=== PATIENT | female | born 1970 | race Caucasian/White ===

== ENCOUNTER 2022-01-09 11:30 | Outpatient (RCR) | payer MEDICARE, MEDICAID, SELFPAY ==
--- OUTSIDE RECORDS SUMMARY | 2021-12-27 14:47 | XMS_ITS | Continuity of Care Document ---
:1970 Author Care Team Providers Name Role Phone MD Austen H Attending Physician MD Emily M Primary Care Physician Allergies, Adverse Reactions, Alerts No known allergies Social History Smoking Status Status Start Date End Date Date of Observat ion Ex-smoker (finding) May 8:25pm Observation Status Observation Response Date of Response Smoker January 06, 2020 10:5 9am Does not drink alcohol January 06, 2020 1 0:59am Marijuana use January 06, 2020 2:04 pm Additional Data Assigned Sex Female Problems Active Problems Medical Problem Onset Date Status Myeloproliferative disorder 2016 Active Anemia Active GERD (gastroesophageal reflux disease) A ctive Splenomegaly Active Headache behind the eyes Active Depression Active Hypertension Active Anxiety Active 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 Opioid dependence Active Pulmonary hypertension Active Wrist tendonitis Active Myelofibrosis 2016 Active History of bone marrow biopsy Active Medications Medication Status Dose Units Route Directions Qty Days Start End Ins tructions Date Date Acetaminophe Active 500-10 MG PO Every 6 100 NO MORE THAN n (Tylenol 00 Hours as 4000 M G/DAY Extra needed Strength) 500 Mg TAB Allopurinol Active 300 MG PO Daily October 01, 2021 1:45pm Calcium Active 2 CAPSULE PO Three Times 180 Februar Acetate A Day 2021 9:04am Fedratinib Active 100 MG PO Twice A Day 2 caps BID Hcl (Inrebic) 100 Mg CAP Folic Acid Active 1 MG OR Daily August 06, 2021 11:47am Lorazepam Active 0.5-1 MG PO Every 6 November PRN Hours as , NAUSEA/VOMI TI needed 2021 NG 11:36am Morphine Active 15 MG PO Qhs 30 10 December Sulfate , (Morphine 2021 Sulfate Er) 11:36am 15 Mg TABCR Morphine Active 1 TAB PO Twice A Day 60 30 November Take one Sulfate , tablet every (Morphine 2021 12 hours Sulfate Er) 11:36am 60 Mg TABCR Naloxone Hcl Active 4 MG NA As Directed 1 Decembe If unresponsive, or not breathing. 1 spray into nostril. (Narcan) 4 r , Repeat every 2 to 3 minutes in alternating nostrils if Mg/0.1 Ml 2020 needed. Ca 911 for assistance. SPR 1:00pm Oxycodone Active 5 MG PO Every 6 120 November Hcl Hours as 24th, needed 2021 11:36am Polyethylene Active Glycol 3350 Sennosides Active (Senna-Lax) 8.6 Mg TAB Sodium Active 1 PO As Needed Bicarbonate- Citric Acid (Tiffanie-Seltze r Heartburn Re) Heartbrn TAB Thiamine Hcl Active 100 MG PO Daily 30 Decembe Take one daily X 7 days, starting today (Vitamin B r , then norma e one weekly while on Fedratinib 1) 100 Mg 2020 TAB 12:01pm Torsemide Active 20 MG PO Twice A Day October 01, 2021 1:45pm Allopurinol Disconti 300 MG PO Daily July nued 2021 11:47am 1:45pm Allopurinol Disconti 300 MG PO Daily 30 Januar nued y 2021 11:47a m Allopurinol Disconti Unknow PO Daily 30 Decemb nued n Dose er 2020 1:01pm Calcium Disconti 2 CAP PO Three Times 180 Februar Februa Acetate nued A Day y 2021, 10:15am 2021 9:04am Calcium Disconti 2 CAP PO Three Times 180 July Februa Acetate nued A Day 2021, 11:51am 2021 10:15a m Calcium Disconti 2 CAP PO Three Times 180 Decembe Januar Acetate nued A Day r 2020, 1:37pm 2021 11:51a m Calcium Disconti 2 CAP PO Three Times 180 Decemb Acetate nued A Day er 2020 1:37pm Fedratinib Disconti 100 MG PO Twice A Day October Hcl nued , (Inrebic) 2021 100 Mg CAP 12:43p m Folic Acid Disconti Januar nued y 2021 11:47a m Lorazepam Disconti 0.5-1 MG PO Every 6 October PRN nued Hours as , 24, NAUSEA/VOMI TI needed 2021 2021 NG 3:16pm 11:31a m Lorazepam Disconti 0.5-1 MG PO Every 6 September PRN nued Hours as , , NAUSEA/VOMI TI needed 2021 2021 NG 1:46pm 3:16pm Lorazepam Disconti 0.5-1 MG PO Every 6 September PRN nued Hours as y , , NAUSEA/VO MITI needed 2021 2021 NG 10:16am 1:46pm Lorazepam Disconti 0.5-1 MG OR Every 6 60 Julyua 1- 2 tabs nued Hours as 24, ry every 6 tyler rs needed 2021, as needed or 11:51am 2021 at HS 10:15a m Lorazepam Disconti 0.5-1 MG OR Every 6 60 Decembe Januar 1- 2 tabs nued Hours as r 21st, y every 6 h ours needed 2020 24, as needed or 12:20pm 2021 at HS 11:50a m Lorazepam Disconti 1-2 MG OR Every 6-8 60 Decembe Decemb 1-2 tabs nued Hours as r 17th, er every 6 h ours needed 2020, as needed or 9:07am 2020 at HS 12:20p m Lorazepam Disconti 1-2 Every 6-8 Decemb 1- 2 tabs nued Hours as er every 6 tyler rs needed 17th, as needed or 2020 at HS 9:02am Morphine Disconti 1 TAB PO Twice A Day 60 October Ta ke one Sulfate nued , tablet every (Morphine 2021 2021 12 hours Sulfate Er) 3:16pm 11:31a 60 Mg TABCR m Morphine Disconti 15 MG PO Qhs October Sulfate nued , , (Morphine 2021 2021 Sulfate Er) 3:16pm 11:31a 15 Mg TABCR m Morphine Disconti 1 TAB PO Twice A Day 60 September Ta ke one Sulfate nued , tablet every (Morphine 2021 2021 12 hours Sulfate Er) 1:47pm 3:16pm 60 Mg TABCR Morphine Disconti 15 MG PO Qhs 30 September Sulfate nued , , (Morphine 2021 2021 Sulfate Er) 1:47pm 3:16pm 15 Mg TABCR Morphine Disconti 1 TAB PO Twice A Day 60 September Take one Sulfate nued y , tablet zhang ry (Morphine 2021 2021 12 hours Sulfate Er) 10:16am 1:47pm 60 Mg TABCR Morphine Disconti 15 MG PO Qhs 30 September Sulfate nued y , (Morphine 2021 2021 Sulfate Er) 10:16am 1:47pm 15 Mg TABCR Morphine Disconti 1 TAB PO Twice A Day 60 July Take one Sulfate nued , ry tablet every (Morphine 2021, 12 hours Sulfate Er) 11:51am 2021 60 Mg TABCR 10:15a m Morphine Disconti 15 MG PO Qhs 30 July Sulfate nued , ry (Morphine 2021, Sulfate Er) 11:51am 2021 15 Mg TABCR 10:15a m Morphine Disconti 1 TAB PO Twice A Day 60 30 Decembe Januar Take one Sulfate nued r , y tablet zhang ry (Morphine 2020, 12 hours Sulfate Er) 12:20pm 2021 60 Mg TABCR 11:50a m Morphine Disconti 15 MG PO Qhs 30 30 Decembe Januar Sulfate nued r , y (Morphine 2020, Sulfate Er) 12:20pm 2021 15 Mg TABCR 11:50a m Morphine Disconti 1 TAB PO Twice A Day Decemb T hodan one Sulfate nued er tablet every (Morphine 21st, 12 hours Sulfate Er) 2020 60 Mg TABCR 12:20p m Morphine Disconti 15 MG PO Bedtime 60 Decembe Decemb Sulfate nued r 21st, er (Morphine 2020, Sulfate Er) 11:08am 2020 15 Mg TABCR 12:20p m Morphine Disconti 15 MG PO Every 12 60 Decembe Decemb Sulfate nued Hours r 17th, er (Morphine 2020, Sulfate Er) 9:07am 2020 15 Mg TABCR 11:08a m Morphine Disconti Unknow OR Bedtime Decemb Sulfate nued n Dose er (Morphine 21st, Sulfate Er) 2020 Unknown 11:07a Strength CAP m Morphine Disconti 15 MG PO Every 12 60 Decemb Sulfate nued Hours er (Morphine 17th, Sulfate Er) 2020 15 Mg TABCR 9:02am Morphine Disconti Decemb Sulfate nued er (Morphine 3rd, Sulfate Er) 2020 15 Mg TABCR 1:01pm Oxycodone Disconti 5 MG PO Every 6 120 October Hcl nued Hours as , , needed 2021 2021 3:16pm 11:31a m Oxycodone Disconti 5 MG PO Every 6 120 September Hcl nued Hours as , , needed 2021 2021 1:47pm 3:16pm Oxycodone Disconti 5 MG PO Every 6 120 Februar September Hcl nued Hours as y , , needed 2021 2021 10:16am 1:47pm Oxycodone Disconti 5 MG PO Every 6 120 July Februa Hcl nued Hours as , ry needed 2021, 11:49am 2021 10:15a m Oxycodone Disconti 5 MG PO Every 6 120 Decembe Januar Hcl nued Hours as r , y needed 2020, 12:33pm 2021 11:48a m Oxycodone Disconti 1 TAB PO Every 6-8 120 Decembe Decemb Take one Hcl nued Hours as r 17, er tablet ev iona needed 2020, 6 hours as 9:07am 2020 needed 12:33p m Oxycodone Disconti 1 TAB PO Every 6-8 Decemb Ta ke one Hcl nued Hours as er tablet ever y needed 17th, 6 hours as 2020 needed 9:02am Oxycodone Disconti Decemb Hcl nued er (Oxycontin) 3rd, 15 Mg TABCR 2020 1:01pm Pantoprazole Disconti 40 MG PO Twice A Day December mb Sodium nued , er 2019 9, 10:21am 2020 2:15pm Tamsulosin Disconti 0.4 MG PO Daily 10 January Novemb Hcl nued , er 2019 9, 2:19pm 2020 2:15pm Torsemide Disconti 20 MG PO Twice A Day 90 Februar September nu y , , 2021 2021 10:15am 1:45pm Torsemide Disconti 20 MG PO Twice A Day 90 Decembe Febru a nued r 7th, ry 2020, 12:17pm 2021 10:15a m Torsemide Disconti 20 MG PO Daily 90 Decembe Decemb nued r 3rd, er 2020 7th, 1:38pm 2020 12:17p m Torsemide Disconti 20 MG PO Daily 90 Decemb nued er , 2020 1:38pm Relevant Diagnostic Tests and/or Laboratory Data Laboratory Results Test Date/Time Result Interpretation Reference Result Comment Performing Range Site White Blood December 24, 3.87 5.00-10.00 [facility] Count [address] [facility] 9:05am [facility] [address] Red Blood December 24, 2.12 3.90-5.03 [facility] Count [address] [facility] 9:05am [facility] [address] Hemoglobin December 24, 6.0 12.0-15.5 CRITICAL READ [facility] [address] [facility] 9:05am [place] [address] Hematocrit December 24, 19.4 34.9-44.5 [facility] [address] [facility] 9:05am [place] [address] Mean December 24, 92 82-98 [facility] Corpuscular 2021 [address] [facility] Volume 9:05am [place] [address] Mean December 24, 28 27-34 [facility] Corpuscular 2021 [address] [facility] Hemoglobin 9:05am [facility] [address] Mean December 24, 31 32-36 [facility] Corpuscular 2021 [address] [facility] Hemoglobin 9:05am [facility] [address] Concent Platelet December 24, 95 150-450 [facility] Count [address] [facility] 9:05am [place] [address] RDW December 24, 27.8 11.5-15.3 [facility] Coefficient 2021 1999 [facility] 9:05am [place] [address] Neutrophils December 24, 62.3 50.0-70.0 [facility] (%) (Auto) 2021 [address] [facility] 9:05am [place] [address] Lymphocytes December 24, 12.4 25.0-45.0 [facility] (%) (Auto) 2021 [address] [facility] 9:05am [place] [address] Monocytes (%) December 24, 8.5 0.00-11.0 [facility] (Auto) [address] [facility] 9:05am [place] [address] Eosinophils December 24, 0.5 0.0-7.0 [facility] (%) (Auto) 2021 [address] [facility] 9:05am [place] [address] Basophils (%) December 24, 1.3 0.0-3.0 [facility] (Auto) [address] [facility] 9:05am [place] [address] Immature December 24, 15.0 [facility] Granulocyte % 2021 1999 [facility] (Auto) 9:05am [facility] [address] Neutrophils # December 24, 2.41 1.70-7.00 [facility] (Auto) [address] [facility] 9:05am [facility] [address] Lymphocytes # December 24, 0.48 0.90-2.90 [facility] (Auto) [address] [facility] 9:05am [facility] [address] Monocytes # December 24, 0.33 0.30-0.90 [facility] (Auto) [address] [facility] 9:05am [place] [address] Eosinophils # December 24, 0.02 0.00-0.50 [facility] (Auto) [address] [facility] 9:05am [facility] [address] Basophils # December 24, 0.05 0.00-0.20 [facility] (Auto) [address] [facility] 9:05am [place] [address] Immature December 24, 0.58 [facility] Granulocyte # 2021 [address] [facility] (Auto) 9:05am [facility] [address] Urine Color August YELLOW YELLOW [facility] [address] [facility] 11:28am [place] [address] Urine February CLEAR CLEAR [facility] Appearance [address] [facility] 11:28am [place] [address] Urine Glucose February NEGATIVE NEGATIVE [facility] (UA) [address] [facility] 11:28am [place] [address] Urine February NEGATIVE NEGATIVE [facility] Bilirubin [address] [facility] 11:28am [place] [address] Urine Ketones February NEGATIVE NEGATIVE [facility] [address] [facility] 11:28am [place] [address] Urine February 1.015 1.000-1.03 [facility] Specific [address] [facility] [place] 11:28am [place] [address] Urine pH August 7.0 5.0 - 8.5 [facility] [address] [facility] 11:28am [place] [address] Urine Protein February NEGATIVE NEGATIVE [facility] [address] [facility] 11:28am [place] [address] Urine February 0.2 0.2 [facility] Urobilinogen [address] [facility] [address] 11:28am [place] [address] Urine Nitrite February NEGATIVE NEGATIVE [facility] [address] [facility] 11:28am [place] [address] Urine Blood February NEGATIVE NEGATIVE [facility] [address] [facility] 11:28am [place] [address] Urine February NEGATIVE NEGATIVE [facility] Leukocyte [address] [facility] Esterase 11:28am [place] [address] Urine WBC February 0 0-2 [facility] [address] [facility] 11:28am [place] [address] Urine RBC February 0 0-2 [facility] [address] [facility] 11:28am [place] [address] Urine Other February 0 0 [facility] Casts [address] [facility] 11:28am [place] [address] Urine Other February 0 0 [facility] Crystals [address] [facility] 11:28am [place] [address] Urine February 0 0-FEW [facility] Squamous [address] [facility] Epithelial 11:28am [facility] [place] [address] Cells Urine February 0 0-FEW [facility] Bacteria [address] [facility] 11:28am [place] [address] Urine Mucus February 0 0 [facility] [address] [facility] 11:28am [place] [address] Urine February 0 0 [facility] Amorphous [address] [facility] Sediment 11:28am [place] [address] Urine Other February 0 [facility] Sediment [address] [facility] 11:28am [facility] [address] Random December 24, 122 60-115 [facility] Glucose [address] [facility] 9:05am [facility] [address] Blood Urea December 24, 33 7-30 [facility] Nitrogen [address] [facility] 9:05am [facility] [address] Creatinine December 24, 1.1 0.5-1.5 [facility] [address] [facility] 9:05am [place] [address] Estimated December 24, 57.05431 [facility] Creatinine 2021 [address] [facility] Clearance 9:05am [facility] [address] Sodium Level December 24, 140 135-149 [facility] [address] [facility] 9:05am [facility] [address] Potassium December 24, 5.0 3.6-5.1 [facility] Level [address] [facility] 9:05am [facility] [address] Chloride December 24, 102 96-114 [facility] Level [address] [facility] 9:05am [facility] [address] Carbon December 24, 32 20-32 [facility] Dioxide Level 2021 [address] [facility] 9:05am [facility] [address] Calcium Level December 24, 8.9 8.4-10.6 [facility] [address] [facility] 9:05am [facility] [address] Phosphorus October 3.9 2.5-4.5 [facility] Level [address] [facility] 12:14pm [facility] [address] Total Protein December 24, 6.6 6.0-8.3 The use of [facility] 2021 Eltrombopag, a [address] [facility] 9:05am bone marrow [place] [address] stimulant used to treat thrombocytopeni a and aplastic anemia, interferes with this measurement of total protein. A 5% bias has been observed. Albumin December 24, 4.5 3.3-5.0 [facility] [address] [facility] 9:05am [place] [address] Total December 24, 1.0 0.1-1.5 [facility] Bilirubin [address] [facility] 9:05am [place] [address] Aspartate December 24 12-35 [facility] Amino Transf [address] (AST/SGOT) 9:05am [facility] [place] [address] Alanine December 24 4-35 [facility] Aminotransfer [address] 9:05am [place] [address] (ALT/SGPT) Alkaline December 24 40-150 [facility] Phosphatase [address] 9:05am [place] [address] Amylase Level June 18-89 [facility] [address] [facility] 10:54am [place] [address] Lipase June 23-300 [facility] [address] [facility] 10:54am [place] [address] Troponin I August < 0.01 0.00-0.04 NORMAL- <0.04 [facility] 2021 NG/MLINDETERMIN [address] [facility] 1:18pm ATE- 0.04-0.09 [facility] [address] NG/MLMYOCARDIAL INJURY- >= 0.10 NG/MLPatients taking a high dose (>5mg/day) of Biotin supplement (vitamin B7) will demonstrate a >10% negative bias for this test. Whole Blood June 70-180 INTERPRETIVE [facility] Tactile Vitamin B1 2020 INFORMATION: [address] Level 10:54am Vitamin B1, [facility] [address] Whole BloodThis assay measures the concentration of thiamine diphosphate(TDP ), the primary active form of vitamin B1. Approximately 90percent of vitamin B1 present in whole blood is TDP. Thiamineand thiamine monophosphate, which comprise the remaining 10percent, are not measured.This test was developed and its performance characteristics determined by [facility]. It has not been cleared orapproved by the [place] Food and Drug Administration. This test wasperformed in a CLIA certified laboratory and is intended forclinical purposes.Perfor med By: [facility] [id number] [place] [id number] Director: Sulema Worley MD Microbiology Results Procedure Source Result Collection Result Result Performin g Date/Time Date/Time Comment Site Urine Culture URINE,LOLITA < 50,000 August 21August N [facility] Lab N CATCH COL/ML MIXED 2021 11:28am [address] [facility] GRAM 8:30am [facility] [address] POSITIVE MAMI ISOLATED URINE,LOLITA NO FURTHER August 21August [facility] N CATCH WORKUP 2021 11:28am [address] [facility] 8:30am [facility] [address] Advance Directives Advance Directive Response Recorded Date/Time Has patient completed a No May 22 8:25pm Health Care Directive? Insurance Providers Guarantor Jennifer Mendez Address [address] [place] [id number] Contact Info. Home Phone: Payer Policy Id Coverage Id Subscriber's Subscriber Id Effective E xpiration Name Date Date Medicare [id number] Jennifer Mendez [id number] Dena [facility] [id number] Jennifer Mendez [id number] Medicaid Dena Plan Encounters Encounter Location(s) Arrival/Admit Date Discharge/Depart Date Provider(s) Registered [place] December 26, 2021 [facility] 6:56am Plan of Treatment Future Tests Future scheduled test information is unavailable Pending Tests Pending diagnostic test information is unavailable Future Visits Future appointment information is unavailable Referrals to Other Providers Reason for Referral Start Provider Provider Contact Provider Address Referral Date Information [facility] PROVIDER, NOT A LOCAL Future Procedures Future procedure information is unavailable Future Medications Future medication information is unavailable Patient Instructions Blood & Blood Components (DC) Opioid Withdrawal (ED)
[2022-01-08] VITALS (7 sets, daily range): BP systolic 93–115; BP diastolic 56–77; PULSE 80–97; RESP 16–18; TEMP 36.1–36.6; O2SAT 97–100
--- NOTE | 2022-01-08 09:54 | ONC.NURNOTE ---
LS few fine cr. RLL . good air exchange through out. Heart reg s1s2
[2022-01-09 12:35] VITALS: BP 113/78; PULSE 94; RESP 16; TEMP 35.9
[2022-01-09 12:52] VITALS: BP 117/60; PULSE 89; RESP 18; TEMP 36.3
[2022-01-09 13:40] VITALS: BP 113/73; PULSE 84; RESP 18; TEMP 36.2
[2022-01-09 14:30] VITALS: BP 113/72; PULSE 80; RESP 18; TEMP 36.1
[2022-01-09 15:00] VITALS: BP 122/61; PULSE 86; RESP 18; TEMP 36
== END 2022-01-10 23:59 | disposition home or self-care (01) ==
LOC: CCIC 11:30
PROVIDERS: PCP Emergency Medicine; Visit Provider Internal Medicine Hematology & Oncology
DX: D75.81 Myelofibrosis (principal)
CPT/HCPCS: 36415; 36430; 86850; 86900; 86901; 86922; P9016

== ENCOUNTER 2022-02-05 08:30 | Outpatient (RCR) | payer MEDICARE, MEDICAID, SELFPAY ==
[2022-01-15 08:48] VITALS: BP 118/73; PULSE 96; RESP 16; TEMP 36; O2SAT 97
[2022-01-15 09:00] LABS: Basophils Percent Auto 2.2 % (0.0-3.0); Eosinophils Absolute Auto 0.02 K/uL (0.00-0.50); Eosinophils Percent Auto 0.4 % (0.0-7.0); Hematocrit 24.2 % (33.0-51.0); Immature Granulocytes Abs Auto 0.75 K/uL (0.00-0.30); Lymphocytes Percent Auto 12.7 % (20-44); Mean Corpuscular HGB Conc 30 gm/dL (32-36); Mean Corpuscular Hemoglobin 27 pg (26-34); Mean Corpuscular Volume 91 fL (80-100); Neutrophils Absolute Auto 2.82 K/uL (1.7-7.0); Neutrophils Percent Auto 60.6 % (42.0-72.0); RDW Coefficient of Variation % 24.9 % (11.5-15.5); Red Blood Count 2.65 m/uL (4.00-5.20); White Blood Count* 4.65 K/uL (4.50-11.00)
[2022-01-15 09:15] LABS: Chloride* 105 mmol/L (96-114); Potassium* 4.9 mmol/L (3.6-5.1); Sodium* 139 mmol/L (135-149)
[2022-01-15 09:18] LABS: Estimated Glomerular Filt Rate 67.36
[2022-01-15 09:19] LABS: Blood Urea Nitrogen* 28 mg/dL (7-30); Calcium* 8.8 mg/dL (8.4-10.6); Carbon Dioxide* 34 mmol/L (20-32); Glucose* 99 mg/dL (60-115)
[2022-01-15 09:27] LABS: Hemoglobin* 7.2 gm/dL (12.0-16.0); Platelet Count* 48 K/uL (140-440); Slide Review Reflex Yes
[2022-01-15 09:28] LABS: Slide Review Acceptable Review (Acceptable)
[2022-01-15 10:14] VITALS: BP 118/73; PULSE 96; RESP 20; TEMP 36.4; O2SAT 97
[2022-01-15 10:32] VITALS: BP 99/54; PULSE 83; RESP 20; TEMP 36.4; O2SAT 96
[2022-01-15 12:30] VITALS: BP 113/72; PULSE 86; RESP 16; TEMP 36.3; O2SAT 96
[2022-01-21 09:24] LABS: Basophils Percent Auto 1.9 % (0.0-3.0); Eosinophils Percent Auto 0.5 % (0.0-7.0); Hematocrit 20.8 % (33.0-51.0); Immature Granulocytes Abs Auto 0.47 K/uL (0.00-0.30); Lymphocytes Percent Auto 10.8 % (20-44); Mean Corpuscular HGB Conc 31 gm/dL (32-36); Mean Corpuscular Hemoglobin 28 pg (26-34); Mean Corpuscular Volume 91 fL (80-100); Monocytes Percent Auto 9.7 % (0.0-11.0); Neutrophils Percent Auto 64.4 % (42.0-72.0); Platelet Count* 70 K/uL (140-440); RDW Coefficient of Variation % 25.6 % (11.5-15.5); Red Blood Count 2.29 m/uL (4.00-5.20); White Blood Count* 3.71 K/uL (4.50-11.00)
[2022-01-21 09:37] LABS: Carbon Dioxide* 29 mmol/L (20-32); Chloride* 101 mmol/L (96-114); Glucose* 106 mg/dL (60-115); Potassium* 4.8 mmol/L (3.6-5.1); Sodium* 139 mmol/L (135-149)
[2022-01-21 10:45] LABS: Hemoglobin* 6.4 gm/dL (12.0-16.0); Slide Review Reflex Yes
[2022-01-21 10:47] LABS: Slide Review Acceptable Review (Acceptable)
[2022-01-21 13:02] LABS: Blood Urea Nitrogen* 41 mg/dL (7-30); Calcium* 9.3 mg/dL (8.4-10.6); Creatinine* 1.2 mg/dL (0.5-1.5); Estimated Glomerular Filt Rate 54.13
[2022-01-22 08:45] VITALS: BP 107/64; PULSE 90; RESP 16; TEMP 36.3; O2SAT 99
[2022-01-22 09:18] VITALS: BP 107/64; PULSE 90; RESP 16; TEMP 36.8
[2022-01-22 09:37] VITALS: BP 112/73; PULSE 91; RESP 14; TEMP 36.5
[2022-01-22 10:22] VITALS: BP 99/61; PULSE 88; RESP 14; TEMP 36.2; O2SAT 95
[2022-01-22 11:15] VITALS: BP 105/71; PULSE 90; RESP 14; TEMP 36.6
[2022-01-22 15:37] VITALS: TEMP 36.2
[2022-01-28 08:53] LABS: Basophils Percent Auto 1.5 % (0.0-3.0); Eosinophils Percent Auto 0.6 % (0.0-7.0); Hematocrit 19.2 % (33.0-51.0); Immature Granulocytes Abs Auto 0.46 K/uL (0.00-0.30); Lymphocytes Percent Auto 13.9 % (20-44); Mean Corpuscular HGB Conc 30 gm/dL (32-36); Mean Corpuscular Hemoglobin 28 pg (26-34); Mean Corpuscular Volume 91 fL (80-100); Neutrophils Percent Auto 62.4 % (42.0-72.0); RDW Coefficient of Variation % 26.4 % (11.5-15.5); Red Blood Count 2.11 m/uL (4.00-5.20); White Blood Count* 3.37 K/uL (4.50-11.00)
[2022-01-28 09:05] LABS: Chloride* 103 mmol/L (96-114)
[2022-01-28 09:06] LABS: Albumin* 4.2 g/dL (3.3-5.0); Potassium* 4.7 mmol/L (3.6-5.1); Sodium* 138 mmol/L (135-149)
[2022-01-28 09:09] LABS: Alanine Aminotransferase* 22 U/L (4-35); Alkaline Phosphatase* 39 U/L (40-150); Aspartate Amino Transferase* 25 U/L (12-35); Blood Urea Nitrogen* 35 mg/dL (7-30); Carbon Dioxide* 28 mmol/L (20-32); Creatinine* 1.1 mg/dL (0.5-1.5); Estimated Glomerular Filt Rate 60 ml/min; Glucose* 162 mg/dL (60-115); Total Protein* 6.3 g/dL (6.0-8.3)
[2022-01-28 09:10] LABS: Calcium* 8.4 mg/dL (8.4-10.6)
[2022-01-28 09:26] LABS: Platelet Count* 65 K/uL (140-440)
[2022-01-28 09:27] LABS: Hemoglobin* 5.8 gm/dL (12.0-16.0)
--- NOTE | 2022-01-28 10:20 | ONC.NURNOTE ---
Patient called re HGB. Type cross for 1 UNit IRRated packed cells for tomorrow am. denies bleeding or tary stools.
[2022-01-28 16:54] LABS: Slide Review Reflex No
[2022-01-29 08:05] VITALS: BP 97/56; PULSE 117; RESP 20; TEMP 36.1; O2SAT 97
[2022-01-29 08:45] VITALS: BP 97/56; PULSE 98; RESP 20; TEMP 36.1; O2SAT 97
[2022-01-29 09:03] VITALS: BP 96/66; PULSE 99; RESP 20; TEMP 36.8; O2SAT 96
[2022-01-29 09:48] VITALS: BP 103/52; PULSE 94; RESP 18; TEMP 36.4; O2SAT 96
[2022-01-29 10:37] VITALS: BP 101/52; PULSE 87; RESP 18; TEMP 36.8; O2SAT 97
[2022-01-29 10:48] VITALS: BP 121/76; PULSE 116; RESP 22; TEMP 36.9; O2SAT 94
[2022-02-01 09:35] VITALS: BP 122/81; PULSE 119; RESP 16; TEMP 36.7; O2SAT 96
[2022-02-01 10:06] VITALS: BP 122/81; PULSE 95; RESP 16; O2SAT 97
[2022-02-01 10:25] VITALS: BP 99/54; PULSE 10; RESP 16; TEMP 37; O2SAT 95
[2022-02-01 11:10] VITALS: PULSE 106; RESP 16; TEMP 36.9; O2SAT 96
[2022-02-01 12:10] VITALS: BP 100/57; PULSE 91; RESP 18; TEMP 36.2; O2SAT 96
[2022-02-01 12:45] VITALS: BP 111/72; PULSE 103; RESP 20; TEMP 36.7; O2SAT 98
[2022-02-04 08:48] LABS: Basophils Percent Auto 1.5 % (0.0-3.0); Eosinophils Percent Auto 0.6 % (0.0-7.0); Hematocrit 21.7 % (33.0-51.0); Immature Granulocytes Abs Auto 0.48 K/uL (0.00-0.30); Lymphocytes Percent Auto 10.4 % (20-44); Mean Corpuscular HGB Conc 31 gm/dL (32-36); Mean Corpuscular Hemoglobin 28 pg (26-34); Mean Corpuscular Volume 91 fL (80-100); Monocytes Percent Auto 8.3 % (0.0-11.0); Neutrophils Percent Auto 64.5 % (42.0-72.0); Red Blood Count 2.39 m/uL (4.00-5.20); White Blood Count* 3.26 K/uL (4.50-11.00)
[2022-02-04 09:01] LABS: Chloride* 102 mmol/L (96-114); Potassium* 4.6 mmol/L (3.6-5.1); Sodium* 138 mmol/L (135-149)
[2022-02-04 09:03] LABS: Creatinine* 1.1 mg/dL (0.5-1.5); Estimated Glomerular Filt Rate 60 ml/min
[2022-02-04 09:04] LABS: Blood Urea Nitrogen* 37 mg/dL (7-30); Calcium* 8.3 mg/dL (8.4-10.6); Carbon Dioxide* 30 mmol/L (20-32); Glucose* 159 mg/dL (60-115)
[2022-02-04 09:16] LABS: Hemoglobin* 6.7 gm/dL (12.0-16.0); Platelet Count* 48 K/uL (140-440)
[2022-02-04 09:17] LABS: Slide Review Reflex Yes
[2022-02-04 09:18] LABS: Slide Review Acceptable Review (Acceptable)
--- NOTE | 2022-02-04 09:20 | ONC.NURNOTE ---
Patient and spouse called with results from CBC, they will be back in tomorrow for irradiated blood transfusion.
[2022-02-05 09:00] VITALS: BP 103/58; PULSE 101; RESP 16; TEMP 36.4; O2SAT 95
[2022-02-05 09:38] VITALS: BP 103/58; PULSE 101; RESP 16; TEMP 36.6
[2022-02-05 10:00] VITALS: BP 104/56; PULSE 94; RESP 16; TEMP 36.6
[2022-02-05 10:45] VITALS: BP 108/70; PULSE 105; RESP 16; TEMP 36.2
[2022-02-05 11:45] VITALS: BP 102/56; PULSE 91; RESP 16; TEMP 36.3
[2022-02-05 12:15] VITALS: BP 111/73; PULSE 85; RESP 16; TEMP 36.6; O2SAT 98
== END 2022-02-10 23:59 | disposition home or self-care (01) ==
LOC: CCIC 08:30
PROVIDERS: PCP Emergency Medicine; Visit Provider Internal Medicine Hematology & Oncology
DX: D64.9 Anemia, unspecified (principal); D75.81 Myelofibrosis
CPT/HCPCS: 36415; 36430; 80048; 80053; 85025; 86850; 86900; 86901; 86922; P9016

== ENCOUNTER 2022-05-02 11:13 | Emergency (ER) | payer MEDICARE, MEDICAID, SELFPAY ==
[2022-05-02] VITALS (27 sets, daily range): BP systolic 109–130; BP diastolic 63–88; PULSE 65–77; RESP 20; TEMP 35.9; O2SAT 87–99; BMI 30.1
--- NOTE | 2022-05-02 11:40 | ED_ITS ---
HPI - General Adult General Time Seen by Provider: 11:40 Date Seen: 05/02/22 Chief complaint: Shortness of Breath/Dyspnea Stated complaint: Hard time breathing panic attack Time Seen by Provider: 05/02/22 11:13 Source: patient and RN notes reviewed Mode of arrival: ambulatory Limitations: no limitations History of Present Illness HPI narrative: Patient is a 52-year-old female coming in with her significant other for concern of orthopnea. She is short of breath and it is most problematic if she tries to lie down. She states she cannot lie down, is not getting sleep because of it. She states she gets up in her apartment and paces around. She is coughing up some phlegm at times, not may be new. There has been no fevers or chills. She is not having chest pain per se. She is known to have a ?bad valve? that is leaky. She sometimes will feel some fluttering but no sustained palpitations. Shortness of breath has really been worsening maybe over the last 5 days. She states she had a chest x-ray 2 weeks ago. She is on an oral blood thinner which she takes twice a day. She stopped Lovenox recently and was switched to oral anticoagulants. She has not had a prior thromboembolic event but does have myelofibrosis. She had a splenectomy at [place] in March I believe. She feels like she cannot get her burps up. She does suffer from chronic constipation, no diarrhea. She had some increased abdominal pain after eating yesterday. She reports some baseline vomiting which has been going on, today it was more phlegm. She states she takes a water pill for fluid buildup in her legs. She does take lorazepam and has been out of it for a few days, they were not sure if this is increasing her anxiety. Her significant other also notes the spells were she will seem like she is not able to find words. Patient states she has a very talkative person and has a lot of words to say. They are not experiencing this now. Related Data Home Medications Medication Instructions Recorded Confirmed acetaminophen 500 mg capsule 500 - 1,000 mg PO Q6H PRN 01/02/22 05/02/22 allopurinol 300 mg tablet 300 mg PO QDAY 01/02/22 05/02/22 calcium acetate(phosphat bind) 667 1,334 mg PO TID 01/02/22 05/02/22 mg capsule fedratinib 100 mg capsule (Inrebic) 200 mg PO BID 01/02/22 01/02/22 folic acid 1 mg tablet 1 mg PO QDAY 01/02/22 05/02/22 naloxone 2 mg intranasal .q2-3min PRN 01/02/22 05/02/22 opioid overdose polyethylene glycol 3350 17 17 g PO DAILY PRN constipation 01/02/22 05/02/22 gram/dose oral powder (Miralax) sennosides 8.6 mg tablet (Senna 8.6 mg PO DAILY PRN constipation 01/02/22 05/02/22 Lax) thiamine mononitrate (vit B1) 100 100 mg PO QDAY 01/02/22 05/02/22 mg tablet (Vitamin B-1 (mononitrate)) torsemide 20 mg tablet 20 mg PO BID 01/02/22 05/02/22 sodium bicarbonate 1,650 mg-citric 1 tab PO PRN 01/17/22 05/02/22 acid 1,000 mg effervescent tablet (Tiffanie-Hernshaw Heartburn) Previous Rx's Medication Instructions Recorded lorazepam 0.5 mg tablet 0.5 - 1 mg PO Q6H PRN anxiety, 04/05/22 nausea #60 tabs morphine 15 mg tablet,extended 15 mg PO .qhs #30 tabs 04/05/22 release morphine 60 mg tablet,extended 60 mg PO Q12H #60 tabs 04/05/22 release oxycodone 5 mg tablet 5 mg PO Q6H PRN pain #110 tabs 04/05/22 Allergies Allergy/AdvReac Type Severity Reaction Status Date / Time No Known Drug Allergies Allergy Verified 05/02/22 11:28 Review of Systems Status of ROS: Reports: 10 or more systems reviewed and unremarkable except as noted in History and below [facility] Medical History (Updated 05/02/22 @ 16:28 by Vianney Joyner MD) Anxiety Chronic pain due to neoplasm Myelofibrosis (2016) Pulmonary hypertension Right-sided heart failure Tricuspid valve regurgitation Surgical History (Updated 05/02/22 @ 12:09 by Vianney Joyner MD) History of bone marrow biopsy Post-splenectomy Exam Const: Vital Signs, click to edit/add: Vital Signs - 24 hr 05/02/22 11:19 05/02/22 11:49 05/02/22 11:41 Temperature 96.7 F L Pulse Rate 74 Pulse Rate [Right Pulse Oximeter] 77 Respiratory Rate 20 Blood Pressure Blood Pressure [Le ft Upper Arm] 121/77 Pulse Oximetry 96 96 98 Oxygen Delivery Me thod Room Air Oxygen Flow Rate 05/02/22 11:42 05/02/22 12:01 05/02/22 12:36 Temperature Pulse Rate 71 68 69 Pulse Rate [Right Pulse Oximeter] Respiratory Rate Blood Pressure 125/70 120/88 130/76 Blood Pressure [Le ft Upper Arm] Pulse Oximetry 99 98 95 Oxygen Delivery Me thod Oxygen Flow Rate 05/02/22 12:37 05/02/22 13:00 05/02/22 13:01 Temperature Pulse Rate 66 66 65 Pulse Rate [Right Pulse Oximeter] Respiratory Rate Blood Pressure 122/66 Blood Pressure [Le ft Upper Arm] Pulse Oximetry 94 93 91 Oxygen Delivery Me thod Oxygen Flow Rate 05/02/22 13:30 05/02/22 13:32 05/02/22 13:33 Temperature Pulse Rate 67 66 68 Pulse Rate [Right Pulse Oximeter] Respiratory Rate Blood Pressure 125/68 Blood Pressure [Le ft Upper Arm] Pulse Oximetry 91 90 88 Oxygen Delivery Me thod Oxygen Flow Rate 05/02/22 14:00 05/02/22 14:01 05/02/22 14:41 Temperature Pulse Rate 72 70 Pulse Rate [Right Pulse Oximeter] Respiratory Rate Blood Pressure 122/63 Blood Pressure [Le ft Upper Arm] Pulse Oximetry 88 88 97 Oxygen Delivery Me thod Nasal Cannula Oxygen Flow Rate 2 05/02/22 14:02 05/02/22 14:30 05/02/22 15:10 Temperature Pulse Rate 69 68 73 Pulse Rate [Right Pulse Oximeter] Respiratory Rate Blood Pressure Blood Pressure [Le ft Upper Arm] Pulse Oximetry 87 L 98 94 Oxygen Delivery Me thod Oxygen Flow Rate 05/02/22 15:11 05/02/22 15:12 05/02/22 15:30 Temperature Pulse Rate 74 69 67 Pulse Rate [Right Pulse Oximeter] Respiratory Rate Blood Pressure 125/73 Blood Pressure [Le ft Upper Arm] Pulse Oximetry 97 97 92 Oxygen Delivery Me thod Oxygen Flow Rate 05/02/22 15:31 Temperature Pulse Rate 65 Pulse Rate [Right Pulse Oximeter] Respiratory Rate Blood Pressure 120/68 Blood Pressure [Le ft Upper Arm] Pulse Oximetry 92 Oxygen Delivery Me thod Oxygen Flow Rate Documenting provider has reviewed patient's vital signs: yes Common normals: no apparent distress, oriented x3, no limitations, healthy appearing, alert and well nourished General appearance: cooperative, comfortable, well kempt and anxious Nutritional appearance: overweight Other: Able to speak in complete sentences while sitting up. Does appear pale. Certainly not tachypneic or in any apparent distress at this time. She is noted to not want to lie down at all though. HENMT: Common normals: normocephalic, head/scalp atraumatic, hearing grossly normal bilaterally, external ears normal, nasal mucous membranes and turbinates normal, moist oral mucous membranes, oropharynx normal, dentition normal and gingiva normal Head and scalp: normocephalic and atraumatic Nose: nasal mucous membranes and turbinates normal External ear: external ears normal Eye: Common normals: PERRL, EOMs intact bilaterally, conjunctivae normal and no scleral icterus Conjunctiva: conjunctiva(e) normal Pupil: PERRL Neck & C-Spine: Common normals: full ROM, no lymphadenopathy, supple, no meningeal signs, no JVD and thyroid normal Thyroid: thyroid normal Chest: Common normals: inspection of chest normal and palpation of chest normal Resp: Common normals: normal respiratory effort, no retractions, no use of accessory muscles and clear to auscultation bilaterally (Breath sounds are slightly diminished throughout) Auscultation: clear to auscultation bilaterally (Breath sounds are slightly diminished throughout) Cardio: Common normals: no JVD, regular rate, regular rhythm, S1 normal heart sound, S2 normal heart sound, no gallops and no clicks Rate: regular rate Rhythm: regular rhythm Heart sounds: S1 normal, S2 normal and murmur (2 to 3/6 systolic murmur heard along the upper sternal borders) GI: Common normals: Normal to inspection, nondistended, normoactive bowel sounds present, soft to palpation, no hepatosplenomegaly and no masses Palpation: soft and no hepatosplenomegaly Other: Has some mild mid abdominal tenderness without any rebound or guarding, no underlying masses felt. Surgical scars are well healed. Extremity: Other: Has thicker lower extremities but no pitting edema, no skin changes. No calf tenderness on palpation. Complains bottom of her feet hurt and they are visualize, do not see any definitive abnormality but does states her tender when I palpate. Neuro: [place] Coma Scale: document GCS findings [place] coma scale eye opening: Spontaneous (4) Yury coma scale verbal response: Orientated (5) Yury coma scale motor response: Obey commands (6) [place] coma scale total score: 15 Common normals: oriented x3, CN's II-XII intact bilaterally, moves all extremities, no focal motor deficits, no sensory deficits noted and gait normal Sensorium/orientation: alert Meningeal signs: no meningeal signs Speech: speech normal Psych: Appearance: well kempt Course Course Hospital Course: Will obtain IV access, have her on pulse oximetry and cardiac monitoring. Will obtain EKG and appropriate labs. Have reviewed with her that we may need to consider doing chest CT PE protocol, would consider taking this to her abdomen with her recent surgery in her current complaint of symptoms. She has many symptoms that are difficult to tie together. We do need to be concerned about the orthopnea however. I will start with a portable chest x-ray which can be done morning upright position. Right now she is hemodynamically stable and oxygenating fine, no arrhythmia. Cardiopulmonary etiologies, abdominal etiologies, thromboembolic issues stemming from her myelofibrosis all need to be considered. May need to consider neuro imaging as well. She is neurologically intact at this time. She is at risk for thromboembolic complications because of her myelofibrosis. Reevaluation(s) Reevaluation #1: Reviewed with patient that her chest x-ray looks normal, labs are reviewed. Her hemoglobin is at 7.7, they stated transfuse when her hemoglobin is under 7. She feels this is not her hemoglobin. She states her symptoms are different. Her platelet count is down into the 800,000 range. Her proBNP is elevated but again chest x-ray looked normal. Her D-dimer is elevated at 1.07. Nursing staff did note that when she was sleeping her O2 sats did go down to 88%. Patient and I discussed the need to do chest CT PE protocol. She states she will try her best. In order to aid her doing this, will give her 1 mg IV Ativan just before she goes to CT and will put 2 L nasal cannula oxygen on her for comfort during the CT. Time: 14:15 Reevaluation #2: Reviewed with patient that her chest CT PE protocol is normal. She is calmer now able to give me a bit more history. She states about 6-7 o'clock she will start feeling funny, comes on before she takes her last morphine for the night. Is happening in the evening. She is not able to settle down. Thus, what I was thinking was possibly true orthopnea sounds really like this might be more anxiety. Given her workup here, I am inclined to think that this is anxiety. She is out of her benzodiazepines and will give her a few here but she is aware we cannot be prescribing these chronically. She needs to talk to her doctor about other methods E and potential medicines to treat her anxiety. I find no clinical evidence that she is in decompensated heart failure. The workup is showing no infectious etiology, no thromboembolic disease. I have dispensed a smallest amount of Ativan at that we have in [employer], 10 tablets. Time: 16:24 Consultations Consultation #1: Did speak with Karol the nurse practitioner in charge of cancer care. She was able to give me some more information on this patient. She states she has a significant anxiety disorder and definitely takes benzodiazepines with opioids and does use marijuana for control of her symptoms. She also has chronic abdominal pain which is why the opioids were dispensed. She does believe she has some heart issues and is not ongoing smoker. She was more transfusion dependent prior to her splenectomy, requiring them about twice a week. Sense a splenectomy she has not needed this is frequently. Talked about consulting her foreign service teacher at [employer] if need be. Karine also brought up that there is some need for her to have some more establish care here if we are to be involved. Overall though she feels that the patient and her are reliable. 9 minutes was spent on the phone with Karol. Time: 12:53 Vital Signs Vital signs: Initial Vital Signs Temperature 96.7 F L 05/02/22 11:19 Temperature Source Temporal Artery Scan 05/02/22 11:19 Pulse Rate 77 05/02/22 11:19 Respiratory Rate 20 05/02/22 11:19 Blood Pressure 121/77 05/02/22 11:19 Blood Pressure Mean 91 05/02/22 11:19 Blood Pressure Position Sitting 05/02/22 11:19 Pulse Oximetry 96 05/02/22 11:19 Oxygen Delivery Method 05/02/22 11:19 Vital Signs Temperature 96.7 F L 05/02/22 11:19 Pulse Rate 77 05/02/22 11:19 Respiratory Rate 20 05/02/22 11:19 Blood Pressure 121/77 05/02/22 11:19 Pulse Oximetry 96 05/02/22 11:19 Oxygen Delivery Method 05/02/22 11:19 Temperature 96.7 F L 05/02/22 11:19 Pulse Rate 65 05/02/22 15:31 Respiratory Rate 20 05/02/22 11:19 Blood Pressure 120/68 05/02/22 15:31 Pulse Oximetry 92 05/02/22 15:31 Oxygen Delivery Method 05/02/22 14:41 Oxygen Flow Rate 2 05/02/22 14:41 Medical Decision Making Lab Data Lab results reviewed: Yes I reviewed the patient's lab results Labs: Lab Results 05/02/22 05/02/22 05/02/22 Range/Units 11:50 12:05 12:33 WBC 19.80 H (4.50-11.00) K/uL RBC 2.82 L (4.00-5.20) m/uL Hgb 7.7 L* (12.0-16.0) gm/dL Hct 26.3 L (33.0-51.0) % MCV 93 (80-100) fL MCH 27 (26-34) pg MCHC 29 L (32-36) gm/dL RDW Coeff of Hai 31.3 H (11.5-15.5) % Plt Count 830 H (140-440) K/uL Neut % (Auto) 36.5 L (42.0-72.0) % Lymph % (Auto) 36.5 (20-44) % [place] % (Auto) 11.3 H (0.0-11.0) % Eos % (Auto) 0.6 (0.0-7.0) % Baso % (Auto) 10.8 H (0.0-3.0) % Neut # (Auto) 7.20 H (1.7-7.0) K/uL Lymph # (Auto) 7.20 H (0.90-2.90) K/uL [place] # (Auto) 2.20 H (0.00-0.90) K/UL Eos # (Auto) 0.10 (0.00-0.50) K/uL Baso # (Auto) 2.10 H (0.00-0.30) K/uL Abs Immat Gran (auto) 1.35 H (0.00-0.30) K/uL Diff Slide Review Acceptable Review (Acceptable) D-Dimer Quant (PE/DVT) (0.00-0.50) ug/ml Sodium (135-149) mmol/L Potassium (3.6-5.1) mmol/L Chloride (96-114) mmol/L Carbon Dioxide (20-32) mmol/L BUN (7-30) mg/dL Creatinine (0.5-1.5) mg/dL Estimated Creat Clear Estimated GFR ml/min Glucose (60-115) mg/dL Lactate (0.5-1.9) mmol/L Calcium (8.4-10.6) mg/dL Total Bilirubin (0.1-1.5) mg/dL AST (12-35) U/L ALT (4-35) U/L Alkaline Phosphatase (40-150) U/L C-Reactive Protein (0.5-1.0) mg/dL NT-Pro-B Natriuret Pep (0-125) PG/mL Total Protein (6.0-8.3) g/dL Albumin (3.3-5.0) g/dL Lipase (23-300) U/L SARS-CoV-2 (PCR) Negative SARS-CoV-2 (Negative) Influenza Type A (PCR) Negative PCR FLU A (Negative) Influenza Type B (PCR) Negative PCR FLU B (Negative) RSV (PCR) Negative PCR RSV (Negative) POC Troponin I 0.03 (0.01-0.04) ng/ml 05/02/22 05/02/22 05/02/22 Range/Units 12:33 12:33 12:33 WBC (4.50-11.00) K/uL RBC (4.00-5.20) m/uL Hgb (12.0-16.0) gm/dL Hct (33.0-51.0) % MCV (80-100) fL MCH (26-34) pg MCHC (32-36) gm/dL RDW Coeff of Hai (11.5-15.5) % Plt Count (140-440) K/uL Neut % (Auto) (42.0-72.0) % Lymph % (Auto) (20-44) % [place] % (Auto) (0.0-11.0) % Eos % (Auto) (0.0-7.0) % Baso % (Auto) (0.0-3.0) % Neut # (Auto) (1.7-7.0) K/uL Lymph # (Auto) (0.90-2.90) K/uL [place] # (Auto) (0.00-0.90) K/UL Eos # (Auto) (0.00-0.50) K/uL Baso # (Auto) (0.00-0.30) K/uL Abs Immat Gran (auto) (0.00-0.30) K/uL Diff Slide Review (Acceptable) D-Dimer Quant (PE/DVT) 1.07 H (0.00-0.50) ug/ml Sodium 136 (135-149) mmol/L Potassium 4.3 (3.6-5.1) mmol/L Chloride 100 (96-114) mmol/L Carbon Dioxide 27 (20-32) mmol/L BUN 20 (7-30) mg/dL Creatinine 0.7 (0.5-1.5) mg/dL Estimated Creat Clear 92.68 Estimated GFR 103 ml/min Glucose 104 (60-115) mg/dL Lactate 0.9 (0.5-1.9) mmol/L Calcium 9.7 (8.4-10.6) mg/dL Total Bilirubin 0.5 (0.1-1.5) mg/dL AST 39 H (12-35) U/L ALT 44 H (4-35) U/L Alkaline Phosphatase 137 (40-150) U/L C-Reactive Protein 1.7 H (0.5-1.0) mg/dL NT-Pro-B Natriuret Pep 1940 H (0-125) PG/mL Total Protein 7.4 (6.0-8.3) g/dL Albumin 4.7 (3.3-5.0) g/dL Lipase 49 (23-300) U/L SARS-CoV-2 (PCR) (Negative) Influenza Type A (PCR) (Negative) Influenza Type B (PCR) (Negative) RSV (PCR) (Negative) POC Troponin I (0.01-0.04) ng/ml Imaging Data Chest x-ray: Attestation: I have reviewed the pertinent imaging results. My impression: I do not appreciate any acute cardiopulmonary disease, await Radiology over- read. Radiologist's impression: Patient: STAR MENDEZ Facility:?[facility] Patient ID:?[id number] Site Patient ID:?[id number]. Site :?[id number] Study:?XRay Chest 1 VIEW PORTABLE-05/02/2022 12:09:24 PM Ordering Physician:?Anya Faith Final Report: INDICATION: Shortness of breath, orthopnea. TECHNIQUE: Chest 1 views. COMPARISON: None. FINDINGS: Lungs: Clear lungs. No consolidation. Pleura: No pleural effusion or pneumothorax. Heart and Mediastinum: The cardiomediastinal silhouette is normal. The vessels are unremarkable. Bones: Unremarkable. IMPRESSION: No acute cardiopulmonary disease. Dictated by Binh Cheek MD @ 05/02/2022 12:23:56 PM (Electronic Signature) CT scan - chest: Attestation: I have reviewed the pertinent imaging results. Radiologist's impression: Patient: STAR MENDEZ Facility:?[facility] Patient ID:?[id number] Site Patient ID:?[id number]. Site :?[id number] Study:?CT Chest Angio W/95CC ISOVUE 370 PE PROTOCOL-05/02/2022 3:16:33 PM Ordering Physician:?Anya Faith Final Report: INDICATION: Myelofibrosis, shortness of breath, elevated D-dimer. TECHNIQUE: CT chest PE was acquired with 95 mL Isovue 370 IV contrast. Coronal and sagittal reformats were generated. COMPARISON: None. FINDINGS: Pulmonary arteries: The quality of enhancement of the pulmonary arteries is adequate. No filling defects to suggest pulmonary emboli. No findings of pulmonary artery hypertension. Thyroid: Unremarkable. Thoracic lymph nodes: No enlarged supraclavicular, mediastinal, hilar, or axillary lymph nodes. Mediastinum and esophagus: Unremarkable. Heart and vasculature: Unremarkable. Lungs: Unremarkable. Pleura: Unremarkable. Chest wall: Unremarkable. Upper abdomen: No acute or significant findings. Bones: Unremarkable for age. IMPRESSION: 1. No pulmonary embolism. 2. Clear lungs. Please note that all CT scans at this facility use dose modulation, iterative reconstruction, and/or weight-based dosing when appropriate to reduce radiation dose to as low as reasonably achievable. Dictated by Binh Cheek MD @ 05/02/2022 3:35:51 PM (Electronic Signature) ECG Data Attestation: I personally reviewed and interpreted this ECG as follows: (Sinus rhythm, 60 beats per minute, sinus arrhythmia. QT corrected 452 milliseconds. No acute change on this EKG.) Prior ECG tracings: not available for review Critical Care Time Critical Care Time Critical Care Time: No Discharge Plan Discharge Clinical Impression: Shortness of breath, Anxiety Condition: Stable Instructions: Anxiety (ED), Shortness of Breath (ED) Additional Instructions: Have provided a small supply of Ativan, the ER cannot be further dispensing this. Please follow-up with your primary care provider to discuss anxiety as s oon as you possibly can. Would recommend consideration of further medications, possibly even seeing psychiatry if need be. Keep oncology appointments that you have upcoming. Activity Level: Activity as Tolerated Prescriptions: No Action allopurinol 300 mg tablet 300 mg PO QDAY Label Comments: TAKE 1 TABLET BY MOUTH DAILY calcium acetate(phosphat bind) 667 mg capsule 1,334 mg PO TID Label Comments: TAKE 2 CAPSULES BY MOUTH THREE TIMES DAILY Inrebic 100 mg capsule 200 mg PO BID folic acid 1 mg tablet 1 mg PO QDAY Label Comments: TAKE 1 TABLET BY MOUTH DAILY thiamine mononitrate (vit B1) [Vitamin B-1 (mononitrate)] 100 mg tablet 100 mg PO QDAY torsemide 20 mg tablet 20 mg PO BID Label Comments: TAKE 1 TABLET BY MOUTH TWICE DAILY sennosides [Senna Lax] 8.6 mg tablet 8.6 mg PO DAILY PRN (Reason: constipation) polyethylene glycol 3350 [Miralax] 17 gram/dose powder 17 g PO DAILY PRN (Reason: constipation) naloxone 2 mg intranasal .q2-3min PRN (Reason: opioid overdose) acetaminophen 500 mg capsule 500 - 1,000 mg PO Q6H PRN Rx Instructions: Max of 4000mg in 24 hours Tiffanie-Hernshaw Heartburn 1,650-1,000 mg tablet, effervescent 1 tab PO PRN Rx Instructions: dissolved in 4 ounces of water lorazepam 0.5 mg tablet 0.5 - 1 mg PO Q6H PRN (Reason: anxiety, nausea) Qty: 60 0RF morphine 15 mg tablet extended release 15 mg PO .qhs Qty: 30 0RF morphine 60 mg tablet extended release 60 mg PO Q12H Qty: 60 0RF oxycodone 5 mg tablet 5 mg PO Q6H PRN (Reason: pain) Qty: 110 0RF Rx Instructions: max daily dose 4 tabs Follow Up/Referrals: Corie Diaz MD [Primary Care Provider] - Stand Alone Forms: [facility] Info Instructions
--- NOTE | 2022-05-02 11:49 | CRLHL7_ITS ---
For Patients: As a result of the Cures Act, medical imaging exams and procedure reports are released immediately into your electronic medical record. You may view this report before your referring provider. If you have questions, please contact your health care provider. INDICATION: Shortness of breath, orthopnea. TECHNIQUE: Chest 1 views. COMPARISON: None. FINDINGS: Lungs: Clear lungs. No consolidation. Pleura: No pleural effusion or pneumothorax. Heart and Mediastinum: The cardiomediastinal silhouette is normal. The vessels are unremarkable. Bones: Unremarkable. IMPRESSION: No acute cardiopulmonary disease. Dictated by Binh Cheek MD @ 05/02/2022 12:23:56 PM (Electronically Signed)
--- OUTSIDE RECORDS SUMMARY | 2022-05-02 12:00 | XMS_ITS | Clinical Summary ---
:1970 Author Organization [facility] [place] [address] Care Team Providers Name Role Phone None Primary Care Provider Unavailable Allergies No known active allergies Medications Medication Sig Dispensed Refills Start Date End Date Status IBUPROFEN 800 MG TAB take 1 tablet (800 30 0 11/21/2008 Active mg) by oral route 3 times per day with food HYDROcodone-acetamin Take 1-2 tablets by 15 tablet 0 5 Active ophen, 5-325 mg, mouth every 6 hours (NORCO) per tablet if needed for Pain. Max acetaminophen dose: 4000mg in 24 hrs. folic acid 1 mg Take 1 mg by mouth 0 09/19/2020 Active tablet once daily. allopurinoL Take 300 mg by mouth 0 09/18/2020 Active (ZYLOPRIM) 300 mg once daily. tablet LORazepam (ATIVAN) Take 0.5 mg by mouth 0 Active 0.5 mg tab 4 times daily if needed. morphine Take 15 mg by mouth 0 09/18/2020 Active CONTROLLED-RELEASE one time if needed. (MS CONTIN) 15 mg tablet morphine CONTROLLED Take 1 Tablet by 0 01/26/2019 Active RELEASE (MS CONTIN) mouth 2 times daily. 60 mg tablet Stimulant Laxative Take 8.6-50 Tablets 0 04/01/2020 Active Plus 8.6-50 mg by mouth 2 times tablet daily. sennosides-docusate, Take 1 Tablet by 0 Active 8.6-50 mg, (SENOKOT mouth 2 times daily S) 8.6-50 mg tablet if needed. Senna 8.6 mg tablet Take 8.6 mg by mouth 0 1 Active 2 times daily. sodium/potassium Take 1 Tablet by 0 Active bicarbonate citric mouth each time if acid (VASYL-SELTZER needed. GOLD) tablet pantoprazole Take 40 mg by mouth 0 12/30/2019 Active (PROTONIX) 40 mg once daily. 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 hemoglobin 10/04/2020 Social History Tobacco Use Types Packs/Day Years Used Date Former Smoker Quit: 09/28/19 12 Alcohol Use Standard Drinks/Week Comments No 0 (1 standard drink = 0.6 oz pure alcoho l) Sex Assigned at Date Recorded Not on file Obstetrics History Last Filed Vital Signs Vital Sign Reading Time Taken Comments Blood Pressure 113/66 05/24/2021 1:18 PM CHEMICAL TEST ENGINEER Pulse 111 05/24/2021 1:18 PM CHEMICAL TEST ENGINEER Temperature 36.2 ??C (97.1 ??F) 05/24/2021 1:18 PM CHEMICAL TEST ENGINEER Respiratory Rate 20 05/24/2021 1:18 PM CHEMICAL TEST ENGINEER Oxygen Saturation 94% 05/24/2021 11:07 AM CHEMICAL TEST ENGINEER Inhaled Oxygen Concentration - - Weight 92.1 kg (203 lb) 04/14/2021 1:22 PM CDT Height 170.2 cm (5' 7) 04/14/2021 1:22 PM CDT Body Mass Index 31.79 04/14/2021 1:22 PM CDT Plan of Treatment Health Maintenance Due Date Last Done Comments Tdap 1979 Depression screening for age 12+ 1980 BMI (ht and wt on same day) for age 18+ 1986 Hepatitis C screening for age 18-79 1986 Tetanus booster 1988 Pap test for age 21-65 1989 Colonoscopy through age 75 2013 Lipids for age 45-75 2013 Mammogram for age 45-75 2013 Zoster (shingles) series for age 50+ (1 of 2018 2) COVID-19 vaccine series (3 - Booster for 01/30/2021 021, 11/07/2020 Moderna series) Influenza for age 50-64 03/14/2022 Results Not on filefrom Last 3 Months Insurance Payer Benefit Plan / Subscriber ID Effective Dates Phone Addre ss Type Group MEDICARE PART B MEDICARE PART B [id number] 2020-Present ATTN: CLAIMS - HB USE ONLY HB ONLY [address] [place] [address] MEDICARE - PB MEDICARE PB [id number] 2020-Present ATT N: CLAIMS USE ONLY ONLY [address] [facility] [address] UCARE [place] UCARE [place] [id number] 2020-Present [address] [place] [address] [employer] Occ Other 07/14/2000 [employer] EM[employer] (Home) [phone] [place] ([place]) [place] [address] Care Teams Bingo Checker Relationship Specialty Start Date End Date None PCP - General 10/03/20 .
--- OUTSIDE RECORDS SUMMARY | 2022-05-02 12:01 | XMS_ITS | Encounter Summary ---
:1970 Author Organization [facility] Address [address] [place] [address] Care Team Providers Name Role Phone Elsewhere, Pcp Primary Care Provider Unavailable Reason for Visit Reason Comments Patient having panic attack Encounter Details Date Type Department Care Team Description 05/02/2022 Clinical Communication Division of Ann Marie Govea having panic Hematology in [facility] [address] [place] [address] [address] [place] [phone] Social History Tobacco Use Types Packs/Day Years Used Date Smoking Tobacco: Former Cigarettes 1 Quit : 2013 Smokeless Tobacco: Never Comments: still smokes marijuana Alcohol Use Standard Drinks/Week Comments Yes 0 (1 standard drink = 0.6 oz pure alcoho l) occasional Alcohol Habits Answer Date Recorded How often do you have a drink containing alcohol? Never 02/16/2021 How many drinks containing alcohol do you have on a typical Not asked day when you are drinking? How often do you have six or more drinks on one occasion? 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 - 05/02/2022 11:00 AM CDT I called Gian martinez Jennifer back and they are headed to the ER in [place]. He reports that she has had a lot of trouble sleeping the last two weeks, and is having panic attacks that seem to be increasing over the last couple of days. During these episodes she is SOB and cannot think clearly per his report. I reassured him that was the correct thing to do, it is best if she is evaluated in person. He will call us back and update us when he finds anything out. Telephone Encounter - Claudia Mackay - 05/02/2022 9:28 AM CDT Name of caller: Gian Dobbs Do we have a valid auth to speak with caller? No, authorization on file has Reason for call: Patient is having panic attacks and spouse is calling for recommendations on what to do Call back number is [phone]. Is it okay to leave a voicemail? yes. Thank you, Claudia Hematology [facility] MAA documented in 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 Care Teams Gas Compressor Turbine Operator Relationship Specialty Start Date End Date Elsewhere, Pcp PCP - General 11/04/21 documented as of this encounter
--- OUTSIDE RECORDS SUMMARY | 2022-05-02 12:01 | XMS_ITS | Encounter Summary ---
:1970 Author Organization [facility] Address [address] [place] [address] Care Team Providers Name Role Phone Elsewhere, Pcp Primary Care Provider Unavailable Reason for Visit Reason Comments Lab results Encounter Details Date Type Department Care Team Description 04/15/2022 Clinical Communication Division of Hematology Janusz Govea, Lab results in [facility] 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 yes If so, date of authorization: 03/07/16. Reason for call: Calls to discuss patients lab results from today. I indicated to patients spouse that we are still waiting for results and nursing will follow up after review with next steps Call back number is [phone] Is it okay to leave a voicemail? yes. Thank you, Claudia Hematology [facility] MAA documented in 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 Care Teams Switch Maker Relationship Specialty Start Date End Date Elsewhere, Pcp PCP - General 11/04/21 documented as of this encounter
--- OUTSIDE RECORDS SUMMARY | 2022-05-02 12:01 | XMS_ITS | Encounter Summary ---
:1970 Author Organization [facility] Address [address] [place] [address] Care Team Providers Name Role Phone Elsewhere, Pcp Primary Care Provider Unavailable Reason for Referral Outpatient (Routine) - Authorized Specialty Diagnoses / Procedures Referred By Contact Refer red To Contact [facility]ematology [facility] [address] [place] [phone] Referral ID Status Reason Start Date Expiration Date Visits V isits Requested Authorized [id number] Authorized 04/17/2022 04/16/2025 1 1 Scheduling Instructions In 4 months Reason for Visit Appointment Request (Routine) - Closed Specialty Diagnoses / Procedures Referred By Contact Refer red To Contact Hematology Referral ID Status Reason Start Date Expiration Date Visits Requ ested Visits Authorized [id number] Closed 03/21/2022 03/21/2023 1 1 Encounter Details Date Type Department Care Team Description 04/17/2022 Office Visit Division of Hematology Xuan, Myelo fibrosis Primary in [facility], (HCC) (Primary Dx) Bob M.B.B.S. 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 - 04/17/2022 11:00 AM CDT SUBJECTIVE CHIEF COMPLAINT/REASON FOR VISIT Primary myelofibrosis. HISTORY OF PRESENT ILLNESS Ms. Dobbs is a pleasant 52-year-old lady with primary myelofibrosis who is here accompanied by her . She had symptomatic splenomegaly and transfusion-dependent anemia, had failed multiple prior therapies including Jakafi, Alisertib, 9-ING clinical trial, and most recently fedratinib. We proceeded with a splenectomy on March 13. She is 5 weeks postop. She has done very well since the splenectomy and discharged from the hospital on March 18. She has had minimal abdominal discomfort. She has been on Lovenox for anticoagulation which she plans to complete a 6-week course. She has not required red blood cell transfusions. Previously, she required RBC transfusions once or twice weekly. Her CBC from Friday was reviewed. Her hemoglobin was 7.8 g/[place] [address], and platelet count was over a million. Hence, I have prescribed hydroxyurea, and she is currently on 500 mg twice daily. She has had no night sweats. Her nausea and emesis improved, with 2 bouts of vomiting. Overall, she is doing much better since after splenectomy. OBJECTIVE PHYSICAL EXAMINATION Vital Signs: Height is 170 cm. Weight 90.1 kg. Temperature 36.3. Pulse 88. Blood pressure 108/69. General: In no acute distress. Abdomen: Surgical scar is well healing. Lower Extremities: No edema. DIAGNOSTICS Laboratory studies from Friday were reviewed. 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 We are monitoring her blood counts at this point and given the extreme thrombocytosis and rise in the white count, she has been started on Hydrea 500 mg b.i.d. We will continue with weekly CBC check and Hydrea dose titrated accordingly. #4 Pulmonary hypertension She is on torsemide. #5 Consideration of allogeneic transplant I did receive a message from Dr. Zamarripa about haplo matches. At this time, we have decided to not proceed with transplant. She would like another 3-4 months to recuperate from the splenectomy. Follow up in [address] Job ID: [id number] documented in this encounter Plan of Treatment Scheduled Orders Name Type Priority Associated Diagnoses Order S chedule CBC with Differential, Lab Routine Myelofibrosis Prim kasie Expected: Blood ([facility]) 07/18/2022 (Approximate), Expires: 07/18/2023 SPSMA Result Pathology and Routine Myelofibrosis Primary Expec latonya: Cytology ([facility]) 07/18/2022 (Approximate), Expires: 04/17/2023 Comprehensive Lab Routine Myelofibrosis Primary Expec latonya: Metabolic Panel ([facility]) 07/18/2022 (Approximate), Expires: 07/18/2023 Uric Acid Lab Routine Myelofibrosis Primary Expect ed: (HCC) 07/18/2022 (Approximate), Expires: 07/18/2023 Scheduled Referrals Name Type Priority Associated Order Schedule Diagnoses Hematology office Outpatient Referral Routine Exp ected: visit (clinic) 07/18/2022 [facility]; (Approxima te), CMD; General Expires: 07/18/2023 documented as of this encounter Visit Diagnoses Diagnosis Myelofibrosis Primary (HCC) - Primary documented in this encounter Care Teams Intellectual Property Paralegal Relationship Specialty Start Date End Date Elsewhere, Pcp PCP - General 11/04/21 documented as of this encounter
--- OUTSIDE RECORDS SUMMARY | 2022-05-02 12:01 | XMS_ITS | Encounter Summary ---
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 The fax has been scanned into the patient record via [employer], and the CBC results are as noted below. Hemoglobin: 7.6 Hematocrit: 25.9 WBC: 23.94 ANC: 12.90 Platelets: 660 Please note: Are there additional labs reported on the outside report? No documented in 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 Care Teams Longwall Shearer Operator Relationship Specialty Start Date End Date Elsewhere, Pcp PCP - General 11/04/21 documented as of this encounter
--- OUTSIDE RECORDS SUMMARY | 2022-05-02 12:01 | XMS_ITS | Encounter Summary ---
:1970 Author Organization [facility] Address [address] [place] [address] Care Team Providers Name Role Phone Elsewhere, Pcp Primary Care Provider Unavailable Encounter Details Date Type Department Care Team Description 03/22/2022 Clinical Communication Pharmacy Prior [facility] Michelle Cano I. 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
--- OUTSIDE RECORDS SUMMARY | 2022-05-02 12:01 | XMS_ITS | Encounter Summary ---
:1970 Author Organization [facility] Address [address] [place] [address] Care Team Providers Name Role Phone Elsewhere, Pcp Primary Care Provider Unavailable Reason for Referral Outpatient (Routine) - Authorized Specialty Diagnoses / Procedures Referred By Contact Refer red To Contact [facility]ology [facility] 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 encounter Plan of Treatment Scheduled Orders Name Type Priority Associated Diagnoses Order S chedule Alkaline Phosphatase Lab Routine Myelofibrosis Primar y Expected: ([facility]) 08/22/2022 (Approximate), Expires: 07/19/2023 ALT (Alanine Lab Routine Myelofibrosis Primary Expect ed: Aminotransferase) ([facility]) 08/22/2022 (Approximate), Expires: 07/19/2023 AST (Aspartate Lab Routine Myelofibrosis Primary Expe cted: Aminotransferase) ([facility]) 08/22/2022 (Approximate), Expires: 07/19/2023 Bilirubin, Total Lab Routine Myelofibrosis Primary Ex pected: ([facility]) 08/22/2022 (Approximate), Expires: 07/19/2023 CBC with Differential, Lab Routine Myelofibrosis Prim kasie Expected: Blood ([facility]) 08/22/2022 (Approximate), Expires: 07/19/2023 Creatinine with Lab Routine Myelofibrosis Primary Exp ected: Estimated GFR ([facility]) 08/22/2022 (Approximate), Expires: 07/19/2023 Ferritin Lab Routine Myelofibrosis Primary Expect ed: ([facility]) 08/22/2022 (Approximate), Expires: 07/19/2023 LD (Lactate Lab Routine Myelofibrosis Primary Expect ed: Dehydrogenase) ([facility]) 08/22/2022 (Approximate), Expires: 07/19/2023 Potassium Lab Routine Myelofibrosis Primary Expect ed: ([facility]) 08/22/2022 (Approximate), Expires: 07/19/2023 Sodium Lab Routine Myelofibrosis Primary Expect ed: ([facility]) 08/22/2022 (Approximate), Expires: 07/19/2023 LD (Lactate Lab Routine Myelofibrosis Primary Expect ed: Dehydrogenase) ([facility]) 08/22/2022 (Approximate), Expires: 07/19/2023 SPSMA Result Pathology and Routine Myelofibrosis Primary Expec latonya: Cytology ([facility]) 08/22/2022 (Approximate), Expires: 07/19/2023 Reticulocytes Lab Routine Myelofibrosis Primary Expec latonya: ([facility]) 08/22/2022 (Approximate), Expires: 07/19/2023 Scheduled Referrals Name Type Priority Associated Order Schedule Diagnoses Hematology office Outpatient Referral Routine Exp ected: visit (clinic) 08/22/2022 [facility]; (Approxima te), BMT; General Expires: 07/19/2023 documented as of this encounter Visit Diagnoses Diagnosis Myelofibrosis Primary (HCC) - Primary documented in this encounter Care Teams Rack Maker Relationship Specialty Start Date End Date Elsewhere, Pcp PCP - General 11/04/21 documented as of this encounter
--- OUTSIDE RECORDS SUMMARY | 2022-05-02 12:01 | XMS_ITS | Encounter Summary ---
:1970 Author Organization [facility] Address [address] [place] [address] Care Team Providers Name Role Phone Elsewhere, Pcp Primary Care Provider Unavailable Encounter Details Date Type Department Care Team Description 04/26/2022 Specialty Pharmacy [facility] Abhinav Arriaga, [address] Sarabjit Starks Pharm.D., R.Ph. 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 - 04/26/2022 4:36 PM CDT [facility] Specialty Pharmacy service discontinued at this time. documented in 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 Care Teams Security Assessor Relationship Specialty Start Date End Date Elsewhere, Pcp PCP - General 11/04/21 documented as of this encounter
--- OUTSIDE RECORDS SUMMARY | 2022-05-02 12:01 | XMS_ITS | Encounter Summary ---
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 - 03/21/2022 3:40 PM CDT I spoke with her and let him know Dr. Govea would like her to continue with the folic acid and allopurinol for now. He asked about continuing the vitamin B12 (100 mcg once per week) and I advised them to continue that and if Dr. Govea would like to stop it I would call them back. Thanks, Cintia Telephone Encounter - Otilia Roman - 03/21/2022 11:28 AM CDT Patient and had some medication questions on her Folic Acid and allopurinol. Wanted to know whether or no she would keep taking them until her visit with Dr. Govea or stop them. Can you pleasecall the patient and advise them. Thank you Otilia Hem 3 DOS documented in 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 Care Teams Marine Painter Relationship Specialty Start Date End Date Elsewhere, Pcp PCP - General 11/04/21 documented as of this encounter
--- OUTSIDE RECORDS SUMMARY | 2022-05-02 12:01 | XMS_ITS | Encounter Summary ---
:1970 Author Organization [facility] Address [address] [place] [address] Care Team Providers Name Role Phone Elsewhere, Pcp Primary Care Provider Unavailable Encounter Details Date Type Department Care Team Description 03/19/2022 Clinical Communication Division of Hema Rothman, Hepatobiliary and M.D. 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 - 03/20/2022 9:36 AM CDT CHIEF COMPLAINT / REASON FOR CALL No chief complaint on file. PLAN The following information was provided: Mr. Dobbs was called to follow up on whether or not they were able to get the Lovenox yesterday. Mr. Dobbs states they got a 13 day supply. Mr. Dobbs states insurance will only pay for 1 shot per day. Mr. Dobbs states they are caught up on the shots and it was quite stressful getting things coordinated yesterday. Mr. Dobbs was advised to call back when they are almost out of this prescription, so we are sure we get that renewed for them in time next time. Mr. Dobbs states Mrs. Dobbs is feeling better everyday and plans to go downtown today. Mrs. Dobbs's pain is controlled and getting bettereveryday. Mr. Dobbs was appreciative of the phone call. Information/Education: patient/caller able to teach back The following references were used: nursing clinical judgement Telephone Encounter - Eliana Mayer - 03/19/2022 9:19 AM CDT Jennifer has missed two doses (yesterday afternoon and this morning) of her Lovenox. There seems to be a hold-up with her re-fills by her insurance company. Please call the pharmacy at [phone]. documented in 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 Care Teams Speech Correction Assistant Relationship Specialty Start Date End Date Elsewhere, Pcp PCP - General 11/04/21 documented as of this encounter
--- OUTSIDE RECORDS SUMMARY | 2022-05-02 12:01 | XMS_ITS | Encounter Summary ---
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 I did look under the media tab and the plt count was correct. Thanks, Cintia Telephone Encounter - Linda Apple - 04/08/2022 12:42 PM CDT Outside labs collected on 04/08/2022 have been received. The fax has been scanned into the patient record via [email or web address], and the CBC results are as noted below. Hemoglobin: 7.6 Hematocrit: 26.0 WBC: 19.65 ANC: 9.80 Platelets: 858 Please note: Are there additional labs reported on the outside report? Yes documented in 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 Care Teams Household Appliances Salesperson Relationship Specialty Start Date End Date Elsewhere, Pcp PCP - General 11/04/21 documented as of this encounter
--- OUTSIDE RECORDS SUMMARY | 2022-05-02 12:01 | XMS_ITS | Encounter Summary ---
:1970 Author Organization [facility] Address [address] [place] [address] Care Team Providers Name Role Phone Elsewhere, Pcp Primary Care Provider Unavailable Encounter Details Date Type Department Care Team Description 04/19/2022 Hospital Encounter Department of Annamaria De Luna Acquired; Laboratory Medicine Dewayne Dillon Myelofibrosis Primary (HCC) and Pathology, [address] [place] [address], in [facility] [address] [place] [phone] [place] [address] (Work) [place], [place] [phone] [phone] (Fax) [phone] Social History Tobacco Use Types Packs/Day Years [...] at Date Recorded 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 allopurinoL (ZYLOPRIM) Take one tab by 90 tablet 3 03/14/20 21 300 mg tablet mouth daily. calcium acetate,phosphat TAKE 2 CAPSULES BY 540 capsule 0 bind, (PHOSLO) 667 mg MOUTH THREE TIMES (169 mg calcium) capsule DAILY cyanocobalamin (VITAMIN Take 100 mcg by 0 B12) 100 mcg tablet mouth once a week. Mondays cyclobenzaprine Take 1 tablet (5 mg 8 tablet 0 03/18/2022 (FLEXERIL) 5 mg tablet total) by mouth 3 (three) times a day as needed for muscle spasms. enoxaparin (LOVENOX) 100 Inject 0.9 mL (90 mg 36 mL 0 0 04/01/2022 mg/mL injection total) under the skin 2 (two) times a day for 18 days. Continue medication until follow up appointments. Do not stop. folic acid 1 mg tablet Take by mouth daily. 0 hydroxyurea (HYDREA) 500 TAKE 1 CAPSULE BY 180 capsule 1 10/2021 mg capsule MOUTH TWICE DAILY. TAKE AT THE SAME TIME EACH DAY LORazepam (ATIVAN) 0.5 mg Take 1-2 mg by mouth 0 tablet at bedtime as needed for anxiety or sleep. morphine (MS CONTIN) 15 Take 15 mg by mouth 0 mg ER tablet at bedtime. With 60 mg for total dose of 75 mg in the evening morphine (MS CONTIN) 60 Take 1 tablet by 0 2018 mg ER tablet mouth 2 (two) times a day. oxyCODONE (ROXICODONE) 5 Take 1 tablet (5 mg 8 tablet 0 mg immediate release total) by mouth 2 tabletIndications: Acute (two) times a day Pain Exception Indication: Acute Pain Exception. sennosides (SENOKOT) 8.6 Take 1 tablet by 0 03/07 mg tablet mouth at bedtime as needed for constipation. sodium-potassium Take 1 tablet by 0 bicarbonate (VASYL-SELTZER mouth daily as GOLD) 344-1,050-1,000 mg needed (upset tablet, effervescent stomach). torsemide (DEMADEX) 20 mg Take 1 tablet (20 mg 30 tablet 1 06/12/2021 tablet total) by mouth daily. UNABLE TO FIND Med Name: Cannabis- 0 patient's reports this is newly prescribed for her and as of 03/11/22, has not yet started. Reports patient will have gummies as well as a tablet, have not picked these up yet. Strength of these is not known because they are new for her. documented as of this encounter Plan of Treatment Not on filedocumented as of this encounter Procedures Procedure Name Priority Date/Time Associated Diagnosis Comme nts MORPHOLOGY EVAL Routine 04/19/2022 9:47 Results f or this (SPECIAL SMEAR) AM CDT procedure ar e in the results section. CBC NO CALL BACK, Routine 04/19/2022 9:47 Myelofibrosis Primar y Results for this REFLEX T/S AM CDT (HCC) procedure are i n the results section. PROTHROMBIN TIME Routine 04/19/2022 9:47 Splenomegaly Ac quired Results for this (PT), P AM CDT Myelofibrosis Primary proced ure are in (HCC) the results section. BILIRUBIN DIRECT, S/P Routine 04/19/2022 9:47 Splenomega ly Acquired Results for this AM CDT Myelofibrosis Primary proced ure are in ([facility]) the results section. COMPREHENSIVE Routine 04/19/2022 9:47 Splenomegaly Acq uired Results for this METABOLIC PANEL, S/P AM CDT Myelofibrosis Primar y procedure are in (HCC) the results section. TYPE AND SCREEN Routine 04/19/2022 9:11 Results f or this AM CDT procedure are i n the results section. documented in this encounter Results (ABNORMAL) Morphology Evaluation (Special smear) (04/19/2022 9:47 AM CDT) [facility] Method Time Signature Neutrophilic Segs 70 50 - 75 % 04/19/2022 DHPM and Bands 11:46 AM CDT Lymphocytes 4 (L) 18 - 42 % 04/19/2022 DHPM 11:46 AM CDT Monocytes 17 (H) 2 - 11 % 04/19/2022 DHPM 11:46 AM CDT Metamyelocytes 2 (H) <1 % 04/19/2022 DHPM 11:46 AM CDT Myelocytes 7 (H) <0.5 % 04/19/2022 DHPM 11:46 AM CDT Nucleated RBC 181 /100 WBC 04/19/2022 DHPM 11:46 AM CDT Manual Absolute 10.99 (H) 1.56 - 04/19/2022 DHPM Neutrophil Count 6.45 11:46 AM CDT x10(9)/L Comment: ----ADDITIONAL INFORMATION---- The manual absolute neutrophil count is derived from a manual differential count and therefore is not exactly comparable to the automated absolute halie trophil count. Reviewed by: Liz 04/19/2022 11:46 AM CDT [facility] M Specimen Anatomical Collection Method Collection Time Receive d Time (Source) Location / / Volume Laterality Blood 04/19/2022 9:47 AM CDT 10:10 AM CDT Annamaria De Luna M.D. LAB PATHOLOGY/CYTOLOGY ORDER NAGI Performing Organization Address City/State/ZIP Code Phon e Number [facility] - [facility] [address] [place], [place] [address] [place] [address] Laboratories-[facility] [address] (ABNORMAL) CBC no call back, reflex T/S HGB <8 (04/19/2022 9:47 AM CDT) [facility] Method Time Signature Hemoglobin 7.9 (L) 11.6 - 04/19/2022 DTL 15.0 g/dL 10:28 AM CDT Hematocrit 28.1 (L) 35.5 - 04/19/2022 DTL 44.9 % 10:30 AM CDT Erythrocytes 2.89 (L) 3.92 - 04/19/2022 DTL 5.13 10:30 AM CDT x10(12)/L MCV 97.2 78.2 - 04/19/2022 DTL 97.9 fL 10:30 AM CDT RBC Distrib Width 27.4 (H) 12.2 - 04/19/2022 DTL 16.1 % 10:58 AM CDT Platelet Count 1041 (H) 157 - 371 04/19/2022 DTL x10(9)/L 11:46 AM CDT Comment: Results confirmed by smear, no clumping or interference seen. Leukocytes 15.7 (H) 3.4 - 9.6 x10(9)/L 04/19/2022 11:46 AM CDT DTL Comment: Corrected for normoblasts. Neutrophils SeeComment 1.56 - 6.45 x10(9)/L 04/19/2022 11:45 AM CDT [facility] Comment: Auto-diff results not valid. Se e manual differential. Specimen Anatomical Collection Method Collection Time Receive d Time (Source) Location / / Volume Laterality Blood (Blood, 04/19/2022 9:47 AM 04/19/20 22 Venous) CDT 10:10 AM CDT Annamaria De Luna M.D. LAB BLOOD NON ADD-ON Performing Organization Address City/State/ZIP Code Phon e Number [facility] - [address] [place], [place] [address] [facility] [place] [address] [facility] [address] [place] [address] [facility] [address] (ABNORMAL) Comprehensive Metabolic Panel (04/19/2022 9:47 AM CDT) athologist Signature Potassium, S 5.4 (H) 3.6 - 5.2 04/19/2022 DTL mmol/L 11:02 AM CDT Sodium, S 139 135 - 145 04/19/2022 DTL mmol/L 11:02 AM CDT Chloride, S 102 98 - 107 04/19/2022 DTL mmol/L 11:02 AM CDT Bicarbonate, S 29 22 - 29 04/19/2022 DTL mmol/L 11:02 AM CDT Anion Gap 8 7 - 15 04/19/2022 DTL 11:02 AM CDT BUN (Blood Urea 23 (H) 6 - 21 04/19/2022 DTL Nitrogen), S mg/dL 11:02 AM CDT Creatinine 0.99 0.59 - 04/19/2022 DTL 1.04 mg/dL 11:02 AM CDT Estimated GFR 68 >=60 04/19/2022 DTL (eGFR) mL/min/BSA 11:02 AM CDT Comment: Estimated GFR calculated using the 2020 CKD_EPI creatinine equation. Calcium, Total, S 9.5 8.6 - 10.0 mg/dL 04/19/2022 11:0 2 AM CDT DTL Glucose, S 104 70 - 140 mg/dL 04/19/2022 11:02 AM CDT DTL Protein, Total, S 6.4 6.3 - 7.9 g/dL 04/19/2022 11:02 AM CDT DTL Albumin, S 4.7 3.5 - 5.0 g/dL 04/19/2022 11:02 AM CDT DTL Aspartate Aminotransferase 47 (H) 8 - 43 U/L 04/19/2022 1 1:02 AM CDT DTL (AST), S Alkaline Phosphatase, S 144 (H) 35 - 104 U/L 04/19/2022 11 :02 AM CDT DTL Alanine Aminotransferase 74 (H) 7 - 45 U/L 04/19/2022 11: 02 AM CDT DTL (ALT), S Bilirubin, Total, S 0.3 <=1.2 mg/dL 04/19/2022 11:02 A M CDT DTL Specimen Anatomical Collection Method Collection Time Receive d Time (Source) Location / / Volume Laterality Blood (Blood, 04/19/2022 9:47 AM 04/19/20 Venous) CDT 10:32 AM CDT Aleyda Mcginnis P.A.-C., M.S. LAB BLOOD ADD-ON Performing Organization Address City/[facility] Phon e Number [facility] [address] Bilirubin, Direct (04/19/2022 9:47 AM CDT) P athologist Signature Bilirubin, <0.2 0.0 - 0.3 04/19/2022 DTL Direct, S mg/dL 11:02 AM CDT Specimen Anatomical Collection Method Collection Time Receive d Time (Source) Location / / Volume Laterality Blood (Blood, 04/19/2022 9:47 AM 04/19/20 Venous) CDT 10:32 AM CDT Aleyda Mcginnis P.A.-C., M.S. LAB BLOOD ADD-ON Performing Organization Address City/[facility] Phon e Number [facility] [address] (ABNORMAL) Prothrombin Time (PT) (04/19/2022 9:47 AM CDT) Patholo gist Method Time Signature Prothrombin 13.1 (H) 9.4 - 12.5 04/19/2022 DTL Time, P sec 10:25 AM CDT INR 1.2 0.9 - 1.1 04/19/2022 DTL 10:25 AM CDT Comment: ----ADDITIONAL INFORMATION---- Standard intensity warfarin therapeutic range: 2.0 to 3.0 ?? High intensity warfarin therapeutic rang e: 2.5 to 3.5 Specimen Anatomical Collection Method Collection Time Receive d Time (Source) Location / / Volume Laterality Blood (Blood, 04/19/2022 9:47 AM 04/19/20 Venous) CDT 10:10 AM CDT Aleyda Mcginnis P.A.-C., M.S. LAB BLOOD ADD-ON Performing Organization Address City/[facility] Phon e Number [facility] - [address] D[place] [address] Type and Screen (with reflex Antibody ID) (04/19/2022 9:11 AM CDT) [facility] gist Method Time Signature ABORh A Pos Not 04/19/2022 ETRM applicable 12:55 PM CDT Antibody Negative Negative 04/19/2022 ETRM Screen 1:07 PM CDT Type & Screen 04/22/2022 04/19/2022 ETRM Expiration 23:59 12:55 PM CDT Testing [place] DEFAULT 04/19/2022 ETRM Location 12:13 PM CDT Specimen Anatomical Collection Method Collection Time Receive d Time (Source) Location / / Volume Laterality Blood 04/19/2022 9:11 AM CDT 12:13 PM CDT Annamaria De Luna M.D. LAB BLOOD BANK TEST ORDERABL ES Performing Organization Address City/[facility] Phon e Number [facility] - [address] ETRM [address] documented in this encounter Visit Diagnoses Diagnosis Splenomegaly Acquired Myelofibrosis Primary (HCC) documented in this encounter Care Teams Textile Technical Officer Relationship Specialty Start Date End Date Elsewhere, Pcp PCP - General 11/04/21 documented as of this encounter
--- OUTSIDE RECORDS SUMMARY | 2022-05-02 12:01 | XMS_ITS | Encounter Summary ---
:1970 Author Organization [facility] Address [address] [place] [address] Care Team Providers Name Role Phone Elsewhere, Pcp Primary Care Provider Unavailable Encounter Details Date Type Department Care Team Description 04/15/2022 Orders Only Division of Hematology in [place], [place] M.B.B.S. 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
--- OUTSIDE RECORDS SUMMARY | 2022-05-02 12:01 | XMS_ITS | Encounter Summary ---
:1970 Author Organization [facility] Address [address] [place] [address] Care Team Providers Name Role Phone Elsewhere, Pcp Primary Care Provider Unavailable Reason for Visit Reason Comments Lovenox Prescription Encounter Details Date Type Department Care Team Description 04/01/2022 Clinical Division of Hema Rothman Communication Hepatobiliary and E MKathleen Prescription Pancreas Surgery in [address] [place] [address] [place] [address] [place], [place] [phone] [address] (Work) [phone] Social History Tobacco Use Types Packs/Day Years [...] at Date Recorded 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 - 04/01/2022 9:24 AM CDT I called Gian back to clarify and then sent a new prescription to the requested pharmacy. Telephone Encounter - Lamar Llanes - 04/01/2022 9:14 AM CDT Patient's calling today. States that syringe broke for Lovenox injection for this a.m. and so she has not received that yet today. They also were only able to fill have the prescription due to insurance and need another prescription sent to [facility] in [place], [place] ([place]) today in order to get more. Questions, please contact them back to discuss. documented in 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 Care Teams Resp Therapist Relationship Specialty Start Date End Date Elsewhere, Pcp PCP - General 11/04/21 documented as of this encounter
--- OUTSIDE RECORDS SUMMARY | 2022-05-02 12:01 | XMS_ITS | Encounter Summary ---
:1970 Author Organization [facility] Address [address] [place] [address] Care Team Providers Name Role Phone Elsewhere, Pcp Primary Care Provider Unavailable Reason for Visit Reason Comments Med Refill Encounter Details Date Type Department Care Team Description 04/15/2022 Refill Division of Hematology in [facility] , Med Refill [place], [place] M.B.B.S. 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
--- OUTSIDE RECORDS SUMMARY | 2022-05-02 12:01 | XMS_ITS | Encounter Summary ---
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 Se e manual differential. Specimen Anatomical Collection Method Collection Time Receive d Time (Source) Location / / Volume Laterality Blood (Blood, 04/19/2022 9:47 AM 04/19/20 22 Venous) CDT 10:10 AM CDT Annamaria De Luna M.D. LAB BLOOD NON ADD-ON Performing Organization Address City/State/ZIP Code Phon e Number [facility] - [address] [place], [place] [address] [facility] [place] [address] [facility] [address] [place] [address] [facility] [address] documented in this encounter Visit Diagnoses Diagnosis Myelofibrosis Primary (HCC) - Primary documented in this encounter Care Teams Womens Health Nurse Practitioner Relationship Specialty Start Date End Date Elsewhere, Pcp PCP - General 11/04/21 documented as of this encounter
--- OUTSIDE RECORDS SUMMARY | 2022-05-02 12:01 | XMS_ITS | Encounter Summary ---
:1970 Author Organization [facility] Address [address] [place] [address] Care Team Providers Name Role Phone Elsewhere, Pcp Primary Care Provider Unavailable Reason for Visit Reason Comments Lab results and care plan Encounter Details Date Type Department Care Team Description 04/15/2022 Clinical Communication Division of Rickie Govea r esults and care Hematology in [facility] [address] [facility] [address] [place] [address] [phone] Social History Tobacco Use Types Packs/Day Years [...] at Date Recorded 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 - 04/15/2022 3:55 PM CDT I called and spoke with Gian, and let him know Dr. Govea would like to start Jennifer on Hydrea at 2 tabs daily. This was called in to [facility] in [place] and he will pick them up later today. I reassured him that after spleen removal, Dr. Govea said this is not unexpected for the platelet count toincrease, and she will discuss further with them at her appointment on Friday.He was agreeable toplan and had no further questions. Telephone Encounter - Mary Ann Shaver R.N. 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 I did look under the media tab and the plt count was correct. and local lab called to discuss next steps. Cintia Carr Telephone Encounter - Linda Apple - 04/15/2022 3:15 PM CDT Outside labs collected on 04/15/2022 have been received. The fax has been scanned into the patient record via [employer], and the CBC results are as noted below. Hemoglobin: 7.8 Hematocrit: 27.1 WBC: 43.22 ANC: 15.60 Platelets: 1061 Please note: Are there additional labs reported on the outside report? Yes Telephone Encounter - Linda Apple - 04/15/2022 1:26 PM CDT [facility] sending lab results drawn 04/15/2022 Fax has been sent to scanning Telephone Encounter - Claudia Mackay - 04/15/2022 1:01 PM CDT Name of caller: [facility] Rhea Roberson Reason for call: requests to discuss lab results from today that will be faxed for review Please also fax patient care updates to [phone] after return appointment with Dr. Govea on 04/17 Call back number is [phone]. Thank you, Claudia Hematology [facility] KARRIE documented in 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 Care Teams Flooring Sales Manager Relationship Specialty Start Date End Date Elsewhere, Pcp PCP - General 11/04/21 documented as of this encounter
--- OUTSIDE RECORDS SUMMARY | 2022-05-02 12:01 | XMS_ITS | Encounter Summary ---
:1970 Author Organization [facility] Address [address] [place] [address] Care Team Providers Name Role Phone Elsewhere, Pcp Primary Care Provider Unavailable Reason for Referral MRI/CAT/PET Scan (Routine) - Closed Specialty Diagnoses / Procedures Referred By Contact Refer red To Contact Radiology Diagnoses Splenomegaly Acquired Myelofibrosis Primary (HCC) Aleyda Mcginnis P.A.-C., [place] Procedures CT Abdomen Pelvis with IV Contrast [facility] [address] [place] [phone] Referral ID Status Reason Start Date Expiration Date Visits Requ ested Visits Authorized [id number] Closed 03/18/2022 03/18/2023 1 1 Reason for Visit MRI/CAT/PET Scan (Routine) - Closed Specialty Diagnoses / Procedures Referred By Contact Refer red To Contact Radiology Diagnoses Splenomegaly Acquired Myelofibrosis Primary (HCC) Aleyda Mcginnis P.A.-C., [place] Procedures CT Abdomen Pelvis with IV Contrast [facility] 200 [place] [address] Referral ID Status Reason Start Date Expiration Date Visits Requ ested Visits Authorized [id number] Closed 03/18/2022 03/18/2023 1 1 Encounter Details Date Type Department Care Team Description 04/19/2022 Hospital Encounter Department of Aleyda Mcginnis Acquired; Radiology, Lexus Herndon P.A.-C., Myelofibros is Primary (HCC) Building, in [facility] 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 folic acid 1 mg tablet Take by [...] encounter Procedures Procedure Name Priority Date/Time Associated Comments Diagnosis CT ABDOMEN PELVIS RAD - Routine 04/19/2022 1:04 Splenomegaly Result s for this WITH IV CONTRAST (most inpatients PM CDT Acquired procedure are in and all Myelofibrosis the results outpatients) Primary (HCC) section. documented in this encounter Results CT Abdomen Pelvis with IV Contrast (04/19/2022 1:04 PM CDT) Anatomical Region Laterality Modality Abdomen, Pelvis, Abdominal RST LOS, N/A Comp uted Tomography, Computed Abdominal ARZ LOS, Abdominal FLA LOS Esa ography Specimen (Source) Anatomical Collection Method Collection Time Re ceived Time Location / / Volume Laterality 04/19/2022 1:01 PM CDT Impressions 04/19/2022 3:09 PM CDT 1. ??3.8 cm encapsulated but not rim-enhancing fluid collection at the pancreatic tail bordering adjacent surgical material, could potent ially represent a postoperative collection, however, a pancreatic injury and resultant leak can not be completely excluded. Continued attention on follow-up imaging recommended. 2. ??Trace to small volume indeterminate density fluid within the splenectomy bed extending to the left subdiaphragmatic region and does no t clearly communicate/emanating from the fluid collection described in impression #1, may be posto perative. 3. ??Patent vasculature. 4. ??Other chronic/nonacute findings, as detailed. Narrative 04/19/2022 3:09 PM CDT EXAM: ??CT ABDOMEN PELVIS WITH IV CONTRAST COMPARISON: ??[facility], including most recent CT from 02/16/2021. FINDINGS: ??Postoperative changes of spl enectomy. There is an encapsulated but not rim-enh ancing fluid collection situated at the pancreatic tail, intimately apposed to the adjacent surgi hortencia material measuring approximately 3.8 x 3.7 x 3.3 cm. There is mild stranding about this fluid collection. Additionally, there is small volume intermediate density fluid within the sp lenectomy bed and within the left subdiaphragmatic space. There is mild ill-defined stranding bord ering the celiac trunk and proximal SMA. Patent celiac trunk, hepatic arteries, SMA, and imaged portions of the HITESH. Patent portal veins, hepatic veins, and SMV. Persistent hepatomegaly without suspicio us hepatic lesion. Gallbladder contains several nitrogen stones without evidence of acute cholecy stitis. No pancreaticobiliary ductal dilation. Stable size of left adrenal nodule the study dating back to 06/05/2020, could represent adrenal adenoma. Tiny to small renal cysts. No hydronephrosis. Si milar scattered mildly prominent periaortic lymph nodes. No definite suspicious lymphadenopathy. No bowel obstruction. Unremarkable bladder and uterus. No definite suspicious adnexal mass. Scatte red anterior abdominal wall stranding/nodules, could be related to sequela of medication injecti ons. Diffusely heterogenous osseous structures, which could represent sequela of patient's known mye lofibrosis. Mild anasarca. Procedure Note Stephen Sheth D.O. - 04/19/2022 EXAM: CT ABDOMEN PELVIS WITH IV CONTRAST COMPARISON: Comparison is made to [facility] le prior studies, including most recent CT from 02/16/2021. FINDINGS: Postoperative changes of splen ectomy. There is an encapsulated but not rim-enh ancing fluid collection situated at the pancreatic tail, intimately apposed to the adjacent surgi hortencia material measuring approximately 3.8 x 3.7 x 3.3 cm. There is mild stranding about this fluid collection. Additionally, there is small volume intermediate density fluid within the sp lenectomy bed and within the left subdiaphragmatic space. There is mild ill-defined stranding bord ering the celiac trunk and proximal SMA. Patent celiac trunk, hepatic arteries, SMA, and imaged portions of the HITESH. Patent portal veins, hepatic veins, and SMV. Persistent hepatomegaly without suspicio us hepatic lesion. Gallbladder contains several nitrogen stones without evidence of acute cholecy stitis. No pancreaticobiliary ductal dilation. Stable size of left adrenal nodule the study dating back to 06/05/2020, could represent adrenal adenoma. Tiny to small renal cysts. No hydronephrosis. Si milar scattered mildly prominent periaortic lymph nodes. No definite suspicious lymphadenopathy. No bowel obstruction. Unremarkable bladder and uterus. No definite suspicious adnexal mass. Scatte red anterior abdominal wall stranding/nodules, could be related to sequela of medication injecti ons. Diffusely heterogenous osseous structures, which could represent sequela of patient's known mye lofibrosis. Mild anasarca. IMPRESSION: 1. 3.8 cm encapsulated but not rim-enhan cing fluid collection at the pancreatic tail bordering adjacent surgical material, could potent ially represent a postoperative collection, however, a pancreatic injury and resultant leak can not be completely excluded. Continued attention on follow-up imaging recommended. 2. Trace to small volume indeterminate d ensity fluid within the splenectomy bed extending to the left subdiaphragmatic region and does no t clearly communicate/emanating from the fluid collection described in impression #1, may be posto perative. 3. Patent vasculature. 4. Other chronic/nonacute findings, as d etailed. Aleyda Mcginnis P.A.-C., [facility] IMG CT PROCEDURES documented in this encounter Visit Diagnoses Diagnosis Splenomegaly Acquired Myelofibrosis Primary (HCC) documented in this encounter Administered Medications Inactive Administered Medications - up to 3 most recent administrations Medication Order MAR Action Action Date Dose Rate Site iohexoL 350 mg iodine/mL solution Given 04/19/2022 1:03 PM CDT 1 40 mL 1-200 mL (OMNIPAQUE) 1-200 mL, intravenous, Once in imaging, contrast, Starting on Fri04/19/22 at 1215, For 1 dose, Imaging Protocol Orders, Dose per Radiant Medication Guidelines sodium chloride (PF) 0.9 % injection 1-1 00 mL Given 04/19/2022 1:03 PM CDT 50 mL 1-100 mL, intravenous, Once, On Fri04/19/22 at 1230, For 1 dose, Imaging Protocol Orders documented in this encounter Care Teams Technical Program Manager Relationship Specialty Start Date End Date Elsewhere, Pcp PCP - General 11/04/21 documented as of this encounter
--- OUTSIDE RECORDS SUMMARY | 2022-05-02 12:01 | XMS_ITS | Encounter Summary ---
:1970 Author Organization [facility] Address [address] [place] [address] Care Team Providers Name Role Phone Elsewhere, Pcp Primary Care Provider Unavailable Encounter Details Date Type Department Care Team Description 04/18/2022 Documentation Division of Hematology in Isidro Zamarripa, [place], [place] Murphy, B.Ch. 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 - 04/18/2022 12:[address] Govea. Ms. Dobbs is recovering from splenectomy. Plan to reassess for possible transplant on return visit in approx 4 months. I will plan on seeing at that time also. Happy to see sooner if a need arises. documented in 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 Care Teams Manager Eligibility Relationship Specialty Start Date End Date Elsewhere, Pcp PCP - General 11/04/21 documented as of this encounter
--- OUTSIDE RECORDS SUMMARY | 2022-05-02 12:01 | XMS_ITS | Encounter Summary ---
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 Cintia Carr Telephone Encounter - Linda Apple - 04/02/2022 7:15 AM CDT Outside labs collected on 04/01/2022 have been received. The fax has been scanned into the patient record via [employer], and the CBC results are as noted below. Hemoglobin: 7.4 Hematocrit: 25.4 WBC: 23.70 ANC: 10.90 Platelets: 660 Please note: Are there additional labs reported on the outside report? Yes documented in 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 Care Teams Hot Strip Finisher Relationship Specialty Start Date End Date Elsewhere, Pcp PCP - General 11/04/21 documented as of this encounter
--- OUTSIDE RECORDS SUMMARY | 2022-05-02 12:01 | XMS_ITS | Clinical Summary ---
:1970 Author Organization [facility] Address [address] [place] [id number] Care Team Providers Name Role Phone Elsewhere, Pcp Primary Care Provider Unavailable Source Comments Patient records contain information from all sites at [facility]. For routine questions regarding patient records, call [phone] during business hours, M-F 8:00 AM - 5:00 PM Central Time. Record requests for emergency care only can be directed to [phone] at any time.[facility] Allergies No known active allergies Medications Medication Sig Dispensed Refills Start Date End Date Status morphine (MS CONTIN) 60 Take 1 tablet by 0 9 Active mg ER tablet mouth 2 (two) times a day. sennosides (SENOKOT) Take 1 tablet by 0 03/07/2016 Active 8.6 mg tablet mouth at bedtime as needed for constipation. sodium-potassium Take 1 tablet by 0 Active bicarbonate mouth daily as (VASYL-SELTZER GOLD) needed (upset 344-1,050-1,000 mg stomach). tablet, effervescent folic acid 1 mg tablet Take by mouth 0 Active daily. LORazepam (ATIVAN) 0.5 Take 1-2 mg by 0 Active mg tablet mouth at bedtime as needed for anxiety or sleep. allopurinoL (ZYLOPRIM) Take one tab by 90 tablet 3 03/14/2021 Active 300 mg tablet mouth daily. torsemide (DEMADEX) 20 Take 1 tablet (20 30 tablet 1 1 Active mg tablet mg total) by mouth daily. Additional Information Patient taking differently: 20 mg oral Every morning, May take an additional dose in the evening if needed for swelling, Reported on 03/18/2022 cyanocobalamin (VITAMIN B12) Take 100 mcg by mouth 0 Active 100 mcg tablet once a week. Mondays calcium acetate,phosphat TAKE 2 CAPSULES BY 540 capsule 0 07/2021 Active bind, (PHOSLO) 667 mg (169 MOUTH THREE TIMES DAILY mg calcium) capsule morphine (MS CONTIN) 15 mg Take 15 mg by mouth at 0 Active ER tablet bedtime. With 60 mg for total dose of 75 mg in the evening UNABLE TO FIND Med Name: Cannabis- 0 Active patient's reports this is newly prescribed for her and as of 03/11/22, has not yet started. Reports patient will have gummies as well as a tablet, have not picked these up yet. Strength of these is not known because they are new for her. acetaminophen (TYLENOL) 500 Take 2 tablets (1,000 0 03/18/2022 Active mg tablet mg total) by mouth every 6 (six) hours as needed for pain (Do not exceed 4000mg/day.). cyclobenzaprine (FLEXERIL) 5 Take 1 tablet (5 mg 8 tablet 0 0 03/18/2022 Active mg tablet total) by mouth 3 (three) times a day as needed for muscle spasms. Additional Information Patient not taking. Reported on 04/17/2022 oxyCODONE (ROXICODONE) 5 Take 1 tablet (5 8 tablet 0 03/25/20 22 Active mg immediate release mg total) by tabletIndications: Acute mouth 2 (two) Pain Exception times a day Indication: Acute Pain Exception. enoxaparin (LOVENOX) 100 Inject 0.9 mL (90 36 mL 0 022 Active mg/mL injection mg total) under the skin 2 (two) times a day for 18 days. Continue medication until follow up appointments. Do not stop. hydroxyurea (HYDREA) 500 TAKE 1 CAPSULE BY 180 capsule 1 04/16 Active mg capsule MOUTH TWICE DAILY. TAKE AT THE SAME TIME EACH DAY hydroxyurea (HYDREA) 500 Take 1 capsule 60 capsule 3 2 mg capsule (500 mg total) by 2021 mouth 2 (two) times a day. Take at the same time each day. Active Problems Problem Noted Date Anemia Of Chronic Disease 03/12/2022 Chronic Pain Syndrome 03/12/2022 Dyspnea On Exertion 06/29/2021 Overview: Added automatically from request for elier smart [id number] Hypertension Pulmonary 06/11/2021 Hyperuricemia 06/08/2021 Edema 06/08/2021 Elevated Creatinine 06/08/2021 Gastroesophageal Reflux Disease 06/08/2021 Splenomegaly Acquired 06/06/2021 Overview: Added automatically from request for elier smart [id number] Pancytopenia 06/06/2021 Fluid Overload Unspecified 06/06/2021 Anxiety 06/06/2021 Insomnia 06/06/2021 Tachycardia Sinus 06/06/2021 Hyperphosphatemia 06/06/2021 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 04/26/2022 Specialty Pharmacy Pharmacy Abhinav Arriaga, PharmZahraaD., R.Ph. 04/23/2022 Clinical Hematology Xuan, External lab Communication Janusz, results M.B.B.S. 04/19/2022 Office Visit Hepatobiliary and Roxane Castellon Myelofib rosis Primary (HCC) (Primary Dx); Pancreas Surgery E, JACKSPOOLER, Splenomegal y Acquired; C.N.P., M.S.N. Splenectomy T otal Status Post 04/19/2022 Hospital Encounter Radiology Ras Aleyda Splenom egaly Acquired; R, P.A.-C., Myelofibrosis P rimary (HCC) M.S. 04/19/2022 Hospital Encounter Laboratory Medicine Annamaria De Luna plenomegaly Acquired; Dewayne Dillon Myelofibrosis P rimary (HCC) 04/18/2022 Orders Only Hematology Isidro Zamarripa Myelofibrosis Murphy Joel, B.Ch. Primary (HCC) (Primary Dx) 04/18/2022 Documentation Hematology Isidro Zamarripa M.B., B.Ch. 04/17/2022 Office Visit Hematology Ganwing, Myelofibrosis Nasjonatahn, Primary (HCC) MurphyB.S. (Primary Dx) 04/15/2022 Refill Hematology Xuan, Med Refill Murphy BoudreauxB.S. 04/15/2022 Orders Only Hematology Gangat, Murphy BoudreauxB.S. 04/15/2022 Clinical Hematology Gangat, Lab results Communication Murphy BoudreauxB.S. 04/15/2022 Clinical Hematology Gangat, Lab results and Communication Janusz, care plan Jonathon.S. 04/08/2022 Clinical Hematology [place], External Lab En try Communication Jonathon Boudreaux.S. 04/02/2022 Clinical Hematology Xuan, External Lab En try Communication Jonathon Boudreaux.S. 04/01/2022 Clinical Hepatobiliary and Grotz, Hema Lovenox Communication Pancreas Surgery Dewayne Britoti on 03/25/2022 Clinical Hematology [place], External Lab En try Communication Murphy BoudreauxB.S. 03/25/2022 Clinical Hepatobiliary and Grotz, Hema Communication Pancreas Surgery Dewayne Brtio 03/22/2022 Clinical Pharmacy Michelle Cano Communication I. 03/21/2022 Clinical Hematology Gangat, Medication Communication Janusz, Questions Jonathon.S. 03/20/2022 Orders Only Hematology Annamaria De Luna Myelofibralejandro Dillon M.D. Primary (HCC) (Primary Dx) 03/20/2022 Orders Only Hepatobiliary and Grotz, Hema Pancreas Surgery Dewayne Brito 03/19/2022 Orders Only Hepatobiliary and Yoni, Pancreas Surgery Murphy DuranB.S. 03/19/2022 Clinical Hepatobiliary and Grotz, Hema Communication Pancreas Surgery Dewayne Brito 03/14/2022 Orders Only [facility] Internal Yao Tafoya Medicine M.D., M.S. 03/13/2022 Ancillary Procedure 03/13/2022 Anesthesia Event Aleyda Giron M.D. Licatino, Lauren K, M.D. 03/13/2022 Hospital Encounter Radiology Hema Rothmanleroy alfonzo Brito M.D. Acquired Octavio Rodrigez M.D. Breiland, Madison, M.D. 03/13/2022 Surgery Hema Rothman LAPAROSCOPIC H AND Dewayne Brito ASSISTED SPLENECTOMY. 03/13/2022 Hospital Encounter Hema Rothman Splenleroy mejía Acquired (Primary Dx); - Dewayne Brito Myelofibrosis P rimary (HCC) 03/18/2022 03/12/2022 Comprehensive Visit Anesthesiology Hema Rothman esthetic Medical Exam (Primary Dx); E MZahraaDZahara Splenomegaly Acquired; Fausto Gaona, Myelofibrosis Primary (HCC); MKathleen Pancytopenia (H CC); Hypertension Pu lmonary (HCC); Tachycardia Sin us; Regurgitation T ricuspid; Chronic Pain Sy ndrome; Abdominal Pain 03/12/2022 Comprehensive Visit Radiology Lio Munizleroy mejía Acquired (Primary Dx); Wanda R, Pancytopenia (H CC); JACKSPOOLER, C.N.P., Myelofibrosis Primary (HCC); M.S.N. Anemia Of Chron ic Disease 03/12/2022 Hospital Encounter Laboratory Medicine Hema Rothman plenomealfonzo Brito M.D. Acquired 03/07/2022 Clinical Admitting/Central Pre-visit Intake Communication Scheduling 03/04/2022 Clinical Hematology Xuan, External Lab En try Communication Murphy BoudreauxB.S. 03/04/2022 Documentation Hematology Xuan, Murphy BoudreauxB.S. 02/28/2022 Clinical Hepatobiliary and Hema Rothman Appointme nt Communication Pancreas Surgery Dewayne Brito 02/27/2022 Documentation Radiology Hindal, Procedure Amanda Joel R.N. 02/27/2022 Orders Only Radiology Hindal, Splenomegaly Ac quired (Primary Dx); Amanda Joel Myelofibrosis P rimary (HCC) R.N. 02/26/2022 Comprehensive Visit Hepatobiliary and Hema Rothman Sp lenomegaly Acquired (Primary Dx); Pancreas Surgery Dewayne Brito Myelofibros is Primary (HCC); Pancytopenia (H CC) 02/25/2022 Clinical Hematology Xuan, External Lab En try Communication Nasrin BoudreauxS. 02/22/2022 Clinical Hematology [facility], External Lab En try Communication Nasrin BoudreauxS. 02/22/2022 Documentation Hematology Isidro Zamarripa M.B., B.Ch. 02/21/2022 Clinical Hematology Stu, Rojas Loo M.D. 02/19/2022 Clinical Hematology [facility], External Lab En try Communication Nasrin BoudreauxS. 02/14/2022 Office Visit Hematology [facility], Myelofibrosis Naseema, Primary (HCC) NasrinSZahraa (Primary Dx) 02/13/2022 Hospital Encounter Radiology [facility], Myelofibr osis Naseema, Primary (HCC) NasrinS. 02/13/2022 Hospital Encounter Laboratory Medicine [facility], My elofibrosis Janusz, Primary (HCC) NasrinS. 02/11/2022 Clinical Hematology [facility], External Lab En try Communication Murphy BoudreauxBZahraaS. from Last 3 Months Immunizations Name Administration Dates Next Due Hib (PRP-OMP) (PedvaxHIB) 06/06/2021 Influenza, Seasonal, Injectable 05/22/2018 MCV4 (Menactra) 06/06/2021 MenB (BEXSERO) 06/06/2021 PCV13 06/06/2021 Td, (Adult) Unspecified 08/23/1998 influenza vaccine quad (FLUZONE/FLUARIX) (6 months and 06/06 older)(PF) Family History Medical History Relation Name Comments Heart Father Stroke Mother Relation Name Status Comments Father Mother Social History Tobacco Use Types Packs/Day Years Used Date Smoking Tobacco: Former Cigarettes 08 08 Quit : 2012 Smokeless Tobacco: Never Tobacco Cessation: Counseling Given: [...] at Date Recorded 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 Vital Signs Vital Sign Reading Time Taken Comments Blood Pressure 108/69 04/17/2022 10:56 AM CDT Pulse 88 04/17/2022 10:56 AM CDT Temperature 36.3 ??C (97.3 ??F) 04/17/2022 10:56 AM CDT Respiratory Rate 18 03/18/2022 10:31 AM CDT Oxygen Saturation 94% 03/18/2022 10:31 AM CDT Inhaled Oxygen Concentration - - Weight 89.8 kg (198 lb) 04/19/2022 12:19 PM CDT Height 170 cm (5' 6.93) 04/17/2022 10:56 AM CDT Body Mass Index 31.08 04/17/2022 10:56 AM CDT Plan of Treatment Health Maintenance Due Date Last Done Comments CT Colonography 1968 Cologuard 1968 Colonoscopy 1970 Colorectal Cancer Screening 1970 Controlled Substance Agreement 1970 Controlled Substance Monitoring 1968 FIT 1970 HIV Screening 1970 Hepatitis B Vaccines (1 of 3 - 1970 3-dose series) Hepatitis C Screening 1968 Mammogram 1968 Zoster Vaccines (1 of 2) 1987 DTaP,Tdap,and Td Vaccines (1 - 08/24/1998 08/23/1998 Tdap) Controlled Substance Monitoring 02/19/2019 (PHQ-9) Opioid Risk Assessment 02/19/2019 PEG assessment for Opioid therapy 02/19/2019 Cervical Cancer Screening 04/11/2019 04/11/2016 Lipid (Cholesterol) Screening 05/01/2021 05/01/2016 MenB Vaccine (2 of 4 - Increased 07/04/2021 06/06/2021 Risk Bexsero 2-dose series) Depression Screening (Annual 07/14/2021 PHQ-2) Meningococcal Vaccine (2 - Risk 08/01/2021 06/06/2021 2-dose series) Influenza Vaccine (#1) 2022 06/06/2021, 05/22/2018 COVID-19 Vaccine (5 - Booster for 04/29/2022 03/04/2022, , Moderna series) 12/05/2020, Additional history exists Pneumococcal vaccine (0-64 years) 06/06/2022 06/06/2021 (2 - PPSV23 if available, else PCV20) Generalized Anxiety (DUTCH-7) 07/24/2022 07/24/2021 Creatinine Level 04/19/2023 04/19/2022, 03/18/2022, 2022, Additional history exists Potassium Level 04/19/2023 04/19/2022, 03/18/2022, 2022, Additional history exists Sodium Level 04/19/2023 04/19/2022, 03/18/2022, 2022, Additional history exists Fasting Glucose for Diabetes 04/19/2025 04/19/2022, 022, Screening 2022, Additional history exists HIB Vaccines Completed 06/06/2021 Medical Devices Implanted Type Area Print Line Feeder Device Shelf Model / Identifier Expiration Serial / Date Lot Clp Hmscot Leora De La Torre - [id number] Hardware N/A: Planitax [id number] / Implanted: Qty: 1 on 03/13/2022 by Hema Rothman M.D. at [facility] e.g. Abdomen / pins/screws/ rods Procedures Procedure Name Priority Date/Time Associated Comments Diagnosis CT ABDOMEN PELVIS RAD - Routine 04/19/2022 1:04 Splenomegaly Result s for WITH IV CONTRAST (most inpatients PM CDT Acquired this procedure and all Myelofibrosis are in the outpatients) Primary (HCC) results section. MORPHOLOGY EVAL Routine 04/19/2022 9:47 Results f or (SPECIAL SMEAR) AM CDT this procedu re are in the results section. CBC NO CALL BACK, Routine 04/19/2022 9:47 Myelofibrosis Result s for REFLEX T/S AM CDT Primary (HCC) this procedure are in the results section. COMPREHENSIVE Routine 04/19/2022 9:47 Splenomegaly Results for METABOLIC PANEL, S/P AM CDT Acquired this procedure Myelofibrosis are in the Primary (HCC) results section. BILIRUBIN DIRECT, Routine 04/19/2022 9:47 Splenomegaly Results for S/P AM CDT Acquired this procedure Myelofibrosis are in the Primary (HCC) results section. PROTHROMBIN TIME Routine 04/19/2022 9:47 Splenomegaly Results for (PT), P AM CDT Acquired this procedure Myelofibrosis are in the Primary (HCC) results section. TYPE AND SCREEN Routine 04/19/2022 9:11 Results f or AM CDT this procedure are in the results section. BASIC METABOLIC Routine 03/18/2022 6:27 Results f or PANEL, S/P AM CDT this procedure are in the results section. CBC WITHOUT Routine 03/18/2022 6:27 Results for DIFFERENTIAL, B AM CDT this procedu re are in the results section. ADULT OXYGEN THERAPY Routine 2022 8:00 AM CDT BASIC METABOLIC Routine 2022 3:43 Results f or PANEL, S/P AM CDT this procedure are in the results section. CBC WITHOUT Routine 2022 3:43 Results for DIFFERENTIAL, B AM CDT this procedu re are in the results section. ADULT OXYGEN THERAPY Routine 03/16/2022 8:01 PM CDT HEPATIC FUNCTION Timed 03/16/2022 1:22 Results for PANEL, S PM CDT this procedure are in the results section. CBC WITHOUT Timed 03/16/2022 1:22 Results for DIFFERENTIAL, B PM CDT this procedu re are in the results section. TRANSFUSE RED BLOOD Routine 03/16/2022 9:33 CELLS AM CDT CBC WITHOUT Routine 03/16/2022 9:04 Results for DIFFERENTIAL, B AM CDT this procedu re are in the results section. ADULT OXYGEN THERAPY Routine 03/16/2022 8:01 AM CDT PREPARE RED BLOOD Routine 03/16/2022 7:26 CELLS AM CDT TYPE AND SCREEN STAT 03/16/2022 7:26 Results f or AM CDT this procedure are in the results section. THROMBOELASTOGRAPH, STAT 03/16/2022 7:24 Resul ts for KAOLIN + HEPARINASE, AM CDT this pr ocedure B are in the results section. TROPONIN T, 2H/6H, Timed 03/16/2022 2:54 Result s for 5TH GEN, P AM CDT this procedure are in the results section. PHOSPHORUS Timed 03/16/2022 2:54 Results for (INORGANIC), S AM CDT this procedur e are in the results section. MAGNESIUM, S Timed 03/16/2022 2:54 Results for AM CDT this procedure are in the results section. CBC WITHOUT Timed 03/16/2022 2:54 Results for DIFFERENTIAL, B AM CDT this procedu re are in the results section. BASIC METABOLIC Timed 03/16/2022 2:54 Results f or PANEL, S/P AM CDT this procedure are in the results section. DX CHEST PORTABLE 1 RAD - Emergent 03/16/2022 Result s for VIEW (Fastest; for 12:21 AM CDT this procedure the most are in the critically ill results patients) section. SPSMA RESULT STAT 03/15/2022 Results for 11:42 PM CDT this procedure are in the results section. CBC WITH STAT 03/15/2022 Results for DIFFERENTIAL, B 11:42 PM CDT this procedu re are in the results section. TROPONIN T, STAT 03/15/2022 Results for BASELINE, 5TH GEN, P 11:42 PM CDT this pr ocedure are in the results section. ECG STAT 03/15/2022 Results for 11:26 PM CDT this procedure are in the results section. ADULT OXYGEN THERAPY Routine 03/15/2022 8:01 PM CDT CBC WITHOUT Timed 03/15/2022 6:55 Results for DIFFERENTIAL, B PM CDT this procedu re are in the results section. CBC WITHOUT Timed 03/15/2022 8:19 Results for DIFFERENTIAL, B AM CDT this procedu re are in the results section. ADULT OXYGEN THERAPY Routine 03/15/2022 8:01 AM CDT BASIC METABOLIC Timed 03/15/2022 4:33 Results f or PANEL, S/P AM CDT this procedure are in the results section. CBC WITHOUT Timed 03/15/2022 4:33 Results for DIFFERENTIAL, B AM CDT this procedu re are in the results section. NT-PRO B-TYPE Routine 03/15/2022 4:33 Results for NATRIURETIC PEPTIDE AM CDT this pro cedure (BNP), S are in the results section. HEPARIN LEVEL Routine 03/15/2022 4:33 Results for ANTI-XA ASSAY, P AM CDT this proced ure are in the results section. THROMBOELASTOGRAPH, Timed 03/15/2022 4:32 Resul ts for KAOLIN, B AM CDT this procedure are in the results section. THROMBOELASTOGRAPH, STAT 03/15/2022 4:32 Resul ts for KAOLIN + HEPARINASE, AM CDT this pr ocedure B are in the results section. ADULT OXYGEN THERAPY Routine 03/14/2022 8:01 PM CDT CBC WITHOUT Timed 03/14/2022 7:58 Results for DIFFERENTIAL, B PM CDT this procedu re are in the results section. ADULT OXYGEN THERAPY Routine 03/14/2022 6:25 PM CDT ADULT OXYGEN THERAPY Routine 03/14/2022 6:25 PM CDT TRANSFUSE RED BLOOD Routine 03/14/2022 1:37 CELLS PM CDT CBC WITHOUT Timed 03/14/2022 Results for DIFFERENTIAL, B 11:57 AM CDT this procedu re are in the results section. HEPARIN LEVEL Timed 03/14/2022 Results for ANTI-XA ASSAY, P 11:57 AM CDT this proced ure are in the results section. THROMBOELASTOGRAPH, STAT 03/14/2022 9:00 Resul ts for KAOLIN + HEPARINASE, AM CDT this pr ocedure B are in the results section. HEPARIN LEVEL Timed 03/14/2022 6:13 Results for ANTI-XA ASSAY, P AM CDT this proced ure are in the results section. CBC WITHOUT Timed 03/14/2022 6:13 Results for DIFFERENTIAL, B AM CDT this procedu re are in the results section. THROMBOELASTOGRAPH, Timed 03/14/2022 6:11 Resul ts for KAOLIN + HEPARINASE, AM CDT this pr ocedure B are in the results section. PREPARE PLATELETS STAT 03/13/2022 8:30 PM CDT PH BLOOD GAS STAT 03/13/2022 5:00 Results for PM CDT this procedure are in the results section. PHOSPHORUS STAT 03/13/2022 5:00 Results for (INORGANIC), S PM CDT this procedur e are in the results section. MAGNESIUM, S STAT 03/13/2022 5:00 Results for PM CDT this procedure are in the results section. CBC WITHOUT STAT 03/13/2022 5:00 Results for DIFFERENTIAL, B PM CDT this procedu re are in the results section. CALCIUM, IONIZED, STAT 03/13/2022 5:00 Results for S/B PM CDT this procedure are in the results section. BASIC METABOLIC STAT 03/13/2022 5:00 Results f or PANEL, S/P PM CDT this procedure are in the results section. THROMBOELASTOGRAPH, STAT 03/13/2022 4:57 Resul ts for KAOLIN, B PM CDT this procedure are in the results section. ADULT OXYGEN THERAPY Routine 03/13/2022 4:34 PM CDT ADULT OXYGEN THERAPY Routine 03/13/2022 4:34 PM CDT DX CHEST 1 VIEW RAD - Routine 03/13/2022 4:05 Results for (most inpatients PM CDT this proced ure and all are in the outpatients) results section. DX ABDOMEN 1 VIEW RAD - Routine 03/13/2022 4:05 Result s for (most inpatients PM CDT this proced ure and all are in the outpatients) results section. PATIENT STATUS STAT 03/13/2022 3:10 Results fo r PM CDT this procedure are in the results section. LACTATE, B STAT 03/13/2022 3:10 Results for PM CDT this procedure are in the results section. GLUCOSE, WHOLE BLOOD STAT 03/13/2022 3:10 Resu lts for PM CDT this procedure are in the results section. POTASSIUM, B STAT 03/13/2022 3:10 Results for PM CDT this procedure are in the results section. SODIUM, B STAT 03/13/2022 3:10 Results for PM CDT this procedure are in the results section. CALCIUM, IONIZED, STAT 03/13/2022 3:10 Results for S/B PM CDT this procedure are in the results section. ABG W/COOX STAT 03/13/2022 3:10 Results for PM CDT this procedure are in the results section. LEUKEMIA LYMPHOMA Routine 03/13/2022 2:41 Results for PHENOTYPE, TISSUE PM CDT this proce dure are in the results section. TRANSFUSE RED BLOOD Routine 03/13/2022 2:27 CELLS PM CDT PATIENT STATUS STAT 03/13/2022 2:13 Results fo r PM CDT this procedure are in the results section. CBC WITH STAT 03/13/2022 2:13 Results for DIFFERENTIAL, B PM CDT this procedu re are in the results section. GLUCOSE, WHOLE BLOOD STAT 03/13/2022 2:13 Resu lts for PM CDT this procedure are in the results section. POTASSIUM, B STAT 03/13/2022 2:13 Results for PM CDT this procedure are in the results section. SODIUM, B STAT 03/13/2022 2:13 Results for PM CDT this procedure are in the results section. CALCIUM, IONIZED, STAT 03/13/2022 2:13 Results for S/B PM CDT this procedure are in the results section. ABG W/COOX STAT 03/13/2022 2:13 Results for PM CDT this procedure are in the results section. THROMBOELASTOGRAPH, STAT 03/13/2022 2:12 Resul ts for KAOLIN, B PM CDT this procedure are in the results section. SURGICAL PATHOLOGY, Routine 03/13/2022 1:46 Splenomegaly Resul ts for FROZEN LAB PM CDT Acquired this procedure are in the results section. TRANSFUSE RED BLOOD Routine 03/13/2022 1:41 CELLS PM CDT TRANSFUSE RED BLOOD Routine 03/13/2022 1:35 CELLS PM CDT CALCIUM, IONIZED, STAT 03/13/2022 1:24 Results for S/B PM CDT this procedure are in the results section. ABG W/COOX STAT 03/13/2022 1:24 Results for PM CDT this procedure are in the results section. PATIENT STATUS STAT 03/13/2022 Results for 12:20 PM CDT this procedure are in the results section. ABG W/COOX STAT 03/13/2022 Results for 12:20 PM CDT this procedure are in the results section. TRANSFUSE PLATELETS Routine 03/13/2022 12:03 PM CDT PATIENT STATUS STAT 03/13/2022 Results for 11:13 AM CDT this procedure are in the results section. GLUCOSE, WHOLE BLOOD STAT 03/13/2022 Results for 11:13 AM CDT this procedure are in the results section. POTASSIUM, B STAT 03/13/2022 Results for 11:13 AM CDT this procedure are in the results section. SODIUM, B STAT 03/13/2022 Results for 11:13 AM CDT this procedure are in the results section. CALCIUM, IONIZED, STAT 03/13/2022 Results fo r S/B 11:13 AM CDT this procedure are in the results section. ABG W/COOX STAT 03/13/2022 Results for 11:13 AM CDT this procedure are in the results section. PROTHROMBIN TIME STAT 03/13/2022 Results for (PT), P 11:12 AM CDT this procedure are in the results section. FIBRINOGEN, P STAT 03/13/2022 Results for 11:12 AM CDT this procedure are in the results section. ACTIVATED PARTIAL STAT 03/13/2022 Results fo r THROMBOPLASTIN TIME 11:12 AM CDT this pro cedure (APTT), P are in the results section. ANE CENTRAL LINE Routine 03/13/2022 Results for GENERIC PERFORMABLE 11:12 AM CDT this pro cedure are in the results section. [facility] ANE INTRODUCER Routine 03/13/2022 Results f or ONLY 11:12 AM CDT this procedure are in the results section. [facility] ANE CENTRAL LINE Routine 03/13/2022 Results for TRIPLE LUMEN 11:12 AM CDT this procedure are in the results section. ME INS NON-BAY CVC Routine 03/13/2022 Results f or >5YR 11:12 AM CDT this procedure are in the results section. BLOOD (CROSSMATCHED) Routine 03/13/2022 ADMINISTRATION - FOR 11:03 AM CDT PATIENTS WEIGHING GREATER THAN 35 KG - (UNITS) ORDER SET TRIGGER TRANSFUSE RED BLOOD Routine 03/13/2022 CELLS 10:49 AM CDT ANE INVASIVE CATH Routine 03/13/2022 Results for WITH ULTRASOUND 10:35 AM CDT this procedu re are in the results section. [facility] ANE RAPID Routine 03/13/2022 Results for INFUSION CATHETER 10:35 AM CDT this proce dure INSERTION are in the results section. ME US GUIDE VASC Routine 03/13/2022 Results for ACCESS 10:35 AM CDT this procedure are in the results section. IR ARTERIAL RAD - Routine 03/13/2022 9:59 Splenomegaly Results for EMBOLIZATION (most inpatients AM CDT Acquired this proced ure and all are in the outpatients) results section. PATIENT STATUS STAT 03/13/2022 9:57 Results fo r AM CDT this procedure are in the results section. ABG W/COOX STAT 03/13/2022 9:57 Results for AM CDT this procedure are in the results section. LAPAROSCOPIC 03/13/2022 9:51 Splenomegaly SPLENECTOMY AM CDT Acquired TRANSFUSE RED BLOOD Routine 03/13/2022 9:17 CELLS AM CDT PATIENT STATUS STAT 03/13/2022 9:02 Results fo r AM CDT this procedure are in the results section. GLUCOSE, WHOLE BLOOD STAT 03/13/2022 9:02 Resu lts for AM CDT this procedure are in the results section. POTASSIUM, B STAT 03/13/2022 9:02 Results for AM CDT this procedure are in the results section. SODIUM, B STAT 03/13/2022 9:02 Results for AM CDT this procedure are in the results section. CALCIUM, IONIZED, STAT 03/13/2022 9:02 Results for S/B AM CDT this procedure are in the results section. ABG W/COOX STAT 03/13/2022 9:02 Results for AM CDT this procedure are in the results section. TRANSFUSE RED BLOOD Routine 03/13/2022 8:41 CELLS AM CDT LDA ANE ENDOTRACHEAL Routine 03/13/2022 8:39 Resu lts for AIRWAY AM CDT this procedure are in the results section. ANESTHESIOLOGY IMAGE Routine 03/13/2022 8:30 Resu lts for EXAM AM CDT this procedure are in the results section. SARS CORONAVIRUS 2, Routine 03/12/2022 9:37 Splenomegaly Resul ts for MOLECULAR DETECTION, AM CDT Acquired this pr ocedure PCR, VARIES are in the results section. PREPARE RED BLOOD Routine 03/12/2022 8:55 CELLS AM CDT PREPARE RED BLOOD Routine 03/12/2022 8:55 CELLS AM CDT TYPE AND SCREEN Routine 03/12/2022 8:55 Splenomegaly Results f or AM CDT Acquired this procedure are in the results section. CBC WITHOUT Routine 03/12/2022 8:55 Splenomegaly Results for DIFFERENTIAL, B AM CDT Acquired this procedu re are in the results section. US SPLEEN RAD - Routine 02/13/2022 4:46 Myelofibrosis Results fo r (most inpatients PM CDT Primary (HCC) this proce dure and all are in the outpatients) results section. SPSMA RESULT Routine 02/13/2022 4:01 Myelofibrosis Results for PM CDT Primary (HCC) this procedure are in the results section. LACTATE Routine 02/13/2022 4:01 Myelofibrosis Results for DEHYDROGENASE (LD), PM CDT Primary (HCC) this pr ocedure S are in the results section. COMPREHENSIVE Routine 02/13/2022 4:01 Myelofibrosis Results fo r METABOLIC PANEL, S/P PM CDT Primary (HCC) this p rocedure are in the results section. CBC WITH Routine 02/13/2022 4:01 Myelofibrosis Results for DIFFERENTIAL, B PM CDT Primary (HCC) this proced ure are in the results section. from Last [address] Abdomen Pelvis with IV Contrast [...] IV CONTRAST COMPARISON: ??Comparison is made to [facility] prior studies, including most recent CT from [...] chronic/nonacute findings, as d etailed. Aleyda Mcginnis P.A.-C. M.S. IMG CT PROCEDURES (ABNORMAL) Morphology Evaluation (Special smear) (04/19/2022 9:47 AM CDT) [facility] Method Time Signature Neutrophilic Segs 70 50 [...] automated absolute halie trophil count. Reviewed by: Tech 04/19/2022 11:46 AM CDT DHP M Specimen Anatomical Collection Method Collection Time Receive d Time (Source) Location / / Volume Laterality Blood 04/19/2022 9:47 AM 2 CDT 10:10 AM CDT Annamaria De Luna M.D. LAB PATHOLOGY/CYTOLOGY ORDER NAGI Performing Organization Address City/State/ZIP Code Phon e Number [facility] - [address] [place], [place] [address] [place] [address] [facility] [address] [facility] (ABNORMAL) CBC no call back, reflex T/S HGB <8 (04/19/2022 9:47 AM CDT) [facility] Method Time Signature Hemoglobin 7.9 (L) [...] - 6.45 x10(9)/L 04/19/2022 11:45 AM CDT [facility] Comment: Auto-diff results not valid. Se e manual differential. Specimen Anatomical Collection Method Collection Time Receive d Time (Source) Location / / Volume Laterality Blood (Blood, 04/19/2022 9:47 AM 04/19/20 22 Venous) CDT 10:10 AM CDT Annamaria De Luna M.D. LAB BLOOD NON ADD-ON Performing Organization Address City/State/ZIP Code Phon e Number [facility] - [address] [place], [place] [address] [facility] [place] [place] [address] [facility] 200 [place] [address] [facility] 200 [facility] (ABNORMAL) Prothrombin Time (PT) (04/19/2022 9:47 AM CDT)Only the most recent of 2 resultswithin the time period is included. [facility] gist Method Time Signature Prothrombin 13.1 (H) [...] M.S. LAB BLOOD ADD-ON Performing Organization Address City/[facility] Phon e Number [facility] - [address] [place] [address] Bilirubin, Direct (04/19/2022 9:47 AM CDT) athologist Signature Bilirubin, <0.2 0.0 - 0.3 04/19/2022 DT Direct, S mg/dL 11:02 AM CDT Specimen Anatomical Collection Method Collection Time Receive d Time (Source) Location / / Volume Laterality Blood (Blood, 04/19/2022 9:47 AM 04/19/20 22 Venous) CDT 10:32 AM CDT Aleyda Mcginnis P.A.-C., M.S. LAB BLOOD ADD-ON Performing Organization Address City/[facility] Phon e Number [facility] - [address] (ABNORMAL) Comprehensive Metabolic Panel (04/19/2022 9:47 AM CDT)Only the most recent of2 resultswithin the time period is included. athologist Signature Potassium, S 5.4 (H) 3.6 [...] 04/19/2022 9:47 AM 04/19/20 22 Venous) CDT 10:32 AM CDT Aleyda Mcginnis P.A.-C. M.S. LAB BLOOD ADD-ON Performing Organization Address City/State/ZIP Code Phon e Number [facility] - [address] [place], [place] [address] [facility] [place] [address] [facility] 200 [facility] Type and Screen (with reflex Antibody ID) (04/19/2022 9:11 AM CDT)Only the most recent of3 resultswithin the time period is included. [facility] Method Time Signature ABORh A Pos Not 04/19/2022 ETRM applicable 12:55 PM CDT Antibody Negative Negative 04/19/2022 ETRM Screen 1:07 PM CDT Type & Screen 04/22/2022 04/19/2022 ETRM Expiration 23:59 12:55 PM CDT Testing [place] DEFAULT 04/19/2022 ETRM Location 12:13 PM CDT Specimen Anatomical Collection Method Collection Time Receive d Time (Source) Location / / Volume Laterality Blood 04/19/2022 9:11 AM 2 CDT 12:13 PM CDT Annamaria De Luna M.D. LAB BLOOD BANK TEST ORDERABL ES Performing Organization Address City/[facility] Code Phon e Number [facility] - [address] [place], [place] [address] [facility] [place] [address] [facility] 200 [facility] (ABNORMAL) CBC without Differential (03/18/2022 6:27 AM CDT)Only the most recent of13 resultswithin the time period is included. [facility] Method Time Signature Hemoglobin 8.3 (L) 11.6 - 03/18/2022 DTL 15.0 g/dL 6:43 AM CDT Hematocrit 28.0 (L) 35.5 - 03/18/2022 DTL 44.9 % 6:43 AM CDT Erythrocytes 3.00 (L) 3.92 - 03/18/2022 DTL 5.13 6:43 AM CDT x10(12)/L MCV 93.3 78.2 - 03/18/2022 DTL 97.9 fL 6:43 AM CDT RBC Distrib Width 19.6 (H) 12.2 - 03/18/2022 DTL 16.1 % 6:43 AM CDT Platelet Count 424 (H) 157 - 371 03/18/2022 DTL x10(9)/L 8:15 AM CDT Leukocytes 8.3 3.4 - 9.6 03/18/2022 DTL x10(9)/L 8:15 AM CDT Comment: Corrected for normoblasts. Specimen Anatomical Collection Method Collection Time Receive d Time (Source) Location / / Volume Laterality Blood (Blood, 03/18/2022 6:27 AM 03/18/20 6:34 Venous) CDT AM CDT Nazario Bailey APRN, C.N.P., D.N.P., M.S.N. LAB BLOOD AD D-ON Performing Organization Address City/State/ZIP Code Phon e Number [facility] - [address] [place] [address] [facility] [place] [address] [facility] 200 [facility] Basic Metabolic Panel (03/18/2022 6:27 AM CDT)Only the most recent of5 results within the time period is included. P athologist Signature Potassium, S 5.1 3.6 - 5.2 03/18/2022 DTL mmol/L 7:13 AM CDT Sodium, S 138 135 - 145 03/18/2022 DTL mmol/L 7:13 AM CDT Chloride, S 101 98 - 107 03/18/2022 DTL mmol/L 7:13 AM CDT Bicarbonate, S 28 22 - 29 03/18/2022 DTL mmol/L 7:13 AM CDT Anion Gap 9 7 - 15 03/18/2022 DTL 7:13 AM CDT BUN (Blood Urea 13 6 - 21 03/18/2022 DTL Nitrogen), S mg/dL 7:13 AM CDT Creatinine 0.79 0.59 - 03/18/2022 DTL 1.04 mg/dL 7:13 AM CDT Estimated GFR 89 >=60 03/18/2022 DTL (eGFR) mL/min/BSA 7:13 AM CDT Comment: Estimated GFR calculated using the 2020 CKD_EPI creatinine equation. Calcium, Total, S 9.0 8.6 - 10.0 mg/dL 03/18/2022 7:13 AM CDT DTL Glucose, S 98 70 - 140 mg/dL 03/18/2022 7:13 AM CDT D TL Specimen Anatomical Collection Method Collection Time Receive d Time (Source) Location / / Volume Laterality Blood (Blood, 03/18/2022 6:27 AM 03/18/20 6:50 Venous) CDT AM CDT Nazario Bailey APRN, C.N.P., D.N.P., M.S.N. LAB BLOOD AD D-ON Performing Organization Address City/State/ZIP Code Phon e Number [facility] - [address] [place] [address] [facility] [place] [address] Laboratories[facility] 200 [facility] (ABNORMAL) Hepatic Function Panel (03/16/2022 1:22 PM CDT) [facility] gist Method Time Signature Bilirubin, Total, S 0.4 <=1.2 03/16/2022 DTL mg/dL 2:21 PM CDT Bilirubin, Direct, S <0.2 0.0 - 0.3 03/16/2022 DTL mg/dL 2:21 PM CDT Aspartate 95 (H) 8 - 43 03/16/2022 DTL Aminotransferase U/L 2:21 PM CDT (AST), S Alanine 140 (H) 7 - 45 03/16/2022 DTL Aminotransferase U/L 2:21 PM CDT (ALT), S Alkaline 144 (H) 35 - 104 03/16/2022 DTL Phosphatase, S U/L 2:21 PM CDT Albumin, S 3.3 (L) 3.5 - 5.0 03/16/2022 DTL g/dL 2:21 PM CDT Protein, Total, S 5.2 (L) 6.3 - 7.9 03/16/2022 DTL g/dL 2:21 PM CDT Specimen Anatomical Collection Method Collection Time Receive d Time (Source) Location / / Volume Laterality Blood (Blood, 03/16/2022 1:22 PM 03/16/20 2:01 Venous) CDT PM CDT Nazario Bailey APRN, C.N.P., JuanN.P., M.S.N. LAB BLOOD AD D-ON Performing Organization Address City/[facility]/ZIP Code Phon e Number [facility] - [address] [place], [place] [address] [facility] [place] [address] [facility] [address] Transfuse Red Blood Cells : (03/16/2022 1:04 PM CDT)Only the most recent of7 resultswithin the time period is included. Nazario Bailey APRN, C.N.P., Rafael.P., M.S.N. BLOOD TRANSF USION ORDERABLES (ABNORMAL) Thromboelastograph, Kaolin + Heparinase (03/16/2022 7:24 AM CDT)Only the most recent of4 resultswithin the time period is included. [facility] gist Method Time Signature R-Heparinase, 5.2 1.9 - 6.5 03/16/2022 M[facility] TEG min 9:37 AM CDT K-Heparinase, 0.8 (L) 0.9 - 1.8 03/16/2022 [facility] TEG min 9:37 AM CDT Angle-Heparina 79.7 (H) 65.5 - 77.1 03/16/2022 M[facility] se, TEG degrees 9:37 AM CDT MA-Heparinase, >90.0 (H) 58.2 - 76.2 03/16/2022 [facility] TEG mm 9:37 AM CDT [id number] 0.0 0.0 - 4.7 % 03/16/2022 M[facility] e, TEG 9:37 AM CDT [id number] 0.0 0.0 - 15.0 03/16/2022 M[facility] e, TEG % 9:37 AM CDT Specimen Anatomical Collection Method Collection Time Receive d Time (Source) Location / / Volume Laterality Blood (Blood, 03/16/2022 7:24 AM 03/16/20 7:29 Venous) CDT AM CDT Nazario Bailey APRN, C.N.P., Haydee.N.P., M.S.N. LAB BLOOD NO N ADD-ON Performing Organization Address City/State/ZIP Code Phon e Number [facility] - [address] [place], [place] [address] [facility] [place] [address] [facility] 200 [facility] (ABNORMAL) Troponin T, 2H/6H, 5th Gen (03/16/2022 2:54 AM CDT) Patholo gist Method Time Signature Troponin T, 2 14 (H) <=10 ng/L 03/16/2022 DTL hr, 5th gen 3:40 AM CDT 2H Delta 1 ng/L 03/16/2022 DTL 3:40 AM CDT 2H Delta Not Changing 03/16/2022 DTL Interp 3:40 AM CDT Troponin T, 6 CANCELED ng/L 03/16/2022 DTL hr, 5th gen 3:40 AM CDT Comment: Result canceled by the ancillar y. Specimen Anatomical Collection Method Collection Time Receive d Time (Source) Location / / Volume Laterality Blood (Blood, 03/16/2022 2:54 AM 03/16/20 3:17 Venous) CDT AM CDT Narrative [facility] - [facility] - 03/16/2022 3:40 AM CDT Specimen Information: Specimen ID: [id number] Specimen Type: Blood Specimen Collection Start Date: ??2:54 AM Specimen Received Date: 03/16/2022 ??3:17 AM Specimen ID: [id number] Specimen Type: Blood Mason Ardon LAB BLOOD TROPONIN Performing Organization Address City/State/ZIP Code Phon e Number [facility] - [address] [place] [address] [facility] [place] [address] [facility]-[address] Phosphorus Inorganic (03/16/2022 2:54 AM CDT)Only the most recent of2 results within the time period is included. P athologist Signature Phosphorus 3.0 2.5 - 4.5 03/16/2022 DTL (Inorganic), S mg/dL 3:40 AM CDT Specimen Anatomical Collection Method Collection Time Receive d Time (Source) Location / / Volume Laterality Blood (Blood, 03/16/2022 2:54 AM 03/16/20 22 3:16 Venous) CDT AM CDT Aleyda Mcginnis P.A.-C., M.S. LAB BLOOD ADD-ON Performing Organization Address City/[facility] Phon e Number [facility] - [address] [place] [address] [place] [address] (ABNORMAL) Magnesium (03/16/2022 2:54 AM CDT)Only the most recent of2 results within the time period is included. P athologist Signature Magnesium, S 2.7 (H) 1.7 - 2.3 03/16/2022 DTL mg/dL 3:40 AM CDT Specimen Anatomical Collection Method Collection Time Receive d Time (Source) Location / / Volume Laterality Blood (Blood, 03/16/2022 2:54 AM 03/16/20 22 3:16 Venous) CDT AM CDT Aleyda Mcginnis P.A.-C., M.S. LAB BLOOD ADD-ON Performing Organization Address City/[facility] Phon e Number [facility] - [id number] [place] [address] DX Chest Portable 1 View (03/16/2022 12:21 AM CDT) Anatomical Region Laterality Modality Chest, Thoracic RST LOS, Thoracic ARZ LOS, Thoracic N/A Digital Radiography FLA LOS Specimen (Source) Anatomical Collection Method Collection Time Re ceived Time Location / / Volume Laterality 03/16/2022 12:34 AM CDT Impressions 03/16/2022 7:02 AM CDT Since 03/13/2022, the right IJ venous sheath has been removed. Focal hazy opacity at the left basilar opacity, which could re present atelectasis and/or infection within the proper clinical setting. Stable enlargement of cardiac silhouette. No large pleural effusion or discernible pneumothorax. ?? Narrative 03/16/2022 7:02 AM CDT EXAM: ??DX CHEST PORTABLE 1 VIEW Procedure Note Stephen Sheth D.O. - 03/16/2022 EXAM: DX CHEST PORTABLE 1 VIEW IMPRESSION: Since 03/13/2022, the right IJ venous sh eath has been removed. Focal hazy opacity at the left basilar opacity, which could re present atelectasis and/or infection within the proper clinical setting. Stable enlargement of cardiac silhouette. No large pleural effusion or discernible pneumothorax. Mason AlexandraS. IMG DIAGNOSTIC IMAGING PROCE DURES (ABNORMAL) Troponin T, Baseline, 5th gen (03/15/2022 11:42 PM CDT) P athologist Signature Troponin T, 13 (H) <=10 ng/L 03/16/2022 DTL Baseline, 12:33 AM CDT gen Specimen Anatomical Collection Method Collection Time Receive d Time (Source) Location / / Volume Laterality Blood (Blood, 03/15/2022 11:42 03/16/2022 Venous) PM CDT 12:10 AM CDT Mason ArringtonB.S. LAB BLOOD TROPONIN Performing Organization Address City/State/ZIP Code Phon e Number [facility] - [address] [place], [place] [address] [facility] [place] [address] [facility] [address] (ABNORMAL) SPSMA Result (03/15/2022 11:42 PM CDT)Only the most recent of2 resultswithin the time period is included. Patholo gist Method Time Signature Neutrophilic Segs 85 (H) 50 - 75 % 03/16/2022 DHPM and Bands 2:01 AM CDT Monocytes 7 2 - 11 % 03/16/2022 DHPM 2:01 AM CDT Basophils 2 0 - 2 % 03/16/2022 DHPM 2:01 AM CDT Metamyelocytes 2 (H) <1 % 03/16/2022 DHPM 2:01 AM CDT Myelocytes 4 (H) <0.5 % 03/16/2022 DHPM 2:01 AM CDT Nucleated RBC 174 /100 WBC 03/16/2022 DHPM 2:01 AM CDT Manual Absolute 9.95 (H) 1.56 - 03/16/2022 [facility] Neutrophil Count 6.45 2:01 AM CDT x10(9)/L Comment: ----ADDITIONAL INFORMATION---- The manual absolute neutrophil count is derived from a manual differential count and therefore is not exactly comparable to the automated absolute halie trophil count. Specimen Anatomical Collection Method Collection Time Receive d Time (Source) Location / / Volume Laterality Blood 03/15/2022 11:42 03/15/2022 PM CDT 11:47 PM CDT Mason Ardon LAB BLOOD ADD-ON Performing Organization Address City/State/ZIP Code Phon e Number [facility] - [address] [place], [place] [address] [place] [address] [facility] [address] [facility] (ABNORMAL) CBC with Differential, Blood (03/15/2022 11:42 PM CDT)Only the most recent of3 resultswithin the time period is included. [facility] gist Method Time Signature Hemoglobin 6.8 (L) 11.6 - 03/15/2022 METH 15.0 g/dL 11:49 PM CDT Hematocrit 21.1 (L) 35.5 - 03/16/2022 METH 44.9 % 1:20 AM CDT Erythrocytes 2.33 (L) 3.92 - 03/16/2022 METH 5.13 1:20 AM CDT x10(12)/L MCV 90.6 78.2 - 03/16/2022 METH 97.9 fL 1:20 AM CDT RBC Distrib Width 20.0 (H) 12.2 - 03/15/2022 METH 16.1 % 11:49 PM CDT Platelet Count 238 157 - 371 03/15/2022 METH x10(9)/L 11:49 PM CDT Leukocytes 11.7 (H) 3.4 - 9.6 03/16/2022 PM x10(9)/L 2:01 AM CDT Comment: Corrected for normoblasts. Neutrophils SeeComment 1.56 - 6.45 x10(9)/L 03/16/2022 2:01 AM CDT [facility] Comment: Auto-diff results not valid. Se e manual differential. Specimen Anatomical Collection Method Collection Time Receive d Time (Source) Location / / Volume Laterality Blood (Blood, 03/15/2022 11:42 03/15/2022 Venous) PM CDT 11:47 PM CDT Mason AlexandraSZahraa LAB BLOOD ADD-ON Performing Organization Address City/State/ZIP Code Phon e Number [facility] - [address] [place], [place] [address] [facility] [place] [address] [facility] [address] [place] [address] [facility] [address] [facility] ECG 12 Lead (03/15/2022 11:26 PM CDT) P athologist Signature Ventricular Rate 82 BPM MUSE ECG/Min ME Interval 150 ms MUSE QRSD Interval 84 ms MUSE QT Interval 374 ms MUSE QTC Interval 436 ms MUSE P [place] 15 degrees MUSE R [place] 55 degrees MUSE T Wave [place] 62 degrees MUSE Specimen Anatomical Collection Method Collection Time Receive d Time (Source) Location / / Volume Laterality 03/15/2022 11:26 03/15/2022 PM CDT 11:31 PM CDT Impressions MUSE - 03/15/2022 11:31 PM CDT Normal sinus rhythm Minimal voltage criteria for LVH, may be normal variant T wave abnormality, consider anterior is chemia When compared with ECG of 06-JUN-2021 13 :11, T waves have changed Reviewed by REG Arguelles Narrative This result has an attachment that is no t available. Procedure Note Carol Chi M.D., Ph.D. - 03/15/2022Fo rmatting of this note might be different from the original. IMPRESSION: Normal sinus rhythm Minimal voltage criteria for LVH, may be normal variant T wave abnormality, consider anterior is chemia When compared with ECG of 06-JUN-2021 13 :11, T waves have changed Reviewed by REG Arguelles Mason AlexandraSZahraa ECG ORDERABLES Performing Organization Address City/State/ZIP Code Phon e Number MUSE MUSE NA (ABNORMAL) NT-Pro B-Type Natriuretic Peptide (BNP) (03/15/2022 4:33 AM CDT) P athologist Signature NT-Pro BNP 2573 (H) <=141 pg/mL 03/15/2022 DT 5:31 AM CDT Comment: NT-proBNP values less than 300 pg/mL hav e a 99% negative predictive value for excluding acute con gestive heart failure. A cutoff of 1200 pg/mL for sofya ents with an eGFR<60 yields a diagnostic sensitivity and spec ificity of 89% and 72% for acute congestive heart failure. A diagnostic NT-proBNP cutoff of 900 pg/mL has been s uggested in adults 50-75 years of age in the absence of rich al failure. Specimen Anatomical Collection Method Collection Time Receive d Time (Source) Location / / Volume Laterality Blood (Blood, 03/15/2022 4:33 AM 03/15/20 5:00 Venous) CDT AM CDT Vanda Gavin APRN.N.Khushbu., M.S.N. LAB BLOOD ADD-ON Performing Organization Address City/State/ZIP Code Phon e Number [facility] - [facility] [address] [place], [place] [address] [place] [address] [facility] [address] [facility] Heparin Anti-Xa Assay (03/15/2022 4:33 AM CDT)Only the most recent of3 results within the time period is included. P athologist Signature Heparin 0.12 IU/mL 03/15/2022 DT Anti-Xa, P 5:33 AM CDT Comment: UFH therapeutic range: ?? 0.30-0.70 IU/mL LMWH therapeutic range: 0.50-1.00 IU/mL 0.50-1.00 IU/mL for twice daily dosing ? ? 1.00-2.00 IU/mL for once daily dosing (sample obtained 4-6 hours following sub cutaneous injection) LMWH prophylactic range:0.10-0.30 IU/mL ----ADDITIONAL INFORMATION---- Heparin Anti-Xa is used to measure hepar in concentrations in patients receiving low molecular weig ht heparin (LMWH) or unfractionated heparin (UFH). Specimen Anatomical Collection Method Collection Time Receive d Time (Source) Location / / Volume Laterality Blood (Blood, 03/15/2022 4:33 AM 03/15/20 4:42 Venous) CDT AM CDT Hema Rothman M.D. LAB BLOOD NON ADD-ON Performing Organization Address City/[facility] Phon e Number [facility] - [address] DTL [address] (ABNORMAL) Thromboelastograph, Kaolin, Blood (03/15/2022 4:32 AM CDT)Only the most recent of3 resultswithin the time period is included. Patholo gist Method Time Signature R, Kaolin, TEG 7.2 4.0 - 9.0 03/15/2022 M[facility] min 7:04 AM CDT K, Kaolin, TEG 1.1 0.9 - 1.7 03/15/2022 M[facility] min 7:04 AM CDT Angle, Kaolin, 75.3 66.2 - 80.3 03/15/2022 M[facility] TEG degrees 7:04 AM CDT MA, Kaolin, 85.9 (H) 55.2 - 77.0 03/15/2022 METH TEG mm 7:04 AM CDT Ly30, Kaolin, 0.2 0.0 - 4.8 % 03/15/2022 METH TEG 7:04 AM CDT Specimen Anatomical Collection Method Collection Time Receive d Time (Source) Location / / Volume Laterality Blood (Blood, 03/15/2022 4:32 AM 03/15/20 4:35 Venous) CDT AM CDT Ramone Stone APRN, C.N.P., M.S.N. LAB BLOOD NON ADD-ON Performing Organization Address City/State/ZIP Code Phon e Number [facility] - [address] [place] [address] [facility] [place] [address] Laboratories-[address] (ABNORMAL) pH (03/13/2022 5:00 PM CDT) P athologist Signature pH 7.28 (L) 7.35 - 7.45 03/13/2022 STMA pH 5:13 PM CDT Specimen Anatomical Collection Method Collection Time Receive d Time (Source) Location / / Volume Laterality Blood 03/13/2022 5:00 PM 5:08 CDT PM CDT Leena Trujillo M.D. LAB HISTORICAL OR DERS Performing Organization Address [facility] Phon e Number [facility] - [address] Calcium, Ionized (03/13/2022 5:00 PM CDT)Only the most recent of6 resultswithin the time period is included. P athologist Signature Calcium, 5.23 4.65 - 5.30 03/13/[address] [facility] Ionized, B mg/dL 5:13 PM CDT Specimen Anatomical Collection Method Collection Time Receive d Time (Source) Location / / Volume Laterality Blood (Blood, 03/13/2022 5:00 PM 03/13/20 5:08 Venous) CDT PM CDT Leena Trujillo M.D. LAB BLOOD NON ADD -ON Performing Organization Address City/[facility] Code Phon e Number [facility] - [address] DX Chest 1 View (03/13/2022 4:05 PM CDT) Anatomical Region Laterality Modality Chest, Thoracic RST LOS, Thoracic ARZ LOS, Thoracic N/A Computed Radiography FLA LOS Specimen (Source) Anatomical Collection Method Collection Time Re ceived Time Location / / Volume Laterality 03/13/2022 4:07 PM CDT Impressions 03/13/2022 4:08 PM CDT Comparison with 02/16/2021. Right IJ sheath tip at the upper brachiocephalic vein. Mild medial basilar atelectasis. No pneumotho rax or effusion. Narrative 03/13/2022 4:08 PM CDT EXAM: ??DX CHEST 1 VIEW Procedure Note Fei Angeles M.D. - 03/13/2022Formatt ing of this note might be different from the original. EXAM: DX CHEST 1 VIEW IMPRESSION: Comparison with 02/16/2021. Right IJ she ath tip at the upper brachiocephalic vein. Mild medial basilar atelectasis. No pneumotho rax or effusion. Hema Rothman M.D. IMG DIAGNOSTIC IMAGING PROCE DURES DX Abdomen 1 View (03/13/2022 4:05 PM CDT) Anatomical Region Laterality Modality Abdomen, Abdominal RST LOS, Abdominal ARZ LOS, N/A Computed Radiography Abdominal FLA LOS Specimen (Source) Anatomical Collection Method Collection Time Re ceived Time Location / / Volume Laterality 03/13/2022 4:08 PM CDT Impressions 03/13/2022 4:09 PM CDT Negative for postoperative purposes. Narrative 03/13/2022 4:09 PM CDT EXAM: ??DX ABDOMEN 1 VIEW Procedure Note Fei Angeles M.D. - 03/13/2022Formatt ing of this note might be different from the original. EXAM: DX ABDOMEN 1 VIEW IMPRESSION: Negative for postoperative purposes. Hema Rothman M.D. IMG DIAGNOSTIC IMAGING PROCE DURES (ABNORMAL) Lactate, B (03/13/2022 3:10 PM CDT) athologist Signature Lactate, B 3.0 (H) 0.5 - 2.2 03/13/2022 [facility] mmol/L 3:12 PM CDT Specimen Anatomical Collection Method Collection Time Receive d Time (Source) Location / / Volume Laterality Blood (Blood, 03/13/2022 3:10 PM 03/13/20 3:10 Venous) CDT PM CDT Aleyda Giron M.D. LAB BLOOD NON ADD-ON Performing Organization Address City/State/ZIP Code Phon e Number [facility] - [address] [place], [place] [address] [place] [address] [facility] [address] Patient Status (03/13/2022 3:10 PM CDT)Only the most recent of6 resultswithin the time period is included. athologist Signature Temperature 36.7 37.0 deg C 03/13/2022 [facility] 3:10 PM CDT FIO2 0.36 0.21=AIR 03/13/2022 [facility] 3:10 PM CDT Specimen Anatomical Collection Method Collection Time Receive d Time (Source) Location / / Volume Laterality Blood 03/13/2022 3:10 PM 2 3:10 CDT PM CDT Cristian Ingram APRN, CRNA LAB BLOOD NON ADD-ON Performing Organization Address [facility] Phon e Number [facility] - [address] [place], [place] [address] [facility] [address] Sodium, B (03/13/2022 3:10 PM CDT)Only the most recent of4 resultswithin the time period is included. P athologist Signature Sodium, B 136 135 - 145 03/13/2022 3:12 [facility] mmol/L PM CDT Specimen Anatomical Collection Method Collection Time Receive d Time (Source) Location / / Volume Laterality Blood (Blood, 03/13/2022 3:10 PM 03/13/20 3:10 Arterial Line) CDT PM CDT Aleyda Giron M.D. LAB BLOOD NON ADD-ON Performing Organization Address City/[facility] Phon e Number [facility] - [address] (ABNORMAL) Blood Gas with Coox, Arterial (03/13/2022 3:10 PM CDT)Only the most recent of7 resultswithin the time period is included. P athologist Signature pO2 107 83 - 108 03/13/2022 [facility] mm Hg 3:12 PM CDT pCO2 43 32 - 45 mm 03/13/2022 [facility] Hg 3:12 PM CDT pH 7.31 (L) 7.35 - 03/13/2022 [facility] 7.45 pH 3:12 PM CDT Base Excess -5 (L) -2 - 3 03/13/2022 [facility] mmol/L 3:12 PM CDT HCO3 22 22 - 26 03/13/2022 [facility] mmol/L 3:12 PM CDT Hemoglobin, B 8.2 (L) 11.6 - 03/13/2022 [facility] 15.0 g/dL 3:12 PM CDT O2Hb 95.9 94.0 - 03/13/2022 [facility] 98.0 % 3:12 PM CDT COHb 3.1 (H) <3.0 % 03/13/2022 [facility] 3:12 PM CDT MetHb <1.0 <1.5 % 03/13/2022 [facility] 3:12 PM CDT CtO2 11.3 (L) 18.0 - 03/13/2022 [facility] 21.0 vol % 3:12 PM CDT Specimen Anatomical Collection Method Collection Time Receive d Time (Source) Location / / Volume Laterality Blood (Blood, 03/13/2022 3:10 PM 03/13/20 22 3:10 Arterial Line) CDT PM CDT Aleyda Giron M.D. LAB BLOOD NON ADD-ON Performing Organization Address [facility] Phon e Number [facility] - [address] [place], [place] [address] [place], [place] [id number] [place] [address] Potassium, Blood (03/13/2022 3:10 PM CDT)Only the most recent of4 resultswithin the time period is included. P athologist Signature Potassium, B 4.5 3.6 - 5.2 03/13/2022 [facility] mmol/L 3:12 PM CDT Specimen Anatomical Collection Method Collection Time Receive d Time (Source) Location / / Volume Laterality Blood (Blood, 03/13/2022 3:10 PM 03/13/20 22 3:10 Arterial Line) CDT PM CDT Aleyda Giron M.D. LAB BLOOD NON ADD-ON Performing Organization Address City/[facility] Phon e Number [facility] - [address] [place], [place] [address] [place] [address] (ABNORMAL) Glucose, Whole Blood (03/13/2022 3:10 PM CDT)Only the most recent of4 resultswithin the time period is included. P athologist Signature Glucose 228 (H) 70 - 140 03/13/2022 [facility] mg/dL 3:12 PM CDT Specimen Anatomical Collection Method Collection Time Receive d Time (Source) Location / / Volume Laterality Blood (Blood, 03/13/2022 3:10 PM 03/13/20 3:10 Arterial Line) CDT PM CDT Aleyda Giron M.D. LAB BLOOD TROPONIN Performing Organization Address City/State/ZIP Code Phon e Number [facility] - [address] [place], [place] [address] [facility] [place] [address] [facility] [address] [facility] Leukemia/Lymphoma Immunophenotyping by Flow Cytometry, Tissue (03/13/2022 2:41 PM CDT) Component Value Ref Test Analysis Performed At [facility] gist Range Method Time Signature LLPT Result Performed 03/14/2022 DTL 3:31 PM CDT Final These results are considered preliminary and require complete integration 03/14/2022 DTL Diagnosis: with the current pathology c ase [id number] for final interpretation. ??The 3:31 PM CDT result should NOT be interpreted in isolation for the purp oses of diagnosis or clinical management. Spleen, specimen for flow cytometric analysis ([id number]): No monotypic B-cell population, phenotypically abnorma l T-cell population or blast cell population detected. Reviewed by: Sonia Boone M.D. Special Results: 03/14/2022 DTL Studies Blasts: ??Not increased by CD45/side scatter. 3:31 PM CDT B-cells: ??No monotypic; normal expression pattern of CD19, CD20, CD5, CD10, CD23, surface kappa and lambda. T-cells/NK-cells: ??No aberrant phenotype by CD3, CD5, CD7, and CD10. Viability: ??Acceptable Viable lymphocytes (7-AAD): ??85% Quality Assessment: ??Specimen received within validated ortiz delines. Microscopic Consult case. 03/14/2022 DTL Description Slide review not 3:31 PM CDT performed by flow technologist. Comment: ----ADDITIONAL INFORMATION---- This test was developed using an analyte specific reagent. Its performance characteristics were determined by [facility] in a manner consistent with CLIA requirements. This test has not bee n cleared or approved by the U.S. Food and Drug Administration. Specimen Anatomical Collection Method Collection Time Receive d Time (Source) Location / / Volume Laterality Tissue 03/13/2022 2:41 PM 2:41 CDT PM CDT Narrative This result has an attachment that is no t available. Faye Landeros M.D. LAB GENETIC TESTING Performing Organization Address City/State/ZIP Code Phon e Number [facility] - [address] [place], [place] [address] [facility] [place] [place] [address] [facility] [address] [facility] Surgical Pathology, Frozen Lab (03/13/2022 1:46 PM CDT) Component Value Ref Test Analysis Performed Pathologis t Range Method Time At Signature 03/19/2022 [facility] 4:43 PM CDT Report Sonia Boone M.D. 03/19/2022 [facility] electronically 4:43 PM signed by CDT I verify that I have examined all relevant slides/materials for the specimen(s) and rendered or confirmed the diagnosis. Gross A. ??Received fresh labeled spleen is a 5685 gram, 54 x 36 03/19/2022 [facility] Description x 8 cm aggregate of morcellated splenic tissue. ??The 4:43 PM capsule CDT is primarily smooth and unremarkable with focal involvement by underlying splenic infarcts. ??There are multiple (about 5) subcapsular infarcts identified ranging from 1.2 cm to 5.2 cm. ??There are also multiple (3) well-circumscribed, soft, red-brown masses ranging from 1.3 to 2.7 cm, possibly consistent with hemangiomas. ??The remaining cut surface is red-brown, soft, and homogenous. ??Hilar lymph nodes are not identified. ??Workers Compensation Claims Assistant tissue submitted for permanent sections. ??Grossed by BRIAN Junior (Ann Marie)([facility]) . Block Summary A Spleen 03/19/2022 [facility] A1 Possible hemangioma - 1 4:43 PM A2 Possible hemangioma - 2 CDT A3 Workers Compensation Claims Assistant infarcts - 1 A4 Workers Compensation Claims Assistant infarcts - 2 A5 Workers Compensation Claims Assistant infarcts - 3 A6 Additional sections of spleen - 1 A7 Additional sections of spleen - 2 A8 Additional sections of spleen - 3 A9 Additional sections of spleen - 4 A10 Additional sections of spleen - 5 Disclaimer This test was developed using an analyte specific reag ent. 03/19/2022 [facility] Its performance characteristics were determined by [facility] 4:43 PM [employer] in a manner consistent with CLIA requirements. This CDT test has not been cleared or approved by the U.S. Food and Drug Administration. Interpretation FINAL DIAGNOSIS 03/19/[address] [facility] 4:43 PM A. 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 CD61 stains extramedullary megakaryocytes with atypia. CD34 and CD117 show no increase in blasts. MPO stains granulocytes and ecadherin stains erythroid precursors. No vascular neoplasms are identified. Flow cytometry: Results: Blasts: ??Not increased by CD45/side scatter. B-cells: ??No monotypic; normal expression pattern of CD19, CD20, CD5, CD10, CD23, surface kappa and lambda. T-cells/NK-cells: ??No aberrant phenotype by CD3, CD5, CD7, and CD10. Viability: ??Acceptable Both flow cytometry and immunohistochemistry (IHC) have been performed in the current case because they are medically necessary to arrive at the correct diagnosis. ??Several antigens analyzed by flow cytometry have also been evaluated by IHC on the paraffin-embedded tissue sections in order to interpret such immunophenotypic data in the context of cellular distribution and tissue architecture. Specimen (Source) Anatomical Collection Method Collection Time Re ceived Time Location / / Volume Laterality Tissue (Spleen) 03/13/2022 1:46 PM CDT Comment: Please Weigh Narrative This result has an attachment that is no t available. Hema Rothman M.D. LAB SURG PATH ORDERABLES Performing Organization Address City/State/ZIP Code Phon e Number [facility] - [address] [place], [place] [address] [place] [address] [facility] [address] Transfuse Platelets : (03/13/2022 12:04 PM CDT) Dena Coon M.D. BLOOD TRANSFUSION ORDERABLES ME INS NON-BAY CVC >5YR, LDA ANE CENTRAL LINE TRIPLE LUMEN, LDA ANE INTRODUCER ONLY, MC ANE CENTRAL LINE GENERIC PERFORMABLE (03/13/2022 11:12 AM CDT) Narrative Dena Coon M.D. - 03/13/2022 11:1 2 AM CDT Isis Lux M.D. ? 03/13/2022 11:13 AM Invasive Catheter Date/Time: 03/13/2022 11:12 AM Performed by: Isis Lux M.D. Authorized by: Dena Coon M.D. Location: OR PROCEDURE DETAILS: Line type: central venous ?? Laterality: right Location: jugular internal Location details: new site ?? Patient position: Trendelenburg ?? Age group: adult Line Type: temporary (non-tunneled, non- implanted) Introducer: yes ?? Introducer size: 7 Fr Introducer insertion depth: 10 cm Catheter placed via introducer: clip in triple lumen ?? Lumen(s): double lumen Technique: ultrasound guided ?? Vessel transduced: yes ?? Monitored (venous): yes Number of attempts: 1 UNIVERSAL PROTOCOL All relevant documentation and testing w ere reviewed and available. All required blood products, implants, devic es and or special equipment were made available as applicable. Pre-proced ure verification was conducted and the correct site was marked if required. A fire risk assessment was done as applicable. The procedural time-out t o verify correct patient, correct side/site, and procedure was conducted p rior to performing the procedure and confirmed in a procedural pause. SEDATION / ANESTHESIA Anesthesia method: anesthesia POST-PROCEDURE DETAILS: Procedure completed successfully: yes ?? Line secured: secured with sutureless de vice Chlorhexidine disc around insertion site and under catheter with slight turn: yes ?? Complications: none ?? ATTESTATION STATEMENT A resident or fellow participated in the procedure, and the software security consultant was present for the entire procedure. Dena Coon M.D. PROCEDURE/MINOR SURGICAL ORD ERABLES APTT (Activated Partial Thromboplastin Time) (03/13/2022 11:12 AM CDT) P athologist Signature Activated 30 25 - 37 sec 03/13/2022 [facility] Partial 11:27 AM CDT Thrombopl Time, P Specimen Anatomical Collection Method Collection Time Receive d Time (Source) Location / / Volume Laterality Blood (Blood, 03/13/2022 11:12 03/13/2022 Arterial Line) AM CDT 11:12 AM CDT Dena Coon M.D. LAB BLOOD ADD-ON Performing Organization Address City/State/ZIP Code Phon e Number [facility] - [address] Fibrinogen (03/13/2022 11:12 AM CDT) P athologist Signature Fibrinogen, P 340 200 - 393 03/13/2022 [facility] mg/dL 11:25 AM CDT Specimen Anatomical Collection Method Collection Time Receive d Time (Source) Location / / Volume Laterality Blood (Blood, 03/13/2022 11:12 03/13/2022 Arterial Line) AM CDT 11:12 AM CDT Dena Coon M.D. LAB BLOOD ADD-ON Performing Organization Address City/[facility]/ZIP Code Phon e Number [facility] - [id number] [place] [address] ME US GUIDE VASC ACCESS, LDA ANE RAPID INFUSION CATHETER INSERTION, MC ANE INVASIVE CATH WITH ULTRASOUND (03/13/2022 10:35 AM CDT) Narrative Dena Coon M.D. - 03/13/2022 10:3 5 AM CDT Dena Coon M.D. ? 03/13/2022 ??4:36 PM Invasive Catheter Date/Time: 03/13/2022 10:35 AM Performed by: Dena Coon M.D. Authorized by: Dena Coon M.D. Location: OR PROCEDURE DETAILS: Line type: peripheral rapid infusion cat heter ?? Laterality: left Location: antecubital Location details: new site ?? Patient position: Trendelenburg ?? Age group: adult Catheter diameter: 8.5 Fr Site the catheter was advanced to (this is the intended location and does not need to be proven by radiologic exam ): peripheral venous circulation ?? Technique: ultrasound guided ?? Ultrasound guidance: image acquired and saved Ultrasound comment: ultrasound guidance used demonstrating vessel patency and cannulation of the vessel observed. ??Vessel transduced: no ?? Monitored (venous): yes Number of attempts: 1 UNIVERSAL PROTOCOL All relevant documentation and testing w ere reviewed and available. All required blood products, implants, devic es and or special equipment were made available as applicable. Pre-proced ure verification was conducted and the correct site was marked if required. A fire risk assessment was done as applicable. The procedural time-out t o verify correct patient, correct side/site, and procedure was conducted p rior to performing the procedure and confirmed in a procedural pause. PRE-PROCEDURE DETAILS: Appropriate hand hygiene, gown, cap, mas k, protective eyewear, sterile gloves, skin preparation, sterile drape, and strict aseptic technique were utilized as applicable for the procedure .: yes ?? Skin preparation: chlorhexidine ?? SEDATION / ANESTHESIA Anesthesia method: anesthesia POST-PROCEDURE DETAILS: Procedure completed successfully: yes ?? Line secured: sutured ??Chlorhexidine disc around insertion s ite and under catheter with slight turn: no ?? Complications: none ?? Dena Coon M.D. PROCEDURE/MINOR SURGICAL ORD ERABLES IR Arterial Embolization (03/13/2022 9:59 AM CDT) Anatomical Region Laterality Modality Body, Vascular Interventional RST LOS, Neuro N/A X-Ray Angiography Interventional RST LOS, Vascular Interventional ARZ LOS, Neuroradiology ARZ LOS, Vascular Interventional FLA LOS Specimen (Source) Anatomical Collection Method Collection Time Re ceived Time Location / / Volume Laterality 03/13/2022 10:05 AM CDT Impressions 03/13/2022 10:38 AM CDT Uncomplicated total splenic artery embolization. EP Narrative 03/13/2022 10:38 AM CDT EXAM: IR ARTERIAL EMBOLIZATION CLINICAL HISTORY: 51-year-old female wit h myelofibrosis and massive splenomegaly. Patient presents for splenic embolization prior to splene ctomy. TECHNIQUE: The right groin was prepped a nd draped in sterile fashion. Using ultrasound guidance to access vessel, patency was shown and aft er anesthetizing the skin with lidocaine the right common femoral artery was punctured successfull y. A permanent image was created and stored. A 5 Swazi Jasiel 1 sheath was placed. The celiac ar carolyne was selected with a Rand B catheter. Arteriogram demonstrating massive splenomegaly and d istortion of the celiac axis due to mass effect. The sheath was advanced into the splenic artery and a 4 Swazi glide catheter was advanced further into the splenic artery. After confirming satisfa ctory catheter position with a contrast injection, the spleen was embolized with Gelfoam. Repea t arteriogram after decreasing splenic perfusion demonstrated some contrast flowing towar ds the pancreas and stomach. Therefore, a microcatheter was advanced beyond the pancreatic branch an d spleen was further embolized to stasis with Gelfoam. Final arteriogram demonstrated no residual spl enic enhancement. Catheter and sheath removed. Hemostasis with Angio-Seal. No immediate complicati ons. PREPROCEDURE: Patient seen and evaluated . Allergies, pertinent medications, and history reviewed. Discussed risks, benefits, alternatives for procedure, and obtained informed consent. Patient understands information and questions an swered. Immediately prior to starting the procedure, in the presence of the assisting personnel, pro cedural pause was conducted to verify correct patient identity and verification of procedure t o be performed, and as applicable, correct side and site, correct patient position, availability o f implants, special equipment, or special requirements, and all image and specimen identification da ta. The roles and responsibilities of care team members, residents, and fellows were discussed. S edation provided by Anesthesiology. Procedure Note Octavio Rodrigez M.D. - 03/13/2022For matting of this note might be different from the original. EXAM: IR ARTERIAL EMBOLIZATION CLINICAL HISTORY: 51-year-old female wit h myelofibrosis and massive splenomegaly. Patient presents for splenic embolization prior to splene ctomy. TECHNIQUE: The right groin was prepped a nd draped in sterile fashion. Using ultrasound guidance to access vessel, patency was shown and aft er anesthetizing the skin with lidocaine the right common femoral artery was punctured successfull y. A permanent image was created and stored. A 5 Swazi Jasiel 1 sheath was placed. The celiac ar carolyne was selected with a Arnd B catheter. Arteriogram demonstrating massive splenomegaly and d istortion of the celiac axis due to mass effect. The sheath was advanced into the splenic artery and a 4 Swazi glide catheter was advanced further into the splenic artery. After confirming satisfa ctory catheter position with a contrast injection, the spleen was embolized with Gelfoam. Repea t arteriogram after decreasing splenic perfusion demonstrated some contrast flowing towar ds the pancreas and stomach. Therefore, a microcatheter was advanced beyond the pancreatic branch an d spleen was further embolized to stasis with Gelfoam. Final arteriogram demonstrated no residual spl enic enhancement. Catheter and sheath removed. Hemostasis with Angio-Seal. No immediate complicati ons. PREPROCEDURE: Patient seen and evaluated . Allergies, pertinent medications, and history reviewed. Discussed risks, benefits, alternatives for procedure, and obtained informed consent. Patient understands information and questions an swered. Immediately prior to starting the procedure, in the presence of the assisting personnel, pro cedural pause was conducted to verify correct patient identity and verification of procedure t o be performed, and as applicable, correct side and site, correct patient position, availability o f implants, special equipment, or special requirements, and all image and specimen identification da ta. The roles and responsibilities of care team members, residents, and fellows were discussed. S edation provided by Anesthesiology. IMPRESSION: Uncomplicated total splenic artery embol ization. EP Hema CAMPOS IR PROCEDURES LDA ANE ENDOTRACHEAL AIRWAY (03/13/2022 8:39 AM CDT) Narrative Meghan Ng APRN, CRNA - 03/13/2022 8:39 AM CDT Meghan Ng APRN, CRNA ? 03/13/2022 ??9:05 AM Airway Date/Time: 03/13/2022 8:39 AM Performed by: Meghan Ng APRN, CRN A Authorized by: Meghan gN APRN, CR NA Patient location during procedure: OR / Procedure Area PROCEDURE DETAILS: Mask difficulty assessment: easy mask Final airway type: video laryngoscope Laryngeal Manipulation: no ?? Final best view of glottic structures - Cormack/Lehane Score: grade 1 ETT location: oral VL device: glide scope Gordon scope blade size: 3 Adult tube size: 7 Adult ETT distance at teeth/gum: 21 Oral tube type: standard ETT Cuffed: yes Number of attempt to successful placemen t: 1 Airway confirmation: bilateral breath so unds, positive ETCO2 and bilateral chest rise Other previous techniques attempted: non e PRE PROCEDURE DETAILS: Pre evaluation for airway management: pr ocedure Urgency: elective Preop assessment of probable difficulty: questionable / suspicious difficult airway Preoxygenation: bag valve mask SEDATION / ANESTHESIA Anesthesia method: anesthesia POST PROCEDURE DETAILS: ? Procedure outcome: successful ?? Airway event: no complications Meghan Carson Berenice JACKSPOOLER, REELER OPERATOR ANESTHESIA ORDERABLES Non-Radiology Image-Anesthesiology Image Exam (03/13/2022 8:30 AM CDT) Specimen (Source) Anatomical Location Collection Method / Collectio n Time Received Time / Laterality Volume Narrative [facility] - 03/14/2022 7:48 AM CDT This order has been created and auto-finalized to support the import of images acquired without order. The clini hortencia documentation to support these images can be found on the encounter jacquelyn t produced images. Provider Not In System IMG NON RAD IMAGING PROCEDUR ES Performing Organization Address City/State/ZIP Code Phon e Number [facility] NA SARS Coronavirus 2, Molecular Detection, PCR, Varies Asymptomatic (03/12/2022 9:37 AM CDT) [facility] Method Time Signature COVID-19, Swab, 03/12/2022 DTL PCR, Source Nasopharynx 3:01 PM CDT COVID-19, Undetected Undetected 03/12/2022 DTL PCR, Result 3:01 PM CDT Comment: SARS-CoV-2 RNA absent. This result does not rule out COVID-19 in the patient, as the sensitivity of the test depends o n the timing of the specimen collection and quality of the specimen. Result should be correlated with patient's history and clinical presentat ion. ----ADDITIONAL INFORMATION---- This RT-PCR test using the [employer] SARS-Co V-2 Assay ( [employer].) performed on the [employer] Two Module System has received Emergency Use Authorization (EUA) by the U.S. Food and Drug Administration, and is modified from the catering operations manager's instructions with a bridging study. Performance characteristics were verifie d by [facility] in a manner consistent with CLIA requirements. Visit the CDC website: https://www.cdc.g ov/coronavirus/ for the most recent guidelines on Eugene virus testing. Fact Sheet for Healthcare Providers: https://www.fda.gov/media/426277/downloa d Fact Sheet for Patients: https://www.fda.gov/media/029050/downloa d Specimen Anatomical Collection Method Collection Time Receive d Time (Source) Location / / Volume Laterality Varies 03/12/2022 9:37 AM 2 (Nasopharynx) CDT 10:32 AM CDT Hema Rothman M.D. LAB MICROBIOLOGY - GENERAL O RDERABLES Performing Organization Address City/State/ZIP Code Phon e Number [facility] - [address] [place], [place] [address] [facility] [place] [address] [facility] [address] [facility] US Spleen (02/13/2022 4:46 PM CDT) Anatomical Region Laterality Modality Abdomen, Ultrasound RST LOS, Ultrasound ARZ LOS, Ultrasound FLA N/A Ultrasound LOS Specimen (Source) Anatomical Collection Method Collection Time Re ceived Time Location / / Volume Laterality 02/13/2022 4:47 PM CDT Impressions 02/13/2022 4:50 PM CDT Marked splenomegaly measures similar to prior exam. 2 tiny echogenic lesions likely reflect hemangiomas. Narrative 02/13/2022 4:50 PM CDT EXAM: US SPLEEN COMPARISON: Ultrasound 10/24/2021 FINDINGS: Spleen: Splenomegaly. ??Spleen length: A pproximately 30.0 cm. 1 cm and 0.6 cm echogenic lesions likely reflect hemangiomas. Procedure Note Iona High M.D. - 02/13/2022Form atting of this note might be different from the original. EXAM: US SPLEEN COMPARISON: Ultrasound 10/24/2021 FINDINGS: Spleen: Splenomegaly. Spleen length: Eugenia roximately 30.0 cm. 1 cm and 0.6 cm echogenic lesions likely reflect hemangiomas. IMPRESSION: Marked splenomegaly measures similar to prior exam. 2 tiny echogenic lesions likely reflect hemangiomas. Janusz Ardon IMTom US PROCEDURES (ABNORMAL) LD (Lactate Dehydrogenase) (02/13/2022 4:01 PM CDT) [facility] Method Time Signature Lactate 676 (H) 122 - 222 02/13/2022 DTL Dehydrogenase U/L 5:26 PM CDT (LD), S Specimen Anatomical Collection Method Collection Time Receive d Time (Source) Location / / Volume Laterality Blood (Blood, 02/13/2022 4:01 PM 02/14/20 4:30 Venous) CDT PM CDT Janusz Ardon LAB BLOOD NON ADD-ON Performing Organization Address City/State/ZIP Code Phon e Number [facility] - [address] [place], [place] [address] [facility] [place] [address] [facility] [address] from Last 3 Months Insurance Payer Benefit Plan Subscriber ID Effective Phone Address Typ e / Group Dates MEDICARE MEDICARE A [id number] 2020-Prese [address] [place] [address] UCARE UCARE CONNECT [id number] 2021-Prese [phone] [address] Medicaid HMO nt 25 [place] [address] (Home) [address] (Work) [phone] Advance Directives For more information, please contact: [phone] Latest Code Status on File Code Status Date Activated Date Inactivated Comments Full Code 03/13/2022 8:14 PM 03/18/2022 12:42 PM Question Answer Comments Full Code: Discussed Code Status History Code Status Date Activated Date Inactivated Comments Full Code 06/06/2021 1:51 PM 06/11/2021 6:52 PM Question Answer Comments Full Code: Discussed Care Teams Supervisor Residential Relationship Specialty Start Date End Date Elsewhere, Pcp PCP - General 11/04/21
--- OUTSIDE RECORDS SUMMARY | 2022-05-02 12:01 | XMS_ITS | Encounter Summary ---
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 - 04/23/2022 3:56 PM CDT I spoke with her . She will continue Hydrea 500mg BID, and I let him know Dr. Govea said shecan change lab draws to every two weeks now. He had no further questions and was agreeable to the plan. Telephone Encounter - Mary Ann Shaver R.N. - 04/23/2022 11:22 AM CDT Primary MF Splenectomy 03/13/2022 Hydrea 500 mg BID. Hgb looks great! Cintia Carr Telephone Encounter - Yelena Liang - 04/23/2022 11:15 AM CDT Outside labs collected on April 23, 2022, have been received. The fax has been scanned into the patient record via [employer], and the CBC results are as noted below. Hemoglobin: 8.5 Hematocrit: 29.3 WBC: 23.57 ANC: 9.40 Platelets: 1121 Please note: Are there additional labs reported on the outside report? No documented in 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 Care Teams Messenger Floorperson Relationship Specialty Start Date End Date Elsewhere, Pcp PCP - General 11/04/21 documented as of this encounter
--- OUTSIDE RECORDS SUMMARY | 2022-05-02 12:01 | XMS_ITS | Encounter Summary ---
:1970 Author Organization [facility] Address [address] [place] [address] Care Team Providers Name Role Phone Elsewhere, Pcp Primary Care Provider Unavailable Reason for Visit Outpatient (Routine) - Closed Specialty Diagnoses / Procedures Referred By Contact Refer red To Contact General Surgery Aleyda Mcginnis P.A.-C., [facility] 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 - 04/19/2022 1:30 PM CDT SUBJECTIVE Ms. Dobbs is a 52 y.o. female who is status post laparoscopic hand assisted splenectomy for myelofibrosis on 03/13/[address] Rothman. Her postoperative course was uncomplicated. She currently denies fever, chills. She is tolerating oral intake. She reports no nausea and no vomiting. Stools are regular. Drain: None Antibiotics: None Feeding tube: None Pancreatic enzymes/Imodium: None Anticoagulation: Therapeutic Lovenox 90 mg twice daily as recommended per hematology service for a total of 6 weeks. OBJECTIVE Wt Readings from Last 3 Encounters: 04/19/22 89.8 kg 04/17/22 90.1 kg 03/17/22 92.2 kg Pain is well controlled. Pain education was given. PHYSICAL EXAMINATION General: Patient is alert, non-toxic appearing. Abdomen: Soft, appropriately tender. incisions are clean and intact. Labs reviewed. Hemoglobin 7.[address] reveals a 3.8 cm encapsulated but not rim enhancing fluid collection at the pancreatic tail bordering adjacent surgical material. All vasculature is patent. ASSESSMENT / PLAN #1 Myelofibrosis Primary (HCC) #2 Splenomegaly Acquired #3 Splenectomy Total Status Post Ms. Dobbs is doing well postoperatively. We discussed the expected post- operative course from this point and she expresses understanding. She was started on hydroxyurea for elevated platelets by Hematology. She will continue to follow-up with them for ongoing management of myelofibrosis. Anticoagulation: She is completed a 6 week course of therapeutic Lovenox as recommended by Hematology. The there is no evidence of thrombus on her CT scan today. Pathology report reviewed with the patient. She will follow up locally for any additional post splenectomy vaccines. All questions were answered to her satisfaction. She will contact us if any additional questions or concerns arise. documented in this encounter Plan of Treatment Not on filedocumented as of this encounter Visit Diagnoses Diagnosis Myelofibrosis Primary (HCC) - Primary Splenomegaly Acquired Splenectomy Total Status Post documented in this encounter Care Teams Sales Specialist Relationship Specialty Start Date End Date Elsewhere, Pcp PCP - General 11/04/21 documented as of this encounter
--- OUTSIDE RECORDS SUMMARY | 2022-05-02 12:01 | XMS_ITS | Encounter Summary ---
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
--- OUTSIDE RECORDS SUMMARY | 2022-05-02 12:02 | XMS_ITS | Encounter Summary ---
:1970 Author Organization [facility] Address [address] [place] [address] Care Team Providers Name Role Phone Elsewhere, Pcp Primary Care Provider Unavailable Encounter Details Date Type Department Care Team Description 03/14/2022 Orders Only Division of [facility] Yao Tafoya M.D., M.S. Internal Medicine, [place] [address] 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
--- OUTSIDE RECORDS SUMMARY | 2022-05-02 12:02 | XMS_ITS | Encounter Summary ---
:1970 Author Organization [facility] Address [address] [place] [id number] Care Team Providers Name Role Phone Elsewhere, Pcp Primary Care Provider Unavailable Reason for Referral Outpatient (Routine) - Closed Specialty Diagnoses / Procedures Referred By Contact Refer red To Contact Radiology Diagnoses Splenomegaly Acquired Hema Rothman M.D. [facility] Procedures IR Arterial Embolization [address] [place] [phone] Referral ID Status Reason Start Date Expiration Date Visits Requ ested Visits Authorized [id number] Closed 02/26/2022 02/26/2023 1 1 Reason for Visit Outpatient (Routine) - Closed Specialty Diagnoses / Procedures Referred By Contact Refer red To Contact Radiology Diagnoses Splenomegaly Acquired Hema Rothman M.D. [facility] Procedures IR Arterial Embolization [address] [place] [phone] Referral ID Status Reason Start Date Expiration Date Visits Requ ested Visits Authorized [id number] Closed 02/26/2022 02/26/2023 1 1 Encounter Details Date Type Department Care Team Description 03/13/2022 Hospital Encounter Department of Hema Rothman M.D. [address] [place] [phone] Splenomegaly Acquired Radiology in Octavio Rodrigez M.D. [address] [place] [phone] Juan Gay Madison, M.D. 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 LORazepam (ATIVAN) 0.5 Take 1-2 mg by 0 mg tablet mouth at bedtime as needed for anxiety or sleep. morphine (MS CONTIN) 15 Take 15 mg by mouth 0 mg ER tablet at bedtime. With 60 mg for total dose of 75 mg in the evening morphine (MS CONTIN) 60 Take 1 tablet by 0 2018 mg ER tablet mouth 2 (two) times a day. sennosides (SENOKOT) 8.6 Take 1 tablet by 0 03/07 mg tablet mouth at bedtime as needed for constipation. sodium-potassium Take 1 tablet by 0 bicarbonate mouth daily as (VASYL-SELTZER GOLD) needed (upset 344-1,050-1,000 mg stomach). tablet, effervescent torsemide (DEMADEX) 20 Take 1 tablet (20 30 tablet 1 2020 mg tablet mg total) by mouth daily. UNABLE TO FIND Med Name: Cannabis- 0 patient's reports this is newly prescribed for her and as of 03/11/22, has not yet started. Reports patient will have gummies as well as a tablet, have not picked these up yet. Strength of these is not known because they are new for her. enoxaparin (LOVENOX) 100 Inject 0.9 mL (90 60 mL 1 11/202103/19/2022 mg/mL injection mg total) under the skin 2 (two) times a day. Continue medication until follow up appointments. Do not stop. enoxaparin (LOVENOX) 300 Inject 0.9 mL (90 54 mL 1 11/202103/18/2022 mg/3 mL injection mg total) under the skin 2 (two) times a day. Continue medication until follow up appointments. Do not stop. oxyCODONE (OXY-IR) 5 mg Take 2 capsules by 0 02/1203/18/2022 immediate release mouth every 4 capsule (four) hours as needed. oxyCODONE (ROXICODONE) Take 1 tablet (10 60 tablet 0 202103/18/2022 10 mg IR mg total) by mouth tabletIndications: every 3 (three) Prolonged Acute hours as needed for Pain/Traumatic Injury pain (not controlled by Tylenol. Take 2 tabs for pain 4-6; take 3 tabs for pain 7-10.) Indication: Prolonged Acute Pain/Traumatic Injury. oxyCODONE (ROXICODONE) 5 Take 2 tablets (10 60 tablet 0 11/202103/25/2022 mg immediate release mg total) by mouth tabletIndications: Acute every 3 (three) Pain Exception hours as needed for pain (not controlled by Tylenol. Take 2 tabs for pain 4-6; take 3 tabs for pain 7-10.) Indication: Acute Pain Exception. documented as of this encounter Procedure Notes Yissel Martinez M.D. - 03/13/2022 8:00 AM CDT PATIENT DISPOSITION Patient transported to preoperative area prior to splenectomy with Dr. Rothman. POST-PROCEDURE DIAGNOSIS Splenomegaly PROCEDURE PERFORMED AND DESCRIPTION Splenic angiogram with [place] embolization of splenic artery PROCEDURE DETAILS See Radiology Report SPECIMENS REMOVED None FINDINGS See radiology report. PRIMARY PROCEDURALIST Dr. Rodrigez ASSISTANTS Dr. Martinez COMPLICATIONS None. DRAINS None. IMPLANTS None. ANESTHESIA General Anesthesia. FLUIDS See MAR ESTIMATED BLOOD LOSS <5ml CURRENT MEDICATIONS No Medication Changes FOLLOW-UP LETTER None. MAY RETURN TO WORK Not applicable PATIENT INSTRUCTIONS No return appointment documented in this encounter Plan of Treatment Not on filedocumented as of this encounter Procedures Procedure Name Priority Date/Time Associated Comments Diagnosis IR ARTERIAL RAD - Routine 03/13/2022 9:59 [...] the results section. PATIENT STATUS STAT 03/13/2022 9:02 Results fo [...] are in the results section. GLUCOSE, WHOLE STAT 03/13/2022 9:02 Results fo r BLOOD AM CDT this procedure are in the results section. CALCIUM, IONIZED, STAT 03/13/2022 9:02 Results for S/B AM CDT this procedure are in the results section. TRANSFUSE RED BLOOD Routine 03/13/2022 8:41 CELLS AM CDT documented in this encounter Results IR Arterial Embolization (03/13/2022 9:59 AM CDT) [...] image was created and stored. A 5 [place] Jasiel 1 sheath was placed. The celiac ar carolyne was selected with a Rand B catheter. Arteriogram demonstrating massive splenomegaly and d istortion of the celiac axis due to mass effect. The sheath was advanced into the splenic artery and a 4 [place] glide catheter was advanced further into the [...] image was created and stored. A 5 [place] Jasiel 1 sheath was placed. The celiac ar carolyne was selected with a Rand B catheter. Arteriogram demonstrating massive splenomegaly and d istortion of the celiac axis due to mass effect. The sheath was advanced into the splenic artery and a 4 [place] glide catheter was advanced further into the [...] embol ization. EP Hema CAMPOS IR PROCEDURES Patient Status (03/13/2022 9:57 AM CDT) P athologist Signature Temperature 37.0 37.0 deg C 03/13/2022 [facility] 9:57 AM CDT FIO2 0.47 0.21=AIR 03/13/2022 [facility] 9:57 AM CDT Specimen Anatomical Collection Method Collection Time Receive d Time (Source) Location / / Volume Laterality Blood 03/13/2022 9:57 AM 9:57 CDT AM CDT Meghan Ng APRN, DUNG LAB BLOOD NON ADD-ON Performing Organization Address City/State/ZIP Code Phon e Number [facility] - [address] [place] [address] [address] [place] [address] [facility] 200 [facility] (ABNORMAL) Blood Gas with Coox, Arterial (03/13/2022 9:57 AM CDT) P athologist Signature pO2 135 (H) 83 - 108 03/13/2022 [facility] mm Hg 10:00 AM CDT pCO2 42 32 - 45 mm 03/13/2022 [facility] Hg 10:00 AM CDT pH 7.41 7.35 - 03/13/2022 [facility] 7.45 pH 10:00 AM CDT Base Excess 2 -2 - 3 03/13/2022 [facility] mmol/L 10:00 AM CDT HCO3 26 22 - 26 03/13/2022 [facility] mmol/L 10:00 AM CDT Hemoglobin, B 6.1 (L) 11.6 - 03/13/2022 [facility] 15.0 g/dL 10:00 AM CDT O2Hb 92.5 (L) 94.0 - 03/13/2022 [facility] 98.0 % 10:00 AM CDT COHb 6.9 (H) <3.0 % 03/13/2022 [facility] 10:00 AM CDT MetHb 1.0 <1.5 % 03/13/2022 [facility] 10:00 AM CDT CtO2 8.2 (L) 18.0 - 03/13/2022 [facility] 21.0 vol % 10:00 AM CDT Specimen Anatomical Collection Method Collection Time Receive d Time (Source) Location / / Volume Laterality Blood (Blood, 03/13/2022 9:57 AM 03/13/20 9:57 Arterial Line) CDT AM CDT Meghan Ng APRN, CRNA LAB BLOOD NON ADD-ON Performing Organization Address City/[facility] Phon e Number [facility] - [address] [place], [place] [address] [address] [place] [address] Transfuse Red Blood Cells : (03/13/2022 9:09 AM CDT) Wanda Muniz APRN, C.N.P., M.S.N. BLOOD TRANSFUSIO N ORDERABLES Transfuse Red Blood Cells : , 1 Units (03/13/2022 9:09 AM CDT) Wanda Muniz APRN, C.N.P., M.S.N. BLOOD TRANSFUSIO N ORDERABLES Patient Status (03/13/2022 9:02 AM CDT) P athologist Signature Temperature 37.0 37.0 deg C 03/13/2022 [facility] 9:02 AM CDT FIO2 0.47 0.21=AIR 03/13/2022 [facility] 9:02 AM CDT Specimen Anatomical Collection Method Collection Time Receive d Time (Source) Location / / Volume Laterality Blood 03/13/2022 9:02 AM 9:02 CDT AM CDT Meghan Ng APRN, CRNA LAB BLOOD NON ADD-ON Performing Organization Address City/State/[facility] Code Phon e Number [facility] - [address] [place], [place] [address] [facility] [place] [address] Glucose, Whole Blood (03/13/2022 9:02 AM CDT) P athologist Signature Glucose 119 70 - 140 03/13/2022 9:08 [facility] mg/dL AM CDT Specimen Anatomical Collection Method Collection Time Receive d Time (Source) Location / / Volume Laterality Blood (Blood, 03/13/2022 9:02 AM 03/13/20 9:02 Arterial Line) CDT AM CDT Meghan Ng APRN, CRNA LAB BLOOD TROPONIN Performing Organization Address City/[facility]/ZIP Code Phon e Number [facility] - [address] [place], [place] [address] [place] [address] [facility] [address] [facility] Potassium, Blood (03/13/2022 9:02 AM CDT) athologist Signature Potassium, B 4.8 3.6 - 5.2 03/13/2022 [facility] mmol/L 9:08 AM CDT Specimen Anatomical Collection Method Collection Time Receive d Time (Source) Location / / Volume Laterality Blood (Blood, 03/13/2022 9:02 AM 03/13/20 9:02 Arterial Line) CDT AM CDT Meghan Ng APRN, CRNA LAB BLOOD NON ADD-ON Performing Organization Address City/[facility]/ZIP Code Phon e Number [facility] - [address] [place], [place] [address] [facility] [place] [address] [place] [address] [facility] Sodium, B (03/13/2022 9:02 AM CDT) athologist Signature Sodium, B 140 135 - 145 03/13/2022 9:08 [facility] mmol/L AM CDT Specimen Anatomical Collection Method Collection Time Receive d Time (Source) Location / / Volume Laterality Blood (Blood, 03/13/2022 9:02 AM 03/13/20 9:02 Arterial Line) CDT AM CDT Meghan Ng APRN, CRNA LAB BLOOD NON ADD-ON Performing Organization Address City/State/ZIP Code Phon e Number [facility] - [address] [place], [place] [address] [place] [address] Calcium, Ionized (03/13/2022 9:02 AM CDT) athologist Signature Calcium, 4.77 4.65 - 5.30 03/13/2022 [facility] Ionized, B mg/dL 9:08 AM CDT Specimen Anatomical Collection Method Collection Time Receive d Time (Source) Location / / Volume Laterality Blood (Blood, 03/13/2022 9:02 AM 03/13/20 9:02 Arterial Line) CDT AM CDT Meghan Ng APRN, CRNA LAB BLOOD NON ADD-ON Performing Organization Address City/State/ZIP Code Phon e Number [facility] - [address] [place], [place] [address] [facility] [place] [address] [facility] 200 [facility] (ABNORMAL) Blood Gas with Coox, Arterial (03/13/2022 9:02 AM CDT) P athologist Signature pO2 129 (H) 83 - 108 03/13/2022 [facility] mm Hg 9:08 AM CDT pCO2 54 (H) 32 - 45 mm 03/13/2022 [facility] Hg 9:08 AM CDT pH 7.33 (L) 7.35 - 03/13/2022 [facility] 7.45 pH 9:08 AM CDT Base Excess 2 -2 - 3 03/13/2022 [facility] mmol/L 9:08 AM CDT HCO3 28 (H) 22 - 26 03/13/2022 [facility] mmol/L 9:08 AM CDT Hemoglobin, B 6.0 (CL) 11.6 - 03/13/2022 [facility] 15.0 g/dL 9:08 AM CDT Comment: PROVIDER CONTACTED,HISTORICAL C RITICAL LOW HGB RESULT O2Hb 91.3 (L) 94.0 - 98.0 % 03/13/2022 9:08 AM CDT STM A COHb 7.9 (H) <3.0 % 03/13/2022 9:08 AM CDT [facility] MetHb <1.0 <1.5 % 03/13/2022 9:08 AM CDT [facility] CtO2 8.0 (L) 18.0 - 21.0 vol % 03/13/2022 9:08 AM CDT [facility] Specimen Anatomical Collection Method Collection Time Receive d Time (Source) Location / / Volume Laterality Blood (Blood, 03/13/2022 9:02 AM 03/13/20 9:02 Arterial Line) CDT AM CDT Meghan Ng APRN, CRNA LAB BLOOD NON ADD-ON Performing Organization Address City/State/ZIP Code Phon e Number [facility] - [address] [place], [place] [address] [facility] [place] [address] [facility] [address] documented in this encounter Visit Diagnoses Diagnosis Splenomegaly Acquired documented in this encounter Administered Medications Inactive Administered Medications - up to 3 most recent administrations Medication Order MAR Action Action Date Dose Rate Site iohexoL 300 mg iodine/mL solution Given 03/13/2022 9:59 AM CDT 1 50 mL (OMNIPAQUE) Code/trauma/sedation medication, Starting on Fri03/13/22 at 0959 iohexoL 350 mg iodine/mL solution (OMNIP AQUE) Given 03/13/2022 9:59 AM CDT 45 mL Code/trauma/sedation medication, Starting on Fri03/13/22 at 0959 lidocaine-sodium bicarbonate (buffered) Given 03/13/2022 9:58 AM CDT 5 mL 0.9%-8.4% injection infiltration, Code/trauma/sedation medication, Starting on Fri03/13/22 at 0958 documented in this encounter Care Teams Lead Driver Relationship Specialty Start Date End Date Elsewhere, Pcp PCP - General 11/04/21 documented as of this encounter
--- OUTSIDE RECORDS SUMMARY | 2022-05-02 12:02 | XMS_ITS | Encounter Summary ---
:1970 Author Organization [facility] Address [address] [place] [id number] Care Team Providers Name Role Phone Elsewhere, Pcp Primary Care Provider Unavailable Reason for Referral Outpatient (Routine) - Closed Specialty Diagnoses / Procedures Referred By Contact Refer red To Contact General Surgery Aleyda Mcginnis P.A.-C., [facility] M.S. [address] [place] [phone] Referral ID Status Reason Start Date Expiration Date Visits Requ ested Visits Authorized [id number] Closed 03/18/2022 2025 1 1 Scheduling Instructions Candidatz patient. To see Roxane/Rajani in [address] scan and labs. Hematology will be ordering f/u for the same time frame. MRI/CAT/PET Scan (Routine) - Closed Specialty Diagnoses / Procedures Referred By Contact Refer red To Contact Radiology Diagnoses Splenomegaly Acquired Myelofibrosis Primary (HCC) Aleyda Mcginnis P.A.-C., [facility] Procedures CT Abdomen Pelvis with IV Contrast M.S. [address] [place] [phone] Referral ID Status Reason Start Date Expiration Date Visits Requ ested Visits Authorized [id number] Closed 03/18/2022 03/18/2023 1 1 Encounter Details Date Type Department Care Team Description 03/13/2022 - Hospital Encounter [facility] Hema Rothman Acquired (Primary Dx); 03/18/2022 Hospital, Hernando Brito M.D. 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 - 03/18/2022 10:04 AM CDT DISCHARGE SUMMARY BRIEF OVERVIEW Hospital: [facility] Discharge Provider: Hema Rothman M.D. Primary Team: [facility] General Surgery - Stephan Primary Care Providers: Elsewhere, Pcp (General) No address on file Primary Care Provider Phone Number: None Primary Care Provider Fax Number: None Other Providers: None Admission Date: 03/13/2022 Discharge Date: 03/18/2022 PRINCIPAL DIAGNOSIS Splenomegaly Acquired SECONDARY DIAGNOSES Principal Problem: Splenomegaly Acquired Resolved Problems: * No resolved hospital problems. * Surgery Information This Encounter Past Procedures (03/18/2021 to Today) Date Procedures Providers Location 03/13/2022 LAPAROSCOPIC HAND ASSISTED SPLENECTOMY. Hema Rothman M.D.Steadman, Jessica A, M.B.BZahraaSZahraa [facility] ROMB OR DISCHARGE DISPOSITION Home or Self Care [1] OUTPATIENT FOLLOW UP For appointment details refer to your Patient Appointment Guide. 1. Anticoagulation plan: Lovenox 90mg BID in the setting of abdominal cancer operation and Hematology service preference. Do not stop this medication until you have been seen by your surgeon or Rajani Bullock PA-C or Roxane Castellon APRN in clinic. If you will run out of this medication before follow up, please call the number below for a refill. 2. Follow up plan: -Patient will follow up in 1 week with local sand shoveler for blood work (CBC). Please have these results faxed to [phone] attn: Dr. Rothman for review, or send results in via your patient portal. Amember of Dr. Rothman's service will contact you in 1 week to evaluate how you are doing after discharge from the hospital. You should be transfused with blood product when your Hgb is less than 7 or platelets are less than 10,000. -Patient will follow up in 1 month with a member of Dr. Rothman's service and Hematology. A CT scan and blood work will be completed at that time as well. 3. Antibiotic plan: None. 4. Drain plan: None. 5. To guard against infections and illness, your health care provider recommends you receive the follow vaccinations starting either 2 weeks prior to the operation or 2 weeks after the operation. Your primary care provider can administer these vaccinations. * Bexsero (MenB) - Meningococcal conjugate B vaccine 0.5 ml IM X2 doses-second dose should be given at least 4 weeks after initial dose. Give a single booster 12 months after completion of primary series * Haemophilus B Vac 0.5ml IM Adult (Hib) * Pneumococcal -- 1 dose of PCV20 and no booster; or 13-Hansa Conj Vac 0.5 ml IM (PCV13) followed by booster of Pneumococcal polysaccharide vaccine 0.5 ml IM (PPSV23) at least 8 weeks after PCV13. *Meningococcal 4-valent conjugate- a single dose of MenQuadfi (MenACWY-TT), if continued risk of exposure to meningococcal virus a single booster may be given 4 years after the initial dose. ?? MenQuadfin may be given simultaneously with PCV13. TEST RESULTS PENDING AT DISCHARGE Pending Labs Order Current Status Surgical Pathology, Frozen Lab In process DETAILS OF HOSPITAL STAY REASON FOR ADMISSION Splenomegaly Acquired HOSPITAL COURSE -Probable myelofibrosis status post laparoscopic hand assisted splenectomy, 03/13/2022. The patient was admitted to [facility]. The patient was taken to the operating room where they underwent the above procedure. The patient tolerated the procedure well. Aftera brief stay in the postanesthesia care unit, the patient was transferred to the general surgical floor. Throughout the hospitalization, pain was well managed with IV and oral pain medications. At the timeof discharge, the patient was tolerating a general diet, and pain was controlled on oral pain medication alone. OPERATIVE PROCEDURE 03/13/22 Laparoscopic hand assisted splenectomy FINAL PATHOLOGY Pending at discharge. ADDITIONAL DIAGNOSES -Anticoagulation Therapy The Hematology service was consulted for ongoing recommendations and cares. Secondary to her risk factors for thrombosis (underlying myeloproliferative neoplasm and post-splenectomy) she was placed on therapeutic Lovenox 90mg BID. She will continue this medication at time of discharge and review ongoing cares at her follow up appointment. CHRONIC CONDITIONS -Chronic Pain Syndrome The Pain service was consulted for ongoing recommendations and cares. -Transfusion dependent anemia The patient was given blood as indicated. Her hemoglobin at time of dismissal was 8.3. -Thrombocytopenia -Pulmonary hypertension -Chronic RV failure -Tricuspid regurgitation -Gout -Anxiety -Insomnia -GERD Chronic conditions were stable throughout the hospitalization. The patient's home medications were restarted as indicated. CONSULTS ORDERED DURING THIS ADMISSION IP CONSULT TO HEMATOLOGY CONDITION AT DISCHARGE stable Discharge instructions were provided to the patient and caregiver(s). documented in this encounter Discharge Instructions AttachmentsThe following attachments cannot be sent through Care Everywhere. Acetaminophen (By mouth) (Tristanian)Cyclobenzaprine (By mouth) (Tristanian)Enoxaparin (By injection) (Tristanian)Oxycodone, Rapid Release (By mouth) (Tristanian)documented in this encounter Medications at Time of [...] known because they are new for her. oxyCODONE (ROXICODONE) 5 Take 2 tablets (10 60 tablet 0 11/202103/25/2022 mg immediate release mg total) by mouth tabletIndications: Acute every 3 (three) Pain Exception hours as needed for pain (not controlled by Tylenol. Take 2 tabs for pain 4-6; take 3 tabs for pain 7-10.) Indication: Acute Pain Exception. enoxaparin (LOVENOX) 100 Inject 0.9 mL (90 60 mL 1 11/202103/19/2022 mg/mL injection mg total) under the skin 2 (two) times a day. Continue medication until follow up appointments. Do not stop. documented as of this encounter Progress Notes Lois Alfredo - 03/18/2022 10:37 AM CDT Hematology Hospital Consult Service Progress Note SUBJECTIVE Interval Events - enoxaparin injection 80 mg BID today - platelets 424 from 297 - hemoglobin stable at 8.3 I have reviewed the current medication list. 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 Jennifer Dobbs is a 51-year-old female with history of CALR/SF3B1 primary myelofibrosis previously treated with Jakafi, alisertib, 9-ING-41 clinical study, fedratinib, complicated by chronic transfusion dependent anemia and symptomatic acquired splenomegaly s/p laparoscopic splenectomy on 03/13, thro mbocytopenia, hypertension, obesity, pulmonary hypertension, chronic RV failure and tricuspid regurgitation. She presented to the hospital for scheduled laparoscopic splenectomy on 03/[address] 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 She underwent splenectomy without complications with spleen measuring 30 cm on removal. Following procedure, her platelets increased from 53 to 143 in one day. Now in normal range. She has risk factorsfor thrombosis, including underlying myeloproliferative neoplasm and post-splenectomy. Specifically,there also the risk of post-splenectomy portal vein thrombosis. She has been gradually uptitrated onanticoagulation to decrease risk of thrombosis. Final Recommendations: Transfuse for Hb < 7, Plt < 10,000 Continue therapeutic anticoagulation with either apixaban 5 mg BID or enoxaparin 90 mg (1 mg/kg) BID, to be continued at discharge We will arrange outpatient follow-up with primary sand shoveler Dr. Govea when she returns for her 4week surgical follow-up Plan discussed with Hematology protection consultant Dr. Kanu Talamantes who is in agreement with the plan. We plan to sign off. Please page [phone] 7a-5p and [phone] 5p-7a with any additional questions. Randallgenesis Alfredo, MS-4 Hematology Consult Service Edin Krueger M.D. - 03/18/2022 10:08 AM CDT SUBJECTIVE Postop Day: 5 Days Post-Op Hospital Day: LOS: 5 days Jennifer Dobbs is a 52 y.o. female is postoperative day for hand assisted laparoscopic splenectomyfor myelofibrosis. I examined Ms. Dobbs today and she is in good spirits. Sitting comfortably in her chair. Her pain is appropriately controlled. She is tolerating diet. No nausea, vomiting. OBJECTIVE Vitals Temperature: [36.6 ??C-36.8 ??C] 36.6 ??C Resp Rate: [20-22] 20 Blood Pressure: (114-149)/(70-78) 149/78 SpO2: [92 %-99 %] 92 % Pulse Rate: [73-82] 82 I/O Intake/Output Last 24 Hours: Intake/Output Summary (Last 24 hours) at 03/18/2022 1008 Last data filed at 03/18/2022 0900 Gross per 24 hour Intake 2140 ml Output 2850 ml Net -710 ml IN: PO 2000 mL OUT: UOP 2200 mL. Labs Recent Results (from the past 24 hour(s)) CBC without Differential Collection Time: 03/18/22 6:27 AM Result Value Hemoglobin 8.3 (L) Hematocrit 28.0 (L) Erythrocytes 3.00 (L) MCV 93.3 RBC Distrib Width 19.6 (H) Platelet Count 424 (H) Leukocytes 8.3 Basic Metabolic Panel Collection Time: 03/18/22 6:27 AM Result Value Potassium, S 5.1 Sodium, S 138 Chloride, S 101 Bicarbonate, S 28 Anion Gap 9 BUN (Blood Urea Nitrogen), S 13 Creatinine 0.79 Estimated GFR (eGFR) 89 Calcium, Total, S 9.0 Glucose, S 98 Cultures: Microbiology Results (last 30 days) Procedure Component Value - Date/Time SARS Coronavirus 2, Molecular Detection, PCR, Varies Asymptomatic [[id number]] Collected: 03/12/22 0937 Lab Status: Final result Specimen: Varies from Nasopharynx Updated: 03/12/22 1502 COVID-19, PCR, Source Swab, Nasopharynx COVID-19, PCR, Result Undetected Comment: SARS-CoV-2 RNA absent. This result does not rule out COVID-19 in the patient, as the sensitivity of the test depends on the timing of the specimen collection and quality of the specimen. Result should be correlated with patient's history and clinical presentation. ----ADDITIONAL INFORMATION---- This RT-PCR test using the Lucidworks SARS-CoV-2 Assay ( eFolder.) performed on the Lucidworks Two Module System has received Emergency Use Authorization (EUA) by the U.S. Food and Drug Administration, and is modified from the judicial assistant's instructions with a bridging study. Performance characteristics were verified by [facility] in a manner consistent with CLIA requirements. Visit the CDC website: https://www.cdc.gov/coronavirus/ for the most recent guidelines on Coronavirus testing. Fact Sheet for Healthcare Providers: https://www.fda.gov/media/973126/download Fact Sheet for Patients: https://www.fda.gov/media/552868/download Physical Exam Physical Exam General: Alert and oriented. Not in acute distress. Has more color in skin. Abdomen: Soft, non tender, not distended. Incisions appropriately healing. Assessment Assessment and Plan #1 Splenomegaly Acquired Mrs Dobbs is a 51 y.o. lady POD 3 s/p Laparoscopic hand assisted splenectomy for Myelofibrosis. Historically was received he opted 3 transfusions weekly with her history myelofibrosis. So this wasnot out of the range of normal her. Hemoglobin increased from 7.3->8.3 today with no use of transfusion. This was a large jump likely due to splenectomy. She is feeling great and looking forward to dismissal today. Was told to follow up with sand shoveler for weekly CBC, splenectomy vaccines in 2 weeks, and CT pancreas protocol in 4 weeks. PLAN: -Regular diet -restart home torsemide -Increase Lovenox to 90 b.i.d.. -to be dismissed today -transfusions if HgB if <7, platelet less than 10,000 Home Meds: Allopurinol, B12, torsemide, folic acid Pain Control: Dilaudid (oral), Oxycodone , Tylenol, and Morphine PO Bowel ppx: Miralax and Senokot DVT ppx: Lovenox 90 mg b.i.d. Diet: General adult diet Dispo: Discharge in a few days. Follow up plan would be to see her back in [address] pancreas protocol. Patient is being cared for by the [facility] team. Edin Krueger M.D. PGY1 [phone] Kira Lockhart M.D. - 2022 9:51 AM CDT Hematology Hospital Consult Service Progress Note SUBJECTIVE Interval Events - increased enoxaparin injection from 60 mg BID to 80 mg BID today - platelets 297 from 225 - hemoglobin stable at 7.3 after 1U I have reviewed the current medication list. 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 Jennifer Dobbs is a 51-year-old female with history of CALR/SF3B1 primary myelofibrosis previously treated with Jakafi, alisertib, 9-ING-41 clinical study, fedratinib, complicated by chronic transfusion dependent anemia and symptomatic acquired splenomegaly s/p laparoscopic splenectomy on 03/13, thro mbocytopenia, hypertension, obesity, pulmonary hypertension, chronic RV failure and tricuspid regurgitation. She presented to the hospital for scheduled laparoscopic splenectomy on 03/[address] 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 She underwent splenectomy without complications with spleen measuring 30 cm on removal. Following procedure, her platelets increased from 53 to 143 in one day. Now in normal range. She has risk factorsfor thrombosis, including underlying myeloproliferative neoplasm and post-splenectomy. Specifically,there also the risk of post-splenectomy portal vein thrombosis. She has been gradually uptitrated onanticoagulation to decrease risk of thrombosis. Recommendations: Transfuse for Hb < 7, Plt < 10,000. When stable from a surgical standpoint, increase to therapeutic anticoagulation with either apixaban5 mg BID or enoxaparin 90 mg (1 mg/kg) BID, to be continued at discharge. We will arrange outpatient follow-up with primary sand shoveler Dr. Govea when she returns for her 4week surgical follow-up. Plan discussed with Hematology protection consultant Dr. Ponce Miller who is in agreement with the plan. We will continue to follow. Please page [phone] 7a-5p and [phone] 5p-7a with any questions. Kira Lockhart M.D. Internal Medicine, PGY-2 Hematology Consult Service Edin Krueger M.D. - 2022 8:27 AM CDT SUBJECTIVE Postop Day: 4 Days Post-Op Hospital Day: LOS: 4 days I met and examined Ms. Dobbs today. She was laying comfortably in bed. Expresses some difficulty sleeping last night but feels better this morning. Her pain is appropriately controlled. She is tolerating diet. No nausea, vomiting. OBJECTIVE Vitals Temperature: [36.6 ??C-36.8 ??C] 36.8 ??C Resp Rate: [17-22] 22 Blood Pressure: (119-137)/(57-73) 128/72 SpO2: [88 %-95 %] 95 % Pulse Rate: [71-80] 71 I/O Intake/Output Last 24 Hours: Intake/Output Summary (Last 24 hours) at 2022 0835 Last data filed at 2022 0500 Gross per 24 hour Intake 1830 ml Output 3000 ml Net -1170 ml IN: P.o. 1400, RBC 330 mL, maintenance fluid 83 ml. OUT: UOP 3000 mL. Labs Recent Results (from the past 24 hour(s)) CBC without Differential Collection Time: 03/16/22 9:04 AM Result Value Hemoglobin 7.1 (L) Hematocrit 22.5 (L) Erythrocytes 2.48 (L) MCV 90.7 RBC Distrib Width 20.5 (H) Platelet Count 261 Leukocytes 13.2 (H) CBC without Differential Collection Time: 03/16/22 1:22 PM Result Value Hemoglobin 7.6 (L) Hematocrit 24.2 (L) Erythrocytes 2.62 (L) MCV 92.4 RBC Distrib Width 18.4 (H) Platelet Count 260 Leukocytes 12.4 (H) Hepatic Function Panel Collection Time: 03/16/22 1:22 PM Result Value Bilirubin, Total, S 0.4 Bilirubin, Direct, S <0.2 Aspartate Aminotransferase (AST), S 95 (H) Alanine Aminotransferase (ALT), S 140 (H) Alkaline Phosphatase, S 144 (H) Albumin, S 3.3 (L) Protein, Total, S 5.2 (L) CBC without Differential Collection Time: 03/17/22 3:43 AM Result Value Hemoglobin 7.3 (L) Hematocrit 24.1 (L) Erythrocytes 2.61 (L) MCV 92.3 RBC Distrib Width 19.3 (H) Platelet Count 297 Leukocytes 7.1 Basic Metabolic Panel Collection Time: 03/17/22 3:43 AM Result Value Potassium, S 4.8 Sodium, S 137 Chloride, S 103 Bicarbonate, S 27 Anion Gap 7 BUN (Blood Urea Nitrogen), S 14 Creatinine 0.78 Estimated GFR (eGFR) >90 Calcium, Total, S 8.5 (L) Glucose, S 96 Cultures: Microbiology Results (last 30 days) Procedure Component Value - Date/Time SARS Coronavirus 2, Molecular Detection, PCR, Varies Asymptomatic [[id number]] Collected: 03/12/22 0937 Lab Status: Final result Specimen: Varies from Nasopharynx Updated: 03/12/22 1502 COVID-19, PCR, Source Swab, Nasopharynx COVID-19, PCR, Result Undetected Comment: SARS-CoV-2 RNA absent. This result does not rule out COVID-19 in the patient, as the sensitivity of the test depends on the timing of the specimen collection and quality of the specimen. Result should be correlated with patient's history and clinical presentation. ----ADDITIONAL INFORMATION---- This RT-PCR test using the Lucidworks SARS-CoV-2 Assay ( SendGrid) performed on the Lucidworks Two Module System has received Emergency Use Authorization (EUA) by the U.S. Food and Drug Administration, and is modified from the judicial assistant's instructions with a bridging study. Performance characteristics were verified by [facility] in a manner consistent with CLIA requirements. Visit the CDC website: https://www.cdc.gov/coronavirus/ for the most recent guidelines on Coronavirus testing. Fact Sheet for Healthcare Providers: https://www.fda.gov/media/599084/download Fact Sheet for Patients: https://www.fda.gov/media/605878/download Physical Exam Physical Exam Assessment Assessment and Plan #1 Splenomegaly Acquired Mrs Dobbs is a 51 y.o. lady POD 3 s/p Laparoscopic hand assisted splenectomy for Myelofibrosis. She had a drop in hemoglobin yesterday for which we transfused a pint of RBC. Hemoglobin remained stable 7.3 this morning. Historically was received he opted 3 transfusions weekly with her history myelofibrosis. So this was not out of the range of normal her. PLAN: -Regular diet -Increase Lovenox from 60 b.i.d. to 80 b.i.d. -Lasix 20 mg to decrease fluid in lungs -Daily CBC to check HgB if <7 transfuse Home Meds: Allopurinol, B12, torsemide, folic acid Pain Control: Dilaudid (oral), Oxycodone , Tylenol, and Morphine PO Bowel ppx: Miralax and Senokot DVT ppx: Lovenox 80 mg b.i.d. Diet: General adult diet Dispo: Discharge in a few days. Follow up plan would be to see her back in [address] pancreas protocol. Patient is being cared for by the [facility] team. Edin Krueger [phone] Tesfaye Ibrahim M.B.B.S. - 03/16/2022 1:42 PM CDT General Surgery Progress Note SUBJECTIVE I met and examined Ms. Dobbs today. She was laying comfortably in bed. Her pain is appropriately controlled. She is tolerating diet. No nausea, vomiting. OBJECTIVE Temperature: [36.6 ??C-37.3 ??C] 36.8 ??C Resp Rate: [16-18] 18 Blood Pressure: (119-127)/(53-74) 119/57 SpO2: [92 %-95 %] 92 % Flow Rate (L/min): [1 L/min] 1 L/min Pulse Rate: [72-105] 72 I/O: UOP: 2700ml RBC transfusion - 330ml Physical Exam General: Alert and oriented. Not in acute distress. Slight pallor. Abdomen: Soft, non tender, not distended. Incisions appropriately healing. Diagnostics Labs: Hb 7.7 (6.3/6.8/7.1) WBC 13.2 (12/11.7) Platelets (261/225/238) ASSESSMENT / PLAN #1 Splenomegaly Acquired Mrs Dobbs is a 51 y.o. lady POD 3 s/p Laparoscopic hand assisted splenectomy for Myelofibrosis. She had a drop in hemoglobin for which we transfused a pint of RBC and repeated a TEG study which showed a hypercoagulation picture. We will increase the lovenox bid from the prophylactic dose last night of 40 mg to 60 mg today and likely 80 mg bid tomorrow. 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 Follow up plan would be to see her back in [address] pancreas protocol. Patient was seen and examined with Dr. Roy. Please don't hesitate to contact [facility] service with any questions or concerns. Jonathon Brar.S. Kira Lockhart M.D. - 03/16/2022 12:36 PM CDT Hematology Hospital Consult Service Progress Note SUBJECTIVE Interval Events - Received 1 unit PRBCs today with Hb increase from from 6.3 to 7.1. - Increase in platelet count to 261 this morning, started on subtherapeutic enoxaparin injections with 40 mg yesterday evening and 60 mg this morning. On evaluation this morning, she is eating a late breakfast and is very hungry. Pain well controlled on SATELLITE DISH INSTALLER pump. Requiring 1L/min oxygen via nasal cannula. Has been passing gas but no bowel movement since surgery. . I have reviewed the current medication list. OBJECTIVE PHYSICAL EXAMINATION General: Awake, alert, and oriented. Not in distress. Pulm: Breathing comfortably on nasal cannula. HEENT: Conjunctival pallor. Negative for scleral icterus. Pupils round. Hearing and vision grossly intact. Abdomen: Soft and non-distended. Incisions clean, dry, and intact. Mild bruising around incision sites. Skin: No skin rashes. Mild pallor. No evidence of jaundice, cyanosis. 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 Jennifer Dobbs is a 51-year-old female with history of CALR/SF3B1 primary myelofibrosis previously treated with Jakafi, alisertib, 9-ING-41 clinical study, fedratinib, complicated by chronic transfusion dependent anemia and symptomatic acquired splenomegaly s/p laparoscopic splenectomy on 03/13, thro mbocytopenia, hypertension, obesity, pulmonary hypertension, chronic RV failure and tricuspid regurgitation. She presented to the hospital for scheduled laparoscopic splenectomy on 03/[address] 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 She underwent splenectomy without complications with spleen measuring 30 cm on removal. She required6 units PRBCs and 1 unit platelets intraoperatively. Following procedure, her platelets increased from 53 to 143 in one day. She has risk factors for thrombosis, including underlying myeloproliferativeneoplasm and post-splenectomy. Specifically, there also the risk of post-splenectomy portal vein thrombosis. She was started on very low heparin drip and transitioned to enoxaparin yesterday to decrease risk of thrombosis. Recommendations: Continue to monitor CBC every 12 hours Transfuse for Hb < 7, Plt < 10,000 When stable from a surgical standpoint, increase to therapeutic anticoagulation with either apixaban5 mg BID or Lovenox 90 mg (1 mg/kg) BID, to be continued at discharge We will arrange outpatient follow-up with primary sand shoveler Dr. Govea. Plan discussed with Hematology protection consultant Dr. Ponce Miller and Hematology fellow Dr. Annamaria De Luna. We will continue to follow. Please page [phone] 7a-5p and [phone] 5p-7a with any questions. Kira Lockhart M.D. Internal Medicine, PGY-2 Hematology Consult Service Rivka Prabhakar Pharm.D., R.Ph. - 03/16/2022 9:47 AM CDT Pharmacist Progress Note Reason for admission: 51 y/o female with myelofibrosis and splenomegaly s/p splenectomy on 03/13/2022. PMH: anxiety, chronic pain, pancytopenia, sinus tachycardia, heart failure, HTN, hyperphosphatemia, GERD, insomnia OBJECTIVE VSS/wnl; Hgb: 6.3 this AM - txfn x1 PRBCs Pain: 6-10; APAP/MS contin scheduled, oxy prn (60 yest, none since [place]); HM SATELLITE DISH INSTALLER (13.6 yest, 4 since MN) Good UOP, SCr: 0.9 Home medications: Held: torsemide, supplements Prophylaxis: Lovenox 60 mg BID 138 104 15 / 102 4.8 28 0.90 \ 03/16 0254 ASSESSMENT / PLAN Neuro: Appreciate pain medicine recommendations. Avoiding NSAIDs with history of CHF Heme: Heme follows - lovenox 60 mg twice daily ordered this AM. Recommended to progress to 1 mg/kg BID or apixaban 5 mg BID at discharge. Right-sided heart failure: Torsemide held in the immediate post-operative period, furosemide IV x1 yesterday. Difficult to assess fluid balance per chart. Discussed with primary service and will defer to their assessment. Changes to medications anticipated at discharge: Heme recs, splenectomy vaccines Rivka Prabhakar Pharm.D., R.Ph. Juni Randall R - 03/15/2022 11:37 AM CDT [facility] Consult Service Progress Note SUBJECTIVE Interval Events - Received 1 unit PRBCs yesterday with Hb increase to 7.9 from 7.0. This morning stable at 7.2 - Increase in platelet count to 187 this morning, on very low intensity heparin drip - Decrease in WBC count to 17.9 post-operatively On evaluation this morning, she reports only pain around incision sites, moderately controlled with current regimen. Reports mild shortness of breath, requiring 2L NC overnight, denies chest pain, or worsening cough. Denies lower extremity edema, pain, erythema. No bowel movement yet. I have reviewed the current medication list. OBJECTIVE PHYSICAL EXAMINATION General: Awake, alert, and oriented. Not in distress. HEENT: Conjunctival pallor. Negative for scleral icterus. Pupils round. Hearing and vision grossly intact. Abdomen: Soft and non-distended. Incisions clean, dry, and intact. Mild bruising around incision sites. Skin: No skin rashes. Mild pallor. No evidence of jaundice, cyanosis. 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 Jennifer Dobbs is a 51-year-old female with history of CALR/SF3B1 primary myelofibrosis previously treated with Jakafi, alisertib, 9-ING-41 clinical study, fedratinib, complicated by chronic transfusion dependent anemia and symptomatic acquired splenomegaly s/p laparoscopic splenectomy on 03/13, thro mbocytopenia, hypertension, obesity, pulmonary hypertension, chronic RV failure and tricuspid regurgitation. She presented to the hospital for scheduled laparoscopic splenectomy on 03/[address] 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 She underwent procedure without complications, with spleen measuring 30 cm on removal. She required 6 units PRBCs and 1 unit platelets. Following procedure, her platelets increased from 53 to 143 in one day. She has risk factors for thrombosis, including underlying myeloproliferative neoplasm and post- splenectomy. She was started on very low heparin drip to decrease risk of thrombosis. WBC and platelet increase expected post-operatively. Recommendations: Continue to monitor CBC every 12 hours Transfuse for Hb < 7, Plt < 10,000 Increase anticoagulation to moderate intensity heparin drip. We will discuss potential need for anticoagulation upon discharge with her primary Geochemical Laboratory Technician, Dr. Govea. Plan discussed with Hematology protection consultant Dr. Ponce Miller and Hematology fellow Dr. Annamaria De Luna. We will continue to follow. Please page [phone] 7a-5p and [phone] 5p-7a with any questions. Lois Alfredo, MS-4 Hematology Consult Service Associated attestation - Ponce Miller M.D. - 03/15/2022 11:59 AM CDT This is an attestation note. I saw and evaluated the patient participating in the roa portions of the in-patient visit service. I reviewed Medical student Lois Alfredo's note and discussed the findings and plan. Briefly Mrs. Dobbs is a very pleasant 51-year-old female with primary myelofibrosis (CALR and [id number]) failed several treatment in the past and admitted for splenectomy. Clinically doing fine. She may need some form of anticoagulation post discharge. Mason Mike M.B.B.S. - 03/15/2022 7:28 AM CDT HPBS PROGRESS NOTE Hospital Day: 3 Jennifer Dobbs is a 51 y.o. female Laparoscopic hand assisted splenectomy 2 Days Post-Op SUBJECTIVE Patient is doing well this morning and had no acute events overnight. Pain is appropriately controlled with Dilaudid SATELLITE DISH INSTALLER and intermittent p.o. oxycodone. No nausea and vomiting. Tolerating diet. No return of bowel function. Patient has been ambulating. OBJECTIVE Vitals: Temperature: [36.7 ??C-36.9 ??C] 36.9 ??C Heart Rate: [89] 89 Resp Rate: [16-18] 16 Blood Pressure: (112-135)/(53-74) 119/53 SpO2: [94 %-98 %] 95 % Flow Rate (L/min): [1 L/min-2 L/min] 1 L/min Pulse Rate: [87-106] 91 I/O 03/13 0701 03/14 0700 03/14 0701 03/15 0700 03/15 0701 03/16 0700 P.O. 400 840 Red Blood Cells 1980 394 Platelets 192 Maintenance IV 4600 395 408 Continuous Medications 110.4 114.7 Intermittent Medications 100 Total Intake(mL/kg) 7272 (77.7) 1739.4 (18.9) 522.7 (5.7) Urine (mL/kg/hr) 2275 (1) 2300 (1) 1750 (2) Blood 1500 Total Output 3775 2300 1750 Net +3497 -560.6 -1227.4 DIAGNOSTICS Results from last 7 days Lab Units 03/15/22 0819 WBC x10(9)/L 18.5* HEMOGLOBIN g/dL 7.3* HEMATOCRIT % 23.5* MCV fL 89.4 PLATELETS AUTO x10(9)/L 220 Results from last 7 days Lab Units 03/15/22 0433 03/13/22 1700 03/13/22 1510 SODIUM P mmol/L -- 138 -- SODIUM mmol/L 136 -- -- NABS SODIUM mmol/L -- -- 136 CHLORIDE P mmol/L -- 105 -- CHLORIDE mmol/L 101 -- -- BUN P mg/dL -- 34* -- BUN mg/dL 24* -- -- CREATININE mg/dL 1.02 1.08* -- CALCIUM P mg/dL -- 9.1 -- CALCIUM mg/dL 8.2* -- -- PHOSPHORUS INORGANIC mg/dL -- 6.2* -- MAGNESIUM mg/dL -- 2.8* -- Results from last 7 days Lab Units 03/13/22 1112 PROTHROMBIN TIME ILPT sec 13.1* INR 1.2 APTT ILAPT sec 30 Physical Exam: Gene: Awake, alert, and oriented. Not in acute distress. Lung: Regular rate, non-labored respirations. Heart: Regular rate. Abdo: Abdomen is soft, non-tender except expected tenderness around incisions, and non-distended. Incision is clean, dry, and intact with no erythema/discharge/fluctuance. Ext: No edema. Warm and appears well perfused. Pulses full and equal. Motor and sensory grossly intact. IMPRESSION: #1 Splenomegaly Acquired ASSESSMENT / PLAN Jennifer Dobbs is doing well. She remained vitally stable and afebrile. Pain is appropriately controlled on SATELLITE DISH INSTALLER and intermittent oxycodone. On exam, abdomen is soft, non-distended, and expected tenderness. Incisions are unremarkable. She is making urine, 2.4 L in last 24 hours and 850ml since midnight. She is net negative 560 and total positive 2.9 liters. BNP 2573. She is tolerating diet but smallamount, no nausea and vomiting. Hb this morning 7.2 after giving 1 unit yesterday and platelets 187.TEG MA 80.7, so we don???t need platelets transfusion, creatinine 1.02. Plan: Pain Service consult Encourage protein shakes and boost Gentle diuresis Will transfuse if repeat Hb less than 7 IV lock for fluids Will switch to Lovenox 30 b.i.d. after Hematology recommendations. Ambulation and chest physio Please don't hesitate to contact [facility] service with any questions or concerns. Electronically signed by: Freddy RoyB.B.S. Dena Mendez, Shaun., R.Ph. - 03/14/2022 1:30 PM CDT Pharmacist Progress Note Reason for admission: 51 y/o female with myelofibrosis and splenomegaly s/p splenectomy on 03/13/2022. PMH: anxiety, chronic pain, pancytopenia, sinus tachycardia, heart failure, HTN, hyperphosphatemia, GERD, insomnia OBJECTIVE Home medications: Held: torsemide, supplements Changed: none Patient own medications: none Prophylaxis: IV heparin 20.7* \ 7.0* / 143* / 21.7* \ 03/14 1157 138 105 34* / 197* 5.0 21* 1.08* \ 03/13 1700 Heme: Wbc trending down to 20.7 from 21.4, Plt trending up to 143 from 120 ID: periop abx completed, afebrile CV: HR 90s-120s, BP 130s/70s-90s GI: ARoBF, -fs Renal: Scr stable (1.08 from baseline of 1.1-1.4), adequate UOP Neuro: pain scores 6-10 on APAP, home MS Contin, and prn oxycodone ASSESSMENT / PLAN Neuro: Pain scores elevated on home regimen of MS Contin, refusing scheduled acetaminophen. Using 40 mg of oxycodone since midnight, likely will have higher requirements as she is not opioid-naive; monitor pain closely. Avoiding NSAIDs d/t history of heart failure. Heme: Low-intensity heparin nomogram started post-operatively. Heme consult placed for PMH of myelofibrosis, pancytopenia, and chronic transfusion-dependent anemia, f/u recs. Right-sided heart failure: Torsemide held in the immediate post-operative period, furosemide IV x1 today. Avoiding NSAIDs. Changes to medications anticipated at discharge: Heme recs, splenectomy vaccines Dena Mendez PharmZahraaDZahraa, R.Ph. Mason Mike M.B.B.S. - 03/14/2022 7:26 AM CDT HPBS PROGRESS NOTE Hospital Day: 2 Jennifer Dobbs is a 51 y.o. female Laparoscopic hand assisted splenectomy 1 Day Post-Op SUBJECTIVE Patient is doing well this morning and had no acute events overnight. She complains of pain in her torso. Has some nausea but no vomiting. Not Passing bowel movements and flatus. Tolerating clear liquids. Patient has been ambulating. OBJECTIVE Vitals: Temperature: [36.3 ??C-36.9 ??C] 36.8 ??C Heart Rate: [80-108] 95 Resp Rate: [0-34] 18 Blood Pressure: (97-135)/(57-94) 120/65 Arterial Line BP: (115-141)/(65-81) 134/72 FiO2 (%): [1 %] 1 % SpO2: [91 %-100 %] 96 % Flow Rate (L/min): [1 L/min-10 L/min] 2 L/min Pulse Rate: [79-121] 105 I/O 03/12 0703/13 0703/13 0703/14 0703/14 0703/15 0700 P.O. 400 Red Blood Cells 1980 Platelets 192 Maintenance IV 4600 229.7 Continuous Medications 64 Intermittent Medications 100 Total Intake(mL/kg) 7272 (77.7) 293.6 (3.2) Urine (mL/kg/hr) 2275 (1) 600 (0.8) Blood 1500 Total Output 3775 600 Net +3497 -306.4 DIAGNOSTICS Results from last 7 days Lab Units 03/14/22 1157 WBC x10(9)/L 20.7* HEMOGLOBIN g/dL 7.0* HEMATOCRIT % 21.7* MCV fL 88.6 PLATELETS AUTO x10(9)/L 143* Results from last 7 days Lab Units 03/13/22 1700 03/13/22 1510 03/13/22 1413 SODIUM P mmol/L 138 -- -- NABS SODIUM mmol/L -- 136 137 CHLORIDE P mmol/L 105 -- -- BUN P mg/dL 34* -- -- CREATININE mg/dL 1.08* -- -- CALCIUM P mg/dL 9.1 -- -- PHOSPHORUS INORGANIC mg/dL 6.2* -- -- MAGNESIUM mg/dL 2.8* -- -- Results from last 7 days Lab Units 03/13/22 1112 PROTHROMBIN TIME ILPT sec 13.1* INR 1.2 APTT ILAPT sec 30 Physical Exam: Gene: Awake, alert, and oriented. Not in acute distress. Lung: Regular rate, non-labored respirations. Heart: Regular rate. Abdo: Abdomen is soft, non-tender except expected tenderness around incisions, and non-distended. Incision is clean, dry, and intact with no erythema/discharge/fluctuance. Ext: No edema. Warm and appears well perfused. Pulses full and equal. Motor and sensory grossly intact. IMPRESSION: #1 Splenomegaly Acquired ASSESSMENT / PLAN Jennifer Dobbs is doing well. She remained vitally stable and afebrile. HR 80- 108. She is complaining of significant pain this morning in her torso. On exam, abdomen is soft, non-distended, and expected tenderness. Incisions are unremarkable. She is making urine, 2.2 L in last 24 hours and 600ml since midnight. She is tolerating liquids 400mls already. Hb this morning 7.5, and platelets 120. TEG ispending. Active Plans: Better pain control, possible pain service consult if needed Progress diet DC Foleys Will transfuse if repeat Hb less than or equal to 7 Continue low intensity heparin Ambulation and chest physio Please don't hesitate to contact [facility] service with any questions or concerns. Electronically signed by: Ronaldo Roy.B.S. Kathy Morrison, Pharm.D., R.Ph. - 03/11/2022 2:55 PM CDT Images from the original note were not included. Family was contacted via telephone to confirm current medication list. The medication list below wasupdated by a pharmacist and reflects the patient's medication list on the date of this note. Last dose dates/times that will need to be updated when patient is admitted for surgery: Morphine ER (please document last dose of 60 mg tablet and the 15 mg tablet- thank you) torsemide Medications being held prior to surgery: None known Modified Medications Sig allopurinoL (ZYLOPRIM) 300 mg tablet Take one tab by mouth daily. calcium acetate,phosphat bind, (PHOSLO) 667 mg (169 mg calcium) capsule TAKE 2 CAPSULES BY MOUTH THREE TIMES DAILY Notes to Pharmacy: Patient requests 90 days supply cyanocobalamin (VITAMIN B12) 100 mcg tablet Take 100 mcg by mouth once a week. Mondays folic acid 1 mg tablet Take by mouth daily. LORazepam (ATIVAN) 0.5 mg tablet Take 1-2 mg by mouth at bedtime as needed for anxiety or sleep. morphine (MS CONTIN) 15 mg ER tablet Take 15 mg by mouth at bedtime. With 60 mg for total dose of 75 mg in the evening morphine (MS CONTIN) 60 mg ER tablet Take 1 tablet by mouth 2 (two) times a day. oxyCODONE (OXY-IR) 5 mg immediate release capsule Take 2 capsules by mouth every 4 (four) hours as needed. sennosides (SENOKOT) 8.6 mg tablet Take 1 tablet by mouth at bedtime as needed for constipation. sodium-potassium bicarbonate (VASYL-SELTZER GOLD) 344-1,050-1,000 mg tablet, effervescent Take 1 tablet by mouth daily as needed (upset stomach). torsemide (DEMADEX) 20 mg tablet Take 1 tablet (20 mg total) by mouth daily. Patient taking differently: Take 20 mg by mouth every morning. May take an additional dose in the evening if needed for swelling UNABLE TO FIND Med Name: Cannabis- patient's reports this is newly prescribed for her and as of 03/11/22, has not yet started. Reports patient will have gummies as well as a tablet, have not picked these up yet. Strength of these is not known because they are new for her. Kathy Morrison Pharm.D., R.Ph. documented in this encounter Consult Notes Leena Sandhu M.D. - 03/15/2022 1:10 PM CDT Images from the original note were not included. Pain Medicine Inpatient Consult Note Reason for Consult: Acute on chronic pain regimen optimization. Referring Service: Stephan Zurita SUBJECTIVE HISTORY OF PRESENT ILLNESS Mrs. Jennifer Dobbs has a PMH significant for chronic pain and primary myelofibrosis with splenomegalywho underwent splenectomy with Dr. Rothman service. The pain service is consulted for assistance with acute on chronic pain. She is chronically prescribed oral morphine 60 mg BID + 15 mg qHS PRN for chronic pain. Her baselinepain prior to admission remained around a 7/10. At the moment she states that her pain is a 6/10 butwith ambulation it increases to 8- 9/10. She feels that her pain is adequately controlled at the moment, and she has preemptively been using the SATELLITE DISH INSTALLER for mobilization. She denies any nausea, vomiting, somnolence or additional symptoms. She had a lot of trouble with pain control yesterday evening and thePCA was starting which provided the most improvement. Yesterday's requirements: - Tylenol 100 mg - Morphine 60 mg PO - Oxycodone 30 mg PO - Hydromorphone SATELLITE DISH INSTALLER 3.2 mg total Current Medications: - Tylenol 1000 mg q6h - Hydromorphone SATELLITE DISH INSTALLER 0.4/10/8 - Morphine 60 mg BID + 15 mg qHS - Oxycodone 5/10 mg q3h PRN Home Medications: - Morphine 60 mg BID + 15 mg qHS - Oxycodone 5 mg q4h PRN Home average OME: 120 mg OME Calculator Home average daily pain score: 7/10 Prior Medication Trials: None Previous Injections: - Liposomal bupivacaine 75 mL Physical Therapy: No PT/OT evaluation REVIEW OF SYSTEMS Pertinent items are noted in HPI; all other review of systems was negative. OBJECTIVE VITAL SIGNS Temperature: [36.7 ??C-36.9 ??C] 36.8 ??C Heart Rate: [89-95] 89 Resp Rate: [16-18] 16 Blood Pressure: (112-135)/(57-74) 112/57 SpO2: [94 %-98 %] 97 % Flow Rate (L/min): [1 L/min-2 L/min] 1 L/min Pulse Rate: [87-106] 87 Vitals: 03/14/22 1845 03/14/22 1851 03/14/22 1918 03/14/22 2046 Pain Score: 10 - Worst possible pain 10 - Worst possible pain 10 - Worst possible pain 9 03/14/22 2137 03/14/22 2315 03/14/22 2353 03/15/22 0432 Pain Score: 6 5 - Moderate pain 5 - Moderate pain 3 03/15/2291603/15/22 1122 03/15/22 1126 03/15/22 1224 Pain Score: 5 - Moderate pain 10 - Worst possible pain 10 - Worst possible pain 8 Pain Assessment Pain Assessment: 0-10 Numeric Pain Intensity Scale (03/14/222352 : Prakash Murry R.N.) Pain Score: 8 (03/15/22 1224 : Sameer Cain, R.N.) Faces Pain Scale: 0 (03/13/22 1659 : Rachelle Stapleton, R.N.) Pain Type: Surgical pain (03/14/22838 : Gabriela Dobbins R.N.) Pain Location: Abdomen (03/15/22531 : Prakash Murry R.N.) Pain Orientation: Mid (03/14/22838 : Gabriela Dobbins R.N.) Pain Descriptors: Aching, Pressure (03/14/22838 : Gabriela Dobbins, R.N.) Pain Onset: Ongoing (03/14/22838 : Gabriela Dobbins, R.N.) Pain Frequency: Constant/continuous (03/14/22838 : Gabriela Dobbins, R.N.) Clinical Progression: Not changed (03/14/22838 : Gabriela Dobbins, R.N.) Patient's Stated Pain Goal: 8 (03/14/22838 : Gabriela Dobbins R.N.) Pain Interventions: Medication (See MAR) (SATELLITE DISH INSTALLER available) (03/14/222352 : Prakash Murry R.N.) Response to Interventions: Asleep (03/15/22531 : Prakash Murry R.N.) Resp Rate: 16 (03/15/225 : Sameer Cain, R.N.) Respiratory Depth/Rhythm: Regular (03/15/22 0900 : Luigi Avila, R.N.) PAIN PHYSICAL EXAM GENERAL: Alert, oriented, and answering questions appropriately. SKIN: No gross rashes or lesions present. HEAD: Normocephalic and atraumatic. EYES: Sclera anicteric. LUNGS: Normal respiratory excursions. NEURO: Symmetrical features. ASSESSMENT / PLAN Mrs. Jennifer Dobbs has a PMH significant for chronic pain and primary myelofibrosis with splenomegalywho underwent splenectomy with Dr. Rothman service. The pain service is consulted for assistance with acute on chronic pain. She feels her pain is adequately controlled at the moment and improved from previous days. She understand the goal is to transition back to oral analgesics. At the moment we would not recommend additional changes to current pain regimen. RECOMMENDATIONS: - Continue current pain regimen - After 24-48 hr with adequate control on hydromorphone SATELLITE DISH INSTALLER would calculate total dose needed over 24 hours. To transition to oral: - To convert to oral hydromorphone multiply 24h IV dose x3 for 24h oral hydromorphone requirement. This total can be divided and administered in q4-6h intervals. It would be expected that the patient would wean over 1-2 weeks back to her baseline usage prior to surgery. -Maximize non-opioid therapies: - Acetaminophen scheduled 1000 mg PO QID if no contraindications. - NSAIDs per primary/surgical team- Would recommend Toradol PRN if no contraindications. - Lidocaine patch PRN - Voltaren gel, fqnmldsx-ujwarfvcdlcnk-fbdbocnpc-lipoderm gel, bengay PRN -Consider integrative medicine techniques (massage, pet therapy, acupuncture) - Continuous pulse oximetry while titrating opioids - Heat and ice as needed - Bowel regimen and other cares per primary service - Discontinue tramadol. This medication is a weak Mu-agonist, decreases seizure threshold, interactswith many medications and can precipitate serotonin syndrome. - Naloxone IV prn. Should naloxone be indicated, and it is safe to do so, please consider graduated titration. This would commonly include diluting 0.4 mg naloxone into 9 ml NS. This is then titrated in aliquots of 40 mcg (1 ml). Results are seen rapidly and allow for effective titration. If emergent reversal is indicated full dose Naloxone can be administered (0.4 mg). This will result in a pain crisis but avert/reverse respiratory collapse if secondary to opiates. Post op/Uptitration Recs - Primary goal of pain management regiment is to provide the majority of pain control via oral medications when it is safe to do so. This offers a more steady state of pain management and will help to prevent pain crisis. Optimization of oral medications is the primary goal. All IV medications are to be used for break through pain only and should not be first line. - Monitor for signs of pain sedation mismatch and effective respirations with uptitration of opiates. - If there are pain crisis please ensure oral medications are being used to their full capacity (frequency and dose)and there are no large gaps in administrations of the oral medications. - Administration of medications with different mechanisms together (acetaminophen, toradol, opiates,local anesthetics, and ketamine) is safe, and work on separate receptors providing pain control. - Hold all narcotic and benzodiazepine medications if RR<12 -Oxycodone 5-10 mg PO Q 4 PRN. -If above dose is ineffective and consistently using max dose, subsequent changes could include Oxycodone 5-10 mg PO Q3 hours PRN (shortened time interval). If again ineffective increase to Oxycodone 10-15 mg PO Q 3 hours PRN(Increased dosage). or - Hydromorphone 2-4 mg PO Q 4 PRN - If above dose ineffective and consistently using max dose, subsequent changes could include Hydromorphone 4-6 mg PO Q 4 PRN (Increased dosage). If again ineffective increase to Hydromorphone 4-6 mg PO Q 3 hours PRN (shortened time interval). - Hydromorphone 0.2 mg IV Q 1-2 hours PRN. First line should be use, and optimization of oral medications as the duration of action for IV narcotics is significantly less than their oral counterpart. If ineffective could consider an increase to Hydromorphone 0.4 mg IV Q 1-2 hours PRN or initiation of SATELLITE DISH INSTALLER. - If above ineffective transition to Hydromorphone SATELLITE DISH INSTALLER level 1 and DC IV push. - If above enteral and parenteral changes are ineffective could consider Ketamine pushes 5-10 mg Q 1-2 hours PRN. If no dysphoria, hallucinations or vital sign concerns could consider ketamine infusionif bolus dosing is ineffective. (Relative contraindications include active psychosis, , elevated ICP, elevated IOP, and patients where increased sympathetic tone may be harmful) -If required: Ketamine infusion titration includes initiation at 0.1 mg/kg/min (dosed on ideal body weight if actual BW is greater than IBW) and monitoring for an hour for adverse effects. This can be uptitrated to a max of 0.3 mg/kg/min outside of the ICU on all general care floor. This is typically done in increments of 0.1 mg/kg/min if free of dysphoria and hallucinations while not receiving adequate pain relief. This medication does not carry the risk of respiratory depression. This is able to be ordered and titrated by the primary service. Down titration/Discontinuation - Order of discontinuation: first remove ketamine followed by SATELLITE DISH INSTALLER then IV. Start at whichever step based on requirements from previous section. If ketamine started and reached max dose (0.3 mg/kg/min ) can halve it for a couple hours to ensure pain managed effectively then discontinue completely. The only risk with discontinuation is increasedpain and this can be managed with an increase in oral regiment if felt necessary by primary service. 2. If SATELLITE DISH INSTALLER utilized, when discontinuing assess current oral regiment to identify if increased oral dosage of medications is needed to help mitigate the IV requirements. When discontinuing the SATELLITE DISH INSTALLER, should continue to have IV PRN rescue available. 3. If requiring a large amount of IV medications (SATELLITE DISH INSTALLER or rescue) would recommend optimizing oral oxycodone/hydromorphone dose as outlined above. I would expect pain to continue to decrease as patient moves farther away from the surgical stimulus/precipitating event. Goal is a stable oral regiment thatallows them to be appropriately engaged and alert with a tolerable level of pain. Home Going - Once transitioned to an all oral regiment, I would recommend an acute script of 3-7 days meeting current inpatient oral requirements per primary teams discretion. - If utilizing chronic opiates at home would recommend transitioning back to their chronic regiment after completion of the acute script. - If prescribed chronic medications in the outpatient setting please establish a follow up appointment with your provider before completion of your acute script. Thank you for involving the Pain Medicine team in the care of this patient. The plan and assessment were discussed with Dr. Woods, Pain Medicine protection consultant. We will sign off. Please call the relevantservice pager to clarify further or raise concerns ([place]:[phone] or [place]: [phone]). Leena Sandhu M.D. Anesthesiology and Perioperative Medicine CA-1/PGY-2 Pager #[phone] Associated attestation - Sameer Woods M.D. - 03/15/2022 3:35 PM CDT I saw and evaluated the patient, participating in the roa portions of the service. I reviewed the resident/fellow???s note. I agree with the resident/fellow???s findings and plan. 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 Jennifer Dobbs is a 51 y.o. female with medical history of CALR/SF3B1, 13q- primary myelofibrosis, previously treated with Jakafi, alisertib clinical trial, 9-ING-41 clinical study, and most recently on fedratinib (started in June 2021), symptomatic acquired splenomegaly status post laparoscopic splenectomy on 03/13/[address] Rothman, chronic transfusion dependent anemia, thrombocytopenia, hypertension, obesity, pulmonary hypertension, chronic RV failure and tricuspid regurgitation. She presented to the hospital for scheduled laparoscopic splenectomy. Hematology Consult Service was consulted for post- splenectomy due to myelofibrosis, history of pancytopenia with chronic transfusion dependent anemia. She was initially diagnosed with primary myelofibrosis in August 2015, when she had left upper quadrant discomfort. On presentation to the ED, she was found to have splenomegaly on imaging (20 cm). Subsequent bone marrow examination by outside sand shoveler, Dr. Hu, revealed CALR primary myelofibrosis. Her previous treatments are outlined below: 08/2015-01/2016: Jakafi, stopped due to lack of response and transfusion dependent anemia 05/2016-08/2016: [id number] clinical study utilizing alisertib, completed 3 cycles, terminated due to severe bone pain, daily headaches, extreme fatigue, mood changes 05/2020-07/2020: 9-ING-41 clinical trial, terminated due to fatigue, edema, bone pain 06/2021-02/2022: Fedratinib, subsequently stopped due to lack of response, anemia exacerbation, and plan to proceed with splenectomy She has intermittently been on erythropoiesis-stimulating agents Repeat bone marrow study in 2018 demonstrated myelofibrosis with CALR and SF3B1 mutations, 20-30% sideroblasts, 13q deletion. She was hospitalized in May 2021 due to fluid accumulation, found on echocardiogram to have severe tricuspid regurgitation, right sided heart failure, and pulmonary hypertension. She is followed by Pulmonary Hypertension team, on torsemide at home. She was evaluated for allogeneic hematopoietic stem cell transplantation in July 2021, and it wasdecided to attempt to further optimize her situation prior to BMT, including splenectomy. In February 2022, she was requiring 2 units of RBC transfusions every other week, with symptomatic splenomegaly including constipation, bloating, early satiety, nausea, and narcotics for pain control. On 03/13/2022, she underwent splenic artery embolization with Interventional Radiology, followed by subsequent laparoscopic splenectomy with General Surgery. There were no complications. Her spleen measured 30 cm at time of removal. She had a total of 1,500 mL of blood loss, with total of 6 units PRBCsand 1 unit platelets transfused. Prior to surgery, labs included Hb 6.5, MCV 90.8, RDW 25.3, Plt 53,WBC 3.6. Post-operatively, her Hb was 8.6, Plt 58, WBC 23.7. Her labs from this morning include Hb 7.5, Plt 120, WBC 21.4. Her most recent labs from 12 pm include Hb 7, Plt 143, WBC 20.7. She was started on a heparin drip at about 21:00 on 03/13. She has been mildly tachycardic post-operatively, with HR up to 110. Otherwise vitals within normal limits. On examination today, she reports abdominal pain, she reports as diffuse following surgery. She has a history of chronic pain due to splenomegaly, controlled with home regimen of MS Contin. She endorses shortness of breath post-operatively, SpO2 95% on room air. She was given 2L NC overnight but patient reportsthis was not helpful. She has chronic cough with mild clear phlegm production, unchanged. Denies chest pain, palpitations. Endorses mild nausea, controlled with PRN promethazine. Denies fevers, chills,congestion, diarrhea, constipation. Denies lower extremity pain, swelling, erythema. Denies any signs of bleeding or new bruising, aside from incisions. REVIEW OF SYSTEMS Pertinent items are noted in HPI; all other review of systems negative. OBJECTIVE VITAL SIGNS Temperature: [36.3 ??C-36.9 ??C] 36.5 ??C Heart Rate: [80-108] 91 Resp Rate: [0-34] 12 Blood Pressure: (97-135)/(57-84) 135/83 Arterial Line BP: (115-141)/(65-81) 134/72 FiO2 (%): [1 %] 1 % SpO2: [91 %-100 %] 91 % Flow Rate (L/min): [1 L/min-10 L/min] 2 L/min Pulse Rate: [79-110] 110 PHYSICAL EXAMINATION General: Awake, alert, and oriented. Not in distress. HEENT: Conjunctival pallor. Negative for scleral icterus. Pupils round. Hearing and vision grossly intact. Chest: Mildly diminished breath sounds in bilateral lung bases. Otherwise normal vesicular breathingwith equal air entry bilaterally. CVS: Normal rate, regular rhythm. Normal S1, prominent S2 with grade III/ holosystolic murmur at left sternal border. No lower extremity edema. Abdomen: Soft and non-distended. Mild tenderness to palpation above umbilicus, with voluntary guarding. Incisions clean, dry, and intact. Mild bruising around incision sites. Skin: No skin rashes. Mild pallor. No evidence of jaundice, cyanosis. Extremities: Tone: normal. Lower limb edema: negative. Neuro: Cranial nerves grossly intact. DIAGNOSTICS Recent Labs 03/14/22 0613 WBC 21.4 H HGB 7.5 L HCT 22.7 L PLT 120 L ASSESSMENT / PLAN #1 CALR and SF3B1 mutated primary myelofibrosis #2 Transfusion dependent anemia #3 Symptomatic acquired splenomegaly, s/p laparoscopic splenectomy on 03/13 #4 Thrombocytopenia #5 Leukocytosis #6 Pulmonary hypertension #7 Chronic RV failure #8 Tricuspid regurgitation #9 Gout Mrs. Jennifer Dobbs is a 51-year-old female with history of CALR/SF3B1 primary myelofibrosis previously treated with Jakafi, alisertib, 9-ING-41 clinical study, fedratinib, complicated by chronic transfusion dependent anemia and symptomatic acquired splenomegaly s/p laparoscopic splenectomy on 03/13, thro mbocytopenia, hypertension, obesity, pulmonary hypertension, chronic RV failure and tricuspid regurgitation. She presented to the hospital for scheduled laparoscopic splenectomy on 03/[address] 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 She underwent procedure without complications, with spleen measuring 30 cm on removal. She required 6 units PRBCs and 1 unit platelets. Following procedure, her platelets increased from 53 to 143 in one day. She has risk factors for thrombosis, including underlying myeloproliferative neoplasm and post- splenectomy. She was started on heparin drip to decrease risk of thrombosis. Additionally, her WBC increased from 3.6 to 23.7, with subsequent decrease to 20.7. She remains afebrile. WBC and platelet increase expected post-operatively. Will continue to monitor for evidence of thrombocytosis that wouldrequire intervention or increase in WBC count. Recommendations: Continue to monitor CBC every 12 hours Transfuse for Hb < 7, Plt < 10,000 Continue anticoagulation with heparin drip Plan discussed with Hematology Fellow, Dr. Annamaria De Luna. Please page [phone] 7a-5p and [phone] 5p-7a with any questions. Lois Alfredo, MS-4 Hematology Consult Service documented in this encounter Nursing Notes Sherron Puente R.N. - 03/18/2022 8:41 AM CDT Problem: PAIN - ADULT Goal: PT VERBALIZES/DEMONSTRATES ADEQUATE COMFORT LEVEL OR BASELINE Outcome: Adequate for Discharge Problem: KNOWLEDGE DEFICIT Goal: Patient/family/caregiver demonstrates understanding of disease process, treatment plan, medications, and discharge instructions Outcome: Adequate for Discharge Problem: INFECTION - ADULT Goal: Absence of infection during hospitalization Outcome: Adequate for Discharge Problem: SKIN/TISSUE INTEGRITY Goal: Skin/Tissue integrity maintained or improved Outcome: Adequate for Discharge Goal: Oral and Nasal mucous membranes remain intact Outcome: Adequate for Discharge Problem: SAFETY ADULT Goal: Maintain a safe environment Outcome: Adequate for Discharge Problem: DISCHARGE PLANNING Goal: Patient discharge needs identified Outcome: Adequate for Discharge Problem: SAFETY ADULT - RISK FOR FALL AND OR FALL INJURY Goal: Patient remains free from fall/fall injury Outcome: Adequate for Discharge Problem: GASTROINTESTINAL - ADULT Goal: Minimal or absence of nausea and vomiting Outcome: Adequate for Discharge Goal: Optimize bowel function Outcome: Adequate for Discharge Goal: Nutrient intake appropriate for improving, restoring or maintaining nutritional needs Outcome: Adequate for Discharge Shift Goals: Clinical Goals for the Shift: Pain management Identify possible barriers to meeting goals/advancing plan of care: End of Shift Summary: Patient adequate for discharge. Teaching completed with patient with no questions or concerns. Discharged to home/ self-care. Shira Anand R.N. - 2022 5:23 AM CDT Problem: PAIN - ADULT Goal: PT VERBALIZES/DEMONSTRATES ADEQUATE COMFORT LEVEL OR BASELINE Outcome: Progressing Problem: KNOWLEDGE DEFICIT Goal: Patient/family/caregiver demonstrates understanding of disease process, treatment plan, medications, and discharge instructions Outcome: Progressing Problem: SAFETY ADULT Goal: Maintain a safe environment Outcome: Progressing Problem: GASTROINTESTINAL - ADULT Goal: Optimize bowel function Outcome: Progressing Shift Goals: Clinical Goals for the Shift: VSS, pain management Identify possible barriers to meeting goals/advancing plan of care: None End of Shift Summary: Patient was able to sleep well throughout night. She had one episode of night sweats. VSS. Pain managed with PRN Oxycodone. Adequate urine output. All needs addressed. Lois Alfredo - 03/15/2022 4:31 PM CDT Addendum to Plan of Care Recommend therapeutic anticoagulation with either apixaban 5 mg BID or Lovenox 1 mg/kg BID, to be continued at discharge. Will arrange outpatient follow-up with primary Geochemical Laboratory Technician Dr. Govea. Plan discussed with Hematology protection consultant Dr. Ponce Miller and Hematology fellow Dr. Annamaria De Luna. We will continue to follow. Please page [phone] 7a-5p and [phone] 5p-7a with any questions. Lois Alfredo, MS-4 Hematology Consult Service documented in this encounter OR Notes Op Note - Hema Rothman M.D. - 03/13/2022 11:22 AM CDT Pre-op Diagnosis Splenomegaly Acquired Post-op Diagnosis Splenomegaly Acquired A assistant women's rowing coach actively participated and was necessary for one or more of the following: opening,exposure and visualization during the case, maintaining hemostasis, wound closure resulting in its safe and expeditious completion. Findings As expected. This case was substantially more difficult than usual because of tumor size. Complications None Operative Note Narrative After successful pre-operative splenic artery embolization by Interventional Radiology the patient was brought back to OR 103. She was already intubated and under general anesthesia. A sterile marie catheter and orogastric tube were inserted. The patient recieved pre-operative antibiotics and DVT chemo prophylaxis. A small bump was placed behind the shoulders on the left side. The abdomen was then prepped and draped in the usual sterile fashion. A pause was performed confirming the correct patient, procedure and instruments. The Cox retractor was placed on the bed in case we had to emergently convert to open. Then we marked out a bilateral subcostal incision with a skin marker. We incised a 7 cm hand port incision in the right subcostal region with a scalpel. Electrocautery was used to divide the subcutaneous tissue.We maintained meticulous hemostasis with the electrocautery through the skin and subcutaneous layers. The external oblique fascia was incised with the electrocautery. The external oblique muscles were divided with the LigaSure. The internal oblique fascia was then incised with the electrocautery and the internal oblique muscle was divided with the LigaSure. The transversus abdominus muscle was divided with the LigaSure. We then entered the peritoneum. The Nadir hand port was placed. I then placed a 5 mm AirSeal trocar in the left upper quadrant. Pneumoperitoneum to 10 mm Hg was obtained. Two additional 10 mm trocars were placed in the right lower quadrant. I then grasped the omentum with my handand utilized the LigaSure to enter the lesser sac between the greater curvature of the stomach and the spleen. The lesser sac was entered and the pancreas was exposed. The splenic artery was identifiedat the superior border of the pancreas and was followed distally untill it started to branch near the splenic hilum. The distal splenic artery was circumferentially dissected and divided with the Endo-MEHREEN 45 mm stapler with de la garza load and zenaida-strip reinforcement. The remainder of the short gastric vessels were taken down with LigaSure. The inferior and superior poles of the spleen were mobilized with the LigaSure. I then elevated the pancreas and under direct visualization created a tunnel under the pancreas and splenic hilum alternating between blunt dissection with the suction stencil cutter and sharp dissection with the hook cautery. At this point I could pass my fingers through tunnel under the hilum of the spleen and began to thin out the hilum area with the LigaSure. We divided the splenic vein near the tail of the pancreas before the splenic hilum with a 45 mm SureForm stapler with de la garza load andperi-strip reinforcement. The spleen very stuck to the right diaphragm. I was able to use the LigaSure to take down some of the retroperitoneal attachments but the right diaphragm attachments were mobilized bluntly by finger dissection. The large 30 cm spleen was very difficult to get into the sterilebag. It took 45 minutes to tray and get the spleen completely in the bag. I then was able to deliverthe bag edges out of the hand port and I proceeded to morcellize the spleen taking great care to notrupture the bag and to keep the bag edges completely outside the abdomen. The specimen was sent to pathology who weighed the spleen at 5.6 Kg. I then changed gloves and re- established pneumoperitoneum.I then spent 90 minutes establishing meticulous hemostasis. We irrigated with >3L of sterile water. We used a combination of Quick clot, argon beam and Romel to obtain excellent hemostasis of the right hemidiaphragm and retroperitoneum. I attempted to take the splenic vein closer to the IMV. FirstI removed the distal transverse colon omentum for beater visualization. I could identify the IMV infracolic but not supra colic. We had such great hemostasis and the splenic vein was very adherent to the pancreas I eventually decided not to proceed further. I applied 10 mL of Tisseel to the pancreas, splenic artery and vein. I then closed the two 10 mm trocars using a chanda cox and the #0 PDS plus sutures. The right subcostal fascia was close din two layers with running #0 PDS plus suture. Thesubcutaneous tissues was irrigated with betadine and re-approximated with 2--0 vicryl plus suture. Th e skin was closed with a 4-0 PDS Monocryl plus suture. Dermabond was applied. The patient tolerated the procedure well and was successfully extubated. Hema Rothman M.D. documented in this encounter Miscellaneous Notes Hospital Course - Aleyda Mcginnis P.A.-C., M.S. - 03/13/2022 7:29 AM CDT -Probable myelofibrosis status post laparoscopic hand assisted splenectomy, 03/13/2022. The patient was admitted to [facility]. The patient was taken to the operating room where they underwent the above procedure. The patient tolerated the procedure well. Aftera brief stay in the postanesthesia care unit, the patient was transferred to the general surgical floor. Throughout the hospitalization, pain was well managed with IV and oral pain medications. At the timeof discharge, the patient was tolerating a general diet, and pain was controlled on oral pain medication alone. OPERATIVE PROCEDURE 03/13/22 Laparoscopic hand assisted splenectomy FINAL PATHOLOGY Pending at discharge. ADDITIONAL DIAGNOSES -Anticoagulation Therapy The Hematology service was consulted for ongoing recommendations and cares. Secondary to her risk factors for thrombosis (underlying myeloproliferative neoplasm and post-splenectomy) she was placed on therapeutic Lovenox 90mg BID. She will continue this medication at time of discharge and review ongoing cares at her follow up appointment. CHRONIC CONDITIONS -Chronic Pain Syndrome The Pain service was consulted for ongoing recommendations and cares. -Transfusion dependent anemia The patient was given blood as indicated. Her hemoglobin at time of dismissal was 8.3. -Thrombocytopenia -Pulmonary hypertension -Chronic RV failure -Tricuspid regurgitation -Gout -Anxiety -Insomnia -GERD Chronic conditions were stable throughout the hospitalization. The patient's home medications were restarted as indicated. documented in this encounter Plan of Treatment Pending Results Name Type Priority Associated Diagnoses Date/Ti me Prepare Platelets : 1 Blood Bank STAT 2021 8:30 PM CDT Units Prepare Red Blood Blood Bank Routine 03/12/2022 8:55 AM CDT Cells, 4 Units Prepare Red Blood Blood Bank Routine 03/12/2022 8:55 AM CDT Cells, 4 Units Transfuse Red Blood Blood Bank Routine 03/13/20 2:28 PM CDT Cells : , 4 Units Transfuse Red Blood Blood Bank Routine 03/13/20 2:27 PM CDT Cells : Prepare Red Blood Blood Bank Routine 03/16/2022 7:26 AM CDT Cells, 1 Units Scheduled Referrals Name Type Priority Associated Diagnoses Order S [facility] Surgery Outpatient Referral Routine Expec latonya: office visit 04/17/2022 (clinic) (Approximate), Expires: 06/17/2023 documented as of this encounter Procedures Procedure Name Priority Date/Time Associated Comments Diagnosis CBC WITHOUT Routine 03/18/2022 6:27 Results for DIFFERENTIAL, B AM CDT this procedu re are in the results section. BASIC METABOLIC Routine 03/18/2022 6:27 Results f or PANEL, S/P AM CDT this procedure are in the results section. ADULT OXYGEN THERAPY Routine 2022 8:00 AM CDT CBC WITHOUT Routine 2022 3:43 Results for DIFFERENTIAL, B AM CDT this procedu re are in the results section. BASIC METABOLIC Routine 2022 3:43 Results f [...] procedu re are in the results section. PHOSPHORUS Timed [...] in the critically ill results patients) section. TROPONIN T, BASELINE, STAT 03/15/2022 Result s for 5TH GEN, P 11:42 PM CDT this procedure are in the results section. SPSMA RESULT STAT 03/15/2022 Results for 11:42 PM CDT this procedure are in the results section. CBC WITH STAT 03/15/2022 Results for DIFFERENTIAL, B 11:42 PM CDT this procedu re are in the results section. ECG STAT [...] OXYGEN THERAPY Routine 03/15/2022 8:01 AM CDT NT-PRO B-TYPE Routine 03/15/2022 4:33 Results for NATRIURETIC PEPTIDE AM CDT this pro cedure (BNP), S are in the results section. HEPARIN LEVEL ANTI-XA Routine 03/15/2022 4:33 Res ults for ASSAY, P AM CDT this procedure are in the results section. CBC WITHOUT Timed 03/15/2022 4:33 Results for DIFFERENTIAL, B AM CDT this procedu re are in the results section. BASIC METABOLIC Timed 03/15/2022 4:33 Results f or PANEL, S/P AM CDT this procedure are in the results section. THROMBOELASTOGRAPH, STAT 03/15/2022 4:32 Resul ts for KAOLIN + HEPARINASE, AM CDT this pr ocedure B are in the results section. THROMBOELASTOGRAPH, Timed [...] BLOOD Routine 03/14/2022 1:37 CELLS PM CDT HEPARIN LEVEL ANTI-XA Timed 03/14/2022 Result s for ASSAY, P 11:57 AM CDT this procedure are in the results section. CBC WITHOUT Timed 03/14/2022 Results for DIFFERENTIAL, B 11:57 AM CDT this procedu re are in the results section. THROMBOELASTOGRAPH, STAT 03/14/2022 9:00 Resul ts for KAOLIN + HEPARINASE, AM CDT this pr ocedure B are in the results section. HEPARIN LEVEL ANTI-XA Timed 03/14/2022 6:13 Res ults for ASSAY, P AM CDT this procedure are in [...] procedu re are in the results section. PHOSPHORUS STAT 03/13/2022 5:00 Results for (INORGANIC), S PM CDT this procedur e are in the results section. MAGNESIUM, S STAT 03/13/2022 5:00 Results for PM CDT this procedure are in the results section. CALCIUM, IONIZED, S/B STAT 03/13/2022 5:00 Res ults for PM CDT this procedure are in [...] all are in the outpatients) results section. LACTATE, B STAT 03/13/2022 3:10 Results for PM CDT this procedure are in the results section. PATIENT STATUS STAT 03/13/2022 3:10 [...] are in the results section. CALCIUM, IONIZED, S/B STAT 03/13/2022 3:10 Res ults for PM CDT this procedure are in [...] are in the results section. CALCIUM, IONIZED, S/B STAT 03/13/2022 2:13 Res ults for PM CDT this procedure are in [...] BLOOD Routine 03/13/2022 1:35 CELLS PM CDT ABG W/COOX STAT 03/13/2022 1:24 Results for PM CDT this procedure are in the results section. CALCIUM, IONIZED, S/B STAT 03/13/2022 1:24 Res ults for PM CDT this procedure are in [...] are in the results section. CALCIUM, IONIZED, S/B STAT 03/13/2022 Result s for 11:13 AM CDT this procedure are in the results section. ACTIVATED PARTIAL STAT 03/13/2022 Results fo r THROMBOPLASTIN TIME 11:12 AM CDT this pro cedure (APTT), P are in the results section. PROTHROMBIN TIME [...] BLOOD Routine 03/13/2022 CELLS 10:49 AM CDT LAPAROSCOPIC 03/13/2022 9:51 Splenomegaly SPLENECTOMY AM CDT Acquired TRANSFUSE RED BLOOD Routine 03/13/2022 9:17 CELLS AM CDT PREPARE RED BLOOD Routine 03/12/2022 8:55 CELLS AM CDT PREPARE RED BLOOD Routine 03/12/2022 8:55 CELLS AM CDT documented in this encounter Results CT Abdomen [...] IV CONTRAST COMPARISON: ??Comparison is made to mult iple prior studies, including most recent CT from [...] Aleyda Mcginnis P.A.-C., M.S. IMG CT PROCEDURES (ABNORMAL) Comprehensive Metabolic Panel (04/19/2022 9:47 AM CDT) P athologist Signature Potassium, S 5.4 (H) 3.6 [...] Organization Address City/State/ZIP Code Phon e Number [facility] - [address] [place] [address] 05 [facility] [place] [address] Laboratories-[facility] 200 [facility] Bilirubin, Direct (04/19/2022 9:47 AM CDT) P athologist Signature Bilirubin, <0.2 0.0 - 0.3 04/19/2022 DTL Direct, S mg/dL 11:02 AM CDT Specimen Anatomical Collection Method Collection Time Receive d Time (Source) Location / / Volume Laterality Blood (Blood, 04/19/2022 9:47 AM 04/19/20 Venous) CDT 10:32 AM CDT Aleyda Mcginnis P.A.-C., M.S. LAB BLOOD ADD-ON Performing Organization Address City/[facility] Phon e Number [facility] - [address] [place] [address] 55 05 [facility] [place] [address] [facility]-[address] (ABNORMAL) Prothrombin Time (PT) (04/19/2022 9:47 [...] Organization Address City/State/ZIP Code Phon e Number [facility] - [address] [place] [address] 05 [facility] [place] [address] Laboratories-[address] Basic Metabolic Panel (03/18/2022 6:27 AM CDT) P athologist Signature Potassium, S 5.1 3.6 [...] AM 03/18/20 6:50 Venous) CDT AM CDT Vanda Bustamante APRN.N.P., D.N.P., M.S.N. LAB BLOOD AD D-ON Performing Organization Address City/State/ZIP Code Phon e Number [facility] - [address] [place] [address] 05 [facility] [place] [address] [facility] 200 [facility] (ABNORMAL) CBC without Differential (03/18/2022 6:27 AM CDT) [facility] Method Time Signature Hemoglobin 8.3 (L) 11.6 [...] Organization Address City/State/ZIP Code Phon e Number [facility] - [address] [place], [place] [address] [facility] [place] [address] [facility] 200 [facility] (ABNORMAL) Basic Metabolic Panel (2022 3:43 AM CDT) P athologist Signature Potassium, S 4.8 3.6 - 5.2 2022 DTL mmol/L 4:22 AM CDT Sodium, S 137 135 - 145 2022 DTL mmol/L 4:22 AM CDT Chloride, S 103 98 - 107 2022 DTL mmol/L 4:22 AM CDT Bicarbonate, S 27 22 - 29 2022 DTL mmol/L 4:22 AM CDT Anion Gap 7 7 - 15 2022 DTL 4:22 AM CDT BUN (Blood Urea 14 6 - 21 2022 DTL Nitrogen), S mg/dL 4:22 AM CDT Creatinine 0.78 0.59 - 2022 DTL 1.04 mg/dL 4:22 AM CDT Estimated GFR >90 >=60 2022 DTL (eGFR) mL/min/BSA 4:22 AM CDT Comment: Estimated GFR calculated using the 2020 CKD_EPI creatinine equation. Calcium, Total, S 8.5 (L) 8.6 - 10.0 mg/dL 2022 4:22 AM CDT DTL Glucose, S 96 70 - 140 mg/dL 2022 4:22 AM CDT D TL Specimen Anatomical Collection Method Collection Time Receive d Time (Source) Location / / Volume Laterality Blood (Blood, 2022 3:43 AM 03/17/20 4:08 Venous) CDT AM CDT Nazario Bailey APRN, C.N.P., D.N.P., M.S.N. LAB BLOOD AD D-ON Performing Organization Address City/State/[facility] Code Phon e Number [facility] - [address] [place] [address] 05 [facility] [place] [place] [address] [facility] 200 [facility] (ABNORMAL) CBC without Differential (2022 3:43 AM CDT) [facility] gist Method Time Signature Hemoglobin 7.3 (L) 11.6 - 2022 DTL 15.0 g/dL 4:03 AM CDT Hematocrit 24.1 (L) 35.5 - 2022 DTL 44.9 % 4:03 AM CDT Erythrocytes 2.61 (L) 3.92 - 2022 DTL 5.13 4:03 AM CDT x10(12)/L MCV 92.3 78.2 - 2022 DTL 97.9 fL 4:03 AM CDT RBC Distrib Width 19.3 (H) 12.2 - 2022 DTL 16.1 % 4:03 AM CDT Platelet Count 297 157 - 371 2022 DTL x10(9)/L 4:03 AM CDT Leukocytes 7.1 3.4 - 9.6 2022 DHPM x10(9)/L 4:55 AM CDT Comment: Corrected for normoblasts. Specimen Anatomical Collection Method Collection Time Receive d Time (Source) Location / / Volume Laterality Blood (Blood, 2022 3:43 AM 03/17/20 3:57 Venous) CDT AM CDT Ritesh Bustamante APRNNBrock, Haydee.N.P., M.S.N. LAB BLOOD AD D-ON Performing Organization Address City/[facility] Phon e Number [facility] - [address] [place], [place] [address] [place] [address] [place] [address] [address] Laboratories-[address] (ABNORMAL) Hepatic Function Panel (03/16/2022 1:22 PM CDT) [facility] Method Time Signature Bilirubin, Total, S 0.4 [...] PM 03/16/20 2:01 Venous) CDT PM CDT Ritesh Bustamante APRNNBrock, JuanN.P., M.S.N. LAB BLOOD AD D-ON Performing Organization Address City/[facility] Phon e Number [facility] - [address] [address] [facility] [address] [facility] (ABNORMAL) CBC without Differential (03/16/2022 1:22 PM CDT) [facility] Method Time Signature Hemoglobin 7.6 (L) 11.6 - 03/16/2022 DTL 15.0 g/dL 1:48 PM CDT Hematocrit 24.2 (L) 35.5 - 03/16/2022 DTL 44.9 % 1:48 PM CDT Erythrocytes 2.62 (L) 3.92 - 03/16/2022 DTL 5.13 1:48 PM CDT x10(12)/L MCV 92.4 78.2 - 03/16/2022 DTL 97.9 fL 1:48 PM CDT RBC Distrib Width 18.4 (H) 12.2 - 03/16/2022 DTL 16.1 % 1:48 PM CDT Platelet Count 260 157 - 371 03/16/2022 DTL x10(9)/L 1:48 PM CDT Leukocytes 12.4 (H) 3.4 - 9.6 03/16/2022 DTL x10(9)/L 2:55 PM CDT Comment: Corrected for normoblasts. Specimen Anatomical Collection Method Collection Time Receive d Time (Source) Location / / Volume Laterality Blood (Blood, 03/16/2022 1:22 PM 03/16/20 1:42 Venous) CDT PM CDT Vanda Bustamante APRN.N.P., Haydee.N.P., M.S.N. LAB BLOOD AD D-ON Performing Organization Address City/State/ZIP Code Phon e Number [facility] - [address] [place], [place] [address] [facility] [place] [address] [facility] 200 [facility] Transfuse Red Blood Cells : (03/16/2022 1:04 PM CDT) Vanda Bustamante APRN.N.P., Haydee.N.P., M.S.N. BLOOD TRANSF USION ORDERABLES Transfuse Red Blood Cells : , 1 Units (03/16/2022 1:04 PM CDT) Vanda Bustamante APRN.N.P., D.N.P., M.S.N. BLOOD TRANSF USION ORDERABLES (ABNORMAL) CBC without Differential (03/16/2022 9:04 AM CDT) [facility] Method Time Signature Hemoglobin 7.1 (L) 11.6 - 03/16/2022 DTL 15.0 g/dL 9:22 AM CDT Hematocrit 22.5 (L) 35.5 - 03/16/2022 DTL 44.9 % 9:22 AM CDT Erythrocytes 2.48 (L) 3.92 - 03/16/2022 DTL 5.13 9:22 AM CDT x10(12)/L MCV 90.7 78.2 - 03/16/2022 DTL 97.9 fL 9:22 AM CDT RBC Distrib Width 20.5 (H) 12.2 - 03/16/2022 DTL 16.1 % 9:22 AM CDT Platelet Count 261 157 - 371 03/16/2022 DTL x10(9)/L 10:03 AM CDT Leukocytes 13.2 (H) 3.4 - 9.6 03/16/2022 DTL x10(9)/L 10:03 AM CDT Comment: Corrected for normoblasts. Specimen Anatomical Collection Method Collection Time Receive d Time (Source) Location / / Volume Laterality Blood (Blood, 03/16/2022 9:04 AM 03/16/20 9:13 Venous) CDT AM CDT Vanda Bustamante APRN.N.P., Haydee.N.P., M.S.N. LAB BLOOD AD D-ON Performing Organization Address City/State/ZIP Code Phon e Number [facility] - [address] [place], [place] [address] [facility] [place] [address] Laboratories-[facility] [address] Type and Screen (with reflex Antibody ID) (03/16/2022 7:26 AM CDT) [facility] Method Time Signature ABORh A Pos Not 03/16/2022 ETRM applicable 8:10 AM CDT Antibody Negative Negative 03/16/2022 ETRM Screen 8:23 AM CDT Type & Screen 03/19/2022 03/16/2022 ETRM Expiration 23:59 8:10 AM CDT Testing Deidra DEFAULT 03/16/2022 ETRM Location 7:45 AM CDT Specimen Anatomical Collection Method Collection Time Receive d Time (Source) Location / / Volume Laterality Blood (Blood, 03/16/2022 7:26 AM 03/16/20 22 7:45 Venous) CDT AM CDT Vanda Bustamante APRN.N.P., D.N.P., M.S.N. LAB BLOOD BA NK TEST ORDERABLES Performing Organization Address [facility] Phon e Number [facility] [address] [place], [place] [address] 05 [facility] [place] [address] [facility] 200 [facility] (ABNORMAL) Thromboelastograph, Kaolin + Heparinase (03/16/2022 7:24 AM CDT) [facility] gist Method Time Signature R-Heparinase, 5.2 1.9 - 6.5 03/16/2022 METH TEG min 9:37 AM CDT K-Heparinase, 0.8 (L) 0.9 - 1.8 03/16/2022 METH TEG min 9:37 AM CDT Angle-Heparina 79.7 (H) 65.5 - 77.1 03/16/2022 METH se, TEG degrees 9:37 AM CDT MA-Heparinase, >90.0 (H) 58.2 - 76.2 03/16/2022 METH TEG mm 9:37 AM CDT [id number] 0.0 0.0 - 4.7 % 03/16/2022 METH e, TEG 9:37 AM CDT [id number] 0.0 0.0 - 15.0 03/16/2022 METH e, TEG % 9:37 AM CDT Specimen Anatomical Collection Method Collection Time Receive d Time (Source) Location / / Volume Laterality Blood (Blood, 03/16/2022 7:24 AM 03/16/20 22 7:29 Venous) CDT AM CDT Nazario Bailey APRN, C.N.P., D.N.P., M.S.N. LAB BLOOD NO N ADD-ON Performing Organization Address [facility] Code Phon e Number [facility] - [address] [place], [place] [address] [facility] [place] [address] Laboratories-[facility] 200 [facility] (ABNORMAL) Troponin T, 2H/6H, 5th Gen (03/16/2022 [...] AM CDT Comment: Result canceled by the elder yZahraa Specimen Anatomical Collection Method Collection Time Receive d Time (Source) Location / / Volume Laterality Blood (Blood, 03/16/2022 2:54 AM 03/16/20 3:17 Venous) CDT AM CDT Narrative [facility] - 03/16/2022 3:40 AM CDT Specimen Information: Specimen ID: [id number] Specimen Type: Blood Specimen Collection Start Date: ??2:54 AM Specimen Received Date: 03/16/2022 ??3:17 AM Specimen ID: [id number] Specimen Type: Blood Mason Ardon LAB BLOOD TROPONIN Performing Organization Address City/State/ZIP Code Phon e Number [facility] - [address] [place] [address] 05 [facility] [place] [address] Phosphorus Inorganic (03/16/2022 2:54 AM CDT) P athologist Signature Phosphorus 3.0 2.5 - 4.5 03/16/2022 DTL (Inorganic), S mg/dL 3:40 AM CDT Specimen Anatomical Collection Method Collection Time Receive d Time (Source) Location / / Volume Laterality Blood (Blood, 03/16/2022 2:54 AM 03/16/20 3:16 Venous) CDT AM CDT Aleyda Mcginnsi P.A.-C., M.S. LAB BLOOD ADD-ON Performing Organization Address City/State/ZIP [facility] Phon e Number [facility] - [address] [place], [place] [address] 05 [facility] [place] [id number] [address] (ABNORMAL) Magnesium (03/16/2022 2:54 AM CDT) P athologist Signature Magnesium, S 2.7 (H) 1.7 - 2.3 03/16/2022 DTL mg/dL 3:40 AM CDT Specimen Anatomical Collection Method Collection Time Receive d Time (Source) Location / / Volume Laterality Blood (Blood, 03/16/2022 2:54 AM 03/16/20 3:16 Venous) CDT AM CDT Aleyda Mcginnis P.A.-C., M.S. LAB BLOOD ADD-ON Performing Organization Address City/[facility] Phon e Number [facility] - [address] (ABNORMAL) CBC without Differential (03/16/2022 2:54 AM CDT) Patholo gist Method Time Signature Hemoglobin 6.3 (L) 11.6 - 03/16/2022 DTL 15.0 g/dL 3:07 AM CDT Hematocrit 20.1 (L) 35.5 - 03/16/2022 DTL 44.9 % 3:07 AM CDT Erythrocytes 2.22 (L) 3.92 - 03/16/2022 DTL 5.13 3:07 AM CDT x10(12)/L MCV 90.5 78.2 - 03/16/2022 DTL 97.9 fL 3:07 AM CDT RBC Distrib Width 20.6 (H) 12.2 - 03/16/2022 DTL 16.1 % 3:07 AM CDT Platelet Count 225 157 - 371 03/16/2022 DTL x10(9)/L 3:07 AM CDT Leukocytes 12.0 (H) 3.4 - 9.6 03/16/2022 DHPM x10(9)/L 4:06 AM CDT Comment: Corrected for normoblasts. Specimen Anatomical Collection Method Collection Time Receive d Time (Source) Location / / Volume Laterality Blood (Blood, 03/16/2022 2:54 AM 03/16/20 3:02 Venous) CDT AM CDT Aleyda Mcginnis P.A.-C. M.S. LAB BLOOD ADD-ON Performing Organization Address City/State/ZIP Code Phon e Number [facility] - [address] [place], [place] [address] [facility] [place] [address] [facility] [address] [place] [address] [facility] [address] (ABNORMAL) Basic Metabolic Panel (03/16/2022 2:54 AM CDT) athologist Signature Potassium, S 4.8 3.6 - 5.2 03/16/2022 DTL mmol/L 3:40 AM CDT Sodium, S 138 135 - 145 03/16/2022 DTL mmol/L 3:40 AM CDT Chloride, S 104 98 - 107 03/16/2022 DTL mmol/L 3:40 AM CDT Bicarbonate, S 28 22 - 29 03/16/2022 DTL mmol/L 3:40 AM CDT Anion Gap 6 (L) 7 - 15 03/16/2022 DTL 3:40 AM CDT BUN (Blood Urea 15 6 - 21 03/16/2022 DTL Nitrogen), S mg/dL 3:40 AM CDT Creatinine 0.90 0.59 - 03/16/2022 DTL 1.04 mg/dL 3:40 AM CDT Estimated GFR 76 >=60 03/16/2022 DTL (eGFR) mL/min/BSA 3:40 AM CDT Comment: Estimated GFR calculated using the 2020 CKD_EPI creatinine equation. Calcium, Total, S 8.4 (L) 8.6 - 10.0 mg/dL 03/16/2022 3:40 AM CDT DTL Glucose, S 102 70 - 140 mg/dL 03/16/2022 3:40 AM CDT D TL Specimen Anatomical Collection Method Collection Time Receive d Time (Source) Location / / Volume Laterality Blood (Blood, 03/16/2022 2:54 AM 03/16/20 3:16 Venous) CDT AM CDT Aleyda Mcginnis P.A.-C. M.S. LAB BLOOD ADD-ON Performing Organization Address City/State/ZIP Code Phon e Number [facility] - [address] [place], [place] [address] [facility] [place] [address] [facility] [address] DX Chest Portable 1 View (03/16/2022 12:21 [...] large pleural effusion or discernible pneumothorax. Mason Ardon IMG DIAGNOSTIC IMAGING PROCE DURES (ABNORMAL) SPSMA Result (03/15/2022 11:42 PM CDT) [facility] Method Time Signature Neutrophilic Segs 85 (H) 50 - 75 % 03/16/2022 DHPM and Bands 2:01 AM CDT Monocytes 7 2 - 11 % 03/16/2022 DHPM 2:01 AM CDT Basophils 2 0 - 2 % 03/16/2022 [facility] 2:01 AM CDT Metamyelocytes 2 (H) <1 % 03/16/2022 [facility] 2:01 AM CDT Myelocytes 4 (H) <0.5 % 03/16/2022 [facility] 2:01 AM CDT Nucleated RBC 174 /100 WBC 03/16/2022 [facility] 2:01 AM CDT Manual Absolute 9.95 (H) 1.56 - 03/16/2022 [facility] Neutrophil Count 6.45 2:01 AM CDT x10(9)/L [...] Organization Address City/State/ZIP Code Phon e Number [facility] - [address] [place], [place] [address] [place] [address] [facility] 200 [facility] (ABNORMAL) CBC with Differential, Blood (03/15/2022 11:42 PM CDT) [facility] Method Time Signature Hemoglobin 6.8 (L) 11.6 [...] Leukocytes 11.7 (H) 3.4 - 9.6 03/16/2022 [facility] x10(9)/L 2:01 AM CDT Comment: Corrected for normoblasts. Neutrophils SeeComment 1.56 - 6.45 x10(9)/L 03/16/2022 2:01 AM CDT [facility] Comment: Auto-diff results not valid. Se e manual differential. Specimen Anatomical Collection Method Collection Time Receive d Time (Source) Location / / Volume Laterality Blood (Blood, 03/15/2022 11:42 03/15/2022 Venous) PM CDT 11:47 PM CDT Mason ArringtonB.S. LAB BLOOD ADD-ON Performing Organization Address City/[facility]/ZIP [facility] Phon e Number [facility] - [address] [place], [place] [address] [facility] METH [place], [place] [id number] [place] [id number] [place] [address] (ABNORMAL) Troponin T, Baseline, 5th gen (03/15/2022 11:42 PM CDT) athologist Signature Troponin T, 13 (H) <=10 ng/L 03/16/2022 DT Baseline, 5th 12:33 AM CDT gen Specimen Anatomical Collection Method Collection Time Receive d Time (Source) Location / / Volume Laterality Blood (Blood, 03/15/2022 11:42 03/16/2022 Venous) PM CDT 12:10 AM CDT Mason ArringtonB.S. LAB BLOOD TROPONIN Performing Organization Address City/[facility]/ZIP Code Phon e Number [facility] - [address] [place], [place] [address] [place], [place] [id number] [place] [address] ECG 12 Lead (03/15/2022 11:26 PM CDT) P athologist Signature Ventricular Rate 82 BPM MUSE ECG/Min AL Interval 150 ms MUSE QRSD Interval 84 ms MUSE QT Interval 374 ms MUSE QTC Interval 436 ms MUSE P Crawford 15 degrees MUSE R Crawford 55 degrees MUSE T Wave Crawford 62 degrees MUSE Specimen Anatomical Collection Method [...] have changed Reviewed by REG Arguelles Mason Ardon ECG ORDERABLES Performing Organization Address City/State/ZIP Code Phon e Number MUSE MIGUEL ANGEL NA (ABNORMAL) CBC without Differential (03/15/2022 6:55 PM CDT) [facility] gist Method Time Signature Hemoglobin 7.1 (L) 11.6 - 03/15/2022 DTL 15.0 g/dL 7:07 PM CDT Hematocrit 22.3 (L) 35.5 - 03/15/2022 DTL 44.9 % 7:07 PM CDT Erythrocytes 2.48 (L) 3.92 - 03/15/2022 DTL 5.13 7:07 PM CDT x10(12)/L MCV 89.9 78.2 - 03/15/2022 DTL 97.9 fL 7:07 PM CDT RBC Distrib Width 20.0 (H) 12.2 - 03/15/2022 DTL 16.1 % 7:07 PM CDT Platelet Count 233 157 - 371 03/15/2022 DTL x10(9)/L 7:07 PM CDT Leukocytes 18.1 (H) 3.4 - 9.6 03/15/2022 DTL x10(9)/L 9:03 PM CDT Comment: Corrected for normoblasts. Specimen Anatomical Collection Method Collection Time Receive d Time (Source) Location / / Volume Laterality Blood (Blood, 03/15/2022 6:55 PM 03/15/20 22 7:02 Venous) CDT PM CDT Aleyda Mcginnis P.A.-C. M.S. LAB BLOOD ADD-ON Performing Organization Address City/[facility] Phon e Number [facility] - [address] (ABNORMAL) CBC without Differential (03/15/2022 8:19 AM CDT) [facility] Method Time Signature Hemoglobin 7.3 (L) 11.6 - 03/15/2022 DTL 15.0 g/dL 8:37 AM CDT Hematocrit 23.5 (L) 35.5 - 03/15/2022 DTL 44.9 % 8:37 AM CDT Erythrocytes 2.63 (L) 3.92 - 03/15/2022 DTL 5.13 8:37 AM CDT x10(12)/L MCV 89.4 78.2 - 03/15/2022 DTL 97.9 fL 8:37 AM CDT RBC Distrib Width 19.6 (H) 12.2 - 03/15/2022 DTL 16.1 % 8:37 AM CDT Platelet Count 220 157 - 371 03/15/2022 DTL x10(9)/L 8:37 AM CDT Leukocytes 18.5 (H) 3.4 - 9.6 03/15/2022 DTL x10(9)/L 9:25 AM CDT Comment: Corrected for normoblasts. Specimen Anatomical Collection Method Collection Time Receive d Time (Source) Location / / Volume Laterality Blood (Blood, 03/15/2022 8:19 AM 03/15/20 22 8:28 Venous) CDT AM CDT Hema Rothman M.D. LAB BLOOD ADD-ON Performing Organization Address City/[facility] Phon e Number [facility] - [address] (ABNORMAL) NT-Pro B-Type Natriuretic Peptide (BNP) (03/15/2022 4:33 AM CDT) athologist Signature NT-Pro BNP 2573 (H) <=141 pg/mL 03/15/2022 DTL 5:31 AM CDT Comment: NT-proBNP values less [...] AM 03/15/20 5:00 Venous) CDT AM CDT Rajani Clark APRN C.N.P., M.S.N. LAB BLOOD ADD-ON Performing Organization Address City/State/ZIP Code Phon e Number [facility] - [address] [place], [place] [address] [facility] [place] [address] [facility] [address] [facility] (ABNORMAL) Basic Metabolic Panel (03/15/2022 4:33 AM CDT) athologist [facility] Potassium, S 5.2 3.6 - 5.2 03/15/2022 DTL mmol/L 5:23 AM CDT Sodium, S 136 135 - 145 03/15/2022 DTL mmol/L 5:23 AM CDT Chloride, S 101 98 - 107 03/15/2022 DTL mmol/L 5:23 AM CDT Bicarbonate, S 25 22 - 29 03/15/2022 DTL mmol/L 5:23 AM CDT Anion Gap 10 7 - 15 03/15/2022 DTL 5:23 AM CDT BUN (Blood Urea 24 (H) 6 - 21 03/15/2022 DTL Nitrogen), S mg/dL 5:23 AM CDT Creatinine 1.02 0.59 - 03/15/2022 DTL 1.04 mg/dL 5:23 AM CDT Estimated GFR 66 >=60 03/15/2022 DTL (eGFR) mL/min/BSA 5:23 AM CDT Comment: Estimated GFR calculated using the 2020 CKD_EPI creatinine equation. Calcium, Total, S 8.2 (L) 8.6 - 10.0 mg/dL 03/15/2022 5:23 AM CDT DTL Glucose, S 120 70 - 140 mg/dL 03/15/2022 5:23 AM CDT D TL Specimen Anatomical Collection Method Collection Time Receive d Time (Source) Location / / Volume Laterality Blood (Blood, 03/15/2022 4:33 AM 03/15/20 4:59 Venous) CDT AM CDT Vanda Gavin APRN.N.P., M.S.N. LAB BLOOD ADD-ON Performing Organization Address City/State/ZIP Code Phon e Number [facility] - [address] [place] [address] [facility] [place] [address] [facility] 200 [facility] (ABNORMAL) CBC without Differential (03/15/2022 4:33 AM CDT) [facility] gist Method Time Signature Hemoglobin 7.2 (L) 11.6 - 03/15/2022 DTL 15.0 g/dL 4:47 AM CDT Hematocrit 22.1 (L) 35.5 - 03/15/2022 DTL 44.9 % 4:47 AM CDT Erythrocytes 2.50 (L) 3.92 - 03/15/2022 DTL 5.13 4:47 AM CDT x10(12)/L MCV 88.4 78.2 - 03/15/2022 DTL 97.9 fL 4:47 AM CDT RBC Distrib Width 19.3 (H) 12.2 - 03/15/2022 DTL 16.1 % 4:47 AM CDT Platelet Count 187 157 - 371 03/15/2022 DTL x10(9)/L 4:47 AM CDT Leukocytes 17.9 (H) 3.4 - 9.6 03/15/2022 DTL x10(9)/L 5:19 AM CDT Comment: Corrected for normoblasts. Specimen Anatomical Collection Method Collection Time Receive d Time (Source) Location / / Volume Laterality Blood (Blood, 03/15/2022 4:33 AM 03/15/20 4:42 Venous) CDT AM CDT Rajani Clark APRN, C.N.P., M.S.N. LAB BLOOD ADD-ON Performing Organization Address City/[facility] Phon e Number [facility] - [address] [place], [place] [address] [place] [id number] Laboratories-[address] Heparin Anti-Xa Assay (03/15/2022 4:33 AM CDT) P athologist Signature Heparin 0.12 IU/mL 03/15/2022 [...] LAB BLOOD NON ADD-ON Performing Organization Address City/[facility] Phon e Number [facility] - [address] [place], [place] [address] [place] [id number] Laboratories-[address] (ABNORMAL) Thromboelastograph, Kaolin, Blood (03/15/2022 4:32 AM CDT) Patholo gist Method Time Signature R, Kaolin, [...] AM 03/15/20 4:35 Venous) CDT AM CDT Vanda Garcia APRN.N.P., M.S.N. LAB BLOOD NON ADD-ON Performing Organization Address City/State/ZIP Code Phon e Number [facility] - [address] [place], [place] [address] [facility] [place] [address] Laboratories-[facility] 200 [facility] (ABNORMAL) Thromboelastograph, Kaolin + Heparinase (03/15/2022 4:32 AM CDT) [facility] gist Method Time Signature R-Heparinase, 6.3 1.9 - 6.5 03/15/2022 METH TEG min 7:03 AM CDT K-Heparinase, 1.0 0.9 - 1.8 03/15/2022 METH TEG min 7:03 AM CDT Angle-Heparina 74.8 65.5 - 77.1 03/15/2022 METH se, TEG degrees 7:03 AM CDT MA-Heparinase, 80.7 (H) 58.2 - 76.2 03/15/2022 METH TEG mm 7:03 AM CDT Lg37-Ycjihjzby 0.0 0.0 - 4.7 % 03/15/2022 METH e, TEG 7:03 AM CDT Wr55-Rxjrpbwnh 0.0 0.0 - 15.0 % 03/15/2022 METH e, TEG 7:03 AM CDT Specimen Anatomical Collection Method Collection Time Receive d Time (Source) Location / / Volume Laterality Blood 03/15/2022 4:32 AM 4:35 CDT AM CDT Rajani Clark APRN, C.N.P., M.S.N. LAB BLOOD NON ADD -ON Performing Organization Address City/State/ZIP Code Phon e Number [facility] - [address] [place], [place] [address] [facility] [place] [address] [facility] 200 [facility] (ABNORMAL) CBC without Differential (03/14/2022 7:58 PM CDT) [facility] gist Method Time Signature Hemoglobin 7.9 (L) 11.6 - 03/14/2022 DTL 15.0 g/dL 8:19 PM CDT Hematocrit 23.8 (L) 35.5 - 03/14/2022 DTL 44.9 % 8:19 PM CDT Erythrocytes 2.74 (L) 3.92 - 03/14/2022 DTL 5.13 8:19 PM CDT x10(12)/L MCV 86.9 78.2 - 03/14/2022 DTL 97.9 fL 8:19 PM CDT RBC Distrib Width 18.1 (H) 12.2 - 03/14/2022 DTL 16.1 % 8:19 PM CDT Platelet Count 164 157 - 371 03/14/2022 DTL x10(9)/L 9:08 PM CDT Leukocytes 19.1 (H) 3.4 - 9.6 03/14/2022 DTL x10(9)/L 9:08 PM CDT Comment: Corrected for normoblasts. Specimen Anatomical Collection Method Collection Time Receive d Time (Source) Location / / Volume Laterality Blood (Blood, 03/14/2022 7:58 PM 03/14/20 22 8:13 Venous) CDT PM CDT Rajani Clark APRN, C.N.P., M.S.N. LAB BLOOD ADD-ON Performing Organization Address City/State/ZIP Code Phon e Number [facility] - [address] [place], [place] [address] [facility] [place] [address] [facility] 200 [facility] Transfuse Red Blood Cells : (03/14/2022 5:01 PM CDT) Rajani Clark APRN, C.N.P., M.S.N. BLOOD TRANSFUSION ORDERABLES Transfuse Red Blood Cells : , 1 Units (03/14/2022 5:01 PM CDT) Rajani Clark APRN, C.N.P., M.S.N. BLOOD TRANSFUSION ORDERABLES (ABNORMAL) CBC without Differential (03/14/2022 11:57 AM CDT) Patholo gist Method Time Signature Hemoglobin 7.0 (L) 11.6 - 03/14/2022 DTL 15.0 g/dL 12:15 PM CDT Hematocrit 21.7 (L) 35.5 - 03/14/2022 DTL 44.9 % 12:15 PM CDT Erythrocytes 2.45 (L) 3.92 - 03/14/2022 DTL 5.13 12:15 PM CDT x10(12)/L MCV 88.6 78.2 - 03/14/2022 DTL 97.9 fL 12:15 PM CDT RBC Distrib Width 18.7 (H) 12.2 - 03/14/2022 DTL 16.1 % 12:15 PM CDT Platelet Count 143 (L) 157 - 371 03/14/2022 DTL x10(9)/L 12:48 PM CDT Leukocytes 20.7 (H) 3.4 - 9.6 03/14/2022 DTL x10(9)/L 12:48 PM CDT Comment: Corrected for normoblasts. Specimen Anatomical Collection Method Collection Time Receive d Time (Source) Location / / Volume Laterality Blood (Blood, 03/14/2022 11:57 03/14/2022 Venous) AM CDT 12:05 PM CDT Rajani Clark APRN, C.N.P., M.S.N. LAB BLOOD ADD-ON Performing Organization Address City/State/ZIP Code Phon e Number [facility] - [address] [place], [place] [address] [facility] [place] [place] [address] [facility] [address] Heparin Anti-Xa Assay (03/14/2022 11:57 AM CDT) athologist Signature Heparin 0.11 IU/mL 03/14/2022 DTL Anti-Xa, P 12:21 PM CDT Comment: UFH therapeutic range: ?? 0.30-0.70 [...] Location / / Volume Laterality Blood (Blood, 03/14/2022 11:57 03/14/2022 Venous) AM CDT 12:05 PM CDT Hema Rothman M.D. LAB BLOOD NON ADD-ON Performing Organization Address City/State/ZIP Code Phon e Number [facility] - [address] [place] [address] [facility] [place] [place] [address] [facility] [address] (ABNORMAL) Thromboelastograph, Kaolin + Heparinase (03/14/2022 9:00 AM CDT) [facility] gist Method Time Signature R-Heparinase, 4.3 1.9 - 6.5 03/14/2022 METH TEG min 10:28 AM CDT K-Heparinase, 1.1 0.9 - 1.8 03/14/2022 METH TEG min 10:28 AM CDT Angle-Heparina 74.6 65.5 - 77.1 03/14/2022 METH se, TEG degrees 10:28 AM CDT MA-Heparinase, 79.2 (H) 58.2 - 76.2 03/14/2022 METH TEG mm 10:28 AM CDT Zi92-Mcogzdyqz 0.0 0.0 - 4.7 % 03/14/2022 METH e, TEG 10:28 AM CDT Yf19-Aaliyblyb 0.0 0.0 - 15.0 % 03/14/2022 METH e, TEG 10:28 AM CDT Specimen Anatomical Collection Method Collection Time Receive d Time (Source) Location / / Volume Laterality Blood 03/14/2022 9:00 AM 9:03 CDT AM CDT Marjorie Ardon LAB BLOOD NON ADD-ON Performing Organization Address City/State/[facility] Code Phon e Number [facility] - [address] [place], [place] [address] [facility] [place] [address] [facility] 200 [facility] Heparin Anti-Xa Assay (03/14/2022 6:13 AM CDT) P athologist Signature Heparin 0.11 IU/mL 03/14/2022 DTL Anti-Xa, P 6:50 AM CDT Comment: UFH therapeutic range: ?? [...] Location / / Volume Laterality Blood (Blood, 03/14/2022 6:13 AM 03/14/20 6:22 Venous) CDT AM CDT Hema Rothman M.D. LAB BLOOD NON ADD-ON Performing Organization Address City/[facility] Code Phon e Number [facility] - [address] [place], [place] [address] [facility] [place] [address] Laboratories-[address] (ABNORMAL) CBC without Differential (03/14/2022 6:13 AM CDT) Patholo gist Method Time Signature Hemoglobin 7.5 (L) 11.6 - 03/14/2022 DTL 15.0 g/dL 6:34 AM CDT Hematocrit 22.7 (L) 35.5 - 03/14/2022 DTL 44.9 % 6:34 AM CDT Erythrocytes 2.59 (L) 3.92 - 03/14/2022 DTL 5.13 6:34 AM CDT x10(12)/L MCV 87.6 78.2 - 03/14/2022 DTL 97.9 fL 6:34 AM CDT RBC Distrib Width 17.7 (H) 12.2 - 03/14/2022 DTL 16.1 % 6:34 AM CDT Platelet Count 120 (L) 157 - 371 03/14/2022 DTL x10(9)/L 7:24 AM CDT Leukocytes 21.4 (H) 3.4 - 9.6 03/14/2022 DTL x10(9)/L 7:24 AM CDT Comment: Corrected for normoblasts. Specimen Anatomical Collection Method Collection Time Receive d Time (Source) Location / / Volume Laterality Blood (Blood, 03/14/2022 6:13 AM 03/14/20 6:22 Venous) CDT AM CDT Hema Rothman M.D. LAB BLOOD ADD-ON Performing Organization Address City/State/ZIP Code Phon e Number [facility] - [address] [place], [place] [address] [facility] [place] [address] [facility] [address] (ABNORMAL) Thromboelastograph, Kaolin + Heparinase (03/14/2022 6:11 AM CDT) [facility] Method Time Signature R-Heparinase, 4.2 1.9 - 6.5 03/14/2022 METH TEG min 8:17 AM CDT K-Heparinase, 1.1 0.9 - 1.8 03/14/2022 METH TEG min 8:17 AM CDT Angle-Heparina 75.1 65.5 - 77.1 03/14/2022 METH se, TEG degrees 8:17 AM CDT MA-Heparinase, 76.7 (H) 58.2 - 76.2 03/14/2022 METH TEG mm 8:17 AM CDT Xs90-Zbglrarrf 0.0 0.0 - 4.7 % 03/14/2022 METH e, TEG 8:17 AM CDT Yb27-Nmbcebeye CANCELED % 03/14/2022 METH e, TEG 8:17 AM CDT Comment: Unable to complete testing due to an ass ay/equipment issue. Result canceled by the ancillary. Specimen Anatomical Collection Method Collection Time Receive d Time (Source) Location / / Volume Laterality Blood (Blood, 03/14/2022 6:11 AM 03/14/20 22 6:17 Venous) CDT AM CDT Rosie Staples P.A.-C. M.S. LAB BLOOD NON ADD-ON Performing Organization Address City/[facility] Phon e Number [facility] - [address] [place] [address] [facility] METH [address] (ABNORMAL) pH (03/13/2022 5:00 PM CDT) P athologist Signature pH 7.28 (L) 7.35 - 7.45 03/13/2022 [facility] pH 5:13 PM CDT Specimen Anatomical Collection Method Collection Time Receive d Time (Source) Location / / Volume Laterality Blood 03/13/2022 5:00 PM 5:08 CDT PM CDT Leena Trujillo M.D. LAB HISTORICAL OR DERS Performing Organization Address City/[facility] Code Phon e Number [facility] - [address] [place] [address] 05 [facility] STMA [place] [id number] (ABNORMAL) Phosphorus Inorganic (03/13/2022 5:00 PM CDT) P athologist Signature Phosphorus 6.2 (H) 2.5 - 4.5 03/13/2022 DTL (Inorganic), S mg/dL 6:13 PM CDT Specimen Anatomical Collection Method Collection Time Receive d Time (Source) Location / / Volume Laterality Blood (Blood, 03/13/2022 5:00 PM 03/13/20 22 5:35 Venous) CDT PM CDT Leena Trujillo M.D. LAB BLOOD ADD-ON Performing Organization Address City/[facility]/ZIP [facility] Phon e Number [facility] - [address] [place] [address] 05 [facility] DTL [place] [address] (ABNORMAL) Magnesium (03/13/2022 5:00 PM CDT) P athologist Signature Magnesium, S 2.8 (H) 1.7 - 2.3 03/13/2022 DTL mg/dL 6:13 PM CDT Specimen Anatomical Collection Method Collection Time Receive d Time (Source) Location / / Volume Laterality Blood (Blood, 03/13/2022 5:00 PM 03/13/20 22 5:35 Venous) CDT PM CDT Leena Trujillo M.D. LAB BLOOD ADD-ON Performing Organization Address City/State/ZIP Code Phon e Number [facility] - [address] [place] [address] [facility] [place] [address] Laboratories-[address] (ABNORMAL) CBC without Differential (03/13/2022 5:00 PM CDT) Patholo gist Method Time Signature Hemoglobin 8.6 (L) 11.6 - 03/13/2022 STMA 15.0 g/dL 5:13 PM CDT Hematocrit 25.4 (L) 35.5 - 03/13/2022 STMA 44.9 % 5:13 PM CDT Erythrocytes 2.90 (L) 3.92 - 03/13/2022 STMA 5.13 5:13 PM CDT x10(12)/L MCV 87.6 78.2 - 03/13/2022 STMA 97.9 fL 5:13 PM CDT RBC Distrib Width 16.3 (H) 12.2 - 03/13/2022 STMA 16.1 % 5:13 PM CDT Platelet Count 58 (L) 157 - 371 03/13/2022 STMA x10(9)/L 5:41 PM CDT Leukocytes 23.7 (H) 3.4 - 9.6 03/13/2022 STMA x10(9)/L 6:42 PM CDT Comment: Corrected for normoblasts. Specimen Anatomical Collection Method Collection Time Receive d Time (Source) Location / / Volume Laterality Blood (Blood, 03/13/2022 5:00 PM 03/13/20 22 5:08 Venous) CDT PM CDT Leena Trujillo M.D. LAB BLOOD ADD-ON Performing Organization Address City/[facility] Phon e Number [facility] - [address] Calcium, Ionized (03/13/2022 5:00 PM CDT) P athologist Signature Calcium, 5.23 4.65 - 5.30 03/13/2022 [facility] Ion[facility], B mg/dL 5:13 PM CDT Specimen Anatomical Collection Method Collection Time Receive d Time (Source) Location / / Volume Laterality Blood (Blood, 03/13/2022 5:00 PM 03/13/20 5:08 Venous) CDT PM CDT Leena Trujillo M.D. LAB BLOOD NON ADD -ON Performing Organization Address [facility] Code Phon e Number [facility] - [address] [place] [address] Laboratories-[address] (ABNORMAL) Basic Metabolic Panel (03/13/2022 5:00 PM CDT) Analysis Performed At Patho logist Time Signature Potassium, P 5.0 3.6 - 5.2 03/13/2022 DTL mmol/L 6:03 PM CDT Sodium, P 138 135 - 145 03/13/2022 DTL mmol/L 6:03 PM CDT Chloride, P 105 98 - 107 03/13/2022 DTL mmol/L 6:03 PM CDT Bicarbonate, P 21 (L) 22 - 29 03/13/2022 DTL mmol/L 6:03 PM CDT Anion Gap, P 12 7 - 15 03/13/2022 DTL 6:03 PM CDT BUN (Blood Urea 34 (H) 6 - 21 03/13/2022 DTL Nitrogen), P mg/dL 6:03 PM CDT Creatinine 1.08 (H) 0.59 - 03/13/2022 DTL 1.04 mg/dL 6:03 PM CDT Estimated GFR 61 >=60 03/13/2022 DTL (eGFR) mL/min/BSA 6:03 PM CDT Comment: Estimated GFR calculated using the 2020 CKD_EPI creatinine equation. Calcium, Total, P 9.1 8.6 - 10.0 mg/dL 03/13/2022 6:03 PM CDT DTL Glucose, P 197 (H) 70 - 140 mg/dL 03/13/2022 6:03 PM CDT D TL Specimen Anatomical Collection Method Collection Time Receive d Time (Source) Location / / Volume Laterality Blood (Blood, 03/13/2022 5:00 PM 03/13/20 5:08 Venous) CDT PM CDT Leena Trujillo M.D. LAB BLOOD ADD-ON Performing Organization Address City/[facility] Phon e Number [facility] - [address] [place], [place] [address] [facility] [place] [place] [address] [facility] 200 [facility] (ABNORMAL) Thromboelastograph, Kaolin, Blood (03/13/2022 4:57 PM CDT) Analysis Performed At Patho logist Time Signature R, Kaolin, TEG 4.4 4.0 - 9.0 03/13/2022 ST[facility] min 6:10 PM CDT K, Kaolin, TEG 1.8 (H) 0.9 - 1.7 03/13/2022 ST[facility] min 6:10 PM CDT Angle, Kaolin, 67.0 66.2 - 80.3 03/13/2022 ST[facility] TEG degrees 6:10 PM CDT MA, Kaolin, 63.3 55.2 - 77.0 03/13/2022 [facility] TEG mm 6:10 PM CDT Ly30, Kaolin, 0.0 0.0 - 4.8 % 03/13/2022 STMA TEG 6:10 PM CDT Specimen Anatomical Collection Method Collection Time Receive d Time (Source) Location / / Volume Laterality Blood (Blood, 03/13/2022 4:57 PM 03/13/20 4:57 Venous) CDT PM CDT Leena Trujillo M.D. LAB BLOOD NON ADD -ON Performing Organization Address City/State/ZIP Code Phon e Number [facility] - [address] [place], [place] [address] [facility] [place] [address] [facility] [address] DX Chest 1 View (03/13/2022 4:05 PM [...] atelectasis. No pneumotho rax or effusion. Hema [facility] DIAGNOSTIC IMAGING PROCE DURES DX Abdomen 1 [...] Rothman M.D. IMG DIAGNOSTIC IMAGING PROCE DURES Patient Status (03/13/2022 3:10 PM CDT) P athologist Signature Temperature 36.7 37.0 deg C 03/13/2022 STMA 3:10 PM CDT FIO2 0.36 0.21=AIR 03/13/2022 STMA 3:10 PM CDT Specimen Anatomical Collection Method Collection Time Receive d Time (Source) Location / / Volume Laterality Blood 03/13/2022 3:10 PM 3:10 CDT PM CDT Cristian Ingram PARTS COUNTER SALESPERSON, [employer]CHANT PATRO[employer]ER LAB BLOOD NON ADD-ON Performing Organization Address City/State/ZIP Code Phon e Number [facility] - [address] [place] [address] 05 [place] [address] [facility] [address] (ABNORMAL) Lactate, B (03/13/2022 3:10 PM CDT) athologist Signature Lactate, B 3.0 (H) 0.5 - 2.2 03/13/2022 ST[facility] mmol/L 3:12 PM CDT Specimen Anatomical Collection Method Collection Time Receive d Time (Source) Location / / Volume Laterality Blood (Blood, 03/13/2022 3:10 PM 03/13/20 22 3:10 Venous) CDT PM CDT Aleyda Giron M.D. LAB BLOOD NON ADD-ON Performing Organization Address City/State/ZIP Code Phon e Number [facility] - [address] [place], [place] [address] [place] [address] [facility] [address] (ABNORMAL) Glucose, Whole Blood (03/13/2022 3:10 PM CDT) P athologist Signature Glucose 228 (H) 70 - 140 03/13/2022 STMA mg/dL 3:12 PM CDT Specimen Anatomical Collection Method Collection Time Receive d Time (Source) Location / / Volume Laterality Blood (Blood, 03/13/2022 3:10 PM 03/13/20 22 3:10 Arterial Line) CDT PM CDT Aleyda Giron M.D. LAB BLOOD TROPONIN Performing Organization Address City/State/ZIP Code Phon e Number [facility] - [address] [place], [place] [address] [facility] [place] [address] [place] [address] Potassium, Blood (03/13/2022 3:10 PM CDT) athologist Signature Potassium, B 4.5 3.6 - 5.2 03/13/2022 ST[facility] mmol/L 3:12 PM CDT Specimen Anatomical Collection Method Collection Time Receive d Time (Source) Location / / Volume Laterality Blood (Blood, 03/13/2022 3:10 PM 03/13/20 22 3:10 Arterial Line) CDT PM CDT Aleyda Giron M.D. LAB BLOOD NON ADD-ON Performing Organization Address City/[facility]/ZIP Code Phon e Number [facility] - [address] [place] [address] [facility] 200 [facility] Sodium, B (03/13/2022 3:10 PM CDT) athologist Signature Sodium, B 136 135 - 145 03/13/2022 3:12 ST[facility] mmol/L PM CDT Specimen Anatomical Collection Method Collection Time Receive d Time (Source) Location / / Volume Laterality Blood (Blood, 03/13/2022 3:10 PM 03/13/20 22 3:10 Arterial Line) CDT PM CDT Aleyda Giron M.D. LAB BLOOD NON ADD-ON Performing Organization Address City/[facility]/ZIP Code Phon e Number [facility] - [address] [place], [place] [address] [place] [address] [facility] [address] [facility] Calcium, Ionized (03/13/2022 3:10 PM CDT) athologist Signature Calcium, 5.13 4.65 - 5.30 03/13/2022 ST[facility] Ionized, B mg/dL 3:12 PM CDT Specimen Anatomical Collection Method Collection Time Receive d Time (Source) Location / / Volume Laterality Blood (Blood, 03/13/2022 3:10 PM 03/13/20 22 3:10 Arterial Line) CDT PM CDT Aleyda Giron M.D. LAB BLOOD NON ADD-ON Performing Organization Address City/State/ZIP Code Phon e Number [facility] - [address] [place], [place] [address] [place] [address] [address] (ABNORMAL) Blood Gas with Coox, Arterial (03/13/2022 3:10 PM CDT) P athologist Signature pO2 [id number] 83 - [...] Organization Address City/State/ZIP Code Phon e Number [facility] - [address] Leukemia/Lymphoma Immunophenotyping by Flow Cytometry, Tissue (03/13/2022 2:41 PM CDT) Component Value Ref Test Analysis Performed At Patholo gist Range Method Time Signature LLPT Result Performed 03/14/2022 DTL 3:31 PM CDT Final These results are considered preliminary and require complete integration 03/14/2022 DTL Diagnosis: with the current pathology c ase [id number] for final interpretation. ??The 3:31 PM CDT result should NOT be interpreted in isolation for the purp oses of diagnosis or clinical management. Spleen, specimen for flow cytometric analysis ([id number]): No monotypic B-cell population, phenotypically abnorma l [...] reagent. Its performance characteristics were determined by [facility] in a manner consistent with CLIA requirements. This test has not bee n cleared or approved by the U.S. Food and Drug Administration. Specimen Anatomical Collection Method Collection Time Receive d Time (Source) Location / / Volume Laterality Tissue 03/13/2022 2:41 PM 2 2:41 CDT PM CDT Narrative This result has an attachment that is no t available. Faye Landeros M.D. LAB GENETIC TESTING Performing Organization Address City/State/ZIP Code Phon e Number [facility] - [address] [place], [place] [address] [place] [address] [facility] 200 [facility] Patient Status (03/13/2022 2:13 PM CDT) P athologist Signature Temperature 36.7 37.0 deg C 03/13/2022 ST[facility] 2:13 PM CDT Specimen Anatomical Collection Method Collection Time Receive d Time (Source) Location / / Volume Laterality Blood 03/13/2022 2:13 PM 2:13 CDT PM CDT Memo Reyes PARTS COUNTER SALESPERSON, MERCHANT PATROLLER, MNA LAB BLOOD NON ADD-ON Performing Organization Address City/State/ZIP Code Phon e Number [facility] - [address] [place], [place] [address] [facility] [place] [address] [facility] [address] [facility] (ABNORMAL) CBC with Differential, Blood (03/13/2022 2:13 PM CDT) [facility] Method Time Signature Hemoglobin 7.4 (L) 11.6 - 03/13/2022 ST[facility] 15.0 g/dL 2:21 PM CDT Hematocrit 22.7 (L) 35.5 - 03/13/2022 ST[facility] 44.9 % 2:21 PM CDT Erythrocytes 2.45 (L) 3.92 - 03/13/2022 ST[facility] 5.13 2:21 PM CDT x10(12)/L MCV 92.7 78.2 - 03/13/2022 ST[facility] 97.9 fL 2:21 PM CDT RBC Distrib Width 17.7 (H) 12.2 - 03/13/2022 ST[facility] 16.1 % 2:21 PM CDT Platelet Count 66 (L) 157 - 371 03/13/2022 ST[facility] x10(9)/L 2:41 PM CDT Leukocytes 14.9 (H) 3.4 - 9.6 03/13/2022 [facility] x10(9)/L 2:41 PM CDT Neutrophils 11.46 (H) 1.56 - 03/13/2022 ST[facility] 6.45 2:41 PM CDT x10(9)/L Lymphocytes 0.96 0.95 - 03/13/2022 ST[facility] 3.07 2:41 PM CDT x10(9)/L Monocytes 1.95 (H) 0.26 - 03/13/2022 ST[facility] 0.81 2:41 PM CDT x10(9)/L Eosinophils 0.07 0.03 - 03/13/2022 ST[facility] 0.48 2:41 PM CDT x10(9)/L Basophils 0.42 (H) 0.01 - 03/13/2022 ST[facility] 0.08 2:41 PM CDT x10(9)/L Specimen Anatomical Collection Method Collection Time Receive d Time (Source) Location / / Volume Laterality Blood (Blood, 03/13/2022 2:13 PM 03/13/20 22 2:13 Arterial Line) CDT PM CDT Dena Coon M.D. LAB BLOOD ADD-ON Performing Organization Address City/[facility]/ZIP Code Phon e Number [facility] - [address] [place], [place] [address] [place] [address] [facility] [address] [facility] (ABNORMAL) Glucose, Whole Blood (03/13/2022 2:13 PM CDT) P athologist Signature Glucose 243 (H) 70 - 140 03/13/2022 ST[facility] mg/dL 2:16 PM CDT Specimen Anatomical Collection Method Collection Time Receive d Time (Source) Location / / Volume Laterality Blood (Blood, 03/13/2022 2:13 PM 03/13/20 22 2:13 Arterial Line) CDT PM CDT Dena Coon M.D. LAB BLOOD TROPONIN Performing Organization Address City/[facility]/ZIP Code Phon e Number [facility] - [address] [place], [place] [address] [place] [address] [facility] [address] [facility] Potassium, Blood (03/13/2022 2:13 PM CDT) P athologist Signature Potassium, B 4.2 3.6 - 5.2 03/13/2022 [facility] mmol/L 2:16 PM CDT Specimen Anatomical Collection Method Collection Time Receive d Time (Source) Location / / Volume Laterality Blood (Blood, 03/13/2022 2:13 PM 03/13/20 22 2:13 Arterial Line) CDT PM CDT Dena Coon M.D. LAB BLOOD NON ADD-ON Performing Organization Address City/State/ZIP Code Phon e Number [facility] - [address] [place], [place] [address] [facility] [place] [address] [facility] [address] Sodium, B (03/13/2022 2:13 PM CDT) athologist Signature Sodium, B 137 135 - 145 03/13/2022 2:16 ST[facility] mmol/L PM CDT Specimen Anatomical Collection Method Collection Time Receive d Time (Source) Location / / Volume Laterality Blood (Blood, 03/13/2022 2:13 PM 03/13/20 22 2:13 Arterial Line) CDT PM CDT Dena Coon M.D. LAB BLOOD NON ADD-ON Performing Organization Address City/State/[facility] Phon e Number [facility] - [address], [place] [address] [place] [address] Laboratories-[address] (ABNORMAL) Calcium, Ionized (03/13/2022 2:13 PM CDT) athologist Signature Calcium, 5.58 (H) 4.65 - 03/13/2022 STMA Ionized, B 5.30 mg/dL 2:16 PM CDT Specimen Anatomical Collection Method Collection Time Receive d Time (Source) Location / / Volume Laterality Blood (Blood, 03/13/2022 2:13 PM 03/13/20 22 2:13 Arterial Line) CDT PM CDT Dena Coon M.D. LAB BLOOD NON ADD-ON Performing Organization Address City/[facility] Phon e Number [facility] - [address], [place] [address] [place] [address] Laboratories-[address] (ABNORMAL) Blood Gas with Coox, Arterial (03/13/2022 2:13 PM CDT) athologist Signature pO2 335 (H) 83 - 108 03/13/2022 [facility] mm Hg 2:16 PM CDT pCO2 43 32 - 45 mm 03/13/2022 [facility] Hg 2:16 PM CDT pH 7.32 (L) 7.35 - 03/13/2022 [facility] 7.45 pH 2:16 PM CDT Base Excess -4 (L) -2 - 3 03/13/2022 [facility] mmol/L 2:16 PM CDT HCO3 22 22 - 26 03/13/2022 [facility] mmol/L 2:16 PM CDT Hemoglobin, B 7.3 (L) 11.6 - 03/13/2022 [facility] 15.0 g/dL 2:16 PM CDT O2Hb 96.8 94.0 - 03/13/2022 [facility] 98.0 % 2:16 PM CDT COHb 3.3 (H) <3.0 % 03/13/2022 [facility] 2:16 PM CDT MetHb <1.0 <1.5 % 03/13/2022 [facility] 2:16 PM CDT CtO2 10.8 (L) 18.0 - 03/13/2022 [facility] 21.0 vol % 2:16 PM CDT Specimen Anatomical Collection Method Collection Time Receive d Time (Source) Location / / Volume Laterality Blood (Blood, 03/13/2022 2:13 PM 03/13/20 2:13 Arterial Line) CDT PM CDT Dena Coon M.D. LAB BLOOD NON ADD-ON Performing Organization Address City/State/ZIP Code Phon e Number [facility] - [address] [place] [address] [address] [place] [address] Laboratories-[facility] 200 [facility] (ABNORMAL) Thromboelastograph, Kaolin, Blood (03/13/2022 2:12 PM CDT) [facility] Method Time Signature R, Kaolin, TEG 4.9 4.0 - 9.0 03/13/2022 [facility] min 3:16 PM CDT K, Kaolin, TEG 1.8 (H) 0.9 - 1.7 03/13/2022 [facility] min 3:16 PM CDT Angle, Kaolin, 66.1 (L) 66.2 - 80.3 03/13/2022 [facility] TEG degrees 3:16 PM CDT MA, Kaolin, 62.6 55.2 - 77.0 03/13/2022 [facility] TEG mm 3:16 PM CDT Ly30, Kaolin, 0.0 0.0 - 4.8 % 03/13/2022 [facility] TEG 3:16 PM CDT Specimen Anatomical Collection Method Collection Time Receive d Time (Source) Location / / Volume Laterality Blood (Blood, 03/13/2022 2:12 PM 03/13/20 22 2:12 Arterial Line) CDT PM CDT Dena Coon M.D. LAB BLOOD NON ADD-ON Performing Organization Address City/State/ZIP Code Phon e Number [facility] - [address] [place], [place] [address] [address] [place] [address] [facility] [address] [facility] Surgical Pathology, Frozen Lab (03/13/2022 1:46 PM CDT) Component Value Ref Test Analysis Performed Pathologis t Range Method Time At Signature 03/19/2022 [facility] 4:43 PM CDT Report Sonia Boone M.D. 03/19/2022 [facility] electronically 4:43 PM signed by CDT I [...] homogenous. ??Hilar lymph nodes are not identified. ??Hearing Examiner tissue submitted for permanent sections. ??Grossed by BRIAN Junior ([place])([facility] . Block Summary [facility] Possible hemangioma - 1 4:43 PM A2 Possible hemangioma - 2 CDT A3 Hearing Examiner infarcts - 1 A4 Hearing Examiner infarcts - 2 A5 Hearing Examiner infarcts - 3 A6 Additional sections of spleen - 1 A7 Additional sections of spleen - 2 A8 Additional sections of spleen - 3 A9 Additional sections of spleen - 4 A10 Additional sections of spleen - 5 Disclaimer This test was developed using an analyte specific reag ent. 03/19/2022 [facility] Its performance characteristics were determined by [place] 4:43 PM [facility] in a manner consistent with CLIA requirements. This CDT test has not been cleared or approved by the U.S. Food and Drug Administration. Interpretation FINAL DIAGNOSIS 03/19/2022 [facility] 4:43 PM A. ??Spleen, splenectomy: Atypical extramedullary [...] LAB SURG PATH ORDERABLES Performing Organization Address City/State/[facility] Code Phon e Number [facility] - [address] [place], [place] [address] [address] [place] [address] Laboratories-[facility] [address] Transfuse Red Blood Cells : (03/13/2022 1:45 PM CDT) Dena Coon M.D. BLOOD TRANSFUSION ORDERABLES Transfuse Red Blood Cells : , 4 Units (03/13/2022 1:45 PM CDT) Dena Coon M.D. BLOOD TRANSFUSION ORDERABLES Transfuse Red Blood Cells : (03/13/2022 1:44 PM CDT) Dena Coon M.D. BLOOD TRANSFUSION ORDERABLES Transfuse Red Blood Cells : (03/13/2022 1:43 PM CDT) Dena Coon M.D. BLOOD TRANSFUSION ORDERABLES (ABNORMAL) Calcium, Ionized (03/13/2022 1:24 PM CDT) athologist Signature Calcium, 4.58 (L) 4.65 - 03/13/2022 [facility] Ionized, B 5.30 mg/dL 1:26 PM CDT Specimen Anatomical Collection Method Collection Time Receive d Time (Source) Location / / Volume Laterality Blood (Blood, 03/13/2022 1:24 PM 03/13/20 1:24 Arterial Line) CDT PM CDT Dena Coon M.D. LAB BLOOD NON ADD-ON Performing Organization Address City/State/[facility] Code Phon e Number [facility] - [address] [place] [address] [address] [place] [address] [facility] 200 [facility] (ABNORMAL) Blood Gas with Coox, Arterial (03/13/2022 1:24 PM CDT) athologist Signature pO2 60 (L) 83 - 108 03/13/2022 [facility] mm Hg 1:26 PM CDT pCO2 45 32 - 45 mm 03/13/2022 [facility] Hg 1:26 PM CDT pH 7.37 7.35 - 03/13/2022 [facility] 7.45 pH 1:26 PM CDT Base Excess 0 -2 - 3 03/13/2022 [facility] mmol/L 1:26 PM CDT HCO3 26 22 - 26 03/13/2022 [facility] mmol/L 1:26 PM CDT Hemoglobin, B 7.4 (L) 11.6 - 03/13/2022 [facility] 15.0 g/dL 1:26 PM CDT O2Hb 86.6 (L) 94.0 - 03/13/2022 [facility] 98.0 % 1:26 PM CDT COHb 5.2 (H) <3.0 % 03/13/2022 [facility] 1:26 PM CDT MetHb <1.0 <1.5 % 03/13/2022 [facility] 1:26 PM CDT CtO2 9.1 (L) 18.0 - 03/13/2022 [facility] 21.0 vol % 1:26 PM CDT Specimen Anatomical Collection Method Collection Time Receive d Time (Source) Location / / Volume Laterality Blood (Blood, 03/13/2022 1:24 PM 03/13/20 1:24 Arterial Line) CDT PM CDT Dena Coon M.D. LAB BLOOD NON ADD-ON Performing Organization Address City/[facility] Phon e Number [facility] - [id number] [place] [address] Patient Status (03/13/2022 12:20 PM CDT) P athologist Signature Temperature 36.6 37.0 deg C 03/13/2022 [facility] 12:20 PM CDT FIO2 0.51 0.21=AIR 03/13/2022 [facility] 12:20 PM CDT Specimen Anatomical Collection Method Collection Time Receive d Time (Source) Location / / Volume Laterality Blood 03/13/2022 12:20 03/13/2022 PM CDT 12:20 PM CDT Memo Reyes PARTS COUNTER SALESPERSON, MERCHANT PATROLLER, MNA LAB BLOOD NON ADD-ON Performing Organization Address City/[facility] Phon e Number [facility] - [address] [place] [address] (ABNORMAL) Blood Gas with Coox, Arterial (03/13/2022 12:20 PM CDT) P athologist Signature pO2 75 (L) 83 - 108 03/13/2022 [facility] mm Hg 12:23 PM CDT pCO2 47 (H) 32 - 45 mm 03/13/2022 [facility] Hg 12:23 PM CDT pH 7.36 7.35 - 03/13/2022 [facility] 7.45 pH 12:23 PM CDT Base Excess 1 -2 - 3 03/13/2022 [facility] mmol/L 12:23 PM CDT HCO3 26 22 - 26 03/13/2022 [facility] mmol/L 12:23 PM CDT Hemoglobin, B 7.9 (L) 11.6 - 03/13/2022 [facility] 15.0 g/dL 12:23 PM CDT O2Hb 90.7 (L) 94.0 - 03/13/2022 [facility] 98.0 % 12:23 PM CDT COHb 5.4 (H) <3.0 % 03/13/2022 [facility] 12:23 PM CDT MetHb <1.0 <1.5 % 03/13/2022 [facility] 12:23 PM CDT CtO2 10.3 (L) 18.0 - 03/13/2022 [facility] 21.0 vol % 12:23 PM CDT Specimen Anatomical Collection Method Collection Time Receive d Time (Source) Location / / Volume Laterality Blood (Blood, 03/13/2022 12:20 03/13/2022 Arterial Line) PM CDT 12:20 PM CDT Dena Coon M.D. LAB BLOOD NON ADD-ON Performing Organization Address City/[facility] Code Phon e Number [address] Transfuse Platelets : (03/13/2022 12:04 PM CDT) Dena Coon M.D. BLOOD TRANSFUSION ORDERABLES Patient Status (03/13/2022 11:13 AM CDT) athologist Signature FIO2 0.60 0.21=AIR 03/13/2022 11:14 [facility] AM CDT Specimen Anatomical Collection Method Collection Time Receive d Time (Source) Location / / Volume Laterality Blood 03/13/2022 11:13 03/13/2022 AM CDT 11:13 AM CDT Memo Reyes PARTS COUNTER SALESPERSON, MERCHANT PATROLLER, MNA LAB BLOOD NON ADD-ON Performing Organization Address City/[facility] Phon e Number [address] Glucose, Whole Blood (03/13/2022 11:13 AM CDT) athologist Signature Glucose 102 70 - 140 03/13/2022 [facility] mg/dL 11:16 AM CDT Specimen Anatomical Collection Method Collection Time Receive d Time (Source) Location / / Volume Laterality Blood (Blood, 03/13/2022 11:13 03/13/2022 Arterial Line) AM CDT 11:13 AM CDT Dena Coon M.D. LAB BLOOD TROPONIN Performing Organization Address City/State/ZIP Code Phon e Number [facility] - [address] [place], [place] [address] [facility] [place] [address] [facility] [address] [facility] Potassium, Blood (03/13/2022 11:13 AM CDT) athologist Signature Potassium, B 4.9 3.6 - 5.2 03/13/2022 [facility] mmol/L 11:16 AM CDT Specimen Anatomical Collection Method Collection Time Receive d Time (Source) Location / / Volume Laterality Blood (Blood, 03/13/2022 11:13 03/13/2022 Arterial Line) AM CDT 11:13 AM CDT Dena Coon M.D. LAB BLOOD NON ADD-ON Performing Organization Address City/State/ZIP Code Phon e Number [facility] - [address] [place], [place] [address] [facility] [place] [address] [facility] [address] [facility] Sodium, B (03/13/2022 11:13 AM CDT) athologist Signature Sodium, B 139 135 - 145 03/13/2022 [facility] mmol/L 11:16 AM CDT Specimen Anatomical Collection Method Collection Time Receive d Time (Source) Location / / Volume Laterality Blood (Blood, 03/13/2022 11:13 03/13/2022 Arterial Line) AM CDT 11:13 AM CDT Dena Coon M.D. LAB BLOOD NON ADD-ON Performing Organization Address City/State/ZIP Code Phon e Number [facility] - [address] [place], [place] [address] [facility] [place] [address] [facility] [address] Calcium, Ionized (03/13/2022 11:13 AM CDT) athologist Signature Calcium, 4.68 4.65 - 5.30 03/13/2022 [facility] Ionized, B mg/dL 11:16 AM CDT Specimen Anatomical Collection Method Collection Time Receive d Time (Source) Location / / Volume Laterality Blood (Blood, 03/13/2022 11:13 03/13/2022 Arterial Line) AM CDT 11:13 AM CDT Dena Coon M.D. LAB BLOOD NON ADD-ON Performing Organization Address City/State/ZIP Code Phon e Number [facility] - [address] [place], [place] [address] [facility] [place] [address] [facility] 200 [facility] (ABNORMAL) Blood Gas with Coox, Arterial (03/13/2022 11:13 AM CDT) P athologist Signature pO2 80 (L) 83 - 108 03/13/2022 [facility] mm Hg 11:16 AM CDT pCO2 45 32 - 45 mm 03/13/2022 [facility] Hg 11:16 AM CDT pH 7.40 7.35 - 03/13/2022 [facility] 7.45 pH 11:16 AM CDT Base Excess 3 -2 - 3 03/13/2022 [facility] mmol/L 11:16 AM CDT HCO3 28 (H) 22 - 26 03/13/2022 [facility] mmol/L 11:16 AM CDT Hemoglobin, B 6.8 (L) 11.6 - 03/13/2022 [facility] 15.0 g/dL 11:16 AM CDT O2Hb 90.6 (L) 94.0 - 03/13/2022 [facility] 98.0 % 11:16 AM CDT COHb 6.4 (H) <3.0 % 03/13/2022 [facility] 11:16 AM CDT MetHb 1.0 <1.5 % 03/13/2022 [facility] 11:16 AM CDT CtO2 8.8 (L) 18.0 - 03/13/2022 [facility] 21.0 vol % 11:16 AM CDT Specimen Anatomical Collection Method Collection Time Receive d Time (Source) Location / / Volume Laterality Blood (Blood, 03/13/2022 11:13 03/13/2022 Arterial Line) AM CDT 11:13 AM CDT Dena Coon M.D. LAB BLOOD NON ADD-ON Performing Organization Address City/State/ZIP Code Phon e Number [facility] - [address] [place], [place] [address] [place] [address] [facility] [address] [facility] (ABNORMAL) Prothrombin Time (PT) (03/13/2022 11:12 AM CDT) Patholo gist Method Time Signature Prothrombin 13.1 (H) 9.4 - 12.5 03/13/2022 [facility] Time, P sec 11:26 AM CDT INR 1.2 0.9 - 1.1 03/13/2022 [facility] 11:26 AM CDT Comment: ----ADDITIONAL INFORMATION---- Standard intensity [...] Organization Address City/State/ZIP Code Phon e Number [facility] - [address] [address] [facility] [address] [facility] Fibrinogen (03/13/2022 11:12 AM CDT) P athologist Signature Fibrinogen, P 340 200 - 393 03/13/2022 [facility] mg/dL 11:25 AM CDT Specimen Anatomical Collection Method Collection Time Receive d Time (Source) Location / / Volume Laterality Blood (Blood, 03/13/2022 11:12 03/13/2022 Arterial Line) AM CDT 11:12 AM CDT Dena Coon M.D. LAB BLOOD ADD-ON Performing Organization Address City/State/ZIP Code Phon e Number [facility] - [address] [place], [place] [address] [facility] [place] [address] Laboratories-[place] [address] [address] [facility] APTT (Activated Partial Thromboplastin Time) (03/13/2022 11:12 [...] Organization Address City/State/ZIP Code Phon e Number [facility] - [address] [place], [place] [address] [address] [place] [address] [facility] [address] Transfuse Red Blood Cells : (03/13/2022 9:17 AM CDT) Dena Coon M.D. 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 Do not use if given in last 6 hours, Restriction Criteria (Pharmacy will review and approve if criteria met): Unable to take or tolerate medications administered via the enteral route or orally (not just NPO) acetaminophen tablet 1,000 mg (TYLENOL) Given 03/13/2022 7:17 AM CDT 1,000 mg 1,000 mg, oral, Once, On Fri03/13/22 at 0645, For 1 dose, Pre-Op, Speech Therapist Early Intervention, PreOp with sips acetaminophen tablet 1,000 mg (TYLENOL) Given 03/18/2022 4:25 AM CDT 1,000 mg 1,000 mg, oral, Every 6 hours, First dose on Fri03/13/22 at 2300, Not to exceed 4 grams in 24 hours. Given 2022 10:47 PM CDT 1,000 mg Given 2022 4:10 PM CDT 1,000 mg allopurinoL tablet 300 mg (ZYLOPRIM) Given 03/18/2022 8:00 AM CDT 300 mg 300 mg, oral, Daily, First dose on Fri03/14/22 at 0900 Given 2022 8:39 AM CDT 300 mg Given 03/16/2022 8:05 AM CDT 300 mg benzonatate capsule 100 mg (TESSALON PER LES) 100 mg, oral, 3 times daily PRN, cough, Starting on 03/16/22 at 2138, Swallow whole. Do NOT crush, chew or open capsule. calcium acetate(phosphat bind) capsule Given 03/18/2022 7:54 AM CDT 1,334 mg 1,334 mg (PHOSLO) 1,334 mg, oral, 3 times daily with meals, First dose on Fri03/14/22 at 0800, 667 mg calcium acetate contains 169 mg of elemental calcium Given 2022 4:10 PM CDT 1,334 mg Given 2022 11:37 AM CDT 1,334 mg cyclobenzaprine tablet 5 mg (FLEXERIL) Given 2022 9:05 PM CDT 5 mg 5 mg, oral, 3 times daily PRN, muscle spasms, Starting on Fri03/15/22 at 0926 Given 2022 5:41 AM CDT 5 mg Given 03/16/2022 9:37 PM CDT 5 mg enoxaparin injection 40 mg Given 03/15/2022 8:32 PM CDT 40 mg Right Upper Arm (LOVENOX) (Back) 40 mg, subcutaneous, 2 times daily, First dose on Fri03/15/22 at 2100 enoxaparin injection 60 mg Given 03/16/2022 9:10 PM CDT 60 mg Right Upper Arm (LOVENOX) (Back) 60 mg, subcutaneous, 2 times daily, First dose on Fri03/16/22 at 0900 Given 03/16/2022 8:57 AM CDT 60 mg Left Upper Arm (Back) enoxaparin injection 80 mg Given 03/18/2022 8:00 AM CDT 80 mg Right Upper Arm (LOVENOX) (Back) 80 mg, subcutaneous, 2 times daily, First dose (after last modification) on Fri03/17/22 at 0900 Given 2022 8:08 PM CDT 80 mg Left Upper Arm (Back) Given 2022 8:39 AM CDT 80 mg Right Upper Arm (Back) enoxaparin injection 90 mg (LOVENOX) 90 mg, subcutaneous, 2 times daily, First dose (after last modification) on Fri03/18/22 at 2100 fentaNYL injection 25 mcg (SUBLIMAZE) Given 03/13/2022 7:01 PM CDT 25 mcg 25 mcg, intravenous, Every 2 min PRN, For pain 6 or greater (maximum 100 mcg). If max dose of Fentanyl is reached and if pain is greater than 6, discontinue Fentanyl: give Hydromorphone, Starting on Fri03/13/22 at 1633, PACU (only) Given 03/13/2022 6:24 PM CDT 25 mcg Given 03/13/2022 5:43 PM CDT 25 mcg furosemide injection 20 mg (LASIX) Given 03/14/2022 4:47 PM CDT 20 mg 20 mg, intravenous, Once, On Aruna 03/14/22 at 1345, For 1 dose, >>GIVE AFTER blood infused. Adults: Doses less than 120 mg: IV push over 20 mg/minute. Doses 120 mg or greater: IVPB at 4 mg/minute. Peds/Neonates: Doses less than 120 mg over 0.5 mg/kg/minute. Doses 120 mg or greater: IVPB at 4 mg/minute. furosemide injection 20 mg (LASIX) Given 03/15/2022 9:52 AM CDT 20 mg 20 mg, intravenous, Once, On Fri03/15/22 at 0900, For 1 dose, Adults: Doses less than 120 mg: IV push over 20 mg/minute. Doses 120 mg or greater: IVPB at 4 mg/minute. Peds/Neonates: Doses less than 120 mg over 0.5 mg/kg/minute. Doses 120 mg or greater: IVPB at 4 mg/minute. furosemide injection 20 mg (LASIX) Given 03/16/2022 12:14 PM CDT 20 mg 20 mg, intravenous, Once, On 03/16/22 at 1145, For 1 dose, After blood transfusion Adults: Doses less than 120 mg: IV push over 20 mg/minute. Doses 120 mg or greater: IVPB at 4 mg/minute. Peds/Neonates: Doses less than 120 mg over 0.5 mg/kg/minute. Doses 120 mg or greater: IVPB at 4 mg/minute. heparin (porcine) 100 New Bag 03/15/2022 1:19 PM CDT 6 Units/kg/hr 5.62 mL/hr Units/mL in NaCl 0.45% 250 mL infusion 0-40 Units/kg/hr ? 93.6 kg Dosing weight (0-37.44 mL/hr), intravenous, Continuous, Starting on Fri03/13/22 at 2030, 25,000 Units in 250 mL, Intensity type: Very Low, Starting Dose (units/kg/hr): 6, Loading Dose: 0, Anti-Xa < 0.1: Adjust Dose (Units/kg/hr) by: 1, Anti-Xa < 0.1: Repeat anti-Xa: 6 hours, Anti-Xa 0.1-0.3: Adjust Dose (Units/kg/hr) by: 0, Anti-Xa 0.1-0.3: Repeat anti-Xa: 6 hours. If two consecutive therapeutic result, re-check next AM., Anti-Xa 0.31-0.4: Adjust Dose (Units/kg/hr) by: -1, Anti-Xa 0.31-0.4: Repeat anti-Xa: 6 hours, Anti-Xa 0.41-0.5: Hold Infusion: Stop infusion for 1 hour, Anti-Xa 0.41-0.5: Adjust Dose (Units/kg/hr) by: -1, Anti-Xa 0.41-0.5: Repeat anti-Xa: 6 hours after Heparin resumed, Anti-Xa 0.51-0.7: Hold Infusion: Stop infusion for 1 hour, Anti-Xa 0.51-0.7: Adjust Dose (Units/kg/hr) by: -2, Anti-Xa 0.51-0.7: Repeat anti-Xa: 6 hours after Heparin resumed, Anti-Xa >= 0.71: Hold Infusion: Stop infusion for 2 hours, Anti-Xa >= 0.71: Adjust Dose (Units/kg/hr) by: -4, Anti-Xa >= 0.71: Repeat anti-Xa: 6 hours after Heparin resumed Rate/Dose Verify 03/15/2022 8:00 AM CDT 6 Units/kg/hr 5.62 mL/hr Rate/Dose Change 03/15/2022 5:37 AM CDT 6 Units/kg/hr 5.62 mL/hr HYDROmorphone (PF) injection 0.2 mg Given 03/13/2022 7:19 PM CDT 0.2 mg (DILAUDID) 0.2 mg, intravenous, Every 10 min PRN, severe pain or score 7-10 of 10, Starting on Fri03/13/22 at 1633, For 3 doses, PACU (only), Up to maximum total dose of 2 mg HYDROmorphone (PF) injection 0.2 mg Given 03/16/2022 9:10 PM CDT 0.2 mg (DILAUDID) 0.2 mg, intravenous, Every 2 hour PRN, severe pain or score 7-10 of 10, Starting on 03/16/22 at 1141 Given 03/16/2022 5:52 PM CDT 0.2 mg HYDROmorphone (PF) injection 0.4 mg Given 03/14/2022 5:45 PM CDT 0.4 mg (DILAUDID) 0.4 mg, intravenous, Every 2 hour PRN, severe pain or score 7-10 of 10, breakthrough pain, Starting on Fri03/13/22 at 2103, For breakthrough pain unrelieved 30 minutes after PRN oral pain medication is used; or if unable to take oral pain medication. Given 03/14/2022 2:12 PM CDT 0.4 mg Given 03/14/2022 3:25 AM CDT 0.4 mg HYDROmorphone-0.9% NaCl 1 mg/mL SATELLITE DISH INSTALLER Rate/Dose Verify 03/15/2022 11:32 PM CDT (DILAUDID) Loading Dose: 0.4 mg, SATELLITE DISH INSTALLER Dose: 0.4 mg, Lockout: 10 Minutes, Continuous Rate: 0 mg/hr, Four Hour Limit: 8 mg, intravenous, Continuous Infusion: Per Instructions PRN, pain, Starting on Aruna 03/14/22 at 1825, RN to manage. NOTE: Loading Dose: If on initiation of the order set, respiratory rate is 10 breaths/minute or greater and patient rates pain 5 or greater (on appropriate pain scale) and greater than comfort goal, give the opioid loading dose that corresponds to the start level for opioid selected above. May repeat loading dose once after 10 minutes if patient remains at 5 or greater and greater than comfort goal and respiratory rate is 10 breaths/minute or greater. cartridge: 30 mg in 30 mL, Level 1: SATELLITE DISH INSTALLER dose: 0.2 mg, Lockout 10 minutes, Four Hour Limit: 4 mg, Level 2: SATELLITE DISH INSTALLER dose: 0.4 mg, Lockout: 10 minutes, Four Hour Limit: 8 mg, Level 3: SATELLITE DISH INSTALLER dose: 0.6 mg, Lockout: 10 minutes, Four Hour Limit: 12 mg, For relieved pain: decrease SATELLITE DISH INSTALLER to the next level and reassess in 2 hours if ALL of the following apply: Pain score is less than 4 or patient is at comfort goal AND patient is using 10 or less SATELLITE DISH INSTALLER doses per 4 hour period., For unrelieved pain: increase SATELLITE DISH INSTALLER to the next level if available and if ALL apply: Pain is >/= 4 AND > comfort goal AND respiratory rate is 10 breaths/min or greater AND RASS is -1, 0, +1, or +2 AND oxygen saturation is > 90% AND pt has been at current SATELLITE DISH INSTALLER level for 1 hr. New Syringe/Cartridge 03/14/2022 7:18 PM CDT ipratropium-albuteroL 0.5-2.5 mg/3 mL ne bulizer solution 3 mL (DUONEB) 3 mL, nebulization, 4 times daily PRN, w heezing, shortness of breath, Starting on Fri03/15/22 at 2306 lactated ringers Rate/Dose Verify 03/16/2022 8:11 AM CDT 20 mL/hr 20 mL/hr 20 mL/hr, intravenous, Continuous, Starting on Fri03/13/22 at 2015 Rate/Dose Verify 03/15/2022 7:00 PM CDT 20 mL/hr 20 mL/hr Rate/Dose Verify 03/15/2022 1:19 PM CDT 20 mL/hr 20 mL/hr menthol lozenge 1 lozenge Given 03/16/2022 10:40 PM CDT 1 lozenge 1 lozenge, oral, As needed, sore throat, Itchy throat, Starting on 03/16/22 at 2137 morphine ER tablet 15 mg (MS CONTIN) Given 2022 8:08 PM CDT 15 mg 15 mg, oral, Daily at bedtime, First dose on Fri03/13/22 at 2100, Swallow whole. Do NOT crush, chew, or split tablet. Given 03/16/2022 8:58 PM CDT 15 mg Given 03/15/2022 8:32 PM CDT 15 mg morphine ER tablet 60 mg (MS CONTIN) Given 03/18/2022 8:00 AM CDT 60 mg 60 mg, oral, 2 times daily, First dose on Fri03/13/22 at 2100, Swallow whole. Do NOT crush, chew, or split tablet. Given 2022 8:08 PM CDT 60 mg Given 2022 8:39 AM CDT 60 mg naloxone injection 0.1 mg (NARCAN) 0.1 mg, intravenous, Every 5 min PRN, respiratory depr ession, Starting on Aruna 03/14/22 at 1824, For 3 doses, For RASS Sc ore -4 or less, respiratory rate of less than 8 breaths/min. Notify provider/serv ice and rapid response team (if available at institution). ondansetron (PF) injection 4 mg (ZOFRAN) Given 03/14/2022 11:03 PM CDT 4 mg 4 mg, intravenous, Every 6 hours PRN, nausea, vomiting, Starting on Fri03/13/22 at 2013, For 48 hours, Reassess for nausea or vomiting after at least 10 minutes. If nausea or vomiting persists administer next ordered antiemetic medications (order for antiemetic medication administration ondansetron then droperidol then promethazine). Given 03/14/2022 8:42 AM CDT 4 mg Given 03/13/2022 11:27 PM CDT 4 mg ondansetron (PF) injection 4 mg (ZOFRAN) Given 03/13/2022 4:20 PM CDT 4 mg 4 mg, intravenous, Once, On Fri03/13/22 at 1615, For 1 dose, PACU (only) ondansetron (PF) injection 4 mg (ZOFRAN) Given 03/16/2022 5:13 PM CDT 4 mg 4 mg, intravenous, Every 6 hours PRN, nausea, vomiting, Starting on Fri03/15/22 at 0857, Reassess for nausea or vomiting after at least 10 minutes. If nausea or vomiting persists administer next ordered antiemetic medications (order for antiemetic medication administration ondansetron then droperidol then promethazine). Given 03/15/2022 11:08 PM CDT 4 mg oxyCODONE IR tablet 10 mg (ROXICODONE) Given 03/14/2022 9:28 AM CDT 10 mg 10 mg, oral, Every 4 hours PRN, severe pain or score 7-10 of 10, Starting on Fri03/13/22 at 2013 Given 03/14/2022 5:15 AM CDT 10 mg Given 03/14/2022 1:05 AM CDT 10 mg oxyCODONE IR tablet 10 mg (ROXICODONE) Given 03/14/2022 4:47 PM CDT 10 mg 10 mg, oral, Every 3 hours PRN, severe pain or score 7-10 of 10, Starting on Fri03/14/22 at 1145 Given 03/14/2022 12:53 PM CDT 10 mg oxyCODONE IR tablet 10 mg (ROXICODONE) Given 03/18/2022 7:53 AM CDT 10 mg 10 mg, oral, Every 3 hours PRN, moderate pain or score 4-6 of 10, Starting on Fri03/14/22 at 1823 Given 03/18/2022 4:26 AM CDT 10 mg Given 2022 9:03 PM CDT 10 mg oxyCODONE IR tablet 15 mg (ROXICODONE) Given 03/18/2022 1:00 AM CDT 15 mg 15 mg, oral, Every 3 hours PRN, severe pain or score 7-10 of 10, Starting on Fri03/14/22 at 1823 Given 2022 2:36 PM CDT 15 mg Given 03/16/2022 10:36 PM CDT 15 mg oxyCODONE IR tablet 5 mg (ROXICODONE) Given 03/14/2022 6:51 PM CDT 5 mg 5 mg, oral, Once, On Fri03/14/22 at 1845, For 1 dose polyethylene glycol powder packet 1 packet Given 03/15 8:16 AM CDT 1 packet (MIRALAX) 1 packet, oral, Daily PRN, constipation, Starting on Fri03/13/22 at 2013, Ordered sequence of administration: polyethylene glycol, then bisacodyl until BM achieved. Avoid mixing with starch-based thickened liquids., Indications: constipation promethazine injection 6.25 mg (PHENERGA N) Given 03/14/2022 3:31 AM CDT 6.25 mg 6.25 mg, intravenous, Every 6 hours PRN, nausea, vomiting, Starting on Fri03/13/22 at 2013, For 48 hours, RASS must be -2 or higher to administer. Reassess for nausea/vomiting after at least 10 minutes. If nausea or vomiting persists administer next ordered antiemetic medications (order for antiemetic medication administration ondansetron then droperidol then promethazine). promethazine injection 6.25 mg (PHENERGA N) 6.25 mg, intravenous, Every 6 hours PRN, nausea, vomiting, Starting on Fri03/15/22 at 0857, RASS must be -2 or higher to administer. Reas sess for nausea/vomiting after at least 10 minutes. If nausea or vomiting persists administer next ordered antiemetic medications (order for antiem etic medication administration ondansetron then droperidol then promethazine). sennosides-docusate sodium 8.6-50 mg per Given 2022 8: 08 PM CDT 2 tablets tablet 2 tablet (SENOKOT-S) 2 tablet, oral, 2 times daily, First dose (after last modification) on Fri03/14/22 at 0900, for constipation Given 2022 8:39 AM CDT 2 tablets Given 03/16/2022 8:57 PM CDT 2 tablets documented in this encounter Active and Recently Administered Medications Times are shown in CDT. Scheduled Medication Order 03/16/2022 2022 03/18/2022 acetaminophen tablet 1,000 mg (TYLENOL) 0506 (Given - Provider: Yvette Lopez R.N.)1107 (Given - Provider: Sherron Puente R.N.)6293 (Given - Provider: Sherron Puente R.N.)2236 (Given - Provider: Candice Wing RZahraaNZahraa) 0540 (Given - Provider: Shira Anand R.N.)1137 (Given - Provider: Sherron Puente R.N.)1610 (Given - Provider: Sherron Puente R.N.)2247 (Given - Provider: Shira Anand R.N.) 0425 (Given - Provider: Shira Anand R.N.) 1,000 mg, oral, Every 6 hours, First dos e on Fri03/13/22 at 2300, Not to exceed 4 grams in 24 hours. allopurinoL tablet 300 mg (ZYLOPRIM) 0805 (Given - Pro vider: Sherron Puente R.N.) 0839 (Given - Provider: Sherron Puente R.N.) 0800 (Gi karishma - Provider: Sherron Puente R.N.) 300 mg, oral, Daily, First dose on Fri03/14/22 at 0900 calcium acetate(phosphat bind) capsule 1,334 mg (PHOSL O) 0805 (Not Given - Provider: Sherron Puente R.N. - Reason: Patient/family refused)1107 (Given - Provider: Sherron Puente R.N.)1710 (Given - Provider: Sherron Puente R.N.) 0839 (Given - Provider: Sherron Puente R.N.)1137 (Given - Provider: Sherron Puente R.N.)1610 (Given - Provider: Sherron Puente R.N.) 0754 (Given - Provider: Sherron Puente R.N.) 1,334 mg, oral, 3 times daily with meals , First dose on Aruna 03/14/22 at 0800, 667 mg calcium acetate contains 169 mg of elemental calcium enoxaparin injection 60 mg (LOVENOX) (CANCELED) 0857 ( Given - Provider: Sherron Puente R.N.)2110 (Given - Provider: Nirmal ChNZahraa) 60 mg, subcutaneous, 2 times daily, First dose on Fri03/16/22 at 0900 enoxaparin injection 80 mg (LOVENOX) (CANCELED) 0839 (Given - Provider: Sherron Puente R.N.)2007 (Given - Provider: Shira Anand R.N.) 08 (Given - Provider: Sherron Puente R.N.) 80 mg, subcutaneous, 2 times daily, Firs t dose (after last modification) on 03/17/22 at 0900 enoxaparin injection 90 mg (LOVENOX) 90 mg, subcutaneous, 2 times daily, Firs t dose (after last modification) on 03/18/22 at 2100 furosemide injection 20 mg (LASIX) (COMPLETED) 1214 (G iven - Provider: Sherron Puente R.N.) 20 mg, intravenous, Once, On 03/16/22 at 1145, For 1 dose, After blood transfusion Adults: Doses less than 120 mg: IV push over 20 mg/minute. Doses 120 mg or greater: IVPB at 4 mg/minute. Peds/ s: Doses less than 120 mg over 0.5 mg/kg /minute. Doses 120 mg or greater: IVPB at 4 mg/minute. morphine ER tablet 15 mg (MS CONTIN) 2057 (Given - Pro vider: Candice Wing R.N.) 2007 (Given - Provider: Shira Anand R.N.) 15 mg, oral, Daily at bedtime, First dos e on Fri03/13/22 at 2100, Swallow whole. Do NOT crush, chew, or split tablet. morphine ER tablet 60 mg (MS CONTIN) 803 (Given - Pro vider: Sherron Puente R.N.)2057 (Given - Provider: Candice Wing R.N.) 0839 (Given - Provider: Sherron Puente R.N.)2007 (Given - Provider: Shira Anand R.N.) 08 (Given - Provider: Sherron Puente R.N.) 60 mg, oral, 2 times daily, First dose o n Fri03/13/22 at 2100, Swallow whole. Do NOT crush, chew, or split tablet. sennosides-docusate sodium 8.6-50 mg per tablet 2 tabl et (SENOKOT-S) 0805 (Given - Provider: Sherron Puente R.N.)2056 (Given - Provider: Candice Wing R.N.) 0839 (Given - Provider: Sherron Puente R.N.)2007 (Given - Provider: Shira Anand R.N.) 0800 (Not Given - Provider: Sherron Gomez ms, R.N. - Reason: Patient/family refused) 2 tablet, oral, 2 times daily, First dos e (after last modification) on Aruna 03/14/22 at 0900, for constipation Continuous Medication Order 03/16/2022 2022 03/18/2022 lactated ringers (CANCELED) 0811 (Rate/Dose Verify - P rovider: Sherron Puente R.N.)1155 (Stopped - Provider: Sherron Puente R.N.) 20 mL/hr, intravenous, Continuous, Starting on Fri03/13/22 at 20 15 PRN Medication Order 03/16/2022 2022 03/18/2022 benzonatate capsule 100 mg (TESSALON PERLES) 100 mg, oral, 3 times daily PRN, cough, Starting on 03/16/22 at 2138, Swallow whole. Do NOT crush, chew or open capsule. cyclobenzaprine tablet 5 mg (FLEXERIL) 2136 (Given - P rovider: Shira Anand R.N.) 0541 (Given - Provider: Shira Anand R.N. - Comment: very faint barcode)2104 (Given - Provider: Shira Anand R.N.) 5 mg, oral, 3 times daily PRN, muscle spasms, Starting on 09/04 at 0926 HYDROmorphone (PF) injection 0.2 mg (DILAUDID) 1752 (G iven - Provider: Sherron Puente R.N.)211 (Given - Provider: Candice Wing R.N.) 0.2 mg, intravenous, Every 2 hour PRN, s evere pain or score 7-10 of 10, Starting on 03/16/22 at 1141 ipratropium-albuteroL 0.5-2.5 mg/3 mL nebulizer solution 3 mL (D UONEB) 3 mL, nebulization, 4 times daily PRN, w heezing, shortness of breath, Starting on Fri03/15/22 at 2306 menthol lozenge 1 lozenge 2240 (Given - Provider: Candice thakkar RZahraaNZahraa) 1 lozenge, oral, As needed, sore throat, Itchy throat, Starting on 03/16/22 at 2137 naloxone injection 0.1 mg (NARCAN) 0.1 mg, intravenous, Every 5 min PRN, re spiratory depression, Starting on Aruna 03/14/22 at 1824, For 3 doses, For RASS Score -4 or less, respiratory rate of less than 8 breaths/min. Notify provider/service and rapid response team (if available at institution). naloxone injection 0.2 mg (NARCAN) 0.2 mg, intravenous, As needed, respirat ory depression, Starting on Fri03/13/22 at 2015, For RASS Score -4 or less, respiratory rate of less than 8 breaths/min. Notify provider/service and rapid response team (if available at institution). ondansetron (PF) injection 4 mg (ZOFRAN) 1713 (Given - Provider: Sherron Puente R.N.) 4 mg, intravenous, Every 6 hours PRN, na usea, vomiting, Starting on 03/15/22 at 0857, Reassess for nausea or vomiting after at least 10 minutes. If nausea or vomiting persists administer next ordered antiemetic medications (order for antiem etic medication administration ondansetron then droperidol then promethazine). oxyCODONE IR tablet 10 mg (ROXICODONE)(Linked Group 1) 1214 (Given - Provider: Sherron Puente R.N.)1526 (See Alternative - Provider: Sherron Puente R.N.)1932 (See Alternative - Provider: Candice Wing RZahraaNZahraa)2236 (See Alternative - Provider: Candice Wing R.N.) 0230 (Given - Provider: Shira Anand R.N.)0839 (Given - Provider: Sherron Puente R.N.)1137 (Given - Provider: Sherron Puente R.N.)1436 (See Alternative - Provider: Sherron Puente R.N.)1752 (Given - Provider: Sherron Puente R.N.) 0100 (See Alternative - Provider: Shira Anand R.N.)0426 (Given - Provider: Shira Anand R.N.)0753 (Given - Provider: Sherron Puente R.N.) 10 mg, oral, Every 3 hours PRN, moderate pain or score 4-6 of 10, Starting on Fri03/14/22 at 1823 2103 (Given - Provider: Shira Anand R.N.) oxyCODONE IR tablet 15 mg (ROXICODONE)(Linked Group 1) 1214 (See Alternative - Provider: Sherron Puente R.N.)1526 (Given - Provider: Sherron Puente R.N.)1932 (Given - Provider: Candice Wing R.N.)2236 (Given - Provider: Candice Wing R.N.) 0230 (See Alternative - Provider: Shira Anand R.N.)0839 (See Alternative - Provider: Sherron Puente R.N.)1137 (See Alternative - Provider: Sherron Puente R.N.)1436 (Given - Provider: Sherron Puente R.N.) 0100 (Given - Provider: Shira Anand R.N.)0426 (See Alternative - Provider: Shira Anand R.N.)0753 (See Alternative - Provider: Sherron Puente R.N.) 15 mg, oral, Every 3 hours PRN, severe p ain or score 7-10 of 10, Starting on Fri03/14/22 at 1823 1752 (See Alternative - Prov ider: Sherron Puente R.N.)2103 (See Alternative - Provider: Shira Anand R.N.) polyethylene glycol powder packet 1 packet (MIRALAX) 1 packet, oral, Daily PRN, constipation, Starting on Fri03/13/22 at 2013, Ordered sequence of administration: polyethylene glycol, then bisacodyl until BM achieved. Avoid mixing with starch-based thickened liquids., Indications: constipation promethazine injection 6.25 mg (PHENERGAN) 6.25 mg, intravenous, Every 6 hours PRN, nausea, vomiting, Starting on Fri03/15/22 at 0857, RASS must be -2 or higher to administer. Reassess for nausea/vomiting after at least 10 minutes. If nausea or v omiting persists administer next ordered antiemetic medications (order for antiemetic medication administration ondansetron then droperidol then promethazine). Linked Groups Order Group 1: oxyCODONE IR tablet 10 mg (ROXICODONE)Jump to med 10 mg, oral, Every 3 hours PRN, moderate pain or score 4-6 of 10, Starting on Aruna 03/14/22 at 1823 Or oxyCODONE IR tablet 15 mg (ROXICODONE)Jump to med 15 mg, oral, Every 3 hours PRN, severe p ain or score 7-10 of 10, Starting on Aruna 03/14/22 at 1823 documented in this encounter Care Teams Carpet Measurer Relationship Specialty Start Date End Date Elsewhere, Pcp PCP - General 11/04/21 documented as of this encounter
--- OUTSIDE RECORDS SUMMARY | 2022-05-02 12:02 | XMS_ITS | Encounter Summary ---
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 documented in this encounter Results Non-Radiology Image-Anesthesiology Image Exam (03/13/2022 8:30 AM [...] Organization Address City/State/ZIP Code Phon e Number IIMS IIMS NA documented in this encounter Visit Diagnoses Not on filedocumented in this encounter Care Teams Forge Tender Relationship Specialty Start Date End Date Elsewhere, Pcp PCP - General 11/04/21 documented as of this encounter
--- OUTSIDE RECORDS SUMMARY | 2022-05-02 12:03 | XMS_ITS | Encounter Summary ---
:1970 Author Organization [facility] Address [address] [place] [address] Care Team Providers Name Role Phone Elsewhere, Pcp Primary Care Provider Unavailable Reason for Referral Outpatient (Routine) - Closed Specialty Diagnoses / Referred By Contact Referred To Contact Procedures Radiology / Diagnoses Splenomegaly Acquired Myelofibrosis Primary (HCC) Hema Rothman, [facility] Interventional Radiology [place] [address] [place] [id number] Referral ID Status Reason Start Date Expiration Date Visits Requ ested Visits Authorized [id number] Closed 02/27/2022 02/27/2023 1 1 Encounter Details Date Type Department Care Team Description 02/27/2022 Orders Only Department of Hindal, Amanda Joel, Splenome alfonzo Acquired (Primary Dx); Radiology in [place] Myelofibrosis Primary (HCC) [place], [place] [address] [facility] [address] [place] [phone] Social History Tobacco Use Types Packs/Day Years Used Date Smoking Tobacco: Former Smokeless Tobacco: Never Comments: still smokes marijuana Alcohol Use Standard Drinks/Week Comments Not Currently 0 (1 standard drink = 0.6 oz pure alcoho l) Alcohol Habits Answer Date Recorded How often do you have a drink containing alcohol? Never 02/16/2021 How many drinks containing alcohol do you have on a typical Not asked day when you are drinking? How often do you have six or more drinks on one occasion? 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
--- OUTSIDE RECORDS SUMMARY | 2022-05-02 12:03 | XMS_ITS | Encounter Summary ---
:[address] 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 - 02/27/2022 1:46 PM CDT I received a request from Dr. Rothman to schedule Jennifer Dobbs for a Splenic Artery Embolization. The patient is scheduled to undergo the procedure at [facility] with Dr. Rodrigez on 03/13/22. PLAN: The patient is scheduled for a VIR LENNY visit on 03/12/22. 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 Dr. Rothman's team to notify the patient of these appointments. Labs: 02/13/22,which may be reviewed in the patient's EMR. ECG: Will be done in the PAR. documented in 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 Care Teams Strike Planning Applications Relationship Specialty Start Date End Date Elsewhere, Pcp PCP - General 11/04/21 documented as of this encounter
--- OUTSIDE RECORDS SUMMARY | 2022-05-02 12:03 | XMS_ITS | Encounter Summary ---
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 The fax has been scanned into the patient record via [employer], and the CBC results are as noted below. Hemoglobin: 6.8 Hematocrit: 21.9 WBC: 3.00 ANC: 1.80 Platelets: 64 Please note: Are there additional labs reported on the outside report? Yes Telephone Encounter - Mary Ann Shaver RShirin. - 03/04/2022 2:32 PM CDT Looks like you spoke with her spouse earlier today. I did not get a cbc yet, will forward to you when we received them. Cintia Carr Telephone Encounter - Jocelyne Bales - 03/04/2022 1:54 PM CDT Images from the original note were not included. [facility] faxing results for labs collected on 03/04/2022. Fax has been sent to scanning. documented in 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 Care Teams Metal Tester Relationship Specialty Start Date End Date Elsewhere, Pcp PCP - General 11/04/21 documented as of this encounter
--- OUTSIDE RECORDS SUMMARY | 2022-05-02 12:03 | XMS_ITS | Encounter Summary ---
:1970 Author Organization [facility] Address [address] [place] [id number] Care Team Providers Name Role Phone Elsewhere, Pcp Primary Care Provider Unavailable Reason for Visit Reason Comments Consult Outpatient (Routine) - Closed Specialty Diagnoses / Referred By Contact Referred To Contact Procedures Radiology / Diagnoses Splenomegaly Acquired Myelofibrosis Primary (HCC) Hema Rothman, [facility] Interventional Radiology M.DZahraa [address] [place] [id number] Referral ID Status Reason Start Date Expiration Date Visits Requ ested Visits Authorized [id number] Closed 02/27/2022 02/27/2023 1 1 Encounter Details Date Type Department Care Team Description 03/12/2022 Comprehensive Visit Department of Wanda Muniz Acquired (Primary Dx); Radiology, Dora Herndon APRN, C.N.P., Pancytop enia (HCC); [facility], in M.S.N. Myelofibrosis Primary (HCC); [place], [address] [place] [address] Anemia Of Chronic [place], [place] [address] [place] [id number] [place], [place] [phone] (Work) [phone] Social History Tobacco Use Types Packs/Day Years [...] at Date Recorded Female 07/24/2021 11:03 AM [employer] documented as of this encounter Last Filed Vital Signs Vital Sign Reading Time Taken Comments Blood Pressure 124/71 03/12/2022 10:46 AM CDT Pulse 111 03/12/2022 10:46 AM CDT Temperature 36.4 ??C (97.5 ??F) 03/12/2022 10:46 AM CDT Respiratory Rate 20 03/12/2022 10:46 AM CDT Oxygen Saturation 96% 03/12/2022 10:46 AM CDT Inhaled Oxygen Concentration - - Weight - - Height - - Body Mass Index - - documented in this encounter Consult Notes Wanda Muniz APRN, C.N.P., M.S.N. - 03/12/2022 11:00 AM CDT SUBJECTIVE REASON FOR CONSULT Referring Provider: Hema Rothman M.D. Chief Complaint/Reason for Consult: Consult HISTORY OF PRESENT ILLNESS Ms. Dobbs is a 51 y.o. female who has a pertinent past medical history myelofibrosis, splenomegaly,and transfusion dependent anemia. Based on medical record she has been requiring 2 units of red blood cell transfusions every other week. Her last hemoglobin was checked on March 04 at an outside facility and was 6.8 g/dL with a platelet count of 64. She did have 1 unit of packed red blood cells infused on March 05. Her labs will be recheck prior to procedure. Due to her symptomatic splenomegaly and transfusion dependent anemia it has been determined that she would benefit from a splenectomy. She would benefit from a splenic artery embolization prior to splenectomy to decrease her perioperative complications. Ms. Dobbs endorses early satiety, intermittent nausea, right-sided abdominal pain that radiates to the flank, bloating, and tenderness over the spleen. She does note to the size of her spleen she has difficulty laying on her back as this can constrict her breathing. She also notes when she bends overthis can also be difficult to breathe as there is pressure on her diaphragm. The following portions of the patient's history were reviewed and updated as appropriate: past medical history, allergies and current medications. REVIEW OF SYSTEMS Pertinent items noted in HPI, all other review of systems are negative OBJECTIVE Vitals: 03/12/22 1046 BP: 124/71 Pulse: (!) 111 Temp: 36.4 ??C Resp: 20 SpO2: 96% PHYSICAL EXAMINATION Constitutional Appearance: Normal appearance. She is obese. Pulmonary Effort: Pulmonary effort is normal. Musculoskeletal Right lower leg: No edema. Left lower leg: No edema. Skin Coloration: Skin is pale. Neurological Mental Status: She is alert. Psychiatric Mood and Affect: Mood normal. DIAGNOSTICS Lab Results Component Value Date/Time HGB 6.5 (L) 03/12/2022 08:55 AM HGB 5.7 (LL) 04/14/2021 02:04 PM HGB 4.5 (LL) 07/16/2019 10:08 AM HCT 21.7 (L) 03/12/2022 08:55 AM HCT 19.0 (L) 02/16/2021 09:33 AM HCT 15.8 (L) 07/16/2019 10:08 AM PLT 53 (L) 03/12/2022 08:55 AM PLT 93 (L) 07/16/2019 10:08 AM LEUKOCYTES Negative 02/16/2021 09:37 AM INR 1.3 06/07/2021 05:47 AM INR 1.4 06/06/2021 01:28 PM APTT 34 06/06/2021 01:28 PM , Lab Results Component Value Date/Time ALBUMIN 4.7 02/13/2022 04:01 PM ALBUMIN 4.0 11/09/2018 04:47 PM ALKPHOS 41 02/13/2022 04:01 PM ALKPHOS 41 11/09/2018 04:47 PM ALT 30 02/13/2022 04:01 PM AST 33 02/13/2022 04:01 PM AST 23 11/09/2018 04:47 PM AST 22 12/25/2016 10:05 AM BILIDIR 0.4 (H) 06/07/2021 05:29 AM BILITOT 1.1 02/13/2022 04:01 PM BILITOT 1.2 11/09/2018 04:47 PM BUN 34 (H) 02/13/2022 04:01 PM BUN 33 (H) 06/06/2021 01:28 PM CREATININE 1.14 (H) 02/13/2022 04:01 PM CREATININE 1.01 06/06/2021 01:28 PM EGFRNONBLKAA 55 (L) 02/13/2022 04:01 PM EGFRNONBLKAA >60 12/25/2016 10:05 AM Ultrasound spleen February 13, 2022: FINDINGS: Spleen: Splenomegaly. Spleen length: Approximately 30.0 cm. 1 cm and 0.6 cm echogenic lesions likely reflect hemangiomas. ASSESSMENT / PLAN #1 Splenomegaly Acquired #2 Pancytopenia (HCC) #3 Myelofibrosis Primary (HCC) #4 Anemia Of Chronic Disease Ms. Dobbs is scheduled to undergo splenic artery embolization in [facility] on 03/13/[address] Rodrigez. Patient presents today to discuss full details of the procedure to include risks, benefits and alternatives. Immediately following procedure she will be transported over to the preoperative area for Dr. Rothman to undergo splenectomy. Procedure explained in a stepwise fashion. Our anesthesia colleagues will be assisting with sedation. Access will be obtained from the femoral artery after which specialty wires and catheters will be maneuvered to access the splenic artery. From there embolization of the splenic artery will occur which could include item such as particles, glue, and or coils. At the end of procedure all specialty catheters and wires will be removed. She will require 2-4 hours of bedrest postprocedure. She will be admitted to Dr. Rothman service postprocedure for at least overnight observation. She had lab tests today showing a hemoglobin of 6.5 g/dL and a platelet count 53. Given her chronically low hemoglobin levels and platelet counts will be ideal have blood transfused as closed procedures possible. I have ordered for 1 unit of irradiated packed red blood cells to be infused in the preoperative area tomorrow morning. Plan was discussed with Dr. Rodrigez. Discussed the following preoperative instructions: - Nothing to eat after midnight - Can consume clear liquids such as water or black coffee until two hours prior to procedure - Patient should not take over the counter medications or torsemide morning of procedure - Report time instructions discussed - Written informed consent was electronically signed in clinic today - Patient to follow-up with Dr. Rothman as instructed For any questions or concerns regarding this patient please page Vascular Interventional Radiology [facility]/PA at [phone] Friday through Friday 7 a.m. to 5 p.m. or Vascular Interventional Radiology on-callresident at [phone] after 5 p.m. and on weekends. I personally spent over half of a total of 40 minutes face to face with patient in counseling and discussion and/or coordination of care as described above. documented in this encounter Plan of Treatment Not on filedocumented as of this encounter Visit Diagnoses Diagnosis Splenomegaly Acquired - Primary Pancytopenia (HCC) Myelofibrosis Primary (HCC) Anemia Of Chronic Disease documented in this encounter Additional Health Concerns Infection Onset Date Last Indicated Resolved Time COVID19 Pending 03/12/2022 03/12/2022 03/12/2022 3:02 PM CDT documented as of this encounter Care Teams Twister Frame Tender Relationship Specialty Start Date End Date Elsewhere, Pcp PCP - General 11/04/21 documented as of this encounter
--- OUTSIDE RECORDS SUMMARY | 2022-05-02 12:03 | XMS_ITS | Encounter Summary ---
:1970 Author Organization [facility] Address [address] [place] [id number] Care Team Providers Name Role Phone Elsewhere, Pcp Primary Care Provider Unavailable Encounter Details Date Type Department Care Team Description 03/13/2022 Anesthesia Event RST ROMB MAIN OR Aleyda Giron M.D. [address] [place] [address] [id number] [place] [address] Shira Mann M.D. [address] [place] [address] [phone] [place] [phone] Anesthesia Record Procedure Summary Procedure Name Responsible Anesthesia Start Anesthesia Stop Anesthesiologist Time Time LAPAROSCOPIC HAND Aleyda Giron M.D. 03/13/22 0822 03/13/22 1 622 ASSISTED SPLENECTOMY. Events Date Time Event Comment 03/13/2022 0822 An Start Machine/Equipmen t Checked Infection Precautions Foll owed Procedure/Site Verified NPO Sta tus Verified Supine Standard ASA Mon itors Applied 0836 An Induction 0839 An Intubation 0858 Lab Drawn 0859 Turnover to Proceduralist 0912 Anesthesia Time Out 0915 Image Start 0954 Lab Drawn 0957 Image End 0957 Turnover to ANE Staff 1006 Monitored Transport 1006 Transfer to OR 1006 Airway Device Maintained to Post Op Area 1007 an stop data 1012 An Start Data 1012 Proc Start 1526 Proc Fin 1546 Airway Removal Criteria Met 1546 Extubation/Airway Removed 1547 an stop data 1622 An End I completed my h andoff to the receiving staff during which we 1. Identified the p atient 2. Identified the r esponsible provider 3. Reviewed the pertinent medical history 4. Discu ssed the surgical course 5. Review ed intra-op anesthesia manag ement and issues during anesthesi a 6. Set expectations for post-procedure period 7. Allowe d opportunity for questions and ac knowledgement of understanding. Name Total fentanyl injection 50 mcg/mL 300 mcg lidocaine 2% (mg) injection 80 mg propofol 10 mg/mL 60 mg phenylephrine 100 mcg/mL injection 300 mcg ondansetron 4 mg/2 mL injection 4 mg sugammadex 100 mg/mL injection 200 mg vasopressin 20 Units/mL injection 11 Units ketamine 10 mg/mL injection 60 mg rocuronium 10 mg/mL injection 240 mg metroNIDAZOLE in NaCl (iso-osm) IVPB 500 mg (FLAGYL) 5 00 mg cefTRIAXone injection 2 g (ROCEPHIN) 2 g propofol 10 mg/mL infusion 446.94 mg heparin (porcine) injection 2,500 Units 2,500 Units HYDROmorphone PF 2 mg/mL injection 1.4 mg dexamethasone 4 mg/mL injection 4 mg calcium chloride 100 mg/mL injection 2,000 mg vasopressin 20 unit/100 mL (0.2 unit/mL) in D5W 100 mL infusion 1.68 Units (PITRESSIN) magnesium sulfate injection 2 g albumin human bottle 5% 500 mL Lactated Ringers Free Drip 1,000 mL lactated ringers free drip 2,200 mL NaCl 0.9 % free drip 1,400 mL Agents No agents on file. Blood Name Total RED BLOOD CELLS 1,980 mL PLATELETS 192 mL Lines, Drains, and Airways Type Details Placement Removal Wound Incision; Abdomen; 03/13/22 1530 by Right, Upper Scope Sites 03/13/22; Abdomen; 1; 03/13/22 0000 by Right, Lateral; 2; Margy Sampson, R.N. Right, Medial; 3; Left, Lateral Rapid Infusion Catheter 03/13/22; 1035 (created 03/13/22 1035 by ([facility]) via procedure Mayank Novoa, documentation); 8.5 Fr; M.D. Left; Antecubital Peripheral IV Placement Date: 11/07/21 1302 by 03/13/22 1835 b y 11/07/21; Placement Dari Coreas Ruden, Val erie J, Time: 1302; Catheter R.N., PCCN R.N. Size: 20 G; Orientation: Left, Lower, Posterior; Location: Forearm; Site Prep: Chlorhexidine (Preferred); Technique: Anatomical landmarks; Insertion Attempts: 1; Removal Date: 03/13/22; Removal Time: 1835 (removed. (rapid infuser iv )-inner forearm--- drsg intact.) Percutaneous Access 11/07/21; 1531; Venous; 11/07/21 1531 by 0830 by Site Right Jugular; 8 Fr.; Fernando Estrada Heide rscheit, 03/13/22 (no longer in [facility] Karen Mills, R.N. place); 0830 Peripheral IV Placement Date: 03/13/22 0648 by 03/17/22 1743 b y 03/13/22; Placement Blanca Cristobal R.N. Adams, Sy dney L, Time: 0648; Catheter R.N. Size: 22 G; Orientation: Right; Location: Hand; Site Prep: Chlorhexidine (Preferred); Technique: Anatomical landmarks (vcb); Inserted by: ANDREINA; Insertion Attempts: 1; Removal Date: 03/17/22; Removal Time: 1743 ETT Placement Date: 03/13/22 0839 by 03/13/22 1546 b y 03/13/22; Placement Meghan Ng Schubert, B randon Time: 0839 (created via SENIOR MECHANICAL DESIGN ENGINEERDUNG Baez, DANNY, C S S REPRESENTATIVE procedure documentation); Mask Ventilation: Easy mask; Type: Standard ETT; Single Lumen Tube Size: 7 mm; Cuffed: Yes; Location: Oral; Grade View: Grade 1; Insertion Attempts: 1; Placement Verification: Bilateral breath sounds, Positive ETCO2, Symmetrical chest wall movement; Removal Date: 03/13/22; Removal Time: 1546 Peripheral IV Placement Date: 03/13/22 0847 by 03/15/22 2045 b y 03/13/22; Placement Meghan Ng Higgins, Je ffrey Time: 0847; Catheter SENIOR MECHANICAL DESIGN ENGINEER, C S S REPRESENTATIVE R, R.N. Size: 18 G; Orientation: Right; Location: Foot; Removal Date: 03/15/22; Removal Time: 2044; Removal Reason: Per patient/family request (painful) Peripheral IV Placement Date: 03/13/22850 by 03/15/22 1545 b y 03/13/22; Placement Meghan Ng Bille, Ryan C, Time: 850; Catheter DUNG DELGADO R.N. Size: 18 G; Orientation: Left; Location: Foot; Technique: Transillumination; Removal Date: 03/15/22; Removal Time: 1544 Indwelling Urinary Placement Date: 03/13/22903 by 03/14/22 123 4 by Catheter 03/13/22; Placement Josue Florez Ke lly M, Time: 903; Type: Latex, R.N. Double-lumen; Size: 16 Fr.; Balloon Size: 10 mL; Urine Returned: Yes; Removal Date: 03/14/22; Removal Time: 123; Removal Reason: Criteria for drain removal met Percutaneous Access 03/13/22; 940; 03/13/22940 by 03/17/22 17 48 by Site Temporary (non-tunneled, [place]it, Karen Ad ams, Sherron L, non-implanted); A, R.N. R.N. Arterial; Yes; Yes; Yes; Yes; Chlorhexidine (Preferred); Yes; Cap, Gloves, Gown, Large drape, Mask (Clinician), Mask (All others in room); Dr. Rodrigez; Right Femoral; 5 Fr.; 03/17/22; 174 CVC Triple Lumen Placement Date: 03/13/221111 by 03/13/221819 by 03/13/22; Placement Isis Lux Ruden, Va lerie J, Time: 1111 (created via MKathleen R.NZahraa procedure documentation); Type: Temporary (non-tunneled, non-implanted); Orientation: Right; Location: Internal jugular; Technique: Ultrasound guidance; Insertion Attempts: 1; Securement: Securement dressing; Removal Date: 03/13/22; Removal Time: 1819 (removed per Zahraa paniagua) Introducer 03/13/22; 1112 (created 03/13/221111 by 2 1820 by via procedure Isis Lux Ruden, Valeri e J, documentation); M.Haydee. R.N. Temporary (non-tunneled, non-implanted); Yes; Internal jugular; Right; Double lumen; Securement dressing; 03/13/22; 1820 (removed per anes. 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 - 03/13/2022 7:14 PM CDT Patient: Jennifer Dobbs Procedure Summary Date: 03/13/22 Room / Location: [place] [address] / [facility] in [place], [place]; Department of Radiology in [place], [place] Anesthesia Start: 821 Anesthesia Stop: 1621 Procedures: LAPAROSCOPIC HAND ASSISTED SPLENECTOMY. IR ARTERIAL EMBOLIZATION Diagnosis: Splenomegaly Acquired (Splenomegaly Acquired [R16.1].) (plan splenic arteriogram with embolization prior to splenectomy) Scheduled Providers: Octavio Rodrigez M.D.; Hema Rothman M.D.; Yissel Martinez M.D. Responsible Provider: Aleyda Giron M.D. Anesthesia Type: general ASA Status: 4 Anesthesia Type: general Last vitals Vitals Value Taken Time BP 121/80 03/13/22 1900 Temp 36.9 ??C 03/13/22 1610 Pulse 88 03/13/22 1914 Resp 12 03/13/22 1914 SpO2 99 % 03/13/22 191 Vitals shown include unvalidated device data. Please reference Vitals flowsheet for most recent vital signs. Anesthesia Post Evaluation Patient Disposition: general care unit Cardiovascular status: hemodynamics (HR & BP) acceptable Respiratory status: patent airway with spontaneous effort Temperature: normothermic Oxygen requirements: room air Level of consciousness: sedated but awakens easily Pain score: pain adequately controlled and/or at baseline Post Op nausea/vomiting: none Hydration status: euvolemic Comments: CVC with clip in and rapid infusion catheter removed. Anesthesia Procedure Notes - Mayank Novoa M.D. - 03/13/2022 4:34 PM CDT Associated Order(s): Invasive Catheter Invasive Catheter Date/Time: 03/13/2022 10:35 AM Performed by: Mayank Novoa M.D. Authorized by: Mayank Novoa M.D. Location: OR PROCEDURE DETAILS: Line type: peripheral rapid infusion catheter Laterality: left Location: antecubital Location details: new site Patient position: Trendelenburg Age group: adult Catheter diameter: 8.5 Fr Site the catheter was advanced to (this is the intended location and does not need to be proven by radiologic exam): peripheral venous circulation Technique: ultrasound guided Ultrasound guidance: image acquired and saved Ultrasound comment: ultrasound guidance used demonstrating vessel patency and cannulation of the vessel observed. Vessel transduced: no Monitored (venous): yes Number of attempts: 1 UNIVERSAL PROTOCOL All relevant documentation and testing were reviewed and available. All required blood products, implants, devices and or special equipment were made available as applicable. Pre-procedure verificationwas conducted and the correct site was marked if required. A fire risk assessment was done as applicable. The procedural time-out to verify correct patient, correct side/site, and procedure was conducted prior to performing the procedure and confirmed in a procedural pause. PRE-PROCEDURE DETAILS: Appropriate hand hygiene, gown, cap, mask, protective eyewear, sterile gloves, skin preparation, sterile drape, and strict aseptic technique were utilized as applicable for the procedure.: yes Skin preparation: chlorhexidine SEDATION / ANESTHESIA Anesthesia method: anesthesia POST-PROCEDURE DETAILS: Procedure completed successfully: yes Line secured: sutured Chlorhexidine disc around insertion site and under catheter with slight turn: no Complications: none Anesthesia Procedure Notes - Isis Lux M.D. - 03/13/2022 11:12 AM CDT Associated Order(s): Invasive Catheter Invasive Catheter Date/Time: 03/13/2022 11:12 AM Performed by: Isis Lux M.D. Authorized by: Mayank Novoa M.D. Location: OR PROCEDURE DETAILS: Line type: central venous Laterality: right Location: jugular internal Location details: new site Patient position: Trendelenburg Age group: adult Line Type: temporary (non-tunneled, non-implanted) Introducer: yes Introducer size: 7 Fr Introducer insertion depth: 10 cm Catheter placed via introducer: clip in triple lumen Lumen(s): double lumen Technique: ultrasound guided Vessel transduced: yes Monitored (venous): yes Number of attempts: 1 UNIVERSAL PROTOCOL All relevant documentation and testing were reviewed and available. All required blood products, implants, devices and or special equipment were made available as applicable. Pre-procedure verificationwas conducted and the correct site was marked if required. A fire risk assessment was done as applicable. The procedural time-out to verify correct patient, correct side/site, and procedure was conducted prior to performing the procedure and confirmed in a procedural pause. SEDATION / ANESTHESIA Anesthesia method: anesthesia POST-PROCEDURE DETAILS: Procedure completed successfully: yes Line secured: secured with sutureless device Chlorhexidine disc around insertion site and under catheter with slight turn: yes Complications: none ATTESTATION STATEMENT A resident or fellow participated in the procedure, and the system consultant was present for the entire procedure. Anesthesia Procedure Notes - Meghan Ng APRN, CRNA - 03/13/2022 9:00 AM CDTAssociated Order(s): Airway Airway Date/Time: 03/13/2022 8:39 AM Performed by: Meghan Ng APRN, CRNA Authorized by: Meghan Ng APRN, CRNA Patient location during procedure: OR / Procedure Area PROCEDURE DETAILS: Mask difficulty assessment: easy mask Final airway type: video laryngoscope Laryngeal Manipulation: no Final best view of glottic structures - Cormack/Lehane Score: grade 1 ETT location: oral VL device: glide scope [place] scope blade size: 3 Adult tube size: 7 Adult ETT distance at teeth/gum: 21 Oral tube type: standard ETT Cuffed: yes Number of attempt to successful placement: 1 Airway confirmation: bilateral breath sounds, positive ETCO2 and bilateral chest rise Other previous techniques attempted: none PRE PROCEDURE DETAILS: Pre evaluation for airway management: procedure Urgency: elective Preop assessment of probable difficulty: questionable / suspicious difficult airway Preoxygenation: bag valve mask SEDATION / ANESTHESIA Anesthesia method: anesthesia POST PROCEDURE DETAILS: Procedure outcome: successful Airway event: no complications Anesthesia Preprocedure Evaluation - Mayank Novoa M.D. - 03/13/2022 6:53 AM CDT Preprocedure Anesthesia & H&P Assessment Procedure Summary Date/Time: 03/13/22729 Providers: Hema Rothman M.D. Scheduled Providers: Octavio Rodrigez M.D.; Yissel Martinez M.D. Procedures: LAPAROSCOPIC SPLENECTOMY. SPLENECTOMY. IR ARTERIAL EMBOLIZATION Diagnosis: Splenomegaly Acquired [R16.1] Indications: Splenomegaly Acquired [R16.1]. plan splenic arteriogram with embolization prior to splenectomy Location: [facility] 103 ROMB 01 506 / [facility] in [place], [place]; Department of Radiology in [place], [place] Pertinent components of the patient's history including current problem list, medical history, surgical history, family history, social history, medications and allergies were reviewed. Present illnessand pre-op diagnosis were confirmed. The planned surgery / procedure was verified with the patient /legal guardian. The patient's general health condition remains unchanged RELEVANT COMORBID CONDITIONS CV (+) Failure Heart Right (HCC) (+) Hypertension Pulmonary (HCC) RESP (+) Hypertension Pulmonary (HCC) GENETICS (+) Fluid Overload Unspecified (+) Hyperphosphatemia (+) Hyperuricemia GI (+) Gastroesophageal Reflux Disease HEME (+) Anemia Of Chronic Disease (+) Myelofibrosis Primary (HCC) (+) Pancytopenia (HCC) ONC (+) Myelofibrosis Primary (HCC) OBJECTIVE PHYSICAL EXAMINATION Airway (HEENT) Mallampati: II TM Distance: >3 FB Neck ROM: Full Mouth Opening: >3 cm Upper Lip Bite Test Class: I Cardiovascular Rhythm: Regular Rate: Normal Cardiovascular Assessment: cardiovascular normal Functional Capacity: >4 METS Pulmonary Pulmonary Assessment: Clear General / Constitutional Constitutional Assessment: Normal General State of Health:: calm Neurological Neurologic Assessment:??alert ASSESSMENT / PLAN ANESTHESIA PLAN ASA: 4 Anesthesia Plan: general Patient seen and allergies reviewed, anesthesia plan and risks discussed directly with patient /legal guardian or through an web ui software engineer. Risks/Benefits/Alternatives of Blood transfusion discussed with patient / legal guardian, including an opportunity to ask questions and/or decline some or all transfusion therapies. The patient / legalguardian consented to the use of all blood products, as deemed medically necessary Discussed risk of potential decreased hormonal contraceptive efficacy for up to one month after anesthesia due to medication interactions. Approval to Proceed: approved for anesthesia documented in this encounter Plan of Treatment Not on filedocumented as of this encounter Procedures Procedure Name Priority Date/Time Associated Comments Diagnosis ANE CENTRAL LINE Routine 03/13/2022 11:12 Resu lts for this GENERIC PERFORMABLE AM CDT procedur e are in the results section. LDA ANE INTRODUCER Routine 03/13/2022 11:12 Resul ts for this ONLY AM CDT procedure are i n the results section. [facility] ANE CENTRAL LINE Routine 03/13/2022 11:12 Res ults for this TRIPLE LUMEN AM CDT procedure are i n the results section. MI INS NON-BAY CVC Routine 03/13/2022 11:12 Resul ts for this >5YR AM CDT procedure are i n the results section. ANE INVASIVE CATH Routine 03/13/2022 10:35 Res ults for this WITH ULTRASOUND AM CDT procedure ar e in the results section. LDA ANE RAPID Routine 03/13/2022 10:35 Results fo r this INFUSION CATHETER AM CDT procedure are in INSERTION the results section. MI US GUIDE VASC Routine 03/13/2022 10:35 Results for this ACCESS AM CDT procedure are i n the results section. LDA ANE ENDOTRACHEAL Routine 03/13/2022 8:39 AM R esults for this AIRWAY CDT procedure are i n the results section. documented in this encounter Results MI INS NON-BAY CVC >5YR, LDA ANE CENTRAL LINE TRIPLE LUMEN, LDA ANE INTRODUCER ONLY, MC ANE CENTRAL LINE GENERIC PERFORMABLE (03/13/2022 11:12 AM CDT) Narrative Mayank Novoa M.D. - 03/13/2022 11:1 2 AM CDT Isis Lux M.D. ? 03/13/2022 11:13 AM Invasive Catheter Date/Time: 03/13/2022 11:12 AM Performed by: Isis Lux M.D. Authorized by: Mayank Novoa M.D. Location: OR PROCEDURE DETAILS: Line type: [...] fellow participated in the procedure, and the system consultant was present for the entire procedure. Mayank Novoa M.D. PROCEDURE/MINOR SURGICAL ORD ERABLES MI US GUIDE VASC ACCESS, LDA ANE RAPID INFUSION CATHETER INSERTION, MC ANE INVASIVE CATH WITH ULTRASOUND (03/13/2022 10:35 AM CDT) Narrative Mayank Novoa M.D. - 03/13/2022 10:3 5 AM CDT Mayank Novoa M.D. ? 03/13/2022 ??4:36 PM Invasive Catheter Date/Time: 03/13/2022 10:35 AM Performed by: Mayank Novoa M.D. Authorized by: Mayank Novoa M.D. Location: OR PROCEDURE DETAILS: Line type: [...] slight turn: no ?? Complications: none ?? Mayank Novoa M.D. PROCEDURE/MINOR SURGICAL ORD ERABLES LDA ANE ENDOTRACHEAL AIRWAY (03/13/2022 8:39 AM CDT) Narrative Meghan Ng APRN, CRNA - 03/13/2022 8:39 AM CDT Meghan Ng APRN, CRNA ? 03/13/2022 ??9:05 AM Airway Date/Time: 03/13/2022 8:39 AM Performed by: Meghan Ng APRN, CRN A Authorized by: Meghan Ng APRN, CR NA Patient location during procedure: OR / Procedure Area PROCEDURE DETAILS: Mask difficulty assessment: easy mask Final airway type: video laryngoscope Laryngeal Manipulation: no ?? Final best view of glottic structures - Cormack/Lehane Score: grade 1 ETT location: oral VL device: glide scope [place] scope blade size: 3 Adult tube size: [...] successful ?? Airway event: no complications Meghan Ng APRN, CRNA ANESTHESIA ORDERABLES documented in this encounter Visit Diagnoses Not on filedocumented in this encounter Administered Medications Inactive Administered Medications - up to 3 most recent administrations Medication Order MAR Action Action Date Dose Rate Site albumin human 5 % injection Given 03/13/2022 3:39 PM CDT 250 mL intravenous, As needed, Starting on Fri03/13/22 at 1519, Anesthesia Intra-op Given 03/13/2022 3:19 PM CDT 250 mL calcium chloride injection Given 03/13/2022 1:40 PM CDT 500 mg intravenous, As needed, Starting on Fri03/13/22 at 1330, Anesthesia Intra-op Given 03/13/2022 1:39 PM CDT 500 mg Given 03/13/2022 1:36 PM CDT 200 mg cefTRIAXone injection 2 g (ROCEPHIN) Given 03/13/2022 9:22 AM CDT 2 g 2 g, intravenous, Once, On Fri03/13/22 at 0845, For 1 dose, Intraprocedure (RAD), Administer within 1 hour prior to surgical incision If needed, reconstitute vial per package insert instructions. See IVAG for administration guidelines. , Drug Monitoring Program: Pharmacist to adjust medication dosing based on indication and drug clearance factors., Indications: Prophylaxis, surgical dexAMETHasone injection (DECADRON) Given 03/13/2022 12:51 PM CDT 4 mg intravenous, As needed, Starting on Fri03/13/22 at 1251, Anesthesia Intra-op fentaNYL injection (SUBLIMAZE) Given 03/13/2022 1:45 PM CDT 100 mcg intravenous, As needed, Starting on Fri03/13/22 at 0822, Anesthesia Intra-op Given 03/13/2022 12:50 PM CDT 50 mcg Given 03/13/2022 11:30 AM CDT 50 mcg heparin (porcine) injection 2,500 Units Given 03/13/2022 10:35 AM CDT 2,500 Units 2,500 Units, subcutaneous, Once, On Fri03/13/22 at 0730, For 1 dose, Intra-Op, Administer prior to induction of anesthesia. HYDROmorphone (PF) injection (DILAUDID) Given 03/13/2022 12:54 PM CDT 0.2 mg intravenous, As needed, Starting on Fri03/13/22 at 1137, Anesthesia Intra-op Given 03/13/2022 12:00 PM CDT 0.4 mg Given 03/13/2022 11:43 AM CDT 0.4 mg ketamine injection (KETALAR) Given 03/13/2022 11:24 AM CDT 20 mg intravenous, As needed, Starting on Fri03/13/22 at 0822, Anesthesia Intra-op Given 03/13/2022 8:35 AM CDT 40 mg lactated ringers New Bag 03/13/2022 2:29 PM CDT intravenous, Continuous Infusion: Per Instructions PRN, Starting on Fri03/13/22 at 0830, Anesthesia Intra-op New Bag 03/13/2022 8:30 AM CDT lactated ringers New Bag 03/13/2022 2:26 PM CDT intravenous, Continuous Infusion: Per Instructions PRN, Starting on Fri03/13/22 at 0825, Anesthesia Intra-op New Bag 03/13/2022 10:45 AM CDT New Bag 03/13/2022 8:25 AM CDT lidocaine (PF) (cardiac) injection Given 03/13/2022 8:35 AM CDT 80 mg intravenous, As needed, Starting on Fri03/13/22 at 0835, Anesthesia Intra-op magnesium sulfate injection Given 03/13/2022 2:25 PM CDT 2 g intravenous, As needed, Starting on Fri03/13/22 at 1425, Anesthesia Intra-op metroNIDAZOLE in NaCl (iso-osm) IVPB 500 mg Given 03/13/2022 9:19 AM CDT 500 mg (FLAGYL) 500 mg, intravenous, at 200 mL/hr, Administer over 30 Minutes, Once, On Fri03/13/22 at 0845, For 1 dose, Intraprocedure (RAD), Administer within 1 hour prior to surgical incision, Indications: Prophylaxis, surgical NaCl 0.9% infusion New Bag 03/13/2022 2:29 PM CDT intravenous, Continuous Infusion: Per Instructions PRN, Starting on Fri03/13/22 at 1033, Anesthesia Intra-op New Bag 03/13/2022 10:33 AM CDT ondansetron (PF) injection (ZOFRAN) Given 03/13/2022 3:27 PM CDT 4 mg intravenous, As needed, Starting on Fri03/13/22 at 1527, Anesthesia Intra-op phenylephrine injection Given 03/13/2022 8:39 AM CDT 100 mcg intravenous, As needed, Starting on Fri03/13/22 at 0836, Anesthesia Intra-op Given 03/13/2022 8:36 AM CDT 200 mcg propofol 10 mg/mL infusion Restarted 03/13/2022 1:49 50 mcg/kg/min 2 8.08 mL/hr (DIPRIVAN) PM CDT intravenous, Continuous Infusion: Per Instructions PRN, Starting on Fri03/13/22 at 1004, Anesthesia Intra-op Restarted 03/13/2022 1:10 PM CDT 50 mcg/kg/min 28.08 mL/hr New Bag 03/13/2022 10:04 AM CDT 125 mcg/kg/min 70.2 mL/hr propofoL injection (DIPRIVAN) Given 03/13/2022 8:36 AM CDT 60 mg intravenous, As needed, Starting on Fri03/13/22 at 0836, Anesthesia Intra-op rocuronium injection (ZEMURON) Given 03/13/2022 2:46 PM CDT 10 mg intravenous, As needed, Starting on Fri03/13/22 at 0835, Anesthesia Intra-op Given 03/13/2022 12:26 PM CDT 20 mg Given 03/13/2022 11:59 AM CDT 20 mg sugammadex injection (BRIDION) Given 03/13/2022 3:27 PM CDT 200 mg intravenous, As needed, Starting on Fri03/13/22 at 1527, Anesthesia Intra-op Transfuse Platelets : New Bag 03/13/2022 12:03 PM CDT Routine Transfuse Red Blood Cells : New Bag 03/13/2022 8:41 AM CDT Routine, Transfusion Indication: Hgb less than 7g/dL, Blood Product Administration Rate (mL/hr): 180 mL/hr, Special Requirements? Yes, Special Requirements: Irradiated, Has consent been obtained? Yes - Written consent obtained via [id number], [id number], or [id number], Attending prescriber supervising blood product administration: CANDE BROWN, NIKITA Team Comments: Consent done/tt Transfuse Red Blood Cells : New Bag 03/13/2022 9:17 AM CDT Routine, Transfusion Indication: Hgb less than 7g/dL, Blood Product Administration Rate (mL/hr): 180 mL/hr, Special Requirements? No Special Requirements, Has consent been obtained? Yes - Written consent obtained via [id number], [id number], or [id number], Attending prescriber supervising blood product administration: MAYANK NOVOA Transfuse Red Blood Cells : New Bag 03/13/2022 10:49 AM CDT Routine, Transfusion Indication: Hgb less than 7g/dL, Blood Product Administration Rate (mL/hr): 180 mL/hr, Special Requirements? No Special Requirements, Has consent been obtained? Yes - Written consent obtained via [id number], [id number], or [id number], Attending prescriber supervising blood product administration: MAYANK NOVOA Transfuse Red Blood Cells : New Bag 03/13/2022 1:35 PM CDT Routine, Transfusion Indication: Hgb less than 7g/dL, Blood Product Administration Rate (mL/hr): 180 mL/hr, Special Requirements? No Special Requirements, Has consent been obtained? Yes - Written consent obtained via [id number], [id number], or [id number], Attending prescriber supervising blood product administration: MAYANK NOVOA Transfuse Red Blood Cells : New Bag 03/13/2022 1:41 PM CDT Routine, Transfusion Indication: Hgb less than 7g/dL, Blood Product Administration Rate (mL/hr): 180 mL/hr, Special Requirements? No Special Requirements, Has consent been obtained? Yes - Written consent obtained via [id number], [id number], or [id number], Attending prescriber supervising blood product administration: MAYANK NOVOA Transfuse Red Blood Cells : New Bag 03/13/2022 2:27 PM CDT Routine, Transfusion Indication: Hgb less than 7g/dL, Blood Product Administration Rate (mL/hr): 180 mL/hr, Special Requirements? No Special Requirements, Has consent been obtained? Yes - Written consent obtained via [id number], [id number], or [id number], Attending prescriber supervising blood product administration: MAYANK NOVOA, IV Team Comments: Hung in the OR/JMP/LAR, Priority: 6 vasopressin 20 unit/100 Rate/Dose Change 03/13/2022 3:17 0.04 Units /min 12 mL/hr mL (0.2 unit/mL) in D5W PM CDT 100 mL infusion (PITRESSIN) 0.04 Units/min (12 mL/hr), intravenous, Continuous, Starting on Fri03/13/22 at 0700, Intra-Op, 20 units in 100 mL Rate/Dose Change 03/13/2022 2:43 PM CDT 0.03 Units/min 9 mL/hr New Bag 03/13/2022 2:40 PM CDT 0.02 Units/min 6 mL/hr vasopressin injection (PITRESSIN) Given 03/13/2022 3:08 PM CDT 1 Units intravenous, As needed, Starting on Fri03/13/22 at 1308, Anesthesia Intra-op Given 03/13/2022 2:54 PM CDT 1 Units Given 03/13/2022 2:40 PM CDT 1 Units documented in this encounter Care Teams Manufacturing Shift Supervisor Relationship Specialty Start Date End Date Elsewhere, Pcp PCP - General 11/04/21 documented as of this encounter
--- OUTSIDE RECORDS SUMMARY | 2022-05-02 12:03 | XMS_ITS | Encounter Summary ---
:1970 Author Organization [facility] Address [address] [place] [id number] Care Team Providers Name Role Phone Elsewhere, Pcp Primary Care Provider Unavailable Encounter Details Date Type Department Care Team Description 03/12/2022 Hospital Encounter Department of Hema Rothman Acquired Laboratory Medicine [facility], [address] [place] [address] in [place] [phone] [place] [phone] [place] [address] ([facility]) [place], [place] [phone] (Fax) [phone] Social History Tobacco Use Types Packs/Day Years [...] at Date Recorded 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 documented as of this encounter Plan of Treatment Not on filedocumented as of this encounter Procedures Procedure Name Priority Date/Time Associated Diagnosis Comme nts CBC WITHOUT Routine 03/12/2022 8:55 AM Splenomegaly Acquired Results for this DIFFERENTIAL, B CDT procedure ar e in the results section. TYPE AND SCREEN Routine 03/12/2022 8:55 AM Splenomegaly Acquir ed Results for this CDT procedure are i n the results section. documented in this encounter Results Type and Screen (with reflex Antibody ID) (03/12/2022 8:55 AM CDT) [facility] Method Time Signature ABORh A Pos Not 03/12/2022 ETRM applicable 10:07 AM CDT Antibody Negative Negative 03/12/2022 ETRM Screen 10:19 AM CDT Type & Screen 03/15/2022 03/12/2022 ETRM Expiration 23:59 10:07 AM CDT Testing [place] DEFAULT 03/12/2022 ETRM Location 9:34 AM CDT Specimen Anatomical Collection Method Collection Time Receive d Time (Source) Location / / Volume Laterality Blood (Blood, 03/12/2022 8:55 AM 03/12/20 22 9:34 Venous) CDT AM CDT Hema E Grotz M.D. LAB BLOOD BANK TEST ORDERABL ES Performing Organization Address City/[facility] Phon e Number [facility] - [address] [place] [address] [address] [facility] [place] [address] Laboratories-[facility] [address] [facility] (ABNORMAL) CBC without Differential (03/12/2022 8:55 AM CDT) [facility] gist Method Time Signature Hemoglobin 6.5 (L) 11.6 - 03/12/2022 DTL 15.0 g/dL 9:26 AM CDT Hematocrit 21.7 (L) 35.5 - 03/12/2022 DTL 44.9 % 9:26 AM CDT Erythrocytes 2.39 (L) 3.92 - 03/12/2022 DTL 5.13 9:26 AM CDT x10(12)/L MCV 90.8 78.2 - 03/12/2022 DTL 97.9 fL 9:26 AM CDT RBC Distrib Width 25.3 (H) 12.2 - 03/12/2022 DTL 16.1 % 9:26 AM CDT Platelet Count 53 (L) 157 - 371 03/12/2022 DTL x10(9)/L 10:24 AM CDT Comment: Results confirmed by smear, no clumping or interference seen. Leukocytes 3.6 3.4 - 9.6 x10(9)/L 03/12/2022 10:24 AM CDT DTL Comment: Results confirmed by smear. Specimen Anatomical Collection Method Collection Time Receive d Time (Source) Location / / Volume Laterality Blood (Blood, 03/12/2022 8:55 AM 03/12/20 22 9:15 Venous) CDT AM CDT Hema Rothman M.D. LAB BLOOD ADD-ON Performing Organization Address City/[facility] Phon e Number [facility] - [address] [place] [address] [address] [facility] [place] [address] documented in this encounter Visit Diagnoses Diagnosis Splenomegaly Acquired documented in this encounter Additional Health Concerns Infection Onset Date Last Indicated Resolved Time COVID19 Pending 03/12/2022 03/12/2022 03/12/2022 3:02 PM CDT documented as of this encounter Care Teams Centralized Traffic Control Operator Relationship Specialty Start Date End Date Elsewhere, Pcp PCP - General 11/04/21 documented as of this encounter
--- OUTSIDE RECORDS SUMMARY | 2022-05-02 12:03 | XMS_ITS | Encounter Summary ---
:1970 Author Organization [facility] Address [address] [place] [address] Care Team Providers Name Role Phone Elsewhere, Pcp Primary Care Provider Unavailable Encounter Details Date Type Department Care Team Description 03/13/2022 Surgery RST ROMB MAIN OR Hema Rothman, LAPAROSCOPIC HAND [address] [facility] M.DZahraa ASSISTED SPLENECTOMY. 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 - 03/18/2022 10:04 AM CDT DISCHARGE SUMMARY BRIEF OVERVIEW Hospital: [facility] Discharge Provider: Hema Rothman M.D. Primary Team: [facility] General Surgery - Stephan Primary Care [...] ASSISTED SPLENECTOMY. Hema Rothman M.D.Steadman, Jessica A, M.B.B.S. [facility] ROMB OR DISCHARGE DISPOSITION Home or [...] follow up in 1 week with local vault worker for blood work (CBC). Please have these results faxed to [phone] attn: Dr. Rothman for review, or send [...] splenectomy, 03/13/2022. The patient was admitted to [facility]. The patient was taken to the operating [...] sent through Care Everywhere. Acetaminophen (By mouth) (Japanese)Cyclobenzaprine (By mouth) (Japanese)Enoxaparin (By injection) (Japanese)Oxycodone, Rapid Release (By mouth) (Japanese)documented in this encounter Medications at Time of [...] We will arrange outpatient follow-up with primary vault worker Dr. Govea when she returns for her 4week surgical follow-up Plan discussed with Hematology pre sales technical consultant Dr. Kanu Talamantes who is in agreement with the plan. We plan to sign off. Please page [phone] 7a-5p and [phone] 5p-7a with any additional questions. Lois Alfredo, MS-4 Hematology Consult Service Edin Krueger [...] Coronavirus 2, Molecular Detection, PCR, Varies Asymptomatic [[id number]] Collected: 03/12/22 0937 Lab Status: Final result [...] ----ADDITIONAL INFORMATION---- This RT-PCR test using the Comeks SARS-CoV-2 Assay ( [employer]) performed on the Comeks Two Module System has received Emergency Use Authorization (EUA) by the U.S. Food and Drug Administration, and is modified from the structurer's instructions with a bridging study. Performance characteristics were verified by [facility] in a manner consistent with CLIA requirements. Visit the CDC website: https://www.cdc.gov/coronavirus/ for the most recent guidelines on Coronavirus testing. Fact Sheet for Healthcare Providers: https://www.fda.gov/media/334898/download Fact Sheet for Patients: https://www.fda.gov/media/890516/download Physical Exam Physical Exam General: Alert and [...] today. Was told to follow up with vault worker for weekly CBC, splenectomy vaccines in 2 [...] Patient is being cared for by the [facility] team. Edin Krueger M.D. PGY1 [phone] Kira Lockhart M.D. - 2022 9:51 AM [...] We will arrange outpatient follow-up with primary vault worker Dr. Govea when she returns for her 4week surgical follow-up. Plan discussed with Hematology pre sales technical consultant Dr. Ponce Miller who is in agreement with the plan. We will continue to follow. Please page [phone] 7a-5p and [phone] 5p-7a with any questions. Kira Lockhart M.D. [...] Coronavirus 2, Molecular Detection, PCR, Varies Asymptomatic [[id number]] Collected: 03/12/22 0937 Lab Status: Final result [...] ----ADDITIONAL INFORMATION---- This RT-PCR test using the Comeks SARS-CoV-2 Assay ( [employer].) performed on the Comeks Two Module System has received Emergency Use Authorization (EUA) by the U.S. Food and Drug Administration, and is modified from the structurer's instructions with a bridging study. Performance characteristics were verified by [facility] in a manner consistent with CLIA requirements. Visit the CDC website: https://www.cdc.gov/coronavirus/ for the most recent guidelines on Coronavirus testing. Fact Sheet for Healthcare Providers: https://www.fda.gov/media/485456/download Fact Sheet for Patients: https://www.fda.gov/media/165460/download Physical Exam Physical Exam Assessment Assessment and [...] Patient is being cared for by the [facility] team. Edin Krueger [phone] Tesfaye Ibrahim M.B.B.S. - 03/16/2022 1:42 PM [...] for Hgb < 7.0 Plan: - Discontinue MAGNET VALVE ASSEMBLER - Regular diet - Continue trending Hb - Increase Lovenox dosing Dispo: Discharge in a few days. Follow up plan would be to see her back in [address] pancreas protocol. Patient was seen and examined with Dr. Roy. Please don't hesitate to contact [facility] service with any questions or concerns. Evy Brar. Kira Lockhart M.D. - 03/16/2022 12:36 PM [...] is very hungry. Pain well controlled on MAGNET VALVE ASSEMBLER pump. Requiring 1L/min oxygen via nasal cannula. [...] We will arrange outpatient follow-up with primary vault worker Dr. Govea. Plan discussed with Hematology pre sales technical consultant Dr. Ponce Miller and Hematology fellow Dr. Annamaria De Luna. We will continue to follow. Please page [phone] 7a-5p and [phone] 5p-7a with any questions. Kira Lockhart M.D. Internal Medicine, PGY-2 Hematology Consult Service Rivka Prabhakar Pharm.Haydee., R.Ph. - 03/16/2022 9:47 AM CDT Pharmacist Progress Note Reason for admission: 51 y/o female with myelofibrosis and splenomegaly s/p splenectomy on 03/13/2022. PMH: anxiety, chronic pain, pancytopenia, sinus tachycardia, heart failure, HTN, hyperphosphatemia, GERD, insomnia OBJECTIVE VSS/wnl; Hgb: 6.3 this AM - txfn x1 PRBCs Pain: 6-10; APAP/MS contin scheduled, oxy prn (60 yest, none since [place]); HM MAGNET VALVE ASSEMBLER (13.6 yest, 4 since [place]) Good UOP, [...] discharge: Heme recs, splenectomy vaccines Rivka Prabhakar PharmZahraaDZahraa, R.Ph. Lois Alfredo R - 03/15/2022 11:37 AM CDT Hematology [...] scheduled laparoscopic splenectomy on 03/[address] Rotmhan.Hematology Consult Service was consulted for assistance with [...] for anticoagulation upon discharge with her primary Pcu Rn, Dr. Govea. Plan discussed with Hematology pre sales technical consultant Dr. Ponce Miller and Hematology fellow Dr. Annamaria De Luna. We will continue to follow. Please page [phone] 7a-5p and [phone] 5p-7a with any questions. 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 Clinically doing fine. She may need some form of anticoagulation post discharge. Mason Mike M.B.BZahraaS. - 03/15/2022 7:28 AM CDT HPBS PROGRESS NOTE Hospital Day: 3 Jennifer Dobbs is a 51 y.o. female Laparoscopic hand assisted splenectomy 2 Days Post-Op SUBJECTIVE Patient is doing well this morning and had no acute events overnight. Pain is appropriately controlled with Dilaudid MAGNET VALVE ASSEMBLER and intermittent p.o. oxycodone. No nausea and vomiting. Tolerating diet. No return of bowel function. Patient has been ambulating. OBJECTIVE Vitals: Temperature: [36.7 ??C-36.9 ??C] 36.9 ??C Heart Rate: [89] 89 Resp Rate: [16-18] 16 Blood Pressure: (112-135)/(53-74) 119/53 SpO2: [94 %-98 %] 95 % Flow Rate (L/min): [1 L/min-2 L/min] 1 L/min Pulse Rate: [87-106] 91 I/O 03/13 0703/14 0700 03/14 0703/15 0700 03/15 0701 03/16 0700 P.O. 400 [...] and afebrile. Pain is appropriately controlled on MAGNET VALVE ASSEMBLER and intermittent oxycodone. On exam, abdomen is [...] chest physio Please don't hesitate to contact [facility] service with any questions or concerns. Electronically signed by: Murphy RoyB.S. Dena Mendez PharmZahraaD., R.Ph. - 03/14/2022 1:30 PM CDT Pharmacist [...] discharge: Heme recs, splenectomy vaccines Dena Mendez Pharm.D., R.Ph. Mason Mike M.B.B.S. - 03/14/2022 7:26 [...] Pulse Rate: [79-121] 105 I/O 03/12 0703/13 0700 03/13 0701 03/14 0700 03/14 0701 03/15 0700 P.O. 400 Red Blood Cells 1980 [...] chest physio Please don't hesitate to contact [facility] service with any questions or concerns. Electronically signed by: Ronaldo Roy.B.S. Kathy Morrison Pharm.D., R.Ph. - 03/11/2022 2:55 PM CDT [...] they are new for her. Kathy Morrison PharmMilagros., R.Ph. documented in this encounter Consult Notes [...] and she has preemptively been using the MAGNET VALVE ASSEMBLER for mobilization. She denies any nausea, vomiting, somnolence or additional symptoms. She had a lot of trouble with pain control yesterday evening and thePCA was starting which provided the most improvement. Yesterday's requirements: - Tylenol 100 mg - Morphine 60 mg PO - Oxycodone 30 mg PO - Hydromorphone MAGNET VALVE ASSEMBLER 3.2 mg total Current Medications: - Tylenol 1000 mg q6h - Hydromorphone MAGNET VALVE ASSEMBLER 0.4/10/8 - Morphine 60 mg BID + [...] Vitals: 03/14/22 1845 03/14/22 1851 03/14/22 1918 03/14/222045 Pain Score: 10 - Worst possible pain 10 - Worst possible pain 10 - Worst possible pain 9 03/14/22 2137 03/14/22 2315 03/14/22 2353 03/15/22 0432 Pain Score: 6 5 - Moderate pain 5 - Moderate pain 3 03/15/22 0917 03/15/22 1122 03/15/22 1126 03/15/22 1224 Pain Score: 5 - Moderate pain 10 - Worst possible pain 10 - Worst possible pain 8 Pain Assessment Pain Assessment: 0-10 Numeric Pain Intensity Scale (03/14/222352 : Prakash Murry R.N.) Pain Score: 8 (03/15/22 1224 : Sameer Cain, R.N.) Faces Pain Scale: 0 (03/13/22 1659 : Rachelle Stapleton, R.N.) Pain Type: Surgical pain (03/14/22838 : Gabriela Dobbins, R.N.) Pain Location: Abdomen (03/15/22 0532 : Prakash Murry R.N.) Pain Orientation: Mid (03/14/22838 : Gabriela Dobbins R.N.) Pain Descriptors: Aching, Pressure (03/14/22838 : Gabriela Dobbins, R.N.) Pain Onset: Ongoing (03/14/22838 : Gabriela Dobbins, R.N.) Pain Frequency: Constant/continuous (03/14/22838 : Gabriela Dobbins, R.N.) Clinical Progression: Not changed (03/14/22838 : Gabriela Dobbins, R.N.) Patient's Stated Pain Goal: 8 (03/14/22838 : Gabriela Dobbins R.N.) Pain Interventions: Medication (See MAR) (MAGNET VALVE ASSEMBLER available) (03/14/222352 : Prakash Murry, R.N.) Response to Interventions: Asleep (03/15/22 0532 : Prakash Murry, R.N.) Resp Rate: 16 (03/15/22 1225 : Sameer Cain, R.N.) Respiratory Depth/Rhythm: Regular [...] 24-48 hr with adequate control on hydromorphone MAGNET VALVE ASSEMBLER would calculate total dose needed over 24 [...] - Lidocaine patch PRN - Voltaren gel, pnkzgmad-dfawshycqdavd-chtjqzllb-lipoderm gel, bengay PRN -Consider integrative medicine techniques [...] Q 1-2 hours PRN or initiation of MAGNET VALVE ASSEMBLER. - If above ineffective transition to Hydromorphone MAGNET VALVE ASSEMBLER level 1 and DC IV push. - [...] of discontinuation: first remove ketamine followed by MAGNET VALVE ASSEMBLER then IV. Start at whichever step based on requirements from previous section. If ketamine started and reached max dose (0.3 mg/kg/min ) can halve it for a couple hours to ensure pain managed effectively then discontinue completely. The only risk with discontinuation is increasedpain and this can be managed with an increase in oral regiment if felt necessary by primary service. 2. If MAGNET VALVE ASSEMBLER utilized, when discontinuing assess current oral regiment to identify if increased oral dosage of medications is needed to help mitigate the IV requirements. When discontinuing the MAGNET VALVE ASSEMBLER, should continue to have IV PRN rescue available. 3. If requiring a large amount of IV medications (MAGNET VALVE ASSEMBLER or rescue) would recommend optimizing oral oxycodone/hydromorphone [...] were discussed with Dr. Woods, Pain Medicine pre sales technical consultant. We will sign off. Please call the relevantservice pager to clarify further or raise concerns ([place]:[phone] or [place]: [phone]). Leena Sandhu M.D. Anesthesiology and Perioperative Medicine CA-1/PGY-2 Pager #[phone] Associated attestation - Sameer Woods M.D. - 03/15/2022 3:35 PM CDT I saw and evaluated the patient, participating in the roa portions of the service. I reviewed the resident/fellow???s note. I agree with the resident/fellow???s findings and plan. Lois Alfredo - 03/14/2022 10:27 AM CDTAssociated Order(s): IP CONSULT TO HEMATOLOGY Hematology Consult Service SUBJECTIVE REFERRING SERVICE RST General Surgery - Stephan Reason for consult: [...] cm). Subsequent bone marrow examination by outside vault worker, Dr. Hu, revealed CALR primary myelofibrosis. Her previous treatments are outlined below: 08/2015-01/2016: Jakafi, stopped due to lack of response and transfusion dependent anemia 05/2016-08/2016: [id number] clinical study utilizing alisertib, completed 3 cycles, [...] primary myelofibrosis previously treated with Jakafi, alisertib, clinical study, fedratinib, complicated by chronic transfusion [...] Fellow, Dr. Annamaria De Luna. Please page [phone] 7a-5p and [phone] 5p-7a with any questions. Lois Alfredo, MS-4 [...] discharge. Will arrange outpatient follow-up with primary Pcu Rn Dr. Govea. Plan discussed with Hematology pre sales technical consultant Dr. Ponce Miller and Hematology fellow Dr. Annamaria De Luna. We will continue to follow. Please page [phone] 7a-5p and [phone] 5p-7a with any questions. Lois Juni, MS-4 Hematology Consult Service documented in this encounter OR Notes Op Note - Hema Rothman M.D. - 03/13/2022 11:22 AM CDT Pre-op Diagnosis Splenomegaly Acquired Post-op Diagnosis Splenomegaly Acquired A curriculum assistant principal actively participated and was necessary for one [...] alternating between blunt dissection with the suction artificial pearl maker and sharp dissection with the hook cautery. [...] combination of Quick clot, argon beam and Jessie to obtain excellent hemostasis of the right [...] splenectomy, 03/13/2022. The patient was admitted to [facility]. The patient was taken to the operating [...] Transfuse Red Blood Blood Bank Routine 03/13/20 22 2:27 PM CDT Cells : Prepare Red Blood Blood Bank Routine 03/16/2022 7:26 AM CDT Cells, 1 Units Scheduled Referrals Name Type Priority Associated Diagnoses Order S [facility] Surgery Outpatient Referral Routine Expec latonya: office [...] IV CONTRAST COMPARISON: ??[facility], including most recent CT from [...] Mcginnis P.A.-C. M.S. IMG CT PROCEDURES (ABNORMAL) Comprehensive Metabolic [...] M.S. LAB BLOOD ADD-ON Performing Organization Address City/[facility] Phon e Number [facility] - [address] [place] [address] Bilirubin, Direct (04/19/2022 9:47 AM CDT) P athologist Signature Bilirubin, <0.2 0.0 - 0.3 04/19/2022 DT Direct, S mg/dL 11:02 AM CDT Specimen Anatomical Collection Method Collection Time Receive d Time (Source) Location / / Volume Laterality Blood (Blood, 04/19/2022 9:47 AM 04/19/20 Venous) CDT 10:32 AM CDT Aleyda Mcginnis P.A.-C., M.S. LAB BLOOD ADD-ON Performing Organization Address City/[facility] Phon e Number [facility] - [address] [place] [address] [place] [address] (ABNORMAL) Prothrombin Time (PT) (04/19/2022 9:47 AM [...] M.S. LAB BLOOD ADD-ON Performing Organization Address City/[facility] Code Phon e Number [facility] - [address] [place], [place] [address] [facility] [place] [address] [facility] 200 [facility] Basic Metabolic Panel (03/18/2022 6:27 AM CDT) [...] 6:50 Venous) CDT AM CDT Nazario Bailey APRN C.N.P., D.N.P., M.S.N. LAB BLOOD AD D-ON Performing Organization Address City/State/ZIP Code Phon e Number [facility] - [address] [place] [address] Laboratories-[address] (ABNORMAL) CBC without Differential (03/18/2022 6:27 AM CDT) Patholo gist Method Time Signature Hemoglobin 8.3 (L) 11.6 [...] Organization Address City/State/ZIP Code Phon e Number [facility] - [address] [place] [address] [place] [address] Laboratories-[address] (ABNORMAL) Basic Metabolic Panel (2022 3:43 AM [...] Organization Address City/State/ZIP Code Phon e Number [facility] - [address] [place] [address] [facility] [place] [address] [facility] 200 [facility] (ABNORMAL) CBC without Differential (2022 3:43 AM CDT) [facility] gist Method Time Signature Hemoglobin 7.3 [...] CDT Leukocytes 7.1 3.4 - 9.6 2022 [facility] x10(9)/L 4:55 AM CDT Comment: Corrected for normoblasts. Specimen Anatomical Collection Method Collection Time Receive d Time (Source) Location / / Volume Laterality Blood (Blood, 2022 3:43 AM 03/17/20 3:57 Venous) CDT AM CDT Nazario Bailey APRN, C.N.P., D.N.P., M.S.N. LAB BLOOD AD D-ON Performing Organization Address City/State/ZIP Code Phon e Number [facility] - [address] [place], [place] [address] [facility] [place] [address] [facility] [address] [place] [address] [facility] [address] (ABNORMAL) Hepatic Function Panel (03/16/2022 1:22 PM CDT) [facility] Method Time Signature Bilirubin, Total, [...] PM 03/16/20 2:01 Venous) CDT PM CDT Vanda Bustamante APRN.N.PZahraa, Haydee.N.P., M.S.N. LAB BLOOD AD D-ON Performing Organization Address City/[facility] Phon e Number [facility] - [address] [place], [place] [address] [facility] [place] [address] [facility] 200 [facility] (ABNORMAL) CBC without Differential (03/16/2022 1:22 PM CDT) [facility] Method Time Signature Hemoglobin 7.6 [...] Laterality Blood (Blood, 03/16/2022 1:22 PM 03/16/20 22 1:42 Venous) CDT PM CDT Vanda Bustamante APRN.N.P., D.N.P., M.S.N. LAB BLOOD AD D-ON Performing Organization Address City/[facility]/ZIP Code Phon e Number [facility] - [address] [place], [place] [address] [facility] [place] [address] [facility] 200 [facility] Transfuse Red Blood Cells : (03/16/2022 1:04 PM CDT) Nazario Bailey APRN, C.N.P., Hayede.N.P., M.S.N. BLOOD TRANSF USION ORDERABLES Transfuse Red Blood Cells : , 1 Units (03/16/2022 1:04 PM CDT) Nazario Bailey APRN, C.N.P., Haydee.N.P., M.S.N. BLOOD TRANSF USION ORDERABLES (ABNORMAL) CBC without Differential (03/16/2022 9:04 AM CDT) [facility] Method Time Signature Hemoglobin 7.1 (L) 11.6 [...] AM 03/16/20 9:13 Venous) CDT AM CDT Ritesh Bustamante APRNNBrock, Haydee.N.P., M.S.N. LAB BLOOD AD D-ON Performing Organization Address City/State/ZIP Code Phon e Number [facility] - [address] [place] [address] [facility] [place] [address] Laboratories-[address] Type and Screen (with reflex Antibody ID) (03/16/2022 7:26 AM CDT) [facility] Method Time Signature ABORh A [...] Laterality Blood (Blood, 03/16/2022 7:26 AM 03/16/20 7:45 Venous) CDT AM CDT Nazario Bailey APRN, C.N.P., D.N.P., M.S.N. LAB BLOOD BA NK TEST ORDERABLES Performing Organization Address [facility] Phon e Number [facility] - [address] [place] [address] [facility] [place] [place] [address] Laboratories-[address] (ABNORMAL) Thromboelastograph, Kaolin + Heparinase (03/16/2022 7:24 AM CDT) [facility] Method Time Signature R-Heparinase, 5.2 1.9 - 6.5 03/16/2022 METH TEG min 9:37 AM CDT K-Heparinase, 0.8 (L) 0.9 - 1.8 03/16/2022 METH TEG min 9:37 AM CDT Angle-Heparina 79.7 (H) 65.5 - 77.1 03/16/2022 METH se, TEG degrees 9:37 AM CDT MA-Heparinase, >90.0 (H) 58.2 - 76.2 03/16/2022 METH TEG mm 9:37 AM CDT [id number] 0.0 0.0 - 4.7 % 03/16/2022 METH e, TEG 9:37 AM CDT Qy68-Fuyjkxmib 0.0 0.0 - 15.0 03/16/2022 METH e, TEG % 9:37 AM CDT Specimen Anatomical Collection Method Collection Time Receive d Time (Source) Location / / Volume Laterality Blood (Blood, 03/16/2022 7:24 AM 03/16/20 22 7:29 Venous) CDT AM CDT Nazario Bailey APRN, C.N.P., D.N.P., M.S.N. LAB BLOOD NO N ADD-ON Performing Organization Address [facility] Phon e Number [address] [address] [address] [facility] [place] [address] [facility]-[address] (ABNORMAL) Troponin T, 2H/6H, 5th Gen (03/16/2022 2:54 AM CDT) [facility] gist Method Time Signature Troponin T, 2 [...] Blood (Blood, 03/16/2022 2:54 AM 03/16/20 22 3:17 Venous) CDT AM CDT Narrative [facility] - 03/16/2022 3:40 AM CDT Specimen Information: Specimen ID: [id number] Specimen Type: Blood Specimen Collection Start Date: ??2:54 AM Specimen Received Date: 03/16/2022 ??3:17 AM Specimen ID: [id number] Specimen Type: Blood Mason Ardon LAB BLOOD TROPONIN Performing Organization Address City/[facility] Code Phon e Number [address] [place] [address] Phosphorus Inorganic (03/16/2022 2:54 AM CDT) P athologist Signature Phosphorus 3.0 2.5 - 4.5 03/16/2022 DTL (Inorganic), S mg/dL 3:40 AM CDT Specimen Anatomical Collection Method Collection Time Receive d Time (Source) Location / / Volume Laterality Blood (Blood, 03/16/2022 2:54 AM 03/16/20 3:16 Venous) CDT AM CDT Aleyda Mcginnis P.A.-C., M.S. LAB BLOOD ADD-ON Performing Organization Address City/[facility] Phon e Number [facility] - [address] [place] [address] (ABNORMAL) Magnesium (03/16/2022 2:54 AM CDT) P athologist Signature Magnesium, S 2.7 (H) 1.7 - 2.3 03/16/2022 DTL mg/dL 3:40 AM CDT Specimen Anatomical Collection Method Collection Time Receive d Time (Source) Location / / Volume Laterality Blood (Blood, 03/16/2022 2:54 AM 03/16/20 3:16 Venous) CDT AM CDT Aleyda Mcginnis P.A.-C., M.S. LAB BLOOD ADD-ON Performing Organization Address City/State/[facility] Phon e Number [facility] - [address] (ABNORMAL) CBC without Differential (03/16/2022 2:54 [...] 3:02 Venous) CDT AM CDT Aleyda Mcginnis P.A.-C., M.S. LAB BLOOD ADD-ON Performing Organization Address City/State/ZIP Code Phon e Number [facility] - [address] [place], [place] [address] [facility] [place] [address] [facility] [address] [place] [address] [facility] [address] [facility] (ABNORMAL) Basic Metabolic Panel (03/16/2022 2:54 AM CDT) P athologist Signature Potassium, S [...] Organization Address City/State/ZIP Code Phon e Number [facility] [facility] - [address] [place] [address] 05 [facility] [place] [address] [facility] [address] DX Chest Portable 1 [...] AlexandraS. IMG DIAGNOSTIC IMAGING PROCE DURES (ABNORMAL) SPSMA Result (03/15/2022 11:42 PM CDT) [facility] Method Time Signature Neutrophilic Segs [...] Manual Absolute 9.95 (H) 1.56 - 03/16/2022 DHPM Neutrophil Count 6.45 2:01 AM CDT x10(9)/L Comment: ----ADDITIONAL INFORMATION---- The manual absolute neutrophil count is derived from a manual differential count and therefore is not exactly comparable to the automated absolute halie trophil count. Specimen Anatomical Collection Method Collection Time Receive d Time (Source) Location / / Volume Laterality Blood 03/15/2022 11:42 03/15/2022 PM CDT 11:47 PM CDT Mason ArringtonB.S. LAB BLOOD ADD-ON Performing Organization Address City/State/ZIP Code Phon e Number [facility] - [address] [place], [place] [address] [place] [address] [facility] [address] (ABNORMAL) CBC with Differential, Blood (03/15/2022 11:42 PM CDT) [facility] Method Time Signature Hemoglobin 6.8 [...] Leukocytes 11.7 (H) 3.4 - 9.6 03/16/2022 DHPM x10(9)/L 2:01 AM CDT Comment: Corrected for normoblasts. Neutrophils SeeComment 1.56 - 6.45 x10(9)/L 03/16/2022 2:01 AM CDT DHPM Comment: Auto-diff results not valid. Se e manual differential. Specimen Anatomical Collection Method Collection Time Receive d Time (Source) Location / / Volume Laterality Blood (Blood, 03/15/2022 11:42 03/15/2022 Venous) PM CDT 11:47 PM CDT Mason ArringtonB.S. LAB BLOOD ADD-ON Performing Organization Address City/State/ZIP Code Phon e Number [facility] - 200 [place], [place] [address] [facility] [place] [address] Laboratories-[address] [address] [address] (ABNORMAL) Troponin T, Baseline, 5th gen (03/15/2022 11:42 PM CDT) P athologist Signature Troponin T, 13 (H) <=10 ng/L 03/16/2022 DTL Baseline, 5th 12:33 AM CDT gen Specimen Anatomical Collection Method Collection Time Receive d Time (Source) Location / / Volume Laterality Blood (Blood, 03/15/2022 11:42 03/16/2022 Venous) PM CDT 12:10 AM CDT Mason ArringtonB.S. LAB BLOOD TROPONIN Performing Organization Address City/State/ZIP Code Phon e Number [facility] - [address] [place] [address] [facility] [place] [address] [facility] 200 [facility] ECG 12 Lead (03/15/2022 11:26 PM CDT) P athologist Signature Ventricular Rate 82 BPM MUSE ECG/Min LA Interval 150 ms MUSE QRSD Interval 84 ms MUSE QT Interval 374 ms MUSE QTC Interval 436 ms MUSE P Berne 15 degrees MUSE R Berne 55 degrees MUSE T Wave Berne 62 degrees MUSE Specimen Anatomical Collection Method [...] Phon e Number MUSE MUSE NA (ABNORMAL) CBC without Differential (03/15/2022 6:55 PM CDT) Patholo gist Method Time Signature Hemoglobin 7.1 (L) [...] Laterality Blood (Blood, 03/15/2022 6:55 PM 03/15/20 7:02 Venous) CDT PM CDT Aleyda Mcginnis P.A.-C., M.S. LAB BLOOD ADD-ON Performing Organization Address City/State/[facility] Code Phon e Number [facility] - [address] [place] [address] 05 [facility] [place] [address] [facility] 200 [facility] (ABNORMAL) CBC without Differential (03/15/2022 8:19 AM CDT) [facility] gist Method Time Signature Hemoglobin 7.3 [...] Laterality Blood (Blood, 03/15/2022 8:19 AM 03/15/20 8:28 Venous) CDT AM CDT Hema Rothman M.D. LAB BLOOD ADD-ON Performing Organization Address City/[facility] [place] Phon e Number [facility] - [address] (ABNORMAL) NT-Pro B-Type Natriuretic Peptide (BNP) [...] 5:00 Venous) CDT AM CDT Rajani Clark APRN, C.N.P., M.S.N. LAB BLOOD ADD-ON Performing Organization Address City/[facility] [place] Phon e Number [facility] - [id number] [place] [address] (ABNORMAL) Basic Metabolic Panel (03/15/2022 4:33 AM CDT) athologist Signature Potassium, S 5.2 3.6 - 5.2 03/15/2022 [...] AM 03/15/20 4:59 Venous) CDT AM CDT Rajani Clark APRN C.N.P., M.S.N. LAB BLOOD ADD-ON Performing Organization Address City/State/ZIP Code Phon e Number [facility] - [address] [place] [address] 05 [facility] [place] [address] [facility] 200 [facility] (ABNORMAL) CBC without Differential (03/15/2022 4:33 AM CDT) [facility] gist Method Time Signature Hemoglobin 7.2 [...] M.S.N. LAB BLOOD ADD-ON Performing Organization Address City/[facility] [place] Phon e Number [facility] - 200 [place], [place] [address] [place] [address] [facility] 200 [facility] Heparin Anti-Xa Assay (03/15/2022 4:33 AM CDT) P athologist Signature Heparin 0.12 IU/mL 03/15/2022 DTL Anti-Xa, P 5:33 AM CDT Comment: UFH [...] LAB BLOOD NON ADD-ON Performing Organization Address City/[facility]/ZIP Code Phon e Number [facility] - [address] [place], [place] [address] [facility] [place] [place] [address] [address] (ABNORMAL) Thromboelastograph, Kaolin, Blood (03/15/2022 4:32 AM CDT) [facility] Method Time Signature R, Kaolin, TEG 7.2 [...] 4:35 Venous) CDT AM CDT Ramone Stone APRN C.N.P., M.S.N. LAB BLOOD NON ADD-ON Performing Organization Address City/State/ZIP Code Phon e Number [facility] - [address] [place], [place] [address] [facility] [place] [address] Laboratories[address] (ABNORMAL) Thromboelastograph, Kaolin + Heparinase (03/15/2022 4:32 AM CDT) [facility] Method Time Signature R-Heparinase, 6.3 1.9 - 6.5 03/15/2022 M[facility] TEG min 7:03 AM CDT K-Heparinase, 1.0 0.9 - 1.8 03/15/2022 M[facility] TEG min 7:03 AM CDT Angle-Heparina 74.8 65.5 - 77.1 03/15/2022 METH se, TEG degrees 7:03 AM CDT MA-Heparinase, 80.7 (H) 58.2 - 76.2 03/15/2022 M[facility] TEG mm 7:03 AM CDT Ca42-Farjuqezj 0.0 0.0 - 4.7 % 03/15/2022 METH e, TEG 7:03 AM CDT Zc52-Aqlotutuo 0.0 0.0 - 15.0 % 03/15/2022 METH e, TEG 7:03 AM CDT Specimen Anatomical Collection Method Collection Time Receive d Time (Source) Location / / Volume Laterality Blood 03/15/2022 4:32 AM 4:35 CDT AM CDT Rajani Clark APRN C.N.P., M.S.N. LAB BLOOD NON ADD -ON Performing Organization Address City/State/ZIP Code Phon e Number [facility] - [address] [place] [address] 05 [facility] [place] [address] [facility] 200 [facility] (ABNORMAL) CBC without Differential (03/14/2022 7:58 PM CDT) [facility] gist Method Time Signature Hemoglobin 7.9 [...] Organization Address City/State/ZIP Code Phon e Number [facility] - [address] [place], [place] [address] [facility] [place] [address] [facility] [address] Transfuse Red Blood Cells : (03/14/2022 5:01 PM CDT) Rajani Clark APRN, C.N.P., M.S.N. BLOOD TRANSFUSION ORDERABLES Transfuse Red Blood Cells : , 1 Units (03/14/2022 5:01 PM CDT) Rajani Clark APRN, C.N.P., M.S.N. BLOOD TRANSFUSION ORDERABLES (ABNORMAL) CBC without Differential (03/14/2022 11:57 AM CDT) [facility] Method Time Signature Hemoglobin 7.0 (L) 11.6 [...] M.S.N. LAB BLOOD ADD-ON Performing Organization Address City/[facility] [place] Phon e Number [facility] - [address] [address] Laboratories-[address] Heparin Anti-Xa Assay (03/14/2022 11:57 AM CDT) P athologist Signature Heparin 0.11 IU/mL 03/14/2022 DT Anti-Xa, P 12:21 PM CDT Comment: UFH [...] LAB BLOOD NON ADD-ON Performing Organization Address City/[facility] [place] Phon e Number [facility] - [address] [address] [facility]-[address] (ABNORMAL) Thromboelastograph, Kaolin + Heparinase (03/14/2022 9:00 AM CDT) Patholo gist Method Time Signature R-Heparinase, 4.3 1.9 - 6.5 03/14/2022 METH TEG min 10:28 AM CDT K-Heparinase, 1.1 0.9 - 1.8 03/14/2022 M[facility] TEG min 10:28 AM CDT Angle-Heparina 74.6 65.5 - 77.1 03/14/2022 M[facility] se, TEG degrees 10:28 AM CDT MA-Heparinase, 79.2 (H) 58.2 - 76.2 03/14/2022 M[facility] TEG mm 10:28 AM CDT Jy22-Kbslxekzr 0.0 0.0 - 4.7 % 03/14/2022 METH e, TEG 10:28 AM CDT Ki70-Wsnajhpty 0.0 0.0 - 15.0 % 03/14/2022 METH e, TEG 10:28 AM CDT Specimen Anatomical Collection Method Collection Time Receive d Time (Source) Location / / Volume Laterality Blood 03/14/2022 9:00 AM 9:03 CDT AM CDT Marjorie Ardon LAB BLOOD NON ADD-ON Performing Organization Address City/[facility] Code Phon e Number [facility] - 200 [place], [place] [address] [place] [address] [facility] 200 [facility] Heparin Anti-Xa Assay (03/14/2022 6:13 AM [...] Organization Address City/State/ZIP Code Phon e Number [facility] - 200 [place], [place] [address] [facility] [place] [address] [facility] 200 [facility] (ABNORMAL) CBC without Differential (03/14/2022 6:13 AM CDT) [facility] Method Time Signature Hemoglobin 7.5 (L) 11.6 [...] Organization Address City/State/ZIP Code Phon e Number [facility] - 200 [place], [place] [address] [facility] [place] [address] [facility] 200 [facility] (ABNORMAL) Thromboelastograph, Kaolin + Heparinase (03/14/2022 6:11 AM CDT) [facility] Method Time Signature R-Heparinase, 4.2 1.9 - 6.5 03/14/2022 METH TEG min 8:17 AM CDT K-Heparinase, 1.1 0.9 - 1.8 03/14/2022 METH TEG min 8:17 AM CDT Angle-Heparina 75.1 65.5 - 77.1 03/14/2022 M[facility] se, TEG degrees 8:17 AM CDT MA-Heparinase, 76.7 (H) 58.2 - 76.2 03/14/2022 M[facility] TEG mm 8:17 AM CDT Zg57-Hajninhhc 0.0 0.0 - 4.7 % 03/14/2022 M[facility] e, TEG 8:17 AM CDT Tl16-Tncubzlje CANCELED % 03/14/2022 M[facility] e, TEG 8:17 AM CDT Comment: Unable to complete testing due to an ass ay/equipment issue. Result canceled by the ancillary. Specimen Anatomical Collection Method Collection Time Receive d Time (Source) Location / / Volume Laterality Blood (Blood, 03/14/2022 6:11 AM 03/14/20 6:17 Venous) CDT AM CDT Rosie Staples P.A.-C., M.S. LAB BLOOD NON ADD-ON Performing Organization Address City/[facility] [place] Phon e Number [facility] - [address] [place] [address] (ABNORMAL) pH (03/13/2022 5:00 PM CDT) P athologist Signature pH 7.28 (L) 7.35 - 7.45 03/13/2022 [facility] pH 5:13 PM CDT Specimen Anatomical Collection Method Collection Time Receive d Time (Source) Location / / Volume Laterality Blood 03/13/2022 5:00 PM 5:08 CDT PM CDT Leena Trujillo M.D. LAB HISTORICAL OR DERS Performing Organization Address [facility] [place] Phon e Number [facility] - [address] (ABNORMAL) Phosphorus Inorganic (03/13/2022 5:00 PM CDT) P athologist Signature Phosphorus 6.2 (H) 2.5 - 4.5 03/13/2022 DTL (Inorganic), S mg/dL 6:13 PM CDT Specimen Anatomical Collection Method Collection Time Receive d Time (Source) Location / / Volume Laterality Blood (Blood, 03/13/2022 5:00 PM 03/13/20 22 5:35 Venous) CDT PM CDT Leena Trujillo M.D. LAB BLOOD ADD-ON Performing Organization Address City/[facility] Code Phon e Number [facility] - 200 [place], [place] [address] [facility] [place] [address] Laboratories[address] (ABNORMAL) Magnesium (03/13/2022 5:00 PM CDT) P athologist Signature Magnesium, S 2.8 (H) 1.7 - 2.3 03/13/2022 DTL mg/dL 6:13 PM CDT Specimen Anatomical Collection Method Collection Time Receive d Time (Source) Location / / Volume Laterality Blood (Blood, 03/13/2022 5:00 PM 03/13/20 22 5:35 Venous) CDT PM CDT Leena Trujillo M.D. LAB BLOOD ADD-ON Performing Organization Address City/[facility] Code Phon e Number [facility] - [address] [place], [place] [address] 05 [place] [address] Laboratories-[address] (ABNORMAL) CBC without Differential (03/13/2022 5:00 [...] M.D. LAB BLOOD ADD-ON Performing Organization Address City/[facility] [place] Phon e Number [facility] - [address] [place] [address] Calcium, Ionized (03/13/2022 5:00 PM CDT) P athologist Signature Calcium, 5.23 4.65 - 5.30 03/13/2022 [facility] Ionized, B mg/dL 5:13 PM CDT Specimen Anatomical Collection Method Collection Time Receive d Time (Source) Location / / Volume Laterality Blood (Blood, 03/13/2022 5:00 PM 03/13/20 22 5:08 Venous) CDT PM CDT Leena Trujillo M.D. LAB BLOOD NON ADD -ON Performing Organization Address City/[facility] [place] Phon e Number [facility] - [address] [place], [place] [phone] [address] (ABNORMAL) Basic Metabolic Panel (03/13/2022 5:00 [...] Organization Address City/State/ZIP Code Phon e Number [facility] - [address] [place] [address] 05 [facility] [place] [place] [address] [facility] 200 [facility] (ABNORMAL) Thromboelastograph, Kaolin, Blood (03/13/2022 4:57 [...] Organization Address City/State/ZIP Code Phon e Number [facility] - [address] [place], [place] [address] 05 [facility] [place] [address] [facility] [address] DX Chest 1 View (03/13/2022 4:05 [...] Hema [place] M.D. IMG DIAGNOSTIC IMAGING PROCE NADINE DX Abdomen 1 View (03/13/2022 4:05 PM [...] DURES Patient Status (03/13/2022 3:10 PM CDT) athologist Signature Temperature 36.7 37.0 deg C 03/13/2022 [facility] 3:10 PM CDT FIO2 0.36 0.21=AIR 03/13/2022 [facility] 3:10 PM CDT Specimen Anatomical Collection Method Collection Time Receive d Time (Source) Location / / Volume Laterality Blood 03/13/2022 3:10 PM 3:10 CDT PM CDT Cristian Ingram APRN, DUNG LAB BLOOD NON ADD-ON Performing Organization Address City/[facility] Code Phon e Number [facility] - [address] (ABNORMAL) Lactate, B (03/13/2022 3:10 PM CDT) athologist [facility] Lactate, B 3.0 (H) 0.5 - 2.2 03/13/2022 [facility] mmol/L 3:12 PM CDT Specimen Anatomical Collection Method Collection Time Receive d Time (Source) Location / / Volume Laterality Blood (Blood, 03/13/2022 3:10 PM 03/13/20 22 3:10 Venous) CDT PM CDT Aleyda Giron M.D. LAB BLOOD NON ADD-ON Performing Organization Address City/[facility] [place] Phon e Number [facility] - [address] (ABNORMAL) Glucose, Whole Blood (03/13/2022 3:10 PM CDT) athologist Signature Glucose 228 (H) 70 - 140 03/13/2022 [facility] mg/dL 3:12 PM CDT Specimen Anatomical Collection Method Collection Time Receive d Time (Source) Location / / Volume Laterality Blood (Blood, 03/13/2022 3:10 PM 03/13/20 22 3:10 Arterial Line) CDT PM CDT Aleyda Giron M.D. LAB BLOOD TROPONIN Performing Organization Address City/State/ZIP Code Phon e Number [facility] - [address] [place], [place] [address] [place] [id number] [facility] [address] Potassium, Blood (03/13/2022 3:10 PM [...] Organization Address City/State/ZIP Code Phon e Number [facility] - [address] [place], [place] [address] 05 [place] [address] [facility] [address] Sodium, B (03/13/2022 3:10 PM CDT) athologist Signature Sodium, B 136 135 - 145 03/13/2022 3:12 [facility] mmol/L PM CDT Specimen Anatomical Collection Method Collection Time Receive d Time (Source) Location / / Volume Laterality Blood (Blood, 03/13/2022 3:10 PM 03/13/20 22 3:10 Arterial Line) CDT PM CDT Aleyda Giron M.D. LAB BLOOD NON ADD-ON Performing Organization Address City/State/ZIP Code Phon e Number [facility] - [address] [place], [place] [address] [place] [address] [facility] [address] Calcium, Ionized (03/13/2022 3:10 PM CDT) athologist [...] Organization Address City/State/ZIP Code Phon e Number [facility] - [address] [place], [place] [address] [facility] [place] [address] [facility] [address] [facility] (ABNORMAL) Blood Gas with Coox, Arterial (03/13/2022 3:10 PM CDT) athologist Signature pO2 107 83 - 108 [...] Organization Address City/State/ZIP Code Phon e Number [facility] - [address] [place], [place] [address] [facility] [place] [address] [facility] [address] Leukemia/Lymphoma Immunophenotyping by Flow Cytometry, Tissue (03/13/2022 2:41 PM CDT) Component Value Ref Test Analysis Performed At [facility] gist Range Method Time Signature LLPT Result Performed 03/14/2022 DTL 3:31 PM CDT Final These results are considered preliminary and require complete integration 03/14/2022 DTL Diagnosis: with the current pathology c [facility] [id number] for final interpretation. ??The 3:31 PM CDT result should NOT be interpreted in isolation for the purp oses of diagnosis or clinical management. Spleen, specimen for flow cytometric analysis ([id number]): No monotypic B-cell population, phenotypically abnorma l [...] reagent. Its performance characteristics were determined by [facility] in a manner consistent with CLIA [...] M.D. LAB GENETIC TESTING Performing Organization Address City/State/[facility] Code Phon e Number [facility] - 200 [place] [address] 05 [facility] DTL [address] Patient Status (03/13/2022 2:13 PM CDT) P athologist Signature Temperature 36.7 37.0 deg C 03/13/2022 [facility] 2:13 PM CDT Specimen Anatomical Collection Method Collection Time Receive d Time (Source) Location / / Volume Laterality Blood 03/13/2022 2:13 PM 2:13 CDT PM CDT Memo Reyes STAPLE SHEAR OPERATOR, INJECTION SPECIALIST, MNA LAB BLOOD NON ADD-ON Performing Organization Address [facility] [place] Phon e Number [facility] - [address] [place] [address] STMA [place] [phone] [address] (ABNORMAL) CBC with Differential, Blood (03/13/2022 2:13 PM CDT) Patholo gist Method Time Signature Hemoglobin 7.4 (L) 11.6 [...] M.D. LAB BLOOD ADD-ON Performing Organization Address City/[facility] [place] Phon e Number [facility] - [address] (ABNORMAL) Glucose, Whole Blood (03/13/2022 2:13 PM CDT) athologist Signature Glucose 243 (H) 70 - 140 03/13/2022 [facility] mg/dL 2:16 PM CDT Specimen Anatomical Collection Method Collection Time Receive d Time (Source) Location / / Volume Laterality Blood (Blood, 03/13/2022 2:13 PM 03/13/20 22 2:13 Arterial Line) CDT PM CDT Dena Coon M.D. LAB BLOOD TROPONIN Performing Organization Address City/[facility] [place] Phon e Number [facility] - [address] Potassium, Blood (03/13/2022 2:13 PM CDT) athologist Signature Potassium, B 4.2 3.6 - 5.2 03/13/2022 [facility] mmol/L 2:16 PM CDT Specimen Anatomical Collection Method Collection Time Receive d Time (Source) Location / / Volume Laterality Blood (Blood, 03/13/2022 2:13 PM 03/13/20 22 2:13 Arterial Line) CDT PM CDT Dena Coon M.D. LAB BLOOD NON ADD-ON Performing Organization Address City/[facility]/ZIP [facility] Phon e Number [facility] - 200 [place], [place] [address] 05 [place] [address] Sodium, B (03/13/2022 2:13 PM CDT) athologist Signature Sodium, B 137 135 - 145 03/13/2022 2:16 [facility] mmol/L PM CDT Specimen Anatomical Collection Method Collection Time Receive d Time (Source) Location / / Volume Laterality Blood (Blood, 03/13/2022 2:13 PM 03/13/20 22 2:13 Arterial Line) CDT PM CDT Dena Coon M.D. LAB BLOOD NON ADD-ON Performing Organization Address City/[facility]/ZIP Code Phon e Number [facility] - 200 [place], [place] [address] 05 [place] [address] (ABNORMAL) Calcium, Ionized (03/13/2022 2:13 PM CDT) P athologist Signature Calcium, 5.58 (H) 4.65 - 03/13/2022 [facility] Ionized, B 5.30 mg/dL 2:16 PM CDT Specimen Anatomical Collection Method Collection Time Receive d Time (Source) Location / / Volume Laterality Blood (Blood, 03/13/2022 2:13 PM 03/13/20 22 2:13 Arterial Line) CDT PM CDT Dena Coon M.D. LAB BLOOD NON ADD-ON Performing Organization Address City/[facility]/ZIP Code Phon e Number [facility] - 200 [place], [place] [address] 05 [facility] [address] (ABNORMAL) Blood Gas with Coox, Arterial (03/13/2022 2:13 PM CDT) P athologist Signature pO2 335 (H) 83 - [...] Organization Address City/State/ZIP Code Phon e Number [facility] - [address] [place], [place] [address] [facility] [place] [address] [facility] [address] (ABNORMAL) Thromboelastograph, Kaolin, Blood (03/13/2022 2:12 PM CDT) Patholo gist Method Time Signature R, Kaolin, TEG 4.9 4.0 - 9.0 03/13/2022 [facility] min 3:16 PM CDT K, Kaolin, TEG 1.8 (H) 0.9 - 1.7 03/13/2022 [facility] min 3:16 PM CDT AngleBabatunde, 66.1 (L) 66.2 - 80.3 03/13/2022 [facility] TEG degrees 3:16 PM CDT MABabatunde, 62.6 55.2 - 77.0 03/13/2022 [facility] TEG mm 3:16 PM CDT Ly30Babatunde, 0.0 0.0 - 4.8 % 03/13/2022 [facility] TEG 3:16 PM CDT Specimen Anatomical Collection Method Collection Time Receive d Time (Source) Location / / Volume Laterality Blood (Blood, 03/13/2022 2:12 PM 03/13/20 2:12 Arterial Line) CDT PM CDT Dena Coon M.D. LAB BLOOD NON ADD-ON Performing Organization Address City/State/ZIP Code Phon e Number [facility] - [address] [place] [address] 05 [place] [address] [facility] 200 [facility] Surgical Pathology, Frozen Lab (03/13/2022 1:46 PM CDT) Component Value Ref Test Analysis Performed Pathologis t Range Method Time At Signature 03[facility] PM CDT Report Sonia Boone M.D. 03/19/2022 [facility] electronically 4:43 PM signed by CDT I [...] homogenous. ??Hilar lymph nodes are not identified. ??Senior Recruiter tissue submitted for permanent sections. ??Grossed by BRIAN Junior (Ann Marie)(ASCP) . Block Summary A Spleen 03/19/2022 [facility] A1 Possible hemangioma - 1 4:43 PM A2 Possible hemangioma - 2 CDT A3 Senior Recruiter infarcts - 1 A4 Senior Recruiter infarcts - 2 A5 Senior Recruiter infarcts - 3 A6 Additional sections of spleen - 1 A7 Additional sections of spleen - 2 A8 Additional sections of spleen - 3 A9 Additional sections of spleen - 4 A10 Additional sections of spleen - 5 Disclaimer This test was developed using an analyte specific reag ent. 03/19/2022 [facility] Its performance characteristics were determined by [employer] 4:43 PM [facility] in a manner consistent with CLIA requirements. [...] Organization Address City/State/ZIP Code Phon e Number [facility] - [address] [place], [place] [address] [place] [address] Laboratories-[address] Transfuse Red Blood Cells : (03/13/2022 [...] Organization Address City/State/ZIP Code Phon e Number [address] [address] [place] [address] [facility]-[address] (ABNORMAL) Blood Gas with Coox, Arterial (03/13/2022 1:24 PM CDT) P athologist Signature pO2 60 (L) 83 - [...] LAB BLOOD NON ADD-ON Performing Organization Address City/[facility] Code Phon e Number [facility] [phone] [place] [address] Patient Status (03/13/2022 12:20 PM CDT) P athologist Signature Temperature 36.6 37.0 deg C 03/13/2022 [facility] 12:20 PM CDT FIO2 0.51 0.21=AIR 03/13/2022 [facility] 12:20 PM CDT Specimen Anatomical Collection Method Collection Time Receive d Time (Source) Location / / Volume Laterality Blood 03/13/2022 12:20 03/13/2022 PM CDT 12:20 PM CDT Memo Reyes STAPLE SHEAR OPERATOR, INJECTION SPECIALIST, MNA LAB BLOOD NON ADD-ON Performing Organization Address City/[facility] Phon e Number [facility] [address] [address] (ABNORMAL) Blood Gas with Coox, Arterial [...] Organization Address City/State/ZIP Code Phon e Number [facility] - [address] [place], [place] [address] [facility] [place] [address] Laboratories-[facility] [address] Transfuse Platelets : (03/13/2022 12:04 PM CDT) Dena Coon M.D. BLOOD TRANSFUSION ORDERABLES Patient Status (03/13/2022 11:13 AM CDT) athologist Signature FIO2 0.60 0.21=AIR 03/13/2022 11:14 [facility] AM CDT Specimen Anatomical Collection Method Collection Time Receive d Time (Source) Location / / Volume Laterality Blood 03/13/2022 11:13 03/13/2022 AM CDT 11:13 AM CDT Memo Reyes STAPLE SHEAR OPERATOR, INJECTION SPECIALIST, MNA LAB BLOOD NON ADD-ON Performing Organization Address City/State/[facility] Phon e Number [facility] - [address] [place], [place] [address] [place], [place] [phone] [place] [address] [address] [facility] Glucose, Whole Blood (03/13/2022 11:13 AM CDT) athologist Signature Glucose 102 70 - 140 03/13/2022 [facility] mg/dL 11:16 AM CDT Specimen Anatomical Collection Method Collection Time Receive d Time (Source) Location / / Volume Laterality Blood (Blood, 03/13/2022 11:13 03/13/2022 Arterial Line) AM CDT 11:13 AM CDT Dena Coon M.D. LAB BLOOD TROPONIN Performing Organization Address City/[facility] Code Phon e Number [facility] - [address] [place] [address] [facility] [place] [address] [facility] [address] Potassium, Blood (03/13/2022 11:13 AM CDT) athologist Signature Potassium, B 4.9 3.6 - 5.2 03/13/2022 [facility] mmol/L 11:16 AM CDT Specimen Anatomical Collection Method Collection Time Receive d Time (Source) Location / / Volume Laterality Blood (Blood, 03/13/2022 11:13 03/13/2022 Arterial Line) AM CDT 11:13 AM CDT Dena Coon M.D. LAB BLOOD NON ADD-ON Performing Organization Address City/State/ZIP Code Phon e Number [facility] - [address] Sodium, B (03/13/2022 11:13 AM CDT) athologist Signature Sodium, B 139 135 - 145 03/13/2022 [facility] mmol/L 11:16 AM CDT Specimen Anatomical Collection Method Collection Time Receive d Time (Source) Location / / Volume Laterality Blood (Blood, 03/13/2022 11:13 03/13/2022 Arterial Line) AM CDT 11:13 AM CDT Dena Coon M.D. LAB BLOOD NON ADD-ON Performing Organization Address [facility] Phon e Number [facility] - [address] [address] Laboratories-[address] Calcium, Ionized (03/13/2022 11:13 AM CDT) athologist Signature Calcium, 4.68 4.65 - 5.30 03/13/2022 [facility] Ionized, B mg/dL 11:16 AM CDT Specimen Anatomical Collection Method Collection Time Receive d Time (Source) Location / / Volume Laterality Blood (Blood, 03/13/2022 11:13 03/13/2022 Arterial Line) AM CDT 11:13 AM CDT Dena Coon M.D. LAB BLOOD NON ADD-ON Performing Organization Address City/[facility] Phon e Number [facility] - [address] [place] [address] [place] [address] (ABNORMAL) Blood Gas with Coox, Arterial (03/13/2022 [...] LAB BLOOD NON ADD-ON Performing Organization Address City/[facility] Phon e Number [facility] - 200 [place], [place] [address] [place] [address] (ABNORMAL) Prothrombin Time (PT) (03/13/2022 11:12 AM CDT) Patholo gist Method Time Signature Prothrombin 13.1 (H) 9.4 - 12.5 03/13/2022 [facility] Time, P sec 11:26 AM CDT INR [...] M.D. LAB BLOOD ADD-ON Performing Organization Address City/State/[facility] Phon e Number [facility] - 200 [place], [place] [address] [place] [address] Laboratories-[address] Fibrinogen (03/13/2022 11:12 AM CDT) P athologist Signature Fibrinogen, P 340 200 - 393 03/13/2022 [facility] mg/dL 11:25 AM CDT Specimen Anatomical Collection Method Collection Time Receive d Time (Source) Location / / Volume Laterality Blood (Blood, 03/13/2022 11:12 03/13/2022 Arterial Line) AM CDT 11:12 AM CDT Dena Coon M.D. LAB BLOOD ADD-ON Performing Organization Address City/[facility] Phon e Number [facility] - 200 [place], [place] [address] [facility] [address] APTT (Activated Partial Thromboplastin Time) (03/13/2022 11:12 AM CDT) P athologist Signature Activated 30 25 - 37 sec 03/13/2022 [facility] Partial 11:27 AM CDT Thrombopl Time, P Specimen Anatomical Collection Method Collection Time Receive d Time (Source) Location / / Volume Laterality Blood (Blood, 03/13/2022 11:12 03/13/2022 Arterial Line) AM CDT 11:12 AM CDT Dena Coon M.D. LAB BLOOD ADD-ON Performing Organization Address City/[facility] Phon e Number [facility] - 200 [place], [place] [address] [place] [address] Transfuse Red Blood Cells : (03/13/2022 9:17 AM CDT) Dena Coon M.D. BLOOD TRANSFUSION ORDERABLES documented in this encounter Visit Diagnoses Diagnosis Splenomegaly Acquired - Primary Splenomegaly Acquired Myelofibrosis Primary (HCC) Splenomegaly Acquired Splenomegaly Acquired Myelofibrosis Primary (HCC) documented in this encounter Admitting Diagnoses Diagnosis Splenomegaly Acquired documented in this encounter Administered Medications Inactive Administered Medications - up to 3 most recent administrations Medication Order MAR Action Action Date Dose Rate Site acetaminophen tablet 1,000 mg Given 03/18/2022 4:25 AM CDT 1,000 mg (TYLENOL) 1,000 mg, oral, Every 6 hours, First [...] Do NOT crush, chew or open capsule. bupivacaine liposome (PF) 20 Given 03/13/2022 2:45 PM CDT 71 mL Abdominal Tissue mL, bupivacaine 50 mL 70 mL injection As needed, Starting on Fri03/13/22 at 1445, Intra-Op calcium acetate(phosphat bind) capsule Given 03/18/2022 7:54 [...] 9:37 PM CDT 5 mg enoxaparin injection 90 mg (LOVENOX) 90 mg, subcutaneous, 2 times daily, First dose (after last modification) on 03/18/22 at 2100 HYDROmorphone (PF) injection 0.2 mg Given 03/16/2022 9:10 PM CDT 0.2 mg (DILAUDID) 0.2 mg, intravenous, Every 2 hour PRN, severe pain or score 7-10 of 10, Starting on 03/16/22 at 1141 Given 03/16/2022 5:52 PM CDT 0.2 mg ipratropium-albuteroL 0.5-2.5 mg/3 mL ne bulizer solution 3 mL (DUONEB) 3 mL, nebulization, 4 times daily PRN, w heezing, shortness of breath, Starting on Fri03/15/22 at 2306 menthol lozenge 1 lozenge Given 03/16/2022 10:40 [...] min PRN, respiratory depr ession, Starting on Fri03/14/22 at 1824, For 3 doses, For RASS [...] Given 03/16/2022 10:36 PM CDT 15 mg polyethylene glycol powder packet 1 packet Given 03/15 8:16 AM CDT 1 packet (MIRALAX) 1 packet, oral, Daily PRN, constipation, Starting on Fri03/13/22 at 2013, Ordered sequence of administration: polyethylene glycol, then bisacodyl until BM achieved. Avoid mixing with starch-based thickened liquids., Indications: constipation polysaccharide spheres Given 03/13/2022 2:35 PM 1 application Abdominal Tissue particles (JESSIE) CDT As needed, Starting on Fri03/13/22 at 1435, Intra-Op promethazine injection 6.25 mg (PHENERGA N) 6.25 [...] Given 03/16/2022 8:57 PM CDT 2 tablets thrombin (human Given 03/13/2022 2:50 10 mL Abdo rajesh Tissue plasma)-infilszsea-otaagiogz-Mm PM CDT topical solution (TISSEEL VHSD) As needed, Starting on Fri03/13/22 at 1450, Intra-Op documented in this encounter Active and Recently Administered Medications Times are shown in CDT. Scheduled Medication Order 03/16/2022 2022 03/18/2022 acetaminophen tablet 1,000 mg (TYLENOL) 0506 (Given - Provider: Yvette Lopez R.N.)1107 (Given - Provider: Sherron Puente R.N.)1710 (Given - Provider: Sherron Puente R.N.)2236 (Given - Provider: Nirmal ChNZahraa) 0540 (Given - Provider: Shira Anand R.N.)1137 [...] Puente R.N.) 0754 (Given - Provider: Sherron L Puente, R.N.) 1,334 mg, oral, 3 times daily with meals , First dose on Aruna 03/14/22 at 0800, 667 mg calcium acetate contains 169 mg of elemental calcium enoxaparin injection 60 mg (LOVENOX) (CANCELED) 0857 ( Given - Provider: Sherron Puente R.N.)2109 (Given - Provider: Candice Wing R.N.) 60 mg, subcutaneous, 2 times daily, First dose on 03/16/22 at 0900 enoxaparin injection 80 mg (LOVENOX) (CANCELED) 08 (Given - Provider: Sherron Puente R.N.)2007 (Given [...] 2057 (Given - Pro vider: Candice Wing REstefania) 2007 (Given - Provider: Shira Anand R.N.) 15 mg, oral, Daily at bedtime, First dos e on Fri03/13/22 at 2100, Swallow whole. Do NOT crush, chew, or split tablet. morphine ER tablet 60 mg (MS CONTIN) 803 (Given - Pro vider: Sherron Puente R.N.)2057 (Given - Provider: Candice Wing R.N.) 08 (Given - Provider: Sherron Puente R.N.)2007 (Given - Provider: Shira Anand R.N.) 0800 (Given - Provider: Sherron Puente R.N.) 60 [...] 0800 (Not Given - Provider: Sherron Gomez ms R.NZahraa - Reason: Patient/family refused) 2 tablet, oral, [...] 1752 (G iven - Provider: Sherron Puente R.N.)2110 (Given - Provider: Candice Wing R.N.) 0.2 [...] hours PRN, na usea, vomiting, Starting on Fri03/15/22 at 0857, Reassess [...] 10, Starting on Aruna 03/14/22 at 1823 2103 (Given - Provider: Shira Anand R.N.) oxyCODONE IR tablet 15 mg (ROXICODONE)(Linked Group 1) 1214 (See Alternative - Provider: Sherron Puente R.N.)1526 (Given - Provider: Sherron Puente R.N.)193 (Given - Provider: Candice Wing RZahraaNZahraa)2236 (Given - Provider: Candice Wing RZahraaN.) 0230 (See Alternative - Provider: Shira Anand [...] 10, Starting on Aruna 03/14/22 at 1823 1752 (See Alternative - Prov ider: Sherron L Puente, R.N.)2103 (See Alternative - Provider: Shira Anand [...] of 10, Starting on Fri03/14/22 at 1823 Or oxyCODONE IR tablet 15 mg (ROXICODONE)Jump to med 15 mg, oral, Every 3 hours PRN, severe p ain or score 7-10 of 10, Starting on Fri03/14/22 at 1823 documented in this encounter Care Teams Feed Mill Tender Relationship Specialty Start Date End Date Elsewhere, Pcp PCP - General 11/04/21 documented as of this encounter
--- OUTSIDE RECORDS SUMMARY | 2022-05-02 12:03 | XMS_ITS | Encounter Summary ---
:1970 Author Organization [facility] Address [address] [place] [address] Care Team Providers Name Role Phone Elsewhere, Pcp Primary Care Provider Unavailable Reason for Visit Reason Comments Appointment Encounter Details Date Type Department Care Team Description 02/28/2022 Clinical Communication Division of Hema Rothman A ppointment Hepatobiliary and M.D. 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 - 02/28/2022 11:56 AM CDT CHIEF COMPLAINT / REASON FOR CALL Appointment PLAN The following information was provided: Mr. Dobbs was called to let he and Jennifer know about upcoming appointments. Mr. Dobbs states he hadgotten a text about an appointment on March 12, 2022, but had not heard about multiple appointments. The list of appointments was given to Mr. Dobbs. I will request an itinerary be sent out to the [facility] so they have everything in writing. Mr. Dobbs was appreciative of the phone call and verbalized understanding of appointment and procedure/operation schedule. Information/Education: patient/caller able to teach back The following references were used: nursing clinical judgement documented in 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 Care Teams In Flight Crew Member Relationship Specialty Start Date End Date Elsewhere, Pcp PCP - General 11/04/21 documented as of this encounter
--- OUTSIDE RECORDS SUMMARY | 2022-05-02 12:03 | XMS_ITS | Encounter Summary ---
:1970 Author Organization [facility] Address [address] [place] [address] Care Team Providers Name Role Phone Elsewhere, Pcp Primary Care Provider Unavailable Reason for Visit Outpatient (Routine) - Closed Specialty Diagnoses / Procedures Referred By Contact Refer red To Contact Anesthesiology Diagnoses Splenomegaly Acquired Hema Rothman M.D. [facility] 200 [place], [place] [address] Referral ID Status Reason Start Date Expiration Date Visits Requ ested Visits Authorized [id number] Closed 02/26/2022 02/26/2023 1 1 Encounter Details Date Type Department Care Team Description 03/12/2022 Comprehensive Visit Preoperative Phuc Rothman M.D. [address] [place] [phone] Preanesthetic Medical Exam (Primary Dx); Evaluation Center in Fausto Gaona M.D. 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 - 03/12/2022 2:30 PM CDT REASON FOR VISIT: Preoperative Medical Evaluation REFERRING PHYSICIAN: Hema Rothman M.D. 03/13/2022: LAPAROSCOPIC SPLENECTOMY; Hema Rothman M.D. Surgery Specific Risk Classification: Elevated Risk SUBJECTIVE HISTORY OF PRESENT ILLNESS Jennifer Dobbs is a 51 y.o. female who is here for preanesthetic medical examination prior to the planned procedure as listed above. The following portions of the patient's history were reviewed and updated as appropriate: allergies,current medications, medical history, social history, surgical history and problem list. REVIEW OF SYSTEMS Gastrointestinal: Positive for abdominal (belly) pain or cramping, constipation and nausea. Cardiac Risk Scoring: DASI Calculations Flowsheet Row Comprehensive Visit from 03/12/2022 in Preoperative Evaluation Center in [place], [place] Estimated V02 Peak 15.08 Estimated MET Level 4.31 OBJECTIVE PHYSICAL EXAMINATION General/Constitutional Constitutional Assessment: Overweight General State of Health: Ill appearing Airway (HEENT) Mallampati: II Neck ROM: Limited Mouth Opening: > 3 cm Dental Assessment: Dentition intact Cardiovascular Rhythm: Regular Cardiovascular Assessment: Heart murmur Pulmonary Pulmonary Assessment: Clear and non labored Neurological Neurologic Assessment: Alert Musculoskeletal Ambulate with: Wheelchair Psychiatric Psychiatric Assessment: Calm Dermatology Skin Assessment: pallor Recent Results (from the past 72 hour(s)) CBC without Differential Collection Time: 03/12/22 8:55 AM Result Value Hemoglobin 6.5 (L) Hematocrit 21.7 (L) Erythrocytes 2.39 (L) MCV 90.8 RBC Distrib Width 25.3 (H) Platelet Count 53 (L) Leukocytes 3.6 Type and Screen (with reflex Antibody ID) Collection Time: 03/12/22 8:55 AM Result Value ABORh A Pos Antibody Screen Negative Type & Screen Expiration 03/15/2022 23:59 Testing Location [place] SARS Coronavirus 2, Molecular Detection, PCR, Varies Asymptomatic Collection Time: 03/12/22 9:37 AM Specimen: Nasopharynx; Varies Result Value COVID-19, PCR, Source Swab, Nasopharynx COVID-19, PCR, Result Undetected Labs 02/13/2022 - sodium 140, potassium 4.7, creatinine 1.14, glucose 122, albumin 4.7 ASSESSMENT / PLAN Anesthesia: Patient denies previous anesthesia related complications. 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 No known difficulty with sedation. Only previous anesthetic was tonsillectomy as a child. #3 Myelofibrosis Primary (HCC) #4 Pancytopenia (HCC) Longstanding, close follow-up with Hematology. Has undergone numerous medication trials and clinicalstudies. Most recently, she was on fedratinib, tapered off several weeks ago since it may have been contributing to her lower counts. She has transfusion dependent anemia. Her last transfusion was lastTuesday, 1 unit PRBCs. Presently hemoglobin is stable at 6.5. 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 Symptomatically, she is significantly improved than approximately 1 year ago. Functional capacity is quite limited, but achieves 4 METS. Nuclear stress test 2 years ago was normal, so there is no ischemic component to her cardiomyopathy. Takes torsemide 20 mg daily, which she should continue perioperatively. #8 Chronic Pain Syndrome #9 Abdominal Pain Daily MS Jennings, encouraged to continue as scheduled perioperatively. Reviewed with patient the Checklist for Surgical Patients [id number]. Written and verbal instructions given on medication management before surgery. RECOMMENDATIONS: Patient medically optimized for planned procedure: Yes Further Recommendations: None Caprini Total Score: 7 The patient is at high risk for postoperative DVT or PE. Mechanical AND chemoprophylaxis are recommended at the time of procedure and during postoperative hospitalization, as well as chemoprophylaxis at the time of hospital discharge, unless there are contraindications or risk of bleeding outweighs benefits of chemoprophylaxis. documented in this encounter Plan of Treatment Not on filedocumented as of this encounter Visit Diagnoses Diagnosis Preanesthetic Medical Exam - Primary Splenomegaly Acquired Myelofibrosis Primary (HCC) Pancytopenia (HCC) Hypertension Pulmonary (HCC) Tachycardia Sinus Regurgitation Tricuspid Chronic Pain Syndrome Abdominal Pain documented in this encounter Additional Health Concerns Infection Onset Date Last Indicated Resolved Time COVID19 Pending 03/12/2022 03/12/2022 03/12/2022 3:02 PM CDT documented as of this encounter Care Teams Hat Copyist Relationship Specialty Start Date End Date Elsewhere, Pcp PCP - General 11/04/21 documented as of this encounter
--- OUTSIDE RECORDS SUMMARY | 2022-05-02 12:03 | XMS_ITS | Encounter Summary ---
:1970 Author Organization [facility] Address [address] [place] [address] Care Team Providers Name Role Phone Elsewhere, Pcp Primary Care Provider Unavailable Encounter Details Date Type Department Care Team Description 03/04/2022 Documentation Division of H[place]ology [place]. 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 Confirmed plans for splenectomy on 03/13. She is off fedratinib. Hematology consult service to follow perioperatively, to determine need for hydrea, and to monitor anticoagulation. documented in 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 Care Teams Motion Study Engineer Relationship Specialty Start Date End Date Elsewhere, Pcp PCP - General 11/04/21 documented as of this encounter
--- OUTSIDE RECORDS SUMMARY | 2022-05-02 12:04 | XMS_ITS | Encounter Summary ---
:1970 Author Organization [facility] Address [address] [place] [address] Care Team Providers Name Role Phone Elsewhere, Pcp Primary Care Provider Unavailable Reason for Visit Reason Comments Med Refill Encounter Details Date Type Department Care Team Description 11/16/2021 Refill Division of Hematology in [facility] , Med Refill [place], [place] M.B.B.S. 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 Thank you- Amalia Hematology MAA documented in 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 Care Teams Bottle Machine Operator Relationship Specialty Start Date End Date Elsewhere, Pcp PCP - General 11/04/21 documented as of this encounter
--- OUTSIDE RECORDS SUMMARY | 2022-05-02 12:04 | XMS_ITS | Encounter Summary ---
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 documented as of this encounter Plan of Treatment Pending Results Name Type Priority Associated Diagnoses Date/Ti me Prepare Red Blood Blood Bank Routine Pancytopenia ( HCC) 10/24/2021 9:38 AM Cells, 1 Units Myelofibrosis Primary CDT (HCC) documented as of this encounter Procedures Procedure Name Priority Date/Time Associated Diagnosis Comme nts PREPARE RED BLOOD Routine 10/24/2021 9:38 AM Pancytopeni a (HCC) CELLS CDT Myelofibrosis Primary (HCC) documented in this encounter Visit Diagnoses Diagnosis Pancytopenia (HCC) - Primary Myelofibrosis Primary (HCC) documented in this encounter Additional Health Concerns Infection Onset Date Last Indicated Resolved Time COVID19 Pending 10/24/2021 11/05/2021 11/05/2021 11:54 PM CDT documented as of this encounter Care Teams Seconds Handler Relationship Specialty Start Date End Date None Reported, Pcp PCP - General Family Medicine 02/16/21 documented as of this encounter
--- OUTSIDE RECORDS SUMMARY | 2022-05-02 12:04 | XMS_ITS | Encounter Summary ---
:1970 Author Organization [facility] Address [address] [place] [address] Care Team Providers Name Role Phone Elsewhere, Pcp Primary Care Provider Unavailable Reason for Referral Outpatient (Routine) - Authorized Specialty Diagnoses / Procedures Referred By Contact Refer red To Contact Cardiovascular Disease Charity Tijerina [facility] M.B.B.S. [address] [place] [phone] Referral ID Status Reason Start Date Expiration Date Visits V isits Requested Authorized [id number] Authorized 11/13/2021 11/13/2022 1 1 Outpatient (Routine) - Authorized Specialty Diagnoses / Procedures Referred By Contact Refer red To Contact Diagnoses Hypertension Pulmonary Primary (HCC) Charity Tijerina M.B.B.S. [facility] Procedures Echo Transthoracic (TTE) [address] [place] [phone] Referral ID Status Reason Start Date Expiration Date Visits V isits Requested Authorized [id number] Authorized 11/13/2021 11/13/2022 1 1 Outpatient (Routine) - Authorized Specialty Diagnoses / Procedures Referred By Contact Refer red To Contact Diagnoses Hypertension Pulmonary Primary (HCC) Charity Tijerina M.B.B.S. [facility] Procedures Six Minute Walk [address] [place] [phone] Referral ID Status Reason Start Date Expiration Date Visits V isits Requested Authorized [id number] Authorized 11/13/2021 11/13/2022 1 1 Reason for Visit Outpatient (Routine) - Closed Specialty Diagnoses / Procedures Referred By Contact Refer red To Contact [facility] [address] [place] [address] Referral ID Status Reason Start Date Expiration Date Visits Requ ested Visits Authorized [id number] Closed 10/24/2021 10/24/2022 1 1 Encounter Details Date Type Department Care Team Description 11/13/2021 Virtual Visit Department of Charity Tijerina, Hypertension Pulmonary Primary (HCC) (Primary Dx); Cardiovascular Medicine M.B.B.S. 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 HISTORY OF PRESENT ILLNESS Ms. Dobbs is a 51-year-old female who had a consultation with me for pulmonary hypertension. She has history of myelofibrosis diagnosed in August 2015 and had a hospitalization in May 2021 withright heart failure and was diagnosed with pulmonary hypertension and severe secondary TR at the time. She is quite the limited functionally and is only able to walk a quarter to half a block without stopping. Her symptoms including dyspnea did improve with switching the diuretic to torsemide but she was still class II-III when she saw me in clinic in October. She underwent right heart catheterization with Dr. Hliton Singer with the following results. Investigation Right heart catheterization showed normal filling pressures at rest. RA pressure 4-8 mmHg, pulmonarycapillary wedge pressure 4-12 mmHg. Mean PA pressure was mildly elevated to 34 mmHg with PVR 3.2 GARIBAY,and cardiac index was preserved at 3.3 L/minute/m2 in setting of marked anemia. The transhepatic gradient was normal at 2 mmHg with mild systemic desaturation on pulse oximetry of 93%. There was mild to moderate TR at rest. The TR was found to be mild to moderate on recent right heart catheterization,and this could be because of inability to scan all the imaging windows when patient is supine or perhaps actual decrease in TR with diuresis. ASSESSMENT / PLAN #1 Pulmonary hypertension, precapillary, suspect group 1 versus group 5 #2 Myelofibrosis #3 Marked anemia due to number 2 #4 Exertional dyspnea, NYHA functional class of III #5 Chronic RV failure #6 Tricuspid regurgitation Ms. Dobbs is a 51-year-old female with myelofibrosis and pulmonary hypertension and chronic RV failure who had consultation with me and had phone visit today to follow up on right heart catheterization results. Right heart catheterization shows mild precapillary pulmonary hypertension with PVR 3.2, GARIBAY normal pulmonary capillary wedge pressure and preserved cardiac output in setting of severe anemia.I am quite pleased that her pulmonary hypertension is not severe and cardiac index is preserved, although cardiac index may be slightly less than what was noted today since the hemoglobin is quite reduced at 7.6 and it may cause high output state. At this time with these hemodynamic results I would sta rt her on sildenafil 20 mg t.i.d. I explained the expected response and side effects. I will follow up with her in 6 months with repeat echocardiogram, labs, ECG, and 6-minute walk test. If she is stable on 6-month followup, the duration of followup can be increased to every year. The repeat echocardiogram on followup in 6 months will help us evaluate the TR, and I am pleased that it is reduced in severity to moderate or lower severity on TTE performed with the right heart catheterization, with normal right atrial pressure and no significant V-waves noted on the hemodynamic tracing. All questions answered, patient agrees to the plan. I have determined Jennifer Dobbs is eligible for CV Care Coordination. A nurse will discuss details of care coordination with the patient, including cost sharing and documenting patient consent. Evy Arellano. CT CT Job ID: [id number] documented in this encounter Plan of Treatment Scheduled Orders Name Type Priority Associated Diagnoses Order S chedule Six Minute Walk Cardiac Services Routine Hypertension Expected : Pulmonary Primary 05/16/2022 (HCC) (Approximate), Expires: 02/13/2023 NT-Pro B-Type Lab Routine Hypertension Expected: Natriuretic Peptide Pulmonary Primary 09/2022 (BNP) (HCC) (Approximate), Expires: 02/13/2023 Basic Metabolic Panel Lab Routine Hypertension Expect ed: Pulmonary Primary 11/13/2022 (HCC) (Approximate), Expires: 02/13/2023 CBC with Differential, Lab Routine Hypertension Expec latonya: Blood Pulmonary Primary 11/13/2022 (HCC) (Approximate), Expires: 02/13/2023 Echo Transthoracic Echocardiography Routine Hypertension Expec latonya: (TTE) Pulmonary Primary 05/16/2022 (HCC) (Approximate), Expires: 02/13/2023 Scheduled Referrals Name Type Priority Associated Order Schedule Diagnoses Cardiovascular Disease Outpatient Referral Routine Expected: office visit (clinic) 2022 (Approximate), Expires: 02/13/2023 documented as of this encounter Visit Diagnoses Diagnosis Hypertension Pulmonary Primary (HCC) - P rimary Regurgitation Tricuspid Failure Heart Right (HCC) documented in this encounter Care Teams Junior Engineer Relationship Specialty Start Date End Date Elsewhere, Pcp PCP - General 11/04/21 documented as of this encounter
--- OUTSIDE RECORDS SUMMARY | 2022-05-02 12:04 | XMS_ITS | Encounter Summary ---
:1970 Author Organization [facility] Address [address] [place] [address] Care Team Providers Name Role Phone Elsewhere, Pcp Primary Care Provider Unavailable Encounter Details Date Type Department Care Team Description 11/07/2021 Hospital Encounter Division of [place], Hypertens ion Pulmonary (HCC); Cardiovascular Diseases [facility] in [facility] M.B.B.S. 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 encounter Last Filed Vital Signs Vital Sign Reading Time Taken Comments Blood Pressure 119/78 11/07/2021 4:09 PM CDT Pulse 71 11/07/2021 4:09 PM CDT Temperature 37 ??C (98.6 ??F) 11/07/2021 12:30 PM CDT Respiratory Rate - - Oxygen Saturation 91% 11/07/2021 4:09 PM CDT Inhaled Oxygen Concentration - - Weight 93.7 kg (206 lb 9.1 oz) 11/07/2021 12:30 PM CDT Height 171.2 cm (5' 7.4) 11/07/2021 12:30 PM CDT Body Mass Index 31.97 11/07/2021 12:30 PM CDT documented in this encounter Discharge Instructions AttachmentsThe following attachments cannot be sent through Care Everywhere.Care Following Coronary Angiogram/ Angioplasty/Stent Placement???Radial (Wrist) (Filipino)documented in this encounter Medications at Time of Discharge Medication Sig Dispensed Refills Start Date End Date allopurinoL (ZYLOPRIM) Take one tab by 90 tablet 3 03/14/20 21 300 mg tablet mouth daily. calcium acetate,phosphat TAKE 2 CAPSULES BY 540 capsule 0 bind, (PHOSLO) 667 mg MOUTH THREE TIMES (169 mg calcium) capsule DAILY cyanocobalamin (VITAMIN Take 100 mcg by 0 B12) 100 mcg tablet mouth once a week. Mondays folic acid 1 mg tablet Take by mouth 0 daily. morphine (MS CONTIN) 60 Take 1 tablet by 0 2018 mg ER tablet mouth 2 (two) times a day. sodium-potassium Take 1 tablet by 0 bicarbonate mouth daily as (VASYL-SELTZER GOLD) needed (upset 344-1,050-1,000 mg stomach). tablet, effervescent torsemide (DEMADEX) 20 Take 1 tablet (20 30 tablet 1 2020 mg tablet mg total) by mouth daily. LORazepam (ATIVAN) 0.5 Take 1-2 mg by 0 mg tablet mouth at bedtime as needed for anxiety or sleep. sennosides (SENOKOT) 8.6 Take 1 tablet by 0 03/07 mg tablet mouth at bedtime as needed for constipation. fedratinib (INREBIC) 100 Take 2-3 capsules 200 capsule 2 08/202111/16/2021 mg capsule (200-300 mg total) by mouth daily. oxyCODONE (OXY-IR) 5 mg Take 2 capsules by 0 02/1203/18/2022 immediate release mouth every 4 capsule (four) hours as needed. fedratinib (Inrebic) 100 Take 4 capsules 240 capsule 2 11/1903/11/2022 mg capsule (400 mg total) by mouth daily. morphine (MSIR) 15 mg Take 15 mg by mouth 0 03/11/2022 tablet at bedtime. Research IRB [id number] Take by mouth. Pt 0 03/11/2022 alisertib ([id number]) 10 is unsure of what mg DR tablet this medication is- not sure if taking or not ruxolitinib (JAKAFI) 10 Take 10 mg by mouth 0 03/11/2022 mg tablet 2 (two) times a day. Take at about the same time each day. Take with or without food. torsemide (DEMADEX) 20 Take 1 tablet (20 20 tablet 1 202003/11/2022 mg tablet mg total) by mouth 2 (two) times a day. documented as of this encounter Nursing Notes Linn Silver R.N. - 11/07/2021 5:21 PM CDT The patient???s IJ site / dressing is dry and intact. Vital signs are stable. No complaints of chestpain, no difficulty swallowing. No hematoma or bleeding present. No change in neuro status from prior to procedure. Ambulated without difficulty. Dismissal instructions were reviewed in detail as per [id number], with patient and family, they verbalized understanding. Follow up appointment is arranged. Patient was dismissed when discharge criteria was met, accompanied by family. All questions answered. documented in this encounter Plan of Treatment Not on filedocumented as of this encounter Procedures Procedure Name Priority Date/Time Associated Diagnosis Comme nts ECHO - INTRAPROCEDURAL Routine 11/07/2021 4:20 Regurgitation IMAGES ONLY PM CDT Tricuspid CARDIAC CATHETERIZATION Routine 11/07/2021 4:11 Hypertension R esults for this PM CDT Pulmonary (HCC) procedure ar e in the results section. CARDIAC CATHETERIZATION Routine 11/07/2021 4:11 Hypertension R esults for this PM CDT Pulmonary (HCC) procedure ar e in the results section. CBC WITHOUT STAT 11/07/2021 1:02 Results for this DIFFERENTIAL, B PM CDT procedure ar e in the results section. documented in this encounter Results Echo - Intraprocedural Images Only (11/07/2021 4:20 PM CDT) Specimen (Source) Anatomical Location Collection Method / Collectio n Time Received Time / Laterality Volume Narrative This result has an attachment that is no t available. Isidro Singer M.D. CV ECHO PROCEDURES RIGHT HEART CATHETERIZATION, NITRIC OXIDE STUDY (11/07/2021 4:11 PM CDT) Anatomical Region Laterality Modality X-Ray Angiography Specimen (Source) Anatomical Collection Method Collection Time Re ceived Time Location / / Volume Laterality 11/07/2021 3:27 PM CDT Narrative 11/08/2021 11:48 AM CDT For the complete report, see the Order-L evel Documents. PROCEDURE TYPES 1. ??HEART CATHETERIZATION - RIGHT 2. ??NITRIC OXIDE STUDY FINAL DIAGNOSIS 1. ??Mild pre-capillary pulmonary hypert ension with normal biventricular filling pressures 2. ??Normal cardiac index in the setting of marked anemia 3. ??Improvement in PA pressures and PVR with NO 4. ??No evidence of portal hypertension PRE-PROCEDURE DIAGNOSIS 1. ??Hypertension Pulmonary (HCC) HEMODYNAMICS SUMMARY BASELINE:Biventricular filling pressures varied but were still within the normal range (RA 4-8 mmHg; PAWP 4-12). ??Mean PA pressure was mildly elevated at 34 mmHg, yielding a mild-moderately increased PVR (3.2 GARIBAY). ??Cardiac index was normal at 3.3 l/min/m2.Transhepatic gradient was nay l at 2 mmHg (HVWP 12, HV 10).There was mild systemic desaturation based on pulse oximetry (93%).Concomitant TTE showed mild-moderate tricuspid regurgitation at most.NO 80 PPM:Mean PA pressure decreased to 23 mmHg while PAWP was 7 mm Hg and right atrial pressure 4 mmHg. ??Cardiac index decreased to 2.8 l/min/m2 a calculated PVR of 2.7 GARIBAY.SUMMARY:Findings are consistent with 1) mild pre capillary pulmonary hypertension with normal biventricular filling pressures; 2) norm al cardiac index in the setting of marked anemia; 3) no evidence of portal hypertension; 4) improvement in PA pressures and PVR with NO. RADIATION DOSE DATA Procedure cumulative skin dose (mGy): 43 .66 Procedure cumulative dose area product ( Gy-cm2): 4.34 Fluoro Time (Min): 7.37 For the complete report, see the Order-L evel Documents. Charity Ardon CV CARDIAC CATH PROCEDURES (ABNORMAL) CBC without Differential (11/07/2021 1:02 PM CDT) [facility] Method Time Signature Hemoglobin 7.6 (L) 11.6 - 11/07/2021 STMA 15.0 g/dL 1:19 PM CDT Hematocrit 24.8 (L) 35.5 - 11/07/2021 STMA 44.9 % 1:19 PM CDT Erythrocytes 2.78 (L) 3.92 - 11/07/2021 STMA 5.13 1:19 PM CDT x10(12)/L MCV 89.2 78.2 - 11/07/2021 STMA 97.9 fL 1:19 PM CDT RBC Distrib Width 26.6 (H) 12.2 - 11/07/2021 STMA 16.1 % 1:19 PM CDT Platelet Count 88 (L) 157 - 371 11/07/2021 STMA x10(9)/L 1:19 PM CDT Leukocytes 4.4 3.4 - 9.6 11/07/2021 STMA x10(9)/L 1:19 PM CDT Specimen Anatomical Collection Method Collection Time Receive d Time (Source) Location / / Volume Laterality Blood (Blood, 11/07/2021 1:02 PM 11/08/19 22 1:13 Venous) CDT PM CDT Isidro Singer M.D. LAB BLOOD ADD-ON Performing Organization Address City/State/ZIP Code Phon e Number [facility] - [address] [place], [place] [address] [place] [address] [facility] [address] documented in this encounter Visit Diagnoses Diagnosis Hypertension Pulmonary (HCC) - Primary Hypertension Pulmonary (HCC) Regurgitation Tricuspid Hypertension Pulmonary (HCC) documented in this encounter Admitting Diagnoses Diagnosis Hypertension Pulmonary (HCC) documented in this encounter Administered Medications Inactive Administered Medications - up to 3 most recent administrations Medication Order MAR Action Action Date Dose Rate Site sodium chloride 0.9 % injection 10 mL 10 mL, intravenous, As needed, line care, Starting on Fri11/07/21 at 1231, Preprocedure (CV), Peripheral Intravenous Catheter and Rapid Infusion Catheter, prior to blood sampling, post blood transfusion or pos t blood sampling sodium chloride 0.9 % injection 3 mL 3 mL, intravenous, As needed, line care, Starting on W ed 11/07/21 at 1231, Preprocedure (CV), Prior to and followin g infusion and between multiple consecutive infusions: sodium chloride 0.9 % injection sodium chloride 0.9 % injection 3 mL 3 mL, intravenous, Every 12 hours scheduled, First dos e on Fri11/07/21 at 2100, Preprocedure (CV), Peripheral Intravenous Catheter and Rapid Infusion Catheter, when no infusion to maintain patency documented in this encounter Active and Recently Administered Medications Times are shown in CDT. Scheduled Medication Order 11/05/2021 11/06/2021 11/07/2021 sodium chloride 0.9 % injection 3 mL 3 mL, intravenous, Every 12 hours schedu led, First dose on 11/07/21 at 2100, Preprocedure (CV), Peripheral Intravenous Catheter and Rapid Infusion Catheter, when no infusion to maintain patency PRN Medication Order 11/05/2021 11/06/2021 11/07/2021 fentaNYL injection (SUBLIMAZE) (CANCELED) 1528 (Given - Provider: Dalila Romano R.N.) As needed, Starting on Fri11/07/21 at 1528, Intraprocedure (CV) lidocaine 10 mg/mL (1 %) injection (XYLOCAINE) (CANCELED) 1530 (Given - Provider: Isidro Singer M.D.) As needed, Starting on Fri11/07/21 at 1530, Intraprocedure (CV) midazolam (PF) injection (VERSED) (CANCELED) 1528 (Given - Provider: Dalila Romano R.N.) As needed, Starting on Fri11/07/21 at 1528, Intraprocedure (CV) ondansetron (PF) injection (ZOFRAN) (CANCELED) 1546 (Given - Provider: Dalila Romano R.N.) As needed, Starting on Fri11/07/21 at 1546, Intraprocedure (CV) sodium chloride 0.9 % injection 10 mL 10 mL, intravenous, As needed, line care , Starting on Fri11/07/21 at 1231, Preprocedure (CV), Peripheral Intravenous Catheter and Rapid Infusion Catheter, prior to blood sampling, post blood transfusion or post blood sampling sodium chloride 0.9 % injection 3 mL 3 mL, intravenous, As needed, line care, Starting on Fri11/07/21 at 1231, Preprocedure (CV), Prior to and following infusion and between multiple consecutive infusions: sodium chloride 0.9 % injection documented in this encounter Care Teams Wheel Grinder Relationship Specialty Start Date End Date Elsewhere, Pcp PCP - General 11/04/21 documented as of this encounter
--- OUTSIDE RECORDS SUMMARY | 2022-05-02 12:04 | XMS_ITS | Encounter Summary ---
:1970 Author Organization [facility] Address [address] [place] [address] Care Team Providers Name Role Phone Elsewhere, Pcp Primary Care Provider Unavailable Encounter Details Date Type Department Care Team Description 02/22/2022 Documentation Division of Hematology in Isidro Zamarripa, [place], [place] Murphy, B.Ch. [address] 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 - 02/22/2022 7:30 AM CDT We reviewed the donor search. The siblings who have consented and agreed to HLA typing are not HLA identical. There are no fully matched unrelated donors. There are some multiply mismatched (DRB1/DP permissive) unrelated donors potentially available but at the present time the risk for rejection seemshigh, will reassess after splenectomy. documented in 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 Care Teams Wildland Fire Operations Specialist Relationship Specialty Start Date End Date Elsewhere, Pcp PCP - General 11/04/21 documented as of this encounter
--- OUTSIDE RECORDS SUMMARY | 2022-05-02 12:04 | XMS_ITS | Encounter Summary ---
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
--- OUTSIDE RECORDS SUMMARY | 2022-05-02 12:04 | XMS_ITS | Encounter Summary ---
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
--- OUTSIDE RECORDS SUMMARY | 2022-05-02 12:04 | XMS_ITS | Encounter Summary ---
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 - 01/28/2022 3:14 PM CDT I spoke with her , and the plan is to give her a unit of RBC's tomorrow and then again on Friday to try and keep her hgb from dropping below 6.0 next week. He said if you have any concerns with her needing two units in a week to let him know. Cintia Carr Telephone Encounter - Mary Ann Shaver R.N. - 01/28/2022 1:30 PM CDT She has an appt with you on 02/14. MF on Inrebic. Transfused locally at [facility]. ThanksCintia Telephone Encounter - Jocelyne Bales - 01/28/2022 1:06 PM CDT Outside labs collected on 01/28/2022 have been received. The fax has been scanned into the patient record via [employer], and the CBC results are as noted below. Hemoglobin: 5.8 Hematocrit: 19.2 WBC: 3.37 ANC: 2.10 Platelets: 65 Please note: Are there additional labs reported on the outside report? Yes documented in 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 Care Teams Sewing Machine Operator Zipper Relationship Specialty Start Date End Date Elsewhere, Pcp PCP - General 11/04/21 documented as of this encounter
--- OUTSIDE RECORDS SUMMARY | 2022-05-02 12:04 | XMS_ITS | Encounter Summary ---
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 - 02/22/2022 12:45 PM CDT I called and spoke with patient today. She received 1 unit pRBC today, rechecking labs Friday. She is currently on Fedratinib 100 mg daily. She states she is about done with it. HPBS appt on 02/26. Telephone Encounter - Jocelyne Bales - 02/22/2022 12:21 PM CDT Outside labs collected on 02/21/2022 have been received. The fax has been scanned into the patient record via [employer], and the CBC results are as noted below. Hemoglobin: 6.7 Hematocrit: 21.4 WBC: 2.37 ANC: 1.40 Platelets: 59 Please note: Are there additional labs reported on the outside report? Yes documented in 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 Care Teams Plc Technician Relationship Specialty Start Date End Date Elsewhere, Pcp PCP - General 11/04/21 documented as of this encounter
--- OUTSIDE RECORDS SUMMARY | 2022-05-02 12:04 | XMS_ITS | Encounter Summary ---
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
--- OUTSIDE RECORDS SUMMARY | 2022-05-02 12:04 | XMS_ITS | Encounter Summary ---
:1970 Author Organization [facility] Address [address] [place] [address] Care Team Providers Name Role Phone Elsewhere, Pcp Primary Care Provider Unavailable Encounter Details Date Type Department Care Team Description 12/25/2021 Clinical Communication Division of Hematology Janusz Govea, in [facility] milton [facility]ringtonB[facility] 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 - 12/25/2021 3:25 PM CDT I called Gian back and let him know Dr. Govea said it was fine for the patient to take Sildenafil.He had no further questions. Telephone Encounter - Mary Ann Shaver R.N. - 12/25/2021 2:26 PM CDT See message. Cintia Carr Telephone Encounter - Margy Proctor - 12/25/2021 1:16 PM CDT Name of caller: Gian Dobbs (). Reason for call: Gian is calling to ensure it's okay for his to take a new dose of Sildenafil.He states that Dr. Govea likes to approve before she starts taking new meds. Call back number is [phone]. Is it okay to leave a voicemail? Yes. Is it okay to send a patient online message with your reply? No. Thank you, [facility] K[facility]RIE documented in 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 Care Teams Senior Web Engineer Relationship Specialty Start Date End Date Elsewhere, Pcp PCP - General 11/04/21 documented as of this encounter
--- OUTSIDE RECORDS SUMMARY | 2022-05-02 12:04 | XMS_ITS | Encounter Summary ---
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 documented as of this encounter Last Filed Vital Signs Vital Sign Reading Time Taken Comments Blood Pressure 110/59 11/07/2021 12:30 PM CDT Pulse 76 11/07/2021 12:45 PM CDT Temperature 37 ??C (98.6 ??F) 11/07/2021 12:30 PM CDT Respiratory Rate - - Oxygen Saturation 98% 11/07/2021 12:45 PM CDT Inhaled Oxygen Concentration - - Weight 93.7 kg (206 lb 9.1 oz) 11/07/2021 12:30 PM CDT Height 171.2 cm (5' 7.4) 11/07/2021 12:30 PM CDT Body Mass Index 31.97 11/07/2021 12:30 PM CDT documented in this encounter Discharge Instructions AttachmentsThe following attachments cannot be sent through Care Everywhere.Care Following Coronary Angiogram/ Angioplasty/Stent Placement???Radial (Wrist) (Azeri)documented in this encounter Medications at Time of [...] 0 03/11/2022 tablet at bedtime. Research IRB [id number] Take by mouth. Pt 0 03/11/2022 alisertib ([id number]) 10 is unsure of what mg DR [...] instructions were reviewed in detail as per ST4123-93, with patient and family, they verbalized understanding. [...] For the complete report, see the [employer] Documents. PROCEDURE TYPES 1. ??HEART CATHETERIZATION - [...] CBC without Differential (11/07/2021 1:02 PM CDT) [facility] Method Time Signature Hemoglobin 7.6 (L) [...] Laterality Blood (Blood, 11/07/2021 1:02 PM 11/08/19 1:13 Venous) CDT PM CDT Isidro Singer M.D. LAB BLOOD ADD-ON Performing Organization Address City/State/ZIP Code Phon e Number [facility] - [address] [place], [place] [address] [facility] [place] [address] [facility] [address] documented in this encounter Visit Diagnoses Diagnosis Hypertension Pulmonary (HCC) - Primary Hypertension Pulmonary (HCC) Regurgitation Tricuspid Hypertension Pulmonary (HCC) documented in this encounter Admitting Diagnoses Diagnosis Hypertension Pulmonary (HCC) documented in this encounter Administered Medications Inactive Administered Medications - up to 3 most recent administrations Medication Order MAR Action Action Date Dose Rate Site fentaNYL injection (SUBLIMAZE) Given 11/07/2021 3:28 PM CDT 25 mcg As needed, Starting on Fri11/07/21 at 1528, Intraprocedure (CV) lidocaine 10 mg/mL (1 %) injection Given 11/07/2021 3:30 PM CDT 5 mL Right Neck (XYLOCAINE) As needed, Starting on Fri11/07/21 at 1530, Intraprocedure (CV) midazolam (PF) injection (VERSED) Given 11/07/2021 3:28 PM CDT 0.5 mg As needed, Starting on Fri11/07/21 at 1528, Intraprocedure (CV) ondansetron (PF) injection (ZOFRAN) Given 11/07/2021 3:46 PM CDT 4 mg As needed, Starting on Fri11/07/21 at 1546, [...] 12 hours schedu led, First dose on Fri11/07/21 at 2100, Preprocedure (CV), Peripheral [...] injection documented in this encounter Care Teams Taxation Consultant Relationship Specialty Start Date End Date Elsewhere, Pcp PCP - General 11/04/21 documented as of this encounter
--- OUTSIDE RECORDS SUMMARY | 2022-05-02 12:04 | XMS_ITS | Encounter Summary ---
:1970 Author Organization [facility] Address [address] [place] [address] Care Team Providers Name Role Phone Elsewhere, Pcp Primary Care Provider Unavailable Reason for Visit Reason Comments Medical marijuana Encounter Details Date Type Department Care Team Description 10/25/2021 Clinical Communication Department of [facility], [facility] Cardiovascular [facility], Medicine in [place] [address] [address] [place] [address] [place] [phone] Social History Tobacco Use Types Packs/Day Years [...] at Date Recorded 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 - 11/16/2021 4:16 PM CDT The pharmacist for [facility] is wondering if with her cardiac condition and the fatigue and drowsiness, if it would be ok to prescribe the medical marijuanna. They are looking for clearance and would like a call. Thanks! Telephone Encounter - Belen Mata - 11/16/2021 2:22 PM CDT SUBJECTIVE CHIEF COMPLAINT / REASON FOR CALL Medical cannabis Name of caller/relationship to the patient: Libby Swipely Patient expects communication via portal: No Phone number: [phone] Request topic and what needs to be addressed? Other ?? Goal or summary: Is Mrs. Crane heart condition stable at baseline prior to prescribing medicalcannabis? Additional comments: See previous communications from October 25 and regarding medical marijuana. 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 I read her Dr. Tijerina's response that she will not refill this medication as it is not related to pulmonary hypertension. Libby was confused as she thought Dr. Tijerina was the patient'scardiologist, which I explained to her she was. Anyway, what Libby is requesting is with Mrs. Dobbs's fatigue and drowsiness, is her heart condition stable at baseline before prescribing medical cannabis for her? She would like a phone call back at the number above in this regard. Telephone Encounter - Jordyn Rosales R.N. - 10/26/2021 9:30 AM CDT SUBJECTIVE CHIEF COMPLAINT / REASON FOR CALL Medical marijuana ASSESSMENT ? Mrs. Dobbs was updated that Dr. Tijerina does not feel like she is the provider to update the medical marijuana order as it is not for the pulmonary hypertension. PLAN Mrs. Dobbs indicates she will follow up further with the provider who is ordering it for her. She indicates it was not clear why Swipely was asking for the input of Dr. Tijerina since she was not the order prescriber. In any event, Mrs. Dobbs will follow up with the ordering provider and [facility]. Disposition/Recommendation: self-care is appropriate at this time, patient encouraged to call back with questions. Information/Education: patient/caller able to teach back. Caller agreeable to plan of care: yes. The following references were used: nursing clinical judgement. Telephone Encounter - Lisa Choudhury - 10/25/2021 1:05 PM CDT SUBJECTIVE CHIEF COMPLAINT / REASON FOR CALL Medical marijuana Name of caller/relationship to the patient: [facility] Patient expects communication via portal: No Phone number: [phone] Request topic and what needs to be addressed? Other ?? Goal or summary: Patient wants to start taking medical marijuana. Pharmacy wants to get approval for them to provide this to the patient. ? Additional comments: Patient saw Dr. Tijerina yesterday. documented in 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 Additional Health Concerns Infection Onset Date Last Indicated Resolved Time COVID19 Pending 10/24/2021 11/05/2021 11/05/2021 11:54 PM CDT documented as of this encounter Care Teams Manager Background Relationship Specialty Start Date End Date Elsewhere, Pcp PCP - General 11/04/21 documented as of this encounter
--- OUTSIDE RECORDS SUMMARY | 2022-05-02 12:04 | XMS_ITS | Encounter Summary ---
:1970 Author Organization [facility] Address [address] [place] [address] Care Team Providers Name Role Phone Elsewhere, Pcp Primary Care Provider Unavailable Encounter Details Date Type Department Care Team Description 11/05/2021 Hospital Encounter Department of [place], [facility], [facility] er For Preprocedural Laboratory Examination (COVID-19); Laboratory Medicine [facility] 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 calcium acetate,phosphat TAKE 2 CAPSULES BY 540 capsule 0 02 /07/2021 bind, (PHOSLO) 667 mg MOUTH THREE TIMES (169 mg calcium) capsule DAILY cyanocobalamin (VITAMIN Take 100 mcg by 0 B12) 100 mcg tablet mouth once a week. Mondays folic acid 1 mg tablet Take by mouth 0 daily. LORazepam (ATIVAN) 0.5 Take 1-2 mg by 0 mg tablet mouth at bedtime as needed for anxiety or sleep. morphine (MS CONTIN) 60 Take 1 tablet [...] mg tablet mg total) by mouth daily. fedratinib (INREBIC) 100 Take 2-3 capsules 200 capsule 2 08/202111/16/2021 mg capsule (200-300 mg total) by mouth daily. fedratinib (Inrebic) 100 Take 4 capsules 240 capsule 2 11/1903/11/2022 mg capsule (400 mg total) by mouth daily. morphine (MSIR) 15 mg Take 15 mg by mouth 0 03/11/2022 tablet at bedtime. oxyCODONE (OXY-IR) 5 mg Take 2 capsules by 0 02/1203/18/2022 immediate release mouth every 4 capsule (four) hours as needed. Research IRB [id number] Take by mouth. Pt 0 03/11/2022 alisertib ([id number]) 10 is unsure of what mg DR [...] a day. documented as of this encounter Plan of Treatment Not on filedocumented as of this encounter Procedures Procedure Name Priority Date/Time Associated Diagnosis Comme nts SARS CORONAVIRUS-2 Routine 11/05/2021 10:38 Encounter For Resu lts for this RNA, V AM CDT Preprocedural procedure are in Laboratory Examination the r esults (COVID-19) section. Contact With And (Suspected) Exposure To COVID-19 documented in this encounter Results SARS Coronavirus-2 RNA, V Asymptomatic (11/05/2021 10:38 AM CDT) [facility] Method Time Signature SARS-CoV-2 Swab, 11/05/2021 MKTO Specimen Nasopharynx 11:53 PM Source CDT SARS CoV-2 Undetected Undetected 11/05/2021 MKTO RNA, TMA 11:53 PM CDT Comment: SARS-CoV-2 RNA absent. This result does not rule out COVID-19 in the patient, as the sensitivity of the test depends o n the timing of the specimen collection and the quality of the specim en. Result should be correlated with patient's history and clinical presentat ion. ----ADDITIONAL INFORMATION---- This molecular amplification test was pe rformed using the Aptima SARS-CoV-2 assay ([employer] on the [place] tem under emergency use authorization (EUA) by the U.S. Food and Drug Administ ration. Fact sheets for this EUA assay can be fo und at the following links: For Healthcare Providers: https://www.fd a.gov/media/803866/download For Patients: https://www.fda.gov/media/ 358869/download Specimen Anatomical Collection Method Collection Time Receive d Time (Source) Location / / Volume Laterality Varies 11/05/2021 10:38 11/05/2021 4:09 (Nasopharynx) AM CDT PM CDT [facility] LAB MICROBIOLOGY - GENERAL O RDERABLES Performing Organization Address City/State/ZIP Code Phon e Number [facility]- [address] [place] [id number] [place] [address] System [address] documented in this encounter Visit Diagnoses Diagnosis Encounter For Preprocedural Laboratory E xamination (COVID-19) Contact With And (Suspected) Exposure To COVID-19 documented in this encounter Additional Health Concerns Infection Onset Date Last Indicated Resolved Time COVID19 Pending 10/24/2021 11/05/2021 11/05/2021 11:54 PM CDT documented as of this encounter Care Teams Project Management Director Relationship Specialty Start Date End Date Elsewhere, Pcp PCP - General 11/04/21 documented as of this encounter
--- OUTSIDE RECORDS SUMMARY | 2022-05-02 12:04 | XMS_ITS | Encounter Summary ---
:1970 Author Organization [facility] Address [address] [place] [address] Care Team Providers Name Role Phone Elsewhere, Pcp Primary Care Provider Unavailable Reason for Referral Outpatient (Routine) - Closed Specialty Diagnoses / Procedures Referred By Contact Refer red To Contact Radiology Diagnoses Splenomegaly Acquired Hema Rothman M.D. [facility] Procedures IR Arterial Embolization [address] [place] [phone] Referral ID Status Reason Start Date Expiration Date Visits Requ ested Visits Authorized [id number] Closed 02/26/2022 02/26/2023 1 1 utpatient (Routine) - Closed Specialty Diagnoses / Procedures Referred By Contact Refer red To Contact Anesthesiology Diagnoses Splenomegaly Acquired Hema Rothman M.D. [facility] [address] [place] [phone] Referral ID Status Reason Start Date Expiration Date Visits Requ ested Visits Authorized [id number] Closed 02/26/2022 02/26/2023 1 1 Reason for Visit Outpatient (Routine) - Closed Specialty Diagnoses / Procedures Referred By Contact Refer red To Contact General Surgery Diagnoses Myelofibrosis Primary (HCC) [facility] [address] [place] [phone] Referral ID Status Reason Start Date Expiration Date Visits Requ ested Visits Authorized [id number] Closed 02/14/2022 02/14/2023 1 1 Encounter Details Date Type Department Care Team Description 02/26/2022 Comprehensive Visit Division of Hema Rothman Splenom egaly Acquired (Primary Dx); Hepatobiliary and E M.DZahraa Myelofibrosis Primary (HCC); Pancreas Surgery in [address] Pancytopenia (HCC) [place], [place] [address] [address] [place], [place] [phone] (Work) [phone] Social History Tobacco Use Types Packs/Day Years [...] at Date Recorded 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 - 02/26/2022 2:30 PM CDT SURGICAL ONCOLOGY CONSULT NOTE SUBJECTIVE CHIEF COMPLAINT/REASON FOR VISIT Patient is referred by Murphy ForemanBZahraaSZahraa for consultation regarding newly splenomegaly and myelofibrosis HISTORY OF PRESENT ILLNESS Ms. Dobbs is a 51 y.o. 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 She has been on multiple therapies in the past. Despite this, She continues to have significant enlargement of the spleen (now measuring 30 cm), and issymptomatic, with constipation, bloating, early satiety, nausea, and is requiring narcotics for paincontrol. She has been requiring 2 units of red blood cell transfusion every other week. She does have pulmonary hypertension and chronic RV failure. Fortunately, this seems mild as her cardia cindex is preserved and her right atrial pressures were only slightly elevated. Her functional status is quite the limited functionally. She is only able to walk a quarter to half a block without stopping. Her symptoms including dyspnea, which did improve with diuresis but remainssignificant. Her nutritional status is stable. Her albumin is 4.7 and her weight is stable. I reviewed her laboratory studies which are notable for symptomatic severe anemia with Hgb 6.5, thrombocytopenia (platelet count is 50) and and leukopenia (leukocytosis is 2.6) OBJECTIVE PHYSICAL EXAMINATION anxious Obese BMI is 31.15 kg/m2 ECOG status: (2) Ambulatory and capable of self care, unable to carry out work activity, up and about > 50% or waking hours Significantly distended with massive splenomegaly occupying the majority of the abdomen. No previous abdominal incisions ASSESSMENT / PLAN Ms. Dobbs has symptomatic splenomegaly in the setting of myelofibrosis. I explained that splenectomy will durably resolve her symptoms of early satiety, nausea, pain and bloating. In terms of her myelofibrosis our data suggests that 80% of patients have improvement in their anemia and thrombocytopenia.. Complications following splenectomy for Myelofibrosis include perioperative bleeding, infections andthrombosis, including misty-splenic vein thrombosis. In addition, some patients experience postsplenectomy increase in the severity of hepatomegaly, thrombocytosis or leukocytosis and an increase in circulating blast count In terms of post-splenectomy survival. Given her young age, lack of leucocytosis, but need for RBC transfusion she will be in the low risk group with a median survival of 3 years. Thus, I recommend splenectomy. Preoperative embolization and MIS surgical approach is recommended todecrease her risk of perioperative complications. #1 Myelofibrosis Primary (HCC) #2 Splenomegaly Acquired #3 Pancytopenia (HCC) I personally spent over half of a total 40 minutes face to face with the patient in counseling and discussion and/or coordination of care as described above. documented in this encounter Plan of Treatment Scheduled Referrals Name Type Priority Associated Diagnoses Order S chedule Preoperative Outpatient Referral Routine Splenomegaly Expected : Evaluation MARIO Acquired 02/27/2022, consult (clinic) Expires: 02/26/2025 documented as of this encounter Results IR Arterial Embolization (03/13/2022 [...] image was created and stored. A 5 Gabonese Jasiel 1 sheath was placed. The celiac ar carolyne was selected with a Rand B catheter. Arteriogram demonstrating massive splenomegaly and d istortion of the celiac axis due to mass effect. The sheath was advanced into the splenic artery and a 4 Gabonese glide catheter was advanced further into the [...] image was created and stored. A 5 Gabonese Jasiel 1 sheath was placed. The celiac ar carolyne was selected with a Rand B catheter. Arteriogram demonstrating massive splenomegaly and d istortion of the celiac axis due to mass effect. The sheath was advanced into the splenic artery and a 4 Gabonese glide catheter was advanced further into the [...] total splenic artery embol ization. EP Hema Rothman M.D. IMG IR PROCEDURES SARS Coronavirus 2, Molecular Detection, PCR, Varies Asymptomatic (03/12/2022 9:37 AM CDT) [facility] Method Time Signature COVID-19, Swab, 03/12/2022 [...] ----ADDITIONAL INFORMATION---- This RT-PCR test using the Siterra SARS-Co V-2 Assay ( [employer].) performed on the Siterra Two Module System has received Emergency Use Authorization (EUA) by the U.S. Food and Drug Administration, and is modified from the client server developer's instructions with a bridging study. Performance characteristics were verifie d by [facility] in a manner consistent with CLIA requirements. Visit the CDC website: https://www.cdc.g ov/coronavirus/ for the most recent guidelines on [place] virus testing. Fact Sheet for Healthcare Providers: https://www.fda.gov/media/300746/downloa d Fact Sheet for Patients: https://www.fda.gov/media/869663/downloa d Specimen Anatomical Collection Method Collection Time Receive d Time (Source) Location / / Volume Laterality Varies 03/12/2022 9:37 AM (Nasopharynx) CDT 10:32 AM CDT Hema Rothman M.D. LAB MICROBIOLOGY - GENERAL O RDERABLES Performing Organization Address City/State/ZIP Code Phon e Number [facility] - [address] [place], [place] [address] [place] [address] [facility] [address] Type and Screen (with reflex Antibody ID) (03/12/2022 8:55 AM CDT) [facility] IgnitionOne Method Time Signature ABORh A Pos Not 03/12/2022 ETRM applicable 10:07 AM CDT Antibody Negative Negative 03/12/2022 ETRM Screen 10:19 AM CDT Type & Screen 03/15/2022 03/12/2022 ETRM Expiration 23:59 10:07 AM CDT Testing [place] DEFAULT 03/12/2022 ETRM Location 9:34 AM CDT Specimen Anatomical Collection Method Collection Time Receive d Time (Source) Location / / Volume Laterality Blood (Blood, 03/12/2022 8:55 AM 03/12/20 22 9:34 Venous) CDT AM CDT Hema Rothman M.D. LAB BLOOD BANK TEST ORDERABL ES Performing Organization Address City/State/[facility] Code Phon e Number [facility] - [address] [place], [place] [address] [place] [address] [facility] [address] [facility] (ABNORMAL) CBC without Differential (03/12/2022 8:55 AM CDT) [facility] Method Time Signature Hemoglobin 6.5 (L) 11.6 [...] Organization Address City/State/ZIP Code Phon e Number [facility] - [address] [place], [place] [address] [facility] [facility] [place] [address] [facility] [address] documented in this encounter Visit Diagnoses Diagnosis Splenomegaly Acquired - Primary Myelofibrosis Primary (HCC) Pancytopenia (HCC) Splenomegaly Acquired documented in this encounter Care Teams Rigging Up Man Relationship Specialty Start Date End Date Elsewhere, Pcp PCP - General 11/04/21 documented as of this encounter
--- OUTSIDE RECORDS SUMMARY | 2022-05-02 12:04 | XMS_ITS | Encounter Summary ---
:1970 Author Organization [facility] Address [address] [place] [address] Care Team Providers Name Role Phone None Reported, Pcp Primary Care Provider Unavailable Reason for Referral Outpatient (Routine) - Closed Specialty Diagnoses / Procedures Referred By Contact Refer red To Contact Diagnoses Myelofibrosis Primary (HCC) Janusz Govea M.B.B.S. [facility] Procedures US Spleen US Abdomen Limited [address] [place] [phone] Referral ID Status Reason Start Date Expiration Date Visits Requ ested Visits Authorized [id number] Closed 07/23/2021 07/23/2022 1 1 Reason for Visit Outpatient (Routine) - Closed Specialty Diagnoses / Procedures Referred By Contact Refer red To Contact Diagnoses Myelofibrosis Primary (HCC) Janusz Govea M.B.B.S. [facility] Procedures US Spleen US Abdomen Limited [address] [place] [phone] Referral ID Status Reason Start Date Expiration Date Visits Requ ested Visits Authorized [id number] Closed 07/23/2021 07/23/2022 1 1 Encounter Details Date Type Department Care Team Description 10/24/2021 Hospital Encounter Department of Alexandria Govea Primary Radiology, Lexus Boudreaux ([facility]) Brock, in M.AundreaB.S. 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 Research IRB [id number] Take by mouth. Pt 0 03/11/2022 alisertib ([id number]) 10 is unsure of what mg DR [...] Name Priority Date/Time Associated Diagnosis Comme nts US SPLEEN RAD - Routine 10/24/2021 10:17 Myelofibrosis Results f or this (most inpatients AM CDT Primary (HCC) procedure are in and all the results outpatients) section. documented in this encounter Results US Spleen (10/24/2021 10:17 AM CDT) Anatomical Region Laterality Modality Abdomen, Ultrasound RST LOS, Ultrasound ARZ LOS, Ultrasound FLA N/A Ultrasound LOS Specimen (Source) Anatomical Collection Method Collection Time Re ceived Time Location / / Volume Laterality 10/24/2021 10:19 AM CDT Impressions 10/24/2021 10:24 AM CDT Unchanged marked splenomegaly. Narrative 10/24/2021 10:24 AM CDT EXAM: US SPLEEN COMPARISON: Ultrasound scan dated [address] scan dated 02/16/2021. FINDINGS: Spleen: Marked splenomegaly. Spleen jose roberto th: 30.5 cm. ??A1.4 cm well-defined echogenic lesion demonstrates sonographic appearance most compatible with a hemangioma. A 2.4 x 2.8 x 1.9 ill-defined wedge-shaped subcapsular area has not si gnificantly changed since the comparison ultrasound scan and is consistent with infarction. Procedure Note Dick Jung M.D. - 10/24/2021Forma tting of this note might be different from the original. EXAM: US SPLEEN COMPARISON: Ultrasound scan dated [address] scan dated 02/16/2021. FINDINGS: Spleen: Marked splenomegaly. Spleen jose roberto th: 30.5 cm. A1.4 cm well-defined echogenic lesion demonstrates sonographic appearance most compatible with a hemangioma. A 2.4 x 2.8 x 1.9 ill-defined wedge-shaped subcapsular area has not si gnificantly changed since the comparison ultrasound scan and is consistent with infarction. IMPRESSION: Unchanged marked splenomegaly. Janusz CAMPOS US PROCEDURES documented in this encounter Visit Diagnoses Diagnosis Myelofibrosis Primary (HCC) documented in this encounter Additional Health Concerns Infection Onset Date Last Indicated Resolved Time COVID19 Pending 10/24/2021 11/05/2021 11/05/2021 11:54 PM CDT documented as of this encounter Care Teams Cord Maker Relationship Specialty Start Date End Date None Reported, Pcp PCP - General Family Medicine 02/16/21 documented as of this encounter
--- OUTSIDE RECORDS SUMMARY | 2022-05-02 12:04 | XMS_ITS | Encounter Summary ---
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 - 01/15/2022 4:22 PM CDT She has been getting transfusions at [facility]. Her hgb is better at 7.2 today. 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 Cintia Carr Telephone Encounter - Jocelyne Bales - 01/15/2022 3:56 PM CDT Outside labs collected on 01/15/2022 have been received. The fax has been scanned into the patient record via [employer], and the CBC results are as noted below. Hemoglobin: 7.2 Hematocrit: 24.2 WBC: 4.65 ANC: 2.82 Platelets: 48 Please note: Are there additional labs reported on the outside report? Yes documented in 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 Care Teams Steam Tunnel Feeder Relationship Specialty Start Date End Date Elsewhere, Pcp PCP - General 11/04/21 documented as of this encounter
--- OUTSIDE RECORDS SUMMARY | 2022-05-02 12:04 | XMS_ITS | Encounter Summary ---
:1970 Author Organization [facility] Address [address] [place] [address] Care Team Providers Name Role Phone None Reported, Pcp Primary Care Provider Unavailable Encounter Details Date Type Department Care Team Description 11/01/2021 Documentation Division of Hematology in Isidro Zamarripa[place], [place] Murphy, B.Ch. 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 - 11/01/2021 9:19 AM CDT The patient was due to return on 10/24/2021 but did not attend the visit. I will communicate with Dr. Govea and I would be happy to see the patient whenever is most beneficial from a timing standpoint. documented in 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 Additional Health Concerns Infection Onset Date Last Indicated Resolved Time COVID19 Pending 10/24/2021 11/05/2021 11/05/2021 11:54 PM CDT documented as of this encounter Care Teams Foreign Student Adviser Relationship Specialty Start Date End Date None Reported, Pcp PCP - General Family Medicine 02/16/21 documented as of this encounter
--- OUTSIDE RECORDS SUMMARY | 2022-05-02 12:04 | XMS_ITS | Encounter Summary ---
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 - 01/09/2022 4:19 PM CDT Patient has been scheduled with Dr. Govea for 02/14. Jayro sent labs from the last 9 draws - 01/07/2022 and back to 11/05/21. DX: Myelofibrosis [place]: Fedratinib 400 mg po daily; CLAIRE Labs: Friday, Blood on Friday. Please review and advise any change to plan of care. Thanks, Kamla NARAYAN Telephone Encounter - Farida Quesada - 01/09/2022 11:00 AM CDT Outside labs collected on January 07, 2022, have been received. The fax has been scanned into the patient record via Tivra, and the CBC results are as noted below. Hemoglobin: 6.0 Hematocrit: 19.9 WBC: 3.59 ANC: 2.23 Platelets: 67 Week of December 31, 2021: Hemoglobin : 6.3 Hematocrit :20.5 WBC: 3.73 ANC: 2.27 PLT 69 Please note: Are there additional labs reported on the outside report? Yes - Additional CBCs going back to November 05, 2021. Thanks, Farida Adams MAA Telephone Encounter - Kamla Patel R.N. - 01/09/2022 9:29 AM CDT I called patient's spouse, Gian back to let him know that Dr. Govea approves. He wonders why she required 2 bags of pRBC's last week and this week. Is this going to continue? He also let me know that we should be able to see her records- Karol at [facility] tells him we can see them. I assured him that I cannot. I've attempted to request to view, but typically they have to sign forms through that institution for us to be able to see them. He asked me to call her at [phone] to see if this can be figured out. They would like Dr. Govea to be able to accessher records. That number was disconnected. I found [phone] online I called and spoke with Donna NARAYAN at the [facility]. She assures me that we cannot see their lab work - they do not have EPIC Patient has not hit hgb 7 g/dL since 5/9. 11:30 today she is getting the second unit. She has required 2 units the past few weeks and I barely getting to hgb 6.0 g/dL. They are also concerned that she's requiring more blood and she doesn't even reach 7. They are faxing us her labs to review/trend. I see there was a request to have them come back on 01/23 - however the schedulers were not able to reach them. Donna NARAYAN will pass the [facility] office number to them to call and schedule back with you. Telephone Encounter - Johanny Villatoro - 01/09/2022 8:10 AM CDT Spouse called: Patients hgb was 6 on Friday, prior to getting RBCs yesterday. Spouse thinks Dr. Govea needs to approve the second unit of RBCs this week, scheduled for today at 11am at [facility]. Gian ph:[phone] Thank you Johanny [facility] documented in 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 Care Teams Gridcap Machine Operator Relationship Specialty Start Date End Date Elsewhere, Pcp PCP - General 11/04/21 documented as of this encounter
--- OUTSIDE RECORDS SUMMARY | 2022-05-02 12:04 | XMS_ITS | Encounter Summary ---
:1970 Author Organization [facility] Address [address] [place] [address] Care Team Providers Name Role Phone Elsewhere, Pcp Primary Care Provider Unavailable Encounter Details Date Type Department Care Team Description 10/24/2021 Clinical Communication Division of Hematology Kavin Pineda, in [facility] MurphyB.S. 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 - 11/19/2021 1:53 PM CDT Addended by: KAVIN PINEDA on: 11/19/2021 01:53 PM Modules accepted: Orders Addendum Note - Nuvia Shaver R.N. - 11/19/2021 12:12 PM CDT Addended by: NUVIA SHAVER on: 11/19/2021 12:12 PM Modules accepted: Orders Telephone Encounter - Nuvia Shaver R.N. - 11/19/2021 12:10 PM CDT I spoke with the and he said they need a refill of the Inrebic, but at her last visit you had mentioned she should go up on the dose to 400 mg daily. I did see that in your last visit note also. I pended a new script with that dose for you. If the change is ok with you, can you review and sign? Cintia Carr Telephone Encounter - Otilia Moseley R.N. - 10/24/2021 12:44 PM CDT Received a call from the desk stating that Patient's , Gian, came to the floor and states patient would like to have Blood transfusion at [facility] on Friday and not today at [facility]. I called and spoke to Gian, Authorization on file. He states that Jennifer is going to [facility] tomorrow for type and screen and that they would need a letter stating that she needs 1 unit of pRBC. Patient normally gets transfusions at [facility] and sees provider Donna. I called [facility] [phone] and spoke with Thania. Informed her that patient needs 1 unit of pRBC for HGB of 6.8. She asked that we sent a letter stating this and she would call patient to set up. She will also contact local provider, Donna. Dr. Pineda notified. documented in this encounter Plan of Treatment Not on filedocumented as of this encounter Results Type and Screen (with reflex Antibody ID) (10/24/2021 9:38 AM CDT) Patholo gist Method Time Signature ABORh A Pos Not 10/24/2021 ETRM applicable 2:19 PM CDT Antibody Negative Negative 10/24/2021 ETRM Screen 2:28 PM CDT Type & Screen 10/27/2021 10/24/2021 ETRM Expiration 23:59 2:19 PM CDT Testing [place] DEFAULT 10/24/2021 ETRM Location 1:44 PM CDT Specimen Anatomical Collection Method Collection Time Receive d Time (Source) Location / / Volume Laterality Blood (Blood, 10/24/2021 9:38 AM 10/25/19 1:44 Venous) CDT PM CDT Kavin Ardon LAB BLOOD BANK TEST ORDERABL ES Performing Organization Address City/State/ZIP Code Phon e Number [facility] - [address] [place], [place] [address] [facility] [place] [address] Laboratories-[facility] [address] documented in this encounter Visit Diagnoses Diagnosis Myelofibrosis Primary (HCC) - Primary documented in this encounter Additional Health Concerns Infection Onset Date Last Indicated Resolved Time COVID19 Pending 10/24/2021 11/05/2021 11/05/2021 11:54 PM CDT documented as of this encounter Care Teams Knock Up Assembler Relationship Specialty Start Date End Date Elsewhere, Pcp PCP - General 11/04/21 documented as of this encounter
--- OUTSIDE RECORDS SUMMARY | 2022-05-02 12:04 | XMS_ITS | Encounter Summary ---
:1970 Author Organization [facility] Address [address] [place] [address] Care Team Providers Name Role Phone Elsewhere, Pcp Primary Care Provider Unavailable Reason for Referral Outpatient (Routine) - Authorized Specialty Diagnoses / Procedures Referred By Contact Refer red To Contact Hematology [facility] Katrina ArringtonB[facility] [address] [place] [phone] Referral ID Status Reason Start Date Expiration Date Visits V isits Requested Authorized [id number] Authorized 02/14/2022 02/14/2023 1 1 Outpatient (Routine) - Closed Specialty Diagnoses / Procedures Referred By Contact Refer red To Contact General Surgery Diagnoses Myelofibrosis Primary (HCC) [facility] [address] [place] [phone] Referral ID Status Reason Start Date Expiration Date Visits Requ ested Visits Authorized [id number] Closed 02/14/2022 02/14/2023 1 1 Reason for Visit Outpatient (Routine) - Closed Specialty Diagnoses / Procedures Referred By Contact Refer red To Contact Hematology On[facility] Katrina Higgins.B.S[facility] [address] [place] [phone] Referral ID Status Reason Start Date Expiration Date Visits Requ ested Visits Authorized [id number] Closed 10/24/2021 10/24/2022 1 1 Encounter Details Date Type Department Care Team Description 02/14/2022 Office Visit Division of Hematology Xuan Myelo fibrosis Primary in [facility], (HCC) (Primary Dx) [place] FreddyB.B.S. 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 - 02/14/2022 9:30 AM CDT SUBJECTIVE CHIEF COMPLAINT/REASON FOR VISIT Primary myelofibrosis. HISTORY OF PRESENT ILLNESS Mrs. Dobbs is a pleasant 51-year-old lady with primary myelofibrosis who is here accompanied by joselinmerna. She has symptomatic splenomegaly and transfusion-dependent anemia. Prior treatments have included Jakafi, alisertib, and 9-ING clinical trial. Most recently she has been on fedratinib since June of 2021 initiated at 200 mg daily. In July, we increased the dose to 300 mg alternating with 200 mg and in October of this year, she was ramped up to 400 mg. However, it led to increasing transfusion requirements without any change in spleen size. Hence, since the last week, she has been taking fedratinib 100 mg daily. She continues to have significant enlargement of the spleen 30 cm on ultrasound imaging, and is symptomatic, with constipation, bloating, early satiety, nausea, and is requiring narcotics for pain control. She has been requiring 2 units of red blood cell transfusion every other week. On Friday, February 12, her hemoglobin was 5.6 g/dL and she was transfused 2 units of RBCs and on recheck on 02/13, she was 6.5 g/dL, We discussed her treatment options and at this time we are contemplating proceeding with a splenectomy since medical therapies have been ineffective in controlling the splenomegaly. OBJECTIVE PHYSICAL EXAMINATION Vital Signs: Height is 174 cm, weight 94.3 kg, temperature 35.5. Pulse 120, regular. Blood pressure 121/80. Abdomen: Significantly distended with massive splenomegaly occupying the majority of the abdomen. DIAGNOSTICS Laboratory studies reviewed. 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 Hence she is down to 100 mg daily and will taper herself off therapy. I have requested a General Surgery consultation for consideration of splenectomy at this time, and she is agreeable to proceed. I will follow up once surgical consultation has been completed. She will receive red blood cell transfusion tomorrow since her hemoglobin is down to 6.5 g/dL. I explained to her the increasing transfusion requirements are likely due to the massive splenomegaly. #4 Pulmonary hypertension She is on torsemide. #5 Consideration of allogeneic transplant Dr. Zamarripa has discussed with her in the past. At this time we are deferring transplant until resolution of splenomegaly. #6 Followup I will follow up on the surgical consultation. Nasrin ForemanS. CT CT Job ID: [id number] documented in this encounter Plan of Treatment Scheduled Orders Name Type Priority Associated Diagnoses Order S chedule CBC with Lab Routine Myelofibrosis Primary Expect ed: Differential, ([facility]) 05/17/2022 Blood (Approximate), Expires: 05/17/2023 SPSMA Result Pathology and Routine Myelofibrosis Primary Expec latonya: Cytology ([facility]) 05/17/2022 (Approximate), Expires: 02/14/2023 LD (Lactate Lab Routine Myelofibrosis Primary Expect ed: Dehydrogenase) ([facility]) 05/17/2022 (Approximate), Expires: 05/17/2023 Scheduled Referrals Name Type Priority [facility] - [facility] Referral Routine Myelofibrosis Pr imary Expected: Spleen consult ([facility]) 02/14/2022 (clinic) (Approximate), Expires: 05/17/2023 Hematology office Outpatient Referral Routine Exp ected: visit (clinic) 05/17/2022 (Approximate), Expires: 05/17/2023 documented as of this encounter Visit Diagnoses Diagnosis Myelofibrosis Primary (HCC) - Primary documented in this encounter Care Teams Clinical Assessment Manager Relationship Specialty Start Date End Date Elsewhere, Pcp PCP - General 11/04/21 documented as of this encounter
--- OUTSIDE RECORDS SUMMARY | 2022-05-02 12:04 | XMS_ITS | Encounter Summary ---
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 - 02/22/2022 8:33 AM CDT I returned call to patient and her Gian. We reviewed labs from earlier this week. She states that yesterday she had labs and hemoglobin was 6.7 so she is on her way to receive 1 unit of pRBC and will recheck labs on Friday. She is currently on Fedratinib 100 mg daily. She states she is aboutdone with it. I informed her I would watch for her labs to be sent and we will review. She verbalized understanding. Telephone Encounter - Johanny Villatoro - 02/21/2022 3:48 PM CDT Gian, spouse, returned a call to Otilia NARAYAN. Gian is with Jennifer who will give verbal approval to speak with her care team. Otilia NARAYAN is away today and Gian will wait for a nurse to return his call. Gian and Jennifer: [phone] Thank you Johanny [facility] Telephone Encounter - Otilia Moseley R.N. - 02/19/2022 3:22 PM CDT Patient of Dr. Govea who is away. 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 Labs 02/18/22: HGB: 6.3 HCT: 20.6 WBC: 3.13 PLT: 79 ANC: 1.80 Per Fax: patient received 1 unit of pRBC on 02/19. I called patient and left message to return my call. Please review and advise if any changes are needed. Thanks. Telephone Encounter - Jocelyne Bales - 02/19/2022 3:03 PM CDT [facility] sending results for labs collected on 02/14/2022. Fax has been sent to scanning. documented in 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 Care Teams Cottage Parent Relationship Specialty Start Date End Date Elsewhere, Pcp PCP - General 11/04/21 documented as of this encounter
--- OUTSIDE RECORDS SUMMARY | 2022-05-02 12:04 | XMS_ITS | Encounter Summary ---
:1970 Author Organization [facility] Address [address] [place] [address] Care Team Providers Name Role Phone Elsewhere, Pcp Primary Care Provider Unavailable Reason for Referral Outpatient (Routine) - Closed Specialty Diagnoses / Procedures Referred By Contact Refer red To Contact Diagnoses Myelofibrosis Primary (HCC) Janusz Govea M.B.B.S. [facility] Procedures US Spleen US Abdomen Limited [address] [place] [address] [phone] Referral ID Status Reason Start Date Expiration Date Visits Requ ested Visits Authorized [id number] Closed 10/24/2021 10/24/2022 1 1 Reason for Visit Outpatient (Routine) - Closed Specialty Diagnoses / Procedures Referred By Contact Refer red To Contact Diagnoses Myelofibrosis Primary (HCC) Janusz Govea M.B.B.S. [facility] Procedures US Spleen US Abdomen Limited [address] [place] [phone] Referral ID Status Reason Start Date Expiration Date Visits Requ ested Visits Authorized [id number] Closed 10/24/2021 10/24/2022 1 1 Encounter Details Date Type Department Care Team Description 02/13/2022 Hospital Encounter Department of Alexandria Govea Primary Radiology, Lexus Boudreaux ([facility]) [place], in M.AundreaB.S. 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 fedratinib (Inrebic) 100 Take 4 capsules 240 capsule 2 11/1903/11/2022 mg capsule (400 mg total) by mouth daily. morphine (MSIR) 15 mg Take 15 mg by mouth 0 03/11/2022 tablet at bedtime. oxyCODONE (OXY-IR) 5 mg Take 2 capsules by 0 02/1203/18/2022 immediate release mouth every 4 capsule (four) hours as needed. Research IRB [id number] Take by mouth. Pt 0 03/11/2022 alisertib ([id number]) 10 is unsure of what mg DR tablet this medication is- not sure if taking or not ruxolitinib (JAKAFI) 10 Take 10 mg by mouth 0 03/11/2022 mg tablet 2 (two) times a day. Take at about the same time each day. Take with or without food. sildenafil (REVATIO) 20 Take 1 tablet (20 90 tablet 3 11/1303/11/2022 mg tablet mg total) by mouth 3 (three) times a day. torsemide (DEMADEX) 20 Take 1 tablet (20 20 tablet 1 202003/11/2022 mg tablet mg total) by mouth 2 (two) times a day. documented as of this encounter Plan of Treatment Not on filedocumented as of this encounter Procedures Procedure Name Priority Date/Time Associated Diagnosis Comme nts US SPLEEN RAD - Routine 02/13/2022 4:46 Myelofibrosis Results fo r this (most inpatients PM CDT Primary (HCC) procedure are in and all the results outpatients) section. documented in this encounter Results US Spleen (02/13/2022 4:46 PM CDT) Anatomical [...] tiny echogenic lesions likely reflect hemangiomas. Janusz CAMPOS US PROCEDURES documented in this encounter Visit Diagnoses Diagnosis Myelofibrosis Primary (HCC) documented in this encounter Care Teams Mobile Application Developer Relationship Specialty Start Date End Date Elsewhere, Pcp PCP - General 11/04/21 documented as of this encounter
--- OUTSIDE RECORDS SUMMARY | 2022-05-02 12:04 | XMS_ITS | Encounter Summary ---
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 - 12/11/2021 2:45 PM CDT She has been getting Inrebic filled at [facility]. Fax sent back to Sulema short with this info noted on it. Telephone Encounter - Yelena Liang - 12/11/2021 12:21 PM CDT Images from the original note were not included. Please see efax folder for refill request of Ester. documented in 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 Care Teams Emergency Veterinarian Relationship Specialty Start Date End Date Elsewhere, Pcp PCP - General 11/04/21 documented as of this encounter
--- OUTSIDE RECORDS SUMMARY | 2022-05-02 12:04 | XMS_ITS | Encounter Summary ---
:1970 Author Organization [facility] Address [address] [place] [address] Care Team Providers Name Role Phone None Reported, Pcp Primary Care Provider Unavailable Reason for Referral Outpatient (Routine) - Closed Specialty Diagnoses / Procedures Referred By Contact Refer red To Contact [facility]ovascular [facility] [address] [place] [phone] Referral ID Status Reason Start Date Expiration Date Visits Requ ested Visits Authorized [id number] Closed 10/24/2021 10/24/2022 1 1 Reason for Visit Outpatient (Routine) - Closed Specialty Diagnoses / Referred By Contact Referred To Contact Procedures Cardiovascular Diseases / Diagnoses Hypertension Pulmonary (HCC) [facility] Cardiovascular Disease M.B.B.S. [address] [place] [phone] Referral ID Status Reason Start Date Expiration Date Visits Requ ested Visits Authorized [id number] Closed 09/12/2021 09/12/2022 1 1 Encounter Details Date Type Department Care Team Description 10/24/2021 Comprehensive Visit Department of Parish Tijerina Pulmonary (HCC) (Primary Dx); Cardiovascular Charity, Regurgitation Tricuspid; Medicine in [facility].B.B.S Failure Heart Right (HCC) [place] 200 [facility] [address] [facility] [phone] Social History Tobacco Use Types Packs/Day Years [...] at Date Recorded 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 - 10/24/2021 1:00 PM CDT SUBJECTIVE REASON FOR CONSULT Pulmonary hypertension followup. HISTORY OF PRESENT ILLNESS Mrs. Dobbs is a pleasant 51-year-old female with history of myelofibrosis diagnosed in August 2015, pulmonary hypertension, right heart failure, with last exacerbation leading to hospitalization in May 2021, severe tricuspid regurgitation, who presents for pulmonary hypertension follow up. Shewas scheduled to undergo right heart catheterization in July, which was somehow canceled. The reason for that is unclear, and patient is not even aware that she had a procedure scheduled. Overall, she describes no changes in her functional status. She can walk a quarter to a half of a block withoutstopping. Besides stable exertional dyspnea, she has minimal and stable lower extremity edema. Her weight is stable at around 207 pounds, and she is compliant with low-salt diet and torsemide 20 mg b.i.d. She sometimes has dizziness on lying flat but denies orthostatic dizziness or exertional dizziness. She denies any chest pain or pressure or palpitations. Past medical history, family history, and social history were reviewed. Pertinent cardiac medications include torsemide 20 mg b.i.d. OBJECTIVE PHYSICAL EXAMINATION Vitals: 10/24/21 1308 SpO2: 100% General: Sitting comfortably, not in acute distress. Neck: Jugular venous pressure is minimally elevated to 9-cm water with prominent V wave. Lungs: Clear to auscultation bilaterally. Cardiac: Regular rate and rhythm. Normal S1. Prominent P2. A grade 2/6 ejection systolic murmur at upper sternal border and 3/6 holosystolic murmur at lower sternal border. No rubs or gallops appreciated. Abdomen: Soft. Liver margin 2+. Spleen size 2+. Extremities: Warm, 1+ pedal edema up to mid legs. DIAGNOSTICS Her V/Q scan was negative for PE. GEMA and CCP were negative. Recent hemoglobin is 6.8. PFTs were normal, with mildly reduced DLCO. Overnight oximetry showed multiple episodes of desaturation in 80s, suggestive of sleep-disordered breathing. ASSESSMENT / PLAN #1 Pulmonary hypertension in setting of myelofibrosis, suspect group 5 #2 NYHA functional class III #3 Chronic RV failure #4 Severe tricuspid regurgitation due to #1 #5 Myelofibrosis #6 Untreated sleep apnea #7 Active marijuana use Mrs. Dobbs is a 51-year-old female who presents for followup of pulmonary hypertension. This followup today was supposed to be cath return, but unfortunately, patient did not undergo right heart catheterization; the reason for this is unclear. She describes no changes in her functional status. Her GEMA and CCP were negative. V/Q scan did not show evidence of chronic thromboembolic disease. PFTs showed mildly reduced DLCO, and she walked 421 m on 6-minute walk test, which is about 82% of predicted, and her oxygen saturation remained stable. She has lower extremity edema today on exam but has not taken her diuretic. Otherwise, she denies any changes in her functional status. I would recommend proceeding with right heart catheterization to evaluate the pulmonary hypertension etiology--pre versus post capillary. She has risk factors for left heart disease as well as for high-output failure in setting of anemia. Once the right heart catheterization is completed and if she has significant precapillary pulmonary hypertension, I would consider initiation of pulmonary vasodilator therapy. She is being considered for bone marrow transplant, which would hopefully also help with pulmonary hypertension. We will continue to follow up with her to evaluate response of pulmonary vasodilator therapy on pulmonary hypertension if she is a candidate for the same. I have scheduled her for catheterization on Friday and a phone appointment with me on Friday per patient's request. She does have appointments for some lab testing and blood transfusion the rest of the days and unable to have visit sooner than these d ays. At this time, I recommend continuing compliance with low-salt diet and diuretic. I answered allof the patient's questions to the best of my knowledge, and she agrees to the plan. Time spent in patient care 30 [address]. [address] CT Job ID: [id number] documented in this encounter Plan of Treatment Scheduled Referrals Name Type Priority Associated Order Schedule Diagnoses Cardiovascular Disease Outpatient Referral Routine Expected: office visit (clinic) 2021 (Approximate), Expires: 01/23/2023 documented as of this encounter Visit Diagnoses Diagnosis Hypertension Pulmonary (HCC) - Primary Regurgitation Tricuspid Failure Heart Right (HCC) documented in this encounter Additional Health Concerns Infection Onset Date Last Indicated Resolved Time COVID19 Pending 10/24/2021 11/05/2021 11/05/2021 11:54 PM CDT documented as of this encounter Care Teams Accounting Assistant Relationship Specialty Start Date End Date None Reported, Pcp PCP - General Family Medicine 02/16/21 documented as of this encounter
--- OUTSIDE RECORDS SUMMARY | 2022-05-02 12:04 | XMS_ITS | Encounter Summary ---
:1970 Author Organization [facility] Address [address] [place] [id number] Care Team Providers Name Role Phone Elsewhere, Pcp Primary Care Provider Unavailable Encounter Details Date Type Department Care Team Description 02/13/2022 Hospital Encounter Department of Gangat, Myelofib rosis Primary Laboratory Medicine [facility], ([facility]) and Pathology, [facility] in [address] [place] [id number] [place], [place] [phone] (Work) [phone] Social History Tobacco Use Types Packs/Day Years [...] at Date Recorded 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 Research IRB [id number] Take by mouth. Pt 0 03/11/2022 alisertib ([id number]) 10 is unsure of what mg DR [...] Name Priority Date/Time Associated Diagnosis Comme nts SPSMA RESULT Routine 02/13/2022 4:01 Myelofibrosis Primary Res ults for this PM CDT (HCC) procedure are i n the results section. CBC WITH Routine 02/13/2022 4:01 Myelofibrosis Primary Res ults for this DIFFERENTIAL, B PM CDT (HCC) procedure ar e in the results section. LACTATE DEHYDROGENASE Routine 02/13/2022 4:01 Myelofibrosis Pr imary Results for this (LD), S PM CDT (HCC) procedure are i n the results section. COMPREHENSIVE Routine 02/13/2022 4:01 Myelofibrosis Primary Re sults for this METABOLIC PANEL, S/P PM CDT (HCC) procedu re are in the results section. documented in this encounter Results (ABNORMAL) LD (Lactate Dehydrogenase) (02/13/2022 4:01 PM CDT) Patholo gist Method Time Signature Lactate 676 (H) 122 - 222 02/13/2022 DTL Dehydrogenase U/L 5:26 PM CDT (LD), S Specimen Anatomical Collection Method Collection Time Receive d Time (Source) Location / / Volume Laterality Blood (Blood, 02/13/2022 4:01 PM 02/14/20 4:30 Venous) CDT PM CDT Janusz Ardon LAB BLOOD NON ADD-ON Performing Organization Address City/State/ZIP Code Phon e Number [facility] - [address] [place], [place] [address] [place] [address] Laboratories-[facility] [address] (ABNORMAL) Comprehensive Metabolic Panel (02/13/2022 4:01 PM CDT) Analysis Performed At Patho logist Time Signature Potassium, S 4.7 3.6 - 5.2 02/13/2022 DTL mmol/L 5:42 PM CDT Sodium, S 140 135 - 145 02/13/2022 DTL mmol/L 5:42 PM CDT Chloride, S 104 98 - 107 02/13/2022 DTL mmol/L 5:42 PM CDT Bicarbonate, S 27 22 - 29 02/13/2022 DTL mmol/L 5:42 PM CDT Anion Gap 9 7 - 15 02/13/2022 DTL 5:42 PM CDT BUN (Blood Urea 34 (H) 6 - 21 02/13/2022 DTL Nitrogen), S mg/dL 5:42 PM CDT Creatinine 1.14 (H) 0.59 - 02/13/2022 DTL 1.04 mg/dL 5:42 PM CDT eGFR-Non 55 (L) >=60 02/13/2022 DTL Black/ mL/min/BSA 5:42 PM CDT Libyan Comment: ----ADDITIONAL INFORMATION---- Estimated GFR calculated using the 2009 CKD_EPI creatinine equation. eGFR-Black/ 63 >=60 mL/min/BSA 2021 5:42 PM CDT DTL Comment: ----ADDITIONAL INFORMATION---- Estimated GFR calculated using the 2009 CKD_EPI creatinine equation. Calcium, Total, S 8.3 (L) 8.6 - 10.0 mg/dL 02/13/2022 5:42 PM CDT DTL Glucose, S 122 70 - 140 mg/dL 02/13/2022 5:42 PM CDT D TL Protein, Total, S 6.0 (L) 6.3 - 7.9 g/dL 02/13/2022 5:42 P M CDT DTL Albumin, S 4.7 3.5 - 5.0 g/dL 02/13/2022 5:42 PM CDT D TL Aspartate Aminotransferase 33 8 - 43 U/L 02/13/2022 5 :42 PM CDT DTL (AST), S Alkaline Phosphatase, S 41 35 - 104 U/L 02/13/2022 5: 42 PM CDT DTL Alanine Aminotransferase 30 7 - 45 U/L 02/13/2022 5:4 2 PM CDT DTL (ALT), S Bilirubin, Total, S 1.1 <=1.2 mg/dL 02/13/2022 5:42 PM CDT DTL Specimen Anatomical Collection Method Collection Time Receive d Time (Source) Location / / Volume Laterality Blood (Blood, 02/13/2022 4:01 PM 08/03/20 22 4:30 Venous) CDT PM CDT Janusz AlexandraSZahraa LAB BLOOD ADD-ON Performing Organization Address City/State/[facility] Code Phon e Number [facility] - [address] [place], [place] [address] [place] [address] [place] [address] [facility] (ABNORMAL) SPSMA Result (02/13/2022 4:01 PM CDT) [facility] Method Time Signature Neutrophilic Segs 70 50 - 75 % 02/13/2022 DHPM and Bands 7:21 PM CDT Lymphocytes 14 (L) 18 - 42 % 02/13/2022 DHPM 7:21 PM CDT Monocytes 4 2 - 11 % 02/13/2022 DHPM 7:21 PM CDT Eosinophils 1 1 - 3 % 02/13/2022 DHPM 7:21 PM CDT Metamyelocytes 2 (H) <1 % 02/13/2022 DHPM 7:21 PM CDT Myelocytes 9 (H) <0.5 % 02/13/2022 DHPM 7:21 PM CDT Nucleated RBC 11 /100 WBC 02/13/2022 DHPM 7:21 PM CDT Manual Absolute 1.82 1.56 - 02/13/2022 PM Neutrophil Count 6.45 7:21 PM CDT x10(9)/L Comment: ----ADDITIONAL INFORMATION---- The manual absolute neutrophil count is derived from a manual differential count and therefore is not exactly comparable to the automated absolute halie trophil count. Interpretation Moderate dacrocytes are present. 7:21 PM CDT [facility] Reviewed by: Liz 02/13/2022 7:21 PM CDT [facility] Specimen Anatomical Collection Method Collection Time Receive d Time (Source) Location / / Volume Laterality Blood (Blood, 02/13/2022 4:01 PM 02/14/20 4:30 Venous) CDT PM CDT Janusz AlexandraSZahraa LAB BLOOD ADD-ON Performing Organization Address City/State/[facility] Code Phon e Number [facility] - [address] [place], [place] [address] [place] [address] [facility] [address] (ABNORMAL) CBC with Differential, Blood (02/13/2022 4:01 PM CDT) [facility] gist Method Time Signature Hemoglobin 6.5 (L) 11.6 - 02/13/2022 DTL 15.0 g/dL 4:41 PM CDT Hematocrit 20.8 (L) 35.5 - 02/13/2022 DTL 44.9 % 4:41 PM CDT Erythrocytes 2.31 (L) 3.92 - 02/13/2022 DTL 5.13 4:41 PM CDT x10(12)/L MCV 90.0 78.2 - 02/13/2022 DTL 97.9 fL 4:41 PM CDT RBC Distrib Width 23.8 (H) 12.2 - 02/13/2022 DTL 16.1 % 7:07 PM CDT Platelet Count 50 (L) 157 - 371 02/13/2022 DTL x10(9)/L 7:05 PM CDT Leukocytes 2.6 (L) 3.4 - 9.6 02/13/2022 DTL x10(9)/L 7:16 PM CDT Comment: Corrected for normoblasts. Neutrophils SeeComment 1.56 - 6.45 x10(9)/L 02/13/2022 7:16 PM CDT DTL Comment: Auto-diff results not valid. Se e manual differential. Specimen Anatomical Collection Method Collection Time Receive d Time (Source) Location / / Volume Laterality Blood (Blood, 02/13/2022 4:01 PM 02/14/20 4:30 Venous) CDT PM CDT Janusz Ardon LAB BLOOD ADD-ON Performing Organization Address City/State/ZIP Code Phon e Number [facility] - [address] [place], [place] [address] [place] [address] [facility] [address] documented in this encounter Visit Diagnoses Diagnosis Myelofibrosis Primary (HCC) documented in this encounter Care Teams Finishing Wire Sawyer Relationship Specialty Start Date End Date Elsewhere, Pcp PCP - General 11/04/21 documented as of this encounter
--- OUTSIDE RECORDS SUMMARY | 2022-05-02 12:05 | XMS_ITS | Encounter Summary ---
:1970 Author Organization [facility] Address [address] [place] [address] Care Team Providers Name Role Phone None Reported, Pcp Primary Care Provider Unavailable Encounter Details Date Type Department Care Team Description 08/17/2021 Orders Only Division of Hematology in [place]ri[place]idro abernathy M.B.[place], [place] B.Ch. [address] 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
--- OUTSIDE RECORDS SUMMARY | 2022-05-02 12:05 | XMS_ITS | Encounter Summary ---
:1970 Author Organization [facility] Address [address] [place] [address] Care Team Providers Name Role Phone None Reported, Pcp Primary Care Provider Unavailable Encounter Details Date Type Department Care Team Description 07/23/2021 Hospital Encounter Department of Gangat, Myelofib rosis Primary Laboratory Medicine [facility], ([facility]) and Pathology, [facility] in [address] [place] [id number] [place], [place] [phone] (Work) [phone] Social History Tobacco Use Types Packs/Day Years [...] at Date Recorded 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 cyanocobalamin (VITAMIN Take 100 mcg by 0 B12) 100 mcg tablet mouth once a week. Mondays folic acid 1 mg tablet Take by mouth daily. 0 LORazepam (ATIVAN) 0.5 Take 1-2 mg by mouth 0 mg tablet at bedtime as needed for anxiety [...] torsemide (DEMADEX) 20 Take 1 tablet (20 mg 30 tablet 1 mg tablet total) by mouth daily. calcium acetate,phosphat Take 2 capsules 24 capsule 0 202008/14/2021 bind, (PHOSLO) 667 mg (1,334 mg total) by (169 mg calcium) capsule mouth 3 (three) times a day with meals. fedratinib (INREBIC) 100 Take 2 capsules (200 60 capsule 2 1 08/11/2020 08/15/2021 mg capsule mg total) by mouth daily. Do not start until instructed. morphine (MSIR) 15 mg Take 15 mg by mouth 0 03/11/2022 tablet at bedtime. oxyCODONE (OXY-IR) 5 mg Take 2 capsules by 0 02/1203/18/2022 immediate release mouth every 4 (four) capsule hours as needed. Research IRB [id number] Take by mouth. Pt is 0 03/11/2022 alisertib ([id number]) 10 unsure of what this mg DR tablet medication is- not sure if taking or not ruxolitinib (JAKAFI) 10 Take 10 mg by mouth 0 03/11/2022 mg tablet 2 (two) times a day. Take at about the same time each day. Take with or without food. torsemide (DEMADEX) 20 Take 1 tablet (20 mg 20 tablet 1 03/11/2022 mg tablet total) by mouth 2 (two) times a day. documented as of this encounter Plan of Treatment Not on filedocumented as of this encounter Procedures Procedure Name Priority Date/Time Associated Diagnosis Comme nts HLA CROSSMATCH 10/15/2021 10:43 Results f or this SUMMARY REPORT AM CDT procedure are in the results section. HLA FLOW CYTOMETRIC Routine 10/15/2021 10:43 Resu lts for this CROSSMATCH AM CDT procedure are i n the results section. HLA CLASS I TYPING Routine 09/19/2021 12:01 Resul ts for this LOWRES, DTEST,B PM COMPUTATIONAL GENETICIST procedure ar e in the results section. HLA CLASS I TYPING Routine 09/04/2021 1:59 PM Res ults for this LOWRES, DTEST,B COMPUTATIONAL GENETICIST procedure ar e in the results section. HLA CLASS II TYPING Routine 08/31/2021 10:55 Resu lts for this HIGHRES,DTEST,B AM COMPUTATIONAL GENETICIST procedure ar e in the results section. HLA CLASS I TYPING Routine 08/31/2021 10:55 Resul ts for this HIGHRES,DTEST,B AM COMPUTATIONAL GENETICIST procedure ar e in the results section. HLA CLASS II TYPING Routine 08/31/2021 10:55 Resu lts for this LOWRES, DTEST,B AM COMPUTATIONAL GENETICIST procedure ar e in the results section. HLA CLASS I TYPING Routine 08/31/2021 10:55 Resul ts for this LOWRES, DTEST,B AM COMPUTATIONAL GENETICIST procedure ar e in the results section. SPSMA RESULT Routine 07/23/2021 10:44 Results for this AM COMPUTATIONAL GENETICIST procedure are i n the results section. CBC WITH Routine 07/23/2021 10:44 Myelofibrosis Primary Re sults for this DIFFERENTIAL, B AM COMPUTATIONAL GENETICIST (HCC) procedure ar e in the results section. documented in this encounter Results HLA CROSSMATCH SUMMARY REPORT (10/15/2021 10:43 AM CDT) Specimen (Source) Anatomical Collection Method Collection Time Re ceived Time Location / / Volume Laterality 10/15/2021 10:43 AM CDT Narrative 10/16/2021 12:00 AM CDT This result has an attachment that is no t available. Ordered by an unspecified provider. Default Authenticator Jean LAB HLA ORDERABLES HLA Flow Cytometric Crossmatch, Varies (10/15/2021 10:43 AM CDT) [facility] Method Time Signature FXM Crossmatch [id number] 10/16/2021 [facility] Donor BETHEL MENDEZ 6:35 AM CDT FXM Donor Blood 10/16/2021 [facility] Sample Source 6:35 AM CDT FXM Donor Cell 10/10/2021 10/16/2021 [facility] Date 6:35 AM CDT FXM Recipient 06/07/2021 10/16/2021 [facility] Current Serum 6:35 AM CDT Date FXM Current Negative Not 10/16/2021 [facility] T-Cell Result Applicable 6:35 AM CDT FXM Current -8 See Result 10/16/2021 [facility] T-Cell MCS Comment 6:35 AM CDT Comment: Blood: Negative < 58 FXM Current B-Cell Result Negative Not Applicable 6:35 AM CDT [facility] FXM Current B-Cell MCS 25 See Result Comment 10/17/19 6:35 AM CDT [facility] Comment: Blood: Negative < 108 FXM Test Method Flow Cytometry 10/16/2021 6:35 AM CDT [facility] Comment: ----ADDITIONAL INFORMATION---- This test was developed and its performa nce characteristics determined by [facility] in a manner co nsistent with CLIA requirements. This test has not been demetris ared or approved by the U.S. Food and Drug Administration. CLIA: [id number] ??CLIA Impact Retail Service Merchandiser: VALENTINA GOLD MD,PhD Specimen Anatomical Collection Method Collection Time Receive d Time (Source) Location / / Volume Laterality Blood 10/15/2021 10:43 10/15/2021 AM CDT 10:43 AM CDT Narrative [facility] - 10/16/2021 6:35 AM CDT Specimen Information: Specimen ID: [id number] Specimen Type: Blood Specimen Collection Start Date: 10:43 AM Specimen Received Date: 10/15/2021 10:43 AM Specimen ID: [id number] Specimen Type: Blood Specimen Collection Start Date: 10:43 AM Specimen Received Date: 10/15/2021 10:43 AM Specimen ID: [id number] Specimen Type: Blood Specimen Collection Start Date: 10:43 AM Specimen Received Date: 10/15/2021 10:43 AM Isidro Arrington B.Ch. LAB HLA ORDERABLES Performing Organization Address City/State/ZIP Code Phon e Number [facility] - [address] [place], [place] [address] [facility] [address] [place] [address] Laboratories-[facility] 200 [facility] HLA Class I Typing by Low Resolution, Donor Testing (09/19/2021 12:01 PM COMPUTATIONAL GENETICIST) [facility] Method Time Signature Class I LR [id number] 09/20/2021 [facility] Donor LIANG OCONNOR 4:41 PM COMPUTATIONAL GENETICIST OL A - 1 A2 Not 09/20/2021 [facility] Equivalent Applicable 4:41 PM COMPUTATIONAL GENETICIST A - 2 A11 Not 09/20/2021 [facility] Equivalent Applicable 4:41 PM COMPUTATIONAL GENETICIST A - 1 A*02 Not 09/20/2021 [facility] Molecular Applicable 4:41 PM COMPUTATIONAL GENETICIST A - 2 A*11 Not 09/20/2021 [facility] Molecular Applicable 4:41 PM COMPUTATIONAL GENETICIST B - 1 B62 Not 09/20/2021 [facility] Equivalent Applicable 4:41 PM COMPUTATIONAL GENETICIST B - 2 B35 Not 09/20/2021 [facility] Equivalent Applicable 4:41 PM COMPUTATIONAL GENETICIST B - 1 B*15 Not 09/20/2021 [facility] Molecular Applicable 4:41 PM COMPUTATIONAL GENETICIST B - 2 B*35 Not 09/20/2021 [facility] Molecular Applicable 4:41 PM COMPUTATIONAL GENETICIST Bw - 1 Bw6 Not 09/20/2021 [facility] Equivalent Applicable 4:41 PM COMPUTATIONAL GENETICIST Bw - 2 Bw6 Not 09/20/2021 [facility] Equivalent Applicable 4:41 PM COMPUTATIONAL GENETICIST C - 1 Cw4 Not 09/20/2021 [facility] Equivalent Applicable 4:41 PM COMPUTATIONAL GENETICIST C - 2 Cw4 Not 09/20/2021 [facility] Equivalent Applicable 4:41 PM COMPUTATIONAL GENETICIST C - 1 C*04 Not 09/20/2021 [facility] Molecular Applicable 4:41 PM COMPUTATIONAL GENETICIST C - 2 C*04 Not 09/20/2021 [facility] Molecular Applicable 4:41 PM COMPUTATIONAL GENETICIST Test Method PCR - 09/20/2021 [facility] Reverse SSOP 4:41 PM COMPUTATIONAL GENETICIST Comment: ----ADDITIONAL INFORMATION---- Molecular HLA typing reported as serolog ical equivalents and low to medium resolution molecular value s. ??For convenience, when not defined in the WHO Nomenclature a laboratory defined serologic equivalent has been provided. CLIA: [id number] ??CLIA Impact Retail Service Merchandiser: VALENTINA GOLD MD,PhD Specimen Anatomical Collection Method Collection Time Receive d Time (Source) Location / / Volume Laterality Blood 09/19/2021 12:01 09/19/2021 PM COMPUTATIONAL GENETICIST 12:01 PM COMPUTATIONAL GENETICIST Isidro Arrington, B.Ch. LAB HLA ORDERABLES Performing Organization Address City/State/ZIP Code Phon e Number [facility] - [address] [place], [place] [address] [facility] [address] [place] [address] Laboratories-[facility] [address] [facility] HLA Class I Typing by Low Resolution, Donor Testing (09/04/2021 1:59 PM COMPUTATIONAL GENETICIST) [facility] Method Time Signature Class I LR [id number] 09/06/2021 [facility] Donor LUDMILA MENDEZ 6:49 AM COMPUTATIONAL GENETICIST A - 1 A2 Not 09/06/2021 [facility] Equivalent Applicable 6:49 AM COMPUTATIONAL GENETICIST A - 2 A11 Not 09/06/2021 [facility] Equivalent Applicable 6:49 AM COMPUTATIONAL GENETICIST A - 1 A*02 Not 09/06/2021 [facility] Molecular Applicable 6:49 AM COMPUTATIONAL GENETICIST A - 2 A*11 Not 09/06/2021 [facility] Molecular Applicable 6:49 AM COMPUTATIONAL GENETICIST B - 1 B62 Not 09/06/2021 [facility] Equivalent Applicable 6:49 AM COMPUTATIONAL GENETICIST B - 2 B35 Not 09/06/2021 [facility] Equivalent Applicable 6:49 AM COMPUTATIONAL GENETICIST B - 1 B*15 Not 09/06/2021 [facility] Molecular Applicable 6:49 AM COMPUTATIONAL GENETICIST B - 2 B*35 Not 09/06/2021 [facility] Molecular Applicable 6:49 AM COMPUTATIONAL GENETICIST Bw - 1 Bw6 Not 09/06/2021 [facility] Equivalent Applicable 6:49 AM COMPUTATIONAL GENETICIST Bw - 2 Bw6 Not 09/06/2021 [facility] Equivalent Applicable 6:49 AM COMPUTATIONAL GENETICIST C - 1 Cw4 Not 09/06/2021 [facility] Equivalent Applicable 6:49 AM COMPUTATIONAL GENETICIST C - 2 Cw4 Not 09/06/2021 [facility] Equivalent Applicable 6:49 AM COMPUTATIONAL GENETICIST C - 1 C*04 Not 09/06/2021 [facility] Molecular Applicable 6:49 AM COMPUTATIONAL GENETICIST C - 2 C*04 Not 09/06/2021 [facility] Molecular Applicable 6:49 AM COMPUTATIONAL GENETICIST Test Method PCR - 09/06/2021 [facility] Reverse SSOP 6:49 AM COMPUTATIONAL GENETICIST Comment: ----ADDITIONAL INFORMATION---- Molecular HLA typing reported as serolog ical equivalents and low to medium resolution molecular value s. ??For convenience, when not defined in the WHO Nomenclature a laboratory defined serologic equivalent has been provided. CLIA: [id number] ??CLIA Impact Retail Service Merchandiser: VALENTINA GOLD MD,PhD Specimen Anatomical Collection Method Collection Time Receive d Time (Source) Location / / Volume Laterality Blood 09/04/2021 1:59 PM 1:59 COMPUTATIONAL GENETICIST PM COMPUTATIONAL GENETICIST Isidro Arrington, B.Ch. LAB HLA ORDERABLES Performing Organization Address City/State/ZIP Code Phon e Number [facility] - [address] [place] [phone] [facility] [address] [place] [address] Laboratories-[facility] 200 [facility] HLA Class II Typing by High Resolution, Donor Testing (08/31/2021 10:55 AM COMPUTATIONAL GENETICIST) [facility] Method Time Signature Class II HR [id number] 10/20/2021 [facility] Donor BETHEL MENDEZ 11:01 PM CDT DRB1 - 1 DR1 Not 10/20/2021 [facility] Equivalent Applicable 11:01 PM CDT DRB1 - 2 DR12 Not 10/20/2021 [facility] Equivalent Applicable 11:01 PM CDT DRB1 - 1 DRB1*01:03 Not 10/20/2021 [facility] Allele Applicable 11:01 PM CDT DRB1 - 2 DRB1*12:01 Not 10/20/2021 [facility] Allele Applicable 11:01 PM CDT IFR287 - 1 DR52 Not 10/20/2021 [facility] Equivalent Applicable 11:01 PM CDT OVY800 - 1 DRB3*02:02 Not 10/20/2021 [facility] Allele Applicable 11:01 PM CDT DQB1 - 1 DQ5 Not 10/20/2021 [facility] Equivalent Applicable 11:01 PM CDT DQB1 - 2 DQ7 Not 10/20/2021 [facility] Equivalent Applicable 11:01 PM CDT DQB1 - 1 DQB1*05:01 Not 10/20/2021 [facility] Allele Applicable 11:01 PM CDT DQB1 - 2 DQB1*03:01 Not 10/20/2021 [facility] Allele Applicable 11:01 PM CDT DPB1 - 1 DPB1*04:01 Not 10/20/2021 [facility] Allele Applicable 11:01 PM CDT DPB1 - 2 DPB1*04:01 Not 10/20/2021 [facility] Allele Applicable 11:01 PM CDT DRB1 DRB1*12:10/D 10/20/2021 [facility] Unresolved RB1*12:84 11:01 PM Alleles CDT DQB1 see below 10/20/2021 [facility] Unresolved 11:01 PM Alleles CDT Comment: DQB*05:183/DQB*05:193/DQB*05:194/DQB*05: 195/DQB*05:216/ DQB*05:232/DQB*05:234/DQB*05:237/DQB*05: 263/DQB*05:275 DQB*03:276N/DQB*03:292/DQB*03:293/DQB*03 :294/DQB*03:297/ DQB*03:326/DQB*03:342/DQB*03:350/DQB*03: 419/DQB*03:426/ DQB*03:431/DQB*03:439/DQB*03:454/DQB1*03 :01:01:21Q DPB1 Unresolved DPB*939:01/DPB1*04:01:01:24N 10/20 11:01 PM [facility] Alleles CDT Test Method PCR - Next Generation Sequencing 10/20 11:01 PM [facility] CDT Test Method PCR - Next Generation Sequencing 10/20 11:01 PM [facility] CDT Comment: ----ADDITIONAL INFORMATION---- Common, intermediate and well-documented (CIWD) HLA alleles are resolved or listed if not resolved. Listing of ambiguous rare alleles not resolved can be found i n the corresponding unresolved field. (Albert ROSENBERG, Cesar J, Nolan K, et al. 2020; 1-16 [email or web address]://doi.org/10.1111/T AN.21343). For convenience, when not defined in the WHO Nomenclature a laboratory defined serologic equivalent has been provided. This test was developed and its performa nce characteristics determined by [facility] in a manner co nsistent with CLIA requirements. This test has not been demetris ared or approved by the U.S. Food and Drug Administration. CLIA: [id number] ??CLIA Impact Retail Service Merchandiser: VALENTINA GOLD MD,PhD Specimen Anatomical Collection Method Collection Time Receive d Time (Source) Location / / Volume Laterality Blood 08/31/2021 10:55 08/31/2021 AM COMPUTATIONAL GENETICIST 10:55 AM COMPUTATIONAL GENETICIST Isidro Arrington B.Ch. LAB HLA ORDERABLES Performing Organization Address City/State/[facility] Code Phon e Number [facility] - [address] [place] [phone] [facility] [address] [place] [address] Laboratories-[facility] 200 [facility] HLA Class I Typing by High Resolution, Donor Testing (08/31/2021 10:55 AM COMPUTATIONAL GENETICIST) [facility] Method Time Signature Class I HR [id number] 10/20/2021 [facility] Donor BETHEL MENDEZ 11:01 PM CDT A - 1 A11 Not 10/20/2021 [facility] Equivalent Applicable 11:01 PM CDT A - 2 A24 Not 10/20/2021 [facility] Equivalent Applicable 11:01 PM CDT A - 1 Allele A*11:01 Not 10/20/2021 [facility] Applicable 11:01 PM CDT A - 2 Allele A*24:02 Not 10/20/2021 [facility] Applicable 11:01 PM CDT B - 1 B35 Not 10/20/2021 [facility] Equivalent Applicable 11:01 PM CDT B - 2 B44 Not 10/20/2021 [facility] Equivalent Applicable 11:01 PM CDT B - 1 Allele B*35:01 Not 10/20/2021 [facility] Applicable 11:01 PM CDT B - 2 Allele B*44:02 Not 10/20/2021 [facility] Applicable 11:01 PM CDT Bw - 1 Bw6 Not 10/20/2021 [facility] Equivalent Applicable 11:01 PM CDT Bw - 2 Bw4 Not 10/20/2021 [facility] Equivalent Applicable 11:01 PM CDT C - 1 Cw4 Not 10/20/2021 [facility] Equivalent Applicable 11:01 PM CDT C - 2 Cw5 Not 10/20/2021 [facility] Equivalent Applicable 11:01 PM CDT C - 1 Allele C*04:01 Not 10/20/2021 [facility] Applicable 11:01 PM CDT C - 2 Allele C*05:01 Not 10/20/2021 [facility] Applicable 11:01 PM CDT A Unresolved see below 10/20/2021 [facility] Alleles 11:01 PM CDT Comment: A*11:295/A*11:303/A*11:324/A*11:328/A*11 :353 A*24:353/A*24:419/A*24:437/A*24:443/A*24 :448N/A*24:454/ A*24:466/A*24:469/A*24:496/A*24:02:01:02 L/A*24:02:01:17Q B Unresolved Alleles see below 10/20/2021 11:01 PM CDT D[facility] Comment: B*35:370/B*35:380 B*44:292/B*44:321/B*44:457/B*44:464/B*44 :470/B*44:477/ B*44:479/B*44:503/B*44:02:01:13Q C Unresolved Alleles see below 10/20/2021 11:01 PM CDT D[facility] Comment: C*04:120/C*04:309N /C*04:01:01:47Q/C*04:01:01:84Q/C*05:01:0 1:53Q Test Method PCR - Next Generation Sequencing 10/20 11:01 PM CDT D[facility] Test Method PCR - Next Generation Sequencing 10/20 11:01 PM CDT D[facility] Comment: ----ADDITIONAL INFORMATION---- Common, intermediate and well-documented (CIWD) HLA alleles are resolved or listed if not resolved. Listing of ambiguous rare alleles not resolved can be found i n the corresponding unresolved field. (Albert CK, Cesar J, Nolan K, et al. 2020; 1-16 [email or web address]://doi.org/10.1111/T [email or web address].78497). For convenience, when not defined in the WHO Nomenclature a laboratory defined serologic equivalent has been provided. This test was developed and its performa nce characteristics determined by [facility] in a manner co nsistent with CLIA requirements. This test has not been demetris ared or approved by the U.S. Food and Drug Administration. CLIA: [id number] ??CLIA Impact Retail Service Merchandiser: VALENTINA GOLD MD,PhD Specimen Anatomical Collection Method Collection Time Receive d Time (Source) Location / / Volume Laterality Blood 08/31/2021 10:55 08/31/2021 AM COMPUTATIONAL GENETICIST 10:55 AM COMPUTATIONAL GENETICIST Isidro Arrington, B.Ch. LAB HLA ORDERABLES Performing Organization Address City/State/ZIP Code Phon e Number [facility] - [address] [place] [phone] [facility] [address] [place] [address] Laboratories-[facility] 200 [facility] HLA Class II Typing by Low Resolution, Donor Testing (08/31/2021 10:55 AM COMPUTATIONAL GENETICIST) [facility] Method Time Signature Class II LR [id number] 09/19/2021 [facility] Donor BETHEL MENDEZ 8:43 AM COMPUTATIONAL GENETICIST DRB1 - 1 DR103 Not 09/19/2021 [facility] Equivalent Applicable 8:43 AM COMPUTATIONAL GENETICIST DRB1 - 2 DR12 Not 09/19/2021 [facility] Equivalent Applicable 8:43 AM COMPUTATIONAL GENETICIST DRB1 - 1 DRB1*01 Not 09/19/2021 [facility] Molecular Applicable 8:43 AM COMPUTATIONAL GENETICIST DRB1 - 2 DRB1*12 Not 09/19/2021 [facility] Molecular Applicable 8:43 AM COMPUTATIONAL GENETICIST [id number] - 1 DR52 Not 09/19/2021 [facility] Equivalent Applicable 8:43 AM COMPUTATIONAL GENETICIST QQK627 - 1 DRB3*02 Not 09/19/2021 [facility] Molecular Applicable 8:43 AM COMPUTATIONAL GENETICIST DQB1 - 1 DQ7 Not 09/19/2021 [facility] Equivalent Applicable 8:43 AM COMPUTATIONAL GENETICIST DQB1 - 2 DQ5 Not 09/19/2021 [facility] Equivalent Applicable 8:43 AM COMPUTATIONAL GENETICIST DQB1 - 1 DQB1*03 Not 09/19/2021 [facility] Molecular Applicable 8:43 AM COMPUTATIONAL GENETICIST DQB1 - 2 DQB1*05 Not 09/19/2021 [facility] Molecular Applicable 8:43 AM COMPUTATIONAL GENETICIST DQA1 - 1 DQA1*01 Not 09/19/2021 [facility] Molecular Applicable 8:43 AM COMPUTATIONAL GENETICIST DQA1 - 2 DQA1*05 Not 09/19/2021 [facility] Molecular Applicable 8:43 AM COMPUTATIONAL GENETICIST Test Method PCR - 09/03/2021 [facility] Reverse SSOP 4:56 PM COMPUTATIONAL GENETICIST Comment: ----ADDITIONAL INFORMATION---- Molecular HLA typing reported as serolog ical equivalents and low to medium resolution molecular value s. ??For convenience, when not defined in the WHO Nomenclature a laboratory defined serologic equivalent has been provided. CLIA: [id number] ??CLIA Impact Retail Service Merchandiser: VALENTINA GOLD MD,PhD Specimen Anatomical Collection Method Collection Time Receive d Time (Source) Location / / Volume Laterality Blood 08/31/2021 10:55 08/31/2021 AM COMPUTATIONAL GENETICIST 10:55 AM COMPUTATIONAL GENETICIST Isidro Arrington, B.Ch. LAB HLA ORDERABLES Performing Organization Address City/State/ZIP Code Phon e Number [facility] - [address] [place] [phone] [facility] [address] [place] [address] Laboratories-[address] HLA Class I Typing by Low Resolution, Donor Testing (08/31/2021 10:55 AM COMPUTATIONAL GENETICIST) [facility] Method Time Signature Class I LR [id number] 09/03/2021 [facility] Donor BETHEL MENDEZ 4:56 PM COMPUTATIONAL GENETICIST A - 1 A11 Not 09/03/2021 [facility] Equivalent Applicable 4:56 PM COMPUTATIONAL GENETICIST A - 2 A24 Not 09/03/2021 [facility] Equivalent Applicable 4:56 PM COMPUTATIONAL GENETICIST A - 1 A*11 Not 09/03/2021 [facility] Molecular Applicable 4:56 PM COMPUTATIONAL GENETICIST A - 2 A*24 Not 09/03/2021 [facility] Molecular Applicable 4:56 PM COMPUTATIONAL GENETICIST B - 1 B35 Not 09/03/2021 [facility] Equivalent Applicable 4:56 PM COMPUTATIONAL GENETICIST B - 2 B44 Not 09/03/2021 [facility] Equivalent Applicable 4:56 PM COMPUTATIONAL GENETICIST B - 1 B*35 Not 09/03/2021 [facility] Molecular Applicable 4:56 PM COMPUTATIONAL GENETICIST B - 2 B*44 Not 09/03/2021 [facility] Molecular Applicable 4:56 PM COMPUTATIONAL GENETICIST Bw - 1 Bw6 Not 09/03/2021 [facility] Equivalent Applicable 4:56 PM COMPUTATIONAL GENETICIST Bw - 2 Bw4 Not 09/03/2021 [facility] Equivalent Applicable 4:56 PM COMPUTATIONAL GENETICIST C - 1 Cw4 Not 09/03/2021 [facility] Equivalent Applicable 4:56 PM COMPUTATIONAL GENETICIST C - 2 Cw5 Not 09/03/2021 [facility] Equivalent Applicable 4:56 PM COMPUTATIONAL GENETICIST C - 1 C*04 Not 09/03/2021 [facility] Molecular Applicable 4:56 PM COMPUTATIONAL GENETICIST C - 2 C*05 Not 09/03/2021 [facility] Molecular Applicable 4:56 PM COMPUTATIONAL GENETICIST Test Method PCR - 09/03/2021 [facility] Reverse SSOP 4:56 PM COMPUTATIONAL GENETICIST Comment: ----ADDITIONAL INFORMATION---- Molecular HLA typing reported as serolog ical equivalents and low to medium resolution molecular value s. ??For convenience, when not defined in the WHO Nomenclature a laboratory defined serologic equivalent has been provided. CLIA: [id number] ??CLIA Impact Retail Service Merchandiser: VALENTINA GOLD MD,PhD Specimen Anatomical Collection Method Collection Time Receive d Time (Source) Location / / Volume Laterality Blood 08/31/2021 10:55 08/31/2021 AM COMPUTATIONAL GENETICIST 10:55 AM COMPUTATIONAL GENETICIST Isidro Arrington B.Ch. LAB HLA ORDERABLES Performing Organization Address City/State/ZIP Code Phon e Number [facility] - [address] [place], [place] [address] [facility] [address] [place] [address] Laboratories-[facility] [address] (ABNORMAL) Morphology Evaluation (Special Smear) (07/23/2021 10:44 AM COMPUTATIONAL GENETICIST) Patholo gist Method Time Signature Neutrophilic Segs 79 (H) 50 - 75 % 07/23/2021 DHPM and Bands 12:26 PM COMPUTATIONAL GENETICIST Lymphocytes 8 (L) 18 - 42 % 07/23/2021 DHPM 12:26 PM COMPUTATIONAL GENETICIST Monocytes 2 2 - 11 % 07/23/2021 DHPM 12:26 PM COMPUTATIONAL GENETICIST Eosinophils 1 1 - 3 % 07/23/2021 PM 12:26 PM COMPUTATIONAL GENETICIST Basophils 6 (H) 0 - 2 % 07/23/2021 PM 12:26 PM COMPUTATIONAL GENETICIST Metamyelocytes 1 (H) <1 % 07/23/2021 PM 12:26 PM COMPUTATIONAL GENETICIST Myelocytes 2 (H) <0.5 % 07/23/2021 PM 12:26 PM COMPUTATIONAL GENETICIST Blasts 1 (H) <1 % 07/23/2021 PM 12:26 PM COMPUTATIONAL GENETICIST Nucleated RBC 1 /100 WBC 07/23/2021 PM 12:26 PM COMPUTATIONAL GENETICIST Manual Absolute 2.77 1.56 - 07/23/2021 [facility] Neutrophil Count 6.45 12:26 PM COMPUTATIONAL GENETICIST x10(9)/L Comment: ----ADDITIONAL INFORMATION---- The manual absolute neutrophil count is derived from a manual differential count and therefore is not exactly comparable to the automated absolute halie trophil count. Specimen Anatomical Collection Method Collection Time Receive d Time (Source) Location / / Volume Laterality Blood 07/23/2021 10:44 07/23/2021 AM COMPUTATIONAL GENETICIST 11:18 AM COMPUTATIONAL GENETICIST Janusz Ardon LAB BLOOD ADD-ON Performing Organization Address City/State/ZIP Code Phon e Number [facility] - [address] [place] [address] [place] [address] [facility] 200 [facility] (ABNORMAL) CBC with Differential, Blood (07/23/2021 10:44 AM COMPUTATIONAL GENETICIST) [facility] Method Time Signature Hemoglobin 6.6 (L) 11.6 - 07/23/2021 DTL 15.0 g/dL 11:28 AM COMPUTATIONAL GENETICIST Hematocrit 21.6 (L) 35.5 - 07/23/2021 DTL 44.9 % 11:28 AM COMPUTATIONAL GENETICIST Erythrocytes 2.43 (L) 3.92 - 07/23/2021 DTL 5.13 11:28 AM COMPUTATIONAL GENETICIST x10(12)/L MCV 88.9 78.2 - 07/23/2021 DTL 97.9 fL 11:28 AM COMPUTATIONAL GENETICIST RBC Distrib Width 26.3 (H) 12.2 - 07/23/2021 DTL 16.1 % 11:28 AM COMPUTATIONAL GENETICIST Platelet Count 90 (L) 157 - 371 07/23/2021 DTL x10(9)/L 11:28 AM COMPUTATIONAL GENETICIST Leukocytes 3.5 3.4 - 9.6 07/23/2021 DTL x10(9)/L 12:25 PM COMPUTATIONAL GENETICIST Comment: Results confirmed by smear. Neutrophils SeeComment 1.56 - 6.45 x10(9)/L 07/23/2021 12:25 PM COMPUTATIONAL GENETICIST DTL Comment: Auto-diff results not valid. Se e manual differential. Specimen Anatomical Collection Method Collection Time Receive d Time (Source) Location / / Volume Laterality Blood (Blood, 07/23/2021 10:44 07/23/2021 Venous) AM COMPUTATIONAL GENETICIST 11:18 AM COMPUTATIONAL GENETICIST Janusz Ardon LAB BLOOD ADD-ON Performing Organization Address City/State/ZIP Code Phon e Number [facility] - [address] [place], [place] [address] [facility] [place] [address] [facility] [address] documented in this encounter Visit Diagnoses Diagnosis Myelofibrosis Primary (HCC) documented in this encounter Care Teams Pharmacy Director Relationship Specialty Start Date End Date None Reported, Pcp PCP - General Family Medicine 02/16/21 documented as of this encounter
--- OUTSIDE RECORDS SUMMARY | 2022-05-02 12:05 | XMS_ITS | Encounter Summary ---
:1970 Author Organization [facility] Address [address] [place] [address] Care Team Providers Name Role Phone None Reported, Pcp Primary Care Provider Unavailable Encounter Details Date Type Department Care Team Description 08/24/2021 Orders Only Department of Oncology in Pietro De Luna M.D. 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
--- OUTSIDE RECORDS SUMMARY | 2022-05-02 12:05 | XMS_ITS | Encounter Summary ---
:1970 Author Organization [facility] Address [address] [place] [address] Care Team Providers Name Role Phone None Reported, Pcp Primary Care Provider Unavailable Reason for Visit Reason Comments Med Refill Encounter Details Date Type Department Care Team Description 08/13/2021 Refill Department of Oncology in [facility] , Med Refill [place], [place] M.B.B.S. 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 ED TUBING SUPERVISOR documented in 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 Care Teams Drilling Rig Operator Relationship Specialty Start Date End Date None Reported, Pcp PCP - General Family Medicine 02/16/21 documented as of this encounter
--- OUTSIDE RECORDS SUMMARY | 2022-05-02 12:05 | XMS_ITS | Encounter Summary ---
:1970 Author Organization [facility] Address [address] [place] [address] Care Team Providers Name Role Phone None Reported, Pcp Primary Care Provider Unavailable Reason for Referral Outpatient (Routine) - Authorized Specialty Diagnoses / Procedures Referred By Contact Refer red To Contact Hematology [facility], B.Ch. [address] [place] [phone] Referral ID Status Reason Start Date Expiration Date Visits V isits Requested Authorized [id number] Authorized 07/23/2021 07/23/2022 1 1 Scheduling Instructions Please coordinate with return visit to mitch Govea in approximately 2 months please. Thank you BURNER Encounter Details Date Type Department Care Team Description 07/23/2021 Orders Only Division of Hematology in Isidro Zamarripa [place]B.[place], [place] B.Ch. 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
--- OUTSIDE RECORDS SUMMARY | 2022-05-02 12:05 | XMS_ITS | Encounter Summary ---
:1970 Author Organization [facility] Address [address] [place] [address] Care Team Providers Name Role Phone None Reported, Pcp Primary Care Provider Unavailable Encounter Details Date Type Department Care Team Description 08/10/2021 Clinical Communication Division of Hematology Dinorah Morales, in [facility] potato chip packaging machine operator M.B.B.S. 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
--- OUTSIDE RECORDS SUMMARY | 2022-05-02 12:05 | XMS_ITS | Encounter Summary ---
:[address] [facility] Address [address] [place] [address] Care Team Providers Name Role Phone None Reported, Pcp Primary Care Provider Unavailable Encounter Details Date Type Department Care Team Description 07/23/2021 Infusion Department of Infusion Janusz Govea P ancytopenia (HCC) (Primary Dx); Therapy in [facility] Myelofibrosis (HCC) [address] [place] [address] [phone] Social History Tobacco Use Types Packs/Day Years [...] at Date Recorded Female 07/24/2021 11:03 AM CARDIAC CATHETERIZATION 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 documented as of this encounter Plan of Treatment Pending Results Name Type Priority Associated Diagnoses Date/Ti me Prepare Red Blood Blood Bank Routine Pancytopenia ( HCC) 07/23/2021 10:44 AM Cells, 1 Units Myelofibrosis (HCC) CARDIAC CATHETERIZATION 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 documented as of this encounter Procedures Procedure Name Priority Date/Time Associated Diagnosis Comme nts PREPARE RED BLOOD Routine 07/23/2021 10:44 AM Pancytopen ia (HCC) CELLS CARDIAC CATHETERIZATION 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 Myelofibrosis (HCC) documented in this encounter Visit Diagnoses Diagnosis Pancytopenia (HCC) - Primary Myelofibrosis (HCC) documented in this encounter Care Teams Hob Mill Operator Relationship Specialty Start Date End Date None Reported, Pcp PCP - General Family Medicine 02/16/21 documented as of this encounter
--- OUTSIDE RECORDS SUMMARY | 2022-05-02 12:05 | XMS_ITS | Encounter Summary ---
:1970 Author Organization [facility] Address [address] [place] [address] Care Team Providers Name Role Phone None Reported, Pcp Primary Care Provider Unavailable Encounter Details Date Type Department Care Team Description 10/24/2021 Hospital Encounter Department of Gangat, Myelofib rosis Primary Laboratory Medicine [facility], ([facility]) and Pathology, M.B.B.[address] [address] [place], [place] [phone] (Work) [phone] Social History Tobacco Use Types Packs/Day Years [...] at Date Recorded Female 07/24/2021 11:03 AM 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 Research IRB [id number] Take by mouth. Pt 0 03/11/2022 alisertib ([id number]) 10 is unsure of what mg DR [...] Associated Diagnosis Comme nts SPSMA RESULT Routine 10/24/2021 9:42 Myelofibrosis Primary Res ults for this AM CDT (HCC) procedure are i n the results section. HLA CLASS II SAB Routine 10/24/2021 9:42 Myelofibrosis Primary Results for this ANTIBODY SCREEN AM CDT (HCC) procedure ar e in the results section. HLA CLASS I SAB Routine 10/24/2021 9:42 Myelofibrosis Primary Results for this ANTIBODY SCREEN AM CDT (HCC) procedure ar e in the results section. CBC WITH Routine 10/24/2021 9:42 Myelofibrosis Primary Res ults for this DIFFERENTIAL, B AM CDT (HCC) procedure ar e in the results section. LACTATE DEHYDROGENASE Routine 10/24/2021 9:42 Myelofibrosis Pr imary Results for this (LD), S AM CDT (HCC) procedure are i n the results section. COMPREHENSIVE Routine 10/24/2021 9:42 Myelofibrosis Primary Re sults for this METABOLIC PANEL, S/P AM CDT (HCC) procedu re are in the results section. documented in this encounter Results HLA Class II SAB Antibody Screen (10/24/2021 9:42 AM CDT) [facility] Method Time Signature Class II SAB Positive Not Applicable 10/26/2021 DBB8 Overall 7:41 AM CDT Result Class II SAB 48 10/26/2021 DBB8 cPRA 7:41 AM CDT Comment: ----ADDITIONAL INFORMATION---- cPRA is calculated for either HLA class I or II (except DPB1) antibodies with a normalized MFI >2000 u sing published UNOS frequencies (http://optn.transplant.hrsa .gov). ??For convenience, all HLA antibodies with a normalized MFI >500 are listed in the specificity patton. SAB DRB1 Specificity see below 10/26/2021 7:41 AM CDT DBB8 Comment: 7(07:01)[8268], 4(04:04)[1830], 4(04:02) [393] Format: Serologic Eq.(DRB1 Mol. Allele)[ Normalized MFI] NOTE: Data is displayed in descending or kesha by Mean Fluorescence Intensity (MFI). ??Serologic equivalents can be di splayed multiple times for different molecular alleles. SAB [id number] Specificity NONE 10/26/2021 7:41 A M CDT DBB8 SAB DQB1 Specificity see below 10/26/2021 7:41 AM CDT DBB8 Comment: 8(A*03:01;B*03:02)[1996], 8(A*02:01;B*03 :02)[1153], 2(A*02:01;B*02:02)[537] Format: Serologic Eq.(DQA1;DQB1 Mol. All char)[Normalized MFI] NOTE: Data is displayed in descending or kesha by Mean Fluorescence Intensity (MFI). ??Serologic equivalents can be di splayed multiple times for different molecular alleles. SAB DPB1 Specificity see below 10/26/2021 7:41 AM CDT DBB8 Comment: 14(A*02:01;B*14:01)[4135], 10(A*02:02;B* 10:01)[3043], 3(A*02:01;B*03:01)[1311], 9(A*02:01;B*09 :01)[1216], 5(A*02:02;B*05:01)[786], 17(A*02:01;B*17 :01)[781], 1(A*02:01;B*01:01)[563] Format: Serologic Eq.(DPA1;DPB1 Mol. All char)[Normalized MFI] NOTE: Data is displayed in descending or kesha by Mean Fluorescence Intensity (MFI). ??Serologic equivalents can be di splayed multiple times for different molecular alleles. ----ADDITIONAL INFORMATION---- Method: Luminex Flow Cytometry CLIA: [id number] ??CLIA Junior Underwriter: VALENTINA GOLD MD,PhD Specimen Anatomical Collection Method Collection Time Receive d Time (Source) Location / / Volume Laterality Blood (Blood, 10/24/2021 9:42 AM 10/25/19 22 Venous) CDT 11:00 AM CDT Dinorah Ardon LAB HLA ORDERABLES Performing Organization Address City/State/ZIP Code Phon e Number [facility] - [address] [place], [place] [address] [facility] DBB[address] [place] [address] Laboratories-[facility] [address] [facility] HLA Class I SAB Antibody Screen (10/24/2021 9:42 AM CDT) [facility] Method Time Signature Class I SAB Positive Not Applicable 10/26/2021 DBB8 Overall 7:27 AM CDT Result Class I SAB 0 10/26/2021 DBB8 cPRA 7:27 AM CDT Comment: ----ADDITIONAL INFORMATION---- cPRA is calculated for either HLA class I or II (except DPB1) antibodies with a normalized MFI >2000 u sing published UNOS frequencies (http://optn.transplant.hrsa .gov). ??For convenience, all HLA antibodies with a normalized MFI >500 are listed in the specificity patton. SAB A Specificity NONE 10/26/2021 7:27 AM CDT DBB8 SAB B Specificity see below 10/26/2021 7:27 AM CDT DBB8 Comment: 38(38:01)[848] Format: Serologic Eq.(B Mol. Allele)[Nor malized MFI] NOTE: Data is displayed in descending or kesha by Mean Fluorescence Intensity (MFI). ??Serologic equivalents can be di splayed multiple times for different molecular alleles. SAB C Specificity NONE 10/26/2021 7:27 AM CDT DBB8 Comment: ----ADDITIONAL INFORMATION---- Method: Luminex Flow Cytometry CLIA: [id number] ??CLIA Junior Underwriter: VALENTINA GOLD MD,PhD Specimen Anatomical Collection Method Collection Time Receive d Time (Source) Location / / Volume Laterality Blood (Blood, 10/24/2021 9:42 AM 10/25/19 22 Venous) CDT 11:00 AM CDT Dinorah Ardon LAB HLA ORDERABLES Performing Organization Address City/State/ZIP Code Phon e Number [facility] - [address] [place], [place] [address] [facility] [address]BB[address] [place] [address] [facility] [address] [facility] (ABNORMAL) LD (Lactate Dehydrogenase) (10/24/2021 9:42 AM CDT) [facility] Method Time Signature Lactate 641 (H) 122 - 222 10/24/2021 DTL Dehydrogenase U/L 10:55 AM CDT (LD), S Specimen Anatomical Collection Method Collection Time Receive d Time (Source) Location / / Volume Laterality Blood (Blood, 10/24/2021 9:42 AM 10/25/19 22 Venous) CDT 10:34 AM CDT Janusz Ardon LAB BLOOD NON ADD-ON Performing Organization Address City/State/ZIP Code Phon e Number [facility] - [address] [place], [place] [address] [facility] [place] [address] [facility] [address] [facility] (ABNORMAL) Comprehensive Metabolic Panel (10/24/2021 9:42 AM CDT) Analysis Performed At Patho logist Time Signature Potassium, S 5.0 3.6 - 5.2 10/24/2021 DTL mmol/L 10:56 AM CDT Sodium, S 142 135 - 145 10/24/2021 DTL mmol/L 10:56 AM CDT Chloride, S 102 98 - 107 10/24/2021 DTL mmol/L 10:56 AM CDT Bicarbonate, S 29 22 - 29 10/24/2021 DTL mmol/L 10:56 AM CDT Anion Gap 11 7 - 15 10/24/2021 DTL 10:56 AM CDT BUN (Blood Urea 32 (H) 6 - 21 10/24/2021 DTL Nitrogen), S mg/dL 10:56 AM CDT Creatinine 1.44 (H) 0.59 - 10/24/2021 DTL 1.04 mg/dL 10:56 AM CDT eGFR-Non 41 (L) >=60 10/24/2021 DTL Black/ mL/min/BSA 10:56 AM CDT Lebanese Comment: ----ADDITIONAL INFORMATION---- Estimated GFR calculated using the 2009 CKD_EPI creatinine equation. eGFR-Black/ 48 (L) >=60 mL/min/BSA 2021 10:56 AM CDT DTL Comment: ----ADDITIONAL INFORMATION---- Estimated GFR calculated using the 2009 CKD_EPI creatinine equation. Calcium, Total, S 8.8 8.6 - 10.0 mg/dL 10/24/2021 10:5 6 AM CDT DTL Glucose, S 101 70 - 140 mg/dL 10/24/2021 10:56 AM CDT DTL Protein, Total, S 6.3 6.3 - 7.9 g/dL 10/24/2021 10:56 AM CDT DTL Albumin, S 4.7 3.5 - 5.0 g/dL 10/24/2021 10:56 AM CDT DTL Aspartate Aminotransferase 24 8 - 43 U/L 10/24/2021 1 0:56 AM CDT DTL (AST), S Alkaline Phosphatase, S 45 35 - 104 U/L 10/24/2021 10 :56 AM CDT DTL Alanine Aminotransferase (ALT), 7 7 - 45 U/L 022 10:56 AM CDT DTL S Bilirubin, Total, S 0.8 <=1.2 mg/dL 10/24/2021 10:56 A M CDT DTL Specimen Anatomical Collection Method Collection Time Receive d Time (Source) Location / / Volume Laterality Blood (Blood, 10/24/2021 9:42 AM 10/25/19 22 Venous) CDT 10:35 AM CDT Janusz Ardon LAB BLOOD ADD-ON Performing Organization Address City/State/ZIP Code Phon e Number [facility] - [address] [place] [address] [facility] [place] [address] [facility] 200 [facility] (ABNORMAL) Morphology Evaluation (Special Smear) (10/24/2021 9:42 AM CDT) Analysis Performed At Patho logist Time Signature Neutrophilic Segs 75 50 - 75 % 10/24/2021 DHPM and Bands 11:53 AM CDT Lymphocytes 15 (L) 18 - 42 % 10/24/2021 DHPM 11:53 AM CDT Monocytes 1 (L) 2 - 11 % 10/24/2021 [facility]PM 11:53 AM CDT Eosinophils 1 1 - 3 % 10/24/2021 [facility]PM 11:53 AM CDT Basophils 1 0 - 2 % 10/24/2021 [facility]PM 11:53 AM CDT Myelocytes 7 (H) <0.5 % 10/24/2021 [facility] 11:53 AM CDT Nucleated RBC 6 /100 WBC 10/24/2021 [facility] 11:53 AM CDT Manual Absolute 3.08 1.56 - 10/24/2021 [facility] Neutrophil Count 6.45 11:53 AM CDT x10(9)/L Comment: ----ADDITIONAL INFORMATION---- The manual absolute neutrophil count is derived from a manual differential count and therefore is not exactly comparable to the automated absolute halie trophil count. Interpretation Moderate dacrocytes are present. 11:53 AM CDT [facility] Reviewed by: Liz 10/24/2021 11:53 AM CDT [facility] Specimen Anatomical Collection Method Collection Time Receive d Time (Source) Location / / Volume Laterality Blood (Blood, 10/24/2021 9:42 AM 10/25/19 22 Venous) CDT 10:09 AM CDT Janusz Ardon LAB BLOOD ADD-ON Performing Organization Address City/State/ZIP Code Phon e Number [facility] - [address] [place] [address] [place] [address] [facility] [address] [facility] (ABNORMAL) CBC with Differential, Blood (10/24/2021 9:42 AM CDT) [facility] Method Time Signature Hemoglobin 6.8 (L) 11.6 - 10/24/2021 DTL 15.0 g/dL 10:21 AM CDT Hematocrit 22.9 (L) 35.5 - 10/24/2021 DTL 44.9 % 10:21 AM CDT Erythrocytes 2.58 (L) 3.92 - 10/24/2021 DTL 5.13 10:21 AM CDT x10(12)/L MCV 88.8 78.2 - 10/24/2021 DTL 97.9 fL 10:21 AM CDT RBC Distrib 27.1 (H) 12.2 - 10/24/2021 DTL Width 16.1 % 10:21 AM CDT Platelet Count 84 (L) 157 - 371 10/24/2021 [facility] x10(9)/L 10:57 AM CDT Leukocytes 4.1 3.4 - 9.6 10/24/2021 DTL x10(9)/L 11:53 AM CDT Neutrophils SeeComment 1.56 - 10/24/2021 DTL 6.45 11:53 AM CDT x10(9)/L Comment: Auto-diff results not valid. Se e manual differential. Specimen Anatomical Collection Method Collection Time Receive d Time (Source) Location / / Volume Laterality Blood (Blood, 10/24/2021 9:42 AM 10/25/19 22 Venous) CDT 10:09 AM CDT Janusz Ardon LAB BLOOD ADD-ON Performing Organization Address City/State/ZIP Code Phon e Number [facility] - [address] [place], [place] [address] [facility] [place] [address] [facility] [address] [place] [address] [facility] [address] documented in this encounter Visit Diagnoses Diagnosis Myelofibrosis Primary (HCC) documented in this encounter Care Teams Mercerizing Range Feeder Relationship Specialty Start Date End Date None Reported, Pcp PCP - General Family Medicine 02/16/21 documented as of this encounter
--- OUTSIDE RECORDS SUMMARY | 2022-05-02 12:05 | XMS_ITS | Encounter Summary ---
:1970 Author Organization [facility] Address [address] [place] [address] Care Team Providers Name Role Phone None Reported, Pcp Primary Care Provider Unavailable Reason for Referral Outpatient (Routine) - Closed Specialty Diagnoses / Referred By Contact Referred To Contact Procedures Cardiovascular Diseases / Diagnoses Hypertension Pulmonary (HCC) [facility] M.AundreaB.S. 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 Internal/external: Internal ?? Goal or summary: pulm hypertension, totration of diuretics ?? Requested date: First available ?? Additional comments: call [phone] Keyonna Patient Appointment Services Specialist Division of Cardiovascular Diseases [address] [address] [email or web address] P RST CVD [facility] SCHEDULING ITS MODEL documented in this encounter Plan of Treatment Scheduled Referrals Name Type Priority Associated Diagnoses Order S [facility] Cardiovascular Disease Outpatient Routine Hypertension Expec latonya: - Pulmonary Referral Pulmonary (HCC) 09/12/2021 hypertension consult (Approx imate), (clinic) Expires: 12/13/2022 documented as of this encounter Visit Diagnoses Diagnosis Hypertension Pulmonary (HCC) - Primary documented in this encounter Care Teams Cupola Melter Helper Relationship Specialty Start Date End Date None Reported, Pcp PCP - General Family Medicine 02/16/21 documented as of this encounter
--- OUTSIDE RECORDS SUMMARY | 2022-05-02 12:05 | XMS_ITS | Encounter Summary ---
:1970 [facility] Address [address] [place] [id number] Care Team Providers Name Role Phone None Reported, Pcp Primary Care Provider Unavailable Reason for Referral Transplant (Routine) - Authorized Specialty Diagnoses / Procedures Referred By Contact Refer red To Contact Transplant Surgery / [facility] Transplant [address] [place] [phone] Referral ID Status Reason Start Date Expiration Date Visits V isits Requested Authorized [id number] Authorized 07/24/2021 07/24/2022 1 1 Scheduling Instructions Please schedule 30 minute visit with BMT outreach and education social worker (Josselyn chaudhry) when/if patient returns for BMT evaluation. 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 [facility] [address] [place] [phone] Referral ID Status Reason Start Date Expiration Date Visits V isits Requested Authorized [id number] Pending 05/31/2021 05/31/2022 1 1 Review Encounter Details Date Type Department Care Team Description 07/24/2021 Clinical Support Sasha Gorman M.B.B.S. [address] [place] [phone] Myelofibrosis Center for Josselyn Howard L.I.C.S.W., M.S.W. 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 - 07/24/2021 11:00 AM CST Transplant Psychosocial Assessment DEMOGRAPHIC INFORMATION SUBJECTIVE Referral Source: Dr. Zamarripa Patient seen for pre-BMT psychosocial assessment. Persons present: Patient and her , Gian Previous Psychosocial Assessment : No Patient's primary care clinic/primary care provider: Dr. Diaz, [facility] Primary language: Uzbek For this interview, the patient utilized language services: N/A Citizenship [place] Citizen Ethnicity/Race: White Descent Disclaimer: ?? The patient and family were advised regarding the various topics to be interviewed during this evaluation. The patient consented to proceed in the presence of those present for the evaluation. ?? The information provided in the assessment is based on review of the medical record as well as interview with the patient and family. ?? The patient and family were advised that the content of this interview will be shared with the health care team. It was discussed with the patient that staff are mandated reporters and they reportedunderstanding. ?? The role of the Transplant Supervisor Cigar Processing was explained. Where was the interview: Outpatient PAST MEDICAL AND SURGICAL HISTORY Patient stated she was diagnosed with myelofibrosis about 7 years ago. She stated she needs to find a donor match, get my health straightened out, and may need further treatment before proceeding with an allogeneic stem cell transplant. Please see medical record for complete medical information. TRANSPLANT RISK/UNDERSTANDING/MOTIVATION Patient was educated on the following: length/course of hospitalization and relocation Risks of transplant as stated by patient: patient stated she talked about this with Dr. Zamarripa and it's almost 50/50 What is the patient's motivation for transplant? Patient stated she is still deciding if she wants to proceed with transplant given risks. Does the patient have any concerns about the transplant? She reports she finds potential risks or side effects of transplant to be scary. Transplant Social Work assessment is that the patient asked appropriate/meaningful questions and hasreasonable level of understanding. Compliance: Patient verbalized understanding of what her current medications are for and when to take them; she stated her helps manage her medications. Patient denied difficulty accessing or taking medications. Patient denied concerns with affording current medications. SOCIAL HISTORY Family of origin: Patient stated she has a sister who is 20 years older than her and lives in [place]; she reports she is supportive and has driven her around to appointments. Patient stated her parents have . She report she has some other family members who are not supportive. Marital Status / Family / Household: Patient lives with her , Gian, in their apartment in [place], [place]. She endorsed a supportive relationship with him. She has no children. Pets: Cat Terry Education/Employment Highest level of education: High School (9-12) or GED; 11th grade Literacy: Patient is literate Work history: Patient stated she has been on SSDI for about 4-6 months. Patient's plan for extended time off for recovery: Disability Spiritual Practices/Evangelical/Culture Spirituality / Evangelical / Culture: Patient stated she believes in Jose Arpan and is very spiritual. History No background Legal History Patient denies current legal issues SOCIAL AND PERSONAL SUPPORT SYSTEMS Psychosocial risk factors impacting the patient: chemical dependency and mental health Abuse, Neglect, Maltreatment, Trauma: Current: patient reports none Past: patient stated, my childhood was traumatic, and stated, I try to live in the moment though. She reports no current concerns regarding this. Support systems: Her , sister ENVIRONMENTAL SUPPORTS Patient's home environment: apartment - second floor Anticipated modifications to the patient's home environment: None BASELINE FUNCTIONAL STATUS (ADLs and IADLs) Functional Status: Minimum assistance Dressing: needs assistance - primarily with bending over to put clothes on Bathing: independent Toileting: independent Mobility: modified independent Meal Prep: needs assistance Medication Setup/Administration: needs assistance Housekeeping: needs assistance ASSISTIVE DEVICES Patient has the following equipment: none Transportation needs: support from family/friends BASELINE SERVICES/RESOURCES Services: None TRANSPLANT PLAN Caregivers: Primary caregiver Name: Gian Relationship to patient: spouse/SO Can they read: yes Can they write: yes Can they drive: yes Do they have a reliable vehicle: yes Does the caregiver have other responsibilities: No, he is not working Health of the caregiver: Good Patient shared that Gian currently helps manage her appointments and medications and helps her around the house with cooking and cleaning. Secondary caregiver Name: Clemencia Dobsb Relationship to patient: sister Can they read: yes Can they write: yes Can they drive: yes Do they have a reliable vehicle: yes Does the caregiver have other responsibilities: No, she is not working Health of the caregiver: Good; she is pre-diabetic but this is managed now. Patient stated that her nieces and nephews would likely be able to act as emergency caregivers if needed. The patient/caregiver was educated on the following needs: to participate in all of the teachings preparing for care after transplant, provision of 24/7 care after transplant and transportation of patient to/from daily appointments. Patient/caregiver also educated about importance of having back-up caregiving plan in place. Ongoing education will be provided throughout the transplant continuum. Caregiver plan is finalized. Relocation Plan: Reviewed that patient will need to be in [place] for about 12 weeks at the time of transplant. Provided information about [facility] and the [employer] as a resource for additional lodging information. FINANCES/INSURANCE Primary insurance: MEDICARE A AND B Secondary/supplemental insurance: UCARE Does patient have lodging/travel benefit for transplant? Patient is not sure if they have a lodging and/or travel benefit and plan to speak with their insurance to find out more. Household Information Number of persons in household: 2 Type of housing: Rent Source of household income: SSDI, rental assistance Financial Assessment: Patient stated that with the financial assistance they currently receive, theyare able to manage their household bills. Patient expressed concerns with affording lodging if theirinsurance does not cover it. I encouraged them to contact [facility] through [facility] given patient stated her [employer] is Medicaid in order to determine if they have lodging coverage. Pharmacy Pharmacy coverage: [employer] Pharmacy benefits education: Patient was educated and advised to determine the projected range of out of pocket expenses for post-transplant medications, depending on the type of pharmacy coverage provided by insurance, and notify the outreach and education social worker regarding affordability. ADVANCE DIRECTIVES/LEGAL STATUS Advance Directives: Not Received janitorial maintenance worker provided education on the benefits of completing an advance directive and provided them with a copy of Advance Health Care Planning: Making Your Wishes Known?? [id number] bookletand explained to provide [facility] a copy of the completed advanced directive to include in their medical record should they wish. OBJECTIVE MENTAL HEALTH Psychosocial Risks - The Supervisor Cigar Processing advised the patient of the psychosocial risks of having a transplant including depression, anxiety, PTSD, guilt, dependence on a caregiver and financial stressors. Mental Health History: Patient stated her mood has been, great, excellent, lately. She reports that she has always been, a worrier and analytical. She reports that with medical improvement lately and lifting of financial stress, her mood has improved lately. Patient reports no history of mental health diagnoses. Per patient's EMR, she has a history of anxiety. Patient stated she has been prescribed lorazepam for about 2 years and takes it about 1-2 times per week. Per note by Dr. Govea dated 05/15/2016, patient was prescribed lorazepam at that time. Patient reports never having any psychiatric hospitalizations and reports never seeing a mental health practitioner. Patient reports no past or present suicidal ideation or attempts. Family Mental Health history: sister - alcohol use disorder history. Patient stated her sister has attended AA. Current psychological symptoms: Appearance: well-groomed and relaxed Behavior observed: calm, pleasant and interactive Level of consciousness: alert and oriented Memory, recent and remote: intact Cooperation: cooperative and forthcoming Attention/Concentration: intact Mood: euthymic Affect: mood-congruent Speech: speech is within normal limits for volume, rate, and tone Thought process: thought process intact Thought content: no abnormality Judgment: intact Suicide Risk and Safety Risk Assessment: Suicidal: no Homicidal: no Coping abilities and strategies: Current stressors: her health Coping - patient reports these personal coping mechanisms: Time with pets and having information to feel prepared Patient's ability to cope with emotional impact of transplant: Patient does appear to be able to adjust to the emotional impact of transplant. Other Mental Health Assessments PHQ 8 Score: 8 DUTCH 7 Score: 7 Audit-C: 1 Audit: 1 SUBSTANCE USE Tobacco: Patient stated she quit smoking in 2012; she reports she smoked for about 26 years. Alcohol: Patient stated she will have a drink about once per month. Other Substances: Patient reports she smokes marijuana daily for the past 40 years. She reports it helps her relax in order to sleep and dulls her pains. Patient stated she is willing to quit for transplant and talk with transplant psychiatry about resources for quitting and alternatives to marijuana. Patient stated she is prescribed morphine 2x/day and takes it once per day. Patient stated she is prescribed oxycodone and in the past month has taken it about 3 times. ASSESSMENT / PLAN ASSESSMENT Patient presented for a psychosocial assessment as part of an evaluation for an allogeneic stem celltransplant. Patient and her were engaged in the visit and open to learning more about transplant; patient is still thoughtfully considering if she plans on proceeding with transplant given health and further treatment outcomes. Given patient's marijuana use history, it would be beneficial for her to meet with Transplant Addictions Psychiatry for further support with quitting and remaining abstinent throughout transplant process. Patient reports no current significant mood concerns; she stated she is taking lorazepam as needed, about 1-2 times per week and per EMR she has a history of anxiety. Capability of the following complex medical regimen/treatment: The patient appears capable of following a complex medical regimen/treatment with the support of her , who currently assists with managing her medications and appointments. Financial: There are concerns regarding the patient's ability to manage out of pocket costs regarding Lodging. Patient plans on reaching out to her [facility] regarding lodging coverage for transplant. Caregiver plan: Caregiver plan is in place, see above for specifics. SIPAT: Score: 37 INTERVENTIONS - Completed comprehensive transplant Social Work assessment. - Psychoeducation provided on preparing for transplant. - We reviewed preparations for transplant including, lodging options, caregiving role and requirements, compliance, and financial considerations. - janitorial maintenance worker provided supportive counseling regarding the experience of living with a life-threatening illness and the feelings patient has surrounding stem cell transplant. Items reviewed: Social Work folder was reviewed. The following educational materials were provided. - How to Choose a Caregiver: For People Receiving Cellular Therapy ([id number]) - Preparing for Transplant: Body, Mind, and Spirit ([id number]) - [employer] Navigator Notes ([id number]) - [facility] brochure ([id number]) - [facility]'s [facility] to [facility] ([id number]) - Information for Caregivers: Taking Care of Yourself ([id number]) - Coping with Your Loss and Grief ([id number]) - Advance Health Care Planning: Making Your Wishes Known ( [id number]) booklet. PLAN - janitorial maintenance worker's business card provided. Contact encouraged as questions or needs arise. -Social Work will remain available to provide further assessment and supportive intervention throughout the evaluation, transplant and recovery process. -Social Work will also be available to assist the patient and family with adjustment issues and community and financial resources. - Patient to follow up with their insurance regarding coverage for lodging, meals, and/or transportation. - Patient to meet with Transplant Addiction Psychiatry for further assessment and support regarding marijuana quitting for transplant. - Should patient proceed with BMT, it would be beneficial for patient to meet with social work for further assessment of mood/coping and transplant plan. I will order this. Face to face time (for billing purposes) 60 minutes total time 60 minutes spent in counseling with patient and patient's family Swathi Martins, M.S.W. 07/24/2021 FIDEL Race/Ethnicity: White Descent Citizenship: [place] Citizen Highest Level of Education: High School (9-12) or GED Working Status/Reason If Not Working: disability Insurance: Primary insurance: MEDICARE A AND B Secondary insurance/Supplemental: UCARE SHOP MECHANIC documented in this encounter Plan of Treatment Scheduled Referrals Name Type Priority Associated Order Schedule Diagnoses Transplant Bone Outpatient Referral Routine Expec latonya: marrow office visit 07/11/20 22 (clinic) (Approximate), Expires: 10/22/2022 documented as of this encounter Visit Diagnoses Diagnosis Myelofibrosis Primary (HCC) - Primary documented in this encounter Care Teams Avionics Installer Relationship Specialty Start Date End Date None Reported, Pcp PCP - General Family Medicine 02/16/21 documented as of this encounter
--- OUTSIDE RECORDS SUMMARY | 2022-05-02 12:05 | XMS_ITS | Encounter Summary ---
:1970 Author Organization [facility] Address [address] [place] [address] Care Team Providers Name Role Phone None Reported, Pcp Primary Care Provider Unavailable Reason for Referral Outpatient (Routine) - Closed Specialty Diagnoses / Procedures Referred By Contact Refer red To Contact Diagnoses Myelofibrosis Primary (HCC) Janusz Govea M.B.BZahraaSZahraa [facility] Procedures US Spleen US Abdomen Limited [address] [place] [phone] Referral ID Status Reason Start Date Expiration Date Visits Requ ested Visits Authorized [id number] Closed 07/23/2021 07/23/2022 1 1 MICS AX TECHNICAL ARCHITECT Outpatient (Routine) - Closed Specialty Diagnoses / Procedures Referred By Contact Refer red To Contact Hematology Oncology Janusz Govea [place] [facility] M.B.B.S. [address] [place] [phone] Referral ID Status Reason Start Date Expiration Date Visits Requ ested Visits Authorized [id number] Closed 07/23/2021 07/23/2022 1 1 MICS AX TECHNICAL ARCHITECT Reason for Visit Outpatient (Routine) - Closed Specialty Diagnoses / Procedures Referred By Contact Refer red To Contact Hematology Oncology Janusz Govea [place] R eg[facility] M.B.B.S. [address] [place] [phone] Referral ID Status Reason Start Date Expiration Date Visits Requ ested Visits Authorized [id number] Closed 07/02/2021 07/02/2022 1 1 Encounter Details Date Type Department Care Team Description 07/23/2021 Office Visit Division of Hematology Xuan, Myelo fibrosis Primary in [facility], (HCC) (Primary Dx) [place] M.B.B.S. 200 [facility] 200 [place] [phone] Social History Tobacco Use Types Packs/Day Years [...] at Date Recorded Female 07/24/2021 11:03 AM DYNAMICS AX TECHNICAL ARCHITECT documented as of this encounter Last Filed Vital Signs Vital Sign Reading Time Taken Comments Blood Pressure 104/65 07/23/2021 1:50 PM DYNAMICS AX TECHNICAL ARCHITECT Pulse 71 07/23/2021 1:50 PM DYNAMICS AX TECHNICAL ARCHITECT Temperature 35.9 ??C (96.7 ??F) 07/23/2021 1:50 PM DYNAMICS AX TECHNICAL ARCHITECT Respiratory Rate - - Oxygen Saturation - - Inhaled Oxygen Concentration - - Weight 92.5 kg (204 lb 0.6 oz) 07/23/2021 1:50 PM DYNAMICS AX TECHNICAL ARCHITECT Height 173.3 cm (5' 8.23) 07/23/2021 1:50 PM DYNAMICS AX TECHNICAL ARCHITECT Body Mass Index 30.82 07/23/2021 1:50 PM DYNAMICS AX TECHNICAL ARCHITECT documented in this encounter Progress Notes Janusz Govea M.B.B.S. - 07/23/2021 2:00 PM CST SUBJECTIVE CHIEF COMPLAINT/REASON FOR VISIT Primary myelofibrosis. HISTORY OF PRESENT ILLNESS Mrs. Dobbs is a pleasant 51-year-old lady with primary myelofibrosis, previously treated with Jakafi with lack of response, alisertib clinical trial, 9-ING clinical study. 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 I saw her in clinic on 06/06, at which time she had increasing lower extremity edema, was found to have pulmonary hypertension, and was hospitalized on the Hem 2 Service for IV diuretic therapy. Since being discharged from the hospital, she continues to do well. She has been taking torsemide on a regular basis. Fluid issues have resolved. She started on fedratinib 200 mg daily on 06/25 and has noticed improvement in her abdominal discomfort related to splenomegaly. Night sweats have improved as well. Overall, her quality of life has markedly improved. She had a consultation with General Surgery last year, and we have deferred splenectomy for now given the improvement with fedratinib. She has been requiring red blood cell transfusions on a weekly basis. She is here today for a BMT consultation with my colleague, Dr. Zamarripa. OBJECTIVE DIAGNOSTICS Laboratory studies reviewed. Hemoglobin is down to 6.6 g/dL. Platelet count is down as well at 72,000 related to the fedratinib. 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 Cytogenetics with deletion 13q. NGS with CALR and SF3B1 mutations. However, her clinical situation parameters suggested more aggressive disease. Since initiation of fedratinib at 200 mg daily, she has improvement in spleen size and constitutional symptoms. I have advised her to increase the dose to 300 mg on Friday, Friday, Friday and 200 mg the rest of the week. She will continue with CBC checks on a weekly basis and transfusion support. #4 Pulmonary hypertension on torsemide 20 mg daily. A radionucleotide scan has been set up for later this month. She was scheduled to undergo a cardiac catheterization, but we will defer that for now since I suspect the pulmonary hypertension is related to her primary myelofibrosis, and improvement in her diseasemay lead to improvement of that as well. #5 Consideration of allogeneic transplant She has a BMT consultation this afternoon. #6 Followup I plan to visit with her in 3 months' time, at which time I will obtain blood work and ultrasound tofollow up on spleen size. Evy Foreman. CT CT Job ID: [id number] MICS AX TECHNICAL ARCHITECT documented in this encounter Plan of Treatment Scheduled Referrals Name Type Priority Associated Order Schedule Diagnoses Hematology office Outpatient Referral Routine Exp ected: visit (clinic) 10/21/2021 (Approximate), Expires: 10/21/2022 documented as of this encounter Results US Spleen (10/24/2021 10:17 [...] with infarction. IMPRESSION: Unchanged marked splenomegaly. Janusz ArringtonBZahraaS. IMG US PROCEDURES (ABNORMAL) LD (Lactate Dehydrogenase) (10/24/2021 9:42 AM CDT) Patholo gist Method Time Signature Lactate 641 (H) 122 - 222 10/24/2021 DTL Dehydrogenase U/L 10:55 AM CDT (LD), S Specimen Anatomical Collection Method Collection Time Receive d Time (Source) Location / / Volume Laterality Blood (Blood, 10/24/2021 9:42 AM 10/25/19 22 Venous) CDT 10:34 AM CDT Janusz ArringtonBZahraaSZahraa LAB BLOOD NON ADD-ON Performing Organization Address City/State/ZIP Code Phon e Number [facility] - [address] [place], [place] [address] [place] [address] [facility] [address] (ABNORMAL) Comprehensive Metabolic Panel (10/24/2021 9:42 AM [...] 10/24/2021 DTL Black/ mL/min/BSA 10:56 AM CDT [place] Comment: ----ADDITIONAL INFORMATION---- Estimated GFR calculated using [...] Organization Address City/State/ZIP Code Phon e Number [facility] - [address] [place], [place] [address] [place] [address] [facility] [address] (ABNORMAL) Morphology Evaluation (Special Smear) (10/24/2021 9:42 AM CDT) Analysis Performed At Patho logist Time Signature Neutrophilic Segs 75 50 - 75 % 10/24/2021 [facility] 11:53 AM CDT Lymphocytes 15 (L) 18 - 42 % 10/24/2021 [facility] 11:53 AM CDT Monocytes 1 (L) 2 - 11 % 10/24/2021 [facility] 11:53 AM CDT Eosinophils 1 1 - 3 % 10/24/2021 [facility] 11:53 AM CDT Basophils 1 0 - 2 % 10/24/2021 [facility] 11:53 AM CDT Myelocytes 7 (H) <0.5 % 10/24/2021 [facility] 11:53 AM CDT Nucleated RBC 6 /100 WBC 10/24/2021 PM 11:53 AM CDT Manual Absolute 3.08 1.56 - 10/24/2021 [facility] Neutrophil Count 6.45 11:53 AM CDT x10(9)/L Comment: ----ADDITIONAL INFORMATION---- The manual absolute neutrophil count is derived from a manual differential count and therefore is not exactly comparable to the automated absolute halie trophil count. Interpretation Moderate dacrocytes are present. 11:53 AM CDT [facility] Reviewed by: Liz 10/24/2021 11:53 AM CDT [facility] Specimen Anatomical Collection Method Collection Time Receive d Time (Source) Location / / Volume Laterality Blood (Blood, 10/24/2021 9:42 AM 10/25/19 22 Venous) CDT 10:09 AM CDT Janusz Ardon LAB BLOOD ADD-ON Performing Organization Address City/State/ZIP Code Phon e Number [facility] - [address] [place] [address] [place] [address] [facility] [address] [facility] (ABNORMAL) CBC with Differential, Blood (10/24/2021 9:42 AM CDT) [facility] Method Time Signature Hemoglobin 6.8 (L) 11.6 [...] Count 84 (L) 157 - 371 10/24/2021 [facility] x10(9)/L 10:57 AM CDT Leukocytes 4.1 3.4 [...] Organization Address City/State/ZIP Code Phon e Number [facility] - [address] [place], [place] [address] [place] [address] [facility] [address] [place] [address] [facility] [address] documented in this encounter Visit Diagnoses Diagnosis Myelofibrosis Primary (HCC) - Primary Myelofibrosis Primary (HCC) documented in this encounter Care Teams Assembler Leather Goods Relationship Specialty Start Date End Date None Reported, Pcp PCP - General Family Medicine 02/16/21 documented as of this encounter
--- OUTSIDE RECORDS SUMMARY | 2022-05-02 12:05 | XMS_ITS | Encounter Summary ---
:1970 Author Organization [facility] Address 200 [place] [address] Care Team Providers Name Role Phone None Reported, Pcp Primary Care Provider Unavailable Encounter Details Date Type Department Care Team Description 10/09/2021 Hospital Encounter Department of Edin Willis Acute Myeloblastic Laboratory Medicine H, MILK BOTTLING MACHINE OPERATOR, C.N .P. 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 morphine (MSIR) 15 mg Take 15 mg by mouth 0 03/11/2022 tablet at bedtime. oxyCODONE (OXY-IR) 5 mg Take 2 capsules by 0 02/1203/18/2022 immediate release mouth every 4 capsule (four) hours as needed. Research IRB [id number] Take by mouth. 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
--- OUTSIDE RECORDS SUMMARY | 2022-05-02 12:05 | XMS_ITS | Encounter Summary ---
:[address] [facility] Address [address] [place] [address] Care Team Providers Name Role Phone None Reported, Pcp Primary Care Provider Unavailable Reason for Referral Specialty Diagnoses / Procedures Referred By Contact Refer red To Contact Janusz Govea M.B .B.S. [facility] [address] [place] [phone] Referral ID Status Reason Start Date Expiration Date Visits Requ ested Visits Authorized E POST DRIVER Reason for Visit Reason Comments Set up transfuion Encounter Details Date Type Department Care Team Description 07/23/2021 Clinical Communication Division of Oriana Govea transfuion Hematology in [place], [place] MurphyB.S. [address] [place] [address] [place] [phone] Social History Tobacco Use Types Packs/Day Years [...] at Date Recorded Female 07/24/2021 11:03 AM FENCE POST DRIVER documented as of this encounter Miscellaneous Notes Telephone Encounter - Nuvia Rodriguez R.N. - 07/23/2021 1:13 PM FENCE POST DRIVER Update....she is getting transfused later today, she has full schedule tomorrow. Cintia Carr E POST DRIVER Addendum Note - Nuvia Rodriguez R.N. - 07/23/2021 11:44 AM FENCE POST DRIVER Addended by: NUVIA RODRIGUEZ on: 07/23/2021 11:44 AM Modules accepted: Orders E POST DRIVER Telephone Encounter - Nuvia Rodriguez R.N. - 07/23/2021 11:42 AM FENCE POST DRIVER Patient hgb is 6.6 today, requesting to be transfused tomorrow here if ok with you I did place orders. She has an appt with you today, there is nothing you need to sign as long as you are ok with the plan. Cintia Carr E POST DRIVER Telephone Encounter - Nuvia Rodriguez R.N. - 07/23/2021 9:54 AM FENCE POST DRIVER I did not see a cbc or type and screen with todays labs so I did add from stored serum to see if thelab could do them this way. I will watch to see if they get run, she wants to get blood here today if needed, but not sure if we will be get an appt for today. I will watch for labs and let you know castillo cannot add on the cbc and she will need to have it drawn again. Cintia Carr E POST DRIVER Telephone Encounter - Yelena Liang 07/23/2021 9:41 AM CST Patient's called in inquiring if they could set up a transfusion while they are here at [facility] Dr. Govea. Typically the patient gets her transfusions locally but since they are here, he wondered if one could be set up for tomorrow afternoon as they have time between appointments. He would appreciate a return call to discuss if this is possible. Thank you Yelena YOON E POST DRIVER documented in this encounter Plan of Treatment Scheduled Referrals Name Type Priority Associated Diagnoses Order S [facility] Blood Administration Outpatient Routine Myelofibrosis Primar y Expected: in Infusion Therapy; Referral (HCC) 022 (Approximate), Expires: 10/21/2022 documented as of this encounter Results (ABNORMAL) CBC with Differential, Blood (07/23/2021 10:44 AM FENCE POST DRIVER) [facility] gist Method Time Signature Hemoglobin 6.6 (L) 11.6 - 07/23/2021 DTL 15.0 g/dL 11:28 AM FENCE POST DRIVER Hematocrit 21.6 (L) 35.5 - 07/23/2021 DTL 44.9 % 11:28 AM FENCE POST DRIVER Erythrocytes 2.43 (L) 3.92 - 07/23/2021 DTL 5.13 11:28 AM FENCE POST DRIVER x10(12)/L MCV 88.9 78.2 - 07/23/2021 DTL 97.9 fL 11:28 AM FENCE POST DRIVER RBC Distrib Width 26.3 (H) 12.2 - 07/23/2021 DTL 16.1 % 11:28 AM FENCE POST DRIVER Platelet Count 90 (L) 157 - 371 07/23/2021 DTL x10(9)/L 11:28 AM FENCE POST DRIVER Leukocytes 3.5 3.4 - 9.6 07/23/2021 DTL x10(9)/L 12:25 PM FENCE POST DRIVER Comment: Results confirmed by smear. Neutrophils SeeComment 1.56 - 6.45 x10(9)/L 07/23/2021 12:25 PM FENCE POST DRIVER DTL Comment: Auto-diff results not valid. Se e manual differential. Specimen Anatomical Collection Method Collection Time Receive d Time (Source) Location / / Volume Laterality Blood (Blood, 07/23/2021 10:44 07/23/2021 Venous) AM FENCE POST DRIVER 11:18 AM FENCE POST DRIVER Janusz Ardon LAB BLOOD ADD-ON Performing Organization Address City/[facility] Code Phon e Number [facility] - 200 [place], [place] [address] [facility] [place] [address] Laboratories-[address] Type and Screen (with reflex Antibody ID) (07/23/2021 10:44 AM FENCE POST DRIVER) [facility] [employer] Method Time Signature ABORh A Pos Not 07/23/2021 ETRM applicable 1:27 PM FENCE POST DRIVER Antibody Negative Negative 07/23/2021 ETRM Screen 1:33 PM FENCE POST DRIVER Type & Screen 07/26/2021 07/23/2021 ETRM Expiration 23:59 1:27 PM FENCE POST DRIVER Testing [place] DEFAULT 07/23/2021 ETRM Location 11:41 AM FENCE POST DRIVER Specimen Anatomical Collection Method Collection Time Receive d Time (Source) Location / / Volume Laterality Blood (Blood, 07/23/2021 10:44 07/23/2021 Venous) AM FENCE POST DRIVER 11:41 AM FENCE POST DRIVER Janusz AlexandraSZahraa LAB BLOOD BANK TEST ORDERABL ES Performing Organization Address [facility] Phon e Number [facility] - 200 [place], [place] [address] [facility] [place] [address] Laboratories-[address] (ABNORMAL) CBC with Differential, Blood (07/23/2021 10:44 AM FENCE POST DRIVER) [facility] [employer] Method Time Signature Hemoglobin 6.7 (L) 11.6 - 07/23/2021 DTL 15.0 g/dL 11:29 AM FENCE POST DRIVER Hematocrit 21.7 (L) 35.5 - 07/23/2021 DTL 44.9 % 11:29 AM FENCE POST DRIVER Erythrocytes 2.43 (L) 3.92 - 07/23/2021 DTL 5.13 11:29 AM FENCE POST DRIVER x10(12)/L MCV 89.3 78.2 - 07/23/2021 DTL 97.9 fL 11:29 AM FENCE POST DRIVER RBC Distrib Width 26.3 (H) 12.2 - 07/23/2021 DTL 16.1 % 11:29 AM FENCE POST DRIVER Platelet Count 72 (L) 157 - 371 07/23/2021 DTL x10(9)/L 11:29 AM FENCE POST DRIVER Leukocytes 3.5 3.4 - 9.6 07/23/2021 DTL x10(9)/L 12:34 PM FENCE POST DRIVER Comment: Results confirmed by smear. Specimen Anatomical Collection Method Collection Time Receive d Time (Source) Location / / Volume Laterality Blood (Blood, 07/23/2021 10:44 07/23/2021 Venous) AM FENCE POST DRIVER 11:18 AM FENCE POST DRIVER Janusz Ardon LAB BLOOD ADD-ON Performing Organization Address City/State/ZIP Code Phon e Number [facility] - [address] [place], [place] [address] [facility] [place] [address] [facility] [address] documented in this encounter Visit Diagnoses Diagnosis Myelofibrosis Primary (HCC) - Primary documented in this encounter Care Teams Records Clerk Relationship Specialty Start Date End Date None Reported, Pcp PCP - General Family Medicine 02/16/21 documented as of this encounter
--- OUTSIDE RECORDS SUMMARY | 2022-05-02 12:05 | XMS_ITS | Encounter Summary ---
:1970 Author Organization [facility] Address [address] [place] [address] Care Team Providers Name Role Phone None Reported, Pcp Primary Care Provider Unavailable Encounter Details Date Type Department Care Team Description 09/06/2021 Orders Only Division of Hematology Janusz Govea F luid Overload in [facility] milton ArringtonB.S. 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
--- OUTSIDE RECORDS SUMMARY | 2022-05-02 12:05 | XMS_ITS | Encounter Summary ---
:1970 Author Organization [facility] Address [address] [place] [address] Care Team Providers Name Role Phone None Reported, Pcp Primary Care Provider Unavailable Encounter Details Date Type Department Care Team Description 08/14/2021 Specialty Pharmacy [facility] Matthew Travis [address] Sarabjit Starks Jr., 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 - 08/15/2021 9:33 AM DAMPER FITTER SUBJECTIVE REASON FOR VISIT Specialty pharmacy reassessment of patient's medication knowledge, adherence, and side effects via patient reported questionnaire. Reassessment questions were asked via phone by a patient care attendant. (reviewed at or around patient requested refill ) HISTORY OF PRESENT ILLNESS Ms. Jennifer Dobbs is a 51 y.o. female, who is followed by the specialty pharmacy service for Inrebic (fedratinib). (Indication: hematology/oncology) Patient reported reassessment questions and responses: Informant: spouse How comfortable are you understanding the medication(s) you receive from [facility]?: Very Comfortable Side Effects Requiring Attention: no Patient Reported X Missed Doses in the Last Month: 0 Please rate your confidence in your ability to keep taking your medication(s) as prescribed.: excellent confidence How would you rate the effectiveness of your specialty medication(s)?: not certain In general, would you say your quality of life is: fair Pain rating 0-10: 7/10 Any new/changes in allergies or medications to report?: no new/changes in allergies or medications OBJECTIVE Lab Results Component Value Date CREATININE 1.26 (H) 07/02/2021 ASSESSMENT / PLAN 1. Medication Knowledge and Adherence In reference to the patient reported information above and reviewing refill history in the [facility] record. The patient/caregiver reports appropriate medication knowledge. No adherence issues identified. 2. Medication Side effects/Adverse Events In reference to the patient reported information above: The patient/caregiver reports no medication side effects requiring attention. No reported adverse drug reactions, allergic reactions, overdoses or medication errors. 3. Effectiveness Patient reports medication effectiveness to be: 'not certain'. Also, please refer to provider assessment/plan within [facility] on the following date 07/23/2021. 4. Quality of Life Patient currently rating quality of life as 'Fair'. 5. Summary and continued Goals of therapy Based on the above information, the patient's therapy is appropriate to continue. Continue to: -Promote medication adherence. -Evaluate other newly prescribed therapies as needed for drug-drug and drug- disease appropriateness.Specialty medications reconciled and good kay attempt made in maintaining a complete medication list (via dispensing program) at each dispense of medication. -Mitigate, treat or prevent side effects. This patient does not meet the definition of high risk by [facility]SP definition. Follow-up: 1 month(s) Matthew Travis Jr., R.Ph. ER FITTER documented in 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 Care Teams Sales Service Assistant Relationship Specialty Start Date End Date None Reported, Pcp PCP - General Family Medicine 02/16/21 documented as of this encounter
--- OUTSIDE RECORDS SUMMARY | 2022-05-02 12:05 | XMS_ITS | Encounter Summary ---
:1970 Author Organization [facility] Address [address] [place] [address] Care Team Providers Name Role Phone None Reported, Pcp Primary Care Provider Unavailable Reason for Referral Outpatient (Routine) - Closed Specialty Diagnoses / Procedures Referred By Contact Refer red To Contact Diagnoses Myelofibrosis Primary (HCC) Janusz Govea M.B.B.SZahraa [facility] Procedures US Spleen US Abdomen Limited [address] [place] [address] [phone] Referral ID Status Reason Start Date Expiration Date Visits Requ ested Visits Authorized [id number] Closed 10/24/2021 10/24/2022 1 1 Outpatient (Routine) - Closed Specialty Diagnoses / Procedures Referred By Contact Refer red To Contact Hematology Oncology Janusz Govea [place] [facility] M.B.B.S. [address] [place] [phone] Referral ID Status Reason Start Date Expiration Date Visits Requ ested Visits Authorized [id number] Closed 10/24/2021 10/24/2022 1 1 Reason for Visit Outpatient (Routine) - Closed Specialty Diagnoses / Procedures Referred By Contact Refer red To Contact Hematology Oncology Janusz Govea [place] [facility] M.B.B.S. [address] [place] [phone] Referral ID Status Reason Start Date Expiration Date Visits Requ ested Visits Authorized [id number] Closed 07/23/2021 07/23/2022 1 1 Encounter Details Date Type Department Care Team Description 10/24/2021 Office Visit Division of Hematology Xuan Myelo fibrosis Primary in [facility] [place], (HCC) (Primary Dx) [place] MZahraaBZahraaB.S. 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 - 10/24/2021 11:30 AM CDT SUBJECTIVE CHIEF COMPLAINT/REASON FOR VISIT Primary myelofibrosis. HISTORY OF PRESENT ILLNESS Ms. Dobbs is a pleasant 51-year-old lady with primary myelofibrosis here accompanied by . Prior treatments have included Jakafi with intolerance and lack of response, alisertib as part of a clinical study, 9-ING clinical trial. She had been on CLAIRE but continued to have transfusion dependence. I had a consult with her on 06/06/2021, at which time she was hospitalized due to pulmonary hypertension and fluid overload. She improved with diuretic therapy. She initiated 200 mg of fedratinib on 06/25 and noted symptomatic improvement in her abdominal discomfort related to splenomegaly with improvement in night sweats. My last visit with her was on 07/23, at which time we increased the dose of fedratinib to 300 mg alternating with 200 mg. She also had a consultation with Dr. Zamarripa, and at that time BMT was deferred pending improvement in her spleen size. She returns for 3-month visit. She reports to me that she has been requiring weekly red blood cell transfusions, re-initiated on CLAIRE therapy, which she is intolerant of. She has had intermittent spleen discomfort. We reviewed her ultrasound results which showed that spleen size is unchanged. Overall, she feels that her quality of life is improved on fedratinib even though objectively there have been no changes in transfusion needs or splenomegaly OBJECTIVE PHYSICAL EXAMINATION Vital Signs: Height is 171 cm. Weight is 94.3 kg. Temperature 97.9, pulse 89, blood pressure 125/82. Lower Extremities : No edema. DIAGNOSTICS Laboratory studies reviewed. Hemoglobin is 6.8 g/dL. She did receive 1 unit of RBC transfusion yesterday for hemoglobin of 6.3 g/dL. 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 She is hesitant to pursue splenectomy. I discussed with her that it will be best to increase the dose of fedratinib to 400 mg daily to see there is any objective improvement in her spleen size. Overall, she feels she is improved on fedratinib, but there have been no objective changes. In regards to her anemia, I have advised her to stop the CLAIRE therapy and to continue with weekly CBC check and transfusions as needed. #4 Pulmonary hypertension She is on torsemide. She has Cardiology followup this afternoon. #5 Consideration of allogeneic transplant She has a visit with Dr. Zamarripa this afternoon. We will defer transplant until there is improvement in her splenomegaly. #6 Followup I will see her in [address] Job ID: [id number] documented in this encounter Plan of Treatment Scheduled Referrals Name Type Priority Associated Order Schedule Diagnoses Hematology office Outpatient Referral Routine Exp ected: visit (clinic) 01/23/2022 (Approximate), Expires: 01/23/2023 documented as of this encounter Results US Spleen (02/13/2022 4:46 [...] echogenic lesions likely reflect hemangiomas. Janusz Ardon IMG US PROCEDURES (ABNORMAL) LD (Lactate Dehydrogenase) (02/13/2022 4:01 PM CDT) [facility] Method Time Signature Lactate 676 (H) 122 - 222 02/13/2022 DTL Dehydrogenase U/L 5:26 PM CDT (LD), S Specimen Anatomical Collection Method Collection Time Receive d Time (Source) Location / / Volume Laterality Blood (Blood, 02/13/2022 4:01 PM 02/14/20 4:30 Venous) CDT PM CDT Janusz Ardon LAB BLOOD NON ADD-ON Performing Organization Address City/State/ZIP Code Phon e Number [facility] - [address] [place], [place] [address] [facility] [place] [address] [facility] [address] [facility] (ABNORMAL) Comprehensive Metabolic Panel (02/13/2022 4:01 PM [...] 02/13/2022 DTL Black/ mL/min/BSA 5:42 PM CDT Tanzanian Comment: ----ADDITIONAL INFORMATION---- Estimated GFR calculated using [...] Code Phon e Number [facility] - [address] [place], [place] [address] [facility] [place] [address] [facility] [address] (ABNORMAL) SPSMA Result (02/13/2022 4:01 PM CDT) [facility] Method Time Signature Neutrophilic Segs 70 [...] CDT Nucleated RBC 11 /100 WBC 02/13/2022 [facility] 7:21 PM CDT Manual Absolute 1.82 1.56 - 02/13/2022 [facility] Neutrophil Count 6.45 7:21 PM CDT x10(9)/L Comment: ----ADDITIONAL INFORMATION---- The manual absolute neutrophil count is derived from a manual differential count and therefore is not exactly comparable to the automated absolute halie trophil count. Interpretation Moderate dacrocytes are present. 7:21 PM CDT [facility] Reviewed by: Liz 02/13/2022 7:21 PM CDT [facility] Specimen Anatomical Collection Method Collection Time Receive d Time (Source) Location / / Volume Laterality Blood (Blood, 02/13/2022 4:01 PM 02/14/20 4:30 Venous) CDT PM CDT Janusz Ardon LAB BLOOD ADD-ON Performing Organization Address City/State/ZIP Code Phon e Number [facility] - [address] [place] [address] [place] [address] [facility] 200 [facility] (ABNORMAL) CBC with Differential, Blood (02/13/2022 4:01 PM CDT) [facility] Method Time Signature Hemoglobin 6.5 (L) [...] Code Phon e Number [facility] - [address] [place], [place] [address] [facility] [place] [address] [facility] [address] documented in this encounter Visit Diagnoses Diagnosis Myelofibrosis Primary (HCC) - Primary Myelofibrosis Primary (HCC) documented in this encounter Care Teams Lead Fabricator Relationship Specialty Start Date End Date None Reported, Pcp PCP - General Family Medicine 02/16/21 documented as of this encounter
--- OUTSIDE RECORDS SUMMARY | 2022-05-02 12:05 | XMS_ITS | Encounter Summary ---
:1970 Author Organization [facility] Address [address] [place] [address] Care Team Providers Name Role Phone None Reported, Pcp Primary Care Provider Unavailable Reason for Referral Outpatient (Routine) - Authorized Specialty Diagnoses / Procedures Referred By Contact Refer red To Contact Diagnoses Hypertension Pulmonary (HCC) Dyspnea On Exertion Charity Tijerina M.B.B.S. [facility] Procedures NM Lung Perfusion Only NM Lung Ventilation and Perfusion [address] [place] [phone] Referral ID Status Reason Start Date Expiration Date Visits V isits Requested Authorized [id number] Authorized 06/29/2021 06/29/2022 6 6 GER CARDIOLOGY Reason for Visit Outpatient (Routine) - Authorized Specialty Diagnoses / Procedures Referred By Contact Refer red To Contact Diagnoses Hypertension Pulmonary (HCC) Dyspnea On Exertion Charity Tijerina M.B.B.S. [facility] Procedures NM Lung Perfusion Only NM Lung Ventilation and Perfusion [address] [place] [address] Referral ID Status Reason Start Date Expiration Date Visits V isits Requested Authorized [id number] Authorized 06/29/2021 06/29/2022 6 6 Encounter Details Date Type Department Care Team Description 08/01/2021 Hospital Encounter Department of Charity Tijerina, Hyperte nsion Pulmonary (HCC); Radiology, [place] M.B.B.S. 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 [facility] IR[facility] [id number] Take by mouth. Pt is 0 03/11/2022 alisertib ([id number]) 10 unsure of what this mg DR [...] Procedure Name Priority Date/Time Associated Comments Diagnosis NM LUNG PERFUSION RAD - Routine 08/01/2021 9:58 Hypertension Result s for this ONLY (most inpatients AM MANAGER CARDIOLOGY Pulmonary (HCC) procedure are in and all Dyspnea On Exertion the resu lts outpatients) section. documented in this encounter Results NM Lung Perfusion Only (08/01/2021 9:58 AM MANAGER CARDIOLOGY) Anatomical Region Laterality Modality Chest, Nuclear Medicine RST LOS, Nuclear Medicine ARZ N/A Nuclear Medicine LOS, Nuclear Medicine FLA LOS, Nuclear Medicine Specimen (Source) Anatomical Collection Method Collection Time Re ceived Time Location / / Volume Laterality 08/01/2021 9:55 AM MANAGER CARDIOLOGY Impressions 08/01/2021 10:11 AM MANAGER CARDIOLOGY No evidence of acute or chronic pulmonary embolism on planar perfusion imaging. Narrative 08/01/2021 10:11 AM MANAGER CARDIOLOGY EXAM: ??NM LUNG PERFUSION ONLY RADIOPHARMACEUTICAL/MEDS: Route: intravenous technetium Tc 99m albumin aggregated inj ection (Tc-99m MAA),6.46 millicurie TECHNIQUE: ??Multiple projection planar lung perfusion images obtained beginning 5 minutes following IV radiotracer injec tion. Patient declined any further imaging wit h SPECT-CT, which limits diagnostic sensitivity and specificity for pulmonar y embolism. Ventilation scan was not performed due to supply limitations and increased safety measures in the setting of the COVID-19 pandemic. COMPARISON: CT chest angiogram 1. INDICATION: ??Pulmonary hypertension, qu estion chronic thromboembolic pulmonary hypertension FINDINGS: ??Somewhat heterogeneous perfu linda of both lungs, corresponding to scattered groundglass opacities and mosa ic attenuation identified on prior chest CT. Small rounded perfusion deficit viviana g the mid posterior left lung likely corresponds to relatively posteriorly di rected left main pulmonary artery combined with a small left pleural effus ion with regional atelectasis and/or scarring also seen on prior CT. No large segmental or subsegmental segmental peripheral wedge-shaped perfusion defici ts to suggest acute or chronic pulmonary embolism. Procedure Note Nora Watkins M.D. - 08/01/2021Form atting of this note might be different from the original. EXAM: NM LUNG PERFUSION ONLY RADIOPHARMACEUTICAL/MEDS: Route: intravenous technetium Tc 99m albumin aggregated inj ection (Tc-99m MAA),6.46 millicurie TECHNIQUE: Multiple projection planar nettie ng perfusion images obtained beginning 5 minutes following IV radiotracer injec tion. Patient declined any further imaging wit h SPECT-CT, which limits diagnostic sensitivity and specificity for pulmonar y embolism. Ventilation scan was not performed due to supply limitations and increased safety measures in the setting of the COVID-19 pandemic. COMPARISON: CT chest angiogram 1. INDICATION: Pulmonary hypertension, ques tion chronic thromboembolic pulmonary hypertension FINDINGS: Somewhat heterogeneous perfusi on of both lungs, corresponding to scattered groundglass opacities and mosa ic attenuation identified on prior chest CT. Small rounded perfusion deficit viviana g the mid posterior left lung likely corresponds to relatively posteriorly di rected left main pulmonary artery combined with a small left pleural effus ion with regional atelectasis and/or scarring also seen on prior CT. No large segmental or subsegmental segmental peripheral wedge-shaped perfusion defici ts to suggest acute or chronic pulmonary embolism. IMPRESSION: No evidence of acute or chronic pulmonar y embolism on planar perfusion imaging. Charity Ardon [facility] [place] PROCEDURES documented in this encounter Visit Diagnoses Diagnosis Hypertension Pulmonary (HCC) Dyspnea On Exertion documented in this encounter Administered Medications Inactive Administered Medications - up to 3 most recent administrations Medication Order MAR Action Action Date Dose Rate Site technetium Tc 99m Given 08/01/2021 9:35 6.46 millicuries Right Antecubital albumin aggregated AM MANAGER CARDIOLOGY injection (Tc-99m MAA) 6.46 millicurie, intravenous, Once, On Fri08/01/21 at 0945, For 1 dose documented in this encounter Care Teams Burlap Bag Sewer Relationship Specialty Start Date End Date None Reported, Pcp PCP - General Family Medicine 02/16/21 documented as of this encounter
--- OUTSIDE RECORDS SUMMARY | 2022-05-02 12:05 | XMS_ITS | Encounter Summary ---
:1970 Author Organization [facility] Address [address] [place] [address] Care Team Providers Name Role Phone Elsewhere, Pcp Primary Care Provider Unavailable Encounter Details Date Type Department Care Team Description 10/23/2021 Orders Only Division of Hematology Dinorah Morales 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 Allele)[ Normalized MFI] NOTE: Data is displayed in descending or kesha by Mean Fluorescence Intensity (MFI). ??Serologic equivalents can be di splayed multiple times for different molecular alleles. SAB [id number] Specificity NONE 10/26/2021 7:41 A M CDT [...] below 10/26/2021 7:41 AM CDT [id number] Comment: 14(A*02:01;B*14:01)[6125], 10(A*02:02;B* 10:01)[3043], 3(A*02:01;B*03:01)[1311], 9(A*02:01;B*09 :01)[1216], 5(A*02:02;B*05:01)[786], 17(A*02:01;B*17 :01)[781], 1(A*02:01;B*01:01)[563] Format: Serologic Eq.(DPA1;DPB1 Mol. All char)[Normalized MFI] NOTE: Data is displayed in descending or kesha by Mean Fluorescence Intensity (MFI). ??Serologic equivalents can be di splayed multiple times for different molecular alleles. ----ADDITIONAL INFORMATION---- Method: Luminex Flow Cytometry CLIA: [id number] ??CLIA Layup Worker: VALENTINA GOLD MD,PhD Specimen Anatomical Collection Method Collection Time Receive d Time (Source) Location / / Volume Laterality Blood (Blood, 10/24/2021 9:42 AM 10/25/19 22 Venous) CDT 11:00 AM CDT Dinorah Ardon LAB HLA ORDERABLES Performing Organization Address City/State/[facility] Code Phon e Number [facility] - [address] [place], [place] [address] [facility] DBB[address] [place] [address] [facility] [address] HLA Class I SAB Antibody Screen (10/24/2021 9:42 AM CDT) [facility] Method Time Signature Class I SAB [...] ----ADDITIONAL INFORMATION---- Method: Luminex Flow Cytometry CLIA: [id number] ??CLIA Layup Worker: VALENTINA GOLD MD,PhD Specimen Anatomical Collection Method Collection Time Receive d Time (Source) Location / / Volume Laterality Blood (Blood, 10/24/2021 9:42 AM 10/25/19 Venous) CDT 11:00 AM CDT Dinorah Ardon LAB HLA ORDERABLES Performing Organization Address City/State/[facility] Code Phon e Number [facility] - [address] [place], [place] [address] [facility] [address] [place] [address] [facility] [address] documented in this encounter Visit Diagnoses Diagnosis Myelofibrosis Primary (HCC) - Primary documented in this encounter Additional Health Concerns Infection Onset Date Last Indicated Resolved Time COVID19 Pending 10/24/2021 11/05/2021 11/05/2021 11:54 PM CDT documented as of this encounter Care Teams Counter Intelligence Relationship Specialty Start Date End Date Elsewhere, Pcp PCP - General 11/04/21 documented as of this encounter
--- OUTSIDE RECORDS SUMMARY | 2022-05-02 12:05 | XMS_ITS | Encounter Summary ---
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 of this encounter Plan of Treatment Scheduled Orders Name Type Priority Associated Diagnoses Order S cheduadelina HLA Class I SAB Lab HLA Routine Acute Myeloblastic Expect ed: 10/09/2021, Antibody Screen Leukemia Not Having Expir es: 10/09/2022 Achieved Remission (HCC) HLA Class II SAB Lab HLA Routine Acute Myeloblastic Expec latonya: 10/09/2021, Antibody Screen Leukemia Not Having Expir es: 10/09/2022 Achieved Remission (HCC) documented as of this encounter Visit Diagnoses Diagnosis 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
--- OUTSIDE RECORDS SUMMARY | 2022-05-02 12:05 | XMS_ITS | Encounter Summary ---
:1970 Author Organization [facility] Address [address] [place] [address] Care Team Providers Name Role Phone None Reported, Pcp Primary Care Provider Unavailable Encounter Details Date Type Department Care Team Description 09/07/2021 Clinical Communication Division of Hematology Janusz Govea, in [facility] milton Higgins.B.S. 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 Govea Does the patient need to see Cardiovascular Disease urgently or can this be scheduled in October when she is coming back for a Hematology follow up? Thank you Ting LARSEN HER OPERATOR documented in 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 Care Teams Operations Advisor Relationship Specialty Start Date End Date None Reported, Pcp PCP - General Family Medicine 02/16/21 documented as of this encounter
--- OUTSIDE RECORDS SUMMARY | 2022-05-02 12:05 | XMS_ITS | Encounter Summary ---
:1970 Author Organization [facility] Address [address] [place] [id number] Care Team Providers Name Role Phone None Reported, Pcp Primary Care Provider Unavailable Encounter Details Date Type Department Care Team Description 10/16/2021 Specialty Pharmacy [facility] Aida Streeter, [address] Sarabjit Starks 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 - 10/17/2021 3:06 PM CDT SUBJECTIVE REASON FOR VISIT Specialty pharmacy reassessment of patient's medication knowledge, adherence, and side effects via patient reported questionnaire. Reassessment questions were asked via phone by a patient pediatric acute care unit nurse. (reviewed at or around patient requested refill ) HISTORY OF PRESENT ILLNESS Ms. Jennifer Dobbs is a 51 y.o. female, who is followed by the specialty pharmacy service for Inrebic (fedratinib) for myelofibrosis. Patient reported reassessment questions and responses: Informant: spouse How comfortable are you understanding the medication(s) you receive from [facility]?: Very Comfortable Side Effects Requiring Attention: no Patient Reported X Missed Doses in the Last Month: 0 Reasons for Non-Adherence: no problems identified Please rate your confidence in your ability to keep taking your medication(s) as prescribed.: excellent confidence How would you rate the effectiveness of your specialty medication(s)?: good In general, would you say your quality of life is: good Pain rating 0-10: 6/10 Any new/changes in allergies or medications to report?: no new/changes in allergies or medications Gaps in Refill History Greater than 2 Weeks in the Last 3 Months: no Confirmed Plan for Next Specialty Medication Refill: delivery by pharmacy OBJECTIVE Lab Results Component Value Date CREATININE 1.26 (H) 07/02/2021 ASSESSMENT / PLAN 1. Medication Knowledge and Adherence In reference to the patient reported information above and reviewing refill history in the [facility] record. The patient/caregiver reports appropriate medication knowledge. No adherence issues identified. 2. Medication Side effects/Adverse Events In reference to the patient reported information above: The patient/caregiver reports no medication side effects requiring attention. No reported adverse drug reactions, allergic reactions, overdoses or medication errors. 3. Effectiveness Patient reports medication effectiveness to be: 'good'. Also, please refer to provider assessment/plan within [facility]. See clinic note, Dr. Morales, 07/23/21. 4. Quality of Life Patient currently rating quality of life as 'Good'. 5. Pain Patient currently rating pain as 6/10. 6. Summary and continued Goals of therapy Based [...] meet the definition of high risk by [facility] definition. Follow-up: February by phone Aida Streeter Pharm.D., R.Ph. documented in 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 Care Teams Casing Runner Relationship Specialty Start Date End Date None Reported, Pcp PCP - General Family Medicine 02/16/21 documented as of this encounter
--- OUTSIDE RECORDS SUMMARY | 2022-05-02 12:05 | XMS_ITS | Encounter Summary ---
:1970 Author Organization [facility] Address [address] [place] [address] Care Team Providers Name Role Phone None Reported, Pcp Primary Care Provider Unavailable Encounter Details Date Type Department Care Team Description 09/04/2021 Orders Only Department of Oncology in Pietro De Luna M.D. 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
--- OUTSIDE RECORDS SUMMARY | 2022-05-02 12:06 | XMS_ITS | Encounter Summary ---
:1970 Author Organization [facility] Address [address] [place] [address] Care Team Providers Name Role Phone None Reported, Pcp Primary Care Provider Unavailable Reason for Visit Reason Comments Med Refill Encounter Details Date Type Department Care Team Description 06/12/2021 Clinical Communication Division of Hematology Janusz Govea, Med Refill in [facility] M.Cain.B.S. [address] [facility] [address] [place] [phone] Social History Tobacco Use Types Packs/Day Years Used Date Smoking Tobacco: Former Smokeless Tobacco: Never Alcohol Use Standard Drinks/Week Comments Not Currently [...] at Date Recorded Female 07/24/2021 11:03 AM HAND UPPER AND BOTTOM LACER documented as of this encounter Miscellaneous Notes Telephone Encounter - Linda Apple - 06/12/2021 10:17 AM CST [facility] sending notice they are able to fill prescription for inrebic. Fax placed in the eFax Rx folder UPPER AND BOTTOM LACER documented in 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 Additional Health Concerns Infection Onset Date Last Indicated Resolved Time COVID19 Pending 06/29/2021 07/15/2021 07/15/2021 2:24 PM HAND UPPER AND BOTTOM LACER documented as of this encounter Care Teams Hoop Maker Machine Relationship Specialty Start Date End Date None Reported, Pcp PCP - General Family Medicine 02/16/21 documented as of this encounter
--- OUTSIDE RECORDS SUMMARY | 2022-05-02 12:06 | XMS_ITS | Encounter Summary ---
:1970 Author Organization [facility] Address [address] [place] [address] Care Team Providers Name Role Phone None Reported, Pcp Primary Care Provider Unavailable Encounter Details Date Type Department Care Team Description 06/20/2021 Clinical Communication Division of Hematology [facility] in [facility] M.B.B.S. 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 - 06/21/2021 3:12 PM ARMHOLE RAISER LOCKSTITCH Jocelyne at Dr. Schmitt called back and said patient is now being followed at [facility] for labsand transfusions. I spoke with her and her and they are following with Dr. Boyce in [place]. He reports she had labs on Friday and received RBC's on Friday. I looked in CE and we do not have access to the records. I let them know this and asked them to sign a release so we could view thesein CE. Her said it is a [facility] facility, but I do not see anything in the chart.She has an appointment and labs with Dr. Boyce tomorrow so is receiving follow up. I asked him to call us with contact information so we can get the records faxed to us if they do not appear in CE after he signs the r elease of information. I will see if the secretary administrative assistant can inquire about getting authorization for this also. OLE RAISER LOCKSTITCH Telephone Encounter - Mary Ann Shaver R.N. - 06/21/2021 10:23 AM ARMHOLE RAISER LOCKSTITCH I spoke with Jocelyne and stated patient needed at least weekly CBC with diff and fluid monitoring donelocally. Per notes on 06/12 discharge she also needs cbc and CMP done week after starting fedratinib, which per d/c notes was to be picked up by patient and started on 06/12. Jocelyne stated she was to come in for labs this week, but called and cancelled stating they were being followed my [facility]. I told her patient needs to follow locally also and she will get in touch with patient to confirm sheis following up there. Patient is not back here for labs and appointment with Dr. Govea until 07/02/21. She stated Dr. Cr had agreed patient will need local follow up and had asked her to call us to confirm. I asked Jocelyne to contact if there are any questions or if patient is refusing local followup care. OLE RAISER LOCKSTITCH Telephone Encounter - Mary Ann Shaver R.N. - 06/21/2021 9:57 AM ARMHOLE RAISER LOCKSTITCH Anything specific I need to update her about? Thanks, Cintia OLE RAISER LOCKSTITCH Telephone Encounter - Margy Proctor - 06/20/2021 9:34 AM ARMHOLE RAISER LOCKSTITCH Name of caller: Jennifer Dobbs Reason for call: Jocelyne is needing an updated plan for Mrs. Dobbs. Please give her a call when convenient. Call back number is [phone]. Is it okay to leave a voicemail on answering machine? No. Is it okay to send a patient online message with your reply? No. Thank you, Aydee YOON OLE RAISER LOCKSTITCH documented in 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 Care Teams Financial Cost Analyst Relationship Specialty Start Date End Date None Reported, Pcp PCP - General Family Medicine 02/16/21 documented as of this encounter
--- OUTSIDE RECORDS SUMMARY | 2022-05-02 12:06 | XMS_ITS | Encounter Summary ---
:1970 Author Organization [facility] Address [address] [place] [address] Care Team Providers Name Role Phone None Reported, Pcp Primary Care Provider Unavailable Reason for Referral Specialty Diagnoses / Procedures Referred By Contact Refer red To Contact Laurita Reyes P .A.-C., M.S. [address] [phone] Referral ID Status Reason Start Date Expiration Date Visits Requ ested Visits Authorized utpatient (Routine) - Closed Specialty Diagnoses / Procedures Referred By Contact Refer red To Contact Hematology Oncology Laurita Reyes [facility] Nikki, M.S. [address] [place] [phone] Referral ID Status Reason Start Date Expiration Date Visits Requ ested Visits Authorized [id number] Closed 06/11/2021 06/11/2022 1 1 IC DESIGNER Reason for Visit Outpatient (Routine) - Closed Specialty Diagnoses / Procedures Referred By Contact Refer red To Contact Hematology Oncology Laurita Reyes [facility] Nikki, M.S. [address] [place] [phone] Referral ID Status Reason Start Date Expiration Date Visits Requ ested Visits Authorized [id number] Closed 06/11/2021 06/11/2022 1 1 Encounter Details Date Type Department Care Team Description 06/12/2021 Hospital Encounter [facility] Reyes, Myelofibr osis Primary (HCC); Hospital, [facility] Unspecified [place], [facility] Nikki M.S. 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 DESIGNER documented as of this encounter Last Filed Vital Signs Vital Sign Reading Time Taken Comments Blood Pressure 123/71 06/12/2021 9:26 AM SCENIC DESIGNER Pulse 119 06/12/2021 9:26 AM SCENIC DESIGNER Temperature 36.9 ??C (98.4 ??F) 06/12/2021 9:26 AM SCENIC DESIGNER Respiratory Rate 20 06/12/2021 9:26 AM SCENIC DESIGNER Oxygen Saturation - - Inhaled Oxygen Concentration - - Weight 96.5 kg (212 lb 11.9 oz) 06/12/2021 9:26 AM SCENIC DESIGNER Height - - Body Mass Index 33.99 06/06/2021 8:04 PM SCENIC DESIGNER documented in this encounter Medications at Time of Discharge Medication Sig Dispensed Refills Start Date End Date allopurinoL (ZYLOPRIM) Take one tab by 90 tablet 3 03/14/20 21 300 mg tablet mouth daily. folic acid 1 mg tablet Take by mouth daily. 0 LORazepam (ATIVAN) 0.5 Take 1-2 mg by mouth 0 mg tablet at bedtime as needed for anxiety or sleep. morphine (MS CONTIN) 60 Take 1 tablet by 0 07/16/ 2019 mg ER tablet mouth 2 (two) times [...] every 4 (four) capsule hours as needed. documented as of this encounter Progress Notes Margie Hairston P.A.-C., M.S. - 06/12/2021 9:15 AM CST REFERRING PHYSICIAN Patient Care Team: Janusz Govea M.B.B.SZahraa as Primary Veterinary Assistant (Hematology) SUBJECTIVE CHIEF COMPLAINT / REASON FOR VISIT Ms. Dobbs is a 51 y.o. female with a history of Myelofibrosis (HCC). HISTORY OF PRESENT ILLNESS I reviewed the pertinent Oncology/Hematology history as outlined in the Oncology history section of the EMR. The following portions of the patient's history were reviewed and updated as appropriate: allergies,current medications, medical history and problem list. Ms. Dobbs presents to station 74 for labs and exam. She is feeling fairly well. She is happy to be out of the hospital. She slept well last night. Her shortness of breath is stable. She feels like herrib/abdominal pain is improving on the left side. She continues to have lower extremity edema but feels it is significantly improved compared to previously. She no longer has any abdominal bloating or distention. She denies chest pain, bleeding, or fevers. No other complaints or concerns today. REVIEW OF SYSTEMS As listed above OBJECTIVE VITAL SIGNS Temperature: [36.5 ??C-36.9 ??C] 36.9 ??C Resp Rate: [16-20] 20 Blood Pressure: (112-129)/(71-95) 123/71 SpO2: [96 %-98 %] 96 % Pulse Rate: [108-119] 119 PHYSICAL EXAM General: Alert and oriented times three. No acute distress. Accompanied by her . Skin: No acute rashes or lesions. Scattered petechiae in bilateral lower extremities. Eyes: Anicteric Heart: Regular rate and rhythm. Audible S1/S2. No murmur, rub, or gallop. Lungs: Clear to auscultation bilaterally with the exception of slight wheeze in right upper lobe. Breathing comfortably on room air. Abdomen: Soft, non distended. Normo-active bowel sounds. Extremities: +2 bilateral lower extremity edema, most notable in the feet. ASSESSMENT / PLAN Transfuse to keep hemoglobin > 8 (symptoms) and platelets > 10. Patient does not require pre-medications prior to RBCs and platelets. Lasix required post transfusion. Informed consent for blood product transfusions was completed as an outpatient on 06/06/21 and is good for 1 year. 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 Boyce in [facility] on 06/15 and will be discharged from station 74 to have labs followed locally. However, she is to call Station 74 prior to that follow-up appointment if she were to develop symptoms indicative of need for transfusion earlier than 06/15. - Follow up with Dr. Govea 07/02/21 #3 Splenomegaly Acquired #4 Abdominal Pain - Abdominal US on 06/06 showed marked splenomegaly - Plan for splenectomy, tentatively scheduled 07/16/21 - Pre splenectomy vaccinations administered 06/06: PCV13, HIB, Miller, MenB, and influenza - Additional doses required: - MenB 07/04/21, MCV4 and PPSV23 08/01/20 - Continue long acting morphine - Continue oxycodone as needed #5 Fluid Overload Unspecified #6 Failure Heart Right (HCC) #7 Hypertension Pulmonary (HCC) - Estimated dry weight around 95 kg - Weight continuing to decrease at 96.5 kg today - Continue daily torsemide - As above, diuresis with all blood products - Follow up with Cardiology 06/29 - Sleep Medicine Consult 09/04 for abnormal overnight oximetry #8 Hyperphosphatemia #9 Hyperuricemia #10 Elevated Creatinine - Phosphorous has decreased to 4.6, continue PhosLo three times daily for the remainder of prescription (4 days) - Uric acid decreasing at 5.6, continue allopurinol - Creatinine slightly elevated at 1.21 but within recent baseline, continue adequate hydration despite ongoing diuresis COVID-19 Outpatient Station 74 Screening - Per ID recommendations for OP 74 Hematology patients, COVID-19 testing should occur 24-72 hours prior to starting chemotherapy - COVID-19 test was Undetected- Date 06/06/21 Plan: - She will be discharged from outpatient station 74 for local lab monitoring starting 06/15. Should she develop symptoms prior to that time, she should call station 74 to be seen for assessment for transfusion prior to being established at home facility. Scheduled Appointments 06/29/2021 1:00 PM Charity Tijerina M.B.B.S. Cardiovascular Disease 07/02/2021 11:00 AM LAB BLOOD [facility] Laboratory Medicine 07/02/2021 1:30 PM Janusz Govea M.B.B.S. Hematology 07/23/2021 3:00 PM HEM BMT CLINIC [address] [place] [address] Hematology 07/24/2021 7:30 AM Purvi Davis L.I.C.S.W., M.S.W. Transplant 09/04/2021 2:30 PM Carlos Manuel Johnson M.D. Sleep Medicine For appointment details refer to your Patient Appointment Guide. IC DESIGNER documented in this encounter Plan of Treatment Scheduled Referrals Name Type Priority Associated Order Schedule Diagnoses Hematology office Outpatient Referral Routine Onc e for 1 visit (clinic) Occurrences starting 2020 until Medication Infusion Outpatient Referral Routine Fluid Overload Once for 1 Therapy; Unspecified Occurrences furosemide/bumetani starting 06/12/2021 de (diuresis); 2 until 06/12 hours documented as of this encounter Procedures Procedure Name Priority Date/Time Associated Diagnosis Comme nts MORPHOLOGY EVAL Routine 06/12/2021 9:28 AM Result s for this (SPECIAL SMEAR) SCENIC DESIGNER procedure ar e in the results section. CBC NO CALL BACK, Routine 06/12/2021 9:28 AM Myelofibrosis Nicole kendra Results for this REFLEX T/S SCENIC DESIGNER (HCC) procedure are i n the results section. URIC ACID, S/P Routine 06/12/2021 9:28 AM Myelofibrosis Primar y Results for this SCENIC DESIGNER (HCC) procedure are i n the results section. PHOSPHORUS Routine 06/12/2021 9:28 AM Myelofibrosis Primary Results for this (INORGANIC), S SCENIC DESIGNER (HCC) procedure are in the results section. BASIC METABOLIC Routine 06/12/2021 9:28 AM Myelofibrosis Prima ry Results for this PANEL, S/P SCENIC DESIGNER (HCC) procedure are i n the results section. documented in this encounter Results (ABNORMAL) Morphology Evaluation (Special smear) (06/12/2021 9:28 AM SCENIC DESIGNER) [facility] Method Time Signature Neutrophilic Segs 81 (H) 50 - 75 % 06/12/2021 DHPM and Bands 10:41 AM SCENIC DESIGNER Lymphocytes 10 (L) 18 - 42 % 06/12/2021 DHPM 10:41 AM SCENIC DESIGNER Monocytes 2 2 - 11 % 06/12/2021 DHPM 10:41 AM SCENIC DESIGNER Metamyelocytes 1 (H) <1 % 06/12/2021 DHPM 10:41 AM SCENIC DESIGNER Myelocytes 6 (H) <0.5 % 06/12/2021 DHPM 10:41 AM SCENIC DESIGNER Nucleated RBC 3 /100 WBC 06/12/2021 DHPM 10:41 AM SCENIC DESIGNER Manual Absolute 2.84 1.56 - 06/12/2021 DHPM Neutrophil Count 6.45 10:41 AM SCENIC DESIGNER x10(9)/L Comment: ----ADDITIONAL INFORMATION---- The manual absolute neutrophil count is derived from a manual differential count and therefore is not exactly comparable to the automated absolute halie trophil count. Specimen Anatomical Collection Method Collection Time Receive d Time (Source) Location / / Volume Laterality Blood 06/12/2021 9:28 AM 9:41 SCENIC DESIGNER AM SCENIC DESIGNER Laurita Reyes P.A.-C., M.S. LAB PATHOLOGY/CYTOLOGY ORDERABLES Performing Organization Address City/[facility] Phon e Number [place] [phone] [address] [place] [address] Laboratories-[address] Uric Acid (06/12/2021 9:28 AM SCENIC DESIGNER) athologist Signature Uric Acid, S 5.6 2.7 - 6.1 06/12/2021 DTL mg/dL 12:19 PM SCENIC DESIGNER Specimen Anatomical Collection Method Collection Time Receive d Time (Source) Location / / Volume Laterality Blood (Blood, 06/12/2021 9:28 AM 06/12/20 21 Venous) SCENIC DESIGNER 10:18 AM SCENIC DESIGNER Laurita Reyes P.A.-C., M.S. LAB BLOOD ADD-ON Performing Organization Address [facility] Phon e Number [place] [phone] [facility] DTL [address] (ABNORMAL) Phosphorus Inorganic (06/12/2021 9:28 AM SCENIC DESIGNER) athologist Signature Phosphorus 4.6 (H) 2.5 - 4.5 06/12/2021 DTL (Inorganic), S mg/dL 12:19 PM SCENIC DESIGNER Specimen Anatomical Collection Method Collection Time Receive d Time (Source) Location / / Volume Laterality Blood (Blood, 06/12/2021 9:28 AM 06/12/20 21 Venous) SCENIC DESIGNER 10:18 AM SCENIC DESIGNER Laurita Reyes P.A.-C., M.S. LAB BLOOD ADD-ON Performing Organization Address City/[facility] Phon e Number [facility] - 200 [place], [place] [address] [facility] [address] Laboratories-[facility] 200 [facility] (ABNORMAL) Basic Metabolic Panel (06/12/2021 9:28 AM SCENIC DESIGNER) Analysis Performed At Patho logist Time Signature Potassium, S 5.0 3.6 - 5.2 06/12/2021 DTL mmol/L 12:19 PM SCENIC DESIGNER Sodium, S 143 135 - 145 06/12/2021 DTL mmol/L 12:19 PM SCENIC DESIGNER Chloride, S 100 98 - 107 06/12/2021 DTL mmol/L 12:19 PM SCENIC DESIGNER Bicarbonate, S 33 (H) 22 - 29 06/12/2021 DTL mmol/L 12:19 PM SCENIC DESIGNER Anion Gap 10 7 - 15 06/12/2021 DTL 12:19 PM SCENIC DESIGNER BUN (Blood Urea 36 (H) 6 - 21 06/12/2021 DTL Nitrogen), S mg/dL 12:19 PM SCENIC DESIGNER Creatinine 1.21 (H) 0.59 - 06/12/2021 DTL 1.04 mg/dL 12:19 PM SCENIC DESIGNER eGFR-Non 51 (L) >=60 06/12/2021 DTL Black/ mL/min/BSA 12:19 PM SCENIC DESIGNER [place] Comment: ----ADDITIONAL INFORMATION---- Estimated GFR calculated using the 2009 CKD_EPI creatinine equation. eGFR-Black/ 59 (L) >=60 mL/min/BSA 2020 12:19 PM SCENIC DESIGNER DTL Comment: ----ADDITIONAL INFORMATION---- Estimated GFR calculated using the 2009 CKD_EPI creatinine equation. Calcium, Total, S 9.2 8.6 - 10.0 mg/dL 06/12/2021 12:1 9 PM SCENIC DESIGNER DTL Glucose, S 141 (H) 70 - 140 mg/dL 06/12/2021 12:19 PM SCENIC DESIGNER DTL Specimen Anatomical Collection Method Collection Time Receive d Time (Source) Location / / Volume Laterality Blood (Blood, 06/12/2021 9:28 AM 06/12/20 21 Venous) SCENIC DESIGNER 10:18 AM SCENIC DESIGNER Laurita Reyes P.A.-C., M.S. LAB BLOOD ADD-ON Performing Organization Address City/State/ZIP Code Phon e Number [facility] - 200 [place], [place] [address] [facility] [address] Laboratories-[address] (ABNORMAL) CBC no call back, reflex T/S HGB <8 (06/12/2021 9:28 AM SCENIC DESIGNER) [facility] Method Time Signature Hemoglobin 8.6 (L) 11.6 - 06/12/2021 DHPM 15.0 g/dL 9:53 AM SCENIC DESIGNER Hematocrit 27.7 (L) 35.5 - 06/12/2021 DHPM 44.9 % 9:53 AM SCENIC DESIGNER Erythrocytes 3.26 (L) 3.92 - 06/12/2021 DHPM 5.13 9:53 AM SCENIC DESIGNER x10(12)/L MCV 85.0 78.2 - 06/12/2021 DHPM 97.9 fL 9:53 AM SCENIC DESIGNER RBC Distrib Width 22.3 (H) 12.2 - 06/12/2021 DHPM 16.1 % 9:53 AM SCENIC DESIGNER Platelet Count 109 (L) 157 - 371 06/12/2021 DHPM x10(9)/L 9:53 AM SCENIC DESIGNER Leukocytes 3.5 3.4 - 9.6 06/12/2021 PM x10(9)/L 10:40 AM SCENIC DESIGNER Comment: Results confirmed by smear. Neutrophils SeeComment 1.56 - 6.45 x10(9)/L 06/12/2021 10:40 AM SCENIC DESIGNER DHPM Comment: Auto-diff results not valid. Se e manual differential. Specimen Anatomical Collection Method Collection Time Receive d Time (Source) Location / / Volume Laterality Blood (Blood, 06/12/2021 9:28 AM 06/12/20 9:41 Venous) SCENIC DESIGNER AM SCENIC DESIGNER Laurita Reyes P.A.-C., M.S. LAB BLOOD NON ADD-ON Performing Organization Address City/State/ZIP Code Phon e Number [facility] - [address] [place] [address] [address] [place] [address] [facility]-[address] documented in this encounter Visit Diagnoses Diagnosis Myelofibrosis Primary (HCC) - Primary Fluid Overload Unspecified Myelofibrosis (HCC) Pancytopenia (HCC) Fluid Overload Unspecified Splenomegaly Acquired Hyperphosphatemia Abdominal Pain Failure Heart Right (HCC) Hypertension Pulmonary (HCC) documented in this encounter Care Teams Fusing Furnace Loader Relationship Specialty Start Date End Date None Reported, Pcp PCP - General Family Medicine 02/16/21 documented as of this encounter
--- OUTSIDE RECORDS SUMMARY | 2022-05-02 12:06 | XMS_ITS | Encounter Summary ---
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 - 06/26/2021 2:51 PM SALES ASSISTANT I spoke with her , they are at [facility] receiving one unit of RBC's right now. She will continue to have labs done there and transfusions as needed per . Cintia Carr S ASSISTANT Telephone Encounter - AppleLinda lomax Gene - 06/26/2021 1:34 PM CST Outside labs collected on 06/25/2021 have been received. The fax has been scanned into the patient record via Cardize, and the CBC results are as noted below. Hemoglobin: 7.1 Hematocrit: 22.9 WBC: 3.02 ANC: 1.92 Platelets: 87 Please note: Are there additional labs reported on the outside report? Yes S ASSISTANT documented in 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 Additional Health Concerns Infection Onset Date Last Indicated Resolved Time COVID19 Pending 06/29/2021 07/15/2021 07/15/2021 2:24 PM SALES ASSISTANT COVID19 Pending 07/22/2021 07/22/2021 07/22/2021 4:53 PM SALES ASSISTANT documented as of this encounter Care Teams Production Control Technologist Relationship Specialty Start Date End Date None Reported, Pcp PCP - General Family Medicine 02/16/21 documented as of this encounter
--- OUTSIDE RECORDS SUMMARY | 2022-05-02 12:06 | XMS_ITS | Encounter Summary ---
:1970 Author Organization [facility] Address [address] [place] [address] Care Team Providers Name Role Phone None Reported, Pcp Primary Care Provider Unavailable Encounter Details Date Type Department Care Team Description 06/11/2021 Specialty Pharmacy [facility] Alec Myelofibr osis (HCC) Pharmacy Cathi Barlow, (Primary Dx) [address] Pharm.D., R.P h. 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 - 06/11/2021 4:46 PM CST SUBJECTIVE REASON FOR VISIT Patient counseling and education, via telephone, for new hematology/oncology medication therapy and establishing medication reassessment timeline. HISTORY OF PRESENT ILLNESS Ms. Jennifer Dobbs is a 51 y.o. female, who is followed by the specialty pharmacy service for Inrebic (fedratinib) for myelofibrosis. Patient baseline rating for quality of life: unable to obtain. OBJECTIVE Lab Results Component Value Date CREATININE 1.14 (H) 06/11/2021 ASSESSMENT / PLAN 1. Medication counseling I counseled the patient's , Gian via phone. Not peer reviewed Education related to medication: Inrebic (fedratinib) ??? Proper use: we discussed the patient's dose and that taking Inrebic with a high-fat meal may decrease incidence of nausea and vomiting. Advised patient if a dose is missed, take dose at the next regularly scheduled time. ??? Timely administration/intake: we discussed the use of a smartphone application, or a calendar. ??? Storage: advised to store at room temperature. ??? Side effects: Diarrhea, Nausea, Vomiting, Anemia ??? Advised patient that other potential Warnings/ safety precautions exist: (Encephalopathy secondary to thiamine deficiency, thrombocytopenia, hepatotoxicity, amylase and lipase elevation.) ??? Lifestyle and self-management skills/ Tips to prevent adverse drug reactions: Utilize anti-emetic and anti-diarrheal medications as directed to prevent or treat gastrointestinal adverse effects. Report to prescriber nausea, vomiting, diarrhea, metal status changes, bleeding, or other significant adverse effects. ??? Interactions (drug/food interactions): Drug interactions referenced in #2 below. Food: Take Inrebic with a high-fat meal may decrease incidence of nausea and vomiting. ??? Contraindications/ considerations: Do not start therapy with Inrebic in patients with thiamine deficiency. Replete thiamine prior to initiation. Consider the benefits and risks of Inrebic for the mother and possible risks to the fetus when prescribing Inrebic to a woman. ??? Educational resource/decision support tools: [facility] The caregiver was attentive and ready to learn. They verbalized understanding and are in agreement with the plan for taking this new regimen. They were advised to contact the prescriber concerning symptoms or side effects as mentioned above. The importance of adherence to the treatment plan was emphasi zed in regard to success of therapy. Allergy, past sensitivity, medication and health history considered at cancer genetic counselor (renal function if available). To optimize outcomes, patient assessed for the need ofother possible supportive therapies and informed of importance of proper monitoring and future reassessment. The patient/caregiver's prior education on this new therapy and disease specific knowledge were assessed with counseling and education tailored to this level of understanding. Conley concerns and questions were addressed. Patient specific considerations/desires:None noted at this time. Education done via phone and printed medication materials included with the prescription. The patient/caregiver was encouraged to ask questions or to call the specialty pharmacy with questions they mayhave after reviewing printed material. Specialty pharmacy contact information and disposal information provided in the patient 'Welcome Packet'. No social, environmental, functional or cognitive barriers are apparent. Patient is eligible for service through [facility]. 2. Potential drug-drug interactions 1. Inrebic may increase the serum concentration of OxyCODONE. Monitor. Specialty medication(s) reconciled and good kay attempt made in obtaining a complete medication list (via dispensing program). Patient encouraged to report any new or change of medications (prescribed/over the counter/supplements) to assist in maintaining this list for accuracy. 3. Goals of therapy: Promote medication adherence. Evaluate other newly prescribed therapies as needed for drug-drug and drug- disease appropriateness. Mitigate, treat or prevent side effects. The patient has decided to use the [facility]. This patient does not meet the definition of high risk by [facility] definition. Follow-up: 1 month(s) Cathi Michael, Pharm.D., R.Ph. [employer] POLICE OFFICER documented in 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 Care Teams Social Media Project Manager Relationship Specialty Start Date End Date None Reported, Pcp PCP - General Family Medicine 02/16/21 documented as of this encounter
--- OUTSIDE RECORDS SUMMARY | 2022-05-02 12:06 | XMS_ITS | Encounter Summary ---
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 [facility] [id number] Take by mouth. Pt is 0 03/11/2022 alisertib ([id number]) 10 unsure of what this mg DR [...] Associated Diagnosis Comme nts SPSMA RESULT Routine 07/02/2021 11:01 Results for this AM AIRLINE PILOT FLIGHT INSTRUCTOR procedure are i n the results section. CBC WITH DIFFERENTIAL, Routine 07/02/2021 11:01 Splenomegaly R esults for this B AM AIRLINE PILOT FLIGHT INSTRUCTOR Acquired procedure are i n the results section. COMPREHENSIVE Routine 07/02/2021 11:01 Splenomegaly Results fo r this METABOLIC PANEL, S/P AM AIRLINE PILOT FLIGHT INSTRUCTOR Acquired procedu re are in the results section. documented in this encounter Results (ABNORMAL) Morphology Evaluation (Special Smear) (07/02/2021 11:01 AM AIRLINE PILOT FLIGHT INSTRUCTOR) Analysis Performed At Patho logist Time Signature Neutrophilic Segs 75 50 - 75 % 07/02/2021 DHPM and Bands 1:21 PM AIRLINE PILOT FLIGHT INSTRUCTOR Lymphocytes 14 (L) 18 - 42 % 07/02/2021 DHPM 1:21 PM AIRLINE PILOT FLIGHT INSTRUCTOR Monocytes 3 2 - 11 % 07/02/2021 DHPM 1:21 PM AIRLINE PILOT FLIGHT INSTRUCTOR Eosinophils 1 1 - 3 % 07/02/2021 DHPM 1:21 PM AIRLINE PILOT FLIGHT INSTRUCTOR Myelocytes 7 (H) <0.5 % 07/02/2021 DHPM 1:21 PM AIRLINE PILOT FLIGHT INSTRUCTOR Nucleated RBC 2 /100 WBC 07/02/2021 DHPM 1:21 PM AIRLINE PILOT FLIGHT INSTRUCTOR Manual Absolute 2.33 1.56 - 07/02/2021 DHPM Neutrophil Count 6.45 1:21 PM AIRLINE PILOT FLIGHT INSTRUCTOR x10(9)/L Comment: ----ADDITIONAL INFORMATION---- The manual absolute neutrophil count is derived from a manual differential count and therefore is not exactly comparable to the automated absolute halie trophil count. Specimen Anatomical Collection Method Collection Time Receive d Time (Source) Location / / Volume Laterality Blood 07/02/2021 11:01 07/02/2021 AM AIRLINE PILOT FLIGHT INSTRUCTOR 11:23 AM AIRLINE PILOT FLIGHT INSTRUCTOR Margy Frazier P.A.-C. LAB BLOOD ADD-ON Performing Organization Address City/State/ZIP Code Phon e Number [facility] - [address] [place], [place] [address] [place] [address] [facility] [address] (ABNORMAL) CBC with Differential, Blood (07/02/2021 11:01 AM AIRLINE PILOT FLIGHT INSTRUCTOR) Patholo gist Method Time Signature Hemoglobin 7.4 (L) 11.6 - 07/02/2021 DTL 15.0 g/dL 11:45 AM AIRLINE PILOT FLIGHT INSTRUCTOR Hematocrit 24.1 (L) 35.5 - 07/02/2021 DTL 44.9 % 11:45 AM AIRLINE PILOT FLIGHT INSTRUCTOR Erythrocytes 2.70 (L) 3.92 - 07/02/2021 DTL 5.13 11:45 AM AIRLINE PILOT FLIGHT INSTRUCTOR x10(12)/L MCV 89.3 78.2 - 07/02/2021 DTL 97.9 fL 11:45 AM AIRLINE PILOT FLIGHT INSTRUCTOR RBC Distrib Width 25.5 (H) 12.2 - 07/02/2021 DTL 16.1 % 1:16 PM AIRLINE PILOT FLIGHT INSTRUCTOR Platelet Count 88 (L) 157 - 371 07/02/2021 DTL x10(9)/L 11:45 AM AIRLINE PILOT FLIGHT INSTRUCTOR Leukocytes 3.1 (L) 3.4 - 9.6 07/02/2021 DTL x10(9)/L 1:20 PM AIRLINE PILOT FLIGHT INSTRUCTOR Comment: Results confirmed by smear. Neutrophils SeeComment 1.56 - 6.45 x10(9)/L 07/02/2021 1:20 PM AIRLINE PILOT FLIGHT INSTRUCTOR DTL Comment: Auto-diff results not valid. Se e manual differential. Specimen Anatomical Collection Method Collection Time Receive d Time (Source) Location / / Volume Laterality Blood (Blood, 07/02/2021 11:01 07/02/2021 Venous) AM AIRLINE PILOT FLIGHT INSTRUCTOR 11:23 AM AIRLINE PILOT FLIGHT INSTRUCTOR Margy Frazier P.A.-C. LAB BLOOD ADD-ON Performing Organization Address City/State/ZIP Code Phon e Number [facility] - [address] [place], [place] [address] [facility] [place] [address] [facility] [address] [facility] (ABNORMAL) Comprehensive Metabolic Panel (07/02/2021 11:01 AM AIRLINE PILOT FLIGHT INSTRUCTOR) Analysis Performed At Patho logist Time Signature Potassium, S 4.6 3.6 - 5.2 07/02/2021 DTL mmol/L 12:06 PM AIRLINE PILOT FLIGHT INSTRUCTOR Sodium, S 142 135 - 145 07/02/2021 DTL mmol/L 12:06 PM AIRLINE PILOT FLIGHT INSTRUCTOR Chloride, S 104 98 - 107 07/02/2021 DTL mmol/L 12:06 PM AIRLINE PILOT FLIGHT INSTRUCTOR Bicarbonate, S 30 (H) 22 - 29 07/02/2021 DTL mmol/L 12:06 PM AIRLINE PILOT FLIGHT INSTRUCTOR Anion Gap 8 7 - 15 07/02/2021 DTL 12:06 PM AIRLINE PILOT FLIGHT INSTRUCTOR BUN (Blood Urea 35 (H) 6 - 21 07/02/2021 DTL Nitrogen), S mg/dL 12:06 PM AIRLINE PILOT FLIGHT INSTRUCTOR Creatinine 1.26 (H) 0.59 - 07/02/2021 DTL 1.04 mg/dL 12:06 PM AIRLINE PILOT FLIGHT INSTRUCTOR eGFR-Non 49 (L) >=60 07/02/2021 DTL Black/ mL/min/BSA 12:06 PM AIRLINE PILOT FLIGHT INSTRUCTOR [place] Comment: ----ADDITIONAL INFORMATION---- Estimated GFR calculated using the 2009 CKD_EPI creatinine equation. eGFR-Black/ 56 (L) >=60 mL/min/BSA 2020 12:06 PM AIRLINE PILOT FLIGHT INSTRUCTOR DTL Comment: ----ADDITIONAL INFORMATION---- Estimated GFR calculated using the 2009 CKD_EPI creatinine equation. Calcium, Total, S 9.0 8.6 - 10.0 mg/dL 07/02/2021 12:0 6 PM AIRLINE PILOT FLIGHT INSTRUCTOR DTL Glucose, S 122 70 - 140 mg/dL 07/02/2021 12:06 PM AIRLINE PILOT FLIGHT INSTRUCTOR DTL Protein, Total, S 6.6 6.3 - 7.9 g/dL 07/02/2021 12:06 PM AIRLINE PILOT FLIGHT INSTRUCTOR DTL Albumin, S 4.5 3.5 - 5.0 g/dL 07/02/2021 12:06 PM AIRLINE PILOT FLIGHT INSTRUCTOR DTL Aspartate Aminotransferase 25 8 - 43 U/L 07/02/2021 1 2:06 PM AIRLINE PILOT FLIGHT INSTRUCTOR DTL (AST), S Alkaline Phosphatase, S 44 35 - 104 U/L 07/02/2021 12 :06 PM AIRLINE PILOT FLIGHT INSTRUCTOR DTL Alanine Aminotransferase (ALT), 10 7 - 45 U/L 021 12:06 PM AIRLINE PILOT FLIGHT INSTRUCTOR DTL S Bilirubin, Total, S 0.8 <=1.2 mg/dL 07/02/2021 12:06 P M AIRLINE PILOT FLIGHT INSTRUCTOR DTL Specimen Anatomical Collection Method Collection Time Receive d Time (Source) Location / / Volume Laterality Blood (Blood, 07/02/2021 11:01 07/02/2021 Venous) AM AIRLINE PILOT FLIGHT INSTRUCTOR 11:38 AM AIRLINE PILOT FLIGHT INSTRUCTOR Margy Frazier P.A.-C. LAB BLOOD ADD-ON Performing Organization Address City/State/ZIP Code Phon e Number [facility] - [address] [place], [place] [address] [facility] [place] [address] [facility] [address] documented in this encounter Visit Diagnoses Diagnosis Splenomegaly Acquired documented in this encounter Additional Health Concerns Infection Onset Date Last Indicated Resolved Time COVID19 Pending 06/29/2021 07/15/2021 07/15/2021 2:24 PM AIRLINE PILOT FLIGHT INSTRUCTOR documented as of this encounter Care Teams Sterile Supervisor Relationship Specialty Start Date End Date None Reported, Pcp PCP - General Family Medicine 02/16/21 documented as of this encounter
--- OUTSIDE RECORDS SUMMARY | 2022-05-02 12:06 | XMS_ITS | Encounter Summary ---
:1970 Author Organization [facility] Address [address] [place] [address] Care Team Providers Name Role Phone None Reported, Pcp Primary Care Provider Unavailable Encounter Details Date Type Department Care Team Description 06/13/2021 Orders Only Division of Endocrine [place], [place] Spl enomegaly Acquired and Metabolic Surgery R, R.N. 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 This result does not rule out COVID-19 in the patient, as the sensitivity of the test depends o n the timing of the specimen collection and quality of the specimen. Result should be correlated with patient's history and clinical presentat ion. ----ADDITIONAL INFORMATION---- This RT-PCR test using the [employer] SARS-Co V-2 Assay ( [employer].) performed on the [employer] Two Module System has received Emergency Use Authorization (EUA) by the U.S. Food and Drug Administration, and is modified from the broommaking supervisor's instructions with a bridging study. Performance characteristics were verifie d by [facility] in a manner consistent with CLIA requirements. Visit the CDC website: https://www.cdc.g ov/coronavirus/ for the most recent guidelines on [place] virus testing. Fact Sheet for Healthcare Providers: https://www.fda.gov/media/194856/downloa d Fact Sheet for Patients: https://www.fda.gov/media/564641/downloa d Specimen Anatomical Collection Method Collection Time Receive d Time (Source) Location / / Volume Laterality Varies 07/15/2021 9:34 AM 2 (Nasopharynx) POND WORKER 10:16 AM POND WORKER Jose Luis Lacy M.D. LAB MICROBIOLOGY - GENERAL O RDERABLES Performing Organization Address City/State/ZIP Code Phon e Number [facility] - [address] [place] [address] [facility] [place] [place] [address] [facility] [address] [facility] Type and Screen (with reflex Antibody ID) (07/15/2021 9:31 AM POND WORKER) [facility] gist Method Time Signature ABORh A Pos Not 07/15/2021 ETRM applicable 10:31 AM POND WORKER Antibody Negative Negative 07/15/2021 ETRM Screen 10:42 AM POND WORKER Type & Screen 07/18/2021 07/15/2021 ETRM Expiration 23:59 10:31 AM POND WORKER Testing [place] DEFAULT 07/15/2021 ETRM Location 9:36 AM POND WORKER Specimen Anatomical Collection Method Collection Time Receive d Time (Source) Location / / Volume Laterality Blood (Blood, 07/15/2021 9:31 AM 07/15/19 9:36 Venous) POND WORKER AM POND WORKER Jose Luis Lacy M.D. LAB BLOOD BANK TEST ORDERABL ES Performing Organization Address City/State/ZIP Code Phon e Number [facility] - [address] [place], [place] [address] [facility] [place] [address] [facility] [address] documented in this encounter Visit Diagnoses Diagnosis Splenomegaly Acquired - Primary documented in this encounter Care Teams Rail Signal Mechanic Relationship Specialty Start Date End Date None Reported, Pcp PCP - General Family Medicine 02/16/21 documented as of this encounter
--- OUTSIDE RECORDS SUMMARY | 2022-05-02 12:06 | XMS_ITS | Encounter Summary ---
:1970 Author Organization [facility] Address [address] [place] [address] Care Team Providers Name Role Phone None Reported, Pcp Primary Care Provider Unavailable Encounter Details Date Type Department Care Team Description 06/11/2021 Orders Only [facility], Laurita Reyes Flu id Overload [facility], N, P.A.-C., M. S. 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
--- OUTSIDE RECORDS SUMMARY | 2022-05-02 12:06 | XMS_ITS | Encounter Summary ---
:1970 Author Organization [facility] Address [address] [place] [phone] Care Team Providers Name Role Phone None Reported, Pcp Primary Care Provider Unavailable Reason for Referral Transplant (Routine) - Authorized Specialty Diagnoses / Procedures Referred By Contact Refer red To Contact Transplant Diagnoses Myelofibrosis Primary (HCC) Isidro Zamarripa M.B., [facility].. [address] [place] [phone] Referral ID Status Reason Start Date Expiration Date Visits V isits Requested Authorized [id number] Authorized 1 1 ER WASHER Transplant (Routine) - Authorized Specialty Diagnoses / Procedures Referred By Contact Refer red To Contact Transplant Surgery / Diagn[facility] [address] [place] [phone] Referral ID Status Reason Start Date Expiration Date Visits V isits Requested Authorized [id number] Authorized 07/23/2021 07/23/2022 1 1 Scheduling Instructions Please coordinate the visit with at hematology visit in upcoming weeks. ER WASHER Reason for Visit Outpatient (Routine) - Pending Review Specialty Diagnoses / Procedures Referred By Contact Refer red To Contact Hematology Diagnoses Myelofibrosis Primary (HCC) Janusz Govea M.B.BZahraaS. [facility] [address] [place], [place] [phone] Referral ID Status Reason Start Date Expiration Date Visits V isits Requested Authorized [id number] Pending 05/31/2021 05/31/2022 1 1 Review Encounter Details Date Type Department Care Team Description 07/23/2021 Comprehensive Visit Division of José Luis Govea M.B.B.S. [address] [place] [phone] Anxiety (Primary Dx); Hematology in Isidro Zamarripa M.B., B.Ch. [address] [place] [phone] Myelofibrosis Primary (HCC) [place], [place] [address] [place] [phone] Social History Tobacco Use Types Packs/Day Years [...] at Date Recorded Female 07/24/2021 11:03 AM RUBBER WASHER documented as of this encounter Consult Notes Dinorah Morales M.B.B.S. - 07/23/2021 3:00 PM CST SUBJECTIVE Referring Provider Janusz Govea M.B.B.S. REASON FOR CONSULT Primary myelofibrosis, assess for allogeneic stem cell transplant candidacy HISTORY OF PRESENT ILLNESS Ms. Jennifer Dobbs is a 51 y.o. female with a history of myelofibrosis. She was initially diagnosedin August 2015 after presenting to the local ED after developing severe left upper quadrant pain and found to have marked splenomegaly. She was evaluated by a local environmental field services technician and diagnosed with CALR mutated myelofibrosis. She was initiated on Jakafi at the time of diagnosis however this caused her to be transfusion dependent so it was discontinued. She was seen by Dr. Orta here in february 2016. A myeloproliferative neoplasm panel was done at [place] on 05/01/2016 that confirmed CALR and revealedthat she was negative for JAK2 V617F. She was enrolled in the [id number] clinical study and came off study in August 2016 after 3 cycles given toxicity. After coming off study in 2016 she was started onHydrea 500 mg twice daily, but by the summer of 2016 she had become RBC transfusion dependent. She had a repeat bone marrow aspirate and biopsy performed locally January 2019 which reveals myelofibrosis type 2 CALR SF3B1 mutated. She remain off the treatment for a while abd epeat bone marrow biopsy at [facility] 06/01/2020 and revealed persistent chronic myeloid neoplasm with no increase in blasts, grade 3 myelofibrosis and 20-30% sideroblasts. Cytogenetics revealed 13q deletion. NGS revealed CALR [id number]. She most recently was treated per [facility] clinical trial having received her last dose on 08/03/2020. She has been following locally with Dr. Cr and receiving erythropoiesis stimulating agents and transfusion support and felt probably were helpful.. She presented for follow up with Dr. Govea on 06/06/21 due to excess fluid accumulation and increasing pain and [facility] and clinical [facility]. She had a repeat bone marrow biopsy from 06/06/21 findings were consistent with the prior clinical and morphologic diagnosis of primary myelofibrosis harboring CALR and SF3B1 mutations.. She received aggressive diuresis during her hospitalization and lost more than 20 lb. Echo was performed 06/06 which revealed severe tricuspid regurgitation, right sided heart failure, and pulmonary hypertension. She was discharged following optimization and was seen in Pulmonary Hypertension clinic on 06/29 and underwent additional workup including pulmonaryfunction test revealed DLCO of less than 65%. She has a follow-up appointment with them to review all the diagnostic workup tomorrow. She also had nuclear medicine bone marrow scan performed 06/11 withminimally elevated diffuse activity in both lungs, favored to be related to scatter from liver/spleen, although mild diffuse pulmonary extramedullary hematopoiesis could appear similar. Based upon her n uclear medicine bone marrow scan that was for palliative radiation may not be of benefit. Plans for fedratinib prior Auth was initiated by Dr. Govea at and she has been started on this medication starting 06/25. She reports she is feeling well following discharge from hospital and being on this medication. She reports she has noticed improvement in her abdominal discomfort related to splenomegaly and also thinks her spleen size is shrinking. Overall she feels lot better however she ever continues to remain transfusion dependent and has been eating weekly will blood cell transfusions. She is here with her . She reports lightheadedness and fatigue. Her shortness of breath has much improved and now she is able to lie flat without any issues. She reports history of smoking for 26 years 1 pack a day and has quit smoking in 2012 but continues to smoke marijuana on a regular basis predominantly for anxiety. She has been using morphine for pain along with p.r.n. oxycodone. She lives with her . 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 She has 9 siblings, 50s to 70 years of age. Reports most of them are healthythe except couple of them have history of drug abuse. She has no kids. The following portions of the patient's history were reviewed and updated as appropriate: allergies,current medications, family history, medical history, social history, surgical history and problem list. REVIEW OF SYSTEMS Constitutional: Positive for fatigue. Negative for weight loss of more than 10 pounds. Respiratory: Positive for dyspnea. Cardiovascular: Positive for swelling in the legs or feet. Gastrointestinal: Positive for abdominal (belly) pain or cramping. Neurological: Positive for light-headedness and excessive daytime sleepiness. Psychiatric/Behavioral: Positive for excessive daytime sleepiness/tiredness and feeling nervous, anxious, or on edge in past two weeks. OBJECTIVE Weight: 92.5 kg Height: 173.3 cm BSA (Calculated - sq m): 2.11 sq meters BMI (Calculated): 30.8 kg/m?? Blood Pressure: 104/65 Pulse Rate: 71 Temperature: 35.9 ??C Temp Source: Tympanic PHYSICAL EXAM Constitutional General: She is not in acute distress. Appearance: She is well-developed and well-nourished. HENT Head: Normocephalic and atraumatic. Mouth/Throat: Mouth: Oropharynx is clear and moist. Eyes Extraocular Movements: EOM normal. Conjunctiva/sclera: Conjunctivae normal. Cardiovascular Rate and Rhythm: Normal rate and regular rhythm. Pulses: Intact distal pulses. Heart sounds: Normal heart sounds. Pulmonary Effort: Pulmonary effort is normal. No respiratory distress. Breath sounds: Normal breath sounds. Abdominal Palpations: Abdomen is soft. There is hepatomegaly, splenomegaly and hepatosplenomegaly. Musculoskeletal General: Edema present. Normal range of motion. Cervical back: Normal range of motion. Lymphadenopathy Cervical: No cervical adenopathy. Skin Findings: No rash. Neurological Mental Status: She is alert and oriented to person, place, and time. Psychiatric Mood and Affect: Mood and affect normal. Behavior: Behavior normal. DIAGNOSTICS I have reviewed the recent relevant diagnostics. No results found. Recent Results (from the past 72 hour(s)) SARS CoV-2 RNA, PCR, Varies Asymptomatic Collection Time: 07/22/21 11:31 AM Specimen: Nasopharynx; Varies Result Value SARS CoV-2 RNA, PCR, Source Swab, Nasopharynx SARS CoV-2 RNA, PCR Undetected CBC with Differential, Blood Collection Time: 07/23/21 10:44 AM Result Value Hemoglobin 6.7 (L) Hematocrit 21.7 (L) Erythrocytes 2.43 (L) MCV 89.3 RBC Distrib Width 26.3 (H) Platelet Count 72 (L) Leukocytes 3.5 Type and Screen (with reflex Antibody ID) Collection Time: 07/23/21 10:44 AM Result Value ABORh A Pos Antibody Screen Negative Type & Screen Expiration 07/26/2021 23:59 Testing Location [place] CBC with Differential, Blood Collection Time: 07/23/21 10:44 AM Result Value Hemoglobin 6.6 (L) Hematocrit 21.6 (L) Erythrocytes 2.43 (L) MCV 88.9 RBC Distrib Width 26.3 (H) Platelet Count 90 (L) Leukocytes 3.5 Neutrophils SeeComment Morphology Evaluation (Special Smear) Collection Time: 07/23/21 10:44 AM Result Value Neutrophilic Segs and Bands 79 (H) Lymphocytes 8 (L) Monocytes 2 Eosinophils 1 Basophils 6 (H) Metamyelocytes 1 (H) Myelocytes 2 (H) Blasts 1 (H) Nucleated RBC 1 Manual Absolute Neutrophil Count 2.77 ASSESSMENT / PLAN 1. CALR and SF3B1 mutated primary myelofibrosis, high risk 2. Transfusion dependent anemia 3. Symptomatic massive splenomegaly 4. Potential allogeneic stem cell transplant candidate 5. Severe tricuspid regurgitation and pulmonary hypertension 6. Active marijuana use ?? Mrs Jennifer Dobbs is a 51 yo year-old female with high-risk myelofibrosis with transfusion-dependent anemia and symptomatic massive splenomegaly. Initially diagnosed in 2016 with unfavorable cytogenetics with 13q deletion and SF3B1 and CALR mutated. She has received multiple treatments with poor tolerance and additionally with no benefit currently on fedratinib since last month. She is is fairly??symptomatic with moderate fatigue??and sx related to his notable splenomegaly however it appears these are improving since been started on fedratinib. Despite her decent performance status she does have a high comorbidity score with her HCT CI score is 6 given her underlying cardiopulmonary disease making her a less ideal transplant candidate at thispoint of time however could be consider if improvements can be made in this regard which is a possibility given this likely are related to her underlying myelofibrosis. ?? Given her high risk based on the MIPSS 70 scoring system we discussed the role of allogenic stem cell transplant with goal of cure and potentially avoiding any progression of the disease such as leukemic transformation.??We also discussed the pros and cons of an allogeneic stem cell transplant. Specifically, we discussed the various steps involved, including the necessary pre-transplant testing, administration of high dose chemotherapy, stem cell infusion, post transplant care and the post transplant recovery process. She understands that he will need to undergo extensive evaluation including cardiac and pulmonary evaluation along with routine laboratory evaluation, to ensure that there are no contraindications to proceeding with transplant. We discussed the need for central venous access, and the use of a tunneled catheter.??We??went over the process of high dose chemotherapy ??and the stem cell infusion that will follow the chemotherapy. The potential reactions to stem cell infusion include allergic reactions, fluid overload, pulmonary edema and hemolysis. We also discussed the possible sideeffects of the high dose chemotherapy including, but not limited to nausea, vomiting, diarrhea, mucositis, alopecia, cytopenia requiring transfusions, neutropenia that can result in infections and fever that may require IV antibiotics, risk of bleeding and thrombosis, anorexia, insomnia, cardiac arrhythmias, renal failure or other organ dysfunction and the small risk of . She understands that she will have to be in [place] for several weeks to months depending on the post transplant course. We also discussed various side effects specific to the allogeneic transplant including acute and chronic graft versus host disease, venoocclusive disease and various infections such as CMV infection. ?? Potential donor options, Siblings. She had 9 siblings, 50s-70s Overall we summarized that at this point of time she has a high risk disease and could be a considerable transplant candidate however will need reduction of her disease burden especially with massive splenomegaly for the successful transplant outcomes along with optimization of her cardiovascular status. It appears that the fedratinib seems to be working so was advised to continue on the current treatment with plans for evaluation in next 3 months while we work identify an ideal donor should circumstances and she will need a transplant sooner. She was agreeable for the plan. We additionally discussed consideration of Luspataracept given positive for SF3B1 mutation along with 20-30% sed We additionally discussed with regards to her anxiety and marijuana use and she is willing to see transplant Psychiatry to evaluate potential other pharmacological agents to to help with the anxiety and minimize the use of marijuana. She is advised to continue to follow-up with the pulmonary hypertension clinic as planned in place. Plan: -BMT prior auth and plan for HLA typing of her siblings. -consultation with Transplant Psychiatry. Will coordinate the visit with her next hematology visit here. -re-evaluate in 3 months time to discuss the donor situation and decisions with regards to transplant Education We discussed the diagnosis and treatment plan in detail. The patient expressed understanding of the content. No apparent learning barriers were identified; learning preferences include listening. Signed by: Murphy GantB.S. 07/23/2021 4:34 PM RUBBER WASHER ER WASHER Isidro Zamarripa M.B., B.Ch. - 07/23/2021 3:00 PM CST I met with and reviewed the situation in detail with the patient in conjunction with her andDr. Morales. I agree with Dr. Menard assessment as outlined. In summary the patient is a very pleasant 51-year-old female who is referred by Dr. Govea for consideration of allogeneic hematopoietic stem cell transplantation in the management of primary myelofibrosis. The patient has a past medical history which is quite complex. Is well outlined in the note of Dr. Morales. She initially presented in August 2015 with left upper quadrant pain was found to have marked splenomegaly. She was further evaluated and found to have CALR mutated myelofibrosis. She was commenced on ruxolitinib at that time however she did not tolerate this well, became transfusion dependent and therefore this was discontinued. She was seen here by Dr. Orta in February 2016. At that time she is confirmed to have CALR and negative for JAK2 V617F. She subsequently has been treated on the alisertib clinical trial. She came off this in August 2016 after 3 cycles for toxicity. She was then treated with hydroxyurea but became transfusion dependent. A repeat bone marrow study in 2018 demonstrated myelofibrosis with CALR and SF3B1 mutations. Subsequent bone marrow demonstrated 20-30% sideroblasts. Cytogenetics revealed 13q deletion. She subsequently was treated on 9-[facility] clinical trial with the last dose on 08/03/2020. She had been following locally in the interim receiving CLAIRE stimulat ing agents and transfusion support. She presented here on 06/06/2021 with clinical deterioration, fluid accumulation increasing pain and required inpatient admission. She underwent diuresis with more than 20 lb of fluid loss. Echocardiogram revealed severe tricuspid regurgitation right-sided heart failure and pulmonary hypertension. A liver-spleen scan did not show significant uptake in the lungs. She was commenced on fedratinib and clinically appears to be doing very well with this. She has much less abdominal discomfort although she continues to have massive splenomegaly. Her fluid status is improving. She continues to have lightheadedness when she lays flat presumably as a result of vascular compromise related to massive splenomegaly. She remains transfusion requiring. She continues to smoke marijuana on a regular basis for anxiety. She is taking morphine for pain. Exam is as outlined in the note of Dr. Morales. She has massive splenomegaly approximately 10 cm below the costal margin. Prominent hepatomegaly. Laboratory studies as outlined. Hemoglobin 6.7 gram/deciliter, leukocyte count 3.5, platelet count 72 K. IMPRESSION REPORT PLAN 1. CALR and SF3B1 mutated primary myelofibrosis,high risk based on the MIPSS 70 2. Transfusion dependent anemia 3. Symptomatic massive splenomegaly 4. Potential allogeneic stem cell transplant candidate 5. Severe tricuspid regurgitation and pulmonary hypertension 6. Active marijuana use 7. Increased HCT CI score ?? We reviewed the situation in detail. She has a complicated situation. Although her disease initiallylooked to be lower risk with the development of an abnormality of 13q, transfusion dependence, massive splenomegaly which was very symptomatic, pulmonary hypertension etc she is at very significant risk for progressive disease and life-threatening complications as a result. She also has significant comorbidities related to cardiopulmonary dysfunction. With this in mind and considering her young age Ithink it is reasonable to consider allogeneic hematopoietic stem cell transplant but she is at high risk for TRM and graft rejection at present and therefore it would be ideal if we could optimize her situation further. With this in mind we discussed the following 1. She seems to responding to fedratinib. Will try to continue this as long as she is deriving more benefit from this. 2. I wonder if she might benefit from luspatercept at some point considering the bone marrow findings of ring sideroblasts,SF3B1 mutation and transfusion requirements. 3. There was no clear evidence for pulmonary extramedullary hematopoiesis but she does have significant pulmonary hypertension etc. This may be related to the severe hepatosplenomegaly. Consideration of low-dose pulmonary radiation might be an option if she has worsening symptoms in the future and there was thought to be a contribution from extramedullary pulmonary hematopoiesis. 4. She does have multiple siblings. She is going to discuss this with him and we will proceed with HLA typing of those who consent. 5. Given the degree of massive splenomegaly at present she may need consideration of splenectomy unless there is a dramatic reduction in the size of the spleen as she is at significant risk for graft failure related to transfusions history, presence of anti HLA antibodies, massive spleen and underlying myelofibrosis. 6. We will connect her with our transplant psychology colleagues to see if she might be able to address the substance use and anxiety better. We discussed that smoking prior to allogeneic transplant will significantly increase the risk of pulmonary complications. 7. We will plan on reviewing the situation on her return with the results of the HLA typing of her siblings and to determine whether she is getting ongoing benefit from fedratinib. ER WASHER documented in this encounter Plan of Treatment Scheduled Referrals Name Type Priority Associated Diagnoses Order S chedule Transplant - Outpatient Routine Anxiety Expected: Psychiatry and Referral 10/21/2021 Psychology consult (Approxim ate), (clinic) Expires: 10/21/2022 BMT / CAR-T request Outpatient Routine Myelofibrosis Primary Ordered: for prior Referral (HCC) 07/23/2021 authorization [facility]; BMT documented as of this encounter Visit Diagnoses Diagnosis Anxiety - Primary Myelofibrosis Primary (HCC) documented in this encounter Care Teams Community Organizer Relationship Specialty Start Date End Date None Reported, Pcp PCP - General Family Medicine 02/16/21 documented as of this encounter
--- OUTSIDE RECORDS SUMMARY | 2022-05-02 12:06 | XMS_ITS | Encounter Summary ---
:1970 Author Organization [facility] Address [address] [place] [id number] Care Team Providers Name Role Phone None Reported, Pcp Primary Care Provider Unavailable Reason for Referral Outpatient (Routine) - Closed Specialty Diagnoses / Procedures Referred By Contact Refer red To Contact Hematology [facility] [address] [place] [phone] Referral ID Status Reason Start Date Expiration Date Visits Requ ested Visits Authorized [id number] Closed 06/11/2021 06/11/2022 1 1 D ASSEMBLY SUPERVISOR Encounter Details Date Type Department Care Team Description 06/11/2021 Orders Only [facility], Laurita Reyes [facility] Primary Amish [place], Nikki Baez, M. S. 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 documented as of this encounter Plan of Treatment Scheduled Referrals Name Type Priority Associated Order Schedule Diagnoses Hematology office Outpatient Referral Routine Exp ected: visit (clinic) 06/12/2021, Expires: 09/10/2022 documented as of this encounter Results Uric Acid (06/12/2021 9:28 AM FIELD ASSEMBLY SUPERVISOR) P athologist Signature Uric Acid, S 5.6 2.7 - 6.1 06/12/2021 DTL mg/dL 12:19 PM FIELD ASSEMBLY SUPERVISOR Specimen Anatomical Collection Method Collection Time Receive d Time (Source) Location / / Volume Laterality Blood (Blood, 06/12/2021 9:28 AM 06/12/20 Venous) FIELD ASSEMBLY SUPERVISOR 10:18 AM FIELD ASSEMBLY SUPERVISOR Laurita Reyes P.A.-C., M.S. LAB BLOOD ADD-ON Performing Organization Address City/[facility] Phon e Number [facility] - [address] (ABNORMAL) Phosphorus Inorganic (06/12/2021 9:28 AM FIELD ASSEMBLY SUPERVISOR) P athologist Signature Phosphorus 4.6 (H) 2.5 - 4.5 06/12/2021 DTL (Inorganic), S mg/dL 12:19 PM FIELD ASSEMBLY SUPERVISOR Specimen Anatomical Collection Method Collection Time Receive d Time (Source) Location / / Volume Laterality Blood (Blood, 06/12/2021 9:28 AM 06/12/20 Venous) FIELD ASSEMBLY SUPERVISOR 10:18 AM FIELD ASSEMBLY SUPERVISOR Laurita Reyes P.A.-C., M.S. LAB BLOOD ADD-ON Performing Organization Address City/[facility] Phon e Number [facility] - [address] (ABNORMAL) Basic Metabolic Panel (06/12/2021 9:28 AM FIELD ASSEMBLY SUPERVISOR) Analysis Performed At Patho logist Time Signature Potassium, S 5.0 3.6 - 5.2 06/12/2021 DTL mmol/L 12:19 PM FIELD ASSEMBLY SUPERVISOR Sodium, S 143 135 - 145 06/12/2021 DTL mmol/L 12:19 PM FIELD ASSEMBLY SUPERVISOR Chloride, S 100 98 - 107 06/12/2021 DTL mmol/L 12:19 PM FIELD ASSEMBLY SUPERVISOR Bicarbonate, S 33 (H) 22 - 29 06/12/2021 DTL mmol/L 12:19 PM FIELD ASSEMBLY SUPERVISOR Anion Gap 10 7 - 15 06/12/2021 DTL 12:19 PM FIELD ASSEMBLY SUPERVISOR BUN (Blood Urea 36 (H) 6 - 21 06/12/2021 DTL Nitrogen), S mg/dL 12:19 PM FIELD ASSEMBLY SUPERVISOR Creatinine 1.21 (H) 0.59 - 06/12/2021 DTL 1.04 mg/dL 12:19 PM FIELD ASSEMBLY SUPERVISOR eGFR-Non 51 (L) >=60 06/12/2021 DTL Black/ mL/min/BSA 12:19 PM FIELD ASSEMBLY SUPERVISOR Senegalese Comment: ----ADDITIONAL INFORMATION---- Estimated GFR calculated using the 2009 CKD_EPI creatinine equation. eGFR-Black/ 59 (L) >=60 mL/min/BSA 2020 12:19 PM FIELD ASSEMBLY SUPERVISOR DTL Comment: ----ADDITIONAL INFORMATION---- Estimated GFR calculated using the 2009 CKD_EPI creatinine equation. Calcium, Total, S 9.2 8.6 - 10.0 mg/dL 06/12/2021 12:1 9 PM FIELD ASSEMBLY SUPERVISOR DTL Glucose, S 141 (H) 70 - 140 mg/dL 06/12/2021 12:19 PM FIELD ASSEMBLY SUPERVISOR DTL Specimen Anatomical Collection Method Collection Time Receive d Time (Source) Location / / Volume Laterality Blood (Blood, 06/12/2021 9:28 AM 06/12/20 Venous) FIELD ASSEMBLY SUPERVISOR 10:18 AM FIELD ASSEMBLY SUPERVISOR Laurita Reyes P.A.-C., M.S. LAB BLOOD ADD-ON Performing Organization Address City/State/ZIP Code Phon e Number [facility] - [address] [place], [place] [address] [facility] [place] [address] [facility] [address] (ABNORMAL) CBC no call back, reflex T/S HGB <8 (06/12/2021 9:28 AM FIELD ASSEMBLY SUPERVISOR) [facility] gist Method Time Signature Hemoglobin 8.6 (L) 11.6 - 06/12/2021 DHPM 15.0 g/dL 9:53 AM FIELD ASSEMBLY SUPERVISOR Hematocrit 27.7 (L) 35.5 - 06/12/2021 DHPM 44.9 % 9:53 AM FIELD ASSEMBLY SUPERVISOR Erythrocytes 3.26 (L) 3.92 - 06/12/2021 DHPM 5.13 9:53 AM FIELD ASSEMBLY SUPERVISOR x10(12)/L MCV 85.0 78.2 - 06/12/2021 DHPM 97.9 fL 9:53 AM FIELD ASSEMBLY SUPERVISOR RBC Distrib Width 22.3 (H) 12.2 - 06/12/2021 DHPM 16.1 % 9:53 AM FIELD ASSEMBLY SUPERVISOR Platelet Count 109 (L) 157 - 371 06/12/2021 DHPM x10(9)/L 9:53 AM FIELD ASSEMBLY SUPERVISOR Leukocytes 3.5 3.4 - 9.6 06/12/2021 DHPM x10(9)/L 10:40 AM FIELD ASSEMBLY SUPERVISOR Comment: Results confirmed by smear. Neutrophils SeeComment 1.56 - 6.45 x10(9)/L 06/12/2021 10:40 AM FIELD ASSEMBLY SUPERVISOR DHPM Comment: Auto-diff results not valid. Se e manual differential. Specimen Anatomical Collection Method Collection Time Receive d Time (Source) Location / / Volume Laterality Blood (Blood, 06/12/2021 9:28 AM 06/12/20 9:41 Venous) FIELD ASSEMBLY SUPERVISOR AM FIELD ASSEMBLY SUPERVISOR Laurita Reyes P.A.-C., M.S. LAB BLOOD NON ADD-ON Performing Organization Address City/State/ZIP Code Phon e Number [facility] - [address] [place], [place] [address] [place] [address] [facility] [address] documented in this encounter Visit Diagnoses Diagnosis Myelofibrosis Primary (HCC) - Primary documented in this encounter Care Teams Telephone Cleaner Relationship Specialty Start Date End Date None Reported, Pcp PCP - General Family Medicine 02/16/21 documented as of this encounter
--- OUTSIDE RECORDS SUMMARY | 2022-05-02 12:06 | XMS_ITS | Encounter Summary ---
:1970 Author Organization [facility] Address [address] [place] [address] Care Team Providers Name Role Phone None Reported, Pcp Primary Care Provider Unavailable Reason for Referral Outpatient (Routine) - Closed Specialty Diagnoses / Procedures Referred By Contact Refer red To Contact Diagnoses Hypertension Pulmonary (HCC) Dyspnea On Exertion Charity Tijerina M.B.B.S. [facility] Procedures Six Minute Walk [address] [place] [phone] Referral ID Status Reason Start Date Expiration Date Visits Requ ested Visits Authorized [id number] Closed 06/29/2021 06/29/2022 1 1 ISTRY FACULTY MEMBER Reason for Visit Outpatient (Routine) - Closed Specialty Diagnoses / Procedures Referred By Contact Refer red To Contact Diagnoses Hypertension Pulmonary (HCC) Dyspnea On Exertion Charity Tijerina M.B.B.S. [facility] Procedures Six Minute Walk [address] [place] [phone] Referral ID Status Reason Start Date Expiration Date Visits Requ ested Visits Authorized [id number] Closed 06/29/2021 06/29/2022 1 1 Encounter Details Date Type Department Care Team Description 07/23/2021 Hospital Encounter Department of Cardiac Charity Tijerina, Hypertension Pulmonary (HCC); Rehabilitation in M.B.B[facility] 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 Research IRB [id number] Take by mouth. Pt is 0 03/11/2022 alisertib ([id number]) 10 unsure of what this mg DR [...] a day. documented as of this encounter Procedure Notes Flip Christensen CRAT - 07/23/2021 9:30 AM CSTAssociated Order(s): 6 MINUTE WALK Six Minute Walk Test VITAL SIGNS Height: 171.0 cm. Weight: 92.7 kg. BMI: 31.70 KG/M2. IMPRESSION/REPORT/PLAN Patient instructed on six minute walk test. Patient verbalized understanding. Patient performed test masked per COVID-19 protocol. Walk start time: 09:30 Walk stop time: 09:36 BASELINE DATA Standing BP: 112/66 Cuff size: regular Arm: left Standing HR: 88 ( radial ) Dyspnea (Ambika Scale): 0 /10 Fatigue (Ambika Scale): 3 /10 SpO2(%): 100% ( finger ) Medications taken as scheduled in last 24 hours: Yes SIX-MINUTE WALK DATA Total time walked: 6.0 minutes Total distance walked: 1,380 feet; 420.62 meters, which is 82 % for age and gender. Rest Stops: none O2 usage: none POST TEST DATA Standing BP: 128/66 Standing HR: 119 (radial) Dyspnea (Ambika Scale): 5 /10 Fatigue (Ambika Scale): 4 /10 SpO2(%): 99 % Other symptoms comments: None ISTRY FACULTY MEMBER documented in this encounter Plan of Treatment Not on filedocumented as of this encounter Procedures Procedure Name Priority Date/Time Associated Diagnosis Comme nts 6 MINUTE WALK Routine 07/23/2021 9:30 AM Hypertension Pulmonar y Results for this CHEMISTRY FACULTY MEMBER (HCC) procedure are in Dyspnea On Exertion the resu lts section. documented in this encounter Results Six Minute Walk (07/23/2021 9:30 AM CHEMISTRY FACULTY MEMBER) Specimen (Source) Anatomical Location Collection Method / Collectio n Time Received Time / Laterality Volume Narrative Flip Christensen CRAT - 07/23/2021 9: 30 AM CHEMISTRY FACULTY MEMBER Flip Christensen CRAT ? 07/23/2021 ??9:55 AM Six Minute Walk Test VITAL SIGNS Height: 171.0 cm. ??Weight: 92.7 kg. ??B MT: 31.70 KG/M2. IMPRESSION/REPORT/PLAN Patient instructed on six minute walk te st. ??Patient verbalized understanding. Patient performed test masked per COVID- 19 protocol. Walk start time: 09:30 Walk stop time: 09:36 BASELINE DATA Standing BP: 112/66 Cuff size: regular Arm: left Standing HR: 88 ( radial ) Dyspnea (Ambika Scale): 0 /10 Fatigue (Ambika Scale): 3 /10 SpO2(%): 100% ( finger ) Medications taken as scheduled in last 2 4 hours: Yes SIX-MINUTE WALK DATA Total time walked: ??6.0 minutes Total distance walked: 1,380 feet; 420.6 2 meters, which is 82 % for age and gender. Rest Stops: none O2 usage: none POST TEST DATA Standing BP: 128/66 Standing HR: 119 (radial) Dyspnea (Ambika Scale): 5 /10 Fatigue (Ambika Scale): 4 /10 SpO2(%): 99 % Other symptoms comments: None Charity Ardon CV STRESS PROCEDURES documented in this encounter Visit Diagnoses Diagnosis Hypertension Pulmonary (HCC) Dyspnea On Exertion documented in this encounter Care Teams [employer] Resource Teacher Relationship Specialty Start Date End Date None Reported, Pcp PCP - General Family Medicine 02/16/21 documented as of this encounter
--- OUTSIDE RECORDS SUMMARY | 2022-05-02 12:06 | XMS_ITS | Encounter Summary ---
:1970 Author Organization [facility] Address [address] [place] [address] Care Team Providers Name Role Phone None Reported, Pcp Primary Care Provider Unavailable Encounter Details Date Type Department Care Team Description 07/23/2021 Hospital Encounter Department of Breezy, Mistyu, Hyperte nsion Pulmonary (HCC); Laboratory Medicine M.B.B.S. 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 Research IRB [id number] Take by mouth. Pt is 0 03/11/2022 alisertib ([id number]) 10 unsure of what this mg DR [...] Name Priority Date/Time Associated Diagnosis Comme nts CYCLIC CITRULLINATED Routine 07/23/2021 8:38 Hypertension Resu lts for this PEPTIDE ABS, IGG, S AM NETWORK SECURITY CONSULTANT Pulmonary (H CC) procedure are in Dyspnea On Exertion the resu lts section. ANTINUCLEAR ABS (GEMA), Routine 07/23/2021 8:38 Hypertension Re sults for this S AM NETWORK SECURITY CONSULTANT Pulmonary (HCC) procedure are in Dyspnea On Exertion the resu lts section. documented in this encounter Results Cyclic Citrullinated Peptide Antibodies, IgG (07/23/2021 8:38 AM NETWORK SECURITY CONSULTANT) Analysis Performed At Patho logist Time Signature Cyclic <15.6 <20.0 07/24/2021 [facility] Citrullinated (Negative) 11:18 AM NETWORK SECURITY CONSULTANT Peptide Ab, S U Specimen Anatomical Collection Method Collection Time Receive d Time (Source) Location / / Volume Laterality Blood (Blood, 07/23/2021 8:38 AM 07/23/19 22 2:06 Venous) NETWORK SECURITY CONSULTANT PM NETWORK SECURITY CONSULTANT Charity Ardon LAB BLOOD ADD-ON Performing Organization Address City/[facility]/ZIP Code Phon e Number [facility] [address]IVE [address] TORRES [place] [phone] [facility] [facility] [place] [address] Laboratory Medicine and Pathology [address] [place] [address] Dr. TORRES GEMA (Antinuclear Antibodies) (07/23/2021 8:38 AM NETWORK SECURITY CONSULTANT) P athologist Signature Antinuclear Ab, 0.3 <=1.0 07/23/2021 [facility] S (Negative) 9:34 PM NETWORK SECURITY CONSULTANT U Comment: ----ADDITIONAL INFORMATION---- Method: Enzyme-linked immunoassay using HEp-2 nuclear extract supplemented with purified antig ens. Specimen Anatomical Collection Method Collection Time Receive d Time (Source) Location / / Volume Laterality Blood (Blood, 07/23/2021 8:38 AM 07/23/19 22 2:06 Venous) NETWORK SECURITY CONSULTANT PM NETWORK SECURITY CONSULTANT Charity AlexandraSZahraa LAB BLOOD ADD-ON Performing Organization Address City/[facility]/ZIP Code Phon e Number [facility] [address] MELISSA [place] [phone] SUPPORT [facility] [place] [address] Laboratory Medicine and Pathology [address] [place] [address] Dr. TORRES documented in this encounter Visit Diagnoses Diagnosis Hypertension Pulmonary (HCC) Dyspnea On Exertion documented in this encounter Care Teams Wrecking Crane Engine Operator Relationship Specialty Start Date End Date None Reported, Pcp PCP - General Family Medicine 02/16/21 documented as of this encounter
--- OUTSIDE RECORDS SUMMARY | 2022-05-02 12:06 | XMS_ITS | Encounter Summary ---
:1970 Author Organization [facility] Address [address] [place] [address] Care Team Providers Name Role Phone None Reported, Pcp Primary Care Provider Unavailable Reason for Referral Outpatient (Routine) - Authorized Specialty Diagnoses / Procedures Referred By Contact Refer red To Contact Diagnoses Hypertension Pulmonary (HCC) Dyspnea On Exertion Charity Tijerina M.B.BZahraaS. [facility] Procedures NM Lung Perfusion Only NM Lung Ventilation and Perfusion [address] [place] [phone] Referral ID Status Reason Start Date Expiration Date Visits V isits Requested Authorized [id number] Authorized 06/29/2021 06/29/2022 6 6 EACH PROFESSIONAL Outpatient (Routine) - Authorized Specialty Diagnoses / Procedures Referred By Contact Refer red To Contact Sleep Medicine Diagnoses Hypertension Pulmonary (HCC) Dyspnea On Exertion Charity Tijerina M.B.B.S. [facility] [address] [place] [phone] Referral ID Status Reason Start Expiration Visits Visits Date Date Requested Authorized [id number] Authorized Specialty 06/29/2022 1 1 Services 1 Required EACH PROFESSIONAL Outpatient (Routine) - Closed Specialty Diagnoses / Procedures Referred By Contact Refer red To Contact Diagnoses Hypertension Pulmonary (HCC) Dyspnea On Exertion Charity Tijerina M.B.BZahraaS. [place] [facility] Procedures Six Minute Walk [address] [place] [address] Referral ID Status Reason Start Date Expiration Date Visits Requ ested Visits Authorized [id number] Closed 06/29/2021 06/29/2022 1 1 EACH PROFESSIONAL Reason for Visit Appointment Request (Routine) - Closed Specialty Diagnoses / Procedures Referred By Contact Refer red To Contact Cardiovascular Disease Diagnoses Hypertension Pulmonary (HCC) Referral ID Status Reason Start Date Expiration Date Visits Requ ested Visits Authorized [id number] Closed 06/11/2021 06/11/2022 1 1 Encounter Details Date Type Department Care Team Description 06/29/2021 Comprehensive Visit Department of [place] Pulmonary (HCC) (Primary Dx); Cardiovascular Charity, Dyspnea On Ex ertion; Medicine in [facility].AundreaB.S. Regurgitation Tricuspid; [place] 200 1st Failure Heart Right (HCC) [address] [facility] [address] [place] [phone] Social History Tobacco Use Types Packs/Day Years [...] at Date Recorded Female 07/24/2021 11:03 AM OUTREACH PROFESSIONAL documented as of this encounter Last Filed Vital Signs Vital Sign Reading Time Taken Comments Blood Pressure 111/76 06/29/2021 12:58 PM OUTREACH PROFESSIONAL Pulse 129 06/29/2021 12:58 PM OUTREACH PROFESSIONAL Temperature 35.8 ??C (96.4 ??F) 06/29/2021 12:58 PM OUTREACH PROFESSIONAL Respiratory Rate - - Oxygen Saturation 98% 06/29/2021 12:58 PM OUTREACH PROFESSIONAL Inhaled Oxygen Concentration - - Weight 92.7 kg (204 lb 5.9 oz) 06/29/2021 12:58 PM OUTREACH PROFESSIONAL Height 171 cm (5' 7.32) 06/29/2021 12:58 PM OUTREACH PROFESSIONAL Body Mass Index 31.7 06/29/2021 12:58 PM OUTREACH PROFESSIONAL documented in this encounter Consult Notes Charity Tijerina M.B.B.S. - 06/29/2021 1:00 PM CST PULMONARY HYPERTENSION CONSULT NOTE SUBJECTIVE REASON FOR CONSULT Pulmonary hypertension. HISTORY OF PRESENT ILLNESS Mrs. Dobbs is a pleasant 51-year-old female with a history of myelofibrosis diagnosed in August 2015 after she developed severe left upper quadrant abdominal pain and was found to have marked splenomegaly. She has since been treated with chemotherapy and was recently hospitalized for heart failure on June 06 and was found to have severe tricuspid regurgitation and moderately reduced RV function. She had gained about 30-40 pounds of weight with shortness of breath, orthopnea, abdominal distention, and ascites. She was diuresed during the hospitalization and initiated on torsemide 20 mg b.i.d. She diuresed well and was discharged home. Since discharge, she has noticed significant improvement in her breathing. She is now able to do activities such as cooking, light vacuuming, but she does have to stop a few times. Prior to the hospitalization, she could only do minimal activities such as bathing and was pretty sedentary and spent her day mostly watching TV. About a year ago, she could do some activities such as cooking, laundry, vacuuming, and was faster compared to now. Overall, she appears to be still quite limited and can only walk a quarter of a block before getting short of breath.She denies any chest pain or pressure, did have some chest discomfort prior to the recent hospitaliza tion when she had gained the fluid weight. She has not had any episodes of chest pressure since she was diuresed during the last hospitalization. She also denies any symptoms suggestive of orthopnea orparoxysmal nocturnal dyspnea. She continues to have some lower extremity edema. She monitors her weight every day. She is not following fluid restriction but tried to follow salt restriction. MEDICAL HISTORY Pancytopenia. Myelofibrosis. Severe tricuspid regurgitation. Right heart failure FAMILY HISTORY No family history of pulmonary hypertension. SOCIAL HISTORY A [id number]-bedf smoking history, quit in 2012, rare alcohol use. Smokes marijuana every night. Deniesuse of fen-phen or other weight loss medication. CURRENT MEDICATIONS Lorazepam. Morphine. Oxycodone. Allopurinol. Folic acid. Torsemide 20 mg b.i.d. OBJECTIVE PHYSICAL EXAMINATION Vital Signs: Blood pressure 111/76, pulse rate 129. General: Sitting comfortably, not in acute distress. Neck: Jugular venous pressure is elevated to 9 cm water with a prominent V wave. Kussmaul sign present. Lungs: Breathing comfortably on room air, clear to auscultation bilaterally. Heart: Regular rate and rhythm, normal S1, prominent P2. A grade 3/6 holosystolic murmur auscultatedat lower sternal border. No rubs or gallops appreciated. Abdomen: Soft, liver margin ++. Spleen size ++. Extremities: Warm, 1 to 2+ pedal edema up to mid legs. DIAGNOSTICS Her labs are significant for hemoglobin 8.6, platelets 109, white count 3.6, creatinine 1.2. Total protein was 5.6 back on June 11 with albumin 4.1 and NT-proBNP was elevated to 10,489. Her echocardiogram was reviewed and shows a small circumferential pericardial effusion. She has normal LV chamber size with ejection fraction 59%. Moderate to severely enlarged RV with moderately reduced systolic function. Estimated RVSP was 62 mmHg. There was severe tricuspid regurgitation and incomplete tricuspid valve coaptation. ASSESSMENT / PLAN #1 Pulmonary hypertension in the setting of myelofibrosis (group 5)/NYHA functional class III #2 Chronic RV failure #3 Severe tricuspid regurgitation due to 1. #4 Myelofibrosis #5 Former smoker #6 Obstructive sleep apnea Mrs. Dobbs is a 51-year-old female with a history of myelofibrosis, and pancytopenia had recent hospitalization for right heart failure, and found to have severe tricuspid regurgitation and elevated RVSP of 62 mmHg. I suspect she has Pulmonary hypertension group 5 due to myelofibrosis which led to right ventricular enlargement and dysfunction and secondary tricuspid regurgitation. Her recent hospitalization was for right ventricular failure. To complete the workup of pulmonary hypertension, I have ordered a 6-minute walk test, GEMA, CCP, V/Q scan, and PFTs. I have also put in a consultation to Sleep Medicine for abnormal overnight oximetry. Besides that, we have scheduled her for a right heart catheterization, and following these tests, a follow-up visit with me. Myelofibrosis associated PH is complex and may be due to associated left-heart disease (diastolic dysfunction and HFpEF), chronic pulmonary thromboemboli, precapillary remodeling due to vascular endothelial growth factor or certain Tyrosine Kinase inhibitors. I suspect she will have significant precapillary pulmonary hypertension and may need pulmonary vasodilator therapy. I discussed the different types of agents available includingoral, inhalational, and subcutaneous/intravenous, and the agent we use will depend on the results of right heart catheterization. The PH associated with myelofibrosis can improve with treatment of the hematological disorder, she was on Ruxolitinib briefly and had been under trial with GSK-3 inhibitor,and currently considered for bone marrow transplant. We will continue to follow up with her to evaluate response of myelofibrosis therapies on PH. She appears mildly volume overloaded on exam but has not taken her diuretic today. I recommend continuing diuretic, daily weight measurements, and salt and fluid restriction. I answered all of the patient's questions to the best of my knowledge, and she agrees to the plan. Nasrin ArellanoS. CT CT Job ID: [id number] EACH PROFESSIONAL documented in this encounter Plan of Treatment Scheduled Referrals Name Type Priority Associated Diagnoses Order S [facility] Sleep Medicine - Outpatient Referral Routine Hypertension Expe cted: General consult Pulmonary (HCC) 06/29/2021 (clinic) Dyspnea On Exertion (Approxi mate), Expires: 09/27/2022 documented as of this encounter Results NM Lung Perfusion Only (08/01/2021 9:58 AM OUTREACH PROFESSIONAL) Anatomical Region Laterality Modality Chest, Nuclear Medicine RST LOS, Nuclear Medicine ARZ N/A Nuclear Medicine LOS, Nuclear Medicine FLA LOS, Nuclear Medicine Specimen (Source) Anatomical Collection Method Collection Time Re ceived Time Location / / Volume Laterality 08/01/2021 9:55 AM OUTREACH PROFESSIONAL Impressions 08/01/2021 10:11 AM OUTREACH PROFESSIONAL No evidence of acute or chronic pulmonary embolism on planar perfusion imaging. Narrative 08/01/2021 10:11 AM OUTREACH PROFESSIONAL EXAM: ??NM LUNG PERFUSION ONLY RADIOPHARMACEUTICAL/MEDS: Route: [...] embolism on planar perfusion imaging. Charity Ardon IMG NM PROCEDURES Six Minute Walk (07/23/2021 9:30 AM OUTREACH PROFESSIONAL) Specimen (Source) Anatomical Location Collection Method / Collectio n Time Received Time / Laterality Volume Narrative Flip Christensen CRAT - 07/23/2021 9: 30 AM OUTREACH PROFESSIONAL Flip Christensen CRAT ? 07/23/2021 ??9:55 AM Six Minute Walk Test VITAL SIGNS Height: 171.0 cm. ??Weight: 92.7 kg. ??B MD: 31.70 KG/M2. IMPRESSION/REPORT/PLAN Patient instructed on six [...] 99 % Other symptoms comments: None Charity AlexandraSZahraa CV STRESS PROCEDURES Pulmonary Function Tests (07/23/2021 8:59 AM OUTREACH PROFESSIONAL) Analysis Performed At [facility] Time Signature VC MAX POST 3.46 L 07/23/2021 [facility] 1:13 PM OUTREACH PROFESSIONAL SUITE PostFVC 3.44 L 07/23/2021 [facility] 1:13 PM OUTREACH PROFESSIONAL SUITE PostFEV1 2.68 L 07/23/2021 [facility] 1:13 PM OUTREACH PROFESSIONAL SUITE FEV1/FVC POST 77.77 % 07/23/2021 [facility] 1:13 PM OUTREACH PROFESSIONAL SUITE FEF 25-75 % 2.37 L/s 07/23/2021 [facility] POST 1:13 PM OUTREACH PROFESSIONAL SUITE PEF POST 5.45 L/s 07/23/2021 [facility] 1:13 PM OUTREACH PROFESSIONAL SUITE FET POST 8.41 sec 07/23/2021 [facility] 1:13 PM OUTREACH PROFESSIONAL SUITE DLCO SINGLE 10.75 ml/(min*mm 07/23/2021 [facility] BREATH POST Hg) 1:13 PM OUTREACH PROFESSIONAL SUITE DLCOC SINGLE 14.34 ml/(min*mm 07/23/2021 [facility] BREATH POST Hg) 1:13 PM OUTREACH PROFESSIONAL SUITE HB 7.40 g(Hb)/dL 07/23/2021 [facility] 1:13 PM OUTREACH PROFESSIONAL SUITE VA SINGLE 5.33 L 07/23/2021 [facility] BREATH POST 1:13 PM OUTREACH PROFESSIONAL SUITE L0UnaScxq 99.00 % 07/23/2021 [facility] 1:13 PM OUTREACH PROFESSIONAL SUITE PulseRest 80.00 1/min 07/23/2021 [facility] 1:13 PM OUTREACH PROFESSIONAL SUITE VC MAX PRE 3.30 L 07/23/2021 [facility] 1:13 PM OUTREACH PROFESSIONAL SUITE FVC 3.30 L 07/23/2021 [facility] 1:13 PM OUTREACH PROFESSIONAL SUITE FEV1 2.42 L 07/23/2021 [facility] 1:13 PM OUTREACH PROFESSIONAL SUITE FEV1/FVC 73.26 % 07/23/2021 [facility] 1:13 PM OUTREACH PROFESSIONAL SUITE DIO97-41% 1.81 L/s 07/23/2021 [facility] 1:13 PM OUTREACH PROFESSIONAL SUITE PEF PRE 5.13 L/s 07/23/2021 [facility] 1:13 PM OUTREACH PROFESSIONAL SUITE FET PRE 8.44 sec 07/23/2021 [facility] 1:13 PM OUTREACH PROFESSIONAL SUITE SUBSTANCE POST Albuterol 07/23/2021 [facility] 1:13 PM OUTREACH PROFESSIONAL SUITE DOSE POST 2 Puff 07/23/2021 [facility] 1:13 PM OUTREACH PROFESSIONAL SUITE % PRED VC MAX 89 % % 07/23/2021 [facility] 1:13 PM OUTREACH PROFESSIONAL SUITE FVC% 89 % % 07/23/2021 [facility] 1:13 PM OUTREACH PROFESSIONAL SUITE FEV1% 83 % % 07/23/2021 [facility] 1:13 PM OUTREACH PROFESSIONAL SUITE % PRED 92 % % 07/23/2021 [facility] FEV1/FVC 1:13 PM OUTREACH PROFESSIONAL SUITE % PRED FEF 66 % % 07/23/2021 [facility] 25-75% 1:13 PM OUTREACH PROFESSIONAL SUITE % PRED PEF 82 % % 07/23/2021 [facility] 1:13 PM OUTREACH PROFESSIONAL SUITE PRED VC MAX 3.69 07/23/2021 [facility] 1:13 PM OUTREACH PROFESSIONAL SUITE PRED FVC 3.69 07/23/2021 [facility] 1:13 PM OUTREACH PROFESSIONAL SUITE PRED FEV 1 2.92 07/23/2021 [facility] 1:13 PM OUTREACH PROFESSIONAL SUITE PRED FEV1/FVC 79.8 07/23/2021 [facility] 1:13 PM OUTREACH PROFESSIONAL SUITE PRED FEF 2.73 07/23/2021 [facility] 25-75% 1:13 PM OUTREACH PROFESSIONAL SUITE PRED PEF 6.2 07/23/2021 [facility] 1:13 PM OUTREACH PROFESSIONAL SUITE PRED DLCO 22.7 07/23/2021 [facility] 1:13 PM OUTREACH PROFESSIONAL SUITE PRED DLCOc 22.7 07/23/2021 [facility] 1:13 PM OUTREACH PROFESSIONAL SUITE Specimen (Source) Anatomical Collection Method Collection Time Re ceived Time Location / / Volume Laterality 07/23/2021 8:59 AM OUTREACH PROFESSIONAL Narrative This result has an attachment that is no t available. Charity ArringtonB.S. PFT ORDERABLES Performing Organization Address City/State/ZIP Code Phon e Number [facility] [address] Cyclic Citrullinated Peptide Antibodies, IgG (07/23/2021 8:38 AM OUTREACH PROFESSIONAL) Analysis Performed At Patho logist Time Signature Cyclic <15.6 <20.0 07/24/2021 [facility] Citrullinated (Negative) 11:18 AM OUTREACH PROFESSIONAL Peptide Ab, S U Specimen Anatomical Collection Method Collection Time Receive d Time (Source) Location / / Volume Laterality Blood (Blood, 07/23/2021 8:38 AM 07/23/19 2:06 Venous) OUTREACH PROFESSIONAL PM OUTREACH PROFESSIONAL Charity HayesB.B.S. LAB BLOOD ADD-ON Performing Organization Address City/State/ZIP Code Phon e Number [facility] [address] [facility] [place] [phone] [address] [facility] [place] [address] Laboratory Medicine and Pathology [address] [place] [address] Dr. TORRES GEMA (Antinuclear Antibodies) (07/23/2021 8:38 AM OUTREACH PROFESSIONAL) athologist Signature Antinuclear Ab, 0.3 <=1.0 07/23/2021 [facility] S (Negative) 9:34 PM OUTREACH PROFESSIONAL U Comment: ----ADDITIONAL INFORMATION---- Method: Enzyme-linked immunoassay using HEp-2 nuclear extract supplemented with purified antig ens. Specimen Anatomical Collection Method Collection Time Receive d Time (Source) Location / / Volume Laterality Blood (Blood, 07/23/2021 8:38 AM 07/23/19 2:06 Venous) OUTREACH PROFESSIONAL PM OUTREACH PROFESSIONAL Charity Ardon LAB BLOOD ADD-ON Performing Organization Address City/State/ZIP Code Phon e Number [place] [id number] [place] [phone] [address] [facility] [place] [address] Laboratory Medicine and Pathology [address] [place] [address] Dr. TORRES documented in this encounter Visit Diagnoses Diagnosis Hypertension Pulmonary (HCC) - Primary Dyspnea On Exertion Regurgitation Tricuspid Failure Heart Right (HCC) Hypertension Pulmonary (HCC) Dyspnea On Exertion Hypertension Pulmonary (HCC) Dyspnea On Exertion documented in this encounter Additional Health Concerns Infection Onset Date Last Indicated Resolved Time COVID19 Pending 06/29/2021 07/15/2021 07/15/2021 2:24 PM OUTREACH PROFESSIONAL documented as of this encounter Care Teams Business Development Agent Relationship Specialty Start Date End Date None Reported, Pcp PCP - General Family Medicine 02/16/21 documented as of this encounter
--- OUTSIDE RECORDS SUMMARY | 2022-05-02 12:06 | XMS_ITS | Encounter Summary ---
:1970 Author Organization [facility] Address [address] [place] [address] Care Team Providers Name Role Phone None Reported, Pcp Primary Care Provider Unavailable Reason for Visit Reason Comments Tooth extraction Encounter Details Date Type Department Care Team Description 07/18/2021 Clinical Communication Division of [facility], Tooth extraction Hematology in [place], [place] M.B.B.S. 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 Patient is there now and the oral surgery office is calling to make sure there isn't a specific protocol to follow Call back number is [phone] Thank you, Claudia Hematology [facility] GENER[facility] documented in 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 Care Teams Ammonia Print Operator Relationship Specialty Start Date End Date None Reported, Pcp PCP - General Family Medicine 02/16/21 documented as of this encounter
--- OUTSIDE RECORDS SUMMARY | 2022-05-02 12:06 | XMS_ITS | Encounter Summary ---
:1970 Author Organization [facility] Address [address] [place] [address] Care Team Providers Name Role Phone None Reported, Pcp Primary Care Provider Unavailable Reason for Referral Outpatient (Routine) - Closed Specialty Diagnoses / Procedures Referred By Contact Refer red To Contact [facility] Katrina Higgins.B.S. [address] [place] [phone] Referral ID Status Reason Start Date Expiration Date Visits Requ ested Visits Authorized [id number] Closed 07/02/2021 07/02/2022 1 1 DIP PLATING SUPERVISOR Reason for Visit Appointment Request (Routine) - Closed Specialty Diagnoses / Procedures Referred By Contact Refer red To Contact Hematology Referral ID Status Reason Start Date Expiration Date Visits Requ ested Visits Authorized [id number] Closed 06/06/2021 06/06/2022 1 1 Encounter Details Date Type Department Care Team Description 07/02/2021 Office Visit Division of Hematology Xuan, Myelo fibrosis Primary in [facility], (HCC) (Primary Dx) Bob Higgins.B.S. [address] [place] [address] 200 [place] [phone] Social History Tobacco Use Types Packs/Day Years [...] Date Recorded Female 07/24/2021 11:03 AM HOT DIP PLATING SUPERVISOR documented as of this encounter Progress Notes Janusz Govea M.B.B.S. - 07/02/2021 1:30 PM CST SUBJECTIVE CHIEF COMPLAINT/REASON FOR VISIT Primary myelofibrosis. HISTORY OF PRESENT ILLNESS Ms. Dobbs is a pleasant 51-year-old lady with primary myelofibrosis. Prior treatments have includedJakafi, Alisertib as part of a clinical trial, 9-ING study. She had been on CLAIRE but continued to be transfusion-dependent. I had seen her in clinic on 06/06 buthad to be hospitalized on the Hem 2 Service because of increasing lower extremity edema. She was found to have pulmonary hypertension and required significant amount of diuresis as an inpatient. She has done well after discharge from the hospital in terms of her fluid balance, except that she ran out of her torsemide prescription since the last 2 days. She started taking fedratinib 200 mg daily on 06/25, so she has been on therapy for a week. She continues to have discomfort in her spleen. Night sweats have improved, however. She reports to me that since yesterday she developed achiness in her body and does not feel well. She is afebrile, however, and has no other symptoms to account for her achiness. OBJECTIVE PHYSICAL EXAMINATION Vital Signs: Height is 171 cm. Weight is 92.7 kg. Temperature 35.8. Pulse 129, blood pressure 111/76. General: Is walking. Is up and about, which is an improvement to her prior performance status. DIAGNOSTICS Laboratory studies reviewed. She has been requiring RBC transfusions on a weekly basis. 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 She has been tolerating treatment. We will planto continue on that for now and to see if she has improvement in her spleen and constitutional symptoms. 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 Nevertheless, I have her set up for a BMT consultation on 07/23/2021, and I plan to see her at that time as well. #2 Pulmonary hypertension She is on torsemide to 20 mg twice daily. I have sent in a prescription to the [facility] pharmacy.She will continue on that. She is also being followed up closely with our Cardiology colleagues and is being set up for cardiopulmonary rehab. #3 Followup She will continue with weekly CBC checks at [place]. I plan to see her in clinic on 07/23/2021. Nasrin ForemanS. CT CT Job ID: [id number] DIP PLATING SUPERVISOR documented in this encounter Plan of Treatment Scheduled Referrals Name Type Priority Associated Order Schedule Diagnoses Hematology office Outpatient Referral Routine Exp ected: visit (clinic) 07/23/2021, Expires: 09/30/2022 documented as of this encounter Visit Diagnoses Diagnosis Myelofibrosis Primary (HCC) - Primary documented in this encounter Additional Health Concerns Infection Onset Date Last Indicated Resolved Time COVID19 Pending 06/29/2021 07/15/2021 07/15/2021 2:24 PM HOT DIP PLATING SUPERVISOR documented as of this encounter Care Teams Sort Supervisor Relationship Specialty Start Date End Date None Reported, Pcp PCP - General Family Medicine 02/16/21 documented as of this encounter
--- OUTSIDE RECORDS SUMMARY | 2022-05-02 12:06 | XMS_ITS | Encounter Summary ---
:1970 Author Organization [facility] Address [address] [place] [address] Care Team Providers Name Role Phone None Reported, Pcp Primary Care Provider Unavailable Encounter Details Date Type Department Care Team Description 07/02/2021 Clinical Communication Division of Hematology [facility] in [facility] Ronaldo.B.S. [address] [place] [address] [place] [phone] Social History Tobacco Use Types Packs/Day Years [...] at Date Recorded Female 07/24/2021 11:03 AM LPN RN documented as of this encounter Miscellaneous Notes Telephone Encounter - Mary Ann Shaver R.N. - 07/02/2021 12:54 PM LPN RN Patient is resting in exam room stating she hasn't felt well since yesterday when she began feeling fatigued and wore down. She states she is having muscle aches all over. She feels she may be dehydrated as she has been taking fluid pills recently. She states she just taken an oxycodone to help withthe achiness. She is tearful but very talkative. T-98.1 B/p 113/76 P-84 She states she feels ok wiating to speak with Dr. Govea and she is accompanied by her spouse. They agreed to contact the desk staff if they need anything prior to Dr. Govea meeting with patient. RN documented in 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 Additional Health Concerns Infection Onset Date Last Indicated Resolved Time COVID19 Pending 06/29/2021 07/15/2021 07/15/2021 2:24 PM LPN RN documented as of this encounter Care Teams Buffing Machine Tender Relationship Specialty Start Date End Date None Reported, Pcp PCP - General Family Medicine 02/16/21 documented as of this encounter
--- OUTSIDE RECORDS SUMMARY | 2022-05-02 12:06 | XMS_ITS | Encounter Summary ---
:1970 Author Organization [facility] Address [address] [place] [address] Care Team Providers Name Role Phone None Reported, Pcp Primary Care Provider Unavailable Encounter Details Date Type Department Care Team Description 06/11/2021 Orders Only Department of Lanette Loera on Tricuspid (Primary Dx); Cardiovascular Medicine Dewayne Elizondo Fluid Overload Unspecified in [facility] [place] [address] [facility] [address] [place] [phone] Social History Tobacco Use Types Packs/Day Years [...] at Date Recorded 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
--- OUTSIDE RECORDS SUMMARY | 2022-05-02 12:06 | XMS_ITS | Encounter Summary ---
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
--- OUTSIDE RECORDS SUMMARY | 2022-05-02 12:07 | XMS_ITS | Encounter Summary ---
:1970 Author Organization [facility] Address [address] [place] [address] Care Team Providers Name Role Phone None Reported, Pcp Primary Care Provider Unavailable Reason for Visit Reason Comments Allopurinol Encounter Details Date Type Department Care Team Description 03/14/2021 Clinical Communication Division of Hematology Janusz Govea Allopurinol in [facility] milton ArringtonB.S. 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 - 03/14/2021 2:30 PM CDT I spoke with Gian to let him know we sent a refill for the patients allopurinol to [facility] in [place] as requested. Telephone Encounter - Aleyda Meehan - 03/14/2021 11:55 AM CDT Name of caller: Gian Dobbs Do we have a valid auth to speak with caller? yes If so, date of authorization: 03/04/2016. ?? Reason for call: Spouse is calling to see if Jennifer could get her Allopurinol refilled. They called [facility] and they directed them to call us. ?? Call back number is [phone] Is it okay to leave a voicemail on answering machine? yes. ? Thank you, Aleyda Hematology [facility] MAA documented in 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 Care Teams Type Photography Supervisor Relationship Specialty Start Date End Date None Reported, Pcp PCP - General Family Medicine 02/16/21 documented as of this encounter
--- OUTSIDE RECORDS SUMMARY | 2022-05-02 12:07 | XMS_ITS | Encounter Summary ---
:1970 Author Organization [facility] Address [address] [place] [address] Care Team Providers Name Role Phone None Reported, Pcp Primary Care Provider Unavailable Encounter Details Date Type Department Care Team Description 06/06/2021 Hospital Encounter Department of Gangat, Myelofib rosis Primary ([facility]); Laboratory Medicine [facility], Clinical Research Exam and Pathology, [place] [address] [address] [place], [place] [address] [place] [address] [place], [place] [phone] (Work) [phone] Social History Tobacco Use Types Packs/Day Years [...] at Date Recorded Female 07/24/2021 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 Do not start until instructed. fedratinib (INREBIC) 100 Take 2 capsules (200 60 capsule 2 1 08/11/2020 08/15/2021 mg capsule mg total) by mouth daily. Do not start until instructed. ibuprofen (ADVIL,MOTRIN) Take 400 mg by mouth 0 06/11/2021 200 mg tablet as needed for pain. morphine (MSIR) 15 mg Take 15 mg by mouth 0 03/11/2022 tablet at bedtime. oxyCODONE (OXY-IR) 5 mg Take 2 capsules by 0 02/1203/18/2022 immediate release mouth every 4 (four) capsule hours as needed. documented as of this encounter Progress Notes Janusz Govea M.B.B.S. - 06/06/2021 11:51 AM CST SUBJECTIVE CHIEF COMPLAINT/REASON FOR VISIT Primary myelofibrosis. HISTORY OF PRESENT ILLNESS Mrs. 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 Prior therapies have included Alisertib as partof a clinical trial and 9 -ING study. Earlier this year, she received 3 cycles of therapy and came off study on 08/03/2020 because of lack of benefit. The main issues have been symptomatic splenomegaly for which she is on narcotics, and transfusion- dependent anemia. She has been maintained on erythropoiesis-stimulating agents, under the care of Dr. Cr. She contacted me last week because of extreme pain, increasing transfusion needs, and lower extremity edema. I had her see General Surgery for consultation regarding consideration of splenectomy. During my visit today, she reports to me that she has been receiving blood transfusions on a weekly basis. Her hemoglobin is down to 5.3 g/dL. Today, she is in a wheelchair, tachycardic. She has decreased appetite related to the massive splenomegaly. In addition, she has significant lower extremity edema without an explanation at this time. OBJECTIVE PHYSICAL EXAMINATION Vital Signs: Temperature 36.5, pulse 120, blood pressure 108/73. General : ECOG is 3. Lungs: Clear to auscultation. Heart: Tachycardic. Abdomen: Significantly distended with a massive spleen. Extremities: Lower extremity 3+ edema, and the extremities are taut. DIAGNOSTICS Laboratory studies reviewed. 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 I have put in a consult for BMT which is scheduled for July. In the meantime, I plan to trial fedratinib. I am working with Dr. Knox who has had a chance to visit with the patient, and we are sending in a prescription for fedratinib 200 mg daily. We will need a baseline thiamine level, amylase and lipase checked prior to that. We also plan to obtain a bone marrow aspirate and biopsy since ithas been a year since the last evaluation. #2 Transfusion-dependent anemia She will receive a red blood cell transfusion today with Lasix in between. #3 Hyperuricemia She is on allopurinol. #4 Lower extremity edema She will require an ultrasound of the lower extremities to rule out DVT in addition to a Doppler ultrasound of the abdomen to make sure there are no intraabdominal thromboses. An echocardiogram should be obtained as well. #5 Debility Given her medical situation at this time, I have recommended admission, and I plan to admit her to the Hem 2 Service to expediate the workup. Once she is discharged from the hospital, we will need to set up a followup with a local oncologist other than Dr. Cr so that she is able to establish care locally as well. #6 Followup I will see her back in a month's time. Evy Foreman. CT CT Job ID: [id number]/carmen A SYSTEM FREIGHT CAR CLEANER documented in this encounter Plan of Treatment Not on filedocumented as of this encounter Procedures Procedure Name Priority Date/Time Associated Diagnosis Comme nts SPSMA RESULT Routine 06/06/2021 9:27 Myelofibrosis Primary Res ults for this AM DELTA SYSTEM FREIGHT CAR CLEANER (HCC) procedure are i n the results section. CBC WITH Routine 06/06/2021 9:27 Myelofibrosis Primary Res ults for this DIFFERENTIAL, B AM DELTA SYSTEM FREIGHT CAR CLEANER (HCC) procedure ar e in the results section. TYPE AND SCREEN Routine 06/06/2021 9:27 Myelofibrosis Primary Results for this AM DELTA SYSTEM FREIGHT CAR CLEANER (HCC) procedure are i n the results section. LACTATE DEHYDROGENASE Routine 06/06/2021 9:27 Myelofibrosis Pr imary Results for this (LD), S AM DELTA SYSTEM FREIGHT CAR CLEANER (HCC) procedure are i n the results section. COMPREHENSIVE Routine 06/06/2021 9:27 Myelofibrosis Primary Re sults for this METABOLIC PANEL, S/P AM DELTA SYSTEM FREIGHT CAR CLEANER (HCC) procedu re are in the results section. [facility] RESEARCH ORDER, Routine 06/06/2021 9:26 Clinical Research Results for this B AM DELTA SYSTEM FREIGHT CAR CLEANER Exam procedure are i n the results section. documented in this encounter Results (ABNORMAL) LD (Lactate Dehydrogenase) (06/06/2021 9:27 AM DELTA SYSTEM FREIGHT CAR CLEANER) [facility] gist Method Time Signature Lactate 640 (H) 122 - 222 06/06/2021 DTL Dehydrogenase U/L 10:28 AM DELTA SYSTEM FREIGHT CAR CLEANER (LD), S Specimen Anatomical Collection Method Collection Time Receive d Time (Source) Location / / Volume Laterality Blood (Blood, 06/06/2021 9:27 AM 06/06/20 21 Venous) DELTA SYSTEM FREIGHT CAR CLEANER 10:08 AM DELTA SYSTEM FREIGHT CAR CLEANER Janusz Ardon LAB BLOOD NON ADD-ON Performing Organization Address City/[facility] Phon e Number [facility] - [address] [place] [address] [address] [facility] [place] [address] Laboratories-[address] Type and Screen (with reflex Antibody ID) (06/06/2021 9:27 AM DELTA SYSTEM FREIGHT CAR CLEANER) [facility] Method Time Signature ABORh A Pos Not 06/06/2021 ETRM applicable 10:18 AM DELTA SYSTEM FREIGHT CAR CLEANER Antibody Negative Negative 06/06/2021 ETRM Screen 10:29 AM DELTA SYSTEM FREIGHT CAR CLEANER Type & Screen 06/09/2021 06/06/2021 ETRM Expiration 23:59 10:18 AM DELTA SYSTEM FREIGHT CAR CLEANER Testing Deidra DEFAULT 06/06/2021 ETRM Location 9:50 AM DELTA SYSTEM FREIGHT CAR CLEANER Specimen Anatomical Collection Method Collection Time Receive d Time (Source) Location / / Volume Laterality Blood (Blood, 06/06/2021 9:27 AM 06/06/20 9:50 Venous) DELTA SYSTEM FREIGHT CAR CLEANER AM DELTA SYSTEM FREIGHT CAR CLEANER Janusz Ardon LAB BLOOD BANK TEST ORDERABL ES Performing Organization Address [facility] Phon e Number [facility] - [address] [place] [address] [address] [facility] [place] [address] Ltac, Located Within [facility]-[address] (ABNORMAL) Morphology Evaluation (Special Smear) (06/06/2021 9:27 AM DELTA SYSTEM FREIGHT CAR CLEANER) [facility] Method Time Signature Neutrophilic Segs 80 (H) 50 - 75 % 06/06/2021 DHPM and Bands 11:07 AM DELTA SYSTEM FREIGHT CAR CLEANER Lymphocytes 6 (L) 18 - 42 % 06/06/2021 DHPM 11:07 AM DELTA SYSTEM FREIGHT CAR CLEANER Monocytes 4 2 - 11 % 06/06/2021 DHPM 11:07 AM DELTA SYSTEM FREIGHT CAR CLEANER Metamyelocytes 3 (H) <1 % 06/06/2021 DHPM 11:07 AM DELTA SYSTEM FREIGHT CAR CLEANER Myelocytes 6 (H) <0.5 % 06/06/2021 DHPM 11:07 AM DELTA SYSTEM FREIGHT CAR CLEANER Blasts 1 (H) <1 % 06/06/2021 DHPM 11:07 AM DELTA SYSTEM FREIGHT CAR CLEANER Nucleated RBC 3 /100 WBC 06/06/2021 DHPM 11:07 AM DELTA SYSTEM FREIGHT CAR CLEANER Manual Absolute 2.64 1.56 - 06/06/2021 DHPM Neutrophil Count 6.45 11:07 AM DELTA SYSTEM FREIGHT CAR CLEANER x10(9)/L Comment: ----ADDITIONAL INFORMATION---- The manual absolute neutrophil count is derived from a manual differential count and therefore is not exactly comparable to the automated absolute halie trophil count. Reviewed by: Liz 06/06/2021 11:07 AM DELTA SYSTEM FREIGHT CAR CLEANER [facility] Specimen Anatomical Collection Method Collection Time Receive d Time (Source) Location / / Volume Laterality Blood (Blood, 06/06/2021 9:27 AM 06/06/20 21 Venous) DELTA SYSTEM FREIGHT CAR CLEANER 10:02 AM DELTA SYSTEM FREIGHT CAR CLEANER Janusz Ardon LAB BLOOD ADD-ON Performing Organization Address City/State/ZIP Code Phon e Number [facility] - [address] [place], [place] [address] [place] [address] Laboratories-[facility] [address] [facility] (ABNORMAL) Comprehensive Metabolic Panel (06/06/2021 9:27 AM DELTA SYSTEM FREIGHT CAR CLEANER) Analysis Performed At Patho logist Time Signature Potassium, S 5.4 (H) 3.6 - 5.2 06/06/2021 DTL mmol/L 10:26 AM DELTA SYSTEM FREIGHT CAR CLEANER Sodium, S 140 135 - 145 06/06/2021 DTL mmol/L 10:26 AM DELTA SYSTEM FREIGHT CAR CLEANER Chloride, S 105 98 - 107 06/06/2021 DTL mmol/L 10:26 AM DELTA SYSTEM FREIGHT CAR CLEANER Bicarbonate, S 29 22 - 29 06/06/2021 DTL mmol/L 10:26 AM DELTA SYSTEM FREIGHT CAR CLEANER Anion Gap 6 (L) 7 - 15 06/06/2021 DTL 10:26 AM DELTA SYSTEM FREIGHT CAR CLEANER BUN (Blood Urea 33 (H) 6 - 21 06/06/2021 DTL Nitrogen), S mg/dL 10:26 AM DELTA SYSTEM FREIGHT CAR CLEANER Creatinine 1.15 (H) 0.59 - 06/06/2021 DTL 1.04 mg/dL 10:26 AM DELTA SYSTEM FREIGHT CAR CLEANER eGFR-Non 54 (L) >=60 06/06/2021 DTL Black/ mL/min/BSA 10:26 AM DELTA SYSTEM FREIGHT CAR CLEANER [place] Comment: ----ADDITIONAL INFORMATION---- Estimated GFR calculated using the 2009 CKD_EPI creatinine equation. eGFR-Black/ 63 >=60 mL/min/BSA 2020 10:26 AM DELTA SYSTEM FREIGHT CAR CLEANER DTL Comment: ----ADDITIONAL INFORMATION---- Estimated GFR calculated using the 2009 CKD_EPI creatinine equation. Calcium, Total, S 8.6 8.6 - 10.0 mg/dL 06/06/2021 10:2 6 AM DELTA SYSTEM FREIGHT CAR CLEANER DTL Glucose, S 113 70 - 140 mg/dL 06/06/2021 10:26 AM DELTA SYSTEM FREIGHT CAR CLEANER DTL Protein, Total, S 5.7 (L) 6.3 - 7.9 g/dL 06/06/2021 10:26 AM DELTA SYSTEM FREIGHT CAR CLEANER DTL Albumin, S 4.1 3.5 - 5.0 g/dL 06/06/2021 10:26 AM DELTA SYSTEM FREIGHT CAR CLEANER DTL Aspartate Aminotransferase 23 8 - 43 U/L 06/06/2021 1 0:26 AM DELTA SYSTEM FREIGHT CAR CLEANER DTL (AST), S Alkaline Phosphatase, S 50 35 - 104 U/L 06/06/2021 10 :26 AM DELTA SYSTEM FREIGHT CAR CLEANER DTL Alanine Aminotransferase 13 7 - 45 U/L 06/06/2021 10: 26 AM DELTA SYSTEM FREIGHT CAR CLEANER DTL (ALT), S Bilirubin, Total, S 0.9 <=1.2 mg/dL 06/06/2021 10:26 A M DELTA SYSTEM FREIGHT CAR CLEANER DTL Specimen Anatomical Collection Method Collection Time Receive d Time (Source) Location / / Volume Laterality Blood (Blood, 06/06/2021 9:27 AM 06/06/20 21 Venous) DELTA SYSTEM FREIGHT CAR CLEANER 10:07 AM DELTA SYSTEM FREIGHT CAR CLEANER Janusz Ardon LAB BLOOD ADD-ON Performing Organization Address City/State/ZIP Code Phon e Number [facility] - [address] [place] [address] [facility] [place] [address] Laboratories-[facility] [address] [facility] (ABNORMAL) CBC with Differential, Blood (06/06/2021 9:27 AM DELTA SYSTEM FREIGHT CAR CLEANER) [facility] gist Method Time Signature Hemoglobin 5.3 (CL) 11.6 - 06/06/2021 DTL 15.0 g/dL 11:07 AM DELTA SYSTEM FREIGHT CAR CLEANER Hematocrit 18.5 (L) 35.5 - 06/06/2021 DTL 44.9 % 11:07 AM DELTA SYSTEM FREIGHT CAR CLEANER Erythrocytes 2.12 (L) 3.92 - 06/06/2021 DTL 5.13 11:07 AM DELTA SYSTEM FREIGHT CAR CLEANER x10(12)/L MCV 87.3 78.2 - 06/06/2021 DTL 97.9 fL 11:07 AM DELTA SYSTEM FREIGHT CAR CLEANER RBC Distrib Width 26.9 (H) 12.2 - 06/06/2021 DTL 16.1 % 11:07 AM DELTA SYSTEM FREIGHT CAR CLEANER Platelet Count 99 (L) 157 - 371 06/06/2021 DTL x10(9)/L 11:07 AM DELTA SYSTEM FREIGHT CAR CLEANER Comment: Results confirmed by smear, no clumping or interference seen. Leukocytes 3.3 (L) 3.4 - 9.6 x10(9)/L 06/06/2021 11:07 AM DELTA SYSTEM FREIGHT CAR CLEANER DTL Comment: Results confirmed by smear. Neutrophils SeeComment 1.56 - 6.45 x10(9)/L 06/06/2021 11:07 AM DELTA SYSTEM FREIGHT CAR CLEANER DTL Comment: Auto-diff results not valid. Se e manual differential. Specimen Anatomical Collection Method Collection Time Receive d Time (Source) Location / / Volume Laterality Blood (Blood, 06/06/2021 9:27 AM 06/06/20 21 Venous) DELTA SYSTEM FREIGHT CAR CLEANER 10:02 AM DELTA SYSTEM FREIGHT CAR CLEANER Janusz ArringtonB.S. LAB BLOOD ADD-ON Performing Organization Address City/[facility] Phon e Number [facility] - [address] Miscellaneous Research, B (06/06/2021 9:26 AM DELTA SYSTEM FREIGHT CAR CLEANER) athologist Signature Number of 5 06/06/2021 [facility] Specimens 9:26 AM DELTA SYSTEM FREIGHT CAR CLEANER Specimen Anatomical Collection Method Collection Time Receive d Time (Source) Location / / Volume Laterality Varies (Blood, 06/06/2021 9:26 AM 021 9:26 Venous) DELTA SYSTEM FREIGHT CAR CLEANER AM DELTA SYSTEM FREIGHT CAR CLEANER Woo ArringtonBZahraaS. LAB RESEARCH NO RESULT PETEY MENESES Performing Organization Address [facility] Phon e Number [facility] - [address] documented in this encounter Visit Diagnoses Diagnosis Myelofibrosis Primary (HCC) Clinical Research Exam documented in this encounter Care Teams Dock Grader Relationship Specialty Start Date End Date None Reported, Pcp PCP - General Family Medicine 02/16/21 documented as of this encounter
--- OUTSIDE RECORDS SUMMARY | 2022-05-02 12:07 | XMS_ITS | Encounter Summary ---
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 - 06/06/2021 11:44 AM FRAME ALIGNER Received a call from Results inquiry. Hemoglobin 5.3 Results given to Bre Negron RN. E ALIGNER documented in 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 Care Teams Receiving Checker Relationship Specialty Start Date End Date None Reported, Pcp PCP - General Family Medicine 02/16/21 documented as of this encounter
--- OUTSIDE RECORDS SUMMARY | 2022-05-02 12:07 | XMS_ITS | Encounter Summary ---
:1970 Author Organization [facility] Address [address] [place] [address] Care Team Providers Name Role Phone None Reported, Pcp Primary Care Provider Unavailable Reason for Visit Outpatient (Routine) - Closed Specialty Diagnoses / Procedures Referred By Contact Refer red To Contact Hematology Oncology [facility] navjot M.B.B.S. [address] [place] [phone] Referral ID Status Reason Start Date Expiration Date Visits Requ ested Visits Authorized [id number] Closed 05/31/2021 05/31/2022 1 1 Encounter Details Date Type Department Care Team Description 06/06/2021 Office Visit Division of Hematology [facility], Myelo fibrosis Primary in [facility], (HCC) (Primary Dx) [place] M.B.B.S. 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 - 06/06/2021 11:30 AM CST Images from the original note were not included. SUBJECTIVE []Expand by Default ?? CHIEF COMPLAINT/REASON FOR VISIT Primary myelofibrosis. ?? HISTORY OF PRESENT ILLNESS Mrs. Dobbs is [...] is on narcotics, and transfusion- dependent anemia. ?? She has been maintained on erythropoiesis-stimulating agents, under the care of Dr. Cr. ?? She contacted me last week because of extreme pain, increasing transfusion needs, and lower extremity edema. ?? I had her see General Surgery for consultation regarding consideration of splenectomy. ?? During my visit today, she reports to me that she has been receiving blood transfusions on a weekly basis. Her hemoglobin is down to 5.3 g/dL. Today, she is in a wheelchair, tachycardic. ?? She has decreased appetite related to the massive splenomegaly. ?? In addition, she has significant lower extremity edema without an explanation at this time. ? OBJECTIVE []Expand by Default ?? PHYSICAL EXAMINATION Vital Signs: Temperature 36.5, pulse 120, blood pressure 108/73. General : ECOG is 3. Lungs: Clear to auscultation. Heart: Tachycardic. Abdomen: Significantly distended with a massive spleen. Extremities: Lower extremity 3+ edema, and the extremities are taut. ?? DIAGNOSTICS Laboratory studies reviewed. ? 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 ?? I have put in a consult for [...] see her back in a month's time. ?? ECTIONAL SUPPLY SUPERVISOR documented in this encounter Plan of Treatment Not on filedocumented as of this encounter Visit Diagnoses Diagnosis Myelofibrosis Primary (HCC) - Primary documented in this encounter Care Teams Cost Reduction Engineer Relationship Specialty Start Date End Date None Reported, Pcp PCP - General Family Medicine 02/16/21 documented as of this encounter
--- OUTSIDE RECORDS SUMMARY | 2022-05-02 12:07 | XMS_ITS | Encounter Summary ---
:1970 Author Organization [facility] Address [address] [place] [id number] Care Team Providers Name Role Phone None Reported, Pcp Primary Care Provider Unavailable Reason for Referral Outpatient (Routine) - Closed Specialty Diagnoses / Procedures Referred By Contact Refer red To Contact Hematology Oncology [facility] ArringtonB.S. [address] [place] [phone] Referral ID Status Reason Start Date Expiration Date Visits Requ ested Visits Authorized [id number] Closed 05/31/2021 05/31/2022 1 1 T PULLER Outpatient (Routine) - Pending Review Specialty Diagnoses / Procedures Referred By Contact Refer red To Contact Hematology Diagnoses Myelofibrosis Primary (HCC) Janusz Govea M.B.B.S. [address] [phone] Referral ID Status Reason Start Date Expiration Date Visits V isits Requested Authorized [id number] Pending 05/31/2021 05/31/2022 1 1 Review T PULLER Outpatient (Routine) - Closed Specialty Diagnoses / Procedures Referred By Contact Refer red To Contact General Surgery Diagnoses Myelofibrosis Primary (HCC) Janusz Govea [facility] MurphyB.S. [address] [place] [phone] Referral ID Status Reason Start Date Expiration Date Visits Requ ested Visits Authorized [id number] Closed 05/31/2021 05/31/2022 1 1 T PULLER Encounter Details Date Type Department Care Team Description 05/31/2021 Orders Only Division of Hematology Janusz Govea M yelofibrosis Primary in [facility] (HCC) (Primary Dx) [place] [address] [facility] [address] [place] [phone] Social History Tobacco Use Types Packs/Day Years [...] at Date Recorded Female 07/24/2021 11:03 AM PLANT PULLER documented as of this encounter Plan of Treatment Scheduled Referrals Name Type Priority Associated Diagnoses Order [facility] Surgery - Outpatient Routine Myelofibrosis Primary E xpected: Spleen consult Referral ([facility]) 05/31/2021 (clinic) (Approximate), Expires: 2023 Hematology - BMT Outpatient Routine Myelofibrosis Primary Ex pected: myeloid consult Referral ([facility]) 05/31/2021 (clinic) (Approximate), Expires: 2023 Hematology office Outpatient Routine 1 Occurren carol visit (clinic) Referral starting 05/14 until 4 documented as of this encounter Results (ABNORMAL) LD (Lactate Dehydrogenase) (06/06/2021 9:27 AM PLANT PULLER) [facility] Method Time Signature Lactate 640 (H) 122 - 222 06/06/2021 DTL Dehydrogenase U/L 10:28 AM PLANT PULLER (LD), S Specimen Anatomical Collection Method Collection Time Receive d Time (Source) Location / / Volume Laterality Blood (Blood, 06/06/2021 9:27 AM 06/06/20 Venous) PLANT PULLER 10:08 AM PLANT PULLER Janusz ArringtonB.SZahraa LAB BLOOD NON ADD-ON Performing Organization Address City/[facility] Phon e Number [facility] - 200 [place], [place] [address] [place] [address] [address] Type and Screen (with reflex Antibody ID) (06/06/2021 9:27 AM PLANT PULLER) [facility] [employer] Method Time Signature ABORh A Pos Not 06/06/2021 ETRM applicable 10:18 AM PLANT PULLER Antibody Negative Negative 06/06/2021 ETRM Screen 10:29 AM PLANT PULLER Type & Screen 06/09/2021 06/06/2021 ETRM Expiration 23:59 10:18 AM PLANT PULLER Testing [place] DEFAULT 06/06/2021 ETRM Location 9:50 AM PLANT PULLER Specimen Anatomical Collection Method Collection Time Receive d Time (Source) Location / / Volume Laterality Blood (Blood, 06/06/2021 9:27 AM 06/06/20 9:50 Venous) PLANT PULLER AM PLANT PULLER Janusz ArringtonB.SZahraa LAB BLOOD BANK TEST ORDERABL ES Performing Organization Address [facility] Phon e Number [facility] - [address] [place] [address] [place] [address] [facility]-[address] (ABNORMAL) Morphology Evaluation (Special Smear) (06/06/2021 9:27 AM PLANT PULLER) [facility] Method Time Signature Neutrophilic Segs 80 (H) 50 - 75 % 06/06/2021 [facility] 11:07 AM PLANT PULLER Lymphocytes 6 (L) 18 - 42 % 06/06/2021 [facility] 11:07 AM PLANT PULLER Monocytes 4 2 - 11 % 06/06/2021 [facility] 11:07 AM PLANT PULLER Metamyelocytes 3 (H) <1 % 06/06/2021 [facility] 11:07 AM PLANT PULLER Myelocytes 6 (H) <0.5 % 06/06/2021 [facility] 11:07 AM PLANT PULLER Blasts 1 (H) <1 % 06/06/2021 [facility] 11:07 AM PLANT PULLER Nucleated RBC 3 /100 WBC 06/06/2021 [facility] 11:07 AM PLANT PULLER Manual Absolute 2.64 1.56 - 06/06/2021 [facility] Neutrophil Count 6.45 11:07 AM PLANT PULLER x10(9)/L Comment: ----ADDITIONAL INFORMATION---- The manual absolute neutrophil count is derived from a manual differential count and therefore is not exactly comparable to the automated absolute halie trophil count. Reviewed by: Tech 06/06/2021 11:07 AM PLANT PULLER DHP M Specimen Anatomical Collection Method Collection Time Receive d Time (Source) Location / / Volume Laterality Blood (Blood, 06/06/2021 9:27 AM 06/06/20 Venous) PLANT PULLER 10:02 AM PLANT PULLER Janusz Ardon LAB BLOOD ADD-ON Performing Organization Address City/State/ZIP Code Phon e Number [facility] - [address] [place], [place] [address] [place] [address] Laboratories-[facility] [address] [facility] (ABNORMAL) Comprehensive Metabolic Panel (06/06/2021 9:27 AM PLANT PULLER) Analysis Performed At Patho logist Time Signature Potassium, S 5.4 (H) 3.6 - 5.2 06/06/2021 DTL mmol/L 10:26 AM PLANT PULLER Sodium, S 140 135 - 145 06/06/2021 DTL mmol/L 10:26 AM PLANT PULLER Chloride, S 105 98 - 107 06/06/2021 DTL mmol/L 10:26 AM PLANT PULLER Bicarbonate, S 29 22 - 29 06/06/2021 DTL mmol/L 10:26 AM PLANT PULLER Anion Gap 6 (L) 7 - 15 06/06/2021 DTL 10:26 AM PLANT PULLER BUN (Blood Urea 33 (H) 6 - 21 06/06/2021 DTL Nitrogen), S mg/dL 10:26 AM PLANT PULLER Creatinine 1.15 (H) 0.59 - 06/06/2021 DTL 1.04 mg/dL 10:26 AM PLANT PULLER eGFR-Non 54 (L) >=60 06/06/2021 DTL Black/ mL/min/BSA 10:26 AM PLANT PULLER [place] Comment: ----ADDITIONAL INFORMATION---- Estimated GFR calculated using the 2009 CKD_EPI creatinine equation. eGFR-Black/ 63 >=60 mL/min/BSA 2020 10:26 AM PLANT PULLER DTL Comment: ----ADDITIONAL INFORMATION---- Estimated GFR calculated using the 2009 CKD_EPI creatinine equation. Calcium, Total, S 8.6 8.6 - 10.0 mg/dL 06/06/2021 10:2 6 AM PLANT PULLER DTL Glucose, S 113 70 - 140 mg/dL 06/06/2021 10:26 AM PLANT PULLER DTL Protein, Total, S 5.7 (L) 6.3 - 7.9 g/dL 06/06/2021 10:26 AM PLANT PULLER DTL Albumin, S 4.1 3.5 - 5.0 g/dL 06/06/2021 10:26 AM PLANT PULLER DTL Aspartate Aminotransferase 23 8 - 43 U/L 06/06/2021 1 0:26 AM PLANT PULLER DTL (AST), S Alkaline Phosphatase, S 50 35 - 104 U/L 06/06/2021 10 :26 AM PLANT PULLER DTL Alanine Aminotransferase 13 7 - 45 U/L 06/06/2021 10: 26 AM PLANT PULLER DTL (ALT), S Bilirubin, Total, S 0.9 <=1.2 mg/dL 06/06/2021 10:26 A M PLANT PULLER DTL Specimen Anatomical Collection Method Collection Time Receive d Time (Source) Location / / Volume Laterality Blood (Blood, 06/06/2021 9:27 AM 06/06/20 21 Venous) PLANT PULLER 10:07 AM PLANT PULLER Janusz Ardon LAB BLOOD ADD-ON Performing Organization Address City/State/ZIP Code Phon e Number [facility] - [address] [place], [place] [address] [place] [address] Laboratories-[facility] [address] (ABNORMAL) CBC with Differential, Blood (06/06/2021 9:27 AM PLANT PULLER) [facility] gist Method Time Signature Hemoglobin 5.3 (CL) 11.6 - 06/06/2021 DTL 15.0 g/dL 11:07 AM PLANT PULLER Hematocrit 18.5 (L) 35.5 - 06/06/2021 DTL 44.9 % 11:07 AM PLANT PULLER Erythrocytes 2.12 (L) 3.92 - 06/06/2021 DTL 5.13 11:07 AM PLANT PULLER x10(12)/L MCV 87.3 78.2 - 06/06/2021 DTL 97.9 fL 11:07 AM PLANT PULLER RBC Distrib Width 26.9 (H) 12.2 - 06/06/2021 DTL 16.1 % 11:07 AM PLANT PULLER Platelet Count 99 (L) 157 - 371 06/06/2021 DTL x10(9)/L 11:07 AM PLANT PULLER Comment: Results confirmed by smear, no clumping or interference seen. Leukocytes 3.3 (L) 3.4 - 9.6 x10(9)/L 06/06/2021 11:07 AM PLANT PULLER DTL Comment: Results confirmed by smear. Neutrophils SeeComment 1.56 - 6.45 x10(9)/L 06/06/2021 11:07 AM PLANT PULLER DTL Comment: Auto-diff results not valid. Se e manual differential. Specimen Anatomical Collection Method Collection Time Receive d Time (Source) Location / / Volume Laterality Blood (Blood, 06/06/2021 9:27 AM 06/06/20 21 Venous) PLANT PULLER 10:02 AM PLANT PULLER Janusz Ardon LAB BLOOD ADD-ON Performing Organization Address City/State/ZIP Code Phon e Number [facility] - [address] [place], [place] [address] [place] [address] Laboratories-[facility] [address] documented in this encounter Visit Diagnoses Diagnosis Myelofibrosis Primary (HCC) - Primary documented in this encounter Additional Health Concerns Infection Onset Date Last Indicated Resolved Time COVID19 Pending 06/06/2021 06/06/2021 06/06/2021 10:01 PM PLANT PULLER documented as of this encounter Care Teams Driver Messenger Relationship Specialty Start Date End Date None Reported, Pcp PCP - General Family Medicine 02/16/21 documented as of this encounter
--- OUTSIDE RECORDS SUMMARY | 2022-05-02 12:07 | XMS_ITS | Encounter Summary ---
:1970 Author Organization [facility] Address [address] [place] [address] Care Team Providers Name Role Phone None Reported, Pcp Primary Care Provider Unavailable Reason for Visit Outpatient (Routine) - Closed Specialty Diagnoses / Procedures Referred By Contact Refer red To Contact General Surgery Diagnoses Myelofibrosis Primary (HCC) [facility] 200 [place] [address] Referral ID Status Reason Start Date Expiration Date Visits Requ ested Visits Authorized [id number] Closed 05/31/2021 05/31/2022 1 1 Encounter Details Date Type Department Care Team Description 06/06/2021 Comprehensive Visit Division of Jose Luis Lacyom egaly Acquired (Primary Dx); Endocrine and AFreddyDZahraa Myelofibrosis Primary (HCC) Metabolic Surgery 200 [facility] [phone] 200 [facility] [phone] [place], [place] (Work) [phone] Social History Tobacco Use Types Packs/Day Years [...] at Date Recorded Female 07/24/2021 11:03 AM BRUSHER HAND documented as of this encounter Consult Notes Ann German M.B.B.S. - 06/06/2021 9:30 AM CST Images from the original note were not included. SUBJECTIVE CHIEF COMPLAINT / REASON FOR VISIT Jennifer Dobbs is a 51 y.o. female presenting in referral from Reva Foreman for consultation in the evaluation of enlarged spleen for Splenectomy. HISTORY OF PRESENT ILLNESS Ms. Dobbs is a 50 year old female with a significant past medical history of myelofibrosis s/p chemotherapy and transfusion dependence who was seen in clinic for evaluation of her enlarged spleen for consideration of Splenectomy. The patient reports having chronic pain in her abdomen that has limitedher daily routine activities and abilities. She reports that her pain is fairly stable throughout, but has intermittent bouts of severe excruciating pain. She states that sometimes the pain is triggered by food. Her appetite has come down drastically and she barely is able to each much. She used to have intolerance of her oral intake around 2 months back when she had constant nausea and vomiting, sheis tolerating intake currently. She reports that her pain is associated with burning of her skin allover. She reports having shortness of breath and is unable to sleep in a supine position. She reports having excessive edema all over her body, more prominent in her feet and arms. She has been having issues with edema since April 2019, when she received multiple blood transfusions of around 10 units in view of constantly low hemoglobin. She seems to have put on weight and states that her abdomen has been enlarging for sometime now and has distended a lot in past few months. She denies fever, chills, nausea, Her past medical history is significant for myelofibrosis, generalized anxiety disorder, hypertension, chronic splenic enlargement, chronic pain, obesity. Her past surgical history is significant for tonsillectomy. REVIEW OF SYSTEMS Constitutional: Positive for fatigue and loss of appetite. Negative for fever and night sweats. Respiratory: Positive for dyspnea. Cardiovascular: Positive for swelling in the legs or feet and shortness of breath when lying flat. Gastrointestinal: Positive for abdominal (belly) pain or cramping. The following systems were negative: Skin, Eyes, ENT, , Musculoskeletal, Neuro, Psych OBJECTIVE PHYSICAL EXAM Constitutional Appearance: Normal appearance. She is obese. Eyes Extraocular Movements: Extraocular movements intact. Pupils: Pupils are equal, round, and reactive to light. Cardiovascular Rate and Rhythm: Normal rate and regular rhythm. Pulmonary Effort: Tachypnea and respiratory distress present. Abdominal General: Abdomen is protuberant. Palpations: There is splenomegaly. Tenderness: There is no abdominal tenderness. Hernia: No hernia is present. Skin General: Skin is warm. Neurological General: No focal deficit present. Mental Status: She is alert and oriented to person, place, and time. ASSESSMENT / PLAN Ms. Dobbs is a pleasant 51 year old female who was seen in the clinic for chronic splenomegaly for consideration of splenomegaly. She has a significant past medical history of myelofibrosis s/p chemotherapy and transfusion dependence. She is currently in respiratory distress from her physical examinat ion with dyspnea in view of fluid overload with anasarca. Patient was given detailed instructions onthe risks, benefits, complications and risks of undergoing splenectomy. We also recommend that patient is worked up thoroughly for her current fluid overload status to optimize her medical conditions in order to proceed with surgery. She was explained in detail about need for splenic vaccinations, and we recommend getting them ideally 2 weeks prior to planned splenectomy procedure. She was also explained in detail about her being at increased risk of infections post splenectomy. She was seen with her , both of them were in agreement with the plan. We will see her back after medical optimization of her fluid overload statusand ongoing respiratory distress. The patient was seen with Dr. Lacy who is in agreement with the plan. Jonathon [email or web address] Resident Physician PGY-1 General Surgery [email or web address] HAND Associated attestation - Jose Luis Lacy M.D. - 06/06/2021 1:31 PM BRUSHER HAND I saw and evaluated the patient, participating in the roa portions of the service. I reviewed Dr. German's note. I agree with her findings and plan. Mrs. Dobbs has myelofibrosis and associated massive splenomegaly with which she appears to be increasingly symptomatic. She feels a constant heaviness, has intermittent acute abdominal pain, early satiety, and lower abdominal discomfort. CT scan performed in February 2021 demonstrates some massive spleen that measures approximately 34 cm x 24 cm and a splenic vein approximately 3 cm in diameter. Thereis compression of the stomach, left kidney with some associated inflammation, and small bowel. The appearance of the spleen is unchanged from previous CT on May 2020. Physical examination is consistent with massive splenomegaly. Mrs. Dobbs reports feeling unwell. She reports total body swelling and on exam she has substantial edema particularly of her lower extremities. She is extremely short of breath and moving around even in small weighs is difficult for her. She reports that she initially thought these changes/symptoms were due to her treatments and expected them to resolve once she finished her treatments. However, they have persisted and worsened. Given the degree of splenomegaly and its impact on her quality of life, I recommend splenectomy and the patient is in agreement and wishes to proceed. However, I am not convinced that the fairly recentchanges of edema and severe shortness of breath and her extremely limited functional capacity are secondary to her splenomegaly. I advised that she undergo an extensive medical workup to determine the etiology of these fairly recent changes and to optimize her medical status prior to undergoing splenectomy, which already will carry substantial risk. This plan was discussed with her manager of tires sales Dr. Govea who will help coordinate this evaluation and medical optimization prior to surgery. She will also need her splenectomy immunizations at least 2 weeks prior to operation. documented in this encounter Plan of Treatment Not on filedocumented as of this encounter Visit Diagnoses Diagnosis Splenomegaly Acquired - Primary Myelofibrosis Primary (HCC) documented in this encounter Care Teams Neuro Urologist Relationship Specialty Start Date End Date None Reported, Pcp PCP - General Family Medicine 02/16/21 documented as of this encounter
--- OUTSIDE RECORDS SUMMARY | 2022-05-02 12:07 | XMS_ITS | Encounter Summary ---
:1970 Author Organization [facility] Address [address] [place] [address] Care Team Providers Name Role Phone None Reported, Pcp Primary Care Provider Unavailable Reason for Visit Reason Comments Pre-visit Testing Orders Encounter Details Date Type Department Care Team Description 06/06/2021 Clinical Communication RST DARREN Govea, Pre-visit Testing [address] [place] [address] [place] [phone] [place] [phone] Social History Tobacco Use Types Packs/Day Years [...] at Date Recorded Female 07/24/2021 11:[address] SERV[address] documented as of this encounter Plan of Treatment Not on filedocumented as of this encounter Results (ABNORMAL) CBC with Differential, Blood (07/02/2021 11:[address] SERVICE) [facility] Method Time Signature Hemoglobin 7.4 (L) 11.6 - 07/02/2021 DTL 15.0 g/dL 11:[address] Hematocrit 24.1 (L) 35.5 - 07/02/2021 DTL 44.9 % 11:[address] Erythrocytes 2.70 (L) 3.92 - 07/02/2021 DTL 5.13 11:[address] [employer] x10(12)/L MCV 89.3 78.2 - 07/02/2021 DTL 97.9 fL 11:[address] [employer] RBC Distrib Width 25.5 (H) 12.2 - 07/02/2021 DTL 16.1 % 1:[address] [employer] Platelet Count 88 (L) 157 - 371 07/02/2021 DTL x10(9)/L 11:[address] [employer] Leukocytes 3.1 (L) 3.4 - 9.6 07/02/2021 DTL x10(9)/L 1:[address] [employer] Comment: Results confirmed by smear. Neutrophils SeeComment 1.56 - 6.45 x10(9)/L 07/02/2021 1:[address] [employer] DTL Comment: Auto-diff results not valid. Se e manual differential. Specimen Anatomical Collection Method Collection Time Receive d Time (Source) Location / / Volume Laterality Blood (Blood, 07/02/2021 11:01 07/02/2021 Venous) AM [address] SERVICE 11:[address] [employer] Margy Frazier P.A.-C. LAB BLOOD ADD-ON Performing Organization Address City/State/ZIP Code Phon e Number [facility] - [address] [place], [place] [address] [facility] [place] [address] [facility] [address] [facility] (ABNORMAL) Comprehensive Metabolic Panel (07/02/2021 11:[address] [employer]ICE) Analysis Performed At Patho logist Time Signature Potassium, S 4.6 3.6 - 5.2 07/02/2021 DTL mmol/L 12:[address] [employer] Sodium, S 142 135 - 145 07/02/2021 DTL mmol/L 12:[address] [employer] Chloride, S 104 98 - 107 07/02/2021 DTL mmol/L 12:[address] [employer] Bicarbonate, S 30 (H) 22 - 29 07/02/2021 DTL mmol/L 12:[address] [employer] Anion Gap 8 7 - 15 07/02/2021 DTL 12:[address] [facility] BUN (Blood Urea 35 (H) 6 - 21 07/02/2021 DTL Nitrogen), S mg/dL 12:[address] [employer] Creatinine 1.26 (H) 0.59 - 07/02/2021 DTL 1.04 mg/dL 12:[address] [employer] eGFR-Non 49 (L) >=60 07/02/2021 DTL Black/ mL/min/BSA 12:[address] [employer] [place] Comment: ----ADDITIONAL INFORMATION---- Estimated GFR calculated using the 2009 CKD_EPI creatinine equation. eGFR-Black/ 56 (L) >=60 mL/min/BSA 2020 12:[address] [employer] DTL Comment: ----ADDITIONAL INFORMATION---- Estimated GFR calculated using the 2009 CKD_EPI creatinine equation. Calcium, Total, S 9.0 8.6 - 10.0 mg/dL 07/02/2021 12:[address] [facility] DTL Glucose, S 122 70 - 140 mg/dL 07/02/2021 12:[address] [facility] DTL Protein, Total, S 6.6 6.3 - 7.9 g/dL 07/02/2021 12:[address] [facility] DTL Albumin, S 4.5 3.5 - 5.0 g/dL 07/02/2021 12:[address] [facility] DTL Aspartate Aminotransferase 25 8 - 43 U/L 07/02/2021 1 2:[address] [facility] DTL (AST), S Alkaline Phosphatase, S 44 35 - 104 U/L 07/02/2021 12 :[address] [facility] DTL Alanine Aminotransferase (ALT), 10 7 - 45 U/L 021 12:[address] [employer] DTL S Bilirubin, Total, S 0.8 <=1.2 mg/dL 07/02/2021 12:[address] [facility]ICE DTL Specimen Anatomical Collection Method Collection Time Receive d Time (Source) Location / / Volume Laterality Blood (Blood, 07/02/2021 11:01 07/02/2021 Venous) AM [address] SERVICE 11:[address] [employer] Margy Frazier P.A.-C. LAB BLOOD ADD-ON Performing Organization Address City/State/ZIP Code Phon e Number [facility] - [address] [place], [place] [address] [facility] [place] [address] [facility] [address] documented in this encounter Visit Diagnoses Diagnosis Splenomegaly Acquired - Primary documented in this encounter Care Teams Tunnel Kiln Firer Relationship Specialty Start Date End Date None Reported, Pcp PCP - General Family Medicine 02/16/21 documented as of this encounter
--- OUTSIDE RECORDS SUMMARY | 2022-05-02 12:07 | XMS_ITS | Encounter Summary ---
:1970 Author Organization [facility] Address [address] [place] [address] Care Team Providers Name Role Phone None Reported, Pcp Primary Care Provider Unavailable Encounter Details Date Type Department Care Team Description 06/06/2021 Medication Division of Abilio Myelofibrosis ( HCC) Management Hematology in [facility] [place], (Primary Dx) Kayleigh Gay, R.Ph. 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 - 06/06/2021 12:04 PM CST SUBJECTIVE Referring Provider: Janusz Govea MD Reason for Visit Medication Therapy Management: Targeted Consult - symptom review and fedratinib consideration History of Present Illness Ms. Dobbs is a 51 y.o. female with a history of CALR and SF3B1.mutated primary myelofibrosis. She is transfusion dependent for PRBCs and has profoundly symptomatic splenomegaly requiring splenomegaly. She has previously received Jakafi without response and 3 cycles of 9-ING (off study 08/03/20). She presents today for profound fluid overload, transfusion dependence, and pain secondary to splenomegaly. She was last seen in February [address] Govea and is being managed locally by Dr. Dylon Cr. In April 2021 she was transfused what appears to be 5 times and she has received 5 units in May so far. She states she's getting injections for to help reduce her blood transfusion needs (Aranesp) but I do not see this in Care Everywhere. Her erythropoietin level in August 2020 was > 700. The following portions of the patient's history were reviewed and updated as appropriate: allergies,current medications, family history, medical history, social history, surgical history and problem list. OBJECTIVE Labs Lab Results Component Value Date HGB 5.3 (Crit L) 06/06/2021 WBC 3.3 (L) 06/06/2021 ANC 3.5 01/22/2019 PLT 99 (L) 06/06/2021 Lab Results Component Value Date CREATININE 1.15 (H) 06/06/2021 CALCIUM 8.6 06/06/2021 URICACID 4.6 02/16/2021 Lab Results Component Value Date ALKPHOS 50 06/06/2021 AST 23 06/06/2021 ALT 13 06/06/2021 BILITOT 0.9 06/06/2021 ALBUMIN 4.1 06/06/2021 ASSESSMENT / PLAN 1. Medication reconciliation The patient was seen. Medication reconciliation was accomplished by review of all medications, prescription and non-prescription including vitamins and supplements from patient's memory and electronic health record (EHR) medication list. These were reviewed and reconciled with the patient. The following are present at time of visit/service: patient and patient's family. The patient does not appear cognitively impaired at this visit. 2. Primary myelofibrosis She will be admitted to the hospital for management of pain, fluid status, and evaluation of her myelofibrosis status. Anticipate: ?? Lower extremity ultrasounds ?? Abdominal ultrasound (spleen measurement) ?? Echocardiogram. ?? Transfusion PRBCs ?? Bone marrow per Dr. Govea's direction. ?? No CLAIRE needed. Surgical consult reviewed for splenectomy - soonest they had was July. Okay to vaccinate while she is there. No vaccination history on file or Pneumococcal or Meningococcal. May follow MATHEUS. Will also send prescription for fedratinib to manage spleen prior to splenectomy. Per Dr. Govea fedratinib start at 200 mg daily. Check baseline: thiamine, amylase, lipase. Ensure CBC/CMP within 1 week of start for baseline. She will need to alert Dr. Govea prior to start so we can start weekly labs. Prior authorization is pending. Above recommendations were communicated to the referring provider via an electronically routed chart. Total time spent was 30 minutes, with more than 50% of the time spent on counseling, coordination ofcare and patient education. Patience Knox, Pharm.D., R.Ph. Hematology/Oncology Clinical Pharmacist ECTIONERY COOKER documented in 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 Care Teams Gas Burner Operator Relationship Specialty Start Date End Date None Reported, Pcp PCP - General Family Medicine 02/16/21 documented as of this encounter
--- OUTSIDE RECORDS SUMMARY | 2022-05-02 12:07 | XMS_ITS | Encounter Summary ---
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 documented as of this encounter Plan of Treatment Not on filedocumented as of this encounter Results Miscellaneous Research, B (06/06/2021 9:26 AM DIE FINISHER) athologist Signature Number of 5 06/06/2021 HSS Specimens 9:26 AM DIE FINISHER Specimen Anatomical Collection Method Collection Time Receive d Time (Source) Location / / Volume Laterality Varies (Blood, 06/06/2021 9:26 AM 021 9:26 Venous) DIE FINISHER AM DIE FINISHER Woo Ardon LAB RESEARCH NO RESULT PETEY MENESES Performing Organization Address City/State/ZIP Code Phon e Number [facility] - [address] [place], [place] [address] [place] [address] [facility] [address] documented in this encounter Visit Diagnoses Diagnosis Clinical Research Exam - Primary documented in this encounter Care Teams Pad Assembler Relationship Specialty Start Date End Date None Reported, Pcp PCP - General Family Medicine 02/16/21 documented as of this encounter
--- OUTSIDE RECORDS SUMMARY | 2022-05-02 12:07 | XMS_ITS | Encounter Summary ---
:1970 Author Organization [facility] Address [address] [place] [address] Care Team Providers Name Role Phone None Reported, Pcp Primary Care Provider Unavailable Encounter Details Date Type Department Care Team Description 06/06/2021 Orders Only [facility], Amna Atwood M yelofibrosis (HCC) [facility], RESIDENCE DIRECTOR, C.N.P. 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
--- OUTSIDE RECORDS SUMMARY | 2022-05-02 12:07 | XMS_ITS | Encounter Summary ---
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
--- OUTSIDE RECORDS SUMMARY | 2022-05-02 12:07 | XMS_ITS | Encounter Summary ---
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
--- OUTSIDE RECORDS SUMMARY | 2022-05-02 12:07 | XMS_ITS | Encounter Summary ---
:1970 Author Organization [facility] Address [address] [place] [address] Care Team Providers Name Role Phone None Reported, Pcp Primary Care Provider Unavailable Reason for Visit Reason Comments Pt's called Encounter Details Date Type Department Care Team Description 06/05/2021 Clinical Communication Division of [facility], Pt's called Hematology in [facility] [address] [facility] [address] [place] [phone] [phone] Social History Tobacco Use Types Packs/Day Years [...] Date Recorded Female 07/24/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 - 06/06/2021 11:33 AM MANAGER CULINARY Addended by: BRE MADDOX on: 06/06/2021 11:33 AM Modules accepted: Orders GER CULINARY Addendum Note - Bre Maddox R.N. - 06/06/2021 11:22 AM MANAGER CULINARY Addended by: BRE MADDOX on: 06/06/2021 11:22 AM Modules accepted: Orders GER CULINARY Telephone Encounter - Bre Maddox R.N. - 06/05/2021 2:51 PM CST There is no order for the booster shot. We can order the appointment and the immunization nurses go through the chart to determine if the patient is eligible for the booster for the decision tree, however, no one seemed to know how to order it to tell me how to order it. First available booster shot is 3 at the [facility]. I called the [address] [place] [address] Vaccine clinic and they are only by appointment. The patient can call and request the booster. That is much easier as they then create the vaccine request and they can get the patient scheduled then. I called [facility] as I have not been able to preschedule blood products with them until the levels are back. I spoke to Dalton who verified that is still the case. I called and spoke to Gian and let him know. He said that Jennifer is also very full of fluid. I let him know that could be do impaired cardiac or kidney function and they should discuss with Dr. Oquendo/or Dr. Govea tomorrow. He will do that. We also discussed the need for vaccination if Jennifer does undergo a splenectomy so best to find that out prior to covid booster. I will watch for labs tomorrow morning and order RBC is hgb less than 7. GER CULINARY Telephone Encounter - Dena Junior R.N. - 06/05/2021 1:29 PM MANAGER CULINARY I am unsure how to order a Covid booster. Thank you, Dena NARAYAN GER CULINARY Telephone Encounter - Dena Junior R.N. - 06/05/2021 1:21 PM MANAGER CULINARY Patient of Dr. Govea. DX: Myelofibroisis transfused every week to week and a half. Please order COVID vaccine if appropriate. Walk in clinic is finished. She is being seen by Dr. Govea tomorrow. Type and Cross is ordered for tomorrow if she needs a transfusion Thank you, Dena RN GER CULINARY Telephone Encounter - Gabriela Cates - 06/05/2021 12:49 PM CST Pt's called and said that he wanted to have Dr. Govea set up for his to have a blood transfusion. That she needs one every time she comes for doctor visits. He also wanted to know if she could get her covid booster. Please call pt at [phone] Thank you, Shana - Hematology, [facility] GER CULINARY documented in this encounter Plan of Treatment Not on filedocumented as of this encounter Visit Diagnoses Diagnosis Myelofibrosis Primary (HCC) - Primary documented in this encounter Care Teams Assembling Fabricator Relationship Specialty Start Date End Date None Reported, Pcp PCP - General Family Medicine 02/16/21 documented as of this encounter
--- OUTSIDE RECORDS SUMMARY | 2022-05-02 12:07 | XMS_ITS | Encounter Summary ---
:1970 Author Organization [facility] Address [address] [place] [address] Care Team Providers Name Role Phone None Reported, Pcp Primary Care Provider Unavailable Encounter Details Date Type Department Care Team Description 06/06/2021 - Hospital Encounter [facility] Ijeoma Hickman M.D. [address] [place] [phone] Myelofibrosis (HCC) 06/11/2021 Hospital, Ronny Weber M.D. [address] [place] [phone] (Primary Dx) [facility], Seventh Floor [address] [place] [id number] Social History Tobacco Use Types Packs/Day Years [...] at Date Recorded Female 07/24/2021 11:03 AM YOUTH COUNSELOR documented as of this encounter Last Filed Vital Signs Vital Sign Reading Time Taken Comments Blood Pressure 121/73 06/11/2021 3:43 PM YOUTH COUNSELOR Pulse 116 06/11/2021 3:43 PM YOUTH COUNSELOR Temperature 36.9 ??C (98.4 ??F) 06/11/2021 3:43 PM YOUTH COUNSELOR Respiratory Rate 16 06/11/2021 3:43 PM YOUTH COUNSELOR Oxygen Saturation 96% 06/11/2021 3:43 PM YOUTH COUNSELOR Inhaled Oxygen Concentration - - Weight 96.7 kg (213 lb 3 oz) 06/11/2021 7:55 AM YOUTH COUNSELOR Height 168.5 cm (5' 6.34) 06/06/2021 8:04 PM YOUTH COUNSELOR Body Mass Index 34.06 06/06/2021 8:04 PM YOUTH COUNSELOR documented in this encounter Discharge Summaries Laurita Reyes P.A.-C., M.S. - 06/11/2021 3:22 PM CST DISCHARGE SUMMARY BRIEF OVERVIEW Hospital: [facility] Discharge Provider: Ronny Peña M.D. Primary Team: [facility] Hematology 2 Primary Care Providers: None Reported, Pcp (General) No address on file Primary Care Provider Phone Number: None Primary Care Provider Fax Number: None Other Providers: Laurita Reyes PA-C Admission Date: 06/06/2021 Discharge Date: 06/11/2021 PRINCIPAL DIAGNOSIS Myelofibrosis (HCC) SECONDARY DIAGNOSES Principal Problem: Myelofibrosis (HCC) Active Problems: Pancytopenia (HCC) Regurgitation Tricuspid Fluid Overload Unspecified Tachycardia Sinus Hyperphosphatemia Abdominal Pain Splenomegaly Acquired Anxiety Insomnia Failure Heart Right (HCC) Hyperuricemia Edema Elevated Creatinine Gastroesophageal Reflux Disease Hypertension Pulmonary (HCC) Resolved Problems: * No resolved hospital problems. 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 Cardiovascular Disease 07/02/2021 11:00 AM LAB BLOOD MICK Dc Laboratory Medicine 07/02/2021 1:30 PM Janusz Govea M.B.B.S. Hematology 07/23/2021 3:00 PM HEM BMT CLINIC 01 [facility] Hematology 07/24/2021 7:30 AM uPrvi Davis L.I.C.S.W., M.S.W. Transplant 09/04/2021 2:30 PM Carlos Manuel Johnson M.D. Sleep Medicine For appointment details refer to your Patient Appointment Guide. TEST RESULTS PENDING AT DISCHARGE Pending Labs Order Current Status Chromosome Analysis, Hematologic Disorders, Bone Marrow In process OncoHeme NGS for Myeloid Neoplasms In process DETAILS OF HOSPITAL STAY REASON FOR ADMISSION Myelofibrosis (HCC) HOSPITAL COURSE Mrs. 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 She was initially diagnosed inFebruary 2015 after presenting to local ED after developing severe left upper quadrant pain and found to have marked splenomegaly. She was evaluated by a local java developer analyst and diagnosed with CALR mutated myelofibrosis. She was initiated on Jakafi at the time of diagnosis however this caused her to betransfusion dependent so it was discontinued. She presented to [facility] for further recommendations and was enrolled in the [id number] clinical study. A myeloproliferative neoplasm panel was done at [facility] on 05/01/2016 that confirmed CALR and revealed that she was negative for JAK2 V617F. BMBx on 06/01/2020 and revealed persistent chronic myeloid neoplasm with no increase in blasts, grade 3 myelofibrosis and 20-30% sideroblasts. Cytogenetics revealed 13q deletion. NGS revealed CALR and SF3B1. She most recently was treated per 9-ING clinical trial having received her last dose on 08/03/2020. She has been following locally with Dr. Cr and receiving erythropoiesis stimulating agents and transfusion support. She presented for follow up with Dr. Govea on 06/06/21 due to excess fluid accumulation and increasing pain and was admitted to the Hematology 2 service for further evaluation and clinical optimization. Bone marrow biopsy from 06/06 findings were consistent with the prior clinical and morphologic diagnosis of primary myelofibrosis harboring CALR and SF3B1 mutations.. She required multiple red blood cell transfusions. Plan is for her to initiate fedratinib and a prior authorization has been initiated.She is to contact Dr. Govea once she has obtained the medication as she will need a CBC/CMP one week after initiation. She received aggressive diuresis for her excess fluid volume with lasix drip and oral torsemide. Shedecreased 13 kg from admission and urinated >15 L, resulting in weight close to baseline. Echo was performed 06/06 which revealed severe tricuspid regurgitation, right sided heart failure, and pulmonary hypertension. Cardiology was consulted who guided diuretic management, recommended low sodium diet, and rule out of SANDEE. She underwent overnight pulse oximetry 06/10-06/11; results PENDING. Repeat echo was completed 06/11 which did not reveal a significant change. She has scheduled follow up with the Pulmonary Hypertension clinic on 06/29. Due to the chance of MF affecting her pulmonary system, a nuclear medicine bone marrow scan was performed 06/11 with minimally elevated diffuse activity in both lungs, favored to be related to scatter from liver/spleen, although mild diffuse pulmonary extramedullary hematopoiesis could appear similar.Per Dr. Govea, no role for palliative radiation with these results. She should continue current management with cardiology. She will follow up on [address] [facility] on 06/12. She is scheduled to follow up with Dr. Govea on 07/02. She has a BMT consult on 07/23/21 and HLA typing was collected while inpatient. She is planned to undergo splenectomy on 07/16/2020. She received recommended vaccinations for a patient having splenectomy ofPCV13, HIB, Miller, MenB and influenza on 06/06, please see notes for dates when second vaccinations are due. Jennifer Dobbs will be contacted by our Desk Torsion Spring Coiling Machine Setter prior to their next planned admission to make arrangements for preadmission COVID testing. COVID testing results should be completed and resulted within 48-72 hrs prior to hospital admission. I saw and evaluated Jennifer Dobbs today and provided counseling [id number] at bedside. I personally spent greater than 30 minutes in counseling and discussion with the patient and in coordination of care as described above to facilitate the hospital discharge. Please contact the [facility] at [phone] with any questions or concerns. CONSULTS ORDERED DURING THIS ADMISSION IP CONSULT TO CARDIOLOGY CONDITION AT DISCHARGE stable Discharge instructions were provided to the patient and caregiver(s). H COUNSELOR documented in this encounter Discharge Instructions Nu Dos Santos - 06/08/2021 10:12 AM CST Take a copy of this after visit summary to your appointment(s). [place], [place] June 15, 2021 - Friday --8:15 am - Hospital Follow-Up with Dr. Cr at [facility] ([address] [place], [place]) RECOMMENDATIONS: * * [facility] You may have outpatient appointments at [facility] that changed during your hospitalization. Refer to your [facility] Patient Visit Guide (PVG) for the most current schedule of appointments and detailed instructions of tests/procedures. Call [phone], if you did not receive an PVG or need to CANCEL any [facility] appointment(s). H COUNSELOR AttachmentsThe following attachments cannot be sent through Care Everywhere. Calcium Acetate (By mouth) (Moroccan)Fedratinib (By mouth) (Moroccan)Torsemide (By mouth) (Moroccan)documented in this encounter Medications at Time of [...] 1 mg tablet total) by mouth daily. morphine (MSIR) 15 mg Take 15 mg by mouth 0 03/11/2022 tablet at bedtime. oxyCODONE (OXY-IR) 5 mg Take 2 capsules by 0 02/1203/18/2022 immediate release mouth every 4 (four) capsule hours as needed. calcium acetate,phosphat Take 2 capsules 24 capsule 0 202008/14/2021 bind, (PHOSLO) 667 mg (1,334 mg total) by (169 mg calcium) capsule mouth 3 (three) times a day with meals. fedratinib (INREBIC) 100 Take 2 capsules (200 60 capsule 2 1 08/11/2020 08/15/2021 mg capsule mg total) by mouth daily. Do not start until instructed. documented as of this encounter Progress Notes Lanette Loera M.D. - 06/11/2021 10:07 AM CST CARDIOLOGY PROGRESS NOTE SUBJECTIVE Received oral torsemide yesterday with good response. Doing well this AM. Echo being performed during my assessment; she hopes to discharge from the hospital today. OBJECTIVE VITAL SIGNS Temperature: [36.3 ??C-37 ??C] 37 ??C Resp Rate: [16-20] 16 Blood Pressure: (116-136)/(54-87) 125/80 SpO2: [91 %-95 %] 92 % Weight: [96.7 kg-97 kg] 96.7 kg BMI (Calculated): [34.1 kg/m??-34.2 kg/m??] 34.1 kg/m?? Pulse Rate: [104-116] 116 Intake/Output Summary (Last 24 hours) at 06/11/2021 1007 Last data filed at 06/11/2021 0943 Gross per 24 hour Intake 1360 ml Output 2275 ml Net -915 ml PHYSICAL EXAM General: no acute distress, resting comfortably Heart: JVP 3cm above clavicle with V waves to 4 Lungs: CTAB, no wheezing, on room air Abdomen: soft, non-tender, no rebound or guarding Ext: 1+ LE edema Vitals reviewed. LABS Lab Results Component Value Date WBC 2.9 (L) 06/11/2021 HGB 7.7 (L) 06/11/2021 HCT 24.6 (L) 06/11/2021 MCV 85.4 06/11/2021 PLT 103 (L) 06/11/2021 Lab Results Component Value Date NA 139 06/11/2021 CL 97 (L) 06/11/2021 CREATININE 1.14 (H) 06/11/2021 BUN 32 (H) 06/11/2021 ANIONGAP 7 06/11/2021 GLUCOSE 113 06/11/2021 CALCIUM 9.2 06/11/2021 Lab Results Component Value Date INR 1.3 06/07/2021 PT 14.9 (H) 06/07/2021 ASSESSMENT / PLAN Mrs. Dobbs is a 51 year old female who is hospitalized with volume overload in the setting of chronic transfusion dependent myelofibrosis. She is found to have severe TR and features of pulmonary hypertension. #1 Severe tricuspid regurgitation, likely functional #2 Right ventricular dysfunction #3 Likely pulmonary hypertension, query group 1, 2 #4 Pericardial effusion without tamponade #5 Myelofibrosis, transfusion dependent #6 Acute right heart failure, improving with diuretics #7 Massive splenomegaly #8 Pancytopenia #9 Ascites #10 Question of right heart-related liver disease #12 Abnormal overnight oximetry #13 Obesity She tolerated torsemide 20 mg daily well and finished the day net negative. I think this dose would likely be suitable to discharge her on, as I anticipate her intake may increase as an outpatient. Shehas not required potassium supplementation. Her echo is pending; regardless, I doubt it will identify findings which would justify keeping her inpatient. Her overnight oximetry is not finalized, but does appear markedly abnormal based on the waveforms. As such, I will order an outpatient sleep medicine consultation. I spoke briefly with the [place] fellow regarding her outpatient follow-up this AM: Mrs. Dobbs currently has an appointment scheduled for June 29 in [facility] clinic, and has labs on the . No additionaltesting is needed at this time beyond the current echo. RECOMMENDATIONS: 1. I will follow up on the results of her echo, but anticipate the findings would not change the recommendation that from a CV perspective, she is stable to discharge. 2. She should continue torsemide 20 mg daily at home. No K supplementation for now. Labs in 2 weeks as scheduled. 3. She and I reviewed the importance of careful sodium restriction and monitoring of weight and volume status. 4. Outpatient follow up scheduled 06/29. The patient was seen and discussed with Dr. Borrego. We will continue to follow along. Please page [phone] with questions or concerns. Lanette Loera M.D. H COUNSELOR Ijeoma Hickman M.D. - 06/10/2021 2:19 PM CST I have seen and examined the patient. I discussed the case and agree with??ms Eric? Mrs.??Rinku??is a 51-year-old female diagnosed with CALR mutated myelofibrosis status post several therapies including Jakafi, alisertib, 9-ING, CLAIRE with transfusion-dependent anemia and splenomegaly. ?? Patient was seen in the clinic and was found to have gained weight, fluid retention with concern of heart failure. ??She was admitted to the hospital for diuresis and management. ??With IV Lasix drip she??diuresed very well. ??A bone marrow biopsy was done, results pending. ??Echocardiogram showed left ventricle ejection fraction 62%, right ventricle systolic pressure at 67, severe tricuspid regurgitation. ??She also required blood transfusion with modest increment of her hemoglobin. ?? Patient was seen on the chair, was on Lasix drip. Had good urine output. Continues to do better on adaily basis ?? Physical exam Skin no rash Mouth no ulcers Abdomen positive splenomegaly Extremities +1-2 edema bilaterally ? 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 We will switch her to oral Lasix and see how she does over the next 1-2 days anticipating discharge.We will get overnight oximetry per cardiology recommendations. Will increase her Phoslo and monitor her phosphorus. Will try to get bone marrow scan for pulmonary extramedullary hematopoiesis, if positive she will need to see [facility] for palliative radiation to the lungs, if negative she needs to follow-up with the pulmonary hypertension clinic for with workup the management. She needs to follow-up with cardiology as an outpatient for follow-up on her HF. Once approved by insurance she can start on fedratinib. As outpatient needs to keep Hg close to 8 and get IV lasix with transfusion. Will need to set her upwith a new clinic for labs monitoring per Dr Xuan khalil. H COUNSELOR Laurita Reyes P.A.-C., M.S. - 06/10/2021 8:38 AM CST HEMATOLOGY 2 SERVICE (service pager [phone]) SUBJECTIVE EVENTS OVER THE LAST 24 HOURS Mrs. Dobbs was evaluated this morning, her care was discussed with Dr. Hickman and the Hematology 2team. She remains afebrile, hemodynamically stable, and without acute event overnight. She was able to achieve some sleep overnight, however has difficulty with sleeping in hospital bed and frequent urination. She continues to feel improved from admission. Her abdominal pain is well controlled on homeregimen. Her shortness of breath is also improved, continues to be dyspneic with strenuous activity.Appetite improved, BM regular. REVIEW OF SYSTEMS All 10 point review of systems was completed and negative except per HPI. OBJECTIVE VITAL SIGNS Temperature: [36.4 ??C-36.9 ??C] 36.8 ??C Heart Rate: [102-105] 102 Resp Rate: [18-20] 20 Blood Pressure: (113-139)/(69-97) 134/97 SpO2: [95 %-97 %] 95 % Pulse Rate: [102-127] 127 PHYSICAL EXAM General: Resting in bed in no acute distress Skin: Warm, dry, intact without any visible rashes or lesions ENT: Oral mucosa is pink and moist, poor dentition EYES: PERRL, extra occular motion intact. Sclera anicteric Heart: Regular rate and rhythm with no murmurs, gallops or clicks. Lungs: Clear to auscultation bilaterally, without any wheezes, rhonchi or rales. Respirations even and non labored on room air Abdomen: Marked splenomegaly, soft, non-tender. Bowel sounds present. Extremities: 2+ pitting edema to knees. Perfusing extremities well. Neuro: AOX3, appropriate in conversation, no focal deficits noted, in good spirits Psych: Appropriate affect ASSESSMENT / PLAN Mrs. 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 She was initially diagnosed inFebruary 2015 after presenting to local ED after developing severe left upper quadrant pain and found to have marked splenomegaly. She was evaluated by a local java developer analyst and diagnosed with CALR mutated myelofibrosis. She was initiated on Jakafi at the time of diagnosis however this caused her to betransfusion dependent so it was discontinued. She presented to [facility] for further recommendations and was enrolled in the [id number] clinical study. A myeloproliferative neoplasm panel was done at [place] on 05/01/2016 that confirmed CALR and revealed that she was negative for JAK2 V617F. BMBx on 06/01/2020 and revealed persistent chronic myeloid neoplasm with no increase in blasts, grade 3 myelofibrosis and 20-30% sideroblasts. Cytogenetics revealed 13q deletion. NGS revealed CALR and SF3B1. She most recently was treated per 9-ING clinical trial having received her last dose on 08/03/2020. She has been following locally with Dr. Cr and receiving erythropoiesis stimulating agents and transfusion support. She presented for follow up with Dr. Govea on 06/06/21 due to excess fluid accumulation and increasing pain and was admitted to the Hematology 2 service for further evaluation and clinical optimization. ?? Past Medical History: Generalized Anxiety Disorder, Hypertension (not on medical management), Chronic Pain Transfuse to keep hemoglobin > 8 (symptomatic anemia) and platelets > 10K. Patient does not require premedications prior to RBCs and platelets. #1 Myelofibrosis (HCC) #2 Splenomegaly Acquired - Secondary to #1 #3 Pancytopenia (HCC) - Secondary to #1 - Bone marrow biopsy 06/06: PENDING - NM Bone marrow scan to evaluate pulmonary extramedullary hematopoesis in lungs - ordered and pending scheduling - If positive --> consult [facility] for palliative radiation to lungs - If negative --> continue with Pulm HTN specialist - Abdominal U/S with doppler on 06/06 - Hepatomegaly. Marked splenomegaly. Hepatic and portal veins are patent. Splenic vein is patent. - Plan to initiate fedraitinib 200 mg daily once discharged and patient has supply - Prior authorization is pending - Will require CBC and CMP within 1 week of start of baseline - pt to notify Dr. Govea once she has received her supply - Was evaluated by endocrine and metabolic surgery on 06/06 with plans for splenectomy - Immunizations ideally 14 days prior to splenectomy including Influenza, PCV13,HIB, MenACWY and MenB-4C - PPSV23 due on or after 08/01/20 (8 weeks after PVC13 dose) - Second dose of MCV4 (Menactra) due on or after 08/01/20 (8 weeks from 1st dose) - Second dose of MenB (Bexsero) due on or after 07/04/21 (4 weeks from 1st dose) - Splenectomy tentatively scheduled for 07/16/2021 - Consider 40 mg IV lasix with each transfusion - Follow up with Dr. Govea on 07/02/2021 - Plan for BMT consult scheduled for 07/24/2021, HLA typing obtained 06/07 - [facility] reviewing case to follow locally, Jacques perez. Dr. Bruce to call Dr. Boyce on 06/11 to discuss case. #4 Pulmonary Hypertension #5 Failure Heart Right (HCC) #6 Regurgitation Tricuspid - Severe #7 Fluid Overload #8 Tachycardia Sinus - BID weights and strict I&O monitoring, estimated dry weight is around 95 Kg - Weight down 12 kg from admission - ECHO revealed severely enlarged right ventricular size with abnormal systolic strain of - 11% and severe tricuspid regurgitation - BNP elevated to 10,782 upon admission - CTA Chest 06/07: Negative for PE. Scattered GGO compatible with infection/inflammatory vs pulmonary edema. Small left pleural effusion and pericardial effusion. - Cardiology consulted; we appreciate their recommendations: - Transition to oral torsemide 20 mg daily - Sodium restriction diet - R/O SANDEE: obtain overnight oximetry Sun night - Repeat echo once at dry weight on Mon AM (ordered) - Evaluation by pulmonary hypertension specialist after echo completed on 06/11 #9 Abdominal Pain - Secondary to splenomegaly - Continue home pain regimen with 60 mg PO Morphine ER BID with additonal 15 mg PO Morphine ER QHS - Continue PRN Oxycodone per home regimen - PRN Narcan ordered for inpatient stay given high opioid dosing #10 Anxiety #11 Insomnia - Continue 1mg qHs and 1mg PRN ativan - Note patient was taking 4mg/night at home #12 Hyperphosphatemia #13 Hyperuricemia #14 Elevated Creatinine - Increase PhosLo to 3 tabs TID - Continue allopurinol - G6PD 06/06: 20.9; OK to use rasburicase if indicated COVID-19 Inpatient Hematology Screening - Per ID recommendations for inpatient hematology patients, COVID-19 testing should occur 24-72 hours prior to chemotherapy (as outpatient for planned admissions and immediately for unplanned admissions) - Pre chemotherapy COVID-19 test was Undetected- Date 06/06/2021 Activity: PAMP level 3 VTE prophylaxis: enoxaparin Blood transfusions: Informed consent for blood product transfusions completed during this admission.The major and common risks, benefits and alternatives to blood component therapy were discussed withthis patient, who consented to blood component administration. Surrogate Decision Maker: Spouse, Gian Dobbs [phone] Disposition: Pending clinical stability H COUNSELOR Ijeoma Hickman M.D. - 06/09/2021 12:36 PM CST I have seen and examined the patient. I discussed the case and agree with??ms Eirc ?? Mrs.??Rinku??is a 51-year-old female diagnosed with CALR mutated myelofibrosis status post several therapies including Jakafi, alisertib, 9-ING, CLAIRE with transfusion-dependent anemia and splenomegaly. ?? Patient was seen in the clinic and was found to have gained weight, fluid retention with concern of heart failure. ??She was admitted to the hospital for diuresis and management. ??With IV Lasix drip she diuresed very well. ??A bone marrow biopsy was done, results pending. ??Echocardiogram showed leftventricle ejection fraction 62%, right ventricle systolic pressure at 67, severe tricuspid regurgitation. ??She also required blood transfusion with modest increment of her hemoglobin. ?? Patient was seen today on the chair feels tired but looks better on a daily basis. Continues to be diuresing well on Lasix drip. Physical exam Skin no rash Mouth no ulcers Abdomen positive splenomegaly Extremities +2 edema bilaterally ? 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 Will repeat echo per Cardiology on Friday. Will need to schedule bone marrow scan to see if she has pulmonary extramedullary hematopoiesis. Negative we will need to follow up with Pulmonary hypertension Clinic. Will keep her hemoglobin close to 8. Will follow-up on the timing level. We will start fedratinib once approved by insurance and patient is able to get without interruption. H COUNSELOR Laurita Reyes P.A.-C., M.S. - 06/09/2021 10:38 AM CST HEMATOLOGY 2 SERVICE (service pager [phone]) SUBJECTIVE EVENTS OVER THE LAST 24 HOURS Mrs. Dobbs was evaluated this morning, her care was discussed with Dr. Hickman and the Hematology 2team. She remains afebrile, hemodynamically stable, and without acute event overnight. She is feeling sleepy and fatigued this morning, she was not able to achieve much sleep overnight due to frequent cares and urination. She continues to diurese well and denies dysuria. Continues to be mildly short of breath with light activity, however this is improving. Abdomen not tender this morning and her appetite is improving. REVIEW OF SYSTEMS All 10 point review of systems was completed and negative except per HPI. OBJECTIVE VITAL SIGNS Temperature: [36.3 ??C-37.3 ??C] 36.8 ??C Heart Rate: [108] 108 Resp Rate: [18-24] 20 Blood Pressure: (103-143)/(68-88) 143/77 SpO2: [90 %-96 %] 90 % Pulse Rate: [107-133] 133 PHYSICAL EXAM General: Resting in bed in no acute distress Skin: Warm, dry, intact without any visible rashes or lesions ENT: Oral mucosa is pink and moist, poor dentition EYES: PERRL, extra occular motion intact. Sclera anicteric Heart: Regular rate and rhythm with no murmurs, gallops or clicks. Lungs: Clear to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 Patient does not require premedications prior to RBCs and platelets. #1 Myelofibrosis (HCC) #2 Splenomegaly Acquired - Secondary to #1 #3 Pancytopenia (HCC) - Secondary to #1 - Bone marrow biopsy 06/06: PENDING - Bone marrow scan to evaluate pulmonary extramedullary hematopoesis in lungs - ordered and pending scheduling - Bilateral lower extremity doppler on 06/06 negative for acute DVT - Abdominal U/S with doppler on 06/06 - Hepatomegaly. Marked splenomegaly. Hepatic and portal veins are patent. Splenic vein is patent. - Plan to initiate fedraitinib 200 mg daily once discharge and patient has supply - Prior authorization is pending - Will require CBC and CMP within 1 week of start of baseline - pt to notify Dr. Govea once she has received her supply - Was evaluated by endocrine and metabolic surgery on 06/06 with plans for splenectomy - Immunizations ideally 14 days prior to splenectomy including Influenza, PCV13,HIB, MenACWY and MenB-4C - PPSV23 due on or after 08/01/20 (8 weeks after PVC13 dose) - Second dose of MCV4 (Menactra) due on or after 08/01/20 (8 weeks from 1st dose) - Second dose of MenB (Bexsero) due on or after 07/04/21 (4 weeks from 1st dose) - Splenectomy tentatively scheduled for 07/16/2021 - No indication for erythropoiesis stimulating agents at this time - Follow up with Dr. Govea on 07/02/2021 - Plan for BMT consult scheduled for 07/24/2021, HLA typing obtained 06/07 #4 Pulmonary Hypertension #5 Failure Heart Right (HCC) #6 Regurgitation Tricuspid - Severe #7 Fluid Overload Unspecified - 5mg/hr IV Lasix Drip - BID weights and strict I&O monitoring, unclear what her dry weight is - ECHO revealed severely enlarged right ventricular size with abnormal systolic strain of - 11% and severe tricuspid regurgitation - BNP elevated to 10,782 upon admission - CTA Chest 06/07: Negative for PE. Scattered GGO compatible with infection/inflammatory vs pulmonary edema. Small left pleural effusion and pericardial effusion. - Cardiology consulted; we appreciate their recommendations: - Continue lasix drip - Sodium restriction diet - Continue VTE PPX - R/O SANDEE - Repeat echo once at dry weight - Evaluation by pulmonary hypertension specialist - If inpatient, request Friday, otherwise pili outpatient #8 Abdominal Pain - Secondary to splenomegaly - Continue home pain regimen with 60 mg PO Morphine ER BID with additonal 15 mg PO Morphine ER QHS - Continue PRN Oxycodone per home regimen - PRN Narcan ordered for inpatient stay given high opioid dosing - Consider consulting palliative medicine or pain service if uncontrollable #9 Anxiety #10 Insomnia - Continue PRN ativan - Note patient was taking 4mg/night at home #10 Tachycardia Sinus - Baseline EKG on 06/06 revealed sinus tachycardia with VR of 113 and QTc of 469 #11 Hyperphosphatemia #12 Hyperuricemia - Phosphorus 5.4, initiated PhosLo - Continue allopurinol - G6PD collected on 06/06 and pending COVID-19 Inpatient Hematology Screening - Per ID recommendations for inpatient hematology patients, COVID-19 testing should occur 24-72 hours prior to chemotherapy (as outpatient for planned admissions and immediately for unplanned admissions) - Pre chemotherapy COVID-19 test was Undetected- Date 06/06/2021 Activity: PAMP Level 2 (chairbound, staff moves patient to chair TID) VTE prophylaxis: enoxaparin Blood transfusions: Informed consent for blood product transfusions completed during this admission.The major and common risks, benefits and alternatives to blood component therapy were discussed withthis patient, who consented to blood component administration. Surrogate Decision Maker: Spouse, Gian Dobbs [phone] Disposition: Pending clinical stability H COUNSELOR Ijeoma Hickman M.D. - 06/07/2021 2:49 PM CST I have seen and examined the patient. I discussed the case and agree with medical team Mrs. 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 Patient was seen in the clinic and was found to have gained weight, fluid retention with concern of heart failure. She was admitted to the hospital for diuresis and management. With IV Lasix drip she lost 5 kg overnight. A bone marrow biopsy was done yesterday. Echocardiogram showed left ventricle ejection fraction 62%, right ventricle systolic pressure at 67, severe tricuspid regurgitation. She alsorequired blood transfusion with modest increment of her hemoglobin. Patient was seen today feels much better since yesterday and was interested to leave the hospital Physical exam Skin no rash Mouth no ulcers Abdomen positive splenomegaly 33 x 7 cm, no hepatomegaly Extremities +2 edema Bilaterally Lungs no crackles Assessment plan #1 CALR/SF3B1 mutated myelofibrosis #2 Massive splenomegaly #3 Transfusion-dependent anemia #4 Heart failure #5 Pulmonary hypertension This is a very complex case with advanced stage myelofibrosis and failure to multiple therapies. From the heart perspective we appreciate the help of our platform consultant, we will be careful in her diuresis specially in the setting of pulmonary hypertension. From the pulmonary hypertension perspective, I think we need to proceed with bone marrow scan to rule out pulmonary extramedullary hematopoiesis. If positive she may benefit from palliative radiation to the lungs From future splenectomy planning, will proceed with vaccination. This will need to be discussed withanesthesia specially in the setting of severe pulmonary hypertension We will follow-up on the approval of fedratinib before we initiate this therapy. We will follow-up on the thiamine level. Once approved we can consider starting fedratinib. Will continue to transfuse the patient with blood and diuresis, unfortunately she is getting suboptimal response potentially due to this massive splenomegaly and blood sequestration. No evidence of bleed Finally we had a long discussion today about discharge, she is unstable for discharge today with several active issues. If she is insisting on discharge we should hold on starting fedratinib as is not approved. H COUNSELOR Lida Amanda, Katrina.Ph. - 06/06/2021 2:12 PM CST Pharmacist Progress Note 51 y.o. female with primary myelofibrosis admitted for treatment initiation/workup due to progressive symptomatic disease. PMH: anixety OBJECTIVE Home medications being held/changed: ibuprofen, vasyl-seltzer gold tablet, sennosides --> senna/docusate, morphine 15 mg IR qHS --> morphine 15 mg ER qHS Patient own medications: None VTE prophylaxis: enoxaparin GI prophylaxis: none Antimicrobial prophylaxis: none # Myelofibrosis (dx 2016) ?? Diagnosed in 2016 with CALR and SF3B1 mutated primary myelofibrosis. S/p treatment with Jakafi [id number] with no response, 3 cycles of 9-ING (off study 08/03/20). Now transfusion dependent with massivesplenomegaly. ASSESSMENT / PLAN 1. Symptomatic myelofibrosis ?? Bone marrow biopsy 06/06/21 ?? Considering starting fedratinib as an outpatient post DC ?? Thiamine level pending, if low will need repletion started as to not delay potential fedratinib start outpatient ?? Baseline amylase, lipase, Scr, BUN, LFTs drawn 06/06 ?? At this time does not appear that fedratinib will be started while patient admitted, if this changes drug will need to be ordered ?? Allopurinol prior to admission to hyperuricemia, uric acid level pending 2. Pain secondary to splenomegaly ?? Morphine 60 mg ER BID. Patient's morphine 15 mg IR qHS dose changed to ER dose at bedtime given in addition to 60 mg ER dose for total of 75 mg ER at bedtime ?? Oxycodone 10 mg IR available prn for breakthrough pain ?? Scheduled miralax and prn senokot available for constipation management 3. Splenectomy ?? Abdominal ultrasound for spleen measurement ?? Patient being evaluated for potential splenectomy - tentatively scheduled for 07/16/2021 ?? Given 06/06/21: PCV13 x1, MCV4 x1, Hib x 1, Men B x 1, influenza x 1 ?? Future immunizations needed after discharge ?? PPSV23 on or after 08/01/20 (8 weeks post PCV13 dose) ?? Meningococcal (Menactra) on or after 08/01/20 (8 weeks post first dose) ?? Meningitis (Bexsero) on or after 07/04/21 (4 weeks post first dose) 4. Lower extremity swelling/new heart failure? ?? LE ultrasound to rule out DVT: negative ?? Abdominal ultrasound to rule out intraabdominal thromboses: negative ?? NT-Pro BNP: >10,000 ?? ECHO: severely enlarged R ventricle with abnormal systolic straoi and severe tricuspid regurg --> Lasix drip at 10 mg/hr initiated (goal net negative 2 L/24 hours) + Cards consulted Changes to medications anticipated at discharge: New: TBD Changes: TBD Discontinue: TBD Rx approval pending: fedratinib (submitted by outpatient pharmacist on 06/06/21) Dispo: TBHaydee Beltran Pharm.D. H COUNSELOR documented in this encounter H&P Notes Margy Frazier P.A.-C. - 06/06/2021 12:15 PM CST REFERRING PHYSICIAN Patient Care Team: Janusz Govea M.B.B.S. as Primary Home Worker (Hematology) HEMATOLOGY 2 SERVICE (service pager [phone]) SUBJECTIVE CHIEF COMPLAINT / REASON FOR VISIT Ms. Dobbs is a 51 y.o. female with a history of Myelofibrosis (HCC) being admitted for transfusion support and further evaluation. HISTORY OF PRESENT ILLNESS I reviewed the pertinent Oncology/Hematology history as outlined in the Oncology history section of the EMR. The following portions of the patient's history were reviewed and updated as appropriate: allergies,current medications, family history, medical history, social history, surgical history and problem list Ms. Jennifer Dobbs is a 51-year-old female who presents to station 72 accompanied by her after being seen in clinic by Dr. Govea. She has a longstanding see history of myelofibrosis and has previously been treated with Jakafi, Alisertib and 9-ING study. She has been following locally and receiving erythropoiesis stimulating agents. She shares that prior to her myelofibrosis she has no othersignificant past medical history. Over the past 2 weeks she has had increasing pain, rapid fluid accumulation and increasing transfusion needs. She reports that she has gained 30-40 lbs in the past twoweeks and is normally not this edematous. She also has significant abdominal fullness and feels bloat ed. Her legs are uncomfortably taught and she feels she has fluid from her toes to the top of her head. She has been having 8 out of 10 abdominal pain that has been progressively worsening. She was evaluated by the endocrine and metabolic surgery team this morning for consideration of splenectomy. She has had ongoing dyspnea and orthopnea. Her appetite is significantly impaired. She shares that herbowel movements have been fluctuating between constipation and diarrhea. She also shares that she has several cavities she has not been able to get filled due to COVID and not being able to get into the dentist. She denies any recent fever, chills, headache, dizziness, chest pain, palpitations, melena, hematochezia and other signs of bleeding. REVIEW OF SYSTEMS A 10 point review of systems was completed and found to be negative except as listed in the HPI. OBJECTIVE VITAL SIGNS Temperature: [36.5 ??C-37 ??C] 37 ??C Resp Rate: [16] 16 Blood Pressure: (108-110)/(61-73) 110/61 SpO2: [95 %] 95 % Pulse Rate: [108-120] 108 DIAGNOSTIC FINDINGS I have reviewed imaging, and other diagnostic studies. Clinically significant abnormal findings are discussed under assessment and plan. PHYSICAL EXAM Constitutional: Chronically ill appearing female in no acute distress. Skin: Warm and dry. Free of rashes and lesions. ENT: Moist mucous membranes free of lesions. Poor dentition. Cardiac: Regular rate and rhythm, no murmur, rub or gallop. Lungs: Lungs sounds clear to auscultation bilaterally. No wheezes, rales or rhonchi. Abdomen: Grade 4 splenomegaly with border palpable at the umbilicus. Abdomen is protuberent and taught. Non-tender to palpation. Bowel sounds present. Extremities: 3+ lower extremity edema with sacral pitting. Moves all 4 independently. Neuro: Alert and oriented. No focal deficits noted Psych: Appropriate affect. ASSESSMENT / PLAN Ms. Jennifer Dobbs is a 51 y.o. female with a history of myelofibrosis. She was initially diagnosedin August 2015 after presenting to the local ED after developing severe left upper quadrant pain and found to have marked splenomegaly. She was evaluated by a local java developer analyst and diagnosed with CALR mutated myelofibrosis. She was initiated on Jakafi at the time of diagnosis however this caused her to be transfusion dependent so it was discontinued. After failing Jakafi she presented to [facility] for further recommendations and was enrolled in the [id number] clinical study. A myeloproliferative neoplasm panel was done at [place] on that confirmed CALR and revealed that she was negative for JAK2 V617F. Most recent bone marrow biopsy at [facility] was done on 06/01/2020 and revealed persistent chronic myeloid neoplasm with no increase in blasts, grade 3 myelofibrosis and 20-30% sideroblasts. Cytogenetics revealed 13q deletion. NGS revealed CALR and SF3B1. She most recently was treated per 9-ING clinical trial having received her last dose on 08/03/2020. Most recently she has been following locally with Dr. Cr and receiving erythropoiesis stimulating agents and transfusion support. She presented for follow up with Dr. Govea on 06/06/21 due to excess fluid accumulation and increasing pain and was admitted to the hematology 2 service for further evaluation and clinical optimization. Past Medical History: Generalized Anxiety Disorder, Hypertension (not on medical management), Chronic Pain Transfuse to keep hemoglobin > 7 and platelets > 10K. Patient does not require premedications prior to RBCs and platelets. #1 Myelofibrosis (HCC) #2 Splenomegaly Acquired - Secondary to #1 #3 Pancytopenia (HCC) - Secondary to #1 - Transfuse 1 unit of pRBC and will obtain Hgb following to assess response - Obtain bone marrow biopsy on 06/06 with sedation - Obtain baseline ECHO on 06/06 - Bilateral lower extremity doppler on 06/06 negative for acute DVT - Complete abdomin U/S with doppler on 06/06 - results pending - Plan to initiate fedraitinib 200 mg daily once discharge and patient has supply - Obtain baseline thiamine, amylase and lipase prior to initiating - collected 06/06 and pending - Prior authorization is pending - Will require CBC and CMP within 1 week of start of baseline - pt to notify Dr. Govea once she has received her supply - Was evaluated by endocrine and metabolic surgery on 06/06 with plans for splenectomy - Immunizations ideally 14 days prior to splenectomy including Influenza, PCV13,HIB, MenACWY and MenB-4C - PPSV23 due on or after 08/01/20 (8 weeks after PVC13 dose) - Second dose of MCV4 (Menactra) due on or after 08/01/20 (8 weeks from 1st dose) - Second dose of MenB (Bexsero) due on or after 07/04/21 (4 weeks from 1st dose) - Splenectomy tentatively scheduled for 07/16/2021 - No indication for erythropoiesis stimulating agents at this time - Follow up with Dr. Govea on 07/02/2021 - Plan for BMT consult scheduled for 07/24/2021, HLA typing ordered to be obtained with AM labs #4 Failure Heart Right (HCC) #5 Regurgitation Tricuspid - Severe #6 Fluid Overload Unspecified - Administer 40 mg IV lasix prior to blood transfusion - Patient has very poor mobility at this time - marie catheter offered however patient declined - BID weights and strict I&O monitoring, unclear what her dry weight is UPDATE: ECHO revealed severely enlarged right ventricular size with abnormal systolic strain of -11%and severe tricuspid regurgitation. Initiated lasix drip at 10 mg/hr with goal of being net [id number] in 24 hours, plan to titrate up pending response. Consult placed for cardiology. Pro-BNP ordered. #7 Abdominal Pain - Secondary to splenomegaly - Continue home pain regimen with 60 mg PO Morphine ER BID with additonal 15 mg PO Morphine ER QHS - Continue PRN Oxycodone per home regimen - PRN Narcan ordered for inpatient stay given high opioid dosing - Consider consulting palliative medicine or pain service if #8 Anxiety #9 Insomnia - Continue PRN ativan per home regimen - Note patient was taking 1-2 tablets regularly each night #10 Tachycardia Sinus - Baseline EKG on 06/06 revealed sinus tachycardia with VR of 113 and QTc of 469 #11 Hyperphosphatemia - Phosphorus 4.6 on 06/06 - will continue to monitor for now, if increasing consider PhosLo #12 History of Hyperuricemia - Continue allopurinol per home regimen - G6PD collected on 06/06 and pending COVID-19 Inpatient Hematology Screening - Per ID recommendations for inpatient hematology patients, COVID-19 testing should occur 24-72 hours prior to chemotherapy (as outpatient for planned admissions and immediately for unplanned admissions) - Pre chemotherapy COVID-19 test was Pending - Date 06/06/2021 Activity: PAMP Level 2 (chairbound, staff moves patient to chair TID) VTE prophylaxis: enoxaparin Blood transfusions: Informed consent for blood product transfusions completed during this admission.The major and common risks, benefits and alternatives to blood component therapy were discussed withthis patient, who consented to blood component administration. Code status: Full Code Surrogate Decision Maker: Spouse, Gian Dobbs [phone] Disposition: Pending clinical course. H COUNSELOR documented in this encounter Procedure Notes Stephan Fan R.N. - 06/06/2021 4:00 PM CSTAssociated Order(s): Biopsy Bone Marrow Post-Procedure Diagnose(s): Myelofibrosis (HCC) Biopsy Bone Marrow Date/Time: 06/06/2021 4:00 PM Performed by: Stephan Fan R.N. Authorized by: Margy Frazier P.A.-C. Care team members present 1. Stephan Fan R.N. 2. Remberto Ward MLS(ASCP) PROCEDURE DETAILS Procedure: Bone Marrow biopsy and Bone Marrow aspiration Bone marrow biopsy Laterality: Left Location of biopsy: Posterior iliac crest Patient position: Side lying Type of Needle: Manual bone marrow biopsy needle Findings: Aspirate obtained with spicules noted Bone marrow aspiration Aspirate volume (mL): 18 (attempted 3 times) CONSENT Consent obtained: written UNIVERSAL PROTOCOL All relevant documentation and testing were reviewed and available. All required blood products, implants, devices and or special equipment were made available as applicable. Pre-procedure verificationwas conducted and the correct site was marked if required. A fire risk assessment was done as applicable. The procedural time-out was conducted prior to performing the procedure and confirmed in a procedural pause. PRE-PROCEDURE DETAILS Appropriate hand hygiene, gown, cap, mask, protective eyewear, sterile gloves, skin preparation, sterile drape, and strict aseptic technique were utilized as applicable for the procedure.: yes Site preparation: chlorhexidine SEDATION / ANESTHESIA Anesthesia method: local infiltration Local infiltrate type: lidocaine POST-PROCEDURE DETAILS Procedure completed successfully: yes Procedure tolorated: Well Post procedure pain scale: 0/10 Complications: no apparent complications COMMENTS 100 mg 1% Lidocaine given SQ. H COUNSELOR documented in this encounter Consult Notes Liborio Urbano M.D. - 06/07/2021 11:53 AM CST REFERRAL SOURCE Internal physician referral ?? CHIEF COMPLAINT / REASON FOR VISIT Right heart failure and anasarca ?? HISTORY OF PRESENT ILLNESS Ms. Dobbs is a delightful 51-year-old female who is here with her , with a formal diagnosis of myelofibrosis since 2016. She has been included in some clinical trials and is receiving treatmentby Hematology. She has massive splenomegaly, anxiety disorder and chronic pain. Of for the past 3 weeks she has been increasing in weight, with increased abdominal girth, she reports approximately 30 lb of weight gain, with worsening shortness of breath and orthopnea. She quit smoking cigarettes in 2012 and does not have COPD that she knows of, unknown if she has obstructive sleep apnea, no history of diabetes, kidney disease heart attack or stroke. I have reviewed her echocardiogram from yesterday which shows normal left ventricular size and function, severe right ventricular enlargement moderate decrease in function, significant pulmonary hypertension more than 50% of systemic, dilated inferior vena cava and severe tricuspid regurgitation due to annular dilatation and some leaflet tethering. She had an enlarged inferior vena cava and small circumferential pericardial effusion. A CT angiogram this morning shows no acute pulmonary embolism withscattered ground-glass opacities which could be infectious versus pulmonary edema and I think it is the latter. Small left pleural effusion. Laboratory showed severe anemia in the 5 range which is currently 7.3 after transfusion, with elevated creatinine 1.22, liver function tests consistent congestive hepatopathy, NT proBNP 11,000. The following portions of the patient's history were reviewed and updated as appropriate: current medications, medical history, problem list, labs, diagnostics tests.. I also reviewed pertinent clinical notes in the electronic health record. REVIEW OF SYSTEMS A comprehensive review of systems was completed; pertinent abnormalities are included in the Historyof Present Illness. All others negative. MEDICATIONS Current Medications: ??? allopurinoL tablet 300 mg (ZYLOPRIM), Daily ??? calcium carbonate chewable tablet 400 mg of calcium (TUMS), TID PRN ??? enoxaparin injection 40 mg (LOVENOX), Q24H CODY ??? folic acid tablet 400 mcg, Daily ??? LORazepam tablet 1 mg (ATIVAN), TID PRN ??? LORazepam tablet 1 mg (ATIVAN), Daily at bedtime ??? melatonin tablet 5 mg, At bedtime PRN ??? morphine ER tablet 60 mg (MS CONTIN), Q12H AND morphine ER tablet 15 mg (MS CONTIN), Daily at bedtime ??? naloxone injection 0.4 mg (NARCAN), PRN ??? ondansetron ODT disintegrating tablet 8 mg (ZOFRAN-ODT), Q8H PRN OR ondansetron (PF) injection 8 mg (ZOFRAN), Q8H PRN ??? oxyCODONE IR tablet 10 mg (ROXICODONE), Q4H PRN ??? polyethylene glycol powder packet 17 g (MIRALAX), Daily ??? prochlorperazine injection 10 mg (COMPAZINE), Q6H PRN OR prochlorperazine tablet 10 mg (COMPAZINE), Q6H PRN ??? sennosides-docusate sodium 8.6-50 mg per tablet 2 tablet (SENOKOT-S), BID PRN ??? simethicone chewable tablet 80 mg (MYLICON), 4x Daily PRN ??? thrombin (recombinant) topical solution 5,000 Units (RECOTHROM), Once PRN VITALS Temperature: 36.9 ??C Heart Rate: 117 Resp Rate: 22 Blood Pressure: 118/58 SpO2: 100 % Flow Rate (L/min): 2 L/min Height: 168.5 cm Weight: 105 kg BMI (Calculated): 36.9 kg/m?? Body mass index is 36.91 kg/m??. PHYSICAL EXAMINATION General: This is a well-developed patient who is awake, in mild respiratory distress. Psychiatric: Oriented and coherent. Eyes: Conjunctiva not icteric. Vessels: Neck is supple, with prominent jugular venous distension and V-waves at 50??, carotid upstrokes are present and symmetric Spine: Not much sacral fluid Lungs: Clear. Heart: Chest has no deformities, lifts or thrills. Heart sounds are regular tachycardic without murmurs or S3. Abdomen: Benign with massive splenomegaly and some hepatomegaly Extremities: Hands are normal without nail lesions. 4+ edema of lower extremities still . DIAGNOSTIC REVIEW All labs and diagnostic studies were reviewed. As above. ?? 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 Dobbs has been admitted with profound anemia in the setting of myelofibrosis and asyndrome of right heart failure with anasarca, orthopnea, and likely some mild pulmonary edema. It appears likely that the trigger for the right ventricular enlargement and dysfunction that has led to severe tricuspid regurgitation, is the elevated pulmonary pressure. Therefore, I have explained to her that we need to search for the cause of her pulmonary hypertension and in the meantime decompress her volume overload aggressively. I doubt that she has group 2 or 3 pulmonary hypertension, it seems more likely that she has group 1 or group [address] is negative for pulmonary embolism. I have explained that there is potential medical treatment for this, and that it is important to be evaluated by a pulmonaryhypertension specialist. I would recommend to continue aggressive diuresis with intravenous continues Lasix infusion checkingelectrolytes and creatinine twice a day for replacement. She has already put out about 3 L and feelsmuch improved with this. However by physical exam she needs more. Specific recommendations: 1. bolus Lasix 40 mg x 1 and restart Lasix drip at 10 milligrams/hour, checking electrolytes and creatinine twice a day//strict in's and out's 2. Heart failure teaching at the bedside including salt consumption. She should not be having more than 4822-4661 mg of sodium per day and currently her salt consumption is high. 3. Continued VT prophylaxis at all times. 4. Rule out obstructive sleep apnea while in the hospital 5. Once she is decompressed and back to her usual weight, repeat an echocardiogram to see the state of her tricuspid regurgitation and her pulmonary hypertension. I would then obtain a consultation with a pulmonary hypertension specialist for further evaluation which may include right and left heart ca theterization and trial of medications.She should be seen by a PH specialist on friday if she's still in-house or immediately as an outpatient. I have explained all these issues to her in great detail. We will be following with you. Liborio Urbano M.D. 06/07/2021 H COUNSELOR documented in this encounter Nursing Notes Clemencia Trujillo R.N. - 06/11/2021 4:32 PM CST Problem: DISCHARGE PLANNING Goal: Patient discharge needs identified Outcome: Adequate for Discharge Shift Goals: Clinical Goals for the Shift: Pt will shower on shift Identify possible barriers to meeting goals/advancing plan of care: NA End of Shift Summary: AVS, medications and education were reviewed with patient. Patient stated understanding and will follow up on [address] outpatient appointment tomorrow morning. Patient was discharged to [facility] and escort assisted patient to vehicle. H COUNSELOR Mariann Martin R.N. - 06/11/2021 2:47 PM CST Problem: PAIN - ADULT Goal: PT VERBALIZES/DEMONSTRATES [...] needs identified Outcome: Adequate for Discharge Problem: POTENTIAL OR ACTUAL PRESSURE INJURY-ADULT Goal: Manage sensory Perception deficits to maintain and/or improve skin integrity Outcome: Adequate for Discharge Goal: Maintain optimal skin moisture to ensure or improve skin integrity Outcome: Adequate for Discharge Goal: Achieve optimal activity and/or mobility to maintain or improve skin integrity Outcome: Adequate for Discharge Goal: Nutrient intake appropriate for improving, restoring or maintaining skin integrity Outcome: Adequate for Discharge Goal: Minimize friction and/or shear to maintain or improve skin integrity Outcome: Adequate for Discharge Problem: Compromised Skin Integrity Goal: Skin/Tissue integrity maintained or improved Outcome: Adequate for Discharge Goal: Oral and Nasal mucous membranes remain intact Outcome: Adequate for Discharge Goal: Incisions, wounds, or drain sites healing without S/S of infection Outcome: Adequate for Discharge Problem: Incontinence and/or Moisture Goal: Skin integrity is maintained or improved Outcome: Adequate for Discharge Problem: SAFETY ADULT - RISK FOR FALL AND OR FALL INJURY Goal: Patient remains free from fall/fall injury Outcome: Adequate for Discharge Shift Goals: Clinical Goals for the Shift: Pt will shower on shift Identify possible barriers to meeting goals/advancing plan of care: fatigue Pt showered on shift and will be discharging this evening with follow-up on [facility] [address] tomorrow H COUNSELOR Wolfgang Owens R.N. - 06/08/2021 10:56 PM CST Problem: PAIN - ADULT Goal: PT VERBALIZES/DEMONSTRATES ADEQUATE COMFORT LEVEL OR BASELINE Outcome: Progressing Shift Goals: Clinical Goals for the Shift: pain control, VSS Identify possible barriers to meeting goals/advancing plan of care: none End of Shift Summary: Pt reported that her pain was under control with current pain management regimen, she was able to rest and sleep comfortable. She received one unit of RBCs, and well tolerated thetransfusion, no signs and symptoms of reaction noted. VSS and PO intake adequate, UOP in large volume with lasix drip, will continue to monitor. H COUNSELOR Paulina Thompson R.N. - 06/08/2021 6:11 AM CST Shift Goals: Clinical Goals for the Shift: Patient will have adequate pain control Identify possible barriers to meeting goals/advancing plan of care: none End of Shift Summary: Reviewed care plan and remains appropriate. Will continue to monitor. Problem: PAIN - ADULT Goal: PT VERBALIZES/DEMONSTRATES ADEQUATE COMFORT LEVEL OR BASELINE Outcome: Progressing H COUNSELOR documented in this encounter Miscellaneous Notes Hospital Course - Laurita Reyes, Judit.-Vanda., M.S. - 06/06/2021 3:28 PM YOUTH COUNSELOR Mrs. 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 She was initially diagnosed inFebruary 2016 after presenting to local ED after developing severe left upper quadrant pain and found to have marked splenomegaly. She was evaluated by a local java developer analyst and diagnosed with CALR mutated myelofibrosis. She was initiated on Jakafi at the time of diagnosis however this caused her to betransfusion dependent so it was discontinued. She presented to [facility] for further recommendations and was enrolled in the [id number] clinical study. A myeloproliferative neoplasm panel was done at [place] on 05/01/2016 that confirmed CALR and revealed that she was negative for JAK2 V617F. BMBx on 06/01/2020 and revealed persistent chronic myeloid neoplasm with no increase in blasts, grade 3 myelofibrosis and 20-30% sideroblasts. Cytogenetics revealed 13q deletion. NGS revealed CALR and SF3B1. She most recently was treated per 9-ING clinical trial having received her last dose on 08/03/2020. She has been following locally with Dr. Cr and receiving erythropoiesis stimulating agents and transfusion support. She presented for follow up with Dr. Govea on 06/06/21 due to excess fluid accumulation and increasing pain and was admitted to the Hematology 2 service for further evaluation and clinical optimization. Bone marrow biopsy from 06/06 findings were consistent with the prior clinical and morphologic diagnosis of primary myelofibrosis harboring CALR and SF3B1 mutations.. She required multiple red blood cell transfusions. Plan is for her to initiate fedratinib and a prior authorization has been initiated.She is to contact Dr. Govea once she has obtained the medication as she will need a CBC/CMP one week after initiation. She received aggressive diuresis for her excess fluid volume with lasix drip and oral torsemide. Shedecreased 13 kg from admission and urinated >15 L, resulting in weight close to baseline. Echo was performed 06/06 which revealed severe tricuspid regurgitation, right sided heart failure, and pulmonary hypertension. Cardiology was consulted who guided diuretic management, recommended low sodium diet, and rule out of SANDEE. She underwent overnight pulse oximetry 06/10-06/11; results PENDING. Repeat echo was completed 06/11 which did not reveal a significant change. She has scheduled follow up with the Pulmonary Hypertension clinic on 06/29. Due to the chance of MF affecting her pulmonary system, a nuclear medicine bone marrow scan was performed 06/11 with minimally elevated diffuse activity in both lungs, favored to be related to scatter from liver/spleen, although mild diffuse pulmonary extramedullary hematopoiesis could appear similar.Per Dr. Govea, no role for palliative radiation with these results. She should continue current management with cardiology. She will follow up on [facility] on 06/12. She is scheduled to follow up with Dr. Goeva on 07/02. She has a BMT consult on 07/23/21 and HLA typing was collected while inpatient. She is planned to undergo splenectomy on 07/16/2020. She received recommended vaccinations for a patient having splenectomy ofPCV13, HIB, Miller, MenB and influenza on 06/06, please see notes for dates when second vaccinations are due. Jennifer Dobbs will be contacted by our Desk [employer] Coiling Machine Setter prior to their next planned admission to make arrangements for preadmission COVID testing. COVID testing results should be completed and resulted within 48-72 hrs prior to hospital admission. I saw and evaluated Jennifer Dobbs today and provided counseling [id number] at bedside. I personally spent greater than 30 minutes in counseling and discussion with the patient and in coordination of care as described above to facilitate the hospital discharge. Please contact the [facility] at [phone] with any questions or concerns. H COUNSELOR documented in this encounter Plan of Treatment Pending Results Name Type Priority Associated Diagnoses Date/Ti me Prepare Red Blood Blood Bank Routine 06/06/2021 9:27 AM YOUTH COUNSELOR Cells, 1 Units Prepare Red Blood Blood Bank Routine 06/06/2021 9:27 AM YOUTH COUNSELOR Cells, 1 Units Prepare Red Blood Blood Bank Routine 06/06/2021 9:27 AM YOUTH COUNSELOR Cells, 1 Units Prepare Red Blood Blood Bank Routine 06/06/2021 9:27 AM YOUTH COUNSELOR Cells, 1 Units Prepare Red Blood Blood Bank Routine 06/06/2021 9:27 AM YOUTH COUNSELOR Cells, 1 Units Prepare Red Blood Blood Bank Routine 06/09/2021 12:25 AM YOUTH COUNSELOR Cells, 1 Units Prepare Red Blood Blood Bank Routine 06/09/2021 12:25 AM YOUTH COUNSELOR Cells, 1 Units Scheduled Orders Name Type Priority Associated Diagnoses Order S chedule Bedside anesthesia Procedures STAT Once for 1 Occurrences scheduling starting 2020 until documented as of this encounter Procedures Procedure Name Priority Date/Time Associated Comments Diagnosis TRANSFUSE RED BLOOD Routine 06/11/2021 1:50 CELLS PM YOUTH COUNSELOR NM BONE MARROW SCAN RAD - Routine 06/11/2021 Results for WHOLE BODY (most inpatients 11:30 AM YOUTH COUNSELOR this proced ure and all are in the outpatients) results section. (TTE) 2D LIMITED WITH Routine 06/11/2021 Result s for COLOR AND DOPPLER 10:28 AM YOUTH COUNSELOR this proce dure are in the results section. VRE PCR Routine 06/11/2021 8:09 Results for AM YOUTH COUNSELOR this procedure are in the results section. RT PULSE OXIMETRY, Routine 06/11/2021 7:11 Result s for OVERNIGHT AM YOUTH COUNSELOR this procedure are in the results section. MORPHOLOGY EVAL Routine 06/11/2021 5:44 Results f or (SPECIAL SMEAR) AM YOUTH COUNSELOR this procedu re are in the results section. CBC NO CALL BACK, Routine 06/11/2021 5:44 Results for REFLEX T/S AM YOUTH COUNSELOR this procedure are in the results section. NT-PRO B-TYPE Routine 06/11/2021 5:44 Results for NATRIURETIC PEPTIDE AM YOUTH COUNSELOR this pro cedure (BNP), S are in the results section. URIC ACID, S/P Routine 06/11/2021 5:44 Results fo r AM YOUTH COUNSELOR this procedure are in the results section. PHOSPHORUS Routine 06/11/2021 5:44 Results for (INORGANIC), S AM YOUTH COUNSELOR this procedur e are in the results section. MAGNESIUM, S Routine 06/11/2021 5:44 Results for AM YOUTH COUNSELOR this procedure are in the results section. COMPREHENSIVE Routine 06/11/2021 5:44 Results for METABOLIC PANEL, S/P AM YOUTH COUNSELOR this pr ocedure are in the results section. MORPHOLOGY EVAL Routine 06/10/2021 5:44 Results f or (SPECIAL SMEAR) AM YOUTH COUNSELOR this procedu re are in the results section. CBC NO CALL BACK, Routine 06/10/2021 5:44 Results for REFLEX T/S AM YOUTH COUNSELOR this procedure are in the results section. URIC ACID, S/P Routine 06/10/2021 5:44 Results fo r AM YOUTH COUNSELOR this procedure are in the results section. PHOSPHORUS Routine 06/10/2021 5:44 Results for (INORGANIC), S AM YOUTH COUNSELOR this procedur e are in the results section. MAGNESIUM, S Routine 06/10/2021 5:44 Results for AM YOUTH COUNSELOR this procedure are in the results section. BASIC METABOLIC Routine 06/10/2021 5:44 Results f or PANEL, S/P AM YOUTH COUNSELOR this procedure are in the results section. TRANSFUSE RED BLOOD Routine 06/09/2021 3:36 CELLS PM YOUTH COUNSELOR CBC NO CALL BACK, Timed 06/09/2021 2:05 Results for REFLEX T/S PM YOUTH COUNSELOR this procedure are in the results section. URIC ACID, S/P Timed 06/09/2021 2:05 Results fo r PM YOUTH COUNSELOR this procedure are in the results section. PHOSPHORUS Timed 06/09/2021 2:05 Results for (INORGANIC), S PM YOUTH COUNSELOR this procedur e are in the results section. BASIC METABOLIC Timed 06/09/2021 2:05 Results f or PANEL, S/P PM YOUTH COUNSELOR this procedure are in the results section. MORPHOLOGY EVAL Routine 06/09/2021 Results for (SPECIAL SMEAR) 12:25 AM YOUTH COUNSELOR this procedu re are in the results section. CBC NO CALL BACK, Routine 06/09/2021 Results fo r REFLEX T/S 12:25 AM YOUTH COUNSELOR this procedure are in the results section. PREPARE RED BLOOD Routine 06/09/2021 CELLS 12:25 AM YOUTH COUNSELOR PREPARE RED BLOOD Routine 06/09/2021 CELLS 12:25 AM YOUTH COUNSELOR TYPE AND SCREEN Routine 06/09/2021 Results for 12:25 AM YOUTH COUNSELOR this procedure are in the results section. URIC ACID, S/P Routine 06/09/2021 Results for 12:25 AM YOUTH COUNSELOR this procedure are in the results section. PHOSPHORUS Routine 06/09/2021 Results for (INORGANIC), S 12:25 AM YOUTH COUNSELOR this procedur e are in the results section. BASIC METABOLIC Routine 06/09/2021 Results for PANEL, S/P 12:25 AM YOUTH COUNSELOR this procedure are in the results section. TRANSFUSE RED BLOOD Routine 06/08/2021 6:23 CELLS PM YOUTH COUNSELOR CBC NO CALL BACK, Timed 06/08/2021 2:50 Results for REFLEX T/S PM YOUTH COUNSELOR this procedure are in the results section. URIC ACID, S/P Timed 06/08/2021 2:50 Results fo r PM YOUTH COUNSELOR this procedure are in the results section. PHOSPHORUS Timed 06/08/2021 2:50 Results for (INORGANIC), S PM YOUTH COUNSELOR this procedur e are in the results section. MAGNESIUM, S Timed 06/08/2021 2:50 Results for PM YOUTH COUNSELOR this procedure are in the results section. BASIC METABOLIC Timed 06/08/2021 2:50 Results f or PANEL, S/P PM YOUTH COUNSELOR this procedure are in the results section. TRANSFUSE RED BLOOD Routine 06/08/2021 CELLS 10:40 AM YOUTH COUNSELOR MORPHOLOGY EVAL Routine 06/08/2021 Results for (SPECIAL SMEAR) 12:09 AM YOUTH COUNSELOR this procedu re are in the results section. CBC NO CALL BACK, Routine 06/08/2021 Results fo r REFLEX T/S 12:09 AM YOUTH COUNSELOR this procedure are in the results section. COMPREHENSIVE Routine 06/08/2021 Results for METABOLIC PANEL, S/P 12:09 AM YOUTH COUNSELOR this pr ocedure are in the results section. NT-PRO B-TYPE Routine 06/08/2021 Results for NATRIURETIC PEPTIDE 12:08 AM YOUTH COUNSELOR this pro cedure (BNP), S are in the results section. URIC ACID, S/P Routine 06/08/2021 Results for 12:08 AM YOUTH COUNSELOR this procedure are in the results section. PHOSPHORUS Routine 06/08/2021 Results for (INORGANIC), S 12:08 AM YOUTH COUNSELOR this procedur e are in the results section. HAPTOGLOBIN, S Routine 06/08/2021 Results for 12:01 AM YOUTH COUNSELOR this procedure are in the results section. URIC ACID, S/P Timed 06/07/2021 4:18 Results fo r PM YOUTH COUNSELOR this procedure are in the results section. PHOSPHORUS Timed 06/07/2021 4:18 Results for (INORGANIC), S PM YOUTH COUNSELOR this procedur e are in the results section. BASIC METABOLIC Timed 06/07/2021 4:18 Results f or PANEL, S/P PM YOUTH COUNSELOR this procedure are in the results section. HEMOGLOBIN, B Timed 06/07/2021 Results for 11:17 AM YOUTH COUNSELOR this procedure are in the results section. CT CHEST ANGIOGRAM RAD - Semiurgent 06/07/2021 Resul ts for WITH IV CONTRAST (Fast; most ED 10:15 AM YOUTH COUNSELOR this proc edure patients; some are in the inpatients) results section. TRANSFUSE RED BLOOD Routine 06/07/2021 7:23 CELLS AM YOUTH COUNSELOR SPSMA RESULT Routine 06/07/2021 6:41 Results for AM YOUTH COUNSELOR this procedure are in the results section. HLA CLASS II TYPING Routine 06/07/2021 5:47 Resul ts for HIGHRES,RECIP,B AM YOUTH COUNSELOR this procedu re are in the results section. HLA CLASS I TYPING Routine 06/07/2021 5:47 Result s for HIGHRES,RECIP,B AM YOUTH COUNSELOR this procedu re are in the results section. MORPHOLOGY EVAL Routine 06/07/2021 5:47 Results f or (SPECIAL SMEAR) AM YOUTH COUNSELOR this procedu re are in the results section. CBC NO CALL BACK, Routine 06/07/2021 5:47 Results for REFLEX T/S AM YOUTH COUNSELOR this procedure are in the results section. HLA CLASS II SAB Routine 06/07/2021 5:47 Results for ANTIBODY SCREEN AM YOUTH COUNSELOR this procedu re are in the results section. HLA CLASS I SAB Routine 06/07/2021 5:47 Results f or ANTIBODY SCREEN AM YOUTH COUNSELOR this procedu re are in the results section. PROTHROMBIN TIME Routine 06/07/2021 5:47 Results for (PT), P AM YOUTH COUNSELOR this procedure are in the results section. URIC ACID, S/P Routine 06/07/2021 5:47 Results fo r AM YOUTH COUNSELOR this procedure are in the results section. PHOSPHORUS Routine 06/07/2021 5:47 Results for (INORGANIC), S AM YOUTH COUNSELOR this procedur e are in the results section. MAGNESIUM, S Routine 06/07/2021 5:47 Results for AM YOUTH COUNSELOR this procedure are in the results section. COMPREHENSIVE Routine 06/07/2021 5:47 Results for METABOLIC PANEL, S/P AM YOUTH COUNSELOR this pr ocedure are in the results section. HLA-DPB1 CONFIRM Routine 06/07/2021 5:40 Results for TYPING, RECIP,BUC AM YOUTH COUNSELOR this proce dure are in the results section. HLA-ABDR CONFIRM Routine 06/07/2021 5:40 Results for TYPING, RECIP,BUC AM YOUTH COUNSELOR this proce dure are in the results section. BILIRUBIN DIRECT, S/P Routine 06/07/2021 5:29 Res ults for AM YOUTH COUNSELOR this procedure are in the results section. TRANSFUSE RED BLOOD Routine 06/06/2021 8:28 CELLS PM YOUTH COUNSELOR NT-PRO B-TYPE Routine 06/06/2021 6:54 Results for NATRIURETIC PEPTIDE PM YOUTH COUNSELOR this pro cedure (BNP), S are in the results section. HEMOGLOBIN, B Timed 06/06/2021 6:54 Results for PM YOUTH COUNSELOR this procedure are in the results section. SARS CORONAVIRUS 2, Routine 06/06/2021 5:32 Resul ts for MOLECULAR DETECTION, PM YOUTH COUNSELOR this pr ocedure PCR, VARIES are in the results section. VRE PCR Routine 06/06/2021 5:32 Results for PM YOUTH COUNSELOR this procedure are in the results section. (TTE) 2D ECHO DOPPLER STAT 06/06/2021 5:17 Res ults for COLOR PM YOUTH COUNSELOR this procedure are in the results section. TRANSFUSE RED BLOOD Routine 06/06/2021 4:28 CELLS PM YOUTH COUNSELOR [place] DX BONE MARROW BX STAT 06/06/2021 4:00 Myelofibrosis (HC C) Results for & ASPIR PM YOUTH COUNSELOR this procedure are in the results section. US ABDOMEN COMPLETE RAD - Semiurgent 06/06/2021 3:11 R esults for WITH LIVER DOPPLER (Fast; most ED PM YOUTH COUNSELOR this pr ocedure patients; some are in the inpatients) results section. US LOWER EXTREMITY RAD - Semiurgent 06/06/2021 3:06 Re sults for VEINS BILATERAL (Fast; most ED PM YOUTH COUNSELOR this proce dure patients; some are in the inpatients) results section. HEMATOPATHOLOGY Routine 06/06/2021 1:40 Results f or PM YOUTH COUNSELOR this procedure are in the results section. THIAMIN (VITAMIN B1), STAT 06/06/2021 1:28 Res ults for B PM YOUTH COUNSELOR this procedure are in the results section. [id number] STAT 06/06/2021 1:28 Resul ts for DEHYDROGENASE PM YOUTH COUNSELOR this procedure (G-6-PD), SAVANAH, are in the ERYTHROCYTES, B results section. ACTIVATED PARTIAL STAT 06/06/2021 1:28 Results for THROMBOPLASTIN TIME PM YOUTH COUNSELOR this pro cedure (APTT), P are in the results section. PROTHROMBIN TIME STAT 06/06/2021 1:28 Results for (PT), P PM YOUTH COUNSELOR this procedure are in the results section. FIBRINOGEN, P STAT 06/06/2021 1:28 Results for PM YOUTH COUNSELOR this procedure are in the results section. URIC ACID, S/P STAT 06/06/2021 1:28 Results fo r PM YOUTH COUNSELOR this procedure are in the results section. PHOSPHORUS STAT 06/06/2021 1:28 Results for (INORGANIC), S PM YOUTH COUNSELOR this procedur e are in the results section. LIPASE, S/P STAT 06/06/2021 1:28 Results for PM YOUTH COUNSELOR this procedure are in the results section. AMYLASE, TOT, S STAT 06/06/2021 1:28 Results f or PM YOUTH COUNSELOR this procedure are in the results section. BASIC METABOLIC STAT 06/06/2021 1:28 Results f or PANEL, S/P PM YOUTH COUNSELOR this procedure are in the results section. ECG Routine 06/06/2021 1:11 Results for PM YOUTH COUNSELOR this procedure are in the results section. NGS FOR MYELOID Routine 06/06/2021 Results for NEOPLASMS (NGSHM) 10:19 AM YOUTH COUNSELOR this proce dure are in the results section. CHROMOSOMES, Routine 06/06/2021 Results for HEMATOLOGIC, BM 10:19 AM YOUTH COUNSELOR this procedu re are in the results section. CYTOMEGALOVIRUS AB, Routine 06/06/2021 9:27 Resul ts for IGM AND IGG AM YOUTH COUNSELOR this procedure are in the results section. PREPARE RED BLOOD Routine 06/06/2021 9:27 CELLS AM YOUTH COUNSELOR PREPARE RED BLOOD Routine 06/06/2021 9:27 CELLS AM YOUTH COUNSELOR PREPARE RED BLOOD Routine 06/06/2021 9:27 CELLS AM YOUTH COUNSELOR PREPARE RED BLOOD Routine 06/06/2021 9:27 CELLS AM YOUTH COUNSELOR PREPARE RED BLOOD Routine 06/06/2021 9:27 CELLS AM YOUTH COUNSELOR documented in this encounter Results Transfuse Red Blood Cells : (06/11/2021 3:46 PM YOUTH COUNSELOR) Laurita Reyes P.A.-C., M.S. BLOOD TRANSFUSION ORDER NAGI Transfuse Red Blood Cells : , 1 Units (06/11/2021 3:46 PM YOUTH COUNSELOR) Laurita Reyes P.A.-C., M.S. BLOOD TRANSFUSION ORDER NAGI NM Bone Marrow Scan Whole Body (06/11/2021 11:30 AM YOUTH COUNSELOR) Anatomical Region Laterality Modality Whole body, Nuclear Medicine RST LOS, Nuclear Medicine N/A Nuclear Medicine ARZ LOS, Nuclear Medicine FLA LOS, Nuclear Medicine Specimen (Source) Anatomical Collection Method Collection Time Re ceived Time Location / / Volume Laterality 06/11/2021 1:46 PM YOUTH COUNSELOR Impressions 06/11/2021 1:51 PM YOUTH COUNSELOR Minimally elevated diffuse activity in both lungs, favored to be related to scatter from liver and spleni c activity although mild diffuse pulmonary extramedullary hematopoiesis c ould appear similar. Narrative 06/11/2021 1:51 PM YOUTH COUNSELOR EXAM: ??NM BONE MARROW SCAN WHOLE BODY RADIOPHARMACEUTICAL/MEDS: Route: intravenous technetium Tc 99m sulfur colloid francoise n (Tc-99m SULFUR COLLOID),14.2 millicurie TECHNIQUE: ??Whole body bone marrow scan performed with Tc 99m sulfur colloid. COMPARISON: ??CT chest 06/07/2021. CT ab domen and pelvis 02/16/2021. INDICATION: ??Pulmonary hypertension wit h history of myelofibrosis. FINDINGS: ??Marked hepatosplenomegaly wi th intense radiotracer activity. Elevated radiotracer uptake throughout the visual ized peripheral long bones most notably in the lower extremities. Findings are c onsistent with known myelofibrosis. Visualization of lung activity is partia lly compromised by intervening liver activity and the patient's inability to tolerate lead shielding. However, there is minimally elevated diffuse activity i n both lungs which is favored to be related to scatter from liver and spleni c activity, less likely secondary to diffuse extra medullary hematopoiesis. Procedure Note Meek Goldsmith M.D. - 06/11/2021Format ting of this note might be different from the original. EXAM: NM BONE MARROW SCAN WHOLE BODY RADIOPHARMACEUTICAL/MEDS: Route: intravenous technetium Tc 99m sulfur colloid solutio n (Tc-99m SULFUR COLLOID),14.2 millicurie TECHNIQUE: Whole body bone marrow scan p erformed with Tc 99m sulfur colloid. COMPARISON: CT chest 06/07/2021. CT abdo men and pelvis 02/16/2021. INDICATION: Pulmonary hypertension with history of myelofibrosis. FINDINGS: Marked hepatosplenomegaly with intense radiotracer activity. Elevated radiotracer uptake throughout the visual ized peripheral long bones most notably in the lower extremities. Findings are c onsistent with known myelofibrosis. Visualization of lung activity is partia lly compromised by intervening liver activity and the patient's inability to tolerate lead shielding. However, there is minimally elevated diffuse activity i n both lungs which is favored to be related to scatter from liver and spleni c activity, less likely secondary to diffuse extra medullary hematopoiesis. IMPRESSION: Minimally elevated diffuse activity in b oth lungs, favored to be related to scatter from liver and spleni c activity although mild diffuse pulmonary extramedullary hematopoiesis c ould appear similar. Laurita Reyes P.A.-C., M.S. IMG NM PROCEDURES (TTE) 2D LIMITED WITH COLOR AND DOPPLER (06/11/2021 10:28 AM YOUTH COUNSELOR) P athologist Signature Ejection 59 MC CV EIMS Fraction LV End-Diastolic 52 MC CV EIMS Diameter LV End-Systolic 35 MC CV EIMS Diameter Left ventricular 33 MC CV EIMS stroke volume index Cardiac Output 7.39 MC CV EIMS Cardiac Index 3.59 MC CV EIMS RV 4-Chamber 60 MC CV EIMS Basal Diameter RV 4-Chamber Mid 56 MC CV EIMS Diameter RV 4-Chamber 102 MC CV EIMS Length TAPSE 23 MC CV EIMS Tricuspid 0.14 MC CV EIMS Annular S? TR Vmax 3.41 MC CV EIMS RA Pressure 15 MC CV EIMS RV Systolic 62 MC CV EIMS Pressure TV Regurgitant 41 MC CV EIMS Volume Anatomical Region Laterality Modality Other Specimen (Source) Anatomical Collection Method Collection Time Re ceived Time Location / / Volume Laterality 06/11/2021 8:07 AM YOUTH COUNSELOR Impressions 06/11/2021 11:31 AM YOUTH COUNSELOR Echocardiogram performed per left ventricular function protocol and follow-up assessment of right heart function status-post diuresi s. ??Last full echocardiogram performed 06/06/2021. Echo performed at the patient's bedside ([facility]). ??Patient supine and head of bed elevated to 45 degrees. ??An emia, thyrotoxicosis, or another high output state could contribute to the increased Doppler velo cities (hemoglobin 5.3 g/dL). ??LEFT VENTRICLE: ??Normal left ventricular chamber size. ??Normal left ventricular wall thickness. ??D- shaped left ventricle. ??Calculated 2-D linear left ventricular ejection fraction 59 %. ??Left ventricular volumes were performed but not reported based on picker operator's judgment. ??No regional wall motion abnormalities. ??Indeterminate le ft ventricular diastolic function. ??Left ventricular strain assessment not performed because of image quality. ??RIGHT VENTRICLE: ??Severely enlarged right ventricular chamber size. ??Modera tely reduced right ventricular systolic function (longitudinal motion best preserved). ?? Estimated right ventricular systolic pressure 62 mmHg (systolic blood pressure 128 mmHg). ??Ri ght ventricular strain assessment was performed but not reported based on picker operator's judgment . ??ATRIA: ??Mildly enlarged left atrial size by visual estimate. ??Severely enlarged right atri al size. ??CARDIAC VALVES: ??Thickened aortic valve. ??No aortic valve regurgitation. ??Mildly thi ckened mitral valve. ??Trivial mitral valve regurgitation. ??Normal pulmonary valve. ??Normal pulmonary valve systolic velocities. ??Trivial pulmonary valve regurgitation. ??Thicken ed tricuspid valve leaflets. ??Tricuspid annulus dilatation. ??Incomplete tricuspid valve coaptation. ??Severe tricuspid valve regurgitation. Tricuspid regurgitation ERO (PISA) 0.41 cm^2. ??Tricuspid regurgitant volume (PISA) 41 ml. OTHER ECHO FINDINGS: ??Enlarged inferior vena cava size with reduced inspiratory collapse (<50%). ??No intracardiac mass or thromb us, but the left atrial appendage cannot be visualized adequately with transthoracic echo to ex clude thrombus in this location. ??Small circumferential pericardial effusion most prominent kt cent to the right heart. No physiologic signs suggestive of Tamponade or constriction. For the complete report, see the [employer] Documents. Narrative 06/11/2021 11:31 AM YOUTH COUNSELOR For the complete report, see the [employer] Documents. Final Impressions 1. Small circumferential pericardial eff usion No physiologic signs suggestive of Tamponade or constriction. 2. Normal left ventricular chamber size. 3. D-shaped left ventricle. 4. Calculated 2-D linear left ventricula r ejection fraction 59 %. 5. Indeterminate left ventricular diasto lic function. 6. Severely enlarged right ventricular c hamber size. 7. Moderately reduced right ventricular systolic function (longitudinal motion best preserved). 8. Estimated right ventricular systolic pressure 62 mmHg (systolic blood pressure 128 mmHg). 9. Incomplete tricuspid valve coaptation . 10. Severely enlarged right atrial size. 11. Severe tricuspid valve regurgitation . 12. Compared to the report of 06/06/2021 no significant change has occurred. Side by side comparison of images performed. Procedure Note Sherman Overton M.D. - 06/11/2021Formatting o f this note might be different from the original. For the complete report, see the [employer] Documents. Final Impressions 1. Small circumferential pericardial eff usion No physiologic signs suggestive of Tamponade or constriction. 2. Normal left ventricular chamber size. 3. D-shaped left ventricle. 4. Calculated 2-D linear left ventricula r ejection fraction 59 %. 5. Indeterminate left ventricular diasto lic function. 6. Severely enlarged right ventricular c hamber size. 7. Moderately reduced right ventricular systolic function (longitudinal motion best preserved). 8. Estimated right ventricular systolic pressure 62 mmHg (systolic blood pressure 128 mmHg). 9. Incomplete tricuspid valve coaptation . 10. Severely enlarged right atrial size. 11. Severe tricuspid valve regurgitation . 12. Compared to the report of 06/06/2021 no significant change has occurred. Side by side comparison of images performed. Findings Echocardiogram performed per left ventri cular function protocol and follow-up assessment of right heart function status-post diuresi s. Last full echocardiogram performed 06/06/2021. Echo performed at the patient's bedside ([facility]). Patient supine and head of bed elevated to 45 degrees. Anem ia, thyrotoxicosis, or another high output state could contribute to the increased Doppler velo cities (hemoglobin 5.3 g/dL). LEFT VENTRICLE: Normal left ventricular chamber size. Normal le ft ventricular wall thickness. D-shaped left ventricle. Calculated 2-D linear left ve ntricular ejection fraction 59 %. Left ventricular volumes were performed but not reported based on picker operator's judgment. No regional wall motion abnormalities. Indeterminate left ventricular diastolic function. Left ventricular strain assessment not performed because of image quality. RIGHT VENTRICLE: Severely enlarged right ventricular chamber size. Moderate ly reduced right ventricular systolic function (longitudinal motion best preserved). Es timated right ventricular systolic pressure 62 mmHg (systolic blood pressure 128 mmHg). Righ t ventricular strain assessment was performed but not reported based on picker operator's judgment . ATRIA: Mildly enlarged left atrial size by visual estimate. Severely enlarged right atrial size. CARDIAC VALVES: Thickened aortic valve. No aortic valve regurgitation. Mildly thick ened mitral valve. Trivial mitral valve regurgitation. Normal pulmonary valve. N ormal pulmonary valve systolic velocities. Trivial pulmonary valve regurgitation. Thickened tricuspid valve leaflets. Tricuspid annulus dilatation. Incomplete tricuspid valve c oaptation. Severe tricuspid valve regurgitation. Tricuspid regurgitation ERO (PISA) 0.41 cm^2. Tricuspid regurgitant volume (PISA) 41 ml. OTHER ECHO FINDINGS: Enlarged inferior v dawna cava size with reduced inspiratory collapse (<50%). No intracardiac mass or thrombus , but the left atrial appendage cannot be visualized adequately with transthoracic echo to ex clude thrombus in this location. Small circumferential pericardial effusion most prominent kt cent to the right heart. No physiologic signs suggestive of Tamponade or constriction. For the complete report, see the [employer] Documents. Laurita Reyes P.A.-C., M.S. CV ECHO PROCEDURES VRE PCR (06/11/2021 8:09 AM YOUTH COUNSELOR) [facility] Method Time Signature Specimen Swab, 06/11/2021 DTL Source Perirectal 1:52 PM YOUTH COUNSELOR VRE PCR Negative Negative 06/11/2021 DTL 1:52 PM YOUTH COUNSELOR Comment: ----ADDITIONAL INFORMATION---- This test was developed using an analyte specific reagent. Its performance characteristics were determined by [facility] in a manner consistent with CLIA requirements. This test has not bee n cleared or approved by the U.S. Food and Drug Administration. Specimen Anatomical Collection Method Collection Time Receive d Time (Source) Location / / Volume Laterality Varies 06/11/2021 8:09 AM 8:38 (Perirectal) YOUTH COUNSELOR AM YOUTH COUNSELOR Ijeoma Hickman M.D. LAB MICROBIOLOGY - GENERAL O RDERABLES Performing Organization Address City/[facility]/ZIP Code Phon e Number [facility] - [address] [place] [address] [place] [address] Laboratories-[address] RT Pulse Oximetry, Overnight (06/11/2021 7:11 AM YOUTH COUNSELOR) Specimen (Source) Anatomical Location Collection Method / Collectio n Time Received Time / Laterality Volume 06/10/2021 Narrative TANGIER SAHARAISION EAP - 06/11/2021 2:56 PM CS T This result has an attachment that is no t available. See PDF report for results Procedure Note Homar Garzon M.D., Ph.D. - 021 See PDF report for results Laurita Reyes P.A.-C., M.S. SLEEP CENTER ORDERABLES Performing Organization Address City/[facility]/ZIP Code Phon e Number TANGIER NVISION EAP (ABNORMAL) Morphology Evaluation (Special smear) (06/11/2021 5:44 AM YOUTH COUNSELOR) [facility] Method Time Signature Neutrophilic Segs 69 50 - 75 % 06/11/2021 DH[facility] Bands 6:48 AM YOUTH COUNSELOR Lymphocytes 12 (L) 18 - 42 % 06/11/2021 DHPM 6:48 AM YOUTH COUNSELOR Monocytes 4 2 - 11 % 06/11/2021 DHPM 6:48 AM YOUTH COUNSELOR Metamyelocytes 1 (H) <1 % 06/11/2021 [facility] 6:48 AM YOUTH COUNSELOR Myelocytes 14 (H) <0.5 % 06/11/2021 [facility] 6:48 AM YOUTH COUNSELOR Manual Absolute 2.00 1.56 - 06/11/2021 [facility] Neutrophil Count 6.45 6:48 AM YOUTH COUNSELOR x10(9)/L Comment: ----ADDITIONAL INFORMATION---- The manual absolute neutrophil count is derived from a manual differential count and therefore is not exactly comparable to the automated absolute halie trophil count. Specimen Anatomical Collection Method Collection Time Receive d Time (Source) Location / / Volume Laterality Blood 06/11/2021 5:44 AM 5:55 YOUTH COUNSELOR AM YOUTH COUNSELOR Laurita Reyes P.A.-C. M.S. LAB PATHOLOGY/CYTOLOGY ORDERABLES Performing Organization Address [facility] Phon e Number [place] [phone] Laboratories-[address] (ABNORMAL) NT-Pro B-Type Natriuretic Peptide (BNP) (06/11/2021 5:44 AM YOUTH COUNSELOR) athologist Signature NT-Pro BNP 37088 (H) <=155 pg/mL 06/11/2021 DTL 6:33 AM YOUTH COUNSELOR Comment: NT-proBNP values less than 300 pg/mL hav e a 99% negative predictive value for excluding acute congestive heart elmo lure. A cutoff of 1200 pg/mL for patients with an eGFR<60 yields a diagno stic sensitivity and specificity of 89% and 72% for acute congestive heart f ailure. ??A diagnostic NT-proBNP cutoff of 900 pg/mL has been suggested i n adults 50-75 years of age in the absence of renal failure. Specimen Anatomical Collection Method Collection Time Receive d Time (Source) Location / / Volume Laterality Blood (Blood, 06/11/2021 5:44 AM 06/11/20 6:06 Venous) YOUTH COUNSELOR AM YOUTH COUNSELOR Laurita Reyes P.A.-C., M.S. LAB BLOOD ADD-ON Performing Organization Address [facility] Phon e Number [facility] Stir - [address] [place], [place] [address] [place] [id number] [facility] [address] [facility] Magnesium (06/11/2021 5:44 AM YOUTH COUNSELOR) P athologist Signature Magnesium, S 2.3 1.7 - 2.3 06/11/2021 DTL mg/dL 6:33 AM YOUTH COUNSELOR Specimen Anatomical Collection Method Collection Time Receive d Time (Source) Location / / Volume Laterality Blood (Blood, 06/11/2021 5:44 AM 06/11/20 6:06 Venous) YOUTH COUNSELOR AM YOUTH COUNSELOR Laurita Reyes P.A.-C., M.S. LAB BLOOD ADD-ON Performing Organization Address City/[facility] Phon e Number [facility] - [address] Uric Acid (06/11/2021 5:44 AM YOUTH COUNSELOR) athologist Signature Uric Acid, S 6.1 2.7 - 6.1 06/11/2021 DTL mg/dL 6:33 AM YOUTH COUNSELOR Specimen Anatomical Collection Method Collection Time Receive d Time (Source) Location / / Volume Laterality Blood (Blood, 06/11/2021 5:44 AM 06/11/20 6:06 Venous) YOUTH COUNSELOR AM YOUTH COUNSELOR Laurita Reyes P.A.-C., M.S. LAB BLOOD ADD-ON Performing Organization Address City/State/[facility] Code Phon e Number [facility] - [address] (ABNORMAL) Phosphorus Inorganic (06/11/2021 5:44 AM YOUTH COUNSELOR) athologist Signature Phosphorus 4.9 (H) 2.5 - 4.5 06/11/2021 DTL (Inorganic), S mg/dL 6:33 AM YOUTH COUNSELOR Specimen Anatomical Collection Method Collection Time Receive d Time (Source) Location / / Volume Laterality Blood (Blood, 06/11/2021 5:44 AM 06/11/20 6:06 Venous) YOUTH COUNSELOR AM YOUTH COUNSELOR Laurita Reyes P.A.-C. MZahraaS. LAB BLOOD ADD-ON Performing Organization Address City/State/ZIP Code Phon e Number [facility] - [address] [place], [place] [address] [facility] [place] [address] Laboratories-[facility] [address] (ABNORMAL) Comprehensive Metabolic Panel (06/11/2021 5:44 AM YOUTH COUNSELOR) Analysis Performed At Patho logist Time Signature Potassium, S 4.8 3.6 - 5.2 06/11/2021 DTL mmol/L 6:30 AM YOUTH COUNSELOR Sodium, S 139 135 - 145 06/11/2021 DTL mmol/L 6:30 AM YOUTH COUNSELOR Chloride, S 97 (L) 98 - 107 06/11/2021 DTL mmol/L 6:30 AM YOUTH COUNSELOR Bicarbonate, S 35 (H) 22 - 29 06/11/2021 DTL mmol/L 6:30 AM YOUTH COUNSELOR Anion Gap 7 7 - 15 06/11/2021 DTL 6:30 AM YOUTH COUNSELOR BUN (Blood Urea 32 (H) 6 - 21 06/11/2021 DTL Nitrogen), S mg/dL 6:30 AM YOUTH COUNSELOR Creatinine 1.14 (H) 0.59 - 06/11/2021 DTL 1.04 mg/dL 6:30 AM YOUTH COUNSELOR eGFR-Non 55 (L) >=60 06/11/2021 DTL Black/ mL/min/BSA 6:30 AM YOUTH COUNSELOR [place] Comment: ----ADDITIONAL INFORMATION---- Estimated GFR calculated using the 2009 CKD_EPI creatinine equation. eGFR-Black/ 63 >=60 mL/min/BSA 2020 6:30 AM YOUTH COUNSELOR DTL Comment: ----ADDITIONAL INFORMATION---- Estimated GFR calculated using the 2009 CKD_EPI creatinine equation. Calcium, Total, S 9.2 8.6 - 10.0 mg/dL 06/11/2021 6:30 AM YOUTH COUNSELOR DTL Glucose, S 113 70 - 140 mg/dL 06/11/2021 6:30 AM YOUTH COUNSELOR D TL Protein, Total, S 5.6 (L) 6.3 - 7.9 g/dL 06/11/2021 6:30 A M YOUTH COUNSELOR DTL Albumin, S 4.1 3.5 - 5.0 g/dL 06/11/2021 6:30 AM YOUTH COUNSELOR D TL Aspartate Aminotransferase 19 8 - 43 U/L 06/11/2021 6 :30 AM YOUTH COUNSELOR DTL (AST), S Alkaline Phosphatase, S 42 35 - 104 U/L 06/11/2021 6: 30 AM YOUTH COUNSELOR DTL Alanine Aminotransferase 10 7 - 45 U/L 06/11/2021 6:3 0 AM YOUTH COUNSELOR DTL (ALT), S Bilirubin, Total, S 1.0 <=1.2 mg/dL 06/11/2021 6:30 AM YOUTH COUNSELOR DTL Specimen Anatomical Collection Method Collection Time Receive d Time (Source) Location / / Volume Laterality Blood (Blood, 06/11/2021 5:44 AM 06/11/20 6:06 Venous) YOUTH COUNSELOR AM YOUTH COUNSELOR Laurita Reyes P.A.-C., M.S. LAB BLOOD ADD-ON Performing Organization Address City/State/ZIP Code Phon e Number [facility] - [address] [place] [address] [place] [place] [address] Laboratories-[facility] [address] [facility] (ABNORMAL) CBC no call back, reflex T/S HGB <8 (06/11/2021 5:44 AM YOUTH COUNSELOR) [facility] gist Method Time Signature Hemoglobin 7.7 (L) 11.6 - 06/11/2021 DTL 15.0 g/dL 6:02 AM YOUTH COUNSELOR Hematocrit 24.6 (L) 35.5 - 06/11/2021 DTL 44.9 % 6:02 AM YOUTH COUNSELOR Erythrocytes 2.88 (L) 3.92 - 06/11/2021 DTL 5.13 6:02 AM YOUTH COUNSELOR x10(12)/L MCV 85.4 78.2 - 06/11/2021 DTL 97.9 fL 6:02 AM YOUTH COUNSELOR RBC Distrib 22.4 (H) 12.2 - 06/11/2021 DTL Width 16.1 % 6:02 AM YOUTH COUNSELOR Platelet Count 103 (L) 157 - 371 06/11/2021 DTL x10(9)/L 6:02 AM YOUTH COUNSELOR Leukocytes 2.9 (L) 3.4 - 9.6 06/11/2021 DTL x10(9)/L 6:48 AM YOUTH COUNSELOR Neutrophils SeeComment 1.56 - 06/11/2021 DTL 6.45 6:48 AM YOUTH COUNSELOR x10(9)/L Comment: Auto-diff results not valid. Se e manual differential. Specimen Anatomical Collection Method Collection Time Receive d Time (Source) Location / / Volume Laterality Blood (Blood, 06/11/2021 5:44 AM 06/11/20 21 5:55 Venous) YOUTH COUNSELOR AM YOUTH COUNSELOR Laurita Reyes P.A.-C. M.S. LAB BLOOD NON ADD-ON Performing Organization Address City/[facility] Phon e Number [facility] - [address] D[place] [address] (ABNORMAL) Morphology Evaluation (Special smear) (06/10/2021 5:44 AM YOUTH COUNSELOR) Analysis Performed At Patho logist Time Signature Neutrophilic Segs 79 (H) 50 - 75 % 06/10/2021 [facility] Bands 7:47 AM YOUTH COUNSELOR Lymphocytes 9 (L) 18 - 42 % 06/10/2021 DHPM 7:47 AM YOUTH COUNSELOR Monocytes 4 2 - 11 % 06/10/2021 [facility] 7:47 AM YOUTH COUNSELOR Eosinophils 1 1 - 3 % 06/10/2021 DH[facility] 7:47 AM YOUTH COUNSELOR Myelocytes 7 (H) <0.5 % 06/10/2021 [facility] 7:47 AM YOUTH COUNSELOR Nucleated RBC 6 /100 WBC 06/10/2021 DHPM 7:47 AM YOUTH COUNSELOR Manual Absolute 2.69 1.56 - 06/10/2021 [facility] Neutrophil Count 6.45 7:47 AM YOUTH COUNSELOR x10(9)/L Comment: ----ADDITIONAL INFORMATION---- The manual absolute neutrophil count is derived from a manual differential count and therefore is not exactly comparable to the automated absolute halie trophil count. Specimen Anatomical Collection Method Collection Time Receive d Time (Source) Location / / Volume Laterality Blood 06/10/2021 5:44 AM 6:27 YOUTH COUNSELOR AM YOUTH COUNSELOR Laurita Reyes P.A.-C., M.S. LAB PATHOLOGY/CYTOLOGY ORDERABLES Performing Organization Address [facility] Phon e Number [facility] - [address] [place] [address] [facility] [address] [facility] Magnesium (06/10/2021 5:44 AM YOUTH COUNSELOR) athologist Signature Magnesium, S 2.3 1.7 - 2.3 06/10/2021 DTL mg/dL 6:58 AM YOUTH COUNSELOR Specimen Anatomical Collection Method Collection Time Receive d Time (Source) Location / / Volume Laterality Blood (Blood, 06/10/2021 5:44 AM 06/10/20 6:39 Venous) YOUTH COUNSELOR AM YOUTH COUNSELOR Laurita Reyes P.A.-C., M.S. LAB BLOOD ADD-ON Performing Organization Address City/[facility] Phon e Number [facility] - [address] [place], [place] [address] [place] [address] [address] (ABNORMAL) Uric Acid (06/10/2021 5:44 AM YOUTH COUNSELOR) athologist Signature Uric Acid, S 6.6 (H) 2.7 - 6.1 06/10/2021 DTL mg/dL 6:58 AM YOUTH COUNSELOR Specimen Anatomical Collection Method Collection Time Receive d Time (Source) Location / / Volume Laterality Blood (Blood, 06/10/2021 5:44 AM 06/10/20 6:39 Venous) YOUTH COUNSELOR AM YOUTH COUNSELOR Laurita Reyes P.A.-C., M.S. LAB BLOOD ADD-ON Performing Organization Address City/State/[facility] Code Phon e Number [facility] - [address] [place], [place] [address] [place] [address] (ABNORMAL) Phosphorus Inorganic (06/10/2021 5:44 AM YOUTH COUNSELOR) athologist Signature Phosphorus 5.5 (H) 2.5 - 4.5 06/10/2021 DTL (Inorganic), S mg/dL 6:58 AM YOUTH COUNSELOR Specimen Anatomical Collection Method Collection Time Receive d Time (Source) Location / / Volume Laterality Blood (Blood, 06/10/2021 5:44 AM 06/10/20 6:39 Venous) YOUTH COUNSELOR AM YOUTH COUNSELOR Laurita Reyes P.A.-C., M.S. LAB BLOOD ADD-ON Performing Organization Address City/State/ZIP Code Phon e Number [facility] - [address] [place], [place] [address] [facility] [place] [address] Laboratories-[facility] [address] [facility] (ABNORMAL) Basic Metabolic Panel (06/10/2021 5:44 AM YOUTH COUNSELOR) Analysis Performed At Patho logist Time Signature Potassium, S 4.7 3.6 - 5.2 06/10/2021 DTL mmol/L 6:58 AM YOUTH COUNSELOR Sodium, S 141 135 - 145 06/10/2021 DTL mmol/L 6:58 AM YOUTH COUNSELOR Chloride, S 97 (L) 98 - 107 06/10/2021 DTL mmol/L 6:58 AM YOUTH COUNSELOR Bicarbonate, S 35 (H) 22 - 29 06/10/2021 DTL mmol/L 6:58 AM YOUTH COUNSELOR Anion Gap 9 7 - 15 06/10/2021 DTL 6:58 AM YOUTH COUNSELOR BUN (Blood Urea 36 (H) 6 - 21 06/10/2021 DTL Nitrogen), S mg/dL 6:58 AM YOUTH COUNSELOR Creatinine 1.18 (H) 0.59 - 06/10/2021 DTL 1.04 mg/dL 6:58 AM YOUTH COUNSELOR eGFR-Non 53 (L) >=60 06/10/2021 DTL Black/ mL/min/BSA 6:58 AM YOUTH COUNSELOR [place] Comment: ----ADDITIONAL INFORMATION---- Estimated GFR calculated using the 2009 CKD_EPI creatinine equation. eGFR-Black/ 61 >=60 mL/min/BSA 2020 6:58 AM YOUTH COUNSELOR DTL Comment: ----ADDITIONAL INFORMATION---- Estimated GFR calculated using the 2009 CKD_EPI creatinine equation. Calcium, Total, S 9.2 8.6 - 10.0 mg/dL 06/10/2021 6:58 AM YOUTH COUNSELOR DTL Glucose, S 100 70 - 140 mg/dL 06/10/2021 6:58 AM YOUTH COUNSELOR D TL Specimen Anatomical Collection Method Collection Time Receive d Time (Source) Location / / Volume Laterality Blood (Blood, 06/10/2021 5:44 AM 06/10/20 6:39 Venous) YOUTH COUNSELOR AM YOUTH COUNSELOR Laurita Reyes P.A.-C., M.S. LAB BLOOD ADD-ON Performing Organization Address City/[facility] Phon e Number [facility] - [address] [place], [place] [address] [facility] [place], [place] [id number] [place] [address] (ABNORMAL) CBC no call back, reflex T/S HGB <8 (06/10/2021 5:44 AM YOUTH COUNSELOR) [facility] Method Time Signature Hemoglobin 8.4 (L) 11.6 - 06/10/2021 DTL 15.0 g/dL 6:33 AM YOUTH COUNSELOR Hematocrit 27.8 (L) 35.5 - 06/10/2021 DTL 44.9 % 6:33 AM YOUTH COUNSELOR Erythrocytes 3.30 (L) 3.92 - 06/10/2021 DTL 5.13 6:33 AM YOUTH COUNSELOR x10(12)/L MCV 84.2 78.2 - 06/10/2021 DTL 97.9 fL 6:33 AM YOUTH COUNSELOR RBC Distrib Width 22.2 (H) 12.2 - 06/10/2021 DTL 16.1 % 6:33 AM YOUTH COUNSELOR Platelet Count 103 (L) 157 - 371 06/10/2021 DTL x10(9)/L 6:33 AM YOUTH COUNSELOR Leukocytes 3.4 3.4 - 9.6 06/10/2021 DTL x10(9)/L 7:46 AM YOUTH COUNSELOR Comment: Results confirmed by smear. Neutrophils SeeComment 1.56 - 6.45 x10(9)/L 06/10/2021 7:46 AM YOUTH COUNSELOR DTL Comment: Auto-diff results not valid. Se e manual differential. Specimen Anatomical Collection Method Collection Time Receive d Time (Source) Location / / Volume Laterality Blood (Blood, 06/10/2021 5:44 AM 06/10/20 21 6:27 Venous) YOUTH COUNSELOR AM YOUTH COUNSELOR Laurita Reyes P.A.-C. MZahraaS. LAB BLOOD NON ADD-ON Performing Organization Address City/State/[facility] Code Phon e Number [facility] - [address] [place], [place] [address] [facility] [place] [address] [facility]-[address] Transfuse Red Blood Cells : (06/09/2021 5:25 PM YOUTH COUNSELOR) Laurita Reyes P.A.-C., M.S. BLOOD TRANSFUSION ORDER NAGI Transfuse Red Blood Cells : , 1 Units (06/09/2021 5:25 PM YOUTH COUNSELOR) Laurita Reyes P.A.-C., M.S. BLOOD TRANSFUSION ORDER NAGI (ABNORMAL) Uric Acid (06/09/2021 2:05 PM YOUTH COUNSELOR) P athologist Signature Uric Acid, S 6.5 (H) 2.7 - 6.1 06/09/2021 DTL mg/dL 3:15 PM YOUTH COUNSELOR Specimen Anatomical Collection Method Collection Time Receive d Time (Source) Location / / Volume Laterality Blood (Blood, 06/09/2021 2:05 PM 06/09/20 2:49 Venous) YOUTH COUNSELOR PM YOUTH COUNSELOR Laurita Reyes P.A.-C., M.S. LAB BLOOD ADD-ON Performing Organization Address City/[facility] Phon e Number [facility] - [address] (ABNORMAL) Phosphorus Inorganic (06/09/2021 2:05 PM YOUTH COUNSELOR) P athologist Signature Phosphorus 4.9 (H) 2.5 - 4.5 06/09/2021 DTL (Inorganic), S mg/dL 3:15 PM YOUTH COUNSELOR Specimen Anatomical Collection Method Collection Time Receive d Time (Source) Location / / Volume Laterality Blood (Blood, 06/09/2021 2:05 PM 06/09/20 21 2:49 Venous) YOUTH COUNSELOR PM YOUTH COUNSELOR Laurita Reyes P.A.-C., M.S. LAB BLOOD ADD-ON Performing Organization Address City/[facility] Phon e Number [facility] - [address] (ABNORMAL) Basic Metabolic Panel (06/09/2021 2:05 PM YOUTH COUNSELOR) Analysis Performed At Patho logist Time Signature Potassium, S 4.6 3.6 - 5.2 06/09/2021 DTL mmol/L 3:15 PM YOUTH COUNSELOR Sodium, S 141 135 - 145 06/09/2021 DTL mmol/L 3:15 PM YOUTH COUNSELOR Chloride, S 96 (L) 98 - 107 06/09/2021 DTL mmol/L 3:15 PM YOUTH COUNSELOR Bicarbonate, S 37 (H) 22 - 29 06/09/2021 DTL mmol/L 3:15 PM YOUTH COUNSELOR Anion Gap 8 7 - 15 06/09/2021 DTL 3:15 PM YOUTH COUNSELOR BUN (Blood Urea 38 (H) 6 - 21 06/09/2021 DTL Nitrogen), S mg/dL 3:15 PM YOUTH COUNSELOR Creatinine 1.21 (H) 0.59 - 06/09/2021 DTL 1.04 mg/dL 3:15 PM YOUTH COUNSELOR eGFR-Non 51 (L) >=60 06/09/2021 DTL Black/ mL/min/BSA 3:15 PM YOUTH COUNSELOR [place] Comment: ----ADDITIONAL INFORMATION---- Estimated GFR calculated using the 2009 CKD_EPI creatinine equation. eGFR-Black/ 59 (L) >=60 mL/min/BSA 2020 3:15 PM YOUTH COUNSELOR DTL Comment: ----ADDITIONAL INFORMATION---- Estimated GFR calculated using the 2009 CKD_EPI creatinine equation. Calcium, Total, S 9.3 8.6 - 10.0 mg/dL 06/09/2021 3:15 PM YOUTH COUNSELOR DTL Glucose, S 92 70 - 140 mg/dL 06/09/2021 3:15 PM YOUTH COUNSELOR D TL Specimen Anatomical Collection Method Collection Time Receive d Time (Source) Location / / Volume Laterality Blood (Blood, 06/09/2021 2:05 PM 06/09/20 2:49 Venous) YOUTH COUNSELOR PM YOUTH COUNSELOR Laurita Reyes P.A.-C., M.S. LAB BLOOD ADD-ON Performing Organization Address City/State/ZIP Code Phon e Number [facility] - [address] [place], [place] [address] [facility] [place] [address] [facility] [address] (ABNORMAL) CBC no call back, reflex T/S HGB <8 (06/09/2021 2:05 PM YOUTH COUNSELOR) [facility] gist Method Time Signature Hemoglobin 7.5 (L) 11.6 - 06/09/2021 DTL 15.0 g/dL 2:36 PM YOUTH COUNSELOR Hematocrit 24.4 (L) 35.5 - 06/09/2021 DTL 44.9 % 2:36 PM YOUTH COUNSELOR Erythrocytes 2.87 (L) 3.92 - 06/09/2021 DTL 5.13 2:36 PM YOUTH COUNSELOR x10(12)/L MCV 85.0 78.2 - 06/09/2021 DTL 97.9 fL 2:36 PM YOUTH COUNSELOR RBC Distrib Width 22.5 (H) 12.2 - 06/09/2021 DTL 16.1 % 2:36 PM YOUTH COUNSELOR Platelet Count 119 (L) 157 - 371 06/09/2021 DTL x10(9)/L 2:36 PM YOUTH COUNSELOR Leukocytes 3.1 (L) 3.4 - 9.6 06/09/2021 DTL x10(9)/L 3:11 PM YOUTH COUNSELOR Specimen Anatomical Collection Method Collection Time Receive d Time (Source) Location / / Volume Laterality Blood (Blood, 06/09/2021 2:05 PM 06/09/20 21 2:31 Venous) YOUTH COUNSELOR PM YOUTH COUNSELOR Laurita Reyes P.A.-C., M.S. LAB BLOOD NON ADD-ON Performing Organization Address City/State/ZIP Code Phon e Number [facility] - [address] [place] [address] [facility] [place] [address] [facility] [address] [facility] (ABNORMAL) Morphology Evaluation (Special smear) (06/09/2021 12:25 AM YOUTH COUNSELOR) [facility] gist Method Time Signature Neutrophilic Segs 73 50 - 75 % 06/09/2021 DHPM and Bands 2:01 AM YOUTH COUNSELOR Lymphocytes 10 (L) 18 - 42 % 06/09/2021 DHPM 2:01 AM YOUTH COUNSELOR Monocytes 6 2 - 11 % 06/09/2021 DHPM 2:01 AM YOUTH COUNSELOR Eosinophils 1 1 - 3 % 06/09/2021 DHPM 2:01 AM YOUTH COUNSELOR Basophils 1 0 - 2 % 06/09/2021 DHPM 2:01 AM YOUTH COUNSELOR Metamyelocytes 1 (H) <1 % 06/09/2021 DHPM 2:01 AM YOUTH COUNSELOR Myelocytes 7 (H) <0.5 % 06/09/2021 DHPM 2:01 AM YOUTH COUNSELOR Blasts 1 (H) <1 % 06/09/2021 [facility] 2:01 AM YOUTH COUNSELOR Nucleated RBC 4 /100 WBC 06/09/2021 [facility] 2:01 AM YOUTH COUNSELOR Manual Absolute 2.48 1.56 - 06/09/2021 [facility] Neutrophil Count 6.45 2:01 AM YOUTH COUNSELOR x10(9)/L Comment: ----ADDITIONAL INFORMATION---- The manual absolute neutrophil count is derived from a manual differential count and therefore is not exactly comparable to the automated absolute haile trophil count. Specimen Anatomical Collection Method Collection Time Receive d Time (Source) Location / / Volume Laterality Blood 06/09/2021 12:25 06/09/2021 AM YOUTH COUNSELOR 12:38 AM YOUTH COUNSELOR Laurita Reyes P.A.-C. M.S. LAB PATHOLOGY/CYTOLOGY ORDERABLES Performing Organization Address City/[facility] Phon e Number [facility] - [address] Type and Screen (with reflex Antibody ID) (06/09/2021 12:25 AM YOUTH COUNSELOR) Patholo gist Method Time Signature ABORh A Pos Not 06/09/2021 ETRM applicable 2:43 AM YOUTH COUNSELOR Antibody Negative Negative 06/09/2021 ETRM Screen 2:55 AM YOUTH COUNSELOR Type & Screen 06/12/2021 06/09/2021 ETRM Expiration 23:59 2:43 AM YOUTH COUNSELOR Testing Deidra DEFAULT 06/09/2021 ETRM Location 2:22 AM YOUTH COUNSELOR Specimen Anatomical Collection Method Collection Time Receive d Time (Source) Location / / Volume Laterality Blood 06/09/2021 12:25 06/09/2021 2:22 AM YOUTH COUNSELOR AM YOUTH COUNSELOR Laurita Reyes P.A.-C., M.S. LAB BLOOD BANK TEST ORD ERABLES Performing Organization Address City/[facility] Phon e Number [facility] - [address] [place] [address] [facility] ETRM [place] [id number] [place] [address] [address] [facility] (ABNORMAL) Basic Metabolic Panel (06/09/2021 12:25 AM YOUTH COUNSELOR) Analysis Performed At Patho logist Time Signature Potassium, S 4.9 3.6 - 5.2 06/09/2021 DTL mmol/L 1:19 AM YOUTH COUNSELOR Sodium, S 139 135 - 145 06/09/2021 DTL mmol/L 1:19 AM YOUTH COUNSELOR Chloride, S 97 (L) 98 - 107 06/09/2021 DTL mmol/L 1:19 AM YOUTH COUNSELOR Bicarbonate, S 33 (H) 22 - 29 06/09/2021 DTL mmol/L 1:19 AM YOUTH COUNSELOR Anion Gap 9 7 - 15 06/09/2021 DTL 1:19 AM YOUTH COUNSELOR BUN (Blood Urea 39 (H) 6 - 21 06/09/2021 DTL Nitrogen), S mg/dL 1:19 AM YOUTH COUNSELOR Creatinine 1.20 (H) 0.59 - 06/09/2021 DTL 1.04 mg/dL 1:19 AM YOUTH COUNSELOR eGFR-Non 52 (L) >=60 06/09/2021 DTL Black/ mL/min/BSA 1:19 AM YOUTH COUNSELOR [place] Comment: ----ADDITIONAL INFORMATION---- Estimated GFR calculated using the 2009 CKD_EPI creatinine equation. eGFR-Black/ 60 >=60 mL/min/BSA 2020 1:19 AM YOUTH COUNSELOR DTL Comment: ----ADDITIONAL INFORMATION---- Estimated GFR calculated using the 2009 CKD_EPI creatinine equation. Calcium, Total, S 9.0 8.6 - 10.0 mg/dL 06/09/2021 1:19 AM YOUTH COUNSELOR DTL Glucose, S 118 70 - 140 mg/dL 06/09/2021 1:19 AM YOUTH COUNSELOR D TL Specimen Anatomical Collection Method Collection Time Receive d Time (Source) Location / / Volume Laterality Blood (Blood, 06/09/2021 12:25 06/09/2021 Venous) AM YOUTH COUNSELOR 12:54 AM YOUTH COUNSELOR Laurita Reyes P.A.-C., M.S. LAB BLOOD ADD-ON Performing Organization Address City/State/ZIP Code Phon e Number [facility] - [address] [place], [place] [address] [facility] [place] [address] [facility] [address] (ABNORMAL) CBC no call back, reflex T/S HGB <8 (06/09/2021 12:25 AM YOUTH COUNSELOR) Patholo gist Method Time Signature Hemoglobin 7.7 (L) 11.6 - 06/09/2021 DTL 15.0 g/dL 12:44 AM YOUTH COUNSELOR Hematocrit 24.9 (L) 35.5 - 06/09/2021 DTL 44.9 % 12:44 AM YOUTH COUNSELOR Erythrocytes 2.94 (L) 3.92 - 06/09/2021 DTL 5.13 12:44 AM YOUTH COUNSELOR x10(12)/L MCV 84.7 78.2 - 06/09/2021 DTL 97.9 fL 12:44 AM YOUTH COUNSELOR RBC Distrib Width 22.3 (H) 12.2 - 06/09/2021 DTL 16.1 % 12:44 AM YOUTH COUNSELOR Platelet Count 112 (L) 157 - 371 06/09/2021 DTL x10(9)/L 12:44 AM YOUTH COUNSELOR Leukocytes 3.4 3.4 - 9.6 06/09/2021 DTL x10(9)/L 2:00 AM YOUTH COUNSELOR Comment: Results confirmed by smear. Neutrophils SeeComment 1.56 - 6.45 x10(9)/L 06/09/2021 2:00 AM YOUTH COUNSELOR DTL Comment: Auto-diff results not valid. Se e manual differential. Specimen Anatomical Collection Method Collection Time Receive d Time (Source) Location / / Volume Laterality Blood (Blood, 06/09/2021 12:25 06/09/2021 Venous) AM YOUTH COUNSELOR 12:38 AM YOUTH COUNSELOR Laurita Reyes P.A.-C., M.S. LAB BLOOD NON ADD-ON Performing Organization Address City/State/ZIP Code Phon e Number [facility] - [address] [place], [place] [address] [facility] [place] [address] [facility] [address] (ABNORMAL) Uric Acid (06/09/2021 12:25 AM YOUTH COUNSELOR) P athologist Signature Uric Acid, S 6.4 (H) 2.7 - 6.1 06/09/2021 DTL mg/dL 1:19 AM YOUTH COUNSELOR Specimen Anatomical Collection Method Collection Time Receive d Time (Source) Location / / Volume Laterality Blood (Blood, 06/09/2021 12:25 06/09/2021 Venous) AM YOUTH COUNSELOR 12:54 AM YOUTH COUNSELOR Laurita Reyes P.A.-C. M.S. LAB BLOOD ADD-ON Performing Organization Address City/State/ZIP Code Phon e Number [phone] [place] [address] (ABNORMAL) Phosphorus Inorganic (06/09/2021 12:25 AM YOUTH COUNSELOR) athologist Signature Phosphorus 4.9 (H) 2.5 - 4.5 06/09/2021 DTL (Inorganic), S mg/dL 1:19 AM YOUTH COUNSELOR Specimen Anatomical Collection Method Collection Time Receive d Time (Source) Location / / Volume Laterality Blood (Blood, 06/09/2021 12:25 06/09/2021 Venous) AM YOUTH COUNSELOR 12:54 AM YOUTH COUNSELOR Laurita Reyes P.A.-C. M.S. LAB BLOOD ADD-ON Performing Organization Address City/[facility]/ZIP Code Phon e Number [phone] [place] [address] Transfuse Red Blood Cells : (06/08/2021 8:21 PM YOUTH COUNSELOR) Laurita Reyes P.A.-C., M.S. BLOOD TRANSFUSION ORDER NAGI Transfuse Red Blood Cells : , 1 Units (06/08/2021 8:21 PM YOUTH COUNSELOR) Laurita Reyes P.A.-C., M.S. BLOOD TRANSFUSION ORDER NAGI (ABNORMAL) Uric Acid (06/08/2021 2:50 PM YOUTH COUNSELOR) P athologist Signature Uric Acid, S 6.6 (H) 2.7 - 6.1 06/08/2021 DTL mg/dL 4:29 PM YOUTH COUNSELOR Specimen Anatomical Collection Method Collection Time Receive d Time (Source) Location / / Volume Laterality Blood (Blood, 06/08/2021 2:50 PM 06/08/20 3:12 Venous) YOUTH COUNSELOR PM YOUTH COUNSELOR Laurita Reyes P.A.-C., M.S. LAB BLOOD ADD-ON Performing Organization Address City/[facility] Code Phon e Number [facility] [address] (ABNORMAL) Phosphorus Inorganic (06/08/2021 2:50 PM YOUTH COUNSELOR) P athologist Signature Phosphorus 5.2 (H) 2.5 - 4.5 06/08/2021 DTL (Inorganic), S mg/dL 4:29 PM YOUTH COUNSELOR Specimen Anatomical Collection Method Collection Time Receive d Time (Source) Location / / Volume Laterality Blood (Blood, 06/08/2021 2:50 PM 06/08/20 3:12 Venous) YOUTH COUNSELOR PM YOUTH COUNSELOR Laurita Reyes P.A.-C., M.S. LAB BLOOD ADD-ON Performing Organization Address City/[facility] Phon e Number [facility] - [address] [place] [address] Magnesium (06/08/2021 2:50 PM YOUTH COUNSELOR) P athologist Signature Magnesium, S 2.3 1.7 - 2.3 06/08/2021 DTL mg/dL 4:29 PM YOUTH COUNSELOR Specimen Anatomical Collection Method Collection Time Receive d Time (Source) Location / / Volume Laterality Blood (Blood, 06/08/2021 2:50 PM 06/08/20 3:12 Venous) YOUTH COUNSELOR PM YOUTH COUNSELOR Laurita Reyes P.A.-C., M.S. LAB BLOOD ADD-ON Performing Organization Address City/State/[facility] Phon e Number [address] (ABNORMAL) Basic Metabolic Panel (06/08/2021 2:50 PM YOUTH COUNSELOR) Analysis Performed At Patho logist Time Signature Potassium, S 5.0 3.6 - 5.2 06/08/2021 DTL mmol/L 4:29 PM YOUTH COUNSELOR Sodium, S 141 135 - 145 06/08/2021 DTL mmol/L 4:29 PM YOUTH COUNSELOR Chloride, S 98 98 - 107 06/08/2021 DTL mmol/L 4:29 PM YOUTH COUNSELOR Bicarbonate, S 33 (H) 22 - 29 06/08/2021 DTL mmol/L 4:29 PM YOUTH COUNSELOR Anion Gap 10 7 - 15 06/08/2021 DTL 4:29 PM YOUTH COUNSELOR BUN (Blood Urea 36 (H) 6 - 21 06/08/2021 DTL Nitrogen), S mg/dL 4:29 PM YOUTH COUNSELOR Creatinine 1.23 (H) 0.59 - 06/08/2021 DTL 1.04 mg/dL 4:29 PM YOUTH COUNSELOR eGFR-Non 50 (L) >=60 06/08/2021 DTL Black/ mL/min/BSA 4:29 PM YOUTH COUNSELOR [place] Comment: ----ADDITIONAL INFORMATION---- Estimated GFR calculated using the 2009 CKD_EPI creatinine equation. eGFR-Black/ 58 (L) >=60 mL/min/BSA 2020 4:29 PM YOUTH COUNSELOR DTL Comment: ----ADDITIONAL INFORMATION---- Estimated GFR calculated using the 2009 CKD_EPI creatinine equation. Calcium, Total, S 8.8 8.6 - 10.0 mg/dL 06/08/2021 4:29 PM YOUTH COUNSELOR DTL Glucose, S 101 70 - 140 mg/dL 06/08/2021 4:29 PM YOUTH COUNSELOR D TL Specimen Anatomical Collection Method Collection Time Receive d Time (Source) Location / / Volume Laterality Blood (Blood, 06/08/2021 2:50 PM 06/08/20 21 3:12 Venous) YOUTH COUNSELOR PM YOUTH COUNSELOR Laurita Reyes P.A.-C., M.S. LAB BLOOD ADD-ON Performing Organization Address City/State/ZIP Code Phon e Number [facility] - [address] [place], [place] [address] [facility] [place] [address] [facility] [address] (ABNORMAL) CBC no call back, reflex T/S HGB <8 (06/08/2021 2:50 PM YOUTH COUNSELOR) [facility] Method Time Signature Hemoglobin 7.0 (L) 11.6 - 06/08/2021 DTL 15.0 g/dL 3:03 PM YOUTH COUNSELOR Hematocrit 22.5 (L) 35.5 - 06/08/2021 DTL 44.9 % 3:03 PM YOUTH COUNSELOR Erythrocytes 2.67 (L) 3.92 - 06/08/2021 DTL 5.13 3:03 PM YOUTH COUNSELOR x10(12)/L MCV 84.3 78.2 - 06/08/2021 DTL 97.9 fL 3:03 PM YOUTH COUNSELOR RBC Distrib Width 23.1 (H) 12.2 - 06/08/2021 DTL 16.1 % 3:03 PM YOUTH COUNSELOR Platelet Count 103 (L) 157 - 371 06/08/2021 DTL x10(9)/L 3:03 PM YOUTH COUNSELOR Leukocytes 3.1 (L) 3.4 - 9.6 06/08/2021 DTL x10(9)/L 3:19 PM YOUTH COUNSELOR Specimen Anatomical Collection Method Collection Time Receive d Time (Source) Location / / Volume Laterality Blood (Blood, 06/08/2021 2:50 PM 06/08/20 21 2:58 Venous) YOUTH COUNSELOR PM YOUTH COUNSELOR Laurita Reyes P.A.-C., M.S. LAB BLOOD NON ADD-ON Performing Organization Address City/State/ZIP Code Phon e Number [facility] - 200 [place], [place] [address] [facility] [place] [address] [facility] 200 [facility] Transfuse Red Blood Cells : (06/08/2021 1:39 PM YOUTH COUNSELOR) Laurita Reyes P.A.-C., M.S. BLOOD TRANSFUSION ORDER NAGI Transfuse Red Blood Cells : , 1 Units (06/08/2021 1:39 PM YOUTH COUNSELOR) Laurita Reyes P.A.-C., M.S. BLOOD TRANSFUSION ORDER NAGI (ABNORMAL) Morphology Evaluation (Special smear) (06/08/2021 12:09 AM YOUTH COUNSELOR) Patholo gist Method Time Signature Neutrophilic Segs 68 50 - 75 % 06/08/2021 DHPM and Bands 1:58 AM YOUTH COUNSELOR Lymphocytes 16 (L) 18 - 42 % 06/08/2021 DHPM 1:58 AM YOUTH COUNSELOR Monocytes 3 2 - 11 % 06/08/2021 DHPM 1:58 AM YOUTH COUNSELOR Eosinophils 1 1 - 3 % 06/08/2021 DHPM 1:58 AM YOUTH COUNSELOR Metamyelocytes 4 (H) <1 % 06/08/2021 DHPM 1:58 AM YOUTH COUNSELOR Myelocytes 8 (H) <0.5 % 06/08/2021 [facility] 1:58 AM YOUTH COUNSELOR Nucleated RBC 2 /100 WBC 06/08/2021 [facility] 1:58 AM YOUTH COUNSELOR Manual Absolute 1.97 1.56 - 06/08/2021 [facility] Neutrophil Count 6.45 1:58 AM YOUTH COUNSELOR x10(9)/L Comment: ----ADDITIONAL INFORMATION---- The manual absolute neutrophil count is derived from a manual differential count and therefore is not exactly comparable to the automated absolute halie trophil count. Specimen Anatomical Collection Method Collection Time Receive d Time (Source) Location / / Volume Laterality Blood 06/08/2021 12:09 06/08/2021 AM YOUTH COUNSELOR 12:51 AM YOUTH COUNSELOR Laurita Reyes P.A.-C. M.S. LAB PATHOLOGY/CYTOLOGY ORDERABLES Performing Organization Address City/State/[facility] Code Phon e Number [facility] - [address] [place] [address] [place] [address] [facility] [address] [facility] (ABNORMAL) Comprehensive Metabolic Panel (06/08/2021 12:09 AM YOUTH COUNSELOR) Analysis Performed At Patho logist Time Signature Potassium, S 5.1 3.6 - 5.2 06/08/2021 DTL mmol/L 1:30 AM YOUTH COUNSELOR Sodium, S 141 135 - 145 06/08/2021 DTL mmol/L 1:30 AM YOUTH COUNSELOR Chloride, S 101 98 - 107 06/08/2021 DTL mmol/L 1:30 AM YOUTH COUNSELOR Bicarbonate, S 30 (H) 22 - 29 06/08/2021 DTL mmol/L 1:30 AM YOUTH COUNSELOR Anion Gap 10 7 - 15 06/08/2021 DTL 1:30 AM YOUTH COUNSELOR BUN (Blood Urea 36 (H) 6 - 21 06/08/2021 DTL Nitrogen), S mg/dL 1:30 AM YOUTH COUNSELOR Creatinine 1.27 (H) 0.59 - 06/08/2021 DTL 1.04 mg/dL 1:30 AM YOUTH COUNSELOR eGFR-Non 48 (L) >=60 06/08/2021 DTL Black/ mL/min/BSA 1:30 AM YOUTH COUNSELOR [place] Comment: ----ADDITIONAL INFORMATION---- Estimated GFR calculated using the 2009 CKD_EPI creatinine equation. eGFR-Black/ 56 (L) >=60 mL/min/BSA 2020 1:30 AM YOUTH COUNSELOR DTL Comment: ----ADDITIONAL INFORMATION---- Estimated GFR calculated using the 2009 CKD_EPI creatinine equation. Calcium, Total, S 8.5 (L) 8.6 - 10.0 mg/dL 06/08/2021 1:30 AM YOUTH COUNSELOR DTL Glucose, S 95 70 - 140 mg/dL 06/08/2021 1:30 AM YOUTH COUNSELOR D TL Protein, Total, S 5.6 (L) 6.3 - 7.9 g/dL 06/08/2021 1:30 A M YOUTH COUNSELOR DTL Albumin, S 3.9 3.5 - 5.0 g/dL 06/08/2021 1:30 AM YOUTH COUNSELOR D TL Aspartate Aminotransferase 24 8 - 43 U/L 06/08/2021 1 :30 AM YOUTH COUNSELOR DTL (AST), S Alkaline Phosphatase, S 44 35 - 104 U/L 06/08/2021 1: 30 AM YOUTH COUNSELOR DTL Alanine Aminotransferase 8 7 - 45 U/L 06/08/2021 1:3 0 AM YOUTH COUNSELOR DTL (ALT), S Bilirubin, Total, S 1.2 <=1.2 mg/dL 06/08/2021 1:30 AM YOUTH COUNSELOR DTL Specimen Anatomical Collection Method Collection Time Receive d Time (Source) Location / / Volume Laterality Blood (Blood, 06/08/2021 12:09 06/08/2021 1:08 Venous) AM YOUTH COUNSELOR AM YOUTH COUNSELOR Laurita Reyes P.A.-C., M.S. LAB BLOOD ADD-ON Performing Organization Address City/State/ZIP Code Phon e Number [facility] - [address] [place], [place] [address] [facility] [place] [address] [facility] [address] (ABNORMAL) CBC no call back, reflex T/S HGB <8 (06/08/2021 12:09 AM YOUTH COUNSELOR) [facility] gist Method Time Signature Hemoglobin 6.4 (L) 11.6 - 06/08/2021 DTL 15.0 g/dL 12:56 AM YOUTH COUNSELOR Hematocrit 21.1 (L) 35.5 - 06/08/2021 DTL 44.9 % 12:56 AM YOUTH COUNSELOR Erythrocytes 2.49 (L) 3.92 - 06/08/2021 DTL 5.13 12:56 AM YOUTH COUNSELOR x10(12)/L MCV 84.7 78.2 - 06/08/2021 DTL 97.9 fL 12:56 AM YOUTH COUNSELOR RBC Distrib Width 24.1 (H) 12.2 - 06/08/2021 DTL 16.1 % 12:56 AM YOUTH COUNSELOR Platelet Count 95 (L) 157 - 371 06/08/2021 DTL x10(9)/L 1:22 AM YOUTH COUNSELOR Leukocytes 2.9 (L) 3.4 - 9.6 06/08/2021 DTL x10(9)/L 1:56 AM YOUTH COUNSELOR Comment: Results confirmed by smear. Neutrophils SeeComment 1.56 - 6.45 x10(9)/L 06/08/2021 1:56 AM YOUTH COUNSELOR DTL Comment: Auto-diff results not valid. Se e manual differential. Specimen Anatomical Collection Method Collection Time Receive d Time (Source) Location / / Volume Laterality Blood (Blood, 06/08/2021 12:09 06/08/2021 Venous) AM YOUTH COUNSELOR 12:51 AM YOUTH COUNSELOR Laurita Reyes P.A.-C., M.S. LAB BLOOD NON ADD-ON Performing Organization Address City/State/ZIP Code Phon e Number [facility] - [address] [place], [place] [address] [facility] [place] [address] [facility] [address] (ABNORMAL) NT-Pro B-Type Natriuretic Peptide (BNP) (06/08/2021 12:08 AM YOUTH COUNSELOR) athologist Signature NT-Pro BNP 10941 (H) <=155 pg/mL 06/08/2021 DTL 1:41 AM YOUTH COUNSELOR Comment: NT-proBNP values less than 300 pg/mL hav e a 99% negative predictive value for excluding acute congestive heart elmo lure. A cutoff of 1200 pg/mL for patients with an eGFR<60 yields a diagno stic sensitivity and specificity of 89% and 72% for acute congestive heart f ailure. ??A diagnostic NT-proBNP cutoff of 900 pg/mL has been suggested i n adults 50-75 years of age in the absence of renal failure. Specimen Anatomical Collection Method Collection Time Receive d Time (Source) Location / / Volume Laterality Blood (Blood, 06/08/2021 12:08 06/08/2021 1:08 Venous) AM YOUTH COUNSELOR AM YOUTH COUNSELOR Laurita Reyes P.A.-C., M.S. LAB BLOOD ADD-ON Performing Organization Address City/[facility]/ZIP [facility] Phon e Number [facility] - [address] [place], [place] [address] [place] [address] [address] [facility] (ABNORMAL) Phosphorus Inorganic (06/08/2021 12:08 AM YOUTH COUNSELOR) P athologist Signature Phosphorus 5.5 (H) 2.5 - 4.5 06/08/2021 DTL (Inorganic), S mg/dL 1:41 AM YOUTH COUNSELOR Specimen Anatomical Collection Method Collection Time Receive d Time (Source) Location / / Volume Laterality Blood (Blood, 06/08/2021 12:08 06/08/2021 1:08 Venous) AM YOUTH COUNSELOR AM YOUTH COUNSELOR Laurita Reyes P.A.-C., M.S. LAB BLOOD ADD-ON Performing Organization Address City/[facility] Phon e Number [facility] - [address] [place], [place] [address] [place] [id number] [place] [address] (ABNORMAL) Uric Acid (06/08/2021 12:08 AM YOUTH COUNSELOR) P athologist Signature Uric Acid, S 6.2 (H) 2.7 - 6.1 06/08/2021 DTL mg/dL 1:41 AM YOUTH COUNSELOR Specimen Anatomical Collection Method Collection Time Receive d Time (Source) Location / / Volume Laterality Blood (Blood, 06/08/2021 12:08 06/08/2021 1:08 Venous) AM YOUTH COUNSELOR AM YOUTH COUNSELOR Laurita Reyes P.A.-C., M.S. LAB BLOOD ADD-ON Performing Organization Address City/State/ZIP Code Phon e Number [facility] - [address] [place], [place] [address] [place], [place] [id number] [place] [address] [address] [facility] Haptoglobin (06/08/2021 12:01 AM YOUTH COUNSELOR) athologist Signature Haptoglobin, S 58 30 - 200 06/08/2021 [facility] mg/dL 3:55 PM YOUTH COUNSELOR Specimen Anatomical Collection Method Collection Time Receive d Time (Source) Location / / Volume Laterality Blood 06/08/2021 12:01 06/08/2021 2:00 AM YOUTH COUNSELOR PM YOUTH COUNSELOR Vanda Bates APRN.N.PZahraa, Haydee.NZahraaPZahraa LAB BLOOD A DD-ON Performing Organization Address City/[facility]/ZIP Code Phon e Number [facility] [address] [place], [place] [address] [facility] [place] [address] Laboratory Medicine and Pathology [address] [place] (ABNORMAL) Uric Acid (06/07/2021 4:18 PM YOUTH COUNSELOR) athologist Signature Uric Acid, S 6.2 (H) 2.7 - 6.1 06/07/2021 DTL mg/dL 5:36 PM YOUTH COUNSELOR Specimen Anatomical Collection Method Collection Time Receive d Time (Source) Location / / Volume Laterality Blood (Blood, 06/07/2021 4:18 PM 06/07/20 5:08 Venous) YOUTH COUNSELOR PM YOUTH COUNSELOR Laurita Reyes P.A.-C., M.S. LAB BLOOD ADD-ON Performing Organization Address City/[facility]/ZIP Code Phon e Number [facility] - [address] [place], [place] [address] [facility] [place] [address] Laboratories-[facility] [address] (ABNORMAL) Phosphorus Inorganic (06/07/2021 4:18 PM YOUTH COUNSELOR) athologist Signature Phosphorus 5.4 (H) 2.5 - 4.5 06/07/2021 DTL (Inorganic), S mg/dL 5:36 PM YOUTH COUNSELOR Specimen Anatomical Collection Method Collection Time Receive d Time (Source) Location / / Volume Laterality Blood (Blood, 06/07/2021 4:18 PM 06/07/20 5:08 Venous) YOUTH COUNSELOR PM YOUTH COUNSELOR Laurita Reyes P.A.-C., M.S. LAB BLOOD ADD-ON Performing Organization Address City/State/ZIP Code Phon e Number [facility] - [address] [place], [place] [address] [facility] [place] [address] Laboratories-[facility] [address] [facility] (ABNORMAL) Basic Metabolic Panel (06/07/2021 4:18 PM YOUTH COUNSELOR) Analysis Performed At Patho logist Time Signature Potassium, S 4.8 3.6 - 5.2 06/07/2021 DTL mmol/L 5:36 PM YOUTH COUNSELOR Sodium, S 141 135 - 145 06/07/2021 DTL mmol/L 5:36 PM YOUTH COUNSELOR Chloride, S 101 98 - 107 06/07/2021 DTL mmol/L 5:36 PM YOUTH COUNSELOR Bicarbonate, S 31 (H) 22 - 29 06/07/2021 DTL mmol/L 5:36 PM YOUTH COUNSELOR Anion Gap 9 7 - 15 06/07/2021 DTL 5:36 PM YOUTH COUNSELOR BUN (Blood Urea 34 (H) 6 - 21 06/07/2021 DTL Nitrogen), S mg/dL 5:36 PM YOUTH COUNSELOR Creatinine 1.23 (H) 0.59 - 06/07/2021 DTL 1.04 mg/dL 5:36 PM YOUTH COUNSELOR eGFR-Non 50 (L) >=60 06/07/2021 DTL Black/ mL/min/BSA 5:36 PM YOUTH COUNSELOR [place] Comment: ----ADDITIONAL INFORMATION---- Estimated GFR calculated using the 2009 CKD_EPI creatinine equation. eGFR-Black/ 58 (L) >=60 mL/min/BSA 2020 5:36 PM YOUTH COUNSELOR DTL Comment: ----ADDITIONAL INFORMATION---- Estimated GFR calculated using the 2009 CKD_EPI creatinine equation. Calcium, Total, S 8.3 (L) 8.6 - 10.0 mg/dL 06/07/2021 5:36 PM YOUTH COUNSELOR DTL Glucose, S 131 70 - 140 mg/dL 06/07/2021 5:36 PM YOUTH COUNSELOR D TL Specimen Anatomical Collection Method Collection Time Receive d Time (Source) Location / / Volume Laterality Blood (Blood, 06/07/2021 4:18 PM 06/07/20 5:08 Venous) YOUTH COUNSELOR PM YOUTH COUNSELOR Laurita Reyes P.A.-C., M.S. LAB BLOOD ADD-ON Performing Organization Address City/State/ZIP Code Phon e Number [facility] - [address] [place], [place] [address] [place] [address] (ABNORMAL) Hemoglobin (06/07/2021 11:17 AM YOUTH COUNSELOR) P athologist Signature Hemoglobin 7.3 (L) 11.6 - 15.0 06/07/2021 DTL g/dL 11:36 AM YOUTH COUNSELOR Specimen Anatomical Collection Method Collection Time Receive d Time (Source) Location / / Volume Laterality Blood (Blood, 06/07/2021 11:17 06/07/2021 Venous) AM YOUTH COUNSELOR 11:31 AM YOUTH COUNSELOR Margy Frazier P.A.-C. LAB BLOOD ADD-ON Performing Organization Address City/State/[facility] Code Phon e Number [facility] [address] [place], [place] [address] [place] [address] Chest Angiogram with IV Contrast (06/07/2021 10:15 AM YOUTH COUNSELOR) Anatomical Region Laterality Modality Chest, Cardiovascular RST LOS, Thoracic N/A Computed Tomography, Computed ARZ LOS, Thoracic FLA LOS, Vascular Luis Daniel graphy Interventional ARZ LOS Specimen (Source) Anatomical Collection Method Collection Time Re ceived Time Location / / Volume Laterality 06/07/2021 10:38 AM YOUTH COUNSELOR Impressions 06/07/2021 11:28 AM YOUTH COUNSELOR 1. No acute pulmonary emboli. 2. Scattered groundglass opacities and m osaic attenuation throughout the lungs. Findings can be compatible with an infec tious/inflammatory process versus pulmonary edema. 3. Small left pleural effusion and peric ardial effusion. 4. Partially visualized abdominal ascite s. Narrative 06/07/2021 11:28 AM YOUTH COUNSELOR EXAM: ??CT CHEST ANGIOGRAM WITH IV CONTRAST Including 3D image post-processing. COMPARISON: ??CT abdomen pelvis 02/17/20 FINDINGS: VASCULAR FINDINGS: Suboptimal contrast t iming. No evidence of acute pulmonary emboli. R egions of hypoattenuation within the right upper lobe pulmonary artery branch es are favored to represent poor mixing artifact (series 5, image 90). Main pulm onary artery measures up to 3.8 cm, suggestive of pulmonary arterial hyperte nsion. No evidence of right heart strain. ADDITIONAL FINDINGS: Small pericardial effusion. Right atrial enlargement. Splenomegaly. Similar appearance of the left adrenal adenoma. Abdominal ascites. Body wall anasarca. Scattered diffuse groundglass opacities and mosaic attenuation of the bilateral lungs. Fissural scarring along the super ior left lower lobe/lingula. Small layering left pleural effusion. Procedure Note Ifeanyi Bullock M.D. - 06/07/2021For matting of this note might be different from the original. EXAM: CT CHEST ANGIOGRAM WITH IV CONTRAS T Including 3D image post-processing. COMPARISON: CT abdomen pelvis 02/16/2021 FINDINGS: VASCULAR FINDINGS: Suboptimal contrast t iming. No evidence of acute pulmonary emboli. R egions of hypoattenuation within the right upper lobe pulmonary artery branch es are favored to represent poor mixing artifact (series 5, image 90). Main pulm onary artery measures up to 3.8 cm, suggestive of pulmonary arterial hyperte nsion. No evidence of right heart strain. ADDITIONAL FINDINGS: Small pericardial effusion. Right atrial enlargement. Splenomegaly. Similar appearance of the left adrenal adenoma. Abdominal ascites. Body wall anasarca. Scattered diffuse groundglass opacities and mosaic attenuation of the bilateral lungs. Fissural scarring along the super ior left lower lobe/lingula. Small layering left pleural effusion. IMPRESSION: 1. No acute pulmonary emboli. 2. Scattered groundglass opacities and m osaic attenuation throughout the lungs. Findings can be compatible with an infec tious/inflammatory process versus pulmonary edema. 3. Small left pleural effusion and peric ardial effusion. 4. Partially visualized abdominal ascite s. Laurita Reyes P.A.-C., M.S. IMG CT PROCEDURES Transfuse Red Blood Cells : (06/07/2021 9:26 AM YOUTH COUNSELOR) Marjorie Kidd APRN, C.N.P., D.N.P. BLOOD TRANS FUSION ORDERABLES Transfuse Red Blood Cells : , 1 Units (06/07/2021 9:26 AM YOUTH COUNSELOR) Marjorie Kidd APRN C.N.P., D.N.P. BLOOD TRANS FUSION ORDERABLES (ABNORMAL) Morphology Evaluation (Special Smear) (06/07/2021 6:41 AM YOUTH COUNSELOR) Component Value Ref Test Analysis Performed At [facility] Nascentric Range Method Time Signature Neutrophilic Segs 79 (H) 50 - 75 06/07/2021 DTL and Bands % 8:19 AM YOUTH COUNSELOR Lymphocytes 12 (L) 18 - 42 06/07/2021 DHPM % 8:19 AM YOUTH COUNSELOR Monocytes 1 (L) 2 - 11 % 06/07/2021 DHPM 8:19 AM YOUTH COUNSELOR Metamyelocytes 2 (H) <1 % 06/07/2021 DHPM 8:19 AM YOUTH COUNSELOR Myelocytes 5 (H) <0.5 % 06/07/2021 DHPM 8:19 AM YOUTH COUNSELOR Blasts 1 (H) <1 % 06/07/2021 DHPM 8:19 AM YOUTH COUNSELOR Nucleated RBC 5 /100 WBC 06/07/2021 DHPM 8:19 AM YOUTH COUNSELOR Interpretation Marked 06/07/2021 DHPM dacrocytes 8:19 AM YOUTH COUNSELOR are present. Reviewed by: Tech 06/07/2021 DHPM 8:19 AM YOUTH COUNSELOR Specimen Anatomical Collection Method Collection Time Receive d Time (Source) Location / / Volume Laterality Blood 06/07/2021 6:41 AM 6:41 YOUTH COUNSELOR AM YOUTH COUNSELOR Marjorie Kidd APRN, C.N.P., D.N.P. LAB BLOOD A DD-ON Performing Organization Address City/State/ZIP Code Phon e Number [facility] - [address] [place], [place] [address] [facility] [place] [address] [facility] [address] [facility] [place] [address] Laboratories-[facility] [address] (ABNORMAL) Morphology Evaluation (Special smear) (06/07/2021 5:47 AM YOUTH COUNSELOR) [facility] Nascentric Method Time Signature Neutrophilic Segs 75 50 - 75 % 06/07/2021 DHPM and Bands 6:47 AM YOUTH COUNSELOR Lymphocytes 15 (L) 18 - 42 % 06/07/2021 DHPM 6:47 AM YOUTH COUNSELOR Monocytes 2 2 - 11 % 06/07/2021 DHPM 6:47 AM YOUTH COUNSELOR Eosinophils 1 1 - 3 % 06/07/2021 DHPM 6:47 AM YOUTH COUNSELOR Metamyelocytes 1 (H) <1 % 06/07/2021 DHPM 6:47 AM YOUTH COUNSELOR Myelocytes 5 (H) <0.5 % 06/07/2021 [facility] 6:47 AM YOUTH COUNSELOR Blasts 1 (H) <1 % 06/07/2021 [facility] 6:47 AM YOUTH COUNSELOR Nucleated RBC 10 /100 WBC 06/07/2021 [facility] 6:47 AM YOUTH COUNSELOR Manual Absolute 2.93 1.56 - 06/07/2021 [facility] Neutrophil Count 6.45 6:47 AM YOUTH COUNSELOR x10(9)/L Comment: ----ADDITIONAL INFORMATION---- The manual absolute neutrophil count is derived from a manual differential count and therefore is not exactly comparable to the automated absolute halie trophil count. Reviewed by: Tech 06/07/2021 6:47 AM YOUTH COUNSELOR [facility] Specimen Anatomical Collection Method Collection Time Receive d Time (Source) Location / / Volume Laterality Blood 06/07/2021 5:47 AM 5:58 YOUTH COUNSELOR AM YOUTH COUNSELOR Margy Frazier P.A.-C. LAB PATHOLOGY/CYTOLOGY ORDERABLES Performing Organization Address City/[facility] Phon e Number [facility] - [address] Uric Acid (06/07/2021 5:47 AM YOUTH COUNSELOR) athologist Signature Uric Acid, S 6.0 2.7 - 6.1 06/07/2021 DTL mg/dL 6:24 AM YOUTH COUNSELOR Specimen Anatomical Collection Method Collection Time Receive d Time (Source) Location / / Volume Laterality Blood (Blood, 06/07/2021 5:47 AM 06/07/20 6:08 Venous) YOUTH COUNSELOR AM YOUTH COUNSELOR Margy Frazier P.A.-C. LAB BLOOD ADD-ON Performing Organization Address City/[facility] Phon e Number [facility] - [address] [place] [address] (ABNORMAL) Phosphorus Inorganic (06/07/2021 5:47 AM YOUTH COUNSELOR) athologist Signature Phosphorus 5.0 (H) 2.5 - 4.5 06/07/2021 DTL (Inorganic), S mg/dL 6:24 AM YOUTH COUNSELOR Specimen Anatomical Collection Method Collection Time Receive d Time (Source) Location / / Volume Laterality Blood (Blood, 06/07/2021 5:47 AM 06/07/20 6:08 Venous) YOUTH COUNSELOR AM YOUTH COUNSELOR Margy Frazier P.A.-C. LAB BLOOD ADD-ON Performing Organization Address City/[facility] Code Phon e Number [facility] - [address] [place] [address] [facility] [place] [address] Laboratories-[address] (ABNORMAL) Prothrombin Time (PT) (06/07/2021 5:47 AM YOUTH COUNSELOR) Patholo gist Method Time Signature Prothrombin 14.9 (H) 9.4 - 12.5 06/07/2021 DTL Time, P sec 6:22 AM YOUTH COUNSELOR INR 1.3 0.9 - 1.1 06/07/2021 DTL 6:22 AM YOUTH COUNSELOR Comment: ----ADDITIONAL INFORMATION---- Standard intensity warfarin therapeutic range: 2.0 to 3.0 ?? High intensity warfarin therapeutic rang e: 2.5 to 3.5 Specimen Anatomical Collection Method Collection Time Receive d Time (Source) Location / / Volume Laterality Blood (Blood, 06/07/2021 5:47 AM 06/07/20 5:58 Venous) YOUTH COUNSELOR AM YOUTH COUNSELOR Margy Frazier P.A.-C. LAB BLOOD ADD-ON Performing Organization Address City/State/[facility] Code Phon e Number [facility] - [address] [place] [address] [facility] [place] [address] Laboratories-[address] (ABNORMAL) Magnesium (06/07/2021 5:47 AM YOUTH COUNSELOR) P athologist Signature Magnesium, S 2.4 (H) 1.7 - 2.3 06/07/2021 DTL mg/dL 6:24 AM YOUTH COUNSELOR Specimen Anatomical Collection Method Collection Time Receive d Time (Source) Location / / Volume Laterality Blood (Blood, 06/07/2021 5:47 AM 06/07/20 6:08 Venous) YOUTH COUNSELOR AM YOUTH COUNSELOR Margy Frazier P.A.-C. LAB BLOOD ADD-ON Performing Organization Address City/State/ZIP Code Phon e Number [facility] - [address] [place], [place] [address] [facility] [place] [address] Laboratories-[facility] [address] [facility] (ABNORMAL) Comprehensive Metabolic Panel (06/07/2021 5:47 AM YOUTH COUNSELOR) Analysis Performed At Patho logist Time Signature Potassium, S 4.7 3.6 - 5.2 06/07/2021 DTL mmol/L 6:24 AM YOUTH COUNSELOR Sodium, S 141 135 - 145 06/07/2021 DTL mmol/L 6:24 AM YOUTH COUNSELOR Chloride, S 102 98 - 107 06/07/2021 DTL mmol/L 6:24 AM YOUTH COUNSELOR Bicarbonate, S 30 (H) 22 - 29 06/07/2021 DTL mmol/L 6:24 AM YOUTH COUNSELOR Anion Gap 9 7 - 15 06/07/2021 DTL 6:24 AM YOUTH COUNSELOR BUN (Blood Urea 33 (H) 6 - 21 06/07/2021 DTL Nitrogen), S mg/dL 6:24 AM YOUTH COUNSELOR Creatinine 1.22 (H) 0.59 - 06/07/2021 DTL 1.04 mg/dL 6:24 AM YOUTH COUNSELOR eGFR-Non 51 (L) >=60 06/07/2021 DTL Black/ mL/min/BSA 6:24 AM YOUTH COUNSELOR [place] Comment: ----ADDITIONAL INFORMATION---- Estimated GFR calculated using the 2009 CKD_EPI creatinine equation. eGFR-Black/ 58 (L) >=60 mL/min/BSA 2020 6:24 AM YOUTH COUNSELOR DTL Comment: ----ADDITIONAL INFORMATION---- Estimated GFR calculated using the 2009 CKD_EPI creatinine equation. Calcium, Total, S 8.5 (L) 8.6 - 10.0 mg/dL 06/07/2021 6:24 AM YOUTH COUNSELOR DTL Glucose, S 123 70 - 140 mg/dL 06/07/2021 6:24 AM YOUTH COUNSELOR D TL Protein, Total, S 5.9 (L) 6.3 - 7.9 g/dL 06/07/2021 6:24 A M YOUTH COUNSELOR DTL Albumin, S 4.3 3.5 - 5.0 g/dL 06/07/2021 6:24 AM YOUTH COUNSELOR D TL Aspartate Aminotransferase 23 8 - 43 U/L 06/07/2021 6 :24 AM YOUTH COUNSELOR DTL (AST), S Alkaline Phosphatase, S 49 35 - 104 U/L 06/07/2021 6: 24 AM YOUTH COUNSELOR DTL Alanine Aminotransferase 9 7 - 45 U/L 06/07/2021 6:2 4 AM YOUTH COUNSELOR DTL (ALT), S Bilirubin, Total, S 1.5 (H) <=1.2 mg/dL 06/07/2021 6:24 AM YOUTH COUNSELOR DTL Specimen Anatomical Collection Method Collection Time Receive d Time (Source) Location / / Volume Laterality Blood (Blood, 06/07/2021 5:47 AM 06/07/20 6:08 Venous) YOUTH COUNSELOR AM YOUTH COUNSELOR Margy Frazier P.A.-C. LAB BLOOD ADD-ON Performing Organization Address City/State/ZIP Code Phon e Number [facility] - [address] [place] [address] [facility] [place] [address] Laboratories-[facility] [address] (ABNORMAL) CBC no call back, reflex T/S HGB <8 (06/07/2021 5:47 AM YOUTH COUNSELOR) [facility] gist Method Time Signature Hemoglobin 6.4 (L) 11.6 - 06/07/2021 DTL 15.0 g/dL 6:05 AM YOUTH COUNSELOR Hematocrit 21.2 (L) 35.5 - 06/07/2021 DTL 44.9 % 6:05 AM YOUTH COUNSELOR Erythrocytes 2.51 (L) 3.92 - 06/07/2021 DTL 5.13 6:05 AM YOUTH COUNSELOR x10(12)/L MCV 84.5 78.2 - 06/07/2021 DTL 97.9 fL 6:05 AM YOUTH COUNSELOR RBC Distrib Width 24.4 (H) 12.2 - 06/07/2021 DTL 16.1 % 6:05 AM YOUTH COUNSELOR Platelet Count 103 (L) 157 - 371 06/07/2021 DTL x10(9)/L 6:05 AM YOUTH COUNSELOR Leukocytes 3.9 3.4 - 9.6 06/07/2021 DTL x10(9)/L 6:46 AM YOUTH COUNSELOR Comment: Corrected for normoblasts. Neutrophils SeeComment 1.56 - 6.45 x10(9)/L 06/07/2021 6:46 AM YOUTH COUNSELOR DTL Comment: Auto-diff results not valid. Se e manual differential. Specimen Anatomical Collection Method Collection Time Receive d Time (Source) Location / / Volume Laterality Blood (Blood, 06/07/2021 5:47 AM 06/07/20 5:58 Venous) YOUTH COUNSELOR AM YOUTH COUNSELOR Margy Frazier P.A.-C. LAB BLOOD NON ADD-ON Performing Organization Address City/State/ZIP Code Phon e Number [facility] - [address] [place] [address] [facility] [place] [address] Laboratories-[facility] [address] [facility] HLA Class II Typing by High Resolution, Recipient (06/07/2021 5:47 AM YOUTH COUNSELOR) Patholo gist Method Time Signature DRB1 - 1 DRB1*09:01 Not 06/15/2021 DBB8 Allele Applicable 4:09 PM YOUTH COUNSELOR DRB1 - 2 DRB1*12:01 Not 06/15/2021 DBB8 Allele Applicable 4:09 PM YOUTH COUNSELOR [id number] - 1 DRB3*02:02 Not 06/15/2021 DBB8 Allele Applicable 4:09 PM YOUTH COUNSELOR [id number] - 2 DRB4*01:03 Not 06/15/2021 DBB8 Allele Applicable 4:09 PM YOUTH COUNSELOR DQB1 - 1 DQB1*03:01 Not 06/15/2021 DBB8 Allele Applicable 4:09 PM YOUTH COUNSELOR DQB1 - 2 DQB1*03:03 Not 06/15/2021 DBB8 Allele Applicable 4:09 PM YOUTH COUNSELOR DQA1 - 1 DQA1*03:02 Not 06/15/2021 DBB8 Allele Applicable 4:09 PM YOUTH COUNSELOR DQA1 - 2 DQA1*05:05 Not 06/15/2021 DBB8 Allele Applicable 4:09 PM YOUTH COUNSELOR DPB1 - 1 DPB1*04:01 Not 06/15/2021 DBB8 Allele Applicable 4:09 PM YOUTH COUNSELOR DPB1 - 2 DPB1*04:01 Not 06/15/2021 DBB8 Allele Applicable 4:09 PM YOUTH COUNSELOR DPA1 - 1 DPA1*01:03 Not 06/15/2021 DBB8 Allele Applicable 4:09 PM YOUTH COUNSELOR DPA1 - 2 DPA1*01:03 Not 06/15/2021 DBB8 Allele Applicable 4:09 PM YOUTH COUNSELOR DRB1 HLA-DRB1*12:1 06/15/2021 DBB8 Unresolved 0 4:09 PM YOUTH COUNSELOR Alleles [id number] HLA-DRB3*02:1 06/15/2021 DBB8 Unresolved 44 4:09 PM YOUTH COUNSELOR Alleles DQB1 HLA-DQB1*03:3 06/15/2021 DBB8 Unresolved 58N 4:09 PM YOUTH COUNSELOR Alleles Test Method PCR - Next 06/15/2021 DBB8 Generation 4:09 PM YOUTH COUNSELOR Sequencing Comment: ----ADDITIONAL INFORMATION---- Common, intermediate and well-documented (CIWD) HLA alleles are resolved or listed if not resolved. Listing of ambiguous rare alleles not resolved can be found i n the locuss unresolved field. (Albert ROSENBERG, Cesar J, Nolan K, et al. 2020; 1-16 https://doi.org/10.1111/T AN.16822). This test was developed and its performa nce characteristics determined by [facility] in a manner co nsistent with CLIA requirements. This test has not been demetris ared or approved by the U.S. Food and Drug Administration. CLIA: [id number] ??CLIA Glycerine Plant Operator: VALENTINA GOLD MD,PhD Specimen Anatomical Collection Method Collection Time Receive d Time (Source) Location / / Volume Laterality Blood (Blood, 06/07/2021 5:47 AM 06/08/20 7:55 Venous) YOUTH COUNSELOR AM YOUTH COUNSELOR Narrative [facility] - 06/15/2021 4:09 PM YOUTH COUNSELOR Specimen Information: Specimen ID: [id number] Specimen Type: Blood Specimen Collection Start Date: ??5:47 AM Specimen Received Date: 06/08/2021 ??7: 55 AM Specimen ID: [id number] Specimen Type: Blood Specimen Collection Start Date: 021 ??5:47 AM Specimen Received Date: 06/08/2021 ??7: 55 AM Margy Frazier P.A.-C. LAB HLA ORDERABLES Performing Organization Address City/State/ZIP Code Phon e Number [facility] - [address] [place] [address] [facility] [place] [address] Laboratories-[facility] [address] [facility] HLA Class I Typing by High Resolution, Recipient (06/07/2021 5:47 AM YOUTH COUNSELOR) [facility] gist Method Time Signature A - 1 Allele A*02:01 Not 06/15/2021 DBB8 Applicable 4:09 PM YOUTH COUNSELOR A - 2 Allele A*24:02 Not 06/15/2021 DBB8 Applicable 4:09 PM YOUTH COUNSELOR B - 1 Allele B*44:02 Not 06/15/2021 DBB8 Applicable 4:09 PM YOUTH COUNSELOR B - 2 Allele B*51:01 Not 06/15/2021 DBB8 Applicable 4:09 PM YOUTH COUNSELOR C - 1 Allele C*05:01 Not 06/15/2021 DBB8 Applicable 4:09 PM YOUTH COUNSELOR C - 2 Allele C*14:02 Not 06/15/2021 DBB8 Applicable 4:09 PM YOUTH COUNSELOR A Unresolved HLA-A*02:01:0 06/15/2021 DBB8 Alleles 1:02L 4:09 PM YOUTH COUNSELOR Test Method PCR - Next 06/15/2021 DBB8 Generation 4:09 PM YOUTH COUNSELOR Sequencing Comment: ----ADDITIONAL INFORMATION---- Common, intermediate and well-documented (CIWD) HLA alleles are resolved or listed if not resolved. Listing of ambiguous rare alleles not resolved can be found i n the locuss unresolved field. (Albert ROSENBERG, Cesar J, Nolan K, et al. 2020; 1-16 https://doi.org/10.1111/T AN.31819). This test was developed and its performa nce characteristics determined by [facility] in a manner co nsistent with CLIA requirements. This test has not been demetris ared or approved by the U.S. Food and Drug Administration. CLIA: [id number] ??CLIA Glycerine Plant Operator: VALENTINA GOLD MD,PhD Specimen Anatomical Collection Method Collection Time Receive d Time (Source) Location / / Volume Laterality Blood (Blood, 06/07/2021 5:47 AM 06/08/20 7:55 Venous) YOUTH COUNSELOR AM YOUTH COUNSELOR Narrative [facility] - 06/15/2021 4:09 PM YOUTH COUNSELOR Specimen Information: Specimen ID: [id number] Specimen Type: Blood Specimen Collection Start Date: ??5:47 AM Specimen Received Date: 06/08/2021 ??7: 55 AM Specimen ID: [id number] Specimen Type: Blood Specimen Collection Start Date: ??5:47 AM Specimen Received Date: 06/08/2021 ??7: 55 AM Specimen ID: [id number] Specimen Type: Blood Specimen Collection Start Date: ??5:47 AM Specimen Received Date: 06/08/2021 ??7: 55 AM Margy Frazier P.A.-C. LAB HLA ORDERABLES Performing Organization Address City/State/ZIP Code Phon e Number [address] [address] [address] [facility] [place] [place] [address] [facility] [address] [facility] HLA Class II SAB Antibody Screen (06/07/2021 5:47 AM YOUTH COUNSELOR) [facility] Method Time Signature Class II SAB Positive Not Applicable 06/08/2021 DBB8 Overall 3:55 PM YOUTH COUNSELOR Result Class II SAB 0 06/08/2021 DBB8 cPRA 3:55 PM YOUTH COUNSELOR Comment: ----ADDITIONAL INFORMATION---- cPRA is calculated for either HLA class I or II (except DPB1) antibodies with a normalized MFI >2000 u sing published UNOS frequencies (http://optn.transplant.hrsa .gov). ??For convenience, all HLA antibodies with a normalized MFI >500 are listed in the specificity patton. SAB DRB1 Specificity see below 06/08/2021 3:55 PM YOUTH COUNSELOR DBB8 Comment: 7(07:01)[1694], 4(04:04)[1193] Format: Serologic Eq.(DRB1 Mol. Allele)[ Normalized MFI] NOTE: Data is displayed in descending or kesha by Mean Fluorescence Intensity (MFI). ??Serologic equivalents can be di splayed multiple times for different molecular alleles. SAB [id number] Specificity NONE 06/08/2021 3:55 P M YOUTH COUNSELOR DBB8 SAB DQB1 Specificity see below 06/08/2021 3:55 PM YOUTH COUNSELOR DBB8 Comment: 8(A*03:01;B*03:02)[853] Format: Serologic Eq.(DQA1;DQB1 Mol. All char)[Normalized MFI] NOTE: Data is displayed in descending or kesha by Mean Fluorescence Intensity (MFI). ??Serologic equivalents can be di splayed multiple times for different molecular alleles. SAB DPB1 Specificity see below 06/08/2021 3:55 PM YOUTH COUNSELOR DBB8 Comment: 14(A*02:01;B*14:01)[1631], 10(A*02:02;B* 10:01)[1107], 3(A*02:01;B*03:01)[553] Format: Serologic Eq.(DPA1;DPB1 Mol. All char)[Normalized MFI] NOTE: Data is displayed in descending or kesha by Mean Fluorescence Intensity (MFI). ??Serologic equivalents can be di splayed multiple times for different molecular alleles. ----ADDITIONAL INFORMATION---- Method: Luminex Flow Cytometry CLIA: [id number] ??CLIA Glycerine Plant Operator: VALENTINA GOLD MD,PhD Specimen Anatomical Collection Method Collection Time Receive d Time (Source) Location / / Volume Laterality Blood (Blood, 06/07/2021 5:47 AM 06/08/20 7:57 Venous) YOUTH COUNSELOR AM YOUTH COUNSELOR Margy Frzaier P.A.-C. LAB HLA ORDERABLES Performing Organization Address City/State/ZIP Code Phon e Number [facility] - [address] [place], [place] [address] [facility] [address] [place] [address] Laboratories-[facility] [address] HLA Class I SAB Antibody Screen (06/07/2021 5:47 AM YOUTH COUNSELOR) [facility] Method Time Signature Class I SAB Negative Not Applicable 06/08/2021 DBB8 Overall 3:59 PM YOUTH COUNSELOR Result Class I SAB 0 06/08/2021 DBB8 cPRA 3:59 PM YOUTH COUNSELOR Comment: ----ADDITIONAL INFORMATION---- cPRA is calculated for either HLA class I or II (except DPB1) antibodies with a normalized MFI >2000 u sing published UNOS frequencies (http://optn.transplant.hrsa .gov). ??For convenience, all HLA antibodies with a normalized MFI >500 are listed in the specificity patton. SAB A Specificity NONE 06/08/2021 3:59 PM YOUTH COUNSELOR DBB8 SAB B Specificity NONE 06/08/2021 3:59 PM YOUTH COUNSELOR DBB8 SAB C Specificity NONE 06/08/2021 3:59 PM YOUTH COUNSELOR DBB8 Comment: ----ADDITIONAL INFORMATION---- Method: Luminex Flow Cytometry CLIA: [id number] ??CLIA Glycerine Plant Operator: VALENTINA GOLD MD,PhD Specimen Anatomical Collection Method Collection Time Receive d Time (Source) Location / / Volume Laterality Blood (Blood, 06/07/2021 5:47 AM 06/08/20 7:57 Venous) YOUTH COUNSELOR AM YOUTH COUNSELOR Margy Frazier P.A.-C. LAB HLA ORDERABLES Performing Organization Address City/State/ZIP Code Phon e Number [facility] - [facility] [address] [place], [place] [address] [facility] [address] [place] [address] [facility] [address] HLA-DPB1 Confirmatory Typing by Low Resolution, Recipient Buccal Swab (06/07/2021 5:40 AM YOUTH COUNSELOR) [facility] Method Time Signature DPB1 - 1 DPB1*04:01 Not Applicable 06/18/2021 DBB8 Molecular 7:26 AM YOUTH COUNSELOR DPB1 - 2 DPB1*04:01 Not Applicable 06/18/2021 DBB8 Molecular 7:26 AM YOUTH COUNSELOR DPA1 - 1 DPA1*01 Not Applicable 06/18/2021 DBB8 Molecular 7:26 AM YOUTH COUNSELOR DPA1 - 2 DPA1*01 Not Applicable 06/18/2021 DBB8 Molecular 7:26 AM YOUTH COUNSELOR Test Method PCR - 06/12/2021 DBB8 Reverse 9:01 AM YOUTH COUNSELOR SSOP Comment: ----ADDITIONAL INFORMATION---- Molecular HLA typing reported as serolog ical equivalents and low to medium resolution molecular value s. ??For convenience, when not defined in the WHO Nomenclature a laboratory defined serologic equivalent has been provided. CLIA: [id number] ??CLIA Glycerine Plant Operator: VALENTINA GOLD MD,PhD Specimen Anatomical Collection Method Collection Time Receive d Time (Source) Location / / Volume Laterality Swab 06/07/2021 5:40 AM 7:55 YOUTH COUNSELOR AM YOUTH COUNSELOR Margy Frazier P.A.-C. LAB HLA ORDERABLES Performing Organization Address City/State/ZIP Code Phon e Number [facility] - [address] [place] [phone] [facility] [address] [place] [address] [facility] [address] [facility] [id number] Confirmatory Typing by Low Resolution, Recipient Buccal Swab (06/07/2021 5:40 AM YOUTH COUNSELOR) [facility] Method Time Signature A - 1 A2 Not Applicable 06/12/2021 DBB8 Equivalent 9:01 AM YOUTH COUNSELOR A - 2 A24 Not Applicable 06/12/2021 DBB8 Equivalent 9:01 AM YOUTH COUNSELOR A - 1 A*02 Not Applicable 06/12/2021 DBB8 Molecular 9:01 AM YOUTH COUNSELOR A - 2 A*24 Not Applicable 06/12/2021 DBB8 Molecular 9:01 AM YOUTH COUNSELOR B - 1 B44 Not Applicable 06/12/2021 DBB8 Equivalent 9:01 AM YOUTH COUNSELOR B - 2 B51 Not Applicable 06/12/2021 DBB8 Equivalent 9:01 AM YOUTH COUNSELOR B - 1 B*44 Not Applicable 06/12/2021 DBB8 Molecular 9:01 AM YOUTH COUNSELOR B - 2 B*51 Not Applicable 06/12/2021 DBB8 Molecular 9:01 AM YOUTH COUNSELOR Bw - 1 Bw4 Not Applicable 06/12/2021 DBB8 Equivalent 9:01 AM YOUTH COUNSELOR Bw - 2 Bw4 Not Applicable 06/12/2021 DBB8 Equivalent 9:01 AM YOUTH COUNSELOR DRB1 - 1 DR9 Not Applicable 06/12/2021 DBB8 Equivalent 9:01 AM YOUTH COUNSELOR DRB1 - 2 DR12 Not Applicable 06/12/2021 DBB8 Equivalent 9:01 AM YOUTH COUNSELOR DRB1 - 1 DRB1*09 Not Applicable 06/12/2021 DBB8 Molecular 9:01 AM YOUTH COUNSELOR DRB1 - 2 DRB1*12 Not Applicable 06/12/2021 DBB8 Molecular 9:01 AM YOUTH COUNSELOR Test Method PCR - 06/12/2021 DBB8 Reverse 9:01 AM YOUTH COUNSELOR SSOP Comment: ----ADDITIONAL INFORMATION---- Molecular HLA typing reported as serolog ical equivalents and low to medium resolution molecular value s. ??For convenience, when not defined in the WHO Nomenclature a laboratory defined serologic equivalent has been provided. CLIA: [id number] ??CLIA Glycerine Plant Operator: VALENTINA GOLD MD,PhD Specimen Anatomical Collection Method Collection Time Receive d Time (Source) Location / / Volume Laterality Swab (Mouth) 06/07/2021 5:40 AM 7:55 YOUTH COUNSELOR AM YOUTH COUNSELOR Narrative [facility] - 06/12/2021 9:01 AM YOUTH COUNSELOR Specimen Information: Specimen ID: [id number] Specimen Type: Swab Specimen Collection Start Date: ??5:40 AM Specimen Received Date: 06/08/2021 ??7: 55 AM Specimen ID: [id number] Specimen Type: Swab Specimen Collection Start Date: 021 ??5:40 AM Specimen Received Date: 06/08/2021 ??7: 55 AM Specimen ID: [id number] Specimen Type: Swab Specimen Collection Start Date: 021 ??5:40 AM Specimen Received Date: 06/08/2021 ??7: 55 AM Specimen ID: [id number] Specimen Type: Swab Specimen Collection Start Date: ??5:40 AM Specimen Received Date: 06/08/2021 ??7: 55 AM Margy Frazier P.A.-C. LAB HLA ORDERABLES Performing Organization Address City/State/ZIP Code Phon e Number [facility] - [facility] [address] [place], [place] [address] [facility] [address] [place] [address] [facility] [address] [facility] (ABNORMAL) Bilirubin, Direct (06/07/2021 5:29 AM YOUTH COUNSELOR) athologist Signature Bilirubin, 0.4 (H) 0.0 - 0.3 06/07/2021 DTL Direct, S mg/dL 7:11 AM YOUTH COUNSELOR Specimen Anatomical Collection Method Collection Time Receive d Time (Source) Location / / Volume Laterality Blood (Blood, 06/07/2021 5:29 AM 06/07/20 6:43 Venous) YOUTH COUNSELOR AM YOUTH COUNSELOR Marjorie Kidd APRN, C.N.P., Abhishek LAB BLOOD A DD-ON Performing Organization Address [facility] Phon e Number [facility] - [address] [place], [place] [id number] [place] [address] Transfuse Red Blood Cells : (06/06/2021 10:32 PM YOUTH COUNSELOR) Margy Frazier P.A.-C. BLOOD TRANSFUSION ORDER NAGI Transfuse Red Blood Cells : , 1 Units (06/06/2021 10:32 PM YOUTH COUNSELOR) Margy AlvesCZahraa BLOOD TRANSFUSION ORDER NAGI (ABNORMAL) Hemoglobin (06/06/2021 6:54 PM YOUTH COUNSELOR) athologist [facility] Hemoglobin 6.1 (L) 11.6 - 15.0 06/06/2021 DTL g/dL 7:09 PM YOUTH COUNSELOR Specimen Anatomical Collection Method Collection Time Receive d Time (Source) Location / / Volume Laterality Blood (Blood, 06/06/2021 6:54 PM 06/06/20 7:04 Venous) YOUTH COUNSELOR PM YOUTH COUNSELOR Margy AlvesCZahraa LAB BLOOD ADD-ON Performing Organization Address City/[facility] Code Phon e Number [facility] - [address] (ABNORMAL) NT-Pro B-Type Natriuretic Peptide (BNP) (06/06/2021 6:54 PM YOUTH COUNSELOR) athologist Signature NT-Pro BNP 03253 (H) <=155 pg/mL 06/06/2021 DT 7:47 PM YOUTH COUNSELOR Comment: NT-proBNP values less than 300 pg/mL hav e a 99% negative predictive value for excluding acute congestive heart elmo lure. A cutoff of 1200 pg/mL for patients with an eGFR<60 yields a diagno stic sensitivity and specificity of 89% and 72% for acute congestive heart f ailure. ??A diagnostic NT-proBNP cutoff of 900 pg/mL has been suggested i n adults 50-75 years of age in the absence of renal failure. Specimen Anatomical Collection Method Collection Time Receive d Time (Source) Location / / Volume Laterality Blood (Blood, 06/06/2021 6:54 PM 06/06/20 7:16 Venous) YOUTH COUNSELOR PM YOUTH COUNSELOR Margy Frazier P.A.-C. LAB BLOOD ADD-ON Performing Organization Address City/State/ZIP Code Phon e Number [facility] - [address] [place], [place] [address] [facility] [place] [address] [facility] [address] Transfuse Red Blood Cells : (06/06/2021 6:53 PM YOUTH COUNSELOR) Margy Frazier P.A.-C. BLOOD TRANSFUSION ORDER NAGI Transfuse Red Blood Cells : , 1 Units (06/06/2021 6:53 PM YOUTH COUNSELOR) Margy Frazier P.A.-C. BLOOD TRANSFUSION ORDER NAGI SARS Coronavirus 2, Molecular Detection, PCR, Varies Asymptomatic (06/06/2021 5:32 PM YOUTH COUNSELOR) [facility] Method Time Signature COVID-19, Swab, 06/06/2021 DTL PCR, Source Nasopharynx 10:00 PM YOUTH COUNSELOR COVID-19, Undetected Undetected 06/06/2021 DTL PCR, Result 10:00 PM YOUTH COUNSELOR Comment: SARS-CoV-2 RNA absent. This result does not rule out COVID-19 in the patient, as the sensitivity of the test depends o n the timing of the specimen collection and quality of the specimen. Result should be correlated with patient's history and clinical presentat ion. ----ADDITIONAL INFORMATION---- This RT-PCR test using the Telebit SARS-Co V-2 Assay ( [place].) performed on the Telebit Two Module System has received Emergency Use Authorization (EUA) by the U.S. Food and Drug Administration, and is modified from the exhibition organiser's instructions with a bridging study. Performance characteristics were verifie d by [facility] in a manner consistent with CLIA requirements. Visit the CDC website: https://www.cdc.g ov/coronavirus/ for the most recent guidelines on Eugene virus testing. Fact Sheet for Healthcare Providers: https://www.fda.gov/media/193995/downloa d Fact Sheet for Patients: https://www.fda.gov/media/751388/downloa d Specimen Anatomical Collection Method Collection Time Receive d Time (Source) Location / / Volume Laterality Varies 06/06/2021 5:32 PM 5:49 (Nasopharynx) YOUTH COUNSELOR PM YOUTH COUNSELOR Margy Frazier P.A.-C. LAB MICROBIOLOGY - GENE RAL ORDERABLES Performing Organization Address [facility] Phon e Number [facility] - [address] VRE PCR (06/06/2021 5:32 PM YOUTH COUNSELOR) [facility] Nascentric Method Time Signature Specimen Swab, 06/08/2021 DT Source Perirectal 12:52 PM YOUTH COUNSELOR VRE PCR Negative Negative 06/08/2021 DTL 12:52 PM YOUTH COUNSELOR Comment: ----ADDITIONAL INFORMATION---- This test was developed using an analyte specific reagent. Its performance characteristics were determined by [facility] in a manner consistent with CLIA requirements. This test has not bee n cleared or approved by the U.S. Food and Drug Administration. Specimen Anatomical Collection Method Collection Time Receive d Time (Source) Location / / Volume Laterality Varies 06/06/2021 5:32 PM 6:37 (Perirectal) YOUTH COUNSELOR PM YOUTH COUNSELOR Margy Frazier P.A.-C. LAB MICROBIOLOGY - GENE DAVID ORDERABLES Performing Organization Address [facility] Phon e Number [facility] - [address] (TTE) 2D ECHO DOPPLER COLOR (06/06/2021 5:17 PM YOUTH COUNSELOR) [facility] Method Time Signature Ejection Fraction 62 MC CV EIMS Proximal Ascending 34 MC CV EIMS Aorta Mid-Ascending Aorta 35 MC CV EIMS LV Mass Index 113 MC CV EIMS LV End-Diastolic 52 MC CV EIMS Diameter LV End-Systolic 34 MC CV EIMS Diameter MV e' Velocity 0.09 MC CV EIMS Medial MV e' Velocity 0.17 MC CV EIMS Lateral Left ventricular 38 MC CV EIMS stroke volume index Cardiac Output 8.92 MC CV EIMS Cardiac Index 4.31 MC CV EIMS LV Interventricular 11 MC CV EIMS Septal Wall Thickness LV Posterior Wall 12 MC CV EIMS Thickness LV Relative Wall 46 MC CV EIMS Thickness RV 4-Chamber Basal 58 MC CV EIMS Diameter RV 4-Chamber Mid 54 MC CV EIMS Diameter RV 4-Chamber Length 101 MC CV EIMS Tricuspid Annular S? 0.16 MC CV EIMS RV Free Wall Strain -11 MC CV EIMS TR Vmax 3.60 MC CV EIMS RA Pressure 15 MC CV EIMS RV Systolic Pressure 67 MC CV EIM S AV mean gradient 10 MC CV EIMS Aortic valve area 2.49 MC CV EIMS Aortic Valve 0.72 MC CV EIMS Dimensionless Index Anatomical Region Laterality Modality Other Specimen (Source) Anatomical Collection Method Collection Time Re ceived Time Location / / Volume Laterality 06/06/2021 1:13 PM YOUTH COUNSELOR Impressions 06/06/2021 5:21 PM YOUTH COUNSELOR Anemia, thyrotoxicosis, or another high output state could contribute to the increased Doppler velocities (hemoglobin 5.3 g/dL). ??Echo performed at the patient's bedside ([facility]) with the patient supine due to dyspnea and left sided discomfort. ??No previous studies available for comparison. ??LEFT VENTRICLE: ??Normal left ventricular chamber size. Normal left ventricular wall thickness. ??Flattening of the ventricular septum. ??Calculated 2-D linear left ventricular ejection fractio n 62 %. ??No regional wall motion abnormalities. Indeterminate left ventricular diastolic function. ??Left ventricular strain assessment not performed because of image quality. ??RI GHT VENTRICLE: ??Severely enlarged right ventricular chamber size. ??Moderate-severely reduce d right ventricular systolic function. ??Estimated right ventricular systolic pressure 67 mmHg (s ystolic blood pressure 108 mmHg). ??Averaged right ventricular free wall longitudinal peak systolic strain is -11 % (normal = more negative than -24%). ??ATRIA: ??Mildly enlarged left a trial size by visual estimate. ??Severely enlarged right atrial size by visual estimate. ??CARDIA C VALVES: ??Trileaflet aortic valve. ??Thickened aortic valve. ??No aortic valve regurgitation. ??Normal mitral valve. ??Trivial mitral valve regurgitation. ??Normal pulmonary valve. ??Normal pulmonary valve systolic velocities. ??Trivial pulmonary valve regurgitation. ??Tricusp id annulus dilatation. ??Incomplete tricuspid valve coaptation. ??Severe tricuspid valve reg urgitation. ??OTHER ECHO FINDINGS: ??Enlarged inferior vena cava size with reduced inspiratory collapse (<50%). ??Normal ascending aorta diameter. Abdominal aorta incompletely visualized. ??Normal abdominal aorta Doppler flow pattern. ??No atrial level shunt by color flow imaging . ??No intracardiac mass or thrombus, but the left atrial appendage cannot be visualized ad equately with transthoracic echo to exclude thrombus in this location. ??Small circumferential p ericardial effusion. For the complete report, see the [employer] Documents. Narrative 06/06/2021 5:21 PM YOUTH COUNSELOR For the complete report, see the [employer] Documents. Final Impressions 1. Normal left ventricular chamber size. 2. Calculated 2-D linear left ventricula r ejection fraction 62 %. 3. Left ventricular strain assessment no t performed because of image quality. 4. Severely enlarged right ventricular c hamber size. ??Moderate-severe reduction in right ventricular systolic function. 5. Estimated right ventricular systolic pressure 67 mmHg (systolic blood pressure 108 mmHg). 6. Averaged right ventricular free wall longitudinal peak systolic strain is -11 % (normal = more negative than -24%). 7. Tricuspid annulus dilatation causing incomplete tricuspid valve coaptation. ??Severe tricuspid regurgitation. 8. Enlarged inferior vena cava size with reduced inspiratory collapse (<50%). 9. Small circumferential pericardial eff usion. Procedure Note Vincent Lechuga M.D. - 06/06/2021Form atting of this note might be different from the original. For the complete report, see the [employer] Documents. Final Impressions 1. Normal left ventricular chamber size. 2. Calculated 2-D linear left ventricula r ejection fraction 62 %. 3. Left ventricular strain assessment no t performed because of image quality. 4. Severely enlarged right ventricular c hamber size. Moderate-severe reduction in right ventricular systolic function. 5. Estimated right ventricular systolic pressure 67 mmHg (systolic blood pressure 108 mmHg). 6. Averaged right ventricular free wall longitudinal peak systolic strain is -11 % (normal = more negative than -24%). 7. Tricuspid annulus dilatation causing incomplete tricuspid valve coaptation. Severe tricuspid regurgitation. 8. Enlarged inferior vena cava size with reduced inspiratory collapse (<50%). 9. Small circumferential pericardial eff usion. Findings Anemia, thyrotoxicosis, or another high output state could contribute to the increased Doppler velocities (hemoglobin 5.3 g/dL). Echo p erformed at the patient's bedside ([facility]) with the patient supine due to dyspnea and left sided discomfort. No previous studies available for comparison. LEFT V ENTRICLE: Normal left ventricular chamber size. Normal left ventricular wall thickness. Flattening of the ventricular septum. Calculated 2-D linear left ventricular ejection fractio n 62 %. No regional wall motion abnormalities. Indeterminate left ventricular diastolic function. Left ventricular strain assessment not performed because of image quality. RIGH T VENTRICLE: Severely enlarged right ventricular chamber size. Moderate-severely reduced right ventricular systolic function. Estimated right ventricular systolic pressure 67 mmHg (s ystolic blood pressure 108 mmHg). Averaged right ventricular free wall longitudinal peak systolic strain is -11 % (normal = more negative than -24%). ATRIA: Mildly enlarged left atria l size by visual estimate. Severely enlarged right atrial size by visual estimate. CARDIAC VALVES: Trileaflet aortic valve. Thickened aortic valve. No aortic valve regurgitation. No rmal mitral valve. Trivial mitral valve regurgitation. Normal pulmonary valve. N ormal pulmonary valve systolic velocities. Trivial pulmonary valve regurgitation. Tricuspid annulus dilatation. Incomplete tricuspid valve coaptation. Severe tricuspid valve regur gitation. OTHER ECHO FINDINGS: Enlarged inferior vena cava size with reduced inspiratory collapse (<50%). Normal ascending aorta diameter. Abdominal aorta incompletely visualized. Normal abdominal aorta Doppler flow pattern. No atrial level shunt by color flow imaging . No intracardiac mass or thrombus, but the left atrial appendage cannot be visualized ad equately with transthoracic echo to exclude thrombus in this location. Small circumferential per icardial effusion. For the complete report, see the [employer] Documents. Margy C Frazier P.A.-C. CV ECHO PROCEDURES [place] DX BONE MARROW BX & ASPIR (06/06/2021 4:00 PM YOUTH COUNSELOR) Specimen (Source) Anatomical Location Collection Method / Collectio n Time Received Time / Laterality Volume Bone Marrow Narrative [facility] - 06/06/2021 4:00 PM YOUTH COUNSELOR Stephan Fan R.N. ? 06/06/2021 ??4:00 PM Biopsy Bone Marrow Date/Time: 06/06/2021 4:00 PM Performed by: Stephan Fan R.N. Authorized by: Margy Frazier P.A.-C. Care team members present 1. Stephan Fan R.N. 2. Remberto Ward MLS(ASCP) PROCEDURE DETAILS Procedure: ??Bone Marrow biopsy and Bone Marrow aspiration Bone marrow biopsy Laterality: ??Left Location of biopsy: ??Posterior iliac cr est Patient position: ??Side lying Type of Needle: ??Manual bone marrow bio psy needle Findings: ??Aspirate obtained with spicu les noted Bone marrow aspiration Aspirate volume (mL): ??18 (attempted 3 times) CONSENT Consent obtained: written [employer] All relevant documentation and testing w ere reviewed and available. All required blood products, implants, devic es and or special equipment were made available as applicable. Pre-proced ure verification was conducted and the correct site was marked if required. A fire risk assessment was done as applicable. The procedural time-out w as conducted prior to performing the procedure and confirmed in a procedu ral pause. PRE-PROCEDURE DETAILS Appropriate hand hygiene, gown, cap, mas k, protective eyewear, sterile gloves, skin preparation, sterile drape, and strict aseptic technique were utilized as applicable for the procedure .: yes ?? Site preparation: chlorhexidine SEDATION / ANESTHESIA Anesthesia method: local infiltration Local infiltrate type: lidocaine POST-PROCEDURE DETAILS Procedure completed successfully: yes ?? Procedure tolorated: ??Well Post procedure pain scale: ??0/10 Complications: no apparent complications ?? COMMENTS 100 mg 1% Lidocaine given SQ. Margy Frazier P.A.-C. PROCEDURE/MINOR SURGICA L ORDERABLES Performing Organization Address City/State/ZIP Code Phon e Number [facility] NA US Abdomen Complete with Liver Doppler (06/06/2021 3:11 PM YOUTH COUNSELOR) Anatomical Region Laterality Modality Abdomen, Ultrasound RST LOS, Ultrasound ARZ LOS, Ultrasound FLA N/A Ultrasound LOS Specimen (Source) Anatomical Collection Method Collection Time Re ceived Time Location / / Volume Laterality 06/06/2021 4:11 PM YOUTH COUNSELOR Impressions 06/06/2021 4:31 PM YOUTH COUNSELOR 1. Hepatomegaly. Marked splenomegaly. 2. Hepatic and portal veins are patent w ith antegrade flow. Splenic vein is patent with antegrade flow where visuali zed. 3. Mild coarsening of the liver parenchy ma could be secondary to underlying chronic liver disease. 4. Unchanged minimal dilatation of extra hepatic duct. No significant intrahepatic biliary ductal dilatation d etected. 5. Unchanged splenic infarct. 6. Very small volume ascites. Narrative 06/06/2021 4:31 PM YOUTH COUNSELOR EXAM: US ABDOMEN COMPLETE WITH LIVER DOPPLER Exam performed with color and spectral D oppler analysis. COMPARISON: CT abdomen and pelvis 2020 FINDINGS: Liver: Hepatomegaly again seen. Mild coa rsening of the liver parenchyma could be secondary underlying chronic liver disea se. Doppler: Splenic vein is partially visua lized at the midline (with some obscuration due to overlying bowel gas) and patent with antegrade flow where seen. Portal and hepatic veins are paten t with antegrade flow. Main portal vein remains prominent in caliber. The main h epatic artery is patent with antegrade flow. Gallbladder: Cholelithiasis. Gallbladder is well-distended. No gallbladder wall thickening. Tiny amount of fluid at the gallbladder fossa may be related to very small volume ascites elsewhere. Negative sonographic Mackey sign. Intrahepatic ducts: Not dilated. Common duct: Minimally dilated measuring up to 0.7 cm in caliber where seen (unchanged since prior exam). Distal ext rahepatic duct not visualized due to shadowing overlying bowel gas. Pancreas: Not well visualized due to sha dowing overlying bowel gas. Right kidney: Length: 11.9 cm. Normal echogenicity. No hydronephrosis. Left kidney: Length: 12.3 cm. Normal echogenicity. No hydronephrosis. Spleen: Splenomegaly. Subcapsular hypoec hoic infarct at the caudal spleen measuring 2.8 cm x 2.1 cm x 2.2 cm, not significantly changed since comparison CT. Spleen length: 31.0 cm Aorta: Normal caliber. IVC: Normal where seen. Other: Very small volume ascites. Procedure Note Fausto Voss M.D. - 06/06/2021Forma tting of this note might be different from the original. EXAM: US ABDOMEN COMPLETE WITH LIVER DOP PLER Exam performed with color and spectral D oppler analysis. COMPARISON: CT abdomen and pelvis 2020 FINDINGS: Liver: Hepatomegaly again seen. Mild coa rsening of the liver parenchyma could be secondary underlying chronic liver disea se. Doppler: Splenic vein is partially visua lized at the midline (with some obscuration due to overlying bowel gas) and patent with antegrade flow where seen. Portal and hepatic veins are paten t with antegrade flow. Main portal vein remains prominent in caliber. The main h epatic artery is patent with antegrade flow. Gallbladder: Cholelithiasis. Gallbladder is well-distended. No gallbladder wall thickening. Tiny amount of fluid at the gallbladder fossa may be related to very small volume ascites elsewhere. Negative sonographic Mackey sign. Intrahepatic ducts: Not dilated. Common duct: Minimally dilated measuring up to 0.7 cm in caliber where seen (unchanged since prior exam). Distal ext rahepatic duct not visualized due to shadowing overlying bowel gas. Pancreas: Not well visualized due to sha dowing overlying bowel gas. Right kidney: Length: 11.9 cm. Normal echogenicity. No hydronephrosis. Left kidney: Length: 12.3 cm. Normal echogenicity. No hydronephrosis. Spleen: Splenomegaly. Subcapsular hypoec hoic infarct at the caudal spleen measuring 2.8 cm x 2.1 cm x 2.2 cm, not significantly changed since comparison CT. Spleen length: 31.0 cm Aorta: Normal caliber. IVC: Normal where seen. Other: Very small volume ascites. IMPRESSION: 1. Hepatomegaly. Marked splenomegaly. 2. Hepatic and portal veins are patent w ith antegrade flow. Splenic vein is patent with antegrade flow where visuali zed. 3. Mild coarsening of the liver parenchy ma could be secondary to underlying chronic liver disease. 4. Unchanged minimal dilatation of extra hepatic duct. No significant intrahepatic biliary ductal dilatation d etected. 5. Unchanged splenic infarct. 6. Very small volume ascites. Margy Frazier P.A.-C. IM US PROCEDURES US Lower Extremity Veins Bilateral (06/06/2021 3:06 PM YOUTH COUNSELOR) Anatomical Region Laterality Modality Lower Extremity, Ultrasound RST LOS, Ultrasound ARZ LOS, Champ ateral Ultrasound Ultrasound FLA LOS Specimen (Source) Anatomical Collection Method Collection Time Re ceived Time Location / / Volume Laterality 06/06/2021 3:18 PM YOUTH COUNSELOR Impressions 06/06/2021 3:19 PM YOUTH COUNSELOR Negative for lower extremity DVT. Narrative 06/06/2021 3:19 PM YOUTH COUNSELOR EXAM: US LOWER EXTREMITY VEINS BILATERAL Exam performed with color and spectral D oppler analysis. COMPARISON: None. Right Lower Extremity: Common Femoral Vein: Negative. Profunda Femoral Vein: Negative. Femoral Vein: Negative. Popliteal Vein: Negative. Gastrocnemius Veins: Negative where seen . Soleal Veins: Negative where seen. Posterior Tibial Veins: Negative where s een. Peroneal Veins: Negative where seen. Great Saphenous Vein: Negative where see n. Small Saphenous Vein: Not Evaluated. Popliteal Fossa: Negative. Left Lower Extremity: Common Femoral Vein: Negative. Profunda Femoral Vein: Negative. Femoral Vein: Negative. Popliteal Vein: Negative. Gastrocnemius Veins: Negative where seen . Soleal Veins: Negative where seen. Posterior Tibial Veins: Negative where s een. Peroneal Veins: Negative where seen. Great Saphenous Vein: Negative where see n. Small Saphenous Vein: Not Evaluated. Popliteal Fossa: Negative. Information on venous thrombosis and man agement can be found on the [employer] site. Link https://[employer].[facility] ic/clinical-answers/cnt-[id number]/[place]-204 1725 Procedure Note Keon Brooks M.B., Ch.B. - 06/06/2021 EXAM: US LOWER EXTREMITY VEINS BILATERAL Exam performed with color and spectral D oppler analysis. COMPARISON: None. Right Lower Extremity: Common Femoral Vein: Negative. Profunda Femoral Vein: Negative. Femoral Vein: Negative. Popliteal Vein: Negative. Gastrocnemius Veins: Negative where seen . Soleal Veins: Negative where seen. Posterior Tibial Veins: Negative where s een. Peroneal Veins: Negative where seen. Great Saphenous Vein: Negative where see n. Small Saphenous Vein: Not Evaluated. Popliteal Fossa: Negative. Left Lower Extremity: Common Femoral Vein: Negative. Profunda Femoral Vein: Negative. Femoral Vein: Negative. Popliteal Vein: Negative. Gastrocnemius Veins: Negative where seen . Soleal Veins: Negative where seen. Posterior Tibial Veins: Negative where s een. Peroneal Veins: Negative where seen. Great Saphenous Vein: Negative where see n. Small Saphenous Vein: Not Evaluated. Popliteal Fossa: Negative. Information on venous thrombosis and man agement can be found on the [employer] site. Link https://[employer].[facility]/top ic/clinical-answers/cnt-[id number]/cpm-204 1725 IMPRESSION: Negative for lower extremity DVT. Margy Frazier P.A.-C. IMG US PROCEDURES Hematopathology (06/06/2021 1:40 PM YOUTH COUNSELOR) Component Value Ref Test Analysis Performed Pathologis t Range Method Time At Signature 06/11/2021 [facility] 1:37 PM YOUTH COUNSELOR Report Jose Enrique Chong M.D. 06/11/2021 [facility] electronically 1:37 PM signed by YOUTH COUNSELOR I verify that I have examined all relevant slides/materials for the specimen(s) and rendered or confirmed the diagnosis. Gross Description Received in B5 and subsequently placed in formali n, labeled 06/11/2021 [facility] with the patient's name, medical record number, and bone 1:37 PM marrow biopsy are two de la garza-brown bone marrow cores, YOUTH COUNSELOR measuring 0.3 cm in average diameter by 3.2 cm in aggregate length. ??The specimen was decalcified prior to processing. The longest core is bisected and submitted with remaining core in cassette B1. ??Grossed by LMB. 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 See cytogenetics report for complete details. ADDENDUM Molecular analysis for next generation sequencing (NGSHM), bone marrow ([id number]; 06/06/2021): Pathogenic Mutations Detected: 1. CALR: Chr19(GRCh37):g.[id number]; NM_004343.3(CALR):c.1154_1155insTTGTC; p.Nhi604Qksye*47 (54%) 2. SF3B1: Chr2(GRCh37):g.904620598C>C; NM_012433.2(SF3B1):c.2098A>G; p.Tkf233Mgz (42%) No other pathogenic mutations were detected in the other genes tested on the panel at the reportable limit of assay detection. ??See full report for details. ??Please see the section of Panel Gene List in the full report for the complete list of genes tested. Variants of Uncertain Significance: None The VUS variants listed here (with approximate variant allele %) are not sufficiently characterized in the current literature and are therefore of uncertain clinical significance at this time. ??They are reported here for future reference in the event they become clinically significant in the light of new scientific data. Molecular Hematopathology studies interpreted by Keon Su M.D. Signed by Jose Enrique Chong M.D. 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 MICROSCOPIC DESCRIPTION Peripheral Blood: CBC - ??06/06/2021 9:27:00 AM HGB 5.3 g/dL; RBC 2.12 x10(12)/L; MCV 87.3 fL; RDW 26.9 %; WBC 3.3 x10(9)/L; PLT 99 x10(9)/L Cell ? % o f Total Cells ? NEUTROPHILS ? 68 ? LYMPHOCYTES ? 15 ? MONOCYTES ? 7 ? EOSINOPHILS ? 1 ? BASOPHILS ? 0 ? METAMYELOCYTES ? 5 ? MYELOCYTES ? 4 ? PROMYELOCYTES ? 0 ? BLASTS ? 0 ? OTHER CELLS ? 0 ? NRBC ? 10 ? Total Cells: 100 ? Peripheral Smear: ??Dacrocytes and dimorphic red blood cells. Few hypolobated neutrophils. Bone Marrow Aspirate/Touch Imprint/Biopsy: Cell ? % o f Total Cells ? NEUTROPHILS ? 19 ? METAMYELOCYTES ? 0 ? MYELOCYTES ? 3 ? PROMYELOCYTES ? 0 ? EOSINOPHILS ? 1 ? BASOPHILS ? 0 ? BLASTS ? 1 ? NORMOBLASTS ? 72 ? MONOCYTES ? 1 ? PROMONOCYTES ? 0 ? LYMPHOCYTES ? 3 ? PLASMA CELLS ? 0 ? Technical Comment : Count done on unit prep ? Total Cells: 500 ? Aspirate quality: Sparsely cellular. Biopsy quality: Adequate. M:E ratio: Decreased. Cellularity: ??Increased, 80%. Erythroid precursors: Increased quantity. ??Conspicuous left shift and atypia including frequent irregular nuclear contours. Myeloid precursors: Normal quantity. Normal morphology. Blasts not increased. Megakaryocytes: Increased quantity. ??Atypical morphology with large hypersegmented forms forming frequent clusters. Lymphocytes: No morphologic abnormalities. Plasma cells: Not increased. Other: ??Osteosclerosis. ANCILLARY STUDIES Iron stain, bone marrow aspirate: ??Storage iron not evaluable on an aparticulate aspirate. ??Abundant ring sideroblasts, accounting for 60% of erythroid precursors. Reticulin stain, bone marrow biopsy: ??Increased reticulin and collagenous fibrosis (MF-3) Immunohistochemical studies, bone marrow biopsy, antibodies to CD34 and CD71: ??CD34 shows no increase in blasts. ??CD71 highlights increase in erythroid precursors, including frequent clusters of pronormoblasts. Cytogenetic analysis, bone marrow aspirate: Sample has been forwarded for testing and results will be reported in an addendum. Molecular analysis for OncoHeme Next Gen Sequencing, Myeloid Neoplasms, bone marrow aspirate: Sample has been forwarded for testing. ??Results will be reported in an addendum. Specimen Anatomical Collection Method Collection Time Receive d Time (Source) Location / / Volume Laterality Varies 06/06/2021 1:40 PM 1:40 YOUTH COUNSELOR PM YOUTH COUNSELOR Narrative This result has an attachment that is no t available. Jimenez Bruce M.D., M.S. LAB SURG PATH ORDERABLES Performing Organization Address City/State/ZIP Code Phon e Number [facility] - [address] [place], [place] [address] [place] [address] [facility] [address] Fibrinogen (06/06/2021 1:28 PM YOUTH COUNSELOR) P athologist Signature Fibrinogen, P 333 200 - 393 06/06/2021 [facility] mg/dL 1:43 PM YOUTH COUNSELOR Specimen Anatomical Collection Method Collection Time Receive d Time (Source) Location / / Volume Laterality Blood (Blood, 06/06/2021 1:28 PM 06/06/20 1:35 Venous) YOUTH COUNSELOR PM YOUTH COUNSELOR Margy Frazier P.A.-C. LAB BLOOD ADD-ON Performing Organization Address City/[facility]/ZIP Code Phon e Number [facility] - [address] APTT (Activated Partial Thromboplastin Time) (06/06/2021 1:28 PM YOUTH COUNSELOR) P athologist Signature Activated 34 25 - 37 sec 06/06/2021 [facility] Partial 1:45 PM YOUTH COUNSELOR Thrombopl Time, P Specimen Anatomical Collection Method Collection Time Receive d Time (Source) Location / / Volume Laterality Blood (Blood, 06/06/2021 1:28 PM 06/06/20 1:35 Venous) YOUTH COUNSELOR PM YOUTH COUNSELOR Margy Frazier P.A.-C. LAB BLOOD ADD-ON Performing Organization Address [facility] Phon e Number [facility] - [address] (ABNORMAL) Prothrombin Time (PT) (06/06/2021 1:28 PM YOUTH COUNSELOR) Patholo gist Method Time Signature Prothrombin 15.4 (H) 9.4 - 12.5 06/06/2021 [facility] Time, P sec 1:43 PM YOUTH COUNSELOR INR 1.4 0.9 - 1.1 06/06/2021 [facility] 1:43 PM YOUTH COUNSELOR Comment: ----ADDITIONAL INFORMATION---- Standard intensity warfarin therapeutic range: 2.0 to 3.0 ?? High intensity warfarin therapeutic rang e: 2.5 to 3.5 Specimen Anatomical Collection Method Collection Time Receive d Time (Source) Location / / Volume Laterality Blood (Blood, 06/06/2021 1:28 PM 06/06/20 21 1:35 Venous) YOUTH COUNSELOR PM YOUTH COUNSELOR Margy Frazier P.A.-C. LAB BLOOD ADD-ON Performing Organization Address City/[facility]/ZIP Code Phon e Number [facility] - [address] [place], [place] [address] [place] [address] (ABNORMAL) Basic Metabolic Panel (06/06/2021 1:28 PM YOUTH COUNSELOR) athologist Signature Potassium, P 4.9 3.6 - 5.2 06/06/2021 [facility] mmol/L 2:04 PM YOUTH COUNSELOR Sodium, P 139 135 - 145 06/06/2021 [facility] mmol/L 2:04 PM YOUTH COUNSELOR Chloride, P 103 98 - 107 06/06/2021 [facility] mmol/L 2:04 PM YOUTH COUNSELOR Bicarbonate, P 26 22 - 29 06/06/2021 [facility] mmol/L 2:04 PM YOUTH COUNSELOR Anion Gap, P 10 7 - 15 06/06/2021 [facility] 2:04 PM YOUTH COUNSELOR BUN (Blood Urea 33 (H) 6 - 21 06/06/2021 [facility] Nitrogen), P mg/dL 2:04 PM YOUTH COUNSELOR Creatinine 1.01 0.59 - 06/06/2021 [facility] 1.04 mg/dL 2:04 PM YOUTH COUNSELOR eGFR-Black/Afri 73 >=60 06/06/2021 [facility] can [place] mL/min/BSA 2:04 PM YOUTH COUNSELOR Comment: ----ADDITIONAL INFORMATION---- Estimated GFR calculated using the 2009 CKD_EPI creatinine equation. eGFR Non-Black/ 64 >=60 mL/min/BSA 2:04 PM YOUTH COUNSELOR [facility] Comment: ----ADDITIONAL INFORMATION---- Estimated GFR calculated using the 2009 CKD_EPI creatinine equation. Calcium, Total, P 8.6 8.6 - 10.0 mg/dL 06/06/2021 2:04 PM YOUTH COUNSELOR [facility] Glucose, P 94 70 - 140 mg/dL 06/06/2021 2:04 PM YOUTH COUNSELOR M ETH Specimen Anatomical Collection Method Collection Time Receive d Time (Source) Location / / Volume Laterality Blood (Blood, 06/06/2021 1:28 PM 06/06/20 1:35 Venous) YOUTH COUNSELOR PM YOUTH COUNSELOR Margy Frazier P.A.-C. LAB BLOOD ADD-ON Performing Organization Address City/State/ZIP Code Phon e Number [facility] - [address] [place], [place] [address] [facility] [place] [address] [facility] [address] (ABNORMAL) Phosphorus Inorganic (06/06/2021 1:28 PM YOUTH COUNSELOR) athologist Signature Phosphorus 4.6 (H) 2.5 - 4.5 06/06/2021 [facility] (Inorganic), S mg/dL 3:42 PM YOUTH COUNSELOR Specimen Anatomical Collection Method Collection Time Receive d Time (Source) Location / / Volume Laterality Blood (Blood, 06/06/2021 1:28 PM 06/06/20 2:05 Venous) YOUTH COUNSELOR PM YOUTH COUNSELOR Margy Frazier P.A.-C. LAB BLOOD ADD-ON Performing Organization Address City/[facility] Phon e Number [facility] - [address] [place] [address] Uric Acid (06/06/2021 1:28 PM YOUTH COUNSELOR) athologist Signature Uric Acid, S 5.2 2.7 - 6.1 06/06/2021 [facility] mg/dL 3:42 PM YOUTH COUNSELOR Specimen Anatomical Collection Method Collection Time Receive d Time (Source) Location / / Volume Laterality Blood (Blood, 06/06/2021 1:28 PM 06/06/20 2:05 Venous) YOUTH COUNSELOR PM YOUTH COUNSELOR Margy Frazier P.A.-C. LAB BLOOD ADD-ON Performing Organization Address City/[facility] Phon e Number [facility] - [address] Thiamine (Vitamin B1), Whole Blood (06/06/2021 1:28 PM YOUTH COUNSELOR) athologist Signature Thiamine 98 70 - 180 06/09/2021 SDSC (Vitamin B1), nmol/L 9:26 AM YOUTH COUNSELOR WB Comment: ----ADDITIONAL INFORMATION---- This test was developed and its performa nce characteristics determined by [facility] in a manner consistent with CLIA requirements. This test has not been cleared or approved by the [place] and Drug Administration. Specimen Anatomical Collection Method Collection Time Receive d Time (Source) Location / / Volume Laterality Blood (Blood, 06/06/2021 1:28 PM 06/08/20 9:06 Venous) YOUTH COUNSELOR AM YOUTH COUNSELOR Margy Frazier P.A.-C. LAB BLOOD NON ADD-ON Performing Organization Address City/[facility]/ZIP Code Phon e Number [facility] [address] [place], [place] [address] [facility] [place] [address] Laboratory Medicine and Pathology [address] [place] Lipase (06/06/2021 1:28 PM YOUTH COUNSELOR) athologist Signature Lipase, S 25 13 - 60 U/L 06/06/2021 3:42 [facility] PM YOUTH COUNSELOR Specimen Anatomical Collection Method Collection Time Receive d Time (Source) Location / / Volume Laterality Blood (Blood, 06/06/2021 1:28 PM 06/06/20 21 2:05 Venous) YOUTH COUNSELOR PM YOUTH COUNSELOR Margy Frazier P.A.-C. LAB BLOOD ADD-ON Performing Organization Address City/[facility] Phon e Number [facility] - [address] [place], [place] [address] [place] [address] Amylase, Total (06/06/2021 1:28 PM YOUTH COUNSELOR) athologist Signature Amylase, Total, 28 28 - 100 06/06/2021 [facility] S U/L 3:42 PM YOUTH COUNSELOR Specimen Anatomical Collection Method Collection Time Receive d Time (Source) Location / / Volume Laterality Blood (Blood, 06/06/2021 1:28 PM 06/06/20 21 2:05 Venous) YOUTH COUNSELOR PM YOUTH COUNSELOR Margy Frazier P.A.-C. LAB BLOOD ADD-ON Performing Organization Address City/[facility]/ZIP Code Phon e Number [facility] - [address] [place], [place] [address] [place] [address] (ABNORMAL) Glucose 6 Phosphate Dehydrogenase Enzyme Activity (06/06/2021 1:28 PM YOUTH COUNSELOR) athologist Signature G6PD Enzyme 20.9 (H) 8.0 - 11.9 06/08/2021 [facility] Activity, B U/g Hb 12:07 PM YOUTH COUNSELOR Comment: Rctgczn-2-Sbupioumw Dehydrogenase (G6PD) deficiency is classified according to WHO criteria bas ed on enzyme activity level but accurate classificati on requires correlation with clinical and possibly g enetic data. Enzyme levels less than 10% of mean norm al (less than 1.0 U/g Hb) are found in WHO class I (ch ronic) and class II (episodic) variants. Levels between 10 a nd 60% (1.0 to 6.0 U/g Hb) can be seen in class III (ep isodic) variants or female carrier states and genotyping can be useful in this range. Levels greater than 60% (gre ater than 6.0 U/g Hb) are considered sufficient an d are seen in normal persons, female carrier states, o r G6PD variants with subclinical effect (WHO class IV). Note: G6PD deficiency can be masked in t he setting of reticulocytosis, markedly elevated WBCs or recent transfusion. If any of these are present in the setting of , chronic or episodic jaundice/a nemia, genotyping is recommended. If desired, please order G6PDB (G6PD Full Gene Sequencing). ----ADDITIONAL INFORMATION---- This test was developed and its performa nce characteristics determined by [facility] in a manner co nsistent with CLIA requirements. This test has not bee n cleared or approved by the U.S. Food and Drug Admin istration. Specimen Anatomical Collection Method Collection Time Receive d Time (Source) Location / / Volume Laterality Blood (Blood, 06/06/2021 1:28 PM 06/06/20 21 2:15 Venous) YOUTH COUNSELOR PM YOUTH COUNSELOR Margy Frazier P.A.-C. LAB BLOOD ADD-ON Performing Organization Address City/State/ZIP Code Phon e Number [facility] - [address] [place], [place] [address] [facility] [place] [address] [facility] [address] ECG 12 Lead (06/06/2021 1:11 PM YOUTH COUNSELOR) P athologist Signature Ventricular Rate 113 BPM MUSE ECG/Min [place] Interval 158 ms MUSE QRSD Interval 74 ms MUSE QT Interval 342 ms MUSE QTC Interval 469 ms MUSE P [place] 6 degrees MUSE R [place] 67 degrees MUSE T Wave [place] 2 degrees MUSE Specimen Anatomical Collection Method Collection Time Receive d Time (Source) Location / / Volume Laterality 06/06/2021 1:11 PM 1 1:42 YOUTH COUNSELOR PM YOUTH COUNSELOR Impressions MUSE - 06/06/2021 1:42 PM YOUTH COUNSELOR Sinus tachycardia Nonspecific ST and T wave abnormality When compared with ECG of 01-AUG-2020 10 :10, Vent. rate has increased BY ??39 BPM Reviewed by REG Limon Narrative This result has an attachment that is no t available. Procedure Note Kwesi Castillo Jr., M.D. - 06/06/2021For matting of this note might be different from the original. IMPRESSION: Sinus tachycardia Nonspecific ST and T wave abnormality When compared with ECG of 01-AUG-2020 10 :10, Vent. rate has increased BY 39 BPM Reviewed by REG Limon Margy Frazier P.A.-C. ECG ORDERABLES Performing Organization Address City/State/ZIP Code Phon e Number MUSE MUSE NA Chromosome Analysis, Hematologic Disorders, Bone Marrow (06/06/2021 10:19 AM YOUTH COUNSELOR) Component Value Ref Test Analysis Performed At [facility] gist Range Method Time Signature Result Summary Abnormal 06/14/2021 DTL 8:04 AM YOUTH COUNSELOR Karyotype 46,XX,del(13)( 06/14/2021 DTL q12q14)[16]/46 8:04 AM YOUTH COUNSELOR ,XX[4] Reason for MPN 06/14/2021 DTL referral 8:04 AM YOUTH COUNSELOR Specimen Bone Marrow 06/14/2021 DTL 8:04 AM YOUTH COUNSELOR Method Culture 06/14/2021 DTL without 8:04 AM YOUTH COUNSELOR mitogens Banding Method Band Resolution: 06/14/2021 DTL <400 8:04 AM YOUTH COUNSELOR Stain Name ? Cells Analyzed Cells ? Karyogr ams ? Counted ? Prepared ? GTL ? 20 ? 0 ? 3 ? Total ? 20 ? 0 ? 3 ? [place] to Stain Name: GTL=G-banding; QFQ=Q-banding; DAPI=DAPI-staining; CBL=C-banding; AGNOR=Silver-staining; NON=Non-banded The sum of Cells Analyzed and Cells Counted equals the total cells examined. Additional Previous Studies 06/14/2021 DTL Information DATE ?SPECIMEN ?? RESULT 8:0 4 AM YOUTH COUNSELOR 06/01/2020 ??Marrow ? 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 Clinical and pathologic correlation is recommended. This test was ordered in the context of a [facility] pathology consultation/case (#[id number]), and this result should be interpreted within the context of the pathology consultation/report. Specimen Anatomical Collection Method Collection Time Receive d Time (Source) Location / / Volume Laterality Bone Marrow 06/06/2021 10:19 06/08/2021 AM YOUTH COUNSELOR 11:04 AM YOUTH COUNSELOR Narrative This result has an attachment that is no t available. Jimenez Bruce M.D., M.S. LAB GENETIC TESTING Performing Organization Address City/State/ZIP Code Phon e Number [facility] - [address] [place], [place] [address] [facility] [place] [address] [facility] [address] OncoHeme NGS for Myeloid Neoplasms (06/06/2021 10:19 AM YOUTH COUNSELOR) Component Value Ref Test Analysis Performed Pathologis t Range Method Time At Signature Specimen Type Bone marrow 06/26/2021 DTL 2:33 PM YOUTH COUNSELOR Indication for PMF 06/26/2021 DTL Test 2:33 PM YOUTH COUNSELOR NGSHM Result See Interpretation 06/26/2021 DTL 2:33 PM YOUTH COUNSELOR Pathogenic 1. CALR: Chr19(GRCh37):g.[id number]; 06/26/2021 DTL Mutations NM_004343.3(CALR):c.1154_1155insTTGTC; p.Nlu983Eczvn*4 7 (54%) 2:33 PM Detected YOUTH COUNSELOR 2. SF3B1: Chr2(GRCh37):g.861193196U>C; NM_012433.2(SF3B1):c. 2098A>G; p.Gfz591Fdy (42%) No other pathogenic mutations were detected in the oth er genes tested on the panel at the reportable limit of assay detection . ??See below for Variants of Unknown Significance and Additional Notes. ??Ple ase see the section of Panel Gene List below for the complete list of genes tested. Clinical Trials Information regarding possib clinical trials for this patient can be found 06/26/2021 DTL at the following sites: 2:33 PM YOUTH COUNSELOR 1). ClinicalTrials.gov: http://clinicaltrials.gov/ct2/search/advanced 2). [facility]: http://www.[place].[facility]/research/clinical-trials 3). National Cancer [place]: http://www.cancer.gov/clinicaltrials/search 4). Molecular Match: https://www.molecularRealMassivetch.com/ Variants of None 06/26/2021 DTL Unknown 2:33 PM Significance The VUS variants listed here (with approximate variant allele %) are not YOUTH COUNSELOR (VUS) sufficiently characterized in the curren t literature and are therefore of uncertain clinical significance at this time. They are repor latonya here for future reference in the event they become clinic ally significant in the light of new scientific data. Additional None 06/26/2021 DTL Information 2:33 PM YOUTH COUNSELOR Method DNA is extracted from the peripheral blood or bone mar row sample and 06/26/2021 DTL following library preparation by hybrid capture, subjected to next generation 2:33 PM sequencing (NGS) with post-sequencing analysis o f tumor-associated mutations. YOUTH COUNSELOR Performance characteristics of NGS panel: Single base substitutions: accuracy >99%; reproducibility 10 0% (intra- and interassay); sensitivity 5-10% variant allele fraction wit h a minimum depth coverage of 250X. Insertion/deletion events: accuracy >99%; reproducibility 10 0% (intra- and interassay); sensitivity 5-10% variant allele fraction wit h a minimum depth coverage of 250X. This test was developed and its performance characteristics determined by [facility] in a manner consistent with CLIA requireme nts. This test has not been cleared or approved by the U.S. Food and Drug Administr atamerican healthcare systems. Disclaimer CLINICAL DISCLAIMER 06/26/2021 DTL Mutation calls detected between 5-10% variant allele f ractions (VAF) may 2:33 PM indicate low-level (i.e. subclonal) tumor populations, although the clinical YOUTH COUNSELOR significance of these findings may not be clear. ??Some appa rent mutations classified as VUS may represent rare or low frequency polymorphisms. ??A low incidence of gene mutations associated with myeloid neoplasm s can also be detected in hematopoietic cells with advancing age in some i ndividuals without evidence of a hematologic malignancy (clonal hemato poiesis) and these alterations may not be clearly distinguishable from tu mor-associated mutations (PMID [id number] 37). ??Prior treatment for hematologic malignancy could affect the results obtained in this a ssay. ??In particular, prior allogeneic hematopoietic stem cell transplant (HSCT) m ay cause difficulties in resolving somatic or polymorphic alterations, or in assigning variant calls correctly to donor and recipient fractions, if pertinent clinical or laboratory information (e.g. chimeri sm engraftment status) is not provided. ??Correlation with clinical, histopathologic and a dditional laboratory findings is required for final interpretation of these results. This assay does not distinguish between somatic and ge rm line alterations in analyzed gene regions, particularly with VAF near 50% or 100%. ??If nucleotide alterations in genes associated with germ line m utation syndromes are present and there is also a strong clinical suspicion or famil y history of malignant disease predisposition, additional genetic testi ng and appropriate counseling may be indicated. ??This report interpre tation is based on current medical and scientific literature, but clinical significance may not be completely established for all reported target gene abnormalities identified. ??The final interpretation of results for clinical management of the pat ient is the responsibility of the managing physician. TECHNICAL DISCLAIMER The depth of sequencing coverage may be variable for some target regions, but assay performance below the minimum acceptable criteria, or for failed regions are noted. ??Analysis of rare (l ow allele frequency) polymorphisms may be problematic in some cases. A low tumor cell percentage in the sample may affect the true mutation VAF and/or sensitivity. ??Suboptima l- performing regions (i.e. less than the expected minimum depth of covera ge) may affect analytic sensitivity for detecting lower level mutations. ?? This is a qualitative test. ??The variant read fractions are provide d for information only and represent a relative proportion of mutated alleles, but do not indicate a measure of analytical sensitivity for the given g mayra; assay sensitivity is as stated in the method summary. ??Some francis ic or genomic alterations, such as large insertion/deletion (indel) events , copy number alterations (CLAMP TRUCK DRIVER) and gene translocation events are not dete cted by this assay. OncoHeme Panel ANKRD26 ??(NM_014915.2) 5'UT R, exons 1-4, intron c.172, ??ASXL1 ??(NM_015338.5) 06/26/2021 DTL Gene list exons 10-13, ??BCOR ??(NM_00 7132950.1) exons 4-15, ??CALR (NM_004343.3) exon 9, 2:33 PM CBL ??(NM_005188.3) intron 7 last 100bps before start of e xon 8, exon 8, YOUTH COUNSELOR intron 8, and exon 9, ??CEBP A ??(NM_004364.4) exon 1, ??CSF3R(NM_000760.3) exons 14 and 17, ??DDX41 ??(NM_016 222.2) exons 1-17, ??DNMT3A(NM_022552.4) exons 8-23, ELANE ??(NM_001972.2) exons 1-5, ??ETNK1 (NM_018638.4) exon s 2-5, ??ETV6 (NM_001987.4) exons 3-8, ??EZH2 ??(NM_004456.4) exons 2-20, ??FLT3 (NM_004119.2) exons 14-20, ??GATA1 ??(NM_002049.3) exons 2 a nd 4, ??GATA2 (NM_001145661.1) exons 3-7, intron 5, c. 1017+1 - 1017+730, ??IDH1(NM_005896.3) exon 4, ??IDH2 ??(NM_002168. 3) exon 4, ??JAK2 ??(NM_004972.3) exons 12-16, ??KDM6A (UTX) (NM_021140.3) exons 1 -29, ??KIT ??(NM_000222.2) exons 8-11 and 17, ??KRAS (NM_033360.3) exons 2-3, ?? MPL ??(NM_005373.2) exons 10-12, ??NPM1(NM_002520.6) exons 9-11, to -30 before ex on 11, ??NRAS ??(NM_002524.4) exons 2 and 3, ??PHF6 (NM_001015877.1) exons 2-10, ??PTPN11 ??(NM_002834.3) exons 3-4 and 12-13, RAD21 ??(NM_006265.2) exons 1, 2, 4-7, 9-11, 13, 14, exon 10 flank 15bp, RUNX1 ??(NM_001001890.2) exons 1-6, intron 4 c.725-13T>A and intron 5 c.886+1-4del, ??SETBP1 ??(NM_015559.2) partial e xon 4; amino acids 400 - 950, SH2B3 ??(LNK) (NM_005475.2) exon 2-8, ??SF3B1 ??(NM_012433.2) exons 13-16, SRP72 (NM_006947.3) exons 6, 10, ??SMC3 ??(NM _005445.3) exons 7, 8, 13, 17, 19, 21, 29, ??SRSF2 ??(NM_003016.4) exons 1 and 2, ??STAG2 ??(NM_001042750.1) exons 4-34, 12, 17 and 22 flank 15bp, ??TERT ??(NM_198253.2) exons 2-16, TET2(NM_001127208.2) exons 3-11, ??TP53 ??(NM_000546.4) exon s 4-9, U2AF1(NM_001025203.1) exons 2, 6, and 8, ??WT1 ??(NM_024426.2) exons 1-10, and ZRSR2 ??(NM_005089.3) exons 1-11. For some genes, the transcript IDs used in this analys is may not be the same as in other cancer mutation databases, such as COSMIC (http://cancer.[employer].ac.uk/cosmic). Variants will be reported out using version HGVS nomenclatur e v15.11. Released by Signing Pathologist: 06/26/2021 DTL Keon Su, 2:33 PM M.Juan YOUTH COUNSELOR Interpretation These results are considered preliminary and require complete integration 06/26/2021 DTL with the current pathology case [id number] for final i nterpretation. ??The 2:33 PM result should NOT be interpreted in isolation for the purposes of diagnosis YOUTH COUNSELOR or clinical management. 1. CALR: Chr19(GRCh37):[id number]; NM_004343.3(CALR):c.1154_1155insTTGTC; p.Jtm592Apphq*47 Normal gene/protein function : The ??CALR ??gene, located on chromosome 19p13.2, encodes for calreticulin, a multifunctional protein playing roles in endoplasmic reticulum (ER) protein folding, calcium homeosta sis, cellular proliferation, apoptosis and immunogenic cell (Jose E parham et al., 2013, [id number]). Mutation effect: The p.Qik522Prcbj*47 frameshift alteration results in a 5 base-pair (bp) insertion, and is the second most commo n type of somatic CALR mutation (type 2, approximately 32%) seen in myeloproliferat otoniel neoplasms (MPN). Pathogenic somatic CALR mutations in MPN reported t o date are exon 9 frameshift insertions and/or deletions (indels). They genera te the same alternative reading frame resulting in a mutant protein with a C-terminus neoepitope (Jocy et al., 2013, [id number]; Callie hannon t al., 2013, 78345572; Asya et al., 2019, [id number]). CALR mutations have been identified in the neoplastic hematopoietic stem and progenitor cells. The mu tant CALR protein has been shown to bind and constitutively activate MPL and t he downstream ELSI-STAT pathway. The interaction between the mutant CALR an d MPL occurs presumptively through a CALR conformational change ind uced by the C-terminus neoepitope (Araki et al., 2016, [id number]; 2017, 44052580; Clara marino et al., 2016, 82216284). It has been reported that CALR type 1/lik e and type 2/like mutants were sufficient to induce a MPN phenotype in r etroviral mouse models (Nestor et al., 2016, 40448861; Wang et al., 2019, 336 09349). Disease associations: Frameshift indel mutations in CA LR are the second most frequent somatic mutation after JAK2 in primary myelofibrosi s (PMF) and essential thrombocythemia (ET) patients. CALR mutations are essentially mutually exclusive with JAK2 or MPL mutations an d are observed at a frequency of approximately 49-88% in JAK2 and MPL mutation negative PMF and ET, but are not found in polycythemia vera (PV). CALR mutation is associ ated with decreased risk of thrombosis in both ET and PMF, and showed a favorable impact on survival in PMF patients. CALR mutations are also identified at significantly lower frequencies in other myeloid neoplasms such as refractory anemia with ring sideroblasts associated with marked thrombo cytosis (13%), myelodysplastic syndrome (8%), chronic myelomonocytic leukem ia (3%) or atypical chronic myeloid leukemia (3%)(Klkurt et al., 2013, 92949263; Sharonia et al., 2013, 71364064; Kaye et al., 20 14, [id number]; Rotlouisao et al., 2014, ??60398002; Tefferi et al., 2014, 21281202). Therapeutic implications: Currently, there is no therapy d irectly targeting CALR mutations in myeloproliferative neoplasm patients. Ho werylie, two kinase inhibitors, ruxolitinib and fedratinib, have been FDA-approv ed for the treatment of myelofibrosis (MF) regardless of molecular ronny er status (https://www.nccn.org/professionals/physician_gl s/pdf/mpn.pdf). Specifically, the JAK1/2 inhibitor ruxolitinib is FDA-approved for treatme nt in adult patients with intermediate or high-risk MF, including primar y MF, post-polycythemia vera MF, and post-essential th rombocythemia MF, or in adult patients with polycythemia vera and inadequate respons e to or intolerance of hydroxyurea (https://www.accessdata.fda.gov/drugsatf da_docs/label/312670e637oyx.pdf). Ruxolitinib demonstrated efficacy in improving constituti onal symptoms and reducing spleen size (Connie et al., 2012, 91982194; Hansel bailey et al., 2012, 99035839). In a phase 2 clinical trial, it demonstrate d modest antileukemic activity as a single agent in patients wi th refractory post-MPN AML (Gloria et al., 2012, 50983850). The FDA has als o approved fedratinib, a JAK2 inhibitor that reduces phosphorylation of STAT3/5, for the treatment of adults with intermediate-2 or high-risk primary or second kasie MF (i.e. post-polycythemia vera or post-essential thrombocythemia MF) (https://www.accessdata.fda.gov/drugsatf da_docs/label/591604p587ugo.pdf). 2. SF3B1: Chr2(GRCh37):g.[id number]>C; NM_012433.2(SF3B1):c. 2098A>G; p.Bwy789Iqe Normal gene/protein function: The SF3B1 gene, located on c hromosome 2q33.1, encodes subunit 1 of the splicing factor 3b protein co mplex. This complex is a member of the RNA spliceosome and is involved in 3' splice site recognition and pre-mRNA processing during gene night assistant (Milo et al., 2014, 69650158; Natanael et al., 2013, 32353729; Kassie et al., 20 11, 35140937). Mutation effect: The missense c.2098A>G (p.K700E) vari ant occurs commonly in hematologic neoplasms and accounts for more than half of woo atic SF3B1 mutations. Mutations in SF3B1 contribute to tumorigenesis in hematologic malignancies through induction of abnormal trans cription and alternative gene splicing (Milo et al., 2014, 98023105; Natanael et al. , 2013, 74492039; Kassie et al., 2011, 97486219). Disease associations: Somatic mutations in SF3B1 have been identified in both myeloid and lymphoid tumors with similar mutation distributi on (Natanael et al., 2013, 47636303; Wan and Magana, 2013, 70313178; Tobin chavez et al., 2011, 41254277; Thierryti et al., 2011, 47351851). SF3B1 is mutate d in 20-28% of myelodysplastic syndrome (MDS) and is particularly prevalent (>80%) in MDS with ring sideroblasts (MDS-RS) and the myeloproliferative/m yelodysplastic neoplasm refractory anemia with ring sideroblasts associated with ??marked thrombocytosis (MDS/MPN-RS-T)(Mame and Stui, 201 5, 24443473; Janine et al., 2015, 90872293; Chase et al.,2013, 97195355). The majority of studies showed good prognosis in OW9W9-rhbeofo l ow-risk MDS(Janine et al., 2015, 30302374; Janine et al., 2014, 41226673; Hattie et al., 2015, 92659983; Natanael et al., 2013, 01432544; Mame and Stu fairbanks, 2015, 08352694). EB0W1-liwttx MDS has been proposed as a distinc t disease subtype by the International Working Group for the Prognosis of MDS with specified diagnostic and exclusion criteria (Janine et al., 2020, 3 [id number]). In acute myeloid leukemia (AML), SF3B1 mutations are seen in approximately 11% of secondary AML and only 1% of de moe AML; they are highly associated with secondary AML and a worse clinical outcome (Jose D dickerson et al., 2015, 27830531). In chronic lymphocytic leukemia (CLL), SF3B1 mutations are s een in approximately 10-15% of cases and are more commonly as sociated with advanced disease and poor prognosis (Colin and Magana, 2013, 23 319306; Natanael et al., 2013, 48193866). Therapeutic implications: There is no currently available th erapy directly targeting spliceosome mutations. However, in schuyler lt patients with very low- to intermediate-risk MDS-RS or MDS/MPN-RS-T, Luspatercept-aamt, a recombinant fusion protein that binds TGF-beta superfamily ligands and r educes Smad2/3 signalling, was approved by the Food and Drug Administration (10/2019) for the treatment of anemia failing an erythropoiesis stimulatin g agent and requiring 2 or more red blood cell (RBC) units over 8 weeks (https://www.fda.gov/drugs/resources-inf cxauvigc-btsgzwqp-vywec/kjc-awyusosd-k sadnnskslrq-sjqb-gtyagh-adults-mds). Specimen Anatomical Collection Method Collection Time Receive d Time (Source) Location / / Volume Laterality Varies 06/06/2021 10:19 06/08/2021 AM YOUTH COUNSELOR 11:36 AM YOUTH COUNSELOR Narrative This result has an attachment that is no t available. Jimenez Bruce M.D., M.S. LAB GENETIC TESTING Performing Organization Address City/State/ZIP Code Phon e Number [facility] - [address] [place], [place] [address] [place] [address] [facility] [address] Cytomegalovirus Ab, IgM and IgG (06/06/2021 9:27 AM YOUTH COUNSELOR) Patholo gist Method Time Signature Cytomegalovirus Ab, Negative Negative 06/08/2021 [facility] IgM, S 9:39 AM YOUTH COUNSELOR Cytomegalovirus Ab, Negative Negative 06/08/2021 [facility] IgG, S 9:39 AM YOUTH COUNSELOR Specimen Anatomical Collection Method Collection Time Receive d Time (Source) Location / / Volume Laterality Blood (Blood, 06/06/2021 9:27 AM 06/06/20 5:55 Venous) YOUTH COUNSELOR PM YOUTH COUNSELOR Margy Frazier P.A.-C. LAB MICROBIOLOGY - BLOO D ORDERABLES Performing Organization Address City/State/ZIP Code Phon e Number [facility] [address] [place], [place] [address] [facility] [place] [address] Laboratory Medicine and Pathology [address] [place] documented in this encounter Visit Diagnoses Diagnosis Myelofibrosis (HCC) Myelofibrosis (HCC) Pancytopenia (HCC) Splenomegaly Acquired Fluid Overload Unspecified Abdominal Pain Anxiety Insomnia Tachycardia Sinus Hyperphosphatemia Failure Heart Right (HCC) Regurgitation Tricuspid Hyperuricemia Edema Elevated Creatinine Gastroesophageal Reflux Disease Hypertension Pulmonary (HCC) documented in this encounter Admitting Diagnoses Diagnosis Myelofibrosis (HCC) documented in this encounter Administered Medications Inactive Administered Medications - up to 3 most recent administrations Medication Order MAR Action Action Date Dose Rate Site acetaminophen tablet 1,000 mg Given 06/10/2021 4:09 PM YOUTH COUNSELOR 1,000 mg (TYLENOL) 1,000 mg, oral, Once, On Fri06/10/21 at 1615, For 1 dose allopurinoL tablet 300 mg (ZYLOPRIM) Given 06/11/2021 8:25 AM YOUTH COUNSELOR 300 mg 300 mg, oral, Daily, First dose on Fri06/06/21 at 1415 Given 06/10/2021 10:18 AM YOUTH COUNSELOR 300 mg Given 06/09/2021 9:24 AM YOUTH COUNSELOR 300 mg calcium acetate(phosphat bind) capsule Given 06/09/2021 4:24 PM YOUTH COUNSELOR 1,334 mg 1,334 mg (PHOSLO) 1,334 mg, oral, 3 times daily with meals, First dose on Fri06/08/21 at 0800, 667 mg calcium acetate contains 169 mg of elemental calcium Given 06/09/2021 9:23 AM YOUTH COUNSELOR 1,334 mg Given 06/08/2021 6:46 PM YOUTH COUNSELOR 1,334 mg calcium acetate(phosphat bind) capsule Given 06/11/2021 11:55 AM YOUTH COUNSELOR 2,001 mg 2,001 mg (PHOSLO) 2,001 mg, oral, 3 times daily with meals, First dose (after last modification) on Fri06/10/21 at 0800, 667 mg calcium acetate contains 169 mg of elemental calcium Given 06/11/2021 8:25 AM YOUTH COUNSELOR 2,001 mg Given 06/10/2021 5:35 PM YOUTH COUNSELOR 2,001 mg calcium carbonate chewable tablet Given 06/10/2021 4:4 6 PM YOUTH COUNSELOR 400 mg of calcium 400 mg of calcium (TUMS) 400 mg of calcium, oral, 3 times daily PRN, indigestion, heartburn, Starting on Fri06/06/21 at 1352, Doses listed are in mg of elemental calcium. Take with food. 500 mg calcium carbonate contains 200 mg of elemental calcium. enoxaparin injection 40 mg Given 06/11/2021 8:25 AM YOUTH COUNSELOR 40 mg Right Upper Abdomen (LOVENOX) 40 mg, subcutaneous, Every 24 hours scheduled, First dose on Fri06/06/21 at 1400 Given 06/10/2021 10:18 AM YOUTH COUNSELOR 40 mg Righ t Lower Abdomen Given 06/09/2021 9:24 AM YOUTH COUNSELOR 40 mg Left Upper Abdomen folic acid tablet 400 mcg Given 06/11/2021 8:26 AM YOUTH COUNSELOR 400 mcg 400 mcg, oral, Daily, First dose on Aruna 06/07/21 at 0900 Given 06/10/2021 10:19 AM YOUTH COUNSELOR 400 mcg Given 06/09/2021 9:24 AM YOUTH COUNSELOR 400 mcg furosemide 1 mg/mL in NaCl 0.9% 100 New Bag 06/07/2021 8:47 AM YOUTH COUNSELOR 5 mg/hr 5 mL/hr mL infusion (LASIX) 2.5 mg/hr (2.5 mL/hr), intravenous, Continuous, Starting on Fri06/06/21 at 1815, Provider to titrate, goal of being net negative 2L in 24 hours Do NOT refrigerate., Type: Do Not Titrate Rate/Dose Change 06/07/2021 5:47 AM YOUTH COUNSELOR 5 mg/hr 5 mL/hr New Bag 06/06/2021 7:57 PM YOUTH COUNSELOR 10 mg/hr 10 mL/hr furosemide 1 mg/mL in Rate/Dose Verify 06/09/2021 5:00 PM 2.5 mg/hr 2.5 mL/hr NaCl 0.9% 100 mL infusion YOUTH COUNSELOR (LASIX) 2.5 mg/hr (2.5 mL/hr), intravenous, Continuous, Starting on Aruna 06/07/21 at 1530, Do NOT refrigerate., Type: Do Not Titrate Rate/Dose Change 06/09/2021 4:09 PM YOUTH COUNSELOR 2.5 mg/hr 2.5 mL/hr New Bag 06/09/2021 8:19 AM YOUTH COUNSELOR 5 mg/hr 5 mL/hr furosemide injection 40 mg (LASIX) Given 06/06/2021 4:17 PM YOUTH COUNSELOR 40 mg 40 mg, intravenous, Once, On Fri06/06/21 at 1400, For 1 dose, Following pRBC furosemide injection 40 mg (LASIX) Given 06/11/2021 4:03 PM YOUTH COUNSELOR 40 mg 40 mg, intravenous, Once, On 06/11/21 at 1530, For 1 dose, After blood Adults: Doses less than 120 mg: IV push over 20 mg/minute. Doses 120 mg or greater: IVPB at 4 mg/minute. Peds/Neonates: Doses less than 120 mg over 0.5 mg/kg/minute. Doses 120 mg or greater: IVPB at 4 mg/minute. influenza quadrivalent (PF) (6 Given 06/06/2021 6:20 PM YOUTH COUNSELOR 0.5 mL Left Deltoid months & older) vaccine 0.5 mL (FLUZONE/FLUARIX) 0.5 mL, intramuscular, Once, On Fri06/06/21 at 1500, For 1 dose iohexoL 350 mg iodine/mL solution 1-200 mL Given 06/07/2021 10:16 AM YOUTH COUNSELOR 100 mL (OMNIPAQUE) 1-200 mL, intravenous, Once in imaging, contrast, Starting on Aruna 06/07/21 at 1015, For 1 dose, Imaging Protocol Orders, Dose per Radiant Medication Guidelines LORazepam tablet 1 mg (ATIVAN) Given 06/11/2021 9:46 AM YOUTH COUNSELOR 1 mg 1 mg, oral, 3 times daily PRN, anxiety, Starting on Fri06/06/21 at 2039 Given 06/10/2021 8:38 PM YOUTH COUNSELOR 1 mg Given 06/09/2021 9:18 PM YOUTH COUNSELOR 1 mg LORazepam tablet 1 mg (ATIVAN) Given 06/10/2021 8:37 PM YOUTH COUNSELOR 1 mg 1 mg, oral, Daily at bedtime, First dose (after last modification) on Fri06/06/21 at 2100 Given 06/09/2021 9:17 PM YOUTH COUNSELOR 1 mg Given 06/08/2021 9:42 PM YOUTH COUNSELOR 1 mg melatonin tablet 5 mg 5 mg, oral, Bedtime PRN, sleep, Starting on Fri at 1548 morphine ER tablet 15 mg (MS CONTIN) Given 06/10/2021 8:37 PM YOUTH COUNSELOR 15 mg 15 mg, oral, Daily at bedtime, First dose on Fri06/06/21 at 2100, Swallow whole. Do NOT crush, chew, or split tablet. Given 06/09/2021 9:18 PM YOUTH COUNSELOR 15 mg Given 06/08/2021 9:40 PM YOUTH COUNSELOR 15 mg morphine ER tablet 60 mg (MS CONTIN) Given 06/11/2021 8:25 AM YOUTH COUNSELOR 60 mg 60 mg, oral, Every 12 hours, First dose on Fri06/06/21 at 2100, Swallow whole. Do NOT crush, chew, or split tablet. Given 06/10/2021 8:37 PM YOUTH COUNSELOR 60 mg Given 06/10/2021 10:18 AM YOUTH COUNSELOR 60 mg naloxone injection 0.4 mg (NARCAN) 0.4 mg, intravenous, As needed, reversal, Starting on Fri06/06/21 at 1430 ondansetron (PF) injection 8 mg (ZOFRAN) 8 mg, intravenous, Every 8 hours PRN, na usea, vomiting, Starting on Fri06/06/21 at 1352 ondansetron ODT disintegrating tablet 8 mg (ZOFRAN-ODT) 8 mg, oral, Every 8 hours PRN, nausea, v omiting, Starting on Fri06/06/21 at 1352 polyethylene glycol powder packet 17 g Given 06/07/2021 8:52 AM YOUTH COUNSELOR 17 g (MIRALAX) 17 g, oral, Daily, First dose on Fri06/07/21 at 0900, Dissolve in 240 mLs (8 ounces) of water prior to giving. Avoid mixing with starch-based thickened liquids. polyethylene glycol powder packet 17 g ( MIRALAX) 17 g, oral, Daily PRN, constipation, Sta rting on 06/10/21 at 0715, Dissolve in 240 mLs (8 ounces) of water prior to giving. Avoid mix ing with starch-based thickened liquids. prochlorperazine injection 10 mg (COMPAZ INE) 10 mg, intravenous, Every 6 hours PRN, n ausea, vomiting, Starting on Fri06/06/21 at 1353 prochlorperazine tablet 10 mg (COMPAZINE ) 10 mg, oral, Every 6 hours PRN, nausea, vomiting, Starting on Fri06/06/21 at 1353 simethicone chewable tablet 80 mg (MYLIC ON) 80 mg, oral, 4 times daily PRN, flatulence, Starting o n Fri06/06/21 at 1352 sodium chloride (PF) 0.9 % injection 1-1 00 mL Given 06/07/2021 10:16 AM YOUTH COUNSELOR 30 mL 1-100 mL, intravenous, Once, On Aruna 06/07/21 at 1030, For 1 dose, Imaging Protocol Orders technetium Tc 99m sulfur Given 06/11/2021 10:10 AM 14.2 millicur ies Right Hand colloid solution (Tc-99m YOUTH COUNSELOR SULFUR COLLOID) 14.2 millicurie, intravenous, Once, On 06/11/21 at 1015, For 1 dose torsemide tablet 20 mg (DEMADEX) Given 06/11/2021 8:25 AM YOUTH COUNSELOR 20 mg 20 mg, oral, Daily, First dose on 06/10/21 at 1245 Given 06/10/2021 12:58 PM YOUTH COUNSELOR 20 mg documented in this encounter Active and Recently Administered Medications Times are shown in YOUTH COUNSELOR. Scheduled Medication Order 06/09/2021 06/10/2021 06/11/2021 acetaminophen tablet 1,000 mg (TYLENOL) (COMPLETED) 1609 (Given - Provider: Elsa Stevens, R.N.) 1,000 mg, oral, Once, On 06/10/21 at 1615, For 1 dose allopurinoL tablet 300 mg (ZYLOPRIM) 0924 (Given - Pro vider: Elsa Stevens, R.N.) 1018 (Given - Provider: Elsa Stevens, R.N.) 0825 (G iven - Provider: Mariann Martin, R.N.) 300 mg, oral, Daily, First dose on Fri06/06/21 at 1415 calcium acetate(phosphat bind) capsule 1,334 mg (PHOSL O) (CANCELED) 0923 (Given - Provider: Elsa Stevens, R.N.)1457 (Not Given - Provider: Elsa Stevens R.N. - Reason: Other - Comment: pt not eating)1624 (Given - Provider: Elsa Stevens, R.N.) 1,334 mg, oral, 3 times daily with meals , First dose on Fri06/08/21 at 0800, 667 mg calcium acetate contains 169 mg of elemental calcium calcium acetate(phosphat bind) capsule 2,001 mg (PHOSLO) 1018 (Given - Provider: Elsa Stevens, R.N.)1258 (Given - Provider: Elsa Stevens R.N.)1735 (Given - Provider: Elsa Stevens R.N.) 0825 (Given - Provider: Mariann Martin, R.N.)1155 (Given - Provider: Mariann Martin, R.N.) 2,001 mg, oral, 3 times daily with meals , First dose (after last modification) on Fri06/10/21 at 0800, 667 mg calcium acetate contains 169 mg of elemental calcium enoxaparin injection 40 mg (LOVENOX) 0924 (Given - Pro vider: Elsa Stevens, R.N.) 1018 (Given - Provider: Elsa Stevens, R.N.) 0825 (Tom ivzion - Provider: Mariann Martin, R.N.) 40 mg, subcutaneous, Every 24 hours sche duled, First dose on Fri06/06/21 at 1400 folic acid tablet 400 mcg 0924 (Given - Provider: Elsa Dennison, R.N.) 1019 (Given - Provider: Elsa Steevns R.N.) 0826 (Given - Provider: Mariann Martin R.N.) 400 mcg, oral, Daily, First dose on Aruna 06/07/21 at 0900 furosemide injection 40 mg (LASIX) (COMPLETED) 1603 (Given - Provider: Chaka Talley RZahraaNZahraa) 40 mg, intravenous, Once, On Fri 1 at 1530, For 1 dose, After blood Adults: Doses less than 120 mg: IV push over 20 mg/minute. Doses 120 mg or greater: IVPB at 4 mg/minute. Peds/Neonates: Doses l ess than 120 mg over 0.5 mg/kg/minute. D oses 120 mg or greater: IVPB at 4 mg/minute. LORazepam tablet 1 mg (ATIVAN) 2116 (Given - Provider: Talia Barbosa R.N.) 2036 (Given - Provider: Patience Barbosa R.N.) 1 mg, oral, Daily at bedtime, First dose (after last modification) on Fri06/06/21 at 2100 morphine ER tablet 15 mg (MS CONTIN)(Linked Group 1) 2 118 (Given - Provider: Patience Barbosa R.N.) 2036 (Given - Provider: Patience Barbosa R.N.) 15 mg, oral, Daily at bedtime, First dos e on Fri06/06/21 at 2100, Swallow whole. Do NOT crush, chew, or split tablet. morphine ER tablet 60 mg (MS CONTIN)(Linked Group 1) 0 923 (Given - Provider: Elsa Stevens R.N.)2116 (Given - Provider: Patience Barbosa R.N.) 1018 (Given - Provider: Elsa Stevens R.N.)2036 (Given - Provider: Patience Barbosa R.N.) 0825 (Given - Provider: Nirmal Thakur NZahraa) 60 mg, oral, Every 12 hours, First dose on Fri06/06/21 at 2100, Swallow whole. Do NOT crush, chew, or split tablet. technetium Tc 99m sulfur colloid solution (Tc-99m SULFUR COLLOID ) (COMPLETED) 1010 (Given - Provider: Ritesh JamesonN.MZahraaTZahraa) 14.2 millicurie, intravenous, Once, On Fri06/11/21 at 1015, For 1 dose torsemide tablet 20 mg (DEMADEX) 1258 (Tom montero - Provider: Elsa Stevens R.N.) 0825 (Given - Provider: Nirmal Thakur) 20 mg, oral, Daily, First dose on 06/10/21 at 1245 Continuous Medication Order 06/09/2021 06/10/2021 06/11/2021 furosemide 1 mg/mL in NaCl 0.9% 100 mL infusion (LASIX ) (CANCELED) 0819 (New Bag - Provider: Elsa Stevens R.N.)1609 (Rate/Dose Change - Provider: Elsa Stevens R.N.)1700 (Rate/Dose Verify - Provider: Elsa Stevens R.N.) 1258 (Stopped - Provider: Elsa Stevens R.N.) 2.5 mg/hr (2.5 mL/hr), intravenous, Cont inuous, Starting on Aruna 06/07/21 at 1530, Do NOT refrigerate., Type: Do Not Titrate PRN Medication Order 06/09/2021 06/10/2021 06/11/2021 calcium carbonate chewable tablet 400 mg of calcium (TUMS) 1646 (Given - Provider: Elsa Stevens R.N.) 400 mg of calcium, oral, 3 times daily P RN, indigestion, heartburn, Starting on Fri06/06/21 at 1352, Doses listed are in mg of elemental calcium. Take with food. 500 mg calcium carbonate contains 200 mg of elemental calcium. LORazepam tablet 1 mg (ATIVAN) 2117 (Given - Provider: Talia Barbosa R.N.) 2037 (Given - Provider: Patience Barbosa R.N.) 0946 (Given - Provider: Mariann Martin R.N.) 1 mg, oral, 3 times daily PRN, anxiety, Starting on Fri06/06/21 at 2038 melatonin tablet 5 mg 5 mg, oral, Bedtime PRN, sleep, Starting on Fri06/06/21 at 1548 naloxone injection 0.4 mg (NARCAN) 0.4 mg, intravenous, As needed, reversal, Starting on Fri at 1430 ondansetron (PF) injection 8 mg (ZOFRAN)(Linked Group 2) 8 mg, intravenous, Every 8 hours PRN, na usea, vomiting, Starting on Fri06/06/21 at 1352 ondansetron ODT disintegrating tablet 8 mg (ZOFRAN-ODT)(Linked G roup 2) 8 mg, oral, Every 8 hours PRN, nausea, v omiting, Starting on Fri06/06/21 at 1352 oxyCODONE IR tablet 10 mg (ROXICODONE) 10 mg, oral, Every 4 hours PRN, severe p ain or score 7-10 of 10, Starting on Fri06/06/21 at 1349 polyethylene glycol powder packet 17 g (MIRALAX) 17 g, oral, Daily PRN, constipation, Sta rting on Fri06/10/21 at 0715, Dissolve in 240 mLs (8 ounces) of water prior to giving. Avoid mixing with starch-based thickened liquids. prochlorperazine injection 10 mg (COMPAZINE)(Linked Group 3) 10 mg, intravenous, Every 6 hours PRN, n ausea, vomiting, Starting on Fri06/06/21 at 1353 prochlorperazine tablet 10 mg (COMPAZINE)(Linked Group 3) 10 mg, oral, Every 6 hours PRN, nausea, vomiting, Starting on Fri06/06/21 at 1353 sennosides-docusate sodium 8.6-50 mg per tablet 2 tablet (SENOKO T-S) 2 tablet, oral, 2 times daily PRN, const ipation, Starting on Fri06/06/21 at 1349 simethicone chewable tablet 80 mg (MYLICON) 80 mg, oral, 4 times daily PRN, flatulence, Starting on 05/15 at 1352 Linked Groups Order Group 1: morphine ER tablet 60 mg (MS CONTIN)Jump to med 60 mg, oral, Every 12 hours, First dose on Fri06/06/21 at 2100
Swallow whole. Do NOT crush, chew, or split tablet.
And morphine ER tablet 15 mg (MS CONTIN)Jump to med 15 mg, oral, Daily at bedtime, First dos e on Fri06/06/21 at 2100
Swallow whole. Do NOT crush, chew, or split tablet.
Group 2: ondansetron ODT disintegrating tablet 8 mg (ZOFRAN-ODT)Jump to med 8 mg, oral, Every 8 hours PRN, nausea, v omiting, Starting on Fri06/06/21 at 1352 Or ondansetron (PF) injection 8 mg (ZOFRAN)Jump to med 8 mg, intravenous, Every 8 hours PRN, na usea, vomiting, Starting on Fri06/06/21 at 1352 Group 3: prochlorperazine injection 10 mg (COMPAZINE)Jump to med 10 mg, intravenous, Every 6 hours PRN, n ausea, vomiting, Starting on Fri06/06/21 at 1353 Or prochlorperazine tablet 10 mg (COMPAZINE)Jump to med 10 mg, oral, Every 6 hours PRN, nausea, vomiting, Starting on Fri06/06/21 at 1353 documented in this encounter Additional Health Concerns Infection Onset Date Last Indicated Resolved Time COVID19 Pending 06/06/2021 06/06/2021 06/06/2021 10:01 PM YOUTH COUNSELOR documented as of this encounter Care Teams Ink Technician Relationship Specialty Start Date End Date None Reported, Pcp PCP - General Family Medicine 02/16/21 documented as of this encounter
--- OUTSIDE RECORDS SUMMARY | 2022-05-02 12:07 | XMS_ITS | Encounter Summary ---
:1970 Author Organization [facility] Address [address] [place] [address] Care Team Providers Name Role Phone None Reported, Pcp Primary Care Provider Unavailable Encounter Details Date Type Department Care Team Description 06/06/2021 Anesthesia Event [facility] Michelle Arellano, [address] [place] [address] [address] [place] [id number] Anesthesia Record Procedure Summary Procedure Name Responsible Anesthesia Start Anesthesia Stop Anesthesiologist Time Time BEDSIDE ANESTHESIA Michelle Cuellar, FORM BUILDER, PACKAGING LINE ATTENDANT 06/06/21 1545 1618 SCHEDULING Events Date Time Event Comment 06/06/2021 1545 An Start Machine/Equipmen t Checked Infection Precautions Foll owed Procedure/Site Verified NPO Sta tus Verified Supine Standard ASA Mon itors Applied 1547 Turnover to Proceduralist 1548 Anesthesia Time Out 1549 Proc Start 1558 Proc Fin 1612 Turnover to ANE Staff 1612 an stop data 1618 An End I completed my h andoff to the receiving staff during [facility] we 1. Identified the patient 2. Ident ified the responsible provider 3. Revi ewed the pertinent medical history 4. Discu ssed the surgical course 5. Reviewed intra-o p anesthesia management and issues during an esthesia 6. Set expectations for post-procedure period 7. Allowed opportun ity for questions and acknowledgement of understanding. Name Total fentaNYL PF injection 50 mcg/mL 50 mcg lidocaine 2% (mg) injection 60 mg propofol 10 mg/mL injection 110 mg NaCl 0.9 % free drip 300 mL Agents No agents on file. Blood No blood administrations on file. Lines, Drains, and Airways Type Details Placement Removal Peripheral IV Placement Date: 06/06/21; 06/06/21 1535 by 06/11 1630 by Placement Time: 153; Castro Stephenson Dah l, Clemencia Herndon, R.N. Catheter Size: 22 G; R.N. Orientation: Right; Location: Hand; Site Prep: Chlorhexidine (Preferred); Technique: Anatomical landmarks (VCB); Inserted by: RPT; Insertion Attempts: 1; Removal Date: 06/11/21; Removal Time: 163; Removal Reason: Patient discharged documented in this encounter Social History Tobacco [...] at Date Recorded Female 07/24/2021 11:03 AM UNARMED SECURITY GUARD documented as of this encounter OR Notes Anesthesia Postprocedure Evaluation - Michelle Cuellar APRN, CRNA - 06/06/2021 4:19 PM CST Patient: Jennifer Dobbs Procedure Summary Date: 06/06/21 Room / Location: [facility] Anesthesia Start: 1545 Anesthesia Stop: Procedure: BEDSIDE ANESTHESIA SCHEDULING Diagnosis: Scheduled Providers: Responsible Provider: Michelle Cuellar APRN, CRNA Anesthesia Type: MAC ASA Status: 3 Anesthesia Type: MAC Last vitals Vitals Value Taken Time BP 106/63 06/06/21 1610 Temp 36.6 ??C 06/06/21 1614 Pulse 117 06/06/21 1614 Resp 24 06/06/21 1610 SpO2 95 % 06/06/21 1614 Vitals shown include unvalidated device data. Please reference Vitals flowsheet for most recent vital signs. Anesthesia Post Evaluation Patient Disposition: general care unit Cardiovascular status: hemodynamics (HR & BP) acceptable Respiratory status: patent airway with spontaneous effort Temperature: normothermic Oxygen requirements: room air Level of consciousness: awake Pain score: pain adequately controlled and/or at baseline Post Op nausea/vomiting: none Hydration status: euvolemic MED SECURITY GUARD Anesthesia Preprocedure Evaluation - Michelle Cuellar APRN, CRNA - 06/06/2021 2:01 PM CST Preprocedure Anesthesia & H&P Assessment Procedure Summary Date/Time: 06/06/21 1500 Procedure: BEDSIDE ANESTHESIA SCHEDULING Location: [facility] Pertinent components of the patient's history including current problem list, medical history, surgical history, family history, social history, medications and allergies were reviewed. Present illnessand pre-op diagnosis were confirmed. The planned surgery / procedure was verified with the patient /legal guardian. The patient's general health condition remains unchanged RELEVANT COMORBID CONDITIONS GENETICS (+) Fluid Overload Unspecified (+) Hyperkalemia HEME (+) Pancytopenia (HCC) OBJECTIVE PHYSICAL EXAMINATION Airway (HEENT) Mallampati: II TM Distance: >3 FB Neck ROM: Full Mouth Opening: >3 cm Upper Lip Bite Test Class: I Facies (pediatrics): normal Cardiovascular Rhythm: Regular Functional Capacity: <4 METS Pulmonary Pulmonary Assessment: Clear General / Constitutional Normal Neurological Normal Dental Normal Abdomen Normal Musculoskeletal Normal Skin Normal ASSESSMENT / PLAN ANESTHESIA PLAN ASA: 3 Anesthesia Plan: MAC Plan for monitored anesthesia care with standard ASA monitors; PIV x1, supplemental oxygen via nasalcannula, sedation with fentanyl and propofol. Patient seen and allergies reviewed, anesthesia plan and risks discussed directly with patient /legal guardian or through an manager construction. The use of blood products not discussed Approval to Proceed: approved for anesthesia MED SECURITY GUARD documented in 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 Administered Medications Inactive Administered Medications - up to 3 most recent administrations Medication Order MAR Action Action Date Dose Rate Site fentaNYL injection (SUBLIMAZE) Given 06/06/2021 3:50 PM UNARMED SECURITY GUARD 25 mcg intravenous, As needed, Starting on Fri06/06/21 at 1547, Anesthesia Intra-op Given 06/06/2021 3:47 PM UNARMED SECURITY GUARD 25 mcg lidocaine (PF) (cardiac) injection Given 06/06/2021 3:50 PM UNARMED SECURITY GUARD 60 mg intravenous, As needed, Starting on Fri06/06/21 at 1550, Anesthesia Intra-op NaCl 0.9% infusion New Bag 06/06/2021 3:45 PM UNARMED SECURITY GUARD intravenous, Continuous Infusion: Per Instructions PRN, Starting on Fri06/06/21 at 1545, Anesthesia Intra-op propofoL injection (DIPRIVAN) Given 06/06/2021 3:58 PM UNARMED SECURITY GUARD 20 mg intravenous, As needed, Starting on Fri06/06/21 at 1550, Anesthesia Intra-op Given 06/06/2021 3:57 PM UNARMED SECURITY GUARD 20 mg Given 06/06/2021 3:55 PM UNARMED SECURITY GUARD 20 mg documented in this encounter Additional Health Concerns Infection Onset Date Last Indicated Resolved Time COVID19 Pending 06/06/2021 06/06/2021 06/06/2021 10:01 PM UNARMED SECURITY GUARD documented as of this encounter Care Teams Major Assembler Relationship Specialty Start Date End Date None Reported, Pcp PCP - General Family Medicine 02/16/21 documented as of this encounter
--- OUTSIDE RECORDS SUMMARY | 2022-05-02 12:08 | XMS_ITS | Encounter Summary ---
:1970 Author Organization [facility] Address [address] [place] [address] Care Team Providers Name Role Phone Unavailable Primary Care Provider Unavailable Encounter Details Date Type Department Care Team Description 09/13/2020 Hospital Encounter Department of Gangat, Myelofib rosis ([facility] [address] [place] [id number] [place], [place] [phone] (Work) [phone] Social History Tobacco Use Types Packs/Day Years Used Date Smoking Tobacco: Former Smokeless Tobacco: Never Sex Assigned at Date Recorded Female 07/24/2021 11:03 AM TOP WADDY documented as of this encounter Medications at Time of Discharge Medication Sig Dispensed Refills Start Date End Date folic acid 1 mg tablet Take by mouth daily. 0 LORazepam (ATIVAN) 0.5 mg Take 1-2 mg [...] 344-1,050-1,000 mg needed (upset tablet, effervescent stomach). allopurinoL (ZYLOPRIM) Take 1 tablet (300 30 tablet 3 06/0610/27/2020 300 mg tablet mg total) by mouth daily. ibuprofen (ADVIL,MOTRIN) Take 400 mg by mouth 0 06/11/2021 200 mg tablet as needed for pain. morphine (MSIR) 15 mg Take 15 mg by mouth 0 03/11/2022 tablet at bedtime. oxyCODONE (OXY-IR) 5 mg Take 2 capsules by 0 02/1203/18/2022 immediate release capsule mouth every 4 (four) hours as needed. documented as of this encounter Plan of Treatment Not on filedocumented as of this encounter Procedures Procedure Name Priority Date/Time Associated Diagnosis Comme nts SPSMA RESULT Routine 09/13/2020 8:10 Myelofibrosis (HCC) Resul ts for this AM TOP WADDY procedure are i n the results section. CBC WITH Routine 09/13/2020 8:10 Myelofibrosis (HCC) Resul ts for this DIFFERENTIAL, B AM TOP WADDY procedure ar e in the results section. TYPE AND SCREEN Routine 09/13/2020 8:10 Myelofibrosis (HCC) Re sults for this AM TOP WADDY procedure are i n the results section. COMPREHENSIVE Routine 09/13/2020 8:10 Myelofibrosis (HCC) Resu lts for this METABOLIC PANEL, S/P AM TOP WADDY procedu re are in the results section. documented in this encounter Results Type and Screen (with reflex Antibody ID) (09/13/2020 8:10 AM TOP WADDY) [facility] [place] gist Method Time Signature ABORh A Pos Not 09/13/2020 ETRM applicable 9:29 AM TOP WADDY Antibody Negative Negative 09/13/2020 ETRM Screen 9:29 AM TOP WADDY Type & Screen 09/16/2020 09/13/2020 ETRM Expiration 23:59 9:29 AM TOP WADDY Testing [place] DEFAULT 09/13/2020 ETRM Location 8:46 AM TOP WADDY Specimen Anatomical Collection Method Collection Time Receive d Time (Source) Location / / Volume Laterality Blood (Blood, 09/13/2020 8:10 AM 09/14/19 21 8:46 Venous) TOP WADDY AM TOP WADDY Janusz Ardon LAB BLOOD BANK TEST ORDERABL ES Performing Organization Address City/State/ZIP Code Phon e Number [facility] - [address] [place], [place] [address] [facility] [place] [address] Laboratories-[address] (ABNORMAL) Morphology Evaluation (Special Smear) (09/13/2020 8:10 AM TOP WADDY) Patholo gist Method Time Signature Neutrophilic Segs 85 (H) 50 - 75 % 09/13/2020 [facility] and Bands 10:28 AM TOP WADDY Lymphocytes 6 (L) 18 - 42 % 09/13/2020 DHPM 10:28 AM TOP WADDY Monocytes 1 (L) 2 - 11 % 09/13/2020 DHPM 10:28 AM TOP WADDY Eosinophils 1 1 - 3 % 09/13/2020 PM 10:28 AM TOP WADDY Basophils 1 0 - 2 % 09/13/2020 DHPM 10:28 AM TOP WADDY Metamyelocytes 1 (H) <1 % 09/13/2020 DHPM 10:28 AM TOP WADDY Myelocytes 5 (H) <0.5 % 09/13/2020 PM 10:28 AM TOP WADDY Nucleated RBC 6 /100 WBC 09/13/2020 PM 10:28 AM TOP WADDY Manual Absolute 2.64 1.56 - 09/13/2020 [facility] Neutrophil Count 6.45 10:28 AM TOP WADDY x10(9)/L Comment: ----ADDITIONAL INFORMATION---- The manual absolute neutrophil count is derived from a manual differential count and therefore is not exactly comparable to the automated absolute halie trophil count. Interpretation Moderate dacrocytes are present. 10:28 AM TOP WADDY [facility] Reviewed by: Liz 09/13/2020 10:28 AM TOP WADDY [facility] Specimen Anatomical Collection Method Collection Time Receive d Time (Source) Location / / Volume Laterality Blood (Blood, 09/13/2020 8:10 AM 09/14/19 21 8:37 Venous) TOP WADDY AM TOP WADDY Janusz Ardon LAB BLOOD ADD-ON Performing Organization Address City/State/ZIP Code Phon e Number [facility] - [address] [place] [address] [address] [place] [address] Laboratories-[address] (ABNORMAL) Comprehensive Metabolic Panel (09/13/2020 8:10 AM TOP WADDY) P athologist Signature Potassium, S 4.8 3.6 - 5.2 09/13/2020 DTL mmol/L 9:10 AM TOP WADDY Sodium, S 141 135 - 145 09/13/2020 DTL mmol/L 9:10 AM TOP WADDY Chloride, S 106 98 - 107 09/13/2020 DTL mmol/L 9:10 AM TOP WADDY Bicarbonate, S 24 22 - 29 09/13/2020 DTL mmol/L 9:10 AM TOP WADDY Anion Gap 11 7 - 15 09/13/2020 DTL 9:10 AM TOP WADDY BUN (Blood Urea 24 (H) 6 - 21 09/13/2020 DTL Nitrogen), S mg/dL 9:10 AM TOP WADDY Creatinine 0.98 0.59 - 09/13/2020 DTL 1.04 mg/dL 9:10 AM TOP WADDY eGFR-Non 67 >=60 09/13/2020 DTL Black/ mL/min/BSA 9:10 AM TOP WADDY [place] Comment: ----ADDITIONAL INFORMATION---- Estimated GFR calculated using the 2009 CKD_EPI creatinine equation. eGFR-Black/ 77 >=60 mL/min/BSA 2020 9:10 AM TOP WADDY DTL Comment: ----ADDITIONAL INFORMATION---- Estimated GFR calculated using the 2009 CKD_EPI creatinine equation. Calcium, Total, S 8.6 8.6 - 10.0 mg/dL 09/13/2020 9:10 AM TOP WADDY DTL Glucose, S 111 70 - 140 mg/dL 09/13/2020 9:10 AM TOP WADDY D TL Protein, Total, S 6.1 (L) 6.3 - 7.9 g/dL 09/13/2020 9:10 A M TOP WADDY DTL Albumin, S 4.2 3.5 - 5.0 g/dL 09/13/2020 9:10 AM TOP WADDY D TL Aspartate Aminotransferase 28 8 - 43 U/L 09/13/2020 9 :10 AM TOP WADDY DTL (AST), S Alkaline Phosphatase, S 42 35 - 104 U/L 09/13/2020 9: 10 AM TOP WADDY DTL Alanine Aminotransferase 16 7 - 45 U/L 09/13/2020 9:1 0 AM TOP WADDY DTL (ALT), S Bilirubin, Total, S 0.8 <=1.2 mg/dL 09/13/2020 9:10 AM TOP WADDY DTL Specimen Anatomical Collection Method Collection Time Receive d Time (Source) Location / / Volume Laterality Blood (Blood, 09/13/2020 8:10 AM 09/14/19 21 8:34 Venous) TOP WADDY AM TOP WADDY Janusz AlexandraSZahraa LAB BLOOD ADD-ON Performing Organization Address City/State/ZIP Code Phon e Number [facility] - [address] [place] [phone] [facility] [place] [address] Laboratories-[facility] [address] [facility] (ABNORMAL) CBC with Differential, Blood (09/13/2020 8:10 AM TOP WADDY) [facility] gist Method Time Signature Hemoglobin 6.5 (L) 11.6 - 09/13/2020 DTL 15.0 g/dL 9:02 AM TOP WADDY Hematocrit 22.1 (L) 35.5 - 09/13/2020 DTL 44.9 % 9:02 AM TOP WADDY Erythrocytes 2.35 (L) 3.92 - 09/13/2020 DTL 5.13 9:02 AM TOP WADDY x10(12)/L MCV 94.0 78.2 - 09/13/2020 DTL 97.9 fL 9:02 AM TOP WADDY RBC Distrib Width 28.7 (H) 12.2 - 09/13/2020 DTL 16.1 % 10:28 AM TOP WADDY Platelet Count 80 (L) 157 - 371 09/13/2020 DTL x10(9)/L 10:28 AM TOP WADDY Comment: Results confirmed by smear, no clumping or interference seen. Leukocytes 3.1 (L) 3.4 - 9.6 x10(9)/L 09/13/2020 10:28 AM TOP WADDY DTL Comment: Results confirmed by smear. Neutrophils SeeComment 1.56 - 6.45 x10(9)/L 09/13/2020 10:28 AM TOP WADDY DTL Comment: Auto-diff results not valid. Se e manual differential. Specimen Anatomical Collection Method Collection Time Receive d Time (Source) Location / / Volume Laterality Blood (Blood, 09/13/2020 8:10 AM 09/14/19 21 8:37 Venous) TOP WADDY AM TOP WADDY Janusz AlexandraSZahraa LAB BLOOD ADD-ON Performing Organization Address City/State/ZIP Code Phon e Number [facility] - [address] [place], [place] [address] [facility] [place] [address] Laboratories-[facility] [address] documented in this encounter Visit Diagnoses Diagnosis Myelofibrosis (HCC) documented in this encounter
--- OUTSIDE RECORDS SUMMARY | 2022-05-02 12:08 | XMS_ITS | Encounter Summary ---
:1970 Author Organization [facility] Address [address] [place] [address] Care Team Providers Name Role Phone Unavailable Primary Care Provider Unavailable Reason for Referral Specialty Diagnoses / Procedures Referred By Contact Refer red To Contact Janusz Govea M.B .B.S. [facility] [address] [place] [address] [phone] Referral ID Status Reason Start Date Expiration Date Visits Requ ested Visits Authorized ITORY SALES MANAGER MEDICAL Encounter Details Date Type Department Care Team Description 08/10/2020 Clinical Communication Division of Hematology Janusz Govea, in [facility] MurphyB.S. [address] [place] [address] [place] [phone] Social History Tobacco Use Types Packs/Day Years Used Date Smoking Tobacco: Former Smokeless Tobacco: Never Sex Assigned at Date Recorded Female 07/24/2021 11:03 AM TERRITORY SALES MANAGER MEDICAL documented as of this encounter Miscellaneous Notes Telephone Encounter - Mary Ann Shaver R.N. - 08/10/2020 3:34 PM TERRITORY SALES MANAGER MEDICAL I went ahead and set her up with an appt. Tomorrow at [facility] for one unit of blood at 3:15 pm. Bre will cancel if not needed. I noticed no labs were ordered, so I ordered cbc and type and screen for tomorrow also. Cintia Carr ITORY SALES MANAGER MEDICAL documented in this encounter Plan of Treatment Scheduled Referrals Name Type Priority Associated Diagnoses Order S [facility] Blood Administration Outpatient Routine Myelofibrosis (HCC) Expected: in Infusion Therapy; Referral [id number], Expires: 08/10/2023 documented as of this encounter Results (ABNORMAL) CBC with Differential, Blood (08/11/2020 8:25 AM TERRITORY SALES MANAGER MEDICAL) [facility] gist Method Time Signature Hemoglobin 6.9 (L) 11.6 - 08/11/2020 DTL 15.0 g/dL 8:43 AM TERRITORY SALES MANAGER MEDICAL Hematocrit 23.0 (L) 35.5 - 08/11/2020 DTL 44.9 % 8:43 AM TERRITORY SALES MANAGER MEDICAL Erythrocytes 2.52 (L) 3.92 - 08/11/2020 DTL 5.13 8:43 AM TERRITORY SALES MANAGER MEDICAL x10(12)/L MCV 91.3 78.2 - 08/11/2020 DTL 97.9 fL 8:43 AM TERRITORY SALES MANAGER MEDICAL RBC Distrib Width 25.0 (H) 12.2 - 08/11/2020 DTL 16.1 % 8:43 AM TERRITORY SALES MANAGER MEDICAL Platelet Count 96 (L) 157 - 371 08/11/2020 DTL x10(9)/L 9:57 AM TERRITORY SALES MANAGER MEDICAL Comment: Results confirmed by smear, no clumping or interference seen. Leukocytes 2.7 (L) 3.4 - 9.6 x10(9)/L 08/11/2020 9:[address] DTL Comment: Results confirmed by smear. Neutrophils SeeComment 1.56 - 6.45 x10(9)/L 08/11/2020 9:57 AM TERRITORY SALES MANAGER MEDICAL DTL Comment: Auto-diff results not valid. Se e manual differential. Specimen Anatomical Collection Method Collection Time Receive d Time (Source) Location / / Volume Laterality Blood (Blood, 08/11/2020 8:25 AM 08/11/19 21 8:37 Venous) TERRITORY SALES MANAGER MEDICAL AM TERRITORY SALES MANAGER MEDICAL Janusz Ardon LAB BLOOD ADD-ON Performing Organization Address City/State/ZIP Code Phon e Number [facility] - [address] [place], [place] [address] [facility] [address] Laboratories-[facility] [address] Type and Screen (with reflex Antibody ID) (08/11/2020 8:24 AM TERRITORY SALES MANAGER MEDICAL) [facility] gist Method Time Signature ABORh A Pos Not 08/11/2020 ETRM applicable 9:20 AM TERRITORY SALES MANAGER MEDICAL Antibody Negative Negative 08/11/2020 ETRM Screen 9:34 AM TERRITORY SALES MANAGER MEDICAL Type & Screen 08/14/2020 08/11/2020 ETRM Expiration 23:59 9:20 AM TERRITORY SALES MANAGER MEDICAL Testing Deidra DEFAULT 08/11/2020 ETRM Location 8:31 AM TERRITORY SALES MANAGER MEDICAL Specimen Anatomical Collection Method Collection Time Receive d Time (Source) Location / / Volume Laterality Blood (Blood, 08/11/2020 8:24 AM 08/11/19 8:31 Venous) TERRITORY SALES MANAGER MEDICAL AM TERRITORY SALES MANAGER MEDICAL Janusz Ardon LAB BLOOD BANK TEST ORDERABL ES Performing Organization Address City/State/ZIP Code Phon e Number [facility] - [address] [place], [place] [address] [facility] [place] [address] Laboratories-[facility] [address] documented in this encounter Visit Diagnoses Diagnosis Myelofibrosis (HCC) - Primary documented in this encounter
--- OUTSIDE RECORDS SUMMARY | 2022-05-02 12:08 | XMS_ITS | Encounter Summary ---
:[address] [facility] Address [address] [place] [address] Care Team Providers Name Role Phone Unavailable Primary Care Provider Unavailable Reason for Visit Reason Comments Outpatient Infusion RBCs Encounter Details Date Type Department Care Team Description 08/18/2020 Infusion Department of Infusion Janusz Govea [facility]) [facility] [address] [phone] Social History Tobacco Use Types Packs/Day Years Used Date Smoking Tobacco: Former Smokeless Tobacco: Never Sex Assigned at Date Recorded Female 07/24/2021 11:03 AM MATCHBOOK MAKER documented as of this encounter Last Filed Vital Signs Vital Sign Reading Time Taken Comments Blood Pressure 126/70 08/18/2020 12:49 PM MATCHBOOK MAKER Pulse 72 08/18/2020 12:49 PM MATCHBOOK MAKER Temperature 36.6 ??C (97.9 ??F) 08/18/2020 12:49 PM MATCHBOOK MAKER Respiratory Rate 18 08/18/2020 12:49 PM MATCHBOOK MAKER Oxygen Saturation - - Inhaled Oxygen Concentration - - Weight - - Height - - Body Mass Index - - documented in this encounter Plan of Treatment Pending Results Name Type Priority Associated Diagnoses Date/Ti me Prepare Red Blood Blood Bank Routine Myelofibrosis (HCC) 11/2020 8:18 AM MATCHBOOK MAKER Cells, 1 Units documented as of this encounter Procedures Procedure Name Priority Date/Time Associated Diagnosis Comme nts TRANSFUSE RED BLOOD Routine 08/18/2020 10:49 AM MATCHBOOK MAKER Myelofibro sis (HCC) CELLS PREPARE RED BLOOD CELLS Routine 08/18/2020 8:18 AM MATCHBOOK MAKER Myelofi brosis (HCC) documented in this encounter Results Transfuse Red Blood Cells : (08/18/2020 12:58 PM MATCHBOOK MAKER) Naseema Gangat M.B.B.S. BLOOD TRANSFUSION ORDERABLES Transfuse Red Blood Cells : , 1 Units (08/18/2020 12:58 PM MATCHBOOK MAKER) Nasjonathan Ganwing M.B.B.S. BLOOD TRANSFUSION ORDERABLES documented in this encounter Visit Diagnoses Diagnosis Myelofibrosis (HCC) - Primary documented in this encounter Administered Medications Inactive Administered Medications - up to 3 most recent administrations Medication Order MAR Action Action Date Dose Rate Site NaCl 0.9% infusion New Bag 08/18/2020 12:29 PM 180 mL/hr 180 mL/hr 20-500 mL/hr, intravenous, MATCHBOOK MAKER As needed, Between Unit of Blood Products, Starting on Fri08/18/20 at 1003, Infuse at the same rate as the blood infusion until tubing cleared. Nurse may reduce rate to 20 mL/hour or as otherwise directed until next blood infusion arrives then discontinue when infusion complete. sodium chloride 0.9 % injection 3 mL Given 08/18/2020 12:48 PM MATCHBOOK MAKER 3 mL 3 mL, intra-catheter, As needed, line care, Starting on Fri08/18/20 at 1003, Prior to and following infusion and between multiple consecutive infusions. Given 08/18/2020 10:37 AM MATCHBOOK MAKER 3 mL documented in this encounter
--- OUTSIDE RECORDS SUMMARY | 2022-05-02 12:08 | XMS_ITS | Encounter Summary ---
:1970 Author Organization [facility] Address [address] [place] [address] Care Team Providers Name Role Phone Unavailable Primary Care Provider Unavailable Encounter Details Date Type Department Care Team Description 08/08/2020 Orders Only Division of Krzysztof Pearce Myelofibr osis (HCC) Hematology in (Primary Dx) [place], [place] [phone] [facility] [facility] ([place]) [place] [address] Social History Tobacco Use Types Packs/Day Years Used Date Smoking Tobacco: Former Smokeless Tobacco: Never Sex Assigned at Date Recorded Female 07/24/2021 11:03 AM SENIOR STATISTICIAN documented as of 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
--- OUTSIDE RECORDS SUMMARY | 2022-05-02 12:08 | XMS_ITS | Encounter Summary ---
:1970 Author Organization [facility] Address [address] [place] [address] Care Team Providers Name Role Phone None Reported, Pcp Primary Care Provider Unavailable Reason for Visit Outpatient (Routine) - Closed Specialty Diagnoses / Procedures Referred By Contact Refer red To Contact Hematology [facility] navjot M.B.B.S. [address] [place] [phone] Referral ID Status Reason Start Date Expiration Date Visits Requ ested Visits Authorized [id number] Closed 02/12/2021 02/12/2022 1 1 Encounter Details Date Type Department Care Team Description 02/16/2021 Office Visit Division of Hematology [facility], Myelo fibrosis Primary in [facility], (HCC) (Primary Dx) [place] M.B.B.S. 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 - 02/16/2021 8:00 AM CDT SUBJECTIVE CHIEF COMPLAINT/REASON FOR VISIT Primary myelofibrosis. HISTORY OF PRESENT ILLNESS Mrs. 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 Main issues have been symptomatic splenomegaly for which she requires narcotics and transfusion- dependent anemia. Prior treatments have included alisertib clinical trial and recently the 9-ING study. She received around 3 cycles of therapy, came off study on 08/03/2020. Since then, she has not been on any specific treatment for her primary myelofibrosis. She comes in for a clinic visit but is in extreme pain on the left side of her abdomen from her spleen. She took 3 or 4 pills of oxycodone 5 mg this morning which has not helped with the pain. Appetiteis good, but because of the pain she is experiencing nausea and vomiting. This has been progressive over the last week or week and a half. She has been requiring RBC transfusions. Today, her hemoglobinis 6.8 g/dL. Last transfusion was about a week and a half ago. She was also started on Aranesp and has taken 2 doses thus far. Given the severity of the pain, I am concerned about splenic rupture or infarction. Hence, I called the EMS services to take her to the emergency room. OBJECTIVE PHYSICAL EXAMINATION Vital Signs: Temperature is 97.5, pulse 108, blood pressure 109/74. General: In severe distress from the pain. Abdomen : Feels a mass in the left upper quadrant. DIAGNOSTICS Hemoglobin is at 6.8 which is at her baseline. Chemistries are within normal limits. ASSESSMENT / PLAN #1 Severe left-sided abdominal pain with history of splenomegaly, question of splenic infarction or rupture She requires emergent evaluation in the emergency room which will include CT imaging and IV pain medicines. After her evaluation, it would be reasonable to admit her to one of the Hematology services for further evaluation and management. 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 Last treatment was the 9- ING clinical trial drug on 08/03/2020. She has previously received Jakafi which led to transfusion dependence and alisertib as part of a clinical trial with little benefit. #3 Transfusion-dependent anemia She is transfused every week to week and a half. #4 Hyperuricemia Addendum: I spoke to her on 02/19, recommend trial of jakafi 10 mg twice daily for 4 to 6 weeks. If no improvement in spleen size, consider splenectomy. Murphy ForemanB.S. CT CT Job ID: [id number] documented in this encounter Plan of Treatment Not on filedocumented as of this encounter Visit Diagnoses Diagnosis Myelofibrosis Primary (HCC) - Primary documented in this encounter Care Teams Ship Loader Relationship Specialty Start Date End Date None Reported, Pcp PCP - General Family Medicine 02/16/21 documented as of this encounter
--- OUTSIDE RECORDS SUMMARY | 2022-05-02 12:08 | XMS_ITS | Encounter Summary ---
:1970 Author Organization [facility] Address [address] [place] [address] Care Team Providers Name Role Phone Unavailable Primary Care Provider Unavailable Encounter Details Date Type Department Care Team Description 12/19/2020 Orders Only Division of Hematology in [place], [place] M.B.B.S. 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
--- OUTSIDE RECORDS SUMMARY | 2022-05-02 12:08 | XMS_ITS | Encounter Summary ---
:1970 Author Organization [facility] Address [address] [place] [address] Care Team Providers Name Role Phone Unavailable Primary Care Provider Unavailable Reason for Visit Reason Comments Labs Only Encounter Details Date Type Department Care Team Description 08/18/2020 Clinical Communication Division of Hematology Janusz Govea, Labs Only in [facility] milton ArringtonB.S. 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 - 08/18/2020 9:12 AM CST Left a message for Jennifer to call me back. Hgb 7.3. she can forego RBCs this morning if she would like. LE APPLICATION TESTER documented in 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
--- OUTSIDE RECORDS SUMMARY | 2022-05-02 12:08 | XMS_ITS | Encounter Summary ---
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
--- OUTSIDE RECORDS SUMMARY | 2022-05-02 12:08 | XMS_ITS | Encounter Summary ---
:1970 Author Organization [facility] Address [address] [place] [address] Care Team Providers Name Role Phone Unavailable Primary Care Provider Unavailable Encounter Details Date Type Department Care Team Description 08/18/2020 Hospital Encounter Department of Gangat, Myelofib rosis ([facility]) Laboratory Medicine [facility], and [facility] in [address] [place] [phone] [place], [place] [phone] (Work) [phone] Social History Tobacco Use Types Packs/Day Years Used Date Smoking Tobacco: Former Smokeless Tobacco: Never Sex Assigned at Date Recorded 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 CBC WITH Routine 08/18/2020 8:18 AM Myelofibrosis (HCC) Re sults for this DIFFERENTIAL, B ASSEMBLER DRY CELL AND BATTERY procedure ar e in the results section. TYPE AND SCREEN Routine 08/18/2020 8:18 AM Myelofibrosis (HCC) Results for this ASSEMBLER DRY CELL AND BATTERY procedure are i n the results section. documented in this encounter Results (ABNORMAL) Morphology Evaluation (Special Smear) (08/18/2020 8:18 AM ASSEMBLER DRY CELL AND BATTERY) [facility] gist Method Time Signature Neutrophilic Segs 74 50 - 75 % 08/18/2020 DHPM and Bands 9:33 AM ASSEMBLER DRY CELL AND BATTERY Lymphocytes 6 (L) 18 - 42 % 08/18/2020 DHPM 9:33 AM ASSEMBLER DRY CELL AND BATTERY Monocytes 7 2 - 11 % 08/18/2020 DHPM 9:33 AM ASSEMBLER DRY CELL AND BATTERY Eosinophils 3 1 - 3 % 08/18/2020 DHPM 9:33 AM ASSEMBLER DRY CELL AND BATTERY Metamyelocytes 2 (H) <1 % 08/18/2020 DHPM 9:33 AM ASSEMBLER DRY CELL AND BATTERY Myelocytes 8 (H) <0.5 % 08/18/2020 DHPM 9:33 AM ASSEMBLER DRY CELL AND BATTERY Nucleated RBC 8 /100 WBC 08/18/2020 DHPM 9:33 AM ASSEMBLER DRY CELL AND BATTERY Manual Absolute 2.15 1.56 - 08/18/2020 DHPM Neutrophil Count 6.45 9:33 AM ASSEMBLER DRY CELL AND BATTERY x10(9)/L Comment: ----ADDITIONAL INFORMATION---- The manual absolute neutrophil count is derived from a manual differential count and therefore is not exactly comparable to the automated absolute halie trophil count. Reviewed by: Tech 08/18/2020 9:33 AM ASSEMBLER DRY CELL AND BATTERY [facility] Specimen Anatomical Collection Method Collection Time Receive d Time (Source) Location / / Volume Laterality Blood 08/18/2020 8:18 AM 8:46 ASSEMBLER DRY CELL AND BATTERY AM ASSEMBLER DRY CELL AND BATTERY Janusz Ardon LAB BLOOD ADD-ON Performing Organization Address City/[facility] Phon e Number [facility] - 200 [place], [place] [address] [place] [address] Laboratories-[address] Type and Screen (with reflex Antibody ID) (08/18/2020 8:18 AM ASSEMBLER DRY CELL AND BATTERY) [facility] Starteed Method Time Signature ABORh A Pos Not 08/18/2020 ETRM applicable 9:36 AM ASSEMBLER DRY CELL AND BATTERY Antibody Negative Negative 08/18/2020 ETRM Screen 9:38 AM ASSEMBLER DRY CELL AND BATTERY Type & Screen 08/21/2020 08/18/2020 ETRM Expiration 23:59 9:36 AM ASSEMBLER DRY CELL AND BATTERY Testing Deidra DEFAULT 08/18/2020 ETRM Location 8:31 AM ASSEMBLER DRY CELL AND BATTERY Specimen Anatomical Collection Method Collection Time Receive d Time (Source) Location / / Volume Laterality Blood (Blood, 08/18/2020 8:18 AM 08/18/19 21 8:31 Venous) ASSEMBLER DRY CELL AND BATTERY AM ASSEMBLER DRY CELL AND BATTERY Janusz AlexandraSZahraa LAB BLOOD BANK TEST ORDERABL ES Performing Organization Address [facility] Phon e Number [facility] - [address] [place] [address] [facility] [place] [address] Laboratories-[address] (ABNORMAL) CBC with Differential, Blood (08/18/2020 8:18 AM ASSEMBLER DRY CELL AND BATTERY) [facility] Starteed Method Time Signature Hemoglobin 7.3 (L) 11.6 - 08/18/2020 DTL 15.0 g/dL 8:57 AM ASSEMBLER DRY CELL AND BATTERY Hematocrit 24.2 (L) 35.5 - 08/18/2020 DTL 44.9 % 8:57 AM ASSEMBLER DRY CELL AND BATTERY Erythrocytes 2.63 (L) 3.92 - 08/18/2020 DTL 5.13 8:57 AM ASSEMBLER DRY CELL AND BATTERY x10(12)/L MCV 92.0 78.2 - 08/18/2020 DTL 97.9 fL 8:57 AM ASSEMBLER DRY CELL AND BATTERY RBC Distrib Width 25.2 (H) 12.2 - 08/18/2020 DTL 16.1 % 8:57 AM ASSEMBLER DRY CELL AND BATTERY Platelet Count 110 (L) 157 - 371 08/18/2020 DTL x10(9)/L 8:57 AM ASSEMBLER DRY CELL AND BATTERY Leukocytes 2.9 (L) 3.4 - 9.6 08/18/2020 DTL x10(9)/L 9:33 AM ASSEMBLER DRY CELL AND BATTERY Comment: Results confirmed by smear. Neutrophils SeeComment 1.56 - 6.45 x10(9)/L 08/18/2020 9:33 AM ASSEMBLER DRY CELL AND BATTERY DTL Comment: Auto-diff results not valid. Se e manual differential. Specimen Anatomical Collection Method Collection Time Receive d Time (Source) Location / / Volume Laterality Blood (Blood, 08/18/2020 8:18 AM 08/18/19 8:46 Venous) ASSEMBLER DRY CELL AND BATTERY AM ASSEMBLER DRY CELL AND BATTERY Janusz Ardon LAB BLOOD ADD-ON Performing Organization Address City/State/ZIP Code Phon e Number [facility] - [address] [place], [place] [address] [facility] [place] [address] Laboratories-[facility] [address] documented in this encounter Visit Diagnoses Diagnosis Myelofibrosis (HCC) documented in this encounter
--- OUTSIDE RECORDS SUMMARY | 2022-05-02 12:08 | XMS_ITS | Encounter Summary ---
:1970 Author Organization [facility] Address [address] [place] [address] Care Team Providers Name Role Phone Unavailable Primary Care Provider Unavailable Reason for Visit Reason Comments Patient care question Encounter Details Date Type Department Care Team Description 02/15/2021 Clinical Communication Division of Ann Marie Govea [facility] Hematology in [address] [place] [phone] Social History Tobacco Use Types Packs/Day Years Used Date Smoking Tobacco: Former Smokeless Tobacco: Never Sex Assigned at Date Recorded 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 - 02/15/2021 4:08 PM CDT I called and spoke to patient's Gian. Gian states that Jennifer didn't get transfusion done the other day because of spleen pain. Patient is scheduled for CBC on 02/[address] Govea.Informed Gian I would add type and screen lab and if needed, patient could receive blood here in [place] tomorrow. Gian requested we move labs prior to Dr. Govea's visit, so it gives more time fortransfusion before 3:00 US appt. Lab appt rescheduled to 710. Gian verbalized understanding and in agreement with plan. Telephone Encounter - Claudia Mackay - 02/15/2021 11:47 AM CDT Name of caller: Gian Mcintyreton Do we have a valid auth to speak with caller? Yes If so, date of authorization: 03/04/2016 Reason for call: Patient was supposed to receive blood locally at [facility] in [place] on Friday, 02/14 but was too sore to go. Spouse is wondering if patient could receive blood on 02/16 when they are here for appointments. Call back number is [phone]. Is it okay to leave a voicemail on answering machine? yes. Thank you, Claudia Hematology [facility] MAA documented in this encounter Plan of Treatment Not on filedocumented as of this encounter Results Type and Screen (with reflex Antibody ID) (02/16/2021 7:14 AM CDT) [facility] Method Time Signature ABORh A Pos Not 02/16/2021 ETRM applicable 10:16 AM CDT Antibody Negative Negative 02/16/2021 ETRM Screen 10:10 AM CDT Type & Screen 02/19/2021 02/16/2021 ETRM Expiration 23:59 10:10 AM CDT Testing [place] DEFAULT 02/16/2021 ETRM Location 7:49 AM CDT Specimen Anatomical Collection Method Collection Time Receive d Time (Source) Location / / Volume Laterality Blood (Blood, 02/16/2021 7:14 AM 02/17/20 7:49 Venous) CDT AM CDT Naseema Gangat M.B.B.S. LAB BLOOD BANK TEST ORDERABL ES Performing Organization Address City/State/ZIP Code Phon e Number [facility] - [address] [place], [place] [address] [facility] [place] [address] [facility] [address] documented in this encounter Visit Diagnoses Diagnosis Myelofibrosis (HCC) - Primary documented in this encounter
--- OUTSIDE RECORDS SUMMARY | 2022-05-02 12:08 | XMS_ITS | Encounter Summary ---
:1970 Author Organization 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 encounter Last Filed Vital Signs Vital Sign Reading Time Taken Comments Blood Pressure 124/65 08/04/2020 5:48 PM REGISTERED NURSING PROFESSOR Pulse 88 08/04/2020 5:48 PM REGISTERED NURSING PROFESSOR Temperature 36.6 ??C (97.9 ??F) 08/04/2020 5:48 PM REGISTERED NURSING PROFESSOR Respiratory Rate 18 08/04/2020 5:48 PM REGISTERED NURSING PROFESSOR Oxygen Saturation - - Inhaled Oxygen Concentration - - Weight - - Height - - Body Mass Index - - documented in this encounter Plan of Treatment Pending Results Name Type Priority Associated Diagnoses Date/Ti me Prepare Red Blood Blood Bank Routine Myelofibrosis (HCC) 10:17 AM REGISTERED NURSING PROFESSOR Cells, 1 Units documented as of this encounter Procedures Procedure Name Priority Date/Time Associated Diagnosis Comme nts TRANSFUSE RED BLOOD Routine 08/04/2020 3:25 PM REGISTERED NURSING PROFESSOR Myelofibros is (HCC) CELLS PREPARE RED BLOOD CELLS Routine 08/04/2020 10:17 AM REGISTERED NURSING PROFESSOR Myelof ibrosis (HCC) documented in this encounter Results Transfuse Red Blood Cells : (08/04/2020 5:53 PM REGISTERED NURSING PROFESSOR) Janusz Govea M.B.B.S. BLOOD TRANSFUSION ORDERABLES Transfuse Red Blood Cells : , 1 Units (08/04/2020 5:53 PM REGISTERED NURSING PROFESSOR) Janusz Govea M.B.B.S. BLOOD TRANSFUSION ORDERABLES documented in this encounter Visit Diagnoses Diagnosis Myelofibrosis (HCC) - Primary documented in this encounter Administered Medications Inactive Administered Medications - up to 3 most recent administrations Medication Order MAR Action Action Date Dose Rate Site NaCl 0.9% infusion New Bag 08/04/2020 5:27 PM REGISTERED NURSING PROFESSOR 180 mL/hr 180 mL/hr 20-500 mL/hr, intravenous, As needed, Between Unit of Blood Products, Starting on Fri08/04/20 at 1527, Infuse at the same rate as the blood infusion until tubing cleared. Nurse may reduce rate to 20 mL/hour or as otherwise directed until next blood infusion arrives then discontinue when infusion complete. sodium chloride 0.9 % injection 3 mL Given 08/04/2020 3:24 PM REGISTERED NURSING PROFESSOR 3 mL 3 mL, intra-catheter, As needed, line care, Starting on Fri08/04/20 at 1527, Prior to and following infusion and between multiple consecutive infusions. documented in this encounter
--- OUTSIDE RECORDS SUMMARY | 2022-05-02 12:08 | XMS_ITS | Encounter Summary ---
:1970 Author Organization [facility] Address [address] [place] [address] Care Team Providers Name Role Phone Unavailable Primary Care Provider Unavailable Reason for Visit Outpatient (Routine) - Closed Specialty Diagnoses / Procedures Referred By Contact Refer red To Contact Hematology Oncology Diagnoses [facility]el[facility]rosis [facility]HCC) [facility] [address] [place] [phone] Referral ID Status Reason Start Date Expiration Date Visits Requ ested Visits Authorized [id number] Closed 08/14/2020 08/14/2021 1 1 Encounter Details Date Type Department Care Team Description 09/12/2020 Virtual Visit Division of Xuan, Myelofibrosis (HCC) Hematology in [facility] (Primary Dx) [place], [place] M.B.B.S. 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 - 09/12/2020 10:30 AM CST SUBJECTIVE This is a phone visit due to the COVID pandemic. CHIEF COMPLAINT/REASON FOR VISIT DIPSS plus high-risk MIPSS-70 intermediate risk primary myelofibrosis with symptomatic splenomegaly and transfusion-dependent anemia. HISTORY OF PRESENT ILLNESS Mrs. Dobbs is a pleasant 50-year-old lady with primary myelofibrosis. She has previously been intolerant of Jakafi, which led to transfusion dependence. Her main issues are symptomatic splenomegaly for which she requires narcotics and transfusion-dependent anemia. She recently enrolled on the study, received cycle 1, day 1 on 06/06 and cycle 3, day 1 on 08/01/2020. Her last treatment was cycle 3, day 4 on 08/03, after which she decided to come off study due to lackof benefit and increasing transfusion needs. Since coming off study, she feels that her energy level has improved. She has had no nausea or vomiting. She did have a few bouts of severe spleen pain. She has headaches on and off. In terms of transfusions, her last transfusion was at [place] on 08/11/2020, which consisted of 1 unit of RBC. Recently, her hemoglobin is down to 7 g/dL. There has been no change in her spleen size, but overall, she is feeling better after coming off study. ASSESSMENT / PLAN #1 DIPSS plus high-risk MIPSS-70 intermediate risk 2 CALR, SF3B1 mutated primary myelofibrosis At this time, we are observing her since she recently came off the study about 6 weeks ago. For her symptomatic splenomegaly, she is on narcotic regimen. I plan to see her in 3 months' time to discuss treatment options. She has been intolerant of Jakafi in the past. Also tried alisertib clinical trial with lack of benefit and toxicities. #2 Transfusion requiring anemia We will set her up for a CBC, type, screen, and 1 unit of RBC transfusion tomorrow at [place]. #3 Hyperuricemia She is on allopurinol 300 mg daily. #4 Followup I plan to see her in [address] Evy Foreman. CT CT Job ID: [id number]/[facility] HEALTH BILLING SPECIALIST documented in this encounter Plan of Treatment Not on filedocumented as of this encounter Results Type and Screen (with reflex Antibody ID) (09/13/2020 8:10 AM HOME HEALTH BILLING SPECIALIST) [facility] Method Time Signature ABORh A Pos Not 09/13/2020 ETRM applicable 9:29 AM HOME HEALTH BILLING SPECIALIST Antibody Negative Negative 09/13/2020 ETRM Screen 9:29 AM HOME HEALTH BILLING SPECIALIST Type & Screen 09/16/2020 09/13/2020 ETRM Expiration 23:59 9:29 AM HOME HEALTH BILLING SPECIALIST Testing [place] DEFAULT 09/13/2020 ETRM Location 8:46 AM HOME HEALTH BILLING SPECIALIST Specimen Anatomical Collection Method Collection Time Receive d Time (Source) Location / / Volume Laterality Blood (Blood, 09/13/2020 8:10 AM 09/14/19 21 8:46 Venous) HOME HEALTH BILLING SPECIALIST AM HOME HEALTH BILLING SPECIALIST Janusz Ardon LAB BLOOD BANK TEST ORDERABL ES Performing Organization Address City/State/ZIP Code Phon e Number [facility] - [address] [place], [place] [address] [facility] [place] [place] [address] [facility] [address] documented in this encounter Visit Diagnoses Diagnosis Myelofibrosis (HCC) - Primary documented in this encounter
--- OUTSIDE RECORDS SUMMARY | 2022-05-02 12:08 | XMS_ITS | Encounter Summary ---
:[address] [facility] Address [address] [place] [address] Care Team Providers Name Role Phone Unavailable Primary Care Provider Unavailable Reason for Visit Reason Comments Outpatient Infusion anemia Encounter Details Date Type Department Care Team Description 09/13/2020 Infusion Department of Infusion Janusz Govea M yelofibrosis (HCC) Therapy in [facility] (Primary Dx) [address] [place] [phone] Social History Tobacco Use Types Packs/Day Years Used Date Smoking Tobacco: Former Smokeless Tobacco: Never Sex Assigned at Date Recorded 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 Last Filed Vital Signs Vital Sign Reading Time Taken Comments Blood Pressure 137/74 09/13/2020 4:45 PM TOOL RENTAL TECHNICIAN Pulse 88 09/13/2020 4:45 PM TOOL RENTAL TECHNICIAN Temperature 37 ??C (98.6 ??F) 09/13/2020 4:45 PM TOOL RENTAL TECHNICIAN Respiratory Rate 16 09/13/2020 4:45 PM TOOL RENTAL TECHNICIAN Oxygen Saturation - - Inhaled Oxygen Concentration - - Weight - - Height - - Body Mass Index - - documented in this encounter Plan of Treatment Pending Results Name Type Priority Associated Diagnoses Date/Ti me Prepare Red Blood Blood Bank Routine Myelofibrosis (HCC) 09/2020 8:10 AM TOOL RENTAL TECHNICIAN Cells, 1 Units documented as of this encounter Procedures Procedure Name Priority Date/Time Associated Diagnosis Comme nts TRANSFUSE RED BLOOD Routine 09/13/2020 2:29 PM TOOL RENTAL TECHNICIAN Myelofibros is (HCC) CELLS PREPARE RED BLOOD CELLS Routine 09/13/2020 8:10 AM TOOL RENTAL TECHNICIAN Myelofi brosis (HCC) documented in this encounter Results Transfuse Red Blood Cells : (09/13/2020 5:08 PM TOOL RENTAL TECHNICIAN) Naseema Gangat M.B.B.S. BLOOD TRANSFUSION ORDERABLES Transfuse Red Blood Cells : , 1 Units (09/13/2020 5:08 PM TOOL RENTAL TECHNICIAN) Naseema Gangat M.B.B.S. BLOOD TRANSFUSION ORDERABLES documented in this encounter Visit Diagnoses Diagnosis Myelofibrosis (HCC) - Primary documented in this encounter Administered Medications Inactive Administered Medications - up to 3 most recent administrations Medication Order MAR Action Action Date Dose Rate Site NaCl 0.9% infusion New Bag 09/13/2020 4:28 PM 180 mL/hr 180 mL/hr 10-250 mL/hr, intravenous, As TOOL RENTAL TECHNICIAN needed, Between Consecutive Piggyback Administrations, Starting on Fri09/13/20 at 1340, Infuse at the same rate as the piggyback until tubing clears or up to a volume of 20 mL. Select for IV medication administration when no maintenance IV available or when IV medications are not compatible with maintenance fluid. sodium chloride 0.9 % injection 3 mL Given 09/13/2020 4:47 PM TOOL RENTAL TECHNICIAN 3 mL 3 mL, intra-catheter, As needed, line care, Starting on Fri09/13/20 at 1340, Prior to and following infusion and between multiple consecutive infusions. Given 09/13/2020 2:03 PM TOOL RENTAL TECHNICIAN 3 mL documented in this encounter
--- OUTSIDE RECORDS SUMMARY | 2022-05-02 12:08 | XMS_ITS | Encounter Summary ---
:1970 Author Organization [facility] Address [address] [place] [address] Care Team Providers Name Role Phone Unavailable Primary Care Provider Unavailable Reason for Visit Reason Comments Intake Assessment Encounter Details Date Type Department Care Team Description 09/08/2020 Clinical Communication Division of Tim Govea Hematology in [place], [place] M.B.B.S. 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
--- OUTSIDE RECORDS SUMMARY | 2022-05-02 12:08 | XMS_ITS | Encounter Summary ---
:1970 Author Organization [facility] Address [address] [place] [address] Care Team Providers Name Role Phone Unavailable Primary Care Provider Unavailable Reason for Visit Reason Comments Intake Assessment Encounter Details Date Type Department Care Team Description 02/14/2021 Clinical Communication Division of Abraham Govea Assessment Hematology in [place], [place] M.B.B.S. 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
--- OUTSIDE RECORDS SUMMARY | 2022-05-02 12:08 | XMS_ITS | Encounter Summary ---
:1970 Author Organization [facility] Address [address] [place] [address] Care Team Providers Name Role Phone Unavailable Primary Care Provider Unavailable Reason for Visit Reason Comments Outpatient Infusion Encounter Details Date Type Department Care Team Description 08/11/2020 Infusion Department of Infusion Janusz Govea M yelofibrosis (HCC) Therapy in [facility]. 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 encounter Last Filed Vital Signs Vital Sign Reading Time Taken Comments Blood Pressure 122/88 08/11/2020 3:07 PM DENTAL ASSISTANT Pulse 104 08/11/2020 3:07 PM DENTAL ASSISTANT Temperature 37.2 ??C (99 ??F) 08/11/2020 3:07 PM DENTAL ASSISTANT Respiratory Rate 18 08/11/2020 3:07 PM DENTAL ASSISTANT Oxygen Saturation - - Inhaled Oxygen Concentration - - Weight - - Height - - Body Mass Index - - documented in this encounter Plan of Treatment Pending Results Name Type Priority Associated Diagnoses Date/Ti me Prepare Red Blood Blood Bank Routine Myelofibrosis (HCC) 8:24 AM DENTAL ASSISTANT Cells, 1 Units documented as of this encounter Procedures Procedure Name Priority Date/Time Associated Diagnosis Comme nts TRANSFUSE RED BLOOD Routine 08/11/2020 12:38 PM DENTAL ASSISTANT Myelofibro sis (HCC) CELLS PREPARE RED BLOOD CELLS Routine 08/11/2020 8:24 AM DENTAL ASSISTANT Myelofi brosis (HCC) documented in this encounter Results Transfuse Red Blood Cells : (08/11/2020 3:08 PM DENTAL ASSISTANT) Janusz Dillon.Cain.B.S. BLOOD TRANSFUSION ORDERABLES Transfuse Red Blood Cells : , 1 Units (08/11/2020 3:08 PM DENTAL ASSISTANT) Janusz Govea M.B.B.S. BLOOD TRANSFUSION ORDERABLES documented in this encounter Visit Diagnoses Diagnosis Myelofibrosis (HCC) - Primary documented in this encounter
--- OUTSIDE RECORDS SUMMARY | 2022-05-02 12:08 | XMS_ITS | Encounter Summary ---
:1970 Author Organization [facility] Address [address] [place] [address] Care Team Providers Name Role Phone None Reported, Pcp Primary Care Provider Unavailable Reason for Visit Reason Comments Abdominal Pain Encounter Details Date Type Department Care Team Description 02/16/2021 Emergency [facility] Sztajnkrycer, Abdomi nal Pain (Primary Dx); Emergency Department Edin Hubbard M.D., Splenomegaly Acquired; [address] [place] [address] Ph.D. [place], [place] [address] [facility] [address] [place], [place] [phone] [phone] (Wo rk) Social History Tobacco Use Types [...] at Date Recorded Female 07/24/2021 11:03 AM [employer] documented as of this encounter Last Filed Vital Signs Vital Sign Reading Time Taken Comments Blood Pressure 132/72 02/16/2021 1:52 PM CDT Pulse 79 02/16/2021 1:15 PM CDT Temperature 36.9 ??C (98.4 ??F) 02/16/2021 1:52 PM CDT Respiratory Rate 20 02/16/2021 1:52 PM CDT Oxygen Saturation 88% 02/16/2021 1:15 PM CDT Inhaled Oxygen Concentration - - Weight - - Height - - Body Mass Index - - documented in this encounter Discharge Instructions Discharge InstructionsCristian Linda M.D. - 02/16/2021 1:52 PM CDT CARE PLAN: Call your security installation technician immediately to arrange outpatient evaluation. You are welcome to return to the ED at any time to be admitted if you change your mind. Thank you for allowing us to care for you today. documented in this encounter Medications at Time [...] needed (upset tablet, effervescent stomach). allopurinoL (ZYLOPRIM) TAKE 1 TABLET(300 30 tablet 3 202003/14/2021 300 mg tablet MG) BY MOUTH DAILY ibuprofen (ADVIL,MOTRIN) Take 400 mg by mouth 0 06/11/2021 200 mg tablet as needed for pain. morphine (MSIR) 15 mg Take 15 mg by mouth 0 03/11/2022 tablet at bedtime. oxyCODONE (OXY-IR) 5 mg Take 2 capsules by 0 02/1203/18/2022 immediate release capsule mouth every 4 (four) hours as needed. documented as of this encounter ED Notes Edin Wills M.D., Ph.D. - 02/16/2021 10:27 AM CDT I have personally seen and examined this patient. I have fully participated in the care of this patient. I have reviewed all clinical information including history, physical exam, orders, and plan. I agree with the note of the resident. delightful 50-year-old female, complex past medical history including mild fibrotic disorder and splenomegaly, presents with a 2 week history of progressively worsening left flank pain. Was here incidentally for hematology clinic today and mention this worsening pain. Was noted to look pale and unwell and so transferred to the ER. Had been taking oxycodone and morphine orally at home with minimal arely relief. Here she is tachycardic at 1:11, her blood pressure is 110 and therefore her shock index is greater than 1. Her sats are 90-91% on room air. Please see the physical exam by the resident. At this point she looks unwell. She is anemic with a hemoglobin is 6.7 here. We will provide blood products. She is tachycardic with a shock index greater than 1 although normotensive. She also has unexplained hypoxia. We will swab for COVID. Will get a chest x-ray. Will get a belly CT. Certainly, splenic rupture is in the differential as is splenic thrombosis. We have given 75 micro g of fentanyl but she still looks extremely uncomfortable. I think she will need admission. Final Diagnoses: as of Feb 18 727 Abdominal Pain Splenomegaly Acquired Anemia Edin Wills M.D., Ph.D. 02/16/21 1029 Edin Wills M.D., Ph.D. 02/16/21 1030 Edin Wills M.D., Ph.D. 02/18/21726 NT Cristian Linda M.D. - 02/16/2021 9:08 AM CDT SUBJECTIVE CHIEF COMPLAINT/REASON FOR VISIT Abdominal Pain HISTORY OF PRESENT ILLNESS This is a 50-year-old female. She has a previous no history of myelofibrosis, hypertension, obesity,chronic splenic enlargement, chronic pain. She presents today due to abdominal pain. The patient states that for the past two weeks, she has had gradually worsening left upper quadrant pain which radiates throughout her whole abdomen. She occasionally has the sensation that something is moving her abdomen which is very uncomfortable. She has not yet sought medical attention for this over the past two weeks. She has been taking her previously prescribed opioid pain medications which have provided partial relief. She has occasionally had vomiting, which is a chronic issue for her, butoverall has been able to eat and drink normally. Today, the patient had a schedule opposition appointment with her security installation technician at [place], who examinedher and felt she needed to come to the ED for emergent evaluation due to her pain. She was specifically concerned about a complication of her known splenomegaly. Under few systems, the patient does also endorse intermittent headaches which are typically severe and last for about 30 seconds at a cyclical manner. She also endorses chest pain, shortness of breath,and diffuse body aches which she states are a chronic issue with her without any recent change in quality of symptoms. REVIEW OF SYSTEMS Constitutional: Negative for fever. Eyes: Negative for visual disturbance. Skin: Negative for rash. OBJECTIVE Initial Vitals Temperature Pulse Rate Heart Rate Resp Rate Blood Pressure SpO2 02/16/21 0915 02/16/21 0915 02/16/21 1135 02/16/21 1135 02/16/21 0915 02/16/21 0915 36.7 ??C 89 82 20 127/74 96 % Pain Score 02/16/21 0913 0 - No pain PHYSICAL EXAMINATION Constitutional: Nursing note and vitals reviewed. Adult female, not in acute distress but appears unwell HENT: Head: Normocephalic. Nose: Nose normal. Eyes: EOM are normal. Pupils are equal, round, and reactive to light. Cardiovascular: Normal rate. Edema: no edema noted Pulmonary/Chest: Effort normal. No respiratory distress. Abdominal: Abdomen is distended actually fairly firm. There is diffuse tenderness to palpation in any location. Musculoskeletal: General: Normal range of motion. Cervical back: Normal range of motion. Neurological: Alert and oriented to person, place, and time. No cranial nerve deficit. Skin: Skin is dry. Psychiatric: She has a normal mood and affect. Behavior is normal. ASSESSMENT/PLAN IMPRESSION AND PLAN This is a 50-year-old female who presents today due to two weeks abdominal pain. Differential diagnosis would include worsening splenomegaly leading to infarction/hemorrhage head, also toxic megacolon,also intestinal perforation. We will obtain a wide aware of labs including hepatic function panel and lipase. We will obtain a CT of her abdomen. Disposition pending results. Reassessment: CBC here confirmed hemoglobin less than seven and she is now status post [address] scan does not show any splenic infarct or rupture, however does show new stranding around the left kidney concerning for inflammation. I would suspect this is secondary to local mass effect from her massive spleen. Renal function is unchanged at this time. We did recommend admission for this patient and she was accepted to the Hematology Service. However,once patient was informed of plan, she stated she would decline admission. She states she is very uncomfortable in the hospital and is not willing to stay for an inpatient workup. She demonstrated excellent understanding about the risks of delaying immediate evaluation of her condition, and that the complications would be hard to predict but could include renal failure or other life-threatening causes. She demonstrates full capacity to decline our medical recommendation of admission. She was instructed to call her security installation technician to arrange for outpatient management as quickly as possible. She was also invited to return to the ED at any time should she change her mind about admission. Appropriate return precautions were discussed. All questions were answered. The patient was discharged in stable condition. I reviewed previous medical records including documentation from previous visits. I personally reviewed the lab result(s) and my interpretation is documented in ED Course. I personally reviewed the radiology image(s) and reviewed the radiology report(s). Case reviewed with other health md do resident urgent care, including Admitting Provider. Final Diagnoses: as of Feb 16 1355 Abdominal Pain Splenomegaly Acquired Anemia Care Handoff Row Name 02/16/21 1320 Care Handoff Type of Handoff Admission handoff Cristian Linda M.D. Resident 02/16/21 1410 documented in this encounter Plan of Treatment Pending Results Name Type Priority Associated Diagnoses Date/Ti me Prepare Red Blood Blood Bank Routine 02/16/2021 7:14 AM CDT Cells, 1 Units documented as of this encounter Procedures Procedure Name Priority Date/Time Associated Comments Diagnosis DX CHEST PORTABLE 1 RAD - Routine 02/16/2021 11:36 Res ults for VIEW (most inpatients AM CDT this proced ure and all are in the outpatients) results section. TRANSFUSE RED BLOOD Routine 02/16/2021 11:35 CELLS AM CDT SARS CORONAVIRUS 2, STAT 02/16/2021 10:53 Resu lts for PCR RAPID, V AM CDT this procedure are in the results section. CT ABDOMEN PELVIS RAD - Semiurgent 02/16/2021 10:40 Re sults for WITH IV CONTRAST (Fast; most ED AM CDT this proc edure patients; some are in the inpatients) results section. BLOOD GAS, POCT, B STAT 02/16/2021 9:38 Result s for AM CDT this procedure are in the results section. LACTATE, POCT, B STAT 02/16/2021 9:38 Results for AM CDT this procedure are in the results section. HC URINALYSIS AUTO WO Routine 02/16/2021 9:37 Res ults for MICRO AM CDT this procedure are in the results section. LACTATE, POCT, B Routine 02/16/2021 9:37 Results for AM CDT this procedure are in the results section. DIPSTICK, U STAT 02/16/2021 9:34 Results for AM CDT this procedure are in the results section. MICROSCOPIC AUTOMATED STAT 02/16/2021 9:34 Res ults for AM CDT this procedure are in the results section. BACTERIAL CULTURE, STAT 02/16/2021 9:34 Result s for AEROBIC + SUSC, URINE AM CDT this p rocedure are in the results section. PH, U STAT 02/16/2021 9:34 Results for AM CDT this procedure are in the results section. OSMOLALITY, U STAT 02/16/2021 9:34 Results for AM CDT this procedure are in the results section. URINALYSIS WITH STAT 02/16/2021 9:34 Results f or MICROSCOPIC AM CDT this procedure are in the results section. VBG & LYTES CG8+, Routine 02/16/2021 9:33 Results for POCT, B AM CDT this procedure are in the results section. HEPATIC FUNCTION STAT 02/16/2021 9:33 Results for PANEL, S AM CDT this procedure are in the results section. ACTIVATED PARTIAL STAT 02/16/2021 9:33 Results for THROMBOPLASTIN TIME AM CDT this pro cedure (APTT), P are in the results section. PROTHROMBIN TIME STAT 02/16/2021 9:33 Results for (PT), P AM CDT this procedure are in the results section. CBC WITH STAT 02/16/2021 9:33 Results for DIFFERENTIAL, B AM CDT this procedu re are in the results section. TYPE AND SCREEN STAT 02/16/2021 9:33 Results f or AM CDT this procedure are in the results section. HUMAN CHORIONIC STAT 02/16/2021 9:33 Results f or GONADOTROPIN (HCG), AM CDT this pro cedure SAVANAH, are in the results section. LIPASE, S/P STAT 02/16/2021 9:33 Results for AM CDT this procedure are in the results section. BASIC METABOLIC STAT 02/16/2021 9:33 Results f or PANEL, S/P AM CDT this procedure are in the results section. PREPARE RED BLOOD Routine 02/16/2021 7:14 CELLS AM CDT TYPE AND SCREEN STAT 02/16/2021 7:11 Results f or AM CDT this procedure are in the results section. documented in this encounter Results Transfuse Red Blood Cells : (02/16/2021 1:53 PM CDT) Cristian Linda M.D. BLOOD TRANSFUSION ORDERABLES Transfuse Red Blood Cells : , 1 Units (02/16/2021 1:53 PM CDT) Cristian Linda M.D. BLOOD TRANSFUSION ORDERABLES DX Chest Portable 1 View (02/16/2021 11:36 AM CDT) Anatomical Region Laterality Modality Chest, Thoracic RST LOS, Thoracic ARZ LOS, Thoracic N/A Digital Radiography FLA LOS Specimen (Source) Anatomical Collection Method Collection Time Re ceived Time Location / / Volume Laterality 02/16/2021 11:37 AM CDT Impressions 02/16/2021 11:52 AM CDT No change since 05/01/2016. Shallow inspiration with accentuation of cardiac silhouette. Otherwise negativ e chest. Narrative 02/16/2021 11:52 AM CDT EXAM: ??DX CHEST PORTABLE 1 VIEW Procedure Note Gabriela Gómez M.D. - 08/06/2021Formatt ing of this note might be different from the original. EXAM: DX CHEST PORTABLE 1 VIEW IMPRESSION: No change since 05/01/2016. Shallow insp iration with accentuation of cardiac silhouette. Otherwise negativ e chest. Cristian Linda M.D. IMG DIAGNOSTIC IMAGING PROCE NADINE SARS Coronavirus 2, PCR Rapid, V Symptomatic (02/16/2021 10:53 AM CDT) [facility] Method Time Signature SARS CoV-2, Undetected Undetected 02/16/2021 STMA PCR, Rapid, V 11:25 AM CDT Comment: ----ADDITIONAL INFORMATION---- This RT-PCR test was performed using the Mirtha SARS-CoV-2 and Influenza A/B Reagent assay from [employer], which has received Emergency Use Authori zation(EUA) by the U.S. Food and Drug Administration . Fact sheets for this Emergency Use Autho rization (EUA) assay can be found at the following link s: For Healthcare Providers: https://www.fda.gov/media/069392/downloa d For Patients: https://www.fda.gov/media/838412/downloa d SARS Coronavirus 2, Source, Swab, Nasopharynx 12/2020 11:00 AM CDT STMA Rapid Specimen Anatomical Collection Method Collection Time Receive d Time (Source) Location / / Volume Laterality Varies 02/16/2021 10:53 02/16/2021 (Nasopharynx) AM CDT 11:00 AM CDT Cristian Linda M.D. LAB MICROBIOLOGY - GENERAL O RDERABLES Performing Organization Address City/State/ZIP Code Phon e Number [facility] - [address] [place] [address] [address] [place] [address] Laboratories-[facility] [address] Abdomen Pelvis with IV Contrast (02/16/2021 10:40 AM CDT) Anatomical Region Laterality Modality Abdomen, Pelvis, Abdominal RST LOS, N/A Comp uted Tomography, Computed Abdominal ARZ LOS, Abdominal FLA LOS Esa ography Specimen (Source) Anatomical Collection Method Collection Time Re ceived Time Location / / Volume Laterality 02/16/2021 10:54 AM CDT Impressions 02/16/2021 11:11 AM CDT 1. Some heterogeneous enhancement of the left kidney which is compressed by the markedly enlarged spleen. Increased zenaida nephric stranding. Consider pyelonephritis or perhaps some degree of vascular congestion related to the compression of the spleen. 2. No interval change in the size or con tour of the spleen itself. Narrative 02/16/2021 11:11 AM CDT EXAM: ??CT ABDOMEN PELVIS WITH IV CONTRAST COMPARISON: ??06/05/2020. FINDINGS: ??There is no interval change in the appearance of the spleen compared to the study from 06/05/2020. This is ma ssively enlarged, measuring 28 x 15 in the axial plane x 34 cm in the coronal p brittney. No evidence of capsular rupture. There is no interval change in the appea moises compared to the previous study. Small stable splenic infarct inferiorly and anteriorly at the level of the umbilicus. This is unchanged compared to the previous study and measures about 3 cm, and is wedge-shaped at the periphery . Mild air trapping in the lung bases bila terally with heterogeneous aeration of the lung parenchyma. Normal heart size. Small pericardial eff usion. The liver, right adrenal gland, pancreas are within normal limits. Noncalcified cholesterol gallstones are noted. No fin dings of acute cholecystitis. Subcentimeter adenoma of the posterior l imb of the left adrenal gland. The left kidney is markedly compressed by the spl een and demonstrates some heterogeneous enhancement and new perinephric strandin g compared to the previous study. Question pyelonephritis or changes relat ed to compression. The uterus and adnexal structures are wi thin normal limits. There is no bowel wall thickening or abnormal distention. No free intraperitoneal fluid or gas. Very minimal atherosclerotic calcificati on of the left common iliac artery. Moderate degenerative changes of the spi ne. Procedure Note Gabriela Gómez M.D. - 02/16/2021Formatt ing of this note might be different from the original. EXAM: CT ABDOMEN PELVIS WITH IV CONTRAST COMPARISON: 06/05/2020. FINDINGS: There is no interval change in the appearance of the spleen compared to the study from 06/05/2020. This is ma ssively enlarged, measuring 28 x 15 in the axial plane x 34 cm in the coronal p brittney. No evidence of capsular rupture. There is no interval change in the appea moises compared to the previous study. Small stable splenic infarct inferiorly and anteriorly at the level of the umbilicus. This is unchanged compared to the previous study and measures about 3 cm, and is wedge-shaped at the periphery . Mild air trapping in the lung bases bila terally with heterogeneous aeration of the lung parenchyma. Normal heart size. Small pericardial eff usion. The liver, right adrenal gland, pancreas are within normal limits. Noncalcified cholesterol gallstones are noted. No fin dings of acute cholecystitis. Subcentimeter adenoma of the posterior l imb of the left adrenal gland. The left kidney is markedly compressed by the spl een and demonstrates some heterogeneous enhancement and new perinephric strandin g compared to the previous study. Question pyelonephritis or changes relat ed to compression. The uterus and adnexal structures are wi thin normal limits. There is no bowel wall thickening or abnormal distention. No free intraperitoneal fluid or gas. Very minimal atherosclerotic calcificati on of the left common iliac artery. Moderate degenerative changes of the spi ne. IMPRESSION: 1. Some heterogeneous enhancement of the left kidney which is compressed by the markedly enlarged spleen. Increased zenaida nephric stranding. Consider pyelonephritis or perhaps some degree of vascular congestion related to the compression of the spleen. 2. No interval change in the size or con tour of the spleen itself. Cristian Linda M.D. IMG CT PROCEDURES Lactate, POCT (02/16/2021 9:38 AM CDT) Analysis Performed At Patho logist Time Signature Lactate, POCT Collected DEFAULT 02/16/2021 [facility] 9:38 AM CDT Specimen Anatomical Collection Method Collection Time Receive d Time (Source) Location / / Volume Laterality Blood (Blood, 02/16/2021 9:38 AM 02/17/20 9:38 Venous) CDT AM CDT Cristian Linda M.D. LAB POCT ORDERABLES - DEVICE Performing Organization Address City/State/ZIP Code Phon e Number [facility] - [address] [place], [place] [address] [facility] [place] [address] [facility] [address] Venous Blood Gas and Electrolytes, POCT (02/16/2021 9:38 AM CDT) Analysis Performed At Patho logist Time Signature ABG and Lytes, Collected DEFAULT 02/16/2021 [facility] POCT, B 9:38 AM CDT Specimen Anatomical Collection Method Collection Time Receive d Time (Source) Location / / Volume Laterality Blood (Other, 02/16/2021 9:38 AM 02/17/20 9:38 Specify in CDT AM CDT Comments) Cristian Linda M.D. LAB POCT ORDERABLES - DEVICE Performing Organization Address City/[facility]/ZIP Code Phon e Number [facility] - [address] [place], [place] [address] [facility] [place] [address] [facility] [address] [facility] Lactate, POCT (02/16/2021 9:37 AM CDT) P athologist Signature Lactate, POCT 0.52 0.50 - 02/16/2021 [facility] 2.20 9:49 AM CDT mmol/L Sample Site, Venline 02/16/2021 [facility] POCT 9:49 AM CDT Specimen Anatomical Collection Method Collection Time Receive d Time (Source) Location / / Volume Laterality Blood 02/16/2021 9:37 AM 9:49 CDT AM CDT Unknown Provider LAB POCT ORDERABLES - DEVICE Performing Organization Address [facility] Phon e Number POC [facility] [address] [place] [address] [facility] [address] [facility] [address] [facility] (ABNORMAL) Dipstick, POCT, Urine (02/16/2021 9:37 AM CDT) Patholo gist Method Time Signature Glucose, Negative Negative 02/16/2021 [facility] POCT, U mg/dL 9:39 AM CDT Ketone, POCT, Negative Negative 02/16/2021 [facility] U mg/dL 9:39 AM CDT Specific 1.020 1.005 - 02/16/2021 [facility] [place], 1.030 9:39 AM CDT POCT, U Blood, POCT, Trace (A) Negative 02/16/2021 [facility] U 9:39 AM CDT pH, POCT, 5.5 5.0 - 8.0 02/16/2021 [facility] Urine 9:39 AM CDT Protein, Trace (A) Negative 02/16/2021 [facility] POCT, U mg/dL 9:39 AM CDT Nitrites, Negative Negative 02/16/2021 [facility] POCT, U 9:39 AM CDT Leukocytes, Negative Negative 02/16/2021 [facility] POCT, U 9:39 AM CDT Specimen Anatomical Collection Method Collection Time Receive d Time (Source) Location / / Volume Laterality Urine 02/16/2021 9:37 AM 9:39 CDT AM CDT Unknown Provider LAB POCT ORDERABLES - DEVICE Performing Organization Address City/[facility]/ZIP Code Phon e Number POC RST [facility] [address] [place] [address] [place] [address] [facility] [address] [facility] pH, Urine (02/16/2021 9:34 AM CDT) athologist Signature pH, U 4.8 4.5 - 8.0 02/16/2021 11:31 DTL AM CDT Specimen Anatomical Collection Method Collection Time Receive d Time (Source) Location / / Volume Laterality Urine 02/16/2021 9:34 AM CDT 10:30 AM CDT Cristian Linda M.D. LAB URINE ORDERABLES Performing Organization Address City/[facility]/ZIP Code Phon e Number [facility] [address] [place], [place] [address] [facility] [place] [address] [facility] [address] [facility] Osmolality, Urine (02/16/2021 9:34 AM CDT) P athologist Signature Osmolality, U 585 150 - 1150 02/16/2021 [facility] mOsm/kg 11:31 AM CDT Specimen Anatomical Collection Method Collection Time Receive d Time (Source) Location / / Volume Laterality Urine 02/16/2021 9:34 AM 1 CDT 10:30 AM CDT Cristian Linda M.D. LAB URINE ORDERABLES Performing Organization Address City/[facility]/ZIP Code Phon e Number [facility] - [address] [place], [place] [address] [place] [address] [place] [address] Laboratories-[address] Microscopic Automated (02/16/2021 9:34 AM CDT) P athologist Signature Microscopy Normal 02/16/2021 [facility] 11:00 AM CDT WBC 1-3 /hpf 02/16/2021 [facility] 11:00 AM CDT Comment: ----REFERENCE VALUE---- 1-3 ??(Males) 1-10 (Females) Squamous Epithelial Cells, U 1-3 /hpf 02/16/2021 11:00 AM CDT DTL Specimen Anatomical Collection Method Collection Time Receive d Time (Source) Location / / Volume Laterality Urine 02/16/2021 9:34 AM CDT 10:30 AM CDT Cristian Linda M.D. LAB URINE ORDERABLES Performing Organization Address City/State/ZIP Code Phon e Number [facility] - [address] [place] [address] [facility]-[address] (ABNORMAL) Dipstick, Urine (02/16/2021 9:34 AM CDT) Patholo gist Method Time Signature Hemoglobin, Negative Negative 02/16/2021 [facility] QL 11:00 AM CDT Leukocyte Small (A) Negative 02/16/2021 [facility] Esterase, U 11:00 AM CDT Nitrite, U Negative Negative 02/16/2021 [facility] 11:00 AM CDT Ketones, U Negative Negative 02/16/2021 [facility] mg/dL 11:00 AM CDT Glucose, U Negative Negative 02/16/2021 [facility] mg/dL 11:00 AM CDT Specimen Anatomical Collection Method Collection Time Receive d Time (Source) Location / / Volume Laterality Urine 02/16/2021 9:34 AM CDT 10:30 AM CDT Cristian Linda M.D. LAB URINE ORDERABLES Performing Organization Address City/[facility] Phon e Number [facility] - [address] [place] [address] Bacterial Culture, Aerobic + Susc, Urine (02/16/2021 9:34 AM CDT) [employer] Method Time Signature Urine Culture No growth 02/17/2021 DTL after 1 day 8:08 AM CDT of incubation. Specimen Anatomical Collection Method Collection Time Receive d Time (Source) Location / / Volume Laterality Urine (Urine, 02/16/2021 9:34 AM 02/17/20 Midstream) CDT 10:42 AM CDT Comment: Specimen Source Site: Urine Cristian Linda M.D. LAB MICROBIOLOGY - GENERAL O RDERABLES Performing Organization Address City/[facility] Code Phon e Number [facility] - [address] [place] [address] [place] [id number] Urinalysis with Microscopic: Urine, Midstream (02/16/2021 9:34 AM CDT) [employer] Method Time Signature Source Urine, Urine, 02/16/2021 DTL Midstream 10:30 AM CDT Color, U Yellow 02/16/2021 DTL 10:30 AM CDT Clarity, U Clear 02/16/2021 DTL 10:30 AM CDT Protein, U 17 <26 mg/dL 02/16/2021 DTL 11:05 AM CDT Protein/Osmol 0.29 <0.42 02/16/2021 DTL ality ratio 11:31 AM CDT Predicted 24 218 mg/24 h 02/16/2021 DTL Hr Protein 11:31 AM CDT Predicted 54-882 mg/24 h 02/16/2021 DTL Range 11:31 AM CDT Specimen Anatomical Collection Method Collection Time Receive d Time (Source) Location / / Volume Laterality Urine (Urine, 02/16/2021 9:34 AM 02/17/20 Midstream) CDT 10:30 AM CDT Cristian Linda M.D. LAB URINE ORDERABLES Performing Organization Address City/[facility] Phon e Number [facility] [address] DTL [place] [address] [facility]-[place] [address] (ABNORMAL) Venous Blood Gas and Electrolytes CG8+, POCT (02/16/2021 9:33 AM CDT) athologist Signature Sample Site, [facility] 02/16/2021 PCSM POCT 9:49 AM CDT Comment: ----ADDITIONAL INFORMATION---- Performed at the Point of Care pH, Venous, POCT, B 7.37 7.32 - 7.43 02/16/2021 9:49 AM CDT PCSM Comment: ----ADDITIONAL INFORMATION---- Performed at the Point of Care pCO2, Venous, POCT, B 48 41 - 51 mm Hg 02/16/2021 9:4 9 AM CDT PCSM Comment: ----ADDITIONAL INFORMATION---- Performed at the Point of Care pO2, Venous, POCT, B 34 Not Applicable mm Hg 02/17/20 9:49 AM CDT PCSM Comment: ----ADDITIONAL INFORMATION---- Performed at the Point of Care Base Excess, Venous, POCT, B 2 Not Applicable mmol/L 02/16/2021 9:49 AM CDT PCSM Comment: ----ADDITIONAL INFORMATION---- Performed at the Point of Care HCO3, Venous, POCT, B 28 Not Applicable mmol/L 2020 9:49 AM CDT PCSM Comment: ----ADDITIONAL INFORMATION---- Performed at the Point of Care Sodium, POCT, B 139 135 - 145 mmol/L 02/16/2021 9:49 A M CDT PCSM Comment: ----ADDITIONAL INFORMATION---- Performed at the Point of Care Potassium, POCT, B 4.1 3.6 - 5.2 mmol/L 02/16/2021 9:4 9 AM CDT PCSM Comment: ----ADDITIONAL INFORMATION---- Performed at the Point of Care Calcium, Ionized, POCT, B 4.80 4.65 - 5.30 mg/dL 2020 9:49 AM CDT PCSM Comment: ----ADDITIONAL INFORMATION---- Performed at the Point of Care Glucose, POCT, B 122 70 - 140 mg/dL 02/16/2021 9:49 AM CDT PCSM Comment: ----ADDITIONAL INFORMATION---- Performed at the Point of Care Hematocrit, POCT, B 19.0 (L) 35.5 - 44.9 % 02/16/2021 9:49 AM CDT PCSM Comment: ----ADDITIONAL INFORMATION---- Performed at the Point of Care Specimen Anatomical Collection Method Collection Time Receive d Time (Source) Location / / Volume Laterality Blood 02/16/2021 9:33 AM 9:49 CDT AM CDT Unknown Provider LAB POCT ORDERABLES - DEVICE Performing Organization Address City/[facility] Phon e Number POC [facility] INPATIENT [address] [place], [place] [address] [place] [address] [facility] [address] Type and Screen (with reflex Antibody ID) (02/16/2021 9:33 AM CDT) P athologist Signature ABORh CANCELED 02/16/2021 STRM 9:56 AM CDT Comment: Result canceled by the ancillar y. Antibody Screen CANCELED 02/16/2021 9:56 AM CDT S TRM Comment: Result canceled by the ancillar y. Type & Screen Expiration CANCELED 02/16/2021 9:56 AM CDT STRM Comment: Result canceled by the ancillar y. Testing Location CANCELED 02/16/2021 9:56 AM CDT STRM Comment: REVISED RESULTS ----PREVIOUSLY REPORTED ---- [place], Flagged as: Normal (Reported 02/16/2021 09:54) Specimen Anatomical Collection Method Collection Time Receive d Time (Source) Location / / Volume Laterality Blood (Blood, 02/16/2021 9:33 AM 02/17/20 9:54 Venous) CDT AM CDT Narrative [facility] - [facility] - 02/16/2021 9:56 AM CDT Type and Screen, RBC was cancelled on 02/16/2021 at 09:56; Cancelled by [email or web address] Cristian Linda M.D. LAB BLOOD BANK TEST ORDERABL ES Performing Organization Address City/[facility] Phon e Number [facility] - [address] [place], [place] [address] [facility] [place] [address] Laboratories-[facility] [address] [facility] APTT (Activated Partial Thromboplastin Time) (02/16/2021 9:33 AM CDT) P athologist Signature Activated 32 25 - 37 sec 02/16/2021 STMA Partial 10:00 AM CDT Thrombopl Time, P Specimen Anatomical Collection Method Collection Time Receive d Time (Source) Location / / Volume Laterality Blood (Blood, 02/16/2021 9:33 AM 02/17/20 9:44 Venous) CDT AM CDT Cristian Linda M.D. LAB BLOOD ADD-ON Performing Organization Address City/State/ZIP Code Phon e Number [facility] - [address] [address] [facility] [address] [facility] (ABNORMAL) Prothrombin Time (PT) (02/16/2021 9:33 AM CDT) [facility] Time Signature Prothrombin 13.5 (H) 9.4 - 12.5 02/16/2021 [facility] Time, P sec 9:57 AM CDT INR 1.2 0.9 - 1.1 02/16/2021 [facility] 9[facility]57 AM CDT Comment: ----ADDITIONAL INFORMATION---- Standard intensity warfarin therapeutic range: 2.0 to 3.0 ?? High intensity warfarin therapeutic rang e: 2.5 to 3.5 Specimen Anatomical Collection Method Collection Time Receive d Time (Source) Location / / Volume Laterality Blood (Blood, 02/16/2021 9:33 AM 02/17/20 9:44 Venous) CDT AM CDT Cristian Linda M.D. LAB BLOOD ADD-ON Performing Organization Address City/State/ZIP Code Phon e Number [facility] - [address] [address] [facility] [address] [facility] Lipase (02/16/2021 9:33 AM CDT) P athologist Signature Lipase, S 24 13 - 60 U/L 02/16/2021 DTL 10:27 AM CDT Specimen Anatomical Collection Method Collection Time Receive d Time (Source) Location / / Volume Laterality Blood (Blood, 02/16/2021 9:33 AM 02/17/20 Venous) CDT 10:05 AM CDT Cristian Linda M.D. LAB BLOOD ADD-ON Performing Organization Address City/[facility] Phon e Number [facility] - 200 [place], [place] [address] [place] [address] Hepatic Function Panel (02/16/2021 9:33 AM CDT) Patholo gist Method Time Signature Bilirubin, Total, S 0.9 <=1.2 02/16/2021 DTL mg/dL 10:27 AM CDT Bilirubin, Direct, S 0.3 0.0 - 0.3 02/16/2021 DTL mg/dL 10:27 AM CDT Aspartate 33 8 - 43 02/16/2021 DTL Aminotransferase U/L 10:27 AM CDT (AST), S Alanine 12 7 - 45 02/16/2021 DTL Aminotransferase U/L 10:27 AM CDT (ALT), S Alkaline 45 35 - 104 02/16/2021 DTL Phosphatase, S U/L 10:27 AM CDT Albumin, S 4.5 3.5 - 5.0 02/16/2021 DTL g/dL 10:27 AM CDT Protein, Total, S 6.3 6.3 - 7.9 02/16/2021 DTL g/dL 10:27 AM CDT Specimen Anatomical Collection Method Collection Time Receive d Time (Source) Location / / Volume Laterality Blood (Blood, 02/16/2021 9:33 AM 02/17/20 Venous) CDT 10:05 AM CDT Cristian Linda M.D. LAB BLOOD ADD-ON Performing Organization Address City/State/[facility] Phon e Number [facility] - 200 [place], [place] [address] [place] [address] [place], [place] [id number] [place] [address] hCG (Human Chorionic Gonadotropin), Quantitative, (02/16/2021 9:33 AM CDT) athologist Signature HCG, 0.5 <5 IU/L 02/16/2021 STMA Quantitative, 10:05 AM CDT , P Comment: Zenaida- and postmenopausal females may hav e detectable hCG concentrations (<=14 IU/L) due to pituit kasie production of hCG. ??Serum FSH measurement may aid in ruling out in this population. Specimen Anatomical Collection Method Collection Time Receive d Time (Source) Location / / Volume Laterality Blood (Blood, 02/16/2021 9:33 AM 02/17/20 9:44 Venous) CDT AM CDT Cristian Linda M.D. LAB BLOOD ADD-ON Performing Organization Address City/State/ZIP Code Phon e Number [facility] - [address] [place], [place] [address] [facility] [place] [address] Laboratories-[facility] [address] (ABNORMAL) Basic Metabolic Panel (02/16/2021 9:33 AM CDT) athologist Signature Potassium, P 4.3 3.6 - 5.2 02/16/2021 STMA mmol/L 10:02 AM CDT Sodium, P 138 135 - 145 02/16/2021 STMA mmol/L 10:02 AM CDT Chloride, P 102 98 - 107 02/16/2021 STMA mmol/L 10:02 AM CDT Bicarbonate, P 27 22 - 29 02/16/2021 STMA mmol/L 10:02 AM CDT Anion Gap, P 9 7 - 15 02/16/2021 STMA 10:02 AM CDT BUN (Blood Urea 24 (H) 6 - 21 02/16/2021 STMA Nitrogen), P mg/dL 10:02 AM CDT Creatinine 0.94 0.59 - 02/16/2021 STMA 1.04 mg/dL 10:02 AM CDT eGFR-Black/Afri 81 >=60 02/16/2021 STMA can Faroese mL/min/BSA 10:02 AM CDT Comment: ----ADDITIONAL INFORMATION---- Estimated GFR calculated using the 2009 CKD_EPI creatinine equation. eGFR Non-Black/ 70 >=60 mL/min/BSA 02/16/2021 10:02 AM CDT STMA Comment: ----ADDITIONAL INFORMATION---- Estimated GFR calculated using the 2009 CKD_EPI creatinine equation. Calcium, Total, P 8.4 (L) 8.6 - 10.0 mg/dL 02/16/2021 10:0 2 AM CDT STMA Glucose, P 123 70 - 140 mg/dL 02/16/2021 10:02 AM CDT [facility] Specimen Anatomical Collection Method Collection Time Receive d Time (Source) Location / / Volume Laterality Blood (Blood, 02/16/2021 9:33 AM 02/17/20 9:44 Venous) CDT AM CDT Cristian Linda M.D. LAB BLOOD ADD-ON Performing Organization Address City/State/ZIP Code Phon e Number [facility] - [address] [place] [address] [place] [address] Laboratories-[facility] 200 [facility] (ABNORMAL) CBC with Differential, Blood (02/16/2021 9:33 AM CDT) [facility] gist Method Time Signature Hemoglobin 6.7 (L) 11.6 - 02/16/2021 STMA 15.0 g/dL 9:46 AM CDT Hematocrit 21.6 (L) 35.5 - 02/16/2021 STMA 44.9 % 9:46 AM CDT Erythrocytes 2.35 (L) 3.92 - 02/16/2021 STMA 5.13 9:46 AM CDT x10(12)/L MCV 91.9 78.2 - 02/16/2021 STMA 97.9 fL 9:46 AM CDT RBC Distrib Width 27.7 (H) 12.2 - 02/16/2021 STMA 16.1 % 9:46 AM CDT Platelet Count 90 (L) 157 - 371 02/16/2021 STMA x10(9)/L 9:46 AM CDT Leukocytes 3.4 3.4 - 9.6 02/16/2021 STMA x10(9)/L 10:51 AM CDT Comment: Results confirmed by smear. Specimen Anatomical Collection Method Collection Time Receive d Time (Source) Location / / Volume Laterality Blood (Blood, 02/16/2021 9:33 AM 02/17/20 9:44 Venous) CDT AM CDT Cristian Linda M.D. LAB BLOOD ADD-ON Performing Organization Address City/[facility] Phon e Number [facility] - [address] [place], [place] [address] [facility] STMA [place], [place] [phone] [place] [address] [address] [facility] Type and Screen (with reflex Antibody ID) (02/16/2021 7:11 AM CDT) P athologist Signature ABORh CANCELED 02/16/2021 STRM 10:49 AM CDT Comment: Result canceled by the ancillar y. Antibody Screen CANCELED 02/16/2021 10:49 AM CDT STRM Comment: Result canceled by the ancillar y. Type & Screen Expiration CANCELED 02/16/2021 10:4 9 AM CDT STRM Comment: Result canceled by the ancillar y. Testing Location CANCELED 02/16/2021 10:49 AM CDT STRM Comment: REVISED RESULTS ----PREVIOUSLY REPORTED ---- [place], Flagged as: Normal (Reported 02/16/2021 10:47) Specimen Anatomical Collection Method Collection Time Receive d Time (Source) Location / / Volume Laterality Blood (Blood, 02/16/2021 7:11 AM 02/17/20 21 Venous) CDT 10:47 AM CDT Narrative [facility] - [facility] - 02/16/2021 10:49 AM CDT Type and Screen, RBC was cancelled on 02/16/2021 at 10:49; Cancelled by [place] Cristian Linda M.D. LAB BLOOD BANK TEST ORDERABL ES Performing Organization Address [facility] Phon e Number [facility] - [address] [place] [address] [facility] [place], [place] [phone] [place] [address] documented in this encounter Visit Diagnoses Diagnosis Abdominal Pain - Primary Abdominal Pain Splenomegaly Acquired Anemia documented in this encounter Admitting Diagnoses Diagnosis Abdominal Pain documented in this encounter Administered Medications Inactive Administered Medications - up to 3 most recent administrations Medication Order MAR Action Action Date Dose Rate Site fentaNYL injection 75 mcg Given 02/16/2021 10:49 AM CDT 75 mcg (SUBLIMAZE) 75 mcg, intravenous, Every 1 hour PRN, severe pain or score 7-10 of 10, Starting on Fri02/16/21 at 0911, For 4 doses Given 02/16/2021 9:37 AM CDT 75 mcg iohexoL 300 mg iodine/mL solution 1-200 mL Given 02/16/2021 10:40 AM CDT 140 mL (OMNIPAQUE) 1-200 mL, intravenous, Once in imaging, contrast, Starting on Fri02/16/21 at 1039, For 1 dose, Imaging Protocol Orders, Dose per Radiant Medication Guidelines NaCl 0.9% infusion 20-500 mL/hr, intravenous, Once as needed, Between Uni ts of Blood Products, Starting on Fri02/16/21 at 1010, For 1 do se, Infuse at the same rate as the blood infusion until tubing cleared. Nurse may reduce rate to 20 mL/hour or as otherwise directed until next blood infusion arriv es then discontinue when infusion complete. sodium chloride (PF) 0.9 % injection 1-1 00 mL Given 02/16/2021 10:40 AM CDT 50 mL 1-100 mL, intravenous, Once, On Fri02/16/21 at 1040, For 1 dose, Imaging Protocol Orders documented in this encounter Active and Recently Administered Medications Times are shown in CDT. Scheduled Medication Order 02/14/2021 02/15/2021 02/16/2021 sodium chloride (PF) 0.9 % injection 1-100 mL (COMPLETED) 1040 (Given - Provider: Glenis Espino R.N.) 1-100 mL, intravenous, Once, On Fri at 1040, For 1 dose, Imaging Protocol Orders PRN Medication Order 02/14/2021 02/15/2021 02/16/2021 fentaNYL injection 75 mcg (SUBLIMAZE) 0937 (Given - Provider: Meli Oliver R.N.)1049 (Given - Provider: Meli Oliver R.N.) 75 mcg, intravenous, Every 1 hour PRN, s evere pain or score 7-10 of 10, Starting on Fri02/16/21 at 0911, For 4 doses iohexoL 300 mg iodine/mL solution 1-200 mL (OMNIPAQUE) (COMPLETE D) 1040 (Given - Provider: Glenis Espino R.N.) 1-200 mL, intravenous, Once in imaging, contrast, Starting on Fri02/16/21 at 1039, For 1 dose, Imaging Protocol Orders, Dose per Radiant Medication Guidelines NaCl 0.9% infusion 20-500 mL/hr, intravenous, Once as neede d, Between Units of Blood Products, Starting on Fri02/16/21 at 1010, For 1 dose, Infuse at the same rate as the blood infusion until tubing cleared. Nurse may redu ce rate to 20 mL/hour or as otherwise di rected until next blood infusion arrives then discontinue when infusion complete. documented in this encounter Additional Health Concerns Infection Onset Date Last Indicated Resolved Time COVID19 Pending 02/16/2021 02/16/2021 02/16/2021 11:25 AM CDT documented as of this encounter Care Teams Management Lecturer Relationship Specialty Start Date End Date None Reported, Pcp PCP - General Family Medicine 02/16/21 documented as of this encounter
--- OUTSIDE RECORDS SUMMARY | 2022-05-02 12:08 | XMS_ITS | Encounter Summary ---
:1970 Author Organization [facility] Address [address] [place] [address] Care Team Providers Name Role Phone Unavailable Primary Care Provider Unavailable Reason for Referral Outpatient (Routine) - Closed Specialty Diagnoses / Procedures Referred By Contact Refer red To Contact Hematology Oncology Janusz Govea [place] R egion M.B.B.SZahraa [address] [place] [phone] Referral ID Status Reason Start Date Expiration Date Visits Requ ested Visits Authorized [id number] Closed 02/12/2021 02/12/2022 1 1 Scheduling Instructions 8 am on 02/16 Encounter Details Date Type Department Care Team Description 02/12/2021 Orders Only Division of Hematology Janusz Govea M yelofibrosis (HCC) in [place], M.B.B.S. 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 LAB BLOOD ADD-ON Performing Organization Address City/[facility] Phon e Number [facility] - [address] (ABNORMAL) LD (Lactate Dehydrogenase) (02/16/2021 7:14 AM CDT) [facility] Method Time Signature Lactate 829 (H) 122 - 222 02/16/2021 DTL Dehydrogenase U/L 8:20 AM CDT (LD), S Specimen Anatomical Collection Method Collection Time Receive d Time (Source) Location / / Volume Laterality Blood (Blood, 02/16/2021 7:14 AM 02/17/20 7:43 Venous) CDT AM CDT Reemanv Xuan M.B.B.S. LAB BLOOD NON ADD-ON Performing Organization Address City/[facility] Phon e Number [facility] - 200 [place], [place] [address] [facility] [address] (ABNORMAL) Morphology Evaluation (Special Smear) (02/16/2021 7:14 AM CDT) [facility] Method Time Signature Neutrophilic Segs 81 (H) 50 - 75 % 02/16/2021 DHPM and Bands 9:29 AM CDT Lymphocytes 7 (L) 18 - 42 % 02/16/2021 DHPM 9:29 AM CDT Monocytes 2 2 - 11 % 02/16/2021 DHPM 9:29 AM CDT Metamyelocytes 1 (H) <1 % 02/16/2021 [facility] 9:29 AM CDT Myelocytes 9 (H) <0.5 % 02/16/2021 [facility] 9:29 AM CDT Nucleated RBC 6 /100 WBC 02/16/2021 [facility] 9:29 AM CDT Manual Absolute 2.84 1.56 - 02/16/2021 [facility] Neutrophil Count 6.45 9:29 AM CDT x10(9)/L Comment: ----ADDITIONAL INFORMATION---- The manual absolute neutrophil count is derived from a manual differential count and therefore is not exactly comparable to the automated absolute halie trophil count. Interpretation Marked dacrocytes are present. 12/2020 9:29 AM CDT PM Reviewed by: Liz 02/16/2021 9:29 AM CDT [facility] Specimen Anatomical Collection Method Collection Time Receive d Time (Source) Location / / Volume Laterality Blood (Blood, 02/16/2021 7:14 AM 02/17/20 7:49 Venous) CDT AM CDT Janusz Ardon LAB BLOOD ADD-ON Performing Organization Address City/State/[facility] Code Phon e Number [facility] - 200 [place], [place] [address] [place] [address] [facility] 200 [facility] (ABNORMAL) Comprehensive Metabolic Panel (02/16/2021 7:14 AM CDT) P athologist Signature Potassium, S 4.7 3.6 - 5.2 02/16/2021 DTL mmol/L 8:20 AM CDT Sodium, S 137 135 - 145 02/16/2021 DTL mmol/L 8:20 AM CDT Chloride, S 101 98 - 107 02/16/2021 DTL mmol/L 8:20 AM CDT Bicarbonate, S 27 22 - 29 02/16/2021 DTL mmol/L 8:20 AM CDT Anion Gap 9 7 - 15 02/16/2021 DTL 8:20 AM CDT BUN (Blood Urea 25 (H) 6 - 21 02/16/2021 DTL Nitrogen), S mg/dL 8:20 AM CDT Creatinine 1.04 0.59 - 02/16/2021 DTL 1.04 mg/dL 8:20 AM CDT eGFR-Non 62 >=60 02/16/2021 DTL Black/ mL/min/BSA 8:20 AM CDT Danish Comment: ----ADDITIONAL INFORMATION---- Estimated GFR calculated using the 2009 CKD_EPI creatinine equation. eGFR-Black/ 71 >=60 mL/min/BSA 2020 8:20 AM CDT DTL Comment: ----ADDITIONAL INFORMATION---- Estimated GFR calculated using the 2009 CKD_EPI creatinine equation. Calcium, Total, S 8.8 8.6 - 10.0 mg/dL 02/16/2021 8:20 AM CDT DTL Glucose, S 133 70 - 140 mg/dL 02/16/2021 8:20 AM CDT D TL Protein, Total, S 6.3 6.3 - 7.9 g/dL 02/16/2021 8:20 A M CDT DTL Albumin, S 4.5 3.5 - 5.0 g/dL 02/16/2021 8:20 AM CDT D TL Aspartate Aminotransferase (AST), 34 8 - 43 U/L 02/16 8:20 AM CDT DTL S Alkaline Phosphatase, S 47 35 - 104 U/L 02/16/2021 8: 20 AM CDT DTL Alanine Aminotransferase (ALT), S 13 7 - 45 U/L 02/16 8:20 AM CDT DTL Bilirubin, Total, S 1.1 <=1.2 mg/dL 02/16/2021 8:20 AM CDT DTL Specimen Anatomical Collection Method Collection Time Receive d Time (Source) Location / / Volume Laterality Blood (Blood, 02/16/2021 7:14 AM 02/17/20 7:43 Venous) CDT AM CDT Janusz Ardon LAB BLOOD ADD-ON Performing Organization Address City/State/ZIP Code Phon e Number [facility] - [address] [place], [place] [address] [facility] [place] [address] Laboratories-[facility] [address] (ABNORMAL) CBC with Differential, Blood (02/16/2021 7:14 AM CDT) [facility] gist Method Time Signature Hemoglobin 6.8 (L) 11.6 - 02/16/2021 DTL 15.0 g/dL 8:10 AM CDT Hematocrit 22.6 (L) 35.5 - 02/16/2021 DTL 44.9 % 8:10 AM CDT Erythrocytes 2.47 (L) 3.92 - 02/16/2021 DTL 5.13 8:10 AM CDT x10(12)/L MCV 91.5 78.2 - 02/16/2021 DTL 97.9 fL 8:10 AM CDT RBC Distrib 28.1 (H) 12.2 - 02/16/2021 DTL Width 16.1 % 8:10 AM CDT Platelet Count 79 (L) 157 - 371 02/16/2021 DTL x10(9)/L 9:25 AM CDT Leukocytes 3.5 3.4 - 9.6 02/16/2021 DTL x10(9)/L 9:29 AM CDT Neutrophils SeeComment 1.56 - 02/16/2021 DTL 6.45 9:29 AM CDT x10(9)/L Comment: Auto-diff results not valid. Se e manual differential. Specimen Anatomical Collection Method Collection Time Receive d Time (Source) Location / / Volume Laterality Blood (Blood, 02/16/2021 7:14 AM 02/17/20 21 7:49 Venous) CDT AM CDT Janusz Ardon LAB BLOOD ADD-ON Performing Organization Address City/State/ZIP Code Phon e Number [facility] - [address] [place], [place] [address] [facility] [place] [address] [facility] [address] documented in this encounter Visit Diagnoses Diagnosis Myelofibrosis (HCC) - Primary documented in this encounter
--- OUTSIDE RECORDS SUMMARY | 2022-05-02 12:08 | XMS_ITS | Encounter Summary ---
:1970 Author Organization [facility] Address [address] [place] [address] Care Team Providers Name Role Phone None Reported, Pcp Primary Care Provider Unavailable Encounter Details Date Type Department Care Team Description 02/16/2021 Hospital Encounter Department of Gangat, Myelofib rosis ([facility]) Laboratory Medicine [facility], and [facility] in [address] [place] [id number] [place], [place] [phone] (Work) [phone] Social History Tobacco Use Types Packs/Day Years [...] Date Recorded 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 CBC WITH Routine 02/16/2021 7:14 Myelofibrosis (HCC) Resul ts for this DIFFERENTIAL, B AM CDT procedure ar e in the results section. TYPE AND SCREEN Routine 02/16/2021 7:14 Myelofibrosis (HCC) Re sults for this AM CDT procedure are i n the results section. URIC ACID, S/P Routine 02/16/2021 7:14 Myelofibrosis (HCC) Res ults for this AM CDT procedure are i n the results section. LACTATE DEHYDROGENASE Routine 02/16/2021 7:14 Myelofibrosis (H CC) Results for this (LD), S AM CDT procedure are i n the results section. COMPREHENSIVE Routine 02/16/2021 7:14 Myelofibrosis (HCC) Resu lts for this METABOLIC PANEL, S/P AM CDT procedu re are in the results section. documented in this encounter Results Type and Screen (with reflex Antibody ID) (02/16/2021 7:14 AM CDT) [facility] Method Time Signature ABORh A Pos Not 02/16/2021 ETRM applicable 10:16 AM CDT Antibody Negative Negative 02/16/2021 ETRM Screen 10:10 AM CDT Type & Screen 02/19/2021 02/16/2021 ETRM Expiration 23:59 10:10 AM CDT Testing Deidra DEFAULT 02/16/2021 ETRM Location 7:49 AM CDT Specimen Anatomical Collection Method Collection Time Receive d Time (Source) Location / / Volume Laterality Blood (Blood, 02/16/2021 7:14 AM 02/17/20 7:49 Venous) CDT AM CDT Janusz Higgins.B.S. LAB BLOOD BANK TEST ORDERABL ES Performing Organization Address City/[facility] Phon e Number [facility] - [address] [place] [address] 05 [facility] ETRM [place], [place] [id number] [place] [address] Uric Acid (02/16/2021 7:14 AM CDT) P athologist Signature Uric Acid, S 4.6 2.7 - 6.1 02/16/2021 DTL mg/dL 8:20 AM CDT Specimen Anatomical Collection Method Collection Time Receive d Time (Source) Location / / Volume Laterality Blood (Blood, 02/16/2021 7:14 AM 02/17/20 7:43 Venous) CDT AM CDT Janusz HayesB.B.S. LAB BLOOD ADD-ON Performing Organization Address City/[facility] Code Phon e Number [facility] - 200 [place], [place] [address] [facility] [place] [address] (ABNORMAL) LD (Lactate Dehydrogenase) (02/16/2021 7:14 AM CDT) Patholo gist Method Time Signature Lactate 829 (H) 122 - 222 02/16/2021 DTL Dehydrogenase U/L 8:20 AM CDT (LD), S Specimen Anatomical Collection Method Collection Time Receive d Time (Source) Location / / Volume Laterality Blood (Blood, 02/16/2021 7:14 AM 02/17/20 21 7:43 Venous) CDT AM CDT Janusz AlexandraSZahraa LAB BLOOD NON ADD-ON Performing Organization Address City/[facility] Phon e Number [facility] - [address] (ABNORMAL) Morphology Evaluation (Special Smear) (02/16/2021 7:14 AM CDT) Patholo gist Method Time Signature Neutrophilic Segs 81 (H) 50 - 75 % 02/16/2021 [facility] 9:29 AM CDT Lymphocytes 7 (L) 18 - 42 % 02/16/2021 [facility] 9:29 AM CDT Monocytes 2 2 - 11 % 02/16/2021 DH 9:29 AM CDT Metamyelocytes 1 (H) <1 % 02/16/2021 [facility] 9:29 AM CDT Myelocytes 9 (H) <0.5 % 02/16/2021 [facility] 9:29 AM CDT Nucleated RBC 6 /100 WBC 02/16/2021 PM 9:29 AM CDT Manual Absolute 2.84 1.56 - 02/16/2021 [facility] Neutrophil Count 6.45 9:29 AM CDT x10(9)/L Comment: ----ADDITIONAL INFORMATION---- The manual absolute neutrophil count is derived from a manual differential count and therefore is not exactly comparable to the automated absolute halie trophil count. Interpretation Marked dacrocytes are present. 12/2020 9:29 AM CDT [facility] Reviewed by: Liz 02/16/2021 9:29 AM CDT [facility] Specimen Anatomical Collection Method Collection Time Receive d Time (Source) Location / / Volume Laterality Blood (Blood, 02/16/2021 7:14 AM 02/17/20 21 7:49 Venous) CDT AM CDT Janusz AlexandraSZahraa LAB BLOOD ADD-ON Performing Organization Address City/[facility] Code Phon e Number [facility] - 200 [place] [phone] 05 [facility] [place] [address] (ABNORMAL) Comprehensive Metabolic Panel (02/16/2021 7:14 AM [...] 02/16/2021 DTL Black/ mL/min/BSA 8:20 AM CDT Iranian Comment: ----ADDITIONAL INFORMATION---- Estimated GFR calculated using [...] Blood (Blood, 02/16/2021 7:14 AM 02/17/20 21 7:43 Venous) CDT AM CDT Janusz ArringtonBZahraaSZahraa LAB BLOOD ADD-ON Performing Organization Address City/State/ZIP Code Phon e Number [facility] - [address] [place] [address] [facility] [place] [address] [facility] 200 [facility] (ABNORMAL) CBC with Differential, Blood (02/16/2021 7:14 AM CDT) [facility] gist Method Time Signature Hemoglobin 6.8 [...] 21 7:49 Venous) CDT AM CDT Janusz ArringtonBZahraaS. LAB BLOOD ADD-ON Performing Organization Address City/State/ZIP Code Phon e Number [facility] - [address] [place], [place] [address] [facility] [place] [address] [facility] [address] documented in this encounter Visit Diagnoses Diagnosis Myelofibrosis (HCC) documented in this encounter Care Teams Hvac R Tech Relationship Specialty Start Date End Date None Reported, Pcp PCP - General Family Medicine 02/16/21 documented as of this encounter
--- OUTSIDE RECORDS SUMMARY | 2022-05-02 12:08 | XMS_ITS | Encounter Summary ---
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 Additional Health Concerns Infection Onset Date Last Indicated Resolved Time COVID19 Pending 02/16/2021 02/16/2021 02/16/2021 11:25 AM CDT COVID19 Pending 06/06/2021 06/06/2021 06/06/2021 10:01 PM WAREHOUSE PACKER COVID19 Pending 06/29/2021 07/15/2021 07/15/2021 2:24 PM WAREHOUSE PACKER COVID19 Pending 07/22/2021 07/22/2021 07/22/2021 4:53 PM WAREHOUSE PACKER documented as of this encounter Care Teams Traffic Expert Relationship Specialty Start Date End Date None Reported, Pcp PCP - General Family Medicine 02/16/21 documented as of this encounter
--- OUTSIDE RECORDS SUMMARY | 2022-05-02 12:08 | XMS_ITS | Encounter Summary ---
:1970 Author Organization [facility] Address [address] [place] [address] Care Team Providers Name Role Phone None Reported, Pcp Primary Care Provider Unavailable Reason for Visit Reason Comments Appointment Encounter Details Date Type Department Care Team Description 02/12/2021 Clinical Communication Division of Hematology Janusz Govea, Appointment in [facility] milton Holt.S. 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 Patient would like to see you this week ( except tomorrow, Friday02/13/21). She is having increased issues with her spleen and they are hoping you can add her to your calendar. 1) Is there a day this week, aside from tomorrow we can add patient to your calendar? Thanks, Zeinab LARSEN documented in 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 Additional Health Concerns Infection Onset Date Last Indicated Resolved Time COVID19 Pending 02/16/2021 02/16/2021 02/16/2021 11:25 AM CDT documented as of this encounter Care Teams Bulker Relationship Specialty Start Date End Date None Reported, Pcp PCP - General Family Medicine 02/16/21 documented as of this encounter
--- OUTSIDE RECORDS SUMMARY | 2022-05-02 12:08 | XMS_ITS | Encounter Summary ---
:1970 Author Organization [facility] Address [address] [place] [address] Care Team Providers Name Role Phone Unavailable Primary Care Provider Unavailable Reason for Referral Outpatient (Routine) - Closed Specialty Diagnoses / Procedures Referred By Contact Refer red To Contact Hematology Oncology Diagnoses Myelofibrosis (HCC) [facility] MurphyB.SZahraa [address] [place] [phone] Referral ID Status Reason Start Date Expiration Date Visits Requ ested Visits Authorized [id number] Closed 08/14/2020 08/14/2021 1 1 Scheduling Instructions Please schedule with Dr. 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 Plan of Treatment Scheduled Referrals Name Type Priority Associated Diagnoses Order S [facility] Hematology office Outpatient Referral Routine Myelofibrosis (H CC) Expected: visit (clinic) 09/12/2020, Expires: 08/14/2023 documented as of this encounter Results (ABNORMAL) Morphology Evaluation (Special Smear) (09/13/2020 8:10 AM CORPORATE LAWYER) Patholo gist Method Time Signature Neutrophilic Segs 85 (H) 50 - 75 % 09/13/2020 [facility] 10:28 AM CORPORATE LAWYER Lymphocytes 6 (L) 18 - 42 % 09/13/2020 [facility] 10:28 AM CORPORATE LAWYER Monocytes 1 (L) 2 - 11 % 09/13/2020 [facility] 10:28 AM CORPORATE LAWYER Eosinophils 1 1 - 3 % 09/13/2020 [facility] 10:28 AM CORPORATE LAWYER Basophils 1 0 - 2 % 09/13/2020 PM 10:28 AM CORPORATE LAWYER Metamyelocytes 1 (H) <1 % 09/13/2020 [facility] 10:28 AM CORPORATE LAWYER Myelocytes 5 (H) <0.5 % 09/13/2020 [facility] 10:28 AM CORPORATE LAWYER Nucleated RBC 6 /100 WBC 09/13/2020 PM 10:28 AM CORPORATE LAWYER Manual Absolute 2.64 1.56 - 09/13/2020 [facility] Neutrophil Count 6.45 10:28 AM CORPORATE LAWYER x10(9)/L Comment: ----ADDITIONAL INFORMATION---- The manual absolute neutrophil count is derived from a manual differential count and therefore is not exactly comparable to the automated absolute halie trophil count. Interpretation Moderate dacrocytes are present. 10:28 AM CORPORATE LAWYER [facility] Reviewed by: Liz 09/13/2020 10:28 AM CORPORATE LAWYER [facility] Specimen Anatomical Collection Method Collection Time Receive d Time (Source) Location / / Volume Laterality Blood (Blood, 09/13/2020 8:10 AM 09/14/19 8:37 Venous) CORPORATE LAWYER AM CORPORATE LAWYER Janusz Ardon LAB BLOOD ADD-ON Performing Organization Address City/State/ZIP Code Phon e Number [facility] - [address] [place], [place] [address] [place] [address] [facility] [address] (ABNORMAL) Comprehensive Metabolic Panel (09/13/2020 8:10 AM CORPORATE LAWYER) P athologist Signature Potassium, S 4.8 3.6 - 5.2 09/13/2020 DTL mmol/L 9:10 AM CORPORATE LAWYER Sodium, S 141 135 - 145 09/13/2020 DTL mmol/L 9:10 AM CORPORATE LAWYER Chloride, S 106 98 - 107 09/13/2020 DTL mmol/L 9:10 AM CORPORATE LAWYER Bicarbonate, S 24 22 - 29 09/13/2020 DTL mmol/L 9:10 AM CORPORATE LAWYER Anion Gap 11 7 - 15 09/13/2020 DTL 9:10 AM CORPORATE LAWYER BUN (Blood Urea 24 (H) 6 - 21 09/13/2020 DTL Nitrogen), S mg/dL 9:10 AM CORPORATE LAWYER Creatinine 0.98 0.59 - 09/13/2020 DTL 1.04 mg/dL 9:10 AM CORPORATE LAWYER eGFR-Non 67 >=60 09/13/2020 DTL Black/ mL/min/BSA 9:10 AM CORPORATE LAWYER Croatian Comment: ----ADDITIONAL INFORMATION---- Estimated GFR calculated using the 2009 CKD_EPI creatinine equation. eGFR-Black/ 77 >=60 mL/min/BSA 2020 9:10 AM CORPORATE LAWYER DTL Comment: ----ADDITIONAL INFORMATION---- Estimated GFR calculated using the 2009 CKD_EPI creatinine equation. Calcium, Total, S 8.6 8.6 - 10.0 mg/dL 09/13/2020 9:10 AM CORPORATE LAWYER DTL Glucose, S 111 70 - 140 mg/dL 09/13/2020 9:10 AM CORPORATE LAWYER D TL Protein, Total, S 6.1 (L) 6.3 - 7.9 g/dL 09/13/2020 9:10 A M CORPORATE LAWYER DTL Albumin, S 4.2 3.5 - 5.0 g/dL 09/13/2020 9:10 AM CORPORATE LAWYER D TL Aspartate Aminotransferase 28 8 - 43 U/L 09/13/2020 9 :10 AM CORPORATE LAWYER DTL (AST), S Alkaline Phosphatase, S 42 35 - 104 U/L 09/13/2020 9: 10 AM CORPORATE LAWYER DTL Alanine Aminotransferase 16 7 - 45 U/L 09/13/2020 9:1 0 AM CORPORATE LAWYER DTL (ALT), S Bilirubin, Total, S 0.8 <=1.2 mg/dL 09/13/2020 9:10 AM CORPORATE LAWYER DTL Specimen Anatomical Collection Method Collection Time Receive d Time (Source) Location / / Volume Laterality Blood (Blood, 09/13/2020 8:10 AM 09/14/19 21 8:34 Venous) CORPORATE LAWYER AM CORPORATE LAWYER Janusz AlexandraSZahraa LAB BLOOD ADD-ON Performing Organization Address City/State/ZIP Code Phon e Number [facility] - 200 [place], [place] [address] [facility] [place] [address] [facility] 200 [facility] (ABNORMAL) CBC with Differential, Blood (09/13/2020 8:10 AM CORPORATE LAWYER) [facility] Method Time Signature Hemoglobin 6.5 (L) 11.6 - 09/13/2020 DTL 15.0 g/dL 9:02 AM CORPORATE LAWYER Hematocrit 22.1 (L) 35.5 - 09/13/2020 DTL 44.9 % 9:02 AM CORPORATE LAWYER Erythrocytes 2.35 (L) 3.92 - 09/13/2020 DTL 5.13 9:02 AM CORPORATE LAWYER x10(12)/L MCV 94.0 78.2 - 09/13/2020 DTL 97.9 fL 9:02 AM CORPORATE LAWYER RBC Distrib Width 28.7 (H) 12.2 - 09/13/2020 DTL 16.1 % 10:28 AM CORPORATE LAWYER Platelet Count 80 (L) 157 - 371 09/13/2020 DTL x10(9)/L 10:28 AM CORPORATE LAWYER Comment: Results confirmed by smear, no clumping or interference seen. Leukocytes 3.1 (L) 3.4 - 9.6 x10(9)/L 09/13/2020 10:28 AM CORPORATE LAWYER DTL Comment: Results confirmed by smear. Neutrophils SeeComment 1.56 - 6.45 x10(9)/L 09/13/2020 10:28 AM CORPORATE LAWYER DTL Comment: Auto-diff results not valid. Se e manual differential. Specimen Anatomical Collection Method Collection Time Receive d Time (Source) Location / / Volume Laterality Blood (Blood, 09/13/2020 8:10 AM 09/14/19 21 8:37 Venous) CORPORATE LAWYER AM CORPORATE LAWYER Janusz AlexandraSZahraa LAB BLOOD ADD-ON Performing Organization Address City/State/ZIP Code Phon e Number [facility] - 200 [place], [place] [address] [facility] [place] [address] [facility] 200 [facility] documented in this encounter Visit Diagnoses Diagnosis Myelofibrosis (HCC) - Primary documented in this encounter
--- OUTSIDE RECORDS SUMMARY | 2022-05-02 12:08 | XMS_ITS | Encounter Summary ---
:1970 Author Organization [facility] Address [address] [place] [address] Care Team Providers Name Role Phone Unavailable Primary Care Provider Unavailable Reason for Visit Appointment Request (Routine) - Closed Specialty Diagnoses / Procedures Referred By Contact Refer red To Contact Hematology Referral ID Status Reason Start Date Expiration Date Visits Requ ested Visits Authorized [id number] Closed 08/11/2020 08/11/2021 1 1 Encounter Details Date Type Department Care Team Description 08/11/2020 Office Visit Division of Hematology Xuan Myelo fibrosis (HCC) in [facility], (Primary Dx) [place] Ronaldo.B.S. 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 HISTORY OF PRESENT ILLNESS Mrs. Dobbs is a pleasant 50-year-old lady with primary myelofibrosis. She enrolled in the 9-ING study. Cycle 1, day 1 was on 06/06; cycle 2, day 1 on 07/03; and cycle 3, day 1 on 08/01/2020. I am visiting with her today as an ayv-io-avfwwxuzh visit. She has decided to come off study. Her last treatment was cycle 3 day 4 on 08/04/2020. Since initiation of the study, she has been feeling more fatigued. She has had swelling of her ankles and soreness of the hips and ankles. Over the last week since coming off the study, she feels that she might be slightly improved in terms of her fluid issues. She has been receiving 1 unit of red blood cell transfusions twice weekly. Today her hemoglobin is 6.9 g/dL and is scheduled for a 1 unit of RBC transfusion. There has been no change in her spleen size. She has intermittent nausea and vomiting associated with splenomegaly. OBJECTIVE PHYSICAL EXAMINATION General: ECOG 2. Abdomen: Spleen size is unchanged at 22 cm. Extremities: Pitting edema 2+ bilaterally in the lower extremities. DIAGNOSTICS Laboratory studies reviewed. 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 I respect her wishes, and we will take her off study. We will continue to follow up with her per protocol requirements. #2 Transfusion-dependent anemia She will receive RBC transfusion today. We will check her CBC next Friday, August 18, 2020, and also set her up for a transfusion accordingly. #3 Hyperuricemia on allopurinol 300 mg daily. #4 Fluid overload Recommend TEOFILO wraps and keep her lower extremities elevated. #5 Followup in [address] Job ID: [id number]/[id number] HER ROLLER documented in 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
--- OUTSIDE RECORDS SUMMARY | 2022-05-02 12:08 | XMS_ITS | Encounter Summary ---
:1970 Author Organization [facility] Address [address] [place] [address] Care Team Providers Name Role Phone None Reported, Pcp Primary Care Provider Unavailable Encounter Details Date Type Department Care Team Description 02/16/2021 Orders Only Division of Hematology in [place], [place] M.B.B.S. 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
--- OUTSIDE RECORDS SUMMARY | 2022-05-02 12:08 | XMS_ITS | Encounter Summary ---
:1970 Author Organization [facility] Address [address] [place] [address] Care Team Providers Name Role Phone Unavailable Primary Care Provider Unavailable Reason for Visit Reason Comments Med Refill Encounter Details Date Type Department Care Team Description 10/27/2020 Refill Division of Hematology in [facility] Med Refill [place], [place] M.B.B.S. [address] [place] [address] [place] [phone] [place] [address] [phone] (Wo rk) Social History Tobacco Use Types Packs/Day Years Used Date Smoking Tobacco: Former Smokeless Tobacco: Never Sex Assigned at Date Recorded Female 07/24/2021 11:03 AM PATIENT LIAISON documented as of this encounter Miscellaneous Notes Telephone Encounter - Dena Junior R.N. - 10/27/2020 9:26 AM CDT Hyperuricemia She is on allopurinol 300 mg daily Please review and sign if appropriate. Thank you, Dena NARAYAN documented in 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
--- OUTSIDE RECORDS SUMMARY | 2022-05-02 12:09 | XMS_ITS | Encounter Summary ---
:1970 Author Organization [facility] Address [address] [place] [address] Care Team Providers Name Role Phone Unavailable Primary Care Provider Unavailable Encounter Details Date Type Department Care Team Description 08/04/2020 Hospital Encounter Department of Gangat, Myelofib rosis ([facility]) Laboratory Medicine [facility], and Pathology, [facility], in [address] [place] [phone] [place], [place] [phone] (Work) [phone] Social History Tobacco Use Types Packs/Day Years Used Date Smoking Tobacco: Former Smokeless Tobacco: Never Sex Assigned at Date Recorded Female 07/24/2021 11: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 0 morphine (MS CONTIN) 60 Take 1 tablet [...] 200 mg tablet as needed for pain. LORazepam (ATIVAN) 0.5 mg Take 0.5 mg by mouth 0 08/18/2020 tablet at bedtime. 4 tabs in the pm morphine (MSIR) 15 mg Take 15 mg by mouth 0 03/11/2022 tablet at bedtime. oxyCODONE (OXY-IR) 5 mg Take 2 capsules by 0 02/1203/18/2022 immediate release capsule mouth every 4 (four) hours as needed. documented as of this encounter Plan of Treatment Not on filedocumented as of this encounter Procedures Procedure Name Priority Date/Time Associated Diagnosis Comme nts SPSMA RESULT Routine 08/04/2020 10:17 Results for this AM ONLINE MERCHANDISING COORDINATOR procedure are i n the results section. CBC WITH Routine 08/04/2020 10:17 Myelofibrosis (HCC) Resu lts for this DIFFERENTIAL, B AM ONLINE MERCHANDISING COORDINATOR procedure ar e in the results section. TYPE AND SCREEN Routine 08/04/2020 10:17 Myelofibrosis (HCC) R esults for this AM ONLINE MERCHANDISING COORDINATOR procedure are i n the results section. documented in this encounter Results (ABNORMAL) Morphology Evaluation (Special Smear) (08/04/2020 10:17 AM ONLINE MERCHANDISING COORDINATOR) [facility] Method Time Signature Neutrophilic Segs 81 (H) 50 - 75 % 08/04/2020 DHPM and Bands 11:50 AM ONLINE MERCHANDISING COORDINATOR Lymphocytes 7 (L) 18 - 42 % 08/04/2020 DHPM 11:50 AM ONLINE MERCHANDISING COORDINATOR Monocytes 3 2 - 11 % 08/04/2020 DHPM 11:50 AM ONLINE MERCHANDISING COORDINATOR Eosinophils 1 1 - 3 % 08/04/2020 DHPM 11:50 AM ONLINE MERCHANDISING COORDINATOR Metamyelocytes 5 (H) <1 % 08/04/2020 DHPM 11:50 AM ONLINE MERCHANDISING COORDINATOR Myelocytes 3 (H) <0.5 % 08/04/2020 DHPM 11:50 AM ONLINE MERCHANDISING COORDINATOR Nucleated RBC 8 /100 WBC 08/04/2020 DHPM 11:50 AM ONLINE MERCHANDISING COORDINATOR Manual Absolute 2.03 1.56 - 08/04/2020 DHPM Neutrophil Count 6.45 11:50 AM ONLINE MERCHANDISING COORDINATOR x10(9)/L Comment: ----ADDITIONAL INFORMATION---- The manual absolute neutrophil count is derived from a manual differential count and therefore is not exactly comparable to the automated absolute halie trophil count. Specimen Anatomical Collection Method Collection Time Receive d Time (Source) Location / / Volume Laterality Blood 08/04/2020 10:17 08/04/2020 AM ONLINE MERCHANDISING COORDINATOR 10:40 AM ONLINE MERCHANDISING COORDINATOR Janusz ArringtonB.SZahraa LAB BLOOD ADD-ON Performing Organization Address [facility] Phon e Number [facility] - [address] [place], [place] [address] [place] [address] Laboratories[address] Type and Screen (with reflex Antibody ID) (08/04/2020 10:17 AM ONLINE MERCHANDISING COORDINATOR) [facility] Method Time Signature ABORh A Pos Not 08/04/2020 ETRM applicable 11:23 AM ONLINE MERCHANDISING COORDINATOR Antibody Negative Negative 08/04/2020 ETRM Screen 11:36 AM ONLINE MERCHANDISING COORDINATOR Type & Screen 08/07/2020 08/04/2020 ETRM Expiration 23:59 11:23 AM ONLINE MERCHANDISING COORDINATOR Testing Deidra DEFAULT 08/04/2020 ETRM Location 10:45 AM ONLINE MERCHANDISING COORDINATOR Specimen Anatomical Collection Method Collection Time Receive d Time (Source) Location / / Volume Laterality Blood (Blood, 08/04/2020 10:17 08/04/2020 Venous) AM ONLINE MERCHANDISING COORDINATOR 10:45 AM ONLINE MERCHANDISING COORDINATOR Janusz ArringtonBZahraaSZahraa LAB BLOOD BANK TEST ORDERABL ES Performing Organization Address [facility] Phon e Number [facility] - 200 [place], [place] [address] [facility] [place] [address] [address] (ABNORMAL) CBC with Differential, Blood (08/04/2020 10:17 AM ONLINE MERCHANDISING COORDINATOR) [facility] Method Time Signature Hemoglobin 6.8 (L) 11.6 - 08/04/2020 DTL 15.0 g/dL 10:46 AM ONLINE MERCHANDISING COORDINATOR Hematocrit 23.1 (L) 35.5 - 08/04/2020 DTL 44.9 % 10:46 AM ONLINE MERCHANDISING COORDINATOR Erythrocytes 2.52 (L) 3.92 - 08/04/2020 DTL 5.13 10:46 AM ONLINE MERCHANDISING COORDINATOR x10(12)/L MCV 91.7 78.2 - 08/04/2020 DTL 97.9 fL 10:46 AM ONLINE MERCHANDISING COORDINATOR RBC Distrib Width 24.5 (H) 12.2 - 08/04/2020 DTL 16.1 % 10:46 AM ONLINE MERCHANDISING COORDINATOR Platelet Count 74 (L) 157 - 371 08/04/2020 DTL x10(9)/L 10:46 AM ONLINE MERCHANDISING COORDINATOR Leukocytes 2.5 (L) 3.4 - 9.6 08/04/2020 DTL x10(9)/L 11:49 AM ONLINE MERCHANDISING COORDINATOR Comment: Results confirmed by smear. Neutrophils SeeComment 1.56 - 6.45 x10(9)/L 08/04/2020 11:49 AM ONLINE MERCHANDISING COORDINATOR DTL Comment: Auto-diff results not valid. Se e manual differential. Specimen Anatomical Collection Method Collection Time Receive d Time (Source) Location / / Volume Laterality Blood (Blood, 08/04/2020 10:17 08/04/2020 Venous) AM ONLINE MERCHANDISING COORDINATOR 10:40 AM ONLINE MERCHANDISING COORDINATOR Janusz Ardon LAB BLOOD ADD-ON Performing Organization Address City/State/ZIP Code Phon e Number [facility] - [address] [place], [place] [address] [facility] [place] [address] Laboratories-[facility] [address] documented in this encounter Visit Diagnoses Diagnosis Myelofibrosis (HCC) documented in this encounter
--- OUTSIDE RECORDS SUMMARY | 2022-05-02 12:09 | XMS_ITS | Encounter Summary ---
:1970 Author Organization [facility] Address [address] [place] [address] Care Team Providers Name Role Phone Unavailable Primary Care Provider Unavailable Reason for Visit Episode Based Medications (Routine) - Closed Specialty Diagnoses / Procedures Referred By Contact Refer red To Contact Medical Oncology / Diagnoses Myelofibrosis (HCC) Janusz Govea Rst Inf Onc [facility]cology Procedures ONCBCN INFUSION APPOINTMENT REQUEST 09 ONC THER INF M.B.B.S. [address] [place] [address] [place] [phone] Referral ID Status Reason Start Date Expiration Date Visits Requ ested Visits Authorized [id number] Closed 06/06/2020 06/20/2021 99 30 Encounter Details Date Type Department Care Team Description 08/01/2020 Infusion Department of Oncology Janusz Govea M yelofibrosis (HCC) in [facility] M.B.B.S. 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 documented as of this encounter Last Filed Vital Signs Vital Sign Reading Time Taken Comments Blood Pressure 135/73 08/01/2020 3:30 PM INSTRUCTIONAL INTERVENTIONIST Pulse 90 08/01/2020 3:30 PM INSTRUCTIONAL INTERVENTIONIST Temperature 36.2 ??C (97.1 ??F) 08/01/2020 3:30 PM INSTRUCTIONAL INTERVENTIONIST Respiratory Rate 22 08/01/2020 3:30 PM INSTRUCTIONAL INTERVENTIONIST Oxygen Saturation - - Inhaled Oxygen Concentration [...] MAR Action Action Date Dose Rate Site Research IRB [id number] New Bag 08/01/2020 1:31 PM INSTRUCTIONAL INTERVENTIONIST 1,130 mg 5 57 mL/hr 9-- 1,130 mg in NaCl 0.9% (non-PVC) 1,113 mL IVPB 1,130 mg (rounded from 1,132.12 mg = 12.4 mg/kg ? 91.3 kg Order-specific weight), intravenous, at 557 mL/hr, Administer over 2 Hours, Once, On Fri08/01/20 at 1230, For 1 dose, CSTDs cannot be used. Flush with 30ml at IV site following completion of --. Monitor BP (pre dose & post dose), HR, temp, resp (pre-dose and as clinically indicated). Administer using 1.2 micron filter tubing via a peripheral or central line. sodium chloride (flush) 0.9 % injection 30 mL Given 08/01/2020 3:23 PM INSTRUCTIONAL INTERVENTIONIST 30 mL 30 mL, intravenous, Once, On Fri08/01/20 at 1330, For 1 dose, Post chemotherapy flush documented in this encounter
--- OUTSIDE RECORDS SUMMARY | 2022-05-02 12:09 | XMS_ITS | Encounter Summary ---
:[address] 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
--- OUTSIDE RECORDS SUMMARY | 2022-05-02 12:09 | XMS_ITS | Encounter Summary ---
:1970 Author Organization [facility] Address [address] [place] [address] Care Team Providers Name Role Phone Unavailable Primary Care Provider Unavailable Reason for Visit Episode Based Medications (Routine) - Closed Specialty Diagnoses / Procedures Referred By Contact Refer red To Contact Medical Oncology / Diagnoses Myelofibrosis (HCC) Janusz Govea Rst Inf Onc [facility] Procedures ONCBCN INFUSION APPOINTMENT REQUEST 09 ONC THER INF M.B.B.S. [address] [place] [address] [place] [phone] Referral ID Status Reason Start Date Expiration Date Visits Requ ested Visits Authorized [id number] Closed 06/06/2020 06/20/2021 99 30 Encounter Details Date Type Department Care Team Description 07/24/2020 Infusion Department of Oncology Janusz Govea M yelofibrosis (HCC) in [facility] M.B.B.S. 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 documented as of this encounter Last Filed Vital Signs Vital Sign Reading Time Taken Comments Blood Pressure 114/55 07/24/2020 2:23 PM GAS METER REPAIRER Pulse 87 07/24/2020 2:23 PM GAS METER REPAIRER Temperature 36.5 ??C (97.7 ??F) 07/24/2020 2:23 PM GAS METER REPAIRER Respiratory Rate 18 07/24/2020 2:23 PM GAS METER REPAIRER Oxygen Saturation - - Inhaled Oxygen Concentration - - Weight 91.7 kg (202 lb 0.8 oz) 07/24/2020 10:09 AM GAS METER REPAIRER Height - - Body Mass Index 32.09 07/03/2020 9:03 AM GAS METER REPAIRER documented in 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 Administered Medications Inactive Administered Medications - up to 3 most recent administrations Medication Order MAR Action Action Date Dose Rate Site Research IRB [id number] New Bag 07/24/2020 12:15 PM GAS METER REPAIRER 1,130 mg 500 mL/hr 1,130 mg in NaCl 0.9% (non-PVC) 1,130 mL IVPB 1,130 mg (rounded from 1,132.12 mg = 12.4 mg/kg ? 91.3 kg Order-specific weight), intravenous, at 500 mL/hr, Once, On Fri07/24/20 at 1030, For 1 dose, CSTDs cannot be used. Flush with 30ml at IV site following completion of . Monitor BP (pre dose & post dose), HR, temp, resp (pre-dose and as clinically indicated). Administer using 1.2 micron filter tubing via a peripheral or central line. sodium chloride (flush) 0.9 % injection 30 mL Given 07/24/2020 2:21 PM GAS METER REPAIRER 30 mL 30 mL, intravenous, Once, On Fri07/24/20 at 1230, For 1 dose, Post chemotherapy flush documented in this encounter
--- OUTSIDE RECORDS SUMMARY | 2022-05-02 12:09 | XMS_ITS | Encounter Summary ---
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
--- OUTSIDE RECORDS SUMMARY | 2022-05-02 12:09 | XMS_ITS | Encounter Summary ---
:1970 Author Organization [facility] Address [address] [place] [address] Care Team Providers Name Role Phone Unavailable Primary Care Provider Unavailable Reason for Referral Specialty Diagnoses / Procedures Referred By Contact Refer red To Contact Janusz Govea M.B .B.S. [facility] [address] [place] [phone] Referral ID Status Reason Start Date Expiration Date Visits Requ ested Visits Authorized ING MACHINE OPERATOR Encounter Details Date Type Department Care Team Description 08/01/2020 Clinical Communication Division of Hematology Janusz Govea, in [facility] milton ArringtonB.S. 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
--- OUTSIDE RECORDS SUMMARY | 2022-05-02 12:09 | XMS_ITS | Encounter Summary ---
:1970 Author Organization [facility] Address [address] [place] [address] Care Team Providers Name Role Phone Unavailable Primary Care Provider Unavailable Reason for Visit Outpatient (Routine) - Closed Specialty Diagnoses / Procedures Referred By Contact Refer red To Contact Hematology Oncology Diagnoses [facility]ofibrosis [facility]CC) [facility] [address] [place] [phone] Referral ID Status Reason Start Date Expiration Date Visits Requ ested Visits Authorized [id number] Closed 06/16/2020 06/16/2021 1 1 Encounter Details Date Type Department Care Team Description 08/01/2020 Office Visit Division of Hematology Janusz Govea M yelofibrosis (HCC) in [facility] M.B.B.S. 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 documented as of this encounter Last Filed Vital Signs Vital Sign Reading Time Taken Comments Blood Pressure 116/58 08/01/2020 10:37 AM IGNITION SPECIALIST Pulse 82 08/01/2020 10:37 AM IGNITION SPECIALIST Temperature 35.8 ??C (96.4 ??F) 08/01/2020 10:37 AM IGNITION SPECIALIST Respiratory Rate - - Oxygen Saturation - - Inhaled Oxygen Concentration - - Weight 95.9 kg (211 lb 6.7 oz) 08/01/2020 10:37 AM IGNITION SPECIALIST Height 169.4 cm (5' 6.69) 08/01/2020 10:37 AM IGNITION SPECIALIST Body Mass Index 33.42 08/01/2020 10:37 AM IGNITION SPECIALIST documented in this encounter Progress Notes Janusz Govea M.B.B.S. 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 HISTORY OF PRESENT ILLNESS Mrs. Dobbs is a pleasant 50-year-old lady with primary myelofibrosis. She is accompanied by her . Intial diagnosis in August 2015. Main issues have been marked splenomegaly requiring narcotics for pain control and transfusion- dependent anemia.Her prior treatments have included Jakafi, which she was intolerant of. Then there was an alisertib clinical trial, completed 4 cycles of therapy without much benefit and toxicities in the form of fatigue and alopecia. She was initiated on the 9-ING study, cycle 1, day 1 on 06/06; cycle 2, day 1 on 07/03. She feels quite fatigued and swollen. She has sore hips and ankles, as well as the bottom of her feet. She has paresthesias in the right foot and notices periorbital edema as well and headaches, intermittent vomiting, night sweats, along with sweats during the day. No fevers or intercurrent infections. She has felt no change in her spleen size and continues to require narcotics for pain control. Since initiation of the study drug, she has been requiring more frequent transfusions, partly due tohemodilution since she receives 1 L of fluid with each infusion which is twice weekly. I did explainthat to her. Prior to trial enrollment, she was receiving transfusions every 2 weeks. In terms of toxicity, she experiences visual toxicity, sees darkening of the vision, trails and gloominess which goes away right after the infusion has been completed. Allergies reviewed. No medication changes noted. OBJECTIVE PHYSICAL EXAMINATION Vital Signs: Height 169.4 cm, weight 95.9 kg. Pulse 82, regular. Blood pressure 116/58. General: Comfortable, in no acute distress. ECOG 2. Lungs: Clear to auscultation. Heart: Regular rate and rhythm with a systolic murmur. Abdomen: Spleen is unchanged, 22 cm below the costal margin and also crosses the midline. Extremities : Pitting edema 2 to 3+ bilaterally. DIAGNOSTICS LABORATORY STUDIES: Hemoglobin 6.6 g/dL. She has been receiving 2 units of RBC on a weekly basis, 1 unit every time she comes in for an infusion. The rest of the labs are stable. EKG reviewed. 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 She experiences visual toxicity with every infusion and has also been suffering from fluid buildup. She is hesitant to take Lasix since she gets frequent urination while she is on her way back home. I did discuss with her that the lower trend of her anemia is likely a hemodilution effect as well. There has been no change in her symptoms at this time, so we discussed continuing another cycle of therapy and then deciding whether she comes off therapy or not. #4 Fluid overload This can be monitored. #5 Transfusion-dependent anemia She will have an RBC transfusion today and we will also recheck her hemoglobin on 08/04/2020. #6 Hyperuricemia This has resolved after initiation of allopurinol 300 mg daily. #7 Followup In one month Nasrin ForemanS. CT CT Job ID: [id number] TION SPECIALIST documented in this encounter Plan of Treatment Not on filedocumented as of this encounter Visit Diagnoses Diagnosis Myelofibrosis (HCC) documented in this encounter
--- OUTSIDE RECORDS SUMMARY | 2022-05-02 12:09 | XMS_ITS | Encounter Summary ---
:1970 Author Organization [facility] Address [address] [place] [address] Care Team Providers Name Role Phone Unavailable Primary Care Provider Unavailable Reason for Visit Episode Based Medications (Routine) - Closed Specialty Diagnoses / Procedures Referred By Contact Refer red To Contact Medical Oncology / Diagnoses Myelofibrosis (HCC) Janusz Govea Rst Inf Onc [facility] Oncology Procedures ONCBCN INFUSION APPOINTMENT REQUEST 09 ONC THER INF M.B.B.S. [address] [place] [address] [place] [phone] Referral ID Status Reason Start Date Expiration Date Visits Requ ested Visits Authorized [id number] Closed 06/06/2020 06/20/2021 99 30 Encounter Details Date Type Department Care Team Description 08/04/2020 Infusion Department of Oncology Janusz Govea M yelofibrosis (HCC) in [facility] M.B.B.S. 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 documented as of this encounter Last Filed Vital Signs Vital Sign Reading Time Taken Comments Blood Pressure 142/67 08/04/2020 2:11 PM SAMPLING THEORY TEACHER Pulse 92 08/04/2020 2:11 PM SAMPLING THEORY TEACHER Temperature 36.4 ??C (97.5 ??F) 08/04/2020 2:11 PM SAMPLING THEORY TEACHER Respiratory Rate 20 08/04/2020 2:11 PM SAMPLING THEORY TEACHER Oxygen Saturation - - Inhaled Oxygen Concentration - - Weight 97 kg (213 lb 11.8 oz) 08/04/2020 10:48 AM SAMPLING THEORY TEACHER Height - - Body Mass Index 33.78 08/01/2020 10:37 AM SAMPLING THEORY TEACHER documented in 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 Administered Medications Inactive Administered Medications - up to 3 most recent administrations Medication Order MAR Action Action Date Dose Rate Site Research IRB [id number] New Bag 08/04/2020 12:00 PM SAMPLING THEORY TEACHER 1,130 mg 557 mL/hr 9-ING-41 1,130 mg in NaCl 0.9% (non-PVC) 1,113 mL IVPB 1,130 mg (rounded from 1,132.12 mg = 12.4 mg/kg ? 91.3 kg Order-specific weight), intravenous, at 557 mL/hr, Administer over 2 Hours, Once, On Fri08/04/20 at 1100, For 1 dose, CSTDs cannot be used. Flush with 30ml at IV site following completion of 9-ING-41. Monitor BP (pre dose & post dose), HR, temp, resp (pre-dose and as clinically indicated). Administer using 1.2 micron filter tubing via a peripheral or central line. sodium chloride (flush) 0.9 % injection 30 mL Given 08/04/2020 2:07 PM SAMPLING THEORY TEACHER 30 mL 30 mL, intravenous, Once, On Fri08/04/20 at 1100, For 1 dose, Post chemotherapy flush documented in this encounter
--- OUTSIDE RECORDS SUMMARY | 2022-05-02 12:09 | XMS_ITS | Encounter Summary ---
:1970 Author Organization [facility] Address [address] [place] [id number] Care Team Providers Name Role Phone Unavailable Primary Care Provider Unavailable Encounter Details Date Type Department Care Team Description 07/24/2020 Clinical Communication Division of Hematology Janusz Govea, in [facility] milton AlexandraS. 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 - 07/24/2020 10:08 AM HOME PERFORMANCE LABORER i received a call form results inquiry that patient hgb today is 5.9. I tried calling patient and message stated she is not taking calls now. I informed Dr. Govea who asked me to let chemo know as patient has an appointment there this morning. I called and spoke with Jolene NARAYAN at chemo unit and ankita know the above, and she will stress importance to patient she go to [facility] today at 3:15pm today toreceive RBC transfusion. PERFORMANCE LABORER documented in 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
--- OUTSIDE RECORDS SUMMARY | 2022-05-02 12:09 | XMS_ITS | Encounter Summary ---
:1970 Author Organization [facility] Address [address] [place] [address] Care Team Providers Name Role Phone Unavailable Primary Care Provider Unavailable Reason for Visit Reason Comments Outpatient Infusion Encounter Details Date Type Department Care Team Description 07/17/2020 Infusion Department of Infusion Janusz Govea M yelofibrosis (HCC) Therapy in [facility]. 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 documented as of this encounter Last Filed Vital Signs Vital Sign Reading Time Taken Comments Blood Pressure 129/71 07/17/2020 9:34 PM HVAC ENGINEER Pulse 90 07/17/2020 9:34 PM HVAC ENGINEER Temperature 37 ??C (98.6 ??F) 07/17/2020 9:34 PM HVAC ENGINEER Respiratory Rate 16 07/17/2020 9:34 PM HVAC ENGINEER Oxygen Saturation - - Inhaled Oxygen Concentration - - Weight - - Height - - Body Mass Index - - documented in this encounter Plan of Treatment Pending Results Name Type Priority Associated Diagnoses Date/Ti me Prepare Red Blood Blood Bank Routine Myelofibrosis (HCC) 10/2020 9:41 AM HVAC ENGINEER Cells, 2 Units documented as of this encounter Procedures Procedure Name Priority Date/Time Associated Diagnosis Comme nts TRANSFUSE RED BLOOD Routine 07/17/2020 7:16 PM HVAC ENGINEER Myelofibros is (HCC) CELLS TRANSFUSE RED BLOOD Routine 07/17/2020 4:57 PM HVAC ENGINEER Myelofibros is (HCC) CELLS PREPARE RED BLOOD CELLS Routine 07/17/2020 9:41 AM HVAC ENGINEER Myelofi brosis (HCC) documented in this encounter Results Transfuse Red Blood Cells : (07/17/2020 9:43 PM HVAC ENGINEER) Naseema Gangat M.B.B.S. BLOOD TRANSFUSION ORDERABLES Transfuse Red Blood Cells : , 2 Units (07/17/2020 9:43 PM HVAC ENGINEER) Naseema Gangat M.B.B.S. BLOOD TRANSFUSION ORDERABLES Transfuse Red Blood Cells : (07/17/2020 7:16 PM HVAC ENGINEER) Naseema Gangat M.B.B.S. BLOOD TRANSFUSION ORDERABLES documented in this encounter Visit Diagnoses Diagnosis Myelofibrosis (HCC) - Primary documented in this encounter Administered Medications Inactive Administered Medications - up to 3 most recent administrations Medication Order MAR Action Action Date Dose Rate Site sodium chloride 0.9 % injection 3 mL Given 07/17/2020 9:34 PM HVAC ENGINEER 3 mL 3 mL, intra-catheter, As needed, line care, Starting on Fri07/17/20 at 1631, Prior to and following infusion and between multiple consecutive infusions. documented in this encounter
--- OUTSIDE RECORDS SUMMARY | 2022-05-02 12:09 | XMS_ITS | Encounter Summary ---
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
--- OUTSIDE RECORDS SUMMARY | 2022-05-02 12:09 | XMS_ITS | Encounter Summary ---
:1970 Author Organization [facility] Address [address] [place] [address] Care Team Providers Name Role Phone Unavailable Primary Care Provider Unavailable Encounter Details Date Type Department Care Team Description 07/20/2020 Orders Only Division of Krzysztof Pearce Myelofibr osis (HCC) Hematology in (Primary Dx) [place], [place] [phone] [address] [facility] (Work) [place] [address] Social History Tobacco Use Types Packs/Day Years Used Date Smoking Tobacco: Former Smokeless Tobacco: Never Sex Assigned at Date Recorded Female 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
--- OUTSIDE RECORDS SUMMARY | 2022-05-02 12:09 | XMS_ITS | Encounter Summary ---
:1970 Author Organization [facility] Address [address] [place] [address] Care Team Providers Name Role Phone Unavailable Primary Care Provider Unavailable Reason for Visit Episode Based Medications (Routine) - Closed Specialty Diagnoses / Procedures Referred By Contact Refer red To Contact Medical Oncology / Diagnoses Myelofibrosis (HCC) Janusz Govea Rst [facility] Procedures [facility] INFUSION APPOINTMENT REQUEST 09 [facility] [address] [place] [address] [place] [phone] Referral ID Status Reason Start Date Expiration Date Visits Requ ested Visits Authorized [id number] Closed 06/06/2020 06/20/2021 99 30 Encounter Details Date Type Department Care Team Description 07/20/2020 Infusion Department of Oncology Janusz Govea M yelofibrosis (HCC) in [facility] 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 documented as of this encounter Last Filed Vital Signs Vital Sign Reading Time Taken Comments Blood Pressure 124/65 07/20/2020 3:26 PM DIRECTOR OF PHYSICAL EDUCATION Pulse 103 07/20/2020 3:26 PM DIRECTOR OF PHYSICAL EDUCATION Temperature 36.5 ??C (97.7 ??F) 07/20/2020 3:26 PM DIRECTOR OF PHYSICAL EDUCATION Respiratory Rate 20 07/20/2020 3:26 PM DIRECTOR OF PHYSICAL EDUCATION Oxygen Saturation - - Inhaled Oxygen Concentration - - Weight 92.4 kg (203 lb 13 oz) 07/20/2020 10:28 AM DIRECTOR OF PHYSICAL EDUCATION Height - - Body Mass Index 32.37 07/03/2020 9:03 AM DIRECTOR OF PHYSICAL EDUCATION documented in 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 Administered Medications Inactive Administered Medications - up to 3 most recent administrations Medication Order MAR Action Action Date Dose Rate Site Research IRB [id number] Subsequent Bag 07/20/2020 1:48 PM 565 mg 5 00 mL/hr 9-ING-41 1,130 mg in NaCl DIRECTOR OF PHYSICAL EDUCATION 0.9% (non-PVC) 1,113 mL IVPB 1,130 mg (rounded from 1,132.12 mg = 12.4 mg/kg ? 91.3 kg Order-specific weight), intravenous, at 500 mL/hr, Administer over 2 Hours, Once, On Aruna 07/20/20 at 1145, For 1 dose, CSTDs cannot be used. Flush with 30ml at IV site following completion of 9-ING-41. Monitor BP (pre dose & post dose), HR, temp, resp (pre-dose and as clinically indicated). Administer using 1.2 micron filter tubing via a peripheral or central line. New Bag 07/20/2020 12:09 PM DIRECTOR OF PHYSICAL EDUCATION 565 mg 500 mL/hr sodium chloride 0.9 % injection 3 mL Given 07/20/2020 3:23 PM DIRECTOR OF PHYSICAL EDUCATION 30 mL 3 mL, intra-catheter, As needed, line care, Starting on Aruna 07/20/20 at 1523, Prior to and following infusion and between multiple consecutive infusions. documented in this encounter
--- OUTSIDE RECORDS SUMMARY | 2022-05-02 12:09 | XMS_ITS | Encounter Summary ---
:1970 Author Organization [facility] Address [address] [place] [address] Care Team Providers Name Role Phone Unavailable Primary Care Provider Unavailable Encounter Details Date Type Department Care Team Description 08/01/2020 Hospital Encounter Department of Gangat, Myelofib rosis ([facility]) Laboratory Medicine [facility], [facility] in [address] [place] [id number] [place], [place] [phone] (Work) [phone] Social History Tobacco Use Types Packs/Day Years Used Date Smoking Tobacco: Former Smokeless Tobacco: Never Sex Assigned at Date Recorded Female 07/24/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 CBC WITH DIFFERENTIAL, B Routine 08/01/2020 8:46 Myelofibrosis (HCC) Results for this AM MUTUEL MACHINE OPERATOR procedure are i n the results section. TYPE AND SCREEN Routine 08/01/2020 8:46 Myelofibrosis (HCC) Re sults for this AM MUTUEL MACHINE OPERATOR procedure are i n the results section. URIC ACID, S/P Routine 08/01/2020 8:46 Myelofibrosis (HCC) Res ults for this AM MUTUEL MACHINE OPERATOR procedure are i n the results section. BUN (BLOOD UREA Routine 08/01/2020 8:46 Myelofibrosis (HCC) Re sults for this NITROGEN), S/P AM MUTUEL MACHINE OPERATOR procedure are in the results section. ALANINE AMINOTRANSFERASE Routine 08/01/2020 8:46 Myelofibrosis (HCC) Results for this (ALT), S/P AM MUTUEL MACHINE OPERATOR procedure are i n the results section. ASPARTATE Routine 08/01/2020 8:46 Myelofibrosis (HCC) Resul ts for this AMINOTRANSFERASE (AST), AM MUTUEL MACHINE OPERATOR proc edure are in S/P the results section. SODIUM, S/P Routine 08/01/2020 8:46 Myelofibrosis (HCC) Resul ts for this AM MUTUEL MACHINE OPERATOR procedure are i n the results section. PROTEIN, TOTAL, S/P Routine 08/01/2020 8:46 Myelofibrosis (HCC ) Results for this AM MUTUEL MACHINE OPERATOR procedure are i n the results section. POTASSIUM, S/P Routine 08/01/2020 8:46 Myelofibrosis (HCC) Res ults for this AM MUTUEL MACHINE OPERATOR procedure are i n the results section. ALKALINE PHOSPHATASE, Routine 08/01/2020 8:46 Myelofibrosis (H CC) Results for this S/P AM MUTUEL MACHINE OPERATOR procedure are i n the results section. MAGNESIUM, S Routine 08/01/2020 8:46 Myelofibrosis (HCC) Resul ts for this AM MUTUEL MACHINE OPERATOR procedure are i n the results section. GLUCOSE, RANDOM, S/P Routine 08/01/2020 8:46 Myelofibrosis (HC C) Results for this AM MUTUEL MACHINE OPERATOR procedure are i n the results section. CREATININE WITH EGFR, Routine 08/01/2020 8:46 Myelofibrosis (H CC) Results for this S/P AM MUTUEL MACHINE OPERATOR procedure are i n the results section. CHLORIDE, S/P Routine 08/01/2020 8:46 Myelofibrosis (HCC) Resu lts for this AM MUTUEL MACHINE OPERATOR procedure are i n the results section. CALCIUM, TOT, S/P Routine 08/01/2020 8:46 Myelofibrosis (HCC) Results for this AM MUTUEL MACHINE OPERATOR procedure are i n the results section. BILIRUBIN, TOT, S/P Routine 08/01/2020 8:46 Myelofibrosis (HCC ) Results for this AM MUTUEL MACHINE OPERATOR procedure are i n the results section. ALBUMIN, S/P Routine 08/01/2020 8:46 Myelofibrosis (HCC) Resul ts for this AM MUTUEL MACHINE OPERATOR procedure are i n the results section. documented in this encounter Results (ABNORMAL) Morphology Evaluation (Special Smear) (08/01/2020 8:46 AM MUTUEL MACHINE OPERATOR) Analysis Performed At Patho logist Time Signature Neutrophilic Segs 70 50 - 75 % 08/01/2020 DH[facility] and Bands 10:47 AM MUTUEL MACHINE OPERATOR Lymphocytes 14 (L) 18 - 42 % 08/01/2020 DHPM 10:47 AM MUTUEL MACHINE OPERATOR Eosinophils 1 1 - 3 % 08/01/2020 DH[facility] 10:47 AM MUTUEL MACHINE OPERATOR Basophils 2 0 - 2 % 08/01/2020 DH[facility] 10:47 AM MUTUEL MACHINE OPERATOR Myelocytes 11 (H) <0.5 % 08/01/2020 DH[facility] 10:47 AM MUTUEL MACHINE OPERATOR Blasts 2 (H) <1 % 08/01/2020 DH[facility] 10:47 AM MUTUEL MACHINE OPERATOR Nucleated RBC 8 /100 WBC 08/01/2020 [facility] 10:47 AM MUTUEL MACHINE OPERATOR Manual Absolute 1.96 1.56 - 08/01/2020 [facility] Neutrophil Count 6.45 10:47 AM MUTUEL MACHINE OPERATOR x10(9)/L Comment: ----ADDITIONAL INFORMATION---- The manual absolute neutrophil count is derived from a manual differential count and therefore is not exactly comparable to the automated absolute halie trophil count. Specimen Anatomical Collection Method Collection Time Receive d Time (Source) Location / / Volume Laterality Blood 08/01/2020 8:46 AM 9:15 MUTUEL MACHINE OPERATOR AM MUTUEL MACHINE OPERATOR Janusz ArringtonB.S. LAB BLOOD ADD-ON Performing Organization Address City/[facility] Phon e Number [facility] - [address] [place], [place] [address] [place] [address] [address] Type and Screen (with reflex Antibody ID) (08/01/2020 8:46 AM MUTUEL MACHINE OPERATOR) Patholo gist Method Time Signature ABORh A Pos Not 08/01/2020 ETRM applicable 11:13 AM MUTUEL MACHINE OPERATOR Antibody Negative Negative 08/01/2020 E[facility] Screen 11:10 AM MUTUEL MACHINE OPERATOR Type & Screen 08/04/2020 08/01/2020 ETRM Expiration 23:59 11:10 AM MUTUEL MACHINE OPERATOR Testing [place] DEFAULT 08/01/2020 ETRM Location 10:09 AM MUTUEL MACHINE OPERATOR Specimen Anatomical Collection Method Collection Time Receive d Time (Source) Location / / Volume Laterality Blood (Blood, 08/01/2020 8:46 AM 08/01/19 21 Venous) MUTUEL MACHINE OPERATOR 10:09 AM MUTUEL MACHINE OPERATOR Janusz ArringtonB.S. LAB BLOOD BANK TEST ORDERABL ES Performing Organization Address [facility] Phon e Number [facility] - [address] [place], [place] [address] [facility] [address] [facility]-[address] (ABNORMAL) Protein, Total (08/01/2020 8:46 AM MUTUEL MACHINE OPERATOR) P athologist Signature Protein, 5.8 (L) 6.3 - 7.9 08/01/2020 DTL Total, S g/dL 9:59 AM MUTUEL MACHINE OPERATOR Specimen Anatomical Collection Method Collection Time Receive d Time (Source) Location / / Volume Laterality Blood (Blood, 08/01/2020 8:46 AM 08/01/19 9:11 Venous) MUTUEL MACHINE OPERATOR AM MUTUEL MACHINE OPERATOR Janusz Govea M.B.B.S. LAB BLOOD ADD-ON Performing Organization Address City/[facility]/ZIP [facility] [place] Phon e Number [facility] - [id number] [place] [address] [address] [facility] Albumin (08/01/2020 8:46 AM MUTUEL MACHINE OPERATOR) P athologist Signature Albumin, S 4.3 3.5 - 5.0 08/01/2020 DTL g/dL 9:59 AM MUTUEL MACHINE OPERATOR Specimen Anatomical Collection Method Collection Time Receive d Time (Source) Location / / Volume Laterality Blood (Blood, 08/01/2020 8:46 AM 08/01/19 9:11 Venous) MUTUEL MACHINE OPERATOR AM MUTUEL MACHINE OPERATOR Janusz Govea M.B.B.S. LAB BLOOD ADD-ON Performing Organization Address City/[facility] Phon e Number [facility] - [address] [facility] Glucose, Random (08/01/2020 8:46 AM MUTUEL MACHINE OPERATOR) P athologist Signature Glucose, S 126 70 - 140 08/01/2020 DTL mg/dL 9:59 AM MUTUEL MACHINE OPERATOR Specimen Anatomical Collection Method Collection Time Receive d Time (Source) Location / / Volume Laterality Blood (Blood, 08/01/2020 8:46 AM 08/01/19 9:11 Venous) MUTUEL MACHINE OPERATOR AM MUTUEL MACHINE OPERATOR Janusz Govea M.B.B.S. LAB BLOOD TROPONIN Performing Organization Address City/State/ZIP [facility] [place] Phon e Number [facility] - [address] Uric Acid (08/01/2020 8:46 AM MUTUEL MACHINE OPERATOR) P athologist Signature Uric Acid, S 3.9 2.7 - 6.1 08/01/2020 DTL mg/dL 9:59 AM MUTUEL MACHINE OPERATOR Specimen Anatomical Collection Method Collection Time Receive d Time (Source) Location / / Volume Laterality Blood (Blood, 08/01/2020 8:46 AM 08/01/19 9:11 Venous) MUTUEL MACHINE OPERATOR AM MUTUEL MACHINE OPERATOR Janusz AlexandraSZahraa LAB BLOOD ADD-ON Performing Organization Address City/State/[facility] Code Phon e Number [facility] - [address] [place], [place] [address] [place] [address] (ABNORMAL) Creatinine with Estimated GFR (08/01/2020 8:46 AM MUTUEL MACHINE OPERATOR) Analysis Performed At Patho logist Time Signature Creatinine 1.06 (H) 0.59 - 08/01/2020 DTL 1.04 mg/dL 9:59 AM MUTUEL MACHINE OPERATOR eGFR-Non 61 >=60 08/01/2020 DTL Black/ mL/min/BSA 9:59 AM MUTUEL MACHINE OPERATOR Swazi Comment: ----ADDITIONAL INFORMATION---- Estimated GFR calculated using the 2009 CKD_EPI creatinine equation. eGFR-Black/ 70 >=60 mL/min/BSA 2020 9:59 AM MUTUEL MACHINE OPERATOR DTL Comment: ----ADDITIONAL INFORMATION---- Estimated GFR calculated using the 2009 CKD_EPI creatinine equation. Specimen Anatomical Collection Method Collection Time Receive d Time (Source) Location / / Volume Laterality Blood (Blood, 08/01/2020 8:46 AM 08/01/19 9:11 Venous) MUTUEL MACHINE OPERATOR AM MUTUEL MACHINE OPERATOR Janusz AlexandraSZahraa LAB BLOOD ADD-ON Performing Organization Address City/State/ZIP Code Phon e Number [facility] - 200 [place], [place] [address] [place] [address] BUN (Blood Urea Nitrogen) (08/01/2020 8:46 AM MUTUEL MACHINE OPERATOR) P athologist Signature BUN (Blood Urea 19 6 - 21 08/01/2020 DTL Nitrogen), S mg/dL 9:59 AM MUTUEL MACHINE OPERATOR Specimen Anatomical Collection Method Collection Time Receive d Time (Source) Location / / Volume Laterality Blood (Blood, 08/01/2020 8:46 AM 08/01/19 9:11 Venous) MUTUEL MACHINE OPERATOR AM MUTUEL MACHINE OPERATOR Janusz [place].B.S. LAB BLOOD ADD-ON Performing Organization Address City/[facility] Phon e Number [facility] - [address] 200 [facility] Bilirubin, Total (08/01/2020 8:46 AM MUTUEL MACHINE OPERATOR) athologist Signature Bilirubin, 1.0 <=1.2 mg/dL 08/01/2020 DTL Total, S 9:59 AM MUTUEL MACHINE OPERATOR Specimen Anatomical Collection Method Collection Time Receive d Time (Source) Location / / Volume Laterality Blood (Blood, 08/01/2020 8:46 AM 08/01/19 9:11 Venous) MUTUEL MACHINE OPERATOR AM MUTUEL MACHINE OPERATOR Janusz [place].Cain.B.S. LAB BLOOD ADD-ON Performing Organization Address City/[facility]/ZIP Code Phon e Number [facility] - [address] Calcium, Total (08/01/2020 8:46 AM MUTUEL MACHINE OPERATOR) athologist Signature Calcium, Total, 8.8 8.6 - 10.0 08/01/2020 DTL S mg/dL 9:59 AM MUTUEL MACHINE OPERATOR Specimen Anatomical Collection Method Collection Time Receive d Time (Source) Location / / Volume Laterality Blood (Blood, 08/01/2020 8:46 AM 08/01/19 9:11 Venous) MUTUEL MACHINE OPERATOR AM MUTUEL MACHINE OPERATOR Janusz [place].B.S. LAB BLOOD ADD-ON Performing Organization Address City/[facility] Phon e Number [facility] - 200 [place], [place] [address] Chloride (08/01/2020 8:46 AM MUTUEL MACHINE OPERATOR) athologist Signature Chloride, S 105 98 - 107 08/01/2020 DTL mmol/L 9:59 AM MUTUEL MACHINE OPERATOR Specimen Anatomical Collection Method Collection Time Receive d Time (Source) Location / / Volume Laterality Blood (Blood, 08/01/2020 8:46 AM 08/01/19 9:11 Venous) MUTUEL MACHINE OPERATOR AM MUTUEL MACHINE OPERATOR Naseema Gangat M.B.B.S. LAB BLOOD ADD-ON Performing Organization Address City/[facility]/ZIP Code Phon e Number [facility] - [address] [place], [place] [address] [place] [address] Magnesium (08/01/2020 8:46 AM MUTUEL MACHINE OPERATOR) P athologist Signature Magnesium, S 2.2 1.7 - 2.3 08/01/2020 DTL mg/dL 9:59 AM MUTUEL MACHINE OPERATOR Specimen Anatomical Collection Method Collection Time Receive d Time (Source) Location / / Volume Laterality Blood (Blood, 08/01/2020 8:46 AM 08/01/19 9:11 Venous) MUTUEL MACHINE OPERATOR AM MUTUEL MACHINE OPERATOR Naseema Gangat M.B.B.S. LAB BLOOD ADD-ON Performing Organization Address City/[facility]/ZIP Code Phon e Number [facility] - [address] Potassium (08/01/2020 8:46 AM MUTUEL MACHINE OPERATOR) P athologist Signature Potassium, S 4.4 3.6 - 5.2 08/01/2020 DTL mmol/L 9:59 AM MUTUEL MACHINE OPERATOR Specimen Anatomical Collection Method Collection Time Receive d Time (Source) Location / / Volume Laterality Blood (Blood, 08/01/2020 8:46 AM 08/01/19 9:11 Venous) MUTUEL MACHINE OPERATOR AM MUTUEL MACHINE OPERATOR Naseema Gangat M.B.B.S. LAB BLOOD ADD-ON Performing Organization Address City/[facility]/ZIP [facility] [place] Phon e Number [facility] - [address] [place] [address] [facility] Sodium (08/01/2020 8:46 AM MUTUEL MACHINE OPERATOR) P athologist Signature Sodium, S 143 135 - 145 08/01/2020 9:59 DTL mmol/L AM MUTUEL MACHINE OPERATOR Specimen Anatomical Collection Method Collection Time Receive d Time (Source) Location / / Volume Laterality Blood (Blood, 08/01/2020 8:46 AM 08/01/19 9:11 Venous) MUTUEL MACHINE OPERATOR AM MUTUEL MACHINE OPERATOR Janusz Govea M.B.B.S. LAB BLOOD ADD-ON Performing Organization Address City/[facility] Code Phon e Number [facility] - [address] [place] [address] [place] [address] [place], [place] [id number] [place] [address] Alkaline Phosphatase (08/01/2020 8:46 AM MUTUEL MACHINE OPERATOR) P athologist Signature Alkaline 38 35 - 104 08/01/2020 DTL Phosphatase, S U/L 9:59 AM MUTUEL MACHINE OPERATOR Specimen Anatomical Collection Method Collection Time Receive d Time (Source) Location / / Volume Laterality Blood (Blood, 08/01/2020 8:46 AM 08/01/19 9:11 Venous) MUTUEL MACHINE OPERATOR AM MUTUEL MACHINE OPERATOR Nasjonathan Govea M.B.B.S. LAB BLOOD ADD-ON Performing Organization Address City/[facility] Phon e Number [facility] - [address] [place] [address] [place] [address] [place] [address] [facility] [address] AST (Aspartate Aminotransferase) (08/01/2020 8:46 AM MUTUEL MACHINE OPERATOR) [facility] gist Method Time Signature Aspartate 33 8 - 43 08/01/2020 DTL Aminotransferase U/L 9:59 AM MUTUEL MACHINE OPERATOR (AST), S Specimen Anatomical Collection Method Collection Time Receive d Time (Source) Location / / Volume Laterality Blood (Blood, 08/01/2020 8:46 AM 08/01/19 9:11 Venous) MUTUEL MACHINE OPERATOR AM MUTUEL MACHINE OPERATOR Janusz Govea M.B.B.S. LAB BLOOD ADD-ON Performing Organization Address City/[facility]/ZIP [facility] [place] Phon e Number [facility] - [address] [place], [place] [address] [place] [address] [facility] ALT (Alanine Aminotransferase) (08/01/2020 8:46 AM MUTUEL MACHINE OPERATOR) Patholo gist Method Time Signature Alanine 12 7 - 45 08/01/2020 DTL Aminotransferase U/L 9:59 AM MUTUEL MACHINE OPERATOR (ALT), S Specimen Anatomical Collection Method Collection Time Receive d Time (Source) Location / / Volume Laterality Blood (Blood, 08/01/2020 8:46 AM 08/01/19 21 9:11 Venous) MUTUEL MACHINE OPERATOR AM MUTUEL MACHINE OPERATOR Janusz Ardon LAB BLOOD ADD-ON Performing Organization Address City/[facility]/ZIP Code Phon e Number [facility] - 200 [place], [place] [address] [facility] [place] [address] Laboratories-[facility] 200 [facility] (ABNORMAL) CBC with Differential, Blood (08/01/2020 8:46 AM MUTUEL MACHINE OPERATOR) [facility] gist Method Time Signature Hemoglobin 6.6 (L) 11.6 - 08/01/2020 DTL 15.0 g/dL 9:31 AM MUTUEL MACHINE OPERATOR Hematocrit 22.2 (L) 35.5 - 08/01/2020 DTL 44.9 % 9:31 AM MUTUEL MACHINE OPERATOR Erythrocytes 2.44 (L) 3.92 - 08/01/2020 DTL 5.13 9:31 AM MUTUEL MACHINE OPERATOR x10(12)/L MCV 91.0 78.2 - 08/01/2020 DTL 97.9 fL 9:31 AM MUTUEL MACHINE OPERATOR RBC Distrib Width 25.0 (H) 12.2 - 08/01/2020 DTL 16.1 % 9:31 AM MUTUEL MACHINE OPERATOR Platelet Count 74 (L) 157 - 371 08/01/2020 DTL x10(9)/L 10:46 AM MUTUEL MACHINE OPERATOR Comment: Results confirmed by smear, no clumping or interference seen. Leukocytes 2.8 (L) 3.4 - 9.6 x10(9)/L 08/01/2020 10:46 AM MUTUEL MACHINE OPERATOR DTL Comment: Results confirmed by smear. Neutrophils SeeComment 1.56 - 6.45 x10(9)/L 08/01/2020 10:46 AM MUTUEL MACHINE OPERATOR DTL Comment: Auto-diff results not valid. Se e manual differential. Specimen Anatomical Collection Method Collection Time Receive d Time (Source) Location / / Volume Laterality Blood (Blood, 08/01/2020 8:46 AM 08/01/19 21 9:15 Venous) MUTUEL MACHINE OPERATOR AM MUTUEL MACHINE OPERATOR Janusz Ardon LAB BLOOD ADD-ON Performing Organization Address City/State/ZIP Code Phon e Number [facility] - [address] [place], [place] [address] [facility] [place] [address] Laboratories-[facility] [address] documented in this encounter Visit Diagnoses Diagnosis Myelofibrosis (HCC) documented in this encounter
--- OUTSIDE RECORDS SUMMARY | 2022-05-02 12:09 | XMS_ITS | Encounter Summary ---
:1970 Author Organization [facility] Address [address] [place] [address] Care Team Providers Name Role Phone Unavailable Primary Care Provider Unavailable Reason for Referral Specialty Diagnoses / Procedures Referred By Contact Refer red To Contact Janusz Govea M.B .B.S. [address] [phone] Referral ID Status Reason Start Date Expiration Date Visits Requ ested Visits Authorized Scheduling Instructions Per Dr. Govea, schedule blood transfusi on every Friday and cancel if not needed. She will have chemo,cbc and tasr those days. Pt. Is noncompliant going to transfusions if they are not scheduled ahead of time. WARE ANALYST Encounter Details Date Type Department Care Team Description 07/18/2020 Clinical Communication Division of Hematology Janusz Govea, in [facility] NasrinS. 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 - 07/18/2020 9:19 AM SOFTWARE ANALYST I can pre schedule the transfusions. I just need to know what dates to do this. It says in the message she needs about every two weeks, but I need to know what day she is getting cbc's and may need blood to do this. Is it every Friday? I did not see her cbc's scheduled, but it may be because she is getting over at chemo? Usually we wait to see if someone needs blood before we schedule so we are not blocking ITC's spot and then cancelling, but I think they will be okk with it in this case. WARE ANALYST Telephone Encounter - Mary Ann Shaver R.N. - 07/18/2020 9:19 AM SOFTWARE ANALYST ----- Message from Reva Foreman sent at 07/17/2020 1:26 PM SOFTWARE ANALYST ----- Regarding: RE: Blood Transfusions We can pre-schedule the transfusions to ensure she receives them. Bre/deejay please help. Thanks. ----- Message ----- From: Krzysztof Pearce Sent: 07/17/2020 1:13 PM SOFTWARE ANALYST To: Reva Foreman, # Subject: Blood Transfusions Hi, the patient informed me that there's usually an issue when she's due a blood transfusion. She apparently needs them every 2 weeks but they're rarely scheduled or she has to skip it. Is there anything we can do to fix this? Thanks WARE ANALYST documented in this encounter Plan of Treatment Scheduled Referrals Name Type Priority Associated Diagnoses Order S chedule Blood Administration Outpatient Routine Myelofibrosis (HCC) weekly for 12 in Infusion Therapy; Referral Occurre nces starting 07/18/2020 unti l 07/18/2023 documented as of this encounter Visit Diagnoses Diagnosis Myelofibrosis (HCC) - Primary documented in this encounter
--- OUTSIDE RECORDS SUMMARY | 2022-05-02 12:09 | XMS_ITS | Encounter Summary ---
:1970 Author Organization [facility] Address [address] [place] [address] Care Team Providers Name Role Phone Unavailable Primary Care Provider Unavailable Reason for Referral Specialty Diagnoses / Procedures Referred By Contact Refer red To Contact Janusz Govea M.B .BZahraaS. [facility] [address] [place] [phone] Referral ID Status Reason Start Date Expiration Date Visits Requ ested Visits Authorized SITION NURSE Encounter Details Date Type Department Care Team Description 08/04/2020 Clinical Communication Division of Hematology Janusz Govea, in [facility] milton ArringtonB.S. [address] [place] [address] [place] [phone] Social History Tobacco Use Types Packs/Day Years Used Date Smoking Tobacco: Former Smokeless Tobacco: Never Sex Assigned at Date Recorded Female 07/24/2021 11:03 AM TRANSITION NURSE documented as of this encounter Miscellaneous Notes Telephone Encounter - Rojelio Tilley - 08/04/2020 12:25 PM CST Transfusion had already been scheduled for one unit of RBCs. Waiting on phone call back to set up labs for mon/thurs. Thanks. SITION NURSE Addendum Note - Mayank Galindo R.N. - 08/04/2020 12:16 PM TRANSITION NURSE Addended by: MAYANK GALINDO on: 08/04/2020 12:16 PM Modules accepted: Orders SITION NURSE Addendum Note - Bre Maddox R.N. - 08/04/2020 11:27 AM TRANSITION NURSE Addended by: BRE MADDOX on: 08/04/2020 11:27 AM Modules accepted: Orders SITION NURSE Telephone Encounter - Mayank Galindo R.N. - 08/04/2020 11:12 AM TRANSITION NURSE Patient has transfusion scheduled today SITION NURSE documented in this encounter Plan of Treatment Scheduled Referrals Name Type Priority Associated Diagnoses Order S chedule Blood Administration Outpatient Routine Myelofibrosis (HCC) Expected: in Infusion Therapy; Referral [id number], Expires: 08/04/2023 documented as of this encounter Visit Diagnoses Diagnosis Myelofibrosis (HCC) - Primary documented in this encounter
--- OUTSIDE RECORDS SUMMARY | 2022-05-02 12:09 | XMS_ITS | Encounter Summary ---
:1970 Author Organization [facility] Address [address] [place] [address] Care Team Providers Name Role Phone Unavailable Primary Care Provider Unavailable Reason for Visit Reason Comments Blood Product Administration Outpatient Infusion Encounter Details Date Type Department Care Team Description 07/27/2020 Infusion Department of Infusion Janusz Govea M yelofibrosis (HCC) [facility] [address] [phone] Social History Tobacco Use Types Packs/Day Years Used Date Smoking Tobacco: Former Smokeless Tobacco: Never Sex Assigned at Date Recorded Female 07/24/2021 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 documented as of this encounter Last Filed Vital Signs Vital Sign Reading Time Taken Comments Blood Pressure 120/95 07/27/2020 4:38 PM BINDERY MACHINE OPERATOR Pulse 89 07/27/2020 4:38 PM BINDERY MACHINE OPERATOR Temperature 36.8 ??C (98.2 ??F) 07/27/2020 4:38 PM BINDERY MACHINE OPERATOR Respiratory Rate 16 07/27/2020 4:38 PM BINDERY MACHINE OPERATOR Oxygen Saturation - - Inhaled Oxygen Concentration - - Weight - - Height - - Body Mass Index - - documented in this encounter Plan of Treatment Pending Results Name Type Priority Associated Diagnoses Date/Ti me Prepare Red Blood Blood Bank Routine Myelofibrosis (HCC) 9:17 AM BINDERY MACHINE OPERATOR Cells, 1 Units documented as of this encounter Procedures Procedure Name Priority Date/Time Associated Diagnosis Comme nts TRANSFUSE RED BLOOD Routine 07/27/2020 1:55 PM BINDERY MACHINE OPERATOR Myelofibros is (HCC) CELLS PREPARE RED BLOOD CELLS Routine 07/27/2020 9:17 AM BINDERY MACHINE OPERATOR Myelofi brosis (HCC) documented in this encounter Results Transfuse Red Blood Cells : (07/27/2020 4:40 PM BINDERY MACHINE OPERATOR) Naseema Gangat M.B.B.S. BLOOD TRANSFUSION ORDERABLES Transfuse Red Blood Cells : , 1 Units (07/27/2020 4:40 PM BINDERY MACHINE OPERATOR) Naseema Gangat M.B.B.S. BLOOD TRANSFUSION ORDERABLES documented in this encounter Visit Diagnoses Diagnosis Myelofibrosis (HCC) - Primary documented in this encounter Administered Medications Inactive Administered Medications - up to 3 most recent administrations Medication Order MAR Action Action Date Dose Rate Site sodium chloride 0.9 % injection 3 mL Given 07/27/2020 4:38 PM BINDERY MACHINE OPERATOR 3 mL 3 mL, intra-catheter, As needed, line care, Starting on Aruna 07/27/20 at 1342, Prior to and following infusion and between multiple consecutive infusions. documented in this encounter
--- OUTSIDE RECORDS SUMMARY | 2022-05-02 12:09 | XMS_ITS | Encounter Summary ---
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
--- OUTSIDE RECORDS SUMMARY | 2022-05-02 12:09 | XMS_ITS | Encounter Summary ---
:1970 Author Organization [facility] Address [address] [place] [address] Care Team Providers Name Role Phone Unavailable Primary Care Provider Unavailable Reason for Visit Reason Comments Blood Product Administration Encounter Details Date Type Department Care Team Description 07/24/2020 Infusion Department of Infusion Janusz Govea M 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 documented as of this encounter Last Filed Vital Signs Vital Sign Reading Time Taken Comments Blood Pressure 131/73 07/24/2020 6:59 PM BOXING INSTRUCTOR Pulse 83 07/24/2020 6:59 PM BOXING INSTRUCTOR Temperature 37 ??C (98.6 ??F) 07/24/2020 6:59 PM BOXING INSTRUCTOR Respiratory Rate 18 07/24/2020 6:59 PM BOXING INSTRUCTOR Oxygen Saturation - - Inhaled Oxygen Concentration - - Weight - - Height - - Body Mass Index - - documented in this encounter Plan of Treatment Pending Results Name Type Priority Associated Diagnoses Date/Ti me Prepare Red Blood Blood Bank Routine Myelofibrosis (HCC) 05/2021 8:50 AM BOXING INSTRUCTOR Cells, 1 Units documented as of this encounter Procedures Procedure Name Priority Date/Time Associated Diagnosis Comme nts TRANSFUSE RED BLOOD Routine 07/24/2020 4:18 PM BOXING INSTRUCTOR Myelofibros is (HCC) CELLS PREPARE RED BLOOD CELLS Routine 07/24/2020 8:50 AM BOXING INSTRUCTOR Myelofi brosis (HCC) documented in this encounter Results Transfuse Red Blood Cells : (07/24/2020 7:04 PM BOXING INSTRUCTOR) Janusz Govea M.B.B.S. BLOOD TRANSFUSION ORDERABLES Transfuse Red Blood Cells : , 1 Units (07/24/2020 7:04 PM BOXING INSTRUCTOR) Nasjonathan Ganwing M.B.B.S. BLOOD TRANSFUSION ORDERABLES documented in this encounter Visit Diagnoses Diagnosis Myelofibrosis (HCC) - Primary documented in this encounter Administered Medications Inactive Administered Medications - up to 3 most recent administrations Medication Order MAR Action Action Date Dose Rate Site NaCl 0.9% infusion New Bag 07/24/2020 6:38 PM BOXING INSTRUCTOR 150 mL/hr 150 mL/hr 10-250 mL/hr, intravenous, As needed, Post Medications (Hazardous/Low Fluid Volume), Starting on Fri07/24/20 at 1638, Infuse at the same rate as the medication until tubing cleared of medication, then discard. documented in this encounter
--- OUTSIDE RECORDS SUMMARY | 2022-05-02 12:09 | XMS_ITS | Encounter Summary ---
:1970 Author Organization [facility] Address [address] [place] [address] Care Team Providers Name Role Phone Unavailable Primary Care Provider Unavailable Encounter Details Date Type Department Care Team Description 08/02/2020 Infusion Department of Infusion Janusz Govea M yelofibrosis (HCC[facility] [address] [phone] [phone] Social History Tobacco Use Types Packs/Day Years Used Date Smoking Tobacco: Former Smokeless Tobacco: Never Sex Assigned at Date Recorded Female 07/24/2021 11:03 AM ORACLE DBA documented as of this encounter Last Filed Vital Signs Vital Sign Reading Time Taken Comments Blood Pressure 138/71 08/02/2020 3:51 PM ORACLE DBA Pulse 113 08/02/2020 3:51 PM ORACLE DBA Temperature 36.6 ??C (97.9 ??F) 08/02/2020 3:51 PM ORACLE DBA Respiratory Rate 20 08/02/2020 3:51 PM ORACLE DBA Oxygen Saturation - - Inhaled Oxygen Concentration - - Weight - - Height - - Body Mass Index - - documented in this encounter Plan of Treatment Not on filedocumented as of this encounter Procedures Procedure Name Priority Date/Time Associated Diagnosis Comme nts TRANSFUSE RED BLOOD Routine 08/02/2020 1:24 PM ORACLE DBA Myelofibros is (HCC) CELLS documented in this encounter Results Transfuse Red Blood Cells : (08/02/2020 3:52 PM ORACLE DBA) Janusz ArringtonBZahraaSZahraa BLOOD TRANSFUSION ORDERABLES Transfuse Red Blood Cells : , 1 Units (08/02/2020 3:52 PM ORACLE DBA) Janusz ArringtonBZahraaSZahraa BLOOD TRANSFUSION ORDERABLES documented in this encounter Visit Diagnoses Diagnosis Myelofibrosis (HCC) - Primary documented in this encounter Administered Medications Inactive Administered Medications - up to 3 most recent administrations Medication Order MAR Action Action Date Dose Rate Site NaCl 0.9% infusion New Bag 08/02/2020 3:29 PM 180 mL/hr 180 mL/hr 10-250 mL/hr, intravenous, As ORACLE DBA needed, Between Consecutive Piggyback Administrations, Starting on Fri08/02/20 at 1250, Infuse at the same rate as the piggyback until tubing clears or up to a volume of 20 mL. Select for IV medication administration when no maintenance IV available or when IV medications are not compatible with maintenance fluid. documented in this encounter
--- OUTSIDE RECORDS SUMMARY | 2022-05-02 12:09 | XMS_ITS | Encounter Summary ---
:1970 Author Organization [facility] Address [address] [place] [address] Care Team Providers Name Role Phone Unavailable Primary Care Provider Unavailable Reason for Visit Reason Comments Intake Assessment Encounter Details Date Type Department Care Team Description 07/31/2020 Clinical Communication Division of Tim Govea Hematology in [place], [place] M.B.B.S. 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 NCIAL SALES CONSULTANT documented in 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
--- OUTSIDE RECORDS SUMMARY | 2022-05-02 12:09 | XMS_ITS | Encounter Summary ---
:1970 Author Organization [facility] Address [address] [place] [address] Care Team Providers Name Role Phone Unavailable Primary Care Provider Unavailable Encounter Details Date Type Department Care Team Description 07/27/2020 Hospital Encounter Department of Gangat, Myelofib rosis ([facility]) Laboratory Medicine [facility], and Pathology, [facility], in [address] [place] [phone] [place], [place] [phone] (Work) [phone] Social History Tobacco Use Types Packs/Day Years Used Date Smoking Tobacco: Former Smokeless Tobacco: Never Sex Assigned at Date Recorded Female 07/24/2021 11:03 AM CLOUD ADMINISTRATOR documented as of this encounter Medications at [...] Associated Diagnosis Comme nts SPSMA RESULT Routine 07/27/2020 9:17 AM Results f or this CLOUD ADMINISTRATOR procedure are i n the results section. CBC WITH Routine 07/27/2020 9:17 AM Myelofibrosis (HCC) Re sults for this DIFFERENTIAL, B CLOUD ADMINISTRATOR procedure ar e in the results section. TYPE AND SCREEN Routine 07/27/2020 9:17 AM Myelofibrosis (HCC) Results for this CLOUD ADMINISTRATOR procedure are i n the results section. documented in this encounter Results (ABNORMAL) Morphology Evaluation (Special Smear) (07/27/2020 9:17 AM CLOUD ADMINISTRATOR) Patholo gist Method Time Signature Neutrophilic Segs 83 (H) 50 - 75 % 07/27/2020 DHPM and Bands 10:38 AM CLOUD ADMINISTRATOR Lymphocytes 8 (L) 18 - 42 % 07/27/2020 DHPM 10:38 AM CLOUD ADMINISTRATOR Eosinophils 2 1 - 3 % 07/27/2020 DHPM 10:38 AM CLOUD ADMINISTRATOR Basophils 1 0 - 2 % 07/27/2020 DHPM 10:38 AM CLOUD ADMINISTRATOR Metamyelocytes 4 (H) <1 % 07/27/2020 DHPM 10:38 AM CLOUD ADMINISTRATOR Myelocytes 2 (H) <0.5 % 07/27/2020 DHPM 10:38 AM CLOUD ADMINISTRATOR Nucleated RBC 9 /100 WBC 07/27/2020 DHPM 10:38 AM CLOUD ADMINISTRATOR Manual Absolute 1.91 1.56 - 07/27/2020 DHPM Neutrophil Count 6.45 10:38 AM CLOUD ADMINISTRATOR x10(9)/L Comment: ----ADDITIONAL INFORMATION---- The manual absolute neutrophil count is derived from a manual differential count and therefore is not exactly comparable to the automated absolute halie trophil count. Specimen Anatomical Collection Method Collection Time Receive d Time (Source) Location / / Volume Laterality Blood 07/27/2020 9:17 AM 9:42 CLOUD ADMINISTRATOR AM CLOUD ADMINISTRATOR Janusz AlexandraSZahraa LAB BLOOD ADD-ON Performing Organization Address City/[facility] Phon e Number [facility] - [address] [place], [place] [address] [place] [address] Laboratories-[facility] [address] [facility] (ABNORMAL) CBC with Differential, Blood (07/27/2020 9:17 AM CLOUD ADMINISTRATOR) [facility] gist Method Time Signature Hemoglobin 6.2 (L) 11.6 - 07/27/2020 DTL 15.0 g/dL 9:52 AM CLOUD ADMINISTRATOR Hematocrit 20.0 (L) 35.5 - 07/27/2020 DTL 44.9 % 9:52 AM CLOUD ADMINISTRATOR Erythrocytes 2.21 (L) 3.92 - 07/27/2020 DTL 5.13 9:52 AM CLOUD ADMINISTRATOR x10(12)/L MCV 90.5 78.2 - 07/27/2020 DTL 97.9 fL 9:52 AM CLOUD ADMINISTRATOR RBC Distrib Width 24.7 (H) 12.2 - 07/27/2020 DTL 16.1 % 9:52 AM CLOUD ADMINISTRATOR Platelet Count 81 (L) 157 - 371 07/27/2020 DTL x10(9)/L 9:52 AM CLOUD ADMINISTRATOR Leukocytes 2.3 (L) 3.4 - 9.6 07/27/2020 DTL x10(9)/L 10:38 AM CLOUD ADMINISTRATOR Comment: Results confirmed by smear. Neutrophils SeeComment 1.56 - 6.45 x10(9)/L 07/27/2020 10:38 AM CLOUD ADMINISTRATOR DTL Comment: Auto-diff results not valid. Se e manual differential. Specimen Anatomical Collection Method Collection Time Receive d Time (Source) Location / / Volume Laterality Blood (Blood, 07/27/2020 9:17 AM 07/27/19 9:42 Venous) CLOUD ADMINISTRATOR AM CLOUD ADMINISTRATOR Janusz AlexandraSZahraa LAB BLOOD ADD-ON Performing Organization Address City/[facility]/ZIP Code Phon e Number [facility] - [address] [place], [place] [address] [facility] [place] [address] Laboratories-[facility] [address] Type and Screen (with reflex Antibody ID) (07/27/2020 9:17 AM CLOUD ADMINISTRATOR) [facility] gist Method Time Signature ABORh A Pos Not 07/27/2020 ETRM applicable 10:54 AM CLOUD ADMINISTRATOR Antibody Negative Negative 07/27/2020 ETRM Screen 10:57 AM CLOUD ADMINISTRATOR Type & Screen 07/30/2020 07/27/2020 ETRM Expiration 23:59 10:54 AM CLOUD ADMINISTRATOR Testing Drew DEFAULT 07/27/2020 ETRM Location 9:49 AM CLOUD ADMINISTRATOR Specimen Anatomical Collection Method Collection Time Receive d Time (Source) Location / / Volume Laterality Blood (Blood, 07/27/2020 9:17 AM 07/27/19 9:49 Venous) CLOUD ADMINISTRATOR AM CLOUD ADMINISTRATOR Janusz Ardon LAB BLOOD BANK TEST ORDERABL ES Performing Organization Address City/State/ZIP Code Phon e Number [facility] - [address] [place] [address] [facility] [place] [address] Laboratories-[facility] [address] documented in this encounter Visit Diagnoses Diagnosis Myelofibrosis (HCC) documented in this encounter
--- OUTSIDE RECORDS SUMMARY | 2022-05-02 12:09 | XMS_ITS | Encounter Summary ---
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 documented as of this encounter Plan of Treatment Not on filedocumented as of this encounter Results Type and Screen (with reflex Antibody ID) (08/04/2020 10:17 AM MODELING INSTRUCTOR) [facility] gist Method Time Signature ABORh A Pos Not 08/04/2020 ETRM applicable 11:23 AM MODELING INSTRUCTOR Antibody Negative Negative 08/04/2020 ETRM Screen 11:36 AM MODELING INSTRUCTOR Type & Screen 08/07/2020 08/04/2020 ETRM Expiration 23:59 11:23 AM MODELING INSTRUCTOR Testing Deidra DEFAULT 08/04/2020 ETRM Location 10:45 AM MODELING INSTRUCTOR Specimen Anatomical Collection Method Collection Time Receive d Time (Source) Location / / Volume Laterality Blood (Blood, 08/04/2020 10:17 08/04/2020 Venous) AM MODELING INSTRUCTOR 10:45 AM MODELING INSTRUCTOR Janusz Ardon LAB BLOOD BANK TEST ORDERABL ES Performing Organization Address City/State/ZIP Code Phon e Number [facility] - [address] [place], [place] [address] [facility] [place] [address] Laboratories-[facility] [address] documented in this encounter Visit Diagnoses Diagnosis Myelofibrosis (HCC) - Primary documented in this encounter
--- OUTSIDE RECORDS SUMMARY | 2022-05-02 12:09 | XMS_ITS | Encounter Summary ---
:1970 Author Organization [facility] Address [address] [place] [address] Care Team Providers Name Role Phone Unavailable Primary Care Provider Unavailable Encounter Details Date Type Department Care Team Description 07/24/2020 Clinical Communication Division of Hematology [facility] in [facility] 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 documented as of this encounter Plan of Treatment Not on filedocumented as of this encounter Results (ABNORMAL) CBC with Differential, Blood (07/27/2020 9:17 AM HEAD CHARRER) [facility] Method Time Signature Hemoglobin 6.2 (L) 11.6 - 07/27/2020 DTL 15.0 g/dL 9:52 AM HEAD CHARRER Hematocrit 20.0 (L) 35.5 - 07/27/2020 DTL 44.9 % 9:52 AM HEAD CHARRER Erythrocytes 2.21 (L) 3.92 - 07/27/2020 DTL 5.13 9:52 AM HEAD CHARRER x10(12)/L MCV 90.5 78.2 - 07/27/2020 DTL 97.9 fL 9:52 AM HEAD CHARRER RBC Distrib Width 24.7 (H) 12.2 - 07/27/2020 DTL 16.1 % 9:52 AM HEAD CHARRER Platelet Count 81 (L) 157 - 371 07/27/2020 DTL x10(9)/L 9:52 AM HEAD CHARRER Leukocytes 2.3 (L) 3.4 - 9.6 07/27/2020 DTL x10(9)/L 10:38 AM HEAD CHARRER Comment: Results confirmed by smear. Neutrophils SeeComment 1.56 - 6.45 x10(9)/L 07/27/2020 10:38 AM HEAD CHARRER DTL Comment: Auto-diff results not valid. Se e manual differential. Specimen Anatomical Collection Method Collection Time Receive d Time (Source) Location / / Volume Laterality Blood (Blood, 07/27/2020 9:17 AM 07/27/19 9:42 Venous) HEAD CHARRER AM HEAD CHARRER Janusz Ardon LAB BLOOD ADD-ON Performing Organization Address City/State/ZIP Code Phon e Number [facility] - [address] [place], [place] [address] [facility] [place] [address] Laboratories-[facility] [address] documented in this encounter Visit Diagnoses Diagnosis Myelofibrosis (HCC) - Primary documented in this encounter
--- OUTSIDE RECORDS SUMMARY | 2022-05-02 12:09 | XMS_ITS | Encounter Summary ---
:1970 Author Organization [facility] Address [address] [place] [address] Care Team Providers Name Role Phone Unavailable Primary Care Provider Unavailable Reason for Visit Episode Based Medications (Routine) - Closed Specialty Diagnoses / Procedures Referred By Contact Refer red To Contact Medical Oncology / Diagnoses Myelofibrosis (HCC) Janusz Govea Rst Inf Onc [facility] Oncology Procedures ONCBCN INFUSION APPOINTMENT REQUEST 09 ONC THER INF M.B.B.S. [address] [place] [address] [place] [phone] Referral ID Status Reason Start Date Expiration Date Visits Requ ested Visits Authorized [id number] Closed 06/06/2020 06/20/2021 99 30 Encounter Details Date Type Department Care Team Description 07/27/2020 Infusion Department of Oncology Janusz Govea M yelofibrosis (HCC) in [facility] M.B.B.S. 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 of this encounter Last Filed Vital Signs Vital Sign Reading Time Taken Comments Blood Pressure 121/60 07/27/2020 10:20 AM AMBULANCE DISPATCHER Pulse 84 07/27/2020 10:20 AM AMBULANCE DISPATCHER Temperature 36.5 ??C (97.7 ??F) 07/27/2020 10:20 AM AMBULANCE DISPATCHER Respiratory Rate - - Oxygen Saturation - - Inhaled Oxygen Concentration - - Weight 94.7 kg (208 lb 14.2 oz) 07/27/2020 10:20 AM AMBULANCE DISPATCHER Height - - Body Mass Index 33.18 07/03/2020 9:03 AM AMBULANCE DISPATCHER documented in 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 Administered Medications Inactive Administered Medications - up to 3 most recent administrations Medication Order MAR Action Action Date Dose Rate Site Research IRB [id number] New Bag 07/27/2020 11:16 AM AMBULANCE DISPATCHER 1,130 mg 500 mL/hr 1,130 mg in NaCl 0.9% (non-PVC) 1,113 mL IVPB 1,130 mg (rounded from 1,132.12 mg = 12.4 mg/kg ? 91.3 kg Order-specific weight), intravenous, at 500 mL/hr, Once, On [facility] 07/27/20 at 1030, For 1 dose, CSTDs cannot be used. Flush with 30ml at IV site following completion of . Monitor BP (pre dose & post dose), HR, temp, resp (pre-dose and as clinically indicated). Administer using 1.2 micron filter tubing via a peripheral or central line. sodium chloride (flush) 0.9 % injection 30 mL Given 07/27/2020 1:16 PM AMBULANCE DISPATCHER 30 mL 30 mL, intravenous, Once, On Aruna 07/27/20 at 1030, For 1 dose, Post chemotherapy flush documented in this encounter
--- OUTSIDE RECORDS SUMMARY | 2022-05-02 12:09 | XMS_ITS | Encounter Summary ---
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
--- OUTSIDE RECORDS SUMMARY | 2022-05-02 12:09 | XMS_ITS | Encounter Summary ---
:1970 Author Organization [facility] Address [address] [place] [address] Care Team Providers Name Role Phone Unavailable Primary Care Provider Unavailable Encounter Details Date Type Department Care Team Description 07/18/2020 Orders Only Department of Oncology in Leann Pearce R.N. 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
--- OUTSIDE RECORDS SUMMARY | 2022-05-02 12:09 | XMS_ITS | Encounter Summary ---
:1970 Author Organization [facility] Address [address] [place] [address] Care Team Providers Name Role Phone Unavailable Primary Care Provider Unavailable Encounter Details Date Type Department Care Team Description 07/24/2020 Hospital Encounter Department of Gangat, Myelofib rosis ([facility]) Laboratory Medicine [facility], [facility] in [address] [place] [phone] [place], [place] [phone] (Work) [phone] Social History Tobacco Use Types Packs/Day Years Used Date Smoking Tobacco: Former Smokeless Tobacco: Never Sex Assigned at Date Recorded Female 07/24/2021 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 CBC WITH DIFFERENTIAL, B Routine 07/24/2020 8:50 Myelofibrosis (HCC) Results for this AM SAS PROGRAMMER REMOTE procedure are i n the results section. TYPE AND SCREEN Routine 07/24/2020 8:50 Myelofibrosis (HCC) Re sults for this AM SAS PROGRAMMER REMOTE procedure are i n the results section. URIC ACID, S/P Routine 07/24/2020 8:50 Myelofibrosis (HCC) Res ults for this AM SAS PROGRAMMER REMOTE procedure are i n the results section. BUN (BLOOD UREA Routine 07/24/2020 8:50 Myelofibrosis (HCC) Re sults for this NITROGEN), S/P AM SAS PROGRAMMER REMOTE procedure are in the results section. ALANINE AMINOTRANSFERASE Routine 07/24/2020 8:50 Myelofibrosis (HCC) Results for this (ALT), S/P AM SAS PROGRAMMER REMOTE procedure are i n the results section. ASPARTATE Routine 07/24/2020 8:50 Myelofibrosis (HCC) Resul ts for this AMINOTRANSFERASE (AST), AM SAS PROGRAMMER REMOTE proc edure are in S/P the results section. SODIUM, S/P Routine 07/24/2020 8:50 Myelofibrosis (HCC) Resul ts for this AM SAS PROGRAMMER REMOTE procedure are i n the results section. PROTEIN, TOTAL, S/P Routine 07/24/2020 8:50 Myelofibrosis (HCC ) Results for this AM SAS PROGRAMMER REMOTE procedure are i n the results section. POTASSIUM, S/P Routine 07/24/2020 8:50 Myelofibrosis (HCC) Res ults for this AM SAS PROGRAMMER REMOTE procedure are i n the results section. ALKALINE PHOSPHATASE, Routine 07/24/2020 8:50 Myelofibrosis (H CC) Results for this S/P AM SAS PROGRAMMER REMOTE procedure are i n the results section. MAGNESIUM, S Routine 07/24/2020 8:50 Myelofibrosis (HCC) Resul ts for this AM SAS PROGRAMMER REMOTE procedure are i n the results section. GLUCOSE, RANDOM, S/P Routine 07/24/2020 8:50 Myelofibrosis (HC C) Results for this AM SAS PROGRAMMER REMOTE procedure are i n the results section. CREATININE WITH EGFR, Routine 07/24/2020 8:50 Myelofibrosis (H CC) Results for this S/P AM SAS PROGRAMMER REMOTE procedure are i n the results section. CHLORIDE, S/P Routine 07/24/2020 8:50 Myelofibrosis (HCC) Resu lts for this AM SAS PROGRAMMER REMOTE procedure are i n the results section. CALCIUM, TOT, S/P Routine 07/24/2020 8:50 Myelofibrosis (HCC) Results for this AM SAS PROGRAMMER REMOTE procedure are i n the results section. BILIRUBIN, TOT, S/P Routine 07/24/2020 8:50 Myelofibrosis (HCC ) Results for this AM SAS PROGRAMMER REMOTE procedure are i n the results section. ALBUMIN, S/P Routine 07/24/2020 8:50 Myelofibrosis (HCC) Resul ts for this AM SAS PROGRAMMER REMOTE procedure are i n the results section. documented in this encounter Results (ABNORMAL) Morphology Evaluation (Special Smear) (07/24/2020 8:50 AM SAS PROGRAMMER REMOTE) Analysis Performed At Patho logist Time Signature Neutrophilic Segs 86 (H) 50 - 75 % 07/24/2020 DHPM and Bands 10:33 AM SAS PROGRAMMER REMOTE Lymphocytes 8 (L) 18 - 42 % 07/24/2020 DHPM 10:33 AM SAS PROGRAMMER REMOTE Monocytes 2 2 - 11 % 07/24/2020 DHPM 10:33 AM SAS PROGRAMMER REMOTE Eosinophils 1 1 - 3 % 07/24/2020 DHPM 10:33 AM SAS PROGRAMMER REMOTE Myelocytes 3 (H) <0.5 % 07/24/2020 DHPM 10:33 AM SAS PROGRAMMER REMOTE Nucleated RBC 4 /100 WBC 07/24/2020 DHPM 10:33 AM SAS PROGRAMMER REMOTE Manual Absolute 2.06 1.56 - 07/24/2020 DHPM Neutrophil Count 6.45 10:33 AM SAS PROGRAMMER REMOTE x10(9)/L Comment: ----ADDITIONAL INFORMATION---- The manual absolute neutrophil count is derived from a manual differential count and therefore is not exactly comparable to the automated absolute halie trophil count. Specimen Anatomical Collection Method Collection Time Receive d Time (Source) Location / / Volume Laterality Blood 07/24/2020 8:50 AM 9:22 SAS PROGRAMMER REMOTE AM SAS PROGRAMMER REMOTE Janusz ArringtonB.S. LAB BLOOD ADD-ON Performing Organization Address City/[facility] Phon e Number [facility] - [address] [place], [place] [address] [place] [address] [address] Type and Screen (with reflex Antibody ID) (07/24/2020 8:50 AM SAS PROGRAMMER REMOTE) Patholo gist Method Time Signature ABORh A Pos Not 07/24/2020 ETRM applicable 10:46 AM SAS PROGRAMMER REMOTE Antibody Negative Negative 07/24/2020 ETRM Screen 10:56 AM SAS PROGRAMMER REMOTE Type & Screen 07/27/2020 07/24/2020 ETRM Expiration 23:59 10:46 AM SAS PROGRAMMER REMOTE Testing Munger DEFAULT 07/24/2020 ETRM Location 9:34 AM SAS PROGRAMMER REMOTE Specimen Anatomical Collection Method Collection Time Receive d Time (Source) Location / / Volume Laterality Blood (Blood, 07/24/2020 8:50 AM 07/24/19 21 9:34 Venous) SAS PROGRAMMER REMOTE AM SAS PROGRAMMER REMOTE Janusz ArringtonB.S. LAB BLOOD BANK TEST ORDERABL ES Performing Organization Address [facility] Phon e Number [facility] - [address] [place], [place] [address] [facility] [place] [address] (ABNORMAL) Protein, Total (07/24/2020 8:50 AM SAS PROGRAMMER REMOTE) P athologist Signature Protein, 5.9 (L) 6.3 - 7.9 07/24/2020 DTL Total, S g/dL 9:46 AM SAS PROGRAMMER REMOTE Specimen Anatomical Collection Method Collection Time Receive d Time (Source) Location / / Volume Laterality Blood (Blood, 07/24/2020 8:50 AM 07/24/19 21 9:14 Venous) SAS PROGRAMMER REMOTE AM SAS PROGRAMMER REMOTE Janusz ArringtonB.S. LAB BLOOD ADD-ON Performing Organization Address City/State/ZIP Code Phon e Number [facility] - [address] [facility] Albumin (07/24/2020 8:50 AM SAS PROGRAMMER REMOTE) P athologist Signature Albumin, S 4.2 3.5 - 5.0 07/24/2020 DTL g/dL 9:46 AM SAS PROGRAMMER REMOTE Specimen Anatomical Collection Method Collection Time Receive d Time (Source) Location / / Volume Laterality Blood (Blood, 07/24/2020 8:50 AM 07/24/19 9:14 Venous) SAS PROGRAMMER REMOTE AM SAS PROGRAMMER REMOTE Janusz Holt.S. LAB BLOOD ADD-ON Performing Organization Address City/[facility]/ZIP Code Phon e Number [facility] - [address] [place] [address] [facility] Glucose, Random (07/24/2020 8:50 AM SAS PROGRAMMER REMOTE) P athologist Signature Glucose, S 131 70 - 140 07/24/2020 DTL mg/dL 9:46 AM SAS PROGRAMMER REMOTE Specimen Anatomical Collection Method Collection Time Receive d Time (Source) Location / / Volume Laterality Blood (Blood, 07/24/2020 8:50 AM 07/24/19 9:14 Venous) SAS PROGRAMMER REMOTE AM SAS PROGRAMMER REMOTE Janusz ArringtonB.S. LAB BLOOD TROPONIN Performing Organization Address City/State/ZIP Code Phon e Number [facility] - 200 [place], [place] [address] [place] [id number] [place] [address] [facility] Uric Acid (07/24/2020 8:50 AM SAS PROGRAMMER REMOTE) P athologist Signature Uric Acid, S 5.5 2.7 - 6.1 07/24/2020 DTL mg/dL 9:46 AM SAS PROGRAMMER REMOTE Specimen Anatomical Collection Method Collection Time Receive d Time (Source) Location / / Volume Laterality Blood (Blood, 07/24/2020 8:50 AM 07/24/19 9:14 Venous) SAS PROGRAMMER REMOTE AM SAS PROGRAMMER REMOTE Janusz ArringtonB.S. LAB BLOOD ADD-ON Performing Organization Address City/State/ZIP Code Phon e Number [facility] - [address] [place], [place] [address] [facility] [place] [address] Laboratories-[place] [address] [facility] Creatinine with Estimated GFR (07/24/2020 8:50 AM SAS PROGRAMMER REMOTE) athologist Signature Creatinine 0.95 0.59 - 07/24/2020 DTL 1.04 mg/dL 9:46 AM SAS PROGRAMMER REMOTE eGFR-Non 69 >=60 07/24/2020 DTL Black/ mL/min/BSA 9:46 AM SAS PROGRAMMER REMOTE Egyptian Comment: ----ADDITIONAL INFORMATION---- Estimated GFR calculated using the 2009 CKD_EPI creatinine equation. eGFR-Black/ 80 >=60 mL/min/BSA 2020 9:46 AM SAS PROGRAMMER REMOTE DTL Comment: ----ADDITIONAL INFORMATION---- Estimated GFR calculated using the 2009 CKD_EPI creatinine equation. Specimen Anatomical Collection Method Collection Time Receive d Time (Source) Location / / Volume Laterality Blood (Blood, 07/24/2020 8:50 AM 07/24/19 9:14 Venous) SAS PROGRAMMER REMOTE AM SAS PROGRAMMER REMOTE Janusz ArringtonB.S. LAB BLOOD ADD-ON Performing Organization Address City/[facility]/ZIP Code Phon e Number [facility] - [address] [place], [place] [address] [facility] [place] [address] [address] BUN (Blood Urea Nitrogen) (07/24/2020 8:50 AM SAS PROGRAMMER REMOTE) P athologist Signature BUN (Blood Urea 15 6 - 21 07/24/2020 DTL Nitrogen), S mg/dL 9:46 AM SAS PROGRAMMER REMOTE Specimen Anatomical Collection Method Collection Time Receive d Time (Source) Location / / Volume Laterality Blood (Blood, 07/24/2020 8:50 AM 07/24/19 9:14 Venous) SAS PROGRAMMER REMOTE AM SAS PROGRAMMER REMOTE Janusz ArringtonB.S. LAB BLOOD ADD-ON Performing Organization Address City/State/ZIP Code Phon e Number [facility] - [address] Bilirubin, Total (07/24/2020 8:50 AM SAS PROGRAMMER REMOTE) athologist Signature Bilirubin, 0.7 <=1.2 mg/dL 07/24/2020 DTL Total, S 9:46 AM SAS PROGRAMMER REMOTE Specimen Anatomical Collection Method Collection Time Receive d Time (Source) Location / / Volume Laterality Blood (Blood, 07/24/2020 8:50 AM 07/24/19 9:14 Venous) SAS PROGRAMMER REMOTE AM SAS PROGRAMMER REMOTE Janusz Higgins.B.S. LAB BLOOD ADD-ON Performing Organization Address City/[facility] Phon e Number [facility] - [address] (ABNORMAL) Calcium, Total (07/24/2020 8:50 AM SAS PROGRAMMER REMOTE) athologist Signature Calcium, 8.5 (L) 8.6 - 10.0 07/24/2020 DTL Total, S mg/dL 9:58 AM SAS PROGRAMMER REMOTE Specimen Anatomical Collection Method Collection Time Receive d Time (Source) Location / / Volume Laterality Blood (Blood, 07/24/2020 8:50 AM 07/24/19 9:14 Venous) SAS PROGRAMMER REMOTE AM SAS PROGRAMMER REMOTE Janusz HayesB.B.S. LAB BLOOD ADD-ON Performing Organization Address City/State/[facility] Code Phon e Number [facility] - [address] (ABNORMAL) Chloride (07/24/2020 8:50 AM SAS PROGRAMMER REMOTE) athologist Signature Chloride, S 108 (H) 98 - 107 07/24/2020 DTL mmol/L 9:46 AM SAS PROGRAMMER REMOTE Specimen Anatomical Collection Method Collection Time Receive d Time (Source) Location / / Volume Laterality Blood (Blood, 07/24/2020 8:50 AM 07/24/19 9:14 Venous) SAS PROGRAMMER REMOTE AM SAS PROGRAMMER REMOTE Naseema Gangat M.Cain.B.S. LAB BLOOD ADD-ON Performing Organization Address City/[facility]/ZIP [facility] Phon e Number [facility] - [address] 200 [facility] Magnesium (07/24/2020 8:50 AM SAS PROGRAMMER REMOTE) P athologist Signature Magnesium, S 2.1 1.7 - 2.3 07/24/2020 DTL mg/dL 9:46 AM SAS PROGRAMMER REMOTE Specimen Anatomical Collection Method Collection Time Receive d Time (Source) Location / / Volume Laterality Blood (Blood, 07/24/2020 8:50 AM 07/24/19 9:14 Venous) SAS PROGRAMMER REMOTE AM SAS PROGRAMMER REMOTE Janusz Dillon.B.B.S. LAB BLOOD ADD-ON Performing Organization Address City/[facility] Phon e Number [facility] - [phone] [place] [address] Potassium (07/24/2020 8:50 AM SAS PROGRAMMER REMOTE) athologist Signature Potassium, S 4.2 3.6 - 5.2 07/24/2020 DTL mmol/L 9:46 AM SAS PROGRAMMER REMOTE Specimen Anatomical Collection Method Collection Time Receive d Time (Source) Location / / Volume Laterality Blood (Blood, 07/24/2020 8:50 AM 07/24/19 9:14 Venous) SAS PROGRAMMER REMOTE AM SAS PROGRAMMER REMOTE Janusz Dillon.B.B.S. LAB BLOOD ADD-ON Performing Organization Address City/State/ZIP Code Phon e Number [facility] - 200 [place], [place] [address] [place] [address] Sodium (07/24/2020 8:50 AM SAS PROGRAMMER REMOTE) P athologist Signature Sodium, S 143 135 - 145 07/24/2020 9:46 DTL mmol/L AM SAS PROGRAMMER REMOTE Specimen Anatomical Collection Method Collection Time Receive d Time (Source) Location / / Volume Laterality Blood (Blood, 07/24/2020 8:50 AM 01/11/20 21 9:14 Venous) SAS PROGRAMMER REMOTE AM SAS PROGRAMMER REMOTE Nasjonathan Govea M.B.B.S. LAB BLOOD ADD-ON Performing Organization Address City/[facility]/ZIP Code Phon e Number [facility] - [address] [place], [place] [address] [place], [place] [phone] [place] [address] [address] [facility] Alkaline Phosphatase (07/24/2020 8:50 AM SAS PROGRAMMER REMOTE) P athologist Signature Alkaline 36 35 - 104 07/24/2020 DTL Phosphatase, S U/L 9:46 AM SAS PROGRAMMER REMOTE Specimen Anatomical Collection Method Collection Time Receive d Time (Source) Location / / Volume Laterality Blood (Blood, 07/24/2020 8:50 AM 07/24/19 9:14 Venous) SAS PROGRAMMER REMOTE AM SAS PROGRAMMER REMOTE Janusz Govea M.B.B.S. LAB BLOOD ADD-ON Performing Organization Address City/[facility] Phon e Number [facility] - [address] [place] [address] [address] [facility] [place] [address] [facility] [address] [facility] AST (Aspartate Aminotransferase) (07/24/2020 8:50 AM SAS PROGRAMMER REMOTE) [facility] gist Method Time Signature Aspartate 27 8 - 43 07/24/2020 DTL Aminotransferase U/L 9:46 AM SAS PROGRAMMER REMOTE (AST), S Specimen Anatomical Collection Method Collection Time Receive d Time (Source) Location / / Volume Laterality Blood (Blood, 07/24/2020 8:50 AM 07/24/19 21 9:14 Venous) SAS PROGRAMMER REMOTE AM SAS PROGRAMMER REMOTE Nasjonathan Govea M.B.B.S. LAB BLOOD ADD-ON Performing Organization Address City/State/ZIP Code Phon e Number [facility] - [address] [place], [place] [address] [place] [address] [facility] ALT (Alanine Aminotransferase) (07/24/2020 8:50 AM SAS PROGRAMMER REMOTE) Patholo gist Method Time Signature Alanine 9 7 - 45 07/24/2020 DTL Aminotransferase U/L 9:46 AM SAS PROGRAMMER REMOTE (ALT), S Specimen Anatomical Collection Method Collection Time Receive d Time (Source) Location / / Volume Laterality Blood (Blood, 07/24/2020 8:50 AM 07/24/19 21 9:14 Venous) SAS PROGRAMMER REMOTE AM SAS PROGRAMMER REMOTE Janusz AlexandraSZahraa LAB BLOOD ADD-ON Performing Organization Address City/[facility] Code Phon e Number [facility] - [address] [place] [address] Laboratories-[facility] [address] [facility] (ABNORMAL) CBC with Differential, Blood (07/24/2020 8:50 AM SAS PROGRAMMER REMOTE) [facility] Method Time Signature Hemoglobin 5.9 (CL) 11.6 - 07/24/2020 DTL 15.0 g/dL 9:58 AM SAS PROGRAMMER REMOTE Hematocrit 18.9 (L) 35.5 - 07/24/2020 DTL 44.9 % 9:58 AM SAS PROGRAMMER REMOTE Erythrocytes 2.10 (L) 3.92 - 07/24/2020 DTL 5.13 9:58 AM SAS PROGRAMMER REMOTE x10(12)/L MCV 90.0 78.2 - 07/24/2020 DTL 97.9 fL 9:58 AM SAS PROGRAMMER REMOTE RBC Distrib Width 24.4 (H) 12.2 - 07/24/2020 DTL 16.1 % 9:58 AM SAS PROGRAMMER REMOTE Platelet Count 70 (L) 157 - 371 07/24/2020 DTL x10(9)/L 9:58 AM SAS PROGRAMMER REMOTE Leukocytes 2.4 (L) 3.4 - 9.6 07/24/2020 DTL x10(9)/L 10:33 AM SAS PROGRAMMER REMOTE Comment: Results confirmed by smear. Neutrophils SeeComment 1.56 - 6.45 x10(9)/L 07/24/2020 10:33 AM SAS PROGRAMMER REMOTE DTL Comment: Auto-diff results not valid. Se e manual differential. Specimen Anatomical Collection Method Collection Time Receive d Time (Source) Location / / Volume Laterality Blood (Blood, 07/24/2020 8:50 AM 07/24/19 21 9:22 Venous) SAS PROGRAMMER REMOTE AM SAS PROGRAMMER REMOTE Janusz AlexandraS. LAB BLOOD ADD-ON Performing Organization Address City/[facility] Phon e Number [facility] - [address] [place] [address] [facility] [address] documented in this encounter Visit Diagnoses Diagnosis Myelofibrosis (HCC) documented in this encounter
--- OUTSIDE RECORDS SUMMARY | 2022-05-02 12:09 | XMS_ITS | Encounter Summary ---
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 encounter Plan of Treatment Not on filedocumented as of this encounter Results (ABNORMAL) CBC with Differential, Blood (08/04/2020 10:17 AM HOISTING ENGINEER) [facility] Time Signature Hemoglobin 6.8 (L) 11.6 - 08/04/2020 DTL 15.0 g/dL 10:46 AM HOISTING ENGINEER Hematocrit 23.1 (L) 35.5 - 08/04/2020 DTL 44.9 % 10:46 AM HOISTING ENGINEER Erythrocytes 2.52 (L) 3.92 - 08/04/2020 DTL 5.13 10:46 AM HOISTING ENGINEER x10(12)/L MCV 91.7 78.2 - 08/04/2020 DTL 97.9 fL 10:46 AM HOISTING ENGINEER RBC Distrib Width 24.5 (H) 12.2 - 08/04/2020 DTL 16.1 % 10:46 AM HOISTING ENGINEER Platelet Count 74 (L) 157 - 371 08/04/2020 DTL x10(9)/L 10:46 AM HOISTING ENGINEER Leukocytes 2.5 (L) 3.4 - 9.6 08/04/2020 DTL x10(9)/L 11:49 AM HOISTING ENGINEER Comment: Results confirmed by smear. Neutrophils SeeComment 1.56 - 6.45 x10(9)/L 08/04/2020 11:49 AM HOISTING ENGINEER DTL Comment: Auto-diff results not valid. Se e manual differential. Specimen Anatomical Collection Method Collection Time Receive d Time (Source) Location / / Volume Laterality Blood (Blood, 08/04/2020 10:17 08/04/2020 Venous) AM HOISTING ENGINEER 10:40 AM HOISTING ENGINEER Janusz Ardon LAB BLOOD ADD-ON Performing Organization Address City/State/ZIP Code Phon e Number [facility] - [address] [place], [place] [address] [facility] [place] [address] Laboratories-[facility] [address] documented in this encounter Visit Diagnoses Diagnosis Myelofibrosis (HCC) - Primary documented in this encounter
--- OUTSIDE RECORDS SUMMARY | 2022-05-02 12:09 | XMS_ITS | Encounter Summary ---
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
--- OUTSIDE RECORDS SUMMARY | 2022-05-02 12:10 | XMS_ITS | Encounter Summary ---
:1970 Author Organization [facility] Address [address] [place] [address] Care Team Providers Name Role Phone Unavailable Primary Care Provider Unavailable Encounter Details Date Type Department Care Team Description 07/13/2020 Orders Only Division of Mary Ann Shaver Myelofibro sis (HCC) Hematology in [place] 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
--- OUTSIDE RECORDS SUMMARY | 2022-05-02 12:10 | XMS_ITS | Encounter Summary ---
:1970 Author Organization [facility] Address [address] [place] [address] Care Team Providers Name Role Phone Unavailable Primary Care Provider Unavailable Encounter Details Date Type Department Care Team Description 07/03/2020 Hospital Encounter Department of Gangat, Myelofib rosis ([facility]) Laboratory Medicine [facility], and Pathology, [facility], in [address] [place] [phone] [place], [place] [phone] (Work) [phone] Social History Tobacco Use Types Packs/Day Years Used Date Smoking Tobacco: Former Smokeless Tobacco: Never Sex Assigned at Date Recorded Female 07/24/2021 11:03 AM USED [employer] documented as of this encounter Medications at [...] Associated Diagnosis Comme nts SPSMA RESULT Routine 07/03/2020 7:46 Results for this AM USED [employer] procedure are i n the results section. CBC WITH DIFFERENTIAL, B Routine 07/03/2020 7:46 Myelofibrosis (HCC) Results for this AM USED [employer] procedure are i n the results section. TYPE AND SCREEN Routine 07/03/2020 7:46 Myelofibrosis (HCC) Re sults for this AM USED [employer] procedure are i n the results section. URIC ACID, S/P Routine 07/03/2020 7:46 Myelofibrosis (HCC) Res ults for this AM USED [employer] procedure are i n the results section. BUN (BLOOD UREA Routine 07/03/2020 7:46 Myelofibrosis (HCC) Re sults for this NITROGEN), S/P AM USED [employer] procedure are in the results section. ALANINE AMINOTRANSFERASE Routine 07/03/2020 7:46 Myelofibrosis (HCC) Results for this (ALT), S/P AM USED [employer] procedure are i n the results section. ASPARTATE Routine 07/03/2020 7:46 Myelofibrosis (HCC) Resul ts for this AMINOTRANSFERASE (AST), AM USED [employer] proc edure are in S/P the results section. SODIUM, S/P Routine 07/03/2020 7:46 Myelofibrosis (HCC) Resul ts for this AM USED [employer] procedure are i n the results section. PROTEIN, TOTAL, S/P Routine 07/03/2020 7:46 Myelofibrosis (HCC ) Results for this AM USED [employer] procedure are i n the results section. POTASSIUM, S/P Routine 07/03/2020 7:46 Myelofibrosis (HCC) Res ults for this AM USED [employer] procedure are i n the results section. ALKALINE PHOSPHATASE, Routine 07/03/2020 7:46 Myelofibrosis (H CC) Results for this S/P AM USED [employer] procedure are i n the results section. MAGNESIUM, S Routine 07/03/2020 7:46 Myelofibrosis (HCC) Resul ts for this AM USED [employer] procedure are i n the results section. GLUCOSE, RANDOM, S/P Routine 07/03/2020 7:46 Myelofibrosis (HC C) Results for this AM USED [employer] procedure are i n the results section. CREATININE WITH EGFR, Routine 07/03/2020 7:46 Myelofibrosis (H CC) Results for this S/P AM USED [employer] procedure are i n the results section. CHLORIDE, S/P Routine 07/03/2020 7:46 Myelofibrosis (HCC) Resu lts for this AM USED [employer] procedure are i n the results section. CALCIUM, TOT, S/P Routine 07/03/2020 7:46 Myelofibrosis (HCC) Results for this AM USED [employer] procedure are i n the results section. BILIRUBIN, TOT, S/P Routine 07/03/2020 7:46 Myelofibrosis (HCC ) Results for this AM USED [employer] procedure are i n the results section. ALBUMIN, S/P Routine 07/03/2020 7:46 Myelofibrosis (HCC) Resul ts for this AM USED [employer] procedure are i n the results section. documented in this encounter Results (ABNORMAL) Morphology Evaluation (Special Smear) (07/03/2020 7:46 AM USED [employer]) [facility] gist Method Time Signature Neutrophilic Segs 85 (H) 50 - 75 % 07/03/2020 DHPM and Bands 9:30 AM USED [employer] Lymphocytes 6 (L) 18 - 42 % 07/03/2020 DHPM 9:30 AM USED [employer] Monocytes 4 2 - 11 % 07/03/2020 DHPM 9:30 AM USED [employer] Basophils 1 0 - 2 % 07/03/2020 DHPM 9:30 AM USED [employer] Metamyelocytes 3 (H) <1 % 07/03/2020 DHPM 9:30 AM USED [employer] Myelocytes 1 (H) <0.5 % 07/03/2020 DHPM 9:30 AM USED [employer] Nucleated RBC 3 /100 WBC 07/03/2020 DHPM 9:30 AM USED [employer] Manual Absolute 2.81 1.56 - 07/03/2020 DHPM Neutrophil Count 6.45 9:30 AM USED [employer] x10(9)/L Comment: ----ADDITIONAL INFORMATION---- The manual absolute neutrophil count is derived from a manual differential count and therefore is not exactly comparable to the automated absolute halie trophil count. Specimen Anatomical Collection Method Collection Time Receive d Time (Source) Location / / Volume Laterality Blood 07/03/2020 7:46 AM 0 8:16 USED [employer] AM USED [employer] Janusz ArringtonB.S. LAB BLOOD ADD-ON Performing Organization Address City/[facility] Phon e Number [facility] - 200 [place], [place] [address] [place] [address] [address] Type and Screen (with reflex Antibody ID) (07/03/2020 7:46 AM USED [employer]) Patholo gist Method Time Signature ABORh A Pos Not 07/03/2020 ETRM applicable 9:23 AM USED [employer] Antibody Negative Negative 07/03/2020 ETRM Screen 9:35 AM USED [employer] Type & Screen 07/06/2020 07/03/2020 ETRM Expiration 23:59 9:23 AM USED [employer] Testing [place] DEFAULT 07/03/2020 ETRM Location 8:18 AM USED [employer] Specimen Anatomical Collection Method Collection Time Receive d Time (Source) Location / / Volume Laterality Blood (Blood, 07/03/2020 7:46 AM 07/03/20 20 8:18 Venous) USED [employer] AM USED [employer] Janusz ArringtonB.S. LAB BLOOD BANK TEST ORDERABL ES Performing Organization Address [facility] Phon e Number [facility] - 200 [place], [place] [address] [facility] [place] [address] [address] Protein, Total (07/03/2020 7:46 AM USED [employer]) P athologist Signature Protein, Total, 6.3 6.3 - 7.9 07/03/2020 DTL S g/dL 9:00 AM USED [employer] Specimen Anatomical Collection Method Collection Time Receive d Time (Source) Location / / Volume Laterality Blood (Blood, 07/03/2020 7:46 AM 07/03/20 20 8:15 Venous) USED [employer] AM USED [employer] Janusz ArringtonB.S. LAB BLOOD ADD-ON Performing Organization Address City/[facility] Phon e Number [facility] - [address] [place], [place] [address] [place] [id number] Albumin (07/03/2020 7:46 AM USED [employer]) athologist Signature Albumin, S 4.4 3.5 - 5.0 07/03/2020 DTL g/dL 9:00 AM USED [employer] Specimen Anatomical Collection Method Collection Time Receive d Time (Source) Location / / Volume Laterality Blood (Blood, 07/03/2020 7:46 AM 07/03/20 8:15 Venous) USED [employer] AM USED [employer] Nasjonathan Mcdonaldgat M.B.B.S. LAB BLOOD ADD-ON Performing Organization Address City/[facility] Phon e Number [facility] - [id number] [place] [address] Glucose, Random (07/03/2020 7:46 AM USED [employer]) athologist Signature Glucose, S 133 70 - 140 07/03/2020 DTL mg/dL 9:00 AM USED [employer] Specimen Anatomical Collection Method Collection Time Receive d Time (Source) Location / / Volume Laterality Blood (Blood, 07/03/2020 7:46 AM 07/03/20 8:15 Venous) USED [employer] AM USED [employer] Janusz Govea M.B.B.S. LAB BLOOD TROPONIN Performing Organization Address City/[facility]/ZIP [facility] Phon e Number [facility] - [address] [place] [address] 05 [place] [address] Uric Acid (07/03/2020 7:46 AM USED [employer]) athologist Signature Uric Acid, S 4.2 2.7 - 6.1 07/03/2020 DTL mg/dL 9:00 AM USED [employer] Specimen Anatomical Collection Method Collection Time Receive d Time (Source) Location / / Volume Laterality Blood (Blood, 07/03/2020 7:46 AM 07/03/20 8:15 Venous) USED [employer] AM USED [employer] Naseema Gangat M.B.B.S. LAB BLOOD ADD-ON Performing Organization Address City/State/ZIP Code Phon e Number [facility] - [address] [place], [place] [address] [place] [address] Creatinine with Estimated GFR (07/03/2020 7:46 AM USED [employer]) athologist Signature Creatinine 1.02 0.59 - 07/03/2020 DTL 1.04 mg/dL 9:00 AM USED [employer] eGFR-Non 63 >=60 07/03/2020 DTL Black/ mL/min/BSA 9:00 AM USED [employer] Panamanian Comment: ----ADDITIONAL INFORMATION---- Estimated GFR calculated using the 2009 CKD_EPI creatinine equation. eGFR-Black/ 73 >=60 mL/min/BSA 2019 9:00 AM USED [employer] DTL Comment: ----ADDITIONAL INFORMATION---- Estimated GFR calculated using the 2009 CKD_EPI creatinine equation. Specimen Anatomical Collection Method Collection Time Receive d Time (Source) Location / / Volume Laterality Blood (Blood, 07/03/2020 7:46 AM 07/03/20 8:15 Venous) USED [employer] AM USED [employer] Janusz Dillon.Cain.B.S. LAB BLOOD ADD-ON Performing Organization Address City/State/ZIP Code Phon e Number [facility] - [address] [place], [place] [address] [place] [address] [facility] [address] SW BUN (Blood Urea Nitrogen) (07/03/2020 7:46 AM USED [employer]) athologist Signature BUN (Blood Urea 20 6 - 21 07/03/2020 DTL Nitrogen), S mg/dL 9:00 AM USED [employer] Specimen Anatomical Collection Method Collection Time Receive d Time (Source) Location / / Volume Laterality Blood (Blood, 07/03/2020 7:46 AM 07/03/20 8:15 Venous) USED [employer] AM USED [employer] Janusz Govea M.B.B.S. LAB BLOOD ADD-ON Performing Organization Address City/State/ZIP Code Phon e Number [facility] - [address] [place], [place] [address] [place] [address] [facility] [address] Bilirubin, Total (07/03/2020 7:46 AM USED [employer]) athologist Signature Bilirubin, 0.6 <=1.2 mg/dL 07/03/2020 DTL Total, S 9:00 AM USED [employer] Specimen Anatomical Collection Method Collection Time Receive d Time (Source) Location / / Volume Laterality Blood (Blood, 07/03/2020 7:46 AM 07/03/20 8:15 Venous) USED [employer] AM USED [employer] Nasjonathan Mcdonaldgat M.B.B.S. LAB BLOOD ADD-ON Performing Organization Address City/State/[facility] Phon e Number [facility] - [address] 200 [facility] Calcium, Total (07/03/2020 7:46 AM USED [employer]) athologist Signature Calcium, Total, 8.6 8.6 - 10.0 07/03/2020 DTL S mg/dL 9:00 AM USED [employer] Specimen Anatomical Collection Method Collection Time Receive d Time (Source) Location / / Volume Laterality Blood (Blood, 07/03/2020 7:46 AM 07/03/20 8:15 Venous) USED [employer] AM USED [employer] Nasjonathan Gangat M.B.B.S. LAB BLOOD ADD-ON Performing Organization Address City/[facility] Phon e Number [facility] - [address] (ABNORMAL) Chloride (07/03/2020 7:46 AM USED [employer]) athologist Signature Chloride, S 109 (H) 98 - 107 07/03/2020 DTL mmol/L 9:00 AM USED [employer] Specimen Anatomical Collection Method Collection Time Receive d Time (Source) Location / / Volume Laterality Blood (Blood, 07/03/2020 7:46 AM 07/03/20 8:15 Venous) USED [employer] AM USED [employer] Nasbaltazarma Harrygat M.B.B.S. LAB BLOOD ADD-ON Performing Organization Address City/[facility] Phon e Number [facility] - [address] [address] [facility] [address] Magnesium (07/03/2020 7:46 AM USED [employer]) athologist Signature Magnesium, S 2.0 1.7 - 2.3 07/03/2020 DTL mg/dL 9:00 AM USED [employer] Specimen Anatomical Collection Method Collection Time Receive d Time (Source) Location / / Volume Laterality Blood (Blood, 07/03/2020 7:46 AM 07/03/20 20 8:15 Venous) USED [employer] AM USED [employer] Naseema Gangat M.B.B.S. LAB BLOOD ADD-ON Performing Organization Address City/[facility]/ZIP [facility] Phon e Number [facility] [address] [address] [facility] [address] Potassium (07/03/2020 7:46 AM USED [employer]) athologist Signature Potassium, S 4.1 3.6 - 5.2 07/03/2020 DTL mmol/L 9:00 AM USED [employer] Specimen Anatomical Collection Method Collection Time Receive d Time (Source) Location / / Volume Laterality Blood (Blood, 07/03/2020 7:46 AM 07/03/20 8:15 Venous) USED [employer] AM USED [employer] Naseema Gangat M.B.B.S. LAB BLOOD ADD-ON Performing Organization Address City/State/ZIP Code Phon e Number [facility] - [address] [address] [facility] [address] Sodium (07/03/2020 7:46 AM USED [employer]) athologist Signature Sodium, S 144 135 - 145 07/03/2020 9:00 DTL mmol/L AM USED [employer] Specimen Anatomical Collection Method Collection Time Receive d Time (Source) Location / / Volume Laterality Blood (Blood, 07/03/2020 7:46 AM 07/03/20 20 8:15 Venous) USED [employer] AM USED [employer] Naseema Gangat M.B.B.S. LAB BLOOD ADD-ON Performing Organization Address City/State/ZIP Code Phon e Number [facility] - [address] [address] [facility] [address] Alkaline Phosphatase (07/03/2020 7:46 AM USED [employer]) P athologist Signature Alkaline 46 35 - 104 07/03/2020 DTL Phosphatase, S U/L 9:00 AM USED [employer] Specimen Anatomical Collection Method Collection Time Receive d Time (Source) Location / / Volume Laterality Blood (Blood, 07/03/2020 7:46 AM 07/03/20 8:15 Venous) USED [employer] AM USED [employer] Janusz Govea M.B.B.S. LAB BLOOD ADD-ON Performing Organization Address City/[facility]/ZIP Code Phon e Number [facility] - [address] [address] [facility] [address] AST (Aspartate Aminotransferase) (07/03/2020 7:46 AM USED [employer]) [facility] gist Method Time Signature Aspartate 29 8 - 43 07/03/2020 DTL Aminotransferase U/L 9:00 AM USED [employer] (AST), S Specimen Anatomical Collection Method Collection Time Receive d Time (Source) Location / / Volume Laterality Blood (Blood, 07/03/2020 7:46 AM 07/03/20 8:15 Venous) USED [employer] AM USED [employer] Jnausz Dillon.B.B.S. LAB BLOOD ADD-ON Performing Organization Address City/State/ZIP Code Phon e Number [facility] - [address] [place] [address] 05 [place] [address] [facility] [address] ALT (Alanine Aminotransferase) (07/03/2020 7:46 AM USED [facility] [employer] [facility]) [facility] Method Time Signature Alanine 15 7 - 45 07/03/2020 DTL Aminotransferase U/L 9:00 AM USED [employer] (ALT), S Specimen Anatomical Collection Method Collection Time Receive d Time (Source) Location / / Volume Laterality Blood (Blood, 07/03/2020 7:46 AM 07/03/20 20 8:15 Venous) USED [employer] AM USED [employer] Janusz Govea M.B.B.S. LAB BLOOD ADD-ON Performing Organization Address City/State/ZIP Code Phon e Number [facility] - [address] [place] [address] [address] [place] [place] [address] [facility] 200 [facility] (ABNORMAL) CBC with Differential, Blood (07/03/2020 7:46 AM USED [employer]) [facility] Method Time Signature Hemoglobin 6.9 (L) 11.6 - 07/03/2020 DTL 15.0 g/dL 8:30 AM USED [employer] Hematocrit 22.1 (L) 35.5 - 07/03/2020 DTL 44.9 % 8:30 AM USED [employer] Erythrocytes 2.45 (L) 3.92 - 07/03/2020 DTL 5.13 8:30 AM USED [employer] x10(12)/L MCV 90.2 78.2 - 07/03/2020 DTL 97.9 fL 8:30 AM USED [employer] RBC Distrib Width 25.9 (H) 12.2 - 07/03/2020 DTL 16.1 % 8:30 AM USED [employer] Platelet Count 136 (L) 157 - 371 07/03/2020 DTL x10(9)/L 8:30 AM USED [employer] Leukocytes 3.3 (L) 3.4 - 9.6 07/03/2020 DTL x10(9)/L 9:30 AM USED [employer] Comment: Results confirmed by smear. Neutrophils SeeComment 1.56 - 6.45 x10(9)/L 07/03/2020 9:30 AM USED [employer] DTL Comment: Auto-diff results not valid. Se e manual differential. Specimen Anatomical Collection Method Collection Time Receive d Time (Source) Location / / Volume Laterality Blood (Blood, 07/03/2020 7:46 AM 07/03/20 20 8:16 Venous) USED [employer] AM USED [employer] Janusz Ardon LAB BLOOD ADD-ON Performing Organization Address City/State/ZIP Code Phon e Number [facility] - [address] [place] [address] [address] [facility] [place] [address] [facility] 200 [facility] documented in this encounter Visit Diagnoses Diagnosis Myelofibrosis (HCC) documented in this encounter
--- OUTSIDE RECORDS SUMMARY | 2022-05-02 12:10 | XMS_ITS | Encounter Summary ---
:1970 Author Organization [facility] Address [address] [place] [address] Care Team Providers Name Role Phone Unavailable Primary Care Provider Unavailable Encounter Details Date Type Department Care Team Description 07/04/2020 Clinical Communication Division of Hematology Janusz Govea, in [facility] MurphyB[facility] 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 - 07/04/2020 2:56 PM COMPLIANCE CONSULTANT Patient is scheduled for transfusion at 3:15 pm today, can we let Dr. Govea know she did go? Thanks. LIANCE CONSULTANT documented in 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
--- OUTSIDE RECORDS SUMMARY | 2022-05-02 12:10 | XMS_ITS | Encounter Summary ---
:1970 Author Organization [facility] Address [address] [place] [address] Care Team Providers Name Role Phone Unavailable Primary Care Provider Unavailable Encounter Details Date Type Department Care Team Description 07/10/2020 Orders Only Division of Mary Ann Shaver Myelofibro sis (HCC) Hematology in [place], R.N. 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
--- OUTSIDE RECORDS SUMMARY | 2022-05-02 12:10 | XMS_ITS | Encounter Summary ---
:1970 Author Organization [facility] Address [address] [place] [address] Care Team Providers Name Role Phone Unavailable Primary Care Provider Unavailable Reason for Referral Specialty Diagnoses / Procedures Referred By Contact Refer red To Contact Janusz Govea M.B .B.S. [address] [phone] Referral ID Status Reason Start Date Expiration Date Visits Requ ested Visits Authorized Scheduling Instructions Has standing orders, please call patient with appt time. H PUNCHER Encounter Details Date Type Department Care Team Description 07/03/2020 Clinical Communication Division of Hematology Janusz Govea, in [facility] milton ArringtonB.S. 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
--- OUTSIDE RECORDS SUMMARY | 2022-05-02 12:10 | XMS_ITS | Encounter Summary ---
:1970 Author Organization [facility] Address [address] [place] [address] Care Team Providers Name Role Phone Unavailable Primary Care Provider Unavailable Encounter Details Date Type Department Care Team Description 07/17/2020 Hospital Encounter Department of Gangat, Myelofib rosis (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 CBC WITH DIFFERENTIAL, B Routine 07/17/2020 9:41 Myelofibrosis (HCC) Results for this AM SENIOR OPERATIONS ANALYST procedure are i n the results section. TYPE AND SCREEN Routine 07/17/2020 9:41 Myelofibrosis (HCC) Re sults for this AM SENIOR OPERATIONS ANALYST procedure are i n the results section. URIC ACID, S/P Routine 07/17/2020 9:41 Myelofibrosis (HCC) Res ults for this AM SENIOR OPERATIONS ANALYST procedure are i n the results section. BUN (BLOOD UREA Routine 07/17/2020 9:41 Myelofibrosis (HCC) Re sults for this NITROGEN), S/P AM SENIOR OPERATIONS ANALYST procedure are in the results section. ALANINE AMINOTRANSFERASE Routine 07/17/2020 9:41 Myelofibrosis (HCC) Results for this (ALT), S/P AM SENIOR OPERATIONS ANALYST procedure are i n the results section. ASPARTATE Routine 07/17/2020 9:41 Myelofibrosis (HCC) Resul ts for this AMINOTRANSFERASE (AST), AM SENIOR OPERATIONS ANALYST proc edure are in S/P the results section. SODIUM, S/P Routine 07/17/2020 9:41 Myelofibrosis (HCC) Resul ts for this AM SENIOR OPERATIONS ANALYST procedure are i n the results section. PROTEIN, TOTAL, S/P Routine 07/17/2020 9:41 Myelofibrosis (HCC ) Results for this AM SENIOR OPERATIONS ANALYST procedure are i n the results section. POTASSIUM, S/P Routine 07/17/2020 9:41 Myelofibrosis (HCC) Res ults for this AM SENIOR OPERATIONS ANALYST procedure are i n the results section. ALKALINE PHOSPHATASE, Routine 07/17/2020 9:41 Myelofibrosis (H CC) Results for this S/P AM SENIOR OPERATIONS ANALYST procedure are i n the results section. MAGNESIUM, S Routine 07/17/2020 9:41 Myelofibrosis (HCC) Resul ts for this AM SENIOR OPERATIONS ANALYST procedure are i n the results section. GLUCOSE, RANDOM, S/P Routine 07/17/2020 9:41 Myelofibrosis (HC C) Results for this AM SENIOR OPERATIONS ANALYST procedure are i n the results section. CREATININE WITH EGFR, Routine 07/17/2020 9:41 Myelofibrosis (H CC) Results for this S/P AM SENIOR OPERATIONS ANALYST procedure are i n the results section. CHLORIDE, S/P Routine 07/17/2020 9:41 Myelofibrosis (HCC) Resu lts for this AM SENIOR OPERATIONS ANALYST procedure are i n the results section. CALCIUM, TOT, S/P Routine 07/17/2020 9:41 Myelofibrosis (HCC) Results for this AM SENIOR OPERATIONS ANALYST procedure are i n the results section. BILIRUBIN, TOT, S/P Routine 07/17/2020 9:41 Myelofibrosis (HCC ) Results for this AM SENIOR OPERATIONS ANALYST procedure are i n the results section. ALBUMIN, S/P Routine 07/17/2020 9:41 Myelofibrosis (HCC) Resul ts for this AM SENIOR OPERATIONS ANALYST procedure are i n the results section. documented in this encounter Results (ABNORMAL) Morphology Evaluation (Special Smear) (07/17/2020 9:41 AM SENIOR OPERATIONS ANALYST) [facility] Method Time Signature Neutrophilic Segs 78 (H) 50 - 75 % 07/17/2020 DHPM and Bands 11:40 AM SENIOR OPERATIONS ANALYST Lymphocytes 9 (L) 18 - 42 % 07/17/2020 DHPM 11:40 AM SENIOR OPERATIONS ANALYST Monocytes 5 2 - 11 % 07/17/2020 DHPM 11:40 AM SENIOR OPERATIONS ANALYST Metamyelocytes 3 (H) <1 % 07/17/2020 DHPM 11:40 AM SENIOR OPERATIONS ANALYST Myelocytes 5 (H) <0.5 % 07/17/2020 DHPM 11:40 AM SENIOR OPERATIONS ANALYST Nucleated RBC 3 /100 WBC 07/17/2020 DHPM 11:40 AM SENIOR OPERATIONS ANALYST Manual Absolute 2.03 1.56 - 07/17/2020 DHPM Neutrophil Count 6.45 11:40 AM SENIOR OPERATIONS ANALYST x10(9)/L Comment: ----ADDITIONAL INFORMATION---- The manual absolute neutrophil count is derived from a manual differential count and therefore is not exactly comparable to the automated absolute halie trophil count. Specimen Anatomical Collection Method Collection Time Receive d Time (Source) Location / / Volume Laterality Blood 07/17/2020 9:41 AM SENIOR OPERATIONS ANALYST 10:06 AM SENIOR OPERATIONS ANALYST Janusz AlexandraSZahraa LAB BLOOD ADD-ON Performing Organization Address City/[facility] Phon e Number [facility] - [address] [place], [place] [address] [place] [address] Laboratories[address] Type and Screen (with reflex Antibody ID) (07/17/2020 9:41 AM SENIOR OPERATIONS ANALYST) Patholo gist Method Time Signature ABORh A Pos Not 07/17/2020 ETRM applicable 12:30 PM SENIOR OPERATIONS ANALYST Antibody Negative Negative 07/17/2020 ETRM Screen 12:38 PM SENIOR OPERATIONS ANALYST Type & Screen 07/20/2020 07/17/2020 ETRM Expiration 23:59 12:30 PM SENIOR OPERATIONS ANALYST Testing [place] DEFAULT 07/17/2020 ETRM Location 10:00 AM SENIOR OPERATIONS ANALYST Specimen Anatomical Collection Method Collection Time Receive d Time (Source) Location / / Volume Laterality Blood (Blood, 07/17/2020 9:41 AM 07/17/19 Venous) SENIOR OPERATIONS ANALYST 10:00 AM SENIOR OPERATIONS ANALYST Janusz AlexandraSZahraa LAB BLOOD BANK TEST ORDERABL ES Performing Organization Address [facility] Phon e Number [facility] - [address] [place], [place] [address] [facility] [place] [address] [facility]ly [facility]-[address] Protein, Total (07/17/2020 9:41 AM SENIOR OPERATIONS ANALYST) P athologist Signature Protein, Total, 6.4 6.3 - 7.9 07/17/2020 DTL S g/dL 11:15 AM SENIOR OPERATIONS ANALYST Specimen Anatomical Collection Method Collection Time Receive d Time (Source) Location / / Volume Laterality Blood (Blood, 07/17/2020 9:41 AM 07/17/19 Venous) SENIOR OPERATIONS ANALYST 10:05 AM SENIOR OPERATIONS ANALYST Janusz AlexandraS. LAB BLOOD ADD-ON Performing Organization Address City/[facility]/ZIP [facility] Phon e Number [facility] - [address] Albumin (07/17/2020 9:41 AM SENIOR OPERATIONS ANALYST) P athologist Signature Albumin, S 4.5 3.5 - 5.0 07/17/2020 DTL g/dL 11:15 AM SENIOR OPERATIONS ANALYST Specimen Anatomical Collection Method Collection Time Receive d Time (Source) Location / / Volume Laterality Blood (Blood, 07/17/2020 9:41 AM 07/17/19 Venous) SENIOR OPERATIONS ANALYST 10:05 AM SENIOR OPERATIONS ANALYST Janusz AlexandraS. LAB BLOOD ADD-ON Performing Organization Address City/[facility]/ZIP Code Phon e Number [facility] - [address] Glucose, Random (07/17/2020 9:41 AM SENIOR OPERATIONS ANALYST) athologist Signature Glucose, S 137 70 - 140 07/17/2020 DTL mg/dL 11:15 AM SENIOR OPERATIONS ANALYST Specimen Anatomical Collection Method Collection Time Receive d Time (Source) Location / / Volume Laterality Blood (Blood, 07/17/2020 9:41 AM 07/17/19 Venous) SENIOR OPERATIONS ANALYST 10:05 AM SENIOR OPERATIONS ANALYST Janusz AlexandraS. LAB BLOOD TROPONIN Performing Organization Address City/[facility]/ZIP Code Phon e Number [facility] - [phone] [place] [address] (ABNORMAL) Uric Acid (07/17/2020 9:41 AM SENIOR OPERATIONS ANALYST) P athologist Signature Uric Acid, S 6.6 (H) 2.7 - 6.1 07/17/2020 DTL mg/dL 11:15 AM SENIOR OPERATIONS ANALYST Specimen Anatomical Collection Method Collection Time Receive d Time (Source) Location / / Volume Laterality Blood (Blood, 07/17/2020 9:41 AM 07/17/19 Venous) SENIOR OPERATIONS ANALYST 10:05 AM SENIOR OPERATIONS ANALYST Janusz ArringtonB.S. LAB BLOOD ADD-ON Performing Organization Address City/[facility] Code Phon e Number [facility] - 200 [place], [place] [address] [place] [address] Laboratories-[address] (ABNORMAL) Creatinine with Estimated GFR (07/17/2020 9:41 AM SENIOR OPERATIONS ANALYST) Analysis Performed At Patho logist Time Signature Creatinine 1.10 (H) 0.59 - 07/17/2020 DTL 1.04 mg/dL 11:15 AM SENIOR OPERATIONS ANALYST eGFR-Non 58 (L) >=60 07/17/2020 DTL Black/ mL/min/BSA 11:15 AM SENIOR OPERATIONS ANALYST Ukrainian Comment: ----ADDITIONAL INFORMATION---- Estimated GFR calculated using the 2009 CKD_EPI creatinine equation. eGFR-Black/ 67 >=60 mL/min/BSA 2020 11:15 AM SENIOR OPERATIONS ANALYST DTL Comment: ----ADDITIONAL INFORMATION---- Estimated GFR calculated using the 2009 CKD_EPI creatinine equation. Specimen Anatomical Collection Method Collection Time Receive d Time (Source) Location / / Volume Laterality Blood (Blood, 07/17/2020 9:41 AM 07/17/19 Venous) SENIOR OPERATIONS ANALYST 10:05 AM SENIOR OPERATIONS ANALYST Janusz ArringtonB.S. LAB BLOOD ADD-ON Performing Organization Address City/State/ZIP Code Phon e Number [facility] - 200 [place], [place] [address] [place] [address] Laboratories[address] (ABNORMAL) BUN (Blood Urea Nitrogen) (07/17/2020 9:41 AM SENIOR OPERATIONS ANALYST) P athologist Signature BUN (Blood Urea 25 (H) 6 - 21 07/17/2020 DTL Nitrogen), S mg/dL 11:15 AM SENIOR OPERATIONS ANALYST Specimen Anatomical Collection Method Collection Time Receive d Time (Source) Location / / Volume Laterality Blood (Blood, 07/17/2020 9:41 AM 07/17/19 Venous) SENIOR OPERATIONS ANALYST 10:05 AM SENIOR OPERATIONS ANALYST Janusz ArringtonB.S. LAB BLOOD ADD-ON Performing Organization Address City/[facility] Phon e Number [facility] - [address] [place], [place] [address] [place] [address] [address] [facility] Bilirubin, Total (07/17/2020 9:41 AM SENIOR OPERATIONS ANALYST) athologist Signature Bilirubin, 0.8 <=1.2 mg/dL 07/17/2020 DTL Total, S 11:15 AM SENIOR OPERATIONS ANALYST Specimen Anatomical Collection Method Collection Time Receive d Time (Source) Location / / Volume Laterality Blood (Blood, 07/17/2020 9:41 AM 07/17/19 Venous) SENIOR OPERATIONS ANALYST 10:05 AM SENIOR OPERATIONS ANALYST Janusz AlexandraSZahraa LAB BLOOD ADD-ON Performing Organization Address City/[facility] Phon e Number [facility] - [address] [place], [place] [address] [place] [phone] [place] [address] [address] [facility] Calcium, Total (07/17/2020 9:41 AM SENIOR OPERATIONS ANALYST) athologist Signature Calcium, Total, 8.7 8.6 - 10.0 07/17/2020 DTL S mg/dL 11:15 AM SENIOR OPERATIONS ANALYST Specimen Anatomical Collection Method Collection Time Receive d Time (Source) Location / / Volume Laterality Blood (Blood, 07/17/2020 9:41 AM 07/17/19 Venous) SENIOR OPERATIONS ANALYST 10:05 AM SENIOR OPERATIONS ANALYST Janusz AlexandraS. LAB BLOOD ADD-ON Performing Organization Address City/[facility] Phon e Number [facility] - [address] [place], [place] [address] [place], [place] [phone] [place] [address] [address] [facility] Chloride (07/17/2020 9:41 AM SENIOR OPERATIONS ANALYST) athologist Signature Chloride, S 104 98 - 107 07/17/2020 DTL mmol/L 11:15 AM SENIOR OPERATIONS ANALYST Specimen Anatomical Collection Method Collection Time Receive d Time (Source) Location / / Volume Laterality Blood (Blood, 07/17/2020 9:41 AM 07/17/19 Venous) SENIOR OPERATIONS ANALYST 10:05 AM SENIOR OPERATIONS ANALYST Naseema Gangat M.B.B.S. LAB BLOOD ADD-ON Performing Organization Address City/[facility]/ZIP Code Phon e Number [facility] - 200 [place], [place] [address] [place] [address] 200 [place] Magnesium (07/17/2020 9:41 AM SENIOR OPERATIONS ANALYST) P athologist Signature Magnesium, S 2.3 1.7 - 2.3 07/17/2020 DTL mg/dL 11:15 AM SENIOR OPERATIONS ANALYST Specimen Anatomical Collection Method Collection Time Receive d Time (Source) Location / / Volume Laterality Blood (Blood, 07/17/2020 9:41 AM 07/17/19 Venous) SENIOR OPERATIONS ANALYST 10:05 AM SENIOR OPERATIONS ANALYST Naseema Gangat M.B.B.S. LAB BLOOD ADD-ON Performing Organization Address City/[facility] Phon e Number [facility] - [phone] [place] [address] [address] [facility] Potassium (07/17/2020 9:41 AM SENIOR OPERATIONS ANALYST) P athologist Signature Potassium, S 4.5 3.6 - 5.2 07/17/2020 DTL mmol/L 11:15 AM SENIOR OPERATIONS ANALYST Specimen Anatomical Collection Method Collection Time Receive d Time (Source) Location / / Volume Laterality Blood (Blood, 07/17/2020 9:41 AM 07/17/19 Venous) SENIOR OPERATIONS ANALYST 10:05 AM SENIOR OPERATIONS ANALYST Naseema Gangat M.B.B.S. LAB BLOOD ADD-ON Performing Organization Address City/State/ZIP [facility] Phon e Number [facility] - [address] Sodium (07/17/2020 9:41 AM SENIOR OPERATIONS ANALYST) P athologist Signature Sodium, S 142 135 - 145 07/17/2020 DTL mmol/L 11:15 AM SENIOR OPERATIONS ANALYST Specimen Anatomical Collection Method Collection Time Receive d Time (Source) Location / / Volume Laterality Blood (Blood, 07/17/2020 9:41 AM 07/17/19 Venous) SENIOR OPERATIONS ANALYST 10:05 AM SENIOR OPERATIONS ANALYST Janusz Dillon.B.B.S. LAB BLOOD ADD-ON Performing Organization Address City/[facility] Code Phon e Number [facility] - [address] [place], [place] [address] [facility] [place], [place] [phone] [place] [address] Alkaline Phosphatase (07/17/2020 9:41 AM SENIOR OPERATIONS ANALYST) P athologist Signature Alkaline 43 35 - 104 07/17/2020 DTL Phosphatase, S U/L 11:15 AM SENIOR OPERATIONS ANALYST Specimen Anatomical Collection Method Collection Time Receive d Time (Source) Location / / Volume Laterality Blood (Blood, 07/17/2020 9:41 AM 07/17/19 Venous) SENIOR OPERATIONS ANALYST 10:05 AM SENIOR OPERATIONS ANALYST Janusz Dillon.B.B.S. LAB BLOOD ADD-ON Performing Organization Address City/[facility] Phon e Number [facility] - [address] [place], [place] [address] [facility] [place] [address] [facility] [address] AST (Aspartate Aminotransferase) (07/17/2020 9:41 AM SENIOR OPERATIONS ANALYST) [facility]ist Method Time Signature Aspartate 20 8 - 43 07/17/2020 DTL Aminotransferase U/L 11:15 AM SENIOR OPERATIONS ANALYST (AST), S Specimen Anatomical Collection Method Collection Time Receive d Time (Source) Location / / Volume Laterality Blood (Blood, 07/17/2020 9:41 AM 07/17/19 Venous) SENIOR OPERATIONS ANALYST 10:05 AM SENIOR OPERATIONS ANALYST Janusz Govea M.B.B.S. LAB BLOOD ADD-ON Performing Organization Address City/State/ZIP [facility] Phon e Number [facility] - [address] [place], [place] [address] [place] [address] [address] [facility] ALT (Alanine Aminotransferase) (07/17/2020 9:41 AM SENIOR OPERATIONS ANALYST) Patholo gist Method Time Signature Alanine 8 7 - 45 07/17/2020 DTL Aminotransferase U/L 11:15 AM SENIOR OPERATIONS ANALYST (ALT), S Specimen Anatomical Collection Method Collection Time Receive d Time (Source) Location / / Volume Laterality Blood (Blood, 07/17/2020 9:41 AM 07/17/19 Venous) SENIOR OPERATIONS ANALYST 10:05 AM SENIOR OPERATIONS ANALYST Janusz AlexandraSZahraa LAB BLOOD ADD-ON Performing Organization Address City/State/ZIP Code Phon e Number [facility] - 200 [place], [place] [address] [facility] [place] [address] [facility] [address] [place] (ABNORMAL) CBC with Differential, Blood (07/17/2020 9:41 AM SENIOR OPERATIONS ANALYST) P athologist Signature Hemoglobin 5.1 (CL) 11.6 - 15.0 07/17/2020 DTL g/dL 10:58 AM SENIOR OPERATIONS ANALYST Comment: Rechecked Hematocrit 16.8 (L) 35.5 - 44.9 % 07/17/2020 10:58 AM SENIOR OPERATIONS ANALYST D TL Erythrocytes 1.92 (L) 3.92 - 5.13 x10(12)/L 07/17/2020 10:5 8 AM SENIOR OPERATIONS ANALYST DTL MCV 87.5 78.2 - 97.9 fL 07/17/2020 10:58 AM SENIOR OPERATIONS ANALYST D TL RBC Distrib Width 26.6 (H) 12.2 - 16.1 % 07/17/2020 10:58 A M SENIOR OPERATIONS ANALYST DTL Platelet Count 77 (L) 157 - 371 x10(9)/L 07/17/2020 10:58 AM SENIOR OPERATIONS ANALYST DTL Leukocytes 2.6 (L) 3.4 - 9.6 x10(9)/L 07/17/2020 11:39 AM SENIOR OPERATIONS ANALYST DTL Comment: Results confirmed by smear. Neutrophils SeeComment 1.56 - 6.45 x10(9)/L 07/17/2020 11:39 AM SENIOR OPERATIONS ANALYST DTL Comment: Auto-diff results not valid. Se e manual differential. Specimen Anatomical Collection Method Collection Time Receive d Time (Source) Location / / Volume Laterality Blood (Blood, 07/17/2020 9:41 AM 07/17/19 Venous) SENIOR OPERATIONS ANALYST 10:06 AM SENIOR OPERATIONS ANALYST Janusz AlexandraSZahraa LAB BLOOD ADD-ON Performing Organization Address City/State/ZIP Code Phon e Number [facility] - 200 [place], [place] [address] [facility] [place] [address] [facility] [address] [facility] documented in this encounter Visit Diagnoses Diagnosis Myelofibrosis (HCC) documented in this encounter
--- OUTSIDE RECORDS SUMMARY | 2022-05-02 12:10 | XMS_ITS | Encounter Summary ---
:1970 Author Organization [facility] Address [address] [place] [address] Care Team Providers Name Role Phone Unavailable Primary Care Provider Unavailable Encounter Details Date Type Department Care Team Description 06/27/2020 Orders Only Division of [facility], Myelofibrosis ( HCC) Hematology in [place] [facility] (Primary Dx) [address] [place] [phone] Social History Tobacco Use Types Packs/Day Years Used Date Smoking Tobacco: Former Smokeless Tobacco: Never Sex Assigned at Date Recorded Female 07/24/2021 11:03 AM CHEMISTS documented as of 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
--- OUTSIDE RECORDS SUMMARY | 2022-05-02 12:10 | XMS_ITS | Encounter Summary ---
:1970 Author Organization [facility] Address [address] [place] [address] Care Team Providers Name Role Phone Unavailable Primary Care Provider Unavailable Encounter Details Date Type Department Care Team Description 07/10/2020 Lab Department of Infusion Sasha Govea M.B.BZahraaS. [address] [place] [phone] Myelofibrosis (HCC) Therapy in [facility] Ladonna Jasmine, R.NZahraa [address] [place] [phone] (Primary Dx) [place] [address] [place] [phone] Social History Tobacco Use Types Packs/Day Years Used Date Smoking Tobacco: Former Smokeless Tobacco: Never Sex Assigned at Date Recorded Female 07/24/2021 11:03 AM OFFICE TECHNICIAN documented as of this encounter Plan of Treatment Pending Results Name Type Priority Associated Diagnoses Date/Ti me Prepare Red Blood Blood Bank Routine Myelofibrosis (HCC) 6:47 AM OFFICE TECHNICIAN Cells, 1 Units documented as of this encounter Procedures Procedure Name Priority Date/Time Associated Diagnosis Comme nts PREPARE RED BLOOD CELLS Routine 07/10/2020 6:47 AM OFFICE TECHNICIAN Myelofi brosis (HCC) documented in this encounter Visit Diagnoses Diagnosis Myelofibrosis (HCC) - Primary documented in this encounter
--- OUTSIDE RECORDS SUMMARY | 2022-05-02 12:10 | XMS_ITS | Encounter Summary ---
:1970 Author Organization [facility] Address [address] [place] [address] Care Team Providers Name Role Phone Unavailable Primary Care Provider Unavailable Reason for Visit Reason Comments Outpatient Infusion Encounter Details Date Type Department Care Team Description 07/06/2020 Infusion Department of Infusion Janusz Govea M yelofibrosis (HCC) Therapy in [facility]. 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 documented as of this encounter Last Filed Vital Signs Vital Sign Reading Time Taken Comments Blood Pressure 139/76 07/06/2020 5:02 PM MACHINE TECH Pulse 85 07/06/2020 5:02 PM MACHINE TECH Temperature 36.5 ??C (97.7 ??F) 07/06/2020 5:02 PM MACHINE TECH Respiratory Rate 20 07/06/2020 5:02 PM MACHINE TECH Oxygen Saturation - - Inhaled Oxygen Concentration - - Weight - - Height - - Body Mass Index - - documented in this encounter Plan of Treatment Not on filedocumented as of this encounter Procedures Procedure Name Priority Date/Time Associated Diagnosis Comme nts TRANSFUSE RED BLOOD Routine 07/06/2020 2:38 PM MACHINE TECH Myelofibros is (HCC) CELLS documented in this encounter Results Transfuse Red Blood Cells : (07/06/2020 5:06 PM MACHINE TECH) Janusz AlexandraSZahraa BLOOD TRANSFUSION ORDERABLES Transfuse Red Blood Cells : , 1 Units (07/06/2020 5:06 PM MACHINE TECH) Janusz AlexandraSZahraa BLOOD TRANSFUSION ORDERABLES documented in this encounter Visit Diagnoses Diagnosis Myelofibrosis (HCC) - Primary documented in this encounter Administered Medications Inactive Administered Medications - up to 3 most recent administrations Medication Order MAR Action Action Date Dose Rate Site sodium chloride 0.9 % injection 3 mL Given 07/06/2020 5:01 PM MACHINE TECH 3 mL 3 mL, intra-catheter, As needed, line care, Starting on Aruna 07/06/20 at 1411, Prior to and following infusion and between multiple consecutive infusions. Given 07/06/2020 2:35 PM MACHINE TECH 3 mL documented in this encounter
--- OUTSIDE RECORDS SUMMARY | 2022-05-02 12:10 | XMS_ITS | Encounter Summary ---
:1970 Author Organization [facility] Address [address] [place] [address] Care Team Providers Name Role Phone Unavailable Primary Care Provider Unavailable Encounter Details Date Type Department Care Team Description 07/10/2020 Hospital Encounter Department of Gangat, Myelofib rosis ([facility]) Laboratory Medicine [facility], and Pathology, [facility], in [address] [place] [phone] [place], [place] [phone] (Work) [phone] Social History Tobacco Use Types Packs/Day Years Used Date Smoking Tobacco: Former Smokeless Tobacco: Never Sex Assigned at Date Recorded Female 07/24/2021 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 CBC WITH DIFFERENTIAL, B Routine 07/10/2020 6:47 Myelofibrosis (HCC) Results for this AM TECHNICAL SUPPORT ASSISTANT procedure are i n the results section. TYPE AND SCREEN Routine 07/10/2020 6:47 Myelofibrosis (HCC) Re sults for this AM TECHNICAL SUPPORT ASSISTANT procedure are i n the results section. URIC ACID, S/P Routine 07/10/2020 6:47 Myelofibrosis (HCC) Res ults for this AM TECHNICAL SUPPORT ASSISTANT procedure are i n the results section. BUN (BLOOD UREA Routine 07/10/2020 6:47 Myelofibrosis (HCC) Re sults for this NITROGEN), S/P AM TECHNICAL SUPPORT ASSISTANT procedure are in the results section. ALANINE AMINOTRANSFERASE Routine 07/10/2020 6:47 Myelofibrosis (HCC) Results for this (ALT), S/P AM TECHNICAL SUPPORT ASSISTANT procedure are i n the results section. ASPARTATE Routine 07/10/2020 6:47 Myelofibrosis (HCC) Resul ts for this AMINOTRANSFERASE (AST), AM TECHNICAL SUPPORT ASSISTANT proc edure are in S/P the results section. SODIUM, S/P Routine 07/10/2020 6:47 Myelofibrosis (HCC) Resul ts for this AM TECHNICAL SUPPORT ASSISTANT procedure are i n the results section. PROTEIN, TOTAL, S/P Routine 07/10/2020 6:47 Myelofibrosis (HCC ) Results for this AM TECHNICAL SUPPORT ASSISTANT procedure are i n the results section. POTASSIUM, S/P Routine 07/10/2020 6:47 Myelofibrosis (HCC) Res ults for this AM TECHNICAL SUPPORT ASSISTANT procedure are i n the results section. ALKALINE PHOSPHATASE, Routine 07/10/2020 6:47 Myelofibrosis (H CC) Results for this S/P AM TECHNICAL SUPPORT ASSISTANT procedure are i n the results section. MAGNESIUM, S Routine 07/10/2020 6:47 Myelofibrosis (HCC) Resul ts for this AM TECHNICAL SUPPORT ASSISTANT procedure are i n the results section. GLUCOSE, RANDOM, S/P Routine 07/10/2020 6:47 Myelofibrosis (HC C) Results for this AM TECHNICAL SUPPORT ASSISTANT procedure are i n the results section. CREATININE WITH EGFR, Routine 07/10/2020 6:47 Myelofibrosis (H CC) Results for this S/P AM TECHNICAL SUPPORT ASSISTANT procedure are i n the results section. CHLORIDE, S/P Routine 07/10/2020 6:47 Myelofibrosis (HCC) Resu lts for this AM TECHNICAL SUPPORT ASSISTANT procedure are i n the results section. CALCIUM, TOT, S/P Routine 07/10/2020 6:47 Myelofibrosis (HCC) Results for this AM TECHNICAL SUPPORT ASSISTANT procedure are i n the results section. BILIRUBIN, TOT, S/P Routine 07/10/2020 6:47 Myelofibrosis (HCC ) Results for this AM TECHNICAL SUPPORT ASSISTANT procedure are i n the results section. ALBUMIN, S/P Routine 07/10/2020 6:47 Myelofibrosis (HCC) Resul ts for this AM TECHNICAL SUPPORT ASSISTANT procedure are i n the results section. documented in this encounter Results (ABNORMAL) Morphology Evaluation (Special Smear) (07/10/2020 6:47 AM TECHNICAL SUPPORT ASSISTANT) [facility] gist Method Time Signature Neutrophilic Segs 86 (H) 50 - 75 % 07/10/2020 DHPM and Bands 8:05 AM TECHNICAL SUPPORT ASSISTANT Lymphocytes 6 (L) 18 - 42 % 07/10/2020 DHPM 8:05 AM TECHNICAL SUPPORT ASSISTANT Monocytes 5 2 - 11 % 07/10/2020 DHPM 8:05 AM TECHNICAL SUPPORT ASSISTANT Basophils 1 0 - 2 % 07/10/2020 DHPM 8:05 AM TECHNICAL SUPPORT ASSISTANT Metamyelocytes 1 (H) <1 % 07/10/2020 DHPM 8:05 AM TECHNICAL SUPPORT ASSISTANT Myelocytes 1 (H) <0.5 % 07/10/2020 DHPM 8:05 AM TECHNICAL SUPPORT ASSISTANT Nucleated RBC 1 /100 WBC 07/10/2020 DHPM 8:05 AM TECHNICAL SUPPORT ASSISTANT Manual Absolute 3.10 1.56 - 07/10/2020 DHPM Neutrophil Count 6.45 8:05 AM TECHNICAL SUPPORT ASSISTANT x10(9)/L Comment: ----ADDITIONAL INFORMATION---- The manual absolute neutrophil count is derived from a manual differential count and therefore is not exactly comparable to the automated absolute halie trophil count. Specimen Anatomical Collection Method Collection Time Receive d Time (Source) Location / / Volume Laterality Blood 07/10/2020 6:47 AM 0 7:12 TECHNICAL SUPPORT ASSISTANT AM TECHNICAL SUPPORT ASSISTANT Janusz ArringtonB.S. LAB BLOOD ADD-ON Performing Organization Address [facility] Phon e Number [facility] - 200 [place], [place] [address] [place] [address] Type and Screen (with reflex Antibody ID) (07/10/2020 6:47 AM TECHNICAL SUPPORT ASSISTANT) Patholo gist Method Time Signature ABORh A Pos Not 07/10/2020 ETRM applicable 9:56 AM TECHNICAL SUPPORT ASSISTANT Antibody Negative Negative 07/10/2020 ETRM Screen 9:13 AM TECHNICAL SUPPORT ASSISTANT Type & Screen 07/13/2020 07/10/2020 ETRM Expiration 23:59 9:13 AM TECHNICAL SUPPORT ASSISTANT Testing [place] DEFAULT 07/10/2020 ETRM Location 8:25 AM TECHNICAL SUPPORT ASSISTANT Specimen Anatomical Collection Method Collection Time Receive d Time (Source) Location / / Volume Laterality Blood (Blood, 07/10/2020 6:47 AM 07/10/20 20 8:25 Venous) TECHNICAL SUPPORT ASSISTANT AM TECHNICAL SUPPORT ASSISTANT Janusz ArringtonB.S. LAB BLOOD BANK TEST ORDERABL ES Performing Organization Address [facility] Phon e Number [facility] - 200 [place], [place] [address] [facility] [place] [address] (ABNORMAL) Protein, Total (07/10/2020 6:47 AM TECHNICAL SUPPORT ASSISTANT) P athologist Signature Protein, 6.2 (L) 6.3 - 7.9 07/10/2020 DTL Total, S g/dL 7:51 AM TECHNICAL SUPPORT ASSISTANT Specimen Anatomical Collection Method Collection Time Receive d Time (Source) Location / / Volume Laterality Blood (Blood, 07/10/2020 6:47 AM 07/10/20 20 7:10 Venous) TECHNICAL SUPPORT ASSISTANT AM TECHNICAL SUPPORT ASSISTANT Janusz ArringtonB.S. LAB BLOOD ADD-ON Performing Organization Address City/[facility]/ZIP [facility] Phon e Number [facility] - [address] Albumin (07/10/2020 6:47 AM TECHNICAL SUPPORT ASSISTANT) athologist Signature Albumin, S 4.4 3.5 - 5.0 07/10/2020 DTL g/dL 7:51 AM TECHNICAL SUPPORT ASSISTANT Specimen Anatomical Collection Method Collection Time Receive d Time (Source) Location / / Volume Laterality Blood (Blood, 07/10/2020 6:47 AM 07/10/20 7:10 Venous) TECHNICAL SUPPORT ASSISTANT AM TECHNICAL SUPPORT ASSISTANT Janusz Dillon.Cain.B.S. LAB BLOOD ADD-ON Performing Organization Address City/[facility] Phon e Number [facility] - [address] Glucose, Random (07/10/2020 6:47 AM TECHNICAL SUPPORT ASSISTANT) athologist Signature Glucose, S 135 70 - 140 07/10/2020 DTL mg/dL 7:51 AM TECHNICAL SUPPORT ASSISTANT Specimen Anatomical Collection Method Collection Time Receive d Time (Source) Location / / Volume Laterality Blood (Blood, 07/10/2020 6:47 AM 07/10/20 20 7:10 Venous) TECHNICAL SUPPORT ASSISTANT AM TECHNICAL SUPPORT ASSISTANT Janusz Dillon.Cain.B.S. LAB BLOOD TROPONIN Performing Organization Address City/[facility]/ZIP [facility] Phon e Number [facility] - [address] Uric Acid (07/10/2020 6:47 AM TECHNICAL SUPPORT ASSISTANT) athologist Signature Uric Acid, S 5.0 2.7 - 6.1 07/10/2020 DTL mg/dL 7:51 AM TECHNICAL SUPPORT ASSISTANT Specimen Anatomical Collection Method Collection Time Receive d Time (Source) Location / / Volume Laterality Blood (Blood, 07/10/2020 6:47 AM 07/10/20 7:10 Venous) TECHNICAL SUPPORT ASSISTANT AM TECHNICAL SUPPORT ASSISTANT Nasbaltazarma Xuan Dillon.B.B.S. LAB BLOOD ADD-ON Performing Organization Address City/State/ZIP Code Phon e Number [facility] - [address] (ABNORMAL) Creatinine with Estimated GFR (07/10/2020 6:47 AM TECHNICAL SUPPORT ASSISTANT) Analysis Performed At Patho logist Time Signature Creatinine 1.08 (H) 0.59 - 07/10/2020 DTL 1.04 mg/dL 7:51 AM TECHNICAL SUPPORT ASSISTANT eGFR-Non 59 (L) >=60 07/10/2020 DTL Black/ mL/min/BSA 7:51 AM TECHNICAL SUPPORT ASSISTANT Bulgarian Comment: ----ADDITIONAL INFORMATION---- Estimated GFR calculated using the 2009 CKD_EPI creatinine equation. eGFR-Black/ 68 >=60 mL/min/BSA 2019 7:51 AM TECHNICAL SUPPORT ASSISTANT DTL Comment: ----ADDITIONAL INFORMATION---- Estimated GFR calculated using the 2009 CKD_EPI creatinine equation. Specimen Anatomical Collection Method Collection Time Receive d Time (Source) Location / / Volume Laterality Blood (Blood, 07/10/2020 6:47 AM 07/10/20 20 7:10 Venous) TECHNICAL SUPPORT ASSISTANT AM TECHNICAL SUPPORT ASSISTANT Janusz AlexandraSZahraa LAB BLOOD ADD-ON Performing Organization Address City/[facility]/ZIP Code Phon e Number [facility] - [address] [address] [address] (ABNORMAL) BUN (Blood Urea Nitrogen) (07/10/2020 6:47 AM TECHNICAL SUPPORT ASSISTANT) P athologist Signature BUN (Blood Urea 24 (H) 6 - 21 07/10/2020 DTL Nitrogen), S mg/dL 7:51 AM TECHNICAL SUPPORT ASSISTANT Specimen Anatomical Collection Method Collection Time Receive d Time (Source) Location / / Volume Laterality Blood (Blood, 07/10/2020 6:47 AM 07/10/20 20 7:10 Venous) TECHNICAL SUPPORT ASSISTANT AM TECHNICAL SUPPORT ASSISTANT Janusz ArringtonB.S. LAB BLOOD ADD-ON Performing Organization Address City/[facility]/ZIP Code Phon e Number [facility] - [address] [place] [address] [facility] [address] Bilirubin, Total (07/10/2020 6:47 AM TECHNICAL SUPPORT ASSISTANT) P athologist Signature Bilirubin, 0.8 <=1.2 mg/dL 07/10/2020 DTL Total, S 7:51 AM TECHNICAL SUPPORT ASSISTANT Specimen Anatomical Collection Method Collection Time Receive d Time (Source) Location / / Volume Laterality Blood (Blood, 07/10/2020 6:47 AM 07/10/20 20 7:10 Venous) TECHNICAL SUPPORT ASSISTANT AM TECHNICAL SUPPORT ASSISTANT Naseema Gangat M.B.B.S. LAB BLOOD ADD-ON Performing Organization Address City/[facility]/ZIP Code Phon e Number [facility] 200 [place], [place] [address] [place] [phone] [facility] [address] [facility] Calcium, Total (07/10/2020 6:47 AM TECHNICAL SUPPORT ASSISTANT) athologist Signature Calcium, Total, 8.7 8.6 - 10.0 07/10/2020 DTL S mg/dL 7:51 AM TECHNICAL SUPPORT ASSISTANT Specimen Anatomical Collection Method Collection Time Receive d Time (Source) Location / / Volume Laterality Blood (Blood, 07/10/2020 6:47 AM 07/10/20 20 7:10 Venous) TECHNICAL SUPPORT ASSISTANT AM TECHNICAL SUPPORT ASSISTANT Naseema Gangat M.B.B.S. LAB BLOOD ADD-ON Performing Organization Address City/[facility]/ZIP Code Phon e Number [facility] [address] [place], [place] [address] [place] [address] [place] [address] [facility] Chloride (07/10/2020 6:47 AM TECHNICAL SUPPORT ASSISTANT) P athologist Signature Chloride, S 105 98 - 107 07/10/2020 DTL mmol/L 7:51 AM TECHNICAL SUPPORT ASSISTANT Specimen Anatomical Collection Method Collection Time Receive d Time (Source) Location / / Volume Laterality Blood (Blood, 07/10/2020 6:47 AM 07/10/20 20 7:10 Venous) TECHNICAL SUPPORT ASSISTANT AM TECHNICAL SUPPORT ASSISTANT Naseema Gangat M.B.B.S. LAB BLOOD ADD-ON Performing Organization Address City/State/ZIP Code Phon e Number [facility] - [address] Magnesium (07/10/2020 6:47 AM TECHNICAL SUPPORT ASSISTANT) athologist Signature Magnesium, S 2.2 1.7 - 2.3 07/10/2020 DTL mg/dL 7:51 AM TECHNICAL SUPPORT ASSISTANT Specimen Anatomical Collection Method Collection Time Receive d Time (Source) Location / / Volume Laterality Blood (Blood, 07/10/2020 6:47 AM 07/10/20 20 7:10 Venous) TECHNICAL SUPPORT ASSISTANT AM TECHNICAL SUPPORT ASSISTANT Naseema Gangat M.B.B.S. LAB BLOOD ADD-ON Performing Organization Address City/State/ZIP Code Phon e Number [facility] [id number] [place] [address] Potassium (07/10/2020 6:47 AM TECHNICAL SUPPORT ASSISTANT) athologist Signature Potassium, S 4.3 3.6 - 5.2 07/10/2020 DTL mmol/L 7:51 AM TECHNICAL SUPPORT ASSISTANT Specimen Anatomical Collection Method Collection Time Receive d Time (Source) Location / / Volume Laterality Blood (Blood, 07/10/2020 6:47 AM 07/10/20 20 7:10 Venous) TECHNICAL SUPPORT ASSISTANT AM TECHNICAL SUPPORT ASSISTANT Naseema Gangat M.B.B.S. LAB BLOOD ADD-ON Performing Organization Address City/State/ZIP Code Phon e Number [facility] [address] Sodium (07/10/2020 6:47 AM TECHNICAL SUPPORT ASSISTANT) athologist Signature Sodium, S 141 135 - 145 07/10/2020 7:51 DTL mmol/L AM TECHNICAL SUPPORT ASSISTANT Specimen Anatomical Collection Method Collection Time Receive d Time (Source) Location / / Volume Laterality Blood (Blood, 07/10/2020 6:47 AM 07/10/20 20 7:10 Venous) TECHNICAL SUPPORT ASSISTANT AM TECHNICAL SUPPORT ASSISTANT Naseema Gangat M.B.B.S. LAB BLOOD ADD-ON Performing Organization Address City/State/ZIP Code Phon e Number [facility] 200 [place], [place] [address] [place] [address] [facility] 200 [facility] Alkaline Phosphatase (07/10/2020 6:47 AM TECHNICAL SUPPORT ASSISTANT) P athologist Signature Alkaline 49 35 - 104 07/10/2020 DTL Phosphatase, S U/L 7:51 AM TECHNICAL SUPPORT ASSISTANT Specimen Anatomical Collection Method Collection Time Receive d Time (Source) Location / / Volume Laterality Blood (Blood, 07/10/2020 6:47 AM 07/10/20 20 7:10 Venous) TECHNICAL SUPPORT ASSISTANT AM TECHNICAL SUPPORT ASSISTANT Janusz Dillon.B.B.S. LAB BLOOD ADD-ON Performing Organization Address City/State/ZIP Code Phon e Number [facility] - 200 [place], [place] [address] [place] [address] AST (Aspartate Aminotransferase) (07/10/2020 6:47 AM TECHNICAL SUPPORT ASSISTANT) Patholo gist Method Time Signature Aspartate 30 8 - 43 07/10/2020 DTL Aminotransferase U/L 7:51 AM TECHNICAL SUPPORT ASSISTANT (AST), S Specimen Anatomical Collection Method Collection Time Receive d Time (Source) Location / / Volume Laterality Blood (Blood, 07/10/2020 6:47 AM 07/10/20 7:10 Venous) TECHNICAL SUPPORT ASSISTANT AM TECHNICAL SUPPORT ASSISTANT Janusz Dillon.B.B.S. LAB BLOOD ADD-ON Performing Organization Address City/State/ZIP Code Phon e Number [facility] - 200 [place], [place] [address] [place] [address] ALT (Alanine Aminotransferase) (07/10/2020 6:47 AM TECHNICAL SUPPORT ASSISTANT) Patholo gist Method Time Signature Alanine 12 7 - 45 07/10/2020 DTL Aminotransferase U/L 7:51 AM TECHNICAL SUPPORT ASSISTANT (ALT), S Specimen Anatomical Collection Method Collection Time Receive d Time (Source) Location / / Volume Laterality Blood (Blood, 07/10/2020 6:47 AM 07/10/20 20 7:10 Venous) TECHNICAL SUPPORT ASSISTANT AM TECHNICAL SUPPORT ASSISTANT Nasjonathan Govea M.B.B.S. LAB BLOOD ADD-ON Performing Organization Address City/State/ZIP Code Phon e Number [facility] - [address] [place] [address] Laboratories-[address] (ABNORMAL) CBC with Differential, Blood (07/10/2020 6:47 AM TECHNICAL SUPPORT ASSISTANT) [facility] gist Method Time Signature Hemoglobin 6.8 (L) 11.6 - 07/10/2020 DTL 15.0 g/dL 7:22 AM TECHNICAL SUPPORT ASSISTANT Hematocrit 22.1 (L) 35.5 - 07/10/2020 DTL 44.9 % 7:22 AM TECHNICAL SUPPORT ASSISTANT Erythrocytes 2.51 (L) 3.92 - 07/10/2020 DTL 5.13 7:22 AM TECHNICAL SUPPORT ASSISTANT x10(12)/L MCV 88.0 78.2 - 07/10/2020 DTL 97.9 fL 7:22 AM TECHNICAL SUPPORT ASSISTANT RBC Distrib 25.8 (H) 12.2 - 07/10/2020 DTL Width 16.1 % 7:22 AM TECHNICAL SUPPORT ASSISTANT Platelet Count 119 (L) 157 - 371 07/10/2020 DTL x10(9)/L 7:22 AM TECHNICAL SUPPORT ASSISTANT Leukocytes 3.6 3.4 - 9.6 07/10/2020 DTL x10(9)/L 8:05 AM TECHNICAL SUPPORT ASSISTANT Neutrophils SeeComment 1.56 - 07/10/2020 DTL 6.45 8:05 AM TECHNICAL SUPPORT ASSISTANT x10(9)/L Comment: Auto-diff results not valid. Se e manual differential. Specimen Anatomical Collection Method Collection Time Receive d Time (Source) Location / / Volume Laterality Blood (Blood, 07/10/2020 6:47 AM 07/10/20 20 7:12 Venous) TECHNICAL SUPPORT ASSISTANT AM TECHNICAL SUPPORT ASSISTANT Janusz Ardon LAB BLOOD ADD-ON Performing Organization Address City/[facility] Phon e Number [facility] - [address] [facility]-[address] documented in this encounter Visit Diagnoses Diagnosis Myelofibrosis (HCC) documented in this encounter
--- OUTSIDE RECORDS SUMMARY | 2022-05-02 12:10 | XMS_ITS | Encounter Summary ---
:1970 Author Organization [facility] Address [address] [place] [address] Care Team Providers Name Role Phone Unavailable Primary Care Provider Unavailable Reason for Referral Outpatient (Routine) - Closed Specialty Diagnoses / Procedures Referred By Contact Refer red To Contact Diagnoses Myelofibrosis (HCC) Janusz Govea M.B.B.S. [facility] Procedures ECG 12 Lead [address] [place] [phone] Referral ID Status Reason Start Date Expiration Date Visits Requ ested Visits Authorized [id number] Closed 07/03/2020 07/03/2021 1 1 ER Encounter Details Date Type Department Care Team Description 07/03/2020 Orders Only Division of [facility], Myelofibrosis ( HCC) Hematology in Liz Archer (Primary Dx) [place], [place] 200 [address] [facility] [address] [place] [phone] Social History Tobacco Use Types Packs/Day Years Used Date Smoking Tobacco: Former Smokeless Tobacco: Never Sex Assigned at Date Recorded Female 07/24/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 encounter Plan of Treatment Not on filedocumented as of this encounter Results ECG 12 Lead (07/03/2020 9:41 AM LIFTER) P athologist Signature Ventricular Rate 77 BPM MUSE ECG/Min [place] Interval 144 ms MUSE QRSD Interval 84 ms MUSE QT Interval 398 ms MUSE QTC Interval 450 ms MUSE P [place] 57 degrees MUSE R [place] 20 degrees MUSE T Wave [place] 53 degrees MUSE Specimen Anatomical Collection Method Collection Time Receive d Time (Source) Location / / Volume Laterality 07/03/2020 9:41 AM 0 LIFTER 10:23 AM LIFTER Impressions MUSE - 07/03/2020 10:23 AM LIFTER Normal sinus rhythm T wave abnormality, consider anterior is chemia When compared with ECG of 06-JUN-2020 08 :51, T waves have changed Reviewed by REG Winston Narrative This result has an attachment that is no t available. Procedure Note Filipe Snyder M.D. - 07/03/2020Formatti ng of this note might be different from the original. IMPRESSION: Normal sinus rhythm T wave abnormality, consider anterior is chemia When compared with ECG of 06-JUN-2020 08 :51, T waves have changed Reviewed by REG Winston Janusz AlexandraSZahraa ECG ORDERABLES Performing Organization Address City/State/ZIP Code Phon e Number MUSE MUSE NA documented in this encounter Visit Diagnoses Diagnosis Myelofibrosis (HCC) - Primary documented in this encounter
--- OUTSIDE RECORDS SUMMARY | 2022-05-02 12:10 | XMS_ITS | Encounter Summary ---
:1970 Author Organization [facility] Address [address] [place] [address] Care Team Providers Name Role Phone Unavailable Primary Care Provider Unavailable Reason for Visit Episode Based Medications (Routine) - Closed Specialty Diagnoses / Procedures Referred By Contact Refer red To Contact Medical Oncology / Diagnoses Myelofibrosis (HCC) Janusz Govea [facility] Procedures ONCBCN INFUSION APPOINTMENT REQUEST 09 ONC THER INF M.B.B.S. 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 Doses 120 mg or greater: IVPB at 4 mg/minute. After treatment [employer] IRB [id number] New Bag 07/03/2020 12:06 PM CS T 1,130 mg 500 mL/hr 1,130 mg in NaCl 0.9% (non-PVC) 1,113 mL IVPB 1,130 mg (rounded from 1,132.12 mg = 12.4 mg/kg ? 91.3 kg Order-specific weight), intravenous, at 500 mL/hr, Once, On Fri07/03/20 at 1100, For 1 dose, CSTDs cannot be used. Flush with 30ml at IV site following completion of . Monitor BP (pre dose & post dose), HR, temp, resp (pre-dose and as clinically indicated). Administer using 1.2 micron filter tubing via a peripheral or central line. sodium chloride (flush) 0.9 % injection 30 mL Given 07/03/2020 2:19 PM PARACHUTE/COMBATANT DIVER OFFICER 30 mL 30 mL, intravenous, Once, On Fri07/03/20 at 1300, For 1 dose, Post chemotherapy flush documented in this encounter
--- OUTSIDE RECORDS SUMMARY | 2022-05-02 12:10 | XMS_ITS | Encounter Summary ---
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
--- OUTSIDE RECORDS SUMMARY | 2022-05-02 12:10 | XMS_ITS | Encounter Summary ---
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
--- OUTSIDE RECORDS SUMMARY | 2022-05-02 12:10 | XMS_ITS | Encounter Summary ---
:1970 Author Organization [facility] Address [address] [place] [address] Care Team Providers Name Role Phone Unavailable Primary Care Provider Unavailable Encounter Details Date Type Department Care Team Description 07/03/2020 Hospital Encounter Department of Gangat, Myelofib rosis ([facility]) Laboratory Medicine [facility], and Pathology, [facility], in [address] [place] [phone] [place], [place] [phone] (Work) [phone] Social History Tobacco Use Types Packs/Day Years Used Date Smoking Tobacco: Former Smokeless Tobacco: Never Sex Assigned at Date Recorded Female 07/24/2021 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 documented in this encounter Results Test, Qualitative, Urine (07/03/2020 8:43 AM MANAGER CLIENT SERVICE) P athologist Signature Negative 07/03/2020 TUNDE Test, U 8:56 AM MANAGER CLIENT SERVICE Specimen Anatomical Collection Method Collection Time Receive d Time (Source) Location / / Volume Laterality Urine (Urine, 07/03/2020 8:43 AM 07/03/20 8:43 Clean Catch) MANAGER CLIENT SERVICE AM MANAGER CLIENT SERVICE Janusz Ardon LAB URINE ORDERABLES Performing Organization Address City/State/ZIP Code Phon e Number [facility] - [address] [place], [place] [address] [facility] [place] [address] [facility] [address] documented in this encounter Visit Diagnoses Diagnosis Myelofibrosis (HCC) documented in this encounter
--- OUTSIDE RECORDS SUMMARY | 2022-05-02 12:10 | XMS_ITS | Encounter Summary ---
:1970 Author Organization [facility] Address [address] [place] [address] Care Team Providers Name Role Phone Unavailable Primary Care Provider Unavailable Encounter Details Date Type Department Care Team Description 07/13/2020 Clinical Communication Division of Hematology Janusz Govea, in [facility] [address] [facility] [address] [place] [phone] Social History Tobacco Use Types Packs/Day Years Used Date Smoking Tobacco: Former Smokeless Tobacco: Never Sex Assigned at Date Recorded Female 07/24/2021 11:03 AM OFFICE SERVICES CLERK documented as of this encounter Miscellaneous Notes Telephone Encounter - Mary Ann Shaver R.N. - 07/13/2020 2:28 PM OFFICE SERVICES CLERK I spoke to patient and spouse who are at home. They are planning on coming here Friday for patients chemo in the morning. They will have lab draws in the morning, and I told them patient will need a RBC transfusion in the afternoon. Patient was scheduled to get one today but stated they couldn't get in until tomorrow, and wanted to wait to come in Friday. They agreed if patient becomes symptomatic over the weekend including any shortness of breath, they will need to seek care emergently. I called Sarah at [facility] and she said they are setting patient up for transfusion that day at 4:30pm. CE SERVICES CLERK documented in 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
--- OUTSIDE RECORDS SUMMARY | 2022-05-02 12:10 | XMS_ITS | Encounter Summary ---
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
--- OUTSIDE RECORDS SUMMARY | 2022-05-02 12:10 | XMS_ITS | Encounter Summary ---
:1970 Author Organization [facility] Address [address] [place] [address] Care Team Providers Name Role Phone Unavailable Primary Care Provider Unavailable Reason for Visit Outpatient (Routine) - Closed Specialty Diagnoses / Procedures Referred By Contact Refer red To Contact Hematology Oncology Diagnoses Myelofibrosis (HCC) [facility] [address] [place] [phone] Referral ID Status Reason Start Date Expiration Date Visits Requ ested Visits Authorized [id number] Closed 06/16/2020 06/16/2021 1 1 Encounter Details Date Type Department Care Team Description 07/03/2020 Office Visit Division of Hematology [facility], Myelo fibrosis (HCC) in [facility] (Primary Dx) [place] [facility] 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 HISTORY OF PRESENT ILLNESS Mrs. 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 Main issues have been marked splenomegaly requiring narcotics for pain control. She has night sweats, which are slightly improved since initiation of study drug. She continues to have transfusion-dependent anemia. She received red blood cell transfusions on 06/13, 06/20. Previously, she was receiving transfusions every 2 weeks. Prior treatments have included Jakafi. She was intolerant and developed transfusion dependence. Subsequently, she was on the alisertib clinical trial in April 2016, completed 4 cycles of therapy without much benefit and had toxicities in the form of fatigue and alopecia. Cycle 1, day 1 of the 9-ING study was on 06/06. Today is cycle 2, day 1 visit. Her main issues are joint pains. She has pain in her knees, hips, andankles. She has developed lower extremity edema related to the fluid that she receives with infusiontwice weekly. Her stool count is 1-2 per day. She feels that her nausea and vomiting are improved. Abdominal discomfort is unchanged. She is stillrequiring narcotics for painful splenomegaly. She did experience visual toxicity with seeing tracks as well as darkness, and this happens with each infusion and lasts for a while even after the infusion is over. ALLERGIES/CONTRAINDICATIONS No known allergies noted. CURRENT MEDICATIONS No changes. OBJECTIVE PHYSICAL EXAMINATION Vital Signs: Temperature 36.3. Pulse 78, regular. Blood pressure 131/78. Height 169 cm. Weight 95 kg. Respiratory rate is 10 per minute. General: Comfortable, in no acute distress. ECOG is 1-2. Lungs: Clear to auscultation. Heart: Regular rate and rhythm with a systolic murmur. Abdomen: Spleen is unchanged, 22 cm below the left costal margin crossing the midline. Extremities: 1 to 2+ pitting edema bilaterally. DIAGNOSTICS Hemoglobin 6.9 g/dL. White count is 3.3 with no circulating blasts. Platelets are 136. Uric acid is down to 4.8. 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 She did experience visual toxicity with every infusion. Main issue is fluid buildup related to the infusions. I do plan to administer Lasix 20 mg I/V once weekly. She will also receive blood transfusion on 07/06 since hemoglobin is below 7 g/dL. I also discussed with her that we will be increasing her dose from the 9.3 mg/kg dose to 12.4 mg/kg.This has been discussed with the study physicians. #4 Hyperuricemia resolved after initiation of allopurinol 300 mg daily. #5 Followup In [address] CT Job ID: [id number] T WRAPPER documented in this encounter Miscellaneous Notes Addendum Note - Zita Corona - 07/03/2020 9:30 AM PLANT WRAPPER Addended by: ZITA CORONA on: 07/17/2020 10:49 AM Modules accepted: Orders T WRAPPER documented in 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
--- OUTSIDE RECORDS SUMMARY | 2022-05-02 12:10 | XMS_ITS | Encounter Summary ---
:1970 Author Organization [facility] Address [address] [place] [address] Care Team Providers Name Role Phone Unavailable Primary Care Provider Unavailable Reason for Visit Episode Based Medications (Routine) - Closed Specialty Diagnoses / Procedures Referred By Contact Refer red To Contact Medical Oncology / Diagnoses Myelofibrosis (HCC) Janusz Govea Rst Inf Onc Rog[facility] Oncology Procedures ONCBCN INFUSION APPOINTMENT REQUEST 09 ONC THER INF M.B.B.S. [address] [facility] [address] [place] [phone] Referral ID Status Reason Start Date Expiration Date Visits Requ ested Visits Authorized [id number] Closed 06/06/2020 06/20/2021 99 30 Encounter Details Date Type Department Care Team Description 07/06/2020 Infusion Department of Oncology Janusz Govea M yelofibrosis (HCC) in [facility] potato chip cooker machine M.B.B.S. 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 documented as of this encounter Last Filed Vital Signs Vital Sign Reading Time Taken Comments Blood Pressure 148/72 07/06/2020 9:45 AM TOBACCO DRYING MACHINE OPERATOR Pulse 105 07/06/2020 9:45 AM TOBACCO DRYING MACHINE OPERATOR Temperature 36 ??C (96.8 ??F) 07/06/2020 9:45 AM TOBACCO DRYING MACHINE OPERATOR Respiratory Rate - - Oxygen Saturation - - Inhaled Oxygen Concentration - - Weight 94.6 kg (208 lb 8.9 oz) 07/06/2020 9:45 AM TOBACCO DRYING MACHINE OPERATOR Height - - Body Mass Index 33.12 07/03/2020 9:03 AM TOBACCO DRYING MACHINE OPERATOR documented in 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 Administered Medications Inactive Administered Medications - up to 3 most recent administrations Medication Order MAR Action Action Date Dose Rate Site Research IRB [id number] New Bag 07/06/2020 10:37 AM TOBACCO DRYING MACHINE OPERATOR 1,130 mg 500 mL/hr 1,130 mg in NaCl 0.9% (non-PVC) 1,113 mL IVPB 1,130 mg (rounded from 1,132.12 mg = 12.4 mg/kg ? 91.3 kg Order-specific weight), intravenous, at 500 mL/hr, Once, On [facility] 07/06/20 at 1000, For 1 dose, CSTDs cannot be used. Flush with 30ml at IV site following completion of . Monitor BP (pre dose & post dose), HR, temp, resp (pre-dose and as clinically indicated). Administer using 1.2 micron filter tubing via a peripheral or central line. sodium chloride (flush) 0.9 % injection 30 mL Given 07/06/2020 1:45 PM TOBACCO DRYING MACHINE OPERATOR 30 mL 30 mL, intravenous, Once, On [facility] 07/06/20 at 1000, For 1 dose, Post chemotherapy flush documented in this encounter
--- OUTSIDE RECORDS SUMMARY | 2022-05-02 12:10 | XMS_ITS | Encounter Summary ---
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
--- OUTSIDE RECORDS SUMMARY | 2022-05-02 12:10 | XMS_ITS | Encounter Summary ---
:1970 Author Organization [facility] Address [address] [place] [address] Care Team Providers Name Role Phone Unavailable Primary Care Provider Unavailable Reason for Visit Episode Based Medications (Routine) - Closed Specialty Diagnoses / Procedures Referred By Contact Refer red To Contact Medical Oncology / Diagnoses Myelofibrosis (HCC) Janusz Govea Rst Inf Onc Rog[facility] Oncology Procedures ONCBCN INFUSION APPOINTMENT REQUEST 09 ONC THER INF M.B.B.S. 200 [address] [facility] [address] [place] [phone] Referral ID Status Reason Start Date Expiration Date Visits Requ ested Visits Authorized [id number] Closed 06/06/2020 06/20/2021 99 30 Encounter Details Date Type Department Care Team Description 07/10/2020 Infusion Department of Oncology Janusz Govea M yelofibrosis (HCC) in [facility] peeled potato inspector M.B.B.S. 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 documented as of this encounter Last Filed Vital Signs Vital Sign Reading Time Taken Comments Blood Pressure 143/83 07/10/2020 12:43 PM COLLAR TACKER Pulse 97 07/10/2020 12:43 PM COLLAR TACKER Temperature 36.3 ??C (97.3 ??F) 07/10/2020 12:43 PM COLLAR TACKER Respiratory Rate 16 07/10/2020 12:43 PM COLLAR TACKER Oxygen Saturation - - Inhaled Oxygen Concentration - - Weight 92.8 kg (204 lb 9.4 oz) 07/10/2020 8:38 AM COLLAR TACKER Height - - Body Mass Index 32.49 07/03/2020 9:03 AM COLLAR TACKER documented in 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 Administered Medications Inactive Administered Medications - up to 3 most recent administrations Medication Order MAR Action Action Date Dose Rate Site furosemide injection 20 mg (LASIX) Given 07/10/2020 12:37 PM COLLAR TACKER 20 mg 20 mg, intravenous, Once, On Fri07/10/20 at 0900, For 1 dose, Adults: Doses less than 120 mg: IV push over 20 mg/minute. Doses 120 mg or greater: IVPB at 4 mg/minute. After treatment Research IRB [id number] New Bag 07/10/2020 9:54 AM COLLAR TACKER 1,130 mg 500 mL/hr 1,130 mg in NaCl 0.9% (non-PVC) 1,113 mL IVPB 1,130 mg (rounded from 1,132.12 mg = 12.4 mg/kg ? 91.3 kg Order-specific weight), intravenous, at 500 mL/hr, Once, On Fri07/10/20 at 0845, For 1 dose, CSTDs cannot be used. Flush with 30ml at IV site following completion of . Monitor BP (pre dose & post dose), HR, temp, resp (pre-dose and as clinically indicated). Administer using 1.2 micron filter tubing via a peripheral or central line. sodium chloride (flush) 0.9 % injection 30 mL Given 07/10/2020 12:36 PM COLLAR TACKER 30 mL 30 mL, intravenous, Once, On Fri07/10/20 at 0845, For 1 dose, Post chemotherapy flush documented in this encounter
--- OUTSIDE RECORDS SUMMARY | 2022-05-02 12:10 | XMS_ITS | Encounter Summary ---
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
--- OUTSIDE RECORDS SUMMARY | 2022-05-02 12:10 | XMS_ITS | Encounter Summary ---
:1970 Author Organization [facility] Address [address] [place] [address] Care Team Providers Name Role Phone Unavailable Primary Care Provider Unavailable Reason for Visit Episode Based Medications (Routine) - Closed Specialty Diagnoses / Procedures Referred By Contact Refer red To Contact Medical Oncology / Diagnoses Myelofibrosis (HCC) Janusz Govea Rst Inf Onc Rog[facility] Oncology Procedures ONCBCN INFUSION APPOINTMENT REQUEST 09 ONC THER INF M.B.B.S. 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 documented as of this encounter Last Filed Vital Signs Vital Sign Reading Time Taken Comments Blood Pressure 117/65 06/30/2020 12:23 PM RFID STRATEGIST Pulse 78 06/30/2020 12:23 PM RFID STRATEGIST Temperature 36.6 ??C (97.9 ??F) 06/30/2020 12:23 PM RFID STRATEGIST Respiratory Rate 18 06/30/2020 12:23 PM RFID STRATEGIST Oxygen Saturation 98% 06/30/2020 12:23 PM RFID STRATEGIST Inhaled Oxygen Concentration - - Weight 95.5 kg (210 lb 10.4 oz) 06/30/2020 9:12 AM RFID STRATEGIST Height - - Body Mass Index 32.49 06/06/2020 8:02 AM RFID STRATEGIST documented in 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 Administered Medications Inactive Administered Medications - up to 3 most recent administrations Medication Order MAR Action Action Date Dose Rate Site Research IRB [id number] New Bag 06/30/2020 9:57 AM RFID STRATEGIST 850 mg 5 00 mL/hr 9-ING-41 850 mg in NaCl 0.9% (non-PVC) 1,085 mL IVPB 850 mg (rounded from 849.09 mg = 9.3 mg/kg ? 91.3 kg Order-specific weight), intravenous, at 500 mL/hr, Once, On Fri06/30/20 at 0930, For 1 dose, CSTDs cannot be used. Flush with 30ml at IV site following completion of 9-ING-41. Monitor BP (pre dose & post dose), HR, temp, resp (pre-dose and as clinically indicated). Administer using 1.2 micron filter tubing via a peripheral or central line. sodium chloride (flush) 0.9 % injection 30 mL Given 06/30/2020 12:22 PM RFID STRATEGIST 30 mL 30 mL, intravenous, Once, On Fri06/30/20 at 1130, For 1 dose, Post chemotherapy flush documented in this encounter
--- OUTSIDE RECORDS SUMMARY | 2022-05-02 12:10 | XMS_ITS | Encounter Summary ---
:1970 Author Organization [facility] Address [address] [place] [address] Care Team Providers Name Role Phone Unavailable Primary Care Provider Unavailable Reason for Visit Episode Based Medications (Routine) - Closed Specialty Diagnoses / Procedures Referred By Contact Refer red To Contact Medical Oncology / Diagnoses Myelofibrosis (HCC) aJnusz Govea Rst Inf Onc [facility] Oncology Procedures ONCBCN INFUSION APPOINTMENT REQUEST 09 ONC THER INF M.B.B[facility]S. [address] [place] [address] [place] [phone] Referral ID Status Reason Start Date Expiration Date Visits Requ ested Visits Authorized [id number] Closed 06/06/2020 06/20/2021 99 30 Encounter Details Date Type Department Care Team Description 07/17/2020 Infusion Department of Oncology Janusz Govea M yelofibrosis (HCC) in [facility] M.B.B.S. 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 documented as of this encounter Last Filed Vital Signs Vital Sign Reading Time Taken Comments Blood Pressure 120/52 07/17/2020 11:40 AM CUSTOMS COMPLIANCE ANALYST Pulse 91 07/17/2020 11:40 AM CUSTOMS COMPLIANCE ANALYST Temperature 36.1 ??C (97 ??F) 07/17/2020 11:40 AM CUSTOMS COMPLIANCE ANALYST Respiratory Rate - - Oxygen Saturation - - Inhaled Oxygen Concentration - - Weight 90.6 kg (199 lb 11.8 oz) 07/17/2020 11:40 AM CUSTOMS COMPLIANCE ANALYST Height - - Body Mass Index 31.72 07/03/2020 9:03 AM CUSTOMS COMPLIANCE ANALYST documented in 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 Administered Medications Inactive Administered Medications - up to 3 most recent administrations Medication Order MAR Action Action Date Dose Rate Site furosemide injection 20 mg (LASIX) Given 07/17/2020 3:50 PM CUSTOMS COMPLIANCE ANALYST 20 mg 20 mg, intravenous, Once, On Fri07/17/20 at 1200, For 1 dose, Adults: Doses less than 120 mg: IV push over 20 mg/minute. Doses 120 mg or greater: IVPB at 4 mg/minute. After treatment Research IRB [id number] New Bag 07/17/2020 1:26 PM CUSTOMS COMPLIANCE ANALYST 1,130 mg 500 mL/hr 1,130 mg in NaCl 0.9% (non-PVC) 1,113 mL IVPB 1,130 mg (rounded from 1,132.12 mg = 12.4 mg/kg ? 91.3 kg Order-specific weight), intravenous, at 500 mL/hr, Once, On Fri07/17/20 at 1200, For 1 dose, CSTDs cannot be used. Flush with 30ml at IV site following completion of . Monitor BP (pre dose & post dose), HR, temp, resp (pre-dose and as clinically indicated). Administer using 1.2 micron filter tubing via a peripheral or central line. sodium chloride (flush) 0.9 % injection 30 mL Given 07/17/2020 3:46 PM CUSTOMS COMPLIANCE ANALYST 30 mL 30 mL, intravenous, Once, On Fri07/17/20 at 1200, For 1 dose, Post chemotherapy flush sodium chloride 0.9 % injection 3 mL Given 07/17/2020 4:10 PM CUSTOMS COMPLIANCE ANALYST 3 mL 3 mL, intra-catheter, As needed, line care, Starting on Fri07/17/20 at 1155, Prior to and following infusion and between multiple consecutive infusions. documented in this encounter
--- OUTSIDE RECORDS SUMMARY | 2022-05-02 12:10 | XMS_ITS | Encounter Summary ---
:1970 Author Organization [facility] Address [address] [place] [id number] Care Team Providers Name Role Phone Unavailable Primary Care Provider Unavailable Reason for Referral Outpatient (Routine) - Closed Specialty Diagnoses / Procedures Referred By Contact Refer red To Contact Diagnoses Myelofibrosis (HCC) Janusz Govea M.B.B.S. [facility] Procedures ECG 12 Lead [address] [place] [phone] Referral ID Status Reason Start Date Expiration Date Visits Requ ested Visits Authorized [id number] Closed 07/11/2020 07/11/2021 1 1 TRICIAN WIRING Encounter Details Date Type Department Care Team Description 07/11/2020 Orders Only Division of Zita Berger Myelofibrosis (HCC) Hematology in [phone] (Primary Dx) [place], [place] (Work) [address] [place] [phone] Social History Tobacco Use Types Packs/Day Years Used Date Smoking Tobacco: Former Smokeless Tobacco: Never Sex Assigned at Date Recorded Female 07/24/2021 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 documented as of this encounter Plan of Treatment Not on filedocumented as of this encounter Results ECG 12 Lead (08/01/2020 10:10 AM ELECTRICIAN WIRING) P athologist Signature Ventricular Rate 74 BPM MUSE ECG/Min [place] Interval 138 ms MUSE QRSD Interval 88 ms MUSE QT Interval 388 ms MUSE QTC Interval 430 ms MUSE P [place] -6 degrees MUSE R [place] 30 degrees MUSE T Wave [place] 12 degrees MUSE Specimen Anatomical Collection Method Collection Time Receive d Time (Source) Location / / Volume Laterality 08/01/2020 10:10 08/01/2020 AM ELECTRICIAN WIRING 10:22 AM ELECTRICIAN WIRING Impressions MUSE - 08/01/2020 10:22 AM ELECTRICIAN WIRING Normal sinus rhythm T wave abnormality, consider anterior is chemia When compared with ECG of 03-JUL-2020 09 :41, No significant change was found Reviewed by REG Delgado Narrative This result has an attachment that is no t available. Procedure Note Carol Chi M.D., Ph.D. - 08/01/2020Fo rmatting of this note might be different from the original. IMPRESSION: Normal sinus rhythm T wave abnormality, consider anterior is chemia When compared with ECG of 03-JUL-2020 09 :41, No significant change was found Reviewed by REG Delgado Janusz Ardon ECG ORDERABLES Performing Organization Address City/State/ZIP Code Phon e Number MUSE MUSE NA documented in this encounter Visit Diagnoses Diagnosis Myelofibrosis (HCC) - Primary documented in this encounter
--- OUTSIDE RECORDS SUMMARY | 2022-05-02 12:11 | XMS_ITS | Encounter Summary ---
:1970 Author Organization [facility] Address [address] [place] [address] Care Team Providers Name Role Phone Unavailable Primary Care Provider Unavailable Encounter Details Date Type Department Care Team Description 06/14/2020 Orders Only Division of Hematology in [place], [place] [facility] 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
--- OUTSIDE RECORDS SUMMARY | 2022-05-02 12:11 | XMS_ITS | Encounter Summary ---
:[address] [facility] Address [address] [place] [address] Care Team Providers Name Role Phone Unavailable Primary Care Provider Unavailable Encounter Details Date Type Department Care Team Description 06/13/2020 Clinical Communication Division of Hematology Reema Goveaid, in [facility] Ronaldo.B[facility] 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 Antibody Screen CANCELED 06/13/2020 12:09 PM COMPUTER TYPESETTER KEYLINER ETRM Comment: Result canceled by the ancillar y. Type & Screen Expiration CANCELED 06/13/2020 12:0 9 PM COMPUTER TYPESETTER KEYLINER ETRM Comment: Result canceled by the ancillar y. Testing Location CANCELED 06/13/2020 12:09 PM COMPUTER TYPESETTER KEYLINER ETRM Comment: Result canceled by the ancillar y. Specimen Anatomical Collection Method Collection Time Receive d Time (Source) Location / / Volume Laterality Blood (Blood, 06/13/2020 8:41 AM 06/13/20 20 Venous) COMPUTER TYPESETTER KEYLINER 12:06 PM COMPUTER TYPESETTER KEYLINER Narrative [facility] - 06/13/2020 12:09 PM COMPUTER TYPESETTER KEYLINER Type and Screen, RBC was cancelled on 06/13/2020 at 12:09; Duplicate test request. Janusz Ardon LAB BLOOD BANK TEST ORDERABL ES Performing Organization Address City/State/ZIP Code Phon e Number [facility] - [facility] [address] [place], [place] [address] [facility] [place] [address] [facility] [address] documented in this encounter Visit Diagnoses Diagnosis Myelofibrosis (HCC) - Primary documented in this encounter
--- OUTSIDE RECORDS SUMMARY | 2022-05-02 12:11 | XMS_ITS | Encounter Summary ---
:1970 Author Organization [facility] Address [address] [place] [address] Care Team Providers Name Role Phone Unavailable Primary Care Provider Unavailable Encounter Details Date Type Department Care Team Description 06/20/2020 Hospital Encounter Department of Gangat, Myelofib rosis ([facility]) Laboratory Medicine [facility], and Pathology, [facility], in [address] [place] [phone] [place], [place] [phone] (Work) [phone] Social History Tobacco Use Types Packs/Day Years Used Date Smoking Tobacco: Former Smokeless Tobacco: Never Sex Assigned at Date Recorded 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 CBC WITH DIFFERENTIAL, B Routine 06/20/2020 8:08 Myelofibrosis (HCC) Results for this AM TECHNICAL PLANNER procedure are i n the results section. URIC ACID, S/P Routine 06/20/2020 8:08 Myelofibrosis (HCC) Res ults for this AM TECHNICAL PLANNER procedure are i n the results section. BUN (BLOOD UREA Routine 06/20/2020 8:08 Myelofibrosis (HCC) Re sults for this NITROGEN), S/P AM TECHNICAL PLANNER procedure are in the results section. ALANINE AMINOTRANSFERASE Routine 06/20/2020 8:08 Myelofibrosis (HCC) Results for this (ALT), S/P AM TECHNICAL PLANNER procedure are i n the results section. ASPARTATE Routine 06/20/2020 8:08 Myelofibrosis (HCC) Resul ts for this AMINOTRANSFERASE (AST), AM TECHNICAL PLANNER proc edure are in S/P the results section. SODIUM, S/P Routine 06/20/2020 8:08 Myelofibrosis (HCC) Resul ts for this AM TECHNICAL PLANNER procedure are i n the results section. PROTEIN, TOTAL, S/P Routine 06/20/2020 8:08 Myelofibrosis (HCC ) Results for this AM TECHNICAL PLANNER procedure are i n the results section. POTASSIUM, S/P Routine 06/20/2020 8:08 Myelofibrosis (HCC) Res ults for this AM TECHNICAL PLANNER procedure are i n the results section. ALKALINE PHOSPHATASE, Routine 06/20/2020 8:08 Myelofibrosis (H CC) Results for this S/P AM TECHNICAL PLANNER procedure are i n the results section. MAGNESIUM, S Routine 06/20/2020 8:08 Myelofibrosis (HCC) Resul ts for this AM TECHNICAL PLANNER procedure are i n the results section. GLUCOSE, RANDOM, S/P Routine 06/20/2020 8:08 Myelofibrosis (HC C) Results for this AM TECHNICAL PLANNER procedure are i n the results section. CREATININE WITH EGFR, Routine 06/20/2020 8:08 Myelofibrosis (H CC) Results for this S/P AM TECHNICAL PLANNER procedure are i n the results section. CHLORIDE, S/P Routine 06/20/2020 8:08 Myelofibrosis (HCC) Resu lts for this AM TECHNICAL PLANNER procedure are i n the results section. CALCIUM, TOT, S/P Routine 06/20/2020 8:08 Myelofibrosis (HCC) Results for this AM TECHNICAL PLANNER procedure are i n the results section. BILIRUBIN, TOT, S/P Routine 06/20/2020 8:08 Myelofibrosis (HCC ) Results for this AM TECHNICAL PLANNER procedure are i n the results section. ALBUMIN, S/P Routine 06/20/2020 8:08 Myelofibrosis (HCC) Resul ts for this AM TECHNICAL PLANNER procedure are i n the results section. documented in this encounter Results (ABNORMAL) Morphology Evaluation (Special Smear) (06/20/2020 8:08 AM TECHNICAL PLANNER) [facility] gist Method Time Signature Neutrophilic Segs 88 (H) 50 - 75 % 06/20/2020 DHPM and Bands 9:43 AM TECHNICAL PLANNER Lymphocytes 6 (L) 18 - 42 % 06/20/2020 DHPM 9:43 AM TECHNICAL PLANNER Monocytes 3 2 - 11 % 06/20/2020 DHPM 9:43 AM TECHNICAL PLANNER Eosinophils 1 1 - 3 % 06/20/2020 DHPM 9:43 AM TECHNICAL PLANNER Metamyelocytes 1 (H) <1 % 06/20/2020 DHPM 9:43 AM TECHNICAL PLANNER Myelocytes 1 (H) <0.5 % 06/20/2020 DHPM 9:43 AM TECHNICAL PLANNER Nucleated RBC 5 /100 WBC 06/20/2020 DHPM 9:43 AM TECHNICAL PLANNER Manual Absolute 2.29 1.56 - 06/20/2020 DHPM Neutrophil Count 6.45 9:43 AM TECHNICAL PLANNER x10(9)/L Comment: ----ADDITIONAL INFORMATION---- The manual absolute neutrophil count is derived from a manual differential count and therefore is not exactly comparable to the automated absolute halie trophil count. Specimen Anatomical Collection Method Collection Time Receive d Time (Source) Location / / Volume Laterality Blood 06/20/2020 8:08 AM 0 8:37 TECHNICAL PLANNER AM TECHNICAL PLANNER Janusz Higgins.B.S. LAB BLOOD ADD-ON Performing Organization Address City/State/ZIP Code Phon e Number [facility] - [address] [place], [place] [address] [place] [address] [facility] [address] (ABNORMAL) Protein, Total (06/20/2020 8:08 AM TECHNICAL PLANNER) P athologist Signature Protein, 6.1 (L) 6.3 - 7.9 06/20/2020 DTL Total, S g/dL 9:56 AM TECHNICAL PLANNER Specimen Anatomical Collection Method Collection Time Receive d Time (Source) Location / / Volume Laterality Blood (Blood, 06/20/2020 8:08 AM 06/20/20 20 8:56 Venous) TECHNICAL PLANNER AM TECHNICAL PLANNER Janusz Higgins.B.S. LAB BLOOD ADD-ON Performing Organization Address City/State/ZIP Code Phon e Number [facility] - [address] [place], [place] [address] [facility] [place] [address] [facility] [address] Albumin (06/20/2020 8:08 AM TECHNICAL PLANNER) athologist Signature Albumin, S 4.2 3.5 - 5.0 06/20/2020 DTL g/dL 9:56 AM TECHNICAL PLANNER Specimen Anatomical Collection Method Collection Time Receive d Time (Source) Location / / Volume Laterality Blood (Blood, 06/20/2020 8:08 AM 06/20/20 20 8:56 Venous) TECHNICAL PLANNER AM TECHNICAL PLANNER Janusz Higgins.B.S. LAB BLOOD ADD-ON Performing Organization Address City/State/ZIP Code Phon e Number [facility] - [address] [place], [place] [address] [place] [address] [facility] [address] Glucose, Random (06/20/2020 8:08 AM TECHNICAL PLANNER) P athologist Signature Glucose, S 140 70 - 140 06/20/2020 DTL mg/dL 9:56 AM TECHNICAL PLANNER Specimen Anatomical Collection Method Collection Time Receive d Time (Source) Location / / Volume Laterality Blood (Blood, 06/20/2020 8:08 AM 06/20/20 8:56 Venous) TECHNICAL PLANNER AM TECHNICAL PLANNER Janusz AlexandraS. LAB BLOOD TROPONIN Performing Organization Address City/[facility] Phon e Number [facility] - 200 [place], [place] [address] [facility] [place] [address] Laboratories[address] Uric Acid (06/20/2020 8:08 AM TECHNICAL PLANNER) P athologist Signature Uric Acid, S 4.2 2.7 - 6.1 06/20/2020 DTL mg/dL 9:56 AM TECHNICAL PLANNER Specimen Anatomical Collection Method Collection Time Receive d Time (Source) Location / / Volume Laterality Blood (Blood, 06/20/2020 8:08 AM 06/20/20 8:56 Venous) TECHNICAL PLANNER AM TECHNICAL PLANNER Janusz AlexandraS. LAB BLOOD ADD-ON Performing Organization Address City/State/[facility] Code Phon e Number [facility] - 200 [place], [place] [address] [place] [address] (ABNORMAL) Creatinine with Estimated GFR (06/20/2020 8:08 AM TECHNICAL PLANNER) Analysis Performed At Patho logist Time Signature Creatinine 1.07 (H) 0.59 - 06/20/2020 DTL 1.04 mg/dL 9:56 AM TECHNICAL PLANNER eGFR-Non 60 >=60 06/20/2020 DTL Black/ mL/min/BSA 9:56 AM TECHNICAL PLANNER [place] Comment: ----ADDITIONAL INFORMATION---- Estimated GFR calculated using the 2009 CKD_EPI creatinine equation. eGFR-Black/ 69 >=60 mL/min/BSA 2019 9:56 AM TECHNICAL PLANNER DTL Comment: ----ADDITIONAL INFORMATION---- Estimated GFR calculated using the 2009 CKD_EPI creatinine equation. Specimen Anatomical Collection Method Collection Time Receive d Time (Source) Location / / Volume Laterality Blood (Blood, 06/20/2020 8:08 AM 06/20/20 8:56 Venous) TECHNICAL PLANNER AM TECHNICAL PLANNER Janusz Govea M.B.B.S. LAB BLOOD ADD-ON Performing Organization Address City/State/ZIP Code Phon e Number [facility] - 200 [place], [place] [address] [place] [address] (ABNORMAL) BUN (Blood Urea Nitrogen) (06/20/2020 8:08 AM TECHNICAL PLANNER) athologist Signature BUN (Blood Urea 25 (H) 6 - 21 06/20/2020 DTL Nitrogen), S mg/dL 9:56 AM TECHNICAL PLANNER Specimen Anatomical Collection Method Collection Time Receive d Time (Source) Location / / Volume Laterality Blood (Blood, 06/20/2020 8:08 AM 06/20/20 8:56 Venous) TECHNICAL PLANNER AM TECHNICAL PLANNER Janusz Govea M.B.B.S. LAB BLOOD ADD-ON Performing Organization Address City/[facility]/ZIP Code Phon e Number [facility] - [address] Bilirubin, Total (06/20/2020 8:08 AM TECHNICAL PLANNER) athologist Signature Bilirubin, 0.5 <=1.2 mg/dL 06/20/2020 DTL Total, S 9:56 AM TECHNICAL PLANNER Specimen Anatomical Collection Method Collection Time Receive d Time (Source) Location / / Volume Laterality Blood (Blood, 06/20/2020 8:08 AM 06/20/20 8:56 Venous) TECHNICAL PLANNER AM TECHNICAL PLANNER Janusz Govea M.B.B.S. LAB BLOOD ADD-ON Performing Organization Address City/State/ZIP Code Phon e Number [facility] - [address] Calcium, Total (06/20/2020 8:08 AM TECHNICAL PLANNER) athologist Signature Calcium, Total, 8.7 8.6 - 10.0 06/20/2020 DTL S mg/dL 9:56 AM TECHNICAL PLANNER Specimen Anatomical Collection Method Collection Time Receive d Time (Source) Location / / Volume Laterality Blood (Blood, 06/20/2020 8:08 AM 06/20/20 8:56 Venous) TECHNICAL PLANNER AM TECHNICAL PLANNER Janusz Govea M.B.B.S. LAB BLOOD ADD-ON Performing Organization Address City/State/ZIP Code Phon e Number [facility] - [address] [place], [place] [address] [place] [address] [facility] [address] Chloride (06/20/2020 8:08 AM TECHNICAL PLANNER) P athologist Signature Chloride, S 107 98 - 107 06/20/2020 DTL mmol/L 9:56 AM TECHNICAL PLANNER Specimen Anatomical Collection Method Collection Time Receive d Time (Source) Location / / Volume Laterality Blood (Blood, 06/20/2020 8:08 AM 06/20/20 8:56 Venous) TECHNICAL PLANNER AM TECHNICAL PLANNER Janusz Govea M.B.B.S. LAB BLOOD ADD-ON Performing Organization Address City/State/ZIP Code Phon e Number [facility] - [address] [place], [place] [address] [place] [address] [facility] [address] Magnesium (06/20/2020 8:08 AM TECHNICAL PLANNER) athologist Signature Magnesium, S 2.0 1.7 - 2.3 06/20/2020 DTL mg/dL 9:56 AM TECHNICAL PLANNER Specimen Anatomical Collection Method Collection Time Receive d Time (Source) Location / / Volume Laterality Blood (Blood, 06/20/2020 8:08 AM 06/20/20 8:56 Venous) TECHNICAL PLANNER AM TECHNICAL PLANNER Janusz Govea M.B.B.S. LAB BLOOD ADD-ON Performing Organization Address City/State/ZIP Code Phon e Number [facility] - [address] [place], [place] [address] [place] [address] [facility] [address] Potassium (06/20/2020 8:08 AM TECHNICAL PLANNER) P athologist Signature Potassium, S 4.5 3.6 - 5.2 06/20/2020 DTL mmol/L 9:56 AM TECHNICAL PLANNER Specimen Anatomical Collection Method Collection Time Receive d Time (Source) Location / / Volume Laterality Blood (Blood, 06/20/2020 8:08 AM 06/20/20 8:56 Venous) TECHNICAL PLANNER AM TECHNICAL PLANNER Janusz Dillon.B.B.S. LAB BLOOD ADD-ON Performing Organization Address City/State/ZIP Code Phon e Number [facility] - [address] [place], [place] [address] [place] [address] [facility] [address] Sodium (06/20/2020 8:08 AM TECHNICAL PLANNER) P athologist Signature Sodium, S 140 135 - 145 06/20/2020 9:56 DTL mmol/L AM TECHNICAL PLANNER Specimen Anatomical Collection Method Collection Time Receive d Time (Source) Location / / Volume Laterality Blood (Blood, 06/20/2020 8:08 AM 06/20/20 8:56 Venous) TECHNICAL PLANNER AM TECHNICAL PLANNER Janusz Govea M.B.B.S. LAB BLOOD ADD-ON Performing Organization Address City/[facility] Code Phon e Number [facility] - [address] [place], [place] [address] [place] [address] [facility] [address] Alkaline Phosphatase (06/20/2020 8:08 AM TECHNICAL PLANNER) P athologist Signature Alkaline 38 35 - 104 06/20/2020 DTL Phosphatase, S U/L 9:56 AM TECHNICAL PLANNER Specimen Anatomical Collection Method Collection Time Receive d Time (Source) Location / / Volume Laterality Blood (Blood, 06/20/2020 8:08 AM 06/20/20 20 8:56 Venous) TECHNICAL PLANNER AM TECHNICAL PLANNER Janusz Dillon.B.B.S. LAB BLOOD ADD-ON Performing Organization Address City/State/ZIP Code Phon e Number [facility] - [address] [place], [place] [address] [place], [place] [id number] [facility] [address] AST (Aspartate Aminotransferase) (06/20/2020 8:08 AM TECHNICAL PLANNER) Patholo gist Method Time Signature Aspartate 25 8 - 43 06/20/2020 DTL Aminotransferase U/L 9:56 AM TECHNICAL PLANNER (AST), S Specimen Anatomical Collection Method Collection Time Receive d Time (Source) Location / / Volume Laterality Blood (Blood, 06/20/2020 8:08 AM 06/20/20 20 8:56 Venous) TECHNICAL PLANNER AM TECHNICAL PLANNER Janusz Ardon LAB BLOOD ADD-ON Performing Organization Address City/[facility] Phon e Number [facility] - 200 [place], [place] [address] [place] [address] ALT (Alanine Aminotransferase) (06/20/2020 8:08 AM TECHNICAL PLANNER) [facility] Method Time Signature Alanine 17 7 - 45 06/20/2020 DTL Aminotransferase U/L 9:56 AM TECHNICAL PLANNER (ALT), S Specimen Anatomical Collection Method Collection Time Receive d Time (Source) Location / / Volume Laterality Blood (Blood, 06/20/2020 8:08 AM 06/20/20 20 8:56 Venous) TECHNICAL PLANNER AM TECHNICAL PLANNER Janusz AlexandraSZahraa LAB BLOOD ADD-ON Performing Organization Address City/[facility] Phon e Number [facility] - 200 [place], [place] [address] [place] [phone] [place] [address] (ABNORMAL) CBC with Differential, Blood (06/20/2020 8:08 AM TECHNICAL PLANNER) [facility] Method Time Signature Hemoglobin 6.5 (L) 11.6 - 06/20/2020 DTL 15.0 g/dL 8:52 AM TECHNICAL PLANNER Hematocrit 21.6 (L) 35.5 - 06/20/2020 DTL 44.9 % 8:52 AM TECHNICAL PLANNER Erythrocytes 2.37 (L) 3.92 - 06/20/2020 DTL 5.13 8:52 AM TECHNICAL PLANNER x10(12)/L MCV 91.1 78.2 - 06/20/2020 DTL 97.9 fL 8:52 AM TECHNICAL PLANNER RBC Distrib Width 26.9 (H) 12.2 - 06/20/2020 DTL 16.1 % 8:52 AM TECHNICAL PLANNER Platelet Count 121 (L) 157 - 371 06/20/2020 DTL x10(9)/L 8:52 AM TECHNICAL PLANNER Leukocytes 2.6 (L) 3.4 - 9.6 06/20/2020 DTL x10(9)/L 9:42 AM TECHNICAL PLANNER Comment: Results confirmed by smear. Neutrophils SeeComment 1.56 - 6.45 x10(9)/L 06/20/2020 9:42 AM TECHNICAL PLANNER DTL Comment: Auto-diff results not valid. Se e manual differential. Specimen Anatomical Collection Method Collection Time Receive d Time (Source) Location / / Volume Laterality Blood (Blood, 06/20/2020 8:08 AM 06/20/20 8:37 Venous) TECHNICAL PLANNER AM TECHNICAL PLANNER Janusz Ardon LAB BLOOD ADD-ON Performing Organization Address City/State/ZIP Code Phon e Number [facility] - [address] [place], [place] [address] [facility] [place] [address] Laboratories-[facility] [address] documented in this encounter Visit Diagnoses Diagnosis Myelofibrosis (HCC) documented in this encounter
--- OUTSIDE RECORDS SUMMARY | 2022-05-02 12:11 | XMS_ITS | Encounter Summary ---
:1970 Author Organization [facility] Address [address] [place] [address] Care Team Providers Name Role Phone Unavailable Primary Care Provider Unavailable Reason for Visit Episode Based Medications (Routine) - Closed Specialty Diagnoses / Procedures Referred By Contact Refer red To Contact Medical Oncology / Diagnoses Myelofibrosis (HCC) Janusz Govea Rst Inf [facility] Oncology Procedures ONCBCN INFUSION APPOINTMENT REQUEST 09 ONC THER INF M.B.B.S. 200 [address] [facility] [address] [place] [phone] Referral ID Status Reason Start Date Expiration Date Visits Requ ested Visits Authorized [id number] Closed 06/06/2020 06/20/2021 99 30 Encounter Details Date Type Department Care Team Description 06/27/2020 Infusion Department of Oncology Janusz Govea M yelofibrosis (HCC) in [facility] travel cota M.B.B.S. 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 encounter Last Filed Vital Signs Vital Sign Reading Time Taken Comments Blood Pressure 129/52 06/27/2020 7:00 AM LOPPER Pulse 75 06/27/2020 7:00 AM LOPPER Temperature 35.9 ??C (96.7 ??F) 06/27/2020 7:00 AM LOPPER Respiratory Rate - - Oxygen Saturation - - Inhaled Oxygen Concentration - - Weight 95.7 kg (210 lb 14.6 oz) 06/27/2020 7:00 AM LOPPER Height - - Body Mass Index 32.53 06/06/2020 8:02 AM LOPPER documented in 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 Administered Medications Inactive Administered Medications - up to 3 most recent administrations Medication Order MAR Action Action Date Dose Rate Site Research IRB [id number] New Bag 06/27/2020 9:40 AM LOPPER 850 mg 5 00 mL/hr 850 mg in NaCl 0.9% (non-PVC) 1,085 mL IVPB 850 mg (rounded from 849.09 mg = 9.3 mg/kg ? 91.3 kg Order-specific weight), intravenous, at 500 mL/hr, Once, On Fri06/27/20 at 0900, For 1 dose, CSTDs cannot be used. Flush with 30ml at IV site following completion of . Monitor BP (pre dose & post dose), HR, temp, resp (pre-dose and as clinically indicated). Administer using 1.2 micron filter tubing via a peripheral or central line. sodium chloride (flush) 0.9 % injection 30 mL Given 06/27/2020 12:22 PM LOPPER 30 mL 30 mL, intravenous, Once, On Fri06/27/20 at 0900, For 1 dose, Post chemotherapy flush documented in this encounter
--- OUTSIDE RECORDS SUMMARY | 2022-05-02 12:11 | XMS_ITS | Encounter Summary ---
:1970 Author Organization [facility] Address [address] [place] [address] Care Team Providers Name Role Phone Unavailable Primary Care Provider Unavailable Reason for Visit Episode Based Medications (Routine) - Closed Specialty Diagnoses / Procedures Referred By Contact Refer red To Contact Medical Oncology / Diagnoses Myelofibrosis (HCC) Janusz Govea Rst Inf On[facility] Procedures ONCBCN INFUSION APPOINTMENT REQUEST 09 ONC THER INF M.B.B.S. [address] 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 documented as of this encounter Last Filed Vital Signs Vital Sign Reading Time Taken Comments Blood Pressure 130/77 06/23/2020 12:50 PM HAND PICKER Pulse 69 06/23/2020 9:12 AM HAND PICKER Temperature 36.5 ??C (97.7 ??F) 06/23/2020 12:50 PM HAND PICKER Respiratory Rate 20 06/23/2020 12:50 PM HAND PICKER Oxygen Saturation 98% 06/23/2020 12:50 PM HAND PICKER Inhaled Oxygen Concentration - - Weight 96 kg (211 lb 10.3 oz) 06/23/2020 9:12 AM HAND PICKER Height - - Body Mass Index 32.64 06/06/2020 8:02 AM HAND PICKER documented in 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 Administered Medications Inactive Administered Medications - up to 3 most recent administrations Medication Order MAR Action Action Date Dose Rate Site Research IRB [id number] New Bag 06/23/2020 9:53 AM HAND PICKER 850 mg 5 00 mL/hr 9-- 850 mg in NaCl 0.9% (non-PVC) 1,085 mL IVPB 850 mg (rounded from 849.09 mg = 9.3 mg/kg ? 91.3 kg Order-specific weight), intravenous, at 500 mL/hr, Once, On Fri06/23/20 at 0945, For 1 dose, CSTDs cannot be used. Flush with 30ml at IV site following completion of --41. Monitor BP (pre dose & post dose), HR, temp, resp (pre-dose and as clinically indicated). Administer using 1.2 micron filter tubing via a peripheral or central line. sodium chloride (flush) 0.9 % injection 30 mL Given 06/23/2020 12:45 PM HAND PICKER 30 mL 30 mL, intravenous, Once, On Fri06/23/20 at 1145, For 1 dose, Post chemotherapy flush documented in this encounter
--- OUTSIDE RECORDS SUMMARY | 2022-05-02 12:11 | XMS_ITS | Encounter Summary ---
:1970 Author Organization [facility] Address [address] [place] [address] Care Team Providers Name Role Phone Unavailable Primary Care Provider Unavailable Encounter Details Date Type Department Care Team Description 06/20/2020 Clinical Communication Division of Hematology Janusz Govea, in [facility] milton ArringtonB.SZahraa [address] [place] [address] [place] [phone] Social History Tobacco Use Types Packs/Day Years Used Date Smoking Tobacco: Former Smokeless Tobacco: Never Sex Assigned at Date Recorded 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 Plan of Treatment Not on filedocumented as of this encounter Results Type and Screen (with reflex Antibody ID) (06/20/2020 8:04 AM ROLLER STRUCTURAL MILL) [facility] Method Time Signature ABORh A Pos Not 06/20/2020 ETRM applicable 11:00 AM [employer] Antibody Negative Negative 06/20/2020 ETRM Screen 11:07 AM [employer] Type & Screen 06/23/2020 06/20/2020 ETRM Expiration 23:59 11:00 AM [employer] Testing [place] DEFAULT 06/20/2020 ETRM Location 10:15 AM ROLLER [employer] M[employer] Specimen Anatomical Collection Method Collection Time Receive d Time (Source) Location / / Volume Laterality Blood (Blood, 06/20/2020 8:04 AM 06/20/20 20 Venous) [employer] 10:15 AM ROLLER STRUCTURAL MILL Janusz ArringtonB.S. LAB BLOOD BANK TEST ORDERABL ES Performing Organization Address City/State/ZIP Code Phon e Number [facility] - [address] [place], [place] [address] [facility] [place] [address] Laboratories-[facility] [address] documented in this encounter Visit Diagnoses Diagnosis Myelofibrosis (HCC) - Primary documented in this encounter
--- OUTSIDE RECORDS SUMMARY | 2022-05-02 12:11 | XMS_ITS | Encounter Summary ---
:1970 Author Organization [facility] Address [address] [address] Care Team Providers Name Role Phone Unavailable Primary Care Provider Unavailable Encounter Details Date Type Department Care Team Description 06/13/2020 Orders Only Division of Hematology Janusz Govea M yelofibrosis (HCC) in [facility].B.B.S. 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
--- OUTSIDE RECORDS SUMMARY | 2022-05-02 12:11 | XMS_ITS | Encounter Summary ---
:1970 Author Organization [facility] Address [address] [place] [address] Care Team Providers Name Role Phone Unavailable Primary Care Provider Unavailable Encounter Details Date Type Department Care Team Description 06/13/2020 Orders Only Division of Hematology Janusz Govea M yelofibrosis (HCC) in [facility].B.B.S. 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
--- OUTSIDE RECORDS SUMMARY | 2022-05-02 12:11 | XMS_ITS | Encounter Summary ---
:1970 Author Organization [facility] Address [address] [place] [address] Care Team Providers Name Role Phone Unavailable Primary Care Provider Unavailable Reason for Visit Episode Based Medications (Routine) - Closed Specialty Diagnoses / Procedures Referred By Contact Refer red To Contact Medical Oncology / Diagnoses Myelofibrosis (HCC) Janusz Govea Rst Inf Onc [facility] Oncology Procedures ONCBCN INFUSION APPOINTMENT REQUEST 09 ONC THER INF M.B.B.S. [address] [place] [address] [place] [phone] Referral ID Status Reason Start Date Expiration Date Visits Requ ested Visits Authorized [id number] Closed 06/06/2020 06/20/2021 99 30 Encounter Details Date Type Department Care Team Description 06/20/2020 Infusion Department of Oncology Janusz Govea M yelofibrosis (HCC) in [facility] [place] M.B.B.S. 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 Last Filed Vital Signs Vital Sign Reading Time Taken Comments Blood Pressure 132/76 06/20/2020 8:59 AM WATER CARTER Pulse 126 06/20/2020 8:59 AM WATER CARTER Temperature 36.7 ??C (98.1 ??F) 06/20/2020 8:59 AM WATER CARTER Respiratory Rate - - Oxygen Saturation - - Inhaled Oxygen Concentration - - Weight 94.4 kg (208 lb 1.8 oz) 06/20/2020 8:59 AM WATER CARTER Height - - Body Mass Index 32.1 06/06/2020 8:02 AM WATER CARTER documented in 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 Administered Medications Inactive Administered Medications - up to 3 most recent administrations Medication Order MAR Action Action Date Dose Rate Site Research IRB [id number] New Bag 06/20/2020 9:41 AM WATER CARTER 850 mg 5 00 mL/hr 850 mg in NaCl 0.9% (non-PVC) 1,085 mL IVPB 850 mg (rounded from 849.09 mg = 9.3 mg/kg ? 91.3 kg Order-specific weight), intravenous, at 500 mL/hr, Once, On Fri06/20/20 at 0900, For 1 dose, CSTDs cannot be used. Flush with 30ml at IV site following completion of . Monitor BP (pre dose & post dose), HR, temp, resp (pre-dose and as clinically indicated). Administer using 1.2 micron filter tubing via a peripheral or central line. sodium chloride (flush) 0.9 % injection 30 mL Given 06/20/2020 12:37 PM WATER CARTER 30 mL 30 mL, intravenous, Once, On Fri06/20/20 at 1115, For 1 dose, Post chemotherapy flush documented in this encounter
--- OUTSIDE RECORDS SUMMARY | 2022-05-02 12:11 | XMS_ITS | Encounter Summary ---
:1970 Author Organization [facility] Address [address] [place] [address] Care Team Providers Name Role Phone Unavailable Primary Care Provider Unavailable Encounter Details Date Type Department Care Team Description 06/13/2020 Hospital Encounter Department of Gangat, Myelofib rosis (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 CBC WITH DIFFERENTIAL, B Routine 06/13/2020 8:41 Myelofibrosis (HCC) Results for this AM GRANITE CUTTER APPRENTICE procedure are i n the results section. URIC ACID, S/P Routine 06/13/2020 8:41 Myelofibrosis (HCC) Res ults for this AM GRANITE CUTTER APPRENTICE procedure are i n the results section. BUN (BLOOD UREA Routine 06/13/2020 8:41 Myelofibrosis (HCC) Re sults for this NITROGEN), S/P AM GRANITE CUTTER APPRENTICE procedure are in the results section. ALANINE AMINOTRANSFERASE Routine 06/13/2020 8:41 Myelofibrosis (HCC) Results for this (ALT), S/P AM GRANITE CUTTER APPRENTICE procedure are i n the results section. ASPARTATE Routine 06/13/2020 8:41 Myelofibrosis (HCC) Resul ts for this AMINOTRANSFERASE (AST), AM GRANITE CUTTER APPRENTICE proc edure are in S/P the results section. SODIUM, S/P Routine 06/13/2020 8:41 Myelofibrosis (HCC) Resul ts for this AM GRANITE CUTTER APPRENTICE procedure are i n the results section. PROTEIN, TOTAL, S/P Routine 06/13/2020 8:41 Myelofibrosis (HCC ) Results for this AM GRANITE CUTTER APPRENTICE procedure are i n the results section. POTASSIUM, S/P Routine 06/13/2020 8:41 Myelofibrosis (HCC) Res ults for this AM GRANITE CUTTER APPRENTICE procedure are i n the results section. ALKALINE PHOSPHATASE, Routine 06/13/2020 8:41 Myelofibrosis (H CC) Results for this S/P AM GRANITE CUTTER APPRENTICE procedure are i n the results section. MAGNESIUM, S Routine 06/13/2020 8:41 Myelofibrosis (HCC) Resul ts for this AM GRANITE CUTTER APPRENTICE procedure are i n the results section. GLUCOSE, RANDOM, S/P Routine 06/13/2020 8:41 Myelofibrosis (HC C) Results for this AM GRANITE CUTTER APPRENTICE procedure are i n the results section. CREATININE WITH EGFR, Routine 06/13/2020 8:41 Myelofibrosis (H CC) Results for this S/P AM GRANITE CUTTER APPRENTICE procedure are i n the results section. CHLORIDE, S/P Routine 06/13/2020 8:41 Myelofibrosis (HCC) Resu lts for this AM GRANITE CUTTER APPRENTICE procedure are i n the results section. CALCIUM, TOT, S/P Routine 06/13/2020 8:41 Myelofibrosis (HCC) Results for this AM GRANITE CUTTER APPRENTICE procedure are i n the results section. BILIRUBIN, TOT, S/P Routine 06/13/2020 8:41 Myelofibrosis (HCC ) Results for this AM GRANITE CUTTER APPRENTICE procedure are i n the results section. ALBUMIN, S/P Routine 06/13/2020 8:41 Myelofibrosis (HCC) Resul ts for this AM GRANITE CUTTER APPRENTICE procedure are i n the results section. documented in this encounter Results (ABNORMAL) Morphology Evaluation (Special Smear) (06/13/2020 8:41 AM GRANITE CUTTER APPRENTICE) [facility] gist Method Time Signature Neutrophilic Segs 72 50 - 75 % 06/13/2020 DHPM and Bands 10:24 AM GRANITE CUTTER APPRENTICE Lymphocytes 12 (L) 18 - 42 % 06/13/2020 DHPM 10:24 AM GRANITE CUTTER APPRENTICE Monocytes 2 2 - 11 % 06/13/2020 DHPM 10:24 AM GRANITE CUTTER APPRENTICE Eosinophils 1 1 - 3 % 06/13/2020 DHPM 10:24 AM GRANITE CUTTER APPRENTICE Metamyelocytes 3 (H) <1 % 06/13/2020 DHPM 10:24 AM GRANITE CUTTER APPRENTICE Myelocytes 9 (H) <0.5 % 06/13/2020 DHPM 10:24 AM GRANITE CUTTER APPRENTICE Blasts 1 (H) <1 % 06/13/2020 DHPM 10:24 AM GRANITE CUTTER APPRENTICE Nucleated RBC 5 /100 WBC 06/13/2020 DHPM 10:24 AM GRANITE CUTTER APPRENTICE Manual Absolute 2.09 1.56 - 06/13/2020 DHPM Neutrophil Count 6.45 10:24 AM GRANITE CUTTER APPRENTICE x10(9)/L Comment: ----ADDITIONAL INFORMATION---- The manual absolute neutrophil count is derived from a manual differential count and therefore is not exactly comparable to the automated absolute halie trophil count. Specimen Anatomical Collection Method Collection Time Receive d Time (Source) Location / / Volume Laterality Blood 06/13/2020 8:41 AM 0 9:16 GRANITE CUTTER APPRENTICE AM GRANITE CUTTER APPRENTICE Janusz Dillon.B.B.S. LAB BLOOD ADD-ON Performing Organization Address City/Va Hospital/ZIP Code Phon e Number [facility] - [address] [place], [place] [address] (ABNORMAL) Protein, Total (06/13/2020 8:41 AM GRANITE CUTTER APPRENTICE) athologist Signature Protein, 5.9 (L) 6.3 - 7.9 06/13/2020 DTL Total, S g/dL 9:44 AM GRANITE CUTTER APPRENTICE Specimen Anatomical Collection Method Collection Time Receive d Time (Source) Location / / Volume Laterality Blood (Blood, 06/13/2020 8:41 AM 06/13/20 20 9:26 Venous) GRANITE CUTTER APPRENTICE AM GRANITE CUTTER APPRENTICE Janusz Dillon.B.B.S. LAB BLOOD ADD-ON Performing Organization Address City/Va Hospital/[facility] Code Phon e Number ED [facility] - [address] [place], [place] [address] [place] [address] [place] [id number] [place] [address] Albumin (06/13/2020 8:41 AM GRANITE CUTTER APPRENTICE) athologist Signature Albumin, S 4.3 3.5 - 5.0 06/13/2020 DTL g/dL 9:44 AM GRANITE CUTTER APPRENTICE Specimen Anatomical Collection Method Collection Time Receive d Time (Source) Location / / Volume Laterality Blood (Blood, 06/13/2020 8:41 AM 06/13/20 20 9:26 Venous) GRANITE CUTTER APPRENTICE AM GRANITE CUTTER APPRENTICE Janusz Dillon.B.B.S. LAB BLOOD ADD-ON Performing Organization Address City/State/ZIP Code Phon e Number [facility] - [address] [place], [place] [address] [facility] [place], [place] [phone] [place] [address] Glucose, Random (06/13/2020 8:41 AM GRANITE CUTTER APPRENTICE) athologist Signature Glucose, S 81 70 - 140 06/13/2020 DTL mg/dL 9:44 AM GRANITE CUTTER APPRENTICE Specimen Anatomical Collection Method Collection Time Receive d Time (Source) Location / / Volume Laterality Blood (Blood, 06/13/2020 8:41 AM 06/13/20 9:26 Venous) GRANITE CUTTER APPRENTICE AM GRANITE CUTTER APPRENTICE Janusz Govea M.B.B.S. LAB BLOOD TROPONIN Performing Organization Address City/Va Hospital/ZIP Code Phon e Number [facility] - [address] [address] [address] Uric Acid (06/13/2020 8:41 AM GRANITE CUTTER APPRENTICE) athologist Signature Uric Acid, S 5.6 2.7 - 6.1 06/13/2020 DTL mg/dL 9:44 AM GRANITE CUTTER APPRENTICE Specimen Anatomical Collection Method Collection Time Receive d Time (Source) Location / / Volume Laterality Blood (Blood, 06/13/2020 8:41 AM 06/13/20 9:26 Venous) GRANITE CUTTER APPRENTICE AM GRANITE CUTTER APPRENTICE Janusz Govea M.B.B.S. LAB BLOOD ADD-ON Performing Organization Address City/Va Hospital/[facility] Phon e Number [facility] - [address] [address] [address] (ABNORMAL) Creatinine with Estimated GFR (06/13/2020 8:41 AM GRANITE CUTTER APPRENTICE) Analysis Performed At Patho logis Time Signature Creatinine 1.09 (H) 0.59 - 06/13/2020 DTL 1.04 mg/dL 9:44 AM GRANITE CUTTER APPRENTICE eGFR-Non 59 (L) >=60 06/13/2020 DTL Black/ mL/min/BSA 9:44 AM GRANITE CUTTER APPRENTICE [place] Comment: ----ADDITIONAL INFORMATION---- Estimated GFR calculated using the 2009 CKD_EPI creatinine equation. eGFR-Black/ 67 >=60 mL/min/BSA 2019 9:44 AM GRANITE CUTTER APPRENTICE DTL Comment: ----ADDITIONAL INFORMATION---- Estimated GFR calculated using the 2009 CKD_EPI creatinine equation. Specimen Anatomical Collection Method Collection Time Receive d Time (Source) Location / / Volume Laterality Blood (Blood, 06/13/2020 8:41 AM 06/13/20 9:26 Venous) GRANITE CUTTER APPRENTICE AM GRANITE CUTTER APPRENTICE Janusz Dillon.Cain.B.S. LAB BLOOD ADD-ON Performing Organization Address City/[facility] Hospital/[facility] Phon e Number [facility] - [address] (ABNORMAL) BUN (Blood Urea Nitrogen) (06/13/2020 8:41 AM GRANITE CUTTER APPRENTICE) athologist Signature BUN (Blood Urea 25 (H) 6 - 21 06/13/2020 DTL Nitrogen), S mg/dL 9:44 AM GRANITE CUTTER APPRENTICE Specimen Anatomical Collection Method Collection Time Receive d Time (Source) Location / / Volume Laterality Blood (Blood, 06/13/2020 8:41 AM 06/13/20 9:26 Venous) GRANITE CUTTER APPRENTICE AM GRANITE CUTTER APPRENTICE Janusz Dillon.B.B.S. LAB BLOOD ADD-ON Performing Organization Address City/[facility] Hospital/[facility] Code Phon e Number [facility] - [address] Bilirubin, Total (06/13/2020 8:41 AM GRANITE CUTTER APPRENTICE) athologist Signature Bilirubin, 0.5 <=1.2 mg/dL 06/13/2020 DT Total, S 9:44 AM GRANITE CUTTER APPRENTICE Specimen Anatomical Collection Method Collection Time Receive d Time (Source) Location / / Volume Laterality Blood (Blood, 06/13/2020 8:41 AM 06/13/20 9:26 Venous) GRANITE CUTTER APPRENTICE AM GRANITE CUTTER APPRENTICE Janusz Dillon.B.B.S. LAB BLOOD ADD-ON Performing Organization Address City/State/ZIP [facility] Phon e Number [facility] - [address] Calcium, Total (06/13/2020 8:41 AM GRANITE CUTTER APPRENTICE) athologist Signature Calcium, Total, 8.8 8.6 - 10.0 06/13/2020 DTL S mg/dL 9:44 AM GRANITE CUTTER APPRENTICE Specimen Anatomical Collection Method Collection Time Receive d Time (Source) Location / / Volume Laterality Blood (Blood, 06/13/2020 8:41 AM 06/13/20 9:26 Venous) GRANITE CUTTER APPRENTICE AM GRANITE CUTTER APPRENTICE Naseema Gangat M.B.B.S. LAB BLOOD ADD-ON Performing Organization Address City/State/ZIP Code Phon e Number [facility] - [address] [place], [place] [address] [facility] [place] [address] [facility] [address] (ABNORMAL) Chloride (06/13/2020 8:41 AM GRANITE CUTTER APPRENTICE) P athologist Signature Chloride, S 108 (H) 98 - 107 06/13/2020 DTL mmol/L 9:44 AM GRANITE CUTTER APPRENTICE Specimen Anatomical Collection Method Collection Time Receive d Time (Source) Location / / Volume Laterality Blood (Blood, 06/13/2020 8:41 AM 06/13/20 9:26 Venous) GRANITE CUTTER APPRENTICE AM GRANITE CUTTER APPRENTICE Naseema Gangat M.B.B.S. LAB BLOOD ADD-ON Performing Organization Address City/State/ZIP Code Phon e Number [facility] - [address] [place], [place] [address] [facility] [place] [address] [facility] [address] Magnesium (06/13/2020 8:41 AM GRANITE CUTTER APPRENTICE) P athologist Signature Magnesium, S 2.1 1.7 - 2.3 06/13/2020 DTL mg/dL 9:44 AM GRANITE CUTTER APPRENTICE Specimen Anatomical Collection Method Collection Time Receive d Time (Source) Location / / Volume Laterality Blood (Blood, 06/13/2020 8:41 AM 06/13/20 9:26 Venous) GRANITE CUTTER APPRENTICE AM GRANITE CUTTER APPRENTICE Naseema Gangat M.B.B.S. LAB BLOOD ADD-ON Performing Organization Address City/State/ZIP Code Phon e Number [facility] - [address] [place], [place] [address] [facility] [place] [address] [facility] [address] Potassium (06/13/2020 8:41 AM GRANITE CUTTER APPRENTICE) P athologist Signature Potassium, S 5.1 3.6 - 5.2 06/13/2020 DTL mmol/L 9:44 AM GRANITE CUTTER APPRENTICE Specimen Anatomical Collection Method Collection Time Receive d Time (Source) Location / / Volume Laterality Blood (Blood, 06/13/2020 8:41 AM 06/13/20 9:26 Venous) GRANITE CUTTER APPRENTICE AM GRANITE CUTTER APPRENTICE Janusz Mcdonaldgat M.B.B.S. LAB BLOOD ADD-ON Performing Organization Address City/State/ZIP [facility] Phon e Number [facility] - [address] [facility] Sodium (06/13/2020 8:41 AM GRANITE CUTTER APPRENTICE) P athologist Signature Sodium, S 142 135 - 145 06/13/2020 9:44 DTL mmol/L AM GRANITE CUTTER APPRENTICE Specimen Anatomical Collection Method Collection Time Receive d Time (Source) Location / / Volume Laterality Blood (Blood, 06/13/2020 8:41 AM 06/13/20 9:26 Venous) GRANITE CUTTER APPRENTICE AM GRANITE CUTTER APPRENTICE Nasjonathan Govea M.B.B.S. LAB BLOOD ADD-ON Performing Organization Address City/State/[facility] Phon e Number [facility] - [address] (ABNORMAL) Alkaline Phosphatase (06/13/2020 8:41 AM GRANITE CUTTER APPRENTICE) P athologist Signature Alkaline 33 (L) 35 - 104 06/13/2020 DTL Phosphatase, S U/L 9:44 AM GRANITE CUTTER APPRENTICE Specimen Anatomical Collection Method Collection Time Receive d Time (Source) Location / / Volume Laterality Blood (Blood, 06/13/2020 8:41 AM 06/13/20 9:26 Venous) GRANITE CUTTER APPRENTICE AM GRANITE CUTTER APPRENTICE Nasjonathan Mcdonaldgat M.B.B.S. LAB BLOOD ADD-ON Performing Organization Address City/State/[facility] Phon e Number [facility] - [address] AST (Aspartate Aminotransferase) (06/13/2020 8:41 AM GRANITE CUTTER APPRENTICE) Patholo gist Method Time Signature Aspartate 25 8 - 43 06/13/2020 DTL Aminotransferase U/L 9:44 AM GRANITE CUTTER APPRENTICE (AST), S Specimen Anatomical Collection Method Collection Time Receive d Time (Source) Location / / Volume Laterality Blood (Blood, 06/13/2020 8:41 AM 06/13/20 20 9:26 Venous) GRANITE CUTTER APPRENTICE AM GRANITE CUTTER APPRENTICE Janusz Govea M.B.B.S. LAB BLOOD ADD-ON Performing Organization Address City/[facility] Hospital/[facility] Phon e Number [facility] - [address] ALT (Alanine Aminotransferase) (06/13/2020 8:41 AM GRANITE CUTTER APPRENTICE) [facility] Method Time Signature Alanine 14 7 - 45 06/13/2020 DTL Aminotransferase U/L 9:44 AM GRANITE CUTTER APPRENTICE (ALT), S Specimen Anatomical Collection Method Collection Time Receive d Time (Source) Location / / Volume Laterality Blood (Blood, 06/13/2020 8:41 AM 06/13/20 9:26 Venous) GRANITE CUTTER APPRENTICE AM GRANITE CUTTER APPRENTICE Janusz Dillon.B.B.S. LAB BLOOD ADD-ON Performing Organization Address City/[facility] Hospital/[facility] Phon e Number [facility] - [address] (ABNORMAL) CBC with Differential, Blood (06/13/2020 8:41 AM GRANITE CUTTER APPRENTICE) [facility] Method Time Signature Hemoglobin 6.5 (L) 11.6 - 06/13/2020 DTL 15.0 g/dL 9:27 AM GRANITE CUTTER APPRENTICE Hematocrit 22.7 (L) 35.5 - 06/13/2020 DTL 44.9 % 9:27 AM GRANITE CUTTER APPRENTICE Erythrocytes 2.40 (L) 3.92 - 06/13/2020 DTL 5.13 9:27 AM GRANITE CUTTER APPRENTICE x10(12)/L MCV 94.6 78.2 - 06/13/2020 DTL 97.9 fL 9:27 AM GRANITE CUTTER APPRENTICE RBC Distrib Width 27.3 (H) 12.2 - 06/13/2020 DTL 16.1 % 9:27 AM GRANITE CUTTER APPRENTICE Platelet Count 106 (L) 157 - 371 06/13/2020 DTL x10(9)/L 10:23 AM GRANITE CUTTER APPRENTICE Leukocytes 2.9 (L) 3.4 - 9.6 06/13/2020 DTL x10(9)/L 10:23 AM GRANITE CUTTER APPRENTICE Comment: Results confirmed by smear. Neutrophils SeeComment 1.56 - 6.45 x10(9)/L 06/13/2020 10:23 AM GRANITE CUTTER APPRENTICE DTL Comment: Auto-diff results not valid. Se e manual differential. Specimen Anatomical Collection Method Collection Time Receive d Time (Source) Location / / Volume Laterality Blood (Blood, 06/13/2020 8:41 AM 06/13/20 20 9:16 Venous) GRANITE CUTTER APPRENTICE AM GRANITE CUTTER APPRENTICE Janusz Ardon LAB BLOOD ADD-ON Performing Organization Address City/State/ZIP Code Phon e Number [facility] - [address] [place], [place] [address] [facility] [place] [address] Laboratories-[facility] [address] documented in this encounter Visit Diagnoses Diagnosis Myelofibrosis (HCC) documented in this encounter
--- OUTSIDE RECORDS SUMMARY | 2022-05-02 12:11 | XMS_ITS | Encounter Summary ---
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
--- OUTSIDE RECORDS SUMMARY | 2022-05-02 12:11 | XMS_ITS | Encounter Summary ---
:1970 Author Organization [facility] Address [address] [place] [id number] Care Team Providers Name Role Phone Unavailable Primary Care Provider Unavailable Reason for Visit Reason Comments Blood Product Administration Encounter Details Date Type Department Care Team Description 06/20/2020 Infusion Department of Infusion Janusz Govea [facility] [address] [id number] [phone] Social History Tobacco Use Types Packs/Day Years Used Date Smoking Tobacco: Former Smokeless Tobacco: Never Sex Assigned at Date Recorded Female 07/24/2021 11:03 AM [employer] documented as of this encounter Last Filed Vital Signs Vital Sign Reading Time Taken Comments Blood Pressure 134/70 06/20/2020 6:28 PM [employer] Pulse 70 06/20/2020 6:28 PM [employer] Temperature 36.9 ??C (98.4 ??F) 06/20/2020 6:28 PM [employer] Respiratory Rate 18 06/20/2020 6:28 PM [employer] Oxygen Saturation - - Inhaled Oxygen Concentration - - Weight - - Height - - Body Mass Index - - documented in this encounter Plan of Treatment Pending Results Name Type Priority Associated Diagnoses Date/Ti me Prepare Red Blood Blood Bank Routine Myelofibrosis (HCC) 02/2020 8:04 AM [employer] Cells, 2 Units documented as of this encounter Procedures Procedure Name Priority Date/Time Associated Diagnosis Comme nts TRANSFUSE RED BLOOD Routine 06/20/2020 4:04 PM [employer] Myelofibros is (HCC) CELLS TRANSFUSE RED BLOOD Routine 06/20/2020 1:59 PM [employer] Myelofibros is (HCC) CELLS PREPARE RED BLOOD CELLS Routine 06/20/2020 8:04 AM [employer] Myelofi brosis (HCC) documented in this encounter Results Transfuse Red Blood Cells : (06/20/2020 7:13 PM [employer]PER[employer]) Naseema Gangat M.B.B.S. BLOOD TRANSFUSION ORDERABLES Transfuse Red Blood Cells : , 2 Units (06/20/2020 7:13 PM [employer]PER[employer]) Naseema Gangat M.B.B.S. BLOOD TRANSFUSION ORDERABLES Transfuse Red Blood Cells : (06/20/2020 4:04 PM [employer]PER[employer]) Naseema Gangat M.B.B.S. BLOOD TRANSFUSION ORDERABLES documented in this encounter Visit Diagnoses Diagnosis Myelofibrosis (HCC) - Primary documented in this encounter Administered Medications Inactive Administered Medications - up to 3 most recent administrations Medication Order MAR Action Action Date Dose Rate Site NaCl 0.9% infusion New Bag 06/20/2020 6:12 PM [employer] 180 mL/hr 180 mL/hr 20-500 mL/hr, intravenous, As needed, Between Unit of Blood Products, Starting on 06/20/20 at 1345, Infuse at the same rate as the blood infusion until tubing cleared. Nurse may reduce rate to 20 mL/hour or as otherwise directed until next blood infusion arrives then discontinue when infusion complete. sodium chloride 0.9 % injection 3 mL Given 06/20/2020 6:29 PM [employer] 3 mL 3 mL, intra-catheter, As needed, line care, Starting on 06/20/20 at 1345, Prior to and following infusion and between multiple consecutive infusions. documented in this encounter
--- OUTSIDE RECORDS SUMMARY | 2022-05-02 12:11 | XMS_ITS | Encounter Summary ---
:1970 Author Organization [facility] Address [address] [place] [address] Care Team Providers Name Role Phone Unavailable Primary Care Provider Unavailable Reason for Referral Outpatient (Routine) - Closed Specialty Diagnoses / Procedures Referred By Contact Refer red To Contact Hematology Oncology Diagnoses [facility] [address] [place] [phone] Referral ID Status Reason Start Date Expiration Date Visits Requ ested Visits Authorized [id number] Closed 06/16/2020 06/16/2021 1 1 Scheduling Instructions Please schedule with Dr. Govea at 1030a m (Dr. 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 [address] [place] [phone] Referral ID Status Reason Start Date Expiration Date Visits Requ ested Visits Authorized [id number] Closed 06/16/2020 06/16/2021 1 1 Scheduling Instructions Please schedule with Dr. Govea at 8am ( calendar override approved by Dr. Govea) ERING MACHINE FEEDER Encounter Details Date Type Department Care Team Description 06/16/2020 Orders Only Division of [place], Myelofibrosis ( HCC) Hematology in [place] (Primary Dx) [place], [place] [address] [facility] [address] [place] [phone] Social History Tobacco Use Types Packs/Day Years Used Date Smoking Tobacco: Former Smokeless Tobacco: Never Sex Assigned at Date Recorded Female 07/24/2021 11:03 AM GATHERING MACHINE FEEDER documented as of this encounter Plan of Treatment Scheduled Referrals Name Type Priority Associated Diagnoses [facility] Outpatient Referral Routine Myelofibrosis (H CC) Expected: visit (clinic) 07/03/2020, Expires: 07/03/2023 Hematology office Outpatient Referral Routine Myelofibrosis (H CC) Expected: visit (clinic) 07/31/2020, Expires: 07/31/2023 documented as of this encounter Results (ABNORMAL) Protein, Total (08/01/2020 8:46 AM GATHERING MACHINE FEEDER) P athologist Signature Protein, 5.8 (L) 6.3 - 7.9 08/01/2020 DTL Total, S g/dL 9:59 AM GATHERING MACHINE FEEDER Specimen Anatomical Collection Method Collection Time Receive d Time (Source) Location / / Volume Laterality Blood (Blood, 08/01/2020 8:46 AM 08/01/19 9:11 Venous) GATHERING MACHINE FEEDER AM GATHERING MACHINE FEEDER Janusz Ardon LAB BLOOD ADD-ON Performing Organization Address City/State/ZIP Code Phon e Number [facility] - [address] [place], [place] [address] [facility] [place] [address] [facility] [address] [facility] Albumin (08/01/2020 8:46 AM GATHERING MACHINE FEEDER) P athologist Signature Albumin, S 4.3 3.5 - 5.0 08/01/2020 DTL g/dL 9:59 AM GATHERING MACHINE FEEDER Specimen Anatomical Collection Method Collection Time Receive d Time (Source) Location / / Volume Laterality Blood (Blood, 08/01/2020 8:46 AM 08/01/19 9:11 Venous) GATHERING MACHINE FEEDER AM GATHERING MACHINE FEEDER Janusz Dillon.Cain.B.S. LAB BLOOD ADD-ON Performing Organization Address City/[facility]/ZIP [facility] Phon e Number [facility] - [address] Glucose, Random (08/01/2020 8:46 AM GATHERING MACHINE FEEDER) P athologist Signature Glucose, S 126 70 - 140 08/01/2020 DTL mg/dL 9:59 AM GATHERING MACHINE FEEDER Specimen Anatomical Collection Method Collection Time Receive d Time (Source) Location / / Volume Laterality Blood (Blood, 08/01/2020 8:46 AM 08/01/19 9:11 Venous) GATHERING MACHINE FEEDER AM GATHERING MACHINE FEEDER Janusz Dillon.B.B.S. LAB BLOOD TROPONIN Performing Organization Address City/[facility]/ZIP [facility] Phon e Number [facility] - [address] Uric Acid (08/01/2020 8:46 AM GATHERING MACHINE FEEDER) P athologist Signature Uric Acid, S 3.9 2.7 - 6.1 08/01/2020 DTL mg/dL 9:59 AM GATHERING MACHINE FEEDER Specimen Anatomical Collection Method Collection Time Receive d Time (Source) Location / / Volume Laterality Blood (Blood, 08/01/2020 8:46 AM 08/01/19 9:11 Venous) GATHERING MACHINE FEEDER AM GATHERING MACHINE FEEDER Janusz Dillon.B.B.S. LAB BLOOD ADD-ON Performing Organization Address City/State/ZIP Code Phon e Number [facility] - 200 [place], [place] [address] (ABNORMAL) Creatinine with Estimated GFR (08/01/2020 8:46 AM GATHERING MACHINE FEEDER) Analysis Performed At Patho logist Time Signature Creatinine 1.06 (H) 0.59 - 08/01/2020 DTL 1.04 mg/dL 9:59 AM GATHERING MACHINE FEEDER eGFR-Non 61 >=60 08/01/2020 DTL Black/ mL/min/BSA 9:59 AM GATHERING MACHINE FEEDER Italian Comment: ----ADDITIONAL INFORMATION---- Estimated GFR calculated using the 2009 CKD_EPI creatinine equation. eGFR-Black/ 70 >=60 mL/min/BSA 2020 9:59 AM GATHERING MACHINE FEEDER DTL Comment: ----ADDITIONAL INFORMATION---- Estimated GFR calculated using the 2009 CKD_EPI creatinine equation. Specimen Anatomical Collection Method Collection Time Receive d Time (Source) Location / / Volume Laterality Blood (Blood, 08/01/2020 8:46 AM 08/01/19 9:11 Venous) GATHERING MACHINE FEEDER AM GATHERING MACHINE FEEDER Janusz Higgins.B.S. LAB BLOOD ADD-ON Performing Organization Address City/State/ZIP Code Phon e Number [facility] - [address] [place], [place] [address] [place] [id number] [place] [address] BUN (Blood Urea Nitrogen) (08/01/2020 8:46 AM GATHERING MACHINE FEEDER) P athologist Signature BUN (Blood Urea 19 6 - 21 08/01/2020 DTL Nitrogen), S mg/dL 9:59 AM GATHERING MACHINE FEEDER Specimen Anatomical Collection Method Collection Time Receive d Time (Source) Location / / Volume Laterality Blood (Blood, 08/01/2020 8:46 AM 08/01/19 9:11 Venous) GATHERING MACHINE FEEDER AM GATHERING MACHINE FEEDER Janusz Dillon.Cain.B.S. LAB BLOOD ADD-ON Performing Organization Address City/State/ZIP Code Phon e Number [facility] - [address] [place], [place] [address] [place] [address] Bilirubin, Total (08/01/2020 8:46 AM GATHERING MACHINE FEEDER) P athologist Signature Bilirubin, 1.0 <=1.2 mg/dL 08/01/2020 DTL Total, S 9:59 AM GATHERING MACHINE FEEDER Specimen Anatomical Collection Method Collection Time Receive d Time (Source) Location / / Volume Laterality Blood (Blood, 08/01/2020 8:46 AM 08/01/19 9:11 Venous) GATHERING MACHINE FEEDER AM GATHERING MACHINE FEEDER Janusz Dillon.B.B.S. LAB BLOOD ADD-ON Performing Organization Address City/State/ZIP Code Phon e Number [facility] - 200 [place], [place] [address] [place] [address] Calcium, Total (08/01/2020 8:46 AM GATHERING MACHINE FEEDER) P athologist Signature Calcium, Total, 8.8 8.6 - 10.0 08/01/2020 DTL S mg/dL 9:59 AM GATHERING MACHINE FEEDER Specimen Anatomical Collection Method Collection Time Receive d Time (Source) Location / / Volume Laterality Blood (Blood, 08/01/2020 8:46 AM 08/01/19 9:11 Venous) GATHERING MACHINE FEEDER AM GATHERING MACHINE FEEDER Janusz Holt.S. LAB BLOOD ADD-ON Performing Organization Address City/[facility] Phon e Number [facility] - [id number] [place] [address] Chloride (08/01/2020 8:46 AM GATHERING MACHINE FEEDER) P athologist Signature Chloride, S 105 98 - 107 08/01/2020 DTL mmol/L 9:59 AM GATHERING MACHINE FEEDER Specimen Anatomical Collection Method Collection Time Receive d Time (Source) Location / / Volume Laterality Blood (Blood, 08/01/2020 8:46 AM 08/01/19 9:11 Venous) GATHERING MACHINE FEEDER AM GATHERING MACHINE FEEDER Janusz Holt.S. LAB BLOOD ADD-ON Performing Organization Address City/[facility] Phon e Number [facility] - 200 [place] [address] [place], [place] [phone] [place] [address] Magnesium (08/01/2020 8:46 AM GATHERING MACHINE FEEDER) P athologist Signature Magnesium, S 2.2 1.7 - 2.3 08/01/2020 DTL mg/dL 9:59 AM GATHERING MACHINE FEEDER Specimen Anatomical Collection Method Collection Time Receive d Time (Source) Location / / Volume Laterality Blood (Blood, 08/01/2020 8:46 AM 08/01/19 9:11 Venous) GATHERING MACHINE FEEDER AM GATHERING MACHINE FEEDER Naseema Gangat M.B.B.S. LAB BLOOD ADD-ON Performing Organization Address City/[facility]/ZIP [facility] Phon e Number [facility] - [address] 200 [facility] Potassium (08/01/2020 8:46 AM GATHERING MACHINE FEEDER) athologist Signature Potassium, S 4.4 3.6 - 5.2 08/01/2020 DTL mmol/L 9:59 AM GATHERING MACHINE FEEDER Specimen Anatomical Collection Method Collection Time Receive d Time (Source) Location / / Volume Laterality Blood (Blood, 08/01/2020 8:46 AM 08/01/19 9:11 Venous) GATHERING MACHINE FEEDER AM GATHERING MACHINE FEEDER Janusz Dillon.Cain.B.S. LAB BLOOD ADD-ON Performing Organization Address City/[facility] Phon e Number [facility] - [phone] [place] [address] Sodium (08/01/2020 8:46 AM GATHERING MACHINE FEEDER) athologist Signature Sodium, S 143 135 - 145 08/01/2020 9:59 DTL mmol/L AM GATHERING MACHINE FEEDER Specimen Anatomical Collection Method Collection Time Receive d Time (Source) Location / / Volume Laterality Blood (Blood, 08/01/2020 8:46 AM 08/01/19 9:11 Venous) GATHERING MACHINE FEEDER AM GATHERING MACHINE FEEDER Janusz Higgins.B.S. LAB BLOOD ADD-ON Performing Organization Address City/[facility] Phon e Number [facility] - [address] Alkaline Phosphatase (08/01/2020 8:46 AM GATHERING MACHINE FEEDER) athologist Signature Alkaline 38 35 - 104 08/01/2020 DTL Phosphatase, S U/L 9:59 AM GATHERING MACHINE FEEDER Specimen Anatomical Collection Method Collection Time Receive d Time (Source) Location / / Volume Laterality Blood (Blood, 08/01/2020 8:46 AM 08/01/19 9:11 Venous) GATHERING MACHINE FEEDER AM GATHERING MACHINE FEEDER Nasjonathan Govea M.B.B.S. LAB BLOOD ADD-ON Performing Organization Address City/[facility]/ZIP Code Phon e Number [facility] - 200 [place], [place] [address] [facility] [address] AST (Aspartate Aminotransferase) (08/01/2020 8:46 AM GATHERING MACHINE FEEDER) [facility] Method Time Signature Aspartate 33 8 - 43 08/01/2020 DTL Aminotransferase U/L 9:59 AM GATHERING MACHINE FEEDER (AST), S Specimen Anatomical Collection Method Collection Time Receive d Time (Source) Location / / Volume Laterality Blood (Blood, 08/01/2020 8:46 AM 08/01/19 9:11 Venous) GATHERING MACHINE FEEDER AM GATHERING MACHINE FEEDER Nasjonathan Mcdonaldgat M.B.B.S. LAB BLOOD ADD-ON Performing Organization Address [facility] Phon e Number [facility] - [address] [place] [address] [facility] [place] [address] ALT (Alanine Aminotransferase) (08/01/2020 8:46 AM GATHERING MACHINE FEEDER) [facility] Method Time Signature Alanine 12 7 - 45 08/01/2020 DTL Aminotransferase U/L 9:59 AM GATHERING MACHINE FEEDER (ALT), S Specimen Anatomical Collection Method Collection Time Receive d Time (Source) Location / / Volume Laterality Blood (Blood, 08/01/2020 8:46 AM 08/01/19 9:11 Venous) GATHERING MACHINE FEEDER AM GATHERING MACHINE FEEDER Nasjonathan Govea M.B.B.S. LAB BLOOD ADD-ON Performing Organization Address City/[facility]/ZIP [facility] Phon e Number [facility] - 200 [place], [place] [address] (ABNORMAL) CBC with Differential, Blood (08/01/2020 8:46 AM GATHERING MACHINE FEEDER) [facility] Method Time Signature Hemoglobin 6.6 (L) 11.6 - 08/01/2020 DTL 15.0 g/dL 9:31 AM GATHERING MACHINE FEEDER Hematocrit 22.2 (L) 35.5 - 08/01/2020 DTL 44.9 % 9:31 AM GATHERING MACHINE FEEDER Erythrocytes 2.44 (L) 3.92 - 08/01/2020 DTL 5.13 9:31 AM GATHERING MACHINE FEEDER x10(12)/L MCV 91.0 78.2 - 08/01/2020 DTL 97.9 fL 9:31 AM GATHERING MACHINE FEEDER RBC Distrib Width 25.0 (H) 12.2 - 08/01/2020 DTL 16.1 % 9:31 AM GATHERING MACHINE FEEDER Platelet Count 74 (L) 157 - 371 08/01/2020 DTL x10(9)/L 10:46 AM GATHERING MACHINE FEEDER Comment: Results confirmed by smear, no clumping or interference seen. Leukocytes 2.8 (L) 3.4 - 9.6 x10(9)/L 08/01/2020 10:46 AM GATHERING MACHINE FEEDER DTL Comment: Results confirmed by smear. Neutrophils SeeComment 1.56 - 6.45 x10(9)/L 08/01/2020 10:46 AM GATHERING MACHINE FEEDER DTL Comment: Auto-diff results not valid. Se e manual differential. Specimen Anatomical Collection Method Collection Time Receive d Time (Source) Location / / Volume Laterality Blood (Blood, 08/01/2020 8:46 AM 08/01/19 9:15 Venous) GATHERING MACHINE FEEDER AM GATHERING MACHINE FEEDER Janusz AlexandraS. LAB BLOOD ADD-ON Performing Organization Address City/State/ZIP Code Phon e Number [facility] - [address] [place], [place] [address] [facility] [place] [place] [address] [facility] [address] (ABNORMAL) Protein, Total (07/24/2020 8:50 AM GATHERING MACHINE FEEDER) P athologist Signature Protein, 5.9 (L) 6.3 - 7.9 07/24/2020 DTL Total, S g/dL 9:46 AM GATHERING MACHINE FEEDER Specimen Anatomical Collection Method Collection Time Receive d Time (Source) Location / / Volume Laterality Blood (Blood, 07/24/2020 8:50 AM 07/24/19 9:14 Venous) GATHERING MACHINE FEEDER AM GATHERING MACHINE FEEDER Janusz ArringtonB.S. LAB BLOOD ADD-ON Performing Organization Address City/State/ZIP Code Phon e Number [facility] - 200 [place], [place] [address] [place] [address] [facility] 200 [facility] Albumin (07/24/2020 8:50 AM GATHERING MACHINE FEEDER) P athologist Signature Albumin, S 4.2 3.5 - 5.0 07/24/2020 DTL g/dL 9:46 AM GATHERING MACHINE FEEDER Specimen Anatomical Collection Method Collection Time Receive d Time (Source) Location / / Volume Laterality Blood (Blood, 07/24/2020 8:50 AM 07/24/19 9:14 Venous) GATHERING MACHINE FEEDER AM GATHERING MACHINE FEEDER Naseema Gangat M.B.B.S. LAB BLOOD ADD-ON Performing Organization Address City/State/ZIP Code Phon e Number [facility] - 200 [place], [place] [address] [place] [address] Glucose, Random (07/24/2020 8:50 AM GATHERING MACHINE FEEDER) athologist Signature Glucose, S 131 70 - 140 07/24/2020 DTL mg/dL 9:46 AM GATHERING MACHINE FEEDER Specimen Anatomical Collection Method Collection Time Receive d Time (Source) Location / / Volume Laterality Blood (Blood, 07/24/2020 8:50 AM 07/24/19 9:14 Venous) GATHERING MACHINE FEEDER AM GATHERING MACHINE FEEDER Naseema Gangat M.B.B.S. LAB BLOOD TROPONIN Performing Organization Address City/State/ZIP Code Phon e Number [facility] - 200 [place], [place] [address] [place] [address] Uric Acid (07/24/2020 8:50 AM GATHERING MACHINE FEEDER) P athologist Signature Uric Acid, S 5.5 2.7 - 6.1 07/24/2020 DTL mg/dL 9:46 AM GATHERING MACHINE FEEDER Specimen Anatomical Collection Method Collection Time Receive d Time (Source) Location / / Volume Laterality Blood (Blood, 07/24/2020 8:50 AM 07/24/19 9:14 Venous) GATHERING MACHINE FEEDER AM GATHERING MACHINE FEEDER Naseema Gangat M.B.B.S. LAB BLOOD ADD-ON Performing Organization Address City/State/ZIP Code Phon e Number [facility] - [address] [place], [place] [address] [place] [address] [place], [place] [id number] [place] [address] Creatinine with Estimated GFR (07/24/2020 8:50 AM GATHERING MACHINE FEEDER) athologist Signature Creatinine 0.95 0.59 - 07/24/2020 DTL 1.04 mg/dL 9:46 AM GATHERING MACHINE FEEDER eGFR-Non 69 >=60 07/24/2020 DTL Black/ mL/min/BSA 9:46 AM GATHERING MACHINE FEEDER Italian Comment: ----ADDITIONAL INFORMATION---- Estimated GFR calculated using the 2009 CKD_EPI creatinine equation. eGFR-Black/ 80 >=60 mL/min/BSA 2020 9:46 AM GATHERING MACHINE FEEDER DTL Comment: ----ADDITIONAL INFORMATION---- Estimated GFR calculated using the 2009 CKD_EPI creatinine equation. Specimen Anatomical Collection Method Collection Time Receive d Time (Source) Location / / Volume Laterality Blood (Blood, 07/24/2020 8:50 AM 07/24/19 9:14 Venous) GATHERING MACHINE FEEDER AM GATHERING MACHINE FEEDER Janusz ArringtonB.S. LAB BLOOD ADD-ON Performing Organization Address City/State/[facility] Code Phon e Number [facility] - [address] [place], [place] [address] [place] [address] [facility] [address] BUN (Blood Urea Nitrogen) (07/24/2020 8:50 AM GATHERING MACHINE FEEDER) athologist Signature BUN (Blood Urea 15 6 - 21 07/24/2020 DTL Nitrogen), S mg/dL 9:46 AM GATHERING MACHINE FEEDER Specimen Anatomical Collection Method Collection Time Receive d Time (Source) Location / / Volume Laterality Blood (Blood, 07/24/2020 8:50 AM 07/24/19 9:14 Venous) GATHERING MACHINE FEEDER AM GATHERING MACHINE FEEDER Janusz ArringtonB.S. LAB BLOOD ADD-ON Performing Organization Address City/State/ZIP Code Phon e Number [facility] - [address] [place], [place] [address] [place] [address] [facility] [address] Bilirubin, Total (07/24/2020 8:50 AM GATHERING MACHINE FEEDER) P athologist Signature Bilirubin, 0.7 <=1.2 mg/dL 07/24/2020 DTL Total, S 9:46 AM GATHERING MACHINE FEEDER Specimen Anatomical Collection Method Collection Time Receive d Time (Source) Location / / Volume Laterality Blood (Blood, 07/24/2020 8:50 AM 07/24/19 9:14 Venous) GATHERING MACHINE FEEDER AM GATHERING MACHINE FEEDER Janusz Dillon.B.B.S. LAB BLOOD ADD-ON Performing Organization Address City/State/ZIP Code Phon e Number [facility] - [id number] [place] [address] [address] [facility] (ABNORMAL) Calcium, Total (07/24/2020 8:50 AM GATHERING MACHINE FEEDER) athologist Signature Calcium, 8.5 (L) 8.6 - 10.0 07/24/2020 DTL Total, S mg/dL 9:58 AM GATHERING MACHINE FEEDER Specimen Anatomical Collection Method Collection Time Receive d Time (Source) Location / / Volume Laterality Blood (Blood, 07/24/2020 8:50 AM 07/24/19 9:14 Venous) GATHERING MACHINE FEEDER AM GATHERING MACHINE FEEDER Janusz Dillon.B.B.S. LAB BLOOD ADD-ON Performing Organization Address City/[facility]/ZIP Code Phon e Number [facility] - [phone] [place] [address] [address] [facility] (ABNORMAL) Chloride (07/24/2020 8:50 AM GATHERING MACHINE FEEDER) P athologist Signature Chloride, S 108 (H) 98 - 107 07/24/2020 DTL mmol/L 9:46 AM GATHERING MACHINE FEEDER Specimen Anatomical Collection Method Collection Time Receive d Time (Source) Location / / Volume Laterality Blood (Blood, 07/24/2020 8:50 AM 07/24/19 21 9:14 Venous) GATHERING MACHINE FEEDER AM GATHERING MACHINE FEEDER Janusz Dillon.B.B.S. LAB BLOOD ADD-ON Performing Organization Address City/State/ZIP Code Phon e Number [facility] - 200 [place], [place] [address] [place] [address] [facility] [address] [facility] Magnesium (07/24/2020 8:50 AM GATHERING MACHINE FEEDER) athologist Signature Magnesium, S 2.1 1.7 - 2.3 07/24/2020 DTL mg/dL 9:46 AM GATHERING MACHINE FEEDER Specimen Anatomical Collection Method Collection Time Receive d Time (Source) Location / / Volume Laterality Blood (Blood, 07/24/2020 8:50 AM 07/24/19 9:14 Venous) GATHERING MACHINE FEEDER AM GATHERING MACHINE FEEDER Naseema Gangat M.B.B.S. LAB BLOOD ADD-ON Performing Organization Address City/State/ZIP Code Phon e Number [facility] - 200 [place], [place] [address] [place] [phone] [place] [address] [address] [facility] Potassium (07/24/2020 8:50 AM GATHERING MACHINE FEEDER) athologist Signature Potassium, S 4.2 3.6 - 5.2 07/24/2020 DTL mmol/L 9:46 AM GATHERING MACHINE FEEDER Specimen Anatomical Collection Method Collection Time Receive d Time (Source) Location / / Volume Laterality Blood (Blood, 07/24/2020 8:50 AM 07/24/19 9:14 Venous) GATHERING MACHINE FEEDER AM GATHERING MACHINE FEEDER Naseema Gangat M.B.B.S. LAB BLOOD ADD-ON Performing Organization Address City/State/ZIP Code Phon e Number [facility] - 200 [place], [place] [address] [place] [address] Sodium (07/24/2020 8:50 AM GATHERING MACHINE FEEDER) athologist Signature Sodium, S 143 135 - 145 07/24/2020 9:46 DTL mmol/L AM GATHERING MACHINE FEEDER Specimen Anatomical Collection Method Collection Time Receive d Time (Source) Location / / Volume Laterality Blood (Blood, 07/24/2020 8:50 AM 07/24/19 9:14 Venous) GATHERING MACHINE FEEDER AM GATHERING MACHINE FEEDER Naseema Gangat M.B.B.S. LAB BLOOD ADD-ON Performing Organization Address City/[facility] Phon e Number [facility] - [address] Alkaline Phosphatase (07/24/2020 8:50 AM GATHERING MACHINE FEEDER) P athologist Signature Alkaline 36 35 - 104 07/24/2020 DTL Phosphatase, S U/L 9:46 AM GATHERING MACHINE FEEDER Specimen Anatomical Collection Method Collection Time Receive d Time (Source) Location / / Volume Laterality Blood (Blood, 07/24/2020 8:50 AM 07/24/19 21 9:14 Venous) GATHERING MACHINE FEEDER AM GATHERING MACHINE FEEDER Janusz AlexandraSZahraa LAB BLOOD ADD-ON Performing Organization Address City/[facility] Code Phon e Number [facility] - 200 [place], [place] [address] [place] [address] First [facility] AST (Aspartate Aminotransferase) (07/24/2020 8:50 AM GATHERING MACHINE FEEDER) Patholo gist Method Time Signature Aspartate 27 8 - 43 07/24/2020 DTL Aminotransferase U/L 9:46 AM GATHERING MACHINE FEEDER (AST), S Specimen Anatomical Collection Method Collection Time Receive d Time (Source) Location / / Volume Laterality Blood (Blood, 07/24/2020 8:50 AM 07/24/19 21 9:14 Venous) GATHERING MACHINE FEEDER AM GATHERING MACHINE FEEDER Janusz AlexandraSZahraa LAB BLOOD ADD-ON Performing Organization Address City/[facility] Phon e Number [facility] - 200 [place] [address] [address] [facility] ALT (Alanine Aminotransferase) (07/24/2020 8:50 AM GATHERING MACHINE FEEDER) Patholo gist Method Time Signature Alanine 9 7 - 45 07/24/2020 DTL Aminotransferase U/L 9:46 AM GATHERING MACHINE FEEDER (ALT), S Specimen Anatomical Collection Method Collection Time Receive d Time (Source) Location / / Volume Laterality Blood (Blood, 07/24/2020 8:50 AM 07/24/19 21 9:14 Venous) GATHERING MACHINE FEEDER AM GATHERING MACHINE FEEDER Janusz AlexandraSZahraa LAB BLOOD ADD-ON Performing Organization Address City/State/[facility] Code Phon e Number [facility] - [address] (ABNORMAL) CBC with Differential, Blood (07/24/2020 8:50 AM GATHERING MACHINE FEEDER) [facility] Method Time Signature Hemoglobin 5.9 (CL) 11.6 - 07/24/2020 DTL 15.0 g/dL 9:58 AM GATHERING MACHINE FEEDER Hematocrit 18.9 (L) 35.5 - 07/24/2020 DTL 44.9 % 9:58 AM GATHERING MACHINE FEEDER Erythrocytes 2.10 (L) 3.92 - 07/24/2020 DTL 5.13 9:58 AM GATHERING MACHINE FEEDER x10(12)/L MCV 90.0 78.2 - 07/24/2020 DTL 97.9 fL 9:58 AM GATHERING MACHINE FEEDER RBC Distrib Width 24.4 (H) 12.2 - 07/24/2020 DTL 16.1 % 9:58 AM GATHERING MACHINE FEEDER Platelet Count 70 (L) 157 - 371 07/24/2020 DTL x10(9)/L 9:58 AM GATHERING MACHINE FEEDER Leukocytes 2.4 (L) 3.4 - 9.6 07/24/2020 DTL x10(9)/L 10:33 AM GATHERING MACHINE FEEDER Comment: Results confirmed by smear. Neutrophils SeeComment 1.56 - 6.45 x10(9)/L 07/24/2020 10:33 AM GATHERING MACHINE FEEDER DTL Comment: Auto-diff results not valid. Se e manual differential. Specimen Anatomical Collection Method Collection Time Receive d Time (Source) Location / / Volume Laterality Blood (Blood, 07/24/2020 8:50 AM 07/24/19 21 9:22 Venous) GATHERING MACHINE FEEDER AM GATHERING MACHINE FEEDER Janusz AlexandraSZahraa LAB BLOOD ADD-ON Performing Organization Address City/State/[facility] Code Phon e Number [facility] - [address] Protein, Total (07/17/2020 9:41 AM GATHERING MACHINE FEEDER) athologist Signature Protein, Total, 6.4 6.3 - 7.9 07/17/2020 DTL S g/dL 11:15 AM GATHERING MACHINE FEEDER Specimen Anatomical Collection Method Collection Time Receive d Time (Source) Location / / Volume Laterality Blood (Blood, 07/17/2020 9:41 AM 07/17/19 Venous) GATHERING MACHINE FEEDER 10:05 AM GATHERING MACHINE FEEDER Janusz Govea M.B.B.S. LAB BLOOD ADD-ON Performing Organization Address City/State/ZIP Code Phon e Number [facility] - [address] [place], [place] [address] [place] [address] [facility] [address] Albumin (07/17/2020 9:41 AM GATHERING MACHINE FEEDER) athologist Signature Albumin, S 4.5 3.5 - 5.0 07/17/2020 DTL g/dL 11:15 AM GATHERING MACHINE FEEDER Specimen Anatomical Collection Method Collection Time Receive d Time (Source) Location / / Volume Laterality Blood (Blood, 07/17/2020 9:41 AM 07/17/19 Venous) GATHERING MACHINE FEEDER 10:05 AM GATHERING MACHINE FEEDER Janusz Dillon.B.B.S. LAB BLOOD ADD-ON Performing Organization Address City/State/ZIP Code Phon e Number [facility] - [address] [place], [place] [address] [place] [address] [facility] [address] Glucose, Random (07/17/2020 9:41 AM GATHERING MACHINE FEEDER) athologist Signature Glucose, S 137 70 - 140 07/17/2020 DTL mg/dL 11:15 AM GATHERING MACHINE FEEDER Specimen Anatomical Collection Method Collection Time Receive d Time (Source) Location / / Volume Laterality Blood (Blood, 07/17/2020 9:41 AM 07/17/19 Venous) GATHERING MACHINE FEEDER 10:05 AM GATHERING MACHINE FEEDER Janusz Govea M.B.B.S. LAB BLOOD TROPONIN Performing Organization Address City/State/ZIP Code Phon e Number [facility] - [address] [place], [place] [address] [facility] [place] [address] [facility] [address] (ABNORMAL) Uric Acid (07/17/2020 9:41 AM GATHERING MACHINE FEEDER) athologist Signature Uric Acid, S 6.6 (H) 2.7 - 6.1 07/17/2020 DTL mg/dL 11:15 AM GATHERING MACHINE FEEDER Specimen Anatomical Collection Method Collection Time Receive d Time (Source) Location / / Volume Laterality Blood (Blood, 07/17/2020 9:41 AM 07/17/19 Venous) GATHERING MACHINE FEEDER 10:05 AM GATHERING MACHINE FEEDER Janusz AlexandraSZahraa LAB BLOOD ADD-ON Performing Organization Address City/State/[facility] Phon e Number [facility] - [address] [place], [place] [address] [facility] [address] (ABNORMAL) Creatinine with Estimated GFR (07/17/2020 9:41 AM GATHERING MACHINE FEEDER) Analysis Performed At [facility] Signature Creatinine 1.10 (H) 0.59 - 07/17/2020 DTL 1.04 mg/dL 11:15 AM GATHERING MACHINE FEEDER eGFR-Non 58 (L) >=60 07/17/2020 DTL Black/ mL/min/BSA 11:15 AM GATHERING MACHINE FEEDER Italian Comment: ----ADDITIONAL INFORMATION---- Estimated GFR calculated using the 2009 CKD_EPI creatinine equation. eGFR-Black/ 67 >=60 mL/min/BSA 2020 11:15 AM GATHERING MACHINE FEEDER DTL Comment: ----ADDITIONAL INFORMATION---- Estimated GFR calculated using the 2009 CKD_EPI creatinine equation. Specimen Anatomical Collection Method Collection Time Receive d Time (Source) Location / / Volume Laterality Blood (Blood, 07/17/2020 9:41 AM 07/17/19 Venous) GATHERING MACHINE FEEDER 10:05 AM GATHERING MACHINE FEEDER Janusz AlexandraS. LAB BLOOD ADD-ON Performing Organization Address City/State/[facility] Phon e Number [facility] - [address] [place], [place] [address] [facility] [place] [address] Laboratories[address] (ABNORMAL) BUN (Blood Urea Nitrogen) (07/17/2020 9:41 AM GATHERING MACHINE FEEDER) athologist Signature BUN (Blood Urea 25 (H) 6 - 21 07/17/2020 DTL Nitrogen), S mg/dL 11:15 AM GATHERING MACHINE FEEDER Specimen Anatomical Collection Method Collection Time Receive d Time (Source) Location / / Volume Laterality Blood (Blood, 07/17/2020 9:41 AM 07/17/19 Venous) GATHERING MACHINE FEEDER 10:05 AM GATHERING MACHINE FEEDER Nasjonathan Govea M.B.B.S. LAB BLOOD ADD-ON Performing Organization Address City/State/[facility] Code Phon e Number [facility] - [address] [place], [place] [address] [place] [address] Bilirubin, Total (07/17/2020 9:41 AM GATHERING MACHINE FEEDER) athologist Signature Bilirubin, 0.8 <=1.2 mg/dL 07/17/2020 DTL Total, S 11:15 AM GATHERING MACHINE FEEDER Specimen Anatomical Collection Method Collection Time Receive d Time (Source) Location / / Volume Laterality Blood (Blood, 07/17/2020 9:41 AM 07/17/19 Venous) GATHERING MACHINE FEEDER 10:05 AM GATHERING MACHINE FEEDER Nasjonathan Mcdonaldgat M.B.B.S. LAB BLOOD ADD-ON Performing Organization Address City/State/ZIP Code Phon e Number [facility] - [address] [place], [place] [address] [place] [id number] [place] [address] Calcium, Total (07/17/2020 9:41 AM GATHERING MACHINE FEEDER) athologist Signature Calcium, Total, 8.7 8.6 - 10.0 07/17/2020 DTL S mg/dL 11:15 AM GATHERING MACHINE FEEDER Specimen Anatomical Collection Method Collection Time Receive d Time (Source) Location / / Volume Laterality Blood (Blood, 07/17/2020 9:41 AM 07/17/19 Venous) GATHERING MACHINE FEEDER 10:05 AM GATHERING MACHINE FEEDER Janusz Mcdonaldgat M.B.B.S. LAB BLOOD ADD-ON Performing Organization Address City/State/ZIP Code Phon e Number [facility] - [address] [place], [place] [address] [place] [address] [place], [place] [id number] [place] [address] Street Chloride (07/17/2020 9:41 AM GATHERING MACHINE FEEDER) athologist Signature Chloride, S 104 98 - 107 07/17/2020 DTL mmol/L 11:15 AM GATHERING MACHINE FEEDER Specimen Anatomical Collection Method Collection Time Receive d Time (Source) Location / / Volume Laterality Blood (Blood, 07/17/2020 9:41 AM 07/17/19 Venous) GATHERING MACHINE FEEDER 10:05 AM GATHERING MACHINE FEEDER Nasbaltazarma Gangat M.B.B.S. LAB BLOOD ADD-ON Performing Organization Address City/State/ZIP Code Phon e Number [facility] - [id number] [place] [address] Magnesium (07/17/2020 9:41 AM GATHERING MACHINE FEEDER) athologist Signature Magnesium, S 2.3 1.7 - 2.3 07/17/2020 DTL mg/dL 11:15 AM GATHERING MACHINE FEEDER Specimen Anatomical Collection Method Collection Time Receive d Time (Source) Location / / Volume Laterality Blood (Blood, 07/17/2020 9:41 AM 07/17/19 Venous) GATHERING MACHINE FEEDER 10:05 AM GATHERING MACHINE FEEDER Nasbaltazarma Gangat M.B.B.S. LAB BLOOD ADD-ON Performing Organization Address City/[facility]/ZIP Code Phon e Number [facility] - [address] [address] [facility] [address] Potassium (07/17/2020 9:41 AM GATHERING MACHINE FEEDER) athologist Signature Potassium, S 4.5 3.6 - 5.2 07/17/2020 DTL mmol/L 11:15 AM GATHERING MACHINE FEEDER Specimen Anatomical Collection Method Collection Time Receive d Time (Source) Location / / Volume Laterality Blood (Blood, 07/17/2020 9:41 AM 07/17/19 Venous) GATHERING MACHINE FEEDER 10:05 AM GATHERING MACHINE FEEDER Naseema Gangat M.B.B.S. LAB BLOOD ADD-ON Performing Organization Address City/State/ZIP Code Phon e Number [facility] - [address] [place], [place] [address] [place] [address] [facility] [address] Sodium (07/17/2020 9:41 AM GATHERING MACHINE FEEDER) P athologist Signature Sodium, S 142 135 - 145 07/17/2020 DTL mmol/L 11:15 AM GATHERING MACHINE FEEDER Specimen Anatomical Collection Method Collection Time Receive d Time (Source) Location / / Volume Laterality Blood (Blood, 07/17/2020 9:41 AM 07/17/19 Venous) GATHERING MACHINE FEEDER 10:05 AM GATHERING MACHINE FEEDER Janusz Govea M.B.B.S. LAB BLOOD ADD-ON Performing Organization Address City/State/ZIP Code Phon e Number [facility] - [address] [place], [place] [address] [place] [address] [facility] [address] [facility] Alkaline Phosphatase (07/17/2020 9:41 AM GATHERING MACHINE FEEDER) P athologist Signature Alkaline 43 35 - 104 07/17/2020 DTL Phosphatase, S U/L 11:15 AM GATHERING MACHINE FEEDER Specimen Anatomical Collection Method Collection Time Receive d Time (Source) Location / / Volume Laterality Blood (Blood, 07/17/2020 9:41 AM 07/17/19 Venous) GATHERING MACHINE FEEDER 10:05 AM GATHERING MACHINE FEEDER Janusz Dillon.B.B.S. LAB BLOOD ADD-ON Performing Organization Address City/State/ZIP Code Phon e Number [facility] - [address] [place], [place] [address] [place] [address] [facility] [address] AST (Aspartate Aminotransferase) (07/17/2020 9:41 AM GATHERING MACHINE FEEDER) Patholo gist Method Time Signature Aspartate 20 8 - 43 07/17/2020 DTL Aminotransferase U/L 11:15 AM GATHERING MACHINE FEEDER (AST), S Specimen Anatomical Collection Method Collection Time Receive d Time (Source) Location / / Volume Laterality Blood (Blood, 07/17/2020 9:41 AM 07/17/19 Venous) GATHERING MACHINE FEEDER 10:05 AM GATHERING MACHINE FEEDER Janusz Govea M.B.B.S. LAB BLOOD ADD-ON Performing Organization Address City/State/ZIP Code Phon e Number [facility] - [address] [facility] [place] [address] [facility] [place] [address] Laboratories-[address] ALT (Alanine Aminotransferase) (07/17/2020 9:41 AM GATHERING MACHINE FEEDER) Patholo gist Method Time Signature Alanine 8 7 - 45 07/17/2020 DTL Aminotransferase U/L 11:15 AM GATHERING MACHINE FEEDER (ALT), S Specimen Anatomical Collection Method Collection Time Receive d Time (Source) Location / / Volume Laterality Blood (Blood, 07/17/2020 9:41 AM 07/17/19 21 Venous) GATHERING MACHINE FEEDER 10:05 AM GATHERING MACHINE FEEDER Janusz Ardon LAB BLOOD ADD-ON Performing Organization Address City/State/ZIP Code Phon e Number [facility] - [address] [place] [address] [address] (ABNORMAL) CBC with Differential, Blood (07/17/2020 9:41 AM GATHERING MACHINE FEEDER) P athologist Signature Hemoglobin 5.1 (CL) 11.6 - 15.0 07/17/2020 DTL g/dL 10:58 AM GATHERING MACHINE FEEDER Comment: Rechecked Hematocrit 16.8 (L) 35.5 - 44.9 % 07/17/2020 10:58 AM GATHERING MACHINE FEEDER D TL Erythrocytes 1.92 (L) 3.92 - 5.13 x10(12)/L 07/17/2020 10:5 8 AM GATHERING MACHINE FEEDER DTL MCV 87.5 78.2 - 97.9 fL 07/17/2020 10:58 AM GATHERING MACHINE FEEDER D TL RBC Distrib Width 26.6 (H) 12.2 - 16.1 % 07/17/2020 10:58 A M GATHERING MACHINE FEEDER DTL Platelet Count 77 (L) 157 - 371 x10(9)/L 07/17/2020 10:58 AM GATHERING MACHINE FEEDER DTL Leukocytes 2.6 (L) 3.4 - 9.6 x10(9)/L 07/17/2020 11:39 AM GATHERING MACHINE FEEDER DTL Comment: Results confirmed by smear. Neutrophils SeeComment 1.56 - 6.45 x10(9)/L 07/17/2020 11:39 AM GATHERING MACHINE FEEDER DTL Comment: Auto-diff results not valid. Se e manual differential. Specimen Anatomical Collection Method Collection Time Receive d Time (Source) Location / / Volume Laterality Blood (Blood, 07/17/2020 9:41 AM 07/17/19 21 Venous) GATHERING MACHINE FEEDER 10:06 AM GATHERING MACHINE FEEDER Janusz Dillon.B.B.S. LAB BLOOD ADD-ON Performing Organization Address City/[facility]/ZIP Code Phon e Number [facility] - [address] [place], [place] [address] [facility] [address] (ABNORMAL) Protein, Total (07/10/2020 6:47 AM GATHERING MACHINE FEEDER) athologist Signature Protein, 6.2 (L) 6.3 - 7.9 07/10/2020 DTL Total, S g/dL 7:51 AM GATHERING MACHINE FEEDER Specimen Anatomical Collection Method Collection Time Receive d Time (Source) Location / / Volume Laterality Blood (Blood, 07/10/2020 6:47 AM 07/10/20 7:10 Venous) GATHERING MACHINE FEEDER AM GATHERING MACHINE FEEDER Janusz Dillon.B.B.S. LAB BLOOD ADD-ON Performing Organization Address City/[facility]/ZIP Code Phon e Number [facility] - [address] [place], [place] [address] [place] [address] [place], [place] [id number] [place] [address] Albumin (07/10/2020 6:47 AM GATHERING MACHINE FEEDER) athologist Signature Albumin, S 4.4 3.5 - 5.0 07/10/2020 DTL g/dL 7:51 AM GATHERING MACHINE FEEDER Specimen Anatomical Collection Method Collection Time Receive d Time (Source) Location / / Volume Laterality Blood (Blood, 07/10/2020 6:47 AM 07/10/20 7:10 Venous) GATHERING MACHINE FEEDER AM GATHERING MACHINE FEEDER Janusz Dillon.B.B.S. LAB BLOOD ADD-ON Performing Organization Address City/[facility]/ZIP Code Phon e Number [facility] - [address] [place], [place] [address] [facility] [place], [place] [id number] [place] [address] Glucose, Random (07/10/2020 6:47 AM GATHERING MACHINE FEEDER) athologist Signature Glucose, S 135 70 - 140 07/10/2020 DTL mg/dL 7:51 AM GATHERING MACHINE FEEDER Specimen Anatomical Collection Method Collection Time Receive d Time (Source) Location / / Volume Laterality Blood (Blood, 07/10/2020 6:47 AM 07/10/20 20 7:10 Venous) GATHERING MACHINE FEEDER AM GATHERING MACHINE FEEDER Janusz Dillon.B.B.S. LAB BLOOD TROPONIN Performing Organization Address City/[facility]/ZIP Code Phon e Number [facility] - [address] [place] [address] [place] [address] Laboratories-[address] Uric Acid (07/10/2020 6:47 AM GATHERING MACHINE FEEDER) athologist Signature Uric Acid, S 5.0 2.7 - 6.1 07/10/2020 DTL mg/dL 7:51 AM GATHERING MACHINE FEEDER Specimen Anatomical Collection Method Collection Time Receive d Time (Source) Location / / Volume Laterality Blood (Blood, 07/10/2020 6:47 AM 07/10/20 20 7:10 Venous) GATHERING MACHINE FEEDER AM GATHERING MACHINE FEEDER Janusz Dillon.B.B.S. LAB BLOOD ADD-ON Performing Organization Address City/[facility] Phon e Number [facility] - [address] [address] [address] (ABNORMAL) Creatinine with Estimated GFR (07/10/2020 6:47 AM GATHERING MACHINE FEEDER) [facility] Signature Creatinine 1.08 (H) 0.59 - 07/10/2020 DTL 1.04 mg/dL 7:51 AM GATHERING MACHINE FEEDER eGFR-Non 59 (L) >=60 07/10/2020 DTL Black/ mL/min/BSA 7:51 AM GATHERING MACHINE FEEDER Italian Comment: ----ADDITIONAL INFORMATION---- Estimated GFR calculated using the 2009 CKD_EPI creatinine equation. eGFR-Black/ 68 >=60 mL/min/BSA 2019 7:51 AM GATHERING MACHINE FEEDER DTL Comment: ----ADDITIONAL INFORMATION---- Estimated GFR calculated using the 2009 CKD_EPI creatinine equation. Specimen Anatomical Collection Method Collection Time Receive d Time (Source) Location / / Volume Laterality Blood (Blood, 07/10/2020 6:47 AM 07/10/20 20 7:10 Venous) GATHERING MACHINE FEEDER AM GATHERING MACHINE FEEDER Janusz Higgins.B.S. LAB BLOOD ADD-ON Performing Organization Address City/[facility] Phon e Number [facility] - [address] [place], [place] [address] [place] [address] (ABNORMAL) BUN (Blood Urea Nitrogen) (07/10/2020 6:47 AM GATHERING MACHINE FEEDER) athologist Signature BUN (Blood Urea 24 (H) 6 - 21 07/10/2020 DTL Nitrogen), S mg/dL 7:51 AM GATHERING MACHINE FEEDER Specimen Anatomical Collection Method Collection Time Receive d Time (Source) Location / / Volume Laterality Blood (Blood, 07/10/2020 6:47 AM 07/10/20 7:10 Venous) GATHERING MACHINE FEEDER AM GATHERING MACHINE FEEDER Janusz Dillon.Cain.B.S. LAB BLOOD ADD-ON Performing Organization Address City/[facility] Code Phon e Number [facility] - [address] Bilirubin, Total (07/10/2020 6:47 AM GATHERING MACHINE FEEDER) athologist Signature Bilirubin, 0.8 <=1.2 mg/dL 07/10/2020 DT Total, S 7:51 AM GATHERING MACHINE FEEDER Specimen Anatomical Collection Method Collection Time Receive d Time (Source) Location / / Volume Laterality Blood (Blood, 07/10/2020 6:47 AM 07/10/20 20 7:10 Venous) GATHERING MACHINE FEEDER AM GATHERING MACHINE FEEDER Janusz Dillon.B.B.S. LAB BLOOD ADD-ON Performing Organization Address City/State/ZIP [facility] Phon e Number [facility] - [address] Calcium, Total (07/10/2020 6:47 AM GATHERING MACHINE FEEDER) athologist Signature Calcium, Total, 8.7 8.6 - 10.0 07/10/2020 DTL S mg/dL 7:51 AM GATHERING MACHINE FEEDER Specimen Anatomical Collection Method Collection Time Receive d Time (Source) Location / / Volume Laterality Blood (Blood, 07/10/2020 6:47 AM 07/10/20 7:10 Venous) GATHERING MACHINE FEEDER AM GATHERING MACHINE FEEDER Janusz Govea M.B.B.S. LAB BLOOD ADD-ON Performing Organization Address City/State/ZIP Code Phon e Number [facility] - [address] [place], [place] [address] [facility] [place] [address] [facility] [address] Chloride (07/10/2020 6:47 AM GATHERING MACHINE FEEDER) P athologist Signature Chloride, S 105 98 - 107 07/10/2020 DTL mmol/L 7:51 AM GATHERING MACHINE FEEDER Specimen Anatomical Collection Method Collection Time Receive d Time (Source) Location / / Volume Laterality Blood (Blood, 07/10/2020 6:47 AM 07/10/20 7:10 Venous) GATHERING MACHINE FEEDER AM GATHERING MACHINE FEEDER Nasjonathan Mcdonaldgat M.B.B.S. LAB BLOOD ADD-ON Performing Organization Address City/State/ZIP Code Phon e Number [facility] - [address] [place], [place] [address] [facility] [address] [facility] [address] Magnesium (07/10/2020 6:47 AM GATHERING MACHINE FEEDER) P athologist Signature Magnesium, S 2.2 1.7 - 2.3 07/10/2020 DTL mg/dL 7:51 AM GATHERING MACHINE FEEDER Specimen Anatomical Collection Method Collection Time Receive d Time (Source) Location / / Volume Laterality Blood (Blood, 07/10/2020 6:47 AM 07/10/20 20 7:10 Venous) GATHERING MACHINE FEEDER AM GATHERING MACHINE FEEDER Reemama Harrygat M.B.B.S. LAB BLOOD ADD-ON Performing Organization Address City/State/ZIP Code Phon e Number [facility] - [address] [place], [place] [address] [place] [address] [facility] [address] Potassium (07/10/2020 6:47 AM GATHERING MACHINE FEEDER) P athologist Signature Potassium, S 4.3 3.6 - 5.2 07/10/2020 DTL mmol/L 7:51 AM GATHERING MACHINE FEEDER Specimen Anatomical Collection Method Collection Time Receive d Time (Source) Location / / Volume Laterality Blood (Blood, 07/10/2020 6:47 AM 07/10/20 7:10 Venous) GATHERING MACHINE FEEDER AM GATHERING MACHINE FEEDER Nasjonathan Mcdonaldgat M.B.B.S. LAB BLOOD ADD-ON Performing Organization Address City/[facility]/ZIP [facility] Phon e Number [facility] - [address] [place] [address] [address] [place] [address] [facility] [address] Sodium (07/10/2020 6:47 AM GATHERING MACHINE FEEDER) P athologist Signature Sodium, S 141 135 - 145 07/10/2020 7:51 DTL mmol/L AM GATHERING MACHINE FEEDER Specimen Anatomical Collection Method Collection Time Receive d Time (Source) Location / / Volume Laterality Blood (Blood, 07/10/2020 6:47 AM 07/10/20 7:10 Venous) GATHERING MACHINE FEEDER AM GATHERING MACHINE FEEDER Nasbaltazarma Gangat M.B.B.S. LAB BLOOD ADD-ON Performing Organization Address City/[facility] Phon e Number [facility] - [address] [place] [address] [facility] [address] Alkaline Phosphatase (07/10/2020 6:47 AM GATHERING MACHINE FEEDER) P athologist Signature Alkaline 49 35 - 104 07/10/2020 DTL Phosphatase, S U/L 7:51 AM GATHERING MACHINE FEEDER Specimen Anatomical Collection Method Collection Time Receive d Time (Source) Location / / Volume Laterality Blood (Blood, 07/10/2020 6:47 AM 07/10/20 20 7:10 Venous) GATHERING MACHINE FEEDER AM GATHERING MACHINE FEEDER Nasbaltazarma Gangat M.B.B.S. LAB BLOOD ADD-ON Performing Organization Address City/[facility]/ZIP [facility] Phon e Number [facility] - [address] [place] [address] AST (Aspartate Aminotransferase) (07/10/2020 6:47 AM GATHERING MACHINE FEEDER) Patholo gist Method Time Signature Aspartate 30 8 - 43 07/10/2020 DTL Aminotransferase U/L 7:51 AM GATHERING MACHINE FEEDER (AST), S Specimen Anatomical Collection Method Collection Time Receive d Time (Source) Location / / Volume Laterality Blood (Blood, 07/10/2020 6:47 AM 07/10/20 20 7:10 Venous) GATHERING MACHINE FEEDER AM GATHERING MACHINE FEEDER Janusz Dillon.B.B.S. LAB BLOOD ADD-ON Performing Organization Address [facility] Phon e Number [facility] - [address] [place], [place] [address] [facility] [place] [address] [facility]-[address] ALT (Alanine Aminotransferase) (07/10/2020 6:47 AM GATHERING MACHINE FEEDER) [facility] Method Time Signature Alanine 12 7 - 45 07/10/2020 DTL Aminotransferase U/L 7:51 AM GATHERING MACHINE FEEDER (ALT), S Specimen Anatomical Collection Method Collection Time Receive d Time (Source) Location / / Volume Laterality Blood (Blood, 07/10/2020 6:47 AM 07/10/20 20 7:10 Venous) GATHERING MACHINE FEEDER AM GATHERING MACHINE FEEDER Janusz Dillon.Cain.B.S. LAB BLOOD ADD-ON Performing Organization Address [facility] Phon e Number [facility] - [address] [place], [place] [address] [place] [address] (ABNORMAL) CBC with Differential, Blood (07/10/2020 6:47 AM GATHERING MACHINE FEEDER) [facility] Method Time Signature Hemoglobin 6.8 (L) 11.6 - 07/10/2020 DTL 15.0 g/dL 7:22 AM GATHERING MACHINE FEEDER Hematocrit 22.1 (L) 35.5 - 07/10/2020 DTL 44.9 % 7:22 AM GATHERING MACHINE FEEDER Erythrocytes 2.51 (L) 3.92 - 07/10/2020 DTL 5.13 7:22 AM GATHERING MACHINE FEEDER x10(12)/L MCV 88.0 78.2 - 07/10/2020 DTL 97.9 fL 7:22 AM GATHERING MACHINE FEEDER RBC Distrib 25.8 (H) 12.2 - 07/10/2020 DTL Width 16.1 % 7:22 AM GATHERING MACHINE FEEDER Platelet Count 119 (L) 157 - 371 07/10/2020 DTL x10(9)/L 7:22 AM GATHERING MACHINE FEEDER Leukocytes 3.6 3.4 - 9.6 07/10/2020 DTL x10(9)/L 8:05 AM GATHERING MACHINE FEEDER Neutrophils SeeComment 1.56 - 07/10/2020 DTL 6.45 8:05 AM GATHERING MACHINE FEEDER x10(9)/L Comment: Auto-diff results not valid. Se e manual differential. Specimen Anatomical Collection Method Collection Time Receive d Time (Source) Location / / Volume Laterality Blood (Blood, 07/10/2020 6:47 AM 07/10/20 7:12 Venous) GATHERING MACHINE FEEDER AM GATHERING MACHINE FEEDER Janusz Govea M.B.B.S. LAB BLOOD ADD-ON Performing Organization Address City/[facility]/ZIP Code Phon e Number [facility] - [address] [place] [address] [facility] [place], [place] [id number] [place] [address] Test, Qualitative, Urine (07/03/2020 8:43 AM GATHERING MACHINE FEEDER) athologist Signature Negative 07/03/2020 TUNDE Test, U 8:56 AM GATHERING MACHINE FEEDER Specimen Anatomical Collection Method Collection Time Receive d Time (Source) Location / / Volume Laterality Urine (Urine, 07/03/2020 8:43 AM 07/03/20 8:43 Clean Catch) GATHERING MACHINE FEEDER AM GATHERING MACHINE FEEDER Janusz Govea M.B.B.S. LAB URINE ORDERABLES Performing Organization Address [facility] Phon e Number [facility] - [address] [place], [place] [address] [facility] [place] [address] Protein, Total (07/03/2020 7:46 AM GATHERING MACHINE FEEDER) P athologist Signature Protein, Total, 6.3 6.3 - 7.9 07/03/2020 DTL S g/dL 9:00 AM GATHERING MACHINE FEEDER Specimen Anatomical Collection Method Collection Time Receive d Time (Source) Location / / Volume Laterality Blood (Blood, 07/03/2020 7:46 AM 07/03/20 8:15 Venous) GATHERING MACHINE FEEDER AM GATHERING MACHINE FEEDER Janusz Govea M.B.B.S. LAB BLOOD ADD-ON Performing Organization Address City/[facility] Phon e Number [facility] - [address] [address] [facility] 200 [facility] Albumin (07/03/2020 7:46 AM GATHERING MACHINE FEEDER) athologist Signature Albumin, S 4.4 3.5 - 5.0 07/03/2020 DTL g/dL 9:00 AM GATHERING MACHINE FEEDER Specimen Anatomical Collection Method Collection Time Receive d Time (Source) Location / / Volume Laterality Blood (Blood, 07/03/2020 7:46 AM 07/03/20 8:15 Venous) GATHERING MACHINE FEEDER AM GATHERING MACHINE FEEDER Janusz Mcdonaldgat M.B.B.S. LAB BLOOD ADD-ON Performing Organization Address City/State/ZIP Code Phon e Number [facility] - [id number] [place] [address] Glucose, Random (07/03/2020 7:46 AM GATHERING MACHINE FEEDER) athologist Signature Glucose, S 133 70 - 140 07/03/2020 DTL mg/dL 9:00 AM GATHERING MACHINE FEEDER Specimen Anatomical Collection Method Collection Time Receive d Time (Source) Location / / Volume Laterality Blood (Blood, 07/03/2020 7:46 AM 07/03/20 8:15 Venous) GATHERING MACHINE FEEDER AM GATHERING MACHINE FEEDER Janusz Govea M.B.B.S. LAB BLOOD TROPONIN Performing Organization Address City/[facility]/ZIP Code Phon e Number [facility] - [id number] [place] [address] Uric Acid (07/03/2020 7:46 AM GATHERING MACHINE FEEDER) athologist Signature Uric Acid, S 4.2 2.7 - 6.1 07/03/2020 DTL mg/dL 9:00 AM GATHERING MACHINE FEEDER Specimen Anatomical Collection Method Collection Time Receive d Time (Source) Location / / Volume Laterality Blood (Blood, 07/03/2020 7:46 AM 07/03/20 8:15 Venous) GATHERING MACHINE FEEDER AM GATHERING MACHINE FEEDER Nasbaltazarma Gangat M.B.B.S. LAB BLOOD ADD-ON Performing Organization Address City/State/ZIP Code Phon e Number [facility] - [address] [place], [place] [address] [place] [address] [facility] [address] [facility] Creatinine with Estimated GFR (07/03/2020 7:46 AM GATHERING MACHINE FEEDER) athologist Signature Creatinine 1.02 0.59 - 07/03/2020 DTL 1.04 mg/dL 9:00 AM GATHERING MACHINE FEEDER eGFR-Non 63 >=60 07/03/2020 DTL Black/ mL/min/BSA 9:00 AM GATHERING MACHINE FEEDER Italian Comment: ----ADDITIONAL INFORMATION---- Estimated GFR calculated using the 2009 CKD_EPI creatinine equation. eGFR-Black/ 73 >=60 mL/min/BSA 2019 9:00 AM GATHERING MACHINE FEEDER DTL Comment: ----ADDITIONAL INFORMATION---- Estimated GFR calculated using the 2009 CKD_EPI creatinine equation. Specimen Anatomical Collection Method Collection Time Receive d Time (Source) Location / / Volume Laterality Blood (Blood, 07/03/2020 7:46 AM 07/03/20 8:15 Venous) GATHERING MACHINE FEEDER AM GATHERING MACHINE FEEDER Janusz HayesB.B.S. LAB BLOOD ADD-ON Performing Organization Address City/State/ZIP Code Phon e Number [facility] - [address] [address] [facility] [address] BUN (Blood Urea Nitrogen) (07/03/2020 7:46 AM GATHERING MACHINE FEEDER) athologist Signature BUN (Blood Urea 20 6 - 21 07/03/2020 DTL Nitrogen), S mg/dL 9:00 AM GATHERING MACHINE FEEDER Specimen Anatomical Collection Method Collection Time Receive d Time (Source) Location / / Volume Laterality Blood (Blood, 07/03/2020 7:46 AM 07/03/20 8:15 Venous) GATHERING MACHINE FEEDER AM GATHERING MACHINE FEEDER Janusz Govea M.B.B.S. LAB BLOOD ADD-ON Performing Organization Address City/State/ZIP Code Phon e Number [facility] - [address] [place], [place] [address] [place] [address] [facility] [address] Bilirubin, Total (07/03/2020 7:46 AM GATHERING MACHINE FEEDER) athologist Signature Bilirubin, 0.6 <=1.2 mg/dL 07/03/2020 DTL Total, S 9:00 AM GATHERING MACHINE FEEDER Specimen Anatomical Collection Method Collection Time Receive d Time (Source) Location / / Volume Laterality Blood (Blood, 07/03/2020 7:46 AM 07/03/20 8:15 Venous) GATHERING MACHINE FEEDER AM GATHERING MACHINE FEEDER Nasjonathan Mcdonaldgat M.B.B.S. LAB BLOOD ADD-ON Performing Organization Address City/State/[facility] Phon e Number [facility] - [address] Calcium, Total (07/03/2020 7:46 AM GATHERING MACHINE FEEDER) athologist Signature Calcium, Total, 8.6 8.6 - 10.0 07/03/2020 DTL S mg/dL 9:00 AM GATHERING MACHINE FEEDER Specimen Anatomical Collection Method Collection Time Receive d Time (Source) Location / / Volume Laterality Blood (Blood, 07/03/2020 7:46 AM 07/03/20 8:15 Venous) GATHERING MACHINE FEEDER AM GATHERING MACHINE FEEDER Janusz Govea M.B.B.S. LAB BLOOD ADD-ON Performing Organization Address City/[facility] Phon e Number [facility] - [address] (ABNORMAL) Chloride (07/03/2020 7:46 AM GATHERING MACHINE FEEDER) athologist Signature Chloride, S 109 (H) 98 - 107 07/03/2020 DTL mmol/L 9:00 AM GATHERING MACHINE FEEDER Specimen Anatomical Collection Method Collection Time Receive d Time (Source) Location / / Volume Laterality Blood (Blood, 07/03/2020 7:46 AM 07/03/20 8:15 Venous) GATHERING MACHINE FEEDER AM GATHERING MACHINE FEEDER Naseewilman Gangat M.B.B.S. LAB BLOOD ADD-ON Performing Organization Address City/State/ZIP [facility] Phon e Number [facility] - [address] Magnesium (07/03/2020 7:46 AM GATHERING MACHINE FEEDER) athologist Signature Magnesium, S 2.0 1.7 - 2.3 07/03/2020 DTL mg/dL 9:00 AM GATHERING MACHINE FEEDER Specimen Anatomical Collection Method Collection Time Receive d Time (Source) Location / / Volume Laterality Blood (Blood, 07/03/2020 7:46 AM 07/03/20 8:15 Venous) GATHERING MACHINE FEEDER AM GATHERING MACHINE FEEDER Naseema Gangat M.B.B.S. LAB BLOOD ADD-ON Performing Organization Address City/State/ZIP [facility] Phon e Number [facility] - [address] [place], [place] [address] [place] [address] [address] [facility] Potassium (07/03/2020 7:46 AM GATHERING MACHINE FEEDER) athologist Signature Potassium, S 4.1 3.6 - 5.2 07/03/2020 DTL mmol/L 9:00 AM GATHERING MACHINE FEEDER Specimen Anatomical Collection Method Collection Time Receive d Time (Source) Location / / Volume Laterality Blood (Blood, 07/03/2020 7:46 AM 07/03/20 8:15 Venous) GATHERING MACHINE FEEDER AM GATHERING MACHINE FEEDER Naseema Gangat M.B.B.S. LAB BLOOD ADD-ON Performing Organization Address City/[facility] Code Phon e Number [facility] - [address] [place], [place] [address] [place] [address] [facility] [address] Sodium (07/03/2020 7:46 AM GATHERING MACHINE FEEDER) athologist Signature Sodium, S 144 135 - 145 07/03/2020 9:00 DTL mmol/L AM GATHERING MACHINE FEEDER Specimen Anatomical Collection Method Collection Time Receive d Time (Source) Location / / Volume Laterality Blood (Blood, 07/03/2020 7:46 AM 07/03/20 8:15 Venous) GATHERING MACHINE FEEDER AM GATHERING MACHINE FEEDER Naseema Gangat M.B.B.S. LAB BLOOD ADD-ON Performing Organization Address City/State/ZIP [facility] Phon e Number [facility] - [address] [place], [place] [address] [place] [phone] [place] [address] Alkaline Phosphatase (07/03/2020 7:46 AM GATHERING MACHINE FEEDER) P athologist Signature Alkaline 46 35 - 104 07/03/2020 DTL Phosphatase, S U/L 9:00 AM GATHERING MACHINE FEEDER Specimen Anatomical Collection Method Collection Time Receive d Time (Source) Location / / Volume Laterality Blood (Blood, 07/03/2020 7:46 AM 07/03/20 8:15 Venous) GATHERING MACHINE FEEDER AM GATHERING MACHINE FEEDER Janusz Dillon.B.B.S. LAB BLOOD ADD-ON Performing Organization Address City/State/[facility] Phon e Number [facility] - [address] AST (Aspartate Aminotransferase) (07/03/2020 7:46 AM GATHERING MACHINE FEEDER) [facility] gist Method Time Signature Aspartate 29 8 - 43 07/03/2020 DTL Aminotransferase U/L 9:00 AM GATHERING MACHINE FEEDER (AST), S Specimen Anatomical Collection Method Collection Time Receive d Time (Source) Location / / Volume Laterality Blood (Blood, 07/03/2020 7:46 AM 07/03/20 8:15 Venous) GATHERING MACHINE FEEDER AM GATHERING MACHINE FEEDER Janusz Dillon.B.B.S. LAB BLOOD ADD-ON Performing Organization Address City/[facility] Code Phon e Number [facility] - [address] [place], [place] [address] [place] [address] ALT (Alanine Aminotransferase) (07/03/2020 7:46 AM GATHERING MACHINE FEEDER) [facility] gist Method Time Signature Alanine 15 7 - 45 07/03/2020 DTL Aminotransferase U/L 9:00 AM GATHERING MACHINE FEEDER (ALT), S Specimen Anatomical Collection Method Collection Time Receive d Time (Source) Location / / Volume Laterality Blood (Blood, 07/03/2020 7:46 AM 07/03/20 8:15 Venous) GATHERING MACHINE FEEDER AM GATHERING MACHINE FEEDER Janusz Dillon.B.B.S. LAB BLOOD ADD-ON Performing Organization Address City/[facility]/ZIP [facility] Phon e Number [facility] - [address] [place], [place] [address] [place] [address] [facility] [address] (ABNORMAL) CBC with Differential, Blood (07/03/2020 7:46 AM GATHERING MACHINE FEEDER) [facility] gist Method Time Signature Hemoglobin 6.9 (L) 11.6 - 07/03/2020 DTL 15.0 g/dL 8:30 AM GATHERING MACHINE FEEDER Hematocrit 22.1 (L) 35.5 - 07/03/2020 DTL 44.9 % 8:30 AM GATHERING MACHINE FEEDER Erythrocytes 2.45 (L) 3.92 - 07/03/2020 DTL 5.13 8:30 AM GATHERING MACHINE FEEDER x10(12)/L MCV 90.2 78.2 - 07/03/2020 DTL 97.9 fL 8:30 AM GATHERING MACHINE FEEDER RBC Distrib Width 25.9 (H) 12.2 - 07/03/2020 DTL 16.1 % 8:30 AM GATHERING MACHINE FEEDER Platelet Count 136 (L) 157 - 371 07/03/2020 DTL x10(9)/L 8:30 AM GATHERING MACHINE FEEDER Leukocytes 3.3 (L) 3.4 - 9.6 07/03/2020 DTL x10(9)/L 9:30 AM GATHERING MACHINE FEEDER Comment: Results confirmed by smear. Neutrophils SeeComment 1.56 - 6.45 x10(9)/L 07/03/2020 9:30 AM GATHERING MACHINE FEEDER DTL Comment: Auto-diff results not valid. Se e manual differential. Specimen Anatomical Collection Method Collection Time Receive d Time (Source) Location / / Volume Laterality Blood (Blood, 07/03/2020 7:46 AM 07/03/20 20 8:16 Venous) GATHERING MACHINE FEEDER AM GATHERING MACHINE FEEDER Janusz Ardon LAB BLOOD ADD-ON Performing Organization Address City/State/ZIP Code Phon e Number [facility] - [address] [place], [place] [address] [facility] [place] [address] [facility] [address] documented in this encounter Visit Diagnoses Diagnosis Myelofibrosis (HCC) - Primary documented in this encounter
--- OUTSIDE RECORDS SUMMARY | 2022-05-02 12:11 | XMS_ITS | Encounter Summary ---
:1970 Author Organization [facility] Address [address] [place] [address] Care Team Providers Name Role Phone Unavailable Primary Care Provider Unavailable Encounter Details Date Type Department Care Team Description 06/20/2020 Orders Only Division of Hematology Janusz Govea M yelofibrosis (HCC) in [facility].B.B.S. 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
--- OUTSIDE RECORDS SUMMARY | 2022-05-02 12:11 | XMS_ITS | Encounter Summary ---
:1970 Author Organization [facility] Address [address] [place] [address] Care Team Providers Name Role Phone Unavailable Primary Care Provider Unavailable Reason for Visit Episode Based Medications (Routine) - Closed Specialty Diagnoses / Procedures Referred By Contact Refer red To Contact Medical Oncology / Diagnoses Myelofibrosis (HCC) Janusz Govea [facility]st [facility] Procedures ONCBCN INFUSION APPOINTMENT REQUEST 09 ONC THER INF M.B.B.S. [address] [facility] [address] [place] [phone] Referral ID Status Reason Start Date Expiration Date Visits Requ ested Visits Authorized [id number] Closed 06/06/2020 06/20/2021 99 30 Encounter Details Date Type Department Care Team Description 06/16/2020 Infusion Department of Oncology Janusz Govea M yelofibrosis (HCC) in [facility] [place] M.B.B.S. 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 documented as of this encounter Last Filed Vital Signs Vital Sign Reading Time Taken Comments Blood Pressure 138/47 06/16/2020 10:57 AM PLANT TOUR GUIDE Pulse 77 06/16/2020 10:57 AM PLANT TOUR GUIDE Temperature 36.2 ??C (97.1 ??F) 06/16/2020 10:57 AM PLANT TOUR GUIDE Respiratory Rate - - Oxygen Saturation - - Inhaled Oxygen Concentration - - Weight 93.7 kg (206 lb 9.1 oz) 06/16/2020 10:57 AM PLANT TOUR GUIDE shoes on Height - - Body Mass Index 31.86 06/06/2020 8:02 AM PLANT TOUR GUIDE documented in 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 Administered Medications Inactive Administered Medications - up to 3 most recent administrations Medication Order MAR Action Action Date Dose Rate Site Research IRB [id number] New Bag 06/16/2020 11:52 AM PLANT TOUR GUIDE 850 mg 500 mL/hr 9-ING-41 850 mg in NaCl 0.9% (non-PVC) 1,085 mL IVPB 850 mg (rounded from 849.09 mg = 9.3 mg/kg ? 91.3 kg Order-specific weight), intravenous, at 500 mL/hr, Once, On Fri06/16/20 at 1100, For 1 dose, CSTDs cannot be used. Flush with 30ml at IV site following completion of 9-ING-41. Monitor BP (pre dose & post dose), HR, temp, resp (pre-dose and as clinically indicated). Administer using 1.2 micron filter tubing via a peripheral or central line. sodium chloride (flush) 0.9 % injection 30 mL Given 06/16/2020 2:40 PM PLANT TOUR GUIDE 30 mL 30 mL, intravenous, Once, On Fri06/16/20 at 1100, For 1 dose, Post chemotherapy flush documented in this encounter
--- OUTSIDE RECORDS SUMMARY | 2022-05-02 12:11 | XMS_ITS | Encounter Summary ---
:1970 Author Organization [facility] Address [address] [place] [address] Care Team Providers Name Role Phone Unavailable Primary Care Provider Unavailable Encounter Details Date Type Department Care Team Description 06/16/2020 Orders Only Division of Hematology in [place], [place] [facility] 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
--- OUTSIDE RECORDS SUMMARY | 2022-05-02 12:11 | XMS_ITS | Encounter Summary ---
:1970 Author Organization [facility] Address [address] [place] [address] Care Team Providers Name Role Phone Unavailable Primary Care Provider Unavailable Encounter Details Date Type Department Care Team Description 06/27/2020 Hospital Encounter Department of Gangat, Myelofib rosis ([facility]) Laboratory Medicine [facility], and Pathology, [facility], in [address] [place] [phone] [place], [place] [phone] (Work) [phone] Social History Tobacco Use Types Packs/Day Years Used Date Smoking Tobacco: Former Smokeless Tobacco: Never Sex Assigned at Date Recorded Female 07/24/2021 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 CBC WITH DIFFERENTIAL, B Routine 06/27/2020 8:00 Myelofibrosis (HCC) Results for this AM DRY CELL ASSEMBLY SUPERVISOR procedure are i n the results section. TYPE AND SCREEN Routine 06/27/2020 8:00 Myelofibrosis (HCC) Re sults for this AM DRY CELL ASSEMBLY SUPERVISOR procedure are i n the results section. URIC ACID, S/P Routine 06/27/2020 8:00 Myelofibrosis (HCC) Res ults for this AM DRY CELL ASSEMBLY SUPERVISOR procedure are i n the results section. BUN (BLOOD UREA Routine 06/27/2020 8:00 Myelofibrosis (HCC) Re sults for this NITROGEN), S/P AM DRY CELL ASSEMBLY SUPERVISOR procedure are in the results section. ALANINE AMINOTRANSFERASE Routine 06/27/2020 8:00 Myelofibrosis (HCC) Results for this (ALT), S/P AM DRY CELL ASSEMBLY SUPERVISOR procedure are i n the results section. ASPARTATE Routine 06/27/2020 8:00 Myelofibrosis (HCC) Resul ts for this AMINOTRANSFERASE (AST), AM DRY CELL ASSEMBLY SUPERVISOR proc edure are in S/P the results section. SODIUM, S/P Routine 06/27/2020 8:00 Myelofibrosis (HCC) Resul ts for this AM DRY CELL ASSEMBLY SUPERVISOR procedure are i n the results section. PROTEIN, TOTAL, S/P Routine 06/27/2020 8:00 Myelofibrosis (HCC ) Results for this AM DRY CELL ASSEMBLY SUPERVISOR procedure are i n the results section. POTASSIUM, S/P Routine 06/27/2020 8:00 Myelofibrosis (HCC) Res ults for this AM DRY CELL ASSEMBLY SUPERVISOR procedure are i n the results section. ALKALINE PHOSPHATASE, Routine 06/27/2020 8:00 Myelofibrosis (H CC) Results for this S/P AM DRY CELL ASSEMBLY SUPERVISOR procedure are i n the results section. MAGNESIUM, S Routine 06/27/2020 8:00 Myelofibrosis (HCC) Resul ts for this AM DRY CELL ASSEMBLY SUPERVISOR procedure are i n the results section. GLUCOSE, RANDOM, S/P Routine 06/27/2020 8:00 Myelofibrosis (HC C) Results for this AM DRY CELL ASSEMBLY SUPERVISOR procedure are i n the results section. CREATININE WITH EGFR, Routine 06/27/2020 8:00 Myelofibrosis (H CC) Results for this S/P AM DRY CELL ASSEMBLY SUPERVISOR procedure are i n the results section. CHLORIDE, S/P Routine 06/27/2020 8:00 Myelofibrosis (HCC) Resu lts for this AM DRY CELL ASSEMBLY SUPERVISOR procedure are i n the results section. CALCIUM, TOT, S/P Routine 06/27/2020 8:00 Myelofibrosis (HCC) Results for this AM DRY CELL ASSEMBLY SUPERVISOR procedure are i n the results section. BILIRUBIN, TOT, S/P Routine 06/27/2020 8:00 Myelofibrosis (HCC ) Results for this AM DRY CELL ASSEMBLY SUPERVISOR procedure are i n the results section. ALBUMIN, S/P Routine 06/27/2020 8:00 Myelofibrosis (HCC) Resul ts for this AM DRY CELL ASSEMBLY SUPERVISOR procedure are i n the results section. documented in this encounter Results (ABNORMAL) Morphology Evaluation (Special Smear) (06/27/2020 8:00 AM DRY CELL ASSEMBLY SUPERVISOR) [facility] gist Method Time Signature Neutrophilic Segs 74 50 - 75 % 06/27/2020 DHPM and Bands 9:49 AM DRY CELL ASSEMBLY SUPERVISOR Lymphocytes 9 (L) 18 - 42 % 06/27/2020 DHPM 9:49 AM DRY CELL ASSEMBLY SUPERVISOR Monocytes 4 2 - 11 % 06/27/2020 DHPM 9:49 AM DRY CELL ASSEMBLY SUPERVISOR Eosinophils 2 1 - 3 % 06/27/2020 DHPM 9:49 AM DRY CELL ASSEMBLY SUPERVISOR Basophils 1 0 - 2 % 06/27/2020 DHPM 9:49 AM DRY CELL ASSEMBLY SUPERVISOR Metamyelocytes 5 (H) <1 % 06/27/2020 DHPM 9:49 AM DRY CELL ASSEMBLY SUPERVISOR Myelocytes 5 (H) <0.5 % 06/27/2020 DHPM 9:49 AM DRY CELL ASSEMBLY SUPERVISOR Megakaryocytes 1 (H) <1 /100 06/27/2020 DHPM WBC 9:49 AM DRY CELL ASSEMBLY SUPERVISOR Nucleated RBC 4 /100 WBC 06/27/2020 DHPM 9:49 AM DRY CELL ASSEMBLY SUPERVISOR Manual Absolute 2.37 1.56 - 06/27/2020 [facility] Neutrophil Count 6.45 9:49 AM DRY CELL ASSEMBLY SUPERVISOR x10(9)/L Comment: ----ADDITIONAL INFORMATION---- The manual absolute neutrophil count is derived from a manual differential count and therefore is not exactly comparable to the automated absolute halie trophil count. Specimen Anatomical Collection Method Collection Time Receive d Time (Source) Location / / Volume Laterality Blood 06/27/2020 8:00 AM 0 8:27 DRY CELL ASSEMBLY SUPERVISOR AM DRY CELL ASSEMBLY SUPERVISOR Janusz AlexandraS. LAB BLOOD ADD-ON Performing Organization Address City/[facility] Phon e Number [facility] - [address] [place] [id number] [address] Type and Screen (with reflex Antibody ID) (06/27/2020 8:00 AM DRY CELL ASSEMBLY SUPERVISOR) Patholo gist Method Time Signature ABORh A Pos Not 06/27/2020 ETRM applicable 10:17 AM DRY CELL ASSEMBLY SUPERVISOR Antibody Negative Negative 06/27/2020 ETRM Screen 10:29 AM DRY CELL ASSEMBLY SUPERVISOR Type & Screen 06/30/2020 06/27/2020 ETRM Expiration 23:59 10:17 AM DRY CELL ASSEMBLY SUPERVISOR Testing Deidra DEFAULT 06/27/2020 ETRM Location 8:36 AM DRY CELL ASSEMBLY SUPERVISOR Specimen Anatomical Collection Method Collection Time Receive d Time (Source) Location / / Volume Laterality Blood (Blood, 06/27/2020 8:00 AM 06/27/20 20 8:36 Venous) DRY CELL ASSEMBLY SUPERVISOR AM DRY CELL ASSEMBLY SUPERVISOR Jansuz AlexandraSZahraa LAB BLOOD BANK TEST ORDERABL ES Performing Organization Address City/[facility] Phon e Number [facility] - [address] [place], [place] [address] [facility] [place] [address] (ABNORMAL) Protein, Total (06/27/2020 8:00 AM DRY CELL ASSEMBLY SUPERVISOR) P athologist Signature Protein, 6.0 (L) 6.3 - 7.9 06/27/2020 DTL Total, S g/dL 9:12 AM DRY CELL ASSEMBLY SUPERVISOR Specimen Anatomical Collection Method Collection Time Receive d Time (Source) Location / / Volume Laterality Blood (Blood, 06/27/2020 8:00 AM 06/27/20 20 8:19 Venous) DRY CELL ASSEMBLY SUPERVISOR AM DRY CELL ASSEMBLY SUPERVISOR Janusz Govea M.B.B.S. LAB BLOOD ADD-ON Performing Organization Address City/[facility]/ZIP Code Phon e Number [facility] - [address] [place], [place] [address] [place] [address] [address] [facility] Albumin (06/27/2020 8:00 AM DRY CELL ASSEMBLY SUPERVISOR) athologist Signature Albumin, S 4.2 3.5 - 5.0 06/27/2020 DTL g/dL 9:12 AM DRY CELL ASSEMBLY SUPERVISOR Specimen Anatomical Collection Method Collection Time Receive d Time (Source) Location / / Volume Laterality Blood (Blood, 06/27/2020 8:00 AM 06/27/20 8:19 Venous) DRY CELL ASSEMBLY SUPERVISOR AM DRY CELL ASSEMBLY SUPERVISOR Janusz Govea M.B.B.S. LAB BLOOD ADD-ON Performing Organization Address City/[facility]/ZIP Code Phon e Number [facility] - [address] Glucose, Random (06/27/2020 8:00 AM DRY CELL ASSEMBLY SUPERVISOR) athologist Signature Glucose, S 98 70 - 140 06/27/2020 DTL mg/dL 9:12 AM DRY CELL ASSEMBLY SUPERVISOR Specimen Anatomical Collection Method Collection Time Receive d Time (Source) Location / / Volume Laterality Blood (Blood, 06/27/2020 8:00 AM 06/27/20 8:19 Venous) DRY CELL ASSEMBLY SUPERVISOR AM DRY CELL ASSEMBLY SUPERVISOR Janusz Govea M.B.B.S. LAB BLOOD TROPONIN Performing Organization Address City/State/ZIP [facility] Phon e Number [facility] - [address] Uric Acid (06/27/2020 8:00 AM DRY CELL ASSEMBLY SUPERVISOR) P athologist Signature Uric Acid, S 3.9 2.7 - 6.1 06/27/2020 DTL mg/dL 9:12 AM DRY CELL ASSEMBLY SUPERVISOR Specimen Anatomical Collection Method Collection Time Receive d Time (Source) Location / / Volume Laterality Blood (Blood, 06/27/2020 8:00 AM 06/27/20 20 8:19 Venous) DRY CELL ASSEMBLY SUPERVISOR AM DRY CELL ASSEMBLY SUPERVISOR Janusz AlexandraSZahraa LAB BLOOD ADD-ON Performing Organization Address City/[facility] Phon e Number [facility] - 200 [place], [place] [address] [facility] [place] [address] Laboratories-[address] Creatinine with Estimated GFR (06/27/2020 8:00 AM DRY CELL ASSEMBLY SUPERVISOR) athologist Signature Creatinine 0.97 0.59 - 06/27/2020 DTL 1.04 mg/dL 9:12 AM DRY CELL ASSEMBLY SUPERVISOR eGFR-Non 67 >=60 06/27/2020 DTL Black/ mL/min/BSA 9:12 AM DRY CELL ASSEMBLY SUPERVISOR Cameroonian Comment: ----ADDITIONAL INFORMATION---- Estimated GFR calculated using the 2009 CKD_EPI creatinine equation. eGFR-Black/ 78 >=60 mL/min/BSA 2019 9:12 AM DRY CELL ASSEMBLY SUPERVISOR DTL Comment: ----ADDITIONAL INFORMATION---- Estimated GFR calculated using the 2009 CKD_EPI creatinine equation. Specimen Anatomical Collection Method Collection Time Receive d Time (Source) Location / / Volume Laterality Blood (Blood, 06/27/2020 8:00 AM 06/27/20 8:19 Venous) DRY CELL ASSEMBLY SUPERVISOR AM DRY CELL ASSEMBLY SUPERVISOR Janusz AlexandraSZahraa LAB BLOOD ADD-ON Performing Organization Address City/[facility] Phon e Number [facility] - 200 [place], [place] [address] [place] [address] Laboratories[address] (ABNORMAL) BUN (Blood Urea Nitrogen) (06/27/2020 8:00 AM DRY CELL ASSEMBLY SUPERVISOR) athologist Signature BUN (Blood Urea 25 (H) 6 - 21 06/27/2020 DTL Nitrogen), S mg/dL 9:12 AM DRY CELL ASSEMBLY SUPERVISOR Specimen Anatomical Collection Method Collection Time Receive d Time (Source) Location / / Volume Laterality Blood (Blood, 06/27/2020 8:00 AM 06/27/20 20 8:19 Venous) DRY CELL ASSEMBLY SUPERVISOR AM DRY CELL ASSEMBLY SUPERVISOR Janusz AlexandraS. LAB BLOOD ADD-ON Performing Organization Address City/State/[facility] Phon e Number [facility] - [address] [place], [place] [address] [place] [address] 200 [facility] Bilirubin, Total (06/27/2020 8:00 AM DRY CELL ASSEMBLY SUPERVISOR) athologist Signature Bilirubin, 0.5 <=1.2 mg/dL 06/27/2020 DTL Total, S 9:12 AM DRY CELL ASSEMBLY SUPERVISOR Specimen Anatomical Collection Method Collection Time Receive d Time (Source) Location / / Volume Laterality Blood (Blood, 06/27/2020 8:00 AM 06/27/20 20 8:19 Venous) DRY CELL ASSEMBLY SUPERVISOR AM DRY CELL ASSEMBLY SUPERVISOR Naseema Gangat M.B.B.S. LAB BLOOD ADD-ON Performing Organization Address City/[facility] Phon e Number [facility] - [id number] [place] [address] Calcium, Total (06/27/2020 8:00 AM DRY CELL ASSEMBLY SUPERVISOR) athologist Signature Calcium, Total, 8.9 8.6 - 10.0 06/27/2020 DTL S mg/dL 9:12 AM DRY CELL ASSEMBLY SUPERVISOR Specimen Anatomical Collection Method Collection Time Receive d Time (Source) Location / / Volume Laterality Blood (Blood, 06/27/2020 8:00 AM 06/27/20 20 8:19 Venous) DRY CELL ASSEMBLY SUPERVISOR AM DRY CELL ASSEMBLY SUPERVISOR Nasbaltazarma Harrygat M.B.B.S. LAB BLOOD ADD-ON Performing Organization Address City/State/ZIP Code Phon e Number [facility] - 200 [place], [place] [address] [place] [id number] [place] [address] Chloride (06/27/2020 8:00 AM DRY CELL ASSEMBLY SUPERVISOR) athologist Signature Chloride, S 106 98 - 107 06/27/2020 DTL mmol/L 9:12 AM DRY CELL ASSEMBLY SUPERVISOR Specimen Anatomical Collection Method Collection Time Receive d Time (Source) Location / / Volume Laterality Blood (Blood, 06/27/2020 8:00 AM 06/27/20 20 8:19 Venous) DRY CELL ASSEMBLY SUPERVISOR AM DRY CELL ASSEMBLY SUPERVISOR Naseema Gangat M.B.B.S. LAB BLOOD ADD-ON Performing Organization Address City/[facility]/ZIP Code Phon e Number [facility] - [address] Magnesium (06/27/2020 8:00 AM DRY CELL ASSEMBLY SUPERVISOR) P athologist Signature Magnesium, S 2.0 1.7 - 2.3 06/27/2020 DTL mg/dL 9:12 AM DRY CELL ASSEMBLY SUPERVISOR Specimen Anatomical Collection Method Collection Time Receive d Time (Source) Location / / Volume Laterality Blood (Blood, 06/27/2020 8:00 AM 06/27/20 20 8:19 Venous) DRY CELL ASSEMBLY SUPERVISOR AM DRY CELL ASSEMBLY SUPERVISOR Janusz Holt.S. LAB BLOOD ADD-ON Performing Organization Address City/[facility] Phon e Number [facility] - [address] Potassium (06/27/2020 8:00 AM DRY CELL ASSEMBLY SUPERVISOR) P athologist Signature Potassium, S 4.6 3.6 - 5.2 06/27/2020 DTL mmol/L 9:12 AM DRY CELL ASSEMBLY SUPERVISOR Specimen Anatomical Collection Method Collection Time Receive d Time (Source) Location / / Volume Laterality Blood (Blood, 06/27/2020 8:00 AM 06/27/20 20 8:19 Venous) DRY CELL ASSEMBLY SUPERVISOR AM DRY CELL ASSEMBLY SUPERVISOR Janusz Holt.S. LAB BLOOD ADD-ON Performing Organization Address City/[facility] Phon e Number [facility] - [address] Sodium (06/27/2020 8:00 AM DRY CELL ASSEMBLY SUPERVISOR) P athologist Signature Sodium, S 142 135 - 145 06/27/2020 9:12 DTL mmol/L AM DRY CELL ASSEMBLY SUPERVISOR Specimen Anatomical Collection Method Collection Time Receive d Time (Source) Location / / Volume Laterality Blood (Blood, 06/27/2020 8:00 AM 06/27/20 20 8:19 Venous) DRY CELL ASSEMBLY SUPERVISOR AM DRY CELL ASSEMBLY SUPERVISOR Janusz AlexandraS. LAB BLOOD ADD-ON Performing Organization Address City/State/ZIP Code Phon e Number [facility] - [address] [place], [place] [address] [place], [place] [phone] [place] [address] [address] [facility] Alkaline Phosphatase (06/27/2020 8:00 AM DRY CELL ASSEMBLY SUPERVISOR) P athologist Signature Alkaline 42 35 - 104 06/27/2020 DTL Phosphatase, S U/L 9:12 AM DRY CELL ASSEMBLY SUPERVISOR Specimen Anatomical Collection Method Collection Time Receive d Time (Source) Location / / Volume Laterality Blood (Blood, 06/27/2020 8:00 AM 06/27/20 20 8:19 Venous) DRY CELL ASSEMBLY SUPERVISOR AM DRY CELL ASSEMBLY SUPERVISOR Janusz AlexandraS. LAB BLOOD ADD-ON Performing Organization Address City/[facility]/RUST Code Phon e Number [facility] - [address] [place], [place] [address] 05 [place] [address] AST (Aspartate Aminotransferase) (06/27/2020 8:00 AM DRY CELL ASSEMBLY SUPERVISOR) Patholo gist Method Time Signature Aspartate 26 8 - 43 06/27/2020 DTL Aminotransferase U/L 9:12 AM DRY CELL ASSEMBLY SUPERVISOR (AST), S Specimen Anatomical Collection Method Collection Time Receive d Time (Source) Location / / Volume Laterality Blood (Blood, 06/27/2020 8:00 AM 06/27/20 20 8:19 Venous) DRY CELL ASSEMBLY SUPERVISOR AM DRY CELL ASSEMBLY SUPERVISOR Janusz AlexandraS. LAB BLOOD ADD-ON Performing Organization Address City/[facility]/ZIP Code Phon e Number [facility] - [address] [place], [place] [address] [place], [place] [phone] [place] [address] [facility] ALT (Alanine Aminotransferase) (06/27/2020 8:00 AM DRY CELL ASSEMBLY SUPERVISOR) Patholo gist Method Time Signature Alanine 16 7 - 45 06/27/2020 DTL Aminotransferase U/L 9:12 AM DRY CELL ASSEMBLY SUPERVISOR (ALT), S Specimen Anatomical Collection Method Collection Time Receive d Time (Source) Location / / Volume Laterality Blood (Blood, 06/27/2020 8:00 AM 06/27/20 20 8:19 Venous) DRY CELL ASSEMBLY SUPERVISOR AM DRY CELL ASSEMBLY SUPERVISOR Janusz AlexandraSZahraa LAB BLOOD ADD-ON Performing Organization Address City/State/[facility] Phon e Number [facility] - [address] (ABNORMAL) CBC with Differential, Blood (06/27/2020 8:00 AM DRY CELL ASSEMBLY SUPERVISOR) [facility] Method Time Signature Hemoglobin 7.4 (L) 11.6 - 06/27/2020 DTL 15.0 g/dL 8:42 AM DRY CELL ASSEMBLY SUPERVISOR Hematocrit 24.8 (L) 35.5 - 06/27/2020 DTL 44.9 % 8:42 AM DRY CELL ASSEMBLY SUPERVISOR Erythrocytes 2.67 (L) 3.92 - 06/27/2020 DTL 5.13 8:42 AM DRY CELL ASSEMBLY SUPERVISOR x10(12)/L MCV 92.9 78.2 - 06/27/2020 DTL 97.9 fL 8:42 AM DRY CELL ASSEMBLY SUPERVISOR RBC Distrib 24.8 (H) 12.2 - 06/27/2020 DTL Width 16.1 % 8:42 AM DRY CELL ASSEMBLY SUPERVISOR Platelet Count 115 (L) 157 - 371 06/27/2020 DTL x10(9)/L 8:42 AM DRY CELL ASSEMBLY SUPERVISOR Leukocytes 3.2 (L) 3.4 - 9.6 06/27/2020 DTL x10(9)/L 9:48 AM DRY CELL ASSEMBLY SUPERVISOR Neutrophils SeeComment 1.56 - 06/27/2020 DTL 6.45 9:48 AM DRY CELL ASSEMBLY SUPERVISOR x10(9)/L Comment: Auto-diff results not valid. Se e manual differential. Specimen Anatomical Collection Method Collection Time Receive d Time (Source) Location / / Volume Laterality Blood (Blood, 06/27/2020 8:00 AM 06/27/20 20 8:27 Venous) DRY CELL ASSEMBLY SUPERVISOR AM DRY CELL ASSEMBLY SUPERVISOR Janusz AlexandraSZahraa LAB BLOOD ADD-ON Performing Organization Address City/[facility] Phon e Number [facility] - [address] documented in this encounter Visit Diagnoses Diagnosis Myelofibrosis (HCC) documented in this encounter
--- OUTSIDE RECORDS SUMMARY | 2022-05-02 12:12 | XMS_ITS | Encounter Summary ---
:1970 Author Organization [facility] Address [address] [place] [address] Care Team Providers Name Role Phone Unavailable Primary Care Provider Unavailable Encounter Details Date Type Department Care Team Description 06/06/2020 Hospital Encounter Department of Gangat, Myelofib rosis ([facility]) Laboratory Medicine [facility], and Pathology, [facility], in [address] [place] [id number] [place], [place] [phone] (Work) [phone] Social History Tobacco Use Types Packs/Day Years Used Date Smoking Tobacco: Former Smokeless Tobacco: Never Sex Assigned at Date Recorded Female 07/24/2021 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 ibuprofen (ADVIL,MOTRIN) Take 400 mg by mouth [...] Associated Diagnosis Comme nts TEST, U Routine 06/06/2020 7:51 AM Myelofibrosis (HC C) Results for this DIGITAL CONTENT COORDINATOR procedure are i n the results section. documented in this encounter Results Test, Qualitative, Urine (06/06/2020 7:51 AM DIGITAL CONTENT COORDINATOR) P athologist Signature Negative 06/06/2020 TUNDE Test, U 8:27 AM DIGITAL CONTENT COORDINATOR Specimen Anatomical Collection Method Collection Time Receive d Time (Source) Location / / Volume Laterality Urine (Urine, 06/06/2020 7:51 AM 06/06/20 7:51 Clean Catch) DIGITAL CONTENT COORDINATOR AM DIGITAL CONTENT COORDINATOR Janusz Ardon LAB URINE ORDERABLES Performing Organization Address City/State/ZIP Code Phon e Number [facility] - [address] [place], [place] [address] [place] [address] Laboratories-[facility] [address] documented in this encounter Visit Diagnoses Diagnosis Myelofibrosis (HCC) documented in this encounter
--- OUTSIDE RECORDS SUMMARY | 2022-05-02 12:12 | XMS_ITS | Encounter Summary ---
:1970 Author Organization [facility] Address [address] [place] [id number] Care Team Providers Name Role Phone Unavailable Primary Care Provider Unavailable Reason for Referral Outpatient (Routine) - Closed Specialty Diagnoses / Procedures Referred By Contact Refer red To Contact Radiology Diagnoses Myelofibrosis (HCC) Janusz Govea M.B.B.S. [facility] Procedures CT Abdomen Pelvis with IV Contrast CT Abdomen Pelvis without and with IV Contrast PA CT ABD&PELVIS WO/W CNTRST [address] [place] [address] Referral ID Status Reason Start Date Expiration Date Visits Requ ested Visits Authorized [id number] Closed 06/02/2020 06/02/2021 1 1 N UNLOADER MACHINE Encounter Details Date Type Department Care Team Description 06/02/2020 Orders Only Division of Hematology Janusz Govea M yelofibrosis (HCC) in [facility] M.B.B.S. (Primary Dx) [place] [address] [facility] [address] [place] [id number] Social History Tobacco Use Types Packs/Day Years Used Date Smoking Tobacco: Former Smokeless Tobacco: Never Sex Assigned at Date Recorded Female 07/24/2021 11:03 AM [employer]RAIN [employer]ACH[employer] documented as of this encounter Plan of Treatment Not on filedocumented as of this encounter Results CT Abdomen Pelvis with IV Contrast (06/05/2020 1:48 PM GRAIN UNLOAD[employer] MACHINE) Anatomical Region Laterality Modality Abdomen, Pelvis, Abdominal RST LOS, N/A Comp uted Tomography, Computed Abdominal ARZ LOS, Abdominal FLA LOS Esa ography Specimen (Source) Anatomical Collection Method Collection Time Re ceived Time Location / / Volume Laterality 06/05/2020 3:28 PM GRAIN [employer] MACHINE Impressions 06/05/2020 4:38 PM [employer]RAIN [employer]ACH[employer] 1. Marked splenomegaly, with the spleen measuring 33 cm. 2. Small splenic infarct in the anteroin ferior portion of the spleen. 3. Indeterminate 1.5 cm left adrenal mas s, likely an adenoma. Narrative 06/05/2020 4:38 PM GRAIN [employer]ACHINE EXAM: ??CT ABDOMEN PELVIS WITH IV CONTRAST COMPARISON: ??Partially completed MR abd omen 06/01/2020 FINDINGS: ??Marked splenomegaly with the spleen measuring 33 cm in cephalocaudal dimension (series 3 image 47). Splenic i nfarct in the kathleen-inferior portion of the spleen (series 3 image 21, series 2 image 112). Small hypoattenuating lesion in the superomedial spleen likely is a h emangioma (series 2 image 34). Enlargement of the splenic and portal ve ins with the splenic vein measuring up to 2.5 cm in diameter. No focal liver le linda. Approximately 1.5 cm hypoattenuating lef t adrenal nodule. The right adrenal gland is normal. There is significant ma ss effect by the hepatosplenomegaly on the remaining intra-abdominal organs, bu t the pancreas and kidneys appear normal. ??Cholelithiasis. No lymphadenopathy in the abdomen or pel vis. The uterus and adnexa are normal in appearance. Normal caliber small and lar ge bowel. No discrete osseous lesion. Procedure Note Yaw Gold M.D. - 06/05/2020Formatti ng of this note might be different from the original. EXAM: CT ABDOMEN PELVIS WITH IV CONTRAST COMPARISON: Partially completed MR abdom en 06/01/2020 FINDINGS: Marked splenomegaly with the s pleen measuring 33 cm in cephalocaudal dimension (series 3 image 47). Splenic i nfarct in the kathleen-inferior portion of the spleen (series 3 image 21, series 2 image 112). Small hypoattenuating lesion in the superomedial spleen likely is a h emangioma (series 2 image 34). Enlargement of the splenic and portal ve ins with the splenic vein measuring up to 2.5 cm in diameter. No focal liver le linda. Approximately 1.5 cm hypoattenuating lef t adrenal nodule. The right adrenal gland is normal. There is significant ma ss effect by the hepatosplenomegaly on the remaining intra-abdominal organs, bu t the pancreas and kidneys appear normal. Cholelithiasis. No lymphadenopathy in the abdomen or pel vis. The uterus and adnexa are normal in appearance. Normal caliber small and lar ge bowel. No discrete osseous lesion. IMPRESSION: 1. Marked splenomegaly, with the spleen measuring 33 cm. 2. Small splenic infarct in the anteroin ferior portion of the spleen. 3. Indeterminate 1.5 cm left adrenal mas s, likely an adenoma. Janusz AlexandraSZahraa IMG CT PROCEDURES documented in this encounter Visit Diagnoses Diagnosis Myelofibrosis (HCC) - Primary Myelofibrosis (HCC) documented in this encounter
--- OUTSIDE RECORDS SUMMARY | 2022-05-02 12:12 | XMS_ITS | Encounter Summary ---
:1970 Author Organization [facility] Address [address] [place] [id number] Care Team Providers Name Role Phone Unavailable Primary Care Provider Unavailable Encounter Details Date Type Department Care Team Description 06/04/2020 Orders Only Division of Hematology Janusz Govea M yelofibrosis (HCC) in [facility] M.B.B.S. (Primary Dx) [address] [id number] [phone] Social History Tobacco Use Types Packs/Day Years Used Date Smoking Tobacco: Former Smokeless Tobacco: Never Sex Assigned at Date Recorded Female 07/24/2021 11:03 AM ULTRASONIC SOLDERER documented as of this encounter Plan of Treatment Not on filedocumented as of this encounter Results (ABNORMAL) Protein, Total (06/27/2020 8:00 AM ULTRASONIC SOLDERER) P athologist Signature Protein, 6.0 (L) 6.3 - 7.9 06/27/2020 DTL Total, S g/dL 9:12 AM ULTRASONIC SOLDERER Specimen Anatomical Collection Method Collection Time Receive d Time (Source) Location / / Volume Laterality Blood (Blood, 06/27/2020 8:00 AM 06/27/20 20 8:19 Venous) ULTRASONIC SOLDERER AM ULTRASONIC SOLDERER Janusz HayesBZahraaB.SZahraa LAB BLOOD ADD-ON Performing Organization Address City/State/ZIP Code Phon e Number [facility] - 200 [place], [place] [address] [place] [address] [facility] [address] [facility] Albumin (06/27/2020 8:00 AM ULTRASONIC SOLDERER) P athologist Signature Albumin, S 4.2 3.5 - 5.0 06/27/2020 DTL g/dL 9:12 AM ULTRASONIC SOLDERER Specimen Anatomical Collection Method Collection Time Receive d Time (Source) Location / / Volume Laterality Blood (Blood, 06/27/2020 8:00 AM 06/27/20 8:19 Venous) ULTRASONIC SOLDERER AM ULTRASONIC SOLDERER Nasjonathan Mcdonaldgat M.B.B.S. LAB BLOOD ADD-ON Performing Organization Address City/State/ZIP Code Phon e Number [facility] - [address] [address] [facility] [address] [facility] Glucose, Random (06/27/2020 8:00 AM ULTRASONIC SOLDERER) athologist Signature Glucose, S 98 70 - 140 06/27/2020 DTL mg/dL 9:12 AM ULTRASONIC SOLDERER Specimen Anatomical Collection Method Collection Time Receive d Time (Source) Location / / Volume Laterality Blood (Blood, 06/27/2020 8:00 AM 06/27/20 8:19 Venous) ULTRASONIC SOLDERER AM ULTRASONIC SOLDERER Naseema Gangat M.B.B.S. LAB BLOOD TROPONIN Performing Organization Address City/[facility]/ZIP Code Phon e Number [facility] - [address] [address] [facility] [address] [facility] Uric Acid (06/27/2020 8:00 AM ULTRASONIC SOLDERER) athologist Signature Uric Acid, S 3.9 2.7 - 6.1 06/27/2020 DTL mg/dL 9:12 AM ULTRASONIC SOLDERER Specimen Anatomical Collection Method Collection Time Receive d Time (Source) Location / / Volume Laterality Blood (Blood, 06/27/2020 8:00 AM 06/27/20 8:19 Venous) ULTRASONIC SOLDERER AM ULTRASONIC SOLDERER Nasbaltazarma Harrygat M.B.B.S. LAB BLOOD ADD-ON Performing Organization Address City/State/ZIP Code Phon e Number [facility] - [id number] [place] [address] Creatinine with Estimated GFR (06/27/2020 8:00 AM ULTRASONIC SOLDERER) athologist Signature Creatinine 0.97 0.59 - 06/27/2020 DTL 1.04 mg/dL 9:12 AM ULTRASONIC SOLDERER eGFR-Non 67 >=60 06/27/2020 DT Black/ mL/min/BSA 9:12 AM ULTRASONIC SOLDERER [place] Comment: ----ADDITIONAL INFORMATION---- Estimated GFR calculated using the 2009 CKD_EPI creatinine equation. eGFR-Black/ 78 >=60 mL/min/BSA 2019 9:12 AM ULTRASONIC SOLDERER DTL Comment: ----ADDITIONAL INFORMATION---- Estimated GFR calculated using the 2009 CKD_EPI creatinine equation. Specimen Anatomical Collection Method Collection Time Receive d Time (Source) Location / / Volume Laterality Blood (Blood, 06/27/2020 8:00 AM 06/27/20 8:19 Venous) ULTRASONIC SOLDERER AM ULTRASONIC SOLDERER Janusz ArringtonB.S. LAB BLOOD ADD-ON Performing Organization Address City/State/ZIP Code Phon e Number [facility] - [id number] [place] [address] (ABNORMAL) BUN (Blood Urea Nitrogen) (06/27/2020 8:00 AM ULTRASONIC SOLDERER) athologist [facility] BUN (Blood Urea 25 (H) 6 - 21 06/27/2020 DT Nitrogen), S mg/dL 9:12 AM ULTRASONIC SOLDERER Specimen Anatomical Collection Method Collection Time Receive d Time (Source) Location / / Volume Laterality Blood (Blood, 06/27/2020 8:00 AM 06/27/20 20 8:19 Venous) ULTRASONIC SOLDERER AM ULTRASONIC SOLDERER Janusz ArringtonB.S. LAB BLOOD ADD-ON Performing Organization Address City/State/[facility] Phon e Number [facility] - [id number] [place] [address] Bilirubin, Total (06/27/2020 8:00 AM ULTRASONIC SOLDERER) athologist Signature Bilirubin, 0.5 <=1.2 mg/dL 06/27/2020 DTL Total, S 9:12 AM ULTRASONIC SOLDERER Specimen Anatomical Collection Method Collection Time Receive d Time (Source) Location / / Volume Laterality Blood (Blood, 06/27/2020 8:00 AM 06/27/20 20 8:19 Venous) ULTRASONIC SOLDERER AM ULTRASONIC SOLDERER Naseema Gangat M.B.B.S. LAB BLOOD ADD-ON Performing Organization Address City/State/ZIP Code Phon e Number [facility] - [address] Calcium, Total (06/27/2020 8:00 AM ULTRASONIC SOLDERER) athologist Signature Calcium, Total, 8.9 8.6 - 10.0 06/27/2020 DTL S mg/dL 9:12 AM ULTRASONIC SOLDERER Specimen Anatomical Collection Method Collection Time Receive d Time (Source) Location / / Volume Laterality Blood (Blood, 06/27/2020 8:00 AM 06/27/20 20 8:19 Venous) ULTRASONIC SOLDERER AM ULTRASONIC SOLDERER Naseema Gangat M.B.B.S. LAB BLOOD ADD-ON Performing Organization Address City/State/ZIP Code Phon e Number [facility] - [address] Chloride (06/27/2020 8:00 AM ULTRASONIC SOLDERER) athologist Signature Chloride, S 106 98 - 107 06/27/2020 DTL mmol/L 9:12 AM ULTRASONIC SOLDERER Specimen Anatomical Collection Method Collection Time Receive d Time (Source) Location / / Volume Laterality Blood (Blood, 06/27/2020 8:00 AM 06/27/20 8:19 Venous) ULTRASONIC SOLDERER AM ULTRASONIC SOLDERER Naseema Gangat M.B.B.S. LAB BLOOD ADD-ON Performing Organization Address City/State/ZIP Code Phon e Number [facility] - [address] [place], [place] [address] [place] [address] [facility] [address] Magnesium (06/27/2020 8:00 AM ULTRASONIC SOLDERER) athologist Signature Magnesium, S 2.0 1.7 - 2.3 06/27/2020 DTL mg/dL 9:12 AM ULTRASONIC SOLDERER Specimen Anatomical Collection Method Collection Time Receive d Time (Source) Location / / Volume Laterality Blood (Blood, 06/27/2020 8:00 AM 06/27/20 20 8:19 Venous) ULTRASONIC SOLDERER AM ULTRASONIC SOLDERER Naseema Gangat M.B.B.S. LAB BLOOD ADD-ON Performing Organization Address City/State/ZIP Code Phon e Number [facility] - [address] Potassium (06/27/2020 8:00 AM ULTRASONIC SOLDERER) athologist Signature Potassium, S 4.6 3.6 - 5.2 06/27/2020 DTL mmol/L 9:12 AM ULTRASONIC SOLDERER Specimen Anatomical Collection Method Collection Time Receive d Time (Source) Location / / Volume Laterality Blood (Blood, 06/27/2020 8:00 AM 06/27/20 20 8:19 Venous) ULTRASONIC SOLDERER AM ULTRASONIC SOLDERER Naseema Gangat M.B.B.S. LAB BLOOD ADD-ON Performing Organization Address City/[facility]/ZIP Code Phon e Number [facility] - [address] Sodium (06/27/2020 8:00 AM ULTRASONIC SOLDERER) athologist Signature Sodium, S 142 135 - 145 06/27/2020 9:12 DTL mmol/L AM ULTRASONIC SOLDERER Specimen Anatomical Collection Method Collection Time Receive d Time (Source) Location / / Volume Laterality Blood (Blood, 06/27/2020 8:00 AM 06/27/20 20 8:19 Venous) ULTRASONIC SOLDERER AM ULTRASONIC SOLDERER Naseema Gangat M.B.B.S. LAB BLOOD ADD-ON Performing Organization Address City/State/ZIP Code Phon e Number [facility] - [address] [place], [place] [address] [place] [phone] [place] [address] Alkaline Phosphatase (06/27/2020 8:00 AM ULTRASONIC SOLDERER) P athologist Signature Alkaline 42 35 - 104 06/27/2020 DTL Phosphatase, S U/L 9:12 AM ULTRASONIC SOLDERER Specimen Anatomical Collection Method Collection Time Receive d Time (Source) Location / / Volume Laterality Blood (Blood, 06/27/2020 8:00 AM 06/27/20 8:19 Venous) ULTRASONIC SOLDERER AM ULTRASONIC SOLDERER Nasjonathan Govea M.B.B.S. LAB BLOOD ADD-ON Performing Organization Address City/State/ZIP Code Phon e Number [facility] - [address] [place], [place] [address] [facility] [place] [address] [facility] [address] AST (Aspartate Aminotransferase) (06/27/2020 8:00 AM ULTRASONIC SOLDERER) [facility] gist Method Time Signature Aspartate 26 8 - 43 06/27/2020 DTL Aminotransferase U/L 9:12 AM ULTRASONIC SOLDERER (AST), S Specimen Anatomical Collection Method Collection Time Receive d Time (Source) Location / / Volume Laterality Blood (Blood, 06/27/2020 8:00 AM 06/27/20 20 8:19 Venous) ULTRASONIC SOLDERER AM ULTRASONIC SOLDERER Nasjonathan Mcdonaldgat M.B.B.S. LAB BLOOD ADD-ON Performing Organization Address City/State/ZIP Code Phon e Number [facility] - [address] [place], [place] [address] [facility] [place] [address] [facility] [address] ALT (Alanine Aminotransferase) (06/27/2020 8:00 AM ULTRASONIC SOLDERER) [facility] gist Method Time Signature Alanine 16 7 - 45 06/27/2020 DTL Aminotransferase U/L 9:12 AM ULTRASONIC SOLDERER (ALT), S Specimen Anatomical Collection Method Collection Time Receive d Time (Source) Location / / Volume Laterality Blood (Blood, 06/27/2020 8:00 AM 06/27/20 20 8:19 Venous) ULTRASONIC SOLDERER AM ULTRASONIC SOLDERER Naseewilman Gangat M.B.B.S. LAB BLOOD ADD-ON Performing Organization Address City/State/ZIP Code Phon e Number [facility] - [address] [place], [place] [address] [facility] [place] [address] [facility] [address] (ABNORMAL) CBC with Differential, Blood (06/27/2020 8:00 AM ULTRASONIC SOLDERER) Patholo gist Method Time Signature Hemoglobin 7.4 (L) 11.6 - 06/27/2020 DTL 15.0 g/dL 8:42 AM ULTRASONIC SOLDERER Hematocrit 24.8 (L) 35.5 - 06/27/2020 DTL 44.9 % 8:42 AM ULTRASONIC SOLDERER Erythrocytes 2.67 (L) 3.92 - 06/27/2020 DTL 5.13 8:42 AM ULTRASONIC SOLDERER x10(12)/L MCV 92.9 78.2 - 06/27/2020 DTL 97.9 fL 8:42 AM ULTRASONIC SOLDERER RBC Distrib 24.8 (H) 12.2 - 06/27/2020 DTL Width 16.1 % 8:42 AM ULTRASONIC SOLDERER Platelet Count 115 (L) 157 - 371 06/27/2020 DTL x10(9)/L 8:42 AM ULTRASONIC SOLDERER Leukocytes 3.2 (L) 3.4 - 9.6 06/27/2020 DTL x10(9)/L 9:48 AM ULTRASONIC SOLDERER Neutrophils SeeComment 1.56 - 06/27/2020 DTL 6.45 9:48 AM ULTRASONIC SOLDERER x10(9)/L Comment: Auto-diff results not valid. Se e manual differential. Specimen Anatomical Collection Method Collection Time Receive d Time (Source) Location / / Volume Laterality Blood (Blood, 06/27/2020 8:00 AM 06/27/20 8:27 Venous) ULTRASONIC SOLDERER AM ULTRASONIC SOLDERER Janusz Ardon LAB BLOOD ADD-ON Performing Organization Address City/State/ZIP Code Phon e Number [facility] - 200 [place], [place] [address] [facility] [place] [address] [facility] 200 [facility] (ABNORMAL) Protein, Total (06/20/2020 8:08 AM ULTRASONIC SOLDERER) P athologist Signature Protein, 6.1 (L) 6.3 - 7.9 06/20/2020 DTL Total, S g/dL 9:56 AM ULTRASONIC SOLDERER Specimen Anatomical Collection Method Collection Time Receive d Time (Source) Location / / Volume Laterality Blood (Blood, 06/20/2020 8:08 AM 06/20/20 8:56 Venous) ULTRASONIC SOLDERER AM ULTRASONIC SOLDERER Janusz ArringtonB.S. LAB BLOOD ADD-ON Performing Organization Address City/[facility]/ZIP [facility] Phon e Number [facility] - [address] Albumin (06/20/2020 8:08 AM ULTRASONIC SOLDERER) P athologist Signature Albumin, S 4.2 3.5 - 5.0 06/20/2020 DTL g/dL 9:56 AM ULTRASONIC SOLDERER Specimen Anatomical Collection Method Collection Time Receive d Time (Source) Location / / Volume Laterality Blood (Blood, 06/20/2020 8:08 AM 06/20/20 8:56 Venous) ULTRASONIC SOLDERER AM ULTRASONIC SOLDERER Janusz ArringtonB.S. LAB BLOOD ADD-ON Performing Organization Address City/[facility] Phon e Number [facility] - [address] Glucose, Random (06/20/2020 8:08 AM ULTRASONIC SOLDERER) athologist Signature Glucose, S 140 70 - 140 06/20/2020 DTL mg/dL 9:56 AM ULTRASONIC SOLDERER Specimen Anatomical Collection Method Collection Time Receive d Time (Source) Location / / Volume Laterality Blood (Blood, 06/20/2020 8:08 AM 06/20/20 8:56 Venous) ULTRASONIC SOLDERER AM ULTRASONIC SOLDERER Janusz ArringtonB.S. LAB BLOOD TROPONIN Performing Organization Address City/[facility]/ZIP Code Phon e Number [facility] - 200 [place], [place] [address] [place] [address] Uric Acid (06/20/2020 8:08 AM ULTRASONIC SOLDERER) P athologist Signature Uric Acid, S 4.2 2.7 - 6.1 06/20/2020 DTL mg/dL 9:56 AM ULTRASONIC SOLDERER Specimen Anatomical Collection Method Collection Time Receive d Time (Source) Location / / Volume Laterality Blood (Blood, 06/20/2020 8:08 AM 06/20/20 8:56 Venous) ULTRASONIC SOLDERER AM ULTRASONIC SOLDERER Janusz AlexandraSZahraa LAB BLOOD ADD-ON Performing Organization Address City/[facility]/ZIP Code Phon e Number [facility] - 200 [place], [place] [address] [place] [address] Laboratories-[address] (ABNORMAL) Creatinine with Estimated GFR (06/20/2020 8:08 AM ULTRASONIC SOLDERER) Analysis Performed At Patho logist Time Signature Creatinine 1.07 (H) 0.59 - 06/20/2020 DTL 1.04 mg/dL 9:56 AM ULTRASONIC SOLDERER eGFR-Non 60 >=60 06/20/2020 DTL Black/ mL/min/BSA 9:56 AM ULTRASONIC SOLDERER [place] Comment: ----ADDITIONAL INFORMATION---- Estimated GFR calculated using the 2009 CKD_EPI creatinine equation. eGFR-Black/ 69 >=60 mL/min/BSA 2019 9:56 AM ULTRASONIC SOLDERER DTL Comment: ----ADDITIONAL INFORMATION---- Estimated GFR calculated using the 2009 CKD_EPI creatinine equation. Specimen Anatomical Collection Method Collection Time Receive d Time (Source) Location / / Volume Laterality Blood (Blood, 06/20/2020 8:08 AM 06/20/20 8:56 Venous) ULTRASONIC SOLDERER AM ULTRASONIC SOLDERER Janusz AlexandraSZahraa LAB BLOOD ADD-ON Performing Organization Address City/[facility]/ZIP Code Phon e Number [facility] - 200 [place], [place] [address] [facility] [place] [address] Laboratories[address] (ABNORMAL) BUN (Blood Urea Nitrogen) (06/20/2020 8:08 AM ULTRASONIC SOLDERER) P athologist Signature BUN (Blood Urea 25 (H) 6 - 21 06/20/2020 DTL Nitrogen), S mg/dL 9:56 AM ULTRASONIC SOLDERER Specimen Anatomical Collection Method Collection Time Receive d Time (Source) Location / / Volume Laterality Blood (Blood, 06/20/2020 8:08 AM 06/20/20 8:56 Venous) ULTRASONIC SOLDERER AM ULTRASONIC SOLDERER Janusz AlexandraSZahraa LAB BLOOD ADD-ON Performing Organization Address City/[facility]/ZIP Code Phon e Number [facility] - 200 [place], [place] [address] [place] [address] Bilirubin, Total (06/20/2020 8:08 AM ULTRASONIC SOLDERER) athologist Signature Bilirubin, 0.5 <=1.2 mg/dL 06/20/2020 DTL Total, S 9:56 AM ULTRASONIC SOLDERER Specimen Anatomical Collection Method Collection Time Receive d Time (Source) Location / / Volume Laterality Blood (Blood, 06/20/2020 8:08 AM 06/20/20 8:56 Venous) ULTRASONIC SOLDERER AM ULTRASONIC SOLDERER Naseema Gangat M.B.B.S. LAB BLOOD ADD-ON Performing Organization Address City/[facility]/ZIP Code Phon e Number [facility] - 200 [place], [place] [address] [place] [id number] [place] [address] Calcium, Total (06/20/2020 8:08 AM ULTRASONIC SOLDERER) athologist Signature Calcium, Total, 8.7 8.6 - 10.0 06/20/2020 DTL S mg/dL 9:56 AM ULTRASONIC SOLDERER Specimen Anatomical Collection Method Collection Time Receive d Time (Source) Location / / Volume Laterality Blood (Blood, 06/20/2020 8:08 AM 06/20/20 20 8:56 Venous) ULTRASONIC SOLDERER AM ULTRASONIC SOLDERER Naseema Gangat M.B.B.S. LAB BLOOD ADD-ON Performing Organization Address City/State/ZIP Code Phon e Number [facility] - 200 [place], [place] [address] [place] [address] Chloride (06/20/2020 8:08 AM ULTRASONIC SOLDERER) athologist Signature Chloride, S 107 98 - 107 06/20/2020 DTL mmol/L 9:56 AM ULTRASONIC SOLDERER Specimen Anatomical Collection Method Collection Time Receive d Time (Source) Location / / Volume Laterality Blood (Blood, 06/20/2020 8:08 AM 06/20/20 20 8:56 Venous) ULTRASONIC SOLDERER AM ULTRASONIC SOLDERER Naseema Gangat M.B.B.S. LAB BLOOD ADD-ON Performing Organization Address City/State/ZIP Code Phon e Number [facility] - 200 [place], [place] [address] [place] [id number] Magnesium (06/20/2020 8:08 AM ULTRASONIC SOLDERER) P athologist Signature Magnesium, S 2.0 1.7 - 2.3 06/20/2020 DTL mg/dL 9:56 AM ULTRASONIC SOLDERER Specimen Anatomical Collection Method Collection Time Receive d Time (Source) Location / / Volume Laterality Blood (Blood, 06/20/2020 8:08 AM 06/20/20 20 8:56 Venous) ULTRASONIC SOLDERER AM ULTRASONIC SOLDERER Janusz Holt.S. LAB BLOOD ADD-ON Performing Organization Address City/[facility]/ZIP Code Phon e Number [facility] - 200 [place], [place] [address] [place] [address] [place] [address] [facility] Potassium (06/20/2020 8:08 AM ULTRASONIC SOLDERER) athologist Signature Potassium, S 4.5 3.6 - 5.2 06/20/2020 DTL mmol/L 9:56 AM ULTRASONIC SOLDERER Specimen Anatomical Collection Method Collection Time Receive d Time (Source) Location / / Volume Laterality Blood (Blood, 06/20/2020 8:08 AM 06/20/20 20 8:56 Venous) ULTRASONIC SOLDERER AM ULTRASONIC SOLDERER Janusz Holt.S. LAB BLOOD ADD-ON Performing Organization Address City/State/ZIP Code Phon e Number [facility] - 200 [place], [place] [address] [place] [address] Sodium (06/20/2020 8:08 AM ULTRASONIC SOLDERER) P athologist Signature Sodium, S 140 135 - 145 06/20/2020 9:56 DTL mmol/L AM ULTRASONIC SOLDERER Specimen Anatomical Collection Method Collection Time Receive d Time (Source) Location / / Volume Laterality Blood (Blood, 06/20/2020 8:08 AM 06/20/20 20 8:56 Venous) ULTRASONIC SOLDERER AM ULTRASONIC SOLDERER Janusz ArringtonB.S. LAB BLOOD ADD-ON Performing Organization Address City/[facility]/ZIP Code Phon e Number [facility] - 200 [place], [place] [address] Alkaline Phosphatase (06/20/2020 8:08 AM ULTRASONIC SOLDERER) P athologist Signature Alkaline 38 35 - 104 06/20/2020 DTL Phosphatase, S U/L 9:56 AM ULTRASONIC SOLDERER Specimen Anatomical Collection Method Collection Time Receive d Time (Source) Location / / Volume Laterality Blood (Blood, 06/20/2020 8:08 AM 06/20/20 8:56 Venous) ULTRASONIC SOLDERER AM ULTRASONIC SOLDERER Janusz AlexandraSZahraa LAB BLOOD ADD-ON Performing Organization Address City/[facility]/ZIP Code Phon e Number [facility] - 200 [place], [place] [address] [place] [address] AST (Aspartate Aminotransferase) (06/20/2020 8:08 AM ULTRASONIC SOLDERER) [facility] Time Signature Aspartate 25 8 - 43 06/20/2020 DTL Aminotransferase U/L 9:56 AM ULTRASONIC SOLDERER (AST), S Specimen Anatomical Collection Method Collection Time Receive d Time (Source) Location / / Volume Laterality Blood (Blood, 06/20/2020 8:08 AM 06/20/20 8:56 Venous) ULTRASONIC SOLDERER AM ULTRASONIC SOLDERER Janusz AlexandraS. LAB BLOOD ADD-ON Performing Organization Address City/[facility] Phon e Number [facility] - 200 [place], [place] [address] [place] [address] ALT (Alanine Aminotransferase) (06/20/2020 8:08 AM ULTRASONIC SOLDERER) Patholo gist Method Time Signature Alanine 17 7 - 45 06/20/2020 DTL Aminotransferase U/L 9:56 AM ULTRASONIC SOLDERER (ALT), S Specimen Anatomical Collection Method Collection Time Receive d Time (Source) Location / / Volume Laterality Blood (Blood, 06/20/2020 8:08 AM 06/20/20 20 8:56 Venous) ULTRASONIC SOLDERER AM ULTRASONIC SOLDERER Janusz AlexandraSZahraa LAB BLOOD ADD-ON Performing Organization Address City/State/[facility] Phon e Number [facility] - [address] (ABNORMAL) CBC with Differential, Blood (06/20/2020 8:08 AM ULTRASONIC SOLDERER) Patholo gist Method Time Signature Hemoglobin 6.5 (L) 11.6 - 06/20/2020 DTL 15.0 g/dL 8:52 AM ULTRASONIC SOLDERER Hematocrit 21.6 (L) 35.5 - 06/20/2020 DTL 44.9 % 8:52 AM ULTRASONIC SOLDERER Erythrocytes 2.37 (L) 3.92 - 06/20/2020 DTL 5.13 8:52 AM ULTRASONIC SOLDERER x10(12)/L MCV 91.1 78.2 - 06/20/2020 DTL 97.9 fL 8:52 AM ULTRASONIC SOLDERER RBC Distrib Width 26.9 (H) 12.2 - 06/20/2020 DTL 16.1 % 8:52 AM ULTRASONIC SOLDERER Platelet Count 121 (L) 157 - 371 06/20/2020 DTL x10(9)/L 8:52 AM ULTRASONIC SOLDERER Leukocytes 2.6 (L) 3.4 - 9.6 06/20/2020 DTL x10(9)/L 9:42 AM ULTRASONIC SOLDERER Comment: Results confirmed by smear. Neutrophils SeeComment 1.56 - 6.45 x10(9)/L 06/20/2020 9:42 AM ULTRASONIC SOLDERER DTL Comment: Auto-diff results not valid. Se e manual differential. Specimen Anatomical Collection Method Collection Time Receive d Time (Source) Location / / Volume Laterality Blood (Blood, 06/20/2020 8:08 AM 06/20/20 20 8:37 Venous) ULTRASONIC SOLDERER AM ULTRASONIC SOLDERER Janusz Ardon LAB BLOOD ADD-ON Performing Organization Address City/[facility] Phon e Number [facility] - [address] [place] [address] (ABNORMAL) Protein, Total (06/13/2020 8:41 AM ULTRASONIC SOLDERER) P athologist Signature Protein, 5.9 (L) 6.3 - 7.9 06/13/2020 DTL Total, S g/dL 9:44 AM ULTRASONIC SOLDERER Specimen Anatomical Collection Method Collection Time Receive d Time (Source) Location / / Volume Laterality Blood (Blood, 06/13/2020 8:41 AM 06/13/20 9:26 Venous) ULTRASONIC SOLDERER AM ULTRASONIC SOLDERER Naseema Gangat M.B.B.S. LAB BLOOD ADD-ON Performing Organization Address City/State/ZIP Code Phon e Number [facility] - [address] [facility] Albumin (06/13/2020 8:41 AM ULTRASONIC SOLDERER) athologist Signature Albumin, S 4.3 3.5 - 5.0 06/13/2020 DTL g/dL 9:44 AM ULTRASONIC SOLDERER Specimen Anatomical Collection Method Collection Time Receive d Time (Source) Location / / Volume Laterality Blood (Blood, 06/13/2020 8:41 AM 06/13/20 9:26 Venous) ULTRASONIC SOLDERER AM ULTRASONIC SOLDERER Naseema Gangat M.B.B.S. LAB BLOOD ADD-ON Performing Organization Address City/[facility]/ZIP Code Phon e Number [facility] - [address] [place] [address] [facility] Glucose, Random (06/13/2020 8:41 AM ULTRASONIC SOLDERER) athologist Signature Glucose, S 81 70 - 140 06/13/2020 DTL mg/dL 9:44 AM ULTRASONIC SOLDERER Specimen Anatomical Collection Method Collection Time Receive d Time (Source) Location / / Volume Laterality Blood (Blood, 06/13/2020 8:41 AM 06/13/20 9:26 Venous) ULTRASONIC SOLDERER AM ULTRASONIC SOLDERER Naseema Gangat M.B.B.S. LAB BLOOD TROPONIN Performing Organization Address City/State/ZIP Code Phon e Number [facility] - [address] [place], [place] [address] [place] [address] Uric Acid (06/13/2020 8:41 AM ULTRASONIC SOLDERER) P athologist Signature Uric Acid, S 5.6 2.7 - 6.1 06/13/2020 DTL mg/dL 9:44 AM ULTRASONIC SOLDERER Specimen Anatomical Collection Method Collection Time Receive d Time (Source) Location / / Volume Laterality Blood (Blood, 06/13/2020 8:41 AM 06/13/20 9:26 Venous) ULTRASONIC SOLDERER AM ULTRASONIC SOLDERER Janusz AlexandraSZahraa LAB BLOOD ADD-ON Performing Organization Address City/[facility] Phon e Number [facility] - [address] [place] [address] [facility] (ABNORMAL) Creatinine with Estimated GFR (06/13/2020 8:41 AM ULTRASONIC SOLDERER) Analysis Performed At [facility] Signature Creatinine 1.09 (H) 0.59 - 06/13/2020 DTL 1.04 mg/dL 9:44 AM ULTRASONIC SOLDERER eGFR-Non 59 (L) >=60 06/13/2020 DTL Black/ mL/min/BSA 9:44 AM ULTRASONIC SOLDERER [place] Comment: ----ADDITIONAL INFORMATION---- Estimated GFR calculated using the 2009 CKD_EPI creatinine equation. eGFR-Black/ 67 >=60 mL/min/BSA 2019 9:44 AM ULTRASONIC SOLDERER DTL Comment: ----ADDITIONAL INFORMATION---- Estimated GFR calculated using the 2009 CKD_EPI creatinine equation. Specimen Anatomical Collection Method Collection Time Receive d Time (Source) Location / / Volume Laterality Blood (Blood, 06/13/2020 8:41 AM 06/13/20 9:26 Venous) ULTRASONIC SOLDERER AM ULTRASONIC SOLDERER Janusz ArringtonB.S. LAB BLOOD ADD-ON Performing Organization Address City/[facility] Phon e Number [facility] - [address] (ABNORMAL) BUN (Blood Urea Nitrogen) (06/13/2020 8:41 AM ULTRASONIC SOLDERER) P athologist Signature BUN (Blood Urea 25 (H) 6 - 21 06/13/2020 DTL Nitrogen), S mg/dL 9:44 AM ULTRASONIC SOLDERER Specimen Anatomical Collection Method Collection Time Receive d Time (Source) Location / / Volume Laterality Blood (Blood, 06/13/2020 8:41 AM 06/13/20 9:26 Venous) ULTRASONIC SOLDERER AM ULTRASONIC SOLDERER Naseema Gangat M.B.B.S. LAB BLOOD ADD-ON Performing Organization Address City/State/ZIP Code Phon e Number [facility] - [address] [place], [place] [address] [place] [address] Bilirubin, Total (06/13/2020 8:41 AM ULTRASONIC SOLDERER) P athologist Signature Bilirubin, 0.5 <=1.2 mg/dL 06/13/2020 DT Total, S 9:44 AM ULTRASONIC SOLDERER Specimen Anatomical Collection Method Collection Time Receive d Time (Source) Location / / Volume Laterality Blood (Blood, 06/13/2020 8:41 AM 06/13/20 9:26 Venous) ULTRASONIC SOLDERER AM ULTRASONIC SOLDERER Naseema Gangat M.B.B.S. LAB BLOOD ADD-ON Performing Organization Address City/State/ZIP Code Phon e Number [facility] - [address] Calcium, Total (06/13/2020 8:41 AM ULTRASONIC SOLDERER) athologist Signature Calcium, Total, 8.8 8.6 - 10.0 06/13/2020 DTL S mg/dL 9:44 AM ULTRASONIC SOLDERER Specimen Anatomical Collection Method Collection Time Receive d Time (Source) Location / / Volume Laterality Blood (Blood, 06/13/2020 8:41 AM 06/13/20 20 9:26 Venous) ULTRASONIC SOLDERER AM ULTRASONIC SOLDERER Naseema Gangat M.B.B.S. LAB BLOOD ADD-ON Performing Organization Address City/State/ZIP [facility] Phon e Number [facility] - [address] [place], [place] [address] [place] [id number] [place] [address] (ABNORMAL) Chloride (06/13/2020 8:41 AM ULTRASONIC SOLDERER) P athologist Signature Chloride, S 108 (H) 98 - 107 06/13/2020 DTL mmol/L 9:44 AM ULTRASONIC SOLDERER Specimen Anatomical Collection Method Collection Time Receive d Time (Source) Location / / Volume Laterality Blood (Blood, 06/13/2020 8:41 AM 06/13/20 9:26 Venous) ULTRASONIC SOLDERER AM ULTRASONIC SOLDERER Nasjonathan Mcdonaldgat M.B.B.S. LAB BLOOD ADD-ON Performing Organization Address City/State/ZIP Code Phon e Number [facility] - [address] Magnesium (06/13/2020 8:41 AM ULTRASONIC SOLDERER) athologist Signature Magnesium, S 2.1 1.7 - 2.3 06/13/2020 DTL mg/dL 9:44 AM ULTRASONIC SOLDERER Specimen Anatomical Collection Method Collection Time Receive d Time (Source) Location / / Volume Laterality Blood (Blood, 06/13/2020 8:41 AM 06/13/20 9:26 Venous) ULTRASONIC SOLDERER AM ULTRASONIC SOLDERER Janusz Mcdonaldgat M.B.B.S. LAB BLOOD ADD-ON Performing Organization Address City/State/ZIP Code Phon e Number [facility] - [address] Potassium (06/13/2020 8:41 AM ULTRASONIC SOLDERER) athologist Signature Potassium, S 5.1 3.6 - 5.2 06/13/2020 DTL mmol/L 9:44 AM ULTRASONIC SOLDERER Specimen Anatomical Collection Method Collection Time Receive d Time (Source) Location / / Volume Laterality Blood (Blood, 06/13/2020 8:41 AM 06/13/20 9:26 Venous) ULTRASONIC SOLDERER AM ULTRASONIC SOLDERER Naseema Gangat M.B.B.S. LAB BLOOD ADD-ON Performing Organization Address City/State/ZIP Code Phon e Number [facility] - [address] [place], [place] [address] [address] [facility] [place], [place] [id number] [place] [address] Sodium (06/13/2020 8:41 AM ULTRASONIC SOLDERER) athologist Signature Sodium, S 142 135 - 145 06/13/2020 9:44 DTL mmol/L AM ULTRASONIC SOLDERER Specimen Anatomical Collection Method Collection Time Receive d Time (Source) Location / / Volume Laterality Blood (Blood, 06/13/2020 8:41 AM 06/13/20 9:26 Venous) ULTRASONIC SOLDERER AM ULTRASONIC SOLDERER Nasjonathan Mcdonaldgat M.B.B.S. LAB BLOOD ADD-ON Performing Organization Address City/[facility]/ZIP Code Phon e Number [facility] - [address] [place], [place] [address] [place] [address] [facility] (ABNORMAL) Alkaline Phosphatase (06/13/2020 8:41 AM ULTRASONIC SOLDERER) P athologist Signature Alkaline 33 (L) 35 - 104 06/13/2020 DTL Phosphatase, S U/L 9:44 AM ULTRASONIC SOLDERER Specimen Anatomical Collection Method Collection Time Receive d Time (Source) Location / / Volume Laterality Blood (Blood, 06/13/2020 8:41 AM 06/13/20 9:26 Venous) ULTRASONIC SOLDERER AM ULTRASONIC SOLDERER Nasjonathan Mcdonaldgat M.B.B.S. LAB BLOOD ADD-ON Performing Organization Address City/State/ZIP [facility] Phon e Number [facility] - [address] AST (Aspartate Aminotransferase) (06/13/2020 8:41 AM ULTRASONIC SOLDERER) Patholo gist Method Time Signature Aspartate 25 8 - 43 06/13/2020 DTL Aminotransferase U/L 9:44 AM ULTRASONIC SOLDERER (AST), S Specimen Anatomical Collection Method Collection Time Receive d Time (Source) Location / / Volume Laterality Blood (Blood, 06/13/2020 8:41 AM 06/13/20 9:26 Venous) ULTRASONIC SOLDERER AM ULTRASONIC SOLDERER Naseema Gangat M.B.B.S. LAB BLOOD ADD-ON Performing Organization Address City/State/ZIP Code Phon e Number [facility] - [address] [place], [place] [address] [place] [address] ALT (Alanine Aminotransferase) (06/13/2020 8:41 AM ULTRASONIC SOLDERER) [facility] Method Time Signature Alanine 14 7 - 45 06/13/2020 DTL Aminotransferase U/L 9:44 AM ULTRASONIC SOLDERER (ALT), S Specimen Anatomical Collection Method Collection Time Receive d Time (Source) Location / / Volume Laterality Blood (Blood, 06/13/2020 8:41 AM 06/13/20 9:26 Venous) ULTRASONIC SOLDERER AM ULTRASONIC SOLDERER Janusz AlexandraSZahraa LAB BLOOD ADD-ON Performing Organization Address City/State/ZIP Code Phon e Number [facility] - [address] [place], [place] [address] [facility] [place] [address] [facility] [address] (ABNORMAL) CBC with Differential, Blood (06/13/2020 8:41 AM ULTRASONIC SOLDERER) [facility] Method Time Signature Hemoglobin 6.5 (L) 11.6 - 06/13/2020 DTL 15.0 g/dL 9:27 AM ULTRASONIC SOLDERER Hematocrit 22.7 (L) 35.5 - 06/13/2020 DTL 44.9 % 9:27 AM ULTRASONIC SOLDERER Erythrocytes 2.40 (L) 3.92 - 06/13/2020 DTL 5.13 9:27 AM ULTRASONIC SOLDERER x10(12)/L MCV 94.6 78.2 - 06/13/2020 DTL 97.9 fL 9:27 AM ULTRASONIC SOLDERER RBC Distrib Width 27.3 (H) 12.2 - 06/13/2020 DTL 16.1 % 9:27 AM ULTRASONIC SOLDERER Platelet Count 106 (L) 157 - 371 06/13/2020 DTL x10(9)/L 10:23 AM ULTRASONIC SOLDERER Leukocytes 2.9 (L) 3.4 - 9.6 06/13/2020 DTL x10(9)/L 10:23 AM ULTRASONIC SOLDERER Comment: Results confirmed by smear. Neutrophils SeeComment 1.56 - 6.45 x10(9)/L 06/13/2020 10:23 AM ULTRASONIC SOLDERER DTL Comment: Auto-diff results not valid. Se e manual differential. Specimen Anatomical Collection Method Collection Time Receive d Time (Source) Location / / Volume Laterality Blood (Blood, 06/13/2020 8:41 AM 06/13/20 9:16 Venous) ULTRASONIC SOLDERER AM ULTRASONIC SOLDERER Janusz AlexandraS. LAB BLOOD ADD-ON Performing Organization Address City/[facility]/ZIP [facility] Phon e Number [facility] - [address] [place], [place] [address] [place] [phone] Test, Qualitative, Urine (06/06/2020 7:51 AM ULTRASONIC SOLDERER) athologist Signature Negative 06/06/2020 TUNDE Test, U 8:27 AM ULTRASONIC SOLDERER Specimen Anatomical Collection Method Collection Time Receive d Time (Source) Location / / Volume Laterality Urine (Urine, 06/06/2020 7:51 AM 06/06/20 7:51 Clean Catch) ULTRASONIC SOLDERER AM ULTRASONIC SOLDERER Janusz Ardon LAB URINE ORDERABLES Performing Organization Address [facility] [place]/[facility] Phon e Number [facility] - [address] [place], [place] [address] [place] [address] Protein, Total (06/06/2020 7:20 AM ULTRASONIC SOLDERER) athologist Signature Protein, Total, 6.3 6.3 - 7.9 06/06/2020 DTL S g/dL 8:35 AM ULTRASONIC SOLDERER Specimen Anatomical Collection Method Collection Time Receive d Time (Source) Location / / Volume Laterality Blood (Blood, 06/06/2020 7:20 AM 06/06/20 8:14 Venous) ULTRASONIC SOLDERER AM ULTRASONIC SOLDERER Janusz Ardon LAB BLOOD ADD-ON Performing Organization Address City/[facility] Phon e Number [facility] - [address] [place], [place] [address] [place] [address] Albumin (06/06/2020 7:20 AM ULTRASONIC SOLDERER) athologist Signature Albumin, S 4.5 3.5 - 5.0 06/06/2020 DTL g/dL 8:35 AM ULTRASONIC SOLDERER Specimen Anatomical Collection Method Collection Time Receive d Time (Source) Location / / Volume Laterality Blood (Blood, 06/06/2020 7:20 AM 06/06/20 8:14 Venous) ULTRASONIC SOLDERER AM ULTRASONIC SOLDERER Janusz ArringtonB.S. LAB BLOOD ADD-ON Performing Organization Address City/[facility]/ZIP [facility] Phon e Number [facility] - [address] Glucose, Random (06/06/2020 7:20 AM ULTRASONIC SOLDERER) P athologist Signature Glucose, S 93 70 - 140 06/06/2020 DTL mg/dL 8:35 AM ULTRASONIC SOLDERER Specimen Anatomical Collection Method Collection Time Receive d Time (Source) Location / / Volume Laterality Blood (Blood, 06/06/2020 7:20 AM 06/06/20 8:14 Venous) ULTRASONIC SOLDERER AM ULTRASONIC SOLDERER Janusz ArringtonB.S. LAB BLOOD TROPONIN Performing Organization Address City/[facility]/ZIP [facility] Phon e Number [facility] - [address] (ABNORMAL) Uric Acid (06/06/2020 7:20 AM ULTRASONIC SOLDERER) P athologist Signature Uric Acid, S 8.5 (H) 2.7 - 6.1 06/06/2020 DTL mg/dL 8:35 AM ULTRASONIC SOLDERER Specimen Anatomical Collection Method Collection Time Receive d Time (Source) Location / / Volume Laterality Blood (Blood, 06/06/2020 7:20 AM 06/06/20 20 8:14 Venous) ULTRASONIC SOLDERER AM ULTRASONIC SOLDERER Janusz ArringtonB.S. LAB BLOOD ADD-ON Performing Organization Address City/State/ZIP Code Phon e Number [facility] - [address] (ABNORMAL) Creatinine with Estimated GFR (06/06/2020 7:20 AM ULTRASONIC SOLDERER) Analysis Performed At Patho logist Time Signature Creatinine 1.20 (H) 0.59 - 06/06/2020 DTL 1.04 mg/dL 8:35 AM ULTRASONIC SOLDERER eGFR-Non 52 (L) >=60 06/06/2020 DTL Black/ mL/min/BSA 8:35 AM ULTRASONIC SOLDERER [place] Comment: ----ADDITIONAL INFORMATION---- Estimated GFR calculated using the 2009 CKD_EPI creatinine equation. eGFR-Black/ 60 >=60 mL/min/BSA 2019 8:35 AM ULTRASONIC SOLDERER DTL Comment: ----ADDITIONAL INFORMATION---- Estimated GFR calculated using the 2009 CKD_EPI creatinine equation. Specimen Anatomical Collection Method Collection Time Receive d Time (Source) Location / / Volume Laterality Blood (Blood, 06/06/2020 7:20 AM 06/06/20 8:14 Venous) ULTRASONIC SOLDERER AM ULTRASONIC SOLDERER Janusz ArringtonB.S. LAB BLOOD ADD-ON Performing Organization Address City/[facility] Phon e Number [facility] - [address] [place] [address] (ABNORMAL) BUN (Blood Urea Nitrogen) (06/06/2020 7:20 AM ULTRASONIC SOLDERER) athologist Signature BUN (Blood Urea 28 (H) 6 - 21 06/06/2020 DTL Nitrogen), S mg/dL 8:35 AM ULTRASONIC SOLDERER Specimen Anatomical Collection Method Collection Time Receive d Time (Source) Location / / Volume Laterality Blood (Blood, 06/06/2020 7:20 AM 06/06/20 8:14 Venous) ULTRASONIC SOLDERER AM ULTRASONIC SOLDERER Janusz Higgins.B.S. LAB BLOOD ADD-ON Performing Organization Address City/[facility] Phon e Number [facility] - [address] Bilirubin, Total (06/06/2020 7:20 AM ULTRASONIC SOLDERER) P athologist Signature Bilirubin, 0.7 <=1.2 mg/dL 06/06/2020 DT Total, S 8:35 AM ULTRASONIC SOLDERER Specimen Anatomical Collection Method Collection Time Receive d Time (Source) Location / / Volume Laterality Blood (Blood, 06/06/2020 7:20 AM 06/06/20 8:14 Venous) ULTRASONIC SOLDERER AM ULTRASONIC SOLDERER Janusz ArringtonB.S. LAB BLOOD ADD-ON Performing Organization Address City/State/[facility] Phon e Number [facility] - [id number] [place] [address] 200 [facility] Calcium, Total (06/06/2020 7:20 AM ULTRASONIC SOLDERER) athologist Signature Calcium, Total, 8.8 8.6 - 10.0 06/06/2020 DTL S mg/dL 8:35 AM ULTRASONIC SOLDERER Specimen Anatomical Collection Method Collection Time Receive d Time (Source) Location / / Volume Laterality Blood (Blood, 06/06/2020 7:20 AM 06/06/20 20 8:14 Venous) ULTRASONIC SOLDERER AM ULTRASONIC SOLDERER Naseema Gangat M.B.B.S. LAB BLOOD ADD-ON Performing Organization Address City/[facility] Phon e Number [facility] - [address] [address] [place] [address] [facility] Chloride (06/06/2020 7:20 AM ULTRASONIC SOLDERER) athologist Signature Chloride, S 104 98 - 107 06/06/2020 DTL mmol/L 8:35 AM ULTRASONIC SOLDERER Specimen Anatomical Collection Method Collection Time Receive d Time (Source) Location / / Volume Laterality Blood (Blood, 06/06/2020 7:20 AM 06/06/20 20 8:14 Venous) ULTRASONIC SOLDERER AM ULTRASONIC SOLDERER Naseema Gangat M.B.B.S. LAB BLOOD ADD-ON Performing Organization Address City/State/ZIP Code Phon e Number [facility] - [address] Magnesium (06/06/2020 7:20 AM ULTRASONIC SOLDERER) athologist Signature Magnesium, S 2.3 1.7 - 2.3 06/06/2020 DTL mg/dL 8:35 AM ULTRASONIC SOLDERER Specimen Anatomical Collection Method Collection Time Receive d Time (Source) Location / / Volume Laterality Blood (Blood, 06/06/2020 7:20 AM 06/06/20 20 8:14 Venous) ULTRASONIC SOLDERER AM ULTRASONIC SOLDERER Naseema Gangat M.B.B.S. LAB BLOOD ADD-ON Performing Organization Address City/[facility]/ZIP Code Phon e Number [facility] - [address] Potassium (06/06/2020 7:20 AM ULTRASONIC SOLDERER) P athologist Signature Potassium, S 5.1 3.6 - 5.2 06/06/2020 DTL mmol/L 8:35 AM ULTRASONIC SOLDERER Specimen Anatomical Collection Method Collection Time Receive d Time (Source) Location / / Volume Laterality Blood (Blood, 06/06/2020 7:20 AM 06/06/20 8:14 Venous) ULTRASONIC SOLDERER AM ULTRASONIC SOLDERER Janusz Holt.S. LAB BLOOD ADD-ON Performing Organization Address City/[facility]/ZIP Code Phon e Number [facility] - [address] Sodium (06/06/2020 7:20 AM ULTRASONIC SOLDERER) athologist Signature Sodium, S 139 135 - 145 06/06/2020 8:35 DTL mmol/L AM ULTRASONIC SOLDERER Specimen Anatomical Collection Method Collection Time Receive d Time (Source) Location / / Volume Laterality Blood (Blood, 06/06/2020 7:20 AM 06/06/20 8:14 Venous) ULTRASONIC SOLDERER AM ULTRASONIC SOLDERER Janusz Holt.S. LAB BLOOD ADD-ON Performing Organization Address City/[facility]/ZIP Code Phon e Number [facility] - [address] (ABNORMAL) Alkaline Phosphatase (06/06/2020 7:20 AM ULTRASONIC SOLDERER) P athologist Signature Alkaline 34 (L) 35 - 104 06/06/2020 DTL Phosphatase, S U/L 8:35 AM ULTRASONIC SOLDERER Specimen Anatomical Collection Method Collection Time Receive d Time (Source) Location / / Volume Laterality Blood (Blood, 06/06/2020 7:20 AM 06/06/20 20 8:14 Venous) ULTRASONIC SOLDERER AM ULTRASONIC SOLDERER Janusz ArringtonB.SZahraa LAB BLOOD ADD-ON Performing Organization Address City/[facility]/ZIP [facility] Phon e Number [facility] - [address] [place], [place] [address] [place], [place] [id number] [place] [address] AST (Aspartate Aminotransferase) (06/06/2020 7:20 AM ULTRASONIC SOLDERER) [facility] Method Time Signature Aspartate 29 8 - 43 06/06/2020 DTL Aminotransferase U/L 8:35 AM ULTRASONIC SOLDERER (AST), S Specimen Anatomical Collection Method Collection Time Receive d Time (Source) Location / / Volume Laterality Blood (Blood, 06/06/2020 7:20 AM 06/06/20 8:14 Venous) ULTRASONIC SOLDERER AM ULTRASONIC SOLDERER Janusz AlexandraSZahraa LAB BLOOD ADD-ON Performing Organization Address City/[facility]/ZIP Code Phon e Number [facility] - [address] [place] [address] [address] [facility] [place] [address] ALT (Alanine Aminotransferase) (06/06/2020 7:20 AM ULTRASONIC SOLDERER) [facility] Method Time Signature Alanine 17 7 - 45 06/06/2020 DTL Aminotransferase U/L 8:35 AM ULTRASONIC SOLDERER (ALT), S Specimen Anatomical Collection Method Collection Time Receive d Time (Source) Location / / Volume Laterality Blood (Blood, 06/06/2020 7:20 AM 06/06/20 20 8:14 Venous) ULTRASONIC SOLDERER AM ULTRASONIC SOLDERER Janusz AlexandraSZahraa LAB BLOOD ADD-ON Performing Organization Address City/State/[facility] Code Phon e Number [facility] - [address] [place], [place] [address] [address] [place], [place] [id number] [place] [address] (ABNORMAL) CBC with Differential, Blood (06/06/2020 7:20 AM ULTRASONIC SOLDERER) [facility] Method Time Signature Hemoglobin 7.3 (L) 11.6 - 06/06/2020 DTL 15.0 g/dL 8:03 AM ULTRASONIC SOLDERER Hematocrit 25.1 (L) 35.5 - 06/06/2020 DTL 44.9 % 8:03 AM ULTRASONIC SOLDERER Erythrocytes 2.70 (L) 3.92 - 06/06/2020 DTL 5.13 8:03 AM ULTRASONIC SOLDERER x10(12)/L MCV 93.0 78.2 - 06/06/2020 DTL 97.9 fL 8:03 AM ULTRASONIC SOLDERER RBC Distrib Width 27.9 (H) 12.2 - 06/06/2020 DTL 16.1 % 8:03 AM ULTRASONIC SOLDERER Platelet Count 106 (L) 157 - 371 06/06/2020 DTL x10(9)/L 8:56 AM ULTRASONIC SOLDERER Leukocytes 2.9 (L) 3.4 - 9.6 06/06/2020 DTL x10(9)/L 9:00 AM ULTRASONIC SOLDERER Comment: Results confirmed by smear. Neutrophils SeeComment 1.56 - 6.45 x10(9)/L 06/06/2020 9:00 AM ULTRASONIC SOLDERER DTL Comment: Auto-diff results not valid. Se e manual differential. Specimen Anatomical Collection Method Collection Time Receive d Time (Source) Location / / Volume Laterality Blood (Blood, 06/06/2020 7:20 AM 06/06/20 20 7:54 Venous) ULTRASONIC SOLDERER AM ULTRASONIC SOLDERER Janusz Ardon LAB BLOOD ADD-ON Performing Organization Address City/State/ZIP Code Phon e Number [facility] - [address] [place], [place] [address] [facility] [place] [address] [facility] [address] documented in this encounter Visit Diagnoses Diagnosis Myelofibrosis (HCC) - Primary documented in this encounter
--- OUTSIDE RECORDS SUMMARY | 2022-05-02 12:12 | XMS_ITS | Encounter Summary ---
:1970 Author Organization [facility] Address [address] [place] [id number] Care Team Providers Name Role Phone Unavailable Primary Care Provider Unavailable Encounter Details Date Type Department Care Team Description 06/07/2020 Orders Only Division of Hematology in [place], [place] M.B.B.S. [address] [facility] [address] [place] [id number] [place], [place] [phone] (Wo rk) Social History Tobacco Use Types Packs/Day Years Used Date Smoking Tobacco: Former Smokeless Tobacco: Never Sex Assigned at Date Recorded Female 07/24/2021 11:03 AM [employer] documented as of 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
--- OUTSIDE RECORDS SUMMARY | 2022-05-02 12:12 | XMS_ITS | Encounter Summary ---
:1970 Author Organization [facility] Address [address] [place] [address] Care Team Providers Name Role Phone Unavailable Primary Care Provider Unavailable Reason for Visit Reason Comments Need Order Encounter Details Date Type Department Care Team Description 06/02/2020 Clinical Communication Division of Hematology Janusz Govea Need Order in [facility] milton M.Cain.B.S. 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 I called chemo and they don't see the order either? OOR STUDIES DIRECTOR Telephone Encounter - Dena Junior R.N. - 06/02/2020 5:17 PM OUTDOOR STUDIES DIRECTOR Please place orders. Thank you. Dena OOR STUDIES DIRECTOR Telephone Encounter - Keon Maher - 06/02/2020 3:34 PM CST Catrachito, Timi called and they would like to have a chemo education visit scheduled for Wednesday 06/06. Pleaseput through order, thanks. OOR STUDIES DIRECTOR documented in 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
--- OUTSIDE RECORDS SUMMARY | 2022-05-02 12:12 | XMS_ITS | Encounter Summary ---
:1970 Author Organization [facility] Address [address] [place] [address] Care Team Providers Name Role Phone Unavailable Primary Care Provider Unavailable Reason for Visit Appointment Request (Routine) - Closed Specialty Diagnoses / Procedures Referred By Contact Refer red To Contact Hematology Oncology Referral ID Status Reason Start Date Expiration Date Visits Requ ested Visits Authorized [id number] Closed 06/02/2020 06/02/2021 1 1 Encounter Details Date Type Department Care Team Description 06/02/2020 Admin Visit Department of Oncology in [place], [place] [address] [place] [phone] Social History Tobacco Use Types Packs/Day Years Used Date Smoking Tobacco: Former Smokeless Tobacco: Never Sex Assigned at Date Recorded 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
--- OUTSIDE RECORDS SUMMARY | 2022-05-02 12:12 | XMS_ITS | Encounter Summary ---
:1970 Author Organization [facility] Address [address] [place] [address] Care Team Providers Name Role Phone Unavailable Primary Care Provider Unavailable Reason for Visit Episode Based Medications (Routine) - Closed Specialty Diagnoses / Procedures Referred By Contact Refer red To Contact Medical Oncology / Diagnoses Myelofibrosis (HCC) Janusz Govea Rst Inf Onc [facility] Oncology Procedures ONCBCN INFUSION APPOINTMENT REQUEST 09 ONC THER INF M.B.B.S. 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 encounter Last Filed Vital Signs Vital Sign Reading Time Taken Comments Blood Pressure 101/39 06/09/2020 10:03 AM FORKLIFT MECHANIC Pulse 75 06/09/2020 10:03 AM FORKLIFT MECHANIC Temperature 36.7 ??C (98.1 ??F) 06/09/2020 10:03 AM FORKLIFT MECHANIC Respiratory Rate 18 06/09/2020 10:03 AM FORKLIFT MECHANIC Oxygen Saturation - - Inhaled Oxygen Concentration - - Weight 92.4 kg (203 lb 13 oz) 06/09/2020 9:09 AM FORKLIFT MECHANIC Height - - Body Mass Index 31.43 06/06/2020 8:02 AM FORKLIFT MECHANIC documented in 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 Administered Medications Inactive Administered Medications - up to 3 most recent administrations Medication Order MAR Action Action Date Dose Rate Site Research IRB [id number] New Bag 06/09/2020 9:57 AM FORKLIFT MECHANIC 850 mg 5 00 mL/hr 850 mg in NaCl 0.9% (non-PVC) 1,085 mL IVPB 850 mg (rounded from 849.09 mg = 9.3 mg/kg ? 91.3 kg Order-specific weight), intravenous, at 500 mL/hr, Once, On Fri06/09/20 at 0915, For 1 dose, CSTDs cannot be used. Flush with 30ml at IV site following completion of . Monitor BP (pre dose & post dose), HR, temp, resp (pre-dose and as clinically indicated). Administer using 1.2 micron filter tubing via a peripheral or central line. sodium chloride (flush) 0.9 % injection 30 mL Given 06/09/2020 12:47 PM FORKLIFT MECHANIC 30 mL 30 mL, intravenous, Once, On Fri06/09/20 at 0915, For 1 dose, Post chemotherapy flush documented in this encounter
--- OUTSIDE RECORDS SUMMARY | 2022-05-02 12:12 | XMS_ITS | Encounter Summary ---
:1970 Author Organization [facility] Address [address] [place] [address] Care Team Providers Name Role Phone Unavailable Primary Care Provider Unavailable Reason for Referral Outpatient (Routine) - Closed Specialty Diagnoses / Procedures Referred By Contact Refer red To Contact Radiology Diagnoses Myelofibrosis (HCC) Janusz Govea M.B.B.S. 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 [place] Procedures CT Abdomen Pelvis with IV Contrast CT Abdomen Pelvis without and with IV Contrast CA CT ABD&PELVIS WO/W CNTRST [address] [place] [phone] Referral ID Status Reason Start Date Expiration Date Visits Requ ested Visits Authorized [id number] Closed 06/02/2020 06/02/2021 1 1 Encounter Details Date Type Department Care Team Description 06/05/2020 Hospital Encounter Department of [place] Govea ([facility]) Radiology, [facility], in M.B.B.S. 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 documented as of this encounter Nursing Notes Jenae Rangel R.N. - 06/05/2020 1:30 PM CST A review of the patients current medications was completed under the context of radiology care priorto contrast/medication administration. NIUM PLANT OPERATOR documented in this encounter Plan of Treatment Not on filedocumented as of this encounter Procedures Procedure Name Priority Date/Time Associated Diagnosis Comme nts CT ABDOMEN RAD - Routine 06/05/2020 1:48 Myelofibrosis (HCC) Resu lts for this PELVIS WITH IV (most inpatients PM SELENIUM PLANT OPERATOR procedure are in CONTRAST and all the results outpatients) section. documented in this encounter Results CT Abdomen Pelvis with IV Contrast (06/05/2020 1:48 PM SELENIUM PLANT OPERATOR) Anatomical Region Laterality Modality Abdomen, Pelvis, Abdominal RST LOS, N/A Comp uted Tomography, Computed Abdominal ARZ LOS, Abdominal FLA LOS Esa ography Specimen (Source) Anatomical Collection Method Collection Time Re ceived Time Location / / Volume Laterality 06/05/2020 3:28 PM SELENIUM PLANT OPERATOR Impressions 06/05/2020 4:38 PM SELENIUM PLANT OPERATOR 1. Marked splenomegaly, with the spleen measuring 33 cm. 2. Small splenic infarct in the anteroin ferior portion of the spleen. 3. Indeterminate 1.5 cm left adrenal mas s, likely an adenoma. Narrative 06/05/2020 4:38 PM SELENIUM PLANT OPERATOR EXAM: ??CT ABDOMEN PELVIS WITH IV CONTRAST COMPARISON: ??Partially completed MR wade callahan 06/01/2020 FINDINGS: ??Marked splenomegaly with the spleen [...] adrenal mas s, likely an adenoma. Janusz Ardon [facility] PROCEDURES documented in this encounter Visit Diagnoses Diagnosis Myelofibrosis (HCC) documented in this encounter Administered Medications Inactive Administered Medications - up to 3 most recent administrations Medication Order MAR Action Action Date Dose Rate Site iohexoL 300 mg iodine/mL solution Given 06/05/2020 1:36 PM SELENIUM PLANT OPERATOR 1 40 mL 1-200 mL (OMNIPAQUE) 1-200 mL, intravenous, Once in imaging, contrast, Starting on 06/05/20 at 1308, For 1 dose, Imaging Protocol Orders, Dose per Radiant Medication Guidelines sodium chloride (PF) 0.9 % injection 1-1 00 mL Given 06/05/2020 1:36 PM SELENIUM PLANT OPERATOR 50 mL 1-100 mL, intravenous, Once, On 06/05/20 at 1315, For 1 dose, Imaging Protocol Orders documented in this encounter
--- OUTSIDE RECORDS SUMMARY | 2022-05-02 12:12 | XMS_ITS | Encounter Summary ---
:1970 Author Organization [facility] Address [address] [place] [address] Care Team Providers Name Role Phone Unavailable Primary Care Provider Unavailable Encounter Details Date Type Department Care Team Description 06/09/2020 Orders Only Division of [facility], Myelofibrosis ( HCC) Hematology in [place] (Primary Dx) [address] [place] [phone] Social History Tobacco Use Types Packs/Day Years Used Date Smoking Tobacco: Former Smokeless Tobacco: Never Sex Assigned at Date Recorded Female 07/24/2021 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
--- OUTSIDE RECORDS SUMMARY | 2022-05-02 12:12 | XMS_ITS | Encounter Summary ---
:1970 Author Organization [facility] Address [address] [place] [address] Care Team Providers Name Role Phone Unavailable Primary Care Provider Unavailable Encounter Details Date Type Department Care Team Description 06/01/2020 Hospital Encounter Outpatient Procedure Janusz Govea M.B.B.S. 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 documented in this encounter Results LA DX BONE MARROW BX & ASPIR (06/01/2020 2:30 PM SALES AND SERVICE ASSOCIATE) Specimen (Source) Anatomical Location Collection Method / Collectio n Time Received Time / Laterality Volume Bone Marrow Narrative MMODAL - 06/01/2020 2:30 PM SALES AND SERVICE ASSOCIATE Kenneth Bridges R.N. ? 06/01/2020 ??2:51 PM Biopsy Bone Marrow Date/Time: 06/01/2020 2:50 PM Performed by: Kenneth Bridges R.N. Authorized by: Janusz Govea M.B.BZahraaSZahraa Care team members present 1. Ronny Natarajan MLS([facility]) PROCEDURE DETAILS Procedure: ??Bone Marrow aspiration and Bone Marrow biopsy Bone marrow biopsy Laterality: ??Left Location of biopsy: ??Posterior iliac cr est Patient position: ??Side lying Type of Needle: ??Manual bone marrow bio psy needle Findings: ??Aspirate obtained with spicu les noted, fluid obtained and slides obtained Bone marrow aspiration Aspirate volume (mL): ??18 CONSENT Consent obtained: written UNIVERSAL PROTOCOL All [...] scale: ??0/10 Complications: no apparent complications ?? Post-procedure instructions: ??Post-proc edure activity instructions provided COMMENTS Lidocaine 1% 200mg given. ??Attempt x3 w ith aspirate needle. ??Touch preps made with biopsy. 0221 Bone Marrow Examination pamphlet provided. Janusz Ardon PROCEDURE/MINOR SURGICAL ORD ERABLES Performing Organization Address City/State/ZIP Code Phon e Number MMODAL MMODAL NA documented in this encounter Visit Diagnoses Not on filedocumented in this encounter
--- OUTSIDE RECORDS SUMMARY | 2022-05-02 12:12 | XMS_ITS | Encounter Summary ---
:1970 Author Organization [facility] Address [address] [place] [address] Care Team Providers Name Role Phone Unavailable Primary Care Provider Unavailable Reason for Referral Outpatient (Routine) - Closed Specialty Diagnoses / Procedures Referred By Contact Refer red To Contact Hematology Oncology Diagnoses [facility]elofibrosis ([facility]) [facility]raa [address] [place] [phone] Referral ID Status Reason Start Date Expiration Date Visits Requ ested Visits Authorized [id number] Closed 06/02/2020 06/02/2021 1 1 Scheduling Instructions Please schedule with Dr. 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
--- OUTSIDE RECORDS SUMMARY | 2022-05-02 12:12 | XMS_ITS | Encounter Summary ---
:1970 Author Organization [facility] Address [address] [place] [address] Care Team Providers Name Role Phone Unavailable Primary Care Provider Unavailable Reason for Referral Outpatient (Routine) - Closed Specialty Diagnoses / Procedures Referred By Contact Refer red To Contact Diagnoses Myelofibrosis (HCC) Janusz Govea M.B.B.S. [facility] Procedures ECG [address] [place] [phone] Referral ID Status Reason Start Date Expiration Date Visits Requ ested Visits Authorized [id number] Closed 06/06/2020 06/06/2021 1 1 R CUTTER Encounter Details Date Type Department Care Team Description 06/06/2020 Orders Only Division of Hematology Janusz Govea M yelofibrosis (HCC) in [facility] M.B.B.S. 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 documented as of this encounter Plan of Treatment Not on filedocumented as of this encounter Results ECG 12 Lead (06/06/2020 8:51 AM UNDER CUTTER) P athologist Signature Ventricular Rate 72 BPM MUSE ECG/Min VA Interval 156 ms MUSE QRSD Interval 82 ms MUSE QT Interval 408 ms MUSE QTC Interval 446 ms MUSE P [place] 8 degrees MUSE R [place] 25 degrees MUSE T Wave [place] 42 degrees MUSE Specimen Anatomical Collection Method Collection Time Receive d Time (Source) Location / / Volume Laterality 06/06/2020 8:51 AM 0 9:08 UNDER CUTTER AM UNDER CUTTER Impressions MUSE - 06/06/2020 9:08 AM UNDER CUTTER Normal sinus rhythm Normal ECG When compared with ECG of 25-MAY-2020 11 :29, Premature atrial complexes are no longer present T waves have changed Reviewed by REG Candelario Narrative This result has an attachment that is no t available. Procedure Note Kwesi Castillo Jr., M.D. - 06/06/2020For matting of this note might be different from the original. IMPRESSION: Normal sinus rhythm Normal ECG When compared with ECG of 25-MAY-2020 11 :29, Premature atrial complexes are no longer present T waves have changed Reviewed by REG Candelario Janusz AlexandraSZahraa ECG ORDERABLES Performing Organization Address City/State/ZIP Code Phon e Number MUSE MUSE NA documented in this encounter Visit Diagnoses Diagnosis Myelofibrosis (HCC) - Primary documented in this encounter
--- OUTSIDE RECORDS SUMMARY | 2022-05-02 12:12 | XMS_ITS | Encounter Summary ---
:1970 Author Organization [facility] Address [address] [place] [address] Care Team Providers Name Role Phone Unavailable Primary Care Provider Unavailable Reason for Visit Episode Based Medications (Routine) - Closed Specialty Diagnoses / Procedures Referred By Contact Refer red To Contact Medical Oncology / Diagnoses Myelofibrosis (HCC) Janusz Govea Rst Inf Onc Rogo Oncology Procedures ONCBCN INFUSION APPOINTMENT REQUEST 09 ONC THER INF M.B.B.S. [address] [place] [address] [place] [phone] Referral ID Status Reason Start Date Expiration Date Visits Requ ested Visits Authorized [id number] Closed 06/06/2020 06/20/2021 99 30 Encounter Details Date Type Department Care Team Description 06/06/2020 Infusion Department of Oncology Janusz Govea M yelofibrosis (HCC) in [facility] quotation clerk M.B.B.S. 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 91.3 kg Order-specific weight), intravenous, at 500 mL/hr, Once, On Fri06/06/20 at 1015, For 1 dose, Flush with 30 mL following the infusion using orders in the Vascular Access Patency Nurse Protocol. Monitor BP (pre dose & post dose), HR, temp, resp (pre-dose and as clinically indicated). Administer using 1.2 micron filter tubing via a peripheral or central line. sodium chloride (flush) 0.9 % injection 30 mL Given 06/06/2020 1:49 PM LIVESTOCK BROKER 30 mL 30 mL, intravenous, Once, On Fri06/06/20 at 1115, For 1 dose, Post chemotherapy flush documented in this encounter
--- OUTSIDE RECORDS SUMMARY | 2022-05-02 12:12 | XMS_ITS | Encounter Summary ---
:1970 Author Organization [facility] Address [address] [place] [address] Care Team Providers Name Role Phone Unavailable Primary Care Provider Unavailable Encounter Details Date Type Department Care Team Description 05/25/2020 [facility]ation [facility] [address] [facility] [address] [place] [phone] [place], [place] [phone] Social History Tobacco Use Types Packs/Day Years Used Date Smoking Tobacco: Former Smokeless Tobacco: Never Sex Assigned at Date Recorded Female 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
--- OUTSIDE RECORDS SUMMARY | 2022-05-02 12:12 | XMS_ITS | Encounter Summary ---
:1970 Author Organization [facility] Address [address] [place] [address] Care Team Providers Name Role Phone Unavailable Primary Care Provider Unavailable Encounter Details Date Type Department Care Team Description 06/06/2020 Hospital Encounter Department of Gangat, Myelofib rosis ([facility]) Laboratory Medicine [facility], and Pathology, [facility], in [address] [place] [id number] [place], [place] [phone] (Work) [phone] Social History Tobacco Use Types Packs/Day Years Used Date Smoking Tobacco: Former Smokeless Tobacco: Never Sex Assigned at Date Recorded Female 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 CBC WITH DIFFERENTIAL, B Routine 06/06/2020 7:20 Myelofibrosis (HCC) Results for this AM CHILDREN'S TUTOR procedure are i n the results section. URIC ACID, S/P Routine 06/06/2020 7:20 Myelofibrosis (HCC) Res ults for this AM CHILDREN'S TUTOR procedure are i n the results section. BUN (BLOOD UREA Routine 06/06/2020 7:20 Myelofibrosis (HCC) Re sults for this NITROGEN), S/P AM CHILDREN'S TUTOR procedure are in the results section. ALANINE AMINOTRANSFERASE Routine 06/06/2020 7:20 Myelofibrosis (HCC) Results for this (ALT), S/P AM CHILDREN'S TUTOR procedure are i n the results section. ASPARTATE Routine 06/06/2020 7:20 Myelofibrosis (HCC) Resul ts for this AMINOTRANSFERASE (AST), AM CHILDREN'S TUTOR proc edure are in S/P the results section. SODIUM, S/P Routine 06/06/2020 7:20 Myelofibrosis (HCC) Resul ts for this AM CHILDREN'S TUTOR procedure are i n the results section. PROTEIN, TOTAL, S/P Routine 06/06/2020 7:20 Myelofibrosis (HCC ) Results for this AM CHILDREN'S TUTOR procedure are i n the results section. POTASSIUM, S/P Routine 06/06/2020 7:20 Myelofibrosis (HCC) Res ults for this AM CHILDREN'S TUTOR procedure are i n the results section. ALKALINE PHOSPHATASE, Routine 06/06/2020 7:20 Myelofibrosis (H CC) Results for this S/P AM CHILDREN'S TUTOR procedure are i n the results section. MAGNESIUM, S Routine 06/06/2020 7:20 Myelofibrosis (HCC) Resul ts for this AM CHILDREN'S TUTOR procedure are i n the results section. GLUCOSE, RANDOM, S/P Routine 06/06/2020 7:20 Myelofibrosis (HC C) Results for this AM CHILDREN'S TUTOR procedure are i n the results section. CREATININE WITH EGFR, Routine 06/06/2020 7:20 Myelofibrosis (H CC) Results for this S/P AM CHILDREN'S TUTOR procedure are i n the results section. CHLORIDE, S/P Routine 06/06/2020 7:20 Myelofibrosis (HCC) Resu lts for this AM CHILDREN'S TUTOR procedure are i n the results section. CALCIUM, TOT, S/P Routine 06/06/2020 7:20 Myelofibrosis (HCC) Results for this AM CHILDREN'S TUTOR procedure are i n the results section. BILIRUBIN, TOT, S/P Routine 06/06/2020 7:20 Myelofibrosis (HCC ) Results for this AM CHILDREN'S TUTOR procedure are i n the results section. ALBUMIN, S/P Routine 06/06/2020 7:20 Myelofibrosis (HCC) Resul ts for this AM CHILDREN'S TUTOR procedure are i n the results section. documented in this encounter Results (ABNORMAL) Morphology Evaluation (Special Smear) (06/06/2020 7:20 AM CHILDREN'S TUTOR) [facility] gist Method Time Signature Neutrophilic Segs 77 (H) 50 - 75 % 06/06/2020 [facility] and Bands 9:00 AM CHILDREN'S TUTOR Lymphocytes 12 (L) 18 - 42 % 06/06/2020 [facility] 9:00 AM CHILDREN'S TUTOR Monocytes 1 (L) 2 - 11 % 06/06/2020 [facility] 9:00 AM CHILDREN'S TUTOR Eosinophils 1 1 - 3 % 06/06/2020 [facility] 9:00 AM CHILDREN'S TUTOR Metamyelocytes 2 (H) <1 % 06/06/2020 [facility] 9:00 AM CHILDREN'S TUTOR Myelocytes 7 (H) <0.5 % 06/06/2020 [facility] 9:00 AM CHILDREN'S TUTOR Nucleated RBC 6 /100 WBC 06/06/2020 [facility] 9:00 AM CHILDREN'S TUTOR Manual Absolute 2.23 1.56 - 06/06/2020 [facility] Neutrophil Count 6.45 9:00 AM CHILDREN'S TUTOR x10(9)/L Comment: ----ADDITIONAL INFORMATION---- The manual absolute neutrophil count is derived from a manual differential count and therefore is not exactly comparable to the automated absolute halie trophil count. Specimen Anatomical Collection Method Collection Time Receive d Time (Source) Location / / Volume Laterality Blood 06/06/2020 7:20 AM 0 7:54 CHILDREN'S TUTOR AM CHILDREN'S TUTOR Janusz Dillon.B.B.S. LAB BLOOD ADD-ON Performing Organization Address City/[facility]/ZIP Code Phon e Number [facility] - [address] [place], [place] [address] [place] [address] [facility] [address] [facility] Protein, Total (06/06/2020 7:20 AM CHILDREN'S TUTOR) athologist Signature Protein, Total, 6.3 6.3 - 7.9 06/06/2020 DTL S g/dL 8:35 AM CHILDREN'S TUTOR Specimen Anatomical Collection Method Collection Time Receive d Time (Source) Location / / Volume Laterality Blood (Blood, 06/06/2020 7:20 AM 06/06/20 8:14 Venous) CHILDREN'S TUTOR AM CHILDREN'S TUTOR Janusz Dillon.B.B.S. LAB BLOOD ADD-ON Performing Organization Address City/[facility]/ZIP [facility] Phon e Number [facility] - [address] [place], [place] [address] [place] [address] [facility] [address] [facility] Albumin (06/06/2020 7:20 AM CHILDREN'S TUTOR) athologist Signature Albumin, S 4.5 3.5 - 5.0 06/06/2020 DTL g/dL 8:35 AM CHILDREN'S TUTOR Specimen Anatomical Collection Method Collection Time Receive d Time (Source) Location / / Volume Laterality Blood (Blood, 06/06/2020 7:20 AM 06/06/20 20 8:14 Venous) CHILDREN'S TUTOR AM CHILDREN'S TUTOR Janusz Dillon.B.B.S. LAB BLOOD ADD-ON Performing Organization Address City/[facility]/ZIP [facility] Phon e Number [facility] - [address] [place], [place] [address] [place] [address] [place] [address] [facility] Glucose, Random (06/06/2020 7:20 AM CHILDREN'S TUTOR) P athologist Signature Glucose, S 93 70 - 140 06/06/2020 DTL mg/dL 8:35 AM CHILDREN'S TUTOR Specimen Anatomical Collection Method Collection Time Receive d Time (Source) Location / / Volume Laterality Blood (Blood, 06/06/2020 7:20 AM 06/06/20 8:14 Venous) CHILDREN'S TUTOR AM CHILDREN'S TUTOR Janusz ArringtonB.S. LAB BLOOD TROPONIN Performing Organization Address [facility] Phon e Number [facility] - [address] [place] [address] [facility] [place] [address] Laboratories[address] (ABNORMAL) Uric Acid (06/06/2020 7:20 AM CHILDREN'S TUTOR) P athologist Signature Uric Acid, S 8.5 (H) 2.7 - 6.1 06/06/2020 DTL mg/dL 8:35 AM CHILDREN'S TUTOR Specimen Anatomical Collection Method Collection Time Receive d Time (Source) Location / / Volume Laterality Blood (Blood, 06/06/2020 7:20 AM 06/06/20 8:14 Venous) CHILDREN'S TUTOR AM CHILDREN'S TUTOR Janusz ArringtonB.S. LAB BLOOD ADD-ON Performing Organization Address City/[facility] Phon e Number [facility] - [address] (ABNORMAL) Creatinine with Estimated GFR (06/06/2020 7:20 AM CHILDREN'S TUTOR) Analysis Performed At Patho logist Time Signature Creatinine 1.20 (H) 0.59 - 06/06/2020 DTL 1.04 mg/dL 8:35 AM CHILDREN'S TUTOR eGFR-Non 52 (L) >=60 06/06/2020 DTL Black/ mL/min/BSA 8:35 AM CHILDREN'S TUTOR [place] Comment: ----ADDITIONAL INFORMATION---- Estimated GFR calculated using the 2009 CKD_EPI creatinine equation. eGFR-Black/ 60 >=60 mL/min/BSA 2019 8:35 AM CHILDREN'S TUTOR DTL Comment: ----ADDITIONAL INFORMATION---- Estimated GFR calculated using the 2009 CKD_EPI creatinine equation. Specimen Anatomical Collection Method Collection Time Receive d Time (Source) Location / / Volume Laterality Blood (Blood, 06/06/2020 7:20 AM 06/06/20 8:14 Venous) CHILDREN'S TUTOR AM CHILDREN'S TUTOR Janusz Dillon.B.B.S. LAB BLOOD ADD-ON Performing Organization Address City/[facility]/ZIP Code Phon e Number [facility] - 200 [place], [place] [address] [place] [phone] (ABNORMAL) BUN (Blood Urea Nitrogen) (06/06/2020 7:20 AM CHILDREN'S TUTOR) athologist Signature BUN (Blood Urea 28 (H) 6 - 21 06/06/2020 DTL Nitrogen), S mg/dL 8:35 AM CHILDREN'S TUTOR Specimen Anatomical Collection Method Collection Time Receive d Time (Source) Location / / Volume Laterality Blood (Blood, 06/06/2020 7:20 AM 06/06/20 8:14 Venous) CHILDREN'S TUTOR AM CHILDREN'S TUTOR Janusz Dillon.B.B.S. LAB BLOOD ADD-ON Performing Organization Address City/[facility]/ZIP Code Phon e Number [facility] - 200 [place] [phone] Bilirubin, Total (06/06/2020 7:20 AM CHILDREN'S TUTOR) athologist Signature Bilirubin, 0.7 <=1.2 mg/dL 06/06/2020 DT Total, S 8:35 AM CHILDREN'S TUTOR Specimen Anatomical Collection Method Collection Time Receive d Time (Source) Location / / Volume Laterality Blood (Blood, 06/06/2020 7:20 AM 06/06/20 8:14 Venous) CHILDREN'S TUTOR AM CHILDREN'S TUTOR Janusz Govea M.B.B.S. LAB BLOOD ADD-ON Performing Organization Address City/State/ZIP Code Phon e Number [facility] - [address] [place], [place] [address] [place] [id number] [place] [address] Calcium, Total (06/06/2020 7:20 AM CHILDREN'S TUTOR) athologist Signature Calcium, Total, 8.8 8.6 - 10.0 06/06/2020 DTL S mg/dL 8:35 AM CHILDREN'S TUTOR Specimen Anatomical Collection Method Collection Time Receive d Time (Source) Location / / Volume Laterality Blood (Blood, 06/06/2020 7:20 AM 06/06/20 8:14 Venous) CHILDREN'S TUTOR AM CHILDREN'S TUTOR Nasbaltazarma Harrygat M.B.B.S. LAB BLOOD ADD-ON Performing Organization Address City/State/ZIP Code Phon e Number [facility] - [address] [place], [place] [address] [place] [address] [facility] [address] Chloride (06/06/2020 7:20 AM CHILDREN'S TUTOR) P athologist Signature Chloride, S 104 98 - 107 06/06/2020 DTL mmol/L 8:35 AM CHILDREN'S TUTOR Specimen Anatomical Collection Method Collection Time Receive d Time (Source) Location / / Volume Laterality Blood (Blood, 06/06/2020 7:20 AM 06/06/20 8:14 Venous) CHILDREN'S TUTOR AM CHILDREN'S TUTOR Nasbaltazarma Harrygat M.B.B.S. LAB BLOOD ADD-ON Performing Organization Address City/State/ZIP Code Phon e Number [facility] - [address] [place], [place] [address] [place] [address] [facility] [address] Magnesium (06/06/2020 7:20 AM CHILDREN'S TUTOR) P athologist Signature Magnesium, S 2.3 1.7 - 2.3 06/06/2020 DTL mg/dL 8:35 AM CHILDREN'S TUTOR Specimen Anatomical Collection Method Collection Time Receive d Time (Source) Location / / Volume Laterality Blood (Blood, 06/06/2020 7:20 AM 06/06/20 8:14 Venous) CHILDREN'S TUTOR AM CHILDREN'S TUTOR Janusz Mcdonaldgat M.B.B.S. LAB BLOOD ADD-ON Performing Organization Address City/State/ZIP Code Phon e Number [facility] - [address] [place], [place] [address] [place] [address] [facility] [address] Potassium (06/06/2020 7:20 AM CHILDREN'S TUTOR) P athologist Signature Potassium, S 5.1 3.6 - 5.2 06/06/2020 DTL mmol/L 8:35 AM CHILDREN'S TUTOR Specimen Anatomical Collection Method Collection Time Receive d Time (Source) Location / / Volume Laterality Blood (Blood, 06/06/2020 7:20 AM 06/06/20 8:14 Venous) CHILDREN'S TUTOR AM CHILDREN'S TUTOR Janusz Govea M.B.B.S. LAB BLOOD ADD-ON Performing Organization Address City/[facility]/ZIP [facility] Phon e Number [facility] - [address] Sodium (06/06/2020 7:20 AM CHILDREN'S TUTOR) P athologist Signature Sodium, S 139 135 - 145 06/06/2020 8:35 DTL mmol/L AM CHILDREN'S TUTOR Specimen Anatomical Collection Method Collection Time Receive d Time (Source) Location / / Volume Laterality Blood (Blood, 06/06/2020 7:20 AM 06/06/20 8:14 Venous) CHILDREN'S TUTOR AM CHILDREN'S TUTOR Janusz Govea M.B.B.S. LAB BLOOD ADD-ON Performing Organization Address City/[facility] Phon e Number [facility] - [address] [place] [address] [facility] (ABNORMAL) Alkaline Phosphatase (06/06/2020 7:20 AM CHILDREN'S TUTOR) P athologist Signature Alkaline 34 (L) 35 - 104 06/06/2020 DTL Phosphatase, S U/L 8:35 AM CHILDREN'S TUTOR Specimen Anatomical Collection Method Collection Time Receive d Time (Source) Location / / Volume Laterality Blood (Blood, 06/06/2020 7:20 AM 06/06/20 20 8:14 Venous) CHILDREN'S TUTOR AM CHILDREN'S TUTOR Janusz Govea M.B.B.S. LAB BLOOD ADD-ON Performing Organization Address City/State/ZIP [facility] Phon e Number [facility] - [address] [place] [address] [facility] AST (Aspartate Aminotransferase) (06/06/2020 7:20 AM CHILDREN'S TUTOR) Patholo gist Method Time Signature Aspartate 29 8 - 43 06/06/2020 DTL Aminotransferase U/L 8:35 AM CHILDREN'S TUTOR (AST), S Specimen Anatomical Collection Method Collection Time Receive d Time (Source) Location / / Volume Laterality Blood (Blood, 06/06/2020 7:20 AM 06/06/20 20 8:14 Venous) CHILDREN'S TUTOR AM CHILDREN'S TUTOR Janusz Dillon.B.B.S. LAB BLOOD ADD-ON Performing Organization Address [facility] Phon e Number [facility] - [address] [place] [address] [place] [address] ALT (Alanine Aminotransferase) (06/06/2020 7:20 AM CHILDREN'S TUTOR) [facility] Method Time Signature Alanine 17 7 - 45 06/06/2020 DTL Aminotransferase U/L 8:35 AM CHILDREN'S TUTOR (ALT), S Specimen Anatomical Collection Method Collection Time Receive d Time (Source) Location / / Volume Laterality Blood (Blood, 06/06/2020 7:20 AM 06/06/20 8:14 Venous) CHILDREN'S TUTOR AM CHILDREN'S TUTOR Janusz Dillon.Cain.B.S. LAB BLOOD ADD-ON Performing Organization Address [facility] Phon e Number [facility] - [address] (ABNORMAL) CBC with Differential, Blood (06/06/2020 7:20 AM CHILDREN'S TUTOR) [facility] Method Time Signature Hemoglobin 7.3 (L) 11.6 - 06/06/2020 DTL 15.0 g/dL 8:03 AM CHILDREN'S TUTOR Hematocrit 25.1 (L) 35.5 - 06/06/2020 DTL 44.9 % 8:03 AM CHILDREN'S TUTOR Erythrocytes 2.70 (L) 3.92 - 06/06/2020 DTL 5.13 8:03 AM CHILDREN'S TUTOR x10(12)/L MCV 93.0 78.2 - 06/06/2020 DTL 97.9 fL 8:03 AM CHILDREN'S TUTOR RBC Distrib Width 27.9 (H) 12.2 - 06/06/2020 DTL 16.1 % 8:03 AM CHILDREN'S TUTOR Platelet Count 106 (L) 157 - 371 06/06/2020 DTL x10(9)/L 8:56 AM CHILDREN'S TUTOR Leukocytes 2.9 (L) 3.4 - 9.6 06/06/2020 DTL x10(9)/L 9:00 AM CHILDREN'S TUTOR Comment: Results confirmed by smear. Neutrophils SeeComment 1.56 - 6.45 x10(9)/L 06/06/2020 9:00 AM CHILDREN'S TUTOR DTL Comment: Auto-diff results not valid. Se e manual differential. Specimen Anatomical Collection Method Collection Time Receive d Time (Source) Location / / Volume Laterality Blood (Blood, 06/06/2020 7:20 AM 06/06/20 7:54 Venous) CHILDREN'S TUTOR AM CHILDREN'S TUTOR Janusz Ardon LAB BLOOD ADD-ON Performing Organization Address City/State/ZIP Code Phon e Number [facility] - [address] [place], [place] [address] [facility] [place] [address] Laboratories-[facility] [address] documented in this encounter Visit Diagnoses Diagnosis Myelofibrosis (HCC) documented in this encounter
--- OUTSIDE RECORDS SUMMARY | 2022-05-02 12:12 | XMS_ITS | Encounter Summary ---
:1970 Author Organization [facility] Address [address] [place] [address] Care Team Providers Name Role Phone Unavailable Primary Care Provider Unavailable Encounter Details Date Type Department Care Team Description 05/31/2020 Orders Only Division of Hematology Janusz Govea M yelofibrosis (HCC) in [facility].B.B.S. 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
--- OUTSIDE RECORDS SUMMARY | 2022-05-02 12:12 | XMS_ITS | Encounter Summary ---
:1970 Author Organization [facility] Address [address] [place] [address] Care Team Providers Name Role Phone Unavailable Primary Care Provider Unavailable Reason for Visit Outpatient (Routine) - Closed Specialty Diagnoses / Procedures Referred By Contact Refer red To Contact Diagnoses Myelofibrosis (HCC) Janusz Govea M.B.B.S. [facility] Procedures Biopsy Bone Marrow [address] [place] [phone] Referral ID Status Reason Start Date Expiration Date Visits Requ ested Visits Authorized [id number] Closed 05/22/2020 05/22/2021 1 1 Encounter Details Date Type Department Care Team Description 06/01/2020 Procedure visit Department of Janusz Govea M.B.B.S. [address] [place] [phone] Myelofibrosis (HCC) Infusion Therapy in Kenneth Bridges R.N. [address] [place] [phone] [place], [place] [address] [place] [phone] Social History Tobacco Use Types Packs/Day Years Used Date Smoking Tobacco: Former Smokeless Tobacco: Never Sex Assigned at Date Recorded Female 07/24/2021 11:03 AM [facility] documented as of this encounter Procedure Notes Kenneth Bridges R.N. - 06/01/2020 2:30 PM CSTAssociated Order(s): Biopsy Bone Marrow Pre-Procedure Diagnose(s): Myelofibrosis (HCC) Post-Procedure Diagnose(s): Myelofibrosis (HCC) Biopsy Bone Marrow Date/Time: 06/01/2020 2:50 PM Performed by: Kenneth Bridges R.N. Authorized by: Janusz Govea M.B.BZahraaSZahraa Care team members present 1. Ronny Natarajan MLS(ASCP) PROCEDURE DETAILS Procedure: Bone Marrow aspiration and Bone Marrow biopsy Bone marrow biopsy Laterality: Left Location of biopsy: Posterior iliac crest Patient position: Side lying Type of Needle: Manual bone marrow biopsy needle Findings: Aspirate obtained with spicules noted, fluid obtained and slides obtained Bone marrow aspiration Aspirate volume (mL): 18 CONSENT Consent obtained: written UNIVERSAL PROTOCOL All [...] pain scale: 0/10 Complications: no apparent complications Post-procedure instructions: Post-procedure activity instructions provided COMMENTS Lidocaine 1% 200mg given. Attempt x3 with aspirate needle. Touch preps made with biopsy. 0221 Bone Marrow Examination pamphlet provided. SCALER documented in this encounter Plan of Treatment Not on filedocumented as of this encounter Procedures Procedure Name Priority Date/Time Associated Diagnosis Comme nts [place] DX BONE MARROW BX & Routine 06/01/2020 2:30 Myelofibrosis ( HCC) Results for this ASPIR PM [facility]ARK SC[facility] procedure are i n the results section. CHROMOSOMES, Routine 06/01/2020 10:30 Results for this HEMATOLOGIC, BM AM [facility]ARK SC[facility]ER procedure ar e in the results section. HEMATOPATHOLOGY Routine 06/01/2020 5:59 Results f or this AM [facility] procedure are i n the results section. NGS FOR MYELOID Routine 05/31/2020 10:30 Results for this NEOPLASMS (NGSHM) AM [facility] procedure are in the results section. documented in this encounter Results [place] DX BONE MARROW BX & ASPIR (06/01/2020 2:30 PM BARK SCALER) Specimen (Source) Anatomical Location Collection Method / Collectio n Time Received Time / Laterality Volume Bone Marrow Narrative MMODAL - 06/01/2020 2:30 PM [facility] Kenneth Bridges R.N. ? 06/01/2020 ??2:51 PM Biopsy Bone Marrow Date/Time: 06/01/2020 2:50 PM Performed by: Kenneth Bridges R.N. Authorized by: Janusz Govea M.B.BZahraaS. Care team members present 1. Ronny Natarajan MLS(ASCP) PROCEDURE DETAILS Procedure: ??Bone Marrow aspiration and [...] Code Phon e Number MMODAL MMODAL NA Chromosome Analysis, Hematologic Disorders, Bone Marrow (06/01/2020 10:30 AM [facility]) Component Value Ref Test Analysis Performed Pathologis t Range Method Time At Signature Result Summary Abnormal 06/29/2020 DTL 10:26 AM [facility] SC[facility]ER Karyotype 46,XX,del(13)(q12q14 06/29/2020 DTL )[14]/46,XX[6] 10:26 AM [facility] Reason for myeloproliferative 06/29/2020 DTL referral neoplasm/MPN 10:26 AM [facility] Specimen Bone Marrow 06/29/2020 DTL 10:26 AM [facility] SCALER Method Culture without 06/29/2020 DTL mitogens 10:26 AM [facility] Banding Method Band Resolution: 06/29/2020 DTL <400 10:26 AM [facility]ARK SCALER Stain Name ? Cells Analyzed Cells ? Karyogr ams ? Counted ? Prepared ? GTL ? 20 ? 0 ? 3 ? Total ? 20 ? 0 ? 3 ? Conley to Stain Name: GTL=G-banding; QFQ=Q-banding; DAPI=DAPI-staining; CBL=C-banding; AGNOR=Silver-staining; NON=Non-banded The sum of Cells Analyzed and Cells Counted equals the total cells examined. Released by Cate Junior, 06/29/2020 DTL M.D. 10:26 AM [facility]ER Interpretation The result is abnormal. Of 20 metaphases, six were n ormal 06/29/2020 DTL and 14 had a 13q deletion. An isolated 13q deletion clone 10:26 AM dividing in the bone marrow usually represents a myeloid [facility]ARK [employer] malignancy, but can occasionally be associated with a lymphoid disorder (Seamus et al., Genes Chromosomes Cancer 27:278-284, 1999; Veroet et al., ibid. 25:222-229, 1998; Ileana et al., ibid. 14:106-111, 1995). Clinical and pathologic correlation is recommended. This test was ordered in the context of a [facility] pathology consultation/case (#[id number]), and this result should be interpreted within the context of the pathology consultation/report. REPORT REVISED 06/29/2020: ??The 06/23/2020 report was revised to change the date of collection. The results and interpretation remain unchanged. Comment: REVISED RESULTS ----PREVIOUSLY REPORTED ---- The result is abnormal. Of 20 metaphases, six were normal and 14 had a 13q deletion. An isolated 1 3q deletion clone dividing in the bone marrow usually repr esents a myeloid malignancy, but can occasionally be asso ciated with a lymphoid disorder (Seamus et al., Genes C hromosomes Cancer 27:278-284, 1999; Coignet et al., ibid. 25:222-229, 1998; Ileana et al., ibid. 14:106-111, 1994). Clinical and pathologic correlation is r ecommended. This test was ordered in the context of a [facility] pathology consultation/case (#[id number] ), and this result should be interpreted within the context of the pathology consultation/report., Flagged as: ??(Rep orted 06/06/2020 15:27) Specimen Anatomical Collection Method Collection Time Receive d Time (Source) Location / / Volume Laterality Bone Marrow 06/01/2020 10:30 06/02/2020 AM [facility]ER 10:45 AM [facility] SCALER Narrative This result has an attachment that is no t available. Janusz Ardon LAB GENETIC TESTING Performing Organization Address City/State/ZIP Code Phon e Number [facility] - [address] [place], [place] [address] [facility] [place] [address] [facility] [address] Hematopathology (06/01/2020 5:59 AM [facility]ER) Component Value Ref Test Analysis Performed Pathologis t Range Method Time At Signature 06/02/2020 [facility] 5:13 PM [facility] Report Maureen Barbour M.D., Ph.D. 06/02/2020 [facility] electronically I verify that I have examined all relevant slides/ma terials 5:13 PM signed by for the specimen(s) and rendered or confirmed the diagnosis. [facility] SC[facility] Gross Description B: ??Received in B5 and subsequently placed in fo rmalin, 06/02/2020 [facility] labeled with the patient's name, medical record number, and 5:13 PM bone marrow biopsy is a pale de la garza-brown bone marrow core, [facility] 0.3 cm in average diameter and 1.7 cm in length. ??The specimen is bisected and submitted entirely in cassette B1. The specimen was decalcified prior to processing. Grossed by YAA. C: ??Received in formalin labeled with the patient's name, medical record number, and bone marrow clot is a 2.2 x 1.0 x 0.3 cm aggregate of dark red bone marrow clot material. The specimen is submitted en toto in cassette C1. Grossed by YAA. Disclaimer This test was developed and its performance characteri stics 06/02/2020 [facility] determined by [facility] in a manner consistent with CLIA 5:13 PM requirements. This test has not been cleared or approved by [facility] the U.S. Food and Drug Administration. Addendum ADDENDUM 06/26/2020 [facility] Molecular analysis for next generation sequencing (NGSHM), 1:04 PM bone marrow ([id number]; 06/01/2020): CS T Pathogenic Mutations Detected: 1. CALR: Chr19(GRCh37):g.13054627_13054628insTTGTC; NM_004343.3(CALR):c.1154_1155insTTGTC; p.Ise370Odiif*47 (44%) 2. SF3B1: Chr2(GRCh37):g.019221754C>C; NM_012433.2(SF3B1):c.1997A>G; p.Wet443Wxq (10%) ? Chr2(GRCh37):g.972069067I>C; NM_012433.2(SF3B1):c.2098A>G; p.Xbv259Aak (30%) No other pathogenic mutations were detected in the other genes tested on the panel at the reportable limit of assay detection. ??See full report for details. ??Please see the section of Panel Gene List in the full report for the complete list of genes tested. Variants of Uncertain Significance: None. The VUS variants listed here (with approximate variant allele %) are not sufficiently characterized in the current literature and are therefore of uncertain clinical significance at this time. ??They are reported here for future reference in the event they become clinically significant in the light of new scientific data. Molecular Hematopathology studies interpreted by Jolene Alexandra M.D. Signed by Maureen Barbour M.D., Ph.D. 06/26/2020 1:04 PM ADDENDUM Cytogenetic analysis, bone marrow ([id number], 06/01/2020): 46,XX,del(13)(q12q14)[14]/46,XX[6] The result is abnormal. Of 20 metaphases, six were normal and 14 had a 13q deletion. An isolated 13q deletion clone dividing in the bone marrow usually represents a myeloid malignancy, but can occasionally be associated with a lymphoid disorder (Seamus et al., Genes Chromosomes Cancer 27:278-284, 2000; Delfino et al., ibid. 25:222-229, 1999; Ileana et al., ibid. 14:106-111, 1995). See cytogenetics report for complete details. Signed by Kervin Arnett M.D., Ph.D. 06/07/2020 11:12 AM Comment: REVISED RESULTS Interpretation FINAL DIAGNOSIS 06/26/2020 [facility] Peripheral blood, bone marrow aspirate and biopsy, iliac 1:04 PM [facility] crest: Persistent chronic myeloid neoplasm, previously diagnosed as primary myelofibrosis, with no increase in bone marrow blasts, no circulating blasts, grade 3 myelofibrosis, and 20-30% ring sideroblasts. ??See comment. Comment: Cytogenetic and molecular analysis is pending, and results will be reported in an addendum. MICROSCOPIC DESCRIPTION Peripheral Blood: CBC - ??05/25/2020 11:14:00 AM HGB 6.6 g/dL; RBC 2.51 x10(12)/L; MCV 92.8 fL; RDW 28.9 %; WBC 3.3 x10(9)/L; PLT 92 x10(9)/L Cell ? % o f Total Cells ? NEUTROPHILS ? 67 ? LYMPHOCYTES ? 14 ? MONOCYTES ? 0 ? EOSINOPHILS ? 4 ? BASOPHILS ? 0 ? METAMYELOCYTES ? 5 ? MYELOCYTES ? 10 ? PROMYELOCYTES ? 0 ? BLASTS ? 0 ? OTHER CELLS ? 0 ? NRBC ? 9 ? Total Cells: 100 ? Peripheral Smear: Severe normocytic anemia with marked anisopoikilocytosis, frequent dacrocytes, and leukoerythroblastic reaction. ??Neutrophils with mild left shift. ??Mild thrombocytopenia with occasional large or giant, hypogranular platelets. Bone Marrow Aspirate/Touch Imprint/Biopsy: Cell ? % o f Total Cells ? NEUTROPHILS ? 32 ? METAMYELOCYTES ? 2 ? MYELOCYTES ? 5 ? PROMYELOCYTES ? 0 ? EOSINOPHILS ? 0 ? BASOPHILS ? 0 ? BLASTS ? 0 ? NORMOBLASTS ? 57 ? MONOCYTES ? 1 ? PROMONOCYTES ? 0 ? LYMPHOCYTES ? 3 ? PLASMA CELLS ? 0 ? Technical Comment : Count done on unit prep ? Total Cells: 100 ? Aspirate quality: Sparsely cellular. and hemodilute Biopsy quality: Adequate, with focal aspiration and crush artifact, and increased bone remodeling with osteosclerosis. M:E ratio: Decreased. Cellularity: Hypercellular, 95%. Erythroid precursors: Increased quantity. ??Normal morphology. Myeloid precursors: Increased quantity. Normal morphology. Blasts not increased. Megakaryocytes: Increased quantity. Abnormal morphology and distribution, with frequent clustering and large, hyperlobated forms. ??Frequent intrasinusoidal hematopoiesis is noted. Lymphocytes: Rare benign-appearing lymphoid aggregates. Plasma cells: Not increased. ANCILLARY STUDIES Iron stain, bone marrow aspirate: Storage iron is unevaluable due to lack of bone marrow particles. Sideroblasts present. ??Ring sideroblasts present (20-30%). Reticulin stain, bone marrow biopsy: Increased, grade 3 of 3. Immunohistochemical studies, bone marrow biopsy, antibodies to CD34: PR67-bhdjpeeo blasts are not increased. Cytogenetic analysis, bone marrow aspirate: Sample has been forwarded for testing and results will be reported in an addendum. Molecular analysis for NGSHM, bone marrow aspirate: Sample has been forwarded for testing. ??Results will be reported in an addendum. Specimen Anatomical Collection Method Collection Time Receive d Time (Source) Location / / Volume Laterality Varies 06/01/2020 5:59 AM 0 5:59 [facility] AM [facility] SC[facility] Narrative This result has an attachment that is no t available. Janusz Ardon LAB SURG PATH ORDERABLES Performing Organization Address City/State/ZIP Code Phon e Number [facility] - [address] [place] [place] [address] [place] [address] [facility] [address] OncoHeme NGS for Myeloid Neoplasms (05/31/2020 10:30 AM [facility]) Component Value Ref Test Analysis Performed Pathologis t Range Method Time At Signature Specimen Type Bone marrow 06/23/2020 DTL 4:57 PM [facility] SC[facility] Indication for MPN 06/23/2020 DTL Test 4:57 PM [facility] NGSHM Result See Interpretation 06/23/2020 DTL 4:57 PM [facility] Pathogenic 1. CALR: Chr19(GRCh37):g.13054627_13054628insTTGTC; 06/23/2020 DTL Mutations NM_004343.3(CALR):c.1154_1155insTTGTC; p.Hpj666Jwcag*4 7 (44%) 4:57 PM Detected 2. SF3B1: Chr2(GRCh37):g.035574590S>C; NM_012433.2(SF3 B1):c.1997A>G; [facility] p.Rjy902Ovf (10%) ? Chr 2(GRCh37):g.451020974M>C; NM_012433.2(SF3B1):c.2098A>G; p.Dzz466Aqq (30%) No other pathogenic mutations were detected in the oth er genes tested on the panel at the reportable limit of assay detection . ??See below for Variants of Unknown Significance and Additional Notes. ??Ple ase see the section of Panel Gene List below for the complete list of genes tested. Clinical Trials Information regarding possib clinical trials for this patient can be found 06/23/2020 DTL at the following sites: 4:57 PM 1). ClinicalTrials.gov: B[facility] http://clinicaltrials.gov/ct2/search/advanced 2). [facility]: http://www.[facility]/research/clinical-trials 3). [employer] [place]: http://www.cancer.gov/clinicaltrials/search 4). Molecular Match: https://www.[employer].com/ Variants of None 06/23/2020 DTL Unknown The VUS variants listed here (with approximate variant allele %) are not 4:57 PM Significance sufficiently characterized i n the current literature and are therefore of [facility] SC[employer]ER (VUS) uncertain clinical significance at this time. Th ey are reported here for future reference in the event they become clinic ally significant in the light of new scientific data. Additional None 06/23/2020 DTL Information 4:57 PM [facility] SC[facility] Method DNA is extracted from the peripheral blood or bone mar row sample and 06/23/2020 DTL following library preparation by hybrid capture, subjected to next generation 4:57 PM sequencing (NGS) with post-sequencing analysis o f tumor-associated mutations. [facility] Performance characteristics of NGS panel: Single base substitutions: accuracy >99%; reproducibility 10 0% (intra- and interassay); sensitivity 5-10% variant allele fraction wit h a minimum depth coverage of 250X. Insertion/deletion events: accuracy >99%; reproducibility 10 0% (intra- and interassay); sensitivity 5-10% variant allele fraction wit h a minimum depth coverage of 250X. This test was developed and its performance characteristics determined by [facility] in a manner consistent with CLIA requireme nts. This test has not been cleared or approved by the U.S. Food and Drug Administr ation. Disclaimer CLINICAL DISCLAIMER 06/23/2020 DTL Mutation calls detected between 5-10% variant allele f ractions (VAF) may 4:57 PM indicate low-level (i.e. subclonal) tumor populations, although the clinical BARK SC[facility] significance of these findings may not be [...] clearly distinguishable from tu mor-associated mutations (PMID [id number];844811 37). ??Prior treatment for hematologic malignancy could [...] insertion/deletion (indel) events , copy number alterations (CULTURAL CENTRE MANAGER) and gene translocation events are not dete cted by this assay. OncoHeme Panel ANKRD26 ??(NM_014915.2) 5'UT R, exons 1-4, intron c.172, ??ASXL1 ??(NM_015338.5) 06/23/2020 DTL Gene list exons 10-13, ??BCOR ??(NM_00 2060082.1) exons 4-15, ??CALR ??(NM_004343.3) exon 9, 4:57 PM CBL ??(NM_005188.3) intron 7 last 100bps before start of e xon 8, exon 8, [facility]ARK SCALER intron 8, and exon 9, ??CEBPA ??(NM_004364.4) ex on 1, ??CSF3R ??(NM_000760.3) exons 14 and 17, ??DDX41 ??(NM_016222.2) exons 1 -17, ??DNMT3A ??(NM_022552.4) exons 8-23, ELANE ??(NM_0019 72.2) exons 1-5, ??ETNK1 ??(NM_018638.4) exons 2-5, ETV6(NM_001987.4) exons 3-8, ??EZH2 ??(NM_004456.4) exons 2- 20, ??FLT3 (NM_004119.2) exons 14-20, ??GATA1 ??(NM_002049.3) exons 2 a nd 4, ??GATA2 (NM_001145661.1) exons 3-7, intron 5, c.1017+1 - 1017+730, ? ?IDH1 (NM_005896.3) exon 4, ??IDH2(NM_002168.3 ) exon 4, ??JAK2 ??(NM_004972.3) exons 12-16, ??KDM6A ??(UTX) (NM_0 58052.3) exons 1-29, ??KIT ??(NM_000222.2) exons 8-11 and 17, ??KRAS(NM_033360.3) exons 2-3, ??MPL ??(NM_005373.2) exons 10-12, NPM1(NM_002520.6) exons 9-11, to -30 before exon 11, ??NRA S ??(NM_002524.4) exons 2 and 3, ??PHF6 ??(NM_001015877.1) exons 2 -10, ??PTPN11 ??(NM_002834.3) exons 3-4 and 12-13, ??RAD21 ??(NM_006265.2) exons 1, 2, 4 -7, 9-11, 13, 14, exon 10 flank 15bp, ??RUNX1 ??(NM_001001 890.2) exons 1-6, intron 4 c.725-13T>A and intron 5 c.886+1-4del, ? ?SETBP1 ??(NM_015559.2) partial exon 4; amino acids 400 - 950, SH2B3 ??(LNK) (NM_005475.2) e xon 2-8, ??SF3B1 ??(NM_012433.2) exons 13-16, SRP72 ??(NM_006947.3) exons 6, 10, ??SMC3 ??(NM_005445.3) exons 7, 8, 13, 17, 19, 21, 29, ??SRSF2 ??(N M_003016.4) exons 1 and 2, ??STAG2 ??(NM_001042750.1) exons [...] nomenclatur e v15.11. Released by Signing Pathologist: 06/23/2020 DTL Jolene Neal 4:57 PM Dewayne Alexandra [facility] [employer]ER Interpretation These results are considered preliminary and require complete integration 06/23/2020 DTL with the current pathology case [id number] for final i nterpretation. ??The 4:57 PM result should NOT be interpreted in isolation for the purposes of diagnosis [facility] SC[facility]ER or clinical management. 1. CALR: Chr19(GRCh37):g.13054627_13054628insTTGTC; NM_004343.3(CALR):c.1154_1155insTTGTC; p.Kvl922Ockbp*47 Normal gene/protein function : The ??CALR ??gene, located on chromosome 19p13.2, encodes for calreticulin, a multifunctional protein playing roles in endoplasmic reticulum (ER) protein folding, calcium homeosta sis, cellular proliferation, apoptosis and immunogenic cell (Jose E parham et al., 2013, [id number]). Mutation effect: The p.Bcm101Txxfv*47 frameshift alteration results in a 5 base-pair (bp) insertion, and is the second most commo n type of somatic CALR mutation (type 2, approximately 32%) seen in myeloproliferat otoniel neoplasms (MPN) (Jocy et al., 2013, 98105050; Callie et al., 2013 , 65889315). Pathogenic somatic CALR mutations in MPN reported to date ar e exon 9 frameshift insertions and/or deletions (indels) (Jocy et al., 2013, 33115560; Callie et al., 2013, 19970105; Asya et al., 2019, 94071495). They generate a specific alternative reading frame wit h 1 bp shift resulting in a mutant protein with a C-terminus neoepitope. CALR mutat ions have been identified in the neoplastic hematopoietic stem and progenit or cells. The mutant CALR protein has been shown to bind and constitutivel y activate MPL and the downstream ELSI-STAT pathway. The interaction b etween the mutant CALR and MPL occurs presumptively through a CALR conformati onal change induced by the C-terminus neoepitope (Alec et al., 2016, 49672752; [facility], 46831202; Makenna et al., 2016, 11403547). It has been reported that CALR type 1/like and type 2/like mutants were sufficient to induce a MPN phen otype in retroviral mouse models (Nestor et al., 2016, 98433506; Maryam nicholasoddi et al., 2019, 33453529). Disease associations: Frameshift indel mutations in CA [...] ia (3%) or atypical chronic myeloid leukemia (3%)(Jocy et al., 2013, 52298916; Callie et al., 2013, 11677446; Kaye et al., 20 14, 63089140; Papoo et al., 2014, ??88952660; Temalihai et al., 2014, 30588814). Therapeutic implications: Currently, there is no therapy d irectly targeting CALR mutations in myeloproliferative neoplasm patients. Romulo robles, two kinase inhibitors, ruxolitinib and fedratinib, have [...] e to or intolerance of hydroxyurea (https://www.accessdata.fda.gov/drugsatf da_docs/label/2019/584902b954zcb.pdf). Ruxolitinib demonstrated efficacy in improving constituti onal symptoms and reducing spleen size (Connie et al., 2012, 94303013; Hansel bailey et al., 2012, 44304128). In a phase 2 clinical trial, it demonstrate d modest antileukemic activity as a single agent in patients wi th refractory post-MPN AML (Gloria et al., 2012, 18143079). The FDA has als o approved fedratinib, a JAK2 inhibitor that reduces phosphorylation of STAT3/5, for the treatment of adults with intermediate-2 or high-risk primary or second kasie MF (i.e. post-polycythemia vera or post-essential thrombocythemia MF) (https://www.accessdata.fda.gov/drugsatf da_docs/label/2019/741288g698unz.pdf). 2. SF3B1: Chr2(GRCh37):g.788175933G>C; NM_012433.2(SF3B1):c. 1997A>G; p.Czs042Zkm ? Chr 2(GRCh37):g.928067761V>C; NM_012433.2(SF3B1):c.2098A>G; p.Sxm278Zka Normal gene/protein function: The SF3B1 gene, located on c hromosome 2q33.1, encodes subunit 1 of the splicing factor 3b protein co mplex. This complex is a member of the RNA spliceosome and is involved in 3' splice site recognition and pre-mRNA processing during gene cnc grinder (Milo et al., 2014, 76160420; Natanael et al., 2013, 15966973; Kassie et al., 20 11, 24664247). Mutation effect: The missense p.Bic111Nnx (K666R) mutation occurs in one of the mutation hot spots K666, which is a highly conserved r esidue located in the heat repeats. It has been described as a somatic alterat ion in hematologic neoplasms (http://cancer.[employer].ac.uk/cosmic). ? ?The missense c.2098A>G (p.K700E) variant occurs commonly in hematologic n eoplasms and accounts for more than half of somatic SF3B1 mutations . ??Mutations in SF3B1 contribute to tumorigenesis in hematologic malignancie s through induction of abnormal cnc grinder and alternative gene spli cing (Milo et al., 2014, 99405291; Natanael et al., 2013, 37705592; Kassie et al., 20 11, 43306794). In this case, the detected double SF3B1 mutations may repr esent a biallelic event or tandem mutations involving one allele of the gene, or alternatively two distinct subclonal populations. Disease associations: Somatic mutations in SF3B1 have been identified in both myeloid and lymphoid tumors with similar mutation distributi on (Natanael et al., 2013, 73185507; Wan and Magana, 2013, 03627164; Tobin chavez et al., 2011, 84601631; Janine et al., 2011, 78882702). SF3B1 is mutate d in 20-28% of myelodysplastic syndrome (MDS) and is particularly prevalent (>80%) in MDS with ring sideroblasts (RARS) and the myeloproliferative/mye lodysplastic neoplasm refractory anemia with ring sideroblasts associated with marked thrombocytosis (RARS-T) (Mame and You, 2015, 81317654 ; Janine et al., 2015, 63040194; hCase et al., 2013, 39906547). The pr ognostic significance of SF3B1 mutation in low risk MDS is controvers ial, with some studies finding a favorable impact on outcome and others sb wing no effect after accounting for precise pathologic subclassification (P sandra and You, 2015, 02241897; Janine et al., 2015, 51853 392; Janine et al., 2014, 36090459; Kashifti et al., 2015, 62330740; Natanael hannon t al., 2013, [id number]). In acute myeloid leukemia (AML), SF3B1 mutations are seen in approximately 11% of secondary AML and only 1% of de moe AM L; they are highly associated with secondary AML and a worse clinical outcome (Zully et al., 2015, [id number]). In chronic lymphocytic leukemia (CL L), SF3B1 mutations are seen in approximately 10-15% of cases and are more commonly associated with advanced disease and poor prognosis (Colin and Magana, 2013, [id number]; Natanael et al., 2013, [id number]). Therapeutic implications: There is no currently available th erapy directly targeting spliceosome mutations. Specimen Anatomical Collection Method Collection Time Receive d Time (Source) Location / / Volume Laterality Varies 05/31/2020 10:30 06/02/2020 AM BARK [facility]ALER 10:49 AM BARK SCALER Narrative This result has an attachment that is no t available. Janusz Ardon LAB GENETIC TESTING Performing Organization Address City/State/ZIP Code Phon e Number [facility] - [address] [place], [place] [address] [facility] [place] [address] [facility] [address] documented in this encounter Visit Diagnoses Diagnosis Myelofibrosis (HCC) documented in this encounter
--- OUTSIDE RECORDS SUMMARY | 2022-05-02 12:12 | XMS_ITS | Encounter Summary ---
:1970 Author Organization [facility] Address [address] [place] [address] Care Team Providers Name Role Phone Unavailable Primary Care Provider Unavailable Encounter Details Date Type Department Care Team Description 06/06/2020 Clinical Communication Division of Hematology Janusz Govea, in [facility] 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
--- OUTSIDE RECORDS SUMMARY | 2022-05-02 12:12 | XMS_ITS | Encounter Summary ---
:1970 Author Organization [facility] Address [address] [place] [address] Care Team Providers Name Role Phone Unavailable Primary Care Provider Unavailable Encounter Details Date Type Department Care Team Description 06/09/2020 Orders Only [facility], Myelofibrosis ( HCC) Hematology in [place] (Primary Dx) [address] [place] [phone] Social History Tobacco Use Types Packs/Day Years Used Date Smoking Tobacco: Former Smokeless Tobacco: Never Sex Assigned at Date Recorded 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
--- OUTSIDE RECORDS SUMMARY | 2022-05-02 12:12 | XMS_ITS | Encounter Summary ---
:1970 Author Organization [facility] Address [address] [place] [address] Care Team Providers Name Role Phone Unavailable Primary Care Provider Unavailable Encounter Details Date Type Department Care Team Description 06/05/2020 Orders Only Division of Hematology in [place], [place] [facility] 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
--- OUTSIDE RECORDS SUMMARY | 2022-05-02 12:12 | XMS_ITS | Encounter Summary ---
:1970 Author Organization [facility] Address [address] [place] [address] Care Team Providers Name Role Phone Unavailable Primary Care Provider Unavailable Reason for Visit Reason Comments Med Management eConsult for Actuate 1900 Outpatient (Routine) - Closed Specialty Diagnoses / Procedures Referred By Contact Refer red To Contact Pharmacy Diagnoses [facility]elofibrosis [facility]HCC) [facility] - Investigational (Hem/Onc) eConsult [facility] [address] [place] [phone] Referral ID Status Reason Start Date Expiration Date Visits Requ ested Visits Authorized [id number] Closed 05/25/2020 05/25/2021 1 1 Encounter Details Date Type Department Care Team Description 05/29/2020 Internal E-Consult Department of Reema Govea ma [facility] [address] [place] [phone] Myelofibrosis (HCC) Oncology in Radha Reynolds PharmZahraaD., R.Ph. 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 - 05/29/2020 2:00 PM CST SUBJECTIVE Referring Provider: Janusz Govea M[facility]. Reason for Visit Research eConsult - drug interaction review for eligibility to enroll onto clinical trial Actuate 1900 with 9-ING-41. History of Present Illness Ms. Dobbs is a 50 y.o. female with myelofibrosis. I was asked to review Ms. Dobbs's medications for eligibility to enroll onto clinical trial Actuate 1900, Phase 2 Study of 9-ING-41, a Glycogen Synthase Kinase 3 Beta (GSK 3??) Inhibitor, as a Single Agent or Combined With Ruxolitinib, in Patients With Myelofibrosis. I have reviewed her medications as listed in the most current outpatient medication list. OBJECTIVE Allergies No Known Allergies Current Medications Current Outpatient Medications Medication Sig Dispense Refill ??? FOLIC ACID ORAL Take by mouth daily. ??? ibuprofen (ADVIL,MOTRIN) 200 mg tablet Take 400 mg by mouth as needed for pain. ??? LORazepam (ATIVAN) 0.5 mg tablet Take 0.5 mg by mouth at bedtime. 4 tabs in the pm ??? morphine (MS CONTIN) 60 mg ER tablet Take 1 tablet by mouth 2 (two) times a day. 0 ??? morphine (MSIR) 15 mg tablet Take 15 mg by mouth at bedtime. ??? oxyCODONE (OXY-IR) 5 mg immediate release capsule Take 2 capsules by mouth as needed. ??? sennosides (SENNA LAX) 8.6 mg tablet Take 1 tablet by mouth as needed. ??? sodium-potassium bicarbonate (VASYL-SELTZER GOLD) 344-1,050-1,000 mg tablet, effervescent Take 1 tablet by mouth daily as needed. No current facility-administered medications for this visit. Labs: Lab Results Component Value Date NA 144 05/25/2020 K 4.9 05/25/2020 CL 105 05/25/2020 HCO3 27 02/19/2019 CREATININE 1.04 05/25/2020 EGFR 62 05/25/2020 BUN 19 05/25/2020 ANIONGAP 9 02/19/2019 GLUCOSE 136 05/25/2020 CALCIUM 8.8 05/25/2020 Lab Results Component Value Date WBC 3.3 (L) 05/25/2020 RBC 2.51 (L) 05/25/2020 HGB 6.6 (L) 05/25/2020 HCT 23.3 (L) 05/25/2020 PLT 92 (L) 05/25/2020 Lab Results Component Value Date ALT 15 05/25/2020 AST 29 05/25/2020 ALKPHOS 38 05/25/2020 BILITOT 0.9 05/25/2020 ASSESSMENT / PLAN Research eConsult - drug interaction review for eligibility to enroll onto clinical trial Actuate 1901 with 9-ING-41. RECOMMENDATIONS TO BE REVIEWED WITH THE PROVIDER PRIOR TO THE STUDY START DATE: Ms. Dobbs is not currently receiving any medications that are prohibited on this clinical trial. Please family and marriage counsellor Ms. Dobbs to avoid herbal preparations/supplements such as, but not limited to, Venecia's Wort, Kava, ephedra, gingko biloba, DHEA, yohimbe, saw palmetto, and ginseng. Patients should stop using cannabinoids or herbal preparations/supplements for at least 7 days prior to the first dose of 9-ING-41. The last treatment requires a 14-day or 5 half-live washout. Patient not currently on any active treatment per MD note. No oral therapies (I.e. hydroxyurea) noted in patient's chart as dispensed between -05/29/2020. Patient is currently managed with blood transfusion, folic acid, and darbepoet in. Above recommendations were communicated to the referring provider and child care director via an electronically routed chart. Radha Reynolds Pharm.D., R.Ph. Research Pharmacist AL SERVICE WINDOW CLERK documented in this encounter Plan of Treatment Not on filedocumented as of this encounter Visit Diagnoses Diagnosis Myelofibrosis (HCC) documented in this encounter
--- OUTSIDE RECORDS SUMMARY | 2022-05-02 12:13 | XMS_ITS | Encounter Summary ---
:1970 Author Organization [facility] Address [address] [place] [address] Care Team Providers Name Role Phone No Ref-Primary, Physician Primary Care Provider [phone] Candida Epps MD Unavailable Shala Bell RN Unavailable Unavailable Boaz Garcia MD Unavailable Rodrick Turner MD Unavailable Encounter Details Date Type Department Care Team Description 09/15/2020 Infusion Therapy [facility] Myelop roliferative Visit Cancer Center MD Chriss disorder (H) (Primary Dx) [facility] Medical Ctr [address] [facility] [place] [address] [address] [facility] [place], [place] [address] [address] [place], [place] [phone] (Work) [phone] Social History Tobacco Use Types Packs/Day Years Used Date Smoking Tobacco: Former Cigarettes Quit : 09/27/2012 Smokeless Tobacco: Never Comments: quit September 27, 2012 Alcohol Use Standard Drinks/Week Comments Yes 0 (1 standard drink = 0.6 oz pure alcoho l) 1 drink per week Sex Assigned at Date Recorded Not on file documented as of this encounter Progress Notes Fatuma Amador RN - 09/15/2020 12:00 PM CST Erroneous entry documented in this encounter Plan of Treatment Not on filedocumented as of this encounter Visit Diagnoses Diagnosis 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
--- OUTSIDE RECORDS SUMMARY | 2022-05-02 12:13 | XMS_ITS | Encounter Summary ---
:1970 Author Organization [facility] Address [address] [place] [address] Care Team Providers Name Role Phone Unavailable Primary Care Provider Unavailable Encounter Details Date Type Department Care Team Description 05/23/2020 Orders Only Division of Hematology in [place], [place] [facility] 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
--- OUTSIDE RECORDS SUMMARY | 2022-05-02 12:13 | XMS_ITS | Encounter Summary ---
:1970 Author Organization [facility] Address [address] [place] [address] Care Team Providers Name Role Phone Unavailable Primary Care Provider Unavailable Encounter Details Date Type Department Care Team Description 02/22/2019 Orders Only Division of Dora Sofia, Splenomegaly A cquired Hepatobiliary and R.N. 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
--- OUTSIDE RECORDS SUMMARY | 2022-05-02 12:13 | XMS_ITS | Encounter Summary ---
:1970 Author Organization [facility] Address [address] [place] [phone] Care Team Providers Name Role Phone Unavailable Primary Care Provider Unavailable Encounter Details Date Type Department Care Team Description 05/25/2020 Hospital Encounter Department of Gangat, Myelofib rosis (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 LIPASE, S/P Routine 05/25/2020 11:16 Myelofibrosis (HCC) Resu lts for this AM CIRCLE SHEAR OPERATOR procedure are i n the results section. AMYLASE, TOT, S Routine 05/25/2020 11:16 Myelofibrosis (HCC) R esults for this AM CIRCLE SHEAR OPERATOR procedure are i n the results section. PROTHROMBIN TIME (PT), P Routine 05/25/2020 11:15 Myelofibrosi s (HCC) Results for this AM CIRCLE SHEAR OPERATOR procedure are i n the results section. URIC ACID, S/P Routine 05/25/2020 11:15 Myelofibrosis (HCC) Re sults for this AM CIRCLE SHEAR OPERATOR procedure are i n the results section. BUN (BLOOD UREA Routine 05/25/2020 11:15 Myelofibrosis (HCC) R esults for this NITROGEN), S/P AM CIRCLE SHEAR OPERATOR procedure are in the results section. ALANINE AMINOTRANSFERASE Routine 05/25/2020 11:15 Myelofibrosi s (HCC) Results for this (ALT), S/P AM CIRCLE SHEAR OPERATOR procedure are i n the results section. ASPARTATE Routine 05/25/2020 11:15 Myelofibrosis (HCC) Resu lts for this AMINOTRANSFERASE (AST), AM CIRCLE SHEAR OPERATOR proc edure are in S/P the results section. SODIUM, S/P Routine 05/25/2020 11:15 Myelofibrosis (HCC) Resu lts for this AM CIRCLE SHEAR OPERATOR procedure are i n the results section. PROTEIN, TOTAL, S/P Routine 05/25/2020 11:15 Myelofibrosis (HC C) Results for this AM CIRCLE SHEAR OPERATOR procedure are i n the results section. POTASSIUM, S/P Routine 05/25/2020 11:15 Myelofibrosis (HCC) Re sults for this AM CIRCLE SHEAR OPERATOR procedure are i n the results section. ALKALINE PHOSPHATASE, Routine 05/25/2020 11:15 Myelofibrosis ( HCC) Results for this S/P AM CIRCLE SHEAR OPERATOR procedure are i n the results section. MAGNESIUM, S Routine 05/25/2020 11:15 Myelofibrosis (HCC) Resu lts for this AM CIRCLE SHEAR OPERATOR procedure are i n the results section. GLUCOSE, RANDOM, S/P Routine 05/25/2020 11:15 Myelofibrosis (H CC) Results for this AM CIRCLE SHEAR OPERATOR procedure are i n the results section. CREATININE WITH EGFR, Routine 05/25/2020 11:15 Myelofibrosis ( HCC) Results for this S/P AM CIRCLE SHEAR OPERATOR procedure are i n the results section. CHLORIDE, S/P Routine 05/25/2020 11:15 Myelofibrosis (HCC) Res ults for this AM CIRCLE SHEAR OPERATOR procedure are i n the results section. CALCIUM, TOT, S/P Routine 05/25/2020 11:15 Myelofibrosis (HCC) Results for this AM CIRCLE SHEAR OPERATOR procedure are i n the results section. BILIRUBIN, TOT, S/P Routine 05/25/2020 11:15 Myelofibrosis (HC C) Results for this AM CIRCLE SHEAR OPERATOR procedure are i n the results section. ALBUMIN, S/P Routine 05/25/2020 11:15 Myelofibrosis (HCC) Resu lts for this AM CIRCLE SHEAR OPERATOR procedure are i n the results section. SPSMA RESULT Routine 05/25/2020 11:14 Results for this AM CIRCLE SHEAR OPERATOR procedure are i n the results section. CBC WITH DIFFERENTIAL, B Routine 05/25/2020 11:14 Myelofibrosi s (HCC) Results for this AM CIRCLE SHEAR OPERATOR procedure are i n the results section. 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 1:49 PM CIRCLE SHEAR OPERATOR Comment: CALR mutation is identified in approximately 49-88% of JAK2 and MPL-wild type essential thrombocythemia (ET) and prima ry myelofibrosis (PMF) patients, and at significantly lower frequencies in other myeloid neoplasms such as refractory anemia with ringed sideroblasts associate d with marked thrombocytosis (13%), myelodysplastic syndrome (8%), chron ic myelomonocytic leukemia (3%) or atypical chronic myeloid leukemia (3%). Cor relation with clinical and pathologic findings is required for a definitiv e diagnosis. No further testing for MPL mutation was performed as i t is not indicated per MPNR test algorithm. See test catalogue for additional infor mation. Method summary - CALR: Exon 9 of CALR was amplified from [employer] DNA by polymerase chain reaction (PCR). The size of the PCR p roduct was analyzed by capillary electrophoresis. The analytic sensitivity of this assay is approximately 6% for the majority of CALR mutations an d is approximately 20% for the rare type 1-bp deletion. Peripheral blood, JAK2 V617F mutation analysis: Negative for JAK2 V617F. Method summary - JAK2 V617F analysis: Quantitative, allele-s pecific polymerase chain reaction (PCR) assay was performed using extracted genomic DNA to evaluate for the point mutation causing JAK2 V617F. T he analytic sensitivity of this assay has been determined at 0.06%. Signing Pathologist: Chelsie Montero M.D. Comment: ----ADDITIONAL INFORMATION---- This test was developed and its performa nce characteristics determined by [facility] in a manner consistent with CLIA requirements. This test has not been cleared or approved by the [place] and Drug Administration. Specimen Anatomical Collection Method Collection Time Receive d Time (Source) Location / / Volume Laterality Varies (Blood, 05/25/2020 11:17 0 Venous) AM CIRCLE SHEAR OPERATOR 12:45 PM CIRCLE SHEAR OPERATOR Narrative This result has an attachment that is no t available. Janusz Ardon LAB GENETIC TESTING Performing Organization Address City/State/ZIP Code Phon e Number [facility] - [address] [place], [place] [address] [facility] [place] [address] Laboratories-[facility] [place] [address] Lipase (05/25/2020 11:16 AM CIRCLE SHEAR OPERATOR) athologist Signature Lipase, S 29 13 - 60 U/L 05/25/2020 DTL 12:05 PM CIRCLE SHEAR OPERATOR Specimen Anatomical Collection Method Collection Time Receive d Time (Source) Location / / Volume Laterality Blood (Blood, 05/25/2020 11:16 05/25/2020 Venous) AM CIRCLE SHEAR OPERATOR 11:54 AM CIRCLE SHEAR OPERATOR Janusz Higgins.B.S. LAB BLOOD ADD-ON Performing Organization Address City/[facility]/ZIP Code Phon e Number [facility] - [address] [place], [place] [address] [place] [address] [place] [address] Laboratories-[address] Amylase, Total (05/25/2020 11:16 AM CIRCLE SHEAR OPERATOR) P athologist Signature Amylase, Total, 28 26 - 102 05/25/2020 DTL S U/L 12:05 PM CIRCLE SHEAR OPERATOR Specimen Anatomical Collection Method Collection Time Receive d Time (Source) Location / / Volume Laterality Blood (Blood, 05/25/2020 11:16 05/25/2020 Venous) AM CIRCLE SHEAR OPERATOR 11:54 AM CIRCLE SHEAR OPERATOR Janusz Higgins.B.S. LAB BLOOD ADD-ON Performing Organization Address City/[facility] Phon e Number [facility] - [address] [place], [place] [address] [place] [phone] (ABNORMAL) Prothrombin Time (PT) (05/25/2020 11:15 AM CIRCLE SHEAR OPERATOR) Patholo gist Method Time Signature Prothrombin 13.7 (H) 9.4 - 12.5 05/25/2020 DTL Time, P sec 12:32 PM CIRCLE SHEAR OPERATOR INR 1.2 0.9 - 1.1 05/25/2020 DTL 12:32 PM CIRCLE SHEAR OPERATOR Comment: ----ADDITIONAL INFORMATION---- Standard intensity warfarin therapeutic range: 2.0 to 3.0 ?? High intensity warfarin therapeutic rang e: 2.5 to 3.5 Specimen Anatomical Collection Method Collection Time Receive d Time (Source) Location / / Volume Laterality Blood (Blood, 05/25/2020 11:15 05/25/2020 Venous) AM CIRCLE SHEAR OPERATOR 11:41 AM CIRCLE SHEAR OPERATOR Janusz Higgins.B.S. LAB BLOOD ADD-ON Performing Organization Address City/[facility]/ZIP Code Phon e Number [facility] - [address] [place], [place] [address] [place] [address] [facility] [address] [facility] Glucose, Random (05/25/2020 11:15 AM CIRCLE SHEAR OPERATOR) athologist Signature Glucose, S 136 70 - 140 05/25/2020 DTL mg/dL 12:03 PM CIRCLE SHEAR OPERATOR Specimen Anatomical Collection Method Collection Time Receive d Time (Source) Location / / Volume Laterality Blood (Blood, 05/25/2020 11:15 05/25/2020 Venous) AM CIRCLE SHEAR OPERATOR 11:48 AM CIRCLE SHEAR OPERATOR Janusz Higgins.B.S. LAB BLOOD TROPONIN Performing Organization Address City/State/ZIP Code Phon e Number [facility] - [address] (ABNORMAL) Uric Acid (05/25/2020 11:15 AM CIRCLE SHEAR OPERATOR) athologist Signature Uric Acid, S 9.2 (H) 2.7 - 6.1 05/25/2020 DTL mg/dL 12:03 PM CIRCLE SHEAR OPERATOR Specimen Anatomical Collection Method Collection Time Receive d Time (Source) Location / / Volume Laterality Blood (Blood, 05/25/2020 11:15 05/25/2020 Venous) AM CIRCLE SHEAR OPERATOR 11:48 AM CIRCLE SHEAR OPERATOR Janusz Dillon.B.B.S. LAB BLOOD ADD-ON Performing Organization Address City/State/ZIP Code Phon e Number [facility] - [address] [place], [place] [address] [place] [address] Creatinine with Estimated GFR (05/25/2020 11:15 AM CIRCLE SHEAR OPERATOR) athologist Signature Creatinine 1.04 0.59 - 05/25/2020 DTL 1.04 mg/dL 12:03 PM CIRCLE SHEAR OPERATOR eGFR-Non 62 >=60 05/25/2020 DT Black/ mL/min/BSA 12:03 PM CIRCLE SHEAR OPERATOR Uzbek Comment: ----ADDITIONAL INFORMATION---- Estimated GFR calculated using the 2009 CKD_EPI creatinine equation. eGFR-Black/ 71 >=60 mL/min/BSA 2019 12:03 PM CIRCLE SHEAR OPERATOR DTL Comment: ----ADDITIONAL INFORMATION---- Estimated GFR calculated using the 2009 CKD_EPI creatinine equation. Specimen Anatomical Collection Method Collection Time Receive d Time (Source) Location / / Volume Laterality Blood (Blood, 05/25/2020 11:15 05/25/2020 Venous) AM CIRCLE SHEAR OPERATOR 11:48 AM CIRCLE SHEAR OPERATOR Janusz Govea M.B.B.S. LAB BLOOD ADD-ON Performing Organization Address City/State/ZIP Code Phon e Number [facility] - [address] BUN (Blood Urea Nitrogen) (05/25/2020 11:15 AM CIRCLE SHEAR OPERATOR) P athologist Signature BUN (Blood Urea 19 6 - 21 05/25/2020 DTL Nitrogen), S mg/dL 12:03 PM CIRCLE SHEAR OPERATOR Specimen Anatomical Collection Method Collection Time Receive d Time (Source) Location / / Volume Laterality Blood (Blood, 05/25/2020 11:15 05/25/2020 Venous) AM CIRCLE SHEAR OPERATOR 11:48 AM CIRCLE SHEAR OPERATOR Janusz Govea M.B.B.S. LAB BLOOD ADD-ON Performing Organization Address City/[facility]/ZIP [facility] Phon e Number [facility] - [address] Alkaline Phosphatase (05/25/2020 11:15 AM CIRCLE SHEAR OPERATOR) P athologist Signature Alkaline 38 35 - 104 05/25/2020 DTL Phosphatase, S U/L 12:03 PM CIRCLE SHEAR OPERATOR Specimen Anatomical Collection Method Collection Time Receive d Time (Source) Location / / Volume Laterality Blood (Blood, 05/25/2020 11:15 05/25/2020 Venous) AM CIRCLE SHEAR OPERATOR 11:48 AM CIRCLE SHEAR OPERATOR Nasjonathan Govea M.B.B.S. LAB BLOOD ADD-ON Performing Organization Address City/State/ZIP Code Phon e Number [facility] - [address] [place], [place] [address] [place] [address] [place] [address] [facility] [address] AST (Aspartate Aminotransferase) (05/25/2020 11:15 AM CIRCLE SHEAR OPERATOR) Patholo gist Method Time Signature Aspartate 29 8 - 43 05/25/2020 DTL Aminotransferase U/L 12:03 PM CIRCLE SHEAR OPERATOR (AST), S Specimen Anatomical Collection Method Collection Time Receive d Time (Source) Location / / Volume Laterality Blood (Blood, 05/25/2020 11:15 05/25/2020 Venous) AM CIRCLE SHEAR OPERATOR 11:48 AM CIRCLE SHEAR OPERATOR Naseema Gangat M.B.B.S. LAB BLOOD ADD-ON Performing Organization Address City/State/ZIP Code Phon e Number [facility] - [address] [place], [place] [address] [place] [address] ALT (Alanine Aminotransferase) (05/25/2020 11:15 AM CIRCLE SHEAR OPERATOR) [facility] Method Time Signature Alanine 15 7 - 45 05/25/2020 DTL Aminotransferase U/L 12:03 PM CIRCLE SHEAR OPERATOR (ALT), S Specimen Anatomical Collection Method Collection Time Receive d Time (Source) Location / / Volume Laterality Blood (Blood, 05/25/2020 11:15 05/25/2020 Venous) AM CIRCLE SHEAR OPERATOR 11:48 AM CIRCLE SHEAR OPERATOR Naseema Gangat M.B.B.S. LAB BLOOD ADD-ON Performing Organization Address City/State/ZIP Code Phon e Number [facility] - [address] [place], [place] [address] [place] [address] Bilirubin, Total (05/25/2020 11:15 AM CIRCLE SHEAR OPERATOR) P athologist Signature Bilirubin, 0.9 <=1.2 mg/dL 05/25/2020 DTL Total, S 12:03 PM CIRCLE SHEAR OPERATOR Specimen Anatomical Collection Method Collection Time Receive d Time (Source) Location / / Volume Laterality Blood (Blood, 05/25/2020 11:15 05/25/2020 Venous) AM CIRCLE SHEAR OPERATOR 11:48 AM CIRCLE SHEAR OPERATOR Naseema Gangat M.B.B.S. LAB BLOOD ADD-ON Performing Organization Address City/State/ZIP Code Phon e Number [facility] - [address] [place], [place] [address] [place] [address] [facility] [address] Albumin (05/25/2020 11:15 AM CIRCLE SHEAR OPERATOR) athologist Signature Albumin, S 4.4 3.5 - 5.0 05/25/2020 DTL g/dL 12:03 PM CIRCLE SHEAR OPERATOR Specimen Anatomical Collection Method Collection Time Receive d Time (Source) Location / / Volume Laterality Blood (Blood, 05/25/2020 11:15 05/25/2020 Venous) AM CIRCLE SHEAR OPERATOR 11:48 AM CIRCLE SHEAR OPERATOR Janusz Govea M.B.B.S. LAB BLOOD ADD-ON Performing Organization Address City/State/[facility] Phon e Number [facility] - [address] [place] [address] [address] [facility] (ABNORMAL) Protein, Total (05/25/2020 11:15 AM CIRCLE SHEAR OPERATOR) athologist Signature Protein, 6.2 (L) 6.3 - 7.9 05/25/2020 DTL Total, S g/dL 12:03 PM CIRCLE SHEAR OPERATOR Specimen Anatomical Collection Method Collection Time Receive d Time (Source) Location / / Volume Laterality Blood (Blood, 05/25/2020 11:15 05/25/2020 Venous) AM CIRCLE SHEAR OPERATOR 11:48 AM CIRCLE SHEAR OPERATOR Janusz Govea M.B.B.S. LAB BLOOD ADD-ON Performing Organization Address City/[facility] Code Phon e Number [facility] - [address] [place] [address] Calcium, Total (05/25/2020 11:15 AM CIRCLE SHEAR OPERATOR) athologist Signature Calcium, Total, 8.8 8.6 - 10.0 05/25/2020 DTL S mg/dL 12:03 PM CIRCLE SHEAR OPERATOR Specimen Anatomical Collection Method Collection Time Receive d Time (Source) Location / / Volume Laterality Blood (Blood, 05/25/2020 11:15 05/25/2020 Venous) AM CIRCLE SHEAR OPERATOR 11:48 AM CIRCLE SHEAR OPERATOR Janusz Govea M.B.B.S. LAB BLOOD ADD-ON Performing Organization Address City/State/ZIP [facility] Phon e Number [facility] - [address] Chloride (05/25/2020 11:15 AM CIRCLE SHEAR OPERATOR) athologist Signature Chloride, S 105 98 - 107 05/25/2020 DTL mmol/L 12:03 PM CIRCLE SHEAR OPERATOR Specimen Anatomical Collection Method Collection Time Receive d Time (Source) Location / / Volume Laterality Blood (Blood, 05/25/2020 11:15 05/25/2020 Venous) AM CIRCLE SHEAR OPERATOR 11:48 AM CIRCLE SHEAR OPERATOR Janusz Govea M.B.B.S. LAB BLOOD ADD-ON Performing Organization Address City/State/[facility] Phon e Number [facility] - [address] [address] [facility] [address] (ABNORMAL) Magnesium (05/25/2020 11:15 AM CIRCLE SHEAR OPERATOR) athologist Signature Magnesium, S 2.5 (H) 1.7 - 2.3 05/25/2020 DTL mg/dL 12:03 PM CIRCLE SHEAR OPERATOR Specimen Anatomical Collection Method Collection Time Receive d Time (Source) Location / / Volume Laterality Blood (Blood, 05/25/2020 11:15 05/25/2020 Venous) AM CIRCLE SHEAR OPERATOR 11:48 AM CIRCLE SHEAR OPERATOR Janusz Govea M.B.B.S. LAB BLOOD ADD-ON Performing Organization Address City/State/[facility] Code Phon e Number [facility] - [address] [place] [address] [address] [place] [address] [facility] [address] Potassium (05/25/2020 11:15 AM CIRCLE SHEAR OPERATOR) athologist Signature Potassium, S 4.9 3.6 - 5.2 05/25/2020 DTL mmol/L 12:03 PM CIRCLE SHEAR OPERATOR Specimen Anatomical Collection Method Collection Time Receive d Time (Source) Location / / Volume Laterality Blood (Blood, 05/25/2020 11:15 05/25/2020 Venous) AM CIRCLE SHEAR OPERATOR 11:48 AM CIRCLE SHEAR OPERATOR Nasjonathan Mcdonaldgat M.B.B.S. LAB BLOOD ADD-ON Performing Organization Address City/State/ZIP Code Phon e Number [facility] - [address] [place], [place] [address] [place], [place] [id number] [facility] 200 [facility] Sodium (05/25/2020 11:15 AM CIRCLE SHEAR OPERATOR) P athologist Signature Sodium, S 144 135 - 145 05/25/2020 DTL mmol/L 12:03 PM CIRCLE SHEAR OPERATOR Specimen Anatomical Collection Method Collection Time Receive d Time (Source) Location / / Volume Laterality Blood (Blood, 05/25/2020 11:15 05/25/2020 Venous) AM CIRCLE SHEAR OPERATOR 11:48 AM CIRCLE SHEAR OPERATOR Janusz ArringtonB.S. LAB BLOOD ADD-ON Performing Organization Address City/[facility] Phon e Number [facility] - [address] (ABNORMAL) Morphology Evaluation (Special Smear) (05/25/2020 11:14 AM CIRCLE SHEAR OPERATOR) Analysis Performed At Patho logist Time Signature Neutrophilic Segs 82 (H) 50 - 75 % 05/25/2020 DHPM and Bands 12:56 PM CIRCLE SHEAR OPERATOR Lymphocytes 10 (L) 18 - 42 % 05/25/2020 DHPM 12:56 PM CIRCLE SHEAR OPERATOR Eosinophils 1 1 - 3 % 05/25/2020 DHPM 12:56 PM CIRCLE SHEAR OPERATOR Basophils 1 0 - 2 % 05/25/2020 PM 12:56 PM CIRCLE SHEAR OPERATOR Myelocytes 6 (H) <0.5 % 05/25/2020 DHPM 12:56 PM CIRCLE SHEAR OPERATOR Nucleated RBC 5 /100 WBC 05/25/2020 DHPM 12:56 PM CIRCLE SHEAR OPERATOR Manual Absolute 2.71 1.56 - 05/25/2020 DHPM Neutrophil Count 6.45 12:56 PM CIRCLE SHEAR OPERATOR x10(9)/L Comment: ----ADDITIONAL INFORMATION---- The manual absolute neutrophil count is derived from a manual differential count and therefore is not exactly comparable to the automated absolute halie trophil count. Specimen Anatomical Collection Method Collection Time Receive d Time (Source) Location / / Volume Laterality Blood 05/25/2020 11:14 05/25/2020 AM CIRCLE SHEAR OPERATOR 11:41 AM CIRCLE SHEAR OPERATOR Janusz ArringtonB.S. LAB BLOOD ADD-ON Performing Organization Address City/[facility] Phon e Number [facility] - [address] [place] [address] Laboratories-[facility] [address] (ABNORMAL) CBC with Differential, Blood (05/25/2020 11:14 AM CIRCLE SHEAR OPERATOR) [facility] gist Method Time Signature Hemoglobin 6.6 (L) 11.6 - 05/25/2020 DTL 15.0 g/dL 11:53 AM CIRCLE SHEAR OPERATOR Hematocrit 23.3 (L) 35.5 - 05/25/2020 DTL 44.9 % 11:53 AM CIRCLE SHEAR OPERATOR Erythrocytes 2.51 (L) 3.92 - 05/25/2020 DTL 5.13 11:53 AM CIRCLE SHEAR OPERATOR x10(12)/L MCV 92.8 78.2 - 05/25/2020 DTL 97.9 fL 11:53 AM CIRCLE SHEAR OPERATOR RBC Distrib Width 28.9 (H) 12.2 - 05/25/2020 DTL 16.1 % 12:56 PM CIRCLE SHEAR OPERATOR Platelet Count 92 (L) 157 - 371 05/25/2020 DTL x10(9)/L 12:56 PM CIRCLE SHEAR OPERATOR Comment: Large platelets - count approxi mate. Leukocytes 3.3 (L) 3.4 - 9.6 x10(9)/L 05/25/2020 12:56 PM CIRCLE SHEAR OPERATOR DTL Comment: Results confirmed by smear. Neutrophils SeeComment 1.56 - 6.45 x10(9)/L 05/25/2020 12:56 PM CIRCLE SHEAR OPERATOR DTL Comment: Auto-diff results not valid. Se e manual differential. Specimen Anatomical Collection Method Collection Time Receive d Time (Source) Location / / Volume Laterality Blood (Blood, 05/25/2020 11:14 05/25/2020 Venous) AM CIRCLE SHEAR OPERATOR 11:41 AM CIRCLE SHEAR OPERATOR Janusz Ardon LAB BLOOD ADD-ON Performing Organization Address City/State/ZIP Code Phon e Number [facility] - [address] [place], [place] [address] [facility] [address] Laboratories-[facility] [address] documented in this encounter Visit Diagnoses Diagnosis Myelofibrosis (HCC) documented in this encounter
--- OUTSIDE RECORDS SUMMARY | 2022-05-02 12:13 | XMS_ITS | Encounter Summary ---
:1970 Author Organization [facility] Address [address] [place] [address] Care Team Providers Name Role Phone Unavailable Primary Care Provider Unavailable Reason for Visit Reason Onset Date Comments Please call Dr. 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 She stated that Dr. Dylon Cr would like to speak with Dr. Govea. Please call him at 4 pm if you are able. If earlier, they may need to call him from a room but they are willing to do that if necessary. Please call: [phone] Thank you, Bertha documented in 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
--- OUTSIDE RECORDS SUMMARY | 2022-05-02 12:13 | XMS_ITS | Encounter Summary ---
:1970 Author Organization [facility] Address [address] [place] [address] Care Team Providers Name Role Phone Unavailable Primary Care Provider Unavailable Reason for Visit Outpatient (Routine) - Closed Specialty Diagnoses / Procedures Referred By Contact Refer red To Contact Radiology Diagnoses Myelofibrosis (HCC) [facility] Procedures MR Abdomen without IV Contrast MR Abdomen without and with IV Contrast [facility] MRI ABDOMEN WO/W CNTRST [address] [place] [phone] Referral ID Status Reason Start Date Expiration Date Visits Requ ested Visits Authorized [id number] Closed 05/22/2020 05/23/2021 1 1 Encounter Details Date Type Department Care Team Description 05/25/2020 Hospital Encounter Department of Estrellita Govea (Patient: Radiology, Lexus Boudreaux, Kerry) [facility] in [place], [place] [address] [place] [address] [place] [phone] Social History Tobacco Use Types Packs/Day Years Used Date Smoking Tobacco: Former Smokeless Tobacco: Never Sex Assigned at Date Recorded 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
--- OUTSIDE RECORDS SUMMARY | 2022-05-02 12:13 | XMS_ITS | Encounter Summary ---
:1970 Author Organization [facility] Address [address] [place] [address] Care Team Providers Name Role Phone Unavailable Primary Care Provider Unavailable Reason for Visit Reason Comments Intake Assessment Encounter Details Date Type Department Care Team Description 05/24/2020 Clinical Communication Division of Tim Govea Hematology in [place], [place] M.B.B.S. 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 FICIAL FLOWER MAKER documented in 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
--- OUTSIDE RECORDS SUMMARY | 2022-05-02 12:13 | XMS_ITS | Encounter Summary ---
:1970 Author Organization [facility] Address [address] [place] [address] Care Team Providers Name Role Phone Unavailable Primary Care Provider Unavailable Reason for Referral Outpatient (Routine) - Closed Specialty Diagnoses / Procedures Referred By Contact Refer red To Contact Hematology Oncology Janusz Govea [place] M.B.B.SZahraa [address] [place] [phone] Referral ID Status Reason Start Date Expiration Date Visits Requ ested Visits Authorized [id number] Closed 05/19/2020 05/19/2021 1 1 Scheduling Instructions At 10 am. Thank you. 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 - 05/19/2020 2:28 PM MATTRESS FILLING MACHINE TENDER Addended by: NUVIA RODRIGUEZ on: 06/20/2020 11:56 AM Modules accepted: Orders RESS FILLING MACHINE TENDER documented in this encounter Plan of Treatment Scheduled Referrals Name Type Priority Associated Order Schedule Diagnoses Hematology office Outpatient Referral Routine Exp ected: visit (clinic) 05/25/2020 (Approximate), Expires: 05/19/2023 documented as of this encounter Results Type and Screen (with reflex Antibody ID) (07/17/2020 9:41 AM MATTRESS FILLING MACHINE TENDER) [facility] Social Media Broadcasts (SMB) Limited Method Time Signature ABORh A Pos Not 07/17/2020 ETRM applicable 12:30 PM MATTRESS FILLING MACHINE TENDER Antibody Negative Negative 07/17/2020 ETRM Screen 12:38 PM MATTRESS FILLING MACHINE TENDER Type & Screen 07/20/2020 07/17/2020 ETRM Expiration 23:59 12:30 PM MATTRESS FILLING MACHINE TENDER Testing [place] DEFAULT 07/17/2020 ETRM Location 10:00 AM MATTRESS FILLING MACHINE TENDER Specimen Anatomical Collection Method Collection Time Receive d Time (Source) Location / / Volume Laterality Blood (Blood, 07/17/2020 9:41 AM 07/17/19 21 Venous) MATTRESS FILLING MACHINE TENDER 10:00 AM MATTRESS FILLING MACHINE TENDER Janusz AlexandraSZahraa LAB BLOOD BANK TEST ORDERABL ES Performing Organization Address City/State/ZIP Code Phon e Number [facility] - [address] [place], [place] [address] [place] [address] Laboratories-[facility] [address] Type and Screen (with reflex Antibody ID) (07/10/2020 6:47 AM MATTRESS FILLING MACHINE TENDER) [facility] Social Media Broadcasts (SMB) Limited Method Time Signature ABORh A Pos Not 07/10/2020 ETRM applicable 9:56 AM MATTRESS FILLING MACHINE TENDER Antibody Negative Negative 07/10/2020 ETRM Screen 9:13 AM MATTRESS FILLING MACHINE TENDER Type & Screen 07/13/2020 07/10/2020 ETRM Expiration 23:59 9:13 AM MATTRESS FILLING MACHINE TENDER Testing [place] DEFAULT 07/10/2020 ETRM Location 8:25 AM MATTRESS FILLING MACHINE TENDER Specimen Anatomical Collection Method Collection Time Receive d Time (Source) Location / / Volume Laterality Blood (Blood, 07/10/2020 6:47 AM 07/10/20 20 8:25 Venous) MATTRESS FILLING MACHINE TENDER AM MATTRESS FILLING MACHINE TENDER Janusz ArringtonBZahraaSZahraa LAB BLOOD BANK TEST ORDERABL ES Performing Organization Address City/State/ZIP Code Phon e Number [facility] - 200 [place], [place] [address] [place] [address] [address] Type and Screen (with reflex Antibody ID) (07/03/2020 7:46 AM MATTRESS FILLING MACHINE TENDER) [facility] gist Method Time Signature ABORh A Pos Not 07/03/2020 ETRM applicable 9:23 AM MATTRESS FILLING MACHINE TENDER Antibody Negative Negative 07/03/2020 ETRM Screen 9:35 AM MATTRESS FILLING MACHINE TENDER Type & Screen 07/06/2020 07/03/2020 ETRM Expiration 23:59 9:23 AM MATTRESS FILLING MACHINE TENDER Testing [place] DEFAULT 07/03/2020 ETRM Location 8:18 AM MATTRESS FILLING MACHINE TENDER Specimen Anatomical Collection Method Collection Time Receive d Time (Source) Location / / Volume Laterality Blood (Blood, 07/03/2020 7:46 AM 07/03/20 20 8:18 Venous) MATTRESS FILLING MACHINE TENDER AM MATTRESS FILLING MACHINE TENDER Janusz Holt.SZahraa LAB BLOOD BANK TEST ORDERABL ES Performing Organization Address City/[facility] Code Phon e Number [facility] - 200 [place], [place] [address] [place] [address] [facility] [address] [facility] Type and Screen (with reflex Antibody ID) (06/27/2020 8:00 AM MATTRESS FILLING MACHINE TENDER) [facility] gist Method Time Signature ABORh A Pos Not 06/27/2020 ETRM applicable 10:17 AM MATTRESS FILLING MACHINE TENDER Antibody Negative Negative 06/27/2020 ETRM Screen 10:29 AM MATTRESS FILLING MACHINE TENDER Type & Screen 06/30/2020 06/27/2020 ETRM Expiration 23:59 10:17 AM MATTRESS FILLING MACHINE TENDER Testing [place] DEFAULT 06/27/2020 ETRM Location 8:36 AM MATTRESS FILLING MACHINE TENDER Specimen Anatomical Collection Method Collection Time Receive d Time (Source) Location / / Volume Laterality Blood (Blood, 06/27/2020 8:00 AM 06/27/20 20 8:36 Venous) MATTRESS FILLING MACHINE TENDER AM MATTRESS FILLING MACHINE TENDER Janusz ArringtonB.SZahraa LAB BLOOD BANK TEST ORDERABL ES Performing Organization Address City/[facility] Code Phon e Number [facility] - 200 [place], [place] [address] [place] [address] [facility] [address] documented in this encounter Visit Diagnoses Diagnosis Myelofibrosis (HCC) - Primary documented in this encounter
--- OUTSIDE RECORDS SUMMARY | 2022-05-02 12:13 | XMS_ITS | Clinical Summary ---
:1970 [address] [facility] Address [address] [place] [address] Care Team Providers Name Role Phone No Ref-Primary, Physician Primary Care Provider [phone] Candida Epps MD Unavailable Allergies Active Allergy Reactions Severity Noted Date Comments Latex 10/15/2010 PN: Converted f rom LW Latex Sensitivity Flag Medications Medication Sig Dispensed Refills Start Date End Date Status oxyCODONE Take 1-2 tablets 30 tablet 0 08/28/2015 Ac tive (ROXICODONE) 5 MG (5-10 mg) by mouth immediate release every 6 hours as tablet needed for moderate to severe pain senna-docusate Take 1 tablet by 60 tablet 1 08/28/2015 Active (SENOKOT-S;PERICOLACE mouth 2 times daily ) 8.6-50 MG per tablet MORPHINE SULFATE PO Take 60 mg by mouth 0 Active 2 times daily (Takes 15 mg extra BID if not working) LORAZEPAM PO Take 0.5 mg by 0 Ac tive mouth every 6 hours as needed for anxiety ibuprofen Take 200 mg by 0 Activ e (ADVIL/MOTRIN) 200 MG mouth every 6 hours tablet as needed for mild pain (headaches) Sodium Take 1 tablet by 0 Act otoniel Bicarbonate-Citric mouth Acid (VASYL-SELTZER HEARTBURN PO) sodium-potassium Take 1 tablet by 0 Active bicarbonate-citric mouth acid (VASYL-SELTZER GOLD) [id number] MG TBEF solu-tab folic acid (FOLVITE) 0 07/01/2019 Active 1 MG tablet Active Problems Problem Noted Date Myeloproliferative disorder 02/10/2017 Immunizations Name Administration Dates Next Due Hib (PRP-T) 02/04/2019 (Deferred: Contraindication - not available in clinic.) Meningococcal (Menomune??) 02/04/2019 (Deferred: Contraindic ation - not available in clinic) Pneumococcal 23 valent 02/04/2019 (Deferred: Contraindicatio n - not available in clinic) Social History Tobacco Use Types Packs/Day Years Used Date Smoking Tobacco: Former Cigarettes Quit : 09/27/2012 Smokeless Tobacco: Never Comments: quit September 27, 2012 Alcohol Use Standard Drinks/Week Comments Yes 0 (1 standard drink = 0.6 oz pure alcoho l) 1 drink per week Sex Assigned at Date Recorded Not on file Last Filed Vital Signs Vital Sign Reading Time Taken Comments Blood Pressure 118/72 05/29/2020 2:20 PM MACHINE ASSEMBLER FOR PULLER OVER Pulse 63 05/29/2020 2:20 PM MACHINE ASSEMBLER FOR PULLER OVER Temperature 36.4 ??C (97.6 ??F) 05/29/2020 2:20 PM MACHINE ASSEMBLER FOR PULLER OVER Respiratory Rate 16 05/29/2020 2:20 PM MACHINE ASSEMBLER FOR PULLER OVER Oxygen Saturation 98% 05/29/2020 1:09 PM MACHINE ASSEMBLER FOR PULLER OVER Inhaled Oxygen Concentration - - Weight 92.5 kg (203 lb 14.4 oz) 07/29/2019 9:51 AM MACHINE ASSEMBLER FOR PULLER OVER Height 169.5 cm (5' 6.75) 07/29/2019 9:51 AM MACHINE ASSEMBLER FOR PULLER OVER Body Mass Index 32.17 07/29/2019 9:51 AM MACHINE ASSEMBLER FOR PULLER OVER Plan of Treatment Health Maintenance Due Date Last Done Comments ADVANCE CARE PLANNING 1970 ANNUAL REVIEW OF HM ORDERS 1968 CT COLONOGRAPHY 1968 FIT-DNA (Cologuard) 1968 FIT 1968 FLEX SIG 1968 HEPATITIS B IMMUNIZATION (1 1968 of 3 - 3-dose series) MAMMO SCREENING 1968 COVID-19 Vaccine (#1) 1968 COLONOSCOPY 1978 COLORECTAL CANCER SCREENING 1978 HIV SCREENING 1983 HEPATITIS C SCREENING 1986 PAP 1989 DTAP/TDAP/TD IMMUNIZATION (1 1993 - Tdap) YEARLY PREVENTIVE VISIT 01/23/2000 01/22/1999 LIPID 2013 LUNG CANCER SCREENING 2018 ZOSTER IMMUNIZATION (1 of 2) 2018 PHQ-2 (once per calendar 07/14/2021 07/29/2019, year) 02/04/2019 INFLUENZA VACCINE (#1) 2022 05/22/2018 IPV IMMUNIZATION Aged Out No longer eligi ble based on patient's age to complete this to pic MENINGITIS IMMUNIZATION Aged Out No longe r eligible based on patient's age to complete this to pic Pneumococcal Vaccine: Aged Out No longer eligible based Pediatrics (0 to 5 Years) and on patient's age to At-Risk Patients (6 to 64 comple te this topic Years) Care Teams Language Assistant Relationship Specialty Start Date End Date No Ref-Primary, Physician PCP - General 09/30/17 aCndida Epps MD MD Internal Medicine 01/15/[address] [place] [address]
--- OUTSIDE RECORDS SUMMARY | 2022-05-02 12:13 | XMS_ITS | Encounter Summary ---
:1970 Author Organization [facility] Address [address] [place] [address] Care Team Providers Name Role Phone No Ref-Primary, Physician Primary Care Provider [phone] Candida Epps MD Unavailable Shala Bell RN Unavailable Unavailable Boaz Garcia MD Unavailable Rodrick Turner MD Unavailable Encounter Details Date Type Department Care Team Description 10/26/[address] [facility] Myelop roliferative Visit Cancer Center MD Chriss disorder (H) (Primary Dx) [facility] ONCOLOGY [facility] Medical Ctr [address] [facility] [place] [address] [address] [place], [place] 200 [address] [place], [place] [phone] (Work) [phone] Social History Tobacco Use Types Packs/Day Years Used Date Smoking Tobacco: Former Cigarettes Quit : 09/27/2012 Smokeless Tobacco: Never Comments: quit September 27, 2012 Alcohol Use Standard Drinks/Week Comments Yes 0 (1 standard drink = 0.6 oz pure alcoho l) 1 drink per week Sex Assigned at Date Recorded Not on file documented as of this encounter Progress Notes Fatuma Amador RN - 10/26/2020 1:30 PM CDT Erroneous entry documented in this encounter Plan of Treatment Not on filedocumented as of this encounter Visit Diagnoses Diagnosis 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
--- OUTSIDE RECORDS SUMMARY | 2022-05-02 12:13 | XMS_ITS | Encounter Summary ---
:1970 Author Organization [facility] Address [address] [place] [address] Care Team Providers Name Role Phone Unavailable Primary Care Provider Unavailable Encounter Details Date Type Department Care Team Description 05/24/2020 Documentation [facility] [address] [facility] [address] [place] [phone] [place], [place] [phone] Social History Tobacco Use Types Packs/Day Years Used Date Smoking Tobacco: Former Smokeless Tobacco: Never Sex Assigned at Date Recorded Female 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
--- OUTSIDE RECORDS SUMMARY | 2022-05-02 12:13 | XMS_ITS | Encounter Summary ---
:1970 Author Organization [facility] Address [address] [place] [address] Care Team Providers Name Role Phone Unavailable Primary Care Provider Unavailable Reason for Visit Outpatient (Routine) - Closed Specialty Diagnoses / Procedures Referred By Contact Refer red To Contact General Surgery Diagnoses [facility]elofibrosis ([facility]CC) [facility]a [address] [place] [phone] Referral ID Status Reason Start Date Expiration Date Visits Requ ested Visits Authorized [id number] Closed 02/19/2019 02/19/2020 1 1 Encounter Details Date Type Department Care Team Description 02/22/2019 Comprehensive Visit Division of Hema Rothman Acquired (Primary Dx); Hepatobiliary and Dewayne Brito Myelofibrosis (HCC) Pancreas Surgery in [address] [place] [address] [place] [phone] [place], [place] [phone] (Work) [phone] Social History Tobacco Use Types Packs/Day Years Used Date Smoking Tobacco: Former Smokeless Tobacco: Never Sex Assigned at Date Recorded Female 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 - 02/22/2019 10:00 AM CDT SUBJECTIVE REASON FOR CONSULT Jennifer Dobbs is a 48 y.o. female who presents for evaluation of symptomatic splenomegaly. She wasreferred by Janusz Govea M.B.B.S. HISTORY OF PRESENT ILLNESS Ms. Dobbs was referred for evaluation of symptomatic splenomegaly. She has a history of MDS and hasbeen receiving frequent transfusions. She had not had problems with neutropenia or thrombocytopenia.She endorses early satiety, nausea and vomiting with 70 pound weight loss and constant left flank pain for which she takes narcotics for. WE do not have any images but her most recent outside CT scan reports marked interval increase in size in the spleen now measuring 30.2 cm from previously 19.9 cm. She also has evidence of splenic infarcts. The ECOG performance status is 2 - symptomatic, <50% confined to bed. Recently her weight has been more stable The following portions of the patient's history were reviewed and updated as appropriate: allergies,current medications, family history, medical history, social history, surgical history and problem list. REVIEW OF SYSTEMS Pertinent items are noted in HPI; all other review of systems was negative. OBJECTIVE PHYSICAL EXAM General appearance: alert, oriented, and no acute distress. No previous abdominal incisions Massive splenomegaly Diagnostics Lab Results Component Value Date HGB 8.0 (L) 02/19/2019 HCT 26.8 (L) 02/19/2019 RBC 3.03 (L) 02/19/2019 MCV 88.4 02/19/2019 RDW 24.0 (H) 02/19/2019 WBC 4.2 02/19/2019 PLT 137 (L) 02/19/2019 INR 1.2 12/25/2016 BILITOT 1.3 (H) 02/19/2019 AST 21 02/19/2019 ALKPHOS 37 02/19/2019 ALBUMIN 4.4 02/19/2019 Laboratory studies were reviewed and notable for anemia but no evidence of thrombocytopenia or neutropenia. Liver and kidney function studies are within normal limits. Albumin is 4.4 Imaging: Outside CT report was reviewed but I do not have the images ASSESSMENT / PLAN massive splenomegaly, in the setting of Myelodysplastic syndrome. Plan: I recommend proceeding with laparoscopic hand assisted splenectomy. In order to facilitate a laparoscopic approach I would recommend pre-operative splenic artery embolization. I will also need tosee her actual images to confirm that this MIS approach is safe. I did discuss that there is a chance of conversion to open. I also discussed getting her post-splenectomy vaccines now. I discussed the risks, benefits and alternatives of splenectomy for the underlying disease process inclusive of operative mortality, bleeding, thrombosis, transfusion, infection (OPSI), pancreatic/gastric fistulae and g eneral operative risks such as surgical site infection and incisional issues. Questions by the patient and accompanying individuals were answered. The patient wishes to consider her options Today, I personally spent 30 minutes, of which greater than 50% of the time was spent in patient education, counseling, and coordination of care as described above. documented in this encounter Plan of Treatment Not on filedocumented as of this encounter Visit Diagnoses Diagnosis Splenomegaly Acquired - Primary Myelofibrosis (HCC) documented in this encounter
--- OUTSIDE RECORDS SUMMARY | 2022-05-02 12:13 | XMS_ITS | Encounter Summary ---
:1970 Author Organization [facility] Address [address] [place] [address] Care Team Providers Name Role Phone Unavailable Primary Care Provider Unavailable Reason for Visit Outpatient (Routine) - Closed Specialty Diagnoses / Procedures Referred By Contact Refer red To Contact Diagnoses Myelofibrosis (HCC) Janusz Govea M.B.B.S. [facility] Procedures Biopsy Bone Marrow [address] [place] [phone] Referral ID Status Reason Start Date Expiration Date Visits Requ ested Visits Authorized [id number] Closed 05/22/2020 05/22/2021 1 1 Encounter Details Date Type Department Care Team Description 05/25/2020 Hospital Encounter Outpatient Reema Govea ma M.B.B.S. 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
--- OUTSIDE RECORDS SUMMARY | 2022-05-02 12:13 | XMS_ITS | Encounter Summary ---
:1970 Author Organization [facility] Address [address] [place] [address] Care Team Providers Name Role Phone No Ref-Primary, Physician Primary Care Provider [phone] Candida Epps MD Unavailable Shala Bell RN Unavailable Unavailable Boaz Garcia MD Unavailable Rodrick Turner MD Unavailable Encounter Details Date Type Department Care Team Description 09/12/2020 Orders Only [facility] Myeloproli [facility] MD Chriss disorder (H) (Primary Dx) [facility] [address] [facility] [place] [address] [address] [place], [place] 200 [address] [place], [place] [phone] (Work) [phone] Social History Tobacco Use Types Packs/Day Years Used Date Smoking Tobacco: Former Cigarettes Quit : 09/27/2012 Smokeless Tobacco: Never Comments: quit September 27, 2012 Alcohol Use Standard Drinks/Week Comments Yes 0 (1 standard drink = 0.6 oz pure alcoho l) 1 drink per week Sex Assigned at Date Recorded Not on file documented as of this encounter Plan of Treatment Not on filedocumented as of this encounter Visit Diagnoses Diagnosis 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
--- OUTSIDE RECORDS SUMMARY | 2022-05-02 12:13 | XMS_ITS | Encounter Summary ---
:1970 Author Organization [facility] Address [address] [place] [address] Care Team Providers Name Role Phone Unavailable Primary Care Provider Unavailable Reason for Referral Outpatient (Routine) - Closed Specialty Diagnoses / Procedures Referred By Contact Refer red To Contact Diagnoses Myelofibrosis (HCC) Janusz Govea M.B.B.S. [facility] Procedures Biopsy Bone Marrow [address] [place] [address] Referral ID Status Reason Start Date Expiration Date Visits Requ ested Visits Authorized [id number] Closed 05/22/2020 05/22/2021 1 1 L FABRICATOR HELPER Outpatient (Routine) - Closed Specialty Diagnoses / Procedures Referred By Contact Refer red To Contact Diagnoses Myelofibrosis (HCC) Janusz Govea M.B.B.S. [facility] Procedures ECG 12 Lead [address] [place] [phone] Referral ID Status Reason Start Date Expiration Date Visits Requ ested Visits Authorized [id number] Closed 05/22/2020 05/22/2021 1 1 L FABRICATOR HELPER Encounter Details Date Type Department Care Team Description 05/22/2020 Orders Only Division of Hematology Janusz Govea M yelofibrosis (HCC) in [facility] MSharitaB.S. (Primary Dx) [place] [address] [facility] [address] [place] [phone] Social History Tobacco Use Types Packs/Day Years Used Date Smoking Tobacco: Former Smokeless Tobacco: Never Sex Assigned at Date Recorded Female 07/24/2021 11:03 AM METAL FABRICATOR HELPER documented as of this encounter Plan of Treatment Not on filedocumented as of this encounter Results WA DX BONE MARROW BX & ASPIR (06/01/2020 2:30 PM METAL FABRICATOR HELPER) Specimen (Source) Anatomical Location Collection Method / Collectio n Time Received Time / Laterality Volume Bone Marrow Narrative MMODAL - 06/01/2020 2:30 PM METAL FABRICATOR HELPER Kenneth Bridges R.N. ? 06/01/2020 ??2:51 PM Biopsy Bone Marrow Date/Time: 06/01/2020 2:50 PM Performed by: Kenneth Bridges R.N. Authorized by: Janusz Govea M.B.B.SZahraa Care team members present 1. Ronny Natarajan [...] [id number] Bone Marrow Examination pamphlet provided. Janusz Dillon.B.B.S. PROCEDURE/MINOR SURGICAL ORD ERABLES Performing Organization Address City/State/ZIP Code Phon e Number MMODAL MMODAL NA ECG 12 Lead (05/25/2020 11:29 AM METAL FABRICATOR HELPER) P athologist Signature Ventricular Rate 80 BPM MUSE ECG/Min [place] Interval 134 ms MUSE QRSD Interval 78 ms MUSE QT Interval 390 ms MUSE QTC Interval 449 ms MUSE P [place] 8 degrees MUSE R [place] 22 degrees MUSE T Wave [place] 46 degrees MUSE Specimen Anatomical Collection Method Collection Time Receive d Time (Source) Location / / Volume Laterality 05/25/2020 11:29 05/25/2020 AM METAL FABRICATOR HELPER 11:42 AM METAL FABRICATOR HELPER Impressions MUSE - 05/25/2020 11:42 AM METAL FABRICATOR HELPER Sinus rhythm Premature atrial complexes Minimal voltage criteria for LVH, may be normal variant Nonspecific T wave abnormality When compared with ECG of 15-MAY-2016 11 :05, Premature atrial complexes are now prese nt T waves have changed Reviewed by REG Colon Narrative This result has an attachment that is no t available. Procedure Note Jose Luis Haq M.D. - 05/25/2020Formatt ing of this note might be different from the original. IMPRESSION: Sinus rhythm Premature atrial complexes Minimal voltage criteria for LVH, may be normal variant Nonspecific T wave abnormality When compared with ECG of 15-MAY-2016 11 :05, Premature atrial complexes are now prese nt T waves have changed Reviewed by REG Colon Janusz Govea M.B.B.S. 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 1:49 PM METAL FABRICATOR HELPER Comment: CALR mutation is identified in approximately [...] Exon 9 of CALR was amplified from [facility] [employer] DNA by polymerase chain reaction (PCR). The [...] performa nce characteristics determined by [facility] in a manner consistent with CLIA requirements. This test has not been cleared or approved by the [place] and Drug Administration. Specimen Anatomical Collection Method Collection Time Receive d Time (Source) Location / / Volume Laterality Varies (Blood, 05/25/2020 11:17 0 Venous) AM METAL FABRICATOR HELPER 12:45 PM METAL FABRICATOR HELPER Narrative This result has an attachment that is no t available. Janusz Ardon LAB GENETIC TESTING Performing Organization Address City/State/ZIP Code Phon e Number [facility] - [address] [address] [facility] 200 [facility] Lipase (05/25/2020 11:16 AM METAL FABRICATOR HELPER) P athologist Signature Lipase, S 29 13 - 60 U/L 05/25/2020 DTL 12:05 PM METAL FABRICATOR HELPER Specimen Anatomical Collection Method Collection Time Receive d Time (Source) Location / / Volume Laterality Blood (Blood, 05/25/2020 11:16 05/25/2020 Venous) AM METAL FABRICATOR HELPER 11:54 AM METAL FABRICATOR HELPER Janusz Higgins.B.S. LAB BLOOD ADD-ON Performing Organization Address City/State/ZIP Code Phon e Number [facility] - [address] Amylase, Total (05/25/2020 11:16 AM METAL FABRICATOR HELPER) P athologist Signature Amylase, Total, 28 26 - 102 05/25/2020 DT S U/L 12:05 PM METAL FABRICATOR HELPER Specimen Anatomical Collection Method Collection Time Receive d Time (Source) Location / / Volume Laterality Blood (Blood, 05/25/2020 11:16 05/25/2020 Venous) AM METAL FABRICATOR HELPER 11:54 AM METAL FABRICATOR HELPER Janusz HayesB.B.S. LAB BLOOD ADD-ON Performing Organization Address City/State/ZIP Code Phon e Number [facility] - [address] (ABNORMAL) Prothrombin Time (PT) (05/25/2020 11:15 AM METAL FABRICATOR HELPER) Patholo gist Method Time Signature Prothrombin 13.7 (H) 9.4 - 12.5 05/25/2020 DTL Time, P sec 12:32 PM METAL FABRICATOR HELPER INR 1.2 0.9 - 1.1 05/25/2020 DTL 12:32 PM METAL FABRICATOR HELPER Comment: ----ADDITIONAL INFORMATION---- Standard intensity warfarin therapeutic range: 2.0 to 3.0 ?? High intensity warfarin therapeutic rang e: 2.5 to 3.5 Specimen Anatomical Collection Method Collection Time Receive d Time (Source) Location / / Volume Laterality Blood (Blood, 05/25/2020 11:15 05/25/2020 Venous) AM METAL FABRICATOR HELPER 11:41 AM METAL FABRICATOR HELPER Janusz Govea M.B.B.S. LAB BLOOD ADD-ON Performing Organization Address City/State/[facility] Code Phon e Number [facility] - [address] [place] [address] [place] [address] Glucose, Random (05/25/2020 11:15 AM METAL FABRICATOR HELPER) athologist Signature Glucose, S 136 70 - 140 05/25/2020 DTL mg/dL 12:03 PM METAL FABRICATOR HELPER Specimen Anatomical Collection Method Collection Time Receive d Time (Source) Location / / Volume Laterality Blood (Blood, 05/25/2020 11:15 05/25/2020 Venous) AM METAL FABRICATOR HELPER 11:48 AM METAL FABRICATOR HELPER Janusz Govea M.B.B.S. LAB BLOOD TROPONIN Performing Organization Address City/[facility]/ZIP Code Phon e Number [facility] - [address] (ABNORMAL) Uric Acid (05/25/2020 11:15 AM METAL FABRICATOR HELPER) athologist Signature Uric Acid, S 9.2 (H) 2.7 - 6.1 05/25/2020 DTL mg/dL 12:03 PM METAL FABRICATOR HELPER Specimen Anatomical Collection Method Collection Time Receive d Time (Source) Location / / Volume Laterality Blood (Blood, 05/25/2020 11:15 05/25/2020 Venous) AM METAL FABRICATOR HELPER 11:48 AM METAL FABRICATOR HELPER Janusz Govea M.B.B.S. LAB BLOOD ADD-ON Performing Organization Address City/State/ZIP [facility] Phon e Number [facility] - [address] [place], [place] [address] [place] [address] Creatinine with Estimated GFR (05/25/2020 11:15 AM METAL FABRICATOR HELPER) athologist Signature Creatinine 1.04 0.59 - 05/25/2020 DTL 1.04 mg/dL 12:03 PM METAL FABRICATOR HELPER eGFR-Non 62 >=60 05/25/2020 DTL Black/ mL/min/BSA 12:03 PM METAL FABRICATOR HELPER [place] Comment: ----ADDITIONAL INFORMATION---- Estimated GFR calculated using the 2009 CKD_EPI creatinine equation. eGFR-Black/ 71 >=60 mL/min/BSA 2019 12:03 PM METAL FABRICATOR HELPER DTL Comment: ----ADDITIONAL INFORMATION---- Estimated GFR calculated using the 2009 CKD_EPI creatinine equation. Specimen Anatomical Collection Method Collection Time Receive d Time (Source) Location / / Volume Laterality Blood (Blood, 05/25/2020 11:15 05/25/2020 Venous) AM METAL FABRICATOR HELPER 11:48 AM METAL FABRICATOR HELPER Janusz Higgins.B.S. LAB BLOOD ADD-ON Performing Organization Address City/[facility] Phon e Number [facility] - [address] [place] [address] BUN (Blood Urea Nitrogen) (05/25/2020 11:15 AM METAL FABRICATOR HELPER) P athologist Signature BUN (Blood Urea 19 6 - 21 05/25/2020 DTL Nitrogen), S mg/dL 12:03 PM METAL FABRICATOR HELPER Specimen Anatomical Collection Method Collection Time Receive d Time (Source) Location / / Volume Laterality Blood (Blood, 05/25/2020 11:15 05/25/2020 Venous) AM METAL FABRICATOR HELPER 11:48 AM METAL FABRICATOR HELPER Janusz Higgins.B.S. LAB BLOOD ADD-ON Performing Organization Address City/[facility] Phon e Number [facility] - [address] [place], [place] [address] [facility] [place], [place] [phone] [place] [address] Alkaline Phosphatase (05/25/2020 11:15 AM METAL FABRICATOR HELPER) P athologist Signature Alkaline 38 35 - 104 05/25/2020 DTL Phosphatase, S U/L 12:03 PM METAL FABRICATOR HELPER Specimen Anatomical Collection Method Collection Time Receive d Time (Source) Location / / Volume Laterality Blood (Blood, 05/25/2020 11:15 05/25/2020 Venous) AM METAL FABRICATOR HELPER 11:48 AM METAL FABRICATOR HELPER Janusz Dillon.B.B.S. LAB BLOOD ADD-ON Performing Organization Address City/State/[facility] Phon e Number [facility] - [address] [place] [address] [place] [phone] [place] [address] AST (Aspartate Aminotransferase) (05/25/2020 11:15 AM METAL FABRICATOR HELPER) [facility] gist Method Time Signature Aspartate 29 8 - 43 05/25/2020 DTL Aminotransferase U/L 12:03 PM METAL FABRICATOR HELPER (AST), S Specimen Anatomical Collection Method Collection Time Receive d Time (Source) Location / / Volume Laterality Blood (Blood, 05/25/2020 11:15 05/25/2020 Venous) AM METAL FABRICATOR HELPER 11:48 AM METAL FABRICATOR HELPER Naseema Gangat M.B.B.S. LAB BLOOD ADD-ON Performing Organization Address City/[facility] Phon e Number [facility] - 200 [place] [address] [place] [phone] [place] [address] ALT (Alanine Aminotransferase) (05/25/2020 11:15 AM METAL FABRICATOR HELPER) [facility] Method Time Signature Alanine 15 7 - 45 05/25/2020 DTL Aminotransferase U/L 12:03 PM METAL FABRICATOR HELPER (ALT), S Specimen Anatomical Collection Method Collection Time Receive d Time (Source) Location / / Volume Laterality Blood (Blood, 05/25/2020 11:15 05/25/2020 Venous) AM METAL FABRICATOR HELPER 11:48 AM METAL FABRICATOR HELPER Naseewilman Mcdonaldgat M.B.B.S. LAB BLOOD ADD-ON Performing Organization Address City/[facility] Phon e Number [facility] - 200 [place], [place] [address] [place] [address] DTL [place], [place] [phone] [place] [address] Bilirubin, Total (05/25/2020 11:15 AM METAL FABRICATOR HELPER) P athologist Signature Bilirubin, 0.9 <=1.2 mg/dL 05/25/2020 DTL Total, S 12:03 PM METAL FABRICATOR HELPER Specimen Anatomical Collection Method Collection Time Receive d Time (Source) Location / / Volume Laterality Blood (Blood, 05/25/2020 11:15 05/25/2020 Venous) AM METAL FABRICATOR HELPER 11:48 AM METAL FABRICATOR HELPER Naseema Gangat M.B.B.S. LAB BLOOD ADD-ON Performing Organization Address City/[facility] Phon e Number [facility] - [address] Albumin (05/25/2020 11:15 AM METAL FABRICATOR HELPER) P athologist Signature Albumin, S 4.4 3.5 - 5.0 05/25/2020 DTL g/dL 12:03 PM METAL FABRICATOR HELPER Specimen Anatomical Collection Method Collection Time Receive d Time (Source) Location / / Volume Laterality Blood (Blood, 05/25/2020 11:15 05/25/2020 Venous) AM METAL FABRICATOR HELPER 11:48 AM METAL FABRICATOR HELPER Janusz AlexandraSZahraa LAB BLOOD ADD-ON Performing Organization Address City/[facility] Phon e Number [facility] - [phone] [place] [address] (ABNORMAL) Protein, Total (05/25/2020 11:15 AM METAL FABRICATOR HELPER) P athologist Signature Protein, 6.2 (L) 6.3 - 7.9 05/25/2020 DTL Total, S g/dL 12:03 PM METAL FABRICATOR HELPER Specimen Anatomical Collection Method Collection Time Receive d Time (Source) Location / / Volume Laterality Blood (Blood, 05/25/2020 11:15 05/25/2020 Venous) AM METAL FABRICATOR HELPER 11:48 AM METAL FABRICATOR HELPER Janusz AlexandraSZahraa LAB BLOOD ADD-ON Performing Organization Address City/[facility] Code Phon e Number [facility] - [address] Calcium, Total (05/25/2020 11:15 AM METAL FABRICATOR HELPER) P athologist Signature Calcium, Total, 8.8 8.6 - 10.0 05/25/2020 DTL S mg/dL 12:03 PM METAL FABRICATOR HELPER Specimen Anatomical Collection Method Collection Time Receive d Time (Source) Location / / Volume Laterality Blood (Blood, 05/25/2020 11:15 05/25/2020 Venous) AM METAL FABRICATOR HELPER 11:48 AM METAL FABRICATOR HELPER Janusz Govea M.B.B.S. LAB BLOOD ADD-ON Performing Organization Address City/State/ZIP Code Phon e Number [facility] - [address] [place], [place] [address] [place] [address] [facility] [address] Chloride (05/25/2020 11:15 AM METAL FABRICATOR HELPER) P athologist Signature Chloride, S 105 98 - 107 05/25/2020 DTL mmol/L 12:03 PM METAL FABRICATOR HELPER Specimen Anatomical Collection Method Collection Time Receive d Time (Source) Location / / Volume Laterality Blood (Blood, 05/25/2020 11:15 05/25/2020 Venous) AM METAL FABRICATOR HELPER 11:48 AM METAL FABRICATOR HELPER Janusz Govea M.B.B.S. LAB BLOOD ADD-ON Performing Organization Address City/[facility] Phon e Number [facility] - [address] [place], [place] [address] [place] [address] [facility] [address] (ABNORMAL) Magnesium (05/25/2020 11:15 AM METAL FABRICATOR HELPER) P athologist Signature Magnesium, S 2.5 (H) 1.7 - 2.3 05/25/2020 DTL mg/dL 12:03 PM METAL FABRICATOR HELPER Specimen Anatomical Collection Method Collection Time Receive d Time (Source) Location / / Volume Laterality Blood (Blood, 05/25/2020 11:15 05/25/2020 Venous) AM METAL FABRICATOR HELPER 11:48 AM METAL FABRICATOR HELPER Janusz Govea M.B.B.S. LAB BLOOD ADD-ON Performing Organization Address City/State/ZIP Code Phon e Number [facility] - [address] [place], [place] [address] [place] [address] [facility] [address] Potassium (05/25/2020 11:15 AM METAL FABRICATOR HELPER) P athologist Signature Potassium, S 4.9 3.6 - 5.2 05/25/2020 DTL mmol/L 12:03 PM METAL FABRICATOR HELPER Specimen Anatomical Collection Method Collection Time Receive d Time (Source) Location / / Volume Laterality Blood (Blood, 05/25/2020 11:15 05/25/2020 Venous) AM METAL FABRICATOR HELPER 11:48 AM METAL FABRICATOR HELPER Janusz ArringtonBZahraaS. LAB BLOOD ADD-ON Performing Organization Address City/State/[facility] Code Phon e Number [facility] - 200 [place], [place] [address] [place] [address] [place] [address] [address] Sodium (05/25/2020 11:15 AM METAL FABRICATOR HELPER) P athologist Signature Sodium, S 144 135 - 145 05/25/2020 DTL mmol/L 12:03 PM METAL FABRICATOR HELPER Specimen Anatomical Collection Method Collection Time Receive d Time (Source) Location / / Volume Laterality Blood (Blood, 05/25/2020 11:15 05/25/2020 Venous) AM METAL FABRICATOR HELPER 11:48 AM METAL FABRICATOR HELPER Janusz ArringtonBZahraaS. LAB BLOOD ADD-ON Performing Organization Address City/[facility] Phon e Number [facility] - [phone] [place] [address] (ABNORMAL) CBC with Differential, Blood (05/25/2020 11:14 AM METAL FABRICATOR HELPER) Patholo gist Method Time Signature Hemoglobin 6.6 (L) 11.6 - 05/25/2020 DTL 15.0 g/dL 11:53 AM METAL FABRICATOR HELPER Hematocrit 23.3 (L) 35.5 - 05/25/2020 DTL 44.9 % 11:53 AM METAL FABRICATOR HELPER Erythrocytes 2.51 (L) 3.92 - 05/25/2020 DTL 5.13 11:53 AM METAL FABRICATOR HELPER x10(12)/L MCV 92.8 78.2 - 05/25/2020 DTL 97.9 fL 11:53 AM METAL FABRICATOR HELPER RBC Distrib Width 28.9 (H) 12.2 - 05/25/2020 DTL 16.1 % 12:56 PM METAL FABRICATOR HELPER Platelet Count 92 (L) 157 - 371 05/25/2020 DTL x10(9)/L 12:56 PM METAL FABRICATOR HELPER Comment: Large platelets - count approxi mate. Leukocytes 3.3 (L) 3.4 - 9.6 x10(9)/L 05/25/2020 12:56 PM METAL FABRICATOR HELPER DTL Comment: Results confirmed by smear. Neutrophils SeeComment 1.56 - 6.45 x10(9)/L 05/25/2020 12:56 PM METAL FABRICATOR HELPER DTL Comment: Auto-diff results not valid. Se e manual differential. Specimen Anatomical Collection Method Collection Time Receive d Time (Source) Location / / Volume Laterality Blood (Blood, 05/25/2020 11:14 05/25/2020 Venous) AM METAL FABRICATOR HELPER 11:41 AM METAL FABRICATOR HELPER Janusz Ardon LAB BLOOD ADD-ON Performing Organization Address City/State/ZIP Code Phon e Number [facility] - [address] [place], [place] [address] [facility] [address] [facility] [address] documented in this encounter Visit Diagnoses Diagnosis Myelofibrosis (HCC) - Primary Myelofibrosis (HCC) documented in this encounter
--- OUTSIDE RECORDS SUMMARY | 2022-05-02 12:13 | XMS_ITS | Encounter Summary ---
:1970 Author Organization [facility] Address [address] [place] [address] Care Team Providers Name Role Phone Unavailable Primary Care Provider Unavailable Encounter Details Date Type Department Care Team Description 02/19/2019 Hospital Encounter Department of Gangat, Myelofib rosis ([facility]) Laboratory Medicine [facility], and Pathology, [facility], in [address] [place] [id number] [place], [place] [phone] (Work) [phone] Social History Tobacco Use Types Packs/Day Years Used Date Smoking Tobacco: Former Smokeless Tobacco: Never Sex Assigned at Date Recorded 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 4 tabs in the pm oxyCODONE (OXY-IR) 5 mg Take 2 capsules by 0 02/1203/18/2022 immediate release capsule mouth every 4 (four) hours as needed. documented as of this encounter Plan of Treatment Not on filedocumented as of this encounter Procedures Procedure Name Priority Date/Time Associated Diagnosis Comme nts SPSMA RESULT Routine 02/19/2019 10:37 Myelofibrosis (HCC) Resu lts for this AM CDT procedure are i n the results section. ERYTHROPOIETIN (EPO), Routine 02/19/2019 10:37 Myelofibrosis ( HCC) Results for this S AM CDT procedure are i n the results section. CBC WITH DIFFERENTIAL, Routine 02/19/2019 10:37 Myelofibrosis (HCC) Results for this B AM CDT procedure are i n the results section. LACTATE DEHYDROGENASE Routine 02/19/2019 10:37 Myelofibrosis ( HCC) Results for this (LD), S AM CDT procedure are i n the results section. COMPREHENSIVE Routine 02/19/2019 10:37 Myelofibrosis (HCC) Res ults for this METABOLIC PANEL, S/P AM CDT procedu re are in the results section. documented in this encounter Results (ABNORMAL) Erythropoietin (EPO) (02/19/2019 10:37 AM CDT) [facility] Method Time Signature Erythropoietin 116 (H) 2.6 - 02/19/2019 (EPO), S 18.5 2:53 PM CDT mIU/mL Specimen Anatomical Collection Method Collection Time Receive d Time (Source) Location / / Volume Laterality Blood (Blood, 02/19/2019 10:37 02/19/2019 1:21 Venous) AM CDT PM CDT Janusz Ardon LAB BLOOD ADD-ON Performing Organization Address City/State/ZIP Code Phon e Number [facility] [address] [place], [place] [address] [facility] (ABNORMAL) LD (Lactate Dehydrogenase) (02/19/2019 10:37 AM CDT) [facility] Method Time Signature Lactate 827 (H) 122 - 222 02/19/2019 Dehydrogenase U/L 11:43 AM CDT (LD), S Specimen Anatomical Collection Method Collection Time Receive d Time (Source) Location / / Volume Laterality Blood (Blood, 02/19/2019 10:37 02/19/2019 Venous) AM CDT 11:00 AM CDT Janusz Ardon LAB BLOOD NON ADD-ON Performing Organization Address City/State/ZIP Code Phon e Number [facility] - [address] [place], [place] [address] [facility] (ABNORMAL) Comprehensive Metabolic Panel (02/19/2019 10:37 AM CDT) P athologist Signature Potassium, S 4.7 3.6 - 5.2 02/19/2019 mmol/L 11:43 AM CDT Sodium, S 143 135 - 145 02/19/2019 mmol/L 11:43 AM CDT Chloride, S 107 98 - 107 02/19/2019 mmol/L 11:43 AM CDT Bicarbonate, S 27 22 - 29 02/19/2019 mmol/L 11:43 AM CDT Anion Gap 9 7 - 15 02/19/2019 11:43 AM CDT BUN (Blood Urea 18 6 - 21 02/19/2019 Nitrogen), S mg/dL 11:43 AM CDT Creatinine 0.90 0.59 - 02/19/2019 1.04 mg/dL 11:43 AM CDT eGFR-Non 75 >=60 02/19/2019 Black/ mL/min/BSA 11:43 AM CDT Chadian Comment: ----ADDITIONAL INFORMATION---- Estimated GFR calculated using the 2009 CKD_EPI creatinine equation. eGFR-Black/ 86 >=60 mL/min/BSA 2018 11:43 AM CDT Comment: ----ADDITIONAL INFORMATION---- Estimated GFR calculated using the 2009 CKD_EPI creatinine equation. Calcium, Total, S 9.2 8.6 - 10.0 mg/dL 02/19/2019 11:4 3 AM CDT Glucose, S 93 70 - 140 mg/dL 02/19/2019 11:43 AM CDT Protein, Total, S 6.3 6.3 - 7.9 g/dL 02/19/2019 11:43 AM CDT Albumin, S 4.4 3.5 - 5.0 g/dL 02/19/2019 11:43 AM CDT Aspartate Aminotransferase 21 8 - 43 U/L 02/19/2019 1 1:43 AM CDT (AST), S Alkaline Phosphatase, S 37 35 - 104 U/L 02/19/2019 11 :43 AM CDT Alanine Aminotransferase 8 7 - 45 U/L 02/19/2019 11: 53 AM CDT (ALT), S Bilirubin, Total, S 1.3 (H) <=1.2 mg/dL 02/19/2019 11:43 A M CDT Specimen Anatomical Collection Method Collection Time Receive d Time (Source) Location / / Volume Laterality Blood (Blood, 02/19/2019 10:37 02/19/2019 Venous) AM CDT 11:00 AM CDT Janusz Ardon LAB BLOOD ADD-ON Performing Organization Address City/State/ZIP Code Phon e Number [facility] - [address] [place], [place] [address] [facility] (ABNORMAL) Morphology Evaluation (Special Smear) (02/19/2019 10:37 AM CDT) [facility] gist Method Time Signature Neutrophilic Segs 67 50 - 75 % 02/19/2019 and Bands 12:22 PM CDT Lymphocytes 14 (L) 18 - 42 % 02/19/2019 12:22 PM CDT Monocytes 7 2 - 11 % 02/19/2019 12:22 PM CDT Basophils 1 0 - 2 % 02/19/2019 12:22 PM CDT Metamyelocytes 1 (H) <1 % 02/19/2019 12:22 PM CDT Myelocytes 9 (H) <0.5 % 02/19/2019 12:22 PM CDT Blasts 1 (H) <1 % 02/19/2019 12:22 PM CDT Nucleated RBC 3 /100 WBC 02/19/2019 12:22 PM CDT Manual Absolute 2.81 1.56 - 02/19/2019 Neutrophil Count 6.45 12:22 PM CDT x10(9)/L Comment: ----ADDITIONAL INFORMATION---- The manual absolute neutrophil count is derived from a manual differential count and therefore is not exactly comparable to the automated absolute halie trophil count. Interpretation SeeComment 02/19/2019 12:22 PM CDT Comment: Leukoerythroblastic features ar e present. Moderate dacrocytes are present. Reviewed by: Liz 02/19/2019 12:22 PM CDT Specimen Anatomical Collection Method Collection Time Receive d Time (Source) Location / / Volume Laterality Blood (Blood, 02/19/2019 10:37 02/19/2019 Venous) AM CDT 11:00 AM CDT Janusz rAdon LAB BLOOD ADD-ON Performing Organization Address City/State/ZIP Code Phon e Number [facility] - [address] [place], [place] [address] [facility] (ABNORMAL) CBC with Differential, Blood (02/19/2019 10:37 AM CDT) [facility] Method Time Signature Hemoglobin 8.0 (L) 11.6 - 02/19/2019 15.0 g/dL 11:09 AM CDT Hematocrit 26.8 (L) 35.5 - 02/19/2019 44.9 % 11:09 AM CDT Erythrocytes 3.03 (L) 3.92 - 02/19/2019 5.13 11:09 AM CDT x10(12)/L MCV 88.4 78.2 - 02/19/2019 97.9 fL 11:09 AM CDT RBC Distrib Width 24.0 (H) 12.2 - 02/19/2019 16.1 % 12:13 PM CDT Platelet Count 137 (L) 157 - 371 02/19/2019 x10(9)/L 12:13 PM CDT Leukocytes 4.2 3.4 - 9.6 02/19/2019 x10(9)/L 12:13 PM CDT Neutrophils 3.48 1.56 - 02/19/2019 6.45 12:13 PM CDT x10(9)/L Lymphocytes 0.39 (L) 0.95 - 02/19/2019 3.07 12:13 PM CDT x10(9)/L Monocytes 0.27 0.26 - 02/19/2019 0.81 12:13 PM CDT x10(9)/L Eosinophils 0.03 0.03 - 02/19/2019 0.48 12:13 PM CDT x10(9)/L Basophils 0.04 0.01 - 02/19/2019 0.08 12:13 PM CDT x10(9)/L Specimen Anatomical Collection Method Collection Time Receive d Time (Source) Location / / Volume Laterality Blood (Blood, 02/19/2019 10:37 02/19/2019 Venous) AM CDT 11:00 AM CDT Janusz Ardon LAB BLOOD ADD-ON Performing Organization Address City/State/ZIP Code Phon e Number [facility] - [address] [place], [place] [address] [facility] documented in this encounter Visit Diagnoses Diagnosis Myelofibrosis (HCC) documented in this encounter
--- OUTSIDE RECORDS SUMMARY | 2022-05-02 12:13 | XMS_ITS | Encounter Summary ---
:1970 Author Organization [facility] Address [address] [place] [address] Care Team Providers Name Role Phone Unavailable Primary Care Provider Unavailable Reason for Referral Outpatient (Routine) - Closed Specialty Diagnoses / Procedures Referred By Contact Refer red To Contact General Surgery Diagnoses Myelofibrosis (HCC) [facility] [address] [place] [id number] Referral ID Status Reason Start Date Expiration Date Visits Requ ested Visits Authorized [id number] Closed 02/19/2019 02/19/2020 1 1 Reason for Visit Appointment Request (Routine) - Closed Specialty Diagnoses / Procedures Referred By Contact Refer red To Contact Hematology Diagnoses [facility] Procedures Referral ID Status Reason Start Date Expiration Date Visits Requ ested Visits Authorized [id number] Closed 02/05/2019 02/22/2019 2 2 Encounter Details Date Type Department Care Team Description 02/19/2019 Comprehensive Visit Division of Xuan Myelrome rosliliana (HCC) H[facility] [phone] Social History Tobacco Use Types Packs/Day Years Used Date Smoking Tobacco: Former Smokeless Tobacco: Never Sex Assigned at Date Recorded 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 - 02/19/2019 9:30 AM CDT SUBJECTIVE CHIEF COMPLAINT/REASON FOR VISIT Primary myelofibrosis. HISTORY OF PRESENT ILLNESS Ms. Dobbs is a pleasant 48-year-old lady accompanied by her and mother. She has a diagnosis of primary myelofibrosis since August 2015 when she presented with severe painin the left upper quadrant, was found to have marked splenomegaly, [place] and was diagnosed with type 2 CALR mutated primary myelofibrosis. She was started on Jakafi because of significant splenic pain. However, it made her transfusion dependent, and she did not feel well on the medication. Hence, it was stopped after 3 months of therapy. She was evaluated by my colleague, Dr. Orta, in February of 2016 and subsequently in April of 2016 when she was enrolled in the alisertib clinical trial for DIPSS intermediate-2 CALR mutated primarymyelofibrosis. She completed 4 cycles of therapy and decided to come off therapy because of fatigue and losing her hair. After coming off study in 2016 she was started on Hydrea 500 mg twice daily, butby the summer of 2016 she had become RBC transfusion dependent. Most recently she is receiving 2 units of RBCs every 2-3 weeks. There has also been worsening splenomegaly with extreme spleen pain with mention of splenic infarcts. She reports to me that her spleen is 35 cm in measurement. She is requiring narcotics for pain control. She has drenching night sweats and itching. She has lost significant amounts of weight, she says 75 pounds over the last 2 years. Shedoes have nausea, vomiting, and numbness and tingling in the hands and feet. She has been evaluated by Dr. Cr at the [facility]. She has also seen a surgeon for consideration of splenectomy. She had a repeat bone marrow aspirate and biopsy performed locally January 2019 which reveals myelofibrosis type 2 CALR SF3B1 mutated. She is here to seek a 2nd opinion regarding her care. OBJECTIVE PHYSICAL EXAMINATION Vital Signs: Height 171 cm. Weight 94.7 kg. Temperature 36.4. Pulse 76, regular. Blood pressure 146/76. General: In no acute distress. Has lost weight. HEENT: No oral ulcers. Heart: She does have a systolic murmur. Abdomen: Extremely tender to palpation. Her spleen does cross the midline and is significantly enlarged compared to prior measurements, about 25 cm below the left costal margin. I am not able to provide an accurate measurement because of extreme pain. ASSESSMENT / PLAN #1 Type 2 CALR,SF3B1 mutated primary myelofibrosis #2 Transfusion-dependent anemia #3 Worsening splenomegaly I had a long discussion with Mrs. Dobbs. At this time I would like to obtain blood work including an EPO level. She could potentially benefit from Aranesp to alleviate her transfusion needs. In terms of her symptomatic splenomegaly, consideration needs to be given to splenectomy. I am happy to set her up for General Surgery consultation. I reviewed with her the [facility] clinical trial with fedratinib which is ongoing at other sites for patients who have been unresponsive to Jakafi which she tried for about 3 months in 2016. The closest site to her would be [place]. I have given her the contact information to reach out to the company and subsequently the site utilities service investigator to discuss her candidacy. I also reviewed with her the potential for an upcoming study on momelotinib versus danazol which would probably be open next year. I would defer a bone marrow transplant consultation at this time. We will obtain an echocardiogram for the heart murmur. Meanwhile, we will decide on the next best steps based on how the patient wants to proceed. Addendum: reviewed test results, surgery consultation. She would benefit from Aranesp. Prefers to defer splenectomy for now. documented in this encounter Plan of Treatment Scheduled Referrals Name Type Priority Associated Diagnoses Order S [facility] Surgery - Outpatient Referral Routine Myelofibrosis (H CC) Expected: Spleen consult 02/19/2019 (clinic) (Approximate), Expires: 02/19/2022 documented as of this encounter Results (ABNORMAL) Erythropoietin (EPO) (02/19/2019 10:37 AM CDT) [facility] Method Time Signature Erythropoietin 116 (H) 2.6 - 02/19/2019 (EPO), S 18.5 2:53 PM CDT mIU/mL Specimen Anatomical Collection Method Collection Time Receive d Time (Source) Location / / Volume Laterality Blood (Blood, 02/19/2019 10:37 02/19/2019 1:21 Venous) AM CDT PM CDT Janusz Ardon LAB BLOOD ADD-ON Performing Organization Address City/[facility] Phon e Number [facility] [address] CENTER (ABNORMAL) LD (Lactate Dehydrogenase) (02/19/2019 10:37 AM CDT) [facility] gist Method Time Signature Lactate 827 (H) 122 - 222 02/19/2019 Dehydrogenase U/L 11:43 AM CDT (LD), S Specimen Anatomical Collection Method Collection Time Receive d Time (Source) Location / / Volume Laterality Blood (Blood, 02/19/2019 10:37 02/19/2019 Venous) AM CDT 11:00 AM CDT Janusz Ardon LAB BLOOD NON ADD-ON Performing Organization Address City/State/ZIP Code Phon e Number [facility] - [address] [place] [address] [facility] (ABNORMAL) Comprehensive Metabolic Panel (02/19/2019 10:37 AM [...] >=60 02/19/2019 Black/ mL/min/BSA 11:43 AM CDT Serbian Comment: ----ADDITIONAL INFORMATION---- Estimated GFR calculated using [...] City/State/ZIP Code Phon e Number [facility] - [address] [place] [address] [facility] (ABNORMAL) Morphology Evaluation (Special Smear) (02/19/2019 10:37 AM CDT) [facility] [employer] Method Time Signature Neutrophilic Segs 67 50 [...] City/State/ZIP Code Phon e Number [facility] - [address] [place] [address] [facility] (ABNORMAL) CBC with Differential, Blood (02/19/2019 10:37 AM CDT) [facility] [employer] Method Time Signature Hemoglobin 8.0 (L) 11.6 [...] 02/19/2019 Venous) AM CDT 11:00 AM CDT aJnusz Ardon LAB BLOOD ADD-ON Performing Organization Address City/State/ZIP Code Phon e Number [facility] - [address] [place], [place] [address] [facility] documented in this encounter Visit Diagnoses Diagnosis Myelofibrosis (HCC) - Primary documented in this encounter
--- OUTSIDE RECORDS SUMMARY | 2022-05-02 12:14 | XMS_ITS | Encounter Summary ---
:1970 Author Organization [facility] Address [address] [place] [address] Care Team Providers Name Role Phone No Ref-Primary, Physician Primary Care Provider [phone] Candida Epps MD Unavailable Shala Bell RN Unavailable Unavailable Encounter Details Date Type Department Care Team Description 03/22/2020 Travel Social History Tobacco Use Types Packs/Day Years Used Date Smoking Tobacco: Former Cigarettes Quit : 09/27/2012 Smokeless Tobacco: Never Comments: quit September 27, 2012 Alcohol Use Standard Drinks/Week Comments Yes 0 (1 standard drink = 0.6 oz pure alcoho l) 1 drink per week Sex Assigned at Date Recorded Not on file COVID-19 Exposure Response Date Recorded In the last month, have you been in contact with No / Unsure 03/22/2020 9:56 AM CDT someone who was confirmed or suspected to have Coronavirus / COVID-19? documented as of 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 Care Teams Lidar Scientist Relationship Specialty Start Date End Date No Ref-Primary, PCP - General 09/30/17 Physician Candida Epps MD MD Internal Medicine 01/15/[address] [facility] [address] [place] [address] Shala Bell, HELENE Specialty Care Hematology & Oncology 01/15/19 07/23/21 Coordinator documented as of this encounter
--- OUTSIDE RECORDS SUMMARY | 2022-05-02 12:14 | XMS_ITS | Encounter Summary ---
:1970 Author Organization [facility] Address [address] [place] [address] Care Team Providers Name Role Phone No Ref-Primary, Physician Primary Care Provider [phone] Candida Epps MD Unavailable Shala Bell RN Unavailable Unavailable Encounter Details Date Type Department Care Team Description 02/18/2020 Travel Social History Tobacco Use Types Packs/Day [...] been in contact with No / Unsure 02/18/2020 8:59 AM CDT someone who was confirmed or suspected to have Coronavirus / COVID-19? documented as of 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 Care Teams Bakery Machine Mechanic Supervisor Relationship Specialty Start Date End Date No Ref-Primary, PCP - General 09/30/17 Physician Candida Epps MD MD Internal Medicine 01/15/[address] [facility] [address] [place] [address] Shala Bell, HELENE Specialty Care Hematology & Oncology 01/15/19 07/23/21 Coordinator documented as of this encounter
--- OUTSIDE RECORDS SUMMARY | 2022-05-02 12:14 | XMS_ITS | Encounter Summary ---
:1970 Author Organization [facility] Address [address] [place] [address] Care Team Providers Name Role Phone No Ref-Primary, Physician Primary Care Provider [phone] Candida Epps MD Unavailable Shala Bell RN Unavailable Unavailable Encounter Details Date Type Department Care Team Description 01/20/2020 Travel Social History Tobacco Use Types Packs/Day [...] been in contact with No / Unsure 01/20/2020 11:31 AM CDT someone who was confirmed or suspected to have Coronavirus / COVID-19? documented as of 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 Care Teams Territory Manager Relationship Specialty Start Date End Date No Ref-Primary, PCP - General 09/30/17 Physician Candida Epps MD MD Internal Medicine 01/15/19 [address] [facility] [address] [place] [address] Shala Bell, HELENE Specialty Care Hematology & Oncology 01/15/19 07/23/21 Coordinator documented as of this encounter
--- OUTSIDE RECORDS SUMMARY | 2022-05-02 12:14 | XMS_ITS | Encounter Summary ---
:1970 Author Organization [place] Address [address] [place] [address] Care Team Providers Name Role Phone No Ref-Primary, Physician Primary Care Provider [phone] Candida Epps MD Unavailable Shala Bell RN Unavailable Unavailable Encounter Details Date Type Department Care Team Description 01/19/2020 [facility] Dylon Cr Myeloproli ferative disorder (H); Encounter [facility] MD Chriss Splenomegaly [address] [facility] [facility] [address] [place], [place] [address] [place] [address] [place], [place] [phone] [address] Social History Tobacco Use Types Packs/Day Years [...] been in contact with No / Unsure 01/19/2020 10:00 AM CDT someone who was confirmed or suspected to have Coronavirus / COVID-19? documented as of this encounter Medications at Time of Discharge Medication Sig Dispensed Refills Start Date End Date folic acid (FOLVITE) 1 MG 0 07/01/2019 tablet ibuprofen (ADVIL/MOTRIN) Take 200 mg by mouth 0 200 MG tablet every 6 hours as needed for mild pain (headaches) LORAZEPAM PO Take 0.5 mg by mouth 0 every 6 hours as needed for anxiety MORPHINE SULFATE PO Take 60 mg by mouth 2 0 times daily (Takes 15 mg extra BID if not working) oxyCODONE (ROXICODONE) 5 Take 1-2 tablets (5-10 30 tablet 0 08/28/2015 MG immediate release mg) by mouth every 6 tablet hours as needed for moderate to severe pain senna-docusate Take 1 tablet by mouth 60 tablet 1 6 (SENOKOT-S;PERICOLACE) 2 times daily 8.6-50 MG per tablet Sodium Bicarbonate-Citric Take 1 tablet by mouth 0 Acid (VASYL-SELTZER HEARTBURN PO) sodium-potassium Take 1 tablet by mouth 0 bicarbonate-citric acid (VASYL-SELTZER GOLD) [phone] MG TBEF solu-tab documented as of this encounter Plan of Treatment Not on filedocumented as of this encounter Procedures Procedure Name Priority Date/Time Associated Diagnosis Comme nts BLOOD COMPONENT Routine 01/19/2020 10:24 Myeloproliferative Re sults for this AM CDT disorder (H) procedure are i n the results section. ABO/RH TYPE AND Routine 01/19/2020 10:24 Myeloproliferative Re sults for this SCREEN AM CDT disorder (H) procedure are i n the results section. documented in this encounter Results Blood component (01/19/2020 10:24 AM CDT) [facility] Method Time Signature Unit Number [id number] 01/19/2020 [place] 11:29 AM [facility] Blood Red Blood Cells 01/19/2020 [place] Component LeukoReduced 11:29 AM [facility] Irradiated [facility] Division 00 01/19/2020 [facility] Number 11:29 AM [facility] Status of Released to care 01/20/2020 [place] Unit unit 11:52 PM [facility] Blood Product [id number] 01/19/2020 [facility] Code 11:29 AM [facility] Unit Status ISS [facility] Specimen Anatomical Collection Method Collection Time Receive d Time (Source) Location / / Volume Laterality 01/19/2020 10:24 01/19/2020 AM CDT 10:28 AM CDT Dylon Cr MD LABORATORY Performing Organization Address City/State/ZIP Code Phon e Number M [facility] [address], [place] [address] [facility] [address] [place], [place] [address], [facility] [phone] ABO/Rh type and screen (01/19/2020 10:24 AM CDT) [facility] Method Time Signature Units Ordered 1 01/19/2020 [place] 11:29 AM [facility] ABO A 01/19/2020 [place] 11:28 AM [facility] RH(D) Pos [facility] Antibody Neg 01/19/2020 [place] Screen 11:28 AM [facility] Test Valid [place] 01/19/2020 [place] Only At [facility] 10:43 AM [facility] Specimen 01/22/2020 01/19/2020 [place] Expires 10:43 AM [facility] Crossmatch Red Blood 01/19/2020 [place] Cells 11:29 AM [facility] Specimen Anatomical Collection Method Collection Time Receive d Time (Source) Location / / Volume Laterality Blood specimen 01/19/2020 10:24 0 (specimen) AM CDT 10:28 AM CDT Dylon Cr MD LAB - BLOOD BANK TEST ORDER Performing Organization Address City/State/ZIP Code Phon e Number M [facility] [address], [place] [address] [facility] [address] [place], [place] [address] [facility] [phone] documented in this encounter 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
--- OUTSIDE RECORDS SUMMARY | 2022-05-02 12:14 | XMS_ITS | Encounter Summary ---
:1970 Author Organization [place] Address [address] [place] [address] Care Team Providers Name Role Phone No Ref-Primary, Physician Primary Care Provider [phone] Candida Epps MD Unavailable Shala Bell RN Unavailable Unavailable Encounter Details Date Type Department Care Team Description 02/17/2020 [facility] Dylon Cr Myeloproli ferative Encounter [facility] Laboratory MD Chriss disorder (H) [address], [place] [address] [place] [address] [place], [place] [phone] [address] Social History Tobacco Use Types Packs/Day [...] been in contact with No / Unsure 02/17/2020 2:54 PM CDT someone who was confirmed or suspected [...] by mouth 0 bicarbonate-citric acid (VASYL-SELTZER GOLD) [phone] MG TBEF solu-tab documented as of this encounter Plan of Treatment Not on filedocumented as of this encounter Procedures Procedure Name Priority Date/Time Associated Diagnosis Comme nts BLOOD COMPONENT Routine 02/17/2020 3:02 Myeloproliferative Res ults for this PM CDT disorder (H) procedure are i n the results section. ABO/RH TYPE AND Routine 02/17/2020 3:02 Myeloproliferative Res ults for this SCREEN PM CDT disorder (H) procedure are i n the results section. documented in this encounter Results Blood component (02/17/2020 3:02 PM CDT) [facility] Method Time Signature Unit Number [id number] 02/17/2020 [place] 4:59 PM [facility] Blood Red Blood Cells 02/17/2020 [place] Component LeukoReduced 4:59 PM [facility] Irradiated HOSPITAL Division 00 02/17/2020 [facility] Number 4:59 PM [facility] Status of Released to care 02/18/2020 [place] Unit unit 11:52 PM [facility] Blood Product [id number] 02/17/2020 [facility] Code 4:59 PM [facility] Unit Status ISS [facility] Specimen Anatomical Collection Method Collection Time Receive d Time (Source) Location / / Volume Laterality 02/17/2020 3:02 PM 0 3:06 CDT PM CDT Dylon Cr MD LABORATORY Performing Organization Address City/State/ZIP Code Phon e Number M [facility] [address] [place], [place] [address] [facility] [address] [place], [place] [address], [facility] [phone] ABO/Rh type and screen (02/17/2020 3:02 PM CDT) [facility] gist Method Time Signature Units Ordered 1 02/17/2020 [place] 4:59 PM T [facility] ABO A 02/17/2020 [place] 4:39 PM [facility] RH(D) Pos [facility] Antibody Neg 02/17/2020 [place] Screen 4:39 PM [facility] Test Valid [place] 02/17/2020 [place] Only At [facility] 4:57 PM [facility] Specimen 02/20/2020 02/17/2020 [place] Expires 4:57 PM [facility] Crossmatch Red Blood 02/17/2020 [place] Cells 4:59 PM [facility] Specimen Anatomical Collection Method Collection Time Receive d Time (Source) Location / / Volume Laterality Blood specimen 02/17/2020 3:02 PM 020 3:06 (specimen) CDT PM CDT Dylon Cr MD LAB - BLOOD BANK TEST ORDER Performing Organization Address City/State/ZIP Code Phon e Number M [place] [address] [place], [place] [address] [facility] [address] [place], [place] [address], [facility] [phone] documented in this encounter 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
--- OUTSIDE RECORDS SUMMARY | 2022-05-02 12:14 | XMS_ITS | Encounter Summary ---
:1970 Author Organization [place] Address [address] [place] [address] Care Team Providers Name Role Phone No Ref-Primary, Physician Primary Care Provider [phone] Candida Epps MD Unavailable Shala Bell RN Unavailable Unavailable Encounter Details Date Type Department Care Team Description 04/28/2020 Travel Social History Tobacco Use Types Packs/Day [...] been in contact with No / Unsure 04/28/2020 11:57 AM CDT someone who was confirmed or suspected to have Coronavirus / COVID-19? documented as of 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 Care Teams Vp Purchasing Relationship Specialty Start Date End Date No Ref-Primary, PCP - General 09/30/17 Physician Candida Epps MD MD Internal Medicine 01/15/19 [address] [facility] [address] [place] [address] Shala Bell, HELENE Specialty Care Hematology & Oncology 01/15/19 07/23/21 Coordinator documented as of this encounter
--- OUTSIDE RECORDS SUMMARY | 2022-05-02 12:14 | XMS_ITS | Encounter Summary ---
:1970 Author Organization [place] Address [address] [place] [address] Care Team Providers Name Role Phone No Ref-Primary, Physician Primary Care Provider [phone] Candida Epps MD Unavailable Shala Bell RN Unavailable Unavailable Reason for Visit Reason Comments Blood Transfusion 1 Unit PRBC Encounter Details Date Type Department Care Team Description 04/28/2020 Infusion Therapy [facility] Dylon Cr Myelop roliferative Visit [facility] MD Chriss disorder (H) (Primary Dx) [facility] ONCOLOGY [facility] Medical Ctr [address] [facility] [place] [address] [place], [place] [address] [place], [place] [phone] [address] (Work) [phone] Social History Tobacco Use Types Packs/Day Years [...] / COVID-19? documented as of this encounter Last Filed Vital Signs Vital Sign Reading Time Taken Comments Blood Pressure 127/79 04/28/2020 2:30 PM CDT Pulse 78 04/28/2020 2:30 PM CDT Temperature 37.1 ??C (98.8 ??F) 04/28/2020 2:30 PM CDT Respiratory Rate 16 04/28/2020 2:30 PM CDT Oxygen Saturation 97% 04/28/2020 2:30 PM CDT Inhaled Oxygen Concentration - - Weight - - Height - - Body Mass Index - - documented in this encounter Progress Notes Jesusita Gloria, RN - 04/28/2020 12:00 PM CDT Infusion Nursing Note: eJnnifer Dobbs presents today for [address] Cr for HGB of 6.6 on 04/27/20.. Patient seen by provider today: No Merchandise Presentation Manager present during visit today: Not Applicable. Note: Patient reports is feeling well and offers no new issues or concerns today. Patient denies fevers, chills or signs of infection. Intravenous Access: Peripheral IV placed. PIV site C/D/I. PIV flushes well Treatment Conditions: Blood transfusion consent signed on 12/01/2019. Post Infusion Assessment: Patient tolerated infusion without incident. Blood return noted pre and post infusion. Site patent and intact, free from redness, edema or discomfort. No evidence of extravasations. Access discontinued per protocol. Patient reports is feeling well post completion of transfusion. Discharge Plan: Discharge instructions reviewed with: Patient. Patient and/or family verbalized understanding of discharge instructions and all questions answered. Patient discharged in stable condition accompanied by: . Departure Mode: Ambulatory. Patient will have labs drawn per routine. Dr. Cr's office will contact our clinic to schedule appointment for transfusion if needed. Jesusita Gloria RN, BSN, OCN on 04/28/2020 at 3:26 PM documented in this encounter Plan of Treatment Not on filedocumented as of this encounter Procedures Procedure Name Priority Date/Time Associated Diagnosis Comme nts TRANSFUSE RED BLOOD Routine 04/28/2020 1:14 PM Myeloproliferat otoniel disorder CELL UNIT CDT (H) documented in this encounter Results Transfuse red blood cell unit (04/28/2020 3:21 PM CDT) Dylon Cr MD IP NURSING BLOOD ADMINISTRAT ON Transfuse red blood cell unit (04/28/2020 3:21 PM CDT) Dylon Cr MD IP NURSING BLOOD ADMINISTRAT ON documented in this encounter Visit Diagnoses Diagnosis 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
--- OUTSIDE RECORDS SUMMARY | 2022-05-02 12:14 | XMS_ITS | Encounter Summary ---
:1970 Author Organization [place] Address [address] [place] [address] Care Team Providers Name Role Phone No Ref-Primary, Physician Primary Care Provider [phone] Candida Epps MD Unavailable Shala Bell RN Unavailable Unavailable Encounter Details Date Type Department Care Team Description 12/30/2019 [facility] Dylon Cr Myeloproli ferative Encounter [facility] Laboratory MD Chriss disorder (H) [address] [place] [address], [place] [address] [place] [address] [place], [place] [phone] [address] Social History Tobacco Use Types Packs/Day [...] been in contact with No / Unsure 12/30/2019 4:01 PM CDT someone who was confirmed or [...] by mouth 0 bicarbonate-citric acid (VASYL-SELTZER GOLD) [phone] MG TBEF solu-tab documented as of this encounter Plan of Treatment Not on filedocumented as of this encounter Procedures Procedure Name Priority Date/Time Associated Diagnosis Comme nts BLOOD COMPONENT Routine 12/30/2019 4:15 Myeloproliferative Res ults for this PM CDT disorder (H) procedure are i n the results section. BLOOD COMPONENT Routine 12/30/2019 4:15 Myeloproliferative Res ults for this PM CDT disorder (H) procedure are i n the results section. ABO/RH TYPE AND Routine 12/30/2019 4:15 Myeloproliferative Res ults for this SCREEN PM CDT disorder (H) procedure are i n the results section. documented in this encounter Results Blood component (12/30/2019 4:15 PM CDT) [facility] Method Time Signature Unit Number [id number] 12/30/2019 [facility] 9:38 PM [facility] Blood Red Blood Cells 12/30/2019 [place] Component LeukoReduced 9:38 PM [facility] Irradiated HOSPITAL Division 00 12/30/2019 [facility] Number 9:38 PM [facility] Status of Released to care 12/31/2019 [place] Unit unit 11:52 PM [facility] Blood Product [id number] 12/30/2019 [place] Code 9:38 PM [facility] Unit Status ISS [facility] Specimen Anatomical Collection Method Collection Time Receive d Time (Source) Location / / Volume Laterality 12/30/2019 4:15 PM 0 4:16 CDT PM CDT Dylon Cr MD LABORATORY Performing Organization Address City/[facility]/ZIP Code Phon e Number M [facility] [address] [place], [place] [address] [facility] [address] [place], [place] [address], [facility] [phone] Blood component (12/30/2019 4:15 PM CDT) [facility] Method Time Signature Unit Number [id number] 12/30/2019 [facility] 9:38 PM [facility] Blood Red Blood Cells 12/30/2019 [facility] Component LeukoReduced 9:38 PM [facility] Irradiated HOSPITAL Division 00 12/30/2019 [facility] Number 9:38 PM [facility] Status of Released to care 12/31/2019 [place] Unit unit 11:52 PM [facility] Blood Product [id number] 12/30/2019 [facility] Code 9:38 PM [facility] Unit Status ISS [facility] Specimen Anatomical Collection Method Collection Time Receive d Time (Source) Location / / Volume Laterality 12/30/2019 4:15 PM 0 4:16 CDT PM CDT Dylon Cr MD LABORATORY Performing Organization Address [facility]/ZIP Code Phon e Number M [facility] [address] [place], [place] [address] [facility] [address] [place], [place] [address], [facility] [phone] ABO/Rh type and screen (12/30/2019 4:15 PM CDT) [facility] Method Time Signature Units Ordered 2 12/30/2019 [facility] 5:39 PM [facility] ABO A 12/30/2019 [facility] 5:16 PM [facility] RH(D) Pos [facility] Antibody Neg 12/30/2019 [place] Screen 5:16 PM [facility] Test Valid [place] 12/30/2019 [facility] Only At [facility] 5:39 PM [facility] Specimen 01/02/2020 12/30/2019 [facility] Expires 5:39 PM [facility] Crossmatch Red Blood 12/30/2019 [place] Cells 5:39 PM [facility] Specimen Anatomical Collection Method Collection Time Receive d Time (Source) Location / / Volume Laterality Blood specimen 12/30/2019 4:15 PM 020 4:16 (specimen) CDT PM CDT Dylon Cr MD LAB - BLOOD BANK TEST ORDER Performing Organization Address City/State/ZIP Code Phon e Number M [place] [address] [place] [address] [facility] [address] [phone] documented in this encounter 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
--- OUTSIDE RECORDS SUMMARY | 2022-05-02 12:14 | XMS_ITS | Encounter Summary ---
:1970 Author Organization [place] Address [address] [place] [address] Care Team Providers Name Role Phone No Ref-Primary, Physician Primary Care Provider [phone] Candida Epps MD Unavailable Shala Bell RN Unavailable Unavailable Reason for Visit Reason Comments Blood Transfusion 2U PRBC Encounter Details Date Type Department Care Team Description 01/14/2020 Infusion Therapy [facility] Dylon Cr Myelop roliferative Visit Cancer Center MD Chriss disorder (H) (Primary Dx) [facility] ONCOLOGY [facility] Medical Ctr [address] [facility] [place] [address] [place], [place] [address] [place], [place] [phone] [address] (Work) [phone] Social History Tobacco Use Types Packs/Day Years [...] been in contact with No / Unsure 01/14/2020 11:45 AM CDT someone who was confirmed or suspected to have Coronavirus / COVID-19? documented as of this encounter Last Filed Vital Signs Vital Sign Reading Time Taken Comments Blood Pressure 123/58 01/14/2020 3:15 PM CDT Pulse 83 01/14/2020 1:30 PM CDT Temperature 36.3 ??C (97.3 ??F) 01/14/2020 3:15 PM CDT Respiratory Rate - - Oxygen Saturation 99% 01/14/2020 3:15 PM CDT Inhaled Oxygen Concentration - - Weight - - Height - - Body Mass Index - - documented in this encounter Progress Notes Cathi Hernandez RN - 01/14/2020 12:00 PM CDT Infusion Nursing Note: Jennifer Dobbs presents today for 2U PRBC. Patient seen by provider today: No Blocker Hand present during visit today: Not Applicable. Note: Pt c/o abd discomfort due to enlarged spleen. States this is a chronic pain/issue and she willtake prn Oxycodone when she gets home Pt's left ankle started to swell again (same as last transfusion on 12/31/19 -- see sprayer auto parts note). Pt states she saw primary MD regarding this and was told there was not evidence of clot. Was told to elevated and use compression sock. Pt states the swelling improved with recommended therapy. Instructed pt to do the same again. Instructed pt to seek eval in ED over the weekend if develops any pain/redness anywhere on leg. Pt verbalized understanding Intravenous Access: Peripheral IV placed. Treatment Conditions: Blood transfusion consent signed 12/01/19. 5.3 on 01/09 at [facility]. Post Infusion Assessment: Patient tolerated infusion without incident. Blood return noted pre and post infusion. Site patent and intact, free from redness, edema or discomfort. No evidence of extravasations. Access discontinued per protocol. Discharge Plan: Discharge instructions reviewed with: Patient. Patient and/or family verbalized understanding of discharge instructions and all questions answered. AVS to patient via [employer]. Patient will return PRN for next appointment. Patient discharged in stable condition accompanied by: . Departure Mode: Ambulatory. Cathi Hernandez RN documented in this encounter Plan of Treatment Not on filedocumented as of this encounter Procedures Procedure Name Priority Date/Time Associated Diagnosis Comme nts TRANSFUSE RED BLOOD Routine 01/14/2020 1:44 PM Myeloproliferat otoniel disorder CELL UNIT CDT (H) TRANSFUSE RED BLOOD Routine 01/14/2020 12:08 PM Myeloprolifera tive disorder CELL UNIT CDT (H) documented in this encounter Results Transfuse red blood cell unit (01/14/2020 3:18 PM CDT) Dylon Cr MD IP NURSING BLOOD ADMINISTRAT ON Transfuse red blood cell unit (01/14/2020 3:18 PM CDT) Dylon Cr MD IP NURSING BLOOD ADMINISTRAT ON Transfuse red blood cell unit (01/14/2020 1:31 PM CDT) Dylon Cr MD IP NURSING BLOOD ADMINISTRAT ON ABO/Rh type and screen (01/13/2020 4:00 PM CDT) [facility] Method Time Signature Units Ordered 2 01/13/2020 [place] 4:37 PM T [facility] ABO A 01/13/2020 [place] 4:37 PM T [facility] RH(D) Pos [facility] Antibody Neg 01/13/2020 [place] Screen 4:37 PM [facility] Test Valid [place] 01/13/2020 [facility] Only At [facility] 4:37 PM [facility] Specimen 01/16/2020 01/13/2020 [place] Expires 4:37 PM [facility] Crossmatch Red Blood 01/13/2020 [place] Cells 4:37 PM [facility] Specimen Anatomical Collection Method Collection Time Receive d Time (Source) Location / / Volume Laterality Blood specimen 01/13/2020 4:00 PM 020 4:02 (specimen) CDT PM CDT Dylon Cr MD LAB - BLOOD BANK TEST ORDER Performing Organization Address City/State/ZIP Code Phon e Number M [facility] [address] [place] [address] [facility] [address] [phone] documented in this encounter Visit Diagnoses Diagnosis 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
--- OUTSIDE RECORDS SUMMARY | 2022-05-02 12:14 | XMS_ITS | Encounter Summary ---
:1970 Author Organization [place] Address [address] [place] [address] Care Team Providers Name Role Phone No Ref-Primary, Physician Primary Care Provider Candida Epps MD Unavailable Shala Bell RN Unavailable Unavailable Encounter Details Date Type Department Care Team Description 03/21/2020 [facility] Dylon Cr Myeloproli ferative Encounter [facility] MD Chriss disorder (H) [address] [place] [address] [place], [place] [address] [place] [address] [place], [place] [phone] [address] Social History Tobacco Use Types Packs/Day [...] been in contact with No / Unsure 03/21/2020 5:08 PM CDT someone who was confirmed or [...] by mouth 0 bicarbonate-citric acid (VASYL-SELTZER GOLD) [phone] MG TBEF solu-tab documented as of this encounter Plan of Treatment Not on filedocumented as of this encounter Procedures Procedure Name Priority Date/Time Associated Diagnosis Comme nts BLOOD COMPONENT Routine 03/21/2020 5:30 Myeloproliferative Res ults for this PM CDT disorder (H) procedure are i n the results section. ABO/RH TYPE AND Routine 03/21/2020 5:30 Myeloproliferative Res ults for this SCREEN PM CDT disorder (H) procedure are i n the results section. documented in this encounter Results Blood component (03/21/2020 5:30 PM CDT) [facility] Method Time Signature Unit Number [id number] 03/21/2020 [place] 7:41 PM [facility] Blood Red Blood Cells 03/21/2020 [place] Component LeukoReduced 7:41 PM [facility] Irradiated HOSPITAL Division 00 03/21/2020 [place] Number 7:41 PM [facility] Status of Released to care 03/22/2020 [place] Unit unit 11:52 PM [facility] Blood Product [id number] 03/21/2020 [place] Code 7:41 PM [facility] Unit Status ISS [facility] Specimen Anatomical Collection Method Collection Time Receive d Time (Source) Location / / Volume Laterality 03/21/2020 5:30 PM 0 5:33 CDT PM CDT Dylon Cr MD LABORATORY Performing Organization Address City/State/ZIP Code Phon e Number M [facility] [address] [place], [place] [address] [facility] [address] [place], [place] [address], [facility] [phone] ABO/Rh type and screen (03/21/2020 5:30 PM CDT) [facility] gist Method Time Signature Units Ordered 1 03/21/2020 [place] 7:41 PM T [facility] ABO A 03/21/2020 [place] 8:03 PM [facility] RH(D) Pos [facility] Antibody Neg 03/21/2020 [place] Screen 8:03 PM [facility] Test Valid [place] 03/21/2020 [place] Only At [facility] 7:41 PM [facility] Specimen 03/24/2020 03/21/2020 [place] Expires 7:41 PM [facility] Crossmatch Red Blood 03/21/2020 [place] Cells 7:41 PM [facility] Specimen Anatomical Collection Method Collection Time Receive d Time (Source) Location / / Volume Laterality Blood specimen 03/21/2020 5:30 PM 020 5:33 (specimen) CDT PM CDT Dylon Cr MD LAB - BLOOD BANK TEST ORDER Performing Organization Address City/State/ZIP Code Phon e Number M [place] [address] [place], [place] [address] [facility] [address] [place], [place] [address], [facility] [phone] documented in this encounter 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
--- OUTSIDE RECORDS SUMMARY | 2022-05-02 12:14 | XMS_ITS | Encounter Summary ---
:1970 Author Organization [place] Address [address] [place] [address] Care Team Providers Name Role Phone No Ref-Primary, Physician Primary Care Provider [phone] Candida Epps MD Unavailable Shala Bell RN Unavailable Unavailable Ronaldo jones MD Unavailable Candida Epps MD Unavailable Boaz Garcia MD Unavailable Rodrick Turner MD Unavailable Reason for Visit Reason Comments Blood Transfusion 1 unit PRBC's Encounter Details Date Type Department Care Team Description 05/29/2020 Infusion Therapy [facility] Dylon Cr Myelop roliferative Visit Cancer Center MD Chriss disorder (H) (Primary Dx) [facility] ONCOLOGY [facility] Medical Ctr [address] [facility] [place] [address] [place], [place] [address] [address] [place], [place] [phone] [address] (Work) [phone] Social History Tobacco Use Types Packs/Day Years [...] been in contact with No / Unsure 05/29/2020 12:13 PM CONSUMER LENDING MANAGER someone who was confirmed or suspected to have Coronavirus / COVID-19? documented as of this encounter Last Filed Vital Signs Vital Sign Reading Time Taken Comments Blood Pressure 118/72 05/29/2020 2:20 PM CONSUMER LENDING MANAGER Pulse 63 05/29/2020 2:20 PM CONSUMER LENDING MANAGER Temperature 36.4 ??C (97.6 ??F) 05/29/2020 2:20 PM CONSUMER LENDING MANAGER Respiratory Rate 16 05/29/2020 2:20 PM CONSUMER LENDING MANAGER Oxygen Saturation 98% 05/29/2020 1:09 PM CONSUMER LENDING MANAGER Inhaled Oxygen Concentration - - Weight - - Height - - Body Mass Index - - documented in this encounter Progress Notes Aleyda Loera RN - 05/29/2020 12:30 PM CST Infusion Nursing Note: Jennifer Dobbs presents today for 1 unit of PRBC. Patient seen by provider today: No Forcer Maker present during visit today: Not Applicable. Note: Patient feeling slightly fatigued, SOB with excerption and light headed if stands or moves toofast. She reports feeling well post completion of transfusion. Intravenous Access: Peripheral IV placed. Treatment Conditions: Blood transfusion consent signed 12/01/19. Hemoglobin 6.6 on 05/25/20. Post Infusion Assessment: Patient tolerated infusion without incident. Blood return noted pre and post infusion. Site patent and intact, free from redness, edema or discomfort. No evidence of extravasations. Access discontinued per protocol. Discharge Plan: Discharge instructions reviewed with: Patient. Patient and/or family verbalized understanding of discharge instructions and all questions answered. Patient discharged in stable condition accompanied by: self. Departure Mode: Ambulatory. Aleyda Loera RN UMER LENDING MANAGER documented in this encounter Plan of Treatment Not on filedocumented as of this encounter Procedures Procedure Name Priority Date/Time Associated Diagnosis Comme nts TRANSFUSE RED BLOOD Routine 05/29/2020 12:47 PM Myeloprolifera tive disorder CELL UNIT CONSUMER LENDING MANAGER (H) documented in this encounter Results Transfuse red blood cell unit (05/29/2020 2:49 PM CONSUMER LENDING MANAGER) Dylon Cr MD IP NURSING BLOOD ADMINISTRAT ON Transfuse red blood cell unit (05/29/2020 2:49 PM CONSUMER LENDING MANAGER) Dylon Cr MD IP NURSING BLOOD ADMINISTRAT ON documented in this encounter Visit Diagnoses Diagnosis 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 documented in this encounter Care Teams Temporary Administrative Assistant Relationship Specialty Start Date End Date No Ref-Primary, PCP - General 09/30/17 Physician Candida Epps MD MD Internal Medicine 01/15/19 420 [facility] [address] [place] [address] Shala Bell, HELENE Specialty Care Hematology & Oncology 01/15/19 07/23/21 Coordinator Ronaldo Cheatham, Assigned Heart and 05/05/20 MD Vascular Provider 420 [facility] [address] [place] [address] Candida Epps MD Assigned Cancer Care 05/05/20 07/22/20 [facility] Provider [facility] [address] [place], [place] [id number] Boaz Garcia Assigned Surgical 05/05/20 01/25/21 MD [place] Provider 420 [facility] [address] [place] [address] Rodrick Turner MD Assigned Sleep Provider 05/05/20 01/06/[address] [place] [address] [place] [address] documented as of this encounter
--- OUTSIDE RECORDS SUMMARY | 2022-05-02 12:14 | XMS_ITS | Encounter Summary ---
:1970 Author Organization [place] Address [address] [place] [address] Care Team Providers Name Role Phone No Ref-Primary, Physician Primary Care Provider [phone] Candida Epps MD Unavailable Shala Bell RN Unavailable Unavailable Ronaldo Cheatham MD Unavailable Candida Epps MD Unavailable Boaz Garcia MD Unavailable Rodrick Turner MD Unavailable Encounter Details Date Type Department Care Team Description 05/29/2020 Travel Social History Tobacco Use Types Packs/Day [...] with No / Unsure 05/29/2020 12:13 PM NITRIC ACID CONCENTRATOR OPERATOR someone who was confirmed or suspected to have Coronavirus / COVID-19? documented as of 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 Care Teams Carpenter Inspector Relationship Specialty Start Date End Date No Ref-Primary, PCP - General 09/30/17 Physician Candida Epps MD MD Internal Medicine 01/15/[address] [address] Shala Bell, RN Specialty Care Hematology & Oncology 01/15/19 07/23/21 Coordinator Ronaldo Cheatham, Assigned Heart and 05/05/20 MD Vascular Provider 420 [facility] [address] [place] [address] Candida Epps MD Assigned Cancer Care 05/05/20 07/22/20 [facility] Provider [facility] [address] [place] [address] Boaz Garcia Assigned Surgical 05/05/20 01/25/21 MD [place] Provider [address] [place] [address] 195 [place] [address] Rodrick Turner MD Assigned Sleep Provider 05/05/20 01/06/[address] [place] [address] [place] [address] documented as of this encounter
--- OUTSIDE RECORDS SUMMARY | 2022-05-02 12:14 | XMS_ITS | Encounter Summary ---
:1970 Author Organization [place] Address [address] [place] [address] Care Team Providers Name Role Phone No Ref-Primary, Physician Primary Care Provider [phone] Candida Epps MD Unavailable Shala Bell RN Unavailable Unavailable Reason for Visit Reason Comments Blood Transfusion 2 units prbc Encounter Details Date Type Department Care Team Description 12/31/2019 Infusion Therapy [facility] Dylon Cr Myelop roliferative Visit Cancer Center MD Chriss disorder (H) (Primary Dx) [facility] ONCOLOGY [facility] Medical Ctr [address] [facility] [place] [address] [place], [place] [address] [place], [place] [phone] [address] (Work) [phone] Social History Tobacco Use Types Packs/Day Years [...] been in contact with No / Unsure 12/31/2019 9:01 AM CDT someone who was confirmed or suspected to have Coronavirus / COVID-19? documented as of this encounter Last Filed Vital Signs Vital Sign Reading Time Taken Comments Blood Pressure 106/63 12/31/2019 11:00 AM CDT Pulse 84 12/31/2019 11:00 AM CDT Temperature 37.1 ??C (98.7 ??F) 12/31/2019 11:00 AM CDT Respiratory Rate 16 12/31/2019 11:00 AM CDT Oxygen Saturation 96% 12/31/2019 9:41 AM CDT Inhaled Oxygen Concentration - - Weight - - Height - - Body Mass Index - - documented in this encounter Progress Notes Clemencia Yusuf RN - 12/31/2019 9:00 AM CDT Infusion Nursing Note: Jennifer Dobbs presents today for 2 units prbc. Patient seen by provider today: No Rn Renal present during visit today: Not Applicable. Note: had hgb drawn just prior to coming to appt. Today's result = 4.4. Was drawn at [facility], they areaware of results, per pt.. Did not sleep last night, hasn't eaten today - uncomfortable in chair, restless. VSS improved by end of 2nd unit. Has art LE edema, L>R. No pain in calves. 1st visit with primary MD yesterday - he wanted her to go to ED but she wouldn't. Today she is concerned about her swelling. Her spouse makes her phone calls and appts, she will have him call MD when he picks her up. Intravenous Access: Peripheral IV placed. Treatment Conditions: Blood transfusion consent signed 12/01/201912/29 hgb. 5.1 12/30 hgb 4.4 Post Infusion Assessment: Patient tolerated infusion without incident. Site patent and intact, free from redness, edema or discomfort. No evidence of extravasations. Access discontinued per protocol. Discharge Plan: Discharge instructions reviewed with: Patient. Patient and/or family verbalized understanding of discharge instructions and all questions answered. Patient discharged in stable condition accompanied by: self. Departure Mode: Wheelchair. Clemencia Yusuf RN documented in this encounter Plan of Treatment Not on filedocumented as of this encounter Procedures Procedure Name Priority Date/Time Associated Diagnosis Comme nts TRANSFUSE RED BLOOD Routine 12/31/2019 10:45 AM Myeloprolifera tive disorder CELL UNIT CDT (H) TRANSFUSE RED BLOOD Routine 12/31/2019 9:21 AM Myeloproliferat otoniel disorder CELL UNIT CDT (H) documented in this encounter Results Transfuse red blood cell unit (12/31/2019 3:25 PM CDT) Dylon Cr MD IP NURSING BLOOD ADMINISTRAT ON Transfuse red blood cell unit (12/31/2019 3:25 PM CDT) Dylon Cr MD IP NURSING BLOOD ADMINISTRAT ON Transfuse red blood cell unit (12/31/2019 10:53 AM CDT) Dylon Cr MD IP NURSING BLOOD ADMINISTRAT ON ABO/Rh type and screen (12/30/2019 4:15 PM CDT) [facility] Method Time Signature Units Ordered 2 12/30/2019 [place] 5:39 PM CDT [facility] ABO A 12/30/2019 [place] 5:16 PM CDT [facility] RH(D) Pos [facility] Antibody Neg 12/30/2019 [place] Screen 5:16 PM [facility] Test Valid [place] 12/30/2019 [place] Only At [facility] 5:39 PM T [facility] Specimen 01/02/2020 12/30/2019 [place] Expires 5:39 PM [facility] Crossmatch Red Blood 12/30/2019 [place] Cells 5:39 PM [facility] Specimen Anatomical Collection Method Collection Time Receive d Time (Source) Location / / Volume Laterality Blood specimen 12/30/2019 4:15 PM 020 4:16 (specimen) CDT PM CDT Dylon Cr MD LAB - BLOOD BANK TEST ORDER Performing Organization Address City/State/ZIP Code Phon e Number M [facility] [address] [place] [address] [facility] [address] [phone] documented in this encounter Visit Diagnoses Diagnosis 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
--- OUTSIDE RECORDS SUMMARY | 2022-05-02 12:14 | XMS_ITS | Encounter Summary ---
:1970 Author Organization [place] Address [address] [place] [address] Care Team Providers Name Role Phone No Ref-Primary, Physician Primary Care Provider [phone] Canidda Epps MD Unavailable Shala Bell RN Unavailable Unavailable Encounter Details Date Type Department Care Team Description 01/13/2020 Travel Social History Tobacco Use Types Packs/Day [...] been in contact with No / Unsure 01/13/2020 3:27 PM CDT someone who was confirmed or suspected to have Coronavirus / COVID-19? documented as of 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 Care Teams Block Trader Relationship Specialty Start Date End Date No Ref-Primary, PCP - General 09/30/17 Physician Candida Epps MD MD Internal Medicine 01/15/19 [address] [place] [facility] [address] [place] [address] Shala Bell, HELENE Specialty Care Hematology & Oncology 01/15/19 07/23/21 Coordinator documented as of this encounter
--- OUTSIDE RECORDS SUMMARY | 2022-05-02 12:14 | XMS_ITS | Encounter Summary ---
:1970 Author Organization [place] Address [address] [place] [address] Care Team Providers Name Role Phone No Ref-Primary, Physician Primary Care Provider [phone] Candida Epps MD Unavailable Shlaa Bell RN Unavailable Unavailable Reason for Visit Reason Comments Blood Transfusion 1 unit prbc Encounter Details Date Type Department Care Team Description 03/22/2020 Infusion Therapy [facility] Dylon Cr Myelop roliferative Visit Cancer Center MD Chriss disorder (H) (Primary Dx) [facility] ONCOLOGY [facility] Medical Ctr [address] [facility] [place] [address] [place], [place] [address] [place], [place] [phone] [address] (Work) [phone] Social History Tobacco Use Types Packs/Day Years [...] Sign Reading Time Taken Comments Blood Pressure 121/74 03/22/2020 12:10 PM CDT Pulse 70 03/22/2020 12:10 PM CDT Temperature 36.3 ??C (97.3 ??F) 03/22/2020 12:10 PM CDT Respiratory Rate 16 03/22/2020 12:10 PM CDT Oxygen Saturation 96% 03/22/2020 12:10 PM CDT Inhaled Oxygen Concentration - - Weight - - Height - - Body Mass Index - - documented in this encounter Progress Notes Bre Mosher RN - 03/22/2020 10:00 AM CDT Infusion Nursing Note: Jennifer Dobbs presents today for 1 unit PRBC. Patient seen by provider today: No Belt Picker present during visit today: Not Applicable. Note: Patient continues to have abdominal pain/distention from enlarged spleen as well as intermittent vomiting. Using pain meds with relief. Transfusion started at 120ml/hour and increased to 270ml/hour. Intravenous Access: Peripheral IV placed. Treatment Conditions: Blood transfusion consent signed 12/01/2019. HGB 6.3. Post Infusion Assessment: Patient tolerated infusion without incident. Blood return noted pre and post infusion. Site patent and intact, free from redness, edema or discomfort. No evidence of extravasations. Access discontinued per protocol. Discharge Plan: Patient discharged in stable condition accompanied by: self. Departure Mode: Ambulatory. 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
--- OUTSIDE RECORDS SUMMARY | 2022-05-02 12:14 | XMS_ITS | Encounter Summary ---
:1970 Author Organization [place] Address [address] [facility] [place] [address] Care Team Providers Name Role Phone No Ref-Primary, Physician Primary Care Provider [phone] Candida Epps MD Unavailable Shala Bell RN Unavailable Unavailable Encounter Details Date Type Department Care Team Description 01/17/2020 Medical Correspondence [facility] Scan, BLOOD/PLATELET/PLAS Health Info Mgmt Non-Provider MA ORDER FO Srvcs [facility] [address] [place] [address] [place] [address] Social History Tobacco Use Types Packs/Day Years [...] on filedocumented in this encounter Care Teams Pond Supervisor Relationship Specialty Start Date End Date No Ref-Primary, PCP - General 09/30/17 Physician Candida Epps MD MD Internal Medicine 01/15/19 [facility] [address] [place] [address] Shala Bell, HELENE Specialty Care Hematology & Oncology 01/15/19 07/23/21 Coordinator documented as of this encounter
--- OUTSIDE RECORDS SUMMARY | 2022-05-02 12:14 | XMS_ITS | Encounter Summary ---
:1970 Author Organization [place] Address [address] [place] [address] Care Team Providers Name Role Phone No Ref-Primary, Physician Primary Care Provider [phone] Candida Epps MD Unavailable Shala Bell RN Unavailable Unavailable Ronaldo Cheatham MD Unavailable Candida Epps MD Unavailable Boaz Garcia MD Unavailable Rodrick Turner MD Unavailable Encounter Details Date Type Department Care Team Description 05/27/2020 Travel Social History Tobacco Use Types Packs/Day [...] been in contact with No / Unsure 05/27/2020 10:37 AM DERRICK BOAT CAPTAIN someone who was confirmed or suspected to have Coronavirus / COVID-19? documented as of 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 Care Teams Road Design Engineer Relationship Specialty Start Date End Date No Ref-Primary, PCP - General 09/30/17 Physician Candida Epps MD MD Internal Medicine 01/15/[address] [address] Shala Bell, RN Specialty Care Hematology & Oncology 01/15/19 07/23/21 Coordinator Ronaldo Cheatham, Assigned Heart and 05/05/20 MD Vascular Provider 420 [facility] [address] [place] [address] Candida Epps MD Assigned Cancer Care 05/05/20 07/22/20 [facility] Provider [facility] [address] [place] [address] Boaz Garcia Assigned Surgical 05/05/20 01/25/21 MD [place] Provider [address] [place] [address] 195 [place] [address] Rodrick Turner MD Assigned Sleep Provider 05/05/20 01/06/[address] [place] [address] [place] [address] documented as of this encounter
--- OUTSIDE RECORDS SUMMARY | 2022-05-02 12:14 | XMS_ITS | Encounter Summary ---
:1970 Author Organization [place] Address [address] [place] [address] Care Team Providers Name Role Phone No Ref-Primary, Physician Primary Care Provider [phone] Candida Epps MD Unavailable Shala Bell RN Unavailable Unavailable Ronaldo jones MD Unavailable Candida Epps MD Unavailable Boaz Garcia MD Unavailable Rodrick Turner MD Unavailable Encounter Details Date Type Department Care Team Description 05/27/2020 [facility] Dylon Cr Myeloproli ferative Encounter [facility] MD Chriss disorder (H) [address] [place], [place] [address] [place] [address] [place], [place] [phone] [address] Social History Tobacco Use Types Packs/Day [...] with No / Unsure 05/27/2020 10:37 AM RESIDENTIAL SALES REP someone who was confirmed or suspected to [...] by mouth 0 bicarbonate-citric acid (VASYL-SELTZER GOLD) [phone] MG TBEF solu-tab documented as of this encounter Plan of Treatment Not on filedocumented as of this encounter Procedures Procedure Name Priority Date/Time Associated Diagnosis Comme nts BLOOD COMPONENT Routine 05/27/2020 10:46 Myeloproliferative Re sults for this AM RESIDENTIAL SALES REP disorder (H) procedure are i n the results section. ABO/RH TYPE AND Routine 05/27/2020 10:46 Myeloproliferative Re sults for this SCREEN AM RESIDENTIAL SALES REP disorder (H) procedure are i n the results section. documented in this encounter Results Blood component (05/27/2020 10:46 AM [facility]) [facility] Method Time Signature Unit Number [id number] 05/27/2020 [facility] 11:[address] [facility] Blood Red Blood Cells 05/27/2020 [facility] Component LeukoReduced 11:27 AM [facility] Type Irradiated [facility] HOSPITAL Division 00 05/27/2020 [facility] Number 11:[address] [facility] Status of Released to care 05/29/2020 [place] Unit unit 11:[address] [facility] Blood Product [id number] 05/27/2020 [facility] Code 11:[address] [facility] Unit Status ISS [facility] Specimen Anatomical Collection Method Collection Time Receive d Time (Source) Location / / Volume Laterality 05/27/2020 10:46 05/27/2020 AM RESIDENTIAL SALES REP 10:47 AM RESIDENTIAL SALES REP Dylon Cr MD LABORATORY Performing Organization Address City/[facility]/ZIP Code Phon e Number M [facility] [address] [place], [place] [address] [place] [address] [address] [place], [place] [address], [facility] [phone] ABO/Rh type and screen (05/27/2020 10:46 AM RESIDENTIAL SALES REP) [facility] gist Method Time Signature Units Ordered 1 05/29/2020 [place] 5:20 AM [facility] ABO A 05/27/2020 [facility] 11:26 AM [facility] RH(D) Pos [facility] Antibody Neg 05/27/2020 [place] Screen 11:26 AM [facility] Test Valid [place] 05/27/2020 [facility] Only At [facility] 11:27 AM [facility] Specimen 05/30/2020 05/27/2020 [place] Expires 11:27 AM [facility] Crossmatch Red Blood 05/29/2020 [place] Cells 5:20 AM [facility] Specimen Anatomical Collection Method Collection Time Receive d Time (Source) Location / / Volume Laterality Blood specimen 05/27/2020 10:46 0 (specimen) AM RESIDENTIAL SALES REP 10:47 AM RESIDENTIAL SALES REP Dylon Cr MD LAB - BLOOD BANK TEST ORDER Performing Organization Address City/[facility]/ZIP [facility] Phon e Number M [facility] [address] [place], [place] [address] [facility] [address] [place], [place] [address], [facility] [phone] documented in this encounter 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 documented in this encounter Care Teams Tetryl Wringer Operator Relationship Specialty Start Date End Date No Ref-Primary, PCP - General 09/30/17 Physician Candida Epps MD MD Internal Medicine 01/15/[address] [address] Shala Bell, RN Specialty Care Hematology & Oncology 01/15/19 07/23/21 Coordinator Ronaldo Cheatham, Assigned Heart and 05/05/20 MD Vascular Provider 420 [facility] [address] [place] [address] Candida Epps MD Assigned Cancer Care 05/05/20 07/22/20 [facility] Provider [facility] [address] [place] [address] Boaz Garcia Assigned Surgical 05/05/20 01/25/21 MD Constantine Provider 420 [facility] [address] [place] [address] Rodrick Turner MD Assigned Sleep Provider 05/05/20 01/06/[address] [place], [place] [address]E [facility] [address] [place], [place] [id number] documented as of this encounter
--- OUTSIDE RECORDS SUMMARY | 2022-05-02 12:14 | XMS_ITS | Encounter Summary ---
:1970 Author Organization [place] Address [facility]0 [facility] [place] [address] Care Team Providers Name Role Phone No Ref-Primary, Physician Primary Care Provider [phone] Candida Epps MD Unavailable Shala Bell RN Unavailable Unavailable Encounter Details Date Type Department Care Team Description 12/30/2019 Medical Correspondence [employer] Scan, BLOOD/PLATELET/PLAS Health Info Mgmt Non-Provider MA ORDER SO [facility] CANCER AND INFUSION [address] [place] [address] Social History Tobacco Use Types Packs/Day [...] on filedocumented in this encounter Care Teams Roller Stitcher Relationship Specialty Start Date End Date No Ref-Primary, PCP - General 09/30/17 Physician Candida Epps MD MD Internal Medicine 01/15/19 420 [facility] [address] [place] [address] Shala Bell RN Specialty Care Hematology & Oncology 01/15/19 07/23/21 Coordinator documented as of this encounter
--- OUTSIDE RECORDS SUMMARY | 2022-05-02 12:14 | XMS_ITS | Encounter Summary ---
:1970 Author Organization [place] Address [address] [place] [address] Care Team Providers Name Role Phone No Ref-Primary, Physician Primary Care Provider [phone] Candida Epps MD Unavailable Shala Bell RN Unavailable Unavailable Encounter Details Date Type Department Care Team Description 01/13/2020 [facility] Dylon Cr Myeloproli ferative Encounter [facility] Laboratory MD Chriss disorder (H) [address] [place] [address] [place], [place] [address] [place] [address] [address] [place], [place] [phone] [address] Social History Tobacco Use Types Packs/Day [...] by mouth 0 bicarbonate-citric acid (VASYL-SELTZER GOLD) [phone] MG TBEF solu-tab documented as of this encounter Plan of Treatment Not on filedocumented as of this encounter Procedures Procedure Name Priority Date/Time Associated Diagnosis Comme nts BLOOD COMPONENT Routine 01/13/2020 4:00 Myeloproliferative Res ults for this PM CDT disorder (H) procedure are i n the results section. BLOOD COMPONENT Routine 01/13/2020 4:00 Myeloproliferative Res ults for this PM CDT disorder (H) procedure are i n the results section. ABO/RH TYPE AND Routine 01/13/2020 4:00 Myeloproliferative Res ults for this SCREEN PM CDT disorder (H) procedure are i n the results section. documented in this encounter Results Blood component (01/13/2020 4:00 PM CDT) [facility] Method Time Signature Unit Number [id number] 01/13/2020 [place] 4:37 PM [facility] Blood Red Blood Cells 01/13/2020 [place] Component LeukoReduced 4:37 PM [facility] Irradiated HOSPITAL Division 00 01/13/2020 [facility] Number 4:37 PM [facility] Status of Released to care 01/14/2020 [place] Unit unit 11:52 PM [facility] Blood Product [id number] 01/13/2020 [facility] Code 4:37 PM [facility] Unit Status ISS [facility] Specimen Anatomical Collection Method Collection Time Receive d Time (Source) Location / / Volume Laterality 01/13/2020 4:00 PM 0 4:02 CDT PM CDT Dylon Cr MD LABORATORY Performing Organization Address City/[facility]/ZIP Code Phon e Number M [facility] [address] [place], [place] [address] [facility] [address] [place], [place] [address], [facility] [phone] Blood component (01/13/2020 4:00 PM CDT) [facility] Method Time Signature Unit Number [id number] 01/13/2020 [facility] 4:37 PM [facility] Blood Red Blood Cells 01/13/2020 [facility] Component LeukoReduced 4:37 PM [facility] Irradiated HOSPITAL Division 00 01/13/2020 [facility] Number 4:37 PM [facility] Status of Released to care 01/14/2020 [place] Unit unit 11:52 PM [facility] Blood Product [id number] 01/13/2020 [facility] Code 4:37 PM [facility] Unit Status ISS [facility] Specimen Anatomical Collection Method Collection Time Receive d Time (Source) Location / / Volume Laterality 01/13/2020 4:00 PM 0 4:02 CDT PM CDT Dylon Cr MD LABORATORY Performing Organization Address [facility]/ZIP Code Phon e Number M [facility] [address] [place], [place] [address] [facility] [address] [place], [place] [address], [facility] [phone] ABO/Rh type and screen (01/13/2020 4:00 PM CDT) [facility] Method Time Signature Units Ordered 2 01/13/2020 [facility] 4:37 PM [facility] ABO A 01/13/2020 [facility] 4:37 PM [facility] RH(D) Pos [facility] Antibody Neg 01/13/2020 [place] Screen 4:37 PM [facility] Test Valid [place] 01/13/2020 [facility] Only At [facility] 4:37 PM [facility] HOSPITAL Specimen 01/16/2020 01/13/2020 [facility] Expires 4:37 PM [facility] Crossmatch Red Blood 01/13/2020 [place] Cells 4:37 PM [facility] Specimen Anatomical Collection Method Collection Time Receive d Time (Source) Location / / Volume Laterality Blood specimen 01/13/2020 4:00 PM 020 4:02 (specimen) CDT PM CDT Dylon Cr MD LAB - BLOOD BANK TEST ORDER Performing Organization Address City/State/ZIP Code Phon e Number M [place] [address] [address] [place] [address] [facility] [address] [phone] documented in this encounter 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
--- OUTSIDE RECORDS SUMMARY | 2022-05-02 12:14 | XMS_ITS | Encounter Summary ---
:1970 Author Organization [place] Address [address] [place] [address] Care Team Providers Name Role Phone No Ref-Primary, Physician Primary Care Provider [phone] Candida Epps MD Unavailable Shala Bell RN Unavailable Unavailable Encounter Details Date Type Department Care Team Description 12/30/2019 Travel Social History Tobacco Use Types Packs/Day [...] on filedocumented in this encounter Care Teams Spray Machine Operator Relationship Specialty Start Date End Date No Ref-Primary, PCP - General 09/30/17 Physician Candida Epps MD MD Internal Medicine 01/15/19 [address] [place] [address] [facility] [address] [place] [address] Shala Bell, HELENE Specialty Care Hematology & Oncology 01/15/19 07/23/21 Coordinator documented as of this encounter
--- OUTSIDE RECORDS SUMMARY | 2022-05-02 12:14 | XMS_ITS | Encounter Summary ---
:1970 Author Organization [place] Address [address] [place] [address] Care Team Providers Name Role Phone No Ref-Primary, Physician Primary Care Provider [phone] Candida Epps MD Unavailable Shala Bell RN Unavailable Unavailable Encounter Details Date Type Department Care Team Description 01/19/2020 Travel Social History Tobacco Use Types Packs/Day [...] on filedocumented in this encounter Care Teams Mobility Engineer Relationship Specialty Start Date End Date No Ref-Primary, PCP - General 09/30/17 Physician Candida Epps MD MD Internal Medicine 01/15/19 [address] [place] [address] [facility] [address] [place] [address] Shala Bell, HELENE Specialty Care Hematology & Oncology 01/15/19 07/23/21 Coordinator documented as of this encounter
--- OUTSIDE RECORDS SUMMARY | 2022-05-02 12:14 | XMS_ITS | Encounter Summary ---
:1970 Author Organization [place] Address [address] [place] [address] Care Team Providers Name Role Phone No Ref-Primary, Physician Primary Care Provider [phone] Candida Epps MD Unavailable Shala Bell RN Unavailable Unavailable Encounter Details Date Type Department Care Team Description 02/14/2020 Travel Social History Tobacco Use Types Packs/Day [...] been in contact with No / Unsure 02/14/2020 12:23 PM CDT someone who was confirmed or suspected to have Coronavirus / COVID-19? documented as of 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 Care Teams Timber Skidder Relationship Specialty Start Date End Date No Ref-Primary, PCP - General 09/30/17 Physician Candida Epps MD MD Internal Medicine 01/15/19 [address] [place] [address] [facility] [address] [place] [address] Shala Bell, HELENE Specialty Care Hematology & Oncology 01/15/19 07/23/21 Coordinator documented as of this encounter
--- OUTSIDE RECORDS SUMMARY | 2022-05-02 12:14 | XMS_ITS | Encounter Summary ---
:1970 Author Organization [place] Address [address] [place] [address] Care Team Providers Name Role Phone No Ref-Primary, Physician Primary Care Provider [phone] Candida Epps MD Unavailable Shala Bell RN Unavailable Unavailable Encounter Details Date Type Department Care Team Description 03/21/2020 Travel Social History Tobacco Use Types Packs/Day [...] on filedocumented in this encounter Care Teams Manufacturing Director Relationship Specialty Start Date End Date No Ref-Primary, PCP - General 09/30/17 Physician Candida Epps MD MD Internal Medicine 01/15/19 [address] [place] [address] [facility] [address] [place] [address] Shala Bell, HELENE Specialty Care Hematology & Oncology 01/15/19 07/23/21 Coordinator documented as of this encounter
--- OUTSIDE RECORDS SUMMARY | 2022-05-02 12:14 | XMS_ITS | Encounter Summary ---
:1970 Author Organization [place] Address [address] [place] [address] Care Team Providers Name Role Phone No Ref-Primary, Physician Primary Care Provider [phone] Candida Epps MD Unavailable Shala Bell RN Unavailable Unavailable Reason for Visit Reason Comments Blood Draw 1 unit PRBC's Encounter Details Date Type Department Care Team Description 02/18/2020 Infusion Therapy [facility] Dylon Cr Myelop roliferative Visit Cancer Center MD Chriss disorder (H) (Primary Dx) [facility] ONCOLOGY [facility] Medical Ctr [address] [facility] [place] [address] [place], [place] [address] [place], [place] [phone] [address] (Work) [phone] Social History Tobacco Use Types Packs/Day Years [...] Sign Reading Time Taken Comments Blood Pressure 132/65 02/18/2020 11:17 AM CDT Pulse 76 02/18/2020 11:17 AM CDT Temperature 37.3 ??C (99.1 ??F) 02/18/2020 11:17 AM CDT Respiratory Rate 16 02/18/2020 11:17 AM CDT Oxygen Saturation 96% 02/18/2020 11:17 AM CDT Inhaled Oxygen Concentration - - Weight - - Height - - Body Mass Index - - documented in this encounter Progress Notes Fatuma Amador, RN - 02/18/2020 8:00 AM CDT Infusion Nursing Note: Jennifer Dobbs presents today for 1 unit PRBC's. Patient seen by provider today: No Planning Feeder present during visit today: Not Applicable. Note: Blood started at 120cc/hr and increased to 200cc/hr after 10 minutes. 50 minutes into blood transfusion patient asked that rate be increased to 270cc/hr. Intravenous Access: PIV placed Treatment Conditions: Blood transfusion consent signed 12/01/2019. Post Infusion Assessment: Patient tolerated infusion without incident. Blood return noted pre and post infusion. Site patent and intact, free from redness, edema or discomfort. No evidence of extravasations. Access discontinued per protocol. Discharge Plan: Discharge instructions reviewed with: Patient. Patient discharged in stable condition accompanied by: self. Departure Mode: Ambulatory. 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
--- OUTSIDE RECORDS SUMMARY | 2022-05-02 12:14 | XMS_ITS | Encounter Summary ---
:1970 Author Organization [place] Address [address] [place] [address] Care Team Providers Name Role Phone No Ref-Primary, Physician Primary Care Provider [phone] Candida Epps MD Unavailable Shala Bell RN Unavailable Unavailable Encounter Details Date Type Department Care Team Description 12/31/2019 Travel Social History Tobacco Use Types Packs/Day [...] on filedocumented in this encounter Care Teams Director Epidemiology Relationship Specialty Start Date End Date No Ref-Primary, PCP - General 09/30/17 Physician Candida Epps MD MD Internal Medicine 01/15/19 [address] [place] [address] [facility] [address] [place] [address] Shala Bell, HELENE Specialty Care Hematology & Oncology 01/15/19 07/23/21 Coordinator documented as of this encounter
--- OUTSIDE RECORDS SUMMARY | 2022-05-02 12:14 | XMS_ITS | Encounter Summary ---
:1970 Author Organization [place] Address [address] [place] [address] Care Team Providers Name Role Phone No Ref-Primary, Physician Primary Care Provider [phone] Candida Epps MD Unavailable Shala Bell RN Unavailable Unavailable Encounter Details Date Type Department Care Team Description 02/17/2020 Travel Social History Tobacco Use Types Packs/Day [...] on filedocumented in this encounter Care Teams Hadoop Application Developer Relationship Specialty Start Date End Date No Ref-Primary, PCP - General 09/30/17 Physician Candida Epps MD MD Internal Medicine 01/15/19 [address] [place] [address] [facility] [address] [place] [address] Shala Bell, HELENE Specialty Care Hematology & Oncology 01/15/19 07/23/21 Coordinator documented as of this encounter
--- OUTSIDE RECORDS SUMMARY | 2022-05-02 12:14 | XMS_ITS | Encounter Summary ---
:1970 Author Organization [place] Address [address] [place] [address] Care Team Providers Name Role Phone No Ref-Primary, Physician Primary Care Provider [phone] Candida Epps MD Unavailable Shala Bell RN Unavailable Unavailable Reason for Visit Reason Comments Blood Draw 1 unit prbc Encounter Details Date Type Department Care Team Description 01/20/2020 Infusion Therapy [facility] Dylon Cr Myelop roliferative Visit Cancer Center MD Chriss disorder (H) (Primary Dx) [facility] ONCOLOGY [facility] Medical Ctr [address] [facility] [place] [address] [place], [place] [address] [place], [place] [phone] [address] (Work) [phone] Social History Tobacco Use Types Packs/Day Years [...] - Respiratory Rate - - Oxygen Saturation 97% 01/20/2020 12:28 PM CDT Inhaled Oxygen Concentration - - Weight - - Height - - Body Mass Index - - documented in this encounter Progress Notes Clemencia Yusuf RN - 01/20/2020 11:30 AM CDT Infusion Nursing Note: Jennifer Dobbs presents today for 1 unit prbc. Patient seen by provider today: No Map Mounter present during visit today: Not Applicable. Note: N/A. Intravenous Access: Peripheral IV placed. Treatment Conditions: Blood transfusion consent signed 12/01/2019 [facility] 6.2 Post Infusion Assessment: Patient tolerated infusion without incident. Blood return noted pre and post infusion. Site patent and intact, free from redness, edema or discomfort. No evidence of extravasations. Access discontinued per protocol. Discharge Plan: Discharge instructions reviewed with: Patient. Patient and/or family verbalized understanding of discharge instructions and all questions answered. Patient discharged in stable condition accompanied by: self. Departure Mode: Ambulatory. Clemencia Yusuf RN documented in this encounter Plan of Treatment Not on filedocumented as of this encounter Procedures Procedure Name Priority Date/Time Associated Diagnosis Comme nts TRANSFUSE RED BLOOD Routine 01/20/2020 12:15 PM Myeloprolifera tive disorder CELL UNIT CDT (H) documented in this encounter Results Transfuse red blood cell unit (01/20/2020 2:09 PM CDT) Dylon Cr MD IP NURSING BLOOD ADMINISTRAT ON Transfuse red blood cell unit (01/20/2020 2:09 PM CDT) Dylon Cr MD IP NURSING BLOOD ADMINISTRAT ON ABO/Rh type and screen (01/19/2020 10:24 AM CDT) [facility] Method Time Signature Units Ordered 1 01/19/2020 [place] 11:29 AM T [facility] ABO A 01/19/2020 [place] 11:28 AM T [facility] RH(D) Pos [facility] Antibody Neg 01/19/2020 [place] Screen 11:28 AM [facility] Test Valid [place] 01/19/2020 [place] Only At [facility] 10:43 AM T [facility] HOSPITAL Specimen 01/22/2020 01/19/2020 [place] Expires 10:43 AM CDT [facility] Crossmatch Red Blood 01/19/2020 [place] Cells 11:29 AM [facility] Specimen Anatomical Collection Method Collection Time Receive d Time (Source) Location / / Volume Laterality Blood specimen 01/19/2020 10:24 0 (specimen) AM [facility] 10:28 AM [facility]T Dylon Cr MD LAB - BLOOD BANK TEST ORDER Performing Organization Address City/State/ZIP Code Phon e Number M [place] [address] [address] [place], [place] [address] [facility] [address] [place], [place] [address] [place] [address] documented in this encounter Visit Diagnoses Diagnosis 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
--- OUTSIDE RECORDS SUMMARY | 2022-05-02 12:14 | XMS_ITS | Encounter Summary ---
:1970 Author Organization [place] Address [address] [place] [address] Care Team Providers Name Role Phone No Ref-Primary, Physician Primary Care Provider [phone] Candida Epps MD Unavailable Shala Bell RN Unavailable Unavailable Encounter Details Date Type Department Care Team Description 01/14/2020 Travel Social History Tobacco Use Types Packs/Day [...] on filedocumented in this encounter Care Teams Architectural Design Lecturer Relationship Specialty Start Date End Date No Ref-Primary, PCP - General 09/30/17 Physician Candida Epps MD MD Internal Medicine 01/15/19 [address] [place] [address] [facility] [address] [place] [address] Shala Bell, HELENE Specialty Care Hematology & Oncology 01/15/19 07/23/21 Coordinator documented as of this encounter
--- OUTSIDE RECORDS SUMMARY | 2022-05-02 12:14 | XMS_ITS | Encounter Summary ---
:1970 Author Organization [place] Address [address] [place] [address] Care Team Providers Name Role Phone No Ref-Primary, Physician Primary Care Provider [phone] Candida Epps MD Unavailable Shala Bell RN Unavailable Unavailable Encounter Details Date Type Department Care Team Description 04/27/2020 [facility] Dylon Cr Myeloproli ferative Encounter [facility] Laboratory MD Chriss disorder (H) [address] [place] [address] [place], [place] [address] [place] [address] [place], [place] [phone] [address] Social History Tobacco Use Types Packs/Day [...] been in contact with No / Unsure 04/27/2020 5:35 PM CDT someone who was confirmed or [...] by mouth 0 bicarbonate-citric acid (VASYL-SELTZER GOLD) [id number] MG TBEF solu-tab documented as of this encounter Plan of Treatment Not on filedocumented as of this encounter Procedures Procedure Name Priority Date/Time Associated Diagnosis Comme nts BLOOD COMPONENT Routine 04/27/2020 5:52 Myeloproliferative Res ults for this PM CDT disorder (H) procedure are i n the results section. ABO/RH TYPE AND Routine 04/27/2020 5:52 Myeloproliferative Res ults for this SCREEN PM CDT disorder (H) procedure are i n the results section. documented in this encounter Results Blood component (04/27/2020 5:52 PM CDT) [facility] Method Time Signature Unit Number [id number] 04/27/2020 [place] 8:30 PM [facility] Blood Red Blood Cells 04/27/2020 [place] Component LeukoReduced 8:30 PM [facility] Irradiated HOSPITAL Division 00 04/27/2020 [facility] Number 8:30 PM [facility] Status of Released to care 04/28/2020 [place] Unit unit 11:52 PM [facility] Blood Product [id number] 04/27/2020 [place] Code 8:30 PM [facility] Unit Status ISS [facility] Specimen Anatomical Collection Method Collection Time Receive d Time (Source) Location / / Volume Laterality 04/27/2020 5:52 PM 0 5:54 CDT PM CDT Dylon Cr MD LABORATORY Performing Organization Address City/State/ZIP Code Phon e Number M [facility] [address] [place], [place] [address] [facility] [address] [place], [place] [address], [facility] [phone] ABO/Rh type and screen (04/27/2020 5:52 PM CDT) [facility] gist Method Time Signature Units Ordered 1 04/27/2020 [place] 7:56 PM CDT [facility] ABO A 04/27/2020 [place] 7:20 PM [facility] RH(D) Pos [facility] Antibody Neg 04/27/2020 [place] Screen 7:20 PM [facility] Test Valid [place] 04/27/2020 [place] Only At [facility] 7:56 PM [facility] Specimen 04/30/2020 04/27/2020 [place] Expires 7:56 PM [facility] Crossmatch Red Blood 04/27/2020 [place] Cells 7:56 PM [facility] Specimen Anatomical Collection Method Collection Time Receive d Time (Source) Location / / Volume Laterality Blood specimen 04/27/2020 5:52 PM 020 5:54 (specimen) CDT PM CDT Dylon Cr MD LAB - BLOOD BANK TEST ORDER Performing Organization Address City/State/ZIP Code Phon e Number M [facility] [address] [place], [place] [address] [facility] [address] [place], [place] [address], [facility] [phone] documented in this encounter 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
--- OUTSIDE RECORDS SUMMARY | 2022-05-02 12:14 | XMS_ITS | Encounter Summary ---
:1970 Author Organization [place] Address [address] [place] [address] Care Team Providers Name Role Phone No Ref-Primary, Physician Primary Care Provider [phone] Candida Epps MD Unavailable Shala Bell RN Unavailable Unavailable Encounter Details Date Type Department Care Team Description 04/27/2020 Travel Social History Tobacco Use Types Packs/Day [...] on filedocumented in this encounter Care Teams Core Microarchitect Relationship Specialty Start Date End Date No Ref-Primary, PCP - General 09/30/17 Physician Candida Epps MD MD Internal Medicine 01/15/19 [address] [place] [address] [facility] [address] [place] [address] Shala Bell, HELENE Specialty Care Hematology & Oncology 01/15/19 07/23/21 Coordinator documented as of this encounter
--- OUTSIDE RECORDS SUMMARY | 2022-05-02 12:15 | XMS_ITS | Encounter Summary ---
:1970 Author Organization [place] Address [address] [place] [address] Care Team Providers Name Role Phone No Ref-Primary, Physician Primary Care Provider [phone] Candida Epps MD Unavailable Shala Bell RN Unavailable Unavailable Encounter Details Date Type Department Care Team Description 11/01/2019 Travel Social History Tobacco Use Types Packs/Day [...] been in contact with No / Unsure 11/01/2019 11:51 AM CDT someone who was confirmed or suspected to have Coronavirus / COVID-19? documented as of 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 Care Teams Bill Collector Relationship Specialty Start Date End Date No Ref-Primary, PCP - General 09/30/17 Physician Candida Epps MD MD Internal Medicine 01/15/19 [address] [place] [address] [facility] [address] [place] [address] Shala Bell, HELENE Specialty Care Hematology & Oncology 01/15/19 07/23/21 Coordinator documented as of this encounter
--- OUTSIDE RECORDS SUMMARY | 2022-05-02 12:15 | XMS_ITS | Encounter Summary ---
:1970 Author Organization [place] Address [address] [place] [address] Care Team Providers Name Role Phone No Ref-Primary, Physician Primary Care Provider [phone] Candida Epps MD Unavailable Shala Bell RN Unavailable Unavailable Encounter Details Date Type Department Care Team Description 08/23/2019 Travel Social History Tobacco Use Types Packs/Day [...] on filedocumented in this encounter Care Teams Die Cast Patternmaker Relationship Specialty Start Date End Date No Ref-Primary, PCP - General 09/30/17 Physician Candida Epps MD MD Internal Medicine 01/15/[address] [place] [address] 480 [place] [address] Shala Bell, HELENE Specialty Care Hematology & Oncology 01/15/19 07/23/21 Coordinator documented as of this encounter
--- OUTSIDE RECORDS SUMMARY | 2022-05-02 12:15 | XMS_ITS | Encounter Summary ---
:1970 Author Organization [place] Address [address] [place] [address] Care Team Providers Name Role Phone No Ref-Primary, Physician Primary Care Provider [phone] Candida Epps MD Unavailable Shala Bell RN Unavailable Unavailable Encounter Details Date Type Department Care Team Description 10/31/2019 Travel Social History Tobacco Use Types Packs/Day [...] been in contact with No / Unsure 10/31/2019 10:57 AM CDT someone who was confirmed or suspected to have Coronavirus / COVID-19? documented as of 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 Care Teams Big Data Software Engineer Relationship Specialty Start Date End Date No Ref-Primary, PCP - General 09/30/17 Physician Candida Epps MD MD Internal Medicine 01/15/19 [address] [place] [address] [facility] [address] [place] [address] Shala Bell, HELENE Specialty Care Hematology & Oncology 01/15/19 07/23/21 Coordinator documented as of this encounter
--- OUTSIDE RECORDS SUMMARY | 2022-05-02 12:15 | XMS_ITS | Encounter Summary ---
:1970 Author Organization [place] Address [address] [place] [address] Care Team Providers Name Role Phone No Ref-Primary, Physician Primary Care Provider [phone] Candida Epps MD Unavailable Shala Bell RN Unavailable Unavailable Reason for Visit Reason Comments Infusion 2 units PRBC Encounter Details Date Type Department Care Team Description 08/25/2019 Infusion Therapy [facility] Dylon Cr Myelop roliferative Visit Cancer Center MD Chriss disorder (H) (Primary Dx) [facility] ONCOLOGY [facility] [address] [facility] [place] [address] [place], [place] [address] [place], [place] [phone] [address] (Work) [phone] Social History Tobacco Use Types Packs/Day Years Used Date Smoking Tobacco: Former Cigarettes Quit : 09/27/2012 Smokeless Tobacco: Never Comments: quit September 27, 2012 Alcohol Use Standard Drinks/Week Comments Yes 0 (1 standard drink = 0.6 oz pure alcoho l) 1 drink per week Sex Assigned at Date Recorded Not on file documented as of this encounter Last Filed Vital Signs Vital Sign Reading Time Taken Comments Blood Pressure 136/72 08/25/2019 12:00 PM FURNITURE UPHOLST[employer] MECHANIC Pulse 74 08/25/2019 12:00 PM FURNITURE UPHOLSTERY MECHANIC Temperature 36.9 ??C (98.5 ??F) 08/25/2019 12:00 PM [employer]PHOLST[employer] MECHANIC Respiratory Rate 16 08/25/2019 12:00 PM [employer]ITURE [employer]PHOLST[employer] MECHANIC Oxygen Saturation 99% 08/25/2019 12:00 PM FURNITURE UPHOLSTERY MECHANIC Inhaled Oxygen Concentration - - Weight - - Height - - Body Mass Index - - documented in this encounter Patient Instructions Patient InstructionsMichelle Potts RN - 08/25/2019 9:00 AM CST Images from the original note were not included. Patient Education After Your Blood Transfusion Discharge Instructions After you leave After a blood transfusion (received red blood cells, platelets, plasma, cryo or granulocytes), you will need to watch for signs of a reaction for the next 48 hours. Call your clinic or 911 (or go to the Emergency room) if you have any signs of a reaction: ?? Shaking or chills ?? Fever (temperature above 100.0 F) ?? Headache ?? Nausea ?? Hives ?? Itching ?? Swelling of the face or feeling flushed ?? Ongoing dry cough (nothing is coughed up) ?? Trouble breathing or wheezing Some signs of a reaction won't show up for a few [id number]. These may include: ?? Fatigue ?? Dizziness ?? [place] or red urine Your clinic is: For informational purposes only. Not to replace the advice of your health care provider. Copyright ?? 2014 [employer]. All rights reserved. Rewarding Return [id number] - Rev 01/26. For informational purposes only. Not to replace the advice of your health care provider. Copyright ?? 2018 [employer]. All rights reserved. ITURE UPHOLSTERY MECHANIC documented in this encounter Progress Notes Michelle Potts RN - 08/25/2019 9:00 AM CST Infusion Nursing Note: Jennifer Dobbs presents today for 2 units PRBC. Patient seen by provider today: No Cooperative Manager present during visit today: Not Applicable. Note: Pt not feeling well today, reports she had a rough night of being sick. Did have some emesis and diarrhea; states this is not new but happens at times because of my sickness. C/O digestive pain in abd; warm pack given with relief. Intravenous Access: Peripheral IV placed. Treatment Conditions: Blood transfusion consent signed 12/14/18. Hgb 6.4 on 08/20 at [facility]. Post Infusion Assessment: Patient tolerated infusion [...] condition accompanied by: . Departure Mode: Ambulatory. Michelle Potts RN ITURE UPHOLSTERY MECHANIC documented in this encounter Plan of Treatment Not on filedocumented as of this encounter Procedures Procedure Name Priority Date/Time Associated Diagnosis Comme nts TRANSFUSE RED BLOOD Routine 08/25/2019 10:45 AM Myeloprolifera tive disorder CELL UNIT FURNITURE UPHOLSTERY MECHANIC (H) TRANSFUSE RED BLOOD Routine 08/25/2019 9:15 AM Myeloproliferat otoniel disorder CELL UNIT FURNITURE UPHOLSTERY MECHANIC (H) documented in this encounter Results Transfuse red blood cell unit (08/25/2019 12:31 PM FURNITURE UPHOLSTERY MECHANIC) Dylon Cr MD IP NURSING BLOOD ADMINISTRAT ON Transfuse red blood cell unit (08/25/2019 12:31 PM FURNITURE UPHOLSTERY MECHANIC) Dylon Cr MD IP NURSING BLOOD ADMINISTRAT ON Transfuse red blood cell unit (08/25/2019 11:03 AM FURNITURE UPHOLSTERY MECHANIC) Dylon Cr MD IP NURSING BLOOD ADMINISTRAT ON ABO/Rh type and screen (08/23/2019 9:48 AM FURNITURE UPHOLSTERY MECHANIC) [facility] Method Time Signature Units Ordered 2 08/23/2019 [facility] 10:39 AM [facility] ABO A 08/23/2019 [place] 10:38 AM [facility] RH(D) Pos [facility] Antibody Neg 08/23/2019 [place] Screen 10:38 AM [facility] Test Valid [place] 08/23/2019 [facility] Only At [facility] 10:39 AM [facility] Specimen 08/26/2019 08/23/2019 [place] Expires 10:39 AM [facility] Crossmatch Red Blood 08/23/2019 [place] Cells 10:39 AM [facility] Specimen Anatomical Collection Method Collection Time Receive d Time (Source) Location / / Volume Laterality Blood specimen 08/23/2019 9:48 AM 020 9:49 (specimen) FURNITURE UPHOLSTERY MECHANIC AM FURNITURE [employer]PHOLSTERY MECHANIC Dylon Cr MD LAB - BLOOD BANK TEST ORDER Performing Organization Address City/State/ZIP Code Phon e Number M [facility] [address] [place], [place] [address] [facility] [address] [phone] documented in this encounter Visit Diagnoses Diagnosis 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
--- OUTSIDE RECORDS SUMMARY | 2022-05-02 12:15 | XMS_ITS | Encounter Summary ---
:1970 Author Organization [place] Address [address] [place] [address] Care Team Providers Name Role Phone No Ref-Primary, Physician Primary Care Provider [phone] Candida Epps MD Unavailable Shala Bell RN Unavailable Unavailable Encounter Details Date Type Department Care Team Description 11/30/2019 [facility] Dylon Cr Myeloproli ferative Encounter [facility] Laboratory MD Chriss disorder (H) [address] [place], [place] [address] [place] [address] [place], [place] [phone] [address] Social History Tobacco Use Types Packs/Day [...] been in contact with No / Unsure 11/30/2019 10:08 AM CDT someone who was confirmed or [...] by mouth 0 bicarbonate-citric acid (VASYL-SELTZER GOLD) [id number] MG TBEF solu-tab documented as of this encounter Plan of Treatment Not on filedocumented as of this encounter Procedures Procedure Name Priority Date/Time Associated Diagnosis Comme nts BLOOD COMPONENT Routine 11/30/2019 10:24 Myeloproliferative Re sults for this AM CDT disorder (H) procedure are i n the results section. ABO/RH TYPE AND Routine 11/30/2019 10:24 Myeloproliferative Re sults for this SCREEN AM CDT disorder (H) procedure are i n the results section. documented in this encounter Results Blood component (11/30/2019 10:24 AM CDT) [facility] Method Time Signature Unit Number [id number] 11/30/2019 [place] 11:05 AM [facility] Blood Red Blood Cells 11/30/2019 [place] Component LeukoReduced 11:05 AM [facility] Irradiated [facility] HOSPITAL Division 00 11/30/2019 [facility] Number 11:05 AM [facility] Status of Released to care 12/01/2019 [place] Unit unit 11:52 PM [facility] Blood Product [id number] 11/30/2019 [facility] Code 11:05 AM [facility] Unit Status ISS [facility] Specimen Anatomical Collection Method Collection Time Receive d Time (Source) Location / / Volume Laterality 11/30/2019 10:24 11/30/2019 AM CDT 10:27 AM CDT Dylon Cr MD LABORATORY Performing Organization Address City/State/ZIP Code Phon e Number M [facility] [address] [place], [place] [address] [facility] [address] [place], [place] [address], [facility] [phone] ABO/Rh type and screen (11/30/2019 10:24 AM CDT) [facility] gist Method Time Signature Units Ordered 1 11/30/2019 [place] 11:05 AM [facility] ABO A 11/30/2019 [place] 11:04 AM [facility] RH(D) Pos [facility] Antibody Neg 11/30/2019 [place] Screen 11:04 AM [facility] Test Valid [place] 11/30/2019 [place] Only At [facility] 11:05 AM [facility] Specimen 12/03/2019 11/30/2019 [place] Expires 11:05 AM [facility] Crossmatch Red Blood 11/30/2019 [place] Cells 11:05 AM [facility] Specimen Anatomical Collection Method Collection Time Receive d Time (Source) Location / / Volume Laterality Blood specimen 11/30/2019 10:24 0 (specimen) AM CDT 10:27 AM CDT Dylon Cr MD LAB - BLOOD BANK TEST ORDER Performing Organization Address City/State/ZIP Code Phon e Number M [facility] [address] [place], [place] [address] [facility] [address] [place], [place] [address], 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
--- OUTSIDE RECORDS SUMMARY | 2022-05-02 12:15 | XMS_ITS | Encounter Summary ---
:1970 Author Organization [place] Address [address] [place] [address] Care Team Providers Name Role Phone No Ref-Primary, Physician Primary Care Provider [phone] Candida Epps MD Unavailable Shala Bell RN Unavailable Unavailable Encounter Details Date Type Department Care Team Description 12/01/2019 Travel Social History Tobacco Use Types Packs/Day [...] been in contact with No / Unsure 12/01/2019 10:21 AM CDT someone who was confirmed or suspected to have Coronavirus / COVID-19? documented as of 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 Care Teams Reel Worker Relationship Specialty Start Date End Date No Ref-Primary, PCP - General 09/30/17 Physician Candida Epps MD MD Internal Medicine 01/15/19 [address] [place] [address] [facility] [address] [place] [address] Shala Bell, HELENE Specialty Care Hematology & Oncology 01/15/19 07/23/21 Coordinator documented as of this encounter
--- OUTSIDE RECORDS SUMMARY | 2022-05-02 12:15 | XMS_ITS | Encounter Summary ---
:1970 Author Organization [place] Address [address] [place] [address] Care Team Providers Name Role Phone No Ref-Primary, Physician Primary Care Provider [phone] Candida Epps MD Unavailable Shala Bell RN Unavailable Unavailable Encounter Details Date Type Department Care Team Description 10/29/2019 Medical Correspondence [facility] Scan, BLOOD/PLATELET/PLAS Health Info Mgmt Non-Provider MA ORDER FO Srvcs [facility] [address] [place] [address] [address] [place] [address] Social History Tobacco Use Types [...] on filedocumented in this encounter Care Teams Shipper Receiver Relationship Specialty Start Date End Date No Ref-Primary, PCP - General 09/30/17 Physician Candida Epps MD MD Internal Medicine 01/15/19 [address] [facility] [address] [place] [address] Shala Bell, HELENE Specialty Care Hematology & Oncology 01/15/19 07/23/21 Coordinator documented as of this encounter
--- OUTSIDE RECORDS SUMMARY | 2022-05-02 12:15 | XMS_ITS | Encounter Summary ---
:1970 Author Organization [facility] Address [address] [place] [address] Care Team Providers Name Role Phone No Ref-Primary, Physician Primary Care Provider [phone] Candida Epps MD Unavailable Shala Bell RN Unavailable Unavailable Reason for Visit Reason Comments Blood Transfusion 1 unit prbc Encounter Details Date Type Department Care Team Description 11/01/2019 Infusion Therapy [facility] Dylon Cr Myelop roliferative Visit [facility] MD Chriss disorder (H) (Primary Dx) [facility]Y [facility] Medical Ctr [address] [facility] [place] [address] [address] [address] [place], [place] [address] [address] [place], [place] [phone] (Work) [phone] Social History Tobacco Use Types Packs/Day Years [...] Sign Reading Time Taken Comments Blood Pressure 123/75 11/01/2019 1:48 PM CDT Pulse 77 11/01/2019 1:48 PM CDT Temperature 36.9 ??C (98.5 ??F) 11/01/2019 1:48 PM CDT Respiratory Rate 16 11/01/2019 1:48 PM CDT Oxygen Saturation 99% 11/01/2019 1:48 PM CDT Inhaled Oxygen Concentration - - Weight - - Height - - Body Mass Index - - documented in this encounter Progress Notes Bre Mosher, RN - 11/01/2019 12:00 PM CDT Infusion Nursing Note: Jennifer Dobbs presents today for 1 unit PRBC. Patient seen by provider today: No Office Machine Installer present during visit today: Not Applicable. Note: NA. Intravenous Access: Peripheral IV placed. Treatment Conditions: Blood transfusion consent signed 07/16/2019. HGB 6.2 on 10/28 Post Infusion Assessment: Patient tolerated infusion without incident. Blood return noted pre and post infusion. Site patent and intact, free from redness, edema or discomfort. No evidence of extravasations. Access discontinued per protocol. Discharge Plan: Patient discharged in stable condition accompanied by: self. Departure Mode: Ambulatory. 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
--- OUTSIDE RECORDS SUMMARY | 2022-05-02 12:15 | XMS_ITS | Encounter Summary ---
:1970 Author Organization [facility] Address [address] [place] [address] Care Team Providers Name Role Phone No Ref-Primary, Physician Primary Care Provider Candida Epps MD Unavailable Shala Bell RN Unavailable Unavailable Encounter Details Date Type Department Care Team Description 08/23/2019 [facility] Dylon Cr Myeloproli ferative Encounter [facility] MD Chriss disorder (H) [address] [place] [address] [place] [address] [address] [place], [place] [phone] [address] Social History Tobacco Use Types Packs/Day Years Used Date Smoking Tobacco: Former Cigarettes Quit : 09/27/2012 Smokeless Tobacco: Never Comments: quit September 27, 2012 Alcohol Use Standard Drinks/Week Comments Yes 0 (1 standard drink = 0.6 oz pure alcoho l) 1 drink per week Sex Assigned at Date Recorded Not on file documented as of this encounter Medications at [...] PO Take 60 mg by mouth 0 2 times daily (Takes 15 mg extra BID if not working) oxyCODONE (ROXICODONE) 5 Take 1-2 tablets 30 tablet 0 08/28 MG immediate release (5-10 mg) by mouth tablet every 6 hours as needed for moderate to severe pain senna-docusate Take 1 tablet by 60 tablet 1 08/28/2015 (SENOKOT-S;PERICOLACE) mouth 2 times daily 8.6-50 MG per tablet Sodium Bicarbonate-Citric Take 1 tablet by 0 Acid (VASYL-SELTZER mouth [place] PO) sodium-potassium Take 1 tablet by 0 bicarbonate-citric acid mouth (VASYL-SELTZER GOLD) [id number] MG TBEF solu-tab haemophilus B Inject 0.5 mLs into 15 mL 6 07/29/2019 conj-meningoccal (PEDVAX the muscle once for HIB) 7.5 MCG/0.5 ML 1 dose Inject 0.5 injectionIndications: mLs into the muscle Splenomegaly once documented as of this encounter Plan of Treatment Not on filedocumented as of this encounter Procedures Procedure Name Priority Date/Time Associated Diagnosis Comme nts BLOOD COMPONENT Routine 08/23/2019 9:48 Myeloproliferative Res ults for this AM ARBITRATOR disorder (H) procedure are i n the results section. BLOOD COMPONENT Routine 08/23/2019 9:48 Myeloproliferative Res ults for this AM ARBITRATOR disorder (H) procedure are i n the results section. ABO/RH TYPE AND Routine 08/23/2019 9:48 Myeloproliferative Res ults for this SCREEN AM ARBITRATOR disorder (H) procedure are i n the results section. documented in this encounter Results Blood component (08/23/2019 9:48 AM ARBITRATOR) [facility] Method Time Signature Unit Number [id number] 08/23/2019 [facility] 10:41 AM [facility] Blood Red Blood Cells 08/23/2019 [facility] Component LeukoReduced 10:41 AM [facility] Type Irradiated [facility] Division 00 08/23/2019 [facility] Number 10:41 AM [facility] Status of Released to care 08/25/2019 [place] Unit unit 11:52 PM [facility] Blood Product [id number] 08/23/2019 [facility] Code 10:41 AM [facility] Unit Status ISS [facility] Specimen Anatomical Collection Method Collection Time Receive d Time (Source) Location / / Volume Laterality 08/23/2019 9:48 AM 0 9:49 ARBITRATOR AM ARBITRATOR Dylon Cr MD LABORATORY Performing Organization Address City/[facility]/ZIP Code Phon e Number M [facility] [address] [place], [place] [address] [facility] [address] [place], [place] [address], [facility] [phone] Blood component (08/23/2019 9:48 AM ARBITRATOR) [facility] Method Time Signature Unit Number [id number] 08/23/2019 [facility] 10:41 AM [facility] Blood Red Blood Cells 08/23/2019 [facility] Component LeukoReduced 10:41 AM [facility] Irradiated [facility] Division 00 08/23/2019 [facility] Number 10:41 AM [facility] Status of Released to care 08/25/2019 [facility] Unit unit 11:52 PM [facility] Blood Product [id number] 08/23/2019 [facility] Code 10:41 AM [facility] Unit Status ISS [facility] Specimen Anatomical Collection Method Collection Time Receive d Time (Source) Location / / Volume Laterality 08/23/2019 9:48 AM 0 9:49 ARBITRATOR AM ARBITRATOR Dylon Cr MD LABORATORY Performing Organization Address City/[facility]/ZIP Code Phon e Number M [facility] [address] [place], [place] [address] [facility] [address] [place], [place] [address], [facility] [phone] ABO/Rh type and screen (08/23/2019 9:48 AM ARBITRATOR) [facility] Method Time Signature Units Ordered 2 08/23/2019 [facility] 10:39 AM [facility] ABO A 08/23/2019 [facility] 10:38 AM [facility] RH(D) Pos [facility] Antibody Neg 08/23/2019 [facility] Screen 10:38 AM [facility] Test Valid [place] 08/23/2019 [facility] Only At [facility] 10:39 AM [facility] Specimen 08/26/2019 08/23/2019 [facility] Expires 10:39 AM [facility] Crossmatch Red Blood 08/23/2019 [place] Cells 10:39 AM ARBITRATOR [facility] Specimen Anatomical Collection Method Collection Time Receive d Time (Source) Location / / Volume Laterality Blood specimen 08/23/2019 9:48 AM 020 9:49 (specimen) ARBITRATOR AM ARBITRATOR Dylon Cr MD LAB - BLOOD BANK TEST ORDER Performing Organization Address City/State/ZIP Code Phon e Number M [place] [address] [place] [address] [facility] [address] [phone] documented in this encounter 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
--- OUTSIDE RECORDS SUMMARY | 2022-05-02 12:15 | XMS_ITS | Encounter Summary ---
:1970 Author Organization [facility] Address [address] [place] [address] Care Team Providers Name Role Phone No Ref-Primary, Physician Primary Care Provider [phone] Candida Epps MD Unavailable Shala Bell RN Unavailable Unavailable Encounter Details Date Type Department Care Team Description 11/30/2019 Travel Social History Tobacco Use Types Packs/Day [...] on filedocumented in this encounter Care Teams Precision Honer Relationship Specialty Start Date End Date No Ref-Primary, PCP - General 09/30/17 Physician Candida Epps MD MD Internal Medicine 01/15/19 [address] [facility] [address] [place] [address] Sahla Bell, HELENE Specialty Care Hematology & Oncology 01/15/19 07/23/21 Coordinator documented as of this encounter
--- OUTSIDE RECORDS SUMMARY | 2022-05-02 12:15 | XMS_ITS | Encounter Summary ---
:1970 Author Organization [facility] Address [address] [facility] [place] [address] Care Team Providers Name Role Phone No Ref-Primary, Physician Primary Care Provider [phone] Candida Epps MD Unavailable Shala Bell RN Unavailable Unavailable Encounter Details Date Type Department Care Team Description 08/20/2019 [facility] Scan, BLOOD/PLATELET/PLAS Health Info Mgmt Non-Provider [place] ORDER FO [facility] [address] [place] [address] Social History Tobacco Use Types Packs/Day [...] filedocumented in this encounter Care Teams Manager Clinical Applications Relationship Specialty Start Date End Date No Ref-Primary, PCP - General 09/30/17 Physician Candida Epps MD MD Internal Medicine 01/15/19 [address] [facility] [address] [place] [address] Shala Bell, RN Specialty Care Hematology & Oncology 01/15/19 07/23/21 Coordinator documented as of this encounter
--- OUTSIDE RECORDS SUMMARY | 2022-05-02 12:15 | XMS_ITS | Encounter Summary ---
:1970 Author Organization [facility] Address [address] [place] [address] Care Team Providers Name Role Phone No Ref-Primary, Physician Primary Care Provider [phone] Candida Epps MD Unavailable Shala Bell RN Unavailable Unavailable Encounter Details Date Type Department Care Team Description 08/25/2019 Travel Social History Tobacco Use Types Packs/Day [...] on filedocumented in this encounter Care Teams Inspector Barrel Relationship Specialty Start Date End Date No Ref-Primary, PCP - General 09/30/17 Physician Candida Epps MD MD Internal Medicine 01/15/[address] [place] [address] [address] [place] [address] Shala Bell, HELENE Specialty Care Hematology & Oncology 01/15/19 07/23/21 Coordinator documented as of this encounter
--- OUTSIDE RECORDS SUMMARY | 2022-05-02 12:15 | XMS_ITS | Encounter Summary ---
:1970 Author Organization [facility] Address [address] [place] [address] Care Team Providers Name Role Phone No Ref-Primary, Physician Primary Care Provider [phone] Candida Epps MD Unavailable Shala Bell RN Unavailable Unavailable Encounter Details Date Type Department Care Team Description 10/31/[address] [facility] Dora Prado MD [address] [place], [place] [id number] [facility] Dylon Sánchez MD [facility] [facility] [address] [place] [address] [place] [address] Dory Shaffer MD [facility] [address] [place] [address] [place] [address] [place] [address] Social History Tobacco Use Types Packs/Day Years [...] by 0 bicarbonate-citric acid mouth (VASYL-SELTZER GOLD) [phone] MG TBEF solu-tab haemophilus B Inject 0.5 mLs into 15 mL 6 07/29/2019 conj-meningoccal (PEDVAX the muscle once for HIB) 7.5 MCG/0.5 ML 1 dose Inject 0.5 injectionIndications: mLs into the muscle Splenomegaly once documented as of this encounter Plan of Treatment Not on filedocumented as of this encounter Procedures Procedure Name Priority Date/Time Associated Diagnosis Comme nts BLOOD COMPONENT Routine 10/31/2019 11:10 AM Resul ts for this CDT procedure are i n the results section. ABO/RH TYPE AND Routine 10/31/2019 11:10 AM Resul ts for this SCREEN CDT procedure are i n the results section. documented in this encounter Results Blood component (10/31/2019 11:10 AM CDT) [facility] Method Time Signature Unit Number [id number] 10/31/2019 [facility] 12:59 PM [facility] Blood Red Blood Cells 10/31/2019 [facility] Component LeukoReduced 12:59 PM [facility] Irradiated [facility] Division 00 10/31/2019 [place] Number 12:59 PM [facility] Status of Released to care 11/01/2019 [place] Unit unit 11:52 PM [facility] Blood Product [id number] 10/31/2019 [facility] Code 12:59 PM [facility] Unit Status ISS [facility] Specimen Anatomical Collection Method Collection Time Receive d Time (Source) Location / / Volume Laterality 10/31/2019 11:10 10/31/2019 AM CDT 12:12 PM CDT Dory Shaffer MD LABORATORY Performing Organization Address City/[facility]/ZIP Code Phon e Number M [facility] [address] [place], [place] [address] [facility] [address] [place] [address], [facility] [phone] ABO/Rh type and screen (10/31/2019 11:10 AM CDT) [facility] Method Time Signature Units Ordered 1 10/31/2019 [place] 12:59 PM [facility] ABO A 10/31/2019 [place] 12:58 PM [facility] RH(D) Pos [facility] Antibody Neg 10/31/2019 [place] Screen 12:58 PM [facility] Test Valid [place] 10/31/2019 [facility] Only At [facility] 12:59 PM [facility] Specimen 11/03/2019 10/31/2019 [place] Expires 12:59 PM [facility] Crossmatch Red Blood 10/31/2019 [place] Cells 12:59 PM [facility] Specimen Anatomical Collection Method Collection Time Receive d Time (Source) Location / / Volume Laterality Blood specimen 10/31/2019 11:10 0 (specimen) AM CDT 12:12 PM CDT Dory Shaffer MD LAB - BLOOD BANK TEST ORDER Performing Organization Address [facility] Phon e Number M [facility] [address] [place], [place] [address] [facility] [address] [place], [place] [address], [facility] [phone] documented in this encounter Visit Diagnoses Not on filedocumented in this encounter Care Teams Drill Operator Automatic Relationship Specialty Start Date End Date No Ref-Primary, PCP - General 09/30/17 Physician Candida Epps MD MD Internal Medicine 01/15/[address] [place] [address] Shala Bell, HELENE Specialty Care Hematology & Oncology 01/15/19 07/23/21 Coordinator documented as of this encounter
--- OUTSIDE RECORDS SUMMARY | 2022-05-02 12:15 | XMS_ITS | Encounter Summary ---
:1970 Author Organization [address] [address] Care Team Providers Name Role Phone No Ref-Primary, Physician Primary Care Provider [phone] Candida Epps MD Unavailable Shala Bell RN Unavailable Unavailable Encounter Details Date Type Department Care Team Description 10/31/2019 Orders Only [facility] Dory Shaffer, Myeloproli ferative disorder Services - Cancer (H) (Primary Dx) Care Service Line [address] ONCOLOGY [address] [address] [place] [address] [place], [place] [id number] Social History Tobacco Use Types Packs/Day Years [...] Type Priority Associated Diagnoses Order S chedule ABO/Rh type and Blood Bank Routine Myeloproliferative disord er Ordered: 10/31/2019 screen (H) documented as of this encounter Visit Diagnoses Diagnosis 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
--- OUTSIDE RECORDS SUMMARY | 2022-05-02 12:16 | XMS_ITS | Encounter Summary ---
:1970 Author Organization [facility] Address [address] [place] [address] Care Team Providers Name Role Phone No Ref-Primary, Physician Primary Care Provider [phone] Candida Epps MD Unavailable Shala Bell RN Unavailable Unavailable Reason for Visit Reason Comments Generalized Weakness Encounter Details Date Type Department Care Team Description 07/16/[address] [facility] [place], Mary Ann Anemia , unspecified [facility] MD Jennifer type [address] [facility], [place] [address] 5433 [facility] [phone] [place], [place] [address] (Wo rk) Social History Tobacco Use Types [...] Sign Reading Time Taken Comments Blood Pressure 119/58 07/16/2019 2:15 PM [facility] Pulse 80 07/16/2019 2:15 PM [facility] Temperature 36.7 ??C (98.1 ??F) 07/16/2019 1:33 PM [facility] Respiratory Rate 18 07/16/2019 2:20 PM [facility] Oxygen Saturation 98% 07/16/2019 2:30 PM [facility] Inhaled Oxygen Concentration - - Weight 88.5 kg (195 lb) 07/16/2019 9:59 AM [facility] Height - - Body Mass Index 30.75 07/05/2019 2:20 PM [facility] INFORMATION [facility]NAGERS documented in this encounter Discharge Instructions Discharge InstructionsMary Ann Hobson MD - 07/16/2019 1:37 PM [facility] INFORMATION MANAGERS Return immediately for worsening or recurrent symptoms TH INFORMATION MANAGERS documented in this encounter Medications at Time [...] by mouth 0 Acid (VASYL-SELTZER HEARTBURN PO) documented as of this encounter ED Notes Sonia Carbajal RN - 07/16/2019 2:38 PM CST PIV removed, VSS, Pt verbalized understanding of discharge instructions and ambulated to lobby with steady gait. [facility] INFORMATION MANAGERS Sonia Carbajal RN - 07/16/2019 9:58 AM CST Pt was at oncology clinic this morning, hemoglobin was 4.9 and has received transfusions in the past for this, I am SOB and weak. VSS and ABC's intact. TH INFORMATION MANAGERS Mary Ann Hobson MD - 07/16/2019 9:52 AM CST History Chief Complaint: Generalized Weakness HPI Jennifer Dobbs is a 49 year old female with a history of hypertension, anemia, Myeloproliferative disorder who presents with generalized weakness. The patient reports that this morning she was seen at her oncology clinic for feeling generally weak where she was found to have a hemoglobin of 4.9. The patient states that she has had blood transfusion in the past for this and they try to keep her hemoglobin level above 7. She usually goes to the [facility] for this, however, there were not any opening available today therefore her oncologist sent her to the emergency department for a transfusion. The patient denies fever or new vomiting or diarrhea. Allergies: Latex Medications: Lorazepam Morphine Sulfate Senokot-S;Pericolace Vasyl-[place] Oxycodone Past Medical History: Myelofibrosis Myeloproliferative disorder Hypertension Obesity Plantar fascitis Anemia Past Surgical History: Bone marrow biopsy Tonsillectomy Myringotomies Family History: Family history reviewed. No pertinent family history. Social History: The patient was accompanied to the ED by . Smoking Status: Former Smoker Smokeless Tobacco: Never Used Alcohol Use: Positive Drug Use: Positive Types: Marijuana PCP: No Ref-Primary, Physician Marital Status: Review of Systems Constitutional: Negative for fever. Gastrointestinal: Negative for diarrhea and vomiting. Neurological: Positive for weakness. All other systems reviewed and are negative. Physical Exam Patient Vitals for the past 24 hrs: BP Temp Temp src Pulse Heart Rate Resp SpO2 Weight 07/16/19 1430 -- -- -- -- -- -- 98 % -- 07/16/19 1420 -- -- -- -- 80 18 95 % -- 07/16/19 1415 119/58 -- -- 80 81 20 97 % -- 07/16/19 1410 -- -- -- -- 80 20 95 % -- 07/16/19 1405 -- -- -- -- 81 18 95 % -- 07/16/19 1400 117/59 -- -- 81 81 17 97 % -- 07/16/19 1355 -- -- -- -- 81 19 97 % -- 07/16/19 1350 -- -- -- -- 80 17 96 % -- 07/16/19 1345 129/79 -- -- 83 84 21 97 % -- 07/16/19 1333 -- 98.1 ??F (36.7 ??C) Oral -- -- 20 -- -- 07/16/19 1330 118/73 98.1 ??F (36.7 ??C) Oral 83 82 22 96 % -- 07/16/19 1325 118/73 97.7 ??F (36.5 ??C) Oral -- 83 15 96 % -- 07/16/19 1320 115/59 98.1 ??F (36.7 ??C) Oral 84 82 16 94 % -- 07/16/19 1315 134/65 -- -- 85 82 -- 98 % -- 07/16/19 1245 134/72 -- -- 86 86 -- 97 % -- 07/16/19 1244 -- 97.8 ??F (36.6 ??C) Oral -- -- -- -- -- 07/16/19 1230 128/68 -- -- 82 83 15 98 % -- 07/16/19 1226 -- 98.8 ??F (37.1 ??C) Oral -- -- -- -- -- 07/16/19 1215 131/62 -- -- 86 85 9 96 % -- 07/16/19 1200 122/53 98.4 ??F (36.9 ??C) Oral 83 83 18 94 % -- 07/16/19 1145 127/58 98.5 ??F (36.9 ??C) -- 84 85 18 93 % -- 07/16/19 1130 115/70 -- -- 86 86 18 92 % -- 07/16/19 1115 123/65 -- -- 84 87 20 94 % -- 07/16/19 1045 131/64 -- -- 86 87 13 94 % -- 07/16/19 1030 126/52 -- -- 88 87 18 96 % -- 07/16/19 1015 (!) 123/98 -- -- 88 87 -- 97 % -- 07/16/19 1000 130/75 -- -- 87 86 14 97 % -- 07/16/19 0959 116/82 99 ??F (37.2 ??C) Oral -- 90 16 95 % 88.5 kg (195 lb) Physical Exam Eyes: Sclera white; Pupils are equal and round ENT: External ears and nares normal; conjunctiva pale CV: Rate as above with regular rhythm Resp: Breath sounds clear and equal bilaterally Non-labored, no retractions or accessory muscle use GI: Abdomen is soft, LUQ mass into midline (splenomegaly) No rebound tenderness or peritoneal features MS: Moves all extremities Skin: Warm and dry Neuro: Speech is normal and fluent. No apparent deficit. Emergency Department Course Laboratory: Laboratory findings were communicated with the patient who voiced understanding of the findings. CBC: WBC 3.4 (L), HGB 4.5 (LL), PLT 93 (L) ABO/Rh type and screen: A Positive antibody negative Blood Component x2: Ordered Emergency Department Course: 1008 IV was inserted and blood was drawn for laboratory testing, results above. 1012 Nursing notes and vitals reviewed. I performed an exam of the patient as documented above. 1430 Prior to discharge, I personally reviewed the results with the patient and all related questions were answered. The patient verbalized understanding and is amenable to plan. Impression & Plan Medical Decision Making: Jennifer Dobbs is a 49 year old female who presents to the emergency department today for evaluationof recurrent anemia in need of a transfusion. No sources of acute blood loss. 2 units were transfused after which she was feeling better and she was discharged with plan for follow-up in her clinic. Diagnosis: ICD-10-CM 1. Anemia, unspecified type D64.9 Disposition: The patient is discharged to home. Discharge Medications: No discharge medications. Scribe Disclosure: Sue Peters, am serving as a scribe at 10:15 AM on 07/16/2019 to document services personally performed by Mary Ann Hobson MD based on my observations and the provider's statements to me. [facility] EMERGENCY DEPARTMENT Mary Ann Hobson MD 07/16/19 1524 [facility] documented in this encounter Plan of Treatment Not on filedocumented as of this encounter Procedures Procedure Name Priority Date/Time Associated Diagnosis Comme nts TRANSFUSE RED BLOOD STAT 07/16/2019 1:20 PM [facility]IT [facility] TRANSFUSE RED BLOOD STAT 07/16/2019 11:45 AM [facility] CBC WITH PLATELETS STAT 07/16/2019 10:08 AM Re sults for this [facility] procedure are i n the results section. BLOOD COMPONENT Routine 07/16/2019 10:07 AM Anemia, unspecifie d Results for this [facility] type procedure are i n the results section. BLOOD COMPONENT Routine 07/16/2019 10:07 AM Anemia, unspecifie d Results for this [facility] type procedure are i n the results section. ABO/RH TYPE AND STAT 07/16/2019 10:07 AM Resul ts for this SCREEN [facility] procedure are i n the results section. documented in this encounter Results Transfuse red blood cell unit (07/16/2019 2:33 PM [facility]) Mary Ann Hobson MD IP NURSING BLOOD ADMINISTRAT ON Transfuse red blood cell unit (07/16/2019 2:33 PM [facility]) Mary Ann Hobson MD IP NURSING BLOOD ADMINISTRAT ON Transfuse red blood cell unit (07/16/2019 1:20 PM [facility]) Mary Ann Hobson MD IP NURSING BLOOD ADMINISTRAT ON (ABNORMAL) CBC (platelets, no diff) (07/16/2019 10:08 AM [facility]) P athologist Signature WBC 3.4 (L) 4.0 - 11.0 07/16/[address] [facility] 10e9/L 10:[address] [facility] RBC Count 1.76 (L) 3.8 - 5.2 07/16/2019 [facility] 10e12/L 10:[address] [facility] Hemoglobin 4.5 (LL) 11.7 - 15.7 07/16/[address] [facility] g/dL 10:[address] [facility] Comment: This result has been called to BRITTNEE MATHUR(SHEA) by Domenic Alvarado on 07 16 2019 at 1053, and has been read back. Hematocrit 15.8 (L) 35.0 - 47.0 % 07/16/2019 10:54 AM [facility] MCV 90 78 - 100 fl 07/16/2019 10:54 AM [facility] MCH 25.6 (L) 26.5 - 33.0 pg 07/16/2019 10:54 AM [facility] MCHC 28.5 (L) 31.5 - 36.5 g/dL 07/16/2019 10:54 AM [facility] RDW 29.1 (H) 10.0 - 15.0 % 07/16/2019 10:54 AM [facility] Platelet Count 93 (L) 150 - 450 10e9/L 07/16/2019 10:54 A M [facility] Specimen Anatomical Collection Method Collection Time Receive d Time (Source) Location / / Volume Laterality Blood specimen 07/16/2019 10:08 0 (specimen) AM [facility] 10:26 AM [facility] Mary Ann Hobson MD LAB - BLOOD ORDERABLES Performing Organization Address City/[facility]/ZIP Code Phon e Number [facility] [address] [place], [place] [address] [facility] [address] [place], [place] [address], [facility] [phone] Blood component (07/16/2019 10:07 AM [facility]) [facility] gist Method Time Signature Unit Number [id number] 07/16/2019 [facility] 11:39 AM [facility] Blood Red Blood Cells 07/16/2019 [facility] Component LeukoReduced 11:39 AM [facility] Irradiated [facility] Division 00 07/16/2019 [facility] Number 11:39 AM [facility] Status of Released to care 07/16/2019 [facility] Unit unit 11:52 PM [facility] Blood Product [id number] 07/16/2019 [facility] Code 11:39 AM [facility] Unit Status ISS [facility] Specimen Anatomical Collection Method Collection Time Receive d Time (Source) Location / / Volume Laterality 07/16/2019 10:07 07/16/2019 AM [facility] 10:27 AM [facility] Mary Ann Hobson MD LABORATORY Performing Organization Address [facility] Phon e Number [facility] [address] [place], [place] [address] [facility] [address] [place], [place] [address] [facility] [phone] Blood component (07/16/2019 10:07 AM [facility]) [facility] Method Time Signature Unit Number [id number] 07/16/2019 [facility] 11:39 AM [facility] Blood Red Blood Cells 07/16/2019 [facility] Component LeukoReduced 11:39 AM [facility] Type Irradiated [facility] Division 00 07/16/2019 [facility] Number 11:39 AM [facility] Status of Released to care 07/16/2019 [facility] Unit unit 11:52 PM [facility] Blood Product [id number] 07/16/2019 [facility] Code 11:39 AM [facility] Unit Status ISS [facility] Specimen Anatomical Collection Method Collection Time Receive d Time (Source) Location / / Volume Laterality 07/16/2019 10:07 07/16/2019 AM [facility] 10:27 AM [facility] Mary Ann Hobson MD LABORATORY Performing Organization Address City/State/ZIP Code Phon e Number [place] [address] [address] [facility] [address] [place] [address], [facility] [phone] ABO/Rh type and screen (07/16/2019 10:07 AM [facility]) [facility] Signature Units Ordered 2 07/16/2019 [facility] 11:11 AM [facility] ABO A 07/16/2019 [facility] 11:02 AM [facility] RH(D) Pos [facility] Antibody Neg 07/16/2019 [facility] Screen 11:02 AM [facility] Test Valid [facility] 07/16/2019 [facility] Only At Hospital 10:35 AM [facility] Specimen 07/19/2019 07/16/2019 [facility] Expires 10:35 AM [facility] Crossmatch Red Blood Cells 07/16/2019 [facility] 11:11 AM [facility] Blood Bank Delay in availability of Red Blood Cells called to 07/16/2019 [facility] Comment ANURADHA CARBAJAL (ERA) 1.3.20 @1025 BY Marycruz 10:35 AM [facility] Specimen Anatomical Collection Method Collection Time Receive d Time (Source) Location / / Volume Laterality Blood specimen 07/16/2019 10:07 0 (specimen) AM [facility] 10:27 AM [facility] Mary Ann Hobson MD LAB - BLOOD BANK TEST ORDER Performing Organization Address City/State/ZIP Code Phon e Number M [facility] [address] [place], [place] [address] [facility] [address] [place], [place] [address] [place] [address] documented in this encounter Visit Diagnoses Diagnosis Anemia, unspecified type documented in this encounter Care Teams Correctional Nurse Relationship Specialty Start Date End Date No Ref-Primary, PCP - General 09/30/17 Physician Candida Epps MD MD Internal Medicine 01/15/[address] [place] [address] Shala Bell RN Specialty Care Hematology & Oncology 01/15/19 07/23/21 Coordinator documented as of this encounter
--- OUTSIDE RECORDS SUMMARY | 2022-05-02 12:16 | XMS_ITS | Encounter Summary ---
:1970 Author Organization [facility] Address [address] [place] [address] Care Team Providers Name Role Phone No Ref-Primary, Physician Primary Care Provider [phone] Candida Epps MD Unavailable Shala Bell RN Unavailable Unavailable Reason for Visit Reason Comments Sleep Problem Encounter Details Date Type Department Care Team Description 07/02/2019 Office Visit [facility] Sleep Dist urbance, sleep (Primary Dx); [facility] Hypoxemia [address] [place] [address] Social History Tobacco Use Types Packs/Day Years Used Date Smoking Tobacco: Former Cigarettes Quit : 09/27/2012 Smokeless Tobacco: Never Comments: quit September 27, 2012 Alcohol Use Standard Drinks/Week Comments Yes 0 (1 standard drink = 0.6 oz pure alcoho l) 1 drink per week Sex Assigned at Date Recorded Not on file documented as of this encounter Progress Notes Jaz Lazo - 07/02/2019 4:00 PM CST Patient picked up oximeter and was instructed on use. They showed understanding by demonstrating it back. CIPAL PROCESS ENGINEER documented in this encounter Miscellaneous Notes Addendum Note - Jaz Lazo - 07/02/2019 4:00 PM PRINCIPAL PROCESS ENGINEER Addended by: JAZ LAZO on: 09/06/2019 04:34 PM Modules accepted: Orders CIPAL PROCESS ENGINEER documented in this encounter Plan of Treatment Not on filedocumented as of this encounter Procedures Procedure Name Priority Date/Time Associated Diagnosis Comme nts OVERNIGHT OXIMETRY STUDY Routine 09/06/2019 Hypoxemia documented in this encounter Results Overnight oximetry study (09/06/2019) Narrative This result has an attachment that is no t available. Rodrick Turner MD IP RESPIRATORY CARE documented in this encounter Visit Diagnoses Diagnosis Disturbance, sleep - Primary Sleep disturbance, unspecified Hypoxemia documented in this encounter Care Teams Automation Engineering Technician Relationship Specialty Start Date End Date No Ref-Primary, PCP - General 09/30/17 Physician Candida Epps MD MD Internal Medicine 01/15/[address] [place] [address] Shala Bell, HELENE Specialty Care Hematology & Oncology 01/15/19 07/23/21 Coordinator documented as of this encounter
--- OUTSIDE RECORDS SUMMARY | 2022-05-02 12:16 | XMS_ITS | Encounter Summary ---
:1970 Author Organization [facility] Address [address] [place] [address] Care Team Providers Name Role Phone No Ref-Primary, Physician Primary Care Provider [phone] Candida Epps MD Unavailable Shala Bell RN Unavailable Unavailable Encounter Details Date Type Department Care Team Description 07/20/2019 Travel Social History Tobacco Use Types Packs/Day [...] on filedocumented in this encounter Care Teams Shirring Machine Operator Relationship Specialty Start Date End Date No Ref-Primary, PCP - General 09/30/17 Physician Candida Epps MD MD Internal Medicine 01/15/[address] [place] [address] [address] [place] [address] Shala Bell, HELENE Specialty Care Hematology & Oncology 01/15/19 07/23/21 Coordinator documented as of this encounter
--- OUTSIDE RECORDS SUMMARY | 2022-05-02 12:16 | XMS_ITS | Encounter Summary ---
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 [facility] MD Chriss disease (Primary Dx) [address] [place] [facility] [place], [place] [address] [address] [address] [place] [address] Social History Tobacco Use Types Packs/Day [...] Sig Dispensed Refills Start Date End Date ibuprofen (ADVIL/MOTRIN) Take 200 mg by mouth [...] HEARTBURN PO) documented as of this encounter Plan of Treatment Not on filedocumented as of this encounter Procedures Procedure Name Priority Date/Time Associated Diagnosis Comme nts BLOOD COMPONENT Routine 06/28/2019 4:29 PM Anemia in neoplasti c Results for this CLAM TREADER disease procedure are i n the results section. BLOOD COMPONENT Routine 06/28/2019 4:29 PM Anemia in neoplasti c Results for this CLAM TREADER disease procedure are i n the results section. ABO/RH TYPE AND Routine 06/28/2019 4:29 PM Anemia in neoplasti c Results for this SCREEN CLAM TREADER disease procedure are i n the results section. documented in this encounter Results Blood component (06/28/2019 4:29 PM CLAM TREADER) Nascent Surgical Method Time Signature Unit Number [id number] 06/29/2019 [facility] 10:11 AM [facility] Blood Red Blood Cells 06/29/2019 [facility] Component LeukoReduced 10:11 AM [facility] Type Irradiated [facility] Division 00 06/29/2019 [facility] Number 10:11 AM [facility] Status of Released to care 06/29/2019 [facility] Unit unit 11:52 PM [facility] Blood Product [id number] 06/29/2019 [facility] Code 10:11 AM [facility] Unit Status ISS [facility] Specimen Anatomical Collection Method Collection Time Receive d Time (Source) Location / / Volume Laterality 06/28/2019 4:29 PM 9 4:30 CLAM TREADER PM CLAM TREADER Dylon Cr MD LABORATORY Performing Organization Address City/State/ZIP Code Phon e Number [place] [address] [place], [place] [address] [facility] [address] [place], [place] [address] [phone] Blood component (06/28/2019 4:29 PM CLAM TREADER) Patholo gist Method Time Signature Unit Number [id number] 06/29/2019 [facility] 10:11 AM [facility] Blood Red Blood Cells 06/29/2019 [facility] Component LeukoReduced 10:11 AM [facility] Type Irradiated [facility] Division 00 06/29/2019 [facility] Number 10:11 AM [facility] Status of Released to care 07/01/2019 [facility] Unit unit 11:52 PM [facility] Blood Product [id number] 06/29/2019 [facility] Code 10:11 AM [facility] Unit Status ISS [facility] Specimen Anatomical Collection Method Collection Time Receive d Time (Source) Location / / Volume Laterality 06/28/2019 4:29 PM 9 4:30 CLAM TREADER PM CLAM TREADER Dylon Cr MD LABORATORY Performing Organization Address City/[facility] Code Phon e Number M [facility] [address] [place], [place] [address] [phone] [facility] [address] [phone] ABO/Rh type and screen (06/28/2019 4:29 PM CLAM TREADER) [facility] gist Method Time Signature Units Ordered 2 06/29/2019 [facility] 10:11 AM [facility] ABO A 06/28/2019 [facility] 5:05 PM [facility] RH(D) Pos [facility] Antibody Neg 06/28/2019 [facility] Screen 5:05 PM [facility] Test Valid [place] 06/28/2019 [facility] Only At [facility] 5:06 PM [facility] Specimen 07/01/2019 06/28/2019 [facility] Expires 5:06 PM [facility] Crossmatch Red Blood 06/29/2019 [facility] Cells 10:11 AM [facility] Specimen Anatomical Collection Method Collection Time Receive d Time (Source) Location / / Volume Laterality Blood specimen 06/28/2019 4:29 PM 019 4:30 (specimen) CLAM TREADER PM CLAM TREADER Dylon Cr MD LAB - BLOOD BANK TEST ORDER Performing Organization Address City/[facility]/ZIP [facility] Phon e Number M [facility] [address] [address] [facility] [address] [phone] documented in this encounter Visit Diagnoses Diagnosis 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
--- OUTSIDE RECORDS SUMMARY | 2022-05-02 12:16 | XMS_ITS | Encounter Summary ---
:1970 Author Organization [facility] Address [address] [place] [address] Care Team Providers Name Role Phone No Ref-Primary, Physician Primary Care Provider [phone] Candida Epps MD Unavailable Shala Bell RN Unavailable Unavailable Encounter Details Date Type Department Care Team Description 07/29/2019 Travel Social History Tobacco Use Types Packs/Day [...] on filedocumented in this encounter Care Teams Visual Coordinator Relationship Specialty Start Date End Date No Ref-Primary, PCP - General 09/30/17 Physician Candida Epps MD MD Internal Medicine 01/15/[address] [place] [address] [address] [place] [address] Shala Bell, HELENE Specialty Care Hematology & Oncology 01/15/19 07/23/21 Coordinator documented as of this encounter
--- OUTSIDE RECORDS SUMMARY | 2022-05-02 12:16 | XMS_ITS | Encounter Summary ---
:1970 Author Organization [place] Address [address] [place] [address] Care Team Providers Name Role Phone No Ref-Primary, Physician Primary Care Provider Candida Epps MD Unavailable Shala Bell RN Unavailable Unavailable Ronaldo jones MD Unavailable Candida Epps MD Unavailable Boaz Garcia MD Unavailable Rodrick Turner MD Unavailable Reason for Visit Reason Onset Date Comments Appointment 07/02/2019 Encounter Details Date Type Department Care Team Description 07/02/2019 Telephone [facility] Barbara Theodore MD Appointment Center [address] [facility] 300 [address] [place] [address] [place] [address] [phone] Social History Tobacco Use Types Packs/Day Years Used Date Smoking Tobacco: Former Cigarettes Quit : 09/27/2012 Smokeless Tobacco: Never Comments: quit September 27, 2012 Alcohol Use Standard Drinks/Week Comments Yes 0 (1 standard drink = 0.6 oz pure alcoho l) 1 drink per week Sex Assigned at Date Recorded Not on file documented as of this encounter Miscellaneous Notes Telephone Encounter - ReasonWinter - 07/02/2019 10:57 AM CST Reason for call: Other Patient called regarding (reason for call): appointment Additional comments: per Zeinab from [place] [facility] , the patient needs to be seen sooner becausethe 'cardiac workup was expedited and the patient needs the test before being cleared for surgery. Roxane has faxed over notes in regards to the patient. Phone number to reach patient: Home number on file [phone] (home) Best Time: anytime Can we leave a detailed message on this number? 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 documented in 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 Care Teams Water Plant Pump Operator Supervisor Relationship Specialty Start Date End Date No Ref-Primary, PCP - General 09/30/17 Physician Candida Epps MD MD Internal Medicine 01/15/[address] [place] [address] [address] [place], [place] [address] Shala Bell, HELENE Specialty Care Hematology & Oncology 01/15/19 07/23/21 Coordinator Ronaldo Cheatham, Assigned Heart and 05/05/20 MD Vascular Provider 420 [facility] 508 [place] [address] Candida Epps MD Assigned Cancer Care 05/05/20 07/22/20 [facility] Provider [facility] [address] [place], [place] [id number] Boaz Garcia Assigned Surgical 05/05/20 01/25/21 MD Cosntantine Provider [address] [facility] 195 [place], [place] [address] Rodrick Turner MD Assigned Sleep Provider 05/05/20 01/06/[address] [place] [address] [place] [address] documented as of this encounter
--- OUTSIDE RECORDS SUMMARY | 2022-05-02 12:16 | XMS_ITS | Encounter Summary ---
:1970 Author Organization [place] Address [address] [place] [address] Care Team Providers Name Role Phone No Ref-Primary, Physician Primary Care Provider [phone] Candida Epps MD Unavailable Shala Bell RN Unavailable Unavailable Encounter Details Date Type Department Care Team Description 06/29/2019 Travel Social History Tobacco Use Types Packs/Day [...] on filedocumented in this encounter Care Teams Wafer Fab Operator Relationship Specialty Start Date End Date No Ref-Primary, PCP - General 09/30/17 Physician Candida Epps MD MD Internal Medicine 01/15/[address] [place] [address] [address] [place] [address] Shala Bell, HEELNE Specialty Care Hematology & Oncology 01/15/19 07/23/21 Coordinator documented as of this encounter
--- OUTSIDE RECORDS SUMMARY | 2022-05-02 12:16 | XMS_ITS | Encounter Summary ---
:1970 Author Organization [place] Address [address] [place] [address] Care Team Providers Name Role Phone No Ref-Primary, Physician Primary Care Provider [phone] Candida Epps MD Unavailable Shala Bell RN Unavailable Unavailable Reason for Referral (Routine) - Closed Specialty Diagnoses / Procedures Referred By Contact Refer red To Contact Diagnoses Splenomegaly Amada Felix MD [address] [place] [address] Referral ID Status Reason Start Date Expiration Date Visits Requ ested Visits Authorized [id number] Closed 07/29/2019 07/28/2020 1 1 E CONSULTANT Encounter Details Date Type Department Care Team Description 07/29/2019 Prep for Procedure General Surgery Boaz Garcia Splenomegaly 909 [facility] MD [place] (Primary Dx) [address] [address] [phone] Social History Tobacco Use Types Packs/Day Years [...] Type Priority Associated Diagnoses Order S chedule PAC Visit Referral (For Referral Routine Splenomegaly Orde red: 07/29/2019 [facility] Only) documented as of this encounter Results ABO/Rh Type and Screen (08/03/2019 5:15 PM STORE CONSULTANT) [facility] Method Time Signature Units Ordered 2 08/03/2019 [place] 6:08 PM [facility] ABO A 08/03/2019 [place] 6:05 PM [facility] RH(D) Pos [facility] Antibody Neg 08/03/2019 [place] Screen 6:05 PM [facility] Test Valid [place] 08/03/2019 [place] Only At [facility] 6:08 PM [facility] Specimen 08/06/2019 08/03/2019 [place] Expires 6:08 PM [facility] Crossmatch Red Blood 08/03/2019 [place] Cells 6:08 PM [facility] Specimen Anatomical Collection Method Collection Time Receive d Time (Source) Location / / Volume Laterality Blood specimen 08/03/2019 5:15 PM 020 5:18 (specimen) STORE CONSULTANT PM STORE CONSULTANT Boaz Garcia MD LAB - BLOOD BANK TEST ORDER Performing Organization Address City/State/ZIP Code Phon e Number M [facility] [address] [address] [facility] [address] [phone] documented in this encounter Visit Diagnoses Diagnosis Splenomegaly - Primary documented in this encounter Care Teams Trucking Supervisor Relationship Specialty Start Date End Date No Ref-Primary, PCP - General 09/30/17 Physician Candida Epps MD MD Internal Medicine 01/15/19 420 [facility] 480 [place] [address] Shala Bell, HELENE Specialty Care Hematology & Oncology 01/15/19 07/23/21 Coordinator documented as of this encounter
--- OUTSIDE RECORDS SUMMARY | 2022-05-02 12:16 | XMS_ITS | Encounter Summary ---
:1970 Author Organization [place] Address [address] [place] [address] Care Team Providers Name Role Phone No Ref-Primary, Physician Primary Care Provider [phone] Candida Epps MD Unavailable Shala Bell RN Unavailable Unavailable Encounter Details Date Type Department Care Team Description 06/13/2019 [facility] Dylon Cr MD [place] [facility] [address] [facility] 200 [place] [address] Myeloproliferative Encounter [facility] India Sharp NP [place] [facility] HEMATOLOGY [address] [facility] 200 [place], [place] [phone] disorder (H) [address] [place] [phone] Social History Tobacco Use Types Packs/Day Years [...] Associated Diagnosis Comme nts BLOOD COMPONENT Routine 06/13/2019 10:10 Myeloproliferative Re sults for this AM SPOOL SALVAGER disorder (H) procedure are i n the results section. BLOOD COMPONENT Routine 06/13/2019 10:10 Myeloproliferative Re sults for this AM SPOOL SALVAGER disorder (H) procedure are i n the results section. ABO/RH TYPE AND Routine 06/13/2019 10:10 Myeloproliferative Re sults for this SCREEN AM SPOOL SALVAGER disorder (H) procedure are i n the results section. documented in this encounter Results Blood component (06/13/2019 10:10 AM SPOOL SALVAGER) [facility] gist Method Time Signature Unit Number [id number] 06/13/2019 [facility] 1:39 PM [facility] Blood Red Blood Cells 06/13/2019 [facility] Component LeukoReduced 1:39 PM [facility] Irradiated HOSPITAL Division 00 06/13/2019 [facility] Number 1:39 PM [facility] Status of Released to care 06/14/2019 [facility] Unit unit 11:52 PM [facility] Blood Product [id number] 06/13/2019 [facility] Code 1:39 PM [facility] Unit Status ISS [facility] Specimen Anatomical Collection Method Collection Time Receive d Time (Source) Location / / Volume Laterality 06/13/2019 10:10 06/13/2019 AM SPOOL SALVAGER 10:14 AM SPOOL SALVAGER India Sharp NP LABORATORY Performing Organization Address City/State/ZIP Code Phon e Number M [place] [address] [place] [address] [facility] [address] [place], [place] [address], [facility] [phone] Blood component (06/13/2019 10:10 AM SPOOL SALVAGER) [facility] Method Time Signature Unit Number [id number] 06/13/2019 [facility] 1:39 PM [facility] Blood Red Blood Cells 06/13/2019 [facility] Component LeukoReduced 1:39 PM [facility] Irradiated HOSPITAL Division 00 06/13/2019 [facility] Number 1:39 PM [facility] Status of Released to care 06/14/2019 [facility] Unit unit 11:52 PM [facility] Blood Product [id number] 06/13/2019 [facility] Code 1:39 PM [facility] Unit Status ISS [facility] Specimen Anatomical Collection Method Collection Time Receive d Time (Source) Location / / Volume Laterality 06/13/2019 10:10 06/13/2019 AM [facility] 10:14 AM SPOOL SALVAGER India Sharp NP LABORATORY Performing Organization Address City/State/ZIP Code [facility] e Number [facility] [address] [place], [place] [address] [facility] [address] [place], [place] [address] [phone] ABO/Rh type and screen (06/13/2019 10:10 AM SPOOL SALVAGER) [facility] Method [place] Signature Units Ordered 2 06/13/2019 [facility] 11:17 AM [facility] ABO A 06/13/2019 [facility] 11:11 AM [facility] RH(D) Pos [facility] Antibody Neg 06/13/2019 [facility] Screen 11:11 AM [facility] Test Valid [place] 06/13/2019 [facility] Only At [facility] 11:17 AM [facility] Specimen 06/16/2019 06/13/2019 [facility] Expires 11:17 AM [facility] Crossmatch Red Blood 06/13/2019 [facility] Cells 11:17 AM [facility] Specimen Anatomical Collection Method Collection Time Receive d Time (Source) Location / / Volume Laterality Blood specimen 06/13/2019 10:10 9 (specimen) AM SPOOL SALVAGER 10:14 AM SPOOL SALVAGER India Sharp LIGHTER CAPTAIN LAB - BLOOD BANK TEST ORDER Performing Organization Address City/State/ZIP Code Phon e Number M [facility] [address] [place], [place] [address] [facility] [address] [place], [place] 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
--- OUTSIDE RECORDS SUMMARY | 2022-05-02 12:16 | XMS_ITS | Encounter Summary ---
:1970 Author Organization [place] Address [address] [place] [address] Care Team Providers Name Role Phone No Ref-Primary, Physician Primary Care Provider [phone] Candida Epps MD Unavailable Shala Bell RN Unavailable Unavailable Reason for Visit Reason Comments Blood Transfusion 1 unit prbc Encounter Details Date Type Department Care Team Description 06/29/2019 Infusion Therapy [facility] Dylon Cr Myelop roliferative Visit Cancer Center MD Chriss disorder (H) (Primary Dx) [facility] ONCOLOGY [facility] Medical Ctr [address] [facility] [place] [address] [address] [place], [place] [address] [address] [place], [place] [phone] [address] (Work) [phone] Social History Tobacco Use Types Packs/Day Years [...] Sign Reading Time Taken Comments Blood Pressure 91/43 06/29/2019 3:20 PM CUSTOMER SERVICE VOICE Pulse 94 06/29/2019 1:57 PM CUSTOMER SERVICE VOICE Temperature 37.1 ??C (98.8 ??F) 06/29/2019 3:20 PM CUSTOMER SERVICE VOICE Respiratory Rate 18 06/29/2019 1:57 PM CUSTOMER SERVICE VOICE Oxygen Saturation 100% 06/29/2019 3:20 PM CUSTOMER SERVICE VOICE Inhaled Oxygen Concentration - - Weight - - Height - - Body Mass Index - - documented in this encounter Progress Notes Bre Mosher RN - 06/29/2019 1:30 PM CST Infusion Nursing Note: Jennifer Dobbs presents today for 1 unit PRBC. Patient seen by provider today: No Escort Blind present during visit today: Not Applicable. Note: Patient needs 2 units PRBC but unable to do both today. She will return 07/01/19 to get secondunit. Okay to use same ABO. Intravenous Access: Peripheral IV placed. Treatment Conditions: Blood transfusion consent signed 08/02/18. HGB 5.0 on 06/28/19. Post Infusion Assessment: Patient tolerated infusion without incident. Blood return noted pre and post infusion. Site patent and intact, free from redness, edema or discomfort. No evidence of extravasations. Access discontinued per protocol. Discharge Plan: AVS to patient via MYCHART. Patient will return 07/01/19 for next appointment. Patient discharged in stable condition accompanied by: . Departure Mode: Ambulatory. 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
--- OUTSIDE RECORDS SUMMARY | 2022-05-02 12:16 | XMS_ITS | Encounter Summary ---
:1970 Author Organization [place] Address [address] [place] [address] Care Team Providers Name Role Phone No Ref-Primary, Physician Primary Care Provider [phone] Candida Epps MD Unavailable Shala Bell RN Unavailable Unavailable Encounter Details Date Type Department Care Team Description 06/28/2019 Travel Social History Tobacco Use Types Packs/Day [...] on filedocumented in this encounter Care Teams Coil Tester Relationship Specialty Start Date End Date No Ref-Primary, PCP - General 09/30/17 Physician Candida Epps MD MD Internal Medicine 01/15/[address] [place] [address] [address] [place] [address] Shala Bell, HELENE Specialty Care Hematology & Oncology 01/15/19 07/23/21 Coordinator documented as of this encounter
--- OUTSIDE RECORDS SUMMARY | 2022-05-02 12:16 | XMS_ITS | Encounter Summary ---
:1970 Author Organization [place] Address [address] [place] [address] Care Team Providers Name Role Phone No Ref-Primary, Physician Primary Care Provider [phone] Candida Epps MD Unavailable Shala Bell RN Unavailable Unavailable Reason for Referral (Routine) - Closed Specialty Diagnoses / Procedures Referred By Contact Refer red To Contact Diagnoses Splenomegaly Amada Felix MD [address] [address] Referral ID Status Reason Start Date Expiration Date Visits Requ ested Visits Authorized [id number] Closed 07/29/2019 07/28/2020 1 1 ENT REGISTRATION SUPERVISOR Reason for Visit Reason Comments RECHECK Splenectomy follow up. Encounter Details Date Type Department Care Team Description 07/29/2019 Office Visit [facility] General Boaz Garcia (Primary Surgery MD Constantine Dx) 909 [facility] [address] [place] [address] [address] [address] [phone] Social History Tobacco Use Types Packs/Day Years [...] Sign Reading Time Taken Comments Blood Pressure 109/67 07/29/2019 9:51 AM PATIENT REGISTRATION SUPERVISOR Pulse 87 07/29/2019 9:51 AM PATIENT REGISTRATION SUPERVISOR Temperature 37.3 ??C (99.1 ??F) 07/29/2019 9:51 AM PATIENT REGISTRATION SUPERVISOR Respiratory Rate - - Oxygen Saturation 98% 07/29/2019 9:51 AM PATIENT REGISTRATION SUPERVISOR Inhaled Oxygen Concentration - - Weight 92.5 kg (203 lb 14.4 oz) 07/29/2019 9:51 AM PATIENT REGISTRATION SUPERVISOR Height 169.5 cm (5' 6.75) 07/29/2019 9:51 AM PATIENT REGISTRATION SUPERVISOR Body Mass Index 32.17 07/29/2019 9:51 AM PATIENT REGISTRATION SUPERVISOR documented in this encounter Patient Instructions Patient InstructionsAmada Felix MD - 07/29/2019 10:00 AM CST It was a pleasure meeting with you today. Thank you for allowing us the privilege of caring for you. We hope we provided you with the excellent service you deserve. Please let us know if there is anything else we can do for you so that we can be sure you are leaving completely satisfied with your care experience. To ensure the quality of our services you may be receiving a patient satisfaction survey from an independent patient satisfaction monitoring company. The greatest compliment you can give is a Likely to Recommend You saw Dr Garcia today. Instructions per today's visit: 1. See your primary care doctor or oncologist for preoperative H&P 2. See Preanesthesia Clinic (PAC) for H&P 3. Call [facility] at [phone] for scheduling for operation. 4. Clarify need for repeat echocardiogram with Cardiology (referral sent for follow up Dr. Cheatham) Please call during clinic hours Friday through Friday 8:00a - 4:00p if you have questions or you cancontact us via [employer] at anytime. General Surgery Call Center: [phone] Commercial Coordinator: [phone] Please call the hospital at [phone] to speak with our manual control auger press operator MDs if you have urgent needs after hours, during weekends, or holidays. It was a pleasure meeting with you today. Thank you for allowing us the privilege of caring for you. We hope we provided you with the excellent service you deserve. Please let us know if there is anything else we can do for you so that we can be sure you are leaving completely satisfied with your care experience. ENT REGISTRATION SUPERVISOR documented in this encounter Progress Notes Boaz Garcia MD - 07/29/2019 10:00 AM CST General surgery follow-up visit note CC: It's time to get my spleen out HPI: Jennifer Dobbs is a 49-year-old female with history of myelodysplastic syndrome with splenomegaly who presents as a follow-up to a 02/04/19 visit for splenomegaly. At that time open splenectomy was recommended due to size of spleen (30cm). Due to discovery of a new murmur, patient was referred for echocardiogram which demonstrated moderate pulmonary hypertension. This was followed up with sleep medicinereferral and sleep study which recommended perioperative correction of hypoxemia and respiratory failure with noninvasive ventilatory support. She presents today and expresses that the frequency of transfusion is a major driving factor in wanting to proceed with splenectomy. She is still getting transfusions every 2-3 weeks and her hemoglobinoften drops to 4-6g/dL pre- transfusion. When her hemoglobin decreases in the days before a transfusion she experiences headache, racing heart, lightheadedness, decreased energy. She is also experiencing persistent abdominal pain that feels like a shank, worse in her left abdomen. This pain is better during the day and with movement and is largely unchanged over the past several months. Physical examination: BP 109/67 (BP Location: Left arm, Patient Position: Sitting, Cuff Size: Adult Large) Pulse 87 Temp 99.1 ??F (37.3 ??C) (Oral) Ht 1.695 m (5' 6.75) Wt 92.5 kg (203 lb 14.4 oz) SpO2 98% BMI 32.17 kg/m?? 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 Per patient's telecommunications project manager/oncologist, transfusion dependence likely mostly due to s plenomegaly but also with component of myelofibrosis. Open splenectomy initially postponed pending cardiac workup. Given finding of moderate pulmonary hypertension and sleep medicine evaluation indicating increased but non- prohibitive anesthetic risk for surgery, patient now appropriate to schedule for open splenectomy. Plan: - Proceed with open splenectomy pending repeat echocardiogram and cardiology follow-up - Pre-operative H&P, patient does not have primary care physician but will pursue this H&P with her telecommunications project manager/oncologist - Pursue appropriate splenectomy vaccinations, also through heme/onc Orders Placed This Encounter Procedures ??? Follow-Up with Bleacher Sulfite Pulp Physician Attestation I, Boaz Garcia, saw and evaluated this patient as part of a shared visit. I have reviewed and discussed with the advanced practice provider and/or resident their history, physical and plan. I personally reviewed the vital signs, medications, labs and imaging. My conley history or physical exam findings: has splenomegaly with anemia related to myelofibrosis. Hasn't had encapsulated organism immunizations yet; would want hemoglobin transfused to 8+ level prior to surgery, if possible. Conley management decisions made by me: Open splenectomy within next month. I spent 25 minutes with Jennifer and over half of the time involved counseling and coordination of cares. Boaz Garcia MD Date of Service (when I saw the patient): 07/29/19 Note prepared by: Benja Baron, MS3, [employer], who served as ascribe in the preparation of this note. ENT REGISTRATION SUPERVISOR documented in this encounter Nursing Notes Isa Luis, FRANCHISE DEVELOPMENT MANAGER - 07/29/2019 10:00 AM CST Chief Complaint Patient presents with ??? RECHECK Splenectomy follow up. Vitals: 07/29/19 0951 BP: 109/67 BP Location: Left arm Patient Position: Sitting Cuff Size: Adult Large Pulse: 87 Temp: 99.1 ??F (37.3 ??C) TempSrc: Oral SpO2: 98% Weight: 92.5 kg (203 lb 14.4 oz) Height: 1.695 m (5' 6.75) Body mass index is 32.17 kg/m??. Isa Jiang CMA ENT REGISTRATION SUPERVISOR Sulema Hess - 07/29/2019 10:00 AM CST This patient is having open splenectomy by Dr. Garcia. Call [phone] Brett Dela Cruz to confirm surgery date Call [phone] to schedule your pre-operative history and physical with our PAC clinic. ENT REGISTRATION SUPERVISOR documented in this encounter Plan of Treatment Scheduled Referrals Name Type Priority Associated Diagnoses Order S chedule Follow-Up with Referral Routine Splenomegaly Expected: Bleacher Sulfite Pulp (Approximate), Expires: 2020 documented as of this encounter Visit Diagnoses Diagnosis Splenomegaly - Primary documented in this encounter Care Teams Brazing Furnace Feeder Relationship Specialty Start Date End Date No Ref-Primary, PCP - General 09/30/17 Physician Candida Epps MD MD Internal Medicine 01/15/[address] [place] [address] Shala Bell, HELENE Specialty Care Hematology & Oncology 01/15/19 07/23/21 Coordinator documented as of this encounter
--- OUTSIDE RECORDS SUMMARY | 2022-05-02 12:16 | XMS_ITS | Encounter Summary ---
:1970 Author Organization [place] Address [address] [place] [address] Care Team Providers Name Role Phone No Ref-Primary, Physician Primary Care Provider [phone] Candida Epps MD Unavailable Shala Bell RN Unavailable Unavailable Encounter Details Date Type Department Care Team Description 07/16/2019 Travel Social History Tobacco Use Types Packs/Day [...] on filedocumented in this encounter Care Teams Readers' Advisory Service Librarian Relationship Specialty Start Date End Date No Ref-Primary, PCP - General 09/30/17 Physician Candida Epps MD MD Internal Medicine 01/15/[address] [place] [address] [address] [place] [address] Shala Bell, HELENE Specialty Care Hematology & Oncology 01/15/19 07/23/21 Coordinator documented as of this encounter
--- OUTSIDE RECORDS SUMMARY | 2022-05-02 12:16 | XMS_ITS | Encounter Summary ---
:1970 Author Organization [place] Address [address] [place] [address] Care Team Providers Name Role Phone No Ref-Primary, Physician Primary Care Provider [phone] Candida Epps MD Unavailable Shala Bell RN Unavailable Unavailable Encounter Details Date Type Department Care Team Description 08/03/2019 Hospital Encounter [facility] Dylon Cr MD MA ONCOLOGY [address] [facility] [address] [place] [address] [facility] Boaz Garcia MD [address] [facility] [address] [facility] [address] [place] [address] [address] [place] [address] Social History Tobacco Use Types [...] by 0 bicarbonate-citric acid mouth (VASYL-SELTZER GOLD) [id number] MG TBEF solu-tab haemophilus B Inject 0.5 mLs into 15 mL 6 07/29/2019 conj-meningoccal (PEDVAX the muscle once for HIB) 7.5 MCG/0.5 ML 1 dose Inject 0.5 injectionIndications: mLs into the muscle Splenomegaly once documented as of this encounter Plan of Treatment Not on filedocumented as of this encounter Procedures Procedure Name Priority Date/Time Associated Diagnosis Comme nts BLOOD COMPONENT Routine 08/03/2019 5:15 PM Splenomegaly Result s for this ACIDIZER procedure are i n the results section. BLOOD COMPONENT Routine 08/03/2019 5:15 PM Splenomegaly Result s for this ACIDIZER procedure are i n the results section. ABO/RH TYPE AND Routine 08/03/2019 5:15 PM Splenomegaly Result s for this SCREEN ACIDIZER procedure are i n the results section. documented in this encounter Results Blood component (08/03/2019 5:15 PM ACIDIZER) [facility] gist Method Time Signature Unit Number [id number] 08/03/2019 [facility] 6:08 PM [facility] Blood Red Blood Cells 08/03/2019 [facility] Component LeukoReduced 6:08 PM [facility] Irradiated HOSPITAL Division 00 08/03/2019 [facility] Number 6:08 PM [facility] Status of Released to care 08/04/2019 [place] Unit unit 11:52 PM [facility] Blood Product [id number] 08/03/2019 [facility] Code 6:08 PM [facility] Unit Status ISS [facility] Specimen Anatomical Collection Method Collection Time Receive d Time (Source) Location / / Volume Laterality 08/03/2019 5:15 PM 0 5:18 ACID[facility]ER PM ACID[facility]ER Boaz Garcia MD LABORATORY Performing Organization Address City/State/ZIP Code Phon e Number M [facility] [address] [place], [place] [address] [facility] [address] [place], [place] [address], [facility] [phone] Blood component (08/03/2019 5:15 PM ACIDIZER) [facility] [employer] Method Time Signature Unit Number [id number] 08/03/2019 [facility] 6:08 PM [facility] Blood Red Blood Cells 08/03/2019 [facility] Component LeukoReduced 6:08 PM [facility] Irradiated HOSPITAL Division 00 08/03/2019 [facility] Number 6:08 PM [facility] Status of Released to care 08/04/2019 [facility] Unit unit 11:52 PM [facility] Blood Product [id number] 08/03/2019 [facility] Code 6:08 PM [facility] Unit Status ISS [facility] Specimen Anatomical Collection Method Collection Time Receive d Time (Source) Location / / Volume Laterality 08/03/2019 5:15 PM 0 5:18 ACIDIZER PM AC[facility] Boaz Garcia MD LABORATORY Performing Organization Address City/State/ZIP Code Phon e Number M [facility] [address] [place], [place] [address] [facility] [address] [place], [place] [address], [facility] [phone] ABO/Rh Type and Screen (08/03/2019 5:15 PM ACIDIZER) [facility] [employer] Method Time Signature Units Ordered 2 08/03/2019 [facility] 6:08 PM [facility] ABO A 08/03/2019 [facility] 6:05 PM [facility] RH(D) Pos [facility] Antibody Neg 08/03/2019 [facility] Screen 6:05 PM [facility] Test Valid [place] 08/03/2019 [facility] Only At [facility] 6:08 PM [facility] Specimen 08/06/2019 08/03/2019 [place] Expires 6:08 PM [facility] Crossmatch Red Blood 08/03/2019 [place] Cells 6:08 PM [facility] Specimen Anatomical Collection Method Collection Time Receive d Time (Source) Location / / Volume Laterality Blood specimen 08/03/2019 5:15 PM 020 5:18 (specimen) ACIDIZER PM ACIDIZER Boaz Garcia MD LAB - BLOOD BANK TEST ORDER Performing Organization Address City/State/ZIP Code Phon e Number M [place] [address] [address], [place] [address] [phone] [facility] [address] [phone] documented in this encounter Visit Diagnoses Diagnosis Splenomegaly documented in this encounter Care Teams Field Service Coordinator Relationship Specialty Start Date End Date No Ref-Primary, PCP - General 09/30/17 Physician Candida Epps MD MD Internal Medicine 01/15/[address] [place] [address] [address] [place] [address] Shala Bell RN Specialty Care Hematology & Oncology 01/15/19 07/23/21 Coordinator documented as of this encounter
--- OUTSIDE RECORDS SUMMARY | 2022-05-02 12:16 | XMS_ITS | Encounter Summary ---
:1970 Author Organization [place] Address [facility] [place] [address] Care Team Providers Name Role Phone No Ref-Primary, Physician Primary Care Provider [phone] Candida Epps MD Unavailable Shala Bell RN Unavailable Unavailable Reason for Visit Reason Comments Consult snores, mouth dryed out, tos s and turn because of uncomfortable Encounter Details Date Type Department Care Team Description 07/05/2019 Office Visit [facility] Nini Turner MD SANDEE (obstructive sleep apnea) (Primary D x); Sleep Center [address] Chronic respi ratory failure with hypoxia and hypercapnia (H) [address] [phone] Social History Tobacco Use Types Packs/Day Years [...] Taken Comments Blood Pressure - - Pulse 87 07/05/2019 2:20 PM CLINICAL AUDITOR Temperature - - Respiratory Rate - - Oxygen Saturation 97% 07/05/2019 2:20 PM CLINICAL AUDITOR Inhaled Oxygen Concentration - - Weight 90.3 kg (199 lb) 07/05/2019 2:20 PM CLINICAL AUDITOR Height 169.6 cm (5' 6.77) 07/05/2019 2:20 PM CLINICAL AUDITOR Body Mass Index 31.38 07/05/2019 2:20 PM CLINICAL AUDITOR documented in this encounter Patient Instructions Patient InstructionsJaz Wing - 07/05/2019 2:00 PM CST Your blood pressure was checked while you were in clinic today. Please read the guidelines below about what these numbers mean and what you should do about them. Your systolic blood pressure is the top number. This is the pressure when the heart is pumping. Your diastolic blood pressure is the bottom number. This is the pressure in between beats. If your systolic blood pressure is less than 120 and your diastolic blood pressure is less than 80, then your blood pressure is normal. There is nothing more that you need to do about it If your systolic blood pressure is 120-139 or your diastolic blood pressure is 80-89, your blood pressure may be higher than it should be. You should have your blood pressure re-checked within a year by a primary care provider. If your systolic blood pressure is 140 or greater or your diastolic blood pressure is 90 or greater,you may have high blood pressure. High blood pressure is treatable, but if left untreated over time it can put you at risk for heart attack, stroke, or kidney failure. You should have your blood pressure re- checked by a primary care provider within the next four weeks. Your BMI is There is no height or weight on file to calculate BMI. Weight management is a personal decision. If you are interested in exploring weight loss strategies,the following discussion covers the approaches that may be successful. Body mass index (BMI) is one way to tell whether you are at a healthy weight, overweight, or obese. It measures your weight in relation to your height. A BMI of 18.5 to 24.9 is in the healthy range. A person with a BMI of 25 to 29.9 is considered overweight, and someone with a BMI of 30 or greater is considered obese. More than two-thirds of [place] Citizen adults are considered overweight or obese. Being overweight or obese increases the risk for further weight gain. Excess weight may lead to heart disease and diabetes. Creating and following plans for healthy eating and physical activity may help you improve your health. Weight control is part of healthy lifestyle and includes exercise, emotional health, and healthy eating habits. Careful eating habits lifelong are the mainstay of weight control. Though there are significant health benefits from weight loss, long-term weight loss with diet alone may be very difficult to achieve- studies show long-term success with dietary management in less than 10% of people. Attaining a healthy weight may be especially difficult to achieve in those with severe obesity. In some cases, medications, devices and surgical management might be considered. What can you do? If you are overweight or obese and are interested in methods for weight loss, you should discuss this with your provider. ??? Consider reducing daily calorie intake by 500 calories. ??? Keep a food journal. ??? Avoiding skipping meals, consider cutting portions instead. Diet combined with exercise helps maintain muscle while optimizing fat loss. Strength training is particularly important for building and maintaining muscle mass. Exercise helps reduce stress, increaseenergy, and improves fitness. Increasing exercise without diet control, however, may not burn enoughcalories to loose weight. ??? Start walking three days a week 10-20 minutes at a time ??? Work towards walking thirty minutes five days a week ??? Eventually, increase the speed of your walking for 1-2 minutes at time In addition, we recommend that you review healthy lifestyles and methods for weight loss available through the National Institutes of Health patient information sites: http://win.niddk.nih.gov/publications/index.htm And look into health and wellness programs that may be available through your health insurance provider, employer, local community center, or kathryn club. ICAL AUDITOR documented in this encounter Progress Notes Nini Turner MD - 07/05/2019 2:00 PM CST Images from the original note were not included. [facility] Outpatient Sleep Medicine Consultation July 05, 2019 Name: Jennifer Dobbs Age: [age] year old Date of : 1970 Date of Consultation: July 05, 2019 Consultation is requested by: No referring provider defined for this encounter. No ref. provider found Primary care provider: No Ref-Primary, Physician Reason for Sleep Consult: Jennifer Dobbs is a 49 year old female for complaints chronic pain from splenic distension from myelofibrosis and new evidence of pulmonary hypertension. Assessment and Plan: Summary Sleep Diagnoses: ?? Chronic myelofibrosis with severe hepatosplenomegaly and abdominal pain ?? Probable chronic hypoxemic and hypercapnic respiratory failure complicating restrictive lung disease from hepatosplenomegaly and chronic narcotic use with superimposed central and/or obstructive sleep apnea ?? Pulmonary hypertension possibly secondary to microvascular injury and or pulmonary artery vasoconstrictive disease from respiratory failure ?? Increased but not prohibitive anesthetic risk in the setting that might best be handled by perioperative noninvasive mask ventilatory support ?? Daytime sleepiness and nocturnal insomnia related to dyspnea with sleep disruption from pain and dyspnea Felton sleepiness scale 12 insomnia severity scale 18 Summary Recommendations: ?? Venous blood gas today to determine severity of hypercapnia ?? Obtain spirometry for evaluation of severity of lung restriction ?? Sleep study for titration of EPAP, oxygen, and average volume assured ventilatory support based on management of obstructive events, simple hypoxemia, and ventilatory failure [as measured by nocturnal CO2 rise] respectively. ?? We would recommend perioperative correction of hypoxemia and respiratory failure with oxygen/average volume assured ventilatory support by noninvasive nasal mask to reduce hypoxic stress and improvesleep quality Summary Counseling: This patient acknowledges rather severe burden of suffering from pain and dyspnea and is aware of the increased risk of surgical management of her splenectomy as well as attendant risk of subsequent approaches to her therapy for myelofibrosis. She would like an aggressive approach rather than palliative care at the present time though this should be discussed with her primary carephysicians. History of Present Illness: Jennifer Dobbs is a 49 year old female with myeloproliferative disease for perhaps 2 decades by symptoms and hepatosplenomegaly with chronic abdominal pain and newly diagnosed unexplained pulmonary hypertension with normal perfusion lung excluding pulmonary emboli and normal platelets making thrombocytosis microvascular obstruction less likely. She claims to be here to determine whether she can have splenectomy performed to manage her chronic unrelenting pain. Overnight oximetry demonstrates nearly 3 hours of continuous hypoxemia with prominent likely REM related desaturations once patient falls asleep on July 03 and less prolonged desaturation of 47 minutes on July 02 with similar probable REM related events. Abdominal CT: No Known Allergies Past Medical History: Past Medical History: Diagnosis Date ??? Myelofibrosis (H) 10/2015 Past Surgical History: Past Surgical History: Procedure Laterality Date ??? BONE MARROW BIOPSY, BONE SPECIMEN, NEEDLE/TROCAR Left 09/14/2015 Procedure: BIOPSY BONE MARROW; Surgeon: Paolo Purcell MD; Location: [facility] OR ??? ENT SURGERY Tonsillectomy ??? ENT SURGERY Myringotomies x 1 ??? SOFT TISSUE SURGERY Stitches in finger Social History: Social History Tobacco Use ??? Smoking status: Former Smoker Last attempt to quit: 09/27/2012 Years since quittin.7 ??? Smokeless tobacco: Never Used ??? Tobacco comment: quit September 27, 2012 Substance Use Topics ??? Alcohol use: Yes Comment: 1 drink per week Family History: No family history on file. Review of Systems: A complete 10 point review of systems was negative other than HPI or as commented below: Physical Examination: No flowsheet data found. Moderate respiratory distress with a respiratory rate of 28 Minimal epigastric abdominal excursion on inspiration with abdominal distention Constitutional: . Awake, alert, cooperative, dressed casually, good eye contact, comfortably sittingin a chair, in no apparent distress Mood: Anxious, diaphoretic, uncomfortable Attention/Concentration: Normal Eyes: No icterus. Cardiovascular: Regular S1 and S2, no gallops or murmurs. No carotid bruits Neck: Supple, no thyroid enlargement. Pulmonary: Chest symmetric, lungs clear bilaterally and no crackles, wheezes or rales; shallow respirations Data: All pertinent previous laboratory data reviewed No results found for: PH, PHARTERIAL, PO2, [id number], SAT, PCO2, HCO3, BASEEXCESS, TIFFANY, BEB No results found for: TSH Lab Results Component Value Date GLC 91 11/09/2018 GLC 102 (A) 08/06/2018 Lab Results Component Value Date HGB 8.1 (L) 01/22/2019 HGB 7.3 (L) 11/09/2018 Lab Results Component Value Date BUN 13 11/09/2018 BUN 9 12/13/2015 CR 0.93 11/09/2018 CR 0.72 08/06/2018 Lab Results Component Value Date AST 23 11/09/2018 AST 18 08/06/2018 ALT 10 11/09/2018 ALT 12 08/06/2018 ALKPHOS 41 11/09/2018 ALKPHOS 49 12/13/2015 BILITOTAL 1.2 11/09/2018 BILITOTAL 1.0 12/13/2015 No results found for: UAMP, UBARB, BENZODIAZEUR, UCANN, UCOC, OPIT, UPCP Echocardiology:Interpretation Summary Left ventricular function, chamber size, wall motion, and wall thickness are normal.The EF is 55-60%. Left ventricular diastolic function is normal. Right ventricle is mildly dilated with normal function. No significant valve disease. Moderate pulmonary hypertension is present with estimated PA systolic pressure of 55 mmHg. IVC diameter <2.1 cm collapsing >50% with sniff suggests a normal RA pressure of 3 mmHg. There is no prior study for direct comparison. __ Left Ventricle Left ventricular function, chamber size, wall motion, and wall thickness are normal.The EF is 55-60%. Left ventricular diastolic function is normal. No regional wall motion abnormalities are seen. Right Ventricle Global right ventricular function is normal. Mild right ventricular dilation is present. Atria The right atria appears normal. Mild left atrial enlargement is present. The atrial septum is intact as assessed by color Doppler . Mitral Valve Mitral leaflet thickness is increased . Trace mitral insufficiency is present. Aortic Valve Aortic valve is normal in structure and function. The aortic valve is tricuspid. Tricuspid Valve The tricuspid valve is normal. Mild tricuspid insufficiency is present. Moderate pulmonary hypertension is present. Right ventricular systolic pressure is 52mmHg above the right atrial pressure. Pulmonic Valve The pulmonic valve is normal. Vessels The thoracic aorta is normal. The aorta root is normal. IVC diameter <2.1 cm collapsing >50% with sniff suggests a normal RA pressure of 3 mmHg. PA not seen well but may be mildly dilated. Pericardium No pericardial effusion is present. Compared to Previous Study There is no prior study for direct comparison. Copy to: No Ref-Primary, Physician NINI TURNER MD 07/05/2019 Total time spent with patient: 45 min >50% counseling ICAL AUDITOR documented in this encounter Plan of Treatment Not on filedocumented as of this encounter Visit Diagnoses Diagnosis SANDEE (obstructive sleep apnea) - Primary Obstructive sleep apnea (adult) (pediatr ic) Chronic respiratory failure with hypoxia and hypercapnia (H) documented in this encounter Care Teams Fisheries Technical Officer Relationship Specialty Start Date End Date No Ref-Primary, PCP - General 3/20/18 Physician Candida Epps MD MD Internal Medicine 01/15/[address] [place] [address] Shala Bell, HELENE Specialty Care Hematology & Oncology 01/15/19 07/23/21 Coordinator documented as of this encounter
--- OUTSIDE RECORDS SUMMARY | 2022-05-02 12:16 | XMS_ITS | Encounter Summary ---
:1970 Author Organization [place] Address [address] [place] [address] Care Team Providers Name Role Phone No Ref-Primary, Physician Primary Care Provider [phone] Candida Epps MD Unavailable Shala Bell RN Unavailable Unavailable Reason for Visit Reason Comments Blood Transfusion 2U PRBC Encounter Details Date Type Department Care Team Description 08/04/2019 Infusion Therapy [facility] Dylon Cr Myelop roliferative Visit [facility] MD Chriss disorder (H) (Primary Dx) [facility] ONCOLOGY [facility] [address] [facility] [place] [address] [address] [place], [place] [address] [place], [place] [phone] (Work) [phone] Social History Tobacco Use Types Packs/Day Years [...] Sign Reading Time Taken Comments Blood Pressure 131/63 08/04/2019 11:14 AM INSURANCE OFFICE MANAGER Pulse 79 08/04/2019 11:14 AM INSURANCE OFFICE MANAGER Temperature 37 ??C (98.6 ??F) 08/04/2019 11:14 AM INSURANCE OFFICE MANAGER Respiratory Rate - - Oxygen Saturation 99% 08/04/2019 11:14 AM INSURANCE OFFICE MANAGER Inhaled Oxygen Concentration - - Weight - - Height - - Body Mass Index - - documented in this encounter Progress Notes Cathi Hernandez RN - 08/04/2019 8:00 AM CST Infusion Nursing Note: Jennifer Dobbs presents today for 2U PRBC. Patient seen by provider today: No Song Lyricist present during visit today: Not Applicable. Note: Pt is continuing to require frequent transfusion, being largely contributed to by her enlargedspleen. Pt was planning splenectomy but this has been put on hold currently, as her echo demonstrated pulmonary HTN, which is still currently being evaluated by pulmonary MD Intravenous Access: Peripheral IV placed. Treatment Conditions: Blood transfusion consent signed 12/14/18. Hgb 5.8 on 07/30/19 at [facility]. Post Infusion Assessment: Patient tolerated infusion without incident. Blood return noted pre and post infusion. Site patent and intact, free from redness, edema or discomfort. No evidence of extravasations. Access discontinued per protocol. Discharge Plan: Discharge instructions reviewed with: Patient and . Patient and/or family verbalized understanding of discharge instructions and all questions answered. AVS to patient via [employer]. Patient will return as needed for transfusion support Patient discharged in stable condition accompanied by: . Departure Mode: Ambulatory. Cathi Hernandez RN RANCE OFFICE MANAGER documented in this encounter Plan of Treatment Not on filedocumented as of this encounter Procedures Procedure Name Priority Date/Time Associated Diagnosis Comme nts TRANSFUSE RED BLOOD Routine 08/04/2019 9:56 AM Myeloproliferat otoniel disorder CELL UNIT INSURANCE OFFICE MANAGER (H) TRANSFUSE RED BLOOD Routine 08/04/2019 8:24 AM Myeloproliferat otoniel disorder CELL UNIT INSURANCE OFFICE MANAGER (H) documented in this encounter Results Transfuse red blood cell unit (08/04/2019 11:32 AM INSURANCE OFFICE MANAGER) Dylon Cr MD IP NURSING BLOOD ADMINISTRAT ON Transfuse red blood cell unit (08/04/2019 11:32 AM INSURANCE OFFICE MANAGER) Dylon Cr MD IP NURSING BLOOD ADMINISTRAT ON Transfuse red blood cell unit (08/04/2019 9:47 AM INSURANCE OFFICE MANAGER) Dylon Cr MD IP NURSING BLOOD ADMINISTRAT ON documented in this encounter Visit Diagnoses Diagnosis 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
--- OUTSIDE RECORDS SUMMARY | 2022-05-02 12:16 | XMS_ITS | Encounter Summary ---
:1970 Author Organization [facility] Address [address] [place] [address] Care Team Providers Name Role Phone No Ref-Primary, Physician Primary Care Provider [phone] Candida Epps MD Unavailable Shala Bell RN Unavailable Unavailable Reason for Visit Reason Comments Blood Transfusion 2 units PRBC's Encounter Details Date Type Department Care Team Description 06/14/[address] [facility] FENG Leyva disorder (H) (Primary Dx) [facility] ONCOLOGY [facility] Medical Ctr HEMATOLOGY [facility] [address] [address] [place] [address] [place] [address] Social History Tobacco Use Types Packs/Day Years [...] Sign Reading Time Taken Comments Blood Pressure 124/61 06/14/2019 12:25 PM POLICE SHIFT COMMANDER Pulse 88 06/14/2019 12:25 PM POLICE SHIFT COMMANDER Temperature 36.8 ??C (98.2 ??F) 06/14/2019 12:25 PM POLICE SHIFT COMMANDER Respiratory Rate 16 06/14/2019 12:25 PM POLICE SHIFT COMMANDER Oxygen Saturation 97% 06/14/2019 11:15 AM POLICE SHIFT COMMANDER Inhaled Oxygen Concentration - - Weight - - Height - - Body Mass Index - - documented in this encounter Progress Notes Aleyda Loera RN - 06/14/2019 8:00 AM CST Infusion Nursing Note: Jennifer Dobbs presents today for 2 units PRBC's. Patient seen by provider today: No Driver License Technician present during visit today: Not Applicable. Note: Patient fatigued, SOB and dizzy (power was out in building and she had to walk up the stairs to our clinic- dizziness went away once seated for about 10 minutes). Her pain level was a #11 today (from 1-10) where her spleen is located. She stated it has been this way for the last few days but shethinks part of it is due to constipation. She is taking Senna and another powder (patient couldn't remember name) for the constipation. Patient states this is also her baseline. Intravenous Access: Peripheral IV placed. Treatment Conditions: Blood transfusion consent signed 12/14/18. Hemoglobin 5.5 on 06/08 per [facility]. Post Infusion Assessment: Patient tolerated infusion without incident. Blood return noted pre and post infusion. Site patent and intact, free from redness, edema or discomfort. No evidence of extravasations. Access discontinued per protocol. Discharge Plan: Discharge instructions reviewed with: Patient and Family. Patient and/or family verbalized understanding of discharge instructions and all questions answered. Patient discharged in stable condition accompanied by: . Departure Mode: Ambulatory. Aleyda Loera RN CE SHIFT COMMANDER documented in this encounter Plan of Treatment Not on filedocumented as of this encounter Procedures Procedure Name Priority Date/Time Associated Diagnosis Comme nts TRANSFUSE RED BLOOD Routine 06/14/2019 11:05 AM Myeloprolifera tive disorder CELL UNIT POLICE SHIFT COMMANDER (H) TRANSFUSE RED BLOOD Routine 06/14/2019 9:35 AM Myeloproliferat otoniel disorder CELL UNIT POLICE SHIFT COMMANDER (H) documented in this encounter Results Transfuse red blood cell unit (06/14/2019 12:26 PM POLICE SHIFT COMMANDER) [facility] Sharp NP IP NURSING BLOOD ADMINISTRAT ON Transfuse red blood cell unit (06/14/2019 12:26 PM POLICE SHIFT COMMANDER) [place] Autumn Aron CASING TIER IP NURSING BLOOD ADMINISTRAT ON Transfuse red blood cell unit (06/14/2019 11:03 AM POLICE SHIFT COMMANDER) India Sharp [facility] IP NURSING BLOOD ADMINISTRAT ON ABO/Rh type and screen (06/13/2019 10:10 AM POLICE SHIFT COMMANDER) [facility] Method Time Signature Units Ordered 2 06/13/2019 [facility] 11:17 AM [facility] ABO A 06/13/2019 [facility] 11:11 AM [facility] RH(D) Pos [facility] Antibody Neg 06/13/2019 [facility] Screen 11:11 AM [facility] Test Valid [place] 06/13/2019 [facility] Only At [facility] 11:17 AM [facility] HOSPITAL Specimen 06/16/2019 06/13/2019 [facility] Expires 11:17 AM [facility] Crossmatch Red Blood 06/13/2019 [facility] Cells 11:17 AM [facility] Specimen Anatomical Collection Method Collection Time Receive d Time (Source) Location / / Volume Laterality Blood specimen 06/13/2019 10:10 9 (specimen) AM POLICE SHIFT COMMANDER 10:14 AM POLICE SHIFT COMMANDER India Sharp [facility] LAB - BLOOD BANK TEST ORDER Performing Organization Address City/State/ZIP Code Phon e Number [place] [address] [address] [place] [address] [facility] [address] [phone] documented in this encounter Visit Diagnoses Diagnosis 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
--- OUTSIDE RECORDS SUMMARY | 2022-05-02 12:16 | XMS_ITS | Encounter Summary ---
:1970 Author Organization [facility] Address [address] [place] [address] Care Team Providers Name Role Phone No Ref-Primary, Physician Primary Care Provider [phone] Candida Epps MD Unavailable Shala Bell RN Unavailable Unavailable Encounter Details Date Type Department Care Team Description 07/05/2019 Travel Social History Tobacco Use Types Packs/Day [...] on filedocumented in this encounter Care Teams Histology Technician Relationship Specialty Start Date End Date No Ref-Primary, PCP - General 09/30/17 Physician Candida Epps MD MD Internal Medicine 01/15/[address] [place] [address] [address] [place] [address] Shala Bell, HELENE Specialty Care Hematology & Oncology 01/15/19 07/23/21 Coordinator documented as of this encounter
--- OUTSIDE RECORDS SUMMARY | 2022-05-02 12:16 | XMS_ITS | Encounter Summary ---
:1970 Author Organization [facility] Address [address] [place] [address] Care Team Providers Name Role Phone No Ref-Primary, Physician Primary Care Provider [phone] Candida Epps MD Unavailable Shala Bell RN Unavailable Unavailable Encounter Details Date Type Department Care Team Description 07/01/2019 Travel Social History Tobacco Use Types Packs/Day [...] on filedocumented in this encounter Care Teams Staple Shear Operator Relationship Specialty Start Date End Date No Ref-Primary, PCP - General 09/30/17 Physician Candida Epps MD MD Internal Medicine 01/15/[address] [place] [address] [address] [place] [address] Shala Bell, HELENE Specialty Care Hematology & Oncology 01/15/19 07/23/21 Coordinator documented as of this encounter
--- OUTSIDE RECORDS SUMMARY | 2022-05-02 12:16 | XMS_ITS | Encounter Summary ---
:1970 Author Organization [place] Address [address] [place] [address] Care Team Providers Name Role Phone No Ref-Primary, Physician Primary Care Provider [phone] Candida Epps MD Unavailable Shala Bell RN Unavailable Unavailable Encounter Details Date Type Department Care Team Description 05/19/2019 Travel Social History Tobacco Use Types Packs/Day [...] filedocumented in this encounter Care Teams Manager Rn Case Relationship Specialty Start Date End Date No Ref-Primary, PCP - General 09/30/17 Physician Candida Epps MD MD Internal Medicine 01/15/[address] [place] [address] [address] [place] [address] Shala Bell, HELENE Specialty Care Hematology & Oncology 01/15/19 07/23/21 Coordinator documented as of this encounter
--- OUTSIDE RECORDS SUMMARY | 2022-05-02 12:16 | XMS_ITS | Encounter Summary ---
:1970 Author Organization [facility] Address [address] [place] [address] Care Team Providers Name Role Phone No Ref-Primary, Physician Primary Care Provider [phone] Candida Epps MD Unavailable Shala Bell RN Unavailable Unavailable Encounter Details Date Type Department Care Team Description 07/02/2019 Travel Social History Tobacco Use Types Packs/Day [...] on filedocumented in this encounter Care Teams Butcher Head Relationship Specialty Start Date End Date No Ref-Primary, PCP - General 09/30/17 Physician Candida Epps MD MD Internal Medicine 01/15/[address] [place] [address] [address] [place] [address] Shala Bell, HELENE Specialty Care Hematology & Oncology 01/15/19 07/23/21 Coordinator documented as of this encounter
--- OUTSIDE RECORDS SUMMARY | 2022-05-02 12:16 | XMS_ITS | Encounter Summary ---
:1970 Author Organization [facility] Address [address] [place] [address] Care Team Providers Name Role Phone No Ref-Primary, Physician Primary Care Provider [phone] Candida Epps MD Unavailable Shala Bell RN Unavailable Unavailable Encounter Details Date Type Department Care Team Description 06/13/2019 Travel Social History Tobacco Use Types Packs/Day [...] on filedocumented in this encounter Care Teams Industrial Real Estate Agent Relationship Specialty Start Date End Date No Ref-Primary, PCP - General 09/30/17 Physician Candida Epps MD MD Internal Medicine 01/15/[address] [place] [address] [address] [place] [address] Shala Bell, HELENE Specialty Care Hematology & Oncology 01/15/19 07/23/21 Coordinator documented as of this encounter
--- OUTSIDE RECORDS SUMMARY | 2022-05-02 12:16 | XMS_ITS | Encounter Summary ---
:1970 Author Organization [place] Address [address] [place] [address] Care Team Providers Name Role Phone No Ref-Primary, Physician Primary Care Provider [phone] Candida Epps MD Unavailable Shala Bell RN Unavailable Unavailable Reason for Visit Reason Comments Blood Transfusion 1 unit prb c Encounter Details Date Type Department Care Team Description 07/01/2019 Infusion Therapy [facility] Dylon Cr Myelop roliferative Visit Cancer Center MD Chriss disorder (H) (Primary Dx) [facility] ONCOLOGY [facility] Medical Ctr [address] [facility] [address] [address] [place], [place] [address] [address] [place], [place] [phone] (Work) [phone] Social History Tobacco Use Types Packs/Day Years [...] Sign Reading Time Taken Comments Blood Pressure 119/73 07/01/2019 9:45 AM CLASS B DRIVER Pulse 83 07/01/2019 9:45 AM CLASS B DRIVER Temperature 36.5 ??C (97.7 ??F) 07/01/2019 9:45 AM CLASS B DRIVER Respiratory Rate 16 07/01/2019 8:45 AM CLASS B DRIVER Oxygen Saturation 97% 07/01/2019 9:45 AM CLASS B DRIVER Inhaled Oxygen Concentration - - Weight - - Height - - Body Mass Index - - documented in this encounter Progress Notes Clemencia Yusuf RN - 07/01/2019 8:00 AM CST Infusion Nursing Note: Jennifer Dobbs presents today for 1 unit prbc. Patient seen by provider today: No Author'S Agent present during visit today: Not Applicable. Note: N/A. Intravenous Access: Peripheral IV placed. Treatment Conditions: Blood transfusion consent signed 08/02/18. HGB 5 prior to transfusion 2 days ago Post Infusion Assessment: Patient tolerated infusion without incident. Blood return noted pre and post infusion. Site patent and intact, free from redness, edema or discomfort. No evidence of extravasations. Access discontinued per protocol. Discharge Plan: Discharge instructions reviewed with: Patient and Family. Patient and/or family verbalized understanding of discharge instructions and all questions answered. Patient discharged in stable condition accompanied by: self and . Departure Mode: Ambulatory. Clemencia Yusuf RN S B DRIVER documented in this encounter Plan of Treatment Not on filedocumented as of this encounter Procedures Procedure Name Priority Date/Time Associated Diagnosis Comme nts TRANSFUSE RED BLOOD Routine 07/01/2019 8:24 AM Myeloproliferat otoniel disorder CELL UNIT CLASS B DRIVER (H) documented in this encounter Results Transfuse red blood cell unit (07/01/2019 10:14 AM CLASS B DRIVER) Dylon Cr MD IP NURSING BLOOD ADMINISTRAT ON Transfuse red blood cell unit (07/01/2019 10:14 AM CLASS B DRIVER) Dylon Cr MD IP NURSING BLOOD ADMINISTRAT ON documented in this encounter Visit Diagnoses Diagnosis 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
--- OUTSIDE RECORDS SUMMARY | 2022-05-02 12:16 | XMS_ITS | Encounter Summary ---
:1970 Author Organization [facility] Address [address] [place] [address] Care Team Providers Name Role Phone No Ref-Primary, Physician Primary Care Provider [phone] Candida Epps MD Unavailable Shala Bell RN Unavailable Unavailable Encounter Details Date Type Department Care Team Description 08/04/2019 Travel Social History Tobacco Use Types Packs/Day [...] on filedocumented in this encounter Care Teams Supervisor Speech Relationship Specialty Start Date End Date No Ref-Primary, PCP - General 09/30/17 Physician Candida Epps MD MD Internal Medicine 01/15/[address] [place] [address] 480 [place] [address] Shala Bell, HELENE Specialty Care Hematology & Oncology 01/15/19 07/23/21 Coordinator documented as of this encounter
--- OUTSIDE RECORDS SUMMARY | 2022-05-02 12:16 | XMS_ITS | Encounter Summary ---
:1970 Author Organization [facility] Address [address] [place] [address] Care Team Providers Name Role Phone No Ref-Primary, Physician Primary Care Provider [phone] Candida Epps MD Unavailable Shala Bell RN Unavailable Unavailable Encounter Details Date Type Department Care Team Description 05/19/2019 Hospital Encounter [facility] Dylon Cr [place] [facility] ONCOLOGY [address] [place] [address] [place] [address] (Wo rk) Social History Tobacco Use Types [...] Sign Reading Time Taken Comments Blood Pressure 137/75 05/19/2019 5:55 PM GAGGERMAN Pulse 80 05/19/2019 3:10 PM GAGGERMAN Temperature 36.3 ??C (97.4 ??F) 05/19/2019 5:55 PM GAGGERMAN Respiratory Rate 16 05/19/2019 5:55 PM GAGGERMAN Oxygen Saturation 100% 05/19/2019 5:55 PM GAGGERMAN Inhaled Oxygen Concentration - - Weight - [...] HEARTBURN PO) documented as of this encounter Miscellaneous Notes Plan of Care - Silvina Cramer RN - 05/19/2019 6:21 PM CST A&Ox4 with VSS on RA. Pt received a total of 2 units of RBCs. Infusion completed with no reactions noted. Pt had small hematoma on left hand after removal of IV. Pressure applied until skin was flat, and pressure dressing applied. Pt sent home with ice. Pt informed to call 911 or return to hospital if hematoma increases or bleeding returns. ERMAN Plan of Care - Ebony Hare RN - 05/19/2019 2:48 PM CST Pt A&O x4, VSS on RA. Pt states to feel weak and has more difficulty with deep breathing. Saturation on RA 95 % , put her on 2 L of O2 for comfort. Hgb 5.1 and pt should be receiving 2 Units of RBC. IV site in left hand, patent, 1 Unit of RBC infusing @ 125 ml/hr. Pt tolerating well. Regular diet. ERMAN documented in this encounter Plan of Treatment Not on filedocumented as of this encounter Procedures Procedure Name Priority Date/Time Associated Diagnosis Comme nts TRANSFUSE RED BLOOD Routine 05/19/2019 3:45 PM CELL UNIT GAGGERMAN TRANSFUSE RED BLOOD Routine 05/19/2019 12:45 PM CELL UNIT GAGGERMAN BLOOD COMPONENT Routine 05/19/2019 11:29 AM Resul ts for this GAGGERMAN procedure are i n the results section. BLOOD COMPONENT Routine 05/19/2019 11:29 AM Resul ts for this GAGGERMAN procedure are i n the results section. BLOOD COMPONENT Routine 05/19/2019 11:29 AM Resul ts for this GAGGERMAN procedure are i n the results section. ABO/RH TYPE AND STAT 05/19/2019 11:29 AM Resul ts for this SCREEN GAGGERMAN procedure are i n the results section. documented in this encounter Results Transfuse red blood cell unit (05/19/2019 8:33 PM GAGGERMAN) Dylon Cr MD IP NURSING BLOOD ADMINISTRAT ON Transfuse red blood cell unit (05/19/2019 8:33 PM GAGGERMAN) Dylon Cr MD IP NURSING BLOOD ADMINISTRAT ON Transfuse red blood cell unit (05/19/2019 5:59 PM GAGGERMAN) Dylon Cr MD IP NURSING BLOOD ADMINISTRAT ON Blood component (05/19/2019 11:29 AM GAGGERMAN) [facility] Method Time Signature Unit Number [id number] 05/19/2019 [facility] 12:19 PM [facility] Blood Red Blood Cells 05/19/2019 [place] Component LeukoReduced 12:19 PM [facility] Type Irradiated [facility] Division 00 05/19/2019 [facility] Number 12:19 PM [facility] Status of Released to care 05/19/2019 [facility] Unit unit 11:55 PM [facility] Blood Product [id number] 05/19/2019 [facility] Code 12:19 PM [facility] Unit Status [facility] Specimen Anatomical Collection Method Collection Time Receive d Time (Source) Location / / Volume Laterality 05/19/2019 11:29 05/19/2019 AM GAGGERMAN 11:32 AM GAGGERMAN Dylon Cr MD LABORATORY Performing Organization Address City/State/ZIP Code Phon e Number M [facility] [address] [address] [facility] [address] [address], [place] [phone] Blood component (05/19/2019 11:29 AM GAGGERMAN) [facility] gist Method Time Signature Unit Number [id number] 05/19/2019 [facility] 12:16 PM [facility] Blood Red Blood Cells 05/19/2019 [facility] Component LeukoReduced 12:16 PM [facility] Type Irradiated [facility] Division 00 05/19/2019 [facility] Number 12:16 PM [facility] Status of Released to care 05/19/2019 [facility] Unit unit 11:55 PM [facility] Blood Product [id number] 05/19/2019 [facility] Code 12:16 PM [facility] Unit Status [facility] Specimen Anatomical Collection Method Collection Time Receive d Time (Source) Location / / Volume Laterality 05/19/2019 11:29 05/19/2019 AM G[facility]GER[facility] 11:32 AM GAGGERMAN Dylon Cr MD LABORATORY Performing Organization Address City/State/ZIP Code Phon e Number [facility] [address] [place] [address] [facility] [address] [place] [address], [place] [phone] Blood component (05/19/2019 11:29 AM GAGGERMAN) [facility] [employer] Method Time Signature Unit Number [id number] 05/19/2019 [facility] 12:16 PM [facility] Blood Red Blood Cells 05/19/2019 [facility] Component LeukoReduced 12:16 PM [facility] Irradiated [facility] Division 00 05/19/2019 [facility] Number 12:16 PM [facility] Status of No longer 05/19/2019 [facility] Unit available 12:20 PM [facility] 05/19/2019 1220 [facility] Blood Product [id number] 05/19/2019 [facility] Code 12:16 PM [facility] Unit Status [facility] Specimen Anatomical Collection Method Collection Time Receive d Time (Source) Location / / Volume Laterality 05/19/2019 11:29 05/19/2019 AM GAGGER[facility] 11:32 AM GAGGERMAN Dylon Cr MD LABORATORY Performing Organization Address City/State/ZIP Code Phon e Number [facility] [address] [address] [facility] [address] [address], [place] [phone] ABO/Rh type and screen (05/19/2019 11:29 AM GAGGERMAN) [facility] gist Method Time Signature Units Ordered 2 05/19/2019 [facility] 11:43 AM [facility] ABO A 05/19/2019 [facility] 12:[address] [facility] RH(D) Pos [facility] Antibody Neg 05/19/2019 [facility] Screen 12:13 PM [facility] Test Valid [facility] 05/19/2019 [facility] Only At [facility] 11:43 AM [facility] Specimen 05/22/2019 05/19/2019 [facility] Expires 11:43 AM [facility] Crossmatch Red Blood 05/19/2019 [facility] Cells 11:43 AM [facility] Specimen Anatomical Collection Method Collection Time Receive d Time (Source) Location / / Volume Laterality Blood specimen 05/19/2019 11:29 9 (specimen) AM GAGGERMAN 11:32 AM GAGGERMAN Dylon Cr MD LAB - BLOOD BANK TEST ORDER Performing Organization Address City/State/ZIP Code Phon e Number [facility] [address] [address] [facility] [address] [address], [place] [phone] documented in this encounter Visit Diagnoses Not on filedocumented in this encounter Care Teams Senior Procurement Specialist Relationship Specialty Start Date End Date No Ref-Primary, PCP - General 09/30/17 Physician Candida Epps MD MD Internal Medicine 01/15/19 [address] [facility] [address] [place], [place] [address] Shala Bell, HELENE Specialty Care Hematology & Oncology 01/15/19 07/23/21 Coordinator documented as of this encounter
--- OUTSIDE RECORDS SUMMARY | 2022-05-02 12:16 | XMS_ITS | Encounter Summary ---
:1970 Author Organization [place] Address [facility] [place] [address] Care Team Providers Name Role Phone No Ref-Primary, Physician Primary Care Provider [phone] Candida Epps MD Unavailable Shala Bell RN Unavailable Unavailable Encounter Details Date Type Department Care Team Description 06/08/2019 Medical Correspondence [facility] [place] Scan, BLOOD/PLATELET/PLAS Health Info Mgmt Non-Provider [place] ORDER FA [facility] [address] [place] [address] Social History Tobacco Use Types [...] filedocumented in this encounter Care Teams Supervisor Sewer System Relationship Specialty Start Date End Date No Ref-Primary, PCP - General 09/30/17 Physician Candida Epps MD MD Internal Medicine 01/15/[address] [facility] [address] [place] [address] Shala Bell, HELENE Specialty Care Hematology & Oncology 01/15/19 07/23/21 Coordinator documented as of this encounter
--- OUTSIDE RECORDS SUMMARY | 2022-05-02 12:16 | XMS_ITS | Encounter Summary ---
:1970 Author Organization [facility] Address [address] [place] [address] Care Team Providers Name Role Phone No Ref-Primary, Physician Primary Care Provider [phone] Candida Epps MD Unavailable Shala Bell RN Unavailable Unavailable Encounter Details Date Type Department Care Team Description 06/14/2019 Travel Social History Tobacco Use Types Packs/Day [...] on filedocumented in this encounter Care Teams Lathe Scalper Operator Relationship Specialty Start Date End Date No Ref-Primary, PCP - General 09/30/17 Physician Candida Epps MD MD Internal Medicine 01/15/[address] [place] [address] [address] [place] [address] Shala Bell, HELENE Specialty Care Hematology & Oncology 01/15/19 07/23/21 Coordinator documented as of this encounter
--- OUTSIDE RECORDS SUMMARY | 2022-05-02 12:16 | XMS_ITS | Encounter Summary ---
:1970 Author Organization [place] Address [address] [facility] [place] [address] Care Team Providers Name Role Phone No Ref-Primary, Physician Primary Care Provider [phone] Candida Epps MD Unavailable Shala Bell RN Unavailable Unavailable Encounter Details Date Type Department Care Team Description 07/02/2019 Orders Only [facility] Sleep Nasim Turner MD Hypoxemia (Primary Dx) [facility] [address] [place], [place] [address] [facility] [address] [place] [address] [id number] Social History Tobacco Use Types Packs/Day Years [...] on filedocumented as of this encounter Results Overnight oximetry study (09/06/2019) Narrative This result has an attachment that is no t available. Rodrick Turner MD IP RESPIRATORY CARE documented in this encounter Visit Diagnoses Diagnosis Hypoxemia - Primary documented in this encounter Care Teams Assistant Import Manager Relationship Specialty Start Date End Date No Ref-Primary, PCP - General 09/30/17 Physician Candida Epps MD MD Internal Medicine 01/15/[address] [place] [address] 480 [place] [address] Shala Bell, HELENE Specialty Care Hematology & Oncology 01/15/19 07/23/21 Coordinator documented as of this encounter
--- OUTSIDE RECORDS SUMMARY | 2022-05-02 12:17 | XMS_ITS | Encounter Summary ---
:1970 Author Organization [place] Address [address] [place] [address] Care Team Providers Name Role Phone No Ref-Primary, Physician Primary Care Provider [phone] Candida Epps MD Unavailable Shala Bell RN Unavailable Unavailable Reason for Visit Reason Comments Blood Draw ABO Encounter Details Date Type Department Care Team Description 04/27/2019 Orders Only [facility] Dylon Cr Myeloproli [facility] MD Chriss disorder (H) [facility] ONCOLOGY [facility] Medical Ctr [address] [facility] [place] [address] [place], [place] [address] [place], [place] [phone] [address] (Work) [phone] Social History Tobacco Use Types Packs/Day Years Used Date Smoking Tobacco: Former Cigarettes Quit : 09/27/2012 Smokeless Tobacco: Never Comments: quit September 27, 2012 Alcohol Use Standard Drinks/Week Comments Yes 0 (1 standard drink = 0.6 oz pure alcoho l) 1 drink per week Sex Assigned at Date Recorded Not on file documented as of this encounter Progress Notes Michelle Potts RN - 04/27/2019 9:30 AM CDT Nursing Note: Jennifer Dobbs presents today for ABO. Patient seen by provider today: No Chief Technician X Ray present during visit today: Not Applicable. Note: Took several sticks for successful blood draw. Final blood draw was done with 22g PIV which infiltrated upon flushing, so was removed. Will need PIV placed upon arrival. Patient agrees to hydratewell before returning this afternoon for transfusion. Intravenous Access: Lab draw site L forearm, Needle type angiocath, Gauge 22. Difficult stick. Discharge Plan: Patient was sent to home, will return for 2pm transfusion appointment. Michelle Potts, RN documented in this encounter Plan of Treatment Not on filedocumented as of this encounter Procedures Procedure Name Priority Date/Time Associated Diagnosis Comme nts BLOOD COMPONENT Routine 04/27/2019 9:25 Myeloproliferative Res ults for this AM CDT disorder (H) procedure are i n the results section. ABO/RH TYPE AND Routine 04/27/2019 9:25 Myeloproliferative Res ults for this SCREEN AM CDT disorder (H) procedure are i n the results section. documented in this encounter Results Blood component (04/27/2019 9:25 AM CDT) [facility] Method Time Signature Unit Number [id number] [facility] Blood Red Blood Cells 04/27/2019 [facility] Component LeukoReduced 10:42 AM [facility] Irradiated [facility] Division 00 04/27/2019 [facility] Number 10:42 AM [facility] Status of Released to care 04/27/2019 [place] Unit unit 11:52 PM [facility] Blood Product [id number] 04/27/2019 [facility] Code 10:42 AM [facility] Unit Status ISS [facility] Specimen Anatomical Collection Method Collection Time Receive d Time (Source) Location / / Volume Laterality 04/27/2019 9:25 AM 9 9:53 CDT AM CDT Dylon Cr MD LABORATORY Performing Organization Address City/State/ZIP Code Phon e Number [facility] [address], [place] [address] [facility] [address] [place], [place] [address] [phone] ABO/Rh type and screen (04/27/2019 9:25 AM CDT) Patholo gist Method Time Signature Units Ordered 1 04/27/2019 [place] 10:42 AM [facility] ABO A 04/27/2019 [place] 12:11 PM [facility] RH(D) Pos [facility] Antibody Neg 04/27/2019 [place] Screen 12:11 PM [facility] Test Valid [place] 04/27/2019 [place] Only At [facility] 10:42 AM [facility] Specimen 04/30/2019 04/27/2019 [facility] Expires 10:42 AM [facility] Crossmatch Red Blood 04/27/2019 [place] Cells 10:42 AM [facility] Specimen Anatomical Collection Method Collection Time Receive d Time (Source) Location / / Volume Laterality Blood specimen 04/27/2019 9:25 AM 019 9:53 (specimen) CDT AM CDT Dylon Cr MD LAB - BLOOD BANK TEST ORDER Performing Organization Address City/State/ZIP Code Phon e Number [facility] [address] [place] [address] 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
--- OUTSIDE RECORDS SUMMARY | 2022-05-02 12:17 | XMS_ITS | Encounter Summary ---
:1970 Author Organization [place] Address [address] [place] [address] Care Team Providers Name Role Phone No Ref-Primary, Physician Primary Care Provider [phone] Candida Epps MD Unavailable Shala Bell RN Unavailable Unavailable Encounter Details Date Type Department Care Team Description 04/06/2019 Travel Social History Tobacco Use Types Packs/Day [...] on filedocumented in this encounter Care Teams Loader Engineer Relationship Specialty Start Date End Date No Ref-Primary, PCP - General 09/30/17 Physician Candida Epps MD MD Internal Medicine 01/15/[address] [place] [address] [address] [place] [address] Shala Bell, HELENE Specialty Care Hematology & Oncology 01/15/19 07/23/21 Coordinator documented as of this encounter
--- OUTSIDE RECORDS SUMMARY | 2022-05-02 12:17 | XMS_ITS | Encounter Summary ---
:1970 Author Organization [place] Address [address] [place] [address] Care Team Providers Name Role Phone No Ref-Primary, Physician Primary Care Provider [phone] Candida Epps MD Unavailable Shala Blel RN Unavailable Unavailable Reason for Referral Diagnostic Imaging NM (Routine) - Closed Specialty Diagnoses / Procedures Referred By Contact Refer red To Contact Cardiology Diagnoses Pre-operative cardiovascular examination SOB (shortness of breath) ROCHE (dyspnea on exertion) Ronaldo Cheatham MD Cardiac Services Procedures NM Lexiscan stress test (nuc card) [address] [facility] [address] [address] Phone: Referral ID Status Reason Start Date Expiration Date Visits Requ ested Visits Authorized [id number] Closed 03/10/2019 03/09/2020 5 5 Reason for Visit Diagnostic Imaging NM (Routine) - Closed Specialty Diagnoses / Procedures Referred By Contact Refer red To Contact Cardiology Diagnoses Pre-operative cardiovascular examination SOB (shortness of breath) ROCHE (dyspnea on exertion) Ronaldo Cheatham MD Cardiac Services Procedures NM Lexiscan stress test (nuc card) [address] [place] [address] [facility] [address] [place] [id number] 5 [place] [address] Phone: Referral ID Status Reason Start Date Expiration Date Visits Requ ested Visits Authorized [id number] Closed 03/10/2019 03/09/2020 5 5 Encounter Details Date Type Department Care Team Description 2019 [facility] Ronaldo Pre- operative cardiovascular examination; [facility] Imaging MD Robert SOB (shortness of breath); [address] [place] [address] ROCHE (dyspnea on exertion) [facility] [address] [place], [place] [phone] [address] Social History Tobacco Use Types Packs/Day Years [...] Name Priority Date/Time Associated Diagnosis Comme nts NM MPI WITH Routine 2019 11:34 Pre-operative Results fo r this LEXISCAN AM CDT cardiovascular procedure are in examination the results SOB (shortness of section. breath) ROCHE (dyspnea on exertion) documented in this encounter Results NM Lexiscan stress test (nuc card) (2019 11:34 AM CDT) Anatomical Region Laterality Modality Chest Nuclear Medicine Specimen (Source) Anatomical Location Collection Method / Collectio n Time Received Time / Laterality Volume Impressions 2019 12:57 PM CDT IMPRESSION: 1. ??Normal ??myocardial SPECT study wit h a summed stress score of ??1 . No ischemia or infarct identified. Kiley l LV function. MITRA MUJICA MD Narrative 2019 12:57 PM CDT INDICATION: ROCHE. PROTOCOL: ?? Rest and stress myocardial perfusion angeline ging was performed using Tc-99m tetrafosmin intravenously. Pharma cological stress was performed with 0.4 mg of regadenoson intravenously . The EKG showed normal sinus rhythm at rest. No significant abnormali ties were noted with infusion of regadenoson. FINDINGS: 1. ??Overall quality of the study: Diagn ostic. 2. ??Left ventricular cavity is Normal o n the rest and stress studies. 3. ??SPECT images demonstrate uniform ra diotracer uptake of the myocardium on both stress and rest image s. 4. ??Left ventricular ejection fraction is 71%. Left ventricular end-diastolic volume is 175 mL. End-syst olic volume is 51 mL. Procedure Note Suhas Mujica MD - 2019Forma tting of this note might be different from the original. INDICATION: ROCHE. PROTOCOL: Rest and stress myocardial perfusion angeline ging was performed using Tc-99m tetrafosmin intravenously. Pharma cological stress was performed with 0.4 mg of regadenoson intravenously . The EKG showed normal sinus rhythm at rest. No significant abnormali ties were noted with infusion of regadenoson. FINDINGS: 1. Overall quality of the study: Diagnos tic. 2. Left ventricular cavity is Normal on the rest and stress studies. 3. SPECT images demonstrate uniform radi otracer uptake of the myocardium on both stress and rest image s. 4. Left ventricular ejection fraction is 71%. Left ventricular end-diastolic volume is 175 mL. End-syst olic volume is 51 mL. IMPRESSION: 1. Normal myocardial SPECT study with a summed stress score of 1 . No ischemia or infarct identified. Kiley l LV function. MITRA MUJICA MD Ronaldo Cheatham MD IMG NM ORDERABLES documented in this encounter Visit Diagnoses Diagnosis Pre-operative cardiovascular examination SOB (shortness of breath) Shortness of breath ROCHE (dyspnea on exertion) Other dyspnea and respiratory abnormalit y documented in this encounter Administered Medications Inactive Administered Medications - up to 3 most recent administrations Medication Order MAR Action Action Date Dose Rate Site technetium Tc 99m tetrofosmin Given by Other 2019 11:22 AM 24.7 mCi 2UD study (MYOVIEW) CDT radioisotope injection 3-42 mCi 3-42 mCi, Intravenous, 2 TIMES DAILY PRN, 2 Myoview rest/stress doses at varying times, Starting on Fri03/17/19 at 0905, For 2 doses Given 2019 9:19 AM CDT 8.5 mCi documented in this encounter Care Teams Hopper Operator Relationship Specialty Start Date End Date No Ref-Primary, PCP - General 09/30/17 Physician Candida Epps MD MD Internal Medicine 01/15/[address] [place] [address] Shala Bell, HELENE Specialty Care Hematology & Oncology 01/15/19 07/23/21 Coordinator documented as of this encounter
--- OUTSIDE RECORDS SUMMARY | 2022-05-02 12:17 | XMS_ITS | Encounter Summary ---
:1970 Author Organization [place] Address [address] [place] [address] Care Team Providers Name Role Phone No Ref-Primary, Physician Primary Care Provider [phone] Candida Epps MD Unavailable Shala Bell RN Unavailable Unavailable Encounter Details Date Type Department Care Team Description 2019 Travel Social History Tobacco Use Types Packs/Day [...] on filedocumented in this encounter Care Teams Clinical Care Leader Relationship Specialty Start Date End Date No Ref-Primary, PCP - General 09/30/17 Physician Candida Epps MD MD Internal Medicine 01/15/[address] [place] [address] 480 [place] [address] Shala Bell, HELENE Specialty Care Hematology & Oncology 01/15/19 07/23/21 Coordinator documented as of this encounter
--- OUTSIDE RECORDS SUMMARY | 2022-05-02 12:17 | XMS_ITS | Encounter Summary ---
:1970 Author Organization [place] Address [address] [place] [address] Care Team Providers Name Role Phone No Ref-Primary, Physician Primary Care Provider [phone] Candida Epps MD Unavailable Shala Bell RN Unavailable Unavailable Encounter Details Date Type Department Care Team Description 03/12/2019 Travel Social History Tobacco Use Types Packs/Day [...] on filedocumented in this encounter Care Teams Line Rider Relationship Specialty Start Date End Date No Ref-Primary, PCP - General 09/30/17 Physician Candida Epps MD MD Internal Medicine 01/15/[address] [place] [address] 480 [place] [address] Shala Bell, HELENE Specialty Care Hematology & Oncology 01/15/19 07/23/21 Coordinator documented as of this encounter
--- OUTSIDE RECORDS SUMMARY | 2022-05-02 12:17 | XMS_ITS | Encounter Summary ---
:1970 Author Organization [place] Address [address] [place] [address] Care Team Providers Name Role Phone No Ref-Primary, Physician Primary Care Provider [phone] Candida Epps MD Unavailable Shala Bell RN Unavailable Unavailable Encounter Details Date Type Department Care Team Description 04/06/2019 [facility] Dylon Cr Myeloproli ferative Encounter [facility] Laboratory MD Chriss disorder (H) [address] [place], [place] [address] [place] [address] [place], [place] [phone] [address] Social History Tobacco Use Types Packs/Day [...] Associated Diagnosis Comme nts BLOOD COMPONENT Routine 04/06/2019 2:29 Myeloproliferative Res ults for this PM CDT disorder (H) procedure are i n the results section. ABO/RH TYPE AND Routine 04/06/2019 2:29 Myeloproliferative Res ults for this SCREEN PM CDT disorder (H) procedure are i n the results section. documented in this encounter Results Blood component (04/06/2019 2:29 PM CDT) [facility] Time Signature Unit Number [id number] [facility]/06/2019 [facility] Blood Red Blood Cells 04/06/2019 [place] Component LeukoReduced 6:07 PM [facility] Irradiated HOSPITAL Division 00 04/06/2019 [facility] Number 6:07 PM [facility] Status of Released to care 04/07/2019 [place] Unit unit 11:52 PM [facility] Blood Product [id number] 04/06/2019 [facility] Code 6:07 PM [facility] Unit Status ISS [facility] Specimen Anatomical Collection Method Collection Time Receive d Time (Source) Location / / Volume Laterality 04/06/2019 2:29 PM 9 2:30 CDT PM CDT Dylon Cr MD LABORATORY Performing Organization Address City/State/ZIP Code Phon e Number [facility] [address] [place], [place] [address] [facility]OS[facility] [address] [place], [place] [address] [phone] ABO/Rh type and screen (04/06/2019 2:29 PM CDT) [facility] Novint Method Time Signature Units Ordered 1 04/06/2019 [facility] 3:44 PM [facility] ABO A 04/06/2019 [place] 3:43 PM [facility] RH(D) Pos [facility] Antibody Neg 04/06/2019 [place] Screen 5:32 PM [facility] Test Valid [place] 04/06/2019 [facility] Only At [facility] 3:44 PM [facility] Specimen 04/09/2019 04/06/2019 [facility] Expires 3:44 PM [facility] Specimen Anatomical Collection Method Collection Time Receive d Time (Source) Location / / Volume Laterality Blood specimen 04/06/2019 2:29 PM 019 2:30 (specimen) CDT PM CDT Dylon Cr MD LAB - BLOOD BANK TEST ORDER Performing Organization Address City/State/ZIP Code Phon e Number [facility] [address] [place] [address] [facility] [address] [phone] documented in this encounter 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
--- OUTSIDE RECORDS SUMMARY | 2022-05-02 12:17 | XMS_ITS | Encounter Summary ---
:1970 Author Organization [place] Address [address] [place] [address] Care Team Providers Name Role Phone No Ref-Primary, Physician Primary Care Provider [phone] Candida Epps MD Unavailable Shala Bell RN Unavailable Unavailable Reason for Visit Reason Comments Blood Transfusion 1 unit PRBC's Encounter Details Date Type Department Care Team Description 04/27/2019 Infusion Therapy [facility] Dylon Cr Myelop roliferative Visit Cancer Center MD Chriss disorder (H) (Primary Dx) [facility] ONCOLOGY [facility] Medical Ctr [address] [facility] [place] [address] [place], [place] [address] [place], [place] [phone] [address] (Work) [phone] Social History Tobacco Use Types Packs/Day Years [...] Sign Reading Time Taken Comments Blood Pressure 117/60 04/27/2019 3:42 PM CDT Pulse 75 04/27/2019 3:42 PM CDT Temperature 37.2 ??C (99 ??F) 04/27/2019 3:42 PM CDT Respiratory Rate 16 04/27/2019 2:12 PM CDT Oxygen Saturation 96% 04/27/2019 3:42 PM CDT Inhaled Oxygen Concentration - - Weight - - Height - - Body Mass Index - - documented in this encounter Progress Notes Fatuma Amador, RN - 04/27/2019 2:00 PM CDT Infusion Nursing Note: Jennifer Dobbs presents today for 1 unit PRBC's. Patient seen by provider today: No Fur Cutting Machine Operator present during visit today: Not Applicable. Note: Has c/o fatigue, SOB and chest tightness when she is low on blood. Intravenous Access: Peripheral IV placed. Treatment Conditions: Blood transfusion consent signed 08/02/18. Post Infusion Assessment: Patient tolerated infusion without incident. Blood return noted pre and post infusion. Site patent and intact, free from redness, edema or discomfort. No evidence of extravasations. Access discontinued per protocol. Discharge Plan: Discharge instructions reviewed with: Patient. Patient discharged in stable condition accompanied by: . Departure Mode: Ambulatory. 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
--- OUTSIDE RECORDS SUMMARY | 2022-05-02 12:17 | XMS_ITS | Encounter Summary ---
:1970 Author Organization [place] Address [address] [place] [address] Care Team Providers Name Role Phone No Ref-Primary, Physician Primary Care Provider [phone] Candida Epps MD Unavailable Shala Bell RN Unavailable Unavailable Reason for Visit Reason Onset Date Comments Call To Schedule Appointment 04/22/2019 Encounter Details Date Type Department Care Team Description 04/22/[address] [facility] Nury Khan , Call To Schedule Clinic Dianne Hernandez RN Appointment [address] [phone] [place], [place] (Work) [address] Social History Tobacco Use Types Packs/Day Years Used Date Smoking Tobacco: Former Cigarettes Quit : 09/27/2012 Smokeless Tobacco: Never Comments: quit September 27, 2012 Alcohol Use Standard Drinks/Week Comments Yes 0 (1 standard drink = 0.6 oz pure alcoho l) 1 drink per week Sex Assigned at Date Recorded Not on file documented as of this encounter Miscellaneous Notes Telephone Encounter - Nury Khan, RN - 04/22/2019 11:[address] Cheatham had received call from Dr Dylon Cr at [facility] ([phone]). 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 Procedural surgery scheduler attempted to call patient at numbers in chart. Received these messages-- [04/22/2019 10:53 AM] Denita Clemente: Unable to reach her, recording states The service you are trying to use is restricted or unavailable. Please call customer service for assistance. [04/22/2019 10:55 AM] Denita Clemente: I also called the spouse's cell phone, the recording stated the person you are trying to call is not accepting calls at this time. Called [facility], spoke with staff, they had one additional [phone] which was the voicemail of a Yesi Hughes. Dr Cheatham notified, will send letter asking patient to call us. DBaHELENE ruano documented in 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 Care Teams High Worker Relationship Specialty Start Date End Date No Ref-Primary, PCP - General 09/30/17 Physician Candida Epps MD MD Internal Medicine 01/15/[address] [place] [address] Shala Bell, HELENE Specialty Care Hematology & Oncology 01/15/19 07/23/21 Coordinator documented as of this encounter
--- OUTSIDE RECORDS SUMMARY | 2022-05-02 12:17 | XMS_ITS | Encounter Summary ---
:1970 Author Organization [facility] Address [address] [place] [address] Care Team Providers Name Role Phone No Ref-Primary, Physician Primary Care Provider [phone] Candida Epps MD Unavailable Shala Bell RN Unavailable Unavailable Encounter Details Date Type Department Care Team Description 04/27/2019 Travel Social History Tobacco Use Types Packs/Day [...] on filedocumented in this encounter Care Teams Product Controller Relationship Specialty Start Date End Date No Ref-Primary, PCP - General 09/30/17 Physician Candida Epps MD MD Internal Medicine 01/15/[address] [place] [address] 480 [place] [address] Shala Bell, HELENE Specialty Care Hematology & Oncology 01/15/19 07/23/21 Coordinator documented as of this encounter
--- OUTSIDE RECORDS SUMMARY | 2022-05-02 12:17 | XMS_ITS | Encounter Summary ---
:1970 Author Organization [address] [place] [address] Care Team Providers Name Role Phone No Ref-Primary, Physician Primary Care Provider [phone] Candida Epps MD Unavailable Shala Bell RN Unavailable Unavailable Encounter Details Date Type Department Care Team Description 04/05/2019 Medical Correspondence [facility] [place] Scan, BLOOD/PLATELET/PLAS Health Info Mgmt Non-Provider [place] ORDER FO RM Srvcs [address] [address] Social History Tobacco Use Types Packs/Day [...] on filedocumented in this encounter Care Teams Truck Repair Supervisor Relationship Specialty Start Date End Date No Ref-Primary, PCP - General 09/30/17 Physician Candida Epps MD MD Internal Medicine 01/15/19 420 [facility] 480 [place] [address] Shala Bell, HELENE Specialty Care Hematology & Oncology 01/15/19 07/23/21 Coordinator documented as of this encounter
--- OUTSIDE RECORDS SUMMARY | 2022-05-02 12:17 | XMS_ITS | Encounter Summary ---
:1970 Author Organization [facility] Address [address] [place] [address] Care Team Providers Name Role Phone No Ref-Primary, Physician Primary Care Provider [phone] Candida Epps MD Unavailable Shala Bell RN Unavailable Unavailable Reason for Visit Diagnostic Imaging NM (Routine) - Closed Specialty Diagnoses / Procedures Referred By Contact Refer red To Contact Cardiology Diagnoses Pre-operative cardiovascular examination SOB (shortness of breath) ROCHE (dyspnea on exertion) Ronaldo Cheatham MD Cardiac Services Procedures NM Lexiscan stress test (nuc card) [address] [address] 500 [place], [place] [address] 8 [place] [address] Phone: Referral ID Status Reason Start Date Expiration Date Visits Requ ested Visits Authorized [id number] Closed 03/10/2019 03/09/2020 5 5 Encounter Details Date Type Department Care Team Description 2019 Hospital Encounter [facility] Ronaldo Cheatham Imaging MD 500 [facility] [address] [address] [place], [place] [phone] (Wo rk) Social History Tobacco Use Types [...] or infarct identified. Kiley l LV function. MD SIL Ronaldo Cheatham MD IMG NM ORDERABLES documented in this encounter Visit Diagnoses Not on filedocumented in this encounter Care Teams Rigger Apprentice Relationship Specialty Start Date End Date No Ref-Primary, PCP - General 09/30/17 Physician Candida Epps MD MD Internal Medicine 01/15/[address] [place] [address] Shala Bell, HELENE Specialty Care Hematology & Oncology 01/15/19 07/23/21 Coordinator documented as of this encounter
--- OUTSIDE RECORDS SUMMARY | 2022-05-02 12:17 | XMS_ITS | Encounter Summary ---
:1970 Author Organization [facility] Address [address] [place] [address] Care Team Providers Name Role Phone No Ref-Primary, Physician Primary Care Provider Candida Epps MD Unavailable Shala Bell RN Unavailable Unavailable Encounter Details Date Type Department Care Team Description 04/27/2019 Hospital Encounter [facility] [address] , [facility] [address] [facility] [place], [place] [address] [facility] [address] [place] [address] [place], [place] [address] (Wo rk) Social History Tobacco Use Types [...] on filedocumented in this encounter Care Teams Palliative Care Physician Relationship Specialty Start Date End Date No Ref-Primary, PCP - General 09/30/17 Physician Candida Epps MD MD Internal Medicine 01/15/[address] [address] Shala Bell, HELENE Specialty Care Hematology & Oncology 01/15/19 07/23/21 Coordinator documented as of this encounter
--- OUTSIDE RECORDS SUMMARY | 2022-05-02 12:17 | XMS_ITS | Encounter Summary ---
:1970 Author Organization [place] [facility] Address [address] [place] [address] Care Team Providers Name Role Phone No Ref-Primary, Physician Primary Care Provider [phone] Candida Epps MD Unavailable Shala Bell RN Unavailable Unavailable Encounter Details Date Type Department Care Team Description 04/07/2019 Travel Social History Tobacco Use Types Packs/Day [...] on filedocumented in this encounter Care Teams Embedded Systems Software Developer Relationship Specialty Start Date End Date No Ref-Primary, PCP - General 09/30/17 Physician Candida Epps MD MD Internal Medicine 01/15/[address] [place] [address] 480 [place] [address] Shala Bell, HELENE Specialty Care Hematology & Oncology 01/15/19 07/23/21 Coordinator documented as of this encounter
--- OUTSIDE RECORDS SUMMARY | 2022-05-02 12:17 | XMS_ITS | Encounter Summary ---
:1970 Author Organization [place] Address [address] [place] [address] Care Team Providers Name Role Phone No Ref-Primary, Physician Primary Care Provider [phone] Candida Epps MD Unavailable Shala Bell RN Unavailable Unavailable Reason for Visit Diagnostic Imaging NM (Routine) - Closed Specialty Diagnoses / Procedures Referred By Contact Refer red To Contact Cardiology Diagnoses Pre-operative cardiovascular examination SOB (shortness of breath) ROCHE (dyspnea on exertion) Ronaldo Cheatham MD Cardiac Services Procedures NM Lexiscan stress test (nuc card) [address] [address] 500 [place], [place] [address] 4 [place] [address] Phone: Referral ID Status Reason Start Date Expiration Date Visits Requ ested Visits Authorized [id number] Closed 03/10/2019 03/09/2020 5 5 Encounter Details Date Type Department Care Team Description 2019 Hospital Encounter [facility] Ronaldo Cheatham Imaging MD 500 [facility] [address] [address] [place], [place] [phone] (Wo rk) Social History Tobacco Use [...] HEART[facility] PO) documented as of this encounter Progress Notes Asya Knight RN - 2019 10:28 AM CDT Pt here for Lexiscan nuclear stress test. Medication and side effects reviewed with patient. Lung sounds clear to auscultation bilaterally. Denied caffeine use. Lexiscan 0.4mg given over 10 seconds followed by 5cc NS flush. Complained of nausea and vomited several times. 50mg IV Aminophylline given with resolution of symptoms. Monitored post injection and then taken back to nuclear medicine via wheelchair for follow up imaging. documented in this encounter Plan of Treatment Not on filedocumented as of this encounter Procedures Procedure Name Priority Date/Time Associated Diagnosis Comme nts NM MPI WITH Routine 2019 11:34 Pre-operative Results fo r this LEXISCAN AM CDT cardiovascular procedure are in examination the results SOB (shortness of section. breath) ROCHE (dyspnea on exertion) documented in this encounter Visit Diagnoses Not on filedocumented in this encounter Administered Medications Inactive Administered Medications - up to 3 most recent administrations Medication Order MAR Action Action Date Dose Rate Site aminophylline 50-100 mg Given 2019 10:17 AM CDT 50 mg 50-100 mg, Intravenous, ONCE PRN, In the event of the following side effects if not dissipating by 5 minutes past completion of procedure, Starting on Fri03/17/19 at 0947, For 1 dose, Indications. - Angina Pectoris - Abdominal discomfort - Chest pain/severe chest discomfort - Dizziness/syncope - Dysgeusia (abnormal taste) - Dyspnea /wheezing - Dysrhythmia - Feeling Hot - Flushing - Headache - Hypotension - Nausea - Severe bronchospasms - Second and third degree heart block - ST Segment depression Slow IV push over 30-60 seconds. Do not exceed rate of 50 mg over 30 seconds. Maximum dose is 250 mg in 24 hours. Notify the procedural provider that aminophylline was administered and reason for administration If aminophylline is unavailable or in short supply, please administer caffeine. Vesicant., Cardiac Intra-procedure regadenoson (LEXISCAN) injection 0.4 mg Given 2019 10:14 AM CDT 0.4 mg 0.4 mg, Intravenous, ONCE, On Fri03/17/19 at 1000, For 1 dose, Push medication in through saline lock over 15 seconds. Follow medication with saline flush. To be given in procedure area., Cardiac Intra-procedure sodium chloride (PF) 0.9% PF flush 10 mL Given 2019 10:14 AM CDT 10 mLs 10 mL, Intravenous, EVERY 10 MIN PRN, other, for peripheral IV flush post IV meds, Starting on Fri03/17/19 at 0947, Cardiac Intra-procedure documented in this encounter Care Teams Railroad Car Repair Supervisor Relationship Specialty Start Date End Date No Ref-Primary, PCP - General 09/30/17 Physician Candida Epps MD MD Internal Medicine 01/15/[address] [place] [address] 227 [place] [address] Shala Bell, HELENE Specialty Care Hematology & Oncology 01/15/19 07/23/21 Coordinator documented as of this encounter
--- OUTSIDE RECORDS SUMMARY | 2022-05-02 12:17 | XMS_ITS | Encounter Summary ---
:1970 Author Organization [facility] Address [address] [place] [address] Care Team Providers Name Role Phone No Ref-Primary, Physician Primary Care Provider [phone] Candida Epps MD Unavailable Shala Bell RN Unavailable Unavailable Reason for Visit Reason Onset Date Comments Appointment 04/28/2019 Sleep Consult/Referr al Appointment 06/21/2019 Sleep Consult Encounter Details Date Type Department Care Team Description 04/28/2019 Telephone [facility] Ronaldo Cheatham, Eugenia ointment (Sleep [facility] Dianne LISA Consult/Referral); [address] Appointment (Sleep [address] Consult) [place] [address] (Wo rk) Social History Tobacco Use Types [...] this encounter Miscellaneous Notes Telephone Encounter - Denita Clemente - 06/21/2019 2:43 PM CST Returned Gian's call, requesting to schedule the Sleep Referral from Dr. Cheatham, consult to be completed before patient has surgery; lvm. Denita Clemente [facility] Adult Family Manager/Surg Spec [place] [phone] CE CHAIR ASSEMBLER Telephone Encounter - Denita Clemente - 04/28/2019 2:29 PM CDT Gardening Instructor attempted to reach the patient, hue at number in patient file. Need to schedule sleep consultfor pili so the patient can have surgery. Sleep Consult can be done Bk, Sherice or [place]. Denita Clemente [facility] Adult Family Manager/Surg Spec [place] [phone] documented in 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 Care Teams Field Support Engineer Relationship Specialty Start Date End Date No Ref-Primary, PCP - General 09/30/17 Physician Candida Epps MD MD Internal Medicine 01/15/[address] [place] [address] Shala Bell, HELENE Specialty Care Hematology & Oncology 01/15/19 07/23/21 Coordinator documented as of this encounter
--- OUTSIDE RECORDS SUMMARY | 2022-05-02 12:17 | XMS_ITS | Encounter Summary ---
:1970 Author Organization [facility] Address [address] [place] [address] Care Team Providers Name Role Phone No [...] NM Lexiscan stress test (nuc card) [address] [facility] 508 500 [place], [place] [address] 5 [place] [address] Phone: Referral ID Status Reason Start Date Expiration Date Visits Requ ested Visits Authorized [id number] Closed 03/10/2019 03/09/2020 5 5 Encounter Details Date Type Department Care Team Description 2019 Hospital Encounter [facility] Ronaldo Cheatham, [facility] Heart [address] [facility] Care [address] 500 [place] [address] [phone] Social History Tobacco Use Types Packs/Day Years [...] on filedocumented in this encounter Care Teams Associate Broker Relationship Specialty Start Date End Date No Ref-Primary, PCP - General 09/30/17 Physician Candida Epps MD MD Internal Medicine 01/15/[address] [place] [address] Shala Bell, HELENE Specialty Care Hematology & Oncology 01/15/19 07/23/21 Coordinator documented as of this encounter
--- OUTSIDE RECORDS SUMMARY | 2022-05-02 12:17 | XMS_ITS | Encounter Summary ---
:1970 Author Organization [address] [place] [address] Care Team Providers Name Role Phone No Ref-Primary, Physician Primary Care Provider [phone] Candida Epps MD Unavailable Shala Bell RN Unavailable Unavailable Encounter Details Date Type Department Care Team Description 04/22/2019 Medical Correspondence [facility] [place] Scan, BLOOD/PLATELET/PLAS Health Info Mgmt Non-Provider [place] ORDER FO RM Srvcs [address] [address] Social History Tobacco Use Types [...] on filedocumented in this encounter Care Teams Diver'S Tender Relationship Specialty Start Date End Date No Ref-Primary, PCP - General 09/30/17 Physician Candida Epps MD MD Internal Medicine 01/15/19 420 [facility] 480 [place] [address] Shala Bell, HELENE Specialty Care Hematology & Oncology 01/15/19 07/23/21 Coordinator documented as of this encounter
--- OUTSIDE RECORDS SUMMARY | 2022-05-02 12:18 | XMS_ITS | Encounter Summary ---
:1970 Author Organization [facility] Address [address] [place] [address] Care Team Providers Name Role Phone No Ref-Primary, Physician Primary Care Provider [phone] Candida Epps MD Unavailable Shala Bell RN Unavailable Unavailable Encounter Details Date Type Department Care Team Description 01/22/2019 Orders Only [facility] Alexys Epps MD [facility] [address] [facility] [place], [place] [phone] [place] [address] [place] [address] (Wo rk) Social History Tobacco Use Types [...] on filedocumented in this encounter Care Teams Rn On Site Relationship Specialty Start Date End Date No Ref-Primary, PCP - General 09/30/17 Physician Candida Epps MD MD Internal Medicine 01/15/[address] [place] [address] Shala Bell, RN Specialty Care Hematology & Oncology 01/15/19 07/23/21 Coordinator documented as of this encounter
--- OUTSIDE RECORDS SUMMARY | 2022-05-02 12:18 | XMS_ITS | Encounter Summary ---
:1970 Author Organization [facility] Address [address] [place] [address] Care Team Providers Name Role Phone No Ref-Primary, Physician Primary Care Provider [phone] Candida Epps MD Unavailable Shala Bell RN Unavailable Unavailable Reason for Visit CV Testing (Routine) - Closed Specialty Diagnoses / Procedures Referred By Contact Refer red To Contact Diagnoses Myeloproliferative disorder (H) Rey Majano MD Procedures Echocardiogram Complete HC TTE W/DOPPLER, COMPLETE HC ECHO COMPLETE W DOPPLER W CONTRAST HC ECHO COMPLETE W DOPPLER W/O CONTRAST HC IV PUSH SINGLE, INITIAL SUBSTANCE HC US GUIDE FOR PERICARDIOCENTESIS HC ECHO MYOCARD BX [facility] C INJECTION, PERFLUTREN LIPI D MICROSPHERES, PER ML HC STATISTIC IV PUSH SINGLE INITIAL SUBSTANCE [address] [place], [place] [address] Referral ID Status Reason Start Date Expiration Date Visits Requ ested Visits Authorized [id number] Closed 02/04/2019 02/04/2020 1 1 Encounter Details Date Type Department Care Team Description 03/10/2019 [facility]illary [facility] Cardiac Boaz Garcia Myeloprol iferative Procedure Services MD [place] disorder (H) [address] 420 [facility] [address] [place], [place] [address] Social History Tobacco Use Types Packs/Day Years [...] Priority Date/Time Associated Diagnosis Comme nts ECHO COMPLETE Routine 03/10/2019 8:31 AM Myeloproliferative Re sults for this CDT disorder (H) procedure are i n the results section. documented in this encounter Results ECHO COMPLETE (03/10/2019 8:31 AM CDT) Anatomical Region Laterality Modality Echocardiography Specimen (Source) Anatomical Collection Method Collection Time Re ceived Time Location / / Volume Laterality 03/10/2019 7:41 AM CDT Narrative 03/10/2019 9:23 AM CDT [id number]^BIRDIE^BOAZ^CONSTANTINE [facility] Diagnostic and Treamtent-3rd Floor [address] [place] [address] Name: JENNIFER MENDEZ : 1970 Study Date: 03/10/2019 07:41 AM Age: 48 yrs Gender: Female Patient Location: [facility] Reason For Study: Myeloproliferative dis order (H) Ordering Physician: BOAZ GARCIA Referring Physician: REY MAJANO Performed By: Rajani Edwards RDCS BSA: 2.1 m2 Height: 67 in Weight: 208 lb BP: 133/63 mmHg __ Procedure Echocardiogram with two-dimensional, col or and spectral Doppler performed. __ Interpretation Summary Left ventricular function, chamber size, wall motion, and wall thickness are normal.The EF is 55-60%. Left ventricular diastolic function is n ormal. Right ventricle is mildly dilated with n ormal function. No significant valve disease. Moderate pulmonary hypertension is prese nt with estimated PA systolic pressure of 55 mmHg. IVC diameter <2.1 cm collapsing >50% wit h sniff suggests a normal RA pressure of 3 mmHg. There is no prior study for direct amalia rison. __ Left Ventricle Left ventricular function, chamber size, wall motion, and wall thickness are normal.The EF is 55-60%. Left ventricula r diastolic function is normal. No regional wall motion abnormalities are s een. Right Ventricle Global right ventricular function is nor mal. Mild right ventricular dilation is present. Atria The right atria appears normal. Mild lef t atrial enlargement is present. The atrial septum is intact as assessed by c olor Doppler . Mitral Valve Mitral leaflet thickness is increased . Trace mitral insufficiency is present. Aortic Valve Aortic valve is normal in structure and function. The aortic valve is tricuspid. Tricuspid Valve The tricuspid valve is normal. Mild tric uspid insufficiency is present. Moderate pulmonary hypertension is prese nt. Right ventricular systolic pressure is 52mmHg above the right atria l pressure. Pulmonic Valve The pulmonic valve is normal. Vessels The thoracic aorta is normal. The aorta root is normal. IVC diameter <2.1 cm collapsing >50% with sniff suggests a no rmal RA pressure of 3 mmHg. PA not seen well but may be mildly dilated. Pericardium No pericardial effusion is present. Compared to Previous Study There is no prior study for direct amalia rison. Attestation I have personally viewed the imaging and agree with the interpretation and report as documented by the fellow, josi castro, and/or edited by me. __ MMode/2D Measurements & Calculations IVSd: 0.98 cm LVIDd: 5.7 cm LVIDs: 3.7 cm LVPWd: 1.0 cm FS: 35.0 % LV mass(C)d: 225.6 grams LV mass(C)dI: 109.7 grams/m2 Ao root diam: 2.9 cm asc Aorta Diam: 3.0 cm LVOT diam: 2.0 cm LVOT area: 3.2 cm2 LA Volume (BP): 81.0 ml LA Volume Index (BP): 39.3 ml/m2 RWT: 0.35 Doppler Measurements & Calculations MV E max miri: 117.0 cm/sec MV A max miri: 95.5 cm/sec MV E/A: 1.2 MV dec slope: 651.0 cm/sec2 MV dec time: 0.18 sec PA V2 max: 146.6 cm/sec PA max P.6 mmHg TR max miri: 362.0 cm/sec TR max P.4 mmHg E/E' av.7 Lateral E/e': 10.4 Medial E/e': 14.9 __ Report approved by: Inderjit Patterson MD on 03/10/2019 09:23 AM Procedure Note Inderjit Patterson MD - 03/10/2019 [id number]^BIRDIE^BOAZ^CONSTANTINE [facility] Diagnostic and Treamtent-3rd Floor [address] [place] [address] Name: JENNIFER MENDEZ : 1970 Study Date: 03/10/2019 07:41 AM Age: 48 yrs Gender: Female Patient Location: [facility] Reason For Study: Myeloproliferative dis order (H) Ordering Physician: BOAZ GARCIA Referring Physician: REY MAJANO Performed By: Rajani Edwards RDCS BSA: 2.1 m2 Height: 67 in Weight: 208 lb BP: 133/63 mmHg __ Procedure Echocardiogram with two-dimensional, col or and spectral Doppler performed. __ Interpretation Summary Left ventricular function, chamber size, wall motion, and wall thickness are normal.The EF is 55-60%. Left ventricular diastolic function is n ormal. Right ventricle is mildly dilated with n ormal function. No significant valve disease. Moderate pulmonary hypertension is prese nt with estimated PA systolic pressure of 55 mmHg. IVC diameter <2.1 cm collapsing >50% wit h sniff suggests a normal RA pressure of 3 mmHg. There is no prior study for direct amalia rison. __ Left Ventricle Left ventricular function, chamber size, wall motion, and wall thickness are normal.The EF is 55-60%. Left ventricula r diastolic function is normal. No regional wall motion abnormalities are s een. Right Ventricle Global right ventricular function is nor mal. Mild right ventricular dilation is present. Atria The right atria appears normal. Mild lef t atrial enlargement is present. The atrial septum is intact as assessed by c olor Doppler . Mitral Valve Mitral leaflet thickness is increased . Trace mitral insufficiency is present. Aortic Valve Aortic valve is normal in structure and function. The aortic valve is tricuspid. Tricuspid Valve The tricuspid valve is normal. Mild tric uspid insufficiency is present. Moderate pulmonary hypertension is prese nt. Right ventricular systolic pressure is 52mmHg above the right atria l pressure. Pulmonic Valve The pulmonic valve is normal. Vessels The thoracic aorta is normal. The aorta root is normal. IVC diameter <2.1 cm collapsing >50% with sniff suggests a no rmal RA pressure of 3 mmHg. PA not seen well but may be mildly dilated. Pericardium No pericardial effusion is present. Compared to Previous Study There is no prior study for direct amalia rison. Attestation I have personally viewed the imaging and agree with the interpretation and report as documented by the fellow, josi castro, and/or edited by me. __ MMode/2D Measurements & Calculations IVSd: 0.98 cm LVIDd: 5.7 cm LVIDs: 3.7 cm LVPWd: 1.0 cm FS: 35.0 % LV mass(C)d: 225.6 grams LV mass(C)dI: 109.7 grams/m2 Ao root diam: 2.9 cm asc Aorta Diam: 3.0 cm LVOT diam: 2.0 cm LVOT area: 3.2 cm2 LA Volume (BP): 81.0 ml LA Volume Index (BP): 39.3 ml/m2 RWT: 0.35 Doppler Measurements & Calculations MV E max miri: 117.0 cm/sec MV A max miri: 95.5 cm/sec MV E/A: 1.2 MV dec slope: 651.0 cm/sec2 MV dec time: 0.18 sec PA V2 max: 146.6 cm/sec PA max P.6 mmHg TR max miri: 362.0 cm/sec TR max P.4 mmHg E/E' av.7 Lateral E/e': 10.4 Medial E/e': 14.9 __ Report approved by: Inderjit Patterson MD on 03/10/2019 09:23 AM Boaz Garcia MD CV ECHO ORDERABLES documented in this encounter 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
--- OUTSIDE RECORDS SUMMARY | 2022-05-02 12:18 | XMS_ITS | Encounter Summary ---
:1970 Author Organization [place] Address [address] [place] [address] Care Team Providers Name Role Phone No Ref-Primary, Physician Primary Care Provider [phone] Candida Epps MD Unavailable Shala Bell RN Unavailable Unavailable Encounter Details Date Type Department Care Team Description 02/16/2019 [facility] Dylon Cr Myeloproli ferative Encounter [facility] Laboratory MD Chriss disorder (H) [address], [place] [address] [place] [address] [place], [place] [phone] [address] Social History Tobacco Use Types Packs/Day [...] Associated Diagnosis Comme nts BLOOD COMPONENT Routine 02/16/2019 1:40 Myeloproliferative Res ults for this PM CDT disorder (H) procedure are i n the results section. BLOOD COMPONENT Routine 02/16/2019 1:40 Myeloproliferative Res ults for this PM CDT disorder (H) procedure are i n the results section. ABO/RH TYPE AND Routine 02/16/2019 1:40 Myeloproliferative Res ults for this SCREEN PM CDT disorder (H) procedure are i n the results section. documented in this encounter Results Blood component (02/16/2019 1:40 PM CDT) [facility] Method Time Signature Unit Number [id number] [facility] Blood Red Blood Cells 02/16/2019 [facility] Component LeukoReduced 2:17 PM T [facility] Irradiated HOSPITAL Division 00 02/16/2019 [facility] Number 2:17 PM [facility] Status of Released to care 02/17/2019 [place] Unit unit 11:52 PM [facility] Blood Product [id number] 02/16/2019 [facility] Code 2:17 PM [facility] Unit Status ISS [facility] Specimen Anatomical Collection Method Collection Time Receive d Time (Source) Location / / Volume Laterality 02/16/2019 1:40 PM 9 1:41 CDT PM CDT Dylon Cr MD LABORATORY Performing Organization Address City/State/ZIP Code Phon e Number M [place] [address] [place], [place] 5533 [facility] [address] [place], [place] [address] [place] [address] Blood component (02/16/2019 1:40 PM CDT) [facility] [employer] Method Time Signature Unit Number [id number] 02/16/2019 [facility] 2:17 PM [facility] Blood Red Blood Cells 02/16/2019 [facility] Component LeukoReduced 2:17 PM [facility] Irradiated HOSPITAL Division 00 02/16/2019 [facility] Number 2:17 PM [facility] Status of Released to care 02/17/2019 [facility] Unit unit 11:52 PM [facility] Blood Product [id number] 02/16/2019 [facility] Code 2:17 PM [facility] Unit Status ISS [facility] Specimen Anatomical Collection Method Collection Time Receive d Time (Source) Location / / Volume Laterality 02/16/2019 1:40 PM 9 1:41 CDT PM CDT Dylon Cr MD LABORATORY Performing Organization Address City/[facility]/ZIP Code Phon e Number M [facility] [address] [place] [address] [phone] [place] [address] [address] [place] [phone] ABO/Rh type and screen (02/16/2019 1:40 PM CDT) [facility] Signature Units Ordered 2 02/16/2019 [facility] 2:17 PM [facility] ABO A 02/16/2019 [facility] 2:16 PM [facility] RH(D) Pos [facility] Antibody Neg 02/16/2019 [facility] Screen 2:16 PM [facility] Test Valid [place] 02/16/2019 [facility] Only At [facility] 2:17 PM [facility] Specimen 02/19/2019 02/16/2019 [facility] Expires 2:17 PM [facility] Crossmatch Red Blood 02/16/2019 [facility] Cells 2:17 PM [facility] Specimen Anatomical Collection Method Collection Time Receive d Time (Source) Location / / Volume Laterality Blood specimen 02/16/2019 1:40 PM 019 1:41 (specimen) CDT PM CDT Dylon Cr MD LAB - BLOOD BANK TEST ORDER Performing Organization Address City/[facility]/ZIP Code Phon e Number M [facility] [address] [place], [place] [address] [facility] [address] [place], [place] [address] [place] [address] documented in this encounter 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
--- OUTSIDE RECORDS SUMMARY | 2022-05-02 12:18 | XMS_ITS | Encounter Summary ---
:1970 Author Organization [place] Address [address] [place] [address] Care Team Providers Name Role Phone No Ref-Primary, Physician Primary Care Provider [phone] Candida Epps MD Unavailable Shala Bell RN Unavailable Unavailable Encounter Details Date Type Department Care Team Description 02/08/2019 Travel Social History Tobacco Use Types Packs/Day [...] on filedocumented in this encounter Care Teams District Gauger Relationship Specialty Start Date End Date No Ref-Primary, PCP - General 09/30/17 Physician Candida Epps MD MD Internal Medicine 01/15/[address] [place] [address] 480 [place] [address] Shala Bell, HELENE Specialty Care Hematology & Oncology 01/15/19 07/23/21 Coordinator documented as of this encounter
--- OUTSIDE RECORDS SUMMARY | 2022-05-02 12:18 | XMS_ITS | Encounter Summary ---
:1970 Author Organization [place] Address [address] [place] [address]. [place] [address] Care Team Providers Name Role Phone No Ref-Primary, Physician Primary Care Provider [phone] Candida Epps MD Unavailable Shala Bell RN Unavailable Unavailable Encounter Details Date Type Department Care Team Description 02/03/2019 [facility] [place] Scan, BLOOD PLATELET Health Info Mgmt Non-Provider [facility] [address] [place] [address] Social History Tobacco Use Types Packs/Day [...] filedocumented in this encounter Care Teams Manager Epic Relationship Specialty Start Date End Date No Ref-Primary, PCP - General 09/30/17 Physician Candida Epps MD MD Internal Medicine 01/15/19 420 [facility] [address] [place] [address] Shala Bell, HELENE Specialty Care Hematology & Oncology 01/15/19 07/23/21 Coordinator documented as of this encounter
--- OUTSIDE RECORDS SUMMARY | 2022-05-02 12:18 | XMS_ITS | Encounter Summary ---
:1970 Author Organization [place] Address [address] [place] [address] Care Team Providers Name Role Phone No Ref-Primary, Physician Primary Care Provider [phone] Candida Epps MD Unavailable Shala Bell RN Unavailable Unavailable Encounter Details Date Type Department Care Team Description 02/08/2019 Hospital Encounter [facility] Dylon Cr , [facility] [address] [place] ONCOLOGY [place], [place] [address] E [facility] [address] [facility] 200 [place], [place] [address] (Wo rk) Social History [...] on filedocumented in this encounter Care Teams Survey Research Analyst Relationship Specialty Start Date End Date No Ref-Primary, PCP - General 09/30/17 Physician Candida Epps MD MD Internal Medicine 01/15/[address] [address] Shala Bell, HELENE Specialty Care Hematology & Oncology 01/15/19 07/23/21 Coordinator documented as of this encounter
--- OUTSIDE RECORDS SUMMARY | 2022-05-02 12:18 | XMS_ITS | Encounter Summary ---
:1970 Author Organization [place] Address [address] [place] [address] Care Team Providers Name Role Phone No Ref-Primary, Physician Primary Care Provider [phone] Candida Epps MD Unavailable Shala Bell RN Unavailable Unavailable Encounter Details Date Type Department Care Team Description 02/17/2019 Travel Social History Tobacco Use Types Packs/Day [...] on filedocumented in this encounter Care Teams Data Analysis Intern Relationship Specialty Start Date End Date No Ref-Primary, PCP - General 09/30/17 Physician Candida Epps MD MD Internal Medicine 01/15/[address] [place] [address] 480 [place] [address] Shala Bell, HELENE Specialty Care Hematology & Oncology 01/15/19 07/23/21 Coordinator documented as of this encounter
--- OUTSIDE RECORDS SUMMARY | 2022-05-02 12:18 | XMS_ITS | Encounter Summary ---
:1970 Author Organization [place] Address [address] [place] [address] Care Team Providers Name Role Phone No Ref-Primary, Physician Primary Care Provider [phone] Candida Epps MD Unavailable Shala Bell RN Unavailable Unavailable Encounter Details Date Type Department Care Team Description 02/16/2019 Travel Social History Tobacco Use Types Packs/Day [...] on filedocumented in this encounter Care Teams Cannoneer Relationship Specialty Start Date End Date No Ref-Primary, PCP - General 09/30/17 Physician Candida Epps MD MD Internal Medicine 01/15/[address] [place] [address] 480 [place] [address] Shala Bell, HELENE Specialty Care Hematology & Oncology 01/15/19 07/23/21 Coordinator documented as of this encounter
--- OUTSIDE RECORDS SUMMARY | 2022-05-02 12:18 | XMS_ITS | Encounter Summary ---
:1970 Author Organization [place] Address [address] [place] [address] Care Team Providers Name Role Phone No Ref-Primary, Physician Primary Care Provider [phone] Candida Epps MD Unavailable Shala Bell RN Unavailable Unavailable Reason for Visit Reason Comments Blood Transfusion 2 units PRBC's Encounter Details Date Type Department Care Team Description 02/17/2019 Infusion Therapy [facility] Dylon Cr Myelop roliferative Visit Cancer Center MD Chriss disorder (H) (Primary Dx) [facility] ONCOLOGY [facility] [address] [facility] [place] [address] [place], [place] [address] [place], [place] [phone] [address] (Work) [phone] Social History Tobacco Use Types Packs/Day Years [...] Sign Reading Time Taken Comments Blood Pressure 105/57 02/17/2019 11:57 AM CDT Pulse 83 02/17/2019 10:23 AM CDT Temperature 37 ??C (98.6 ??F) 02/17/2019 11:57 AM CDT Respiratory Rate 16 02/17/2019 11:57 AM CDT Oxygen Saturation 97% 02/17/2019 11:57 AM CDT Inhaled Oxygen Concentration - - Weight - - Height - - Body Mass Index - - documented in this encounter Progress Notes Fatuma Amador, HELENE - 02/17/2019 8:30 AM CDT Infusion Nursing Note: Jennifer Dobbs presents today for 2 units PRBC's. Patient seen by provider today: No Maker Up Folding present during visit today: Not Applicable. Note: Has c/o fatigue. Denies previous reaction to blood. Blood started at 120cc/hr and increased [id number]/hr after 10 minutes. Intravenous Access: Peripheral IV placed. Treatment Conditions: Blood transfusion consent signed 12/14/18. Post Infusion Assessment: Patient tolerated infusion without incident. Blood return noted pre and post infusion. Site patent and intact, free from redness, edema or discomfort. No evidence of extravasations. Access discontinued per protocol. Discharge Plan: Discharge instructions reviewed with: Patient. Patient discharged in stable condition accompanied by: sister. EMMA RITCHIE, RN documented in this encounter Plan of Treatment Not on filedocumented as of this encounter Procedures Procedure Name Priority Date/Time Associated Diagnosis Comme nts TRANSFUSE RED BLOOD Routine 02/17/2019 10:32 AM Myeloprolifera tive disorder CELL UNIT CDT (H) TRANSFUSE RED BLOOD Routine 02/17/2019 9:06 AM Myeloproliferat otoniel disorder CELL UNIT CDT (H) documented in this encounter Results Transfuse red blood cell unit (02/17/2019 12:04 PM CDT) Dylon Cr MD IP NURSING BLOOD ADMINISTRAT ON Transfuse red blood cell unit (02/17/2019 12:04 PM CDT) Dylon Cr MD IP NURSING BLOOD ADMINISTRAT ON Transfuse red blood cell unit (02/17/2019 10:23 AM CDT) Dylon Cr MD IP NURSING BLOOD ADMINISTRAT ON ABO/Rh type and screen (02/16/2019 1:40 PM CDT) [facility] Time Signature Units Ordered 2 02/16/2019 [place] 2:17 PM CDT [facility] ABO A 02/16/2019 [place] 2:16 PM CDT [facility] RH(D) Pos [facility] Antibody Neg 02/16/2019 [facility] Screen 2:16 PM [facility] Test Valid [place] 02/16/2019 [facility] Only At [facility] 2:17 PM T [facility] Specimen 02/19/2019 02/16/2019 [facility] Expires 2:17 PM [facility] Crossmatch Red Blood 02/16/2019 [place] Cells 2:17 PM CDT [facility] Specimen Anatomical Collection Method Collection Time Receive d Time (Source) Location / / Volume Laterality Blood specimen 02/16/2019 1:40 PM 019 1:41 (specimen) CDT PM CDT Dylon Cr MD LAB - BLOOD BANK TEST ORDER Performing Organization Address City/State/ZIP Code Phon e Number M [facility] [address] [place], [place] 55 [facility] [address] [place], [place] [address] [place] [address] documented in this encounter Visit Diagnoses Diagnosis 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
--- OUTSIDE RECORDS SUMMARY | 2022-05-02 12:18 | XMS_ITS | Encounter Summary ---
:1970 Author Organization [place] Address [address] [place] [address] Care Team Providers Name Role Phone No Ref-Primary, Physician Primary Care Provider [phone] Candida Epps MD Unavailable Shala Bell RN Unavailable Unavailable Encounter Details Date Type Department Care Team Description 03/10/2019 Travel Social History Tobacco Use Types Packs/Day [...] filedocumented in this encounter Care Teams Data Communications Engineer Relationship Specialty Start Date End Date No Ref-Primary, PCP - General 09/30/17 Physician Candida Epps MD MD Internal Medicine 01/15/[address] [place] [address] 480 [place] [address] Shala Bell, HELENE Specialty Care Hematology & Oncology 01/15/19 07/23/21 Coordinator documented as of this encounter
--- OUTSIDE RECORDS SUMMARY | 2022-05-02 12:18 | XMS_ITS | Encounter Summary ---
:1970 Author Organization [place] Address [address] [place] [address] Care Team Providers Name Role Phone No Ref-Primary, Physician Primary Care Provider [phone] Candida Epps MD Unavailable Shala Bell RN Unavailable Unavailable Encounter Details Date Type Department Care Team Description 03/05/2019 Travel Social History Tobacco Use Types Packs/Day [...] on filedocumented in this encounter Care Teams Business Office Technology Instructor Relationship Specialty Start Date End Date No Ref-Primary, PCP - General 09/30/17 Physician Candida Epps MD MD Internal Medicine 01/15/[address] [place] [address] 480 [place] [address] Shala Bell, HELENE Specialty Care Hematology & Oncology 01/15/19 07/23/21 Coordinator documented as of this encounter
--- OUTSIDE RECORDS SUMMARY | 2022-05-02 12:18 | XMS_ITS | Encounter Summary ---
:1970 Author Organization [place] Address [address] [place] [address] Care Team Providers Name Role Phone No Ref-Primary, Physician Primary Care Provider [phone] Candida Epps MD Unavailable Shala Bell RN Unavailable Unavailable Reason for Visit Reason Comments Infusion type/screen, 1 unit PRBCs Encounter Details Date Type Department Care Team Description 03/05/2019 Infusion Therapy [facility] Dylon Cr Myelop roliferative Visit Cancer Center MD Chriss disorder (H) (Primary Dx) [place] ONCOLOGY [facility] [address] [facility] [place] [address] [place], [place] [address] [place] [phone] (Work) [phone] Social History Tobacco Use Types Packs/Day Years [...] Sign Reading Time Taken Comments Blood Pressure 116/65 03/05/2019 10:36 AM CDT Pulse 79 03/05/2019 10:36 AM CDT Temperature 36.8 ??C (98.3 ??F) 03/05/2019 10:36 AM CDT Respiratory Rate 16 03/05/2019 10:36 AM CDT Oxygen Saturation - - Inhaled Oxygen Concentration - - Weight - - Height - - Body Mass Index - - documented in this encounter Progress Notes Kira Chatterjee RN - 03/05/2019 7:30 AM CDT Infusion Nursing Note: Jennifer Dobbs presents today for T&S, 1u PRBCs. Patient seen by provider today: No Dedicated Intermodal Truck Driver present during visit today: Not Applicable. Note: N/A. Intravenous Access: Labs drawn without difficulty. Peripheral IV placed. Treatment Conditions: Not Applicable. Post Infusion Assessment: Patient tolerated infusion without incident. Blood return noted pre and post infusion. Site patent and intact, free from redness, edema or discomfort. No evidence of extravasations. Access discontinued per protocol. Discharge Plan: Discharge instructions reviewed with: Patient. Patient and/or family verbalized understanding of discharge instructions and all questions answered. Patient discharged in stable condition accompanied by: self. Departure Mode: Ambulatory. Kira Chatterjee RN, RN documented in this encounter Plan of Treatment Not on filedocumented as of this encounter Procedures Procedure Name Priority Date/Time Associated Diagnosis Comme nts TRANSFUSE RED Routine 03/05/2019 9:07 Myeloproliferative BLOOD CELL UNIT AM CDT disorder (H) BLOOD COMPONENT Routine 03/05/2019 7:30 Myeloproliferative Res ults for this AM CDT disorder (H) procedure are i n the results section. ABO/RH TYPE AND STAT 03/05/2019 7:30 Myeloproliferative Res ults for this SCREEN AM CDT disorder (H) procedure are i n the results section. documented in this encounter Results Transfuse red blood cell unit (03/05/2019 2:18 PM CDT) Dylon Cr MD IP NURSING BLOOD ADMINISTRAT ON Transfuse red blood cell unit (03/05/2019 2:18 PM CDT) Dylon Cr MD IP NURSING BLOOD ADMINISTRAT ON Blood component (03/05/2019 7:30 AM CDT) [facility] [employer] [facility] [employer] Method Time Signature Unit Number [id number] 03/05/2019 [place] 8:49 AM CDT [facility] Blood Red Blood Cells 03/05/2019 [place] Component LeukoReduced 8:49 AM CDT [facility] Irradiated HOSPITAL Division 00 03/05/2019 [place] Number 8:49 AM CDT [facility] Status of Released to care 03/05/2019 [place] Unit unit 11:55 PM [facility] Blood Product [id number] 03/05/2019 [place] Code 8:49 AM CDT [facility] Unit Status ISS [facility] Specimen Anatomical Collection Method Collection Time Receive d Time (Source) Location / / Volume Laterality 03/05/2019 7:30 AM 9 8:07 CDT AM CDT Dylon Cr MD LABORATORY Performing Organization Address City/State/ZIP Code Phon e Number M [facility] [address] [place] [phone] [facility] [address] [address], [place] [phone] ABO/Rh type and screen (03/05/2019 7:30 AM CDT) [facility] Method Time Signature Units Ordered 1 03/05/2019 [place] 8:49 AM CDT [facility] ABO A 03/05/2019 [place] 8:44 AM CDT [facility] RH(D) Pos [facility] Antibody Neg 03/05/2019 [place] Screen 8:44 AM [facility] Test Valid [place] 03/05/2019 [place] Only At [facility] 8:09 AM T [facility] Specimen 03/08/2019 03/05/2019 [place] Expires 8:09 AM [facility] Crossmatch Red Blood 03/05/2019 [place] Cells 8:49 AM [facility] Specimen Anatomical Collection Method Collection Time Receive d Time (Source) Location / / Volume Laterality Blood specimen 03/05/2019 7:30 AM 019 8:07 (specimen) CDT AM CDT Dylon Cr MD LAB - BLOOD BANK TEST ORDER Performing Organization Address City/State/ZIP Code Phon e Number M [facility] [address] [phone] [facility] [address] [phone], [facility] [phone] documented in this encounter Visit Diagnoses Diagnosis 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
--- OUTSIDE RECORDS SUMMARY | 2022-05-02 12:18 | XMS_ITS | Encounter Summary ---
:1970 Author Organization [facility] Address [address] [place] [address] Care Team Providers Name Role Phone No Ref-Primary, Physician Primary Care Provider [phone] Candida Epps MD Unavailable Shala Bell RN Unavailable Unavailable Reason for Referral (Routine) - Closed Specialty Diagnoses / Procedures Referred By Contact Refer red To Contact Diagnoses Habitual snoring Hypersomnia Kaya Verduzco MD [address] [place], [place] [id number] 5 Referral ID Status Reason Start Date Expiration Date Visits Requ ested Visits Authorized [id number] Closed 03/10/2019 03/09/2020 1 1 Diagnostic Imaging NM (Routine) - Closed Specialty Diagnoses / Procedures Referred By Contact Refer red To Contact Radiology. Diagnoses SOB (shortness of breath) ROCHE (dyspnea on exertion) Kaya Verduzco MD Nuclear Medicine Procedures NM Lung Scan Ventilation and Perfusion [address] [place], [place] [id number] 5 [place] [address] Phone: Referral ID Status Reason Start Date Expiration Date Visits Requ ested Visits Authorized [id number] Closed 03/10/2019 03/09/2020 1 1 Diagnostic Imaging XR (Routine) - Closed Specialty Diagnoses / Procedures Referred By Contact Refer red To Contact Radiology. Diagnoses SOB (shortness of breath) ROCHE (dyspnea on exertion) Kaya Verduzco MD Xray Procedures X-ray Chest 2 vws* [address] [facility] [address] [place], [place] [address] [address] [place] [address] Phone: Referral ID Status Reason Start Date Expiration Date Visits Requ ested Visits Authorized [id number] Closed 03/10/2019 03/09/2020 1 1 Diagnostic Imaging NM (Routine) - Closed Specialty Diagnoses / Procedures Referred By Contact Refer red To Contact Cardiology Diagnoses Pre-operative cardiovascular examination SOB (shortness of breath) ROCHE (dyspnea on exertion) Kaya Verduzco MD Cardiac Services Procedures NM Lexiscan stress test (nuc card) [address] [facility] [address] 500 [place], [place] [address] 5 [place] [address] Phone: Referral ID Status Reason Start Date Expiration Date Visits Requ ested Visits Authorized [id number] Closed 03/10/2019 03/09/2020 5 5 Reason for Visit Reason Comments New Patient New Pt Visit CV Cardio consult (Routine) - Closed Specialty Diagnoses / Procedures Referred By Contact Refer red To Contact Diagnoses Myeloproliferative disorder (H) Forrest Majano MD [facility] [address] [place], [place] [address] Referral ID Status Reason Start Date Expiration Date Visits Requ ested Visits Authorized [id number] Closed 02/04/2019 02/04/2020 1 1 Encounter Details Date Type Department Care Team Description 03/10/2019 Office Visit [facility] Boaz Garcia MD [address] [address] Pre-operative cardiovascular examination (Primary Dx); [facility] Kaya Smith MD [address] [facility] [address] [place], [place] [address] SOB (shortness of breath); [address] ROCHE (dyspnea on exertion); [place], [place] Habitual sno ring; [phone] Hypersomnia [phone] Social History Tobacco Use Types Packs/Day Years [...] Sign Reading Time Taken Comments Blood Pressure 117/73 03/10/2019 8:52 AM CDT Pulse 81 03/10/2019 8:52 AM CDT Temperature - - Respiratory Rate - - Oxygen Saturation 98% 03/10/2019 8:52 AM CDT Inhaled Oxygen Concentration - - Weight 96.5 kg (212 lb 11.2 oz) 03/10/2019 8:52 AM CDT Height 169.6 cm (5' 6.77) 03/10/2019 8:52 AM CDT Body Mass Index 33.54 03/10/2019 8:52 AM CDT documented in this encounter Patient Instructions Patient InstructionsDuAmna black LPN - 03/10/2019 9:00 AM CDT Patient Instructions: It was a pleasure to see you in the cardiology clinic today. If you have any questions, you can reach my nurse, Amna Hubbard LPN, at . Press Option #1 for the [facility], and then press Option #4 for nursing. We are encouraging the use of Happy Hour Palt to communicate with your HealthCare Provider Medication Changes: None. Recommendations: A referral was place to the [facility] Medicine Clinic. They should contact you to schedule, but if you do not hear from them, please call [phone] to schedule. Studies Ordered: At your earliest convenience. - Chest X-Ray - Nuclear Medicine Ventilation and Perfusion Scan - Pulmonary Function Testing - Nuclear Medicine Lexiscan Stress Test Prep for manpreet-nuc stress test: Report to the [facility] Waiting Room at the [facility]. The hospital is located at [address] [facility] on the [place] of the campus. This test can take up to 3 hours. NPO 3 hours prior, Water is ok and encouraged NO alcohol, smoking, caffeine, or decaf products 12 hours prior TAKE ALL medications as prescribed, hold the following medications if they pertain to you: If you take Aggrenox or dipyridamole (Persantine, Permole), stop taking it 48 hours before your test. If you take Viagra, Cialis or Levitra, stop taking it 48 hours before your test. If you take theophylline or aminophylline, stop taking it 12 hours before your test. For patients with diabetes:If you take insulin, call your diabetes care team. Ask if you should take a 1/2 dose the morning of your test. If you take diabetes medicine by mouth, don???t take it on the morning of your test. Bring it with you to take after the test. (If you have questions, call your diabetes care team.) Do not take nitrates on the day of your test. Do not wear your Nitro-Patch If you have questions regarding your appointment date and time, please contact scheduling at [phone]. Any other questions regarding testing can be referred to Amna. The results from today include: EKG. Please follow up: With Dr. Verduzco based on results of testing and your symptoms. Sincerely, Kaya Verduzco MD If you have an urgent need after hours (8:00 am to 4:30 pm) please call [phone] and ask for thecardiology fellow wrong address clerk. documented in this encounter Progress Notes Kaya Verduzco MD - 03/10/2019 9:48 AM CDT Service Date: 03/10/2019 March 10, 2019 RE: Jennifer Mendez : 1970 Whom It May Concern: It was a pleasure participating in the care of your patient, Ms. Jennifer Mendez. As you know, she is [id number] lady whom I see today for dyspnea on exertion and in preoperative evaluation prior to splenectomy. Her past medical history is significant for the followin. Myelofibrosis. 2. Tonsillectomy. She denies having a significant history of cardiac disease. In terms of her present symptom complex, apparently for the past 3 years she has been sick. She was diagnosed with myelofibrosis then and has [facility].Over the past 3 years, her spleen and has grown in size to 30 cm and causes constant abdominal pain and fullness. She has anemia and required transfusions every couple of weeks. Apparently, a murmur was discovered and she was sent here for further evaluation prior to anticipated splenectomy. Her echocardiogram from today is pending; however, preliminary report suggests elevated pulmonary pressures. Of note, the patient usually sleeps on her left side but since her spleen is enlarged has only been able to sleep on her back which forces her to snore very loudly. She does not feel well rested, and she has to take several naps during the day. She definitely feels hypersomnolent and does not get restful sleep. She denies having any significant blood clots thus far. She denies chest pain. She does get quite dyspneic with exertion. If she climbs 15 steps, she will have to rest, or if she does any type of activities at home such as vacuum the floor, she will feel short of breath. She denies PND, orthopnea or edema. She denies sustained palpitations, syncope or near-syncope. In terms of her cardiac risk factors, no history of diabetes or hypertension. She quit smoking in 2012, had a 84-zklp-ikgb history. Denies alcohol use. She uses marijuana regularly for pain and anxiety. Father had heart trouble in his 60s. She does not know her cholesterol. She used to work at [employer]. Her is a [place]thorne. CURRENT MEDICATIONS: Oxycodone, morphine, lorazepam. PHYSICAL EXAMINATION: VITAL SIGNS: Blood pressure is 117/73 with a pulse of 81. Her weight is 212 pounds. NECK: Exam reveals no obvious jugular venous distention. LUNGS: Clear to auscultation. Respiratory effort is normal. CARDIAC: Exam reveals a regular rate and rhythm, no obvious murmur or gallop appreciated. ABDOMEN: Belly soft, nontender. EXTREMITIES: Significant for trace to +1 nonpitting edema. Echocardiogram from today final report reveals normal LV systolic function, ejection fraction is 55%-60%, no significant valvular pathology, RV is mildly dilated and there is moderate pulmonary hypertension with estimated PA pressure of 55. EKG 12/13/2015, normal sinus rhythm, nonspecific T-wave changes. EKG today reveals normal sinus rhythm with nonspecific T-wave changes along the anterior precordium which is different and changed since prior. 11/09/2018 Potassium 4.4, GFR normal. 01/22/2019 hemoglobin 8.1. IMPRESSION: Jennifer is a 48-year-old lady whose past medical history is significant for myelofibrosis with an enlarged spleen of 30 cm that causes constant abdominal pain and fullness. She also has a profound anemiathat requires blood transfusions every couple of weeks and has a hemoglobin of 8.1. She presents now with several active issues: 1. Pulmonary hypertension. She has moderate pulmonary hypertension with estimated PA pressure of 55mmHg by echo today with mild RV enlargement, normal LV systolic function without gross valvular pathology. The most likely underlying etiology for her pulmonary hypertension is sleep- disordered breathing. She definitely snores loudly while lying on her back. She can no longer lie on her left side as usual due to her enlarged spleen, and she feels that she does not get restful sleep and does not feel refreshed in the morning. Further evaluation for this would certainly be indicated. 2. Dyspnea on exertion. Her exertional dyspnea could certainly be contributing to it from many different avenues. First, is obviously her pulmonary hypertension, but ruling out other causes would also be reasonable. 3. Preoperative evaluation prior to splenectomy. She has exertional dyspnea, and her EKG today demonstrates T-wave changes that are new since 2015. Obviously, her enlarged spleen could be responsible for nonspecific changes; however, further evaluation would be indicated. PLAN: 1. Urgent sleep evaluation to rule out sleep-disordered breathing and sleep apnea. If this is positive, then starting positive airway pressure and once she is stable on that rechecking an echocardiogram after a couple of months to see if pulmonary pressures have decreased would be reasonable. 2. Additional workup for pulmonary hypertension and exertional dyspnea would include chest x-ray, PFTs and a V/Q scan. If her shortness of breath did not improve despite treatment for her presumed sleep disorder, then at that point in time, considering her changes on her EKG that are new, we will perform a pharmacologic nuclear stress test. We will have a low threshold towards pursuing both left and right heart catheterization in the future to more definitively rule out underlying coronary artery disease and also obtaining more definitivedata regarding her pulmonary pressures as well if needed. 3. I would like to see her back after she is on stable treatment for her likely sleep disorder for 2-3 months. We would repeat echo at that time to assess her clinical status and symptoms to ensure that no further workup and/or treatment would be indicated prior to pursuing her splenectomy. Once again, it was a pleasure participating in the care of your patient, Ms. Jennifer Mendez. Please feel free to contact me anytime if there are any questions regarding her care in the future. KAYA VERDUZCO MD MT: [place] Name: JENNIFER MENDEZ MRN: [id number] Account: [id number] : 1970 Service Date: 03/10/2019 Document: [id number] Kaya Verduzco MD - 03/10/2019 9:00 AM CDT [id number] documented in this encounter Nursing Notes Clemente Leiva CMA - 03/10/2019 9:00 AM CDT Chief Complaint Patient presents with ??? New Patient New Pt Visit Vitals were taken, medications reconciled and EKG performed. Clemente Leiva CMA 9:06 AM Amna Griggs LPN - 03/10/2019 9:00 AM CDT Cardiac Testing: Patient given instructions regarding nuclear pharmacologic thallium , PFTs, Chest x-ray, VQ Scan. Discussed purpose, preparation, procedure and when to expect results reported back to the patient. Patient demonstrated understanding of this information and agreed to call with further questions or concerns. Med Reconcile: Reviewed and verified all current medications with the patient. The updated medication list was printed and given to the patient. Return Appointment: Patient given instructions regarding scheduling next clinic visit. Patient demonstrated understanding of this information and agreed to call with further questions or concerns. Patient stated she understood all health information given and agreed to call with further questionsor concerns. Amna Griggs LPN documented in this encounter Plan of Treatment Scheduled Referrals Name Type Priority Associated Diagnoses Order S chedule SLEEP EVALUATION & Referral Routine Habitual snor ing Expected: 03/10/2019 MANAGEMENT REFERRAL - Hypersomnia (Appro ximate), ADULT - Expires: 2019 documented as of this encounter Procedures Procedure Name Priority Date/Time Associated Diagnosis Comme nts EKG 12-LEAD, Routine 03/10/2019 8:57 AM Pre-operative Results for this TRACING ONLY CDT cardiovascular procedure are in examination the results section. documented in this encounter Results NM Lexiscan [...] Kiley l LV function. MITRA MUJICA MD Kaya Verduzco MD IMG NM ORDERABLES NM Lung Scan Ventilation and Perfusion (03/12/2019 1:51 PM CDT) Anatomical Region Laterality Modality Chest Nuclear Medicine Specimen (Source) Anatomical Location Collection Method / Collectio n Time Received Time / Laterality Volume Impressions 03/12/2019 2:08 PM CDT Impression: 1. Pulmonary emboli is not present. I have personally reviewed the examinati on and initial interpretation and I agree with the findings. BOAZ JUAREZ MD Narrative 03/12/2019 2:08 PM CDT Examination:NM LUNG SCAN VENTILATION AND PERFUSION, 03/12/2019 1:51 PM Indication: ??Pulmonary HTN Eval, SOB, D OE; SOB (shortness of breath); ROCHE (dyspnea on exertion) Additional Information: Dyspnea on exert ion. Preoperative evaluation prior to splenectomy. Technique: The patient received 2 mCi of Tc-99m DTP A aerosol for ventilation and 6.8 mCi of Tc-99m MAA for perfusion. Mul tiple images were obtained of the lungs in Anterior, posterior, MONTERO, R PO, LPO, and ??PROSPER projections. Comparison: Radiograph 03/12/19 Findings: The ventilation and perfusion studies do not demonstrate mismatch perfusion defects. There is some some mi ld decreased uptake peripherally in the right lung but this is matched on ventilation as well. Procedure Note Boaz Juarez MD - 019 Examination:NM LUNG SCAN VENTILATION AND PERFUSION, 03/12/2019 1:51 PM Indication: Pulmonary HTN Eval, SOB, ROCHE ; SOB (shortness of breath); ROCHE (dyspnea on exertion) Additional Information: Dyspnea on exert ion. Preoperative evaluation prior to splenectomy. Technique: The patient received 2 mCi of Tc-99m DTP A aerosol for ventilation and 6.8 mCi of Tc-99m MAA for perfusion. Mul tiple images were obtained of the lungs in Anterior, posterior, MONTERO, R PO, LPO, and PROSPER projections. Comparison: Radiograph 03/12/19 Findings: The ventilation and perfusion studies do not demonstrate mismatch perfusion defects. There is some some mi ld decreased uptake peripherally in the right lung but this is matched on ventilation as well. Impression: 1. Pulmonary emboli is not present. I have personally reviewed the examinati on and initial interpretation and I agree with the findings. BOAZ JUAREZ MD Kaya Verduzco MD [facility] ORDERABLES X-ray Chest 2 vws* (03/12/2019 12:47 PM CDT) Anatomical Region Laterality Modality Chest Digital Radiography Specimen (Source) Anatomical Location Collection Method / Collectio n Time Received Time / Laterality Volume Impressions 03/12/2019 4:34 PM CDT IMPRESSION: Mild cardiomegaly with prominent pulmona ry vasculature. No focal airspace opacities. I have personally reviewed the examinati on and initial interpretation and I agree with the findings. ARIA FAN MD Narrative 03/12/2019 4:34 PM CDT XR CHEST 2 VW ??03/12/2019 12:47 PM ?? HISTORY: Pulmonary Hypertension Eval, SO B, ROCHE; SOB (shortness of breath); ROCHE (dyspnea on exertion) COMPARISON: 12/13/2015 FINDINGS: PA and lateral radiograph of the chest. Mild cardiomegaly with prominent pulmonary vasculature. Lung vo lumes are normal with no significant pleural effusions, opacities , or focal pulmonary opacities. Procedure Note Aria Fan MD - 03/12/2019F ormatting of this note might be different from the original. XR CHEST 2 VW 03/12/2019 12:47 PM HISTORY: Pulmonary Hypertension Eval, SO B, ROCHE; SOB (shortness of breath); ROCHE (dyspnea on exertion) COMPARISON: 12/13/2015 FINDINGS: PA and lateral radiograph of the chest. Mild cardiomegaly with prominent pulmonary vasculature. Lung vo lumes are normal with no significant pleural effusions, opacities , or focal pulmonary opacities. IMPRESSION: Mild cardiomegaly with prominent pulmona ry vasculature. No focal airspace opacities. I have personally reviewed the examinati on and initial interpretation and I agree with the findings. ARIA FAN MD Kaya Verduzco MD IMG DIAGNOSTIC IMAGING ORDER NAGI EKG 12-lead, tracing only (Same Day) (03/10/2019 8:57 AM CDT) [facility] gist Method Time Signature Interpretation ECG Click View RADIOLOGY Image link RESULTS to view waveform and result Specimen (Source) Anatomical Collection Method Collection Time Re ceived Time Location / / Volume Laterality 03/10/2019 8:57 AM CDT Kaya Verduzco MD ECG ORDERABLES Performing Organization Address City/State/ZIP Code Phon e Number RADIOLOGY RESULTS documented in this encounter Visit Diagnoses Diagnosis Pre-operative cardiovascular examination - Primary SOB (shortness of breath) Shortness of breath ROCHE (dyspnea on exertion) Other dyspnea and respiratory abnormalit y Habitual snoring Hypersomnia Hypersomnia, unspecified SOB (shortness of breath) Shortness of breath ROCHE (dyspnea on exertion) Other dyspnea and respiratory abnormalit y SOB (shortness of breath) Shortness of breath ROCHE (dyspnea on exertion) Other dyspnea and respiratory abnormalit y Pre-operative cardiovascular examination SOB (shortness of breath) Shortness of breath ROCHE (dyspnea on exertion) Other dyspnea and respiratory abnormalit y documented in this encounter Care Teams Horse Farm Manager Relationship Specialty Start Date End Date No Ref-Primary, PCP - General 09/30/17 Physician Candida Epps MD MD Internal Medicine 01/15/[address] [place] [id number] Shala Bell, HELENE Specialty Care Hematology & Oncology 01/15/19 07/23/21 Coordinator documented as of this encounter
--- OUTSIDE RECORDS SUMMARY | 2022-05-02 12:18 | XMS_ITS | Encounter Summary ---
:1970 Author Organization [facility] Address [address] [place] [address]. [place] [address] Care Team Providers Name Role Phone No Ref-Primary, Physician Primary Care Provider [phone] Candida Epps MD Unavailable Shala Bell RN Unavailable Unavailable Encounter Details Date Type Department Care Team Description 03/03/2019 Medical Correspondence Health [facility] Scan, BLOOD/PLATELET/PLAS Health Info Mgmt Non-Provider MA ORDER FO RM [facility] [address] [address] Social History Tobacco Use Types [...] filedocumented in this encounter Care Teams Associate Store Manager Relationship Specialty Start Date End Date No Ref-Primary, PCP - General 09/30/17 Physician Candida Epps MD MD Internal Medicine 01/15/19 [address] [facility] [address] [place] [address] Shala Bell, RN Specialty Care Hematology & Oncology 01/15/19 07/23/21 Coordinator documented as of this encounter
--- OUTSIDE RECORDS SUMMARY | 2022-05-02 12:18 | XMS_ITS | Encounter Summary ---
:1970 Author Organization [facility] Address [address] [place] [address] Care Team Providers Name Role Phone No Ref-Primary, Physician Primary Care Provider [phone] Candida Epps MD Unavailable Shala Bell RN Unavailable Unavailable Encounter Details Date Type Department Care Team Description 01/22/2019 Travel Social History Tobacco Use Types Packs/Day [...] on filedocumented in this encounter Care Teams Tap Dancer Relationship Specialty Start Date End Date No Ref-Primary, PCP - General 09/30/17 Physician Candida Epps MD MD Internal Medicine 01/15/[address] [place] [address] 480 [place] [address] Shala Bell, HELENE Specialty Care Hematology & Oncology 01/15/19 07/23/21 Coordinator documented as of this encounter
--- OUTSIDE RECORDS SUMMARY | 2022-05-02 12:18 | XMS_ITS | Encounter Summary ---
:1970 Author Organization [facility] Address [facility] [place] [address] Care Team Providers Name Role Phone No Ref-Primary, Physician Primary Care Provider [phone] Candida Epps MD Unavailable Shala Bell RN Unavailable Unavailable Encounter Details Date Type Department Care Team Description 03/05/2019 Hospital Encounter [facility] [address] [facility] [address] [address] [address] [facility] [phone] [address] [place], [place] [address] (Wo rk) Social History [...] on filedocumented in this encounter Care Teams Packing Room Worker Relationship Specialty Start Date End Date No Ref-Primary, PCP - General 09/30/17 Physician Candida Epps MD MD Internal Medicine 01/15/[address] [address] Shala Bell, HELENE Specialty Care Hematology & Oncology 01/15/19 07/23/21 Coordinator documented as of this encounter
--- OUTSIDE RECORDS SUMMARY | 2022-05-02 12:18 | XMS_ITS | Encounter Summary ---
:1970 Author Organization [facility] Address [address] [place] [address] Care Team Providers Name Role Phone No Ref-Primary, Physician Primary Care Provider [phone] Candida Epps MD Unavailable Shala Bell RN Unavailable Unavailable Encounter Details Date Type Department Care Team Description 02/08/2019 Hospital Encounter [facility] [address] [facility] [address] [place] ONCOLOGY [place], [place] [address] [facility] [address] [facility] [address] [place], [place] [address] (Wo rk) Social History [...] on filedocumented in this encounter Care Teams Oil Well Service Operator Relationship Specialty Start Date End Date No Ref-Primary, PCP - General 09/30/17 Physician Candida Epps MD MD Internal Medicine 01/15/[address] [address] Shala Bell, HELENE Specialty Care Hematology & Oncology 01/15/19 07/23/21 Coordinator documented as of this encounter
--- OUTSIDE RECORDS SUMMARY | 2022-05-02 12:18 | XMS_ITS | Encounter Summary ---
:1970 Author Organization [facility] Address [address] [place] [address] Care Team Providers Name Role Phone No Ref-Primary, Physician Primary Care Provider [phone] Candida Epps MD Unavailable Shala Bell RN Unavailable Unavailable Reason for Visit Reason Comments Health Maintenance Encounter Details Date Type Department Care Team Description 01/28/2019 Documentation Only [facility] T[facility] Mcdonald, Health Maintenance Coordination, [facility] Ambulatory [address] [place] [id number] Social History Tobacco Use Types Packs/Day Years [...] on filedocumented in this encounter Care Teams Smash Hand Relationship Specialty Start Date End Date No Ref-Primary, PCP - General 09/30/17 Physician Candida Epps MD MD Internal Medicine 01/15/[address] [place] [id number] Shala Bell, HELENE Specialty Care Hematology & Oncology 01/15/19 07/23/21 Coordinator documented as of this encounter
--- OUTSIDE RECORDS SUMMARY | 2022-05-02 12:18 | XMS_ITS | Encounter Summary ---
:1970 Author Organization [place] Address [address] [place] [address] Care Team Providers Name Role Phone No Ref-Primary, Physician Primary Care Provider [phone] Candida Epps MD Unavailable Shala Bell RN Unavailable Unavailable Encounter Details Date Type Department Care Team Description 02/08/2019 Orders Only [facility] Myel[facility] lif[facility] disorder [facility] (H) [facility] [address] [place] [phone] Social History Tobacco Use Types Packs/Day Years [...] Associated Diagnosis Comme nts BLOOD COMPONENT Routine 02/08/2019 2:44 Myeloproliferative Res ults for this PM CDT disorder (H) procedure are i n the results section. ABO/RH TYPE AND Routine 02/08/2019 2:44 Myeloproliferative Res ults for this SCREEN PM CDT disorder (H) procedure are i n the results section. documented in this encounter Results Blood component (02/08/2019 2:44 PM CDT) [facility] Method Time Signature Unit Number [id number] 02/08/2019 [place] 5:52 PM CDT [facility] Blood Red Blood Cells 02/08/2019 [facility] Component LeukoReduced 5:52 PM CDT [facility]rr[facility]iated [facility] Division 00 02/08/2019 [facility] Number 5:52 PM [facility] Status of Released to care 02/09/2019 [facility] Unit unit 11:52 PM [facility] Blood Product [id number] 02/08/2019 [facility] Code 5:52 PM [facility] Unit Status ISS [facility] Specimen Anatomical Collection Method Collection Time Receive d Time (Source) Location / / Volume Laterality 02/08/2019 2:44 PM 9 2:45 CDT PM CDT Dylon Cr MD LABORATORY Performing Organization Address City/[facility] Phon e Number M [facility] [address] [place], [place] [address] [facility] [address] [place], [place] [address] [facility] [phone] ABO/Rh type and screen (02/08/2019 2:44 PM CDT) [facility] Method Time Signature Units Ordered 1 02/08/2019 [facility] 3:58 PM [facility] ABO A 02/08/2019 [facility] 3:25 PM [facility] RH(D) Pos [facility] Antibody Neg 02/08/2019 [facility] Screen 3:25 PM [facility] Test Valid [place] 02/08/2019 [facility] Only At [facility] 3:58 PM [facility] Specimen 02/11/2019 02/08/2019 [facility] Expires 3:58 PM [facility] Crossmatch Red Blood 02/08/2019 [facility] Cells 3:58 PM [facility] Specimen Anatomical Collection Method Collection Time Receive d Time (Source) Location / / Volume Laterality Blood specimen 02/08/2019 2:44 PM 019 2:45 (specimen) CDT PM CDT Dylon Cr MD LAB - BLOOD BANK TEST ORDER Performing Organization Address [facility]/ZIP [facility] Phon e Number M [facility] [address] [place], [place] [address] [facility] [address] [phone] documented in this encounter 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
--- OUTSIDE RECORDS SUMMARY | 2022-05-02 12:18 | XMS_ITS | Encounter Summary ---
:1970 Author Organization [place] Address [address] [place] [address] Care Team Providers Name Role Phone No Ref-Primary, Physician Primary Care Provider [phone] Candida Epps MD Unavailable Shala Bell RN Unavailable Unavailable Reason for Visit Reason Onset Date Comments *-*INCOMING RECORDS*-* 03/10/2019 Cardiac Clearance for Spleen Surgery Encounter Details Date Type Department Care Team Description 03/10[facility] LISA (Cardiac Clearance for [address] [facility] [address] [place] [address] Spleen Surgery) [place], [place] [address] [place], [place] [phone] (Wo rk) Social History Tobacco Use [...] this encounter Miscellaneous Notes Telephone Encounter - Elizabeth Shen - 02/26/2019 9:47 AM CDT RECORDS RECEIVED FROM: Internal DATE RECEIVED: 03-10 NOTES STATUS DETAILS OFFICE NOTE from referring provider Internal 02-04-19 Dr. Garcia OFFICE NOTE from other co op N/A DISCHARGE SUMMARY from hospital N/A DISCHARGE REPORT from the ER N/A OPERATIVE REPORT N/A MEDICATION LIST Internal LABS BMP Internal 2-15-16 CBC Internal 01-22-19 CMP Internal 11-09-18 Lipids N/A TSH N/A DIAGNOSTIC PROCEDURES EKG Internal 12-13-15 Monitor Reports N/A IMAGING (DISC & REPORT) Echo In process Scheduled prior to appt Stress Tests N/A Cath N/A MRI/MRA N/A CT/CTA N/A documented in 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 Care Teams Archaeology Professor Relationship Specialty Start Date End Date No Ref-Primary, PCP - General 09/30/17 Physician Candida Epps MD MD Internal Medicine 01/15/[address] [place] [address] [address] [place] [address] Shala Bell, HELENE Specialty Care Hematology & Oncology 01/15/19 07/23/21 Coordinator documented as of this encounter
--- OUTSIDE RECORDS SUMMARY | 2022-05-02 12:18 | XMS_ITS | Encounter Summary ---
:1970 Author Organization [place] Address [address] [place] [address] Care Team Providers Name Role Phone No Ref-Primary, Physician Primary Care Provider [phone] Candida Epps MD Unavailable Shala Bell RN Unavailable Unavailable Reason for Referral (Routine) - Closed Specialty Diagnoses / Procedures Referred By Contact Refer red To Contact Procedures Forrest Majano MD HIB, PRP-T, ACTHIB, IM [place] [address] [place] [address] 5 Referral ID Status Reason Start Date Expiration Date Visits Requ ested Visits Authorized [id number] Closed 02/04/2019 02/04/2020 1 1 (Routine) - Closed Specialty Diagnoses / Procedures Referred By Contact Refer red To Contact Diagnoses Myeloproliferative disorder (H) Forrest Majano MD [address] [place] [id number] 5 Referral ID Status Reason Start Date Expiration Date Visits Requ ested Visits Authorized [id number] Closed 02/04/2019 02/04/2020 1 1 (Routine) - Closed Specialty Diagnoses / Procedures Referred By Contact Refer red To Contact Procedures Forrest Majano MD Pneumococcal vaccine 23 [facility] valent PPSV23 (Pneumovax) [address] [[id number]] [place] [address] 5 Referral ID Status Reason Start Date Expiration Date Visits Requ ested Visits Authorized [id number] Closed 02/04/2019 02/04/2020 1 1 V Testing (Routine) - Closed Specialty Diagnoses / Procedures Referred By Contact Refer red To Contact Diagnoses Myeloproliferative disorder (H) Forrest Majano MD Procedures Echocardiogram Complete HC TTE W/DOPPLER, COMPLETE HC ECHO COMPLETE W DOPPLER W CONTRAST HC ECHO COMPLETE W DOPPLER W/O CONTRAST HC IV PUSH SINGLE, INITIAL SUBSTANCE HC US GUIDE FOR PERICARDIOCENTESIS HC ECHO MYOCARD BX [facility] C INJECTION, PERFLUTREN LIPI D MICROSPHERES, PER ML HC STATISTIC IV PUSH SINGLE INITIAL SUBSTANCE [address] [place], [place] [address] 5 Referral ID Status Reason Start Date Expiration Date Visits Requ ested Visits Authorized [id number] Closed 02/04/2019 02/04/2020 1 1 V Cardio consult (Routine) - Closed Specialty Diagnoses / Procedures Referred By Contact Refer red To Contact Diagnoses Myeloproliferative disorder (H) Forrest Majano MD [address] [address] Referral ID Status Reason Start Date Expiration Date Visits Requ ested Visits Authorized [id number] Closed 02/04/2019 02/04/2020 1 1 (Routine) - Closed Specialty Diagnoses / Procedures Referred By Contact Refer red To Contact Diagnoses Myeloproliferative disorder (H) Forrest Majano MD Procedures MENINGOCOCCAL VACICINE,SQ (MENOMUNE??)) [address] [address] Referral ID Status Reason Start Date Expiration Date Visits Requ ested Visits Authorized [id number] Closed 02/04/2019 02/04/2020 1 1 Reason for Visit Reason Comments Consult Spenectomy consult Consultation (Routine) - Closed Specialty Diagnoses / Procedures Referred By Contact Refer red To Contact Diagnoses Myeloproliferative disorder (H) Candida Epps MD [address] [facility] [address] [place], [place] [address] 5 Referral ID Status Reason Start Date Expiration Date Visits Requ ested Visits Authorized [id number] Closed 01/19/2019 01/19/2020 1 1 Encounter Details Date Type Department Care Team Description 02/04/2019 Office Visit [facility] General Candida Epps MD [facility] [address] [place], [place] [id number] Spleen enlarged (Primary Dx); Surgery Boaz Garcia MD [address] [facility] 195 [place], [place] [phone] Myeloproliferative disorder (H) [address] [facility] [address] [place] [address] Social History Tobacco Use Types Packs/Day [...] Sign Reading Time Taken Comments Blood Pressure 133/63 02/04/2019 7:48 AM CDT Pulse 84 02/04/2019 7:48 AM CDT Temperature 36.8 ??C (98.2 ??F) 02/04/2019 7:48 AM CDT Respiratory Rate - - Oxygen Saturation 96% 02/04/2019 7:48 AM CDT Inhaled Oxygen Concentration - - Weight 94.8 kg (208 lb 14.4 oz) 02/04/2019 7:48 AM CDT Height 169.6 cm (5' 6.77) 02/04/2019 7:48 AM CDT Body Mass Index 32.94 02/04/2019 7:48 AM CDT documented in this encounter Patient Instructions Patient InstructionsFlaquita Hobson RN - 02/04/2019 8:00 AM CDT Patient is to obtain Cardiology Clearance Patient to have Echocardiogram. Patient to have vaccinations.(3) Patient to call [phone] and speak to Amairani to schedule surgery. Surgery must be at least 2 weeksafter immunizations obtained. Patient to call [phone] to schedule PAC appointment. This can be done after OR schedule date given. documented in this encounter Progress Notes Boaz Garcia MD - 02/04/2019 8:00 AM CDT New General Surgery Consultation Note Jennifer Mendez [id number] 1970 February 04, 2019 Requesting Provider: Candida Epps I had the pleasure of seeing your patient, Jennifer Mendez. She is a 48 year old female who is being seen in consultation for the following concern(s). CHIEF COMPLAINT: Enlarged spleen associated with pain. HISTORY OF PRESENT ILLNESS: Patient is a 48 yo F who was diagnosed with myelofibrosis about 3 years ago. Has undergone two unsuccessful medication trials at [place]. Over the past 3 years her spleen has grown in size now to 30cm andcauses constant abdominal pain and fullness. She tolerates PO but feels full and sometimes gets nausea and vomiting. Has pain laying on her left side and with palpation. She has anemia and requires transfusions every two weeks. Has lost 75 pounds over past 3 years. Quit smoking ~2012 after 27 pack year. Denies any history of abdominal surgery. Of note, patient recently found to have new murmur. She gets dyspnea with exertion - after about 10-15 stairs. She does not take any blood thinners. Likely toreceive bone marrow transplant in future. Does not believe she has gotten vaccinations. Patient not currently immunosuppressed. LOCATION: Epigastric, LUQ, LLQ SEVERITY: Severity of Present Illness Reviewed With Patient 02/04/2019 How would you describe your symptoms? Moderate Does your current concern alter your level of activities? Yes TIMING: Timing of Present Illness Reviewed With Patient 02/04/2019 The onset of my symptoms was: Gradual My symptoms are: Constant My symptoms have been: Staying the Same DURATION: No flowsheet data found. MODIFYING FACTORS: Modifying Factors Reviewed With Patient 02/04/2019 My symptoms get worse with: new medication ASSOCIATED SIGNS/SYMPTOMS: Nausea, vomiting, weight loss Review of Systems Constitutional: Positive for fatigue, night sweats and recent stressors. Negative for fever, chills,weight loss, weight gain, decreased appetite, height loss, post-operative complications, incisional pain, hallucinations, increased energy, hyperactivity and confused. HENT: Positive for hoarse voice and sore throat. Negative for ear pain, hearing loss, tinnitus, nosebleeds, trouble swallowing, mouth sores, ear discharge, tooth pain, gum tenderness, taste disturbance, smell disturbance, hearing aid, bleeding gums, dry mouth, sinus pain, sinus congestion and neck mass. Eyes: Positive for pain, eye pain, decreased vision, eye bulging, eye dryness and eye irritation. Negative for double vision, redness, eye watering, flashing lights, spots, floaters, strabismus, tunnelvision and jaundice. Respiratory: Positive for shortness of breath, sleep disturbances due to breathing, snores loudly, dyspnea on exertion, cough disturbing sleep and postural dyspnea. Negative for cough, hemoptysis, sputum production and wheezing. Cardiovascular: Positive for chest pain, dyspnea on exertion, palpitations, orthopnea, history of heart murmur, sleep disturbances due to breathing, light- headedness and exercise intolerance. Negative for fingers/toes turn blue, hypertension, hypotension, syncope, pacemaker, few scattered varicositiesand leg pain. Gastrointestinal: Positive for vomiting, abdominal pain, diarrhea, constipation, bloating and changein stool. Negative for heartburn, nausea, blood in stool, melena, rectal pain, bowel incontinence, jaundice and coffee ground emesis. Genitourinary: Positive for urgency and difficulty urinating. Negative for bladder incontinence, dysuria, hematuria, flank pain, vaginal discharge, genital sores, dyspareunia, decreased libido, nocturia, voiding less frequently, arousal difficulty, abnormal vaginal bleeding, excessive menstruation, menstrual changes, hot flashes, vaginal dryness and postmenopausal bleeding. Musculoskeletal: Positive for back pain, neck pain and muscle weakness. Negative for myalgias, jointswelling, arthralgias, stiffness, muscle cramps, bone pain and fracture. Skin: Positive for rash. Negative for nail changes, itching, poor wound healing, hair changes, skin changes, acne, warts, poor wound healing, scarring, flaky skin, Raynaud's phenomenon, sensitivity to sunlight and skin thickening. Neurological: Positive for tingling, weakness, light-headedness, headaches, memory loss and difficulty walking. Negative for dizziness, tremors, speech change, seizures, loss of consciousness, numbness, disturbances in coordination and paralysis. Endo/Heme: Positive for anemia. Negative for swollen glands and bruises/bleeds easily. Psychiatric/Behavioral: Positive for depression, memory loss, decreased concentration and mood swings. Negative for hallucinations and panic attacks. Breast: Negative for breast discharge, breast mass, breast pain and nipple retraction. Endocrine: Positive for altered temperature regulation and polydipsia.Negative for polyphagia, unwanted hair growth and change in facial hair. PAST MEDICAL HISTORY: Past Medical History: Diagnosis Date ??? Myelofibrosis (H) 10/2015 PAST SURGICAL HISTORY: Past Surgical History: Procedure Laterality Date ??? BONE MARROW BIOPSY, BONE SPECIMEN, NEEDLE/TROCAR Left 09/14/2015 Procedure: BIOPSY BONE MARROW; Surgeon: Paolo Purcell MD; Location: OR ??? ENT SURGERY Tonsillectomy ??? ENT SURGERY Myringotomies x 1 ??? SOFT TISSUE SURGERY Stitches in finger MEDICATIONS: Current Outpatient Medications Medication ??? ibuprofen (ADVIL/MOTRIN) 200 MG tablet ??? LORAZEPAM PO ??? MORPHINE SULFATE PO ??? oxyCODONE (ROXICODONE) 5 MG immediate release tablet ??? senna-docusate (SENOKOT-S;PERICOLACE) 8.6-50 MG per tablet ??? Sodium Bicarbonate-Citric Acid (VASYL-SELTZER HEARTBURN PO) No current facility-administered medications for this visit. ALLERGIES: No Known Allergies SOCIAL HISTORY: Social History Socioeconomic History ??? Marital status: Spouse name: None ??? Number of children: None ??? Years of education: None ??? Highest education level: None Occupational History ??? None Social Needs ??? Financial resource strain: None ??? Food insecurity: Worry: None Inability: None ??? Transportation needs: Medical: None Non-medical: None Tobacco Use ??? Smoking status: Former Smoker Last attempt to quit: 09/27/2012 Years since quittin.3 ??? Smokeless tobacco: Never Used ??? Tobacco comment: quit September 27, 2012 Substance and Sexual Activity ??? Alcohol use: Yes Comment: 1 drink per week ??? Drug use: Yes Types: Marijuana Comment: occas. ??? Sexual activity: None Lifestyle ??? Physical activity: Days per week: None Minutes per session: None ??? Stress: None Relationships ??? Social connections: Talks on phone: None Gets together: None Attends sabianism service: None Active member of club or organization: None Attends meetings of clubs or organizations: None Relationship status: None ??? Intimate partner violence: Fear of current or ex partner: None Emotionally abused: None Physically abused: None Forced sexual activity: None Other Topics Concern ??? None Social History Narrative ??? None FAMILY HISTORY: No family history on file. PHYSICAL EXAM: Vital Signs: BP 133/63 (BP Location: Left arm, Patient Position: Sitting, Cuff Size: Adult Large) Pulse 84 Temp 98.2 ??F (36.8 ??C) (Oral) Ht 1.696 m (5' 6.77) Wt 94.8 kg (208 lb 14.4 oz) SpO2 96% BMI 32.94 kg/m?? Gen: AAO x3 Nose: No secretions Neck: No LAD Mouth NCAT; MMM; CV: RRR, holosystolic murmur Lungs: Breathing unlabored Abdomen: soft, min TTP LUQ/LLQ, without hepatosplenomegaly or masses PERTINENT IMAGING/TESTING: CT A/P: 30.2 cm sp[kailyn enlarged from 19.9cm. Infact noted LABORATORY TESTING: WBC 4.4 Hgb 8.1 Plt 172 ASSESSMENT: 48 yo F 3 years of myelofibrosis diagnosis now with 75lb weight loss, anemia requiring biweekly confusions and enlarging, symptomatic spleen now 30cm. DISCUSSION OF RISKS: Discussed procedure belowwith patient as well as the indications for the procedure and the associated risks including infection, bleeding, pneumonia and DVT. Also discussed was risk of damage to surrounding structures and risk of hernia. Patient understands these risks and would like to proceed. Patient has also consented to blood products if it is required. PLAN: - Plan for open splenectomy. Patient understands increased risk. Too large to be performed laparoscopically - PAC H&P clearance - Cardiology consult and echo for holosystolic murmur and ROCHE consistent with aortic stenosis - Vaccines below at least 2 weeks prior to surgery Orders Placed This Encounter Procedures ??? MENINGOCOCCAL VACICINE,SQ (MENOMUNE??)) ??? Pneumococcal vaccine 23 valent PPSV23 (Pneumovax) [90225] ??? HIB, PRP-T, ACTHIB, IM ??? CARDIOLOGY EVAL ADULT REFERRAL ??? PAC Visit Referral (For [facility] Only) ??? Echocardiogram Complete Sincerely, Forrest Majano MD Physician Attestation I, Boaz Garcia, saw and evaluated this patient as part of a shared visit. I have reviewed and discussed with the advanced practice provider and/or resident their history, physical and plan. I personally reviewed the vital signs, medications, labs and imaging. My roa history or physical exam findings: has enlarged spleen; imaging documents 30cm size. Roa management decisions made by me: would always like to do laparoscopic splenectomy; however, sizedoesn't even provide room inside the abdomen to manipulate the spleen. Will do open splenectomy after cardiology evaluation and immunizations. Boaz Garcia MD Date of Service (when I saw the patient): 02/04/19 documented in this encounter Nursing Notes Zeinab Fritz CMA - 02/04/2019 8:00 AM CDT Chief Complaint Patient presents with ??? Consult Spenectomy consult Vitals: 02/04/19 0748 BP: 133/63 BP Location: Left arm Patient Position: Sitting Cuff Size: Adult Large Pulse: 84 Temp: 98.2 ??F (36.8 ??C) TempSrc: Oral SpO2: 96% Weight: 94.8 kg (208 lb 14.4 oz) Height: 1.696 m (5' 6.77) Body mass index is 32.94 kg/m??. Zeinab Fritz CMA documented in this encounter Plan of Treatment Scheduled Orders Name Type Priority Associated Diagnoses Order S chedule Sarahi-Operative Worksheet Procedures Routine Spleen enlarged Ordered: 02/04/2019 (General) Scheduled Referrals Name Type Priority Associated Diagnoses Order S chedule CARDIOLOGY EVAL ADULT Referral Routine Myeloproliferative disorder Ordered: REFERRAL (H) 02/04/2019 PAC Visit Referral Referral Routine Myeloproliferative dis order Ordered: (For [facility] Only) (H) 02/04/2019 documented as of this encounter Results ECHO COMPLETE (03/10/2019 8:31 AM CDT) Anatomical Region Laterality Modality Echocardiography Specimen (Source) Anatomical Collection Method Collection Time Re ceived Time Location / / Volume Laterality 03/10/2019 7:41 AM CDT Narrative 03/10/2019 9:23 AM CDT [id number]^BIRDIE^BOAZ^ROOPA [facility] Diagnostic and Treamtent-3rd Floor [address] [place] [address] Name: JENNIFER MENDEZ : 1970 Study Date: 03/10/2019 07:41 AM Age: 48 yrs Gender: Female Patient Location: [facility] Reason For Study: Myeloproliferative dis order (H) Ordering Physician: BOAZ GARCIA Referring Physician: FORREST MAJANO Performed By: Rajani Edwards BLADE BSA: 2.1 m2 Height: 67 in Weight: [...] report as documented by the fellow, josi f, and/or edited by me. __ MMode/2D Measurements [...] Procedure Note Inderjit Patterson MD - 03/10/2019 [id number]^BIRDIE^BOAZ^ROOPA [facility] Diagnostic and Treamtent-3rd Floor [address] [place] [address] Name: JENNIFER MENDEZ : 1970 Study Date: 03/10/2019 07:41 AM Age: 48 yrs Gender: Female Patient Location: [facility] Reason For Study: Myeloproliferative dis order (H) Ordering Physician: BOAZ GARCIA Referring Physician: FORREST MAJANO Performed By: Rajani Edwards BLADE BSA: 2.1 m2 Height: 67 in Weight: [...] documented in this encounter Visit Diagnoses Diagnosis Spleen enlarged - Primary Splenomegaly 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
--- OUTSIDE RECORDS SUMMARY | 2022-05-02 12:18 | XMS_ITS | Encounter Summary ---
:1970 Author Organization [place] Address [address] [place] [address] Care Team Providers Name Role Phone No Ref-Primary, Physician Primary Care Provider [phone] Candida Epps MD Unavailable Shala Bell RN Unavailable Unavailable Encounter Details Date Type Department Care Team Description 02/09/2019 Travel Social History Tobacco Use Types Packs/Day [...] on filedocumented in this encounter Care Teams Buffet Server Relationship Specialty Start Date End Date No Ref-Primary, PCP - General 09/30/17 Physician Candida Epps MD MD Internal Medicine 01/15/[address] [place] [address] [address] [place] [address] Shala Bell, HELENE Specialty Care Hematology & Oncology 01/15/19 07/23/21 Coordinator documented as of this encounter
--- OUTSIDE RECORDS SUMMARY | 2022-05-02 12:18 | XMS_ITS | Encounter Summary ---
:1970 Author Organization [place] Address [address] [place] [address] Care Team Providers Name Role Phone No Ref-Primary, Physician Primary Care Provider [phone] Candida Epps MD Unavailable Shala Bell RN Unavailable Unavailable Encounter Details Date Type Department Care Team Description 03/04/2019 Travel Social History Tobacco Use Types Packs/Day [...] on filedocumented in this encounter Care Teams Retail Sales Clerk Relationship Specialty Start Date End Date No Ref-Primary, PCP - General 09/30/17 Physician Candida Epps MD MD Internal Medicine 01/15/[address] [place] [address] [address] [place] [address] Shala Bell, HELENE Specialty Care Hematology & Oncology 01/15/19 07/23/21 Coordinator documented as of this encounter
--- OUTSIDE RECORDS SUMMARY | 2022-05-02 12:18 | XMS_ITS | Encounter Summary ---
:1970 Author Organization [place] Address [address] [place] [address] Care Team Providers Name Role Phone No Ref-Primary, Physician Primary Care Provider [phone] Candida Epps MD Unavailable Shala Bell RN Unavailable Unavailable Reason for Visit Reason Comments Blood Transfusion 1 unit prbc Encounter Details Date Type Department Care Team Description 02/09/2019 Infusion Therapy [facility] Dylon Cr Myelop roliferative Visit Cancer Center MD Chriss disorder (H) (Primary Dx) [facility] [place] ONCOLOGY [facility] Medical Ctr [address] [facility] [place] [address] [place], [place] [address] [address] [place], [place] [phone] [address] (Work) [phone] Social History Tobacco Use Types Packs/Day Years [...] Sign Reading Time Taken Comments Blood Pressure 123/61 02/09/2019 9:40 AM CDT Pulse 78 02/09/2019 9:40 AM CDT Temperature 36.9 ??C (98.5 ??F) 02/09/2019 9:40 AM CDT Respiratory Rate 16 02/09/2019 9:40 AM CDT Oxygen Saturation 97% 02/09/2019 9:40 AM CDT Inhaled Oxygen Concentration - - Weight - - Height - - Body Mass Index - - documented in this encounter Patient Instructions Patient InstructionsDaClemencia braone RN - 02/09/2019 8:00 AM CDT Patient Education After Your Blood Transfusion Discharge [...] reaction won't show up for a few days or up to 4 weeks. These may include: ?? Fatigue ?? Dizziness ?? [place] or red urine Your clinic is: For informational purposes only. Not to replace the advice of your health care provider. Copyright ?? 2014 [facility]. All rights reserved. Smallable [id number] - Rev 01/26. documented in this encounter Progress Notes Clemencia Yusuf RN - 02/09/2019 8:00 AM CDT Infusion Nursing Note: Jennifer Dobbs presents today for 1 unit prbc. Patient seen by provider today: No Document Analyst present during visit today: Not Applicable. Note: pt had emesis of yellow liquid during transfusion. this happens all the time with me . Declined need for any zofran/antiemetics. Intravenous Access: Peripheral IV placed. Treatment Conditions: Blood transfusion consent signed 08/02/18 hgb 6.9. Post Infusion Assessment: Patient tolerated infusion without incident. Blood return noted pre and post infusion. Site patent and intact, free from redness, edema or discomfort. No evidence of extravasations. Access discontinued per protocol. Discharge Plan: Discharge instructions reviewed with: Patient and Family. Patient and/or family verbalized understanding of discharge instructions and all questions answered. Copy of AVS reviewed with patient and/or family. Patient will return prn for next appointment. Patient discharged in stable condition accompanied by: self and . Departure Mode: Ambulatory. Clemencia Yusuf, RN documented in this encounter Plan of Treatment Not on filedocumented as of this encounter Procedures Procedure Name Priority Date/Time Associated Diagnosis Comme nts TRANSFUSE RED BLOOD Routine 02/09/2019 8:31 AM Myeloproliferat otoniel disorder CELL UNIT CDT (H) documented in this encounter Results Transfuse red blood cell unit (02/09/2019 10:42 AM CDT) Dylon Cr MD IP NURSING BLOOD ADMINISTRAT ON Transfuse red blood cell unit (02/09/2019 10:42 AM CDT) Dylon Cr MD IP NURSING BLOOD ADMINISTRAT ON ABO/Rh type and screen (02/08/2019 2:44 PM CDT) [facility] Method Time Signature Units Ordered 1 02/08/2019 [place] 3:58 PM CDT [facility] ABO A 02/08/2019 [facility] 3:25 PM CDT [facility] RH(D) Pos [facility] Antibody Neg 02/08/2019 [facility] Screen 3:25 PM [facility] Test Valid [place] 02/08/2019 [facility] Only [facility] 3:58 PM CDT [facility] Specimen 02/11/2019 02/08/2019 [facility] Expires 3:58 PM [facility] Crossmatch Red Blood 02/08/2019 [place] Cells 3:58 PM [facility] Specimen Anatomical Collection Method Collection Time Receive d Time (Source) Location / / Volume Laterality Blood specimen 02/08/2019 2:44 PM 019 2:45 (specimen) CDT PM CDT Dylon Cr MD LAB - BLOOD BANK TEST ORDER Performing Organization Address City/State/ZIP Code Phon e Number M [facility] [address] [place], [place] [address] [facility] [address] [place], [place] 5533 [facility] [phone] documented in this encounter Visit Diagnoses Diagnosis 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
--- OUTSIDE RECORDS SUMMARY | 2022-05-02 12:18 | XMS_ITS | Encounter Summary ---
:1970 Author Organization [place] Address [address] [place] [address] Care Team Providers Name Role Phone No Ref-Primary, Physician Primary Care Provider [phone] Candida Epps MD Unavailable Shala Bell RN Unavailable Unavailable Reason for Referral Diagnostic Imaging NM (Routine) - Closed Specialty Diagnoses / Procedures Referred By Contact Refer red To Contact Radiology. Diagnoses SOB (shortness of breath) ROCHE (dyspnea on exertion) Ronaldo Cheatham MD Nuclear Medicine Procedures NM Lung Scan Ventilation and Perfusion [address] [facility] [address] [address] Phone: Referral ID Status Reason Start Date Expiration Date Visits Requ ested Visits Authorized [id number] Closed 03/10/2019 03/09/2020 1 1 Reason for Visit Diagnostic Imaging NM (Routine) - Closed Specialty Diagnoses / Procedures Referred By Contact Refer red To Contact Radiology. Diagnoses SOB (shortness of breath) ROCHE (dyspnea on exertion) Ronaldo Cheatham MD Nuclear Medicine Procedures NM Lung Scan Ventilation and Perfusion [address] [facility] [address] [address] Phone: Referral ID Status Reason Start Date Expiration Date Visits Requ ested Visits Authorized [id number] Closed 03/10/2019 03/09/2020 1 1 Encounter Details Date Type Department Care Team Description 03/12/2019 [facility] Imaging MD Robert ROCHE (dyspnea on exertion) [address] [address] [place], [place] [phone] Social History Tobacco Use Types Packs/Day Years [...] Priority Date/Time Associated Comments Diagnosis NM LUNG SCAN Routine 03/12/2019 1:51 PM SOB (shortness of Resu lts for this VENTILATION AND CDT breath) procedure are in PERFUSION ROC[place] (dyspnea on the results exertion) section. documented in this encounter Results NM Lung Scan Ventilation and Perfusion (03/12/2019 [...] Anterior, posterior, MONTERO, R PO, LPO, and ??SETSWANA projections. Comparison: Radiograph 03/12/19 Findings: The ventilation [...] Anterior, posterior, MONTERO, R PO, LPO, and SETSWANA projections. Comparison: Radiograph 03/12/19 Findings: The ventilation and perfusion studies do not demonstrate mismatch perfusion defects. There is some some mi ld decreased uptake peripherally in the right lung but this is matched on ventilation as well. Impression: 1. Pulmonary emboli is not present. I have personally reviewed the examinati on and initial interpretation and I agree with the findings. BOAZ JUAREZ MD Ronaldo Cheatham MD IMG NM ORDERABLES documented in this encounter Visit Diagnoses Diagnosis SOB (shortness of breath) Shortness of breath ROCHE (dyspnea on exertion) Other dyspnea and respiratory abnormalit y documented in this encounter Administered Medications Inactive Administered Medications - up to 3 most recent administrations Medication Order MAR Action Action Date Dose Rate Site technetium pentetate Tc99m Given 03/12/2019 1:28 PM CDT 2 millic uries (DTPA) inhaled radioisotope 2 millicurie 2 millicurie, Inhalation, ONCE, On Fri03/12/19 at 1300, For 1 dose technetium pertechnetate with Given 03/12/2019 1:28 PM CDT 6.8 m illicuries albumin (Tc99m MAA) radioisotope injection 4.8-7.2 millicurie 4.8-7.2 millicurie, Intravenous, ONCE, On Fri03/12/19 at 1300, For 1 dose documented in this encounter Care Teams Sample Finisher Relationship Specialty Start Date End Date No Ref-Primary, PCP - General 09/30/17 Physician Candida Epps MD MD Internal Medicine 01/15/[address] [place] [address] Shala Bell, HELENE Specialty Care Hematology & Oncology 01/15/19 07/23/21 Coordinator documented as of this encounter
--- OUTSIDE RECORDS SUMMARY | 2022-05-02 12:18 | XMS_ITS | Encounter Summary ---
:1970 Author Organization [place] Address [address] [place] [address] Care Team Providers Name Role Phone No Ref-Primary, Physician Primary Care Provider [phone] Candida Epps MD Unavailable Shala Bell RN Unavailable Unavailable Reason for Referral Diagnostic Imaging XR (Routine) - Closed Specialty Diagnoses / Procedures Referred By Contact Refer red To Contact Radiology. Diagnoses SOB (shortness of breath) ROC[place] (dyspnea on exertion) Ronaldo Cheatham MD Uu Xray Procedures X-ray Chest 2 vws* [address] [facility] 508 [address] [place] [id number] [address] [place] [address] Phone: Referral ID Status Reason Start Date Expiration Date Visits Requ ested Visits Authorized [id number] Closed 03/10/2019 03/09/2020 1 1 Reason for Visit Diagnostic Imaging XR (Routine) - Closed Specialty Diagnoses / Procedures Referred By Contact Refer red To Contact Radiology. Diagnoses SOB (shortness of breath) ROC[place] (dyspnea on exertion) Ronaldo Cheatham MD Uu Xray Procedures X-ray Chest 2 vws* [address] [facility] [address] [place] [id number] [address] [place] [address] Phone: Referral ID Status Reason Start Date Expiration Date Visits Requ ested Visits Authorized [id number] Closed 03/10/2019 03/09/2020 1 1 Encounter Details Date Type Department Care Team Description 03/12/2019 [facility] Imaging MD Robert ROCHE (dyspnea on exertion) [address] [facility] [address] [place] [address] [phone] Social History Tobacco Use Types Packs/Day Years [...] Name Priority Date/Time Associated Diagnosis Comme nts XR CHEST 2 VIEWS Routine 03/12/2019 12:47 PM SOB (shortness of Results for this CDT breath) procedure are in ROCHE (dyspnea on the results exertion) section. documented in this encounter Results X-ray Chest 2 vws* (03/12/2019 12:47 PM [...] agree with the findings. ARIA FAN MD Ronaldo Cheatham MD IM DIAGNOSTIC IMAGING ORDER NAGI documented in this encounter Visit Diagnoses Diagnosis SOB (shortness of breath) Shortness of breath ROCHE (dyspnea on exertion) Other dyspnea and respiratory abnormalit y documented in this encounter Care Teams Cash Reconciliation Specialist Relationship Specialty Start Date End Date No Ref-Primary, PCP - General 09/30/17 Physician Candida Epps MD MD Internal Medicine 01/15/19 420 [facility] [address] [place] [address] Shala Bell, HELENE Specialty Care Hematology & Oncology 01/15/19 07/23/21 Coordinator documented as of this encounter
--- OUTSIDE RECORDS SUMMARY | 2022-05-02 12:18 | XMS_ITS | Encounter Summary ---
:1970 Author Organization [place] Address [address] [place] [address] Care Team Providers Name Role Phone No Ref-Primary, Physician Primary Care Provider [phone] Candida Epps MD Unavailable Shala Bell RN Unavailable Unavailable Encounter Details Date Type Department Care Team Description 02/04/2019 Travel Social History Tobacco Use Types Packs/Day [...] on filedocumented in this encounter Care Teams Geological Technician Relationship Specialty Start Date End Date No Ref-Primary, PCP - General 09/30/17 Physician Candida Epps MD MD Internal Medicine 01/15/[address] [place] [address] [address] [place] [address] Shala Bell, HELENE Specialty Care Hematology & Oncology 01/15/19 07/23/21 Coordinator documented as of this encounter
--- OUTSIDE RECORDS SUMMARY | 2022-05-02 12:19 | XMS_ITS | Encounter Summary ---
:1970 Author Organization [place] Address [address] [place] [address] Care Team Providers Name Role Phone No Ref-Primary, Physician Primary Care Provider [phone] Candida Epps MD Unavailable Shala Bell RN Unavailable Unavailable Encounter Details Date Type Department Care Team Description 01/16/2019 Hospital Encounter [facility] Dylon Cr [place] [facility] MD Recovery and Short [facility] ONCOLOGY [address] [place] [address] [place] [address] (Wo rk) Social History Tobacco [...] Sign Reading Time Taken Comments Blood Pressure 137/64 01/16/2019 4:25 PM CDT Pulse 92 01/16/2019 4:25 PM CDT Temperature 36.7 ??C (98 ??F) 01/16/2019 4:25 PM CDT Respiratory Rate 18 01/16/2019 4:25 PM CDT Oxygen Saturation 97% 01/16/2019 3:07 PM CDT Inhaled Oxygen Concentration - - [...] documented as of this encounter Progress Notes Lisa Lozada RN - 01/16/2019 2:40 PM CDT Pt a&o, up indep in room, spouse at bedside. Pt ate lunch, denies pain. Blood infusing right arm, first unit received and pt has second unit infusing, no s/sx of reaction. Pt denies SOB or itching.Pt c/o being tired r/t low hbg. Pt vss. Continue to monitor and pt to discharge home after 2nd unit. documented in this encounter Miscellaneous Notes Plan of Care - Ifeanyi Jaime RN - 01/16/2019 4:30 PM CDT Pt discharging home at this time accompanied by pt's after receiving 2units of blood. No reaction noted from the blood transfusion. VSS on RA. Questions answered. documented in this encounter Plan of Treatment Not on filedocumented as of this encounter Procedures Procedure Name Priority Date/Time Associated Diagnosis Comme nts TRANSFUSE RED BLOOD Routine 01/16/2019 2:15 PM CELL UNIT CDT TRANSFUSE RED BLOOD Routine 01/16/2019 12:17 PM CELL UNIT CDT BLOOD COMPONENT Routine 01/16/2019 10:43 AM Resul ts for this CDT procedure are i n the results section. BLOOD COMPONENT Routine 01/16/2019 10:43 AM Resul ts for this CDT procedure are i n the results section. ABO/RH TYPE AND STAT 01/16/2019 10:43 AM Resul ts for this SCREEN CDT procedure are i n the results section. documented in this encounter Results Transfuse red blood cell unit (01/16/2019 4:30 PM CDT) Dylon Cr MD IP NURSING BLOOD ADMINISTRAT ON Transfuse red blood cell unit (01/16/2019 4:30 PM CDT) Dylon Cr MD IP NURSING BLOOD ADMINISTRAT ON Transfuse red blood cell unit (01/16/2019 3:11 PM CDT) Dylon Cr MD IP NURSING BLOOD ADMINISTRAT ON Blood component (01/16/2019 10:43 AM CDT) [place] [facility] Method Time Signature Unit Number [id number] 01/16/2019 [place] 11:50 AM CDT [facility] Blood Red Blood 01/16/2019 [place] Component Cells 11:50 AM CDT [facility] Reduced Division 00 01/16/2019 [facility] Number 11:50 AM CDT [facility] Status of Released to 01/17/2019 [place] Unit care unit 11:55 PM CDT [facility] Blood Product [id number] 01/16/2019 [facility] Code 11:50 AM CDT [facility] Unit Status ISS [facility] Specimen Anatomical Collection Method Collection Time Receive d Time (Source) Location / / Volume Laterality 01/16/2019 10:43 01/16/2019 AM CDT 10:44 AM CDT Dylon Cr MD LABORATORY Performing Organization Address City/State/ZIP Code Phon e Number M [facility] [address] [place] [address] [facility] [address] [place] [address], [place] [phone] Blood component (01/16/2019 10:43 AM CDT) [place] [facility] Method Time Signature Unit Number [id number] 01/16/2019 [place] 11:50 AM CDT [facility] Blood Red Blood 01/16/2019 [place] Component Cells 11:50 AM CDT [facility] Reduced Division 00 01/16/2019 [facility] Number 11:50 AM CDT [facility] Status of Released to 01/17/2019 [facility] care unit 11:55 PM CDT [facility] Blood Product [id number] 01/16/2019 [facility] Code 11:50 AM CDT [facility] Unit Status ISS [facility] Specimen Anatomical Collection Method Collection Time Receive d Time (Source) Location / / Volume Laterality 01/16/2019 10:43 01/16/2019 AM CDT 10:44 AM CDT Dylon Cr MD LABORATORY Performing Organization Address City/[facility]/ZIP Code Phon e Number M [facility] [address] [place] [phone] [facility] [address] [place] [phone], [facility] [phone] ABO/Rh type and screen (01/16/2019 10:43 AM CDT) [facility] gist Method Time Signature Units Ordered 2 01/16/2019 [place] 11:29 AM T [facility] ABO A 01/16/2019 [place] 11:49 AM T [facility] RH(D) Pos [facility] Antibody Neg 01/16/2019 [place] Screen 11:49 AM [facility] Test Valid [place] 01/16/2019 [place] Only At [facility] 11:29 AM T [facility] Specimen 01/19/2019 01/16/2019 [place] Expires 11:29 AM T [facility] Crossmatch Red Blood 01/16/2019 [place] Cells 11:29 AM [facility] Specimen Anatomical Collection Method Collection Time Receive d Time (Source) Location / / Volume Laterality Blood specimen 01/16/2019 10:43 9 (specimen) AM CDT 10:44 AM CDT Dylon Cr MD LAB - BLOOD BANK TEST ORDER Performing Organization Address City/State/ZIP Code Phon e Number M [facility] [address] [place] [phone] [facility] [address] [place] [address], [facility] [phone] documented in this encounter Visit Diagnoses Not on filedocumented in this encounter Administered Medications Inactive Administered Medications - up to 3 most recent administrations Medication Order MAR Action Action Date Dose Rate Site 0.9% sodium chloride BOLUS Intravenous, 1-250 mL, EVERY 1 HOUR PRN, To prime infusion tubing AND flush blood through tubing POST blood component administration., S tarting on 01/16/19 at 1010, IF blood component ordered, nurse to administer rate and volume of fluid pre-blood component administration to PRIME tubing AND to FLUSH blood through tubing post blood component administrati on UNTIL tubing is clear of visible blood. Use MINIMUM volume necessary for pre and post blood component administration. IF duplicate order nurse to discontinue the duplicate ord er. documented in this encounter Active and Recently Administered Medications Times are shown in CDT. PRN Medication Order 01/14/2019 01/15/2019 01/16/2019 0.9% sodium chloride BOLUS Intravenous, 1-250 mL, EVERY 1 HOUR PRN, To prime infusion tubing AND flush blood through tubing POST blood component administration., Starting 01/16/19 at 1010, IF blood component ordered, nurse to a dminister rate and volume of fluid pre-b lood component administration to PRIME tubing AND to FLUSH blood through tubing post blood component administration UNTIL tubing is clear of visible blood. Use TN NIMUM volume necessary for pre and post blood component administration. IF duplicate order nurse to discontinue the duplicate order. documented in this encounter Care Teams Engraver Jewelry Relationship Specialty Start Date End Date No Ref-Primary, PCP - General 09/30/17 Physician Candida Epps MD MD Internal Medicine 01/15/19 420 [facility] [address] [place] [address] Shala Bell, HELENE Specialty Care Hematology & Oncology 01/15/19 07/23/21 Coordinator documented as of this encounter
--- OUTSIDE RECORDS SUMMARY | 2022-05-02 12:19 | XMS_ITS | Encounter Summary ---
:1970 Author Organization [place] Address [facility] [place] [address] Care Team Providers Name Role Phone No Ref-Primary, Physician Primary Care Provider [phone] Encounter Details Date Type Department Care Team Description 12/16/2018 Infusion Therapy [facility] Edin Hu MD No Show Visit [facility] ONCOLOGY N Medical Ctr HEMATOLOGY [facility] [address] [facility] [facility] [address] [place] [address] [place] [address] [place] [address] [phone] Social History Tobacco Use Types Packs/Day Years [...] filedocumented in this encounter Care Teams Supervisor Tank House Relationship Specialty Start Date End Date No Ref-Primary, Physician PCP - General 09/30/17 documented as of this encounter
--- OUTSIDE RECORDS SUMMARY | 2022-05-02 12:19 | XMS_ITS | Encounter Summary ---
:1970 Author Organization [place] Address [address] [place] [address] Care Team Providers Name Role Phone No Ref-Primary, Physician Primary Care Provider Reason for Visit Reason Onset Date Comments *-*INCOMING RECORDS*-* 01/13/2019 MPD Encounter Details Date Type Department Care Team Description 01/13/2019 PRE VISIT [facility] Candida Epps MD *-*INCOMING RECORDS*-* Blood and Marrow RUST (MPD) Transplant Program [place] [address] [place] [address] [phone] (Wo rk) Social History Tobacco Use Types [...] this encounter Miscellaneous Notes Telephone Encounter - Iain Lynch - 01/04/2019 8:10 AM CDT RECORDS STATUS - ALL OTHER DIAGNOSIS RECORDS RECEIVED FROM: [facility] DATE RECEIVED: 01/04/19 NOTES STATUS DETAILS OFFICE NOTE from referring provider Epic OFFICE NOTE from medical oncologist DISCHARGE SUMMARY from hospital Epic DISCHARGE REPORT from the ER Epic OPERATIVE REPORT Epic MEDICATION LIST Epic CLINICAL TRIAL TREATMENTS TO DATE LABS PATHOLOGY REPORTS Epic 09/13/18 ANYTHING RELATED TO DIAGNOSIS GENONOMIC TESTING TYPE: [facility] Next Gen Sequencin09/14/15, 08/28/15 IMAGING (NEED IMAGES & REPORT) CT SCANS PACS MRI MAMMO ULTRASOUND PET documented in 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 Care Teams Gold Buyer Relationship Specialty Start Date End Date No Ref-Primary, Physician PCP - General 09/30/17 documented as of this encounter
--- OUTSIDE RECORDS SUMMARY | 2022-05-02 12:19 | XMS_ITS | Encounter Summary ---
:1970 Author Organization [place] Address [address] [place] [address] Care Team Providers Name Role Phone No Ref-Primary, Physician Primary Care Provider [phone] Candida Ramirez MD Unavailable Shala Bell RN Unavailable Unavailable Reason for Visit Reason Comments RECHECK Myeloproliferative disorder here for bmbx Encounter Details Date Type Department Care Team Description 01/22/2019 Office Visit [facility] Candida Ramirez MD [facility] [address] [place] [address] Myeloproliferative [facility] Pauline Campbell, PA-C [address] [facility] [place], [place] [id number] disorder (H) (Primary Dx) Clinic [address] [place] [address] Social History Tobacco Use Types [...] Sign Reading Time Taken Comments Blood Pressure 125/73 01/22/2019 11:49 AM CDT post BMB X Pulse 72 01/22/2019 11:49 AM CDT Temperature 36.7 ??C (98 ??F) 01/22/2019 9:43 AM CDT Respiratory Rate 26 01/22/2019 9:43 AM CDT Oxygen Saturation 100% 01/22/2019 11:49 AM CDT Inhaled Oxygen Concentration - - Weight 95 kg (209 lb 8 oz) 01/22/2019 9:43 AM CDT Height - - Body Mass Index 31.85 11/09/2018 4:35 PM CDT documented in this encounter Progress Notes Pauline Campbell - 01/22/2019 10:00 AM CDT BMT ONC Adult Bone Marrow Biopsy Procedure Note January 22, 2019 BP 141/87 (BP Location: Right arm, Patient Position: Sitting) Pulse 80 Temp 98 ??F (36.7 ??C) (Oral) Resp 26 Wt 95 kg (209 lb 8 oz) SpO2 100% BMI 31.85 kg/m?? Learning needs assessment complete within 12 months? YES DIAGNOSIS: Myelofibrosis PROCEDURE: Unilateral Bone Marrow Biopsy and Unilateral Aspirate [place] [facility] [place] [facility] [place] Patient???s identification was positively verified by verbal identification and invasive procedure safety checklist was completed. Informed consent was obtained. Following the administration of Midazolam as pre-medication, patient was placed in the right lateral decubitus position and prepped and draped in a sterile manner. Approximately 15 cc of 1% Lidocaine was used over the left posterior iliac spine. Following this a 3 mm incision was made. Trephine bone marrow core(s) was (were) obtained from the [facility]. Bone marrow aspirates were obtained from the [facility]. Aspirates were sent for morphology, immunophenotyping, cytogenetics/FISH, NGS and [facility] SNP array. A total of approximately 25 ml of marrow was aspirated. Following this procedure a sterile dressing was applied to the bone marrow biopsy site(s).The patient was placed in the supine position to maintain pressure on the biopsy site. Post-procedure wound care instructions were given. Complications: NO Post-procedural pain assessment: 0 out of 10 on the numeric pain rating scale. Interventions: NO Length of procedure:21 minutes to 45 minutes Procedure performed by: Pauline Campbell PA-C documented in this encounter Nursing Notes Endy Carter RN - 01/22/2019 10:00 AM CDT Oncology Rooming Note January 22, 2019 9:47 AM Jennifer Mendez is a 48 year old female who presents for: Chief Complaint Patient presents with ??? RECHECK Myeloproliferative disorder here for bmbx Initial Vitals: BP 141/87 (BP Location: Right arm, Patient Position: Sitting) Pulse 80 Temp 98 ??F (36.7 ??C) (Oral) Resp 26 Wt 95 kg (209 lb 8 oz) SpO2 100% BMI 31.85 kg/m?? Estimated bodymass index is 31.85 kg/m?? as calculated from the following: Height as of 11/09/18: 1.727 m (5' 8). Weight as of this encounter: 95 kg (209 lb 8 oz). Body surface area is 2.13 meters squared. Extreme Pain (8) Comment: Data Unavailable No LMP recorded. Patient is postmenopausal. Allergies reviewed: Yes Medications reviewed: Yes Medications: Medication refills not needed today. Pharmacy name entered into [employer]: Data Unavailable Clinical concerns: Nausea Endy Carter RN Endy Carter RN - 01/22/2019 10:00 AM CDT BMT Teaching Flowsheet Teaching Topic: post biopsy instructions Person(s) involved in teaching: Patient Motivation Level Asks Questions: Yes Eager to Learn: Yes Cooperative: Yes Receptive (willing/able to accept information): Yes Patient demonstrates understanding of the following: - Reason for the appointment, diagnosis and treatment plan: Yes - Knowledge of proper use of medications and conditions for which they are ordered (with special attention to potential side effects or drug interactions): Yes - Which situations necessitate calling provider and whom to contact: Yes Teaching concerns addressed: reviewed activity restrictions if received premeds, potential for bleeding and actions to take if develops any of the issues below Proper use and care of (medical equipment, care aids, etc.) Yes Pain management techniques: Yes Patient instructed on hand hygiene: Yes How and/when to access community resources: Yes Infection Control: Patient demonstrates understanding of the following: Surgical procedure site care taught NA Signs and symptoms of infection taught Yes Wound care taught Yes Teaching concerns addressed: Bone marrow biopsy and infection prevention. ?? Instructional Materials Used/Given: Pt instructed to keep bmbx site clean and dry for 24hrs. Pt educated to monitor site for signs of infection such as redness, rash, oozing, puss, bleeding, pain, and elevated temp. Pt instructed to go to ER if any signs of infection should occur. Pt educated to not operate machinery due to receiving versed. Pt and verbalize understanding. ?? Post procedure: Pt vss, ambulating, site is c,d,i. PIV d/c'd. 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 ?? Time spent with patient: 0 minutes. documented in this encounter Plan of Treatment Not on filedocumented as of this encounter Procedures Procedure Name Priority Date/Time Associated Diagnosis Comme nts HC DX BONE MARROW Routine 01/22/2019 11:22 Myeloproliferative BIOPSY(IES) & AM CDT disorder (H) ASPIRATION(S) LEUKEMIA LYMPHOMA Routine 01/22/2019 11:09 Myeloproliferative Results for this EVALUATION NON CSF AM CDT disorder (H) procedure are in the results section. FISH Routine 01/22/2019 11:09 Myeloproliferative Resul ts for this AM CDT disorder (H) procedure are i n the results section. ONCOLOGY Routine 01/22/2019 11:09 Myeloproliferative Resul ts for this CHROMOSOMAL AM CDT disorder (H) procedure are i n MICROARRAY (COPY the results NUMBER/SNP) section. NEXT GENERATION Routine 01/22/2019 11:09 Myeloproliferative Re sults for this SEQUENCING ONCOLOGY AM CDT disorder (H) procedur e are in the results section. CHROMOSOME Routine 01/22/2019 11:09 Myeloproliferative Resul ts for this ANALYSIS, BONE AM CDT disorder (H) procedure are in MARROW, the results DIAGNOSIS/RELAPSE section. BONE MARROW BIOPSY Routine 01/22/2019 11:01 Myeloproliferative Results for this AM CDT disorder (H) procedure are i n the results section. CBC WITH PLATELETS Timed 01/22/2019 10:00 Myeloproliferative Results for this & DIFFERENTIAL AM CDT disorder (H) procedure are in the results section. documented in this encounter Results Next Generation Sequencing Oncology: Individual Genes; IDH1 (SRSF2, ASXL1 ) (01/22/2019 11:09 AM CDT) Component Value Ref Test Analysis Performed Pathologis t Range Method Time At [facility] Patient Name: JENNIFER MENDEZ Report MR#: [id number] Specimen #: [id number] Collected: 01/22/2019 11:09 Received: 01/22/2019 13:20 Reported: 02/04/2019 18:13 Ordering Phy(s): CANDIDA RAMIREZ Additional Phy(s): Copy to [facility] PAULINE CAMPBELL Copy To: TAMANNA For improved result formatting, select 'View Enhanced Report Format' under Linked Documents section. TEST(S) REQUESTED: Next Generation Sequencing Childnic-JOH9-JLGH5-ASXL1 SPECIMEN DESCRIPTION: Bone Marrow (Left) SIGNIFICANT RESULTS --------- Detected Alterations of Known or Potential Pathogenicity: CA LR K385fs, SF3B1 K666R, SF3B1 K700E Detected Alterations of Uncertain Significance: None Genes with No Detected Alterations of the Amino Acid Sequenc e: ABL1, ALK, ASXL1, BCOR, CBL, CEBPA, CSF3R, DNMT3A, ETV6, EZH2, FLT3, GATA1, GATA2, HRAS, IDH1, IDH2, JA K1, JAK2, JAK3, KIT, KMT2A, KRAS, MPL, NF1, NPM1, NRAS, PDGFRA, PDGFRB, PHF6, PTPN11, JAZMINE, RUNX1, SETBP1, SF1 , SF3A1, SH2B3, SRSF2, TET2, TP53, U2AF2, WT1, ZRSR2 --------- INTERPRETATION OF RESULTS The following variants were detected in this sample: 1. CALR p.K385fs 2. SF3B1 p.K666R 3. SF3B1 p.K700E A variant of uncertain significance, ABL1 p.O452ast, was als o detected. Note, that we are unable to determine if the two SF3B1 varia nt are in cis or trans. No other pathogenic variants were identified in the genes li sted above. Concurrent morphologic studies show evidence of persistent m yeloid neoplasm with panmyelosis, atypical megakaryocytes, dysplastic erythroid precursors with ringed sideroblasts and increase marrow fibrosis ([id number]). SF3B1 is the most commonly mutated gene found in MDS (20-33% of MDS overall). ??SF3B1 mutations tend to occur in exons 13-16 and appear to be enriched at codons Dkt534, L ys666, Jjg057, Ktc443 and Bqp840. ??SF3B1 mutations are highly associated with subtypes of MDS characterized by ring sideroblasts (MDS with ring sideroblasts and MDS with multilineage dysplasia and ring sideroblasts) and p resent in ~80% of these patients. ??In addition, many cases (60-80%) of myelodysplastic/myeloproliferative ne oplasm with ring sideroblast and thrombocytosis (MDS/MPN-RS-T) harbor SF3B1 mutations (Maher et al, 2019; PMI D: [id number]). SF3B1 commonly coexists with a JAK2 V617F (50% to 65%), or less commonly a CALR or MPL mutation (<10%) (Ismael EF and Mich R, 2017; PMID: 05240010). Patients with CALR-mutated myelofibrosis may derive benefit from therapy with the ELSI inhibitor, ruxolitinib (Freddy Ríos et al, 2016, PMID: 25718216, Miranda rosario, 2017, PMID: 99659063), although in this patient this drug was without effect per Epic records. GENETIC ALTERATIONS --------- Detected Alterations of Known or Potential Pathogenicity --------- Gene: CALR Alteration: K385fs c.1154_1155insTTGTC Type of Alteration: Insertion - Frameshift Significance: Pathogenic Therapeutic Implications*: None Additional Information: COSMIC: [id number] Allele Frequency: 0.0% dbSNP: [id number] References: Andina H, Dean T, Kayla K, Mary G, Jermaine A, Bowen byrd M, Katia A, Wes J, Mana J, Yoni M, Zuri A, Juanito P, Mercy A, Analia T. Distinct clinical characte ristics of myeloproliferative neoplasms with calreticulin mutations. Haematologica. 2014 Jan;99(7):1184-9 0. doi: 10.3324/haematol.2014.320871. Epub 2013Dec 14. PubMed PMID: 45466452; PubMed Central PMCID: DDQ26126 79. Gene: SF3B1 Alteration: K700E c.2098A>G Type of Alteration: Substitution - Missense Significance: Likely Pathogenic Therapeutic Implications*: None Additional Information: COSMIC: [id number], [id number] Allele Frequency: 0.0% dbSNP: [id number] Comment: SF3B1 (p.Sql482Fly) is a missense variant that has been reported in COSMIC database numerous times in hematopoietic and other malignancies. It has also been class ified as likely pathogenic by a single submitting laboratory in Clinvar cancer database. It has been reported in [employer] database in 21 heterozygotes and no homozygotes. The in silico prediction models (SIFT/provean) predict this variant to be damaging. Published literature describes in vitro and in vivo pre-clinical data demonstrating a pathogenic effect for this variant in respect to MDS phenotypes (PMID: 38990690). Based on juliethai lable information this variant is classified as likely pathogenic. Gene: SF3B1 Alteration: K666R c.1996A>G Type of Alteration: Substitution - Missense Significance: Likely Pathogenic Therapeutic Implications*: None Additional Information: COSMIC: [id number], [id number] Allele Frequency: 0.0% dbSNP: [id number] References: Herbert S, Roman A, Tino A, Inga T, Gavin Dillon, Jose Luis E, Luther F, Enrique A, Ozzie S, Temo S, Padilla M, Brittnee TARANGO. Cancer-associated SF3B1 mutations affect alternative splicing by promoting alternative branchpoint usage. F[employer] Commun. 2016 Fe b 4;7:84822. doi: 10.1038/omglng12165. PubMed PMID: 84836200; PubMed Central PMCID: THD8131623. Comment:SF3B1 c.1996A>G (p.Wdv247Wgd) is a missense variant that has been reported in COSMIC database dozens of times in hematopoietic and other malignancies. It has als o been classified as likely pathogenic by a single submitting laboratory in the Clinvar database. Laboratory ev idence demonstrates that this variant impacts the function of SF3B1 in splicing regulation. Based on available information this variant is classified as likely pathogenic. --------- Detected Alterations of Uncertain Significance --------- None SELECTED ALTERATION DETAILS --------- --------- CALR K385fs --------- Nucleotide Change: ??c.1154_115insTTGTC Type of Alteration: ??Insertion - Frameshift About this gene: ??Calreticulin (CALR) is a calcium-binding protein that functions in calcium storage and director industrial museum regulation. Missense mutations, silent mutatio ns, nonsense mutations, and frameshift insertions and deletions are observed in cancers such as colorectal can cer, leukemias, myeloproliferative neoplasms, and stomach cancer. Mutation location in gene and/or protein: ??C-terminal domai n (exon 9). Effect of mutation: ??The CALR K385fs*47 mutation, also refe rred to as a type 2 mutation, is the second-most frequently occurring somatic mutation in the CALR gene (COSM IC) following CALR L367fs*46. This mutation causes a 5-bp insertion and a frameshift (TTGTC) in exon 9, leading to a loss of about half of the negatively charged amino acids from the C-terminus of the CALR protein (PMID: 2 [id number]), leading to an altered subcellular localization signal. References: ??https://[email or web address].BIG [email or web address]/content/gene/ca lr/ --------- SF3B1 K666R --------- Nucleotide Change: ??c.1996A>G Type of Alteration: ??Substitution - Missense About this gene: ??Splicing factor 3b, subunit 1, 155kDa (SF 3B1) is a gene that codes for part of the splicing factor 3b protein complex, splicing factor 3B subunit 1 (Gen e 2014). The complex is a member of the spliceosome and is involved in director industrial museum and mRNA proces sing (Gene 2014). Spliceosome mutations are observed in MDS, chronic lymphocytic leukemia (CLL), AML, an d chronic myelomonocytic leukemia (CMML), and these mutations can cause abnormal expression patterns of so me genes involved in cancer pathogenesis (PMID: 90487323). Pathways: ??RNA splicing References: ??https://www.B[employer] Launcher.org/content/gene/sf 3b1/ --------- SF3B1 K700E --------- Nucleotide Change: ??c.8A>G Type of Alteration: ??Substitution - Missense About this gene: ??Splicing factor 3b, subunit 1, 155kDa (SF 3B1) is a gene that codes for part of the splicing factor 3b protein complex, splicing factor 3B subunit 1 (Gen e 2014). The complex is a member of the spliceosome and is involved in director industrial museum and mRNA proces sing (Gene 2014). Spliceosome mutations are observed in MDS, chronic lymphocytic leukemia (CLL), AML, an d chronic myelomonocytic leukemia (CMML), and these mutations can cause abnormal expression patterns of so me genes involved in cancer pathogenesis (PMID: 89190522). Pathways: ??RNA splicing References: ??[email or web address]://www.Viraloidgenome.org/content/gene/sf 3b1/ TEST DETAILS --------- Coverage --------- Unless otherwise reported, all positions in the genes ordere d were sequenced at or greater than 125x. If any genes were sequenced at <125x coverage, the gene and the fra ction of that gene sequenced at 125x is listed below. Mutations present at low variant allele fractions (VA Fs) in lower coverage positions cannot be formally excluded. SF1 (0.97) --------- Methodology --------- Genomic DNA is extracted from the sample, library preparatio n is mediated by tagmentation following Nextera protocols, and target enrichment is performed by hybrid capt ure using [employer] customized baits and Illumina Rapid capture reagents per accident investigator's protocol. The enriched l ibraries are sequenced on an Illumina MiSeq (using version 3 chemistry). FASTQ files are processed through a cu stomized bioinformatic pipeline including CutAdapt, PandaSeq, BWA, and Freebayes. Variant call files ( VCF) are uploaded to [employer] software for variant filtering, annotation, and reporting. Additional inf ormation regarding these methods including the assay bedfile is available upon request. The following types of variants are not included in the clin ical report, but information about these variants is available upon request: *Variants that are present at >1% MAF in population database s AND are not reported as pathogenic/likely pathogenic in ClinVar. *Variants with a MAF <1%, that were interpreted to be benign or likely benign variants. *Intronic variants that reside more than 2 bases from the ex on/intron boundary AND are not reported as pathogenic/likely pathogenic. *Untranslated region (UTR) variants not previously categoriz ed as pathogenic or likely pathogenic in relevant clinical databases. *Some variants may be excluded if interpreted as technical a rtifacts based on review of sequencing quality data. --------- Limitations --------- This assay has been validated to detected single nucleotide variants (SNVs) and insertion-deletions (indels) less than or equal to 30bp that are present at 5% or greater variant allele fraction (VAF). Based on these sensitivities, tumor cell population must comprise at least 10% of the submitted specimen. Specimens with borderline tumor cellularity may lead to false negative resu lts. Caution is advised for the interpretation of negative results in these situations, and correlation with m orphology and other laboratory results is recommended to ensure adequate representation of the cell po pulation of interest. Please note also that large indels (>30bp) may not be detected in this assay. Additional information from the validation of this assay regarding the detection of low VAF variants and/or large ind els is available upon request. --------- Disclaimer --------- This test was developed and its performance characteristics determined by the [facility]. It has not been cl eared or approved by the FDA. The laboratory is regulated under CLIA as qualified to perform high-complexity testing. This test is used for clinical purposes. It should not be regarded as investigational or for research . This test was developed and its performance characteristics determined by the [facility] and the [facility] (Cancer & Cardiovascular Research Building Room 1210, [address] [place] [address]). Genomic DNA extraction, library preparation, sequencing, and interpretation of [employer] data is performed at [facility]. This test has not been cleared or approved by the FDA. The laboratory is regulated under CLIA as qualified to perform h igh-complexity testing. This test is used for clinical purposes. It should not be regarded as investigatio nal or for research. A resident/fellow in an accredited training program was invo lved in the selection of testing, review of laboratory data, and/or interpretation of this case. I, as t he senior physician, attest that I: (i) confirmed appropriate testing, (ii) examined the relevant raw data for the specimen(s); and (iii) rendered or confirmed the interpretation(s). --------- [employer] Disclaimer --------- This report was produced using software licensed by [employer]. [employer] software is designed to be used in clinical applications solely as a tool to enhance wa dical utility and improve operational efficiency. The use of [employer] software is not a substitute for wa dical judgment and [facility] in no way holds itself out as having or providing independent medical judgme nt or diagnostic services. [employer] is not liable with respect to any treatment or diagnosis made in co nnection with this report. [employer] Rules Version: rules-0009O GenWorkMeIncology Application Version: [id number]_ --------- Electronic Signature --------- Electronically signed/cosigned by: Alejandro Andrews MD, PhD 02/04/2019 Electronically Signed Out By: Alejandro Andrews M.D., [facility] CPT Codes: A: [id number], [id number], [id number] TESTING LAB LOCATION: [facility] [address] [facility] [address] [place] [address] COLLECTION SITE: Client: ??[facility], [place] Location: ??[place] (B) Specimen Anatomical Collection Method Collection Time Receive d Time (Source) Location / / Volume Laterality Bone marrow BONE MARROW 01/22/2019 11:09 01/22/2019 1:20 specimen STRUCTURE / AM CDT PM CDT (specimen) Unknown Candida Ramirez MD LAB - GENOMICS Performing Organization Address City/State/ZIP Code Phon e Number [facility] SNP ARRAY for Oncology (01/22/2019 11:09 AM CDT) Component Value Ref Test Analysis Performed At [facility] Range Method Time Signature Copath Report Patient Name: JENNIFER MENDEZ MR#: [id number] Specimen #: [id number] Collected: 01/22/2019 11:09 Received: 01/22/2019 15:16 Reported: 01/28/2019 11:38 Ordering Phy(s): CANDIDA RAMIREZ Additional Phy(s): RAFI CAMPBELL Copy to [facility] For improved result formatting, select 'View Enhanced Report Format' under Linked Documents section. TEST(S) REQUESTED: [facility] for oncology with SNP SPECIMEN DESCRIPTION: Bone Marrow Aspirate CLINICAL COMMENTS: MF - eval for MDS cytogenetic abnormalities A bone marrow specimen was received in the [facility]ogenetics [facility] on 01/22/2019 with orders for Bone marrow Chromosome Analysis, FISH and [facility] with SNP for oncology. ??D ue to the hypocellular nature of ??this specimen, microarray testing could not be performed. Billing Comment: Credit Microarray in full 01/26/2019. Electronically Signed Out By: BRUNO Technical SupervisorCPT Codes: A: [id number], [id number], 52890-[id number] <CR>, [id number] -EXTPURE <CR> TESTING LAB LOCATION: [facility] [address], [facility] [address] [place] [address] COLLECTION SITE: Client: ??[facility] Location: ??[place] (B) Specimen Anatomical Collection Method Collection Time Receive d Time (Source) Location / / Volume Laterality Bone marrow 01/22/2019 11:09 01/22/2019 3:16 specimen AM CDT PM CDT (specimen) Candida PEARSON - PK ZIMMERMAN Performing Organization Address City/State/ZIP Code Phon e Number [facility] FISH With Professional Interpretation (01/22/2019 11:09 AM CDT) Component Value Ref Test Analysis Performed At [facility] Range Method Time Signature Copath Report Patient Name: JENNIFER MENDEZ MR#: [id number] Specimen #: [id number] Collected: 01/22/2019 11:09 Received: 01/22/2019 15:16 Reported: 02/11/2019 18:15 Ordering Phy(s): CANDIDA RAMIREZ Additional Phy(s): Copy to [facility] RAFI CAMPBELL For improved result formatting, select 'View Enhanced Report Format' under Linked Documents section. 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 A G-banding analysis is pending; upon completion, results of that study will be issued as a separate report ([id number]). ISCN: nuc adrian([id number])[104/200] PREVIOUS STUDIES: Date ??(Study ID) ?[id number] 09-13-16 ??([id number]) ? 15% BM: bone marrow Control ranges: [id number]: 0-3.3% Analyte Specific Reagents (ASRs) are used in many laboratory tests necessary for standard medical care and generally do not require FDA approval. ??This test was devel oped and its performance characteristics determined by the [facility]. ??It has not been cleared or approved by the U.S. Food and Drug Administration. Electronically Signed Out By: Rajani Ferreira M.D., [facility] Codes: A: 62519-XDCW, 54691-CSEAZ TESTING LAB LOCATION: [address] [phone] COLLECTION SITE: Client: ??[facility] Location: ??[place] (B) Specimen Anatomical Collection Method Collection Time Receive d Time (Source) Location / / Volume Laterality Bone marrow BONE MARROW 01/22/2019 11:09 01/22/2019 3:16 specimen STRUCTURE / AM CDT PM CDT (specimen) Unknown Candida ZIMMERMAN Performing Organization Address City/State/ZIP Code Phon e Number COPATH CHROMOSOME BONE MARROW With Professional Interpretation (01/22/2019 11:09 AM CDT) Component Value Ref Test Analysis Performed At [facility] Range Method Time Signature Copath Report Patient Name: JENNIFER MENDEZ MR#: [id number] Specimen #: [id number] Collected: 01/22/2019 11:09 Received: 01/22/2019 15:16 Reported: 02/17/2019 23:44 Ordering Phy(s): CANDIDA RAMIREZ Additional Phy(s): RAFI NOLEN Copy to Special Hematology PAULINE CAMPBELL For improved result formatting, select 'View Enhanced Report Format' under Linked Documents section. TEST(S) REQUESTED: Bone Marrow Chromosome Analysis SPECIMEN DESCRIPTION: Bone Marrow Aspirate CLINICAL COMMENTS: MPD - eval for MDS cytogenetic abnormalities Metaphases analyzed: ?20 Additional metaphases screened: ?0 Metaphases karyotyped: ? 2 Banding utilized: ?G-banding Band resolution: ? < 400 - 400 Karyotypically normal cells: ? 6 Karyotypically abnormal cells: ? 14 METHODS: Unstimulated, 24 hour culture. ISCN: 46,XX,del(13)(q12q14)[14]/46,XX[6] INTERPRETATION: Fourteen (70%) of the 20 metaphase cells analyzed by G-marquita ng comprised a clone characterized by an interstitial deletion within the long arm of one chromosome 13, extending from band 13q12 to 13q14. No clonal abnormality was found among the remaining 6 (30%) metaphases . These findings confirm and expand those of the previously re ported FISH analysis ([id number]) that showed 52% of the interphase cells examined to have only one [id number] si gnal present. 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 Since the previous study ([id number] from 09-14-15), there has been expansion but no evolution of this c lone. Electronically Signed Out By: Rajani Ferreira M.D., [facility] Codes: A: 46572-PYDEH, 74042-DEDHF, 06736-XLFVZTQ, 02011-VETBXA TESTING LAB LOCATION: [facility] [address], [facility] [address] [place] [phone] COLLECTION SITE: Client: ??[facility] Location: ??CIRAJEFF (B) Specimen Anatomical Collection Method Collection Time Receive d Time (Source) Location / / Volume Laterality Bone marrow BONE MARROW 01/22/2019 11:09 01/22/2019 3:16 specimen STRUCTURE / AM CDT PM CDT (specimen) Unknown Candida ZIMMERMAN Performing Organization Address City/State/ZIP Code Phon e Number [place] Leukemia Lymphoma Evaluation (Flow Cytometry) (01/22/2019 11:09 AM CDT) Component Value Ref Test Analysis Performed At [facility] Range Method Time Signature Copath Report Patient Name: JENNIFER MENDEZ MR#: [id number] Specimen #: [id number] Collected: 01/22/2019 11:09 Received: 01/22/2019 12:19 Reported: 01/22/2019 14:36 Ordering Phy(s): CANDIDA RAMIREZ For improved result formatting, select 'View Enhanced Report Format' under Linked Documents section. SPECIMEN(S): Bone Marrow, Left INTERPRETATION: Bone Marrow, Left: ? No increase in myeloid blasts and no abnormal myeloid blast population COMMENT: A blast count by flow cytometry may differ from a morphologi c blast count for various reasons including lysis of erythroid precursors, the presence of other cells in the blast gate, and sampling differences. This sample may not be key account representative. For classification purposes, the morphologic blast count should be used. Final interpretation requires correlation with results of other an cillary studies, morphologic, and clinical features. RESULTS: Percentages reported below are based on the total number of CD45 positive viable leukocytes. The granulocyte gate encroaches on the blast gate. 3.3% cells in the blast gate (CD45 dim and low side scatter blast gate). There is no aberrant immunophenotype on the myeloid blasts. 2.7% CD34 positive blasts Resident/Fellow Review by: ??Dr. Reyes Arries A resident/fellow in an ACGME accredited training program wa s involved in the selection of testing, review of flow scattergrams, and/or interpretation of this case. I, as the senior physician, attest that I: (i) confirmed appropriate testing, (ii) examined the relevant fl ow scattergrams for the specimen(s); and (ii) rendered or confirmed the interpretation(s). ANTIBODIES: Ten color analyses are performed for the following antigens: CD3, CD7, CD10, CD11b, CD13, CD14, CD15, CD16, CD19, CD33, CD34, CD38, CD45, CD56, CD64, CD117, and HLA-DR. Cells are gated to isolate populations (CD45 versus side scatter and forward scatter versus side scatter) , to exclude debris (forward scatter versus side scatter) and to exclude cell doublets (forward scatter heigh t versus forward scatter width and side scatter height versus side scatter width). Forward scatter varies wi th cell size. Side scatter varies with the amount of cytoplasmic granules. Intensity for CD45 usually increase s as hematolymphoid cells mature. CLINICAL HISTORY: 48 year old female with a history of myelofibrosis and ringe d sideroblasts I have personally reviewed all specimens and/or slides, incl uding the listed special stains, and used them with my medical judgment to determine the final diagnosis. Electronically signed out by: Aleyda Early M.D., [facility] This test was developed and its performance characteristics determined by [facility]. It has not been lamine red or approved by the US Food and Drug Administration. ??FDA does not require this test to go throu gh premarket FDA review. This test is used for clinical purposes and should not be regarded as investigatio nal or for research. ??This laboratory is certified under the Clinical Laboratory Improvement Amendments (CLIA) as qualified to perform high complexity clinical laboratory testing. CPT Codes: A: 32977-SB, 20460-NGYARHI, 55743-24-WZSZ18(15), 57947-ZQAJ> 15 TESTING LAB LOCATION: [address] [phone] COLLECTION SITE: Client: ??[facility] Location: ??[place] (B) Specimen Anatomical Collection Method Collection Time Receive d Time (Source) Location / / Volume Laterality Bone marrow BONE MARROW 01/22/2019 11:09 01/22/2019 specimen STRUCTURE / AM CDT 12:19 PM CDT (specimen) Unknown Candida Ramirez MD LAB - [facility] SPECIAL DIAG OR DERABLES Performing Organization Address City/State/ZIP Code Kunal SHULTZ Bone marrow biopsy (01/22/2019 11:01 AM CDT) Component Value Ref Test Analysis Performed Pathologis t Range Method Time At [facility] Patient Name: JENNIFER MENDEZ Report MR#: [id number] Specimen #: [id number] Collected: 01/22/2019 Received: 01/22/2019 Reported: 01/26/2019 10:51 Ordering Phy(s): PAULINE CAMPBELL Additional Phy(s): Copy to [employer]ogen[employer] For improved result formatting, select 'View Enhanced Report Format' under Linked Documents section. TEST(S): Unilateral Bone Marrow Biopsy/Aspiration FINAL DIAGNOSIS: Bone marrow, posterior iliac crest, left decalcified trephin e biopsy and touch imprint; left direct aspirate smear, and concentrated aspirate smear; and peripheral blood smear: ??- Persistent myeloid neoplasm characterized by: ??- Hypercellular marrow (>95%) with panmyelosis, atypica l megakaryocytes, dysplastic erythroid precursors including ring sideroblasts, and 1% blasts ??- Increased marrow fibrosis (MF2 to 3 of 3) with osteoscl erosis ??- Peripheral blood showing moderate normocytic anemia; ly mphocytopenia; numerous tear-drop cells, circulating nRBCs, and immature granulocytes COMMENT: The morphologic picture suggests a myelodysplastic/myeloprol iferative neoplasm. Flow cytometry ([id number]) identified no increase in myeloid blasts and no abnormal myeloid blast population I have personally reviewed all specimens and/or slides, incl uding the listed special stains, and used them with my medical judgment to determine the final diagnosis. Electronically signed out by: Margy Serrano M.D., [facility] Technical testing/processing performed at [place], [place] CLINICAL HISTORY: 48-year-old female was diagnosed with myeloid neoplasm with myelofibrosis in 2016 (slides not reviewed here, RM16-24). She has massive splenomegaly and is transfusion de pendent. ??She was treated with Jakafi, 2 clinical trial drugs (at [facility]), and hydroxyurea with no response. REPORT: Procedure/Gross Description Aspirate(s) and trephine(s) procured by [facility] Specimen sent for Special Studies: ? Flow Cytometry (left aspirate) ? Cytogenetics (left aspirate) ? Molecular Diagnostics (left aspirate) Biopsy aspiration site: Left posterior iliac crest ? (Reference Range) ? Amount of aspirate ?3 ?mL ? Fat and P.V. cell layer ? 0 ?% ? (1 - 3) ? Particles ?0 ?% ? Myeloid-erythroid layer ?trace ?% ? (5 - 8) ? Clot Section: no Trephine biopsy site: unilateral Designated left (B) posterior iliac crest is 1 cylinder of g ritty tissue, labeled with the patient's name and hospital number, obtained with 11 gauge needle, and having a length of 14 mm; entirely submitted in 1 cassette; acetic zinc formalin fixed, decalcified, processed , and stained with hematoxylin and eosin per laboratory protocol. PERIPHERAL BLOOD DATA: CLINICAL LAB RESULTS: Battery Order No. Lab Test Code Clinical Result Ref. Range U nits Result Date Hemogram/Diff/PLT [id number] WBC Count 4.4 4.0-11.0 10e9/L 06/2019 10:19 ?? RBC Count L 3.09 3.8-5.2 10e12/L 01/22/2019 10:19 ?? Hemoglobin L 8.1 11.7-15.7 g/dL 01/22/2019 10:19 ?? Hematocrit L 27.7 35.0-47.0 % 01/22/2019 10:19 ?? MCV 90 78-100 fl 01/22/2019 10:19 ?? MCH L 26.2 26.5-33.0 pg 01/22/2019 10:19 ?? MCHC L 29.2 31.5-36.5 g/dL 01/22/2019 10:19 ?? RDW H 25.0 10.0-15.0 % 01/22/2019 10:19 ?? Platelet Count 172 150-450 10e9/L 01/22/2019 10:19 ?SEE TEXT ?? 01/22/2019 10:56 ? Text/Comments: Manual Differential ?? % Neutrophils 79.8 ??% 01/22/2019 10:56 ?? % Lymphocytes 7.3 ??% 01/22/2019 10:56 ?? % Monocytes 8.3 ??% 01/22/2019 10:56 ?? % Eosinophils 0.0 ??% 01/22/2019 10:56 ?? % Basophils 0.0 ??% 01/22/2019 10:56 ?? % Metamyelocytes 1.8 ??% 01/22/2019 10:56 ?? % Myelocytes 2.8 ??% 01/22/2019 10:56 ?? Nucleated RBCs H 5 0 /100 01/22/2019 10:56 ?? abs Neutrophils 3.5 1.6-8.3 10e9/L 01/22/2019 10:56 ?? abs Lymphocytes L 0.3 0.8-5.3 10e9/L 01/22/2019 10:56 ?? abs Monocytes 0.4 0.0-1.3 10e9/L 01/22/2019 10:56 ?? abs Eosinophils 0.0 0.0-0.7 10e9/L 01/22/2019 10:56 ?? abs Basophils 0.0 0.0-0.2 10e9/L 01/22/2019 10:56 ?? abs Metamyelocytes H 0.1 0 10e9/L 01/22/2019 10:56 ?? abs Myelocytes H 0.1 0 10e9/L 01/22/2019 10:56 ?? abs NRBC 0.2 ?? 01/22/2019 10:56 ?? Platelet Estimate SEE TEXT ?? 01/22/2019 10:56 ? Text/Comments: Confirming automated cell count MICROSCOPIC DESCRIPTION: The red blood cells appear normochromic with occasional hypo chromic red blood cells. ??Poikilocytosis includes numerous dacryocytes and occasional elliptocytes. ??Polychro masia is increased. ??Rouleaux formation is not increased. ??There are large hypogranular platelets present. Neutrophil precursors present. Bone marrow aspirates and touch imprints of bone biopsy are reviewed. BONE MARROW DIFFERENTIAL (500 cells on touch imprints): Percent ??Cell (reference range) Blasts (0 - 1) 0 Neutrophil promyelocytes (2 - 4) 32 Neutrophils and precursors (54 - 63) 61 Erythroid precursors (18 - 24) 0 Monocytes (1 - 1.5) 3 Eosinophils (1 - 3) 0.0 Basophils (0 - 1) 3 Lymphocytes (8 - 12) 0 Plasma cells ??(0 - 1.5) The aspirate smears are possibly hemodiluted; count performe d on touch imprint. Neutrophil maturation is complete. Erythroid maturation is c omplete. Erythroid precursors include frequent forms with irregular nuclear contours or binucleation. ??M egakaryocytes are present and include atypical hypersegmented forms. IRON STAINS: Dacie iron stain on concentrate smears: numerou s ring sideroblasts (48% of erythroid precursors). TREPHINE SECTIONS: The marrow cellularity is >95%. The cellular composition ref lects the aspirate differential. Megakaryocytes are atypical and clustered. Megakaryocytes include irregular lobation and hyperchromatic nuclei. Dilated sinuses. Osteosclerosis. Increased reticulin fibrosis (MF2 with focal MF3 of 3) by re ticulin stain. Focal collagen fibers by trichrome stain. Immunohistochemistry: Immunohistochemical stains are performed on the paraffin-emb edded left trephine biopsy. CD61 highlights megakaryocytes. CD34 highlights blasts, main ly scattered and comprising <5% of the marrow cellularity. Note: ??These immunohistochemical stains are deemed medica lly necessary. ?? Some of the antigens may also be evaluated by flow cytometry. ??Concurrent evaluation by immunohistochemistry on clot and/or trephine sections is indicated in this case in order to correlate immunophenot ype with cell morphology and determine extent of involvement, spatial pattern, and focality of potential dise ase distribution. CPT Codes: A: 77357-JQMA.T, 75285-IJCKS, 89452-EYFV, HBM, 95664-TXIU, 8 5060-MORPH, 19756-VLNFA, 87279-GYRW.T, 20962-VCVLB, 77235-EAE, 14384-JJJF, 17089-ONAE, 98979-UTW TESTING LAB LOCATION: [facility], [facility] [address] [place] [address] ?? [phone] COLLECTION SITE: Client: ??[facility] Location: ??[place] (B) Specimen Anatomical Collection Method Collection Time Receive d Time (Source) Location / / Volume Laterality Bone marrow 01/22/2019 11:01 01/22/2019 specimen AM CDT 12:20 PM CDT (specimen) Pauline PEARSON - PK ZIMMERMAN Performing Organization Address City/State/ZIP Code Phon e Number COPATH (ABNORMAL) CBC with platelets differential (01/22/2019 10:00 AM CDT) Component Value Ref Test Analysis Performed At [facility] gist Range Method Time Signature WBC 4.4 4.0 - 01/22/2019 [place] 11.0 10:19 AM [place] 10e9/L [facility] RBC Count 3.09 (L) 3.8 - 01/22/2019 [place] 5.2 10:19 AM [place] 10e12/L [facility] Hemoglobin 8.1 (L) 11.7 - 01/22/2019 [place] 15.7 10:19 AM [facility] g/dL [facility] Hematocrit 27.7 (L) 35.0 - 01/22/2019 [place] 47.0 % 10:19 AM OF [facility] MCV 90 78 - 100 01/22/2019 [place] fl 10:19 AM OF [facility] MCH 26.2 (L) 26.5 - 01/22/2019 [place] 33.0 pg 10:19 AM OF [facility] MCHC 29.2 (L) 31.5 - 01/22/2019 [place] 36.5 10:19 AM [facility] g/dL [facility] RDW 25.0 (H) 10.0 - 01/22/2019 [place] 15.0 % 10:19 AM OF [facility] Platelet Count 172 150 - 01/22/2019 [place] 450 10:19 AM [place] 10e9/[facility] Diff Method Manual 01/22/2019 [place] Differential 10:56 AM OF [facility] % Neutrophils 79.8 % 01/22/2019 [place] 10:56 AM OF [facility] % Lymphocytes 7.3 % 01/22/2019 [place] 10:56 AM OF [facility] % Monocytes 8.3 % 01/22/2019 [place] 10:56 AM OF [facility] % Eosinophils 0.0 % 01/22/2019 [place] 10:56 AM OF [facility] % Basophils 0.0 % 01/22/2019 [place] 10:56 AM OF [facility] % Metamyelocytes 1.8 % 01/22/2019 [place] 10:56 AM OF [facility] % Myelocytes 2.8 % 01/22/2019 [place] 10:56 AM OF [facility] Nucleated RBCs 5 (H) 0 /100 01/22/2019 [place] 10:56 AM OF [facility] Absolute 3.5 1.6 - 01/22/2019 [place] Neutrophil 8.3 10:56 AM [place] 10[facility]9/[facility] Absolute 0.3 (L) 0.8 - 01/22/2019 [place] Lymphocytes 5.3 10:56 AM [place] 10e9/L [facility] Absolute 0.4 0.0 - 01/22/2019 [place] Monocytes 1.3 10:56 AM [place] 10e9/[facility] Absolute 0.0 0.0 - 01/22/2019 [place] Eosinophils 0.7 10:56 AM [place] 10e9/[facility] Absolute 0.0 0.0 - 01/22/2019 [place] Basophils 0.2 10:56 AM [facility] [place] 10e9/[facility] Absolute 0.1 (H) 0 10e9/L 01/22/2019 [place] Metamyelocytes 10:56 AM OF [facility] Absolute 0.1 (H) 0 10e9/L 01/22/2019 [place] Myelocytes 10:56 AM OF [facility] Absolute 0.2 01/22/2019 [place] Nucleated RBC 10:56 AM OF [facility] Anisocytosis Marked 01/22/2019 [place] 10:56 AM OF [facility] Poikilocytosis Marked 01/22/2019 [place] 10:56 AM OF [facility] Polychromasia Slight 01/22/2019 [place] 10:56 AM OF [facility] RBC Fragments Slight 01/22/2019 [place] 10:56 AM OF [facility] Teardrop Cells Marked 01/22/2019 [place] 10:56 AM OF [facility] Ovalocytes Marked 01/22/2019 [place] 10:56 AM OF [facility] Platelet Estimate Confirming 01/22/2019 [place] automated cell 10:56 AM [place] count [facility] Specimen Anatomical Collection Method Collection Time Receive d Time (Source) Location / / Volume Laterality Blood specimen 01/22/2019 10:00 9 (specimen) AM CDT 10:02 AM CDT Pauline Campbell PA-C LAB - BLOOD ORDERABLES Performing Organization Address City/State/[place] [address] [facility] documented in this encounter Visit Diagnoses Diagnosis 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 Monitor respiratory status and vital signs carefully for 1 hour after each dose. documented in this encounter Care Teams Trim Die Maker Relationship Specialty Start Date End Date No Ref-Primary, PCP - General 09/30/17 Physician Candida Ramirez MD MD Internal Medicine 01/15/19 [address] [facility] [address] [place] [address] HazShala delgadillo RN Specialty Care Hematology & Oncology 01/15/19 07/23/21 Coordinator documented as of this encounter
--- OUTSIDE RECORDS SUMMARY | 2022-05-02 12:19 | XMS_ITS | Encounter Summary ---
:1970 Author Organization [facility] Address [address] [place] [address] Care Team Providers Name Role Phone No Ref-Primary, Physician Primary Care Provider Encounter Details Date Type Department Care Team Description 12/19/2018 Travel Social History Tobacco Use Types Packs/Day [...] on filedocumented in this encounter Care Teams On Site Soil Evaluator Relationship Specialty Start Date End Date No Ref-Primary, Physician PCP - General 09/30/17 documented as of this encounter
--- OUTSIDE RECORDS SUMMARY | 2022-05-02 12:19 | XMS_ITS | Encounter Summary ---
:1970 Author Organization [facility] Address [address] [place] [address]. [place] [address] Care Team Providers Name Role Phone No Ref-Primary, Physician Primary Care Provider [phone] Candida Epps MD Unavailable Shala Bell RN Unavailable Unavailable Encounter Details Date Type Department Care Team Description 01/15/2019 Medical Correspondence [facility] Scan, BLOOD/PLATELET/PLAS Health Info Mgmt Non-Provider [place] ORDER FA [facility] [address] [place] [phone] Social History Tobacco Use Types Packs/Day [...] on filedocumented in this encounter Care Teams Layout Mechanic Relationship Specialty Start Date End Date No Ref-Primary, PCP - General 09/30/17 Physician Candida Epps MD MD Internal Medicine 01/15/19 [address] [facility] [address] [place] [address] Shala Bell, RN Specialty Care Hematology & Oncology 01/15/19 07/23/21 Coordinator documented as of this encounter
--- OUTSIDE RECORDS SUMMARY | 2022-05-02 12:19 | XMS_ITS | Encounter Summary ---
:1970 Author Organization [facility] Address [address] [place] [address] Care Team Providers Name Role Phone No Ref-Primary, Physician Primary Care Provider Encounter Details Date Type Department Care Team Description 01/13/2019 Travel Social History Tobacco Use Types Packs/Day [...] on filedocumented in this encounter Care Teams Certified Flight Instructor Relationship Specialty Start Date End Date No Ref-Primary, Physician PCP - General 09/30/17 documented as of this encounter
--- OUTSIDE RECORDS SUMMARY | 2022-05-02 12:19 | XMS_ITS | Encounter Summary ---
:1970 Author Organization [facility] Address [address] [place] [address] Care Team Providers Name Role Phone No Ref-Primary, Physician Primary Care Provider [phone] Candida Epps MD Unavailable Shala Bell RN Unavailable Unavailable Ronaldo jones MD Unavailable Candida Epps MD Unavailable Boaz Garcia MD Unavailable Rodrick Turner MD Unavailable Reason for Visit Reason Onset Date Comments Appointment 12/16/2018 Encounter Details Date Type Department Care Team Description 12/16/2018 Telephone [facility] Edin Arellano MD Appointment [facility] [address] [place] [address] [address] [place], [place] [phone] [place] [address] (Wo rk) Social History Tobacco [...] this encounter Miscellaneous Notes Telephone Encounter - Amee Davidson - 12/16/2018 8:28 AM CDT lvm documented in 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 Care Teams Data Entry Representative Relationship Specialty Start Date End Date No Ref-Primary, PCP - General 09/30/17 Physician Candida Epps MD MD Internal Medicine 01/15/[address] [place] [address] [address] [place] [address] Shala Bell, HELENE Specialty Care Hematology & Oncology 01/15/19 07/23/21 Coordinator Ronaldo Cheatham, Assigned Heart and 05/05/20 MD Vascular Provider [address] [facility] [address] [place] [address] Candida Epps MD Assigned Cancer Care 05/05/20 07/22/20 [facility] Provider [facility] [address] [place], [place] [id number] Boaz Garcia Assigned Surgical 05/05/20 01/25/21 MD Constant[place] Provider [address] [facility] [address] [place] [address] Rodrick Turner MD Assigned Sleep Provider 05/05/20 01/06/[address] [place] [address] [place] [address] documented as of this encounter
--- OUTSIDE RECORDS SUMMARY | 2022-05-02 12:19 | XMS_ITS | Encounter Summary ---
:1970 Author Organization [facility] Address [address] [place] [address] Care Team Providers Name Role Phone No Ref-Primary, Physician Primary Care Provider [phone] Reason for Referral Consultation (Routine) - Closed Specialty Diagnoses / Procedures Referred By Contact Refer red To Contact Diagnoses Myeloproliferative disorder (H) Candida Ramirez MD [address] [place] [address] [phone] Referral ID Status Reason Start Date Expiration Date Visits Requ ested Visits Authorized [id number] Closed 01/19/2019 01/19/2020 1 1 Scheduling Instructions Myelofibrosis with massive splenomegaly, consult for splenectomy. Request Fei Rowan or Javi Toure. Reason for Visit Reason Comments Consult New- Myeloproliferative diso rder Encounter Details Date Type Department Care Team Description 01/13/2019 Office Visit [facility] Candida Ramirez MD Myeloproliferative Blood and Marrow ALLINA JESSICA disorder (H) (Primary Dx) Transplant Program [facility] [address] [id number] [phone] Social History Tobacco Use Types Packs/Day Years [...] Sign Reading Time Taken Comments Blood Pressure 133/71 01/13/2019 4:01 PM CDT Pulse 86 01/13/2019 4:01 PM CDT Temperature 37 ??C (98.6 ??F) 01/13/2019 4:01 PM CDT Respiratory Rate - - Oxygen Saturation 97% 01/13/2019 4:01 PM CDT Inhaled Oxygen Concentration - - Weight 96.1 kg (211 lb 12.8 oz) 01/13/2019 4:01 PM CDT Height - - Body Mass Index 32.2 11/09/2018 4:35 PM CDT documented in this encounter Progress Notes Candida Ramirez MD - 01/13/2019 3:45 PM CDT [facility] Consultation Jennifer Mendez is a 48 year old female referred by Dr. Nolen for myelofibrosis. Hematologic history: Pulmonary and is a 48-year-old female who was diagnosed with myelofibrosis in 2016. She reports being told that she had high platelets in her 20s, but this was never followed up onand she did not have regular regular medical care until 2015. She presented with nausea, fatigue, left-sided abdominal pain in 2016. Bone marrow biopsy in September 2015 was hypercellular 95%, grade 3 fibrosis and associated osteosclerosis, no increase in abnormal myeloid blasts. There was slight dyserythropoiesis and atypical, increased megakaryocytes.There were 35% ringed sideroblasts. 15% del13q by FISH. 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 At time of diagnosis, she had mild anemia of 10.6, platelets and white blood cells nay with left shift. Her spleen was 20 cm in size on CT scan at diagnosis. She was treated with Jakafi at 20 mg twice daily and developed fatigue, transfusion dependent anemia, and nausea, so only stayed on this for 2 to 3 months before discontinuation. She does not recall that her spleen drink on Jakafi. She had a consultation with Dr. Orta at [facility], and was treated on 2 clinical trial protocols in [id number]. She experienced significant side effects including fatigue, abdominal discomfort, nausea on the trial drugs. She was last seen at [facility] in July 2016 and then reestablish care with Dr. nolen [place] [facility] in September 2016. Since then, she has been on hydroxyurea for 7 to 8 months, last treatment 6 weeks ago. She reports significant fatigue and hydroxyurea. She has required regular transfusions of red blood cells every 2 to 3 weeks. 2 months ago, she reports worsening spleen pain and left lower quadrant and groin. She presented to the emergency department and had scan showing spleen size 30 cm with multiple splenic infarcts. She has had persistent almost nightly night sweats and has lost 70 pounds in the past 4 years. She denies any infections or fevers. She denies any infections orfevers. She denies any deep venous thromboses. She currently endorses abdominal pain in the left upper and lower quadrants, fatigue, nausea, poor appetite. Her last blood transfusion was about 3 weeks ago. She feels temporarily better after transfusions, but this only lasts for a few days. On review of her labs, her hemoglobin has remained low between 5.5 and 7 in the past few months. She reports that she has not had a bone marrow transplant consultation. PMH: No other medical history. Surgical history: Tonsillectomy Social Hx: History of tobacco abuse, 27 pack years, last smoked in 2012. She denies significant alcohol use. Previously worked in [employer] at [employer], not working since diagnosis. No children. Has a cat. 10 brother and sisters. She is the youngest. Family Hx: Mother - of CVA, had colon and skin cancer Brother- melanoma Date Treatment Response Toxicities/Complications 2016 (2-3 months) Jakafi 20 mg twice daily no fatigue, transfusion dependent anemia, nausea 2016 clinical trial drug at [facility] no 2017 clinical trial drug at [facility] no 2018-20 19 (7-8 months) Hydrea 500 mg daily no HPI: Please see my entry above for hematologic history. 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 She has transfusion dependent anemia, constitutional symptoms night sweats and weight loss, massive splenomegaly. She is previously been treated with Jakafi, 2 clinical trial drugs, and hydroxyurea. Her last bone marrow biopsy in 2016 at diagnosis showed grade 3 fibrosis, ring sideroblasts, standard risk cytogenetics,CALR mutation. She has been transfusion dependent requiring transfusions every 2 to 3 weeks with poor response to transfusion due to her large splenomegaly. Her white blood cell count and platelets remain in normal range. At this time, it is reasonable that she obtain a general surgery consultation to consider splenectomy for her massive splenomegaly that is symptomatic and causing red blood cell sequestration. She did not tolerate Jakafi after initial trial of this. She was on 2 clinical trial drugs, likely second generation Jefry inhibitors, also did not tolerate. She has had a trial of Hydrea and has had increase in splenomegaly and continued transfusion dependence. We discussed other options including interferon, which are almost certain to cause flulike symptoms of side effects and are not very effective at decreasing splenomegaly. At this time, she has very few medical options that have a reasonable chance of improving her splenomegaly. Although splenectomy has been associated with thrombotic and hemorrhagic complications (50%), thus reserved when no other good options. Low dose splenic irradiation also option, but limited duration of spleen shrinkage (a few months) and has not been associated with improved o utcomes after transplant. In addition, I would like to repeat her bone marrow biopsy to assess for additional dysplastic changes, cytogenetic evolution, and high risk mutations (IDH1, SRSF2, ASXL1) that is been associated with poor prognosis in myelo fibrosis. With intermediate risk-2 diease it is reasonable at this time to con warehouse foreman bone marrow transplantations, with allogeneic donor. If she does have high risk features on a bone marrow biopsy, I would feel more strongly about proceeding rapidly to bone marrow transplantation. She does have 10 brothers and sisters so there is high likelihood of a matched sibling donor. Willdiscuss with surgery and radiation oncology colleagues about splenectomy vs splenic irradiation prior to transplant. She would also like to go back to [facility] to get another opinion, which I encouraged. - bone marrow biopsy next week - Patient plans to get second opinion from [facility] - Bone marrow transplantation consultation with me on 02/05 - surgery consult for possible splenectomy - Patient will continue regular transfusions through [place] [facility] Candida Ramirez MD Superintendent Sanitationswitchboard receptionist Hematology, Oncology and Transplantation Pager: [phone] ROS: 10 point ROS neg other than the symptoms noted above in the HPI. Past Medical History: Diagnosis Date ??? Myelofibrosis (H) 10/2015 Past Surgical History: Procedure Laterality Date ??? BONE MARROW BIOPSY, BONE SPECIMEN, NEEDLE/TROCAR Left 09/14/2015 Procedure: BIOPSY BONE MARROW; Surgeon: Paolo Purcell MD; Location: [facility] OR ??? ENT SURGERY Tonsillectomy ??? ENT SURGERY Myringotomies x 1 ??? SOFT TISSUE SURGERY Stitches in finger No family history on file. Social History Tobacco Use ??? Smoking status: Former Smoker Last attempt to quit: 09/27/2012 Years since quittin.3 ??? Smokeless tobacco: Never Used ??? Tobacco comment: quit September 27, 2012 Substance Use Topics ??? Alcohol use: Yes Comment: 1 drink per week ??? Drug use: Yes Types: Marijuana Comment: occas. No Known Allergies Current Outpatient Medications Medication Sig Dispense Refill ??? ibuprofen (ADVIL/MOTRIN) 200 MG tablet Take 200 mg by mouth every 6 hours as needed for mild pain (headaches) ??? LORAZEPAM PO Take 0.5 mg by mouth every 6 hours as needed for anxiety ??? MORPHINE SULFATE PO Take 30 mg by mouth 2 times daily (Takes 15 mg BID if not working) ??? oxyCODONE (ROXICODONE) 5 MG immediate release tablet Take 1-2 tablets (5-10 mg) by mouth every 6hours as needed for moderate to severe pain 30 tablet 0 ??? senna-docusate (SENOKOT-S;PERICOLACE) 8.6-50 MG per tablet Take 1 tablet by mouth 2 times daily 60 tablet 1 ??? Sodium Bicarbonate-Citric Acid (VASYL-SELTZER HEARTBURN PO) Take 1 tablet by mouth Aspirin Physical Exam: Vital Signs: BP 133/71 Pulse 86 Temp 98.6 ??F (37 ??C) (Oral) Wt 96.1 kg (211 lb 12.8 oz) SpO2 97% BMI 32.20 kg/m?? KPS: 80 General Appearance: alert and no distress Eyes: PERRL, conjunctiva and lids normal, sclera nonicteric Ears/Nose/M/Throat: Oral mucosa and posterior oropharynx normal, moist mucous membranes Neck supple, non-tender, free range of motion, no adenopathy Cardio/Vascular:regular rate and rhythm, normal S1 and S2, no murmur Resp Effort And Auscultation: Normal - Clear to auscultation without rales, rhonchi, or wheezing. GI: soft, nontender, bowel sounds present in all four quadrants, spleen palpable to right of midline Lymphatics:no significant enlargement of lymph nodes globally Musculoskeletal: Musculoskeletal normal Edema: none Skin: Skin color, texture, turgor normal. No rashes or lesions. Neurologic: Gait normal. Sensation grossly WNL. Psych/Affect: Mood and affect are appropriate. Jennifer understood the above assessment and recommendations. Multiple questions answered. No barriers to learning identified. Total time: 60 minutes Counseling time: 50 minutes Prolonged service: No Candida Ramirez MD Patient Care Team Relationship Specialty Notifications Start End No Ref-Primary, Physician PCP - General 09/30/17 documented in this encounter Nursing Notes Otilia Camacho CMA - 01/13/2019 3:45 PM CDT Oncology Rooming Note January 13, 2019 4:02 PM Jennifer Mednez is a 48 year old female who presents for: Chief Complaint Patient presents with ??? Consult New- Myeloproliferative disorder Initial Vitals: BP 133/71 Pulse 86 Temp 98.6 ??F (37 ??C) (Oral) Wt 96.1 kg (211 lb 12.8 oz) SpO2 97% BMI 32.20 kg/m?? Estimated body mass index is 32.2 kg/m?? as calculated from the following: Height as of 11/09/18: 1.727 m (5' 8). Weight as of this encounter: 96.1 kg (211 lb 12.8 oz). Body surface area is 2.15 meters squared. Data Unavailable Comment: Data Unavailable No LMP recorded. Patient is postmenopausal. Allergies reviewed: Yes Medications reviewed: Yes Medications: Medication refills not needed today. Pharmacy name entered into [employer]: Data Unavailable Clinical concerns: None Otilia Camacho CMA documented in this encounter Plan of Treatment Scheduled Referrals Name Type Priority Associated Diagnoses Order S [facility] Surgery Referral Routine Myeloproliferative disord er Expected: Adult Referral (H) 01/26/2019 (Approximate), Expires: 2019 documented as of this encounter Results Next Generation Sequencing Oncology: Individual Genes; IDH1 (SRSF2, ASXL1 ) (01/22/2019 11:09 AM CDT) Component Value Ref Test Analysis Performed Pathologis t Range Method Time At [facility] Patient Name: JENNIFER MENDEZ Report MR#: [id number] Specimen #: [id number] Collected: 01/22/2019 11:09 Received: 01/22/2019 13:20 Reported: 02/04/2019 18:13 Ordering Phy(s): CANDIDA RAMIREZ Additional Phy(s): Copy to [facility] PAULINE HARTLEY Copy To: TAMANNA For improved result formatting, select 'View Enhanced Report Format' under Linked Documents section. TEST(S) REQUESTED: Next Generation Sequencing [id number] SPECIMEN DESCRIPTION: Bone Marrow (Left) SIGNIFICANT RESULTS [...] p.K700E A variant of uncertain significance, ABL1 p.N251bgh, was als o detected. Note, that we are unable to determine if the two SF3B1 varia nt are in cis or trans. No other pathogenic variants were identified in the genes li sted above. Concurrent morphologic studies show evidence of persistent m yeloid neoplasm with panmyelosis, atypical megakaryocytes, dysplastic erythroid precursors with ringed sideroblasts and increase marrow fibrosis ([id number]). SF3B1 is the most commonly mutated gene found in MDS (20-33% of MDS overall). ??SF3B1 mutations tend to occur in exons 13-16 and appear to be enriched at codons Bxe965, L ys666, Hrr505, Yxn808 and Okp082. ??SF3B1 mutations are highly associated with subtypes of MDS characterized by ring sideroblasts (MDS with ring sideroblasts and MDS with multilineage dysplasia and ring sideroblasts) and p resent in ~80% of these patients. ??In addition, many cases (60-80%) of myelodysplastic/myeloproliferative ne oplasm with ring sideroblast and thrombocytosis (MDS/MPN-RS-T) harbor SF3B1 mutations (Gunnar et al, 2019; PMI D: [id number]). SF3B1 commonly coexists with a JAK2 V617F (50% to 65%), or less commonly a CALR or MPL mutation (<10%) (Ismael EF and Mich R, 2017; PMID: 26333665). Patients with CALR-mutated myelofibrosis may derive benefit from therapy with the JEFRY inhibitor, ruxolitinib (Freddy Ríos et al, 2016, PMID: 53954246, Miranda rosario, 2017, PMID: 84316861), although in this patient this drug was without effect per [facility] records. GENETIC ALTERATIONS --------- Detected Alterations of Known or Potential Pathogenicity --------- Gene: CALR Alteration: K385fs c.1154_1155insTTGTC Type of Alteration: Insertion - Frameshift Significance: Pathogenic Therapeutic Implications*: None Additional Information: COSMIC: [id number] Allele Frequency: 0.0% dbSNP: [id number] References: Erna H, Dean T, Kayla K, Mary G, Jermaine A, Bowen Dillon, Katia Mills, Wes Joel, Mana J, Yoni M, Zuri A, Juanito P, Mercy A, Analia T. Distinct clinical characte ristics of myeloproliferative neoplasms with calreticulin mutations. Haematologica. 2014 Jan;99(7):1184-9 0. doi: 10.3324/haematol.2014.741986. Epub 2013Dec 14. PubMed PMID: 94883355; PubMed Central PMCID: WHJ54210 79. Gene: SF3B1 Alteration: K700E c.2098A>G Type of Alteration: Substitution - Missense Significance: Likely Pathogenic Therapeutic Implications*: None Additional Information: COSMIC: [id number], [id number] Allele Frequency: 0.0% dbSNP: [id number] Comment: SF3B1 (p.Ani503Tze) is a missense variant that has been [...] variant in respect to MDS phenotypes (PMID: 86468776). Based on avai lable information this variant is classified as likely pathogenic. Gene: SF3B1 Alteration: K666R c.1996A>G Type of Alteration: Substitution - Missense Significance: Likely Pathogenic Therapeutic Implications*: None Additional Information: COSMIC: [id number], [id number] Allele Frequency: 0.0% dbSNP: [id number] References: Herbert S, Roman A, Tino A, Inga T, Gavin M, Jose Luis E, Luther F, Enrique A, Ozzie S, Temo S, Padilla M, Brittnee TARANGO. Cancer-associated SF3B1 mutations affect alternative splicing by promoting alternative branchpoint usage. Fátima Commun. 2016 Fe b 4;7:40243. doi: 10.1038/zyscpv61413. PubMed PMID: 88322717; PubMed Central PMCID: MMI6121160. Comment:SF3B1 c.1997A>G (p.Rxu499Poo) is a missense variant that has been [...] --------- --------- CALR K385fs --------- Nucleotide Change: ??c.1154_1155insTTGTC Type of Alteration: ??Insertion - Frameshift About this gene: ??Calreticulin (CALR) is a calcium-binding protein that functions in calcium storage and dewaxer regulation. Missense mutations, silent mutatio ns, nonsense [...] occurring somatic mutation in the CALR gene ([facility]) following CALR L367fs*46. This mutation causes a 5-bp insertion and a frameshift (TTGTC) in exon 9, leading to a loss of about half of the negatively charged amino acids from the C-terminus of the CALR protein (PMID: 2 2476286), leading to an altered subcellular localization signal. References: ??https://www.iKnowl.org/content/gene/ca lr/ --------- SF3B1 K666R --------- Nucleotide Change: ??c.1997A>G Type of Alteration: ??Substitution - Missense About this gene: ??Splicing factor 3b, subunit 1, 155kDa (SF 3B1) is a gene that codes for part of the splicing factor 3b protein complex, splicing factor 3B subunit 1 (Gen e 2014). The complex is a member of the spliceosome and is involved in dewaxer and mRNA proces sing (Gene 2014). Spliceosome mutations are observed in MDS, chronic lymphocytic leukemia (CLL), AML, an d chronic myelomonocytic leukemia (CMML), and these mutations can cause abnormal expression patterns of so me genes involved in cancer pathogenesis (PMID: 87131660). Pathways: ??RNA splicing References: ??https://www.iKnowl.org/content/gene/sf 3b1/ --------- SF3B1 K700E --------- Nucleotide Change: ??c.2098A>G Type of Alteration: ??Substitution - Missense About this gene: ??Splicing factor 3b, subunit 1, 155kDa (SF 3B1) is a gene that codes for part of the splicing factor 3b protein complex, splicing factor 3B subunit 1 (Gen e 2014). The complex is a member of the spliceosome and is involved in dewaxer and mRNA proces sing (Gene 2014). Spliceosome mutations are observed in MDS, chronic lymphocytic leukemia (CLL), AML, an d chronic myelomonocytic leukemia (CMML), and these mutations can cause abnormal expression patterns of so me genes involved in cancer pathogenesis (PMID: 77410599). Pathways: ??RNA splicing References: ??https://www.mycancergenome.org/content/gene/sf 3b1/ TEST DETAILS --------- Coverage --------- Unless [...] preparatio n is mediated by tagmentation following GENIAC protocols, and target enrichment is performed by hybrid capt ure using [employer] customized baits and Illumina Rapid capture reagents per tongue and groove machine feeder's protocol. The enriched l ibraries are sequenced on an Illumina MiSeq (using version 3 chemistry). FASTQ files are processed through a cu stomized bioinformatic pipeline including CutAdapt, PandaSeq, BWA, and Freebayes. Variant call files ( VCF) are uploaded to [employer]tv software for variant filtering, annotation, and reporting. [...] and its performance characteristics determined by the [facility]. It has not been cl eared or approved by the FDA. The laboratory is regulated under CLIA as qualified to perform high-complexity testing. This test is used for clinical purposes. It should not be regarded as investigational or for research . This test was developed and its performance characteristics determined by the [facility] and the [facility] (Cancer & Cardiovascular Research Building Room 4-746, [address] [place] [address]). Genomic DNA extraction, library preparation, sequencing, and interpretation of seque ncing data is performed at [facility]. This test has not [...] (iii) rendered or confirmed the interpretation(s). --------- xiao qu wu youcology Disclaimer --------- This report was produced using software licensed by [employer]. [employer] software is designed to be used in clinical applications solely as a tool to enhance ct dical utility and improve operational efficiency. The use of [employer] software is not a substitute for ct dical judgment and [employer] in no way holds itself out as having or providing independent medical judgme nt or diagnostic services. [employer] is not liable with respect to any treatment or diagnosis made in co nnection with this report. [employer] Rules Version: rules-0009O [employer] Application Version: [id number]- --------- Electronic Signature --------- Electronically signed/cosigned by: Alejanrdo Andrews MD, PhD 02/04/2019 Electronically Signed Out By: Alejandro Andrews M.D., [facility] CPT Codes: A: T2580-[id number], [id number], [id number] TESTING LAB LOCATION: [address] [address] COLLECTION SITE: Client: ??[facility] Location: ??[place] (B) Specimen Anatomical Collection Method Collection Time Receive d Time (Source) Location / / Volume Laterality Bone marrow BONE MARROW 01/22/2019 11:09 01/22/2019 1:20 specimen STRUCTURE / AM CDT PM CDT (specimen) Unknown Candida Ramirez MD LAB - GENOMICS Performing Organization Address City/State/ZIP Code Phon e Number [facility]IB[facility] SNP ARRAY for Oncology (01/22/2019 11:09 AM CDT) Component Value Ref Test Analysis Performed At [facility] Method Time Signature Copath Report Patient Name: JENNIFER MENDEZ MR#: [id number] Specimen #: [id number] Collected: 01/22/2019 11:09 Received: 01/22/2019 15:16 Reported: 01/28/2019 11:38 Ordering Phy(s): CANDIDA ARMIREZ Additional Phy(s): RAFI HARTLEY Copy to [facility] For improved result formatting, select 'View Enhanced Report Format' under Linked Documents section. TEST(S) REQUESTED: [facility] for oncology with SNP SPECIMEN DESCRIPTION: Bone Marrow Aspirate CLINICAL COMMENTS: MF - eval for MDS cytogenetic abnormalities A bone marrow specimen was received in the [facility]ogenetics [facility] on 01/22/2019 with orders for Bone marrow Chromosome Analysis, FISH and [facility] with SNP for oncology. ??D ue to the hypocellular nature of ??this specimen, microarray testing could not be performed. Billing Comment: Credit Microarray in full 01/26/2019. Electronically Signed Out By: BRUNO Technical SupervisorCPT Codes: A: [id number]-[id number], [id number], [id number]-[id number] <CR>, [id number] -EXTPURE <CR> TESTING LAB LOCATION: [facility] [address], [facility] [address] [place] [id number] COLLECTION SITE: Client: ??[facility] Location: ??[place] (B) Specimen Anatomical Collection Method Collection Time Receive d Time (Source) Location / / Volume Laterality Bone marrow 01/22/2019 11:09 01/22/2019 3:16 specimen AM CDT PM CDT (specimen) Candida [place] Performing Organization Address City/State/ZIP Code Phon e Number [place] FISH With Professional Interpretation (01/22/2019 11:09 AM CDT) Component Value Ref Test Analysis Performed At [facility] Method Time Signature Copath Report Patient Name: JENNIFER MENDEZ MR#: [id number] Specimen #: [id number] Collected: 01/22/2019 11:09 Received: 01/22/2019 15:16 Reported: 02/11/2019 18:15 Ordering Phy(s): CANDIDA RAMIREZ Additional Phy(s): Copy to [facility] RAFI HARTLEY For improved result formatting, select 'View Enhanced Report Format' under Linked Documents section. TEST(S) REQUESTED: FISH Interphase SPECIMEN DESCRIPTION: Bone Marrow Aspirate CLINICAL COMMENTS: MF - eval for MDS cytogenetic abnormalities METHODS: Specimen: Uncultured bone marrow aspirate Test performed: Fluorescence in situ hybridization (FISH) Interphase cells examined: 200 Probes: - [id number] (13q14.3) / LAMP1 (13q34) - Roy Molecular RESULTS: ABNORMAL - Loss of B71W516 (13q14.3) (52%) INTERPRETATION: Of the interphase cells examined, 52% had loss of V07H524 in 13q14. 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 A G-banding analysis is pending; upon completion, results of that study will be issued as a separate report ([id number]). ISCN: nuc adrian([id number])[104/200] PREVIOUS STUDIES: Date ??(Study ID) ?[id number] 09-14-15 ??([id number]) ? 15% BM: bone marrow Control ranges: P82Y110v3: 0-3.3% Analyte Specific Reagents (ASRs) are used in many laboratory tests necessary for standard medical care and generally do not require FDA approval. ??This test was ector edwards and its performance characteristics determined by the [facility]. ??It has not been cleared or approved by the U.S. Food and Drug Administration. Electronically Signed Out By: Rajani Ferreira M.D., [facility] Codes: A: 88050-GPVE, 62094-TSMLT TESTING LAB LOCATION: [address], [address] [phone] COLLECTION SITE: Client: ??[facility] Location: ??[place] (B) Specimen Anatomical Collection Method Collection Time Receive d Time (Source) Location / / Volume Laterality Bone marrow BONE MARROW 01/22/2019 11:09 01/22/2019 3:16 specimen STRUCTURE / AM CDT PM CDT (specimen) Unknown Candida PEARSON - PK ZIMMERMAN Performing Organization Address City/State/ZIP Code Phon e Number [place] CHROMOSOME BONE MARROW With Professional Interpretation (01/22/2019 11:09 AM CDT) Component Value Ref Test Analysis Performed At [facility] Method Time Signature Copath Report Patient Name: JENNIFER MENDEZ MR#: [id number] Specimen #: [id number] Collected: 01/22/2019 11:09 Received: 01/22/2019 15:16 Reported: 02/17/2019 23:44 Ordering Phy(s): CANDIDA RAMIREZ Additional Phy(s): RAFI NOLEN Copy to Special Hematology PAULINE HARTLEY For improved result formatting, select 'View Enhanced [...] of the previously re ported FISH analysis ([id number]) that showed 52% of the interphase cells examined to have only one R50I060 si gnal present. 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 Since the previous study ([id number] from 09-14-15), there has been expansion but no evolution of this c lone. Electronically Signed Out By: Rajani Ferreira M.D., [facility] Codes: A: 28551-EVKQM, 44972-UXQZC, 53724-HEDVOIK, 41007-WSESSY TESTING LAB LOCATION: [facility] [address], [facility] [address] [place] [address] COLLECTION SITE: Client: ??[facility] Location: ??[place] (B) Specimen Anatomical Collection Method Collection Time Receive d Time (Source) Location / / Volume Laterality Bone marrow BONE MARROW 01/22/2019 11:09 01/22/2019 3:16 specimen STRUCTURE / AM CDT PM CDT (specimen) Unknown Candida PEARSON - PK Performing Organization Address City/State/ZIP Code Phon e Number [place] Leukemia Lymphoma Evaluation (Flow Cytometry) (01/22/2019 11:09 AM CDT) Component Value Ref Test Analysis Performed At [facility] Method Time Signature Copath Report Patient Name: JENNIFER MENDEZ MR#: [id number] Specimen #: [id number] Collected: 01/22/2019 11:09 Received: 01/22/2019 12:19 Reported: [...] sampling differences. This sample may not be front desk representative. For classification purposes, the morphologic blast [...] Electronically signed out by: Aleyda Early M.D., Physicians This test was developed and its performance characteristics determined by [facility]. It has not been lamine [...] complexity clinical laboratory testing. CPT Codes: A: 90446-EZ, 85823-DKVDAZD, 95353-31-GXUE38(15), 76913-KTPA> 15 TESTING LAB LOCATION: [place] [id number] [facility] [address] [place] [phone] COLLECTION SITE: Client: ??[facility] Location: ??[place] (B) Specimen Anatomical Collection Method Collection Time Receive d Time (Source) Location / / Volume Laterality Bone marrow BONE MARROW 01/22/2019 11:09 01/22/2019 specimen STRUCTURE / AM CDT 12:19 PM CDT (specimen) Unknown Candida Ramirez MD LAB - BIBIATH SPECIAL DIAG OR DERABLES Performing Organization Address City/State/ZIP Code Phon e Number [place] Bone marrow biopsy (01/22/2019 11:01 AM CDT) Component Value Ref Test Analysis Performed Pathologis t Range Method Time At [facility] Patient Name: JENNIFER MENDEZ Report MR#: [id number] Specimen #: [id number] Collected: 01/22/2019 Received: 01/22/2019 Reported: 01/26/2019 10:51 Ordering Phy(s): PAULINE HARTLEY Additional Phy(s): Copy to Cytogenetics For improved [...] suggests a myelodysplastic/myeloprol iferative neoplasm. Flow cytometry ([id number]) identified no increase in myeloid blasts and no abnormal myeloid blast population I have personally reviewed all specimens and/or slides, incl uding the listed special stains, and used them with my medical judgment to determine the final diagnosis. Electronically signed out by: Margy Serrano M.D., [facility] Technical testing/processing performed at [place], [place] CLINICAL HISTORY: 48-year-old female was diagnosed with myeloid neoplasm with myelofibrosis in 2016 (slides not reviewed here, RM16-24). She has massive splenomegaly and is transfusion de pendent. ??She was treated with Jakafi, 2 clinical trial drugs (at [place]), and hydroxyurea with no response. REPORT: Procedure/Gross [...] Ref. Range U nits Result Date Hemogram/Diff/PLT [id number] WBC Count 4.4 4.0-11.0 10e9/L 06/2019 10:19 [...] potential dise ase distribution. CPT Codes: A: 49383-LOXT.T, 30048-HGOCY, 65612-SHOG, HBM, 67584-JZKP, 8 5060-MORPH, 21189-POYRL, 30060-XUXK.T, 58811-BQMSR, 46617-MFB, 56087-FJKN, 28290-MMLD, 96665-JZL TESTING LAB LOCATION: [facility], [address] ?? 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
--- OUTSIDE RECORDS SUMMARY | 2022-05-02 12:19 | XMS_ITS | Encounter Summary ---
:1970 Author Organization [facility] Address [address] [place] [address] Care Team Providers Name Role Phone No Ref-Primary, Physician Primary Care Provider [phone] Candida Epps MD Unavailable Shala Bell RN Unavailable Unavailable Encounter Details Date Type Department Care Team Description 01/16/2019 Travel Social History Tobacco Use Types Packs/Day [...] on filedocumented in this encounter Care Teams Airdrop Systems Technician Relationship Specialty Start Date End Date No Ref-Primary, PCP - General 09/30/17 Physician Candida Epps MD MD Internal Medicine 01/15/[address] [place] [address] [address] [place] [address] Shala Bell, HELENE Specialty [facility] Hematology & Oncology 01/15/19 07/23/21 Coordinator documented as of this encounter
--- OUTSIDE RECORDS SUMMARY | 2022-05-02 12:19 | XMS_ITS | Encounter Summary ---
:1970 Author Organization [facility] Address [address] [place] [address]. [place] [address] Care Team Providers Name Role Phone No Ref-Primary, Physician Primary Care Provider [phone] Encounter Details Date Type Department Care Team Description 12/14/2018 Medical Correspondence [facility] Scan, BLOOD/PLATELET/PLAS Health Info Mgmt Non-Provider MA ORDER FO RM Srv[facility] [address] [address] Social History Tobacco Use Types [...] filedocumented in this encounter Care Teams Supervisor Heat Treating Relationship Specialty Start Date End Date No Ref-Primary, Physician PCP - General 09/30/17 documented as of this encounter
--- OUTSIDE RECORDS SUMMARY | 2022-05-02 12:19 | XMS_ITS | Encounter Summary ---
:1970 Author Organization [facility] Address [address] [place] [address] Care Team Providers Name Role Phone No Ref-Primary, Physician Primary Care Provider Encounter Details Date Type Department Care Team Description 11/11/2018 Travel Social History Tobacco Use Types Packs/Day [...] on filedocumented in this encounter Care Teams Ergonomist Relationship Specialty Start Date End Date No Ref-Primary, Physician PCP - General 09/30/17 documented as of this encounter
--- OUTSIDE RECORDS SUMMARY | 2022-05-02 12:19 | XMS_ITS | Encounter Summary ---
:1970 Author Organization [facility] Address [address] [place] [address]. [place] [address] Care Team Providers Name Role Phone No Ref-Primary, Physician Primary Care Provider [phone] Reason for Visit Reason Comments Blood Transfusion 2 units pRBC's Encounter Details Date Type Department Care Team Description 12/19/2018 Infusion Therapy [facility] Edin Hu Myel oproliferative Visit Cancer Center MD disorder (H) (Primary Dx) [facility] ONCOLOGY [facility] HEMATOLOGY [facility] [address] [address] [place] [address] Social History Tobacco Use Types Packs/Day Years [...] Sign Reading Time Taken Comments Blood Pressure 113/62 12/19/2018 1:06 PM CDT Pulse 81 12/19/2018 1:06 PM CDT Temperature 36.8 ??C (98.2 ??F) 12/19/2018 1:06 PM CDT Respiratory Rate 18 12/19/2018 1:06 PM CDT Oxygen Saturation - - Inhaled Oxygen Concentration - - Weight - - Height - - Body Mass Index - - documented in this encounter Progress Notes Carlos White RN - 12/19/2018 9:30 AM CDT Infusion Nursing Note: Jennifer Dobbs presents today for 2 units pRBC's. Patient seen by provider today: No Books Binder present during visit today: Not Applicable. Note: N/A. Intravenous Access: Labs drawn without difficulty. Peripheral IV placed. Treatment Conditions: Blood transfusion consent signed 12/14/18. hgb 6.8 drawn at [facility] on 12/11/18. Post Infusion Assessment: Patient tolerated infusion without [...] with patient and/or family. Patient will return PRN for next appointment. Patient discharged in stable condition accompanied by: . Departure Mode: Ambulatory. Carlos White RN documented in this encounter Plan of Treatment Not on filedocumented as of this encounter Procedures Procedure Name Priority Date/Time Associated Diagnosis Comme nts TRANSFUSE RED Routine 12/19/2018 11:55 Myeloproliferative BLOOD CELL UNIT AM CDT disorder (H) TRANSFUSE RED Routine 12/19/2018 10:42 Myeloproliferative BLOOD CELL UNIT AM CDT disorder (H) BLOOD COMPONENT Routine 12/19/2018 9:36 Myeloproliferative Res ults for this AM CDT disorder (H) procedure are i n the results section. BLOOD COMPONENT Routine 12/19/2018 9:36 Myeloproliferative Res ults for this AM CDT disorder (H) procedure are i n the results section. ABO/RH TYPE AND STAT 12/19/2018 9:36 Myeloproliferative Res ults for this SCREEN AM CDT disorder (H) procedure are i n the results section. documented in this encounter Results Transfuse red blood cell unit (12/19/2018 1:06 PM CDT) Edin Hu MD IP NURSING BLOOD ADMINISTRAT ON Transfuse red blood cell unit (12/19/2018 1:06 PM CDT) Edin Hu MD IP NURSING BLOOD ADMINISTRAT ON Transfuse red blood cell unit (12/19/2018 11:55 AM CDT) Edin Hu MD NURSING BLOOD ADMINISTRAT ON Blood component (12/19/2018 9:36 AM CDT) [facility] Method Time Signature Unit Number [id number] 12/19/2018 [place] 10:28 AM CDT [facility] Blood Red Blood 12/19/2018 [place] Component Cells 10:28 AM CDT [facility] Reduced Division 00 12/19/2018 [facility] Number 10:28 AM CDT [facility] Status of Released to 12/19/2018 [place] Unit care unit 11:55 PM CDT [facility] Blood Product [id number] 12/19/2018 [facility] Code 10:28 AM CDT [facility] Unit Status [facility] Specimen Anatomical Collection Method Collection Time Receive d Time (Source) Location / / Volume Laterality 12/19/2018 9:36 AM 9 9:55 CDT AM CDT Edin Hu MD LABORATORY Performing Organization Address City/State/ZIP Code Phon e Number M [facility] [address] [address] [facility] [address] [address], [facility] [phone] Blood component (12/19/2018 9:36 AM CDT) [facility] Method Time Signature Unit Number [id number] 12/19/2018 [place] 10:28 AM CDT [facility] Blood Red Blood 12/19/2018 [place] Component Cells 10:28 AM CDT [facility] Reduced Division 00 12/19/2018 [facility] Number 10:28 AM CDT [facility] Status of Released to 12/19/2018 [place] Unit care unit 11:55 PM CDT [facility] Blood Product [id number] 12/19/2018 [facility] Code 10:28 AM CDT [facility] Unit Status [facility] Specimen Anatomical Collection Method Collection Time Receive d Time (Source) Location / / Volume Laterality 12/19/2018 9:36 AM 9 9:55 CDT AM CDT Edin Hu MD LABORATORY Performing Organization Address City/State/ZIP Code Phon e Number M [facility] [address] [address] [facility] [address] [address], [place] [phone] ABO/Rh type and screen (12/19/2018 9:36 AM CDT) [facility] gist Method Time Signature Units Ordered 2 12/19/2018 [place] 9:59 AM CDT [facility] ABO A 12/19/2018 [place] 10:27 AM CDT [facility] RH(D) Pos [facility] Antibody Neg 12/19/2018 [place] Screen 10:27 AM CDT [facility] Test Valid [place] 12/19/2018 [place] Only At [facility] 9:59 AM CDT [facility] Specimen 12/22/2018 12/19/2018 [place] Expires 9:59 AM CDT [facility] Crossmatch Red Blood 12/19/2018 [place] Cells 9:59 AM [facility] Specimen Anatomical Collection Method Collection Time Receive d Time (Source) Location / / Volume Laterality Blood specimen 12/19/2018 9:36 AM 019 9:55 (specimen) CDT AM CDT Edin Hu MD LAB - BLOOD BANK TEST ORDER Performing Organization Address City/[facility]/ZIP Code Phon e Number M [facility] [address] [address] [facility] [address] [address], [place] [phone] documented in this encounter Visit Diagnoses Diagnosis 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
--- OUTSIDE RECORDS SUMMARY | 2022-05-02 12:20 | XMS_ITS | Encounter Summary ---
:1970 Author Organization [facility] Address [address] [place] [address] Care Team Providers Name Role Phone No Ref-Primary, Physician Primary Care Provider Reason for Visit Reason Onset Date Comments Referral 10/28/2018 Via fax from [place] [facility] Encounter Details Date Type Department Care Team Description 10/28/2018 Telephone [facility] None Re ferral (Via fax from [place] [facility] Oncology) [address] [place], [place] [phone] Social History Tobacco Use Types Packs/Day Years Used Date Smoking Tobacco: Former Cigarettes Quit : 09/27/2012 Smokeless Tobacco: Never Comments: quit September 27, 2012 Alcohol Use Standard Drinks/Week Comments Yes 0 (1 standard drink = 0.6 oz pure alcoho l) 1 drink per week Sex Assigned at Date Recorded Not on file documented as of this encounter Miscellaneous Notes Telephone Encounter - Citlali Dixon - 10/28/2018 3:37 PM CDT ONCOLOGY INTAKE: Records Information APPT INFORMATION: Referring provider: Edin Hu Referring provider???s clinic: [place] [facility] Reason for visit/diagnosis: Myeloproliferative Disorder and Splenomegaly RECORDS INFORMATION: Were the records received with the referral (via Rightfax)? Yes ADDITIONAL INFORMATION: Please fax referral/records to Oncology records team upon scheduling documented in 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 Care Teams Game Tester Relationship Specialty Start Date End Date No Ref-Primary, Physician PCP - General 09/30/17 documented as of this encounter
--- OUTSIDE RECORDS SUMMARY | 2022-05-02 12:20 | XMS_ITS | Encounter Summary ---
:1970 Author Organization [place] Address [address] [place] [address] Care Team Providers Name Role Phone No Ref-Primary, Physician Primary Care Provider [phone] Encounter Details Date Type Department Care Team Description 10/26/2018 Travel Social History Tobacco Use Types Packs/Day [...] on filedocumented in this encounter Care Teams Replacer Relationship Specialty Start Date End Date No Ref-Primary, Physician PCP - General 09/30/17 documented as of this encounter
--- OUTSIDE RECORDS SUMMARY | 2022-05-02 12:20 | XMS_ITS | Encounter Summary ---
:1970 Author Organization [facility] Address [address] [place] [address] Care Team Providers Name Role Phone No Ref-Primary, Physician Primary Care Provider Encounter Details Date Type Department Care Team Description 09/17/2018 Travel Social History Tobacco Use Types Packs/Day [...] on filedocumented in this encounter Care Teams Construction Estimator Relationship Specialty Start Date End Date No Ref-Primary, Physician PCP - General 09/30/17 documented as of this encounter
--- OUTSIDE RECORDS SUMMARY | 2022-05-02 12:20 | XMS_ITS | Encounter Summary ---
:1970 Author Organization [place] Address [address] [place] [address] Care Team Providers Name Role Phone No Ref-Primary, Physician Primary Care Provider Encounter Details Date Type Department Care Team Description 10/25/2018 Travel Social History Tobacco Use Types Packs/Day [...] on filedocumented in this encounter Care Teams Drone Pilot Relationship Specialty Start Date End Date No Ref-Primary, Physician PCP - General 09/30/17 documented as of this encounter
--- OUTSIDE RECORDS SUMMARY | 2022-05-02 12:20 | XMS_ITS | Encounter Summary ---
:1970 Author Organization [facility] Address [address] [place] [address] Care Team Providers Name Role Phone No Ref-Primary, Physician Primary Care Provider Encounter Details Date Type Department Care Team Description 09/25/2018 Travel Social History Tobacco Use Types Packs/Day [...] on filedocumented in this encounter Care Teams Whiskey Regauger Relationship Specialty Start Date End Date No Ref-Primary, Physician PCP - General 09/30/17 documented as of this encounter
--- OUTSIDE RECORDS SUMMARY | 2022-05-02 12:20 | XMS_ITS | Encounter Summary ---
:1970 Author Organization [facility] Address [address] [place] [address] Care Team Providers Name Role Phone No Ref-Primary, Physician Primary Care Provider [phone] Encounter Details Date Type Department Care Team Description 09/25/2018 [facility] Edin Hu MD [place] ONCOLOGY HEMATOLOGY [address] [facility] [address] [place] [address] Myeloproliferative Encounter [facility] India Sharp NP [place] ONCOLOGY HEMATOLOGY [address] [facility] [address] [place], [place] [id number] disorder (H) [address] [place] [phone] Social History Tobacco Use Types Packs/Day Years [...] times daily 8.6-50 MG per tablet Sodium Take 1 tablet by 0 Bicarbonate-Citric Acid mouth (VASYL-SELTZER HEARTBURN PO) ALLOPURINOL PO Take 300 mg by mouth 0 10/26/2018 daily hydroxyurea (HYDREA) 500 Take 500 mg by mouth 0 12/19/2018 MG capsule CHEMO daily documented as of this encounter Plan of Treatment Not on filedocumented as of this encounter Procedures Procedure Name Priority Date/Time Associated Diagnosis Comme nts BLOOD COMPONENT Routine 09/25/2018 7:28 Myeloproliferative Re sults for this AM CDT disorder (H) procedure are i n the results section. BLOOD COMPONENT Routine 09/25/2018 7:28 Myeloproliferative Res ults for this AM CDT disorder (H) procedure are i n the results section. ABO/RH TYPE AND Routine 09/25/2018 7:28 Myeloproliferative Res ults for this SCREEN AM CDT disorder (H) procedure are i n the results section. documented in this encounter Results Blood component (09/25/2018 7:28 AM CDT) [facility] gist Method Time Signature Unit Number [id number] 09/25/2018 [facility] 8:09 AM [facility] Blood Red Blood 09/25/2018 [place] Component Cells 8:09 AM [facility] HOSPITAL Reduced Division 00 09/25/2018 [facility] Number 8:09 AM [facility] Status of Released to 09/25/2018 [place] Unit care unit 11:52 PM [facility] Blood Product [id number] 09/25/2018 [facility] Code 8:09 AM [facility] Unit Status [facility] Specimen Anatomical Collection Method Collection Time Receive d Time (Source) Location / / Volume Laterality 09/25/2018 7:28 AM 9 7:29 CDT AM CDT India Sharp NP LABORATORY Performing Organization Address City/State/ZIP Code Phon e Number M [facility] [address] [place], [place] [address] [facility] [address] [place], [place] [address], [facility] [phone] Blood component (09/25/2018 7:28 AM CDT) [facility] Method Time Signature Unit Number [id number] 09/25/2018 [place] 8:09 AM [facility] Blood Red Blood 09/25/2018 [place] Component Cells 8:09 AM [facility] HOSPITAL Reduced Division 00 09/25/2018 [place] Number 8:09 AM [facility] Status of Released to 09/25/2018 [place] Unit care unit 11:52 PM [facility] Blood Product [id number] 09/25/2018 [place] Code 8:09 AM [facility] Unit Status [facility] Specimen Anatomical Collection Method Collection Time Receive d Time (Source) Location / / Volume Laterality 09/25/2018 7:28 AM 9 7:29 CDT AM CDT India Sharp NP LABORATORY Performing Organization Address City/State/ZIP Code [facility] [address] [place], [place] [address] [facility] [address] [place], [place] [address], [facility] [phone] ABO/Rh type and screen (09/25/2018 7:28 AM CDT) [facility] Signature Units Ordered 2 09/25/2018 [place] 8:09 AM [facility] ABO A 09/25/2018 [place] 8:08 AM [facility] RH(D) Pos [facility] Antibody Neg 09/25/2018 [place] Screen 8:08 AM [facility] Test Valid [place] 09/25/2018 [place] Only At [facility] 8:09 AM [facility] Specimen 09/28/2018 09/25/2018 [place] Expires 8:09 AM [facility] Crossmatch Red Blood 09/25/2018 [place] Cells 8:09 AM [facility] Specimen Anatomical Collection Method Collection Time Receive d Time (Source) Location / / Volume Laterality Blood specimen 09/25/2018 7:28 AM 019 7:29 (specimen) CDT AM CDT India Sharp NP LAB - BLOOD BANK TEST ORDER Performing Organization Address City/State/ZIP Code Phon e Number M [facility] [address] [place], [place] [address] [facility] [address] [place], [place] [address] [place] [address] documented in this encounter 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
--- OUTSIDE RECORDS SUMMARY | 2022-05-02 12:20 | XMS_ITS | Encounter Summary ---
:1970 Author Organization [place] Address [address] [place] [id number] Care Team Providers Name Role Phone No Ref-Primary, Physician Primary Care Provider [phone] Encounter Details Date Type Department Care Team Description 10/25/2018 [facility] Edin Hu, Myelopro liferative Encounter [facility] Laboratory disorder (H) [address] HEMATOLOGY [place], [place] [address] [id number] [address] [place] [address] Social History Tobacco Use Types [...] Associated Diagnosis Comme nts BLOOD COMPONENT Routine 10/25/2018 11:10 Myeloproliferative Re sults for this AM CDT disorder (H) procedure are i n the results section. BLOOD COMPONENT Routine 10/25/2018 11:10 Myeloproliferative Re sults for this AM CDT disorder (H) procedure are i n the results section. ABO/RH TYPE AND Routine 10/25/2018 11:10 Myeloproliferative Re sults for this SCREEN AM CDT disorder (H) procedure are i n the results section. documented in this encounter Results Blood component (10/25/2018 11:10 AM CDT) [facility] gist Method Time Signature Unit Number [id number] 10/26/2018 [facility] 8:11 AM [facility] Blood Red Blood 10/26/2018 [facility] Component Cells 8:[address] [facility] Reduced Division 00 10/26/2018 [facility] Number 8:11 AM [facility] Status of Released to 10/26/2018 [place] Unit care unit 11:52 PM [facility] Blood Product [id number] 10/26/2018 [facility] Code 8:11 AM [facility] Unit Status ISS [facility] Specimen Anatomical Collection Method Collection Time Receive d Time (Source) Location / / Volume Laterality 10/25/2018 11:10 10/25/2018 AM CDT 11:12 AM CDT Rajani Miles APRN SALES RECORD CLERK LABORATORY Performing Organization Address City/State/ZIP Code Phon e Number [facility] [address] [place], [place] [address] [facility] [address] [place], [place] [address] [place] [address] Blood component (10/25/2018 11:10 AM CDT) [facility] Method Time Signature Unit Number [id number] 10/26/2018 [facility] 8:09 AM [facility] Blood Red Blood 10/26/2018 [facility] Component Cells 8:09 AM [facility] Reduced Division 00 10/26/2018 [facility] Number 8:09 AM [facility] Status of Released to 10/26/2018 [place] Unit care unit 11:52 PM [facility] Blood Product [id number] 10/26/2018 [facility] Code 8:09 AM [facility] Unit Status ISS [facility] Specimen Anatomical Collection Method Collection Time Receive d Time (Source) Location / / Volume Laterality 10/25/2018 11:10 10/25/2018 AM CDT 11:12 AM CDT Rajani Miles APRN SALES RECORD CLERK LABORATORY Performing Organization Address City/State/ZIP Code [facility] e Number [place] [address] [phone] [place] [address] [address] [phone] ABO/Rh type and screen (10/25/2018 11:10 AM CDT) [facility] Signature Units Ordered 2 10/26/2018 [place] 8:21 AM [facility] ABO A 10/25/2018 [facility] 11:50 AM [facility] RH(D) Pos [facility] Antibody Neg 10/25/2018 [facility] Screen 11:50 AM [facility] Test Valid [place] 10/25/2018 [facility] Only At [facility] 11:51 AM [facility] Specimen 10/28/2018 10/25/2018 [place] Expires 11:51 AM [facility] Crossmatch Red Blood 10/26/2018 [place] Cells 8:21 AM [facility] Specimen Anatomical Collection Method Collection Time Receive d Time (Source) Location / / Volume Laterality Blood specimen 10/25/2018 11:10 9 (specimen) AM CDT 11:12 AM CDT Rajani Miles APRN SALES RECORD CLERK LAB - BLOOD BANK TEST ORDE R Performing Organization Address City/State/ZIP Code Phon e Number [facility] [address] [place], [place] [address] [facility] [address] [place], [place] [address] [place] [address] documented in this encounter 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
--- OUTSIDE RECORDS SUMMARY | 2022-05-02 12:20 | XMS_ITS | Encounter Summary ---
:1970 Author Organization [place] Address [address] [place] [address] Care Team Providers Name Role Phone No Ref-Primary, Physician Primary Care Provider Encounter Details Date Type Department Care Team Description 11/09/2018 Travel Social History Tobacco Use Types Packs/Day [...] on filedocumented in this encounter Care Teams Vascular Technologist Sonographer Relationship Specialty Start Date End Date No Ref-Primary, Physician PCP - General 09/30/17 documented as of this encounter
--- OUTSIDE RECORDS SUMMARY | 2022-05-02 12:20 | XMS_ITS | Encounter Summary ---
:1970 Author Organization [place] Address [address] [place] [address] Care Team Providers Name Role Phone No Ref-Primary, Physician Primary Care Provider [phone] Reason for Visit Reason Comments Abdominal Pain Encounter Details Date Type Department Care Team Description 11/09/2018 Emergency [facility] Jolene Echevarria Sp lenic infarct; [facility] Emergency Dep t Abdominal pain, left upper quadrant; [address] [facility] EMERGENCY [place]IC[place] [address] 0286 [facility] [phone] [place], [place] [address] (Wo rk) Social History [...] Sign Reading Time Taken Comments Blood Pressure 106/77 11/09/2018 6:30 PM CDT Pulse 88 11/09/2018 6:30 PM CDT Temperature 37.1 ??C (98.8 ??F) 11/09/2018 4:35 PM CDT Respiratory Rate 20 11/09/2018 5:15 PM CDT Oxygen Saturation 93% 11/09/2018 6:30 PM CDT Inhaled Oxygen Concentration - - Weight 93.4 kg (206 lb) 11/09/2018 4:35 PM CDT Height 172.7 cm (5' 8) 11/09/2018 4:35 PM CDT Body Mass Index 31.32 11/09/2018 4:35 PM CDT documented in this encounter Discharge Instructions Discharge InstructionsJolene Echevarria MD - 11/09/2018 6:59 PM CDT Return to the ED if you are unable to tolerate fluids, intractable nausea or vomiting, severe abdominal pain, fevers >101 or other acute changes. Please follow up with your PCP in 2-3 days. Discharge Instructions Abdominal Pain Abdominal pain (belly pain) can be caused by many things. Your evaluation today does not show the exact cause for your pain. Your provider today has decided that it is unlikely your pain is due to a life threatening problem, or a problem requiring surgery or hospital admission. Sometimes those problems cannot be found right away, so it is very important that you follow up as directed. Sometimes only the changes which occur over time allow the cause of your pain to be found. Generally, every Emergency Department visit should have a follow-up clinic visit with either a primary or a specialty clinic/provider. Please follow-up as instructed by your emergency provider today. With abdominal pain, we often recommend very close follow-up, such as the following day. ADULTS: Return to the Emergency Department right away if: You get an oral temperature above 102oF or as directed by your provider. You have blood in your stools. This may be bright red or appear as black, tarry stools. You keep vomiting (throwing up) or cannot drink liquids. You see blood when you vomit. You cannot have a bowel movement or you cannot pass gas. Your stomach gets bloated or bigger. Your skin or the whites of your eyes look yellow. You faint. You have bloody, frequent or painful urination (peeing). You have new symptoms or anything that worries you. CHILDREN: Return to the Emergency Department right away if your child has any of the above-listed symptoms or the following: Pushes your hand away or screams/cries when his/her belly is touched. You notice your child is very fussy or weak. Your child is very tired and is too tired to eat or drink. Your child is dehydrated. Signs of dehydration can be: Significant change in the amount of wet diapers/urine. Your infant or child starts to have dry mouth and lips, or no saliva (spit) or tears. WOMEN: Return to the Emergency Department right away if you have any of the above-listed symptoms or the following: You have bleeding, leaking fluid or passing tissue from the vagina. You have worse pain or cramping, or pain in your shoulder or back. You have vomiting that will not stop. You have a temperature of 100oF or more. Your baby is not moving as much as usual. You faint. You get a bad headache with or without eye problems and abdominal pain. You have a seizure. You have unusual discharge from your vagina and abdominal pain. Abdominal pain is pretty common during . Your pain may or may not be related to your . You should follow-up closely with your OB provider so they can evaluate you and your baby. Untilyou follow-up with your regular provider, do the following: Avoid sex and do not put anything in your vagina. Drink clear fluids. Only take medications approved by your provider. MORE INFORMATION: Appendicitis: A possible cause of abdominal pain in any person who still has their appendix is acuteappendicitis. Appendicitis is often hard to diagnose. Testing does not always rule out early appendicitis or other causes of abdominal pain. Close follow-up with your provider and re-evaluations may beneeded to figure out the reason for your abdominal pain. Follow-up: It is very important that you make an appointment with your clinic and go to the appointment. If you do not follow-up with your primary provider, it may result in missing an important development which could result in permanent injury or disability and/or lasting pain. If there is any problem keeping your appointment, call your provider or return to the Emergency Department. Medications: Take your medications as directed by your provider today. Before using tgip-spc-[id number], ask your provider and make sure to take the medications as directed. If you have any questions about medications, ask your provider. Diet: Resume your normal diet as much as possible, but do not eat fried, fatty or spicy foods while you have pain. Do not drink alcohol or have caffeine. Do not smoke tobacco. Probiotics: If you have been given an antibiotic, you may want to also take a probiotic pill or eat yogurt with live cultures. Probiotics have good bacteria to help your intestines stay healthy. Studies have shown that probiotics help prevent diarrhea (loose stools) and other intestine problems (including C. diff infection) when you take antibiotics. You can buy these without a prescription in the pharmacy section of the store. If you were given a prescription for medicine here today, be sure to read all of the information (including the package insert) that comes with your prescription. This will include important information about the medicine, its side effects, and any warnings that you need to know about. The pharmacist who fills the prescription can provide more information and answer questions you may have about the medicine. If you have questions or concerns that the pharmacist cannot address, please call or return to the Emergency Department. Remember that you can always come back to the Emergency Department if you are not able to see your regular provider in the amount of time listed above, if you get any new symptoms, or if there is anything that worries you. documented in this encounter Medications at Time [...] 0 Bicarbonate-Citric Acid mouth (VASYL-SELTZER HEARTBURN PO) aspirin (ASA) 81 MG Take 81 mg by mouth 0 12/19/2018 chewable tablet daily hydroxyurea (HYDREA) 500 Take 500 mg by mouth 0 12/19/2018 MG capsule CHEMO daily documented as of this encounter ED Notes Marjorie Colvin RN - 11/09/2018 4:34 PM CDT Patient complaining of 10 days of severe mid abdominal pain. States she thought it was constipation from all the oxycodone she takes but it is getting worse. ABCs intact. Alert and oriented x 3. Jolene Echevarria MD - 11/09/2018 4:32 PM CDT History Chief Complaint: Abdominal pain HPI Jennifer Dobbs is a 48 year old female, with a history of myeloproliferative disorder, who presents with her to the emergency department for evaluation of left lower quadrant abdominal pain. The patient reports she started experiencing abdominal pain, which she believed was constipation, and to ok laxatives. She notes she had a bowel movement and the pain lessened but today she reports the pain became unbearable. She reports dysuria with the pain. She notes vomiting, but reports this is normal for her. She denies any fever, chills, bloody stools, lightheadedness, or dizziness. She reports she has taken her oxycodone and morphine, but this has not helped her pain. She notes she was taken offher hydroxyurea approximately one week prior to evaluation. She denies any history of abdominal surgeries. Allergies: No known drug allergies Medications: 81 mg Aspirin Lorazepam Senna-docusate Morphine Oxycodone Past Medical History: Myeloproliferative disorder Cervical cancer HTN Plantar fasciitis Past Surgical History: Bone marrow biopsy Tonsillectomy Myringotomies Family History: Heart disease HTN Cancer Social History: Smoking status: Former smoker. Quit date: 09/11/12 Alcohol use: Yes Drug use: Yes, marijuana The patient presents to the emergency department with her . Marital Status: [2] Review of Systems Constitutional: Negative for chills and fever. Gastrointestinal: Positive for abdominal pain. Negative for blood in stool. Genitourinary: Positive for dysuria. Neurological: Negative for dizziness and light-headedness. All other systems reviewed and are negative. Physical Exam Patient Vitals for the past 24 hrs: BP Temp Temp src Pulse Resp SpO2 Height Weight 11/09/18 1830 106/77 -- -- 88 -- 93 % -- -- 11/09/18 1815 145/76 -- -- 84 -- -- -- -- 11/09/18 1800 139/51 -- -- 90 -- -- -- -- 11/09/18 1730 143/66 -- -- 92 -- 95 % -- -- 11/09/18 1715 134/80 -- -- 83 20 98 % -- -- 11/09/18 1700 127/73 -- -- 82 -- 97 % -- -- 11/09/18 1637 (!) 135/107 -- -- -- -- -- -- -- 11/09/18 1635 -- 98.8 ??F (37.1 ??C) Oral 88 26 98 % 1.727 m (5' 8) 93.4 kg (206 lb) Physical Exam General: Resting on the bed. Head: No obvious trauma to head. Ears, Nose, Throat: External ears normal. Nose normal. Eyes: Conjunctivae clear. Neck: Normal range of motion. Neck supple. CV: Regular rate and rhythm. No murmurs. Respiratory: Effort normal and breath sounds normal. No wheezing or crackles. Gastrointestinal: Soft. No distension. There is diffuse left abdominal tenderness. There is voluntary guarding. Neuro: Alert. Moving all extremities appropriately. Normal speech. Skin: Skin is warm and dry. No rash noted. Emergency Department Course Imaging: Radiographic findings were communicated with the patient and family who voiced understanding of the findings. CT Abdomen Pelvis w Contrast IMPRESSION: 1. Marked interval increase in size in the spleen since the comparison study now measuring 30.2 cm previously 19.9 cm. 2. Areas of decreased enhancement in the spleen which are nonspecific but could represent infarcts. As read by Radiology. Laboratory: UA: Blood Trace, Albumin 20, Mucous Present, o/w negative CBC: HGB 7.3 (L) o/w WNL (WBC 5.3, PLT 170) CMP: Anion Gap 2 (L) o/w WNL (Creatinine 0.93) Lactic Acid (1646): 1.0 Lipase: 73 Interventions: 1652 Dilaudid 0.5 mg IV 1714 Dilaudid 0.5 mg IV 1817 Dilaudid 0.5 mg IV Emergency Department Course: Past medical records, nursing notes, and vitals reviewed. 1641: I performed an exam of the patient and obtained history, as documented above. IV inserted and blood drawn. The patient was sent for an abdomen pelvis CT while in the emergency department, findings above. 1825: I discussed the imaging results with the radiologist. 182: I discussed the patient with Dr. Zhao, of oncology. 183: I rechecked the patient. Findings and plan explained to the Patient. Patient would like to go home. Patient discharged home with instructions regarding supportive care, medications, and reasons to return. The importance of close follow-up was reviewed. 1908: I rechecked and updated the patient. Impression & Plan Medical Decision Makin-year-old female with history of mild low proliferative disorder subtype myelofibrosis presents with left abdominal sided pain. Vital signs are unremarkable. Broad differential pursued including not limited to anemia, electrolyte metabolic or renal dysfunction, infectious etiology, obstruction, perforation, constipation, hepatitis or pancreatitis, mesenteric ischemia or ischemic gut, etc. Overall patient is well-appearing but does have significant tenderness throughout her abdomen. Most notable inthe left middle abdomen. Lactate is normal not concerning for ischemic colitis or mesenteric ischemia. CBC shows no leukocytosis and chronic ongoing anemia 7.3. Patient is scheduled for transfusion, with hemoglobin above 7 no indication for emergent transfusion at present time. BMP shows no acute electrolyte metabolic or renal dysfunction. LFTs and lipase are reassuring not concerning for obstructivebiliary process, hepatitis, pancreatitis. UA is unremarkable no signs of infection. CT shows marked interval increase in the size of the spleen. There also appears to be an area of evolving infarct in the spleen. Discussed with on-call [place] oncology as patient is a complex patient of Dr. Hu. Inreviewing patient's chart it appears that she has been referred for possible splenectomy in the past. She is failing outpatient chemotherapy regarding her disease process. She is also due for a second opinion at the [facility] but has not yet followed with them. Oncology recommended that there is no acute interventions required at this time. The main goal is pain control. Discussed results with patient who would prefer to go home. She was offered admission for pain control but repeatedly requested to go home. Patient was advised to follow-up with her oncologist in 1-2 days. Strict return precautions were discussed. Patient was discharged in stable improved condition. Critical Care time: none Diagnosis: ICD-10-CM 1. 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 Abdominal pain, left upper quadrant R10.12 3. Splenomegaly R16.1 Disposition: Discharged to home. Discharge Medications: Medication List There are no discharge medications for this visit. Talha Mayank 11/09/2018 [facility] EMERGENCY DEPARTMENT Scribe Disclosure: I, Talha Talley, am serving as a scribe at 4:41 PM on 11/09/2018 to document services personally performed by Jolene Echevarria MD based on my observations and the provider's statements to me. Jolene Echevarria MD 11/09/18 191 documented in this encounter Plan of Treatment Not on filedocumented as of this encounter Procedures Procedure Name Priority Date/Time Associated Comments Diagnosis ROUTINE UA WITH STAT 11/09/2018 6:41 PM Splenic infarct Res ults for this MICROSCOPIC CDT procedure are i n the results section. CT ABDOMEN PELVIS W STAT 11/09/2018 5:59 PM Re sults for this CONTRAST CDT procedure are i n the results section. CBC WITH PLATELETS & STAT 11/09/2018 4:47 PM Splenic infarc t Results for this DIFFERENTIAL CDT procedure are i n the results section. LIPASE STAT 11/09/2018 4:47 PM Results f or this CDT procedure are i n the results section. LACTIC ACID WHOLE STAT 11/09/2018 4:47 PM Resu lts for this BLOOD CDT procedure are i n the results section. COMPREHENSIVE STAT 11/09/2018 4:47 PM Results for this METABOLIC PANEL CDT procedure ar e in the results section. documented in this encounter Results (ABNORMAL) UA with Microscopic (11/09/2018 6:41 PM CDT) [facility] Method Time Signature Color Urine Yellow 11/09/2018 [facility] 7:06 PM [facility] Appearance Urine Clear 11/09/2018 [facility] 7:06 PM [facility] Glucose Urine Negative NEG^Negat 11/09/2018 [place] otoniel mg/dL 7:06 PM [facility] Bilirubin Urine Negative NEG^Negat 11/09/2018 [place] otoniel 7:06 PM [facility] Ketones Urine Negative NEG^Negat 11/09/2018 [place] otoniel mg/dL 7:06 PM [facility] Specific [place] 1.010 1.003 - 11/09/2018 [place] Urine 1.035 7:06 PM [facility] Blood Urine Trace (A) NEG^Negat 11/09/2018 [place] otoniel 7:06 PM [facility] pH Urine 5.5 5.0 - 7.0 11/09/2018 [place] pH 7:06 PM [facility] Protein Albumin 20 (A) NEG^Negat 11/09/2018 [place] Urine otoniel mg/dL 7:06 PM [facility] Urobilinogen Normal 0.0 - 2.0 11/09/2018 [place] mg/dL mg/dL 7:06 PM [facility] Nitrite Urine Negative NEG^Negat 11/09/2018 [place] otoniel 7:06 PM [facility] Leukocyte Negative NEG^Negat 11/09/2018 [place] Esterase Urine otoniel 7:06 PM [facility] Source Midstream 11/09/2018 [place] Urine 6:42 PM [facility] WBC Urine 4 0 - 5 11/09/2018 [facility] /HPF 7:06 PM [facility] RBC Urine 1 0 - 2 11/09/2018 [facility] /HPF 7:06 PM [facility] Squamous 1 0 - 1 11/09/2018 [place] Epithelial /HPF /HPF 7:06 PM [facility] Mucous Urine Present (A) NEG^Negat 11/09/2018 [place] otoniel /LPF 7:06 PM [facility] Specimen (Source) Anatomical Collection Method Collection Time Re ceived Time Location / / Volume Laterality Examination of 11/09/2018 6:41 11/09/2018 6:46 midstream [facility]procedure) Jolene Echevarria MD LAB - URINE ORDERABLES Performing Organization Address City/State/ZIP Code Phon e Number M [facility] [address], [place] [address] [facility] [address] [place] [address] [address] [phone] CT Abdomen Pelvis w Contrast (11/09/2018 5:59 PM CDT) Anatomical Region Laterality Modality Abdomen/Pelvis, SUBRAD CT BODY, UMP CT ABDOMEN PELVIS, Computed Tomography RAD CT Specimen (Source) Anatomical Location Collection Method / Collectio n Time Received Time / Laterality Volume Impressions 11/09/2018 6:25 PM CDT IMPRESSION: 1. Marked interval increase in size in t he spleen since the comparison study now measuring 30.2 cm previously 1 9.9 cm. 2. Areas of decreased enhancement in the spleen which are nonspecific but could represent infarcts. ALEA GUAJARDO MD Narrative 11/09/2018 6:[address] ABDOMEN AND PELVIS WITH CONTRAST 11/09/2018 5:59 PM HISTORY: Abdominal pain, unspecified. Na usea, vomiting. COMPARISON: August 28, 2015 TECHNIQUE: Volumetric helical acquisitio n of CT images from the lung bases through the symphysis pubis after the administration of 100mL Isovue-370 ??intravenous contrast. Radia tion dose for this scan was reduced using automated exposure control , adjustment of the mA and/or kV according to patient size, or iterati ve reconstruction technique. FINDINGS: Massive splenomegaly with sple en measuring 30.2 cm. Previously this measured 19.9 cm. There is a nonenhancing area in the inferior spleen, this could represent a splenic infarct. This measures 4.2 x 4.8 cm. Linear low density seen whitfield periorly, and a tiny low dense lesion superiorly and medially noted, th is could represent additional smaller infarcts. Ultimately they are in determinant. Survey of the visualized bony structures demonstrates no destructive bony lesions. Lung bases clear. Trace free fluid. Ther e are no dilated loops of small intestine or large bowel to sugges t ileus or obstruction. There is cholelithiasis without evidence for c holecystitis. Unremarkable appendix. No hydronephrosis. Liver, adre nal glands, pancreas, and spleen are unremarkable. Procedure Note Alea Guajardo MD - 11/09/2018Fo rmatting of this note might be different from the original. CT ABDOMEN AND PELVIS WITH CONTRAST 11/09 5:59 PM HISTORY: Abdominal pain, unspecified. Na usea, vomiting. COMPARISON: August 28, 2015 TECHNIQUE: Volumetric helical acquisitio n of CT images from the lung bases through the symphysis pubis after the administration of 100mL Isovue-370 intravenous contrast. Radiati on dose for this scan was reduced using automated exposure control , adjustment of the mA and/or kV according to patient size, or iterati ve reconstruction technique. FINDINGS: Massive splenomegaly with sple en measuring 30.2 cm. Previously this measured 19.9 cm. There is a nonenhancing area in the inferior spleen, this could represent a splenic infarct. This measures 4.2 x 4.8 cm. Linear low density seen whitfield periorly, and a tiny low dense lesion superiorly and medially noted, th is could represent additional smaller infarcts. Ultimately they are in determinant. Survey of the visualized bony structures demonstrates no destructive bony lesions. Lung bases clear. Trace free fluid. Ther e are no dilated loops of small intestine or large bowel to sugges t ileus or obstruction. There is cholelithiasis without evidence for c holecystitis. Unremarkable appendix. No hydronephrosis. Liver, adre nal glands, pancreas, and spleen are unremarkable. IMPRESSION: 1. Marked interval increase in size in t he spleen since the comparison study now measuring 30.2 cm previously 1 9.9 cm. 2. Areas of decreased enhancement in the spleen which are nonspecific but could represent infarcts. ALEA GUAJARDO MD Jolene Echevarria MD IMG CT ORDERABLES Lactic acid whole blood (11/09/2018 4:47 PM CDT) athologist Signature Lactic Acid 1.0 0.7 - 2.0 11/09/2018 [place] mmol/L 5:09 PM CDT [facility] Specimen Anatomical Collection Method Collection Time Receive d Time (Source) Location / / Volume Laterality Blood specimen 11/09/2018 4:47 PM 019 5:03 (specimen) CDT PM CDT Jolene Echevarria MD LAB - BLOOD ORDERABLES Performing Organization Address City/State/ZIP Code Phon e Number M [facility] [address], [place] [address] [facility] [address] [phone] Lipase (11/09/2018 4:47 PM CDT) athologist Signature Lipase 73 73 - 393 11/09/2018 [facility] U/L 5:25 PM CDT HOSPITAL Specimen Anatomical Collection Method Collection Time Receive d Time (Source) Location / / Volume Laterality Blood specimen 11/09/2018 4:47 PM 04/29/2 019 5:04 (specimen) CDT PM CDT Jolene Echevarria MD LAB - BLOOD ORDERABLES Performing Organization Address City/State/ZIP Code Phon e [place] M [facility] [address], [place] [address] [facility] [address] [place], [place] [address] [facility] [phone] (ABNORMAL) Comprehensive metabolic panel (11/09/2018 4:47 PM CDT) athologist Signature Sodium 139 133 - 144 11/09/2018 [place] mmol/L 5:16 PM [facility] Potassium 4.4 3.4 - 5.3 11/09/2018 [place] mmol/L 5:16 PM [facility] Chloride 107 94 - 109 11/09/2018 [place] mmol/L 5:16 PM [facility] Carbon Dioxide 30 20 - 32 11/09/2018 [place] mmol/L 5:23 PM [facility] Anion Gap 2 (L) 3 - 14 11/09/2018 [place] mmol/L 5:23 PM [facility] Glucose 91 70 - 99 11/09/2018 [place] mg/dL 5:23 PM [facility] Urea Nitrogen 13 7 - 30 11/09/2018 [place] mg/dL 5:23 PM [facility] Creatinine 0.93 0.52 - 11/09/2018 [place] 1.04 mg/dL 5:23 PM [facility] GFR Estimate 71 >60 11/09/2018 [place] mL/min/{1. 5:23 PM [facility] 73_m2} HOSPITAL Comment: Non GFR Calc Starting 06/30/2018, serum creatinine ba sed estimated GFR (eGFR) will be calculated using the Chronic Kidney Dise ase Epidemiology Collaboration (CKD-EPI) equation. GFR Estimate If 83 >60 mL/min/{1.73_m2} 11/09/2018 5: 23 PM [facility] Comment: GFR Calc Starting 06/30/2018, serum creatinine ba sed estimated GFR (eGFR) will be calculated using the Chronic Kidney Dise ase Epidemiology Collaboration (CKD-EPI) equation. Calcium 9.2 8.5 - 10.1 mg/dL 11/09/2018 5:23 PM [facility] Bilirubin Total 1.2 0.2 - 1.3 mg/dL 11/09/2018 5:25 PM [facility] Albumin 4.0 3.4 - 5.0 g/dL 11/09/2018 5:25 PM [facility] Protein Total 7.3 6.8 - 8.8 g/dL 11/09/2018 5:25 PM [facility] Alkaline Phosphatase 41 40 - 150 U/L 11/09/2018 5:25 PM [facility] ALT 10 0 - 50 U/L 11/09/2018 5:25 PM [facility] AST 23 0 - 45 U/L 11/09/2018 5:25 PM [facility] Specimen Anatomical Collection Method Collection Time Receive d Time (Source) Location / / Volume Laterality Blood specimen 11/09/2018 4:47 PM 019 5:04 (specimen) CDT [facility] Jolene Echevarria MD LAB - BLOOD ORDERABLES Performing Organization Address City/State/ZIP Code Phon e Number M [place] [address] [place] [address] [facility] [address] [phone] (ABNORMAL) CBC with platelets differential (11/09/2018 4:47 PM CDT) [facility] Method Time Signature WBC 5.3 4.0 - 11/09/2018 [facility] 11.0 5:29 PM [facility] 10e9/L HOSPITAL RBC Count 2.78 (L) 3.8 - 5.2 11/09/2018 [facility] 10e12/L 5:29 PM [facility] Hemoglobin 7.3 (L) 11.7 - 11/09/2018 [facility] 15.7 g/dL 5:29 PM [facility] Hematocrit 24.9 (L) 35.0 - 11/09/2018 [facility] 47.0 % 5:29 PM [facility] MCV 90 78 - 100 11/09/2018 [facility] fl 5:29 PM [facility] MCH 26.3 (L) 26.5 - 11/09/2018 [facility] 33.0 pg 5:29 PM [facility] MCHC 29.3 (L) 31.5 - 11/09/2018 [facility] 36.5 g/dL 5:29 PM [facility] RDW 25.2 (H) 10.0 - 11/09/2018 [facility] 15.0 % 5:29 PM [facility] Platelet Count 170 150 - 450 11/09/2018 [place] 10e9/L 5:29 PM [facility] Diff Method Manual 11/09/2018 [place] Differential 5:56 PM [facility] Comment: Engine Builder Performed % Neutrophils 72.0 % 11/09/2018 5:56 [place] [facility] % Lymphocytes 19.0 % 11/09/2018 5:56 [place] [facility] % Monocytes 4.0 % 11/09/2018 5:56 [place] [facility] % Eosinophils 2.0 % 11/09/2018 5:56 [place] [facility] % Basophils 0.0 % 11/09/2018 5:56 [place] [facility] % Metamyelocytes 2.0 % 11/09/2018 5:56 [facility] [facility] CDT HOSPITAL % Myelocytes 1.0 % 11/09/2018 5:56 [place] [facility] Nucleated RBCs 6 (H) 0 /100 11/09/2018 5:56 [place] [facility] CDT HOSPITAL Absolute Neutrophil 3.8 1.6 - 8.3 11/09/2018 5:56 [place] 10e9/L PM [facility]T [facility]OSPITAL Absolute Lymphocytes 1.0 0.8 - 5.3 11/09/2018 5:56 [place] [facility] [facility] 10e9/L PM [facility]T [facility]PITAL Absolute Monocytes 0.2 0.0 - 1.3 11/09/2018 5:56 [place] [facility] 10e9/L PM CDT HOSPITAL Absolute Eosinophils 0.1 0.0 - 0.7 11/09/2018 5:56 [place] 10e9/L PM [facility]T [facility]PITAL Absolute Basophils 0.0 0.0 - 0.2 11/09/2018 5:56 [facility] [place] 10e9/L PM [facility] Absolute 0.1 (H) 0 10e9/L 11/09/2018 5:56 [place] [facility] [facility] Metamyelocytes PM CDT HOSPITAL Absolute Myelocytes 0.1 (H) 0 10e9/L 11/09/2018 5:56 [facility] CDT HOSPITAL Absolute Nucleated RBC 0.3 11/09/2018 5:56 [facility] CDT HOSPITAL Anisocytosis Marked 11/09/2018 5:56 [place] [facility] PM [facility]T [facility]OSPITAL RBC Fragments Slight 11/09/2018 5:56 [place] [facility] PM [facility]T [facility]OSPITAL Teardrop Cells Slight 11/09/2018 5:56 [facility] CDT HOSPITAL Microcytes Present 11/09/2018 5:56 [place] [facility] PM [facility]T [facility]OSPITAL Platelet Estimate Automated count 11/09/2018 5:56 [facility] confirmed. PM CDT HOSPITAL Platelet morphology is normal. Specimen Anatomical Collection Method Collection Time Receive d Time (Source) Location / / Volume Laterality Blood specimen 11/09/2018 4:47 PM 019 5:04 (specimen) CDT PM CDT Jolene Echevarria MD LAB - BLOOD ORDERABLES Performing Organization Address City/State/ZIP Code Phon e Number M [place] [address] [phone] documented in this encounter Visit Diagnoses Diagnosis Splenic infarct Other diseases of spleen Abdominal pain, left upper quadrant Splenomegaly documented in this encounter Administered Medications Inactive Administered Medications - up to 3 most recent administrations Medication Order MAR Action Action Date Dose Rate Site 0.9% sodium chloride BOLUS New Bag 11/09/2018 5:45 PM CDT 65 mLs Intravenous, 100 mL, ONCE, On Fri11/09/18 at 1746, For 1 dose HYDROmorphone (PF) (DILAUDID) injection 0.5 Given 11/09/2018 6:17 PM CDT 0.5 mg mg 0.5 mg, Intravenous, EVERY 15 MIN PRN, moderate to severe pain, Starting on Fri11/09/18 at 1649, For 3 doses, For ordered IV doses 0.1-4 mg give IV Push undiluted. Administer each 2mg over 2-5 minutes. Given 11/09/2018 5:14 PM CDT 0.5 mg Given 11/09/2018 4:52 PM CDT 0.5 mg iopamidol (ISOVUE-370) solution 500 mL Given 11/09/2018 5:45 PM CDT 100 mLs 500 mL, Intravenous, ONCE, On 11/09/18 at 1746, For 1 dose documented in this encounter Active and Recently Administered Medications Times are shown in CDT. Scheduled Medication Order 11/07/2018 11/08/2018 11/09/2018 0.9% sodium chloride BOLUS (COMPLETED) 1745 (New Bag - Provider: Sonia Perry)1754 (Stopped - Provider: Sonia Perry) Intravenous, 100 mL, ONCE, Fri11/09/18 at 1746, For 1 dose iopamidol (ISOVUE-370) solution 500 mL (COMPLETED) 1745 (Given - Provider: Sonia Perry - Comment: bulk) 500 mL, Intravenous, ONCE, 11/09/18 at 1746, For 1 dose PRN Medication Order 11/07/2018 11/08/2018 11/09/2018 HYDROmorphone (PF) (DILAUDID) injection 0.5 mg (COMPLETED) 1652 (Given - Provider: Marjorie Colvin, HELENE)1714 (Given - Provider: Lm Esquivel RN)1817 (Given - Provider: Marjorie Colvin, HELENE) 0.5 mg, Intravenous, EVERY 15 MIN PRN, 3 doses, Starting 11/09/18 at 1649, Until Discontinued, moderate to severe pain, For ordered IV doses 0.1-4 mg give IV Push undiluted. Administer each 2mg over 2-5 minutes. documented in this encounter Care Teams Web Design Intern Relationship Specialty Start Date End Date No Ref-Primary, Physician PCP - General 09/30/17 documented as of this encounter
--- OUTSIDE RECORDS SUMMARY | 2022-05-02 12:20 | XMS_ITS | Encounter Summary ---
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 disorder (H) (Primary Dx) [facility] Medical Ctr HEMATOLOGY [place] [address] [place] [address] [place] [phone] Social History Tobacco Use Types Packs/Day Years [...] Sign Reading Time Taken Comments Blood Pressure 130/82 10/26/2018 3:07 PM CDT Pulse - - Temperature 36.8 ??C (98.2 ??F) 10/26/2018 3:07 PM CDT Respiratory Rate 16 10/26/2018 3:07 PM CDT Oxygen Saturation 96% 10/26/2018 3:07 PM CDT Inhaled Oxygen Concentration - - Weight - - Height - - Body Mass Index - - documented in this encounter Progress Notes Bre Mosher RN - 10/26/2018 12:00 PM CDT Infusion Nursing Note: Jennifer Dobbs presents today for 2 units PRBC. Patient seen by provider today: No Academic Affairs Coordinator present during visit today: Not Applicable. Note: N/A. Intravenous Access: Peripheral IV placed. Treatment Conditions: Blood transfusion consent signed 08/02/18. HGB 6.9. Post Infusion Assessment: Patient tolerated infusion without incident. Blood return noted pre and post infusion. Site patent and intact, free from redness, edema or discomfort. No evidence of extravasations. Access discontinued per protocol. Discharge Plan: Patient discharged in stable condition accompanied by: sister. Departure Mode: Ambulatory. Bre Mosher RN documented in this encounter Plan of Treatment Not on filedocumented as of this encounter Procedures Procedure Name Priority Date/Time Associated Diagnosis Comme nts TRANSFUSE RED BLOOD Routine 10/26/2018 1:55 PM Myeloproliferat otoniel disorder CELL UNIT CDT (H) TRANSFUSE RED BLOOD Routine 10/26/2018 12:34 PM Myeloprolifera tive disorder CELL UNIT CDT (H) documented in this encounter Results Transfuse red blood cell unit (10/26/2018 3:34 PM CDT) Rajani Miles APRN, CNP IP NURSING BLOOD ADMINISTR ATON Transfuse red blood cell unit (10/26/2018 3:34 PM CDT) Rajani Miles APRN, CNP IP NURSING BLOOD ADMINISTR ATON Transfuse red blood cell unit (10/26/2018 1:51 PM CDT) Rajani Miles APRN, CNP IP NURSING BLOOD ADMINISTR ATON ABO/Rh type and screen (10/25/2018 11:10 AM CDT) [facility] Method Time Signature Units Ordered 2 10/26/2018 [place] 8:21 AM CDT [facility] ABO A 10/25/2018 [place] 11:50 AM CDT [facility] RH(D) Pos [facility] Antibody Neg 10/25/2018 [place] Screen 11:50 AM T [facility] Test Valid [place] 10/25/2018 [facility] Only At [facility] 11:51 AM [facility] [place] [facility] Specimen 10/28/2018 10/25/2018 [place] Expires 11:51 AM [facility] Crossmatch Red Blood 10/26/2018 [place] Cells 8:21 AM [facility] Specimen Anatomical Collection Method Collection Time Receive d Time (Source) Location / / Volume Laterality Blood specimen 10/25/2018 11:10 9 (specimen) AM CDT 11:12 AM CDT Rajani Miles APRN SOLDER MAKING SUPERVISOR LAB - BLOOD BANK TEST ORDE R Performing Organization Address City/State/ZIP Code Phon e Number M [facility] [address] [place] [address] [facility] [address] [phone] documented in this encounter Visit Diagnoses Diagnosis 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
--- OUTSIDE RECORDS SUMMARY | 2022-05-02 12:20 | XMS_ITS | Encounter Summary ---
:1970 Author Organization [place] Address [address] [place] [address] Care Team Providers Name Role Phone No Ref-Primary, Physician Primary Care Provider [phone] Encounter Details Date Type Department Care Team Description 11/11/2018 [facility] Arleen Miles, CARDING UTILITY TENDER SPINNERET PERSON [place] [facility] [email or web address] [address] Myeloproliferative Encounter [facility] Edin Hu MD [place] [facility] [address] [address] disorder (H) [address] [place] [phone] Social History Tobacco Use Types Packs/Day Years [...] Associated Diagnosis Comme nts BLOOD COMPONENT Routine 11/11/2018 7:43 Myeloproliferative Res ults for this AM CDT disorder (H) procedure are i n the results section. BLOOD COMPONENT Routine 11/11/2018 7:43 Myeloproliferative Res ults for this AM CDT disorder (H) procedure are i n the results section. ABO/RH TYPE AND Routine 11/11/2018 7:43 Myeloproliferative Res ults for this SCREEN AM CDT disorder (H) procedure are i n the results section. documented in this encounter Results Blood component (11/11/2018 7:43 AM CDT) [facility] Method Time Signature Unit Number [id number] 11/11/2018 [facility] 12:58 PM [facility] Blood Red Blood 11/11/2018 [place] Component Cells 12:58 PM [facility] Leukocyte HOSPITAL Reduced Division 00 11/11/2018 [facility] Number 12:58 PM [facility] Status of Released to 11/11/2018 [place] Unit care unit 11:52 PM [facility] Blood Product [id number] 11/11/2018 [facility] Code 12:58 PM [facility] Unit Status ISS [facility] Specimen Anatomical Collection Method Collection Time Receive d Time (Source) Location / / Volume Laterality 11/11/2018 7:43 AM 9 7:44 CDT AM CDT Edin Hu MD LABORATORY Performing Organization Address City/State/ZIP Code Phon e Number M [place] [address] [address] [place], [place] [address] [facility] [address] [place], [place] [address], [facility] [phone] Blood component (11/11/2018 7:43 AM CDT) [facility] Method Time Signature Unit Number [id number] 11/11/2018 [facility] 9:04 AM [facility] Blood Red Blood 11/11/2018 [facility] Component Cells 9:04 AM [facility] Leukocyte HOSPITAL Reduced Division 00 11/11/2018 [facility] Number 9:04 AM [facility] Status of No longer 11/11/2018 [facility] Unit available 12:58 PM [facility] 11/11/2018 HOSPITAL 1258 Blood Product [id number] 11/11/2018 [facility] Code 9:04 AM [facility] Unit Status RET [facility] Specimen Anatomical Collection Method Collection Time Receive d Time (Source) Location / / Volume Laterality 11/11/2018 7:43 AM 9 7:44 CDT AM CDT Edin Hu MD LABORATORY Performing Organization Address City/State/ZIP Code Phon e Number M [facility] [address] [place], [place] [address] [facility] [address] [place], [place] [address], [facility] [phone] ABO/Rh type and screen (11/11/2018 7:43 AM CDT) [facility] Signature Units Ordered 1 11/11/2018 [facility] 9:04 AM [facility] ABO A 11/11/2018 [facility] 9:40 AM [facility] RH(D) Pos [facility] Antibody Neg 11/11/2018 [place] Screen 8:59 AM [facility] Test Valid [place] 11/11/2018 [facility] Only At [facility] 9:04 AM [facility] HOSPITAL Specimen 11/14/2018 11/11/2018 [facility] Expires 9:04 AM [facility] Crossmatch Red Blood 11/11/2018 [facility] Cells 9:04 AM CDT [facility] Specimen Anatomical Collection Method Collection Time Receive d Time (Source) Location / / Volume Laterality Blood specimen 11/11/2018 7:43 AM 019 7:44 (specimen) CDT AM CDT Edin Hu MD LAB - BLOOD BANK TEST ORDER Performing Organization Address City/State/ZIP Code Phon e Number M 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
--- OUTSIDE RECORDS SUMMARY | 2022-05-02 12:20 | XMS_ITS | Encounter Summary ---
:1970 Author Organization [place] Address [address] [place] [address] Care Team Providers Name Role Phone No Ref-Primary, Physician Primary Care Provider [phone] Reason for Visit Reason Comments Blood Transfusion 2 units PRBC Encounter Details Date Type Department Care Team Description 09/25/[address] [facility] Visit Cancer Center FENG Leyva disorder (H) (Primary Dx) [facility] ONCOLOGY [facility] Medical Ctr HEMATOLOGY [facility] [address] [address] [place] [address] [place] [address] [phone] Social History Tobacco Use Types Packs/Day Years [...] Sign Reading Time Taken Comments Blood Pressure 118/55 09/25/2018 11:43 AM CDT Pulse 84 09/25/2018 9:00 AM CDT Temperature 37.1 ??C (98.8 ??F) 09/25/2018 11:43 AM CDT Respiratory Rate 16 09/25/2018 11:43 AM CDT Oxygen Saturation 100% 09/25/2018 11:43 AM CDT Inhaled Oxygen Concentration - - Weight - - Height - - Body Mass Index - - documented in this encounter Progress Notes Margy Zaldivar RN - 09/25/2018 8:00 AM CDT Infusion Nursing Note: Jennifer Dobbs presents today for 2 units PRBC. Patient seen by provider today: No Comedian present during visit today: Not Applicable. Note: Patient complains of feeling fatigued, short of breath, and chest pain. Pt spoke with her physician yesterday and reported symptoms. Intravenous Access: Peripheral IV placed. Treatment Conditions: Blood transfusion consent signed 05/19/18. Hgb 6.6. Post Infusion Assessment: Patient tolerated infusion without incident. Blood return noted pre and post infusion. Site patent and intact, free from redness, edema or discomfort. No evidence of extravasations. Access discontinued per protocol. Discharge Plan: Discharge instructions reviewed with: Patient. Patient and/or family verbalized understanding of discharge instructions and all questions answered. Copy of AVS reviewed with patient and/or family. Patient discharged in stable condition accompanied by: self. Departure Mode: Ambulatory. Margy Zaldivar RN documented in this encounter Plan of Treatment Not on filedocumented as of this encounter Procedures Procedure Name Priority Date/Time Associated Diagnosis Comme nts TRANSFUSE RED BLOOD Routine 09/25/2018 10:29 AM Myeloprolifera tive disorder CELL UNIT CDT (H) TRANSFUSE RED BLOOD Routine 09/25/2018 8:45 AM Myeloproliferat otoniel disorder CELL UNIT CDT (H) documented in this encounter Results Transfuse red blood cell unit (09/25/2018 11:57 AM CDT) [facility] NP IP NURSING BLOOD ADMINISTRAT ON Transfuse red blood cell unit (09/25/2018 11:57 AM CDT) [facility] DOG DAYCARE PROVIDER IP NURSING BLOOD ADMINISTRAT ON Transfuse red blood cell unit (09/25/2018 10:16 AM CDT) [place] [facility] NP IP NURSING BLOOD ADMINISTRAT ON ABO/Rh type and screen (09/25/2018 7:28 AM CDT) [facility] Time Signature Units Ordered 2 09/25/2018 [place] 8:09 AM CDT [facility] ABO A 09/25/2018 [facility] 8:08 AM [facility] RH(D) Pos [facility] Antibody Neg 09/25/2018 [facility] Screen 8:08 AM [facility] Test Valid [place] 09/25/2018 [facility] Only At [facility] 8:09 AM [facility] Specimen 09/28/2018 09/25/2018 [facility] Expires 8:09 AM [facility] Crossmatch Red Blood 09/25/2018 [facility] Cells 8:09 AM [facility] Specimen Anatomical Collection Method Collection Time Receive d Time (Source) Location / / Volume Laterality Blood specimen 09/25/2018 7:28 AM 019 7:29 (specimen) CDT AM CDT [place] [facility] NP LAB - BLOOD BANK TEST ORDER Performing Organization Address City/State/ZIP Code Phon e Number M [facility] [address] [place] [address] [facility] [address] [phone] documented in this encounter Visit Diagnoses Diagnosis 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
--- OUTSIDE RECORDS SUMMARY | 2022-05-02 12:20 | XMS_ITS | Encounter Summary ---
:1970 Author Organization [place] Address [address] [place] [address] Care Team Providers Name Role Phone No Ref-Primary, Physician Primary Care Provider [phone] Reason for Visit Reason Comments Blood Transfusion 1 unit PRBC's Encounter Details Date Type Department Care Team Description 09/17/[address] [facility] Visit Cancer Center FENG Leyva disorder (H) (Primary Dx) [facility]COLOGY [facility] Medical Ctr HEMATOLOGY [facility] [address] [address] [place] [address] [place] [address] [phone] Social History Tobacco Use Types Packs/Day Years [...] Sign Reading Time Taken Comments Blood Pressure 107/72 09/17/2018 9:46 AM RUBY ON RAILS WEB DEVELOPER Pulse 82 09/17/2018 9:46 AM RUBY ON RAILS WEB DEVELOPER Temperature 37 ??C (98.6 ??F) 09/17/2018 9:46 AM RUBY ON RAILS WEB DEVELOPER Respiratory Rate 16 09/17/2018 9:46 AM RUBY ON RAILS WEB DEVELOPER Oxygen Saturation 99% 09/17/2018 9:46 AM RUBY ON RAILS WEB DEVELOPER Inhaled Oxygen Concentration - - Weight - - Height - - Body Mass Index - - documented in this encounter Progress Notes Fatuma Amador RN - 09/17/2018 8:00 AM CST Infusion Nursing Note: Jennifer Dobbs presents today for 1 unit PRBC's. Patient seen by provider today: No Business Intelligence Architect present during visit today: Not Applicable. Note: Patient has c/o dizziness, visual changes (blurred vision and seeing spots), headaches and fatigue/SOB. Intravenous Access: Peripheral IV placed. Treatment Conditions: Blood transfusion consent signed 05/19/18. Post Infusion Assessment: Patient tolerated infusion without incident. Blood return noted pre and post infusion. Site patent and intact, free from redness, edema or discomfort. No evidence of extravasations. Access discontinued per protocol. Discharge Plan: Discharge instructions reviewed with: Patient. Patient discharged in stable condition accompanied by: . Departure Mode: Ambulatory. EMMA RITCHIE RN ON RAILS WEB DEVELOPER documented in this encounter Plan of Treatment Not on filedocumented as of this encounter Procedures Procedure Name Priority Date/Time Associated Diagnosis Comme nts TRANSFUSE RED BLOOD Routine 09/17/2018 8:30 AM Myeloproliferat otoniel disorder CELL UNIT RUBY ON RAILS WEB DEVELOPER (H) documented in this encounter Results Transfuse red blood cell unit (09/17/2018 9:47 AM RUBY ON RAILS WEB DEVELOPER) [facility] HOUSEKEEPER HEAD IP NURSING BLOOD ADMINISTRAT ON Transfuse red blood cell unit (09/17/2018 9:47 AM RUBY ON RAILS WEB DEVELOPER) [place] [facility] HOUSEKEEPER HEAD IP NURSING BLOOD ADMINISTRAT ON ABO/Rh type and screen (09/16/2018 5:40 PM RUBY ON RAILS WEB DEVELOPER) [facility] Method Time Signature Units Ordered 1 09/16/2018 [facility] 6:38 PM [facility] ABO A 09/16/2018 [facility] 6:33 PM [facility] RH(D) Pos [facility] Antibody Neg 09/16/2018 [facility] Screen 6:33 PM [facility] Test Valid [place] 09/16/2018 [facility] Only At [facility] 6:38 PM [facility] Specimen 09/19/2018 09/16/2018 [facility] Expires 6:38 PM [facility] Crossmatch Red Blood 09/16/2018 [facility] Cells 6:38 PM 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
--- OUTSIDE RECORDS SUMMARY | 2022-05-02 12:21 | XMS_ITS | Encounter Summary ---
:1970 Author Organization [facility] Address [address] [place] [address] Care Team Providers Name Role Phone No Ref-Primary, Physician Primary Care Provider [phone] Encounter Details Date Type Department Care Team Description 06/14/2018 Hospital Encounter [facility] Renetta Hu MD [place] [facility] ONCOLOGY [facility] [place] HEMATOLOGY [address] [facility] [address] [place] [address] 200 [place] [address] [place] [address] (Wo rk) Social History Tobacco [...] Sign Reading Time Taken Comments Blood Pressure 131/59 06/14/2018 3:18 PM MOTORCYCLE DESIGNER Pulse 79 06/14/2018 3:18 PM MOTORCYCLE DESIGNER Temperature 35.7 ??C (96.2 ??F) 06/14/2018 3:18 PM MOTORCYCLE DESIGNER Respiratory Rate 18 06/14/2018 3:18 PM MOTORCYCLE DESIGNER Oxygen Saturation 97% 06/14/2018 3:18 PM MOTORCYCLE DESIGNER Inhaled Oxygen Concentration - - Weight 103 kg (227 lb) 06/14/2018 10:32 AM MOTORCYCLE DESIGNER Height 170.2 cm (5' 7) 06/14/2018 10:32 AM MOTORCYCLE DESIGNER Body Mass Index 35.55 06/14/2018 10:32 AM MOTORCYCLE DESIGNER documented in this encounter Medications at Time of Discharge Medication Sig Dispensed Refills Start Date End Date LORAZEPAM PO Take 0.5 mg by mouth [...] 2 times daily 8.6-50 MG per tablet ALLOPURINOL PO Take 300 mg by mouth 0 10/26/2018 daily hydroxyurea (HYDREA) 500 Take 500 mg by mouth 0 12/19/2018 MG capsule CHEMO daily documented as of this encounter Progress Notes Case Guy RN - 06/14/2018 3:30 PM CST Pt A&Ox4; a direct admit today for 1 unit of PRBC transfusion for Hgb of 7.6. Pt tolerated transfusion. Baseline shortness of breath noted (present prior to initiating transfusion), which is unchanged post transfusion. LS clear. Denies dizziness or lightheadedness. No c/o pain except for baseline headache (pt declined intervention). Emesis after eating lunch (pt states that happens all the time). Blood transfusion competed/ no reaction. Pt discharged to home with spouse. RCYCLE DESIGNER documented in this encounter Plan of Treatment Not on filedocumented as of this encounter Procedures Procedure Name Priority Date/Time Associated Diagnosis Comme nts TRANSFUSE RED BLOOD Routine 06/14/2018 12:10 PM CELL UNIT MOTORCYCLE DESIGNER BLOOD COMPONENT Routine 06/14/2018 10:52 AM Resul ts for this MOTORCYCLE DESIGNER procedure are i n the results section. ABO/RH TYPE AND STAT 06/14/2018 10:52 AM Resul ts for this SCREEN MOTORCYCLE DESIGNER procedure are i n the results section. documented in this encounter Results Transfuse red blood cell unit (06/14/2018 5:08 PM MOTORCYCLE DESIGNER) Edin Hu MD IP NURSING BLOOD ADMINISTRAT ON Transfuse red blood cell unit (06/14/2018 5:08 PM MOTORCYCLE DESIGNER) Edin Hu MD IP NURSING BLOOD ADMINISTRAT ON Blood component (06/14/2018 10:52 AM MOTORCYCLE DESIGNER) [facility] Method Time Signature Unit Number [id number] 06/14/2018 [place] 11:49 AM [facility] Blood Red Blood 06/14/2018 [place] Component Cells 11:49 AM [facility] Reduced Division 00 06/14/2018 [facility] Number 11:49 AM [facility] Status of Released to 06/14/2018 [facility] Unit care unit 11:55 PM [facility] Blood Product [id number] 06/14/2018 [facility] Code 11:49 AM [facility] Unit Status ISS [facility] Specimen Anatomical Collection Method Collection Time Receive d Time (Source) Location / / Volume Laterality 06/14/2018 10:52 06/14/2018 AM MOTORCYCLE DESIGNER 11:06 AM MOTORCYCLE DESIGNER Edin Hu MD LABORATORY Performing Organization Address City/State/ZIP Code Phon e Number M [facility] [address] [facility] [place] [address] [facility] [address] [place] [address], [facility] [phone] ABO/Rh type and screen (06/14/2018 10:52 AM MOTORCYCLE DESIGNER) [facility] Method Time Signature Units Ordered 1 06/14/2018 [place] 11:27 AM [facility] ABO A 06/14/2018 [facility] 11:45 AM [facility] RH(D) Pos [facility] Antibody Neg 06/14/2018 [facility] Screen 11:45 AM [facility] Test Valid [place] 06/14/2018 [facility] Only At [facility] 11:27 AM [facility] Specimen 06/17/2018 06/14/2018 [place] Expires 11:27 AM [facility] Crossmatch Red Blood 06/14/2018 [place] Cells 11:27 AM [facility] Specimen Anatomical Collection Method Collection Time Receive d Time (Source) Location / / Volume Laterality Blood specimen 06/14/2018 10:52 8 (specimen) AM MOTORCYCLE DESIGNER 11:06 AM MOTORCYCLE DESIGNER Edin Hu MD LAB - BLOOD BANK TEST ORDER Performing Organization Address City/State/ZIP Code Phon e Number M [facility] [address] [address] [facility] [address] [place] [address], [phone] documented in this encounter Visit Diagnoses Not on filedocumented in this encounter Care Teams Occupational Therapy Professor Relationship Specialty Start Date End Date No Ref-Primary, Physician PCP - General 09/30/17 documented as of this encounter
--- OUTSIDE RECORDS SUMMARY | 2022-05-02 12:21 | XMS_ITS | Encounter Summary ---
:1970 Author Organization [facility] Address [address] [place] [address] Care Team Providers Name Role Phone No Ref-Primary, Physician Primary Care Provider Reason for Visit Reason Onset Date Comments Referral 08/07/2018 Via referral from [place] [facility] Encounter Details Date Type Department Care Team Description 08/07/2018 Telephone [facility] Blood and None Referral (Via referral from [facility] [place] [facility]) [place] [phone] Social History Tobacco Use Types Packs/Day [...] Notes Telephone Encounter - Citlali Dixon - 08/07/2018 9:48 AM CST ONCOLOGY INTAKE: Records Information APPT INFORMATION: Referring provider: Edin Hu Referring provider???s clinic: [facility] Reason for visit/diagnosis: Myelofibrosis Were the records received with the referral (via Rightfax)? No Has patient been seen for any external appt for this diagnosis (enter clinic/location)? Please confirm with PT upon Scheduling UTION CONTROL TECHNICIAN documented in 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 Care Teams Welder Production Line Gas Relationship Specialty Start Date End Date No Ref-Primary, Physician PCP - General 09/30/17 documented as of this encounter
--- OUTSIDE RECORDS SUMMARY | 2022-05-02 12:21 | XMS_ITS | Encounter Summary ---
:1970 Author Organization [facility] Address [address] [place] [address] Care Team Providers Name Role Phone No Ref-Primary, Physician Primary Care Provider [phone] Encounter Details Date Type Department Care Team Description 08/24/2018 Infusion Therapy [facility] Edin Hu Myel oproliferative Visit Cancer Center MD disorder (H) (Primary Dx) [facility] ONCOLOGY [facility] Medical Ctr HEMATOLOGY [address] [place] [address] [phone] Social History Tobacco Use Types Packs/Day Years Used Date Smoking Tobacco: Former Cigarettes Quit : 09/27/2012 Smokeless Tobacco: Never Comments: quit September 27, 2012 Alcohol Use Standard Drinks/Week Comments Yes 0 (1 standard drink = 0.6 oz pure alcoho l) 1 drink per week Sex Assigned at Date Recorded Not on file documented as of this encounter Progress Notes Izabella Pendleton RN - 08/24/2018 9:30 AM CST Erroneous encounter - patient cancelled appointment. ITY AUDIT REPRESENTATIVE documented in this encounter Plan of Treatment Not on filedocumented as of this encounter Results ABO/Rh type and screen (08/24/2018 12:25 PM QUALITY AUDIT REPRESENTATIVE) [facility] Method Time Signature ABO A 08/24/2018 [place] 1:09 PM QUALITY AUDIT REPRESENTATIVE [facility] RH(D) Pos [facility] Antibody Neg 08/24/2018 [place] Screen 1:09 PM QUALITY AUDIT REPRESENTATIVE [facility] Test Valid [place] 08/24/2018 [place] Only At [facility] 12:52 PM QUALITY AUDIT REPRESENTATIVE [facility] Specimen 08/27/2018 08/24/2018 [place] Expires 12:52 PM QUALITY AUDIT REPRESENTATIVE [facility] Specimen Anatomical Collection Method Collection Time Receive d Time (Source) Location / / Volume Laterality Blood specimen 08/24/2018 12:25 9 (specimen) PM QUALITY AUDIT REPRESENTATIVE 12:30 PM QUALITY AUDIT REPRESENTATIVE Edin Hu MD LAB - BLOOD BANK TEST ORDER Performing Organization Address City/State/ZIP Code Phon e Number M [facility] [address] [phone] [facility] [address] [address], [facility] [phone] documented in this encounter Visit Diagnoses Diagnosis 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
--- OUTSIDE RECORDS SUMMARY | 2022-05-02 12:21 | XMS_ITS | Encounter Summary ---
:1970 Author Organization [facility] Address [address] [place] [address]. [place] [address] Care Team Providers Name Role Phone No Ref-Primary, Physician Primary Care Provider [phone] Reason for Visit Reason Comments Infusion 2 units PRBCs Encounter Details Date Type Department Care Team Description 05/19/2018 Infusion Therapy [facility] Edin Hu, Melania oproliferative Visit Cancer Center MD disorder (H) (Primary Dx) [place] [facility]COLOGY [facility] Medical Ctr HEMATOLOGY [facility] [address] [place] [phone] Social History Tobacco Use Types Packs/Day Years [...] Sign Reading Time Taken Comments Blood Pressure 132/73 05/19/2018 3:49 PM BOWLING FLOOR MANAGER Pulse 79 05/19/2018 3:49 PM BOWLING FLOOR MANAGER Temperature 36.8 ??C (98.3 ??F) 05/19/2018 3:49 PM BOWLING FLOOR MANAGER Respiratory Rate 18 05/19/2018 3:49 PM BOWLING FLOOR MANAGER Oxygen Saturation 98% 05/19/2018 10:35 AM BOWLING FLOOR MANAGER Inhaled Oxygen Concentration - - Weight - - Height - - Body Mass Index - - documented in this encounter Progress Notes Marie Minor RN - 05/19/2018 10:00 AM CST Infusion Nursing Note: Jennifer Dobbs presents today for 2 units PRBCs. Patient seen by provider today: No Assistant Professor Of Biochemistry present during visit today: Not Applicable. Note: N/A. Intravenous Access: Peripheral IV placed. Treatment Conditions: HgB 6.8 from [place] [facility]. Post Infusion Assessment: Patient tolerated infusion without [...] stable condition accompanied by: . Departure Mode: Wheelchair. Marie Minor RN ING FLOOR MANAGER documented in this encounter Plan of Treatment Not on filedocumented as of this encounter Procedures Procedure Name Priority Date/Time Associated Diagnosis Comme nts TRANSFUSE RED Routine 05/19/2018 1:45 Myeloproliferative BLOOD CELL UNIT PM BOWLING FLOOR MANAGER disorder (H) TRANSFUSE RED Routine 05/19/2018 11:45 Myeloproliferative BLOOD CELL UNIT AM BOWLING FLOOR MANAGER disorder (H) BLOOD COMPONENT Routine 05/19/2018 10:30 Myeloproliferative Re sults for this AM BOWLING FLOOR MANAGER disorder (H) procedure are i n the results section. BLOOD COMPONENT Routine 05/19/2018 10:30 Myeloproliferative Re sults for this AM BOWLING FLOOR MANAGER disorder (H) procedure are i n the results section. ABO/RH TYPE AND STAT 05/19/2018 10:30 Myeloproliferative Re sults for this SCREEN AM BOWLING FLOOR MANAGER disorder (H) procedure are i n the results section. documented in this encounter Results Transfuse red blood cell unit (05/19/2018 3:50 PM BOWLING FLOOR MANAGER) India Sharp ROLL LINE OPERATOR IP NURSING BLOOD ADMINISTRAT ON Transfuse red blood cell unit (05/19/2018 3:50 PM BOWLING FLOOR MANAGER) India Sharp ROLL LINE OPERATOR IP NURSING BLOOD ADMINISTRAT ON Transfuse red blood cell unit (05/19/2018 1:46 PM BOWLING FLOOR MANAGER) India Sharp NP IP NURSING BLOOD ADMINISTRAT ON Blood component (05/19/2018 10:30 AM BOWLING FLOOR MANAGER) [facility] [employer] Method Time Signature Unit Number [id number] 05/19/2018 [facility] 11:[address] [facility] Blood Red Blood 05/19/2018 [facility] Component Cells 11:14 AM [facility] Reduced Division 00 05/19/2018 [facility] Number 11:[address] [facility] Status of Released to 05/19/2018 [place] Unit care unit 11:[address] [facility] Blood Product [id number] 05/19/2018 [facility] Code 11:[address] [facility] Unit Status [facility] Specimen Anatomical Collection Method Collection Time Receive d Time (Source) Location / / Volume Laterality 05/19/2018 10:30 05/19/2018 AM BOWLING FLOOR MANAGER 10:33 AM BOWLING FLOOR MANAGER India Sharp ROLL LINE OPERATOR LABORATORY Performing Organization Address City/State/ZIP Code Phon e Number M [facility] [address] [address] [phone] [facility] [address] [place] [address], [place] [phone] Blood component (05/19/2018 10:30 AM BOWLING FLOOR MANAGER) [facility] [employer] Method Time Signature Unit Number [id number] 05/19/2018 [facility] 11:[address] [facility] Blood Red Blood 05/19/2018 [facility] Component Cells 11:14 AM [facility] Reduced Division 00 05/19/2018 [facility] Number 11:[address] [facility] Status of Released to 05/19/2018 [place] Unit care unit 11:[address] [facility] Blood Product [id number] 05/19/2018 [facility] Code 11:[address] [facility] Unit Status [facility] Specimen Anatomical Collection Method Collection Time Receive d Time (Source) Location / / Volume Laterality 05/19/2018 10:30 05/19/2018 AM BOWLING FLOOR MANAGER 10:33 AM BOWLING FLOOR MANAGER India Sharp ROLL LINE OPERATOR LABORATORY Performing Organization Address City/State/ZIP Code Phon e Number M [facility] [address] [address] [facility] [address] [address], [place] [phone] ABO/Rh type and screen (05/19/2018 10:30 AM BOWLING FLOOR MANAGER) [facility] Method Time Signature Units Ordered 2 05/19/2018 [place] 10:[address] [facility] ABO A 05/19/2018 [place] 11:13 AM BOWLING FLOOR MANAGER [facility] RH(D) Pos [facility] Antibody Neg 05/19/2018 [place] Screen 11:[address] [facility] Test Valid [place] 05/19/2018 [place] Only At [facility] 10:38 AM [facility] Specimen 05/22/2018 05/19/2018 [place] Expires 10:[address] [facility] Crossmatch Red Blood 05/19/2018 [place] Cells 10:[address] 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
--- OUTSIDE RECORDS SUMMARY | 2022-05-02 12:21 | XMS_ITS | Encounter Summary ---
:1970 Author Organization [facility] Address [address] [place] [address]. [place] [address] Care Team Providers Name Role Phone No Ref-Primary, Physician Primary Care Provider Encounter Details Date Type Department Care Team Description 05/19/2018 Hospital Encounter [facility] India Sharp, [facility] Laboratory HEEL REDUCER [address] [facility] [place] [address] HEMATOLOGY [phone] [facility] [address] [place] [address] (Wo rk) Social History Tobacco Use Types [...] on filedocumented in this encounter Care Teams Roll Machine Operator Relationship Specialty Start Date End Date No Ref-Primary, Physician PCP - General 09/30/17 documented as of this encounter
--- OUTSIDE RECORDS SUMMARY | 2022-05-02 12:21 | XMS_ITS | Encounter Summary ---
:1970 Author Organization [facility] Address [address] [place] [address] Care Team Providers Name Role Phone No Ref-Primary, Physician Primary Care Provider [phone] Encounter Details Date Type Department Care Team Description 08/24/2018 Hospital Encounter [facility] Renetta Hu MD [facility] Laboratory [place] [facility] [address] HEMATOLOGY [place], [place] [address] [facility] [phone] [address] [place], [place] [address] (Wo rk) Social History [...] on filedocumented in this encounter Care Teams Residential Roofer Relationship Specialty Start Date End Date No Ref-Primary, Physician PCP - General 09/30/17 documented as of this encounter
--- OUTSIDE RECORDS SUMMARY | 2022-05-02 12:21 | XMS_ITS | Encounter Summary ---
:1970 Author Organization [facility] Address [address] [place] [address] Care Team Providers Name Role Phone No Ref-Primary, Physician Primary Care Provider Encounter Details Date Type Department Care Team Description 06/29/2018 Travel Social History Tobacco Use Types Packs/Day [...] on filedocumented in this encounter Care Teams Phlebotomist Supervisor/Instructor Relationship Specialty Start Date End Date No Ref-Primary, Physician PCP - General 09/30/17 documented as of this encounter
--- OUTSIDE RECORDS SUMMARY | 2022-05-02 12:21 | XMS_ITS | Encounter Summary ---
:1970 Author Organization [facility] Address [address] [place] [address] Care Team Providers Name Role Phone No Ref-Primary, Physician Primary Care Provider [phone] Reason for Visit Reason Onset Date Comments Referral 08/28/2018 Via fax from [place] [facility] Encounter Details Date Type Department Care Team Description 08/28/2018 Documentation Only [facility] None Refe rral (Via fax from [facility] [place] [facility]) [address] [place] [phone] Social History Tobacco Use Types Packs/Day Years Used Date Smoking Tobacco: Former Cigarettes Quit : 09/27/2012 Smokeless Tobacco: Never Comments: quit September 27, 2012 Alcohol Use Standard Drinks/Week Comments Yes 0 (1 standard drink = 0.6 oz pure alcoho l) 1 drink per week Sex Assigned at Date Recorded Not on file documented as of this encounter Progress Notes Citlali Dixon - 08/28/2018 1:36 PM CST Received fax from [place] [facility]; looks as if she is a return PT, [facility] NIC CHEMISTRY PROFESSOR Citlali Dixon - 08/28/2018 1:36 PM CST Received reply fax stating PT has only had treatment, but no provider yet, so it looks like they need the 2nd opinion from [place] [facility]. Message sent to Vin[facility] to determine if PT should be scheduled by our BMT or sent directly to the [facility] Clinic. NIC CHEMISTRY PROFESSOR documented in 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 Care Teams Visual Merchandise Manager Relationship Specialty Start Date End Date No Ref-Primary, Physician PCP - General 09/30/17 documented as of this encounter
--- OUTSIDE RECORDS SUMMARY | 2022-05-02 12:21 | XMS_ITS | Encounter Summary ---
:1970 Author Organization [place] Address [address] [place] [address]. [place] [address] Care Team Providers Name Role Phone No Ref-Primary, Physician Primary Care Provider [phone] Reason for Visit Reason Comments Infusion Encounter Details Date Type Department Care Team Description 08/02/2018 Infusion Therapy [facility] No Myelop roliferative Visit Cancer Center Levels Ref-Primary, disorder (H) (Primary Dx) [facility] Physician [facility] [phone] [address] (Fax) [address] [place] [address] Social History Tobacco Use Types Packs/Day [...] Sign Reading Time Taken Comments Blood Pressure 124/80 08/02/2018 12:39 PM TAIL END RIDER Pulse 75 08/02/2018 12:39 PM TAIL END RIDER Temperature 36.7 ??C (98.1 ??F) 08/02/2018 12:39 PM TAIL END RIDER Respiratory Rate 16 08/02/2018 12:39 PM TAIL END RIDER Oxygen Saturation 100% 08/02/2018 12:39 PM TAIL END RIDER Inhaled Oxygen Concentration - - Weight - - Height - - Body Mass Index - - documented in this encounter Progress Notes Rolan Bennett RN - 08/02/2018 8:30 AM CST Infusion Nursing Note: Jennifer Dobbs presents today for prbc. Patient seen by provider today: No Telephone Cleaner present during visit today: Not Applicable. Note: N/A. Intravenous Access: Labs drawn without difficulty. Peripheral IV placed. Treatment Conditions: Lab Results Component Value Date HGB 7.5 12/27/2015 Lab Results Component Value Date WBC 4.0 12/13/2015 Lab Results Component Value Date ANEU 3.1 12/13/2015 Lab Results Component Value Date PLT 137 12/13/2015 Blood transfusion consent signed 08/02/18 Post Infusion Assessment: Patient tolerated infusion without incident. Site patent and intact, free from redness, edema or discomfort. No evidence of extravasations. Access discontinued per protocol. Discharge Plan: AVS to patient via MYCHART. Patient will return prn for next appointment. Patient discharged in stable condition accompanied by: . Departure Mode: Ambulatory. Rolan Bennett RN END RIDER documented in this encounter Plan of Treatment Not on filedocumented as of this encounter Procedures Procedure Name Priority Date/Time Associated Diagnosis Comme nts TRANSFUSE RED Routine 08/02/2018 11:14 Myeloproliferative BLOOD CELL UNIT AM TAIL END RIDER disorder (H) BLOOD COMPONENT Routine 08/02/2018 8:50 Myeloproliferative Res ults for this AM TAIL END RIDER disorder (H) procedure are i n the results section. BLOOD COMPONENT Routine 08/02/2018 8:50 Myeloproliferative Res ults for this AM TAIL END RIDER disorder (H) procedure are i n the results section. ABO/RH TYPE AND STAT 08/02/2018 8:50 Myeloproliferative Res ults for this SCREEN AM TAIL END RIDER disorder (H) procedure are i n the results section. documented in this encounter Results Transfuse red blood cell unit (08/02/2018 12:46 PM TAIL END RIDER) Edin Hu MD IP NURSING BLOOD ADMINISTRAT ON Transfuse red blood cell unit (08/02/2018 11:15 AM TAIL END RIDER) Eidn Hu MD IP NURSING BLOOD ADMINISTRAT ON Blood component (08/02/2018 8:50 AM TAIL END RIDER) [facility] Method Time Signature Unit Number [id number] 08/02/2018 [facility] 9:33 AM TAIL END RIDER [facility] Blood Red Blood 08/02/2018 [facility] Component Cells 9:33 AM [facility] Reduced Division 00 08/02/2018 [facility] Number 9:33 AM [facility] Status of Released to 08/02/2018 [facility] Unit care unit 11:55 PM [facility] Blood Product [id number] 08/02/2018 [facility] Code 9:33 AM [facility] Unit Status ISS [facility] Specimen Anatomical Collection Method Collection Time Receive d Time (Source) Location / / Volume Laterality 08/02/2018 8:50 AM 9 8:51 TAIL END RIDER AM TAIL END RIDER Edin Hu MD LABORATORY Performing Organization Address City/State/ZIP Code Phon e Number M [facility] [address] [place] [address] [employer] [address] [place] [address], [place] [phone] Blood component (08/02/2018 8:50 AM TAIL END RIDER) [facility] Signature Unit Number [id number] 08/02/2018 [facility] 9:33 AM [facility] Blood Red Blood 08/02/2018 [facility] Component Cells 9:33 AM [facility] Reduced Division 00 08/02/2018 [facility] Number 9:33 AM [facility] Status of Released to 08/02/2018 [facility] Unit care unit 11:55 PM [facility] Blood Product [id number] 08/02/2018 [facility] Code 9:33 AM [facility] Unit Status ISS [facility] Specimen Anatomical Collection Method Collection Time Receive d Time (Source) Location / / Volume Laterality 08/02/2018 8:50 AM 9 8:51 TAIL END RIDER AM TAIL END RIDER Edin Hu MD LABORATORY Performing Organization Address City/State/ZIP Code Phon e Number M [facility] [address] [place] [address] [employer] [address] [place] [address], [place] [phone] ABO/Rh type and screen (08/02/2018 8:50 AM TAIL END RIDER) Patholo gist Method Time Signature Units Ordered 2 08/02/2018 [facility] 9:00 AM [facility] ABO A 08/02/2018 [facility] 9:32 AM [facility] RH(D) Pos [facility] Antibody Neg 08/02/2018 [facility] Screen 9:32 AM [facility] Test Valid [place] 08/02/2018 [facility] Only At [facility] 9:00 AM [facility] Specimen 08/05/2018 08/02/2018 [facility] Expires 9:00 AM [facility] Crossmatch Red Blood 08/02/2018 [facility] Cells 9:00 AM [facility] Specimen Anatomical Collection Method Collection Time Receive d Time (Source) Location / / Volume Laterality Blood specimen 08/02/2018 8:50 AM 019 8:51 (specimen) TAIL END RIDER AM TAIL END RIDER Edin Hu MD LAB - BLOOD BANK TEST ORDER Performing Organization Address City/State/ZIP Code Phon e Number M [facility] [address] [address] [employer] [address] [address], [facility] [phone] documented in this encounter Visit Diagnoses Diagnosis 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
--- OUTSIDE RECORDS SUMMARY | 2022-05-02 12:21 | XMS_ITS | Encounter Summary ---
:1970 Author Organization [facility] Address [address] [place] [address] Care Team Providers Name Role Phone No Ref-Primary, Physician Primary Care Provider [phone] Reason for Visit Reason Comments Social Work Services Encounter Details Date Type Department Care Team Description 06/29/2018 [facility] Social Shonda Wor Services [facility] ANTONIA Kang Visit [place] [phone] [facility] DEONDRE RASMUSSEN (Work) [address] [place] [address] Social History Tobacco Use Types Packs/Day Years Used Date Smoking Tobacco: Former Cigarettes Quit : 09/27/2012 Smokeless Tobacco: Never Comments: quit September 27, 2012 Alcohol Use Standard Drinks/Week Comments Yes 0 (1 standard drink = 0.6 oz pure alcoho l) 1 drink per week Sex Assigned at Date Recorded Not on file documented as of this encounter Progress Notes Pearl Merchant LICSW - 06/29/2018 11:59 PM CST Social Work Progress Note Data/Intervention: Patient Name: Jennifer Dobbs /Age: 9 1970 (48 year old) Reason for Follow-Up: Jennifer is a 48-year-old woman with a diagnosis of myeloproliferative disorder who receives blood transfusions every 2 weeks and is followed by [facility]. This clinician received referral today due to insurance concerns. Intervention: This clinician met with pt today with goal of introducing psychosocial services and support. Jennifer comes to clinic with Gian and endorses that she has not had medical insurance since 2017 as makes too much money to be eligible for assistance from [place]. Jennifer reported that she worked with friend who is a covered buckle assembler to establish coverage for July 2018. Provided safe place for Jennifer to express significant psychosocial distress regarding ways in which diagnosis has impacted life, Jennifer reports that she discontinued work at [employer] as she is so fatigued that she is unable to engage in basiccares. Jennifer acknowledges that family is overdue on multiple medical bills, and continues to [facility] of which she is receiving legal assistance. Family acknowledged feeling very discouragedabout what might be available for assistance with ongoing concern. Oriented family to oncology SW support, and provided resource support for what may be available in community for assistance. Provided active listening and emotional support surrounding understandably distressing adjustment to diagnosis and treatment. Resources Provided: Leukemia Lymphoma Society [facility] Billing Department [facility] SW contact information, [facility] SW contact information Community Resource Guide [facility]: Financial Help, Medical Insurance, Transportation Plan: 1) This clinician to submit [employer] application to [employer] on family's behalf. Per pt, she has received [employer] General Willie in past, which is awarded once per lifetime. 2) Pt knows to reach out to SW in the case of psychosocial support or need. This clinician to notifyOnc SW at [facility] of pt's ongoing need Please call or page if needs or concerns arise. ENMA Malone, ANTONIA Direct Pager: [phone] F PHYSICAL THERAPY ASSISTANT documented in this encounter Plan of Treatment Not on filedocumented as of this encounter Visit Diagnoses Diagnosis Counseling NOS(V65.40) - Primary Counseling NOS documented in this encounter Care Teams Absorption And Adsorption Engineer Relationship Specialty Start Date End Date No Ref-Primary, Physician PCP - General 09/30/17 documented as of this encounter
--- OUTSIDE RECORDS SUMMARY | 2022-05-02 12:21 | XMS_ITS | Encounter Summary ---
:1970 Author Organization [place] Address [address] [place] [address] Care Team Providers Name Role Phone No Ref-Primary, Physician Primary Care Provider Encounter Details Date Type Department Care Team Description 08/02/2018 Hospital Encounter [facility] Renetta Hu MD [facility] [address] [facility] [place] [address] [address] [facility] [phone] [address] [place], [place] [address] (Wo rk) Social History [...] on filedocumented in this encounter Care Teams Ux Ui Designer Relationship Specialty Start Date End Date No Ref-Primary, Physician PCP - General 09/30/17 documented as of this encounter
--- OUTSIDE RECORDS SUMMARY | 2022-05-02 12:21 | XMS_ITS | Encounter Summary ---
:1970 Author Organization [place] Address [address] [facility] [place] [address] Care Team Providers Name Role Phone No Ref-Primary, Physician Primary Care Provider [phone] Encounter Details Date Type Department Care Team Description 08/21/2018 Medical Correspondence [facility] Scan, CONSULT ORDER Health Info Mgmt Non-Provider [facility] [address] [place] [address] Social History Tobacco Use Types Packs/Day [...] on filedocumented in this encounter Care Teams Application Architect Manager Relationship Specialty Start Date End Date No Ref-Primary, Physician PCP - General 09/30/17 documented as of this encounter
--- OUTSIDE RECORDS SUMMARY | 2022-05-02 12:21 | XMS_ITS | Encounter Summary ---
:1970 Author Organization [facility] Address [address] [place] [address] Care Team Providers Name Role Phone No Ref-Primary, Physician Primary Care Provider Encounter Details Date Type Department Care Team Description 08/02/2018 Travel Social History Tobacco Use Types Packs/Day [...] on filedocumented in this encounter Care Teams Oven Heater Helper Relationship Specialty Start Date End Date No Ref-Primary, Physician PCP - General 09/30/17 documented as of this encounter
--- OUTSIDE RECORDS SUMMARY | 2022-05-02 12:21 | XMS_ITS | Encounter Summary ---
:1970 Author Organization [facility] Address [address] [place] [address] Care Team Providers Name Role Phone No Ref-Primary, Physician Primary Care Provider [phone] Reason for Visit Auth/Cert Specialty Diagnoses / Procedures Referred By Contact Refer red To Contact Med Surg Diagnoses Low hemoglobin Sh Short Stay [address] [place] [address] Phone: Referral ID Status Reason Start Date Expiration Date Visits Requ ested Visits Authorized 04/16/2018 04/16/2019 Encounter Details Date Type Department Care Team Description 04/16/2018 Hospital Encounter [facility] Renetta Hu MD [place] ONCOLOGY [facility] HEMATOLOG[facility] [address] [address] [place] [address] (Wo rk) Social History Tobacco [...] Sign Reading Time Taken Comments Blood Pressure 141/58 04/16/2018 7:30 PM CDT Pulse 79 04/16/2018 4:40 PM CDT Temperature 36.7 ??C (98 ??F) 04/16/2018 7:30 PM CDT Respiratory Rate 18 04/16/2018 7:30 PM CDT Oxygen Saturation 99% 04/16/2018 7:30 PM CDT Inhaled Oxygen Concentration - - Weight 98.5 kg (217 lb 3.2 oz) 04/16/2018 1:18 PM CDT Height 170.2 cm (5' 7) 04/16/2018 1:18 PM CDT Body Mass Index 34.02 04/16/2018 1:18 PM CDT documented in this encounter Medications at [...] documented as of this encounter Progress Notes Jose Nguyen RN - 04/16/2018 7:36 PM CDT Pt transfusion done at this time. No s/s of reaction. Denies any needs at this time. Will d/c documented in this encounter Miscellaneous Notes Plan of Care - Oumou Zapata RN - 04/16/2018 7:53 PM CDT Problem: Patient Care Overview Goal: Plan of Care/Patient Progress Review Outcome: Adequate for Discharge Date Met: 04/16/18 2nd PRBC transfusion done. VSS on RA. Denies pain. Denies chest pain. No s&s of rxn noted. Up independently in room. Pt discharged to home with sister at 1950. Discharge instructions eviewed with pt, questions answered. Send all the personal belongings with pt. Pt left the floor with sister at 1950. Plan of Care - Edna Martino RN - 04/16/2018 7:06 PM CDT Problem: Patient Care Overview Goal: Plan of Care/Patient Progress Review Outcome: No Change A&Ox4. Up independently. VSS on RA. Denies pain. Reports increasingly SOB, primary MD aware per pt. Hgb 6.5, plan to receive 2 units PRBCs. 2nd unit currently transfusing, then to dc. documented in this encounter Plan of Treatment Pending Results Name Type Priority Associated Date/Time Diagnoses Transfuse red blood Nursing Transfusion Routine 1 5:09 PM cell unit CDT documented as of this encounter Procedures Procedure Name Priority Date/Time Associated Diagnosis Comme nts BLOOD COMPONENT Routine 04/16/2018 1:28 PM Result s for this CDT procedure are i n the results section. BLOOD COMPONENT Routine 04/16/2018 1:28 PM Result s for this CDT procedure are i n the results section. ABO/RH TYPE AND STAT 04/16/2018 1:28 PM Result s for this SCREEN CDT procedure are i n the results section. documented in this encounter Results Transfuse red blood cell unit (04/16/2018 5:14 PM CDT) Edin Hu MD IP NURSING BLOOD ADMINISTRAT ON Blood component (04/16/2018 1:28 PM CDT) [facility] Method Time Signature Unit Number [id number] 04/16/2018 [place] 2:21 PM CDT [facility] Blood Red Blood 04/16/2018 [facility] Component Cells 2:21 PM CDT [facility] Reduced Division 00 04/16/2018 [place] Number 2:21 PM CDT [facility] Status of Released to 04/16/2018 [facility] Unit care unit 11:55 PM CDT [facility] Blood Product [id number] 04/16/2018 [place] Code 2:21 PM CDT [facility] Unit Status ISS [facility] Specimen Anatomical Collection Method Collection Time Receive d Time (Source) Location / / Volume Laterality 04/16/2018 1:28 PM 8 1:35 CDT PM CDT Edin Hu MD LABORATORY Performing Organization Address City/State/ZIP Code Phon e Number M [facility] [address] [place] [address] [facility] [address] [place] [address], [place] [phone] Blood component (04/16/2018 1:28 PM CDT) [facility] [employer] Method Time Signature Unit Number [id number] 04/16/2018 [facility] 2:21 PM CDT [facility] Blood Red Blood 04/16/2018 [facility] Component Cells 2:21 PM CDT [facility] Reduced Division 00 04/16/2018 [facility] Number 2:21 PM CDT [facility] Status of Released to 04/16/2018 [facility] Unit care unit 11:55 PM CDT [facility] Blood Product [id number] 04/16/2018 [facility] Code 2:21 PM CDT [facility] Unit Status ISS [facility] Specimen Anatomical Collection Method Collection Time Receive d Time (Source) Location / / Volume Laterality 04/16/2018 1:28 PM 8 1:35 CDT PM CDT Edin Hu MD LABORATORY Performing Organization Address City/State/ZIP Code Phon e Number M [facility] [address] [place] [address] [facility] [address] [place] [address], [place] [phone] ABO/Rh type and screen (04/16/2018 1:28 PM CDT) [email or web address] Method Time Signature Units Ordered 2 04/16/2018 [facility] 1:37 PM CDT [facility] ABO A 04/16/2018 [facility] 2:17 PM CDT [facility] RH(D) Pos [facility] Antibody Neg 04/16/2018 [facility] Screen 2:17 PM CDT [facility] Test Valid [place] 04/16/2018 [facility] Only At [facility] 1:37 PM CDT [facility] Specimen 04/19/2018 04/16/2018 [facility] Expires 1:37 PM CDT [facility] Crossmatch Red Blood 04/16/2018 [facility] Cells 1:37 PM CDT [facility] Specimen Anatomical Collection Method Collection Time Receive d Time (Source) Location / / Volume Laterality Blood specimen 04/16/2018 1:28 PM 018 1:35 (specimen) CDT PM CDT Edin Hu MD LAB - BLOOD BANK TEST ORDER Performing Organization Address City/State/ZIP Code Phon e Number M [facility] [address] [address] [phone] [facility] [address] [address], [place] [phone] documented in this encounter Visit Diagnoses Not on filedocumented in this encounter Administered Medications Inactive Administered Medications - up to 3 most recent administrations Medication Order MAR Action Action Date Dose Rate Site 0.9% sodium chloride BOLUS Intravenous, 1-250 mL, EVERY 1 HOUR PRN, To prime infusion tubing AND flush blood through tubing POST blood component administration., S tarting on Aruna 04/16/18 at 1312, IF blood component ordered, nurse to administer [...] are shown in CDT. PRN Medication Order 04/14/2018 04/15/2018 04/16/2018 0.9% sodium chloride BOLUS Intravenous, 1-250 mL, EVERY 1 HOUR PRN, To prime infusion tubing AND flush blood through tubing POST blood component administration., Starting Aruna 04/16/18 at 1312, IF blood component ordered, nurse to administer rate and volume of fluid pre- blood component administration to PRIME tubing AND to FLUSH blood through tubing post blood component administration UNTIL tubing is clear of visible blood. Use M INIMUM volume necessary for pre and post blood component administration. IF duplicate order nurse to discontinue the duplicate order. documented in this encounter Care Teams Electrolysis Operator Relationship Specialty Start Date End Date No Ref-Primary, Physician PCP - General 09/30/17 documented as of this encounter
--- OUTSIDE RECORDS SUMMARY | 2022-05-02 12:21 | XMS_ITS | Encounter Summary ---
:1970 Author Organization [place] Address [address] [place] [address] Care Team Providers Name Role Phone No Ref-Primary, Physician Primary Care Provider Encounter Details Date Type Department Care Team Description 08/24/2018 Travel Social History Tobacco Use Types Packs/Day [...] on filedocumented in this encounter Care Teams Icu Staff Nurse Relationship Specialty Start Date End Date No Ref-Primary, Physician PCP - General 09/30/17 documented as of this encounter
--- OUTSIDE RECORDS SUMMARY | 2022-05-02 12:21 | XMS_ITS | Encounter Summary ---
:1970 Author Organization [place] Address [address] [place] [address] Care Team Providers Name Role Phone No Ref-Primary, Physician Primary Care Provider Encounter Details Date Type Department Care Team Description 09/16/2018 Travel Social History Tobacco Use Types Packs/Day [...] on filedocumented in this encounter Care Teams Vessel Liner Relationship Specialty Start Date End Date No Ref-Primary, Physician PCP - General 09/30/17 documented as of this encounter
--- OUTSIDE RECORDS SUMMARY | 2022-05-02 12:21 | XMS_ITS | Encounter Summary ---
:1970 Author Organization [place] Address [address] [place] [address] Care Team Providers Name Role Phone No Ref-Primary, Physician Primary Care Provider [phone] Reason for Visit Reason Comments Blood Transfusion 2 u nPRBC Encounter Details Date Type Department Care Team Description 02/04/2018 Infusion Therapy [facility] Edin Hu, Melania oproliferative Visit Cancer Center MD disorder (H) (Primary Dx) [facility] ONCOLOGY [facility] Medical Ctr HEMATOLOGY [address] [place] [id number] [phone] Social History Tobacco Use Types Packs/Day Years [...] Sign Reading Time Taken Comments Blood Pressure 124/76 02/04/2018 2:33 PM CDT Pulse 72 02/04/2018 2:33 PM CDT Temperature 36.6 ??C (97.9 ??F) 02/04/2018 2:33 PM CDT Respiratory Rate 18 02/04/2018 2:33 PM CDT Oxygen Saturation 99% 02/04/2018 2:33 PM CDT Inhaled Oxygen Concentration - - Weight - - Height - - Body Mass Index - - documented in this encounter Progress Notes Monica Willard, [place] - 02/04/2018 11:00 AM CDT Infusion Nursing Note: Jennifer Dobbs presents today for 2 units PRBC. Patient seen by provider today: No Adobe Architect present during visit today: Not Applicable. Note: HGB 7.5. Intravenous Access: Peripheral IV placed. Treatment Conditions: Blood transfusion consent signed 02/04/18. Post Infusion Assessment: Patient tolerated infusion without incident. Blood return noted pre and post infusion. Site patent and intact, free from redness, edema or discomfort. Access discontinued per protocol. Discharge Plan: Discharge instructions reviewed with: Patient. Patient and/or family verbalized understanding of discharge instructions and all questions answered. Patient discharged in stable condition accompanied by: self and . Departure Mode: Ambulatory. Monica Willard RN documented in this encounter Plan of Treatment Not on filedocumented as of this encounter Procedures Procedure Name Priority Date/Time Associated Diagnosis Comme nts TRANSFUSE RED BLOOD Routine 02/04/2018 1:05 PM Myeloproliferat otoniel disorder CELL UNIT CDT (H) TRANSFUSE RED BLOOD Routine 02/04/2018 11:29 AM Myeloprolifera tive disorder CELL UNIT CDT (H) documented in this encounter Results Transfuse red blood cell unit (02/04/2018 3:00 PM CDT) Edin Hu MD IP NURSING BLOOD ADMINISTRAT ON Transfuse red blood cell unit (02/04/2018 3:00 PM CDT) Edin Hu MD IP NURSING BLOOD ADMINISTRAT ON Transfuse red blood cell unit (02/04/2018 1:05 PM CDT) Edin Hu MD IP NURSING BLOOD ADMINISTRAT ON ABO/Rh type and screen (02/03/2018 5:41 PM CDT) [facility] Method Time Signature Units Ordered 2 02/06/2018 [place] 2:26 PM CDT [facility] ABO A 02/03/2018 [place] 6:51 PM CDT [facility] RH(D) Pos [facility] Antibody Neg 02/03/2018 [place] Screen 6:51 PM T [facility] Test Valid [place] 02/03/2018 [facility] Only At [facility] 6:52 PM CDT [facility]OSP[facility] Specimen 02/06/2018 02/03/[address] Expires 6:52 PM [facility] Crossmatch Red Blood 02/03/2018 [place] Cells 6:52 PM [facility] Specimen Anatomical Collection Method Collection Time Receive d Time (Source) Location / / Volume Laterality Blood specimen 02/03/2018 5:41 PM 018 5:42 (specimen) CDT PM CDT Edin Hu MD LAB - BLOOD BANK TEST ORDER Performing Organization Address City/State/ZIP Code Phon e Number M [facility] [address] [address] [facility] [address] [phone] documented in this encounter Visit Diagnoses Diagnosis 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
--- OUTSIDE RECORDS SUMMARY | 2022-05-02 12:21 | XMS_ITS | Encounter Summary ---
:1970 Author Organization [place] Address [address] [place] [address] Care Team Providers Name Role Phone No Ref-Primary, Physician Primary Care Provider Encounter Details Date Type Department Care Team Description 02/03/2018 [facility] Edin Hu, Myelopro liferative Encounter [facility] Laboratory disorder (H) [address] [place] [address] HEMATOLOGY [place], [place] [address] [address] [address] [place] [address] Social History Tobacco Use Types [...] Date LORAZEPAM PO Take 0.5 mg by 0 mouth every 6 hours as needed for [...] tablet ALLOPURINOL PO Take 300 mg by 0 2018 mouth daily hydroxyurea (HYDREA) 500 Take 500 mg by 0 12/19/2018 MG capsule CHEMO mouth daily ondansetron (ZOFRAN ODT) 4 Take 1-2 tablets 30 tablet 0 02/04/2018 MG disintegrating tablet (4-8 mg) by mouth every 8 hours as needed for nausea documented as of this encounter Plan of Treatment Not on filedocumented as of this encounter Procedures Procedure Name Priority Date/Time Associated Diagnosis Comme nts BLOOD COMPONENT Routine 02/03/2018 5:41 Myeloproliferative Res ults for this PM CDT disorder (H) procedure are i n the results section. BLOOD COMPONENT Routine 02/03/2018 5:41 Myeloproliferative Res ults for this PM CDT disorder (H) procedure are i n the results section. ABO/RH TYPE AND Routine 02/03/2018 5:41 Myeloproliferative Res ults for this SCREEN PM CDT disorder (H) procedure are i n the results section. documented in this encounter Results Blood component (02/03/2018 5:41 PM CDT) [facility] gist Method Time Signature Unit Number [id number] 02/04/2018 [facility] 12:47 PM [facility] Blood Red Blood 02/04/2018 [place] Component Cells 12:47 PM [facility] Reduced Division 00 02/04/2018 [facility] Number 12:47 PM [facility] Status of Released to 02/04/2018 [place] Unit care unit 11:52 PM [facility] Blood Product [id number] 02/04/2018 [facility] Code 12:47 PM [facility] Unit Status ISS [facility] Specimen Anatomical Collection Method Collection Time Receive d Time (Source) Location / / Volume Laterality 02/03/2018 5:41 PM 8 5:42 CDT PM CDT Edin Hu MD LABORATORY Performing Organization Address City/State/ZIP Code Phon e Number M [facility] [address] [place], [place] [address] [facility] [address] [place], [place] [address] [place] [address] Blood component (02/03/2018 5:41 PM CDT) [facility] Method Time Signature Unit Number [id number] 02/03/2018 [facility] 6:52 PM [facility] Blood Red Blood 02/03/2018 [place] Component Cells 6:52 PM [facility] [place] Reduced Division 00 02/03/2018 [facility] Number 6:52 PM [facility] Status of Released to 02/04/2018 [place] Unit care unit 11:52 PM [facility] Blood Product [id number] 02/03/2018 [facility] Code 6:52 PM [facility] Unit Status ISS [facility] Specimen Anatomical Collection Method Collection Time Receive d Time (Source) Location / / Volume Laterality 02/03/2018 5:41 PM 8 5:42 CDT PM CDT Edin Hu MD LABORATORY Performing Organization Address City/[facility]/ZIP [facility] Phon e Number M [place] [address] [address] [phone] [place] [address] [address] [place] [phone] ABO/Rh type and screen (02/03/2018 5:41 PM CDT) [facility] Signature Units Ordered 2 02/06/2018 [facility] 2:26 PM [facility] ABO A 02/03/2018 [facility] 6:51 PM [facility] RH(D) Pos [facility] Antibody Neg 02/03/2018 [facility] Screen 6:51 PM [facility] Test Valid [place] 02/03/2018 [facility] Only At [facility] 6:52 PM [facility] HOSPITAL Specimen 02/06/2018 02/03/2018 [facility] Expires 6:52 PM [facility] Crossmatch Red Blood 02/03/2018 [place] Cells 6:52 PM [facility] Specimen Anatomical Collection Method Collection Time Receive d Time (Source) Location / / Volume Laterality Blood specimen 02/03/2018 5:41 PM 018 5:42 (specimen) CDT PM CDT Edin Hu MD LAB - BLOOD BANK TEST ORDER Performing Organization Address City/[facility]/ZIP [facility] Phon e Number M [facility] [address] [place], [place] [address] [facility] [address] [place], [place] [address] [facility] [phone] documented in this encounter 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
--- OUTSIDE RECORDS SUMMARY | 2022-05-02 12:21 | XMS_ITS | Encounter Summary ---
:1970 Author Organization [place] Address [address] [place] [address] Care Team Providers Name Role Phone No Ref-Primary, Physician Primary Care Provider Encounter Details Date Type Department Care Team Description 06/28/2018 Travel Social History Tobacco Use Types Packs/Day [...] filedocumented in this encounter Care Teams Metal Fabrication Supervisor Relationship Specialty Start Date End Date No Ref-Primary, Physician PCP - General 09/30/17 documented as of this encounter
--- OUTSIDE RECORDS SUMMARY | 2022-05-02 12:21 | XMS_ITS | Encounter Summary ---
:1970 Author Organization [place] Address [facility] [place] [address] Care Team Providers Name Role Phone No Ref-Primary, Physician Primary Care Provider [phone] Encounter Details Date Type Department Care Team Description 07/31/2018 Orders Only [facility] Cancer [place] Hu MD [facility] ONCOLOGY HEMATOLOGY [facility] Medical Ctr [place] [address] [place] [address] [facility] [address] [place] [address] [place] [phone] Social History Tobacco Use Types Packs/Day Years [...] on filedocumented in this encounter Care Teams Bucket Operator Relationship Specialty Start Date End Date No Ref-Primary, Physician PCP - General 09/30/17 documented as of this encounter
--- OUTSIDE RECORDS SUMMARY | 2022-05-02 12:21 | XMS_ITS | Encounter Summary ---
:1970 Author Organization [place] Address [address] [place] [address] Care Team Providers Name Role Phone No Ref-Primary, Physician Primary Care Provider [phone] Encounter Details Date Type Department Care Team Description 06/28/2018 [facility] Edin Hu, Myelopro liferative Encounter [facility] Laboratory MD disorder (H) (Primary Dx) [address] [place] [address] HEMATOLOGY [place], [place] [address] [place] [address] [facility] [address] [place], [place] [id number] Social History Tobacco Use Types Packs/Day Years [...] Associated Diagnosis Comme nts BLOOD COMPONENT Routine 06/28/2018 10:45 Myeloproliferative Re sults for this AM MARKETING PR INTERN disorder (H) procedure are i n the results section. BLOOD COMPONENT Routine 06/28/2018 10:45 Myeloproliferative Re sults for this AM MARKETING PR INTERN disorder (H) procedure are i n the results section. ABO/RH TYPE AND Routine 06/28/2018 10:45 Myeloproliferative Re sults for this SCREEN AM MARKETING PR INTERN disorder (H) procedure are i n the results section. documented in this encounter Results Blood component (06/28/2018 10:45 AM MARKETING PR INTERN) [facility] Method Time Signature Unit Number [id number] 06/29/2018 [facility] 7:58 AM [facility] Blood Red Blood 06/29/2018 [facility] Component Cells 7:58 AM [facility] Reduced Division 00 06/29/2018 [facility] Number 7:58 AM [facility] Status of Released to 06/29/2018 [place] Unit care unit 11:52 PM [facility] Blood Product [id number] 06/29/2018 [facility] Code 7:58 AM [facility] Unit Status ISS [facility] Specimen Anatomical Collection Method Collection Time Receive d Time (Source) Location / / Volume Laterality 06/28/2018 10:45 06/28/2018 AM MARKETING PR INTERN 11:36 AM MARKETING PR INTERN Edin Hu MD LABORATORY Performing Organization Address City/State/ZIP Code Phon e Number M [facility] [address] [place], [place] [address] [phone] [facility] [address] [phone] Blood component (06/28/2018 10:45 AM MARKETING PR INTERN) [facility] Method Time Signature Unit Number [id number] 06/29/2018 [facility] 7:58 AM [facility] Blood Red Blood 06/29/2018 [facility] Component Cells 7:58 AM [facility] HOSPITAL Reduced Division 00 06/29/2018 [facility] Number 7:58 AM [facility] Status of Released to 06/29/2018 [place] Unit care unit 11:52 PM [facility] Blood Product [id number] 06/29/2018 [facility] Code 7:58 AM [facility] Unit Status ISS [facility] Specimen Anatomical Collection Method Collection Time Receive d Time (Source) Location / / Volume Laterality 06/28/2018 10:45 06/28/2018 AM MARKETING PR INTERN 11:36 AM [employer] INTERN Edin Hu MD LABORATORY Performing Organization Address City/State/ZIP Code Phon e Number M [facility] [address] [place], [place] [address] [facility] [address] [place], [place] [address], [facility] [phone] ABO/Rh type and screen (06/28/2018 10:45 AM MARKETING PR INTERN) [facility] Method Time Signature Units Ordered 2 06/29/2018 [facility] 7:58 AM [facility] ABO A 06/28/2018 [facility] 12:17 PM [facility] RH(D) Pos [facility] Antibody Neg 06/28/2018 [facility] Screen 12:17 PM [facility] Test Valid [place] 06/28/2018 [facility] Only At [facility] 12:18 PM [facility] Specimen 07/01/2018 06/28/2018 [facility] Expires 12:18 PM [facility] Crossmatch Red Blood 06/29/2018 [facility] Cells 7:58 AM [facility] Specimen Anatomical Collection Method Collection Time Receive d Time (Source) Location / / Volume Laterality Blood specimen 06/28/2018 10:45 8 (specimen) AM MARKETING PR INTERN 11:36 AM MARKETING PR INTERN Edin Hu MD LAB - BLOOD BANK TEST ORDER Performing Organization Address City/[facility]/ZIP [facility] Phon e Number M [facility] [address] [place], [place] [address] [facility] [address] [place], [place] [address], [facility] [phone] documented in this encounter Visit Diagnoses Diagnosis 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
--- OUTSIDE RECORDS SUMMARY | 2022-05-02 12:21 | XMS_ITS | Encounter Summary ---
:1970 Author Organization [place] Address [address] [place] [address] Care Team Providers Name Role Phone No Ref-Primary, Physician Primary Care Provider [phone] Reason for Visit Reason Comments Blood Transfusion 1 unit packed red blood cell s Encounter Details Date Type Department Care Team Description 08/24/2018 Infusion Therapy [facility] Edin Hu, Melania oproliferative Visit Cancer Center MD disorder (H) (Primary Dx) [facility] ONCOLOGY [facility] Medical Ctr HEMATOLOGY [address] [place] [phone] Social History Tobacco Use Types Packs/Day Years [...] Sign Reading Time Taken Comments Blood Pressure 124/59 08/24/2018 3:57 PM ORE CRUSHER Pulse 82 08/24/2018 3:57 PM ORE CRUSHER Temperature 37.3 ??C (99.2 ??F) 08/24/2018 3:57 PM ORE CRUSHER Respiratory Rate 16 08/24/2018 3:57 PM ORE CRUSHER Oxygen Saturation 99% 08/24/2018 3:57 PM ORE CRUSHER Inhaled Oxygen Concentration - - Weight - - Height - - Body Mass Index - - documented in this encounter Progress Notes Cathi Perkins RN - 08/24/2018 1:00 PM CST Infusion Nursing Note: Jennifer Dobbs presents today for 1 unit packed red blood cells. Patient seen by provider today: No Building Cleaning Supervisor present during visit today: Not Applicable. Note: Patient fatigued, SOB, dizzy and weak. Intravenous Access: Labs drawn without difficulty. Peripheral IV placed. Patient had gone to [facility] instead of [facility] for T&C. Therefore, ABO redrawn. Treatment Conditions: Hgb 6.6. Post Infusion Assessment: Patient tolerated infusion without incident. Blood return noted pre and post infusion. Site patent and intact, free from redness, edema or discomfort. No evidence of extravasations. Access discontinued per protocol. Discharge Plan: Discharge instructions reviewed with: Patient. Patient discharged in stable condition accompanied by: . Departure Mode: Ambulatory. Cathi Perkins RN CRUSHER documented in this encounter Plan of Treatment Not on filedocumented as of this encounter Procedures Procedure Name Priority Date/Time Associated Diagnosis Comme nts TRANSFUSE RED Routine 08/24/2018 2:38 Myeloproliferative BLOOD CELL UNIT PM ORE CRUSHER disorder (H) BLOOD COMPONENT Routine 08/24/2018 1:17 Myeloproliferative Res ults for this PM ORE CRUSHER disorder (H) procedure are i n the results section. ABO/RH TYPE AND Routine 08/24/2018 1:17 Myeloproliferative Res ults for this SCREEN PM ORE CRUSHER disorder (H) procedure are i n the results section. documented in this encounter Results Transfuse red blood cell unit (08/24/2018 3:58 PM ORE CRUSHER) Edin Hu MD IP NURSING BLOOD ADMINISTRAT ON Transfuse red blood cell unit (08/24/2018 3:58 PM ORE CRUSHER) Edin Hu MD IP NURSING BLOOD ADMINISTRAT ON Blood component (08/24/2018 1:17 PM ORE CRUSHER) [facility] Method Time Signature Unit Number [id number] 08/24/2018 [facility] 2:31 PM [facility] Blood Red Blood 08/24/2018 [facility] Component Cells 2:31 PM [facility] HOSPITAL Reduced Division 00 08/24/2018 [facility] Number 2:31 PM [facility] Status of Released to 08/24/2018 [place] Unit care unit 11:52 PM [facility] Blood Product [id number] 08/24/2018 [facility] Code 2:31 PM [facility] Unit Status ISS [facility] Specimen Anatomical Collection Method Collection Time Receive d Time (Source) Location / / Volume Laterality 08/24/2018 1:17 PM 9 1:48 ORE CRUSHER PM ORE CRUSHER Edin Hu MD LABORATORY Performing Organization Address City/[facility]/ZIP Code Phon e Number M [facility] [address] [place], [place] [address] [facility] [address] [place], [place] [address], [facility] [phone] ABO/Rh type and screen (08/24/2018 1:17 PM ORE CRUSHER) [facility] gist Method Time Signature Units Ordered 1 08/24/2018 [facility] 2:31 PM [facility] ABO A 08/24/2018 [facility] 2:33 PM [facility] RH(D) Pos [facility] Antibody Neg 08/24/2018 [facility] Screen 2:33 PM [facility] Test Valid [place] 08/24/2018 [facility] Only At [facility] 2:31 PM [facility] Specimen 08/27/2018 08/24/2018 [facility] Expires 2:31 PM [facility] Crossmatch Red Blood 08/24/2018 [facility] Cells 2:31 PM [facility] Specimen Anatomical Collection Method Collection Time Receive d Time (Source) Location / / Volume Laterality Blood specimen 08/24/2018 1:17 PM 019 1:48 (specimen) ORE CRUSHER PM ORE CRUSHER Edin Hu MD LAB - BLOOD BANK TEST ORDER Performing Organization Address City/[facility]/ZIP [facility] Phon e Number M [facility] [address] [place], [place] [address] [facility] [address] [place], [place] [address], [facility] [phone] documented in this encounter Visit Diagnoses Diagnosis 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
--- OUTSIDE RECORDS SUMMARY | 2022-05-02 12:21 | XMS_ITS | Encounter Summary ---
:1970 Author Organization [place] Address [address] [facility] [place] [address] Care Team Providers Name Role Phone No Ref-Primary, Physician Primary Care Provider Encounter Details Date Type Department Care Team Description 06/26/2018 Medical Correspondence [facility] Scan, CLINIC REFERRAL Health Info Mgmt Non-Provider [facility] NCOLOG Srvcs [address] [place] [phone] Social History Tobacco Use Types Packs/Day [...] on filedocumented in this encounter Care Teams Dry Color Mixer Relationship Specialty Start Date End Date No Ref-Primary, Physician PCP - General 09/30/17 documented as of this encounter
--- OUTSIDE RECORDS SUMMARY | 2022-05-02 12:21 | XMS_ITS | Encounter Summary ---
:1970 Author Organization [place] Address [facility] [place] [address] Care Team Providers Name Role Phone No Ref-Primary, Physician Primary Care Provider [phone] Encounter Details Date Type Department Care Team Description 08/24/2018 [facility] Edin Hu, Myelopro liferative Encounter [facility] disorder (H) Laboratory [place] [facility] [address] [facility] [address] HEMATOLOGY [place], [place] [address] [place] [address] [facility] [address] [place] [address] Social History Tobacco Use Types [...] Name Priority Date/Time Associated Diagnosis Comme nts ABO/RH TYPE AND Routine 08/24/2018 12:25 Myeloproliferative Re sults for this SCREEN PM NEEDLE PUNCH MACHINE OPERATOR HELPER disorder (H) procedure are i n the results section. documented in this encounter Results ABO/Rh type and screen (08/24/2018 12:25 PM NEEDLE PUNCH MACHINE OPERATOR HELPER) [facility] gist Method Time Signature ABO A 08/24/2018 [place] 1:09 PM NEEDLE PUNCH MACHINE OPERATOR HELPER [facility] RH(D) Pos [facility] Antibody Neg 08/24/2018 [place] Screen 1:09 PM NEEDLE PUNCH MACHINE OPERATOR HELPER [facility] Test Valid [place] 08/24/2018 [place] Only At [facility] 12:52 PM NEEDLE PUNCH MACHINE OPERATOR HELPER [facility] Specimen 08/27/2018 08/24/2018 [place] Expires 12:52 PM NEEDLE PUNCH MACHINE OPERATOR HELPER [facility] Specimen Anatomical Collection Method Collection Time Receive d Time (Source) Location / / Volume Laterality Blood specimen 08/24/2018 12:25 9 (specimen) PM NEEDLE PUNCH MACHINE OPERATOR HELPER 12:30 PM NEEDLE PUNCH MACHINE OPERATOR HELPER Edin Hu MD LAB - BLOOD BANK TEST ORDER Performing Organization Address City/State/ZIP Code Phon e Number M [facility] [address] [address] [phone] [facility] [address] [address], [facility] [phone] documented in this encounter 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
--- OUTSIDE RECORDS SUMMARY | 2022-05-02 12:21 | XMS_ITS | Encounter Summary ---
:1970 Author Organization [facility] Address [address] [place] [place] [address] Care Team Providers Name Role Phone No Ref-Primary, Physician Primary Care Provider [phone] Encounter Details Date Type Department Care Team Description 05/18/[address] [facility] Cancer AndersIndia burnett, DRILLING INSPECTOR [facility] ONCOLOGY HEMATOLOGY [facility] Medical Ctr [facility] [address] [address] [facility] [address] [place] [address] [place] [id number] [phone] Social History Tobacco Use Types Packs/Day Years [...] on filedocumented in this encounter Care Teams Button Pusher Relationship Specialty Start Date End Date No Ref-Primary, Physician PCP - General 09/30/17 documented as of this encounter
--- OUTSIDE RECORDS SUMMARY | 2022-05-02 12:21 | XMS_ITS | Encounter Summary ---
:1970 Author Organization [facility] Address [address] [place] [address] Care Team Providers Name Role Phone No Ref-Primary, Physician Primary Care Provider [phone] Encounter Details Date Type Department Care Team Description 09/16/2018 [facility] Edin Hu MD [place] ONCOLOGY HEMATOLOGY [address] [facility] 200 [place] [address] Myeloproliferative Encounter [facility] India Sharp NP [place] ONCOLOGY HEMATOLOGY [address] [facility] 200 [place], [place] [id number] disorder (H) [address] [place] [phone] Social History Tobacco Use Types Packs/Day Years [...] Associated Diagnosis Comme nts BLOOD COMPONENT Routine 09/16/2018 5:40 Myeloproliferative Res ults for this PM COOKING SHOW HOST disorder (H) procedure are i n the results section. ABO/RH TYPE AND Routine 09/16/2018 5:40 Myeloproliferative Res ults for this SCREEN PM COOKING SHOW HOST disorder (H) procedure are i n the results section. documented in this encounter Results Blood component (09/16/2018 5:40 PM COOKING SHOW HOST) [facility] Method Time Signature Unit Number [id number] 09/16/2018 [facility] 6:38 PM [facility] Blood Red Blood 09/16/2018 [facility] Component Cells 6:38 PM [facility] Reduced Division 00 09/16/2018 [facility] Number 6:38 PM [facility] Status of Released to 09/17/2018 [facility] Unit care unit 11:52 PM [facility] Blood Product [id number] 09/16/2018 [facility] Code 6:38 PM [facility] Unit Status ISS [facility] Specimen Anatomical Collection Method Collection Time Receive d Time (Source) Location / / Volume Laterality 09/16/2018 5:40 PM 9 5:43 COOKING SHOW HOST PM [facility]OST India Sharp NP LABORATORY Performing Organization Address City/State/ZIP Code Phon e Number M [facility] [address] [place], [place] [address] [facility] [address] [place], [place] [address] [facility] [phone] ABO/Rh type and screen (09/16/2018 5:40 PM COOKING SHOW HOST) [facility] Method Time Signature Units Ordered 1 09/16/2018 [facility] 6:38 PM [facility] ABO A 09/16/2018 [facility] 6:33 PM [facility] RH(D) Pos [facility] Antibody Neg 09/16/2018 [facility] Screen 6:33 PM [facility] Test Valid [place] 09/16/2018 [facility] Only At [facility] 6:38 PM [facility] HOSPITAL Specimen 09/19/2018 09/16/2018 [facility] Expires 6:38 PM [facility] Crossmatch Red Blood 09/16/2018 [facility] Cells 6:38 PM [facility] Specimen Anatomical Collection Method Collection Time Receive d Time (Source) Location / / Volume Laterality Blood specimen 09/16/2018 5:40 PM 019 5:43 (specimen) COOK[facility]OW HOST PM COOK[facility]OW HOST India Sharp NP LAB - BLOOD BANK TEST ORDER Performing Organization Address City/State/ZIP Code Phon e Number M [place] [address] [address] [place] [address] [facility] [address] [phone] documented in this encounter 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
--- OUTSIDE RECORDS SUMMARY | 2022-05-02 12:21 | XMS_ITS | Encounter Summary ---
:1970 Author Organization [place] Address [address] [place] [address] Care Team Providers Name Role Phone No Ref-Primary, Physician Primary Care Provider [phone] Reason for Visit Reason Comments Infusion 2 units PRBC Encounter Details Date Type Department Care Team Description 06/29/2018 Infusion Therapy [facility] Edin Hu, Melania oproliferative Visit Cancer Center MD disorder (H) (Primary Dx) [facility] ONCOLOGY [facility] Medical C[facility] HEMATOLOGY [place] [address] [facility] [address] [place] [address] [address] [place] [phone] [phone] Social History Tobacco Use Types Packs/Day Years [...] Sign Reading Time Taken Comments Blood Pressure 133/79 06/29/2018 4:15 PM has been talk ing with FARMWORKER DAIRY social sciences department chair re : insurance; tearf ul Pulse 84 06/29/2018 1:07 PM FARMWORK[employer]IR[employer] Temperature 36.9 ??C (98.4 ??F) 06/29/2018 4:15 PM [employer] Respiratory Rate 20 06/29/2018 4:15 PM [employer]WORK[employer]IR[employer] Oxygen Saturation 100% 06/29/2018 4:15 PM [employer] Inhaled Oxygen - - Concentration Weight - - Height - - Body Mass Index - - documented in this encounter Progress Notes Michelle Potts RN - 06/29/2018 12:30 PM CST Infusion Nursing Note: Jennifer Dobbs presents today for 2 units PRBC. Patient seen by provider today: No Patient Safety Attendant present during visit today: Not Applicable. Note: Has had a transfusion previously; no questions before beginning. Provided with After Your Transfusion information sheet. During the second unit of PRBC, patient and were speaking with Bottle House Pumper re: lack of insurance and potential resources. BP slightly higher during this time, but attributed this to patient being tearful and discussing stressors. No other signs/symptoms of reaction. Intravenous Access: Peripheral IV placed. Treatment Conditions: Blood transfusion consent signed today. Hgb 7.6 on 06/26/18. Post Infusion Assessment: Patient tolerated infusion without [...] . Departure Mode: Ambulatory. Michelle Potts RN WORKER DAIRY documented in this encounter Plan of Treatment Not on filedocumented as of this encounter Procedures Procedure Name Priority Date/Time Associated Diagnosis Comme nts TRANSFUSE RED BLOOD Routine 06/29/2018 3:04 PM Myeloproliferat otoniel disorder CELL UNIT FARMWORK[employer] DAIRY (H) TRANSFUSE RED BLOOD Routine 06/29/2018 1:40 PM Myeloproliferat otoniel disorder CELL UNIT FARMWORKER DAIRY (H) documented in this encounter Results Transfuse red blood cell unit (06/29/2018 4:54 PM FARMWORKER DAIRY) Edin Hu MD IP NURSING BLOOD ADMINISTRAT ON Transfuse red blood cell unit (06/29/2018 4:54 PM FARMWORKER DAIRY) Edin Hu MD IP NURSING BLOOD ADMINISTRAT ON Transfuse red blood cell unit (06/29/2018 3:04 PM FARMWORKER DAIRY) Edin Hu MD IP NURSING BLOOD ADMINISTRAT ON documented in this encounter Visit Diagnoses Diagnosis 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
--- OUTSIDE RECORDS SUMMARY | 2022-05-02 12:21 | XMS_ITS | Encounter Summary ---
:1970 Author Organization [place] Address [address] [place] [address] Care Team Providers Name Role Phone No Ref-Primary, Physician Primary Care Provider [phone] Encounter Details Date Type Department Care Team Description 03/13/2018 - Hospital Encounter [facility] Renetta Hu MD 03/14/2018 [facility] ONCOLOGY [facility] HEMATOLOGY Stay [address] [place] [address] [place] [address] [phone] Social History Tobacco Use Types Packs/Day Years [...] Sign Reading Time Taken Comments Blood Pressure 147/52 03/14/2018 1:05 AM CDT Pulse 74 03/13/2018 11:21 PM CDT Temperature 37.2 ??C (99 ??F) 03/14/2018 1:05 AM CDT Respiratory Rate 18 03/14/2018 1:05 AM CDT Oxygen Saturation 99% 03/14/2018 12:20 AM CDT Inhaled Oxygen Concentration - - Weight 99.5 kg (219 lb 4.8 oz) 03/13/2018 3:37 PM CDT Height 170.2 cm (5' 7) 03/13/2018 3:37 PM CDT Body Mass Index 34.35 03/13/2018 3:37 PM CDT documented in this encounter Medications [...] documented as of this encounter Progress Notes Vimal Coleman RN - 03/14/2018 1:32 AM CDT Blood transfusion completed at 0105, VSS, no transfusion reaction noted, pt is stable, wants to leave as soon as she can. N/S run for about 15 minutes. Pt was discharged and she left in the company of her . documented in this encounter Miscellaneous Notes Provider Notification - Lanette Aquino RN - 03/13/2018 4:30 PM CDT Return call to [facility] for blood transfusion orders and For meds. Orders faxed to station Provider Notification - Lanette Aquino RN - 03/13/2018 3:30 PM CDT Notification Notified Person: MD Dr. Hu Notified Person Name:Dr. Hu Notification Date/Time:03/13/18 1980 Notification Interaction:telephone Purpose of Notification: to get orders for home meds and blood orders Orders Received:awaiting call return Comments: documented in this encounter Plan of Treatment Not on filedocumented as of this encounter Procedures Procedure Name Priority Date/Time Associated Diagnosis Comme nts TRANSFUSE RED BLOOD Routine 03/13/2018 7:00 PM CELL UNIT CDT BLOOD COMPONENT Routine 03/13/2018 5:44 PM Result s for this CDT procedure are i n the results section. BLOOD COMPONENT Routine 03/13/2018 5:44 PM Result s for this CDT procedure are i n the results section. ABO/RH TYPE AND STAT 03/13/2018 5:44 PM Result s for this SCREEN CDT procedure are i n the results section. documented in this encounter Results Transfuse red blood cell unit (03/14/2018 1:17 AM CDT) Edin Hu MD IP NURSING BLOOD ADMINISTRAT ON Transfuse red blood cell unit (03/13/2018 10:37 PM CDT) Edin Hu MD IP NURSING BLOOD ADMINISTRAT ON Blood component (03/13/2018 5:44 PM CDT) [facility] Method Time Signature Unit Number [id number] 03/13/2018 [facility] 10:[address] [facility] Blood Red Blood 03/13/2018 [place] Component Cells 10:51 PM CDT [facility] Reduced Division 00 03/13/2018 [facility] Number 10:[address] [facility] Status of Released to 03/13/2018 [facility] Unit care unit 11:[address] [facility] Blood Product [id number] 03/13/2018 [facility] Code 10:[address] [facility] Unit Status ISS [facility] Specimen Anatomical Collection Method Collection Time Receive d Time (Source) Location / / Volume Laterality 03/13/2018 5:44 PM 8 5:52 CDT PM CDT Edin Hu MD LABORATORY Performing Organization Address City/State/ZIP Code Phon e Number M [facility] [address] [address] [facility] [address] [address], [place] [phone] Blood component (03/13/2018 5:44 PM CDT) [facility] orderTopia Method Time Signature Unit Number [id number] 03/13/2018 [facility] 6:[address] [facility] Blood Red Blood 03/13/2018 [place] Component Cells 6:39 PM CDT [facility] HOSPITAL Reduced Division 00 03/13/2018 [facility] Number 6:[address] [facility] Status of Released to 03/13/2018 [facility] Unit care unit 11:[address] [facility] Blood Product [id number] 03/13/2018 [place] Code 6:[address] [facility] Unit Status ISS [facility] Specimen Anatomical Collection Method Collection Time Receive d Time (Source) Location / / Volume Laterality 03/13/2018 5:44 PM 8 5:52 CDT PM CDT Edin Hu MD LABORATORY Performing Organization Address City/State/ZIP Code Phon e Number M [facility] [address] [address] [facility] [address] [place] [address], [place] [phone] ABO/Rh type and screen (03/13/2018 5:44 PM CDT) [facility] orderTopia Method Time Signature Units Ordered 2 03/13/2018 [place] 10:[address] [facility] ABO A 03/13/2018 [place] 6:[address] [facility] RH(D) Pos [facility] Antibody Neg 03/13/2018 [place] Screen 6:[address] [facility] Test Valid [place] 03/13/2018 [place] Only At [facility] 6:25 PM CDT [facility] HOSPITAL Specimen 03/16/2018 03/13/2018 [place] Expires 6:[address] [facility] Crossmatch Red Blood 03/13/2018 [place] Cells 6:[address] [facility] Specimen Anatomical Collection Method Collection Time Receive d Time (Source) Location / / Volume Laterality Blood specimen 03/13/2018 5:44 PM 018 5:52 (specimen) CDT PM CDT Edin Hu MD LAB - BLOOD BANK TEST ORDER Performing Organization Address City/State/ZIP Code Phon e Number M [facility] [address] [address] [phone] [facility] [address] [place] [address], [place] [phone] documented in this encounter Visit Diagnoses Not on filedocumented in this encounter Administered Medications Inactive Administered Medications - up to 3 most recent administrations Medication Order MAR Action Action Date Dose Rate Site 0.9% sodium chloride BOLUS New Bag 03/14/2018 1:27 AM 250 mLs 100 mL/hr Intravenous, 1-250 mL, EVERY 1 CDT HOUR PRN, To prime infusion tubing AND flush blood through tubing POST blood component administration., Starting on Fri03/13/18 at 1702, IF blood component ordered, nurse to administer rate and volume of fluid pre-blood component administration to PRIME tubing AND to FLUSH blood through tubing post blood component administration UNTIL tubing is clear of visible blood. Use MINIMUM volume necessary for pre and post blood component administration. IF duplicate order nurse to discontinue the duplicate order. morphine (MS CONTIN) 12 hr tablet 60 mg Given 03/13/2018 5:51 PM CDT 60 mg 60 mg, Oral, EVERY 12 HOURS SCHEDULED, First dose on Fri03/13/18 at 1800, DO NOT CRUSH. naloxone (NARCAN) injection 0.1-0.4 mg 0.1-0.4 mg, Intravenous, EVERY 2 MIN PRN , opioid reversal, Starting on Fri03/13/18 at 1745, For respiratory rate LESS than or EQUAL to 8. Partial reversal dose: 0.1 mg titrated q 2 minutes for Analgesia Si de Effects Monitoring Sedation Level of 3 (frequently drowsy, arousable, drifts to sleep during conversation).Full reversal dose: 0.4 mg bolus for Analgesia Side Effects Monitori ng Sedation Level of 4 (somnolent, minimal or no response to stimulation). Fo r ordered doses up to 2mg give IVP. Give each 0.4mg over 15 second s in emergency situations. For non-emergent situations further dilute in 9mL of NS to facilitate t itration of response. documented in this encounter Active and Recently Administered Medications Times are shown in CDT. Scheduled Medication Order 03/12/2018 03/13/2018 03/14/2018 morphine (MS CONTIN) 12 hr tablet 60 mg 1751 (Given - Provider: Lanette Aquino, HELENE) 60 mg, Oral, EVERY 12 HOURS SCHEDULED, F irst dose on Fri03/13/18 at 1800, DO NOT CRUSH. PRN Medication Order 03/12/2018 03/13/2018 03/14/2018 0.9% sodium chloride BOLUS 0127 (New Bag - Provider: Vimal Coleman RN) Intravenous, 1-250 mL, EVERY 1 HOUR PRN, To prime infusion tubing AND flush blood through tubing POST blood component administration., Starting Fri03/13/18 at 1702, IF blood component ordered, nurse to administer rate and volume of fluid pre- blood component administration to PRIME tubing AND to FLUSH blood through tubing post blood component administration UNTIL tubing is clear of visible blood. Use M INIMUM volume necessary for pre and post blood component administration. IF duplicate order nurse to discontinue the duplicate order. naloxone (NARCAN) injection 0.1-0.4 mg 0.1-0.4 mg, Intravenous, EVERY 2 MIN PRN , opioid reversal, Starting Fri03/13/18 at 1745, For respiratory rate LESS than or EQUAL to 8. Partial reversal dose: 0.1 mg titrated q 2 minutes for Analgesia Si de Effects Monitoring Sedation Level of 3 (frequently drowsy, arousable, drifts to sleep during conversation).Full reversal dose: 0.4 mg bolus for Analgesia Side Effects Monitoring Sedation Level of 4 ( somnolent, minimal or no response to sti mulation). For ordered doses up to 2mg give IVP. Give each 0.4mg over 15 seconds in emergency situations. For non- emergent situations further dilute in 9mL of NS to facilitate titration of response. documented in this encounter Care Teams Livestock Handler Relationship Specialty Start Date End Date No Ref-Primary, Physician PCP - General 09/30/17 documented as of this encounter
--- OUTSIDE RECORDS SUMMARY | 2022-05-02 12:22 | XMS_ITS | Encounter Summary ---
:1970 Author Organization [place] Address [address] [place] [address]. [place] [address] Care Team Providers Name Role Phone No Ref-Primary, Physician Primary Care Provider [phone] Encounter Details Date Type Department Care Team Description 09/14/2015 Telephone [facility] Tiffanie Mueller, RN [address] [place] [address] Social History Tobacco Use Types Packs/Day Years Used Date Smoking Tobacco: Former Comments: quit September 27, 2012 Alcohol Use Standard Drinks/Week Comments Yes 0 (1 standard drink = 0.6 oz pure alcoho l) 1 drink per week Sex Assigned at Date Recorded Not on file documented as of this encounter Miscellaneous Notes Telephone Encounter - Tiffanie Mueller RN - 09/14/2015 7:00 PM CST Call Type: Triage Call Presenting Problem: Per . My saw the oncologist today and had a bone biopsy. He wasn't able to prescribe her any pain medication. He said to see Dr Washington in the ER. Declines triage. Is there with his who is having pain. Wants to know if there is any other way to get some pain medication for his other than going to the ER. Plan: Advised that she will need to be seen in the ER to get more pain medication prescribed. Is going to go to the [facility] ER. Triage Note: Guideline Title: Medication Questions - Adult ; Medication Questions - Adult Recommended Disposition: Call Dispensing Pharmacy or Provider Immediately Original Inclination: Wanted to speak with a nurse Override Disposition: See ED Immediately Intended Action: Go to Hospital / ED Physician Contacted: No Requests refill of prescribed medication that does NOT have a valid refill; lack of medication may cause clinical risk to patient if not available. ? YES Sign(s) or symptom(s) associated with a diagnosed condition or with a new illness ? NO Prescription ordered today and not available at pharmacy putting patient at clinical risk ? NO Recurrence of a symptom(s) or illness post prescribed medication treatment AND provider instructed patient to call if symptom(s) returned. ? NO Unable to obtain prescribed medication related to available resources AND situation poses immediate clinical risk ? NO Pharmacy calling to clarify prescription order. ? NO Physician Instructions: Care Advice: COPTER MECHANIC documented in 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 Care Teams Disc Pad Plate Filler Relationship Specialty Start Date End Date No Ref-Primary, Physician PCP - General 09/11/15 12/12/15 documented as of this encounter
--- OUTSIDE RECORDS SUMMARY | 2022-05-02 12:22 | XMS_ITS | Encounter Summary ---
:1970 Author Organization [place] Address [address] [place] [address] Care Team Providers Name Role Phone [facility], [facility] Primary Care Provider [phone] Reason for Visit (Routine) - Closed Specialty Diagnoses / Procedures Referred By Contact Refer red To Contact Radiology / Diagnoses non epic order..sb Hira..NPO 8 hours..checking spleen size Rh Ultrasound cc Radiology. Procedures US ABDOMEN LIMITED [address] [place] [address] Phone: Fax: Referral ID Status Reason Start Date Expiration Date Visits Requ ested Visits Authorized [id number] Closed 12/25/2015 12/24/2016 1 1 Encounter Details Date Type Department Care Team Description 12/27/2015 [facility] Edin Hu, Myelopro liferative Encounter [facility] Specialty [facility] () [facility] [place] [facility] Imaging HEMATOLOGY [address] [place] [address] [place] [id number] Social History Tobacco Use Types Packs/Day Years [...] Sig Dispensed Refills Start Date End Date MORPHINE SULFATE PO Take 60 mg by [...] 2 times daily 8.6-50 MG per tablet ondansetron (ZOFRAN ODT) 4 Take 1-2 tablets 30 tablet 0 02/04/2018 MG disintegrating tablet (4-8 mg) by mouth every 8 hours as needed for nausea Ruxolitinib Phosphate Take by mouth 2 0 12/24/2017 (JAKAFI PO) times daily (JAKAFI, new rx, Pt states experimental) documented as of this encounter Plan of Treatment Not on filedocumented as of this encounter Procedures Procedure Name Priority Date/Time Associated Diagnosis Comme nts US ABDOMEN Routine 12/27/2015 10:08 Myeloproliferative Resul ts for this LIMITED AM CDT disorder (H) procedure are i n the results section. documented in this encounter Results US Abdomen Limited (12/27/2015 10:08 AM CDT) Anatomical Region Laterality Modality Abdomen/Pelvis Ultrasound Specimen (Source) Anatomical Location Collection Method / Collectio n Time Received Time / Laterality Volume Impressions 12/28/2015 10:50 AM CDT IMPRESSION: Enlarged spleen. CHRISTIANO UPTON MD Narrative 12/28/2015 10:50 AM CDT ULTRASOUND ??ABDOMEN LIMITED 12/27/2015 10:08 AM CLINICAL INFORMATION: Myeloproliferative disorder (H). ??Chronic myeloproliferative disease. COMPARISON: CT dated 08/28/2015. FINDINGS: Limited ultrasound of the sple en demonstrates splenic enlargement. The spleen measures approxi mately 25.3 cm in length. Comparison between modalities is difficu lt but this could be slightly larger. By my measurement on the prior C T, the spleen was approximately 22 cm in greatest cranioca udad dimension. No focal splenic lesions or perisplenic fluid col lections. Procedure Note Christiano Upton MD - 12/28/2015F ormatting of this note might be different from the original. ULTRASOUND ABDOMEN LIMITED 12/27/2015 10: 08 AM CLINICAL INFORMATION: Myeloproliferative disorder (H). Chronic myeloproliferative disease. COMPARISON: CT dated 08/28/2015. FINDINGS: Limited ultrasound of the sple en demonstrates splenic enlargement. The spleen measures approxi mately 25.3 cm in length. Comparison between modalities is difficu lt but this could be slightly larger. By my measurement on the prior C T, the spleen was approximately 22 cm in greatest cranioca udad dimension. No focal splenic lesions or perisplenic fluid col lections. IMPRESSION: Enlarged spleen. 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
--- OUTSIDE RECORDS SUMMARY | 2022-05-02 12:22 | XMS_ITS | Encounter Summary ---
:1970 Author Organization [place] Address [address] [place] [address] Care Team Providers Name Role Phone No Ref-Primary, Physician Primary Care Provider [phone] Reason for Visit Reason Comments Blood Transfusion 1 unit prbc Encounter Details Date Type Department Care Team Description 12/24/[address] [facility] DieGuru olson, Myelo proliferative Visit Cancer Center MD disorder (H) (Primary Dx) [facility] ONCOLOGY [facility] HEMATOLOGY [facility] [address] [place] [address] [place] [phone] Social History Tobacco Use Types Packs/Day Years [...] Sign Reading Time Taken Comments Blood Pressure 114/57 12/24/2017 9:35 AM CDT Pulse - - Temperature 36.7 ??C (98 ??F) 12/24/2017 9:35 AM CDT Respiratory Rate 18 12/24/2017 8:42 AM CDT Oxygen Saturation 92% 12/24/2017 8:42 AM CDT Inhaled Oxygen Concentration - - Weight - - Height - - Body Mass Index - - documented in this encounter Progress Notes Bre Mosher RN - 12/24/2017 8:00 AM CDT Infusion Nursing Note: Jennifer Dobbs presents today for 1 unit PRBC. Patient seen by provider today: No Medical Receptionist Biller present during visit today: Not Applicable. Note: N/A. Intravenous Access: Peripheral IV placed. Treatment Conditions: Blood transfusion consent signed 07/02/17. HGB 7.6. Post Infusion Assessment: Patient tolerated infusion without [...] Diagnosis Comme nts TRANSFUSE RED BLOOD Routine 12/24/2017 8:27 AM Myeloproliferat otoniel disorder CELL UNIT CDT (H) documented in this encounter Results Transfuse red blood cell unit (12/24/2017 9:58 AM CDT) Guru Antony MD IP NURSING BLOOD ADMINISTRAT ON Transfuse red blood cell unit (12/24/2017 9:58 AM CDT) Guru Antony MD IP NURSING BLOOD ADMINISTRAT ON ABO/Rh type and screen (12/23/2017 5:51 PM CDT) [facility] Method Time Signature Units Ordered 1 12/24/2017 [place] 7:32 AM [facility] ABO A 12/23/2017 [facility] 6:36 PM [facility] RH(D) Pos [facility] Antibody Neg 12/23/2017 [place] Screen 6:36 PM [facility] Test Valid [place] 12/23/2017 [facility] 6:37 PM [facility] Specimen 12/26/2017 12/23/2017 [facility] Expires 6:37 PM [facility] Crossmatch Red Blood 12/24/2017 [place] Cells 7:32 AM [facility] Specimen Anatomical Collection Method Collection Time Receive d Time (Source) Location / / Volume Laterality Blood specimen 12/23/2017 5:51 PM 018 5:52 (specimen) CDT PM CDT Guru Antony MD LAB - BLOOD BANK TEST ORDER Performing Organization Address City/State/ZIP Code Phon e Number M [facility] [address] [place], [place] [address] [facility] [address] [place], [place] [address] [facility] [phone] documented in this encounter Visit Diagnoses Diagnosis 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
--- OUTSIDE RECORDS SUMMARY | 2022-05-02 12:22 | XMS_ITS | Encounter Summary ---
:1970 Author Organization [place] Address [address] [place] [address]. [place] [address] Care Team Providers Name Role Phone [facility], [facility] Primary Care Provider [phone] Carolann Macias MD Unavailable Reason for Visit Reason Comments Infusion Here for 1 unit of packed ce lls for HBG of 7.8 Encounter Details Date Type Department Care Team Description 02/10/2017 Infusion Therapy [facility] Guru Antony, Myelo proliferative Visit Cancer Center disorder (H) (Primary Dx) Sherice [facility]COL[facility] Medical Ctr HEMATOLOGY [facility] [address] [place] [phone] Social History Tobacco Use Types Packs/Day [...] Reading Time Taken Comments Blood Pressure 139/76 02/10/2017 3:15 PM CDT Pulse 75 02/10/2017 3:15 PM CDT Temperature 37.1 ??C (98.8 ??F) 02/10/2017 3:15 PM CDT Respiratory Rate 16 02/10/2017 3:15 PM CDT Oxygen Saturation - - Inhaled Oxygen Concentration - - Weight - - Height - - Body Mass Index - - documented in this encounter Progress Notes Latoya Felipe RN - 02/10/2017 11:30 AM CDT Infusion Nursing Note: Jennifer Dobbs presents today for transfusion of packed cells . Patient seen by provider today: No Back Tender Fourdrinier present during visit today: Not Applicable. Note: N/A. Intravenous Access: Lab draw site Right Ac, Needle type Insyte , Gauge#22 tracey blood but wouldn't thread dc'd all parts intact.. Peripheral IV placed. Treatment Conditions: Blood transfusion consent signed 02/10/2017. Post Infusion Assessment: Patient tolerated infusion without incident. Access discontinued per protocol. Discharge Plan: Patient discharged in stable condition accompanied by: sister. Departure Mode: Ambulatory. Latoya Felipe RN documented in this encounter Plan of Treatment Not on filedocumented as of this encounter Procedures Procedure Name Priority Date/Time Associated Diagnosis Comme nts TRANSFUSE RED Routine 02/10/2017 1:30 Myeloproliferative BLOOD CELL UNIT PM CDT disorder (H) BLOOD COMPONENT Routine 02/10/2017 12:01 Myeloproliferative Re sults for this PM CDT disorder (H) procedure are i n the results section. ABO/RH TYPE AND STAT 02/10/2017 12:01 Myeloproliferative Re sults for this SCREEN PM CDT disorder (H) procedure are i n the results section. documented in this encounter Results Transfuse red blood cell unit (02/10/2017 3:20 PM CDT) Guru Antony MD IP NURSING BLOOD ADMINISTRAT ON Blood component (02/10/2017 12:01 PM CDT) [facility] Method Time Signature Unit Number [id number] [facility] Blood Red Blood [facility] Component Cells [facility] Red[facility] 00 [facility] Status of Released to [facility] Unit care unit [facility] Blood Product [id number] [facility] Unit Status ISS [facility] Specimen Anatomical Collection Method Collection Time Receive d Time (Source) Location / / Volume Laterality 02/10/2017 12:01 02/10/2017 PM CDT 12:34 PM CDT Guru Antony MD LABORATORY Performing Organization Address City/State/ZIP Code Phon e Number M [facility] [address] [address] [facility] [address] [address], [place] [phone] ABO/Rh type and screen (02/10/2017 12:01 PM CDT) [facility] gist Method Time Signature Units Ordered 1 [facility] ABO A [facility] RH(D) Pos [facility] Antibody Neg [facility] Screen [facility] Test Valid [facility] Only At [facility] Specimen 02/13/2017 [facility] Expires [facility] Crossmatch Red Blood [facility] Cells [facility] Specimen Anatomical Collection Method Collection Time Receive d Time (Source) Location / / Volume Laterality Blood specimen 02/10/2017 12:01 7 (specimen) PM CDT 12:34 PM CDT Guru Antony MD LAB - BLOOD BANK TEST ORDER Performing Organization Address City/State/ZIP Code Phon e Number M [facility] [address] [address] [facility] [address] [address], [place] [phone] documented in this encounter Visit Diagnoses Diagnosis 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
--- OUTSIDE RECORDS SUMMARY | 2022-05-02 12:22 | XMS_ITS | Encounter Summary ---
:1970 Author Organization [place] Address [address] [place] [address]. [place] [address] Care Team Providers Name Role Phone Clinic, [facility] Primary Care Provider [phone] Carolann Macias MD Unavailable Encounter Details Date Type Department Care Team Description 02/10/2017 Hospital Encounter M [facility] Félix Antony MD [facility] [place] [facility] [address] [facility] [place] [address] [facility] [phone] [place] [phone] (Wo rk) Social History Tobacco [...] on filedocumented in this encounter Care Teams Mechanic Chief Relationship Specialty Start Date End Date Clinic, [facility] PCP - General 12/13/15 09/29/[address] [place] [id number] [place] [address] Carolann Macias MD BMT Physician Internal Medicine 01/09/16 09/29/[address] [place] [address] [address] [place], [place] [address] documented as of this encounter
--- OUTSIDE RECORDS SUMMARY | 2022-05-02 12:22 | XMS_ITS | Encounter Summary ---
:1970 Author Organization [facility] Address [address] [place] [address] Care Team Providers Name Role Phone Clinic, [facility] [address] Primary Care Provider [phone] [phone] Reason for Visit Reason Comments Other Encounter Details Date Type Department Care Team Description 12/27/2015 Emergency [facility] Mary Ann Hobson Anemia due to other cause; [facility] Emergency Dep t MD Jennifer Myelofibrosis (H) [address] [facility] [place] [address] [facility] [phone] [place], [place] [address] (Wo rk) Social History [...] Sign Reading Time Taken Comments Blood Pressure 146/84 12/27/2015 4:45 PM CDT Pulse 74 12/27/2015 3:36 PM CDT Temperature 36.7 ??C (98 ??F) 12/27/2015 4:45 PM CDT Respiratory Rate 16 12/27/2015 3:36 PM CDT Oxygen Saturation 93% 12/27/2015 4:45 PM CDT Inhaled Oxygen Concentration - - Weight 126.1 kg (278 lb) 12/27/2015 11:47 AM CDT Height 172.7 cm (5' 7.99) 12/27/2015 11:47 AM CDT Body Mass Index 42.28 12/27/2015 11:47 AM CDT documented in this encounter Discharge Instructions Discharge Mary Ann Sullivan MD - 12/27/2015 2:15 PM CDT Images from the original note were not included. Anemia Anemia is a condition that occurs when your body does not have enough healthy red blood cells (RBCs). Your RBCs are the parts of your blood that carry oxygen throughout your body. A protein called hemoglobin allows your RBCs to absorb and release oxygen. Without enough RBCs or hemoglobin, your body doesn't get enough oxygen. Symptoms of anemia may then occur. Symptoms of anemia Some people with anemia have no symptoms. But most people have symptoms that range from mild to severe. These can include: ?? Tiredness (fatigue) ?? Weakness ?? Pale skin ?? Shortness of breath ?? Dizziness or fainting ?? Rapid heartbeat ?? Trouble doing normal amounts of activity ?? Jaundice (yellowing of your eyes, skin, or mouth; dark urine) Causes of anemia Anemia can occur when your body: ?? Loses too much blood ?? Does not make enough RBCs ?? Destroys your RBCs at a faster rate than it can replace them ?? Does not make a normal amount of hemoglobin in your RBCs These problems can occur for many reasons, including: ?? A condition that you are born with (congenital or inherited). This includes sickle cell disease or thalassemia. ?? Heavy bleeding for any reason, including injury, surgery, childbirth, or even heavy menstrual periods. ?? Being low in certain nutrients, such as iron, folate, or vitamin B12. This may be due to poor diet. Also, a condition like celiac disease or Crohn's disease can cause poor absorption of these nutrients ?? Certain chronic conditions like diabetes, arthritis, or kidney disease. ?? Certain chronic infections like tuberculosis or HIV. ?? Exposure to certain medications, such as those used for chemotherapy. There are different types of anemia. Your doctor can tell you more about the type of anemia you haveand what may have caused it. Diagnosing anemia To diagnose anemia, your doctor gives you blood tests. These can include: ?? Complete blood cell count (CBC). This test measures the amounts of the different types of blood cells. ?? Blood smear. This test checks the size and shape of your blood cells. To perform the test, your doctor views a drop of your blood under a microscope. Your doctor uses a stain to make the blood cellseasier to see. ?? Iron studies. These tests measure the amount of iron in your blood. Your body needs iron to make hemoglobin in your RBCs. ?? Vitamin B12 and folate studies. These tests check for some of the components that help give RBCs a normal size and shape. ?? Reticulocyte count. This test measures the amount of new RBCs that your bone marrow makes. ?? Hemoglobin electrophoresis. This test checks for problems with your hemoglobin in RBCs. Treating anemia Treatment for anemia is based on the type of anemia, its cause, and the severity of your symptoms. Treatments may include: ?? Diet changes. This involves increasing the amount of certain nutrients in your diet, such as iron, vitamin B12, or folate. Your doctor may also prescribe nutrient supplements. ?? Medications. Certain medications treat the cause of your anemia. Others help build new RBCs or relieve symptoms. If a medication is the cause of your anemia, you may need to stop or change it. ?? Blood transfusions. Replacing some of your blood can increase the number of healthy RBCs in your body. ?? Surgery. In some cases, your doctor can do surgery to treat the underlying cause of anemia. If you need surgery, your doctor will explain the procedure and outline the risks and benefits for you. Long-term concerns If you have a certain type of anemia, you can expect a full recovery after treatment. If you have other types of anemia (especially a type you're born with), you will need to manage it for life. Your doctor can tell you more. ?? [phone] [employer]. [address] [place] [address]. All rights reserved. This information is not intended as a substitute for professional medical care. Always follow your healthcare professional's instructions. documented in this encounter Medications at Time [...] states experimental) documented as of this encounter ED Notes Verena Augustin RN - 12/27/2015 5:07 PM CDT Pt infusions complete. Feeling well. Awaiting MD for discharge. Verena Augustin RN - 12/27/2015 3:12 PM CDT Pt ambulated to the bathroom. 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 The patient was referred here tot ED by Dr. Hu from [facility] for a blood transfusion as her hemoglobin on Friday12/25/15 was 6.7. She was seen here on 12/13/2015 and her hemoglobin was 6.7, and she was given a blood transfusion. Since her blood transfusion she has been experiencing weakness, shortness of breath, and nausea. She denies active bleeding. Reason for additional transfusion is that she did not appropriately increment after the last transfusion. She denies active bleeding. Allergies: No known drug allergies?? Medications:? Morphine sulfate Jakafi Past Medical History:? Myelofibrosis Past Surgical History:? Tonsillectomy Myringotomies Stitches in finger Biopsy bone marrow, bone specimen, needle/trocar Family History:? History reviewed. No pertinent family history.? Social History: Marital Status:? Smoking status: Former smoker Alcohol use: Yes Review of Systems Constitutional: Positive for fatigue. HENT: Negative for nosebleeds. Respiratory: Positive for shortness of breath. Gastrointestinal: Positive for nausea. Negative for blood in stool and anal bleeding. All other systems reviewed and are negative. Physical Exam First Vitals: BP: 157/85 mmHg Pulse: 91 Heart Rate: 91 Temp: 98.5 ??F (36.9 ??C) Resp: 20 Height: 172.7 cm (5' 7.99) Weight: 126.1 kg (278 lb) SpO2: 95 % Physical Exam Eyes: Sclera white; Pupils are equal and round; conjunctiva pale ENT: External ears and nares normal CV: Regular rate and rhythm, No murmur Resp: Breath sounds clear and equal bilaterally GI: Abdomen is soft, non-tender, non-distended MS: Moves all extremities Skin: Warm and dry Neuro: Speech is normal and fluent. No apparent deficit. Emergency Department Course Laboratory: Laboratory findings were communicated with the patient who voiced understanding of the findings. Hemoglobin:7.5 (L) Type and screen:ABO A, PH Positive, Antibody negative Interventions: 1156 Zofran 4 mg PO Two units of packed red blood cell. Emergency Department Course: Nursing notes and vitals reviewed. I performed an exam of the patient as documented above. IV was inserted and blood was drawn for laboratory testing, results above. The patient is signed out to my Partner Dr. Anderson pending blood transfusion. Impression & Plan Medical Decision Making: Jennifer Dobbs is a 45 year old female who presents to the emergency department today from oncology clinic due to failure to increment after her last blood transfusion. With known splenomegaly this maybe due to sequestration. She is not having any symptoms of active bleeding. Two units were ordered by transfusion as this is what was recommended for her. Her hemoglobin was rechecked today, and is 7.5; however, this still was not a appropriate elevation after her last blood transfusion, and she will continue to get the two units. She consented for this and my partner will be monitoring her throughout the transfusion to make sure she does not have complications. Assuming no complication she can be discharged and follow up with her oncologist as scheduled. Diagnosis: 1. (D64.89) Anemia due to other cause 2. (D75.81) Myelofibrosis (H) Scribe Disclosure: I, Bryson Gonzales, am serving as a scribe at 12:07 PM on 12/27/2015 to document services personallyperformed by Mary Ann Hobson MD, based on my observations and the provider's statements to me. 12/27/2015 [facility] EMERGENCY DEPARTMENT Mary Ann Hobson MD 12/28/15 0621 Lisa Flores RN - 12/27/2015 11:51 AM CDT Patient is referred to the ED for a blood transfusion by Dr. Hu, [facility]. Patient's hemaglobin on 12/13/2015 was 6.7 Patient is currently being treated for mylofibrosis with spleen enlargement. Patient also c/o nausea. ABCs intact. documented in this encounter Plan of Treatment Not on filedocumented as of this encounter Procedures Procedure Name Priority Date/Time Associated Comments Diagnosis TRANSFUSE RED BLOOD STAT 12/27/2015 3:19 PM CELL UNIT CDT TRANSFUSE RED BLOOD STAT 12/27/2015 1:30 PM CELL UNIT CDT BLOOD COMPONENT Routine 12/27/2015 12:23 PM Anemia due to othe r Results for this CDT cause procedure are i n the results section. BLOOD COMPONENT Routine 12/27/2015 12:23 PM Anemia due to othe r Results for this CDT cause procedure are i n the results section. HEMOGLOBIN STAT 12/27/2015 12:23 PM Results for this CDT procedure are i n the results section. ABO/RH TYPE AND STAT 12/27/2015 12:23 PM Resul ts for this SCREEN CDT procedure are i n the results section. documented in this encounter Results Transfuse red blood cell unit (12/27/2015 5:15 PM CDT) Mary Ann Hobson MD IP NURSING BLOOD ADMINISTRAT ON Transfuse red blood cell unit (12/27/2015 4:59 PM CDT) Mary Ann Hobson MD IP NURSING BLOOD ADMINISTRAT ON Blood component (12/27/2015 12:23 PM CDT) [facility] [employer] Method Time Signature Unit Number [id number] [facility] Blood Red Blood SPANGLE Component [facility] Reduced Division 00 [facility] Status of Released to [facility] care [facility] Blood Product [id number] [facility] Unit Status [facility] Specimen Anatomical Collection Method Collection Time Receive d Time (Source) Location / / Volume Laterality 12/27/2015 12:23 12/27/2015 PM CDT 12:29 PM CDT Mary Ann Hobson MD LABORATORY Performing Organization Address City/[facility]/ZIP Code Phon e Number M [facility] [address], [place] [address] [facility] [address] [place], [place] [address], [facility] [phone] Blood component (12/27/2015 12:23 PM CDT) [facility] Method Time Signature Unit Number [id number] [facility] Blood Red Blood [facility] Reduced Division 00 [facility] Status of Released to [facility] Blood Product [id number] [facility] Unit Status [facility] Specimen Anatomical Collection Method Collection Time Receive d Time (Source) Location / / Volume Laterality 12/27/2015 12:23 12/27/2015 PM CDT 12:29 PM CDT Mary Ann Hobson MD LABORATORY Performing Organization Address City/[facility]/ZIP Code Phon e Number M [facility] [address], [place] [address] [facility] [address] [place], [place] [address], [facility] [phone] ABO/Rh type and screen (12/27/2015 12:23 PM CDT) Patholo gist Method Time Signature Units Ordered 2 [facility] ABO A [facility] RH(D) Pos [facility] Antibody Neg SPANGLE Screen [facility] Test Valid [facility] Only At [facility] Specimen 12/30/2015 [facility] Red Blood SPANGLE Cells [facility] Specimen Anatomical Collection Method Collection Time Receive d Time (Source) Location / / Volume Laterality Blood specimen 12/27/2015 12:23 6 (specimen) PM CDT 12:29 PM CDT Mary nAn Hobson MD LAB - BLOOD BANK TEST ORDER Performing Organization Address City/[facility] Phon e Number M [facility] [address], [place] [address] [place] [address] [place], [place] [address], [facility] [phone] (ABNORMAL) Hemoglobin (12/27/2015 12:23 PM CDT) P athologist Signature Hemoglobin 7.5 (L) 11.7 - 15.7 SPANGLE g/dL [facility] Specimen Anatomical Collection Method Collection Time Receive d Time (Source) Location / / Volume Laterality Blood specimen 12/27/2015 12:23 6 (specimen) PM CDT 12:29 PM CDT Mary Ann Hobson MD LAB - BLOOD ORDERABLES Performing Organization Address City/[facility] Phon e Number M [facility] [address], [place] [address] [facility] [address] [place], [place] [address], [facility] [phone] documented in this encounter Visit Diagnoses Diagnosis Anemia due to other cause Myelofibrosis (H) Myelofibrosis documented in this encounter Administered Medications Inactive Administered Medications - up to 3 most recent administrations Medication Order MAR Action Action Date Dose Rate Site ondansetron (ZOFRAN-ODT) Given 12/27/2015 11:56 AM CDT 4 mg disintegrating tablet 4 mg 4 mg, Oral, ONCE, On Fri12/27/15 at 1156, For 1 dose, With dry hands, peel back foil backing and gently remove tablet; do not push oral disintegrating tablet through foil backing; administer immediately on tongue and oral disintegrating tablet dissolves in seconds; then swallow with saliva; liquid not required. documented in this encounter Active and Recently Administered Medications Times are shown in CDT. Scheduled Medication Order 12/25/2015 12/26/2015 12/27/2015 ondansetron (ZOFRAN-ODT) disintegrating tablet 4 mg (COMPLETED) 1156 (Given - Provider: Lisa Flores RN) 4 mg, Oral, ONCE, 12/27/15 at 1156, F or 1 dose, With dry hands, peel back foil backing and gently remove tablet; do not push oral disintegrating tablet through foil backing; administer immediately on tongue and oral disintegrating tablet d issolves in seconds; then swallow with saliva; liquid not required. documented in this encounter Care Teams Bunch Breaker Machine Operator Relationship Specialty Start Date End Date [facility], [facility] [address] PCP - General 12/13/15 09/29/17 [address] [place] [address] documented as of this encounter
--- OUTSIDE RECORDS SUMMARY | 2022-05-02 12:22 | XMS_ITS | Encounter Summary ---
:1970 Author Organization [facility] Address [address] [place] [address] Care Team Providers Name Role Phone [facility], [facility] Primary Care Provider +1 [phone] Carolann Macias MD Unavailable Reason for Visit Reason Onset Date Comments Erroneous encounter-disregard 02/12/2016 Outpatient (Routine) - Closed Specialty Diagnoses / Procedures Referred By Contact Refer red To Contact Blood and Marrow Diagnoses new eval consult(MPD/MFIB) Carolann Macias Leary, Eleanor, Transplant Procedures [facility] BMT SOCIAL WORK WITH ROOM MD KNIGHT [address] [place] [address] Phone: [phone] [place] [address] Referral ID Status Reason Start Date Expiration Date Visits Requ ested Visits Authorized [id number] Closed 01/30/2016 01/29/2017 1 1 Encounter Details Date Type Department Care Team Description 01/30/2016 [facility] Maty Macias MD [address] [facility] [address] [place], [place] [id number] [facility]/Nurse Blood and Marrow Francesca Rojas LICSW encounter-disregard Visit Transplant Program [address] [address] Social History Tobacco Use Types Packs/Day Years Used Date Smoking Tobacco: Former Cigarettes Quit : 09/27/2012 Smokeless Tobacco: Never Comments: quit September 27, 2012 Alcohol Use Standard Drinks/Week Comments Yes 0 (1 standard drink = 0.6 oz pure alcoho l) 1 drink per week Sex Assigned at Date Recorded Not on file documented as of this encounter Progress Notes Malinda Pickard RN - 02/12/2016 3:35 PM CDT This encounter was opened in error. Please disregard. documented in this encounter Plan of Treatment Not on filedocumented as of this encounter Visit Diagnoses Diagnosis ERRONEOUS ENCOUNTER--DISREGARD - Primary documented in this encounter Care Teams Shoes Salesperson Relationship Specialty Start Date End Date [facility], [facility] PCP - General 12/13/15 09/29/[id number] [place] [address] Carolann Macias MD [facility] Physician Internal Medicine 01/09/16 09/29/[address] [place] [address] [address] [place] [address] documented as of this encounter
--- OUTSIDE RECORDS SUMMARY | 2022-05-02 12:22 | XMS_ITS | Encounter Summary ---
:1970 Author Organization [facility] Address [address] [place] [address] Care Team Providers Name Role Phone [facility], [facility] Primary Care Provider [phone] [phone] Carolann Macias MD Unavailable Reason for Visit Reason Comments Blood Transfusion Encounter Details Date Type Department Care Team Description 07/04/2017 Infusion Therapy [facility] Edin Hu, Myel oproliferative Visit Cancer Center MD disorder (H) (Primary Dx) [facility] ONCOLOGY [facility] HEMATOLOGY [id number] [place] [address] [address] [place] [phone] Social History Tobacco Use Types Packs/Day Years [...] Sign Reading Time Taken Comments Blood Pressure 135/75 07/04/2017 9:55 AM TRANSPORTATION REFRIGERATION TECHNICIAN Pulse 78 07/04/2017 9:55 AM TRANSPORTATION REFRIGERATION TECHNICIAN Temperature 36.5 ??C (97.7 ??F) 07/04/2017 9:55 AM TRANSPORTATION REFRIGERATION TECHNICIAN Respiratory Rate 18 07/04/2017 9:55 AM TRANSPORTATION REFRIGERATION TECHNICIAN Oxygen Saturation 97% 07/04/2017 8:24 AM TRANSPORTATION REFRIGERATION TECHNICIAN Inhaled Oxygen Concentration - - Weight - - Height - - Body Mass Index - - documented in this encounter Progress Notes Yissel Nguyen RN - 07/04/2017 8:00 AM CST Infusion Nursing Note: Jennifer Dobbs presents today for 1 unit RBCs. Patient seen by provider today: No College Coach present during visit today: Not Applicable. Note: tolerated blood well. Denies dizziness post infusion. Intravenous Access: Peripheral IV placed. Treatment Conditions: Blood transfusion consent signed today. hgb 7.8. Post Infusion Assessment: Patient tolerated infusion without incident. Site patent and intact, free from redness, edema or discomfort. Access discontinued per protocol. Discharge Plan: Discharge instructions reviewed with: Patient. Patient and/or family verbalized understanding of discharge instructions and all questions answered. Patient discharged in stable condition accompanied by: sister. Departure Mode: Ambulatory. Yissel Nguyen RN SPORTATION REFRIGERATION TECHNICIAN documented in this encounter Plan of Treatment Not on filedocumented as of this encounter Procedures Procedure Name Priority Date/Time Associated Diagnosis Comme nts TRANSFUSE RED BLOOD Routine 07/04/2017 8:34 AM Myeloproliferat otoniel disorder CELL UNIT TRANSPORTATION REFRIGERATION TECHNICIAN (H) documented in this encounter Results Transfuse red blood cell unit (07/04/2017 10:29 AM TRANSPORTATION REFRIGERATION TECHNICIAN) Edin Hu MD IP NURSING BLOOD ADMINISTRAT ON Transfuse red blood cell unit (07/04/2017 10:29 AM TRANSPORTATION REFRIGERATION TECHNICIAN) Edin Hu MD IP NURSING BLOOD ADMINISTRAT ON ABO/Rh type and screen (07/03/2017 6:01 PM TRANSPORTATION REFRIGERATION TECHNICIAN) [employer] Method Time Signature Units Ordered 1 07/05/2017 [facility] 2:06 PM [facility] ABO A 07/03/2017 [facility] 7:16 PM [facility] RH(D) Pos [facility] Antibody Neg 07/03/2017 [facility] Screen 7:16 PM [facility] Test Valid [place] 07/03/2017 [facility] Only At [facility] 7:18 PM [facility] Specimen 07/06/2017 07/03/2017 [facility] Expires 7:18 PM [facility] Specimen Anatomical Collection Method Collection Time Receive d Time (Source) Location / / Volume Laterality Blood specimen 07/03/2017 6:01 PM 017 6:05 (specimen) TRANSPORTATION REFRIGERATION TECHNICIAN PM TRANSPORTATION REFRIGERATION TECHNICIAN Edin Hu MD LAB - BLOOD BANK TEST ORDER Performing Organization Address City/State/ZIP Code Phon e Number M [facility] [address] [place], [place] [address] [facility] [address] [place], [place] [address] [facility] [phone] documented in this encounter Visit Diagnoses Diagnosis 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
--- OUTSIDE RECORDS SUMMARY | 2022-05-02 12:22 | XMS_ITS | Encounter Summary ---
:1970 Author Organization [place] Address [address] [place] [address] Care Team Providers Name Role Phone [place], [facility] Primary Care Provider [phone] Carolann Macias MD Unavailable Encounter Details Date Type Department Care Team Description 02/10/2017 Orders Only [facility] Cancer Khushbu Antony MD [facility] ONCOLOGY HEMATOLOGY [facility] Medical Ctr [place] [address] [place] [address] [facility] [address] [place] [address] [phone] Social History Tobacco Use Types Packs/Day Years [...] on filedocumented in this encounter Care Teams Resource Specialist Teacher Relationship Specialty Start Date End Date [facility] PCP - General 12/13/15 09/29/[address] [place] [id number] [place] [address] Carolann Macias MD [facility] Physician Internal Medicine 01/09/16 09/29/[address] [place] [address] [place] [id number] documented as of this encounter
--- OUTSIDE RECORDS SUMMARY | 2022-05-02 12:22 | XMS_ITS | Encounter Summary ---
:1970 Author Organization [facility] Address [address] [place] [address] Care Team Providers Name Role Phone No Ref-Primary, Physician Primary Care Provider [phone] Reason for Visit Auth/Cert Specialty Diagnoses / Procedures Referred By Contact Refer red To Contact Surgery Diagnoses up Rh Periop Services Procedures BIOPSY BONE MARROW [address] [place], [place] [address] Phone: Fax: Referral ID Status Reason Start Date Expiration Date Visits Requ ested Visits Authorized [id number] 1 1 Encounter Details Date Type Department Care Team Description 09/14/2015 Surgery [facility] Paolo Purcell Ma rrow Biopsy, [place] [facility] henri Scott MD Left Posterior iliac [address] [place], [place] [phone] Surgery Details Date/Time Status Location OR Service Patient Case Case Traum a Class Class Type Case? 09/14/15 9:20 AM Posted [facility] OR OR 02 Pathology Same Day Surgery Panel 1 Procedure LRB Anes Op Region Wound Class Commen ts Bone Marrow Biopsy, Left Conscious Sedation Pelvis I-Clean Bone Marrow Biopsy, Left Posterior iliac Left Posterior Crest iliac Crest Surgeon Surgeon Role Service Panel Paolo Purcell MD Primary Pathology 1 Special Needs 5'7 278# in H & P documented in this encounter Social History Tobacco [...] Sign Reading Time Taken Comments Blood Pressure 116/76 09/14/2015 10:20 AM [employer] Pulse 81 09/14/2015 8:01 AM [employer] Temperature 36.2 ??C (97.1 ??F) 09/14/2015 10:20 AM [employer] Respiratory Rate 12 09/14/2015 10:20 AM [employer] Oxygen Saturation 97% 09/14/2015 10:20 AM [employer] Inhaled Oxygen Concentration - - Weight 126.9 kg (279 lb 12.2 oz) 09/14/2015 8:01 AM [employer] Height 170.2 cm (5' 7) 09/14/2015 8:01 AM [employer] Body Mass Index 43.82 09/14/2015 8:01 AM [employer] documented in this encounter Discharge Instructions Discharge InstructionsSophie Restrepo RN - 09/14/2015 11:34 AM CST GENERAL ANESTHESIA OR SEDATION ADULT DISCHARGE INSTRUCTIONS SPECIAL PRECAUTIONS FOR 24 HOURS AFTER SURGERY IT IS NOT UNUSUAL TO FEEL LIGHT-HEADED OR FAINT, UP TO 24 HOURS AFTER SURGERY OR WHILE TAKING PAIN MEDICATION. IF YOU HAVE THESE SYMPTOMS; SIT FOR A FEW MINUTES BEFORE STANDING AND HAVE SOMEONE ASSIST YOU WHEN YOU GET UP TO WALK OR USE THE BATHROOM. YOU SHOULD REST AND RELAX FOR THE NEXT 24 HOURS AND YOU MUST MAKE ARRANGEMENTS TO HAVE SOMEONE STAY WITH YOU FOR AT LEAST 24 HOURS AFTER YOUR DISCHARGE. AVOID HAZARDOUS AND STRENUOUS ACTIVITIES. DO NOTMAKE IMPORTANT DECISIONS FOR [address] ANY VEHICLE OR OPERATE MECHANICAL EQUIPMENT FOR 24 HOURS FOLLOWING THE END OF YOUR SURGERY. EVEN THOUGH YOU MAY FEEL NORMAL, YOUR REACTIONS MAY BE AFFECTED BY THE MEDICATION YOU HAVE RECEIVED. DO NOT DRINK ALCOHOLIC BEVERAGES FOR 24 HOURS FOLLOWING YOUR SURGERY. DRINK CLEAR LIQUIDS (APPLE JUICE, JUAREZ KATI, 7-UP, BROTH, ETC.). PROGRESS TO YOUR REGULAR DIET YOU FEEL ABLE. YOU MAY HAVE A DRY MOUTH, A SORE THROAT, MUSCLES ACHES OR TROUBLE SLEEPING. THESE SHOULD GO AWAY AFTER 24 HOURS. CALL YOUR DOCTOR FOR ANY OF THE FOLLOWING: SIGNS OF INFECTION (FEVER, GROWING TENDERNESS AT THE SURGERY SITE, A LARGE AMOUNT OF DRAINAGE OR BLEEDING, SEVERE PAIN, FOUL-SMELLING DRAINAGE, REDNESS OR SWELLING. IT HAS BEEN OVER 8 TO 10 HOURS SINCE SURGERY AND YOU ARE STILL NOT ABLE TO URINATE (PASS WATER). BONE MARROW BIOPSY DISCHARGE INSTRUCTIONS DRS. Beck PURCELL, Freddy CARVER & Patrice SYKES HOW SHOULD I CARE FOR MYSELF AFTERWARD? If you have had medicine to help you relax: 1. Someone will need to drive you home. 2. You may have a brief period of amnesia. You may not remember the biopsy. 3. You may have a headache, nausea (feeling sick to your stomach) and vomiting (throwing up). 4. Do not drive or use heavy machinery for 24 hours. 5. Do not drink alcohol for 24 hours. 6. You may go back to your normal diet, activities and medicines as you feel able. Whether or not you had medicine to help you relax: 1. Keep the bandage dry and in place for 24 hours. After that, you may remove it and take a shower. You may see some bruising at the needle site. 2. Bleeding is rare. If the amount of blood is larger than the size of a quarter, lie on the floor for 30 minutes to put pressure on the needle site. If you are still bleeding after that, call your doctor. 3. Infection is rare. If you have signs of infection, call your doctor or clinic at once. Symptoms include: - redness, pain, warmth or swelling at the site - a fever of 100.5 degrees F or higher, taken under the tongue. WHEN WILL I GET MY RESULTS? In most cases, your doctor will have the results within 72 hours. [employer] documented in this encounter Medications at Time of Discharge Medication Sig Dispensed Refills Start Date End Date oxyCODONE (ROXICODONE) 5 Take 1-2 tablets 30 tablet 0 08/28 MG immediate release (5-10 mg) by mouth tablet every 6 hours as needed for moderate to severe pain senna-docusate Take 1 tablet by 60 tablet 1 08/28/2015 (SENOKOT-S;PERICOLACE) mouth 2 times daily 8.6-50 MG per tablet Ibuprofen (ADVIL PO) Take 400 mg by 0 12/13/2015 mouth 4 times daily ondansetron (ZOFRAN ODT) 4 Take 1-2 tablets 30 tablet 0 02/04/2018 MG disintegrating tablet (4-8 mg) by mouth every 8 hours as needed for nausea documented as of this encounter H&P Notes Sarah Natarajan - 09/13/2015 10:24 AM CST This note is for the purpose of making the H&P performed in clinic within the last 30 days available in the hospital surgical encounter. [employer] Source Note - Michelle Washington MD - 08/28/2015 10:09 AM [employer] History Chief Complaint: Flank Pain HPI Jennifer Mendez is a 45 year old female who presents with left flank pain. Jennifer complains of severe left flank pain for the past 2 weeks and feeling bloated as well. She thought she was constipated so she took Laxative 4 days ago, and later had a BM with mild relief of her pain. However, the pain reoccurred shortly after, though she has been having normal BM. She also complains of some slight nausea when the pain becomes severe. She took some Tylenol without relief so she stopped taking it. She denies any urinary symptoms, fever, chills, vomiting, diarrhea, or any other symptoms. No history of abdominal surgery. Allergies: No Known Drug Allergies Medications: The patient is not currently taking any prescribed medications. Past Medical History: History reviewed. No pertinent past medical history. Past Surgical History: History reviewed. No pertinent past surgical history. Family History: History reviewed. No pertinent family history. Social History: Smoking status: Former Alcohol use: Yes Marital status: Accompanied by: Review of Systems Constitutional: Negative for fever and chills. Gastrointestinal: Positive for nausea. Negative for vomiting and diarrhea. Genitourinary: Positive for flank pain. Negative for dysuria, frequency and hematuria. All other systems reviewed and are negative. Physical Exam First Vitals: BP: 126/88 mmHg Pulse: 85 Temp: 98.2 ??F (36.8 ??C) Resp: 18 Height: 170.2 cm (5' 7) Weight: 126.1 kg (278 lb) SpO2: 100 % Physical Exam General: Well-nourished, appears to be in pain, clutching left side Eyes: PERRL, conjunctivae pink no scleral icterus or conjunctival injection ENT: Moist mucus membranes, posterior oropharynx clear without erythema or exudates Respiratory: Lungs clear to auscultation bilaterally, no crackles/rubs/wheezes. Good air movement CV: Normal rate and rhythm, no murmurs/rubs/gallops GI: Abdomen soft and non-distended. Normoactive BS. +Left mid to lower abdominal/side tenderness, noguarding or rebound. Skin: Warm, dry. No rashes or petechiae, no zoster rash Musculoskeletal: No peripheral edema or calf tenderness. No midline back TTP. No flank TTP. Neuro: Alert and oriented to person/place/time Psychiatric: Normal affect Emergency Department Course Imaging: CT, abdomen pelvis, w/o contrast: 1. Marked splenomegaly. 2. Cholelithiasis. 3. Remainder of the scan is negative. Report per radiology Radiographic findings were communicated with the patient who voiced understanding of the findings. Laboratory: CBC: HGB 10.6 low, HCT 33.6 low, o/w WNL (WBC 7.2, PLT 323) BMP: glu 101 high, o/w WNL (Creatinine 0.71) Reticulocyte count: % 3.4 high, absolute 127.3 high Lactate Dehydrogenase: pending BCR ABL1 Minor Breakpoint Quant ALL: pending Next Generation Sequencing Oncology: Individual Genes; JAK2: pending Blood Morphology Pathologist: pending Interventions: 1038 - NS bolus 1000 mL IV 1038 - Zofran 4 mg IV 1038, 1106, 1229 - Morphine 4 mg IV Emergency Department Course: Nursing notes and vitals reviewed. I performed an exam of the patient as documented above. IV inserted and blood drawn. The patient was sent for imaging. 1206 - I discussed the case with Dr. Antony, of oncology/hematology. I personally reviewed the laboratory results with the Patient and answered all related questions prior to discharge. Findings and plan explained to the Patient. Patient discharged home with instructions regarding supportive care, medications, and reasons to return. The importance of close follow-up was reviewed. New Prescriptions ONDANSETRON (ZOFRAN ODT) 4 MG DISINTEGRATING TABLET Take 1-2 tablets (4-8 mg) by mouth every 8 hours as needed for nausea OXYCODONE (ROXICODONE) 5 MG IMMEDIATE RELEASE TABLET Take 1-2 tablets (5-10 mg) by mouth every 6 hours as needed for moderate to severe pain SENNA-DOCUSATE (SENOKOT-S;PERICOLACE) 8.6-50 MG PER TABLET Take 1 tablet by mouth 2 times daily Impression & Plan Medical Decision Making: Jennifer Mendez is a 45 year old female who presents with left sided abdominal/flank pain and side painthat have been increasing over the past week. I considered a broad differential, though she does notappear to have UTI. There is no hematuria to suggest kidney stones, but her symptoms are suggestive of that and so CT scan was obtained that shows marked splenomegaly. It shows cholelithiasis which I don???t think is accounting for her symptoms given the wrong location, and there is no sign of cholecystitis on the CT. I suspect that splenomegaly is accounting for her symptoms. We tracey lab and she is mildly anemic and her differential is markedly abnormal. I spoke with Dr. Antony from hematology because I was concerned about hematologic malignancy. He recommended additional lab testing and followup this week with pain medication. I felt that there is low risk for splenic rupture. There is no sign of splenic rupture/infarct on CT scan at this point. He suggested this may be myelofibrosis or myelodysplastic syndrome. I discussed this with the patient and explained to her that she needs to have a bonemarrow biopsy followup with unix manager/oncologist in the clinic for further evaluation and treatment. There is indication for any sort of transfusion at this point and she is vitally stable, so I do think it is okay for her to go home with pain medication. She declined to stay in the hospital in observation unit but she did agree to return should she becomes worse in any way. Diagnosis: ICD-10-CM 1. Flank pain R10.9 2. Abdominal pain, left lateral R10.9 3. Splenomegaly R16.1 4. Anemia, unspecified anemia type D64.9 5. White blood cell abnormality D72.9 Taylor Peters, am serving as a scribe at 10:10 AM on 08/28/2015 to document services personally performed by Dr. Washington based on my observations and the provider's statements to me. 08/28/2015 [facility] EMERGENCY DEPARTMENT Michelle Washington MD 08/29/15 1002 [employer] documented in this encounter Procedure Notes Paolo Purcell MD - 09/14/2015 10:19 AM CST Bone marrow Biopsy. Indication: Leukoerythroblastic blood picture. Evaluate for myeloproliferative marrow disorder. The patient's identification was positively verified. Risks and benefits to include but not limited to pain, bleeding, infection, need for additional biopsies etc, were discussed with the patient. An opportunity for questions and answers was given and questions were answered. Signed informed consent was obtained. The patient was placed in the prone position. Medical staff reconfirmed the patient's name, date of , procedure, and the procedure site marking. The left posterior iliac crest was sterilely prepped in the usual fashion. 6 mL of 1% Lidocaine was used for local anesthesia. Trephine bonemarrow core was obtained from the left posterior iliac crest with an 8 gauge needle x 2. Obtaining the core was difficult due too obesity but 2 small acceptable looking cores were obtained. 30cc bone marrow aspirate was obtained from the left posterior iliac crest with 15 gauge needle. There were no complications and the patient tolerated the procedure well. The biopsy site was cleaned with alcohol and a sterile dressing was placed over the biopsy incision using a pressure bandage. Post-procedure wound care instructions, including routine dressing instructions and analgesia, were given to the patient. [employer] documented in this encounter Nursing Notes Latoya Whitehead RN - 09/14/2015 12:11 PM CST Reviewed follow up with Dr Nolen planned for september 20, information on clinic location and numberreviewed. Pt encouraged to call his clinic for further pain medication refill and for questions regarding results. [employer] documented in this encounter Plan of Treatment Not on filedocumented as of this encounter Procedures Procedure Name Priority Date/Time Associated Comments Diagnosis LEUKEMIA LYMPHOMA Routine 09/14/2015 10:10 AM Res ults for this EVALUATION NON CSF [employer] procedure are in the results section. NEXT GENERATION Routine 09/14/2015 10:10 AM Resul ts for this SEQUENCING ONCOLOGY [employer] procedur e are in the results section. CHROMOSOME ANALYSIS, Routine 09/14/2015 10:10 AM Results for this BONE MARROW, [employer] procedure are i n DIAGNOSIS/RELAPSE the result s section. BONE MARROW BIOPSY Routine 09/14/2015 10:10 AM Re sults for this [employer] procedure are i n the results section. EKG 12-LEAD, TRACING Routine 09/14/2015 9:55 AM R esults for this ONLY [employer] procedure are i n the results section. BIOPSY, BONE MARROW 09/14/2015 9:23 AM massive splenog maureen [employer] Special Needs 5'7 278# in H & P CBC WITH PLATELETS & STAT 09/14/2015 8:25 AM [employer] Results for this procedure DIFFERENTIAL are in the resu lts section. RETICULOCYTE COUNT STAT 09/14/2015 8:25 AM [employer] Results for this procedure are in the resu lts section. 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 This mutation represents one of the most common mutations id entified in CALR [1] and is predicted to encode a mutated CALR protein t hat has loss of the C-terminal amino acid KDEL sequence. Xvc-my-bhmwl i nsertion and/or deletions in exon 9 of the CALR gene are detected in approximately 65-85% of cases of JAK2 and MPL mutation negat otoniel essential thrombocythemia (ET) and primary myelofibrosis (PM F) [2,3]. BCR-ABL1 major and minor transcripts are undetectable (see G 16-1241 and T64-9199). Clinical management should not be based on this assay and in terpretation alone. Correlation with clinical information, histology and other diagnostic tests is indicated. 1. Callie Joel, Lopez CE, Mina LO, et al. Somatic CALR mut ations in myeloproliferative neoplasms with nonmutated JAK2. N Engl J Med. 2013;369(25):2391-405. 2. Alton VILLARREAL, Yeny RL, Kathy T, et al. NXU761 mutations in myeloproliferative and other myeloid disorders: a study of 1 182 patients. Blood. 2006;108(10):3472-6. 3. Jocy T, Lukas H, Yonas , et al. Somatic m utations of calreticulin in myeloproliferative neoplasms. N Engl J Med. 2013;369(25):2379-90. --------- SIGNIFICANT ALTERATIONS --------- Detected Alterations of Known or Potential Pathogenicity: CA LR K385fs Detected Alterations of Uncertain Significance: None --------- GENETIC ALTERATIONS --------- Detected Alterations of Known or Potential Pathogenicity --------- Gene: CALR Alteration: K385fs [id number] Type of Alteration: Insertion - Frameshift Significance: Pathogenic Therapeutic Implications*: None Additional Information: COSMIC: [id number] [http://cancer.warner.ac.uk/cosmic/mutation/overview?ty=3966 056] Allele Frequency: 0.0% dbSNP: N/A References: 1: Andnia H, Dean T, Kayla K, Mary G, Jermaine A, Opal M, Katia A, Wes J, Mana J, Yoni M, Zuri A, Juanito P, [place], M aida T. Distinct clinical characteristics of myeloproliferative neoplasms wit h calreticulin mutations. Haematologica. 2014 Jan;99(7):1184-90. doi: 10.3324/haematol.2014.191500. Epub 2013Dec 14. PubMed PMID: 47435857; PubMed Central PMCID: [id number]. --------- Detected Alterations of Uncertain Significance --------- None --------- Genes with No Detected Alterations of the Amino Acid Sequenc e: --------- JAK2, MPL --------- *Therapeutic Implications: Associated with drug response = related to drug sensitivity or resistance as described in Drug Response section of this report; Potentially relevant clinical trials = gene is related to a trial in the Clinical Trials section of this report COSMIC: Mutation ID in the Catalogue Of Somatic Mutations in Cancer (http://cancer.warner.ac.uk/ [http://cancer.warner.ac.uk/]) Allele Frequency: Allele frequency of the alteration in the [address] [facility] (http://www.1000genomes.org/ [http://www.1000genomes .org/]) dbSNP: RS number of alteration in dbSNP database (http://www.ncbi.nlm.nih.gov/SNP [http://www.ncbi.nlm.nih.go v/SNP]) --------- TEST DETAILS --------- Methodology --------- Genomic DNA is extracted from the sample, and sequencing lara raries are prepared using an amplicon-based target enrichment method on the ScriptPad Array System. The enriched DNA damion latoya are sequenced on an Illumina MiSeq instrument (version 3 chemist internship ry, 300 bp paired end reads). FASTQ files are processed through a [employer] designed bioinformatics pipeline termed Scanindel (Kenney et al. Genome Medicine, 2015), which utilizes Cutadapt for adaptor trimming, BWA-MEM and BLAT mapping algorithms for improved indel detection capability, and a modified Freebayes algorithm for variant calling. The [employer] t call files (vcf) are filtered by a custom R-script to remove sub-thresh old calls with less than 500X coverage and/or minor allele frequency ( MAF) less than thresholds defined for single nucleotide variants (5-10 %) and insertion/deletion variants (1-5%). Clinically relevant muta tions from this filtered variant list are annotated by a pathologist wi [employer] software and reported. The assay bed file and 5% SNV hotspot list are available upon request. Sequenced regions o f the clinically ordered gene set are identified in the table belo w. Gene(NM Reference): Exons covered CALR (NM_004343.3): 9; JAK2 (NM_004972.3): 12,14; MPL (NM_00 5373.1): 10; Less than 500X coverage was achieved in portions of the foll owing exons; additional mutations in these regions cannot be entirely exc luded: None --------- Limitations --------- The validated allele frequency thresholds for reporting posi tive results range from 1% to 10% dependent on the type of mutation as fo llows: 5% for single nucleotide variants of high clinical utility (lis t available upon request); 10% for all other single nucleotide variants; 1% for insertion-deletion mutations > than 3bp, and 5% for insertio n-deletion mutations 3bp or smaller. Therefore, the tumor cell populati on must comprise at least 10-20% of the submitted specimen. Specimen s with borderline tumor cellularity may lead to false negative resu lts. Caution is advised for the interpretation of negative results in the se situations, and correlation with morphology and other labora tory results is recommended to ensure adequate representation of the cell population of interest. --------- Disclaimer --------- This test was developed and its performance characteristics determined by the [facility]. It has not been cleared or approved by the FDA. The laboratory is regulated under CLIA as qualified to perform high-complexity testing. This test is used for clinical purp oses. It should not be regarded as investigational or for research. --------- GenomOn[employer] Disclaimer --------- This report was produced using software licensed by [employer]. [employer] software is designed to be used in clinical ap plications solely as a tool to enhance medical utility and improve oper ational efficiency. The use of [employer] software is not a subst itute for medical judgment and [employer] in no way holds itself ou t as having or providing independent medical judgment or diagnostic serv ices. [employer] is not liable with respect to any treatment or diagnosis made in connection with this report. --------- Electronic Signature --------- Electronically signed by: Alejandro Andrews MD, PhD 09/25/2015 Electronically Signed Out By: Alejandro Andrews M.D., Physicians CPT Codes: A: [id number], [id number], CALRNGSTC2 TESTING LAB LOCATION: [address] [address] COLLECTION SITE: Client: ??[facility] Location: ??[facility] ([place]) Specimen Anatomical Collection Method Collection Time Receive d Time (Source) Location / / Volume Laterality 09/14/2015 10:10 09/15/2015 9:13 AM [employer] AM [employer] Paolo Purcell MD LAB - GENOMICS Performing Organization Address City/State/ZIP Code Phon e Number [place] Leukemia lymphoma evaluation (09/14/2015 10:10 AM [employer]) Component Value Ref Test Analysis Performed At [facility] gist Range Method Time Signature Copath Patient Name: JENNIFER MENDEZ PATH Report MR#: [id number] Specimen #: [id number] Collected: 09/14/2015 10:10 Received: 09/14/2015 16:12 Reported: 09/15/2015 12:33 Ordering Phy(s): PAOLO PURCELL Additional Phy(s): RAFI TAMANNA SPECIMEN(S): Bone marrow, left INTERPRETATION: Bone marrow, left: ? Polytypic B cells ? No aberrant immunophenotype on T cells ? No increase in myeloid blasts and no abnormal myeloid blast population ? See comment COMMENT: There is no immunophenotypic evidence of non-Hodgkin lymphom a, lymphoid leukemia, or acute leukemia. ??Final interpretation requires correlation with morphologic and clinical features. RESULTS: Percentages reported below are based on the total number of CD45 positive viable leukocytes. If applicable, percentage of fernando sma cells is from total viable nucleated cells. 1.9% cells in the blast gate (CD45 dim and low side scatter blast gate). There is no aberrant immunophenotype on the myeloid blasts. 0.7% CD34 positive blasts 1.2% polytypic B cells 6.9% T cells with a CD4:CD8 ratio of 3.4:1. 0.5% NK cells ANTIBODIES: Four- and eight-color analyses are performed for the followi ng markers: CD2, CD3, CD4, CD5, CD7, CD8, CD10, CD13, CD14, CD15, CD19, CD20, CD33, CD34, CD45, CD56, CD117, HLA-DR, and kappa and lambda immuno globulin light chains. Cells are gated to isolate populations (CD45 v ersus side-scatter and forward-scatter versus side-scatter), to ex clude debris (forward-scatter versus side-scatter) and to exclude cell do ublets (forward-scatter height versus forward-scatter width and bertha e-scatter height versus side-scatter width). Forward scatter varies wi th cell size. Side scatter varies with the amount of cytoplasmic gra nules. Intensity for CD45 usually increases as hematolymphoid cells mature. CLINICAL HISTORY: 45 year old female with presented to ED with flank pain, fou nd to have anemia, frequent dacryocytes, leukoerythroblastosis, and mar ked splenomegaly. I have personally reviewed all specimens and/or slides, incl uding the listed special stains, and used them with my medical judgmen t to determine the final diagnosis. Electronically signed out by: Karmen Garcia MD Analyte Specific Reagents are used in many laboratory tests necessary for standard medical care and generally do not require FDA a pproval. This test was developed and its performance characteristics determined by [facility]. ??It has not been cleared or approved by the U .S. Food and Drug Administration. CPT Codes: A: 07319-WZ, 10131-AKQZDHI, 21961-29-HOXL84(11), 76456-81-FU OW59(7), 91523-VBES>15 TESTING LAB LOCATION: [address] [address] COLLECTION SITE: Client: ??[facility] Location: ??RHOR (R) Specimen Anatomical Collection Method Collection Time Receive d Time (Source) Location / / Volume Laterality 09/14/2015 10:10 09/14/2015 4:12 AM SUPERVISOR PICKING [employer]W PM SUPERVISOR PICKING [employer]W Paolo Purcell [facility]ER[facility] Performing Organization Address City/State/ZIP Code Phon e Number COPATH Bone marrow biopsy (09/14/2015 10:10 AM SUPERVISOR PICKING [employer]W) Component Value Ref Test Analysis Performed Pathologis t Range Method Time At [facility] Patient Name: JENNIFER MENDEZ PATH Report MR#: [id number] Specimen #: [id number] Collected: 09/14/2015 Received: 09/14/2015 Reported: 09/18/2015 11:43 Ordering Phy(s): RAFI NOLEN TEST(S): Unilateral Bone Marrow Biopsy and Aspiration, left FINAL DIAGNOSIS: Specimen: Specimen and Procedure: ??Peripheral blood, bone marrow aspi rate, core biopsy, and biopsy touch imprint. Biopsy and Aspiration Site: Left posterior iliac crest. DIAGNOSIS: Bone Marrow Findings: ??Hypercellular marrow with marked fib rosis and 35% ringed sideroblasts. ??No increased blasts or evidence of ac [place] leukemia. See comment and description. Peripheral blood Findings: ??Normochromic normocytic anemia. Leukoerythroblastic blood picture. ??Left shifted granulocyt es and 1% or less circulating blasts. Special Studies: - Immunophenotyping: ?? Reported to show polytypic B cells, no aberrant immunophenotype on T cells, no increase in myeloid blasts, a nd no abnormal myeloid blast population. ??See complete separate r eport IF [id number]. - Cytogenetic Studies: ?? Pending. ??See separate forthcomin g report. - Fluorescence in situ Hybridization: ?? Bcr-abl pending. ?? See separate forthcoming report. - Molecular Studies: ?? MPL and CALR pending. ??See separate forthcoming report(s). COMMENT: The marrow is hypercellular at approximately 95% and there i s marked fibrosis (MF grade 3) and associated osteosclerosis. ??Defin itive subclassification of this myeloid neoplasm is difficult. ??T he myelofibrosis and splenomegaly plus the presence of ringed s ideroblasts suggest a myelodysplastic/myeloproliferative neoplasm. Electronically signed out by: Paolo Purcell M.D. CLINICAL HISTORY: Anemia. ??Leukoerythroblastic blood picture. ??JAK2, Bcr-abl major and minor breakpoints negative. ??Splenomegaly. ??Elevated LDH. BONE MARROW: PERIPHERAL BLOOD DATA Patient Value (Reference Range >18 year old female) 4.9 .......WBC ?? (4.0-11.0 x 10*9/L) 3.42 .......RBC ?? (3.8-5.2 x 10*12/L) 9.2 .......HGB ?? (11.7-15.7 g/dL) 29.9 .......HCT ?? (35.0-47.0 %) 87 .......MCV ?? (78-100fL) 26.9 .......MCH ?? (26.5-33.0 pg) 30.8 .......MCHC ?? (31.5-36.5 g/dL) 21.0 .......RDW ?? (10.0-15.0 %) 219 .......PLT ?? (150-450 x 10*9/L) 4.4 .......Retic ?? (0.5-2.0%) PERIPHERAL BLOOD DIFFERENTIAL (Reference ranges >18 year old female) Percent 87....Neutrophils, segmented and bands ?? (40 - 75) 5....Lymphocytes ?? (20 - 48) 1....Monocytes ?? (0 - 12) 1....Eosinophils ?? (0 - 6) 2....Basophils ?? (0 - 2) 2.... Metamyelocyte 2... Myelocytes Absolute 4.3....Neutrophils, segmented and bands ?(1.6 - 8.3 x 10 *9/L) 0.2....Lymphocytes ?(0.8 - 5.3 x 10*9/L) 0....Monocytes ?(0 -1.3 x 10*9/L) 0....Eosinophils ?(0 - 0.7 x 10*9/L) 0.1....Basophils ?(0 - 0.2 x 10*9/L) PERIPHERAL MORPHOLOGY: ERYTHROCYTES: Appear reduced and show anisopoikilocytosis. ? ?There are scattered elliptocytes, rare fragments, and relatively frequ ent teardrop forms. ??Polychromatophils are present. ??Nucleated red bloo d cells are present (2 per 100 leukocytes). LEUKOCYTES: Granulocytes are left shifted. ??There are circu lating blasts (1% or less) seen on scanning. PLATELETS: There are scattered large and giant platelet form s present. BONE MARROW DATA Percent ? (Reference Ra nge) <1....Perivascular and myelocytes layer ??(1 - 3%) 70.5....Plasma 2....Myeloid - erythroid layer ??(5 - 8%) 27....Red blood cells DIFFERENTIAL: Percent ?? (Reference Range) 0.2....Blasts ?? (0-1%) 51.8....Neutrophils and precursors ??(54-63%) 39.4....Normoblasts ?? (18 - 24%) 5.6....Lymphocytes ?? (8-12%) 1.4....Monocytes ?? (1-1.5%) 1.4....Eosinophils and precursors ??(1-3%) 0.2....Basophils and precursors ??(0-1%) 0....Plasma cells ?? (0-1.5%) ASPIRATE: The aspirate smears are somewhat hemodilute but the ME smear s appear adequate for evaluation for evaluation. ??Blasts do not appe ar increased. Erythropoiesis and granulopoiesis appear complete. ??There is slight dyserythropoiesis with scattered cells showing open chromati n in rare binucleate forms.. The imprint, particle crush/ME preparatio n, and squash preparations show similar features. CLOT SECTION: The clot section is hypocellular and noncontri butory. DECALCIFIED BONE MARROW CORE : The marrow core biopsies are adequate for evaluation. ??The marrow is hypercellular at approximately 95%. ??The cellularity reflex that seen in the aspirate differential. ??Megakaryocytes are atypical, in creased and clustered. ??No blasts infiltrates are identified. ??The bon e appears sclerotic in some areas. ??Reticulin staining with appropria te control shows marked reticulin fibrosis. ??CD34 immunostaining with appropriate control does not show increased blasts. IRON STAINS: Stainable storage iron on core section appears decreased to absent but this may be artifact secondary to decalcification. ??There i s insufficient particles and marrow on the particle crush/ME p reparation and clot preparation to accurately evaluate storage iron. ?? Sideroblastic iron on smear is present and appears increased. ??A populati on of ring sideroblasts is present (35%). CPT Codes: A: 65000-EPMU, 82016-TYPB, 95513-CYAF, 48331-AYZF, 30050-YIQ , 98000-RJBB, 16027-CGQS, 73767-SSICV, 74632-LYQYH, 54742-XCLM S, 15379-JHK, SOH TESTING LAB LOCATION: [facility] [address] [place], [place] ??[address] COLLECTION SITE: Client: ??[facility] Location: ??RHOR (R) Specimen Anatomical Collection Method Collection Time Receive d Time (Source) Location / / Volume Laterality 09/14/2015 10:10 09/14/2015 AM SUPERVISOR PICKING CREW 10:45 AM SUPERVISOR PICKING CREW Rafi Nolen MD [facility] Performing Organization Address City/State/ZIP Code Phon e Number COPATH Chromosome bone marrow (09/14/2015 10:10 AM SUPERVISOR PICKING CREW) Component Value Ref Test Analysis Performed Pathologis t Range Method Time At Signature Copath Patient Name: JENNIFER MENDEZ PATH Report MR#: [id number] Specimen #: [id number] Collected: 09/14/2015 10:10 Received: 09/14/2015 17:05 Reported: 09/23/2015 10:45 Ordering Phy(s): RAFI NOLEN Additional Phy(s): PAOLO PURCELL TEST(S) REQUESTED: A: Bone Marrow Chromosome Analysis B: FISH Interphase SPECIMEN DESCRIPTION: Bone Marrow Aspirate CLINICAL COMMENTS: Anemia, leukoerythroblastic blood, splenomegaly, ?MPD vs. ot her Metaphases analyzed: ? 20 Additional metaphases screened: ?? 0 Metaphases karyotyped: ?3 Banding utilized: ?G-banding/FISH Band resolution: ? < 400 Karyotypically normal cells: ?14 Karyotypically abnormal cells: ? 6 METHODS: Unstimulated, 24 hour culture. Twenty metaphase cells were analyzed by G-banding. ??Additio compa, FISH was performed on an uncultured specimen with [employer] r probe to [id number] (13q14.3) / LAMP1 (13q34) (dual color). 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 No cl onal abnormality was found among the remaining 14 (70%) metaphase s. Consistent with the G-banding findings of deletion involving 13q14, FISH showed 15% of the interphase cells examined to have only one T83M465 signal present. These findings are consistent with the reported pathologic d iagnosis of a myelodysplastic/myeloproliferative neoplasm. Deletion of 1 3q, as seen in this case, is a well documented recurring abnormality in myeloid disorders, including myelodysplastic syndrome and chronic myeloproliferative disorders. ADDITIONAL COMMENTS: Analyte Specific Reagents (ASRs) are used in many laboratory tests necessary for standard medical care and generally do not req uire FDA approval. ??This test was developed and its performance jabier acteristics determined by the [facility], [facility]. ??It has not been cleared or approved by the U.S. Food and Drug Administration. Electronically Signed Out By: Rajani Ferreira M.D., [facility] CPT Codes: A: 43516-QQTIF, 12287-SLLZF, 21643-ABHLYWM, 78199-WZOJKX B: 35109-YYSX, 86326-BHRJF, 78717-CQDIZHN TESTING LAB LOCATION: [facility] [address], [facility] [address] [place] [address] COLLECTION SITE: Client: ??[facility] Location: ??RHPRE (R) Specimen Anatomical Collection Method Collection Time Receive d Time (Source) Location / / Volume Laterality 09/14/2015 10:10 09/14/2015 5:05 AM SUPERVISOR PICKING CREW PM SUPERVISOR PICKING CREW Rafi Gall MD LAB - [facility] Performing Organization Address City/State/ZIP Code Phon e Number COPATH EKG 12-lead, tracing only (09/14/2015 9:55 AM SUPERVISOR PICKING CREW) [facility] Method Time Signature Interpretation ECG Click View RADIOLOGY Image link RESULTS to view waveform and result Specimen (Source) Anatomical Collection Method Collection Time Re ceived Time Location / / Volume Laterality 09/14/2015 9:55 AM SUPERVISOR PICKING CREW Matthew Donnelly MD ECG ORDERABLES Performing Organization Address City/[facility]/ZIP Code Phon e Number RADIOLOGY RESULTS (ABNORMAL) Reticulocyte count (09/14/2015 8:25 AM SUPERVISOR PICKING CREW) Analysis Performed At [facility] logist Time Signature % Retic 4.4 (H) 0.5 - 2.0 [facility] Absolute Retic 150.2 (H) 25 - 95 [place] 10e9/L [facility] Specimen Anatomical Collection Method Collection Time Receive d Time (Source) Location / / Volume Laterality Blood specimen 09/14/2015 8:25 AM 016 8:31 (specimen) SUPERVISOR PICKING CREW AM SUPERVISOR PICKING CREW Paolo Purcell MD LAB - BLOOD ORDERABLES Performing Organization Address City/[facility]/ZIP [facility] Phon e Number [facility] [address] [phone] [facility] [address] [phone] (ABNORMAL) CBC with platelets differential (09/14/2015 8:25 AM SUPERVISOR PICKING CREW) Component Value Ref Test Analysis Performed At [facility] Range Method Time Signature WBC 4.9 4.0 - [place] 11.0 [facility] 10e9/L [facility] RBC Count 3.42 (L) 3.8 - [place] 5.2 [facility] 10e12/L [facility] Hemoglobin 9.2 (L) 11.7 - [place] 15.7 [facility] g/dL [facility] Hematocrit 29.9 (L) 35.0 - [place] 47.0 % [facility] MCV 87 78 - 100 [facility] MCH 26.9 26.5 - [place] 33.0 pg [facility] MCHC 30.8 (L) 31.5 - [place] 36.5 [facility] g/dL HOSPITAL RDW 21.0 (H) 10.0 - [place] 15.0 % [facility] Platelet Count 219 150 - [place] 450 [facility] 10e9/L [facility] Diff Method Manual [place] Differential [facility] % Neutrophils 86.0 % [facility] % Lymphocytes 3.0 % [facility] % Monocytes 2.0 % [facility] % Eosinophils 3.0 % [facility] % Basophils 0.0 % [facility] % Metamyelocytes 2.0 % [facility] % Myelocytes 3.0 % [facility] % Blasts 1.0 % [facility] Nucleated RBCs 1 (H) 0 /100 [facility] Absolute 4.2 1.6 - [place] Neutrophil 8.3 [facility] 10e9/L [facility] Absolute 0.1 (L) 0.8 - [place] Lymphocytes 5.3 [facility] 10e9/L [facility] Absolute 0.1 0.0 - [place] Monocytes 1.3 [facility] 10e9/L [facility] Absolute 0.1 0.0 - [place] Eosinophils 0.7 [facility] 10e9/L [facility] Absolute 0.0 0.0 - [place] Basophils 0.2 [facility] 10e9/L [facility] Absolute 0.1 (H) 0 10e9/L [place] Metamyelocytes [facility] Absolute 0.1 (H) 0 10e9/L [place] [facility] Absolute Blasts 0.0 0 10e9/L [facility] Absolute 0.0 [place] Nucleated RBC [facility] Anisocytosis Moderate [facility] Poikilocytosis Marked [facility] Polychromasia Slight [facility] RBC Fragments Slight [facility] Teardrop Cells Marked [facility] Ovalocytes Marked [facility] Microcytes Present [facility] Platelet Estimate Normal [facility] Specimen Anatomical Collection Method Collection Time Receive d Time (Source) Location / / Volume Laterality Blood specimen 09/14/2015 8:25 AM 016 8:31 (specimen) SUPERVISOR PICKING [employer]W AM SUPERVISOR PICKING CREW Paolo Purcell MD LAB - BLOOD ORDERABLES Performing Organization Address City/State/ZIP Code Phon e Number M [facility] [address] [address] [facility] [address] [phone] documented in this encounter Visit Diagnoses Not on filedocumented in this encounter Administered Medications Inactive Administered Medications - up to 3 most recent administrations Medication Order MAR Action Action Date Dose Rate Site fentaNYL (SUBLIMAZE) injection Given 09/14/2015 11:25 AM SUPERVISOR PICKING [employer]W 50 mcg 25-50 mcg 25-50 mcg, Intravenous, EVERY 15 MIN PRN, other, acute pain while in Phase II, Starting on Aruna 09/14/15 at 1112, MAX cumulative dose = 250 mcg. Use Fentanyl initially, as a short acting agent for acute pain control. If insufficient, or a longer acting agent is needed, begin Morphine or Hydromorphone if ordered., Phase ll fentaNYL (SUBLIMAZE) injection 50 mcg Given 09/14/2015 9:05 AM SUPERVISOR PICKING [employer]W 50 mcg 50 mcg, Intravenous, ONCE, On Aruna 09/14/15 at 0915, For 1 dose, Pre-procedure lidocaine BUFFERED 1 % Given 09/14/2015 10:16 AM 10 mLs Operative Site/Surgical solution [employer]PER[employer] P[employer] Site PRN, Starting on Aruna 09/14/15 at 1016, Intra-procedure oxyCODONE (ROXICODONE) immediate release Given 09/14/2015 11:27 AM SUPER[employer]OR PICKING [employer]W 5 mg tablet 5 mg 5 mg, Oral, EVERY 4 HOURS PRN, moderate to severe pain, Starting on Aruna 09/14/15 at 1120, Phase ll documented in this encounter Active and Recently Administered Medications Times are shown in [employer]. Scheduled Medication Order 09/12/2015 09/13/2015 09/14/2015 fentaNYL (SUBLIMAZE) injection 50 mcg (COMPLETED) 09 (Given - Provider: Elli Cooper RN - Comment: 50 mcg given) 50 mcg, Intravenous, ONCE, Aruna 16 at 0915, For 1 dose, Pre-p rocedure PRN Medication Order 09/12/2015 09/13/2015 09/14/2015 fentaNYL (SUBLIMAZE) injection 25-50 mcg (CANCELED) 112 (Given - Provider: Latoya Whitehead RN) 25-50 mcg, Intravenous, EVERY 15 MIN PRN , Starting Aruna 09/14/15 at 1112, other, acute pain while in Phase II, MAX cumulative dose = 250 mcg. Use Fentanyl initially, as a short acting agent for acute pain control. If insufficient, or a longer ac ting agent is needed, begin Morphine or Hydromorphone if ordered., Phase ll lidocaine BUFFERED 1 % solution (CANCELED) 1016 (Given - Provider: Paolo Purcell MD) PRN, Starting Aruna 09/14/15 at 1016, Intra-procedure oxyCODONE (ROXICODONE) immediate release tablet 5 mg (CANCELED) 1127 (Given - Provider: Latoya Whitehead RN) 5 mg, Oral, EVERY 4 HOURS PRN, moderate to severe pain, Starting Aruna 09/14/15 at 1120, Phase ll documented in this encounter Care Teams Plate Sensitizer Relationship Specialty Start Date End Date No Ref-Primary, Physician PCP - General 09/11/15 12/12/15 documented as of this encounter
--- OUTSIDE RECORDS SUMMARY | 2022-05-02 12:22 | XMS_ITS | Encounter Summary ---
:1970 Author Organization [facility] Address [address] [place] [address]. [place] [address] Care Team Providers Name Role Phone No Ref-Primary, Physician Primary Care Provider [phone] Reason for Visit Auth/Cert Specialty Diagnoses / Procedures Referred By Contact Refer red To Contact Surgery Diagnoses up Rh Periop Services Procedures BIOPSY BONE MARROW [address] [place], [place] [phone] Phone: Fax: Referral ID Status Reason Start Date Expiration Date Visits Requ ested Visits Authorized [id number] 1 1 Encounter Details Date Type Department Care Team Description 09/14/2015 Anesthesia Event [facility] Edin Loera MD [facility] ANESTHESIA [address] [place] [address] PeriOp Services Augustin Robles MD [facility] ANESTHESIA [address] [place] [address] [address] [place] [address] Anesthesia Record Procedure Summary Procedure Name Responsible Anesthesia Start Anesthesia Stop Time Anesthesiologist Time Bone Marrow Biopsy, Edin Loera MD 09/14/15 0930 03/0 09/26 1024 Left Posterior iliac Crest (Left: Pelvis) Events Date Time Event Comment 09/14/2015 0909 0930 An Start 0930 Quick Note Pt chart reviewe d, questions answered, consent obtained. Tx to OR 2, moved to OR table, monitors on and sedated 0934 An Start Data 1011 MD Present 1017 an stop data 1024 An Stop Electronically s igned by Fatuma Andrews on September 14, 2015 10:24 AM Name Total midazolam 1mg/mL 2 mg fentanyl 50mcg/mL 100 mcg propofol 10mg/mL 380 mg LR 1,000 mL Agents Name O2 Blood No blood administrations on file. Lines, Drains, and Airways Type Details Placement Removal Peripheral IV 20 G 09/14/15 0628 by 09/14/15 1200 apurva y Latoya Whitehead, RN Incision/Surgical Site 09/14/15; 1019; Left; 09/14/15 1019 by 1127 by Buttocks; Left Krystina Cormier RN Marks, Kare n S, RN Posterior Iliac Crest; 01/16/19; 1127 documented in this encounter Social History Tobacco Use Types Packs/Day Years Used Date Smoking Tobacco: Former Comments: quit September 27, 2012 Alcohol Use Standard Drinks/Week Comments Yes 0 (1 standard drink = 0.6 oz pure alcoho l) 1 drink per week Sex Assigned at Date Recorded Not on file documented as of this encounter OR Notes Anesthesia Postprocedure Evaluation - Edin Loera MD - 09/14/2015 12:59 PM CST Patient: Jennifer Dobbs BIOPSY BONE MARROW (N/A ) Additional InformationProcedure(s): Left Posterior iliac Crest Diagnosis:massive splenogaly Diagnosis Additional Information: Bone marrow Biopsy. Indication: Leukoerythroblastic blood picture. Anesthesia Type: MAC Note: Anesthesia Post Evaluation Patient location during evaluation: PACU Patient participation: Able to fully participate in evaluation Level of consciousness: awake and alert Pain management: adequate Airway patency: patent Anesthetic complications: no Cardiovascular status: acceptable Respiratory status: acceptable Hydration status: acceptable PONV: none Last vitals: Filed Vitals: 09/14/15 1115 09/14/15 1125 09/14/15 1200 BP: 159/92 149/81 150/85 Pulse: Temp: Resp: 16 SpO2: 98% 98% 98% Electronically Signed By: Edin Loera MD September 14, 2015 12:59 PM TRAY ASSEMBLER Anesthesia Preprocedure Evaluation - Edin Loera MD - 09/14/2015 6:27 AM CST Anesthesia Evaluation . Pt has had prior anesthetic. Type: MAC No history of anesthetic complications ROS/MED HX ENT/Pulmonary: (+)tobacco use, Past use , . . Neurologic: - neg neurologic ROS Cardiovascular: - neg cardiovascular ROS METS/Exercise Tolerance: Hematologic: (+) Anemia, Other Hematologic Disorder-splenomegaly Musculoskeletal: - neg musculoskeletal ROS GI/Hepatic: - neg GI/hepatic ROS Renal/Genitourinary: - ROS Renal section negative Endo: (+) Obesity, . Psychiatric: - neg psychiatric ROS Infectious Disease: - neg infectious disease ROS Malignancy: Other: - neg other ROS Physical Exam Normal systems: cardiovascular, pulmonary and dental Airway Mallampati: II TM distance: >3 FB Neck ROM: full Dental Cardiovascular Pulmonary Anesthesia Plan ASA Score: 2 . Plan for MAC - Anesthetic plan, risks, benefits and alternatives discussed with: patient or printing sales representative. Routine analgesia and antiemetics History & Physical Review History and physical reviewed and following examination; no interval change. . TRAY ASSEMBLER documented in this encounter Miscellaneous Notes Anesthesia Care Transfer Note - Fatuma Andrews APRN CRNA - 09/14/2015 10:23 AM CST Patient: Jennifer Dobbs BIOPSY BONE MARROW (N/A ) Additional [email or web address] Diagnosis: massive splenogaly Diagnosis Additional Information: No value filed. Anesthesia Type: MAC Note: Airway :Room Air Patient transferred to:Phase II Comments: Pt comfortable, VSS, tx to phase 2 room 12, monitors on and report to RN Electronically Signed By: Fatuma Andrews APRN CRNA September 14, 2015 10:23 AM TRAY ASSEMBLER documented in 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 Administered Medications Inactive Administered Medications - up to 3 most recent administrations Medication Order MAR Action Action Date Dose Rate Site fentaNYL (SUBLIMAZE) injection Given 09/14/2015 9:35 AM FOOD TRAY ASSEMBLER 100 mcg PRN, moderate to severe pain, Starting on Aruna 09/14/15 at 0935, Anesthesia Intra-op lactated ringers infusion New Bag 09/14/2015 10:11 AM FOOD TRAY ASSEMBLER Intravenous, CONTINUOUS PRN, Anesthesia Intra-op, Starting on Aruna 09/14/15 at 0854, Until Rauna 09/14/15 at 1024 New Bag 09/14/2015 8:54 AM FOOD TRAY ASSEMBLER midazolam (VERSED) injection Given 09/14/2015 9:30 AM FOOD TRAY ASSEMBLER 2 mg PRN, anxiety, Starting on Aruna 09/14/15 at 0930, Anesthesia Intra-op propofol (DIPRIVAN) injection 10 mg/mL v ial Given 09/14/2015 10:08 AM FOOD TRAY ASSEMBLER 20 mg PRN, Starting on Aruna 09/14/15 at 0937, Anesthesia Intra-op Given 09/14/2015 10:05 AM FOOD TRAY ASSEMBLER 20 mg Given 09/14/2015 10:03 AM FOOD TRAY ASSEMBLER 20 mg documented in this encounter Care Teams Rules Examiner Relationship Specialty Start Date End Date No Ref-Primary, Physician PCP - General 09/11/15 12/12/15 documented as of this encounter
--- OUTSIDE RECORDS SUMMARY | 2022-05-02 12:22 | XMS_ITS | Encounter Summary ---
:1970 Author Organization [facility] Address [address] [place] [id number] Care Team Providers Name Role Phone [facility], [facility] Primary Care Provider [phone] Reason for Visit Reason Comments Fatigue low hemaglobin Encounter Details Date Type Department Care Team Description 12/13/2015 Emergency [facility] Michelle Washington MD [facility] [address] [place] [address] Symptomatic anemia; [facility] Acosta MD [facility] [address] [place], [place] [id number] Myelofibrosis (H) Dept Rosie Blanco, [facility] D[facility] [address] [place] [address] [address] [place] [address] [address] [place] [phone] Social History Tobacco Use Types Packs/Day Years [...] Sign Reading Time Taken Comments Blood Pressure 151/92 12/13/2015 7:31 PM CDT Pulse 82 12/13/2015 6:06 PM CDT Temperature 37.4 ??C (99.3 ??F) 12/13/2015 7:31 PM CDT Respiratory Rate 18 12/13/2015 7:31 PM CDT Oxygen Saturation 97% 12/13/2015 7:31 PM CDT Inhaled Oxygen Concentration - - Weight 128.4 kg (283 lb) 12/13/2015 7:00 PM CDT Height 170.2 cm (5' 7.01) 12/13/2015 7:00 PM CDT Body Mass Index 44.31 12/13/2015 7:00 PM CDT documented in this encounter Discharge Summaries Rosie Blanco PA-C - 12/13/2015 8:20 PM CDT [facility] Outpatient/Observation Unit Discharge Summary Patient ID: Jennifer Dobbs [id number] 45 year old 1970 Admit date: 12/13/2015 Discharge date and time: 12/13/2015 Admitting Provider: Rosie Blanco PA-C Discharge Provider: Rosie Blanco PA-C Admission Diagnoses: Symptomatic anemia [D64.9] Discharge Diagnoses: Symptomatic anemia related to myelofibrosis Admission Condition: fair Discharged Condition: good Hospital Course: Reason for your hospital stay You were here for a blood transfusion, you received 1 unit of blood. You felt much better after the transfusion with no history of bleeding and no lightheadedness upon standing. Please follow up closely with [facility] to discuss your visit to the ED, as it is likely that you may require transfusions in the future with your diagnosis of myelofibrosis. The patient arrived at the ED following a conversation with nursing at [facility] as she was havinglightheadedness and feeling fatigued today. Her hemoglobin has been followed closely at [facility] as she has a diagnosis of myelofibrosis, diagnosed this year in late September. She was on Jakifi for this but was held starting last week until her labs were improving. Her hgb has been drifting down this past week, was 7.6 5 days ago, 6.5 yesterday, 6.7 today. She was advised to come to the ED for a transfusion. Following the transfusion she was brought to the observation unit, reported that she was feeling completely normal after this. No lightheadedness with standing, was able to [facility] with no complaints. Energy is up. No history of black tarry stools, blood in stool, bleeding of any kind. She was eager to go home and justowriter operator and supervising physician this evening Dr. Dior agreed that she was safe to return home. She is to f/u with [facility] requiring the need for a f/u transfusion and what to do for the next time she requires one (this was her first transfusion). Consults: none Significant Diagnostic Studies: Results for orders placed or performed during the hospital encounter of 12/13/15 (from the past 48 hour(s)) CBC with platelets differential Result Value Ref Range WBC 4.0 4.0 - 11.0 10e9/L RBC Count 2.38 (L) 3.8 - 5.2 10e12/L Hemoglobin 6.7 (LL) 11.7 - 15.7 g/dL Hematocrit 21.1 (L) 35.0 - 47.0 % MCV 89 78 - 100 fl MCH 28.2 26.5 - 33.0 pg MCHC 31.8 31.5 - 36.5 g/dL RDW 20.1 (H) 10.0 - 15.0 % Platelet Count 137 (L) 150 - 450 10e9/L Diff Method Manual Differential % Neutrophils 77.0 % % Lymphocytes 9.0 % % Monocytes 1.0 % % Eosinophils 1.0 % % Basophils 4.0 % % Metamyelocytes 8.0 % Nucleated RBCs 1 (H) 0 /100 Absolute Neutrophil 3.1 1.6 - 8.3 10e9/L Absolute Lymphocytes 0.4 (L) 0.8 - 5.3 10e9/L Absolute Monocytes 0.0 0.0 - 1.3 10e9/L Absolute Eosinophils 0.0 0.0 - 0.7 10e9/L Absolute Basophils 0.2 0.0 - 0.2 10e9/L Absolute Metamyelocytes 0.3 (H) 0 10e9/L Absolute Nucleated RBC 0.0 Anisocytosis Moderate Poikilocytosis Moderate Teardrop Cells Slight Microcytes Present Platelet Estimate Decreased ABO/Rh type and screen Result Value Ref Range Units Ordered 2 ABO A RH(D) Pos Antibody Screen Neg Test Valid Only At [facility] Specimen Expires 12/16/2015 Crossmatch Red Blood Cells Comprehensive metabolic panel Result Value Ref Range Sodium 141 133 - 144 mmol/L Potassium 3.9 3.4 - 5.3 mmol/L Chloride 108 94 - 109 mmol/L Carbon Dioxide 27 20 - 32 mmol/L Anion Gap 6 3 - 14 mmol/L Glucose 151 (H) 70 - 99 mg/dL Urea Nitrogen 9 7 - 30 mg/dL Creatinine 0.71 0.52 - 1.04 mg/dL GFR Estimate 88 >60 mL/min/1.7m2 GFR Estimate If Black >90 GFR Calc >60 mL/min/1.7m2 Calcium 8.4 (L) 8.5 - 10.1 mg/dL Bilirubin Total 1.0 0.2 - 1.3 mg/dL Albumin 3.8 3.4 - 5.0 g/dL Protein Total 6.8 6.8 - 8.8 g/dL Alkaline Phosphatase 49 40 - 150 U/L ALT 27 0 - 50 U/L AST 26 0 - 45 U/L Blood component Result Value Ref Range Unit Number [id number] Blood Component Type Red Blood Cells Leukocyte Reduced Division Number 00 Status of Unit Released to care unit 12/13/2015 1742 Blood Product Code [id number] Unit Status ISS Blood component Result Value Ref Range Unit Number [id number] Blood Component Type Red Blood Cells Leukocyte Reduced Division Number 00 Status of Unit Ready for patient 12/13/2015 1740 Blood Product Code [id number] Unit Status LILLIE EKG 12-lead, tracing only Result Value Ref Range Interpretation ECG Click View Image link to view waveform and result XR Chest 2 Views Narrative XR CHEST 2 VW 12/13/2015 5:43 PM HISTORY: sob COMPARISON: None. FINDINGS: The heart is negative. The lungs are clear. The pulmonary vasculature is normal. The bones and soft tissues are unremarkable. Impression IMPRESSION: No active infiltrate. UA with Microscopic Result Value Ref Range Color Urine Yellow Appearance Urine Slightly Cloudy Glucose Urine Negative NEG mg/dL Bilirubin Urine Negative NEG Ketones Urine Negative NEG mg/dL Specific [place] Urine 1.018 1.003 - 1.035 Blood Urine Negative NEG pH Urine 5.5 5.0 - 7.0 pH Protein Albumin Urine 10 (A) NEG mg/dL Urobilinogen mg/dL Normal 0.0 - 2.0 mg/dL Nitrite Urine Negative NEG Leukocyte Esterase Urine Negative NEG Source Midstream Urine WBC Urine 5 (H) 0 - 2 /HPF RBC Urine 1 0 - 2 /HPF Squamous Epithelial /HPF Urine 4 (H) 0 - 1 /HPF Mucous Urine Present (A) NEG /LPF Treatments: 1 unit blood transfusion in the ED, no treatments in the observation unit. Discharge Exam: B/P: 151/92, T: 99.3, P: 82, R: 18 GENERAL: Comfortable. PSYCH: pleasant, oriented, No acute distress. HEENT: Atraumatic, normocephalic. PERRLA. Normal conjunctiva, normal hearing, and oropharynx is normal. NECK: Supple, no neck vein distention, adenopathy or bruits, normal thyroid. HEART: Normal S1, S2 with no murmur, no pericardial rub, gallops or S3 or S4. LUNGS: Clear to auscultation, normal respiratory effort. No wheezing, rales or ronchi. GI: Soft, no hepatosplenomegaly, normal bowel sounds. Non-tender, non distended. EXTREMITIES: No pedal edema, +2 pulses bilateral and equal. SKIN: Dry to touch, No rash, wound or ulcerations. NEUROLOGIC: CN 2-12 intact, BL 5/5 symmetric upper and lower extremity strength, sensation is intactwith no focal deficits. Pending Studies: Unresulted Labs Ordered in the Past 30 Days of this Admission No orders found from 10/15/2015 to 12/14/2015. Disposition: home Patient Instructions: Review of your medicines CONTINUE these medicines which have NOT CHANGED Dose / Directions JAKAFI PO Take by mouth 2 times daily (JAKAFI, new rx, Pt states experimental) Refills: 0 MORPHINE SULFATE PO Dose: 30 mg Take 30 mg by mouth 2 times daily (Takes 15 mg BID if not working) Refills: 0 ondansetron 4 MG disintegrating tablet Commonly known as: ZOFRAN ODT Dose: 4-8 mg Take 1-2 tablets (4-8 mg) by mouth every 8 hours as needed for nausea Quantity: 30 tablet Refills: 0 oxyCODONE 5 MG immediate release tablet Commonly known as: ROXICODONE Dose: 5-10 mg Take 1-2 tablets (5-10 mg) by mouth every 6 hours as needed for moderate to severe pain Quantity: 30 tablet Refills: 0 senna-docusate 8.6-50 MG per tablet Commonly known as: SENOKOT-S;PERICOLACE Dose: 1 tablet Take 1 tablet by mouth 2 times daily Quantity: 60 tablet Refills: 1 Activity: activity as tolerated Active Diet Order Diet Wound Care: none needed Follow-up with Dr. Hu and/or nursing staff of [facility] tomorrow regarding whether they want a follow up hemoglobin after transfusion. F/u with PCP in 7 days for hospitalization f/u. Signed: Rosie Blanco Associated attestation - Emerson Dior MD - 12/13/2015 8:48 PM CDT Physician Attestation IEmerson, personally saw and evaluated Jennifer Dobbs as part of a shared visit. I have reviewed and discussed with the advanced practice provider their discharge plan. My roa history or physical exam findings from the day of discharge: Patient with hx of myelofibrosis, Hb has been drifting down slowly. Was sent to ER for a blood transfusion by her oncology nurse. Received 1 unit of RBC in ER and on arrival to floor feeling much better. Able to ambulate with resolution of dizziness. Categorically denies any kind of bleeding, melena, BRBPR, epistaxis. Roa management decisions made by me: Patient feeling dramatic improvement in her symptoms following the transfusion. No further SOB, dizziness, nausea or headaches. PLT are 137, and Jakafi on hold per patient's oncology team. She reports this was her first transfusion for the myelofibrosis. Suspect she will likely need intermittent transfusions in the future. Although, these could likely be done in outpatient setting in the future. Patient feeling much better and requesting discharge home. Anemia is likely related to her progressive myelofibrosis, she has no signs of bleeding and appears stable for discharge home. Advised to contact her oncology clinic tomorrow and set up a Hemoglobin recheck on Friday. Emerson Dior Date of Service (when I saw the patient): 12/13/2015 documented in this encounter Medications at Time [...] states experimental) documented as of this encounter H&P Notes Rosie Blanco PA-C - 12/13/2015 10:42 PM CDT [facility] Outpatient/Observation Unit H&P - Patient discharged same day Patient ID: Jennifer Dobbs [id number] 45 year old 1970 Admit date: 12/13/2015 Discharge date and time: 12/13/2015 Admitting Provider: Rosie Blanco PA-C Discharge Provider: Rosie Blanco PA-C Admission Diagnoses:?? Symptomatic anemia [D64.9] Discharge Diagnoses: Symptomatic anemia related to myelofibrosis Admission Condition: fair Discharged Condition: good Hospital Course: Reason for your hospital stay?You were here for a blood transfusion, you received 1 unit of blood.?? You ?? felt much better after the transfusion with no history of bleeding and no ?? lightheadedness upon standing.?? Please follow up closely with [facility] ?? to discuss your visit to the ED, as it is likely that you may require ?? transfusions in the future with your diagnosis of myelofibrosis.? The patient arrived at the ED following a conversation with nursing at [facility] as she was havinglightheadedness and feeling fatigued today. Her hemoglobin has been followed closely at [facility] as she has a diagnosis of myelofibrosis, diagnosed this year in late September.?? She was on Jakifi for this but was held starting last week until her labs were improving.?? Her hgb has been drifting down this past week, was 7.6 5 days ago, 6.5 yesterday, 6.7 today.?? She was advised to come to the ED for a transfusion.?? Following the transfusion she was brought to the observation unit, reported that shewas feeling completely normal after this.?? No lightheadedness with standing, was able to walk to and from the bathroom with no complaints.?? Energy is up.?? No history of black tarry stools, blood in stool, bleeding of any kind.?? She was eager to go home and justowriter operator and supervising physician this evening Dr. Dior agreed that she was safe to return home.?? She is to f/u with [facility] requiring the need for a f/u transfusion and what to do for the next time she requires one (this was her first transfusion). Consults: none Significant Diagnostic Studies: ?? Results for orders placed or performed during the hospital encounter of 12/13/15 (from the past 48 hour(s))?? CBC with platelets differential?? Result?? Value?? Ref Range? WBC?? 4.0?? 4.0 - 11.0 10e9/L? RBC Count?? 2.38 (L)?? 3.8 - 5.2 10e12/L? Hemoglobin?? 6.7 (LL)?? 11.7 - 15.7 g/dL? Hematocrit?? 21.1 (L)?? 35.0 - 47.0 %? MCV?? 89?? 78 - 100 fl? MCH?? 28.2?? 26.5 - 33.0 pg? MCHC?? 31.8?? 31.5 - 36.5 g/dL? RDW?? 20.1 (H)?? 10.0 - 15.0 %? Platelet Count?? 137 (L)?? 150 - 450 10e9/L? Diff Method?? Manual Differential? % Neutrophils?? 77.0?? %? % Lymphocytes?? 9.0?? %? % Monocytes?? 1.0?? %? % Eosinophils?? 1.0?? %? % Basophils?? 4.0?? %? % Metamyelocytes?? 8.0?? %? Nucleated RBCs?? 1 (H)?? 0 /100? Absolute Neutrophil?? 3.1?? 1.6 - 8.3 10e9/L? Absolute Lymphocytes?? 0.4 (L)?? 0.8 - 5.3 10e9/L? Absolute Monocytes?? 0.0?? 0.0 - 1.3 10e9/L? Absolute Eosinophils?? 0.0?? 0.0 - 0.7 10e9/L? Absolute Basophils?? 0.2?? 0.0 - 0.2 10e9/L? Absolute Metamyelocytes?? 0.3 (H)?? 0 10e9/L? Absolute Nucleated RBC?? 0.0? Anisocytosis?? Moderate? Poikilocytosis?? Moderate? Teardrop Cells?? Slight? Microcytes?? Present? Platelet Estimate?? Decreased? ABO/Rh type and screen?? Result?? Value?? Ref Range? Units Ordered?? 2? ABO?? A? RH(D)?Pos? Antibody Screen?? Neg? Test Valid Only At?? [facility]? Specimen Expires?? 12/16/2015? Crossmatch?? Red Blood Cells? Comprehensive metabolic panel?? Result?? Value?? Ref Range? Sodium?? 141?? 133 - 144 mmol/L? Potassium?? 3.9?? 3.4 - 5.3 mmol/L? Chloride?? 108?? 94 - 109 mmol/L? Carbon Dioxide?? 27?? 20 - 32 mmol/L? Anion Gap?? 6?? 3 - 14 mmol/L? Glucose?? 151 (H)?? 70 - 99 mg/dL? Urea Nitrogen?? 9?? 7 - 30 mg/dL? Creatinine?? 0.71?? 0.52 - 1.04 mg/dL? GFR Estimate?? 88?? >60 mL/min/1.7m2? GFR Estimate If Black?? >90 GFR Calc ?? >60 mL/min/1.7m2? Calcium?? 8.4 (L)?? 8.5 - 10.1 mg/dL? Bilirubin Total?? 1.0?? 0.2 - 1.3 mg/dL? Albumin?? 3.8?? 3.4 - 5.0 g/dL? Protein Total?? 6.8?? 6.8 - 8.8 g/dL? Alkaline Phosphatase?? 49?? 40 - 150 U/L? ALT?? 27?? 0 - 50 U/L? AST?? 26?? 0 - 45 U/L?? Blood component?? Result?? Value?? Ref Range? Unit Number?? [id number]? Blood Component Type?? Red Blood Cells Leukocyte Reduced? Division Number?? 00? Status of Unit?? Released to care unit 12/13/2015 1742? Blood Product Code?? [id number]? Unit Status?? ISS? Blood component?? Result?? Value?? Ref Range? Unit Number?? [id number]? Blood Component Type?? Red Blood Cells Leukocyte Reduced? Division Number?? 00? Status of Unit?? Ready for patient 12/13/2015 1740? Blood Product Code?? [id number]? Unit Status?? LILLIE? EKG 12-lead, tracing only?? Result?? Value?? Ref Range? Interpretation ECG?? Click View Image link to view waveform and result? XR Chest 2 Views? Narrative? XR CHEST 2 VW? 12/13/2015 5:43 PM HISTORY: sob COMPARISON: None. FINDINGS: The heart is negative.?? The lungs are clear. The pulmonary vasculature is normal.?? The bones and soft tissues are unremarkable.? Impression? IMPRESSION: No active infiltrate.? UA with Microscopic?? Result?? Value?? Ref Range? Color Urine?? Yellow? Appearance Urine?? Slightly Cloudy? Glucose Urine?? Negative?? NEG mg/dL? Bilirubin Urine?? Negative?? NEG? Ketones Urine?? Negative?? NEG mg/dL? Specific [place] Urine?? 1.018?? 1.003 - 1.035? Blood Urine?? Negative?? NEG? pH Urine?? 5.5?? 5.0 - 7.0 pH? Protein Albumin Urine?? 10 (A)?? NEG mg/dL? Urobilinogen mg/dL?? Normal?? 0.0 - 2.0 mg/dL? Nitrite Urine?? Negative?? NEG? Leukocyte Esterase Urine?? Negative?? NEG? Source?? Midstream Urine? WBC Urine?? 5 (H)?? 0 - 2 /HPF? RBC Urine?? 1?? 0 - 2 /HPF? Squamous Epithelial /HPF Urine?? 4 (H)?? 0 - 1 /HPF? Mucous Urine?? Present (A)?? NEG /LPF?? Treatments: 1 unit blood transfusion in the ED, no treatments in the observation unit. Discharge Exam: B/P: 151/92, T: 99.3, P: 82, R: 18 GENERAL:?? Comfortable. PSYCH: pleasant, oriented, No acute distress. HEENT:?? Atraumatic, normocephalic. PERRLA. Normal conjunctiva, normal hearing, and oropharynx is normal. NECK:?? Supple, no neck vein distention, adenopathy or bruits, normal thyroid. HEART:?? Normal S1, S2 with no murmur, no pericardial rub, gallops or S3 or S4. LUNGS:?? Clear to auscultation, normal respiratory effort. No wheezing, rales or ronchi. GI:?? Soft, no hepatosplenomegaly, normal bowel sounds. Non-tender, non distended. ?? EXTREMITIES:?? No pedal edema, +2 pulses bilateral and equal. SKIN:?? Dry to touch, No rash, wound or ulcerations. NEUROLOGIC:?? CN 2-12 intact, BL 5/5 symmetric upper and lower extremity strength, sensation is intact with no focal deficits. Pending Studies:?? Unresulted Labs Ordered in the Past 30 Days of this Admission ? No orders found from 10/15/2015 to 12/14/2015.? Disposition: home Patient Instructions: ? Review of your medicines? CONTINUE these medicines which have NOT CHANGED ? Dose / Directions? JAKAFI PO? Take by mouth 2 times daily (JAKAFI, new rx, Pt states experimental)?? Refills:?? 0? MORPHINE SULFATE PO? Dose:?? 30 mg?? Take 30 mg by mouth 2 times daily (Takes 15 mg BID if not working)?? Refills:?? 0? ondansetron 4 MG disintegrating tablet?? Commonly known as:?? ZOFRAN ODT? Dose:?? 4-8 mg?? Take 1-2 tablets (4-8 mg) by mouth every 8 hours as needed for nausea?? Quantity:?? 30 tablet?? Refills:?? 0? oxyCODONE 5 MG immediate release tablet?? Commonly known as:?? ROXICODONE? Dose:?? 5-10 mg?? Take 1-2 tablets (5-10 mg) by mouth every 6 hours as needed for moderate to severe pain?? Quantity:?? 30 tablet?? Refills:?? 0? senna-docusate 8.6-50 MG per tablet?? Commonly known as:?? SENOKOT-S;PERICOLACE? Dose:?? 1 tablet?? Take 1 tablet by mouth 2 times daily?? Quantity:?? 60 tablet?? Refills:?? 1? Activity: activity as tolerated Active Diet Order Diet Wound Care: none needed Follow-up with Dr. Hu and/or nursing staff of [facility] tomorrow regarding whether they want a follow up hemoglobin after transfusion.?? F/u with PCP in 7 days for hospitalization f/u. Signed: Rosie Blanco Associated attestation - Wolfgang Weiss MD - 12/19/2015 2:30 PM CDT Physician Attestation I, Wolfgang Weiss, have reviewed and discussed with the advanced practice provider their history, physical and plan for Jennifer Dobbs. I did not participate in a shared visit by interviewing or examining the patient and this should be billed as an advanced practice provider only visit. Wolfgang Weiss Date of Service (when I saw the patient): I did not personally see this patient today. documented in this encounter ED Notes Rajani Sharp RN - 12/13/2015 8:43 PM CDT OBSERVATION patient END time: 2042 Rajani Sharp RN - 12/13/2015 6:54 PM CDT OBSERVATION patient IN TIME: 1854 Meli Rosario - 12/13/2015 6:34 PM CDT Observation Brochure and Video Patient and family informed of observation status based on provider's order. Observation Brochure was given and video watched. Meli Rosario RN Meli Rosario - 12/13/2015 6:23 PM CDT Pt resting in bed, awaiting admission to floor. Denies further needs at this time. Meli Rosario - 12/13/2015 4:23 PM CDT Pt presents to ED c/o increasing fatigue. Pt also c/o anemia, states her hemoglobin from yesterday was 6.9. Symptoms have worsened over the last 1w. Hx of myelofibrosis, for which she has been taking an experimental drug called jackifi. Pt is A&O x4, ABCs intact. Aurelio Stokes MD - 12/13/2015 4:17 PM CDT History Chief Complaint: Fatigue, low hemoglobin concerns HPI Jennifer Dobbs is a 45 year old female with history of myelofibrosis who presents with fatigue and lowhemoglobin. Patient states her nurse at oncology called her and recommended she come to the ED to receive a blood transfusion due to low hemoglobin. Patient's hemoglobin was 7.6 on 12/07/25 and 6.5 on 12/12/15. For the past month, patient has been on an experimental medication for her myelofibrosis, Jakafi, which she stopped receiving last week. She is still taking her pain medication. Patient is feeling fatigued, has had a constant headache for the past 2-3 weeks, and has difficulty breathing. Patient is dizzy and nauseous, but denies fever or diarrhea. Patient has not received a blood transfusion or bone marrow transplant in the past. Of note, patient states she has had high blood pressure recently. Allergies: No known drug allergies Medications: Morphine sulfate Jakafi Past Medical History: Myelofibrosis Past Surgical History: Tonsillectomy Myringotomies Stitches in finger Biopsy bone marrow, bone specimen, needle/trocar Family History: History reviewed. No pertinent family history. Social History: Marital Status: Smoking status: Former smoker Alcohol use: Yes Review of Systems Constitutional: Positive for fatigue. Negative for fever. Respiratory: Positive for shortness of breath. Gastrointestinal: Positive for nausea. Negative for diarrhea. Neurological: Positive for dizziness and headaches. All other systems reviewed and are negative. Physical Exam Vitals: BP: 158/82 mmHg Heart Rate: 95 Resp: 22 SpO2: 100% RA Temp: 99.4 ??F (oral) Physical Exam Constitutional: She appears well-developed and well-nourished. HENT: Right Ear: External ear normal. Left Ear: External ear normal. Mouth/Throat: Oropharynx is clear and moist. No oropharyngeal exudate. TM's clear bilaterally Eyes: Conjunctivae are normal. Pupils are equal, round, and reactive to light. No scleral icterus. Neck: Normal range of motion. Neck supple. Cardiovascular: Normal rate, regular rhythm, normal heart sounds and intact distal pulses. Exam reveals no gallop and no friction rub. No murmur heard. Pulmonary/Chest: Effort normal and breath sounds normal. No respiratory distress. She has no wheezes. She has no rales. Abdominal: Soft. Bowel sounds are normal. She exhibits no distension and no mass. There is no tenderness. Musculoskeletal: She exhibits no edema. Neurological: She is alert. Skin: Skin is warm and dry. No rash noted. There is pallor. Pale in appearance. Psychiatric: She has a normal mood and affect. Emergency Department Course ECG: @ 1654 Indication: fatigue, low hemoglobin Vent. Rate 94 bpm. LA interval 132 ms. QRS duration 84 ms. QT/QTc 390/487 ms. P-R-T axis 67 34 77. Sinus rhythm with premature supraventricular complexes. Nonspecific T wave abnormality, Prolonged QT. Abnormal ECG. Read @ [address] Stokes. Imaging: XR Chest 2 views IMPRESSION: No active infiltrate. Preliminary radiology read. Radiographic findings were communicated with the patient who voiced understanding of the findings. Laboratory: CBC: WBC 4.0, HGB 6.7 (LL), PLT 137 (L) ABO/Rh Type and Screen: A Positive, antibody screen negative CMP: Glucose 151 (H), Calcium 8.4 (L) otherwise WNL (Creatinine 0.71) Interventions: Packed RBC, 1 units, IV Normal Saline, 1 liter, IV bolus Emergency Department Course: Nursing notes and vitals reviewed. I performed an exam of the patient as documented above. A peripheral IV was established. Blood was drawn from the patient. This was sent for laboratory testing, findings above. EKG was done, interpretation as above. The patient was sent for a chest x-ray while in the emergency department, findings above. Findings and plan explained to the patient who consents to observation. (1827) I discussed the patient with Rosie Blanco PA-C of the hospitalist service, who will place thepatient in observation in the observation drone pilot area. Impression & Plan Medical Decision Making: Patient presents with very low hemoglobin, fatigue, shortness of breath for several weeks. She does have history of myelofibrosis and anemia they are watching. Patient is pale in appearance, but otherwise normal without any evidence of hypoxia. She is typed and crossed. We did obtain records from the [facility] and also we did labs today, her hemoglobin is 6.7. She is started on the first unit of blood, she did consent to it. We will admit her to observation unit and watch her closely. She does have twounits that are types and crossed for her, and we will do the first unit first and re-evaluate her symptoms. Patient voiced her understanding. Patient is admitted to observation unit under hospitalist service. Diagnosis: ICD-10-CM 1. Symptomatic anemia D64.9 UA with Microscopic 2. Myelofibrosis (H) D75.81 Disposition: Admitted to the hospitalist service 12/13/2015 [facility] EMERGENCY DEPARTMENT Luz Peters, maldonado serving as a scribe on 12/13/2015 at 4:37 PM to personally document services performed by Dr. Stokes based on my observations and the provider's statements to me. Aurelio Stokes MD 12/13/15 2247 documented in this encounter Miscellaneous Notes Pharmacy-Admission Medication History - Baljeet Grossman RP - 12/13/2015 7:32 PM CDT Admission medication history interview status for this patient is complete. See [facility] admission navigator for allergy information, prior to admission medications and immunization status. 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 No Time spent in this activity: 10 min Prior to Admission medications Medication Sig Last Dose Taking? Auth Provider MORPHINE SULFATE PO Take 30 mg by mouth 2 times daily (Takes 15 mg BID if not working) 12/13/2015 at x1 Yes Reported, Patient Ruxolitinib Phosphate (JAKAFI PO) Take by mouth 2 times daily (JAKAFI, new rx, Pt states experimental) Yes Unknown, Entered By History oxyCODONE (ROXICODONE) 5 MG immediate release tablet Take 1-2 tablets (5-10 mg) by mouth every 6 hours as needed for moderate to severe pain Past Week at Unknown time Yes Michelle Washington MD senna-docusate (SENOKOT-S;PERICOLACE) 8.6-50 MG per tablet Take 1 tablet by mouth 2 times daily 12/13/2015 at Unknown time Yes Michelle Washington MD ondansetron (ZOFRAN ODT) 4 MG disintegrating tablet Take 1-2 tablets (4-8 mg) by mouth every 8 hoursas needed for nausea Past Month at Unknown time Yes Michelle Washington MD documented in this encounter Plan of Treatment Not on filedocumented as of this encounter Procedures Procedure Name Priority Date/Time Associated Comments Diagnosis ROUTINE UA WITH STAT 12/13/2015 7:38 PM Symptomatic anemia Results for this MICROSCOPIC CDT procedure are i n the results section. TRANSFUSE RED BLOOD STAT 12/13/2015 5:47 PM CELL UNIT CDT XR CHEST 2 VIEWS STAT 12/13/2015 5:43 PM Resul ts for this CDT procedure are i n the results section. EKG 12-LEAD, TRACING STAT 12/13/2015 4:54 PM R esults for this ONLY CDT procedure are i n the results section. BLOOD COMPONENT Routine 12/13/2015 4:30 PM Symptomatic anemia Results for this CDT procedure are i n the results section. BLOOD COMPONENT Routine 12/13/2015 4:30 PM Symptomatic anemia Results for this CDT procedure are i n the results section. CBC WITH PLATELETS & STAT 12/13/2015 4:30 PM R esults for this DIFFERENTIAL CDT procedure are i n the results section. COMPREHENSIVE STAT 12/13/2015 4:30 PM Results for this METABOLIC PANEL CDT procedure ar e in the results section. ABO/RH TYPE AND SCREEN STAT 12/13/2015 4:30 PM Results for this CDT procedure are i n the results section. documented in this encounter Results (ABNORMAL) UA with Microscopic (12/13/2015 7:38 PM CDT) [facility] Method Time Signature Color Urine Yellow [facility] Appearance Urine Slightly [place] Cloudy [facility] Glucose Urine Negative NEG mg/dL [facility] Bilirubin Urine Negative NEG [facility] Ketones Urine Negative NEG mg/dL [facility] Specific [place] 1.018 1.003 - [place] Urine 1.035 [facility] Blood Urine Negative NEG [facility] pH Urine 5.5 5.0 - 7.0 [place] pH [facility] Protein Albumin 10 (A) NEG mg/dL [facility] Urobilinogen Normal 0.0 - 2.0 [place] mg/dL mg/dL [facility] Nitrite Urine Negative NEG [facility] Leukocyte Negative NEG [place] Esterase Urine [facility] Source Midstream [facility] WBC Urine 5 (H) 0 - 2 [place] /HPF [facility] RBC Urine 1 0 - 2 [place] /HPF [facility] Squamous 4 (H) 0 - 1 [place] Epithelial /HPF /HPF [facility] Mucous Urine Present (A) NEG /LPF [facility] Specimen Anatomical Collection Method Collection Time Receive d Time (Source) Location / / Volume Laterality Urine specimen MID-STREAM URINE 12/13/2015 7:38 PM 07/2015 7:52 (specimen) SPECIMEN / Unknown CDT PM CDT Aurelio Stokes MD LAB - URINE ORDERABLES Performing Organization Address City/State/ZIP Code Phon e Number M [facility] [address] [place], [place] [address] [facility] [address] [place], [place] [address] [facility] [phone] Transfuse red blood cell unit (12/13/2015 7:34 PM CDT) Aurelio Stokes MD IP NURSING BLOOD ADMINISTRAT ON XR Chest 2 Views (12/13/2015 5:43 PM CDT) Anatomical Region Laterality Modality Chest Computed Radiography Specimen (Source) Anatomical Location Collection Method / Collectio n Time Received Time / Laterality Volume Impressions 12/13/2015 8:37 PM CDT IMPRESSION: No active infiltrate. ? KAMILA EASLEY MD Narrative 12/13/2015 8:37 PM CDT XR CHEST 2 VW ?? 12/13/2015 5:43 PM HISTORY: sob COMPARISON: None. FINDINGS: The heart is negative. ??The l ungs are clear. The pulmonary vasculature is normal. ??The bones and s oft tissues are unremarkable. ? Procedure Note Jesus Easley MD - 12/13/2015For matting of this note might be different from the original. XR CHEST 2 VW 12/13/2015 5:43 PM HISTORY: sob COMPARISON: None. FINDINGS: The heart is negative. The devyn gs are clear. The pulmonary vasculature is normal. The bones and sof t tissues are unremarkable. IMPRESSION: No active infiltrate. KAMILA EASLEY MD Aurelio Stokes MD IMG DIAGNOSTIC IMAGING ORDER NAGI EKG 12-lead, tracing only (12/13/2015 4:54 PM CDT) [facility] Method Time Signature Interpretation ECG Click View RADIOLOGY Image link RESULTS to view waveform and result Specimen (Source) Anatomical Collection Method Collection Time Re ceived Time Location / / Volume Laterality 12/13/2015 4:54 PM CDT Aurelio Stokes MD ECG ORDERABLES Performing Organization Address City/State/ZIP Code Phon e Number RADIOLOGY RESULTS Blood component (12/13/2015 4:30 PM CDT) [facility] [employer] Method Time Signature Unit Number [id number] [facility] Blood Red Blood [facility] Component Cells [facility] HOSPITAL Reduced Division 00 [facility] of [facility] 12/17/2015 HOSPITAL 0300 Blood Product [id number] [facility] Unit Status RET [facility] Specimen Anatomical Collection Method Collection Time Receive d Time (Source) Location / / Volume Laterality 12/13/2015 4:30 PM 6 4:42 CDT PM CDT Aurelio Stokes MD LABORATORY Performing Organization Address City/[facility]/ZIP Code Phon e Number M [facility] [address] [place], [place] [address] [facility] [address] [place], [place] [address], [place] [phone] Blood component (12/13/2015 4:30 PM CDT) Patholo gist Method Time Signature Unit Number [id number] [facility] Blood Red Blood [place] Component Cells [facility] HOSPITAL Reduced Division 00 [facility] Status of Released to [place] Unit care unit [facility] Blood Product [id number] [facility] Unit Status ISS [facility] Specimen Anatomical Collection Method Collection Time Receive d Time (Source) Location / / Volume Laterality 12/13/2015 4:30 PM 6 4:42 CDT PM CDT Aurelio Stokes MD LABORATORY Performing Organization Address City/[facility] Phon e Number M [facility] [address] [place], [place] [address] [facility] [address] [place], [place] [address] [phone] (ABNORMAL) Comprehensive metabolic panel (12/13/2015 4:30 PM CDT) P athologist Signature Sodium 141 133 - 144 [place] mmol/L [facility] Potassium 3.9 3.4 - 5.3 [place] mmol/L [facility] Chloride 108 94 - 109 [place] mmol/L [facility] Carbon Dioxide 27 20 - 32 [place] mmol/L [facility] Anion Gap 6 3 - 14 [place] mmol/L [facility] Glucose 151 (H) 70 - 99 [place] mg/dL [facility] Urea Nitrogen 9 7 - 30 [place] mg/dL [facility] Creatinine 0.71 0.52 - [place] 1.04 mg/dL [facility] GFR Estimate 88 >60 [place] mL/min/1.7 [facility] m2 [facility] Comment: Non GFR Calc GFR Estimate If Black >90 >60 mL/min/1.7m2 F [facility] GFR Calc HOSP ITAL Calcium 8.4 (L) 8.5 - 10.1 mg/dL [facility] Bilirubin Total 1.0 0.2 - 1.3 mg/dL [facility] Albumin 3.8 3.4 - 5.0 g/dL [facility] Protein Total 6.8 6.8 - 8.8 g/dL [facility] Alkaline Phosphatase 49 40 - 150 U/L [facility] ALT 27 0 - 50 U/L [facility] AST 26 0 - 45 U/L [facility] Specimen Anatomical Collection Method Collection Time Receive d Time (Source) Location / / Volume Laterality Blood specimen 12/13/2015 4:30 PM 016 4:43 (specimen) CDT PM CDT Aurelio Stokes MD LAB - BLOOD ORDERABLES Performing Organization Address City/[facility]/ZIP [facility] Phon e Number M [facility] [address] [place], [place] [address] [place] [address] [place], [place] [address], [place] [phone] ABO/Rh type and screen (12/13/2015 4:30 PM CDT) [facility] Method Time Signature Units Ordered 2 [facility] ABO A [facility] RH(D) Pos [facility] Antibody Neg [facility] Test Valid [facility] Only At [facility] HOSPITAL Specimen 12/16/2015 [place] [facility] Cross[facility] Red Blood [facility] Specimen Anatomical Collection Method Collection Time Receive d Time (Source) Location / / Volume Laterality Blood specimen 12/13/2015 4:30 PM 016 4:42 (specimen) CDT PM CDT Aurelio Stokes MD LAB - BLOOD BANK TEST ORDER Performing Organization Address City/[facility] Phon e Number M [facility] [address] [place], [place] [address] [facility] [address] [place], [place] [address] [facility] [phone] (ABNORMAL) CBC with platelets differential (12/13/2015 4:30 PM CDT) P athologist Signature WBC 4.0 4.0 - 11.0 [place] 10e9/L [facility] RBC Count 2.38 (L) 3.8 - 5.2 [place] 10e12/L [facility] Hemoglobin 6.7 (LL) 11.7 - 15.7 [place] g/dL [facility] Comment: This result has been called to TOMASZ CA(ERB) by Jimenez Walker on 12 13 2015 at 1654, and has been read back. Hematocrit 21.1 (L) 35.0 - 47.0 % [facility] MCV 89 78 - [address] [facility] MCH 28.2 26.5 - 33.[address] [facility] MCHC 31.8 31.5 - 36.5 g/dL [facility] RDW 20.1 (H) 10.0 - 15.0 % [facility] Platelet Count 137 (L) 150 - 450 10e9/L [facility] Diff Method Manual Differential [facility] % Neutrophils 77.0 % [facility] % Lymphocytes 9.0 % [facility] % Monocytes 1.0 % [facility] % Eosinophils 1.0 % [facility] % Basophils 4.0 % [facility] % Metamyelocytes 8.0 % [facility] Nucleated RBCs 1 (H) 0 /100 [facility] Absolute Neutrophil 3.1 1.6 - 8.3 10e9/L [facility] Absolute Lymphocytes 0.4 (L) 0.8 - 5.3 10e9/L [facility] Absolute Monocytes 0.0 0.0 - 1.3 10e9/L [facility] Absolute Eosinophils 0.0 0.0 - 0.7 10e9/L [facility] Absolute Basophils 0.2 0.0 - 0.2 10e9/L [facility] Absolute Metamyelocytes 0.3 (H) 0 10e9/L [facility] Absolute Nucleated RBC 0.0 [facility] Anisocytosis Moderate [facility] Poikilocytosis Moderate [facility] Teardrop Cells Slight [facility] Microcytes Present [facility] Platelet Estimate Decreased [facility] Specimen Anatomical Collection Method Collection Time Receive d Time (Source) Location / / Volume Laterality Blood specimen 12/13/2015 4:30 PM 016 4:43 (specimen) CDT PM CDT Aurelio Stokes MD LAB - BLOOD ORDERABLES Performing Organization Address City/State/ZIP Code Phon e Number M [place] [address] [place], [place] [address] [facility] [address] [place], [place] [address] [place] [address] documented in this encounter Visit Diagnoses Diagnosis Symptomatic anemia Myelofibrosis (H) Myelofibrosis documented in this encounter Administered Medications Inactive Administered Medications - up to 3 most recent administrations Medication Order MAR Action Action Date Dose Rate Site 0.9% sodium chloride BOLUS New Bag 12/13/2015 4:51 PM CDT 1,000 mLs 1000 mL/hr Intravenous, 1,000 mL, ONCE, at 1,000 mL/hr, Administer over 1 Hours, On Fri12/13/15 at 1638, For 1 dose documented in this encounter Active and Recently Administered Medications Times are shown in CDT. Scheduled Medication Order 12/11/2015 12/12/2015 12/13/2015 0.9% sodium chloride BOLUS (COMPLETED) 1651 (New Bag - Provider: Paulina Kruger RN)1836 (Stopped - Provider: Meli Rosario) Intravenous, 1,000 mL, ONCE, at 1,000 mL /hr, for 1 Hours, Fri12/13/15 at 1638, For 1 dose documented in this encounter Care Teams Shop Blacksmith Relationship Specialty Start Date End Date Clinic, [facility] PCP - General 12/13/15 09/29/17 [address] [place] [address] documented as of this encounter
--- OUTSIDE RECORDS SUMMARY | 2022-05-02 12:22 | XMS_ITS | Encounter Summary ---
:1970 Author Organization [facility] Address [address] [place] [address] Care Team Providers Name Role Phone No Ref-Primary, Physician Primary Care Provider [phone] Encounter Details Date Type Department Care Team Description 09/30/2017 [facility] Edin Hu, Myelopro liferative Encounter [facility] Laboratory disorder (H) [address] HEMATOLOGY [place], [place] [address] [place] [address] [address] [place], [place] [id number] Social History Tobacco Use Types Packs/Day Years [...] Associated Diagnosis Comme nts BLOOD COMPONENT Routine 09/30/2017 5:51 Myeloproliferative Res ults for this PM CDT disorder (H) procedure are i n the results section. ABO/RH TYPE AND Routine 09/30/2017 5:51 Myeloproliferative Res ults for this SCREEN PM CDT disorder (H) procedure are i n the results section. documented in this encounter Results Blood component (09/30/2017 5:51 PM CDT) [facility] Method Time Signature Unit Number [id number] 09/30/2017 [facility] 6:44 PM [facility] Blood Red Blood 09/30/2017 [facility] Component Cells 6:44 PM [facility] Leukocyte [facility] Reduced Division 00 09/30/2017 [facility] Number 6:44 PM [facility] Status of Released to 10/02/2017 [place] Unit care unit 11:52 PM [facility] Blood Product [id number] 09/30/2017 [facility] Code 6:44 PM [facility] Unit Status ISS [facility] Specimen Anatomical Collection Method Collection Time Receive d Time (Source) Location / / Volume Laterality 09/30/2017 5:51 PM 8 5:52 CDT PM CDT Rj Longoria MD LABORATORY Performing Organization Address City/State/ZIP Code Phon e Number M [facility] [address] [place], [place] [address] [phone] [facility] [address] [phone] ABO/Rh type and screen (09/30/2017 5:51 PM CDT) [facility] Method Time Signature Units Ordered 1 09/30/2017 [facility] 6:44 PM [facility] ABO A 09/30/2017 [facility] 6:41 PM CDT [facility] RH(D) Pos [facility] Antibody Neg 09/30/2017 [facility] Screen 6:41 PM [facility] Test Valid [facility] 09/30/2017 [facility] Only At [facility] 6:44 PM [facility] Specimen 10/03/2017 09/30/2017 [facility] Expires 6:44 PM [facility] Crossmatch Red Blood 09/30/2017 [facility] Cells 6:44 PM [facility] Specimen Anatomical Collection Method Collection Time Receive d Time (Source) Location / / Volume Laterality Blood specimen 09/30/2017 5:51 PM 018 5:52 (specimen) CDT PM CDT Rj Longoria MD LAB - BLOOD BANK TEST ORDER Performing Organization Address City/State/ZIP Code Phon e Number M [facility] [address] [place] [address] [facility] [address] [phone] documented in this encounter 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
--- OUTSIDE RECORDS SUMMARY | 2022-05-02 12:22 | XMS_ITS | Encounter Summary ---
:1970 Author Organization [facility] Address [address] [place] [address] Care Team Providers Name Role Phone [facility], [facility] Primary Care Provider [phone] Carolann Macias MD Unavailable Encounter Details Date Type Department Care Team Description 07/03/2017 [facility] Edin Hu Myelopro liferative Encounter [facility] Laboratory disorder (H) [address] HEMATOLOGY [place], [place] [address] [facility] [address] [address] [place] [address] Social History Tobacco Use Types [...] Associated Diagnosis Comme nts BLOOD COMPONENT Routine 07/03/2017 6:01 Myeloproliferative Res ults for this PM BOTTOM FINISHER disorder (H) procedure are i n the results section. ABO/RH TYPE AND Routine 07/03/2017 6:01 Myeloproliferative Res ults for this SCREEN PM BOTTOM FINISHER disorder (H) procedure are i n the results section. documented in this encounter Results Blood component (07/03/2017 6:01 PM BOTTOM FINISHER) [facility] Method Time Signature Unit Number [id number] 07/04/2017 [facility] 8:27 AM [facility] Blood Red Blood 07/04/2017 [facility] Component Cells 8:27 AM [facility] Reduced Division 00 07/04/2017 [facility] Number 8:27 AM [facility] Status of Released to 07/04/2017 [facility] Unit care unit 11:52 PM [facility] Blood Product [id number] 07/04/2017 [facility] Code 8:28 AM [facility] Unit Status ISS [facility] Specimen Anatomical Collection Method Collection Time Receive d Time (Source) Location / / Volume Laterality 07/03/2017 6:01 PM 7 6:05 BOTTOM FINISHER PM BOTTOM FINISHER Edin Hu MD LABORATORY Performing Organization Address City/State/ZIP Code Phon e Number M [facility] [address] [place], [place] [address] [facility] [address] [place], [place] [address] [facility] [phone] ABO/Rh type and screen (07/03/2017 6:01 PM BOTTOM FINISHER) [facility] Method Time Signature Units Ordered 1 07/05/2017 [facility] 2:06 PM [facility] ABO A 07/03/2017 [facility] 7:16 PM [facility] RH(D) Pos [facility] Antibody Neg 07/03/2017 [facility] Screen 7:16 PM [facility] Test Valid [facility] 07/03/2017 [facility] Only At [facility] 7:18 PM [facility] Specimen 07/06/2017 07/03/2017 [facility] Expires 7:18 PM [facility] Specimen Anatomical Collection Method Collection Time Receive d Time (Source) Location / / Volume Laterality Blood specimen 07/03/2017 6:01 PM 017 6:05 (specimen) BOTTOM FINISHER PM BOTTOM FINISHER Edin Hu MD LAB - BLOOD BANK TEST ORDER Performing Organization Address City/State/ZIP Code Phon e Number M [place] [address] [address] [place], [place] [address] [facility] [address] [place], [place] [address] [facility] [phone] documented in this encounter 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
--- OUTSIDE RECORDS SUMMARY | 2022-05-02 12:22 | XMS_ITS | Encounter Summary ---
:1970 Author Organization [facility] Address [address] [place] [address] Care Team Providers Name Role Phone No Ref-Primary, Physician Primary Care Provider [phone] Reason for Visit Auth/Cert Specialty Diagnoses / Procedures Referred By Contact Refer red To Contact Surgery Diagnoses up Rh Periop Services Procedures BIOPSY BONE MARROW [address] [place], [place] [address] Phone: Fax: Referral ID Status Reason Start Date Expiration Date Visits Requ ested Visits Authorized [id number] 1 1 Encounter Details Date Type Department Care Team Description 09/14/2015 Hospital Encounter [facility] Paolo Smith PreOP/PostOP MD Alea [address] [place], [place] [phone] Social History Tobacco Use Types Packs/Day Years Used Date Smoking Tobacco: Former Comments: quit September 27, 2012 Alcohol Use Standard Drinks/Week Comments Yes 0 (1 standard drink = 0.6 oz pure alcoho l) 1 drink per week Sex Assigned at Date Recorded Not on file documented as of this encounter Last Filed Vital Signs Vital Sign Reading Time Taken Comments Blood Pressure 150/85 09/14/2015 12:00 PM GUARD ENTRANCE REGISTRAR Pulse 81 09/14/2015 8:01 AM GUARD ENTRANCE REGISTRAR Temperature 36.2 ??C (97.1 ??F) 09/14/2015 10:20 AM GUARD ENTRANCE REGISTRAR Respiratory Rate 16 09/14/2015 12:00 PM GUARD ENTRANCE REGISTRAR Oxygen Saturation 98% 09/14/2015 12:00 PM GUARD ENTRANCE REGISTRAR Inhaled Oxygen Concentration - - Weight 126.9 kg (279 lb 12.2 oz) 09/14/2015 8:01 AM GUARD ENTRANCE REGISTRAR Height 170.2 cm (5' 7) 09/14/2015 8:01 AM GUARD ENTRANCE REGISTRAR Body Mass Index 43.82 09/14/2015 8:01 AM GUARD ENTRANCE REGISTRAR documented in this encounter Discharge Instructions Discharge [...] (PASS WATER). BONE MARROW BIOPSY DISCHARGE INSTRUCTIONS Freddy CEJA & Patrice SYKES HOW SHOULD I CARE [...] will have the results within 72 hours. D ENTRANCE REGISTRAR documented in this encounter Medications at Time [...] days available in the hospital surgical encounter. D ENTRANCE REGISTRAR Source Note - Michelle Washington MD - 08/28/2015 10:09 AM GUARD ENTRANCE REGISTRAR History Chief Complaint: Flank Pain HPI Jennifer [...] to have a bonemarrow biopsy followup with cloth colors examiner/oncologist in the clinic for further evaluation and [...] White blood cell abnormality D72.9 Taylor Peters, maldonado serving as a scribe at 10:10 AM on 08/28/2015 to document services personally performed by Dr. Washington based on my observations and the provider's statements to me. 08/28/2015 [facility] Michelle Washington MD 08/29/15 1002 D ENTRANCE REGISTRAR documented in this encounter Procedure Notes Paolo Smith MD - 09/14/2015 10:19 AM CST Bone [...] and analgesia, were given to the patient. D ENTRANCE REGISTRAR documented in this encounter Nursing Notes Latoya Whitehead RN - 09/14/2015 12:11 PM CST Reviewed follow up with Dr Nolen planned for september 20, information on clinic location and numberreviewed. Pt encouraged to call his clinic for further pain medication refill and for questions regarding results. D ENTRANCE REGISTRAR documented in this encounter Plan of Treatment Not on filedocumented as of this encounter Procedures Procedure Name Priority Date/Time Associated Comments Diagnosis LEUKEMIA LYMPHOMA Routine 09/14/2015 10:10 AM Res ults for this EVALUATION NON CSF GUARD ENTRANCE REGISTRAR procedure are in the results section. NEXT GENERATION Routine 09/14/2015 10:10 AM Resul ts for this SEQUENCING ONCOLOGY GUARD ENTRANCE REGISTRAR procedur e are in the results section. CHROMOSOME ANALYSIS, Routine 09/14/2015 10:10 AM Results for this BONE MARROW, GUARD ENTRANCE REGISTRAR procedure are i n DIAGNOSIS/RELAPSE the result s section. BONE MARROW BIOPSY Routine 09/14/2015 10:10 AM Re sults for this GUARD ENTRANCE REGISTRAR procedure are i n the results section. EKG 12-LEAD, TRACING Routine 09/14/2015 9:55 AM R esults for this ONLY GUARD ENTRANCE REGISTRAR procedure are i n the results section. BIOPSY, BONE MARROW 09/14/2015 9:23 AM massive splenog maureen GUARD ENTRANCE REGISTRAR Special Needs 5'7 278# in H & P CBC WITH PLATELETS & STAT 09/14/2015 8:25 AM GUARD ENTRANCE REGISTRAR Results for this procedure DIFFERENTIAL are in the resu lts section. RETICULOCYTE COUNT STAT 09/14/2015 8:25 AM GUARD ENTRANCE REGISTRAR Results for this procedure are in the resu lts section. documented in this encounter Results Next Generation Sequencing Oncology (09/14/2015 10:10 AM GUARD ENTRANCE REGISTRAR) Component Value Ref Test Analysis Performed Pathologis t Range Method Time At Signature Copath Patient Name: JENNIFER MENDEZ PATH Report MR#: [id number] Specimen #: [id number] Collected: 09/14/2015 10:10 Received: 09/15/2015 09:13 Reported: 09/25/2015 16:37 Ordering Phy(s): PAOLO SMITH Additional Phy(s): RAFI NOLEN TEST(S) REQUESTED: Next [...] of the C-terminal amino acid KDEL sequence. Zua-tt-fhohv i nsertion and/or deletions in exon 9 of the CALR gene are detected in approximately 65-85% of cases of JAK2 and MPL mutation negat otoniel essential thrombocythemia (ET) and primary myelofibrosis (PM F) [2,3]. BCR-ABL1 major and minor transcripts are undetectable (see G 16-9861 and E07-8345). Clinical management should not be based on this assay and in terpretation alone. Correlation with clinical information, histology and other diagnostic tests is indicated. 1. Lopez Jensen, Mina EJ, et al. Somatic CALR mut ations in myeloproliferative neoplasms with nonmutated JAK2. N Engl J Med. 2013;369(25):2391-405. 2. Alton AD, Yeny RL, Kathy T, et al. YKL960 mutations in myeloproliferative and other myeloid disorders: a study of 1 182 patients. Blood. 2006;108(10):3472-6. 3. Jocy T, Lukas H, Yonas , et al. Somatic m utations of calreticulin in myeloproliferative neoplasms. N Engl J Med. 2013;369(25):0459-19. --------- SIGNIFICANT ALTERATIONS --------- Detected Alterations of Known or Potential Pathogenicity: CA LR K385fs Detected Alterations of Uncertain Significance: None --------- GENETIC ALTERATIONS --------- Detected Alterations of Known or Potential Pathogenicity --------- Gene: CALR Alteration: K385fs [id number] Type of Alteration: Insertion - Frameshift Significance: Pathogenic Therapeutic Implications*: None Additional Information: COSMIC: [id number] [http://cancer.warner.ac.uk/cosmic/mutation/overview?uq=0376 056] Allele Frequency: 0.0% dbSNP: N/A References: 1: Andrimariposa H, Dean T, Kayla K, Mary G, Jermaine A, Opal Dillon, Katia A, Wes J, Mana J, Yoni M, Zuri A, Juanito P, Mercy A, M aida T. Distinct clinical characteristics of myeloproliferative neoplasms wit h calreticulin mutations. Haematologica. 2014 Jan;99(7):1184-90. doi: 10.3324/haematol.2014.260479. Epub 2013Dec 14. PubMed PMID: 42707705; PubMed Central PMCID: APM9983351. --------- Detected Alterations of Uncertain Significance --------- [...] Allele frequency of the alteration in the Advanced Photonixes Project (http://www.[employer] [place] [employer].org/ [http://www.1000genomes .org/]) dbSNP: RS number of alteration in dbSNP database (http://www.ncbi.nlm.nih.gov/SNP [http://www.ncbi.nlm.nih.go v/SNP]) --------- TEST DETAILS --------- Methodology --------- Genomic DNA is extracted from the sample, and sequencing lara raries are prepared using an amplicon-based target enrichment method on the Birthday Gorilla Array System. The enriched DNA damion latoya are sequenced on an Illumina MiSeq instrument (version 3 water purification chemist ry, 300 bp paired end reads). FASTQ files are processed through a Nordic Neuro[employer]o designed bioinformatics pipeline termed Scanindel (Kenney et al. Genome Medicine, 2015), which utilizes Cutadapt for adaptor trimming, BWA-MEM and BLAT mapping algorithms for improved indel detection capability, and a modified Freebayes algorithm for variant calling. The NeurogesX t call files (vcf) are filtered by a custom R-script to remove sub-thresh old calls with less than 500X coverage and/or minor allele frequency ( MAF) less than thresholds defined for single nucleotide variants (5-10 %) and insertion/deletion variants (1-5%). Clinically relevant muta tions from this filtered variant list are annotated by a pathologist wi Wudyalogy software and reported. The assay bed file and 5% SNV hotspot list are available upon request. Sequenced regions o f the clinically ordered gene set are identified in the table annie dinh. Gene(NM Reference): Exons covered CALR (NM_004343.3): 9; [...] and its performance characteristics determined by the [facility]. It has not been cleared or approved by the FDA. The laboratory is regulated under CLIA as qualified to perform high-complexity testing. This test is used for clinical purp oses. It should not be regarded as investigational or for research. --------- [employer] Disclaimer --------- This report was produced using software licensed by [employer]. BrightFarms software is designed to be used in clinical ap plications solely as a tool to enhance medical utility and improve oper ational efficiency. The use of BrightFarms software is not a subst itute for medical judgment and [employer] in no way holds itself ou t as having or providing independent medical judgment or diagnostic serv ices. [employer] is not liable with respect to any treatment or diagnosis made in connection with this report. --------- Electronic Signature --------- Electronically signed by: Alejandro Andrews MD, PhD 09/25/2015 Electronically Signed Out By: Alejandro Andrews M.D., [facility] CPT Codes: A: B7294-NFJECM, MPLMPNPNGSOTC, CALRNGSTC2 TESTING LAB LOCATION: [address] [address] COLLECTION SITE: Client: ??[facility] Location: ??RHOR (R) Specimen Anatomical Collection Method Collection Time Receive d Time (Source) Location / / Volume Laterality 09/14/2015 10:10 09/15/2015 9:13 AM GUARD ENTRANCE REGISTRAR AM GUARD ENTRANCE REGISTRAR Paolo Smith MD LAB - GENOMICS Performing Organization Address City/State/ZIP Code Phon e Number COPATH Leukemia lymphoma evaluation (09/14/2015 10:10 AM GUARD ENTRANCE REGISTRAR) Component Value Ref Test Analysis Performed At [facility] gist Range Method Time Signature Copath Patient Name: JENNIFER MENDEZ PATH Report MR#: [id number] Specimen #: [id number] Collected: 09/14/2015 10:10 Received: 09/14/2015 16:12 Reported: 09/15/2015 12:33 Ordering Phy(s): PAOLO ALEA SMITH Additional Phy(s): RAFI NOLEN SPECIMEN(S): Bone marrow, left INTERPRETATION: Bone marrow, [...] developed and its performance characteristics determined by [facility]. ??It has not been cleared or approved by the U .S. Food and Drug Administration. CPT Codes: A: 07572-QS, 16085-UEDIVTL, 13141-03-NAKG07(11), 39693-71-HR OW59(7), 80588-PIOP>15 TESTING LAB LOCATION: [place] [id number] [facility] [address] [place] [address] COLLECTION SITE: Client: ??[facility] Location: ??RHOR (R) Specimen Anatomical Collection Method Collection Time Receive d Time (Source) Location / / Volume Laterality 09/14/2015 10:10 09/14/2015 4:12 AM GUARD ENTRANCE REGISTRAR PM GUARD ENTRANCE REGISTRAR Paolo Smith MD LAB - [facility] SPECIAL DIAG OR DERABLES Performing Organization Address City/State/ZIP Code [facility]on e Number [facility] biopsy (09/14/2015 10:10 AM GUARD ENTRANCE REGISTRAR) Component Value Ref Test Analysis Performed Pathologis t Range Method [facility] Name: JENNIFER MENDEZ PATH Report MR#: [id number] Specimen #: [id number] Collected: 09/14/2015 Received: 09/14/2015 [...] ??No increased blasts or evidence of ac [place] leukemia. See comment and description. Peripheral blood Findings: ??Normochromic normocytic anemia. Leukoerythroblastic blood picture. ??Left shifted granulocyt es and 1% or less circulating blasts. Special Studies: - Immunophenotyping: ?? Reported to show polytypic B cells, no aberrant immunophenotype on T cells, no increase in myeloid blasts, a nd no abnormal myeloid blast population. ??See complete separate r eport IF 16-378. - Cytogenetic Studies: ?? Pending. ??See separate [...] myelodysplastic/myeloproliferative neoplasm. Electronically signed out by: Paolo Smith M.D. CLINICAL HISTORY: Anemia. ??Leukoerythroblastic blood picture. [...] sideroblasts is present (35%). CPT Codes: A: 85188-OXTS, 96707-CVMN, 00133-EVOW, 97654-YTYC, 18227-UVB , 40486-OYIZ, 08318-ZQOR, 64870-JPTFN, 81530-MSBOW, 49246-HKJH S, 33480-MSS, SOH TESTING LAB LOCATION: [address] ??[address] COLLECTION SITE: Client: ??[facility] Location: ??RHOR (R) Specimen Anatomical Collection Method Collection Time Receive d Time (Source) Location / / Volume Laterality 09/14/2015 10:10 09/14/2015 AM GUARD ENTRANCE REGISTRAR 10:45 AM GUARD ENTRANCE REGISTRAR Rafi Nolen MD [facility] Performing Organization Address City/State/ZIP Code Phon e Number COPATH Chromosome bone marrow (09/14/2015 10:10 AM GUARD ENTRANCE REGISTRAR) Component Value Ref Test Analysis Performed Pathologis t Range Method Time At Signature Copath Patient Name: JENNIFER MENDEZ PATH Report MR#: [id number] Specimen #: [id number] Collected: 09/14/2015 10:10 Received: 09/14/2015 17:05 Reported: 09/23/2015 10:45 Ordering Phy(s): RAFI NOLEN Additional Phy(s): PAOLO SMITH TEST(S) REQUESTED: A: Bone Marrow Chromosome Analysis [...] was performed on an uncultured specimen with Roy Molecula r probe to [id number] (13q14.3) / LAMP1 (13q34) (dual color). ISCN: ??46,XX,del(13)(q12q14)[6]/46,XX[14].nuc adrian(H19X327l8,RVVP1e3)[30/200] INTERPRETATION: Six (30%) of the 20 metaphase [...] interphase cells examined to have only one S59T823 signal present. These findings are consistent with [...] its performance jabier acteristics determined by the [facility], [facility]. ??It has not been cleared or approved by the U.S. Food and Drug Administration. Electronically Signed Out By: Rajani Ferreira M.D., [facility] CPT Codes: A: 02452-UDWFQ, 77105-WSBHI, 93101-XCESHVA, 13949-STOYUN B: 87262-MINJ, 24319-VUVZC, 76610-GFAJOFE TESTING LAB LOCATION: [address] [address] COLLECTION SITE: Client: ??[facility] Location: ??RHPRE (R) Specimen Anatomical Collection Method Collection Time Receive d Time (Source) Location / / Volume Laterality 09/14/2015 10:10 09/14/2015 5:05 AM GUARD ENTRANCE REGISTRAR PM GUARD ENTRANCE REGISTRAR Rafi [facility]olen [facility] Performing Organization Address City/State/ZIP Code Phon e Number COPATH EKG 12-lead, tracing only (09/14/2015 9:55 AM GUARD ENTRANCE REGISTRAR) [facility] gist Method Time Signature Interpretation ECG Click View RADIOLOGY Image link RESULTS to view waveform and result Specimen (Source) Anatomical Collection Method Collection Time Re ceived Time Location / / Volume Laterality 09/14/2015 9:55 AM GUARD ENTRANCE REGISTRAR Matthew Donnelly MD ECG ORDERABLES Performing Organization Address City/State/ZIP Code Phon e Number RADIOLOGY RESULTS (ABNORMAL) Reticulocyte count (09/14/2015 8:25 AM GUARD ENTRANCE REGISTRAR) Analysis Performed At [facility] logist Time Signature % Retic 4.4 (H) 0.5 - 2.0 [facility] Absolute Retic 150.2 (H) 25 - 95 [place] 10e9/L [facility] Specimen Anatomical Collection Method Collection Time Receive d Time (Source) Location / / Volume Laterality Blood specimen 09/14/2015 8:25 AM 016 8:31 (specimen) GUARD ENTRANCE REGISTRAR AM GUARD ENTRANCE REGISTRAR Paolo Smith MD LAB - BLOOD ORDERABLES Performing Organization Address City/State/ZIP Code Phon e Number [place] [address] [address] [place] [address] [facility] [address] [phone] (ABNORMAL) CBC with platelets differential (09/14/2015 8:25 AM GUARD ENTRANCE REGISTRAR) Component Value Ref Test Analysis Performed At [facility] gist Range Method Time Signature WBC 4.9 4.0 - [place] 11.0 [facility] 10e9/L [facility] RBC Count 3.42 (L) 3.8 - [place] 5.2 [facility] 10e12/L [facility] Hemoglobin 9.2 (L) 11.7 - [place] 15.7 [facility] g/dL [facility] Hematocrit 29.9 (L) 35.0 - [place] 47.0 % [facility] MCV 87 78 - 100 [facility] MCH 26.9 26.5 - [place] 33.0 pg [facility] MCHC 30.8 (L) 31.5 - [place] 36.5 [facility] g/dL [facility] RDW 21.0 (H) 10.0 - [place] 15.0 % [facility] Platelet Count 219 150 - [place] 450 [facility] 10e9/L [facility] Diff Method Manual [place] Differential [facility] % Neutrophils 86.0 % [facility] % Lymphocytes 3.0 % [facility] % Monocytes 2.0 % [facility] % Eosinophils 3.0 % [facility] % Basophils 0.0 % [facility] % Metamyelocytes 2.0 % [facility] % Myelocytes 3.0 % [facility] % Blasts 1.0 % [facility] Nucleated RBCs 1 (H) 0 /100 [facility] Absolute 4.2 1.6 - [place] Neutrophil 8.3 [facility] 10e9/L [facility] Absolute 0.1 (L) 0.8 - [place] Lymphocytes 5.3 [facility] 10e9/L [facility] Absolute 0.1 0.0 - [facility] Monocytes 1.3 [facility] 10e9/L [facility] Absolute 0.1 0.0 - [facility] Eosinophils 0.7 [facility] 10e9/L [facility] Absolute 0.0 0.0 - [facility] Basophils 0.2 [facility] 10e9/L [facility] Absolute 0.1 (H) 0 10e9/L [facility] Metamyelocytes [facility] Absolute 0.1 (H) 0 10e9/L [facility] Myelocytes [facility] Absolute Blasts 0.0 0 10e9/L [facility] Absolute 0.0 [facility] Nucleated RBC [facility] Anisocytosis Moderate [facility] Poikilocytosis Marked [facility] Polychromasia Slight [facility] RBC Fragments Slight [facility] Teardrop Cells Marked [facility] Ovalocytes Marked [facility] Microcytes Present [facility] Platelet Estimate Normal [facility] Specimen Anatomical Collection Method Collection Time Receive d Time (Source) Location / / Volume Laterality Blood specimen 09/14/2015 8:25 AM 016 8:31 (specimen) GUARD ENTRANCE REGISTRAR AM GUARD ENTRANCE REGISTRAR Paolo Smith MD LAB - BLOOD ORDERABLES Performing Organization Address City/State/ZIP Code Phon e Number [place] [address] [address] [place], [place] [address] [phone] [facility] [address] [phone] documented in this encounter Visit Diagnoses Not on filedocumented in this encounter Administered Medications Inactive Administered Medications - up to 3 most recent administrations Medication Order MAR Action Action Date Dose Rate Site fentaNYL (SUBLIMAZE) injection Given 09/14/2015 11:25 AM GUARD ENTRANCE REGISTRAR 50 mcg 25-50 mcg 25-50 mcg, Intravenous, [...] injection 50 mcg Given 09/14/2015 9:05 AM GUARD ENTRANCE REGISTRAR 50 mcg 50 mcg, Intravenous, ONCE, On Aruna 09/14/15 at 0915, For 1 dose, Pre-procedure oxyCODONE (ROXICODONE) immediate release Given 09/14/2015 11:27 AM GUARD ENTRANCE REGISTRAR 5 mg tablet 5 mg 5 mg, Oral, EVERY 4 HOURS PRN, moderate to severe pain, Starting on Aruna 09/14/15 at 1120, Phase ll documented in this encounter Active and Recently Administered Medications Times are shown in GUARD ENTRANCE REGISTRAR. Scheduled Medication Order 09/12/2015 09/13/2015 09/14/2015 fentaNYL (SUBLIMAZE) injection 50 mcg (COMPLETED) 09 (Given - Provider: Elli Cooper RN - Comment: 50 mcg given) 50 mcg, Intravenous, ONCE, On Aruna 09/14/15 at 0915, For 1 dose, Pr e-procedure PRN Medication Order 09/12/2015 09/13/2015 09/14/2015 fentaNYL (SUBLIMAZE) injection 25-50 mcg (CANCELED) 1125 (Given - Provider: Latoya Whitehead RN) 25-50 mcg, Intravenous, EVERY 15 MIN PRN , other, acute pain while in Phase II, Starting on Aruna 09/14/15 at 1112, MAX cumulative dose = 250 mcg. Use Fentanyl initially, as a short acting agent for acute pa in control. If insufficient, or a longer acting agent is needed, begin Morphine or Hydromorphone if ordered., Phase ll lidocaine BUFFERED 1 % solution (CANCELED) 1016 (Given - Provider: Paolo Smith MD) PRN, Starting Aruna 09/14/15 at 1016, Intra-procedure oxyCODONE (ROXICODONE) immediate release tablet 5 mg (CANCELED) 1127 (Given - Provider: Latoya Whitehead RN) 5 mg, Oral, EVERY 4 HOURS PRN, moderate to severe pain, Starting on Aruna 09/14/15 at 1120, Phase ll documented in this encounter Care Teams Flow Coordinator Relationship Specialty Start Date End Date No Ref-Primary, Physician PCP - General 09/11/15 12/12/15 documented as of this encounter
--- OUTSIDE RECORDS SUMMARY | 2022-05-02 12:22 | XMS_ITS | Encounter Summary ---
:1970 Author Organization [facility] Address [address] [place] [address] Care Team Providers Name Role Phone No Ref-Primary, Physician Primary Care Provider [phone] Reason for Visit Reason Comments Blood Transfusion 1 unit PRBC's Encounter Details Date Type Department Care Team Description 10/02/2017 Infusion [facility], Rj Myeloproli ferative Therapy Visit Cancer Center MD Vern disorder (H) (Primary Dx) [facility] OCOLOGY [facility] HEMATOLOGY [facility] [address] [place] [id number] Social History Tobacco Use Types Packs/Day Years [...] Sign Reading Time Taken Comments Blood Pressure 117/71 10/02/2017 9:58 AM CDT Pulse 92 10/02/2017 8:10 AM CDT Temperature 36.7 ??C (98 ??F) 10/02/2017 9:58 AM CDT Respiratory Rate 18 10/02/2017 9:58 AM CDT Oxygen Saturation 100% 10/02/2017 8:59 AM CDT Inhaled Oxygen Concentration - - Weight - - Height - - Body Mass Index - - documented in this encounter Progress Notes Fatuma Amador RN - 10/02/2017 8:00 AM CDT Infusion Nursing Note: Jennifer Dobbs presents today for 1 unit PRBC's. Patient seen by provider today: No Cvt Tech present during visit today: Not Applicable. Note: Has c/o fatigue and SOB. Has had blood transfusions in the past. Denies reaction. Intravenous Access: Peripheral IV placed. Treatment Conditions: Blood transfusion consent signed 07/02/17. Post Infusion Assessment: Patient tolerated infusion without incident. Site patent and intact, free from redness, edema or discomfort. No evidence of extravasations. Access discontinued per protocol. Discharge Plan: Discharge instructions reviewed with: Patient. Patient discharged in stable condition accompanied by: sister. Departure Mode: Ambulatory. EMMA RITCHIE RN documented in this encounter Plan of Treatment Not on filedocumented as of this encounter Procedures Procedure Name Priority Date/Time Associated Diagnosis Comme nts TRANSFUSE RED BLOOD Routine 10/02/2017 8:39 AM Myeloproliferat otoniel disorder CELL UNIT CDT (H) documented in this encounter Results Transfuse red blood cell unit (10/02/2017 9:59 AM CDT) Rj Longoria MD IP NURSING BLOOD ADMINISTRAT ON Transfuse red blood cell unit (10/02/2017 9:59 AM CDT) Rj Longoria MD IP NURSING BLOOD ADMINISTRAT ON ABO/Rh type and screen (09/30/2017 5:51 PM CDT) [facility] Method Time Signature Units Ordered 1 09/30/2017 [place] 6:44 PM [facility] ABO A 09/30/2017 [place] 6:41 PM [facility] RH(D) Pos [facility] Antibody Neg 09/30/2017 [place] Screen 6:41 PM [facility] Test Valid [facility] 09/30/2017 [facility] Only [facility] 6:44 PM [facility] Specimen 10/03/2017 09/30/2017 [facility] Expires 6:44 PM [facility] Crossmatch Red Blood 09/30/2017 [place] Cells 6:44 PM [facility] Specimen Anatomical Collection Method Collection Time Receive d Time (Source) Location / / Volume Laterality Blood specimen 09/30/2017 5:51 PM 018 5:52 (specimen) CDT PM CDT Rj Longoria MD LAB - BLOOD BANK TEST ORDER Performing Organization Address City/State/ZIP Code Phon e Number [place] [address] [place], [place] [address] [facility] [address] [place], [place] [address] [place] [address] documented in this encounter Visit Diagnoses Diagnosis 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
--- OUTSIDE RECORDS SUMMARY | 2022-05-02 12:22 | XMS_ITS | Encounter Summary ---
:1970 Author Organization [facility] Address [address] [place] [address] Care Team Providers Name Role Phone No Ref-Primary, Physician Primary Care Provider [phone] Encounter Details Date Type Department Care Team Description 12/23/2017 [facility] Edin Hu, Myelopro liferative Encounter [facility] Laboratory disorder (H) [address] [place] [address] HEMATOLOGY [place], [place] [address] [id number] [address] [place] [address] Social History Tobacco Use Types [...] Associated Diagnosis Comme nts BLOOD COMPONENT Routine 12/23/2017 5:51 Myeloproliferative Res ults for this PM CDT disorder (H) procedure are i n the results section. ABO/RH TYPE AND Routine 12/23/2017 5:51 Myeloproliferative Res ults for this SCREEN PM CDT disorder (H) procedure are i n the results section. documented in this encounter Results Blood component (12/23/2017 5:51 PM CDT) [facility] gist Method Time Signature Unit Number [id number] 12/24/2017 [facility] 7:32 AM [facility] Blood Red Blood 12/24/2017 [place] Component Cells 7:32 AM [facility]ukocyte HOSPITAL Reduced Division 00 12/24/2017 [facility] Number 7:32 AM [facility] Status of Released to 12/24/2017 [facility] Unit care unit 11:52 PM [facility] Blood Product [id number] 12/24/2017 [facility] Code 7:32 AM [facility] Unit Status ISS [facility] Specimen Anatomical Collection Method Collection Time Receive d Time (Source) Location / / Volume Laterality 12/23/2017 5:51 PM 8 5:52 CDT PM CDT Guru Antony MD LABORATORY Performing Organization Address City/State/ZIP Code Phon e Number M [facility] [address] [place], [place] [address] [facility] [address] [place], [place] [address] [address] [phone] ABO/Rh type and screen (12/23/2017 5:51 PM CDT) Patholo gist Method Time Signature Units Ordered 1 12/24/2017 [place] 7:32 AM [facility] ABO A 12/23/2017 [facility] 6:36 PM [facility] RH(D) Pos [facility] Antibody Neg 12/23/2017 [facility] Screen 6:36 PM [facility] Test Valid [place] 12/23/2017 [facility] Only At [facility] 6:37 PM [facility]OSPITAL Specimen 12/26/2017 12/23/2017 [facility] Expires 6:37 PM [facility] Crossmatch Red Blood 12/24/2017 [facility] Cells 7:32 AM [facility] Specimen Anatomical Collection Method Collection Time Receive d Time (Source) Location / / Volume Laterality Blood specimen 12/23/2017 5:51 PM 018 5:52 (specimen) CDT PM CDT Guru Antony MD LAB - BLOOD BANK TEST ORDER Performing Organization Address City/State/ZIP Code Phon e Number M [facility] [address] [place] [address] [facility] [address] [phone] documented in this encounter 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
--- OUTSIDE RECORDS SUMMARY | 2022-05-02 12:23 | XMS_ITS | Encounter Summary ---
:1970 Author Organization [facility] Address [address] [place] [address] Care Team Providers Name Role Phone No Ref-Primary, Physician Primary Care Provider [phone] Reason for Visit Reason Comments Flank Pain Encounter Details Date Type Department Care Team Description 08/28/[address] [facility] Michelle Washington MD Flank pain; [facility] Emergency Dep t [facility] Abdominal pain, left lateral ; [address] [place] Splenomegaly; [place], [place] [address] Anemia, unspecified anemia type; [id number] [place] [address] White blood cell abnormality [phone] (Wo rk) Social History Tobacco Use Types Packs/Day Years Used Date Smoking Tobacco: Former Alcohol Use Standard Drinks/Week Comments Yes 0 (1 standard drink = 0.6 oz pure alcoho l) social Sex Assigned at Date Recorded Not on file documented as of this encounter Last Filed Vital Signs Vital Sign Reading Time Taken Comments Blood Pressure 137/86 08/28/2015 2:40 PM CALF SKINNER Pulse 85 08/28/2015 10:06 AM [facility] Temperature 36.8 ??C (98.2 ??F) 08/28/2015 10:06 AM [facility] SK[facility]NER Respiratory Rate 18 08/28/2015 10:06 AM [facility]NER Oxygen Saturation 98% 08/28/2015 2:40 PM [facility]NER Inhaled Oxygen Concentration - - Weight 126.1 kg (278 lb) 08/28/2015 10:06 AM [facility]NER Height 170.2 cm (5' 7) 08/28/2015 10:06 AM [facility]NER Body Mass Index 43.54 08/28/2015 10:06 AM CALF SKINNER documented in this encounter Discharge Instructions Discharge InstructionsMichelle Washington MD - 08/28/2015 12:17 PM CST *Get plenty of rest and avoid strenuous activities. Avoid contact sports. *Take medications as prescribed. Tylenol for pain and oxycodone for pain not relieved by percocet. Zofran for nausea. Stool softener to prevent constipation. *Follow-up with your doctor for a recheck within 12-36 hours. Follow-up with Dr. Antony's or one of his partners within one week for an evaluation. You will likely need a bone marrow biopsy. Some specialized labs are in process and the apprentice pattern maker can follow-up on these. *Return to the ER if you develop fever, worsening pain, difficulty in breathing, faint or feel like you will faint or become worse in any way. Discharge Instructions Abdominal Pain Abdominal pain can be caused by many things. Your evaluation today does not show the exact cause foryour pain. Your doctor today has decided that it is unlikely your pain is due to a life threatening problem, or a problem requiring surgery or hospital admission. Sometimes those problems cannot be found right away, so it is very important that you follow up as directed. Sometimes only the changes which occur over time allow the cause of your pain to be found. Return to the Emergency Department for a recheck in 8-12 hours if your pain continues. If your pain gets worse, changes in location, or feels different, return to the Emergency Department right away. ADULTS: Return to the Emergency Department right away if: ??? You get an oral temperature above 102oF or as directed by your doctor. ??? You have blood in your stools (bright red or black, tarry stools). ??? You keep throwing up or can???t drink liquids. ??? You see blood when you throw up. ??? You can???t have a bowel movement or you can???t pass gas. ??? Your stomach gets bloated or bigger. ??? Your skin or the whites of your eyes look yellow. ??? You faint. ??? You have bloody, frequent or painful urination. ??? You have new symptoms or anything that worries you. CHILDREN: Return to the Emergency Department right away if your child has any of the above-listed symptoms or the following: ??? Pushes your hand away or screams/cries when his/her belly is touched. ??? You notice your child is very fussy or weak. ??? Your child is very tired and is too tired to eat or drink. ??? Your child is dehydrated. Signs of dehydration can be: o Your infant has had no wet diapers in 4-5 hours. o Your older child has not passed urine in 6-8 hours. o Your infant or child starts to have dry mouth and lips, or no saliva or tears. WOMEN: Return to the Emergency Department right away if you have any of the above-listed symptoms or the following: ??? You have bleeding, leaking fluid or passing tissue from the vagina. ??? You have worse pain or cramping, or pain in your shoulder or back. ??? You have vomiting that will not stop. ??? You have painful or bloody urination. ??? You have a temperature of 100oF or more. ??? Your baby is not moving as much as usual. ??? You faint. ??? You get a bad headache with or without eye problems and abdominal pain. ??? You have a convulsion or seizure. ??? You have unusual discharge from your vagina and abdominal pain. Abdominal pain is pretty common during . Your pain may or may not be related to your . You should follow-up closely with your OB doctor so they can evaluate you and your baby. Until you follow-up with your regular doctor, do the following: ??? Avoid sex and do not put anything in your vagina. ??? Drink clear fluids. ??? Only take medications approved by your doctor. MORE INFORMATION: Appendicitis: A possible cause of abdominal pain in any person who still has their appendix is acuteappendicitis. Appendicitis is often hard to diagnose. Testing does not always rule out early appendicitis or other causes of abdominal pain. Close follow-up with your doctor and re-evaluations may be needed to figure out the reason for your abdominal pain. Follow-up: It is very important that you make an appointment with your clinic and go to the appointment. If you do not follow-up with your primary doctor, it may result in missing an important development which could result in permanent injury or disability and/or lasting pain. If there is any problemkeeping your appointment, call your doctor or return to the Emergency Department. Medications: Take your medications as directed by your doctor today. Before using icmy-kme-blmikke medications, ask your doctor and make sure to take the medications as directed. If you have any questions about medications, ask your doctor. Diet: Resume your normal diet as much [...] have shown that probiotics help prevent diarrhea and other intestine problems (including C. diff [...] call or return to the Emergency Department. Opioid Medication Information Pain medications are among the most commonly prescribed medicines, so we are including this information for all our patients. If you did not receive pain medication or get a prescription for pain medicine, you can ignore it. You may have been given a prescription for an opioid (narcotic) pain medicine and/or have received apain medicine while here in the Emergency Department. These medicines can make you drowsy or impaired. You must not drive, operate dangerous equipment, or engage in any other dangerous activities whiletaking these medications. If you drive while taking these medications, you could be arrested for DUI, or driving under the influence. Do not drink any alcohol while you are taking these medications. Opioid pain medications can cause addiction. If you have a history of chemical dependency of any type, you are at a higher risk of becoming addicted to pain medications. Only take these prescribed medications to treat your pain when all other options have been tried. Take it for as short a time and asfew doses as possible. Store your pain pills in a secure place, as they are frequently stolen and provide a dangerous opportunity for children or visitors in your house to start abusing these powerful medications. We will not replace any lost or stolen medicine. As soon as your pain is better, you should flush all your remaining medication. Many prescription pain medications contain Tylenol?? (acetaminophen), including Vicodin??, Tylenol #3??, [place]??, Lortab??, and Percocet??. You should not take any extra pills of Tylenol?? if you are using these prescription medications or you can get very sick. Do not ever take more than 3000 mg of acetaminophen in any 24 hour period. All opioids tend to cause constipation. Drink plenty of water and eat foods that have a lot of fiber, such as fruits, vegetables, prune juice, apple juice and high fiber cereal. Take a laxative if you don???t move your bowels at least every other day. Miralax??, Milk of Magnesia, Colace??, or Senna?? can be used to keep you regular. Remember that you can always come back to the Emergency Department if you are not able to see your regular doctor in the amount of time listed above, if you get any new symptoms, or if there is anything that worries you. SKINNER documented in this encounter Medications at Time [...] for nausea documented as of this encounter ED Notes Michelle Washington MD - 08/28/2015 10:09 AM CST History Chief Complaint: Flank Pain HPI Jennifer [...] to have a bonemarrow biopsy followup with apprentice pattern maker/oncologist in the clinic for further evaluation and [...] D64.9 5. White blood cell abnormality D72.9 ITaylor, maldonado serving as a scribe at 10:10 AM on 08/28/2015 to document services personally performed by Dr. Washington based on my observations and the provider's statements to me. 08/28/2015 [facility] EMERGENCY DEPARTMENT Michelle Washington MD 08/29/15 1002 SKINNER Monica Chiu RN - 08/28/2015 10:05 AM CST Pt c/o severe left flank pain for a week. Pt c/o feeling bloated, took a laxative on and had some mild relief of pain after the BM but now the pain is back. Normal BM today. C/o slight nausea when the pain gets severe. Denies dysuria. SKINNER documented in this encounter Plan of Treatment Not on filedocumented as of this encounter Procedures Procedure Name Priority Date/Time Associated Comments Diagnosis BCR ABL1 MAJOR Routine 08/28/2015 1:37 PM Results for this BREAKPOINT QUANT P210 [facility] proced ure are in the results section. LACTATE DEHYDROGENASE STAT 08/28/2015 1:10 PM Flank pain Results for this [facility]NER procedure are i n the results section. ROUTINE UA WITH STAT 08/28/2015 12:23 Flank pain Results for this MICROSCOPIC PM [facility]NER procedure are i n the results section. BCR ABL1 MINOR Routine 08/28/2015 12:12 Results f or this BREAKPOINT QUANT P190 PM [facility] proced ure are in the results section. NEXT GENERATION Routine 08/28/2015 12:11 Results for this SEQUENCING ONCOLOGY PM [facility]NER procedur e are in the results section. CT ABDOMEN PELVIS W/O STAT 08/28/2015 11:33 Re sults for this CONTRAST AM [facility]NER procedure are i n the results section. CBC WITH PLATELETS & STAT 08/28/2015 10:33 Flank pain Res ults for this DIFFERENTIAL AM [facility]NER procedure are i n the results section. RETICULOCYTE COUNT Routine 08/28/2015 10:33 Flank pain Resul ts for this AM [facility]NER procedure are i n the results section. BLOOD MORPHOLOGY Routine 08/28/2015 10:33 Results for this PATHOLOGIST REVIEW AM [facility] procedure are in the results section. BASIC METABOLIC PANEL STAT 08/28/2015 10:33 Re sults for this AM [facility]NER procedure are i n the results section. documented in this encounter Results BCR ABL1 major breakpoint quant CML (08/28/2015 1:37 PM CALF SKINNER) Component Value Ref Test Analysis Performed At [facility] gist Range Method Time Signature Copath Report Patient Name: JENNIFER MENDEZ MR#: [id number] Specimen #: [id number] Collected: 08/28/2015 13:37 Received: 08/29/2015 12:38 Reported: 09/01/2015 15:06 Ordering Phy(s): MICHELLE C CHO TEST(S) REQUESTED: BCR-ABL,CMLQuantitative Major SPECIMEN DESCRIPTION: blood CLINICAL COMMENTS: Anemia, splenomegaly abnormal diff METHODOLOGY: Total cellular RNA was extracted from above spe cimen and reverse transcribed to cDNA via random hexamer priming. The cDNA was amplified by a real time quantitative PCR assay (using an [employer] 7900HT Real-time analyzer) with an ABL1 specific primer and a prime r specific for exon 13 of the BCR gene. An internal control (ABL1 gene) , was amplified to confirm the presence of patient RNA. The presen ce of at least 100 copies of the ABL1 gene was considered a cutoff va lue for determining an adequate specimen for quantitative analysis o f the BCR-ABL1 translocation. The results are reported as a ratio of the number of BCR-ABL1 copies to the number of ABL1 copies to no rmalize for differences in amount of RNA in the reaction and enable seri al monitoring of the BCR-ABL1 transcript numbers. BCR-ABL1 MAJOR(p210) QUANTITATION RESULTS: BCR-ABL1/ABL1 Major(p210): ?UNDETECTABLE INTERNAL CONTROL (NUMBER OF ABL1 TRANSCRIPTS): 3,410 INTERPRETATION: Molecular testing performed on submitted Blood. BCR-ABL1 transcripts of the major (p210) breakpoint cluster regions are undetectable in this sample. COMMENTS: The limit of sensitivity of the quantitative BCR-ABL1 major (p210) assay is 10 copies of the BCR-ABL transcripts. Individual measurem ents of BCR-ABL1 transcript levels yield limited prognostic informat ion; serial monitoring of BCR-ABL1 transcript levels (at 3 or 6 month in tervals) allows for clinically relevant assessment of response to the rapy at the molecular level. A major molecular response has been defined as a 3-log decrease in BCR-ABL1/ABL1 from a baseline value. The patient 's own BCR-ABL1/ABL1 ratio performed by the same laboratory serves as the definitive baseline from which a three log decrease is measu red. However, in practice this value is not always available. The refore the concept of the laboratory-specific mean pre-treatment baseli ne value has been established. In our laboratory, the mean pre-treatment BCR-ABL1/ABL1 in CML patients is 122% (range: 68% to 217%). Therefore, a three log reduction from the mean pre-treatment baseline in our laboratory is a BCR-ABL1/ABL1 value of 0.1%. References: ??N Engl J Med 2003; 17:2318, Int J Oncol 2006;2 8:1099, Gmhfv3961;108:28 Please note, comparisons of bone marrow and blood samples ma y not be clinically appropriate. This test was developed and its performance characteristics determined by the [facility], [facility]. It has not been cleared or approved by the FDA. The laboratory is regulated under CLIA as qualified to perform high-complexity testing. This test is used for clinical purp oses. It should not be regarded as investigational or for research. Electronically Signed Out By: Dajuan Jarvis MD, PhD ??[facility] CPT Codes: A: I1847-KBTPDH, [id number] TESTING LAB LOCATION: [address] [place] [id number] COLLECTION SITE: Client: ??[facility] Location: ??RHERB (R) Specimen Anatomical Collection Method Collection Time Receive d Time (Source) Location / / Volume Laterality Blood specimen 08/28/2015 1:37 PM 016 (specimen) CALF SKINNER 12:38 PM CALF SKINNER Michelle Washington MD LAB - GENOMICS Performing Organization Address [facility] Phon e Number COPATH (ABNORMAL) Lactate Dehydrogenase (08/28/2015 1:10 PM CALF SKINNER) [facility] Signature Lactate 579 (H) 81 - 234 [place] Dehydrogenase U/L [facility] Specimen Anatomical Collection Method Collection Time Receive d Time (Source) Location / / Volume Laterality Blood specimen 08/28/2015 1:10 PM 016 1:36 (specimen) [facility] PM [facility] Michelle Washington MD LAB - BLOOD ORDERABLES Performing Organization Address [facility] Phon e Number [place] [address] [place] [address] [facility] [address] [phone] (ABNORMAL) UA with Microscopic (08/28/2015 12:23 PM CALF SKINNER) [facility] Method Time Signature Color Urine Yellow [facility] Appearance Urine Slightly [facility] Cloudy [facility] Glucose Urine Negative NEG mg/dL [facility] Bilirubin Urine Negative NEG [facility] Ketones Urine Negative NEG mg/dL [facility] Specific [place] 1.017 1.003 - [facility] Urine 1.035 [facility] Blood Urine Negative NEG [facility] pH Urine 5.0 5.0 - 7.0 [facility] pH [facility] Protein Albumin 10 (A) NEG mg/dL [facility] Urobilinogen Normal 0.0 - 2.0 [facility] mg/dL mg/dL [facility] Nitrite Urine Negative NEG [facility] Leukocyte Trace (A) NEG [facility] Esterase Urine [facility] Source Midstream [facility] Urine [facility] WBC Urine <1 0 - 2 [facility] RBC Urine <1 0 - 2 [facility] Squamous <1 0 - 1 [facility] Epithelial /HPF /HPF [facility] Mucous Urine Present (A) NEG /LPF [facility] Uric Acid Few (A) NEG /HPF [facility] Crystals [facility] Specimen Anatomical Collection Method Collection Time Receive d Time (Source) Location / / Volume Laterality Urine specimen URINE SPECIMEN 08/28/2015 12:23 016 (specimen) OBTAINED BY CLEAN PM [facility]NER 12:[address] CATCH PROCEDURE / Unknown Michelle Washington MD LAB - URINE ORDERABLES Performing Organization Address City/State/ZIP Code Phon e Number [place] [address] [place] [address] [place] [phone] BCR ABL1 Minor Breakpoint Quant ALL (08/28/2015 12:12 PM CALF SKINNER) Component Value Ref Test Analysis Performed At [facility] Range Method Time Signature Copath Report Patient Name: JENNIFER MENDEZ MR#: [id number] Specimen #: [id number] Collected: 08/28/2015 12:12 Received: 08/29/2015 12:42 Reported: 08/31/2015 14:55 Ordering Phy(s): MICHELLE WASHINGTON TEST(S) REQUESTED: BCR-ABL1 Minor Quantitative p190 SPECIMEN DESCRIPTION: blood METHODOLOGY: Total cellular RNA was extracted from above spe cimen and reverse transcribed to cDNA via random hexamer priming. The cDNA was amplified by a real time quantitative PCR assay (using an [employer] 7900HT Real-time analyzer) with an ABL1 specific primer and a prime r specific for exon 1 of the BCR gene. An internal control (ABL1 gene), was amplified to confirm the presence of patient RNA. The presen ce of at least 100 copies of the ABL1 gene was considered a cutoff va lue for determining an adequate specimen for quantitative analysis o f the BCR-ABL1 translocation. The results are reported as a ratio of the number of BCR-ABL1 copies to the number of ABL1 copies to no rmalize for differences in amount of RNA in the reaction and enable seri al monitoring of the BCR-ABL1 transcript numbers. BCR-ABL1 MINOR(p190) QUANTITATION RESULTS: BCR-ABL1/ABL1 minor(p190): ?UNDETECTABLE INTERNAL CONTROL (NUMBER OF ABL1 TRANSCRIPTS): 3,630 INTERPRETATION: Molecular testing performed on submitted Blood. BCR-ABL1 transcripts of the minor(p190) breakpoint cluster r egions are undetectable in this sample. COMMENTS: The limit of sensitivity of the quantitative BCR-ABL1 assay is 10 copies of the BCR-ABL1 transcripts. Please note, comparisons of bone marrow and blood samples ma y not be clinically appropriate. This test was developed and its performance characteristics determined by the [facility], [facility]. It has not been cleared or approved by the FDA. The laboratory is regulated under CLIA as qualified to perform high-complexity testing. This test is used for clinical purp oses. It should not be regarded as investigational or for research. Electronically Signed Out By: Dajuan Jarvis MD, PhD ??[facility] CPT Codes: A: 12312-[id number], [id number] TESTING LAB LOCATION: [address] [phone] COLLECTION SITE: Client: ??[facility] Location: ??RHERB (R) Specimen Anatomical Collection Method Collection Time Receive d Time (Source) Location / / Volume Laterality Blood specimen 08/28/2015 12:12 6 (specimen) PM CALF SKINNER 12:42 PM CALF SKINNER Michelle Washington MD LAB - GENOMICS Performing Organization Address City/State/ZIP Code Phon e Number COPATH Next Generation Sequencing Oncology: Individual Genes; JAK2 (08/28/2015 12:11 PM CALF SKINNER) Component Value Ref Test Analysis Performed Pathologis t Range Method Time At Signature Copath Patient Name: JENNIFER MENDEZ PATH Report MR#: [id number] Specimen #: [id number] Collected: 08/28/2015 12:11 Received: 08/29/2015 12:36 Reported: 09/06/2015 16:40 Ordering Phy(s): MICHELLE WASHINGTON TEST(S) REQUESTED: Next Generation Sequencing Oncology - JAK2 SPECIMEN DESCRIPTION: blood CLINICAL COMMENTS: Anemia, splenomegaly, abnormal diff INTERPRETATION OF RESULTS --------- The JAK2 V617F mutation was NOT identified. NO mutations were identified in exon 12 of JAK2. JAK2 mutations, either the V617F mutation or functionally si milar mutations in exon 12, occur in virtually all patients with p olycythemia vera. However, the V617F JAK2 mutation is not specific for p olycythemia vera and can occur in other myeloproliferative neoplasms and occasionally in other myeloid neoplasms. The absence of the V617F mutation in the JAK2 gene does not rule out the clinical grace gnosis of other myeloproliferative neoplasms (MPN) including essential thrombocythemia(ET) and primary myelofibrosis(PMF). It is es timated that about 43% of ET and 50% of PMF can be JAK2 V617F mutation ne gative. Mutational analysis of CALR and MPL may be helpful in the di agnosis of JAK2 negative MPN. BCR-ABL1 transcripts (both p190 and p210) are undetectable ( please see [id number], [id number]). Clinical management should not be based on this assay and in terpretation alone. Correlation with clinical information, histology and other diagnostic tests is indicated. References: 1. Tanner SH, Som E, Eduardo NL, et al. WHO Classificatio n of Tumours of Haematopoietic and Lymphoid Tissues. [place], [place]: IARC P ress; 2008. --------- SIGNIFICANT ALTERATIONS --------- Detected Alterations of Known or Potential Pathogenicity: No ne Detected Alterations of Uncertain Significance: None --------- GENETIC ALTERATIONS --------- Detected Alterations of Known or Potential Pathogenicity --------- None --------- Detected Alterations of Uncertain Significance --------- None --------- Genes with No Detected Alterations of the Amino Acid Sequenc e: --------- JAK2 --------- SELECTED ALTERATION DETAILS --------- None TEST DETAILS --------- Methodology --------- Genomic DNA is extracted from the sample, and sequencing lara raries are prepared using an amplicon-based target enrichment on the [employer] Access Array System. The enriched DNA libraries are sequenced on an Illumina MiSeq instrument (version 3 chemistry). FASTQ fi les are processed through a custom designed bioinformatics pipeline termed Scanindel, which utilizes Cutadapt for adaptor trimming, BWA -MEM and BLAT mapping algorithms for improved indel detection capcameron ity, and a modified Freebayes algorithm for variant calling. The [facility] t call files (vcf) are analyzed by a custom R-script for filtering of arti iant calls against a condensed database of non-synonmous variants of th e targeted genes from the publically available COSMIC database. Filteri ng in the R-script also excludes variants with less than 500X coverage and/or minor allele frequency (MAF) less than thresholds defined fo r single nucleotide variants (5-10%) and insertion/deletion variants (1-5%). Clinical calls are made from this filtered variant list in c linically ordered genes. Sequenced regions are identified in the table below. Gene(NM Reference): Exons covered JAK2 ([id number]): 12,14; Less than 500X coverage was achieved in [...] and its performance characteristics determined by the [facility], [facility]. It has not been cleared or approved by the FDA. The laboratory is regulated under CLIA as qualified to perform high-complexity testing. This test is used for clinical purp oses. It should not be regarded as investigational or for research. --------- [employer] Disclaimer --------- This report was produced using software licensed by [employer]. [employer] software is designed to be used in clinical ap plications solely as a tool to enhance medical utility and improve oper ational efficiency. The use of [employer] software is not a subst itute for medical judgment and [employer] in no way holds itself ou t as having or providing independent medical judgment or diagnostic serv ices. [employer] is not liable with respect to any treatment or diagnosis made in connection with this report. --------- Electronic Signature --------- Electronically signed by: Karmen Garcia MD 09/06/2015 Electronically Signed Out By: Karmen Garcia MD CPT Codes: A: [id number], [id number] TESTING LAB LOCATION: [address] [address] COLLECTION SITE: Client: ??[facility] Location: ??[facility] (R) Specimen Anatomical Collection Method Collection Time Receive d Time (Source) Location / / Volume Laterality Blood specimen 08/28/2015 12:11 6 (specimen) PM [facility]F [facility]INNER 12:36 PM [facility]NER Michelle Washington MD LAB - GENOMICS Performing Organization Address City/State/ZIP Code Phon e Number COPATH CT Abdomen Pelvis w/o Contrast (stone protocol) (08/28/2015 11:33 AM [facility]NER) Anatomical Region Laterality Modality Abdomen/Pelvis, SUBRAD CT BODY, UMP CT ABDOMEN PELVIS Computed Tomography Specimen (Source) Anatomical Location Collection Method / Collectio n Time Received Time / Laterality Volume Impressions 08/28/2015 11:44 AM [facility] IMPRESSION: 1. Marked splenomegaly. 2. Cholelithiasis. 3. Remainder of the scan is negative. BABAK ALEX MD Narrative 08/28/2015 11:[address] ABDOMEN/PELVIS WITHOUT CONTRAST 08/28/2015 11:33 AM HISTORY: Left flank pain. TECHNIQUE: Scans were obtained from the diaphragm through the pelvis without IV contrast. COMPARISON: None. FINDINGS: Marked splenomegaly with the s pleen measuring 20 cm in length. Liver, spleen, and pancreas are otherwise unremarkable. Multiple partially calcified gallstones within the gallbladder. Gallbladder is normal in size without ev idence of cholelithiasis. Both kidneys and ureters are normal without e vidence of calculus or obstruction. Colon and small bowel are n ormal. Appendix is normal. No abdominal or pelvic adenopathy. No worri some skeletal abnormality identified. Remainder of the scan is neg ative. Procedure Note Babak Alex MD - 08/28/2015F ormatting of this note might be different from the original. CT ABDOMEN/PELVIS WITHOUT CONTRAST 2015 11:33 AM HISTORY: Left flank pain. TECHNIQUE: Scans were obtained from the diaphragm through the pelvis without IV contrast. COMPARISON: None. FINDINGS: Marked splenomegaly with the s pleen measuring 20 cm in length. Liver, spleen, and pancreas are otherwise unremarkable. Multiple partially calcified gallstones within the gallbladder. Gallbladder is normal in size without ev idence of cholelithiasis. Both kidneys and ureters are normal without e vidence of calculus or obstruction. Colon and small bowel are n ormal. Appendix is normal. No abdominal or pelvic adenopathy. No worri some skeletal abnormality identified. Remainder of the scan is neg ative. IMPRESSION: 1. Marked splenomegaly. 2. Cholelithiasis. 3. Remainder of the scan is negative. BABAK ALEX MD Michelle Washington MD IMG CT ORDERABLES (ABNORMAL) Reticulocyte count (08/28/2015 10:33 AM [facility]NER) Analysis Performed At Patho logist Time Signature % Retic 3.4 (H) 0.5 - 2.0 [facility] % [facility] Absolute Retic 127.3 (H) 25 - 95 [place] 10e9/L [facility] Specimen Anatomical Collection Method Collection Time Receive d Time (Source) Location / / Volume Laterality 08/28/2015 10:33 08/28/2015 AM [facility]NER 10:49 AM [facility] SKINNER Michelle Washington MD LAB - BLOOD ORDERABLES Performing Organization Address City/State/ZIP Code Phon e Number M [facility] [address], [place] [address] [facility] [address] [phone] Blood Morphology Pathologist Review (08/28/2015 10:33 AM [facility]NER) Component Value Ref Test Analysis Performed Pathologis t Range Method Time At Signature Copath Patient Name: JENNIFER MENDEZ PATH Report MR#: [id number] Specimen #: [id number] Collected: 08/28/2015 Received: 08/28/2015 Reported: 08/28/2015 15:39 Ordering Phy(s): MICHELLE WASHINGTON TEST(S): Peripheral Smear Morphology FINAL DIAGNOSIS: Peripheral blood morphology: - Leukoerythroblastic reaction associated with mild normocyt ic hypochromic anemia, marked anisopoikilocytosis with frequent dacrocytes (teardrops), large platelets and granulocytes with left shif t. COMMENT: The morphologic findings in association with the clinical de scription of splenomegaly point towards a myeloproliferative neoplasm suc h as primary myelofibrosis. Myelophthisic bone marrow disorders also shou ld be considered. ??Correlation with clinical findings and hematol ogy consult is recommended. ??The testing should include next generation sequencing- Oncology- MPN: With testing for ABL-BCR, JACK2, CALR and MPL . Electronically signed out by: Audi Melissa M.D. CLINICAL HISTORY: 45 years old female with anemia, abnormal white blood cell c ount differential and splenomegaly. PERIPHERAL BLOOD DATA: Patient Value (Reference Range >18 year old female) 7.2 ?WBC ?(4.0-11.0 x 10*9/L) 3.87 ? RBC ?(3.8-5.2 x 10*12/L) 10.6 ? HGB ?(11.7-15.7 g/dL) 33.9 ? HCT ?(35.0-47.0 %) 88 ? MCV ?(78-100fL) 27.4 ? MCH ?(26.5-33.0 pg) 31.3 ? MCHC ?(31.5-36.5 g/dL) 20.2 ? RDW ?(10.0-15.0 %) 323 ?PLT ?(150-450 x 10*9/L) 3.4 ?Retic ?(0.5-2.0%) PERIPHERAL BLOOD DIFFERENTIAL (Reference ranges >18 year old) Percent 79.0 ?Neutrophils, segmented and bands 11.0 ?Lymphocytes 4.0 ? Monocytes 0.0 ? Eosinophils 0.0 ? Basophils 6.0 ? Immature granulocytes Absolute 5.7 ?Neutrophils, segmented and bands ?(1.6 - 8.3 x 10*9/L) 0.8 ?Lymphocytes ?(0.8 - 5.3 x 10*9/L) 0.3 ?Monocytes ?(0 -1.3 x 10*9/L) 0.0 ?Eosinophils ?(0 - 0.7 x 10*9/L) 0.0 ?Basophils ?(0 - 0.2 x 10*9/L) 0.5 ?Immature granulocytes PERIPHERAL MORPHOLOGY: ERYTHROCYTES: The hemoglobin is recorded as 10.6 g/dL. ??The erythrocytes are normocytic hypochromic per indices. ??There is marked anisopoikilocytosis with dacrocytes (tear drops), ovalocytes and macrocytes. ??There is increased polychromatophilic (reticul ocytes: 3.4%). ??Circulating nucleated red blood cells are seen. LEUKOCYTES: The white blood cell count is recorded as 7200. ??The differential is characterized by slight left shift with meta myelocytes, myelocytes and an occasional immature blast--like cell. ??Th e eosinophils, basophils, monocytes and lymphocytes show matur e morphology. PLATELETS: The platelet count is recorded as 323,000. ??Over all, the platelets show normal size and granulation. ??Large and hypo granular forms are seen. (Dictated by Audi Melissa MD 08-29-2015 @ 3:39 PM). CPT Codes: A: [id number] TESTING LAB LOCATION: [address] [place], [place] ??[address] COLLECTION SITE: Client: ??[facility] Location: ??[facility] (R) Specimen Anatomical Collection Method Collection Time Receive d Time (Source) Location / / Volume Laterality Blood specimen 08/28/2015 10:33 6 2:01 (specimen) AM [facility]NER PM [facility]NER Michelle Washington MD LAB - BEAKER AP Performing Organization Address City/[facility]/ZIP Code Phon e Number COPATH (ABNORMAL) Basic metabolic panel (08/28/2015 10:33 AM [facility]NER) P athologist Signature Sodium 141 133 - 144 [facility] mmol/L [facility] Potassium 4.1 3.4 - 5.3 [facility] mmol/L [facility] Chloride 106 94 - 109 [facility] mmol/L [facility] Carbon Dioxide 29 20 - 32 [facility] mmol/L [facility] Anion Gap 6 3 - 14 [facility] mmol/L [facility] Glucose 101 (H) 70 - 99 [facility] mg/dL [facility] Urea Nitrogen 18 7 - 30 [facility] mg/dL [facility] Creatinine 0.71 0.52 - [facility] 1.04 mg/dL [facility] GFR Estimate 88 >60 [facility] mL/min/1.[address] Comment: Non GFR Calc GFR Estimate If Black >90 >60 mL/min/1.7m2 F [facility] GFR Calc HOSP ITAL Calcium 9.2 8.5 - 10.1 mg/dL [facility] Specimen Anatomical Collection Method Collection Time Receive d Time (Source) Location / / Volume Laterality Blood specimen 08/28/2015 10:33 6 (specimen) AM [facility] 10:49 AM [facility]NER Michelle Washington MD LAB - BLOOD ORDERABLES Performing Organization Address City/State/ZIP Code Phon e Number M [facility] [address], [place] [address] [facility] [address] [place], [place] [address] [facility] [phone] (ABNORMAL) CBC with platelets differential (08/28/2015 10:33 AM [facility]NER) Component Value Ref Test Analysis Performed Pathologis t Range Method Time At Signature WBC 7.2 4.0 - [facility] 11.0 [facility] 10e9/L [facility] RBC Count 3.87 3.8 - [facility] 5.2 [facility] 10e12/L [facility] Hemoglobin 10.6 (L) 11.7 - [facility] 15.7 [facility] g/dL [facility] Hematocrit 33.9 (L) 35.0 - [facility] 47.0 % [facility] MCV 88 78 - [facility] 100 fl [facility] MCH 27.4 26.5 - [facility] 33.0 pg [facility] MCHC 31.3 (L) 31.5 - [facility] 36.5 [facility] g/dL [facility] RDW 20.2 (H) 10.0 - [facility] 15.0 % [facility] Platelet Count 323 150 - [facility] 450 [facility] 10e9/L [facility] Diff Method Manual Differential [facility] Slide reviewed by Pathologist KASUHAL Marked anisopoikilocytosis, macrocytes, elliptoc ytes, tear drops, circulating [facility]OSPITAL NRBCs. Left shift, including rare immature blast like cell Platelets OK with large forms present. Leukoerythroblastic r eaction. Audi Melissa M.D., Pathologist [facility] % Neutrophils 79.0 % [facility] Comment: Increased Bands % Lymphocytes 11.0 % [facility] % Monocytes 4.0 % [facility] % Eosinophils 0.0 % [facility] % Basophils 0.0 % [facility] % Metamyelocytes 1.0 % [facility] % Myelocytes 4.0 % [facility] % Promyelocytes 1.0 % [facility] Absolute Neutrophil 5.7 1.6 - 8.3 10e9/L [facility] Absolute Lymphocytes 0.8 0.8 - 5.3 10e9/L [facility] Absolute Monocytes 0.3 0.0 - 1.3 10e9/L [facility] Absolute Eosinophils 0.0 0.0 - 0.7 10e9/L [facility] Absolute Basophils 0.0 0.0 - 0.2 10e9/L [facility] Absolute Metamyelocytes 0.1 (H) 0 10e9/L [facility] Absolute Myelocytes 0.3 (H) 0 10e9/L [facility] Absolute Promyeloctyes 0.1 (H) 0 10e9/L [facility] Anisocytosis Moderate [facility] Poikilocytosis Marked [facility] RBC Fragments Slight [facility] Teardrop Cells Marked [facility] Ovalocytes Moderate [facility] Microcytes Present [facility] Platelet Estimate Normal [facility] Specimen Anatomical Collection Method Collection Time Receive d Time (Source) Location / / Volume Laterality Blood specimen 08/28/2015 10:33 6 (specimen) AM [facility]NER 10:49 AM CALF SKINNER Michelle Washington MD LAB - BLOOD ORDERABLES Performing Organization Address City/State/ZIP Code Phon e Number M [place] [address] [place] [address] [phone] documented in this encounter Visit Diagnoses Diagnosis Flank pain Abdominal pain, unspecified site Abdominal pain, left lateral Abdominal pain, unspecified site Splenomegaly Anemia, unspecified anemia type White blood cell abnormality Unspecified disease of white blood cells documented in this encounter Administered Medications Inactive Administered Medications - up to 3 most recent administrations Medication Order MAR Action Action Date Dose Rate Site 0.9% sodium chloride BOLUS New Bag 08/28/2015 10:38 AM 1,000 mLs 1000 mL/hr Intravenous, 1,000 mL, [facility]NER ONCE, at 1,000 mL/hr, Administer over 1 Hours, On Fri08/28/15 at 1015, For 1 dose morphine (PF) injection 4 mg Given 08/28/2015 12:29 PM [facility]NER 4 mg 4 mg, Intravenous, EVERY 15 MIN PRN, moderate to severe pain, Starting on Fri08/28/15 at 1014, For 3 doses Given 08/28/2015 11:08 AM [facility]NER 4 mg Given 08/28/2015 10:38 AM [facility]NER 4 mg ondansetron (ZOFRAN) injection 4 mg Given 08/28/2015 10:38 AM [facility]NER 4 mg 4 mg, Intravenous, EVERY 30 MIN PRN, nausea, vomiting, Administer over 2-5 Minutes, Starting on Fri08/28/15 at 1014, For 3 doses, May repeat in 30 minutes as needed, up to 3 doses. documented in this encounter Active and Recently Administered Medications Times are shown in [facility]. Scheduled Medication Order 08/26/2015 08/27/2015 08/28/2015 0.9% sodium chloride BOLUS (COMPLETED) 1038 (New Bag - Provider: Bre Ibrahim)1229 (Stopped - Provider: Bre Ibrahim) Intravenous, 1,000 mL, ONCE, at 1,000 mL /hr, for 1 Hours, 08/28/15 at 1015, For 1 dose PRN Medication Order 08/26/2015 08/27/2015 08/28/2015 morphine (PF) injection 4 mg (COMPLETED) 1038 (Given - Provider: Bre Ibrahim)1108 (Given - Provider: Bre Ibrahim)1229 (Given - Provider: Bre Ibrahim) 4 mg, Intravenous, EVERY 15 MIN PRN, Sta rting 08/28/15 at 1014, For 3 doses, moderate to severe pain ondansetron (ZOFRAN) injection 4 mg (CANCELED) 1038 (Given - Provider: Bre Ibrahim) 4 mg, Intravenous, EVERY 30 MIN PRN, devin sea, vomiting, for 2 Minutes, Starting 08/28/15 at 1014, For 3 doses, May repeat in 30 minutes as needed, up to 3 doses. documented in this encounter Care Teams Gasket Maker Relationship Specialty Start Date End Date No Ref-Primary, Physician PCP - General 08/28/15 09/10/15 documented as of this encounter
--- OUTSIDE RECORDS SUMMARY | 2022-05-02 12:23 | XMS_ITS | Encounter Summary ---
:1970 Author Organization [facility] Address [address] [place] [address] Care Team Providers Name Role Phone Unavailable Primary Care Provider Unavailable Encounter Details Date Type Department Care Team Description 05/18/2001 Office Visit [facility] PRFOSTERTJuan David Parker MD [address] [place], [place] [address] [phone] (Wo rk) Social History Tobacco Use Types Packs/Day Years Used Date Smoking Tobacco: Never Assessed Sex Assigned at Date Recorded Not on file documented as of this encounter Progress Notes 05/18/2001 8:50 AM SOCIAL WORK ASSISTANT SUBJECTIVE: She comes in with a pruritic rash all over her body. She is extremely nervous and her frida yfriend says it is just a neurotic rash. She has been itching it and she is sure that she is being i nfested with bugs that are biting her. It is taking away her eyebrows, her eyelids, her forehead, al l over her body. OBJECTIVE: She has excoriated papules, reddened, inflamed, crusted on all parts o f the body. At onetime I thought it looked like a mite that I could see with magnification. ASSES SMENT: 1) Pruritic excoriated rash. PLAN: This could be scabies. I gave her Kwell lotion and Kwell shampoo to use one time and then a Medrol dosepak. If she does not seem to be clearing with these m easures she will have to be followed up by Dermatology. She does not come to our clinic I don't radha zhang. JUAN DAVID LAZO MD DICTATED: 05/18/2001 TRANSCRIBED: 05/26/2001/nirmal documented in 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
--- OUTSIDE RECORDS SUMMARY | 2022-05-02 12:24 | XMS_ITS | Encounter Summary ---
:1970 Author Organization [facility] Address [address] [place] [address] Care Team Providers Name Role Phone Ab Patterson MD Primary Care Provider Encounter Details Date Type Department Care Team Description 12/13/2015 [facility] to PAWAN Peralta SUMMARY Provider Social History Tobacco Use Types Packs/Day Years Used Date Smoking Tobacco: Never Assessed Sex Assigned at Date Recorded Not on file documented as of 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 Care Teams Head Butler Relationship Specialty Start Date End Date Ab Patterson MD PCP - General Family Practice 11/30/15 [address] [place] [address] documented as of this encounter
--- OUTSIDE RECORDS SUMMARY | 2022-05-02 12:24 | XMS_ITS | Encounter Summary ---
:1970 Author Organization [facility] Address [address] [place] [address] Care Team Providers Name Role Phone Ab Patterson MD Primary Care Provider Encounter Details Date Type Department Care Team Description 12/27/2015 [facility] to Andrew Hannah, Amarilis FATIGUE Social History Tobacco Use Types Packs/Day Years Used Date Smoking Tobacco: Never Assessed Sex Assigned at Date Recorded Not on file documented as of 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 Care Teams Hair Rooting Machine Operator Relationship Specialty Start Date End Date Ab Patterson MD PCP - General Family Practice 11/30/15 [address] [place] [address] documented as of this encounter
--- OUTSIDE RECORDS SUMMARY | 2022-05-02 12:24 | XMS_ITS | Encounter Summary ---
:1970 Author Organization [facility] Address [address] [place] [address] Care Team Providers Name Role Phone Ab Patterson MD Primary Care Provider Encounter Details Date Type Department Care Team Description 12/13/2015 [facility] to [place], ASHLY L OW HEMOGLOBIN Provider CONCERNS Social History Tobacco Use Types Packs/Day Years Used Date Smoking Tobacco: Never Assessed Sex Assigned at Date Recorded Not on file documented as of 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 Care Teams Runner Worker Relationship Specialty Start Date End Date Ab Patterson MD PCP - General Family Practice 11/30/15 [address] [place] [address] documented as of this encounter
--- OUTSIDE RECORDS SUMMARY | 2022-05-02 12:24 | XMS_ITS | Encounter Summary ---
:1970 Author Organization [facility] Address [address] [place] [address] Care Team Providers Name Role Phone Ab Patterson MD Primary Care Provider Reason for Referral Procedure/Equipment (Routine) - Closed Specialty Diagnoses / Procedures Referred By Contact Refer red To Contact Viji Dixon MD [address] [place], [place] [phone] Referral ID Status Reason Start Date Expiration Date Visits Requ ested Visits Authorized [id number] Closed 04/11/2016 07/11/2017 1 1 Scheduling Instructions Your provider has recommended an appoint ment for a screening colonoscopy with [facility] . You may call the [facility] at [phone] to schedule your colonoscopy. Screening colonoscopies are performed at [facility] in [place], as well as at [facility]. We suggest you call your health insurance company a bout your coverage and benefits for this appointment. Reason for Visit Reason Comments ROUTINE HEALTH MAINTENANCE PAP,ROUTINE Hormone questions/concerns LMP 2012 Encounter Details Date Type Department Care Team Description 04/11/2016 Office Visit [place] Viji Dixon Well woman exam with routine gynecological exam (Primary Dx); Obstetrics and A, MD Breast cancer screening; Gynecology Physician s [address] Colon cancer screening; [address] Lipid screening; [place], [place] [address] [place], [place] Screening for diabetes imelda tus; [phone] [id number] Thyroid disorder screen; [phone] Menopausal symp toms; (Work) Pap smear for cervical cancer screening; Essential hypertension; Obesity, morbid , BMI 40.0-49.9 ([facility]) Social History Tobacco Use Types Packs/Day Years Used Date Smoking Tobacco: Never Assessed Sex Assigned at Date Recorded Not on file documented as of this encounter Last Filed Vital Signs Vital Sign Reading Time Taken Comments Blood Pressure 150/102 04/11/2016 1:26 PM CDT Pulse 78 04/11/2016 1:26 PM CDT Temperature - - Respiratory Rate - - Oxygen Saturation - - Inhaled Oxygen Concentration - - Weight 122.5 kg (270 lb) 04/11/2016 1:26 PM CDT Height 169.5 cm (5' 6.75) 04/11/2016 1:26 PM CDT Body Mass Index 42.61 04/11/2016 1:26 PM CDT documented in this encounter Patient Instructions Patient InstructionsViji Dixon MD - 04/11/2016 1:51 PM CDT Schedule lab visit for fasting labs (8 hours fasting). Schedule mammogram and colonoscopy. Go to primary doctor for management of high blood pressure. Hot Flashes During Menopause: Care Instructions Your Care Instructions A hot flash is a sudden feeling of intense body heat. Your head, neck, and chest may get red. Your heartbeat may speed up, and you may feel anxious or irritable. You may find that hot flashes occur more often in warm rooms or during stressful times. Hot flashes and other symptoms are a normal responseto the hormone changes that occur before your menstrual cycle goes away completely (menopause). Hot flashes often get better and go away with time. Making a few changes, such as exercising more, practicing meditation, quitting smoking, and drinking less alcohol, can help. Some women take hormone pills or other medicine to treat bothersome symptoms. Follow-up care is a roa part of your treatment and safety. Be sure to make and go to all appointments, and call your doctor if you are having problems. It???s also a good idea to know your test resultsand keep a list of the medicines you take. How can you care for yourself at home? ?? If you decide to take medicine to treat hot flashes, take it exactly as prescribed. Call your doctor if you think you are having a problem with your medicine. You will get more details on the specific medicine your doctor prescribes. ?? Learn to meditate. Sit quietly and focus on your breathing. Try to practice each day. Books, classes, and tapes can help you start a program. ?? Wear natural fabrics, such as cotton and silk. Dress in layers so you can take off clothes as needed. ?? Keep the room temperature cool, or use a fan. You are more likely to have a hot flash when you are too warm than when you are cool. ?? Use fewer blankets when you sleep at night. ?? Drink cold fluids rather than hot ones. Limit your intake of caffeine and alcohol. ?? Eat smaller meals more often during the day so your body makes less heat than when digesting large amounts of food. Eat low-fat and high-fiber foods. ?? Do not smoke. Smoking can make hot flashes worse. If you need help quitting, talk to your doctor about stop-smoking programs and medicines. These can increase your chances of quitting for good. ?? Get at least 30 minutes of exercise on most days of the week. Walking is a good choice. You also may want to do other activities, such as running, swimming, cycling, or playing tennis or team sports. Where can you learn more? 1. Go to [employer] or [employer]. 2. Enter F700 in the search box. Current as of: September 07, 2015 Content Version: 109 ?? [id number] [employer]. documented in this encounter Progress Notes Viji Dixon MD - 04/11/2016 3:05 PM CDT [facility] CC: Routine health maintenance, annual exam HPI: Jennifer Mendez is a 46 y.o. old here for annual female health maintenance exam. - Patient recently diagnosed with myelofibrosis, treated through [facility] but planning consultation at [facility] in Apr. Has constant pain in RUQ related to splenomegaly, taking narcotics for this. - Menopause for approximately 2 years, initially had hot flashes and then resolved. Hot flashes now recurring for past few months, but reports she is now hot and sweating all the time. Wakes up with night sweats. - Reports low sex drive recently. Doesn't bother me, but bothers my . - BP noted to be elevated today, reports it has been since having pain associated with splenomegaly,follows with primary care in . Present dietary habits: three meals a day and adequate fruit and vegetables Calcium intake: three or more servings daily Present exercise habits: infrequent exercise Intimate partner violence: no Immunizations: up to date Selt belt use: always Mental health: no history of problems MHx: Past Medical History Diagnosis Date ??? Abnormal Pap smear of cervix colp age 23 nl since ??? Myelofibrosis ([facility]C) ??? Spleen enlargement ??? Anemia x 2 yrs ??? Obesity, morbid, BMI 40.0-49.9 (HRC) SHx: Past Surgical History Procedure Laterality Date ??? Tonsil and adenoidectomy ??? Ear tubes [facility] Hx: Last Pap smear: ? unknown History of abnormal Pap smear: yes, age 23?, colposcopy but no treatment required LMP: Patient's last menstrual period was 04/11/2014 (approximate). Contraception: N/A (menopause), also history of unexplained infertility Social: Social History Substance Use Topics ??? Smoking status: None ??? Smokeless tobacco: None ??? Alcohol Use: None Meds: Outpatient Prescriptions Prior to Visit Medication Sig Dispense Refill ??? HYDROcodone-acetaminophen (VICODIN) 5-500 MG tablet Take 1-2 tablets by mouth every 4 hours as needed. LW Addl Instr:Maximum of 8 tablets/24 hours. (Patient not taking: Reported on 04/11/2016) 15 ??? MORPHINE SULFATE OR 15 mg. ??? Multiple Vitamin (MULTIVITAMINS OR) ??? oxyCODONE (AKA ROXICODONE) 5 MG immediate release tablet Take 5 mg by mouth every 4 hours as needed for Pain. ??? sennosides-docusate sodium (SENNA-DOCUSATE) 8.6-50 MG tablet Take 1 Tab by mouth daily. No facility-administered medications prior to visit. FamHx: Family History Problem Relation Age of Onset ??? Cancer, Colon Mother 58 ??? Heart Disease Father ??? Hypertension Father Allergies: Allergies Allergen Reactions ??? Latex PN: Converted from LW Latex Sensitivity Flag Review of Systems: Ten point review of systems negative except as noted in HPI. Physical Examination: BP 150/102 mmHg Pulse 78 Ht 5' 6.75 (1.695 m) Wt 270 lb (122.471 kg) BMI 42.63 kg/m2 LMP 04/11/2014 (Approximate) Estimated body mass index is 42.63 kg/(m^2) as calculated from the following: Height as of this encounter: 5' 6.75 (1.695 m). Weight as of this encounter: 270 lb (122.471 kg). GEN - NAD, comfortable; appears stated age NEURO - grossly non-focal; PERRL, EOMI HEENT - Atraumatic, normocephalic; oral MMM, oropharynx clear NECK - supple, no cervical lymphadenopathy, thyromegaly, or masses LUNG - CTAB, no wheezing/rhonchi/crackles; non-labored breathing CV- RRR, nl S1/S2, no murmurs/clicks/gallops BREASTS - normal without suspicious masses, skin or nipple changes or axillary nodes ABD - Soft, non-tender, non-distended, obese, enlarged spleen palpated EXT - no edema, nontender PELVIC - Normal appearing external genitalia; on speculum exam, normal-appearing cervix and vaginal rodriguez without lesions or masses; no discharge or blood noted; on bimanual exam uterus is small sized,anteverted; no cervical motion tenderness; no adnexal masses or fullness appreciated Assessment/Plan: 46 y.o. here for routine health maintenance. 1. Routine health maintenance counseling completed regarding: Diet, exercise, calcium intake, vaccinations (declines flu vaccine). 2. Routine screening: Pap smear collected, mammogram ordered, colonoscopy ordered (mother w/ cancer age 58), fasting lipid/glucose. 3. Hypertension: Encouraged to follow up with PCP for management. 4. Menopause: Discussed typical symptoms including hot flashes. Will check TSH given initial improvement and now recurrence. Given information of lifestyle modifications for hot flashes. Briefly discussed options for management of symptoms, the most effective of which are hormone replacement therapy. Would want to check with oncologist before starting this if patient desires, she states she will discuss with them. Viji Dixon MD 04/11/20163:07 PM documented in this encounter Plan of Treatment Scheduled Referrals Name Type Priority Associated Diagnoses Order S chedule Colonoscopy-Preventative Referral Routine Ord ered: 04/11/2016 documented as of this encounter Procedures Procedure Name Priority Date/Time Associated Diagnosis Comme nts HPV, HIGH RISK Routine 04/11/2016 2:10 PM Pap smear for Result s for this CDT cervical cancer procedure ar e in screening the results section. PAP TEST, ROUTINE Routine 04/11/2016 2:10 PM Pap smear for Res ults for this CDT cervical cancer procedure ar e in screening the results section. documented in this encounter Results HPV, High Risk (04/11/2016 2:10 PM CDT) Component Value Ref Test Analysis Performed At [facility] gist Range Method Time Signature HPV RESULT Negative NEG [facility] Comments (NOTE) [facility] HPV Test is a qualitative in vitro test for the detection LABORATORIES of Human Papillomavirus in [facility] patient specimens. The t est utilizes amplification of target DNA by Polymerase Chain [place] ction (PCR) and nucleic acid hybridization for the detection of 14 high-risk (HR) HPV types. The assay tests for high risk type s 16, 18, 31, 33, 35, 39, 45, 51, 52, 56, 58, 59, 66 and 68. Testing performed at: This test was developed and its performance characteristics determined by [facility]. ??It has not been cleared or approved by the U.S. Food and Drug Administration. ??The FDA has determined that such clearance or approval is not necessary. ??This test is used for clinical purposes. ??It should not be regar ded as investigational or for research. ??This laboratory is certif ied under the Clinical Laboratory Improvement Amendments of 1988 (CLIA -88) as qualified to perform high complexity testing. Specimen Anatomical Collection Method Collection Time Receive d Time (Source) Location / / Volume Laterality 04/11/2016 2:10 PM 6 2:11 CDT PM CDT Narrative [facility] - 04/17/2016 6:37 AM C DT Performed at [facility] , [address] [place] [id number] Viji Dixon MD LAB_1 Performing Organization Address City/State/ZIP Code Phon e Number [facility] [phone] Pap Test, Routine (04/11/2016 2:10 PM CDT) Component Value Ref Test Analysis Performed At [facility] Range Method Time Signature Cytology, (NOTE) [facility] Pap [facility] Cytology Report [facility]ORATORI ES Patient Name: JENNIFER MENDEZ Taken: 04/11/2016 Received: 04/12/2016 Reported: 04/16/2016 Physician(s): VIJI DIXON ?Source of Specimen Pap Test, Routine Cervical/Endocervical: ?Specimen Adequacy ?Satisfactory for evaluation. ??Endocervical component absent. ? Final Cytologic Interpretation/Result NEGATIVE FOR INTRAEPITHELIAL LESION OR MALIGNANCY (NILM) ?? *Electronically Signed Out By BECKIE Fields (ASCP)* BECKIE Fields (ASCP) ? Pap Smear History Date of Last Menstrual Period: Menopausal ?? Microscopic Description Microscopic examination is performed. [facility] Department of Pathology [address] [place] [address] ??[id number] Specimen Anatomical Collection Method Collection Time Receive d Time (Source) Location / / Volume Laterality 04/11/2016 2:10 PM 6 7:17 CDT AM CDT Viji Dixon MD LAB_1 Performing Organization Address City/State/ZIP Code Phon e Number [facility] [phone] documented in this encounter Visit Diagnoses Diagnosis Well woman exam with routine gynecologic al exam - Primary Routine gynecological examination Colon cancer screening Special screening for malignant neoplasm s, colon Lipid screening Screening for lipoid disorders Screening for diabetes mellitus Thyroid disorder screen Screening for thyroid disorder Menopausal symptoms Symptomatic menopausal or female climact barbie states Pap smear for cervical cancer screening Screening for malignant neoplasm of the cervix Essential hypertension (HRC) Unspecified essential hypertension Obesity, morbid, BMI 40.0-49.9 (HRC) documented in this encounter Care Teams Line Maintenance Technician Relationship Specialty Start Date End Date Ab Patterson MD PCP - General Family Practice 11/30/15 [address] [place] [address] documented as of this encounter
--- OUTSIDE RECORDS SUMMARY | 2022-05-02 12:24 | XMS_ITS | Encounter Summary ---
:1970 Author Organization [facility] Address [address] [place] [address] Care Team Providers Name Role Phone Ab Patterson MD Primary Care Provider Encounter Details Date Type Department Care Team Description 12/13/2015 Outside Hospital External to [facility] Provider Social History Tobacco Use Types Packs/Day Years Used Date Smoking Tobacco: Never Assessed Sex Assigned at Date Recorded Not on file documented as of 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 Care Teams Tobacco Shaker Relationship Specialty Start Date End Date Ab Patterson MD PCP - General Family Practice 11/30/15 [address] [place] [address] documented as of this encounter
--- OUTSIDE RECORDS SUMMARY | 2022-05-02 12:24 | XMS_ITS | Encounter Summary ---
:1970 Author Organization [facility] Address [address] [place] [address] Care Team Providers Name Role Phone Ab Patterson MD Primary Care Provider Reason for Visit Reason Comments External Hospital Follow-up blood transfusion Encounter Details Date Type Department Care Team Description 12/28/2015 Telephone [facility] Ab Patterson [facility] Practice MD Meir Follow-up (blood [id number] [address] [address] [facility] transfusion) [place], [place] [address] [place], [place] [phone] (Wo rk) Social History Tobacco Use Types Packs/Day Years Used Date Smoking Tobacco: Never Assessed Sex Assigned at Date Recorded Not on file documented as of this encounter Nursing Notes Nataly Rosa RN - 12/28/2015 9:40 AM CDT Hospital Discharge: Did not attempt to reach patient. Patient was discharged from a specialty service and has a scheduled f/u appt with their specialist related to the discharge diagnosis documented in 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 Care Teams Public Services Assistant Relationship Specialty Start Date End Date Ab Patterson MD PCP - General Family Practice 11/30/15 [address] [place], [place] [id number] documented as of this encounter
--- OUTSIDE RECORDS SUMMARY | 2022-05-02 12:24 | XMS_ITS | Encounter Summary ---
:1970 Author Organization [facility] Address [address] [place] [address] Care Team Providers Name Role Phone Ab Patterson MD Primary Care Provider Encounter Details Date Type Department Care Team Description 05/10/2016 Scanned History External to Transferred Record, Pro vider [facility] Social History Tobacco Use Types Packs/Day Years Used Date Smoking Tobacco: Never Assessed Sex Assigned at Date Recorded Not on file documented as of 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 Care Teams Biometric Screener Relationship Specialty Start Date End Date Ab Patterson MD PCP - General Family Practice 11/30/15 [address] [place] [address] documented as of this encounter
--- OUTSIDE RECORDS SUMMARY | 2022-05-02 12:25 | XMS_ITS | Encounter Summary ---
:1970 Author Organization [facility] Address [address] [place] [address] Care Team Providers Name Role Phone Unavailable Primary Care Provider Unavailable Encounter Details Date Type Department Care Team Description 01/22/1999 Orders Only Radha Tovar APRN, CNP [facility] [address] [place] [id number] Social History Tobacco Use Types Packs/Day Years Used Date Smoking Tobacco: Never Assessed Sex Assigned at Date Recorded Not on file documented as of this encounter Plan of Treatment Not on filedocumented as of this encounter Procedures Procedure Name Priority Date/Time Associated Diagnosis Comme nts GC (N. Routine 01/22/1999 3:37 PM Results f or this GONORRHOEAE)(14 CDT procedure ar e in YEARS AND OLDER) the results section. CHLAMYDIA (12 YEARS Routine 01/22/1999 3:37 PM Re sults for this AND OLDER) CDT procedure are i n the results section. documented in this encounter Results GC (N. GONORRHOEAE) - 1 SWAB (01/22/1999 3:37 PM CDT) [facility] Method Time Signature GC (N. Negative [facility] gonorrhoeae) Source Cervix [facility] Specimen Anatomical Collection Method Collection Time Receive d Time (Source) Location / / Volume Laterality 01/22/1999 3:37 PM 9 3:38 CDT PM CDT Radha Tovar APRN, CNP LAB_1 Performing Organization Address City/State/ZIP Code Phon e Number [facility] [phone] [place] [id number] [address] CHLAMYDIA - 1 SWAB (01/22/1999 3:37 PM CDT) [employer] Method Time Signature Chlamydia Negative NEG [facility] Test Performed by PCR Assay Source Cervix [facility] Specimen Anatomical Collection Method Collection Time Receive d Time (Source) Location / / Volume Laterality 01/22/1999 3:37 PM 9 3:38 CDT PM CDT Radha Tovar APRN, CNP LAB_1 Performing Organization Address City/State/ZIP Code Phon e Number [facility] [phone] [address] documented in this encounter Visit Diagnoses Not on filedocumented in this encounter
--- OUTSIDE RECORDS SUMMARY | 2022-05-02 12:25 | XMS_ITS | Encounter Summary ---
:1970 Author Organization [facility] Address [address] [place] [address] Care Team Providers Name Role Phone Unavailable Primary Care Provider Unavailable Encounter Details Date Type Department Care Team Description 04/11/1998 Office Visit Floyd Johnston MD Social History Tobacco Use Types Packs/Day Years Used Date Smoking Tobacco: Never Assessed Sex Assigned at Date Recorded Not on file documented as of this encounter Progress Notes Floyd Johnston - 04/11/1998 12:00 AM CDTS: Yzpyul-injy-tpf white female G0000, last menstrual period 03/14/98, control abstinence came in today for colposcopy. Indication being recent AGCUS pap 02/22/98. The patient states she has not had a pap since age 16. She just couldn't afford it and did not have any insurance. She is not on any medications. She has no allergies. No other problems. For details of her routine visit the visit with Radha Tovar 02/22/98 was reviewed. I explained to her in detail what the pathology is on the pap smear and what are the other possible suspicions and what is colposcopy and biopsy. I answered all of her questions and we did the procedure. O: Recent weight on the chart 238 lbs. Colposcopic examination performed in a routine manner 3% acetic acid applied to cervix and upper part of the vagina. A thorough examination was done. The endocervix is protruding out on the ectocervix and the T-zone is out on the ectocervix or out of the external os of the anatomical cervix. The posterior lip of the cervix at the T zone showed marked acetowhite changes with some mosaic changes and punctation. The anterior lip was minimal acetowhite change. No vascular abnormality. The lateral sides of the cervix appeared normal. I did a thorough endocervical curettage following endocervical evaluation with the endocervical speculum. Then I did biopsy of the cervix at 6 o'clock position. Hemostasis with monsel's solution. The patient tolerated the procedure well. A: 1. Recent AGCUS pap. 2. Colposcopy and biopsy. 3. Possible dysplasia of the cervix. P: I have advised her to have pelvic ultrasound done to check the endometrial thickness. Also I suggested that she should have repeat pap and colp every 3-4 months for one year and every six months the following year just to make sure we don't miss out on the significant pathology which might be presented by this AGCUS pap. All of her questions were answered. cc: documented in 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
--- OUTSIDE RECORDS SUMMARY | 2022-05-02 12:25 | XMS_ITS | Encounter Summary ---
:1970 Author Organization [facility] Address [address] [place] [address] Care Team Providers Name Role Phone Unassigned, Provider Primary Care Provider Unavailable Encounter Details Date Type Department Care Team Description 01/15/2007 Office Visit CONV Kurt Schrader DPM 1415 [facility] [address] [place] [address] [place], [place] [phone] (Wo rk) Social History Tobacco Use Types Packs/Day Years Used Date Smoking Tobacco: Never Assessed Sex Assigned at Date Recorded Not on file documented as of this encounter Progress Notes Kurt Day DPM - 01/15/2007 12:01 AM CDT Progress Notes signed by Kurt Day DPM at 01/22/07 0730 Author: Kurt Day DPM Service: (none) Author Type: Physician Filed: 11/02/102021 Note Time: 01/15/072021 Status: Signed Development Editor: Kurt Day DPM (Physician) SUBJECTIVE: Patient returns to clinic for followup of Low-dye strapping. Patient indicates that while the taping was on greater than 50 % of heel pain was resolved. Patient wishes to procede ahead with fabrication of orthotics. She'll said his she missed two days of work and needs a work slip secondary to the pain that she was having up to take him off. ALLERGIES: No known drug allergies Medications: Reviewed. See Medication List in LastWord. OBJECTIVE: No erythema, open wounds or ulcerations are present on bilateral feet. Continues to have pain with deep palpation of the plantar medial calcaneal tubercle on the left. No pain with medial to lateral compression of the heel. ASSESSMENT: Plantar fasciitis left PLAN: Work absence slip was given to the patient for those two days. Discussed treatment options and alternatives with patient, as well as pros, cons, risks and benefits of orthotics. Patient has agreed to undergo casting for the orthotic. A GA waiver was signed and the casting was performed. She also requested undergoing another low dye strapping which was applied today. Her orthotics will have a ann placed on them but she still wanted to come in next week to have her foot retained this was scheduled for her. She is to follow up with me in 3 to 4 weeks after use the orthotics if any problems are still persisting. The patient will be contacted when the orthotics are ready to be dispensed and will return for followup in 3-6 weeks after the orthotic use if any problems persist. The patient was discharged ambulatory and in stable condition. *SH~DNS~Custom1 documented in 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 Care Teams Gravure Press Set Up Operator Relationship Specialty Start Date End Date Unassigned, Provider PCP - General 09/20/00 11/29/[address] [place] [id number] documented as of this encounter
--- OUTSIDE RECORDS SUMMARY | 2022-05-02 12:25 | XMS_ITS | Encounter Summary ---
:1970 Author Organization [facility] Address [address] [place] [address] Care Team Providers Name Role Phone Unassigned, Provider Primary Care Provider Unavailable Encounter Details Date Type Department Care Team Description 01/01/2007 Office Visit CONV Kurt Schrader DPM [address] [address] [place], [place] [phone] (Wo rk) Social History Tobacco Use Types Packs/Day Years Used Date Smoking Tobacco: Never Assessed Sex Assigned at Date Recorded Not on file documented as of this encounter Last Filed Vital Signs Vital Sign Reading Time Taken Comments Blood Pressure 126/74 01/01/2007 1:05 PM CDT Pulse 80 01/01/2007 1:05 PM CDT Temperature - - Respiratory Rate - - Oxygen Saturation - - Inhaled Oxygen Concentration - - Weight 127.4 kg (280 lb 15.6 01/01/2007 1:05 PM C: 127. 5kg oz) CDT Height - - Body Mass Index - - documented in this encounter Progress Notes Kurt Day DPM - 01/01/2007 12:01 AM CDT Progress Notes signed by Kurt Day DPM at 01/19/07 1018 Author: Kurt Day DPM Service: (none) Author Type: Physician Filed: 11/02/102006 Note Time: 01/01/07 0001 Status: Signed Furnace Installer: Kurt Dya DPM (Physician) NAME: JENNIFER MENDEZ MR#: [id number] ACCT: [id number] VISIT: [id number] DICTATING CLINICIAN: Kurt Day DPM JOB: [id number] LOC: 1239 CLINIC PROGRESS NOTE DATE OF VISIT: 01/01/2007 SUBJECTIVE: Patient is presenting to the clinic with complaint of a left foot which has shooting pains to the heel and arch ongoing for the last 2-3 months. Indicates she started a new job with new activities that requires a lot more time on her feet. Since then she has noted increased pain to the area. She denies any swelling or redness. Denies any other current complaints. REVIEW OF SYSTEMS: Denies any redness, swelling, discoloration, numbness, muscle weakness, or loss of function. MEDICATIONS: Reviewed in [facility] health profile. ADR/ALLERGIES: REVIEWED IN [facility] HE[facility] PROFILE. PAST MEDICAL HISTORY: Reviewed in [facility] health profile. SOCIAL HISTORY: Non-smoker. OBJECTIVE: A 36-year-old female, obese, in no acute distress. Alert and oriented x3. Pedal pulses are palpable bilaterally. Distal neurologic sensation appears grossly intact bilaterally. Range of motion of the ankle, rearfoot, midfoot, and forefoot are within normal limits without pain or crepitation. There is no pain with medial to lateral compression of the calcaneus or deep palpation, percussion of the TP nerve bilaterally. There is, however, exquisite tenderness to deep palpation of plantar calcaneal tubercle along the medial bend with plantar fascia on the left foot. There are no palpable enlargements or deficits identified today. Skin is warm to touch. Normal texture, turgor, and distribution of pedal hair growth. There is no erythema, edema, ulceration, open wounds present. She has a normal angle and base of gait with decreased medial arch upon weightbearing. ASSESSMENT: Plantar fasciitis, left. PLAN: Discussed treatment options alternatives with patient. She was agreeable to undergo a LowDye strapping which was applied today. Keep this clean, dry, intact, and follow up with me in 1 to 2 weeks for further evaluation, sooner if any problems or concerns should arise. [facility]:[id number] C: 01/07/07 12:49 DOCUMENT: [id number] documented in 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 Care Teams Senior Web Applications Developer Relationship Specialty Start Date End Date Unassigned, Provider PCP - General 09/20/00 11/29/[address] [place] [id number] documented as of this encounter
--- OUTSIDE RECORDS SUMMARY | 2022-05-02 12:25 | XMS_ITS | Encounter Summary ---
:1970 Author Organization [facility] Address [address] [place] [address] Care Team Providers Name Role Phone Unavailable Primary Care Provider Unavailable Encounter Details Date Type Department Care Team Description 02/22/1998 Orders Only Radha Tovar APRN, CNP [facility] [address] [place] [address] [phone] Social History Tobacco Use Types Packs/Day Years Used Date Smoking Tobacco: Never Assessed Sex Assigned at Date Recorded Not on file documented as of this encounter Plan of Treatment Not on filedocumented as of this encounter Procedures Procedure Name Priority Date/Time Associated Diagnosis Comme nts GC (N. Routine 02/22/1998 11:51 AM Results for this GONORRHOEAE)(14 CDT procedure ar e in YEARS AND OLDER) the results section. CHLAMYDIA (14 YEARS Routine 02/22/1998 11:51 AM R esults for this AND OLDER) CDT procedure are i n the results section. documented in this encounter Results GC (N. GONORRHOEAE) - 1 SWAB (02/22/1998 11:51 AM CDT) [facility] gist Method Time Signature GC (N. Negative [facility] gonorrhoeae) Source Cervix [facility] Specimen Anatomical Collection Method Collection Time Receive d Time (Source) Location / / Volume Laterality 02/22/1998 11:51 02/22/1998 AM CDT 11:52 AM CDT Radha Tovar APRN, CNP LAB_1 Performing Organization Address City/State/ZIP Code Phon e Number [facility] [phone] [facility] [address] [phone] CHLAMYDIA - 1 SWAB (02/22/1998 11:51 AM CDT) athologist Signature Chlamydia Negative [facility] Source Cervix [facility] Specimen Anatomical Collection Method Collection Time Receive d Time (Source) Location / / Volume Laterality 02/22/1998 11:51 02/22/1998 AM CDT 11:52 AM CDT Radha Tovar APRN, CNP LAB_1 Performing Organization Address City/State/ZIP Code Phon e Number [facility] [phone] [facility] [address] [place] [phone] documented in this encounter Visit Diagnoses Not on filedocumented in this encounter
--- OUTSIDE RECORDS SUMMARY | 2022-05-02 12:25 | XMS_ITS | Encounter Summary ---
:1970 Author Organization [facility] Address [address] [place] [address] Care Team Providers Name Role Phone Unassigned, Provider Primary Care Provider Unavailable Reason for Visit Reason Comments Other Encounter Details Date Type Department Care Team Description 01/20/2007 Telephone [facility] 3900 Kurt Day DPM Other [facility] [address] [place] [address] [place], [place] [address] [phone] Social History Tobacco Use Types Packs/Day Years Used Date Smoking Tobacco: Never Assessed Sex Assigned at Date Recorded Not on file documented as of this encounter [facility] Notes Center, Message - 01/20/2007 9:16 AM CDT Phone Note filed by [employer] at 10/31/102015 Author: [employer] Service: (none) Author Type: (none) Filed: 10/31/102015 Note Time: 01/20/07915 Status: Signed Care Director Rn: [employer] [facility] Non -Symptom Message from Front Line Caller Name/Relationship:Jennifer Primary Senior Agricultural Assistant:Shay Message:pt missed work on Friday01/18/07 due to problems with feet, pt is calling for a note for this. Please call pt will pick up driver note when ready. Websphere Portal Architect:Jennifer Best call back number:[phone] Best time to call back:anytime Is it OK to leave a confidential message on this voicemail? yes *ECODE~PNMSG2 Created on 20Jan2007 9:16am by SHARON GRAY Acknowledged by KURT DAY on 4:40pm SPORTATION SUPERINTENDENT documented in 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 Care Teams Grain Operations Manager Relationship Specialty Start Date End Date Unassigned, Provider PCP - General 09/20/00 11/29/[address] [place] [phone] documented as of this encounter
--- OUTSIDE RECORDS SUMMARY | 2022-05-02 12:25 | XMS_ITS | Encounter Summary ---
:1970 Author Organization [facility] Address [address] [place] [address] Care Team Providers Name Role Phone Unavailable Primary Care Provider Unavailable Encounter Details Date Type Department Care Team Description 02/22/1998 Orders Only Radha Tovar APRN, CNP [facility] [address] [place] [address] [id number] Social History Tobacco Use Types Packs/Day Years Used Date Smoking Tobacco: Never Assessed Sex Assigned at Date Recorded Not on file documented as of this encounter Plan of Treatment Not on filedocumented as of this encounter Procedures Procedure Name Priority Date/Time Associated Diagnosis Comme nts CHOLESTEROL, TOTAL Routine 02/22/1998 11:50 AM Re sults for this AND HDL CDT procedure are i n the results section. HIV ANTIBODY Routine 02/22/1998 11:50 AM Results for this CDT procedure are i n the results section. CBC HEME PANEL Routine 02/22/1998 11:50 AM Result s for this CDT procedure are i n the results section. documented in this encounter Results HIV 1/2 ANTIBODY (02/22/1998 11:50 AM CDT) [facility] gist Method Time Signature HIV 1/2 Non-Reacti [facility] Antibody ve Specimen Anatomical Collection Method Collection Time Receive d Time (Source) Location / / Volume Laterality 02/22/1998 11:50 02/22/1998 AM CDT 11:51 AM CDT Radha Tovar APRN, CNP LAB_1 Performing Organization Address City/State/ZIP Code Phon e Number [facility] [phone] [facility] [address] [address] CHOLESTEROL, TOTAL AND HDL (02/22/1998 11:50 AM CDT) P athologist Signature Cholesterol 160 <200 mg/dl [facility] HDL 43 >35 mg/dl [facility] Specimen Anatomical Collection Method Collection Time Receive d Time (Source) Location / / Volume Laterality 02/22/1998 11:50 02/22/1998 AM CDT 11:51 AM CDT Radha Tovar VALDEMAR DELGADO LAB_1 Performing Organization Address [facility] Phon e Number [facility] [phone] [facility] [address] [address] (ABNORMAL) CBC HEME PANEL (02/22/1998 11:50 AM CDT) Patholo gist Method Time Signature WBC 8.1 4.2 - [facility] 10.0 k/ul WBC All Parameters [facility] Rechecked RBC 4.59 3.8 - 5.4 [facility] M/ul Hemoglobin 13.1 12 - 16 [facility] g/dl HCT 39.7 35 - 46 % [facility] MCV 86 80 - 98 [facility] fl MCH 28.5 27 - 34 [facility] pg MCHC 33.0 32 - 36 % [facility] Platelets 761 (H) 150 - 450 [facility] k/ul Platelets Slide Checked [facility] Specimen Anatomical Collection Method Collection Time Receive d Time (Source) Location / / Volume Laterality 02/22/1998 11:50 02/22/1998 AM CDT 11:51 AM CDT Radha Tovar APRN, CNP LAB_1 Performing Organization Address [facility] Phon e Number [facility] [phone] [facility] [address] [place] [phone] documented in this encounter Visit Diagnoses Not on filedocumented in this encounter
--- OUTSIDE RECORDS SUMMARY | 2022-05-02 12:25 | XMS_ITS | Encounter Summary ---
:1970 Author Organization [facility] Address [address] [place] [address] Care Team Providers Name Role Phone Unassigned, Provider Primary Care Provider Unavailable Reason for Visit Reason Comments Other Encounter Details Date Type Department Care Team Description 01/31/2006 Telephone [facility] 1515 Obstet rics[facility]Gynecology Center, Message Other [address] [facility] [place] [address] Social History Tobacco Use Types Packs/Day Years Used Date Smoking Tobacco: Never Assessed Sex Assigned at Date Recorded Not on file documented as of this encounter Progress Notes Center, Message - 01/31/2006 9:19 AM CDT Phone Note filed by [employer] at 10/30/10637 Author: [employer] Service: (none) Author Type: (none) Filed: 10/30/10637 Note Time: 01/31/06918 Status: Signed Crossing Supervisor: Sec[employer]ant MESSAGE TO CARE TEAM NAME OF CALLER:reynaldo NAME OF CLINICIAN:lata MESSAGE:Pt calling back returning nurse call regarding US results. Please call pt back to discuss. PHARMACY NAME: PHARMACY PHONE #: CALL BACK PHONE #:[phone] BEST TIME TO CALL BACK:after 230pm Is it OK to leave detailed message on voicemail?yes Created on 31Jan2006 9:19am by DENISE WEISS On 03Feb2006 11:23am BRANDON HOLLEY wrote: lm at contact number above with results, U/S normal per Dr. Sahrp, simple cyst right ovary. LE PERSON documented in 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 Care Teams Biofuels Operations Manager Relationship Specialty Start Date End Date Unassigned, Provider PCP - General 09/20/00 11/29/[address] [place] [address] documented as of this encounter
--- OUTSIDE RECORDS SUMMARY | 2022-05-02 12:25 | XMS_ITS | Encounter Summary ---
:1970 Author Organization [facility] Address [address] [place] [address] Care Team Providers Name Role Phone Unavailable Primary Care Provider Unavailable Encounter Details Date Type Department Care Team Description 03/08/1998 Office Visit Radha Tovar APRN, PACKING HOUSE LABORER [facility] [address] [place] [address]652 Social History Tobacco Use Types Packs/Day Years Used Date Smoking Tobacco: Never Assessed Sex Assigned at Date Recorded Not on file documented as of this encounter Progress Notes Radha Tovar - 03/08/1998 12:00 AM CDTS: The patient presents today for test results. Age 27. Para 0-0-0-0. Allergies: None. Medications: None. The patient was seen on 02/22/98 for her PROJECT CONTROL MANAGER exam and Pap smear and at that time an STD check was done. She is here today for her HIV results. No problems when asked. O: BP 122/66. 02/22/98 HIV non reactive, GC negative, Chlamydia negative. Vaginal culture many vaginal florae. A: Test results. P: 1. HIV reviewed with the patient. No questions for me today when asked. Condom use to help decrease STD risk advised. 2. Return to clinic p.r.n. cc: documented in 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
--- OUTSIDE RECORDS SUMMARY | 2022-05-02 12:25 | XMS_ITS | Encounter Summary ---
:1970 Author Organization [facility] Address [address] [place] [address] Care Team Providers Name Role Phone Unassigned, Provider Primary Care Provider Unavailable Encounter Details Date Type Department Care Team Description 01/22/2006 PN Conversion Only [facility] [address] [place] [address] Social History Tobacco Use Types Packs/Day Years Used Date Smoking Tobacco: Never Assessed Sex Assigned at Date Recorded Not on file documented as of 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 Care Teams Pupil Personnel Worker Relationship Specialty Start Date End Date Unassigned, Provider PCP - General 09/20/00 11/29/15 [address] [place] [address] documented as of this encounter
--- OUTSIDE RECORDS SUMMARY | 2022-05-02 12:25 | XMS_ITS | Encounter Summary ---
:1970 Author Organization [facility] Address [address] [place] [address] Care Team Providers Name Role Phone Unassigned, Provider Primary Care Provider Unavailable Encounter Details Date Type Department Care Team Description 07/14/1989 PN Conversion Only ASSISTANT PROFESSOR OF LIFE SCIENCES [address] [place] [address] Social History Tobacco Use Types Packs/Day Years Used Date Smoking Tobacco: Never Assessed Sex Assigned at Date Recorded Not on file documented as of 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 Care Teams Hourly Shift Manager Relationship Specialty Start Date End Date Unassigned, Provider PCP - General 09/20/00 11/29/15 [address] [place] [address] documented as of this encounter
--- OUTSIDE RECORDS SUMMARY | 2022-05-02 12:25 | XMS_ITS | Encounter Summary ---
:1970 Author Organization [facility] Address [address] [place] [address] Care Team Providers Name Role Phone Unavailable Primary Care Provider Unavailable Encounter Details Date Type Department Care Team Description 02/22/1998 Orders Only Radha Tovar APRN, CNP [facility] [address] [place] [address] Social History Tobacco Use Types Packs/Day Years Used Date Smoking Tobacco: Never Assessed Sex Assigned at Date Recorded Not on file documented as of this encounter Plan of Treatment Not on filedocumented as of this encounter Procedures Procedure Name Priority Date/Time Associated Diagnosis Comme nts GENITAL / CULTURE Routine 02/22/1998 11:51 AM Res ults for this ONLY CDT procedure are i n the results section. documented in this encounter Results GENITAL / CULTURE ONLY (02/22/1998 11:51 AM CDT) [facility] Method Time Signature Specimen Vagina [facility] Description Special None [facility] Requests Culture Many [facility] Vaginal Marissa Report Status Final [facility] Report Status [id number] [facility] Specimen Anatomical Collection Method Collection Time Receive d Time (Source) Location / / Volume Laterality 02/22/1998 11:51 02/22/1998 AM CDT 11:52 AM CDT Radha Tovar APRN, CNP LAB_2 Performing Organization Address City/State/ZIP Code Phon e Number [facility] [phone] [facility] [address] [phone] documented in this encounter Visit Diagnoses Not on filedocumented in this encounter
--- OUTSIDE RECORDS SUMMARY | 2022-05-02 12:25 | XMS_ITS | Encounter Summary ---
:1970 Author Organization [facility] Address [address] [place] [address] Care Team Providers Name Role Phone Unassigned, Provider Primary Care Provider Unavailable Encounter Details Date Type Department Care Team Description 01/01/2007 Office Visit [facility] Kathy Christensen I, MANUFACTURING PROJECT ENGINEER, [address] [place] [address] [place], [place] [address] (Wo rk) Social History Tobacco Use Types Packs/Day Years Used Date Smoking Tobacco: Never Assessed Sex Assigned at Date Recorded Not on file documented as of this encounter Progress Notes Kathy Christensen I - 01/01/2007 12:01 AM CDT Progress Notes signed by at 01/01/07 9299 Author: DOMINIK Casas Service: (none) Author Type: (none) Filed: 11/02/102005 Note Time: 01/01/07 0001 Status: Signed Registered Land Surveyor: Aurelia Conde Acute Clinic Visit IMPRESSION: Foot pain SUBJECTIVE: History of Present Illness: Foot pain for 2 months Ms Dobbs is a 36 year old female, at the clinic with c/o left foot pain for 2 months, but seems to be getting worse in the last 3 days with new position at work that requires standing 90% of the time. She said that when this started 2 months ago, she had a different job, and was able to stay off foot for about 7 days with relief. She tried Advil with no relief , and said her left knee is now hurting due to shifting her weight from left foot to right. Right knee Pain: Duration: 3 days. Severity: Mild. Symptom Trend: Stable. Pain Scale: 2/10. Musculoskeletal Past Hx Only occasional episodes of low back pain Past History: Adverse Drug Reactions: None. Chronic Medications: None. Pt. performs back care exercises irregularly. Tobacco: 1/2 pack per day. OBJECTIVE: Vital Signs: Vital Signs taken today were reviewed on the flowsheet in LastWord. Gen: Appears mildly uncomfortable Body habitus: Obese Neurological: Heel and toe walking were normal on right tenderness on left Deep tendon reflexes normal & symmetric bilaterally Normal sensation bilateral foot, heel, langley, and thigh Laboratory and X-ray: None ASSESSMENT: Planter fasciitis, left PLAN: Vicodin 5/500: 1-2 tabs q6 hrs. PRN severe pain at home. Prescribed: #15 tablets. Pt. was cautioned in regards to narcotic use: No working, no driving, no operation of machinery or other potentially dangerous activities, no alcohol consumption. Use with caution in combination with other medications which may cause drowsiness. Excuse from work/school: Note given to excuse for today''s visit, 01/01/07 Patient given discharge instructions and was discharged in stable condition. Follow up with Mainframe Programmer Analyst. RTC as needed, worsening pain, progressive weakness, or other neurological deficits. TT: [address]: 15 mins *SH~PC~LBP ~Shorthand Note completed on: 01/01/2007 4:28 PM PATIAL SYSTEMS INTEGRATOR documented in 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 Care Teams Registrar College Or University Relationship Specialty Start Date End Date Unassigned, Provider PCP - General 09/20/00 11/29/[address] [place] [address] documented as of this encounter
--- OUTSIDE RECORDS SUMMARY | 2022-05-02 12:25 | XMS_ITS | Encounter Summary ---
:1970 Author Organization [facility] Address [address] [place] [address] Care Team Providers Name Role Phone Unavailable Primary Care Provider Unavailable Encounter Details Date Type Department Care Team Description 04/18/1998 Office Visit Subha Paige MD [address] [place], [place] [address] (Wo rk) Social History Tobacco Use Types Packs/Day Years Used Date Smoking Tobacco: Never Assessed Sex Assigned at Date Recorded Not on file documented as of this encounter Progress Notes Subha Paige - 04/18/1998 12:00 AM CDTS: Jennifer is a 28-year-old G0 who comes in today because of some cramping following colposcopy and cervical biopsy on 04/11, one week ago. She says the cramping subsided after a couple of day but then she felt it again a little bit today. She also has a warm feeling when she urinates and a strong smelling discharge. O: On Friday, 04/18, Jennifer weighed 245 pounds and her blood pressure was 118/62. On speculum exam the cervix appears normal and the biopsy site is healing well. Wet prep was negative. A: Normal speculum exam. P: Jennifer didn't think she could go to the bathroom right now so I left a waiting lab slip for her to have a urinalysis and she has an ultrasound scheduled for this afternoon at 4:15. 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 I told her it would be best to discuss how to manage this with Dr. Johnston. cc: documented in 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
--- OUTSIDE RECORDS SUMMARY | 2022-05-02 12:25 | XMS_ITS | Encounter Summary ---
:1970 Author Organization [facility] Address [address] [place] [address] Care Team Providers Name Role Phone Unavailable Primary Care Provider Unavailable Encounter Details Date Type Department Care Team Description 04/24/1998 Office Visit Floyd Johnston MD Social History Tobacco Use Types Packs/Day Years Used Date Smoking Tobacco: Never Assessed Sex Assigned at Date Recorded Not on file documented as of this encounter Progress Notes Floyd Johnston - 04/24/1998 12:00 AM CDTTAPE NO. [id number] REFERRING PROVIDER: Floyd Johnston M.D. - [facility] INDICATION FOR PELVIC ULTRASOUND: 1. Patient has KAITLIN PAP smear. 2. Check endometrial lining. LMP - the patient has had irregular bleeding since the beginning of March 1998. Transvaginal ultrasound examinations were performed. The uterus was in midline anteverted position, normal dimensions, normal outline and texture. Cavity empty. The endometrium is 10 mm between myometrium to myometrium on the sagittal section. No free fluid was noted in the pelvic cavity. Both ovaries are well visualized. Both look normal. The right ovary measures 3.1 x 1.6 cm longitudinal section and 3.0 x 1.7 cm transverse section. The left ovary measures 3.0 x 2.2 cm longitudinal section and 3.5 x 2.2 cm in transverse section. No pelvic masses noted. ULTRASOUND ASSESSMENT: Normal looking uterus and ovaries on this ultrasound study. PLAN: The patient is being referred back to my care, Dr. Johnston, at [facility] for further management. cc: Floyd Johnston MD documented in 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
--- OUTSIDE RECORDS SUMMARY | 2022-05-02 12:25 | XMS_ITS | Encounter Summary ---
:1970 Author Organization [facility] Address [address] [place] [address] Care Team Providers Name Role Phone Unassigned, Provider Primary Care Provider Unavailable Encounter Details Date Type Department Care Team Description 11/13/2010 PN Conversion Only CONVERSION CONVERSION Pnc, , [place] [address] Social History Tobacco Use Types Packs/Day Years Used Date Smoking Tobacco: Never Assessed Sex Assigned at Date Recorded Not on file documented as of 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 Care Teams Inclusion Paraeducator Relationship Specialty Start Date End Date Unassigned, Provider PCP - General 09/20/00 11/29/15 [address] [place] [address] documented as of this encounter
--- OUTSIDE RECORDS SUMMARY | 2022-05-02 12:25 | XMS_ITS | Encounter Summary ---
:1970 Author Organization [facility] Address [address] [place] [address] Care Team Providers Name Role Phone Unavailable Primary Care Provider Unavailable Encounter Details Date Type Department Care Team Description 05/24/1998 Office Visit Floyd Johnston MD Social History Tobacco Use Types Packs/Day Years Used Date Smoking Tobacco: Never Assessed Sex Assigned at Date Recorded Not on file documented as of this encounter Progress Notes Floyd Johnston - 05/24/1998 12:00 AM CSTS: This 28-year-old white female 000; control abstinence, last menstrual period, 05/17/98 came in today for LEEP procedure. She had an atypical glandular cells of undetermined significance noted on a pap smear in February of this year and then she came in and I did a colposcopy and the biopsy suggested mild dysplasia of the cervix and I gave her the option of having a colposcopy every four months or having a LEEP and she decided to go ahead and have the LEEP procedure. This message was through the nurse and when she came in today we did further discussing. O: Weight is 241 lb., blood pressure, 116/82. The patient was not examined. A: Mild dysplasia of the cervix. P: I had a lengthy discussion with Jennifer and I explained to her the procedure, and explained the risks of 1% stenosis of the cervix and 1% of incompetence of the cervix following the LEEP procedure and answered all her questions. I explained that there are some cases when mild dysplasia may revert to normal and as long as she does her routine, regular pap smears, we can keep a watch and if this dysplasia turns to moderate or otherwise we can do the LEEP. I believe she understood all this and all her questions have been answered and she has decided not to have the LEEP done today. 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
--- OUTSIDE RECORDS SUMMARY | 2022-05-02 12:25 | XMS_ITS | Encounter Summary ---
:1970 Author Organization [facility] Address [address] [place] [address] Care Team Providers Name Role Phone Unavailable Primary Care Provider Unavailable Reason for Visit Reason Comments PAP,ABNORMAL VIA INTERFACE Encounter Details Date Type Department Care Team Description 01/22/1999 Office Visit Allison Radha Tovar, GYNECOL OGIC EXAMINATION; Obstetrics and PIECE WORK CHECKER, SUPERVISOR REFRACTORY PRODUCTS SCREENING FOR INFEC DIS NOS; Gynecology [facility] ABNORMAL PAP SMEAR-CERVIX; [facility] TOBACCO USE DISORDER; [address] [place] [address] PRESCRIP-OR AL CONTRACEPT; NE COUNSELING, HEALTH; [facility], [place] [address] Social History Tobacco Use Types Packs/Day Years Used Date Smoking Tobacco: Never Assessed Sex Assigned at Date Recorded Not on file documented as of this encounter Progress Notes Radha Tovar - 01/22/1999 12:00 AM CDTS: 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 Age 28, para 0, 0, 0, 0. Contraception: None. LMP: 01/15/99.ALLERGIES: CODEINE. Medications: Metabolife. Jennifer shares with me that she never did start on the control pills that were prescribed to her by me back in February of 1998, and also that Dr. Johnston had written her a prescription in the fall of the year, but she did not start these. She states that her menses have been coming more regular monthly, with five days flow, but now feels like she would like to begin control pills for the control, and also to help regulate her periods. She denies control pill contraindications when asked. She does smoke one pack per day, and health risks regarding smoking discussed with her, and I did encourage her to cut down to quitting, and what is available through [employer]. Jennifer had her first Pap smear at age 16; she states that was normal. She had her second Pap smear with me in February of 1998. It was a KAITLIN. She did have a colposcopy. Biopsy did reveal a mild pre-cancer, and she did see Dr. Johnston for follow-up. He did discuss this with her, and she was offered to return to clinic for a repeat Pap smear and colposcopy in four months' time, or LEEP procedure, and she chose to return for the repeat Pap smear. She chose to return now for her Pap smear and colposcopy. I did discuss with her that I do not do colposcopies, but will have her follow up with Dr. Johnston for this. I will certainly go ahead and get her Pap smear for her today. She also states that she has been noticing some post-coital bleeding. She has had a new sexual partner over the past one and a half months, and does agree to an STD check when offered, for this. Also did discuss that should this bleeding seem to persist, that she would need to see Dr. Johnston on this. She declines HIV testing when offered. She denies history of blood transfusions or IV drug use herself. She drinks skim milk, at least one glass per day, and some dairy products for calcium intake. She has not been exercising, and he did encourage walking for her. In 1997, cholesterol was 160, HDL 43. Family history: Breast cancer negative. Cancer of the uterus, cervix, ovaries negative. Colon cancer: Mother, at age 58. Diabetes for mother and maternal grandparents. Heart disease father, hypertension, and had a pacemaker. He is now . Maternal grandmother fatal AL. O: Height 5 feet 6-1/2. Weight 214-1/2. BP 120/76. Mental status: She is alert and responds appropriately. Skin is warm and dry. Breasts are smooth, soft, without prominent masses noted. Supraclavicular and axillary areas are clear. External genitalia without lesions. BSU clear. Normal appearing vaginal wall rugae with clear discharge noted in vaginal vault. Cervix is smooth. Pap smear obtained using wooden spatula and cytobrush, with ease. GC and Chlamydia cultures obtained. The uterus is small, firm, mobile, and nontender. Adnexae are without masses or tenderness. 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 Past abnormal Pap smear. P: 1. Pap smear. GC and Chlamydia cultures. Will notify of positive results and follow-up care. 2. Monthly self-breast exam reviewed and encouraged to do. 3. Demulen , 28 days X 3 cycles. Health benefit instructions, risk factors, and danger signals all again reviewed with her. Questions answered, and control pill pamphlet given. Also, the orange folder on smoking cessation given to her, and did encourage her to cut down to quitting. 4. She is to schedule a follow-up colposcopy appointment with Dr. Johnston within the next three to four weeks after Pap smear results are back, and also she states she would like to talk to him about why she is not getting , and also about her post-coital bleeding. 5. I did review with her the risk factors regarding being on Metabolife, from the handout received from Pharmacy, 11/01/98, and did caution her about using this, and to follow up with pharmacist regarding her use of this, and literature on the risk factors. cc: documented in this encounter Plan of Treatment Not on filedocumented as of this encounter Visit Diagnoses Diagnosis Gynecological examination Screening examination for unspecified in fectious disease Abnormal Papanicolaou smear of cervix an d cervical HPV Tobacco use disorder (HRC) Tobacco use disorder General counseling for prescription of o ral contraceptives Counseling NOS(V65.40) Counseling NOS Laboratory examination documented in this encounter
--- OUTSIDE RECORDS SUMMARY | 2022-05-02 12:25 | XMS_ITS | Encounter Summary ---
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 Age 27. Para 0-0-0-0. Contraception abstinence. LMP 01/30/98. Allergies: None. Medications: None. The patient shares with me that she has not seen a doctor in many years. She's had only one previous Pap smear. She felt it was normal. This was done when she was 16 years of age in a clinic in [place]. Since that time, she has not been back. She shares with me that she's had a history of irregular menses. They can occur anywhere from every three weeks to every three months lasting three to seven days, typically five days flow and has cramping some months. Other months she does not and she does not treat this. She also does exhibit PMS type symptoms, especially mood changes, and we did spend some time talking about this and what is available through [employer]. She did quit smoking several weeks ago and feels very happy about this and plans to stay away from it. She is not sexually active at this time. 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 That relationship, she felt, ended on poor terms but does not feel he had outside contacts but did agree to an STD check and HIV testing when offered. She does not plan a future relationship at this time. When asked, claims neither she nor he used control and she did not become . I did talk to her about control pills to help regulate her menses and she felt that this is something she would like to do and she denies control pill contraindications when asked. Family history: She shares with me that she does not have contact with her mother. She does have 10 siblings ahead of her. Family history breast cancer negative. Cancer of the uterus, cervix, ovaries she's not sure. Shares with me that she was the 11th and last child that her mother had a hysterectomy after she was born by , and she feels that her mother may have had uterine myomas but again she is not sure. She will try and check with older siblings. Diabetes--mother and maternal grandparents. Heart disease--father had hypertension and pacemaker, is now . She drinks skim milk, at least a half gallon per day and eats daily products for calcium intake. For exercise, she has been trying to do some walking for herself. 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 O: Height 5 feet, 7 inches. Weight 238. BP 122/80. Mental status--she is tearful during the health history. She is alert, however, and does respond appropriately. Coming to the doctor is difficult for her and apparently she has limited contact with her mother and apparently there seems to be issues in her family of origin that are painful for her. I did discuss with her what is available through [facility] and for her to get in contact with a therapist for further evaluation of this since it is very difficult and painful for her to talk about it and very tearful for her in being here today. I did give her much reassurance and did tell her how happy I was for her to make that decision to come in and have her health checked, and she does feel good about being her also. Her skin is warm and dry. Breasts are smooth, soft, without prominent masses noted. Supraclavicular and axillary areas are clear. External genitalia without lesions. BSU clear. Normal appearing vaginal wall rugae with mucous discharge noted in vaginal vault. No discharge or odor noted. Claims she's noticed odor and occasional discharge for some time but was vague on the length of time. GC, Chlamydia and vaginal cultures were obtained. Cervix nulliparous. Pap smear obtained using wooden spatula and Cytobrush with ease. Uterus is small, firm, mobile, non tender in mid position. Adnexa without masses or tenderness. Rectovaginal exam confirms. A: 1. Normal SOLAR PV INSTALLER exam--second Pap smear. 2. Begin control pills. P: 1. Pap smear. CBC, cholesterol with HDL. GC Chlamydia vaginal cultures. We'll notify if positive results and follow up care. HIV--understands the need to return to clinic in two weeks for HIV results. 2. Monthly self breast exams were taught and shower card given. 3. Calcium intake discussed with her. Encouraged 1000 to 1200 mg daily and felt that she is getting this in for herself. 4. Loestrin with iron 1.12/10, 28 days x 3 cycles. Health benefits, instructions, risk factors, and danger signals all discussed with her. Her questions answered and control pamphlet given. She understands the need to return to clinic in three months for control pills evaluation, blood pressure check and refill. 5. I did recommend follow up in Mental Health for therapist regarding family of origin issues for her. 6. PMS reviewed with her and her questions answered. Also, preventive care and pamphlet on this given. Also the women's health specialist handout and phone number given to her. cc: documented in 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
--- OUTSIDE RECORDS SUMMARY | 2022-05-02 12:26 | XMS_ITS | Encounter Summary ---
:1970 Author Organization [facility] Address [address] [place] [address] Care Team Providers Name Role Phone Elsewhere, Pcp Primary Care Provider Unavailable Encounter Details Date Type Department Care Team Description 04/19/2022 Hospital Encounter Department of Annamaria De Luna Acquired; Laboratory Medicine Dewayne Dillon Myelofibrosis Primary (HCC) and Pathology, [address] [place] [address], [address] 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 COMPREHENSIVE Routine 04/19/2022 9:47 Splenomegaly Acq uired Results for this METABOLIC PANEL, S/P AM CDT Myelofibrosis Primar y procedure are in (HCC) the results section. TYPE AND SCREEN Routine 04/19/2022 9:11 Results f or this AM CDT procedure are i n the results section. documented in this encounter Results (ABNORMAL) Morphology Evaluation (Special smear) (04/19/2022 9:47 AM CDT) [facility] Method Time Signature Neutrophilic Segs 70 [...] Reviewed by: Liz 04/19/2022 11:46 AM CDT [facility] M Specimen Anatomical Collection Method Collection Time Receive d Time (Source) Location / / Volume Laterality Blood 04/19/2022 9:47 AM CDT 10:10 AM CDT Annamaria De Luna M.D. LAB PATHOLOGY/CYTOLOGY ORDER NAGI Performing Organization Address City/State/ZIP Code Phon e Number [facility] - [facility] [address] [place], [place] [address] [place] [address] Laboratories-[facility] [address] (ABNORMAL) CBC no call back, reflex T/S HGB <8 (04/19/2022 9:47 AM CDT) [facility] Method Time Signature Hemoglobin 7.9 (L) [...] - 6.45 x10(9)/L 04/19/2022 11:45 AM CDT [facility] Comment: Auto-diff results not valid. Se e manual differential. Specimen Anatomical Collection Method Collection Time Receive d Time (Source) Location / / Volume Laterality Blood (Blood, 04/19/2022 9:47 AM 04/19/20 22 Venous) CDT 10:10 AM CDT Annamaria De Luna M.D. LAB BLOOD NON ADD-ON Performing Organization Address City/State/ZIP Code Phon e Number [facility] - [address] [place], [place] [address] [facility] [place] [address] [facility] [address] [place] [address] [facility] [address] (ABNORMAL) Comprehensive Metabolic Panel [...] M.S. LAB BLOOD ADD-ON Performing Organization Address City/[facility] Phon e Number [facility] [address] Bilirubin, Direct (04/19/2022 9:47 AM CDT) P athologist Signature Bilirubin, <0.2 0.0 - 0.3 04/19/2022 DTL Direct, S mg/dL 11:02 AM CDT Specimen Anatomical Collection Method Collection Time Receive d Time (Source) Location / / Volume Laterality Blood (Blood, 04/19/2022 9:47 AM 04/19/20 Venous) CDT 10:32 AM CDT Aleyda Mcginnis P.A.-C., M.S. LAB BLOOD ADD-ON Performing Organization Address City/[facility] Phon e Number [facility] [address] (ABNORMAL) Prothrombin Time (PT) (04/19/2022 9:47 [...] M.S. LAB BLOOD ADD-ON Performing Organization Address City/[facility] Phon e Number [facility] - [address] [place] [address] Type and Screen (with reflex Antibody ID) (04/19/2022 9:11 AM CDT) [facility] gist Method Time Signature ABORh A Pos Not 04/19/2022 ETRM applicable 12:55 PM CDT Antibody Negative Negative 04/19/2022 ETRM Screen 1:07 PM CDT Type & Screen 04/22/2022 04/19/2022 ETRM Expiration 23:59 12:55 PM CDT Testing [place] DEFAULT 04/19/2022 ETRM Location 12:13 PM CDT Specimen Anatomical Collection Method Collection Time Receive d Time (Source) Location / / Volume Laterality Blood 04/19/2022 9:11 AM CDT 12:13 PM CDT Annamaria De Luna M.D. LAB BLOOD BANK TEST ORDERABL ES Performing Organization Address City/[facility] Phon e Number [facility] - [address] ETRM [address] documented in this encounter Visit Diagnoses Diagnosis Splenomegaly Acquired Myelofibrosis Primary (HCC) documented in this encounter Care Teams Podiatric Physician Relationship Specialty Start Date End Date Elsewhere, Pcp PCP - General 11/04/21 documented as of this encounter
--- OUTSIDE RECORDS SUMMARY | 2022-05-02 12:26 | XMS_ITS | Encounter Summary ---
:1970 Author Organization [facility] Address [address] [place] [address] Care Team Providers Name Role Phone Elsewhere, Pcp Primary Care Provider Unavailable Encounter Details Date Type Department Care Team Description 04/15/2022 Orders Only Division of Hematology in [place], [place] M.B.B.S. 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
--- OUTSIDE RECORDS SUMMARY | 2022-05-02 12:26 | XMS_ITS | Encounter Summary ---
:1970 Author Organization [facility] Address [address] [place] [address] Care Team Providers Name Role Phone Elsewhere, Pcp Primary Care Provider Unavailable Encounter Details Date Type Department Care Team Description 04/26/2022 Specialty Pharmacy [facility] Abhinav Arriaga, [address] Sarabjit Starks Pharm.D., R.Ph. 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 - 04/26/2022 4:36 PM CDT [facility] service discontinued at this time. documented in 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 Care Teams Tool Checker Relationship Specialty Start Date End Date Elsewhere, Pcp PCP - General 11/04/21 documented as of this encounter
--- OUTSIDE RECORDS SUMMARY | 2022-05-02 12:26 | XMS_ITS | Encounter Summary ---
:1970 Author Organization [facility] Address [address] [place] [address] Care Team Providers Name Role Phone Elsewhere, Pcp Primary Care Provider Unavailable Reason for Visit Reason Comments Lab results Encounter Details Date Type Department Care Team Description 04/15/2022 Clinical Communication Division of Hematology Janusz Govea, Lab results in [facility] milton ArringtonB.S. 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 yes. Thank you, Claudia Hematology [facility] documented in 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 Care Teams Envelope Sealer Relationship Specialty Start Date End Date Elsewhere, Pcp PCP - General 11/04/21 documented as of this encounter
--- OUTSIDE RECORDS SUMMARY | 2022-05-02 12:26 | XMS_ITS | Encounter Summary ---
:1970 Author Organization [facility] Address [address] [place] [address] Care Team Providers Name Role Phone Elsewhere, Pcp Primary Care Provider Unavailable Reason for Visit Outpatient (Routine) - Closed Specialty Diagnoses / Procedures Referred By Contact Refer red To Contact General Surgery Aleyda Mcginnis P.A.-C., [facility] M.S. 200 [place], [place] [phone] Referral ID Status Reason Start Date Expiration Date Visits Requ ested Visits Authorized [id number] Closed 03/18/2022 2025 1 1 Encounter Details Date Type Department Care Team Description 04/19/2022 Office Visit Division of Roxane Castellon Myelofibrosis Primary (HCC) (Primary Dx); Hepatobiliary and E, HERITAGE CONSULTANT, Splenomega ly Acquired; Pancreas Surgery in [facility] 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
--- OUTSIDE RECORDS SUMMARY | 2022-05-02 12:26 | XMS_ITS | Encounter Summary ---
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 Hemoglobin: 8.5 Hematocrit: 29.3 WBC: 23.57 ANC: 9.40 Platelets: 1121 Please note: Are there additional labs reported on the outside report? No documented in 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 Care Teams Retort Load Expediter Relationship Specialty Start Date End Date Elsewhere, Pcp PCP - General 11/04/21 documented as of this encounter
--- OUTSIDE RECORDS SUMMARY | 2022-05-02 12:26 | XMS_ITS | Encounter Summary ---
:1970 Author Organization [facility] Address [address] [place] [address] Care Team Providers Name Role Phone Elsewhere, Pcp Primary Care Provider Unavailable Reason for Referral Outpatient (Routine) - Authorized Specialty Diagnoses / Procedures Referred By Contact Refer red To Contact Hematology [facility] [address] [place] [phone] Referral ID Status Reason Start Date Expiration Date Visits V isits Requested Authorized [id number] Authorized 04/17/2022 04/16/2025 1 1 Scheduling Instructions In 4 months Reason for Visit Appointment Request (Routine) - Closed Specialty Diagnoses / Procedures Referred By Contact Refer red To Contact Hematology Referral ID Status Reason Start Date Expiration Date Visits Requ ested Visits Authorized [id number] Closed 03/21/2022 03/21/2023 1 1 Encounter Details Date Type Department Care Team Description 04/17/2022 Office Visit Division of Hematology Xuan, Myelo fibrosis Primary in [facility], (HCC) (Primary Dx) Bob M.B.B.S. 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 [...] months. Evy Foreman. CT CT Job ID: [id number] documented in this encounter Plan of Treatment Scheduled Orders Name Type Priority Associated Diagnoses Order S chedule CBC with Differential, Lab Routine Myelofibrosis Prim kasie Expected: Blood ([facility]) 07/18/2022 (Approximate), Expires: 07/18/2023 [facility] Result Pathology and Routine Myelofibrosis Primary Expec latonya: Cytology ([facility]) 07/18/2022 (Approximate), Expires: 04/17/2023 Comprehensive Lab Routine Myelofibrosis Primary Expec latonya: Metabolic Panel ([facility]) 07/18/2022 (Approximate), Expires: 07/18/2023 Uric Acid Lab Routine Myelofibrosis Primary Expect ed: (HCC) 07/18/2022 (Approximate), Expires: 07/18/2023 Scheduled Referrals Name Type Priority Associated Order Schedule Diagnoses Hematology office Outpatient Referral Routine Exp ected: visit (clinic) 07/18/2022 [facility]; (Approxima te), CMD; General Expires: 07/18/2023 documented as of this encounter Visit Diagnoses Diagnosis Myelofibrosis Primary (HCC) - Primary documented in this encounter Care Teams Registration Rep Relationship Specialty Start Date End Date Elsewhere, Pcp PCP - General 11/04/21 documented as of this encounter
--- OUTSIDE RECORDS SUMMARY | 2022-05-02 12:26 | XMS_ITS | Clinical Summary ---
:1970 Author Organization [facility] [place] [address] Care Team Providers Name Role Phone None [...] Comments Blood Pressure 113/66 05/24/2021 1:18 PM COOLER CONVEYOR LOADER Pulse 111 05/24/2021 1:18 PM COOLER CONVEYOR LOADER Temperature 36.2 ??C (97.1 ??F) 05/24/2021 1:18 PM COOLER CONVEYOR LOADER Respiratory Rate 20 05/24/2021 1:18 PM COOLER CONVEYOR LOADER Oxygen Saturation 94% 05/24/2021 11:07 AM COOLER CONVEYOR LOADER Inhaled Oxygen Concentration - - Weight 92.1 [...] Group MEDICARE PART B MEDICARE PART B [id number] 2020-Present ATTN: CLAIMS - HB USE ONLY HB ONLY [address] [place] [address] MEDICARE - PB MEDICARE PB [id number] 2020-Present ATT N: CLAIMS USE ONLY ONLY [address] [place] [address] UCARE [place] UCARE CONNECT [id number] 2020-Present [address] [place] [address] [employer] Occ Other 07/14/2000 [facility] [address] [employer] [facility] (Home) [phone] (Work) [place] [address] Care Teams District Sales Manager Relationship Specialty Start Date End Date None PCP - General 10/03/20 .
--- OUTSIDE RECORDS SUMMARY | 2022-05-02 12:26 | XMS_ITS | Clinical Summary ---
:1970 Author Organization [facility] Address [address] [place] [id number] Care Team Providers Name Role Phone Elsewhere, Pcp Primary Care Provider Unavailable Source Comments Patient records contain information from all sites at [facility]. For routine questions regarding patient records, call [phone] during business hours, M-F 8:00 AM - 5:00 PM Central Time. Record requests for emergency care only can be directed to [phone] at any time.[facility] Allergies No known active allergies Medications Medication [...] Added automatically from request for elier smart [id number] Hypertension Pulmonary 06/11/2021 Hyperuricemia 06/08/2021 Edema 06/08/2021 Elevated Creatinine 06/08/2021 Gastroesophageal Reflux Disease 06/08/2021 Splenomegaly Acquired 06/06/2021 Overview: Added automatically from request for elier smart [id number] Pancytopenia 06/06/2021 Fluid Overload Unspecified 06/06/2021 Anxiety [...] Primary (HCC) (Primary Dx); Pancreas Surgery E, MANAGER POST, Splenomegal y Acquired; C.N.P., M.S.N. Splenectomy T [...] B.Ch. 04/17/2022 Office Visit Hematology [place], Myelofibrosis Nasjonathan, Primary (HCC) MurphyB.S. (Primary Dx) 04/15/2022 Refill [...] Grotz, Hema Communication Pancreas Surgery Dewayne Brito 03/22/2022 Clinical Pharmacy Michelle Cano Communication I. [...] Pancreas Surgery Dewayne Brito 03/14/2022 Orders Only [facility] Internal Yao Tafoya Medicine M.D., M.S. [...] Rothman esthetic Medical Exam (Primary Dx); E MZahraaDZahraa Splenomegaly Acquired; Fausto Gaona, Myelofibrosis Primary (HCC); MKathleen Pancytopenia (H CC); Hypertension Pu lmonary (HCC); Tachycardia Sin us; Regurgitation T ricuspid; Chronic Pain Sy ndrome; Abdominal Pain 03/12/2022 Comprehensive Visit Radiology Lio Munizleroy mejía Acquired (Primary Dx); Awnda R, Pancytopenia (H CC); MANAGER POST, C.N.P., Myelofibrosis Primary (HCC); M.S.N. Anemia Of [...] try Communication Nasrin BoudreauxS. 02/22/2022 Clinical Hematology [facility], External Lab En try Communication Nasrin BoudreauxS. 02/22/2022 Documentation Hematology Isidro Zamarripa M.B., B.Ch. 02/21/2022 Clinical Hematology Stu, Rojas Loo M.D. 02/19/2022 Clinical Hematology [facility], External Lab En try Communication Nasrin BoudreauxS. 02/14/2022 Office Visit Hematology [facility], Myelofibrosis Naseema, Primary (HCC) NasrinSZahraa (Primary Dx) 02/13/2022 Hospital Encounter Radiology [facility], Myelofibr osis Naseema, Primary (HCC) NasrinS. 02/13/2022 Hospital Encounter Laboratory Medicine [facility], My elofibrosis Janusz, Primary (HCC) NasrinS. 02/11/2022 Clinical Hematology [facility], External Lab En try Communication Murphy BoudreauxBZahraaS. 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 at [facility] e.g. Abdomen / pins/screws/ rods Procedures [...] pro cedure are in the results section. [facility] ANE INTRODUCER Routine 03/13/2022 Results f or ONLY 11:12 AM CDT this procedure are in the results section. [facility] ANE CENTRAL LINE Routine 03/13/2022 Results for TRIPLE LUMEN 11:12 AM CDT this procedure are in the results section. [place] INS NON-BAY CVC Routine 03/13/2022 Results f [...] procedu re are in the results section. [facility] ANE RAPID Routine 03/13/2022 Results for INFUSION CATHETER 10:35 AM CDT this proce dure INSERTION are in the results section. ND US GUIDE VASC Routine 03/13/2022 Results for [...] IV CONTRAST COMPARISON: ??Comparison is made to [facility] prior studies, including most recent CT from [...] Evaluation (Special smear) (04/19/2022 9:47 AM CDT) [facility] Method Time Signature Neutrophilic Segs 70 [...] City/State/ZIP Code Phon e Number [facility] - [address] [place], [place] [address] [place] [address] [facility] [address] [facility] (ABNORMAL) CBC no call back, reflex T/S HGB <8 (04/19/2022 9:47 AM CDT) [facility] Method Time Signature Hemoglobin 7.9 (L) [...] - 6.45 x10(9)/L 04/19/2022 11:45 AM CDT [facility] Comment: Auto-diff results not valid. Se e manual differential. Specimen Anatomical Collection Method Collection Time Receive d Time (Source) Location / / Volume Laterality Blood (Blood, 04/19/2022 9:47 AM 04/19/20 22 Venous) CDT 10:10 AM CDT Annamaria De Luna M.D. LAB BLOOD NON ADD-ON Performing Organization Address City/State/ZIP Code Phon e Number [facility] - 200 [place], [place] [address] [facility] [place] [address] [facility] 200 [place] [address] [facility] 200 [facility] (ABNORMAL) Prothrombin Time (PT) (04/19/2022 9:47 AM CDT)Only the most recent of 2 resultswithin the time period is included. [facility] gist Method Time Signature Prothrombin 13.1 (H) [...] M.S. LAB BLOOD ADD-ON Performing Organization Address City/[facility] [place] Phon e Number [facility] - [address] [place] [address] Bilirubin, Direct (04/19/2022 9:47 AM CDT) athologist Signature Bilirubin, <0.2 0.0 - 0.3 04/19/2022 DT Direct, S mg/dL 11:02 AM CDT Specimen Anatomical Collection Method Collection Time Receive d Time (Source) Location / / Volume Laterality Blood (Blood, 04/19/2022 9:47 AM 04/19/20 22 Venous) CDT 10:32 AM CDT Aleyda Mcginnis P.A.-C., M.S. LAB BLOOD ADD-ON Performing Organization Address City/[facility] [place] Phon e Number [facility] - [address] (ABNORMAL) Comprehensive Metabolic Panel (04/19/2022 9:47 [...] City/State/ZIP Code Phon e Number [facility] - [address] [place], [place] [address] [facility] [place] [address] [facility] 200 [facility] Type and Screen (with reflex Antibody ID) (04/19/2022 9:11 AM CDT)Only the most recent of3 resultswithin the time period is included. [facility] Method Time Signature ABORh A Pos Not 04/19/2022 ETRM applicable 12:55 PM CDT Antibody Negative Negative 04/19/2022 ETRM Screen 1:07 PM CDT Type & Screen 04/22/2022 04/19/2022 ETRM Expiration 23:59 12:55 PM CDT Testing Edelstein DEFAULT 04/19/2022 ETRM Location 12:13 PM CDT Specimen Anatomical Collection Method Collection Time Receive d Time (Source) Location / / Volume Laterality Blood 04/19/2022 9:11 AM 2 CDT 12:13 PM CDT Annamaria De Luna M.D. LAB BLOOD BANK TEST ORDERABL ES Performing Organization Address City/[facility] Code Phon e Number [facility] - [address] [place], [place] [address] [facility] [place] [address] [facility] 200 [facility] (ABNORMAL) CBC without Differential (03/18/2022 6:27 AM CDT)Only the most recent of13 resultswithin the time period is included. [facility] Method Time Signature Hemoglobin 8.3 (L) 11.6 [...] City/State/ZIP Code Phon e Number [facility] - [address] [place] [address] [facility] [place] [address] [facility] 200 [facility] Basic Metabolic Panel (03/18/2022 6:27 AM CDT)Only [...] City/State/ZIP Code Phon e Number [facility] - [address] [place] [address] [facility] [place] [address] [facility] 200 [facility] (ABNORMAL) Hepatic Function Panel (03/16/2022 1:22 PM CDT) [facility] gist Method Time Signature Bilirubin, Total, S [...] LAB BLOOD AD D-ON Performing Organization Address City/[facility]/ZIP Code Phon e Number [facility] - [address] [place], [place] [address] [facility] [place] [address] [facility] [address] Transfuse Red Blood Cells : (03/16/2022 1:04 PM CDT)Only the most recent of7 resultswithin the time period is included. Nazario Bailey APRN, C.N.P., Rafael.P., M.S.N. BLOOD TRANSF USION ORDERABLES (ABNORMAL) Thromboelastograph, Kaolin + Heparinase (03/16/2022 7:24 AM CDT)Only the most recent of4 resultswithin the time period is included. [facility] gist Method Time Signature R-Heparinase, 5.2 1.9 - 6.5 03/16/2022 METH TEG min 9:37 AM CDT K-Heparinase, 0.8 (L) 0.9 - 1.8 03/16/2022 METH TEG min 9:37 AM CDT Angle-Heparina 79.7 (H) 65.5 - 77.1 03/16/2022 METH se, TEG degrees 9:37 AM CDT MA-Heparinase, >90.0 (H) 58.2 - 76.2 03/16/2022 METH TEG mm 9:37 AM CDT Wp67-Pskdhtrud 0.0 0.0 - 4.7 % 03/16/2022 METH e, TEG 9:37 AM CDT Td42-Dciqinser 0.0 0.0 - 15.0 03/16/2022 METH e, TEG % 9:37 AM CDT Specimen Anatomical Collection Method Collection Time Receive d Time (Source) Location / / Volume Laterality Blood (Blood, 03/16/2022 7:24 AM 03/16/20 7:29 Venous) CDT AM CDT Nazario Bailey APRN, C.N.P., Haydee.N.P., M.S.N. LAB BLOOD NO N ADD-ON Performing Organization Address City/State/ZIP Code Phon e Number [facility] - 200 [place], [place] [address] [facility] [place] [address] [facility] 200 [facility] (ABNORMAL) Troponin T, 2H/6H, 5th Gen (03/16/2022 [...] 03/16/20 3:17 Venous) CDT AM CDT Narrative [facility] - [facility] - 03/16/2022 3:40 AM CDT Specimen Information: Specimen ID: [id number] Specimen Type: Blood Specimen Collection Start Date: ??2:54 AM Specimen Received Date: 03/16/2022 ??3:17 AM Specimen ID: [id number] Specimen Type: Blood Mason Ardon LAB BLOOD TROPONIN Performing Organization Address City/State/ZIP Code Phon e Number [facility] - [address] [place] [address] [facility] [place] [address] [facility]-[address] Phosphorus Inorganic (03/16/2022 2:54 AM CDT)Only [...] M.S. LAB BLOOD ADD-ON Performing Organization Address City/[facility] Phon e Number [facility] - [address] [place] [address] [place] [address] (ABNORMAL) Magnesium (03/16/2022 2:54 AM CDT)Only [...] M.S. LAB BLOOD ADD-ON Performing Organization Address City/[facility] [place] Phon e Number [facility] - [id number] [place] [address] DX Chest Portable 1 View (03/16/2022 12:21 [...] City/State/ZIP Code Phon e Number [facility] - [address] [place], [place] [address] [facility] [place] [address] [facility] [address] (ABNORMAL) SPSMA Result (03/15/2022 [...] Manual Absolute 9.95 (H) 1.56 - 03/16/2022 [facility] Neutrophil Count 6.45 2:01 AM CDT x10(9)/L [...] City/State/ZIP Code Phon e Number [facility] - [address] [place], [place] [address] [place] [address] [facility] [address] [facility] (ABNORMAL) CBC with Differential, Blood (03/15/2022 11:42 PM CDT)Only the most recent of3 resultswithin the time period is included. [facility] gist Method Time Signature Hemoglobin 6.8 (L) [...] - 6.45 x10(9)/L 03/16/2022 2:01 AM CDT [facility] Comment: Auto-diff results not valid. Se e manual differential. Specimen Anatomical Collection Method Collection Time Receive d Time (Source) Location / / Volume Laterality Blood (Blood, 03/15/2022 11:42 03/15/2022 Venous) PM CDT 11:47 PM CDT Mason AlexandraSZahraa LAB BLOOD ADD-ON Performing Organization Address City/State/ZIP Code Phon e Number [facility] - [address] [place], [place] [address] [facility] [place] [address] [facility] [address] [place] [address] [facility] [address] [facility] ECG 12 Lead (03/15/2022 11:26 PM CDT) P athologist Signature Ventricular Rate 82 BPM MUSE ECG/Min ND Interval 150 ms MUSE QRSD Interval 84 ms MUSE QT Interval 374 ms MUSE QTC Interval 436 ms MUSE P Acme 15 degrees MUSE R Acme 55 degrees MUSE T Wave Acme 62 degrees MUSE Specimen Anatomical Collection Method [...] City/State/ZIP Code Phon e Number [facility] - [facility] [address] [place], [place] [address] [place] [address] [facility] [address] [facility] Heparin Anti-Xa Assay (03/15/2022 4:33 AM CDT)Only [...] LAB BLOOD NON ADD-ON Performing Organization Address City/[facility] [place] Phon e Number [facility] - [address] D[place] [address] (ABNORMAL) Thromboelastograph, Kaolin, Blood (03/15/2022 4:32 [...] City/State/ZIP Code Phon e Number [facility] - [address] [place] [address] [facility] [place] [address] Laboratories-[address] (ABNORMAL) pH (03/13/2022 5:00 PM CDT) P athologist Signature pH 7.28 (L) 7.35 - 7.45 03/13/2022 STMA pH 5:13 PM CDT Specimen Anatomical Collection Method Collection Time Receive d Time (Source) Location / / Volume Laterality Blood 03/13/2022 5:00 PM 5:08 CDT PM CDT Leena Trujillo M.D. LAB HISTORICAL OR DERS Performing Organization Address [facility] [place] Phon e Number [facility] - [address] Calcium, Ionized (03/13/2022 5:00 PM CDT)Only the most recent of6 resultswithin the time period is included. P athologist Signature Calcium, 5.23 4.65 - 5.30 03/13/2022 [facility] Ionized, B mg/dL 5:13 PM CDT Specimen Anatomical Collection Method Collection Time Receive d Time (Source) Location / / Volume Laterality Blood (Blood, 03/13/2022 5:00 PM 03/13/20 5:08 Venous) CDT PM CDT Leena Trujillo M.D. LAB BLOOD NON ADD -ON Performing Organization Address City/[facility] Code Phon e Number [facility] - [address] DX Chest 1 View (03/13/2022 4:05 [...] City/State/ZIP Code Phon e Number [facility] - [address] [place], [place] [address] [place] [address] [facility] [address] Patient Status (03/13/2022 3:10 [...] LAB BLOOD NON ADD-ON Performing Organization Address [facility] [place] Phon e Number [facility] - 200 [place], [place] [address] [facility] [place] [address] Sodium, B (03/13/2022 3:10 PM CDT)Only [...] LAB BLOOD NON ADD-ON Performing Organization Address City/[facility] [place] Phon e Number [facility] - [address] (ABNORMAL) Blood Gas with Coox, Arterial [...] LAB BLOOD NON ADD-ON Performing Organization Address [facility] [place] Phon e Number [facility] - 200 [place], [place] [address] [place], [place] [address] [place] [address] Potassium, Blood (03/13/2022 3:10 PM CDT)Only the [...] LAB BLOOD NON ADD-ON Performing Organization Address City/[facility] [place] Phon e Number [facility] - [address] [place], [place] [address] [place] [address] (ABNORMAL) Glucose, Whole Blood (03/13/2022 3:10 [...] City/State/ZIP Code Phon e Number [facility] - 200 [place], [place] [address] [facility] [place] [address] [facility] [address] [facility] Leukemia/Lymphoma Immunophenotyping by Flow Cytometry, Tissue (03/13/2022 2:41 PM CDT) Component Value Ref Test Analysis Performed At [facility] gist Range Method Time Signature LLPT Result Performed 03/14/2022 DTL 3:31 PM CDT Final These results are considered preliminary and require complete integration 03/14/2022 DTL Diagnosis: with the current pathology c ase [id number] for final interpretation. ??The 3:31 PM CDT result should NOT be interpreted in isolation for the purp oses of diagnosis or clinical management. Spleen, specimen for flow cytometric analysis ([id number]): No monotypic B-cell population, phenotypically abnorma l [...] reagent. Its performance characteristics were determined by [facility] in a manner consistent with CLIA requirements. [...] City/State/ZIP Code Phon e Number [facility] - 200 [place], [place] [address] [facility] [place] [address] [facility] 200 [facility] Surgical Pathology, Frozen Lab (03/13/2022 1:46 PM [...] homogenous. ??Hilar lymph nodes are not identified. ??Pediatric Clinical Nurse Specialist tissue submitted for permanent sections. ??Grossed by BRIAN Junior (Ann Marie)([facility]) . Block Summary A Spleen 03/19/2022 [facility] A1 Possible hemangioma - 1 4:43 PM A2 Possible hemangioma - 2 CDT A3 Pediatric Clinical Nurse Specialist infarcts - 1 A4 Pediatric Clinical Nurse Specialist infarcts - 2 A5 Pediatric Clinical Nurse Specialist infarcts - 3 A6 Additional sections of spleen - 1 A7 Additional sections of spleen - 2 A8 Additional sections of spleen - 3 A9 Additional sections of spleen - 4 A10 Additional sections of spleen - 5 Disclaimer This test was developed using an analyte specific reag ent. 03/19/2022 ST[facility] Its performance characteristics were determined by [place] 4:43 PM [facility] in a manner consistent with CLIA requirements. This CDT test has not been cleared or approved by the U.S. Food and Drug Administration. Interpretation FINAL DIAGNOSIS 03/19/2022 [facility] 4:43 PM A. ??Spleen, splenectomy: Atypical [...] City/State/ZIP Code Phon e Number [facility] - [address] [place], [place] [address] [place] [address] [facility] [address] Transfuse Platelets : (03/13/2022 12:04 PM CDT) Dena Coon M.D. BLOOD TRANSFUSION ORDERABLES ND INS NON-BAY CVC >5YR, LDA ANE CENTRAL [...] fellow participated in the procedure, and the siebel consultant was present for the entire procedure. [...] City/State/ZIP Code Phon e Number [facility] - [address] Fibrinogen (03/13/2022 11:12 AM CDT) P athologist Signature Fibrinogen, P 340 200 - 393 03/13/2022 STMA mg/dL 11:25 AM CDT Specimen Anatomical Collection Method Collection Time Receive d Time (Source) Location / / Volume Laterality Blood (Blood, 03/13/2022 11:12 03/13/2022 Arterial Line) AM CDT 11:12 AM CDT Dena Coon M.D. LAB BLOOD ADD-ON Performing Organization Address City/[facility]/ZIP Code Phon e Number [facility] - [id number] [place] [address] [place] US GUIDE VASC ACCESS, LDA ANE RAPID [...] image was created and stored. A 5 [facility] Helen[place] Jasiel 1 sheath was placed. The celiac ar carolyne was selected with a Rand B catheter. Arteriogram demonstrating massive splenomegaly and d istortion of the celiac axis due to mass effect. The sheath was advanced into the splenic artery and a 4 [facility] Helenian glide catheter was advanced further into the [...] image was created and stored. A 5 [facility] Jasiel 1 sheath was placed. The celiac ar carolyne was selected with a Rand B catheter. Arteriogram demonstrating massive splenomegaly and d istortion of the celiac axis due to mass effect. The sheath was advanced into the splenic artery and a 4 [facility] Helenian glide catheter was advanced further into the [...] ETT location: oral VL device: glide scope Moyers scope blade size: 3 Adult tube size: [...] Airway event: no complications Meghan Carson Berenice MANAGER POST, DISPENSING AND MEASURING OPTICIAN ANESTHESIA ORDERABLES Non-Radiology Image-Anesthesiology Image Exam (03/13/2022 [...] Organization Address City/State/ZIP Code Phon e Number [facility] NA SARS Coronavirus 2, Molecular Detection, PCR, Varies Asymptomatic (03/12/2022 9:37 AM CDT) [facility] Method Time Signature COVID-19, Swab, 03/12/2022 [...] ----ADDITIONAL INFORMATION---- This RT-PCR test using the THREAT STREAM SARS-Co V-2 Assay ( [employer].) performed on the THREAT STREAM Two Module System has received Emergency Use Authorization (EUA) by the U.S. Food and Drug Administration, and is modified from the switchboard operator's instructions with a bridging study. Performance characteristics were verifie d by [facility] in a manner consistent with CLIA requirements. Visit the CDC website: https://www.cdc.g ov/coronavirus/ for the most recent guidelines on [place] virus testing. Fact Sheet for Healthcare Providers: https://www.fda.gov/media/336482/downloa d Fact Sheet for Patients: https://www.fda.gov/media/748060/downloa d Specimen Anatomical Collection Method Collection Time Receive d Time (Source) Location / / Volume Laterality Varies 03/12/2022 9:37 AM 2 (Nasopharynx) CDT 10:32 AM CDT Hema Rothman M.D. LAB MICROBIOLOGY - GENERAL O RDERABLES Performing Organization Address City/State/ZIP Code Phon e Number [facility] - [address] [place], [place] [address] [facility] [place] [address] [facility] [address] [facility] US Spleen (02/13/2022 4:46 PM CDT) Anatomical [...] LD (Lactate Dehydrogenase) (02/13/2022 4:01 PM CDT) [facility] Method Time Signature Lactate 676 (H) 122 - 222 02/13/2022 DTL Dehydrogenase U/L 5:26 PM CDT (LD), S Specimen Anatomical Collection Method Collection Time Receive d Time (Source) Location / / Volume Laterality Blood (Blood, 02/13/2022 4:01 PM 02/14/20 4:30 Venous) CDT PM CDT Janusz Ardon LAB BLOOD NON ADD-ON Performing Organization Address City/State/ZIP Code Phon e Number [facility] - [address] [place], [place] [address] [facility] [place] [address] [facility] [address] from Last 3 Months Insurance Payer Benefit Plan Subscriber ID Effective Phone Address Typ e / Group Dates MEDICARE MEDICARE A [id number] 2020-Prese [address] [place] [address] UCARE UCARE CONNECT [id number] 2021-Prese [phone] [address] Medicaid HMO nt 25 [place] [address] (Home) [address] (Work) [phone] Advance Directives For more information, please contact: [phone] Latest Code Status on File Code Status Date Activated Date Inactivated Comments Full Code 03/13/2022 8:14 PM 03/18/2022 12:42 PM Question Answer Comments Full Code: Discussed Code Status History Code Status Date Activated Date Inactivated Comments Full Code 06/06/2021 1:51 PM 06/11/2021 6:52 PM Question Answer Comments Full Code: Discussed Care Teams Net Programmer Relationship Specialty Start Date End Date Elsewhere, Pcp PCP - General 11/04/21
--- OUTSIDE RECORDS SUMMARY | 2022-05-02 12:26 | XMS_ITS | Encounter Summary ---
:1970 Author Organization [facility] Address [address] [place] [id number] Care Team Providers Name Role Phone Elsewhere, Pcp Primary Care Provider Unavailable Encounter Details Date Type Department Care Team Description 04/18/2022 Documentation Division of Hematology in [facility], [place], [place], B.Ch. 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
--- OUTSIDE RECORDS SUMMARY | 2022-05-02 12:26 | XMS_ITS | Encounter Summary ---
:1970 Author Organization [facility] Address [address] [place] [id number] Care Team Providers Name Role Phone Elsewhere, Pcp Primary Care Provider Unavailable Reason for Referral MRI/CAT/PET Scan (Routine) - Closed Specialty Diagnoses / Procedures Referred By Contact Refer red To Contact Radiology Diagnoses Splenomegaly Acquired Myelofibrosis Primary (HCC) Aleyda Mcginnis P.A.-C., [place] Procedures CT Abdomen Pelvis with IV Contrast [facility] [address] [place] [phone] Referral ID Status Reason Start Date Expiration Date Visits Requ ested Visits Authorized [id number] Closed 03/18/2022 03/18/2023 1 1 Reason for Visit MRI/CAT/PET Scan (Routine) - Closed Specialty Diagnoses / Procedures Referred By Contact Refer red To Contact Radiology Diagnoses Splenomegaly Acquired Myelofibrosis Primary (HCC) Aleyda Mcginnis P.A.-C., [place] Procedures CT Abdomen Pelvis with IV Contrast [facility] 200 [place] [phone] Referral ID Status Reason Start Date Expiration Date Visits Requ ested Visits Authorized [id number] Closed 03/18/2022 03/18/2023 1 1 Encounter Details Date Type Department Care Team Description 04/19/2022 Hospital Encounter Department of Aleyda Mcginnis Acquired; Radiology, Lexus Herndon P.A.-C., Myelofibros is Primary (HCC) Building, in [facility] 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
--- OUTSIDE RECORDS SUMMARY | 2022-05-02 12:26 | XMS_ITS | Encounter Summary ---
:1970 Author Organization [facility] Address [address] [place] [address] Care Team Providers Name Role Phone Elsewhere, Pcp Primary Care Provider Unavailable Reason for Referral Outpatient (Routine) - Authorized Specialty Diagnoses / Procedures Referred By Contact Refer red To Contact [facility] 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 encounter Plan of Treatment Scheduled Orders Name Type Priority Associated Diagnoses Order S chedule Alkaline Phosphatase Lab Routine Myelofibrosis Primar y Expected: ([facility]) 08/22/2022 (Approximate), Expires: 07/19/2023 ALT (Alanine Lab Routine Myelofibrosis Primary Expect ed: Aminotransferase) ([facility]) 08/22/2022 (Approximate), Expires: 07/19/2023 AST (Aspartate Lab Routine Myelofibrosis Primary Expe cted: Aminotransferase) ([facility]) 08/22/2022 (Approximate), Expires: 07/19/2023 Bilirubin, Total Lab Routine Myelofibrosis Primary Ex pected: ([facility]) 08/22/2022 (Approximate), Expires: 07/19/2023 CBC with Differential, Lab Routine Myelofibrosis Prim kasie Expected: Blood ([facility]) 08/22/2022 (Approximate), Expires: 07/19/2023 Creatinine with Lab Routine Myelofibrosis Primary Exp ected: Estimated GFR ([facility]) 08/22/2022 (Approximate), Expires: 07/19/2023 Ferritin Lab Routine Myelofibrosis Primary Expect ed: ([facility]) 08/22/2022 (Approximate), Expires: 07/19/2023 LD (Lactate Lab Routine Myelofibrosis Primary Expect ed: Dehydrogenase) ([facility]) 08/22/2022 (Approximate), Expires: 07/19/2023 Potassium Lab Routine Myelofibrosis Primary Expect ed: ([facility]) 08/22/2022 (Approximate), Expires: 07/19/2023 Sodium Lab Routine Myelofibrosis Primary Expect ed: ([facility]) 08/22/2022 (Approximate), Expires: 07/19/2023 LD (Lactate Lab Routine Myelofibrosis Primary Expect ed: Dehydrogenase) ([facility]) 08/22/2022 (Approximate), Expires: 07/19/2023 [facility] Result Pathology and Routine Myelofibrosis Primary Expec latonya: Cytology ([facility]) 08/22/2022 (Approximate), Expires: 07/19/2023 Reticulocytes Lab Routine Myelofibrosis Primary Expec latonya: ([facility]) 08/22/2022 (Approximate), Expires: 07/19/2023 Scheduled Referrals Name Type Priority Associated Order Schedule Diagnoses Hematology office Outpatient Referral Routine Exp ected: visit (clinic) 08/22/2022 [facility]; (Approxima te), BMT; General Expires: 07/19/2023 documented as of this encounter Visit Diagnoses Diagnosis Myelofibrosis Primary (HCC) - Primary documented in this encounter Care Teams Equipment Maintenance Tech Relationship Specialty Start Date End Date Elsewhere, Pcp PCP - General 11/04/21 documented as of this encounter
--- OUTSIDE RECORDS SUMMARY | 2022-05-02 12:27 | XMS_ITS | Encounter Summary ---
:1970 Author Organization [facility] Address [address] [place] [phone] Care Team Providers Name Role Phone Elsewhere, Pcp Primary Care Provider Unavailable Reason for Referral Outpatient (Routine) - Closed Specialty Diagnoses / Procedures Referred By Contact Refer red To Contact General Surgery Aleyda Mcginnis P.A.-C., [facility] M.S. [address] [place] [phone] Referral ID Status Reason Start Date Expiration Date Visits Requ ested Visits Authorized [id number] Closed 03/18/2022 2025 1 1 Scheduling Instructions Candidatz patient. To see Roxane/Rajani in [address] scan and labs. Hematology will be ordering f/u for the same time frame. MRI/CAT/PET Scan (Routine) - Closed Specialty Diagnoses / Procedures Referred By Contact Refer red To Contact Radiology Diagnoses Splenomegaly Acquired Myelofibrosis Primary (HCC) Aleyda Mcginnis P.A.-C., [facility] Procedures CT Abdomen Pelvis with IV Contrast M.S. [address] [place] [phone] Referral ID Status Reason Start Date Expiration Date Visits Requ ested Visits Authorized [id number] Closed 03/18/2022 03/18/2023 1 1 Encounter Details Date Type Department Care Team Description 03/13/2022 - Hospital Encounter [facility] Hema Rothman Acquired (Primary Dx); 03/18/2022 Hospital, Hernando Brito M.D. 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 Primary Team: [facility] General Surgery - Stephan Primary Care Providers: [...] SPLENECTOMY. Hema Rothman M.D.Steadman, Jessica A, M.B.BZahraaSZahraa [facility] ROMB OR DISCHARGE DISPOSITION Home or Self [...] follow up in 1 week with local nurse practical for blood work (CBC). Please have these results faxed to [phone] attn: Dr. Rothman for review, or send [...] splenectomy, 03/13/2022. The patient was admitted to [facility]. The patient was taken to the operating [...] sent through Care Everywhere. Acetaminophen (By mouth) (Czech)Cyclobenzaprine (By mouth) (Czech)Enoxaparin (By injection) (Czech)Oxycodone, Rapid Release (By mouth) (Czech)documented in this encounter Medications at Time of [...] We will arrange outpatient follow-up with primary nurse practical Dr. Govea when she returns for her 4week surgical follow-up Plan discussed with Hematology railroad design consultant Dr. Kanu Talamantes who is in agreement with the plan. We plan to sign off. Please page [phone] 7a-5p and [phone] 5p-7a with any additional questions. Ashawaygenesis Alfredo, MS-4 Hematology Consult Service Edin Krueger [...] Coronavirus 2, Molecular Detection, PCR, Varies Asymptomatic [[id number]] Collected: 03/12/22 0937 Lab Status: Final result [...] ----ADDITIONAL INFORMATION---- This RT-PCR test using the [employer] SARS-CoV-2 Assay ( [employer].) performed on the [employer] Two Module System has received Emergency Use Authorization (EUA) by the U.S. Food and Drug Administration, and is modified from the rolling attendant's instructions with a bridging study. Performance characteristics were verified by [facility] in a manner consistent with CLIA requirements. Visit the CDC website: https://www.cdc.gov/coronavirus/ for the most recent guidelines on Coronavirus testing. Fact Sheet for Healthcare Providers: https://www.fda.gov/media/060389/download Fact Sheet for Patients: https://www.fda.gov/media/404853/download Physical Exam Physical Exam General: Alert and [...] today. Was told to follow up with nurse practical for weekly CBC, splenectomy vaccines in 2 [...] Patient is being cared for by the [facility] team. Edin Krueger M.D. PGY1 [phone] Kira Lockhart M.D. - 2022 9:51 AM [...] We will arrange outpatient follow-up with primary nurse practical Dr. Govea when she returns for her 4week surgical follow-up. Plan discussed with Hematology railroad design consultant Dr. Ponce Miller who is in agreement with the plan. We will continue to follow. Please page [phone] 7a-5p and [phone] 5p-7a with any questions. Kira Lockhart M.D. [...] Coronavirus 2, Molecular Detection, PCR, Varies Asymptomatic [[id number]] Collected: 03/12/22 0937 Lab Status: Final result [...] ----ADDITIONAL INFORMATION---- This RT-PCR test using the [employer] SARS-CoV-2 Assay ( [employer]) performed on the [employer] Two Module System has received Emergency Use Authorization (EUA) by the U.S. Food and Drug Administration, and is modified from the rolling attendant's instructions with a bridging study. Performance characteristics were verified by [facility] in a manner consistent with CLIA requirements. Visit the CDC website: https://www.cdc.gov/coronavirus/ for the most recent guidelines on Coronavirus testing. Fact Sheet for Healthcare Providers: https://www.fda.gov/media/055504/download Fact Sheet for Patients: https://www.fda.gov/media/748977/download Physical Exam Physical Exam Assessment Assessment and [...] Patient is being cared for by the [facility] team. Edin Krueger [phone] Tesfaye Ibrahim M.B.B.S. - 03/16/2022 1:42 PM [...] for Hgb < 7.0 Plan: - Discontinue SCREEN PRINTING MACHINE OPERATOR HELPER - Regular diet - Continue trending Hb - Increase Lovenox dosing Dispo: Discharge in a few days. Follow up plan would be to see her back in [address] pancreas protocol. Patient was seen and examined with Dr. Roy. Please don't hesitate to contact [facility] service with any questions or concerns. Jonathon [...] is very hungry. Pain well controlled on SCREEN PRINTING MACHINE OPERATOR HELPER pump. Requiring 1L/min oxygen via nasal cannula. [...] We will arrange outpatient follow-up with primary nurse practical Dr. Govea. Plan discussed with Hematology railroad design consultant Dr. Ponce Miller and Hematology fellow Dr. Annamaria De Luna. We will continue to follow. Please page [phone] 7a-5p and [phone] 5p-7a with any questions. Kira Lockhart M.D. [...] prn (58 yest, none since [place]); HM SCREEN PRINTING MACHINE OPERATOR HELPER (11.6 yest, 4 since [place]) Good UOP, [...] splenectomy vaccines Rivka Prabhakar Pharm.D., R.Ph. Juni Ashaway R - 03/15/2022 11:37 AM CDT Hematology [...] for anticoagulation upon discharge with her primary Tooler, Dr. Govea. Plan discussed with Hematology railroad design consultant Dr. Ponce Miller and Hematology fellow Dr. Annamaria De Luna. We will continue to follow. Please page [phone] 7a-5p and [phone] 5p-7a with any questions. Lois Alfredo, MS-4 [...] 51-year-old female with primary myelofibrosis (CALR and [id number]) failed several treatment in the past and [...] overnight. Pain is appropriately controlled with Dilaudid SCREEN PRINTING MACHINE OPERATOR HELPER and intermittent p.o. oxycodone. No nausea and [...] and afebrile. Pain is appropriately controlled on SCREEN PRINTING MACHINE OPERATOR HELPER and intermittent oxycodone. On exam, abdomen is [...] and she has preemptively been using the SCREEN PRINTING MACHINE OPERATOR HELPER for mobilization. She denies any nausea, vomiting, somnolence or additional symptoms. She had a lot of trouble with pain control yesterday evening and thePCA was starting which provided the most improvement. Yesterday's requirements: - Tylenol 100 mg - Morphine 60 mg PO - Oxycodone 30 mg PO - Hydromorphone SCREEN PRINTING MACHINE OPERATOR HELPER 3.2 mg total Current Medications: - Tylenol 1000 mg q6h - Hydromorphone SCREEN PRINTING MACHINE OPERATOR HELPER 0.4/10/8 - Morphine 60 mg BID + [...] Dobbins R.N.) Pain Interventions: Medication (See MAR) (SCREEN PRINTING MACHINE OPERATOR HELPER available) (03/14/222352 : Prakash Murry R.N.) Response [...] 24-48 hr with adequate control on hydromorphone SCREEN PRINTING MACHINE OPERATOR HELPER would calculate total dose needed over 24 [...] - Lidocaine patch PRN - Voltaren gel, jdficclx-rjteilwqccvds-epsjfmxgp-lipoderm gel, bengay PRN -Consider integrative medicine techniques [...] Q 1-2 hours PRN or initiation of SCREEN PRINTING MACHINE OPERATOR HELPER. - If above ineffective transition to Hydromorphone SCREEN PRINTING MACHINE OPERATOR HELPER level 1 and DC IV push. - [...] of discontinuation: first remove ketamine followed by SCREEN PRINTING MACHINE OPERATOR HELPER then IV. Start at whichever step based on requirements from previous section. If ketamine started and reached max dose (0.3 mg/kg/min ) can halve it for a couple hours to ensure pain managed effectively then discontinue completely. The only risk with discontinuation is increasedpain and this can be managed with an increase in oral regiment if felt necessary by primary service. 2. If SCREEN PRINTING MACHINE OPERATOR HELPER utilized, when discontinuing assess current oral regiment to identify if increased oral dosage of medications is needed to help mitigate the IV requirements. When discontinuing the SCREEN PRINTING MACHINE OPERATOR HELPER, should continue to have IV PRN rescue available. 3. If requiring a large amount of IV medications (SCREEN PRINTING MACHINE OPERATOR HELPER or rescue) would recommend optimizing oral oxycodone/hydromorphone [...] were discussed with Dr. Woods, Pain Medicine railroad design consultant. We will sign off. Please call the relevantservice pager to clarify further or raise concerns (Mandaeism:[phone] or [place]: [phone]). Leena Sandhu M.D. Anesthesiology and Perioperative Medicine CA-1/PGY-2 Pager #[phone] Associated attestation - Sameer Woods M.D. - 03/15/2022 3:35 PM CDT I saw and evaluated the patient, participating in the roa portions of the service. I reviewed the resident/fellow???s note. I agree with the resident/fellow???s findings and plan. Lois Alfredo Katrina - 03/14/2022 10:27 AM CDTAssociated Order(s): IP CONSULT TO HEMATOLOGY Hematology Consult Service SUBJECTIVE REFERRING SERVICE [facility] General Surgery - Stephan Reason for consult: [...] cm). Subsequent bone marrow examination by outside nurse practical, Dr. Hu, revealed CALR primary myelofibrosis. Her previous treatments are outlined below: 08/2015-01/2016: Jakafi, stopped due to lack of response and transfusion dependent anemia 05/2016-08/2016: [id number] clinical study utilizing alisertib, completed 3 cycles, [...] Fellow, Dr. Annamaria De Luna. Please page [phone] 7a-5p and [phone] 5p-7a with any questions. Lois Alfredo, MS-4 [...] questions or concerns. Discharged to home/ self-care. Sihra Anand R.N. - 2022 5:23 AM CDT [...] discharge. Will arrange outpatient follow-up with primary Tooler Dr. Govea. Plan discussed with Hematology railroad design consultant Dr. Ponce Miller and Hematology fellow Dr. Annamaria De Luna. We will continue to follow. Please page [phone] 7a-5p and [phone] 5p-7a with any questions. Lois Alfredo, MS-4 Hematology Consult Service documented in this encounter OR Notes Op Note - Hema Rothman M.D. 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 [...] splenectomy, 03/13/2022. The patient was admitted to [facility]. The patient was taken to the operating [...] Name Type Priority Associated Diagnoses Order [facility] Surgery Outpatient Referral Routine Expec latonya: office [...] City/State/ZIP Code Phon e Number [facility] - [address] [place] [phone] [facility] [place] [address] Laboratories-[facility] 200 [facility] Bilirubin, Direct (04/19/2022 9:47 AM CDT) P athologist Signature Bilirubin, <0.2 0.0 - 0.3 04/19/2022 DTL Direct, S mg/dL 11:02 AM CDT Specimen Anatomical Collection Method Collection Time Receive d Time (Source) Location / / Volume Laterality Blood (Blood, 04/19/2022 9:47 AM 04/19/20 Venous) CDT 10:32 AM CDT Aleyda Mcginnis P.A.-C., M.S. LAB BLOOD ADD-ON Performing Organization Address City/[facility] Phon e Number [facility] - [address] [place] [address] 05 [facility] [place] [address] [facility]-[address] (ABNORMAL) Prothrombin Time (PT) (04/19/2022 9:47 [...] City/State/ZIP Code Phon e Number [facility] - [address] [place] [address] [facility] [place] [place] [address] Laboratories-[address] Basic Metabolic Panel (03/18/2022 6:27 AM [...] City/State/ZIP Code Phon e Number [facility] - [address] [place] [address] [facility] [place] [address] [facility] 200 [facility] (ABNORMAL) CBC without Differential (03/18/2022 6:27 AM CDT) [facility] Method Time Signature Hemoglobin 8.3 (L) 11.6 [...] City/State/ZIP Code Phon e Number [facility] - 200 [place], [place] [address] [facility] [place] [address] [facility] 200 [facility] (ABNORMAL) Basic Metabolic Panel (2022 3:43 [...] LAB BLOOD AD D-ON Performing Organization Address City/State/[facility] Code Phon e Number [facility] - [address] [place] [phone] [facility] [place] [place] [address] [facility] 200 [facility] (ABNORMAL) CBC without Differential (2022 3:43 AM CDT) [facility] gist Method Time Signature Hemoglobin 7.3 [...] LAB BLOOD AD D-ON Performing Organization Address City/[facility] Phon e Number [facility] - [address] [place], [place] [address] [place] [address] [place] [address] [address] Laboratories-[address] (ABNORMAL) Hepatic Function Panel (03/16/2022 1:22 PM CDT) [facility] Method Time Signature Bilirubin, Total, S 0.4 [...] LAB BLOOD AD D-ON Performing Organization Address City/[facility] Phon e Number [facility] - [address] [address] [facility] [address] [facility] (ABNORMAL) CBC without Differential (03/16/2022 1:22 PM CDT) [facility] Method Time Signature Hemoglobin 7.6 (L) 11.6 [...] City/State/ZIP Code Phon e Number [facility] - 200 [place], [place] [address] [facility] [place] [place] [address] [facility] 200 [facility] Transfuse Red Blood Cells : (03/16/2022 1:04 PM CDT) Vanda Bustamante APRN.N.P., Haydee.N.P., M.S.N. BLOOD TRANSF USION ORDERABLES Transfuse Red Blood Cells : , 1 Units (03/16/2022 1:04 PM CDT) Vanda Bustamante APRN.N.P., D.N.P., M.S.N. BLOOD TRANSF USION ORDERABLES (ABNORMAL) CBC without Differential (03/16/2022 9:04 AM CDT) [facility] Method Time Signature Hemoglobin 7.1 (L) 11.6 [...] City/State/ZIP Code Phon e Number [facility] - [address] [place], [place] [address] [facility] [place] [address] [facility] [address] Type and Screen (with reflex Antibody ID) (03/16/2022 7:26 AM CDT) [facility] Method Time Signature ABORh A Pos Not [...] BA NK TEST ORDERABLES Performing Organization Address [facility] Phon e Number [facility] [address] [place], [place] [address] [facility] [place] [address] [facility] 200 [facility] (ABNORMAL) Thromboelastograph, Kaolin + Heparinase (03/16/2022 7:24 AM CDT) [facility] gist Method Time Signature R-Heparinase, 5.2 1.9 - 6.5 03/16/2022 [facility] TEG min 9:37 AM CDT K-Heparinase, 0.8 (L) 0.9 - 1.8 03/16/2022 [facility] TEG min 9:37 AM CDT Angle-Heparina 79.7 (H) 65.5 - 77.1 03/16/2022 M[facility] se, TEG degrees 9:37 AM CDT MA-Heparinase, >90.0 (H) 58.2 - 76.2 03/16/2022 [facility] TEG mm 9:37 AM CDT Tr71-Uutrbcjbe 0.0 0.0 - 4.7 % 03/16/2022 [facility] e, TEG 9:37 AM CDT We31-Dbmaxrhvb 0.0 0.0 - 15.0 03/16/2022 [facility] e, TEG % 9:37 AM CDT Specimen Anatomical Collection Method Collection Time Receive d Time (Source) Location / / Volume Laterality Blood (Blood, 03/16/2022 7:24 AM 03/16/20 22 7:29 Venous) CDT AM CDT Nazario Bailey APRN, C.N.P., D.N.P., M.S.N. LAB BLOOD NO N ADD-ON Performing Organization Address [facility] Code Phon e Number [facility] - [address] [place], [place] [address] [facility] [place] [address] [facility] 200 [facility] (ABNORMAL) Troponin T, 2H/6H, 5th Gen [...] 03/16/20 3:17 Venous) CDT AM CDT Narrative [facility] - 03/16/2022 3:40 AM CDT Specimen Information: Specimen ID: [id number] Specimen Type: Blood Specimen Collection Start Date: ??2:54 AM Specimen Received Date: 03/16/2022 ??3:17 AM Specimen ID: [id number] Specimen Type: Blood Mason Ardon LAB BLOOD TROPONIN Performing Organization Address City/State/ZIP Code Phon e Number [facility] [address] [place] [address] 05 [facility] [place] [address] Phosphorus Inorganic (03/16/2022 2:54 AM CDT) P athologist Signature Phosphorus 3.0 2.5 - 4.5 03/16/2022 DTL (Inorganic), S mg/dL 3:40 AM CDT Specimen Anatomical Collection Method Collection Time Receive d Time (Source) Location / / Volume Laterality Blood (Blood, 03/16/2022 2:54 AM 03/16/20 3:16 Venous) CDT AM CDT Aleyda Mcginnsi P.A.-C., M.S. LAB BLOOD ADD-ON Performing Organization Address City/State/ZIP [facility] Phon e Number [facility] - [address] [place], [place] [address] [facility] [place] [id number] [address] (ABNORMAL) Magnesium (03/16/2022 2:54 AM CDT) P athologist Signature Magnesium, S 2.7 (H) 1.7 - 2.3 03/16/2022 DTL mg/dL 3:40 AM CDT Specimen Anatomical Collection Method Collection Time Receive d Time (Source) Location / / Volume Laterality Blood (Blood, 03/16/2022 2:54 AM 03/16/20 3:16 Venous) CDT AM CDT Aleyda Mcginnis P.A.-C., M.S. LAB BLOOD ADD-ON Performing Organization Address City/[facility] Phon e Number [facility] - [address] (ABNORMAL) CBC without Differential (03/16/2022 2:54 [...] City/State/ZIP Code Phon e Number [facility] - [address] [place], [place] [address] [facility] [place] [address] [facility] [address] [place] [address] [facility] [address] (ABNORMAL) Basic [...] City/State/ZIP Code Phon e Number [facility] - [address] [place], [place] [address] [facility] [place] [address] [facility] [address] DX Chest [...] (ABNORMAL) SPSMA Result (03/15/2022 11:42 PM CDT) [facility] Method Time Signature Neutrophilic Segs 85 (H) 50 - 75 % 03/16/2022 [facility] 2:01 AM CDT Monocytes 7 2 - 11 % 03/16/2022 [facility] 2:01 AM CDT Basophils 2 0 - 2 % 03/16/2022 [facility] 2:01 AM CDT Metamyelocytes 2 (H) <1 % 03/16/2022 [facility] 2:01 AM CDT Myelocytes 4 (H) <0.5 % 03/16/2022 [facility] 2:01 AM CDT Nucleated RBC 174 /100 WBC 03/16/2022 [facility] 2:01 AM CDT Manual Absolute 9.95 (H) 1.56 - 03/16/2022 [facility] Neutrophil Count 6.45 2:01 AM [...] City/State/ZIP Code Phon e Number [facility] - 200 [place], [place] [address] [place] [address] [facility] 200 [facility] (ABNORMAL) CBC with Differential, Blood (03/15/2022 11:42 PM CDT) [facility] Method Time Signature Hemoglobin 6.8 (L) 11.6 [...] Leukocytes 11.7 (H) 3.4 - 9.6 03/16/2022 [facility] x10(9)/L 2:01 AM CDT Comment: Corrected for normoblasts. Neutrophils SeeComment 1.56 - 6.45 x10(9)/L 03/16/2022 2:01 AM CDT [facility] Comment: Auto-diff results not valid. Se e manual differential. Specimen Anatomical Collection Method Collection Time Receive d Time (Source) Location / / Volume Laterality Blood (Blood, 03/15/2022 11:42 03/15/2022 Venous) PM CDT 11:47 PM CDT Mason ArringtonB.S. LAB BLOOD ADD-ON Performing Organization Address City/[facility]/ZIP [facility] Phon e Number [facility] - [address] [place], [place] [address] [address] [facility] METH [place], [place] [phone] [place] [id number] [place] [address] (ABNORMAL) Troponin T, Baseline, 5th gen (03/15/2022 11:42 PM CDT) athologist Signature Troponin T, 13 (H) <=10 ng/L 03/16/2022 DT Baseline, 5th 12:33 AM CDT gen Specimen Anatomical Collection Method Collection Time Receive d Time (Source) Location / / Volume Laterality Blood (Blood, 03/15/2022 11:42 03/16/2022 Venous) PM CDT 12:10 AM CDT Mason ArringtonB.S. LAB BLOOD TROPONIN Performing Organization Address City/[facility]/ZIP Code Phon e Number [facility] - [address] [place], [place] [address] [place], [place] [phone] [place] [address] ECG 12 Lead (03/15/2022 11:26 PM CDT) P athologist Signature Ventricular Rate 82 BPM MUSE ECG/Min CA Interval 150 ms MUSE QRSD Interval 84 ms MUSE QT Interval 374 ms MUSE QTC Interval 436 ms MUSE P [place] 15 degrees MUSE R [place] 55 degrees MUSE T Wave [place] 62 degrees MUSE Specimen Anatomical Collection Method [...] T waves have changed Reviewed by REG Arguellse Mason Ardon ECG ORDERABLES Performing Organization Address City/State/ZIP Code Phon e Number MUSE MIGUEL ANGEL NA (ABNORMAL) CBC without Differential (03/15/2022 6:55 PM CDT) [facility] gist Method Time Signature Hemoglobin 7.1 [...] Performing Organization Address City/[facility] Phon e Number [facility] - [address] (ABNORMAL) CBC without Differential (03/15/2022 8:19 AM CDT) [facility] Method Time Signature Hemoglobin 7.3 (L) 11.6 [...] M.D. LAB BLOOD ADD-ON Performing Organization Address City/[facility] [facility] Phon e Number [facility] - [address] (ABNORMAL) NT-Pro B-Type Natriuretic Peptide (BNP) [...] City/State/ZIP Code Phon e Number [facility] - 200 [place], [place] [address] [facility] [place] [address] [facility] 200 [facility] (ABNORMAL) Basic Metabolic Panel (03/15/2022 4:33 AM CDT) athologist [facility] Potassium, S 5.2 3.6 - 5.2 03/15/2022 [...] City/State/ZIP Code Phon e Number [facility] - [address] [place] [address] [facility] [place] [address] [facility] 200 [facility] (ABNORMAL) CBC without Differential (03/15/2022 4:33 AM CDT) [facility] gist Method Time Signature Hemoglobin 7.2 [...] M.S.N. LAB BLOOD ADD-ON Performing Organization Address City/[facility] Phon e Number [facility] - 200 [place], [place] [address] [place] [address] Laboratories-[address] Heparin Anti-Xa Assay (03/15/2022 4:33 AM [...] Performing Organization Address City/[facility] Phon e Number [facility] - 200 [place], [place] [address] [place] [address] Laboratories-[address] (ABNORMAL) Thromboelastograph, Kaolin, Blood (03/15/2022 4:32 [...] City/State/ZIP Code Phon e Number [facility] - 200 [place], [place] [address] [facility] [place] [address] [facility] 200 [facility] (ABNORMAL) Thromboelastograph, Kaolin + Heparinase (03/15/2022 4:32 AM CDT) [facility] gist Method Time Signature R-Heparinase, 6.3 1.9 - 6.5 03/15/2022 METH TEG min 7:03 AM CDT K-Heparinase, 1.0 0.9 - 1.8 03/15/2022 METH TEG min 7:03 AM CDT Angle-Heparina 74.8 65.5 - 77.1 03/15/2022 METH se, TEG degrees 7:03 AM CDT MA-Heparinase, 80.7 (H) 58.2 - 76.2 03/15/2022 METH TEG mm 7:03 AM CDT Qh02-Yfdojkebt 0.0 0.0 - 4.7 % 03/15/2022 METH e, TEG 7:03 AM CDT Lj81-Unxuguhyr 0.0 0.0 - 15.0 % 03/15/2022 METH e, TEG 7:03 AM CDT Specimen Anatomical Collection Method Collection Time Receive d Time (Source) Location / / Volume Laterality Blood 03/15/2022 4:32 AM 4:35 CDT AM CDT Rajani Clark APRN, C.N.P., M.S.N. LAB BLOOD NON ADD -ON Performing Organization Address City/State/ZIP Code Phon e Number [facility] - 200 [place], [place] [address] [facility] [place] [address] [facility] 200 [facility] (ABNORMAL) CBC without Differential (03/14/2022 7:58 PM CDT) [facility] gist Method Time Signature Hemoglobin 7.9 [...] City/State/ZIP Code Phon e Number [facility] - 200 [place], [place] [address] [facility] [place] [address] [facility] 200 [facility] Transfuse Red Blood Cells : (03/14/2022 [...] City/State/ZIP Code Phon e Number [facility] - [address] [place], [place] [address] [facility] [place] [address] [facility] [address] Heparin Anti-Xa [...] City/State/ZIP Code Phon e Number [facility] - [address] [place] [address] [facility] [place] [address] [facility] [address] (ABNORMAL) Thromboelastograph, Kaolin + Heparinase (03/14/2022 9:00 AM CDT) [facility] gist Method Time Signature R-Heparinase, 4.3 1.9 - 6.5 03/14/2022 METH TEG min 10:28 AM CDT K-Heparinase, 1.1 0.9 - 1.8 03/14/2022 METH TEG min 10:28 AM CDT Angle-Heparina 74.6 65.5 - 77.1 03/14/2022 METH se, TEG degrees 10:28 AM CDT MA-Heparinase, 79.2 (H) 58.2 - 76.2 03/14/2022 METH TEG mm 10:28 AM CDT Gi19-[place] 0.0 0.0 - 4.7 % 03/14/2022 METH e, TEG 10:28 AM CDT Hb16-Yhtdfbxeq 0.0 0.0 - 15.0 % 03/14/2022 METH e, TEG 10:28 AM CDT Specimen Anatomical Collection Method Collection Time Receive d Time (Source) Location / / Volume Laterality Blood 03/14/2022 9:00 AM 9:03 CDT AM CDT Marjorie Ardon LAB BLOOD NON ADD-ON Performing Organization Address City/State/[facility] Code Phon e Number [facility] - [address] [place], [place] [address] [facility] [place] [address] [facility] 200 [facility] Heparin Anti-Xa Assay (03/14/2022 6:13 AM [...] Performing Organization Address City/[facility] Code Phon e Number [facility] - [address] [place], [place] [address] [facility] [place] [address] [address] (ABNORMAL) CBC without Differential (03/14/2022 6:13 [...] City/State/ZIP Code Phon e Number [facility] - [address] [place], [place] [address] [facility] [place] [address] [facility] [address] (ABNORMAL) Thromboelastograph, Kaolin + Heparinase (03/14/2022 6:11 AM CDT) [facility] Method Time Signature R-Heparinase, 4.2 1.9 - 6.5 03/14/2022 METH TEG min 8:17 AM CDT K-Heparinase, 1.1 0.9 - 1.8 03/14/2022 METH TEG min 8:17 AM CDT Angle-Heparina 75.1 65.5 - 77.1 03/14/2022 METH se, TEG degrees 8:17 AM CDT MA-Heparinase, 76.7 (H) 58.2 - 76.2 03/14/2022 METH TEG mm 8:17 AM CDT Vq82-Kxhcmuspn 0.0 0.0 - 4.7 % 03/14/2022 METH e, TEG 8:17 AM CDT Th04-Rtebjbmvp CANCELED % 03/14/2022 METH e, TEG 8:17 [...] Performing Organization Address City/[facility] Phon e Number [facility] - 200 [place] [address] [facility] METH [address] (ABNORMAL) pH (03/13/2022 5:00 PM CDT) P athologist Signature pH 7.28 (L) 7.35 - 7.45 03/13/2022 [facility] pH 5:13 PM CDT Specimen Anatomical Collection Method Collection Time Receive d Time (Source) Location / / Volume Laterality Blood 03/13/2022 5:00 PM 5:08 CDT PM CDT Leena Trujillo M.D. LAB HISTORICAL OR DERS Performing Organization Address City/[facility] Code Phon e Number [facility] - 200 [place] [address] [facility] STMA [place] [phone] (ABNORMAL) Phosphorus Inorganic (03/13/2022 5:00 PM CDT) P athologist Signature Phosphorus 6.2 (H) 2.5 - 4.5 03/13/2022 DTL (Inorganic), S mg/dL 6:13 PM CDT Specimen Anatomical Collection Method Collection Time Receive d Time (Source) Location / / Volume Laterality Blood (Blood, 03/13/2022 5:00 PM 03/13/20 22 5:35 Venous) CDT PM CDT Leena Trujillo M.D. LAB BLOOD ADD-ON Performing Organization Address City/[facility]/ZIP [facility] Phon e Number [facility] - 200 [place] [address] 05 [facility] DTL [place] [phone] (ABNORMAL) Magnesium (03/13/2022 5:00 PM CDT) [...] City/State/ZIP Code Phon e Number [facility] - [address] [place] [address] [facility] [place] [address] Laboratories-[address] (ABNORMAL) CBC without Differential (03/13/2022 5:00 [...] M.D. LAB BLOOD ADD-ON Performing Organization Address City/[facility] Phon e Number [facility] - [address] Calcium, Ionized (03/13/2022 5:00 PM CDT) P athologist Signature Calcium, 5.23 4.65 - 5.30 03/13/2022 [facility] Ionized, B mg/dL 5:13 PM CDT Specimen Anatomical Collection Method Collection Time Receive d Time (Source) Location / / Volume Laterality Blood (Blood, 03/13/2022 5:00 PM 03/13/20 5:08 Venous) CDT PM CDT Leena Trujillo M.D. LAB BLOOD NON ADD -ON Performing Organization Address [facility] Code Phon e Number [facility] - [address] [place] [address] Laboratories-[address] (ABNORMAL) Basic Metabolic Panel (03/13/2022 5:00 [...] M.D. LAB BLOOD ADD-ON Performing Organization Address City/[facility] Phon e Number [facility] - 200 [place], [place] [address] [facility] [place] [address] [facility] 200 [facility] (ABNORMAL) Thromboelastograph, Kaolin, Blood (03/13/2022 4:57 [...] City/State/ZIP Code Phon e Number [facility] - 200 [place], [place] [address] [facility] [place] [address] [facility] [address] DX Chest 1 [...] PM 3:10 CDT PM CDT Cristian Ingram REGISTRATION SCHEDULING SPECIALIST, ENGRAVER JEWELRY LAB BLOOD NON ADD-ON Performing Organization Address City/State/ZIP Code Phon e Number [facility] - [address] [place] [address] 05 [place] [address] [facility] [address] (ABNORMAL) Lactate, B (03/13/2022 [...] City/State/ZIP Code Phon e Number [facility] - [address] [place], [place] [address] 05 [place] [address] [facility] [address] (ABNORMAL) Glucose, Whole Blood [...] City/State/ZIP Code Phon e Number [facility] - [address] [place], [place] [address] [facility] [place] [address] [place] [address] Potassium, Blood (03/13/2022 3:10 PM [...] Performing Organization Address City/[facility]/ZIP Code Phon e Number [facility] - 200 [place] [phone] [facility] 200 [facility] Sodium, B (03/13/2022 3:10 PM CDT) athologist Signature Sodium, B 136 135 - 145 03/13/2022 3:12 [facility] mmol/L PM CDT Specimen Anatomical Collection Method Collection Time Receive d Time (Source) Location / / Volume Laterality Blood (Blood, 03/13/2022 3:10 PM 03/13/20 22 3:10 Arterial Line) CDT PM CDT Aleyda Giron M.D. LAB BLOOD NON ADD-ON Performing Organization Address City/[facility]/ZIP Code Phon e Number [facility] - 200 [place], [place] [address] 05 [place] [address] [facility] 200 [facility] Calcium, Ionized (03/13/2022 3:10 PM CDT) athologist [...] City/State/ZIP Code Phon e Number [facility] - 200 [place], [place] [address] [place] [address] Laboratories-[address] (ABNORMAL) Blood Gas with Coox, Arterial [...] City/State/ZIP Code Phon e Number [facility] - [address] Leukemia/Lymphoma Immunophenotyping by Flow Cytometry, Tissue (03/13/2022 2:41 PM CDT) Component Value Ref Test Analysis Performed At Patholo gist Range Method Time Signature LLPT Result Performed 03/14/2022 DTL 3:31 PM CDT Final These results are considered preliminary and require complete integration 03/14/2022 DTL Diagnosis: with the current pathology c ase [id number] for final interpretation. ??The 3:31 PM CDT result should NOT be interpreted in isolation for the purp oses of diagnosis or clinical management. Spleen, specimen for flow cytometric analysis ([id number]): No monotypic B-cell population, phenotypically abnorma l [...] reagent. Its performance characteristics were determined by [facility] in a manner consistent with CLIA [...] City/State/ZIP Code Phon e Number [facility] - 200 [place], [place] [address] [place] [address] [facility] 200 [facility] Patient Status (03/13/2022 2:13 PM CDT) P athologist Signature Temperature 36.7 37.0 deg C 03/13/2022 [facility] 2:13 PM CDT Specimen Anatomical Collection Method Collection Time Receive d Time (Source) Location / / Volume Laterality Blood 03/13/2022 2:13 PM 2:13 CDT PM CDT Memo Reyes REGISTRATION SCHEDULING SPECIALIST, ENGRAVER JEWELRY, MNA LAB BLOOD NON ADD-ON Performing Organization Address City/State/ZIP Code Phon e Number [facility] - 200 [place], [place] [address] [facility] [place] [address] [facility] [address] [facility] (ABNORMAL) CBC with Differential, Blood (03/13/2022 2:13 PM CDT) [facility] Method Time Signature Hemoglobin 7.4 (L) 11.6 [...] M.D. LAB BLOOD ADD-ON Performing Organization Address City/[facility]/ZIP Code Phon e Number [facility] - [address] [place], [place] [address] 05 [place] [address] [facility] [address] [facility] (ABNORMAL) Glucose, Whole Blood (03/13/2022 2:13 PM CDT) P athologist Signature Glucose 243 (H) 70 - 140 03/13/2022 [facility] mg/dL 2:16 PM CDT Specimen Anatomical Collection Method Collection Time Receive d Time (Source) Location / / Volume Laterality Blood (Blood, 03/13/2022 2:13 PM 03/13/20 22 2:13 Arterial Line) CDT PM CDT Dena Coon M.D. LAB BLOOD TROPONIN Performing Organization Address City/[facility]/ZIP Code Phon e Number [facility] - [address] [place], [place] [address] 05 [place] [address] [facility] [address] [facility] Potassium, Blood (03/13/2022 2:13 PM CDT) P [...] City/State/ZIP Code Phon e Number [facility] - [address] [place], [place] [address] [facility] [place] [address] [facility] [address] Sodium, B (03/13/2022 2:13 [...] City/State/[facility] Phon e Number [facility] - 200 [place], [place] [address] [place] [address] [address] (ABNORMAL) Calcium, Ionized (03/13/2022 2:13 PM [...] Performing Organization Address City/[facility] Phon e Number [facility] - [address] [place], [place] [address] [place] [address] Laboratories-[address] (ABNORMAL) Blood Gas with Coox, Arterial [...] City/State/ZIP Code Phon e Number [facility] - [address] [place] [address] 05 [place] [address] [facility] 200 [facility] (ABNORMAL) Thromboelastograph, Kaolin, Blood (03/13/2022 2:12 PM CDT) [facility] Method Time Signature R, Kaolin, TEG 4.9 [...] City/State/ZIP Code Phon e Number [facility] - 200 [place], [place] [address] [place] [address] [facility] 200 [facility] Surgical Pathology, Frozen Lab (03/13/2022 1:46 PM CDT) Component Value Ref Test Analysis Performed Pathologis t Range Method Time At Signature 03/19/2022 [facility] 4:43 PM CDT Report Snoia Boone M.D. 03/19/2022 [facility] electronically 4:43 PM signed by CDT [...] homogenous. ??Hilar lymph nodes are not identified. ??Staging Technician tissue submitted for permanent sections. ??Grossed by BRIAN Junior (Ann Marie)([facility]) . Block Summary A Spleen 03/19/2022 [facility] A1 Possible hemangioma - 1 4:43 PM A2 Possible hemangioma - 2 CDT A3 Staging Technician infarcts - 1 A4 Staging Technician infarcts - 2 A5 Staging Technician infarcts - 3 A6 Additional sections of spleen - 1 A7 Additional sections of spleen - 2 A8 Additional sections of spleen - 3 A9 Additional sections of spleen - 4 A10 Additional sections of spleen - 5 Disclaimer This test was developed using an analyte specific reag ent. 03/19/2022 [facility] Its performance characteristics were determined by Owen 4:43 PM [facility] in a manner consistent with CLIA requirements. [...] LAB SURG PATH ORDERABLES Performing Organization Address City/State/[facility] Code Phon e Number [facility] - [address] [place], [place] [address] [place] [address] [facility] [address] Transfuse Red [...] LAB BLOOD NON ADD-ON Performing Organization Address City/State/[facility] Code Phon e Number [facility] - [address] [place] [address] 05 [place] [address] [facility] 200 [facility] (ABNORMAL) Blood Gas with Coox, Arterial [...] Performing Organization Address City/[facility] Phon e Number [facility] - [id number] [place] [address] Patient Status (03/13/2022 12:20 PM CDT) P athologist Signature Temperature 36.6 37.0 deg C 03/13/2022 [facility] 12:20 PM CDT FIO2 0.51 0.21=AIR 03/13/2022 [facility] 12:20 PM CDT Specimen Anatomical Collection Method Collection Time Receive d Time (Source) Location / / Volume Laterality Blood 03/13/2022 12:20 03/13/2022 PM CDT 12:20 PM CDT Memo Reyes REGISTRATION SCHEDULING SPECIALIST, ENGRAVER JEWELRY, MNA LAB BLOOD NON ADD-ON Performing Organization Address City/[facility] Phon e Number [facility] - [address] [place] [address] [phone] [address] (ABNORMAL) Blood Gas with Coox, Arterial [...] Performing Organization Address City/[facility] Code Phon e Number [address] Transfuse Platelets : (03/13/2022 12:04 PM CDT) Dena Coon M.D. BLOOD TRANSFUSION ORDERABLES Patient Status (03/13/2022 11:13 AM CDT) athologist Signature FIO2 0.60 0.21=AIR 03/13/2022 11:14 [facility] AM CDT Specimen Anatomical Collection Method Collection Time Receive d Time (Source) Location / / Volume Laterality Blood 03/13/2022 11:13 03/13/2022 AM CDT 11:13 AM CDT Memo Reyes REGISTRATION SCHEDULING SPECIALIST, ENGRAVER JEWELRY, MNA LAB BLOOD NON ADD-ON Performing Organization Address City/[facility] Phon e Number [address] Glucose, Whole Blood (03/13/2022 11:13 AM [...] City/State/ZIP Code Phon e Number [facility] - [address] [place], [place] [address] [facility] [place] [address] [facility] [address] [facility] Potassium, Blood (03/13/2022 11:13 AM CDT) athologist [...] City/State/ZIP Code Phon e Number [facility] - [address] [place], [place] [address] [facility] [place] [address] [facility] [address] [facility] Sodium, B (03/13/2022 11:13 AM CDT) athologist [...] City/State/ZIP Code Phon e Number [facility] - [address] [place], [place] [address] [facility] [place] [address] [facility] [address] Calcium, Ionized [...] City/State/ZIP Code Phon e Number [facility] - 200 [place], [place] [address] [facility] [place] [address] [facility] 200 [facility] (ABNORMAL) Blood Gas with Coox, Arterial [...] City/State/ZIP Code Phon e Number [facility] - [address] [place], [place] [address] [place] [address] [facility] [address] [facility] (ABNORMAL) Prothrombin Time (PT) (03/13/2022 11:12 AM [...] City/State/ZIP Code Phon e Number [facility] - [address] [address] [facility] [address] [facility] Fibrinogen (03/13/2022 11:12 AM CDT) P athologist Signature Fibrinogen, P 340 200 - 393 03/13/2022 [facility] mg/dL 11:25 AM CDT Specimen Anatomical Collection Method Collection Time Receive d Time (Source) Location / / Volume Laterality Blood (Blood, 03/13/2022 11:12 03/13/2022 Arterial Line) AM CDT 11:12 AM CDT Dena Coon M.D. LAB BLOOD ADD-ON Performing Organization Address City/State/ZIP Code Phon e Number [facility] - [address] [place], [place] [address] [facility] [place] [address] Laboratories-[place] [address] [facility] APTT (Activated Partial Thromboplastin Time) (03/13/2022 11:12 [...] City/State/ZIP Code Phon e Number [facility] - [address] [place], [place] [address] [place] [address] [facility] [address] Transfuse Red [...] Fri03/13/22 at 0645, For 1 dose, Pre-Op, Recessing Machine Operator, PreOp with sips acetaminophen tablet 1,000 mg [...] CDT 0.4 mg HYDROmorphone-0.9% NaCl 1 mg/mL SCREEN PRINTING MACHINE OPERATOR HELPER Rate/Dose Verify 03/15/2022 11:32 PM CDT (DILAUDID) Loading Dose: 0.4 mg, SCREEN PRINTING MACHINE OPERATOR HELPER Dose: 0.4 mg, Lockout: 10 Minutes, Continuous [...] 30 mg in 30 mL, Level 1: SCREEN PRINTING MACHINE OPERATOR HELPER dose: 0.2 mg, Lockout 10 minutes, Four Hour Limit: 4 mg, Level 2: SCREEN PRINTING MACHINE OPERATOR HELPER dose: 0.4 mg, Lockout: 10 minutes, Four Hour Limit: 8 mg, Level 3: SCREEN PRINTING MACHINE OPERATOR HELPER dose: 0.6 mg, Lockout: 10 minutes, Four Hour Limit: 12 mg, For relieved pain: decrease SCREEN PRINTING MACHINE OPERATOR HELPER to the next level and reassess in 2 hours if ALL of the following apply: Pain score is less than 4 or patient is at comfort goal AND patient is using 10 or less SCREEN PRINTING MACHINE OPERATOR HELPER doses per 4 hour period., For unrelieved pain: increase SCREEN PRINTING MACHINE OPERATOR HELPER to the next level if available and if ALL apply: Pain is >/= 4 AND > comfort goal AND respiratory rate is 10 breaths/min or greater AND RASS is -1, 0, +1, or +2 AND oxygen saturation is > 90% AND pt has been at current SCREEN PRINTING MACHINE OPERATOR HELPER level for 1 hr. New Syringe/Cartridge 03/14/2022 [...] Lopez R.N.)1107 (Given - Provider: Sherron Puente R.N.)3790 (Given - Provider: Sherron Puente R.N.)2236 (Given [...] Provider: Sherron Puente R.N.)2056 (Given - Provider: Cadnice Wing R.N.) 0839 (Given - Provider: Sherron [...] 1823 documented in this encounter Care Teams Cost Control Supervisor Relationship Specialty Start Date End Date Elsewhere, Pcp PCP - General 11/04/21 documented as of this encounter
--- OUTSIDE RECORDS SUMMARY | 2022-05-02 12:27 | XMS_ITS | Encounter Summary ---
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 Hemoglobin: 7.6 Hematocrit: 25.9 WBC: 23.94 ANC: 12.90 Platelets: 660 Please note: Are there additional labs reported on the outside report? No documented in 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 Care Teams Corporate Manager Relationship Specialty Start Date End Date Elsewhere, Pcp PCP - General 11/04/21 documented as of this encounter
--- OUTSIDE RECORDS SUMMARY | 2022-05-02 12:27 | XMS_ITS | Encounter Summary ---
:1970 Author Organization [facility] Address [address] [place] [address] Care Team Providers Name Role Phone Elsewhere, Pcp Primary Care Provider Unavailable Encounter Details Date Type Department Care Team Description 03/25/2022 Clinical Communication Division of Hema Rothman, Hepatobiliary and M.D. 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 - 03/25/2022 2:46 PM CDT Send an additional 8 tabs. No additional prescription fills without an appointment. Patient is 14 days out from surgery. Telephone Encounter - Jazmín Patton - 03/25/2022 1:13 PM CDT Patients called to ask for refill of the oxycodone medication. He advises she only has 2 or 3 left. documented in 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 Care Teams Act Tutor Relationship Specialty Start Date End Date Elsewhere, Pcp PCP - General 11/04/21 documented as of this encounter
--- OUTSIDE RECORDS SUMMARY | 2022-05-02 12:27 | XMS_ITS | Encounter Summary ---
:1970 Author Organization [facility] Address [address] [place] [address] Care Team Providers Name Role Phone Elsewhere, Pcp Primary Care Provider Unavailable Encounter Details Date Type Department Care Team Description 03/19/2022 Orders Only Division of Hepatobiliary Yoni, Gely ca A, and Pancreas Surgery in [address] [place] [phone] (Wo rk) Social History Tobacco Use Types [...] at Date Recorded Female 07/24/2021 11:03 AM GRAB HOOKER documented as of 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 Care Teams Sales Consultant Relationship Specialty Start Date End Date Elsewhere, Pcp PCP - General 11/04/21 documented as of this encounter
--- OUTSIDE RECORDS SUMMARY | 2022-05-02 12:27 | XMS_ITS | Encounter Summary ---
:1970 Author Organization [facility] Address [address] [place] [address] Care Team Providers Name Role Phone Elsewhere, Pcp Primary Care Provider Unavailable Reason for Visit Reason Comments Medication Questions Encounter Details Date Type Department Care Team Description 03/21/2022 Clinical Communication Division of David Govea Questions Hematology in [address] 200 [place] [phone] [phone] Social History Tobacco Use Types Packs/Day Years [...] at Date Recorded Female 07/24/2021 11:03 AM CONSULTING SOLUTION DIRECTOR documented as of this encounter Miscellaneous [...] on filedocumented in this encounter Care Teams Conversion Worker Relationship Specialty Start Date End Date Elsewhere, Pcp PCP - General 11/04/21 documented as of this encounter
--- OUTSIDE RECORDS SUMMARY | 2022-05-02 12:27 | XMS_ITS | Encounter Summary ---
:1970 Author Organization [facility] Address [address] [place] [address] Care Team Providers Name Role Phone Elsewhere, Pcp Primary Care Provider Unavailable Encounter Details Date Type Department Care Team Description 03/19/2022 Clinical Communication Division of Hema Rothman, Hepatobiliary and M.D. 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 Please call the pharmacy at [phone]. documented in 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 Care Teams Section Gang Relationship Specialty Start Date End Date Elsewhere, Pcp PCP - General 11/04/21 documented as of this encounter
--- OUTSIDE RECORDS SUMMARY | 2022-05-02 12:27 | XMS_ITS | Encounter Summary ---
:1970 Author Organization [facility] Address [address] [place] [address] Care Team Providers Name Role Phone Elsewhere, Pcp Primary Care Provider Unavailable Reason for Visit Reason Comments External Lab Entry Encounter Details Date Type Department Care Team Description 04/08/2022 Clinical Communication Division of Emilie Govea Lab Entry Hematology in [address] 200 [place] [phone] Social History Tobacco Use Types Packs/Day Years [...] Date Recorded Female 07/24/2021 11:03 AM ORACLE FINANCIALS DEVELOPER documented as of this encounter Miscellaneous [...] been scanned into the patient record via [employer], and the CBC results are as noted below. Hemoglobin: 7.6 Hematocrit: 26.0 WBC: 19.65 ANC: 9.80 Platelets: 858 Please note: Are there additional labs reported on the outside report? Yes documented in 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 Care Teams Production Department Supervisor Relationship Specialty Start Date End Date Elsewhere, Pcp PCP - General 11/04/21 documented as of this encounter
--- OUTSIDE RECORDS SUMMARY | 2022-05-02 12:27 | XMS_ITS | Encounter Summary ---
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 Hemoglobin: 7.4 Hematocrit: 25.4 WBC: 23.70 ANC: 10.90 Platelets: 660 Please note: Are there additional labs reported on the outside report? Yes documented in 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 Care Teams Artist Suspect Relationship Specialty Start Date End Date Elsewhere, Pcp PCP - General 11/04/21 documented as of this encounter
--- OUTSIDE RECORDS SUMMARY | 2022-05-02 12:27 | XMS_ITS | Encounter Summary ---
:1970 Author Organization [facility] Address [address] [place] [address] Care Team Providers Name Role Phone Elsewhere, Pcp Primary Care Provider Unavailable Reason for Visit Reason Comments Lab results and care plan Encounter Details Date Type Department Care Team Description 04/15/2022 Clinical Communication Division of Rickie Govea r esults and care Hematology in [facility] [address] [facility] [address] [place] [phone] [phone] Social History Tobacco Use Types Packs/Day Years [...] at Date Recorded 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 - 04/15/2022 3:55 PM CDT I called and spoke with Gian, and let him know Dr. Govea would like to start Jennifer on Hydrea at 2 tabs daily. This was called in to [facility] in [place] and he will pick them up later [...] been scanned into the patient record via [employer], and the CBC results are as noted below. Hemoglobin: 7.8 Hematocrit: 27.1 WBC: 43.22 ANC: 15.60 Platelets: 1061 Please note: Are there additional labs reported on the outside report? Yes Telephone Encounter - Linda Apple - 04/15/2022 1:26 PM CDT [facility] sending lab results drawn 04/15/2022 Fax has been sent to scanning Telephone Encounter - Claudia Mackay - 04/15/2022 1:01 PM CDT Name of caller: [facility] Rhea Roberson Reason for call: requests to discuss lab results from today that will be faxed for review Please also fax patient care updates to [phone] after return appointment with Dr. Govea on 04/17 Call back number is [phone]. Thank you, Claudia Hematology [facility] documented in 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 Care Teams Job Change Crew Member Relationship Specialty Start Date End Date Elsewhere, Pcp PCP - General 11/04/21 documented as of this encounter
--- OUTSIDE RECORDS SUMMARY | 2022-05-02 12:27 | XMS_ITS | Encounter Summary ---
:1970 Author Organization [facility] Address [address] [place] [address] Care Team Providers Name Role Phone Elsewhere, Pcp Primary Care Provider Unavailable Encounter Details Date Type Department Care Team Description 03/20/2022 Orders Only Division of Hepatobiliary and Gr Hema castillo M.D. 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
--- OUTSIDE RECORDS SUMMARY | 2022-05-02 12:28 | XMS_ITS | Encounter Summary ---
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
--- OUTSIDE RECORDS SUMMARY | 2022-05-02 12:28 | XMS_ITS | Encounter Summary ---
:1970 Author Organization [facility] Address [address] [place] [address] Care Team Providers Name Role Phone Elsewhere, Pcp Primary Care Provider Unavailable Encounter Details Date Type Department Care Team Description 03/13/2022 Surgery RST ROMB MAIN OR Hema Rothman, LAPAROSCOPIC HAND [address] [facility] [[email or web address] M.DZahraa ASSISTED SPLENECTOMY. 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 Primary Team: [...] follow up in 1 week with local powdered sugar supervisor for blood work (CBC). Please have these results faxed to [phone] attn: Dr. Rothman for review, or send [...] splenectomy, 03/13/2022. The patient was admitted to [facility]. The patient was taken to the operating [...] sent through Care Everywhere. Acetaminophen (By mouth) (Welsh)Cyclobenzaprine (By mouth) (Welsh)Enoxaparin (By injection) (Welsh)Oxycodone, Rapid Release (By mouth) (Welsh)documented in this encounter Medications at Time of [...] We will arrange outpatient follow-up with primary powdered sugar supervisor Dr. Govea when she returns for her 4week surgical follow-up Plan discussed with Hematology digital media sales consultant Dr. Kanu Talamantes who is in agreement with the plan. We plan to sign off. Please page [phone] 7a-5p and [phone] 5p-7a with any additional questions. Lois Alfredo, [...] Coronavirus 2, Molecular Detection, PCR, Varies Asymptomatic [[id number]] Collected: 03/12/22 0937 Lab Status: Final result [...] ----ADDITIONAL INFORMATION---- This RT-PCR test using the R + B Group SARS-CoV-2 Assay ( [employer]) performed on the R + B Group Two Module System has received Emergency Use Authorization (EUA) by the U.S. Food and Drug Administration, and is modified from the analysis engineer's instructions with a bridging study. Performance characteristics were verified by [facility] in a manner consistent with CLIA requirements. Visit the CDC website: https://www.cdc.gov/coronavirus/ for the most recent guidelines on Coronavirus testing. Fact Sheet for Healthcare Providers: https://www.fda.gov/media/095214/download Fact Sheet for Patients: https://www.fda.gov/media/980015/download Physical Exam Physical Exam General: Alert and [...] today. Was told to follow up with powdered sugar supervisor for weekly CBC, splenectomy vaccines in 2 [...] Patient is being cared for by the [facility] team. Edin Krueger M.D. PGY1 [phone] NT Kira Lockhart M.D. - 2022 9:51 [...] We will arrange outpatient follow-up with primary powdered sugar supervisor Dr. Govea when she returns for her 4week surgical follow-up. Plan discussed with Hematology digital media sales consultant Dr. Ponce Miller who is in agreement with the plan. We will continue to follow. Please page [phone] 7a-5p and [phone] 5p-7a with any questions. Kira Lockhart M.D. [...] Coronavirus 2, Molecular Detection, PCR, Varies Asymptomatic [[id number]] Collected: 03/12/22 0937 Lab Status: Final result [...] ----ADDITIONAL INFORMATION---- This RT-PCR test using the R + B Group SARS-CoV-2 Assay ( [employer].) performed on the R + B Group Two Module System has received Emergency Use Authorization (EUA) by the U.S. Food and Drug Administration, and is modified from the analysis engineer's instructions with a bridging study. Performance characteristics were verified by [facility] in a manner consistent with CLIA requirements. Visit the CDC website: https://www.cdc.gov/coronavirus/ for the most recent guidelines on Coronavirus testing. Fact Sheet for Healthcare Providers: https://www.fda.gov/media/886627/download Fact Sheet for Patients: https://www.fda.gov/media/327250/download Physical Exam Physical Exam Assessment Assessment and [...] Patient is being cared for by the [facility] team. Edin Krueger [phone] Tesfaye Ibrahim M.B.B.S. - 03/16/2022 1:42 PM [...] for Hgb < 7.0 Plan: - Discontinue DEPALLETIZER OPERATOR - Regular diet - Continue trending Hb - Increase Lovenox dosing Dispo: Discharge in a few days. Follow up plan would be to see her back in [address] pancreas protocol. Patient was seen and examined with Dr. Roy. Please don't hesitate to contact [facility] service with any questions or concerns. Evy [...] is very hungry. Pain well controlled on DEPALLETIZER OPERATOR pump. Requiring 1L/min oxygen via nasal cannula. [...] We will arrange outpatient follow-up with primary powdered sugar supervisor Dr. Govea. Plan discussed with Hematology digital media sales consultant Dr. Ponce Miller and Hematology fellow Dr. Annamaria De Luna. We will continue to follow. Please page [phone] 7a-5p and [phone] 5p-7a with any questions. Kira Lockhart M.D. [...] prn (58 yest, none since [place]); HM DEPALLETIZER OPERATOR (11.6 yest, 4 since [place]) Good UOP, [...] for anticoagulation upon discharge with her primary Tank Wagon Driver, Dr. Govea. Plan discussed with Hematology digital media sales consultant Dr. Ponce Miller and Hematology fellow Dr. Annamaria De Luna. We will continue to follow. Please page [phone] 7a-5p and [phone] 5p-7a with any questions. Lois Alfredo, MS-4 [...] 51-year-old female with primary myelofibrosis (CALR and [id number]) failed several treatment in the past and [...] overnight. Pain is appropriately controlled with Dilaudid DEPALLETIZER OPERATOR and intermittent p.o. oxycodone. No nausea and [...] and afebrile. Pain is appropriately controlled on DEPALLETIZER OPERATOR and intermittent oxycodone. On exam, abdomen is [...] chest physio Please don't hesitate to contact [facility] service with any questions or concerns. Electronically [...] chest physio Please don't hesitate to contact [facility] service with any questions or concerns. Electronically [...] and she has preemptively been using the DEPALLETIZER OPERATOR for mobilization. She denies any nausea, vomiting, somnolence or additional symptoms. She had a lot of trouble with pain control yesterday evening and thePCA was starting which provided the most improvement. Yesterday's requirements: - Tylenol 100 mg - Morphine 60 mg PO - Oxycodone 30 mg PO - Hydromorphone DEPALLETIZER OPERATOR 3.2 mg total Current Medications: - Tylenol 1000 mg q6h - Hydromorphone DEPALLETIZER OPERATOR 0.4/10/8 - Morphine 60 mg BID + [...] Dobbins R.N.) Pain Interventions: Medication (See MAR) (DEPALLETIZER OPERATOR available) (03/14/222352 : Prakash Murry, R.N.) Response [...] 24-48 hr with adequate control on hydromorphone DEPALLETIZER OPERATOR would calculate total dose needed over 24 [...] - Lidocaine patch PRN - Voltaren gel, dezldryh-fvvenmplsyjtu-vbziiqnor-lipoderm gel, bengay PRN -Consider integrative medicine techniques [...] Q 1-2 hours PRN or initiation of DEPALLETIZER OPERATOR. - If above ineffective transition to Hydromorphone DEPALLETIZER OPERATOR level 1 and DC IV push. - [...] of discontinuation: first remove ketamine followed by DEPALLETIZER OPERATOR then IV. Start at whichever step based on requirements from previous section. If ketamine started and reached max dose (0.3 mg/kg/min ) can halve it for a couple hours to ensure pain managed effectively then discontinue completely. The only risk with discontinuation is increasedpain and this can be managed with an increase in oral regiment if felt necessary by primary service. 2. If DEPALLETIZER OPERATOR utilized, when discontinuing assess current oral regiment to identify if increased oral dosage of medications is needed to help mitigate the IV requirements. When discontinuing the DEPALLETIZER OPERATOR, should continue to have IV PRN rescue available. 3. If requiring a large amount of IV medications (DEPALLETIZER OPERATOR or rescue) would recommend optimizing oral oxycodone/hydromorphone [...] were discussed with Dr. Woods, Pain Medicine digital media sales consultant. We will sign off. Please call the relevantservice pager to clarify further or raise concerns (Zoroastrianism:[phone] or Amagon: [phone]). Leena Sandhu M.D. Anesthesiology and Perioperative Medicine CA-1/PGY-2 Pager #[phone] Associated attestation - Sameer Woods M.D. - [...] cm). Subsequent bone marrow examination by outside powdered sugar supervisor, Dr. Hu, revealed CALR primary myelofibrosis. 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 Annamaria De Luna. Please page [phone] 7a-5p and [phone] 5p-7a with any questions. Lois Alfredo, MS-4 [...] discharge. Will arrange outpatient follow-up with primary Tank Wagon Driver Dr. Govea. Plan discussed with Hematology digital media sales consultant Dr. Ponce Miller and Hematology fellow Dr. Annamaria De Luna. We will continue to follow. Please page [phone] 7a-5p and [phone] 5p-7a with any questions. Lois Juni, MS-4 Hematology Consult Service documented in this encounter OR Notes Op Note - Hema Rothman M.D. 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 [...] splenectomy, 03/13/2022. The patient was admitted to [facility]. The patient was taken to the operating [...] Name Type Priority Associated Diagnoses Order S [facility] Surgery Outpatient Referral Routine Expec latonya: [...] IV CONTRAST COMPARISON: ??[facility], including most recent CT [...] M.S. LAB BLOOD ADD-ON Performing Organization Address City/[facility] Phon e Number [facility] - [address] [place] [address] Bilirubin, Direct (04/19/2022 9:47 AM CDT) P athologist Signature Bilirubin, <0.2 0.0 - 0.3 04/19/2022 DT Direct, S mg/dL 11:02 AM CDT Specimen Anatomical Collection Method Collection Time Receive d Time (Source) Location / / Volume Laterality Blood (Blood, 04/19/2022 9:47 AM 04/19/20 Venous) CDT 10:32 AM CDT Aleyda Mcginnis P.A.-C., M.S. LAB BLOOD ADD-ON Performing Organization Address City/[facility] Phon e Number [facility] - [address] [place] [address] [place] [address] (ABNORMAL) Prothrombin Time (PT) (04/19/2022 9:47 AM [...] M.S. LAB BLOOD ADD-ON Performing Organization Address City/[facility] Code Phon e Number [facility] - [address] [place], [place] [address] [address] [facility] [place] [address] Laboratories-[facility] 200 [facility] Basic Metabolic Panel (03/18/2022 6:27 AM [...] City/State/ZIP Code Phon e Number [facility] - [address] [place] [address] Laboratories-[address] (ABNORMAL) CBC without Differential (03/18/2022 6:27 [...] Organization Address City/State/ZIP Code Phon e Number [facility] - [address] [place] [address] [place] [address] Laboratories-[address] (ABNORMAL) Basic Metabolic Panel (2022 3:43 [...] City/State/ZIP Code Phon e Number [facility] - [address] [place] [address] [address] [facility] [place] [address] Laboratories-[facility] 200 [facility] (ABNORMAL) CBC without Differential (2022 3:43 AM CDT) [facility] gist Method Time Signature Hemoglobin 7.3 [...] - 9.6 2022 [facility] x10(9)/L 4:55 AM CDT Comment: Corrected for normoblasts. Specimen Anatomical Collection Method Collection Time Receive d Time (Source) Location / / Volume Laterality Blood (Blood, 2022 3:43 AM 03/17/20 3:57 Venous) CDT AM CDT Nazario Bailey APRN, C.N.P., D.N.P., M.S.N. LAB BLOOD AD D-ON Performing Organization Address City/State/ZIP Code Phon e Number [facility] - [address] [place], [place] [address] [facility] [place] [address] Laboratories-[facility] [address] [place] [address] Laboratories-[facility] [address] (ABNORMAL) Hepatic Function Panel (03/16/2022 1:22 PM CDT) [facility] Method Time Signature Bilirubin, Total, S [...] LAB BLOOD AD D-ON Performing Organization Address City/[facility] Phon e Number [facility] - [address] [place], [place] [address] [facility] [place] [address] Laboratories-[facility] 200 [facility] (ABNORMAL) CBC without Differential (03/16/2022 1:22 PM CDT) [facility] Method Time Signature Hemoglobin 7.6 (L) [...] LAB BLOOD AD D-ON Performing Organization Address City/[facility]/ZIP Code Phon e Number [facility] - [address] [place], [place] [address] [facility] [place] [address] Laboratories-[facility] 200 [facility] Transfuse Red Blood Cells : (03/16/2022 1:04 PM CDT) Nazario Bailey APRN, C.N.P., Haydee.N.P., M.S.N. BLOOD TRANSF USION ORDERABLES Transfuse Red Blood Cells : , 1 Units (03/16/2022 1:04 PM CDT) Nazario Bailey APRN, C.N.P., Haydee.N.P., M.S.N. BLOOD TRANSF USION ORDERABLES (ABNORMAL) CBC without Differential (03/16/2022 9:04 AM CDT) [facility] Method Time Signature Hemoglobin 7.1 (L) [...] City/State/ZIP Code Phon e Number [facility] - [address] [place] [address] [address] [facility] [place] [address] Laboratories-[address] Type and Screen (with reflex Antibody ID) (03/16/2022 7:26 AM CDT) [facility] Method Time Signature ABORh A Pos [...] BA NK TEST ORDERABLES Performing Organization Address [facility] Phon e Number [facility] - [address] [place] [address] [address] [facility] [place] [address] Laboratories-[address] (ABNORMAL) Thromboelastograph, Kaolin + Heparinase (03/16/2022 7:24 AM CDT) [facility] Method Time Signature R-Heparinase, 5.2 1.9 - 6.5 03/16/2022 METH TEG min 9:37 AM CDT K-Heparinase, 0.8 (L) 0.9 - 1.8 03/16/2022 METH TEG min 9:37 AM CDT Angle-Heparina 79.7 (H) 65.5 - 77.1 03/16/2022 METH se, TEG degrees 9:37 AM CDT MA-Heparinase, >90.0 (H) 58.2 - 76.2 03/16/2022 METH TEG mm 9:37 AM CDT Mb90-Xgpacnrno 0.0 0.0 - 4.7 % 03/16/2022 METH e, TEG 9:37 AM CDT Vj07-Liyagohho 0.0 0.0 - 15.0 03/16/2022 METH e, TEG % 9:37 AM CDT Specimen Anatomical Collection Method Collection Time Receive d Time (Source) Location / / Volume Laterality Blood (Blood, 03/16/2022 7:24 AM 03/16/20 22 7:29 Venous) CDT AM CDT Nazario Bailey APRN, C.N.P., D.N.P., M.S.N. LAB BLOOD NO N ADD-ON Performing Organization Address [facility] Phon e Number [address] [facility] [place] [address] [facility]-[address] (ABNORMAL) Troponin T, 2H/6H, 5th Gen (03/16/2022 2:54 AM CDT) [facility] gist Method Time Signature Troponin T, [...] 22 3:17 Venous) CDT AM CDT Narrative [facility] - [facility] - 03/16/2022 3:40 AM CDT Specimen Information: Specimen ID: [id number] Specimen Type: Blood Specimen Collection Start Date: ??2:54 AM Specimen Received Date: 03/16/2022 ??3:17 AM Specimen ID: [id number] Specimen Type: Blood Mason Ardon LAB BLOOD TROPONIN Performing Organization Address City/[facility] Code Phon e Number [address] [place] [address] Phosphorus Inorganic (03/16/2022 2:54 AM CDT) P athologist Signature Phosphorus 3.0 2.5 - 4.5 03/16/2022 DTL (Inorganic), S mg/dL 3:40 AM CDT Specimen Anatomical Collection Method Collection Time Receive d Time (Source) Location / / Volume Laterality Blood (Blood, 03/16/2022 2:54 AM 03/16/20 3:16 Venous) CDT AM CDT Aleyda Mcginnis P.A.-C., M.S. LAB BLOOD ADD-ON Performing Organization Address City/[facility] Phon e Number [facility] - [id number] [place] [address] (ABNORMAL) Magnesium (03/16/2022 2:54 AM CDT) P athologist Signature Magnesium, S 2.7 (H) 1.7 - 2.3 03/16/2022 DTL mg/dL 3:40 AM CDT Specimen Anatomical Collection Method Collection Time Receive d Time (Source) Location / / Volume Laterality Blood (Blood, 03/16/2022 2:54 AM 03/16/20 3:16 Venous) CDT AM CDT Aleyda Mcginnis P.A.-C., M.S. LAB BLOOD ADD-ON Performing Organization Address City/State/[facility] Phon e Number [facility] - [address] (ABNORMAL) CBC without Differential (03/16/2022 2:54 [...] City/State/ZIP Code Phon e Number [facility] - [address] [place], [place] [address] [facility] [place] [address] Laboratories-[facility] [address] [place] [address] [facility] [address] [facility] (ABNORMAL) Basic Metabolic Panel (03/16/2022 2:54 AM [...] City/State/ZIP Code Phon e Number [facility] - [address] [place] [address] [address] [facility] [place] [address] Laboratories-[facility] [address] DX Chest [...] (ABNORMAL) SPSMA Result (03/15/2022 11:42 PM CDT) [facility] Method Time Signature Neutrophilic Segs 85 [...] City/State/ZIP Code Phon e Number [facility] - [address] [place], [place] [address] [place] [address] Laboratories-[facility] [address] (ABNORMAL) CBC with Differential, Blood (03/15/2022 11:42 PM CDT) [facility] Method Time Signature Hemoglobin 6.8 (L) [...] City/State/ZIP Code Phon e Number [facility] - [address] [place], [place] [address] [address] [facility] [place] [address] Laboratories-[address] [address] Laboratories-[address] (ABNORMAL) Troponin T, Baseline, 5th gen [...] City/State/ZIP Code Phon e Number [facility] - [address] [facility] [place] [address] [address] [facility] [place] [address] Laboratories-[facility] 200 [facility] ECG 12 Lead (03/15/2022 11:26 PM CDT) P athologist Signature Ventricular Rate 82 BPM MUSE ECG/Min OK Interval 150 ms MUSE QRSD Interval 84 ms MUSE QT Interval 374 ms MUSE QTC Interval 436 ms MUSE P [place] 15 degrees MUSE R [place] 55 degrees MUSE T Wave [place] 62 degrees MUSE Specimen Anatomical Collection Method [...] M.S. LAB BLOOD ADD-ON Performing Organization Address City/State/[facility] Code Phon e Number [facility] - [address] [place] [address] [address] [facility] [place] [address] Laboratories-[facility] 200 [facility] (ABNORMAL) CBC without Differential (03/15/2022 8:19 AM CDT) [facility] gist Method Time Signature Hemoglobin 7.3 [...] M.D. LAB BLOOD ADD-ON Performing Organization Address City/[facility] Phon e Number [facility] - [address] (ABNORMAL) NT-Pro B-Type Natriuretic Peptide (BNP) [...] M.S.N. LAB BLOOD ADD-ON Performing Organization Address City/[facility] Phon e Number [facility] - [id number] [place] [address] (ABNORMAL) Basic Metabolic Panel (03/15/2022 4:33 AM [...] City/State/ZIP Code Phon e Number [facility] - [address] [place] [address] [address] [facility] [place] [address] Laboratories-[facility] 200 [facility] (ABNORMAL) CBC without Differential (03/15/2022 4:33 AM CDT) [facility] gist Method Time Signature Hemoglobin 7.2 [...] M.S.N. LAB BLOOD ADD-ON Performing Organization Address City/[facility] Phon e Number [facility] - [address] [place], [place] [address] [place] [address] [facility] 200 [facility] Heparin Anti-Xa Assay (03/15/2022 4:33 AM [...] LAB BLOOD NON ADD-ON Performing Organization Address City/[facility]/ZIP Code Phon e Number [facility] - [address] [place], [place] [address] [facility] [place] [address] Laboratories-[address] (ABNORMAL) Thromboelastograph, Kaolin, Blood (03/15/2022 4:32 AM CDT) [facility] Method Time Signature R, Kaolin, TEG [...] City/State/ZIP Code Phon e Number [facility] - [address] [place], [place] [address] [facility] [place] [address] Laboratories-[address] (ABNORMAL) Thromboelastograph, Kaolin + Heparinase (03/15/2022 4:32 AM CDT) [facility] Method Time Signature R-Heparinase, 6.3 1.9 - 6.5 03/15/2022 METH TEG min 7:03 AM CDT K-Heparinase, 1.0 0.9 - 1.8 03/15/2022 METH TEG min 7:03 AM CDT Angle-Heparina 74.8 65.5 - 77.1 03/15/2022 METH se, TEG degrees 7:03 AM CDT MA-Heparinase, 80.7 (H) 58.2 - 76.2 03/15/2022 METH TEG mm 7:03 AM CDT Xe42-Avbgoddum 0.0 0.0 - 4.7 % 03/15/2022 METH e, TEG 7:03 AM CDT Al06-Wpedrvots 0.0 0.0 - 15.0 % 03/15/2022 METH e, TEG 7:03 AM CDT Specimen Anatomical Collection Method Collection Time Receive d Time (Source) Location / / Volume Laterality Blood 03/15/2022 4:32 AM 4:35 CDT AM CDT Rajani Clark APRN C.N.P., M.S.N. LAB BLOOD NON ADD -ON Performing Organization Address City/State/ZIP Code Phon e Number [facility] - [address] [place] [address] [address] [facility] [place] [address] Laboratories-[facility] 200 [facility] (ABNORMAL) CBC without Differential (03/14/2022 7:58 PM CDT) [facility] gist Method Time Signature Hemoglobin 7.9 [...] City/State/ZIP Code Phon e Number [facility] - [address] [place], [place] [address] [facility] [place] [address] Laboratories-[facility] [address] Transfuse Red Blood Cells : (03/14/2022 5:01 PM CDT) Rajani Clark APRN, C.N.P., M.S.N. BLOOD TRANSFUSION ORDERABLES Transfuse Red Blood Cells : , 1 Units (03/14/2022 5:01 PM CDT) Rajani Clark APRN, C.N.P., M.S.N. BLOOD TRANSFUSION ORDERABLES (ABNORMAL) CBC without Differential (03/14/2022 11:57 AM CDT) [facility] Method Time Signature Hemoglobin 7.0 (L) [...] M.S.N. LAB BLOOD ADD-ON Performing Organization Address City/[facility] Phon e Number [facility] - [address] [address] Laboratories-[address] Heparin Anti-Xa Assay (03/14/2022 11:57 AM [...] LAB BLOOD NON ADD-ON Performing Organization Address City/[facility] Phon e Number [facility] - [address] [address] [facility]-[address] (ABNORMAL) Thromboelastograph, Kaolin + Heparinase (03/14/2022 [...] 03/14/2022 METH TEG mm 10:28 AM CDT [id number]-Ntgkcimys 0.0 0.0 - 4.7 % 03/14/2022 METH e, TEG 10:28 AM CDT Lj70-Hcecnfywd 0.0 0.0 - 15.0 % 03/14/2022 METH e, TEG 10:28 AM CDT Specimen Anatomical Collection Method Collection Time Receive d Time (Source) Location / / Volume Laterality Blood 03/14/2022 9:00 AM 9:03 CDT AM CDT Marjorie Ardon LAB BLOOD NON ADD-ON Performing Organization Address City/[facility] Code Phon e Number [facility] - 200 [place], [place] [address] [place] [address] [facility] 200 [facility] Heparin Anti-Xa Assay (03/14/2022 6:13 AM [...] City/State/ZIP Code Phon e Number [facility] - 200 [place], [place] [address] [facility] [place] [address] Laboratories-[facility] 200 [facility] (ABNORMAL) CBC without Differential (03/14/2022 6:13 AM CDT) [facility] Method Time Signature Hemoglobin 7.5 (L) [...] City/State/ZIP Code Phon e Number [facility] - 200 [place], [place] [address] [facility] [place] [address] Laboratories-[facility] 200 [facility] (ABNORMAL) Thromboelastograph, Kaolin + Heparinase (03/14/2022 6:11 AM CDT) [facility] Method Time Signature R-Heparinase, 4.2 1.9 - 6.5 03/14/2022 METH TEG min 8:17 AM CDT K-Heparinase, 1.1 0.9 - 1.8 03/14/2022 METH TEG min 8:17 AM CDT Angle-Heparina 75.1 65.5 - 77.1 03/14/2022 METH se, TEG degrees 8:17 AM CDT MA-Heparinase, 76.7 (H) 58.2 - 76.2 03/14/2022 METH TEG mm 8:17 AM CDT Fv61-Azhaxswxb 0.0 0.0 - 4.7 % 03/14/2022 METH e, TEG 8:17 AM CDT Ei70-Nvacbnopo CANCELED % 03/14/2022 METH e, TEG 8:17 AM CDT Comment: Unable to complete testing due to an ass ay/equipment issue. Result canceled by the ancillary. Specimen Anatomical Collection Method Collection Time Receive d Time (Source) Location / / Volume Laterality Blood (Blood, 03/14/2022 6:11 AM 03/14/20 6:17 Venous) CDT AM CDT Rosie Staples P.A.-C., M.S. LAB BLOOD NON ADD-ON Performing Organization Address City/[facility] Phon e Number [facility] - [address] METH [address] (ABNORMAL) pH (03/13/2022 5:00 PM CDT) P athologist Signature pH 7.28 (L) 7.35 - 7.45 03/13/2022 [facility] pH 5:13 PM CDT Specimen Anatomical Collection Method Collection Time Receive d Time (Source) Location / / Volume Laterality Blood 03/13/2022 5:00 PM 5:08 CDT PM CDT Leena Trujillo M.D. LAB HISTORICAL OR DERS Performing Organization Address [facility] Phon e Number [facility] - [address] (ABNORMAL) Phosphorus Inorganic (03/13/2022 5:00 PM CDT) P athologist Signature Phosphorus 6.2 (H) 2.5 - 4.5 03/13/2022 DTL (Inorganic), S mg/dL 6:13 PM CDT Specimen Anatomical Collection Method Collection Time Receive d Time (Source) Location / / Volume Laterality Blood (Blood, 03/13/2022 5:00 PM 03/13/20 22 5:35 Venous) CDT PM CDT Leena Trujillo M.D. LAB BLOOD ADD-ON Performing Organization Address City/[facility] Code Phon e Number [facility] - 200 [place], [place] [address] [facility] [place] [address] Laboratories-[address] (ABNORMAL) Magnesium (03/13/2022 5:00 PM CDT) P athologist Signature Magnesium, S 2.8 (H) 1.7 - 2.3 03/13/2022 DTL mg/dL 6:13 PM CDT Specimen Anatomical Collection Method Collection Time Receive d Time (Source) Location / / Volume Laterality Blood (Blood, 03/13/2022 5:00 PM 03/13/20 22 5:35 Venous) CDT PM CDT Leena Trujillo M.D. LAB BLOOD ADD-ON Performing Organization Address City/[facility] Code Phon e Number [facility] - 200 [place], [place] [address] [place] [address] Laboratories-[address] (ABNORMAL) CBC without Differential (03/13/2022 5:00 [...] M.D. LAB BLOOD ADD-ON Performing Organization Address City/[facility] Phon e Number [facility] - [address] [place] [address] Calcium, Ionized (03/13/2022 5:00 PM CDT) P athologist Signature Calcium, 5.23 4.65 - 5.30 03/13/2022 [facility] Ionized, B mg/dL 5:13 PM CDT Specimen Anatomical Collection Method Collection Time Receive d Time (Source) Location / / Volume Laterality Blood (Blood, 03/13/2022 5:00 PM 03/13/20 22 5:08 Venous) CDT PM CDT Leena Trujillo M.D. LAB BLOOD NON ADD -ON Performing Organization Address City/[facility] Phon e Number [facility] - [address] [place], [place] [address] [address] (ABNORMAL) Basic Metabolic Panel (03/13/2022 5:00 [...] City/State/ZIP Code Phon e Number [facility] - [address] [place] [address] [facility] [place] [address] Laboratories-[facility] 200 [facility] (ABNORMAL) Thromboelastograph, Kaolin, Blood (03/13/2022 4:57 [...] City/State/ZIP Code Phon e Number [facility] - [address] [place], [place] [address] [facility] [place] [address] Laboratories-[facility] [address] DX Chest 1 View [...] LAB BLOOD NON ADD-ON Performing Organization Address City/[facility] Code Phon e Number [facility] - [address] (ABNORMAL) Lactate, B (03/13/2022 3:10 PM CDT) athologist [facility] Lactate, B 3.0 (H) 0.5 - 2.2 03/13/2022 [facility] mmol/L 3:12 PM CDT Specimen Anatomical Collection Method Collection Time Receive d Time (Source) Location / / Volume Laterality Blood (Blood, 03/13/2022 3:10 PM 03/13/20 22 3:10 Venous) CDT PM CDT Aleyda Giron M.D. LAB BLOOD NON ADD-ON Performing Organization Address City/[facility] Phon e Number [facility] - [address] (ABNORMAL) Glucose, Whole Blood (03/13/2022 3:10 [...] City/State/ZIP Code Phon e Number [facility] - [address] [place], [place] [address] [place] [id number] [facility] [address] Potassium, Blood (03/13/2022 3:10 [...] City/State/ZIP Code Phon e Number [facility] - [address] [place], [place] [address] 05 [place] [address] [facility] [address] Sodium, B (03/13/2022 3:10 [...] City/State/ZIP Code Phon e Number [facility] - [address] [place], [place] [address] [place] [address] [facility] [address] Calcium, Ionized (03/13/2022 [...] City/State/ZIP Code Phon e Number [facility] - [address] [place], [place] [address] [facility] [place] [address] Laboratories-[facility] [address] [facility] (ABNORMAL) Blood Gas with Coox, Arterial (03/13/2022 [...] City/State/ZIP Code Phon e Number [facility] - [address] [place], [place] [address] [facility] [place] [address] Laboratories-[facility] [address] Leukemia/Lymphoma Immunophenotyping by Flow Cytometry, Tissue (03/13/2022 2:41 PM CDT) Component Value Ref Test Analysis Performed At [facility] gist Range Method Time Signature LLPT Result Performed 03/14/2022 DTL 3:31 PM CDT Final These results are considered preliminary and require complete integration 03/14/2022 DTL Diagnosis: with the current pathology c [facility] [id number] for final interpretation. ??The 3:31 PM CDT result should NOT be interpreted in isolation for the purp oses of diagnosis or clinical management. Spleen, specimen for flow cytometric analysis ([id number]): No monotypic B-cell population, phenotypically abnorma l [...] performance characteristics were determined by [facility] in a manner consistent with CLIA [...] M.D. LAB GENETIC TESTING Performing Organization Address City/State/[facility] Code Phon e Number [facility] - 200 [place] [address] [facility] DTL [address] Patient Status (03/13/2022 2:13 PM CDT) P athologist Signature Temperature 36.7 37.0 deg C 03/13/2022 [facility] 2:13 PM CDT Specimen Anatomical Collection Method Collection Time Receive d Time (Source) Location / / Volume Laterality Blood 03/13/2022 2:13 PM 2:13 CDT PM CDT Memo Reyes UNIVERSITY SERVICES PROGRAM ASSOCIATE, DIAMOND DIE MAKER, MNA LAB BLOOD NON ADD-ON Performing Organization Address [facility] Phon e Number [facility] - [address] [place] [address] STMA [place] [address] [address] (ABNORMAL) CBC with Differential, Blood (03/13/2022 [...] M.D. LAB BLOOD ADD-ON Performing Organization Address City/[facility] Phon e Number [facility] - [address] (ABNORMAL) Glucose, Whole Blood (03/13/2022 2:13 PM CDT) athologist Signature Glucose 243 (H) 70 - 140 03/13/2022 [facility] mg/dL 2:16 PM CDT Specimen Anatomical Collection Method Collection Time Receive d Time (Source) Location / / Volume Laterality Blood (Blood, 03/13/2022 2:13 PM 03/13/20 22 2:13 Arterial Line) CDT PM CDT Dena Coon M.D. LAB BLOOD TROPONIN Performing Organization Address City/[facility] Phon e Number [facility] - [address] Potassium, Blood (03/13/2022 2:13 PM CDT) athologist Signature Potassium, B 4.2 3.6 - 5.2 03/13/2022 [facility] mmol/L 2:16 PM CDT Specimen Anatomical Collection Method Collection Time Receive d Time (Source) Location / / Volume Laterality Blood (Blood, 03/13/2022 2:13 PM 03/13/20 22 2:13 Arterial Line) CDT PM CDT Dena Coon M.D. LAB BLOOD NON ADD-ON Performing Organization Address City/[facility]/ZIP [facility] Phon e Number [facility] - 200 [place], [place] [address] [place] [address] Sodium, B (03/13/2022 2:13 PM CDT) athologist Signature Sodium, B 137 135 - 145 03/13/2022 2:16 [facility] mmol/L PM CDT Specimen Anatomical Collection Method Collection Time Receive d Time (Source) Location / / Volume Laterality Blood (Blood, 03/13/2022 2:13 PM 03/13/20 22 2:13 Arterial Line) CDT PM CDT Dena Coon M.D. LAB BLOOD NON ADD-ON Performing Organization Address City/[facility]/ZIP Code Phon e Number [facility] - 200 [place], [place] [address] [place] [address] (ABNORMAL) Calcium, Ionized (03/13/2022 2:13 PM CDT) P athologist Signature Calcium, 5.58 (H) 4.65 - 03/13/2022 [facility] Ionized, B 5.30 mg/dL 2:16 PM CDT Specimen Anatomical Collection Method Collection Time Receive d Time (Source) Location / / Volume Laterality Blood (Blood, 03/13/2022 2:13 PM 03/13/20 22 2:13 Arterial Line) CDT PM CDT Dena Coon M.D. LAB BLOOD NON ADD-ON Performing Organization Address City/[facility]/ZIP Code Phon e Number [facility] - 200 [place], [place] [address] [facility] [place] [address] (ABNORMAL) Blood Gas with Coox, Arterial [...] City/State/ZIP Code Phon e Number [facility] - [address] [place], [place] [address] [facility] [place] [address] Laboratories-[facility] [address] (ABNORMAL) Thromboelastograph, Kaolin, Blood [...] City/State/ZIP Code Phon e Number [facility] - [address] [place] [address] 05 [place] [address] Laboratories-[facility] 200 [facility] Surgical Pathology, Frozen Lab (03/13/2022 1:46 PM CDT) Component Value Ref Test Analysis Performed Pathologis t Range Method Time At Signature 03/19/2022 [facility] 4[facility]43 PM CDT Report Sonia Boone M.D. 03/19/2022 [facility] electronically 4:43 PM signed by CDT I [...] homogenous. ??Hilar lymph nodes are not identified. ??Radioisotope Technologist tissue submitted for permanent sections. ??Grossed by BRIAN Junior (Ann Marie)(ASCP) . Block Summary A Spleen 03/19/2022 [facility] A1 Possible hemangioma - 1 4:43 PM A2 Possible hemangioma - 2 CDT A3 Radioisotope Technologist infarcts - 1 A4 Radioisotope Technologist infarcts - 2 A5 Radioisotope Technologist infarcts - 3 A6 Additional sections of spleen - 1 A7 Additional sections of spleen - 2 A8 Additional sections of spleen - 3 A9 Additional sections of spleen - 4 A10 Additional sections of spleen - 5 Disclaimer This test was developed using an analyte specific reag ent. 03/19/2022 [facility] Its performance characteristics were determined by [place] 4:43 PM [facility] in a manner consistent with CLIA [...] City/State/ZIP Code Phon e Number [facility] - [address] [place], [place] [address] [place] [address] Laboratories-[address] Transfuse Red Blood Cells : (03/13/2022 [...] Organization Address City/State/ZIP Code Phon e Number [address] [address] [place] [address] [facility]-[address] (ABNORMAL) Blood Gas with Coox, Arterial [...] LAB BLOOD NON ADD-ON Performing Organization Address City/[facility] Code Phon e Number [facility] [id number] [place] [address] Patient Status (03/13/2022 12:20 PM CDT) P athologist Signature Temperature 36.6 37.0 deg C 03/13/2022 [facility] 12:20 PM CDT FIO2 0.51 0.21=AIR 03/13/2022 [facility] 12:20 PM CDT Specimen Anatomical Collection Method Collection Time Receive d Time (Source) Location / / Volume Laterality Blood 03/13/2022 12:20 03/13/2022 PM CDT 12:20 PM CDT Memo Reyes UNIVERSITY SERVICES PROGRAM ASSOCIATE, DIAMOND DIE MAKER, MNA LAB BLOOD NON ADD-ON Performing Organization Address City/[facility] Phon e Number [facility] [address] (ABNORMAL) Blood Gas with Coox, Arterial [...] City/State/ZIP Code Phon e Number [facility] - [address] [place], [place] [address] [facility] [place] [address] Laboratories-[facility] [address] Transfuse Platelets : (03/13/2022 12:04 PM CDT) Dena Coon M.D. BLOOD TRANSFUSION ORDERABLES Patient Status (03/13/2022 11:13 AM CDT) athologist Signature FIO2 0.60 0.21=AIR 03/13/2022 11:14 [facility] AM CDT Specimen Anatomical Collection Method Collection Time Receive d Time (Source) Location / / Volume Laterality Blood 03/13/2022 11:13 03/13/2022 AM CDT 11:13 AM CDT Memo Reyes UNIVERSITY SERVICES PROGRAM ASSOCIATE, DIAMOND DIE MAKER, MNA LAB BLOOD NON ADD-ON Performing Organization Address City/State/[facility] Phon e Number [facility] - [address] [place], [place] [address] [place], [place] [address] [place] [address] [address] [facility] Glucose, Whole Blood (03/13/2022 11:13 AM CDT) athologist Signature Glucose 102 70 - 140 03/13/2022 [facility] mg/dL 11:16 AM CDT Specimen Anatomical Collection Method Collection Time Receive d Time (Source) Location / / Volume Laterality Blood (Blood, 03/13/2022 11:13 03/13/2022 Arterial Line) AM CDT 11:13 AM CDT Dena Coon M.D. LAB BLOOD TROPONIN Performing Organization Address City/[facility] Code Phon e Number [facility] - [address] [place] [address] [address] [facility] [place] [address] [facility] [address] Potassium, Blood (03/13/2022 11:13 [...] City/State/ZIP Code Phon e Number [facility] - [address] Sodium, B (03/13/2022 11:13 AM CDT) athologist Signature Sodium, B 139 135 - 145 03/13/2022 [facility] mmol/L 11:16 AM CDT Specimen Anatomical Collection Method Collection Time Receive d Time (Source) Location / / Volume Laterality Blood (Blood, 03/13/2022 11:13 03/13/2022 Arterial Line) AM CDT 11:13 AM CDT Dena Coon M.D. LAB BLOOD NON ADD-ON Performing Organization Address [facility] Phon e Number [facility] - [address] [address] Laboratories-[address] Calcium, Ionized (03/13/2022 11:13 AM CDT) athologist Signature Calcium, 4.68 4.65 - 5.30 03/13/2022 [facility] Ionized, B mg/dL 11:16 AM CDT Specimen Anatomical Collection Method Collection Time Receive d Time (Source) Location / / Volume Laterality Blood (Blood, 03/13/2022 11:13 03/13/2022 Arterial Line) AM CDT 11:13 AM CDT Dena Coon M.D. LAB BLOOD NON ADD-ON Performing Organization Address City/[facility] Phon e Number [facility] - [address] [place] [address] [place] [address] (ABNORMAL) Blood Gas with Coox, Arterial (03/13/2022 [...] LAB BLOOD NON ADD-ON Performing Organization Address City/[facility] Phon e Number [facility] - 200 [place], [place] [address] [place] [address] (ABNORMAL) Prothrombin Time (PT) (03/13/2022 11:12 AM CDT) Patholo gist Method Time Signature Prothrombin 13.1 (H) 9.4 - 12.5 03/13/2022 [facility] Time, P sec 11:26 AM CDT INR [...] M.D. LAB BLOOD ADD-ON Performing Organization Address City/State/[facility] Phon e Number [facility] - 200 [place], [place] [address] [place] [address] Laboratories-[address] Fibrinogen (03/13/2022 11:12 AM CDT) P athologist Signature Fibrinogen, P 340 200 - 393 03/13/2022 [facility] mg/dL 11:25 AM CDT Specimen Anatomical Collection Method Collection Time Receive d Time (Source) Location / / Volume Laterality Blood (Blood, 03/13/2022 11:12 03/13/2022 Arterial Line) AM CDT 11:12 AM CDT Dena Coon M.D. LAB BLOOD ADD-ON Performing Organization Address City/[facility] Phon e Number [facility] - 200 [place], [place] [address] [facility] [place] [address] APTT (Activated Partial Thromboplastin Time) (03/13/2022 [...] M.D. LAB BLOOD ADD-ON Performing Organization Address City/[facility] Phon e Number [facility] - 200 [place], [place] [address] [place] [address] Transfuse Red Blood Cells : (03/13/2022 [...] 03/13/2022 2:50 10 mL Abdo rajesh Tissue plasma)-rooqdbxtzd-tjsxobhtt-Ca PM CDT topical solution (TISSEEL VHSD) As [...] 1823 documented in this encounter Care Teams Spa Director/Finance Relationship Specialty Start Date End Date Elsewhere, Pcp PCP - General 11/04/21 documented as of this encounter
--- OUTSIDE RECORDS SUMMARY | 2022-05-02 12:28 | XMS_ITS | Encounter Summary ---
:1970 Author Organization [facility] Address [address] [place] [address] Care Team Providers Name Role Phone Elsewhere, Pcp Primary Care Provider Unavailable Encounter Details Date Type Department Care Team Description 03/14/2022 Orders Only Division of [facility] Yao Tafoya M.D., M.S. 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
--- OUTSIDE RECORDS SUMMARY | 2022-05-02 12:28 | XMS_ITS | Encounter Summary ---
:1970 Author Organization [facility] Address [address] [place] [address] Care Team Providers Name Role Phone Elsewhere, Pcp Primary Care Provider Unavailable Reason for Referral Outpatient (Routine) - Closed Specialty Diagnoses / Procedures Referred By Contact Refer red To Contact Radiology Diagnoses Splenomegaly Acquired Hema Rothman M.D. [facility] Procedures IR Arterial Embolization [address] [place] [phone] Referral ID Status Reason Start Date Expiration Date Visits Requ ested Visits Authorized [id number] Closed 02/26/2022 02/26/2023 1 1 Reason for Visit Outpatient (Routine) - Closed Specialty Diagnoses / Procedures Referred By Contact Refer red To Contact Radiology Diagnoses Splenomegaly Acquired Hema Rothman M.D. [facility] Procedures IR Arterial Embolization [address] [place] [phone] Referral ID Status Reason Start Date Expiration Date Visits Requ ested Visits Authorized [id number] Closed 02/26/2022 02/26/2023 1 1 Encounter Details Date Type Department Care Team Description 03/13/2022 Hospital Encounter Department of Hema Rothman M.D. [address] [place] [phone] Splenomegaly Acquired Radiology in Octavio Rodrigez M.D. [address] [place] [phone] Juan Gay Madison, M.D. 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 A 5 South Sudanese Jasiel 1 sheath was placed. The celiac ar carolyne was selected with a Rand B catheter. Arteriogram demonstrating massive splenomegaly and d istortion of the celiac axis due to mass effect. The sheath was advanced into the splenic artery and a 4 [place] Sudanese glide catheter was advanced further into the [...] image was created and stored. A 5 [place] Jasiel 1 sheath was placed. The celiac ar carolyne was selected with a Rand B catheter. Arteriogram demonstrating massive splenomegaly and d istortion of the celiac axis due to mass effect. The sheath was advanced into the splenic artery and a 4 [place]ese glide catheter was advanced further into the [...] City/State/ZIP Code Phon e Number [facility] - [address] [place] [address] [place] [address] [facility] 200 [facility] (ABNORMAL) Blood Gas with Coox, Arterial [...] NON ADD-ON Performing Organization Address City/[facility] Phon e Number [facility] - 200 [place], [place] 55 05 [place] [address] Transfuse Red Blood Cells : (03/13/2022 [...] LAB BLOOD NON ADD-ON Performing Organization Address City/State/[facility] Code Phon e Number [facility] - 200 [place], [place] [address] [facility] [place] [place] [address] Glucose, Whole Blood (03/13/2022 9:02 AM CDT) P athologist Signature Glucose 119 70 - 140 03/13/2022 9:08 [facility] mg/dL AM CDT Specimen Anatomical Collection Method Collection Time Receive d Time (Source) Location / / Volume Laterality Blood (Blood, 03/13/2022 9:02 AM 03/13/20 9:02 Arterial Line) CDT AM CDT Meghan Ng APRN, CRNA LAB BLOOD TROPONIN Performing Organization Address City/[facility]/ZIP Code Phon e Number [facility] - 200 [place], [place] [address] [place] [address] [facility] 200 [facility] Potassium, Blood (03/13/2022 9:02 AM CDT) athologist Signature Potassium, B 4.8 3.6 - 5.2 03/13/2022 [facility] mmol/L 9:08 AM CDT Specimen Anatomical Collection Method Collection Time Receive d Time (Source) Location / / Volume Laterality Blood (Blood, 03/13/2022 9:02 AM 03/13/20 9:02 Arterial Line) CDT AM CDT Meghan Ng APRN, CRNA LAB BLOOD NON ADD-ON Performing Organization Address City/[facility]/ZIP Code Phon e Number [facility] - 200 [place], [place] [address] [facility] [place] [place] [address] [place] [address] [facility] Sodium, B (03/13/2022 9:02 AM CDT) athologist [...] City/State/ZIP Code Phon e Number [facility] - 200 [place], [place] 55 05 [place] [address] Calcium, Ionized (03/13/2022 9:02 AM CDT) [...] City/State/ZIP Code Phon e Number [facility] - 200 [place], [place] [address] [facility] [place] [address] [facility] 200 [facility] (ABNORMAL) Blood Gas with Coox, Arterial [...] City/State/ZIP Code Phon e Number [facility] - [address] [place], [place] [address] [facility] [place] [address] [facility] [address] documented [...] 0958 documented in this encounter Care Teams Powdered Sugar Pulverizer Operator Relationship Specialty Start Date End Date Elsewhere, Pcp PCP - General 11/04/21 documented as of this encounter
--- OUTSIDE RECORDS SUMMARY | 2022-05-02 12:29 | XMS_ITS | Encounter Summary ---
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 Gian and Jennifer: [phone] Thank you Johanny [facility] Telephone Encounter - Otilia [...] Jocelyne Bales - 02/19/2022 3:03 PM CDT [facility] sending results for labs collected on 02/14/2022. Fax has been sent to scanning. documented in 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 Care Teams Mold Shaker Relationship Specialty Start Date End Date Elsewhere, Pcp PCP - General 11/04/21 documented as of this encounter
--- OUTSIDE RECORDS SUMMARY | 2022-05-02 12:29 | XMS_ITS | Encounter Summary ---
:1970 Author Organization [facility] Address [address] [place] [address] Care Team Providers Name Role Phone Elsewhere, Pcp Primary Care Provider Unavailable Encounter Details Date Type Department Care Team Description 02/22/2022 Documentation Division of Hematology in Isidro Zamarripa, [place], [place] Murphy, B.Ch. 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
--- OUTSIDE RECORDS SUMMARY | 2022-05-02 12:29 | XMS_ITS | Encounter Summary ---
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 - 01/15/2022 4:22 PM CDT She has been getting transfusions at [facility]. Her hgb is better at 7.2 today. 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 Cintia Carr Telephone Encounter - Jocelyne Bales - 01/15/2022 3:56 PM CDT Outside labs collected on 01/15/2022 have been received. The fax has been scanned into the patient record via [employer], and the CBC results are as noted below. Hemoglobin: 7.2 Hematocrit: 24.2 WBC: 4.65 ANC: 2.82 Platelets: 48 Please note: Are there additional labs reported on the outside report? Yes documented in 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 Care Teams Public Health Epidemiologist Relationship Specialty Start Date End Date Elsewhere, Pcp PCP - General 11/04/21 documented as of this encounter
--- OUTSIDE RECORDS SUMMARY | 2022-05-02 12:29 | XMS_ITS | Encounter Summary ---
:1970 Author Organization [facility] Address [address] [place] [address] Care Team Providers Name Role Phone Elsewhere, Pcp Primary Care Provider Unavailable Encounter Details Date Type Department Care Team Description 02/13/2022 Hospital Encounter Department of Gangat, Myelofib rosis Primary Laboratory Medicine [facility], ([facility] and Pathology, [facility] in [address] [place] [phone] [place], [place] [phone] (Work) [phone] Social History Tobacco Use Types Packs/Day Years [...] at Date Recorded 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 Research IRB [id number] Take by mouth. Pt 0 03/11/2022 alisertib ([id number]) 10 is unsure of what mg DR [...] Address City/State/ZIP Code Phon e Number [facility] - [address] [place], [place] [address] [facility] [address] Laboratories-[facility] [address] (ABNORMAL) [...] 02/13/2022 DTL Black/ mL/min/BSA 5:42 PM CDT Malagasy Comment: ----ADDITIONAL INFORMATION---- Estimated GFR calculated using [...] AlexandraSZahraa LAB BLOOD ADD-ON Performing Organization Address City/State/[facility] Code Phon e Number [facility] - [address] [place], [place] [address] [facility] [address] [place] [address] [facility] (ABNORMAL) SPSMA Result (02/13/2022 4:01 PM CDT) [facility] Method Time Signature Neutrophilic Segs 70 50 [...] Moderate dacrocytes are present. 7:21 PM CDT [facility] Reviewed by: Liz 02/13/2022 7:21 PM CDT [facility] Specimen Anatomical Collection Method Collection Time Receive d Time (Source) Location / / Volume Laterality Blood (Blood, 02/13/2022 4:01 PM 02/14/20 4:30 Venous) CDT PM CDT Janusz AlexandraSZahraa LAB BLOOD ADD-ON Performing Organization Address City/State/[facility] Code Phon e Number [facility] - [address] [place], [place] [address] [facility] [place] [address] [facility] [address] (ABNORMAL) CBC with Differential, Blood (02/13/2022 4:01 PM CDT) [facility] gist Method Time Signature Hemoglobin 6.5 [...] Address City/State/ZIP Code Phon e Number [facility] - [address] [place], [place] [address] [facility] [place] [address] [facility] [address] documented in this encounter Visit Diagnoses Diagnosis Myelofibrosis Primary (HCC) documented in this encounter Care Teams Continuity Editor Relationship Specialty Start Date End Date Elsewhere, Pcp PCP - General 11/04/21 documented as of this encounter
--- OUTSIDE RECORDS SUMMARY | 2022-05-02 12:29 | XMS_ITS | Encounter Summary ---
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 The fax has been scanned into the patient record via [email or web address], and the CBC results are as noted [...] to see her records- Karol at [facility] tells him we can see them. I assured him that I cannot. I've attempted to request to view, but typically they have to sign forms through that institution for us to be able to see them. He asked me to call her at [phone] to see if this can be figured out. They would like Dr. Govea to be able to accessher records. That number was disconnected. I found [phone] online I called and spoke with Donna NARAYAN at the [facility]. She assures me that we cannot see [...] week, scheduled for today at 11am at [facility]. Gian ph:[phone] Thank you Johanny [facility] documented in 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 Care Teams Manager College Relationship Specialty Start Date End Date Elsewhere, Pcp PCP - General 11/04/21 documented as of this encounter
--- OUTSIDE RECORDS SUMMARY | 2022-05-02 12:29 | XMS_ITS | Encounter Summary ---
:1970 Author Organization [facility] Address [address] [place] [address] Care Team Providers Name Role Phone Elsewhere, Pcp Primary Care Provider Unavailable Reason for Referral Outpatient (Routine) - Closed Specialty Diagnoses / Procedures Referred By Contact Refer red To Contact Radiology Diagnoses Splenomegaly Acquired Hema Rothman M.D. [facility] Procedures IR Arterial Embolization [address] [place] [phone] Referral ID Status Reason Start Date Expiration Date Visits Requ ested Visits Authorized [id number] Closed 02/26/2022 02/26/2023 1 1 utpatient (Routine) - Closed Specialty Diagnoses / Procedures Referred By Contact Refer red To Contact Anesthesiology Diagnoses Splenomegaly Acquired Hema Rothman M.D. [facility] [address] [place] [phone] Referral ID Status Reason Start Date Expiration Date Visits Requ ested Visits Authorized [id number] Closed 02/26/2022 02/26/2023 1 1 Reason for Visit Outpatient (Routine) - Closed Specialty Diagnoses / Procedures Referred By Contact Refer red To Contact General Surgery Diagnoses Myelofibrosis Primary (HCC) [facility] [address] [place] [phone] Referral ID Status Reason Start Date Expiration Date Visits Requ ested Visits Authorized [id number] Closed 02/14/2022 02/14/2023 1 1 Encounter Details Date Type Department Care Team Description 02/26/2022 Comprehensive Visit Division of Hema Rothman Splenom egaly Acquired (Primary Dx); Hepatobiliary and E M.DZahraa Myelofibrosis Primary (HCC); Pancreas Surgery in [address] Pancytopenia (HCC) [place], [place] [address] [address] [place], [place] [phone] (Work) [phone] Social History Tobacco Use Types Packs/Day Years [...] at Date Recorded 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 - 02/26/2022 2:30 PM CDT SURGICAL ONCOLOGY CONSULT NOTE SUBJECTIVE CHIEF COMPLAINT/REASON FOR VISIT Patient is referred by Murphy ForemanBZahraaSZahraa for consultation regarding newly splenomegaly and myelofibrosis HISTORY OF PRESENT ILLNESS Ms. Dobbs is a 51 y.o. female from [place], [place] with symptomatic splenomegaly and transfusion-dependent anemia [...] image was created and stored. A 5 Samoan Jasiel 1 sheath was placed. The celiac ar carolyne was selected with a Rand B catheter. Arteriogram demonstrating massive splenomegaly and d istortion of the celiac axis due to mass effect. The sheath was advanced into the splenic artery and a 4 Samoan glide catheter was advanced further into the [...] image was created and stored. A 5 Samoan Jasiel 1 sheath was placed. The celiac ar carolyne was selected with a Rand B catheter. Arteriogram demonstrating massive splenomegaly and d istortion of the celiac axis due to mass effect. The sheath was advanced into the splenic artery and a 4 Samoan glide catheter was advanced further into the [...] PCR, Varies Asymptomatic (03/12/2022 9:37 AM CDT) [facility] Method Time Signature COVID-19, Swab, 03/12/2022 [...] ----ADDITIONAL INFORMATION---- This RT-PCR test using the C-Vibes SARS-Co V-2 Assay ( Takipi.) performed on the C-Vibes Two Module System has received Emergency Use Authorization (EUA) by the U.S. Food and Drug Administration, and is modified from the plastics seasoner operator's instructions with a bridging study. Performance characteristics were verifie d by [facility] in a manner consistent with CLIA requirements. Visit the CDC website: https://www.cdc.g ov/coronavirus/ for the most recent guidelines on [place] virus testing. Fact Sheet for Healthcare Providers: https://www.fda.gov/media/657529/downloa d Fact Sheet for Patients: https://www.fda.gov/media/386143/downloa d Specimen Anatomical Collection Method Collection Time Receive d Time (Source) Location / / Volume Laterality Varies 03/12/2022 9:37 AM (Nasopharynx) CDT 10:32 AM CDT Hema Rothman M.D. LAB MICROBIOLOGY - GENERAL O RDERABLES Performing Organization Address City/State/ZIP Code Phon e Number [facility] - [address] [place], [place] [address] [facility] [place] [address] Laboratories-[facility] [address] Type and Screen (with reflex Antibody ID) (03/12/2022 8:55 AM CDT) [facility] Fast[facility] Method Time Signature ABORh A Pos Not [...] BANK TEST ORDERABL ES Performing Organization Address City/State/[facility] Code Phon e Number [facility] - [address] [place], [place] [address] [facility] [place] [address] [facility] [address] [facility] [place] (ABNORMAL) CBC without Differential (03/12/2022 8:55 AM CDT) [facility] Method Time Signature Hemoglobin 6.5 (L) [...] City/State/ZIP Code Phon e Number [facility] - [address] [place], [place] [address] [facility] [place] [address] [facility] [address] documented in this encounter Visit Diagnoses Diagnosis Splenomegaly Acquired - Primary Myelofibrosis Primary (HCC) Pancytopenia (HCC) Splenomegaly Acquired documented in this encounter Care Teams Instructor Trainer Canine Service Relationship Specialty Start Date End Date Elsewhere, Pcp PCP - General 11/04/21 documented as of this encounter
--- OUTSIDE RECORDS SUMMARY | 2022-05-02 12:29 | XMS_ITS | Encounter Summary ---
:1970 Author Organization 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
--- OUTSIDE RECORDS SUMMARY | 2022-05-02 12:29 | XMS_ITS | Encounter Summary ---
:1970 Author Organization [facility] Address [address] [place] [address] Care Team Providers Name Role Phone Elsewhere, Pcp Primary Care Provider Unavailable Encounter Details Date Type Department Care Team Description 03/12/2022 Hospital Encounter Department of Hema Rothman Acquired Laboratory Medicine [place] and Pathology, [address] [place] [address] in [place] [phone] [place] [phone] [place] [address] (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 LAB BLOOD BANK TEST ORDERABL ES Performing Organization Address City/[facility] Phon e Number [facility] - 200 [place] [address] [facility] [place] [address] Laboratories-[facility] 200 [facility] (ABNORMAL) CBC without Differential (03/12/2022 8:55 AM CDT) [facility] gist Method Time Signature Hemoglobin 6.5 (L) [...] M.D. LAB BLOOD ADD-ON Performing Organization Address City/[facility] Phon e Number [facility] - 200 [place] [address] [facility] [place] [address] documented in this encounter Visit Diagnoses Diagnosis Splenomegaly Acquired documented in this encounter Additional Health Concerns Infection Onset Date Last Indicated Resolved Time COVID19 Pending 03/12/2022 03/12/2022 03/12/2022 3:02 PM CDT documented as of this encounter Care Teams Rn Travel Relationship Specialty Start Date End Date Elsewhere, Pcp PCP - General 11/04/21 documented as of this encounter
--- OUTSIDE RECORDS SUMMARY | 2022-05-02 12:29 | XMS_ITS | Encounter Summary ---
:1970 Author Organization [facility] Address [address] [place] [address] Care Team Providers Name Role Phone Elsewhere, Pcp Primary Care Provider Unavailable Reason for Referral Outpatient (Routine) - Authorized Specialty Diagnoses / Procedures Referred By Contact Refer red To Contact Cardiovascular Disease Charity Tijerina [facility] M.B.B.S. [address] [place] [phone] Referral ID Status Reason Start Date Expiration Date Visits V isits Requested Authorized [id number] Authorized 11/13/2021 11/13/2022 1 1 Outpatient (Routine) - Authorized Specialty Diagnoses / Procedures Referred By Contact Refer red To Contact Diagnoses Hypertension Pulmonary Primary (HCC) Charity Tijerina M.B.B.S. [facility] Procedures Echo Transthoracic (TTE) [address] [place] [phone] Referral ID Status Reason Start Date Expiration Date Visits V isits Requested Authorized [id number] Authorized 11/13/2021 11/13/2022 1 1 Outpatient (Routine) - Authorized Specialty Diagnoses / Procedures Referred By Contact Refer red To Contact Diagnoses Hypertension Pulmonary Primary (HCC) Charity Tijerina M.B.B.S. [facility] Procedures Six Minute Walk [address] [place] [phone] Referral ID Status Reason Start Date Expiration Date Visits V isits Requested Authorized [id number] Authorized 11/13/2021 11/13/2022 1 1 Reason for Visit Outpatient (Routine) - Closed Specialty Diagnoses / Procedures Referred By Contact Refer red To Contact [facility] [address] [place] [phone] Referral ID Status Reason Start Date Expiration Date Visits Requ ested Visits Authorized [id number] Closed 10/24/2021 10/24/2022 1 1 Encounter Details Date Type Department Care Team Description 11/13/2021 Virtual Visit Department of Charity Tijerina, Hypertension Pulmonary Primary (HCC) (Primary Dx); Cardiovascular Medicine M.B.B.S. 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 Hilton Singer with the following results. Investigation Right [...] consent. Evy Arellano. CT CT Job ID: [id number]/bas documented in this encounter Plan of Treatment [...] (HCC) documented in this encounter Care Teams Power Equipment Mechanics Instructor Relationship Specialty Start Date End Date Elsewhere, Pcp PCP - General 11/04/21 documented as of this encounter
--- OUTSIDE RECORDS SUMMARY | 2022-05-02 12:29 | XMS_ITS | Encounter Summary ---
:1970 Author Organization [facility] Address [address] [place] [address] Care Team Providers Name Role Phone Elsewhere, Pcp Primary Care Provider Unavailable Encounter Details Date Type Department Care Team Description 12/25/2021 Clinical Communication Division of Hematology Janusz Govea, in [facility] milton ArringtonB.S. 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 Call back number is [phone]. Is it okay to leave a voicemail? Yes. Is it okay to send a patient online message with your reply? No. Thank you, [facility] documented in 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 Care Teams Mail Sorter And Delivery Relationship Specialty Start Date End Date Elsewhere, Pcp PCP - General 11/04/21 documented as of this encounter
--- OUTSIDE RECORDS SUMMARY | 2022-05-02 12:29 | XMS_ITS | Encounter Summary ---
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 MF on Inrebic. Transfused locally at [facility]. ThanksCintia Telephone Encounter - Jocelyne Bales - 01/28/2022 1:06 PM CDT Outside labs collected on 01/28/2022 have been received. The fax has been scanned into the patient record via [employer], and the CBC results are as noted below. Hemoglobin: 5.8 Hematocrit: 19.2 WBC: 3.37 ANC: 2.10 Platelets: 65 Please note: Are there additional labs reported on the outside report? Yes documented in 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 Care Teams Embossing Press Operator Apprentice Relationship Specialty Start Date End Date Elsewhere, Pcp PCP - General 11/04/21 documented as of this encounter
--- OUTSIDE RECORDS SUMMARY | 2022-05-02 12:29 | XMS_ITS | Encounter Summary ---
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
--- OUTSIDE RECORDS SUMMARY | 2022-05-02 12:29 | XMS_ITS | Encounter Summary ---
:1970 Author Organization [facility] Address [address] [place] [address] Care Team Providers Name Role Phone Elsewhere, Pcp Primary Care Provider Unavailable Encounter Details Date Type Department Care Team Description 03/04/2022 Documentation Division of Hematology [place] NasrinS. 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
--- OUTSIDE RECORDS SUMMARY | 2022-05-02 12:29 | XMS_ITS | Encounter Summary ---
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
--- OUTSIDE RECORDS SUMMARY | 2022-05-02 12:29 | XMS_ITS | Encounter Summary ---
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 - 02/25/2022 4:55 PM CDT I called and spoke with Gian, received verbal authorization to speak with him from Jennifer. He statesthat Jennifer is going to get 1 unit of pRBC's tomorrow morning and then will head down to [place] for appt with Dr. Rothman. She continues with twice weekly labs. Telephone Encounter - Jocelyne Bales - 02/25/2022 2:03 PM CDT Outside labs collected on 02/25/2022 have been received. The fax has been scanned into the patient record via [place], and the CBC results are as noted below. Hemoglobin: 7.2 Hematocrit: 23.1 WBC: 3.38 ANC: 2.10 Platelets: 64 Please note: Are there additional labs reported on the outside report? Yes documented in 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 Care Teams Green Building Materials Designer Relationship Specialty Start Date End Date Elsewhere, Pcp PCP - General 11/04/21 documented as of this encounter
--- OUTSIDE RECORDS SUMMARY | 2022-05-02 12:29 | XMS_ITS | Encounter Summary ---
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 - 02/27/2022 1:46 PM CDT I received a request from Dr. Rothman to schedule Jennifer Dobbs for a Splenic Artery Embolization. The patient is scheduled to undergo the procedure at [facility] with Dr. Rodrigez on 03/13/22. PLAN: The patient is scheduled for a VIR LENNY visit on 03/12/22. PRE PROCEDURE: COVID 19 PCR testing to be completed on: 03/12/22 MOUNTER AUTOMATIC needed for procedure. Dr. Rothman's team to notify the patient of these appointments. Labs: 02/13/22,which may be reviewed in the patient's EMR. ECG: Will be done in the PAR. documented in 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 Care Teams Fashion Supervisor Relationship Specialty Start Date End Date Elsewhere, Pcp PCP - General 11/04/21 documented as of this encounter
--- OUTSIDE RECORDS SUMMARY | 2022-05-02 12:29 | XMS_ITS | Encounter Summary ---
:1970 Author Organization [facility] Address [address] [place] [address] Care Team Providers Name Role Phone Elsewhere, Pcp Primary Care Provider Unavailable Reason for Visit Outpatient (Routine) - Closed Specialty Diagnoses / Procedures Referred By Contact Refer red To Contact Anesthesiology Diagnoses Splenomegaly Acquired Hema Rothman M.D. [facility] 200 [place], [place] [phone] Referral ID Status Reason Start Date Expiration Date Visits Requ ested Visits Authorized [id number] Closed 02/26/2022 02/26/2023 1 1 Encounter Details Date Type Department Care Team Description 03/12/2022 Comprehensive Visit Preoperative Phuc Rothman M.D. [address] [place] [phone] Preanesthetic Medical Exam (Primary Dx); Evaluation Center in Fausto Gaona M.D. 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 Written and verbal instructions given on medication [...] documented as of this encounter Care Teams Sonar Technician Relationship Specialty Start Date End Date Elsewhere, Pcp PCP - General 11/04/21 documented as of this encounter
--- OUTSIDE RECORDS SUMMARY | 2022-05-02 12:29 | XMS_ITS | Encounter Summary ---
:1970 Author Organization [facility] Address [address] [place] [address] Care Team Providers Name Role Phone Elsewhere, Pcp Primary Care Provider Unavailable Encounter Details Date Type Department Care Team Description 03/13/2022 Anesthesia Event RST ROMB MAIN OR Aleyda Giron M.D. [address] [place] [phone] [address] [place] [address] Shira Mann M.D. [address] [place] [phone] [place] [address] Anesthesia Record Procedure Summary [...] Catheter 03/13/22; 1035 (created 03/13/22 1035 by ([facility]) via procedure Mayank Novoa, documentation); 8.5 [...] Schubert, B randon Time: 0839 (created via RIBBON CLEANERDUNG Baez, DANNY, CAR BARN LABORER procedure documentation); Mask Ventilation: Easy mask; Type: [...] Ng Higgins, Je ffrey Time: 0847; Catheter RIBBON CLEANER, CAR BARN LABORER R, R.N. 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 - 03/13/2022 7:14 PM CDT Patient: Jennifer Dobbs Procedure Summary Date: 03/13/22 Room / Location: [place] [address] / [facility] in [place], [place]; Department of Radiology in [place], [place] Anesthesia Start: 821 Anesthesia Stop: 1621 [...] fellow participated in the procedure, and the provider relations consultant was present for the entire procedure. [...] ETT location: oral VL device: glide scope Rowan scope blade size: 3 Adult tube size: [...] arteriogram with embolization prior to splenectomy Location: [facility] 103 ROMB 01 506 / [facility] in [place], [place]; Department of Radiology in [place], [place] Pertinent components of the patient's history [...] with patient /legal guardian or through an produce clerk. Risks/Benefits/Alternatives of Blood transfusion discussed with patient [...] procedure are i n the results section. [facility] ANE CENTRAL LINE Routine 03/13/2022 11:12 Res ults for this TRIPLE LUMEN AM CDT procedure are i n the results section. OK INS NON-BAY CVC Routine 03/13/2022 11:12 Resul ts for this >5YR AM CDT procedure are i n the results section. ANE INVASIVE CATH Routine 03/13/2022 10:35 Res ults for this WITH ULTRASOUND AM CDT procedure ar e in the results section. LDA ANE RAPID Routine 03/13/2022 10:35 Results fo r this INFUSION CATHETER AM CDT procedure are in INSERTION the results section. OK US GUIDE VASC Routine 03/13/2022 10:35 Results for this ACCESS AM CDT procedure are i n the results section. LDA ANE ENDOTRACHEAL Routine 03/13/2022 8:39 AM R esults for this AIRWAY CDT procedure are i n the results section. documented in this encounter Results OK INS NON-BAY CVC >5YR, LDA ANE CENTRAL [...] fellow participated in the procedure, and the provider relations consultant was present for the entire procedure. Mayank Novoa M.D. PROCEDURE/MINOR SURGICAL ORD ERABLES OK US GUIDE VASC ACCESS, LDA ANE RAPID [...] ETT location: oral VL device: glide scope Rowan scope blade size: 3 Adult tube size: [...] obtained? Yes - Written consent obtained via [id number], [id number], or NP1846-01, Attending prescriber supervising blood product administration: CANDE BROWN, NIKITA Team Comments: Consent done/tt Transfuse Red Blood Cells : New Bag 03/13/2022 9:17 AM CDT Routine, Transfusion Indication: Hgb less than 7g/dL, Blood Product Administration Rate (mL/hr): 180 mL/hr, Special Requirements? No Special Requirements, Has consent been obtained? Yes - Written consent obtained via [id number], [id number], or RE5664-08, Attending prescriber supervising blood product administration: MAYANK NOVOA Transfuse Red Blood Cells : New Bag 03/13/2022 10:49 AM CDT Routine, Transfusion Indication: Hgb less than 7g/dL, Blood Product Administration Rate (mL/hr): 180 mL/hr, Special Requirements? No Special Requirements, Has consent been obtained? Yes - Written consent obtained via [id number], TP9538C, or [id number], Attending prescriber supervising blood product administration: MAYANK NOVOA Transfuse Red Blood Cells : New Bag 03/13/2022 1:35 PM CDT Routine, Transfusion Indication: Hgb less than 7g/dL, Blood Product Administration Rate (mL/hr): 180 mL/hr, Special Requirements? No Special Requirements, Has consent been obtained? Yes - Written consent obtained via [id number], [id number], or [id number], Attending prescriber supervising blood product administration: MAYANK NOVOA Transfuse Red Blood Cells : New Bag 03/13/2022 1:41 PM CDT Routine, Transfusion Indication: Hgb less than 7g/dL, Blood Product Administration Rate (mL/hr): 180 mL/hr, Special Requirements? No Special Requirements, Has consent been obtained? Yes - Written consent obtained via [id number], AT3132L, or BV3806-01, Attending prescriber supervising blood product administration: MAYANK NOVOA Transfuse Red Blood Cells : New Bag 03/13/2022 2:27 PM CDT Routine, Transfusion Indication: Hgb less than 7g/dL, Blood Product Administration Rate (mL/hr): 180 mL/hr, Special Requirements? No Special Requirements, Has consent been obtained? Yes - Written consent obtained via [id number], [id number], or BI9988-04, Attending prescriber supervising blood product administration: MAYANK [...] Units documented in this encounter Care Teams Electrical And Instrumentation Mechanic Relationship Specialty Start Date End Date Elsewhere, Pcp PCP - General 11/04/21 documented as of this encounter
--- OUTSIDE RECORDS SUMMARY | 2022-05-02 12:29 | XMS_ITS | Encounter Summary ---
:1970 Author Organization [facility] Address [address] [place] [address] Care Team Providers Name Role Phone Elsewhere, Pcp Primary Care Provider Unavailable Reason for Referral Outpatient (Routine) - Closed Specialty Diagnoses / Referred By Contact Referred To Contact Procedures Radiology / Diagnoses Splenomegaly Acquired Myelofibrosis Primary (HCC) Hema Rothman, [facility] Interventional Radiology [place] [address] [place] [phone] Referral ID Status Reason Start Date Expiration Date Visits Requ ested Visits Authorized [id number] Closed 02/27/2022 02/27/2023 1 1 Encounter Details Date Type Department Care Team Description 02/27/2022 Orders Only Department of [place]al, Amanda Joel, Splenome alfonzo Acquired (Primary Dx); Radiology in R.N. 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
--- OUTSIDE RECORDS SUMMARY | 2022-05-02 12:29 | XMS_ITS | Encounter Summary ---
:1970 Author Organization [facility] Address [address] [place] [address] Care Team Providers Name Role Phone Elsewhere, Pcp Primary Care Provider Unavailable Reason for Visit Reason Comments Med Refill Encounter Details Date Type Department Care Team Description 11/16/2021 Refill Division of Hematology in [facility] , Med Refill [place], [place] M.B.B.S. 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 Thank you- Amalia Hematology MAA documented in 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 Care Teams Emergency Vehicle Technician Relationship Specialty Start Date End Date Elsewhere, Pcp PCP - General 11/04/21 documented as of this encounter
--- OUTSIDE RECORDS SUMMARY | 2022-05-02 12:29 | XMS_ITS | Encounter Summary ---
:1970 Author Organization [facility] Address [address] [place] [address] Care Team Providers Name Role Phone Elsewhere, Pcp Primary Care Provider Unavailable Reason for Referral Outpatient (Routine) - Closed Specialty Diagnoses / Procedures Referred By Contact Refer red To Contact Diagnoses Myelofibrosis Primary (HCC) Janusz Govea M.B.B.S. [facility] Procedures US Spleen US Abdomen Limited [address] [place] [phone] Referral ID Status Reason Start Date Expiration Date Visits Requ ested Visits Authorized [id number] Closed 10/24/2021 10/24/2022 1 1 Reason for Visit Outpatient (Routine) - Closed Specialty Diagnoses / Procedures Referred By Contact Refer red To Contact Diagnoses Myelofibrosis Primary (HCC) Janusz Govea M.B.B.S. [facility] Procedures US Spleen US Abdomen Limited [address] [place] [address] [phone] Referral ID Status Reason Start Date Expiration Date Visits Requ ested Visits Authorized [id number] Closed 10/24/2021 10/24/2022 1 1 Encounter Details Date Type Department Care Team Description 02/13/2022 Hospital Encounter Department of Alexandria Govea Primary Radiology, Lexus Boudreaux ([facility]) Brock, in M.AundreaB.S. 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 Research IRB [id number] Take by mouth. Pt 0 03/11/2022 alisertib ([id number]) 10 is unsure of what mg DR [...] (HCC) documented in this encounter Care Teams Instrumentation Tech Relationship Specialty Start Date End Date Elsewhere, Pcp PCP - General 11/04/21 documented as of this encounter
--- OUTSIDE RECORDS SUMMARY | 2022-05-02 12:29 | XMS_ITS | Encounter Summary ---
:1970 Author Organization [facility] Address [address] [place] [address] Care Team Providers Name Role Phone Elsewhere, Pcp Primary Care Provider Unavailable Encounter Details Date Type Department Care Team Description 11/07/2021 Surgery Division of Isidro Singer - Cardiovascular Diseases Dewayne Herndon RIGHT in 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 Research IRB [id number] Take by mouth. Pt 0 03/11/2022 alisertib ([id number]) 10 is unsure of what mg DR [...] instructions were reviewed in detail as per [id number], with patient and family, they verbalized understanding. [...] For the complete report, see the Order-[employer] Documents. PROCEDURE TYPES 1. ??HEART CATHETERIZATION - [...] CBC without Differential (11/07/2021 1:02 PM CDT) [facility] Method Time Signature Hemoglobin 7.6 (L) [...] [facility] - [address] [place], [place] [address] [facility] [place] [address] [facility] [address] documented [...] injection documented in this encounter Care Teams Set Off Blocker Relationship Specialty Start Date End Date Elsewhere, Pcp PCP - General 11/04/21 documented as of this encounter
--- OUTSIDE RECORDS SUMMARY | 2022-05-02 12:29 | XMS_ITS | Encounter Summary ---
:1970 Author Organization [facility] Address [address] [place] [address] Care Team Providers Name Role Phone Elsewhere, Pcp Primary Care Provider Unavailable Reason for Referral Outpatient (Routine) - Authorized Specialty Diagnoses / Procedures Referred By Contact Refer red To Contact Hematology [facility] Katrina ArringtonB.S. [address] [place] [phone] Referral ID Status Reason Start Date Expiration Date Visits V isits Requested Authorized [id number] Authorized 02/14/2022 02/14/2023 1 1 Outpatient (Routine) - Closed Specialty Diagnoses / Procedures Referred By Contact Refer red To Contact General Surgery Diagnoses [facility]el[facility]rosis [facility]) [facility] [address] [place] [phone] Referral ID Status Reason Start Date Expiration Date Visits Requ ested Visits Authorized [id number] Closed 02/14/2022 02/14/2023 1 1 Reason for Visit Outpatient (Routine) - Closed Specialty Diagnoses / Procedures Referred By Contact Refer red To Contact Hematology [facility] Katrina Higgins.B.S. [address] [place] [phone] Referral ID Status Reason Start Date Expiration Date Visits Requ ested Visits Authorized [id number] Closed 10/24/2021 10/24/2022 1 1 Encounter Details Date Type Department Care Team Description 02/14/2022 Office Visit Division of Hematology Xuan Myelo fibrosis Primary in [facility], (HCC) (Primary Dx) [place] FreddyB.B.S. [address] 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 Nasrin ForemanS. CT CT Job ID: [id number] documented in this encounter Plan of Treatment Scheduled Orders Name Type Priority Associated Diagnoses Order S chedule CBC with Lab Routine Myelofibrosis Primary Expect ed: Differential, ([facility]) 05/17/2022 Blood (Approximate), Expires: 05/17/2023 SPSMA Result Pathology and Routine Myelofibrosis Primary Expec latonya: Cytology ([facility]) 05/17/2022 (Approximate), Expires: 02/14/2023 LD (Lactate Lab Routine Myelofibrosis Primary Expect ed: Dehydrogenase) ([facility]) 05/17/2022 (Approximate), Expires: 05/17/2023 Scheduled Referrals Name Type Priority Associated Diagnoses [facility] - Outpatient Referral Routine Myelofibrosis Pr imary Expected: Spleen consult ([facility]) 02/14/2022 (clinic) (Approximate), Expires: 05/17/2023 Hematology office Outpatient Referral Routine Exp ected: visit (clinic) 05/17/2022 (Approximate), Expires: 05/17/2023 documented as of this encounter Visit Diagnoses Diagnosis Myelofibrosis Primary (HCC) - Primary documented in this encounter Care Teams Chief Of Safety And Protection Relationship Specialty Start Date End Date Elsewhere, Pcp PCP - General 11/04/21 documented as of this encounter
--- OUTSIDE RECORDS SUMMARY | 2022-05-02 12:29 | XMS_ITS | Encounter Summary ---
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
--- OUTSIDE RECORDS SUMMARY | 2022-05-02 12:29 | XMS_ITS | Encounter Summary ---
:1970 Author Organization [facility] Address [address] [place] [address] Care Team Providers Name Role Phone Elsewhere, Pcp Primary Care Provider Unavailable Reason for Visit Reason Comments Consult Outpatient (Routine) - Closed Specialty Diagnoses / Referred By Contact Referred To Contact Procedures Radiology / Diagnoses Splenomegaly Acquired Myelofibrosis Primary (HCC) Hema Rothman, [facility] Interventional Radiology M.DZahraa [address] [place] [phone] Referral ID Status Reason Start Date Expiration Date Visits Requ ested Visits Authorized [id number] Closed 02/27/2022 02/27/2023 1 1 Encounter Details Date Type Department Care Team Description 03/12/2022 Comprehensive Visit Department of Wanda Muniz Acquired (Primary Dx); Radiology, Dora Herndon APRN, C.N.P., [place] en[place] (HCC); [facility], in M.S.N. 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 Rodrigez. Patient presents [...] this patient please page Vascular Interventional Radiology KAIAWHINA KURA KAUPAPA MAORI/PA at [phone] Friday through Friday 7 a.m. to 5 p.m. or Vascular Interventional Radiology on-callresident at [phone] after 5 p.m. and on weekends. I [...] documented as of this encounter Care Teams Paint Sprayer Sandblaster Relationship Specialty Start Date End Date Elsewhere, Pcp PCP - General 11/04/21 documented as of this encounter
--- OUTSIDE RECORDS SUMMARY | 2022-05-02 12:29 | XMS_ITS | Encounter Summary ---
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 The fax has been scanned into the patient record via [employer], and the CBC results are as noted [...] from the original note were not included. [facility] faxing results for labs collected on 03/04/2022. Fax has been sent to scanning. documented in 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 Care Teams Mask Layout Designer Relationship Specialty Start Date End Date Elsewhere, Pcp PCP - General 11/04/21 documented as of this encounter
--- OUTSIDE RECORDS SUMMARY | 2022-05-02 12:30 | XMS_ITS | Encounter Summary ---
:1970 Author Organization [facility] Address [address] [place] [address] Care Team Providers Name Role Phone None Reported, Pcp Primary Care Provider Unavailable Reason for Referral Outpatient (Routine) - Closed Specialty Diagnoses / Procedures Referred By Contact Refer red To Contact Diagnoses Myelofibrosis Primary (HCC) Janusz Govea M.B.B.S. [facility] Procedures US Spleen US Abdomen Limited [address] [place] [phone] Referral ID Status Reason Start Date Expiration Date Visits Requ ested Visits Authorized [id number] Closed 07/23/2021 07/23/2022 1 1 Reason for Visit Outpatient (Routine) - Closed Specialty Diagnoses / Procedures Referred By Contact Refer red To Contact Diagnoses Myelofibrosis Primary (HCC) Janusz Govea M.B.B.S. [facility] Procedures US Spleen US Abdomen Limited [address] [place] [address] [phone] Referral ID Status Reason Start Date Expiration Date Visits Requ ested Visits Authorized [id number] Closed 07/23/2021 07/23/2022 1 1 Encounter Details Date Type Department Care Team Description 10/24/2021 Hospital Encounter Department of Alexandria Govea Primary Radiology, Lexus Boudreaux ([facility]) Brock, in M.AundreaB.S. 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 Research IRB [id number] Take by mouth. Pt 0 03/11/2022 alisertib ([id number]) 10 is unsure of what mg DR [...] documented as of this encounter Care Teams Dermatologist Relationship Specialty Start Date End Date None Reported, Pcp PCP - General Family Medicine 02/16/21 documented as of this encounter
--- OUTSIDE RECORDS SUMMARY | 2022-05-02 12:30 | XMS_ITS | Encounter Summary ---
:1970 Author Organization [facility] Address [address] [place] [address] Care Team Providers Name Role Phone None Reported, Pcp Primary Care Provider Unavailable Reason for Referral Outpatient (Routine) - Closed Specialty Diagnoses / Referred By Contact Referred To Contact Procedures Cardiovascular Diseases / Diagnoses Hypertension Pulmonary (HCC) [facility] M.AundreaB.S. 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 Internal/external: Internal ?? Goal or summary: pulm hypertension, totration of diuretics ?? Requested date: First available ?? Additional comments: call [phone] Keyonna Patient Appointment Services Specialist Division of Cardiovascular Diseases [address] [address] [email or web address] P RST [facility] SCHEDULING ATOLOGIST AND DERMATOPATHOLOGIST documented in this encounter Plan of Treatment Scheduled Referrals Name Type Priority Associated Diagnoses Order S [facility] Cardiovascular Disease Outpatient Routine Hypertension Expec latonya: - Pulmonary Referral Pulmonary (HCC) 09/12/2021 hypertension consult (Approx imate), (clinic) Expires: 12/13/2022 documented as of this encounter Visit Diagnoses Diagnosis Hypertension Pulmonary (HCC) - Primary documented in this encounter Care Teams Salt Maker Relationship Specialty Start Date End Date None Reported, Pcp PCP - General Family Medicine 02/16/21 documented as of this encounter
--- OUTSIDE RECORDS SUMMARY | 2022-05-02 12:30 | XMS_ITS | Encounter Summary ---
:1970 Author Organization [facility] Address [address] [place] [address] Care Team Providers Name Role Phone None Reported, Pcp Primary Care Provider Unavailable Encounter Details Date Type Department Care Team Description 10/16/2021 Specialty Pharmacy [facility] Aida Streeter, [address] Sarabjit Starks Pharm.[place]., 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 - 10/17/2021 3:06 PM CDT SUBJECTIVE REASON FOR VISIT Specialty pharmacy reassessment of patient's medication knowledge, adherence, and side effects via patient reported questionnaire. Reassessment questions were asked via phone by a patient medicare biller. (reviewed at or around patient requested refill ) HISTORY OF PRESENT ILLNESS Ms. Jennifer Dobbs is a 51 y.o. female, who is followed by the specialty pharmacy service for Inrebic (fedratinib) for myelofibrosis. Patient reported reassessment questions and responses: Informant: spouse How comfortable are you understanding the medication(s) you receive from [facility]?: Very Comfortable Side Effects Requiring Attention: [...] above and reviewing refill history in the [facility] record. The patient/caregiver [...] Also, please refer to provider assessment/plan within [facility]. See clinic note, Dr. Morales, 07/23/21. [...] meet the definition of high risk by [facility] definition. Follow-up: February by phone Aida Streeter Pharm.D., R.Ph. documented in 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 Care Teams Range Scientist Relationship Specialty Start Date End Date None Reported, Pcp PCP - General Family Medicine 02/16/21 documented as of this encounter
--- OUTSIDE RECORDS SUMMARY | 2022-05-02 12:30 | XMS_ITS | Encounter Summary ---
:1970 Author Organization [facility] Address [address] [place] [address] Care Team Providers Name Role Phone None Reported, Pcp Primary Care Provider Unavailable Reason for Referral Outpatient (Routine) - Closed Specialty Diagnoses / Procedures Referred By Contact Refer red To Contact Diagnoses Myelofibrosis Primary (HCC) Janusz Govea M.B.B.SZahraa [facility] Procedures US Spleen US Abdomen Limited [address] [place] [phone] Referral ID Status Reason Start Date Expiration Date Visits Requ ested Visits Authorized [id number] Closed 10/24/2021 10/24/2022 1 1 Outpatient (Routine) - Closed Specialty Diagnoses / Procedures Referred By Contact Refer red To Contact Hematology Oncology Janusz Govea [place] [facility] M.B.B.S. [address] [place] [phone] Referral ID Status Reason Start Date Expiration Date Visits Requ ested Visits Authorized [id number] Closed 10/24/2021 10/24/2022 1 1 Reason for Visit Outpatient (Routine) - Closed Specialty Diagnoses / Procedures Referred By Contact Refer red To Contact Hematology Oncology Janusz Govea [place] [facility] eg[facility] M.B.B.S. [address] [place] [address] Referral ID Status Reason Start Date Expiration Date Visits Requ ested Visits Authorized [id number] Closed 07/23/2021 07/23/2022 1 1 Encounter Details Date Type Department Care Team Description 10/24/2021 Office Visit Division of Hematology Xuan Myelo fibrosis Primary in [facility], (HCC) (Primary Dx) [place] MZahraaBZahraaB.S. 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 Evy Foreman. CT CT Job ID: [id number] documented in this encounter Plan of Treatment [...] LD (Lactate Dehydrogenase) (02/13/2022 4:01 PM CDT) [facility] Method Time Signature Lactate 676 (H) 122 - 222 02/13/2022 DTL Dehydrogenase U/L 5:26 PM CDT (LD), S Specimen Anatomical Collection Method Collection Time Receive d Time (Source) Location / / Volume Laterality Blood (Blood, 02/13/2022 4:01 PM 02/14/20 4:30 Venous) CDT PM CDT Janusz Ardon LAB BLOOD NON ADD-ON Performing Organization Address City/State/ZIP Code Phon e Number [facility] - [address] [place], [place] [address] [facility] [place] [place] [address] [facility] [address] [facility] (ABNORMAL) Comprehensive Metabolic Panel (02/13/2022 4:01 [...] 02/13/2022 DTL Black/ mL/min/BSA 5:42 PM CDT Niuean Comment: ----ADDITIONAL INFORMATION---- Estimated GFR calculated using [...] Organization Address City/State/ZIP Code Phon e Number [facility] - [address] [place], [place] [address] [facility] [place] [address] [facility] [address] (ABNORMAL) SPSMA Result (02/13/2022 4:01 PM CDT) [facility] Method Time Signature Neutrophilic Segs 70 [...] CDT Nucleated RBC 11 /100 WBC 02/13/2022 [facility] 7:21 PM CDT Manual Absolute 1.82 1.56 - 02/13/2022 [facility] Neutrophil Count 6.45 7:21 PM CDT x10(9)/L Comment: ----ADDITIONAL INFORMATION---- The manual absolute neutrophil count is derived from a manual differential count and therefore is not exactly comparable to the automated absolute halie trophil count. Interpretation Moderate dacrocytes are present. 7:21 PM CDT [facility] Reviewed by: Liz 02/13/2022 7:21 PM CDT [facility] Specimen Anatomical Collection Method Collection Time Receive d Time (Source) Location / / Volume Laterality Blood (Blood, 02/13/2022 4:01 PM 02/14/20 4:30 Venous) CDT PM CDT Janusz Ardon LAB BLOOD ADD-ON Performing Organization Address City/State/ZIP Code Phon e Number [facility] - [address] [place] [address] [place] [address] [facility] [address] [facility] (ABNORMAL) CBC with Differential, Blood (02/13/2022 4:01 PM CDT) [facility] Method Time Signature Hemoglobin 6.5 (L) [...] Organization Address City/State/ZIP Code Phon e Number [facility] - [address] [place], [place] [address] [facility] [place] [address] [facility] [address] documented in this encounter Visit Diagnoses Diagnosis Myelofibrosis Primary (HCC) - Primary Myelofibrosis Primary (HCC) documented in this encounter Care Teams Hospitalist Program Director Relationship Specialty Start Date End Date None Reported, Pcp PCP - General Family Medicine 02/16/21 documented as of this encounter
--- OUTSIDE RECORDS SUMMARY | 2022-05-02 12:30 | XMS_ITS | Encounter Summary ---
:1970 Author Organization [facility] Address [address] [place] [address] Care Team Providers Name Role Phone None Reported, Pcp Primary Care Provider Unavailable Encounter Details Date Type Department Care Team Description 11/01/2021 Documentation Division of Hematology in [place], [place], B.Ch. 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
--- OUTSIDE RECORDS SUMMARY | 2022-05-02 12:30 | XMS_ITS | Encounter Summary ---
:[address] 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 Research IRB [id number] Take by mouth. Pt 0 03/11/2022 alisertib ([id number]) 10 is unsure of what mg DR [...] (HCC) documented in this encounter Care Teams Industrial Production Manager Relationship Specialty Start Date End Date None Reported, Pcp PCP - General Family Medicine 02/16/21 documented as of this encounter
--- OUTSIDE RECORDS SUMMARY | 2022-05-02 12:30 | XMS_ITS | Encounter Summary ---
:1970 Author Organization [facility] Address [address] [place] [address] Care Team Providers Name Role Phone None Reported, Pcp Primary Care Provider Unavailable Reason for Referral Outpatient (Routine) - Closed Specialty Diagnoses / Procedures Referred By Contact Refer red To Contact [facility]ovascular [facility] [address] [place] [phone] Referral ID Status Reason Start Date Expiration Date Visits Requ ested Visits Authorized [id number] Closed 10/24/2021 10/24/2022 1 1 Reason for Visit Outpatient (Routine) - Closed Specialty Diagnoses / Referred By Contact Referred To Contact Procedures Cardiovascular Diseases / Diagnoses Hypertension Pulmonary (HCC) [facility] M.B.B.S. [address] [place] [phone] Referral ID Status Reason Start Date Expiration Date Visits Requ ested Visits Authorized [id number] Closed 09/12/2021 09/12/2022 1 1 Encounter Details Date Type Department Care Team Description 10/24/2021 Comprehensive Visit Department of Parish Tijerina Pulmonary (HCC) (Primary Dx); Cardiovascular Charity, Regurgitation Tricuspid; Medicine in [facility] Failure Heart Right (HCC) [place] 200 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 Evy Arellano. CT CT Job ID: [id number] documented in this encounter Plan of Treatment [...] documented as of this encounter Care Teams Customer Success Advocate Relationship Specialty Start Date End Date None Reported, Pcp PCP - General Family Medicine 02/16/21 documented as of this encounter
--- OUTSIDE RECORDS SUMMARY | 2022-05-02 12:30 | XMS_ITS | Encounter Summary ---
:1970 Author Organization [facility] Address [address] [place] [address] Care Team Providers Name Role Phone Elsewhere, Pcp Primary Care Provider Unavailable Encounter Details Date Type Department Care Team Description 10/24/2021 Clinical Communication Division of Hematology Kavin Pineda, in [facility] MurphyB.S. 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 I called and spoke to Gian, Authorization on file. He states that Jennifer is going to [facility] tomorrow for type and screen and that they would need a letter stating that she needs 1 unit of pRBC. Patient normally gets transfusions at [facility] and sees provider Donna. I called [facility] [phone] and spoke with Thania. Informed her that [...] ETRM Expiration 23:59 2:19 PM CDT Testing [place] DEFAULT 10/24/2021 ETRM Location 1:44 PM CDT Specimen Anatomical Collection Method Collection Time Receive d Time (Source) Location / / Volume Laterality Blood (Blood, 10/24/2021 9:38 AM 10/25/19 1:44 Venous) CDT PM CDT Kavin Ardon LAB BLOOD BANK TEST ORDERABL ES Performing Organization Address City/State/ZIP Code Phon e Number [facility] - [address] [place], [place] [address] [facility] [place] [address] Laboratories-[facility] [address] documented in this encounter Visit Diagnoses Diagnosis Myelofibrosis Primary (HCC) - Primary documented in this encounter Additional Health Concerns Infection Onset Date Last Indicated Resolved Time COVID19 Pending 10/24/2021 11/05/2021 11/05/2021 11:54 PM CDT documented as of this encounter Care Teams Induction Machine Operator Relationship Specialty Start Date End Date Elsewhere, Pcp PCP - General 11/04/21 documented as of this encounter
--- OUTSIDE RECORDS SUMMARY | 2022-05-02 12:30 | XMS_ITS | Encounter Summary ---
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 - 09/10/2021 9:51 AM CST Order has been placed by Dr. Govea. ST SCIENTIST Telephone Encounter - Aleyda Bey - 09/03/2021 2:00 PM CST Cement Patcher called to schedule patient to see Cardiology in [place], and they are requesting a more specific order. They are unable to use the return to provider in another specialty order. Is this a [place] patient? Please place new order. ST SCIENTIST documented in 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 Care Teams Juke Box Servicer Relationship Specialty Start Date End Date None Reported, Pcp PCP - General Family Medicine 02/16/21 documented as of this encounter
--- OUTSIDE RECORDS SUMMARY | 2022-05-02 12:30 | XMS_ITS | Encounter Summary ---
:1970 Author Organization [facility] Address [address] [place] [address] Care Team Providers Name Role Phone None Reported, Pcp Primary Care Provider Unavailable Encounter Details Date Type Department Care Team Description 08/14/2021 Specialty Pharmacy [facility] Matthew Travis [address] Sarabjit Starks Jr., [place] [address] [address] [place] [address] [place] [phone] (Wo rk) Social History Tobacco Use Types [...] at Date Recorded Female 07/24/2021 11:03 AM LIBRARY CATALOGING TECHNICIAN documented as of this encounter Miscellaneous Notes Telephone Encounter - Matthew Travis Jr., R.Ph. - 08/15/2021 9:33 AM LIBRARY CATALOGING TECHNICIAN SUBJECTIVE REASON FOR VISIT Specialty pharmacy reassessment of patient's medication knowledge, adherence, and side effects via patient reported questionnaire. Reassessment questions were asked via phone by a patient specialist wound care. (reviewed at or around patient requested refill ) HISTORY OF PRESENT ILLNESS Ms. Jennifer Dobbs is a 51 y.o. female, who is followed by the specialty pharmacy service for Inrebic (fedratinib). (Indication: hematology/oncology) Patient reported reassessment questions and responses: Informant: spouse How comfortable are you understanding the medication(s) you receive from [facility]?: Very Comfortable Side Effects Requiring Attention: [...] above and reviewing refill history in the [facility] record. The patient/caregiver reports appropriate medication knowledge. No adherence issues identified. 2. Medication Side effects/Adverse Events In reference to the patient reported information above: The patient/caregiver reports no medication side effects requiring attention. No reported adverse drug reactions, allergic reactions, overdoses or medication errors. 3. Effectiveness Patient reports medication effectiveness to be: 'not certain'. Also, please refer to provider assessment/plan within [facility] on the following date 07/23/2021. 4. Quality [...] Follow-up: 1 month(s) Matthew Travis Jr., R.Ph. ARY CATALOGING TECHNICIAN documented in 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 Care Teams Farm Equipment Service Technician Relationship Specialty Start Date End Date None Reported, Pcp PCP - General Family Medicine 02/16/21 documented as of this encounter
--- OUTSIDE RECORDS SUMMARY | 2022-05-02 12:30 | XMS_ITS | Encounter Summary ---
:1970 Author Organization [facility] Address [address] [place] [address] Care Team Providers Name Role Phone None Reported, Pcp Primary Care Provider Unavailable Encounter Details Date Type Department Care Team Description 08/10/2021 Clinical Communication Division of Hematology Dinorah Morales, in [facility] [place] rotary engine assembler M.B.B.S. 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
--- OUTSIDE RECORDS SUMMARY | 2022-05-02 12:30 | XMS_ITS | Encounter Summary ---
:1970 Author Organization [facility] Address [address] [place] [address] Care Team Providers Name Role Phone None Reported, Pcp Primary Care Provider Unavailable Encounter Details Date Type Department Care Team Description 09/07/2021 Clinical Communication Division of Hematology Janusz Govea, in [facility] milton Higgins.B.S. 200 [address] [facility] [address] [place] [phone] [phone] Social History Tobacco Use Types Packs/Day Years [...] at Date Recorded Female 07/24/2021 11:03 AM RESOURCING CONSULTANT documented as of this encounter Miscellaneous Notes Telephone Encounter - Ting Martinez - 09/07/2021 9:[address] Govea Does the patient need to see Cardiovascular Disease urgently or can this be scheduled in October when she is coming back for a Hematology follow up? Thank you Ting LARSEN URCING CONSULTANT documented in 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 Care Teams Manager Integrity Relationship Specialty Start Date End Date None Reported, Pcp PCP - General Family Medicine 02/16/21 documented as of this encounter
--- OUTSIDE RECORDS SUMMARY | 2022-05-02 12:30 | XMS_ITS | Encounter Summary ---
:1970 Author Organization [facility] Address [address] [place] [address] Care Team Providers Name Role Phone None Reported, Pcp Primary Care Provider Unavailable Encounter Details Date Type Department Care Team Description 08/17/2021 Orders Only Division of Hematology in [place]idro abernathy M.B.[place], [place] B.Ch. 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
--- OUTSIDE RECORDS SUMMARY | 2022-05-02 12:30 | XMS_ITS | Encounter Summary ---
:1970 Author Organization [facility] Address [address] [place] [address] Care Team Providers Name Role Phone Elsewhere, Pcp Primary Care Provider Unavailable Reason for Visit Reason Comments Medical marijuana Encounter Details Date Type Department Care Team Description 10/25/2021 Clinical Communication Department of [facility], [facility], [place] Cardiovascular [facility], Medicine in [place] [address] [address] [place] [address] [place] [phone] Social History Tobacco Use Types Packs/Day Years [...] at Date Recorded Female 07/24/2021 11:03 AM PARTS ROOM ASSISTANT documented as of this encounter Miscellaneous [...] Name of caller/relationship to the patient: Libby [employer] Patient expects communication via portal: No Phone number: [phone] Request topic and what needs to be addressed? Other ?? Goal or summary: Is Mrs. Crane heart condition stable at baseline prior to prescribing medicalcannabis? Additional comments: See previous communications from October 25 and regarding medical marijuana. Libby is a pharmacist from [employer] and has been waiting for a response [...] She indicates it was not clear why [employer] was asking for the input of Dr. Tijerina since she was not the order prescriber. In any event, Mrs. Dobbs will follow up with the ordering provider and [facility]. Disposition/Recommendation: self-care is appropriate at this [...] expects communication via portal: No Phone number: [phone] Request topic and what needs to be [...] documented as of this encounter Care Teams Mechanical Adjuster Relationship Specialty Start Date End Date Elsewhere, Pcp PCP - General 11/04/21 documented as of this encounter
--- OUTSIDE RECORDS SUMMARY | 2022-05-02 12:30 | XMS_ITS | Encounter Summary ---
:1970 Author Organization [facility] Address [address] [place] [address] Care Team Providers Name Role Phone None Reported, Pcp Primary Care Provider Unavailable Encounter Details Date Type Department Care Team Description 10/24/2021 Lab Department of Infusion Janusz Govea P ancytopenia (HCC) (Primary Dx); Therapy in [facility] Myelofibrosis Primary (HCC) [address] [place] [address] [phone] Social History Tobacco Use Types Packs/Day Years [...] at Date Recorded Female 07/24/2021 11:03 AM IMAGING SERVICES DIRECTOR documented as of this encounter Plan of [...] documented as of this encounter Care Teams Principal Java Software Engineer Relationship Specialty Start Date End Date None Reported, Pcp PCP - General Family Medicine 02/16/21 documented as of this encounter
--- OUTSIDE RECORDS SUMMARY | 2022-05-02 12:30 | XMS_ITS | Encounter Summary ---
:1970 Author Organization [facility] Address [address] [place] [address] Care Team Providers Name Role Phone None Reported, Pcp Primary Care Provider Unavailable Encounter Details Date Type Department Care Team Description 08/24/2021 Orders Only Department of Oncology in Pietro De Luna M.D. 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
--- OUTSIDE RECORDS SUMMARY | 2022-05-02 12:30 | XMS_ITS | Encounter Summary ---
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 Research IRB [id number] Take by mouth. Pt 0 03/11/2022 alisertib ([id number]) 10 is unsure of what mg DR [...] SAB Antibody Screen (10/24/2021 9:42 AM CDT) [facility] Method Time Signature Class II SAB Positive [...] below 10/26/2021 7:41 AM CDT [id number] Comment: 7(07:01)[2488], 4(04:04)[6460], 4(04:02) [321] Format: Serologic Eq.(DRB1 Mol. Allele)[ Normalized MFI] NOTE: Data is displayed in descending or kesha by Mean Fluorescence Intensity (MFI). ??Serologic equivalents can be di splayed multiple times for different molecular alleles. SAB EIU912 Specificity NONE 10/26/2021 7:41 A M CDT [...] ----ADDITIONAL INFORMATION---- Method: Luminex Flow Cytometry CLIA: [id number] ??CLIA Experimental Technician: VALENTINA GOLD MD,PhD Specimen Anatomical Collection Method Collection Time Receive d Time (Source) Location / / Volume Laterality Blood (Blood, 10/24/2021 9:42 AM 10/25/19 22 Venous) CDT 11:00 AM CDT Dinorah Ardon LAB HLA ORDERABLES Performing Organization Address City/State/ZIP Code Phon e Number [facility] - [address] [place], [place] [address] [facility] [address]BB[address] [place] [address] [facility] [address] [facility] HLA Class I SAB Antibody Screen (10/24/2021 9:42 AM CDT) [facility] Method Time Signature Class I SAB Positive [...] ----ADDITIONAL INFORMATION---- Method: Luminex Flow Cytometry CLIA: [id number] ??CLIA Experimental Technician: VALENTINA GOLD MD,PhD Specimen Anatomical Collection Method Collection Time Receive d Time (Source) Location / / Volume Laterality Blood (Blood, 10/24/2021 9:42 AM 10/25/19 22 Venous) CDT 11:00 AM CDT Dinorah Ardon LAB HLA ORDERABLES Performing Organization Address City/State/ZIP Code Phon e Number [facility] - [address] [place], [place] [address] [facility] [address] [place] [address] [facility] [address] [facility] (ABNORMAL) LD (Lactate Dehydrogenase) (10/24/2021 9:42 AM CDT) [facility] Method Time Signature Lactate 641 (H) 122 - 222 10/24/2021 DTL Dehydrogenase U/L 10:55 AM CDT (LD), S Specimen Anatomical Collection Method Collection Time Receive d Time (Source) Location / / Volume Laterality Blood (Blood, 10/24/2021 9:42 AM 10/25/19 22 Venous) CDT 10:34 AM CDT Janusz Ardon LAB BLOOD NON ADD-ON Performing Organization Address City/State/ZIP Code Phon e Number [facility] - [address] [place], [place] [address] [facility] [place] [address] [facility] [address] [facility] (ABNORMAL) Comprehensive Metabolic Panel (10/24/2021 9:42 AM [...] 10/24/2021 DTL Black/ mL/min/BSA 10:56 AM CDT Croatian Comment: ----ADDITIONAL INFORMATION---- Estimated GFR calculated [...] Organization Address City/State/ZIP Code Phon e Number [facility] - [address] [place] [address] [facility] [place] [address] [facility] 200 [facility] (ABNORMAL) Morphology Evaluation (Special Smear) (10/24/2021 9:42 [...] CDT Nucleated RBC 6 /100 WBC 10/24/2021 [facility] 11:53 AM CDT Manual Absolute 3.08 1.56 - 10/24/2021 [facility] Neutrophil Count 6.45 11:53 AM CDT x10(9)/L Comment: ----ADDITIONAL INFORMATION---- The manual absolute neutrophil count is derived from a manual differential count and therefore is not exactly comparable to the automated absolute halie trophil count. Interpretation Moderate dacrocytes are present. 11:53 AM CDT [facility] Reviewed by: Liz 10/24/2021 11:53 AM CDT [facility] Specimen Anatomical Collection Method Collection Time Receive d Time (Source) Location / / Volume Laterality Blood (Blood, 10/24/2021 9:42 AM 10/25/19 22 Venous) CDT 10:09 AM CDT Janusz Ardon LAB BLOOD ADD-ON Performing Organization Address City/State/ZIP Code Phon e Number [facility] - [address] [place] [address] [place] [address] [facility] [address] [facility] (ABNORMAL) CBC with Differential, Blood (10/24/2021 9:42 AM CDT) [facility] Method Time Signature Hemoglobin 6.8 (L) 11.6 [...] Count 84 (L) 157 - 371 10/24/2021 [facility] x10(9)/L 10:57 AM CDT Leukocytes 4.1 3.4 [...] Organization Address City/State/ZIP Code Phon e Number [facility] - [address] [place], [place] [address] [facility] [place] [address] [facility] [address] [place] [address] [facility] [address] documented in this encounter Visit Diagnoses Diagnosis Myelofibrosis Primary (HCC) documented in this encounter Care Teams Scrum Coach Relationship Specialty Start Date End Date None Reported, Pcp PCP - General Family Medicine 02/16/21 documented as of this encounter
--- OUTSIDE RECORDS SUMMARY | 2022-05-02 12:30 | XMS_ITS | Encounter Summary ---
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
--- OUTSIDE RECORDS SUMMARY | 2022-05-02 12:30 | XMS_ITS | Encounter Summary ---
:1970 Author Organization [facility] Address [address] [place] [address] Care Team Providers Name Role Phone Elsewhere, Pcp Primary Care Provider Unavailable Encounter Details Date Type Department Care Team Description 10/23/2021 Orders Only Division of Hematology Dinorah Morales M yelofibrosis 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 Allele)[ Normalized MFI] NOTE: Data is displayed in descending or kesha by Mean Fluorescence Intensity (MFI). ??Serologic equivalents can be di splayed multiple times for different molecular alleles. SAB FLB660 Specificity NONE 10/26/2021 7:41 A M CDT [...] below 10/26/2021 7:41 AM CDT DBB8 Comment: 14(A*02:01;B*14:01)[0285], 10(A*02:02;B* 10:01)[3043], 3(A*02:01;B*03:01)[1311], 9(A*02:01;B*09 :01)[1216], 5(A*02:02;B*05:01)[786], 17(A*02:01;B*17 :01)[781], 1(A*02:01;B*01:01)[563] Format: Serologic Eq.(DPA1;DPB1 Mol. All char)[Normalized MFI] NOTE: Data is displayed in descending or kesha by Mean Fluorescence Intensity (MFI). ??Serologic equivalents can be di splayed multiple times for different molecular alleles. ----ADDITIONAL INFORMATION---- Method: Luminex Flow Cytometry CLIA: [id number] ??CLIA Dog Hair Clipper: VALENTINA GOLD MD,PhD Specimen Anatomical Collection Method Collection Time Receive d Time (Source) Location / / Volume Laterality Blood (Blood, 10/24/2021 9:42 AM 10/25/19 22 Venous) CDT 11:00 AM CDT Dinorah Ardon LAB HLA ORDERABLES Performing Organization Address City/State/[facility] Code Phon e Number [facility] - [address] [place], [place] [address] [facility] [place] [address] [place] [address] [facility] [address] HLA Class I SAB Antibody Screen (10/24/2021 9:42 AM CDT) [facility] Method Time Signature Class I SAB [...] ----ADDITIONAL INFORMATION---- Method: Luminex Flow Cytometry CLIA: [id number] ??CLIA Dog Hair Clipper: VALENTINA GOLD MD,PhD Specimen Anatomical Collection Method Collection Time Receive d Time (Source) Location / / Volume Laterality Blood (Blood, 10/24/2021 9:42 AM 10/25/19 Venous) CDT 11:00 AM CDT Dinorah Ardon LAB HLA ORDERABLES Performing Organization Address City/State/[facility] Code Phon e Number [facility] - [address] [place], [place] [address] [facility] [place] [address] [place] [address] [facility] [address] documented in this encounter Visit Diagnoses Diagnosis Myelofibrosis Primary (HCC) - Primary documented in this encounter Additional Health Concerns Infection Onset Date Last Indicated Resolved Time COVID19 Pending 10/24/2021 11/05/2021 11/05/2021 11:54 PM CDT documented as of this encounter Care Teams Clinical Informaticist Relationship Specialty Start Date End Date Elsewhere, Pcp PCP - General 11/04/21 documented as of this encounter
--- OUTSIDE RECORDS SUMMARY | 2022-05-02 12:30 | XMS_ITS | Encounter Summary ---
:1970 Author Organization [facility] Address [address] [place] [address] Care Team Providers Name Role Phone None Reported, Pcp Primary Care Provider Unavailable Encounter Details Date Type Department Care Team Description 09/06/2021 Orders Only Division of Hematology Janusz Govea F luid Overload in [facility] 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
--- OUTSIDE RECORDS SUMMARY | 2022-05-02 12:30 | XMS_ITS | Encounter Summary ---
:1970 Author Organization [facility] Address [address] [place] [address] Care Team Providers Name Role Phone Elsewhere, Pcp Primary Care Provider Unavailable Encounter Details Date Type Department Care Team Description 11/05/2021 Hospital Encounter Department of Breezy, [facility], [facility] er For Preprocedural Laboratory Examination (COVID-19); Laboratory Medicine M.B.B.S. 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 Research IRB [id number] Take by mouth. Pt 0 03/11/2022 alisertib ([id number]) 10 is unsure of what mg DR [...] RNA, V Asymptomatic (11/05/2021 10:38 AM CDT) [facility] Method Time Signature SARS-CoV-2 Swab, 11/05/2021 [...] pe rformed using the Aptima SARS-CoV-2 assay ([employer] on the [employer]at[employer] tem under emergency use authorization (EUA) by the U.S. Food and Drug Administ ration. Fact sheets for this EUA assay can be fo und at the following links: For Healthcare Providers: https://www.fd a.gov/media/061417/download For Patients: https://www.fda.gov/media/ 376732/download Specimen Anatomical Collection Method Collection Time Receive d Time (Source) Location / / Volume Laterality Varies 11/05/2021 10:38 11/05/2021 4:09 (Nasopharynx) AM CDT PM CDT Charity Ardon LAB MICROBIOLOGY - GENERAL O RDERABLES Performing Organization Address City/State/ZIP Code Phon e Number [facility]- [address] [place] [address] [place] [address] [address] documented in this encounter Visit Diagnoses Diagnosis Encounter For Preprocedural Laboratory E xamination (COVID-19) Contact With And (Suspected) Exposure To COVID-19 documented in this encounter Additional Health Concerns Infection Onset Date Last Indicated Resolved Time COVID19 Pending 10/24/2021 11/05/2021 11/05/2021 11:54 PM CDT documented as of this encounter Care Teams Fpga Engineer Relationship Specialty Start Date End Date Elsewhere, Pcp PCP - General 11/04/21 documented as of this encounter
--- OUTSIDE RECORDS SUMMARY | 2022-05-02 12:30 | XMS_ITS | Encounter Summary ---
:1970 Author Organization [facility] Address [address] [place] [address] Care Team Providers Name Role Phone Elsewhere, Pcp Primary Care Provider Unavailable Encounter Details Date Type Department Care Team Description 11/07/2021 Hospital Encounter Division of Breezy, Hypertens ion Pulmonary (HCC); Cardiovascular Diseases Amita Nash [facility] in [facility] M.B.B.S. 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 Research IRB [id number] Take by mouth. Pt 0 03/11/2022 alisertib ([id number]) 10 is unsure of what mg DR [...] instructions were reviewed in detail as per [id number], with patient and family, they verbalized understanding. [...] CBC without Differential (11/07/2021 1:02 PM CDT) [facility] Method Time Signature Hemoglobin 7.6 (L) [...] Organization Address City/State/ZIP Code Phon e Number [facility] - [address] [place], [place] [address] [place] [address] [facility] [address] documented in [...] injection documented in this encounter Care Teams Director Of Operations For Therapy Relationship Specialty Start Date End Date Elsewhere, Pcp PCP - General 11/04/21 documented as of this encounter
--- OUTSIDE RECORDS SUMMARY | 2022-05-02 12:31 | XMS_ITS | Encounter Summary ---
:1970 Author Organization [facility] Address [address] [place] [address] Care Team Providers Name Role Phone None Reported, Pcp Primary Care Provider Unavailable Encounter Details Date Type Department Care Team Description 07/02/2021 Clinical Communication Division of Hematology [facility] in [facility] Ronaldo.B.S. 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 - 07/02/2021 12:54 PM CANE FLUME FEEDING MACHINE OPERATOR Patient is resting in exam room stating [...] prior to Dr. Govea meeting with patient. FLUME FEEDING MACHINE OPERATOR documented in 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 Additional Health Concerns Infection Onset Date Last Indicated Resolved Time COVID19 Pending 06/29/2021 07/15/2021 07/15/2021 2:24 PM CANE FLUME FEEDING MACHINE OPERATOR documented as of this encounter Care Teams Goodwill Representative Relationship Specialty Start Date End Date None Reported, Pcp PCP - General Family Medicine 02/16/21 documented as of this encounter
--- OUTSIDE RECORDS SUMMARY | 2022-05-02 12:31 | XMS_ITS | Encounter Summary ---
:1970 Author Organization [facility] Address [address] [place] [address] Care Team Providers Name Role Phone None Reported, Pcp Primary Care Provider Unavailable Reason for Visit Reason Comments Med Refill Encounter Details Date Type Department Care Team Description 06/12/2021 Clinical Communication Division of Hematology Janusz Govea, Med Refill in [facility] M.Cain.B.S. 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 Fax placed in the eFax Rx folder END DEVELOPER documented in 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 Additional Health Concerns Infection Onset Date Last Indicated Resolved Time COVID19 Pending 06/29/2021 07/15/2021 07/15/2021 2:24 PM BACK END DEVELOPER documented as of this encounter Care Teams Dean Of Instruction Relationship Specialty Start Date End Date None Reported, Pcp PCP - General Family Medicine 02/16/21 documented as of this encounter
--- OUTSIDE RECORDS SUMMARY | 2022-05-02 12:31 | XMS_ITS | Encounter Summary ---
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 documented as of this encounter Last Filed Vital Signs Vital Sign Reading Time Taken Comments Blood Pressure 117/64 07/24/2021 4:50 PM ACIDIZER HELPER Pulse 78 07/24/2021 4:50 PM ACIDIZER HELPER Temperature 36.8 ??C (98.2 ??F) 07/24/2021 4:50 PM ACIDIZER HELPER Respiratory Rate 16 07/24/2021 4:50 PM ACIDIZER HELPER Oxygen Saturation - - Inhaled Oxygen Concentration - - Weight - - Height - - Body Mass Index - - documented in this encounter Plan of Treatment Not on filedocumented as of this encounter Procedures Procedure Name Priority Date/Time Associated Diagnosis Comme nts TRANSFUSE RED BLOOD Routine 07/24/2021 2:35 PM Pancytope rodrick (HCC) CELLS ACIDIZER HELPER Myelofibrosis Primary (HCC) documented in this encounter Results Transfuse Red Blood Cells : (07/24/2021 4:52 PM ACIDIZER HELPER) Laurita Reyes P.A.-C., M.S. BLOOD TRANSFUSION ORDER NAGI Transfuse Red Blood Cells : , 1 Units (07/24/2021 4:52 PM ACIDIZER HELPER) Laurita Reyes P.A.-C., M.S. BLOOD TRANSFUSION ORDER NAGI documented in this encounter Visit Diagnoses Diagnosis Pancytopenia (HCC) - Primary Myelofibrosis (HCC) Myelofibrosis Primary (HCC) documented in this encounter Care Teams Cigarette Lighter Repairer Relationship Specialty Start Date End Date None Reported, Pcp PCP - General Family Medicine 02/16/21 documented as of this encounter
--- OUTSIDE RECORDS SUMMARY | 2022-05-02 12:31 | XMS_ITS | Encounter Summary ---
:1970 Author Organization [facility] Address [address] [place] [address] Care Team Providers Name Role Phone None Reported, Pcp Primary Care Provider Unavailable Encounter Details Date Type Department Care Team Description 06/13/2021 Orders Only Division of Endocrine [place], Linn Spl enomegaly Acquired and Metabolic Surgery R, R.N. 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 This result does not rule out COVID-19 in the patient, as the sensitivity of the test depends o n the timing of the specimen collection and quality of the specimen. Result should be correlated with patient's history and clinical presentat ion. ----ADDITIONAL INFORMATION---- This RT-PCR test using the [employer] SARS-Co V-2 Assay ( [employer] performed on the [employer] Two Module System has received Emergency Use Authorization (EUA) by the U.S. Food and Drug Administration, and is modified from the supervisor grove's instructions with a bridging study. Performance characteristics were verifie d by [facility] in a manner consistent with CLIA requirements. Visit the CDC website: https://www.cdc.g ov/coronavirus/ for the most recent guidelines on [place] virus testing. Fact Sheet for Healthcare Providers: https://www.fda.gov/media/315837/downloa d Fact Sheet for Patients: https://www.fda.gov/media/805860/downloa d Specimen Anatomical Collection Method Collection Time Receive d Time (Source) Location / / Volume Laterality Varies 07/15/2021 9:34 AM 2 (Nasopharynx) PARCEL POST TRUCK DRIVER 10:16 AM PARCEL POST TRUCK DRIVER Jose Luis Lacy M.D. LAB MICROBIOLOGY - GENERAL O RDERABLES Performing Organization Address City/State/ZIP Code Phon e Number [facility] - [address] [place] [address] [place] [address] [facility] 200 [facility] Type and Screen (with reflex Antibody ID) (07/15/2021 9:31 AM PARCEL POST TRUCK DRIVER) [facility] gist Method Time Signature ABORh A Pos Not 07/15/2021 ETRM applicable 10:31 AM PARCEL POST TRUCK DRIVER Antibody Negative Negative 07/15/2021 ETRM Screen 10:42 AM PARCEL POST TRUCK DRIVER Type & Screen 07/18/2021 07/15/2021 ETRM Expiration 23:59 10:31 AM PARCEL POST TRUCK DRIVER Testing [place] DEFAULT 07/15/2021 ETRM Location 9:36 AM PARCEL POST TRUCK DRIVER Specimen Anatomical Collection Method Collection Time Receive d Time (Source) Location / / Volume Laterality Blood (Blood, 07/15/2021 9:31 AM 07/15/19 9:36 Venous) PARCEL POST TRUCK DRIVER AM PARCEL POST TRUCK DRIVER Jose Luis Lacy M.D. LAB BLOOD BANK TEST ORDERABL ES Performing Organization Address City/State/ZIP Code Phon e Number [facility] - [address] [place], [place] [address] [place] [address] [facility] [address] documented in this encounter Visit Diagnoses Diagnosis Splenomegaly Acquired - Primary documented in this encounter Care Teams Price Checker Relationship Specialty Start Date End Date None Reported, Pcp PCP - General Family Medicine 02/16/21 documented as of this encounter
--- OUTSIDE RECORDS SUMMARY | 2022-05-02 12:31 | XMS_ITS | Encounter Summary ---
:1970 Author Organization [facility] Address [address] [place] [address] Care Team Providers Name Role Phone None Reported, Pcp Primary Care Provider Unavailable Encounter Details Date Type Department Care Team Description 07/23/2021 Hospital Encounter Department of Breezy, Mistyu, Hyperte nsion Pulmonary (HCC); Laboratory Medicine M.B.B.S. 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 Research IRB [id number] Take by mouth. Pt is 0 03/11/2022 alisertib ([id number]) 10 unsure of what this mg DR [...] for this PEPTIDE ABS, IGG, S AM PLANT PROTECTION SUPERVISOR Pulmonary (H CC) procedure are in Dyspnea On Exertion the resu lts section. ANTINUCLEAR ABS (GEMA), Routine 07/23/2021 8:38 Hypertension Re sults for this S AM PLANT PROTECTION SUPERVISOR Pulmonary (HCC) procedure are in Dyspnea On Exertion the resu lts section. documented in this encounter Results Cyclic Citrullinated Peptide Antibodies, IgG (07/23/2021 8:38 AM PLANT PROTECTION SUPERVISOR) Analysis Performed At Patho logist Time Signature Cyclic <15.6 <20.0 07/24/2021 [facility] Citrullinated (Negative) 11:18 AM PLANT PROTECTION SUPERVISOR Peptide Ab, S U Specimen Anatomical Collection Method Collection Time Receive d Time (Source) Location / / Volume Laterality Blood (Blood, 07/23/2021 8:38 AM 07/23/19 22 2:06 Venous) PLANT PROTECTION SUPERVISOR PM PLANT PROTECTION SUPERVISOR Charity Ardon LAB BLOOD ADD-ON Performing Organization Address City/[facility]/ZIP Code Phon e Number [facility] [address] [address] [place] [address] [address] [place] [address] Laboratory Medicine and Pathology [address] [place] [address] Dr. TORRES GEMA (Antinuclear Antibodies) (07/23/2021 8:38 AM PLANT PROTECTION SUPERVISOR) P athologist Signature Antinuclear Ab, 0.3 <=1.0 07/23/2021 [facility] S (Negative) 9:34 PM PLANT PROTECTION SUPERVISOR U Comment: ----ADDITIONAL INFORMATION---- Method: Enzyme-linked immunoassay using HEp-2 nuclear extract supplemented with purified antig ens. Specimen Anatomical Collection Method Collection Time Receive d Time (Source) Location / / Volume Laterality Blood (Blood, 07/23/2021 8:38 AM 07/23/19 22 2:06 Venous) PLANT PROTECTION SUPERVISOR PM PLANT PROTECTION SUPERVISOR Charity AlexandraSZahraa LAB BLOOD ADD-ON Performing Organization Address City/[facility]/ZIP Code Phon e Number [facility] [address] [address] MELISSA [place] [address] SUPPORT [facility] [place] [address] Laboratory Medicine and Pathology [address] [place] [address] Dr. TORRES documented in this encounter Visit Diagnoses Diagnosis Hypertension Pulmonary (HCC) Dyspnea On Exertion documented in this encounter Care Teams Glueline Worker Relationship Specialty Start Date End Date None Reported, Pcp PCP - General Family Medicine 02/16/21 documented as of this encounter
--- OUTSIDE RECORDS SUMMARY | 2022-05-02 12:31 | XMS_ITS | Encounter Summary ---
:1970 Author Organization [facility] Address [address] [place] [address] Care Team Providers Name Role Phone None Reported, Pcp Primary Care Provider Unavailable Encounter Details Date Type Department Care Team Description 07/23/2021 Hospital Encounter Department of Gangat, Myelofib rosis Primary Laboratory Medicine [facility], ([facility]) and Pathology, [facility] in [address] [place] [id number] [place], [place] [phone] (Work) [phone] Social History Tobacco Use Types Packs/Day Years [...] Date Recorded Female 07/24/2021 11:03 AM [employer] documented as of this encounter Medications at [...] (four) capsule hours as needed. Research IRB [id number] Take by mouth. Pt is 0 03/11/2022 alisertib ([id number]) 10 unsure of what this mg DR [...] Resul ts for this LOWRES, DTEST,B PM [employer] procedure ar e in the results section. HLA CLASS I TYPING Routine 09/04/2021 1:59 PM Res ults for this LOWRES, DTEST,B [employer] procedure ar e in the results section. HLA CLASS II TYPING Routine 08/31/2021 10:55 Resu lts for this HIGHRES,DTEST,B AM [employer] procedure ar e in the results section. HLA CLASS I TYPING Routine 08/31/2021 10:55 Resul ts for this HIGHRES,DTEST,B AM [employer] procedure ar e in the results section. HLA CLASS II TYPING Routine 08/31/2021 10:55 Resu lts for this LOWRES, DTEST,B AM [employer] procedure ar e in the results section. HLA CLASS I TYPING Routine 08/31/2021 10:55 Resul ts for this LOWRES, DTEST,B AM [employer] procedure ar e in the results section. SPSMA RESULT Routine 07/23/2021 10:44 Results for this AM [employer] procedure are i n the results section. CBC WITH Routine 07/23/2021 10:44 Myelofibrosis Primary Re sults for this DIFFERENTIAL, B AM [employer] (HCC) procedure ar e in the results [...] Cytometric Crossmatch, Varies (10/15/2021 10:43 AM CDT) [facility] Method Time Signature FXM Crossmatch [id number] 10/16/2021 DBB8 Donor BETHEL MENDEZ 6:35 AM [...] and its performa nce characteristics determined by [facility] in a manner co nsistent with CLIA requirements. This test has not been demetris ared or approved by the U.S. Food and Drug Administration. CLIA: [id number] ??CLIA Medical Dosimetrist: VALENTINA GOLD MD,PhD Specimen Anatomical Collection Method Collection Time Receive d Time (Source) Location / / Volume Laterality Blood 10/15/2021 10:43 10/15/2021 AM CDT 10:43 AM CDT Narrative [facility] - 10/16/2021 6:35 AM CDT Specimen Information: Specimen ID: [id number] Specimen Type: Blood Specimen Collection Start Date: 10:43 AM Specimen Received Date: 10/15/2021 10:43 AM Specimen ID: [id number] Specimen Type: Blood Specimen Collection Start Date: 10:43 AM Specimen Received Date: 10/15/2021 10:43 AM Specimen ID: [id number] Specimen Type: Blood Specimen Collection Start Date: 10:43 AM Specimen Received Date: 10/15/2021 10:43 AM Isidro Arrington B.Ch. LAB HLA ORDERABLES Performing Organization Address City/State/ZIP Code Phon e Number [facility] - [address] [place], [place] [address] [facility] [address]BB[address] [place] [address] Laboratories-[facility] 200 [facility] HLA Class I Typing by Low Resolution, Donor Testing (09/19/2021 12:01 PM [employer]) [facility] Method Time Signature Class I LR [id number] 09/20/2021 DBB8 Donor LIANG OCONNOR 4:41 PM [employer] OL A - 1 A2 Not 09/20/2021 DBB8 Equivalent Applicable 4:41 PM [employer] A - 2 A11 Not 09/20/2021 DBB8 Equivalent Applicable 4:41 PM [employer] A - 1 A*02 Not 09/20/2021 DBB8 Molecular Applicable 4:41 PM [employer] A - 2 A*11 Not 09/20/2021 DBB8 Molecular Applicable 4:41 PM [employer] B - 1 B62 Not 09/20/2021 DBB8 Equivalent Applicable 4:41 PM [employer] B - 2 B35 Not 09/20/2021 DBB8 Equivalent Applicable 4:41 PM [employer] B - 1 B*15 Not 09/20/2021 DBB8 Molecular Applicable 4:41 PM [employer] B - 2 B*35 Not 09/20/2021 DBB8 Molecular Applicable 4:41 PM [employer] Bw - 1 Bw6 Not 09/20/2021 DBB8 Equivalent Applicable 4:41 PM [employer] Bw - 2 Bw6 Not 09/20/2021 DBB8 Equivalent Applicable 4:41 PM [employer] C - 1 Cw4 Not 09/20/2021 DBB8 Equivalent Applicable 4:41 PM [employer] C - 2 Cw4 Not 09/20/2021 DBB8 Equivalent Applicable 4:41 PM [employer] C - 1 C*04 Not 09/20/2021 DBB8 Molecular Applicable 4:41 PM [employer] C - 2 C*04 Not 09/20/2021 DBB8 Molecular Applicable 4:41 PM [employer] Test Method PCR - 09/20/2021 DBB8 Reverse SSOP 4:41 PM [employer] Comment: ----ADDITIONAL INFORMATION---- Molecular HLA typing reported as serolog ical equivalents and low to medium resolution molecular value s. ??For convenience, when not defined in the WHO Nomenclature a laboratory defined serologic equivalent has been provided. CLIA: [id number] ??CLIA Medical Dosimetrist: VALENTINA GOLD MD,PhD Specimen Anatomical Collection Method Collection Time Receive d Time (Source) Location / / Volume Laterality Blood 09/19/2021 12:01 09/19/2021 PM [employer] 12:01 PM [employer] Isidro Arrington, B.Ch. LAB HLA ORDERABLES Performing Organization Address City/State/ZIP Code Phon e Number [facility] - [address] [place], [place] [address] [facility] [address] [place] [address] Laboratories-[facility] [address] [facility] HLA Class I Typing by Low Resolution, Donor Testing (09/04/2021 1:59 PM [employer]) [facility] Method Time Signature Class I LR [id number] 09/06/2021 DBB8 Donor LUDMILA MENDEZ 6:49 AM [employer] A - 1 A2 Not 09/06/2021 DBB8 Equivalent Applicable 6:49 AM [employer] A - 2 A11 Not 09/06/2021 DBB8 Equivalent Applicable 6:49 AM [employer] A - 1 A*02 Not 09/06/2021 DBB8 Molecular Applicable 6:49 AM [employer] A - 2 A*11 Not 09/06/2021 DBB8 Molecular Applicable 6:49 AM [employer] B - 1 B62 Not 09/06/2021 DBB8 Equivalent Applicable 6:49 AM [employer] B - 2 B35 Not 09/06/2021 DBB8 Equivalent Applicable 6:49 AM [employer] B - 1 B*15 Not 09/06/2021 DBB8 Molecular Applicable 6:49 AM [employer] B - 2 B*35 Not 09/06/2021 DBB8 Molecular Applicable 6:49 AM [employer] Bw - 1 Bw6 Not 09/06/2021 DBB8 Equivalent Applicable 6:49 AM [employer] Bw - 2 Bw6 Not 09/06/2021 DBB8 Equivalent Applicable 6:49 AM [employer] C - 1 Cw4 Not 09/06/2021 DBB8 Equivalent Applicable 6:49 AM [employer] C - 2 Cw4 Not 09/06/2021 DBB8 Equivalent Applicable 6:49 AM [employer] C - 1 C*04 Not 09/06/2021 DBB8 Molecular Applicable 6:49 AM [employer] C - 2 C*04 Not 09/06/2021 DBB8 Molecular Applicable 6:49 AM [employer] Test Method PCR - 09/06/2021 DBB8 Reverse SSOP 6:49 AM [employer] Comment: ----ADDITIONAL INFORMATION---- Molecular HLA typing reported as serolog ical equivalents and low to medium resolution molecular value s. ??For convenience, when not defined in the WHO Nomenclature a laboratory defined serologic equivalent has been provided. CLIA: [id number] ??CLIA Medical Dosimetrist: VALENTINA GOLD MD,PhD Specimen Anatomical Collection Method Collection Time Receive d Time (Source) Location / / Volume Laterality Blood 09/04/2021 1:59 PM 1:59 [employer] PM [employer] Isidro Arrington, B.Ch. LAB HLA ORDERABLES Performing Organization Address City/State/ZIP Code Phon e Number [facility] - [address] [place] [address] [facility] [address] [place] [address] Laboratories-[facility] 200 [facility] HLA Class II Typing by High Resolution, Donor Testing (08/31/2021 10:55 AM [employer]) [facility] Method Time Signature Class II HR [id number] 10/20/2021 DBB8 Donor BETHEL MENDEZ 11:01 PM CDT DRB1 - 1 DR1 Not 10/20/2021 DBB8 Equivalent Applicable 11:01 PM CDT DRB1 - 2 DR12 Not 10/20/2021 DBB8 Equivalent Applicable 11:01 PM CDT DRB1 - 1 DRB1*01:03 Not 10/20/2021 DBB8 Allele Applicable 11:01 PM CDT DRB1 - 2 DRB1*12:01 Not 10/20/2021 DBB8 Allele Applicable 11:01 PM CDT BCB883 - 1 DR52 Not 10/20/2021 DBB8 Equivalent Applicable 11:01 PM CDT EHV489 - 1 DRB3*02:02 Not 10/20/2021 DBB8 Allele [...] Nolan K, et al. 2020; 1-16 [email or web address]://doi.[email or web address]/T [email or web address].[email or web address]). For convenience, when not defined in the WHO Nomenclature a laboratory defined serologic equivalent has been provided. This test was developed and its performa nce characteristics determined by [facility] in a manner co nsistent with CLIA requirements. This test has not been demetris ared or approved by the U.S. Food and Drug Administration. CLIA: [id number] ??CLIA Medical Dosimetrist: VALENTINA GOLD MD,PhD Specimen Anatomical Collection Method Collection Time Receive d Time (Source) Location / / Volume Laterality Blood 08/31/2021 10:55 08/31/2021 AM [employer] 10:55 AM [employer] Isidro Arrington B.Ch. LAB HLA ORDERABLES Performing Organization Address City/State/[facility] Code Phon e Number [facility] - [address] [place] [address] [facility] [address] [place] [address] Laboratories-[facility] 200 [facility] HLA Class I Typing by High Resolution, Donor Testing (08/31/2021 10:55 AM [employer]) [facility] Method Time Signature Class I HR [id number] 10/20/2021 DBB8 Donor BETHEL MENDEZ 11:01 PM [...] Nolan K, et al. 2020; 1-16 [email or web address]://doi.[email or web address]/T [email or web address].[email or web address]). For convenience, when not defined in the WHO Nomenclature a laboratory defined serologic equivalent has been provided. This test was developed and its performa nce characteristics determined by [facility] in a manner co nsistent with CLIA requirements. This test has not been demetris ared or approved by the U.S. Food and Drug Administration. CLIA: [id number] ??CLIA Medical Dosimetrist: VALENTINA GOLD MD,PhD Specimen Anatomical Collection Method Collection Time Receive d Time (Source) Location / / Volume Laterality Blood 08/31/2021 10:55 08/31/2021 AM [employer] 10:55 AM [employer] Isidro Arrington, B.Ch. LAB HLA ORDERABLES Performing Organization Address City/State/ZIP Code Phon e Number [facility] - [address] [place] [address] [facility] [address] [place] [address] Laboratories[facility] [address] [facility] HLA Class II Typing by Low Resolution, Donor Testing (08/31/2021 10:55 AM [employer]) [facility] Method Time Signature Class II LR [id number] 09/19/2021 DBB8 Donor BETHEL MENDEZ 8:43 AM [employer] DRB1 - 1 DR103 Not 09/19/2021 DBB8 Equivalent Applicable 8:43 AM [employer] DRB1 - 2 DR12 Not 09/19/2021 DBB8 Equivalent Applicable 8:43 AM [employer] DRB1 - 1 DRB1*01 Not 09/19/2021 DBB8 Molecular Applicable 8:43 AM [employer] DRB1 - 2 DRB1*12 Not 09/19/2021 DBB8 Molecular Applicable 8:43 AM [employer] WND789 - 1 DR52 Not 09/19/2021 DBB8 Equivalent Applicable 8:43 AM [employer] RPQ069 - 1 DRB3*02 Not 09/19/2021 DBB8 Molecular Applicable 8:43 AM [employer] DQB1 - 1 DQ7 Not 09/19/2021 DBB8 Equivalent Applicable 8:43 AM [employer] DQB1 - 2 DQ5 Not 09/19/2021 DBB8 Equivalent Applicable 8:43 AM [employer] DQB1 - 1 DQB1*03 Not 09/19/2021 DBB8 Molecular Applicable 8:43 AM [employer] DQB1 - 2 DQB1*05 Not 09/19/2021 DBB8 Molecular Applicable 8:43 AM [employer] DQA1 - 1 DQA1*01 Not 09/19/2021 DBB8 Molecular Applicable 8:43 AM [employer] DQA1 - 2 DQA1*05 Not 09/19/2021 DBB8 Molecular Applicable 8:43 AM [employer] Test Method PCR - 09/03/2021 DBB8 Reverse SSOP 4:56 PM [employer] Comment: ----ADDITIONAL INFORMATION---- Molecular HLA typing reported as serolog ical equivalents and low to medium resolution molecular value s. ??For convenience, when not defined in the WHO Nomenclature a laboratory defined serologic equivalent has been provided. CLIA: [id number] ??CLIA Medical Dosimetrist: VALENTINA GOLD MD,PhD Specimen Anatomical Collection Method Collection Time Receive d Time (Source) Location / / Volume Laterality Blood 08/31/2021 10:55 08/31/2021 AM [employer] 10:55 AM [employer] Isidro Arrington, B.Ch. LAB HLA ORDERABLES Performing Organization Address City/State/ZIP Code Phon e Number [facility] - [address] [place] [address] [facility] [address] [place] [address] Laboratories-[address] HLA Class I Typing by Low Resolution, Donor Testing (08/31/2021 10:55 AM [employer]) [facility] Method Time Signature Class I LR [id number] 09/03/2021 DBB8 Donor BETHEL MENDEZ 4:56 PM [employer] A - 1 A11 Not 09/03/2021 DBB8 Equivalent Applicable 4:56 PM [employer] A - 2 A24 Not 09/03/2021 DBB8 Equivalent Applicable 4:56 PM [employer] A - 1 A*11 Not 09/03/2021 DBB8 Molecular Applicable 4:56 PM [employer] A - 2 A*24 Not 09/03/2021 DBB8 Molecular Applicable 4:56 PM [employer] B - 1 B35 Not 09/03/2021 DBB8 Equivalent Applicable 4:56 PM [employer] B - 2 B44 Not 09/03/2021 DBB8 Equivalent Applicable 4:56 PM [employer] B - 1 B*35 Not 09/03/2021 DBB8 Molecular Applicable 4:56 PM [employer] B - 2 B*44 Not 09/03/2021 DBB8 Molecular Applicable 4:56 PM [employer] Bw - 1 Bw6 Not 09/03/2021 DBB8 Equivalent Applicable 4:56 PM [employer] Bw - 2 Bw4 Not 09/03/2021 DBB8 Equivalent Applicable 4:56 PM [employer] C - 1 Cw4 Not 09/03/2021 DBB8 Equivalent Applicable 4:56 PM [employer] C - 2 Cw5 Not 09/03/2021 DBB8 Equivalent Applicable 4:56 PM [employer] C - 1 C*04 Not 09/03/2021 DBB8 Molecular Applicable 4:56 PM [employer] C - 2 C*05 Not 09/03/2021 DBB8 Molecular Applicable 4:56 PM [employer] Test Method PCR - 09/03/2021 DBB8 Reverse SSOP 4:56 PM [employer] Comment: ----ADDITIONAL INFORMATION---- Molecular HLA typing reported as serolog ical equivalents and low to medium resolution molecular value s. ??For convenience, when not defined in the WHO Nomenclature a laboratory defined serologic equivalent has been provided. CLIA: [id number] ??CLIA Medical Dosimetrist: VALENTINA GOLD MD,PhD Specimen Anatomical Collection Method Collection Time Receive d Time (Source) Location / / Volume Laterality Blood 08/31/2021 10:55 08/31/2021 AM [employer] 10:55 AM [employer] Isidro Arrington B.Ch. LAB HLA ORDERABLES Performing Organization Address City/State/ZIP Code Phon e Number [facility] - [address] [place], [place] [address] [facility] [address] [place] [address] Laboratories-[facility] [address] (ABNORMAL) Morphology Evaluation (Special Smear) (07/23/2021 10:44 AM [employer]) Patholo gist Method Time Signature Neutrophilic Segs 79 (H) 50 - 75 % 07/23/2021 DHPM and Bands 12:26 PM [employer] Lymphocytes 8 (L) 18 - 42 % 07/23/2021 DHPM 12:26 PM [employer] Monocytes 2 2 - 11 % 07/23/2021 DHPM 12:26 PM [employer] Eosinophils 1 1 - 3 % 07/23/2021 PM 12:26 PM [employer] Basophils 6 (H) 0 - 2 % 07/23/2021 PM 12:26 PM [employer] Metamyelocytes 1 (H) <1 % 07/23/2021 PM 12:26 PM [employer] Myelocytes 2 (H) <0.5 % 07/23/2021 PM 12:26 PM [employer] Blasts 1 (H) <1 % 07/23/2021 PM 12:26 PM [employer] Nucleated RBC 1 /100 WBC 07/23/2021 PM 12:26 PM [employer] Manual Absolute 2.77 1.56 - 07/23/2021 [facility] Neutrophil Count 6.45 12:26 PM [employer] x10(9)/L Comment: ----ADDITIONAL INFORMATION---- The manual absolute neutrophil count is derived from a manual differential count and therefore is not exactly comparable to the automated absolute halie trophil count. Specimen Anatomical Collection Method Collection Time Receive d Time (Source) Location / / Volume Laterality Blood 07/23/2021 10:44 07/23/2021 AM [employer] 11:18 AM [employer] Janusz Ardon LAB BLOOD ADD-ON Performing Organization Address City/State/ZIP Code Phon e Number [facility] - [address] [place], [place] [address] [place] [address] [facility] [address] [facility] (ABNORMAL) CBC with Differential, Blood (07/23/2021 10:44 AM [employer]) [facility] Method Time Signature Hemoglobin 6.6 (L) 11.6 - 07/23/2021 DTL 15.0 g/dL 11:28 AM [employer] Hematocrit 21.6 (L) 35.5 - 07/23/2021 DTL 44.9 % 11:28 AM [employer] Erythrocytes 2.43 (L) 3.92 - 07/23/2021 DTL 5.13 11:28 AM [employer] x10(12)/L MCV 88.9 78.2 - 07/23/2021 DTL 97.9 fL 11:28 AM [employer] RBC Distrib Width 26.3 (H) 12.2 - 07/23/2021 DTL 16.1 % 11:28 AM [employer] Platelet Count 90 (L) 157 - 371 07/23/2021 DTL x10(9)/L 11:28 AM [employer] Leukocytes 3.5 3.4 - 9.6 07/23/2021 DTL x10(9)/L 12:25 PM [employer] Comment: Results confirmed by smear. Neutrophils SeeComment 1.56 - 6.45 x10(9)/L 07/23/2021 12:25 PM [employer] DTL Comment: Auto-diff results not valid. Se e manual differential. Specimen Anatomical Collection Method Collection Time Receive d Time (Source) Location / / Volume Laterality Blood (Blood, 07/23/2021 10:44 07/23/2021 Venous) AM [employer] 11:18 AM [employer] Janusz Ardon LAB BLOOD ADD-ON Performing Organization Address City/State/ZIP Code Phon e Number [facility] - [address] [place], [place] [address] [facility] [place] [address] Laboratories-[facility] [address] documented in this encounter Visit Diagnoses Diagnosis Myelofibrosis Primary (HCC) documented in this encounter Care Teams Disaster Recovery Coordinator Relationship Specialty Start Date End Date None Reported, Pcp PCP - General Family Medicine 02/16/21 documented as of this encounter
--- OUTSIDE RECORDS SUMMARY | 2022-05-02 12:31 | XMS_ITS | Encounter Summary ---
:1970 Author Organization [facility] Address [address] [place] [address] Care Team Providers Name Role Phone None Reported, Pcp Primary Care Provider Unavailable Reason for Referral Outpatient (Routine) - Closed Specialty Diagnoses / Procedures Referred By Contact Refer red To Contact Diagnoses Myelofibrosis Primary (HCC) Janusz Govea M.B.BZahraaSZahraa [facility] Procedures US Spleen US Abdomen Limited [address] [place] [phone] Referral ID Status Reason Start Date Expiration Date Visits Requ ested Visits Authorized [id number] Closed 07/23/2021 07/23/2022 1 1 ARCH ENVIRONMENTAL ENGINEER Outpatient (Routine) - Closed Specialty Diagnoses / Procedures Referred By Contact Refer red To Contact Hematology Oncology Janusz Govea [place] [facility] M.B.B.S. [address] [place] [phone] Referral ID Status Reason Start Date Expiration Date Visits Requ ested Visits Authorized [id number] Closed 07/23/2021 07/23/2022 1 1 ARCH ENVIRONMENTAL ENGINEER Reason for Visit Outpatient (Routine) - Closed Specialty Diagnoses / Procedures Referred By Contact Refer red To Contact Hematology Oncology Janusz Govea [place] [facility] M.B.B.S. [address] [place] [phone] Referral ID Status Reason Start Date Expiration Date Visits Requ ested Visits Authorized [id number] Closed 07/02/2021 07/02/2022 1 1 Encounter Details Date Type Department Care Team Description 07/23/2021 Office Visit Division of Hematology Xuan, Myelo fibrosis Primary in [facility], (HCC) (Primary Dx) [place] M.B.B.S. 200 [facility] 200 [place] [phone] Social History Tobacco Use Types Packs/Day Years [...] Date Recorded Female 07/24/2021 11:03 AM RESEARCH ENVIRONMENTAL ENGINEER documented as of this encounter Last Filed Vital Signs Vital Sign Reading Time Taken Comments Blood Pressure 104/65 07/23/2021 1:50 PM RESEARCH ENVIRONMENTAL ENGINEER Pulse 71 07/23/2021 1:50 PM RESEARCH ENVIRONMENTAL ENGINEER Temperature 35.9 ??C (96.7 ??F) 07/23/2021 1:50 PM RESEARCH ENVIRONMENTAL ENGINEER Respiratory Rate - - Oxygen Saturation - - Inhaled Oxygen Concentration - - Weight 92.5 kg (204 lb 0.6 oz) 07/23/2021 1:50 PM RESEARCH ENVIRONMENTAL ENGINEER Height 173.3 cm (5' 8.23) 07/23/2021 1:50 PM RESEARCH ENVIRONMENTAL ENGINEER Body Mass Index 30.82 07/23/2021 1:50 PM RESEARCH ENVIRONMENTAL ENGINEER documented in this encounter Progress Notes Janusz [...] size. Evy Foreman. CT CT Job ID: [id number] ARCH ENVIRONMENTAL ENGINEER documented in this encounter Plan of [...] Organization Address City/State/ZIP Code Phon e Number [facility] - [address] [place], [place] [address] [facility] [place] [address] [facility] [address] (ABNORMAL) Comprehensive [...] 10/24/2021 DTL Black/ mL/min/BSA 10:56 AM CDT Bangladeshi Comment: ----ADDITIONAL INFORMATION---- Estimated GFR calculated using [...] Organization Address City/State/ZIP Code Phon e Number [facility] - [address] [place], [place] [address] [facility] [place] [address] [facility] [address] (ABNORMAL) Morphology Evaluation [...] Eosinophils 1 1 - 3 % 10/24/2021 [facility] 11:53 AM CDT Basophils 1 0 - 2 % 10/24/2021 [facility] 11:53 AM CDT Myelocytes 7 (H) <0.5 % 10/24/2021 [facility] 11:53 AM CDT Nucleated RBC 6 /100 WBC 10/24/2021 PM 11:53 AM CDT Manual Absolute 3.08 1.56 - 10/24/2021 [facility] Neutrophil Count 6.45 11:53 AM CDT x10(9)/L Comment: ----ADDITIONAL INFORMATION---- The manual absolute neutrophil count is derived from a manual differential count and therefore is not exactly comparable to the automated absolute halie trophil count. Interpretation Moderate dacrocytes are present. 11:53 AM CDT [facility] Reviewed by: Liz 10/24/2021 11:53 AM CDT [facility] Specimen Anatomical Collection Method Collection Time Receive d Time (Source) Location / / Volume Laterality Blood (Blood, 10/24/2021 9:42 AM 10/25/19 22 Venous) CDT 10:09 AM CDT Janusz Ardon LAB BLOOD ADD-ON Performing Organization Address City/State/ZIP Code Phon e Number [facility] - [address] [place] [address] [place] [address] [facility] [address] [facility] (ABNORMAL) CBC with Differential, Blood (10/24/2021 9:42 AM CDT) [facility] Method Time Signature Hemoglobin 6.8 (L) 11.6 [...] Organization Address City/State/ZIP Code Phon e Number [facility] - [address] [place], [place] [address] [facility] [place] [address] [facility] [address] [place] [address] [facility] [address] documented in this encounter Visit Diagnoses Diagnosis Myelofibrosis Primary (HCC) - Primary Myelofibrosis Primary (HCC) documented in this encounter Care Teams Packing Room Worker Relationship Specialty Start Date End Date None Reported, Pcp PCP - General Family Medicine 02/16/21 documented as of this encounter
--- OUTSIDE RECORDS SUMMARY | 2022-05-02 12:31 | XMS_ITS | Encounter Summary ---
:1970 Author Organization [facility] Address [address] [place] [address] Care Team Providers Name Role Phone None Reported, Pcp Primary Care Provider Unavailable Encounter Details Date Type Department Care Team Description 07/02/2021 Hospital Encounter Department of Benitez Frazier Laboratory Medicine Colette Mata and Pathology, [address] [phone] [place] [address] [place], [place] (Work) [phone] Social History Tobacco Use Types Packs/Day Years [...] at Date Recorded Female 07/24/2021 11:03 AM CHIEF SERVICE DISPATCHER documented as of this encounter Medications at [...] (four) capsule hours as needed. [facility] IRB [id number] Take by mouth. Pt is 0 03/11/2022 alisertib ([id number]) 10 unsure of what this mg DR [...] Routine 07/02/2021 11:01 Results for this AM CHIEF SERVICE DISPATCHER procedure are i n the results section. CBC WITH DIFFERENTIAL, Routine 07/02/2021 11:01 Splenomegaly R esults for this B AM CHIEF SERVICE DISPATCHER Acquired procedure are i n the results section. COMPREHENSIVE Routine 07/02/2021 11:01 Splenomegaly Results fo r this METABOLIC PANEL, S/P AM CHIEF SERVICE DISPATCHER Acquired procedu re are in the results section. documented in this encounter Results (ABNORMAL) Morphology Evaluation (Special Smear) (07/02/2021 11:01 AM CHIEF SERVICE DISPATCHER) Analysis Performed At Patho logist Time Signature Neutrophilic Segs 75 50 - 75 % 07/02/2021 [facility] and Bands 1:21 PM CHIEF SERVICE DISPATCHER Lymphocytes 14 (L) 18 - 42 % 07/02/2021 [facility] 1:21 PM CHIEF SERVICE DISPATCHER Monocytes 3 2 - 11 % 07/02/2021 [facility] 1:21 PM CHIEF SERVICE DISPATCHER Eosinophils 1 1 - 3 % 07/02/2021 [facility] 1:21 PM CHIEF SERVICE DISPATCHER Myelocytes 7 (H) <0.5 % 07/02/2021 [facility] 1:21 PM CHIEF SERVICE DISPATCHER Nucleated RBC 2 /100 WBC 07/02/2021 [facility] 1:21 PM CHIEF SERVICE DISPATCHER Manual Absolute 2.33 1.56 - 07/02/2021 [facility] Neutrophil Count 6.45 1:21 PM CHIEF SERVICE DISPATCHER x10(9)/L Comment: ----ADDITIONAL INFORMATION---- The manual absolute neutrophil count is derived from a manual differential count and therefore is not exactly comparable to the automated absolute halie trophil count. Specimen Anatomical Collection Method Collection Time Receive d Time (Source) Location / / Volume Laterality Blood 07/02/2021 11:01 07/02/2021 AM CHIEF SERVICE DISPATCHER 11:23 AM CHIEF SERVICE DISPATCHER Margy Frazier P.A.-C. LAB BLOOD ADD-ON Performing Organization Address City/State/ZIP Code Phon e Number [facility] - [address] [place], [place] [address] [place] [address] [facility] [address] (ABNORMAL) CBC with Differential, Blood (07/02/2021 11:01 AM CHIEF SERVICE DISPATCHER) Patholo gist Method Time Signature Hemoglobin 7.4 (L) 11.6 - 07/02/2021 DTL 15.0 g/dL 11:45 AM CHIEF SERVICE DISPATCHER Hematocrit 24.1 (L) 35.5 - 07/02/2021 DTL 44.9 % 11:45 AM CHIEF SERVICE DISPATCHER Erythrocytes 2.70 (L) 3.92 - 07/02/2021 DTL 5.13 11:45 AM CHIEF SERVICE DISPATCHER x10(12)/L MCV 89.3 78.2 - 07/02/2021 DTL 97.9 fL 11:45 AM CHIEF SERVICE DISPATCHER RBC Distrib Width 25.5 (H) 12.2 - 07/02/2021 DTL 16.1 % 1:16 PM CHIEF SERVICE DISPATCHER Platelet Count 88 (L) 157 - 371 07/02/2021 DTL x10(9)/L 11:45 AM CHIEF SERVICE DISPATCHER Leukocytes 3.1 (L) 3.4 - 9.6 07/02/2021 DTL x10(9)/L 1:20 PM CHIEF SERVICE DISPATCHER Comment: Results confirmed by smear. Neutrophils SeeComment 1.56 - 6.45 x10(9)/L 07/02/2021 1:20 PM CHIEF SERVICE DISPATCHER DTL Comment: Auto-diff results not valid. Se e manual differential. Specimen Anatomical Collection Method Collection Time Receive d Time (Source) Location / / Volume Laterality Blood (Blood, 07/02/2021 11:01 07/02/2021 Venous) AM CHIEF SERVICE DISPATCHER 11:23 AM CHIEF SERVICE DISPATCHER Margy Frazier P.A.-C. LAB BLOOD ADD-ON Performing Organization Address City/State/ZIP Code Phon e Number [facility] - 200 [place], [place] [address] [facility] [place] [address] [facility] [address] [facility] (ABNORMAL) Comprehensive Metabolic Panel (07/02/2021 11:01 AM CHIEF SERVICE DISPATCHER) Analysis Performed At Patho logist Time Signature Potassium, S 4.6 3.6 - 5.2 07/02/2021 DTL mmol/L 12:06 PM CHIEF SERVICE DISPATCHER Sodium, S 142 135 - 145 07/02/2021 DTL mmol/L 12:06 PM CHIEF SERVICE DISPATCHER Chloride, S 104 98 - 107 07/02/2021 DTL mmol/L 12:06 PM CHIEF SERVICE DISPATCHER Bicarbonate, S 30 (H) 22 - 29 07/02/2021 DTL mmol/L 12:06 PM CHIEF SERVICE DISPATCHER Anion Gap 8 7 - 15 07/02/2021 DTL 12:06 PM CHIEF SERVICE DISPATCHER BUN (Blood Urea 35 (H) 6 - 21 07/02/2021 DTL Nitrogen), S mg/dL 12:06 PM CHIEF SERVICE DISPATCHER Creatinine 1.26 (H) 0.59 - 07/02/2021 DTL 1.04 mg/dL 12:06 PM CHIEF SERVICE DISPATCHER eGFR-Non 49 (L) >=60 07/02/2021 DTL Black/ mL/min/BSA 12:06 PM CHIEF SERVICE DISPATCHER Danish Comment: ----ADDITIONAL INFORMATION---- Estimated GFR calculated using the 2009 CKD_EPI creatinine equation. eGFR-Black/ 56 (L) >=60 mL/min/BSA 2020 12:06 PM CHIEF SERVICE DISPATCHER DTL Comment: ----ADDITIONAL INFORMATION---- Estimated GFR calculated using the 2009 CKD_EPI creatinine equation. Calcium, Total, S 9.0 8.6 - 10.0 mg/dL 07/02/2021 12:0 6 PM CHIEF SERVICE DISPATCHER DTL Glucose, S 122 70 - 140 mg/dL 07/02/2021 12:06 PM CHIEF SERVICE DISPATCHER DTL Protein, Total, S 6.6 6.3 - 7.9 g/dL 07/02/2021 12:06 PM CHIEF SERVICE DISPATCHER DTL Albumin, S 4.5 3.5 - 5.0 g/dL 07/02/2021 12:06 PM CHIEF SERVICE DISPATCHER DTL Aspartate Aminotransferase 25 8 - 43 U/L 07/02/2021 1 2:06 PM CHIEF SERVICE DISPATCHER DTL (AST), S Alkaline Phosphatase, S 44 35 - 104 U/L 07/02/2021 12 :06 PM CHIEF SERVICE DISPATCHER DTL Alanine Aminotransferase (ALT), 10 7 - 45 U/L 021 12:06 PM CHIEF SERVICE DISPATCHER DTL S Bilirubin, Total, S 0.8 <=1.2 mg/dL 07/02/2021 12:06 P M CHIEF SERVICE DISPATCHER DTL Specimen Anatomical Collection Method Collection Time Receive d Time (Source) Location / / Volume Laterality Blood (Blood, 07/02/2021 11:01 07/02/2021 Venous) AM CHIEF SERVICE DISPATCHER 11:38 AM CHIEF SERVICE DISPATCHER Margy Frazier P.A.-C. LAB BLOOD ADD-ON Performing Organization Address City/State/ZIP Code Phon e Number [facility] - [address] [place], [place] [address] [facility] [place] [address] [facility] [address] documented in this encounter Visit Diagnoses Diagnosis Splenomegaly Acquired documented in this encounter Additional Health Concerns Infection Onset Date Last Indicated Resolved Time COVID19 Pending 06/29/2021 07/15/2021 07/15/2021 2:24 PM CHIEF SERVICE DISPATCHER documented as of this encounter Care Teams Scholarship Counselor Relationship Specialty Start Date End Date None Reported, Pcp PCP - General Family Medicine 02/16/21 documented as of this encounter
--- OUTSIDE RECORDS SUMMARY | 2022-05-02 12:31 | XMS_ITS | Encounter Summary ---
:1970 Author Organization [facility] Address [address] [place] [address] Care Team Providers Name Role Phone None Reported, Pcp Primary Care Provider Unavailable Reason for Visit Reason Comments Tooth extraction Encounter Details Date Type Department Care Team Description 07/18/2021 Clinical Communication Division of [facility], Tooth extraction Hematology in [place], [place] M.B.B.S. [address] [place] [address] [place] [phone] Social History Tobacco Use Types Packs/Day Years [...] at Date Recorded Female 07/24/2021 11:03 AM HOSE SEAMER documented as of this encounter Miscellaneous Notes [...] protocol to follow Call back number is [phone] Thank you, Claudia Hematology [facility] MAA SEAMER documented in 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 Care Teams Fleet Operations Manager Relationship Specialty Start Date End Date None Reported, Pcp PCP - General Family Medicine 02/16/21 documented as of this encounter
--- OUTSIDE RECORDS SUMMARY | 2022-05-02 12:31 | XMS_ITS | Encounter Summary ---
:1970 Author Organization [facility] Address [address] [place] [address] Care Team Providers Name Role Phone None Reported, Pcp Primary Care Provider Unavailable Reason for Referral Outpatient (Routine) - Closed Specialty Diagnoses / Procedures Referred By Contact Refer red To Contact [facility] Kat[facility] Hig[facility] [address] [place] [phone] Referral ID Status Reason Start Date Expiration Date Visits Requ ested Visits Authorized [id number] Closed 07/02/2021 07/02/2022 1 1 LA MELTING SUPERVISOR Reason for Visit Appointment Request (Routine) - Closed Specialty Diagnoses / Procedures Referred By Contact Refer red To Contact Hematology Referral ID Status Reason Start Date Expiration Date Visits Requ ested Visits Authorized [id number] Closed 06/06/2021 06/06/2022 1 1 Encounter Details Date Type Department Care Team Description 07/02/2021 Office Visit Division of Hematology Xuan, Myelo fibrosis Primary in [facility], (HCC) (Primary Dx) Bob Higgins.B.S. [address] [place] [address] 200 [place] [phone] Social History Tobacco Use Types Packs/Day Years [...] at Date Recorded Female 07/24/2021 11:03 AM CUPOLA MELTING SUPERVISOR documented as of this encounter Progress [...] have sent in a prescription to the [facility] pharmacy.She will continue on that. She is also being followed up closely with our Cardiology colleagues and is being set up for cardiopulmonary rehab. #3 Followup She will continue with weekly CBC checks at [place]. I plan to see her in clinic on 07/23/2021. Nasrin ForemanS. CT CT Job ID: [id number] LA MELTING SUPERVISOR documented in this encounter Plan of Treatment Scheduled Referrals Name Type Priority Associated Order Schedule Diagnoses Hematology office Outpatient Referral Routine Exp ected: visit (clinic) 07/23/2021, Expires: 09/30/2022 documented as of this encounter Visit Diagnoses Diagnosis Myelofibrosis Primary (HCC) - Primary documented in this encounter Additional Health Concerns Infection Onset Date Last Indicated Resolved Time COVID19 Pending 06/29/2021 07/15/2021 07/15/2021 2:24 PM CUPOLA MELTING SUPERVISOR documented as of this encounter Care Teams Barrel Builder Relationship Specialty Start Date End Date None Reported, Pcp PCP - General Family Medicine 02/16/21 documented as of this encounter
--- OUTSIDE RECORDS SUMMARY | 2022-05-02 12:31 | XMS_ITS | Encounter Summary ---
:1970 Author Organization [facility] Address [address] [place] [address] Care Team Providers Name Role Phone None Reported, Pcp Primary Care Provider Unavailable Reason for Referral Transplant (Routine) - Authorized Specialty Diagnoses / Procedures Referred By Contact Refer red To Contact Transplant Diagnoses Myelofibrosis Primary (HCC) Isidro Zamarripa M.B., [facility] B.. [address] [place] [phone] Referral ID Status Reason Start Date Expiration Date Visits V isits Requested Authorized [id number] Authorized 1 1 SEWER MACHINE Transplant (Routine) - Authorized Specialty Diagnoses / Procedures Referred By Contact Refer red To Contact Transplant [facility] M[facility] [address] [place] [phone] Referral ID Status Reason Start Date Expiration Date Visits V isits Requested Authorized [id number] Authorized 07/23/2021 07/23/2022 1 1 Scheduling Instructions Please coordinate the visit with at hematology visit in upcoming weeks. SEWER MACHINE Reason for Visit Outpatient (Routine) - Pending Review Specialty Diagnoses / Procedures Referred By Contact Refer red To Contact Hematology Diagnoses Myelofibrosis Primary (HCC) Janusz Govea M.B.BZahraaS. [facility] [address] [place], [place] [phone] Referral ID Status Reason Start Date Expiration Date Visits V isits Requested Authorized [id number] Pending 05/31/2021 05/31/2022 1 1 Review Encounter Details Date Type Department Care Team Description 07/23/2021 Comprehensive Visit Division of José Luis Govea M.B.B.S. [address] [place] [phone] Anxiety (Primary Dx); Hematology in Isidro Zamarripa M.B., B.Ch. [address] [place] [phone] Myelofibrosis Primary (HCC) [place], [place] [address] [place] [phone] Social History Tobacco Use Types Packs/Day Years [...] at Date Recorded Female 07/24/2021 11:03 AM SACK SEWER MACHINE documented as of this encounter Consult Notes [...] splenomegaly. She was evaluated by a local offender employment specialist and diagnosed with CALR mutated myelofibrosis. She was initiated on Jakafi at the time of diagnosis however this caused her to be transfusion dependent so it was discontinued. She was seen by Dr. Orta here in february 2016. A myeloproliferative neoplasm panel was done at [facility] on 05/01/2016 that confirmed CALR and revealedthat she was negative for JAK2 V617F. 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 Cytogenetics revealed 13q deletion. NGS revealed CALR [id number]. She most recently was treated per [facility] clinical trial having received her last dose on 08/03/2020. She has been following locally with Dr. Cr and receiving erythropoiesis stimulating agents and transfusion support and felt probably were helpful.. She presented for follow up with Dr. Govea on 06/06/21 due to excess fluid accumulation and increasing pain and was [facility] for further evaluation and clinical optimization. She [...] & Screen Expiration 07/26/2021 23:59 Testing Location [place] CBC with Differential, Blood Collection Time: 07/23/21 [...] that she will have to be in [place] for several weeks to months depending on [...] Signed by: Murphy GantB.S. 07/23/2021 4:34 PM SACK SEWER MACHINE SEWER MACHINE Isidro Zamarripa M.B., B.Ch. - 07/23/2021 3:00 [...] she is getting ongoing benefit from fedratinib. SEWER MACHINE documented in this encounter Plan of Treatment Scheduled Referrals Name Type Priority Associated Diagnoses Order S chedule Transplant - Outpatient Routine Anxiety Expected: Psychiatry and Referral 10/21/2021 Psychology consult (Approxim ate), (clinic) Expires: 10/21/2022 BMT / CAR-T request Outpatient Routine Myelofibrosis Primary Ordered: for prior Referral (HCC) 07/23/2021 authorization [facility]; BMT documented as of this encounter Visit Diagnoses Diagnosis Anxiety - Primary Myelofibrosis Primary (HCC) documented in this encounter Care Teams Door Cutter Relationship Specialty Start Date End Date None Reported, Pcp PCP - General Family Medicine 02/16/21 documented as of this encounter
--- OUTSIDE RECORDS SUMMARY | 2022-05-02 12:31 | XMS_ITS | Encounter Summary ---
:1970 Author Organization [facility] Address [address] [place] [address] Care Team Providers Name Role Phone None Reported, Pcp Primary Care Provider Unavailable Encounter Details Date Type Department Care Team Description 07/23/2021 Infusion Department of Infusion Janusz Govea P ancytopenia (HCC) (Primary Dx); Therapy in [facility] Myelofibrosis (HCC) [address] [place] [phone] Social History Tobacco Use Types Packs/Day Years [...] at Date Recorded Female 07/24/2021 11:03 AM INSURANCE PROFESSIONAL documented as of this encounter Plan of Treatment Pending Results Name Type Priority Associated Diagnoses Date/Ti me Prepare Red Blood Blood Bank Routine Pancytopenia ( HCC) 07/23/2021 10:44 AM Cells, 1 Units Myelofibrosis (HCC) INSURANCE PROFESSIONAL documented as of this encounter Procedures Procedure Name Priority Date/Time Associated Diagnosis Comme nts PREPARE RED BLOOD Routine 07/23/2021 10:44 AM Pancytopen ia (HCC) CELLS INSURANCE PROFESSIONAL Myelofibrosis (HCC) documented in this encounter Visit Diagnoses Diagnosis Pancytopenia (HCC) - Primary Myelofibrosis (HCC) documented in this encounter Care Teams Order Worker Relationship Specialty Start Date End Date None Reported, Pcp PCP - General Family Medicine 02/16/21 documented as of this encounter
--- OUTSIDE RECORDS SUMMARY | 2022-05-02 12:31 | XMS_ITS | Encounter Summary ---
:1970 Author Organization [facility] Address [address] [place] [address] Care Team Providers Name Role Phone None Reported, Pcp Primary Care Provider Unavailable Reason for Referral Transplant (Routine) - Authorized Specialty Diagnoses / Procedures Referred By Contact Refer red To Contact Transplant Surgery / Rst Txp [facility] Transplant [address] [place] [phone] Referral ID Status Reason Start Date Expiration Date Visits V isits Requested Authorized [id number] Authorized 07/24/2021 07/24/2022 1 1 Scheduling Instructions Please schedule 30 minute visit with BMT social service coordinator (Josselyn chaudhry) when/if patient returns for BMT evaluation. UCTION ASSISTANT Reason for Visit Outpatient (Routine) - Pending Review Specialty Diagnoses / Procedures Referred By Contact Refer red To Contact Hematology Diagnoses Myelofibrosis Primary (HCC) Janusz Govea M.B.B.S. [facility] [address] [place] [phone] Referral ID Status Reason Start Date Expiration Date Visits V isits Requested Authorized [id number] Pending 05/31/2021 05/31/2022 1 1 Review Encounter Details Date Type Department Care Team Description 07/24/2021 Clinical Support Sasha Gorman M.B.B.S. [address] [place] [phone] Myelofibrosis Center for Josselyn Howard L.I.C.S.W., M.S.W. 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 - 07/24/2021 11:00 AM CST Transplant Psychosocial Assessment DEMOGRAPHIC INFORMATION SUBJECTIVE Referral Source: Dr. Zamarripa Patient seen for pre-BMT psychosocial assessment. Persons present: Patient and her , Gian Previous Psychosocial Assessment : No Patient's primary care clinic/primary care provider: Dr. Diaz, [facility] Primary language: Kyrgyz For this interview, the patient utilized language [...] reportedunderstanding. ?? The role of the Transplant Exhibit Technician was explained. Where was the interview: Outpatient [...] years older than her and lives in [place]; she reports she is supportive and has driven her around to appointments. Patient stated her parents have . She report she has some other family members who are not supportive. Marital Status / Family / Household: Patient lives with her , Gian, in their apartment in [place], [place]. She endorsed a supportive relationship with him. She has no children. Pets: Cat Terry Education/Employment Highest level of education: High School (9-12) or GED; 11th grade Literacy: Patient is literate Work history: Patient stated she has been on SSDI for about 4-6 months. Patient's plan for extended time off for recovery: Disability Spiritual Practices/Christian/Culture Spirituality / Christian / Culture: Patient stated she believes in [...] cooking and cleaning. Secondary caregiver Name: Clemencia Dobbs Relationship to patient: sister Can they read: [...] that patient will need to be in [place] for about 12 weeks at the time of transplant. Provided information about [employer] [facility] and the [employer] Search as a resource for additional lodging information. [...] cover it. I encouraged them to contact [facility] through [facility] given patient stated her [employer] is Medicaid in order to determine if they have lodging coverage. Pharmacy Pharmacy coverage: [employer] Pharmacy benefits education: Patient was educated and advised to determine the projected range of out of pocket expenses for post-transplant medications, depending on the type of pharmacy coverage provided by insurance, and notify the social service coordinator regarding affordability. ADVANCE DIRECTIVES/LEGAL STATUS Advance Directives: Not Received flavor room worker provided education on the benefits of completing an advance directive and provided them with a copy of Advance Health Care Planning: Making Your Wishes Known?? [id number] bookletand explained to provide [facility] with a copy of the completed advanced directive to include in their medical record should they wish. OBJECTIVE MENTAL HEALTH Psychosocial Risks - The Exhibit Technician advised the patient of the psychosocial risks [...] Patient plans on reaching out to her [facility] regarding lodging coverage for transplant. Caregiver plan: Caregiver plan is in place, see above for specifics. SIPAT: Score: 37 INTERVENTIONS - Completed comprehensive transplant Social Work assessment. - Psychoeducation provided on preparing for transplant. - We reviewed preparations for transplant including, lodging options, caregiving role and requirements, compliance, and financial considerations. - flavor room worker provided supportive counseling regarding the experience of living with a life-threatening illness and the feelings patient has surrounding stem cell transplant. Items reviewed: Social Work folder was reviewed. The following educational materials were provided. - How to Choose a Caregiver: For People Receiving Cellular Therapy ([id number]) - Preparing for Transplant: Body, Mind, and Spirit ([id number]) - [place] [employer] Navigator Notes ([id number]) - [facility] brochure ([id number]) - Patient's Guide to [facility] ([id number]) - Information for Caregivers: Taking Care of Yourself ([id number]) - Coping with Your Loss and Grief ([id number]) - Advance Health Care Planning: Making Your Wishes Known ( [id number]) booklet. PLAN - flavor room worker's business card provided. Contact encouraged as [...] MEDICARE A AND B Secondary insurance/Supplemental: [employer] UCTION ASSISTANT documented in this encounter Plan of Treatment Scheduled Referrals Name Type Priority Associated Order Schedule Diagnoses Transplant Bone Outpatient Referral Routine Expec latonya: marrow office visit 07/11/20 22 (clinic) (Approximate), Expires: 10/22/2022 documented as of this encounter Visit Diagnoses Diagnosis Myelofibrosis Primary (HCC) - Primary documented in this encounter Care Teams Flooring Helper Relationship Specialty Start Date End Date None Reported, Pcp PCP - General Family Medicine 02/16/21 documented as of this encounter
--- OUTSIDE RECORDS SUMMARY | 2022-05-02 12:31 | XMS_ITS | Encounter Summary ---
:1970 Author Organization [facility] Address [address] [place] [address] Care Team Providers Name Role Phone None Reported, Pcp Primary Care Provider Unavailable Reason for Referral Outpatient (Routine) - Authorized Specialty Diagnoses / Procedures Referred By Contact Refer red To Contact Diagnoses Hypertension Pulmonary (HCC) Dyspnea On Exertion Charity Tijerina M.B.B.S. [facility] Procedures NM Lung Perfusion Only NM Lung Ventilation and Perfusion [address] [place] [phone] Referral ID Status Reason Start Date Expiration Date Visits V isits Requested Authorized [id number] Authorized 06/29/2021 06/29/2022 6 6 NAL ANGIOGRAPHER Reason for Visit Outpatient (Routine) - Authorized Specialty Diagnoses / Procedures Referred By Contact Refer red To Contact Diagnoses Hypertension Pulmonary (HCC) Dyspnea On Exertion Charity Tijerina M.B.B.S. [facility] Procedures NM Lung Perfusion Only NM Lung Ventilation and Perfusion [address] [place] [address] Referral ID Status Reason Start Date Expiration Date Visits V isits Requested Authorized [id number] Authorized 06/29/2021 06/29/2022 6 6 Encounter Details Date Type Department Care Team Description 08/01/2021 Hospital Encounter Department of Charity Tijerina, Hyperte nsion Pulmonary (HCC); Radiology, [place] M.B.B.S. 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 tablet, [...] (four) capsule hours as needed. Research IRB [id number] Take by mouth. Pt is 0 03/11/2022 alisertib ([id number]) 10 unsure of what this mg DR [...] s for this ONLY (most inpatients AM RETINAL ANGIOGRAPHER Pulmonary (HCC) procedure are in and all Dyspnea On Exertion the resu lts outpatients) section. documented in this encounter Results NM Lung Perfusion Only (08/01/2021 9:58 AM RETINAL ANGIOGRAPHER) Anatomical Region Laterality Modality Chest, Nuclear Medicine RST LOS, Nuclear Medicine ARZ N/A Nuclear Medicine LOS, Nuclear Medicine FLA LOS, Nuclear Medicine Specimen (Source) Anatomical Collection Method Collection Time Re ceived Time Location / / Volume Laterality 08/01/2021 9:55 AM RETINAL ANGIOGRAPHER Impressions 08/01/2021 10:11 AM RETINAL ANGIOGRAPHER No evidence of acute or chronic pulmonary embolism on planar perfusion imaging. Narrative 08/01/2021 10:11 AM RETINAL ANGIOGRAPHER EXAM: ??NM LUNG PERFUSION ONLY RADIOPHARMACEUTICAL/MEDS: Route: [...] 6.46 millicuries Right Antecubital albumin aggregated AM RETINAL ANGIOGRAPHER injection (Tc-99m MAA) 6.46 millicurie, intravenous, Once, On Fri08/01/21 at 0945, For 1 dose documented in this encounter Care Teams Nut Culler Relationship Specialty Start Date End Date None Reported, Pcp PCP - General Family Medicine 02/16/21 documented as of this encounter
--- OUTSIDE RECORDS SUMMARY | 2022-05-02 12:31 | XMS_ITS | Encounter Summary ---
:1970 Author Organization [facility] Address [address] [place] [address] Care Team Providers Name Role Phone None Reported, Pcp Primary Care Provider Unavailable Reason for Referral Specialty Diagnoses / Procedures Referred By Contact Refer red To Contact Janusz Govea M.B .B.S. [facility] [address] [place] [phone] Referral ID Status Reason Start Date Expiration Date Visits Requ ested Visits Authorized SALESMAN Reason for Visit Reason Comments Set up transfuion Encounter Details Date Type Department Care Team Description 07/23/2021 Clinical Communication Division of Oriana Govea transfuion Hematology in [place], [place] [facility] [address] [place] [address] [place] [phone] Social History Tobacco Use Types Packs/Day Years [...] Date Recorded Female 07/24/2021 11:03 AM CAR SALESMAN documented as of this encounter Miscellaneous Notes Telephone Encounter - Nuvia Rodriguez R.N. - 07/23/2021 1:13 PM CAR SALESMAN Update....she is getting transfused later today, she has full schedule tomorrow. Cintia Carr SALESMAN Addendum Note - Nuvia Rodriguez R.N. - 07/23/2021 11:44 AM CAR SALESMAN Addended by: NUVIA RODRIGUEZ on: 07/23/2021 11:44 AM Modules accepted: Orders SALESMAN Telephone Encounter - Nuvia Rodriguez R.N. - 07/23/2021 11:42 AM CAR SALESMAN Patient hgb is 6.6 today, requesting to be transfused tomorrow here if ok with you I did place orders. She has an appt with you today, there is nothing you need to sign as long as you are ok with the plan. Cintia Carr SALESMAN Telephone Encounter - Nuvia Rodriguez R.N. - 07/23/2021 9:54 AM CAR SALESMAN I did not see a cbc or [...] need to have it drawn again. Cintia Crar SALESMAN Telephone Encounter - Yelena Liang 07/23/2021 9:41 AM CST Patient's called in inquiring if they could set up a transfusion while they are here at [facility] Dr. Govea. Typically the patient gets her transfusions locally but since they are here, he wondered if one could be set up for tomorrow afternoon as they have time between appointments. He would appreciate a return call to discuss if this is possible. Thank you Yelena YOON SALESMAN documented in this encounter Plan of Treatment Scheduled Referrals Name Type Priority Associated Diagnoses Order [facility] Blood Administration Outpatient Routine Myelofibrosis Primar y Expected: in Infusion Therapy; Referral (HCC) 022 (Approximate), Expires: 10/21/2022 documented as of this encounter Results (ABNORMAL) CBC with Differential, Blood (07/23/2021 10:44 AM CAR SALESMAN) [facility] gist Method Time Signature Hemoglobin 6.6 (L) 11.6 - 07/23/2021 DTL 15.0 g/dL 11:28 AM CAR SALESMAN Hematocrit 21.6 (L) 35.5 - 07/23/2021 DTL 44.9 % 11:28 AM CAR SALESMAN Erythrocytes 2.43 (L) 3.92 - 07/23/2021 DTL 5.13 11:28 AM CAR SALESMAN x10(12)/L MCV 88.9 78.2 - 07/23/2021 DTL 97.9 fL 11:28 AM CAR SALESMAN RBC Distrib Width 26.3 (H) 12.2 - 07/23/2021 DTL 16.1 % 11:28 AM CAR SALESMAN Platelet Count 90 (L) 157 - 371 07/23/2021 DTL x10(9)/L 11:28 AM CAR SALESMAN Leukocytes 3.5 3.4 - 9.6 07/23/2021 DTL x10(9)/L 12:25 PM CAR SALESMAN Comment: Results confirmed by smear. Neutrophils SeeComment 1.56 - 6.45 x10(9)/L 07/23/2021 12:25 PM CAR SALESMAN DTL Comment: Auto-diff results not valid. Se e manual differential. Specimen Anatomical Collection Method Collection Time Receive d Time (Source) Location / / Volume Laterality Blood (Blood, 07/23/2021 10:44 07/23/2021 Venous) AM CAR SALESMAN 11:18 AM CAR SALESMAN Janusz Ardon LAB BLOOD ADD-ON Performing Organization Address City/[facility] Code Phon e Number [facility] - 200 [place], [place] [address] [facility] [address] [address] Type and Screen (with reflex Antibody ID) (07/23/2021 10:44 AM CAR SALESMAN) [facility] [employer] Method Time Signature ABORh A Pos Not 07/23/2021 ETRM applicable 1:27 PM CAR SALESMAN Antibody Negative Negative 07/23/2021 ETRM Screen 1:33 PM CAR SALESMAN Type & Screen 07/26/2021 07/23/2021 ETRM Expiration 23:59 1:27 PM CAR SALESMAN Testing [place] DEFAULT 07/23/2021 ETRM Location 11:41 AM CAR SALESMAN Specimen Anatomical Collection Method Collection Time Receive d Time (Source) Location / / Volume Laterality Blood (Blood, 07/23/2021 10:44 07/23/2021 Venous) AM CAR SALESMAN 11:41 AM CAR SALESMAN Janusz AlexandraSZahraa LAB BLOOD BANK TEST ORDERABL ES Performing Organization Address [facility] Phon e Number [facility] - 200 [place], [place] [address] [facility] [place] [address] [address] (ABNORMAL) CBC with Differential, Blood (07/23/2021 10:44 AM CAR SALESMAN) [facility] [employer] Method Time Signature Hemoglobin 6.7 (L) 11.6 - 07/23/2021 DTL 15.0 g/dL 11:29 AM CAR SALESMAN Hematocrit 21.7 (L) 35.5 - 07/23/2021 DTL 44.9 % 11:29 AM CAR SALESMAN Erythrocytes 2.43 (L) 3.92 - 07/23/2021 DTL 5.13 11:29 AM CAR SALESMAN x10(12)/L MCV 89.3 78.2 - 07/23/2021 DTL 97.9 fL 11:29 AM CAR SALESMAN RBC Distrib Width 26.3 (H) 12.2 - 07/23/2021 DTL 16.1 % 11:29 AM CAR SALESMAN Platelet Count 72 (L) 157 - 371 07/23/2021 DTL x10(9)/L 11:29 AM CAR SALESMAN Leukocytes 3.5 3.4 - 9.6 07/23/2021 DTL x10(9)/L 12:34 PM CAR SALESMAN Comment: Results confirmed by smear. Specimen Anatomical Collection Method Collection Time Receive d Time (Source) Location / / Volume Laterality Blood (Blood, 07/23/2021 10:44 07/23/2021 Venous) AM CAR SALESMAN 11:18 AM CAR SALESMAN Janusz Ardon LAB BLOOD ADD-ON Performing Organization Address City/State/ZIP Code Phon e Number [facility] - [address] [place], [place] [address] [facility] [place] [address] Laboratories-[facility] [address] documented in this encounter Visit Diagnoses Diagnosis Myelofibrosis Primary (HCC) - Primary documented in this encounter Care Teams [employer] Crewmember Relationship Specialty Start Date End Date None Reported, Pcp PCP - General Family Medicine 02/16/21 documented as of this encounter
--- OUTSIDE RECORDS SUMMARY | 2022-05-02 12:31 | XMS_ITS | Encounter Summary ---
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 - 06/26/2021 2:51 PM CALENDER WIND UP HELPER I spoke with her , they are at [facility] receiving one unit of RBC's right now. She will continue to have labs done there and transfusions as needed per . Cintia Carr NDER WIND UP HELPER Telephone Encounter - AppleLinda lomax Gene - 06/26/2021 1:34 PM CST Outside labs collected on 06/25/2021 have been received. The fax has been scanned into the patient record via [employer], and the CBC results are as noted below. Hemoglobin: 7.1 Hematocrit: 22.9 WBC: 3.02 ANC: 1.92 Platelets: 87 Please note: Are there additional labs reported on the outside report? Yes NDER WIND UP HELPER documented in 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 Additional Health Concerns Infection Onset Date Last Indicated Resolved Time COVID19 Pending 06/29/2021 07/15/2021 07/15/2021 2:24 PM CALENDER WIND UP HELPER COVID19 Pending 07/22/2021 07/22/2021 07/22/2021 4:53 PM CALENDER WIND UP HELPER documented as of this encounter Care Teams Mortgage Loan Computation Clerk Relationship Specialty Start Date End Date None Reported, Pcp PCP - General Family Medicine 02/16/21 documented as of this encounter
--- OUTSIDE RECORDS SUMMARY | 2022-05-02 12:31 | XMS_ITS | Encounter Summary ---
:1970 Author Organization [facility] Address [address] [place] [address] Care Team Providers Name Role Phone None Reported, Pcp Primary Care Provider Unavailable Reason for Referral Outpatient (Routine) - Authorized Specialty Diagnoses / Procedures Referred By Contact Refer red To Contact Diagnoses Hypertension Pulmonary (HCC) Dyspnea On Exertion Charity Tijerina M.B.BZahraaS. [facility] Procedures NM Lung Perfusion Only NM Lung Ventilation and Perfusion [address] [place] [address] [phone] Referral ID Status Reason Start Date Expiration Date Visits V isits Requested Authorized [id number] Authorized 06/29/2021 06/29/2022 6 6 ER INSTALLER Outpatient (Routine) - Authorized Specialty Diagnoses / Procedures Referred By Contact Refer red To Contact Sleep Medicine Diagnoses Hypertension Pulmonary (HCC) Dyspnea On Exertion Charity Tijerina M.B.B.S. [facility] [address] [place] [phone] Referral ID Status Reason Start Expiration Visits Visits Date Date Requested Authorized [id number] Authorized Specialty 06/29/2022 1 1 Services 1 Required ER INSTALLER Outpatient (Routine) - Closed Specialty Diagnoses / Procedures Referred By Contact Refer red To Contact Diagnoses Hypertension Pulmonary (HCC) Dyspnea On Exertion Charity Tijerina M.B.BZahraaS. [place] Procedures Six Minute Walk [address] [place] [address] Referral ID Status Reason Start Date Expiration Date Visits Requ ested Visits Authorized [id number] Closed 06/29/2021 06/29/2022 1 1 ER INSTALLER Reason for Visit Appointment Request (Routine) - Closed Specialty Diagnoses / Procedures Referred By Contact Refer red To Contact Cardiovascular Disease Diagnoses Hypertension Pulmonary (HCC) Referral ID Status Reason Start Date Expiration Date Visits Requ ested Visits Authorized [id number] Closed 06/11/2021 06/11/2022 1 1 Encounter Details Date Type Department Care Team Description 06/29/2021 Comprehensive Visit Department of [place] Pulmonary (HCC) (Primary Dx); Cardiovascular Charity, Dyspnea On Ex ertion; Medicine in [facility].AundreaB.S. 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 documented as of this encounter Last Filed Vital Signs Vital Sign Reading Time Taken Comments Blood Pressure 111/76 06/29/2021 12:58 PM STOKER INSTALLER Pulse 129 06/29/2021 12:58 PM STOKER INSTALLER Temperature 35.8 ??C (96.4 ??F) 06/29/2021 12:58 PM STOKER INSTALLER Respiratory Rate - - Oxygen Saturation 98% 06/29/2021 12:58 PM STOKER INSTALLER Inhaled Oxygen Concentration - - Weight 92.7 kg (204 lb 5.9 oz) 06/29/2021 12:58 PM STOKER INSTALLER Height 171 cm (5' 7.32) 06/29/2021 12:58 PM STOKER INSTALLER Body Mass Index 31.7 06/29/2021 12:58 PM STOKER INSTALLER documented in this encounter Consult Notes Charity [...] history of pulmonary hypertension. SOCIAL HISTORY A 22-ybqu-sria smoking history, quit in 2012, rare alcohol [...] plan. Nasrin ArellanoS. CT CT Job ID: [id number] ER INSTALLER documented in this encounter Plan of Treatment Scheduled Referrals Name Type Priority Associated Diagnoses Order [facility] Sleep Medicine - Outpatient Referral Routine Hypertension Expe cted: General consult Pulmonary (HCC) 06/29/2021 (clinic) Dyspnea On Exertion (Approxi mate), Expires: 09/27/2022 documented as of this encounter Results NM Lung Perfusion Only (08/01/2021 9:58 AM STOKER INSTALLER) Anatomical Region Laterality Modality Chest, Nuclear Medicine RST LOS, Nuclear Medicine ARZ N/A Nuclear Medicine LOS, Nuclear Medicine FLA LOS, Nuclear Medicine Specimen (Source) Anatomical Collection Method Collection Time Re ceived Time Location / / Volume Laterality 08/01/2021 9:55 AM STOKER INSTALLER Impressions 08/01/2021 10:11 AM STOKER INSTALLER No evidence of acute or chronic pulmonary embolism on planar perfusion imaging. Narrative 08/01/2021 10:11 AM STOKER INSTALLER EXAM: ??NM LUNG PERFUSION ONLY RADIOPHARMACEUTICAL/MEDS: Route: [...] PROCEDURES Six Minute Walk (07/23/2021 9:30 AM STOKER INSTALLER) Specimen (Source) Anatomical Location Collection Method / Collectio n Time Received Time / Laterality Volume Narrative Flip Christensen CRAT - 07/23/2021 9: 30 AM STOKER INSTALLER Flip Christensen CRAT ? 07/23/2021 ??9:55 AM Six Minute Walk Test VITAL SIGNS Height: 171.0 cm. ??Weight: 92.7 kg. ??B [place]: 31.70 KG/M2. IMPRESSION/REPORT/PLAN Patient instructed on six [...] PROCEDURES Pulmonary Function Tests (07/23/2021 8:59 AM STOKER INSTALLER) Analysis Performed At [facility] Time Signature VC MAX POST 3.46 L 07/23/2021 [facility] 1:13 PM STOKER INSTALLER SUITE PostFVC 3.44 L 07/23/2021 [facility] 1:13 PM STOKER INSTALLER SUITE PostFEV1 2.68 L 07/23/2021 [facility] 1:13 PM STOKER INSTALLER SUITE FEV1/FVC POST 77.77 % 07/23/2021 [facility] 1:13 PM STOKER INSTALLER SUITE FEF 25-75 % 2.37 L/s 07/23/2021 [facility] POST 1:13 PM STOKER INSTALLER SUITE PEF POST 5.45 L/s 07/23/2021 [facility] 1:13 PM STOKER INSTALLER SUITE FET POST 8.41 sec 07/23/2021 [facility] 1:13 PM STOKER INSTALLER SUITE DLCO SINGLE 10.75 ml/(min*mm 07/23/2021 [facility] BREATH POST Hg) 1:13 PM STOKER INSTALLER SUITE DLCOC SINGLE 14.34 ml/(min*mm 07/23/2021 [facility] BREATH POST Hg) 1:13 PM STOKER INSTALLER SUITE HB 7.40 g(Hb)/dL 07/23/2021 [facility] 1:13 PM STOKER INSTALLER SUITE VA SINGLE 5.33 L 07/23/2021 [facility] BREATH POST 1:13 PM STOKER INSTALLER SUITE J3TxwNyrm 99.00 % 07/23/2021 [facility] 1:13 PM STOKER INSTALLER SUITE PulseRest 80.00 1/min 07/23/2021 [facility] 1:13 PM STOKER INSTALLER SUITE VC MAX PRE 3.30 L 07/23/2021 [facility] 1:13 PM STOKER INSTALLER SUITE FVC 3.30 L 07/23/2021 [facility] 1:13 PM STOKER INSTALLER SUITE FEV1 2.42 L 07/23/2021 [facility] 1:13 PM STOKER INSTALLER SUITE FEV1/FVC 73.26 % 07/23/2021 [facility] 1:13 PM STOKER INSTALLER SUITE RHZ47-68% 1.81 L/s 07/23/2021 [facility] 1:13 PM STOKER INSTALLER SUITE PEF PRE 5.13 L/s 07/23/2021 [facility] 1:13 PM STOKER INSTALLER SUITE FET PRE 8.44 sec 07/23/2021 [facility] 1:13 PM STOKER INSTALLER SUITE SUBSTANCE POST Albuterol 07/23/2021 [facility] 1:13 PM STOKER INSTALLER SUITE DOSE POST 2 Puff 07/23/2021 [facility] 1:13 PM STOKER INSTALLER SUITE % PRED VC MAX 89 % % 07/23/2021 [facility] 1:13 PM STOKER INSTALLER SUITE FVC% 89 % % 07/23/2021 [facility] 1:13 PM STOKER INSTALLER SUITE FEV1% 83 % % 07/23/2021 [facility] 1:13 PM STOKER INSTALLER SUITE % PRED 92 % % 07/23/2021 [facility] FEV1/FVC 1:13 PM STOKER INSTALLER SUITE % PRED FEF 66 % % 07/23/2021 [facility] 25-75% 1:13 PM STOKER INSTALLER SUITE % PRED PEF 82 % % 07/23/2021 [facility] 1:13 PM STOKER INSTALLER SUITE PRED VC MAX 3.69 07/23/2021 [facility] 1:13 PM STOKER INSTALLER SUITE PRED FVC 3.69 07/23/2021 [facility] 1:13 PM STOKER INSTALLER SUITE PRED FEV 1 2.92 07/23/2021 [facility] 1:13 PM STOKER INSTALLER SUITE PRED FEV1/FVC 79.8 07/23/2021 [facility] 1:13 PM STOKER INSTALLER SUITE PRED FEF 2.73 07/23/2021 [facility] 25-75% 1:13 PM STOKER INSTALLER SUITE PRED PEF 6.2 07/23/2021 [facility] 1:13 PM STOKER INSTALLER SUITE PRED DLCO 22.7 07/23/2021 [facility] 1:13 PM STOKER INSTALLER SUITE PRED DLCOc 22.7 07/23/2021 [facility] 1:13 PM STOKER INSTALLER SUITE Specimen (Source) Anatomical Collection Method Collection Time Re ceived Time Location / / Volume Laterality 07/23/2021 8:59 AM STOKER INSTALLER Narrative This result has an attachment that is no t available. Charity ArringtonB.S. PFT ORDERABLES Performing Organization Address City/State/ZIP Code Phon e Number [facility] [address] Cyclic Citrullinated Peptide Antibodies, IgG (07/23/2021 8:38 AM STOKER INSTALLER) Analysis Performed At Patho logist Time Signature Cyclic <15.6 <20.0 07/24/2021 [facility] Citrullinated (Negative) 11:18 AM STOKER INSTALLER Peptide Ab, S U Specimen Anatomical Collection Method Collection Time Receive d Time (Source) Location / / Volume Laterality Blood (Blood, 07/23/2021 8:38 AM 07/23/19 2:06 Venous) STOKER INSTALLER PM STOKER INSTALLER Charity HayesB.B.S. LAB BLOOD ADD-ON Performing Organization Address City/State/ZIP Code Phon e Number [facility] [address] [facility] [place] [phone] SU[address] CENTER [facility] [place] [address] Laboratory Medicine and Pathology [address] [place] [address] Dr. TORRES GEMA (Antinuclear Antibodies) (07/23/2021 8:38 AM STOKER INSTALLER) athologist Signature Antinuclear Ab, 0.3 <=1.0 07/23/2021 [facility] S (Negative) 9:34 PM STOKER INSTALLER U Comment: ----ADDITIONAL INFORMATION---- Method: Enzyme-linked immunoassay using HEp-2 nuclear extract supplemented with purified antig ens. Specimen Anatomical Collection Method Collection Time Receive d Time (Source) Location / / Volume Laterality Blood (Blood, 07/23/2021 8:38 AM 07/23/19 2:06 Venous) STOKER INSTALLER PM STOKER INSTALLER Charity Ardon LAB BLOOD ADD-ON Performing Organization Address City/State/ZIP Code Phon e Number [place] [id number] [place] [phone] SUPPORT [facility] [place] [address] Laboratory Medicine and Pathology [address] [place] [address] Dr. TORRES documented in this encounter Visit Diagnoses Diagnosis Hypertension Pulmonary (HCC) - Primary Dyspnea On Exertion Regurgitation Tricuspid Failure Heart Right (HCC) Hypertension Pulmonary (HCC) Dyspnea On Exertion Hypertension Pulmonary (HCC) Dyspnea On Exertion documented in this encounter Additional Health Concerns Infection Onset Date Last Indicated Resolved Time COVID19 Pending 06/29/2021 07/15/2021 07/15/2021 2:24 PM STOKER INSTALLER documented as of this encounter Care Teams Enforcement Manager Relationship Specialty Start Date End Date None Reported, Pcp PCP - General Family Medicine 02/16/21 documented as of this encounter
--- OUTSIDE RECORDS SUMMARY | 2022-05-02 12:31 | XMS_ITS | Encounter Summary ---
:1970 Author Organization [facility] Address [address] [place] [address] Care Team Providers Name Role Phone None Reported, Pcp Primary Care Provider Unavailable Reason for Referral Outpatient (Routine) - Authorized Specialty Diagnoses / Procedures Referred By Contact Refer red To Contact Hematology [facility], B.Ch. [address] [place] [phone] Referral ID Status Reason Start Date Expiration Date Visits V isits Requested Authorized [id number] Authorized 07/23/2021 07/23/2022 1 1 Scheduling Instructions Please coordinate with return visit to mitch Govea in approximately 2 months please. Thank you PRESS OPERATOR Encounter Details Date Type Department Care Team Description 07/23/2021 Orders Only Division of Hematology in Isidro Zamarripa M.B.[place], [place] B.Ch. 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
--- OUTSIDE RECORDS SUMMARY | 2022-05-02 12:31 | XMS_ITS | Encounter Summary ---
:1970 Author Organization [facility] Address [address] [place] [address] Care Team Providers Name Role Phone None Reported, Pcp Primary Care Provider Unavailable Reason for Referral Outpatient (Routine) - Closed Specialty Diagnoses / Procedures Referred By Contact Refer red To Contact Diagnoses Hypertension Pulmonary (HCC) Dyspnea On Exertion Charity Tijerina M.B.B.S. [facility] Procedures Six Minute Walk [address] [place] [phone] Referral ID Status Reason Start Date Expiration Date Visits Requ ested Visits Authorized [id number] Closed 06/29/2021 06/29/2022 1 1 NG MACHINE FEEDER Reason for Visit Outpatient (Routine) - Closed Specialty Diagnoses / Procedures Referred By Contact Refer red To Contact Diagnoses Hypertension Pulmonary (HCC) Dyspnea On Exertion Charity Tijerina M.B.B.S. [facility] Procedures Six Minute Walk [address] [place] [phone] Referral ID Status Reason Start Date Expiration Date Visits Requ ested Visits Authorized [id number] Closed 06/29/2021 06/29/2022 1 1 Encounter Details Date Type Department Care Team Description 07/23/2021 Hospital Encounter Department of Cardiac Chariyt Tijerina, Hypertension Pulmonary (HCC); Rehabilitation in M.B.B.S. 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 Research IRB [id number] Take by mouth. Pt is 0 03/11/2022 alisertib ([id number]) 10 unsure of what this mg DR [...] SpO2(%): 99 % Other symptoms comments: None NG MACHINE FEEDER documented in this encounter Plan of Treatment Not on filedocumented as of this encounter Procedures Procedure Name Priority Date/Time Associated Diagnosis Comme nts 6 MINUTE WALK Routine 07/23/2021 9:30 AM Hypertension Pulmonar y Results for this DYEING MACHINE FEEDER (HCC) procedure are in Dyspnea On Exertion the resu lts section. documented in this encounter Results Six Minute Walk (07/23/2021 9:30 AM DYEING MACHINE FEEDER) Specimen (Source) Anatomical Location Collection Method / Collectio n Time Received Time / Laterality Volume Narrative Flip Christensen CRAT - 07/23/2021 9: 30 AM DYEING MACHINE FEEDER Flip Christensen CRAT ? 07/23/2021 ??9:55 AM Six Minute Walk Test VITAL SIGNS Height: 171.0 cm. ??Weight: 92.7 kg. ??B [place]: 31.70 KG/M2. IMPRESSION/REPORT/PLAN Patient instructed on six [...] Exertion documented in this encounter Care Teams Synthetic Gem Press Operator Relationship Specialty Start Date End Date None Reported, Pcp PCP - General Family Medicine 02/16/21 documented as of this encounter
--- OUTSIDE RECORDS SUMMARY | 2022-05-02 12:31 | XMS_ITS | Encounter Summary ---
:1970 Author Organization [facility] Address [address] [place] [address] Care Team Providers Name Role Phone None Reported, Pcp Primary Care Provider Unavailable Encounter Details Date Type Department Care Team Description 06/20/2021 Clinical Communication Division of Hematology [facility] in [facility] M.B.B.S. 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 - 06/21/2021 3:12 PM SEARCH MARKETING COORDINATOR Jocelyne at Dr. Schmitt called back and said patient is now being followed at [facility] for labsand transfusions. I spoke with her and her and they are following with Dr. Boyce in [place]. He reports she had labs on Friday and received RBC's on Friday. I looked in CE and we do not have access to the records. I let them know this and asked them to sign a release so we could view thesein CE. Her said it is a [facility] facility, but I do not see anything in the chart.She has an appointment and labs with Dr. Boyce tomorrow so is receiving follow up. I asked him to call us with contact information so we can get the records faxed to us if they do not appear in CE after he signs the r elease of information. I will see if the assistant secretary can inquire about getting authorization for this also. CH MARKETING COORDINATOR Telephone Encounter - Mary Ann Shaver R.N. - 06/21/2021 10:23 AM SEARCH MARKETING COORDINATOR I spoke with Jocelyne and stated patient [...] cancelled stating they were being followed my [facility]. I told her patient needs to follow [...] if patient is refusing local followup care. CH MARKETING COORDINATOR Telephone Encounter - Mary Ann Shaver R.N. - 06/21/2021 9:57 AM SEARCH MARKETING COORDINATOR Anything specific I need to update her about? Thanks, Cintia CH MARKETING COORDINATOR Telephone Encounter - Margy Proctor - 06/20/2021 9:34 AM SEARCH MARKETING COORDINATOR Name of caller: Jennifer Dobbs Reason for call: Jocelyne is needing an updated plan for Mrs. Dobbs. Please give her a call when convenient. Call back number is [phone]. Is it okay to leave a voicemail on answering machine? No. Is it okay to send a patient online message with your reply? No. Thank you, Aydee YOON CH MARKETING COORDINATOR documented in 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 Care Teams Fur Sewer Relationship Specialty Start Date End Date None Reported, Pcp PCP - General Family Medicine 02/16/21 documented as of this encounter
--- OUTSIDE RECORDS SUMMARY | 2022-05-02 12:32 | XMS_ITS | Encounter Summary ---
:1970 Author Organization [facility] Address [address] [place] [address] Care Team Providers Name Role Phone None Reported, Pcp Primary Care Provider Unavailable Reason for Referral Specialty Diagnoses / Procedures Referred By Contact Refer red To Contact Laurita Reyes P .A.-C., M.S. [address] [phone] Referral ID Status Reason Start Date Expiration Date Visits Requ ested Visits Authorized utpatient (Routine) - Closed Specialty Diagnoses / Procedures Referred By Contact Refer red To Contact Hematology Oncology Laurita Reyes [facility] Nikki, M.S. [address] [place] [phone] Referral ID Status Reason Start Date Expiration Date Visits Requ ested Visits Authorized [id number] Closed 06/11/2021 06/11/2022 1 1 IC SOURCER Reason for Visit Outpatient (Routine) - Closed Specialty Diagnoses / Procedures Referred By Contact Refer red To Contact Hematology Oncology Laurita Reyes [facility] Nikki, M.S. [address] [place] [phone] Referral ID Status Reason Start Date Expiration Date Visits Requ ested Visits Authorized [id number] Closed 06/11/2021 06/11/2022 1 1 Encounter Details Date Type Department Care Team Description 06/12/2021 Hospital Encounter [facility] Reyes, Myelofibr osis Primary (HCC); Hospital, [employer] [place] Hi Ov erload Unspecified [place], [facility] Nikki M.S. [facility], [address] [facility] [address] [place], [place] [phone] (Work) [phone] Social History Tobacco Use Types Packs/Day Years [...] at Date Recorded Female 07/24/2021 11:03 AM FABRIC SOURCER documented as of this encounter Last Filed Vital Signs Vital Sign Reading Time Taken Comments Blood Pressure 123/71 06/12/2021 9:26 AM FABRIC SOURCER Pulse 119 06/12/2021 9:26 AM FABRIC SOURCER Temperature 36.9 ??C (98.4 ??F) 06/12/2021 9:26 AM FABRIC SOURCER Respiratory Rate 20 06/12/2021 9:26 AM FABRIC SOURCER Oxygen Saturation - - Inhaled Oxygen Concentration - - Weight 96.5 kg (212 lb 11.9 oz) 06/12/2021 9:26 AM FABRIC SOURCER Height - - Body Mass Index 33.99 06/06/2021 8:04 PM FABRIC SOURCER documented in this encounter Medications at Time [...] Care Team: Janusz Govea M.B.B.SZahraa as Primary Launchman (Hematology) SUBJECTIVE CHIEF COMPLAINT / REASON FOR [...] Patient has gotten approval and plans to case picker and start fedratinib today - Requires CBC and CMP within one week of starting medication (will be completed in [place]) - No transfusions required today - Requires diuresis with transfusions - BMT consult scheduled 07/24/21, HLA typing completed 06/07 - Patient has labs and appointment with Dr. Boyce in [facility] [facility] on 06/15 and will be [...] Hematology 07/23/2021 3:00 PM [facility] [address] [place] [address] Hematology 07/24/2021 7:30 AM Purvi Davis L.I.C.S.W., M.S.W. Transplant 09/04/2021 2:30 PM Carlos Manuel Johnson M.D. Sleep Medicine For appointment details refer to your Patient Appointment Guide. IC SOURCER documented in this encounter Plan of Treatment [...] AM Result s for this (SPECIAL SMEAR) FABRIC SOURCER procedure ar e in the results section. CBC NO CALL BACK, Routine 06/12/2021 9:28 AM Myelofibrosis Nicole kendra Results for this REFLEX T/S FABRIC SOURCER (HCC) procedure are i n the results section. URIC ACID, S/P Routine 06/12/2021 9:28 AM Myelofibrosis Primar y Results for this FABRIC SOURCER (HCC) procedure are i n the results section. PHOSPHORUS Routine 06/12/2021 9:28 AM Myelofibrosis Primary Results for this (INORGANIC), S FABRIC SOURCER (HCC) procedure are in the results section. BASIC METABOLIC Routine 06/12/2021 9:28 AM Myelofibrosis Prima ry Results for this PANEL, S/P FABRIC SOURCER (HCC) procedure are i n the results section. documented in this encounter Results (ABNORMAL) Morphology Evaluation (Special smear) (06/12/2021 9:28 AM FABRIC SOURCER) [facility] Method Time Signature Neutrophilic Segs 81 (H) 50 - 75 % 06/12/2021 DHPM and Bands 10:41 AM FABRIC SOURCER Lymphocytes 10 (L) 18 - 42 % 06/12/2021 DHPM 10:41 AM FABRIC SOURCER Monocytes 2 2 - 11 % 06/12/2021 DHPM 10:41 AM FABRIC SOURCER Metamyelocytes 1 (H) <1 % 06/12/2021 DHPM 10:41 AM FABRIC SOURCER Myelocytes 6 (H) <0.5 % 06/12/2021 DHPM 10:41 AM FABRIC SOURCER Nucleated RBC 3 /100 WBC 06/12/2021 DHPM 10:41 AM FABRIC SOURCER Manual Absolute 2.84 1.56 - 06/12/2021 DHPM Neutrophil Count 6.45 10:41 AM FABRIC SOURCER x10(9)/L Comment: ----ADDITIONAL INFORMATION---- The manual absolute neutrophil count is derived from a manual differential count and therefore is not exactly comparable to the automated absolute halie trophil count. Specimen Anatomical Collection Method Collection Time Receive d Time (Source) Location / / Volume Laterality Blood 06/12/2021 9:28 AM 9:41 FABRIC SOURCER AM FABRIC SOURCER Laurita Reyes P.A.-C., M.S. LAB PATHOLOGY/CYTOLOGY ORDERABLES Performing Organization Address City/[facility] Phon e Number [place] [phone] [address] [place] [address] Laboratories[address] Uric Acid (06/12/2021 9:28 AM FABRIC SOURCER) athologist Signature Uric Acid, S 5.6 2.7 - 6.1 06/12/2021 DTL mg/dL 12:19 PM FABRIC SOURCER Specimen Anatomical Collection Method Collection Time Receive d Time (Source) Location / / Volume Laterality Blood (Blood, 06/12/2021 9:28 AM 06/12/20 21 Venous) FABRIC SOURCER 10:18 AM FABRIC SOURCER Laurita Reyes P.A.-C., M.S. LAB BLOOD ADD-ON Performing Organization Address [facility] Phon e Number [place] [phone] [facility] DTL [address] (ABNORMAL) Phosphorus Inorganic (06/12/2021 9:28 AM FABRIC SOURCER) athologist Signature Phosphorus 4.6 (H) 2.5 - 4.5 06/12/2021 DTL (Inorganic), S mg/dL 12:19 PM FABRIC SOURCER Specimen Anatomical Collection Method Collection Time Receive d Time (Source) Location / / Volume Laterality Blood (Blood, 06/12/2021 9:28 AM 06/12/20 21 Venous) FABRIC SOURCER 10:18 AM FABRIC SOURCER Laurita Reyes P.A.-C., M.S. LAB BLOOD ADD-ON Performing Organization Address City/[facility] Phon e Number [facility] - 200 [place], [place] [address] [facility] [place] [address] Laboratories-[facility] 200 [facility] (ABNORMAL) Basic Metabolic Panel (06/12/2021 9:28 AM FABRIC SOURCER) Analysis Performed At Patho logist Time Signature Potassium, S 5.0 3.6 - 5.2 06/12/2021 DTL mmol/L 12:19 PM FABRIC SOURCER Sodium, S 143 135 - 145 06/12/2021 DTL mmol/L 12:19 PM FABRIC SOURCER Chloride, S 100 98 - 107 06/12/2021 DTL mmol/L 12:19 PM FABRIC SOURCER Bicarbonate, S 33 (H) 22 - 29 06/12/2021 DTL mmol/L 12:19 PM FABRIC SOURCER Anion Gap 10 7 - 15 06/12/2021 DTL 12:19 PM FABRIC SOURCER BUN (Blood Urea 36 (H) 6 - 21 06/12/2021 DTL Nitrogen), S mg/dL 12:19 PM FABRIC SOURCER Creatinine 1.21 (H) 0.59 - 06/12/2021 DTL 1.04 mg/dL 12:19 PM FABRIC SOURCER eGFR-Non 51 (L) >=60 06/12/2021 DTL Black/ mL/min/BSA 12:19 PM FABRIC SOURCER Cameroonian Comment: ----ADDITIONAL INFORMATION---- Estimated GFR calculated using the 2009 CKD_EPI creatinine equation. eGFR-Black/ 59 (L) >=60 mL/min/BSA 2020 12:19 PM FABRIC SOURCER DTL Comment: ----ADDITIONAL INFORMATION---- Estimated GFR calculated using the 2009 CKD_EPI creatinine equation. Calcium, Total, S 9.2 8.6 - 10.0 mg/dL 06/12/2021 12:1 9 PM FABRIC SOURCER DTL Glucose, S 141 (H) 70 - 140 mg/dL 06/12/2021 12:19 PM FABRIC SOURCER DTL Specimen Anatomical Collection Method Collection Time Receive d Time (Source) Location / / Volume Laterality Blood (Blood, 06/12/2021 9:28 AM 06/12/20 21 Venous) FABRIC SOURCER 10:18 AM FABRIC SOURCER Laurita Reyes P.A.-C., M.S. LAB BLOOD ADD-ON Performing Organization Address City/State/ZIP Code Phon e Number [facility] - 200 [place], [place] [address] [facility] [place] [address] Laboratories-[address] (ABNORMAL) CBC no call back, reflex T/S HGB <8 (06/12/2021 9:28 AM FABRIC SOURCER) [facility] Method Time Signature Hemoglobin 8.6 (L) 11.6 - 06/12/2021 DHPM 15.0 g/dL 9:53 AM FABRIC SOURCER Hematocrit 27.7 (L) 35.5 - 06/12/2021 DHPM 44.9 % 9:53 AM FABRIC SOURCER Erythrocytes 3.26 (L) 3.92 - 06/12/2021 DHPM 5.13 9:53 AM FABRIC SOURCER x10(12)/L MCV 85.0 78.2 - 06/12/2021 DHPM 97.9 fL 9:53 AM FABRIC SOURCER RBC Distrib Width 22.3 (H) 12.2 - 06/12/2021 DHPM 16.1 % 9:53 AM FABRIC SOURCER Platelet Count 109 (L) 157 - 371 06/12/2021 DHPM x10(9)/L 9:53 AM FABRIC SOURCER Leukocytes 3.5 3.4 - 9.6 06/12/2021 PM x10(9)/L 10:40 AM FABRIC SOURCER Comment: Results confirmed by smear. Neutrophils SeeComment 1.56 - 6.45 x10(9)/L 06/12/2021 10:40 AM FABRIC SOURCER DHPM Comment: Auto-diff results not valid. Se e manual differential. Specimen Anatomical Collection Method Collection Time Receive d Time (Source) Location / / Volume Laterality Blood (Blood, 06/12/2021 9:28 AM 06/12/20 9:41 Venous) FABRIC SOURCER AM FABRIC SOURCER Laurita Reyes P.A.-C., M.S. LAB BLOOD NON ADD-ON Performing Organization Address City/State/ZIP Code Phon e Number [facility] - 200 [place] [id number] [place] [address] [facility]-[address] documented in this encounter Visit Diagnoses Diagnosis Myelofibrosis Primary (HCC) - Primary Fluid Overload Unspecified Myelofibrosis (HCC) Pancytopenia (HCC) Fluid Overload Unspecified Splenomegaly Acquired Hyperphosphatemia Abdominal Pain Failure Heart Right (HCC) Hypertension Pulmonary (HCC) documented in this encounter Care Teams Director Of Pulmonary Unit Relationship Specialty Start Date End Date None Reported, Pcp PCP - General Family Medicine 02/16/21 documented as of this encounter
--- OUTSIDE RECORDS SUMMARY | 2022-05-02 12:32 | XMS_ITS | Encounter Summary ---
:1970 Author Organization [facility] Address [address] [place] [address] Care Team Providers Name Role Phone None Reported, Pcp Primary Care Provider Unavailable Reason for Referral Outpatient (Routine) - Closed Specialty Diagnoses / Procedures Referred By Contact Refer red To Contact [facility]ology [facility] [address] [place] [phone] Referral ID Status Reason Start Date Expiration Date Visits Requ ested Visits Authorized [id number] Closed 06/11/2021 06/11/2022 1 1 CONTAINER FILLER Encounter Details Date Type Department Care Team Description 06/11/2021 Orders Only [facility], Laurita Reyes [facility] Primary Yarsanism [place], Nikki Baez, M. S. ([facility]) (Primary Dx) [facility], 200 [facility] Seventh Floor [place], [place] [address] [address] [place], [place] [phone] [phone] (Work) [phone] Social History Tobacco Use Types Packs/Day Years [...] at Date Recorded Female 07/24/2021 11:03 AM TON CONTAINER FILLER documented as of this encounter Plan of Treatment Scheduled Referrals Name Type Priority Associated Order Schedule Diagnoses Hematology office Outpatient Referral Routine Exp ected: visit (clinic) 06/12/2021, Expires: 09/10/2022 documented as of this encounter Results Uric Acid (06/12/2021 9:28 AM TON CONTAINER FILLER) P athologist Signature Uric Acid, S 5.6 2.7 - 6.1 06/12/2021 DTL mg/dL 12:19 PM TON CONTAINER FILLER Specimen Anatomical Collection Method Collection Time Receive d Time (Source) Location / / Volume Laterality Blood (Blood, 06/12/2021 9:28 AM 06/12/20 Venous) TON CONTAINER FILLER 10:18 AM TON CONTAINER FILLER Laurita Reyes P.A.-C., M.S. LAB BLOOD ADD-ON Performing Organization Address City/[facility] Phon e Number [facility] - [address] (ABNORMAL) Phosphorus Inorganic (06/12/2021 9:28 AM TON CONTAINER FILLER) P athologist Signature Phosphorus 4.6 (H) 2.5 - 4.5 06/12/2021 DTL (Inorganic), S mg/dL 12:19 PM TON CONTAINER FILLER Specimen Anatomical Collection Method Collection Time Receive d Time (Source) Location / / Volume Laterality Blood (Blood, 06/12/2021 9:28 AM 06/12/20 Venous) TON CONTAINER FILLER 10:18 AM TON CONTAINER FILLER Laurita Reyes P.A.-C., M.S. LAB BLOOD ADD-ON Performing Organization Address City/[facility] Phon e Number [facility] - [address] (ABNORMAL) Basic Metabolic Panel (06/12/2021 9:28 AM TON CONTAINER FILLER) Analysis Performed At Patho logist Time Signature Potassium, S 5.0 3.6 - 5.2 06/12/2021 DTL mmol/L 12:19 PM TON CONTAINER FILLER Sodium, S 143 135 - 145 06/12/2021 DTL mmol/L 12:19 PM TON CONTAINER FILLER Chloride, S 100 98 - 107 06/12/2021 DTL mmol/L 12:19 PM TON CONTAINER FILLER Bicarbonate, S 33 (H) 22 - 29 06/12/2021 DTL mmol/L 12:19 PM TON CONTAINER FILLER Anion Gap 10 7 - 15 06/12/2021 DTL 12:19 PM TON CONTAINER FILLER BUN (Blood Urea 36 (H) 6 - 21 06/12/2021 DTL Nitrogen), S mg/dL 12:19 PM TON CONTAINER FILLER Creatinine 1.21 (H) 0.59 - 06/12/2021 DTL 1.04 mg/dL 12:19 PM TON CONTAINER FILLER eGFR-Non 51 (L) >=60 06/12/2021 DTL Black/ mL/min/BSA 12:19 PM TON CONTAINER FILLER Peruvian Comment: ----ADDITIONAL INFORMATION---- Estimated GFR calculated using the 2009 CKD_EPI creatinine equation. eGFR-Black/ 59 (L) >=60 mL/min/BSA 2020 12:19 PM TON CONTAINER FILLER DTL Comment: ----ADDITIONAL INFORMATION---- Estimated GFR calculated using the 2009 CKD_EPI creatinine equation. Calcium, Total, S 9.2 8.6 - 10.0 mg/dL 06/12/2021 12:1 9 PM TON CONTAINER FILLER DTL Glucose, S 141 (H) 70 - 140 mg/dL 06/12/2021 12:19 PM TON CONTAINER FILLER DTL Specimen Anatomical Collection Method Collection Time Receive d Time (Source) Location / / Volume Laterality Blood (Blood, 06/12/2021 9:28 AM 06/12/20 Venous) TON CONTAINER FILLER 10:18 AM TON CONTAINER FILLER Laurita Reyes P.A.-C., M.S. LAB BLOOD ADD-ON Performing Organization Address City/State/ZIP Code Phon e Number [facility] - [address] [place], [place] [address] [facility] [place] [address] Laboratories-[facility] [address] (ABNORMAL) CBC no call back, reflex T/S HGB <8 (06/12/2021 9:28 AM TON CONTAINER FILLER) [facility] gist Method Time Signature Hemoglobin 8.6 (L) 11.6 - 06/12/2021 DHPM 15.0 g/dL 9:53 AM TON CONTAINER FILLER Hematocrit 27.7 (L) 35.5 - 06/12/2021 DHPM 44.9 % 9:53 AM TON CONTAINER FILLER Erythrocytes 3.26 (L) 3.92 - 06/12/2021 DHPM 5.13 9:53 AM TON CONTAINER FILLER x10(12)/L MCV 85.0 78.2 - 06/12/2021 DHPM 97.9 fL 9:53 AM TON CONTAINER FILLER RBC Distrib Width 22.3 (H) 12.2 - 06/12/2021 DHPM 16.1 % 9:53 AM TON CONTAINER FILLER Platelet Count 109 (L) 157 - 371 06/12/2021 DHPM x10(9)/L 9:53 AM TON CONTAINER FILLER Leukocytes 3.5 3.4 - 9.6 06/12/2021 DHPM x10(9)/L 10:40 AM TON CONTAINER FILLER Comment: Results confirmed by smear. Neutrophils SeeComment 1.56 - 6.45 x10(9)/L 06/12/2021 10:40 AM TON CONTAINER FILLER DHPM Comment: Auto-diff results not valid. Se e manual differential. Specimen Anatomical Collection Method Collection Time Receive d Time (Source) Location / / Volume Laterality Blood (Blood, 06/12/2021 9:28 AM 06/12/20 9:41 Venous) TON CONTAINER FILLER AM TON CONTAINER FILLER Laurita Reyes P.A.-C., M.S. LAB BLOOD NON ADD-ON Performing Organization Address City/State/ZIP Code Phon e Number [facility] - [address] [place], [place] [address] [place] [address] Laboratories-[facility] [address] documented in this encounter Visit Diagnoses Diagnosis Myelofibrosis Primary (HCC) - Primary documented in this encounter Care Teams Provider Scribe Relationship Specialty Start Date End Date None Reported, Pcp PCP - General Family Medicine 02/16/21 documented as of this encounter
--- OUTSIDE RECORDS SUMMARY | 2022-05-02 12:32 | XMS_ITS | Encounter Summary ---
:1970 Author Organization [facility] Address [address] [place] [address] Care Team Providers Name Role Phone None Reported, Pcp Primary Care Provider Unavailable Encounter Details Date Type Department Care Team Description 06/11/2021 Specialty Pharmacy [facility] Alec Myelofibr osis (HCC) Pharmacy Cathi Barlow, (Primary Dx) [id number] Pharm.D., R.P h. [address] [phone] Social History Tobacco Use Types Packs/Day Years [...] at Date Recorded Female 07/24/2021 11:03 AM TAPER AND FLOATER documented as of this encounter Miscellaneous Notes [...] a woman. ??? Educational resource/decision support tools: [employer] The caregiver was attentive and ready to [...] sensitivity, medication and health history considered at elementary school counselor (renal function if available). To optimize [...] apparent. Patient is eligible for service through [facility]. 2. Potential drug-drug interactions 1. [...] The patient has decided to use the [facility]. This patient does not meet the definition of high risk by [facility] definition. Follow-up: 1 month(s) Cathi Michael, Pharm.D., R.Ph. R AND FLOATER documented in 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 Care Teams Diesel Engine Specialist Relationship Specialty Start Date End Date None Reported, Pcp PCP - General Family Medicine 02/16/21 documented as of this encounter
--- OUTSIDE RECORDS SUMMARY | 2022-05-02 12:32 | XMS_ITS | Encounter Summary ---
:1970 Author Organization [facility] Address [address] [place] [id number] Care Team Providers Name Role Phone None Reported, Pcp Primary Care Provider Unavailable Encounter Details Date Type Department Care Team Description 06/06/2021 - Hospital Encounter [facility] Ijeoma Hickman M.D. [address] [place] [phone] Myelofibrosis (HCC) 06/11/2021 Hospital, Ronny Weber M.D. [address] [place] [phone] (Primary Dx) [facility] [place] [facility] [place] [address] [place] [phone] Social History Tobacco Use Types Packs/Day Years [...] at Date Recorded Female 07/24/2021 11:03 AM ECONOMICS TEACHER documented as of this encounter Last Filed Vital Signs Vital Sign Reading Time Taken Comments Blood Pressure 121/73 06/11/2021 3:43 PM ECONOMICS TEACHER Pulse 116 06/11/2021 3:43 PM ECONOMICS TEACHER Temperature 36.9 ??C (98.4 ??F) 06/11/2021 3:43 PM ECONOMICS TEACHER Respiratory Rate 16 06/11/2021 3:43 PM ECONOMICS TEACHER Oxygen Saturation 96% 06/11/2021 3:43 PM ECONOMICS TEACHER Inhaled Oxygen Concentration - - Weight 96.7 kg (213 lb 3 oz) 06/11/2021 7:55 AM ECONOMICS TEACHER Height 168.5 cm (5' 6.34) 06/06/2021 8:04 PM ECONOMICS TEACHER Body Mass Index 34.06 06/06/2021 8:04 PM ECONOMICS TEACHER documented in this encounter Discharge Summaries Laurita Reyes P.A.-C., M.S. - 06/11/2021 3:22 PM CST DISCHARGE SUMMARY BRIEF OVERVIEW Hospital: [facility] Discharge Provider: Ronny Peña M.D. 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 She was evaluated by a local mold changer and diagnosed with CALR mutated myelofibrosis. She was initiated on Jakafi at the time of diagnosis however this caused her to betransfusion dependent so it was discontinued. She presented to [facility] for further recommendations and was enrolled in the [id number] clinical study. A myeloproliferative neoplasm panel was done at [facility] on 05/01/2016 that confirmed CALR and revealed [...] Dobbs will be contacted by our Desk Belting And Webbing Inspector prior to their next planned admission to make arrangements for preadmission COVID testing. COVID testing results should be completed and resulted within 48-72 hrs prior to hospital admission. I saw and evaluated Jennifer Dobbs today and provided counseling [id number] at bedside. I personally spent greater than 30 minutes in counseling and discussion with the patient and in coordination of care as described above to facilitate the hospital discharge. Please contact the [facility] at [phone] with any questions or concerns. CONSULTS ORDERED DURING THIS ADMISSION IP CONSULT TO CARDIOLOGY CONDITION AT DISCHARGE stable Discharge instructions were provided to the patient and caregiver(s). OMICS TEACHER documented in this encounter Discharge Instructions Nu Dos Santos - 06/08/2021 10:12 AM CST Take a copy of this after visit summary to your appointment(s). [place], [place] June 15, 2021 - Friday --8:15 am - Hospital Follow-Up with Dr. Cr at [facility] ([address] [place], [place]) RECOMMENDATIONS: * * [facility] You may have outpatient appointments at [facility] that changed during your hospitalization. Refer to your [facility] Patient Visit Guide (PVG) for the most current schedule of appointments and detailed instructions of tests/procedures. Call [phone], if you did not receive an PVG or need to CANCEL any [facility] appointment(s). OMICS TEACHER AttachmentsThe following attachments cannot be sent through Care Everywhere. Calcium Acetate (By mouth) ([place])Fedratinib (By mouth) ([place])Torsemide (By mouth) ([place])documented in this encounter Medications at Time of [...] will continue to follow along. Please page [phone] with questions or concerns. Lanette Loera M.D. OMICS TEACHER Ijeoma Hickman M.D. - 06/10/2021 2:19 PM [...] if positive she will need to see [facility] for palliative radiation to the lungs, if [...] for labs monitoring per Dr Xuan khalil. OMICS TEACHER Laurita Reyes P.A.-C., M.S. - 06/10/2021 8:38 AM CST HEMATOLOGY 2 SERVICE (service pager [phone]) SUBJECTIVE EVENTS OVER THE LAST 24 HOURS [...] splenomegaly. She was evaluated by a local mold changer and diagnosed with CALR mutated myelofibrosis. She was initiated on Jakafi at the time of diagnosis however this caused her to betransfusion dependent so it was discontinued. She presented to [facility] for further recommendations and was enrolled in the [id number] clinical study. A myeloproliferative neoplasm panel was done at [facility] on 05/01/2016 that confirmed CALR and revealed [...] pending scheduling - If positive --> consult [facility] for palliative radiation to lungs - If [...] for 07/24/2021, HLA typing obtained 06/07 - [facility] reviewing case to follow locally, Jacques [...] blood component administration. Surrogate Decision Maker: Spouse, iGan Dobbs [phone] Disposition: Pending clinical stability OMICS TEACHER Ijeoma Hickman M.D. - 06/09/2021 12:36 PM CST I have seen and examined the patient. I discussed the case and agree with??ms Eric ?? Mrs.??Rinku??is a 51-year-old female diagnosed with [...] patient is able to get without interruption. OMICS TEACHER Laurita Reyes P.A.-C., M.S. - 06/09/2021 10:38 AM CST HEMATOLOGY 2 SERVICE (service pager [phone]) SUBJECTIVE EVENTS OVER THE LAST 24 HOURS [...] splenomegaly. She was evaluated by a local mold changer and diagnosed with CALR mutated myelofibrosis. She was initiated on Jakafi at the time of diagnosis however this caused her to betransfusion dependent so it was discontinued. She presented to [facility] for further recommendations and was enrolled in the [id number] clinical study. A myeloproliferative neoplasm panel was done at [facility] on 05/01/2016 that confirmed CALR and revealed [...] - Bone marrow biopsy 06/06: PENDING - [place] Bone marrow scan to evaluate pulmonary extramedullary hematopoesis in lungs - ordered and pending scheduling - If positive --> consult [facility] for palliative radiation to lungs - If [...] for 07/24/2021, HLA typing obtained 06/07 - [facility] reviewing case to follow locally, Jacques [...] administration. Surrogate Decision Maker: Spouse, Gian Dobbs [phone] Disposition: Pending clinical stability OMICS TEACHER Laurita Reyes P.A.-C., M.S. - 06/08/2021 2:07 PM CST HEMATOLOGY 2 SERVICE (service pager [phone]) SUBJECTIVE EVENTS OVER THE LAST 24 HOURS [...] splenomegaly. She was evaluated by a local mold changer and diagnosed with CALR mutated myelofibrosis. She was initiated on Jakafi at the time of diagnosis however this caused her to betransfusion dependent so it was discontinued. She presented to [facility] for further recommendations and was enrolled in the [id number] clinical study. A myeloproliferative neoplasm panel was done at [facility] on 05/01/2016 that confirmed CALR and revealed [...] for 07/24/2021, HLA typing obtained 06/07 - [facility] reviewing case to follow locally, Jacques [...] administration. Surrogate Decision Maker: Spouse, Gian Dobbs [phone] Disposition: Pending clinical stability OMICS TEACHER Ijeoma Hickman M.D. - 06/08/2021 2:05 PM [...] who is in agreement of this plan OMICS TEACHER Blaine Bustillos M.D., M.B.A. - 06/08/2021 8:12 [...] g/dL). Echo performed at the patient's bedside ([facility]) with the patient supine due to dyspnea [...] Blaine Bustillos M.D., M.B.A. 06/08/21 8:17 AM ECONOMICS TEACHER OMICS TEACHER Laurita Reyes P.A.-C., M.S. - 06/07/2021 3:08 PM CST HEMATOLOGY 2 SERVICE (service pager [phone]) SUBJECTIVE EVENTS OVER THE LAST 24 HOURS [...] splenomegaly. She was evaluated by a local mold changer and diagnosed with CALR mutated myelofibrosis. She was initiated on Jakafi at the time of diagnosis however this caused her to betransfusion dependent so it was discontinued. She presented to [facility] for further recommendations and was enrolled in the [id number] clinical study. A myeloproliferative neoplasm panel was done at [facility] on 05/01/2016 that confirmed CALR and revealed [...] administration. Surrogate Decision Maker: Spouse, Gian Dobbs [phone] Disposition: Pending clinical stability OMICS TEACHER Ijeoma Hickman M.D. - 06/07/2021 2:49 PM [...] perspective we appreciate the help of our project manager interior design, we will be careful in her diuresis [...] on starting fedratinib as is not approved. OMICS TEACHER Lida Amanda, Katrina.Ph. - 06/06/2021 2:12 PM [...] mutated primary myelofibrosis. S/p treatment with Jakafi [id number] with no response, 3 cycles of 9-ING [...] pharmacist on 06/06/21) Dispo: TBHaydee Beltran Pharm.D. OMICS TEACHER documented in this encounter H&P Notes Maryg Frazier P.A.-C. - 06/06/2021 12:15 PM CST REFERRING PHYSICIAN Patient Care Team: Janusz Govea M.B.B.S. as Primary Felt Strip Finisher (Hematology) HEMATOLOGY 2 SERVICE (service pager [phone]) SUBJECTIVE CHIEF COMPLAINT / REASON FOR VISIT [...] splenomegaly. She was evaluated by a local mold changer and diagnosed with CALR mutated myelofibrosis. She was initiated on Jakafi at the time of diagnosis however this caused her to be transfusion dependent so it was discontinued. After failing Jakafi she presented to [facility] for further recommendations and was enrolled in the [id number] clinical study. A myeloproliferative neoplasm panel was done at [facility] on that confirmed CALR and revealed that she was negative for JAK2 [id number]. Most recent bone marrow biopsy at [facility] was done on 06/01/2020 and revealed [...] 10 mg/hr with goal of being net [id number] in 24 hours, plan to titrate up [...] Code Surrogate Decision Maker: Spouse, Gian Dobbs [phone] Disposition: Pending clinical course. OMICS TEACHER documented in this encounter Procedure Notes Stephan [...] COMMENTS 100 mg 1% Lidocaine given SQ. OMICS TEACHER documented in this encounter Consult Notes Liborio [...] She should not be having more than 4351-4997 mg of sodium per day and currently [...] following with you. Liborio Urbano M.D. 06/07/2021 OMICS TEACHER documented in this encounter Nursing Notes Clemencia [...] appointment tomorrow morning. Patient was discharged to [facility] and escort assisted patient to vehicle. OMICS TEACHER Mariann Martin R.N. - 06/11/2021 2:47 PM [...] evening with follow-up on [address] tomorrow OMICS TEACHER Wolfgang Owens R.N. - 06/08/2021 10:56 PM [...] with lasix drip, will continue to monitor. OMICS TEACHER Paulina Thompson R.N. - 06/08/2021 6:11 AM CST Shift Goals: Clinical Goals for the Shift: Patient will have adequate pain control Identify possible barriers to meeting goals/advancing plan of care: none End of Shift Summary: Reviewed care plan and remains appropriate. Will continue to monitor. Problem: PAIN - ADULT Goal: PT VERBALIZES/DEMONSTRATES ADEQUATE COMFORT LEVEL OR BASELINE Outcome: Progressing OMICS TEACHER documented in this encounter Miscellaneous Notes Hospital Course - Laurita Reyes, Judit.-Vanda., M.S. - 06/06/2021 3:28 PM ECONOMICS TEACHER Mrs. 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 She was initially diagnosed inFebruary 2016 after presenting to local ED after developing severe left upper quadrant pain and found to have marked splenomegaly. She was evaluated by a local mold changer and diagnosed with CALR mutated myelofibrosis. She was initiated on Jakafi at the time of diagnosis however this caused her to betransfusion dependent so it was discontinued. She presented to [facility] for further recommendations and was enrolled in the [id number] clinical study. A myeloproliferative neoplasm panel was done at [facility] on 05/01/2016 that confirmed CALR and revealed [...] Dobbs will be contacted by our Desk Belting And Webbing Inspector prior to their next planned admission to make arrangements for preadmission COVID testing. COVID testing results should be completed and resulted within 48-72 hrs prior to hospital admission. I saw and evaluated Jennifer Dobbs today and provided counseling [id number] at bedside. I personally spent greater than 30 minutes in counseling and discussion with the patient and in coordination of care as described above to facilitate the hospital discharge. Please contact the [facility] at [phone] with any questions or concerns. OMICS TEACHER documented in this encounter Plan of Treatment Pending Results Name Type Priority Associated Diagnoses Date/Ti me Prepare Red Blood Blood Bank Routine 06/06/2021 9:27 AM ECONOMICS TEACHER Cells, 1 Units Prepare Red Blood Blood Bank Routine 06/06/2021 9:27 AM ECONOMICS TEACHER Cells, 1 Units Prepare Red Blood Blood Bank Routine 06/06/2021 9:27 AM ECONOMICS TEACHER Cells, 1 Units Prepare Red Blood Blood Bank Routine 06/06/2021 9:27 AM ECONOMICS TEACHER Cells, 1 Units Prepare Red Blood Blood Bank Routine 06/06/2021 9:27 AM ECONOMICS TEACHER Cells, 1 Units Prepare Red Blood Blood Bank Routine 06/09/2021 12:25 AM ECONOMICS TEACHER Cells, 1 Units Prepare Red Blood Blood Bank Routine 06/09/2021 12:25 AM ECONOMICS TEACHER Cells, 1 Units Scheduled Orders Name Type Priority Associated Diagnoses Order S chedule Bedside anesthesia Procedures STAT Once for 1 Occurrences scheduling starting 2020 until documented as of this encounter Procedures Procedure Name Priority Date/Time Associated Comments Diagnosis TRANSFUSE RED BLOOD Routine 06/11/2021 1:50 CELLS PM ECONOMICS TEACHER NM BONE MARROW SCAN RAD - Routine 06/11/2021 Results for WHOLE BODY (most inpatients 11:30 AM ECONOMICS TEACHER this proced ure and all are in the outpatients) results section. (TTE) 2D LIMITED WITH Routine 06/11/2021 Result s for COLOR AND DOPPLER 10:28 AM ECONOMICS TEACHER this proce dure are in the results section. VRE PCR Routine 06/11/2021 8:09 Results for AM ECONOMICS TEACHER this procedure are in the results section. RT PULSE OXIMETRY, Routine 06/11/2021 7:11 Result s for OVERNIGHT AM ECONOMICS TEACHER this procedure are in the results section. MORPHOLOGY EVAL Routine 06/11/2021 5:44 Results f or (SPECIAL SMEAR) AM ECONOMICS TEACHER this procedu re are in the results section. CBC NO CALL BACK, Routine 06/11/2021 5:44 Results for REFLEX T/S AM ECONOMICS TEACHER this procedure are in the results section. NT-PRO B-TYPE Routine 06/11/2021 5:44 Results for NATRIURETIC PEPTIDE AM ECONOMICS TEACHER this pro cedure (BNP), S are in the results section. URIC ACID, S/P Routine 06/11/2021 5:44 Results fo r AM ECONOMICS TEACHER this procedure are in the results section. PHOSPHORUS Routine 06/11/2021 5:44 Results for (INORGANIC), S AM ECONOMICS TEACHER this procedur e are in the results section. MAGNESIUM, S Routine 06/11/2021 5:44 Results for AM ECONOMICS TEACHER this procedure are in the results section. COMPREHENSIVE Routine 06/11/2021 5:44 Results for METABOLIC PANEL, S/P AM ECONOMICS TEACHER this pr ocedure are in the results section. MORPHOLOGY EVAL Routine 06/10/2021 5:44 Results f or (SPECIAL SMEAR) AM ECONOMICS TEACHER this procedu re are in the results section. CBC NO CALL BACK, Routine 06/10/2021 5:44 Results for REFLEX T/S AM ECONOMICS TEACHER this procedure are in the results section. URIC ACID, S/P Routine 06/10/2021 5:44 Results fo r AM ECONOMICS TEACHER this procedure are in the results section. PHOSPHORUS Routine 06/10/2021 5:44 Results for (INORGANIC), S AM ECONOMICS TEACHER this procedur e are in the results section. MAGNESIUM, S Routine 06/10/2021 5:44 Results for AM ECONOMICS TEACHER this procedure are in the results section. BASIC METABOLIC Routine 06/10/2021 5:44 Results f or PANEL, S/P AM ECONOMICS TEACHER this procedure are in the results section. TRANSFUSE RED BLOOD Routine 06/09/2021 3:36 CELLS PM ECONOMICS TEACHER CBC NO CALL BACK, Timed 06/09/2021 2:05 Results for REFLEX T/S PM ECONOMICS TEACHER this procedure are in the results section. URIC ACID, S/P Timed 06/09/2021 2:05 Results fo r PM ECONOMICS TEACHER this procedure are in the results section. PHOSPHORUS Timed 06/09/2021 2:05 Results for (INORGANIC), S PM ECONOMICS TEACHER this procedur e are in the results section. BASIC METABOLIC Timed 06/09/2021 2:05 Results f or PANEL, S/P PM ECONOMICS TEACHER this procedure are in the results section. MORPHOLOGY EVAL Routine 06/09/2021 Results for (SPECIAL SMEAR) 12:25 AM ECONOMICS TEACHER this procedu re are in the results section. CBC NO CALL BACK, Routine 06/09/2021 Results fo r REFLEX T/S 12:25 AM ECONOMICS TEACHER this procedure are in the results section. PREPARE RED BLOOD Routine 06/09/2021 CELLS 12:25 AM ECONOMICS TEACHER PREPARE RED BLOOD Routine 06/09/2021 CELLS 12:25 AM ECONOMICS TEACHER TYPE AND SCREEN Routine 06/09/2021 Results for 12:25 AM ECONOMICS TEACHER this procedure are in the results section. URIC ACID, S/P Routine 06/09/2021 Results for 12:25 AM ECONOMICS TEACHER this procedure are in the results section. PHOSPHORUS Routine 06/09/2021 Results for (INORGANIC), S 12:25 AM ECONOMICS TEACHER this procedur e are in the results section. BASIC METABOLIC Routine 06/09/2021 Results for PANEL, S/P 12:25 AM ECONOMICS TEACHER this procedure are in the results section. TRANSFUSE RED BLOOD Routine 06/08/2021 6:23 CELLS PM ECONOMICS TEACHER CBC NO CALL BACK, Timed 06/08/2021 2:50 Results for REFLEX T/S PM ECONOMICS TEACHER this procedure are in the results section. URIC ACID, S/P Timed 06/08/2021 2:50 Results fo r PM ECONOMICS TEACHER this procedure are in the results section. PHOSPHORUS Timed 06/08/2021 2:50 Results for (INORGANIC), S PM ECONOMICS TEACHER this procedur e are in the results section. MAGNESIUM, S Timed 06/08/2021 2:50 Results for PM ECONOMICS TEACHER this procedure are in the results section. BASIC METABOLIC Timed 06/08/2021 2:50 Results f or PANEL, S/P PM ECONOMICS TEACHER this procedure are in the results section. TRANSFUSE RED BLOOD Routine 06/08/2021 CELLS 10:40 AM ECONOMICS TEACHER MORPHOLOGY EVAL Routine 06/08/2021 Results for (SPECIAL SMEAR) 12:09 AM ECONOMICS TEACHER this procedu re are in the results section. CBC NO CALL BACK, Routine 06/08/2021 Results fo r REFLEX T/S 12:09 AM ECONOMICS TEACHER this procedure are in the results section. COMPREHENSIVE Routine 06/08/2021 Results for METABOLIC PANEL, S/P 12:09 AM ECONOMICS TEACHER this pr ocedure are in the results section. NT-PRO B-TYPE Routine 06/08/2021 Results for NATRIURETIC PEPTIDE 12:08 AM ECONOMICS TEACHER this pro cedure (BNP), S are in the results section. URIC ACID, S/P Routine 06/08/2021 Results for 12:08 AM ECONOMICS TEACHER this procedure are in the results section. PHOSPHORUS Routine 06/08/2021 Results for (INORGANIC), S 12:08 AM ECONOMICS TEACHER this procedur e are in the results section. HAPTOGLOBIN, S Routine 06/08/2021 Results for 12:01 AM ECONOMICS TEACHER this procedure are in the results section. URIC ACID, S/P Timed 06/07/2021 4:18 Results fo r PM ECONOMICS TEACHER this procedure are in the results section. PHOSPHORUS Timed 06/07/2021 4:18 Results for (INORGANIC), S PM ECONOMICS TEACHER this procedur e are in the results section. BASIC METABOLIC Timed 06/07/2021 4:18 Results f or PANEL, S/P PM ECONOMICS TEACHER this procedure are in the results section. HEMOGLOBIN, B Timed 06/07/2021 Results for 11:17 AM ECONOMICS TEACHER this procedure are in the results section. CT CHEST ANGIOGRAM RAD - Semiurgent 06/07/2021 Resul ts for WITH IV CONTRAST (Fast; most ED 10:15 AM ECONOMICS TEACHER this proc edure patients; some are in the inpatients) results section. TRANSFUSE RED BLOOD Routine 06/07/2021 7:23 CELLS AM ECONOMICS TEACHER SPSMA RESULT Routine 06/07/2021 6:41 Results for AM ECONOMICS TEACHER this procedure are in the results section. HLA CLASS II TYPING Routine 06/07/2021 5:47 Resul ts for HIGHRES,RECIP,B AM ECONOMICS TEACHER this procedu re are in the results section. HLA CLASS I TYPING Routine 06/07/2021 5:47 Result s for HIGHRES,RECIP,B AM ECONOMICS TEACHER this procedu re are in the results section. MORPHOLOGY EVAL Routine 06/07/2021 5:47 Results f or (SPECIAL SMEAR) AM ECONOMICS TEACHER this procedu re are in the results section. CBC NO CALL BACK, Routine 06/07/2021 5:47 Results for REFLEX T/S AM ECONOMICS TEACHER this procedure are in the results section. HLA CLASS II SAB Routine 06/07/2021 5:47 Results for ANTIBODY SCREEN AM ECONOMICS TEACHER this procedu re are in the results section. HLA CLASS I SAB Routine 06/07/2021 5:47 Results f or ANTIBODY SCREEN AM ECONOMICS TEACHER this procedu re are in the results section. PROTHROMBIN TIME Routine 06/07/2021 5:47 Results for (PT), P AM ECONOMICS TEACHER this procedure are in the results section. URIC ACID, S/P Routine 06/07/2021 5:47 Results fo r AM ECONOMICS TEACHER this procedure are in the results section. PHOSPHORUS Routine 06/07/2021 5:47 Results for (INORGANIC), S AM ECONOMICS TEACHER this procedur e are in the results section. MAGNESIUM, S Routine 06/07/2021 5:47 Results for AM ECONOMICS TEACHER this procedure are in the results section. COMPREHENSIVE Routine 06/07/2021 5:47 Results for METABOLIC PANEL, S/P AM ECONOMICS TEACHER this pr ocedure are in the results section. HLA-DPB1 CONFIRM Routine 06/07/2021 5:40 Results for TYPING, RECIP,BUC AM ECONOMICS TEACHER this proce dure are in the results section. HLA-ABDR CONFIRM Routine 06/07/2021 5:40 Results for TYPING, RECIP,BUC AM ECONOMICS TEACHER this proce dure are in the results section. BILIRUBIN DIRECT, S/P Routine 06/07/2021 5:29 Res ults for AM ECONOMICS TEACHER this procedure are in the results section. TRANSFUSE RED BLOOD Routine 06/06/2021 8:28 CELLS PM ECONOMICS TEACHER NT-PRO B-TYPE Routine 06/06/2021 6:54 Results for NATRIURETIC PEPTIDE PM ECONOMICS TEACHER this pro cedure (BNP), S are in the results section. HEMOGLOBIN, B Timed 06/06/2021 6:54 Results for PM ECONOMICS TEACHER this procedure are in the results section. SARS CORONAVIRUS 2, Routine 06/06/2021 5:32 Resul ts for MOLECULAR DETECTION, PM ECONOMICS TEACHER this pr ocedure PCR, VARIES are in the results section. VRE PCR Routine 06/06/2021 5:32 Results for PM ECONOMICS TEACHER this procedure are in the results section. (TTE) 2D ECHO DOPPLER STAT 06/06/2021 5:17 Res ults for COLOR PM ECONOMICS TEACHER this procedure are in the results section. TRANSFUSE RED BLOOD Routine 06/06/2021 4:28 CELLS PM ECONOMICS TEACHER PA DX BONE MARROW BX STAT 06/06/2021 4:00 Myelofibrosis (HC C) Results for & ASPIR PM ECONOMICS TEACHER this procedure are in the results section. US ABDOMEN COMPLETE RAD - Semiurgent 06/06/2021 3:11 R esults for WITH LIVER DOPPLER (Fast; most ED PM ECONOMICS TEACHER this pr ocedure patients; some are in the inpatients) results section. US LOWER EXTREMITY RAD - Semiurgent 06/06/2021 3:06 Re sults for VEINS BILATERAL (Fast; most ED PM ECONOMICS TEACHER this proce dure patients; some are in the inpatients) results section. HEMATOPATHOLOGY Routine 06/06/2021 1:40 Results f or PM ECONOMICS TEACHER this procedure are in the results section. THIAMIN (VITAMIN B1), STAT 06/06/2021 1:28 Res ults for B PM ECONOMICS TEACHER this procedure are in the results section. [id number] STAT 06/06/2021 1:28 Resul ts for DEHYDROGENASE PM ECONOMICS TEACHER this procedure (G-6-PD), SAVANAH, are in the ERYTHROCYTES, B results section. ACTIVATED PARTIAL STAT 06/06/2021 1:28 Results for THROMBOPLASTIN TIME PM ECONOMICS TEACHER this pro cedure (APTT), P are in the results section. PROTHROMBIN TIME STAT 06/06/2021 1:28 Results for (PT), P PM ECONOMICS TEACHER this procedure are in the results section. FIBRINOGEN, P STAT 06/06/2021 1:28 Results for PM ECONOMICS TEACHER this procedure are in the results section. URIC ACID, S/P STAT 06/06/2021 1:28 Results fo r PM ECONOMICS TEACHER this procedure are in the results section. PHOSPHORUS STAT 06/06/2021 1:28 Results for (INORGANIC), S PM ECONOMICS TEACHER this procedur e are in the results section. LIPASE, S/P STAT 06/06/2021 1:28 Results for PM ECONOMICS TEACHER this procedure are in the results section. AMYLASE, TOT, S STAT 06/06/2021 1:28 Results f or PM ECONOMICS TEACHER this procedure are in the results section. BASIC METABOLIC STAT 06/06/2021 1:28 Results f or PANEL, S/P PM ECONOMICS TEACHER this procedure are in the results section. ECG Routine 06/06/2021 1:11 Results for PM ECONOMICS TEACHER this procedure are in the results section. NGS FOR MYELOID Routine 06/06/2021 Results for NEOPLASMS (NGSHM) 10:19 AM ECONOMICS TEACHER this proce dure are in the results section. CHROMOSOMES, Routine 06/06/2021 Results for HEMATOLOGIC, BM 10:19 AM ECONOMICS TEACHER this procedu re are in the results section. CYTOMEGALOVIRUS AB, Routine 06/06/2021 9:27 Resul ts for IGM AND IGG AM ECONOMICS TEACHER this procedure are in the results section. PREPARE RED BLOOD Routine 06/06/2021 9:27 CELLS AM ECONOMICS TEACHER PREPARE RED BLOOD Routine 06/06/2021 9:27 CELLS AM ECONOMICS TEACHER PREPARE RED BLOOD Routine 06/06/2021 9:27 CELLS AM ECONOMICS TEACHER PREPARE RED BLOOD Routine 06/06/2021 9:27 CELLS AM ECONOMICS TEACHER PREPARE RED BLOOD Routine 06/06/2021 9:27 CELLS AM ECONOMICS TEACHER documented in this encounter Results Transfuse Red Blood Cells : (06/11/2021 3:46 PM ECONOMICS TEACHER) Laurita Reyes P.A.-C., M.S. BLOOD TRANSFUSION ORDER NAGI Transfuse Red Blood Cells : , 1 Units (06/11/2021 3:46 PM ECONOMICS TEACHER) Laurita Reyes P.A.-C., M.S. BLOOD TRANSFUSION ORDER NAGI NM Bone Marrow Scan Whole Body (06/11/2021 11:30 AM ECONOMICS TEACHER) Anatomical Region Laterality Modality Whole body, Nuclear Medicine RST LOS, Nuclear Medicine N/A Nuclear Medicine ARZ LOS, Nuclear Medicine FLA LOS, Nuclear Medicine Specimen (Source) Anatomical Collection Method Collection Time Re ceived Time Location / / Volume Laterality 06/11/2021 1:46 PM ECONOMICS TEACHER Impressions 06/11/2021 1:51 PM ECONOMICS TEACHER Minimally elevated diffuse activity in both lungs, favored to be related to scatter from liver and spleni c activity although mild diffuse pulmonary extramedullary hematopoiesis c ould appear similar. Narrative 06/11/2021 1:51 PM ECONOMICS TEACHER EXAM: ??NM BONE MARROW SCAN WHOLE BODY [...] WITH COLOR AND DOPPLER (06/11/2021 10:28 AM ECONOMICS TEACHER) P athologist Signature Ejection 59 MC CV [...] / / Volume Laterality 06/11/2021 8:07 AM ECONOMICS TEACHER Impressions 06/11/2021 11:31 AM ECONOMICS TEACHER Echocardiogram performed per left ventricular function protocol and follow-up assessment of right heart function status-post diuresi s. ??Last full echocardiogram performed 06/06/2021. Echo performed at the patient's bedside ([facility]). ??Patient supine and head of bed elevated [...] were performed but not reported based on station cook's judgment. ??No regional wall motion abnormalities. ??Indeterminate [...] was performed but not reported based on station cook's judgment . ??ATRIA: ??Mildly enlarged left atrial [...] constriction. For the complete report, see the authorGEN Documents. Narrative 06/11/2021 11:31 AM ECONOMICS TEACHER For the complete report, see the authorGEN Documents. Final Impressions 1. Small circumferential pericardial [...] original. For the complete report, see the authorGEN Documents. Final Impressions 1. Small circumferential pericardial [...] 06/06/2021. Echo performed at the patient's bedside ([facility]). Patient supine and head of bed elevated [...] were performed but not reported based on station cook's judgment. No regional wall motion abnormalities. Indeterminate [...] was performed but not reported based on station cook's judgment . ATRIA: Mildly enlarged left atrial [...] ECHO PROCEDURES VRE PCR (06/11/2021 8:09 AM ECONOMICS TEACHER) [facility] Method Time Signature Specimen Swab, 06/11/2021 DTL Source Perirectal 1:52 PM ECONOMICS TEACHER VRE PCR Negative Negative 06/11/2021 DTL 1:52 PM ECONOMICS TEACHER Comment: ----ADDITIONAL INFORMATION---- This test was developed using an analyte specific reagent. Its performance characteristics were determined by [facility] in a manner consistent with CLIA requirements. This test has not bee n cleared or approved by the U.S. Food and Drug Administration. Specimen Anatomical Collection Method Collection Time Receive d Time (Source) Location / / Volume Laterality Varies 06/11/2021 8:09 AM 8:38 (Perirectal) ECONOMICS TEACHER AM ECONOMICS TEACHER Ijeoma Hickman M.D. LAB MICROBIOLOGY - GENERAL O RDERABLES Performing Organization Address City/[facility]/ZIP Code Phon e Number [facility] - [address] [place] [address] [place] [id number] Laboratories-[address] RT Pulse Oximetry, Overnight (06/11/2021 7:11 AM ECONOMICS TEACHER) Specimen (Source) Anatomical Location Collection Method / Collectio n Time Received Time / Laterality Volume 06/10/2021 Narrative WARREN SAHARAISION EAP - 06/11/2021 2:56 PM CS T This result has an attachment that is no t available. See PDF report for results Procedure Note Homar Garzon M.D., Ph.D. - 021 See PDF report for results Laurita Reyes P.A.-C., M.S. SLEEP CENTER ORDERABLES Performing Organization Address City/[facility]/ZIP Code Phon e Number WARREN NVISION EAP (ABNORMAL) Morphology Evaluation (Special smear) (06/11/2021 5:44 AM ECONOMICS TEACHER) [facility] Method Time Signature Neutrophilic Segs 69 50 - 75 % 06/11/2021 [facility] 6:48 AM ECONOMICS TEACHER Lymphocytes 12 (L) 18 - 42 % 06/11/2021 DHPM 6:48 AM ECONOMICS TEACHER Monocytes 4 2 - 11 % 06/11/2021 DHPM 6:48 AM ECONOMICS TEACHER Metamyelocytes 1 (H) <1 % 06/11/2021 [facility] 6:48 AM ECONOMICS TEACHER Myelocytes 14 (H) <0.5 % 06/11/2021 [facility] 6:48 AM ECONOMICS TEACHER Manual Absolute 2.00 1.56 - 06/11/2021 [facility] Neutrophil Count 6.45 6:48 AM ECONOMICS TEACHER x10(9)/L Comment: ----ADDITIONAL INFORMATION---- The manual absolute neutrophil count is derived from a manual differential count and therefore is not exactly comparable to the automated absolute halie trophil count. Specimen Anatomical Collection Method Collection Time Receive d Time (Source) Location / / Volume Laterality Blood 06/11/2021 5:44 AM 5:55 ECONOMICS TEACHER AM ECONOMICS TEACHER Laurita Reyes P.A.-C. M.S. LAB PATHOLOGY/CYTOLOGY ORDERABLES Performing Organization Address [facility] Phon e Number [place] [phone] Laboratories-[address] (ABNORMAL) NT-Pro B-Type Natriuretic Peptide (BNP) (06/11/2021 5:44 AM ECONOMICS TEACHER) athologist Signature NT-Pro BNP 14441 (H) <=155 pg/mL 06/11/2021 DTL 6:33 AM ECONOMICS TEACHER Comment: NT-proBNP values less than 300 pg/mL [...] (Blood, 06/11/2021 5:44 AM 06/11/20 6:06 Venous) ECONOMICS TEACHER AM ECONOMICS TEACHER Laurita Reyes P.A.-C., M.S. LAB BLOOD ADD-ON Performing Organization Address [facility] Phon e Number [facility] [employer] - [address] [place] [address] [place] [address] [facility] [address] [facility] Magnesium (06/11/2021 5:44 AM ECONOMICS TEACHER) P athologist Signature Magnesium, S 2.3 1.7 - 2.3 06/11/2021 DTL mg/dL 6:33 AM ECONOMICS TEACHER Specimen Anatomical Collection Method Collection Time Receive d Time (Source) Location / / Volume Laterality Blood (Blood, 06/11/2021 5:44 AM 06/11/20 6:06 Venous) ECONOMICS TEACHER AM ECONOMICS TEACHER Laurita Reyes P.A.-C., M.S. LAB BLOOD ADD-ON Performing Organization Address City/[facility] Phon e Number [facility] - [address] Uric Acid (06/11/2021 5:44 AM ECONOMICS TEACHER) athologist Signature Uric Acid, S 6.1 2.7 - 6.1 06/11/2021 DTL mg/dL 6:33 AM ECONOMICS TEACHER Specimen Anatomical Collection Method Collection Time Receive d Time (Source) Location / / Volume Laterality Blood (Blood, 06/11/2021 5:44 AM 06/11/20 6:06 Venous) ECONOMICS TEACHER AM ECONOMICS TEACHER Laurita Reyes P.A.-C., M.S. LAB BLOOD ADD-ON Performing Organization Address City/State/[facility] Code Phon e Number [facility] - [address] (ABNORMAL) Phosphorus Inorganic (06/11/2021 5:44 AM ECONOMICS TEACHER) athologist Signature Phosphorus 4.9 (H) 2.5 - 4.5 06/11/2021 DTL (Inorganic), S mg/dL 6:33 AM ECONOMICS TEACHER Specimen Anatomical Collection Method Collection Time Receive d Time (Source) Location / / Volume Laterality Blood (Blood, 06/11/2021 5:44 AM 06/11/20 6:06 Venous) ECONOMICS TEACHER AM ECONOMICS TEACHER Laurita Reyes P.A.-C. MZahraaS. LAB BLOOD ADD-ON Performing Organization Address City/State/ZIP Code Phon e Number [facility] - [address] [place] [address] [facility] [place] [address] Laboratories-[facility] [address] (ABNORMAL) Comprehensive Metabolic Panel (06/11/2021 5:44 AM ECONOMICS TEACHER) Analysis Performed At Patho logist Time Signature Potassium, S 4.8 3.6 - 5.2 06/11/2021 DTL mmol/L 6:30 AM ECONOMICS TEACHER Sodium, S 139 135 - 145 06/11/2021 DTL mmol/L 6:30 AM ECONOMICS TEACHER Chloride, S 97 (L) 98 - 107 06/11/2021 DTL mmol/L 6:30 AM ECONOMICS TEACHER Bicarbonate, S 35 (H) 22 - 29 06/11/2021 DTL mmol/L 6:30 AM ECONOMICS TEACHER Anion Gap 7 7 - 15 06/11/2021 DTL 6:30 AM ECONOMICS TEACHER BUN (Blood Urea 32 (H) 6 - 21 06/11/2021 DTL Nitrogen), S mg/dL 6:30 AM ECONOMICS TEACHER Creatinine 1.14 (H) 0.59 - 06/11/2021 DTL 1.04 mg/dL 6:30 AM ECONOMICS TEACHER eGFR-Non 55 (L) >=60 06/11/2021 DTL Black/ mL/min/BSA 6:30 AM ECONOMICS TEACHER Georgian Comment: ----ADDITIONAL INFORMATION---- Estimated GFR calculated using the 2009 CKD_EPI creatinine equation. eGFR-Black/ 63 >=60 mL/min/BSA 2020 6:30 AM ECONOMICS TEACHER DTL Comment: ----ADDITIONAL INFORMATION---- Estimated GFR calculated using the 2009 CKD_EPI creatinine equation. Calcium, Total, S 9.2 8.6 - 10.0 mg/dL 06/11/2021 6:30 AM ECONOMICS TEACHER DTL Glucose, S 113 70 - 140 mg/dL 06/11/2021 6:30 AM ECONOMICS TEACHER D TL Protein, Total, S 5.6 (L) 6.3 - 7.9 g/dL 06/11/2021 6:30 A M ECONOMICS TEACHER DTL Albumin, S 4.1 3.5 - 5.0 g/dL 06/11/2021 6:30 AM ECONOMICS TEACHER D TL Aspartate Aminotransferase 19 8 - 43 U/L 06/11/2021 6 :30 AM ECONOMICS TEACHER DTL (AST), S Alkaline Phosphatase, S 42 35 - 104 U/L 06/11/2021 6: 30 AM ECONOMICS TEACHER DTL Alanine Aminotransferase 10 7 - 45 U/L 06/11/2021 6:3 0 AM ECONOMICS TEACHER DTL (ALT), S Bilirubin, Total, S 1.0 <=1.2 mg/dL 06/11/2021 6:30 AM ECONOMICS TEACHER DTL Specimen Anatomical Collection Method Collection Time Receive d Time (Source) Location / / Volume Laterality Blood (Blood, 06/11/2021 5:44 AM 06/11/20 6:06 Venous) ECONOMICS TEACHER AM ECONOMICS TEACHER Laurita Reyes P.A.-C., M.S. LAB BLOOD ADD-ON Performing Organization Address City/State/ZIP Code Phon e Number [facility] - [address] [place] [phone] [facility] [place] [address] Laboratories-[facility] [address] [facility] (ABNORMAL) CBC no call back, reflex T/S HGB <8 (06/11/2021 5:44 AM ECONOMICS TEACHER) [facility] gist Method Time Signature Hemoglobin 7.7 (L) 11.6 - 06/11/2021 DTL 15.0 g/dL 6:02 AM ECONOMICS TEACHER Hematocrit 24.6 (L) 35.5 - 06/11/2021 DTL 44.9 % 6:02 AM ECONOMICS TEACHER Erythrocytes 2.88 (L) 3.92 - 06/11/2021 DTL 5.13 6:02 AM ECONOMICS TEACHER x10(12)/L MCV 85.4 78.2 - 06/11/2021 DTL 97.9 fL 6:02 AM ECONOMICS TEACHER RBC Distrib 22.4 (H) 12.2 - 06/11/2021 DTL Width 16.1 % 6:02 AM ECONOMICS TEACHER Platelet Count 103 (L) 157 - 371 06/11/2021 DTL x10(9)/L 6:02 AM ECONOMICS TEACHER Leukocytes 2.9 (L) 3.4 - 9.6 06/11/2021 DTL x10(9)/L 6:48 AM ECONOMICS TEACHER Neutrophils SeeComment 1.56 - 06/11/2021 DTL 6.45 6:48 AM ECONOMICS TEACHER x10(9)/L Comment: Auto-diff results not valid. Se e manual differential. Specimen Anatomical Collection Method Collection Time Receive d Time (Source) Location / / Volume Laterality Blood (Blood, 06/11/2021 5:44 AM 06/11/20 21 5:55 Venous) ECONOMICS TEACHER AM ECONOMICS TEACHER Laurita Reyes P.A.-C. M.S. LAB BLOOD NON ADD-ON Performing Organization Address City/[facility] Phon e Number [facility] - [address] [place] [address] (ABNORMAL) Morphology Evaluation (Special smear) (06/10/2021 5:44 AM ECONOMICS TEACHER) Analysis Performed At Patho logist Time Signature Neutrophilic Segs 79 (H) 50 - 75 % 06/10/2021 [facility] 7:47 AM ECONOMICS TEACHER Lymphocytes 9 (L) 18 - 42 % 06/10/2021 [facility] 7:47 AM ECONOMICS TEACHER Monocytes 4 2 - 11 % 06/10/2021 [facility] 7:47 AM ECONOMICS TEACHER Eosinophils 1 1 - 3 % 06/10/2021 [facility] 7:47 AM ECONOMICS TEACHER Myelocytes 7 (H) <0.5 % 06/10/2021 [facility] 7:47 AM ECONOMICS TEACHER Nucleated RBC 6 /100 WBC 06/10/2021 DH[facility] 7:47 AM ECONOMICS TEACHER Manual Absolute 2.69 1.56 - 06/10/2021 [facility] Neutrophil Count 6.45 7:47 AM ECONOMICS TEACHER x10(9)/L Comment: ----ADDITIONAL INFORMATION---- The manual absolute neutrophil count is derived from a manual differential count and therefore is not exactly comparable to the automated absolute halie trophil count. Specimen Anatomical Collection Method Collection Time Receive d Time (Source) Location / / Volume Laterality Blood 06/10/2021 5:44 AM 6:27 ECONOMICS TEACHER AM ECONOMICS TEACHER Laurita Reyes P.A.-C., M.S. LAB PATHOLOGY/CYTOLOGY ORDERABLES Performing Organization Address [facility] Phon e Number [facility] - [address] [place] [address] [facility] 200 [facility] Magnesium (06/10/2021 5:44 AM ECONOMICS TEACHER) athologist Signature Magnesium, S 2.3 1.7 - 2.3 06/10/2021 DTL mg/dL 6:58 AM ECONOMICS TEACHER Specimen Anatomical Collection Method Collection Time Receive d Time (Source) Location / / Volume Laterality Blood (Blood, 06/10/2021 5:44 AM 06/10/20 6:39 Venous) ECONOMICS TEACHER AM ECONOMICS TEACHER Laurita Reyes P.A.-C., M.S. LAB BLOOD ADD-ON Performing Organization Address City/[facility] Phon e Number [facility] - [address] [place], [place] [address] [place] [address] [phone] [address] (ABNORMAL) Uric Acid (06/10/2021 5:44 AM ECONOMICS TEACHER) athologist Signature Uric Acid, S 6.6 (H) 2.7 - 6.1 06/10/2021 DTL mg/dL 6:58 AM ECONOMICS TEACHER Specimen Anatomical Collection Method Collection Time Receive d Time (Source) Location / / Volume Laterality Blood (Blood, 06/10/2021 5:44 AM 06/10/20 6:39 Venous) ECONOMICS TEACHER AM ECONOMICS TEACHER Laurita Reyes P.A.-C., M.S. LAB BLOOD ADD-ON Performing Organization Address City/State/[facility] Code Phon e Number [facility] - [address] [place], [place] [address] [place] [address] (ABNORMAL) Phosphorus Inorganic (06/10/2021 5:44 AM ECONOMICS TEACHER) athologist Signature Phosphorus 5.5 (H) 2.5 - 4.5 06/10/2021 DTL (Inorganic), S mg/dL 6:58 AM ECONOMICS TEACHER Specimen Anatomical Collection Method Collection Time Receive d Time (Source) Location / / Volume Laterality Blood (Blood, 06/10/2021 5:44 AM 06/10/20 6:39 Venous) ECONOMICS TEACHER AM ECONOMICS TEACHER Laurita Reyes P.A.-C., M.S. LAB BLOOD ADD-ON Performing Organization Address City/State/ZIP Code Phon e Number [facility] - [address] [place], [place] [address] [facility] [place] [address] Laboratories-[facility] 200 [facility] (ABNORMAL) Basic Metabolic Panel (06/10/2021 5:44 AM ECONOMICS TEACHER) Analysis Performed At Patho logist Time Signature Potassium, S 4.7 3.6 - 5.2 06/10/2021 DTL mmol/L 6:58 AM ECONOMICS TEACHER Sodium, S 141 135 - 145 06/10/2021 DTL mmol/L 6:58 AM ECONOMICS TEACHER Chloride, S 97 (L) 98 - 107 06/10/2021 DTL mmol/L 6:58 AM ECONOMICS TEACHER Bicarbonate, S 35 (H) 22 - 29 06/10/2021 DTL mmol/L 6:58 AM ECONOMICS TEACHER Anion Gap 9 7 - 15 06/10/2021 DTL 6:58 AM ECONOMICS TEACHER BUN (Blood Urea 36 (H) 6 - 21 06/10/2021 DTL Nitrogen), S mg/dL 6:58 AM ECONOMICS TEACHER Creatinine 1.18 (H) 0.59 - 06/10/2021 DTL 1.04 mg/dL 6:58 AM ECONOMICS TEACHER eGFR-Non 53 (L) >=60 06/10/2021 DTL Black/ mL/min/BSA 6:58 AM ECONOMICS TEACHER Georgian Comment: ----ADDITIONAL INFORMATION---- Estimated GFR calculated using the 2009 CKD_EPI creatinine equation. eGFR-Black/ 61 >=60 mL/min/BSA 2020 6:58 AM ECONOMICS TEACHER DTL Comment: ----ADDITIONAL INFORMATION---- Estimated GFR calculated using the 2009 CKD_EPI creatinine equation. Calcium, Total, S 9.2 8.6 - 10.0 mg/dL 06/10/2021 6:58 AM ECONOMICS TEACHER DTL Glucose, S 100 70 - 140 mg/dL 06/10/2021 6:58 AM ECONOMICS TEACHER D TL Specimen Anatomical Collection Method Collection Time Receive d Time (Source) Location / / Volume Laterality Blood (Blood, 06/10/2021 5:44 AM 06/10/20 6:39 Venous) ECONOMICS TEACHER AM ECONOMICS TEACHER Laurita Reyes P.A.-C., M.S. LAB BLOOD ADD-ON Performing Organization Address City/[facility] Phon e Number [facility] - [address], [place] [address] [facility] [place], [place] [address] [place] [address] (ABNORMAL) CBC no call back, reflex T/S HGB <8 (06/10/2021 5:44 AM ECONOMICS TEACHER) [facility] Method Time Signature Hemoglobin 8.4 (L) 11.6 - 06/10/2021 DTL 15.0 g/dL 6:33 AM ECONOMICS TEACHER Hematocrit 27.8 (L) 35.5 - 06/10/2021 DTL 44.9 % 6:33 AM ECONOMICS TEACHER Erythrocytes 3.30 (L) 3.92 - 06/10/2021 DTL 5.13 6:33 AM ECONOMICS TEACHER x10(12)/L MCV 84.2 78.2 - 06/10/2021 DTL 97.9 fL 6:33 AM ECONOMICS TEACHER RBC Distrib Width 22.2 (H) 12.2 - 06/10/2021 DTL 16.1 % 6:33 AM ECONOMICS TEACHER Platelet Count 103 (L) 157 - 371 06/10/2021 DTL x10(9)/L 6:33 AM ECONOMICS TEACHER Leukocytes 3.4 3.4 - 9.6 06/10/2021 DTL x10(9)/L 7:46 AM ECONOMICS TEACHER Comment: Results confirmed by smear. Neutrophils SeeComment 1.56 - 6.45 x10(9)/L 06/10/2021 7:46 AM ECONOMICS TEACHER DTL Comment: Auto-diff results not valid. Se e manual differential. Specimen Anatomical Collection Method Collection Time Receive d Time (Source) Location / / Volume Laterality Blood (Blood, 06/10/2021 5:44 AM 06/10/20 21 6:27 Venous) ECONOMICS TEACHER AM ECONOMICS TEACHER Laurita Reyes P.A.-C. MZahraaS. LAB BLOOD NON ADD-ON Performing Organization Address City/State/[facility] Code Phon e Number [facility] - [address] [place] [address] [facility] [place] [address] [facility]-[address] Transfuse Red Blood Cells : (06/09/2021 5:25 PM ECONOMICS TEACHER) Laurita Reyes P.A.-C., M.S. BLOOD TRANSFUSION ORDER NAGI Transfuse Red Blood Cells : , 1 Units (06/09/2021 5:25 PM ECONOMICS TEACHER) Laurita Reyes P.A.-C., M.S. BLOOD TRANSFUSION ORDER NAGI (ABNORMAL) Uric Acid (06/09/2021 2:05 PM ECONOMICS TEACHER) P athologist Signature Uric Acid, S 6.5 (H) 2.7 - 6.1 06/09/2021 DTL mg/dL 3:15 PM ECONOMICS TEACHER Specimen Anatomical Collection Method Collection Time Receive d Time (Source) Location / / Volume Laterality Blood (Blood, 06/09/2021 2:05 PM 06/09/20 2:49 Venous) ECONOMICS TEACHER PM ECONOMICS TEACHER Laurita Reyes P.A.-C., M.S. LAB BLOOD ADD-ON Performing Organization Address City/[facility] Phon e Number [facility] - [address] (ABNORMAL) Phosphorus Inorganic (06/09/2021 2:05 PM ECONOMICS TEACHER) P athologist Signature Phosphorus 4.9 (H) 2.5 - 4.5 06/09/2021 DTL (Inorganic), S mg/dL 3:15 PM ECONOMICS TEACHER Specimen Anatomical Collection Method Collection Time Receive d Time (Source) Location / / Volume Laterality Blood (Blood, 06/09/2021 2:05 PM 06/09/20 21 2:49 Venous) ECONOMICS TEACHER PM ECONOMICS TEACHER Laurita Reyes P.A.-C., M.S. LAB BLOOD ADD-ON Performing Organization Address City/[facility] Phon e Number [facility] - [address] (ABNORMAL) Basic Metabolic Panel (06/09/2021 2:05 PM ECONOMICS TEACHER) Analysis Performed At Patho logist Time Signature Potassium, S 4.6 3.6 - 5.2 06/09/2021 DTL mmol/L 3:15 PM ECONOMICS TEACHER Sodium, S 141 135 - 145 06/09/2021 DTL mmol/L 3:15 PM ECONOMICS TEACHER Chloride, S 96 (L) 98 - 107 06/09/2021 DTL mmol/L 3:15 PM ECONOMICS TEACHER Bicarbonate, S 37 (H) 22 - 29 06/09/2021 DTL mmol/L 3:15 PM ECONOMICS TEACHER Anion Gap 8 7 - 15 06/09/2021 DTL 3:15 PM ECONOMICS TEACHER BUN (Blood Urea 38 (H) 6 - 21 06/09/2021 DTL Nitrogen), S mg/dL 3:15 PM ECONOMICS TEACHER Creatinine 1.21 (H) 0.59 - 06/09/2021 DTL 1.04 mg/dL 3:15 PM ECONOMICS TEACHER eGFR-Non 51 (L) >=60 06/09/2021 DTL Black/ mL/min/BSA 3:15 PM ECONOMICS TEACHER Georgian Comment: ----ADDITIONAL INFORMATION---- Estimated GFR calculated using the 2009 CKD_EPI creatinine equation. eGFR-Black/ 59 (L) >=60 mL/min/BSA 2020 3:15 PM ECONOMICS TEACHER DTL Comment: ----ADDITIONAL INFORMATION---- Estimated GFR calculated using the 2009 CKD_EPI creatinine equation. Calcium, Total, S 9.3 8.6 - 10.0 mg/dL 06/09/2021 3:15 PM ECONOMICS TEACHER DTL Glucose, S 92 70 - 140 mg/dL 06/09/2021 3:15 PM ECONOMICS TEACHER D TL Specimen Anatomical Collection Method Collection Time Receive d Time (Source) Location / / Volume Laterality Blood (Blood, 06/09/2021 2:05 PM 06/09/20 2:49 Venous) ECONOMICS TEACHER PM ECONOMICS TEACHER Laurita Reyes P.A.-C., M.S. LAB BLOOD ADD-ON Performing Organization Address City/State/ZIP Code Phon e Number [facility] - [address] [place], [place] [address] [facility] [place] [address] Laboratories-[facility] [address] (ABNORMAL) CBC no call back, reflex T/S HGB <8 (06/09/2021 2:05 PM ECONOMICS TEACHER) [facility] gist Method Time Signature Hemoglobin 7.5 (L) 11.6 - 06/09/2021 DTL 15.0 g/dL 2:36 PM ECONOMICS TEACHER Hematocrit 24.4 (L) 35.5 - 06/09/2021 DTL 44.9 % 2:36 PM ECONOMICS TEACHER Erythrocytes 2.87 (L) 3.92 - 06/09/2021 DTL 5.13 2:36 PM ECONOMICS TEACHER x10(12)/L MCV 85.0 78.2 - 06/09/2021 DTL 97.9 fL 2:36 PM ECONOMICS TEACHER RBC Distrib Width 22.5 (H) 12.2 - 06/09/2021 DTL 16.1 % 2:36 PM ECONOMICS TEACHER Platelet Count 119 (L) 157 - 371 06/09/2021 DTL x10(9)/L 2:36 PM ECONOMICS TEACHER Leukocytes 3.1 (L) 3.4 - 9.6 06/09/2021 DTL x10(9)/L 3:11 PM ECONOMICS TEACHER Specimen Anatomical Collection Method Collection Time Receive d Time (Source) Location / / Volume Laterality Blood (Blood, 06/09/2021 2:05 PM 06/09/20 21 2:31 Venous) ECONOMICS TEACHER PM ECONOMICS TEACHER Laurita Reyes P.A.-C., M.S. LAB BLOOD NON ADD-ON Performing Organization Address City/State/ZIP Code Phon e Number [facility] - [address] [place] [phone] [facility] [place] [address] Laboratories-[facility] [address] [facility] (ABNORMAL) Morphology Evaluation (Special smear) (06/09/2021 12:25 AM ECONOMICS TEACHER) [facility] gist Method Time Signature Neutrophilic Segs 73 50 - 75 % 06/09/2021 [facility] Bands 2:01 AM ECONOMICS TEACHER Lymphocytes 10 (L) 18 - 42 % 06/09/2021 DHPM 2:01 AM ECONOMICS TEACHER Monocytes 6 2 - 11 % 06/09/2021 DHPM 2:01 AM ECONOMICS TEACHER Eosinophils 1 1 - 3 % 06/09/2021 [facility] 2:01 AM ECONOMICS TEACHER Basophils 1 0 - 2 % 06/09/2021 DHPM 2:01 AM ECONOMICS TEACHER Metamyelocytes 1 (H) <1 % 06/09/2021 [facility] 2:01 AM ECONOMICS TEACHER Myelocytes 7 (H) <0.5 % 06/09/2021 [facility] 2:01 AM ECONOMICS TEACHER Blasts 1 (H) <1 % 06/09/2021 [facility] 2:01 AM ECONOMICS TEACHER Nucleated RBC 4 /100 WBC 06/09/2021 [facility] 2:01 AM ECONOMICS TEACHER Manual Absolute 2.48 1.56 - 06/09/2021 [facility] Neutrophil Count 6.45 2:01 AM ECONOMICS TEACHER x10(9)/L Comment: ----ADDITIONAL INFORMATION---- The manual absolute neutrophil count is derived from a manual differential count and therefore is not exactly comparable to the automated absolute halie trophil count. Specimen Anatomical Collection Method Collection Time Receive d Time (Source) Location / / Volume Laterality Blood 06/09/2021 12:25 06/09/2021 AM ECONOMICS TEACHER 12:38 AM ECONOMICS TEACHER Laurita Reyes P.A.-C. M.S. LAB PATHOLOGY/CYTOLOGY ORDERABLES Performing Organization Address City/[facility] Phon e Number [facility] - [address] Type and Screen (with reflex Antibody ID) (06/09/2021 12:25 AM ECONOMICS TEACHER) Patholo gist Method Time Signature ABORh A Pos Not 06/09/2021 [facility] applicable 2:43 AM ECONOMICS TEACHER Antibody Negative Negative 06/09/2021 [facility] Screen 2:55 AM ECONOMICS TEACHER Type & Screen 06/12/2021 06/09/2021 [facility] Expiration 23:59 2:43 AM ECONOMICS TEACHER Testing Deidra DEFAULT 06/09/2021 [facility] Location 2:22 AM ECONOMICS TEACHER Specimen Anatomical Collection Method Collection Time Receive d Time (Source) Location / / Volume Laterality Blood 06/09/2021 12:25 06/09/2021 2:22 AM ECONOMICS TEACHER AM ECONOMICS TEACHER Laurita Reyes P.A.-C., M.S. LAB BLOOD BANK TEST ORD ERABLES Performing Organization Address City/[facility] Phon e Number [facility] - [address] [place] [address] [facility] ETRM [place] [id number] [place] [address] [address] [facility] (ABNORMAL) Basic Metabolic Panel (06/09/2021 12:25 AM ECONOMICS TEACHER) Analysis Performed At Patho logist Time Signature Potassium, S 4.9 3.6 - 5.2 06/09/2021 DTL mmol/L 1:19 AM ECONOMICS TEACHER Sodium, S 139 135 - 145 06/09/2021 DTL mmol/L 1:19 AM ECONOMICS TEACHER Chloride, S 97 (L) 98 - 107 06/09/2021 DTL mmol/L 1:19 AM ECONOMICS TEACHER Bicarbonate, S 33 (H) 22 - 29 06/09/2021 DTL mmol/L 1:19 AM ECONOMICS TEACHER Anion Gap 9 7 - 15 06/09/2021 DTL 1:19 AM ECONOMICS TEACHER BUN (Blood Urea 39 (H) 6 - 21 06/09/2021 DTL Nitrogen), S mg/dL 1:19 AM ECONOMICS TEACHER Creatinine 1.20 (H) 0.59 - 06/09/2021 DTL 1.04 mg/dL 1:19 AM ECONOMICS TEACHER eGFR-Non 52 (L) >=60 06/09/2021 DTL Black/ mL/min/BSA 1:19 AM ECONOMICS TEACHER Georgian Comment: ----ADDITIONAL INFORMATION---- Estimated GFR calculated using the 2009 CKD_EPI creatinine equation. eGFR-Black/ 60 >=60 mL/min/BSA 2020 1:19 AM ECONOMICS TEACHER DTL Comment: ----ADDITIONAL INFORMATION---- Estimated GFR calculated using the 2009 CKD_EPI creatinine equation. Calcium, Total, S 9.0 8.6 - 10.0 mg/dL 06/09/2021 1:19 AM ECONOMICS TEACHER DTL Glucose, S 118 70 - 140 mg/dL 06/09/2021 1:19 AM ECONOMICS TEACHER D TL Specimen Anatomical Collection Method Collection Time Receive d Time (Source) Location / / Volume Laterality Blood (Blood, 06/09/2021 12:25 06/09/2021 Venous) AM ECONOMICS TEACHER 12:54 AM ECONOMICS TEACHER Laurita Reyes P.A.-C., M.S. LAB BLOOD ADD-ON Performing Organization Address City/State/ZIP Code Phon e Number [facility] - [address] [place], [place] [address] [facility] [place] [address] [facility] [address] (ABNORMAL) CBC no call back, reflex T/S HGB <8 (06/09/2021 12:25 AM ECONOMICS TEACHER) Patholo gist Method Time Signature Hemoglobin 7.7 (L) 11.6 - 06/09/2021 DTL 15.0 g/dL 12:44 AM ECONOMICS TEACHER Hematocrit 24.9 (L) 35.5 - 06/09/2021 DTL 44.9 % 12:44 AM ECONOMICS TEACHER Erythrocytes 2.94 (L) 3.92 - 06/09/2021 DTL 5.13 12:44 AM ECONOMICS TEACHER x10(12)/L MCV 84.7 78.2 - 06/09/2021 DTL 97.9 fL 12:44 AM ECONOMICS TEACHER RBC Distrib Width 22.3 (H) 12.2 - 06/09/2021 DTL 16.1 % 12:44 AM ECONOMICS TEACHER Platelet Count 112 (L) 157 - 371 06/09/2021 DTL x10(9)/L 12:44 AM ECONOMICS TEACHER Leukocytes 3.4 3.4 - 9.6 06/09/2021 DTL x10(9)/L 2:00 AM ECONOMICS TEACHER Comment: Results confirmed by smear. Neutrophils SeeComment 1.56 - 6.45 x10(9)/L 06/09/2021 2:00 AM ECONOMICS TEACHER DTL Comment: Auto-diff results not valid. Se e manual differential. Specimen Anatomical Collection Method Collection Time Receive d Time (Source) Location / / Volume Laterality Blood (Blood, 06/09/2021 12:25 06/09/2021 Venous) AM ECONOMICS TEACHER 12:38 AM ECONOMICS TEACHER Laurita Reyes P.A.-C., M.S. LAB BLOOD NON ADD-ON Performing Organization Address City/State/ZIP Code Phon e Number [facility] - [address] [place], [place] [address] [facility] [place] [address] [facility] [address] (ABNORMAL) Uric Acid (06/09/2021 12:25 AM ECONOMICS TEACHER) P athologist Signature Uric Acid, S 6.4 (H) 2.7 - 6.1 06/09/2021 DTL mg/dL 1:19 AM ECONOMICS TEACHER Specimen Anatomical Collection Method Collection Time Receive d Time (Source) Location / / Volume Laterality Blood (Blood, 06/09/2021 12:25 06/09/2021 Venous) AM ECONOMICS TEACHER 12:54 AM ECONOMICS TEACHER Laurita Reyes P.A.-C. M.S. LAB BLOOD ADD-ON Performing Organization Address City/State/ZIP Code Phon e Number [id number] [place] [address] (ABNORMAL) Phosphorus Inorganic (06/09/2021 12:25 AM ECONOMICS TEACHER) athologist Signature Phosphorus 4.9 (H) 2.5 - 4.5 06/09/2021 DTL (Inorganic), S mg/dL 1:19 AM ECONOMICS TEACHER Specimen Anatomical Collection Method Collection Time Receive d Time (Source) Location / / Volume Laterality Blood (Blood, 06/09/2021 12:25 06/09/2021 Venous) AM ECONOMICS TEACHER 12:54 AM ECONOMICS TEACHER Laurita Reyes P.A.-C. M.S. LAB BLOOD ADD-ON Performing Organization Address City/[facility]/ZIP Code Phon e Number [phone] [place] [address] Transfuse Red Blood Cells : (06/08/2021 8:21 PM ECONOMICS TEACHER) Laurita Reyes P.A.-C., M.S. BLOOD TRANSFUSION ORDER NAGI Transfuse Red Blood Cells : , 1 Units (06/08/2021 8:21 PM ECONOMICS TEACHER) Laurita Reyes P.A.-C., M.S. BLOOD TRANSFUSION ORDER NAGI (ABNORMAL) Uric Acid (06/08/2021 2:50 PM ECONOMICS TEACHER) P athologist Signature Uric Acid, S 6.6 (H) 2.7 - 6.1 06/08/2021 DTL mg/dL 4:29 PM ECONOMICS TEACHER Specimen Anatomical Collection Method Collection Time Receive d Time (Source) Location / / Volume Laterality Blood (Blood, 06/08/2021 2:50 PM 06/08/20 3:12 Venous) ECONOMICS TEACHER PM ECONOMICS TEACHER Laurita Reyes P.A.-C., M.S. LAB BLOOD ADD-ON Performing Organization Address City/[facility] Code Phon e Number [facility] [address] (ABNORMAL) Phosphorus Inorganic (06/08/2021 2:50 PM ECONOMICS TEACHER) P athologist Signature Phosphorus 5.2 (H) 2.5 - 4.5 06/08/2021 DTL (Inorganic), S mg/dL 4:29 PM ECONOMICS TEACHER Specimen Anatomical Collection Method Collection Time Receive d Time (Source) Location / / Volume Laterality Blood (Blood, 06/08/2021 2:50 PM 06/08/20 3:12 Venous) ECONOMICS TEACHER PM ECONOMICS TEACHER Laurita Reyes P.A.-C., M.S. LAB BLOOD ADD-ON Performing Organization Address City/[facility] Phon e Number [facility] - [address] [place] [address] Magnesium (06/08/2021 2:50 PM ECONOMICS TEACHER) P athologist Signature Magnesium, S 2.3 1.7 - 2.3 06/08/2021 DTL mg/dL 4:29 PM ECONOMICS TEACHER Specimen Anatomical Collection Method Collection Time Receive d Time (Source) Location / / Volume Laterality Blood (Blood, 06/08/2021 2:50 PM 06/08/20 3:12 Venous) ECONOMICS TEACHER PM ECONOMICS TEACHER Laurita Reyes P.A.-C., M.S. LAB BLOOD ADD-ON Performing Organization Address City/State/[facility] Phon e Number [address] (ABNORMAL) Basic Metabolic Panel (06/08/2021 2:50 PM ECONOMICS TEACHER) Analysis Performed At Patho logist Time Signature Potassium, S 5.0 3.6 - 5.2 06/08/2021 DTL mmol/L 4:29 PM ECONOMICS TEACHER Sodium, S 141 135 - 145 06/08/2021 DTL mmol/L 4:29 PM ECONOMICS TEACHER Chloride, S 98 98 - 107 06/08/2021 DTL mmol/L 4:29 PM ECONOMICS TEACHER Bicarbonate, S 33 (H) 22 - 29 06/08/2021 DTL mmol/L 4:29 PM ECONOMICS TEACHER Anion Gap 10 7 - 15 06/08/2021 DTL 4:29 PM ECONOMICS TEACHER BUN (Blood Urea 36 (H) 6 - 21 06/08/2021 DTL Nitrogen), S mg/dL 4:29 PM ECONOMICS TEACHER Creatinine 1.23 (H) 0.59 - 06/08/2021 DTL 1.04 mg/dL 4:29 PM ECONOMICS TEACHER eGFR-Non 50 (L) >=60 06/08/2021 DTL Black/ mL/min/BSA 4:29 PM ECONOMICS TEACHER Georgian Comment: ----ADDITIONAL INFORMATION---- Estimated GFR calculated using the 2009 CKD_EPI creatinine equation. eGFR-Black/ 58 (L) >=60 mL/min/BSA 2020 4:29 PM ECONOMICS TEACHER DTL Comment: ----ADDITIONAL INFORMATION---- Estimated GFR calculated using the 2009 CKD_EPI creatinine equation. Calcium, Total, S 8.8 8.6 - 10.0 mg/dL 06/08/2021 4:29 PM ECONOMICS TEACHER DTL Glucose, S 101 70 - 140 mg/dL 06/08/2021 4:29 PM ECONOMICS TEACHER D TL Specimen Anatomical Collection Method Collection Time Receive d Time (Source) Location / / Volume Laterality Blood (Blood, 06/08/2021 2:50 PM 06/08/20 21 3:12 Venous) ECONOMICS TEACHER PM ECONOMICS TEACHER Lauirta Reyes P.A.-C., M.S. LAB BLOOD ADD-ON Performing Organization Address City/State/ZIP Code Phon e Number [facility] - [address] [place], [place] [address] [facility] [place] [address] [facility] [address] (ABNORMAL) CBC no call back, reflex T/S HGB <8 (06/08/2021 2:50 PM ECONOMICS TEACHER) [facility] Method Time Signature Hemoglobin 7.0 (L) 11.6 - 06/08/2021 DTL 15.0 g/dL 3:03 PM ECONOMICS TEACHER Hematocrit 22.5 (L) 35.5 - 06/08/2021 DTL 44.9 % 3:03 PM ECONOMICS TEACHER Erythrocytes 2.67 (L) 3.92 - 06/08/2021 DTL 5.13 3:03 PM ECONOMICS TEACHER x10(12)/L MCV 84.3 78.2 - 06/08/2021 DTL 97.9 fL 3:03 PM ECONOMICS TEACHER RBC Distrib Width 23.1 (H) 12.2 - 06/08/2021 DTL 16.1 % 3:03 PM ECONOMICS TEACHER Platelet Count 103 (L) 157 - 371 06/08/2021 DTL x10(9)/L 3:03 PM ECONOMICS TEACHER Leukocytes 3.1 (L) 3.4 - 9.6 06/08/2021 DTL x10(9)/L 3:19 PM ECONOMICS TEACHER Specimen Anatomical Collection Method Collection Time Receive d Time (Source) Location / / Volume Laterality Blood (Blood, 06/08/2021 2:50 PM 06/08/20 21 2:58 Venous) ECONOMICS TEACHER PM ECONOMICS TEACHER Laurita Reyes P.A.-C., M.S. LAB BLOOD NON ADD-ON Performing Organization Address City/State/ZIP Code Phon e Number [facility] - [address] [place], [place] [address] [facility] [place] [address] [facility] 200 [facility] Transfuse Red Blood Cells : (06/08/2021 1:39 PM ECONOMICS TEACHER) Laurita Reyes P.A.-C., M.S. BLOOD TRANSFUSION ORDER NAGI Transfuse Red Blood Cells : , 1 Units (06/08/2021 1:39 PM ECONOMICS TEACHER) Laurita Reyes P.A.-C., M.S. BLOOD TRANSFUSION ORDER NAGI (ABNORMAL) Morphology Evaluation (Special smear) (06/08/2021 12:09 AM ECONOMICS TEACHER) Patholo gist Method Time Signature Neutrophilic Segs 68 50 - 75 % 06/08/2021 [facility] and Bands 1:58 AM ECONOMICS TEACHER Lymphocytes 16 (L) 18 - 42 % 06/08/2021 [facility] 1:58 AM ECONOMICS TEACHER Monocytes 3 2 - 11 % 06/08/2021 [facility] 1:58 AM ECONOMICS TEACHER Eosinophils 1 1 - 3 % 06/08/2021 [facility] 1:58 AM ECONOMICS TEACHER Metamyelocytes 4 (H) <1 % 06/08/2021 [facility] 1:58 AM ECONOMICS TEACHER Myelocytes 8 (H) <0.5 % 06/08/2021 [facility] 1:58 AM ECONOMICS TEACHER Nucleated RBC 2 /100 WBC 06/08/2021 [facility] 1:58 AM ECONOMICS TEACHER Manual Absolute 1.97 1.56 - 06/08/2021 [facility] Neutrophil Count 6.45 1:58 AM ECONOMICS TEACHER x10(9)/L Comment: ----ADDITIONAL INFORMATION---- The manual absolute neutrophil count is derived from a manual differential count and therefore is not exactly comparable to the automated absolute halie trophil count. Specimen Anatomical Collection Method Collection Time Receive d Time (Source) Location / / Volume Laterality Blood 06/08/2021 12:09 06/08/2021 AM ECONOMICS TEACHER 12:51 AM ECONOMICS TEACHER Laurita Reyes P.A.-C. M.S. LAB PATHOLOGY/CYTOLOGY ORDERABLES Performing Organization Address City/State/[facility] Code Phon e Number [facility] - [address] [place] [address] [place] [address] [facility] [address] [facility] (ABNORMAL) Comprehensive Metabolic Panel (06/08/2021 12:09 AM ECONOMICS TEACHER) Analysis Performed At Patho logist Time Signature Potassium, S 5.1 3.6 - 5.2 06/08/2021 DTL mmol/L 1:30 AM ECONOMICS TEACHER Sodium, S 141 135 - 145 06/08/2021 DTL mmol/L 1:30 AM ECONOMICS TEACHER Chloride, S 101 98 - 107 06/08/2021 DTL mmol/L 1:30 AM ECONOMICS TEACHER Bicarbonate, S 30 (H) 22 - 29 06/08/2021 DTL mmol/L 1:30 AM ECONOMICS TEACHER Anion Gap 10 7 - 15 06/08/2021 DTL 1:30 AM ECONOMICS TEACHER BUN (Blood Urea 36 (H) 6 - 21 06/08/2021 DTL Nitrogen), S mg/dL 1:30 AM ECONOMICS TEACHER Creatinine 1.27 (H) 0.59 - 06/08/2021 DTL 1.04 mg/dL 1:30 AM ECONOMICS TEACHER eGFR-Non 48 (L) >=60 06/08/2021 DTL Black/ mL/min/BSA 1:30 AM ECONOMICS TEACHER Georgian Comment: ----ADDITIONAL INFORMATION---- Estimated GFR calculated using the 2009 CKD_EPI creatinine equation. eGFR-Black/ 56 (L) >=60 mL/min/BSA 2020 1:30 AM ECONOMICS TEACHER DTL Comment: ----ADDITIONAL INFORMATION---- Estimated GFR calculated using the 2009 CKD_EPI creatinine equation. Calcium, Total, S 8.5 (L) 8.6 - 10.0 mg/dL 06/08/2021 1:30 AM ECONOMICS TEACHER DTL Glucose, S 95 70 - 140 mg/dL 06/08/2021 1:30 AM ECONOMICS TEACHER D TL Protein, Total, S 5.6 (L) 6.3 - 7.9 g/dL 06/08/2021 1:30 A M ECONOMICS TEACHER DTL Albumin, S 3.9 3.5 - 5.0 g/dL 06/08/2021 1:30 AM ECONOMICS TEACHER D TL Aspartate Aminotransferase 24 8 - 43 U/L 06/08/2021 1 :30 AM ECONOMICS TEACHER DTL (AST), S Alkaline Phosphatase, S 44 35 - 104 U/L 06/08/2021 1: 30 AM ECONOMICS TEACHER DTL Alanine Aminotransferase 8 7 - 45 U/L 06/08/2021 1:3 0 AM ECONOMICS TEACHER DTL (ALT), S Bilirubin, Total, S 1.2 <=1.2 mg/dL 06/08/2021 1:30 AM ECONOMICS TEACHER DTL Specimen Anatomical Collection Method Collection Time Receive d Time (Source) Location / / Volume Laterality Blood (Blood, 06/08/2021 12:09 06/08/2021 1:08 Venous) AM ECONOMICS TEACHER AM ECONOMICS TEACHER Laurita Reyes P.A.-C., M.S. LAB BLOOD ADD-ON Performing Organization Address City/State/ZIP Code Phon e Number [facility] - [address] [place], [place] [address] [facility] [place] [address] [facility] [address] (ABNORMAL) CBC no call back, reflex T/S HGB <8 (06/08/2021 12:09 AM ECONOMICS TEACHER) [facility] gist Method Time Signature Hemoglobin 6.4 (L) 11.6 - 06/08/2021 DTL 15.0 g/dL 12:56 AM ECONOMICS TEACHER Hematocrit 21.1 (L) 35.5 - 06/08/2021 DTL 44.9 % 12:56 AM ECONOMICS TEACHER Erythrocytes 2.49 (L) 3.92 - 06/08/2021 DTL 5.13 12:56 AM ECONOMICS TEACHER x10(12)/L MCV 84.7 78.2 - 06/08/2021 DTL 97.9 fL 12:56 AM ECONOMICS TEACHER RBC Distrib Width 24.1 (H) 12.2 - 06/08/2021 DTL 16.1 % 12:56 AM ECONOMICS TEACHER Platelet Count 95 (L) 157 - 371 06/08/2021 DTL x10(9)/L 1:22 AM ECONOMICS TEACHER Leukocytes 2.9 (L) 3.4 - 9.6 06/08/2021 DTL x10(9)/L 1:56 AM ECONOMICS TEACHER Comment: Results confirmed by smear. Neutrophils SeeComment 1.56 - 6.45 x10(9)/L 06/08/2021 1:56 AM ECONOMICS TEACHER DTL Comment: Auto-diff results not valid. Se e manual differential. Specimen Anatomical Collection Method Collection Time Receive d Time (Source) Location / / Volume Laterality Blood (Blood, 06/08/2021 12:09 06/08/2021 Venous) AM ECONOMICS TEACHER 12:51 AM ECONOMICS TEACHER Laurita Reyes P.A.-C., M.S. LAB BLOOD NON ADD-ON Performing Organization Address City/State/ZIP Code Phon e Number [facility] - [address] [place], [place] [address] [facility] [place] [address] [facility] [address] (ABNORMAL) NT-Pro B-Type Natriuretic Peptide (BNP) (06/08/2021 12:08 AM ECONOMICS TEACHER) athologist Signature NT-Pro BNP 67182 (H) <=155 pg/mL 06/08/2021 DTL 1:41 AM ECONOMICS TEACHER Comment: NT-proBNP values less than 300 pg/mL [...] (Blood, 06/08/2021 12:08 06/08/2021 1:08 Venous) AM ECONOMICS TEACHER AM ECONOMICS TEACHER Laurita Reyes P.A.-C., M.S. LAB BLOOD ADD-ON Performing Organization Address City/[facility]/ZIP [facility] Phon e Number [facility] - [address] [place] [address] [place] [address] [address] [facility] (ABNORMAL) Phosphorus Inorganic (06/08/2021 12:08 AM ECONOMICS TEACHER) P athologist Signature Phosphorus 5.5 (H) 2.5 - 4.5 06/08/2021 DTL (Inorganic), S mg/dL 1:41 AM ECONOMICS TEACHER Specimen Anatomical Collection Method Collection Time Receive d Time (Source) Location / / Volume Laterality Blood (Blood, 06/08/2021 12:08 06/08/2021 1:08 Venous) AM ECONOMICS TEACHER AM ECONOMICS TEACHER Laurita Reyes P.A.-C., M.S. LAB BLOOD ADD-ON Performing Organization Address City/[facility] Phon e Number [facility] - [address] [place], [place] [address] [place] [id number] [place] [address] (ABNORMAL) Uric Acid (06/08/2021 12:08 AM ECONOMICS TEACHER) P athologist Signature Uric Acid, S 6.2 (H) 2.7 - 6.1 06/08/2021 DTL mg/dL 1:41 AM ECONOMICS TEACHER Specimen Anatomical Collection Method Collection Time Receive d Time (Source) Location / / Volume Laterality Blood (Blood, 06/08/2021 12:08 06/08/2021 1:08 Venous) AM ECONOMICS TEACHER AM ECONOMICS TEACHER Laurita Reyes P.A.-C., M.S. LAB BLOOD ADD-ON Performing Organization Address City/State/ZIP Code Phon e Number [facility] - [address] [place], [place] [address] [place], [place] [id number] [place] [address] [address] [facility] Haptoglobin (06/08/2021 12:01 AM ECONOMICS TEACHER) athologist Signature Haptoglobin, S 58 30 - 200 06/08/2021 [facility] mg/dL 3:55 PM ECONOMICS TEACHER Specimen Anatomical Collection Method Collection Time Receive d Time (Source) Location / / Volume Laterality Blood 06/08/2021 12:01 06/08/2021 2:00 AM ECONOMICS TEACHER PM ECONOMICS TEACHER Vanda Bates APRN.N.PZahraa, Haydee.NZahraaPZahraa LAB BLOOD A DD-ON Performing Organization Address City/[facility]/ZIP Code Phon e Number [facility] [address] [place], [place] [address] [facility] [place] [address] Laboratory Medicine and Pathology [address] [place] (ABNORMAL) Uric Acid (06/07/2021 4:18 PM ECONOMICS TEACHER) athologist Signature Uric Acid, S 6.2 (H) 2.7 - 6.1 06/07/2021 DTL mg/dL 5:36 PM ECONOMICS TEACHER Specimen Anatomical Collection Method Collection Time Receive d Time (Source) Location / / Volume Laterality Blood (Blood, 06/07/2021 4:18 PM 06/07/20 5:08 Venous) ECONOMICS TEACHER PM ECONOMICS TEACHER Laurita Reyes P.A.-C., M.S. LAB BLOOD ADD-ON Performing Organization Address City/[facility]/ZIP Code Phon e Number [facility] - [address] [place], [place] [address] [facility] [place] [address] [facility] [address] (ABNORMAL) Phosphorus Inorganic (06/07/2021 4:18 PM ECONOMICS TEACHER) athologist Signature Phosphorus 5.4 (H) 2.5 - 4.5 06/07/2021 DTL (Inorganic), S mg/dL 5:36 PM ECONOMICS TEACHER Specimen Anatomical Collection Method Collection Time Receive d Time (Source) Location / / Volume Laterality Blood (Blood, 06/07/2021 4:18 PM 06/07/20 5:08 Venous) ECONOMICS TEACHER PM ECONOMICS TEACHER Laurita Reyes P.A.-C., M.S. LAB BLOOD ADD-ON Performing Organization Address City/State/ZIP Code Phon e Number [facility] - [address] [place], [place] [address] [facility] [place] [address] [facility] [address] [facility] (ABNORMAL) Basic Metabolic Panel (06/07/2021 4:18 PM ECONOMICS TEACHER) Analysis Performed At Patho logist Time Signature Potassium, S 4.8 3.6 - 5.2 06/07/2021 DTL mmol/L 5:36 PM ECONOMICS TEACHER Sodium, S 141 135 - 145 06/07/2021 DTL mmol/L 5:36 PM ECONOMICS TEACHER Chloride, S 101 98 - 107 06/07/2021 DTL mmol/L 5:36 PM ECONOMICS TEACHER Bicarbonate, S 31 (H) 22 - 29 06/07/2021 DTL mmol/L 5:36 PM ECONOMICS TEACHER Anion Gap 9 7 - 15 06/07/2021 DTL 5:36 PM ECONOMICS TEACHER BUN (Blood Urea 34 (H) 6 - 21 06/07/2021 DTL Nitrogen), S mg/dL 5:36 PM ECONOMICS TEACHER Creatinine 1.23 (H) 0.59 - 06/07/2021 DTL 1.04 mg/dL 5:36 PM ECONOMICS TEACHER eGFR-Non 50 (L) >=60 06/07/2021 DTL Black/ mL/min/BSA 5:36 PM ECONOMICS TEACHER Georgian Comment: ----ADDITIONAL INFORMATION---- Estimated GFR calculated using the 2009 CKD_EPI creatinine equation. eGFR-Black/ 58 (L) >=60 mL/min/BSA 2020 5:36 PM ECONOMICS TEACHER DTL Comment: ----ADDITIONAL INFORMATION---- Estimated GFR calculated using the 2009 CKD_EPI creatinine equation. Calcium, Total, S 8.3 (L) 8.6 - 10.0 mg/dL 06/07/2021 5:36 PM ECONOMICS TEACHER DTL Glucose, S 131 70 - 140 mg/dL 06/07/2021 5:36 PM ECONOMICS TEACHER D TL Specimen Anatomical Collection Method Collection Time Receive d Time (Source) Location / / Volume Laterality Blood (Blood, 06/07/2021 4:18 PM 06/07/20 5:08 Venous) ECONOMICS TEACHER PM ECONOMICS TEACHER Laurita Reyes P.A.-C., M.S. LAB BLOOD ADD-ON Performing Organization Address City/State/ZIP Code Phon e Number [facility] - 200 [place], [place] [address] [place] [address] (ABNORMAL) Hemoglobin (06/07/2021 11:17 AM ECONOMICS TEACHER) P athologist Signature Hemoglobin 7.3 (L) 11.6 - 15.0 06/07/2021 DTL g/dL 11:36 AM ECONOMICS TEACHER Specimen Anatomical Collection Method Collection Time Receive d Time (Source) Location / / Volume Laterality Blood (Blood, 06/07/2021 11:17 06/07/2021 Venous) AM ECONOMICS TEACHER 11:31 AM ECONOMICS TEACHER Margy Frazier P.A.-C. LAB BLOOD ADD-ON Performing Organization Address City/State/[facility] Code Phon e Number [facility] [address] [place], [place] [address] [place] [address] Chest Angiogram with IV Contrast (06/07/2021 10:15 AM ECONOMICS TEACHER) Anatomical Region Laterality Modality Chest, Cardiovascular RST LOS, Thoracic N/A Computed Tomography, Computed ARZ LOS, Thoracic FLA LOS, Vascular Luis Daniel graphy Interventional ARZ LOS Specimen (Source) Anatomical Collection Method Collection Time Re ceived Time Location / / Volume Laterality 06/07/2021 10:38 AM ECONOMICS TEACHER Impressions 06/07/2021 11:28 AM ECONOMICS TEACHER 1. No acute pulmonary emboli. 2. Scattered groundglass opacities and m osaic attenuation throughout the lungs. Findings can be compatible with an infec tious/inflammatory process versus pulmonary edema. 3. Small left pleural effusion and peric ardial effusion. 4. Partially visualized abdominal ascite s. Narrative 06/07/2021 11:28 AM ECONOMICS TEACHER EXAM: ??CT CHEST ANGIOGRAM WITH IV CONTRAST [...] Red Blood Cells : (06/07/2021 9:26 AM ECONOMICS TEACHER) Marjorie Kidd APRN, C.N.P., D.N.P. BLOOD TRANS FUSION ORDERABLES Transfuse Red Blood Cells : , 1 Units (06/07/2021 9:26 AM ECONOMICS TEACHER) Marjorie Kidd APRN C.N.P., D.N.P. BLOOD TRANS FUSION ORDERABLES (ABNORMAL) Morphology Evaluation (Special Smear) (06/07/2021 6:41 AM ECONOMICS TEACHER) Component Value Ref Test Analysis Performed At [facility] [employer] Range Method Time Signature Neutrophilic Segs 79 (H) 50 - 75 06/07/2021 DTL and Bands % 8:19 AM ECONOMICS TEACHER Lymphocytes 12 (L) 18 - 42 06/07/2021 DHPM % 8:19 AM ECONOMICS TEACHER Monocytes 1 (L) 2 - 11 % 06/07/2021 DHPM 8:19 AM ECONOMICS TEACHER Metamyelocytes 2 (H) <1 % 06/07/2021 DHPM 8:19 AM ECONOMICS TEACHER Myelocytes 5 (H) <0.5 % 06/07/2021 DHPM 8:19 AM ECONOMICS TEACHER Blasts 1 (H) <1 % 06/07/2021 DHPM 8:19 AM ECONOMICS TEACHER Nucleated RBC 5 /100 WBC 06/07/2021 DHPM 8:19 AM ECONOMICS TEACHER Interpretation Marked 06/07/2021 DHPM dacrocytes 8:19 AM ECONOMICS TEACHER are present. Reviewed by: Tech 06/07/2021 DHPM 8:19 AM ECONOMICS TEACHER Specimen Anatomical Collection Method Collection Time Receive d Time (Source) Location / / Volume Laterality Blood 06/07/2021 6:41 AM 6:41 ECONOMICS TEACHER AM ECONOMICS TEACHER Marjorie Kidd APRN, C.N.P., D.N.P. LAB BLOOD A DD-ON Performing Organization Address City/State/ZIP Code Phon e Number [facility] - [address] [place], [place] [address] [facility] [place] [address] [facility] [address] [facility] [place] [address] [facility] [address] (ABNORMAL) Morphology Evaluation (Special smear) (06/07/2021 5:47 AM ECONOMICS TEACHER) [facility] [employer] Method Time Signature Neutrophilic Segs 75 50 - 75 % 06/07/2021 DHPM and Bands 6:47 AM ECONOMICS TEACHER Lymphocytes 15 (L) 18 - 42 % 06/07/2021 DHPM 6:47 AM ECONOMICS TEACHER Monocytes 2 2 - 11 % 06/07/2021 DHPM 6:47 AM ECONOMICS TEACHER Eosinophils 1 1 - 3 % 06/07/2021 DHPM 6:47 AM ECONOMICS TEACHER Metamyelocytes 1 (H) <1 % 06/07/2021 DHPM 6:47 AM ECONOMICS TEACHER Myelocytes 5 (H) <0.5 % 06/07/2021 [facility] 6:47 AM ECONOMICS TEACHER Blasts 1 (H) <1 % 06/07/2021 [facility] 6:47 AM ECONOMICS TEACHER Nucleated RBC 10 /100 WBC 06/07/2021 [facility] 6:47 AM ECONOMICS TEACHER Manual Absolute 2.93 1.56 - 06/07/2021 [facility] Neutrophil Count 6.45 6:47 AM ECONOMICS TEACHER x10(9)/L Comment: ----ADDITIONAL INFORMATION---- The manual absolute neutrophil count is derived from a manual differential count and therefore is not exactly comparable to the automated absolute halie trophil count. Reviewed by: Tech 06/07/2021 6:47 AM ECONOMICS TEACHER [facility] Specimen Anatomical Collection Method Collection Time Receive d Time (Source) Location / / Volume Laterality Blood 06/07/2021 5:47 AM 5:58 ECONOMICS TEACHER AM ECONOMICS TEACHER Margy Frazier P.A.-C. LAB PATHOLOGY/CYTOLOGY ORDERABLES Performing Organization Address City/[facility] Phon e Number [facility] - [address] Uric Acid (06/07/2021 5:47 AM ECONOMICS TEACHER) athologist Signature Uric Acid, S 6.0 2.7 - 6.1 06/07/2021 DTL mg/dL 6:24 AM ECONOMICS TEACHER Specimen Anatomical Collection Method Collection Time Receive d Time (Source) Location / / Volume Laterality Blood (Blood, 06/07/2021 5:47 AM 06/07/20 6:08 Venous) ECONOMICS TEACHER AM ECONOMICS TEACHER Margy Frazier P.A.-C. LAB BLOOD ADD-ON Performing Organization Address City/[facility] Phon e Number [facility] - [address] DTL [address] (ABNORMAL) Phosphorus Inorganic (06/07/2021 5:47 AM ECONOMICS TEACHER) athologist Signature Phosphorus 5.0 (H) 2.5 - 4.5 06/07/2021 DTL (Inorganic), S mg/dL 6:24 AM ECONOMICS TEACHER Specimen Anatomical Collection Method Collection Time Receive d Time (Source) Location / / Volume Laterality Blood (Blood, 06/07/2021 5:47 AM 06/07/20 6:08 Venous) ECONOMICS TEACHER AM ECONOMICS TEACHER Margy Frazier P.A.-C. LAB BLOOD ADD-ON Performing Organization Address City/[facility] Code Phon e Number [facility] - [address] [place] [address] [facility] [place] [address] Laboratories-[address] (ABNORMAL) Prothrombin Time (PT) (06/07/2021 5:47 AM ECONOMICS TEACHER) Patholo gist Method Time Signature Prothrombin 14.9 (H) 9.4 - 12.5 06/07/2021 DTL Time, P sec 6:22 AM ECONOMICS TEACHER INR 1.3 0.9 - 1.1 06/07/2021 DTL 6:22 AM ECONOMICS TEACHER Comment: ----ADDITIONAL INFORMATION---- Standard intensity warfarin therapeutic range: 2.0 to 3.0 ?? High intensity warfarin therapeutic rang e: 2.5 to 3.5 Specimen Anatomical Collection Method Collection Time Receive d Time (Source) Location / / Volume Laterality Blood (Blood, 06/07/2021 5:47 AM 06/07/20 5:58 Venous) ECONOMICS TEACHER AM ECONOMICS TEACHER Margy Frazier P.A.-C. LAB BLOOD ADD-ON Performing Organization Address City/State/[facility] Code Phon e Number [facility] - [address] [place] [phone] [facility] [place] [address] Laboratories-[address] (ABNORMAL) Magnesium (06/07/2021 5:47 AM ECONOMICS TEACHER) P athologist Signature Magnesium, S 2.4 (H) 1.7 - 2.3 06/07/2021 DTL mg/dL 6:24 AM ECONOMICS TEACHER Specimen Anatomical Collection Method Collection Time Receive d Time (Source) Location / / Volume Laterality Blood (Blood, 06/07/2021 5:47 AM 06/07/20 6:08 Venous) ECONOMICS TEACHER AM ECONOMICS TEACHER Margy Frazier P.A.-C. LAB BLOOD ADD-ON Performing Organization Address City/State/ZIP Code Phon e Number [facility] - [address] [place], [place] [address] [facility] [place] [address] [facility] [address] [facility] (ABNORMAL) Comprehensive Metabolic Panel (06/07/2021 5:47 AM ECONOMICS TEACHER) Analysis Performed At Patho logist Time Signature Potassium, S 4.7 3.6 - 5.2 06/07/2021 DTL mmol/L 6:24 AM ECONOMICS TEACHER Sodium, S 141 135 - 145 06/07/2021 DTL mmol/L 6:24 AM ECONOMICS TEACHER Chloride, S 102 98 - 107 06/07/2021 DTL mmol/L 6:24 AM ECONOMICS TEACHER Bicarbonate, S 30 (H) 22 - 29 06/07/2021 DTL mmol/L 6:24 AM ECONOMICS TEACHER Anion Gap 9 7 - 15 06/07/2021 DTL 6:24 AM ECONOMICS TEACHER BUN (Blood Urea 33 (H) 6 - 21 06/07/2021 DTL Nitrogen), S mg/dL 6:24 AM ECONOMICS TEACHER Creatinine 1.22 (H) 0.59 - 06/07/2021 DTL 1.04 mg/dL 6:24 AM ECONOMICS TEACHER eGFR-Non 51 (L) >=60 06/07/2021 DTL Black/ mL/min/BSA 6:24 AM ECONOMICS TEACHER Georgian Comment: ----ADDITIONAL INFORMATION---- Estimated GFR calculated using the 2009 CKD_EPI creatinine equation. eGFR-Black/ 58 (L) >=60 mL/min/BSA 2020 6:24 AM ECONOMICS TEACHER DTL Comment: ----ADDITIONAL INFORMATION---- Estimated GFR calculated using the 2009 CKD_EPI creatinine equation. Calcium, Total, S 8.5 (L) 8.6 - 10.0 mg/dL 06/07/2021 6:24 AM ECONOMICS TEACHER DTL Glucose, S 123 70 - 140 mg/dL 06/07/2021 6:24 AM ECONOMICS TEACHER D TL Protein, Total, S 5.9 (L) 6.3 - 7.9 g/dL 06/07/2021 6:24 A M ECONOMICS TEACHER DTL Albumin, S 4.3 3.5 - 5.0 g/dL 06/07/2021 6:24 AM ECONOMICS TEACHER D TL Aspartate Aminotransferase 23 8 - 43 U/L 06/07/2021 6 :24 AM ECONOMICS TEACHER DTL (AST), S Alkaline Phosphatase, S 49 35 - 104 U/L 06/07/2021 6: 24 AM ECONOMICS TEACHER DTL Alanine Aminotransferase 9 7 - 45 U/L 06/07/2021 6:2 4 AM ECONOMICS TEACHER DTL (ALT), S Bilirubin, Total, S 1.5 (H) <=1.2 mg/dL 06/07/2021 6:24 AM ECONOMICS TEACHER DTL Specimen Anatomical Collection Method Collection Time Receive d Time (Source) Location / / Volume Laterality Blood (Blood, 06/07/2021 5:47 AM 06/07/20 6:08 Venous) ECONOMICS TEACHER AM ECONOMICS TEACHER Margy Frazier P.A.-C. LAB BLOOD ADD-ON Performing Organization Address City/State/ZIP Code Phon e Number [facility] - [address] [place] [address] [facility] [place] [address] [facility] [address] (ABNORMAL) CBC no call back, reflex T/S HGB <8 (06/07/2021 5:47 AM ECONOMICS TEACHER) [facility] gist Method Time Signature Hemoglobin 6.4 (L) 11.6 - 06/07/2021 DTL 15.0 g/dL 6:05 AM ECONOMICS TEACHER Hematocrit 21.2 (L) 35.5 - 06/07/2021 DTL 44.9 % 6:05 AM ECONOMICS TEACHER Erythrocytes 2.51 (L) 3.92 - 06/07/2021 DTL 5.13 6:05 AM ECONOMICS TEACHER x10(12)/L MCV 84.5 78.2 - 06/07/2021 DTL 97.9 fL 6:05 AM ECONOMICS TEACHER RBC Distrib Width 24.4 (H) 12.2 - 06/07/2021 DTL 16.1 % 6:05 AM ECONOMICS TEACHER Platelet Count 103 (L) 157 - 371 06/07/2021 DTL x10(9)/L 6:05 AM ECONOMICS TEACHER Leukocytes 3.9 3.4 - 9.6 06/07/2021 DTL x10(9)/L 6:46 AM ECONOMICS TEACHER Comment: Corrected for normoblasts. Neutrophils SeeComment 1.56 - 6.45 x10(9)/L 06/07/2021 6:46 AM ECONOMICS TEACHER DTL Comment: Auto-diff results not valid. Se e manual differential. Specimen Anatomical Collection Method Collection Time Receive d Time (Source) Location / / Volume Laterality Blood (Blood, 06/07/2021 5:47 AM 06/07/20 5:58 Venous) ECONOMICS TEACHER AM ECONOMICS TEACHER Margy Frazier P.A.-C. LAB BLOOD NON ADD-ON Performing Organization Address City/State/ZIP Code Phon e Number [facility] - [address] [place] [address] [facility] [place] [address] [facility] [address] [facility] HLA Class II Typing by High Resolution, Recipient (06/07/2021 5:47 AM ECONOMICS TEACHER) Patholo gist Method Time Signature DRB1 - 1 DRB1*09:01 Not 06/15/2021 DBB8 Allele Applicable 4:09 PM ECONOMICS TEACHER DRB1 - 2 DRB1*12:01 Not 06/15/2021 DBB8 Allele Applicable 4:09 PM ECONOMICS TEACHER GHA469 - 1 DRB3*02:02 Not 06/15/2021 DBB8 Allele Applicable 4:09 PM ECONOMICS TEACHER FOP810 - 2 DRB4*01:03 Not 06/15/2021 DBB8 Allele Applicable 4:09 PM ECONOMICS TEACHER DQB1 - 1 DQB1*03:01 Not 06/15/2021 DBB8 Allele Applicable 4:09 PM ECONOMICS TEACHER DQB1 - 2 DQB1*03:03 Not 06/15/2021 DBB8 Allele Applicable 4:09 PM ECONOMICS TEACHER DQA1 - 1 DQA1*03:02 Not 06/15/2021 DBB8 Allele Applicable 4:09 PM ECONOMICS TEACHER DQA1 - 2 DQA1*05:05 Not 06/15/2021 DBB8 Allele Applicable 4:09 PM ECONOMICS TEACHER DPB1 - 1 DPB1*04:01 Not 06/15/2021 DBB8 Allele Applicable 4:09 PM ECONOMICS TEACHER DPB1 - 2 DPB1*04:01 Not 06/15/2021 DBB8 Allele Applicable 4:09 PM ECONOMICS TEACHER DPA1 - 1 DPA1*01:03 Not 06/15/2021 DBB8 Allele Applicable 4:09 PM ECONOMICS TEACHER DPA1 - 2 DPA1*01:03 Not 06/15/2021 DBB8 Allele Applicable 4:09 PM ECONOMICS TEACHER DRB1 HLA-DRB1*12:1 06/15/2021 DBB8 Unresolved 0 4:09 PM ECONOMICS TEACHER Alleles [id number] HLA-DRB3*02:1 06/15/2021 DBB8 Unresolved 44 4:09 PM ECONOMICS TEACHER Alleles DQB1 HLA-DQB1*03:3 06/15/2021 DBB8 Unresolved 58N 4:09 PM ECONOMICS TEACHER Alleles Test Method PCR - Next 06/15/2021 DBB8 Generation 4:09 PM ECONOMICS TEACHER Sequencing Comment: ----ADDITIONAL INFORMATION---- Common, intermediate and well-documented (CIWD) HLA alleles are resolved or listed if not resolved. Listing of ambiguous rare alleles not resolved can be found i n the locuss unresolved field. (Albert ROSENBERG, Cesar J, Nolan K, et al. 2020; 1-16 [email or web address]://doi.org/10.1111/T AN.01176). This test was developed and its performa nce characteristics determined by [facility] in a manner co nsistent with CLIA requirements. This test has not been demetris ared or approved by the U.S. Food and Drug Administration. CLIA: [id number] ??CLIA Deburring Machine Operator: VALENTINA GOLD MD,PhD Specimen Anatomical Collection Method Collection Time Receive d Time (Source) Location / / Volume Laterality Blood (Blood, 06/07/2021 5:47 AM 06/08/20 7:55 Venous) ECONOMICS TEACHER AM ECONOMICS TEACHER Narrative [facility] [place] - 06/15/2021 4:09 PM ECONOMICS TEACHER Specimen Information: Specimen ID: [id number] Specimen Type: Blood Specimen Collection Start Date: ??5:47 AM Specimen Received Date: 06/08/2021 ??7: 55 AM Specimen ID: [id number] Specimen Type: Blood Specimen Collection Start Date: 021 ??5:47 AM Specimen Received Date: 06/08/2021 ??7: 55 AM Margy Frazier P.A.-C. LAB HLA ORDERABLES Performing Organization Address City/State/ZIP Code Phon e Number [facility] - [address] [place] [address] [facility] [place] [address] [facility] [address] [facility] HLA Class I Typing by High Resolution, Recipient (06/07/2021 5:47 AM ECONOMICS TEACHER) [facility] gist Method Time Signature A - 1 Allele A*02:01 Not 06/15/2021 DBB8 Applicable 4:09 PM ECONOMICS TEACHER A - 2 Allele A*24:02 Not 06/15/2021 DBB8 Applicable 4:09 PM ECONOMICS TEACHER B - 1 Allele B*44:02 Not 06/15/2021 DBB8 Applicable 4:09 PM ECONOMICS TEACHER B - 2 Allele B*51:01 Not 06/15/2021 DBB8 Applicable 4:09 PM ECONOMICS TEACHER C - 1 Allele C*05:01 Not 06/15/2021 DBB8 Applicable 4:09 PM ECONOMICS TEACHER C - 2 Allele C*14:02 Not 06/15/2021 DBB8 Applicable 4:09 PM ECONOMICS TEACHER A Unresolved HLA-A*02:01:0 06/15/2021 DBB8 Alleles 1:02L 4:09 PM ECONOMICS TEACHER Test Method PCR - Next 06/15/2021 DBB8 Generation 4:09 PM ECONOMICS TEACHER Sequencing Comment: ----ADDITIONAL INFORMATION---- Common, intermediate and well-documented (CIWD) HLA alleles are resolved or listed if not resolved. Listing of ambiguous rare alleles not resolved can be found i n the locuss unresolved field. (Albert ROSENBERG, Cesar J, Nolan K, et al. 2020; 1-16 https://doi.org/10.1111/T AN.91462). This test was developed and its performa nce characteristics determined by [facility] in a manner co nsistent with CLIA requirements. This test has not been demetris ared or approved by the U.S. Food and Drug Administration. CLIA: [id number] ??CLIA Deburring Machine Operator: VALENTINA GOLD MD,PhD Specimen Anatomical Collection Method Collection Time Receive d Time (Source) Location / / Volume Laterality Blood (Blood, 06/07/2021 5:47 AM 06/08/20 7:55 Venous) ECONOMICS TEACHER AM ECONOMICS TEACHER Narrative [facility] - [facility] - 06/15/2021 4:09 PM ECONOMICS TEACHER Specimen Information: Specimen ID: [id number] Specimen Type: Blood Specimen Collection Start Date: ??5:47 AM Specimen Received Date: 06/08/2021 ??7: 55 AM Specimen ID: [id number] Specimen Type: Blood Specimen Collection Start Date: ??5:47 AM Specimen Received Date: 06/08/2021 ??7: 55 AM Specimen ID: [id number] Specimen Type: Blood Specimen Collection Start Date: ??5:47 AM Specimen Received Date: 06/08/2021 ??7: 55 AM Margy Frazier P.A.-C. LAB HLA ORDERABLES Performing Organization Address City/State/ZIP Code Phon e Number [address] [address] [facility] [place] [address] [facility] [address] [facility] HLA Class II SAB Antibody Screen (06/07/2021 5:47 AM ECONOMICS TEACHER) [facility] Method Time Signature Class II SAB Positive Not Applicable 06/08/2021 DBB8 Overall 3:55 PM ECONOMICS TEACHER Result Class II SAB 0 06/08/2021 DBB8 cPRA 3:55 PM ECONOMICS TEACHER Comment: ----ADDITIONAL INFORMATION---- cPRA is calculated for either HLA class I or II (except DPB1) antibodies with a normalized MFI >2000 u sing published UNOS frequencies (http://optn.transplant.hrsa .gov). ??For convenience, all HLA antibodies with a normalized MFI >500 are listed in the specificity patton. SAB DRB1 Specificity see below 06/08/2021 3:55 PM ECONOMICS TEACHER DBB8 Comment: 7(07:01)[1694], 4(04:04)[1193] Format: Serologic Eq.(DRB1 Mol. Allele)[ Normalized MFI] NOTE: Data is displayed in descending or kesha by Mean Fluorescence Intensity (MFI). ??Serologic equivalents can be di splayed multiple times for different molecular alleles. SAB [id number] Specificity NONE 06/08/2021 3:55 P M ECONOMICS TEACHER DBB8 SAB DQB1 Specificity see below 06/08/2021 3:55 PM ECONOMICS TEACHER DBB8 Comment: 8(A*03:01;B*03:02)[853] Format: Serologic Eq.(DQA1;DQB1 Mol. All char)[Normalized MFI] NOTE: Data is displayed in descending or kesha by Mean Fluorescence Intensity (MFI). ??Serologic equivalents can be di splayed multiple times for different molecular alleles. SAB DPB1 Specificity see below 06/08/2021 3:55 PM ECONOMICS TEACHER DBB8 Comment: 14(A*02:01;B*14:01)[1631], 10(A*02:02;B* 10:01)[1107], 3(A*02:01;B*03:01)[553] Format: Serologic Eq.(DPA1;DPB1 Mol. All char)[Normalized MFI] NOTE: Data is displayed in descending or kesha by Mean Fluorescence Intensity (MFI). ??Serologic equivalents can be di splayed multiple times for different molecular alleles. ----ADDITIONAL INFORMATION---- Method: Luminex Flow Cytometry CLIA: [id number] ??CLIA Deburring Machine Operator: VALENTINA GOLD MD,PhD Specimen Anatomical Collection Method Collection Time Receive d Time (Source) Location / / Volume Laterality Blood (Blood, 06/07/2021 5:47 AM 06/08/20 7:57 Venous) ECONOMICS TEACHER AM ECONOMICS TEACHER Margy Frazier P.A.-C. LAB HLA ORDERABLES Performing Organization Address City/State/ZIP Code Phon e Number [facility] - [address] [place], [place] [address] [facility] [place] [place] [address] [facility] [address] HLA Class I SAB Antibody Screen (06/07/2021 5:47 AM ECONOMICS TEACHER) [facility] Method Time Signature Class I SAB Negative Not Applicable 06/08/2021 DBB8 Overall 3:59 PM ECONOMICS TEACHER Result Class I SAB 0 06/08/2021 DBB8 cPRA 3:59 PM ECONOMICS TEACHER Comment: ----ADDITIONAL INFORMATION---- cPRA is calculated for either HLA class I or II (except DPB1) antibodies with a normalized MFI >2000 u sing published UNOS frequencies (http://optn.transplant.hrsa .gov). ??For convenience, all HLA antibodies with a normalized MFI >500 are listed in the specificity patton. SAB A Specificity NONE 06/08/2021 3:59 PM ECONOMICS TEACHER DBB8 SAB B Specificity NONE 06/08/2021 3:59 PM ECONOMICS TEACHER DBB8 SAB C Specificity NONE 06/08/2021 3:59 PM ECONOMICS TEACHER DBB8 Comment: ----ADDITIONAL INFORMATION---- Method: Luminex Flow Cytometry CLIA: [id number] ??CLIA Deburring Machine Operator: VALENTINA GOLD MD,PhD Specimen Anatomical Collection Method Collection Time Receive d Time (Source) Location / / Volume Laterality Blood (Blood, 06/07/2021 5:47 AM 06/08/20 7:57 Venous) ECONOMICS TEACHER AM ECONOMICS TEACHER Margy Frazier P.A.-C. LAB HLA ORDERABLES Performing Organization Address City/State/ZIP Code Phon e Number [facility] - [facility] [address] [place], [place] [address] [facility] [address] [place] [address] [facility] [address] HLA-DPB1 Confirmatory Typing by Low Resolution, Recipient Buccal Swab (06/07/2021 5:40 AM ECONOMICS TEACHER) [facility] Method Time Signature DPB1 - 1 DPB1*04:01 Not Applicable 06/18/2021 DBB8 Molecular 7:26 AM ECONOMICS TEACHER DPB1 - 2 DPB1*04:01 Not Applicable 06/18/2021 DBB8 Molecular 7:26 AM ECONOMICS TEACHER DPA1 - 1 DPA1*01 Not Applicable 06/18/2021 DBB8 Molecular 7:26 AM ECONOMICS TEACHER DPA1 - 2 DPA1*01 Not Applicable 06/18/2021 DBB8 Molecular 7:26 AM ECONOMICS TEACHER Test Method PCR - 06/12/2021 DBB8 Reverse 9:01 AM ECONOMICS TEACHER SSOP Comment: ----ADDITIONAL INFORMATION---- Molecular HLA typing reported as serolog ical equivalents and low to medium resolution molecular value s. ??For convenience, when not defined in the WHO Nomenclature a laboratory defined serologic equivalent has been provided. CLIA: [id number] ??CLIA Deburring Machine Operator: VALENTINA GOLD MD,PhD Specimen Anatomical Collection Method Collection Time Receive d Time (Source) Location / / Volume Laterality Swab 06/07/2021 5:40 AM 7:55 ECONOMICS TEACHER AM ECONOMICS TEACHER Margy Frazier P.A.-C. LAB HLA ORDERABLES Performing Organization Address City/State/ZIP Code Phon e Number [facility] - [address] [place] [address] [facility] [address] [place] [address] [facility] [address] [facility] [id number] Confirmatory Typing by Low Resolution, Recipient Buccal Swab (06/07/2021 5:40 AM ECONOMICS TEACHER) [facility] Method Time Signature A - 1 A2 Not Applicable 06/12/2021 DBB8 Equivalent 9:01 AM ECONOMICS TEACHER A - 2 A24 Not Applicable 06/12/2021 DBB8 Equivalent 9:01 AM ECONOMICS TEACHER A - 1 A*02 Not Applicable 06/12/2021 DBB8 Molecular 9:01 AM ECONOMICS TEACHER A - 2 A*24 Not Applicable 06/12/2021 DBB8 Molecular 9:01 AM ECONOMICS TEACHER B - 1 B44 Not Applicable 06/12/2021 DBB8 Equivalent 9:01 AM ECONOMICS TEACHER B - 2 B51 Not Applicable 06/12/2021 DBB8 Equivalent 9:01 AM ECONOMICS TEACHER B - 1 B*44 Not Applicable 06/12/2021 DBB8 Molecular 9:01 AM ECONOMICS TEACHER B - 2 B*51 Not Applicable 06/12/2021 DBB8 Molecular 9:01 AM ECONOMICS TEACHER Bw - 1 Bw4 Not Applicable 06/12/2021 DBB8 Equivalent 9:01 AM ECONOMICS TEACHER Bw - 2 Bw4 Not Applicable 06/12/2021 DBB8 Equivalent 9:01 AM ECONOMICS TEACHER DRB1 - 1 DR9 Not Applicable 06/12/2021 DBB8 Equivalent 9:01 AM ECONOMICS TEACHER DRB1 - 2 DR12 Not Applicable 06/12/2021 DBB8 Equivalent 9:01 AM ECONOMICS TEACHER DRB1 - 1 DRB1*09 Not Applicable 06/12/2021 DBB8 Molecular 9:01 AM ECONOMICS TEACHER DRB1 - 2 DRB1*12 Not Applicable 06/12/2021 DBB8 Molecular 9:01 AM ECONOMICS TEACHER Test Method PCR - 06/12/2021 DBB8 Reverse 9:01 AM ECONOMICS TEACHER SSOP Comment: ----ADDITIONAL INFORMATION---- Molecular HLA typing reported as serolog ical equivalents and low to medium resolution molecular value s. ??For convenience, when not defined in the WHO Nomenclature a laboratory defined serologic equivalent has been provided. CLIA: [id number] ??CLIA Deburring Machine Operator: VALENTINA GOLD MD,PhD Specimen Anatomical Collection Method Collection Time Receive d Time (Source) Location / / Volume Laterality Swab (Mouth) 06/07/2021 5:40 AM 7:55 ECONOMICS TEACHER AM ECONOMICS TEACHER Narrative [facility] - 06/12/2021 9:01 AM ECONOMICS TEACHER Specimen Information: Specimen ID: [id number] Specimen Type: Swab Specimen Collection Start Date: ??5:40 AM Specimen Received Date: 06/08/2021 ??7: 55 AM Specimen ID: [id number] Specimen Type: Swab Specimen Collection Start Date: 021 ??5:40 AM Specimen Received Date: 06/08/2021 ??7: 55 AM Specimen ID: [id number] Specimen Type: Swab Specimen Collection Start Date: 021 ??5:40 AM Specimen Received Date: 06/08/2021 ??7: 55 AM Specimen ID: [id number] Specimen Type: Swab Specimen Collection Start Date: ??5:40 AM Specimen Received Date: 06/08/2021 ??7: 55 AM Margy Frazier P.A.-C. LAB HLA ORDERABLES Performing Organization Address City/State/ZIP Code Phon e Number [facility] - [facility] [place] [address] [facility] [address]BB[address] [place] [address] [facility] [address] [facility] (ABNORMAL) Bilirubin, Direct (06/07/2021 5:29 AM ECONOMICS TEACHER) athologist Signature Bilirubin, 0.4 (H) 0.0 - 0.3 06/07/2021 DTL Direct, S mg/dL 7:11 AM ECONOMICS TEACHER Specimen Anatomical Collection Method Collection Time Receive d Time (Source) Location / / Volume Laterality Blood (Blood, 06/07/2021 5:29 AM 06/07/20 6:43 Venous) ECONOMICS TEACHER AM ECONOMICS TEACHER Marjorie Kidd APRN, C.N.P., Abhishek LAB BLOOD A DD-ON Performing Organization Address [facility] Phon e Number [facility] - [address] [place], [place] [address] [place] [address] Transfuse Red Blood Cells : (06/06/2021 10:32 PM ECONOMICS TEACHER) Margy Frazier P.A.-C. BLOOD TRANSFUSION ORDER NAGI Transfuse Red Blood Cells : , 1 Units (06/06/2021 10:32 PM ECONOMICS TEACHER) Margy AlvesCZahraa BLOOD TRANSFUSION ORDER NAGI (ABNORMAL) Hemoglobin (06/06/2021 6:54 PM ECONOMICS TEACHER) athologist [facility] Hemoglobin 6.1 (L) 11.6 - 15.0 06/06/2021 DTL g/dL 7:09 PM ECONOMICS TEACHER Specimen Anatomical Collection Method Collection Time Receive d Time (Source) Location / / Volume Laterality Blood (Blood, 06/06/2021 6:54 PM 06/06/20 7:04 Venous) ECONOMICS TEACHER PM ECONOMICS TEACHER Margy AlvesCZahraa LAB BLOOD ADD-ON Performing Organization Address City/[facility] Code Phon e Number [facility] - [address] (ABNORMAL) NT-Pro B-Type Natriuretic Peptide (BNP) (06/06/2021 6:54 PM ECONOMICS TEACHER) athologist Signature NT-Pro BNP 44359 (H) <=155 pg/mL 06/06/2021 DT 7:47 PM ECONOMICS TEACHER Comment: NT-proBNP values less than 300 pg/mL [...] (Blood, 06/06/2021 6:54 PM 06/06/20 7:16 Venous) ECONOMICS TEACHER PM ECONOMICS TEACHER Margy Frazier P.A.-C. LAB BLOOD ADD-ON Performing Organization Address City/State/ZIP Code Phon e Number [facility] - [address] [place], [place] [address] [facility] [place] [address] Laboratories-[facility] [address] Transfuse Red Blood Cells : (06/06/2021 6:53 PM ECONOMICS TEACHER) Margy Frazier P.A.-C. BLOOD TRANSFUSION ORDER NAGI Transfuse Red Blood Cells : , 1 Units (06/06/2021 6:53 PM ECONOMICS TEACHER) Margy Frazier P.A.-C. BLOOD TRANSFUSION ORDER NAGI SARS Coronavirus 2, Molecular Detection, PCR, Varies Asymptomatic (06/06/2021 5:32 PM ECONOMICS TEACHER) [facility] Method Time Signature COVID-19, Swab, 06/06/2021 DTL PCR, Source Nasopharynx 10:00 PM ECONOMICS TEACHER COVID-19, Undetected Undetected 06/06/2021 DTL PCR, Result 10:00 PM ECONOMICS TEACHER Comment: SARS-CoV-2 RNA absent. This result does not rule out COVID-19 in the patient, as the sensitivity of the test depends o n the timing of the specimen collection and quality of the specimen. Result should be correlated with patient's history and clinical presentat ion. ----ADDITIONAL INFORMATION---- This RT-PCR test using the [employer] SARS-Co V-2 Assay ( [employer].) performed on the [employer] Two Module System has received Emergency Use Authorization (EUA) by the U.S. Food and Drug Administration, and is modified from the it applications manager's instructions with a bridging study. Performance characteristics were verifie d by [facility] in a manner consistent with CLIA requirements. Visit the CDC website: https://www.cdc.g ov/coronavirus/ for the most recent guidelines on Eugene virus testing. Fact Sheet for Healthcare Providers: https://www.fda.gov/media/871630/downloa d Fact Sheet for Patients: https://www.fda.gov/media/562184/downloa d Specimen Anatomical Collection Method Collection Time Receive d Time (Source) Location / / Volume Laterality Varies 06/06/2021 5:32 PM 5:49 (Nasopharynx) ECONOMICS TEACHER PM ECONOMICS TEACHER Margy Frazier P.A.-C. LAB MICROBIOLOGY - GENE RAL ORDERABLES Performing Organization Address [facility] Phon e Number [facility] - [address] VRE PCR (06/06/2021 5:32 PM ECONOMICS TEACHER) [facility] [employer] Method Time Signature Specimen Swab, 06/08/2021 DT Source Perirectal 12:52 PM ECONOMICS TEACHER VRE PCR Negative Negative 06/08/2021 DTL 12:52 PM ECONOMICS TEACHER Comment: ----ADDITIONAL INFORMATION---- This test was developed using an analyte specific reagent. Its performance characteristics were determined by [facility] in a manner consistent with CLIA requirements. This test has not bee n cleared or approved by the U.S. Food and Drug Administration. Specimen Anatomical Collection Method Collection Time Receive d Time (Source) Location / / Volume Laterality Varies 06/06/2021 5:32 PM 6:37 (Perirectal) ECONOMICS TEACHER PM ECONOMICS TEACHER Margy Frazier P.A.-C. LAB MICROBIOLOGY - GENE DAVID ORDERABLES Performing Organization Address [facility] Phon e Number [facility] - [address] (TTE) 2D ECHO DOPPLER COLOR (06/06/2021 5:17 PM ECONOMICS TEACHER) [employer] [facility] [employer] Method Time Signature Ejection Fraction 62 MC [...] / / Volume Laterality 06/06/2021 1:13 PM ECONOMICS TEACHER Impressions 06/06/2021 5:21 PM ECONOMICS TEACHER Anemia, thyrotoxicosis, or another high output state could contribute to the increased Doppler velocities (hemoglobin 5.3 g/dL). ??Echo performed at the patient's bedside ([facility]) with the patient supine due to dyspnea [...] effusion. For the complete report, see the authorGEN Documents. Narrative 06/06/2021 5:21 PM ECONOMICS TEACHER For the complete report, see the authorGEN Documents. Final Impressions 1. Normal left ventricular [...] original. For the complete report, see the authorGEN Documents. Final Impressions 1. Normal left ventricular [...] Echo p erformed at the patient's bedside ([facility]) with the patient supine due to dyspnea [...] Margy C Frazier P.A.-C. CV ECHO PROCEDURES PA DX BONE MARROW BX & ASPIR (06/06/2021 4:00 PM ECONOMICS TEACHER) Specimen (Source) Anatomical Location Collection Method / Collectio n Time Received Time / Laterality Volume Bone Marrow Narrative MMODAL - 06/06/2021 4:00 PM ECONOMICS TEACHER Stehpan Fan R.N. ? 06/06/2021 ??4:00 PM Biopsy [...] Complete with Liver Doppler (06/06/2021 3:11 PM ECONOMICS TEACHER) Anatomical Region Laterality Modality Abdomen, Ultrasound RST LOS, Ultrasound ARZ LOS, Ultrasound FLA N/A Ultrasound LOS Specimen (Source) Anatomical Collection Method Collection Time Re ceived Time Location / / Volume Laterality 06/06/2021 4:11 PM ECONOMICS TEACHER Impressions 06/06/2021 4:31 PM ECONOMICS TEACHER 1. Hepatomegaly. Marked splenomegaly. 2. Hepatic and [...] small volume ascites. Narrative 06/06/2021 4:31 PM ECONOMICS TEACHER EXAM: US ABDOMEN COMPLETE WITH LIVER DOPPLER [...] Lower Extremity Veins Bilateral (06/06/2021 3:06 PM ECONOMICS TEACHER) Anatomical Region Laterality Modality Lower Extremity, Ultrasound RST LOS, Ultrasound ARZ LOS, Champ ateral Ultrasound Ultrasound FLA LOS Specimen (Source) Anatomical Collection Method Collection Time Re ceived Time Location / / Volume Laterality 06/06/2021 3:18 PM ECONOMICS TEACHER Impressions 06/06/2021 3:19 PM ECONOMICS TEACHER Negative for lower extremity DVT. Narrative 06/06/2021 3:19 PM ECONOMICS TEACHER EXAM: US LOWER EXTREMITY VEINS BILATERAL Exam [...] man agement can be found on the [employer] site. Link https://[employer].[facility]/[facility] ic/clinical-answers/cnt-[email or web address]/[facility]-204 1725 Procedure Note Keon Brooks M.B., Ch.B. [...] man agement can be found on the [employer] site. Link https://[employer].[facility]/top ic/clinical-answers/cnt-[email or web address]/cpm-204 1725 IMPRESSION: Negative for lower extremity DVT. Margy Frazier P.A.-C. IMG US PROCEDURES Hematopathology (06/06/2021 1:40 PM ECONOMICS TEACHER) Component Value Ref Test Analysis Performed Pathologis t Range Method Time At Signature 06/11/2021 [facility] 1:37 PM ECONOMICS TEACHER Report Jose Enrique Chong M.D. 06/11/2021 [facility] electronically 1:37 PM signed by ECONOMICS TEACHER I verify that I have examined all relevant slides/materials for the specimen(s) and rendered or confirmed the diagnosis. Gross Description Received in B5 and subsequently placed in formali n, labeled 06/11/2021 [facility] with the patient's name, medical record number, and bone 1:37 PM marrow biopsy are two de la garza-brown bone marrow cores, ECONOMICS TEACHER measuring 0.3 cm in average diameter by 3.2 cm in aggregate length. ??The specimen was decalcified prior to processing. The longest core is bisected and submitted with remaining core in cassette B1. ??Grossed by LMB. 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 See cytogenetics report for complete details. ADDENDUM Molecular analysis for next generation sequencing (NGSHM), bone marrow ([id number]; 06/06/2021): Pathogenic Mutations Detected: 1. CALR: Chr19(GRCh37):g.[id number]; NM_004343.3(CALR):c.1154_1155insTTGTC; p.Jwn679Irakf*47 (54%) 2. SF3B1: Chr2(GRCh37):g.498569273Y>C; NM_012433.2(SF3B1):c.2098A>G; p.Wpr767Ibp (42%) No other pathogenic mutations were detected [...] Comment: REVISED RESULTS Interpretation FINAL DIAGNOSIS 06/27/2021 [facility] Peripheral blood, bone marrow aspirate and biopsy, iliac 2:42 PM ECONOMICS TEACHER crest: ??Persistent chronic myeloid neoplasm with atypical [...] Volume Laterality Varies 06/06/2021 1:40 PM 1:40 ECONOMICS TEACHER PM ECONOMICS TEACHER Narrative This result has an attachment that is no t available. Jimenez Bruce M.D., M.S. LAB SURG PATH ORDERABLES Performing Organization Address City/State/ZIP Code Phon e Number [facility] - [address] [place], [place] [address] [place] [address] [facility] [address] Fibrinogen (06/06/2021 1:28 PM ECONOMICS TEACHER) P athologist Signature Fibrinogen, P 333 200 - 393 06/06/2021 METH mg/dL 1:43 PM ECONOMICS TEACHER Specimen Anatomical Collection Method Collection Time Receive d Time (Source) Location / / Volume Laterality Blood (Blood, 06/06/2021 1:28 PM 06/06/20 1:35 Venous) ECONOMICS TEACHER PM ECONOMICS TEACHER Margy Frazier P.A.-C. LAB BLOOD ADD-ON Performing Organization Address City/[facility]/ZIP Code Phon e Number [facility] - [address] APTT (Activated Partial Thromboplastin Time) (06/06/2021 1:28 PM ECONOMICS TEACHER) P athologist Signature Activated 34 25 - 37 sec 06/06/2021 [facility] Partial 1:45 PM ECONOMICS TEACHER Thrombopl Time, P Specimen Anatomical Collection Method Collection Time Receive d Time (Source) Location / / Volume Laterality Blood (Blood, 06/06/2021 1:28 PM 06/06/20 1:35 Venous) ECONOMICS TEACHER PM ECONOMICS TEACHER Margy Frazier P.A.-C. LAB BLOOD ADD-ON Performing Organization Address [facility] Phon e Number [facility] - [address] (ABNORMAL) Prothrombin Time (PT) (06/06/2021 1:28 PM ECONOMICS TEACHER) Patholo gist Method Time Signature Prothrombin 15.4 (H) 9.4 - 12.5 06/06/2021 [facility] Time, P sec 1:43 PM ECONOMICS TEACHER INR 1.4 0.9 - 1.1 06/06/2021 [facility] 1:43 PM ECONOMICS TEACHER Comment: ----ADDITIONAL INFORMATION---- Standard intensity warfarin therapeutic range: 2.0 to 3.0 ?? High intensity warfarin therapeutic rang e: 2.5 to 3.5 Specimen Anatomical Collection Method Collection Time Receive d Time (Source) Location / / Volume Laterality Blood (Blood, 06/06/2021 1:28 PM 06/06/20 21 1:35 Venous) ECONOMICS TEACHER PM ECONOMICS TEACHER Margy Frazier P.A.-C. LAB BLOOD ADD-ON Performing Organization Address City/[facility]/ZIP Code Phon e Number [facility] - 200 [place], [place] [address] [place] [address] (ABNORMAL) Basic Metabolic Panel (06/06/2021 1:28 PM ECONOMICS TEACHER) athologist Signature Potassium, P 4.9 3.6 - 5.2 06/06/2021 METH mmol/L 2:04 PM ECONOMICS TEACHER Sodium, P 139 135 - 145 06/06/2021 [facility] mmol/L 2:04 PM ECONOMICS TEACHER Chloride, P 103 98 - 107 06/06/2021 [facility] mmol/L 2:04 PM ECONOMICS TEACHER Bicarbonate, P 26 22 - 29 06/06/2021 M[facility] mmol/L 2:04 PM ECONOMICS TEACHER Anion Gap, P 10 7 - 15 06/06/2021 [facility] 2:04 PM ECONOMICS TEACHER BUN (Blood Urea 33 (H) 6 - 21 06/06/2021 [facility] Nitrogen), P mg/dL 2:04 PM ECONOMICS TEACHER Creatinine 1.01 0.59 - 06/06/2021 [facility] 1.04 mg/dL 2:04 PM ECONOMICS TEACHER eGFR-Black/Afri 73 >=60 06/06/2021 M[facility] can [place]ian mL/min/BSA 2:04 PM ECONOMICS TEACHER Comment: ----ADDITIONAL INFORMATION---- Estimated GFR calculated using the 2009 CKD_EPI creatinine equation. eGFR Non-Black/ 64 >=60 mL/min/BSA 2:04 PM ECONOMICS TEACHER METH Comment: ----ADDITIONAL INFORMATION---- Estimated GFR calculated using the 2009 CKD_EPI creatinine equation. Calcium, Total, P 8.6 8.6 - 10.0 mg/dL 06/06/2021 2:04 PM ECONOMICS TEACHER METH Glucose, P 94 70 - 140 mg/dL 06/06/2021 2:04 PM ECONOMICS TEACHER M ETH Specimen Anatomical Collection Method Collection Time Receive d Time (Source) Location / / Volume Laterality Blood (Blood, 06/06/2021 1:28 PM 06/06/20 1:35 Venous) ECONOMICS TEACHER PM ECONOMICS TEACHER Margy Frazier P.A.-C. LAB BLOOD ADD-ON Performing Organization Address City/State/ZIP Code Phon e Number [facility] - [address] [place], [place] [address] [facility] [place] [address] Laboratories-[facility] [address] (ABNORMAL) Phosphorus Inorganic (06/06/2021 1:28 PM ECONOMICS TEACHER) athologist Signature Phosphorus 4.6 (H) 2.5 - 4.5 06/06/2021 DTL (Inorganic), S mg/dL 3:42 PM ECONOMICS TEACHER Specimen Anatomical Collection Method Collection Time Receive d Time (Source) Location / / Volume Laterality Blood (Blood, 06/06/2021 1:28 PM 06/06/20 2:05 Venous) ECONOMICS TEACHER PM ECONOMICS TEACHER Margy Frazier P.A.-C. LAB BLOOD ADD-ON Performing Organization Address City/[facility] Phon e Number [facility] - [address] [place] [address] Uric Acid (06/06/2021 1:28 PM ECONOMICS TEACHER) athologist Signature Uric Acid, S 5.2 2.7 - 6.1 06/06/2021 DTL mg/dL 3:42 PM ECONOMICS TEACHER Specimen Anatomical Collection Method Collection Time Receive d Time (Source) Location / / Volume Laterality Blood (Blood, 06/06/2021 1:28 PM 06/06/20 2:05 Venous) ECONOMICS TEACHER PM ECONOMICS TEACHER Margy Frazier P.A.-C. LAB BLOOD ADD-ON Performing Organization Address City/[facility] Phon e Number [facility] - [address] Thiamine (Vitamin B1), Whole Blood (06/06/2021 1:28 PM ECONOMICS TEACHER) athologist Signature Thiamine 98 70 - 180 06/09/2021 SDSC (Vitamin B1), nmol/L 9:26 AM ECONOMICS TEACHER WB Comment: ----ADDITIONAL INFORMATION---- This test was developed and its performa nce characteristics determined by [facility] in a manner consistent with CLIA requirements. This test has not been cleared or approved by the U.[place] and Drug Administration. Specimen Anatomical Collection Method Collection Time Receive d Time (Source) Location / / Volume Laterality Blood (Blood, 06/06/2021 1:28 PM 06/08/20 9:06 Venous) ECONOMICS TEACHER AM ECONOMICS TEACHER Margy Frazier P.A.-C. LAB BLOOD NON ADD-ON Performing Organization Address City/[facility]/ZIP Code Phon e Number [facility] [address] [place], [place] [address] [facility] [place] [address] Laboratory Medicine and Pathology [address] [place] Lipase (06/06/2021 1:28 PM ECONOMICS TEACHER) athologist Signature Lipase, S 25 13 - 60 U/L 06/06/2021 3:42 DTL PM ECONOMICS TEACHER Specimen Anatomical Collection Method Collection Time Receive d Time (Source) Location / / Volume Laterality Blood (Blood, 06/06/2021 1:28 PM 06/06/20 21 2:05 Venous) ECONOMICS TEACHER PM ECONOMICS TEACHER Margy Frazier P.A.-C. LAB BLOOD ADD-ON Performing Organization Address City/[facility] Phon e Number [facility] - [address] [place], [place] [address] [place] [address] Amylase, Total (06/06/2021 1:28 PM ECONOMICS TEACHER) athologist Signature Amylase, Total, 28 28 - 100 06/06/2021 DTL S U/L 3:42 PM ECONOMICS TEACHER Specimen Anatomical Collection Method Collection Time Receive d Time (Source) Location / / Volume Laterality Blood (Blood, 06/06/2021 1:28 PM 06/06/20 21 2:05 Venous) ECONOMICS TEACHER PM ECONOMICS TEACHER Margy Frazier P.A.-C. LAB BLOOD ADD-ON Performing Organization Address City/[facility]/ZIP Code Phon e Number [facility] - [address] [place], [place] [address] [place] [address] (ABNORMAL) Glucose 6 Phosphate Dehydrogenase Enzyme Activity (06/06/2021 1:28 PM ECONOMICS TEACHER) athologist Signature G6PD Enzyme 20.9 (H) 8.0 - 11.9 06/08/2021 DTL Activity, B U/g Hb 12:07 PM ECONOMICS TEACHER Comment: Foipgyz-8-Fgvzpobfp Dehydrogenase (G6PD) deficiency is classified according to [...] and its performa nce characteristics determined by [facility] in a manner co nsistent with CLIA requirements. This test has not bee n cleared or approved by the U.S. Food and Drug Admin istration. Specimen Anatomical Collection Method Collection Time Receive d Time (Source) Location / / Volume Laterality Blood (Blood, 06/06/2021 1:28 PM 06/06/20 21 2:15 Venous) ECONOMICS TEACHER PM ECONOMICS TEACHER Margy Frazier P.A.-C. LAB BLOOD ADD-ON Performing Organization Address City/State/ZIP Code Phon e Number [facility] - [address] [place], [place] [address] [facility] [place] [address] [facility] [address] ECG 12 Lead (06/06/2021 1:11 PM ECONOMICS TEACHER) P athologist Signature Ventricular Rate 113 BPM MUSE ECG/Min PA Interval 158 ms MUSE QRSD Interval 74 ms MUSE QT Interval 342 ms MUSE QTC Interval 469 ms MUSE P [place] 6 degrees MUSE R [place] 67 degrees MUSE T Wave [place] 2 degrees MUSE Specimen Anatomical Collection Method Collection Time Receive d Time (Source) Location / / Volume Laterality 06/06/2021 1:11 PM 1 1:42 ECONOMICS TEACHER PM ECONOMICS TEACHER Impressions MUSE - 06/06/2021 1:42 PM ECONOMICS TEACHER Sinus tachycardia Nonspecific ST and T wave [...] Hematologic Disorders, Bone Marrow (06/06/2021 10:19 AM ECONOMICS TEACHER) Component Value Ref Test Analysis Performed At [facility] gist Range Method Time Signature Result Summary Abnormal 06/14/2021 DTL 8:04 AM ECONOMICS TEACHER Karyotype 46,XX,del(13)( 06/14/2021 DTL q12q14)[16]/46 8:04 AM ECONOMICS TEACHER ,XX[4] Reason for MPN 06/14/2021 DTL referral 8:04 AM ECONOMICS TEACHER Specimen Bone Marrow 06/14/2021 DTL 8:04 AM ECONOMICS TEACHER Method Culture 06/14/2021 DTL without 8:04 AM ECONOMICS TEACHER mitogens Banding Method Band Resolution: 06/14/2021 DTL <400 8:04 AM ECONOMICS TEACHER Stain Name ? Cells Analyzed Cells ? [...] DATE ?SPECIMEN ?? RESULT 8:0 4 AM ECONOMICS TEACHER 06/01/2020 ??Marrow ? 13q- in 14/20 metaphases Released by Cate Damon 06/14/2021 DTL Dewayne Junior 8:04 AM ECONOMICS TEACHER Interpretation The result is abnormal. 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 This result indicates 8:04 AM ECONOMICS TEACHER persistence or recurrence of this patient's previously described clone. Clinical and pathologic correlation is recommended. This test was ordered in the context of a [facility] pathology consultation/case (#[id number]), and this result should be interpreted within the context of the pathology consultation/report. Specimen Anatomical Collection Method Collection Time Receive d Time (Source) Location / / Volume Laterality Bone Marrow 06/06/2021 10:19 06/08/2021 AM ECONOMICS TEACHER 11:04 AM ECONOMICS TEACHER Narrative This result has an attachment that is no t available. Jimenez Bruce M.D., M.S. LAB GENETIC TESTING Performing Organization Address City/State/ZIP Code Phon e Number [facility] - [address] [place] [address] [facility] [place] [address] [facility] [address] [employer]co[employer] NGS for Myeloid Neoplasms (06/06/2021 10:19 AM ECONOMICS TEACHER) Component Value Ref Test Analysis Performed Pathologis t Range Method Time At Signature Specimen Type Bone marrow 06/26/2021 DTL 2:33 PM ECONOMICS TEACHER Indication for PMF 06/26/2021 DTL Test 2:33 PM ECONOMICS TEACHER NGSHM Result See Interpretation 06/26/2021 DTL 2:33 PM ECONOMICS TEACHER Pathogenic 1. CALR: Chr19(GRCh37):g.[id number]_13054628insTTGTC; 06/26/2021 DTL Mutations NM_004343.3(CALR):c.1154_1155insTTGTC; p.Lwa604Acqkk*4 7 (54%) 2:33 PM Detected ECONOMICS TEACHER 2. SF3B1: Chr2(GRCh37):g.992690218I>C; NM_012433.2(SF3B1):c. 2098A>G; p.Qdj869Nyg (42%) No other pathogenic mutations were detected [...] DTL at the following sites: 2:33 PM ECONOMICS TEACHER 1). ClinicalTrials.gov: http://clinicaltrials.gov/ct2/search/advanced 2). [facility]: http://[email or web address]/research/clinical-trials 3). [employer]: http://www.cancer.gov/clinicaltrials/search 4). Molecular Match: https://www.molecular[employer]as [employer].com/ Variants of None 06/26/2021 DTL Unknown 2:33 PM Significance The VUS variants listed here (with approximate variant allele %) are not ECONOMICS TEACHER (VUS) sufficiently characterized in the curren t literature and are therefore of uncertain clinical significance at this time. They are repor latonya here for future reference in the event they become clinic ally significant in the light of new scientific data. Additional None 06/26/2021 DTL Information 2:33 PM ECONOMICS TEACHER Method DNA is extracted from the peripheral blood or bone mar row sample and 06/26/2021 DTL following library preparation by hybrid capture, subjected to next generation 2:33 PM sequencing (NGS) with post-sequencing analysis o f tumor-associated mutations. ECONOMICS TEACHER Performance characteristics of NGS panel: Single base substitutions: accuracy >99%; reproducibility 10 0% (intra- and interassay); sensitivity 5-10% variant allele fraction wit h a minimum depth coverage of 250X. Insertion/deletion events: accuracy >99%; reproducibility 10 0% (intra- and interassay); sensitivity 5-10% variant allele fraction wit h a minimum depth coverage of 250X. This test was developed and its performance characteristics determined by [facility] in a manner consistent with CLIA requireme nts. This test has not been cleared or approved by the U.S. Food and Drug Administr atreplaced by [facility]. Disclaimer CLINICAL DISCLAIMER 06/26/2021 DTL Mutation calls detected between 5-10% variant allele f ractions (VAF) may 2:33 PM indicate low-level (i.e. subclonal) tumor populations, although the clinical ECONOMICS TEACHER significance of these findings may not be [...] clearly distinguishable from tu mor-associated mutations (PMID [id number] 37). ??Prior treatment for hematologic malignancy could [...] insertion/deletion (indel) events , copy number alterations (SOAP GRINDER) and gene translocation events are not dete cted by this assay. OncoHeme Panel ANKRD26 ??([id number]) 5'UT R, exons 1-4, intron c.172, ??ASXL1 ??(NM_[id number]) 06/26/2021 DTL Gene list exons 10-13, ??BCOR ??([id number]) exons 4-15, ??CALR (NM_004343.3) exon 9, 2:33 PM CBL ??(NM_005188.3) intron 7 last 100bps before start of e xon 8, exon 8, ECONOMICS TEACHER intron 8, and exon 9, ??CEBP A [...] 06/26/2021 DTL Keon Su, 2:33 PM M.Juan ECONOMICS TEACHER Interpretation These results are considered preliminary and require complete integration 06/26/2021 DTL with the current pathology case [id number] for final i nterpretation. ??The 2:33 PM result should NOT be interpreted in isolation for the purposes of diagnosis ECONOMICS TEACHER or clinical management. 1. CALR: Chr19(GRCh37):[id number]; NM_004343.3(CALR):c.1154_1155insTTGTC; p.Ewc738Xsjnb*47 Normal gene/protein function : The ??CALR ??gene, located on chromosome 19p13.2, encodes for calreticulin, a multifunctional protein playing roles in endoplasmic reticulum (ER) protein folding, calcium homeosta sis, cellular proliferation, apoptosis and immunogenic cell (Jose E parham et al., 2013, [id number]). Mutation effect: The p.Upv656Pojfb*47 frameshift alteration results in a 5 base-pair [...] a C-terminus neoepitope (Jocy et al., 2013, 97735831; Callie hannon t al., 2013, 14093531; Asya et al., 2019, 86572605). CALR mutations have been identified in the neoplastic hematopoietic stem and progenitor cells. The mu tant CALR protein has been shown to bind and constitutively activate MPL and t he downstream ELSI-STAT pathway. The interaction between the mutant CALR an d MPL occurs presumptively through a CALR conformational change ind uced by the C-terminus neoepitope (Araki et al., 2016, 85542938; 2017, 67285740; Clara marino et al., 2016, 75938262). It has been reported that CALR type 1/lik e and type 2/like mutants were sufficient to induce a MPN phenotype in r etroviral mouse models (Nestor et al., 2016, 86884085; Wang et al., 2019, 788 76411). Disease associations: Frameshift indel mutations in CA [...] chronic myeloid leukemia (3%)(Klkurt et al., 2013, 39647779; Sharonia et al., 2013, 55759004; Kaye et al., 20 14, 93754178; Rotlouisao et al., 2014, ??09819877; Tefferi et al., 2014, 86470978). Therapeutic implications: Currently, there is no therapy [...] e to or intolerance of hydroxyurea (https://www.accessdata.fda.gov/drugsatf da_docs/label/671081o924gnw.pdf). Ruxolitinib demonstrated efficacy in improving constituti onal symptoms and reducing spleen size (Connie et al., 2012, 85897508; Hansel bailey et al., 2012, 77052141). In a phase 2 clinical trial, it demonstrate d modest antileukemic activity as a single agent in patients wi th refractory post-MPN AML (Gloria et al., 2012, 74202246). The FDA has als o approved fedratinib, a JAK2 inhibitor that reduces phosphorylation of STAT3/5, for the treatment of adults with intermediate-2 or high-risk primary or second kasie MF (i.e. post-polycythemia vera or post-essential thrombocythemia MF) (https://www.accessdata.fda.gov/drugsatf da_docs/label/280932y916wzm.pdf). 2. SF3B1: Chr2(GRCh37):g.232075120A>C; NM_012433.2(SF3B1):c. 2098A>G; p.Reu471Ppp Normal gene/protein function: The SF3B1 gene, located on c hromosome 2q33.1, encodes subunit 1 of the splicing factor 3b protein co mplex. This complex is a member of the RNA spliceosome and is involved in 3' splice site recognition and pre-mRNA processing during gene campus executive director (Milo et al., 2014, 32661384; Natanael et al., 2013, 58724770; Kassie et al., 20 11, 23643082). Mutation effect: The missense c.2098A>G (p.K700E) vari ant occurs commonly in hematologic neoplasms and accounts for more than half of woo atic SF3B1 mutations. Mutations in SF3B1 contribute to tumorigenesis in hematologic malignancies through induction of abnormal trans cription and alternative gene splicing (Milo et al., 2014, 62227665; Natanael et al. , 2013, 88064045; Kassie et al., 2011, 87999862). Disease associations: Somatic mutations in SF3B1 have been identified in both myeloid and lymphoid tumors with similar mutation distributi on (Natanael et al., 2013, 81961723; Wan and Magana, 2013, 29260049; Tobin chavez et al., 2011, 38580893; Thierryti et al., 2011, 52294794). SF3B1 is mutate d in 20-28% of myelodysplastic syndrome (MDS) and is particularly prevalent (>80%) in MDS with ring sideroblasts (MDS-RS) and the myeloproliferative/m yelodysplastic neoplasm refractory anemia with ring sideroblasts associated with ??marked thrombocytosis (MDS/MPN-RS-T)(Mame and Stui, 201 5, 97153577; Janine et al., 2015, 35594204; Chase et al.,2013, 43920210). The majority of studies showed good prognosis in AT7Q5-ilcgrjd l ow-risk MDS(Janine et al., 2015, 04094830; Janine et al., 2014, 88155841; Hattie et al., 2015, 00049634; Natanael et al., 2013, 40199187; Mame and Stu fairbanks, 2015, 21058892). BX3X8-bniutm MDS has been proposed as a distinc t disease subtype by the International Working Group for the Prognosis of MDS with specified diagnostic and exclusion criteria (Janine et al., 2020, 3 2785025). In acute myeloid leukemia (AML), SF3B1 mutations are seen in approximately 11% of secondary AML and only 1% of de moe AML; they are highly associated with secondary AML and a worse clinical outcome (Jose D dickerson et al., 2015, 00680733). In chronic lymphocytic leukemia (CLL), SF3B1 mutations are s een in approximately 10-15% of cases and are more commonly as sociated with advanced disease and poor prognosis (Colin and Magana, 2013, 23 835851; Natanael et al., 2013, 06944207). Therapeutic implications: There is no currently available [...] cell (RBC) units over 8 weeks (https://www.fda.gov/drugs/resources-inf rjwgwnrq-lewlfkxb-zxtmf/ixl-qtvxiyfp-g qsogggmmpmr-dgbd-davygr-adults-mds). Specimen Anatomical Collection Method Collection Time Receive d Time (Source) Location / / Volume Laterality Varies 06/06/2021 10:19 06/08/2021 AM ECONOMICS TEACHER 11:36 AM ECONOMICS TEACHER Narrative This result has an attachment that is no t available. Jimenez Bruce M.D., M.S. LAB GENETIC TESTING Performing Organization Address City/State/ZIP Code Phon e Number [facility] - [address] [place], [place] [address] [place] [address] [facility] [address] Cytomegalovirus Ab, IgM and IgG (06/06/2021 9:27 AM ECONOMICS TEACHER) Patholo gist Method Time Signature Cytomegalovirus Ab, Negative Negative 06/08/2021 [facility] IgM, S 9:39 AM ECONOMICS TEACHER Cytomegalovirus Ab, Negative Negative 06/08/2021 [facility] IgG, S 9:39 AM ECONOMICS TEACHER Specimen Anatomical Collection Method Collection Time Receive d Time (Source) Location / / Volume Laterality Blood (Blood, 06/06/2021 9:27 AM 06/06/20 5:55 Venous) ECONOMICS TEACHER PM ECONOMICS TEACHER Margy Frazier P.A.-C. LAB MICROBIOLOGY - BLOO D ORDERABLES Performing Organization Address City/State/ZIP Code Phon e Number [facility] [address] [place], [place] [address] [facility] [place] [address] Laboratory Medicine and Pathology [address] [...] tablet 1,000 mg Given 06/10/2021 4:09 PM ECONOMICS TEACHER 1,000 mg (TYLENOL) 1,000 mg, oral, Once, On Fri06/10/21 at 1615, For 1 dose allopurinoL tablet 300 mg (ZYLOPRIM) Given 06/11/2021 8:25 AM ECONOMICS TEACHER 300 mg 300 mg, oral, Daily, First dose on Fri06/06/21 at 1415 Given 06/10/2021 10:18 AM ECONOMICS TEACHER 300 mg Given 06/09/2021 9:24 AM ECONOMICS TEACHER 300 mg calcium acetate(phosphat bind) capsule Given 06/09/2021 4:24 PM ECONOMICS TEACHER 1,334 mg 1,334 mg (PHOSLO) 1,334 mg, oral, 3 times daily with meals, First dose on Fri06/08/21 at 0800, 667 mg calcium acetate contains 169 mg of elemental calcium Given 06/09/2021 9:23 AM ECONOMICS TEACHER 1,334 mg Given 06/08/2021 6:46 PM ECONOMICS TEACHER 1,334 mg calcium acetate(phosphat bind) capsule Given 06/11/2021 11:55 AM ECONOMICS TEACHER 2,001 mg 2,001 mg (PHOSLO) 2,001 mg, oral, 3 times daily with meals, First dose (after last modification) on Fri06/10/21 at 0800, 667 mg calcium acetate contains 169 mg of elemental calcium Given 06/11/2021 8:25 AM ECONOMICS TEACHER 2,001 mg Given 06/10/2021 5:35 PM ECONOMICS TEACHER 2,001 mg calcium carbonate chewable tablet Given 06/10/2021 4:4 6 PM ECONOMICS TEACHER 400 mg of calcium 400 mg of calcium (TUMS) 400 mg of calcium, oral, 3 times daily PRN, indigestion, heartburn, Starting on Fri06/06/21 at 1352, Doses listed are in mg of elemental calcium. Take with food. 500 mg calcium carbonate contains 200 mg of elemental calcium. enoxaparin injection 40 mg Given 06/11/2021 8:25 AM ECONOMICS TEACHER 40 mg Right Upper Abdomen (LOVENOX) 40 mg, subcutaneous, Every 24 hours scheduled, First dose on Fri06/06/21 at 1400 Given 06/10/2021 10:18 AM ECONOMICS TEACHER 40 mg Righ t Lower Abdomen Given 06/09/2021 9:24 AM ECONOMICS TEACHER 40 mg Left Upper Abdomen folic acid tablet 400 mcg Given 06/11/2021 8:26 AM ECONOMICS TEACHER 400 mcg 400 mcg, oral, Daily, First dose on Aruna 06/07/21 at 0900 Given 06/10/2021 10:19 AM ECONOMICS TEACHER 400 mcg Given 06/09/2021 9:24 AM ECONOMICS TEACHER 400 mcg furosemide 1 mg/mL in NaCl 0.9% 100 New Bag 06/07/2021 8:47 AM ECONOMICS TEACHER 5 mg/hr 5 mL/hr mL infusion (LASIX) 2.5 mg/hr (2.5 mL/hr), intravenous, Continuous, Starting on Fri06/06/21 at 1815, Provider to titrate, goal of being net negative 2L in 24 hours Do NOT refrigerate., Type: Do Not Titrate Rate/Dose Change 06/07/2021 5:47 AM ECONOMICS TEACHER 5 mg/hr 5 mL/hr New Bag 06/06/2021 7:57 PM ECONOMICS TEACHER 10 mg/hr 10 mL/hr furosemide 1 mg/mL in Rate/Dose Verify 06/09/2021 5:00 PM 2.5 mg/hr 2.5 mL/hr NaCl 0.9% 100 mL infusion ECONOMICS TEACHER (LASIX) 2.5 mg/hr (2.5 mL/hr), intravenous, Continuous, Starting on Aruna 06/07/21 at 1530, Do NOT refrigerate., Type: Do Not Titrate Rate/Dose Change 06/09/2021 4:09 PM ECONOMICS TEACHER 2.5 mg/hr 2.5 mL/hr New Bag 06/09/2021 8:19 AM ECONOMICS TEACHER 5 mg/hr 5 mL/hr furosemide injection 40 mg (LASIX) Given 06/06/2021 4:17 PM ECONOMICS TEACHER 40 mg 40 mg, intravenous, Once, On Fri06/06/21 at 1400, For 1 dose, Following pRBC furosemide injection 40 mg (LASIX) Given 06/11/2021 4:03 PM ECONOMICS TEACHER 40 mg 40 mg, intravenous, Once, On 06/11/21 at 1530, For 1 dose, After blood Adults: Doses less than 120 mg: IV push over 20 mg/minute. Doses 120 mg or greater: IVPB at 4 mg/minute. Peds/Neonates: Doses less than 120 mg over 0.5 mg/kg/minute. Doses 120 mg or greater: IVPB at 4 mg/minute. influenza quadrivalent (PF) (6 Given 06/06/2021 6:20 PM ECONOMICS TEACHER 0.5 mL Left Deltoid months & older) vaccine 0.5 mL (FLUZONE/FLUARIX) 0.5 mL, intramuscular, Once, On Fri06/06/21 at 1500, For 1 dose iohexoL 350 mg iodine/mL solution 1-200 mL Given 06/07/2021 10:16 AM ECONOMICS TEACHER 100 mL (OMNIPAQUE) 1-200 mL, intravenous, Once in imaging, contrast, Starting on Aruna 06/07/21 at 1015, For 1 dose, Imaging Protocol Orders, Dose per Radiant Medication Guidelines LORazepam tablet 1 mg (ATIVAN) Given 06/11/2021 9:46 AM ECONOMICS TEACHER 1 mg 1 mg, oral, 3 times daily PRN, anxiety, Starting on Fri06/06/21 at 2039 Given 06/10/2021 8:38 PM ECONOMICS TEACHER 1 mg Given 06/09/2021 9:18 PM ECONOMICS TEACHER 1 mg LORazepam tablet 1 mg (ATIVAN) Given 06/10/2021 8:37 PM ECONOMICS TEACHER 1 mg 1 mg, oral, Daily at bedtime, First dose (after last modification) on Fri06/06/21 at 2100 Given 06/09/2021 9:17 PM ECONOMICS TEACHER 1 mg Given 06/08/2021 9:42 PM ECONOMICS TEACHER 1 mg melatonin tablet 5 mg 5 mg, oral, Bedtime PRN, sleep, Starting on Fri at 1548 morphine ER tablet 15 mg (MS CONTIN) Given 06/10/2021 8:37 PM ECONOMICS TEACHER 15 mg 15 mg, oral, Daily at bedtime, First dose on Fri06/06/21 at 2100, Swallow whole. Do NOT crush, chew, or split tablet. Given 06/09/2021 9:18 PM ECONOMICS TEACHER 15 mg Given 06/08/2021 9:40 PM ECONOMICS TEACHER 15 mg morphine ER tablet 60 mg (MS CONTIN) Given 06/11/2021 8:25 AM ECONOMICS TEACHER 60 mg 60 mg, oral, Every 12 hours, First dose on Fri06/06/21 at 2100, Swallow whole. Do NOT crush, chew, or split tablet. Given 06/10/2021 8:37 PM ECONOMICS TEACHER 60 mg Given 06/10/2021 10:18 AM ECONOMICS TEACHER 60 mg naloxone injection 0.4 mg (NARCAN) [...] packet 17 g Given 06/07/2021 8:52 AM ECONOMICS TEACHER 17 g (MIRALAX) 17 g, oral, Daily, [...] 1-1 00 mL Given 06/07/2021 10:16 AM ECONOMICS TEACHER 30 mL 1-100 mL, intravenous, Once, On Aruna 06/07/21 at 1030, For 1 dose, Imaging Protocol Orders technetium Tc 99m sulfur Given 06/11/2021 10:10 AM 14.2 millicur ies Right Hand colloid solution (Tc-99m ECONOMICS TEACHER SULFUR COLLOID) 14.2 millicurie, intravenous, Once, On 06/11/21 at 1015, For 1 dose torsemide tablet 20 mg (DEMADEX) Given 06/11/2021 8:25 AM ECONOMICS TEACHER 20 mg 20 mg, oral, Daily, First dose on 06/10/21 at 1245 Given 06/10/2021 12:58 PM ECONOMICS TEACHER 20 mg documented in this encounter Active and Recently Administered Medications Times are shown in ECONOMICS TEACHER. Scheduled Medication Order 06/09/2021 06/10/2021 06/11/2021 acetaminophen [...] Dennison, R.N.) 1019 (Given - Provider: Elsa Stevens R.N.) 0826 (Given - Provider: Mariann Martin [...] COVID19 Pending 06/06/2021 06/06/2021 06/06/2021 10:01 PM ECONOMICS TEACHER documented as of this encounter Care Teams Game Artist Relationship Specialty Start Date End Date None Reported, Pcp PCP - General Family Medicine 02/16/21 documented as of this encounter
--- OUTSIDE RECORDS SUMMARY | 2022-05-02 12:32 | XMS_ITS | Encounter Summary ---
:1970 Author Organization [facility] Address [address] [place] [address] Care Team Providers Name Role Phone None Reported, Pcp Primary Care Provider Unavailable Encounter Details Date Type Department Care Team Description 06/11/2021 Orders Only [facility], Laurita Reyes Flu id Overload [facility], N, [facility]C., M. S. Unspecified (Primary [facility], [address]) Seventh Floor [place], [place] [address] [address] [place], [place] [phone] (Work) [phone] Social History Tobacco Use Types Packs/Day Years [...] at Date Recorded Female 07/24/2021 11:03 AM COMBAT CONTROL documented as of this encounter Plan of Treatment Not on filedocumented as of this encounter Visit Diagnoses Diagnosis Fluid Overload Unspecified - Primary documented in this encounter Care Teams Operating Room Aide Relationship Specialty Start Date End Date None Reported, Pcp PCP - General Family Medicine 02/16/21 documented as of this encounter
--- OUTSIDE RECORDS SUMMARY | 2022-05-02 12:32 | XMS_ITS | Encounter Summary ---
:1970 Author Organization [facility] Address [address] [place] [address] Care Team Providers Name Role Phone None Reported, Pcp Primary Care Provider Unavailable Encounter Details Date Type Department Care Team Description 06/11/2021 Orders Only Department of Lanette Loera on Tricuspid (Primary Dx); Cardiovascular Medicine Dewayne Elizondo Fluid Overload Unspecified in [facility] [place] [address] [facility] [address] [place] [phone] Social History Tobacco Use Types Packs/Day Years [...] at Date Recorded 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
--- OUTSIDE RECORDS SUMMARY | 2022-05-02 12:33 | XMS_ITS | Encounter Summary ---
:1970 Author Organization [facility] Address [address] [place] [address] Care Team Providers Name Role Phone Unavailable Primary Care Provider Unavailable Reason for Referral Outpatient (Routine) - Closed Specialty Diagnoses / Procedures Referred By Contact Refer red To Contact Hematology Oncology Janusz Govea [place] [facility] M.B.B.SZahraa [address] [place] [phone] Referral ID Status Reason Start Date Expiration Date Visits Requ ested Visits Authorized [id number] Closed 02/12/2021 02/12/2022 1 1 Scheduling Instructions 8 am on 02/16 Encounter Details Date Type Department Care Team Description 02/12/2021 Orders Only Division of Hematology Janusz Govea M yelofibrosis (HCC) in [place], M.B.B.S. 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 LAB BLOOD ADD-ON Performing Organization Address City/[facility] Phon e Number [facility] - [address] (ABNORMAL) LD (Lactate Dehydrogenase) (02/16/2021 7:14 AM CDT) [facility] Method Time Signature Lactate 829 (H) 122 - 222 02/16/2021 DTL Dehydrogenase U/L 8:20 AM CDT (LD), S Specimen Anatomical Collection Method Collection Time Receive d Time (Source) Location / / Volume Laterality Blood (Blood, 02/16/2021 7:14 AM 02/17/20 7:43 Venous) CDT AM CDT Reemaia Xuan M.B.B.S. LAB BLOOD NON ADD-ON Performing Organization Address City/[facility] Phon e Number [facility] - 200 [place], [place] [address] [facility] [address] (ABNORMAL) Morphology Evaluation (Special Smear) (02/16/2021 7:14 AM CDT) [facility] [employer] Method Time Signature Neutrophilic Segs 81 (H) 50 - 75 % 02/16/2021 [facility] 9:29 AM CDT Lymphocytes 7 (L) 18 - 42 % 02/16/2021 [facility] 9:29 AM CDT Monocytes 2 2 - 11 % 02/16/2021 [facility] 9:29 AM CDT Metamyelocytes 1 (H) <1 % 02/16/2021 [facility] 9:29 AM CDT Myelocytes 9 (H) <0.5 % 02/16/2021 [facility] 9:29 AM CDT Nucleated RBC 6 /100 WBC 02/16/2021 [facility] 9:29 AM CDT Manual Absolute 2.84 1.56 - 02/16/2021 [facility] Neutrophil Count 6.45 9:29 AM CDT x10(9)/L Comment: ----ADDITIONAL INFORMATION---- The manual absolute neutrophil count is derived from a manual differential count and therefore is not exactly comparable to the automated absolute halie trophil count. Interpretation Marked dacrocytes are present. 12/2020 9:29 AM CDT PM Reviewed by: Liz 02/16/2021 9:29 AM CDT [facility] Specimen Anatomical Collection Method Collection Time Receive d Time (Source) Location / / Volume Laterality Blood (Blood, 02/16/2021 7:14 AM 02/17/20 7:49 Venous) CDT AM CDT Janusz Ardon LAB BLOOD ADD-ON Performing Organization Address City/State/[facility] Code Phon e Number [facility] - [address] [place], [place] [address] [place] [address] [facility] 200 [facility] (ABNORMAL) Comprehensive Metabolic Panel (02/16/2021 7:14 AM [...] 02/16/2021 DTL Black/ mL/min/BSA 8:20 AM CDT Indian Comment: ----ADDITIONAL INFORMATION---- Estimated GFR calculated using [...] [facility] [address] [place], [place] [address] [facility] [place] [address] [facility] [address] (ABNORMAL) CBC with Differential, Blood (02/16/2021 7:14 AM CDT) [facility] gist Method Time Signature Hemoglobin 6.8 [...] [facility] [address] [place], [place] [address] [facility] [place] [address] [facility] [address] documented in this encounter Visit Diagnoses Diagnosis Myelofibrosis (HCC) - Primary documented in this encounter
--- OUTSIDE RECORDS SUMMARY | 2022-05-02 12:33 | XMS_ITS | Encounter Summary ---
:1970 Author Organization [facility] Address [address] [place] [address] Care Team Providers Name Role Phone None Reported, Pcp Primary Care Provider Unavailable Reason for Referral Outpatient (Routine) - Closed Specialty Diagnoses / Procedures Referred By Contact Refer red To Contact Hematology [facility] navjot ArringtonB.S. [address] [place] [phone] Referral ID Status Reason Start Date Expiration Date Visits Requ ested Visits Authorized [id number] Closed 05/31/2021 05/31/2022 1 1 TCHING MACHINE TENDER FRAME Outpatient (Routine) - Pending Review Specialty Diagnoses / Procedures Referred By Contact Refer red To Contact Hematology Diagnoses Myelofibrosis Primary (HCC) Janusz Govea M.B.B.S. [address] [phone] Referral ID Status Reason Start Date Expiration Date Visits V isits Requested Authorized [id number] Pending 05/31/2021 05/31/2022 1 1 Review TCHING MACHINE TENDER FRAME Outpatient (Routine) - Closed Specialty Diagnoses / Procedures Referred By Contact Refer red To Contact General Surgery Diagnoses Myelofibrosis Primary (HCC) Janusz Govea [facility] MurphyB.S. [address] [place] [phone] Referral ID Status Reason Start Date Expiration Date Visits Requ ested Visits Authorized [id number] Closed 05/31/2021 05/31/2022 1 1 TCHING MACHINE TENDER FRAME Encounter Details Date Type Department Care Team Description 05/31/2021 Orders Only Division of Hematology Janusz Govea M yelofibrosis Primary in [facility] 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 documented as of this encounter Plan of Treatment Scheduled Referrals Name Type Priority Associated Diagnoses Order S [facility] Surgery - Outpatient Routine Myelofibrosis Primary E xpected: Spleen consult Referral ([facility]) 05/31/2021 (clinic) (Approximate), Expires: 2023 Hematology - BMT Outpatient Routine Myelofibrosis Primary Ex pected: myeloid consult Referral ([facility]) 05/31/2021 (clinic) (Approximate), Expires: 2023 Hematology office Outpatient Routine 1 Occurren carol visit (clinic) Referral starting 05/14 until 4 documented as of this encounter Results (ABNORMAL) LD (Lactate Dehydrogenase) (06/06/2021 9:27 AM STRETCHING MACHINE TENDER FRAME) [facility] Method Time Signature Lactate 640 (H) 122 - 222 06/06/2021 DTL Dehydrogenase U/L 10:28 AM STRETCHING MACHINE TENDER FRAME (LD), S Specimen Anatomical Collection Method Collection Time Receive d Time (Source) Location / / Volume Laterality Blood (Blood, 06/06/2021 9:27 AM 06/06/20 Venous) STRETCHING MACHINE TENDER FRAME 10:08 AM STRETCHING MACHINE TENDER FRAME Janusz ArringtonB.SZahraa LAB BLOOD NON ADD-ON Performing Organization Address City/[facility] Phon e Number [facility] - 200 [place], [place] [address] [facility] [place] [address] Laboratories-[address] Type and Screen (with reflex Antibody ID) (06/06/2021 9:27 AM STRETCHING MACHINE TENDER FRAME) [facility] [place] Method Time Signature ABORh A Pos Not 06/06/2021 ETRM applicable 10:18 AM STRETCHING MACHINE TENDER FRAME Antibody Negative Negative 06/06/2021 ETRM Screen 10:29 AM STRETCHING MACHINE TENDER FRAME Type & Screen 06/09/2021 06/06/2021 ETRM Expiration 23:59 10:18 AM STRETCHING MACHINE TENDER FRAME Testing [place] DEFAULT 06/06/2021 ETRM Location 9:50 AM STRETCHING MACHINE TENDER FRAME Specimen Anatomical Collection Method Collection Time Receive d Time (Source) Location / / Volume Laterality Blood (Blood, 06/06/2021 9:27 AM 06/06/20 9:50 Venous) STRETCHING MACHINE TENDER FRAME AM STRETCHING MACHINE TENDER FRAME Janusz ArringtonB.SZahraa LAB BLOOD BANK TEST ORDERABL ES Performing Organization Address [facility] Phon e Number [facility] - [address] [place] [address] [facility]) [place] [address] [facility]-[address] (ABNORMAL) Morphology Evaluation (Special Smear) (06/06/2021 9:27 AM STRETCHING MACHINE TENDER FRAME) [facility] Method Time Signature Neutrophilic Segs 80 (H) 50 - 75 % 06/06/2021 DH[facility] and Bands 11:07 AM STRETCHING MACHINE TENDER FRAME Lymphocytes 6 (L) 18 - 42 % 06/06/2021 DHPM 11:07 AM STRETCHING MACHINE TENDER FRAME Monocytes 4 2 - 11 % 06/06/2021 DHPM 11:07 AM STRETCHING MACHINE TENDER FRAME Metamyelocytes 3 (H) <1 % 06/06/2021 DH[facility] 11:07 AM STRETCHING MACHINE TENDER FRAME Myelocytes 6 (H) <0.5 % 06/06/2021 [facility] 11:07 AM STRETCHING MACHINE TENDER FRAME Blasts 1 (H) <1 % 06/06/2021 [facility] 11:07 AM STRETCHING MACHINE TENDER FRAME Nucleated RBC 3 /100 WBC 06/06/2021 [facility] 11:07 AM STRETCHING MACHINE TENDER FRAME Manual Absolute 2.64 1.56 - 06/06/2021 [facility] Neutrophil Count 6.45 11:07 AM STRETCHING MACHINE TENDER FRAME x10(9)/L Comment: ----ADDITIONAL INFORMATION---- The manual absolute neutrophil count is derived from a manual differential count and therefore is not exactly comparable to the automated absolute halie trophil count. Reviewed by: Tech 06/06/2021 11:07 AM STRETCHING MACHINE TENDER FRAME DHP M Specimen Anatomical Collection Method Collection Time Receive d Time (Source) Location / / Volume Laterality Blood (Blood, 06/06/2021 9:27 AM 06/06/20 Venous) STRETCHING MACHINE TENDER FRAME 10:02 AM STRETCHING MACHINE TENDER FRAME Janusz Ardon LAB BLOOD ADD-ON Performing Organization Address City/State/ZIP Code Phon e Number [facility] - [address] [place], [place] [address] [place] [address] Laboratories-[facility] [address] [facility] (ABNORMAL) Comprehensive Metabolic Panel (06/06/2021 9:27 AM STRETCHING MACHINE TENDER FRAME) Analysis Performed At Patho logist Time Signature Potassium, S 5.4 (H) 3.6 - 5.2 06/06/2021 DTL mmol/L 10:26 AM STRETCHING MACHINE TENDER FRAME Sodium, S 140 135 - 145 06/06/2021 DTL mmol/L 10:26 AM STRETCHING MACHINE TENDER FRAME Chloride, S 105 98 - 107 06/06/2021 DTL mmol/L 10:26 AM STRETCHING MACHINE TENDER FRAME Bicarbonate, S 29 22 - 29 06/06/2021 DTL mmol/L 10:26 AM STRETCHING MACHINE TENDER FRAME Anion Gap 6 (L) 7 - 15 06/06/2021 DTL 10:26 AM STRETCHING MACHINE TENDER FRAME BUN (Blood Urea 33 (H) 6 - 21 06/06/2021 DTL Nitrogen), S mg/dL 10:26 AM STRETCHING MACHINE TENDER FRAME Creatinine 1.15 (H) 0.59 - 06/06/2021 DTL 1.04 mg/dL 10:26 AM STRETCHING MACHINE TENDER FRAME eGFR-Non 54 (L) >=60 06/06/2021 DTL Black/ mL/min/BSA 10:26 AM STRETCHING MACHINE TENDER FRAME Greenlandic Comment: ----ADDITIONAL INFORMATION---- Estimated GFR calculated using the 2009 CKD_EPI creatinine equation. eGFR-Black/ 63 >=60 mL/min/BSA 2020 10:26 AM STRETCHING MACHINE TENDER FRAME DTL Comment: ----ADDITIONAL INFORMATION---- Estimated GFR calculated using the 2009 CKD_EPI creatinine equation. Calcium, Total, S 8.6 8.6 - 10.0 mg/dL 06/06/2021 10:2 6 AM STRETCHING MACHINE TENDER FRAME DTL Glucose, S 113 70 - 140 mg/dL 06/06/2021 10:26 AM STRETCHING MACHINE TENDER FRAME DTL Protein, Total, S 5.7 (L) 6.3 - 7.9 g/dL 06/06/2021 10:26 AM STRETCHING MACHINE TENDER FRAME DTL Albumin, S 4.1 3.5 - 5.0 g/dL 06/06/2021 10:26 AM STRETCHING MACHINE TENDER FRAME DTL Aspartate Aminotransferase 23 8 - 43 U/L 06/06/2021 1 0:26 AM STRETCHING MACHINE TENDER FRAME DTL (AST), S Alkaline Phosphatase, S 50 35 - 104 U/L 06/06/2021 10 :26 AM STRETCHING MACHINE TENDER FRAME DTL Alanine Aminotransferase 13 7 - 45 U/L 06/06/2021 10: 26 AM STRETCHING MACHINE TENDER FRAME DTL (ALT), S Bilirubin, Total, S 0.9 <=1.2 mg/dL 06/06/2021 10:26 A M STRETCHING MACHINE TENDER FRAME DTL Specimen Anatomical Collection Method Collection Time Receive d Time (Source) Location / / Volume Laterality Blood (Blood, 06/06/2021 9:27 AM 06/06/20 21 Venous) STRETCHING MACHINE TENDER FRAME 10:07 AM STRETCHING MACHINE TENDER FRAME Janusz Ardon LAB BLOOD ADD-ON Performing Organization Address City/State/ZIP Code Phon e Number [facility] - [address] [place], [place] [address] [facility] [place] [address] Laboratories-[facility] [address] (ABNORMAL) CBC with Differential, Blood (06/06/2021 9:27 AM STRETCHING MACHINE TENDER FRAME) [facility] gist Method Time Signature Hemoglobin 5.3 (CL) 11.6 - 06/06/2021 DTL 15.0 g/dL 11:07 AM STRETCHING MACHINE TENDER FRAME Hematocrit 18.5 (L) 35.5 - 06/06/2021 DTL 44.9 % 11:07 AM STRETCHING MACHINE TENDER FRAME Erythrocytes 2.12 (L) 3.92 - 06/06/2021 DTL 5.13 11:07 AM STRETCHING MACHINE TENDER FRAME x10(12)/L MCV 87.3 78.2 - 06/06/2021 DTL 97.9 fL 11:07 AM STRETCHING MACHINE TENDER FRAME RBC Distrib Width 26.9 (H) 12.2 - 06/06/2021 DTL 16.1 % 11:07 AM STRETCHING MACHINE TENDER FRAME Platelet Count 99 (L) 157 - 371 06/06/2021 DTL x10(9)/L 11:07 AM STRETCHING MACHINE TENDER FRAME Comment: Results confirmed by smear, no clumping or interference seen. Leukocytes 3.3 (L) 3.4 - 9.6 x10(9)/L 06/06/2021 11:07 AM STRETCHING MACHINE TENDER FRAME DTL Comment: Results confirmed by smear. Neutrophils SeeComment 1.56 - 6.45 x10(9)/L 06/06/2021 11:07 AM STRETCHING MACHINE TENDER FRAME DTL Comment: Auto-diff results not valid. Se e manual differential. Specimen Anatomical Collection Method Collection Time Receive d Time (Source) Location / / Volume Laterality Blood (Blood, 06/06/2021 9:27 AM 06/06/20 21 Venous) STRETCHING MACHINE TENDER FRAME 10:02 AM STRETCHING MACHINE TENDER FRAME Janusz Ardon LAB BLOOD ADD-ON Performing Organization Address City/State/ZIP Code Phon e Number [facility] - [address] [place], [place] [address] [facility] [place] [address] Laboratories-[facility] [address] documented in this encounter Visit Diagnoses Diagnosis Myelofibrosis Primary (HCC) - Primary documented in this encounter Additional Health Concerns Infection Onset Date Last Indicated Resolved Time COVID19 Pending 06/06/2021 06/06/2021 06/06/2021 10:01 PM STRETCHING MACHINE TENDER FRAME documented as of this encounter Care Teams Furnace Installer Helper Relationship Specialty Start Date End Date None Reported, Pcp PCP - General Family Medicine 02/16/21 documented as of this encounter
--- OUTSIDE RECORDS SUMMARY | 2022-05-02 12:33 | XMS_ITS | Encounter Summary ---
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 - 06/06/2021 11:44 AM MANAGER STUDY Received a call from Results inquiry. Hemoglobin 5.3 Results given to Bre Negrno RN. GER STUDY documented in 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 Care Teams Bin Filler Relationship Specialty Start Date End Date None Reported, Pcp PCP - General Family Medicine 02/16/21 documented as of this encounter
--- OUTSIDE RECORDS SUMMARY | 2022-05-02 12:33 | XMS_ITS | Encounter Summary ---
:1970 Author Organization [facility] Address [address] [place] [address] Care Team Providers Name Role Phone None Reported, Pcp Primary Care Provider Unavailable Encounter Details Date Type Department Care Team Description 02/16/2021 Hospital Encounter Department of Gangat, Myelofib rosis (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 Medications at [...] reflex Antibody ID) (02/16/2021 7:14 AM CDT) [facility] Method Time Signature ABORh A [...] BANK TEST ORDERABL ES Performing Organization Address City/[facility] Phon e Number [facility] - [address] [place] [address] [facility] [place], [place] [phone] [place] [address] Uric Acid (02/16/2021 7:14 AM CDT) P athologist Signature Uric Acid, S 4.6 2.7 - 6.1 02/16/2021 DTL mg/dL 8:20 AM CDT Specimen Anatomical Collection Method Collection Time Receive d Time (Source) Location / / Volume Laterality Blood (Blood, 02/16/2021 7:14 AM 02/17/20 7:43 Venous) CDT AM CDT Janusz HayesB.B.S. LAB BLOOD ADD-ON Performing Organization Address City/[facility] Code Phon e Number [facility] - 200 [place], [place] [address] [facility] [place] [address] (ABNORMAL) LD (Lactate Dehydrogenase) (02/16/2021 7:14 [...] LAB BLOOD NON ADD-ON Performing Organization Address City/[facility] Phon e Number [facility] - [address] DTL [address] (ABNORMAL) Morphology Evaluation (Special Smear) (02/16/2021 7:14 AM CDT) Patholo gist Method Time Signature Neutrophilic Segs 81 (H) 50 - 75 % 02/16/2021 [facility] Bands 9:29 AM CDT Lymphocytes 7 (L) 18 - 42 % 02/16/2021 DHPM 9:29 AM CDT Monocytes 2 2 - 11 % 02/16/2021 DH 9:29 AM CDT Metamyelocytes 1 (H) <1 % 02/16/2021 [facility] 9:29 AM CDT Myelocytes 9 (H) <0.5 % 02/16/2021 DH[facility] 9:29 AM CDT Nucleated RBC 6 /100 WBC 02/16/2021 PM 9:29 AM CDT Manual Absolute 2.84 1.56 - 02/16/2021 [facility] Neutrophil Count 6.45 9:29 AM CDT x10(9)/L Comment: ----ADDITIONAL INFORMATION---- The manual absolute neutrophil count is derived from a manual differential count and therefore is not exactly comparable to the automated absolute halie trophil count. Interpretation Marked dacrocytes are present. 12/2020 9:29 AM CDT [facility] Reviewed by: Liz 02/16/2021 9:29 AM CDT [facility] Specimen Anatomical Collection Method Collection Time Receive d Time (Source) Location / / Volume Laterality Blood (Blood, 02/16/2021 7:14 AM 02/17/20 21 7:49 Venous) CDT AM CDT Janusz AlexandraSZahraa LAB BLOOD ADD-ON Performing Organization Address City/[facility] Code Phon e Number [facility] - 200 [place] [phone] [facility] [place] [address] (ABNORMAL) Comprehensive Metabolic Panel (02/16/2021 7:14 [...] 02/16/2021 DTL Black/ mL/min/BSA 8:20 AM CDT [place]ry[place] Comment: ----ADDITIONAL INFORMATION---- Estimated GFR calculated using [...] [facility] - [address] [place] [address] [facility] [place] [address] Laboratories-[facility] 200 [facility] (ABNORMAL) CBC with Differential, Blood (02/16/2021 7:14 AM CDT) [facility] gist Method Time Signature Hemoglobin 6.8 [...] [facility] - [address] [place], [place] [address] [facility] [place] [address] Laboratories-[facility] [address] documented in this encounter Visit Diagnoses Diagnosis Myelofibrosis (HCC) documented in this encounter Care Teams Labor Economics Professor Relationship Specialty Start Date End Date None Reported, Pcp PCP - General Family Medicine 02/16/21 documented as of this encounter
--- OUTSIDE RECORDS SUMMARY | 2022-05-02 12:33 | XMS_ITS | Encounter Summary ---
:1970 Author Organization [facility] Address [address] [place] [address] Care Team Providers Name Role Phone None Reported, Pcp Primary Care Provider Unavailable Reason for Visit Outpatient (Routine) - Closed Specialty Diagnoses / Procedures Referred By Contact Refer red To Contact Hematology Oncology [facility] navjot M.B.B.S. [address] [place] [phone] Referral ID Status Reason Start Date Expiration Date Visits Requ ested Visits Authorized [id number] Closed 05/31/2021 05/31/2022 1 1 Encounter Details Date Type Department Care Team Description 06/06/2021 Office Visit Division of Hematology [facility], Myelo fibrosis Primary in [facility], (HCC) (Primary Dx) [place] M.B.B.S. 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 I am working with Dr. nKox who has had a chance to visit [...] her back in a month's time. ?? GER OF EMPLOYEE RELATIONS documented in this encounter Plan of Treatment Not on filedocumented as of this encounter Visit Diagnoses Diagnosis Myelofibrosis Primary (HCC) - Primary documented in this encounter Care Teams Manager Of Employee Relations Relationship Specialty Start Date End Date None Reported, Pcp PCP - General Family Medicine 02/16/21 documented as of this encounter
--- OUTSIDE RECORDS SUMMARY | 2022-05-02 12:33 | XMS_ITS | Encounter Summary ---
:1970 Author Organization [facility] Address [address] [place] [address] Care Team Providers Name Role Phone None Reported, Pcp Primary Care Provider Unavailable Reason for Visit Reason Comments Pre-visit Testing Orders Encounter Details Date Type Department Care Team Description 06/06/2021 Clinical Communication [facility]ST DARREN Govea, Pre-visit Testing [address] [place] [address] M.B.B.S. 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 documented as of this encounter Plan of Treatment Not on filedocumented as of this encounter Results (ABNORMAL) CBC with Differential, Blood (07/02/2021 11:01 AM RAILROAD CONSTRUCTION DIRECTOR) [facility] Method Time Signature Hemoglobin 7.4 (L) 11.6 - 07/02/2021 DTL 15.0 g/dL 11:45 AM RAILROAD CONSTRUCTION DIRECTOR Hematocrit 24.1 (L) 35.5 - 07/02/2021 DTL 44.9 % 11:45 AM RAILROAD CONSTRUCTION DIRECTOR Erythrocytes 2.70 (L) 3.92 - 07/02/2021 DTL 5.13 11:45 AM RAILROAD CONSTRUCTION DIRECTOR x10(12)/L MCV 89.3 78.2 - 07/02/2021 DTL 97.9 fL 11:45 AM RAILROAD CONSTRUCTION DIRECTOR RBC Distrib Width 25.5 (H) 12.2 - 07/02/2021 DTL 16.1 % 1:16 PM RAILROAD CONSTRUCTION DIRECTOR Platelet Count 88 (L) 157 - 371 07/02/2021 DTL x10(9)/L 11:45 AM RAILROAD CONSTRUCTION DIRECTOR Leukocytes 3.1 (L) 3.4 - 9.6 07/02/2021 DTL x10(9)/L 1:20 PM RAILROAD CONSTRUCTION DIRECTOR Comment: Results confirmed by smear. Neutrophils SeeComment 1.56 - 6.45 x10(9)/L 07/02/2021 1:20 PM RAILROAD CONSTRUCTION DIRECTOR DTL Comment: Auto-diff results not valid. Se e manual differential. Specimen Anatomical Collection Method Collection Time Receive d Time (Source) Location / / Volume Laterality Blood (Blood, 07/02/2021 11:01 07/02/2021 Venous) AM RAILROAD CONSTRUCTION DIRECTOR 11:23 AM RAILROAD CONSTRUCTION DIRECTOR Margy Frazier P.A.-C. LAB BLOOD ADD-ON Performing Organization Address City/State/ZIP Code Phon e Number [facility] - [address] [place], [place] [address] [facility] [place] [place] [address] Laboratories-[facility] [address] [facility] (ABNORMAL) Comprehensive Metabolic Panel (07/02/2021 11:01 AM RAILROAD CONSTRUCTION DIRECTOR) Analysis Performed At Patho logist Time Signature Potassium, S 4.6 3.6 - 5.2 07/02/2021 DTL mmol/L 12:06 PM RAILROAD CONSTRUCTION DIRECTOR Sodium, S 142 135 - 145 07/02/2021 DTL mmol/L 12:06 PM RAILROAD CONSTRUCTION DIRECTOR Chloride, S 104 98 - 107 07/02/2021 DTL mmol/L 12:06 PM RAILROAD CONSTRUCTION DIRECTOR Bicarbonate, S 30 (H) 22 - 29 07/02/2021 DTL mmol/L 12:06 PM RAILROAD CONSTRUCTION DIRECTOR Anion Gap 8 7 - 15 07/02/2021 DTL 12:06 PM RAILROAD CONSTRUCTION DIRECTOR BUN (Blood Urea 35 (H) 6 - 21 07/02/2021 DTL Nitrogen), S mg/dL 12:06 PM RAILROAD CONSTRUCTION DIRECTOR Creatinine 1.26 (H) 0.59 - 07/02/2021 DTL 1.04 mg/dL 12:06 PM RAILROAD CONSTRUCTION DIRECTOR eGFR-Non 49 (L) >=60 07/02/2021 DTL Black/ mL/min/BSA 12:06 PM RAILROAD CONSTRUCTION DIRECTOR Indonesian Comment: ----ADDITIONAL INFORMATION---- Estimated GFR calculated using the 2009 CKD_EPI creatinine equation. eGFR-Black/ 56 (L) >=60 mL/min/BSA 2020 12:06 PM RAILROAD CONSTRUCTION DIRECTOR DTL Comment: ----ADDITIONAL INFORMATION---- Estimated GFR calculated using the 2009 CKD_EPI creatinine equation. Calcium, Total, S 9.0 8.6 - 10.0 mg/dL 07/02/2021 12:0 6 PM RAILROAD CONSTRUCTION DIRECTOR DTL Glucose, S 122 70 - 140 mg/dL 07/02/2021 12:06 PM RAILROAD CONSTRUCTION DIRECTOR DTL Protein, Total, S 6.6 6.3 - 7.9 g/dL 07/02/2021 12:06 PM RAILROAD CONSTRUCTION DIRECTOR DTL Albumin, S 4.5 3.5 - 5.0 g/dL 07/02/2021 12:06 PM RAILROAD CONSTRUCTION DIRECTOR DTL Aspartate Aminotransferase 25 8 - 43 U/L 07/02/2021 1 2:06 PM RAILROAD CONSTRUCTION DIRECTOR DTL (AST), S Alkaline Phosphatase, S 44 35 - 104 U/L 07/02/2021 12 :06 PM RAILROAD CONSTRUCTION DIRECTOR DTL Alanine Aminotransferase (ALT), 10 7 - 45 U/L 021 12:06 PM RAILROAD CONSTRUCTION DIRECTOR DTL S Bilirubin, Total, S 0.8 <=1.2 mg/dL 07/02/2021 12:06 P M RAILROAD CONSTRUCTION DIRECTOR DTL Specimen Anatomical Collection Method Collection Time Receive d Time (Source) Location / / Volume Laterality Blood (Blood, 07/02/2021 11:01 07/02/2021 Venous) AM RAILROAD CONSTRUCTION DIRECTOR 11:38 AM RAILROAD CONSTRUCTION DIRECTOR Margy Frazier P.A.-C. LAB BLOOD ADD-ON Performing Organization Address City/State/ZIP Code Phon e Number [facility] - [address] [place], [place] [address] [facility] [place] [address] Laboratories-[facility] [address] documented in this encounter Visit Diagnoses Diagnosis Splenomegaly Acquired - Primary documented in this encounter Care Teams Geospatial Extractor Analysis Relationship Specialty Start Date End Date None Reported, Pcp PCP - General Family Medicine 02/16/21 documented as of this encounter
--- OUTSIDE RECORDS SUMMARY | 2022-05-02 12:33 | XMS_ITS | Encounter Summary ---
:1970 Author Organization [facility] Address [address] [place] [address] Care Team Providers Name Role Phone None Reported, Pcp Primary Care Provider Unavailable Reason for Visit Outpatient (Routine) - Closed Specialty Diagnoses / Procedures Referred By Contact Refer red To Contact General Surgery Diagnoses [facility]elofibrosis [facility] (HCC[facility] 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 - 06/06/2021 1:31 PM CUSTOMER CONTACT SALES ASSOCIATE I saw and evaluated the patient, participating [...] risk. This plan was discussed with her case packer and sealer Dr. Govea who will help coordinate this evaluation and medical optimization prior to surgery. She will also need her splenectomy immunizations at least 2 weeks prior to operation. documented in this encounter Plan of Treatment Not on filedocumented as of this encounter Visit Diagnoses Diagnosis Splenomegaly Acquired - Primary Myelofibrosis Primary (HCC) documented in this encounter Care Teams Line Fixer Relationship Specialty Start Date End Date None Reported, Pcp PCP - General Family Medicine 02/16/21 documented as of this encounter
--- OUTSIDE RECORDS SUMMARY | 2022-05-02 12:33 | XMS_ITS | Encounter Summary ---
:1970 Author Organization [facility] Address [address] [place] [address] Care Team Providers Name Role Phone Unavailable Primary Care Provider Unavailable Reason for Visit Reason Comments Intake Assessment Encounter Details Date Type Department Care Team Description 02/14/2021 Clinical Communication Division of Abraham Govea Assessment Hematology in [place], [place] M.B.B.S. 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
--- OUTSIDE RECORDS SUMMARY | 2022-05-02 12:33 | XMS_ITS | Encounter Summary ---
:1970 Author Organization [facility] Address [address] [place] [address] Care Team Providers Name Role Phone None Reported, Pcp Primary Care Provider Unavailable Reason for Visit Outpatient (Routine) - Closed Specialty Diagnoses / Procedures Referred By Contact Refer red To Contact Hematology Oncology [facility] navjot M.B.B.S. [address] [place] [phone] Referral ID Status Reason Start Date Expiration Date Visits Requ ested Visits Authorized [id number] Closed 02/12/2021 02/12/2022 1 1 Encounter Details Date Type Department Care Team Description 02/16/2021 Office Visit Division of Hematology [facility], Myelo fibrosis Primary in [facility], (HCC) (Primary Dx) [place] M.B.B.S. 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 Murphy ForemanB.S. CT CT Job ID: [id number] documented in this encounter Plan of Treatment Not on filedocumented as of this encounter Visit Diagnoses Diagnosis Myelofibrosis Primary (HCC) - Primary documented in this encounter Care Teams Security System Technician Relationship Specialty Start Date End Date None Reported, Pcp PCP - General Family Medicine 02/16/21 documented as of this encounter
--- OUTSIDE RECORDS SUMMARY | 2022-05-02 12:33 | XMS_ITS | Encounter Summary ---
:1970 Author Organization [facility] Address [address] [place] [address] Care Team Providers Name Role Phone None Reported, Pcp Primary Care Provider Unavailable Encounter Details Date Type Department Care Team Description 02/16/2021 Orders Only Division of Hematology in [place], [place] M.B.B.S. 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
--- OUTSIDE RECORDS SUMMARY | 2022-05-02 12:33 | XMS_ITS | Encounter Summary ---
:[address] [facility] Address [address] [place] [address] Care Team Providers Name Role Phone None Reported, Pcp Primary Care Provider Unavailable Reason for Visit Reason Comments swelling, feels unwell Encounter Details Date Type Department Care Team Description 05/31/2021 Clinical Communication Division of kate Govea ing, esau Hematology in [facility] [address] [facility] [place] [address] [place] [phone] Social History Tobacco Use Types Packs/Day Years [...] at Date Recorded Female 07/24/2021 11:03 AM 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 - 05/31/2021 9:32 AM PEWTER FABRICATOR MF She is followed locally by Dr. Cr. You last had a visit with her on 02/16/21. Should I advise them to go to ER? There are notes in [facility] regarding her transfusions, looks like last RBC was on 05/24/21 locally. Cintia Carr ER FABRICATOR Telephone Encounter - Johanny Villatoro - 05/31/2021 9:19 AM CST Gian calls on behalf of his Jennifer, she is in a great deal of pain. She has lots of swelling infeet and legs and it is moving its way up into her face. She is sleeping 16 hours per day. Her skin feels tight. She has not taken OTC to help with swelling, she elevates, ices, and Gian massages them. She has had many platelet transfusions lately. Please call [phone] Thank you Johanny YOON [facility] ER FABRICATOR documented in 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 Additional Health Concerns Infection Onset Date Last Indicated Resolved Time COVID19 Pending 06/06/2021 06/06/2021 06/06/2021 10:01 PM PEWTER FABRICATOR documented as of this encounter Care Teams Community Outreach Manager Relationship Specialty Start Date End Date None Reported, Pcp PCP - General Family Medicine 02/16/21 documented as of this encounter
--- OUTSIDE RECORDS SUMMARY | 2022-05-02 12:33 | XMS_ITS | Encounter Summary ---
:1970 Author Organization [facility] Address [address] [place] [address] Care Team Providers Name Role Phone None Reported, Pcp Primary Care Provider Unavailable Reason for Visit Reason Comments Abdominal Pain Encounter Details Date Type Department Care Team Description 02/16/2021 Emergency [employer] [facility], Abdomi nal Pain (Primary Dx); Emergency Department Edin Hubbard M.D., Splenomegaly Acquired; [address] [place] [address] Ph.D. 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 You are [...] had a schedule opposition appointment with her solar process engineer at [facility], who examinedher and felt she needed to [...] admission. She was instructed to call her solar process engineer to arrange for outpatient management as quickly [...] radiology report(s). Case reviewed with other health manager wound care, including Admitting Provider. Final Diagnoses: as [...] Rapid, V Symptomatic (02/16/2021 10:53 AM CDT) [facility] Method Time Signature SARS CoV-2, Undetected Undetected 02/16/2021 [facility] PCR, Rapid, V 11:25 AM CDT Comment: ----ADDITIONAL INFORMATION---- This RT-PCR test was performed using the Mirtha SARS-CoV-2 and Influenza A/B Reagent assay from [employer], which has received Emergency Use Authori zation(EUA) by the U.S. Food and Drug Administration . Fact sheets for this Emergency Use Autho rization (EUA) assay can be found at the following link s: For Healthcare Providers: https://www.fda.gov/media/549627/downloa d For Patients: https://www.fda.gov/media/000609/downloa d SARS Coronavirus 2, Source, Swab, Nasopharynx 12/2020 11:00 AM CDT [facility] Rapid Specimen Anatomical Collection Method Collection Time Receive d Time (Source) Location / / Volume Laterality Varies 02/16/2021 10:53 02/16/2021 (Nasopharynx) AM CDT 11:00 AM CDT Cristian Linda M.D. LAB MICROBIOLOGY - GENERAL O RDERABLES Performing Organization Address City/State/ZIP Code Phon e Number [facility] - [address] [place] [address] 05 [place] [address] Laboratories-[facility] 200 [facility] CT Abdomen Pelvis with IV Contrast (02/16/2021 [...] Time Signature Lactate, POCT Collected DEFAULT 02/16/2021 [facility] 9:38 AM CDT Specimen Anatomical Collection Method Collection Time Receive d Time (Source) Location / / Volume Laterality Blood (Blood, 02/16/2021 9:38 AM 02/17/20 9:38 Venous) CDT AM CDT Cristian Linda M.D. LAB POCT ORDERABLES - DEVICE Performing Organization Address City/State/ZIP Code Phon e Number [facility] - [address] [place], [place] [address] [facility] [address] Laboratories-[facility] [address] Venous Blood [...] POCT ORDERABLES - DEVICE Performing Organization Address City/[facility] [address]/ZIP Code Phon e Number [facility] - 200 [place], [place] [address] [facility] [place] [address] [facility] 200 [facility] Lactate, POCT (02/16/2021 9:37 AM CDT) P athologist Signature Lactate, POCT 0.52 0.50 - 02/16/2021 [facility] 2.20 9:49 AM CDT mmol/L Sample Site, Venline 02/16/2021 [facility] POCT 9:49 AM CDT Specimen Anatomical Collection Method Collection Time Receive d Time (Source) Location / / Volume Laterality Blood 02/16/2021 9:37 AM 9:49 CDT AM CDT Unknown Provider LAB POCT ORDERABLES - DEVICE Performing Organization Address [facility] Phon e Number POC [facility] 200 [place] [address] PCLX [facility] [place] [address] [facility] 200 [facility] (ABNORMAL) Dipstick, POCT, Urine (02/16/2021 9:37 AM CDT) Patholo gist Method Time Signature Glucose, Negative Negative 02/16/2021 [facility] POCT, U mg/dL 9:39 AM CDT Ketone, POCT, Negative Negative 02/16/2021 [facility] U mg/dL 9:39 AM CDT Specific 1.020 1.005 - 02/16/2021 [facility] [place], 1.030 9:39 AM CDT POCT, U Blood, [...] POCT ORDERABLES - DEVICE Performing Organization Address City/[facility] [address]/ZIP Code Phon e Number POC RST [facility] 200 [place] [address] [place] [address] [facility] 200 [facility] pH, Urine (02/16/2021 9:34 AM CDT) athologist Signature pH, U 4.8 4.5 - 8.0 02/16/2021 11:31 DTL AM CDT Specimen Anatomical Collection Method Collection Time Receive d Time (Source) Location / / Volume Laterality Urine 02/16/2021 9:34 AM CDT 10:30 AM CDT Cristian Linda M.D. LAB URINE ORDERABLES Performing Organization Address City/[facility] [address]/ZIP Code Phon e Number [facility] 200 [place], [place] [address] [facility] [place] [address] [facility] 200 [facility] Osmolality, Urine (02/16/2021 9:34 AM CDT) P athologist Signature Osmolality, U 585 150 - 1150 02/16/2021 DTL mOsm/kg 11:31 AM CDT Specimen Anatomical Collection Method Collection Time Receive d Time (Source) Location / / Volume Laterality Urine 02/16/2021 9:34 AM 1 CDT 10:30 AM CDT Cristian Linda M.D. LAB URINE ORDERABLES Performing Organization Address City/[facility] [address]/ZIP Code Phon e Number [facility] - 200 [place], [place] [address] [place] [address] [place] [address] Laboratories-[address] Microscopic Automated (02/16/2021 9:34 AM CDT) [...] Code Phon e Number [facility] - [address] [place] [address] [facility]ly [facility]-[address] (ABNORMAL) Dipstick, Urine (02/16/2021 9:34 AM [...] M.D. LAB URINE ORDERABLES Performing Organization Address City/[facility] [address] [facility] Phon e Number [facility] - [address] [place] [address] Bacterial Culture, Aerobic + Susc, Urine (02/16/2021 9:34 AM CDT) [employer] Method Time Signature Urine Culture No growth 02/17/2021 DTL after 1 day 8:08 AM CDT of incubation. Specimen Anatomical Collection Method Collection Time Receive d Time (Source) Location / / Volume Laterality Urine (Urine, 02/16/2021 9:34 AM 02/17/20 Midstream) CDT 10:42 AM CDT Comment: Specimen Source Site: Urine Cristian Linda M.D. LAB MICROBIOLOGY - GENERAL O RDERABLES Performing Organization Address City/[facility] [address]/[facility] Code Phon e Number [facility] - [address] [place] [address] [place] [phone] [address] Urinalysis with Microscopic: Urine, Midstream (02/16/2021 9:34 AM CDT) [employer] Method Time Signature Source Urine, Urine, 02/16/2021 [...] M.D. LAB URINE ORDERABLES Performing Organization Address City/[facility] Phon e Number [facility] [address] [place] [id number] Laboratories-[place] [address] (ABNORMAL) Venous Blood Gas and Electrolytes CG8+, POCT (02/16/2021 9:33 AM CDT) athologist Signature Sample Site, [facility] 02/16/2021 PCSM POCT 9:49 AM CDT [...] POCT ORDERABLES - DEVICE Performing Organization Address City/[facility] [address] [facility] Phon e Number POC RST [facility] [address] [place], [place] [address] [place] [address] [facility] [address] Type and Screen [...] STRM Comment: REVISED RESULTS ----PREVIOUSLY REPORTED ---- [place], Flagged as: Normal (Reported 02/16/2021 09:54) Specimen Anatomical Collection Method Collection Time Receive d Time (Source) Location / / Volume Laterality Blood (Blood, 02/16/2021 9:33 AM 02/17/20 9:54 Venous) CDT AM CDT Narrative [facility] - 02/16/2021 9:56 AM CDT Type and Screen, RBC was cancelled on 02/16/2021 at 09:56; Cancelled by [email or web address] Cristian Linda M.D. LAB BLOOD BANK TEST ORDERABL ES Performing Organization Address City/[facility] [address] [facility] Phon e Number [facility] - [address] [place], [place] [address] [facility] [place] [address] [facility] 200 [address] [facility] APTT (Activated Partial Thromboplastin Time) (02/16/2021 9:33 [...] Code Phon e Number [facility] - [address] [address] Laboratories[facility] [address] [facility] (ABNORMAL) Prothrombin Time (PT) (02/16/2021 9:33 AM CDT) [facility] Method Time Signature Prothrombin 13.5 (H) 9.4 - 12.5 02/16/2021 [facility] Time, P sec 9:57 AM CDT INR 1.2 0.9 - 1.1 02/16/2021 [facility] 9:57 AM CDT Comment: ----ADDITIONAL INFORMATION---- Standard [...] Code Phon e Number [facility] - [address] [address] [facility] [address] [facility] Lipase (02/16/2021 9:33 AM CDT) P athologist Signature Lipase, S 24 13 - 60 U/L 02/16/2021 DTL 10:27 AM CDT Specimen Anatomical Collection Method Collection Time Receive d Time (Source) Location / / Volume Laterality Blood (Blood, 02/16/2021 9:33 AM 02/17/20 Venous) CDT 10:05 AM CDT Cristian Linda M.D. LAB BLOOD ADD-ON Performing Organization Address City/[facility] Phon e Number [facility] - 200 [place], [place] [address] [place] [address] Hepatic Function Panel (02/16/2021 9:33 AM [...] Performing Organization Address City/State/[facility] Phon e Number [facility] - 200 [place], [place] [address] [place] [address] [place], [place] [phone] [place] [address] hCG (Human Chorionic Gonadotropin), Quantitative, (02/16/2021 9:33 [...] Code Phon e Number [facility] - 200 [address] [place], [place] [address] [facility] [place] [address] [facility] [address] (ABNORMAL) [...] CDT eGFR-Black/Afri 81 >=60 02/16/2021 STMA can Angolan mL/min/BSA 10:02 AM CDT Comment: ----ADDITIONAL INFORMATION---- [...] - 140 mg/dL 02/16/2021 10:02 AM CDT [facility] Specimen Anatomical Collection Method Collection Time Receive d Time (Source) Location / / Volume Laterality Blood (Blood, 02/16/2021 9:33 AM 02/17/20 9:44 Venous) CDT AM CDT Cristian Linda M.D. LAB BLOOD ADD-ON Performing Organization Address City/State/ZIP Code Phon e Number [facility] - [address] [place] [address] 05 [place] [address] [facility] 200 [facility] (ABNORMAL) CBC with Differential, Blood (02/16/2021 9:33 AM CDT) [facility] gist Method Time Signature Hemoglobin 6.7 [...] M.D. LAB BLOOD ADD-ON Performing Organization Address City/[facility] Phon e Number [facility] - [address] [place], [place] [address] [facility] STMA [place], [place] [phone] [place] [address] [address] [facility] Type and Screen (with reflex Antibody ID) [...] STRM Comment: REVISED RESULTS ----PREVIOUSLY REPORTED ---- [place], Flagged as: Normal (Reported 02/16/2021 10:47) Specimen Anatomical Collection Method Collection Time Receive d Time (Source) Location / / Volume Laterality Blood (Blood, 02/16/2021 7:11 AM 02/17/20 21 Venous) CDT 10:47 AM CDT Narrative [facility] - 02/16/2021 10:49 AM CDT Type and Screen, RBC was cancelled on 02/16/2021 at 10:49; Cancelled by [place] Cristian Linda M.D. LAB BLOOD BANK TEST ORDERABL ES Performing Organization Address [facility] Phon e Number [facility] - [address] [place] [address] 05 [facility] [place], [place] [phone] [place] [address] documented in this encounter Visit Diagnoses Diagnosis [...] documented as of this encounter Care Teams Company Miner Blasting Relationship Specialty Start Date End Date None Reported, Pcp PCP - General Family Medicine 02/16/21 documented as of this encounter
--- OUTSIDE RECORDS SUMMARY | 2022-05-02 12:33 | XMS_ITS | Encounter Summary ---
:1970 Author Organization [facility] Address [address] [place] [address] Care Team Providers Name Role Phone None Reported, Pcp Primary Care Provider Unavailable Encounter Details Date Type Department Care Team Description 06/06/2021 Hospital Encounter Department of Gangat, Myelofib rosis Primary ([facility]); Laboratory Medicine [facility], Clinical Research Exam and Pathology, [place] [address] [address] [place], [place] [address] [place] [phone] [place], [place] [phone] (Work) [phone] Social History Tobacco Use Types Packs/Day Years [...] at Date Recorded 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 Evy Foreman. CT CT Job ID: [id number]/carmen TER HELP documented in this encounter Plan of Treatment Not on filedocumented as of this encounter Procedures Procedure Name Priority Date/Time Associated Diagnosis Comme nts SPSMA RESULT Routine 06/06/2021 9:27 Myelofibrosis Primary Res ults for this AM COUNTER HELP (HCC) procedure are i n the results section. CBC WITH Routine 06/06/2021 9:27 Myelofibrosis Primary Res ults for this DIFFERENTIAL, B AM COUNTER HELP (HCC) procedure ar e in the results section. TYPE AND SCREEN Routine 06/06/2021 9:27 Myelofibrosis Primary Results for this AM COUNTER HELP (HCC) procedure are i n the results section. LACTATE DEHYDROGENASE Routine 06/06/2021 9:27 Myelofibrosis Pr imary Results for this (LD), S AM COUNTER HELP (HCC) procedure are i n the results section. COMPREHENSIVE Routine 06/06/2021 9:27 Myelofibrosis Primary Re sults for this METABOLIC PANEL, S/P AM COUNTER HELP (HCC) procedu re are in the results section. [facility] ORDER, Routine 06/06/2021 9:26 Clinical Research Results for this B AM COUNTER HELP Exam procedure are i n the results section. documented in this encounter Results (ABNORMAL) LD (Lactate Dehydrogenase) (06/06/2021 9:27 AM COUNTER HELP) [facility] gist Method Time Signature Lactate 640 (H) 122 - 222 06/06/2021 DTL Dehydrogenase U/L 10:28 AM COUNTER HELP (LD), S Specimen Anatomical Collection Method Collection Time Receive d Time (Source) Location / / Volume Laterality Blood (Blood, 06/06/2021 9:27 AM 06/06/20 21 Venous) COUNTER HELP 10:08 AM COUNTER HELP Janusz Ardon LAB BLOOD NON ADD-ON Performing Organization Address City/[facility] Phon e Number [facility] - [address] [place] [address] 05 [facility] [place] [address] Laboratories-[address] Type and Screen (with reflex Antibody ID) (06/06/2021 9:27 AM COUNTER HELP) [facility] Method Time Signature ABORh A Pos Not 06/06/2021 ETRM applicable 10:18 AM COUNTER HELP Antibody Negative Negative 06/06/2021 ETRM Screen 10:29 AM COUNTER HELP Type & Screen 06/09/2021 06/06/2021 ETRM Expiration 23:59 10:18 AM COUNTER HELP Testing Deidra DEFAULT 06/06/2021 ETRM Location 9:50 AM COUNTER HELP Specimen Anatomical Collection Method Collection Time Receive d Time (Source) Location / / Volume Laterality Blood (Blood, 06/06/2021 9:27 AM 06/06/20 9:50 Venous) COUNTER HELP AM COUNTER HELP Janusz Ardon LAB BLOOD BANK TEST ORDERABL ES Performing Organization Address [facility] Phon e Number [facility] - [address] [place] [address] [facility] [place] [address] [facility]-[address] (ABNORMAL) Morphology Evaluation (Special Smear) (06/06/2021 9:27 AM COUNTER HELP) [facility] Method Time Signature Neutrophilic Segs 80 (H) 50 - 75 % 06/06/2021 DHPM and Bands 11:07 AM COUNTER HELP Lymphocytes 6 (L) 18 - 42 % 06/06/2021 DHPM 11:07 AM COUNTER HELP Monocytes 4 2 - 11 % 06/06/2021 DHPM 11:07 AM COUNTER HELP Metamyelocytes 3 (H) <1 % 06/06/2021 DHPM 11:07 AM COUNTER HELP Myelocytes 6 (H) <0.5 % 06/06/2021 DHPM 11:07 AM COUNTER HELP Blasts 1 (H) <1 % 06/06/2021 DHPM 11:07 AM COUNTER HELP Nucleated RBC 3 /100 WBC 06/06/2021 DHPM 11:07 AM COUNTER HELP Manual Absolute 2.64 1.56 - 06/06/2021 DHPM Neutrophil Count 6.45 11:07 AM COUNTER HELP x10(9)/L Comment: ----ADDITIONAL INFORMATION---- The manual absolute neutrophil count is derived from a manual differential count and therefore is not exactly comparable to the automated absolute halie trophil count. Reviewed by: Liz 06/06/2021 11:07 AM COUNTER HELP [facility] Specimen Anatomical Collection Method Collection Time Receive d Time (Source) Location / / Volume Laterality Blood (Blood, 06/06/2021 9:27 AM 06/06/20 21 Venous) COUNTER HELP 10:02 AM COUNTER HELP Janusz Ardon LAB BLOOD ADD-ON Performing Organization Address City/State/ZIP Code Phon e Number [facility] - [address] [place], [place] [address] [place] [address] Laboratories-[facility] [address] [facility] (ABNORMAL) Comprehensive Metabolic Panel (06/06/2021 9:27 AM COUNTER HELP) Analysis Performed At Patho logist Time Signature Potassium, S 5.4 (H) 3.6 - 5.2 06/06/2021 DTL mmol/L 10:26 AM COUNTER HELP Sodium, S 140 135 - 145 06/06/2021 DTL mmol/L 10:26 AM COUNTER HELP Chloride, S 105 98 - 107 06/06/2021 DTL mmol/L 10:26 AM COUNTER HELP Bicarbonate, S 29 22 - 29 06/06/2021 DTL mmol/L 10:26 AM COUNTER HELP Anion Gap 6 (L) 7 - 15 06/06/2021 DTL 10:26 AM COUNTER HELP BUN (Blood Urea 33 (H) 6 - 21 06/06/2021 DTL Nitrogen), S mg/dL 10:26 AM COUNTER HELP Creatinine 1.15 (H) 0.59 - 06/06/2021 DTL 1.04 mg/dL 10:26 AM COUNTER HELP eGFR-Non 54 (L) >=60 06/06/2021 DTL Black/ mL/min/BSA 10:26 AM COUNTER HELP Ethiopian Comment: ----ADDITIONAL INFORMATION---- Estimated GFR calculated using the 2009 CKD_EPI creatinine equation. eGFR-Black/ 63 >=60 mL/min/BSA 2020 10:26 AM COUNTER HELP DTL Comment: ----ADDITIONAL INFORMATION---- Estimated GFR calculated using the 2009 CKD_EPI creatinine equation. Calcium, Total, S 8.6 8.6 - 10.0 mg/dL 06/06/2021 10:2 6 AM COUNTER HELP DTL Glucose, S 113 70 - 140 mg/dL 06/06/2021 10:26 AM COUNTER HELP DTL Protein, Total, S 5.7 (L) 6.3 - 7.9 g/dL 06/06/2021 10:26 AM COUNTER HELP DTL Albumin, S 4.1 3.5 - 5.0 g/dL 06/06/2021 10:26 AM COUNTER HELP DTL Aspartate Aminotransferase 23 8 - 43 U/L 06/06/2021 1 0:26 AM COUNTER HELP DTL (AST), S Alkaline Phosphatase, S 50 35 - 104 U/L 06/06/2021 10 :26 AM COUNTER HELP DTL Alanine Aminotransferase 13 7 - 45 U/L 06/06/2021 10: 26 AM COUNTER HELP DTL (ALT), S Bilirubin, Total, S 0.9 <=1.2 mg/dL 06/06/2021 10:26 A M COUNTER HELP DTL Specimen Anatomical Collection Method Collection Time Receive d Time (Source) Location / / Volume Laterality Blood (Blood, 06/06/2021 9:27 AM 06/06/20 21 Venous) COUNTER HELP 10:07 AM COUNTER HELP Janusz Ardon LAB BLOOD ADD-ON Performing Organization Address City/State/ZIP Code Phon e Number [facility] - [address] [place] [address] [facility] [place] [address] Laboratories-[facility] [address] [facility] (ABNORMAL) CBC with Differential, Blood (06/06/2021 9:27 AM COUNTER HELP) [facility] gist Method Time Signature Hemoglobin 5.3 (CL) 11.6 - 06/06/2021 DTL 15.0 g/dL 11:07 AM COUNTER HELP Hematocrit 18.5 (L) 35.5 - 06/06/2021 DTL 44.9 % 11:07 AM COUNTER HELP Erythrocytes 2.12 (L) 3.92 - 06/06/2021 DTL 5.13 11:07 AM COUNTER HELP x10(12)/L MCV 87.3 78.2 - 06/06/2021 DTL 97.9 fL 11:07 AM COUNTER HELP RBC Distrib Width 26.9 (H) 12.2 - 06/06/2021 DTL 16.1 % 11:07 AM COUNTER HELP Platelet Count 99 (L) 157 - 371 06/06/2021 DTL x10(9)/L 11:07 AM COUNTER HELP Comment: Results confirmed by smear, no clumping or interference seen. Leukocytes 3.3 (L) 3.4 - 9.6 x10(9)/L 06/06/2021 11:07 AM COUNTER HELP DTL Comment: Results confirmed by smear. Neutrophils SeeComment 1.56 - 6.45 x10(9)/L 06/06/2021 11:07 AM COUNTER HELP DTL Comment: Auto-diff results not valid. Se e manual differential. Specimen Anatomical Collection Method Collection Time Receive d Time (Source) Location / / Volume Laterality Blood (Blood, 06/06/2021 9:27 AM 06/06/20 21 Venous) COUNTER HELP 10:02 AM COUNTER HELP Janusz ArringtonB.S. LAB BLOOD ADD-ON Performing Organization Address City/[facility] Phon e Number [facility] - [address] Miscellaneous Research, B (06/06/2021 9:26 AM COUNTER HELP) athologist Signature Number of 5 06/06/2021 [facility] Specimens 9:26 AM COUNTER HELP Specimen Anatomical Collection Method Collection Time Receive d Time (Source) Location / / Volume Laterality Varies (Blood, 06/06/2021 9:26 AM 021 9:26 Venous) COUNTER HELP AM COUNTER HELP Woo ArringtonBZahraaS. LAB RESEARCH NO RESULT PETEY MENESES Performing Organization Address [facility] Phon e Number [facility] - [address] documented in this encounter Visit Diagnoses Diagnosis Myelofibrosis Primary (HCC) Clinical Research Exam documented in this encounter Care Teams Sign Shop Supervisor Relationship Specialty Start Date End Date None Reported, Pcp PCP - General Family Medicine 02/16/21 documented as of this encounter
--- OUTSIDE RECORDS SUMMARY | 2022-05-02 12:33 | XMS_ITS | Encounter Summary ---
:1970 Author Organization [facility] Address [address] [place] [address] Care Team Providers Name Role Phone None Reported, Pcp Primary Care Provider Unavailable Encounter Details Date Type Department Care Team Description 06/06/2021 Anesthesia Event [facility]ST ROEI Michelle Arellano, [address] [place] [address] [address] [place] [phone] Anesthesia Record Procedure Summary Procedure Name Responsible Anesthesia Start Anesthesia Stop Anesthesiologist Time Time BEDSIDE ANESTHESIA Michelle Cuellar, REFERRAL SPECIALIST, TRAFFIC SAFETY ADMINISTRATOR 06/06/21 1545 [id number] SCHEDULING Events Date Time [...] h andoff to the receiving staff during [facility] we 1. Identified the patient 2. [...] Date Recorded Female 07/24/2021 11:03 AM RESIDENTIAL TECH documented as of this encounter OR Notes [...] Post Op nausea/vomiting: none Hydration status: euvolemic DENTIAL TECH Anesthesia Preprocedure Evaluation - Michelle Cuellar APRN, [...] with patient /legal guardian or through an diplomatic interpreter. The use of blood products not discussed Approval to Proceed: approved for anesthesia DENTIAL TECH documented in 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 Administered Medications Inactive Administered Medications - up to 3 most recent administrations Medication Order MAR Action Action Date Dose Rate Site fentaNYL injection (SUBLIMAZE) Given 06/06/2021 3:50 PM RESIDENTIAL TECH 25 mcg intravenous, As needed, Starting on Fri06/06/21 at 1547, Anesthesia Intra-op Given 06/06/2021 3:47 PM RESIDENTIAL TECH 25 mcg lidocaine (PF) (cardiac) injection Given 06/06/2021 3:50 PM RESIDENTIAL TECH 60 mg intravenous, As needed, Starting on Fri06/06/21 at 1550, Anesthesia Intra-op NaCl 0.9% infusion New Bag 06/06/2021 3:45 PM RESIDENTIAL TECH intravenous, Continuous Infusion: Per Instructions PRN, Starting on Fri06/06/21 at 1545, Anesthesia Intra-op propofoL injection (DIPRIVAN) Given 06/06/2021 3:58 PM RESIDENTIAL TECH 20 mg intravenous, As needed, Starting on Fri06/06/21 at 1550, Anesthesia Intra-op Given 06/06/2021 3:57 PM RESIDENTIAL TECH 20 mg Given 06/06/2021 3:55 PM RESIDENTIAL TECH 20 mg documented in this encounter Additional Health Concerns Infection Onset Date Last Indicated Resolved Time COVID19 Pending 06/06/2021 06/06/2021 06/06/2021 10:01 PM RESIDENTIAL TECH documented as of this encounter Care Teams Apns Relationship Specialty Start Date End Date None Reported, Pcp PCP - General Family Medicine 02/16/21 documented as of this encounter
--- OUTSIDE RECORDS SUMMARY | 2022-05-02 12:33 | XMS_ITS | Encounter Summary ---
:1970 Author Organization [facility] Address [address] [place] [address] Care Team Providers Name Role Phone None Reported, Pcp Primary Care Provider Unavailable Encounter Details Date Type Department Care Team Description 06/01/2021 Orders Only Division of Hematology Arnett, A my M Clinical Research Exam in [facility] [place] [address] [facility] (Primary Dx) [address] [place] [phone] Social History Tobacco Use Types Packs/Day Years [...] at Date Recorded Female 07/24/2021 11:03 AM REGISTRY NP documented as of this encounter Plan of Treatment Not on filedocumented as of this encounter Results Miscellaneous Research, B (06/06/2021 9:26 AM REGISTRY NP) athologist Signature Number of 5 06/06/2021 [facility] Specimens 9:26 AM REGISTRY NP Specimen Anatomical Collection Method Collection Time Receive d Time (Source) Location / / Volume Laterality Varies (Blood, 06/06/2021 9:26 AM 021 9:26 Venous) REGISTRY NP AM REGISTRY NP Woo Ardon LAB RESEARCH NO RESULT PETEY MENESES Performing Organization Address City/State/ZIP Code Phon e Number [facility] - [address] [place], [place] [address] [place] [address] Laboratories-[facility] [address] documented in this encounter Visit Diagnoses Diagnosis Clinical Research Exam - Primary documented in this encounter Care Teams Administrative Receptionist Relationship Specialty Start Date End Date None Reported, Pcp PCP - General Family Medicine 02/16/21 documented as of this encounter
--- OUTSIDE RECORDS SUMMARY | 2022-05-02 12:33 | XMS_ITS | Encounter Summary ---
:1970 Author Organization [facility] Address [address] [place] [address] Care Team Providers Name Role Phone None Reported, Pcp Primary Care Provider Unavailable Reason for Visit Reason Comments Pt's called Encounter Details Date Type Department Care Team Description 06/05/2021 Clinical Communication Division of [facility], Pt's called Hematology in [facility] [address] [facility] [address] [place] [phone] Social History Tobacco Use Types Packs/Day Years [...] at Date Recorded Female 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 - 06/06/2021 11:33 AM RETAIL STORE ASSOCIATE Addended by: BRE MADDOX on: 06/06/2021 11:33 AM Modules accepted: Orders [place] STORE ASSOCIATE Addendum Note - Bre Maddox R.N. - 06/06/2021 11:22 AM RETAIL STORE ASSOCIATE Addended by: BRE MADDOX on: 06/06/2021 11:22 AM Modules accepted: Orders [place] STORE ASSOCIATE Telephone Encounter - Bre Maddox R.N. - [...] available booster shot is 3 at the [facility]. I called the [address] [place] [address] Vaccine clinic and they are only by [...] order RBC is hgb less than 7. [place] STORE ASSOCIATE Telephone Encounter - Dena Junior R.N. - 06/05/2021 1:29 PM RETAIL STORE ASSOCIATE I am unsure how to order a Covid booster. Thank you, Dena NARAYAN [place] STORE ASSOCIATE Telephone Encounter - Dena Junior R.N. - 06/05/2021 1:21 PM RETAIL STORE ASSOCIATE Patient of Dr. Govea. DX: Myelofibroisis transfused every week to week and a half. Please order COVID vaccine if appropriate. Walk in clinic is finished. She is being seen by Dr. Govea tomorrow. Type and Cross is ordered for tomorrow if she needs a transfusion Thank you, Dena RN [place] STORE ASSOCIATE Telephone Encounter - Gabriela Cates - 06/05/2021 12:49 PM CST Pt's called and said that he wanted to have Dr. Govea set up for his to have a blood transfusion. That she needs one every time she comes for doctor visits. He also wanted to know if she could get her covid booster. Please call pt at [phone] Thank you, Shana - Hematology, MAA [place] STORE ASSOCIATE documented in this encounter Plan of Treatment Not on filedocumented as of this encounter Visit Diagnoses Diagnosis Myelofibrosis Primary (HCC) - Primary documented in this encounter Care Teams Tablet Machine Operator Relationship Specialty Start Date End Date None Reported, Pcp PCP - General Family Medicine 02/16/21 documented as of this encounter
--- OUTSIDE RECORDS SUMMARY | 2022-05-02 12:33 | XMS_ITS | Encounter Summary ---
:1970 Author Organization [facility] Address [address] [place] [address] Care Team Providers Name Role Phone Unavailable Primary Care Provider Unavailable Encounter Details Date Type Department Care Team Description 12/19/2020 Orders Only Division of Hematology in [place], [place] M.B.B.S. 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
--- OUTSIDE RECORDS SUMMARY | 2022-05-02 12:33 | XMS_ITS | Encounter Summary ---
:1970 Author Organization [facility] Address [address] [place] [address] Care Team Providers Name Role Phone None Reported, Pcp Primary Care Provider Unavailable Encounter Details Date Type Department Care Team Description 06/06/2021 Medication Division of [place] Myelofibrosis ( HCC) Management Hematology in [place], (Primary Dx) Kayleigh Gay, R.Ph. 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 Hematology/Oncology Clinical Pharmacist INSTALLER documented in 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 Care Teams Telecom Specialist Relationship Specialty Start Date End Date None Reported, Pcp PCP - General Family Medicine 02/16/21 documented as of this encounter
--- OUTSIDE RECORDS SUMMARY | 2022-05-02 12:33 | XMS_ITS | Encounter Summary ---
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
--- OUTSIDE RECORDS SUMMARY | 2022-05-02 12:33 | XMS_ITS | Encounter Summary ---
:1970 Author Organization [facility] Address [address] [place] [address] Care Team Providers Name Role Phone None Reported, Pcp Primary Care Provider Unavailable Reason for Visit Reason Comments Results Encounter Details Date Type Department Care Team Description 02/19/2021 Clinical Communication Division of Hematology Janusz Govea, Results in [facility] [place] ArringtonB.S. 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 - 02/20/2021 9:18 AM CDT Looking at the notes, she went to ED for pain management on 02/16 after her visit with you, but refused to be admitted and went home after ED evaluation/pain meds. I am not sure what test he is referringto? Do you want a phone visit? ThanksArpany Telephone Encounter - Claudia Mackay - 02/19/2021 11:40 AM CDT Name of caller: Gian Dobbs Do we have a valid auth to speak with caller? yes If so, date of authorization: 03/04/2016. Reason for call: Spouse is calling to discuss patients test results from last week Call back number is [phone] Is it okay to leave a voicemail on answering machine? yes. Thank you, Claudia Hematology [facility] MAA documented in 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 Care Teams Manager Critical Care Unit Relationship Specialty Start Date End Date None Reported, Pcp PCP - General Family Medicine 02/16/21 documented as of this encounter
--- OUTSIDE RECORDS SUMMARY | 2022-05-02 12:34 | XMS_ITS | Encounter Summary ---
:1970 Author Organization [facility] Address [address] [place] [address] Care Team Providers Name Role Phone Unavailable Primary Care Provider Unavailable Reason for Visit Reason Comments Outpatient Infusion anemia Encounter Details Date Type Department Care Team Description 09/13/2020 Infusion Department of Infusion Janusz Govea M yelofibrosis (HCC) Therapy in [facility] (Primary Dx) [address] [place] [phone] Social History Tobacco Use Types Packs/Day Years Used Date Smoking Tobacco: Former Smokeless Tobacco: Never Sex Assigned at Date Recorded Female 07/24/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 documented as of this encounter Last Filed Vital Signs Vital Sign Reading Time Taken Comments Blood Pressure 137/74 09/13/2020 4:45 PM SEPARATOR INSERTER Pulse 88 09/13/2020 4:45 PM SEPARATOR INSERTER Temperature 37 ??C (98.6 ??F) 09/13/2020 4:45 PM SEPARATOR INSERTER Respiratory Rate 16 09/13/2020 4:45 PM SEPARATOR INSERTER Oxygen Saturation - - Inhaled Oxygen Concentration - - Weight - - Height - - Body Mass Index - - documented in this encounter Plan of Treatment Pending Results Name Type Priority Associated Diagnoses Date/Ti me Prepare Red Blood Blood Bank Routine Myelofibrosis (HCC) 09/2020 8:10 AM SEPARATOR INSERTER Cells, 1 Units documented as of this encounter Procedures Procedure Name Priority Date/Time Associated Diagnosis Comme nts TRANSFUSE RED BLOOD Routine 09/13/2020 2:29 PM SEPARATOR INSERTER Myelofibros is (HCC) CELLS PREPARE RED BLOOD CELLS Routine 09/13/2020 8:10 AM SEPARATOR INSERTER Myelofi brosis (HCC) documented in this encounter Results Transfuse Red Blood Cells : (09/13/2020 5:08 PM SEPARATOR INSERTER) Naseema Gangat M.B.B.S. BLOOD TRANSFUSION ORDERABLES Transfuse Red Blood Cells : , 1 Units (09/13/2020 5:08 PM SEPARATOR INSERTER) Naseema Gangat M.B.B.S. BLOOD TRANSFUSION ORDERABLES documented in this encounter Visit Diagnoses Diagnosis Myelofibrosis (HCC) - Primary documented in this encounter Administered Medications Inactive Administered Medications - up to 3 most recent administrations Medication Order MAR Action Action Date Dose Rate Site NaCl 0.9% infusion New Bag 09/13/2020 4:28 PM 180 mL/hr 180 mL/hr 10-250 mL/hr, intravenous, As SEPARATOR INSERTER needed, Between Consecutive Piggyback Administrations, Starting on Fri09/13/20 at 1340, Infuse at the same rate as the piggyback until tubing clears or up to a volume of 20 mL. Select for IV medication administration when no maintenance IV available or when IV medications are not compatible with maintenance fluid. sodium chloride 0.9 % injection 3 mL Given 09/13/2020 4:47 PM SEPARATOR INSERTER 3 mL 3 mL, intra-catheter, As needed, line care, Starting on Fri09/13/20 at 1340, Prior to and following infusion and between multiple consecutive infusions. Given 09/13/2020 2:03 PM SEPARATOR INSERTER 3 mL documented in this encounter
--- OUTSIDE RECORDS SUMMARY | 2022-05-02 12:34 | XMS_ITS | Encounter Summary ---
:1970 Author Organization [facility] Address [address] [place] [address] Care Team Providers Name Role Phone Unavailable Primary Care Provider Unavailable Reason for Visit Reason Comments Intake Assessment Encounter Details Date Type Department Care Team Description 09/08/2020 Clinical Communication Division of Tim Govea Hematology in [place], [place] M.B.B.S. 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
--- OUTSIDE RECORDS SUMMARY | 2022-05-02 12:34 | XMS_ITS | Encounter Summary ---
:1970 Author Organization [facility] Address [address] [place] [address] Care Team Providers Name Role Phone Unavailable Primary Care Provider Unavailable Encounter Details Date Type Department Care Team Description 08/04/2020 Infusion Department of Infusion Janusz [facility] (HCC[facility] [address] [phone] Social History Tobacco Use Types Packs/Day Years Used Date Smoking Tobacco: Former Smokeless Tobacco: Never Sex Assigned at Date Recorded Female 07/24/2021 11:03 AM 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 documented as of this encounter Last Filed Vital Signs Vital Sign Reading Time Taken Comments Blood Pressure 124/65 08/04/2020 5:48 PM 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 Pulse 88 08/04/2020 5:48 PM 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 Temperature 36.6 ??C (97.9 ??F) 08/04/2020 5:48 PM 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 Respiratory Rate 18 08/04/2020 5:48 PM 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 Oxygen Saturation - - Inhaled Oxygen Concentration - - Weight - - Height - - Body Mass Index - - documented in this encounter Plan of Treatment Pending Results Name Type Priority Associated Diagnoses Date/Ti me Prepare Red Blood Blood Bank Routine Myelofibrosis (HCC) 10:17 AM 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 Cells, 1 Units documented as of this encounter Procedures Procedure Name Priority Date/Time Associated Diagnosis Comme nts TRANSFUSE RED BLOOD Routine 08/04/2020 3:25 PM 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 Myelofibros is (HCC) CELLS PREPARE RED BLOOD CELLS Routine 08/04/2020 10:17 AM 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 Myelof ibrosis (HCC) documented in this encounter Results Transfuse Red Blood Cells : (08/04/2020 5:53 PM 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) Janusz Govea M.B.B.S. BLOOD TRANSFUSION ORDERABLES Transfuse Red Blood Cells : , 1 Units (08/04/2020 5:53 PM 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) Janusz Govea M.B.B.S. BLOOD TRANSFUSION ORDERABLES documented in this encounter Visit Diagnoses Diagnosis Myelofibrosis (HCC) - Primary documented in this encounter Administered Medications Inactive Administered Medications - up to 3 most recent administrations Medication Order MAR Action Action Date Dose Rate Site NaCl 0.9% infusion New Bag 08/04/2020 5:27 PM 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 180 mL/hr 180 mL/hr 20-500 mL/hr, intravenous, As needed, Between Unit of Blood Products, Starting on Fri08/04/20 at 1527, Infuse at the same rate as the blood infusion until tubing cleared. Nurse may reduce rate to 20 mL/hour or as otherwise directed until next blood infusion arrives then discontinue when infusion complete. sodium chloride 0.9 % injection 3 mL Given 08/04/2020 3:24 PM 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 3 mL 3 mL, intra-catheter, As needed, line care, Starting on Fri08/04/20 at 1527, Prior to and following infusion and between multiple consecutive infusions. documented in this encounter
--- OUTSIDE RECORDS SUMMARY | 2022-05-02 12:34 | XMS_ITS | Encounter Summary ---
:1970 Author Organization [facility] Address [address] [place] [address] Care Team Providers Name Role Phone Unavailable Primary Care Provider Unavailable Encounter Details Date Type Department Care Team Description 08/01/2020 Hospital Encounter Department of Gangat, Myelofib rosis ([facility]) Laboratory Medicine [facility], and Pathology, [facility] in [address] [place] [phone] [place], [place] [phone] (Work) [phone] Social History Tobacco Use Types Packs/Day Years Used Date Smoking Tobacco: Former Smokeless Tobacco: Never Sex Assigned at Date Recorded Female 07/24/2021 11:03 AM MARBLE HELPER documented as of this encounter Medications at [...] Routine 08/01/2020 8:46 Results for this AM MARBLE HELPER procedure are i n the results section. CBC WITH DIFFERENTIAL, B Routine 08/01/2020 8:46 Myelofibrosis (HCC) Results for this AM MARBLE HELPER procedure are i n the results section. TYPE AND SCREEN Routine 08/01/2020 8:46 Myelofibrosis (HCC) Re sults for this AM MARBLE HELPER procedure are i n the results section. URIC ACID, S/P Routine 08/01/2020 8:46 Myelofibrosis (HCC) Res ults for this AM MARBLE HELPER procedure are i n the results section. BUN (BLOOD UREA Routine 08/01/2020 8:46 Myelofibrosis (HCC) Re sults for this NITROGEN), S/P AM MARBLE HELPER procedure are in the results section. ALANINE AMINOTRANSFERASE Routine 08/01/2020 8:46 Myelofibrosis (HCC) Results for this (ALT), S/P AM MARBLE HELPER procedure are i n the results section. ASPARTATE Routine 08/01/2020 8:46 Myelofibrosis (HCC) Resul ts for this AMINOTRANSFERASE (AST), AM MARBLE HELPER proc edure are in S/P the results section. SODIUM, S/P Routine 08/01/2020 8:46 Myelofibrosis (HCC) Resul ts for this AM MARBLE HELPER procedure are i n the results section. PROTEIN, TOTAL, S/P Routine 08/01/2020 8:46 Myelofibrosis (HCC ) Results for this AM MARBLE HELPER procedure are i n the results section. POTASSIUM, S/P Routine 08/01/2020 8:46 Myelofibrosis (HCC) Res ults for this AM MARBLE HELPER procedure are i n the results section. ALKALINE PHOSPHATASE, Routine 08/01/2020 8:46 Myelofibrosis (H CC) Results for this S/P AM MARBLE HELPER procedure are i n the results section. MAGNESIUM, S Routine 08/01/2020 8:46 Myelofibrosis (HCC) Resul ts for this AM MARBLE HELPER procedure are i n the results section. GLUCOSE, RANDOM, S/P Routine 08/01/2020 8:46 Myelofibrosis (HC C) Results for this AM MARBLE HELPER procedure are i n the results section. CREATININE WITH EGFR, Routine 08/01/2020 8:46 Myelofibrosis (H CC) Results for this S/P AM MARBLE HELPER procedure are i n the results section. CHLORIDE, S/P Routine 08/01/2020 8:46 Myelofibrosis (HCC) Resu lts for this AM MARBLE HELPER procedure are i n the results section. CALCIUM, TOT, S/P Routine 08/01/2020 8:46 Myelofibrosis (HCC) Results for this AM MARBLE HELPER procedure are i n the results section. BILIRUBIN, TOT, S/P Routine 08/01/2020 8:46 Myelofibrosis (HCC ) Results for this AM MARBLE HELPER procedure are i n the results section. ALBUMIN, S/P Routine 08/01/2020 8:46 Myelofibrosis (HCC) Resul ts for this AM MARBLE HELPER procedure are i n the results section. documented in this encounter Results (ABNORMAL) Morphology Evaluation (Special Smear) (08/01/2020 8:46 AM MARBLE HELPER) Analysis Performed At Patho logist Time Signature Neutrophilic Segs 70 50 - 75 % 08/01/2020 DHPM and Bands 10:47 AM MARBLE HELPER Lymphocytes 14 (L) 18 - 42 % 08/01/2020 DHPM 10:47 AM MARBLE HELPER Eosinophils 1 1 - 3 % 08/01/2020 DHPM 10:47 AM MARBLE HELPER Basophils 2 0 - 2 % 08/01/2020 DHPM 10:47 AM MARBLE HELPER Myelocytes 11 (H) <0.5 % 08/01/2020 DHPM 10:47 AM MARBLE HELPER Blasts 2 (H) <1 % 08/01/2020 DHPM 10:47 AM MARBLE HELPER Nucleated RBC 8 /100 WBC 08/01/2020 DHPM 10:47 AM MARBLE HELPER Manual Absolute 1.96 1.56 - 08/01/2020 DH[facility] Neutrophil Count 6.45 10:47 AM MARBLE HELPER x10(9)/L Comment: ----ADDITIONAL INFORMATION---- The manual absolute neutrophil count is derived from a manual differential count and therefore is not exactly comparable to the automated absolute halie trophil count. Specimen Anatomical Collection Method Collection Time Receive d Time (Source) Location / / Volume Laterality Blood 08/01/2020 8:46 AM 9:15 MARBLE HELPER AM MARBLE HELPER Janusz ArringtonB.S. LAB BLOOD ADD-ON Performing Organization Address City/[facility] Phon e Number [facility] - [address] [place], [place] [address] [place] [address] Laboratories-[address] Type and Screen (with reflex Antibody ID) (08/01/2020 8:46 AM MARBLE HELPER) Patholo gist Method Time Signature ABORh A Pos Not 08/01/2020 ETRM applicable 11:13 AM MARBLE HELPER Antibody Negative Negative 08/01/2020 ETRM Screen 11:10 AM MARBLE HELPER Type & Screen 08/04/2020 08/01/2020 ETRM Expiration 23:59 11:10 AM MARBLE HELPER Testing [place] DEFAULT 08/01/2020 ETRM Location 10:09 AM MARBLE HELPER Specimen Anatomical Collection Method Collection Time Receive d Time (Source) Location / / Volume Laterality Blood (Blood, 08/01/2020 8:46 AM 08/01/19 21 Venous) MARBLE HELPER 10:09 AM MARBLE HELPER Janusz ArringtonB.S. LAB BLOOD BANK TEST ORDERABL ES Performing Organization Address [facility] Phon e Number [facility] - [address] [place], [place] [address] [facility] [place] [address] [facility]-[address] (ABNORMAL) Protein, Total (08/01/2020 8:46 AM MARBLE HELPER) P athologist Signature Protein, 5.8 (L) 6.3 - 7.9 08/01/2020 DTL Total, S g/dL 9:59 AM MARBLE HELPER Specimen Anatomical Collection Method Collection Time Receive d Time (Source) Location / / Volume Laterality Blood (Blood, 08/01/2020 8:46 AM 08/01/19 9:11 Venous) MARBLE HELPER AM MARBLE HELPER Janusz Govea M.B.B.S. LAB BLOOD ADD-ON Performing Organization Address City/[facility]/ZIP [facility] Phon e Number [facility] - [id number] [place] [address] [address] [facility] Albumin (08/01/2020 8:46 AM MARBLE HELPER) P athologist Signature Albumin, S 4.3 3.5 - 5.0 08/01/2020 DTL g/dL 9:59 AM MARBLE HELPER Specimen Anatomical Collection Method Collection Time Receive d Time (Source) Location / / Volume Laterality Blood (Blood, 08/01/2020 8:46 AM 08/01/19 9:11 Venous) MARBLE HELPER AM MARBLE HELPER Janusz Govea M.B.B.S. LAB BLOOD ADD-ON Performing Organization Address City/[facility] Phon e Number [facility] - [address] [facility] Glucose, Random (08/01/2020 8:46 AM MARBLE HELPER) P athologist Signature Glucose, S 126 70 - 140 08/01/2020 DTL mg/dL 9:59 AM MARBLE HELPER Specimen Anatomical Collection Method Collection Time Receive d Time (Source) Location / / Volume Laterality Blood (Blood, 08/01/2020 8:46 AM 08/01/19 9:11 Venous) MARBLE HELPER AM MARBLE HELPER Janusz Govea M.B.B.S. LAB BLOOD TROPONIN Performing Organization Address City/State/ZIP [facility] Phon e Number [facility] - [address] Uric Acid (08/01/2020 8:46 AM MARBLE HELPER) P athologist Signature Uric Acid, S 3.9 2.7 - 6.1 08/01/2020 DTL mg/dL 9:59 AM MARBLE HELPER Specimen Anatomical Collection Method Collection Time Receive d Time (Source) Location / / Volume Laterality Blood (Blood, 08/01/2020 8:46 AM 08/01/19 9:11 Venous) MARBLE HELPER AM MARBLE HELPER Janusz AlexandraSZahraa LAB BLOOD ADD-ON Performing Organization Address City/State/[facility] Code Phon e Number [facility] - [address] [place], [place] [address] [place] [address] (ABNORMAL) Creatinine with Estimated GFR (08/01/2020 8:46 AM MARBLE HELPER) Analysis Performed At Patho logist Time Signature Creatinine 1.06 (H) 0.59 - 08/01/2020 DTL 1.04 mg/dL 9:59 AM MARBLE HELPER eGFR-Non 61 >=60 08/01/2020 DTL Black/ mL/min/BSA 9:59 AM MARBLE HELPER [place] Comment: ----ADDITIONAL INFORMATION---- Estimated GFR calculated using the 2009 CKD_EPI creatinine equation. eGFR-Black/ 70 >=60 mL/min/BSA 2020 9:59 AM MARBLE HELPER DTL Comment: ----ADDITIONAL INFORMATION---- Estimated GFR calculated using the 2009 CKD_EPI creatinine equation. Specimen Anatomical Collection Method Collection Time Receive d Time (Source) Location / / Volume Laterality Blood (Blood, 08/01/2020 8:46 AM 08/01/19 9:11 Venous) MARBLE HELPER AM MARBLE HELPER Janusz AlexandraSZahraa LAB BLOOD ADD-ON Performing Organization Address City/State/ZIP Code Phon e Number [facility] - 200 [place], [place] [address] [place] [address] BUN (Blood Urea Nitrogen) (08/01/2020 8:46 AM MARBLE HELPER) P athologist Signature BUN (Blood Urea 19 6 - 21 08/01/2020 DTL Nitrogen), S mg/dL 9:59 AM MARBLE HELPER Specimen Anatomical Collection Method Collection Time Receive d Time (Source) Location / / Volume Laterality Blood (Blood, 08/01/2020 8:46 AM 08/01/19 9:11 Venous) MARBLE HELPER AM MARBLE HELPER Janusz Higgins.B.S. LAB BLOOD ADD-ON Performing Organization Address City/[facility] Phon e Number [facility] - [address] 200 [facility] Bilirubin, Total (08/01/2020 8:46 AM MARBLE HELPER) athologist Signature Bilirubin, 1.0 <=1.2 mg/dL 08/01/2020 DTL Total, S 9:59 AM MARBLE HELPER Specimen Anatomical Collection Method Collection Time Receive d Time (Source) Location / / Volume Laterality Blood (Blood, 08/01/2020 8:46 AM 08/01/19 9:11 Venous) MARBLE HELPER AM MARBLE HELPER Janusz Dillon.Cain.B.S. LAB BLOOD ADD-ON Performing Organization Address City/[facility]/ZIP Code Phon e Number [facility] - [address] Calcium, Total (08/01/2020 8:46 AM MARBLE HELPER) athologist Signature Calcium, Total, 8.8 8.6 - 10.0 08/01/2020 DTL S mg/dL 9:59 AM MARBLE HELPER Specimen Anatomical Collection Method Collection Time Receive d Time (Source) Location / / Volume Laterality Blood (Blood, 08/01/2020 8:46 AM 08/01/19 9:11 Venous) MARBLE HELPER AM MARBLE HELPER Janusz Higgins.B.S. LAB BLOOD ADD-ON Performing Organization Address City/[facility] Phon e Number [facility] - 200 [place], [place] [address] Chloride (08/01/2020 8:46 AM MARBLE HELPER) athologist Signature Chloride, S 105 98 - 107 08/01/2020 DTL mmol/L 9:59 AM MARBLE HELPER Specimen Anatomical Collection Method Collection Time Receive d Time (Source) Location / / Volume Laterality Blood (Blood, 08/01/2020 8:46 AM 08/01/19 9:11 Venous) MARBLE HELPER AM MARBLE HELPER Naseema Gangat M.B.B.S. LAB BLOOD ADD-ON Performing Organization Address City/[facility]/ZIP Code Phon e Number [facility] - [address] [place], [place] [address] [place] [address] Magnesium (08/01/2020 8:46 AM MARBLE HELPER) P athologist Signature Magnesium, S 2.2 1.7 - 2.3 08/01/2020 DTL mg/dL 9:59 AM MARBLE HELPER Specimen Anatomical Collection Method Collection Time Receive d Time (Source) Location / / Volume Laterality Blood (Blood, 08/01/2020 8:46 AM 08/01/19 9:11 Venous) MARBLE HELPER AM MARBLE HELPER Naseema Gangat M.B.B.S. LAB BLOOD ADD-ON Performing Organization Address City/[facility]/ZIP Code Phon e Number [facility] - [address] Potassium (08/01/2020 8:46 AM MARBLE HELPER) P athologist Signature Potassium, S 4.4 3.6 - 5.2 08/01/2020 DTL mmol/L 9:59 AM MARBLE HELPER Specimen Anatomical Collection Method Collection Time Receive d Time (Source) Location / / Volume Laterality Blood (Blood, 08/01/2020 8:46 AM 08/01/19 9:11 Venous) MARBLE HELPER AM MARBLE HELPER Naseema Gangat M.B.B.S. LAB BLOOD ADD-ON Performing Organization Address City/[facility]/ZIP [facility] Phon e Number [facility] - [address] [place] [address] [address] [facility] Sodium (08/01/2020 8:46 AM MARBLE HELPER) P athologist Signature Sodium, S 143 135 - 145 08/01/2020 9:59 DTL mmol/L AM MARBLE HELPER Specimen Anatomical Collection Method Collection Time Receive d Time (Source) Location / / Volume Laterality Blood (Blood, 08/01/2020 8:46 AM 08/01/19 9:11 Venous) MARBLE HELPER AM MARBLE HELPER Janusz Govea M.B.B.S. LAB BLOOD ADD-ON Performing Organization Address City/[facility] Code Phon e Number [facility] - [address] [place], [place] [address] [place] [address] [place] [phone] [place] [address] Alkaline Phosphatase (08/01/2020 8:46 AM MARBLE HELPER) P athologist Signature Alkaline 38 35 - 104 08/01/2020 DTL Phosphatase, S U/L 9:59 AM MARBLE HELPER Specimen Anatomical Collection Method Collection Time Receive d Time (Source) Location / / Volume Laterality Blood (Blood, 08/01/2020 8:46 AM 08/01/19 9:11 Venous) MARBLE HELPER AM MARBLE HELPER Nasjonathan Govea M.B.B.S. LAB BLOOD ADD-ON Performing Organization Address City/[facility] Phon e Number [facility] - [address] [place], [place] [address] [place] [address] [place] [address] [facility] [address] AST (Aspartate Aminotransferase) (08/01/2020 8:46 AM MARBLE HELPER) [facility] Method Time Signature Aspartate 33 8 - 43 08/01/2020 DTL Aminotransferase U/L 9:59 AM MARBLE HELPER (AST), S Specimen Anatomical Collection Method Collection Time Receive d Time (Source) Location / / Volume Laterality Blood (Blood, 08/01/2020 8:46 AM 08/01/19 9:11 Venous) MARBLE HELPER AM MARBLE HELPER Janusz Govea M.B.B.S. LAB BLOOD ADD-ON Performing Organization Address City/[facility]/ZIP [facility] Phon e Number [facility] - [address] [place], [place] [address] [place] [address] [address] [facility] ALT (Alanine Aminotransferase) (08/01/2020 8:46 AM MARBLE HELPER) Patholo gist Method Time Signature Alanine 12 7 - 45 08/01/2020 DTL Aminotransferase U/L 9:59 AM MARBLE HELPER (ALT), S Specimen Anatomical Collection Method Collection Time Receive d Time (Source) Location / / Volume Laterality Blood (Blood, 08/01/2020 8:46 AM 08/01/19 21 9:11 Venous) MARBLE HELPER AM MARBLE HELPER Janusz Ardon LAB BLOOD ADD-ON Performing Organization Address City/[facility]/ZIP Code Phon e Number [facility] - 200 [place], [place] [address] [facility] [place] [address] Laboratories-[facility] 200 [facility] (ABNORMAL) CBC with Differential, Blood (08/01/2020 8:46 AM MARBLE HELPER) [facility] gist Method Time Signature Hemoglobin 6.6 (L) 11.6 - 08/01/2020 DTL 15.0 g/dL 9:31 AM MARBLE HELPER Hematocrit 22.2 (L) 35.5 - 08/01/2020 DTL 44.9 % 9:31 AM MARBLE HELPER Erythrocytes 2.44 (L) 3.92 - 08/01/2020 DTL 5.13 9:31 AM MARBLE HELPER x10(12)/L MCV 91.0 78.2 - 08/01/2020 DTL 97.9 fL 9:31 AM MARBLE HELPER RBC Distrib Width 25.0 (H) 12.2 - 08/01/2020 DTL 16.1 % 9:31 AM MARBLE HELPER Platelet Count 74 (L) 157 - 371 08/01/2020 DTL x10(9)/L 10:46 AM MARBLE HELPER Comment: Results confirmed by smear, no clumping or interference seen. Leukocytes 2.8 (L) 3.4 - 9.6 x10(9)/L 08/01/2020 10:46 AM MARBLE HELPER DTL Comment: Results confirmed by smear. Neutrophils SeeComment 1.56 - 6.45 x10(9)/L 08/01/2020 10:46 AM MARBLE HELPER DTL Comment: Auto-diff results not valid. Se e manual differential. Specimen Anatomical Collection Method Collection Time Receive d Time (Source) Location / / Volume Laterality Blood (Blood, 08/01/2020 8:46 AM 08/01/19 21 9:15 Venous) MARBLE HELPER AM MARBLE HELPER Janusz Ardon LAB BLOOD ADD-ON Performing Organization Address City/State/ZIP Code Phon e Number [facility] - [address] [place], [place] [address] [facility] [place] [address] Laboratories-[facility] [address] documented in this encounter Visit Diagnoses Diagnosis Myelofibrosis (HCC) documented in this encounter
--- OUTSIDE RECORDS SUMMARY | 2022-05-02 12:34 | XMS_ITS | Encounter Summary ---
:1970 Author Organization [facility] Address [address] [place] [address] Care Team Providers Name Role Phone Unavailable Primary Care Provider Unavailable Encounter Details Date Type Department Care Team Description 08/04/2020 Orders Only Division of Krzysztof Pearce Myelofibr osis (HCC) Hematology in (Primary Dx) [place], [place] [phone] [address] [facility] (Work) [place] [address] Social History Tobacco Use Types Packs/Day Years Used Date Smoking Tobacco: Former Smokeless Tobacco: Never Sex Assigned at Date Recorded Female 07/24/2021 11:03 AM FIXER BOARDING ROOM documented as of this encounter Plan of Treatment Not on filedocumented as of this encounter Results (ABNORMAL) CBC with Differential, Blood (08/04/2020 10:17 AM FIXER BOARDING ROOM) [facility] Time Signature Hemoglobin 6.8 (L) 11.6 - 08/04/2020 DTL 15.0 g/dL 10:46 AM FIXER BOARDING ROOM Hematocrit 23.1 (L) 35.5 - 08/04/2020 DTL 44.9 % 10:46 AM FIXER BOARDING ROOM Erythrocytes 2.52 (L) 3.92 - 08/04/2020 DTL 5.13 10:46 AM FIXER BOARDING ROOM x10(12)/L MCV 91.7 78.2 - 08/04/2020 DTL 97.9 fL 10:46 AM FIXER BOARDING ROOM RBC Distrib Width 24.5 (H) 12.2 - 08/04/2020 DTL 16.1 % 10:46 AM FIXER BOARDING ROOM Platelet Count 74 (L) 157 - 371 08/04/2020 DTL x10(9)/L 10:46 AM FIXER BOARDING ROOM Leukocytes 2.5 (L) 3.4 - 9.6 08/04/2020 DTL x10(9)/L 11:49 AM FIXER BOARDING ROOM Comment: Results confirmed by smear. Neutrophils SeeComment 1.56 - 6.45 x10(9)/L 08/04/2020 11:49 AM FIXER BOARDING ROOM DTL Comment: Auto-diff results not valid. Se e manual differential. Specimen Anatomical Collection Method Collection Time Receive d Time (Source) Location / / Volume Laterality Blood (Blood, 08/04/2020 10:17 08/04/2020 Venous) AM FIXER BOARDING ROOM 10:40 AM FIXER BOARDING ROOM Janusz Ardon LAB BLOOD ADD-ON Performing Organization Address City/State/ZIP Code Phon e Number [facility] - [address] [place], [place] [address] [facility] [place] [address] Laboratories-[facility] [address] documented in this encounter Visit Diagnoses Diagnosis Myelofibrosis (HCC) - Primary documented in this encounter
--- OUTSIDE RECORDS SUMMARY | 2022-05-02 12:34 | XMS_ITS | Encounter Summary ---
:1970 Author Organization [facility] Address [address] [place] [address] Care Team Providers Name Role Phone Unavailable Primary Care Provider Unavailable Encounter Details Date Type Department Care Team Description 08/02/2020 Infusion Department of Infusion Janusz Govea M [facility]ofib[facility]CC[facility] [address] [address] [phone] Social History Tobacco Use Types Packs/Day Years Used Date Smoking Tobacco: Former Smokeless Tobacco: Never Sex Assigned at Date Recorded Female 07/24/2021 11:03 AM PEANUT PICKER documented as of this encounter Last Filed Vital Signs Vital Sign Reading Time Taken Comments Blood Pressure 138/71 08/02/2020 3:51 PM PEANUT PICKER Pulse 113 08/02/2020 3:51 PM PEANUT PICKER Temperature 36.6 ??C (97.9 ??F) 08/02/2020 3:51 PM PEANUT PICKER Respiratory Rate 20 08/02/2020 3:51 PM PEANUT PICKER Oxygen Saturation - - Inhaled Oxygen Concentration - - Weight - - Height - - Body Mass Index - - documented in this encounter Plan of Treatment Not on filedocumented as of this encounter Procedures Procedure Name Priority Date/Time Associated Diagnosis Comme nts TRANSFUSE RED BLOOD Routine 08/02/2020 1:24 PM PEANUT PICKER Myelofibros is (HCC) CELLS documented in this encounter Results Transfuse Red Blood Cells : (08/02/2020 3:52 PM PEANUT PICKER) Janusz ArringtonBZahraaSZahraa BLOOD TRANSFUSION ORDERABLES Transfuse Red Blood Cells : , 1 Units (08/02/2020 3:52 PM PEANUT PICKER) Janusz ArringtonBZahraaSZahraa BLOOD TRANSFUSION ORDERABLES documented in this encounter Visit Diagnoses Diagnosis Myelofibrosis (HCC) - Primary documented in this encounter Administered Medications Inactive Administered Medications - up to 3 most recent administrations Medication Order MAR Action Action Date Dose Rate Site NaCl 0.9% infusion New Bag 08/02/2020 3:29 PM 180 mL/hr 180 mL/hr 10-250 mL/hr, intravenous, As PEANUT PICKER needed, Between Consecutive Piggyback Administrations, Starting on Fri08/02/20 at 1250, Infuse at the same rate as the piggyback until tubing clears or up to a volume of 20 mL. Select for IV medication administration when no maintenance IV available or when IV medications are not compatible with maintenance fluid. documented in this encounter
--- OUTSIDE RECORDS SUMMARY | 2022-05-02 12:34 | XMS_ITS | Encounter Summary ---
:1970 Author Organization [facility] Address [address] [place] [address] Care Team Providers Name Role Phone Unavailable Primary Care Provider Unavailable Encounter Details Date Type Department Care Team Description 08/04/2020 Orders Only Division of Zita Berger Myelofibrosis (HCC) Hematology in [phone] (Primary Dx) [place], [place] (Work) [address] [place] [phone] Social History Tobacco Use Types Packs/Day Years Used Date Smoking Tobacco: Former Smokeless Tobacco: Never Sex Assigned at Date Recorded Female 07/24/2021 11:03 AM CHASSIS WIRER documented as of this encounter Plan of Treatment Not on filedocumented as of this encounter Results Type and Screen (with reflex Antibody ID) (08/04/2020 10:17 AM CHASSIS WIRER) [facility] gist Method Time Signature ABORh A Pos Not 08/04/2020 ETRM applicable 11:23 AM CHASSIS WIRER Antibody Negative Negative 08/04/2020 ETRM Screen 11:36 AM CHASSIS WIRER Type & Screen 08/07/2020 08/04/2020 ETRM Expiration 23:59 11:23 AM CHASSIS WIRER Testing Deidra DEFAULT 08/04/2020 ETRM Location 10:45 AM CHASSIS WIRER Specimen Anatomical Collection Method Collection Time Receive d Time (Source) Location / / Volume Laterality Blood (Blood, 08/04/2020 10:17 08/04/2020 Venous) AM CHASSIS WIRER 10:45 AM CHASSIS WIRER Janusz Ardon LAB BLOOD BANK TEST ORDERABL ES Performing Organization Address City/State/ZIP Code Phon e Number [facility] - [address] [place], [place] [address] [facility] [place] [address] Laboratories-[facility] [address] documented in this encounter Visit Diagnoses Diagnosis Myelofibrosis (HCC) - Primary documented in this encounter
--- OUTSIDE RECORDS SUMMARY | 2022-05-02 12:34 | XMS_ITS | Encounter Summary ---
:1970 Author Organization [facility] Address [address] [place] [address] Care Team Providers Name Role Phone Unavailable Primary Care Provider Unavailable Reason for Referral Outpatient (Routine) - Closed Specialty Diagnoses / Procedures Referred By Contact Refer red To Contact Hematology Oncology Diagnoses Myelofibrosis (HCC) [facility] [address] [place] [phone] Referral ID Status Reason Start Date Expiration Date Visits Requ ested Visits Authorized [id number] Closed 08/14/2020 08/14/2021 1 1 Scheduling Instructions Please schedule with Dr. 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 documented as of this encounter Plan of Treatment Scheduled Referrals Name Type Priority Associated Diagnoses Order S [facility] Hematology office Outpatient Referral Routine Myelofibrosis (H CC) Expected: visit (clinic) 09/12/2020, Expires: 08/14/2023 documented as of this encounter Results (ABNORMAL) Morphology Evaluation (Special Smear) (09/13/2020 8:10 AM FOILING MACHINE ADJUSTER) Patholo gist Method Time Signature Neutrophilic Segs 85 (H) 50 - 75 % 09/13/2020 [facility] 10:28 AM FOILING MACHINE ADJUSTER Lymphocytes 6 (L) 18 - 42 % 09/13/2020 [facility] 10:28 AM FOILING MACHINE ADJUSTER Monocytes 1 (L) 2 - 11 % 09/13/2020 [facility] 10:28 AM FOILING MACHINE ADJUSTER Eosinophils 1 1 - 3 % 09/13/2020 [facility] 10:28 AM FOILING MACHINE ADJUSTER Basophils 1 0 - 2 % 09/13/2020 PM 10:28 AM FOILING MACHINE ADJUSTER Metamyelocytes 1 (H) <1 % 09/13/2020 [facility] 10:28 AM FOILING MACHINE ADJUSTER Myelocytes 5 (H) <0.5 % 09/13/2020 [facility] 10:28 AM FOILING MACHINE ADJUSTER Nucleated RBC 6 /100 WBC 09/13/2020 PM 10:28 AM FOILING MACHINE ADJUSTER Manual Absolute 2.64 1.56 - 09/13/2020 [facility] Neutrophil Count 6.45 10:28 AM FOILING MACHINE ADJUSTER x10(9)/L Comment: ----ADDITIONAL INFORMATION---- The manual absolute neutrophil count is derived from a manual differential count and therefore is not exactly comparable to the automated absolute halie trophil count. Interpretation Moderate dacrocytes are present. 10:28 AM FOILING MACHINE ADJUSTER [facility] Reviewed by: Liz 09/13/2020 10:28 AM FOILING MACHINE ADJUSTER [facility] Specimen Anatomical Collection Method Collection Time Receive d Time (Source) Location / / Volume Laterality Blood (Blood, 09/13/2020 8:10 AM 09/14/19 8:37 Venous) FOILING MACHINE ADJUSTER AM FOILING MACHINE ADJUSTER Janusz Ardon LAB BLOOD ADD-ON Performing Organization Address City/State/ZIP Code Phon e Number [facility] - [address] [place], [place] [address] [place] [address] [facility] [address] (ABNORMAL) Comprehensive Metabolic Panel (09/13/2020 8:10 AM FOILING MACHINE ADJUSTER) P athologist Signature Potassium, S 4.8 3.6 - 5.2 09/13/2020 DTL mmol/L 9:10 AM FOILING MACHINE ADJUSTER Sodium, S 141 135 - 145 09/13/2020 DTL mmol/L 9:10 AM FOILING MACHINE ADJUSTER Chloride, S 106 98 - 107 09/13/2020 DTL mmol/L 9:10 AM FOILING MACHINE ADJUSTER Bicarbonate, S 24 22 - 29 09/13/2020 DTL mmol/L 9:10 AM FOILING MACHINE ADJUSTER Anion Gap 11 7 - 15 09/13/2020 DTL 9:10 AM FOILING MACHINE ADJUSTER BUN (Blood Urea 24 (H) 6 - 21 09/13/2020 DTL Nitrogen), S mg/dL 9:10 AM FOILING MACHINE ADJUSTER Creatinine 0.98 0.59 - 09/13/2020 DTL 1.04 mg/dL 9:10 AM FOILING MACHINE ADJUSTER eGFR-Non 67 >=60 09/13/2020 DTL Black/ mL/min/BSA 9:10 AM FOILING MACHINE ADJUSTER [place] Comment: ----ADDITIONAL INFORMATION---- Estimated GFR calculated using the 2009 CKD_EPI creatinine equation. eGFR-Black/ 77 >=60 mL/min/BSA 2020 9:10 AM FOILING MACHINE ADJUSTER DTL Comment: ----ADDITIONAL INFORMATION---- Estimated GFR calculated using the 2009 CKD_EPI creatinine equation. Calcium, Total, S 8.6 8.6 - 10.0 mg/dL 09/13/2020 9:10 AM FOILING MACHINE ADJUSTER DTL Glucose, S 111 70 - 140 mg/dL 09/13/2020 9:10 AM FOILING MACHINE ADJUSTER D TL Protein, Total, S 6.1 (L) 6.3 - 7.9 g/dL 09/13/2020 9:10 A M FOILING MACHINE ADJUSTER DTL Albumin, S 4.2 3.5 - 5.0 g/dL 09/13/2020 9:10 AM FOILING MACHINE ADJUSTER D TL Aspartate Aminotransferase 28 8 - 43 U/L 09/13/2020 9 :10 AM FOILING MACHINE ADJUSTER DTL (AST), S Alkaline Phosphatase, S 42 35 - 104 U/L 09/13/2020 9: 10 AM FOILING MACHINE ADJUSTER DTL Alanine Aminotransferase 16 7 - 45 U/L 09/13/2020 9:1 0 AM FOILING MACHINE ADJUSTER DTL (ALT), S Bilirubin, Total, S 0.8 <=1.2 mg/dL 09/13/2020 9:10 AM FOILING MACHINE ADJUSTER DTL Specimen Anatomical Collection Method Collection Time Receive d Time (Source) Location / / Volume Laterality Blood (Blood, 09/13/2020 8:10 AM 09/14/19 21 8:34 Venous) FOILING MACHINE ADJUSTER AM FOILING MACHINE ADJUSTER Janusz AlexandraSZahraa LAB BLOOD ADD-ON Performing Organization Address City/State/ZIP Code Phon e Number [facility] - 200 [place], [place] [address] [facility] [place] [address] [facility] 200 [facility] (ABNORMAL) CBC with Differential, Blood (09/13/2020 8:10 AM FOILING MACHINE ADJUSTER) [facility] Method Time Signature Hemoglobin 6.5 (L) 11.6 - 09/13/2020 DTL 15.0 g/dL 9:02 AM FOILING MACHINE ADJUSTER Hematocrit 22.1 (L) 35.5 - 09/13/2020 DTL 44.9 % 9:02 AM FOILING MACHINE ADJUSTER Erythrocytes 2.35 (L) 3.92 - 09/13/2020 DTL 5.13 9:02 AM FOILING MACHINE ADJUSTER x10(12)/L MCV 94.0 78.2 - 09/13/2020 DTL 97.9 fL 9:02 AM FOILING MACHINE ADJUSTER RBC Distrib Width 28.7 (H) 12.2 - 09/13/2020 DTL 16.1 % 10:28 AM FOILING MACHINE ADJUSTER Platelet Count 80 (L) 157 - 371 09/13/2020 DTL x10(9)/L 10:28 AM FOILING MACHINE ADJUSTER Comment: Results confirmed by smear, no clumping or interference seen. Leukocytes 3.1 (L) 3.4 - 9.6 x10(9)/L 09/13/2020 10:28 AM FOILING MACHINE ADJUSTER DTL Comment: Results confirmed by smear. Neutrophils SeeComment 1.56 - 6.45 x10(9)/L 09/13/2020 10:28 AM FOILING MACHINE ADJUSTER DTL Comment: Auto-diff results not valid. Se e manual differential. Specimen Anatomical Collection Method Collection Time Receive d Time (Source) Location / / Volume Laterality Blood (Blood, 09/13/2020 8:10 AM 09/14/19 21 8:37 Venous) FOILING MACHINE ADJUSTER AM FOILING MACHINE ADJUSTER Janusz AlexandraSZahraa LAB BLOOD ADD-ON Performing Organization Address City/State/ZIP Code Phon e Number [facility] - 200 [place], [place] [address] [facility] [place] [address] [facility] 200 [facility] documented in this encounter Visit Diagnoses Diagnosis Myelofibrosis (HCC) - Primary documented in this encounter
--- OUTSIDE RECORDS SUMMARY | 2022-05-02 12:34 | XMS_ITS | Encounter Summary ---
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
--- OUTSIDE RECORDS SUMMARY | 2022-05-02 12:34 | XMS_ITS | Encounter Summary ---
:1970 Author Organization [facility] Address [address] [place] [address] Care Team Providers Name Role Phone Unavailable Primary Care Provider Unavailable Reason for Referral Specialty Diagnoses / Procedures Referred By Contact Refer red To Contact Janusz Govea M.B .B.S. [facility] [address] [place] [phone] Referral ID Status Reason Start Date Expiration Date Visits Requ ested Visits Authorized ER MACHINE OPERATOR Encounter Details Date Type Department Care Team Description 08/01/2020 Clinical Communication Division of Hematology Janusz Govea, in [facility] milton ArringtonB.S. 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
--- OUTSIDE RECORDS SUMMARY | 2022-05-02 12:34 | XMS_ITS | Encounter Summary ---
:1970 Author Organization [facility] Address [address] [place] [address] Care Team Providers Name Role Phone Unavailable Primary Care Provider Unavailable Reason for Visit Reason Comments Outpatient Infusion RBCs Encounter Details Date Type Department Care Team Description 08/18/2020 Infusion Department of Infusion Janusz Govea M yelofibrosis (HCC) 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 documented as of this encounter Last Filed Vital Signs Vital Sign Reading Time Taken Comments Blood Pressure 126/70 08/18/2020 12:49 PM TRAVELING ACCOUNTANT Pulse 72 08/18/2020 12:49 PM TRAVELING ACCOUNTANT Temperature 36.6 ??C (97.9 ??F) 08/18/2020 12:49 PM TRAVELING ACCOUNTANT Respiratory Rate 18 08/18/2020 12:49 PM TRAVELING ACCOUNTANT Oxygen Saturation - - Inhaled Oxygen Concentration - - Weight - - Height - - Body Mass Index - - documented in this encounter Plan of Treatment Pending Results Name Type Priority Associated Diagnoses Date/Ti me Prepare Red Blood Blood Bank Routine Myelofibrosis (HCC) 11/2020 8:18 AM TRAVELING ACCOUNTANT Cells, 1 Units documented as of this encounter Procedures Procedure Name Priority Date/Time Associated Diagnosis Comme nts TRANSFUSE RED BLOOD Routine 08/18/2020 10:49 AM TRAVELING ACCOUNTANT Myelofibro sis (HCC) CELLS PREPARE RED BLOOD CELLS Routine 08/18/2020 8:18 AM TRAVELING ACCOUNTANT Myelofi brosis (HCC) documented in this encounter Results Transfuse Red Blood Cells : (08/18/2020 12:58 PM TRAVELING ACCOUNTANT) Naseema Gangat M.B.B.S. BLOOD TRANSFUSION ORDERABLES Transfuse Red Blood Cells : , 1 Units (08/18/2020 12:58 PM TRAVELING ACCOUNTANT) Nasjonathan Ganwing M.B.B.S. BLOOD TRANSFUSION ORDERABLES documented in this encounter Visit Diagnoses Diagnosis Myelofibrosis (HCC) - Primary documented in this encounter Administered Medications Inactive Administered Medications - up to 3 most recent administrations Medication Order MAR Action Action Date Dose Rate Site NaCl 0.9% infusion New Bag 08/18/2020 12:29 PM 180 mL/hr 180 mL/hr 20-500 mL/hr, intravenous, TRAVELING ACCOUNTANT As needed, Between Unit of Blood Products, Starting on Fri08/18/20 at 1003, Infuse at the same rate as the blood infusion until tubing cleared. Nurse may reduce rate to 20 mL/hour or as otherwise directed until next blood infusion arrives then discontinue when infusion complete. sodium chloride 0.9 % injection 3 mL Given 08/18/2020 12:48 PM TRAVELING ACCOUNTANT 3 mL 3 mL, intra-catheter, As needed, line care, Starting on Fri08/18/20 at 1003, Prior to and following infusion and between multiple consecutive infusions. Given 08/18/2020 10:37 AM TRAVELING ACCOUNTANT 3 mL documented in this encounter
--- OUTSIDE RECORDS SUMMARY | 2022-05-02 12:34 | XMS_ITS | Encounter Summary ---
:1970 Author Organization [facility] Address [address] [place] [address] Care Team Providers Name Role Phone Unavailable Primary Care Provider Unavailable Reason for Visit Episode Based Medications (Routine) - Closed Specialty Diagnoses / Procedures Referred By Contact Refer red To Contact Medical Oncology / Diagnoses Myelofibrosis (HCC) Janusz Govea Rst Inf Onc [facility] Oncology Procedures ONCBCN INFUSION APPOINTMENT REQUEST 09 ONC THER INF M.B.B.S. [address] [place] [address] [place] [phone] Referral ID Status Reason Start Date Expiration Date Visits Requ ested Visits Authorized [id number] Closed 06/06/2020 06/20/2021 99 30 Encounter Details Date Type Department Care Team Description 08/01/2020 Infusion Department of Oncology Janusz Govea M yelofibrosis (HCC) in [facility] M.B.B.S. 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 documented as of this encounter Last Filed Vital Signs Vital Sign Reading Time Taken Comments Blood Pressure 135/73 08/01/2020 3:30 PM ANILINE PRESS WORKER Pulse 90 08/01/2020 3:30 PM ANILINE PRESS WORKER Temperature 36.2 ??C (97.1 ??F) 08/01/2020 3:30 PM ANILINE PRESS WORKER Respiratory Rate 22 08/01/2020 3:30 PM ANILINE PRESS WORKER Oxygen Saturation - - Inhaled Oxygen Concentration [...] Action Date Dose Rate Site Research IRB [id number] New Bag 08/01/2020 1:31 PM ANILINE PRESS WORKER 1,130 mg 5 57 mL/hr 9-- 1,130 [...] injection 30 mL Given 08/01/2020 3:23 PM ANILINE PRESS WORKER 30 mL 30 mL, intravenous, Once, On Fri08/01/20 at 1330, For 1 dose, Post chemotherapy flush documented in this encounter
--- OUTSIDE RECORDS SUMMARY | 2022-05-02 12:34 | XMS_ITS | Encounter Summary ---
:1970 Author Organization [facility] Address [address] [place] [address] Care Team Providers Name Role Phone Unavailable Primary Care Provider Unavailable Encounter Details Date Type Department Care Team Description 08/08/2020 Orders Only Division of Krzysztof Pearce Myelofibr osis (HCC) Hematology in (Primary Dx) [place], [place] [phone] [address] [facility] (Work) [place] [address] Social History Tobacco Use Types Packs/Day Years Used Date Smoking Tobacco: Former Smokeless Tobacco: Never Sex Assigned at Date Recorded Female 07/24/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
--- OUTSIDE RECORDS SUMMARY | 2022-05-02 12:34 | XMS_ITS | Encounter Summary ---
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
--- OUTSIDE RECORDS SUMMARY | 2022-05-02 12:34 | XMS_ITS | Encounter Summary ---
:1970 Author Organization [facility] Address [address] [place] [address] Care Team Providers Name Role Phone Unavailable Primary Care Provider Unavailable Encounter Details Date Type Department Care Team Description 08/01/2020 Orders Only Division of Krzysztof Pearce Myelofibr osis (HCC) Hematology in (Primary Dx) [place], [place] [phone] [address] [email or web address] (Work) [place] [address] Social History Tobacco Use Types Packs/Day Years Used Date Smoking Tobacco: Former Smokeless Tobacco: Never Sex Assigned at Date Recorded Female 07/24/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
--- OUTSIDE RECORDS SUMMARY | 2022-05-02 12:34 | XMS_ITS | Encounter Summary ---
:1970 Author Organization [facility] Address [address] [place] [address] Care Team Providers Name Role Phone Unavailable Primary Care Provider Unavailable Reason for Visit Outpatient (Routine) - Closed Specialty Diagnoses / Procedures Referred By Contact Refer red To Contact Hematology Oncology Diagnoses [facility]elofibrosis [facility]CC) [facility] [address] [place] [phone] Referral ID Status Reason Start Date Expiration Date Visits Requ ested Visits Authorized [id number] Closed 08/14/2020 08/14/2021 1 1 Encounter Details Date Type Department Care Team Description 09/12/2020 Virtual Visit Division of Xuan, Myelofibrosis (HCC) Hematology in [facility] (Primary Dx) [place], [place] M.B.B.S. [address] [place] [address] [place] [phone] Social History Tobacco Use Types Packs/Day Years Used Date Smoking Tobacco: Former Smokeless Tobacco: Never Sex Assigned at Date Recorded Female 07/24/2021 11:03 AM ALLOY WEIGHER documented as of this encounter Progress Notes [...] of transfusions, her last transfusion was at [facility] on 08/11/2020, which consisted of 1 unit [...] 1 unit of RBC transfusion tomorrow at [facility]. #3 Hyperuricemia She is on allopurinol 300 mg daily. #4 Followup I plan to see her in 3 [address] time[address] Evy Foreman. CT CT Job ID: [id number] Y WEIGHER documented in this encounter Plan of Treatment Not on filedocumented as of this encounter Results Type and Screen (with reflex Antibody ID) (09/13/2020 8:10 AM ALLOY WEIGHER) [facility] gist Method Time Signature ABORh A Pos Not 09/13/2020 ETRM applicable 9:29 AM ALLOY WEIGHER Antibody Negative Negative 09/13/2020 ETRM Screen 9:29 AM ALLOY WEIGHER Type & Screen 09/16/2020 09/13/2020 ETRM Expiration 23:59 9:29 AM ALLOY WEIGHER Testing [place] DEFAULT 09/13/2020 ETRM Location 8:46 AM ALLOY WEIGHER Specimen Anatomical Collection Method Collection Time Receive d Time (Source) Location / / Volume Laterality Blood (Blood, 09/13/2020 8:10 AM 09/14/19 21 8:46 Venous) ALLOY WEIGHER AM ALLOY WEIGHER Janusz Ardon LAB BLOOD BANK TEST ORDERABL ES Performing Organization Address City/State/ZIP Code Phon e Number [facility] - [address] [place], [place] [address] [facility] [place] [address] Laboratories-[facility] [address] documented in this encounter Visit Diagnoses Diagnosis Myelofibrosis (HCC) - Primary documented in this encounter
--- OUTSIDE RECORDS SUMMARY | 2022-05-02 12:34 | XMS_ITS | Encounter Summary ---
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 documented as of 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 Additional Health Concerns Infection Onset Date Last Indicated Resolved Time COVID19 Pending 02/16/2021 02/16/2021 02/16/2021 11:25 AM CDT COVID19 Pending 06/06/2021 06/06/2021 06/06/2021 10:01 PM PHYSICIAN COVID19 Pending 06/29/2021 07/15/2021 07/15/2021 2:24 PM PHYSICIAN COVID19 Pending 07/22/2021 07/22/2021 07/22/2021 4:53 PM PHYSICIAN documented as of this encounter Care Teams Wing Commander Relationship Specialty Start Date End Date None Reported, Pcp PCP - General Family Medicine 02/16/21 documented as of this encounter
--- OUTSIDE RECORDS SUMMARY | 2022-05-02 12:34 | XMS_ITS | Encounter Summary ---
:1970 Author Organization [facility] Address [address] [place] [address] Care Team Providers Name Role Phone Unavailable Primary Care Provider Unavailable Reason for Visit Reason Comments Outpatient Infusion Encounter Details Date Type Department Care Team Description 08/11/2020 Infusion Department of Infusion Janusz Govea M yelofibrosis (HCC) Therapy in [facility]. (Primary Dx) [address] [phone] Social History Tobacco Use Types Packs/Day Years Used Date Smoking Tobacco: Former Smokeless Tobacco: Never Sex Assigned at Date Recorded Female 07/24/2021 11:03 AM OFFICE SERVICES ASSISTANT documented as of this encounter Last Filed Vital Signs Vital Sign Reading Time Taken Comments Blood Pressure 122/88 08/11/2020 3:07 PM OFFICE SERVICES ASSISTANT Pulse 104 08/11/2020 3:07 PM OFFICE SERVICES ASSISTANT Temperature 37.2 ??C (99 ??F) 08/11/2020 3:07 PM OFFICE SERVICES ASSISTANT Respiratory Rate 18 08/11/2020 3:07 PM OFFICE SERVICES ASSISTANT Oxygen Saturation - - Inhaled Oxygen Concentration - - Weight - - Height - - Body Mass Index - - documented in this encounter Plan of Treatment Pending Results Name Type Priority Associated Diagnoses Date/Ti me Prepare Red Blood Blood Bank Routine Myelofibrosis (HCC) 8:24 AM OFFICE SERVICES ASSISTANT Cells, 1 Units documented as of this encounter Procedures Procedure Name Priority Date/Time Associated Diagnosis Comme nts TRANSFUSE RED BLOOD Routine 08/11/2020 12:38 PM OFFICE SERVICES ASSISTANT Myelofibro sis (HCC) CELLS PREPARE RED BLOOD CELLS Routine 08/11/2020 8:24 AM OFFICE SERVICES ASSISTANT Myelofi brosis (HCC) documented in this encounter Results Transfuse Red Blood Cells : (08/11/2020 3:08 PM OFFICE SERVICES ASSISTANT) Janusz Dillon.Cain.B.S. BLOOD TRANSFUSION ORDERABLES Transfuse Red Blood Cells : , 1 Units (08/11/2020 3:08 PM OFFICE SERVICES ASSISTANT) Janusz Govea M.B.B.S. BLOOD TRANSFUSION ORDERABLES documented in this encounter Visit Diagnoses Diagnosis Myelofibrosis (HCC) - Primary documented in this encounter
--- OUTSIDE RECORDS SUMMARY | 2022-05-02 12:34 | XMS_ITS | Encounter Summary ---
:1970 Author Organization [facility] Address [address] [place] [address] Care Team Providers Name Role Phone Unavailable Primary Care Provider Unavailable Reason for Visit Reason Comments Intake Assessment Encounter Details Date Type Department Care Team Description 07/31/2020 Clinical Communication Division of Tim Govea Hematology in [place], [place] M.B.B.S. 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 GROUT SEWER LINE REPAIRER documented in 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
--- OUTSIDE RECORDS SUMMARY | 2022-05-02 12:34 | XMS_ITS | Encounter Summary ---
:1970 Author Organization [facility] Address [address] [place] [address] Care Team Providers Name Role Phone Unavailable Primary Care Provider Unavailable Reason for Referral Specialty Diagnoses / Procedures Referred By Contact Refer red To Contact Janusz Govea M.B .BZahraaS. [facility] [address] [place] [phone] Referral ID Status Reason Start Date Expiration Date Visits Requ ested Visits Authorized UETRY WORKER Encounter Details Date Type Department Care Team Description 08/04/2020 Clinical Communication Division of Hematology Janusz Govea, in [facility] milton ArringtonB.S. 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 Waiting on phone call back to set up labs for mon/thurs. Thanks. UETRY WORKER Addendum Note - Mayank Galindo R.N. - 08/04/2020 12:16 PM MARQUETRY WORKER Addended by: MAYANK GALINDO on: 08/04/2020 12:16 PM Modules accepted: Orders UETRY WORKER Addendum Note - Bre Maddox R.N. - 08/04/2020 11:27 AM MARQUETRY WORKER Addended by: BRE MADDOX on: 08/04/2020 11:27 AM Modules accepted: Orders UETRY WORKER Telephone Encounter - Mayank Galindo R.N. - 08/04/2020 11:12 AM MARQUETRY WORKER Patient has transfusion scheduled today UETRY WORKER documented in this encounter Plan of Treatment Scheduled Referrals Name Type Priority Associated Diagnoses Order S chedule Blood Administration Outpatient Routine Myelofibrosis (HCC) Expected: in Infusion Therapy; Referral [id number], Expires: 08/04/2023 documented as of this encounter Visit Diagnoses Diagnosis Myelofibrosis (HCC) - Primary documented in this encounter
--- OUTSIDE RECORDS SUMMARY | 2022-05-02 12:34 | XMS_ITS | Encounter Summary ---
:1970 Author Organization [facility] Address [address] [place] [address] Care Team Providers Name Role Phone Unavailable Primary Care Provider Unavailable Encounter Details Date Type Department Care Team Description 09/13/2020 Hospital Encounter Department of Gangat, Myelofib rosis ([facility]) Laboratory Medicine [facility], and Pathology, [facility], in [address] [place] [phone] [place], [place] [phone] (Work) [phone] Social History Tobacco Use Types Packs/Day Years Used Date Smoking Tobacco: Former Smokeless Tobacco: Never Sex Assigned at Date Recorded Female 07/24/2021 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 CBC WITH Routine 09/13/2020 8:10 Myelofibrosis (HCC) Resul ts for this DIFFERENTIAL, B AM RESIDENTIAL SALES CONSULTANT procedure ar e in the results section. TYPE AND SCREEN Routine 09/13/2020 8:10 Myelofibrosis (HCC) Re sults for this AM RESIDENTIAL SALES CONSULTANT procedure are i n the results section. COMPREHENSIVE Routine 09/13/2020 8:10 Myelofibrosis (HCC) Resu lts for this METABOLIC PANEL, S/P AM RESIDENTIAL SALES CONSULTANT procedu re are in the results section. documented in this encounter Results Type and Screen (with reflex Antibody ID) (09/13/2020 8:10 AM RESIDENTIAL SALES CONSULTANT) [facility] gist Method Time Signature ABORh A Pos Not 09/13/2020 ETRM applicable 9:29 AM RESIDENTIAL SALES CONSULTANT Antibody Negative Negative 09/13/2020 ETRM Screen 9:29 AM RESIDENTIAL SALES CONSULTANT Type & Screen 09/16/2020 09/13/2020 ETRM Expiration 23:59 9:29 AM RESIDENTIAL SALES CONSULTANT Testing [place] DEFAULT 09/13/2020 ETRM Location 8:46 AM RESIDENTIAL SALES CONSULTANT Specimen Anatomical Collection Method Collection Time Receive d Time (Source) Location / / Volume Laterality Blood (Blood, 09/13/2020 8:10 AM 09/14/19 21 8:46 Venous) RESIDENTIAL SALES CONSULTANT AM RESIDENTIAL SALES CONSULTANT Janusz Ardon LAB BLOOD BANK TEST ORDERABL ES Performing Organization Address City/State/ZIP Code Phon e Number [facility] - [address] [place], [place] [address] [facility] [place] [address] [address] (ABNORMAL) Morphology Evaluation (Special Smear) (09/13/2020 8:10 AM RESIDENTIAL SALES CONSULTANT) Patholo gist Method Time Signature Neutrophilic Segs 85 (H) 50 - 75 % 09/13/2020 [facility] and Bands 10:28 AM RESIDENTIAL SALES CONSULTANT Lymphocytes 6 (L) 18 - 42 % 09/13/2020 [facility] 10:28 AM RESIDENTIAL SALES CONSULTANT Monocytes 1 (L) 2 - 11 % 09/13/2020 [facility] 10:28 AM RESIDENTIAL SALES CONSULTANT Eosinophils 1 1 - 3 % 09/13/2020 PM 10:28 AM RESIDENTIAL SALES CONSULTANT Basophils 1 0 - 2 % 09/13/2020 [facility] 10:28 AM RESIDENTIAL SALES CONSULTANT Metamyelocytes 1 (H) <1 % 09/13/2020 [facility] 10:28 AM RESIDENTIAL SALES CONSULTANT Myelocytes 5 (H) <0.5 % 09/13/2020 PM 10:28 AM RESIDENTIAL SALES CONSULTANT Nucleated RBC 6 /100 WBC 09/13/2020 PM 10:28 AM RESIDENTIAL SALES CONSULTANT Manual Absolute 2.64 1.56 - 09/13/2020 [facility] Neutrophil Count 6.45 10:28 AM RESIDENTIAL SALES CONSULTANT x10(9)/L Comment: ----ADDITIONAL INFORMATION---- The manual absolute neutrophil count is derived from a manual differential count and therefore is not exactly comparable to the automated absolute halie trophil count. Interpretation Moderate dacrocytes are present. 10:28 AM RESIDENTIAL SALES CONSULTANT [facility] Reviewed by: Liz 09/13/2020 10:28 AM RESIDENTIAL SALES CONSULTANT [facility] Specimen Anatomical Collection Method Collection Time Receive d Time (Source) Location / / Volume Laterality Blood (Blood, 09/13/2020 8:10 AM 09/14/19 21 8:37 Venous) RESIDENTIAL SALES CONSULTANT AM RESIDENTIAL SALES CONSULTANT Janusz Ardon LAB BLOOD ADD-ON Performing Organization Address City/State/ZIP Code Phon e Number [facility] - [address] [place] [address] [place] [address] [address] (ABNORMAL) Comprehensive Metabolic Panel (09/13/2020 8:10 AM RESIDENTIAL SALES CONSULTANT) P athologist Signature Potassium, S 4.8 3.6 - 5.2 09/13/2020 [facility] mmol/L 9:10 AM RESIDENTIAL SALES CONSULTANT Sodium, S 141 135 - 145 09/13/2020 [facility] mmol/L 9:10 AM RESIDENTIAL SALES CONSULTANT Chloride, S 106 98 - 107 09/13/2020 [facility] mmol/L 9:10 AM RESIDENTIAL SALES CONSULTANT Bicarbonate, S 24 22 - 29 09/13/2020 [facility] mmol/L 9:10 AM RESIDENTIAL SALES CONSULTANT Anion Gap 11 7 - 15 09/13/2020 [facility] 9:10 AM RESIDENTIAL SALES CONSULTANT BUN (Blood Urea 24 (H) 6 - 21 09/13/2020 [facility] Nitrogen), S mg/dL 9:10 AM RESIDENTIAL SALES CONSULTANT Creatinine 0.98 0.59 - 09/13/2020 [facility] 1.04 mg/dL 9:10 AM RESIDENTIAL SALES CONSULTANT eGFR-Non 67 >=60 09/13/2020 [facility] Black/ mL/min/BSA 9:10 AM RESIDENTIAL SALES CONSULTANT [place] Comment: ----ADDITIONAL INFORMATION---- Estimated GFR calculated using the 2009 CKD_EPI creatinine equation. eGFR-Black/ 77 >=60 mL/min/BSA 2020 9:10 AM RESIDENTIAL SALES CONSULTANT [facility] Comment: ----ADDITIONAL INFORMATION---- Estimated GFR calculated using the 2009 CKD_EPI creatinine equation. Calcium, Total, S 8.6 8.6 - 10.0 mg/dL 09/13/2020 9:10 AM RESIDENTIAL SALES CONSULTANT [facility] Glucose, S 111 70 - 140 mg/dL 09/13/2020 9:10 AM RESIDENTIAL SALES CONSULTANT D TL Protein, Total, S 6.1 (L) 6.3 - 7.9 g/dL 09/13/2020 9:10 A M RESIDENTIAL SALES CONSULTANT [facility] Albumin, S 4.2 3.5 - 5.0 g/dL 09/13/2020 9:10 AM RESIDENTIAL SALES CONSULTANT D TL Aspartate Aminotransferase 28 8 - 43 U/L 09/13/2020 9 :10 AM RESIDENTIAL SALES CONSULTANT DTL (AST), S Alkaline Phosphatase, S 42 35 - 104 U/L 09/13/2020 9: 10 AM RESIDENTIAL SALES CONSULTANT DTL Alanine Aminotransferase 16 7 - 45 U/L 09/13/2020 9:1 0 AM RESIDENTIAL SALES CONSULTANT DTL (ALT), S Bilirubin, Total, S 0.8 <=1.2 mg/dL 09/13/2020 9:10 AM RESIDENTIAL SALES CONSULTANT DTL Specimen Anatomical Collection Method Collection Time Receive d Time (Source) Location / / Volume Laterality Blood (Blood, 09/13/2020 8:10 AM 09/14/19 21 8:34 Venous) RESIDENTIAL SALES CONSULTANT AM RESIDENTIAL SALES CONSULTANT Janusz AlexandraSZahraa LAB BLOOD ADD-ON Performing Organization Address City/State/ZIP Code Phon e Number [facility] - [address] [place] [address] [facility] [place] [address] [facility] 200 [facility] (ABNORMAL) CBC with Differential, Blood (09/13/2020 8:10 AM RESIDENTIAL SALES CONSULTANT) [facility] gist Method Time Signature Hemoglobin 6.5 (L) 11.6 - 09/13/2020 [facility] 15.0 g/dL 9:02 AM RESIDENTIAL SALES CONSULTANT Hematocrit 22.1 (L) 35.5 - 09/13/2020 [facility] 44.9 % 9:02 AM RESIDENTIAL SALES CONSULTANT Erythrocytes 2.35 (L) 3.92 - 09/13/2020 [facility] 5.13 9:02 AM RESIDENTIAL SALES CONSULTANT x10(12)/L MCV 94.0 78.2 - 09/13/2020 [facility] 97.9 fL 9:02 AM RESIDENTIAL SALES CONSULTANT RBC Distrib Width 28.7 (H) 12.2 - 09/13/2020 [facility] 16.1 % 10:28 AM RESIDENTIAL SALES CONSULTANT Platelet Count 80 (L) 157 - 371 09/13/2020 [facility] x10(9)/L 10:28 AM RESIDENTIAL SALES CONSULTANT Comment: Results confirmed by smear, no clumping or interference seen. Leukocytes 3.1 (L) 3.4 - 9.6 x10(9)/L 09/13/2020 10:28 AM RESIDENTIAL SALES CONSULTANT DTL Comment: Results confirmed by smear. Neutrophils SeeComment 1.56 - 6.45 x10(9)/L 09/13/2020 10:28 AM RESIDENTIAL SALES CONSULTANT [facility]TL Comment: Auto-diff results not valid. Se e manual differential. Specimen Anatomical Collection Method Collection Time Receive d Time (Source) Location / / Volume Laterality Blood (Blood, 09/13/2020 8:10 AM 09/14/19 21 8:37 Venous) RESIDENTIAL SALES CONSULTANT AM RESIDENTIAL SALES CONSULTANT Janusz AlexandraSZahraa LAB BLOOD ADD-ON Performing Organization Address City/State/ZIP Code Phon e Number [facility] - [address] [place], [place] [address] [facility] [place] [address] Laboratories[facility] [address] documented in this encounter Visit Diagnoses Diagnosis Myelofibrosis (HCC) documented in this encounter
--- OUTSIDE RECORDS SUMMARY | 2022-05-02 12:34 | XMS_ITS | Encounter Summary ---
:1970 Author Organization [facility] Address [address] [place] [address] Care Team Providers Name Role Phone Unavailable Primary Care Provider Unavailable Reason for Visit Reason Comments Med Refill Encounter Details Date Type Department Care Team Description 10/27/2020 Refill Division of Hematology in [facility] Med Refill [place], [place] M.B.B.S. 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
--- OUTSIDE RECORDS SUMMARY | 2022-05-02 12:34 | XMS_ITS | Encounter Summary ---
:1970 Author Organization [facility] Address [address] [place] [address] Care Team Providers Name Role Phone Unavailable Primary Care Provider Unavailable Reason for Visit Reason Comments Labs Only Encounter Details Date Type Department Care Team Description 08/18/2020 Clinical Communication Division of Hematology Janusz Govea, Labs Only in [facility] milton ArringtonB.S. 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 - 08/18/2020 9:12 AM CST Left a message for Jennifer to call me back. Hgb 7.3. she can forego RBCs this morning if she would like. TIONSHIP BANKER documented in 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
--- OUTSIDE RECORDS SUMMARY | 2022-05-02 12:34 | XMS_ITS | Encounter Summary ---
:1970 Author Organization [facility] Address [address] [place] [address] Care Team Providers Name Role Phone Unavailable Primary Care Provider Unavailable Encounter Details Date Type Department Care Team Description 08/04/2020 Hospital Encounter Department of Gangat, Myelofib rosis ([facility]) Laboratory Medicine [facility], and Pathology, 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 CBC WITH Routine 08/04/2020 10:17 Myelofibrosis (HCC) Resu lts for this DIFFERENTIAL, B AM ROUTE SALES TRAINEE procedure ar e in the results section. TYPE AND SCREEN Routine 08/04/2020 10:17 Myelofibrosis (HCC) R esults for this AM ROUTE SALES TRAINEE procedure are i n the results section. documented in this encounter Results (ABNORMAL) Morphology Evaluation (Special Smear) (08/04/2020 10:17 AM ROUTE SALES TRAINEE) [facility] Method Time Signature Neutrophilic Segs 81 (H) 50 - 75 % 08/04/2020 DHPM and Bands 11:50 AM ROUTE SALES TRAINEE Lymphocytes 7 (L) 18 - 42 % 08/04/2020 DHPM 11:50 AM ROUTE SALES TRAINEE Monocytes 3 2 - 11 % 08/04/2020 DHPM 11:50 AM ROUTE SALES TRAINEE Eosinophils 1 1 - 3 % 08/04/2020 DHPM 11:50 AM ROUTE SALES TRAINEE Metamyelocytes 5 (H) <1 % 08/04/2020 DHPM 11:50 AM ROUTE SALES TRAINEE Myelocytes 3 (H) <0.5 % 08/04/2020 DHPM 11:50 AM ROUTE SALES TRAINEE Nucleated RBC 8 /100 WBC 08/04/2020 DHPM 11:50 AM ROUTE SALES TRAINEE Manual Absolute 2.03 1.56 - 08/04/2020 DHPM Neutrophil Count 6.45 11:50 AM ROUTE SALES TRAINEE x10(9)/L Comment: ----ADDITIONAL INFORMATION---- The manual absolute neutrophil count is derived from a manual differential count and therefore is not exactly comparable to the automated absolute halie trophil count. Specimen Anatomical Collection Method Collection Time Receive d Time (Source) Location / / Volume Laterality Blood 08/04/2020 10:17 08/04/2020 AM ROUTE SALES TRAINEE 10:40 AM ROUTE SALES TRAINEE Janusz ArringtonB.SZahraa LAB BLOOD ADD-ON Performing Organization Address [facility] [place] [facility] Phon e Number [facility] - [address] [place], [place] [address] [place] [address] [address] Type and Screen (with reflex Antibody ID) (08/04/2020 10:17 AM ROUTE SALES TRAINEE) [facility] Equipboard Method Time Signature ABORh A Pos Not 08/04/2020 ETRM applicable 11:23 AM ROUTE SALES TRAINEE Antibody Negative Negative 08/04/2020 ETRM Screen 11:36 AM ROUTE SALES TRAINEE Type & Screen 08/07/2020 08/04/2020 ETRM Expiration 23:59 11:23 AM ROUTE SALES TRAINEE Testing Deidra DEFAULT 08/04/2020 ETRM Location 10:45 AM ROUTE SALES TRAINEE Specimen Anatomical Collection Method Collection Time Receive d Time (Source) Location / / Volume Laterality Blood (Blood, 08/04/2020 10:17 08/04/2020 Venous) AM ROUTE SALES TRAINEE 10:45 AM ROUTE SALES TRAINEE Janusz ArringtonBZahraaSZahraa LAB BLOOD BANK TEST ORDERABL ES Performing Organization Address [facility] Phon e Number [facility] - [address] [place], [place] [address] [facility] [place] [address] [address] (ABNORMAL) CBC with Differential, Blood (08/04/2020 10:17 AM ROUTE SALES TRAINEE) [facility] Equ[employer] Method Time Signature Hemoglobin 6.8 (L) 11.6 - 08/04/2020 DTL 15.0 g/dL 10:46 AM ROUTE SALES TRAINEE Hematocrit 23.1 (L) 35.5 - 08/04/2020 DTL 44.9 % 10:46 AM ROUTE SALES TRAINEE Erythrocytes 2.52 (L) 3.92 - 08/04/2020 DTL 5.13 10:46 AM ROUTE SALES TRAINEE x10(12)/L MCV 91.7 78.2 - 08/04/2020 DTL 97.9 fL 10:46 AM ROUTE SALES TRAINEE RBC Distrib Width 24.5 (H) 12.2 - 08/04/2020 DTL 16.1 % 10:46 AM ROUTE SALES TRAINEE Platelet Count 74 (L) 157 - 371 08/04/2020 DTL x10(9)/L 10:46 AM ROUTE SALES TRAINEE Leukocytes 2.5 (L) 3.4 - 9.6 08/04/2020 DTL x10(9)/L 11:49 AM ROUTE SALES TRAINEE Comment: Results confirmed by smear. Neutrophils SeeComment 1.56 - 6.45 x10(9)/L 08/04/2020 11:49 AM ROUTE SALES TRAINEE DTL Comment: Auto-diff results not valid. Se e manual differential. Specimen Anatomical Collection Method Collection Time Receive d Time (Source) Location / / Volume Laterality Blood (Blood, 08/04/2020 10:17 08/04/2020 Venous) AM ROUTE SALES TRAINEE 10:40 AM ROUTE SALES TRAINEE Janusz Ardon LAB BLOOD ADD-ON Performing Organization Address City/State/ZIP Code Phon e Number [facility] - [address] [place], [place] [address] [facility] [place] [place] [address] Laboratories-[facility] [address] documented in this encounter Visit Diagnoses Diagnosis Myelofibrosis (HCC) documented in this encounter
--- OUTSIDE RECORDS SUMMARY | 2022-05-02 12:34 | XMS_ITS | Encounter Summary ---
:[address] [facility] Address [address] [place] [address] Care Team Providers Name Role Phone Unavailable Primary Care Provider Unavailable Reason for Visit Episode Based Medications (Routine) - Closed Specialty Diagnoses / Procedures Referred By Contact Refer red To Contact Medical Oncology / Diagnoses Myelofibrosis (HCC) Janusz Govea Rst Inf Onc Rogo Oncology Procedures ONCBCN INFUSION APPOINTMENT REQUEST 09 ONC THER INF M.B.B.S. [address] [place] [address] [place] [phone] Referral ID Status Reason Start Date Expiration Date Visits Requ ested Visits Authorized [id number] Closed 06/06/2020 06/20/2021 99 30 Encounter Details Date Type Department Care Team Description 08/04/2020 Infusion Department of Oncology Janusz Govea M yelofibrosis (HCC) in [facility] M.B.B.S. 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 documented as of this encounter Last Filed Vital Signs Vital Sign Reading Time Taken Comments Blood Pressure 142/67 08/04/2020 2:11 PM DOOR TO DOOR FUNDRAISING COLLECTOR Pulse 92 08/04/2020 2:11 PM DOOR TO DOOR FUNDRAISING COLLECTOR Temperature 36.4 ??C (97.5 ??F) 08/04/2020 2:11 PM DOOR TO DOOR FUNDRAISING COLLECTOR Respiratory Rate 20 08/04/2020 2:11 PM DOOR TO DOOR FUNDRAISING COLLECTOR Oxygen Saturation - - Inhaled Oxygen Concentration - - Weight 97 kg (213 lb 11.8 oz) 08/04/2020 10:48 AM DOOR TO DOOR FUNDRAISING COLLECTOR Height - - Body Mass Index 33.78 08/01/2020 10:37 AM DOOR TO DOOR FUNDRAISING COLLECTOR documented in 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 Administered Medications Inactive Administered Medications - up to 3 most recent administrations Medication Order MAR Action Action Date Dose Rate Site Research IRB [id number] New Bag 08/04/2020 12:00 PM DOOR TO DOOR FUNDRAISING COLLECTOR 1,130 mg 557 mL/hr 9-ING-41 1,130 mg [...] injection 30 mL Given 08/04/2020 2:07 PM DOOR TO DOOR FUNDRAISING COLLECTOR 30 mL 30 mL, intravenous, Once, On Fri08/04/20 at 1100, For 1 dose, Post chemotherapy flush documented in this encounter
--- OUTSIDE RECORDS SUMMARY | 2022-05-02 12:34 | XMS_ITS | Encounter Summary ---
:1970 Author Organization [facility] Address [address] [place] [address] Care Team Providers Name Role Phone Unavailable Primary Care Provider Unavailable Reason for Visit Appointment Request (Routine) - Closed Specialty Diagnoses / Procedures Referred By Contact Refer red To Contact Hematology Referral ID Status Reason Start Date Expiration Date Visits Requ ested Visits Authorized [id number] Closed 08/11/2020 08/11/2021 1 1 Encounter Details Date Type Department Care Team Description 08/11/2020 Office Visit Division of Hematology Xuan Myelo fibrosis (HCC) in [facility], (Primary Dx) [place] Ronaldo.B.S. 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 She has decided to come off [...] month Reva Foreman CT CT Job ID: [id number] K REPAIRER documented in 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
--- OUTSIDE RECORDS SUMMARY | 2022-05-02 12:35 | XMS_ITS | Encounter Summary ---
:1970 Author Organization [facility] Address [address] [place] [address] Care Team Providers Name Role Phone Unavailable Primary Care Provider Unavailable Encounter Details Date Type Department Care Team Description 07/10/2020 Lab Department of Infusion Sasha Govea M.B.BZahraaS. 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
--- OUTSIDE RECORDS SUMMARY | 2022-05-02 12:35 | XMS_ITS | Encounter Summary ---
:1970 Author Organization [facility] Address [address] [place] [address] Care Team Providers Name Role Phone Unavailable Primary Care Provider Unavailable Encounter Details Date Type Department Care Team Description 07/13/2020 Clinical Communication Division of Hematology Janusz Govea, in [facility] MurphyB.S. 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 - 07/13/2020 2:28 PM CONCRETE BLOCK MOLDER I spoke to patient and spouse who [...] seek care emergently. I called Sarah at [facility] and she said they are setting patient up for transfusion that day at 4:30pm. RETE BLOCK MOLDER documented in 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
--- OUTSIDE RECORDS SUMMARY | 2022-05-02 12:35 | XMS_ITS | Encounter Summary ---
:1970 Author Organization [facility] Address [address] [place] [address] Care Team Providers Name Role Phone Unavailable Primary Care Provider Unavailable Reason for Referral Specialty Diagnoses / Procedures Referred By Contact Refer red To Contact Janusz Govea M.B .B.S. [address] [phone] Referral ID Status Reason Start Date Expiration Date Visits Requ ested Visits Authorized Scheduling Instructions Per Dr. Govea, schedule blood transfusi on every Friday and cancel if not needed. She will have chemo,cbc and tasr those days. Pt. Is noncompliant going to transfusions if they are not scheduled ahead of time. PERSON Encounter Details Date Type Department Care Team Description 07/18/2020 Clinical Communication Division of Hematology Janusz Govea, in [facility] NasrinS. 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 - 07/18/2020 9:19 AM PREP PERSON I can pre schedule the transfusions. I [...] be okk with it in this case. PERSON Telephone Encounter - Mary Ann Shaver R.N. - 07/18/2020 9:19 AM PREP PERSON ----- Message from Reva Foreman sent at 07/17/2020 1:26 PM PREP PERSON ----- Regarding: RE: Blood Transfusions We can pre-schedule the transfusions to ensure she receives them. Bre/deejay please help. Thanks. ----- Message ----- From: Krzysztof Pearce Sent: 07/17/2020 1:13 PM PREP PERSON To: Reva Foreman, # Subject: Blood Transfusions Hi, the patient informed me that there's usually an issue when she's due a blood transfusion. She apparently needs them every 2 weeks but they're rarely scheduled or she has to skip it. Is there anything we can do to fix this? Thanks PERSON documented in this encounter Plan of Treatment Scheduled Referrals Name Type Priority Associated Diagnoses Order S chedule Blood Administration Outpatient Routine Myelofibrosis (HCC) weekly for 12 in Infusion Therapy; Referral Occurre nces starting 07/18/2020 unti l 07/18/2023 documented as of this encounter Visit Diagnoses Diagnosis Myelofibrosis (HCC) - Primary documented in this encounter
--- OUTSIDE RECORDS SUMMARY | 2022-05-02 12:35 | XMS_ITS | Encounter Summary ---
:1970 Author Organization [facility] Address [address] [place] [address] Care Team Providers Name Role Phone Unavailable Primary Care Provider Unavailable Encounter Details Date Type Department Care Team Description 07/18/2020 Orders Only Department of Oncology in Leann Pearce R.N. 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
--- OUTSIDE RECORDS SUMMARY | 2022-05-02 12:35 | XMS_ITS | Encounter Summary ---
:1970 Author Organization [facility] Address [address] [place] [address] Care Team Providers Name Role Phone Unavailable Primary Care Provider Unavailable Encounter Details Date Type Department Care Team Description 07/10/2020 Hospital Encounter Department of Gangat, Myelofib rosis ([facility]) Laboratory Medicine [facility], and Pathology, [facility], in [address] [place] [phone] [place], [place] [phone] (Work) [phone] Social History Tobacco Use Types Packs/Day Years Used Date Smoking Tobacco: Former Smokeless Tobacco: Never Sex Assigned at Date Recorded Female 07/24/2021 11:03 AM 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 CBC WITH DIFFERENTIAL, B Routine 07/10/2020 6:47 Myelofibrosis (HCC) Results for this AM SPACE SCHEDULER procedure are i n the results section. TYPE AND SCREEN Routine 07/10/2020 6:47 Myelofibrosis (HCC) Re sults for this AM SPACE SCHEDULER procedure are i n the results section. URIC ACID, S/P Routine 07/10/2020 6:47 Myelofibrosis (HCC) Res ults for this AM SPACE SCHEDULER procedure are i n the results section. BUN (BLOOD UREA Routine 07/10/2020 6:47 Myelofibrosis (HCC) Re sults for this NITROGEN), S/P AM SPACE SCHEDULER procedure are in the results section. ALANINE AMINOTRANSFERASE Routine 07/10/2020 6:47 Myelofibrosis (HCC) Results for this (ALT), S/P AM SPACE SCHEDULER procedure are i n the results section. ASPARTATE Routine 07/10/2020 6:47 Myelofibrosis (HCC) Resul ts for this AMINOTRANSFERASE (AST), AM SPACE SCHEDULER proc edure are in S/P the results section. SODIUM, S/P Routine 07/10/2020 6:47 Myelofibrosis (HCC) Resul ts for this AM SPACE SCHEDULER procedure are i n the results section. PROTEIN, TOTAL, S/P Routine 07/10/2020 6:47 Myelofibrosis (HCC ) Results for this AM SPACE SCHEDULER procedure are i n the results section. POTASSIUM, S/P Routine 07/10/2020 6:47 Myelofibrosis (HCC) Res ults for this AM SPACE SCHEDULER procedure are i n the results section. ALKALINE PHOSPHATASE, Routine 07/10/2020 6:47 Myelofibrosis (H CC) Results for this S/P AM SPACE SCHEDULER procedure are i n the results section. MAGNESIUM, S Routine 07/10/2020 6:47 Myelofibrosis (HCC) Resul ts for this AM SPACE SCHEDULER procedure are i n the results section. GLUCOSE, RANDOM, S/P Routine 07/10/2020 6:47 Myelofibrosis (HC C) Results for this AM SPACE SCHEDULER procedure are i n the results section. CREATININE WITH EGFR, Routine 07/10/2020 6:47 Myelofibrosis (H CC) Results for this S/P AM SPACE SCHEDULER procedure are i n the results section. CHLORIDE, S/P Routine 07/10/2020 6:47 Myelofibrosis (HCC) Resu lts for this AM SPACE SCHEDULER procedure are i n the results section. CALCIUM, TOT, S/P Routine 07/10/2020 6:47 Myelofibrosis (HCC) Results for this AM SPACE SCHEDULER procedure are i n the results section. BILIRUBIN, TOT, S/P Routine 07/10/2020 6:47 Myelofibrosis (HCC ) Results for this AM SPACE SCHEDULER procedure are i n the results section. ALBUMIN, S/P Routine 07/10/2020 6:47 Myelofibrosis (HCC) Resul ts for this AM SPACE SCHEDULER procedure are i n the results section. documented in this encounter Results (ABNORMAL) Morphology Evaluation (Special Smear) (07/10/2020 6:47 AM SPACE SCHEDULER) [facility] gist Method Time Signature Neutrophilic Segs 86 (H) 50 - 75 % 07/10/2020 DHPM and Bands 8:05 AM SPACE SCHEDULER Lymphocytes 6 (L) 18 - 42 % 07/10/2020 DHPM 8:05 AM SPACE SCHEDULER Monocytes 5 2 - 11 % 07/10/2020 DHPM 8:05 AM SPACE SCHEDULER Basophils 1 0 - 2 % 07/10/2020 DHPM 8:05 AM SPACE SCHEDULER Metamyelocytes 1 (H) <1 % 07/10/2020 DHPM 8:05 AM SPACE SCHEDULER Myelocytes 1 (H) <0.5 % 07/10/2020 DHPM 8:05 AM SPACE SCHEDULER Nucleated RBC 1 /100 WBC 07/10/2020 DHPM 8:05 AM SPACE SCHEDULER Manual Absolute 3.10 1.56 - 07/10/2020 DHPM Neutrophil Count 6.45 8:05 AM SPACE SCHEDULER x10(9)/L Comment: ----ADDITIONAL INFORMATION---- The manual absolute neutrophil count is derived from a manual differential count and therefore is not exactly comparable to the automated absolute halie trophil count. Specimen Anatomical Collection Method Collection Time Receive d Time (Source) Location / / Volume Laterality Blood 07/10/2020 6:47 AM 0 7:12 SPACE SCHEDULER AM SPACE SCHEDULER Janusz ArringtonB.S. LAB BLOOD ADD-ON Performing Organization Address [facility] Phon e Number [facility] - 200 [place], [place] [address] [place] [address] Type and Screen (with reflex Antibody ID) (07/10/2020 6:47 AM SPACE SCHEDULER) Patholo gist Method Time Signature ABORh A Pos Not 07/10/2020 ETRM applicable 9:56 AM SPACE SCHEDULER Antibody Negative Negative 07/10/2020 ETRM Screen 9:13 AM SPACE SCHEDULER Type & Screen 07/13/2020 07/10/2020 ETRM Expiration 23:59 9:13 AM SPACE SCHEDULER Testing Ada DEFAULT 07/10/2020 ETRM Location 8:25 AM SPACE SCHEDULER Specimen Anatomical Collection Method Collection Time Receive d Time (Source) Location / / Volume Laterality Blood (Blood, 07/10/2020 6:47 AM 07/10/20 20 8:25 Venous) SPACE SCHEDULER AM SPACE SCHEDULER Janusz ArringtonB.S. LAB BLOOD BANK TEST ORDERABL ES Performing Organization Address [facility] Phon e Number [facility] - 200 [place], [place] [address] [facility] [place] [address] (ABNORMAL) Protein, Total (07/10/2020 6:47 AM SPACE SCHEDULER) P athologist Signature Protein, 6.2 (L) 6.3 - 7.9 07/10/2020 DTL Total, S g/dL 7:51 AM SPACE SCHEDULER Specimen Anatomical Collection Method Collection Time Receive d Time (Source) Location / / Volume Laterality Blood (Blood, 07/10/2020 6:47 AM 07/10/20 20 7:10 Venous) SPACE SCHEDULER AM SPACE SCHEDULER Janusz ArringtonB.S. LAB BLOOD ADD-ON Performing Organization Address City/[facility]/ZIP [facility] Phon e Number [facility] - [address] Albumin (07/10/2020 6:47 AM SPACE SCHEDULER) athologist Signature Albumin, S 4.4 3.5 - 5.0 07/10/2020 DTL g/dL 7:51 AM SPACE SCHEDULER Specimen Anatomical Collection Method Collection Time Receive d Time (Source) Location / / Volume Laterality Blood (Blood, 07/10/2020 6:47 AM 07/10/20 7:10 Venous) SPACE SCHEDULER AM SPACE SCHEDULER Janusz Dillon.Cain.B.S. LAB BLOOD ADD-ON Performing Organization Address City/[facility] Phon e Number [facility] - [address] Glucose, Random (07/10/2020 6:47 AM SPACE SCHEDULER) athologist Signature Glucose, S 135 70 - 140 07/10/2020 DTL mg/dL 7:51 AM SPACE SCHEDULER Specimen Anatomical Collection Method Collection Time Receive d Time (Source) Location / / Volume Laterality Blood (Blood, 07/10/2020 6:47 AM 07/10/20 20 7:10 Venous) SPACE SCHEDULER AM SPACE SCHEDULER Janusz Dillon.Cain.B.S. LAB BLOOD TROPONIN Performing Organization Address City/[facility]/ZIP [facility] Phon e Number [facility] - [address] Uric Acid (07/10/2020 6:47 AM SPACE SCHEDULER) athologist Signature Uric Acid, S 5.0 2.7 - 6.1 07/10/2020 DTL mg/dL 7:51 AM SPACE SCHEDULER Specimen Anatomical Collection Method Collection Time Receive d Time (Source) Location / / Volume Laterality Blood (Blood, 07/10/2020 6:47 AM 07/10/20 7:10 Venous) SPACE SCHEDULER AM SPACE SCHEDULER Nasbaltazarma Xuan Dillon.B.B.S. LAB BLOOD ADD-ON Performing Organization Address City/State/ZIP Code Phon e Number [facility] - [address] (ABNORMAL) Creatinine with Estimated GFR (07/10/2020 6:47 AM SPACE SCHEDULER) Analysis Performed At Patho logist Time Signature Creatinine 1.08 (H) 0.59 - 07/10/2020 DTL 1.04 mg/dL 7:51 AM SPACE SCHEDULER eGFR-Non 59 (L) >=60 07/10/2020 DTL Black/ mL/min/BSA 7:51 AM SPACE SCHEDULER Monegasque Comment: ----ADDITIONAL INFORMATION---- Estimated GFR calculated using the 2009 CKD_EPI creatinine equation. eGFR-Black/ 68 >=60 mL/min/BSA 2019 7:51 AM SPACE SCHEDULER DTL Comment: ----ADDITIONAL INFORMATION---- Estimated GFR calculated using the 2009 CKD_EPI creatinine equation. Specimen Anatomical Collection Method Collection Time Receive d Time (Source) Location / / Volume Laterality Blood (Blood, 07/10/2020 6:47 AM 07/10/20 20 7:10 Venous) SPACE SCHEDULER AM SPACE SCHEDULER Janusz AlexandraSZahraa LAB BLOOD ADD-ON Performing Organization Address City/[facility]/ZIP Code Phon e Number [facility] - [address] [address] [address] (ABNORMAL) BUN (Blood Urea Nitrogen) (07/10/2020 6:47 AM SPACE SCHEDULER) P athologist Signature BUN (Blood Urea 24 (H) 6 - 21 07/10/2020 DTL Nitrogen), S mg/dL 7:51 AM SPACE SCHEDULER Specimen Anatomical Collection Method Collection Time Receive d Time (Source) Location / / Volume Laterality Blood (Blood, 07/10/2020 6:47 AM 07/10/20 20 7:10 Venous) SPACE SCHEDULER AM SPACE SCHEDULER Janusz ArringtonB.S. LAB BLOOD ADD-ON Performing Organization Address City/[facility]/ZIP Code Phon e Number [facility] - [address] [place] [address] [facility] [address] Bilirubin, Total (07/10/2020 6:47 AM SPACE SCHEDULER) P athologist Signature Bilirubin, 0.8 <=1.2 mg/dL 07/10/2020 DTL Total, S 7:51 AM SPACE SCHEDULER Specimen Anatomical Collection Method Collection Time Receive d Time (Source) Location / / Volume Laterality Blood (Blood, 07/10/2020 6:47 AM 07/10/20 20 7:10 Venous) SPACE SCHEDULER AM SPACE SCHEDULER Naseema Gangat M.B.B.S. LAB BLOOD ADD-ON Performing Organization Address City/[facility]/ZIP Code Phon e Number [facility] 200 [place], [place] [address] [place] [address] [facility] [address] [facility] Calcium, Total (07/10/2020 6:47 AM SPACE SCHEDULER) athologist Signature Calcium, Total, 8.7 8.6 - 10.0 07/10/2020 DTL S mg/dL 7:51 AM SPACE SCHEDULER Specimen Anatomical Collection Method Collection Time Receive d Time (Source) Location / / Volume Laterality Blood (Blood, 07/10/2020 6:47 AM 07/10/20 20 7:10 Venous) SPACE SCHEDULER AM SPACE SCHEDULER Naseema Gangat M.B.B.S. LAB BLOOD ADD-ON Performing Organization Address City/[facility]/ZIP Code Phon e Number [facility] 200 [place], [place] [address] [place] [address] [place] [address] [address] [facility] Chloride (07/10/2020 6:47 AM SPACE SCHEDULER) P athologist Signature Chloride, S 105 98 - 107 07/10/2020 DTL mmol/L 7:51 AM SPACE SCHEDULER Specimen Anatomical Collection Method Collection Time Receive d Time (Source) Location / / Volume Laterality Blood (Blood, 07/10/2020 6:47 AM 07/10/20 20 7:10 Venous) SPACE SCHEDULER AM SPACE SCHEDULER Naseema Gangat M.B.B.S. LAB BLOOD ADD-ON Performing Organization Address City/State/ZIP Code Phon e Number [facility] - [address] Magnesium (07/10/2020 6:47 AM SPACE SCHEDULER) athologist Signature Magnesium, S 2.2 1.7 - 2.3 07/10/2020 DTL mg/dL 7:51 AM SPACE SCHEDULER Specimen Anatomical Collection Method Collection Time Receive d Time (Source) Location / / Volume Laterality Blood (Blood, 07/10/2020 6:47 AM 07/10/20 20 7:10 Venous) SPACE SCHEDULER AM SPACE SCHEDULER Naseema Gangat M.B.B.S. LAB BLOOD ADD-ON Performing Organization Address City/State/ZIP Code Phon e Number [facility] [id number] [place] [address] Potassium (07/10/2020 6:47 AM SPACE SCHEDULER) athologist Signature Potassium, S 4.3 3.6 - 5.2 07/10/2020 DTL mmol/L 7:51 AM SPACE SCHEDULER Specimen Anatomical Collection Method Collection Time Receive d Time (Source) Location / / Volume Laterality Blood (Blood, 07/10/2020 6:47 AM 07/10/20 20 7:10 Venous) SPACE SCHEDULER AM SPACE SCHEDULER Naseema Gangat M.B.B.S. LAB BLOOD ADD-ON Performing Organization Address City/State/ZIP Code Phon e Number [facility] [address] Sodium (07/10/2020 6:47 AM SPACE SCHEDULER) athologist Signature Sodium, S 141 135 - 145 07/10/2020 7:51 DTL mmol/L AM SPACE SCHEDULER Specimen Anatomical Collection Method Collection Time Receive d Time (Source) Location / / Volume Laterality Blood (Blood, 07/10/2020 6:47 AM 07/10/20 20 7:10 Venous) SPACE SCHEDULER AM SPACE SCHEDULER Naseema Gangat M.B.B.S. LAB BLOOD ADD-ON Performing Organization Address City/State/ZIP Code Phon e Number [facility] 200 [place], [place] [address] [place] [address] [facility] 200 [facility] Alkaline Phosphatase (07/10/2020 6:47 AM SPACE SCHEDULER) P athologist Signature Alkaline 49 35 - 104 07/10/2020 DTL Phosphatase, S U/L 7:51 AM SPACE SCHEDULER Specimen Anatomical Collection Method Collection Time Receive d Time (Source) Location / / Volume Laterality Blood (Blood, 07/10/2020 6:47 AM 07/10/20 20 7:10 Venous) SPACE SCHEDULER AM SPACE SCHEDULER Janusz Dillon.B.B.S. LAB BLOOD ADD-ON Performing Organization Address City/State/ZIP Code Phon e Number [facility] - 200 [place], [place] [address] [place] [address] AST (Aspartate Aminotransferase) (07/10/2020 6:47 AM SPACE SCHEDULER) Patholo gist Method Time Signature Aspartate 30 8 - 43 07/10/2020 DTL Aminotransferase U/L 7:51 AM SPACE SCHEDULER (AST), S Specimen Anatomical Collection Method Collection Time Receive d Time (Source) Location / / Volume Laterality Blood (Blood, 07/10/2020 6:47 AM 07/10/20 7:10 Venous) SPACE SCHEDULER AM SPACE SCHEDULER Janusz Dillon.B.B.S. LAB BLOOD ADD-ON Performing Organization Address City/State/ZIP Code Phon e Number [facility] - 200 [place], [place] [address] [place] [address] ALT (Alanine Aminotransferase) (07/10/2020 6:47 AM SPACE SCHEDULER) Patholo gist Method Time Signature Alanine 12 7 - 45 07/10/2020 DTL Aminotransferase U/L 7:51 AM SPACE SCHEDULER (ALT), S Specimen Anatomical Collection Method Collection Time Receive d Time (Source) Location / / Volume Laterality Blood (Blood, 07/10/2020 6:47 AM 07/10/20 20 7:10 Venous) SPACE SCHEDULER AM SPACE SCHEDULER Nasjonathan Govea M.B.B.S. LAB BLOOD ADD-ON Performing Organization Address City/State/ZIP Code Phon e Number [facility] - [address] [place] [address] [address] (ABNORMAL) CBC with Differential, Blood (07/10/2020 6:47 AM SPACE SCHEDULER) [facility] gist Method Time Signature Hemoglobin 6.8 (L) 11.6 - 07/10/2020 DTL 15.0 g/dL 7:22 AM SPACE SCHEDULER Hematocrit 22.1 (L) 35.5 - 07/10/2020 DTL 44.9 % 7:22 AM SPACE SCHEDULER Erythrocytes 2.51 (L) 3.92 - 07/10/2020 DTL 5.13 7:22 AM SPACE SCHEDULER x10(12)/L MCV 88.0 78.2 - 07/10/2020 DTL 97.9 fL 7:22 AM SPACE SCHEDULER RBC Distrib 25.8 (H) 12.2 - 07/10/2020 DTL Width 16.1 % 7:22 AM SPACE SCHEDULER Platelet Count 119 (L) 157 - 371 07/10/2020 DTL x10(9)/L 7:22 AM SPACE SCHEDULER Leukocytes 3.6 3.4 - 9.6 07/10/2020 DTL x10(9)/L 8:05 AM SPACE SCHEDULER Neutrophils SeeComment 1.56 - 07/10/2020 DTL 6.45 8:05 AM SPACE SCHEDULER x10(9)/L Comment: Auto-diff results not valid. Se e manual differential. Specimen Anatomical Collection Method Collection Time Receive d Time (Source) Location / / Volume Laterality Blood (Blood, 07/10/2020 6:47 AM 07/10/20 20 7:12 Venous) SPACE SCHEDULER AM SPACE SCHEDULER Janusz Ardon LAB BLOOD ADD-ON Performing Organization Address City/[facility] Phon e Number [facility] - [address] [address] [facility]-[address] documented in this encounter Visit Diagnoses Diagnosis Myelofibrosis (HCC) documented in this encounter
--- OUTSIDE RECORDS SUMMARY | 2022-05-02 12:35 | XMS_ITS | Encounter Summary ---
:[address] 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
--- OUTSIDE RECORDS SUMMARY | 2022-05-02 12:35 | XMS_ITS | Encounter Summary ---
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
--- OUTSIDE RECORDS SUMMARY | 2022-05-02 12:35 | XMS_ITS | Encounter Summary ---
:1970 Author Organization [facility] Address [address] [place] [address] Care Team Providers Name Role Phone Unavailable Primary Care Provider Unavailable Reason for Visit Episode Based Medications (Routine) - Closed Specialty Diagnoses / Procedures Referred By Contact Refer red To Contact Medical Oncology / Diagnoses Myelofibrosis (HCC) Janusz Govea [facility] Procedures ONCBCN INFUSION APPOINTMENT REQUEST 09 ONC THER INF M.B.B.S. [address] [place] [address] [place] [phone] Referral ID Status Reason Start Date Expiration Date Visits Requ ested Visits Authorized [id number] Closed 06/06/2020 06/20/2021 99 30 Encounter Details Date Type Department Care Team Description 07/20/2020 Infusion Department of Oncology Janusz Govea M yelofibrosis (HCC) in [facility] M.B.B.S. 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 documented as of this encounter Last Filed Vital Signs Vital Sign Reading Time Taken Comments Blood Pressure 124/65 07/20/2020 3:26 PM PLACEMENT COORDINATOR Pulse 103 07/20/2020 3:26 PM PLACEMENT COORDINATOR Temperature 36.5 ??C (97.7 ??F) 07/20/2020 3:26 PM PLACEMENT COORDINATOR Respiratory Rate 20 07/20/2020 3:26 PM PLACEMENT COORDINATOR Oxygen Saturation - - Inhaled Oxygen Concentration - - Weight 92.4 kg (203 lb 13 oz) 07/20/2020 10:28 AM PLACEMENT COORDINATOR Height - - Body Mass Index 32.37 07/03/2020 9:03 AM PLACEMENT COORDINATOR documented in 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 Administered Medications Inactive Administered Medications - up to 3 most recent administrations Medication Order MAR Action Action Date Dose Rate Site Research IRB [id number] Subsequent Bag 07/20/2020 1:48 PM 565 mg 5 00 mL/hr [id number] 1,130 mg in NaCl PLACEMENT COORDINATOR 0.9% (non-PVC) 1,113 mL IVPB 1,130 mg [...] central line. New Bag 07/20/2020 12:09 PM PLACEMENT COORDINATOR 565 mg 500 mL/hr sodium chloride 0.9 % injection 3 mL Given 07/20/2020 3:23 PM PLACEMENT COORDINATOR 30 mL 3 mL, intra-catheter, As needed, line care, Starting on Aruna 07/20/20 at 1523, Prior to and following infusion and between multiple consecutive infusions. documented in this encounter
--- OUTSIDE RECORDS SUMMARY | 2022-05-02 12:35 | XMS_ITS | Encounter Summary ---
:[address] [facility] Address [address] [place] [id number] Care Team Providers Name Role Phone Unavailable Primary Care Provider Unavailable Encounter Details Date Type Department Care Team Description 07/24/2020 Hospital Encounter Department of Gangat, Myelofib rosis ([facility]) Laboratory Medicine [facility], and [facility] [address] [place] [id number] [place], [place] [phone] (Work) [phone] Social History Tobacco Use Types Packs/Day Years Used Date Smoking Tobacco: Former Smokeless Tobacco: Never Sex Assigned at Date Recorded Female 07/24/2021 11:03 AM LEGAL PRACTICE MANAGER documented as of this encounter Medications at [...] Routine 07/24/2020 8:50 Results for this AM LEGAL PRACTICE MANAGER procedure are i n the results section. CBC WITH DIFFERENTIAL, B Routine 07/24/2020 8:50 Myelofibrosis (HCC) Results for this AM LEGAL PRACTICE MANAGER procedure are i n the results section. TYPE AND SCREEN Routine 07/24/2020 8:50 Myelofibrosis (HCC) Re sults for this AM LEGAL PRACTICE MANAGER procedure are i n the results section. URIC ACID, S/P Routine 07/24/2020 8:50 Myelofibrosis (HCC) Res ults for this AM LEGAL PRACTICE MANAGER procedure are i n the results section. BUN (BLOOD UREA Routine 07/24/2020 8:50 Myelofibrosis (HCC) Re sults for this NITROGEN), S/P AM LEGAL PRACTICE MANAGER procedure are in the results section. ALANINE AMINOTRANSFERASE Routine 07/24/2020 8:50 Myelofibrosis (HCC) Results for this (ALT), S/P AM LEGAL PRACTICE MANAGER procedure are i n the results section. ASPARTATE Routine 07/24/2020 8:50 Myelofibrosis (HCC) Resul ts for this AMINOTRANSFERASE (AST), AM LEGAL PRACTICE MANAGER proc edure are in S/P the results section. SODIUM, S/P Routine 07/24/2020 8:50 Myelofibrosis (HCC) Resul ts for this AM LEGAL PRACTICE MANAGER procedure are i n the results section. PROTEIN, TOTAL, S/P Routine 07/24/2020 8:50 Myelofibrosis (HCC ) Results for this AM LEGAL PRACTICE MANAGER procedure are i n the results section. POTASSIUM, S/P Routine 07/24/2020 8:50 Myelofibrosis (HCC) Res ults for this AM LEGAL PRACTICE MANAGER procedure are i n the results section. ALKALINE PHOSPHATASE, Routine 07/24/2020 8:50 Myelofibrosis (H CC) Results for this S/P AM LEGAL PRACTICE MANAGER procedure are i n the results section. MAGNESIUM, S Routine 07/24/2020 8:50 Myelofibrosis (HCC) Resul ts for this AM LEGAL PRACTICE MANAGER procedure are i n the results section. GLUCOSE, RANDOM, S/P Routine 07/24/2020 8:50 Myelofibrosis (HC C) Results for this AM LEGAL PRACTICE MANAGER procedure are i n the results section. CREATININE WITH EGFR, Routine 07/24/2020 8:50 Myelofibrosis (H CC) Results for this S/P AM LEGAL PRACTICE MANAGER procedure are i n the results section. CHLORIDE, S/P Routine 07/24/2020 8:50 Myelofibrosis (HCC) Resu lts for this AM LEGAL PRACTICE MANAGER procedure are i n the results section. CALCIUM, TOT, S/P Routine 07/24/2020 8:50 Myelofibrosis (HCC) Results for this AM LEGAL PRACTICE MANAGER procedure are i n the results section. BILIRUBIN, TOT, S/P Routine 07/24/2020 8:50 Myelofibrosis (HCC ) Results for this AM LEGAL PRACTICE MANAGER procedure are i n the results section. ALBUMIN, S/P Routine 07/24/2020 8:50 Myelofibrosis (HCC) Resul ts for this AM LEGAL PRACTICE MANAGER procedure are i n the results section. documented in this encounter Results (ABNORMAL) Morphology Evaluation (Special Smear) (07/24/2020 8:50 AM LEGAL PRACTICE MANAGER) Analysis Performed At Patho logist Time Signature Neutrophilic Segs 86 (H) 50 - 75 % 07/24/2020 DHPM and Bands 10:33 AM LEGAL PRACTICE MANAGER Lymphocytes 8 (L) 18 - 42 % 07/24/2020 DHPM 10:33 AM LEGAL PRACTICE MANAGER Monocytes 2 2 - 11 % 07/24/2020 DHPM 10:33 AM LEGAL PRACTICE MANAGER Eosinophils 1 1 - 3 % 07/24/2020 DHPM 10:33 AM LEGAL PRACTICE MANAGER Myelocytes 3 (H) <0.5 % 07/24/2020 DHPM 10:33 AM LEGAL PRACTICE MANAGER Nucleated RBC 4 /100 WBC 07/24/2020 DHPM 10:33 AM LEGAL PRACTICE MANAGER Manual Absolute 2.06 1.56 - 07/24/2020 DHPM Neutrophil Count 6.45 10:33 AM LEGAL PRACTICE MANAGER x10(9)/L Comment: ----ADDITIONAL INFORMATION---- The manual absolute neutrophil count is derived from a manual differential count and therefore is not exactly comparable to the automated absolute halie trophil count. Specimen Anatomical Collection Method Collection Time Receive d Time (Source) Location / / Volume Laterality Blood 07/24/2020 8:50 AM 9:22 LEGAL PRACTICE MANAGER AM LEGAL PRACTICE MANAGER Janusz ArringtonB.S. LAB BLOOD ADD-ON Performing Organization Address City/[facility] Phon e Number [facility] - [address] [place], [place] [address] [place] [address] [address] Type and Screen (with reflex Antibody ID) (07/24/2020 8:50 AM LEGAL PRACTICE MANAGER) Patholo gist Method Time Signature ABORh A Pos Not 07/24/2020 ETRM applicable 10:46 AM LEGAL PRACTICE MANAGER Antibody Negative Negative 07/24/2020 ETRM Screen 10:56 AM LEGAL PRACTICE MANAGER Type & Screen 07/27/2020 07/24/2020 ETRM Expiration 23:59 10:46 AM LEGAL PRACTICE MANAGER Testing [place] DEFAULT 07/24/2020 ETRM Location 9:34 AM LEGAL PRACTICE MANAGER Specimen Anatomical Collection Method Collection Time Receive d Time (Source) Location / / Volume Laterality Blood (Blood, 07/24/2020 8:50 AM 07/24/19 21 9:34 Venous) LEGAL PRACTICE MANAGER AM LEGAL PRACTICE MANAGER Janusz ArringtonB.S. LAB BLOOD BANK TEST ORDERABL ES Performing Organization Address [facility] Phon e Number [facility] - [address] [place], [place] [address] [facility] [place] [address] (ABNORMAL) Protein, Total (07/24/2020 8:50 AM LEGAL PRACTICE MANAGER) P athologist Signature Protein, 5.9 (L) 6.3 - 7.9 07/24/2020 DTL Total, S g/dL 9:46 AM LEGAL PRACTICE MANAGER Specimen Anatomical Collection Method Collection Time Receive d Time (Source) Location / / Volume Laterality Blood (Blood, 07/24/2020 8:50 AM 07/24/19 21 9:14 Venous) LEGAL PRACTICE MANAGER AM LEGAL PRACTICE MANAGER Janusz ArringtonB.S. LAB BLOOD ADD-ON Performing Organization Address City/State/ZIP Code Phon e Number [facility] - [address] [facility] Albumin (07/24/2020 8:50 AM LEGAL PRACTICE MANAGER) P athologist Signature Albumin, S 4.2 3.5 - 5.0 07/24/2020 DTL g/dL 9:46 AM LEGAL PRACTICE MANAGER Specimen Anatomical Collection Method Collection Time Receive d Time (Source) Location / / Volume Laterality Blood (Blood, 07/24/2020 8:50 AM 07/24/19 9:14 Venous) LEGAL PRACTICE MANAGER AM LEGAL PRACTICE MANAGER Janusz Holt.S. LAB BLOOD ADD-ON Performing Organization Address City/[facility]/ZIP Code Phon e Number [facility] - [id number] [place] [address] [facility] Glucose, Random (07/24/2020 8:50 AM LEGAL PRACTICE MANAGER) P athologist Signature Glucose, S 131 70 - 140 07/24/2020 DTL mg/dL 9:46 AM LEGAL PRACTICE MANAGER Specimen Anatomical Collection Method Collection Time Receive d Time (Source) Location / / Volume Laterality Blood (Blood, 07/24/2020 8:50 AM 07/24/19 9:14 Venous) LEGAL PRACTICE MANAGER AM LEGAL PRACTICE MANAGER Janusz ArringtonB.S. LAB BLOOD TROPONIN Performing Organization Address City/State/ZIP Code Phon e Number [facility] - 200 [place], [place] [address] [place] [phone] [place] [address] [facility] Uric Acid (07/24/2020 8:50 AM LEGAL PRACTICE MANAGER) P athologist Signature Uric Acid, S 5.5 2.7 - 6.1 07/24/2020 DTL mg/dL 9:46 AM LEGAL PRACTICE MANAGER Specimen Anatomical Collection Method Collection Time Receive d Time (Source) Location / / Volume Laterality Blood (Blood, 07/24/2020 8:50 AM 07/24/19 9:14 Venous) LEGAL PRACTICE MANAGER AM LEGAL PRACTICE MANAGER Janusz ArringtonB.S. LAB BLOOD ADD-ON Performing Organization Address City/State/ZIP Code Phon e Number [facility] - [address] [place], [place] [address] [place] [address] Laboratories-[place] [address] [facility] Creatinine with Estimated GFR (07/24/2020 8:50 AM LEGAL PRACTICE MANAGER) athologist Signature Creatinine 0.95 0.59 - 07/24/2020 DTL 1.04 mg/dL 9:46 AM LEGAL PRACTICE MANAGER eGFR-Non 69 >=60 07/24/2020 DTL Black/ mL/min/BSA 9:46 AM LEGAL PRACTICE MANAGER Japanese Comment: ----ADDITIONAL INFORMATION---- Estimated GFR calculated using the 2009 CKD_EPI creatinine equation. eGFR-Black/ 80 >=60 mL/min/BSA 2020 9:46 AM LEGAL PRACTICE MANAGER DTL Comment: ----ADDITIONAL INFORMATION---- Estimated GFR calculated using the 2009 CKD_EPI creatinine equation. Specimen Anatomical Collection Method Collection Time Receive d Time (Source) Location / / Volume Laterality Blood (Blood, 07/24/2020 8:50 AM 07/24/19 9:14 Venous) LEGAL PRACTICE MANAGER AM LEGAL PRACTICE MANAGER Janusz ArringtonB.S. LAB BLOOD ADD-ON Performing Organization Address City/[facility]/ZIP Code Phon e Number [facility] - [address] [place], [place] [address] [place] [address] [address] BUN (Blood Urea Nitrogen) (07/24/2020 8:50 AM LEGAL PRACTICE MANAGER) P athologist Signature BUN (Blood Urea 15 6 - 21 07/24/2020 DTL Nitrogen), S mg/dL 9:46 AM LEGAL PRACTICE MANAGER Specimen Anatomical Collection Method Collection Time Receive d Time (Source) Location / / Volume Laterality Blood (Blood, 07/24/2020 8:50 AM 07/24/19 9:14 Venous) LEGAL PRACTICE MANAGER AM LEGAL PRACTICE MANAGER Janusz ArringtonB.S. LAB BLOOD ADD-ON Performing Organization Address City/State/ZIP Code Phon e Number [facility] - [address] Bilirubin, Total (07/24/2020 8:50 AM LEGAL PRACTICE MANAGER) athologist Signature Bilirubin, 0.7 <=1.2 mg/dL 07/24/2020 DTL Total, S 9:46 AM LEGAL PRACTICE MANAGER Specimen Anatomical Collection Method Collection Time Receive d Time (Source) Location / / Volume Laterality Blood (Blood, 07/24/2020 8:50 AM 07/24/19 9:14 Venous) LEGAL PRACTICE MANAGER AM LEGAL PRACTICE MANAGER Janusz Higgins.B.S. LAB BLOOD ADD-ON Performing Organization Address City/[facility] Phon e Number [facility] - [address] (ABNORMAL) Calcium, Total (07/24/2020 8:50 AM LEGAL PRACTICE MANAGER) athologist Signature Calcium, 8.5 (L) 8.6 - 10.0 07/24/2020 DTL Total, S mg/dL 9:58 AM LEGAL PRACTICE MANAGER Specimen Anatomical Collection Method Collection Time Receive d Time (Source) Location / / Volume Laterality Blood (Blood, 07/24/2020 8:50 AM 07/24/19 9:14 Venous) LEGAL PRACTICE MANAGER AM LEGAL PRACTICE MANAGER Janusz HayesB.B.S. LAB BLOOD ADD-ON Performing Organization Address City/State/[facility] Code Phon e Number [facility] - [address] (ABNORMAL) Chloride (07/24/2020 8:50 AM LEGAL PRACTICE MANAGER) athologist Signature Chloride, S 108 (H) 98 - 107 07/24/2020 DTL mmol/L 9:46 AM LEGAL PRACTICE MANAGER Specimen Anatomical Collection Method Collection Time Receive d Time (Source) Location / / Volume Laterality Blood (Blood, 07/24/2020 8:50 AM 07/24/19 9:14 Venous) LEGAL PRACTICE MANAGER AM LEGAL PRACTICE MANAGER Naseema Gangat M.Cain.B.S. LAB BLOOD ADD-ON Performing Organization Address City/[facility]/ZIP [facility] Phon e Number [facility] - [address] 200 [facility] Magnesium (07/24/2020 8:50 AM LEGAL PRACTICE MANAGER) P athologist Signature Magnesium, S 2.1 1.7 - 2.3 07/24/2020 DTL mg/dL 9:46 AM LEGAL PRACTICE MANAGER Specimen Anatomical Collection Method Collection Time Receive d Time (Source) Location / / Volume Laterality Blood (Blood, 07/24/2020 8:50 AM 07/24/19 9:14 Venous) LEGAL PRACTICE MANAGER AM LEGAL PRACTICE MANAGER Janusz Dillon.B.B.S. LAB BLOOD ADD-ON Performing Organization Address City/[facility] Phon e Number [facility] - [phone] [place] [address] Potassium (07/24/2020 8:50 AM LEGAL PRACTICE MANAGER) athologist Signature Potassium, S 4.2 3.6 - 5.2 07/24/2020 DTL mmol/L 9:46 AM LEGAL PRACTICE MANAGER Specimen Anatomical Collection Method Collection Time Receive d Time (Source) Location / / Volume Laterality Blood (Blood, 07/24/2020 8:50 AM 07/24/19 9:14 Venous) LEGAL PRACTICE MANAGER AM LEGAL PRACTICE MANAGER Janusz Dillon.B.B.S. LAB BLOOD ADD-ON Performing Organization Address City/State/ZIP Code Phon e Number [facility] - 200 [place], [place] [address] [place] [address] Sodium (07/24/2020 8:50 AM LEGAL PRACTICE MANAGER) P athologist Signature Sodium, S 143 135 - 145 07/24/2020 9:46 DTL mmol/L AM LEGAL PRACTICE MANAGER Specimen Anatomical Collection Method Collection Time Receive d Time (Source) Location / / Volume Laterality Blood (Blood, 07/24/2020 8:50 AM 01/11/20 21 9:14 Venous) LEGAL PRACTICE MANAGER AM LEGAL PRACTICE MANAGER Nasjonathan Govea M.B.B.S. LAB BLOOD ADD-ON Performing Organization Address City/[facility]/ZIP Code Phon e Number [facility] - [address] [place], [place] [address] [place], [place] [phone] [place] [address] [address] [facility] Alkaline Phosphatase (07/24/2020 8:50 AM LEGAL PRACTICE MANAGER) P athologist Signature Alkaline 36 35 - 104 07/24/2020 DTL Phosphatase, S U/L 9:46 AM LEGAL PRACTICE MANAGER Specimen Anatomical Collection Method Collection Time Receive d Time (Source) Location / / Volume Laterality Blood (Blood, 07/24/2020 8:50 AM 07/24/19 9:14 Venous) LEGAL PRACTICE MANAGER AM LEGAL PRACTICE MANAGER Janusz Govea M.B.B.S. LAB BLOOD ADD-ON Performing Organization Address City/[facility] Phon e Number [facility] - [address] [place] [address] [address] [facility] [place] [address] [facility] [address] [facility] AST (Aspartate Aminotransferase) (07/24/2020 8:50 AM LEGAL PRACTICE MANAGER) [facility] Method Time Signature Aspartate 27 8 - 43 07/24/2020 DTL Aminotransferase U/L 9:46 AM LEGAL PRACTICE MANAGER (AST), S Specimen Anatomical Collection Method Collection Time Receive d Time (Source) Location / / Volume Laterality Blood (Blood, 07/24/2020 8:50 AM 07/24/19 21 9:14 Venous) LEGAL PRACTICE MANAGER AM LEGAL PRACTICE MANAGER Nasjonathan Govea M.B.B.S. LAB BLOOD ADD-ON Performing Organization Address City/State/ZIP Code Phon e Number [facility] - [address] [place], [place] [address] [place] [address] [facility] ALT (Alanine Aminotransferase) (07/24/2020 8:50 AM LEGAL PRACTICE MANAGER) Patholo gist Method Time Signature Alanine 9 7 - 45 07/24/2020 DTL Aminotransferase U/L 9:46 AM LEGAL PRACTICE MANAGER (ALT), S Specimen Anatomical Collection Method Collection Time Receive d Time (Source) Location / / Volume Laterality Blood (Blood, 07/24/2020 8:50 AM 07/24/19 21 9:14 Venous) LEGAL PRACTICE MANAGER AM LEGAL PRACTICE MANAGER Janusz AlexandraSZahraa LAB BLOOD ADD-ON Performing Organization Address City/[facility] Code Phon e Number [facility] - [address] [place] [phone] Laboratories-[facility] 200 [facility] (ABNORMAL) CBC with Differential, Blood (07/24/2020 8:50 AM LEGAL PRACTICE MANAGER) [facility] Method Time Signature Hemoglobin 5.9 (CL) 11.6 - 07/24/2020 DTL 15.0 g/dL 9:58 AM LEGAL PRACTICE MANAGER Hematocrit 18.9 (L) 35.5 - 07/24/2020 DTL 44.9 % 9:58 AM LEGAL PRACTICE MANAGER Erythrocytes 2.10 (L) 3.92 - 07/24/2020 DTL 5.13 9:58 AM LEGAL PRACTICE MANAGER x10(12)/L MCV 90.0 78.2 - 07/24/2020 DTL 97.9 fL 9:58 AM LEGAL PRACTICE MANAGER RBC Distrib Width 24.4 (H) 12.2 - 07/24/2020 DTL 16.1 % 9:58 AM LEGAL PRACTICE MANAGER Platelet Count 70 (L) 157 - 371 07/24/2020 DTL x10(9)/L 9:58 AM LEGAL PRACTICE MANAGER Leukocytes 2.4 (L) 3.4 - 9.6 07/24/2020 DTL x10(9)/L 10:33 AM LEGAL PRACTICE MANAGER Comment: Results confirmed by smear. Neutrophils SeeComment 1.56 - 6.45 x10(9)/L 07/24/2020 10:33 AM LEGAL PRACTICE MANAGER DTL Comment: Auto-diff results not valid. Se e manual differential. Specimen Anatomical Collection Method Collection Time Receive d Time (Source) Location / / Volume Laterality Blood (Blood, 07/24/2020 8:50 AM 07/24/19 21 9:22 Venous) LEGAL PRACTICE MANAGER AM LEGAL PRACTICE MANAGER Janusz AlexandraS. LAB BLOOD ADD-ON Performing Organization Address City/[facility] Phon e Number [facility] - [address] [place] [address] [facility] [address] documented in this encounter Visit Diagnoses Diagnosis Myelofibrosis (HCC) documented in this encounter
--- OUTSIDE RECORDS SUMMARY | 2022-05-02 12:35 | XMS_ITS | Encounter Summary ---
:1970 Author Organization [facility] Address [address] [place] [address] Care Team Providers Name Role Phone Unavailable Primary Care Provider Unavailable Encounter Details Date Type Department Care Team Description 07/17/2020 Hospital Encounter Department of Gangat, Myelofib rosis ([facility]) Laboratory Medicine [facility], [facility] [address] [place] [id number] [place], [place] [phone] (Work) [phone] Social History Tobacco Use Types Packs/Day Years Used Date Smoking Tobacco: Former Smokeless Tobacco: Never Sex Assigned at Date Recorded Female 07/24/2021 11:03 AM DIRECTOR OF PARKS AND 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 CBC WITH DIFFERENTIAL, B Routine 07/17/2020 9:41 Myelofibrosis (HCC) Results for this AM DIRECTOR OF PARKS AND RECREATION procedure are i n the results section. TYPE AND SCREEN Routine 07/17/2020 9:41 Myelofibrosis (HCC) Re sults for this AM DIRECTOR OF PARKS AND RECREATION procedure are i n the results section. URIC ACID, S/P Routine 07/17/2020 9:41 Myelofibrosis (HCC) Res ults for this AM DIRECTOR OF PARKS AND RECREATION procedure are i n the results section. BUN (BLOOD UREA Routine 07/17/2020 9:41 Myelofibrosis (HCC) Re sults for this NITROGEN), S/P AM DIRECTOR OF PARKS AND RECREATION procedure are in the results section. ALANINE AMINOTRANSFERASE Routine 07/17/2020 9:41 Myelofibrosis (HCC) Results for this (ALT), S/P AM DIRECTOR OF PARKS AND RECREATION procedure are i n the results section. ASPARTATE Routine 07/17/2020 9:41 Myelofibrosis (HCC) Resul ts for this AMINOTRANSFERASE (AST), AM DIRECTOR OF PARKS AND RECREATION proc edure are in S/P the results section. SODIUM, S/P Routine 07/17/2020 9:41 Myelofibrosis (HCC) Resul ts for this AM DIRECTOR OF PARKS AND RECREATION procedure are i n the results section. PROTEIN, TOTAL, S/P Routine 07/17/2020 9:41 Myelofibrosis (HCC ) Results for this AM DIRECTOR OF PARKS AND RECREATION procedure are i n the results section. POTASSIUM, S/P Routine 07/17/2020 9:41 Myelofibrosis (HCC) Res ults for this AM DIRECTOR OF PARKS AND RECREATION procedure are i n the results section. ALKALINE PHOSPHATASE, Routine 07/17/2020 9:41 Myelofibrosis (H CC) Results for this S/P AM DIRECTOR OF PARKS AND RECREATION procedure are i n the results section. MAGNESIUM, S Routine 07/17/2020 9:41 Myelofibrosis (HCC) Resul ts for this AM DIRECTOR OF PARKS AND RECREATION procedure are i n the results section. GLUCOSE, RANDOM, S/P Routine 07/17/2020 9:41 Myelofibrosis (HC C) Results for this AM DIRECTOR OF PARKS AND RECREATION procedure are i n the results section. CREATININE WITH EGFR, Routine 07/17/2020 9:41 Myelofibrosis (H CC) Results for this S/P AM DIRECTOR OF PARKS AND RECREATION procedure are i n the results section. CHLORIDE, S/P Routine 07/17/2020 9:41 Myelofibrosis (HCC) Resu lts for this AM DIRECTOR OF PARKS AND RECREATION procedure are i n the results section. CALCIUM, TOT, S/P Routine 07/17/2020 9:41 Myelofibrosis (HCC) Results for this AM DIRECTOR OF PARKS AND RECREATION procedure are i n the results section. BILIRUBIN, TOT, S/P Routine 07/17/2020 9:41 Myelofibrosis (HCC ) Results for this AM DIRECTOR OF PARKS AND RECREATION procedure are i n the results section. ALBUMIN, S/P Routine 07/17/2020 9:41 Myelofibrosis (HCC) Resul ts for this AM DIRECTOR OF PARKS AND RECREATION procedure are i n the results section. documented in this encounter Results (ABNORMAL) Morphology Evaluation (Special Smear) (07/17/2020 9:41 AM DIRECTOR OF PARKS AND RECREATION) [facility] Method Time Signature Neutrophilic Segs 78 (H) 50 - 75 % 07/17/2020 DHPM and Bands 11:40 AM DIRECTOR OF PARKS AND RECREATION Lymphocytes 9 (L) 18 - 42 % 07/17/2020 DHPM 11:40 AM DIRECTOR OF PARKS AND RECREATION Monocytes 5 2 - 11 % 07/17/2020 DHPM 11:40 AM DIRECTOR OF PARKS AND RECREATION Metamyelocytes 3 (H) <1 % 07/17/2020 DHPM 11:40 AM DIRECTOR OF PARKS AND RECREATION Myelocytes 5 (H) <0.5 % 07/17/2020 DHPM 11:40 AM DIRECTOR OF PARKS AND RECREATION Nucleated RBC 3 /100 WBC 07/17/2020 DHPM 11:40 AM DIRECTOR OF PARKS AND RECREATION Manual Absolute 2.03 1.56 - 07/17/2020 DHPM Neutrophil Count 6.45 11:40 AM DIRECTOR OF PARKS AND RECREATION x10(9)/L Comment: ----ADDITIONAL INFORMATION---- The manual absolute neutrophil count is derived from a manual differential count and therefore is not exactly comparable to the automated absolute halie trophil count. Specimen Anatomical Collection Method Collection Time Receive d Time (Source) Location / / Volume Laterality Blood 07/17/2020 9:41 AM DIRECTOR OF PARKS AND RECREATION 10:06 AM DIRECTOR OF PARKS AND RECREATION Janusz AlexandraSZahraa LAB BLOOD ADD-ON Performing Organization Address City/[facility] Phon e Number [facility] - [address] [place], [place] [address] [place] [address] [address] Type and Screen (with reflex Antibody ID) (07/17/2020 9:41 AM DIRECTOR OF PARKS AND RECREATION) Patholo gist Method Time Signature ABORh A Pos Not 07/17/2020 ETRM applicable 12:30 PM DIRECTOR OF PARKS AND RECREATION Antibody Negative Negative 07/17/2020 ETRM Screen 12:38 PM DIRECTOR OF PARKS AND RECREATION Type & Screen 07/20/2020 07/17/2020 ETRM Expiration 23:59 12:30 PM DIRECTOR OF PARKS AND RECREATION Testing [place] DEFAULT 07/17/2020 ETRM Location 10:00 AM DIRECTOR OF PARKS AND RECREATION Specimen Anatomical Collection Method Collection Time Receive d Time (Source) Location / / Volume Laterality Blood (Blood, 07/17/2020 9:41 AM 07/17/19 Venous) DIRECTOR OF PARKS AND RECREATION 10:00 AM DIRECTOR OF PARKS AND RECREATION Janusz AlexandraSZahraa LAB BLOOD BANK TEST ORDERABL ES Performing Organization Address [facility] Phon e Number [facility] - [address] [place], [place] [address] [facility] [place] [address] [facility]-[address] Protein, Total (07/17/2020 9:41 AM DIRECTOR OF PARKS AND RECREATION) P athologist Signature Protein, Total, 6.4 6.3 - 7.9 07/17/2020 DTL S g/dL 11:15 AM DIRECTOR OF PARKS AND RECREATION Specimen Anatomical Collection Method Collection Time Receive d Time (Source) Location / / Volume Laterality Blood (Blood, 07/17/2020 9:41 AM 07/17/19 Venous) DIRECTOR OF PARKS AND RECREATION 10:05 AM DIRECTOR OF PARKS AND RECREATION Janusz AlexandraS. LAB BLOOD ADD-ON Performing Organization Address City/[facility]/ZIP [facility] Phon e Number [facility] - [address] Albumin (07/17/2020 9:41 AM DIRECTOR OF PARKS AND RECREATION) P athologist Signature Albumin, S 4.5 3.5 - 5.0 07/17/2020 DTL g/dL 11:15 AM DIRECTOR OF PARKS AND RECREATION Specimen Anatomical Collection Method Collection Time Receive d Time (Source) Location / / Volume Laterality Blood (Blood, 07/17/2020 9:41 AM 07/17/19 Venous) DIRECTOR OF PARKS AND RECREATION 10:05 AM DIRECTOR OF PARKS AND RECREATION Janusz AlexandraS. LAB BLOOD ADD-ON Performing Organization Address City/[facility]/ZIP Code Phon e Number [facility] - [address] Glucose, Random (07/17/2020 9:41 AM DIRECTOR OF PARKS AND RECREATION) athologist Signature Glucose, S 137 70 - 140 07/17/2020 DTL mg/dL 11:15 AM DIRECTOR OF PARKS AND RECREATION Specimen Anatomical Collection Method Collection Time Receive d Time (Source) Location / / Volume Laterality Blood (Blood, 07/17/2020 9:41 AM 07/17/19 Venous) DIRECTOR OF PARKS AND RECREATION 10:05 AM DIRECTOR OF PARKS AND RECREATION Janusz AlexandraS. LAB BLOOD TROPONIN Performing Organization Address City/[facility]/ZIP Code Phon e Number [facility] - [id number] [place] [address] (ABNORMAL) Uric Acid (07/17/2020 9:41 AM DIRECTOR OF PARKS AND RECREATION) P athologist Signature Uric Acid, S 6.6 (H) 2.7 - 6.1 07/17/2020 DTL mg/dL 11:15 AM DIRECTOR OF PARKS AND RECREATION Specimen Anatomical Collection Method Collection Time Receive d Time (Source) Location / / Volume Laterality Blood (Blood, 07/17/2020 9:41 AM 07/17/19 Venous) DIRECTOR OF PARKS AND RECREATION 10:05 AM DIRECTOR OF PARKS AND RECREATION Janusz ArringtonB.S. LAB BLOOD ADD-ON Performing Organization Address City/[facility] Code Phon e Number [facility] - 200 [place], [place] [address] [place] [address] [address] (ABNORMAL) Creatinine with Estimated GFR (07/17/2020 9:41 AM DIRECTOR OF PARKS AND RECREATION) Analysis Performed At Patho logist Time Signature Creatinine 1.10 (H) 0.59 - 07/17/2020 DTL 1.04 mg/dL 11:15 AM DIRECTOR OF PARKS AND RECREATION eGFR-Non 58 (L) >=60 07/17/2020 DTL Black/ mL/min/BSA 11:15 AM DIRECTOR OF PARKS AND RECREATION Serbian Comment: ----ADDITIONAL INFORMATION---- Estimated GFR calculated using the 2009 CKD_EPI creatinine equation. eGFR-Black/ 67 >=60 mL/min/BSA 2020 11:15 AM DIRECTOR OF PARKS AND RECREATION DTL Comment: ----ADDITIONAL INFORMATION---- Estimated GFR calculated using the 2009 CKD_EPI creatinine equation. Specimen Anatomical Collection Method Collection Time Receive d Time (Source) Location / / Volume Laterality Blood (Blood, 07/17/2020 9:41 AM 07/17/19 Venous) DIRECTOR OF PARKS AND RECREATION 10:05 AM DIRECTOR OF PARKS AND RECREATION Janusz ArringtonB.S. LAB BLOOD ADD-ON Performing Organization Address City/State/ZIP Code Phon e Number [facility] - 200 [place], [place] [address] [place] [address] [address] (ABNORMAL) BUN (Blood Urea Nitrogen) (07/17/2020 9:41 AM DIRECTOR OF PARKS AND RECREATION) P athologist Signature BUN (Blood Urea 25 (H) 6 - 21 07/17/2020 DTL Nitrogen), S mg/dL 11:15 AM DIRECTOR OF PARKS AND RECREATION Specimen Anatomical Collection Method Collection Time Receive d Time (Source) Location / / Volume Laterality Blood (Blood, 07/17/2020 9:41 AM 07/17/19 Venous) DIRECTOR OF PARKS AND RECREATION 10:05 AM DIRECTOR OF PARKS AND RECREATION Janusz ArringtonB.S. LAB BLOOD ADD-ON Performing Organization Address City/[facility] Phon e Number [facility] - [address] [place], [place] [address] [place] [address] [address] [facility] Bilirubin, Total (07/17/2020 9:41 AM DIRECTOR OF PARKS AND RECREATION) athologist Signature Bilirubin, 0.8 <=1.2 mg/dL 07/17/2020 DTL Total, S 11:15 AM DIRECTOR OF PARKS AND RECREATION Specimen Anatomical Collection Method Collection Time Receive d Time (Source) Location / / Volume Laterality Blood (Blood, 07/17/2020 9:41 AM 07/17/19 Venous) DIRECTOR OF PARKS AND RECREATION 10:05 AM DIRECTOR OF PARKS AND RECREATION Janusz AlexandraSZahraa LAB BLOOD ADD-ON Performing Organization Address City/[facility] Phon e Number [facility] - [address] [place], [place] [address] [place] [phone] [place] [address] [address] [facility] Calcium, Total (07/17/2020 9:41 AM DIRECTOR OF PARKS AND RECREATION) athologist Signature Calcium, Total, 8.7 8.6 - 10.0 07/17/2020 DTL S mg/dL 11:15 AM DIRECTOR OF PARKS AND RECREATION Specimen Anatomical Collection Method Collection Time Receive d Time (Source) Location / / Volume Laterality Blood (Blood, 07/17/2020 9:41 AM 07/17/19 Venous) DIRECTOR OF PARKS AND RECREATION 10:05 AM DIRECTOR OF PARKS AND RECREATION Janusz AlexandraS. LAB BLOOD ADD-ON Performing Organization Address City/[facility] Phon e Number [facility] - [address] [place], [place] [address] [place], [place] [phone] [place] [address] [address] [facility] Chloride (07/17/2020 9:41 AM DIRECTOR OF PARKS AND RECREATION) athologist Signature Chloride, S 104 98 - 107 07/17/2020 DTL mmol/L 11:15 AM DIRECTOR OF PARKS AND RECREATION Specimen Anatomical Collection Method Collection Time Receive d Time (Source) Location / / Volume Laterality Blood (Blood, 07/17/2020 9:41 AM 07/17/19 Venous) DIRECTOR OF PARKS AND RECREATION 10:05 AM DIRECTOR OF PARKS AND RECREATION Naseema Gangat M.B.B.S. LAB BLOOD ADD-ON Performing Organization Address City/[facility]/ZIP Code Phon e Number [facility] - [address] [place], [place] [address] [place] [address] 200 [facility] Magnesium (07/17/2020 9:41 AM DIRECTOR OF PARKS AND RECREATION) P athologist Signature Magnesium, S 2.3 1.7 - 2.3 07/17/2020 DTL mg/dL 11:15 AM DIRECTOR OF PARKS AND RECREATION Specimen Anatomical Collection Method Collection Time Receive d Time (Source) Location / / Volume Laterality Blood (Blood, 07/17/2020 9:41 AM 07/17/19 Venous) DIRECTOR OF PARKS AND RECREATION 10:05 AM DIRECTOR OF PARKS AND RECREATION Naseema Gangat M.B.B.S. LAB BLOOD ADD-ON Performing Organization Address City/[facility] Phon e Number [facility] - [phone] [place] [address] [address] [facility] Potassium (07/17/2020 9:41 AM DIRECTOR OF PARKS AND RECREATION) P athologist Signature Potassium, S 4.5 3.6 - 5.2 07/17/2020 DTL mmol/L 11:15 AM DIRECTOR OF PARKS AND RECREATION Specimen Anatomical Collection Method Collection Time Receive d Time (Source) Location / / Volume Laterality Blood (Blood, 07/17/2020 9:41 AM 07/17/19 Venous) DIRECTOR OF PARKS AND RECREATION 10:05 AM DIRECTOR OF PARKS AND RECREATION Naseema Gangat M.B.B.S. LAB BLOOD ADD-ON Performing Organization Address City/State/ZIP [facility] Phon e Number [facility] - [address] Sodium (07/17/2020 9:41 AM DIRECTOR OF PARKS AND RECREATION) P athologist Signature Sodium, S 142 135 - 145 07/17/2020 DTL mmol/L 11:15 AM DIRECTOR OF PARKS AND RECREATION Specimen Anatomical Collection Method Collection Time Receive d Time (Source) Location / / Volume Laterality Blood (Blood, 07/17/2020 9:41 AM 07/17/19 Venous) DIRECTOR OF PARKS AND RECREATION 10:05 AM DIRECTOR OF PARKS AND RECREATION Janusz Dillon.B.B.S. LAB BLOOD ADD-ON Performing Organization Address City/[facility] Code Phon e Number [facility] - [address] [place], [place] [address] [facility] DTSan [place], [place] [phone] [place] [address] Alkaline Phosphatase (07/17/2020 9:41 AM DIRECTOR OF PARKS AND RECREATION) P athologist Signature Alkaline 43 35 - 104 07/17/2020 DTL Phosphatase, S U/L 11:15 AM DIRECTOR OF PARKS AND RECREATION Specimen Anatomical Collection Method Collection Time Receive d Time (Source) Location / / Volume Laterality Blood (Blood, 07/17/2020 9:41 AM 07/17/19 Venous) DIRECTOR OF PARKS AND RECREATION 10:05 AM DIRECTOR OF PARKS AND RECREATION Janusz Dillon.B.B.S. LAB BLOOD ADD-ON Performing Organization Address City/[facility] Phon e Number [facility] - [address] [place], [place] [address] [facility] [place] [address] [facility] [address] AST (Aspartate Aminotransferase) (07/17/2020 9:41 AM DIRECTOR OF PARKS AND RECREATION) [facility] Method Time Signature Aspartate 20 8 - 43 07/17/2020 DTL Aminotransferase U/L 11:15 AM DIRECTOR OF PARKS AND RECREATION (AST), S Specimen Anatomical Collection Method Collection Time Receive d Time (Source) Location / / Volume Laterality Blood (Blood, 07/17/2020 9:41 AM 07/17/19 Venous) DIRECTOR OF PARKS AND RECREATION 10:05 AM DIRECTOR OF PARKS AND RECREATION Janusz Govea M.B.B.S. LAB BLOOD ADD-ON Performing Organization Address City/State/ZIP [facility] Phon e Number [facility] - [address] [place], [place] [address] [place] [address] [facility] ALT (Alanine Aminotransferase) (07/17/2020 9:41 AM DIRECTOR OF PARKS AND RECREATION) Patholo gist Method Time Signature Alanine 8 7 - 45 07/17/2020 DTL Aminotransferase U/L 11:15 AM DIRECTOR OF PARKS AND RECREATION (ALT), S Specimen Anatomical Collection Method Collection Time Receive d Time (Source) Location / / Volume Laterality Blood (Blood, 07/17/2020 9:41 AM 07/17/19 Venous) DIRECTOR OF PARKS AND RECREATION 10:05 AM DIRECTOR OF PARKS AND RECREATION Janusz AlexandraSZahraa LAB BLOOD ADD-ON Performing Organization Address City/State/ZIP Code Phon e Number [facility] - 200 [place], [place] [address] [facility] [place] [address] [facility] 200 [facility] (ABNORMAL) CBC with Differential, Blood (07/17/2020 9:41 AM DIRECTOR OF PARKS AND RECREATION) P athologist Signature Hemoglobin 5.1 (CL) 11.6 - 15.0 07/17/2020 DTL g/dL 10:58 AM DIRECTOR OF PARKS AND RECREATION Comment: Rechecked Hematocrit 16.8 (L) 35.5 - 44.9 % 07/17/2020 10:58 AM DIRECTOR OF PARKS AND RECREATION D TL Erythrocytes 1.92 (L) 3.92 - 5.13 x10(12)/L 07/17/2020 10:5 8 AM DIRECTOR OF PARKS AND RECREATION DTL MCV 87.5 78.2 - 97.9 fL 07/17/2020 10:58 AM DIRECTOR OF PARKS AND RECREATION D TL RBC Distrib Width 26.6 (H) 12.2 - 16.1 % 07/17/2020 10:58 A M DIRECTOR OF PARKS AND RECREATION DTL Platelet Count 77 (L) 157 - 371 x10(9)/L 07/17/2020 10:58 AM DIRECTOR OF PARKS AND RECREATION DTL Leukocytes 2.6 (L) 3.4 - 9.6 x10(9)/L 07/17/2020 11:39 AM DIRECTOR OF PARKS AND RECREATION DTL Comment: Results confirmed by smear. Neutrophils SeeComment 1.56 - 6.45 x10(9)/L 07/17/2020 11:39 AM DIRECTOR OF PARKS AND RECREATION DTL Comment: Auto-diff results not valid. Se e manual differential. Specimen Anatomical Collection Method Collection Time Receive d Time (Source) Location / / Volume Laterality Blood (Blood, 07/17/2020 9:41 AM 07/17/19 Venous) DIRECTOR OF PARKS AND RECREATION 10:06 AM DIRECTOR OF PARKS AND RECREATION Janusz AlexandraSZahraa LAB BLOOD ADD-ON Performing Organization Address City/State/ZIP Code Phon e Number [facility] - 200 [place], [place] [address] [facility] [place] [address] [facility] [address] [facility] documented in this encounter Visit Diagnoses Diagnosis Myelofibrosis (HCC) documented in this encounter
--- OUTSIDE RECORDS SUMMARY | 2022-05-02 12:35 | XMS_ITS | Encounter Summary ---
:1970 Author Organization [facility] Address [address] [place] [address] Care Team Providers Name Role Phone Unavailable Primary Care Provider Unavailable Reason for Visit Episode Based Medications (Routine) - Closed Specialty Diagnoses / Procedures Referred By Contact Refer red To Contact Medical Oncology / Diagnoses Myelofibrosis (HCC) Janusz Govea [facility] Procedures ONCBCN INFUSION APPOINTMENT REQUEST 09 ONC THER INF M.B.B.S. [address] [place] [address] [place] [phone] Referral ID Status Reason Start Date Expiration Date Visits Requ ested Visits Authorized [id number] Closed 06/06/2020 06/20/2021 99 30 Encounter Details Date Type Department Care Team Description 07/24/2020 Infusion Department of Oncology Janusz Govea M yelofibrosis (HCC) in [facility] M[facility] 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 AND STOCK CLERK documented as of this encounter Last Filed Vital Signs Vital Sign Reading Time Taken Comments Blood Pressure 114/55 07/24/2020 2:23 PM PARTS ORDER AND STOCK CLERK Pulse 87 07/24/2020 2:23 PM PARTS ORDER AND STOCK CLERK Temperature 36.5 ??C (97.7 ??F) 07/24/2020 2:23 PM PARTS ORDER AND STOCK CLERK Respiratory Rate 18 07/24/2020 2:23 PM PARTS ORDER AND STOCK CLERK Oxygen Saturation - - Inhaled Oxygen Concentration - - Weight 91.7 kg (202 lb 0.8 oz) 07/24/2020 10:09 AM PARTS ORDER AND STOCK CLERK Height - - Body Mass Index 32.09 07/03/2020 9:03 AM PARTS ORDER AND STOCK CLERK documented in 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 Administered Medications Inactive Administered Medications - up to 3 most recent administrations Medication Order MAR Action Action Date Dose Rate Site Research IRB [id number] New Bag 07/24/2020 12:15 PM PARTS ORDER AND STOCK CLERK 1,130 mg 500 mL/hr 1,130 mg in [...] injection 30 mL Given 07/24/2020 2:21 PM PARTS ORDER AND STOCK CLERK 30 mL 30 mL, intravenous, Once, On Fri07/24/20 at 1230, For 1 dose, Post chemotherapy flush documented in this encounter
--- OUTSIDE RECORDS SUMMARY | 2022-05-02 12:35 | XMS_ITS | Encounter Summary ---
:1970 Author Organization [facility] Address [address] [place] [address] Care Team Providers Name Role Phone Unavailable Primary Care Provider Unavailable Reason for Visit Reason Comments Outpatient Infusion Encounter Details Date Type Department Care Team Description 07/17/2020 Infusion Department of Infusion Janusz Govea M yelofibrosis (HCC) Therapy in [facility]. 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 documented as of this encounter Last Filed Vital Signs Vital Sign Reading Time Taken Comments Blood Pressure 129/71 07/17/2020 9:34 PM PLASTIC PANEL INSTALLER Pulse 90 07/17/2020 9:34 PM PLASTIC PANEL INSTALLER Temperature 37 ??C (98.6 ??F) 07/17/2020 9:34 PM PLASTIC PANEL INSTALLER Respiratory Rate 16 07/17/2020 9:34 PM PLASTIC PANEL INSTALLER Oxygen Saturation - - Inhaled Oxygen Concentration - - Weight - - Height - - Body Mass Index - - documented in this encounter Plan of Treatment Pending Results Name Type Priority Associated Diagnoses Date/Ti me Prepare Red Blood Blood Bank Routine Myelofibrosis (HCC) 10/2020 9:41 AM PLASTIC PANEL INSTALLER Cells, 2 Units documented as of this encounter Procedures Procedure Name Priority Date/Time Associated Diagnosis Comme nts TRANSFUSE RED BLOOD Routine 07/17/2020 7:16 PM PLASTIC PANEL INSTALLER Myelofibros is (HCC) CELLS TRANSFUSE RED BLOOD Routine 07/17/2020 4:57 PM PLASTIC PANEL INSTALLER Myelofibros is (HCC) CELLS PREPARE RED BLOOD CELLS Routine 07/17/2020 9:41 AM PLASTIC PANEL INSTALLER Myelofi brosis (HCC) documented in this encounter Results Transfuse Red Blood Cells : (07/17/2020 9:43 PM PLASTIC PANEL INSTALLER) Naseema Gangat M.B.B.S. BLOOD TRANSFUSION ORDERABLES Transfuse Red Blood Cells : , 2 Units (07/17/2020 9:43 PM PLASTIC PANEL INSTALLER) Naseema Gangat M.B.B.S. BLOOD TRANSFUSION ORDERABLES Transfuse Red Blood Cells : (07/17/2020 7:16 PM PLASTIC PANEL INSTALLER) Naseema Gangat M.B.B.S. BLOOD TRANSFUSION ORDERABLES documented in this encounter Visit Diagnoses Diagnosis Myelofibrosis (HCC) - Primary documented in this encounter Administered Medications Inactive Administered Medications - up to 3 most recent administrations Medication Order MAR Action Action Date Dose Rate Site sodium chloride 0.9 % injection 3 mL Given 07/17/2020 9:34 PM PLASTIC PANEL INSTALLER 3 mL 3 mL, intra-catheter, As needed, line care, Starting on Fri07/17/20 at 1631, Prior to and following infusion and between multiple consecutive infusions. documented in this encounter
--- OUTSIDE RECORDS SUMMARY | 2022-05-02 12:35 | XMS_ITS | Encounter Summary ---
:1970 Author Organization [facility] Address [address] [place] [address] Care Team Providers Name Role Phone Unavailable Primary Care Provider Unavailable Reason for Visit Episode Based Medications (Routine) - Closed Specialty Diagnoses / Procedures Referred By Contact Refer red To Contact Medical Oncology / Diagnoses Myelofibrosis (HCC) Janusz Govea Rst Inf Onc [facility] Oncology Procedures ONCBCN INFUSION APPOINTMENT REQUEST 09 ONC THER INF M.B.B.S. [address] [place] [address] [place] [phone] Referral ID Status Reason Start Date Expiration Date Visits Requ ested Visits Authorized [id number] Closed 06/06/2020 06/20/2021 99 30 Encounter Details Date Type Department Care Team Description 07/27/2020 Infusion Department of Oncology Janusz Govea M yelofibrosis (HCC) in [facility] M.B.B.S. 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 documented as of this encounter Last Filed Vital Signs Vital Sign Reading Time Taken Comments Blood Pressure 121/60 07/27/2020 10:20 AM COMMUNICATIONS DEPARTMENT CHAIR Pulse 84 07/27/2020 10:20 AM COMMUNICATIONS DEPARTMENT CHAIR Temperature 36.5 ??C (97.7 ??F) 07/27/2020 10:20 AM COMMUNICATIONS DEPARTMENT CHAIR Respiratory Rate - - Oxygen Saturation - - Inhaled Oxygen Concentration - - Weight 94.7 kg (208 lb 14.2 oz) 07/27/2020 10:20 AM COMMUNICATIONS DEPARTMENT CHAIR Height - - Body Mass Index 33.18 07/03/2020 9:03 AM COMMUNICATIONS DEPARTMENT CHAIR documented in 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 Administered Medications Inactive Administered Medications - up to 3 most recent administrations Medication Order MAR Action Action Date Dose Rate Site Research IRB [id number] New Bag 07/27/2020 11:16 AM COMMUNICATIONS DEPARTMENT CHAIR 1,130 mg 500 mL/hr 1,130 mg in NaCl 0.9% (non-PVC) 1,113 mL IVPB 1,130 mg (rounded from 1,132.12 mg = 12.4 mg/kg ? 91.3 kg Order-specific weight), intravenous, at 500 mL/hr, Once, On [facility] 07/27/20 at 1030, For 1 dose, CSTDs cannot be used. Flush with 30ml at IV site following completion of . Monitor BP (pre dose & post dose), HR, temp, resp (pre-dose and as clinically indicated). Administer using 1.2 micron filter tubing via a peripheral or central line. sodium chloride (flush) 0.9 % injection 30 mL Given 07/27/2020 1:16 PM COMMUNICATIONS DEPARTMENT CHAIR 30 mL 30 mL, intravenous, Once, On Aruna 07/27/20 at 1030, For 1 dose, Post chemotherapy flush documented in this encounter
--- OUTSIDE RECORDS SUMMARY | 2022-05-02 12:35 | XMS_ITS | Encounter Summary ---
:1970 Author Organization [facility] Address [address] [place] [address] Care Team Providers Name Role Phone Unavailable Primary Care Provider Unavailable Encounter Details Date Type Department Care Team Description 07/27/2020 Hospital Encounter Department of Gangat, Myelofib rosis ([facility]) Laboratory Medicine [facility], and [facility] in [address] [place] [phone] [place], [place] [phone] (Work) [phone] Social History Tobacco Use Types Packs/Day Years Used Date Smoking Tobacco: Former Smokeless Tobacco: Never Sex Assigned at Date Recorded Female 07/24/2021 11:03 AM FUR EXAMINER documented as of this encounter Medications at [...] 07/27/2020 9:17 AM Results f or this FUR EXAMINER procedure are i n the results section. CBC WITH Routine 07/27/2020 9:17 AM Myelofibrosis (HCC) Re sults for this DIFFERENTIAL, B FUR EXAMINER procedure ar e in the results section. TYPE AND SCREEN Routine 07/27/2020 9:17 AM Myelofibrosis (HCC) Results for this FUR EXAMINER procedure are i n the results section. documented in this encounter Results (ABNORMAL) Morphology Evaluation (Special Smear) (07/27/2020 9:17 AM FUR EXAMINER) Patholo gist Method Time Signature Neutrophilic Segs 83 (H) 50 - 75 % 07/27/2020 DHPM and Bands 10:38 AM FUR EXAMINER Lymphocytes 8 (L) 18 - 42 % 07/27/2020 DHPM 10:38 AM FUR EXAMINER Eosinophils 2 1 - 3 % 07/27/2020 DHPM 10:38 AM FUR EXAMINER Basophils 1 0 - 2 % 07/27/2020 DHPM 10:38 AM FUR EXAMINER Metamyelocytes 4 (H) <1 % 07/27/2020 DHPM 10:38 AM FUR EXAMINER Myelocytes 2 (H) <0.5 % 07/27/2020 DHPM 10:38 AM FUR EXAMINER Nucleated RBC 9 /100 WBC 07/27/2020 DHPM 10:38 AM FUR EXAMINER Manual Absolute 1.91 1.56 - 07/27/2020 DHPM Neutrophil Count 6.45 10:38 AM FUR EXAMINER x10(9)/L Comment: ----ADDITIONAL INFORMATION---- The manual absolute neutrophil count is derived from a manual differential count and therefore is not exactly comparable to the automated absolute halie trophil count. Specimen Anatomical Collection Method Collection Time Receive d Time (Source) Location / / Volume Laterality Blood 07/27/2020 9:17 AM 9:42 FUR EXAMINER AM FUR EXAMINER Janusz AlexandraSZahraa LAB BLOOD ADD-ON Performing Organization Address City/[facility] Phon e Number [facility] - [address] [place], [place] [address] [place] [address] Laboratories-[facility] [address] [facility] (ABNORMAL) CBC with Differential, Blood (07/27/2020 9:17 AM FUR EXAMINER) [facility] gist Method Time Signature Hemoglobin 6.2 (L) 11.6 - 07/27/2020 DTL 15.0 g/dL 9:52 AM FUR EXAMINER Hematocrit 20.0 (L) 35.5 - 07/27/2020 DTL 44.9 % 9:52 AM FUR EXAMINER Erythrocytes 2.21 (L) 3.92 - 07/27/2020 DTL 5.13 9:52 AM FUR EXAMINER x10(12)/L MCV 90.5 78.2 - 07/27/2020 DTL 97.9 fL 9:52 AM FUR EXAMINER RBC Distrib Width 24.7 (H) 12.2 - 07/27/2020 DTL 16.1 % 9:52 AM FUR EXAMINER Platelet Count 81 (L) 157 - 371 07/27/2020 DTL x10(9)/L 9:52 AM FUR EXAMINER Leukocytes 2.3 (L) 3.4 - 9.6 07/27/2020 DTL x10(9)/L 10:38 AM FUR EXAMINER Comment: Results confirmed by smear. Neutrophils SeeComment 1.56 - 6.45 x10(9)/L 07/27/2020 10:38 AM FUR EXAMINER DTL Comment: Auto-diff results not valid. Se e manual differential. Specimen Anatomical Collection Method Collection Time Receive d Time (Source) Location / / Volume Laterality Blood (Blood, 07/27/2020 9:17 AM 07/27/19 9:42 Venous) FUR EXAMINER AM FUR EXAMINER Janusz AlexandraSZahraa LAB BLOOD ADD-ON Performing Organization Address City/[facility]/ZIP Code Phon e Number [facility] - [address] [place], [place] [address] [facility] [place] [address] Laboratories-[facility] [address] Type and Screen (with reflex Antibody ID) (07/27/2020 9:17 AM FUR EXAMINER) [facility] gist Method Time Signature ABORh A Pos Not 07/27/2020 ETRM applicable 10:54 AM FUR EXAMINER Antibody Negative Negative 07/27/2020 ETRM Screen 10:57 AM FUR EXAMINER Type & Screen 07/30/2020 07/27/2020 ETRM Expiration 23:59 10:54 AM FUR EXAMINER Testing [place] DEFAULT 07/27/2020 ETRM Location 9:49 AM FUR EXAMINER Specimen Anatomical Collection Method Collection Time Receive d Time (Source) Location / / Volume Laterality Blood (Blood, 07/27/2020 9:17 AM 07/27/19 9:49 Venous) FUR EXAMINER AM FUR EXAMINER Janusz Ardon LAB BLOOD BANK TEST ORDERABL ES Performing Organization Address City/State/ZIP Code Phon e Number [facility] - [address] [place] [address] [facility] [place] [address] Laboratories-[facility] [address] documented in this encounter Visit Diagnoses Diagnosis Myelofibrosis (HCC) documented in this encounter
--- OUTSIDE RECORDS SUMMARY | 2022-05-02 12:35 | XMS_ITS | Encounter Summary ---
:1970 Author Organization [facility] Address [address] [place] [address] Care Team Providers Name Role Phone Unavailable Primary Care Provider Unavailable Encounter Details Date Type Department Care Team Description 07/13/2020 Orders Only Division of Mary Ann Shaver Myelofibro sis (HCC) Hematology in [place] 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
--- OUTSIDE RECORDS SUMMARY | 2022-05-02 12:35 | XMS_ITS | Encounter Summary ---
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
--- OUTSIDE RECORDS SUMMARY | 2022-05-02 12:35 | XMS_ITS | Encounter Summary ---
:1970 Author Organization [facility] Address [address] [place] [address] Care Team Providers Name Role Phone Unavailable Primary Care Provider Unavailable Encounter Details Date Type Department Care Team Description 07/24/2020 Orders Only Division of Krzysztof Pearce Myelofibr osis (HCC) Hematology in (Primary Dx) [place], [place] [phone] [address] [facility] (Work) [place] [address] Social History Tobacco Use Types Packs/Day Years Used Date Smoking Tobacco: Former Smokeless Tobacco: Never Sex Assigned at Date Recorded Female 07/24/2021 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
--- OUTSIDE RECORDS SUMMARY | 2022-05-02 12:35 | XMS_ITS | Encounter Summary ---
:1970 Author Organization [facility] Address [address] [place] [address] Care Team Providers Name Role Phone Unavailable Primary Care Provider Unavailable Encounter Details Date Type Department Care Team Description 07/10/2020 Orders Only Division of Mary Ann Shaver Myelofibro sis (HCC) Hematology in [place] 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
--- OUTSIDE RECORDS SUMMARY | 2022-05-02 12:35 | XMS_ITS | Encounter Summary ---
:1970 Author Organization [facility] Address [address] [place] [address] Care Team Providers Name Role Phone Unavailable Primary Care Provider Unavailable Encounter Details Date Type Department Care Team Description 07/24/2020 Orders Only Division of Hematology Janusz Govea M yelofibrosis (HCC) in [facility] (Primary Dx) [address] [phone] Social History Tobacco Use Types Packs/Day Years Used Date Smoking Tobacco: Former Smokeless Tobacco: Never Sex Assigned at Date Recorded Female 07/24/2021 11:03 AM 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
--- OUTSIDE RECORDS SUMMARY | 2022-05-02 12:35 | XMS_ITS | Encounter Summary ---
:1970 Author Organization [facility] Address [address] [place] [address] Care Team Providers Name Role Phone Unavailable Primary Care Provider Unavailable Reason for Visit Reason Comments Blood Product Administration Encounter Details Date Type Department Care Team Description 07/24/2020 Infusion Department of Infusion Janusz Govea [facility]elofibrosis [facility]CC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 documented as of this encounter Last Filed Vital Signs Vital Sign Reading Time Taken Comments Blood Pressure 131/73 07/24/2020 6:59 PM SENIOR SCIENTIST Pulse 83 07/24/2020 6:59 PM SENIOR SCIENTIST Temperature 37 ??C (98.6 ??F) 07/24/2020 6:59 PM SENIOR SCIENTIST Respiratory Rate 18 07/24/2020 6:59 PM SENIOR SCIENTIST Oxygen Saturation - - Inhaled Oxygen Concentration - - Weight - - Height - - Body Mass Index - - documented in this encounter Plan of Treatment Pending Results Name Type Priority Associated Diagnoses Date/Ti me Prepare Red Blood Blood Bank Routine Myelofibrosis (HCC) 05/2021 8:50 AM SENIOR SCIENTIST Cells, 1 Units documented as of this encounter Procedures Procedure Name Priority Date/Time Associated Diagnosis Comme nts TRANSFUSE RED BLOOD Routine 07/24/2020 4:18 PM SENIOR SCIENTIST Myelofibros is (HCC) CELLS PREPARE RED BLOOD CELLS Routine 07/24/2020 8:50 AM SENIOR SCIENTIST Myelofi brosis (HCC) documented in this encounter Results Transfuse Red Blood Cells : (07/24/2020 7:04 PM SENIOR SCIENTIST) Janusz Govea M.B.B.S. BLOOD TRANSFUSION ORDERABLES Transfuse Red Blood Cells : , 1 Units (07/24/2020 7:04 PM SENIOR SCIENTIST) Nasjonathan Ganwing M.B.B.S. BLOOD TRANSFUSION ORDERABLES documented in this encounter Visit Diagnoses Diagnosis Myelofibrosis (HCC) - Primary documented in this encounter Administered Medications Inactive Administered Medications - up to 3 most recent administrations Medication Order MAR Action Action Date Dose Rate Site NaCl 0.9% infusion New Bag 07/24/2020 6:38 PM SENIOR SCIENTIST 150 mL/hr 150 mL/hr 10-250 mL/hr, intravenous, As needed, Post Medications (Hazardous/Low Fluid Volume), Starting on Fri07/24/20 at 1638, Infuse at the same rate as the medication until tubing cleared of medication, then discard. documented in this encounter
--- OUTSIDE RECORDS SUMMARY | 2022-05-02 12:35 | XMS_ITS | Encounter Summary ---
:1970 Author Organization [facility] Address [address] [place] [address] Care Team Providers Name Role Phone Unavailable Primary Care Provider Unavailable Encounter Details Date Type Department Care Team Description 07/24/2020 Documentation Division of Hematology in [place], [place] Jonathon.S. 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 - 07/24/2020 11:15 AM CST I met with Mrs Dobbs at the chemo unit. Reviewed updated consent form for the 1900 clinical trial with [id number]; a GSK3 beta inhibitor in patients with primary myelofibrosis with the patient today. Potential risks and benefits have been discussed along with alternative therapies. The patient has been given an opportunity to review the consent form, and questions have been answered. The patient has agreed to participate in this ongoing clinical trial. The consent form has been signed and dated by the patient in my presence. A copy of the signed consent form has been given to the patient. STACK WEB DEVELOPER documented in 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
--- OUTSIDE RECORDS SUMMARY | 2022-05-02 12:35 | XMS_ITS | Encounter Summary ---
:1970 Author Organization [facility] Address [address] [place] [address] Care Team Providers Name Role Phone Unavailable Primary Care Provider Unavailable Encounter Details Date Type Department Care Team Description 07/13/2020 Orders Only Department of Oncology in Krystina Alberts, CCRP [address] [place] [phone] Social History Tobacco Use Types Packs/Day Years Used Date Smoking Tobacco: Former Smokeless Tobacco: Never Sex Assigned at Date Recorded Female 07/24/2021 11:03 AM 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
--- OUTSIDE RECORDS SUMMARY | 2022-05-02 12:35 | XMS_ITS | Encounter Summary ---
:1970 Author Organization [facility] Address [address] [place] [address] Care Team Providers Name Role Phone Unavailable Primary Care Provider Unavailable Encounter Details Date Type Department Care Team Description 07/24/2020 Clinical Communication Division of Hematology Janusz Govea, in [facility] [place] AlexandraS. [address] [place] [address] [place] [phone] Social History Tobacco Use Types Packs/Day Years Used Date Smoking Tobacco: Former Smokeless Tobacco: Never Sex Assigned at Date Recorded Female 07/24/2021 11:03 AM INSTALLATION & MAINTENANCE EXECUTIVE documented as of this encounter Miscellaneous Notes Telephone Encounter - Mary Ann Shaver R.N. - 07/24/2020 10:08 AM INSTALLATION & MAINTENANCE EXECUTIVE i received a call form results inquiry [...] stress importance to patient she [facility] at 3:15pm today toreceive RBC transfusion. ALLATION & MAINTENANCE EXECUTIVE documented in 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
--- OUTSIDE RECORDS SUMMARY | 2022-05-02 12:36 | XMS_ITS | Encounter Summary ---
:1970 Author Organization [facility] Address [address] [place] [address] Care Team Providers Name Role Phone Unavailable Primary Care Provider Unavailable Reason for Visit Episode Based Medications (Routine) - Closed Specialty Diagnoses / Procedures Referred By Contact Refer red To Contact Medical Oncology / Diagnoses Myelofibrosis (HCC) Janusz Govea Rst Inf Onc [facility] Oncology Procedures ONCBCN INFUSION APPOINTMENT REQUEST 09 ONC THER INF M.B.B.S. [address] [place] [address] [place] [phone] Referral ID Status Reason Start Date Expiration Date Visits Requ ested Visits Authorized [id number] Closed 06/06/2020 06/20/2021 99 30 Encounter Details Date Type Department Care Team Description 06/20/2020 Infusion Department of Oncology Janusz Govea M yelofibrosis (HCC) in [facility] [place] M.B.B.S. 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 documented as of this encounter Last Filed Vital Signs Vital Sign Reading Time Taken Comments Blood Pressure 132/76 06/20/2020 8:59 AM DRAFTER (CAD) ELECTRICAL Pulse 126 06/20/2020 8:59 AM DRAFTER (CAD) ELECTRICAL Temperature 36.7 ??C (98.1 ??F) 06/20/2020 8:59 AM DRAFTER (CAD) ELECTRICAL Respiratory Rate - - Oxygen Saturation - - Inhaled Oxygen Concentration - - Weight 94.4 kg (208 lb 1.8 oz) 06/20/2020 8:59 AM DRAFTER (CAD) ELECTRICAL Height - - Body Mass Index 32.1 06/06/2020 8:02 AM DRAFTER (CAD) ELECTRICAL documented in 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 Administered Medications Inactive Administered Medications - up to 3 most recent administrations Medication Order MAR Action Action Date Dose Rate Site Research IRB [id number] New Bag 06/20/2020 9:41 AM DRAFTER (CAD) ELECTRICAL 850 mg 5 00 mL/hr 850 mg [...] injection 30 mL Given 06/20/2020 12:37 PM DRAFTER (CAD) ELECTRICAL 30 mL 30 mL, intravenous, Once, On Fri06/20/20 at 1115, For 1 dose, Post chemotherapy flush documented in this encounter
--- OUTSIDE RECORDS SUMMARY | 2022-05-02 12:36 | XMS_ITS | Encounter Summary ---
:1970 Author Organization [facility] Address [address] [place] [address] Care Team Providers Name Role Phone Unavailable Primary Care Provider Unavailable Reason for Referral Specialty Diagnoses / Procedures Referred By Contact Refer red To Contact Janusz Govea M.B .B.S. [address] [phone] Referral ID Status Reason Start Date Expiration Date Visits Requ ested Visits Authorized Scheduling Instructions Has standing orders, please call patient with appt time. GN ASSISTANT Encounter Details Date Type Department Care Team Description 07/03/2020 Clinical Communication Division of Hematology Janusz Govea, in [facility] [place] ArringtonB.S. 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
--- OUTSIDE RECORDS SUMMARY | 2022-05-02 12:36 | XMS_ITS | Encounter Summary ---
:1970 Author Organization [facility] Address [address] [place] [address] Care Team Providers Name Role Phone Unavailable Primary Care Provider Unavailable Encounter Details Date Type Department Care Team Description 06/16/2020 Orders Only Division of Hematology in [place], [place] M.H.A. 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
--- OUTSIDE RECORDS SUMMARY | 2022-05-02 12:36 | XMS_ITS | Encounter Summary ---
:1970 Author Organization [facility] Address [address] [place] [address] Care Team Providers Name Role Phone Unavailable Primary Care Provider Unavailable Encounter Details Date Type Department Care Team Description 07/03/2020 Hospital Encounter Department of Gangat, Myelofib rosis (FORMERLY [facility]) Laboratory Medicine [facility], and Pathology, [facility], in [address] [place] [phone] [place], [place] [phone] (Work) [phone] Social History Tobacco Use Types Packs/Day Years Used Date Smoking Tobacco: Former Smokeless Tobacco: Never Sex Assigned at Date Recorded Female 07/24/2021 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 CBC WITH DIFFERENTIAL, B Routine 07/03/2020 7:46 Myelofibrosis (HCC) Results for this AM EMPLOYEE BENEFITS SPECIALIST procedure are i n the results section. TYPE AND SCREEN Routine 07/03/2020 7:46 Myelofibrosis (HCC) Re sults for this AM EMPLOYEE BENEFITS SPECIALIST procedure are i n the results section. URIC ACID, S/P Routine 07/03/2020 7:46 Myelofibrosis (HCC) Res ults for this AM EMPLOYEE BENEFITS SPECIALIST procedure are i n the results section. BUN (BLOOD UREA Routine 07/03/2020 7:46 Myelofibrosis (HCC) Re sults for this NITROGEN), S/P AM EMPLOYEE BENEFITS SPECIALIST procedure are in the results section. ALANINE AMINOTRANSFERASE Routine 07/03/2020 7:46 Myelofibrosis (HCC) Results for this (ALT), S/P AM EMPLOYEE BENEFITS SPECIALIST procedure are i n the results section. ASPARTATE Routine 07/03/2020 7:46 Myelofibrosis (HCC) Resul ts for this AMINOTRANSFERASE (AST), AM EMPLOYEE BENEFITS SPECIALIST proc edure are in S/P the results section. SODIUM, S/P Routine 07/03/2020 7:46 Myelofibrosis (HCC) Resul ts for this AM EMPLOYEE BENEFITS SPECIALIST procedure are i n the results section. PROTEIN, TOTAL, S/P Routine 07/03/2020 7:46 Myelofibrosis (HCC ) Results for this AM EMPLOYEE BENEFITS SPECIALIST procedure are i n the results section. POTASSIUM, S/P Routine 07/03/2020 7:46 Myelofibrosis (HCC) Res ults for this AM EMPLOYEE BENEFITS SPECIALIST procedure are i n the results section. ALKALINE PHOSPHATASE, Routine 07/03/2020 7:46 Myelofibrosis (H CC) Results for this S/P AM EMPLOYEE BENEFITS SPECIALIST procedure are i n the results section. MAGNESIUM, S Routine 07/03/2020 7:46 Myelofibrosis (HCC) Resul ts for this AM EMPLOYEE BENEFITS SPECIALIST procedure are i n the results section. GLUCOSE, RANDOM, S/P Routine 07/03/2020 7:46 Myelofibrosis (HC C) Results for this AM EMPLOYEE BENEFITS SPECIALIST procedure are i n the results section. CREATININE WITH EGFR, Routine 07/03/2020 7:46 Myelofibrosis (H CC) Results for this S/P AM EMPLOYEE BENEFITS SPECIALIST procedure are i n the results section. CHLORIDE, S/P Routine 07/03/2020 7:46 Myelofibrosis (HCC) Resu lts for this AM EMPLOYEE BENEFITS SPECIALIST procedure are i n the results section. CALCIUM, TOT, S/P Routine 07/03/2020 7:46 Myelofibrosis (HCC) Results for this AM EMPLOYEE BENEFITS SPECIALIST procedure are i n the results section. BILIRUBIN, TOT, S/P Routine 07/03/2020 7:46 Myelofibrosis (HCC ) Results for this AM EMPLOYEE BENEFITS SPECIALIST procedure are i n the results section. ALBUMIN, S/P Routine 07/03/2020 7:46 Myelofibrosis (HCC) Resul ts for this AM EMPLOYEE BENEFITS SPECIALIST procedure are i n the results section. documented in this encounter Results (ABNORMAL) Morphology Evaluation (Special Smear) (07/03/2020 7:46 AM EMPLOYEE BENEFITS SPECIALIST) [facility] gist Method Time Signature Neutrophilic Segs 85 (H) 50 - 75 % 07/03/2020 DHPM and Bands 9:30 AM EMPLOYEE BENEFITS SPECIALIST Lymphocytes 6 (L) 18 - 42 % 07/03/2020 DHPM 9:30 AM EMPLOYEE BENEFITS SPECIALIST Monocytes 4 2 - 11 % 07/03/2020 DHPM 9:30 AM EMPLOYEE BENEFITS SPECIALIST Basophils 1 0 - 2 % 07/03/2020 DHPM 9:30 AM EMPLOYEE BENEFITS SPECIALIST Metamyelocytes 3 (H) <1 % 07/03/2020 DHPM 9:30 AM EMPLOYEE BENEFITS SPECIALIST Myelocytes 1 (H) <0.5 % 07/03/2020 DHPM 9:30 AM EMPLOYEE BENEFITS SPECIALIST Nucleated RBC 3 /100 WBC 07/03/2020 DHPM 9:30 AM EMPLOYEE BENEFITS SPECIALIST Manual Absolute 2.81 1.56 - 07/03/2020 DHPM Neutrophil Count 6.45 9:30 AM EMPLOYEE BENEFITS SPECIALIST x10(9)/L Comment: ----ADDITIONAL INFORMATION---- The manual absolute neutrophil count is derived from a manual differential count and therefore is not exactly comparable to the automated absolute halie trophil count. Specimen Anatomical Collection Method Collection Time Receive d Time (Source) Location / / Volume Laterality Blood 07/03/2020 7:46 AM 0 8:16 EMPLOYEE BENEFITS SPECIALIST AM EMPLOYEE BENEFITS SPECIALIST Janusz ArringtonB.S. LAB BLOOD ADD-ON Performing Organization Address City/[facility] Phon e Number [facility] - 200 [place], [place] [address] [place] [address] Laboratories[address] Type and Screen (with reflex Antibody ID) (07/03/2020 7:46 AM EMPLOYEE BENEFITS SPECIALIST) Patholo gist Method Time Signature ABORh A Pos Not 07/03/2020 ETRM applicable 9:23 AM EMPLOYEE BENEFITS SPECIALIST Antibody Negative Negative 07/03/2020 ETRM Screen 9:35 AM EMPLOYEE BENEFITS SPECIALIST Type & Screen 07/06/2020 07/03/2020 ETRM Expiration 23:59 9:23 AM EMPLOYEE BENEFITS SPECIALIST Testing [place] DEFAULT 07/03/2020 ETRM Location 8:18 AM EMPLOYEE BENEFITS SPECIALIST Specimen Anatomical Collection Method Collection Time Receive d Time (Source) Location / / Volume Laterality Blood (Blood, 07/03/2020 7:46 AM 07/03/20 20 8:18 Venous) EMPLOYEE BENEFITS SPECIALIST AM EMPLOYEE BENEFITS SPECIALIST Janusz ArringtonB.S. LAB BLOOD BANK TEST ORDERABL ES Performing Organization Address [facility] Phon e Number [facility] - 200 [place], [place] [address] [facility] [place] [address] [address] Protein, Total (07/03/2020 7:46 AM EMPLOYEE BENEFITS SPECIALIST) P athologist Signature Protein, Total, 6.3 6.3 - 7.9 07/03/2020 DTL S g/dL 9:00 AM EMPLOYEE BENEFITS SPECIALIST Specimen Anatomical Collection Method Collection Time Receive d Time (Source) Location / / Volume Laterality Blood (Blood, 07/03/2020 7:46 AM 07/03/20 20 8:15 Venous) EMPLOYEE BENEFITS SPECIALIST AM EMPLOYEE BENEFITS SPECIALIST Janusz ArringtonB.S. LAB BLOOD ADD-ON Performing Organization Address City/[facility] Phon e Number [facility] - [address] [place], [place] [address] [place] [address] Albumin (07/03/2020 7:46 AM EMPLOYEE BENEFITS SPECIALIST) athologist Signature Albumin, S 4.4 3.5 - 5.0 07/03/2020 DTL g/dL 9:00 AM EMPLOYEE BENEFITS SPECIALIST Specimen Anatomical Collection Method Collection Time Receive d Time (Source) Location / / Volume Laterality Blood (Blood, 07/03/2020 7:46 AM 07/03/20 8:15 Venous) EMPLOYEE BENEFITS SPECIALIST AM EMPLOYEE BENEFITS SPECIALIST Nasjonathan Mcdonaldgat M.B.B.S. LAB BLOOD ADD-ON Performing Organization Address City/[facility] Phon e Number [facility] - [phone] [place] [address] Glucose, Random (07/03/2020 7:46 AM EMPLOYEE BENEFITS SPECIALIST) athologist Signature Glucose, S 133 70 - 140 07/03/2020 DTL mg/dL 9:00 AM EMPLOYEE BENEFITS SPECIALIST Specimen Anatomical Collection Method Collection Time Receive d Time (Source) Location / / Volume Laterality Blood (Blood, 07/03/2020 7:46 AM 07/03/20 8:15 Venous) EMPLOYEE BENEFITS SPECIALIST AM EMPLOYEE BENEFITS SPECIALIST Janusz Govea M.B.B.S. LAB BLOOD TROPONIN Performing Organization Address City/[facility]/ZIP [facility] Phon e Number [facility] - 200 [place] [address] 05 [place] [address] Uric Acid (07/03/2020 7:46 AM EMPLOYEE BENEFITS SPECIALIST) athologist Signature Uric Acid, S 4.2 2.7 - 6.1 07/03/2020 DTL mg/dL 9:00 AM EMPLOYEE BENEFITS SPECIALIST Specimen Anatomical Collection Method Collection Time Receive d Time (Source) Location / / Volume Laterality Blood (Blood, 07/03/2020 7:46 AM 07/03/20 8:15 Venous) EMPLOYEE BENEFITS SPECIALIST AM EMPLOYEE BENEFITS SPECIALIST Naseema Gangat M.B.B.S. LAB BLOOD ADD-ON Performing Organization Address City/State/ZIP Code Phon e Number [facility] - [address] [place], [place] [address] [place] [address] Creatinine with Estimated GFR (07/03/2020 7:46 AM EMPLOYEE BENEFITS SPECIALIST) athologist Signature Creatinine 1.02 0.59 - 07/03/2020 DTL 1.04 mg/dL 9:00 AM EMPLOYEE BENEFITS SPECIALIST eGFR-Non 63 >=60 07/03/2020 DTL Black/ mL/min/BSA 9:00 AM EMPLOYEE BENEFITS SPECIALIST Maltese Comment: ----ADDITIONAL INFORMATION---- Estimated GFR calculated using the 2009 CKD_EPI creatinine equation. eGFR-Black/ 73 >=60 mL/min/BSA 2019 9:00 AM EMPLOYEE BENEFITS SPECIALIST DTL Comment: ----ADDITIONAL INFORMATION---- Estimated GFR calculated using the 2009 CKD_EPI creatinine equation. Specimen Anatomical Collection Method Collection Time Receive d Time (Source) Location / / Volume Laterality Blood (Blood, 07/03/2020 7:46 AM 07/03/20 8:15 Venous) EMPLOYEE BENEFITS SPECIALIST AM EMPLOYEE BENEFITS SPECIALIST Janusz Dillon.Cain.B.S. LAB BLOOD ADD-ON Performing Organization Address City/State/ZIP Code Phon e Number [facility] - [address] [place] [address] [place] [address] [facility] [address] BUN (Blood Urea Nitrogen) (07/03/2020 7:46 AM EMPLOYEE BENEFITS SPECIALIST) athologist Signature BUN (Blood Urea 20 6 - 21 07/03/2020 DTL Nitrogen), S mg/dL 9:00 AM EMPLOYEE BENEFITS SPECIALIST Specimen Anatomical Collection Method Collection Time Receive d Time (Source) Location / / Volume Laterality Blood (Blood, 07/03/2020 7:46 AM 07/03/20 8:15 Venous) EMPLOYEE BENEFITS SPECIALIST AM EMPLOYEE BENEFITS SPECIALIST Janusz Govea M.B.B.S. LAB BLOOD ADD-ON Performing Organization Address City/State/ZIP Code Phon e Number [facility] - [address] [place] [address] [place] [address] [facility] [address] Bilirubin, Total (07/03/2020 7:46 AM EMPLOYEE BENEFITS SPECIALIST) athologist Signature Bilirubin, 0.6 <=1.2 mg/dL 07/03/2020 DTL Total, S 9:00 AM EMPLOYEE BENEFITS SPECIALIST Specimen Anatomical Collection Method Collection Time Receive d Time (Source) Location / / Volume Laterality Blood (Blood, 07/03/2020 7:46 AM 07/03/20 8:15 Venous) EMPLOYEE BENEFITS SPECIALIST AM EMPLOYEE BENEFITS SPECIALIST Nasjonathan Mcdonaldgat M.B.B.S. LAB BLOOD ADD-ON Performing Organization Address City/State/[facility] Phon e Number [facility] - [address] 200 [facility] Calcium, Total (07/03/2020 7:46 AM EMPLOYEE BENEFITS SPECIALIST) athologist Signature Calcium, Total, 8.6 8.6 - 10.0 07/03/2020 DTL S mg/dL 9:00 AM EMPLOYEE BENEFITS SPECIALIST Specimen Anatomical Collection Method Collection Time Receive d Time (Source) Location / / Volume Laterality Blood (Blood, 07/03/2020 7:46 AM 07/03/20 8:15 Venous) EMPLOYEE BENEFITS SPECIALIST AM EMPLOYEE BENEFITS SPECIALIST Nasjonathan Gangat M.B.B.S. LAB BLOOD ADD-ON Performing Organization Address City/[facility] Phon e Number [facility] - [address] (ABNORMAL) Chloride (07/03/2020 7:46 AM EMPLOYEE BENEFITS SPECIALIST) athologist Signature Chloride, S 109 (H) 98 - 107 07/03/2020 DTL mmol/L 9:00 AM EMPLOYEE BENEFITS SPECIALIST Specimen Anatomical Collection Method Collection Time Receive d Time (Source) Location / / Volume Laterality Blood (Blood, 07/03/2020 7:46 AM 07/03/20 8:15 Venous) EMPLOYEE BENEFITS SPECIALIST AM EMPLOYEE BENEFITS SPECIALIST Nasbaltazarma Harrygat M.B.B.S. LAB BLOOD ADD-ON Performing Organization Address City/[facility] Phon e Number [facility] - [address] [address] [facility] [address] Magnesium (07/03/2020 7:46 AM EMPLOYEE BENEFITS SPECIALIST) athologist Signature Magnesium, S 2.0 1.7 - 2.3 07/03/2020 DTL mg/dL 9:00 AM EMPLOYEE BENEFITS SPECIALIST Specimen Anatomical Collection Method Collection Time Receive d Time (Source) Location / / Volume Laterality Blood (Blood, 07/03/2020 7:46 AM 07/03/20 20 8:15 Venous) EMPLOYEE BENEFITS SPECIALIST AM EMPLOYEE BENEFITS SPECIALIST Naseema Gangat M.B.B.S. LAB BLOOD ADD-ON Performing Organization Address City/[facility]/ZIP [facility] Phon e Number [facility] [address] [address] [facility] [address] Potassium (07/03/2020 7:46 AM EMPLOYEE BENEFITS SPECIALIST) athologist Signature Potassium, S 4.1 3.6 - 5.2 07/03/2020 DTL mmol/L 9:00 AM EMPLOYEE BENEFITS SPECIALIST Specimen Anatomical Collection Method Collection Time Receive d Time (Source) Location / / Volume Laterality Blood (Blood, 07/03/2020 7:46 AM 07/03/20 8:15 Venous) EMPLOYEE BENEFITS SPECIALIST AM EMPLOYEE BENEFITS SPECIALIST Naseema Gangat M.B.B.S. LAB BLOOD ADD-ON Performing Organization Address City/State/ZIP Code Phon e Number [facility] - [address] [address] [facility] [address] Sodium (07/03/2020 7:46 AM EMPLOYEE BENEFITS SPECIALIST) athologist Signature Sodium, S 144 135 - 145 07/03/2020 9:00 DTL mmol/L AM EMPLOYEE BENEFITS SPECIALIST Specimen Anatomical Collection Method Collection Time Receive d Time (Source) Location / / Volume Laterality Blood (Blood, 07/03/2020 7:46 AM 07/03/20 20 8:15 Venous) EMPLOYEE BENEFITS SPECIALIST AM EMPLOYEE BENEFITS SPECIALIST Naseema Gangat M.B.B.S. LAB BLOOD ADD-ON Performing Organization Address City/State/ZIP Code Phon e Number [facility] - [address] [address] [facility] [address] Alkaline Phosphatase (07/03/2020 7:46 AM EMPLOYEE BENEFITS SPECIALIST) P athologist Signature Alkaline 46 35 - 104 07/03/2020 DTL Phosphatase, S U/L 9:00 AM EMPLOYEE BENEFITS SPECIALIST Specimen Anatomical Collection Method Collection Time Receive d Time (Source) Location / / Volume Laterality Blood (Blood, 07/03/2020 7:46 AM 07/03/20 8:15 Venous) EMPLOYEE BENEFITS SPECIALIST AM EMPLOYEE BENEFITS SPECIALIST Janusz Govea M.B.B.S. LAB BLOOD ADD-ON Performing Organization Address City/[facility]/ZIP Code Phon e Number [facility] - [address] [address] [facility] [address] AST (Aspartate Aminotransferase) (07/03/2020 7:46 AM EMPLOYEE BENEFITS SPECIALIST) [facility] gist Method Time Signature Aspartate 29 8 - 43 07/03/2020 DTL Aminotransferase U/L 9:00 AM EMPLOYEE BENEFITS SPECIALIST (AST), S Specimen Anatomical Collection Method Collection Time Receive d Time (Source) Location / / Volume Laterality Blood (Blood, 07/03/2020 7:46 AM 07/03/20 8:15 Venous) EMPLOYEE BENEFITS SPECIALIST AM EMPLOYEE BENEFITS SPECIALIST Janusz Dillon.B.B.S. LAB BLOOD ADD-ON Performing Organization Address City/State/ZIP Code Phon e Number [facility] - [address] [place] [address] [place] [address] [facility] [address] ALT (Alanine Aminotransferase) (07/03/2020 7:46 AM EMPLOYEE BENEFITS SPECIALIST) [facility] Method Time Signature Alanine 15 7 - 45 07/03/2020 DTL Aminotransferase U/L 9:00 AM EMPLOYEE BENEFITS SPECIALIST (ALT), S Specimen Anatomical Collection Method Collection Time Receive d Time (Source) Location / / Volume Laterality Blood (Blood, 07/03/2020 7:46 AM 07/03/20 20 8:15 Venous) EMPLOYEE BENEFITS SPECIALIST AM EMPLOYEE BENEFITS SPECIALIST Janusz Govea M.B.B.S. LAB BLOOD ADD-ON Performing Organization Address City/State/ZIP Code Phon e Number [facility] - [address] [place] [address] [facility] [place] [address] Laboratories-[facility] 200 [facility] (ABNORMAL) CBC with Differential, Blood (07/03/2020 7:46 AM EMPLOYEE BENEFITS SPECIALIST) [facility] Method Time Signature Hemoglobin 6.9 (L) 11.6 - 07/03/2020 DTL 15.0 g/dL 8:30 AM EMPLOYEE BENEFITS SPECIALIST Hematocrit 22.1 (L) 35.5 - 07/03/2020 DTL 44.9 % 8:30 AM EMPLOYEE BENEFITS SPECIALIST Erythrocytes 2.45 (L) 3.92 - 07/03/2020 DTL 5.13 8:30 AM EMPLOYEE BENEFITS SPECIALIST x10(12)/L MCV 90.2 78.2 - 07/03/2020 DTL 97.9 fL 8:30 AM EMPLOYEE BENEFITS SPECIALIST RBC Distrib Width 25.9 (H) 12.2 - 07/03/2020 DTL 16.1 % 8:30 AM EMPLOYEE BENEFITS SPECIALIST Platelet Count 136 (L) 157 - 371 07/03/2020 DTL x10(9)/L 8:30 AM EMPLOYEE BENEFITS SPECIALIST Leukocytes 3.3 (L) 3.4 - 9.6 07/03/2020 DTL x10(9)/L 9:30 AM EMPLOYEE BENEFITS SPECIALIST Comment: Results confirmed by smear. Neutrophils SeeComment 1.56 - 6.45 x10(9)/L 07/03/2020 9:30 AM EMPLOYEE BENEFITS SPECIALIST DTL Comment: Auto-diff results not valid. Se e manual differential. Specimen Anatomical Collection Method Collection Time Receive d Time (Source) Location / / Volume Laterality Blood (Blood, 07/03/2020 7:46 AM 07/03/20 20 8:16 Venous) EMPLOYEE BENEFITS SPECIALIST AM EMPLOYEE BENEFITS SPECIALIST Janusz Ardon LAB BLOOD ADD-ON Performing Organization Address City/State/ZIP Code Phon e Number [facility] - [address] [place] [address] [facility] [place] [address] [facility] 200 [facility] documented in this encounter Visit Diagnoses Diagnosis Myelofibrosis (HCC) documented in this encounter
--- OUTSIDE RECORDS SUMMARY | 2022-05-02 12:36 | XMS_ITS | Encounter Summary ---
:1970 Author Organization [facility] Address [address] [place] [address] Care Team Providers Name Role Phone Unavailable Primary Care Provider Unavailable Reason for Visit Episode Based Medications (Routine) - Closed Specialty Diagnoses / Procedures Referred By Contact Refer red To Contact Medical Oncology / Diagnoses Myelofibrosis (HCC) Janusz Govea Rst Inf Onc Rogo Oncology Procedures ONCBCN INFUSION APPOINTMENT REQUEST 09 ONC THER INF M.B.B.S. 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 documented as of this encounter Last Filed Vital Signs Vital Sign Reading Time Taken Comments Blood Pressure 130/77 06/23/2020 12:50 PM RESEARCH WORKER ENCYCLOPEDIA Pulse 69 06/23/2020 9:12 AM RESEARCH WORKER ENCYCLOPEDIA Temperature 36.5 ??C (97.7 ??F) 06/23/2020 12:50 PM RESEARCH WORKER ENCYCLOPEDIA Respiratory Rate 20 06/23/2020 12:50 PM RESEARCH WORKER ENCYCLOPEDIA Oxygen Saturation 98% 06/23/2020 12:50 PM RESEARCH WORKER ENCYCLOPEDIA Inhaled Oxygen Concentration - - Weight 96 kg (211 lb 10.3 oz) 06/23/2020 9:12 AM RESEARCH WORKER ENCYCLOPEDIA Height - - Body Mass Index 32.64 06/06/2020 8:02 AM RESEARCH WORKER ENCYCLOPEDIA documented in 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 Administered Medications Inactive Administered Medications - up to 3 most recent administrations Medication Order MAR Action Action Date Dose Rate Site Research IRB [id number] New Bag 06/23/2020 9:53 AM RESEARCH WORKER ENCYCLOPEDIA 850 mg 5 00 mL/hr 9-- 850 [...] injection 30 mL Given 06/23/2020 12:45 PM RESEARCH WORKER ENCYCLOPEDIA 30 mL 30 mL, intravenous, Once, On Fri06/23/20 at 1145, For 1 dose, Post chemotherapy flush documented in this encounter
--- OUTSIDE RECORDS SUMMARY | 2022-05-02 12:36 | XMS_ITS | Encounter Summary ---
:1970 Author Organization [facility] Address [address] [place] [address] Care Team Providers Name Role Phone Unavailable Primary Care Provider Unavailable Encounter Details Date Type Department Care Team Description 06/20/2020 Orders Only Division of Hematology Janusz Govea M yelofibrosis (HCC) in [facility] 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
--- OUTSIDE RECORDS SUMMARY | 2022-05-02 12:36 | XMS_ITS | Encounter Summary ---
:[address] [facility] Address [address] [place] [address] Care Team Providers Name Role Phone Unavailable Primary Care Provider Unavailable Encounter Details Date Type Department Care Team Description 07/03/2020 Hospital Encounter Department of Gangat, Myelofib rosis ([facility]) Laboratory Medicine [facility], and Pathology, [facility], in [address] [place] [phone] [place], [place] [phone] (Work) [phone] Social History Tobacco Use Types Packs/Day Years Used Date Smoking Tobacco: Former Smokeless Tobacco: Never Sex Assigned at Date Recorded Female 07/24/2021 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 documented in this encounter Results Test, Qualitative, Urine (07/03/2020 8:43 AM CRANE OPERATOR CAB) P athologist Signature Negative 07/03/2020 TUNDE Test, U 8:56 AM CRANE OPERATOR CAB Specimen Anatomical Collection Method Collection Time Receive d Time (Source) Location / / Volume Laterality Urine (Urine, 07/03/2020 8:43 AM 07/03/20 8:43 Clean Catch) CRANE OPERATOR CAB AM CRANE OPERATOR CAB Janusz Ardon LAB URINE ORDERABLES Performing Organization Address City/State/ZIP Code Phon e Number [facility] - [address] [place], [place] [address] [facility] [place] [address] Laboratories-[facility] [address] documented in this encounter Visit Diagnoses Diagnosis Myelofibrosis (HCC) documented in this encounter
--- OUTSIDE RECORDS SUMMARY | 2022-05-02 12:36 | XMS_ITS | Encounter Summary ---
:1970 Author Organization [facility] Address [address] [place] [address] Care Team Providers Name Role Phone Unavailable Primary Care Provider Unavailable Reason for Visit Outpatient (Routine) - Closed Specialty Diagnoses / Procedures Referred By Contact Refer red To Contact Hematology Oncology Diagnoses Myelofibrosis (HCC) [facility] M.B.B.S. [address] [place] [phone] Referral ID Status Reason Start Date Expiration Date Visits Requ ested Visits Authorized [id number] Closed 06/16/2020 06/16/2021 1 1 Encounter Details Date Type Department Care Team Description 07/03/2020 Office Visit Division of Hematology [facility], Myelo fibrosis (HCC) in [facility] (Primary Dx) [place] M.B.B.S. 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 documented as of this encounter Last Filed Vital Signs Vital Sign Reading Time Taken Comments Blood Pressure 131/78 07/03/2020 9:03 AM CREATIVE SERVICES PRODUCER Pulse 78 07/03/2020 9:03 AM CREATIVE SERVICES PRODUCER Temperature 36.3 ??C (97.3 ??F) 07/03/2020 9:03 AM CREATIVE SERVICES PRODUCER Respiratory Rate - - Oxygen Saturation - - Inhaled Oxygen Concentration - - Weight 95 kg (209 lb 7 oz) 07/03/2020 9:03 AM CREATIVE SERVICES PRODUCER Height 169 cm (5' 6.54) 07/03/2020 9:03 AM CREATIVE SERVICES PRODUCER Body Mass Index 33.26 07/03/2020 9:03 AM CREATIVE SERVICES PRODUCER documented in this encounter Progress Notes Janusz [...] month. Reva Foreman CT CT Job ID: [id number] TIVE SERVICES PRODUCER documented in this encounter Miscellaneous Notes Addendum Note - Zita Corona - 07/03/2020 9:30 AM CREATIVE SERVICES PRODUCER Addended by: ZITA CORONA on: 07/17/2020 10:49 AM Modules accepted: Orders TIVE SERVICES PRODUCER documented in 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
--- OUTSIDE RECORDS SUMMARY | 2022-05-02 12:36 | XMS_ITS | Encounter Summary ---
:1970 Author Organization [facility] Address [address] [place] [address] Care Team Providers Name Role Phone Unavailable Primary Care Provider Unavailable Encounter Details Date Type Department Care Team Description 07/04/2020 Clinical Communication Division of Hematology Janusz Govea, in [facility] Murphy[facility] 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 - 07/04/2020 2:56 PM DESIGN PROJECT MANAGER Patient is scheduled for transfusion at 3:15 pm today, can we let Dr. Govea know she did go? Thanks. GN PROJECT MANAGER documented in 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
--- OUTSIDE RECORDS SUMMARY | 2022-05-02 12:36 | XMS_ITS | Encounter Summary ---
:1970 Author Organization [facility] Address [address] [place] [address] Care Team Providers Name Role Phone Unavailable Primary Care Provider Unavailable Encounter Details Date Type Department Care Team Description 06/26/2020 Clinical Communication Division of Hematology Janusz Govea, in [facility] MGalina.B.S. 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
--- OUTSIDE RECORDS SUMMARY | 2022-05-02 12:36 | XMS_ITS | Encounter Summary ---
:1970 Author Organization [facility] Address [address] [place] [address] Care Team Providers Name Role Phone Unavailable Primary Care Provider Unavailable Encounter Details Date Type Department Care Team Description 06/20/2020 Clinical Communication Division of Hematology Janusz Govea, in [facility] milton ArringtonB.SZahraa [address] [place] [address] [place] [phone] Social History Tobacco Use Types Packs/Day Years Used Date Smoking Tobacco: Former Smokeless Tobacco: Never Sex Assigned at Date Recorded Female 07/24/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 documented as of this encounter Plan of Treatment Not on filedocumented as of this encounter Results Type and Screen (with reflex Antibody ID) (06/20/2020 8:04 AM VOCATIONAL REHABILITATION COUNSELOR) [facility] Method Time Signature ABORh A Pos Not 06/20/2020 ETRM applicable 11:00 AM VOCATIONAL REHABILITATION COUNSELOR Antibody Negative Negative 06/20/2020 ETRM Screen 11:07 AM VOCATIONAL REHABILITATION COUNSELOR Type & Screen 06/23/2020 06/20/2020 ETRM Expiration 23:59 11:00 AM VOCATIONAL REHABILITATION COUNSELOR Testing Ione DEFAULT 06/20/2020 ETRM Location 10:15 AM VOCATIONAL REHABILITATION COUNSELOR Specimen Anatomical Collection Method Collection Time Receive d Time (Source) Location / / Volume Laterality Blood (Blood, 06/20/2020 8:04 AM 06/20/20 20 Venous) VOCATIONAL REHABILITATION COUNSELOR 10:15 AM VOCATIONAL REHABILITATION COUNSELOR Janusz ArringtonB.S. LAB BLOOD BANK TEST ORDERABL ES Performing Organization Address City/State/ZIP Code Phon e Number [facility] - [address] [place], [place] [address] [facility] [address] Laboratories-[facility] [address] documented in this encounter Visit Diagnoses Diagnosis Myelofibrosis (HCC) - Primary documented in this encounter
--- OUTSIDE RECORDS SUMMARY | 2022-05-02 12:36 | XMS_ITS | Encounter Summary ---
:1970 Author Organization [facility] Address [address] [place] [address] Care Team Providers Name Role Phone Unavailable Primary Care Provider Unavailable Reason for Visit Reason Comments Blood Product Administration Encounter Details Date Type Department Care Team Description 06/20/2020 Infusion Department of Infusion Janusz Govea M yelofibrorachana (HCC) 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 encounter Last Filed Vital Signs Vital Sign Reading Time Taken Comments Blood Pressure 134/70 06/20/2020 6:28 PM BARREL BURNER Pulse 70 06/20/2020 6:28 PM BARREL BURNER Temperature 36.9 ??C (98.4 ??F) 06/20/2020 6:28 PM BARREL BURNER Respiratory Rate 18 06/20/2020 6:28 PM BARREL BURNER Oxygen Saturation - - Inhaled Oxygen Concentration - - Weight - - Height - - Body Mass Index - - documented in this encounter Plan of Treatment Pending Results Name Type Priority Associated Diagnoses Date/Ti me Prepare Red Blood Blood Bank Routine Myelofibrosis (HCC) 02/2020 8:04 AM BARREL BURNER Cells, 2 Units documented as of this encounter Procedures Procedure Name Priority Date/Time Associated Diagnosis Comme nts TRANSFUSE RED BLOOD Routine 06/20/2020 4:04 PM BARREL BURNER Myelofibros is (HCC) CELLS TRANSFUSE RED BLOOD Routine 06/20/2020 1:59 PM BARREL BURNER Myelofibros is (HCC) CELLS PREPARE RED BLOOD CELLS Routine 06/20/2020 8:04 AM BARREL BURNER Myelofi brosis (HCC) documented in this encounter Results Transfuse Red Blood Cells : (06/20/2020 7:13 PM BARREL BURNER) Naseema Gangat M.B.B.S. BLOOD TRANSFUSION ORDERABLES Transfuse Red Blood Cells : , 2 Units (06/20/2020 7:13 PM BARREL BURNER) Naseema Gangat M.B.B.S. BLOOD TRANSFUSION ORDERABLES Transfuse Red Blood Cells : (06/20/2020 4:04 PM BARREL BURNER) Naseema Gangat M.B.B.S. BLOOD TRANSFUSION ORDERABLES documented in this encounter Visit Diagnoses Diagnosis Myelofibrosis (HCC) - Primary documented in this encounter Administered Medications Inactive Administered Medications - up to 3 most recent administrations Medication Order MAR Action Action Date Dose Rate Site NaCl 0.9% infusion New Bag 06/20/2020 6:12 PM BARREL BURNER 180 mL/hr 180 mL/hr 20-500 mL/hr, intravenous, As needed, Between Unit of Blood Products, Starting on 06/20/20 at 1345, Infuse at the same rate as the blood infusion until tubing cleared. Nurse may reduce rate to 20 mL/hour or as otherwise directed until next blood infusion arrives then discontinue when infusion complete. sodium chloride 0.9 % injection 3 mL Given 06/20/2020 6:29 PM BARREL BURNER 3 mL 3 mL, intra-catheter, As needed, line care, Starting on 06/20/20 at 1345, Prior to and following infusion and between multiple consecutive infusions. documented in this encounter
--- OUTSIDE RECORDS SUMMARY | 2022-05-02 12:36 | XMS_ITS | Encounter Summary ---
:[address] [facility] Address [address] [place] [address] Care Team Providers Name Role Phone Unavailable Primary Care Provider Unavailable Reason for Visit Episode Based Medications (Routine) - Closed Specialty Diagnoses / Procedures Referred By Contact Refer red To Contact Medical Oncology / Diagnoses Myelofibrosis (HCC) Janusz Govea Rst Inf Onc Rogo Oncology Procedures ONCBCN INFUSION APPOINTMENT REQUEST 09 ONC THER INF M.B.B.S. 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 documented as of this encounter Last Filed Vital Signs Vital Sign Reading Time Taken Comments Blood Pressure 148/72 07/06/2020 9:45 AM ACQUISITIONS ASSISTANT Pulse 105 07/06/2020 9:45 AM ACQUISITIONS ASSISTANT Temperature 36 ??C (96.8 ??F) 07/06/2020 9:45 AM ACQUISITIONS ASSISTANT Respiratory Rate - - Oxygen Saturation - - Inhaled Oxygen Concentration - - Weight 94.6 kg (208 lb 8.9 oz) 07/06/2020 9:45 AM ACQUISITIONS ASSISTANT Height - - Body Mass Index 33.12 07/03/2020 9:03 AM ACQUISITIONS ASSISTANT documented in 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 Administered Medications Inactive Administered Medications - up to 3 most recent administrations Medication Order MAR Action Action Date Dose Rate Site Research IRB [id number] New Bag 07/06/2020 10:37 AM ACQUISITIONS ASSISTANT 1,130 mg 500 mL/hr 1,130 mg in NaCl 0.9% (non-PVC) 1,113 mL IVPB 1,130 mg (rounded from 1,132.12 mg = 12.4 mg/kg ? 91.3 kg Order-specific weight), intravenous, at 500 mL/hr, Once, On [facility] 07/06/20 at 1000, For 1 dose, CSTDs cannot be used. Flush with 30ml at IV site following completion of . Monitor BP (pre dose & post dose), HR, temp, resp (pre-dose and as clinically indicated). Administer using 1.2 micron filter tubing via a peripheral or central line. sodium chloride (flush) 0.9 % injection 30 mL Given 07/06/2020 1:45 PM ACQUISITIONS ASSISTANT 30 mL 30 mL, intravenous, Once, On [facility] 07/06/20 at 1000, For 1 dose, Post chemotherapy flush documented in this encounter
--- OUTSIDE RECORDS SUMMARY | 2022-05-02 12:36 | XMS_ITS | Encounter Summary ---
:1970 Author Organization [facility] Address [address] [place] [address] Care Team Providers Name Role Phone Unavailable Primary Care Provider Unavailable Encounter Details Date Type Department Care Team Description 06/20/2020 Hospital Encounter Department of Gangat, Myelofib rosis ([facility]) Laboratory Medicine [facility], and Pathology, [facility], in [address] [place] [phone] [place], [place] [phone] (Work) [phone] Social History Tobacco Use Types Packs/Day Years Used Date Smoking Tobacco: Former Smokeless Tobacco: Never Sex Assigned at Date Recorded Female 07/24/2021 11:03 AM PURCHASE REQUEST EDITOR documented as of this encounter Medications at [...] Routine 06/20/2020 8:08 Results for this AM PURCHASE REQUEST EDITOR procedure are i n the results section. CBC WITH DIFFERENTIAL, B Routine 06/20/2020 8:08 Myelofibrosis (HCC) Results for this AM PURCHASE REQUEST EDITOR procedure are i n the results section. URIC ACID, S/P Routine 06/20/2020 8:08 Myelofibrosis (HCC) Res ults for this AM PURCHASE REQUEST EDITOR procedure are i n the results section. BUN (BLOOD UREA Routine 06/20/2020 8:08 Myelofibrosis (HCC) Re sults for this NITROGEN), S/P AM PURCHASE REQUEST EDITOR procedure are in the results section. ALANINE AMINOTRANSFERASE Routine 06/20/2020 8:08 Myelofibrosis (HCC) Results for this (ALT), S/P AM PURCHASE REQUEST EDITOR procedure are i n the results section. ASPARTATE Routine 06/20/2020 8:08 Myelofibrosis (HCC) Resul ts for this AMINOTRANSFERASE (AST), AM PURCHASE REQUEST EDITOR proc edure are in S/P the results section. SODIUM, S/P Routine 06/20/2020 8:08 Myelofibrosis (HCC) Resul ts for this AM PURCHASE REQUEST EDITOR procedure are i n the results section. PROTEIN, TOTAL, S/P Routine 06/20/2020 8:08 Myelofibrosis (HCC ) Results for this AM PURCHASE REQUEST EDITOR procedure are i n the results section. POTASSIUM, S/P Routine 06/20/2020 8:08 Myelofibrosis (HCC) Res ults for this AM PURCHASE REQUEST EDITOR procedure are i n the results section. ALKALINE PHOSPHATASE, Routine 06/20/2020 8:08 Myelofibrosis (H CC) Results for this S/P AM PURCHASE REQUEST EDITOR procedure are i n the results section. MAGNESIUM, S Routine 06/20/2020 8:08 Myelofibrosis (HCC) Resul ts for this AM PURCHASE REQUEST EDITOR procedure are i n the results section. GLUCOSE, RANDOM, S/P Routine 06/20/2020 8:08 Myelofibrosis (HC C) Results for this AM PURCHASE REQUEST EDITOR procedure are i n the results section. CREATININE WITH EGFR, Routine 06/20/2020 8:08 Myelofibrosis (H CC) Results for this S/P AM PURCHASE REQUEST EDITOR procedure are i n the results section. CHLORIDE, S/P Routine 06/20/2020 8:08 Myelofibrosis (HCC) Resu lts for this AM PURCHASE REQUEST EDITOR procedure are i n the results section. CALCIUM, TOT, S/P Routine 06/20/2020 8:08 Myelofibrosis (HCC) Results for this AM PURCHASE REQUEST EDITOR procedure are i n the results section. BILIRUBIN, TOT, S/P Routine 06/20/2020 8:08 Myelofibrosis (HCC ) Results for this AM PURCHASE REQUEST EDITOR procedure are i n the results section. ALBUMIN, S/P Routine 06/20/2020 8:08 Myelofibrosis (HCC) Resul ts for this AM PURCHASE REQUEST EDITOR procedure are i n the results section. documented in this encounter Results (ABNORMAL) Morphology Evaluation (Special Smear) (06/20/2020 8:08 AM PURCHASE REQUEST EDITOR) [facility] gist Method Time Signature Neutrophilic Segs 88 (H) 50 - 75 % 06/20/2020 DHPM and Bands 9:43 AM PURCHASE REQUEST EDITOR Lymphocytes 6 (L) 18 - 42 % 06/20/2020 DHPM 9:43 AM PURCHASE REQUEST EDITOR Monocytes 3 2 - 11 % 06/20/2020 DHPM 9:43 AM PURCHASE REQUEST EDITOR Eosinophils 1 1 - 3 % 06/20/2020 DHPM 9:43 AM PURCHASE REQUEST EDITOR Metamyelocytes 1 (H) <1 % 06/20/2020 DHPM 9:43 AM PURCHASE REQUEST EDITOR Myelocytes 1 (H) <0.5 % 06/20/2020 DHPM 9:43 AM PURCHASE REQUEST EDITOR Nucleated RBC 5 /100 WBC 06/20/2020 DHPM 9:43 AM PURCHASE REQUEST EDITOR Manual Absolute 2.29 1.56 - 06/20/2020 DHPM Neutrophil Count 6.45 9:43 AM PURCHASE REQUEST EDITOR x10(9)/L Comment: ----ADDITIONAL INFORMATION---- The manual absolute neutrophil count is derived from a manual differential count and therefore is not exactly comparable to the automated absolute halie trophil count. Specimen Anatomical Collection Method Collection Time Receive d Time (Source) Location / / Volume Laterality Blood 06/20/2020 8:08 AM 0 8:37 PURCHASE REQUEST EDITOR AM PURCHASE REQUEST EDITOR Janusz Higgins.B.S. LAB BLOOD ADD-ON Performing Organization Address City/State/ZIP Code Phon e Number [facility] - [address] [place], [place] [address] [place] [address] [facility] [address] (ABNORMAL) Protein, Total (06/20/2020 8:08 AM PURCHASE REQUEST EDITOR) P athologist Signature Protein, 6.1 (L) 6.3 - 7.9 06/20/2020 DTL Total, S g/dL 9:56 AM PURCHASE REQUEST EDITOR Specimen Anatomical Collection Method Collection Time Receive d Time (Source) Location / / Volume Laterality Blood (Blood, 06/20/2020 8:08 AM 06/20/20 20 8:56 Venous) PURCHASE REQUEST EDITOR AM PURCHASE REQUEST EDITOR Janusz Higgins.B.S. LAB BLOOD ADD-ON Performing Organization Address City/State/ZIP Code Phon e Number [facility] - [address] [place], [place] [address] [facility] [place] [address] [facility] [address] Albumin (06/20/2020 8:08 AM PURCHASE REQUEST EDITOR) athologist Signature Albumin, S 4.2 3.5 - 5.0 06/20/2020 DTL g/dL 9:56 AM PURCHASE REQUEST EDITOR Specimen Anatomical Collection Method Collection Time Receive d Time (Source) Location / / Volume Laterality Blood (Blood, 06/20/2020 8:08 AM 06/20/20 20 8:56 Venous) PURCHASE REQUEST EDITOR AM PURCHASE REQUEST EDITOR Janusz Higgins.B.S. LAB BLOOD ADD-ON Performing Organization Address City/State/ZIP Code Phon e Number [facility] - [address] [place], [place] [address] [place] [address] [facility] [address] Glucose, Random (06/20/2020 8:08 AM PURCHASE REQUEST EDITOR) P athologist Signature Glucose, S 140 70 - 140 06/20/2020 DTL mg/dL 9:56 AM PURCHASE REQUEST EDITOR Specimen Anatomical Collection Method Collection Time Receive d Time (Source) Location / / Volume Laterality Blood (Blood, 06/20/2020 8:08 AM 06/20/20 8:56 Venous) PURCHASE REQUEST EDITOR AM PURCHASE REQUEST EDITOR Janusz AlexandraS. LAB BLOOD TROPONIN Performing Organization Address City/[facility] Phon e Number [facility] - 200 [place], [place] [address] [facility] [place] [address] [address] Uric Acid (06/20/2020 8:08 AM PURCHASE REQUEST EDITOR) P athologist Signature Uric Acid, S 4.2 2.7 - 6.1 06/20/2020 DTL mg/dL 9:56 AM PURCHASE REQUEST EDITOR Specimen Anatomical Collection Method Collection Time Receive d Time (Source) Location / / Volume Laterality Blood (Blood, 06/20/2020 8:08 AM 06/20/20 8:56 Venous) PURCHASE REQUEST EDITOR AM PURCHASE REQUEST EDITOR Janusz AlexandraS. LAB BLOOD ADD-ON Performing Organization Address City/State/[facility] Code Phon e Number [facility] - 200 [place], [place] [address] [place] [address] (ABNORMAL) Creatinine with Estimated GFR (06/20/2020 8:08 AM PURCHASE REQUEST EDITOR) Analysis Performed At Patho logist Time Signature Creatinine 1.07 (H) 0.59 - 06/20/2020 DTL 1.04 mg/dL 9:56 AM PURCHASE REQUEST EDITOR eGFR-Non 60 >=60 06/20/2020 DTL Black/ mL/min/BSA 9:56 AM PURCHASE REQUEST EDITOR Malian Comment: ----ADDITIONAL INFORMATION---- Estimated GFR calculated using the 2009 CKD_EPI creatinine equation. eGFR-Black/ 69 >=60 mL/min/BSA 2019 9:56 AM PURCHASE REQUEST EDITOR DTL Comment: ----ADDITIONAL INFORMATION---- Estimated GFR calculated using the 2009 CKD_EPI creatinine equation. Specimen Anatomical Collection Method Collection Time Receive d Time (Source) Location / / Volume Laterality Blood (Blood, 06/20/2020 8:08 AM 06/20/20 8:56 Venous) PURCHASE REQUEST EDITOR AM PURCHASE REQUEST EDITOR Janusz Govea M.B.B.S. LAB BLOOD ADD-ON Performing Organization Address City/State/ZIP Code Phon e Number [facility] - [address] [place], [place] [address] [place] [address] (ABNORMAL) BUN (Blood Urea Nitrogen) (06/20/2020 8:08 AM PURCHASE REQUEST EDITOR) athologist Signature BUN (Blood Urea 25 (H) 6 - 21 06/20/2020 DTL Nitrogen), S mg/dL 9:56 AM PURCHASE REQUEST EDITOR Specimen Anatomical Collection Method Collection Time Receive d Time (Source) Location / / Volume Laterality Blood (Blood, 06/20/2020 8:08 AM 06/20/20 8:56 Venous) PURCHASE REQUEST EDITOR AM PURCHASE REQUEST EDITOR Janusz Govea M.B.B.S. LAB BLOOD ADD-ON Performing Organization Address City/[facility]/ZIP Code Phon e Number [facility] - [address] Bilirubin, Total (06/20/2020 8:08 AM PURCHASE REQUEST EDITOR) athologist Signature Bilirubin, 0.5 <=1.2 mg/dL 06/20/2020 DTL Total, S 9:56 AM PURCHASE REQUEST EDITOR Specimen Anatomical Collection Method Collection Time Receive d Time (Source) Location / / Volume Laterality Blood (Blood, 06/20/2020 8:08 AM 06/20/20 8:56 Venous) PURCHASE REQUEST EDITOR AM PURCHASE REQUEST EDITOR Janusz Govea M.B.B.S. LAB BLOOD ADD-ON Performing Organization Address City/State/ZIP Code Phon e Number [facility] - [address] Calcium, Total (06/20/2020 8:08 AM PURCHASE REQUEST EDITOR) athologist Signature Calcium, Total, 8.7 8.6 - 10.0 06/20/2020 DTL S mg/dL 9:56 AM PURCHASE REQUEST EDITOR Specimen Anatomical Collection Method Collection Time Receive d Time (Source) Location / / Volume Laterality Blood (Blood, 06/20/2020 8:08 AM 06/20/20 8:56 Venous) PURCHASE REQUEST EDITOR AM PURCHASE REQUEST EDITOR Janusz Govea M.B.B.S. LAB BLOOD ADD-ON Performing Organization Address City/State/ZIP Code Phon e Number [facility] - [address] [place], [place] [address] [place] [address] [facility] [address] Chloride (06/20/2020 8:08 AM PURCHASE REQUEST EDITOR) P athologist Signature Chloride, S 107 98 - 107 06/20/2020 DTL mmol/L 9:56 AM PURCHASE REQUEST EDITOR Specimen Anatomical Collection Method Collection Time Receive d Time (Source) Location / / Volume Laterality Blood (Blood, 06/20/2020 8:08 AM 06/20/20 8:56 Venous) PURCHASE REQUEST EDITOR AM PURCHASE REQUEST EDITOR Janusz Govea M.B.B.S. LAB BLOOD ADD-ON Performing Organization Address City/State/ZIP Code Phon e Number [facility] - [address] [place], [place] [address] [place] [address] [facility] [address] Magnesium (06/20/2020 8:08 AM PURCHASE REQUEST EDITOR) athologist Signature Magnesium, S 2.0 1.7 - 2.3 06/20/2020 DTL mg/dL 9:56 AM PURCHASE REQUEST EDITOR Specimen Anatomical Collection Method Collection Time Receive d Time (Source) Location / / Volume Laterality Blood (Blood, 06/20/2020 8:08 AM 06/20/20 8:56 Venous) PURCHASE REQUEST EDITOR AM PURCHASE REQUEST EDITOR Janusz Govea M.B.B.S. LAB BLOOD ADD-ON Performing Organization Address City/State/ZIP Code Phon e Number [facility] - [address] [place], [place] [address] [place] [address] [facility] [address] Potassium (06/20/2020 8:08 AM PURCHASE REQUEST EDITOR) P athologist Signature Potassium, S 4.5 3.6 - 5.2 06/20/2020 DTL mmol/L 9:56 AM PURCHASE REQUEST EDITOR Specimen Anatomical Collection Method Collection Time Receive d Time (Source) Location / / Volume Laterality Blood (Blood, 06/20/2020 8:08 AM 06/20/20 8:56 Venous) PURCHASE REQUEST EDITOR AM PURCHASE REQUEST EDITOR Janusz Dillon.B.B.S. LAB BLOOD ADD-ON Performing Organization Address City/State/ZIP Code Phon e Number [facility] - [address] [place], [place] [address] [place] [address] [facility] [address] Sodium (06/20/2020 8:08 AM PURCHASE REQUEST EDITOR) P athologist Signature Sodium, S 140 135 - 145 06/20/2020 9:56 DTL mmol/L AM PURCHASE REQUEST EDITOR Specimen Anatomical Collection Method Collection Time Receive d Time (Source) Location / / Volume Laterality Blood (Blood, 06/20/2020 8:08 AM 06/20/20 8:56 Venous) PURCHASE REQUEST EDITOR AM PURCHASE REQUEST EDITOR Janusz Govea M.B.B.S. LAB BLOOD ADD-ON Performing Organization Address City/[facility] Code Phon e Number [facility] - [address] [place] [address] [place] [address] [facility] [address] Alkaline Phosphatase (06/20/2020 8:08 AM PURCHASE REQUEST EDITOR) P athologist Signature Alkaline 38 35 - 104 06/20/2020 DTL Phosphatase, S U/L 9:56 AM PURCHASE REQUEST EDITOR Specimen Anatomical Collection Method Collection Time Receive d Time (Source) Location / / Volume Laterality Blood (Blood, 06/20/2020 8:08 AM 06/20/20 20 8:56 Venous) PURCHASE REQUEST EDITOR AM PURCHASE REQUEST EDITOR Janusz Dillon.B.B.S. LAB BLOOD ADD-ON Performing Organization Address City/State/ZIP Code Phon e Number [facility] - [address] [place] [address] [place], [place] [address] [facility] [address] AST (Aspartate Aminotransferase) (06/20/2020 8:08 AM PURCHASE REQUEST EDITOR) Patholo gist Method Time Signature Aspartate 25 8 - 43 06/20/2020 DTL Aminotransferase U/L 9:56 AM PURCHASE REQUEST EDITOR (AST), S Specimen Anatomical Collection Method Collection Time Receive d Time (Source) Location / / Volume Laterality Blood (Blood, 06/20/2020 8:08 AM 06/20/20 20 8:56 Venous) PURCHASE REQUEST EDITOR AM PURCHASE REQUEST EDITOR Janusz Ardon LAB BLOOD ADD-ON Performing Organization Address City/[facility] Phon e Number [facility] - 200 [place], [place] [address] [place] [address] ALT (Alanine Aminotransferase) (06/20/2020 8:08 AM PURCHASE REQUEST EDITOR) [employer] Method Time Signature Alanine 17 7 - 45 06/20/2020 DTL Aminotransferase U/L 9:56 AM PURCHASE REQUEST EDITOR (ALT), S Specimen Anatomical Collection Method Collection Time Receive d Time (Source) Location / / Volume Laterality Blood (Blood, 06/20/2020 8:08 AM 06/20/20 20 8:56 Venous) PURCHASE REQUEST EDITOR AM PURCHASE REQUEST EDITOR Janusz AlexandraSZahraa LAB BLOOD ADD-ON Performing Organization Address City/[facility] Phon e Number [facility] - 200 [place], [place] [address] [place] [id number] [place] [address] (ABNORMAL) CBC with Differential, Blood (06/20/2020 8:08 AM PURCHASE REQUEST EDITOR) [employer] Method Time Signature Hemoglobin 6.5 (L) 11.6 - 06/20/2020 DTL 15.0 g/dL 8:52 AM PURCHASE REQUEST EDITOR Hematocrit 21.6 (L) 35.5 - 06/20/2020 DTL 44.9 % 8:52 AM PURCHASE REQUEST EDITOR Erythrocytes 2.37 (L) 3.92 - 06/20/2020 DTL 5.13 8:52 AM PURCHASE REQUEST EDITOR x10(12)/L MCV 91.1 78.2 - 06/20/2020 DTL 97.9 fL 8:52 AM PURCHASE REQUEST EDITOR RBC Distrib Width 26.9 (H) 12.2 - 06/20/2020 DTL 16.1 % 8:52 AM PURCHASE REQUEST EDITOR Platelet Count 121 (L) 157 - 371 06/20/2020 DTL x10(9)/L 8:52 AM PURCHASE REQUEST EDITOR Leukocytes 2.6 (L) 3.4 - 9.6 06/20/2020 DTL x10(9)/L 9:42 AM PURCHASE REQUEST EDITOR Comment: Results confirmed by smear. Neutrophils SeeComment 1.56 - 6.45 x10(9)/L 06/20/2020 9:42 AM PURCHASE REQUEST EDITOR DTL Comment: Auto-diff results not valid. Se e manual differential. Specimen Anatomical Collection Method Collection Time Receive d Time (Source) Location / / Volume Laterality Blood (Blood, 06/20/2020 8:08 AM 06/20/20 8:37 Venous) PURCHASE REQUEST EDITOR AM PURCHASE REQUEST EDITOR Janusz Ardon LAB BLOOD ADD-ON Performing Organization Address City/State/ZIP Code Phon e Number [facility] - [address] [place], [place] [address] [facility] [place] [address] Laboratories-[facility] [address] documented in this encounter Visit Diagnoses Diagnosis Myelofibrosis (HCC) documented in this encounter
--- OUTSIDE RECORDS SUMMARY | 2022-05-02 12:36 | XMS_ITS | Encounter Summary ---
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
--- OUTSIDE RECORDS SUMMARY | 2022-05-02 12:36 | XMS_ITS | Encounter Summary ---
:1970 Author Organization [facility] Address [address] [place] [address] Care Team Providers Name Role Phone Unavailable Primary Care Provider Unavailable Reason for Referral Outpatient (Routine) - Closed Specialty Diagnoses / Procedures Referred By Contact Refer red To Contact Diagnoses Myelofibrosis (HCC) Janusz Govea M.B.B.S. [facility] Procedures ECG 12 Lead [address] [place] [phone] Referral ID Status Reason Start Date Expiration Date Visits Requ ested Visits Authorized [id number] Closed 07/03/2020 07/03/2021 1 1 P UNDERWRITER Encounter Details Date Type Department Care Team Description 07/03/2020 Orders Only Division of [facility], Myelofibrosis ( HCC) Hematology in [place] Archer (Primary Dx) [place], [place] [address] [facility] [address] [place] [phone] Social History Tobacco Use Types Packs/Day Years Used Date Smoking Tobacco: Former Smokeless Tobacco: Never Sex Assigned at Date Recorded Female 07/24/2021 11:03 AM GROUP UNDERWRITER documented as of this encounter Plan of Treatment Not on filedocumented as of this encounter Results ECG 12 Lead (07/03/2020 9:41 AM GROUP UNDERWRITER) P athologist Signature Ventricular Rate 77 BPM MUSE ECG/Min ID Interval 144 ms MUSE QRSD Interval 84 ms MUSE QT Interval 398 ms MUSE QTC Interval 450 ms MUSE P [place] 57 degrees MUSE R [place] 20 degrees MUSE T Wave [place] 53 degrees MUSE Specimen Anatomical Collection Method Collection Time Receive d Time (Source) Location / / Volume Laterality 07/03/2020 9:41 AM 0 GROUP UNDERWRITER 10:23 AM GROUP UNDERWRITER Impressions MUSE - 07/03/2020 10:23 AM GROUP UNDERWRITER Normal sinus rhythm T wave abnormality, consider [...]
--- OUTSIDE RECORDS SUMMARY | 2022-05-02 12:36 | XMS_ITS | Encounter Summary ---
:1970 Author Organization [facility] Address [address] [place] [address] Care Team Providers Name Role Phone Unavailable Primary Care Provider Unavailable Reason for Visit Episode Based Medications (Routine) - Closed Specialty Diagnoses / Procedures Referred By Contact Refer red To Contact Medical Oncology / Diagnoses Myelofibrosis (HCC) Janusz Govea [facility] Procedures ONCBCN INFUSION APPOINTMENT REQUEST 09 ONC THER INF M.B.B.S. [address] [facility] [address] [place] [phone] Referral ID Status Reason Start Date Expiration Date Visits Requ ested Visits Authorized [id number] Closed 06/06/2020 06/20/2021 99 30 Encounter Details Date Type Department Care Team Description 07/10/2020 Infusion Department of Oncology Janusz Govea M yelofibrosis (HCC) in [facility] peeled potato inspector M.B.B.S. 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 documented as of this encounter Last Filed Vital Signs Vital Sign Reading Time Taken Comments Blood Pressure 143/83 07/10/2020 12:43 PM CIRCUITS ENGINEER Pulse 97 07/10/2020 12:43 PM CIRCUITS ENGINEER Temperature 36.3 ??C (97.3 ??F) 07/10/2020 12:43 PM CIRCUITS ENGINEER Respiratory Rate 16 07/10/2020 12:43 PM CIRCUITS ENGINEER Oxygen Saturation - - Inhaled Oxygen Concentration - - Weight 92.8 kg (204 lb 9.4 oz) 07/10/2020 8:38 AM CIRCUITS ENGINEER Height - - Body Mass Index 32.49 07/03/2020 9:03 AM CIRCUITS ENGINEER documented in 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 Administered Medications Inactive Administered Medications - up to 3 most recent administrations Medication Order MAR Action Action Date Dose Rate Site furosemide injection 20 mg (LASIX) Given 07/10/2020 12:37 PM CIRCUITS ENGINEER 20 mg 20 mg, intravenous, Once, On Fri07/10/20 at 0900, For 1 dose, Adults: Doses less than 120 mg: IV push over 20 mg/minute. Doses 120 mg or greater: IVPB at 4 mg/minute. After treatment [employer] [id number] New Bag 07/10/2020 9:54 AM CIRCUITS ENGINEER 1,130 mg 500 mL/hr 1,130 mg in [...] injection 30 mL Given 07/10/2020 12:36 PM CIRCUITS ENGINEER 30 mL 30 mL, intravenous, Once, On Fri07/10/20 at 0845, For 1 dose, Post chemotherapy flush documented in this encounter
--- OUTSIDE RECORDS SUMMARY | 2022-05-02 12:36 | XMS_ITS | Encounter Summary ---
:1970 Author Organization [facility] Address [address] [place] [address] Care Team Providers Name Role Phone Unavailable Primary Care Provider Unavailable Reason for Visit Episode Based Medications (Routine) - Closed Specialty Diagnoses / Procedures Referred By Contact Refer red To Contact Medical Oncology / Diagnoses Myelofibrosis (HCC) Janusz Govea Rst Inf Onc Rogo Oncology Procedures ONCBCN INFUSION APPOINTMENT REQUEST 09 ONC THER INF M.B.B.S. 200 [address] [facility] [address] [place] [phone] Referral ID Status Reason Start Date Expiration Date Visits Requ ested Visits Authorized [id number] Closed 06/06/2020 06/20/2021 99 30 Encounter Details Date Type Department Care Team Description 06/30/2020 Infusion Department of Oncology Janusz Govea M yelofibrosis (HCC) in [facility] potato loader M.B.B.S. 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 documented as of this encounter Last Filed Vital Signs Vital Sign Reading Time Taken Comments Blood Pressure 117/65 06/30/2020 12:23 PM PLANETARIUM SKY SHOW TECHNICIAN Pulse 78 06/30/2020 12:23 PM PLANETARIUM SKY SHOW TECHNICIAN Temperature 36.6 ??C (97.9 ??F) 06/30/2020 12:23 PM PLANETARIUM SKY SHOW TECHNICIAN Respiratory Rate 18 06/30/2020 12:23 PM PLANETARIUM SKY SHOW TECHNICIAN Oxygen Saturation 98% 06/30/2020 12:23 PM PLANETARIUM SKY SHOW TECHNICIAN Inhaled Oxygen Concentration - - Weight 95.5 kg (210 lb 10.4 oz) 06/30/2020 9:12 AM PLANETARIUM SKY SHOW TECHNICIAN Height - - Body Mass Index 32.49 06/06/2020 8:02 AM PLANETARIUM SKY SHOW TECHNICIAN documented in 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 Administered Medications Inactive Administered Medications - up to 3 most recent administrations Medication Order MAR Action Action Date Dose Rate Site Research IRB [id number] New Bag 06/30/2020 9:57 AM PLANETARIUM SKY SHOW TECHNICIAN 850 mg 5 00 mL/hr 9-ING-41 850 [...] injection 30 mL Given 06/30/2020 12:22 PM PLANETARIUM SKY SHOW TECHNICIAN 30 mL 30 mL, intravenous, Once, On Fri06/30/20 at 1130, For 1 dose, Post chemotherapy flush documented in this encounter
--- OUTSIDE RECORDS SUMMARY | 2022-05-02 12:36 | XMS_ITS | Encounter Summary ---
:1970 Author Organization [facility] Address [address] [place] [address] Care Team Providers Name Role Phone Unavailable Primary Care Provider Unavailable Encounter Details Date Type Department Care Team Description 06/27/2020 Hospital Encounter Department of Gangat, Myelofib rosis ([facility]) Laboratory Medicine [facility], and Pathology, [facility], in [address] [place] [phone] [place], [place] [phone] (Work) [phone] Social History Tobacco Use Types Packs/Day Years Used Date Smoking Tobacco: Former Smokeless Tobacco: Never Sex Assigned at Date Recorded Female 07/24/2021 11:03 AM MRP CONTROLLER documented as of this encounter Medications [...] Routine 06/27/2020 8:00 Results for this AM MRP CONTROLLER procedure are i n the results section. CBC WITH DIFFERENTIAL, B Routine 06/27/2020 8:00 Myelofibrosis (HCC) Results for this AM MRP CONTROLLER procedure are i n the results section. TYPE AND SCREEN Routine 06/27/2020 8:00 Myelofibrosis (HCC) Re sults for this AM MRP CONTROLLER procedure are i n the results section. URIC ACID, S/P Routine 06/27/2020 8:00 Myelofibrosis (HCC) Res ults for this AM MRP CONTROLLER procedure are i n the results section. BUN (BLOOD UREA Routine 06/27/2020 8:00 Myelofibrosis (HCC) Re sults for this NITROGEN), S/P AM MRP CONTROLLER procedure are in the results section. ALANINE AMINOTRANSFERASE Routine 06/27/2020 8:00 Myelofibrosis (HCC) Results for this (ALT), S/P AM MRP CONTROLLER procedure are i n the results section. ASPARTATE Routine 06/27/2020 8:00 Myelofibrosis (HCC) Resul ts for this AMINOTRANSFERASE (AST), AM MRP CONTROLLER proc edure are in S/P the results section. SODIUM, S/P Routine 06/27/2020 8:00 Myelofibrosis (HCC) Resul ts for this AM MRP CONTROLLER procedure are i n the results section. PROTEIN, TOTAL, S/P Routine 06/27/2020 8:00 Myelofibrosis (HCC ) Results for this AM MRP CONTROLLER procedure are i n the results section. POTASSIUM, S/P Routine 06/27/2020 8:00 Myelofibrosis (HCC) Res ults for this AM MRP CONTROLLER procedure are i n the results section. ALKALINE PHOSPHATASE, Routine 06/27/2020 8:00 Myelofibrosis (H CC) Results for this S/P AM MRP CONTROLLER procedure are i n the results section. MAGNESIUM, S Routine 06/27/2020 8:00 Myelofibrosis (HCC) Resul ts for this AM MRP CONTROLLER procedure are i n the results section. GLUCOSE, RANDOM, S/P Routine 06/27/2020 8:00 Myelofibrosis (HC C) Results for this AM MRP CONTROLLER procedure are i n the results section. CREATININE WITH EGFR, Routine 06/27/2020 8:00 Myelofibrosis (H CC) Results for this S/P AM MRP CONTROLLER procedure are i n the results section. CHLORIDE, S/P Routine 06/27/2020 8:00 Myelofibrosis (HCC) Resu lts for this AM MRP CONTROLLER procedure are i n the results section. CALCIUM, TOT, S/P Routine 06/27/2020 8:00 Myelofibrosis (HCC) Results for this AM MRP CONTROLLER procedure are i n the results section. BILIRUBIN, TOT, S/P Routine 06/27/2020 8:00 Myelofibrosis (HCC ) Results for this AM MRP CONTROLLER procedure are i n the results section. ALBUMIN, S/P Routine 06/27/2020 8:00 Myelofibrosis (HCC) Resul ts for this AM MRP CONTROLLER procedure are i n the results section. documented in this encounter Results (ABNORMAL) Morphology Evaluation (Special Smear) (06/27/2020 8:00 AM MRP CONTROLLER) [facility] gist Method Time Signature Neutrophilic Segs 74 50 - 75 % 06/27/2020 DHPM and Bands 9:49 AM MRP CONTROLLER Lymphocytes 9 (L) 18 - 42 % 06/27/2020 DHPM 9:49 AM MRP CONTROLLER Monocytes 4 2 - 11 % 06/27/2020 DHPM 9:49 AM MRP CONTROLLER Eosinophils 2 1 - 3 % 06/27/2020 DHPM 9:49 AM MRP CONTROLLER Basophils 1 0 - 2 % 06/27/2020 DHPM 9:49 AM MRP CONTROLLER Metamyelocytes 5 (H) <1 % 06/27/2020 DHPM 9:49 AM MRP CONTROLLER Myelocytes 5 (H) <0.5 % 06/27/2020 DHPM 9:49 AM MRP CONTROLLER Megakaryocytes 1 (H) <1 /100 06/27/2020 DHPM WBC 9:49 AM MRP CONTROLLER Nucleated RBC 4 /100 WBC 06/27/2020 DHPM 9:49 AM MRP CONTROLLER Manual Absolute 2.37 1.56 - 06/27/2020 [facility] Neutrophil Count 6.45 9:49 AM MRP CONTROLLER x10(9)/L Comment: ----ADDITIONAL INFORMATION---- The manual absolute neutrophil count is derived from a manual differential count and therefore is not exactly comparable to the automated absolute halie trophil count. Specimen Anatomical Collection Method Collection Time Receive d Time (Source) Location / / Volume Laterality Blood 06/27/2020 8:00 AM 0 8:27 MRP CONTROLLER AM MRP CONTROLLER Janusz AlexandraS. LAB BLOOD ADD-ON Performing Organization Address City/[facility] Phon e Number [facility] - [address] [place] [id number] [address] Type and Screen (with reflex Antibody ID) (06/27/2020 8:00 AM MRP CONTROLLER) Patholo gist Method Time Signature ABORh A Pos Not 06/27/2020 ETRM applicable 10:17 AM MRP CONTROLLER Antibody Negative Negative 06/27/2020 E[facility] Screen 10:29 AM MRP CONTROLLER Type & Screen 06/30/2020 06/27/2020 ETRM Expiration 23:59 10:17 AM MRP CONTROLLER Testing Deidra DEFAULT 06/27/2020 ETRM Location 8:36 AM MRP CONTROLLER Specimen Anatomical Collection Method Collection Time Receive d Time (Source) Location / / Volume Laterality Blood (Blood, 06/27/2020 8:00 AM 06/27/20 20 8:36 Venous) MRP CONTROLLER AM MRP CONTROLLER Janusz AlexandraSZahraa LAB BLOOD BANK TEST ORDERABL ES Performing Organization Address City/[facility] Phon e Number [facility] - [address] [place], [place] [address] [facility] [place] [address] (ABNORMAL) Protein, Total (06/27/2020 8:00 AM MRP CONTROLLER) P athologist Signature Protein, 6.0 (L) 6.3 - 7.9 06/27/2020 DTL Total, S g/dL 9:12 AM MRP CONTROLLER Specimen Anatomical Collection Method Collection Time Receive d Time (Source) Location / / Volume Laterality Blood (Blood, 06/27/2020 8:00 AM 06/27/20 20 8:19 Venous) MRP CONTROLLER AM MRP CONTROLLER Janusz Govea M.B.B.S. LAB BLOOD ADD-ON Performing Organization Address City/[facility]/ZIP Code Phon e Number [facility] - [address] [place], [place] [address] [place] [address] [address] [facility] Albumin (06/27/2020 8:00 AM MRP CONTROLLER) athologist Signature Albumin, S 4.2 3.5 - 5.0 06/27/2020 DTL g/dL 9:12 AM MRP CONTROLLER Specimen Anatomical Collection Method Collection Time Receive d Time (Source) Location / / Volume Laterality Blood (Blood, 06/27/2020 8:00 AM 06/27/20 8:19 Venous) MRP CONTROLLER AM MRP CONTROLLER Janusz Govea M.B.B.S. LAB BLOOD ADD-ON Performing Organization Address City/[facility]/ZIP Code Phon e Number [facility] - [address] Glucose, Random (06/27/2020 8:00 AM MRP CONTROLLER) athologist Signature Glucose, S 98 70 - 140 06/27/2020 DTL mg/dL 9:12 AM MRP CONTROLLER Specimen Anatomical Collection Method Collection Time Receive d Time (Source) Location / / Volume Laterality Blood (Blood, 06/27/2020 8:00 AM 06/27/20 8:19 Venous) MRP CONTROLLER AM MRP CONTROLLER Janusz Govea M.B.B.S. LAB BLOOD TROPONIN Performing Organization Address City/State/ZIP [facility] Phon e Number [facility] - [address] Uric Acid (06/27/2020 8:00 AM MRP CONTROLLER) P athologist Signature Uric Acid, S 3.9 2.7 - 6.1 06/27/2020 DTL mg/dL 9:12 AM MRP CONTROLLER Specimen Anatomical Collection Method Collection Time Receive d Time (Source) Location / / Volume Laterality Blood (Blood, 06/27/2020 8:00 AM 06/27/20 20 8:19 Venous) MRP CONTROLLER AM MRP CONTROLLER Janusz AlexandraSZahraa LAB BLOOD ADD-ON Performing Organization Address City/[facility] Phon e Number [facility] - 200 [place], [place] [address] [facility] [place] [address] Laboratories-[address] Creatinine with Estimated GFR (06/27/2020 8:00 AM MRP CONTROLLER) athologist Signature Creatinine 0.97 0.59 - 06/27/2020 DTL 1.04 mg/dL 9:12 AM MRP CONTROLLER eGFR-Non 67 >=60 06/27/2020 DTL Black/ mL/min/BSA 9:12 AM MRP CONTROLLER Somali Comment: ----ADDITIONAL INFORMATION---- Estimated GFR calculated using the 2009 CKD_EPI creatinine equation. eGFR-Black/ 78 >=60 mL/min/BSA 2019 9:12 AM MRP CONTROLLER DTL Comment: ----ADDITIONAL INFORMATION---- Estimated GFR calculated using the 2009 CKD_EPI creatinine equation. Specimen Anatomical Collection Method Collection Time Receive d Time (Source) Location / / Volume Laterality Blood (Blood, 06/27/2020 8:00 AM 06/27/20 8:19 Venous) MRP CONTROLLER AM MRP CONTROLLER Janusz AlexandraSZahraa LAB BLOOD ADD-ON Performing Organization Address City/[facility] Phon e Number [facility] - 200 [place], [place] [address] [place] [address] Laboratories[address] (ABNORMAL) BUN (Blood Urea Nitrogen) (06/27/2020 8:00 AM MRP CONTROLLER) athologist Signature BUN (Blood Urea 25 (H) 6 - 21 06/27/2020 DTL Nitrogen), S mg/dL 9:12 AM MRP CONTROLLER Specimen Anatomical Collection Method Collection Time Receive d Time (Source) Location / / Volume Laterality Blood (Blood, 06/27/2020 8:00 AM 06/27/20 20 8:19 Venous) MRP CONTROLLER AM MRP CONTROLLER Janusz AlexandraS. LAB BLOOD ADD-ON Performing Organization Address City/State/[facility] Phon e Number [facility] - [address] [place] [address] [place] [address] 200 [facility] Bilirubin, Total (06/27/2020 8:00 AM MRP CONTROLLER) athologist Signature Bilirubin, 0.5 <=1.2 mg/dL 06/27/2020 DTL Total, S 9:12 AM MRP CONTROLLER Specimen Anatomical Collection Method Collection Time Receive d Time (Source) Location / / Volume Laterality Blood (Blood, 06/27/2020 8:00 AM 06/27/20 20 8:19 Venous) MRP CONTROLLER AM MRP CONTROLLER Naseema Gangat M.B.B.S. LAB BLOOD ADD-ON Performing Organization Address City/[facility] Phon e Number [facility] - [phone] [place] [address] Calcium, Total (06/27/2020 8:00 AM MRP CONTROLLER) athologist Signature Calcium, Total, 8.9 8.6 - 10.0 06/27/2020 DTL S mg/dL 9:12 AM MRP CONTROLLER Specimen Anatomical Collection Method Collection Time Receive d Time (Source) Location / / Volume Laterality Blood (Blood, 06/27/2020 8:00 AM 06/27/20 20 8:19 Venous) MRP CONTROLLER AM MRP CONTROLLER Nasbaltazarma Harrygat M.B.B.S. LAB BLOOD ADD-ON Performing Organization Address City/State/ZIP Code Phon e Number [facility] - 200 [place], [place] [address] [place] [id number] [place] [address] Chloride (06/27/2020 8:00 AM MRP CONTROLLER) athologist Signature Chloride, S 106 98 - 107 06/27/2020 DTL mmol/L 9:12 AM MRP CONTROLLER Specimen Anatomical Collection Method Collection Time Receive d Time (Source) Location / / Volume Laterality Blood (Blood, 06/27/2020 8:00 AM 06/27/20 20 8:19 Venous) MRP CONTROLLER AM MRP CONTROLLER Naseema Gangat M.B.B.S. LAB BLOOD ADD-ON Performing Organization Address City/[facility]/ZIP Code Phon e Number [facility] - [address] Magnesium (06/27/2020 8:00 AM MRP CONTROLLER) P athologist Signature Magnesium, S 2.0 1.7 - 2.3 06/27/2020 DTL mg/dL 9:12 AM MRP CONTROLLER Specimen Anatomical Collection Method Collection Time Receive d Time (Source) Location / / Volume Laterality Blood (Blood, 06/27/2020 8:00 AM 06/27/20 20 8:19 Venous) MRP CONTROLLER AM MRP CONTROLLER Janusz Holt.S. LAB BLOOD ADD-ON Performing Organization Address City/[facility] Phon e Number [facility] - [address] [address] Potassium (06/27/2020 8:00 AM MRP CONTROLLER) P athologist Signature Potassium, S 4.6 3.6 - 5.2 06/27/2020 DTL mmol/L 9:12 AM MRP CONTROLLER Specimen Anatomical Collection Method Collection Time Receive d Time (Source) Location / / Volume Laterality Blood (Blood, 06/27/2020 8:00 AM 06/27/20 20 8:19 Venous) MRP CONTROLLER AM MRP CONTROLLER Janusz Holt.S. LAB BLOOD ADD-ON Performing Organization Address City/[facility] Phon e Number [facility] - [address] [address] Sodium (06/27/2020 8:00 AM MRP CONTROLLER) P athologist Signature Sodium, S 142 135 - 145 06/27/2020 9:12 DTL mmol/L AM MRP CONTROLLER Specimen Anatomical Collection Method Collection Time Receive d Time (Source) Location / / Volume Laterality Blood (Blood, 06/27/2020 8:00 AM 06/27/20 20 8:19 Venous) MRP CONTROLLER AM MRP CONTROLLER Janusz AlexandraS. LAB BLOOD ADD-ON Performing Organization Address City/State/ZIP Code Phon e Number [facility] - [address] [place], [place] [address] [place], [place] [address] [place] [address] [address] [facility] Alkaline Phosphatase (06/27/2020 8:00 AM MRP CONTROLLER) P athologist Signature Alkaline 42 35 - 104 06/27/2020 DTL Phosphatase, S U/L 9:12 AM MRP CONTROLLER Specimen Anatomical Collection Method Collection Time Receive d Time (Source) Location / / Volume Laterality Blood (Blood, 06/27/2020 8:00 AM 06/27/20 20 8:19 Venous) MRP CONTROLLER AM MRP CONTROLLER Janusz AlexandraS. LAB BLOOD ADD-ON Performing Organization Address City/[facility] Code Phon e Number [facility] - [address] [place], [place] [address] [place] [address] AST (Aspartate Aminotransferase) (06/27/2020 8:00 AM MRP CONTROLLER) Patholo gist Method Time Signature Aspartate 26 8 - 43 06/27/2020 DTL Aminotransferase U/L 9:12 AM MRP CONTROLLER (AST), S Specimen Anatomical Collection Method Collection Time Receive d Time (Source) Location / / Volume Laterality Blood (Blood, 06/27/2020 8:00 AM 06/27/20 20 8:19 Venous) MRP CONTROLLER AM MRP CONTROLLER Janusz AlexandraS. LAB BLOOD ADD-ON Performing Organization Address City/[facility]/ZIP Code Phon e Number [facility] - [address] [place], [place] [address] [place], [place] [phone] [place] [address] [facility] ALT (Alanine Aminotransferase) (06/27/2020 8:00 AM MRP CONTROLLER) Patholo gist Method Time Signature Alanine 16 7 - 45 06/27/2020 DTL Aminotransferase U/L 9:12 AM MRP CONTROLLER (ALT), S Specimen Anatomical Collection Method Collection Time Receive d Time (Source) Location / / Volume Laterality Blood (Blood, 06/27/2020 8:00 AM 06/27/20 20 8:19 Venous) MRP CONTROLLER AM MRP CONTROLLER Janusz AlexandraSZahraa LAB BLOOD ADD-ON Performing Organization Address City/State/[facility] Phon e Number [facility] - [address] (ABNORMAL) CBC with Differential, Blood (06/27/2020 8:00 AM MRP CONTROLLER) [facility] Method Time Signature Hemoglobin 7.4 (L) 11.6 - 06/27/2020 DTL 15.0 g/dL 8:42 AM MRP CONTROLLER Hematocrit 24.8 (L) 35.5 - 06/27/2020 DTL 44.9 % 8:42 AM MRP CONTROLLER Erythrocytes 2.67 (L) 3.92 - 06/27/2020 DTL 5.13 8:42 AM MRP CONTROLLER x10(12)/L MCV 92.9 78.2 - 06/27/2020 DTL 97.9 fL 8:42 AM MRP CONTROLLER RBC Distrib 24.8 (H) 12.2 - 06/27/2020 DTL Width 16.1 % 8:42 AM MRP CONTROLLER Platelet Count 115 (L) 157 - 371 06/27/2020 DTL x10(9)/L 8:42 AM MRP CONTROLLER Leukocytes 3.2 (L) 3.4 - 9.6 06/27/2020 DTL x10(9)/L 9:48 AM MRP CONTROLLER Neutrophils SeeComment 1.56 - 06/27/2020 DTL 6.45 9:48 AM MRP CONTROLLER x10(9)/L Comment: Auto-diff results not valid. Se e manual differential. Specimen Anatomical Collection Method Collection Time Receive d Time (Source) Location / / Volume Laterality Blood (Blood, 06/27/2020 8:00 AM 06/27/20 20 8:27 Venous) MRP CONTROLLER AM MRP CONTROLLER Janusz AlexandraSZahraa LAB BLOOD ADD-ON Performing Organization Address City/[facility] Phon e Number [facility] - [address] documented in this encounter Visit Diagnoses Diagnosis Myelofibrosis (HCC) documented in this encounter
--- OUTSIDE RECORDS SUMMARY | 2022-05-02 12:36 | XMS_ITS | Encounter Summary ---
:1970 Author Organization [facility] Address [address] [place] [address] Care Team Providers Name Role Phone Unavailable Primary Care Provider Unavailable Encounter Details Date Type Department Care Team Description 06/23/2020 Orders Only Division of Zita Berger Myelofibrosis (HCC) Hematology in [phone] (Primary Dx) [place], [place] (Work) [address] [place] [phone] Social History Tobacco Use Types Packs/Day Years Used Date Smoking Tobacco: Former Smokeless Tobacco: Never Sex Assigned at Date Recorded Female 07/24/2021 11:03 AM 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
--- OUTSIDE RECORDS SUMMARY | 2022-05-02 12:36 | XMS_ITS | Encounter Summary ---
:1970 Author Organization [facility] Address [address] [place] [address] Care Team Providers Name Role Phone Unavailable Primary Care Provider Unavailable Encounter Details Date Type Department Care Team Description 06/27/2020 Orders Only Division of [facility], Myelofibrosis ( HCC) Hematology in [place] (Primary Dx) [address] [place] [phone] Social History Tobacco Use Types Packs/Day Years Used Date Smoking Tobacco: Former Smokeless Tobacco: Never Sex Assigned at Date Recorded Female 07/24/2021 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
--- OUTSIDE RECORDS SUMMARY | 2022-05-02 12:36 | XMS_ITS | Encounter Summary ---
:1970 Author Organization [facility] Address [address] [place] [address] Care Team Providers Name Role Phone Unavailable Primary Care Provider Unavailable Encounter Details Date Type Department Care Team Description 06/30/2020 Orders Only Division of [facility], Myelofibrosis ( HCC) Hematology in [place] (Primary Dx) [address] [place] [phone] Social History Tobacco Use Types Packs/Day Years Used Date Smoking Tobacco: Former Smokeless Tobacco: Never Sex Assigned at Date Recorded Female 07/24/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
--- OUTSIDE RECORDS SUMMARY | 2022-05-02 12:36 | XMS_ITS | Encounter Summary ---
:[address] [facility] Address [address] [place] [address] Care Team Providers Name Role Phone Unavailable Primary Care Provider Unavailable Reason for Visit Episode Based Medications (Routine) - Closed Specialty Diagnoses / Procedures Referred By Contact Refer red To Contact Medical Oncology / Diagnoses Myelofibrosis (HCC) Janusz Govea Rst Inf Onc Rog[facility] Oncology Procedures ONCBCN INFUSION APPOINTMENT REQUEST 09 ONC THER INF M.B.B.S. 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 Doses 120 mg or greater: IVPB at 4 mg/minute. After treatment Research IRB [id number] New Bag 07/03/2020 12:06 PM CS T [...] injection 30 mL Given 07/03/2020 2:19 PM RN STARS 30 mL 30 mL, intravenous, Once, On Fri07/03/20 at 1300, For 1 dose, Post chemotherapy flush documented in this encounter
--- OUTSIDE RECORDS SUMMARY | 2022-05-02 12:36 | XMS_ITS | Encounter Summary ---
:1970 Author Organization [facility] Address [address] [place] [address] Care Team Providers Name Role Phone Unavailable Primary Care Provider Unavailable Reason for Visit Reason Comments Outpatient Infusion Encounter Details Date Type Department Care Team Description 07/06/2020 Infusion Department of Infusion Janusz Govea M yelofibrosis (HCC) Therapy in [facility]. 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 documented as of this encounter Last Filed Vital Signs Vital Sign Reading Time Taken Comments Blood Pressure 139/76 07/06/2020 5:02 PM INFORMATION SECURITY DIRECTOR Pulse 85 07/06/2020 5:02 PM INFORMATION SECURITY DIRECTOR Temperature 36.5 ??C (97.7 ??F) 07/06/2020 5:02 PM INFORMATION SECURITY DIRECTOR Respiratory Rate 20 07/06/2020 5:02 PM INFORMATION SECURITY DIRECTOR Oxygen Saturation - - Inhaled Oxygen Concentration - - Weight - - Height - - Body Mass Index - - documented in this encounter Plan of Treatment Not on filedocumented as of this encounter Procedures Procedure Name Priority Date/Time Associated Diagnosis Comme nts TRANSFUSE RED BLOOD Routine 07/06/2020 2:38 PM INFORMATION SECURITY DIRECTOR Myelofibros is (HCC) CELLS documented in this encounter Results Transfuse Red Blood Cells : (07/06/2020 5:06 PM INFORMATION SECURITY DIRECTOR) Janusz AlexandraSZahraa BLOOD TRANSFUSION ORDERABLES Transfuse Red Blood Cells : , 1 Units (07/06/2020 5:06 PM INFORMATION SECURITY DIRECTOR) Janusz AlexandraSZarhaa BLOOD TRANSFUSION ORDERABLES documented in this encounter Visit Diagnoses Diagnosis Myelofibrosis (HCC) - Primary documented in this encounter Administered Medications Inactive Administered Medications - up to 3 most recent administrations Medication Order MAR Action Action Date Dose Rate Site sodium chloride 0.9 % injection 3 mL Given 07/06/2020 5:01 PM INFORMATION SECURITY DIRECTOR 3 mL 3 mL, intra-catheter, As needed, line care, Starting on Aruna 07/06/20 at 1411, Prior to and following infusion and between multiple consecutive infusions. Given 07/06/2020 2:35 PM INFORMATION SECURITY DIRECTOR 3 mL documented in this encounter
--- OUTSIDE RECORDS SUMMARY | 2022-05-02 12:37 | XMS_ITS | Encounter Summary ---
:1970 Author Organization [facility] Address [address] [place] [address] Care Team Providers Name Role Phone Unavailable Primary Care Provider Unavailable Reason for Visit Episode Based Medications (Routine) - Closed Specialty Diagnoses / Procedures Referred By Contact Refer red To Contact Medical Oncology / Diagnoses Myelofibrosis (HCC) Janusz Govea Rst [facility] On[facility] Oncology Procedures ONCBCN INFUSION APPOINTMENT REQUEST 09 ONC THER INF [facility] 200 [facility] [address] [place] [phone] Referral ID Status Reason Start Date Expiration Date Visits Requ ested Visits Authorized [id number] Closed 06/06/2020 06/20/2021 99 30 Encounter Details Date Type Department Care Team Description 06/13/2020 Infusion Department of Oncology Janusz Govea M yelofibrosis (HCC) in [facility] [place] [facility] 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 documented as of this encounter Last Filed Vital Signs Vital Sign Reading Time Taken Comments Blood Pressure 120/59 06/13/2020 2:24 PM LOSS CONTROL TECHNICIAN Pulse 75 06/13/2020 2:24 PM LOSS CONTROL TECHNICIAN Temperature 36.7 ??C (98.1 ??F) 06/13/2020 2:24 PM LOSS CONTROL TECHNICIAN Respiratory Rate 18 06/13/2020 2:24 PM LOSS CONTROL TECHNICIAN Oxygen Saturation 99% 06/13/2020 2:24 PM LOSS CONTROL TECHNICIAN Inhaled Oxygen Concentration - - Weight 93 kg (205 lb 0.4 oz) 06/13/2020 10:20 AM LOSS CONTROL TECHNICIAN Height - - Body Mass Index 31.62 06/06/2020 8:02 AM LOSS CONTROL TECHNICIAN documented in 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 Administered Medications Inactive Administered Medications - up to 3 most recent administrations Medication Order MAR Action Action Date Dose Rate Site Research IRB [id number] New Bag 06/13/2020 11:24 AM LOSS CONTROL TECHNICIAN 850 mg 500 mL/hr 9-ING-41 850 mg in NaCl 0.9% (non-PVC) 1,085 mL IVPB 850 mg (rounded from 849.09 mg = 9.3 mg/kg ? 91.3 kg Order-specific weight), intravenous, at 500 mL/hr, Once, On Fri06/13/20 at 1030, For 1 dose, CSTDs cannot be used. Flush with 30ml at IV site following completion of 9-ING-41. Monitor BP (pre dose & post dose), HR, temp, resp (pre-dose and as clinically indicated). Administer using 1.2 micron filter tubing via a peripheral or central line. sodium chloride (flush) 0.9 % injection 30 mL Given 06/13/2020 2:18 PM LOSS CONTROL TECHNICIAN 30 mL 30 mL, intravenous, Once, On Fri06/13/20 at 1030, For 1 dose, Post chemotherapy flush documented in this encounter
--- OUTSIDE RECORDS SUMMARY | 2022-05-02 12:37 | XMS_ITS | Encounter Summary ---
:1970 Author Organization [facility] Address [address] [place] [address] Care Team Providers Name Role Phone Unavailable Primary Care Provider Unavailable Encounter Details Date Type Department Care Team Description 06/06/2020 Clinical Communication Division of Hematology Janusz Govea, in [facility] 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
--- OUTSIDE RECORDS SUMMARY | 2022-05-02 12:37 | XMS_ITS | Encounter Summary ---
:1970 Author Organization [facility] Address [address] [place] [address] Care Team Providers Name Role Phone Unavailable Primary Care Provider Unavailable Encounter Details Date Type Department Care Team Description 06/13/2020 Infusion Department of Infusion Janusz Gove[facility] (HCC[facility] ([facility] [address] [phone] [phone] Social History Tobacco Use Types Packs/Day Years Used Date Smoking Tobacco: Former Smokeless Tobacco: Never Sex Assigned at Date Recorded Female 07/24/2021 11:03 AM 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 documented as of this encounter Last Filed Vital Signs Vital Sign Reading Time Taken Comments Blood Pressure 122/68 06/13/2020 6:07 PM 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 Pulse 79 06/13/2020 6:07 PM 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 Temperature 36.8 ??C (98.2 ??F) 06/13/2020 6:07 PM 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 Respiratory Rate 18 06/13/2020 6:07 PM 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 Oxygen Saturation - - Inhaled Oxygen Concentration - - Weight - - Height - - Body Mass Index - - documented in this encounter Plan of Treatment Pending Results Name Type Priority Associated Diagnoses Date/Ti me Prepare Red Blood Blood Bank Routine Myelofibrosis (HCC) 07/2019 10:56 AM 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 Cells, 1 Units documented as of this encounter Procedures Procedure Name Priority Date/Time Associated Diagnosis Comme nts TRANSFUSE RED BLOOD Routine 06/13/2020 3:43 PM 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 Myelofibros is (HCC) CELLS PREPARE RED BLOOD CELLS Routine 06/13/2020 10:56 AM 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 Myelof ibrosis (HCC) documented in this encounter Results Transfuse Red Blood Cells : (06/13/2020 6:08 PM 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) Janusz AlexandraSZahraa BLOOD TRANSFUSION ORDERABLES Transfuse Red Blood Cells : , 1 Units (06/13/2020 6:08 PM 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) Janusz ArringtonB.S. BLOOD TRANSFUSION ORDERABLES documented in this encounter Visit Diagnoses Diagnosis Myelofibrosis (HCC) - Primary documented in this encounter
--- OUTSIDE RECORDS SUMMARY | 2022-05-02 12:37 | XMS_ITS | Encounter Summary ---
:1970 Author Organization [facility] Address [address] [place] [address] Care Team Providers Name Role Phone Unavailable Primary Care Provider Unavailable Reason for Referral Outpatient (Routine) - Closed Specialty Diagnoses / Procedures Referred By Contact Refer red To Contact Radiology Diagnoses Myelofibrosis (HCC) Janusz Govea [facility] [place] Procedures CT Abdomen Pelvis with IV Contrast CT Abdomen Pelvis without and with IV Contrast [place] CT ABD&PELVIS WO/W CNTRST 200 [place], [place] [phone] Referral ID Status Reason Start Date Expiration Date Visits Requ ested Visits Authorized [id number] Closed 06/02/2020 06/02/2021 1 1 ORK SYSTEMS ENGINEER Reason for Visit Outpatient (Routine) - Closed Specialty Diagnoses / Procedures Referred By Contact Refer red To Contact Radiology Diagnoses Myelofibrosis (HCC) Janusz Govea [facility] [place] Procedures CT Abdomen Pelvis with IV Contrast CT Abdomen Pelvis without and with IV Contrast [place] CT ABD&PELVIS WO/W CNTRST [address] [place] [phone] Referral ID Status Reason Start Date Expiration Date Visits Requ ested Visits Authorized [id number] Closed 06/02/2020 06/02/2021 1 1 Encounter Details Date Type Department Care Team Description 06/05/2020 Hospital Encounter Department of Alexandria Govea ([facility]) Radiology, [facility], in [facility] 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 ORK SYSTEMS ENGINEER documented in this encounter Plan of Treatment Not on filedocumented as of this encounter Procedures Procedure Name Priority Date/Time Associated Diagnosis Comme nts CT ABDOMEN RAD - Routine 06/05/2020 1:48 Myelofibrosis (HCC) Resu lts for this PELVIS WITH IV (most inpatients PM NETWORK SYSTEMS ENGINEER procedure are in CONTRAST and all the results outpatients) section. documented in this encounter Results CT Abdomen Pelvis with IV Contrast (06/05/2020 1:48 PM NETWORK SYSTEMS ENGINEER) Anatomical Region Laterality Modality Abdomen, Pelvis, Abdominal RST LOS, N/A Comp uted Tomography, Computed Abdominal ARZ LOS, Abdominal FLA LOS Esa ography Specimen (Source) Anatomical Collection Method Collection Time Re ceived Time Location / / Volume Laterality 06/05/2020 3:28 PM NETWORK SYSTEMS ENGINEER Impressions 06/05/2020 4:38 PM NETWORK SYSTEMS ENGINEER 1. Marked splenomegaly, with the spleen measuring 33 cm. 2. Small splenic infarct in the anteroin ferior portion of the spleen. 3. Indeterminate 1.5 cm left adrenal mas s, likely an adenoma. Narrative 06/05/2020 4:38 PM NETWORK SYSTEMS ENGINEER EXAM: ??CT ABDOMEN PELVIS WITH IV CONTRAST [...] mas s, likely an adenoma. Janusz Ardon [facility] PROCEDURES documented in this encounter Visit Diagnoses Diagnosis Myelofibrosis (HCC) documented in this encounter Administered Medications Inactive Administered Medications - up to 3 most recent administrations Medication Order MAR Action Action Date Dose Rate Site iohexoL 300 mg iodine/mL solution Given 06/05/2020 1:36 PM NETWORK SYSTEMS ENGINEER 1 40 mL 1-200 mL (OMNIPAQUE) 1-200 mL, intravenous, Once in imaging, contrast, Starting on 06/05/20 at 1308, For 1 dose, Imaging Protocol Orders, Dose per Radiant Medication Guidelines sodium chloride (PF) 0.9 % injection 1-1 00 mL Given 06/05/2020 1:36 PM NETWORK SYSTEMS ENGINEER 50 mL 1-100 mL, intravenous, Once, On 06/05/20 at 1315, For 1 dose, Imaging Protocol Orders documented in this encounter
--- OUTSIDE RECORDS SUMMARY | 2022-05-02 12:37 | XMS_ITS | Encounter Summary ---
:1970 Author Organization [facility] Address [address] [place] [address] Care Team Providers Name Role Phone Unavailable Primary Care Provider Unavailable Encounter Details Date Type Department Care Team Description 06/06/2020 Hospital Encounter Department of Gangat, Myelofib rosis ([facility]) Laboratory Medicine [facility], and Pathology, [facility], in [address] [place] [phone] [place], [place] [phone] (Work) [phone] Social History Tobacco Use Types Packs/Day Years Used Date Smoking Tobacco: Former Smokeless Tobacco: Never Sex Assigned at Date Recorded Female 07/24/2021 11:03 AM 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 documented in this encounter Results Test, Qualitative, Urine (06/06/2020 7:51 AM MARKETING REPRESENTATIVE) P athologist Signature Negative 06/06/2020 TUNDE Test, U 8:27 AM MARKETING REPRESENTATIVE Specimen Anatomical Collection Method Collection Time Receive d Time (Source) Location / / Volume Laterality Urine (Urine, 06/06/2020 7:51 AM 06/06/20 7:51 Clean Catch) MARKETING REPRESENTATIVE AM MARKETING REPRESENTATIVE Janusz Ardon LAB URINE ORDERABLES Performing Organization Address City/State/ZIP Code Phon e Number [facility] - [address] [place], [place] [address] [place] [address] [facility] [address] documented in this encounter Visit Diagnoses Diagnosis Myelofibrosis (HCC) documented in this encounter
--- OUTSIDE RECORDS SUMMARY | 2022-05-02 12:37 | XMS_ITS | Encounter Summary ---
:1970 Author Organization [facility] Address [address] [place] [address] Care Team Providers Name Role Phone Unavailable Primary Care Provider Unavailable Encounter Details Date Type Department Care Team Description 06/13/2020 Orders Only Division of Hematology Janusz Govea M yelofibrosis (HCC) in [facility] 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
--- OUTSIDE RECORDS SUMMARY | 2022-05-02 12:37 | XMS_ITS | Encounter Summary ---
:1970 Author Organization 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
--- OUTSIDE RECORDS SUMMARY | 2022-05-02 12:37 | XMS_ITS | Encounter Summary ---
:1970 Author Organization [facility] Address [address] [place] [address] Care Team Providers Name Role Phone Unavailable Primary Care Provider Unavailable Reason for Visit Outpatient (Routine) - Closed Specialty Diagnoses / Procedures Referred By Contact Refer red To Contact Hematology Oncology Diagnoses Myelofibrosis (HCC) [facility] [address] [place] [phone] Referral ID Status Reason Start Date Expiration Date Visits Requ ested Visits Authorized [id number] Closed 06/02/2020 06/02/2021 1 1 Encounter Details Date Type Department Care Team Description 06/06/2020 Office Visit Division of Hematology [facility], Myelo fibrosis (HCC) in [facility] (Primary Dx) [place] [facility] 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 OPERATOR documented as of this encounter Last Filed Vital Signs Vital Sign Reading Time Taken Comments Blood Pressure 124/80 06/06/2020 8:02 AM MERRY GO ROUND OPERATOR Pulse 92 06/06/2020 8:02 AM MERRY GO ROUND OPERATOR Temperature 36.6 ??C (97.8 ??F) 06/06/2020 8:02 AM MERRY GO ROUND OPERATOR Respiratory Rate - - Oxygen Saturation - - Inhaled Oxygen Concentration - - Weight 90.2 kg (198 lb 13.7 oz) 06/06/2020 8:02 AM MERRY GO ROUND OPERATOR Height 171.5 cm (5' 7.52) 06/06/2020 8:02 AM MERRY GO ROUND OPERATOR Body Mass Index 30.67 06/06/2020 8:02 AM MERRY GO ROUND OPERATOR documented in this encounter Progress Notes Janusz Govea M.B[facility] 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 HISTORY OF PRESENT ILLNESS Ms. Dobbs is a pleasant 50-year-old lady with primary myelofibrosis in August 2015. Main issues have been marked splenomegaly requiring narcotics for pain control. She has drenching night sweats on a daily basis. She also has transfusion-dependent anemia for which she was on Aranesp but has lost response. She receives 1 unit of RBC transfusions every 2-3 weeks. Her last transfusion was 1 unit on 05/29/2020. . Prior treatments for her myelofibrosis included Jakafi. She was intolerant and developed transfusion dependence. Subsequently, she was on the alisertib clinical trial in April 2016, completed 4 cycles of therapy without much benefit, and had toxicities in the form of fatigue and alopecia. Today is cycle 1, day 1 of the 9-ING-41 study. Stool count is 1 per day. Reports discomfort of small joints of the hands. ALLERGIES/CONTRAINDICATIONS No known allergies. CURRENT MEDICATIONS Ibuprofen 200 mg tablet p.r.n. Ativan 0.5 mg tablet. MS Contin 60 tablet. MS-IR 15 mg tablet. Oxycodone 5 mg intermediate release capsules. Senna 8.6 mg tablet. Tiffanie-[place]. OBJECTIVE PHYSICAL EXAMINATION Vital Signs: Height is 171.5 cm. Weight is 90.2 kg. Temperature 97.8. Pulse 92, regular. Blood pressure 124/80. Respiratory rate is 10. ECOG is 1. General: In no acute distress. Lungs: Clear to auscultation. Heart: Regular rate and rhythm with a systolic murmur. Abdomen: Markedly distended. Spleen is 22 cm below the left costal margin. Also crosses the midline.Liver is not palpable. Extremities: 1+ pedal edema bilaterally. Skin: small bruises noted over the right upper extremity. DIAGNOSTICS Hemoglobin 7.3 g/dL, white count is 2.9, platelets 106. Creatinine 1.2. 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 Side effects have been reviewed with her. We will monitor her closely through the infusion. We will set up weekly CBC checks RBC transfusion if hemoglobin is less than 7 g/dL. #4 Hyperuricemia Provided a prescription for allopurinol 300 mg daily, Nasrin ForemanSZahraa CT CT Job ID: [id number] Y GO ROUND OPERATOR documented in this encounter Miscellaneous Notes Addendum Note - Caity Bradley - 06/06/2020 8:00 AM MERRY GO ROUND OPERATOR Addended by: CAITY BRADLEY on: 06/13/2020 06:31 AM Modules accepted: Orders Y GO ROUND OPERATOR Addendum Note - Caity Bradley - 06/06/2020 8:00 AM MERRY GO ROUND OPERATOR Addended by: CAITY BRADLEY on: 06/16/2020 07:15 AM Modules accepted: Orders Y GO ROUND OPERATOR Addendum Note - Caity Bradley - 06/06/2020 8:00 AM MERRY GO ROUND OPERATOR Addended by: CAITY BRADLEY on: 06/20/2020 07:08 AM Modules accepted: Orders Y GO ROUND OPERATOR documented in 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
--- OUTSIDE RECORDS SUMMARY | 2022-05-02 12:37 | XMS_ITS | Encounter Summary ---
:1970 Author Organization [facility] Address [address] [place] [address] Care Team Providers Name Role Phone Unavailable Primary Care Provider Unavailable Reason for Visit Episode Based Medications (Routine) - Closed Specialty Diagnoses / Procedures Referred By Contact Refer red To Contact Medical Oncology / Diagnoses Myelofibrosis (HCC) Janusz Govea Rst Inf Onc Rogo Oncology Procedures ONCBCN INFUSION APPOINTMENT REQUEST 09 ONC THER INF [facility] 200 [facility] [facility] [address] [place] [phone] Referral ID Status Reason Start Date Expiration Date Visits Requ ested Visits Authorized [id number] Closed 06/06/2020 06/20/2021 99 30 Encounter Details Date Type Department Care Team Description 06/16/2020 Infusion Department of Oncology Janusz Govea M yelofibrosis (HCC) in [facility] (Primary Dx) [address] [place] [address] [address] [place] [phone] Social History Tobacco Use Types Packs/Day Years Used Date Smoking Tobacco: Former Smokeless Tobacco: Never Sex Assigned at Date Recorded Female 07/24/2021 11:03 AM DOCUMENTATION CLERK documented as of this encounter Last Filed Vital Signs Vital Sign Reading Time Taken Comments Blood Pressure 138/47 06/16/2020 10:57 AM DOCUMENTATION CLERK Pulse 77 06/16/2020 10:57 AM DOCUMENTATION CLERK Temperature 36.2 ??C (97.1 ??F) 06/16/2020 10:57 AM DOCUMENTATION CLERK Respiratory Rate - - Oxygen Saturation - - Inhaled Oxygen Concentration - - Weight 93.7 kg (206 lb 9.1 oz) 06/16/2020 10:57 AM DOCUMENTATION CLERK shoes on Height - - Body Mass Index 31.86 06/06/2020 8:02 AM DOCUMENTATION CLERK documented in 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 Administered Medications Inactive Administered Medications - up to 3 most recent administrations Medication Order MAR Action Action Date Dose Rate Site Research IRB [id number] New Bag 06/16/2020 11:52 AM DOCUMENTATION CLERK 850 mg 500 mL/hr 9-ING-41 850 mg [...] injection 30 mL Given 06/16/2020 2:40 PM DOCUMENTATION CLERK 30 mL 30 mL, intravenous, Once, On Fri06/16/20 at 1100, For 1 dose, Post chemotherapy flush documented in this encounter
--- OUTSIDE RECORDS SUMMARY | 2022-05-02 12:37 | XMS_ITS | Encounter Summary ---
:1970 Author Organization [facility] Address [address] [place] [address] Care Team Providers Name Role Phone Unavailable Primary Care Provider Unavailable Encounter Details Date Type Department Care Team Description 06/05/2020 Orders Only Division of Hematology in [place], [place] M.B.B.S. 200 [address] [facility] [address] [place] [address] [place], [place] [phone] (Wo rk) Social History Tobacco Use Types Packs/Day Years Used Date Smoking Tobacco: Former Smokeless Tobacco: Never Sex Assigned at Date Recorded Female 07/24/2021 11:03 AM [employer] documented as of 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
--- OUTSIDE RECORDS SUMMARY | 2022-05-02 12:37 | XMS_ITS | Encounter Summary ---
:1970 Author Organization [facility] Address [address] [place] [address] Care Team Providers Name Role Phone Unavailable Primary Care Provider Unavailable Encounter Details Date Type Department Care Team Description 06/13/2020 Clinical Communication Division of Hematology Reema Goveaky, in [facility] Ronaldo.B.S. 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 Antibody Screen CANCELED 06/13/2020 12:09 PM POULTRY CLEANER ETRM Comment: Result canceled by the ancillar y. Type & Screen Expiration CANCELED 06/13/2020 12:0 9 PM POULTRY CLEANER ETRM Comment: Result canceled by the ancillar y. Testing Location CANCELED 06/13/2020 12:09 PM POULTRY CLEANER ETRM Comment: Result canceled by the ancillar y. Specimen Anatomical Collection Method Collection Time Receive d Time (Source) Location / / Volume Laterality Blood (Blood, 06/13/2020 8:41 AM 06/13/20 20 Venous) POULTRY CLEANER 12:06 PM POULTRY CLEANER Narrative [facility] - [facility] - 06/13/2020 12:09 PM POULTRY CLEANER Type and Screen, RBC was cancelled on 06/13/2020 at 12:09; Duplicate test request. Janusz Ardon LAB BLOOD BANK TEST ORDERABL ES Performing Organization Address City/State/ZIP Code Phon e Number [facility] - [facility] [address] [place], [place] [address] [facility] [place] [address] Laboratories-[facility] [address] documented in this encounter Visit Diagnoses Diagnosis Myelofibrosis (HCC) - Primary documented in this encounter
--- OUTSIDE RECORDS SUMMARY | 2022-05-02 12:37 | XMS_ITS | Encounter Summary ---
:1970 Author Organization [facility] Address [address] [place] [address] Care Team Providers Name Role Phone Unavailable Primary Care Provider Unavailable Encounter Details Date Type Department Care Team Description 06/07/2020 Orders Only Division of Hematology in [place], [place] M.B.B.S. 200 1ST [facility] [address] [place] [address] [place], [place] [phone] (Wo rk) Social History Tobacco Use Types Packs/Day Years Used Date Smoking Tobacco: Former Smokeless Tobacco: Never Sex Assigned at Date Recorded Female 07/24/2021 11:03 AM BUSINESS SYSTEMS ADVISOR documented as of 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
--- OUTSIDE RECORDS SUMMARY | 2022-05-02 12:37 | XMS_ITS | Encounter Summary ---
:1970 Author Organization [facility] Address [address] [place] [address] Care Team Providers Name Role Phone Unavailable Primary Care Provider Unavailable Encounter Details Date Type Department Care Team Description 06/06/2020 Hospital Encounter Department of Gangat, Myelofib rosis ([facility]) Laboratory Medicine [facility], and Pathology, [facility], in [address] [place] [address] [place], [place] [phone] (Work) [phone] Social History Tobacco Use Types Packs/Day Years Used Date Smoking Tobacco: Former Smokeless Tobacco: Never Sex Assigned at Date Recorded 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 CBC WITH DIFFERENTIAL, B Routine 06/06/2020 7:20 Myelofibrosis (HCC) Results for this AM WOUND CARE NURSE procedure are i n the results section. URIC ACID, S/P Routine 06/06/2020 7:20 Myelofibrosis (HCC) Res ults for this AM WOUND CARE NURSE procedure are i n the results section. BUN (BLOOD UREA Routine 06/06/2020 7:20 Myelofibrosis (HCC) Re sults for this NITROGEN), S/P AM WOUND CARE NURSE procedure are in the results section. ALANINE AMINOTRANSFERASE Routine 06/06/2020 7:20 Myelofibrosis (HCC) Results for this (ALT), S/P AM WOUND CARE NURSE procedure are i n the results section. ASPARTATE Routine 06/06/2020 7:20 Myelofibrosis (HCC) Resul ts for this AMINOTRANSFERASE (AST), AM WOUND CARE NURSE proc edure are in S/P the results section. SODIUM, S/P Routine 06/06/2020 7:20 Myelofibrosis (HCC) Resul ts for this AM WOUND CARE NURSE procedure are i n the results section. PROTEIN, TOTAL, S/P Routine 06/06/2020 7:20 Myelofibrosis (HCC ) Results for this AM WOUND CARE NURSE procedure are i n the results section. POTASSIUM, S/P Routine 06/06/2020 7:20 Myelofibrosis (HCC) Res ults for this AM WOUND CARE NURSE procedure are i n the results section. ALKALINE PHOSPHATASE, Routine 06/06/2020 7:20 Myelofibrosis (H CC) Results for this S/P AM WOUND CARE NURSE procedure are i n the results section. MAGNESIUM, S Routine 06/06/2020 7:20 Myelofibrosis (HCC) Resul ts for this AM WOUND CARE NURSE procedure are i n the results section. GLUCOSE, RANDOM, S/P Routine 06/06/2020 7:20 Myelofibrosis (HC C) Results for this AM WOUND CARE NURSE procedure are i n the results section. CREATININE WITH EGFR, Routine 06/06/2020 7:20 Myelofibrosis (H CC) Results for this S/P AM WOUND CARE NURSE procedure are i n the results section. CHLORIDE, S/P Routine 06/06/2020 7:20 Myelofibrosis (HCC) Resu lts for this AM WOUND CARE NURSE procedure are i n the results section. CALCIUM, TOT, S/P Routine 06/06/2020 7:20 Myelofibrosis (HCC) Results for this AM WOUND CARE NURSE procedure are i n the results section. BILIRUBIN, TOT, S/P Routine 06/06/2020 7:20 Myelofibrosis (HCC ) Results for this AM WOUND CARE NURSE procedure are i n the results section. ALBUMIN, S/P Routine 06/06/2020 7:20 Myelofibrosis (HCC) Resul ts for this AM WOUND CARE NURSE procedure are i n the results section. documented in this encounter Results (ABNORMAL) Morphology Evaluation (Special Smear) (06/06/2020 7:20 AM WOUND CARE NURSE) [facility] gist Method Time Signature Neutrophilic Segs 77 (H) 50 - 75 % 06/06/2020 DHPM and Bands 9:00 AM WOUND CARE NURSE Lymphocytes 12 (L) 18 - 42 % 06/06/2020 DHPM 9:00 AM WOUND CARE NURSE Monocytes 1 (L) 2 - 11 % 06/06/2020 DHPM 9:00 AM WOUND CARE NURSE Eosinophils 1 1 - 3 % 06/06/2020 DHPM 9:00 AM WOUND CARE NURSE Metamyelocytes 2 (H) <1 % 06/06/2020 DHPM 9:00 AM WOUND CARE NURSE Myelocytes 7 (H) <0.5 % 06/06/2020 DHPM 9:00 AM WOUND CARE NURSE Nucleated RBC 6 /100 WBC 06/06/2020 DHPM 9:00 AM WOUND CARE NURSE Manual Absolute 2.23 1.56 - 06/06/2020 DHPM Neutrophil Count 6.45 9:00 AM WOUND CARE NURSE x10(9)/L Comment: ----ADDITIONAL INFORMATION---- The manual absolute neutrophil count is derived from a manual differential count and therefore is not exactly comparable to the automated absolute halie trophil count. Specimen Anatomical Collection Method Collection Time Receive d Time (Source) Location / / Volume Laterality Blood 06/06/2020 7:20 AM 0 7:54 WOUND CARE NURSE AM WOUND CARE NURSE Janusz Dillon.B.B.S. LAB BLOOD ADD-ON Performing Organization Address City/[facility]/ZIP Code Phon e Number [facility] - [address] [place], [place] [address] [place] [address] [facility] 200 [address] [facility] Protein, Total (06/06/2020 7:20 AM WOUND CARE NURSE) athologist Signature Protein, Total, 6.3 6.3 - 7.9 06/06/2020 DTL S g/dL 8:35 AM WOUND CARE NURSE Specimen Anatomical Collection Method Collection Time Receive d Time (Source) Location / / Volume Laterality Blood (Blood, 06/06/2020 7:20 AM 06/06/20 8:14 Venous) WOUND CARE NURSE AM WOUND CARE NURSE Janusz Dillon.B.B.S. LAB BLOOD ADD-ON Performing Organization Address City/[facility]/ZIP [facility] Phon e Number [facility] - [address] [place] [address] [place] [address] [facility] [address] [facility] Albumin (06/06/2020 7:20 AM WOUND CARE NURSE) athologist Signature Albumin, S 4.5 3.5 - 5.0 06/06/2020 DTL g/dL 8:35 AM WOUND CARE NURSE Specimen Anatomical Collection Method Collection Time Receive d Time (Source) Location / / Volume Laterality Blood (Blood, 06/06/2020 7:20 AM 06/06/20 20 8:14 Venous) WOUND CARE NURSE AM WOUND CARE NURSE Janusz Dillon.B.B.S. LAB BLOOD ADD-ON Performing Organization Address City/[facility]/ZIP [facility] Phon e Number [facility] - 200 [address] [place], [place] [address] [place] [address] [place] [address] [facility] Glucose, Random (06/06/2020 7:20 AM WOUND CARE NURSE) P athologist Signature Glucose, S 93 70 - 140 06/06/2020 DTL mg/dL 8:35 AM WOUND CARE NURSE Specimen Anatomical Collection Method Collection Time Receive d Time (Source) Location / / Volume Laterality Blood (Blood, 06/06/2020 7:20 AM 06/06/20 8:14 Venous) WOUND CARE NURSE AM WOUND CARE NURSE Janusz ArringtonB.S. LAB BLOOD TROPONIN Performing Organization Address [facility] Phon e Number [facility] - 200 [place] [address] [facility] [address] Laboratories-[address] (ABNORMAL) Uric Acid (06/06/2020 7:20 AM WOUND CARE NURSE) P athologist Signature Uric Acid, S 8.5 (H) 2.7 - 6.1 06/06/2020 DTL mg/dL 8:35 AM WOUND CARE NURSE Specimen Anatomical Collection Method Collection Time Receive d Time (Source) Location / / Volume Laterality Blood (Blood, 06/06/2020 7:20 AM 06/06/20 8:14 Venous) WOUND CARE NURSE AM WOUND CARE NURSE Janusz ArringtonB.S. LAB BLOOD ADD-ON Performing Organization Address City/[facility] Phon e Number [facility] - [address] (ABNORMAL) Creatinine with Estimated GFR (06/06/2020 7:20 AM WOUND CARE NURSE) Analysis Performed At Patho logist Time Signature Creatinine 1.20 (H) 0.59 - 06/06/2020 DTL 1.04 mg/dL 8:35 AM WOUND CARE NURSE eGFR-Non 52 (L) >=60 06/06/2020 DTL Black/ mL/min/BSA 8:35 AM WOUND CARE NURSE [place] Comment: ----ADDITIONAL INFORMATION---- Estimated GFR calculated using the 2009 CKD_EPI creatinine equation. eGFR-Black/ 60 >=60 mL/min/BSA 2019 8:35 AM WOUND CARE NURSE DTL Comment: ----ADDITIONAL INFORMATION---- Estimated GFR calculated using the 2009 CKD_EPI creatinine equation. Specimen Anatomical Collection Method Collection Time Receive d Time (Source) Location / / Volume Laterality Blood (Blood, 06/06/2020 7:20 AM 06/06/20 8:14 Venous) WOUND CARE NURSE AM WOUND CARE NURSE Janusz Dillon.B.B.S. LAB BLOOD ADD-ON Performing Organization Address City/[facility]/ZIP Code Phon e Number [facility] - 200 [place], [place] [address] [place] [address] [address] (ABNORMAL) BUN (Blood Urea Nitrogen) (06/06/2020 7:20 AM WOUND CARE NURSE) athologist Signature BUN (Blood Urea 28 (H) 6 - 21 06/06/2020 DTL Nitrogen), S mg/dL 8:35 AM WOUND CARE NURSE Specimen Anatomical Collection Method Collection Time Receive d Time (Source) Location / / Volume Laterality Blood (Blood, 06/06/2020 7:20 AM 06/06/20 8:14 Venous) WOUND CARE NURSE AM WOUND CARE NURSE Janusz Dillon.B.B.S. LAB BLOOD ADD-ON Performing Organization Address City/[facility]/ZIP Code Phon e Number [facility] - 200 [place] [phone] [address] Bilirubin, Total (06/06/2020 7:20 AM WOUND CARE NURSE) athologist Signature Bilirubin, 0.7 <=1.2 mg/dL 06/06/2020 DT Total, S 8:35 AM WOUND CARE NURSE Specimen Anatomical Collection Method Collection Time Receive d Time (Source) Location / / Volume Laterality Blood (Blood, 06/06/2020 7:20 AM 06/06/20 8:14 Venous) WOUND CARE NURSE AM WOUND CARE NURSE Janusz Govea M.B.B.S. LAB BLOOD ADD-ON Performing Organization Address City/State/ZIP Code Phon e Number [facility] - 200 [place], [place] [address] [place] [id number] [place] [address] Calcium, Total (06/06/2020 7:20 AM WOUND CARE NURSE) athologist Signature Calcium, Total, 8.8 8.6 - 10.0 06/06/2020 DTL S mg/dL 8:35 AM WOUND CARE NURSE Specimen Anatomical Collection Method Collection Time Receive d Time (Source) Location / / Volume Laterality Blood (Blood, 06/06/2020 7:20 AM 06/06/20 8:14 Venous) WOUND CARE NURSE AM WOUND CARE NURSE Nasbaltazarma Harrygat M.B.B.S. LAB BLOOD ADD-ON Performing Organization Address City/State/ZIP Code Phon e Number [facility] - [address] [place], [place] [address] [place] [address] [facility] [address] Chloride (06/06/2020 7:20 AM WOUND CARE NURSE) P athologist Signature Chloride, S 104 98 - 107 06/06/2020 DTL mmol/L 8:35 AM WOUND CARE NURSE Specimen Anatomical Collection Method Collection Time Receive d Time (Source) Location / / Volume Laterality Blood (Blood, 06/06/2020 7:20 AM 06/06/20 8:14 Venous) WOUND CARE NURSE AM WOUND CARE NURSE Nasbaltazarma Harrygat M.B.B.S. LAB BLOOD ADD-ON Performing Organization Address City/State/ZIP Code Phon e Number [facility] - [address] [place], [place] [address] [place] [address] [facility] [address] Magnesium (06/06/2020 7:20 AM WOUND CARE NURSE) P athologist Signature Magnesium, S 2.3 1.7 - 2.3 06/06/2020 DTL mg/dL 8:35 AM WOUND CARE NURSE Specimen Anatomical Collection Method Collection Time Receive d Time (Source) Location / / Volume Laterality Blood (Blood, 06/06/2020 7:20 AM 06/06/20 8:14 Venous) WOUND CARE NURSE AM WOUND CARE NURSE Janusz Mcdonaldgat M.B.B.S. LAB BLOOD ADD-ON Performing Organization Address City/State/ZIP Code Phon e Number [facility] - [address] [place], [place] [address] [place] [address] [facility] [address] Potassium (06/06/2020 7:20 AM WOUND CARE NURSE) P athologist Signature Potassium, S 5.1 3.6 - 5.2 06/06/2020 DTL mmol/L 8:35 AM WOUND CARE NURSE Specimen Anatomical Collection Method Collection Time Receive d Time (Source) Location / / Volume Laterality Blood (Blood, 06/06/2020 7:20 AM 06/06/20 8:14 Venous) WOUND CARE NURSE AM WOUND CARE NURSE Janusz Govea M.B.B.S. LAB BLOOD ADD-ON Performing Organization Address City/[facility]/ZIP [facility] Phon e Number [facility] - [address] Sodium (06/06/2020 7:20 AM WOUND CARE NURSE) P athologist Signature Sodium, S 139 135 - 145 06/06/2020 8:35 DTL mmol/L AM WOUND CARE NURSE Specimen Anatomical Collection Method Collection Time Receive d Time (Source) Location / / Volume Laterality Blood (Blood, 06/06/2020 7:20 AM 06/06/20 8:14 Venous) WOUND CARE NURSE AM WOUND CARE NURSE Janusz Govea M.B.B.S. LAB BLOOD ADD-ON Performing Organization Address City/[facility] Phon e Number [facility] - [address] [place] [address] [facility] (ABNORMAL) Alkaline Phosphatase (06/06/2020 7:20 AM WOUND CARE NURSE) P athologist Signature Alkaline 34 (L) 35 - 104 06/06/2020 DTL Phosphatase, S U/L 8:35 AM WOUND CARE NURSE Specimen Anatomical Collection Method Collection Time Receive d Time (Source) Location / / Volume Laterality Blood (Blood, 06/06/2020 7:20 AM 06/06/20 20 8:14 Venous) WOUND CARE NURSE AM WOUND CARE NURSE Janusz Govea M.B.B.S. LAB BLOOD ADD-ON Performing Organization Address City/State/ZIP [facility] Phon e Number [facility] - [address] [place] [address] [facility] AST (Aspartate Aminotransferase) (06/06/2020 7:20 AM WOUND CARE NURSE) Patholo gist Method Time Signature Aspartate 29 8 - 43 06/06/2020 DTL Aminotransferase U/L 8:35 AM WOUND CARE NURSE (AST), S Specimen Anatomical Collection Method Collection Time Receive d Time (Source) Location / / Volume Laterality Blood (Blood, 06/06/2020 7:20 AM 06/06/20 20 8:14 Venous) WOUND CARE NURSE AM WOUND CARE NURSE Janusz Dillon.B.B.S. LAB BLOOD ADD-ON Performing Organization Address [facility] Phon e Number [facility] - 200 [place] [address] 05 [place] [address] ALT (Alanine Aminotransferase) (06/06/2020 7:20 AM WOUND CARE NURSE) [facility] Method Time Signature Alanine 17 7 - 45 06/06/2020 DTL Aminotransferase U/L 8:35 AM WOUND CARE NURSE (ALT), S Specimen Anatomical Collection Method Collection Time Receive d Time (Source) Location / / Volume Laterality Blood (Blood, 06/06/2020 7:20 AM 06/06/20 8:14 Venous) WOUND CARE NURSE AM WOUND CARE NURSE Janusz Dillon.Cain.B.S. LAB BLOOD ADD-ON Performing Organization Address [facility] Phon e Number [facility] - [address] (ABNORMAL) CBC with Differential, Blood (06/06/2020 7:20 AM WOUND CARE NURSE) [facility] Method Time Signature Hemoglobin 7.3 (L) 11.6 - 06/06/2020 DTL 15.0 g/dL 8:03 AM WOUND CARE NURSE Hematocrit 25.1 (L) 35.5 - 06/06/2020 DTL 44.9 % 8:03 AM WOUND CARE NURSE Erythrocytes 2.70 (L) 3.92 - 06/06/2020 DTL 5.13 8:03 AM WOUND CARE NURSE x10(12)/L MCV 93.0 78.2 - 06/06/2020 DTL 97.9 fL 8:03 AM WOUND CARE NURSE RBC Distrib Width 27.9 (H) 12.2 - 06/06/2020 DTL 16.1 % 8:03 AM WOUND CARE NURSE Platelet Count 106 (L) 157 - 371 06/06/2020 DTL x10(9)/L 8:56 AM WOUND CARE NURSE Leukocytes 2.9 (L) 3.4 - 9.6 06/06/2020 DTL x10(9)/L 9:00 AM WOUND CARE NURSE Comment: Results confirmed by smear. Neutrophils SeeComment 1.56 - 6.45 x10(9)/L 06/06/2020 9:00 AM WOUND CARE NURSE DTL Comment: Auto-diff results not valid. Se e manual differential. Specimen Anatomical Collection Method Collection Time Receive d Time (Source) Location / / Volume Laterality Blood (Blood, 06/06/2020 7:20 AM 06/06/20 7:54 Venous) WOUND CARE NURSE AM WOUND CARE NURSE Janusz Ardon LAB BLOOD ADD-ON Performing Organization Address City/State/ZIP Code Phon e Number [facility] - [address] [place], [place] [address] [facility] [address] Laboratories-[facility] [address] documented in this encounter Visit Diagnoses Diagnosis Myelofibrosis (HCC) documented in this encounter
--- OUTSIDE RECORDS SUMMARY | 2022-05-02 12:37 | XMS_ITS | Encounter Summary ---
:1970 Author Organization [facility] Address [address] [place] [address] Care Team Providers Name Role Phone Unavailable Primary Care Provider Unavailable Encounter Details Date Type Department Care Team Description 06/13/2020 Orders Only Division of Hematology Janusz Govea M yelofibrosis (HCC) in [facility].B.B.S. 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
--- OUTSIDE RECORDS SUMMARY | 2022-05-02 12:37 | XMS_ITS | Encounter Summary ---
:1970 Author Organization [facility] Address [address] [place] [id number] Care Team Providers Name Role Phone Unavailable Primary Care Provider Unavailable Encounter Details Date Type Department Care Team Description 06/13/2020 Hospital Encounter Department of Gangat, Myelofib rosis ([facility]) Laboratory Medicine [facility], and Pathology, [facility], in [address] [place] [id number] [place], [place] [phone] (Work) [phone] Social History Tobacco Use Types Packs/Day Years Used Date Smoking Tobacco: Former Smokeless Tobacco: Never Sex Assigned at Date Recorded Female 07/24/2021 11:03 AM HAND STEMMER documented as of this encounter Medications at [...] Routine 06/13/2020 8:41 Results for this AM HAND STEMMER procedure are i n the results section. CBC WITH DIFFERENTIAL, B Routine 06/13/2020 8:41 Myelofibrosis (HCC) Results for this AM HAND STEMMER procedure are i n the results section. URIC ACID, S/P Routine 06/13/2020 8:41 Myelofibrosis (HCC) Res ults for this AM HAND STEMMER procedure are i n the results section. BUN (BLOOD UREA Routine 06/13/2020 8:41 Myelofibrosis (HCC) Re sults for this NITROGEN), S/P AM HAND STEMMER procedure are in the results section. ALANINE AMINOTRANSFERASE Routine 06/13/2020 8:41 Myelofibrosis (HCC) Results for this (ALT), S/P AM HAND STEMMER procedure are i n the results section. ASPARTATE Routine 06/13/2020 8:41 Myelofibrosis (HCC) Resul ts for this AMINOTRANSFERASE (AST), AM HAND STEMMER proc edure are in S/P the results section. SODIUM, S/P Routine 06/13/2020 8:41 Myelofibrosis (HCC) Resul ts for this AM HAND STEMMER procedure are i n the results section. PROTEIN, TOTAL, S/P Routine 06/13/2020 8:41 Myelofibrosis (HCC ) Results for this AM HAND STEMMER procedure are i n the results section. POTASSIUM, S/P Routine 06/13/2020 8:41 Myelofibrosis (HCC) Res ults for this AM HAND STEMMER procedure are i n the results section. ALKALINE PHOSPHATASE, Routine 06/13/2020 8:41 Myelofibrosis (H CC) Results for this S/P AM HAND STEMMER procedure are i n the results section. MAGNESIUM, S Routine 06/13/2020 8:41 Myelofibrosis (HCC) Resul ts for this AM HAND STEMMER procedure are i n the results section. GLUCOSE, RANDOM, S/P Routine 06/13/2020 8:41 Myelofibrosis (HC C) Results for this AM HAND STEMMER procedure are i n the results section. CREATININE WITH EGFR, Routine 06/13/2020 8:41 Myelofibrosis (H CC) Results for this S/P AM HAND STEMMER procedure are i n the results section. CHLORIDE, S/P Routine 06/13/2020 8:41 Myelofibrosis (HCC) Resu lts for this AM HAND STEMMER procedure are i n the results section. CALCIUM, TOT, S/P Routine 06/13/2020 8:41 Myelofibrosis (HCC) Results for this AM HAND STEMMER procedure are i n the results section. BILIRUBIN, TOT, S/P Routine 06/13/2020 8:41 Myelofibrosis (HCC ) Results for this AM HAND STEMMER procedure are i n the results section. ALBUMIN, S/P Routine 06/13/2020 8:41 Myelofibrosis (HCC) Resul ts for this AM HAND STEMMER procedure are i n the results section. documented in this encounter Results (ABNORMAL) Morphology Evaluation (Special Smear) (06/13/2020 8:41 AM HAND STEMMER) [facility] gist Method Time Signature Neutrophilic Segs 72 50 - 75 % 06/13/2020 DHPM and Bands 10:24 AM HAND STEMMER Lymphocytes 12 (L) 18 - 42 % 06/13/2020 DHPM 10:24 AM HAND STEMMER Monocytes 2 2 - 11 % 06/13/2020 DHPM 10:24 AM HAND STEMMER Eosinophils 1 1 - 3 % 06/13/2020 DHPM 10:24 AM HAND STEMMER Metamyelocytes 3 (H) <1 % 06/13/2020 DHPM 10:24 AM HAND STEMMER Myelocytes 9 (H) <0.5 % 06/13/2020 DHPM 10:24 AM HAND STEMMER Blasts 1 (H) <1 % 06/13/2020 DHPM 10:24 AM HAND STEMMER Nucleated RBC 5 /100 WBC 06/13/2020 DHPM 10:24 AM HAND STEMMER Manual Absolute 2.09 1.56 - 06/13/2020 DHPM Neutrophil Count 6.45 10:24 AM HAND STEMMER x10(9)/L Comment: ----ADDITIONAL INFORMATION---- The manual absolute neutrophil count is derived from a manual differential count and therefore is not exactly comparable to the automated absolute halie trophil count. Specimen Anatomical Collection Method Collection Time Receive d Time (Source) Location / / Volume Laterality Blood 06/13/2020 8:41 AM 0 9:16 HAND STEMMER AM HAND STEMMER Janusz Dillon.B.B.S. LAB BLOOD ADD-ON Performing Organization Address City/[facility]/ZIP Code Phon e Number [facility] - [address] [place], [place] [address] (ABNORMAL) Protein, Total (06/13/2020 8:41 AM HAND STEMMER) athologist Signature Protein, 5.9 (L) 6.3 - 7.9 06/13/2020 DTL Total, S g/dL 9:44 AM HAND STEMMER Specimen Anatomical Collection Method Collection Time Receive d Time (Source) Location / / Volume Laterality Blood (Blood, 06/13/2020 8:41 AM 06/13/20 20 9:26 Venous) HAND STEMMER AM HAND STEMMER Janusz Dillon.B.B.S. LAB BLOOD ADD-ON Performing Organization Address City/[facility] Code Phon e Number [facility] - [address] [place], [place] [address] [place] [address] [place], [place] [phone] [place] [address] Albumin (06/13/2020 8:41 AM HAND STEMMER) athologist Signature Albumin, S 4.3 3.5 - 5.0 06/13/2020 DTL g/dL 9:44 AM HAND STEMMER Specimen Anatomical Collection Method Collection Time Receive d Time (Source) Location / / Volume Laterality Blood (Blood, 06/13/2020 8:41 AM 06/13/20 20 9:26 Venous) HAND STEMMER AM HAND STEMMER Janusz Dillon.B.B.S. LAB BLOOD ADD-ON Performing Organization Address City/State/ZIP Code Phon e Number [facility] - [address] [place], [place] [address] [facility] [place], [place] [phone] [place] [address] Glucose, Random (06/13/2020 8:41 AM HAND STEMMER) athologist Signature Glucose, S 81 70 - 140 06/13/2020 DTL mg/dL 9:44 AM HAND STEMMER Specimen Anatomical Collection Method Collection Time Receive d Time (Source) Location / / Volume Laterality Blood (Blood, 06/13/2020 8:41 AM 06/13/20 9:26 Venous) HAND STEMMER AM HAND STEMMER Janusz Govea M.B.B.S. LAB BLOOD TROPONIN Performing Organization Address City/[facility]/ZIP Code Phon e Number [facility] - [address] [address] Laboratories[address] Uric Acid (06/13/2020 8:41 AM HAND STEMMER) athologist Signature Uric Acid, S 5.6 2.7 - 6.1 06/13/2020 DTL mg/dL 9:44 AM HAND STEMMER Specimen Anatomical Collection Method Collection Time Receive d Time (Source) Location / / Volume Laterality Blood (Blood, 06/13/2020 8:41 AM 06/13/20 9:26 Venous) HAND STEMMER AM HAND STEMMER Janusz Govea M.B.B.S. LAB BLOOD ADD-ON Performing Organization Address City/[facility] Phon e Number [facility] - [address] [address] [address] (ABNORMAL) Creatinine with Estimated GFR (06/13/2020 8:41 AM HAND STEMMER) Analysis Performed At Patho logis Time Signature Creatinine 1.09 (H) 0.59 - 06/13/2020 DTL 1.04 mg/dL 9:44 AM HAND STEMMER eGFR-Non 59 (L) >=60 06/13/2020 DTL Black/ mL/min/BSA 9:44 AM HAND STEMMER Cymraes Comment: ----ADDITIONAL INFORMATION---- Estimated GFR calculated using the 2009 CKD_EPI creatinine equation. eGFR-Black/ 67 >=60 mL/min/BSA 2019 9:44 AM HAND STEMMER DTL Comment: ----ADDITIONAL INFORMATION---- Estimated GFR calculated using the 2009 CKD_EPI creatinine equation. Specimen Anatomical Collection Method Collection Time Receive d Time (Source) Location / / Volume Laterality Blood (Blood, 06/13/2020 8:41 AM 06/13/20 9:26 Venous) HAND STEMMER AM HAND STEMMER Janusz Dillon.Cain.B.S. LAB BLOOD ADD-ON Performing Organization Address City/[facility] Phon e Number [facility] - [address] (ABNORMAL) BUN (Blood Urea Nitrogen) (06/13/2020 8:41 AM HAND STEMMER) athologist Signature BUN (Blood Urea 25 (H) 6 - 21 06/13/2020 DTL Nitrogen), S mg/dL 9:44 AM HAND STEMMER Specimen Anatomical Collection Method Collection Time Receive d Time (Source) Location / / Volume Laterality Blood (Blood, 06/13/2020 8:41 AM 06/13/20 9:26 Venous) HAND STEMMER AM HAND STEMMER Janusz Dillon.B.B.S. LAB BLOOD ADD-ON Performing Organization Address City/[facility] Code Phon e Number [facility] - [address] Bilirubin, Total (06/13/2020 8:41 AM HAND STEMMER) athologist Signature Bilirubin, 0.5 <=1.2 mg/dL 06/13/2020 DT Total, S 9:44 AM HAND STEMMER Specimen Anatomical Collection Method Collection Time Receive d Time (Source) Location / / Volume Laterality Blood (Blood, 06/13/2020 8:41 AM 06/13/20 9:26 Venous) HAND STEMMER AM HAND STEMMER Janusz Dillon.B.B.S. LAB BLOOD ADD-ON Performing Organization Address City/State/ZIP [facility] Phon e Number [facility] - [address] Calcium, Total (06/13/2020 8:41 AM HAND STEMMER) athologist Signature Calcium, Total, 8.8 8.6 - 10.0 06/13/2020 DTL S mg/dL 9:44 AM HAND STEMMER Specimen Anatomical Collection Method Collection Time Receive d Time (Source) Location / / Volume Laterality Blood (Blood, 06/13/2020 8:41 AM 06/13/20 9:26 Venous) HAND STEMMER AM HAND STEMMER Naseema Gangat M.B.B.S. LAB BLOOD ADD-ON Performing Organization Address City/State/ZIP Code Phon e Number [facility] - [address] [place], [place] [address] [facility] [address] [facility] [address] (ABNORMAL) Chloride (06/13/2020 8:41 AM HAND STEMMER) P athologist Signature Chloride, S 108 (H) 98 - 107 06/13/2020 DTL mmol/L 9:44 AM HAND STEMMER Specimen Anatomical Collection Method Collection Time Receive d Time (Source) Location / / Volume Laterality Blood (Blood, 06/13/2020 8:41 AM 06/13/20 9:26 Venous) HAND STEMMER AM HAND STEMMER Naseema Gangat M.B.B.S. LAB BLOOD ADD-ON Performing Organization Address City/State/ZIP Code Phon e Number [facility] - [address] [place], [place] [address] [facility] [address] [facility] [address] Magnesium (06/13/2020 8:41 AM HAND STEMMER) P athologist Signature Magnesium, S 2.1 1.7 - 2.3 06/13/2020 DTL mg/dL 9:44 AM HAND STEMMER Specimen Anatomical Collection Method Collection Time Receive d Time (Source) Location / / Volume Laterality Blood (Blood, 06/13/2020 8:41 AM 06/13/20 9:26 Venous) HAND STEMMER AM HAND STEMMER Naseema Gangat M.B.B.S. LAB BLOOD ADD-ON Performing Organization Address City/State/ZIP Code Phon e Number [facility] - [address] [place], [place] [address] [facility] [address] [facility] [address] Potassium (06/13/2020 8:41 AM HAND STEMMER) P athologist Signature Potassium, S 5.1 3.6 - 5.2 06/13/2020 DTL mmol/L 9:44 AM HAND STEMMER Specimen Anatomical Collection Method Collection Time Receive d Time (Source) Location / / Volume Laterality Blood (Blood, 06/13/2020 8:41 AM 06/13/20 9:26 Venous) HAND STEMMER AM HAND STEMMER Janusz Mcdonaldgat M.B.B.S. LAB BLOOD ADD-ON Performing Organization Address City/State/ZIP [facility] [place] Phon e Number [facility] - [address] [facility] Sodium (06/13/2020 8:41 AM HAND STEMMER) P athologist Signature Sodium, S 142 135 - 145 06/13/2020 9:44 DTL mmol/L AM HAND STEMMER Specimen Anatomical Collection Method Collection Time Receive d Time (Source) Location / / Volume Laterality Blood (Blood, 06/13/2020 8:41 AM 06/13/20 9:26 Venous) HAND STEMMER AM HAND STEMMER Nasjonathan Govea M.B.B.S. LAB BLOOD ADD-ON Performing Organization Address City/State/[facility] Phon e Number [facility] - [address] (ABNORMAL) Alkaline Phosphatase (06/13/2020 8:41 AM HAND STEMMER) P athologist Signature Alkaline 33 (L) 35 - 104 06/13/2020 DTL Phosphatase, S U/L 9:44 AM HAND STEMMER Specimen Anatomical Collection Method Collection Time Receive d Time (Source) Location / / Volume Laterality Blood (Blood, 06/13/2020 8:41 AM 06/13/20 9:26 Venous) HAND STEMMER AM HAND STEMMER Nasjonathan Mcdonaldgat M.B.B.S. LAB BLOOD ADD-ON Performing Organization Address City/State/[facility] Phon e Number [facility] - [address] AST (Aspartate Aminotransferase) (06/13/2020 8:41 AM HAND STEMMER) Patholo gist Method Time Signature Aspartate 25 8 - 43 06/13/2020 DTL Aminotransferase U/L 9:44 AM HAND STEMMER (AST), S Specimen Anatomical Collection Method Collection Time Receive d Time (Source) Location / / Volume Laterality Blood (Blood, 06/13/2020 8:41 AM 06/13/20 20 9:26 Venous) HAND STEMMER AM HAND STEMMER Janusz Govea M.B.B.S. LAB BLOOD ADD-ON Performing Organization Address City/[facility] Phon e Number [facility] - [address] ALT (Alanine Aminotransferase) (06/13/2020 8:41 AM HAND STEMMER) [facility] Method Time Signature Alanine 14 7 - 45 06/13/2020 DTL Aminotransferase U/L 9:44 AM HAND STEMMER (ALT), S Specimen Anatomical Collection Method Collection Time Receive d Time (Source) Location / / Volume Laterality Blood (Blood, 06/13/2020 8:41 AM 06/13/20 9:26 Venous) HAND STEMMER AM HAND STEMMER Janusz Dillon.B.B.S. LAB BLOOD ADD-ON Performing Organization Address City/[facility] Phon e Number [facility] - [address] (ABNORMAL) CBC with Differential, Blood (06/13/2020 8:41 AM HAND STEMMER) [facility] Method Time Signature Hemoglobin 6.5 (L) 11.6 - 06/13/2020 DTL 15.0 g/dL 9:27 AM HAND STEMMER Hematocrit 22.7 (L) 35.5 - 06/13/2020 DTL 44.9 % 9:27 AM HAND STEMMER Erythrocytes 2.40 (L) 3.92 - 06/13/2020 DTL 5.13 9:27 AM HAND STEMMER x10(12)/L MCV 94.6 78.2 - 06/13/2020 DTL 97.9 fL 9:27 AM HAND STEMMER RBC Distrib Width 27.3 (H) 12.2 - 06/13/2020 DTL 16.1 % 9:27 AM HAND STEMMER Platelet Count 106 (L) 157 - 371 06/13/2020 DTL x10(9)/L 10:23 AM HAND STEMMER Leukocytes 2.9 (L) 3.4 - 9.6 06/13/2020 DTL x10(9)/L 10:23 AM HAND STEMMER Comment: Results confirmed by smear. Neutrophils SeeComment 1.56 - 6.45 x10(9)/L 06/13/2020 10:23 AM HAND STEMMER DTL Comment: Auto-diff results not valid. Se e manual differential. Specimen Anatomical Collection Method Collection Time Receive d Time (Source) Location / / Volume Laterality Blood (Blood, 06/13/2020 8:41 AM 06/13/20 20 9:16 Venous) HAND STEMMER AM HAND STEMMER Janusz Ardon LAB BLOOD ADD-ON Performing Organization Address City/State/ZIP Code Phon e Number [facility] - [address] [place], [place] [address] [facility] [address] [facility] [address] documented in this encounter Visit Diagnoses Diagnosis Myelofibrosis (HCC) documented in this encounter
--- OUTSIDE RECORDS SUMMARY | 2022-05-02 12:37 | XMS_ITS | Encounter Summary ---
:1970 Author Organization [facility] Address [address] [place] [id number] Care Team Providers Name Role Phone Unavailable Primary Care Provider Unavailable Reason for Referral Outpatient (Routine) - Closed Specialty Diagnoses / Procedures Referred By Contact Refer red To Contact Hematology Oncology Diagnoses [facility] [address] [place] [phone] Referral ID Status Reason Start Date Expiration Date Visits Requ ested Visits Authorized [id number] Closed 06/16/2020 06/16/2021 1 1 Scheduling Instructions Please schedule with Dr. Govea at 1030a m (Dr. Govea approved override) GER GENERATION Outpatient (Routine) - Closed Specialty Diagnoses / Procedures Referred By Contact Refer red To Contact Hematology Oncology Diagnoses Myelofibrosis (HCC) [facility] [address] [place] [phone] Referral ID Status Reason Start Date Expiration Date Visits Requ ested Visits Authorized [id number] Closed 06/16/2020 06/16/2021 1 1 Scheduling Instructions Please schedule with Dr. Govea at 8am ( calendar override approved by Dr. Govea) GER GENERATION Encounter Details Date Type Department Care Team Description 06/16/2020 Orders Only Division of [place], Myelofibrosis ( HCC) Hematology in [place] (Primary Dx) [place], [place] [address] [facility] [address] [place] [phone] Social History Tobacco Use Types Packs/Day Years Used Date Smoking Tobacco: Former Smokeless Tobacco: Never Sex Assigned at Date Recorded Female 07/24/2021 11:03 AM MANAGER GENERATION documented as of this encounter Plan of Treatment Scheduled Referrals Name Type Priority Associated Diagnoses [facility] Outpatient Referral Routine Myelofibrosis (H CC) Expected: visit (clinic) 07/03/2020, Expires: 07/03/2023 Hematology office Outpatient Referral Routine Myelofibrosis (H CC) Expected: visit (clinic) 07/31/2020, Expires: 07/31/2023 documented as of this encounter Results (ABNORMAL) Protein, Total (08/01/2020 8:46 AM MANAGER GENERATION) P athologist Signature Protein, 5.8 (L) 6.3 - 7.9 08/01/2020 DTL Total, S g/dL 9:59 AM MANAGER GENERATION Specimen Anatomical Collection Method Collection Time Receive d Time (Source) Location / / Volume Laterality Blood (Blood, 08/01/2020 8:46 AM 08/01/19 9:11 Venous) MANAGER GENERATION AM MANAGER GENERATION Janusz Ardon LAB BLOOD ADD-ON Performing Organization Address City/State/ZIP Code Phon e Number [facility] - [address] [place], [place] [address] [facility] [place] [address] [facility] [address] [facility] Albumin (08/01/2020 8:46 AM MANAGER GENERATION) P athologist Signature Albumin, S 4.3 3.5 - 5.0 08/01/2020 DTL g/dL 9:59 AM MANAGER GENERATION Specimen Anatomical Collection Method Collection Time Receive d Time (Source) Location / / Volume Laterality Blood (Blood, 08/01/2020 8:46 AM 08/01/19 9:11 Venous) MANAGER GENERATION AM MANAGER GENERATION Janusz Dillon.Cain.B.S. LAB BLOOD ADD-ON Performing Organization Address City/[facility]/ZIP [facility] Phon e Number [facility] - [address] Glucose, Random (08/01/2020 8:46 AM MANAGER GENERATION) P athologist Signature Glucose, S 126 70 - 140 08/01/2020 DTL mg/dL 9:59 AM MANAGER GENERATION Specimen Anatomical Collection Method Collection Time Receive d Time (Source) Location / / Volume Laterality Blood (Blood, 08/01/2020 8:46 AM 08/01/19 9:11 Venous) MANAGER GENERATION AM MANAGER GENERATION aJnusz Dillon.B.B.S. LAB BLOOD TROPONIN Performing Organization Address City/[facility]/ZIP [facility] Phon e Number [facility] - [address] Uric Acid (08/01/2020 8:46 AM MANAGER GENERATION) P athologist Signature Uric Acid, S 3.9 2.7 - 6.1 08/01/2020 DTL mg/dL 9:59 AM MANAGER GENERATION Specimen Anatomical Collection Method Collection Time Receive d Time (Source) Location / / Volume Laterality Blood (Blood, 08/01/2020 8:46 AM 08/01/19 9:11 Venous) MANAGER GENERATION AM MANAGER GENERATION Janusz Dillon.B.B.S. LAB BLOOD ADD-ON Performing Organization Address City/State/ZIP Code Phon e Number [facility] - 200 [place], [place] [address] (ABNORMAL) Creatinine with Estimated GFR (08/01/2020 8:46 AM MANAGER GENERATION) Analysis Performed At Patho logist Time Signature Creatinine 1.06 (H) 0.59 - 08/01/2020 DTL 1.04 mg/dL 9:59 AM MANAGER GENERATION eGFR-Non 61 >=60 08/01/2020 DTL Black/ mL/min/BSA 9:59 AM MANAGER GENERATION Spanish Comment: ----ADDITIONAL INFORMATION---- Estimated GFR calculated using the 2009 CKD_EPI creatinine equation. eGFR-Black/ 70 >=60 mL/min/BSA 2020 9:59 AM MANAGER GENERATION DTL Comment: ----ADDITIONAL INFORMATION---- Estimated GFR calculated using the 2009 CKD_EPI creatinine equation. Specimen Anatomical Collection Method Collection Time Receive d Time (Source) Location / / Volume Laterality Blood (Blood, 08/01/2020 8:46 AM 08/01/19 9:11 Venous) MANAGER GENERATION AM MANAGER GENERATION Janusz Higgins.B.S. LAB BLOOD ADD-ON Performing Organization Address City/State/ZIP Code Phon e Number [facility] - [address] [place], [place] [address] [place] [phone] [place] [address] BUN (Blood Urea Nitrogen) (08/01/2020 8:46 AM MANAGER GENERATION) P athologist Signature BUN (Blood Urea 19 6 - 21 08/01/2020 DTL Nitrogen), S mg/dL 9:59 AM MANAGER GENERATION Specimen Anatomical Collection Method Collection Time Receive d Time (Source) Location / / Volume Laterality Blood (Blood, 08/01/2020 8:46 AM 08/01/19 9:11 Venous) MANAGER GENERATION AM MANAGER GENERATION Janusz Dillon.Cain.B.S. LAB BLOOD ADD-ON Performing Organization Address City/State/ZIP Code Phon e Number [facility] - [address] [place] [address] [place] [address] Bilirubin, Total (08/01/2020 8:46 AM MANAGER GENERATION) P athologist Signature Bilirubin, 1.0 <=1.2 mg/dL 08/01/2020 DTL Total, S 9:59 AM MANAGER GENERATION Specimen Anatomical Collection Method Collection Time Receive d Time (Source) Location / / Volume Laterality Blood (Blood, 08/01/2020 8:46 AM 08/01/19 9:11 Venous) MANAGER GENERATION AM MANAGER GENERATION Janusz Dillon.B.B.S. LAB BLOOD ADD-ON Performing Organization Address City/State/ZIP Code Phon e Number [facility] - 200 [place], [place] [address] [place] [address] Calcium, Total (08/01/2020 8:46 AM MANAGER GENERATION) P athologist Signature Calcium, Total, 8.8 8.6 - 10.0 08/01/2020 DTL S mg/dL 9:59 AM MANAGER GENERATION Specimen Anatomical Collection Method Collection Time Receive d Time (Source) Location / / Volume Laterality Blood (Blood, 08/01/2020 8:46 AM 08/01/19 9:11 Venous) MANAGER GENERATION AM MANAGER GENERATION Janusz Holt.S. LAB BLOOD ADD-ON Performing Organization Address City/[facility] Phon e Number [facility] - [phone] [place] [address] Chloride (08/01/2020 8:46 AM MANAGER GENERATION) P athologist Signature Chloride, S 105 98 - 107 08/01/2020 DTL mmol/L 9:59 AM MANAGER GENERATION Specimen Anatomical Collection Method Collection Time Receive d Time (Source) Location / / Volume Laterality Blood (Blood, 08/01/2020 8:46 AM 08/01/19 9:11 Venous) MANAGER GENERATION AM MANAGER GENERATION Janusz Holt.S. LAB BLOOD ADD-ON Performing Organization Address City/[facility] Phon e Number [facility] - 200 [place] [address] 05 [place], [place] [phone] [place] [address] Magnesium (08/01/2020 8:46 AM MANAGER GENERATION) P athologist Signature Magnesium, S 2.2 1.7 - 2.3 08/01/2020 DTL mg/dL 9:59 AM MANAGER GENERATION Specimen Anatomical Collection Method Collection Time Receive d Time (Source) Location / / Volume Laterality Blood (Blood, 08/01/2020 8:46 AM 08/01/19 9:11 Venous) MANAGER GENERATION AM MANAGER GENERATION Naseema Gangat M.B.B.S. LAB BLOOD ADD-ON Performing Organization Address City/[facility]/ZIP [facility] Phon e Number [facility] - [address] 200 [facility] Potassium (08/01/2020 8:46 AM MANAGER GENERATION) athologist Signature Potassium, S 4.4 3.6 - 5.2 08/01/2020 DTL mmol/L 9:59 AM MANAGER GENERATION Specimen Anatomical Collection Method Collection Time Receive d Time (Source) Location / / Volume Laterality Blood (Blood, 08/01/2020 8:46 AM 08/01/19 9:11 Venous) MANAGER GENERATION AM MANAGER GENERATION Janusz Dillon.Cain.B.S. LAB BLOOD ADD-ON Performing Organization Address City/[facility] Phon e Number [facility] - [phone] [place] [address] Sodium (08/01/2020 8:46 AM MANAGER GENERATION) athologist Signature Sodium, S 143 135 - 145 08/01/2020 9:59 DTL mmol/L AM MANAGER GENERATION Specimen Anatomical Collection Method Collection Time Receive d Time (Source) Location / / Volume Laterality Blood (Blood, 08/01/2020 8:46 AM 08/01/19 9:11 Venous) MANAGER GENERATION AM MANAGER GENERATION Janusz Higgins.B.S. LAB BLOOD ADD-ON Performing Organization Address City/[facility] Phon e Number [facility] - [address] Alkaline Phosphatase (08/01/2020 8:46 AM MANAGER GENERATION) athologist Signature Alkaline 38 35 - 104 08/01/2020 DTL Phosphatase, S U/L 9:59 AM MANAGER GENERATION Specimen Anatomical Collection Method Collection Time Receive d Time (Source) Location / / Volume Laterality Blood (Blood, 08/01/2020 8:46 AM 08/01/19 9:11 Venous) MANAGER GENERATION AM MANAGER GENERATION Nasjonathan Govea M.B.B.S. LAB BLOOD ADD-ON Performing Organization Address City/[facility]/ZIP Code Phon e Number [facility] - 200 [place], [place] [address] [facility] [address] AST (Aspartate Aminotransferase) (08/01/2020 8:46 AM MANAGER GENERATION) [facility] Method Time Signature Aspartate 33 8 - 43 08/01/2020 DTL Aminotransferase U/L 9:59 AM MANAGER GENERATION (AST), S Specimen Anatomical Collection Method Collection Time Receive d Time (Source) Location / / Volume Laterality Blood (Blood, 08/01/2020 8:46 AM 08/01/19 9:11 Venous) MANAGER GENERATION AM MANAGER GENERATION Nasjonathan Mcdonaldgat M.B.B.S. LAB BLOOD ADD-ON Performing Organization Address [facility] Phon e Number [facility] - [address] [place] [address] [facility] [place] [address] ALT (Alanine Aminotransferase) (08/01/2020 8:46 AM MANAGER GENERATION) [facility] Method Time Signature Alanine 12 7 - 45 08/01/2020 DTL Aminotransferase U/L 9:59 AM MANAGER GENERATION (ALT), S Specimen Anatomical Collection Method Collection Time Receive d Time (Source) Location / / Volume Laterality Blood (Blood, 08/01/2020 8:46 AM 08/01/19 9:11 Venous) MANAGER GENERATION AM MANAGER GENERATION Nasjonathan Govea M.B.B.S. LAB BLOOD ADD-ON Performing Organization Address City/[facility]/ZIP [facility] Phon e Number [facility] - 200 [place], [place] [address] (ABNORMAL) CBC with Differential, Blood (08/01/2020 8:46 AM MANAGER GENERATION) [facility] Method Time Signature Hemoglobin 6.6 (L) 11.6 - 08/01/2020 DTL 15.0 g/dL 9:31 AM MANAGER GENERATION Hematocrit 22.2 (L) 35.5 - 08/01/2020 DTL 44.9 % 9:31 AM MANAGER GENERATION Erythrocytes 2.44 (L) 3.92 - 08/01/2020 DTL 5.13 9:31 AM MANAGER GENERATION x10(12)/L MCV 91.0 78.2 - 08/01/2020 DTL 97.9 fL 9:31 AM MANAGER GENERATION RBC Distrib Width 25.0 (H) 12.2 - 08/01/2020 DTL 16.1 % 9:31 AM MANAGER GENERATION Platelet Count 74 (L) 157 - 371 08/01/2020 DTL x10(9)/L 10:46 AM MANAGER GENERATION Comment: Results confirmed by smear, no clumping or interference seen. Leukocytes 2.8 (L) 3.4 - 9.6 x10(9)/L 08/01/2020 10:46 AM MANAGER GENERATION DTL Comment: Results confirmed by smear. Neutrophils SeeComment 1.56 - 6.45 x10(9)/L 08/01/2020 10:46 AM MANAGER GENERATION DTL Comment: Auto-diff results not valid. Se e manual differential. Specimen Anatomical Collection Method Collection Time Receive d Time (Source) Location / / Volume Laterality Blood (Blood, 08/01/2020 8:46 AM 08/01/19 9:15 Venous) MANAGER GENERATION AM MANAGER GENERATION Janusz AlexandraS. LAB BLOOD ADD-ON Performing Organization Address City/State/ZIP Code Phon e Number [facility] - [address] [place], [place] [address] [facility] [place] [address] [facility] [address] (ABNORMAL) Protein, Total (07/24/2020 8:50 AM MANAGER GENERATION) P athologist Signature Protein, 5.9 (L) 6.3 - 7.9 07/24/2020 DTL Total, S g/dL 9:46 AM MANAGER GENERATION Specimen Anatomical Collection Method Collection Time Receive d Time (Source) Location / / Volume Laterality Blood (Blood, 07/24/2020 8:50 AM 07/24/19 9:14 Venous) MANAGER GENERATION AM MANAGER GENERATION Januzs ArringtonB.S. LAB BLOOD ADD-ON Performing Organization Address City/State/ZIP Code Phon e Number [facility] - 200 [place], [place] [address] [place] [address] [facility] 200 [facility] Albumin (07/24/2020 8:50 AM MANAGER GENERATION) P athologist Signature Albumin, S 4.2 3.5 - 5.0 07/24/2020 DTL g/dL 9:46 AM MANAGER GENERATION Specimen Anatomical Collection Method Collection Time Receive d Time (Source) Location / / Volume Laterality Blood (Blood, 07/24/2020 8:50 AM 07/24/19 9:14 Venous) MANAGER GENERATION AM MANAGER GENERATION Naseema Gangat M.B.B.S. LAB BLOOD ADD-ON Performing Organization Address City/State/ZIP Code Phon e Number [facility] - 200 [place], [place] [address] [place] [address] Glucose, Random (07/24/2020 8:50 AM MANAGER GENERATION) athologist Signature Glucose, S 131 70 - 140 07/24/2020 DTL mg/dL 9:46 AM MANAGER GENERATION Specimen Anatomical Collection Method Collection Time Receive d Time (Source) Location / / Volume Laterality Blood (Blood, 07/24/2020 8:50 AM 07/24/19 9:14 Venous) MANAGER GENERATION AM MANAGER GENERATION Naseema Gangat M.B.B.S. LAB BLOOD TROPONIN Performing Organization Address City/State/ZIP Code Phon e Number [facility] - 200 [place], [place] [address] [place] [address] Uric Acid (07/24/2020 8:50 AM MANAGER GENERATION) P athologist Signature Uric Acid, S 5.5 2.7 - 6.1 07/24/2020 DTL mg/dL 9:46 AM MANAGER GENERATION Specimen Anatomical Collection Method Collection Time Receive d Time (Source) Location / / Volume Laterality Blood (Blood, 07/24/2020 8:50 AM 07/24/19 9:14 Venous) MANAGER GENERATION AM MANAGER GENERATION Naseema Gangat M.B.B.S. LAB BLOOD ADD-ON Performing Organization Address City/State/ZIP Code Phon e Number [facility] - [address] [place], [place] [address] [place] [address] [place], [place] [phone] [place] [address] Creatinine with Estimated GFR (07/24/2020 8:50 AM MANAGER GENERATION) athologist Signature Creatinine 0.95 0.59 - 07/24/2020 DTL 1.04 mg/dL 9:46 AM MANAGER GENERATION eGFR-Non 69 >=60 07/24/2020 DTL Black/ mL/min/BSA 9:46 AM MANAGER GENERATION Spanish Comment: ----ADDITIONAL INFORMATION---- Estimated GFR calculated using the 2009 CKD_EPI creatinine equation. eGFR-Black/ 80 >=60 mL/min/BSA 2020 9:46 AM MANAGER GENERATION DTL Comment: ----ADDITIONAL INFORMATION---- Estimated GFR calculated using the 2009 CKD_EPI creatinine equation. Specimen Anatomical Collection Method Collection Time Receive d Time (Source) Location / / Volume Laterality Blood (Blood, 07/24/2020 8:50 AM 07/24/19 9:14 Venous) MANAGER GENERATION AM MANAGER GENERATION Janusz ArringtonB.S. LAB BLOOD ADD-ON Performing Organization Address City/State/[facility] Code Phon e Number [facility] - [address] [place], [place] [address] [place] [phone] [facility] [address] BUN (Blood Urea Nitrogen) (07/24/2020 8:50 AM MANAGER GENERATION) athologist Signature BUN (Blood Urea 15 6 - 21 07/24/2020 DTL Nitrogen), S mg/dL 9:46 AM MANAGER GENERATION Specimen Anatomical Collection Method Collection Time Receive d Time (Source) Location / / Volume Laterality Blood (Blood, 07/24/2020 8:50 AM 07/24/19 9:14 Venous) MANAGER GENERATION AM MANAGER GENERATION Janusz ArringtonB.S. LAB BLOOD ADD-ON Performing Organization Address City/State/ZIP Code Phon e Number [facility] - [address] [place], [place] [address] [place] [address] [facility] [address] Bilirubin, Total (07/24/2020 8:50 AM MANAGER GENERATION) P athologist Signature Bilirubin, 0.7 <=1.2 mg/dL 07/24/2020 DTL Total, S 9:46 AM MANAGER GENERATION Specimen Anatomical Collection Method Collection Time Receive d Time (Source) Location / / Volume Laterality Blood (Blood, 07/24/2020 8:50 AM 07/24/19 9:14 Venous) MANAGER GENERATION AM MANAGER GENERATION Janusz Dillon.B.B.S. LAB BLOOD ADD-ON Performing Organization Address City/State/ZIP Code Phon e Number [facility] - [phone] [place] [address] [address] [facility] (ABNORMAL) Calcium, Total (07/24/2020 8:50 AM MANAGER GENERATION) athologist Signature Calcium, 8.5 (L) 8.6 - 10.0 07/24/2020 DTL Total, S mg/dL 9:58 AM MANAGER GENERATION Specimen Anatomical Collection Method Collection Time Receive d Time (Source) Location / / Volume Laterality Blood (Blood, 07/24/2020 8:50 AM 07/24/19 9:14 Venous) MANAGER GENERATION AM MANAGER GENERATION Janusz Dillon.B.B.S. LAB BLOOD ADD-ON Performing Organization Address City/[facility]/ZIP Code Phon e Number [facility] - [phone] [place] [address] 200 [address] [facility] (ABNORMAL) Chloride (07/24/2020 8:50 AM MANAGER GENERATION) P athologist Signature Chloride, S 108 (H) 98 - 107 07/24/2020 DTL mmol/L 9:46 AM MANAGER GENERATION Specimen Anatomical Collection Method Collection Time Receive d Time (Source) Location / / Volume Laterality Blood (Blood, 07/24/2020 8:50 AM 07/24/19 21 9:14 Venous) MANAGER GENERATION AM MANAGER GENERATION Janusz Dillon.B.B.S. LAB BLOOD ADD-ON Performing Organization Address City/State/ZIP Code Phon e Number [facility] - 200 [place], [place] [address] [place] [address] [facility] [address] [facility] Magnesium (07/24/2020 8:50 AM MANAGER GENERATION) athologist Signature Magnesium, S 2.1 1.7 - 2.3 07/24/2020 DTL mg/dL 9:46 AM MANAGER GENERATION Specimen Anatomical Collection Method Collection Time Receive d Time (Source) Location / / Volume Laterality Blood (Blood, 07/24/2020 8:50 AM 07/24/19 9:14 Venous) MANAGER GENERATION AM MANAGER GENERATION Naseema Gangat M.B.B.S. LAB BLOOD ADD-ON Performing Organization Address City/State/ZIP Code Phon e Number [facility] - 200 [place], [place] [address] [place] [phone] [place] [address] [address] [facility] Potassium (07/24/2020 8:50 AM MANAGER GENERATION) athologist Signature Potassium, S 4.2 3.6 - 5.2 07/24/2020 DTL mmol/L 9:46 AM MANAGER GENERATION Specimen Anatomical Collection Method Collection Time Receive d Time (Source) Location / / Volume Laterality Blood (Blood, 07/24/2020 8:50 AM 07/24/19 9:14 Venous) MANAGER GENERATION AM MANAGER GENERATION Naseema Gangat M.B.B.S. LAB BLOOD ADD-ON Performing Organization Address City/State/ZIP Code Phon e Number [facility] - 200 [place], [place] [address] [place] [address] Sodium (07/24/2020 8:50 AM MANAGER GENERATION) athologist Signature Sodium, S 143 135 - 145 07/24/2020 9:46 DTL mmol/L AM MANAGER GENERATION Specimen Anatomical Collection Method Collection Time Receive d Time (Source) Location / / Volume Laterality Blood (Blood, 07/24/2020 8:50 AM 07/24/19 9:14 Venous) MANAGER GENERATION AM MANAGER GENERATION Naseema Gangat M.B.B.S. LAB BLOOD ADD-ON Performing Organization Address City/[facility] Phon e Number [facility] - [address] Alkaline Phosphatase (07/24/2020 8:50 AM MANAGER GENERATION) P athologist Signature Alkaline 36 35 - 104 07/24/2020 DTL Phosphatase, S U/L 9:46 AM MANAGER GENERATION Specimen Anatomical Collection Method Collection Time Receive d Time (Source) Location / / Volume Laterality Blood (Blood, 07/24/2020 8:50 AM 07/24/19 21 9:14 Venous) MANAGER GENERATION AM MANAGER GENERATION Janusz AlexandraSZahraa LAB BLOOD ADD-ON Performing Organization Address City/[facility] Code Phon e Number [facility] - 200 [place], [place] [address] [place] [address] [facility] AST (Aspartate Aminotransferase) (07/24/2020 8:50 AM MANAGER GENERATION) Patholo gist Method Time Signature Aspartate 27 8 - 43 07/24/2020 DTL Aminotransferase U/L 9:46 AM MANAGER GENERATION (AST), S Specimen Anatomical Collection Method Collection Time Receive d Time (Source) Location / / Volume Laterality Blood (Blood, 07/24/2020 8:50 AM 07/24/19 21 9:14 Venous) MANAGER GENERATION AM MANAGER GENERATION Janusz AlexandraSZahraa LAB BLOOD ADD-ON Performing Organization Address City/[facility] Phon e Number [facility] - 200 [place] [address] [facility] ALT (Alanine Aminotransferase) (07/24/2020 8:50 AM MANAGER GENERATION) Patholo gist Method Time Signature Alanine 9 7 - 45 07/24/2020 DTL Aminotransferase U/L 9:46 AM MANAGER GENERATION (ALT), S Specimen Anatomical Collection Method Collection Time Receive d Time (Source) Location / / Volume Laterality Blood (Blood, 07/24/2020 8:50 AM 07/24/19 21 9:14 Venous) MANAGER GENERATION AM MANAGER GENERATION Janusz AlexandraSZahraa LAB BLOOD ADD-ON Performing Organization Address City/State/[facility] Code Phon e Number [facility] - [address] (ABNORMAL) CBC with Differential, Blood (07/24/2020 8:50 AM MANAGER GENERATION) [facility] Method Time Signature Hemoglobin 5.9 (CL) 11.6 - 07/24/2020 DTL 15.0 g/dL 9:58 AM MANAGER GENERATION Hematocrit 18.9 (L) 35.5 - 07/24/2020 DTL 44.9 % 9:58 AM MANAGER GENERATION Erythrocytes 2.10 (L) 3.92 - 07/24/2020 DTL 5.13 9:58 AM MANAGER GENERATION x10(12)/L MCV 90.0 78.2 - 07/24/2020 DTL 97.9 fL 9:58 AM MANAGER GENERATION RBC Distrib Width 24.4 (H) 12.2 - 07/24/2020 DTL 16.1 % 9:58 AM MANAGER GENERATION Platelet Count 70 (L) 157 - 371 07/24/2020 DTL x10(9)/L 9:58 AM MANAGER GENERATION Leukocytes 2.4 (L) 3.4 - 9.6 07/24/2020 DTL x10(9)/L 10:33 AM MANAGER GENERATION Comment: Results confirmed by smear. Neutrophils SeeComment 1.56 - 6.45 x10(9)/L 07/24/2020 10:33 AM MANAGER GENERATION DTL Comment: Auto-diff results not valid. Se e manual differential. Specimen Anatomical Collection Method Collection Time Receive d Time (Source) Location / / Volume Laterality Blood (Blood, 07/24/2020 8:50 AM 07/24/19 21 9:22 Venous) MANAGER GENERATION AM MANAGER GENERATION Janusz AlexandraSZahraa LAB BLOOD ADD-ON Performing Organization Address City/State/[facility] Code Phon e Number [facility] - [address] Protein, Total (07/17/2020 9:41 AM MANAGER GENERATION) athologist Signature Protein, Total, 6.4 6.3 - 7.9 07/17/2020 DTL S g/dL 11:15 AM MANAGER GENERATION Specimen Anatomical Collection Method Collection Time Receive d Time (Source) Location / / Volume Laterality Blood (Blood, 07/17/2020 9:41 AM 07/17/19 Venous) MANAGER GENERATION 10:05 AM MANAGER GENERATION Janusz Govea M.B.B.S. LAB BLOOD ADD-ON Performing Organization Address City/State/ZIP Code Phon e Number [facility] - [address] [place], [place] [address] [place] [address] [facility] [address] Albumin (07/17/2020 9:41 AM MANAGER GENERATION) athologist Signature Albumin, S 4.5 3.5 - 5.0 07/17/2020 DTL g/dL 11:15 AM MANAGER GENERATION Specimen Anatomical Collection Method Collection Time Receive d Time (Source) Location / / Volume Laterality Blood (Blood, 07/17/2020 9:41 AM 07/17/19 Venous) MANAGER GENERATION 10:05 AM MANAGER GENERATION Janusz Dillon.B.B.S. LAB BLOOD ADD-ON Performing Organization Address City/State/ZIP Code Phon e Number [facility] - [address] [place], [place] [address] [place] [address] [facility] [address] Glucose, Random (07/17/2020 9:41 AM MANAGER GENERATION) athologist Signature Glucose, S 137 70 - 140 07/17/2020 DTL mg/dL 11:15 AM MANAGER GENERATION Specimen Anatomical Collection Method Collection Time Receive d Time (Source) Location / / Volume Laterality Blood (Blood, 07/17/2020 9:41 AM 07/17/19 Venous) MANAGER GENERATION 10:05 AM MANAGER GENERATION Janusz oGvea M.B.B.S. LAB BLOOD TROPONIN Performing Organization Address City/State/ZIP Code Phon e Number [facility] - [address] [place], [place] [address] [facility] [place] [address] [facility] [address] (ABNORMAL) Uric Acid (07/17/2020 9:41 AM MANAGER GENERATION) athologist Signature Uric Acid, S 6.6 (H) 2.7 - 6.1 07/17/2020 DTL mg/dL 11:15 AM MANAGER GENERATION Specimen Anatomical Collection Method Collection Time Receive d Time (Source) Location / / Volume Laterality Blood (Blood, 07/17/2020 9:41 AM 07/17/19 Venous) MANAGER GENERATION 10:05 AM MANAGER GENERATION Janusz AlexandraSZahraa LAB BLOOD ADD-ON Performing Organization Address City/State/[facility] Phon e Number [facility] - [address] [place], [place] [address] [facility] [address] (ABNORMAL) Creatinine with Estimated GFR (07/17/2020 9:41 AM MANAGER GENERATION) Analysis Performed At [facility] Signature Creatinine 1.10 (H) 0.59 - 07/17/2020 DTL 1.04 mg/dL 11:15 AM MANAGER GENERATION eGFR-Non 58 (L) >=60 07/17/2020 DTL Black/ mL/min/BSA 11:15 AM MANAGER GENERATION Spanish Comment: ----ADDITIONAL INFORMATION---- Estimated GFR calculated using the 2009 CKD_EPI creatinine equation. eGFR-Black/ 67 >=60 mL/min/BSA 2020 11:15 AM MANAGER GENERATION DTL Comment: ----ADDITIONAL INFORMATION---- Estimated GFR calculated using the 2009 CKD_EPI creatinine equation. Specimen Anatomical Collection Method Collection Time Receive d Time (Source) Location / / Volume Laterality Blood (Blood, 07/17/2020 9:41 AM 07/17/19 Venous) MANAGER GENERATION 10:05 AM MANAGER GENERATION Janusz AlexandraS. LAB BLOOD ADD-ON Performing Organization Address City/State/[facility] Phon e Number [facility] - [address] [place], [place] [address] [facility] [place] [address] [address] (ABNORMAL) BUN (Blood Urea Nitrogen) (07/17/2020 9:41 AM MANAGER GENERATION) athologist Signature BUN (Blood Urea 25 (H) 6 - 21 07/17/2020 DTL Nitrogen), S mg/dL 11:15 AM MANAGER GENERATION Specimen Anatomical Collection Method Collection Time Receive d Time (Source) Location / / Volume Laterality Blood (Blood, 07/17/2020 9:41 AM 07/17/19 Venous) MANAGER GENERATION 10:05 AM MANAGER GENERATION Nasjonathan Govea M.B.B.S. LAB BLOOD ADD-ON Performing Organization Address City/State/[facility] Code Phon e Number [facility] - [address] [place], [place] [address] [place] [address] Bilirubin, Total (07/17/2020 9:41 AM MANAGER GENERATION) athologist Signature Bilirubin, 0.8 <=1.2 mg/dL 07/17/2020 DTL Total, S 11:15 AM MANAGER GENERATION Specimen Anatomical Collection Method Collection Time Receive d Time (Source) Location / / Volume Laterality Blood (Blood, 07/17/2020 9:41 AM 07/17/19 Venous) MANAGER GENERATION 10:05 AM MANAGER GENERATION Nasjonathan Mcdonaldgat M.B.B.S. LAB BLOOD ADD-ON Performing Organization Address City/State/ZIP Code Phon e Number [facility] - [address] [place], [place] [address] [place] [id number] [place] [address] Calcium, Total (07/17/2020 9:41 AM MANAGER GENERATION) athologist Signature Calcium, Total, 8.7 8.6 - 10.0 07/17/2020 DTL S mg/dL 11:15 AM MANAGER GENERATION Specimen Anatomical Collection Method Collection Time Receive d Time (Source) Location / / Volume Laterality Blood (Blood, 07/17/2020 9:41 AM 07/17/19 Venous) MANAGER GENERATION 10:05 AM MANAGER GENERATION Janusz Mcdonaldgat M.B.B.S. LAB BLOOD ADD-ON Performing Organization Address City/State/ZIP Code Phon e Number [facility] - [address] [place], [place] [address] [place] [address] [place], [place] [id number] [place] [address] Street Chloride (07/17/2020 9:41 AM MANAGER GENERATION) athologist Signature Chloride, S 104 98 - 107 07/17/2020 DTL mmol/L 11:15 AM MANAGER GENERATION Specimen Anatomical Collection Method Collection Time Receive d Time (Source) Location / / Volume Laterality Blood (Blood, 07/17/2020 9:41 AM 07/17/19 Venous) MANAGER GENERATION 10:05 AM MANAGER GENERATION Nasbaltazarma Gangat M.B.B.S. LAB BLOOD ADD-ON Performing Organization Address City/State/ZIP Code Phon e Number [facility] - [id number] [place] [address] Magnesium (07/17/2020 9:41 AM MANAGER GENERATION) athologist Signature Magnesium, S 2.3 1.7 - 2.3 07/17/2020 DTL mg/dL 11:15 AM MANAGER GENERATION Specimen Anatomical Collection Method Collection Time Receive d Time (Source) Location / / Volume Laterality Blood (Blood, 07/17/2020 9:41 AM 07/17/19 Venous) MANAGER GENERATION 10:05 AM MANAGER GENERATION Nasbaltazarma Gangat M.B.B.S. LAB BLOOD ADD-ON Performing Organization Address City/[facility]/ZIP Code Phon e Number [facility] - [address] [address] [facility] [address] Potassium (07/17/2020 9:41 AM MANAGER GENERATION) athologist Signature Potassium, S 4.5 3.6 - 5.2 07/17/2020 DTL mmol/L 11:15 AM MANAGER GENERATION Specimen Anatomical Collection Method Collection Time Receive d Time (Source) Location / / Volume Laterality Blood (Blood, 07/17/2020 9:41 AM 07/17/19 Venous) MANAGER GENERATION 10:05 AM MANAGER GENERATION Naseema Gangat M.B.B.S. LAB BLOOD ADD-ON Performing Organization Address City/State/ZIP Code Phon e Number [facility] - [address] [place], [place] [address] [place] [address] [facility] [address] Sodium (07/17/2020 9:41 AM MANAGER GENERATION) P athologist Signature Sodium, S 142 135 - 145 07/17/2020 DTL mmol/L 11:15 AM MANAGER GENERATION Specimen Anatomical Collection Method Collection Time Receive d Time (Source) Location / / Volume Laterality Blood (Blood, 07/17/2020 9:41 AM 07/17/19 Venous) MANAGER GENERATION 10:05 AM MANAGER GENERATION Janusz Govea M.B.B.S. LAB BLOOD ADD-ON Performing Organization Address City/State/ZIP Code Phon e Number [facility] - [address] [place], [place] [address] [place] [address] [facility] [address] [facility] Alkaline Phosphatase (07/17/2020 9:41 AM MANAGER GENERATION) P athologist Signature Alkaline 43 35 - 104 07/17/2020 DTL Phosphatase, S U/L 11:15 AM MANAGER GENERATION Specimen Anatomical Collection Method Collection Time Receive d Time (Source) Location / / Volume Laterality Blood (Blood, 07/17/2020 9:41 AM 07/17/19 Venous) MANAGER GENERATION 10:05 AM MANAGER GENERATION Janusz Dillon.B.B.S. LAB BLOOD ADD-ON Performing Organization Address City/State/ZIP Code Phon e Number [facility] - [address] [place], [place] [address] [place] [address] [facility] [address] AST (Aspartate Aminotransferase) (07/17/2020 9:41 AM MANAGER GENERATION) Patholo gist Method Time Signature Aspartate 20 8 - 43 07/17/2020 DTL Aminotransferase U/L 11:15 AM MANAGER GENERATION (AST), S Specimen Anatomical Collection Method Collection Time Receive d Time (Source) Location / / Volume Laterality Blood (Blood, 07/17/2020 9:41 AM 07/17/19 Venous) MANAGER GENERATION 10:05 AM MANAGER GENERATION Janusz Govea M.B.B.S. LAB BLOOD ADD-ON Performing Organization Address City/State/ZIP Code Phon e Number [facility] - [address] [facility] [place] [address] [facility] [place] [address] Laboratories-[address] ALT (Alanine Aminotransferase) (07/17/2020 9:41 AM MANAGER GENERATION) Patholo gist Method Time Signature Alanine 8 7 - 45 07/17/2020 DTL Aminotransferase U/L 11:15 AM MANAGER GENERATION (ALT), S Specimen Anatomical Collection Method Collection Time Receive d Time (Source) Location / / Volume Laterality Blood (Blood, 07/17/2020 9:41 AM 07/17/19 21 Venous) MANAGER GENERATION 10:05 AM MANAGER GENERATION Janusz Ardon LAB BLOOD ADD-ON Performing Organization Address City/State/ZIP Code Phon e Number [facility] - [address] [place] [address] [address] (ABNORMAL) CBC with Differential, Blood (07/17/2020 9:41 AM MANAGER GENERATION) P athologist Signature Hemoglobin 5.1 (CL) 11.6 - 15.0 07/17/2020 DTL g/dL 10:58 AM MANAGER GENERATION Comment: Rechecked Hematocrit 16.8 (L) 35.5 - 44.9 % 07/17/2020 10:58 AM MANAGER GENERATION D TL Erythrocytes 1.92 (L) 3.92 - 5.13 x10(12)/L 07/17/2020 10:5 8 AM MANAGER GENERATION DTL MCV 87.5 78.2 - 97.9 fL 07/17/2020 10:58 AM MANAGER GENERATION D TL RBC Distrib Width 26.6 (H) 12.2 - 16.1 % 07/17/2020 10:58 A M MANAGER GENERATION DTL Platelet Count 77 (L) 157 - 371 x10(9)/L 07/17/2020 10:58 AM MANAGER GENERATION DTL Leukocytes 2.6 (L) 3.4 - 9.6 x10(9)/L 07/17/2020 11:39 AM MANAGER GENERATION DTL Comment: Results confirmed by smear. Neutrophils SeeComment 1.56 - 6.45 x10(9)/L 07/17/2020 11:39 AM MANAGER GENERATION DTL Comment: Auto-diff results not valid. Se e manual differential. Specimen Anatomical Collection Method Collection Time Receive d Time (Source) Location / / Volume Laterality Blood (Blood, 07/17/2020 9:41 AM 07/17/19 21 Venous) MANAGER GENERATION 10:06 AM MANAGER GENERATION Janusz Dillon.B.B.S. LAB BLOOD ADD-ON Performing Organization Address City/[facility]/ZIP Code Phon e Number [facility] - [address] [place], [place] [address] [facility] [address] (ABNORMAL) Protein, Total (07/10/2020 6:47 AM MANAGER GENERATION) athologist Signature Protein, 6.2 (L) 6.3 - 7.9 07/10/2020 DTL Total, S g/dL 7:51 AM MANAGER GENERATION Specimen Anatomical Collection Method Collection Time Receive d Time (Source) Location / / Volume Laterality Blood (Blood, 07/10/2020 6:47 AM 07/10/20 7:10 Venous) MANAGER GENERATION AM MANAGER GENERATION Janusz Dillon.B.B.S. LAB BLOOD ADD-ON Performing Organization Address City/[facility]/ZIP Code Phon e Number [facility] - [address] [place], [place] [address] [place] [address] [place] [id number] [place] [address] Albumin (07/10/2020 6:47 AM MANAGER GENERATION) athologist Signature Albumin, S 4.4 3.5 - 5.0 07/10/2020 DTL g/dL 7:51 AM MANAGER GENERATION Specimen Anatomical Collection Method Collection Time Receive d Time (Source) Location / / Volume Laterality Blood (Blood, 07/10/2020 6:47 AM 07/10/20 7:10 Venous) MANAGER GENERATION AM MANAGER GENERATION Janusz Dillon.B.B.S. LAB BLOOD ADD-ON Performing Organization Address City/[facility]/ZIP Code Phon e Number [facility] - [address] [place], [place] [address] [facility] [place], [place] [phone] [place] [address] Glucose, Random (07/10/2020 6:47 AM MANAGER GENERATION) athologist Signature Glucose, S 135 70 - 140 07/10/2020 DTL mg/dL 7:51 AM MANAGER GENERATION Specimen Anatomical Collection Method Collection Time Receive d Time (Source) Location / / Volume Laterality Blood (Blood, 07/10/2020 6:47 AM 07/10/20 20 7:10 Venous) MANAGER GENERATION AM MANAGER GENERATION Janusz Dillon.B.B.S. LAB BLOOD TROPONIN Performing Organization Address City/[facility]/ZIP Code Phon e Number [facility] - [address] [place] [address] [place] [address] Laboratories-[address] Uric Acid (07/10/2020 6:47 AM MANAGER GENERATION) athologist Signature Uric Acid, S 5.0 2.7 - 6.1 07/10/2020 DTL mg/dL 7:51 AM MANAGER GENERATION Specimen Anatomical Collection Method Collection Time Receive d Time (Source) Location / / Volume Laterality Blood (Blood, 07/10/2020 6:47 AM 07/10/20 20 7:10 Venous) MANAGER GENERATION AM MANAGER GENERATION Janusz Dillon.B.B.S. LAB BLOOD ADD-ON Performing Organization Address City/[facility] Phon e Number [facility] - [address] [address] [address] (ABNORMAL) Creatinine with Estimated GFR (07/10/2020 6:47 AM MANAGER GENERATION) [facility] Signature Creatinine 1.08 (H) 0.59 - 07/10/2020 DTL 1.04 mg/dL 7:51 AM MANAGER GENERATION eGFR-Non 59 (L) >=60 07/10/2020 DTL Black/ mL/min/BSA 7:51 AM MANAGER GENERATION Spanish Comment: ----ADDITIONAL INFORMATION---- Estimated GFR calculated using the 2009 CKD_EPI creatinine equation. eGFR-Black/ 68 >=60 mL/min/BSA 2019 7:51 AM MANAGER GENERATION DTL Comment: ----ADDITIONAL INFORMATION---- Estimated GFR calculated using the 2009 CKD_EPI creatinine equation. Specimen Anatomical Collection Method Collection Time Receive d Time (Source) Location / / Volume Laterality Blood (Blood, 07/10/2020 6:47 AM 07/10/20 20 7:10 Venous) MANAGER GENERATION AM MANAGER GENERATION Janusz Higgins.B.S. LAB BLOOD ADD-ON Performing Organization Address City/[facility] Phon e Number [facility] - [address] [place], [place] [address] [place] [address] (ABNORMAL) BUN (Blood Urea Nitrogen) (07/10/2020 6:47 AM MANAGER GENERATION) athologist Signature BUN (Blood Urea 24 (H) 6 - 21 07/10/2020 DTL Nitrogen), S mg/dL 7:51 AM MANAGER GENERATION Specimen Anatomical Collection Method Collection Time Receive d Time (Source) Location / / Volume Laterality Blood (Blood, 07/10/2020 6:47 AM 07/10/20 7:10 Venous) MANAGER GENERATION AM MANAGER GENERATION Janusz Dillon.Cain.B.S. LAB BLOOD ADD-ON Performing Organization Address City/[facility] Code Phon e Number [facility] - [address] Bilirubin, Total (07/10/2020 6:47 AM MANAGER GENERATION) athologist Signature Bilirubin, 0.8 <=1.2 mg/dL 07/10/2020 DT Total, S 7:51 AM MANAGER GENERATION Specimen Anatomical Collection Method Collection Time Receive d Time (Source) Location / / Volume Laterality Blood (Blood, 07/10/2020 6:47 AM 07/10/20 20 7:10 Venous) MANAGER GENERATION AM MANAGER GENERATION Janusz Dillon.B.B.S. LAB BLOOD ADD-ON Performing Organization Address City/State/ZIP [facility] Phon e Number [facility] - [address] Calcium, Total (07/10/2020 6:47 AM MANAGER GENERATION) athologist Signature Calcium, Total, 8.7 8.6 - 10.0 07/10/2020 DTL S mg/dL 7:51 AM MANAGER GENERATION Specimen Anatomical Collection Method Collection Time Receive d Time (Source) Location / / Volume Laterality Blood (Blood, 07/10/2020 6:47 AM 07/10/20 7:10 Venous) MANAGER GENERATION AM MANAGER GENERATION Janusz Govea M.B.B.S. LAB BLOOD ADD-ON Performing Organization Address City/State/ZIP Code Phon e Number [facility] - [address] [place], [place] [address] [facility] [place] [address] [facility] [address] Chloride (07/10/2020 6:47 AM MANAGER GENERATION) P athologist Signature Chloride, S 105 98 - 107 07/10/2020 DTL mmol/L 7:51 AM MANAGER GENERATION Specimen Anatomical Collection Method Collection Time Receive d Time (Source) Location / / Volume Laterality Blood (Blood, 07/10/2020 6:47 AM 07/10/20 7:10 Venous) MANAGER GENERATION AM MANAGER GENERATION Nasjonathan Mcdonaldgat M.B.B.S. LAB BLOOD ADD-ON Performing Organization Address City/State/ZIP Code Phon e Number [facility] - [address] [place], [place] [address] [facility] [place] [address] [facility] [address] Magnesium (07/10/2020 6:47 AM MANAGER GENERATION) P athologist Signature Magnesium, S 2.2 1.7 - 2.3 07/10/2020 DTL mg/dL 7:51 AM MANAGER GENERATION Specimen Anatomical Collection Method Collection Time Receive d Time (Source) Location / / Volume Laterality Blood (Blood, 07/10/2020 6:47 AM 07/10/20 20 7:10 Venous) MANAGER GENERATION AM MANAGER GENERATION Reemama Harrygat M.B.B.S. LAB BLOOD ADD-ON Performing Organization Address City/State/ZIP Code Phon e Number [facility] - [address] [place], [place] [address] [place] [address] [facility] [address] Potassium (07/10/2020 6:47 AM MANAGER GENERATION) P athologist Signature Potassium, S 4.3 3.6 - 5.2 07/10/2020 DTL mmol/L 7:51 AM MANAGER GENERATION Specimen Anatomical Collection Method Collection Time Receive d Time (Source) Location / / Volume Laterality Blood (Blood, 07/10/2020 6:47 AM 07/10/20 7:10 Venous) MANAGER GENERATION AM MANAGER GENERATION Nasjonathan Mcdonaldgat M.B.B.S. LAB BLOOD ADD-ON Performing Organization Address City/[facility]/ZIP [facility] Phon e Number [facility] - [address] [place] [address] [address] [place] [address] [facility] [address] Sodium (07/10/2020 6:47 AM MANAGER GENERATION) P athologist Signature Sodium, S 141 135 - 145 07/10/2020 7:51 DTL mmol/L AM MANAGER GENERATION Specimen Anatomical Collection Method Collection Time Receive d Time (Source) Location / / Volume Laterality Blood (Blood, 07/10/2020 6:47 AM 07/10/20 7:10 Venous) MANAGER GENERATION AM MANAGER GENERATION Nasbaltazarma Gangat M.B.B.S. LAB BLOOD ADD-ON Performing Organization Address City/[facility] Phon e Number [facility] - [address] [place] [id number] [facility] [address] Alkaline Phosphatase (07/10/2020 6:47 AM MANAGER GENERATION) P athologist Signature Alkaline 49 35 - 104 07/10/2020 DTL Phosphatase, S U/L 7:51 AM MANAGER GENERATION Specimen Anatomical Collection Method Collection Time Receive d Time (Source) Location / / Volume Laterality Blood (Blood, 07/10/2020 6:47 AM 07/10/20 20 7:10 Venous) MANAGER GENERATION AM MANAGER GENERATION Nasbaltazarma Gangat M.B.B.S. LAB BLOOD ADD-ON Performing Organization Address City/[facility]/ZIP [facility] Phon e Number [facility] - [address] [place] [address] AST (Aspartate Aminotransferase) (07/10/2020 6:47 AM MANAGER GENERATION) Patholo gist Method Time Signature Aspartate 30 8 - 43 07/10/2020 DTL Aminotransferase U/L 7:51 AM MANAGER GENERATION (AST), S Specimen Anatomical Collection Method Collection Time Receive d Time (Source) Location / / Volume Laterality Blood (Blood, 07/10/2020 6:47 AM 07/10/20 20 7:10 Venous) MANAGER GENERATION AM MANAGER GENERATION Janusz Dillon.B.B.S. LAB BLOOD ADD-ON Performing Organization Address [facility] Phon e Number [facility] - 200 [place], [place] [address] [facility] [place] [address] [facility]-[address] ALT (Alanine Aminotransferase) (07/10/2020 6:47 AM MANAGER GENERATION) [facility] Method Time Signature Alanine 12 7 - 45 07/10/2020 DTL Aminotransferase U/L 7:51 AM MANAGER GENERATION (ALT), S Specimen Anatomical Collection Method Collection Time Receive d Time (Source) Location / / Volume Laterality Blood (Blood, 07/10/2020 6:47 AM 07/10/20 20 7:10 Venous) MANAGER GENERATION AM MANAGER GENERATION Janusz Dillon.Cain.B.S. LAB BLOOD ADD-ON Performing Organization Address [facility] Phon e Number [facility] - 200 [place], [place] [address] 05 [place] [address] (ABNORMAL) CBC with Differential, Blood (07/10/2020 6:47 AM MANAGER GENERATION) [facility] Method Time Signature Hemoglobin 6.8 (L) 11.6 - 07/10/2020 DTL 15.0 g/dL 7:22 AM MANAGER GENERATION Hematocrit 22.1 (L) 35.5 - 07/10/2020 DTL 44.9 % 7:22 AM MANAGER GENERATION Erythrocytes 2.51 (L) 3.92 - 07/10/2020 DTL 5.13 7:22 AM MANAGER GENERATION x10(12)/L MCV 88.0 78.2 - 07/10/2020 DTL 97.9 fL 7:22 AM MANAGER GENERATION RBC Distrib 25.8 (H) 12.2 - 07/10/2020 DTL Width 16.1 % 7:22 AM MANAGER GENERATION Platelet Count 119 (L) 157 - 371 07/10/2020 DTL x10(9)/L 7:22 AM MANAGER GENERATION Leukocytes 3.6 3.4 - 9.6 07/10/2020 DTL x10(9)/L 8:05 AM MANAGER GENERATION Neutrophils SeeComment 1.56 - 07/10/2020 DTL 6.45 8:05 AM MANAGER GENERATION x10(9)/L Comment: Auto-diff results not valid. Se e manual differential. Specimen Anatomical Collection Method Collection Time Receive d Time (Source) Location / / Volume Laterality Blood (Blood, 07/10/2020 6:47 AM 07/10/20 7:12 Venous) MANAGER GENERATION AM MANAGER GENERATION Janusz Govea M.B.B.S. LAB BLOOD ADD-ON Performing Organization Address City/[facility]/ZIP Code Phon e Number [facility] - [address] [place] [address] [address] [facility] [place], [place] [phone] [place] [address] Test, Qualitative, Urine (07/03/2020 8:43 AM MANAGER GENERATION) athologist Signature Negative 07/03/2020 TUNDE Test, U 8:56 AM MANAGER GENERATION Specimen Anatomical Collection Method Collection Time Receive d Time (Source) Location / / Volume Laterality Urine (Urine, 07/03/2020 8:43 AM 07/03/20 8:43 Clean Catch) MANAGER GENERATION AM MANAGER GENERATION Janusz Govea M.B.B.S. LAB URINE ORDERABLES Performing Organization Address [facility] Phon e Number [facility] - 200 [place], [place] [address] [facility] [place] [place] [address] Protein, Total (07/03/2020 7:46 AM MANAGER GENERATION) P athologist Signature Protein, Total, 6.3 6.3 - 7.9 07/03/2020 DTL S g/dL 9:00 AM MANAGER GENERATION Specimen Anatomical Collection Method Collection Time Receive d Time (Source) Location / / Volume Laterality Blood (Blood, 07/03/2020 7:46 AM 07/03/20 8:15 Venous) MANAGER GENERATION AM MANAGER GENERATION Janusz Govea M.B.B.S. LAB BLOOD ADD-ON Performing Organization Address City/[facility] Phon e Number [facility] - [address] [phone] [facility] 200 [facility] [place] Albumin (07/03/2020 7:46 AM MANAGER GENERATION) athologist Signature Albumin, S 4.4 3.5 - 5.0 07/03/2020 DTL g/dL 9:00 AM MANAGER GENERATION Specimen Anatomical Collection Method Collection Time Receive d Time (Source) Location / / Volume Laterality Blood (Blood, 07/03/2020 7:46 AM 07/03/20 8:15 Venous) MANAGER GENERATION AM MANAGER GENERATION Janusz Mcdonaldgat M.B.B.S. LAB BLOOD ADD-ON Performing Organization Address City/State/ZIP Code Phon e Number [facility] - [id number] [place] [address] Glucose, Random (07/03/2020 7:46 AM MANAGER GENERATION) athologist Signature Glucose, S 133 70 - 140 07/03/2020 DTL mg/dL 9:00 AM MANAGER GENERATION Specimen Anatomical Collection Method Collection Time Receive d Time (Source) Location / / Volume Laterality Blood (Blood, 07/03/2020 7:46 AM 07/03/20 8:15 Venous) MANAGER GENERATION AM MANAGER GENERATION Janusz Govea M.B.B.S. LAB BLOOD TROPONIN Performing Organization Address City/[facility]/ZIP Code Phon e Number [facility] - [phone] [place] [address] Uric Acid (07/03/2020 7:46 AM MANAGER GENERATION) athologist Signature Uric Acid, S 4.2 2.7 - 6.1 07/03/2020 DTL mg/dL 9:00 AM MANAGER GENERATION Specimen Anatomical Collection Method Collection Time Receive d Time (Source) Location / / Volume Laterality Blood (Blood, 07/03/2020 7:46 AM 07/03/20 8:15 Venous) MANAGER GENERATION AM MANAGER GENERATION Nasbaltazarma Gangat M.B.B.S. LAB BLOOD ADD-ON Performing Organization Address City/State/ZIP Code Phon e Number [facility] - [address] [place], [place] [address] [place] [phone] [facility] 200 [address] [facility] Creatinine with Estimated GFR (07/03/2020 7:46 AM MANAGER GENERATION) athologist Signature Creatinine 1.02 0.59 - 07/03/2020 DTL 1.04 mg/dL 9:00 AM MANAGER GENERATION eGFR-Non 63 >=60 07/03/2020 DTL Black/ mL/min/BSA 9:00 AM MANAGER GENERATION Spanish Comment: ----ADDITIONAL INFORMATION---- Estimated GFR calculated using the 2009 CKD_EPI creatinine equation. eGFR-Black/ 73 >=60 mL/min/BSA 2019 9:00 AM MANAGER GENERATION DTL Comment: ----ADDITIONAL INFORMATION---- Estimated GFR calculated using the 2009 CKD_EPI creatinine equation. Specimen Anatomical Collection Method Collection Time Receive d Time (Source) Location / / Volume Laterality Blood (Blood, 07/03/2020 7:46 AM 07/03/20 8:15 Venous) MANAGER GENERATION AM MANAGER GENERATION Janusz HayesB.B.S. LAB BLOOD ADD-ON Performing Organization Address City/State/ZIP Code Phon e Number [facility] - [address] [address] [facility] [address] BUN (Blood Urea Nitrogen) (07/03/2020 7:46 AM MANAGER GENERATION) athologist Signature BUN (Blood Urea 20 6 - 21 07/03/2020 DTL Nitrogen), S mg/dL 9:00 AM MANAGER GENERATION Specimen Anatomical Collection Method Collection Time Receive d Time (Source) Location / / Volume Laterality Blood (Blood, 07/03/2020 7:46 AM 07/03/20 8:15 Venous) MANAGER GENERATION AM MANAGER GENERATION Janusz Govea M.B.B.S. LAB BLOOD ADD-ON Performing Organization Address City/State/ZIP Code Phon e Number [facility] - [address] [place] [address] [place] [phone] [facility] [address] Bilirubin, Total (07/03/2020 7:46 AM MANAGER GENERATION) athologist Signature Bilirubin, 0.6 <=1.2 mg/dL 07/03/2020 DTL Total, S 9:00 AM MANAGER GENERATION Specimen Anatomical Collection Method Collection Time Receive d Time (Source) Location / / Volume Laterality Blood (Blood, 07/03/2020 7:46 AM 07/03/20 8:15 Venous) MANAGER GENERATION AM MANAGER GENERATION Nasjonathan Mcdonaldgat M.B.B.S. LAB BLOOD ADD-ON Performing Organization Address City/State/[facility] Phon e Number [facility] - [address] Calcium, Total (07/03/2020 7:46 AM MANAGER GENERATION) athologist Signature Calcium, Total, 8.6 8.6 - 10.0 07/03/2020 DTL S mg/dL 9:00 AM MANAGER GENERATION Specimen Anatomical Collection Method Collection Time Receive d Time (Source) Location / / Volume Laterality Blood (Blood, 07/03/2020 7:46 AM 07/03/20 8:15 Venous) MANAGER GENERATION AM MANAGER GENERATION Janusz Govea M.B.B.S. LAB BLOOD ADD-ON Performing Organization Address City/[facility] Phon e Number [facility] - [address] (ABNORMAL) Chloride (07/03/2020 7:46 AM MANAGER GENERATION) athologist Signature Chloride, S 109 (H) 98 - 107 07/03/2020 DTL mmol/L 9:00 AM MANAGER GENERATION Specimen Anatomical Collection Method Collection Time Receive d Time (Source) Location / / Volume Laterality Blood (Blood, 07/03/2020 7:46 AM 07/03/20 8:15 Venous) MANAGER GENERATION AM MANAGER GENERATION Naseewilman Gangat M.B.B.S. LAB BLOOD ADD-ON Performing Organization Address City/State/ZIP [facility] Phon e Number [facility] - [address] Magnesium (07/03/2020 7:46 AM MANAGER GENERATION) athologist Signature Magnesium, S 2.0 1.7 - 2.3 07/03/2020 DTL mg/dL 9:00 AM MANAGER GENERATION Specimen Anatomical Collection Method Collection Time Receive d Time (Source) Location / / Volume Laterality Blood (Blood, 07/03/2020 7:46 AM 07/03/20 8:15 Venous) MANAGER GENERATION AM MANAGER GENERATION Naseema Gangat M.B.B.S. LAB BLOOD ADD-ON Performing Organization Address City/State/ZIP [facility] Phon e Number [facility] - [address] [place], [place] [address] [place] [address] [address] [facility] Potassium (07/03/2020 7:46 AM MANAGER GENERATION) athologist Signature Potassium, S 4.1 3.6 - 5.2 07/03/2020 DTL mmol/L 9:00 AM MANAGER GENERATION Specimen Anatomical Collection Method Collection Time Receive d Time (Source) Location / / Volume Laterality Blood (Blood, 07/03/2020 7:46 AM 07/03/20 8:15 Venous) MANAGER GENERATION AM MANAGER GENERATION Naseema Gangat M.B.B.S. LAB BLOOD ADD-ON Performing Organization Address City/[facility] Code Phon e Number [facility] - [address] [place] [address] [place] [phone] [facility] [address] Sodium (07/03/2020 7:46 AM MANAGER GENERATION) athologist Signature Sodium, S 144 135 - 145 07/03/2020 9:00 DTL mmol/L AM MANAGER GENERATION Specimen Anatomical Collection Method Collection Time Receive d Time (Source) Location / / Volume Laterality Blood (Blood, 07/03/2020 7:46 AM 07/03/20 8:15 Venous) MANAGER GENERATION AM MANAGER GENERATION Naseema Gangat M.B.B.S. LAB BLOOD ADD-ON Performing Organization Address City/State/ZIP [facility] Phon e Number [facility] - [address] [place] [address] [place] [phone] [place] [address] Alkaline Phosphatase (07/03/2020 7:46 AM MANAGER GENERATION) P athologist Signature Alkaline 46 35 - 104 07/03/2020 DTL Phosphatase, S U/L 9:00 AM MANAGER GENERATION Specimen Anatomical Collection Method Collection Time Receive d Time (Source) Location / / Volume Laterality Blood (Blood, 07/03/2020 7:46 AM 07/03/20 8:15 Venous) MANAGER GENERATION AM MANAGER GENERATION Janusz Dillon.B.B.S. LAB BLOOD ADD-ON Performing Organization Address City/State/[facility] Phon e Number [facility] - [address] AST (Aspartate Aminotransferase) (07/03/2020 7:46 AM MANAGER GENERATION) [facility] gist Method Time Signature Aspartate 29 8 - 43 07/03/2020 DTL Aminotransferase U/L 9:00 AM MANAGER GENERATION (AST), S Specimen Anatomical Collection Method Collection Time Receive d Time (Source) Location / / Volume Laterality Blood (Blood, 07/03/2020 7:46 AM 07/03/20 8:15 Venous) MANAGER GENERATION AM MANAGER GENERATION Janusz Dillon.B.B.S. LAB BLOOD ADD-ON Performing Organization Address City/[facility] Code Phon e Number [facility] - [address] [place] [address] [place] [address] ALT (Alanine Aminotransferase) (07/03/2020 7:46 AM MANAGER GENERATION) [facility] gist Method Time Signature Alanine 15 7 - 45 07/03/2020 DTL Aminotransferase U/L 9:00 AM MANAGER GENERATION (ALT), S Specimen Anatomical Collection Method Collection Time Receive d Time (Source) Location / / Volume Laterality Blood (Blood, 07/03/2020 7:46 AM 07/03/20 8:15 Venous) MANAGER GENERATION AM MANAGER GENERATION Janusz Dillon.B.B.S. LAB BLOOD ADD-ON Performing Organization Address City/[facility]/ZIP [facility] Phon e Number [facility] - [address] [place] [address] [place] [address] [facility] [address] (ABNORMAL) CBC with Differential, Blood (07/03/2020 7:46 AM MANAGER GENERATION) [facility] gist Method Time Signature Hemoglobin 6.9 (L) 11.6 - 07/03/2020 DTL 15.0 g/dL 8:30 AM MANAGER GENERATION Hematocrit 22.1 (L) 35.5 - 07/03/2020 DTL 44.9 % 8:30 AM MANAGER GENERATION Erythrocytes 2.45 (L) 3.92 - 07/03/2020 DTL 5.13 8:30 AM MANAGER GENERATION x10(12)/L MCV 90.2 78.2 - 07/03/2020 DTL 97.9 fL 8:30 AM MANAGER GENERATION RBC Distrib Width 25.9 (H) 12.2 - 07/03/2020 DTL 16.1 % 8:30 AM MANAGER GENERATION Platelet Count 136 (L) 157 - 371 07/03/2020 DTL x10(9)/L 8:30 AM MANAGER GENERATION Leukocytes 3.3 (L) 3.4 - 9.6 07/03/2020 DTL x10(9)/L 9:30 AM MANAGER GENERATION Comment: Results confirmed by smear. Neutrophils SeeComment 1.56 - 6.45 x10(9)/L 07/03/2020 9:30 AM MANAGER GENERATION DTL Comment: Auto-diff results not valid. Se e manual differential. Specimen Anatomical Collection Method Collection Time Receive d Time (Source) Location / / Volume Laterality Blood (Blood, 07/03/2020 7:46 AM 07/03/20 20 8:16 Venous) MANAGER GENERATION AM MANAGER GENERATION Janusz Ardon LAB BLOOD ADD-ON Performing Organization Address City/State/ZIP Code Phon e Number [facility] - [address] [place], [place] [address] [facility] [place] [address] [facility] [address] documented in this encounter Visit Diagnoses Diagnosis Myelofibrosis (HCC) - Primary documented in this encounter
--- OUTSIDE RECORDS SUMMARY | 2022-05-02 12:37 | XMS_ITS | Encounter Summary ---
:1970 Author Organization [facility] Address [address] [place] [address] Care Team Providers Name Role Phone Unavailable Primary Care Provider Unavailable Reason for Referral Outpatient (Routine) - Closed Specialty Diagnoses / Procedures Referred By Contact Refer red To Contact Diagnoses Myelofibrosis (HCC) Janusz Govea M.B.B.S. [facility] Procedures ECG [address] [place] [phone] Referral ID Status Reason Start Date Expiration Date Visits Requ ested Visits Authorized [id number] Closed 06/06/2020 06/06/2021 1 1 ANY LABORER Encounter Details Date Type Department Care Team Description 06/06/2020 Orders Only Division of Hematology Janusz Govea M yelofibrosis (HCC) in [facility] M.B.B.S. 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 documented as of this encounter Plan of Treatment Not on filedocumented as of this encounter Results ECG 12 Lead (06/06/2020 8:51 AM COMPANY LABORER) P athologist Signature Ventricular Rate 72 BPM MUSE ECG/Min [place] Interval 156 ms MUSE QRSD Interval 82 ms MUSE QT Interval 408 ms MUSE QTC Interval 446 ms MUSE P [employer] 8 degrees MUSE R [employer] 25 degrees MUSE T Wave [employer] 42 degrees MUSE Specimen Anatomical Collection Method Collection Time Receive d Time (Source) Location / / Volume Laterality 06/06/2020 8:51 AM 0 9:08 COMPANY LABORER AM COMPANY LABORER Impressions MUSE - 06/06/2020 9:08 AM COMPANY LABORER Normal sinus rhythm Normal ECG When compared [...]
--- OUTSIDE RECORDS SUMMARY | 2022-05-02 12:37 | XMS_ITS | Encounter Summary ---
:1970 Author Organization [facility] Address [address] [place] [address] Care Team Providers Name Role Phone Unavailable Primary Care Provider Unavailable Encounter Details Date Type Department Care Team Description 06/09/2020 Orders Only Division of [facility], Myelofibrosis ( HCC) Hematology in [place] (Primary Dx) [address] [place] [phone] Social History Tobacco Use Types Packs/Day Years Used Date Smoking Tobacco: Former Smokeless Tobacco: Never Sex Assigned at Date Recorded Female 07/24/2021 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
--- OUTSIDE RECORDS SUMMARY | 2022-05-02 12:38 | XMS_ITS | Encounter Summary ---
:1970 Author Organization [facility] Address [address] [place] [address] Care Team Providers Name Role Phone Unavailable Primary Care Provider Unavailable Encounter Details Date Type Department Care Team Description 06/01/2020 Hospital Encounter Outpatient Procedure Janusz Govea M.B.B.S. 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 documented in this encounter Results NE DX BONE MARROW BX & ASPIR (06/01/2020 2:30 PM QUALITY PROCESS ENGINEER) Specimen (Source) Anatomical Location Collection Method / Collectio n Time Received Time / Laterality Volume Bone Marrow Narrative MMODAL - 06/01/2020 2:30 PM QUALITY PROCESS ENGINEER Kenneth Bridges R.N. ? 06/01/2020 ??2:51 PM Biopsy Bone Marrow Date/Time: 06/01/2020 2:50 PM Performed by: Kenneth Bridges R.N. Authorized by: Janusz Govea M.B.BZahraaSZahraa Care team members present 1. Ronny Natarajan MLS([facility]) PROCEDURE DETAILS Procedure: ??Bone Marrow aspiration [...]
--- OUTSIDE RECORDS SUMMARY | 2022-05-02 12:38 | XMS_ITS | Encounter Summary ---
:1970 Author Organization [facility] Address [address] [place] [address] Care Team Providers Name Role Phone Unavailable Primary Care Provider Unavailable Reason for Referral Outpatient (Routine) - Closed Specialty Diagnoses / Procedures Referred By Contact Refer red To Contact Hematology Oncology Diagnoses Myelofibrosis (HCC) [facility] [address] [place] [phone] Referral ID Status Reason Start Date Expiration Date Visits Requ ested Visits Authorized [id number] Closed 06/02/2020 06/02/2021 1 1 Scheduling Instructions Please schedule with Dr. 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
--- OUTSIDE RECORDS SUMMARY | 2022-05-02 12:38 | XMS_ITS | Encounter Summary ---
:1970 Author Organization [facility] Address [address] [place] [address] Care Team Providers Name Role Phone Unavailable Primary Care Provider Unavailable Reason for Visit Appointment Request (Routine) - Closed Specialty Diagnoses / Procedures Referred By Contact Refer red To Contact Hematology Oncology Referral ID Status Reason Start Date Expiration Date Visits Requ ested Visits Authorized [id number] Closed 06/02/2020 06/02/2021 1 1 Encounter Details Date Type Department Care Team Description 06/02/2020 Admin Visit Department of Oncology in [place], [place] [address] [place] [phone] Social History Tobacco Use Types Packs/Day Years Used Date Smoking Tobacco: Former Smokeless Tobacco: Never Sex Assigned at Date Recorded Female 07/24/2021 11:03 AM 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
--- OUTSIDE RECORDS SUMMARY | 2022-05-02 12:38 | XMS_ITS | Encounter Summary ---
:1970 Author Organization [facility] Address [address] [place] [address] Care Team Providers Name Role Phone Unavailable Primary Care Provider Unavailable Reason for Visit Outpatient (Routine) - Closed Specialty Diagnoses / Procedures Referred By Contact Refer red To Contact Radiology Diagnoses Myelofibrosis (HCC) [facility] Procedures MR Abdomen without IV Contrast MR Abdomen without and with IV Contrast NM MRI ABDOMEN WO/W CNTRST [address] [place] [phone] Referral ID Status Reason Start Date Expiration Date Visits Requ ested Visits Authorized [id number] Closed 05/22/2020 05/23/2021 1 1 Encounter Details Date Type Department Care Team Description 06/01/2020 Hospital Encounter Department of Xuan Myelrome rosliliana ([facility]) Radiology, [facility].[place], [place] [address] [place] [address] [place] [phone] Social History Tobacco Use Types Packs/Day Years Used Date Smoking Tobacco: Former Smokeless Tobacco: Never Sex Assigned at Date Recorded Female 07/24/2021 11:03 AM 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 documented in this encounter Results MR Abdomen without IV Contrast (06/01/2020 4:44 PM RADIO PROGRAM DIRECTOR) Anatomical Region Laterality Modality Abdomen, Abdominal RST LOS, Abdominal ARZ LOS, N/A Magnetic Resonance Abdominal FLA LOS Specimen (Source) Anatomical Collection Method Collection Time Re ceived Time Location / / Volume Laterality 06/02/2020 8:48 AM RADIO PROGRAM DIRECTOR Impressions 06/02/2020 9:15 AM RADIO PROGRAM DIRECTOR Exam not performed. Narrative 06/02/2020 9:15 AM RADIO PROGRAM DIRECTOR EXAM: ??MR ABDOMEN WITHOUT IV CONTRAST COMPARISON: ??None FINDINGS: ??This examination was not com pleted due to patient discomfort, and was not charged to the patient. A few diffus ion-weighted images demonstrate marked splenomegaly which is suboptimally evalu ated. This examination can be repeated with anesthesia or alternatively splenic volumes can be calculated by CT. Procedure Note Cathryn Hutchinson M.D. - 06/02/2020 EXAM: MR ABDOMEN WITHOUT IV CONTRAST COMPARISON: None FINDINGS: This examination was not compl eted due to patient discomfort, and was not charged to the patient. A few diffus ion-weighted images demonstrate marked splenomegaly which is suboptimally evalu ated. This examination can be repeated with anesthesia or alternatively splenic volumes can be calculated by CT. IMPRESSION: Exam not performed. Janusz CAMPOS MRI PROCEDURES documented in this encounter Visit Diagnoses Diagnosis Myelofibrosis (HCC) documented in this encounter
--- OUTSIDE RECORDS SUMMARY | 2022-05-02 12:38 | XMS_ITS | Encounter Summary ---
:1970 Author Organization [facility] Address [address] [place] [address] Care Team Providers Name Role Phone Unavailable Primary Care Provider Unavailable Reason for Visit Outpatient (Routine) - Closed Specialty Diagnoses / Procedures Referred By Contact Refer red To Contact Radiology Diagnoses Myelofibrosis (HCC) [facility] Procedures MR Abdomen without IV Contrast MR Abdomen without and with IV Contrast [place] MRI ABDOMEN WO/W CNTRST [address] [place] [phone] Referral ID Status Reason Start Date Expiration Date Visits Requ ested Visits Authorized [id number] Closed 05/22/2020 05/23/2021 1 1 Encounter Details Date Type Department Care Team Description 05/25/2020 Hospital Encounter Department of Estrellita Govea (Patient: Radiology, Lexus Boudreaux, Kerry) 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
--- OUTSIDE RECORDS SUMMARY | 2022-05-02 12:38 | XMS_ITS | Encounter Summary ---
:1970 Author Organization [facility] Address [address] [place] [address] Care Team Providers Name Role Phone Unavailable Primary Care Provider Unavailable Reason for Visit Reason Comments Intake Assessment Encounter Details Date Type Department Care Team Description 05/24/2020 Clinical Communication Division of [facility] Hematology in [place], [place] M.B.B.S. 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 OYMENT APPEALS EXAMINER documented in 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
--- OUTSIDE RECORDS SUMMARY | 2022-05-02 12:38 | XMS_ITS | Encounter Summary ---
:1970 Author Organization [facility] Address [address] [place] [address] Care Team Providers Name Role Phone Unavailable Primary Care Provider Unavailable Encounter Details Date Type Department Care Team Description 05/25/2020 Hospital Encounter Department of Gangat, Myelofib rosis ([facility] Laboratory Medicine [facility], and Pathology, [facility], in [address] [place] [phone] [place], [place] [phone] (Work) [phone] Social History Tobacco Use Types Packs/Day Years Used Date Smoking Tobacco: Former Smokeless Tobacco: Never Sex Assigned at Date Recorded Female 07/24/2021 11:03 AM NURSING CARE PARTNER documented as of this encounter Medications at [...] (HCC) Results for this MPL) REFLEX AM NURSING CARE PARTNER procedure are i n the results section. LIPASE, S/P Routine 05/25/2020 11:16 Myelofibrosis (HCC) Resu lts for this AM NURSING CARE PARTNER procedure are i n the results section. AMYLASE, TOT, S Routine 05/25/2020 11:16 Myelofibrosis (HCC) R esults for this AM NURSING CARE PARTNER procedure are i n the results section. PROTHROMBIN TIME (PT), P Routine 05/25/2020 11:15 Myelofibrosi s (HCC) Results for this AM NURSING CARE PARTNER procedure are i n the results section. URIC ACID, S/P Routine 05/25/2020 11:15 Myelofibrosis (HCC) Re sults for this AM NURSING CARE PARTNER procedure are i n the results section. BUN (BLOOD UREA Routine 05/25/2020 11:15 Myelofibrosis (HCC) R esults for this NITROGEN), S/P AM NURSING CARE PARTNER procedure are in the results section. ALANINE AMINOTRANSFERASE Routine 05/25/2020 11:15 Myelofibrosi s (HCC) Results for this (ALT), S/P AM NURSING CARE PARTNER procedure are i n the results section. ASPARTATE Routine 05/25/2020 11:15 Myelofibrosis (HCC) Resu lts for this AMINOTRANSFERASE (AST), AM NURSING CARE PARTNER proc edure are in S/P the results section. SODIUM, S/P Routine 05/25/2020 11:15 Myelofibrosis (HCC) Resu lts for this AM NURSING CARE PARTNER procedure are i n the results section. PROTEIN, TOTAL, S/P Routine 05/25/2020 11:15 Myelofibrosis (HC C) Results for this AM NURSING CARE PARTNER procedure are i n the results section. POTASSIUM, S/P Routine 05/25/2020 11:15 Myelofibrosis (HCC) Re sults for this AM NURSING CARE PARTNER procedure are i n the results section. ALKALINE PHOSPHATASE, Routine 05/25/2020 11:15 Myelofibrosis ( HCC) Results for this S/P AM NURSING CARE PARTNER procedure are i n the results section. MAGNESIUM, S Routine 05/25/2020 11:15 Myelofibrosis (HCC) Resu lts for this AM NURSING CARE PARTNER procedure are i n the results section. GLUCOSE, RANDOM, S/P Routine 05/25/2020 11:15 Myelofibrosis (H CC) Results for this AM NURSING CARE PARTNER procedure are i n the results section. CREATININE WITH EGFR, Routine 05/25/2020 11:15 Myelofibrosis ( HCC) Results for this S/P AM NURSING CARE PARTNER procedure are i n the results section. CHLORIDE, S/P Routine 05/25/2020 11:15 Myelofibrosis (HCC) Res ults for this AM NURSING CARE PARTNER procedure are i n the results section. CALCIUM, TOT, S/P Routine 05/25/2020 11:15 Myelofibrosis (HCC) Results for this AM NURSING CARE PARTNER procedure are i n the results section. BILIRUBIN, TOT, S/P Routine 05/25/2020 11:15 Myelofibrosis (HC C) Results for this AM NURSING CARE PARTNER procedure are i n the results section. ALBUMIN, S/P Routine 05/25/2020 11:15 Myelofibrosis (HCC) Resu lts for this AM NURSING CARE PARTNER procedure are i n the results section. SPSMA RESULT Routine 05/25/2020 11:14 Results for this AM NURSING CARE PARTNER procedure are i n the results section. CBC WITH DIFFERENTIAL, B Routine 05/25/2020 11:14 Myelofibrosi s (HCC) Results for this AM NURSING CARE PARTNER procedure are i n the results section. 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 1:49 PM NURSING CARE PARTNER Comment: CALR mutation is identified in approximately [...] Exon 9 of CALR was amplified from [employer] DNA by polymerase chain reaction (PCR). The [...] and its performa nce characteristics determined by [facility] in a manner consistent with CLIA requirements. This test has not been cleared or approved by the [place] and Drug Administration. Specimen Anatomical Collection Method Collection Time Receive d Time (Source) Location / / Volume Laterality Varies (Blood, 05/25/2020 11:17 0 Venous) AM NURSING CARE PARTNER 12:45 PM NURSING CARE PARTNER Narrative This result has an attachment that is no t available. Janusz Ardon LAB GENETIC TESTING Performing Organization Address City/State/ZIP Code Phon e Number [facility] - [address] [place], [place] [address] [facility] [place] [address] Laboratories-[facility] [address] Lipase (05/25/2020 11:16 AM NURSING CARE PARTNER) athologist Signature Lipase, S 29 13 - 60 U/L 05/25/2020 DTL 12:05 PM NURSING CARE PARTNER Specimen Anatomical Collection Method Collection Time Receive d Time (Source) Location / / Volume Laterality Blood (Blood, 05/25/2020 11:16 05/25/2020 Venous) AM NURSING CARE PARTNER 11:54 AM NURSING CARE PARTNER Janusz Higgins.B.S. LAB BLOOD ADD-ON Performing Organization Address City/[facility]/ZIP Code Phon e Number [facility] - 200 [place], [place] [address] [place] [address] [place] [address] Laboratories-[address] Amylase, Total (05/25/2020 11:16 AM NURSING CARE PARTNER) P athologist Signature Amylase, Total, 28 26 - 102 05/25/2020 DTL S U/L 12:05 PM NURSING CARE PARTNER Specimen Anatomical Collection Method Collection Time Receive d Time (Source) Location / / Volume Laterality Blood (Blood, 05/25/2020 11:16 05/25/2020 Venous) AM NURSING CARE PARTNER 11:54 AM NURSING CARE PARTNER Janusz Higgins.B.S. LAB BLOOD ADD-ON Performing Organization Address City/[facility] Phon e Number [facility] - 200 [place], [place] [address] [place] [address] (ABNORMAL) Prothrombin Time (PT) (05/25/2020 11:15 AM NURSING CARE PARTNER) Patholo gist Method Time Signature Prothrombin 13.7 (H) 9.4 - 12.5 05/25/2020 DTL Time, P sec 12:32 PM NURSING CARE PARTNER INR 1.2 0.9 - 1.1 05/25/2020 DTL 12:32 PM NURSING CARE PARTNER Comment: ----ADDITIONAL INFORMATION---- Standard intensity warfarin therapeutic range: 2.0 to 3.0 ?? High intensity warfarin therapeutic rang e: 2.5 to 3.5 Specimen Anatomical Collection Method Collection Time Receive d Time (Source) Location / / Volume Laterality Blood (Blood, 05/25/2020 11:15 05/25/2020 Venous) AM NURSING CARE PARTNER 11:41 AM NURSING CARE PARTNER Janusz Higgins.B.S. LAB BLOOD ADD-ON Performing Organization Address City/[facility]/ZIP Code Phon e Number [facility] - [address] [place], [place] [address] [place] [address] [facility] [address] [facility] Glucose, Random (05/25/2020 11:15 AM NURSING CARE PARTNER) athologist Signature Glucose, S 136 70 - 140 05/25/2020 DTL mg/dL 12:03 PM NURSING CARE PARTNER Specimen Anatomical Collection Method Collection Time Receive d Time (Source) Location / / Volume Laterality Blood (Blood, 05/25/2020 11:15 05/25/2020 Venous) AM NURSING CARE PARTNER 11:48 AM NURSING CARE PARTNER Janusz Higgins.B.S. LAB BLOOD TROPONIN Performing Organization Address City/State/ZIP Code Phon e Number [facility] - [address] [place] [address] (ABNORMAL) Uric Acid (05/25/2020 11:15 AM NURSING CARE PARTNER) athologist Signature Uric Acid, S 9.2 (H) 2.7 - 6.1 05/25/2020 DTL mg/dL 12:03 PM NURSING CARE PARTNER Specimen Anatomical Collection Method Collection Time Receive d Time (Source) Location / / Volume Laterality Blood (Blood, 05/25/2020 11:15 05/25/2020 Venous) AM NURSING CARE PARTNER 11:48 AM NURSING CARE PARTNER Janusz Dillon.B.B.S. LAB BLOOD ADD-ON Performing Organization Address City/State/ZIP Code Phon e Number [facility] - [address] [place], [place] [address] [place] [address] Creatinine with Estimated GFR (05/25/2020 11:15 AM NURSING CARE PARTNER) athologist Signature Creatinine 1.04 0.59 - 05/25/2020 DTL 1.04 mg/dL 12:03 PM NURSING CARE PARTNER eGFR-Non 62 >=60 05/25/2020 DT Black/ mL/min/BSA 12:03 PM NURSING CARE PARTNER [place] Comment: ----ADDITIONAL INFORMATION---- Estimated GFR calculated using the 2009 CKD_EPI creatinine equation. eGFR-Black/ 71 >=60 mL/min/BSA 2019 12:03 PM NURSING CARE PARTNER DTL Comment: ----ADDITIONAL INFORMATION---- Estimated GFR calculated using the 2009 CKD_EPI creatinine equation. Specimen Anatomical Collection Method Collection Time Receive d Time (Source) Location / / Volume Laterality Blood (Blood, 05/25/2020 11:15 05/25/2020 Venous) AM NURSING CARE PARTNER 11:48 AM NURSING CARE PARTNER Janusz Govea M.B.B.S. LAB BLOOD ADD-ON Performing Organization Address City/State/ZIP Code Phon e Number [facility] - [address] BUN (Blood Urea Nitrogen) (05/25/2020 11:15 AM NURSING CARE PARTNER) P athologist Signature BUN (Blood Urea 19 6 - 21 05/25/2020 DTL Nitrogen), S mg/dL 12:03 PM NURSING CARE PARTNER Specimen Anatomical Collection Method Collection Time Receive d Time (Source) Location / / Volume Laterality Blood (Blood, 05/25/2020 11:15 05/25/2020 Venous) AM NURSING CARE PARTNER 11:48 AM NURSING CARE PARTNER Janusz Govea M.B.B.S. LAB BLOOD ADD-ON Performing Organization Address City/[facility]/ZIP [facility] Phon e Number [facility] - [address] Alkaline Phosphatase (05/25/2020 11:15 AM NURSING CARE PARTNER) P athologist Signature Alkaline 38 35 - 104 05/25/2020 DTL Phosphatase, S U/L 12:03 PM NURSING CARE PARTNER Specimen Anatomical Collection Method Collection Time Receive d Time (Source) Location / / Volume Laterality Blood (Blood, 05/25/2020 11:15 05/25/2020 Venous) AM NURSING CARE PARTNER 11:48 AM NURSING CARE PARTNER Nasjonathan Govea M.B.B.S. LAB BLOOD ADD-ON Performing Organization Address City/State/ZIP Code Phon e Number [facility] - [address] [place], [place] [address] [place] [address] [place] [address] [facility] [address] AST (Aspartate Aminotransferase) (05/25/2020 11:15 AM NURSING CARE PARTNER) Patholo gist Method Time Signature Aspartate 29 8 - 43 05/25/2020 DTL Aminotransferase U/L 12:03 PM NURSING CARE PARTNER (AST), S Specimen Anatomical Collection Method Collection Time Receive d Time (Source) Location / / Volume Laterality Blood (Blood, 05/25/2020 11:15 05/25/2020 Venous) AM NURSING CARE PARTNER 11:48 AM NURSING CARE PARTNER Naseema Gangat M.B.B.S. LAB BLOOD ADD-ON Performing Organization Address City/State/ZIP Code Phon e Number [facility] - [address] [place], [place] [address] [place] [address] ALT (Alanine Aminotransferase) (05/25/2020 11:15 AM NURSING CARE PARTNER) [facility] Method Time Signature Alanine 15 7 - 45 05/25/2020 DTL Aminotransferase U/L 12:03 PM NURSING CARE PARTNER (ALT), S Specimen Anatomical Collection Method Collection Time Receive d Time (Source) Location / / Volume Laterality Blood (Blood, 05/25/2020 11:15 05/25/2020 Venous) AM NURSING CARE PARTNER 11:48 AM NURSING CARE PARTNER Naseema Gangat M.B.B.S. LAB BLOOD ADD-ON Performing Organization Address City/State/ZIP Code Phon e Number [facility] - [address] [place], [place] [address] [place] [address] Bilirubin, Total (05/25/2020 11:15 AM NURSING CARE PARTNER) P athologist Signature Bilirubin, 0.9 <=1.2 mg/dL 05/25/2020 DTL Total, S 12:03 PM NURSING CARE PARTNER Specimen Anatomical Collection Method Collection Time Receive d Time (Source) Location / / Volume Laterality Blood (Blood, 05/25/2020 11:15 05/25/2020 Venous) AM NURSING CARE PARTNER 11:48 AM NURSING CARE PARTNER Naseema Gangat M.B.B.S. LAB BLOOD ADD-ON Performing Organization Address City/State/ZIP Code Phon e Number [facility] - [address] [place], [place] [address] [place] [address] [facility] [address] Albumin (05/25/2020 11:15 AM NURSING CARE PARTNER) athologist Signature Albumin, S 4.4 3.5 - 5.0 05/25/2020 DTL g/dL 12:03 PM NURSING CARE PARTNER Specimen Anatomical Collection Method Collection Time Receive d Time (Source) Location / / Volume Laterality Blood (Blood, 05/25/2020 11:15 05/25/2020 Venous) AM NURSING CARE PARTNER 11:48 AM NURSING CARE PARTNER Janusz Govea M.B.B.S. LAB BLOOD ADD-ON Performing Organization Address City/State/[facility] Phon e Number [facility] - [address] [place] [address] [address] [facility] (ABNORMAL) Protein, Total (05/25/2020 11:15 AM NURSING CARE PARTNER) athologist Signature Protein, 6.2 (L) 6.3 - 7.9 05/25/2020 DTL Total, S g/dL 12:03 PM NURSING CARE PARTNER Specimen Anatomical Collection Method Collection Time Receive d Time (Source) Location / / Volume Laterality Blood (Blood, 05/25/2020 11:15 05/25/2020 Venous) AM NURSING CARE PARTNER 11:48 AM NURSING CARE PARTNER Janusz Govea M.B.B.S. LAB BLOOD ADD-ON Performing Organization Address City/[facility] Code Phon e Number [facility] - [address] [place] [address] Calcium, Total (05/25/2020 11:15 AM NURSING CARE PARTNER) athologist Signature Calcium, Total, 8.8 8.6 - 10.0 05/25/2020 DTL S mg/dL 12:03 PM NURSING CARE PARTNER Specimen Anatomical Collection Method Collection Time Receive d Time (Source) Location / / Volume Laterality Blood (Blood, 05/25/2020 11:15 05/25/2020 Venous) AM NURSING CARE PARTNER 11:48 AM NURSING CARE PARTNER Janusz Govea M.B.B.S. LAB BLOOD ADD-ON Performing Organization Address City/State/ZIP [facility] Phon e Number [facility] - [address] Chloride (05/25/2020 11:15 AM NURSING CARE PARTNER) athologist Signature Chloride, S 105 98 - 107 05/25/2020 DTL mmol/L 12:03 PM NURSING CARE PARTNER Specimen Anatomical Collection Method Collection Time Receive d Time (Source) Location / / Volume Laterality Blood (Blood, 05/25/2020 11:15 05/25/2020 Venous) AM NURSING CARE PARTNER 11:48 AM NURSING CARE PARTNER Janusz Govea M.B.B.S. LAB BLOOD ADD-ON Performing Organization Address City/State/[facility] Phon e Number [facility] - [address] [place] [address] [address] [facility] [address] (ABNORMAL) Magnesium (05/25/2020 11:15 AM NURSING CARE PARTNER) athologist Signature Magnesium, S 2.5 (H) 1.7 - 2.3 05/25/2020 DTL mg/dL 12:03 PM NURSING CARE PARTNER Specimen Anatomical Collection Method Collection Time Receive d Time (Source) Location / / Volume Laterality Blood (Blood, 05/25/2020 11:15 05/25/2020 Venous) AM NURSING CARE PARTNER 11:48 AM NURSING CARE PARTNER Janusz Govea M.B.B.S. LAB BLOOD ADD-ON Performing Organization Address City/State/[facility] Code Phon e Number [facility] - [address] [place] [address] 05 [place] [address] [facility] [address] Potassium (05/25/2020 11:15 AM NURSING CARE PARTNER) athologist Signature Potassium, S 4.9 3.6 - 5.2 05/25/2020 DTL mmol/L 12:03 PM NURSING CARE PARTNER Specimen Anatomical Collection Method Collection Time Receive d Time (Source) Location / / Volume Laterality Blood (Blood, 05/25/2020 11:15 05/25/2020 Venous) AM NURSING CARE PARTNER 11:48 AM NURSING CARE PARTNER Nasjonathan Mcdonaldgat M.B.B.S. LAB BLOOD ADD-ON Performing Organization Address City/State/ZIP Code Phon e Number [facility] - [address] [place], [place] [address] [place], [place] [id number] [facility] 200 [facility] Sodium (05/25/2020 11:15 AM NURSING CARE PARTNER) P athologist Signature Sodium, S 144 135 - 145 05/25/2020 DTL mmol/L 12:03 PM NURSING CARE PARTNER Specimen Anatomical Collection Method Collection Time Receive d Time (Source) Location / / Volume Laterality Blood (Blood, 05/25/2020 11:15 05/25/2020 Venous) AM NURSING CARE PARTNER 11:48 AM NURSING CARE PARTNER Janusz ArringtonB.S. LAB BLOOD ADD-ON Performing Organization Address City/[facility] Phon e Number [facility] - [address] (ABNORMAL) Morphology Evaluation (Special Smear) (05/25/2020 11:14 AM NURSING CARE PARTNER) Analysis Performed At Patho logist Time Signature Neutrophilic Segs 82 (H) 50 - 75 % 05/25/2020 DHPM and Bands 12:56 PM NURSING CARE PARTNER Lymphocytes 10 (L) 18 - 42 % 05/25/2020 DHPM 12:56 PM NURSING CARE PARTNER Eosinophils 1 1 - 3 % 05/25/2020 DHPM 12:56 PM NURSING CARE PARTNER Basophils 1 0 - 2 % 05/25/2020 PM 12:56 PM NURSING CARE PARTNER Myelocytes 6 (H) <0.5 % 05/25/2020 DHPM 12:56 PM NURSING CARE PARTNER Nucleated RBC 5 /100 WBC 05/25/2020 DHPM 12:56 PM NURSING CARE PARTNER Manual Absolute 2.71 1.56 - 05/25/2020 DHPM Neutrophil Count 6.45 12:56 PM NURSING CARE PARTNER x10(9)/L Comment: ----ADDITIONAL INFORMATION---- The manual absolute neutrophil count is derived from a manual differential count and therefore is not exactly comparable to the automated absolute halie trophil count. Specimen Anatomical Collection Method Collection Time Receive d Time (Source) Location / / Volume Laterality Blood 05/25/2020 11:14 05/25/2020 AM NURSING CARE PARTNER 11:41 AM NURSING CARE PARTNER Janusz ArringtonB.S. LAB BLOOD ADD-ON Performing Organization Address City/[facility] Phon e Number [facility] - [address] [place] [address] [facility] [address] (ABNORMAL) CBC with Differential, Blood (05/25/2020 11:14 AM NURSING CARE PARTNER) [facility] gist Method Time Signature Hemoglobin 6.6 (L) 11.6 - 05/25/2020 DTL 15.0 g/dL 11:53 AM NURSING CARE PARTNER Hematocrit 23.3 (L) 35.5 - 05/25/2020 DTL 44.9 % 11:53 AM NURSING CARE PARTNER Erythrocytes 2.51 (L) 3.92 - 05/25/2020 DTL 5.13 11:53 AM NURSING CARE PARTNER x10(12)/L MCV 92.8 78.2 - 05/25/2020 DTL 97.9 fL 11:53 AM NURSING CARE PARTNER RBC Distrib Width 28.9 (H) 12.2 - 05/25/2020 DTL 16.1 % 12:56 PM NURSING CARE PARTNER Platelet Count 92 (L) 157 - 371 05/25/2020 DTL x10(9)/L 12:56 PM NURSING CARE PARTNER Comment: Large platelets - count approxi mate. Leukocytes 3.3 (L) 3.4 - 9.6 x10(9)/L 05/25/2020 12:56 PM NURSING CARE PARTNER DTL Comment: Results confirmed by smear. Neutrophils SeeComment 1.56 - 6.45 x10(9)/L 05/25/2020 12:56 PM NURSING CARE PARTNER DTL Comment: Auto-diff results not valid. Se e manual differential. Specimen Anatomical Collection Method Collection Time Receive d Time (Source) Location / / Volume Laterality Blood (Blood, 05/25/2020 11:14 05/25/2020 Venous) AM NURSING CARE PARTNER 11:41 AM NURSING CARE PARTNER Janusz Ardon LAB BLOOD ADD-ON Performing Organization Address City/State/ZIP Code Phon e Number [facility] - [address] [place], [place] [address] [facility] [place] [address] [facility] [address] documented in this encounter Visit Diagnoses Diagnosis Myelofibrosis (HCC) documented in this encounter
--- OUTSIDE RECORDS SUMMARY | 2022-05-02 12:38 | XMS_ITS | Encounter Summary ---
:1970 Author Organization [facility] Address [address] [place] [address] Care Team Providers Name Role Phone Unavailable Primary Care Provider Unavailable Encounter Details Date Type Department Care Team Description 05/25/2020 [facility]ation [facility] [facility] [address] [place] [phone] [place], [place] [phone] Social History Tobacco Use Types Packs/Day Years Used Date Smoking Tobacco: Former Smokeless Tobacco: Never Sex Assigned at Date Recorded Female 07/24/2021 11:03 AM 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
--- OUTSIDE RECORDS SUMMARY | 2022-05-02 12:38 | XMS_ITS | Encounter Summary ---
:1970 Author Organization [facility] Address [address] [place] [id number] Care Team Providers Name Role Phone Unavailable Primary Care Provider Unavailable Encounter Details Date Type Department Care Team Description 06/04/2020 Orders Only Division of Hematology Janusz Govea M yelofibrosis (HCC) in [facility] M.B.B.S. (Primary Dx) [address] [id number] [phone] Social History Tobacco Use Types Packs/Day Years Used Date Smoking Tobacco: Former Smokeless Tobacco: Never Sex Assigned at Date Recorded Female 07/24/2021 11:03 AM HUMAN SERVICES SUPERVISOR documented as of this encounter Plan of Treatment Not on filedocumented as of this encounter Results (ABNORMAL) Protein, Total (06/27/2020 8:00 AM HUMAN SERVICES SUPERVISOR) P athologist Signature Protein, 6.0 (L) 6.3 - 7.9 06/27/2020 DTL Total, S g/dL 9:12 AM HUMAN SERVICES SUPERVISOR Specimen Anatomical Collection Method Collection Time Receive d Time (Source) Location / / Volume Laterality Blood (Blood, 06/27/2020 8:00 AM 06/27/20 20 8:19 Venous) HUMAN SERVICES SUPERVISOR AM HUMAN SERVICES SUPERVISOR Janusz HayesBZahraaB.SZahraa LAB BLOOD ADD-ON Performing Organization Address City/State/ZIP Code Phon e Number [facility] - 200 [place], [place] [address] [address] [place] [address] [facility] [address] [facility] Albumin (06/27/2020 8:00 AM HUMAN SERVICES SUPERVISOR) P athologist Signature Albumin, S 4.2 3.5 - 5.0 06/27/2020 DTL g/dL 9:12 AM HUMAN SERVICES SUPERVISOR Specimen Anatomical Collection Method Collection Time Receive d Time (Source) Location / / Volume Laterality Blood (Blood, 06/27/2020 8:00 AM 06/27/20 8:19 Venous) HUMAN SERVICES SUPERVISOR AM HUMAN SERVICES SUPERVISOR Nasjonathan Mcdonaldgat M.B.B.S. LAB BLOOD ADD-ON Performing Organization Address City/State/ZIP Code Phon e Number [facility] - [address] [address] [facility] [address] [facility] Glucose, Random (06/27/2020 8:00 AM HUMAN SERVICES SUPERVISOR) athologist Signature Glucose, S 98 70 - 140 06/27/2020 DTL mg/dL 9:12 AM HUMAN SERVICES SUPERVISOR Specimen Anatomical Collection Method Collection Time Receive d Time (Source) Location / / Volume Laterality Blood (Blood, 06/27/2020 8:00 AM 06/27/20 8:19 Venous) HUMAN SERVICES SUPERVISOR AM HUMAN SERVICES SUPERVISOR Naseema Gangat M.B.B.S. LAB BLOOD TROPONIN Performing Organization Address City/[facility]/ZIP Code Phon e Number [facility] - [address] [address] [facility] [address] [facility] Uric Acid (06/27/2020 8:00 AM HUMAN SERVICES SUPERVISOR) athologist Signature Uric Acid, S 3.9 2.7 - 6.1 06/27/2020 DTL mg/dL 9:12 AM HUMAN SERVICES SUPERVISOR Specimen Anatomical Collection Method Collection Time Receive d Time (Source) Location / / Volume Laterality Blood (Blood, 06/27/2020 8:00 AM 06/27/20 8:19 Venous) HUMAN SERVICES SUPERVISOR AM HUMAN SERVICES SUPERVISOR Nasbaltazarma Harrygat M.B.B.S. LAB BLOOD ADD-ON Performing Organization Address City/State/ZIP Code Phon e Number [facility] - [id number] [place] [address] Creatinine with Estimated GFR (06/27/2020 8:00 AM HUMAN SERVICES SUPERVISOR) athologist Signature Creatinine 0.97 0.59 - 06/27/2020 DTL 1.04 mg/dL 9:12 AM HUMAN SERVICES SUPERVISOR eGFR-Non 67 >=60 06/27/2020 DT Black/ mL/min/BSA 9:12 AM HUMAN SERVICES SUPERVISOR Nigerian Comment: ----ADDITIONAL INFORMATION---- Estimated GFR calculated using the 2009 CKD_EPI creatinine equation. eGFR-Black/ 78 >=60 mL/min/BSA 2019 9:12 AM HUMAN SERVICES SUPERVISOR DTL Comment: ----ADDITIONAL INFORMATION---- Estimated GFR calculated using the 2009 CKD_EPI creatinine equation. Specimen Anatomical Collection Method Collection Time Receive d Time (Source) Location / / Volume Laterality Blood (Blood, 06/27/2020 8:00 AM 06/27/20 8:19 Venous) HUMAN SERVICES SUPERVISOR AM HUMAN SERVICES SUPERVISOR Janusz ArringtonB.S. LAB BLOOD ADD-ON Performing Organization Address City/State/ZIP Code Phon e Number [facility] - [id number] [place] [address] (ABNORMAL) BUN (Blood Urea Nitrogen) (06/27/2020 8:00 AM HUMAN SERVICES SUPERVISOR) athologist [facility] BUN (Blood Urea 25 (H) 6 - 21 06/27/2020 DT Nitrogen), S mg/dL 9:12 AM HUMAN SERVICES SUPERVISOR Specimen Anatomical Collection Method Collection Time Receive d Time (Source) Location / / Volume Laterality Blood (Blood, 06/27/2020 8:00 AM 06/27/20 20 8:19 Venous) HUMAN SERVICES SUPERVISOR AM HUMAN SERVICES SUPERVISOR Janusz ArringtonB.S. LAB BLOOD ADD-ON Performing Organization Address City/State/[facility] Phon e Number [facility] - [id number] [place] [address] Bilirubin, Total (06/27/2020 8:00 AM HUMAN SERVICES SUPERVISOR) athologist Signature Bilirubin, 0.5 <=1.2 mg/dL 06/27/2020 DTL Total, S 9:12 AM HUMAN SERVICES SUPERVISOR Specimen Anatomical Collection Method Collection Time Receive d Time (Source) Location / / Volume Laterality Blood (Blood, 06/27/2020 8:00 AM 06/27/20 20 8:19 Venous) HUMAN SERVICES SUPERVISOR AM HUMAN SERVICES SUPERVISOR Naseema Gangat M.B.B.S. LAB BLOOD ADD-ON Performing Organization Address City/State/ZIP Code Phon e Number [facility] - [address] Calcium, Total (06/27/2020 8:00 AM HUMAN SERVICES SUPERVISOR) athologist Signature Calcium, Total, 8.9 8.6 - 10.0 06/27/2020 DTL S mg/dL 9:12 AM HUMAN SERVICES SUPERVISOR Specimen Anatomical Collection Method Collection Time Receive d Time (Source) Location / / Volume Laterality Blood (Blood, 06/27/2020 8:00 AM 06/27/20 20 8:19 Venous) HUMAN SERVICES SUPERVISOR AM HUMAN SERVICES SUPERVISOR Naseema Gangat M.B.B.S. LAB BLOOD ADD-ON Performing Organization Address City/State/ZIP Code Phon e Number [facility] - [address] Chloride (06/27/2020 8:00 AM HUMAN SERVICES SUPERVISOR) athologist Signature Chloride, S 106 98 - 107 06/27/2020 DTL mmol/L 9:12 AM HUMAN SERVICES SUPERVISOR Specimen Anatomical Collection Method Collection Time Receive d Time (Source) Location / / Volume Laterality Blood (Blood, 06/27/2020 8:00 AM 06/27/20 8:19 Venous) HUMAN SERVICES SUPERVISOR AM HUMAN SERVICES SUPERVISOR Naseema Gangat M.B.B.S. LAB BLOOD ADD-ON Performing Organization Address City/State/ZIP Code Phon e Number [facility] - [address] [place], [place] [address] [place] [address] [facility] [address] Magnesium (06/27/2020 8:00 AM HUMAN SERVICES SUPERVISOR) athologist Signature Magnesium, S 2.0 1.7 - 2.3 06/27/2020 DTL mg/dL 9:12 AM HUMAN SERVICES SUPERVISOR Specimen Anatomical Collection Method Collection Time Receive d Time (Source) Location / / Volume Laterality Blood (Blood, 06/27/2020 8:00 AM 06/27/20 20 8:19 Venous) HUMAN SERVICES SUPERVISOR AM HUMAN SERVICES SUPERVISOR Naseema Gangat M.B.B.S. LAB BLOOD ADD-ON Performing Organization Address City/State/ZIP Code Phon e Number [facility] - [address] Potassium (06/27/2020 8:00 AM HUMAN SERVICES SUPERVISOR) athologist Signature Potassium, S 4.6 3.6 - 5.2 06/27/2020 DTL mmol/L 9:12 AM HUMAN SERVICES SUPERVISOR Specimen Anatomical Collection Method Collection Time Receive d Time (Source) Location / / Volume Laterality Blood (Blood, 06/27/2020 8:00 AM 06/27/20 20 8:19 Venous) HUMAN SERVICES SUPERVISOR AM HUMAN SERVICES SUPERVISOR Naseema Gangat M.B.B.S. LAB BLOOD ADD-ON Performing Organization Address City/[facility]/ZIP Code Phon e Number [facility] - [address] Sodium (06/27/2020 8:00 AM HUMAN SERVICES SUPERVISOR) athologist Signature Sodium, S 142 135 - 145 06/27/2020 9:12 DTL mmol/L AM HUMAN SERVICES SUPERVISOR Specimen Anatomical Collection Method Collection Time Receive d Time (Source) Location / / Volume Laterality Blood (Blood, 06/27/2020 8:00 AM 06/27/20 20 8:19 Venous) HUMAN SERVICES SUPERVISOR AM HUMAN SERVICES SUPERVISOR Naseema Gangat M.B.B.S. LAB BLOOD ADD-ON Performing Organization Address City/State/ZIP Code Phon e Number [facility] - [address] [place], [place] [address] [place] [id number] [place] [address] Alkaline Phosphatase (06/27/2020 8:00 AM HUMAN SERVICES SUPERVISOR) P athologist Signature Alkaline 42 35 - 104 06/27/2020 DTL Phosphatase, S U/L 9:12 AM HUMAN SERVICES SUPERVISOR Specimen Anatomical Collection Method Collection Time Receive d Time (Source) Location / / Volume Laterality Blood (Blood, 06/27/2020 8:00 AM 06/27/20 8:19 Venous) HUMAN SERVICES SUPERVISOR AM HUMAN SERVICES SUPERVISOR Nasjonathan Govea M.B.B.S. LAB BLOOD ADD-ON Performing Organization Address City/State/ZIP Code Phon e Number [facility] - [address] [place], [place] [address] [facility] [place] [address] [facility] [address] AST (Aspartate Aminotransferase) (06/27/2020 8:00 AM HUMAN SERVICES SUPERVISOR) [facility] gist Method Time Signature Aspartate 26 8 - 43 06/27/2020 DTL Aminotransferase U/L 9:12 AM HUMAN SERVICES SUPERVISOR (AST), S Specimen Anatomical Collection Method Collection Time Receive d Time (Source) Location / / Volume Laterality Blood (Blood, 06/27/2020 8:00 AM 06/27/20 20 8:19 Venous) HUMAN SERVICES SUPERVISOR AM HUMAN SERVICES SUPERVISOR Nasjonathan Mcdonaldgat M.B.B.S. LAB BLOOD ADD-ON Performing Organization Address City/State/ZIP Code Phon e Number [facility] - [address] [place], [place] [address] [facility] [place] [address] [facility] [address] ALT (Alanine Aminotransferase) (06/27/2020 8:00 AM HUMAN SERVICES SUPERVISOR) [facility] gist Method Time Signature Alanine 16 7 - 45 06/27/2020 DTL Aminotransferase U/L 9:12 AM HUMAN SERVICES SUPERVISOR (ALT), S Specimen Anatomical Collection Method Collection Time Receive d Time (Source) Location / / Volume Laterality Blood (Blood, 06/27/2020 8:00 AM 06/27/20 20 8:19 Venous) HUMAN SERVICES SUPERVISOR AM HUMAN SERVICES SUPERVISOR Naseewilman Gangat M.B.B.S. LAB BLOOD ADD-ON Performing Organization Address City/State/ZIP Code Phon e Number [facility] - [address] [place], [place] [address] [facility] [place] [address] [facility] [address] (ABNORMAL) CBC with Differential, Blood (06/27/2020 8:00 AM HUMAN SERVICES SUPERVISOR) Patholo gist Method Time Signature Hemoglobin 7.4 (L) 11.6 - 06/27/2020 DTL 15.0 g/dL 8:42 AM HUMAN SERVICES SUPERVISOR Hematocrit 24.8 (L) 35.5 - 06/27/2020 DTL 44.9 % 8:42 AM HUMAN SERVICES SUPERVISOR Erythrocytes 2.67 (L) 3.92 - 06/27/2020 DTL 5.13 8:42 AM HUMAN SERVICES SUPERVISOR x10(12)/L MCV 92.9 78.2 - 06/27/2020 DTL 97.9 fL 8:42 AM HUMAN SERVICES SUPERVISOR RBC Distrib 24.8 (H) 12.2 - 06/27/2020 DTL Width 16.1 % 8:42 AM HUMAN SERVICES SUPERVISOR Platelet Count 115 (L) 157 - 371 06/27/2020 DTL x10(9)/L 8:42 AM HUMAN SERVICES SUPERVISOR Leukocytes 3.2 (L) 3.4 - 9.6 06/27/2020 DTL x10(9)/L 9:48 AM HUMAN SERVICES SUPERVISOR Neutrophils SeeComment 1.56 - 06/27/2020 DTL 6.45 9:48 AM HUMAN SERVICES SUPERVISOR x10(9)/L Comment: Auto-diff results not valid. Se e manual differential. Specimen Anatomical Collection Method Collection Time Receive d Time (Source) Location / / Volume Laterality Blood (Blood, 06/27/2020 8:00 AM 06/27/20 8:27 Venous) HUMAN SERVICES SUPERVISOR AM HUMAN SERVICES SUPERVISOR Janusz Ardon LAB BLOOD ADD-ON Performing Organization Address City/State/ZIP Code Phon e Number [facility] - [address] [place], [place] [address] [facility] [address] [facility] 200 [facility] (ABNORMAL) Protein, Total (06/20/2020 8:08 AM HUMAN SERVICES SUPERVISOR) P athologist Signature Protein, 6.1 (L) 6.3 - 7.9 06/20/2020 DTL Total, S g/dL 9:56 AM HUMAN SERVICES SUPERVISOR Specimen Anatomical Collection Method Collection Time Receive d Time (Source) Location / / Volume Laterality Blood (Blood, 06/20/2020 8:08 AM 06/20/20 8:56 Venous) HUMAN SERVICES SUPERVISOR AM HUMAN SERVICES SUPERVISOR Janusz ArringtonB.S. LAB BLOOD ADD-ON Performing Organization Address City/[facility]/ZIP [facility] Phon e Number [facility] - [address] Albumin (06/20/2020 8:08 AM HUMAN SERVICES SUPERVISOR) P athologist Signature Albumin, S 4.2 3.5 - 5.0 06/20/2020 DTL g/dL 9:56 AM HUMAN SERVICES SUPERVISOR Specimen Anatomical Collection Method Collection Time Receive d Time (Source) Location / / Volume Laterality Blood (Blood, 06/20/2020 8:08 AM 06/20/20 8:56 Venous) HUMAN SERVICES SUPERVISOR AM HUMAN SERVICES SUPERVISOR Janusz ArringtonB.S. LAB BLOOD ADD-ON Performing Organization Address City/[facility] Phon e Number [facility] - [address] Glucose, Random (06/20/2020 8:08 AM HUMAN SERVICES SUPERVISOR) athologist Signature Glucose, S 140 70 - 140 06/20/2020 DTL mg/dL 9:56 AM HUMAN SERVICES SUPERVISOR Specimen Anatomical Collection Method Collection Time Receive d Time (Source) Location / / Volume Laterality Blood (Blood, 06/20/2020 8:08 AM 06/20/20 8:56 Venous) HUMAN SERVICES SUPERVISOR AM HUMAN SERVICES SUPERVISOR Janusz ArringtonB.S. LAB BLOOD TROPONIN Performing Organization Address City/[facility]/ZIP Code Phon e Number [facility] - [address] [place], [place] [address] [place] [address] Uric Acid (06/20/2020 8:08 AM HUMAN SERVICES SUPERVISOR) P athologist Signature Uric Acid, S 4.2 2.7 - 6.1 06/20/2020 DTL mg/dL 9:56 AM HUMAN SERVICES SUPERVISOR Specimen Anatomical Collection Method Collection Time Receive d Time (Source) Location / / Volume Laterality Blood (Blood, 06/20/2020 8:08 AM 06/20/20 8:56 Venous) HUMAN SERVICES SUPERVISOR AM HUMAN SERVICES SUPERVISOR Janusz AlexandraSZahraa LAB BLOOD ADD-ON Performing Organization Address City/[facility]/ZIP Code Phon e Number [facility] - [address] [place], [place] [address] [place] [address] [address] (ABNORMAL) Creatinine with Estimated GFR (06/20/2020 8:08 AM HUMAN SERVICES SUPERVISOR) Analysis Performed At Patho logist Time Signature Creatinine 1.07 (H) 0.59 - 06/20/2020 DTL 1.04 mg/dL 9:56 AM HUMAN SERVICES SUPERVISOR eGFR-Non 60 >=60 06/20/2020 DTL Black/ mL/min/BSA 9:56 AM HUMAN SERVICES SUPERVISOR Nigerian Comment: ----ADDITIONAL INFORMATION---- Estimated GFR calculated using the 2009 CKD_EPI creatinine equation. eGFR-Black/ 69 >=60 mL/min/BSA 2019 9:56 AM HUMAN SERVICES SUPERVISOR DTL Comment: ----ADDITIONAL INFORMATION---- Estimated GFR calculated using the 2009 CKD_EPI creatinine equation. Specimen Anatomical Collection Method Collection Time Receive d Time (Source) Location / / Volume Laterality Blood (Blood, 06/20/2020 8:08 AM 06/20/20 8:56 Venous) HUMAN SERVICES SUPERVISOR AM HUMAN SERVICES SUPERVISOR Janusz AlexandraSZahraa LAB BLOOD ADD-ON Performing Organization Address City/[facility]/ZIP Code Phon e Number [facility] - [address] [place], [place] [address] [facility] [place] [address] [address] (ABNORMAL) BUN (Blood Urea Nitrogen) (06/20/2020 8:08 AM HUMAN SERVICES SUPERVISOR) P athologist Signature BUN (Blood Urea 25 (H) 6 - 21 06/20/2020 DTL Nitrogen), S mg/dL 9:56 AM HUMAN SERVICES SUPERVISOR Specimen Anatomical Collection Method Collection Time Receive d Time (Source) Location / / Volume Laterality Blood (Blood, 06/20/2020 8:08 AM 06/20/20 8:56 Venous) HUMAN SERVICES SUPERVISOR AM HUMAN SERVICES SUPERVISOR Janusz AlexandraSZahraa LAB BLOOD ADD-ON Performing Organization Address City/[facility]/ZIP Code Phon e Number [facility] - [address] [place], [place] [address] [place] [address] Bilirubin, Total (06/20/2020 8:08 AM HUMAN SERVICES SUPERVISOR) athologist Signature Bilirubin, 0.5 <=1.2 mg/dL 06/20/2020 DTL Total, S 9:56 AM HUMAN SERVICES SUPERVISOR Specimen Anatomical Collection Method Collection Time Receive d Time (Source) Location / / Volume Laterality Blood (Blood, 06/20/2020 8:08 AM 06/20/20 8:56 Venous) HUMAN SERVICES SUPERVISOR AM HUMAN SERVICES SUPERVISOR Naseema Gangat M.B.B.S. LAB BLOOD ADD-ON Performing Organization Address City/[facility]/ZIP Code Phon e Number [facility] - [address] [place], [place] [address] [place] [id number] [place] [address] Calcium, Total (06/20/2020 8:08 AM HUMAN SERVICES SUPERVISOR) athologist Signature Calcium, Total, 8.7 8.6 - 10.0 06/20/2020 DTL S mg/dL 9:56 AM HUMAN SERVICES SUPERVISOR Specimen Anatomical Collection Method Collection Time Receive d Time (Source) Location / / Volume Laterality Blood (Blood, 06/20/2020 8:08 AM 06/20/20 20 8:56 Venous) HUMAN SERVICES SUPERVISOR AM HUMAN SERVICES SUPERVISOR Naseema Gangat M.B.B.S. LAB BLOOD ADD-ON Performing Organization Address City/State/ZIP Code Phon e Number [facility] - [address] [place], [place] [address] [place] [address] Chloride (06/20/2020 8:08 AM HUMAN SERVICES SUPERVISOR) athologist Signature Chloride, S 107 98 - 107 06/20/2020 DTL mmol/L 9:56 AM HUMAN SERVICES SUPERVISOR Specimen Anatomical Collection Method Collection Time Receive d Time (Source) Location / / Volume Laterality Blood (Blood, 06/20/2020 8:08 AM 06/20/20 20 8:56 Venous) HUMAN SERVICES SUPERVISOR AM HUMAN SERVICES SUPERVISOR Naseema Gangat M.B.B.S. LAB BLOOD ADD-ON Performing Organization Address City/State/ZIP Code Phon e Number [facility] - [address] [place], [place] [address] [place] [address] Magnesium (06/20/2020 8:08 AM HUMAN SERVICES SUPERVISOR) P athologist Signature Magnesium, S 2.0 1.7 - 2.3 06/20/2020 DTL mg/dL 9:56 AM HUMAN SERVICES SUPERVISOR Specimen Anatomical Collection Method Collection Time Receive d Time (Source) Location / / Volume Laterality Blood (Blood, 06/20/2020 8:08 AM 06/20/20 20 8:56 Venous) HUMAN SERVICES SUPERVISOR AM HUMAN SERVICES SUPERVISOR Janusz Holt.S. LAB BLOOD ADD-ON Performing Organization Address City/[facility]/ZIP Code Phon e Number [facility] - [address] [place], [place] [address] [place] [address] [place] [address] [address] [facility] Potassium (06/20/2020 8:08 AM HUMAN SERVICES SUPERVISOR) athologist Signature Potassium, S 4.5 3.6 - 5.2 06/20/2020 DTL mmol/L 9:56 AM HUMAN SERVICES SUPERVISOR Specimen Anatomical Collection Method Collection Time Receive d Time (Source) Location / / Volume Laterality Blood (Blood, 06/20/2020 8:08 AM 06/20/20 20 8:56 Venous) HUMAN SERVICES SUPERVISOR AM HUMAN SERVICES SUPERVISOR Janusz Holt.S. LAB BLOOD ADD-ON Performing Organization Address City/State/ZIP Code Phon e Number [facility] - [address] [place], [place] [address] [place] [address] Sodium (06/20/2020 8:08 AM HUMAN SERVICES SUPERVISOR) P athologist Signature Sodium, S 140 135 - 145 06/20/2020 9:56 DTL mmol/L AM HUMAN SERVICES SUPERVISOR Specimen Anatomical Collection Method Collection Time Receive d Time (Source) Location / / Volume Laterality Blood (Blood, 06/20/2020 8:08 AM 06/20/20 20 8:56 Venous) HUMAN SERVICES SUPERVISOR AM HUMAN SERVICES SUPERVISOR Janusz ArringtonB.S. LAB BLOOD ADD-ON Performing Organization Address City/[facility]/ZIP Code Phon e Number [facility] - [address] [place], [place] [address] Alkaline Phosphatase (06/20/2020 8:08 AM HUMAN SERVICES SUPERVISOR) P athologist Signature Alkaline 38 35 - 104 06/20/2020 DTL Phosphatase, S U/L 9:56 AM HUMAN SERVICES SUPERVISOR Specimen Anatomical Collection Method Collection Time Receive d Time (Source) Location / / Volume Laterality Blood (Blood, 06/20/2020 8:08 AM 06/20/20 8:56 Venous) HUMAN SERVICES SUPERVISOR AM HUMAN SERVICES SUPERVISOR Janusz AlexandraSZahraa LAB BLOOD ADD-ON Performing Organization Address City/[facility]/ZIP Code Phon e Number [facility] - [address] [place], [place] [address] [place] [address] AST (Aspartate Aminotransferase) (06/20/2020 8:08 AM HUMAN SERVICES SUPERVISOR) [facility] gist Method Time Signature Aspartate 25 8 - 43 06/20/2020 DTL Aminotransferase U/L 9:56 AM HUMAN SERVICES SUPERVISOR (AST), S Specimen Anatomical Collection Method Collection Time Receive d Time (Source) Location / / Volume Laterality Blood (Blood, 06/20/2020 8:08 AM 06/20/20 8:56 Venous) HUMAN SERVICES SUPERVISOR AM HUMAN SERVICES SUPERVISOR Janusz AlexandraS. LAB BLOOD ADD-ON Performing Organization Address City/[facility] Phon e Number [facility] - [address] [place], [place] [address] [place] [address] ALT (Alanine Aminotransferase) (06/20/2020 8:08 AM HUMAN SERVICES SUPERVISOR) Patholo gist Method Time Signature Alanine 17 7 - 45 06/20/2020 DTL Aminotransferase U/L 9:56 AM HUMAN SERVICES SUPERVISOR (ALT), S Specimen Anatomical Collection Method Collection Time Receive d Time (Source) Location / / Volume Laterality Blood (Blood, 06/20/2020 8:08 AM 06/20/20 20 8:56 Venous) HUMAN SERVICES SUPERVISOR AM HUMAN SERVICES SUPERVISOR Janusz AlexandraSZahraa LAB BLOOD ADD-ON Performing Organization Address City/State/[facility] Phon e Number [facility] - [address] (ABNORMAL) CBC with Differential, Blood (06/20/2020 8:08 AM HUMAN SERVICES SUPERVISOR) Patholo gist Method Time Signature Hemoglobin 6.5 (L) 11.6 - 06/20/2020 DTL 15.0 g/dL 8:52 AM HUMAN SERVICES SUPERVISOR Hematocrit 21.6 (L) 35.5 - 06/20/2020 DTL 44.9 % 8:52 AM HUMAN SERVICES SUPERVISOR Erythrocytes 2.37 (L) 3.92 - 06/20/2020 DTL 5.13 8:52 AM HUMAN SERVICES SUPERVISOR x10(12)/L MCV 91.1 78.2 - 06/20/2020 DTL 97.9 fL 8:52 AM HUMAN SERVICES SUPERVISOR RBC Distrib Width 26.9 (H) 12.2 - 06/20/2020 DTL 16.1 % 8:52 AM HUMAN SERVICES SUPERVISOR Platelet Count 121 (L) 157 - 371 06/20/2020 DTL x10(9)/L 8:52 AM HUMAN SERVICES SUPERVISOR Leukocytes 2.6 (L) 3.4 - 9.6 06/20/2020 DTL x10(9)/L 9:42 AM HUMAN SERVICES SUPERVISOR Comment: Results confirmed by smear. Neutrophils SeeComment 1.56 - 6.45 x10(9)/L 06/20/2020 9:42 AM HUMAN SERVICES SUPERVISOR DTL Comment: Auto-diff results not valid. Se e manual differential. Specimen Anatomical Collection Method Collection Time Receive d Time (Source) Location / / Volume Laterality Blood (Blood, 06/20/2020 8:08 AM 06/20/20 20 8:37 Venous) HUMAN SERVICES SUPERVISOR AM HUMAN SERVICES SUPERVISOR Janusz Ardon LAB BLOOD ADD-ON Performing Organization Address City/[facility] [facility] Phon e Number [facility] - [address] [place] [address] (ABNORMAL) Protein, Total (06/13/2020 8:41 AM HUMAN SERVICES SUPERVISOR) P athologist Signature Protein, 5.9 (L) 6.3 - 7.9 06/13/2020 DTL Total, S g/dL 9:44 AM HUMAN SERVICES SUPERVISOR Specimen Anatomical Collection Method Collection Time Receive d Time (Source) Location / / Volume Laterality Blood (Blood, 06/13/2020 8:41 AM 06/13/20 9:26 Venous) HUMAN SERVICES SUPERVISOR AM HUMAN SERVICES SUPERVISOR Naseema Gangat M.B.B.S. LAB BLOOD ADD-ON Performing Organization Address City/State/ZIP Code Phon e Number [facility] - [address] [facility] Albumin (06/13/2020 8:41 AM HUMAN SERVICES SUPERVISOR) athologist Signature Albumin, S 4.3 3.5 - 5.0 06/13/2020 DTL g/dL 9:44 AM HUMAN SERVICES SUPERVISOR Specimen Anatomical Collection Method Collection Time Receive d Time (Source) Location / / Volume Laterality Blood (Blood, 06/13/2020 8:41 AM 06/13/20 9:26 Venous) HUMAN SERVICES SUPERVISOR AM HUMAN SERVICES SUPERVISOR Naseema Gangat M.B.B.S. LAB BLOOD ADD-ON Performing Organization Address City/[facility]/ZIP Code Phon e Number [facility] - [address] [place] [address] [address] [facility] Glucose, Random (06/13/2020 8:41 AM HUMAN SERVICES SUPERVISOR) athologist Signature Glucose, S 81 70 - 140 06/13/2020 DTL mg/dL 9:44 AM HUMAN SERVICES SUPERVISOR Specimen Anatomical Collection Method Collection Time Receive d Time (Source) Location / / Volume Laterality Blood (Blood, 06/13/2020 8:41 AM 06/13/20 9:26 Venous) HUMAN SERVICES SUPERVISOR AM HUMAN SERVICES SUPERVISOR Naseema Gangat M.B.B.S. LAB BLOOD TROPONIN Performing Organization Address City/State/ZIP Code Phon e Number [facility] - [address] [place] [address] [place] [address] Uric Acid (06/13/2020 8:41 AM HUMAN SERVICES SUPERVISOR) P athologist Signature Uric Acid, S 5.6 2.7 - 6.1 06/13/2020 DTL mg/dL 9:44 AM HUMAN SERVICES SUPERVISOR Specimen Anatomical Collection Method Collection Time Receive d Time (Source) Location / / Volume Laterality Blood (Blood, 06/13/2020 8:41 AM 06/13/20 9:26 Venous) HUMAN SERVICES SUPERVISOR AM HUMAN SERVICES SUPERVISOR Janusz AlexandraSZahraa LAB BLOOD ADD-ON Performing Organization Address City/[facility] Phon e Number [facility] - [address] [place] [address] [address] [facility] (ABNORMAL) Creatinine with Estimated GFR (06/13/2020 8:41 AM HUMAN SERVICES SUPERVISOR) Analysis Performed At [facility] Signature Creatinine 1.09 (H) 0.59 - 06/13/2020 DTL 1.04 mg/dL 9:44 AM HUMAN SERVICES SUPERVISOR eGFR-Non 59 (L) >=60 06/13/2020 DTL Black/ mL/min/BSA 9:44 AM HUMAN SERVICES SUPERVISOR Nigerian Comment: ----ADDITIONAL INFORMATION---- Estimated GFR calculated using the 2009 CKD_EPI creatinine equation. eGFR-Black/ 67 >=60 mL/min/BSA 2019 9:44 AM HUMAN SERVICES SUPERVISOR DTL Comment: ----ADDITIONAL INFORMATION---- Estimated GFR calculated using the 2009 CKD_EPI creatinine equation. Specimen Anatomical Collection Method Collection Time Receive d Time (Source) Location / / Volume Laterality Blood (Blood, 06/13/2020 8:41 AM 06/13/20 9:26 Venous) HUMAN SERVICES SUPERVISOR AM HUMAN SERVICES SUPERVISOR Janusz ArringtonB.S. LAB BLOOD ADD-ON Performing Organization Address City/[facility] Phon e Number [facility] - [address] (ABNORMAL) BUN (Blood Urea Nitrogen) (06/13/2020 8:41 AM HUMAN SERVICES SUPERVISOR) P athologist Signature BUN (Blood Urea 25 (H) 6 - 21 06/13/2020 DTL Nitrogen), S mg/dL 9:44 AM HUMAN SERVICES SUPERVISOR Specimen Anatomical Collection Method Collection Time Receive d Time (Source) Location / / Volume Laterality Blood (Blood, 06/13/2020 8:41 AM 06/13/20 9:26 Venous) HUMAN SERVICES SUPERVISOR AM HUMAN SERVICES SUPERVISOR Naseema Gangat M.B.B.S. LAB BLOOD ADD-ON Performing Organization Address City/State/ZIP Code Phon e Number [facility] - [address] [place] [address] [place] [address] Bilirubin, Total (06/13/2020 8:41 AM HUMAN SERVICES SUPERVISOR) P athologist Signature Bilirubin, 0.5 <=1.2 mg/dL 06/13/2020 DT Total, S 9:44 AM HUMAN SERVICES SUPERVISOR Specimen Anatomical Collection Method Collection Time Receive d Time (Source) Location / / Volume Laterality Blood (Blood, 06/13/2020 8:41 AM 06/13/20 9:26 Venous) HUMAN SERVICES SUPERVISOR AM HUMAN SERVICES SUPERVISOR Naseema Gangat M.B.B.S. LAB BLOOD ADD-ON Performing Organization Address City/State/ZIP Code Phon e Number [facility] - [address] Calcium, Total (06/13/2020 8:41 AM HUMAN SERVICES SUPERVISOR) athologist Signature Calcium, Total, 8.8 8.6 - 10.0 06/13/2020 DTL S mg/dL 9:44 AM HUMAN SERVICES SUPERVISOR Specimen Anatomical Collection Method Collection Time Receive d Time (Source) Location / / Volume Laterality Blood (Blood, 06/13/2020 8:41 AM 06/13/20 20 9:26 Venous) HUMAN SERVICES SUPERVISOR AM HUMAN SERVICES SUPERVISOR Naseema Gangat M.B.B.S. LAB BLOOD ADD-ON Performing Organization Address City/State/ZIP [facility] Phon e Number [facility] - [address] [place], [place] [address] [place] [id number] [place] [address] (ABNORMAL) Chloride (06/13/2020 8:41 AM HUMAN SERVICES SUPERVISOR) P athologist Signature Chloride, S 108 (H) 98 - 107 06/13/2020 DTL mmol/L 9:44 AM HUMAN SERVICES SUPERVISOR Specimen Anatomical Collection Method Collection Time Receive d Time (Source) Location / / Volume Laterality Blood (Blood, 06/13/2020 8:41 AM 06/13/20 9:26 Venous) HUMAN SERVICES SUPERVISOR AM HUMAN SERVICES SUPERVISOR Nasjonathan Mcdonaldgat M.B.B.S. LAB BLOOD ADD-ON Performing Organization Address City/State/ZIP Code Phon e Number [facility] - [address] Magnesium (06/13/2020 8:41 AM HUMAN SERVICES SUPERVISOR) athologist Signature Magnesium, S 2.1 1.7 - 2.3 06/13/2020 DTL mg/dL 9:44 AM HUMAN SERVICES SUPERVISOR Specimen Anatomical Collection Method Collection Time Receive d Time (Source) Location / / Volume Laterality Blood (Blood, 06/13/2020 8:41 AM 06/13/20 9:26 Venous) HUMAN SERVICES SUPERVISOR AM HUMAN SERVICES SUPERVISOR Janusz Mcdonaldgat M.B.B.S. LAB BLOOD ADD-ON Performing Organization Address City/State/ZIP Code Phon e Number [facility] - [address] Potassium (06/13/2020 8:41 AM HUMAN SERVICES SUPERVISOR) athologist Signature Potassium, S 5.1 3.6 - 5.2 06/13/2020 DTL mmol/L 9:44 AM HUMAN SERVICES SUPERVISOR Specimen Anatomical Collection Method Collection Time Receive d Time (Source) Location / / Volume Laterality Blood (Blood, 06/13/2020 8:41 AM 06/13/20 9:26 Venous) HUMAN SERVICES SUPERVISOR AM HUMAN SERVICES SUPERVISOR Naseema Gangat M.B.B.S. LAB BLOOD ADD-ON Performing Organization Address City/State/ZIP Code Phon e Number [facility] - [address] [place], [place] [address] [address] [facility] [place], [place] [address] [place] [address] Sodium (06/13/2020 8:41 AM HUMAN SERVICES SUPERVISOR) athologist Signature Sodium, S 142 135 - 145 06/13/2020 9:44 DTL mmol/L AM HUMAN SERVICES SUPERVISOR Specimen Anatomical Collection Method Collection Time Receive d Time (Source) Location / / Volume Laterality Blood (Blood, 06/13/2020 8:41 AM 06/13/20 9:26 Venous) HUMAN SERVICES SUPERVISOR AM HUMAN SERVICES SUPERVISOR Nasjonathan Mcdonaldgat M.B.B.S. LAB BLOOD ADD-ON Performing Organization Address City/[facility]/ZIP Code Phon e Number [facility] - [address] [place] [address] [place] [address] [address] [facility] (ABNORMAL) Alkaline Phosphatase (06/13/2020 8:41 AM HUMAN SERVICES SUPERVISOR) P athologist Signature Alkaline 33 (L) 35 - 104 06/13/2020 DTL Phosphatase, S U/L 9:44 AM HUMAN SERVICES SUPERVISOR Specimen Anatomical Collection Method Collection Time Receive d Time (Source) Location / / Volume Laterality Blood (Blood, 06/13/2020 8:41 AM 06/13/20 9:26 Venous) HUMAN SERVICES SUPERVISOR AM HUMAN SERVICES SUPERVISOR Nasjonathan Mcdonaldgat M.B.B.S. LAB BLOOD ADD-ON Performing Organization Address City/State/ZIP [facility] Phon e Number [facility] - [address] AST (Aspartate Aminotransferase) (06/13/2020 8:41 AM HUMAN SERVICES SUPERVISOR) Patholo gist Method Time Signature Aspartate 25 8 - 43 06/13/2020 DTL Aminotransferase U/L 9:44 AM HUMAN SERVICES SUPERVISOR (AST), S Specimen Anatomical Collection Method Collection Time Receive d Time (Source) Location / / Volume Laterality Blood (Blood, 06/13/2020 8:41 AM 06/13/20 9:26 Venous) HUMAN SERVICES SUPERVISOR AM HUMAN SERVICES SUPERVISOR Naseema Gangat M.B.B.S. LAB BLOOD ADD-ON Performing Organization Address City/State/ZIP Code Phon e Number [facility] - [address] [place], [place] [address] [place] [address] ALT (Alanine Aminotransferase) (06/13/2020 8:41 AM HUMAN SERVICES SUPERVISOR) [facility] [employer] Method Time Signature Alanine 14 7 - 45 06/13/2020 DTL Aminotransferase U/L 9:44 AM HUMAN SERVICES SUPERVISOR (ALT), S Specimen Anatomical Collection Method Collection Time Receive d Time (Source) Location / / Volume Laterality Blood (Blood, 06/13/2020 8:41 AM 06/13/20 9:26 Venous) HUMAN SERVICES SUPERVISOR AM HUMAN SERVICES SUPERVISOR Janusz AlexandraSZahraa LAB BLOOD ADD-ON Performing Organization Address City/State/ZIP Code Phon e Number [facility] - [address] [place], [place] [address] [facility] [place] [address] [facility] [address] (ABNORMAL) CBC with Differential, Blood (06/13/2020 8:41 AM HUMAN SERVICES SUPERVISOR) [facility] [employer] Method Time Signature Hemoglobin 6.5 (L) 11.6 - 06/13/2020 DTL 15.0 g/dL 9:27 AM HUMAN SERVICES SUPERVISOR Hematocrit 22.7 (L) 35.5 - 06/13/2020 DTL 44.9 % 9:27 AM HUMAN SERVICES SUPERVISOR Erythrocytes 2.40 (L) 3.92 - 06/13/2020 DTL 5.13 9:27 AM HUMAN SERVICES SUPERVISOR x10(12)/L MCV 94.6 78.2 - 06/13/2020 DTL 97.9 fL 9:27 AM HUMAN SERVICES SUPERVISOR RBC Distrib Width 27.3 (H) 12.2 - 06/13/2020 DTL 16.1 % 9:27 AM HUMAN SERVICES SUPERVISOR Platelet Count 106 (L) 157 - 371 06/13/2020 DTL x10(9)/L 10:23 AM HUMAN SERVICES SUPERVISOR Leukocytes 2.9 (L) 3.4 - 9.6 06/13/2020 DTL x10(9)/L 10:23 AM HUMAN SERVICES SUPERVISOR Comment: Results confirmed by smear. Neutrophils SeeComment 1.56 - 6.45 x10(9)/L 06/13/2020 10:23 AM HUMAN SERVICES SUPERVISOR DTL Comment: Auto-diff results not valid. Se e manual differential. Specimen Anatomical Collection Method Collection Time Receive d Time (Source) Location / / Volume Laterality Blood (Blood, 06/13/2020 8:41 AM 06/13/20 9:16 Venous) HUMAN SERVICES SUPERVISOR AM HUMAN SERVICES SUPERVISOR Janusz AlexandraS. LAB BLOOD ADD-ON Performing Organization Address City/[facility]/ZIP [facility] Phon e Number [facility] - 200 [place], [place] [address] [place] [address] Test, Qualitative, Urine (06/06/2020 7:51 AM HUMAN SERVICES SUPERVISOR) athologist Signature Negative 06/06/2020 TUNDE Test, U 8:27 AM HUMAN SERVICES SUPERVISOR Specimen Anatomical Collection Method Collection Time Receive d Time (Source) Location / / Volume Laterality Urine (Urine, 06/06/2020 7:51 AM 06/06/20 7:51 Clean Catch) HUMAN SERVICES SUPERVISOR AM HUMAN SERVICES SUPERVISOR Janusz Ardon LAB URINE ORDERABLES Performing Organization Address [facility] Phon e Number [facility] - 200 [place], [place] [address] [place] [address] Protein, Total (06/06/2020 7:20 AM HUMAN SERVICES SUPERVISOR) athologist Signature Protein, Total, 6.3 6.3 - 7.9 06/06/2020 DTL S g/dL 8:35 AM HUMAN SERVICES SUPERVISOR Specimen Anatomical Collection Method Collection Time Receive d Time (Source) Location / / Volume Laterality Blood (Blood, 06/06/2020 7:20 AM 06/06/20 8:14 Venous) HUMAN SERVICES SUPERVISOR AM HUMAN SERVICES SUPERVISOR Janusz Ardon LAB BLOOD ADD-ON Performing Organization Address City/[facility] Phon e Number [facility] - 200 [place], [place] [address] [place] [address] Albumin (06/06/2020 7:20 AM HUMAN SERVICES SUPERVISOR) athologist Signature Albumin, S 4.5 3.5 - 5.0 06/06/2020 DTL g/dL 8:35 AM HUMAN SERVICES SUPERVISOR Specimen Anatomical Collection Method Collection Time Receive d Time (Source) Location / / Volume Laterality Blood (Blood, 06/06/2020 7:20 AM 06/06/20 8:14 Venous) HUMAN SERVICES SUPERVISOR AM HUMAN SERVICES SUPERVISOR Janusz ArringtonB.S. LAB BLOOD ADD-ON Performing Organization Address City/[facility]/ZIP [facility] Phon e Number [facility] - [address] Glucose, Random (06/06/2020 7:20 AM HUMAN SERVICES SUPERVISOR) P athologist Signature Glucose, S 93 70 - 140 06/06/2020 DTL mg/dL 8:35 AM HUMAN SERVICES SUPERVISOR Specimen Anatomical Collection Method Collection Time Receive d Time (Source) Location / / Volume Laterality Blood (Blood, 06/06/2020 7:20 AM 06/06/20 8:14 Venous) HUMAN SERVICES SUPERVISOR AM HUMAN SERVICES SUPERVISOR Janusz ArringtonB.S. LAB BLOOD TROPONIN Performing Organization Address City/[facility]/ZIP [facility] Phon e Number [facility] - [address] (ABNORMAL) Uric Acid (06/06/2020 7:20 AM HUMAN SERVICES SUPERVISOR) P athologist Signature Uric Acid, S 8.5 (H) 2.7 - 6.1 06/06/2020 DTL mg/dL 8:35 AM HUMAN SERVICES SUPERVISOR Specimen Anatomical Collection Method Collection Time Receive d Time (Source) Location / / Volume Laterality Blood (Blood, 06/06/2020 7:20 AM 06/06/20 20 8:14 Venous) HUMAN SERVICES SUPERVISOR AM HUMAN SERVICES SUPERVISOR Janusz ArringtonB.S. LAB BLOOD ADD-ON Performing Organization Address City/State/ZIP Code Phon e Number [facility] - [address] (ABNORMAL) Creatinine with Estimated GFR (06/06/2020 7:20 AM HUMAN SERVICES SUPERVISOR) Analysis Performed At Patho logist Time Signature Creatinine 1.20 (H) 0.59 - 06/06/2020 DTL 1.04 mg/dL 8:35 AM HUMAN SERVICES SUPERVISOR eGFR-Non 52 (L) >=60 06/06/2020 DTL Black/ mL/min/BSA 8:35 AM HUMAN SERVICES SUPERVISOR Nigerian Comment: ----ADDITIONAL INFORMATION---- Estimated GFR calculated using the 2009 CKD_EPI creatinine equation. eGFR-Black/ 60 >=60 mL/min/BSA 2019 8:35 AM HUMAN SERVICES SUPERVISOR DTL Comment: ----ADDITIONAL INFORMATION---- Estimated GFR calculated using the 2009 CKD_EPI creatinine equation. Specimen Anatomical Collection Method Collection Time Receive d Time (Source) Location / / Volume Laterality Blood (Blood, 06/06/2020 7:20 AM 06/06/20 8:14 Venous) HUMAN SERVICES SUPERVISOR AM HUMAN SERVICES SUPERVISOR Janusz ArringtonB.S. LAB BLOOD ADD-ON Performing Organization Address City/[facility] Phon e Number [facility] - [address] [place] [address] (ABNORMAL) BUN (Blood Urea Nitrogen) (06/06/2020 7:20 AM HUMAN SERVICES SUPERVISOR) athologist Signature BUN (Blood Urea 28 (H) 6 - 21 06/06/2020 DTL Nitrogen), S mg/dL 8:35 AM HUMAN SERVICES SUPERVISOR Specimen Anatomical Collection Method Collection Time Receive d Time (Source) Location / / Volume Laterality Blood (Blood, 06/06/2020 7:20 AM 06/06/20 8:14 Venous) HUMAN SERVICES SUPERVISOR AM HUMAN SERVICES SUPERVISOR Janusz Higgins.B.S. LAB BLOOD ADD-ON Performing Organization Address City/[facility] Phon e Number [facility] - [address] Bilirubin, Total (06/06/2020 7:20 AM HUMAN SERVICES SUPERVISOR) P athologist Signature Bilirubin, 0.7 <=1.2 mg/dL 06/06/2020 DT Total, S 8:35 AM HUMAN SERVICES SUPERVISOR Specimen Anatomical Collection Method Collection Time Receive d Time (Source) Location / / Volume Laterality Blood (Blood, 06/06/2020 7:20 AM 06/06/20 8:14 Venous) HUMAN SERVICES SUPERVISOR AM HUMAN SERVICES SUPERVISOR Janusz ArringtonB.S. LAB BLOOD ADD-ON Performing Organization Address City/State/[facility] Phon e Number [facility] - [id number] [place] [address] 200 [facility] Calcium, Total (06/06/2020 7:20 AM HUMAN SERVICES SUPERVISOR) athologist Signature Calcium, Total, 8.8 8.6 - 10.0 06/06/2020 DTL S mg/dL 8:35 AM HUMAN SERVICES SUPERVISOR Specimen Anatomical Collection Method Collection Time Receive d Time (Source) Location / / Volume Laterality Blood (Blood, 06/06/2020 7:20 AM 06/06/20 20 8:14 Venous) HUMAN SERVICES SUPERVISOR AM HUMAN SERVICES SUPERVISOR Naseema Gangat M.B.B.S. LAB BLOOD ADD-ON Performing Organization Address City/[facility] Phon e Number [facility] - [address] [address] [place] [address] [facility] Chloride (06/06/2020 7:20 AM HUMAN SERVICES SUPERVISOR) athologist Signature Chloride, S 104 98 - 107 06/06/2020 DTL mmol/L 8:35 AM HUMAN SERVICES SUPERVISOR Specimen Anatomical Collection Method Collection Time Receive d Time (Source) Location / / Volume Laterality Blood (Blood, 06/06/2020 7:20 AM 06/06/20 20 8:14 Venous) HUMAN SERVICES SUPERVISOR AM HUMAN SERVICES SUPERVISOR Naseema Gangat M.B.B.S. LAB BLOOD ADD-ON Performing Organization Address City/State/ZIP Code Phon e Number [facility] - [address] Magnesium (06/06/2020 7:20 AM HUMAN SERVICES SUPERVISOR) athologist Signature Magnesium, S 2.3 1.7 - 2.3 06/06/2020 DTL mg/dL 8:35 AM HUMAN SERVICES SUPERVISOR Specimen Anatomical Collection Method Collection Time Receive d Time (Source) Location / / Volume Laterality Blood (Blood, 06/06/2020 7:20 AM 06/06/20 20 8:14 Venous) HUMAN SERVICES SUPERVISOR AM HUMAN SERVICES SUPERVISOR Naseema Gangat M.B.B.S. LAB BLOOD ADD-ON Performing Organization Address City/[facility]/ZIP Code Phon e Number [facility] - [address] Potassium (06/06/2020 7:20 AM HUMAN SERVICES SUPERVISOR) P athologist Signature Potassium, S 5.1 3.6 - 5.2 06/06/2020 DTL mmol/L 8:35 AM HUMAN SERVICES SUPERVISOR Specimen Anatomical Collection Method Collection Time Receive d Time (Source) Location / / Volume Laterality Blood (Blood, 06/06/2020 7:20 AM 06/06/20 8:14 Venous) HUMAN SERVICES SUPERVISOR AM HUMAN SERVICES SUPERVISOR Janusz Holt.S. LAB BLOOD ADD-ON Performing Organization Address City/[facility]/ZIP Code Phon e Number [facility] - [address] Sodium (06/06/2020 7:20 AM HUMAN SERVICES SUPERVISOR) athologist Signature Sodium, S 139 135 - 145 06/06/2020 8:35 DTL mmol/L AM HUMAN SERVICES SUPERVISOR Specimen Anatomical Collection Method Collection Time Receive d Time (Source) Location / / Volume Laterality Blood (Blood, 06/06/2020 7:20 AM 06/06/20 8:14 Venous) HUMAN SERVICES SUPERVISOR AM HUMAN SERVICES SUPERVISOR Janusz Holt.S. LAB BLOOD ADD-ON Performing Organization Address City/[facility]/ZIP Code Phon e Number [facility] - [address] (ABNORMAL) Alkaline Phosphatase (06/06/2020 7:20 AM HUMAN SERVICES SUPERVISOR) P athologist Signature Alkaline 34 (L) 35 - 104 06/06/2020 DTL Phosphatase, S U/L 8:35 AM HUMAN SERVICES SUPERVISOR Specimen Anatomical Collection Method Collection Time Receive d Time (Source) Location / / Volume Laterality Blood (Blood, 06/06/2020 7:20 AM 06/06/20 20 8:14 Venous) HUMAN SERVICES SUPERVISOR AM HUMAN SERVICES SUPERVISOR Janusz ArringtonB.SZahraa LAB BLOOD ADD-ON Performing Organization Address City/[facility]/ZIP [facility] Phon e Number [facility] - 200 [place], [place] [address] [place], [place] [address] [place] [address] AST (Aspartate Aminotransferase) (06/06/2020 7:20 AM HUMAN SERVICES SUPERVISOR) [facility] Method Time Signature Aspartate 29 8 - 43 06/06/2020 DTL Aminotransferase U/L 8:35 AM HUMAN SERVICES SUPERVISOR (AST), S Specimen Anatomical Collection Method Collection Time Receive d Time (Source) Location / / Volume Laterality Blood (Blood, 06/06/2020 7:20 AM 06/06/20 8:14 Venous) HUMAN SERVICES SUPERVISOR AM HUMAN SERVICES SUPERVISOR Janusz AlexandraSZahraa LAB BLOOD ADD-ON Performing Organization Address City/[facility]/ZIP Code Phon e Number [facility] - [address] [place] [address] [address] [facility] [place] [address] ALT (Alanine Aminotransferase) (06/06/2020 7:20 AM HUMAN SERVICES SUPERVISOR) [facility] Method Time Signature Alanine 17 7 - 45 06/06/2020 DTL Aminotransferase U/L 8:35 AM HUMAN SERVICES SUPERVISOR (ALT), S Specimen Anatomical Collection Method Collection Time Receive d Time (Source) Location / / Volume Laterality Blood (Blood, 06/06/2020 7:20 AM 06/06/20 20 8:14 Venous) HUMAN SERVICES SUPERVISOR AM HUMAN SERVICES SUPERVISOR Janusz AlexandraSZahraa LAB BLOOD ADD-ON Performing Organization Address City/State/[facility] Code Phon e Number [facility] - 200 [place], [place] [address] [address] [place], [place] [address] [place] [address] (ABNORMAL) CBC with Differential, Blood (06/06/2020 7:20 AM HUMAN SERVICES SUPERVISOR) [facility] Method Time Signature Hemoglobin 7.3 (L) 11.6 - 06/06/2020 DTL 15.0 g/dL 8:03 AM HUMAN SERVICES SUPERVISOR Hematocrit 25.1 (L) 35.5 - 06/06/2020 DTL 44.9 % 8:03 AM HUMAN SERVICES SUPERVISOR Erythrocytes 2.70 (L) 3.92 - 06/06/2020 DTL 5.13 8:03 AM HUMAN SERVICES SUPERVISOR x10(12)/L MCV 93.0 78.2 - 06/06/2020 DTL 97.9 fL 8:03 AM HUMAN SERVICES SUPERVISOR RBC Distrib Width 27.9 (H) 12.2 - 06/06/2020 DTL 16.1 % 8:03 AM HUMAN SERVICES SUPERVISOR Platelet Count 106 (L) 157 - 371 06/06/2020 DTL x10(9)/L 8:56 AM HUMAN SERVICES SUPERVISOR Leukocytes 2.9 (L) 3.4 - 9.6 06/06/2020 DTL x10(9)/L 9:00 AM HUMAN SERVICES SUPERVISOR Comment: Results confirmed by smear. Neutrophils SeeComment 1.56 - 6.45 x10(9)/L 06/06/2020 9:00 AM HUMAN SERVICES SUPERVISOR DTL Comment: Auto-diff results not valid. Se e manual differential. Specimen Anatomical Collection Method Collection Time Receive d Time (Source) Location / / Volume Laterality Blood (Blood, 06/06/2020 7:20 AM 06/06/20 20 7:54 Venous) HUMAN SERVICES SUPERVISOR AM HUMAN SERVICES SUPERVISOR Janusz Ardon LAB BLOOD ADD-ON Performing Organization Address City/State/ZIP Code Phon e Number [facility] - [address] [place], [place] [address] [facility] [place] [address] Laboratories-[facility] [address] documented in this encounter Visit Diagnoses Diagnosis Myelofibrosis (HCC) - Primary documented in this encounter
--- OUTSIDE RECORDS SUMMARY | 2022-05-02 12:38 | XMS_ITS | Encounter Summary ---
:1970 Author Organization [facility] Address [address] [place] [address] Care Team Providers Name Role Phone Unavailable Primary Care Provider Unavailable Reason for Visit Reason Comments Med Management eConsult for Actuate 1900 Outpatient (Routine) - Closed Specialty Diagnoses / Procedures Referred By Contact Refer red To Contact Pharmacy Diagnoses [facility]CC) [facility] - Investigational (Hem/Onc) eConsult M.B.B.S. [address] [place] [phone] Referral ID Status Reason Start Date Expiration Date Visits Requ ested Visits Authorized [id number] Closed 05/25/2020 05/25/2021 1 1 Encounter Details Date Type Department Care Team Description 05/29/2020 Internal E-Consult Department of Reema Govea ma M.B.B.S. [address] [place] [phone] Myelofibrosis (HCC) Oncology in Radha Reynolds PharmZahraaD., R.Ph. 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 Please memorial counselor Ms. Dobbs to avoid herbal preparations/supplements such [...] were communicated to the referring provider and overnight caregiver via an electronically routed chart. Radha Reynolds Pharm.D., R.Ph. Research Pharmacist W REMOVER documented in this encounter Plan of Treatment Not on filedocumented as of this encounter Visit Diagnoses Diagnosis Myelofibrosis (HCC) documented in this encounter
--- OUTSIDE RECORDS SUMMARY | 2022-05-02 12:38 | XMS_ITS | Encounter Summary ---
:1970 Author Organization [facility] Address [address] [place] [address] Care Team Providers Name Role Phone Unavailable Primary Care Provider Unavailable Reason for Visit Outpatient (Routine) - Closed Specialty Diagnoses / Procedures Referred By Contact Refer red To Contact Diagnoses Myelofibrosis (HCC) Janusz Govea M.B.B.S. [facility] Procedures Biopsy Bone Marrow [address] [place] [address] [phone] Referral ID Status Reason Start Date Expiration Date Visits Requ ested Visits Authorized [id number] Closed 05/22/2020 05/22/2021 1 1 Encounter Details Date Type Department Care Team Description 06/01/2020 Procedure visit Department of Janusz Govea M.B.B.S. [address] [place] [phone] Myelofibrosis (HCC) Infusion Therapy in Kenneth Bridges R.N. [address] [place] [phone] [place], [place] [address] [place] [phone] Social History Tobacco Use Types Packs/Day Years Used Date Smoking Tobacco: Former Smokeless Tobacco: Never Sex Assigned at Date Recorded Female 07/24/2021 11:03 AM NEWSPAPER DISTRIBUTOR SUPERVISOR documented as of this encounter Procedure Notes [...] biopsy. 0221 Bone Marrow Examination pamphlet provided. PAPER DISTRIBUTOR SUPERVISOR documented in this encounter Plan of Treatment Not on filedocumented as of this encounter Procedures Procedure Name Priority Date/Time Associated Diagnosis Comme nts TN DX BONE MARROW BX & Routine 06/01/2020 2:30 Myelofibrosis ( HCC) Results for this ASPIR PM NEWSPAPER DISTRIBUTOR SUPERVISOR procedure are i n the results section. CHROMOSOMES, Routine 06/01/2020 10:30 Results for this HEMATOLOGIC, BM AM NEWSPAPER DISTRIBUTOR SUPERVISOR procedure ar e in the results section. HEMATOPATHOLOGY Routine 06/01/2020 5:59 Results f or this AM NEWSPAPER DISTRIBUTOR SUPERVISOR procedure are i n the results section. NGS FOR MYELOID Routine 05/31/2020 10:30 Results for this NEOPLASMS (NGSHM) AM NEWSPAPER DISTRIBUTOR SUPERVISOR procedure are in the results section. documented in this encounter Results TN DX BONE MARROW BX & ASPIR (06/01/2020 2:30 PM NEWSPAPER DISTRIBUTOR SUPERVISOR) Specimen (Source) Anatomical Location Collection Method / Collectio n Time Received Time / Laterality Volume Bone Marrow Narrative MMODAL - 06/01/2020 2:30 PM NEWSPAPER DISTRIBUTOR SUPERVISOR Kenneth Bridges R.N. ? 06/01/2020 ??2:51 PM [...] Hematologic Disorders, Bone Marrow (06/01/2020 10:30 AM NEWSPAPER DISTRIBUTOR SUPERVISOR) Component Value Ref Test Analysis Performed Pathologis t Range Method Time At Signature Result Summary Abnormal 06/29/2020 DTL 10:26 AM NEWSPAPER DISTRIBUTOR SUPERVISOR Karyotype 46,XX,del(13)(q12q14 06/29/2020 DTL )[14]/46,XX[6] 10:26 AM NEWSPAPER DISTRIBUTOR SUPERVISOR Reason for myeloproliferative 06/29/2020 DTL referral neoplasm/MPN 10:26 AM NEWSPAPER DISTRIBUTOR SUPERVISOR Specimen Bone Marrow 06/29/2020 DTL 10:26 AM NEWSPAPER DISTRIBUTOR SUPERVISOR Method Culture without 06/29/2020 DTL mitogens 10:26 AM NEWSPAPER DISTRIBUTOR SUPERVISOR Banding Method Band Resolution: 06/29/2020 DTL <400 10:26 AM NEWSPAPER DISTRIBUTOR SUPERVISOR Stain Name ? Cells Analyzed Cells ? Karyogr ams ? Counted ? Prepared ? GTL ? 20 ? 0 ? 3 ? Total ? 20 ? 0 ? 3 ? Conley to Stain Name: GTL=G-banding; QFQ=Q-banding; DAPI=DAPI-staining; CBL=C-banding; AGNOR=Silver-staining; NON=Non-banded The sum of Cells Analyzed and Cells Counted equals the total cells examined. Released by Cate Junior, 06/29/2020 DTL M.D. 10:26 AM NEWSPAPER DISTRIBUTOR SUPERVISOR Interpretation The result is abnormal. Of 20 metaphases, six were n ormal 06/29/2020 DTL and 14 had a 13q deletion. An isolated 13q deletion clone 10:26 AM dividing in the bone marrow usually represents a myeloid NEWSPAPER DISTRIBUTOR SUPERVISOR malignancy, but can occasionally be associated with a lymphoid disorder (Seamus et al., Genes Chromosomes Cancer 27:278-284, 1999; Veroet et al., ibid. 25:222-229, 1998; Ileana et al., ibid. 14:106-111, 1995). Clinical and pathologic correlation is recommended. This test was ordered in the context of a [facility] pathology consultation/case (#[id number]), and this result should [...] be asso ciated with a lymphoid disorder (Saemus et al., Genes C hromosomes Cancer 27:278-284, 1999; Coignet et al., ibid. 25:222-229, 1998; Ileana et al., ibid. 14:106-111, 1994). Clinical and pathologic correlation is r ecommended. This test was ordered in the context of a [facility] pathology consultation/case (#[id number] ), and this result should be interpreted within the context of the pathology consultation/report., Flagged as: ??(Rep orted 06/06/2020 15:27) Specimen Anatomical Collection Method Collection Time Receive d Time (Source) Location / / Volume Laterality Bone Marrow 06/01/2020 10:30 06/02/2020 AM NEWSPAPER DISTRIBUTOR SUPERVISOR 10:45 AM NEWSPAPER DISTRIBUTOR SUPERVISOR Narrative This result has an attachment that is no t available. Janusz Ardon LAB GENETIC TESTING Performing Organization Address City/State/ZIP Code Phon e Number [facility] - [address] [place], [place] [address] [facility] [place] [address] [facility] [address] Hematopathology (06/01/2020 5:59 AM NEWSPAPER DISTRIBUTOR SUPERVISOR) Component Value Ref Test Analysis Performed Pathologis t Range Method Time At Signature 06/02/2020 [facility] 5:13 PM NEWSPAPER DISTRIBUTOR SUPERVISOR Report Maureen Barbour M.D., Ph.D. 06/02/2020 [facility] electronically I verify that I have examined all relevant slides/ma terials 5:13 PM signed by for the specimen(s) and rendered or confirmed the diagnosis. NEWSPAPER DISTRIBUTOR SUPERVISOR Gross Description B: ??Received in B5 and subsequently placed in fo rmalin, 06/02/2020 [facility] labeled with the patient's name, medical record number, and 5:13 PM bone marrow biopsy is a pale de la garza-brown bone marrow core, NEWSPAPER DISTRIBUTOR SUPERVISOR 0.3 cm in average diameter and 1.7 [...] developed and its performance characteri stics 06/02/2020 [facility] determined by [facility] in a manner consistent with CLIA 5:13 PM requirements. This test has not been cleared or approved by NEWSPAPER DISTRIBUTOR SUPERVISOR the U.S. Food and Drug Administration. Addendum ADDENDUM 06/26/2020 [facility] Molecular analysis for next generation sequencing (NGSHM), 1:04 PM bone marrow ([id number]; 06/01/2020): CS T Pathogenic Mutations Detected: 1. CALR: Chr19(GRCh37):g.13054627_13054628insTTGTC; NM_004343.3(CALR):c.1154_1155insTTGTC; p.Tfp617Bylqr*47 (44%) 2. SF3B1: Chr2(GRCh37):g.232974595E>C; NM_012433.2(SF3B1):c.1997A>G; p.Jag317Rnt (10%) ? Chr2(GRCh37):g.690299677Y>C; NM_012433.2(SF3B1):c.2098A>G; p.Epd268Cyz (30%) No other pathogenic mutations were detected [...] 1:04 PM ADDENDUM Cytogenetic analysis, bone marrow ([id number], 06/01/2020): 46,XX,del(13)(q12q14)[14]/46,XX[6] The result is abnormal. Of [...] marrow aspirate and biopsy, iliac 1:04 PM NEWSPAPER DISTRIBUTOR SUPERVISOR crest: Persistent chronic myeloid neoplasm, previously diagnosed [...] studies, bone marrow biopsy, antibodies to CD34: IA52-xranmvfi blasts are not increased. Cytogenetic analysis, bone [...] Laterality Varies 06/01/2020 5:59 AM 0 5:59 NEWSPAPER DISTRIBUTOR SUPERVISOR AM NEWSPAPER DISTRIBUTOR SUPERVISOR Narrative This result has an attachment that is no t available. Janusz Ardon LAB SURG PATH ORDERABLES Performing Organization Address City/State/ZIP Code Phon e Number [facility] - [address] [place], [place] [address] [place] [address] [facility] [address] OncoHeme NGS for Myeloid Neoplasms (05/31/2020 10:30 AM NEWSPAPER DISTRIBUTOR SUPERVISOR) Component Value Ref Test Analysis Performed Pathologis t Range Method Time At Signature Specimen Type Bone marrow 06/23/2020 DTL 4:57 PM NEWSPAPER DISTRIBUTOR SUPERVISOR Indication for MPN 06/23/2020 DTL Test 4:57 PM NEWSPAPER DISTRIBUTOR SUPERVISOR NGSHM Result See Interpretation 06/23/2020 DTL 4:57 PM NEWSPAPER DISTRIBUTOR SUPERVISOR Pathogenic 1. CALR: Chr19(GRCh37):g.13054627_13054628insTTGTC; 06/23/2020 DTL Mutations NM_004343.3(CALR):c.1154_1155insTTGTC; p.Yxf616Hjuaz*4 7 (44%) 4:57 PM Detected 2. SF3B1: Chr2(GRCh37):g.187306936K>C; NM_012433.2(SF3 B1):c.1997A>G; NEWSPAPER DISTRIBUTOR SUPERVISOR p.Kij494Rcd (10%) ? Chr 2(GRCh37):g.457466966Q>C; NM_012433.2(SF3B1):c.2098A>G; p.Txn544Udp (30%) No other pathogenic mutations were detected [...] the following sites: 4:57 PM 1). ClinicalTrials.gov: NEWSPAPER DISTRIBUTOR SUPERVISOR http://clinicaltrials.gov/ct2/search/advanced 2). [facility]: http://www.[facility]/research/clinical-trials 3). National Cancer [place]: http://www.cancer.gov/clinicaltrials/search 4). Molecular Match: https://www.[employer] Access [employer].com/ Variants of None 06/23/2020 DTL Unknown The VUS variants listed here (with approximate variant allele %) are not 4:57 PM Significance sufficiently characterized i n the current literature and are therefore of NEWSPAPER DISTRIBUTOR SUPERVISOR (VUS) uncertain clinical significance at this time. Th ey are reported here for future reference in the event they become clinic ally significant in the light of new scientific data. Additional None 06/23/2020 DTL Information 4:57 PM NEWSPAPER DISTRIBUTOR SUPERVISOR Method DNA is extracted from the peripheral blood or bone mar row sample and 06/23/2020 DTL following library preparation by hybrid capture, subjected to next generation 4:57 PM sequencing (NGS) with post-sequencing analysis o f tumor-associated mutations. NEWSPAPER DISTRIBUTOR SUPERVISOR Performance characteristics of NGS panel: Single base substitutions: accuracy >99%; reproducibility 10 0% (intra- and interassay); sensitivity 5-10% variant allele fraction wit h a minimum depth coverage of 250X. Insertion/deletion events: accuracy >99%; reproducibility 10 0% (intra- and interassay); sensitivity 5-10% variant allele fraction wit h a minimum depth coverage of 250X. This test was developed and its performance characteristics determined by [facility] in a manner consistent with CLIA requireme nts. This test has not been cleared or approved by the U.S. Food and Drug Administr ation. Disclaimer CLINICAL DISCLAIMER 06/23/2020 DTL Mutation calls detected between 5-10% variant allele f ractions (VAF) may 4:57 PM indicate low-level (i.e. subclonal) tumor populations, although the clinical NEWSPAPER DISTRIBUTOR SUPERVISOR significance of these findings may not be [...] clearly distinguishable from tu mor-associated mutations (PMID [id number];10317515;942385 37). ??Prior treatment for hematologic malignancy could [...] insertion/deletion (indel) events , copy number alterations (GASOLINE TRACTOR OPERATOR) and gene translocation events are not dete cted by this assay. OncoHeme Panel ANKRD26 ??(NM_014915.2) 5'UT R, exons 1-4, intron c.172, ??ASXL1 ??(NM_015338.5) 06/23/2020 DTL Gene list exons 10-13, ??BCOR ??(NM_00 3908853.1) exons 4-15, ??CALR ??(NM_004343.3) exon 9, 4:57 PM CBL ??(NM_005188.3) intron 7 last 100bps before start of e xon 8, exon 8, NEWSPAPER DISTRIBUTOR SUPERVISOR intron 8, and exon 9, ??CEBPA ??(NM_004364.4) [...] ??JAK2 ??(NM_004972.3) exons 12-16, ??KDM6A ??(UTX) (NM_0 68711.3) exons 1-29, ??KIT ??(NM_000222.2) exons 8-11 and [...] DTL Jolene Neal 4:57 PM Dewayne Alexandra NEWSPAPER DISTRIBUTOR SUPERVISOR Interpretation These results are considered preliminary and require complete integration 06/23/2020 DTL with the current pathology case [id number] for final i nterpretation. ??The 4:57 PM result should NOT be interpreted in isolation for the purposes of diagnosis NEWSPAPER DISTRIBUTOR SUPERVISOR or clinical management. 1. CALR: Chr19(GRCh37):g.13054627_13054628insTTGTC; NM_004343.3(CALR):c.1154_1155insTTGTC; p.Lse738Iowvm*47 Normal gene/protein function : The ??CALR ??gene, located on chromosome 19p13.2, encodes for calreticulin, a multifunctional protein playing roles in endoplasmic reticulum (ER) protein folding, calcium homeosta sis, cellular proliferation, apoptosis and immunogenic cell (Jose E parham et al., 2013, 22675583). Mutation effect: The p.Hav900Qbhro*47 frameshift alteration results in a 5 base-pair (bp) insertion, and is the second most commo n type of somatic CALR mutation (type 2, approximately 32%) seen in myeloproliferat otoniel neoplasms (MPN) (Jocy et al., 2013, 77708512; Callie et al., 2013 , 52271123). Pathogenic somatic CALR mutations in MPN reported to date ar e exon 9 frameshift insertions and/or deletions (indels) (Jocy et al., 2013, 69088611; Callie et al., 2013, 82887960; Asya et al., 2019, 31386222). They generate a specific alternative reading frame [...] the C-terminus neoepitope (Alec et al., 2016, 12608721; [facility], 51240303; Makenna et al., 2016, 99521533). It has been reported that CALR type 1/like and type 2/like mutants were sufficient to induce a MPN phen otype in retroviral mouse models (Nestor et al., 2016, 67433236; Maryam nicholasoddi et al., 2019, 79086492). Disease associations: Frameshift indel mutations in CA [...] chronic myeloid leukemia (3%)(Jocy et al., 2013, 63253769; Callie et al., 2013, 78970860; Kaye et al., 20 14, 11434553; Papoo et al., 2014, ??00542171; Temalihai et al., 2014, 08313602). Therapeutic implications: Currently, there is no therapy [...] e to or intolerance of hydroxyurea (https://www.accessdata.fda.gov/drugsatf da_docs/label/2019/210384t262guo.pdf). Ruxolitinib demonstrated efficacy in improving constituti onal symptoms and reducing spleen size (Connie et al., 2012, 16334751; Hansel bailey et al., 2012, 06723887). In a phase 2 clinical trial, it demonstrate d modest antileukemic activity as a single agent in patients wi th refractory post-MPN AML (Gloria et al., 2012, 53857427). The FDA has als o approved fedratinib, a JAK2 inhibitor that reduces phosphorylation of STAT3/5, for the treatment of adults with intermediate-2 or high-risk primary or second kasie MF (i.e. post-polycythemia vera or post-essential thrombocythemia MF) (https://www.accessdata.fda.gov/drugsatf da_docs/label/2019/109772o426usb.pdf). 2. SF3B1: Chr2(GRCh37):g.280449611Y>C; NM_012433.2(SF3B1):c. 1997A>G; p.Tso776Tkv ? Chr 2(GRCh37):g.478596983S>C; NM_012433.2(SF3B1):c.2098A>G; p.Wof757Yao Normal gene/protein function: The SF3B1 gene, located on c hromosome 2q33.1, encodes subunit 1 of the splicing factor 3b protein co mplex. This complex is a member of the RNA spliceosome and is involved in 3' splice site recognition and pre-mRNA processing during gene silver plater (Milo et al., 2014, 22993255; Natanael et al., 2013, 17357514; Kassie et al., 20 11, 16785879). Mutation effect: The missense p.Kpp697Kmb (K666R) mutation occurs in one of the [...] hematologic malignancie s through induction of abnormal silver plater and alternative gene spli cing (Milo et al., 2014, 01763554; Natanael et al., 2013, 73198569; Kassie et al., 20 11, 17757366). In this case, the detected double SF3B1 mutations may repr esent a biallelic event or tandem mutations involving one allele of the gene, or alternatively two distinct subclonal populations. Disease associations: Somatic mutations in SF3B1 have been identified in both myeloid and lymphoid tumors with similar mutation distributi on (Natanael et al., 2013, 12884794; Wan and Magana, 2013, 29915650; Tobin chavez et al., 2011, 22253206; Janine et al., 2011, 47100220). SF3B1 is mutate d in 20-28% of myelodysplastic syndrome (MDS) and is particularly prevalent (>80%) in MDS with ring sideroblasts (RARS) and the myeloproliferative/mye lodysplastic neoplasm refractory anemia with ring sideroblasts associated with marked thrombocytosis (RARS-T) (Mame and You, 2015, 65737686 ; Janine et al., 2015, 99439212; Chase et al., 2013, 86435013). The pr ognostic significance of SF3B1 mutation in low risk MDS is controvers ial, with some studies finding a favorable impact on outcome and others sb wing no effect after accounting for precise pathologic subclassification (P sandra and You, 2015, 70126171; Janine et al., 2015, 69263 392; Janine et al., 2014, 96857764; Kashifti et al., 2015, 57356324; Natanael hannon t al., 2013, 87481146). In acute myeloid leukemia (AML), SF3B1 mutations are seen in approximately 11% of secondary AML and only 1% of de moe AM L; they are highly associated with secondary AML and a worse clinical outcome (Zully et al., 2015, 08922826). In chronic lymphocytic leukemia (CL L), SF3B1 mutations are seen in approximately 10-15% of cases and are more commonly associated with advanced disease and poor prognosis (Colin and Magana, 2013, 67875037; Natanael et al., 2013, 91678651). Therapeutic implications: There is no currently available th erapy directly targeting spliceosome mutations. Specimen Anatomical Collection Method Collection Time Receive d Time (Source) Location / / Volume Laterality Varies 05/31/2020 10:30 06/02/2020 AM NEWSPAPER DISTRIBUTOR SUPERVISOR 10:49 AM NEWSPAPER DISTRIBUTOR SUPERVISOR Narrative This result has an attachment that is no t available. Janusz Ardon LAB GENETIC TESTING Performing Organization Address City/State/ZIP Code Phon e Number [facility] - [address] [place], [place] [address] [facility] [place] [address] [facility] [address] documented in this encounter Visit Diagnoses Diagnosis Myelofibrosis (HCC) documented in this encounter
--- OUTSIDE RECORDS SUMMARY | 2022-05-02 12:38 | XMS_ITS | Encounter Summary ---
:1970 Author Organization [facility] Address [address] [place] [address] Care Team Providers Name Role Phone Unavailable Primary Care Provider Unavailable Reason for Referral Outpatient (Routine) - Closed Specialty Diagnoses / Procedures Referred By Contact Refer red To Contact Radiology Diagnoses Myelofibrosis (HCC) Janusz Govea M.B.B.S. [facility] Procedures CT Abdomen Pelvis with IV Contrast CT Abdomen Pelvis without and with IV Contrast OR CT ABD&PELVIS WO/W CNTRST [address] [place] [address] Referral ID Status Reason Start Date Expiration Date Visits Requ ested Visits Authorized [id number] Closed 06/02/2020 06/02/2021 1 1 MILL TENDER Encounter Details Date Type Department Care Team Description 06/02/2020 Orders Only Division of Hematology Janusz Govea M yelofibrosis (HCC) in [facility] M.B.B.S. (Primary Dx) [place] [address] [facility] [address] [place] [phone] Social History Tobacco Use Types Packs/Day Years Used Date Smoking Tobacco: Former Smokeless Tobacco: Never Sex Assigned at Date Recorded Female 07/24/2021 11:03 AM MIX MILL TENDER documented as of this encounter Plan of Treatment Not on filedocumented as of this encounter Results CT Abdomen Pelvis with IV Contrast (06/05/2020 1:48 PM MIX MILL TENDER) Anatomical Region Laterality Modality Abdomen, Pelvis, Abdominal RST LOS, N/A Comp uted Tomography, Computed Abdominal ARZ LOS, Abdominal FLA LOS Esa ography Specimen (Source) Anatomical Collection Method Collection Time Re ceived Time Location / / Volume Laterality 06/05/2020 3:28 PM MIX MILL TENDER Impressions 06/05/2020 4:38 PM MIX MILL TENDER 1. Marked splenomegaly, with the spleen measuring 33 cm. 2. Small splenic infarct in the anteroin ferior portion of the spleen. 3. Indeterminate 1.5 cm left adrenal mas s, likely an adenoma. Narrative 06/05/2020 4:38 PM MIX MILL TENDER EXAM: ??CT ABDOMEN PELVIS WITH IV CONTRAST [...]
--- OUTSIDE RECORDS SUMMARY | 2022-05-02 12:38 | XMS_ITS | Encounter Summary ---
:1970 Author Organization [facility] Address [address] [place] [address] Care Team Providers Name Role Phone Unavailable Primary Care Provider Unavailable Reason for Referral Outpatient (Routine) - Closed Specialty Diagnoses / Procedures Referred By Contact Refer red To Contact Diagnoses Myelofibrosis (HCC) Janusz Govea M.B.B.S. [facility] Procedures Biopsy Bone Marrow [address] [place] [address] Referral ID Status Reason Start Date Expiration Date Visits Requ ested Visits Authorized [id number] Closed 05/22/2020 05/22/2021 1 1 LITY TECHNICIAN Outpatient (Routine) - Closed Specialty Diagnoses / Procedures Referred By Contact Refer red To Contact Diagnoses Myelofibrosis (HCC) Janusz Govea M.B.B.S. [facility] Procedures ECG 12 Lead [address] [place] [phone] Referral ID Status Reason Start Date Expiration Date Visits Requ ested Visits Authorized [id number] Closed 05/22/2020 05/22/2021 1 1 LITY TECHNICIAN Encounter Details Date Type Department Care Team Description 05/22/2020 Orders Only Division of Hematology Janusz Govea M yelofibrosis (HCC) in [facility] MSharitaB.S. 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 ? 06/01/2020 ??2:51 PM [...] NA ECG 12 Lead (05/25/2020 11:29 AM FACILITY TECHNICIAN) P athologist Signature Ventricular Rate 80 BPM MUSE ECG/Min PA Interval 134 ms MUSE QRSD Interval 78 ms MUSE QT Interval 390 ms MUSE QTC Interval 449 ms MUSE P Ethel 8 degrees MUSE R Ethel 22 degrees MUSE T Wave Ethel 46 degrees MUSE Specimen Anatomical Collection Method Collection Time Receive d Time (Source) Location / / Volume Laterality 05/25/2020 11:29 05/25/2020 AM FACILITY TECHNICIAN 11:42 AM FACILITY TECHNICIAN Impressions MUSE - 05/25/2020 11:42 AM FACILITY TECHNICIAN Sinus rhythm Premature atrial complexes Minimal voltage [...] Govea M.B.B.S. 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 1:49 PM FACILITY TECHNICIAN Comment: CALR mutation is identified in approximately [...] Exon 9 of CALR was amplified from [facility] [employer] DNA by polymerase chain reaction (PCR). The [...] and its performa nce characteristics determined by [facility] in a manner consistent with CLIA requirements. This test has not been cleared or approved by the [place] and Drug Administration. Specimen Anatomical Collection Method Collection Time Receive d Time (Source) Location / / Volume Laterality Varies (Blood, 05/25/2020 11:17 0 Venous) AM FACILITY TECHNICIAN 12:45 PM FACILITY TECHNICIAN Narrative This result has an attachment that is no t available. Janusz Ardon LAB GENETIC TESTING Performing Organization Address City/State/ZIP Code Phon e Number [facility] - [address] [address] [facility] 200 [facility] Lipase (05/25/2020 11:16 AM FACILITY TECHNICIAN) P athologist Signature Lipase, S 29 13 - 60 U/L 05/25/2020 DTL 12:05 PM FACILITY TECHNICIAN Specimen Anatomical Collection Method Collection Time Receive d Time (Source) Location / / Volume Laterality Blood (Blood, 05/25/2020 11:16 05/25/2020 Venous) AM FACILITY TECHNICIAN 11:54 AM FACILITY TECHNICIAN Janusz Higgins.B.S. LAB BLOOD ADD-ON Performing Organization Address City/State/ZIP Code Phon e Number [facility] - [address] Amylase, Total (05/25/2020 11:16 AM FACILITY TECHNICIAN) P athologist Signature Amylase, Total, 28 26 - 102 05/25/2020 DT S U/L 12:05 PM FACILITY TECHNICIAN Specimen Anatomical Collection Method Collection Time Receive d Time (Source) Location / / Volume Laterality Blood (Blood, 05/25/2020 11:16 05/25/2020 Venous) AM FACILITY TECHNICIAN 11:54 AM FACILITY TECHNICIAN Janusz HayesB.B.S. LAB BLOOD ADD-ON Performing Organization Address City/State/ZIP Code Phon e Number [facility] - [address] (ABNORMAL) Prothrombin Time (PT) (05/25/2020 11:15 AM FACILITY TECHNICIAN) Patholo gist Method Time Signature Prothrombin 13.7 (H) 9.4 - 12.5 05/25/2020 DTL Time, P sec 12:32 PM FACILITY TECHNICIAN INR 1.2 0.9 - 1.1 05/25/2020 DTL 12:32 PM FACILITY TECHNICIAN Comment: ----ADDITIONAL INFORMATION---- Standard intensity warfarin therapeutic range: 2.0 to 3.0 ?? High intensity warfarin therapeutic rang e: 2.5 to 3.5 Specimen Anatomical Collection Method Collection Time Receive d Time (Source) Location / / Volume Laterality Blood (Blood, 05/25/2020 11:15 05/25/2020 Venous) AM FACILITY TECHNICIAN 11:41 AM FACILITY TECHNICIAN Janusz Govea M.B.B.S. LAB BLOOD ADD-ON Performing Organization Address City/State/[facility] Code Phon e Number [facility] - [address] [place] [address] [place] [address] Glucose, Random (05/25/2020 11:15 AM FACILITY TECHNICIAN) athologist Signature Glucose, S 136 70 - 140 05/25/2020 DTL mg/dL 12:03 PM FACILITY TECHNICIAN Specimen Anatomical Collection Method Collection Time Receive d Time (Source) Location / / Volume Laterality Blood (Blood, 05/25/2020 11:15 05/25/2020 Venous) AM FACILITY TECHNICIAN 11:48 AM FACILITY TECHNICIAN Janusz Govea M.B.B.S. LAB BLOOD TROPONIN Performing Organization Address City/[facility]/ZIP Code Phon e Number [facility] - [address] (ABNORMAL) Uric Acid (05/25/2020 11:15 AM FACILITY TECHNICIAN) athologist Signature Uric Acid, S 9.2 (H) 2.7 - 6.1 05/25/2020 DTL mg/dL 12:03 PM FACILITY TECHNICIAN Specimen Anatomical Collection Method Collection Time Receive d Time (Source) Location / / Volume Laterality Blood (Blood, 05/25/2020 11:15 05/25/2020 Venous) AM FACILITY TECHNICIAN 11:48 AM FACILITY TECHNICIAN Janusz Govea M.B.B.S. LAB BLOOD ADD-ON Performing Organization Address City/State/ZIP [facility] Phon e Number [facility] - [address] [place] [address] [place] [address] Creatinine with Estimated GFR (05/25/2020 11:15 AM FACILITY TECHNICIAN) athologist Signature Creatinine 1.04 0.59 - 05/25/2020 DTL 1.04 mg/dL 12:03 PM FACILITY TECHNICIAN eGFR-Non 62 >=60 05/25/2020 DTL Black/ mL/min/BSA 12:03 PM FACILITY TECHNICIAN [place] Comment: ----ADDITIONAL INFORMATION---- Estimated GFR calculated using the 2009 CKD_EPI creatinine equation. eGFR-Black/ 71 >=60 mL/min/BSA 2019 12:03 PM FACILITY TECHNICIAN DTL Comment: ----ADDITIONAL INFORMATION---- Estimated GFR calculated using the 2009 CKD_EPI creatinine equation. Specimen Anatomical Collection Method Collection Time Receive d Time (Source) Location / / Volume Laterality Blood (Blood, 05/25/2020 11:15 05/25/2020 Venous) AM FACILITY TECHNICIAN 11:48 AM FACILITY TECHNICIAN Janusz Higgins.B.S. LAB BLOOD ADD-ON Performing Organization Address City/[facility] Phon e Number [facility] - [address] [place] [address] BUN (Blood Urea Nitrogen) (05/25/2020 11:15 AM FACILITY TECHNICIAN) P athologist Signature BUN (Blood Urea 19 6 - 21 05/25/2020 DTL Nitrogen), S mg/dL 12:03 PM FACILITY TECHNICIAN Specimen Anatomical Collection Method Collection Time Receive d Time (Source) Location / / Volume Laterality Blood (Blood, 05/25/2020 11:15 05/25/2020 Venous) AM FACILITY TECHNICIAN 11:48 AM FACILITY TECHNICIAN Janusz Higgins.B.S. LAB BLOOD ADD-ON Performing Organization Address City/[facility] Phon e Number [facility] - [address] [place], [place] [address] [facility] [place], [place] [phone] [place] [address] Alkaline Phosphatase (05/25/2020 11:15 AM FACILITY TECHNICIAN) P athologist Signature Alkaline 38 35 - 104 05/25/2020 DTL Phosphatase, S U/L 12:03 PM FACILITY TECHNICIAN Specimen Anatomical Collection Method Collection Time Receive d Time (Source) Location / / Volume Laterality Blood (Blood, 05/25/2020 11:15 05/25/2020 Venous) AM FACILITY TECHNICIAN 11:48 AM FACILITY TECHNICIAN Janusz Dillon.B.B.S. LAB BLOOD ADD-ON Performing Organization Address City/State/[facility] Phon e Number [facility] - [address] [place], [place] [address] [place] [phone] [place] [address] AST (Aspartate Aminotransferase) (05/25/2020 11:15 AM FACILITY TECHNICIAN) [facility] gist Method Time Signature Aspartate 29 8 - 43 05/25/2020 DTL Aminotransferase U/L 12:03 PM FACILITY TECHNICIAN (AST), S Specimen Anatomical Collection Method Collection Time Receive d Time (Source) Location / / Volume Laterality Blood (Blood, 05/25/2020 11:15 05/25/2020 Venous) AM FACILITY TECHNICIAN 11:48 AM FACILITY TECHNICIAN Naseema Gangat M.B.B.S. LAB BLOOD ADD-ON Performing Organization Address City/[facility] Phon e Number [facility] - 200 [place], [place] [address] [place] [phone] [place] [address] ALT (Alanine Aminotransferase) (05/25/2020 11:15 AM FACILITY TECHNICIAN) [facility] Method Time Signature Alanine 15 7 - 45 05/25/2020 DTL Aminotransferase U/L 12:03 PM FACILITY TECHNICIAN (ALT), S Specimen Anatomical Collection Method Collection Time Receive d Time (Source) Location / / Volume Laterality Blood (Blood, 05/25/2020 11:15 05/25/2020 Venous) AM FACILITY TECHNICIAN 11:48 AM FACILITY TECHNICIAN Naseewilman Mcdonaldgat M.B.B.S. LAB BLOOD ADD-ON Performing Organization Address City/[facility] Phon e Number [facility] - 200 [place], [place] [address] [place] [address] DTL [place], [place] [phone] [place] [address] Bilirubin, Total (05/25/2020 11:15 AM FACILITY TECHNICIAN) P athologist Signature Bilirubin, 0.9 <=1.2 mg/dL 05/25/2020 DTL Total, S 12:03 PM FACILITY TECHNICIAN Specimen Anatomical Collection Method Collection Time Receive d Time (Source) Location / / Volume Laterality Blood (Blood, 05/25/2020 11:15 05/25/2020 Venous) AM FACILITY TECHNICIAN 11:48 AM FACILITY TECHNICIAN Naseema Gangat M.B.B.S. LAB BLOOD ADD-ON Performing Organization Address City/[facility] Phon e Number [facility] - [address] Albumin (05/25/2020 11:15 AM FACILITY TECHNICIAN) P athologist Signature Albumin, S 4.4 3.5 - 5.0 05/25/2020 DTL g/dL 12:03 PM FACILITY TECHNICIAN Specimen Anatomical Collection Method Collection Time Receive d Time (Source) Location / / Volume Laterality Blood (Blood, 05/25/2020 11:15 05/25/2020 Venous) AM FACILITY TECHNICIAN 11:48 AM FACILITY TECHNICIAN Janusz AlexandraSZahraa LAB BLOOD ADD-ON Performing Organization Address City/[facility] Phon e Number [facility] - [phone] [place] [address] (ABNORMAL) Protein, Total (05/25/2020 11:15 AM FACILITY TECHNICIAN) P athologist Signature Protein, 6.2 (L) 6.3 - 7.9 05/25/2020 DTL Total, S g/dL 12:03 PM FACILITY TECHNICIAN Specimen Anatomical Collection Method Collection Time Receive d Time (Source) Location / / Volume Laterality Blood (Blood, 05/25/2020 11:15 05/25/2020 Venous) AM FACILITY TECHNICIAN 11:48 AM FACILITY TECHNICIAN Janusz AlexandraSZahraa LAB BLOOD ADD-ON Performing Organization Address City/[facility] Code Phon e Number [facility] - [address] Calcium, Total (05/25/2020 11:15 AM FACILITY TECHNICIAN) P athologist Signature Calcium, Total, 8.8 8.6 - 10.0 05/25/2020 DTL S mg/dL 12:03 PM FACILITY TECHNICIAN Specimen Anatomical Collection Method Collection Time Receive d Time (Source) Location / / Volume Laterality Blood (Blood, 05/25/2020 11:15 05/25/2020 Venous) AM FACILITY TECHNICIAN 11:48 AM FACILITY TECHNICIAN Janusz Govea M.B.B.S. LAB BLOOD ADD-ON Performing Organization Address City/State/ZIP Code Phon e Number [facility] - [address] [place], [place] [address] [place] [address] [facility] [address] Chloride (05/25/2020 11:15 AM FACILITY TECHNICIAN) P athologist Signature Chloride, S 105 98 - 107 05/25/2020 DTL mmol/L 12:03 PM FACILITY TECHNICIAN Specimen Anatomical Collection Method Collection Time Receive d Time (Source) Location / / Volume Laterality Blood (Blood, 05/25/2020 11:15 05/25/2020 Venous) AM FACILITY TECHNICIAN 11:48 AM FACILITY TECHNICIAN Janusz Govea M.B.B.S. LAB BLOOD ADD-ON Performing Organization Address City/[facility] Phon e Number [facility] - [address] [place], [place] [address] [place] [address] [facility] [address] (ABNORMAL) Magnesium (05/25/2020 11:15 AM FACILITY TECHNICIAN) P athologist Signature Magnesium, S 2.5 (H) 1.7 - 2.3 05/25/2020 DTL mg/dL 12:03 PM FACILITY TECHNICIAN Specimen Anatomical Collection Method Collection Time Receive d Time (Source) Location / / Volume Laterality Blood (Blood, 05/25/2020 11:15 05/25/2020 Venous) AM FACILITY TECHNICIAN 11:48 AM FACILITY TECHNICIAN Janusz Govea M.B.B.S. LAB BLOOD ADD-ON Performing Organization Address City/State/ZIP Code Phon e Number [facility] - [address] [place], [place] [address] [place] [address] [facility] [address] Potassium (05/25/2020 11:15 AM FACILITY TECHNICIAN) P athologist Signature Potassium, S 4.9 3.6 - 5.2 05/25/2020 DTL mmol/L 12:03 PM FACILITY TECHNICIAN Specimen Anatomical Collection Method Collection Time Receive d Time (Source) Location / / Volume Laterality Blood (Blood, 05/25/2020 11:15 05/25/2020 Venous) AM FACILITY TECHNICIAN 11:48 AM FACILITY TECHNICIAN Janusz ArringtonBZahraaS. LAB BLOOD ADD-ON Performing Organization Address City/State/[facility] Code Phon e Number [facility] - 200 [place], [place] [address] [place] [address] [place] [address] [address] Sodium (05/25/2020 11:15 AM FACILITY TECHNICIAN) P athologist Signature Sodium, S 144 135 - 145 05/25/2020 DTL mmol/L 12:03 PM FACILITY TECHNICIAN Specimen Anatomical Collection Method Collection Time Receive d Time (Source) Location / / Volume Laterality Blood (Blood, 05/25/2020 11:15 05/25/2020 Venous) AM FACILITY TECHNICIAN 11:48 AM FACILITY TECHNICIAN Janusz ArringtonBZahraaS. LAB BLOOD ADD-ON Performing Organization Address City/[facility] Phon e Number [facility] - [phone] [place] [address] (ABNORMAL) CBC with Differential, Blood (05/25/2020 11:14 AM FACILITY TECHNICIAN) Patholo gist Method Time Signature Hemoglobin 6.6 (L) 11.6 - 05/25/2020 DTL 15.0 g/dL 11:53 AM FACILITY TECHNICIAN Hematocrit 23.3 (L) 35.5 - 05/25/2020 DTL 44.9 % 11:53 AM FACILITY TECHNICIAN Erythrocytes 2.51 (L) 3.92 - 05/25/2020 DTL 5.13 11:53 AM FACILITY TECHNICIAN x10(12)/L MCV 92.8 78.2 - 05/25/2020 DTL 97.9 fL 11:53 AM FACILITY TECHNICIAN RBC Distrib Width 28.9 (H) 12.2 - 05/25/2020 DTL 16.1 % 12:56 PM FACILITY TECHNICIAN Platelet Count 92 (L) 157 - 371 05/25/2020 DTL x10(9)/L 12:56 PM FACILITY TECHNICIAN Comment: Large platelets - count approxi mate. Leukocytes 3.3 (L) 3.4 - 9.6 x10(9)/L 05/25/2020 12:56 PM FACILITY TECHNICIAN DTL Comment: Results confirmed by smear. Neutrophils SeeComment 1.56 - 6.45 x10(9)/L 05/25/2020 12:56 PM FACILITY TECHNICIAN DTL Comment: Auto-diff results not valid. Se e manual differential. Specimen Anatomical Collection Method Collection Time Receive d Time (Source) Location / / Volume Laterality Blood (Blood, 05/25/2020 11:14 05/25/2020 Venous) AM FACILITY TECHNICIAN 11:41 AM FACILITY TECHNICIAN Janusz Ardon LAB BLOOD ADD-ON Performing Organization Address City/State/ZIP Code Phon e Number [facility] - [address] [place], [place] [address] [facility] [place] [address] [facility] [address] documented in this encounter Visit Diagnoses Diagnosis Myelofibrosis (HCC) - Primary Myelofibrosis (HCC) documented in this encounter
--- OUTSIDE RECORDS SUMMARY | 2022-05-02 12:38 | XMS_ITS | Encounter Summary ---
:1970 Author Organization [facility] Address [address] [place] [address] Care Team Providers Name Role Phone Unavailable Primary Care Provider Unavailable Encounter Details Date Type Department Care Team Description 05/24/2020 Documentation [facility] [address] [facility] [address] [place] [phone] [place], [place] [phone] Social History Tobacco Use Types Packs/Day Years Used Date Smoking Tobacco: Former Smokeless Tobacco: Never Sex Assigned at Date Recorded Female 07/24/2021 11:03 AM 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
--- OUTSIDE RECORDS SUMMARY | 2022-05-02 12:38 | XMS_ITS | Encounter Summary ---
:1970 Author Organization [facility] Address [address] [place] [address] Care Team Providers Name Role Phone Unavailable Primary Care Provider Unavailable Encounter Details Date Type Department Care Team Description 05/23/2020 Orders Only Division of Hematology in [place], [place] M.B.B.S. 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
--- OUTSIDE RECORDS SUMMARY | 2022-05-02 12:38 | XMS_ITS | Encounter Summary ---
:1970 Author Organization [facility] Address [address] [place] [address] Care Team Providers Name Role Phone Unavailable Primary Care Provider Unavailable Reason for Visit Outpatient (Routine) - Closed Specialty Diagnoses / Procedures Referred By Contact Refer red To Contact Diagnoses Myelofibrosis (HCC) Janusz Govea M.B.B.S. [facility] Procedures Biopsy Bone Marrow [address] [place] [phone] Referral ID Status Reason Start Date Expiration Date Visits Requ ested Visits Authorized [id number] Closed 05/22/2020 05/22/2021 1 1 Encounter Details Date Type Department Care Team Description 05/25/2020 Hospital Encounter Outpatient Reema Govea ma M.B.B.S. 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
--- OUTSIDE RECORDS SUMMARY | 2022-05-02 12:39 | XMS_ITS | Encounter Summary ---
:1970 Author Organization [facility] Address [address] [place] [address] Care Team Providers Name Role Phone Unavailable Primary Care Provider Unavailable Encounter Details Date Type Department Care Team Description 02/22/2019 Orders Only Division of Dora Sofia, Splenomegaly A cquired Hepatobiliary and R.N. 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
--- OUTSIDE RECORDS SUMMARY | 2022-05-02 12:39 | XMS_ITS | Encounter Summary ---
:1970 Author Organization [facility] Address [address] [place] [address] Care Team Providers Name Role Phone Unavailable Primary Care Provider Unavailable Reason for Visit Outpatient (Routine) - Closed Specialty Diagnoses / Procedures Referred By Contact Refer red To Contact General Surgery Diagnoses Myelofibrosis (HCC) [facility] M[facility]arita[facility]ahraa [address] [place] [phone] Referral ID Status Reason Start Date Expiration Date Visits Requ ested Visits Authorized [id number] Closed 02/19/2019 02/19/2020 1 1 Encounter Details Date Type Department Care Team Description 02/22/2019 Comprehensive Visit Division of Hema Rothman Acquired (Primary Dx); Hepatobiliary and Dewayne Brito Myelofibrosis (HCC) Pancreas Surgery in [address] [place] [address] [place] [phone] [place], [place] [phone] (Work) [phone] Social History Tobacco Use Types Packs/Day Years Used Date Smoking Tobacco: Former Smokeless Tobacco: Never Sex Assigned at Date Recorded Female 07/24/2021 11:03 AM BANQUET STEWARD documented as of this encounter Consult Notes [...]
--- OUTSIDE RECORDS SUMMARY | 2022-05-02 12:39 | XMS_ITS | Encounter Summary ---
:1970 Author Organization [facility] Address [address] [place] [address] Care Team Providers Name Role Phone Unavailable Primary Care Provider Unavailable Reason for Visit Reason Onset Date Comments Please call Dr. 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 She stated that Dr. Dylon Cr would like to speak with Dr. Govea. Please call him at 4 pm if you are able. If earlier, they may need to call him from a room but they are willing to do that if necessary. Please call: [phone] Thank you, Bertha documented in 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
--- OUTSIDE RECORDS SUMMARY | 2022-05-02 12:39 | XMS_ITS | Encounter Summary ---
:1970 Author Organization [facility] Address [address] [place] [address] Care Team Providers Name Role Phone Unavailable Primary Care Provider Unavailable Encounter Details Date Type Department Care Team Description 02/19/2019 Hospital Encounter Department of Gangat, Myelofib rosis ([facility]) Laboratory Medicine [facility], and Pathology, [facility], in [address] [place] [phone] [place], [place] [phone] (Work) [phone] Social History Tobacco Use Types Packs/Day Years Used Date Smoking Tobacco: Former Smokeless Tobacco: Never Sex Assigned at Date Recorded 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 Medications at [...] (ABNORMAL) Erythropoietin (EPO) (02/19/2019 10:37 AM CDT) [facility] Method Time Signature Erythropoietin 116 (H) 2.6 - 02/19/2019 (EPO), S 18.5 2:53 PM CDT mIU/mL Specimen Anatomical Collection Method Collection Time Receive d Time (Source) Location / / Volume Laterality Blood (Blood, 02/19/2019 10:37 02/19/2019 1:21 Venous) AM CDT PM CDT Janusz Ardon LAB BLOOD ADD-ON Performing Organization Address City/State/ZIP Code Phon e Number [facility] [address] [place], [place] [address] [facility] (ABNORMAL) LD (Lactate Dehydrogenase) (02/19/2019 10:37 AM CDT) [facility] Method Time Signature Lactate 827 (H) 122 - 222 02/19/2019 Dehydrogenase U/L 11:43 AM CDT (LD), S Specimen Anatomical Collection Method Collection Time Receive d Time (Source) Location / / Volume Laterality Blood (Blood, 02/19/2019 10:37 02/19/2019 Venous) AM CDT 11:00 AM CDT Janusz Ardon LAB BLOOD NON ADD-ON Performing Organization Address City/State/ZIP Code Phon e Number [facility] - [address] [place], [place] [address] [facility] (ABNORMAL) Comprehensive Metabolic Panel (02/19/2019 10:37 AM [...] >=60 02/19/2019 Black/ mL/min/BSA 11:43 AM CDT Iranian Comment: ----ADDITIONAL INFORMATION---- Estimated [...] Address City/State/ZIP Code Phon e Number [facility] - [address] [place], [place] [address] [facility] (ABNORMAL) Morphology Evaluation (Special Smear) (02/19/2019 10:37 AM CDT) [facility] gist Method Time Signature Neutrophilic [...] Address City/State/ZIP Code Phon e Number [facility] - [address] [place], [place] [address] [facility] (ABNORMAL) CBC with Differential, Blood (02/19/2019 10:37 AM CDT) [facility] Method Time Signature Hemoglobin 8.0 (L) 11.6 [...] Address City/State/ZIP Code Phon e Number [facility] - [address] [place], [place] [address] [facility] documented in this encounter Visit Diagnoses Diagnosis Myelofibrosis (HCC) documented in this encounter
--- OUTSIDE RECORDS SUMMARY | 2022-05-02 12:39 | XMS_ITS | Encounter Summary ---
:1970 Author Organization [facility] Address [address] [place] [address] Care Team Providers Name Role Phone Unavailable Primary Care Provider Unavailable Reason for Referral Outpatient (Routine) - Closed Specialty Diagnoses / Procedures Referred By Contact Refer red To Contact General Surgery Diagnoses Myelofib[facility] (HCC[facility] [address] [place] [phone] Referral ID Status Reason Start Date Expiration Date Visits Requ ested Visits Authorized [id number] Closed 02/19/2019 02/19/2020 1 1 Reason for Visit Appointment Request (Routine) - Closed Specialty Diagnoses / Procedures Referred By Contact Refer red To Contact Hematology Diagnoses [facility] Procedures Referral ID Status Reason Start Date Expiration Date Visits Requ ested Visits Authorized [id number] Closed 02/05/2019 02/22/2019 2 2 Encounter Details Date Type Department Care Team Description 02/19/2019 Comprehensive Visit Division of Xuan Myelrome rosliliana (HCC) Hemat[facility] in [facility] Dx[facility] [phone] Social History Tobacco Use Types Packs/Day Years Used Date Smoking Tobacco: Former Smokeless Tobacco: Never Sex Assigned at Date Recorded 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 Cr at the [facility]. She has also seen a surgeon for [...] The closest site to her would be [place]. I have given her the contact information to reach out to the company and subsequently the site complaint investigator to discuss her candidacy. I also [...] Name Type Priority Associated Diagnoses Order S [facility] Surgery - Outpatient Referral Routine Myelofibrosis (H CC) Expected: Spleen consult 02/19/2019 (clinic) (Approximate), Expires: 02/19/2022 documented as of this encounter Results (ABNORMAL) Erythropoietin (EPO) (02/19/2019 10:37 AM CDT) [facility] Method Time Signature Erythropoietin 116 (H) 2.6 - 02/19/2019 (EPO), S 18.5 2:53 PM CDT mIU/mL Specimen Anatomical Collection Method Collection Time Receive d Time (Source) Location / / Volume Laterality Blood (Blood, 02/19/2019 10:37 02/19/2019 1:21 Venous) AM CDT PM CDT Janusz Ardon LAB BLOOD ADD-ON Performing Organization Address City/[facility] Phon e Number [facility] [address] CENTER (ABNORMAL) LD (Lactate Dehydrogenase) (02/19/2019 10:37 AM CDT) [facility] gist Method Time Signature Lactate 827 (H) 122 - 222 02/19/2019 Dehydrogenase U/L 11:43 AM CDT (LD), S Specimen Anatomical Collection Method Collection Time Receive d Time (Source) Location / / Volume Laterality Blood (Blood, 02/19/2019 10:37 02/19/2019 Venous) AM CDT 11:00 AM CDT Janusz Ardon LAB BLOOD NON ADD-ON Performing Organization Address City/State/ZIP Code Phon e Number [facility] - 200 [place] [address] [facility] (ABNORMAL) Comprehensive Metabolic Panel (02/19/2019 [...] >=60 02/19/2019 Black/ mL/min/BSA 11:43 AM CDT Slovak Comment: ----ADDITIONAL INFORMATION---- Estimated GFR calculated using [...] Address City/State/ZIP Code Phon e Number [facility] - 200 [place] [address] [facility] (ABNORMAL) Morphology Evaluation (Special Smear) (02/19/2019 10:37 AM CDT) [facility] Method Time Signature Neutrophilic Segs 67 50 [...] Address City/State/ZIP Code Phon e Number [facility] - 200 [place] [address] [facility] (ABNORMAL) CBC with Differential, Blood (02/19/2019 10:37 AM CDT) [facility] Method Time Signature Hemoglobin 8.0 (L) 11.6 [...] Address City/State/ZIP Code Phon e Number [facility] - [address] [place], [place] [address] [facility] documented in this encounter Visit Diagnoses Diagnosis Myelofibrosis (HCC) - Primary documented in this encounter
--- OUTSIDE RECORDS SUMMARY | 2022-05-02 12:39 | XMS_ITS | Encounter Summary ---
:1970 Author Organization [facility] Address [address] [place] [address] Care Team Providers Name Role Phone Unavailable Primary Care Provider Unavailable Reason for Referral Outpatient (Routine) - Closed Specialty Diagnoses / Procedures Referred By Contact Refer red To Contact Hematology Oncology Janusz Govea [place] [facility] M.B.B.SZahraa [address] [place] [phone] Referral ID Status Reason Start Date Expiration Date Visits Requ ested Visits Authorized [id number] Closed 05/19/2020 05/19/2021 1 1 Scheduling Instructions At 10 am. Thank you. 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 - 05/19/2020 2:28 PM PARTS FINISHER Addended by: NUVIA RODRIGUEZ on: 06/20/2020 11:56 AM Modules accepted: Orders S FINISHER documented in this encounter Plan of Treatment Scheduled Referrals Name Type Priority Associated Order Schedule Diagnoses Hematology office Outpatient Referral Routine Exp ected: visit (clinic) 05/25/2020 (Approximate), Expires: 05/19/2023 documented as of this encounter Results Type and Screen (with reflex Antibody ID) (07/17/2020 9:41 AM PARTS FINISHER) [facility]™ Method Time Signature ABORh A Pos Not 07/17/2020 ETRM applicable 12:30 PM PARTS FINISHER Antibody Negative Negative 07/17/2020 ETRM Screen 12:38 PM PARTS FINISHER Type & Screen 07/20/2020 07/17/2020 ETRM Expiration 23:59 12:30 PM PARTS FINISHER Testing [place] DEFAULT 07/17/2020 ETRM Location 10:00 AM PARTS FINISHER Specimen Anatomical Collection Method Collection Time Receive d Time (Source) Location / / Volume Laterality Blood (Blood, 07/17/2020 9:41 AM 07/17/19 21 Venous) PARTS FINISHER 10:00 AM PARTS FINISHER Janusz AlexandraSZahraa LAB BLOOD BANK TEST ORDERABL ES Performing Organization Address City/State/ZIP Code Phon e Number [facility] - [address] [place], [place] [address] [facility] [place] [address] [facility] [address] Type and Screen (with reflex Antibody ID) (07/10/2020 6:47 AM PARTS FINISHER) [facility]™ Method Time Signature ABORh A Pos Not 07/10/2020 ETRM applicable 9:56 AM PARTS FINISHER Antibody Negative Negative 07/10/2020 ETRM Screen 9:13 AM PARTS FINISHER Type & Screen 07/13/2020 07/10/2020 ETRM Expiration 23:59 9:13 AM PARTS FINISHER Testing [place] DEFAULT 07/10/2020 ETRM Location 8:25 AM PARTS FINISHER Specimen Anatomical Collection Method Collection Time Receive d Time (Source) Location / / Volume Laterality Blood (Blood, 07/10/2020 6:47 AM 07/10/20 20 8:25 Venous) PARTS FINISHER AM PARTS FINISHER Janusz ArringtonBZahraaSZahraa LAB BLOOD BANK TEST ORDERABL ES Performing Organization Address City/State/ZIP Code Phon e Number [facility] - 200 [place], [place] [address] [facility] [place] [address] [address] Type and Screen (with reflex Antibody ID) (07/03/2020 7:46 AM PARTS FINISHER) [facility] gist Method Time Signature ABORh A Pos Not 07/03/2020 ETRM applicable 9:23 AM PARTS FINISHER Antibody Negative Negative 07/03/2020 ETRM Screen 9:35 AM PARTS FINISHER Type & Screen 07/06/2020 07/03/2020 ETRM Expiration 23:59 9:23 AM PARTS FINISHER Testing [place] DEFAULT 07/03/2020 ETRM Location 8:18 AM PARTS FINISHER Specimen Anatomical Collection Method Collection Time Receive d Time (Source) Location / / Volume Laterality Blood (Blood, 07/03/2020 7:46 AM 07/03/20 20 8:18 Venous) PARTS FINISHER AM PARTS FINISHER Janusz Holt.SZahraa LAB BLOOD BANK TEST ORDERABL ES Performing Organization Address City/[facility] Code Phon e Number [facility] - 200 [place], [place] [address] [facility] [place] [address] [facility] [address] [facility] Type and Screen (with reflex Antibody ID) (06/27/2020 8:00 AM PARTS FINISHER) [facility] gist Method Time Signature ABORh A Pos Not 06/27/2020 ETRM applicable 10:17 AM PARTS FINISHER Antibody Negative Negative 06/27/2020 ETRM Screen 10:29 AM PARTS FINISHER Type & Screen 06/30/2020 06/27/2020 ETRM Expiration 23:59 10:17 AM PARTS FINISHER Testing [place] DEFAULT 06/27/2020 ETRM Location 8:36 AM PARTS FINISHER Specimen Anatomical Collection Method Collection Time Receive d Time (Source) Location / / Volume Laterality Blood (Blood, 06/27/2020 8:00 AM 06/27/20 20 8:36 Venous) PARTS FINISHER AM PARTS FINISHER Janusz ArringtonB.SZahraa LAB BLOOD BANK TEST ORDERABL ES Performing Organization Address City/[facility] Code Phon e Number [facility] - 200 [place], [place] [address] [facility] [place] [address] [facility] [address] documented in this encounter Visit Diagnoses Diagnosis Myelofibrosis (HCC) - Primary documented in this encounter
--- OUTSIDE RECORDS SUMMARY | 2022-05-02 12:40 | XMS_ITS | Encounter Summary ---
:1970 Author Organization [place] Address [address] [place] [address] Care Team Providers Name Role Phone No Ref-Primary, Physician Primary Care Provider [phone] Candida Epps MD Unavailable Shala Bell [...] on filedocumented in this encounter Care Teams Commercial Food Instructor Relationship Specialty Start Date End Date No Ref-Primary, PCP - General 09/30/17 Physician Candida Epps MD MD Internal Medicine 01/15/19 [address] [address] [place] [address] Shala Bell, HELENE Specialty Care Hematology & Oncology 01/15/19 07/23/21 Coordinator documented as of this encounter
--- OUTSIDE RECORDS SUMMARY | 2022-05-02 12:40 | XMS_ITS | Encounter Summary ---
:1970 Author Organization [place] Address [address] [place] [address] Care Team Providers Name Role Phone No Ref-Primary, Physician Primary Care Provider [phone] Candida Epps MD Unavailable Shala Bell RN Unavailable Unavailable Boaz Garcia MD Unavailable Rodrick Turner MD Unavailable Encounter Details Date Type Department Care Team Description 10/26/2020 Infusion Therapy [facility] Dylon Cr Myelop roliferative Visit Cancer Center MD Chriss disorder (H) (Primary Dx) [facility] ONCOLOGY [facility] [address] [facility] [place] [address] [place], [place] [address] [place], [place] [phone] [address] (Work) [phone] Social History Tobacco Use Types Packs/Day Years [...] tissues documented in this encounter Care Teams Reservations Sales Supervisor Relationship Specialty Start Date End Date No Ref-Primary, PCP - General 09/30/17 Physician Candida Epps MD MD Internal Medicine 01/15/19 [address] [facility] [address] [place] [address] Shala Bell, RN Specialty Care Hematology & Oncology 01/15/19 07/23/21 Coordinator Boaz Garcia Assigned Surgical 05/05/20 01/25/21 MD [place] Provider [address] [facility] [address] [place] [address] Rodrick Turner MD Assigned Sleep Provider 05/05/20 01/06/[address] [facility] [address] [place] [address] documented as of this encounter
--- OUTSIDE RECORDS SUMMARY | 2022-05-02 12:40 | XMS_ITS | Encounter Summary ---
:1970 Author Organization [place] Address [address] [place] [address] Care Team Providers Name Role Phone No Ref-Primary, Physician Primary Care Provider [phone] Candida Epps MD Unavailable Shala Bell RN Unavailable Unavailable Boaz Garcia MD Unavailable Rodrick Turner MD Unavailable Encounter Details Date Type Department Care Team Description 10/20/2020 Orders Only [facility] Dylon Cr Myeloproli [facility] MD Chriss disorder (H) (Primary Dx) [facility] ONCOLOGY [facility] [address] [facility] [place] [address] [place], [place] [address] [place], [place] [phone] [address] (Work) [phone] Social History Tobacco Use Types Packs/Day Years [...] tissues documented in this encounter Care Teams Inward Toll Operator Relationship Specialty Start Date End Date No Ref-Primary, PCP - General 09/30/17 Physician Candida Epps MD MD Internal Medicine 01/15/19 420 [facility] [address] [place] [address] Shala Bell, RN Specialty Care Hematology & Oncology 01/15/19 07/23/21 Coordinator Boaz Garcia Assigned Surgical 05/05/20 01/25/21 MD Constantine Provider 420 [facility] [address] [place] [address] Rodrick Turner MD Assigned Sleep Provider 05/05/20 01/06/[address] [place] [address] [place] [address] documented as of this encounter
--- OUTSIDE RECORDS SUMMARY | 2022-05-02 12:40 | XMS_ITS | Encounter Summary ---
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 documented as of 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 Care Teams Fiberglass Finisher Relationship Specialty Start Date End Date No Ref-Primary, PCP - General 09/30/17 Physician Candida Epps MD MD Internal Medicine 01/15/[address] [address] Shala Bell, RN Specialty Care Hematology & Oncology 01/15/19 07/23/21 Coordinator Ronaldo Cheatham, Assigned Heart and 05/05/20 MD Vascular Provider 420 [facility] [address] [place] [address] Candida Epps MD Assigned Cancer Care 05/05/20 07/22/20 [facility] Provider [facility] [address] [place] [address] Boaz Garcia Assigned Surgical 05/05/20 01/25/21 MD Constantine Provider [address] [place] [address] 195 [place] [address] Rodrick Turner MD Assigned Sleep Provider 05/05/20 01/06/[address] [place] [address] [place] [address] documented as of this encounter
--- OUTSIDE RECORDS SUMMARY | 2022-05-02 12:40 | XMS_ITS | Encounter Summary ---
:1970 Author Organization [place] Address [address] [place] [address] Care Team Providers Name Role Phone No Ref-Primary, Physician Primary Care Provider [phone] Candida Epps MD Unavailable Shala Bell RN Unavailable Unavailable Boaz Garcia MD Unavailable Rodrick Turner MD Unavailable Encounter Details Date Type Department Care Team Description 09/12/2020 Orders Only [facility] Dylon Cr Myeloproli [facility] Cancer Center MD Chriss disorder (H) (Primary Dx) [facility] ON[facility]OGY [facility] [address] [facility] [place] [address] [place], [place] [address] [place], [place] [phone] [address] (Work) [phone] Social History Tobacco Use Types Packs/Day Years [...] tissues documented in this encounter Care Teams Metallurgical Engineering Teacher Relationship Specialty Start Date End Date No Ref-Primary, PCP - General 09/30/17 Physician Candida Epps MD MD Internal Medicine 01/15/19 420 [facility] [address] [place] [address] Shala Bell, RN Specialty Care Hematology & Oncology 01/15/19 07/23/21 Coordinator Boaz Garcia Assigned Surgical 05/05/20 01/25/21 MD Constantine Provider 420 [facility] 195 [place] [address] Rodrick Turner MD Assigned Sleep Provider 05/05/20 01/06/[address] [place] [address] [place] [address] documented as of this encounter
--- OUTSIDE RECORDS SUMMARY | 2022-05-02 12:40 | XMS_ITS | Encounter Summary ---
:1970 Author Organization [facility] Address [address] [place] [address] Care Team Providers Name Role Phone No Ref-Primary, Physician Primary Care Provider [phone] Candida Epps MD Unavailable Shala Bell RN Unavailable Unavailable Ronaldo jones MD Unavailable Candida Epps MD Unavailable Boaz Garcia MD Unavailable Rodrick Turner MD Unavailable Encounter Details Date Type Department Care Team Description 05/27/2020 [facility] Dylon Cr Myeloproli ferative Encounter [facility] Laboratory MD Chriss disorder (H) [address] [place], [place] [address] [place] [address] [address] [place], [place] [phone] [address] Social History Tobacco Use Types Packs/Day [...] with No / Unsure 05/27/2020 10:37 AM 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 documented as of this encounter Medications at Time of Discharge Medication Sig Dispensed Refills Start Date End Date oxyCODONE (ROXICODONE) 5 Take 1-2 tablets (5-10 30 tablet 0 08/28/2015 MG immediate release mg) by mouth every 6 tablet hours as needed for moderate to severe pain senna-docusate Take 1 tablet by mouth 60 tablet 1 6 (SENOKOT-S;PERICOLACE) 2 times daily 8.6-50 MG per tablet folic acid (FOLVITE) 1 MG 0 07/01/2019 tablet ibuprofen (ADVIL/MOTRIN) Take 200 mg by mouth 0 200 MG tablet every 6 hours as needed for mild pain (headaches) LORAZEPAM PO Take 0.5 mg by mouth 0 every 6 hours as needed for anxiety MORPHINE SULFATE PO Take 60 mg by mouth 2 0 times daily (Takes 15 mg extra BID if not working) Sodium Bicarbonate-Citric Take 1 tablet by mouth 0 Acid (VASYL-SELTZER HEARTBURN PO) sodium-potassium Take 1 tablet by mouth 0 bicarbonate-citric acid (VASYL-SELTZER GOLD) 4715-851-7266 MG TBEF solu-tab documented as of this encounter Plan of Treatment Not on filedocumented as of this encounter Procedures Procedure Name Priority Date/Time Associated Diagnosis Comme nts BLOOD COMPONENT Routine 05/27/2020 10:46 Myeloproliferative Re sults for this AM VIDEO GAME ENGINEER disorder (H) procedure are i n the results section. ABO/RH TYPE AND Routine 05/27/2020 10:46 Myeloproliferative Re sults for this SCREEN AM VIDEO GAME ENGINEER disorder (H) procedure are i n the results section. documented in this encounter Results Blood component (05/27/2020 10:46 AM [facility]) [facility] Method Time Signature Unit Number [id number] 05/27/2020 [facility] 11:[address] [facility] Blood Red Blood Cells 05/27/2020 [facility] Component LeukoReduced 11:27 AM [facility] Type Irradiated [facility] Division 00 05/27/2020 [facility] Number 11:[address] [facility] Status of Released to care 05/29/2020 [place] Unit unit 11:[address] [facility] Blood Product [id number] 05/27/2020 [facility] Code 11:[address] [facility] Unit Status ISS [facility] Specimen Anatomical Collection Method Collection Time Receive d Time (Source) Location / / Volume Laterality 05/27/2020 10:46 05/27/2020 AM VIDEO GAME ENGINEER 10:47 AM VIDEO GAME ENGINEER Dylon Cr MD LABORATORY Performing Organization Address City/[facility]/ZIP Code Phon e Number M [facility] [address] [place], [place] [address] [place] [address] [address] [place], [place] [address], [facility] [phone] ABO/Rh type and screen (05/27/2020 10:46 AM VIDEO GAME ENGINEER) [facility] gist Method Time Signature Units Ordered 1 05/29/2020 [place] 5:20 AM [facility] ABO A 05/27/2020 [facility] 11:26 AM [facility] RH(D) Pos [facility] Antibody Neg 05/27/2020 [place] Screen 11:26 AM [facility] Test Valid [place] 05/27/2020 [facility] Only At [facility] 11:27 AM [facility] Specimen 05/30/2020 05/27/2020 [place] Expires 11:27 AM [facility] Crossmatch Red Blood 05/29/2020 [place] Cells 5:20 AM [facility] Specimen Anatomical Collection Method Collection Time Receive d Time (Source) Location / / Volume Laterality Blood specimen 05/27/2020 10:46 0 (specimen) AM VIDEO GAME ENGINEER 10:47 AM VIDEO GAME ENGINEER Dylon Cr MD LAB - BLOOD BANK TEST ORDER Performing Organization Address City/[facility]/ZIP [facility] Phon e Number [facility] [address] [place], [place] [address] [facility] [address] [place], [place] [address], [facility] [phone] documented in this encounter 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 documented in this encounter Care Teams Senior Bi Architect Relationship Specialty Start Date End Date No Ref-Primary, PCP - General 09/30/17 Physician Candida Epps MD MD Internal Medicine 01/15/[address] [address] Shala Bell, RN Specialty Care Hematology & Oncology 01/15/19 07/23/21 Coordinator Ronaldo Cheatham, Assigned Heart and 05/05/20 MD Vascular Provider 420 [facility] [address] [place] [address] Candida Epps MD Assigned Cancer Care 05/05/20 07/22/20 [email or web address] Provider [facility] [address] [place] [address] Boaz Garcia Assigned Surgical 05/05/20 01/25/21 MD Constantine Provider 420 [facility] [address] [place] [address] Rodrick Turner MD Assigned Sleep Provider 05/05/20 01/06/[address] [place], [place] [address]E [facility] [address] [place], [place] [address] documented as of this encounter
--- OUTSIDE RECORDS SUMMARY | 2022-05-02 12:40 | XMS_ITS | Encounter Summary ---
:1970 Author Organization [facility] Address [address] [place] [address] Care Team Providers Name Role Phone No Ref-Primary, Physician Primary Care Provider [phone] Candida Epps MD Unavailable Shala Bell [...] on filedocumented in this encounter Care Teams Skein Yarn Dyer Helper Relationship Specialty Start Date End Date No Ref-Primary, PCP - General 09/30/17 Physician Candida Epps MD MD Internal Medicine 01/15/19 [address] [facility] [address] [place] [address] Shala Bell, HELENE Specialty Care Hematology & Oncology 01/15/19 07/23/21 Coordinator documented as of this encounter
--- OUTSIDE RECORDS SUMMARY | 2022-05-02 12:40 | XMS_ITS | Encounter Summary ---
:1970 Author Organization [facility] Address [address] [place] [address] Care Team Providers Name Role Phone No Ref-Primary, Physician Primary Care Provider [phone] aCndida Epps MD Unavailable Shala Bell RN Unavailable [...] with No / Unsure 05/29/2020 12:13 PM LEATHER REPAIRER someone who was confirmed or suspected to have Coronavirus / COVID-19? documented as of 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 Care Teams Wheel Truing Machine Tender Relationship Specialty Start Date End Date No Ref-Primary, PCP - General 09/30/17 Physician Candida Epps MD MD Internal Medicine 01/15/[address] [address] Shala Bell, RN Specialty Care Hematology & Oncology 01/15/19 07/23/21 Coordinator Ronaldo Cheatham, Assigned Heart and 05/05/20 MD Vascular Provider 420 [facility] [address] [place] [address] Candida Epps MD Assigned Cancer Care 05/05/20 07/22/20 [facility] Provider [facility] [address] [place] [address] Boaz Garcia Assigned Surgical 05/05/20 01/25/21 MD Constantine Provider [address] [place] [address] 195 [place] [address] Rodrick Turner MD Assigned Sleep Provider 05/05/20 01/06/[address] [place] [address] [place] [address] documented as of this encounter
--- OUTSIDE RECORDS SUMMARY | 2022-05-02 12:40 | XMS_ITS | Encounter Summary ---
:1970 Author Organization [facility] Address [address] [place] [address] Care Team Providers Name Role Phone No Ref-Primary, Physician Primary Care Provider [phone] Candida Epps MD Unavailable Shala Bell RN Unavailable Unavailable Reason for Visit Reason Comments Blood Transfusion 1 unit prbc Encounter Details Date Type Department Care Team Description 03/22/2020 Infusion Therapy [facility] Dylon Cr Myelop roliferative Visit Cancer Center MD Chriss disorder (H) (Primary Dx) [facility] ONCOLOGY [facility] Medical Ctr [address] [facility] [place] [address] [place], [place] [address] [address] [place], [place] [phone] (Work) [phone] Social History Tobacco Use Types Packs/Day Years [...] PRBC. Patient seen by provider today: No Mountain Services Manager present during visit today: Not Applicable. [...] tissues documented in this encounter Care Teams Crystal Growing Technician Relationship Specialty Start Date End Date No Ref-Primary, PCP - General 09/30/17 Physician Candida Epps MD MD Internal Medicine 01/15/19 420 [facility] [address] [place] [address] Shala Bell, HELENE Specialty Care Hematology & Oncology 01/15/19 07/23/21 Coordinator documented as of this encounter
--- OUTSIDE RECORDS SUMMARY | 2022-05-02 12:40 | XMS_ITS | Encounter Summary ---
:1970 Author Organization [facility] Address [address] [place] [address] Care Team Providers Name Role Phone No Ref-Primary, Physician Primary Care Provider Candida Epps MD Unavailable Shala Bell RN Unavailable Unavailable Ronaldo jones MD Unavailable Candida Epps MD Unavailable Boaz Garcia MD Unavailable Rodrick Turner MD Unavailable Reason for Visit Reason Comments Blood Transfusion 1 unit PRBC's Encounter Details Date Type Department Care Team Description 05/29/2020 Infusion Therapy [facility] Dylon Cr Myelop roliferative Visit Cancer Center MD Chriss disorder (H) (Primary Dx) [facility] ONCOLOGY [facility] Medical Ctr [address] [facility] [place] [address] [address] [place], [place] [address] [address] [place], [place] [phone] (Work) [phone] Social History Tobacco Use Types Packs/Day Years [...] with No / Unsure 05/29/2020 12:13 PM 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 documented as of this encounter Last Filed Vital Signs Vital Sign Reading Time Taken Comments Blood Pressure 118/72 05/29/2020 2:20 PM MOBILE PARAMEDICAL EXAMINER Pulse 63 05/29/2020 2:20 PM MOBILE PARAMEDICAL EXAMINER Temperature 36.4 ??C (97.6 ??F) 05/29/2020 2:20 PM MOBILE PARAMEDICAL EXAMINER Respiratory Rate 16 05/29/2020 2:20 PM MOBILE PARAMEDICAL EXAMINER Oxygen Saturation 98% 05/29/2020 1:09 PM MOBILE PARAMEDICAL EXAMINER Inhaled Oxygen Concentration - - Weight - - Height - - Body Mass Index - - documented in this encounter Progress Notes Aleyda Loera RN - 05/29/2020 12:30 PM CST Infusion Nursing Note: Jennifer Dobbs presents today for 1 unit of PRBC. Patient seen by provider today: No Chha present during visit today: Not Applicable. Note: [...] self. Departure Mode: Ambulatory. Aleyda Loera RN LE PARAMEDICAL EXAMINER documented in this encounter Plan of Treatment Not on filedocumented as of this encounter Procedures Procedure Name Priority Date/Time Associated Diagnosis Comme nts TRANSFUSE RED BLOOD Routine 05/29/2020 12:47 PM Myeloprolifera tive disorder CELL UNIT MOBILE PARAMEDICAL EXAMINER (H) documented in this encounter Results Transfuse red blood cell unit (05/29/2020 2:49 PM MOBILE PARAMEDICAL EXAMINER) Dylon Cr MD IP NURSING BLOOD ADMINISTRAT ON Transfuse red blood cell unit (05/29/2020 2:49 PM MOBILE PARAMEDICAL EXAMINER) Dylon Cr MD IP NURSING BLOOD ADMINISTRAT ON documented in this encounter Visit Diagnoses Diagnosis 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 documented in this encounter Care Teams Neonatal Intensive Care Nurse Relationship Specialty Start Date End Date No Ref-Primary, PCP - General 09/30/17 Physician Candida Epsp MD MD Internal Medicine 01/15/19 420 [facility] [address] [place] [address] Shala Bell, HELENE Specialty Care Hematology & Oncology 01/15/19 07/23/21 Coordinator Ronaldo Cheatham, Assigned Heart and 05/05/20 MD Vascular Provider 420 [facility] [address] [place] [address] Candida Epps MD Assigned Cancer Care 05/05/20 07/22/20 [facility] Provider [facility] [address] [place], [place] [address] Boaz Garcia Assigned Surgical 05/05/20 01/25/21 MD Constantine Provider 420 [facility] [address] [place] [address] Rodrick Turner MD Assigned Sleep Provider 05/05/20 01/06/[address] [place] [address] [place] [address] documented as of this encounter
--- OUTSIDE RECORDS SUMMARY | 2022-05-02 12:40 | XMS_ITS | Encounter Summary ---
:1970 Author Organization [facility] Address [address] [place] [address] Care Team Providers Name Role Phone No Ref-Primary, Physician Primary Care Provider [phone] Candida Epps MD Unavailable Shala Bell [...] on filedocumented in this encounter Care Teams Volunteer Recruiter Relationship Specialty Start Date End Date No Ref-Primary, PCP - General 09/30/17 Physician Candida Epps MD MD Internal Medicine 01/15/19 [address] [place] [address] [facility] [address] [place] [address] Shala Bell, HELENE Specialty Care Hematology & Oncology 01/15/19 07/23/21 Coordinator documented as of this encounter
--- OUTSIDE RECORDS SUMMARY | 2022-05-02 12:40 | XMS_ITS | Encounter Summary ---
:1970 Author Organization [facility] Address [address] [place] [address] Care Team Providers Name Role Phone No Ref-Primary, Physician Primary Care Provider [phone] Candida Epps MD Unavailable Shala Bell [...] on filedocumented in this encounter Care Teams Painting Manager Relationship Specialty Start Date End Date No Ref-Primary, PCP - General 09/30/17 Physician Candida Epps MD MD Internal Medicine 01/15/19 [address] [place] [address] [facility] [address] [place] [address] Shala Bell, HELENE Specialty Care Hematology & Oncology 01/15/19 07/23/21 Coordinator documented as of this encounter
--- OUTSIDE RECORDS SUMMARY | 2022-05-02 12:40 | XMS_ITS | Encounter Summary ---
:1970 Author Organization [place] Address [address] [place] [address] Care Team Providers Name Role Phone No Ref-Primary, Physician Primary Care Provider [phone] Candida Epps MD Unavailable Shala Bell RN Unavailable Unavailable Boaz Garcia MD Unavailable Rodrick Turner MD Unavailable Encounter Details Date Type Department Care Team Description 09/15/2020 Infusion Therapy [facility] Dylon Cr Myelop roliferative Visit Cancer Center MD Chriss disorder (H) (Primary Dx) [facility] ONCOLOGY [facility] Medical Ctr [address] [facility] [place] [address] [place], [place] [address] [place], [place] [phone] [phone] (Work) [phone] Social History Tobacco Use Types Packs/Day Years [...] tissues documented in this encounter Care Teams Wool Presser Relationship Specialty Start Date End Date No Ref-Primary, PCP - General 09/30/17 Physician Candida Epps MD MD Internal Medicine 01/15/19 420 [facility] [address] [place] [address] Shala Bell, RN Specialty Care Hematology & Oncology 01/15/19 07/23/21 Coordinator Boaz Garcia Assigned Surgical 05/05/20 01/25/21 MD Constantine Provider 420 [facility] [address] [place] [address] Rodrick Turner MD Assigned Sleep Provider 05/05/20 01/06/[address] [place] [address] [place] [address] documented as of this encounter
--- OUTSIDE RECORDS SUMMARY | 2022-05-02 12:41 | XMS_ITS | Encounter Summary ---
:1970 Author Organization [place] Address [address] [place] [address] Care Team Providers Name Role Phone No Ref-Primary, Physician Primary Care Provider [phone] Candida Epps MD Unavailable Shala Bell RN Unavailable Unavailable Encounter Details Date Type Department Care Team Description 10/31/2019 Hospital Encounter [facility] Dora Prado MD [address] [place], [place] [phone] [facility] Dylon Sánchez MD [place] [facility] [address] [place] [address] [place] [address] Dory Shaffer MD [facility] [address] [place] [address] [place] [address] [place] [address] [place] [address] Social History Tobacco Use Types [...] working) Sodium Bicarbonate-Citric Take 1 tablet by 0 Acid (VASYL-SELTZER mouth HEARTBURN PO) sodium-potassium Take 1 tablet by 0 bicarbonate-citric acid mouth (VASYL-SELTZER GOLD) [id number] MG TBEF solu-tab haemophilus B Inject 0.5 [...] Results Blood component (10/31/2019 11:10 AM CDT) [facility] Method Time Signature Unit Number [id number] 10/31/2019 [place] 12:59 PM [facility] Blood Red Blood Cells 10/31/2019 [place] Component LeukoReduced 12:59 PM [facility] Irradiated [facility] Division 00 10/31/2019 [place] Number 12:59 PM [facility] Status of Released to care 11/01/2019 [place] Unit unit 11:52 PM [facility] Blood Product [id number] 10/31/2019 [facility] Code 12:59 PM [facility] Unit Status ISS [facility] Specimen Anatomical Collection Method Collection Time Receive d Time (Source) Location / / Volume Laterality 10/31/2019 11:10 10/31/2019 AM CDT 12:12 PM CDT Dory Shaffer MD LABORATORY Performing Organization Address City/[facility]/ZIP Code Phon e Number M [facility] [address] [place], [place] [address] [facility] [address] [place] [address] [address], [facility] [phone] ABO/Rh type and screen (10/31/2019 11:10 AM CDT) [facility] Method Time Signature Units Ordered 1 10/31/2019 [place] 12:59 PM [facility] ABO A 10/31/2019 [place] 12:58 PM [facility] RH(D) Pos [facility] Antibody Neg 10/31/2019 [place] Screen 12:58 PM [facility] Test Valid [place] 10/31/2019 [facility] Only At [facility] 12:59 PM [facility] ER Specimen 11/03/2019 10/31/2019 [place] Expires 12:59 PM [facility] Crossmatch Red Blood 10/31/2019 [place] Cells 12:59 PM [facility] Specimen Anatomical Collection Method Collection Time Receive d Time (Source) Location / / Volume Laterality Blood specimen 10/31/2019 11:10 0 (specimen) AM CDT 12:12 PM CDT Dory Shaffer MD LAB - BLOOD BANK TEST ORDER Performing Organization Address [facility] Phon e Number M [facility] [address] [place], [place] [address] [facility] [address] [place], [place] [address] 7, [facility] [phone] documented in this encounter Visit Diagnoses Not on filedocumented in this encounter Care Teams Casting Wheel Operator Relationship Specialty Start Date End Date No Ref-Primary, PCP - General 09/30/17 Physician Candida Epps MD MD Internal Medicine 01/15/[address] [place] [address] Shala Bell, HELENE Specialty Care Hematology & Oncology 01/15/19 07/23/21 Coordinator documented as of this encounter
--- OUTSIDE RECORDS SUMMARY | 2022-05-02 12:41 | XMS_ITS | Encounter Summary ---
:1970 Author Organization [facility] Address [address] [place] [address] Care Team Providers Name Role Phone No Ref-Primary, Physician Primary Care Provider [phone] Candida Epps MD Unavailable Shala Bell RN Unavailable Unavailable Reason for Visit Reason Comments Blood Transfusion 2U PRBC Encounter Details Date Type Department Care Team Description 01/14/2020 Infusion Therapy [facility] Dylon Cr Myelop roliferative Visit Cancer Center MD Chriss disorder (H) (Primary Dx) [facility] ONCOLOGY [facility] Medical Ctr [address] [facility] [place] [address] [place], [place] [address] [address] [place], [place] [phone] (Work) [phone] Social History Tobacco Use Types Packs/Day Years [...] PRBC. Patient seen by provider today: No Hide Trimmer present during visit today: Not Applicable. Note: Pt c/o abd discomfort due to enlarged spleen. States this is a chronic pain/issue and she willtake prn Oxycodone when she gets home Pt's left ankle started to swell again (same as last transfusion on 12/31/19 -- see production stage manager note). Pt states she saw primary MD [...] consent signed 12/01/19. 5.3 on 01/09 at [place] [facility]. Post Infusion Assessment: Patient tolerated infusion without incident. Blood return noted pre and post infusion. Site patent and intact, free from redness, edema or discomfort. No evidence of extravasations. Access discontinued per protocol. Discharge Plan: Discharge instructions reviewed with: Patient. Patient and/or family verbalized understanding of discharge instructions and all questions answered. AVS to patient via [employer]. Patient will return PRN for next appointment. [...] type and screen (01/13/2020 4:00 PM CDT) [facility] Method Time Signature Units Ordered 2 01/13/2020 [place] 4:37 PM [facility] ABO A 01/13/2020 [place] 4:37 PM [facility] RH(D) Pos [facility] Antibody Neg 01/13/2020 [place] Screen 4:37 PM [facility] Test Valid [place] 01/13/2020 [facility] Only At [facility] 4:37 PM [facility] Specimen 01/16/2020 01/13/2020 [place] Expires 4:37 PM [facility] Crossmatch Red Blood 01/13/2020 [place] Cells 4:37 PM [facility] Specimen Anatomical Collection Method Collection Time Receive d Time (Source) Location / / Volume Laterality Blood specimen 01/13/2020 4:00 PM 020 4:02 (specimen) CDT PM CDT Dylon Cr MD LAB - BLOOD BANK TEST ORDER Performing Organization Address City/State/ZIP Code Phon e Number M [facility] [address] [place] [address] [facility] [address] [phone] documented in this encounter Visit Diagnoses 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
--- OUTSIDE RECORDS SUMMARY | 2022-05-02 12:41 | XMS_ITS | Encounter Summary ---
:1970 Author Organization [place] Address [address] [place] [address] Care Team Providers Name Role Phone No Ref-Primary, Physician Primary Care Provider [phone] Candida Epps MD Unavailable Shala Bell RN Unavailable Unavailable Encounter Details Date Type Department Care Team Description 12/30/2019 [facility] Dylon Cr Myeloproli ferative Encounter [facility] Laboratory MD Chriss disorder (H) [address] [place], [place] [address] [place] [address] [place], [place] [phone] [address] Social History Tobacco Use Types Packs/Day [...] by mouth 0 bicarbonate-citric acid (VASYL-SELTZER GOLD) [phone] MG TBEF solu-tab documented as of this [...] Results Blood component (12/30/2019 4:15 PM CDT) [facility] Method Time Signature Unit Number [id number] 12/30/2019 [place] 9:38 PM [facility] Blood Red Blood Cells 12/30/2019 [place] Component LeukoReduced 9:38 PM [facility] Irradiated HOSPITAL Division 00 12/30/2019 [facility] Number 9:38 PM [facility] Status of Released to care 12/31/2019 [place] Unit unit 11:52 PM [facility] Blood Product [id number] 12/30/2019 [place] Code 9:38 PM [facility] Unit Status ISS [facility] Specimen Anatomical Collection Method Collection Time Receive d Time (Source) Location / / Volume Laterality 12/30/2019 4:15 PM 0 4:16 CDT PM CDT Dylon Cr MD LABORATORY Performing Organization Address City/[facility]/ZIP Code Phon e Number M [facility] [address] [place], [place] [address] [facility] [address] [place], [place] [address], [facility] [phone] Blood component (12/30/2019 4:15 PM CDT) [facility] Method Time Signature Unit Number [id number] 12/30/2019 [facility] 9:38 PM [facility] Blood Red Blood Cells 12/30/2019 [place] Component LeukoReduced 9:38 PM [facility] I[facility]iated HOSPITAL Division 00 12/30/2019 [facility] Number 9:38 PM [facility] Status of Released to care 12/31/2019 [place] Unit unit 11:52 PM [facility] Blood Product [id number] 12/30/2019 [facility] Code 9:38 PM [facility] Unit Status ISS [facility] Specimen Anatomical Collection Method Collection Time Receive d Time (Source) Location / / Volume Laterality 12/30/2019 4:15 PM 0 4:16 CDT PM CDT Dylon Cr MD LABORATORY Performing Organization Address [facility]/ZIP Code Phon e Number M [facility] [address] [place], [place] [address] [facility] [address] [place], [place] [address], [facility] [phone] ABO/Rh type and screen (12/30/2019 4:15 PM CDT) [facility] Method Time Signature Units Ordered 2 12/30/2019 [facility] 5:39 PM [facility] ABO A 12/30/2019 [facility] 5:16 PM [facility] RH(D) Pos [facility] Antibody Neg 12/30/2019 [place] Screen 5:16 PM [facility] Test Valid [place] 12/30/2019 [facility] Only At [facility] 5:39 PM [facility] HOSPITAL Specimen 01/02/2020 12/30/2019 [facility] Expires 5:39 PM [facility] Crossmatch Red Blood 12/30/2019 [place] Cells 5:39 PM [facility] Specimen Anatomical Collection Method Collection Time Receive d Time (Source) Location / / Volume Laterality Blood specimen 12/30/2019 4:15 PM 020 4:16 (specimen) CDT PM CDT Dylon Cr MD LAB - BLOOD BANK TEST ORDER Performing Organization Address City/State/ZIP Code Phon e Number M [place] [address] [address] [place] [address] [facility] [address] [phone] documented in this encounter 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
--- OUTSIDE RECORDS SUMMARY | 2022-05-02 12:41 | XMS_ITS | Encounter Summary ---
:1970 Author Organization [place] Address [address] [place] [address] Care Team Providers Name Role Phone No Ref-Primary, Physician Primary Care Provider [phone] Candida Epps MD Unavailable Shala Bell RN Unavailable Unavailable Encounter Details Date Type Department Care Team Description 10/29/2019 Medical Correspondence [facility] Scan, BLOOD/PLATELET/PLAS Health Info Mgmt Non-Provider MA ORDER FO Srvcs [facility] [address] [place] [address] [place] [address] Social History Tobacco Use Types [...] on filedocumented in this encounter Care Teams Health Outcomes Liaison Relationship Specialty Start Date End Date No Ref-Primary, PCP - General 09/30/17 Physician Candida Epps MD MD Internal Medicine 01/15/19 [facility] [address] [place] [address] Shala Bell, HELENE Specialty Care Hematology & Oncology 01/15/19 07/23/21 Coordinator documented as of this encounter
--- OUTSIDE RECORDS SUMMARY | 2022-05-02 12:41 | XMS_ITS | Encounter Summary ---
:1970 Author Organization [place] Address [address] [place] [address] Care Team Providers Name Role Phone No Ref-Primary, Physician Primary Care Provider [phone] Candida Epps MD Unavailable Shala Bell [...] on filedocumented in this encounter Care Teams Rail Doweling Machine Operator Relationship Specialty Start Date End Date No Ref-Primary, PCP - General 09/30/17 Physician Candida Epps MD MD Internal Medicine 01/15/19 [address] [place] [address] [facility] 480 [place] [address] Shala Bell, HELENE Specialty Care Hematology & Oncology 01/15/19 07/23/21 Coordinator documented as of this encounter
--- OUTSIDE RECORDS SUMMARY | 2022-05-02 12:41 | XMS_ITS | Encounter Summary ---
:1970 Author Organization [place] Address [address] [place] [address] Care Team Providers Name Role Phone No Ref-Primary, Physician Primary Care Provider [phone] Candida Epps MD Unavailable Shala Bell [...] on filedocumented in this encounter Care Teams Pump Runner Relationship Specialty Start Date End Date No Ref-Primary, PCP - General 09/30/17 Physician Candida Epps MD MD Internal Medicine 01/15/19 [address] [place] [address] [facility] 480 [place] [address] Shala Bell, HELENE Specialty Care Hematology & Oncology 01/15/19 07/23/21 Coordinator documented as of this encounter
--- OUTSIDE RECORDS SUMMARY | 2022-05-02 12:41 | XMS_ITS | Encounter Summary ---
:1970 Author Organization [place] Address [address] [place] [address] Care Team Providers Name Role Phone No Ref-Primary, Physician Primary Care Provider [phone] Candida Epps MD Unavailable Shala Bell [...] on filedocumented in this encounter Care Teams Rugby League Footballer Relationship Specialty Start Date End Date No Ref-Primary, PCP - General 09/30/17 Physician Candida Epps MD MD Internal Medicine 01/15/19 [address] [place] [address] [facility] [address] [place] [address] Shala Bell, HELENE Specialty Care Hematology & Oncology 01/15/19 07/23/21 Coordinator documented as of this encounter
--- OUTSIDE RECORDS SUMMARY | 2022-05-02 12:41 | XMS_ITS | Encounter Summary ---
:1970 Author Organization [place] Address [address] [place] [address] Care Team Providers Name Role Phone No Ref-Primary, Physician Primary Care Provider [phone] Candida Epps MD Unavailable Shala Bell [...] on filedocumented in this encounter Care Teams Cane Pusher Relationship Specialty Start Date End Date No Ref-Primary, PCP - General 09/30/17 Physician Candida Epps MD MD Internal Medicine 01/15/[address] [place] [address] 480 [place] [address] Shala Bell, HELENE Specialty Care Hematology & Oncology 01/15/19 07/23/21 Coordinator documented as of this encounter
--- OUTSIDE RECORDS SUMMARY | 2022-05-02 12:41 | XMS_ITS | Encounter Summary ---
:1970 Author Organization [place] Address [address] [place] [address] Care Team Providers Name Role Phone No Ref-Primary, Physician Primary Care Provider [phone] Candida Epps MD Unavailable Shala Bell [...] on filedocumented in this encounter Care Teams Seam Presser Relationship Specialty Start Date End Date No Ref-Primary, PCP - General 09/30/17 Physician Candida Epps MD MD Internal Medicine 01/15/19 [address] [place] [address] [facility] [address] [place] [address] Shala Bell, HELENE Specialty Care Hematology & Oncology 01/15/19 07/23/21 Coordinator documented as of this encounter
--- OUTSIDE RECORDS SUMMARY | 2022-05-02 12:41 | XMS_ITS | Encounter Summary ---
:1970 Author Organization [place] Address [address] [place] [address] Care Team Providers Name Role Phone No Ref-Primary, Physician Primary Care Provider [phone] Candida Epps MD Unavailable Shala Bell [...] on filedocumented in this encounter Care Teams Investigative Shopper Relationship Specialty Start Date End Date No Ref-Primary, PCP - General 09/30/17 Physician Candida Epps MD MD Internal Medicine 01/15/19 [address] [place] [address] [facility] [address] [place] [address] Shala Bell, HELENE Specialty Care Hematology & Oncology 01/15/19 07/23/21 Coordinator documented as of this encounter
--- OUTSIDE RECORDS SUMMARY | 2022-05-02 12:41 | XMS_ITS | Encounter Summary ---
:1970 Author Organization [place] Address [address] [place] [address] Care Team Providers Name Role Phone No Ref-Primary, Physician Primary Care Provider [phone] Candida Epps MD Unavailable Shala Bell RN Unavailable Unavailable Encounter Details Date Type Department Care Team Description 01/13/2020 [facility] Dylon Cr Myeloproli ferative Encounter [facility] Laboratory MD Chriss disorder (H) [address], [place] [address] [place] [address] [address] [place], [place] [phone] [address] Social History Tobacco Use Types Packs/Day [...] by mouth 0 bicarbonate-citric acid (VASYL-SELTZER GOLD) [phone] MG TBEF solu-tab documented as of this [...] Results Blood component (01/13/2020 4:00 PM CDT) [facility] Method Time Signature Unit Number [id number] 01/13/2020 [place] 4:37 PM [facility] Blood Red Blood Cells 01/13/2020 [place] Component LeukoReduced 4:37 PM [facility] Irradiated HOSPITAL Division 00 01/13/2020 [facility] Number 4:37 PM [facility] Status of Released to care 01/14/2020 [place] Unit unit 11:52 PM [facility] Blood Product [id number] 01/13/2020 [place] Code 4:37 PM [facility] Unit Status ISS [facility] Specimen Anatomical Collection Method Collection Time Receive d Time (Source) Location / / Volume Laterality 01/13/2020 4:00 PM 0 4:02 CDT PM CDT Dylon Cr MD LABORATORY Performing Organization Address City/[facility]/ZIP Code Phon e Number M [facility] [address] [place], [place] [address] [facility] [address] [place], [place] [address], [facility] [phone] Blood component (01/13/2020 4:00 PM CDT) [facility] Method Time Signature Unit Number [id number] 01/13/2020 [facility] 4:37 PM [facility] Blood Red Blood Cells 01/13/2020 [place] Component LeukoReduced 4:37 PM [facility] Irradiated HOSPITAL Division 00 01/13/2020 [facility] Number 4:37 PM [facility] Status of Released to care 01/14/2020 [place] Unit unit 11:52 PM [facility] Blood Product [id number] 01/13/2020 [facility] Code 4:37 PM [facility] Unit Status ISS [facility] Specimen Anatomical Collection Method Collection Time Receive d Time (Source) Location / / Volume Laterality 01/13/2020 4:00 PM 0 4:02 CDT PM CDT Dylon Cr MD LABORATORY Performing Organization Address [facility]/ZIP Code Phon e Number M [facility] [address] [place], [place] [address] [facility] [address] [place], [place] [address], [facility] [phone] ABO/Rh type and screen (01/13/2020 4:00 PM CDT) [facility] Method Time Signature Units Ordered 2 01/13/2020 [facility] 4:37 PM [facility] ABO A 01/13/2020 [facility] 4:37 PM [facility] RH(D) Pos [facility] Antibody Neg 01/13/2020 [place] Screen 4:37 PM [facility] Test Valid [place] 01/13/2020 [facility] Only At [facility] 4:37 PM [facility] HOSPITAL Specimen 01/16/2020 01/13/2020 [facility] Expires 4:37 PM [facility] Crossmatch Red Blood 01/13/2020 [place] Cells 4:37 PM [facility] Specimen Anatomical Collection Method Collection Time Receive d Time (Source) Location / / Volume Laterality Blood specimen 01/13/2020 4:00 PM 020 4:02 (specimen) CDT PM CDT Dylon Cr MD LAB - BLOOD BANK TEST ORDER Performing Organization Address City/State/ZIP Code Phon e Number M [place] [address] [place] [address] [facility] [address] [phone] documented in this encounter 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
--- OUTSIDE RECORDS SUMMARY | 2022-05-02 12:41 | XMS_ITS | Encounter Summary ---
:1970 Author Organization [place] Address [address] [place] [address] Care Team Providers Name Role Phone No Ref-Primary, Physician Primary Care Provider [phone] Candida Epps MD Unavailable Shala Bell RN Unavailable Unavailable Reason for Visit Reason Comments Blood Transfusion 1 unit prbc Encounter Details Date Type Department Care Team Description 11/01/2019 Infusion Therapy [facility] Dylon Cr Myelop roliferative Visit Cancer Center MD Chriss disorder (H) (Primary Dx) [facility] ONCOLOGY [facility] Medical Ctr [address] [facility] [place] [address] [place], [place] [address] [place], [place] [phone] [address] (Work) [phone] Social History Tobacco Use Types Packs/Day Years [...] PRBC. Patient seen by provider today: No Consultant Dietitian present during visit today: Not Applicable. Note: [...] tissues documented in this encounter Care Teams Orange Picker Machine Operator Relationship Specialty Start Date End Date No Ref-Primary, PCP - General 09/30/17 Physician Candida Epps MD MD Internal Medicine 01/15/[address] [place] [address] Shala Bell, HELENE Specialty Care Hematology & Oncology 01/15/19 07/23/21 Coordinator documented as of this encounter
--- OUTSIDE RECORDS SUMMARY | 2022-05-02 12:41 | XMS_ITS | Encounter Summary ---
:1970 Author Organization [place] Address [address] [place] [address] Care Team Providers Name Role Phone No Ref-Primary, Physician Primary Care Provider [phone] Candida Epps MD Unavailable Shala Bell [...] on filedocumented in this encounter Care Teams Repair Mechanic Relationship Specialty Start Date End Date No Ref-Primary, PCP - General 09/30/17 Physician Candida Epps MD MD Internal Medicine 01/15/19 [address] [place] [address] [facility] 480 [place] [address] Shala Bell, HELENE Specialty Care Hematology & Oncology 01/15/19 07/23/21 Coordinator documented as of this encounter
--- OUTSIDE RECORDS SUMMARY | 2022-05-02 12:41 | XMS_ITS | Encounter Summary ---
:1970 Author Organization [place] Address [address] [place] [address] Care Team Providers Name Role Phone No Ref-Primary, Physician Primary Care Provider [phone] Candida Epps MD Unavailable Shala Bell RN Unavailable Unavailable Reason for Visit Reason Comments Blood Draw 1 unit prbc Encounter Details Date Type Department Care Team Description 01/20/2020 Infusion Therapy [facility] Dylon Cr Myelop roliferative Visit Cancer Center MD Chriss disorder (H) (Primary Dx) [facility] ONCOLOGY [facility] [address] [facility] [place] [address] [place], [place] [address] [place], [place] [phone] (Work) [phone] Social History Tobacco Use Types Packs/Day Years [...] prbc. Patient seen by provider today: No Barrel Tester present during visit today: Not Applicable. Note: [...] type and screen (01/19/2020 10:24 AM CDT) [facility] Method Time Signature Units Ordered 1 01/19/2020 [place] 11:29 AM T [facility] ABO A 01/19/2020 [place] 11:28 AM T [facility] RH(D) Pos [facility] Antibody Neg 01/19/2020 [place] Screen 11:28 AM [facility] Test Valid [place] 01/19/2020 [place] Only At [facility] 10:43 AM T [facility] HOSPITAL Specimen 01/22/2020 01/19/2020 [place] Expires 10:43 AM CDT [facility] Crossmatch Red Blood 01/19/2020 [place] Cells 11:29 AM [facility] Specimen Anatomical Collection Method Collection Time Receive d Time (Source) Location / / Volume Laterality Blood specimen 01/19/2020 10:24 0 (specimen) AM CDT 10:28 AM CDT Dylon Cr MD LAB - BLOOD BANK TEST ORDER Performing Organization Address City/State/ZIP Code Phon e Number M [place] [address] [address] [place], [place] [address] [facility] [address] [place], [place] [address] [place] [address] documented in this encounter Visit Diagnoses Diagnosis 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
--- OUTSIDE RECORDS SUMMARY | 2022-05-02 12:41 | XMS_ITS | Encounter Summary ---
:1970 Author Organization [place] Address [address] [place] [address] Care Team Providers Name Role Phone No Ref-Primary, Physician Primary Care Provider [phone] Candida Epps MD Unavailable Shala Bell RN Unavailable Unavailable Reason for Visit Reason Comments Blood Transfusion 2 units prbc Encounter Details Date Type Department Care Team Description 12/31/[address] [facility] Dylon Cr Myelop roliferative Visit Cancer Center MD Chriss disorder (H) (Primary Dx) [facility] ONCOLOGY [facility] Medical Ctr [address] [facility] [place] [address] [place], [place] [address] [place], [place] [phone] (Work) [phone] Social History Tobacco Use Types Packs/Day Years [...] prbc. Patient seen by provider today: No Ore Storage Drier present during visit today: Not Applicable. Note: had hgb drawn just prior to coming to appt. Today's result = 4.4. Was drawn at [facility], they areaware of results, per pt.. Did [...] type and screen (12/30/2019 4:15 PM CDT) [facility] Method Time Signature Units Ordered 2 12/30/2019 [place] 5:39 PM CDT [facility] ABO A 12/30/2019 [place] 5:16 PM CDT [facility] RH(D) Pos [facility] Antibody Neg 12/30/2019 [place] Screen 5:16 PM [facility] Test Valid [place] 12/30/2019 [place] Only At [facility] 5:39 PM T [facility] Specimen 01/02/2020 12/30/2019 [place] Expires 5:39 PM [facility] Crossmatch Red Blood 12/30/2019 [place] Cells 5:39 PM [facility] Specimen Anatomical Collection Method Collection Time Receive d Time (Source) Location / / Volume Laterality Blood specimen 12/30/2019 4:15 PM 020 4:16 (specimen) CDT PM CDT Dylon Cr MD LAB - BLOOD BANK TEST ORDER Performing Organization Address City/State/ZIP Code Phon e Number M 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
--- OUTSIDE RECORDS SUMMARY | 2022-05-02 12:41 | XMS_ITS | Encounter Summary ---
:1970 Author Organization [place] Address [address] [place] [address] Care Team Providers Name Role Phone No Ref-Primary, Physician Primary Care Provider [phone] Candida Epps MD Unavailable Shala Bell [...] on filedocumented in this encounter Care Teams Cushion Spring Assembler Relationship Specialty Start Date End Date No Ref-Primary, PCP - General 09/30/17 Physician Candida Epps MD MD Internal Medicine 01/15/19 [address] [place] [address] [facility] [address] [place] [address] Shala Bell, HELENE Specialty Care Hematology & Oncology 01/15/19 07/23/21 Coordinator documented as of this encounter
--- OUTSIDE RECORDS SUMMARY | 2022-05-02 12:41 | XMS_ITS | Encounter Summary ---
:1970 Author Organization [place] Address [address] [place] [address] Care Team Providers Name Role Phone No Ref-Primary, Physician Primary Care Provider [phone] Candida Epps MD Unavailable Shala Bell RN Unavailable Unavailable Reason for Visit Reason Comments Blood Transfusion 1 unit PRBC Encounter Details Date Type Department Care Team Description 12/01/2019 Infusion Therapy [facility] Dylon Cr Myelop roliferative Visit Cancer Center MD Chriss disorder (H) (Primary Dx) [facility] ONCOLOGY [facility]tr [address] [facility] [place] [address] [place], [place] [address] [place], [place] [phone] [address] (Work) [phone] Social History Tobacco Use Types Packs/Day Years [...] Sign Reading Time Taken Comments Blood Pressure 121/71 12/01/2019 12:15 PM CDT Pulse 80 12/01/2019 12:15 PM CDT Temperature 36.8 ??C (98.3 ??F) 12/01/2019 12:15 PM CDT Respiratory Rate 16 12/01/2019 12:15 PM CDT Oxygen Saturation 97% 12/01/2019 12:15 PM CDT Inhaled Oxygen Concentration - - Weight - - Height - - Body Mass Index - - documented in this encounter Progress Notes Bre Pickett RN - 12/01/2019 10:30 AM CDT Infusion Nursing Note: Jennifer Dobbs presents today for 1 unit PRBC. Patient seen by provider today: No Magnesium Mill Operator present during visit today: Not Applicable. Note: Hgb 6.7. Intravenous Access: Peripheral IV placed. Treatment Conditions: Blood transfusion consent signed 12/01/2019. Post Infusion Assessment: Patient tolerated transfusion without incident. Site patent and intact, free from redness, edema or discomfort. No evidence of extravasations. Access discontinued per protocol. Discharge Plan: AVS to patient via MYCHART. Patient discharged in stable condition accompanied by: self. Departure Mode: Ambulatory. 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
--- OUTSIDE RECORDS SUMMARY | 2022-05-02 12:41 | XMS_ITS | Encounter Summary ---
:1970 Author Organization [facility] Address [address] [place] [address] Care Team Providers Name Role Phone No Ref-Primary, Physician Primary Care Provider [phone] Candida Epps MD Unavailable Shala Bell [...] on filedocumented in this encounter Care Teams Batch Attendant Relationship Specialty Start Date End Date No Ref-Primary, PCP - General 09/30/17 Physician Candida Epps MD MD Internal Medicine 01/15/[address] [facility] [address] [place] [address] Shala Bell, HELENE Specialty Care Hematology & Oncology 01/15/19 07/23/21 Coordinator documented as of this encounter
--- OUTSIDE RECORDS SUMMARY | 2022-05-02 12:41 | XMS_ITS | Encounter Summary ---
:1970 Author Organization [place] Address [address] [place] [address] Care Team Providers Name Role Phone No Ref-Primary, Physician Primary Care Provider [phone] Candida Epps MD Unavailable Shala Bell [...] on filedocumented in this encounter Care Teams Repairer Wood Furniture Relationship Specialty Start Date End Date No Ref-Primary, PCP - General 09/30/17 Physician Candida Epps MD MD Internal Medicine 01/15/19 [address] [place] [address] [facility] [address] [place] [address] Shala Bell, HELENE Specialty Care Hematology & Oncology 01/15/19 07/23/21 Coordinator documented as of this encounter
--- OUTSIDE RECORDS SUMMARY | 2022-05-02 12:41 | XMS_ITS | Encounter Summary ---
:1970 Author Organization [address] [address] Care Team Providers Name Role Phone No Ref-Primary, Physician Primary Care Provider [phone] Candida Epps MD Unavailable Shala Bell RN Unavailable Unavailable Encounter Details Date Type Department Care Team Description 10/31/2019 Orders Only [facility] Dory Shaffer, Myeloproli ferative disorder Services - Cancer (H) (Primary Dx) Care Service Line [address] ONCOLOGY [address] [address] [place] [address] [place], [place] [id number] Social History Tobacco Use Types Packs/Day Years [...] tissues documented in this encounter Care Teams Campus Recruiting Internship Relationship Specialty Start Date End Date No Ref-Primary, PCP - General 09/30/17 Physician Candida Epps MD MD Internal Medicine 01/15/[address] [place] [address] Shala Bell RN Specialty Care Hematology & Oncology 01/15/19 07/23/21 Coordinator documented as of this encounter
--- OUTSIDE RECORDS SUMMARY | 2022-05-02 12:41 | XMS_ITS | Encounter Summary ---
:1970 Author Organization [place] Address [facility] [place] [address] Care Team Providers Name Role Phone No Ref-Primary, Physician Primary Care Provider [phone] Candida Epps MD Unavailable Shala Bell RN Unavailable Unavailable Encounter Details Date Type Department Care Team Description 12/30/2019 Medical Correspondence [facility] Scan, BLOOD/PLATELET/PLAS Health Info Mgmt Non-Provider [place] ORDER SO [facility] CANCER AND INFUSION [address] [place] [address] Social History Tobacco Use Types Packs/Day [...] on filedocumented in this encounter Care Teams Pumper Gager Apprentice Relationship Specialty Start Date End Date No Ref-Primary, PCP - General 09/30/17 Physician Candida Epps MD MD Internal Medicine 01/15/19 420 [facility] 480 [place] [address] Shala Bell RN Specialty Care Hematology & Oncology 01/15/19 07/23/21 Coordinator documented as of this encounter
--- OUTSIDE RECORDS SUMMARY | 2022-05-02 12:41 | XMS_ITS | Encounter Summary ---
:1970 Author Organization [facility] Address [address] [place] [address] Care Team Providers Name Role Phone No Ref-Primary, Physician Primary Care Provider [phone] Candida Epps MD Unavailable Shala Bell [...] on filedocumented in this encounter Care Teams Nut Former Relationship Specialty Start Date End Date No Ref-Primary, PCP - General 09/30/17 Physician Candida Epps MD MD Internal Medicine 01/15/19 [address] [place] [address] [facility] [address] [place] [address] Shala Bell, HELENE Specialty Care Hematology & Oncology 01/15/19 07/23/21 Coordinator documented as of this encounter
--- OUTSIDE RECORDS SUMMARY | 2022-05-02 12:41 | XMS_ITS | Encounter Summary ---
:1970 Author Organization [place] Address [address] [place] [address] Care Team Providers Name Role Phone No Ref-Primary, Physician Primary Care Provider [phone] Candida Epps MD Unavailable Shala Bell [...] on filedocumented in this encounter Care Teams Stitchdown Toe Former Relationship Specialty Start Date End Date No Ref-Primary, PCP - General 09/30/17 Physician Candida Epps MD MD Internal Medicine 01/15/19 [address] [place] [address] [facility] [address] [place] [address] Shala Bell, HELENE Specialty Care Hematology & Oncology 01/15/19 07/23/21 Coordinator documented as of this encounter
--- OUTSIDE RECORDS SUMMARY | 2022-05-02 12:41 | XMS_ITS | Encounter Summary ---
:1970 Author Organization [facility] Address [address] [facility] [place] [address] Care Team Providers Name Role Phone No Ref-Primary, Physician Primary Care Provider [phone] Candida Epps MD Unavailable Shala Bell RN Unavailable Unavailable Encounter Details Date Type Department Care Team Description 01/17/2020 Medical Correspondence [facility] Scan, BLOOD/PLATELET/PLAS Health Info Mgmt Non-Provider [place] ORDER FO [facility] [address] [place] [address] [place] [address] Social History Tobacco Use Types [...] filedocumented in this encounter Care Teams Security Systems Technician Relationship Specialty Start Date End Date No Ref-Primary, PCP - General 09/30/17 Physician Candida Epps MD MD Internal Medicine 01/15/19 [address] [facility] [address] [place] [address] Shala Bell, HELENE Specialty Care Hematology & Oncology 01/15/19 07/23/21 Coordinator documented as of this encounter
--- OUTSIDE RECORDS SUMMARY | 2022-05-02 12:41 | XMS_ITS | Encounter Summary ---
:1970 Author Organization [facility] Address [address] [place] [address] Care Team Providers Name Role Phone No Ref-Primary, Physician Primary Care Provider [phone] Candida Epps MD Unavailable Shala Bell RN Unavailable Unavailable Reason for Visit Reason Comments Blood Draw 1 unit PRBC's Encounter Details Date Type Department Care Team Description 02/18/[address] [facility] Dylon Cr Myelop roliferative Visit Cancer Center MD Chriss disorder (H) (Primary Dx) [facility] ONCOLOGY [facility] Medical Ctr [address] [facility][note 3] [place] [address] [place], [place] [address] [place], [place] [phone] [address] (Work) [phone] Social History Tobacco Use Types Packs/Day Years [...] PRBC's. Patient seen by provider today: No Retrieval Specialist present during visit today: Not Applicable. Note: [...] tissues documented in this encounter Care Teams Weatherization Field Technician Relationship Specialty Start Date End Date No Ref-Primary, PCP - General 09/30/17 Physician Candida Epps MD MD Internal Medicine 01/15/19 420 [facility] 480 [place] [address] Shala Bell, HELENE Specialty Care Hematology & Oncology 01/15/19 07/23/21 Coordinator documented as of this encounter
--- OUTSIDE RECORDS SUMMARY | 2022-05-02 12:41 | XMS_ITS | Encounter Summary ---
:1970 Author Organization [facility] Address [address] [place] [address] Care Team Providers Name Role Phone No Ref-Primary, Physician Primary Care Provider [phone] Candida Epps MD Unavailable Shala Bell RN Unavailable Unavailable Encounter Details Date Type Department Care Team Description 02/17/2020 [facility] Dylon Cr Myeloproli ferative Encounter [facility] MD Chriss disorder (H) [address] [place], [place] [address] [place] [address] [place], [place] [phone] [address] Social History Tobacco Use Types Packs/Day [...] by mouth 0 bicarbonate-citric acid (VASYL-SELTZER GOLD) [phone] MG TBEF solu-tab documented as of this [...] Results Blood component (02/17/2020 3:02 PM CDT) [facility] Method Time Signature Unit Number [id number] 02/17/2020 [place] 4:59 PM [facility] Blood Red Blood Cells 02/17/2020 [place] Component LeukoReduced 4:59 PM [facility] Irradiated HOSPITAL Division 00 02/17/2020 [facility] Number 4:59 PM [facility] Status of Released to care 02/18/2020 [place] Unit unit 11:52 PM [facility] Blood Product [id number] 02/17/2020 [facility] Code 4:59 PM [facility] Unit Status ISS [facility] Specimen Anatomical Collection Method Collection Time Receive d Time (Source) Location / / Volume Laterality 02/17/2020 3:02 PM 0 3:06 CDT PM CDT Dylon Cr MD LABORATORY Performing Organization Address City/State/ZIP Code Phon e Number M [facility] [address] [place], [place] [address] [facility] [address] [place], [place] [address], [facility] [phone] ABO/Rh type and screen (02/17/2020 3:02 PM CDT) [facility] gist Method Time Signature Units Ordered 1 02/17/2020 [place] 4:59 PM [facility] ABO A 02/17/2020 [place] 4:39 PM [facility] RH(D) Pos [facility] Antibody Neg 02/17/2020 [place] Screen 4:39 PM [facility] Test Valid [facility] 02/17/2020 [place] Only At [facility] 4:57 PM [facility] Specimen 02/20/2020 02/17/2020 [place] Expires 4:57 PM [facility] Crossmatch Red Blood 02/17/2020 [place] Cells 4:59 PM [facility] Specimen Anatomical Collection Method Collection Time Receive d Time (Source) Location / / Volume Laterality Blood specimen 02/17/2020 3:02 PM 020 3:06 (specimen) CDT PM CDT Dylon Cr MD LAB - BLOOD BANK TEST ORDER Performing Organization Address City/State/ZIP Code Phon e Number M [place] [address] [address] [place], [place] [address] [facility] [address] [place], [place] [address], [facility] [phone] documented in this encounter 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
--- OUTSIDE RECORDS SUMMARY | 2022-05-02 12:41 | XMS_ITS | Encounter Summary ---
:1970 Author Organization [facility] Address [address] [place] [address] Care Team Providers Name Role Phone No Ref-Primary, Physician Primary Care Provider [phone] Candida Epps MD Unavailable Shala Bell [...] on filedocumented in this encounter Care Teams Chemical Dependency Nurse Relationship Specialty Start Date End Date No Ref-Primary, PCP - General 09/30/17 Physician Candida Epps MD MD Internal Medicine 01/15/19 [address] [place] [address] [facility] 480 [place] [address] Shala Bell, HELENE Specialty Care Hematology & Oncology 01/15/19 07/23/21 Coordinator documented as of this encounter
[2022-05-02 12:42] LABS: Basophils Percent Auto 10.8 % (0.0-3.0); Eosinophils Percent Auto 0.6 % (0.0-7.0); Hematocrit 26.3 % (33.0-51.0); Immature Granulocytes Abs Auto 1.35 K/uL (0.00-0.30); Lymphocytes Percent Auto 36.5 % (20-44); Mean Corpuscular HGB Conc 29 gm/dL (32-36); Mean Corpuscular Hemoglobin 27 pg (26-34); Mean Corpuscular Volume 93 fL (80-100); Monocytes Percent Auto 11.3 % (0.0-11.0); Neutrophils Percent Auto 36.5 % (42.0-72.0); Platelet Count* 830 K/uL (140-440); RDW Coefficient of Variation % 31.3 % (11.5-15.5); Red Blood Count 2.82 m/uL (4.00-5.20)
--- OUTSIDE RECORDS SUMMARY | 2022-05-02 12:42 | XMS_ITS | Encounter Summary ---
:1970 Author Organization [facility] Address [address] [place] [address] Care Team Providers Name Role Phone No Ref-Primary, Physician Primary Care Provider [phone] Candida Epps MD Unavailable Shala Bell [...] filedocumented in this encounter Care Teams Button Decorating Machine Operator Relationship Specialty Start Date End Date No Ref-Primary, PCP - General 09/30/17 Physician Candida Epps MD MD Internal Medicine 01/15/[address] [place] [address] 480 [place] [address] Shala Bell, HELENE Specialty Care Hematology & Oncology 01/15/19 07/23/21 Coordinator documented as of this encounter
--- OUTSIDE RECORDS SUMMARY | 2022-05-02 12:42 | XMS_ITS | Encounter Summary ---
:1970 Author Organization [facility] Address [address] [place] [address] Care Team Providers Name Role Phone No Ref-Primary, Physician Primary Care Provider [phone] Candida Epps MD Unavailable Shala Bell RN Unavailable Unavailable Reason for Referral (Routine) - Closed Specialty Diagnoses / Procedures Referred By Contact Refer red To Contact Diagnoses Splenomegaly Amada Felix MD [address] [address] Referral ID Status Reason Start Date Expiration Date Visits Requ ested Visits Authorized [id number] Closed 07/29/2019 07/28/2020 1 1 EMS ADMINISTRATION ANALYST Reason for Visit Reason Comments RECHECK Splenectomy follow up. Encounter Details Date Type Department Care Team Description 07/29/2019 Office Visit [facility] General Boaz Garcia (Primary Surgery MD Constantine Dx) [address] [facility] [address] [place] [address] [address] [address] [phone] Social History Tobacco Use Types Packs/Day Years [...] Comments Blood Pressure 109/67 07/29/2019 9:51 AM SYSTEMS ADMINISTRATION ANALYST Pulse 87 07/29/2019 9:51 AM SYSTEMS ADMINISTRATION ANALYST Temperature 37.3 ??C (99.1 ??F) 07/29/2019 9:51 AM SYSTEMS ADMINISTRATION ANALYST Respiratory Rate - - Oxygen Saturation 98% 07/29/2019 9:51 AM SYSTEMS ADMINISTRATION ANALYST Inhaled Oxygen Concentration - - Weight 92.5 kg (203 lb 14.4 oz) 07/29/2019 9:51 AM SYSTEMS ADMINISTRATION ANALYST Height 169.5 cm (5' 6.75) 07/29/2019 9:51 AM SYSTEMS ADMINISTRATION ANALYST Body Mass Index 32.17 07/29/2019 9:51 AM SYSTEMS ADMINISTRATION ANALYST documented in this encounter Patient Instructions Patient [...] Preanesthesia Clinic (PAC) for H&P 3. Call [facility] at [phone] for scheduling for operation. 4. Clarify need for repeat echocardiogram with Cardiology (referral sent for follow up Dr. Cheatham) Please call during clinic hours Friday through Friday 8:00a - 4:00p if you have questions or you cancontact us via Academize at anytime. General Surgery Call Center: [phone] Metallographer: [phone] Please call the hospital at [phone] to speak with our operator specialist communications MDs if you have urgent needs after [...] leaving completely satisfied with your care experience. 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 Per patient's human resources temp/oncologist, transfusion dependence likely mostly due to s [...] but will pursue this H&P with her human resources temp/oncologist - Pursue appropriate splenectomy vaccinations, also through heme/onc Orders Placed This Encounter Procedures ??? Follow-Up with Gunsmith Apprentice Physician Attestation I, Boaz Garcia, saw and [...] prepared by: Benja Baron, MS3, [employer], who served as ascribe in the preparation of this note. EMS ADMINISTRATION ANALYST documented in this encounter Nursing Notes Isa Luis, MARINE TECHNICIAN - 07/29/2019 10:00 AM CST Chief Complaint Patient presents with ??? RECHECK Splenectomy follow up. Vitals: 07/29/19 0951 BP: 109/67 BP Location: Left arm Patient Position: Sitting Cuff Size: Adult Large Pulse: 87 Temp: 99.1 ??F (37.3 ??C) TempSrc: Oral SpO2: 98% Weight: 92.5 kg (203 lb 14.4 oz) Height: 1.695 m (5' 6.75) Body mass index is 32.17 kg/m??. Isa Jiang CMA EMS ADMINISTRATION ANALYST Sulema Hess - 07/29/2019 10:00 AM CST This patient is having open splenectomy by Dr. Garcia. Call [phone] Brett Dela Cruz to confirm surgery date Call [phone] to schedule your pre-operative history and physical with our PAC clinic. EMS ADMINISTRATION ANALYST documented in this encounter Plan of Treatment Scheduled Referrals Name Type Priority Associated Diagnoses Order S chedule Follow-Up with Referral Routine Splenomegaly Expected: Gunsmith Apprentice (Approximate), Expires: 2020 documented as of this encounter Visit Diagnoses Diagnosis Splenomegaly - Primary documented in this encounter Care Teams Dielectric Machine Operator Relationship Specialty Start Date End Date No Ref-Primary, PCP - General 09/30/17 Physician Candida Epps MD MD Internal Medicine 01/15/[address] [place] [address] Shala Bell, HELENE Specialty Care Hematology & Oncology 01/15/19 07/23/21 Coordinator documented as of this encounter
--- OUTSIDE RECORDS SUMMARY | 2022-05-02 12:42 | XMS_ITS | Encounter Summary ---
:1970 Author Organization [facility] Address [address] [place] [address] Care Team Providers Name Role Phone No Ref-Primary, Physician Primary Care Provider [phone] Candida Epps MD Unavailable Shala Bell [...] on filedocumented in this encounter Care Teams Software Licensing Specialist Relationship Specialty Start Date End Date No Ref-Primary, PCP - General 09/30/17 Physician Candida Epps MD MD Internal Medicine 01/15/[address] [place] [address] 480 [place] [address] Shala Bell, HELENE Specialty Care Hematology & Oncology 01/15/19 07/23/21 Coordinator documented as of this encounter
--- OUTSIDE RECORDS SUMMARY | 2022-05-02 12:42 | XMS_ITS | Encounter Summary ---
:1970 Author Organization [facility] Address [address] [place] [address] Care Team Providers Name Role Phone No Ref-Primary, Physician Primary Care Provider [phone] Candida Epps MD Unavailable Shala Bell [...] on filedocumented in this encounter Care Teams Ward Maid Relationship Specialty Start Date End Date No Ref-Primary, PCP - General 09/30/17 Physician Candida Epps MD MD Internal Medicine 01/15/[address] [place] [address] 480 [place] [address] Shala Bell, HELENE Specialty Care Hematology & Oncology 01/15/19 07/23/21 Coordinator documented as of this encounter
--- OUTSIDE RECORDS SUMMARY | 2022-05-02 12:42 | XMS_ITS | Encounter Summary ---
:1970 Author Organization [facility] Address [facility] [place] [address] Care Team Providers Name Role Phone No Ref-Primary, Physician Primary Care Provider [phone] Candida Epps MD Unavailable Shala Bell RN Unavailable Unavailable Reason for Visit Reason Comments Consult snores, mouth dryed out, tos s and turn because of uncomfortable Encounter Details Date Type Department Care Team Description 07/05/2019 Office Visit [facility] Nini Turner MD SANDEE (obstructive sleep apnea) (Primary D x); Sleep Center [address] Chronic respi ratory failure with hypoxia and hypercapnia (H) [address] [phone] Social History Tobacco Use Types Packs/Day Years [...] - - Pulse 87 07/05/2019 2:20 PM DEPARTMENT MGR Temperature - - Respiratory Rate - - Oxygen Saturation 97% 07/05/2019 2:20 PM DEPARTMENT MGR Inhaled Oxygen Concentration - - Weight 90.3 kg (199 lb) 07/05/2019 2:20 PM DEPARTMENT MGR Height 169.6 cm (5' 6.77) 07/05/2019 2:20 PM DEPARTMENT MGR Body Mass Index 31.38 07/05/2019 2:20 PM DEPARTMENT MGR documented in this encounter Patient Instructions Patient [...] is considered obese. More than two-thirds of Indian adults are considered overweight or obese. Being [...] employer, local community center, or [employer]athryn [employer]. RTMENT MGR documented in this encounter Progress Notes Nini Turner MD - 07/05/2019 2:00 PM CST Images from the original note were not included. [facility] Outpatient Sleep Medicine Consultation July [...] with sleep disruption from pain and dyspnea [place] sleepiness scale 12 insomnia severity scale 18 [...] No results found for: PH, PHARTERIAL, PO2, [id number], SAT, PCO2, HCO3, BASEEXCESS, TIFFANY, BEB No [...] spent with patient: 45 min >50% counseling RTMENT MGR documented in this encounter Plan of Treatment Not on filedocumented as of this encounter Visit Diagnoses Diagnosis SANDEE (obstructive sleep apnea) - Primary Obstructive sleep apnea (adult) (pediatr ic) Chronic respiratory failure with hypoxia and hypercapnia (H) documented in this encounter Care Teams Credentialing Assistant Relationship Specialty Start Date End Date No Ref-Primary, PCP - General 3/20/18 Physician Candida Epps MD MD Internal Medicine 01/15/[address] [place] [address] Shala Bell, HELENE Specialty Care Hematology & Oncology 01/15/19 07/23/21 Coordinator documented as of this encounter
--- OUTSIDE RECORDS SUMMARY | 2022-05-02 12:42 | XMS_ITS | Encounter Summary ---
:1970 Author Organization [place] Address [address] [place] [address] Care Team Providers Name Role Phone No Ref-Primary, Physician Primary Care Provider [phone] Candida Epps MD Unavailable Shala Bell RN Unavailable Unavailable Encounter Details Date Type Department Care Team Description 06/13/2019 [facility] Dylon Cr MD [place] ONCOLOGY [address] [facility] [address] [place] [address] En[address] [facility] India Sharp NP [place] ONCOLOG[place] HEMATOLOGY [address] [facility] 200 [place], [place] [id number] disorder (H) [address] [place] [phone] Social History Tobacco Use Types Packs/Day Years [...] 2 times daily 8.6-50 MG per tablet ibuprofen (ADVIL/MOTRIN) Take 200 mg by [...] 10:10 Myeloproliferative Re sults for this AM PATENT LAWYER disorder (H) procedure are i n the results section. BLOOD COMPONENT Routine 06/13/2019 10:10 Myeloproliferative Re sults for this AM PATENT LAWYER disorder (H) procedure are i n the results section. ABO/RH TYPE AND Routine 06/13/2019 10:10 Myeloproliferative Re sults for this SCREEN AM PATENT LAWYER disorder (H) procedure are i n the results section. documented in this encounter Results Blood component (06/13/2019 10:10 AM PATENT LAWYER) [facility] Method Time Signature Unit Number [id number] 06/13/2019 [facility] 1:39 PM [facility] Blood Red Blood Cells 06/13/2019 [facility] Component LeukoReduced 1:39 PM [facility] Irradiated HOSPITAL Division 00 06/13/2019 [facility] Number 1:39 PM [facility] Status of Released to care 06/14/2019 [facility] Unit unit 11:52 PM [facility] Blood Product [id number] 06/13/2019 [facility] Code 1:39 PM [facility] Unit Status ISS [facility] Specimen Anatomical Collection Method Collection Time Receive d Time (Source) Location / / Volume Laterality 06/13/2019 10:10 06/13/2019 AM PATENT LAWYER 10:14 AM PATENT LAWYER India Sharp NP LABORATORY Performing Organization Address City/State/ZIP Code Phon e Number M [place] [address] [address] [place] [address] [facility] [address] [place], [place] [address], [facility] [phone] Blood component (06/13/2019 10:10 AM PATENT LAWYER) [facility] Method Time Signature Unit Number [id number] 06/13/2019 [facility] 1:39 PM [facility] Blood Red Blood Cells 06/13/2019 [facility] Component LeukoReduced 1:39 PM [facility] Irradiated HOSPITAL Division 00 06/13/2019 [facility] Number 1:39 PM [facility] Status of Released to care 06/14/2019 [facility] Unit unit 11:52 PM [facility] Blood Product [id number] 06/13/2019 [facility] Code 1:39 PM [facility] Unit Status ISS [facility] Specimen Anatomical Collection Method Collection Time Receive d Time (Source) Location / / Volume Laterality 06/13/2019 10:10 06/13/2019 AM PATENT LAWYER 10:14 AM PATENT LAWYER India Sharp NP LABORATORY Performing Organization Address City/State/ZIP Code [facility] e Number [facility] [address] [place], [place] [address] [facility] [address] [place], [place] [address] [phone] ABO/Rh type and screen (06/13/2019 10:10 AM PATENT LAWYER) [facility] Method [place] Signature Units Ordered 2 06/13/2019 [facility] 11:17 AM [facility] ABO A 06/13/2019 [facility] 11:11 AM [facility] RH(D) Pos [facility] Antibody Neg 06/13/2019 [facility] Screen 11:11 AM [facility] Test Valid [place] 06/13/2019 [facility] Only At [facility] 11:17 AM [facility] Specimen 06/16/2019 06/13/2019 [facility] Expires 11:17 AM [facility] Crossmatch Red Blood 06/13/2019 [facility] Cells 11:17 AM [facility] Specimen Anatomical Collection Method Collection Time Receive d Time (Source) Location / / Volume Laterality Blood specimen 06/13/2019 10:10 9 (specimen) AM PATENT LAWYER 10:14 AM PATENT LAWYER India Sharp PIERCING MILL OPERATOR LAB - BLOOD BANK TEST ORDER Performing Organization Address City/State/ZIP Code Phon e Number M [facility] [address] [place], [place] [address] [facility] [address] [place], [place] [address] [phone] documented in this encounter 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
--- OUTSIDE RECORDS SUMMARY | 2022-05-02 12:42 | XMS_ITS | Encounter Summary ---
:1970 Author Organization [place] Address [address] [place] [address] Care Team Providers Name Role Phone No Ref-Primary, Physician Primary Care Provider [phone] Candida Epps MD Unavailable Shala Bell [...] on filedocumented in this encounter Care Teams Cell Tender Relationship Specialty Start Date End Date No Ref-Primary, PCP - General 09/30/17 Physician Candida Epps MD MD Internal Medicine 01/15/[address] [place] [address] [address] [place] [address] Shala Bell, HELENE Specialty Care Hematology & Oncology 01/15/19 07/23/21 Coordinator documented as of this encounter
--- OUTSIDE RECORDS SUMMARY | 2022-05-02 12:42 | XMS_ITS | Encounter Summary ---
:1970 Author Organization [place] Address [address] [facility] [place] [address] Care Team Providers Name Role Phone No Ref-Primary, Physician Primary Care Provider [phone] Candida Epps MD Unavailable Shala Bell RN Unavailable Unavailable Encounter Details Date Type Department Care Team Description 07/02/2019 Orders Only [facility] Sleep Nasim Turner MD Hypoxemia (Primary Dx) [facility] [address] [place], [place] [address] [facility] [address] [place] [id number] Social History Tobacco Use Types Packs/Day Years [...] Primary documented in this encounter Care Teams Edi Coordinator Relationship Specialty Start Date End Date No Ref-Primary, PCP - General 09/30/17 Physician Candida Epps MD MD Internal Medicine 01/15/[address] [place] [address] 480 [place] [address] Shala Bell, HELENE Specialty Care Hematology & Oncology 01/15/19 07/23/21 Coordinator documented as of this encounter
--- OUTSIDE RECORDS SUMMARY | 2022-05-02 12:42 | XMS_ITS | Encounter Summary ---
:1970 Author Organization [place] Address [address] [place] [address] Care Team Providers Name Role Phone No Ref-Primary, Physician Primary Care Provider [phone] Candida Epps MD Unavailable Shala Bell RN Unavailable Unavailable Encounter Details Date Type Department Care Team Description 06/30/2019 Travel Social History Tobacco Use Types Packs/Day [...] on filedocumented in this encounter Care Teams Cable Puller Relationship Specialty Start Date End Date No Ref-Primary, PCP - General 09/30/17 Physician Candida Epps MD MD Internal Medicine 01/15/[address] [place] [address] [address] [place] [address] Shala Bell, HELENE Specialty Care Hematology & Oncology 01/15/19 07/23/21 Coordinator documented as of this encounter
--- OUTSIDE RECORDS SUMMARY | 2022-05-02 12:42 | XMS_ITS | Encounter Summary ---
:1970 Author Organization [place] Address [address] [place] [address] Care Team Providers Name Role Phone No Ref-Primary, Physician Primary Care Provider [phone] Candida Epps MD Unavailable Shala Bell RN Unavailable Unavailable Reason for Visit Reason Comments Blood Transfusion 1 unit prbc Encounter Details Date Type Department Care Team Description 06/29/2019 Infusion Therapy [facility] Dylon Cr Myelop roliferative Visit Cancer Center MD Chriss disorder (H) (Primary Dx) [facility] ONCOLOGY [facility] [address] [facility] [place] [address] [place], [place] [address] [place], [place] [phone] [address] (Work) [phone] Social History Tobacco Use Types Packs/Day Years [...] Comments Blood Pressure 91/43 06/29/2019 3:20 PM HIDE AND SKIN PROCESSING WORKER Pulse 94 06/29/2019 1:57 PM HIDE AND SKIN PROCESSING WORKER Temperature 37.1 ??C (98.8 ??F) 06/29/2019 3:20 PM HIDE AND SKIN PROCESSING WORKER Respiratory Rate 18 06/29/2019 1:57 PM HIDE AND SKIN PROCESSING WORKER Oxygen Saturation 100% 06/29/2019 3:20 PM HIDE AND SKIN PROCESSING WORKER Inhaled Oxygen Concentration - - Weight - - Height - - Body Mass Index - - documented in this encounter Progress Notes Bre Mosher RN - 06/29/2019 1:30 PM CST Infusion Nursing Note: Jennifer Dobbs presents today for 1 unit PRBC. Patient seen by provider today: No Manager Trade present during visit today: Not Applicable. Note: [...] . Departure Mode: Ambulatory. 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
--- OUTSIDE RECORDS SUMMARY | 2022-05-02 12:42 | XMS_ITS | Encounter Summary ---
:1970 Author Organization [place] Address [address] [place] [address] Care Team Providers Name Role Phone No Ref-Primary, Physician Primary Care Provider [phone] Candida Epps MD Unavailable Shala Bell RN Unavailable Unavailable Encounter Details Date Type Department Care Team Description 08/23/2019 [facility] Dylon Cr Myeloproli ferative Encounter [facility] Laboratory MD Chriss disorder (H) [address] [place] [address] [place] [address] [place] [address] [place], [place] [phone] [address] Social History Tobacco Use Types Packs/Day [...] by 0 bicarbonate-citric acid mouth (VASYL-SELTZER GOLD) 9877-170-8904 MG TBEF solu-tab haemophilus B Inject 0.5 [...] 9:48 Myeloproliferative Res ults for this AM WRAPPER CASER disorder (H) procedure are i n the results section. BLOOD COMPONENT Routine 08/23/2019 9:48 Myeloproliferative Res ults for this AM WRAPPER CASER disorder (H) procedure are i n the results section. ABO/RH TYPE AND Routine 08/23/2019 9:48 Myeloproliferative Res ults for this SCREEN AM WRAPPER CASER disorder (H) procedure are i n the results section. documented in this encounter Results Blood component (08/23/2019 9:48 AM WRAPPER CASER) [facility] Method Time Signature Unit Number [id number] 08/23/2019 [facility] 10:41 AM [facility] Blood Red Blood Cells 08/23/2019 [facility] Component LeukoReduced 10:41 AM [facility] Type Irradiated [facility] HOSPITAL Division 00 08/23/2019 [facility] Number 10:41 AM [facility] Status of Released to care 08/25/2019 [place] Unit unit 11:52 PM [facility] Blood Product [id number] 08/23/2019 [facility] Code 10:41 AM [facility] Unit Status ISS [facility] Specimen Anatomical Collection Method Collection Time Receive d Time (Source) Location / / Volume Laterality 08/23/2019 9:48 AM 0 9:49 WRAPPER CASER AM WRAPPER CASER Dylon Cr MD LABORATORY Performing Organization Address City/[facility]/ZIP Code Phon e Number M [facility] [address] [place], [place] [address] [facility] [address] [place], [place] [address], [facility] [phone] Blood component (08/23/2019 9:48 AM WRAPPER CASER) [facility] Method Time Signature Unit Number [id number] 08/23/2019 [facility] 10:41 AM [facility] Blood Red Blood Cells 08/23/2019 [facility] Component LeukoReduced 10:41 AM [facility] Irradiated [facility] HOSPITAL Division 00 08/23/2019 [facility] Number 10:41 AM [facility] Status of Released to care 08/25/2019 [facility] Unit unit 11:52 PM [facility] Blood Product [id number] 08/23/2019 [facility] Code 10:41 AM [facility] Unit Status ISS [facility] Specimen Anatomical Collection Method Collection Time Receive d Time (Source) Location / / Volume Laterality 08/23/2019 9:48 AM 0 9:49 WRAPPER CASER AM WRAPPER CASER Dylon Cr MD LABORATORY Performing Organization Address City/[facility]/ZIP Code Phon e Number M [facility] [address] [place], [place] [address] [facility] [address] [place], [place] [address], [facility] [phone] ABO/Rh type and screen (08/23/2019 9:48 AM WRAPPER CASER) [facility] Method Time Signature Units Ordered 2 08/23/2019 [facility] 10:39 AM [facility] ABO A 08/23/2019 [facility] 10:38 AM [facility] RH(D) Pos [facility] Antibody Neg 08/23/2019 [facility] Screen 10:38 AM [facility] Test Valid [place] 08/23/2019 [facility] Only At [facility] 10:39 AM [facility] HOSPITAL Specimen 08/26/2019 08/23/2019 [facility] Expires 10:39 AM [facility] Crossmatch Red Blood 08/23/2019 [place] Cells 10:39 AM WRAPPER CASER [facility] Specimen Anatomical Collection Method Collection Time Receive d Time (Source) Location / / Volume Laterality Blood specimen 08/23/2019 9:48 AM 020 9:49 (specimen) WRAPPER CASER AM WRAPPER CASER Dylon Cr MD LAB - BLOOD BANK TEST ORDER Performing Organization Address City/State/ZIP Code Phon e Number [place] [address] [address] [place] [address] [facility] [address] [phone] documented in this encounter 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
--- OUTSIDE RECORDS SUMMARY | 2022-05-02 12:42 | XMS_ITS | Encounter Summary ---
:1970 Author Organization [facility] Address [address] [place] [address] Care Team Providers Name Role Phone No Ref-Primary, Physician Primary Care Provider [phone] Candida Epps MD Unavailable Shala Bell RN Unavailable Unavailable Reason for Visit Reason Comments Generalized Weakness Encounter Details Date Type Department Care Team Description 07/16/2019 Emergency [facility] Gosen, Mary Ann Anemia , unspecified [facility] MD Jennifer type [address] [facility] EMERGENC[facility] [place]YS[facility], [place] [address] 5438 [facility] [phone] [place], [place] [address] (Wo rk) Social History [...] Comments Blood Pressure 119/58 07/16/2019 2:15 PM HUNTER TRAPPER Pulse 80 07/16/2019 2:15 PM HUNTER TRAPPER Temperature 36.7 ??C (98.1 ??F) 07/16/2019 1:33 PM HUNTER TRAPPER Respiratory Rate 18 07/16/2019 2:20 PM HUNTER TRAPPER Oxygen Saturation 98% 07/16/2019 2:30 PM HUNTER TRAPPER Inhaled Oxygen Concentration - - Weight 88.5 kg (195 lb) 07/16/2019 9:59 AM HUNTER TRAPPER Height - - Body Mass Index 30.75 07/05/2019 2:20 PM HUNTER TRAPPER documented in this encounter Discharge Instructions Discharge InstructionsMary Ann Hobson MD - 07/16/2019 1:37 PM HUNTER TRAPPER Return immediately for worsening or recurrent symptoms ER TRAPPER documented in this encounter Medications at Time [...] and ambulated to lobby with steady gait. ER TRAPPER Sonia Carbajal RN - 07/16/2019 9:58 AM CST Pt was at oncology clinic this morning, hemoglobin was 4.9 and has received transfusions in the past for this, I am SOB and weak. VSS and ABC's intact. ER TRAPPER Mary Ann Hobson MD - 07/16/2019 9:52 [...] above 7. She usually goes to the [facility] center for this, however, there were not any opening available today therefore her oncologist sent her to the emergency department for a transfusion. The patient denies fever or new vomiting or diarrhea. Allergies: Latex Medications: Lorazepam Morphine Sulfate Senokot-S;Pericolace Vasyl-[place] Oxycodone Past Medical History: Myelofibrosis Myeloproliferative disorder [...] observations and the provider's statements to me. [facility] EMERGENCY DEPARTMENT Mary Ann Hobson MD 07/16/19 1524 ER TRAPPER documented in this encounter Plan of Treatment Not on filedocumented as of this encounter Procedures Procedure Name Priority Date/Time Associated Diagnosis Comme nts TRANSFUSE RED BLOOD STAT 07/16/2019 1:20 PM CELL UNIT HUNTER TRAPPER TRANSFUSE RED BLOOD STAT 07/16/2019 11:45 AM CELL UNIT HUNTER TRAPPER CBC WITH PLATELETS STAT 07/16/2019 10:08 AM Re sults for this HUNTER TRAPPER procedure are i n the results section. BLOOD COMPONENT Routine 07/16/2019 10:07 AM Anemia, unspecifie d Results for this HUNTER TRAPPER type procedure are i n the results section. BLOOD COMPONENT Routine 07/16/2019 10:07 AM Anemia, unspecifie d Results for this HUNTER TRAPPER type procedure are i n the results section. ABO/RH TYPE AND STAT 07/16/2019 10:07 AM Resul ts for this SCREEN HUNTER TRAPPER procedure are i n the results section. documented in this encounter Results Transfuse red blood cell unit (07/16/2019 2:33 PM HUNTER TRAPPER) Mary Ann Hobson MD IP NURSING BLOOD ADMINISTRAT ON Transfuse red blood cell unit (07/16/2019 2:33 PM HUNTER TRAPPER) Mary Ann Hobson MD IP NURSING BLOOD ADMINISTRAT ON Transfuse red blood cell unit (07/16/2019 1:20 PM HUNTER TRAPPER) Mary Ann Hobson MD IP NURSING BLOOD ADMINISTRAT ON (ABNORMAL) CBC (platelets, no diff) (07/16/2019 10:08 AM HUNTER TRAPPER) P athologist Signature WBC 3.4 (L) 4.0 - 11.0 07/16/2019 [facility] 10e9/L 10:54 AM [facility] RBC Count 1.76 (L) 3.8 - 5.2 07/16/2019 [facility] 10e12/L 10:54 AM [facility] Hemoglobin 4.5 (LL) 11.7 - 15.7 07/16/2019 [facility] g/dL 10:54 AM [facility] Comment: This result has been called to BRITTNEE MATHUR(SHEA) by Domenic Alvarado on 07 16 2019 at 1053, and has been read back. Hematocrit 15.8 (L) 35.0 - 47.0 % 07/16/2019 10:[address] [facility] MCV 90 78 - 100 fl 07/16/2019 10:[address] [facility] MCH 25.6 (L) 26.5 - 33.0 pg 07/16/2019 10:54 AM [facility] MCHC 28.5 (L) 31.5 - 36.5 g/dL 07/16/2019 10:54 AM [facility] RDW 29.1 (H) 10.0 - 15.0 % 07/16/2019 10:54 AM [facility] Platelet Count 93 (L) 150 - 450 10e9/L 07/16/2019 10:[address] [facility] Specimen Anatomical Collection Method Collection Time Receive d Time (Source) Location / / Volume Laterality Blood specimen 07/16/2019 10:08 0 (specimen) AM HUNTER TRAPPER 10:26 AM HUNTER TRAPPER Mary Ann [place]son MD LAB - BLOOD ORDERABLES Performing Organization Address City/[facility]/ZIP Code Phon e Number [facility] [address] [place], [place] [address] [facility] [address] [place], [place] [address], [facility] [phone] Blood component (07/16/2019 10:07 AM HUNTER TRAPPER) [facility] gist Method Time Signature Unit Number [id number] 07/16/2019 [facility] 11:39 AM [facility] Blood Red Blood Cells 07/16/2019 [facility] Component LeukoReduced 11:39 AM [facility] Irradiated [facility] Division 00 07/16/2019 [facility] Number 11:39 AM [facility]OSPITAL Status of Released to care 07/16/2019 [facility] Unit unit 11:52 PM [facility] Blood Product [id number] 07/16/2019 [facility] Code 11:39 AM [facility]OSPITAL Unit Status ISS [facility] Specimen Anatomical Collection Method Collection Time Receive d Time (Source) Location / / Volume Laterality 07/16/2019 10:07 07/16/2019 AM HUNTER TRAPPER 10:27 AM HUNTER TRAPPER Mary Ann Hobson MD LABORATORY Performing Organization Address [facility] Phon e Number [facility] [address] [place], [place] [address] [facility] [address] [place], [place] [address] [facility] [phone] Blood component (07/16/2019 10:07 AM HUNTER TRAPPER) [facility] Method Time Signature Unit Number [id number] 07/16/2019 [facility] 11:39 AM [facility] Blood Red Blood Cells 07/16/2019 [facility] Component LeukoReduced 11:39 AM [facility] Type Irradiated [facility]OSP[facility] Division 00 07/16/2019 [facility] Number 11:39 AM [facility]OSPITAL Status of Released to care 07/16/2019 [facility] Unit unit 11:52 PM [facility] Blood Product [id number] 07/16/2019 [facility] Code 11:39 AM [facility] Unit Status ISS [facility] Specimen Anatomical Collection Method Collection Time Receive d Time (Source) Location / / Volume Laterality 07/16/2019 10:07 07/16/2019 AM HUNTER TRAPPER 10:27 AM HUNTER TRAPPER Mary Ann Hobson MD LABORATORY Performing Organization Address City/State/ZIP Code Phon e Number [place] [address] [address] [facility] [address] [address], [facility] [phone] ABO/Rh type and screen (07/16/2019 10:07 AM [facility]) [facility] Signature Units Ordered 2 07/16/2019 [facility] 11:11 AM [facility] ABO A 07/16/2019 [facility] 11:02 AM [facility] RH(D) Pos [facility] Antibody Neg 07/16/2019 [facility] Screen 11:02 AM [facility] Test Valid [facility] 07/16/2019 [facility] Only At Hospital 10:35 AM [facility] Specimen 07/19/2019 07/16/2019 [facility] Expires 10:35 AM [facility] Crossmatch Red Blood Cells 07/16/2019 [facility] 11:11 AM [facility] Blood Bank Delay in availability of Red Blood Cells called to 07/16/2019 [facility] Comment ANURADHA CARBAJAL (ERA) 1.3.20 @1025 BY Marycruz 10:35 AM [facility] Specimen Anatomical Collection Method Collection Time Receive d Time (Source) Location / / Volume Laterality Blood specimen 07/16/2019 10:07 0 (specimen) AM HUNTER TRAPPER 10:27 AM HUNTER TRAPPER Mary Ann Hobson MD LAB - BLOOD BANK TEST ORDER Performing Organization Address City/State/ZIP Code Phon e Number M [facility] [address] [place], [place] [address] [facility] [address] [place], [place] [address] [place] [address] documented in this encounter Visit Diagnoses Diagnosis Anemia, unspecified type documented in this encounter Care Teams Commercial Drone Software Developer Relationship Specialty Start Date End Date No Ref-Primary, PCP - General 09/30/17 Physician Candida Epps MD MD Internal Medicine 01/15/[address] [place] [address] Shala Bell RN Specialty Care Hematology & Oncology 01/15/19 07/23/21 Coordinator documented as of this encounter
--- OUTSIDE RECORDS SUMMARY | 2022-05-02 12:42 | XMS_ITS | Encounter Summary ---
:1970 Author Organization [facility] Address [facility] [place] [address] Care Team Providers Name Role Phone No Ref-Primary, Physician Primary Care Provider [phone] Candida Epps MD Unavailable Shala Bell RN Unavailable Unavailable Encounter Details Date Type Department Care Team Description 06/08/2019 Medical Correspondence [facility] Scan, BLOOD/PLATELET/PLAS Health Info Mgmt Non-Provider MA ORDER [facility] [address] [place] [address] Social History Tobacco Use Types [...] on filedocumented in this encounter Care Teams Services Rep Relationship Specialty Start Date End Date No Ref-Primary, PCP - General 09/30/17 Physician Candida Epps MD MD Internal Medicine 01/15/19 [address] [facility] [address] [place] [address] Shala Bell, HELENE Specialty Care Hematology & Oncology 01/15/19 07/23/21 Coordinator documented as of this encounter
--- OUTSIDE RECORDS SUMMARY | 2022-05-02 12:42 | XMS_ITS | Encounter Summary ---
:1970 Author Organization [facility] Address [address] [place] [address] Care Team Providers Name Role Phone No Ref-Primary, Physician Primary Care Provider [phone] Candida Epps MD Unavailable Shala Bell RN Unavailable Unavailable Reason for Visit Reason Comments Sleep Problem Encounter Details Date Type Department Care Team Description 07/02/2019 Office Visit [facility], sleep (Primary Dx); [facility] Hypoxemia [address] [place] [address] Social History Tobacco Use [...] They showed understanding by demonstrating it back. ER TEACHER documented in this encounter Miscellaneous Notes Addendum Note - Jaz Lazo - 07/02/2019 4:00 PM HELPER TEACHER Addended by: JAZ LAZO on: 09/06/2019 04:34 PM Modules accepted: Orders ER TEACHER documented in this encounter Plan of [...] Hypoxemia documented in this encounter Care Teams Sole Assessor Relationship Specialty Start Date End Date No Ref-Primary, PCP - General 09/30/17 Physician Candida Epps MD MD Internal Medicine 01/15/[address] [place] [address] Shala Bell, HELENE Specialty Care Hematology & Oncology 01/15/19 07/23/21 Coordinator documented as of this encounter
--- OUTSIDE RECORDS SUMMARY | 2022-05-02 12:42 | XMS_ITS | Encounter Summary ---
:1970 Author Organization [facility] Address [address] [place] [address] Care Team Providers Name Role Phone No Ref-Primary, Physician Primary Care Provider [phone] Candida Epps MD Unavailable Shala Bell [...] on filedocumented in this encounter Care Teams Seafood Harvester Relationship Specialty Start Date End Date No Ref-Primary, PCP - General 09/30/17 Physician Candida Epps MD MD Internal Medicine 01/15/[address] [place] [address] [address] [place] [address] Shala Bell, HELENE Specialty Care Hematology & Oncology 01/15/19 07/23/21 Coordinator documented as of this encounter
--- OUTSIDE RECORDS SUMMARY | 2022-05-02 12:42 | XMS_ITS | Encounter Summary ---
:1970 Author Organization [facility] Address [address] [place] [address] Care Team Providers Name Role Phone No Ref-Primary, Physician Primary Care Provider [phone] Candida Epps MD Unavailable Shala Bell RN Unavailable Unavailable Reason for Visit Reason Comments Infusion 2 units PRBC Encounter Details Date Type Department Care Team Description 08/25/2019 Infusion Therapy [facility] Dylon Cr Myelop roliferative Visit Cancer Center MD Chriss disorder (H) (Primary Dx) [facility] Medical Ctr [address] [facility] [place] [address] [place], [place] [address] [place], [place] [phone] [address] (Work) [phone] Social History Tobacco Use Types Packs/Day Years [...] Comments Blood Pressure 136/72 08/25/2019 12:00 PM PANTOGRAPH OPERATOR Pulse 74 08/25/2019 12:00 PM PANTOGRAPH OPERATOR Temperature 36.9 ??C (98.5 ??F) 08/25/2019 12:00 PM PANTOGRAPH OPERATOR Respiratory Rate 16 08/25/2019 12:00 PM PANTOGRAPH OPERATOR Oxygen Saturation 99% 08/25/2019 12:00 PM PANTOGRAPH OPERATOR Inhaled Oxygen Concentration - - Weight - [...] reaction won't show up for a few [id number]. These may include: ?? Fatigue ?? Dizziness ?? Vida or red urine Your clinic is: For informational purposes only. Not to replace the advice of your health care provider. Copyright ?? 2014 [employer]. All rights reserved. [employer] 164217 - Rev 01/26. For informational purposes only. Not to replace the advice of your health care provider. Copyright ?? 2018 [employer]. All rights reserved. OGRAPH OPERATOR documented in this encounter Progress Notes Michelle Potts RN - 08/25/2019 9:00 AM CST Infusion Nursing Note: Jennifer Dobbs presents today for 2 units PRBC. Patient seen by provider today: No Maternal Child Nurse present during visit today: Not Applicable. Note: [...] signed 12/14/18. Hgb 6.4 on 08/20 at [facility]. Post Infusion Assessment: Patient tolerated infusion [...] . Departure Mode: Ambulatory. Michelle Potts RN OGRAPH OPERATOR documented in this encounter Plan of Treatment Not on filedocumented as of this encounter Procedures Procedure Name Priority Date/Time Associated Diagnosis Comme nts TRANSFUSE RED BLOOD Routine 08/25/2019 10:45 AM Myeloprolifera tive disorder CELL UNIT PANTOGRAPH OPERATOR (H) TRANSFUSE RED BLOOD Routine 08/25/2019 9:15 AM Myeloproliferat otoniel disorder CELL UNIT PANTOGRAPH OPERATOR (H) documented in this encounter Results Transfuse red blood cell unit (08/25/2019 12:31 PM PANTOGRAPH OPERATOR) Dylon Cr MD IP NURSING BLOOD ADMINISTRAT ON Transfuse red blood cell unit (08/25/2019 12:31 PM PANTOGRAPH OPERATOR) Dylon Cr MD IP NURSING BLOOD ADMINISTRAT ON Transfuse red blood cell unit (08/25/2019 11:03 AM PANTOGRAPH OPERATOR) Dylon Cr MD IP NURSING BLOOD ADMINISTRAT ON ABO/Rh type and screen (08/23/2019 9:48 AM PANTOGRAPH OPERATOR) [facility] Method Time Signature Units Ordered 2 08/23/2019 [facility] 10:39 AM [facility] ABO A 08/23/2019 [facility] [place] 10:38 AM [facility] RH(D) Pos [facility] Antibody Neg 08/23/2019 [facility] [place] Screen 10:38 AM [facility] Test Valid [place] 08/23/2019 [facility] Only At [facility] 10:39 AM [facility] Specimen 08/26/2019 08/23/2019 [facility] [place] Expires 10:39 AM [facility] Crossmatch Red Blood 08/23/2019 [facility] [place] Cells 10:39 AM 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
--- OUTSIDE RECORDS SUMMARY | 2022-05-02 12:42 | XMS_ITS | Encounter Summary ---
:1970 Author Organization [facility] Address [address] [place] [address] Care Team Providers Name Role Phone No Ref-Primary, Physician Primary Care Provider [phone] Candida Epps MD Unavailable Shala Bell RN Unavailable Unavailable Reason for Visit Reason Comments Blood Transfusion 2 units PRBC's Encounter Details Date Type Department Care Team Description 06/14/2019 Infusion Therapy [facility] FENG Leyva disorder (H) (Primary Dx) [facility] ONCOLOGY [facility] Medical Ctr HEMATOLOGY [facility] [address] [address] [place] [address] [place] [address] [place] [address] Social History Tobacco Use [...] Comments Blood Pressure 124/61 06/14/2019 12:25 PM HIDE MILL WORKER Pulse 88 06/14/2019 12:25 PM HIDE MILL WORKER Temperature 36.8 ??C (98.2 ??F) 06/14/2019 12:25 PM HIDE MILL WORKER Respiratory Rate 16 06/14/2019 12:25 PM HIDE MILL WORKER Oxygen Saturation 97% 06/14/2019 11:15 AM HIDE MILL WORKER Inhaled Oxygen Concentration - - Weight - - Height - - Body Mass Index - - documented in this encounter Progress Notes Aleyda Loera RN - 06/14/2019 8:00 AM CST Infusion Nursing Note: Jennifer Dobbs presents today for 2 units PRBC's. Patient seen by provider today: No Rug Weaver present during visit today: Not Applicable. Note: [...] signed 12/14/18. Hemoglobin 5.5 on 06/08 per [facility] Hematology lab paperwork. Post Infusion Assessment: [...] . Departure Mode: Ambulatory. Aleyda Loera RN MILL WORKER documented in this encounter Plan of Treatment Not on filedocumented as of this encounter Procedures Procedure Name Priority Date/Time Associated Diagnosis Comme nts TRANSFUSE RED BLOOD Routine 06/14/2019 11:05 AM Myeloprolifera tive disorder CELL UNIT HIDE MILL WORKER (H) TRANSFUSE RED BLOOD Routine 06/14/2019 9:35 AM Myeloproliferat otoniel disorder CELL UNIT HIDE MILL WORKER (H) documented in this encounter Results Transfuse red blood cell unit (06/14/2019 12:26 PM HIDE MILL WORKER) [place] [facility] NP IP NURSING BLOOD ADMINISTRAT ON Transfuse red blood cell unit (06/14/2019 12:26 PM HIDE MILL WORKER) [place] Autumn Aron SUPERVISOR POST WAVE IP NURSING BLOOD ADMINISTRAT ON Transfuse red blood cell unit (06/14/2019 11:03 AM HIDE MILL WORKER) [place] [employer] SUPERVISOR POST WAVE IP NURSING BLOOD ADMINISTRAT ON ABO/Rh type and screen (06/13/2019 10:10 AM HIDE MILL WORKER) [facility] Method Time Signature Units Ordered 2 06/13/2019 [facility] 11:17 AM [facility] ABO A 06/13/2019 [facility] 11:11 AM [facility] RH(D) Pos [facility] Antibody Neg 06/13/2019 [facility] Screen 11:11 AM [facility] Test Valid [place] 06/13/2019 [facility] Only At [facility] 11:17 AM [facility] Specimen 06/16/2019 06/13/2019 [facility] Expires 11:17 AM [facility] Crossmatch Red Blood 06/13/2019 [facility] Cells 11:17 AM [facility] Specimen Anatomical Collection Method Collection Time Receive d Time (Source) Location / / Volume Laterality Blood specimen 06/13/2019 10:10 9 (specimen) AM HIDE MILL WORKER 10:14 AM HIDE MILL WORKER [employer] SUPERVISOR POST WAVE LAB - BLOOD BANK TEST ORDER Performing Organization Address City/State/ZIP Code Phon e Number M [place] [address] [address] [place] [address] [facility] [address] [phone] documented in this encounter Visit Diagnoses Diagnosis 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
--- OUTSIDE RECORDS SUMMARY | 2022-05-02 12:42 | XMS_ITS | Encounter Summary ---
:1970 Author Organization [place] Address [address] [place] [address] Care Team Providers Name Role Phone No Ref-Primary, Physician Primary Care Provider [phone] Candida Epps MD Unavailable Shala Bell [...] on filedocumented in this encounter Care Teams Nursing Specialist Relationship Specialty Start Date End Date No Ref-Primary, PCP - General 09/30/17 Physician Candida Epps MD MD Internal Medicine 01/15/[address] [place] [address] [address] [place] [address] Shala Bell, HELENE Specialty Care Hematology & Oncology 01/15/19 07/23/21 Coordinator documented as of this encounter
--- OUTSIDE RECORDS SUMMARY | 2022-05-02 12:42 | XMS_ITS | Encounter Summary ---
:1970 Author Organization [place] Address [address] [place] [address] Care Team Providers Name Role Phone No Ref-Primary, Physician Primary Care Provider [phone] Candida Epps MD Unavailable Shala Bell RN Unavailable Unavailable Reason for Visit Reason Comments Blood Transfusion 2U PRBC Encounter Details Date Type Department Care Team Description 08/04/2019 Infusion Therapy [facility] Dylon Cr Myelop roliferative Visit Cancer Center MD Chriss disorder (H) (Primary Dx) [facility] ONCOLOGY [facility] [address] [facility] [place] [address] [address] [place], [place] [address] [address] [address] [place], [place] [phone] [address] (Work) [phone] Social History Tobacco Use Types Packs/Day Years [...] Comments Blood Pressure 131/63 08/04/2019 11:14 AM MANAGER SOCIAL MEDIA Pulse 79 08/04/2019 11:14 AM MANAGER SOCIAL MEDIA Temperature 37 ??C (98.6 ??F) 08/04/2019 11:14 AM MANAGER SOCIAL MEDIA Respiratory Rate - - Oxygen Saturation 99% 08/04/2019 11:14 AM MANAGER SOCIAL MEDIA Inhaled Oxygen Concentration - - Weight - - Height - - Body Mass Index - - documented in this encounter Progress Notes Cathi Hernandez RN - 08/04/2019 8:00 AM CST Infusion Nursing Note: Jennifer Dobbs presents today for 2U PRBC. Patient seen by provider today: No Valve Seater Operator present during visit today: Not Applicable. [...] signed 12/14/18. Hgb 5.8 on 07/30/19 at [facility]. Post Infusion Assessment: Patient tolerated infusion without incident. Blood return noted pre and post infusion. Site patent and intact, free from redness, edema or discomfort. No evidence of extravasations. Access discontinued per protocol. Discharge Plan: Discharge instructions reviewed with: Patient and . Patient and/or family verbalized understanding of discharge instructions and all questions answered. AVS to patient via Yammer[employer]. Patient will return as needed for transfusion support Patient discharged in stable condition accompanied by: . Departure Mode: Ambulatory. Cathi Hernandez RN GER SOCIAL MEDIA documented in this encounter Plan of Treatment Not on filedocumented as of this encounter Procedures Procedure Name Priority Date/Time Associated Diagnosis Comme nts TRANSFUSE RED BLOOD Routine 08/04/2019 9:56 AM Myeloproliferat otoniel disorder CELL UNIT MANAGER SOCIAL MEDIA (H) TRANSFUSE RED BLOOD Routine 08/04/2019 8:24 AM Myeloproliferat otoniel disorder CELL UNIT MANAGER SOCIAL MEDIA (H) documented in this encounter Results Transfuse red blood cell unit (08/04/2019 11:32 AM MANAGER SOCIAL MEDIA) Dylon Cr MD IP NURSING BLOOD ADMINISTRAT ON Transfuse red blood cell unit (08/04/2019 11:32 AM MANAGER SOCIAL MEDIA) Dylon Cr MD IP NURSING BLOOD ADMINISTRAT ON Transfuse red blood cell unit (08/04/2019 9:47 AM MANAGER SOCIAL MEDIA) Dylon Cr MD IP NURSING BLOOD ADMINISTRAT ON documented in this encounter Visit Diagnoses Diagnosis 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
--- OUTSIDE RECORDS SUMMARY | 2022-05-02 12:42 | XMS_ITS | Encounter Summary ---
:1970 Author Organization [place] Address [address] [place] [address] Care Team Providers Name Role Phone No Ref-Primary, Physician Primary Care Provider [phone] Candida Epps MD Unavailable Shala Bell RN Unavailable Unavailable Encounter Details Date Type Department Care Team Description 06/28/2019 Hospital Encounter [facility] Dylon Cr in neoplastic [facility] [facility] MD Chriss disease (Primary Dx) [address] [place] [facility] [place], [place] [address] [address] [address] [place] [address] [place] [address] Social History Tobacco Use Types [...] Anemia in neoplasti c Results for this WOOD BOATBUILDER disease procedure are i n the results section. BLOOD COMPONENT Routine 06/28/2019 4:29 PM Anemia in neoplasti c Results for this WOOD BOATBUILDER disease procedure are i n the results section. ABO/RH TYPE AND Routine 06/28/2019 4:29 PM Anemia in neoplasti c Results for this SCREEN WOOD BOATBUILDER disease procedure are i n the results section. documented in this encounter Results Blood component (06/28/2019 4:29 PM WOOD BOATBUILDER) [facility] Syrinix Method Time Signature Unit Number [id number] 06/29/2019 [facility] 10:11 AM [facility] Blood Red Blood Cells 06/29/2019 [facility] Component LeukoReduced 10:11 AM [facility] Type Irradiated [facility] Division 00 06/29/2019 [facility] Number 10:11 AM [facility] Status of Released to care 06/29/2019 [facility] Unit unit 11:52 PM [facility] Blood Product [id number] 06/29/2019 [facility] Code 10:11 AM [facility] Unit Status ISS [facility] Specimen Anatomical Collection Method Collection Time Receive d Time (Source) Location / / Volume Laterality 06/28/2019 4:29 PM 9 4:30 WOOD BOATBUILDER PM WOOD BOATBUILDER Dylon Cr MD LABORATORY Performing Organization Address City/State/ZIP Code Phon e Number M [facility] [address] [place], [place] [address] [facility] [address] [place], [place] [address] [phone] Blood component (06/28/2019 4:29 PM WOOD BOATBUILDER) Patholo gist Method Time Signature Unit Number [id number] 06/29/2019 [facility] 10:11 AM [facility] Blood Red Blood Cells 06/29/2019 [facility] Component LeukoReduced 10:11 AM [facility] Type Irradiated [facility] Division 00 06/29/2019 [facility] Number 10:11 AM [facility] Status of Released to care 07/01/2019 [facility] Unit unit 11:52 PM [facility] Blood Product [id number] 06/29/2019 [facility] Code 10:11 AM [facility] Unit Status ISS [facility] Specimen Anatomical Collection Method Collection Time Receive d Time (Source) Location / / Volume Laterality 06/28/2019 4:29 PM 9 4:30 WOOD BOATBUILDER PM WOOD BOATBUILDER Dylon Cr MD LABORATORY Performing Organization Address City/[facility] Code Phon e Number [facility] [address] [place], [place] [address] [phone] [facility] [address] [phone] ABO/Rh type and screen (06/28/2019 4:29 PM WOOD BOATBUILDER) [facility] gist Method Time Signature Units Ordered 2 06/29/2019 [facility] 10:11 AM [facility] ABO A 06/28/2019 [facility] 5:05 PM [facility] RH(D) Pos [facility] Antibody Neg 06/28/2019 [facility] Screen 5:05 PM [facility] Test Valid [place] 06/28/2019 [facility] Only At [facility] 5:06 PM [facility] HOSPITAL Specimen 07/01/2019 06/28/2019 [facility] Expires 5:06 PM [facility] Crossmatch Red Blood 06/29/2019 [facility] Cells 10:11 AM 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
--- OUTSIDE RECORDS SUMMARY | 2022-05-02 12:42 | XMS_ITS | Encounter Summary ---
:1970 Author Organization [place] Address [address] [facility] [place] [address] Care Team Providers Name Role Phone No Ref-Primary, Physician Primary Care Provider [phone] Candida Epps MD Unavailable Shala Bell RN Unavailable Unavailable Encounter Details Date Type Department Care Team Description 08/20/2019 Medical Correspondence [facility] [place] Scan, BLOOD/PLATELET/PLAS Health Info Mgmt Non-Provider [place] ORDER FO [facility] [address] [place] [address] Social History Tobacco Use Types Packs/Day [...] on filedocumented in this encounter Care Teams Treatment Coordinator Relationship Specialty Start Date End Date No Ref-Primary, PCP - General 09/30/17 Physician Candida Epps MD MD Internal Medicine 01/15/19 420 [facility] 480 [place] [address] Shala Bell, RN Specialty Care Hematology & Oncology 01/15/19 07/23/21 Coordinator documented as of this encounter
--- OUTSIDE RECORDS SUMMARY | 2022-05-02 12:42 | XMS_ITS | Encounter Summary ---
:1970 Author Organization [place] Address [address] [place] [address] Care Team Providers Name Role Phone No Ref-Primary, Physician Primary Care Provider [phone] Candida Epps MD Unavailable Shala Bell [...] filedocumented in this encounter Care Teams Application Helper Relationship Specialty Start Date End Date No Ref-Primary, PCP - General 09/30/17 Physician Candida Epps MD MD Internal Medicine 01/15/[address] [place] [address] 480 [place] [address] Shala Bell, HELENE Specialty Care Hematology & Oncology 01/15/19 07/23/21 Coordinator documented as of this encounter
--- OUTSIDE RECORDS SUMMARY | 2022-05-02 12:42 | XMS_ITS | Encounter Summary ---
:1970 Author Organization [place] Address [address] [place] [address] Care Team Providers Name Role Phone No Ref-Primary, Physician Primary Care Provider [phone] Candida Epps MD Unavailable Shala Bell [...] on filedocumented in this encounter Care Teams Heel Curver Relationship Specialty Start Date End Date No Ref-Primary, PCP - General 09/30/17 Physician Candida Epps MD MD Internal Medicine 01/15/[address] [place] [address] 480 [place] [address] Shala Bell, HELENE Specialty Care Hematology & Oncology 01/15/19 07/23/21 Coordinator documented as of this encounter
--- OUTSIDE RECORDS SUMMARY | 2022-05-02 12:42 | XMS_ITS | Encounter Summary ---
:1970 Author Organization [place] Address [address] [place] [address] Care Team Providers Name Role Phone No Ref-Primary, Physician Primary Care Provider [phone] Candida Epps MD Unavailable Shala Bell [...] on filedocumented in this encounter Care Teams Taker Off Drying Kiln Relationship Specialty Start Date End Date No Ref-Primary, PCP - General 09/30/17 Physician Candida Epps MD MD Internal Medicine 01/15/[address] [place] [address] 480 [place] [address] Shala Bell, HELENE Specialty Care Hematology & Oncology 01/15/19 07/23/21 Coordinator documented as of this encounter
--- OUTSIDE RECORDS SUMMARY | 2022-05-02 12:42 | XMS_ITS | Encounter Summary ---
:1970 Author Organization [place] Address [address] [place] [address] Care Team Providers Name Role Phone No Ref-Primary, Physician Primary Care Provider [phone] Candida Epps MD Unavailable Shala Bell RN Unavailable Unavailable Ronaldo jones MD Unavailable Candida Epps MD Unavailable Boaz Garcia MD Unavailable Rodrick Turner MD Unavailable Reason for Visit Reason Onset Date Comments Appointment 07/02/2019 Encounter Details Date Type Department Care Team Description 07/02/2019 Telephone [facility] Barbara Theodore MD Appointment Center [address] [facility] 300 [address] [place] [address] [place] [address] [phone] Social History Tobacco Use Types Packs/Day Years [...] call): appointment Additional comments: per Zeinab from [place] [facility] , the patient needs to be seen sooner becausethe 'cardiac workup was expedited and the patient needs the test before being cleared for surgery. Roxane has faxed over notes in regards to the patient. Phone number to reach patient: Home number on file [phone] (home) Best Time: anytime Can we leave a detailed message on this number? YES DEVELOPER ARCHITECT documented in 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 Care Teams White Spooler Relationship Specialty Start Date End Date No Ref-Primary, PCP - General 09/30/17 Physician Candida Epps MD MD Internal Medicine 01/15/[address] [place] [address] 480 [place], [place] [address] Shala Bell, HELENE Specialty Care Hematology & Oncology 01/15/19 07/23/21 Coordinator Ronaldo Cheatham, Assigned Heart and 05/05/20 MD Vascular Provider 420 [facility] [address] [place] [address] Candida Epps MD Assigned Cancer Care 05/05/20 07/22/20 [facility] Provider [facility] [address] [place], [place] [id number] Boaz Garcia Assigned Surgical 05/05/20 01/25/21 MD [place] Provider [address] [place] [address] [facility] [address] [place], [place] [address] Rodrick Turner MD Assigned Sleep Provider 05/05/20 01/06/[address] [place] [address] [place] [address] documented as of this encounter
--- OUTSIDE RECORDS SUMMARY | 2022-05-02 12:42 | XMS_ITS | Encounter Summary ---
:1970 Author Organization [place] Address [address] [place] [address] Care Team Providers Name Role Phone No Ref-Primary, Physician Primary Care Provider [phone] Candida Epps MD Unavailable Shala Bell [...] filedocumented in this encounter Care Teams Head School Custodian Relationship Specialty Start Date End Date No Ref-Primary, PCP - General 09/30/17 Physician Candida Epps MD MD Internal Medicine 01/15/[address] [place] [address] 480 [place] [address] Shala Bell, HELENE Specialty Care Hematology & Oncology 01/15/19 07/23/21 Coordinator documented as of this encounter
--- OUTSIDE RECORDS SUMMARY | 2022-05-02 12:42 | XMS_ITS | Encounter Summary ---
:1970 Author Organization [place] Address [address] [place] [address] Care Team Providers Name Role Phone No Ref-Primary, Physician Primary Care Provider [phone] Candida Epps MD Unavailable Shala Bell [...] filedocumented in this encounter Care Teams Retail Management Trainee Relationship Specialty Start Date End Date No Ref-Primary, PCP - General 09/30/17 Physician Candida Epps MD MD Internal Medicine 01/15/[address] [place] [address] 480 [place] [address] Shala Bell, HELENE Specialty Care Hematology & Oncology 01/15/19 07/23/21 Coordinator documented as of this encounter
--- OUTSIDE RECORDS SUMMARY | 2022-05-02 12:42 | XMS_ITS | Encounter Summary ---
:1970 Author Organization [place] Address [address] [place] [address] Care Team Providers Name Role Phone No Ref-Primary, Physician Primary Care Provider [phone] Candida Epps MD Unavailable Shala Bell [...] filedocumented in this encounter Care Teams Supervisor Carpenters Relationship Specialty Start Date End Date No Ref-Primary, PCP - General 09/30/17 Physician Candida Epps MD MD Internal Medicine 01/15/[address] [place] [address] 480 [place] [address] Shala Bell, HELENE Specialty Care Hematology & Oncology 01/15/19 07/23/21 Coordinator documented as of this encounter
--- OUTSIDE RECORDS SUMMARY | 2022-05-02 12:42 | XMS_ITS | Encounter Summary ---
:1970 Author Organization [place] Address [address] [place] [address] Care Team Providers Name Role Phone No Ref-Primary, Physician Primary Care Provider [phone] Candida Epps MD Unavailable Shala Bell [...] on filedocumented in this encounter Care Teams Managing Member Relationship Specialty Start Date End Date No Ref-Primary, PCP - General 09/30/17 Physician Candida Epps MD MD Internal Medicine 01/15/[address] [place] [address] 480 [place] [address] Shala Bell, HELENE Specialty Care Hematology & Oncology 01/15/19 07/23/21 Coordinator documented as of this encounter
--- OUTSIDE RECORDS SUMMARY | 2022-05-02 12:42 | XMS_ITS | Encounter Summary ---
:1970 Author Organization [place] Address [address] [place] [address] Care Team Providers Name Role Phone No Ref-Primary, Physician Primary Care Provider [phone] Candida Epps MD Unavailable Shala Bell RN Unavailable Unavailable Encounter Details Date Type Department Care Team Description 08/03/2019 Hospital Encounter [facility] Dylon Cr MD [place] [facility] [address] [facility] 200 [place] [address] Formerly [facility] Boaz Garcia MD 420 [facility] 195 [place] [address] [address] [place] [address] Social History Tobacco Use Types [...] by 0 bicarbonate-citric acid mouth (VASYL-SELTZER GOLD) [phone] MG TBEF solu-tab haemophilus B Inject 0.5 [...] 5:15 PM Splenomegaly Result s for this DEMO EVENT SPECIALIST procedure are i n the results section. BLOOD COMPONENT Routine 08/03/2019 5:15 PM Splenomegaly Result s for this DEMO EVENT SPECIALIST procedure are i n the results section. ABO/RH TYPE AND Routine 08/03/2019 5:15 PM Splenomegaly Result s for this SCREEN DEMO EVENT SPECIALIST procedure are i n the results section. documented in this encounter Results Blood component (08/03/2019 5:15 PM DEMO EVENT SPECIALIST) [facility] gist Method Time Signature Unit Number [id number] 08/03/2019 [facility] 6:08 PM [facility] Blood Red Blood Cells 08/03/2019 [facility] Component LeukoReduced 6:08 PM [facility] Irradiated HOSPITAL Division 00 08/03/2019 [facility] Number 6:08 PM [facility] Status of Released to care 08/04/2019 [place] Unit unit 11:52 PM [facility] Blood Product [id number] 08/03/2019 [facility] Code 6:08 PM [facility] Unit Status ISS [facility] Specimen Anatomical Collection Method Collection Time Receive d Time (Source) Location / / Volume Laterality 08/03/2019 5:15 PM 0 5:18 DEMO EVENT SPECIALIST PM DEMO EVENT SPECIALIST Boaz Garcia MD LABORATORY Performing Organization Address City/State/ZIP Code Phon e Number M [facility] [address] [place], [place] [address] [facility] [address] [place], [place] [address], [facility] [phone] Blood component (08/03/2019 5:15 PM DEMO EVENT SPECIALIST) [facility] Local [employer] Method Time Signature Unit Number [id number] 08/03/2019 [facility] 6:08 PM [facility] Blood Red Blood Cells 08/03/2019 [facility] Component LeukoReduced 6:08 PM [facility] Irradiated HOSPITAL Division 00 08/03/2019 [facility] Number 6:08 PM [facility] Status of Released to care 08/04/2019 [facility] Unit unit 11:52 PM [facility] Blood Product [id number] 08/03/2019 [facility] Code 6:08 PM [facility] Unit Status ISS [facility] Specimen Anatomical Collection Method Collection Time Receive d Time (Source) Location / / Volume Laterality 08/03/2019 5:15 PM 0 5:18 DEMO EVENT SPECIALIST PM DEMO EVENT SPECIALIST Boaz Garcia MD LABORATORY Performing Organization Address City/State/ZIP Code Phon e Number M [facility] [address] [place], [place] [address] [facility] [address] [place], [place] [address], [facility] [phone] ABO/Rh Type and Screen (08/03/2019 5:15 PM DEMO EVENT SPECIALIST) [facility] Local [employer] Method Time Signature Units Ordered 2 08/03/2019 [facility] 6:08 PM [facility] ABO A 08/03/2019 [facility] 6:05 PM [facility] RH(D) Pos [facility] Antibody Neg 08/03/2019 [facility] Screen 6:05 PM [facility] Test Valid [place] 08/03/2019 [facility] Only At [facility] 6:08 PM [facility]OSPITAL Specimen 08/06/2019 08/03/2019 [place] Expires 6:08 PM [facility] Crossmatch Red Blood 08/03/2019 [place] Cells 6:08 PM [facility] Specimen Anatomical Collection Method Collection Time Receive d Time (Source) Location / / Volume Laterality Blood specimen 08/03/2019 5:15 PM 020 5:18 (specimen) DEMO EVENT SPECIALIST PM DEMO EVENT SPECIALIST Boaz Garcia MD LAB - BLOOD BANK TEST ORDER Performing Organization Address City/State/ZIP Code Phon e Number M [place] [address] [address] [place], [place] [address] [phone] [facility] [address] [phone] documented in this encounter Visit Diagnoses Diagnosis Splenomegaly documented in this encounter Care Teams Rn Manager Relationship Specialty Start Date End Date No Ref-Primary, PCP - General 09/30/17 Physician Candida Epsp MD MD Internal Medicine 01/15/[address] [place] [address] 480 [place] [address] Shala Bell RN Specialty Care Hematology & Oncology 01/15/19 07/23/21 Coordinator documented as of this encounter
--- OUTSIDE RECORDS SUMMARY | 2022-05-02 12:43 | XMS_ITS | Encounter Summary ---
:1970 Author Organization [facility] Address [address] [place] [address] Care Team Providers Name Role Phone No Ref-Primary, Physician Primary Care Provider [phone] Candida Epps MD Unavailable Shala Bell RN Unavailable Unavailable Reason for Visit Reason Comments Blood Transfusion 1 unit PRBC's Encounter Details Date Type Department Care Team Description 04/07/2019 Infusion Therapy [facility] Dylon Cr Myelop roliferative Visit Cancer Center MD Chriss disorder (H) (Primary Dx) [facility] ONCOLOGY [facility] [address] [facility] [place] [address] [place], [place] [address] [place], [place] [phone] [address] (Work) [phone] Social History Tobacco Use Types Packs/Day Years [...] Sign Reading Time Taken Comments Blood Pressure 114/46 04/07/2019 1:15 PM CDT Pulse 80 04/07/2019 1:15 PM CDT Temperature 37.2 ??C (98.9 ??F) 04/07/2019 1:15 PM CDT Respiratory Rate 16 04/07/2019 1:15 PM CDT Oxygen Saturation 98% 04/07/2019 1:15 PM CDT Inhaled Oxygen Concentration - - Weight - - Height - - Body Mass Index - - documented in this encounter Progress Notes Fatuma Amador, HELENE - 04/07/2019 11:30 AM CDT Infusion Nursing Note: Jennifer Dobbs presents today for 1 unit PRBC's. Patient seen by provider today: No Carriage Dogger present during visit today: Not Applicable. Note: Has c/o nausea/emesis and abdominal pain. No change in the pain. States she isn't feeling welltoday. Intravenous Access: Peripheral IV placed. Treatment Conditions: Blood transfusion consent signed 08/02/18. Post Infusion Assessment: Patient tolerated infusion without incident. Blood return noted pre and post infusion. Site patent and intact, free from redness, edema or discomfort. No evidence of extravasations. Access discontinued per protocol. Discharge Plan: Discharge instructions reviewed with: Patient. Patient discharged in stable condition accompanied by: . Departure Mode: Wheelchair. EMMA RITCHIE RN, RN h documented in this encounter Plan of Treatment Not on filedocumented as of this encounter Procedures Procedure Name Priority Date/Time Associated Diagnosis Comme nts TRANSFUSE RED BLOOD Routine 04/07/2019 11:50 AM Myeloprolifera tive disorder CELL UNIT CDT (H) documented in this encounter Results Transfuse red blood cell unit (04/07/2019 4:10 PM CDT) Dylon Cr MD IP NURSING BLOOD ADMINISTRAT ON Transfuse red blood cell unit (04/07/2019 4:10 PM CDT) Dylon Cr MD IP NURSING BLOOD ADMINISTRAT ON ABO/Rh type and screen (04/06/2019 2:29 PM CDT) [facility] Method Time Signature Units Ordered 1 04/06/2019 [place] 3:44 PM CDT [facility] ABO A 04/06/2019 [place] 3:43 PM CDT [facility] RH(D) Pos [facility] Antibody Neg 04/06/2019 [place] Screen 5:32 PM CDT [facility] Test Valid [place] 04/06/2019 [facility] Only At [facility] 3:44 PM CDT [facility] Specimen 04/09/2019 04/06/2019 [place] Expires 3:44 PM CDT [facility] Specimen Anatomical Collection Method Collection Time Receive d Time (Source) Location / / Volume Laterality Blood specimen 04/06/2019 2:29 PM 019 2:30 (specimen) CDT PM CDT Dylon Cr MD LAB - BLOOD BANK TEST ORDER Performing Organization Address City/State/ZIP Code Phon e Number [facility] [address] [address] [facility] [address] [place], [place] [address] [place] [address] documented in this encounter Visit Diagnoses 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
--- OUTSIDE RECORDS SUMMARY | 2022-05-02 12:43 | XMS_ITS | Encounter Summary ---
:1970 Author Organization [facility] Address [address] [place] [address] Care Team Providers Name Role Phone No Ref-Primary, Physician Primary Care Provider [phone] Candida Epps MD Unavailable Shala Bell RN Unavailable Unavailable Encounter Details Date Type Department Care Team Description 04/06/2019 [facility] Dylon Cr Myeloproli ferative Encounter [facility] Laboratory MD Chriss disorder (H) [address] [place] [address] [place] [address] [place] [address] [place], [place] [phone] [address] Social History Tobacco Use Types Packs/Day [...] Results Blood component (04/06/2019 2:29 PM CDT) [email or web address] Time Signature Unit Number [id number] [facility] Blood Red Blood Cells 04/06/2019 [place] Component LeukoReduced 6:07 PM [facility] Irradiated HOSPITAL Division 00 04/06/2019 [facility] Number 6:07 PM [facility] Status of Released to care 04/07/2019 [place] Unit unit 11:52 PM [facility] Blood Product [id number] 04/06/2019 [facility] Code 6:07 PM [facility] Unit Status ISS [facility] Specimen Anatomical Collection Method Collection Time Receive d Time (Source) Location / / Volume Laterality 04/06/2019 2:29 PM 9 2:30 CDT PM CDT Dylon Cr MD LABORATORY Performing Organization Address City/State/ZIP Code Phon e Number M [facility] [address] [place], [place] 55 [facility] [address] [place], [place] [address] [phone] ABO/Rh type and screen (04/06/2019 2:29 PM CDT) [facility] Method Time Signature Units Ordered 1 04/06/2019 [place] 3:44 PM [facility] ABO A 04/06/2019 [place] 3:43 PM [facility] RH(D) Pos [facility] Antibody Neg 04/06/2019 [place] Screen 5:32 PM [facility] Test Valid [place] 04/06/2019 [facility] Only At [facility] 3:44 PM [facility] Specimen 04/09/2019 04/06/2019 [facility] Expires 3:44 PM [facility] Specimen Anatomical Collection Method Collection Time Receive d Time (Source) Location / / Volume Laterality Blood specimen 04/06/2019 2:29 PM 019 2:30 (specimen) CDT PM CDT Dylon Cr MD LAB - BLOOD BANK TEST ORDER Performing Organization Address City/State/ZIP Code Phon e Number M [facility] [address] [address] [facility] [address] [phone] documented in this encounter 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
--- OUTSIDE RECORDS SUMMARY | 2022-05-02 12:43 | XMS_ITS | Encounter Summary ---
:1970 Author Organization [facility] Address [address] [place] [address] Care Team Providers Name Role Phone No Ref-Primary, Physician Primary Care Provider Candida Epps MD Unavailable Shala Bell RN Unavailable Unavailable Reason for Visit Reason Onset Date Comments Appointment 04/28/2019 Sleep Consult/Referr al Appointment 06/21/2019 Sleep Consult Encounter Details Date Type Department Care Team Description 04/28/2019 Telephone [facility] Ronaldo Cheatham, Eugenia ointment (Sleep Heart Clinic Dianne LISA Consult/Referral); [address] Appointment (Sleep [address] Consult) [place] [phone] (Wo rk) Social History Tobacco Use Types [...] before patient has surgery; lvm. Denita Clemente [facility] Adult Miner Placer/Surg Spec Health Care Assistant [phone] RESS INSPECTOR Telephone Encounter - Denita Clemente - 04/28/2019 2:29 PM CDT Customer Solutions Coordinator attempted to reach the patient, hue at number in patient file. Need to schedule sleep consultfor pili so the patient can have surgery. Sleep Consult can be done Bk, Sherice or [place]. Denita Clemente [facility] Adult Miner Placer/Surg Spec Health Care Assistant [phone] documented in 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 Care Teams Feed Manager Relationship Specialty Start Date End Date No Ref-Primary, PCP - General 09/30/17 Physician Candida Epps MD MD Internal Medicine 01/15/[address] [place] [address] Shala Bell, HELENE Specialty Care Hematology & Oncology 01/15/19 07/23/21 Coordinator documented as of this encounter
--- OUTSIDE RECORDS SUMMARY | 2022-05-02 12:43 | XMS_ITS | Encounter Summary ---
:1970 Author Organization [facility] Address [address] [place] [address] Care Team Providers Name Role Phone No Ref-Primary, Physician Primary Care Provider Candida Epps MD Unavailable Shala Bell RN Unavailable Unavailable Reason for Referral (Routine) - Closed Specialty Diagnoses / Procedures Referred By Contact Refer red To Contact Diagnoses Habitual snoring Hypersomnia Kaya Verduzco MD [address] [place], [place] [phone] 5 Referral ID Status Reason Start Date Expiration Date Visits Requ ested Visits Authorized [id number] Closed 03/10/2019 03/09/2020 1 1 Diagnostic Imaging NM (Routine) - Closed Specialty Diagnoses / Procedures Referred By Contact Refer red To Contact Radiology. Diagnoses SOB (shortness of breath) ROCHE (dyspnea on exertion) Kaya Verduzco MD Nuclear Medicine Procedures NM Lung Scan Ventilation and Perfusion [address] [place], [place] [id number] 5 [place] [address] Phone: Referral ID Status Reason Start Date Expiration Date Visits Requ ested Visits Authorized [id number] Closed 03/10/2019 03/09/2020 1 1 Diagnostic Imaging XR (Routine) - Closed Specialty Diagnoses / Procedures Referred By Contact Refer red To Contact Radiology. Diagnoses SOB (shortness of breath) ROCHE (dyspnea on exertion) Kaya Verduzco MD Xray Procedures X-ray Chest 2 vws* 420 [facility] 508 500 [place], [place] [address] [address] [place] [address] Phone: Referral ID Status Reason Start Date Expiration Date Visits Requ ested Visits Authorized [id number] Closed 03/10/2019 03/09/2020 1 1 Diagnostic Imaging NM (Routine) - Closed Specialty Diagnoses / Procedures Referred By Contact Refer red To Contact Cardiology Diagnoses Pre-operative cardiovascular examination SOB (shortness of breath) ROCHE (dyspnea on exertion) Kaya Verduzco MD Cardiac Services Procedures NM Lexiscan stress test (nuc card) [address] [facility] 50 500 [place], [place] [address] 5 [place] [address] Phone: Referral ID Status Reason Start Date Expiration Date Visits Requ ested Visits Authorized [id number] Closed 03/10/2019 03/09/2020 5 5 Reason for Visit Reason Comments New Patient New Pt Visit CV Cardio consult (Routine) - Closed Specialty Diagnoses / Procedures Referred By Contact Refer red To Contact Diagnoses Myeloproliferative disorder (H) Forrest Majano MD [facility] 420 [place], [place] [address] 5 Referral ID Status Reason Start Date Expiration Date Visits Requ ested Visits Authorized [id number] Closed 02/04/2019 02/04/2020 1 1 Encounter Details Date Type Department Care Team Description 03/10/2019 Office Visit [facility] Boaz Garcia MD [address] [address] Pre-operative cardiovascular examination (Primary Dx); Heart Clinic Kaya Smith MD [address] [facility] 508 [place], [place] [address] SOB (shortness of breath); [address] ROCHE (dyspnea on exertion); [place], [place] Habitual sno ring; [phone] Hypersomnia [phone] Social History Tobacco Use Types Packs/Day Years [...] at . Press Option #1 for the [facility], and then press Option #4 for nursing. We are encouraging the use of eCurvt to communicate with your HealthCare Provider Medication Changes: None. Recommendations: A referral was place to the Sleep Medicine Clinic. They should contact you to schedule, but if you do not hear from them, please call [phone] to schedule. Studies Ordered: At your earliest convenience. - Chest X-Ray - Nuclear Medicine Ventilation and Perfusion Scan - Pulmonary Function Testing - Nuclear Medicine Lexiscan Stress Test Prep for manpreet-nuc stress test: Report to the [facility] Waiting Room at the [facility]. The hospital is located at [address] [facility] on the [place] of the campus. [...] date and time, please contact scheduling at [phone]. Any other questions regarding testing can be referred to Amna. The results from today include: EKG. Please follow up: With Dr. Verduzco based on results of testing and your symptoms. Sincerely, Kaya Verduzco MD If you have an urgent need after hours (8:00 am to 4:30 pm) please call [phone] and ask for thecardiology fellow trade economist. documented in this encounter Progress Notes Kaya Verduzco MD - 03/10/2019 9:48 AM CDT Service Date: 03/10/2019 March 10, 2019 RE: Jennifer Mendez : 1970 Whom It May Concern: It was a pleasure participating in the care of your patient, Ms. Jennifer Mendez. As you know, she is [id number] lady whom I see today for dyspnea [...] a couple of medication trials at the [facility].Over the past 3 years, her spleen and [...] She quit smoking in 2012, had a 94-ojia-jbqo history. Denies alcohol use. She uses marijuana regularly for pain and anxiety. Father had heart trouble in his 60s. She does not know her cholesterol. She used to work at [email or web address]. Her is a hawthorne. CURRENT MEDICATIONS: Oxycodone, [...] ANGUS Name: JENNIFER MENDEZ MRN: [id number] Account: [id number] : 1970 Service Date: 03/10/2019 Document: [id number] Kaya Verduzco MD - 03/10/2019 9:00 AM CDT [id number] documented in this encounter Nursing Notes Clemente [...] findings. BO[place] JUAREZ MD Kaya Verduzco MD [facility] ORDERABLES X-ray Chest 2 vws* (03/12/2019 [...] only (Same Day) (03/10/2019 8:57 AM CDT) [facility] gist Method Time Signature Interpretation ECG [...] y documented in this encounter Care Teams Mail Messenger Relationship Specialty Start Date End Date No Ref-Primary, PCP - General 09/30/17 Physician Candida Epps MD MD Internal Medicine 01/15/[address] [place] [id number] Shala Bell, HELENE Specialty Care Hematology & Oncology 01/15/19 07/23/21 Coordinator documented as of this encounter
--- OUTSIDE RECORDS SUMMARY | 2022-05-02 12:43 | XMS_ITS | Encounter Summary ---
:1970 Author Organization [facility] Address [address] [place] [address] Care Team Providers Name Role Phone No Ref-Primary, Physician Primary Care Provider Candida Epps MD Unavailable Shala Bell RN Unavailable Unavailable Encounter Details Date Type Department Care Team Description 04/27/2019 Hospital Encounter [facility] Dylon Cr , [facility] [address] [place], [place] [address] [facility] [address] [facility] 200 [place], [place] [address] (Wo rk) Social History [...] on filedocumented in this encounter Care Teams Trawl Net Maker Relationship Specialty Start Date End Date No Ref-Primary, PCP - General 09/30/17 Physician Candida Epps MD MD Internal Medicine 01/15/19 420 [place] [address] Shala Bell, HELENE Specialty Care Hematology & Oncology 01/15/19 07/23/21 Coordinator documented as of this encounter
--- OUTSIDE RECORDS SUMMARY | 2022-05-02 12:43 | XMS_ITS | Encounter Summary ---
:1970 Author Organization [facility] Address [address] [place] [address] Care Team Providers Name Role Phone No Ref-Primary, Physician Primary Care Provider [phone] Candida Epps MD Unavailable Shala Bell RN Unavailable Unavailable Reason for Visit Diagnostic Imaging NM (Routine) - Closed Specialty Diagnoses / Procedures Referred By Contact Refer red To Contact Cardiology Diagnoses Pre-operative cardiovascular examination SOB (shortness of breath) ROCHE (dyspnea on exertion) Ronaldo Cheatham MD Cardiac Services Procedures NM Lexiscan stress test (nuc card) [address] [place] [address] 500 [place] [address] 7 [place] [address] Phone: Referral ID Status Reason Start Date Expiration Date Visits Requ ested Visits Authorized [id number] Closed 03/10/2019 03/09/2020 5 5 Encounter Details Date Type Department Care Team Description 2019 Hospital Encounter [facility] Ronaldo Cheatham Imaging MD 500 [facility] [address] [address] [place], [place] [phone] [address] (Wo rk) Social History Tobacco Use [...] on filedocumented in this encounter Care Teams Slotter Operator Relationship Specialty Start Date End Date No Ref-Primary, PCP - General 09/30/17 Physician Candida Epps MD MD Internal Medicine 01/15/[address] [place] [address] Shala Bell, HELENE Specialty Care Hematology & Oncology 01/15/19 07/23/21 Coordinator documented as of this encounter
--- OUTSIDE RECORDS SUMMARY | 2022-05-02 12:43 | XMS_ITS | Encounter Summary ---
:1970 Author Organization [facility] Address [address] [place] [address] Care Team Providers Name Role Phone No Ref-Primary, Physician Primary Care Provider [phone] Candida Epps MD Unavailable Shala Bell [...] GUIDE FOR PERICARDIOCENTESIS HC ECHO MYOCARD BX [facility] C INJECTION, PERFLUTREN LIPI D MICROSPHERES, PER ML HC STATISTIC IV PUSH SINGLE INITIAL SUBSTANCE [address] [place], [place] [address] Referral ID Status Reason Start Date Expiration Date Visits Requ ested Visits Authorized [id number] Closed 02/04/2019 02/04/2020 1 1 Encounter Details Date Type Department Care Team Description 03/10/2019 Ancillary [facility] Cardiac Boza Garcia Myeloprol iferative Procedure Services MD Constantine disorder (H) [address] 420 [facility] [address] [place], [place] [address] Social History Tobacco Use Types Packs/Day [...] AM CDT Narrative 03/10/2019 9:23 AM CDT [id number]^BIRDIE^[place]^[facility] Diagnostic and Treamtent-3rd Floor [address] [place] [address] Name: JENNIFER MENDEZ : 1970 Study Date: 03/10/2019 07:41 AM Age: 48 yrs Gender: Female Patient Location: [facility] Reason For Study: Myeloproliferative dis order [...] Procedure Note Inderjit Patterson MD - 03/10/2019 [id number]^BIRDIE^[place]^CONSTANTINE [facility] Diagnostic and Treamtent-3rd Floor [address] [place] [address] Name: JENNIFER MENDEZ : 1970 Study Date: 03/10/2019 07:41 AM Age: 48 yrs Gender: Female Patient Location: [facility] Reason For Study: Myeloproliferative dis order [...] tissues documented in this encounter Care Teams Oncology Specialist Relationship Specialty Start Date End Date No Ref-Primary, PCP - General 09/30/17 Physician Candida Epps MD MD Internal Medicine 01/15/[address] [place] [address] 714 [place] [address] Shala Bell, HELENE Specialty Care Hematology & Oncology 01/15/19 07/23/21 Coordinator documented as of this encounter
--- OUTSIDE RECORDS SUMMARY | 2022-05-02 12:43 | XMS_ITS | Encounter Summary ---
:1970 Author Organization [facility] Address [address] [place] [address] Care Team Providers Name Role Phone No Ref-Primary, Physician Primary Care Provider [phone] Candida Epps MD Unavailable Shala Bell [...] on filedocumented in this encounter Care Teams Padded Box Sewer Relationship Specialty Start Date End Date No Ref-Primary, PCP - General 09/30/17 Physician Candida Epps MD MD Internal Medicine 01/15/[address] [place] [address] 480 [place] [address] Shala Bell, HELENE Specialty Care Hematology & Oncology 01/15/19 07/23/21 Coordinator documented as of this encounter
--- OUTSIDE RECORDS SUMMARY | 2022-05-02 12:43 | XMS_ITS | Encounter Summary ---
:1970 Author Organization [place] Address [address] [place] [address] Care Team Providers Name Role Phone No Ref-Primary, Physician Primary Care Provider [phone] Candida Epps MD Unavailable Shala Bell RN Unavailable Unavailable Encounter Details Date Type Department Care Team Description 05/19/2019 Hospital Encounter [facility] Dylon Cr [place] Extended MD Recovery and Short [facility] ONCOLOGY [address] [place] [address] [place] [address] (Wo rk) Social History Tobacco [...] Comments Blood Pressure 137/75 05/19/2019 5:55 PM WOOD TYPE FINISHER Pulse 80 05/19/2019 3:10 PM WOOD TYPE FINISHER Temperature 36.3 ??C (97.4 ??F) 05/19/2019 5:55 PM WOOD TYPE FINISHER Respiratory Rate 16 05/19/2019 5:55 PM WOOD TYPE FINISHER Oxygen Saturation 100% 05/19/2019 5:55 PM WOOD TYPE FINISHER Inhaled Oxygen Concentration - - Weight - [...] hospital if hematoma increases or bleeding returns. TYPE FINISHER Plan of Care - Ebony Hare RN [...] 125 ml/hr. Pt tolerating well. Regular diet. TYPE FINISHER documented in this encounter Plan of Treatment Not on filedocumented as of this encounter Procedures Procedure Name Priority Date/Time Associated Diagnosis Comme nts TRANSFUSE RED BLOOD Routine 05/19/2019 3:45 PM CELL UNIT WOOD TYPE FINISHER TRANSFUSE RED BLOOD Routine 05/19/2019 12:45 PM CELL UNIT WOOD TYPE FINISHER BLOOD COMPONENT Routine 05/19/2019 11:29 AM Resul ts for this WOOD TYPE FINISHER procedure are i n the results section. BLOOD COMPONENT Routine 05/19/2019 11:29 AM Resul ts for this WOOD TYPE FINISHER procedure are i n the results section. BLOOD COMPONENT Routine 05/19/2019 11:29 AM Resul ts for this WOOD TYPE FINISHER procedure are i n the results section. ABO/RH TYPE AND STAT 05/19/2019 11:29 AM Resul ts for this SCREEN WOOD TYPE FINISHER procedure are i n the results section. documented in this encounter Results Transfuse red blood cell unit (05/19/2019 8:33 PM WOOD TYPE FINISHER) Dylon Cr MD IP NURSING BLOOD ADMINISTRAT ON Transfuse red blood cell unit (05/19/2019 8:33 PM WOOD TYPE FINISHER) Dylon Cr MD IP NURSING BLOOD ADMINISTRAT ON Transfuse red blood cell unit (05/19/2019 5:59 PM WOOD TYPE FINISHER) Dylon Cr MD IP NURSING BLOOD ADMINISTRAT ON Blood component (05/19/2019 11:29 AM WOOD TYPE FINISHER) [facility] Method Time Signature Unit Number [id number] 05/19/2019 [facility] 12:19 PM [facility] Blood Red Blood Cells 05/19/2019 [place] Component LeukoReduced 12:19 PM [facility] Type Irradiated [facility] Division 00 05/19/2019 [facility] Number 12:19 PM [facility] Status of Released to care 05/19/2019 [facility] Unit unit 11:55 PM [facility] Blood Product [id number] 05/19/2019 [facility] Code 12:19 PM [facility] Unit Status ISS [facility] Specimen Anatomical Collection Method Collection Time Receive d Time (Source) Location / / Volume Laterality 05/19/2019 11:29 05/19/2019 AM WOOD TYPE FINISHER 11:32 AM WOOD TYPE FINISHER Dylon Cr MD LABORATORY Performing Organization Address City/State/ZIP Code Phon e Number M [facility] [address] [phone] [facility] [address] [address], [place] [phone] Blood component (05/19/2019 11:29 AM WOOD TYPE FINISHER) [facility] gist Method Time Signature Unit Number [id number] 05/19/2019 [facility] 12:16 PM [facility] Blood Red Blood Cells 05/19/2019 [facility] Component LeukoReduced 12:16 PM [facility] Type Irradiated [facility] Division 00 05/19/2019 [facility] Number 12:16 PM [facility] Status of Released to care 05/19/2019 [facility] Unit unit 11:55 PM [facility] Blood Product [id number] 05/19/2019 [facility] Code 12:16 PM [facility] Unit Status ISS [facility] Specimen Anatomical Collection Method Collection Time Receive d Time (Source) Location / / Volume Laterality 05/19/2019 11:29 05/19/2019 AM WOOD TYPE FINISHER 11:32 AM WOOD TYPE FINISHER Dylon Cr MD LABORATORY Performing Organization Address City/State/ZIP Code Phon e Number M [facility] [address] [place] [address] [facility] [address] [place] [address], [place] [phone] Blood component (05/19/2019 11:29 AM WOOD TYPE FINISHER) [facility] orderTalk Method Time Signature Unit Number [id number] 05/19/2019 [facility] 12:16 PM [facility] Blood Red Blood Cells 05/19/2019 [facility] Component LeukoReduced 12:16 PM [facility] Irradiated [facility] Division 00 05/19/2019 [facility] Number 12:16 PM [facility] Status of No longer 05/19/2019 [facility] Unit available 12:20 PM [facility] 05/19/2019 1220 [facility] Blood Product [id number] 05/19/2019 [facility] Code 12:16 PM [facility] Unit Status RET [facility] Specimen Anatomical Collection Method Collection Time Receive d Time (Source) Location / / Volume Laterality 05/19/2019 11:29 05/19/2019 AM WOOD TYPE FINISHER 11:32 AM WOOD TYPE FINISHER Dylon Cr MD LABORATORY Performing Organization Address City/State/ZIP Code Phon e Number M [facility] [address] [address] [facility] [address] [address], [place] [phone] ABO/Rh type and screen (05/19/2019 11:29 AM WOOD TYPE FINISHER) [facility] gist Method Time Signature Units Ordered 2 05/19/2019 [place] 11:43 AM [facility] ABO A 05/19/2019 [place] 12:13 PM WOOD TYPE FINISHER [facility] RH(D) Pos [facility] Antibody Neg 05/19/2019 [place] Screen 12:13 PM [facility] Test Valid [place] 05/19/2019 [place] Only At [facility] 11:43 AM [facility] Specimen 05/22/2019 05/19/2019 [place] Expires 11:43 AM [facility] Crossmatch Red Blood 05/19/2019 [place] Cells 11:43 AM [facility] Specimen Anatomical Collection Method Collection Time Receive d Time (Source) Location / / Volume Laterality Blood specimen 05/19/2019 11:29 9 (specimen) AM WOOD TYPE FINISHER 11:32 AM WOOD TYPE FINISHER Dylon Cr MD LAB - BLOOD BANK TEST ORDER Performing Organization Address City/State/ZIP Code Phon e Number M [facility] [address] [address] [phone] [facility] [address] [address], [place] [phone] documented in this encounter Visit Diagnoses Not on filedocumented in this encounter Care Teams Jointer Submarine Cable Relationship Specialty Start Date End Date No Ref-Primary, PCP - General 09/30/17 Physician Candida Epps MD MD Internal Medicine 01/15/19 420 [facility] [address] [place], [place] [address] Shala Bell, HELENE Specialty Care Hematology & Oncology 01/15/19 07/23/21 Coordinator documented as of this encounter
--- OUTSIDE RECORDS SUMMARY | 2022-05-02 12:43 | XMS_ITS | Encounter Summary ---
:1970 Author Organization [place] Address [address] [place] [address] Care Team Providers Name Role Phone No Ref-Primary, Physician Primary Care Provider [phone] Candida Epps MD Unavailable Shala Bell RN Unavailable Unavailable Reason for Referral Diagnostic Imaging NM (Routine) - Closed Specialty Diagnoses / Procedures Referred By Contact Refer red To Contact Radiology. Diagnoses SOB (shortness of breath) ROCHE (dyspnea on exertion) Ronaldo Cheatham MD Nuclear Medicine Procedures NM Lung Scan Ventilation and Perfusion [address] [facility] [address] [address] Phone: Referral ID Status Reason Start Date Expiration Date Visits Requ ested Visits Authorized [id number] Closed 03/10/2019 03/09/2020 1 1 Reason for Visit Diagnostic Imaging NM (Routine) - Closed Specialty Diagnoses / Procedures Referred By Contact Refer red To Contact Radiology. Diagnoses SOB (shortness of breath) ROCHE (dyspnea on exertion) Ronaldo Cheatham MD Nuclear Medicine Procedures NM Lung Scan Ventilation and Perfusion [address] [facility] [address] [address] Phone: Referral ID Status Reason Start Date Expiration Date Visits Requ ested Visits Authorized [id number] Closed 03/10/2019 03/09/2020 1 1 Encounter Details Date Type Department Care Team Description 03/12/2019 [facility] of [facility] Imaging MD Robert ROCHE (dyspnea on exertion) [address] [address] [place], [place] [phone] [address] Social History Tobacco Use Types Packs/Day Years [...] Anterior, posterior, MONTERO, R PO, LPO, and ??HUNGARIAN projections. Comparison: Radiograph 03/12/19 Findings: The ventilation [...] Anterior, posterior, MONTERO, R PO, LPO, and HUNGARIAN projections. Comparison: Radiograph 03/12/19 Findings: The ventilation [...] dose documented in this encounter Care Teams Certified Paralegal Relationship Specialty Start Date End Date No Ref-Primary, PCP - General 09/30/17 Physician Candida Epps MD MD Internal Medicine 01/15/[address] [place] [address] Shala Bell, HELENE Specialty Care Hematology & Oncology 01/15/19 07/23/21 Coordinator documented as of this encounter
--- OUTSIDE RECORDS SUMMARY | 2022-05-02 12:43 | XMS_ITS | Encounter Summary ---
:1970 Author Organization [place] Address [address] [place] [address] Care Team Providers Name Role Phone No Ref-Primary, Physician Primary Care Provider [phone] Candida Epps MD Unavailable Shala Bell RN Unavailable Unavailable Reason for Visit Reason Comments Infusion type/screen, 1 unit PRBCs Encounter Details Date Type Department Care Team Description 03/05/2019 Infusion Therapy [facility] Dylon Cr Myelop roliferative Visit Cancer Center MD Chriss disorder (H) (Primary Dx) [place] ONCOLOGY [facility] [address] [facility] [place] [address] [place], [place] [address] [place] [phone] [address] (Work) [phone] Social History Tobacco Use Types Packs/Day Years [...] PRBCs. Patient seen by provider today: No Classroom Assistant present during visit today: Not Applicable. Note: [...] ON Blood component (03/05/2019 7:30 AM CDT) [facility] Method Time Signature Unit Number [id number] 03/05/2019 [place] 8:49 AM CDT [facility] Blood Red Blood Cells 03/05/2019 [place] Component LeukoReduced 8:49 AM CDT [facility] Irradiated HOSPITAL Division 00 03/05/2019 [place] Number 8:49 AM CDT [facility] Status of Released to care 03/05/2019 [place] Unit unit 11:55 PM [facility] Blood Product [id number] 03/05/2019 [place] Code 8:49 AM CDT [facility] Unit Status ISS [facility] Specimen Anatomical Collection Method Collection Time Receive d Time (Source) Location / / Volume Laterality 03/05/2019 7:30 AM 9 8:07 CDT AM CDT Dylon Cr MD LABORATORY Performing Organization Address City/State/ZIP Code Phon e Number M [facility] [address] [phone] [facility] [address] [address], [place] [phone] ABO/Rh type and screen (03/05/2019 7:30 AM CDT) [facility] Method Time Signature Units Ordered 1 03/05/2019 [place] 8:49 AM CDT [facility] ABO A 03/05/2019 [place] 8:44 AM CDT [facility] RH(D) Pos [facility] Antibody Neg 03/05/2019 [place] Screen 8:44 AM [facility] Test Valid [place] 03/05/2019 [place] Only At [facility] 8:09 AM [facility] Specimen 03/08/2019 03/05/2019 [place] Expires 8:09 AM [facility] Crossmatch Red Blood 03/05/2019 [place] Cells 8:49 AM [facility] Specimen Anatomical Collection Method Collection Time Receive d Time (Source) Location / / Volume Laterality Blood specimen 03/05/2019 7:30 AM 019 8:07 (specimen) CDT AM CDT Dylon Cr MD LAB - BLOOD BANK TEST ORDER Performing Organization Address City/State/ZIP Code Phon e Number M [facility] [address] [phone] [facility] [address] [address], [facility] [phone] documented in this encounter Visit Diagnoses Diagnosis 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
--- OUTSIDE RECORDS SUMMARY | 2022-05-02 12:43 | XMS_ITS | Encounter Summary ---
:1970 Author Organization [address] [place] [address] Care Team Providers Name Role Phone No Ref-Primary, Physician Primary Care Provider [phone] Candida Epps MD Unavailable Shala Bell RN Unavailable Unavailable Encounter Details Date Type Department Care Team Description 04/22/2019 Medical Correspondence [facility] [place] Scan, BLOOD/PLATELET/PLAS Health Info Mgmt Non-Provider MA ORDER FO RM Srvcs [address] [address] Social History Tobacco Use Types [...] on filedocumented in this encounter Care Teams Outdoor Power Equipment Mechanic Relationship Specialty Start Date End Date No Ref-Primary, PCP - General 09/30/17 Physician Candida Epps MD MD Internal Medicine 01/15/19 420 [facility] 480 [place] [address] Shala Bell, HELENE Specialty Care Hematology & Oncology 01/15/19 07/23/21 Coordinator documented as of this encounter
--- OUTSIDE RECORDS SUMMARY | 2022-05-02 12:43 | XMS_ITS | Encounter Summary ---
:1970 Author Organization [place] Address [address] [place] [address] Care Team Providers Name Role Phone No Ref-Primary, Physician Primary Care Provider [phone] Candida Epps MD Unavailable Shala Bell RN Unavailable Unavailable Reason for Visit Diagnostic Imaging NM (Routine) - Closed Specialty Diagnoses / Procedures Referred By Contact Refer red To Contact Cardiology Diagnoses Pre-operative cardiovascular examination SOB (shortness of breath) ROCHE (dyspnea on exertion) Ronaldo Cheatham MD Cardiac Services Procedures NM Lexiscan stress test (nuc card) [address] [facility] 508 500 [place], [place] [address] [place] [address] Phone: Referral ID Status Reason Start Date Expiration Date Visits Requ ested Visits Authorized [id number] Closed 03/10/2019 03/09/2020 5 5 Encounter Details Date Type Department Care Team Description 2019 Hospital Encounter [facility] Ronaldo Cheatham, [facility] Heart [address] [facility] Care 508 500 [place] [address] [phone] Social History Tobacco Use Types Packs/Day Years [...] on filedocumented in this encounter Care Teams Brewery Cellar Worker Relationship Specialty Start Date End Date No Ref-Primary, PCP - General 09/30/17 Physician Candida Epps MD MD Internal Medicine 01/15/[address] [place] [address] Shala Bell, HELENE Specialty Care Hematology & Oncology 01/15/19 07/23/21 Coordinator documented as of this encounter
--- OUTSIDE RECORDS SUMMARY | 2022-05-02 12:43 | XMS_ITS | Encounter Summary ---
:1970 Author Organization [place] Address [address] [place] [address] Care Team Providers Name Role Phone No Ref-Primary, Physician Primary Care Provider [phone] Candida Epps MD Unavailable Shala Bell [...] on filedocumented in this encounter Care Teams Cart Attendant Relationship Specialty Start Date End Date No Ref-Primary, PCP - General 09/30/17 Physician Candida Epps MD MD Internal Medicine 01/15/[address] [place] [address] 480 [place] [address] Shala Bell, HELENE Specialty Care Hematology & Oncology 01/15/19 07/23/21 Coordinator documented as of this encounter
--- OUTSIDE RECORDS SUMMARY | 2022-05-02 12:43 | XMS_ITS | Encounter Summary ---
:1970 Author Organization [place] Address [address] [place] [address] Care Team Providers Name Role Phone No Ref-Primary, Physician Primary Care Provider [phone] Candida Epps MD Unavailable Shala Bell RN Unavailable Unavailable Reason for Referral Diagnostic Imaging XR (Routine) - Closed Specialty Diagnoses / Procedures Referred By Contact Refer red To Contact Radiology. Diagnoses SOB (shortness of breath) ROCHE (dyspnea on exertion) Ronaldo Cheatham MD Uu Xray Procedures X-ray Chest 2 vws* [address] [facility] 508 500 [place] [phone] [address] [place] [address] Phone: Referral ID Status Reason Start Date Expiration Date Visits Requ ested Visits Authorized [id number] Closed 03/10/2019 03/09/2020 1 1 Reason for Visit Diagnostic Imaging XR (Routine) - Closed Specialty Diagnoses / Procedures Referred By Contact Refer red To Contact Radiology. Diagnoses SOB (shortness of breath) ROCHE (dyspnea on exertion) Ronaldo Cheatham MD Uu Xray Procedures X-ray Chest 2 vws* [address] [facility] 508 500 [place] [phone] [address] [place] [address] Phone: Referral ID Status Reason Start Date Expiration Date Visits Requ ested Visits Authorized [id number] Closed 03/10/2019 03/09/2020 1 1 Encounter Details Date Type Department Care Team Description 03/12/2019 [facility] Imaging MD Robert ROCHE (dyspnea on exertion) [address] [place] [address] [phone] Social History Tobacco Use Types Packs/Day Years [...] y documented in this encounter Care Teams Credit Collector Relationship Specialty Start Date End Date No Ref-Primary, PCP - General 09/30/17 Physician Candida Epps MD MD Internal Medicine 01/15/19 420 [facility] 9[address] [place] [address] Shala Bell, HELENE Specialty Care Hematology & Oncology 01/15/19 07/23/21 Coordinator documented as of this encounter
--- OUTSIDE RECORDS SUMMARY | 2022-05-02 12:43 | XMS_ITS | Encounter Summary ---
:1970 Author Organization [place] Address [address] [place] [address] Care Team Providers Name Role Phone No Ref-Primary, Physician Primary Care Provider [phone] Candida Epps MD Unavailable Shala Bell RN Unavailable Unavailable Reason for Visit Reason Comments Blood Draw ABO Encounter Details Date Type Department Care Team Description 04/27/2019 Orders Only [facility] Dylon Cr Myeloproli [facility] MD Chriss disorder (H) [facility] ONCOLOGY [facility] [address] [facility] [place] [address] [place], [place] [address] [place], [place] [phone] [address] (Work) [phone] Social History Tobacco Use Types Packs/Day Years [...] ABO. Patient seen by provider today: No Sleeve Tailor present during visit today: Not Applicable. Note: [...] Results Blood component (04/27/2019 9:25 AM CDT) [facility] Method Time Signature Unit Number [id number] 04/27/2019 [facility] AM [facility] Blood Red Blood Cells 04/27/2019 [facility] Component LeukoReduced 10:42 AM [facility] Irradiated [facility] Division 00 04/27/2019 [facility] Number 10:42 AM [facility] Status of Released to care 04/27/2019 [place] Unit unit 11:52 PM [facility] Blood Product [id number] 04/27/2019 [facility] Code 10:42 AM [facility] Unit Status ISS [facility] Specimen Anatomical Collection Method Collection Time Receive d Time (Source) Location / / Volume Laterality 04/27/2019 9:25 AM 9 9:53 CDT AM CDT Dylon Cr MD LABORATORY Performing Organization Address City/State/ZIP Code Phon e Number M [facility] [address] [place], [place] 55 [facility] [address] [place], [place] [address] 7[facility] [phone] ABO/Rh type and screen (04/27/2019 9:25 AM CDT) Patholo gist Method Time Signature Units Ordered 1 04/27/2019 [place] 10:42 AM [facility] ABO A 04/27/2019 [place] 12:11 PM [facility] RH(D) Pos [facility] Antibody Neg 04/27/2019 [place] Screen 12:11 PM [facility] Test Valid [place] 04/27/2019 [place] Only At [facility] 10:42 AM [facility] Specimen 04/30/2019 04/27/2019 [facility] Expires 10:42 AM [facility] Crossmatch Red Blood 04/27/2019 [place] Cells 10:42 AM [facility] Specimen Anatomical Collection Method Collection Time Receive d Time (Source) Location / / Volume Laterality Blood specimen 04/27/2019 9:25 AM 019 9:53 (specimen) CDT AM CDT Dylon Cr MD LAB - BLOOD BANK TEST ORDER Performing Organization Address City/State/ZIP Code Phon e Number M [facility] [address] [address] [facility] [address] [phone] documented in this encounter 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
--- OUTSIDE RECORDS SUMMARY | 2022-05-02 12:43 | XMS_ITS | Encounter Summary ---
:1970 Author Organization [place] Address [address] [place] [address] Care Team Providers Name Role Phone No Ref-Primary, Physician Primary Care Provider [phone] Candida Epps MD Unavailable Shala Bell RN Unavailable Unavailable Reason for Visit Reason Onset Date Comments Call To Schedule Appointment 04/22/2019 Encounter Details Date Type Department Care Team Description 04/22/2019 Telephone [facility] uNry Khan , Call To Schedule Clinic Dianne Hernandez RN Appointment [address] [phone] [place], [place] (Work) [address] Social History Tobacco Use [...] received call from Dr Dylon Cr at [facility] ([phone]). 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 Procedural anesthesiologist physician attempted to call patient at numbers in [...] spoke with staff, they had one additional wybiye-[phone] which was the voicemail of a Yesi Hughes. Dr Cheatham notified, will send letter asking patient to call us. DBaHELENE ruano documented in 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 Care Teams Batch Room Technician Relationship Specialty Start Date End Date No Ref-Primary, PCP - General 09/30/17 Physician Candida Epps MD MD Internal Medicine 01/15/[address] [place] [address] Shala Bell, HELENE Specialty Care Hematology & Oncology 01/15/19 07/23/21 Coordinator documented as of this encounter
--- OUTSIDE RECORDS SUMMARY | 2022-05-02 12:43 | XMS_ITS | Encounter Summary ---
:1970 Author Organization [place] Address [address] [place] [address] Care Team Providers Name Role Phone No Ref-Primary, Physician Primary Care Provider [phone] Candida Epps MD Unavailable Shala Bell RN Unavailable Unavailable Reason for Visit Diagnostic Imaging NM (Routine) - Closed Specialty Diagnoses / Procedures Referred By Contact Refer red To Contact Cardiology Diagnoses Pre-operative cardiovascular examination SOB (shortness of breath) ROCHE (dyspnea on exertion) Ronaldo Cheatham MD Cardiac Services Procedures NM Lexiscan stress test (nuc card) [address] [address] 500 [place], [place] [address] 9 [place] [address] Phone: Referral ID Status Reason Start Date Expiration Date Visits Requ ested Visits Authorized [id number] Closed 03/10/2019 03/09/2020 5 5 Encounter Details Date Type Department Care Team Description 2019 Hospital Encounter [facility] Ronaldo Cheatham Imaging MD [address] [facility] [address] [address] [place], [place] [phone] (Wo rk) Social History Tobacco Use [...] Intra-procedure documented in this encounter Care Teams Highway Traffic Control Technician Relationship Specialty Start Date End Date No Ref-Primary, PCP - General 09/30/17 Physician Candida Epps MD MD Internal Medicine 01/15/[address] [place] [address] 318 [place] [address] Shala Bell, HELENE Specialty Care Hematology & Oncology 01/15/19 07/23/21 Coordinator documented as of this encounter
--- OUTSIDE RECORDS SUMMARY | 2022-05-02 12:43 | XMS_ITS | Encounter Summary ---
:1970 Author Organization [place] Address [address] [place] [address] Care Team Providers Name Role Phone No Ref-Primary, Physician Primary Care Provider [phone] Candida Epps MD Unavailable Shala Bell [...] on filedocumented in this encounter Care Teams Potato Chip Packaging Machine Operator Relationship Specialty Start Date End Date No Ref-Primary, PCP - General 09/30/17 Physician Candida Epps MD MD Internal Medicine 01/15/[address] [place] [address] 480 [place] [address] Shala Bell, HELENE Specialty Care Hematology & Oncology 01/15/19 07/23/21 Coordinator documented as of this encounter
--- OUTSIDE RECORDS SUMMARY | 2022-05-02 12:43 | XMS_ITS | Encounter Summary ---
:1970 Author Organization [place] Address [facility] [place] [address] Care Team Providers Name Role Phone No Ref-Primary, Physician Primary Care Provider [phone] Candida Epps MD Unavailable Shala Bell RN Unavailable Unavailable Encounter Details Date Type Department Care Team Description 03/05/2019 Hospital Encounter [facility] Dylon Cr [facility] [address] [place] [address] [address] [facility] [phone] [place] 200 [place], [place] [address] (Wo rk) Social History [...] on filedocumented in this encounter Care Teams School Age Program Teacher Relationship Specialty Start Date End Date No Ref-Primary, PCP - General 09/30/17 Physician Candida Epps MD MD Internal Medicine 01/15/19 420 [place] [address] Shala Bell, HELENE Specialty Care Hematology & Oncology 01/15/19 07/23/21 Coordinator documented as of this encounter
--- OUTSIDE RECORDS SUMMARY | 2022-05-02 12:43 | XMS_ITS | Encounter Summary ---
:1970 Author Organization [place] Address [address] [place] [address] Care Team Providers Name Role Phone No Ref-Primary, Physician Primary Care Provider [phone] Candida Epps MD Unavailable Shala Bell [...] filedocumented in this encounter Care Teams Inspector Receiving Relationship Specialty Start Date End Date No Ref-Primary, PCP - General 09/30/17 Physician Candida Epps MD MD Internal Medicine 01/15/[address] [place] [address] 480 [place] [address] Shala Bell, HELENE Specialty Care Hematology & Oncology 01/15/19 07/23/21 Coordinator documented as of this encounter
--- OUTSIDE RECORDS SUMMARY | 2022-05-02 12:43 | XMS_ITS | Encounter Summary ---
:1970 Author Organization [place] Address [address] [place] [address] Care Team Providers Name Role Phone No Ref-Primary, Physician Primary Care Provider [phone] Candida Epps MD Unavailable Shala Bell [...] on filedocumented in this encounter Care Teams Car Cleaner Relationship Specialty Start Date End Date No Ref-Primary, PCP - General 09/30/17 Physician Candida Epps MD MD Internal Medicine 01/15/[address] [place] [address] 480 [place] [address] Shala Bell, HELENE Specialty Care Hematology & Oncology 01/15/19 07/23/21 Coordinator documented as of this encounter
--- OUTSIDE RECORDS SUMMARY | 2022-05-02 12:43 | XMS_ITS | Encounter Summary ---
:1970 Author Organization [place] Address [address] [place] [address] Care Team Providers Name Role Phone No Ref-Primary, Physician Primary Care Provider [phone] Candida Epps MD Unavailable Shala Bell RN Unavailable Unavailable Reason for Visit Reason Onset Date Comments *-*INCOMING RECORDS*-* 03/10/2019 Cardiac Clearance for Spleen Surgery Encounter Details Date Type Department Care Team Description [facility] LISA (Cardiac Clearance for [address] [facility] [address] [place] [address] Spleen Surgery) [place], [place] [address] [place], [place] [phone] [address] (Wo rk) Social History Tobacco Use [...] 02-04-19 Dr. Garcia OFFICE NOTE from other pilot manager N/A DISCHARGE SUMMARY from hospital N/A DISCHARGE [...] on filedocumented in this encounter Care Teams Rehab Technician Relationship Specialty Start Date End Date No Ref-Primary, PCP - General 09/30/17 Physician Candida Epps MD MD Internal Medicine 01/15/[address] [place] [address] 465 [place] [address] Shala Bell, HELENE Specialty Care Hematology & Oncology 01/15/19 07/23/21 Coordinator documented as of this encounter
--- OUTSIDE RECORDS SUMMARY | 2022-05-02 12:43 | XMS_ITS | Encounter Summary ---
:1970 Author Organization [place] Address [address] [place] [address] Care Team Providers Name Role Phone No Ref-Primary, Physician Primary Care Provider [phone] Candida Epps MD Unavailable Shala Bell [...] on filedocumented in this encounter Care Teams Land Reclamation Specialist Relationship Specialty Start Date End Date No Ref-Primary, PCP - General 09/30/17 Physician Candida Epps MD MD Internal Medicine 01/15/[address] [place] [address] 480 [place] [address] Shala Bell, HELENE Specialty Care Hematology & Oncology 01/15/19 07/23/21 Coordinator documented as of this encounter
--- OUTSIDE RECORDS SUMMARY | 2022-05-02 12:43 | XMS_ITS | Encounter Summary ---
:1970 Author Organization [place] Address [address] [place] [address] Care Team Providers Name Role Phone No Ref-Primary, Physician Primary Care Provider [phone] Candida Epps MD Unavailable Shala Bell [...] on filedocumented in this encounter Care Teams Regulatory Agency Director Relationship Specialty Start Date End Date No Ref-Primary, PCP - General 09/30/17 Physician Candida Epps MD MD Internal Medicine 01/15/[address] [place] [address] 480 [place] [address] Shala Bell, HELENE Specialty Care Hematology & Oncology 01/15/19 07/23/21 Coordinator documented as of this encounter
--- OUTSIDE RECORDS SUMMARY | 2022-05-02 12:43 | XMS_ITS | Encounter Summary ---
:1970 Author Organization [place] Address [address] [place] [address] Care Team Providers Name Role Phone No Ref-Primary, Physician Primary Care Provider [phone] Candida Epps MD Unavailable Shala Bell RN Unavailable Unavailable Reason for Visit Reason Comments Blood Transfusion 1 unit PRBC's Encounter Details Date Type Department Care Team Description 04/27/[address] [facility] Dylon Cr Myelop roliferative Visit Cancer Center MD Chriss disorder (H) (Primary Dx) [facility] ONCOLOGY [facility] Medical Ctr [address] [facility] [place] 200 [address] [place], [place] 200 [address] [place], [place] [phone] (Work) [phone] Social History Tobacco Use Types Packs/Day Years [...] PRBC's. Patient seen by provider today: No Primer Powder Blender Wet present during visit today: Not Applicable. Note: [...] tissues documented in this encounter Care Teams Assistive Technology Trainer Relationship Specialty Start Date End Date No Ref-Primary, PCP - General 09/30/17 Physician Candida Epps MD MD Internal Medicine 01/15/19 [address] [facility] 648 [place] [address] Shala Bell, HELENE Specialty Care Hematology & Oncology 01/15/19 07/23/21 Coordinator documented as of this encounter
--- OUTSIDE RECORDS SUMMARY | 2022-05-02 12:43 | XMS_ITS | Encounter Summary ---
:1970 Author Organization [place] Address [address] [place] [address] Care Team Providers Name Role Phone No Ref-Primary, Physician Primary Care Provider [phone] Candida Epps MD Unavailable Shala Bell RN Unavailable Unavailable Reason for Referral Diagnostic Imaging NM (Routine) - Closed Specialty Diagnoses / Procedures Referred By Contact Refer red To Contact Cardiology Diagnoses Pre-operative cardiovascular examination SOB (shortness of breath) ROCHE (dyspnea on exertion) Ronaldo Cheatham MD Cardiac Services Procedures NM Lexiscan stress test (nuc card) [address] [place] [facility] [address] [address] Phone: Referral ID Status Reason Start Date Expiration Date Visits Requ ested Visits Authorized [id number] Closed 03/10/2019 03/09/2020 5 5 Reason for Visit Diagnostic Imaging NM (Routine) - Closed Specialty Diagnoses / Procedures Referred By Contact Refer red To Contact Cardiology Diagnoses Pre-operative cardiovascular examination SOB (shortness of breath) ROCHE (dyspnea on exertion) Ronaldo Cheatham MD Cardiac Services Procedures NM Lexiscan stress test (nuc card) [address] [place] [address] [facility] [address] [id number] 5 [place] [address] Phone: Referral ID Status Reason Start Date Expiration Date Visits Requ ested Visits Authorized [id number] Closed 03/10/2019 03/09/2020 5 5 Encounter Details Date Type Department Care Team Description [facility]onaldo Pre- operative cardiovascular examination; [facility] Imaging MD Robert SOB (shortness of breath); [address] [place] [address] ROCHE (dyspnea on exertion) [facility] 508 [address] [place], [place] [phone] [address] Social History Tobacco Use Types Packs/Day [...] mCi documented in this encounter Care Teams Pilot Boat Deckhand Relationship Specialty Start Date End Date No Ref-Primary, PCP - General 09/30/17 Physician Candida Epps MD MD Internal Medicine 01/15/[address] [place] [address] Shala Bell, HELENE Specialty Care Hematology & Oncology 01/15/19 07/23/21 Coordinator documented as of this encounter
--- OUTSIDE RECORDS SUMMARY | 2022-05-02 12:43 | XMS_ITS | Encounter Summary ---
:1970 Author Organization [place] Address [address] [place] [address] Care Team Providers Name Role Phone No Ref-Primary, Physician Primary Care Provider [phone] Candida Epps MD Unavailable Shala Bell RN Unavailable Unavailable Encounter Details Date Type Department Care Team Description 04/26/2019 Infusion Therapy [facility] Dylon Cr Myelop roliferative Visit Cancer Center MD Chriss disorder (H) (Primary Dx) [facility] ONCOLOGY [facility] Medical Ctr [address] [facility] [place] [address] [place], [place] 200 [address] [place], [place] [phone] (Work) [phone] Social History Tobacco Use Types Packs/Day Years Used Date Smoking Tobacco: Former Cigarettes Quit : 09/27/2012 Smokeless Tobacco: Never Comments: quit September 27, 2012 Alcohol Use Standard Drinks/Week Comments Yes 0 (1 standard drink = 0.6 oz pure alcoho l) 1 drink per week Sex Assigned at Date Recorded Not on file documented as of this encounter Progress Notes Izabella Pendleton RN - 04/26/2019 8:30 AM CDT Erroneous encounter. T MIXER MACHINE documented in this encounter Plan of Treatment Not on filedocumented as of this encounter Results ABO/Rh type and screen (04/27/2019 9:25 AM CDT) Patholo gist Method Time Signature Units Ordered 1 04/27/2019 [place] 10:42 AM [facility] ABO A 04/27/2019 [place] 12:11 PM [facility] RH(D) Pos [facility] Antibody Neg 04/27/2019 [place] Screen 12:11 PM [facility] Test Valid [place] 04/27/2019 [place] Only At [facility] 10:42 AM [facility] Specimen 04/30/2019 04/27/2019 [place] Expires 10:42 AM [facility] Crossmatch Red Blood 04/27/2019 [place] Cells 10:42 AM [facility] Specimen Anatomical Collection Method Collection Time Receive d Time (Source) Location / / Volume Laterality Blood specimen 04/27/2019 9:25 AM 019 9:53 (specimen) CDT AM CDT Dylon Cr MD LAB - BLOOD BANK TEST ORDER Performing Organization Address City/State/ZIP Code Phon e Number [facility] [address] [address] [address] [facility] [address] [phone] documented in this encounter Visit Diagnoses Diagnosis 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
--- OUTSIDE RECORDS SUMMARY | 2022-05-02 12:44 | XMS_ITS | Encounter Summary ---
:1970 Author Organization [place] Address [address] [place] [address]. [place] [address] Care Team Providers Name Role Phone No Ref-Primary, Physician Primary Care Provider [phone] Candida Epps MD Unavailable Shala Bell RN Unavailable Unavailable Encounter Details Date Type Department Care Team Description 03/03/2019 Medical Correspondence [facility] [place] Scan, BLOOD/PLATELET/PLAS Health Info Mgmt Non-Provider MA ORDER FO RM Sr[facility] [address] [address] Social History Tobacco Use Types [...] on filedocumented in this encounter Care Teams Cement Side Laster Relationship Specialty Start Date End Date No Ref-Primary, PCP - General 09/30/17 Physician Candida Epps MD MD Internal Medicine 01/15/19 [address] [place] [address] [facility] 480 [place] [address] Shala Bell, RN Specialty Care Hematology & Oncology 01/15/19 07/23/21 Coordinator documented as of this encounter
--- OUTSIDE RECORDS SUMMARY | 2022-05-02 12:44 | XMS_ITS | Encounter Summary ---
:1970 Author Organization [place] Address [address] [place] [address] Care Team Providers Name Role Phone No Ref-Primary, Physician Primary Care Provider [phone] Candida Epps MD Unavailable Shala Bell [...] on filedocumented in this encounter Care Teams Bookkeeping Service Sales Agent Relationship Specialty Start Date End Date No Ref-Primary, PCP - General 09/30/17 Physician Candida Epps MD MD Internal Medicine 01/15/[address] [place] [address] 480 [place] [address] Shala Bell, HELENE Specialty Care Hematology & Oncology 01/15/19 07/23/21 Coordinator documented as of this encounter
--- OUTSIDE RECORDS SUMMARY | 2022-05-02 12:44 | XMS_ITS | Encounter Summary ---
:1970 Author Organization [place] Address [address] [place] [address] Care Team Providers Name Role Phone No Ref-Primary, Physician Primary Care Provider Candida Epps MD Unavailable Shala Bell RN Unavailable Unavailable Reason for Visit Reason Comments Blood Transfusion 1 unit prbc Encounter Details Date Type Department Care Team Description 02/09/2019 Infusion Therapy [facility] Dylon Cr Myelop roliferative Visit Cancer Center MD Chriss disorder (H) (Primary Dx) [facility]Y [facility] Medical Ctr [address] [facility] [place] [address] [place], [place] 200 [address] [place], [place] [phone] (Work) [phone] Social History Tobacco Use Types Packs/Day Years [...] in this encounter Patient Instructions Patient InstructionsDaClemencia barone RN - 02/09/2019 8:00 AM CDT Patient [...] may include: ?? Fatigue ?? Dizziness ?? [place] or red urine Your clinic is: For informational purposes only. Not to replace the advice of your health care provider. Copyright ?? 2014 [employer] [employer] [facility]. All rights reserved. [employer] [id number] - Rev 01/26. documented in this encounter Progress Notes Clemencia Yusuf RN - 02/09/2019 8:00 AM CDT Infusion Nursing Note: Jennifer Dobbs presents today for 1 unit prbc. Patient seen by provider today: No Manager Highway present during visit today: Not Applicable. Note: [...] type and screen (02/08/2019 2:44 PM CDT) [facility] Method Time Signature Units Ordered 1 02/08/2019 [place] 3:58 PM CDT [facility] ABO A 02/08/2019 [facility] 3:25 PM CDT [facility] RH(D) Pos [facility] Antibody Neg 02/08/2019 [facility] Screen 3:25 PM [facility] Test Valid [place] 02/08/2019 [facility] Only At [facility] 3:58 PM CDT [facility] Specimen 02/11/2019 02/08/2019 [facility] Expires 3:58 PM [facility] Crossmatch Red Blood 02/08/2019 [place] Cells 3:58 PM [facility] Specimen Anatomical Collection Method Collection Time Receive d Time (Source) Location / / Volume Laterality Blood specimen 02/08/2019 2:44 PM 019 2:45 (specimen) CDT PM CDT Dylon Cr MD LAB - BLOOD BANK TEST ORDER Performing Organization Address City/State/ZIP Code Phon e Number M [facility] [address] [place], [place] 55 [facility] [address] [place], [place] 55[address] [facility] [phone] documented in this encounter Visit Diagnoses Diagnosis 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
--- OUTSIDE RECORDS SUMMARY | 2022-05-02 12:44 | XMS_ITS | Encounter Summary ---
:1970 Author Organization [place] Address [address] [place] [address] Care Team Providers Name Role Phone No Ref-Primary, Physician Primary Care Provider [phone] Candida Epps MD Unavailable Shala Bell RN Unavailable Unavailable Encounter Details Date Type Department Care Team Description 03/04/2019 Orders Only [facility] Cancer Dylon Cr MD [facility] ONCOLOGY [facility] Medical Ctr [place] [address] [facility] 200 6363 [facility] [address] [place] [address] [place] [address] [phone] Social History Tobacco Use Types Packs/Day Years [...] on filedocumented in this encounter Care Teams Editing Clerk Relationship Specialty Start Date End Date No Ref-Primary, PCP - General 09/30/17 Physician Candida Epps MD MD Internal Medicine 01/15/19 [address] [place] [address] [facility] [address] [place], [place] [address] Shala Bell, HELENE Specialty Care Hematology & Oncology 01/15/19 07/23/21 Coordinator documented as of this encounter
--- OUTSIDE RECORDS SUMMARY | 2022-05-02 12:44 | XMS_ITS | Encounter Summary ---
:1970 Author Organization [place] Address [address] [place] [address] Care Team Providers Name Role Phone No Ref-Primary, Physician Primary Care Provider [phone] Candida Epps MD Unavailable Shala Bell [...] on filedocumented in this encounter Care Teams Lead Custodian Relationship Specialty Start Date End Date No Ref-Primary, PCP - General 09/30/17 Physician Candida Epps MD MD Internal Medicine 01/15/[address] [place] [address] 480 [place] [address] Shala Bell, HELENE Specialty Care Hematology & Oncology 01/15/19 07/23/21 Coordinator documented as of this encounter
--- OUTSIDE RECORDS SUMMARY | 2022-05-02 12:44 | XMS_ITS | Encounter Summary ---
:1970 Author Organization [place] Address [address] [place] [address] Care Team Providers Name Role Phone No Ref-Primary, Physician Primary Care Provider [phone] Candida Epps MD Unavailable Shala Bell [...] on filedocumented in this encounter Care Teams Gleason Operator Relationship Specialty Start Date End Date No Ref-Primary, PCP - General 09/30/17 Physician Candida Epps MD MD Internal Medicine 01/15/[address] [place] [address] 480 [place] [address] Shala Bell, HELENE Specialty Care Hematology & Oncology 01/15/19 07/23/21 Coordinator documented as of this encounter
--- OUTSIDE RECORDS SUMMARY | 2022-05-02 12:44 | XMS_ITS | Encounter Summary ---
:1970 Author Organization [place] Address [address] [place] [address] Care Team Providers Name Role Phone No Ref-Primary, Physician Primary Care Provider [phone] Candida Epps MD Unavailable Shala Bell [...] on filedocumented in this encounter Care Teams Stereo Compiler Relationship Specialty Start Date End Date No Ref-Primary, PCP - General 09/30/17 Physician Candida Epps MD MD Internal Medicine 01/15/[address] [place] [address] 480 [place] [address] Shala Bell, HELENE Specialty Care Hematology & Oncology 01/15/19 07/23/21 Coordinator documented as of this encounter
--- OUTSIDE RECORDS SUMMARY | 2022-05-02 12:44 | XMS_ITS | Encounter Summary ---
:1970 Author Organization [place] Address [address] [place] [address] Care Team Providers Name Role Phone No Ref-Primary, Physician Primary Care Provider [phone] Candida Epps MD Unavailable Shala Bell RN Unavailable Unavailable Encounter Details Date Type Department Care Team Description 02/16/2019 [facility] Dylon Cr Myeloproli ferative Encounter [facility] Laboratory MD Chriss disorder (H) [address] [place] [address] [place], [place] [address] [place] [address] [address] [place], [place] [phone] [address] Social History Tobacco Use Types Packs/Day [...] Results Blood component (02/16/2019 1:40 PM CDT) [facility] Method Time Signature Unit Number [id number] 02/16/2019 [facility] 2:17 PM [facility] Blood Red Blood Cells 02/16/[address] [facility] Component LeukoReduced 2:17 PM T [facility] 00 02/16/2019 [facility] Number 2:17 PM [facility] Status of Released to care 02/17/2019 [place] Unit unit 11:52 PM [facility] Blood Product [id number] 02/16/2019 [facility] Code 2:17 PM [facility] Unit Status ISS [facility] Specimen Anatomical Collection Method Collection Time Receive d Time (Source) Location / / Volume Laterality 02/16/2019 1:40 PM 9 1:41 CDT PM CDT Dylon Cr MD LABORATORY Performing Organization Address City/State/ZIP Code Phon e Number M [facility] [address] [place], [place] [address] [facility] [address] [place], [place] [address] [place] [address] Blood component (02/16/2019 1:40 PM CDT) [facility] [place] Method Time Signature Unit Number [id number] 02/16/2019 [facility] 2:17 PM [facility] Blood Red Blood Cells 02/16/2019 [facility] Component LeukoReduced 2:17 PM [facility] 00 02/16/2019 [facility] Number 2:17 PM [facility] Status of Released to care 02/17/2019 [facility] Unit unit 11:52 PM [facility] Blood Product [id number] 02/16/2019 [facility] Code 2:17 PM [facility] Unit Status ISS [facility] Specimen Anatomical Collection Method Collection Time Receive d Time (Source) Location / / Volume Laterality 02/16/2019 1:40 PM 9 1:41 CDT PM CDT Dylon Cr MD LABORATORY Performing Organization Address City/[facility]/ZIP Code Phon e Number M [facility] [address] [place] [phone] [place] [address] [address] [place] [phone] ABO/Rh type and screen (02/16/2019 1:40 PM CDT) [facility] Signature Units Ordered 2 02/16/2019 [facility] 2:17 PM [facility] ABO A 02/16/2019 [facility] 2:16 PM [facility] RH(D) Pos [facility] Antibody Neg 02/16/2019 [facility] Screen 2:16 PM [facility] Test Valid [place] 02/16/2019 [facility] Only At [facility] 2:17 PM [facility] Specimen 02/19/2019 02/16/2019 [facility] Expires 2:17 PM [facility] Crossmatch Red Blood 02/16/2019 [facility] Cells 2:17 PM [facility] Specimen Anatomical Collection Method Collection Time Receive d Time (Source) Location / / Volume Laterality Blood specimen 02/16/2019 1:40 PM 019 1:41 (specimen) CDT PM CDT Dylon Cr MD LAB - BLOOD BANK TEST ORDER Performing Organization Address City/[facility]/ZIP Code Phon e Number M 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
--- OUTSIDE RECORDS SUMMARY | 2022-05-02 12:44 | XMS_ITS | Encounter Summary ---
:1970 Author Organization [place] Address [address] [place] [address] Care Team Providers Name Role Phone No Ref-Primary, Physician Primary Care Provider Candida Epps MD Unavailable Shala Bell RN Unavailable Unavailable Encounter Details Date Type Department Care Team Description 02/08/2019 Orders Only [facility] Luis Sinavy V Myelopro liferative disorder [facility] (H) [facility] [address] [address] [place] [phone] Social History Tobacco Use Types Packs/Day Years [...] Results Blood component (02/08/2019 2:44 PM CDT) [facility] Method Time Signature Unit Number [id number] 02/08/2019 [place] 5:52 PM CDT [facility] Blood Red Blood Cells 02/08/2019 [facility] Component LeukoReduced 5:52 PM CDT [facility] 00 02/08/2019 [facility] Number 5:52 PM [facility] Status of Released to care 02/09/2019 [facility] Unit unit 11:52 PM [facility] Blood Product [id number] 02/08/2019 [facility] Code 5:52 PM [facility] Unit Status ISS [facility] Specimen Anatomical Collection Method Collection Time Receive d Time (Source) Location / / Volume Laterality 02/08/2019 2:44 PM 9 2:45 CDT PM CDT Dylon Cr MD LABORATORY Performing Organization Address City/[facility] Phon e Number M [facility] [address] [place], [place] 5533 [facility] [address] [place], [place] 5533 [facility] [phone] ABO/Rh type and screen (02/08/2019 2:44 PM CDT) [facility] Method Time Signature Units Ordered 1 02/08/2019 [facility] 3:58 PM [facility] ABO A 02/08/2019 [facility] 3:25 PM [facility] RH(D) Pos [facility] Antibody Neg 02/08/2019 [facility] Screen 3:25 PM [facility] Test Valid [place] 02/08/2019 [facility] Only At [facility] 3:58 PM [facility] Specimen 02/11/2019 02/08/2019 [facility] Expires 3:58 PM [facility] Crossmatch Red Blood 02/08/2019 [facility] Cells 3:58 PM [facility] Specimen Anatomical Collection Method Collection Time Receive d Time (Source) Location / / Volume Laterality Blood specimen 02/08/2019 2:44 PM 019 2:45 (specimen) CDT PM CDT Dylon Cr MD LAB - BLOOD BANK TEST ORDER Performing Organization Address [facility]/ZIP [facility] Phon e Number M [facility] [address] [place], [place] [address] [facility] [address] [phone] documented in this encounter 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
--- OUTSIDE RECORDS SUMMARY | 2022-05-02 12:44 | XMS_ITS | Encounter Summary ---
:1970 Author Organization [place] Address [address] [place] [address] Care Team Providers Name Role Phone No Ref-Primary, Physician Primary Care Provider [phone] Candida Epps MD Unavailable Shala Bell [...] filedocumented in this encounter Care Teams Sales Associate Cashier Relationship Specialty Start Date End Date No Ref-Primary, PCP - General 09/30/17 Physician Candida Epps MD MD Internal Medicine 01/15/[address] [place] [address] 480 [place] [address] Shala Bell, HELENE Specialty Care Hematology & Oncology 01/15/19 07/23/21 Coordinator documented as of this encounter
--- OUTSIDE RECORDS SUMMARY | 2022-05-02 12:44 | XMS_ITS | Encounter Summary ---
:1970 Author Organization [place] Address [address] [place] [address] Care Team Providers Name Role Phone No Ref-Primary, Physician Primary Care Provider [phone] Candida Epps MD Unavailable Shala Bell RN Unavailable Unavailable Encounter Details Date Type Department Care Team Description 02/08/2019 Hospital Encounter [facility] Dylon Cr , [facility] [address] [place] ON[address] [place], [place] [address] [facility] [address] [facility] 200 [place], [place] [address] (Wo rk) Social [...] on filedocumented in this encounter Care Teams Collection Systems Administrator Relationship Specialty Start Date End Date No Ref-Primary, PCP - General 09/30/17 Physician Candida Epps MD MD Internal Medicine 01/15/19 420 [place] [address] Shala Bell, HELENE Specialty Care Hematology & Oncology 01/15/19 07/23/21 Coordinator documented as of this encounter
--- OUTSIDE RECORDS SUMMARY | 2022-05-02 12:44 | XMS_ITS | Encounter Summary ---
:1970 Author Organization [place] Address [address] [place] [address] Care Team Providers Name Role Phone No Ref-Primary, Physician Primary Care Provider [phone] Candida Epps MD Unavailable Shala Bell [...] on filedocumented in this encounter Care Teams Parts Salesperson Relationship Specialty Start Date End Date No Ref-Primary, PCP - General 09/30/17 Physician Candida Epps MD MD Internal Medicine 01/15/[address] [place] [address] 480 [place] [address] Shala Bell, HELENE Specialty Care Hematology & Oncology 01/15/19 07/23/21 Coordinator documented as of this encounter
--- OUTSIDE RECORDS SUMMARY | 2022-05-02 12:44 | XMS_ITS | Encounter Summary ---
:1970 Author Organization [place] Address [address] [place] [address] Care Team Providers Name Role Phone No Ref-Primary, Physician Primary Care Provider [phone] Candida Epps MD Unavailable Shala Bell RN Unavailable Unavailable Reason for Visit Reason Comments Blood Transfusion 2 units PRBC's Encounter Details Date Type Department Care Team Description 02/17/2019 Infusion Therapy [facility] Dylon Cr Myelop roliferative Visit Cancer Center MD Chriss disorder (H) (Primary Dx) [facility] ONCOLOGY [facility] [address] [facility] [place] [address] [place], [place] [address] [address] [place], [place] [phone] [address] (Work) [phone] Social History Tobacco Use Types Packs/Day Years [...] PRBC's. Patient seen by provider today: No Review Engineer present during visit today: Not Applicable. Note: Has c/o fatigue. Denies previous reaction to blood. Blood started at 120cc/hr and increased fi660qj/hr after 10 minutes. Intravenous Access: Peripheral IV [...] type and screen (02/16/2019 1:40 PM CDT) Health system Time Signature Units Ordered 2 02/16/2019 [facility] 2:17 PM CDT [facility] ABO A 02/16/2019 [facility] 2:16 PM CDT [facility] RH(D) Pos [facility] Antibody Neg 02/16/2019 [facility] Screen 2:16 PM [facility] Test Valid [place] 02/16/2019 [facility] Only At [facility] 2:17 PM [facility] Specimen 02/19/2019 02/16/2019 [facility] Expires 2:17 PM [facility] Crossmatch Red Blood 02/16/2019 [facility] Cells 2:17 PM CDT [facility] Specimen Anatomical Collection Method Collection Time Receive d Time (Source) Location / / Volume Laterality Blood specimen 02/16/2019 1:40 PM 019 1:41 (specimen) CDT PM CDT Dylon Cr MD LAB - BLOOD BANK TEST ORDER Performing Organization Address City/State/ZIP Code Phon e Number M [facility] [address] [place], [place] [address] [facility] [address] [place], [place] [address] [place] [address] documented in this encounter Visit Diagnoses Diagnosis 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
--- OUTSIDE RECORDS SUMMARY | 2022-05-02 12:45 | XMS_ITS | Encounter Summary ---
:1970 Author Organization [place] Address [address] [place] [address] Care Team Providers Name Role Phone No Ref-Primary, Physician Primary Care Provider [phone] Candida Epps MD Unavailable Shala Bell RN Unavailable Unavailable Reason for Referral (Routine) - Closed Specialty Diagnoses / Procedures Referred By Contact Refer red To Contact Procedures Forrest Majano MD HIB, PRP-T, ACTHIB, IM [place] [address] [place] [address] Referral ID Status Reason Start Date Expiration Date Visits Requ ested Visits Authorized [id number] Closed 02/04/2019 02/04/2020 1 1 (Routine) - Closed Specialty Diagnoses / Procedures Referred By Contact Refer red To Contact Diagnoses Myeloproliferative disorder (H) Forrest aMjano MD [address] [place] [phone] 5 Referral ID Status Reason Start Date Expiration Date Visits Requ ested Visits Authorized [id number] Closed 02/04/2019 02/04/2020 1 1 (Routine) - Closed Specialty Diagnoses / Procedures Referred By Contact Refer red To Contact Procedures Forrest Majano MD Pneumococcal vaccine 23 [facility] valent PPSV23 (Pneumovax) [address] [[id number]] [place] [address] 5 Referral ID Status Reason Start Date Expiration Date Visits Requ ested Visits Authorized [id number] Closed 02/04/2019 02/04/2020 1 1 V Testing [...] FOR PERICARDIOCENTESIS HC ECHO MYOCARD BX [facility] C INJECTION, PERFLUTREN LIPI D MICROSPHERES, PER ML HC STATISTIC IV PUSH SINGLE INITIAL SUBSTANCE 420 [place], [place] [address] 5 Referral ID Status Reason Start Date Expiration Date Visits Requ ested Visits Authorized [id number] Closed 02/04/2019 02/04/2020 1 1 V Cardio consult (Routine) - Closed Specialty Diagnoses / Procedures Referred By Contact Refer red To Contact Diagnoses Myeloproliferative disorder (H) Forrest Majano MD [address] [address] Referral ID Status Reason Start Date Expiration Date Visits Requ ested Visits Authorized [id number] Closed 02/04/2019 02/04/2020 1 1 (Routine) - Closed Specialty Diagnoses / Procedures Referred By Contact Refer red To Contact Diagnoses Myeloproliferative disorder (H) Forrest Majano MD Procedures MENINGOCOCCAL VACICINE,SQ (MENOMUNE??)) [address] [address] Referral ID Status Reason Start Date Expiration Date Visits Requ ested Visits Authorized [id number] Closed 02/04/2019 02/04/2020 1 1 Reason for Visit Reason Comments Consult Spenectomy consult Consultation (Routine) - Closed Specialty Diagnoses / Procedures Referred By Contact Refer red To Contact Diagnoses Myeloproliferative disorder (H) Candida Epps MD 420 [facility] 480 [place], [place] [address] 5 Referral ID Status Reason Start Date Expiration Date Visits Requ ested Visits Authorized [id number] Closed 01/19/2019 01/19/2020 1 1 Encounter Details Date Type Department Care Team Description 02/04/2019 Office Visit [facility] General Candida Epps MD [facility] [address] [place], [place] [phone] Spleen enlarged (Primary Dx); Surgery Boaz Garcia MD 420 [facility] 195 [place], [place] [address] Myeloproliferative disorder (H) [address] [facility] [address] 4th [place] [address] Social History Tobacco Use Types [...] Patient to have vaccinations.(3) Patient to call [phone] and speak to Amairani to schedule surgery. Surgery must be at least 2 weeksafter immunizations obtained. Patient to call [phone] to schedule PAC appointment. This can be done after OR schedule date given. documented in this encounter Progress Notes Boaz Garcia MD - 02/04/2019 8:00 AM CDT New General Surgery Consultation Note Jennifer Mendez [id number] 1970 February 04, 2019 Requesting Provider: Candida [...] Has undergone two unsuccessful medication trials at [place]. Over the past 3 years her spleen [...] ??? Pneumococcal vaccine 23 valent PPSV23 (Pneumovax) [77997] ??? HIB, PRP-T, ACTHIB, IM ??? CARDIOLOGY EVAL ADULT REFERRAL ??? PAC Visit Referral (For [facility] Only) ??? Echocardiogram Complete Sincerely, Forrest Majano [...] open splenectomy after cardiology evaluation and immunizations. oBaz Garcia MD Date of Service (when I [...] Referral Routine Myeloproliferative dis order Ordered: (For [facility] Only) (H) 02/04/2019 documented as of this encounter Results ECHO COMPLETE (03/10/2019 8:31 AM CDT) Anatomical Region Laterality Modality Echocardiography Specimen (Source) Anatomical Collection Method Collection Time Re ceived Time Location / / Volume Laterality 03/10/2019 7:41 AM CDT Narrative 03/10/2019 9:23 AM CDT [id number]^BIRDIE^BOAZ^ROOPA [facility] Diagnostic and Treamtent-3rd Floor [address] [place] [address] Name: JENNIFER MENDEZ : 1970 Study Date: 03/10/2019 07:41 AM Age: 48 yrs Gender: Female Patient Location: [facility] Reason For Study: Myeloproliferative dis order [...] Procedure Note Inderjit Patterson MD - 03/10/2019 [id number]^BIRDIE^BOAZ^ROOPA [facility] Diagnostic and Treamtent-3rd Floor [address] [place] [address] Name: JENNIFER MENDEZ : 1970 Study Date: 03/10/2019 07:41 AM Age: 48 yrs Gender: Female Patient Location: [facility] Reason For Study: Myeloproliferative dis order [...] tissues documented in this encounter Care Teams Predatory Hunter Relationship Specialty Start Date End Date No Ref-Primary, PCP - General 09/30/17 Physician Candida Epps MD MD Internal Medicine 01/15/19 420 [place] [address] Shala Bell, RN Specialty Care Hematology & Oncology 01/15/19 07/23/21 Coordinator documented as of this encounter
--- OUTSIDE RECORDS SUMMARY | 2022-05-02 12:45 | XMS_ITS | Encounter Summary ---
:1970 Author Organization [place] Address [address] [place] [address] Care Team Providers Name Role Phone No Ref-Primary, Physician Primary Care Provider [phone] Candida Epps MD Unavailable Shala Bell RN Unavailable Unavailable Encounter Details Date Type Department Care Team Description 01/22/2019 Orders Only [facility] Alexys Epps MD Cancer Clinic [address] [facility] [place], [place] [phone] [place] [address] [place] [address] (Wo rk) Social History Tobacco Use Types [...] on filedocumented in this encounter Care Teams Outside Sales Associate Relationship Specialty Start Date End Date No Ref-Primary, PCP - General 09/30/17 Physician Candida Epps MD MD Internal Medicine 01/15/[address] [place] [address] Sahla Bell, RN Specialty Care Hematology & Oncology 01/15/19 07/23/21 Coordinator documented as of this encounter
--- OUTSIDE RECORDS SUMMARY | 2022-05-02 12:45 | XMS_ITS | Encounter Summary ---
:1970 Author Organization [place] Address [address] [place] [address] Care Team Providers Name Role Phone No Ref-Primary, Physician Primary Care Provider [phone] Candida Epps MD Unavailable Shala Bell RN Unavailable Unavailable Ronaldo jones MD Unavailable Candida Epps MD Unavailable Boaz Garcia MD Unavailable Rodrick Turner MD Unavailable Reason for Visit Reason Onset Date Comments Appointment 12/16/2018 Encounter Details Date Type Department Care Team Description 12/16/[address] [facility] Edin Arellano MD Appointment [facility] [place] [facility]COLOG[place] HEMATOLOGY [address] [place] [address] 200 [place], [place] [phone] [place] [address] (Wo rk) Social History Tobacco [...] on filedocumented in this encounter Care Teams Stem Teacher Relationship Specialty Start Date End Date No Ref-Primary, PCP - General 09/30/17 Physician Candida Epps MD MD Internal Medicine 01/15/[address] [place] [address] 480 [place] [address] Shala Bell, HELENE Specialty Care Hematology & Oncology 01/15/19 07/23/21 Coordinator Ronaldo Cheatham, Assigned Heart and 05/05/20 MD Vascular Provider 420 [facility] 508 [place] [address] Candida Epps MD Assigned Cancer Care 05/05/20 07/22/[address] [facility] [address] [facility] [address] [place], [place] [id number] Boaz Garcia Assigned Surgical 05/05/20 01/25/21 MD [place] Provider 420 [facility] 195 [place] [address] Rodrick Turner MD Assigned Sleep Provider 05/05/20 01/06/[address] [place] [address] [place] [address] documented as of this encounter
--- OUTSIDE RECORDS SUMMARY | 2022-05-02 12:45 | XMS_ITS | Encounter Summary ---
:1970 Author Organization [place] Address [address] [place] [address] Care Team Providers Name Role Phone No Ref-Primary, Physician Primary Care Provider [phone] Candida Epps MD Unavailable Shala Bell [...] filedocumented in this encounter Care Teams Lead Technical Writer Relationship Specialty Start Date End Date No Ref-Primary, PCP - General 09/30/17 Physician Candida Epps MD MD Internal Medicine 01/15/[address] [place] [address] 480 [place] [address] Shala Bell, HELENE Specialty Care Hematology & Oncology 01/15/19 07/23/21 Coordinator documented as of this encounter
--- OUTSIDE RECORDS SUMMARY | 2022-05-02 12:45 | XMS_ITS | Encounter Summary ---
:1970 Author Organization [place] Address [address] [place] [address]. [place] [address] Care Team Providers Name Role Phone No Ref-Primary, Physician Primary Care Provider [phone] Candida Epps MD Unavailable Shala Bell RN Unavailable Unavailable Encounter Details Date Type Department Care Team Description 01/15/2019 Medical Correspondence Health [place] Scan, BLOOD/PLATELET/PLAS Health Info Mgmt Non-Provider [place] ORDER FA [facility] [address] [place] [address] Social History Tobacco Use Types Packs/Day [...] filedocumented in this encounter Care Teams Supervisor Cooler Service Relationship Specialty Start Date End Date No Ref-Primary, PCP - General 09/30/17 Physician Candida Epps MD MD Internal Medicine 01/15/19 420 [facility] 480 [place] [address] Shala Bell, RN Specialty Care Hematology & Oncology 01/15/19 07/23/21 Coordinator documented as of this encounter
--- OUTSIDE RECORDS SUMMARY | 2022-05-02 12:45 | XMS_ITS | Encounter Summary ---
:1970 Author Organization [place] Address [address] [place] [address] Care Team Providers Name Role Phone No Ref-Primary, Physician Primary Care Provider [phone] Encounter Details Date Type Department Care [...] on filedocumented in this encounter Care Teams Engineering Group Manager Relationship Specialty Start Date End Date No Ref-Primary, Physician PCP - General 09/30/17 documented as of this encounter
--- OUTSIDE RECORDS SUMMARY | 2022-05-02 12:45 | XMS_ITS | Encounter Summary ---
:1970 Author Organization [place] Address [address] [place] [address]. [place] [address] Care Team Providers Name Role Phone No Ref-Primary, Physician Primary Care Provider [phone] Encounter Details Date Type Department Care Team Description 12/14/2018 Medical Correspondence [facility] Scan, BLOOD/PLATELET/PLAS Health Info Mgmt Non-Provider MA ORDER FO RM Srv[facility] [address] [address] Social History Tobacco Use Types [...] on filedocumented in this encounter Care Teams Life Skills Teacher Relationship Specialty Start Date End Date No Ref-Primary, Physician PCP - General 09/30/17 documented as of this encounter
--- OUTSIDE RECORDS SUMMARY | 2022-05-02 12:45 | XMS_ITS | Encounter Summary ---
:1970 Author Organization [place] Address [address] [place] [address] Care Team Providers Name Role Phone No Ref-Primary, Physician Primary Care Provider [phone] Candida Epps MD Unavailable Shala Bell RN Unavailable Unavailable Reason for Visit Reason Comments Health Maintenance Encounter Details Date Type Department Care Team Description 01/28/2019 Documentation Only [facility] Ting Mcdonald, Health Maintenance Coordination, [facility] Ambulatory [address] [place] [phone] Social History Tobacco Use Types Packs/Day Years [...] filedocumented in this encounter Care Teams Gas Torch Solderer Relationship Specialty Start Date End Date No Ref-Primary, PCP - General 09/30/17 Physician Candida Epps MD MD Internal Medicine 01/15/[address] [place] [address]125 Shala Bell, HELENE Specialty Care Hematology & Oncology 01/15/19 07/23/21 Coordinator documented as of this encounter
--- OUTSIDE RECORDS SUMMARY | 2022-05-02 12:45 | XMS_ITS | Encounter Summary ---
:1970 Author Organization [place] Address [address] [place] [address] Care Team Providers Name Role Phone No Ref-Primary, Physician Primary Care Provider [phone] Reason for Visit Reason Onset Date Comments *-*INCOMING RECORDS*-* 01/13/2019 MPD Encounter Details Date Type Department Care Team Description 01/13/2019 PRE VISIT [facility] Candida Epps MD *-*INCOMING RECORDS*-* Blood and Marrow [facility] ([facility] Transplant Program [place] [address] [place] [id number] [phone] (Wo rk) Social History Tobacco Use Types [...] - ALL OTHER DIAGNOSIS RECORDS RECEIVED FROM: [facility] DATE RECEIVED: 01/04/19 NOTES STATUS DETAILS OFFICE NOTE from referring provider Epic OFFICE NOTE from medical oncologist DISCHARGE SUMMARY from hospital Epic DISCHARGE REPORT from the ER Epic OPERATIVE REPORT Epic MEDICATION LIST Epic CLINICAL TRIAL TREATMENTS TO DATE LABS PATHOLOGY REPORTS Epic 09/13/18 ANYTHING RELATED TO DIAGNOSIS GENONOMIC TESTING TYPE: [facility] Next Gen Sequencin09/14/15, 08/28/15 IMAGING (NEED IMAGES & REPORT) CT SCANS PACS MRI MAMMO ULTRASOUND PET documented in 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 Care Teams Branding Machine Operator Relationship Specialty Start Date End Date No Ref-Primary, Physician PCP - General 09/30/17 documented as of this encounter
--- OUTSIDE RECORDS SUMMARY | 2022-05-02 12:45 | XMS_ITS | Encounter Summary ---
:1970 Author Organization [place] Address [address] [place] [address] Care Team Providers Name Role Phone No [...] on filedocumented in this encounter Care Teams Diving Supervisor Relationship Specialty Start Date End Date No Ref-Primary, Physician PCP - General 09/30/17 documented as of this encounter
--- OUTSIDE RECORDS SUMMARY | 2022-05-02 12:45 | XMS_ITS | Encounter Summary ---
:1970 Author Organization [place] Address [address] [place] [address]. [place] [address] Care Team Providers Name Role Phone No Ref-Primary, Physician Primary Care Provider [phone] Reason for Visit Reason Comments Blood Transfusion 2 units pRBC's Encounter Details Date Type Department Care Team Description 12/19/2018 Infusion Therapy [facility] Edin Hu Myel oproliferative Visit Cancer Center MD disorder (H) (Primary Dx) [facility] [place] [facility] Medical [facility] HEMATOLOGY [facility] [address] [place] [phone] Social History Tobacco Use Types Packs/Day [...] pRBC's. Patient seen by provider today: No Oil Burner Journeyman present during visit today: Not Applicable. Note: N/A. Intravenous Access: Labs drawn without difficulty. Peripheral IV placed. Treatment Conditions: Blood transfusion consent signed 12/14/18. hgb 6.8 drawn at [facility] on 12/11/18. Post Infusion Assessment: Patient tolerated [...] ON Blood component (12/19/2018 9:36 AM CDT) [facility] Method Time Signature Unit Number [id number] 12/19/2018 [place] 10:28 AM CDT [facility] Blood Red Blood 12/19/2018 [facility] Component Cells 10:28 AM CDT [facility] Reduced Division 00 12/19/2018 [facility] Number 10:28 AM CDT [facility] Status of Released to 12/19/2018 [facility] Unit care unit 11:55 PM CDT [facility] Blood Product [id number] 12/19/2018 [facility] Code 10:28 AM CDT [facility] Unit Status [facility] Specimen Anatomical Collection Method Collection Time Receive d Time (Source) Location / / Volume Laterality 12/19/2018 9:36 AM 9 9:55 CDT AM CDT Edin Hu MD LABORATORY Performing Organization Address City/State/ZIP Code Phon e Number M [facility] [address] [address] [facility] [address] [address], [facility] [phone] Blood component (12/19/2018 9:36 AM CDT) [facility] Method Time Signature Unit Number [id number] 12/19/2018 [facility] 10:28 AM CDT [facility] Blood Red Blood 12/19/2018 [facility] Component Cells 10:28 AM CDT [facility] Reduced Division 00 12/19/2018 [facility] Number 10:28 AM CDT [facility] Status of Released to 12/19/2018 [facility] Unit care unit 11:55 PM CDT [facility] Blood Product [id number] 12/19/2018 [facility] Code 10:28 AM CDT [facility] Unit Status [facility] Specimen Anatomical Collection Method Collection Time Receive d Time (Source) Location / / Volume Laterality 12/19/2018 9:36 AM 9 9:55 CDT AM CDT Edin Hu MD LABORATORY Performing Organization Address City/State/ZIP Code Phon e Number M [facility] [address] [address] [facility] [address] [address], [place] [phone] ABO/Rh type and screen (12/19/2018 9:36 AM CDT) [facility] gist Method Time Signature Units Ordered 2 12/19/2018 [facility] 9:59 AM CDT [facility] ABO A 12/19/2018 [facility] 10:27 AM CDT [facility] RH(D) Pos [facility] Antibody Neg 12/19/2018 [facility] Screen 10:27 AM CDT [facility] Test Valid [place] 12/19/2018 [facility] Only At [facility] 9:59 AM CDT [facility] Specimen 12/22/2018 12/19/2018 [facility] Expires 9:59 AM CDT [facility] Crossmatch Red Blood 12/19/2018 [facility] Cells 9:59 AM [facility] Specimen Anatomical Collection Method Collection Time Receive d Time (Source) Location / / Volume Laterality Blood specimen 12/19/2018 9:36 AM 019 9:55 (specimen) CDT AM CDT Edin Hu MD LAB - BLOOD BANK TEST ORDER Performing Organization Address City/[facility]/ZIP Code Phon e Number M [facility] [address] [address] [facility] [address] [address], [place] [phone] documented in this encounter Visit Diagnoses Diagnosis 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
--- OUTSIDE RECORDS SUMMARY | 2022-05-02 12:45 | XMS_ITS | Encounter Summary ---
:1970 Author Organization [place] Address [address] [place] [address] Care Team Providers Name Role Phone No Ref-Primary, Physician Primary Care Provider [phone] Reason for Visit Reason Comments Abdominal Pain Encounter Details Date Type Department Care Team Description 11/09/2018 Emergency [facility] Jolene Echevarria Sp lenic infarct; [facility] Emergency Dep t Abdominal pain, left upper quadrant; [address] [facility] [place] [address] [facility] [phone] [place], [place] [address] (Wo rk) Social History [...] directed by your provider today. Before using ootv-oaa-[id number], ask your provider and make sure to [...] mg extra BID if not working) Sodium Take 1 tablet by 0 Bicarbonate-Citric [...] infarct in the spleen. Discussed with on-call [place] oncology as patient is a complex patient of Dr. Hu. Inreviewing patient's chart it appears that she has been referred for possible splenectomy in the past. She is failing outpatient chemotherapy regarding her disease process. She is also due for a second opinion at the [facility] but has not yet followed with them. [...] medications for this visit. Talha Mayank 11/09/2018 [facility] Scribe Disclosure: I, Talah Talley, am serving as a scribe at [...] UA with Microscopic (11/09/2018 6:41 PM CDT) [facility] Method Time Signature Color Urine Yellow 11/09/2018 [facility] 7:[address] [facility] Appearance Urine Clear 11/09/2018 [facility] 7:[address] [facility] Glucose Urine Negative NEG^Negat 11/09/2018 [place] otoniel mg/dL 7:[address] [facility] Bilirubin Urine Negative NEG^Negat 11/09/2018 [place] otoniel 7:[address] [facility] Ketones Urine Negative NEG^Negat 11/09/2018 [place] otoniel mg/dL 7:[address] [facility] Specific [place] 1.010 1.003 - 11/09/2018 [place] Urine 1.035 7:[address] [facility] Blood Urine Trace (A) NEG^Negat 11/09/2018 [place] otoniel 7:[address] [facility] pH Urine 5.5 5.0 - 7.0 11/09/2018 [place] pH 7:[address] [facility] Protein Albumin 20 (A) NEG^Negat 11/09/2018 [place] Urine otoniel mg/dL 7:[address] [facility] Urobilinogen Normal 0.0 - 2.0 11/09/2018 [place] mg/dL mg/dL 7:[address] [facility] Nitrite Urine Negative NEG^Negat 11/09/2018 [place] otoniel 7:[address] [facility] Leukocyte Negative NEG^Negat 11/09/2018 [place] Esterase Urine otoniel 7:[address] [facility] Source Midstream 11/09/2018 [place] Urine 6:[address] [facility] WBC Urine 4 0 - 5 11/09/2018 [facility] /HPF 7:[address] [facility] RBC Urine 1 0 - 2 11/09/2018 [facility] /HPF 7:[address] [facility] Squamous 1 0 - 1 11/09/2018 [place] Epithelial /HPF /HPF 7:06 PM [facility] Mucous Urine Present (A) NEG^Negat 11/09/2018 [place] otoniel /LPF 7:[address] [facility] Specimen (Source) Anatomical Collection Method Collection Time Re ceived Time Location / / Volume Laterality Examination of 11/09/2018 6:41 11/09/2018 6:46 midstream urine [facility] (procedure) Jolene Echevarria MD LAB - URINE ORDERABLES Performing Organization Address City/State/ZIP Code Phon e Number M [facility] [address] [place], [place] [address] [facility] [address] [place] [address] [facility] [phone] CT Abdomen Pelvis w Contrast (11/09/2018 5:59 [...] Lactic Acid 1.0 0.7 - 2.0 11/09/2018 [place] mmol/L 5:[address] [facility] Specimen Anatomical Collection Method Collection Time Receive d Time (Source) Location / / Volume Laterality Blood specimen 11/09/2018 4:47 PM 019 5:03 (specimen) CDT PM CDT Jolene Echevarria MD LAB - BLOOD ORDERABLES Performing Organization Address City/State/ZIP Code Phon e Number M [facility] [address] [place], [place] [address] [facility] [address] [phone] Lipase (11/09/2018 4:47 PM CDT) athologist Signature Lipase 73 73 - 393 11/09/2018 [facility] U/L 5:25 PM CDT HOSPITAL Specimen Anatomical Collection Method Collection Time Receive d Time (Source) Location / / Volume Laterality Blood specimen 11/09/2018 4:47 PM 04/29/2 019 5:04 (specimen) CDT PM CDT Jolene Echevarria MD LAB - BLOOD ORDERABLES Performing Organization Address City/State/ZIP Code Phon e [place] [facility] [address] [place], [place] [address] [facility] [address] [place], [place] [address] [facility] [phone] (ABNORMAL) Comprehensive metabolic panel (11/09/2018 4:47 PM CDT) athologist Signature Sodium 139 133 - 144 11/09/2018 [place] mmol/L 5:[address] [facility] Potassium 4.4 3.4 - 5.3 11/09/2018 [place] mmol/L 5:[address] [facility] Chloride 107 94 - 109 11/09/2018 [place] mmol/L 5:[address] [facility] Carbon Dioxide 30 20 - 32 11/09/2018 [place] mmol/L 5:[address] [facility] Anion Gap 2 (L) 3 - 14 11/09/2018 [place] mmol/L 5:[address] [facility] Glucose 91 70 - 99 11/09/2018 [place] mg/dL 5:[address] [facility] Urea Nitrogen 13 7 - 30 11/09/2018 [place] mg/dL 5:[address] [facility] Creatinine 0.93 0.52 - 11/09/2018 [place] 1.04 mg/dL 5:[address] [facility] GFR Estimate 71 >60 11/09/2018 [place] mL/min/{1. 5:23 PM [facility] 73_m2} HOSPITAL Comment: Non GFR Calc Starting 06/30/2018, serum creatinine ba sed estimated GFR (eGFR) will be calculated using the Chronic Kidney Dise ase Epidemiology Collaboration (CKD-EPI) equation. GFR Estimate If 83 >60 mL/min/{1.73_m2} 11/09/2018 5: 23 PM [facility] Comment: GFR Calc Starting 06/30/2018, serum creatinine ba sed estimated GFR (eGFR) will be calculated using the Chronic Kidney Dise ase Epidemiology Collaboration (CKD-EPI) equation. Calcium 9.2 8.5 - 10.1 mg/dL 11/09/2018 5:23 PM [facility] Bilirubin Total 1.2 0.2 - 1.3 mg/dL 11/09/2018 5:25 PM [facility] Albumin 4.0 3.4 - 5.0 g/dL 11/09/2018 5:25 PM [facility] Protein Total 7.3 6.8 - 8.8 g/dL 11/09/2018 5:25 PM [facility] Alkaline Phosphatase 41 40 - 150 U/L 11/09/2018 5:25 PM [facility] ALT 10 0 - 50 U/L 11/09/2018 5:25 PM [facility] AST 23 0 - 45 U/L 11/09/2018 5:25 PM [facility] Specimen Anatomical Collection Method Collection Time Receive d Time (Source) Location / / Volume Laterality Blood specimen 11/09/2018 4:47 PM 019 5:04 (specimen) CDT [facility] J[facility] MD LAB - BLOOD ORDERABLES Performing Organization Address City/State/ZIP Code Phon e Number M [place] [address] [address] [place] [address] [facility] [address] [phone] (ABNORMAL) CBC with platelets differential (11/09/2018 4:47 PM CDT) [facility] Method Time Signature WBC 5.3 4.0 - 11/09/2018 [facility] 11.0 5:29 PM [facility] 10e9/L HOSPITAL RBC Count 2.78 (L) 3.8 - 5.2 11/09/2018 [facility] 10e12/L 5:[address] [facility] Hemoglobin 7.3 (L) 11.7 - 11/09/2018 [facility] 15.7 g/dL 5:[address] [facility] Hematocrit 24.9 (L) 35.0 - 11/09/2018 [facility] 47.0 % 5:[address] [facility] MCV 90 78 - 100 11/09/2018 [facility] fl 5:[address] [facility] MCH 26.3 (L) 26.5 - 11/09/2018 [facility] 33.0 pg 5:[address] [facility] MCHC 29.3 (L) 31.5 - 11/09/2018 [facility] 36.5 g/dL 5:[address] [facility] RDW 25.2 (H) 10.0 - 11/09/2018 [facility] 15.0 % 5:[address] [facility] Platelet Count 170 150 - 450 11/09/2018 [place] 10e9/L 5:[address] [facility] Diff Method Manual 11/09/2018 [place] Differential 5:[address] [facility] Comment: Senior Cost Accountant Performed % Neutrophils 72.0 % 11/09/2018 5:56 [...] Metamyelocytes 2.0 % 11/09/2018 5:56 [facility] CDT HOSPITAL % Myelocytes 1.0 % 11/09/2018 5:56 [place] [facility] DG[facility]T H[facility]PITAL Nucleated RBCs 6 (H) 0 /100 11/09/2018 5:56 [place] [facility]T [facility] Absolute Neutrophil 3.8 1.6 - [...] 0.0 - 0.2 11/09/2018 5:56 [facility] BUFFAL[facility]arabjit 10e9/L PM CDT HOSPITAL Absolute 0.1 (H) 0 10e9/L 11/09/2018 5:56 [place] OLMOS S Metamyelocytes PM CDT HOSPITAL Absolute Myelocytes 0.1 (H) 0 10e9/L 11/09/2018 5:56 [facility]T [facility] Absolute Nucleated RBC 0.3 11/09/2018 5:56 [facility] Anisocytosis Marked 11/09/2018 5:56 [place] RI DGES PM [facility]T HOSPITAL RBC Fragments Slight 11/09/2018 5:56 [place] R IDGES PM [facility]T HOSPITAL Teardrop Cells Slight 11/09/2018 5:56 [facility] CDT HOSPITAL Microcytes Present 11/09/2018 5:56 [place] RIDG ES PM CDT HOSPITAL Platelet Estimate Automated count 11/09/2018 5:56 [facility] confirmed. PM CDT HOSPITAL Platelet morphology is normal. Specimen Anatomical Collection Method Collection Time Receive d Time (Source) Location / / Volume Laterality Blood specimen 11/09/2018 4:47 PM 019 5:04 (specimen) CDT PM CDT Jolene Echevarria MD LAB - BLOOD ORDERABLES Performing Organization Address City/State/ZIP Code Phon e Number M [place] [address] [phone] documented in this encounter Visit Diagnoses Diagnosis [...] minutes. documented in this encounter Care Teams Retail Sales Director Relationship Specialty Start Date End Date No Ref-Primary, Physician PCP - General 09/30/17 documented as of this encounter
--- OUTSIDE RECORDS SUMMARY | 2022-05-02 12:45 | XMS_ITS | Encounter Summary ---
:1970 Author Organization [facility] Address [address] [place] [address] Care Team Providers Name Role Phone No Ref-Primary, Physician Primary Care Provider [phone] Reason for Referral Consultation (Routine) - Closed Specialty Diagnoses / Procedures Referred By Contact Refer red To Contact Diagnoses Myeloproliferative disorder (H) Candida Ramirez MD [address] [place] [address] [phone] Referral ID Status Reason Start Date Expiration Date Visits Requ ested Visits Authorized [id number] Closed 01/19/2019 01/19/2020 1 1 Scheduling Instructions Myelofibrosis with massive splenomegaly, consult for splenectomy. Request Fei Rowan or Javi Toure. Reason for Visit Reason Comments Consult New- Myeloproliferative diso rder Encounter Details Date Type Department Care Team Description 01/13/2019 Office Visit [facility] Candida Ramirez MD Myeloproliferative Blood and Marrow ALLINA JESSICA disorder (H) (Primary Dx) Transplant Program [facility] [address] [address] [phone] Social History Tobacco Use Types Packs/Day Years [...] Ramirez MD - 01/13/2019 3:45 PM CDT [facility] Consultation Jennifer Mendez is a 48 [...] had a consultation with Dr. Orta at [facility], and was treated on 2 clinical trial protocols in [phone]. She experienced significant side effects including fatigue, abdominal discomfort, nausea on the trial drugs. She was last seen at [facility] in July 2016 and then reestablish care with Dr. nolen [place] [facility] in September 2016. Since then, she [...] denies significant alcohol use. Previously worked in [employer] at [employer], not working since diagnosis. No children. Has a cat. 10 brother and sisters. She is the youngest. Family Hx: Mother - of CVA, had colon and skin cancer Brother- melanoma Date Treatment Response Toxicities/Complications 2016 (2-3 months) Jakafi 20 mg twice daily no fatigue, transfusion dependent anemia, nausea 2016 clinical trial drug at [facility] no 2017 clinical trial drug at [facility] no 2018-20 19 (7-8 months) Hydrea 500 [...] is reasonable at this time to con loan clerk bone marrow transplantations, with allogeneic donor. If [...] would also like to go back to [facility] to get another opinion, which I encouraged. - bone marrow biopsy next week - Patient plans to get second opinion from [facility] - Bone marrow transplantation consultation with me on 02/05 - surgery consult for possible splenectomy - Patient will continue regular transfusions through [place] [facility] Candida Ramirez MD Authorization Representativeautomobile washer steam Hematology, Oncology and Transplantation Pager: [phone] ROS: 10 point ROS neg other than [...] Note January 13, 2019 4:02 PM Jennifer Mendez is a 48 year old [...] not needed today. Pharmacy name entered into [facility]: Data Unavailable Clinical concerns: None Otilia Camacho CMA documented in this encounter Plan of Treatment Scheduled Referrals Name Type Priority Associated Diagnoses Order S [facility] Surgery Referral Routine Myeloproliferative disord er Expected: Adult Referral (H) 01/26/2019 (Approximate), Expires: 2019 documented as of this encounter Results Next Generation Sequencing Oncology: Individual Genes; IDH1 (SRSF2, ASXL1 ) (01/22/2019 11:09 AM CDT) Component Value Ref Test Analysis Performed Pathologis t Range Method Time At [facility] Patient Name: JENNIFER MENDEZ Report MR#: [id number] Specimen #: [id number] Collected: 01/22/2019 11:09 Received: 01/22/2019 13:20 Reported: 02/04/2019 18:13 Ordering Phy(s): CANDIDA RAMIREZ Additional Phy(s): Copy to [facility] PAULINE HARTLEY Copy To: TAMANNA For improved result formatting, select 'View Enhanced Report Format' under Linked Documents section. TEST(S) REQUESTED: Next Generation Sequencing Mqeokgbz-RLK5-XJIV0-ASXL1 SPECIMEN DESCRIPTION: Bone Marrow (Left) SIGNIFICANT RESULTS [...] p.K700E A variant of uncertain significance, ABL1 p.M104kqq, was als o detected. Note, that we are unable to determine if the two SF3B1 varia nt are in cis or trans. No other pathogenic variants were identified in the genes li sted above. Concurrent morphologic studies show evidence of persistent m yeloid neoplasm with panmyelosis, atypical megakaryocytes, dysplastic erythroid precursors with ringed sideroblasts and increase marrow fibrosis (DYK10-4834). SF3B1 is the most commonly mutated gene found in MDS (20-33% of MDS overall). ??SF3B1 mutations tend to occur in exons 13-16 and appear to be enriched at codons Ryp277, L ys666, Gut089, Cpv889 and Kek286. ??SF3B1 mutations are highly associated with subtypes of MDS characterized by ring sideroblasts (MDS with ring sideroblasts and MDS with multilineage dysplasia and ring sideroblasts) and p resent in ~80% of these patients. ??In addition, many cases (60-80%) of myelodysplastic/myeloproliferative ne oplasm with ring sideroblast and thrombocytosis (MDS/MPN-RS-T) harbor SF3B1 mutations (Gunnar et al, 2019; PMI D: [id number]). SF3B1 commonly coexists with a JAK2 V617F (50% to 65%), or less commonly a CALR or MPL mutation (<10%) (Ismael EF and Mich R, 2017; PMID: 86950490). Patients with CALR-mutated myelofibrosis may derive benefit from therapy with the JEFRY inhibitor, ruxolitinib (Freddy Ríos et al, 2016, PMID: 56042538, Miranda rosario, 2017, PMID: 04591294), although in this patient this drug was without effect per [facility] records. GENETIC ALTERATIONS --------- Detected Alterations of Known or Potential Pathogenicity --------- Gene: CALR Alteration: K385fs c.1154_1155insTTGTC Type of Alteration: Insertion - Frameshift Significance: Pathogenic Therapeutic Implications*: None Additional Information: COSMIC: [id number] Allele Frequency: 0.0% dbSNP: [id number] References: Erna H, Dean T, Kayla K, Mary G, Jermaine A, Bowen Dillon, Katia Mills, Wes Joel, Mana J, Yoni M, Zuri A, Juanito P, Mercy A, Analia T. Distinct clinical characte ristics of myeloproliferative neoplasms with calreticulin mutations. Haematologica. 2014 Jan;99(7):1184-9 0. doi: 10.3324/haematol.2014.032045. Epub 2013Dec 14. PubMed PMID: 56465148; PubMed Central PMCID: JCO67201 79. Gene: SF3B1 Alteration: K700E c.2098A>G Type of Alteration: Substitution - Missense Significance: Likely Pathogenic Therapeutic Implications*: None Additional Information: COSMIC: [id number], [id number] Allele Frequency: 0.0% dbSNP: [id number] Comment: SF3B1 (p.Sjc481Agy) is a missense variant that has been [...] variant in respect to MDS phenotypes (PMID: 64608116). Based on avai lable information this variant is classified as likely pathogenic. Gene: SF3B1 Alteration: K666R c.1996A>G Type of Alteration: Substitution - Missense Significance: Likely Pathogenic Therapeutic Implications*: None Additional Information: COSMIC: [id number], [id number] Allele Frequency: 0.0% dbSNP: [id number] References: Herbert S, Roman A, Tino A, Inga T, Gavin M, Jose Luis E, Luther F, Enrique A, Ozzie S, Temo S, Padilla M, Brittnee TARANGO. Cancer-associated SF3B1 mutations affect alternative splicing by promoting alternative branchpoint usage. Fátima Commun. 2016 Fe b 4;7:36714. doi: 10.1038/qbooud77161. PubMed PMID: 41705461; PubMed Central PMCID: ZQY2758591. Comment:SF3B1 c.1997A>G (p.Fqk768Twl) is a missense variant that has been [...] protein that functions in calcium storage and living specialist regulation. Missense mutations, silent mutatio ns, nonsense [...] occurring somatic mutation in the CALR gene ([facility]) following CALR L367fs*46. This mutation causes a 5-bp insertion and a frameshift (TTGTC) in exon 9, leading to a loss of about half of the negatively charged amino acids from the C-terminus of the CALR protein (PMID: 2 0102111), leading to an altered subcellular localization signal. References: ??https://www.x.ai.org/content/gene/ca lr/ --------- SF3B1 K666R --------- Nucleotide Change: ??c.1997A>G Type of Alteration: ??Substitution - Missense About this gene: ??Splicing factor 3b, subunit 1, 155kDa (SF 3B1) is a gene that codes for part of the splicing factor 3b protein complex, splicing factor 3B subunit 1 (Gen e 2014). The complex is a member of the spliceosome and is involved in living specialist and mRNA proces sing (Gene 2014). Spliceosome mutations are observed in MDS, chronic lymphocytic leukemia (CLL), AML, an d chronic myelomonocytic leukemia (CMML), and these mutations can cause abnormal expression patterns of so me genes involved in cancer pathogenesis (PMID: 51812130). Pathways: ??RNA splicing References: ??https://www.x.ai.org/content/gene/sf 3b1/ --------- SF3B1 K700E --------- Nucleotide Change: ??c.2098A>G Type of Alteration: ??Substitution - Missense About this gene: ??Splicing factor 3b, subunit 1, 155kDa (SF 3B1) is a gene that codes for part of the splicing factor 3b protein complex, splicing factor 3B subunit 1 (Gen e 2014). The complex is a member of the spliceosome and is involved in living specialist and mRNA proces sing (Gene 2014). Spliceosome mutations are observed in MDS, chronic lymphocytic leukemia (CLL), AML, an d chronic myelomonocytic leukemia (CMML), and these mutations can cause abnormal expression patterns of so me genes involved in cancer pathogenesis (PMID: 52891344). Pathways: ??RNA splicing References: ??https://www.mycancergenome.org/content/gene/sf 3b1/ TEST [...] preparatio n is mediated by tagmentation following Guavus protocols, and target enrichment is performed by hybrid capt ure using Novogen customized baits and Illumina Rapid capture reagents per student accounts coordinator's protocol. The enriched l ibraries are sequenced on an Illumina MiSeq (using version 3 chemistry). FASTQ files are processed through a cu stomized bioinformatic pipeline including CutAdapt, PandaSeq, BWA, and Freebayes. Variant call files ( VCF) are uploaded to Enthuse software for variant filtering, annotation, and reporting. [...] and its performance characteristics determined by the [facility]. It has not been cl eared or approved by the FDA. The laboratory is regulated under CLIA as qualified to perform high-complexity testing. This test is used for clinical purposes. It should not be regarded as investigational or for research . This test was developed and its performance characteristics determined by the [facility] and the [facility] (Cancer & Cardiovascular Research Building Room 0-259, [address] [place] [address]). Genomic DNA extraction, library preparation, sequencing, and interpretation of seque ncing data is performed at [facility]. This test [...] (iii) rendered or confirmed the interpretation(s). --------- General Dynamicscology Disclaimer --------- This report was produced using software licensed by [employer]. Exmovere software is designed to be used in clinical applications solely as a tool to enhance ok dical utility and improve operational efficiency. The use of Exmovere software is not a substitute for ok dical judgment and [employer] in no way holds itself out as having or providing independent medical judgme nt or diagnostic services. [employer] is not liable with respect to any treatment or diagnosis made in co nnection with this report. Ex[employer]re Rules Version: rules-0009O Exmovere Application Version: gjknhe_[id number]- --------- Electronic Signature --------- Electronically signed/cosigned by: Alejandro Andrews MD, PhD 02/04/2019 Electronically Signed Out By: Alejandro Andrews M.D., [facility] CPT Codes: A: O9238-QJLTCW, JMZ2OZUBUL, ERBBSSNGSTC TESTING LAB LOCATION: [address] [address] COLLECTION SITE: Client: ??[facility] Location: ??[place] (B) Specimen Anatomical Collection Method [...] Component Value Ref Test Analysis Performed At [facility] Range Method Time Signature Copath Report Patient Name: JENNIFER MENDEZ MR#: [id number] Specimen #: [id number] Collected: 01/22/2019 11:09 Received: 01/22/2019 15:16 Reported: 01/28/2019 11:38 Ordering Phy(s): CANDIDA RAMIREZ Additional Phy(s): RAFI HARTLEY Copy to [facility] For improved result formatting, select 'View Enhanced Report Format' under Linked Documents section. TEST(S) REQUESTED: [facility] for oncology with SNP SPECIMEN DESCRIPTION: Bone Marrow Aspirate CLINICAL COMMENTS: MF - eval for MDS cytogenetic abnormalities A bone marrow specimen was received in the [facility]ogen[facility] on 01/22/2019 with orders for Bone marrow Chromosome Analysis, FISH and [facility] with SNP for oncology. ??D ue to the hypocellular nature of ??this specimen, microarray testing could not be performed. Billing Comment: Credit Microarray in full 01/26/2019. Electronically Signed Out By: BRUNO Technical SupervisorCPT Codes: A: 65106-BEPOBY, 7562714-BIAFZUK, 91312-KKJUPO <CR>, [id number] -EXTPURE <CR> TESTING LAB LOCATION: [facility] [address], [facility] [address] [place] [phone] COLLECTION SITE: Client: ??[facility] Location: ??[place] (B) Specimen Anatomical Collection Method Collection Time Receive d Time (Source) Location / / Volume Laterality Bone marrow 01/22/2019 11:09 01/22/2019 3:16 specimen AM CDT PM CDT (specimen) Candida [place] Performing Organization Address City/State/ZIP Code Phon e Number [place] FISH With Professional Interpretation (01/22/2019 11:09 AM CDT) Component Value Ref Test Analysis Performed At [facility] Range Method Time Signature Copath Report Patient Name: JENNIFER MENDEZ MR#: [id number] Specimen #: [id number] Collected: 01/22/2019 11:09 Received: 01/22/2019 15:16 Reported: [...] (FISH) Interphase cells examined: 200 Probes: - L26Y719 (13q14.3) / LAMP1 (13q34) - Roy Molecular RESULTS: ABNORMAL - Loss of S30F189 (13q14.3) (52%) INTERPRETATION: Of the interphase cells examined, 52% had loss of I15B284 in 13q14. 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 A G-banding analysis is pending; upon completion, results of that study will be issued as a separate report (CP45-4222). ISCN: nuc adrian(Y35H441a7,ABIX4j0)[104/200] PREVIOUS STUDIES: Date ??(Study ID) ?[id number] 09-14-15 ??([id number]) ? 15% BM: bone marrow Control ranges: O59W320l2: 0-3.3% Analyte Specific Reagents (ASRs) are used in many laboratory tests necessary for standard medical care and generally do not require FDA approval. ??This test was ector edwards and its performance characteristics determined by the [facility] [employer]. ??It has not been cleared or approved by the U.S. Food and Drug Administration. Electronically Signed Out By: Rajani Ferreira M.D., [facility] Codes: A: 77378-ZHMN, 99404-FPAUZ TESTING LAB LOCATION: [address], [address] [phone] COLLECTION SITE: Client: ??[facility] Location: ??[place] (B) Specimen Anatomical [...] Component Value Ref Test Analysis Performed At [facility] Range Method Time Signature Copath Report Patient Name: JENNIFER MENDEZ MR#: [id number] Specimen #: [id number] Collected: 01/22/2019 11:09 Received: 01/22/2019 15:16 Reported: [...] of the previously re ported FISH analysis ([id number]) that showed 52% of the interphase cells examined to have only one D37P028 si gnal present. 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 Since the previous study (QE27-2665 from 09-14-15), there has been expansion but no evolution of this c lone. Electronically Signed Out By: Rajani Ferreira M.D., UMPhysiciansCPT Codes: A: 27668-GIPZW, 90166-REVWT, 00190-ZRNPIEQ, 78375-YIIMSF TESTING LAB LOCATION: [facility] [address], [facility] [address] [place] [address] COLLECTION SITE: Client: ??[facility] Location: ??[place] (B) Specimen Anatomical Collection Method [...] Component Value Ref Test Analysis Performed At [facility] Range Method Time Signature Copath Report Patient Name: JENNIFER MENDEZ MR#: [id number] Specimen #: [id number] Collected: 01/22/2019 11:09 Received: 01/22/2019 12:19 Reported: [...] sampling differences. This sample may not be food service sales representatives. For classification purposes, the morphologic blast count [...] developed and its performance characteristics determined by [facility]. It has not been lamine [...] complexity clinical laboratory testing. CPT Codes: A: 55293-DR, 57501-UZSYYMF, 65972-17-GGZQ15(15), 50334-QNNR> 15 TESTING LAB LOCATION: [place] [id number] [facility] [address] [place] [phone] COLLECTION SITE: Client: ??[facility] Location: ??[place] (B) Specimen Anatomical Collection Method [...] Performed Pathologis t Range Method Time At [facility] Patient Name: JENNIFER MENDEZ Report MR#: [id number] Specimen #: [id number] Collected: 01/22/2019 Received: 01/22/2019 Reported: 01/26/2019 10:51 [...] suggests a myelodysplastic/myeloprol iferative neoplasm. Flow cytometry (IX03-7348) identified no increase in myeloid blasts and no abnormal myeloid blast population I have personally reviewed all specimens and/or slides, incl uding the listed special stains, and used them with my medical judgment to determine the final diagnosis. Electronically signed out by: Margy Serrano M.D., [facility] Technical testing/processing performed at [place], [place] CLINICAL HISTORY: 48-year-old female was diagnosed with myeloid neoplasm with myelofibrosis in 2016 (slides not reviewed here, RM16-24). She has massive splenomegaly and is transfusion de pendent. ??She was treated with Jakafi, 2 clinical trial drugs (at [facility]), and hydroxyurea with no response. REPORT: Procedure/Gross [...] Ref. Range U nits Result Date Hemogram/Diff/PLT P71909 WBC Count 4.4 4.0-11.0 10e9/L 06/2019 10:19 [...] potential dise ase distribution. CPT Codes: A: 51796-GHJO.T, 22175-YESGZ, 55218-THFH, HBM, 25041-CNEL, 8 5060-MORPH, 13713-SSHCH, 43122-ALKE.T, 91991-HUBTN, 02684-WUK, 43002-WQZH, 94138-MHYU, 38698-UJM TESTING LAB LOCATION: [facility], [address] ?? [phone] COLLECTION SITE: Client: ??[facility] Location: ??[place] (B) Specimen Anatomical Collection Method [...] tissues documented in this encounter Care Teams Device Repair Technician Relationship Specialty Start Date End Date No Ref-Primary, Physician PCP - General 09/30/17 documented as of this encounter
--- OUTSIDE RECORDS SUMMARY | 2022-05-02 12:45 | XMS_ITS | Encounter Summary ---
:1970 Author Organization [facility] Address [address] [place] [address] Care Team Providers Name Role Phone No Ref-Primary, Physician Primary Care Provider [phone] Candida Epps MD Unavailable Shala Bell RN Unavailable Unavailable Encounter Details Date Type Department Care Team Description 01/21/2019 Telephone [facility] Blood and Wallace Willis RD Marrow Transplant Program [place] [phone] Social History Tobacco Use Types Packs/Day Years Used Date Smoking Tobacco: Former Cigarettes Quit : 09/27/2012 Smokeless Tobacco: Never Comments: quit September 27, 2012 Alcohol Use Standard Drinks/Week Comments Yes 0 (1 standard drink = 0.6 oz pure alcoho l) 1 drink per week Sex Assigned at Date Recorded Not on file documented as of this encounter Progress Notes Jolene Willis RD - 01/21/2019 2:42 PM CDT CLINICAL NUTRITION SERVICES Reason for Contact: Patient was contacted by phone due to requested to speak with a Dietitian on theOncology Distress Screening tool. Action: RD called patient and discussed concern of pt ability to eat. Pt complaining of acid reflux along with intermittent nausea/vomitting. Discussed foods to avoid with acid reflux (citrus based foods, tomato products, coffee, etc). For nausea/vomitting, discussed role of small and frequent po if better tolerated along. Pt has already altered eating regimen to consist of small and frequent po of high caloric/high protein foods. Pt reports that she suspects these issues will resolve after possibleupcoming surgery for splenectomy as feels that nausea is related to pressure of enlarged spleen. Allof pt questions/concerns were addressed. Pt does not feel that inability to eat is severe at this time. Pt reports that a nutrition visit in clinic would not be beneficial at this time but is aware that RD remains available if needed. Follow up: Pt declines need for RD phone number and will alert PCP if interested in a nutrition consult. Jolene Willis MS, RD, MICROBIOLOGY COORDINATOR, LD. 5C/BMT Pager:[phone] documented in 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 Care Teams Public Works Commissioner Relationship Specialty Start Date End Date No Ref-Primary, PCP - General 09/30/17 Physician Candida Epps MD MD Internal Medicine 01/15/[address] [place] [address] Shala Bell, HELENE Specialty Care Hematology & Oncology 01/15/19 07/23/21 Coordinator documented as of this encounter
--- OUTSIDE RECORDS SUMMARY | 2022-05-02 12:45 | XMS_ITS | Encounter Summary ---
:1970 Author Organization [facility] Address [address] [place] [address] Care Team Providers Name Role Phone No Ref-Primary, Physician Primary Care Provider [phone] Encounter Details Date Type Department Care [...] on filedocumented in this encounter Care Teams Watchmaking Teacher Relationship Specialty Start Date End Date No Ref-Primary, Physician PCP - General 09/30/17 documented as of this encounter
--- OUTSIDE RECORDS SUMMARY | 2022-05-02 12:45 | XMS_ITS | Encounter Summary ---
:1970 Author Organization [place] Address [address] [place] [address] Care Team Providers Name Role Phone No Ref-Primary, Physician Primary Care Provider [phone] Candida Epps MD Unavailable Shala Bell RN Unavailable Unavailable Encounter Details Date Type Department Care Team Description 01/16/2019 Hospital Encounter [facility] Dylon Cr [place] Extended MD Recovery and Short [facility] ONCOLOGY [address] [place] [phone] [place] [address] (Wo rk) Social History Tobacco [...] ON Blood component (01/16/2019 10:43 AM CDT) [facility] Method Time Signature Unit Number [id number] 01/16/2019 [place] 11:50 AM CDT [facility] Blood Red Blood 01/16/2019 [place] Component Cells 11:50 AM CDT [facility] Reduced Division 00 01/16/2019 [facility] Number 11:50 AM CDT [facility] Status of Released to 01/17/2019 [facility] Unit care unit 11:55 PM CDT [facility] Blood Product [id number] 01/16/2019 [facility] Code 11:50 AM CDT [facility] Unit Status ISS [facility] Specimen Anatomical Collection Method Collection Time Receive d Time (Source) Location / / Volume Laterality 01/16/2019 10:43 01/16/2019 AM CDT 10:44 AM CDT Dylon Cr MD LABORATORY Performing Organization Address City/State/ZIP Code Phon e Number M [facility] [address] [phone] [facility] [address] [address], [place] [phone] Blood component (01/16/2019 10:43 AM CDT) [facility] Method Time Signature Unit Number [id number] 01/16/2019 [place] 11:50 AM CDT [facility] Blood Red Blood 01/16/2019 [place] Component Cells 11:50 AM CDT [facility] Reduced Division 00 01/16/2019 [facility] Number 11:50 AM CDT [facility] Status of Released to 01/17/2019 [facility] Unit care unit 11:55 PM CDT [facility] Blood Product [id number] 01/16/2019 [facility] Code 11:50 AM CDT [facility] Unit Status ISS [facility] Specimen Anatomical Collection Method Collection Time Receive d Time (Source) Location / / Volume Laterality 01/16/2019 10:43 01/16/2019 AM CDT 10:44 AM CDT Dylon Cr MD LABORATORY Performing Organization Address City/[facility]/ZIP Code Phon e Number M [facility] [address] [phone] [facility] [address] [phone], [facility] [phone] ABO/Rh type and screen (01/16/2019 10:43 AM CDT) [facility] gist Method Time Signature Units Ordered 2 01/16/2019 [place] 11:29 AM T [facility] ABO A 01/16/2019 [place] 11:49 AM T [facility] RH(D) Pos [facility] Antibody Neg 01/16/2019 [place] Screen 11:49 AM [facility] Test Valid [place] 01/16/2019 [place] Only At [facility] 11:29 AM T [facility] HOSPITAL Specimen 01/19/2019 01/16/2019 [place] Expires 11:29 AM T [facility] Crossmatch Red Blood 01/16/2019 [place] Cells 11:29 AM [facility] Specimen Anatomical Collection Method Collection Time Receive d Time (Source) Location / / Volume Laterality Blood specimen 01/16/2019 10:43 9 (specimen) AM CDT 10:44 AM CDT Dylon Cr MD LAB - BLOOD BANK TEST ORDER Performing Organization Address City/State/ZIP Code Phon e Number M [facility] [address] [phone] [facility] [address] [address], [facility] [phone] documented in this encounter Visit Diagnoses Not [...] tubing is clear of visible blood. Use [place] NIMUM volume necessary for pre and post blood component administration. IF duplicate order nurse to discontinue the duplicate order. documented in this encounter Care Teams Residential Green Building Designer Relationship Specialty Start Date End Date No Ref-Primary, PCP - General 09/30/17 Physician Candida Epps MD MD Internal Medicine 01/15/19 [address] [facility] [address] [place] [address] Shala Bell, HELENE Specialty Care Hematology & Oncology 01/15/19 07/23/21 Coordinator documented as of this encounter
--- OUTSIDE RECORDS SUMMARY | 2022-05-02 12:45 | XMS_ITS | Encounter Summary ---
:1970 Author Organization [place] Address [address] [place] [address] Care Team Providers Name Role Phone No Ref-Primary, Physician Primary Care Provider [phone] Encounter Details Date Type Department Care Team Description 11/11/2018 [facility] Arleen Miles, ROOFING SUPERINTENDENT HEATING ENGINEER [facility] [address] [address] Myeloproliferative Encounter [facility] Laboratory Edin Hu MD [facility] [address] [address] disorder (H) [address] [place] [address] Social History Tobacco Use Types [...] Results Blood component (11/11/2018 7:43 AM CDT) [facility] Method Time Signature Unit Number [id number] 11/11/2018 [facility] 12:58 PM [facility] Blood Red Blood 11/11/2018 [place] Component Cells 12:58 PM [facility] Reduced Division 00 11/11/2018 [facility] Number 12:58 PM [facility] Status of Released to 11/11/2018 [place] Unit care unit 11:52 PM [facility] Blood Product [id number] 11/11/2018 [facility] Code 12:58 PM [facility] Unit Status ISS [facility] Specimen Anatomical Collection Method Collection Time Receive d Time (Source) Location / / Volume Laterality 11/11/2018 7:43 AM 9 7:44 CDT AM CDT Edin Hu MD LABORATORY Performing Organization Address City/State/ZIP Code Phon e Number M [place] [address] [place], [place] [address] [facility] [address] [place], [place] [address], [facility] [phone] Blood component (11/11/2018 7:43 AM CDT) [facility] Method Time Signature Unit Number [id number] 11/11/2018 [facility] 9:04 AM [facility] Blood Red Blood 11/11/2018 [facility] Component Cells 9:04 AM [facility] Reduced Division 00 11/11/2018 [facility] Number 9:04 AM [facility] Status of No longer 11/11/2018 [facility] Unit available 12:58 PM [facility] 11/11/2018 [facility]PITAL 1258 Blood Product [id number] 11/11/2018 [facility] Code 9:04 AM [facility] Unit Status RET [facility] Specimen Anatomical Collection Method Collection Time Receive d Time (Source) Location / / Volume Laterality 11/11/2018 7:43 AM 9 7:44 CDT AM CDT Edin Hu MD LABORATORY Performing Organization Address City/State/ZIP Code Phon e Number M [facility] [address] [place], [place] [address] [facility] [address] [place], [place] [address], [facility] [phone] ABO/Rh type and screen (11/11/2018 7:43 AM CDT) [facility] Signature Units Ordered 1 11/11/2018 [facility] 9:04 AM [facility] ABO A 11/11/2018 [facility] 9:40 AM [facility] RH(D) Pos [facility] Antibody Neg 11/11/2018 [facility] Screen 8:59 AM [facility] Test Valid [place] 11/11/2018 [facility] Only At [facility] 9:04 AM [facility] HOSPITAL Specimen 11/14/2018 11/11/2018 [facility] Expires 9:04 AM [facility] Crossmatch Red Blood 11/11/2018 [facility] Cells 9:04 AM CDT [facility] Specimen Anatomical Collection Method Collection Time Receive d Time (Source) Location / / Volume Laterality Blood specimen 11/11/2018 7:43 AM 019 7:44 (specimen) CDT AM CDT Edin Hu MD LAB - BLOOD BANK TEST ORDER Performing Organization Address City/State/ZIP Code Phon e Number M [facility] [address] [place], [place] [address] [facility] [address] [phone] documented in this encounter 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
--- OUTSIDE RECORDS SUMMARY | 2022-05-02 12:45 | XMS_ITS | Encounter Summary ---
:1970 Author Organization [place] Address [address] [place] [address] Care Team Providers Name Role Phone No Ref-Primary, Physician Primary Care Provider [phone] Candida Epps MD Unavailable Shala Bell [...] filedocumented in this encounter Care Teams Mail Forwarding System Markup Clerk Relationship Specialty Start Date End Date No Ref-Primary, PCP - General 09/30/17 Physician Candida Epps MD MD Internal Medicine 01/15/[address] [place] [address] [address] [place] [address] Shala Bell, HELENE Specialty Care Hematology & Oncology 01/15/19 07/23/21 Coordinator documented as of this encounter
--- OUTSIDE RECORDS SUMMARY | 2022-05-02 12:45 | XMS_ITS | Encounter Summary ---
:1970 Author Organization [place] Address [address] [place] [address] Care Team Providers Name Role Phone No Ref-Primary, Physician Primary Care Provider [phone] Candida Ramirez MD Unavailable Shala Bell RN Unavailable Unavailable Reason for Visit Reason Comments RECHECK Myeloproliferative disorder here for bmbx Encounter Details Date Type Department Care Team Description 01/22/2019 Office Visit [facility] Candida Ramirez MD [facility] [address] [place] [address] Myeloproliferative [facility] Pauline Campbell, PA-C [address] [facility] [place], [place] [address] disorder (H) (Primary Dx) Clinic [address] [place] [address] Social History Tobacco Use Types [...] Bone Marrow Biopsy and Unilateral Aspirate [place] [facility] [place] Patient???s identification was positively verified [...] not needed today. Pharmacy name entered into [employer] - Smartphone RFID: Data Unavailable Clinical concerns: Nausea Endy Carter [...] c,d,i. PIV d/c'd. 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 ?? Time spent with patient: 0 minutes. [...] Performed Pathologis t Range Method Time At [facility] Patient Name: JENNIFER MENDEZ Report MR#: [id number] Specimen #: [id number] Collected: 01/22/2019 11:09 Received: 01/22/2019 13:20 Reported: 02/04/2019 18:13 Ordering Phy(s): CANDIDA RAMIREZ Additional Phy(s): Copy to [facility] PAULINE CAMPBELL Copy To: TAMANNA For improved result formatting, select 'View Enhanced Report Format' under Linked Documents section. TEST(S) REQUESTED: Next Generation Sequencing [id number]-[id number] SPECIMEN DESCRIPTION: Bone Marrow (Left) SIGNIFICANT RESULTS [...] p.K700E A variant of uncertain significance, ABL1 p.N184ijl, was als o detected. Note, that we are unable to determine if the two SF3B1 varia nt are in cis or trans. No other pathogenic variants were identified in the genes li sted above. Concurrent morphologic studies show evidence of persistent m yeloid neoplasm with panmyelosis, atypical megakaryocytes, dysplastic erythroid precursors with ringed sideroblasts and increase marrow fibrosis ([id number]). SF3B1 is the most commonly mutated gene found in MDS (20-33% of MDS overall). ??SF3B1 mutations tend to occur in exons 13-16 and appear to be enriched at codons Mxw188, L ys666, Eyk794, Sqo490 and Nxz782. ??SF3B1 mutations are highly associated with subtypes of MDS characterized by ring sideroblasts (MDS with ring sideroblasts and MDS with multilineage dysplasia and ring sideroblasts) and p resent in ~80% of these patients. ??In addition, many cases (60-80%) of myelodysplastic/myeloproliferative ne oplasm with ring sideroblast and thrombocytosis (MDS/MPN-RS-T) harbor SF3B1 mutations (Maher et al, 2019; PMI D: [id number]). SF3B1 commonly coexists with a JAK2 V617F (50% to 65%), or less commonly a CALR or MPL mutation (<10%) (Ismael EF and Mich R, 2017; PMID: 41557112). Patients with CALR-mutated myelofibrosis may derive benefit from therapy with the ELSI inhibitor, ruxolitinib (Freddy Ríos et al, 2016, PMID: 96934518, Miranda rosario, 2017, PMID: 83621071), although in this patient this drug was without effect per Epic records. GENETIC ALTERATIONS --------- Detected Alterations of Known or Potential Pathogenicity --------- Gene: CALR Alteration: K385fs c.1154_1155insTTGTC Type of Alteration: Insertion - Frameshift Significance: Pathogenic Therapeutic Implications*: None Additional Information: COSMIC: [id number] Allele Frequency: 0.0% dbSNP: [id number] References: Andnia H, Dean T, Kayla K, Mary G, Jermaine A, Bowen byrd M, Katia A, Wse J, Mana J, Yoni M, Zuri A, Juanito P, Mercy A, Analia T. Distinct clinical characte ristics of myeloproliferative neoplasms with calreticulin mutations. Haematologica. 2014 Jan;99(7):1184-9 0. doi: 10.3324/haematol.2014.644670. Epub 2013Dec 14. PubMed PMID: 77566273; PubMed Central PMCID: ENM69354 79. Gene: SF3B1 Alteration: K700E c.2098A>G Type of Alteration: Substitution - Missense Significance: Likely Pathogenic Therapeutic Implications*: None Additional Information: COSMIC: [id number], [id number] Allele Frequency: 0.0% dbSNP: [id number] Comment: SF3B1 (p.Cqh292Ukg) is a missense variant that has been [...] variant in respect to MDS phenotypes (PMID: 68549373). Based on juliethai lable information this variant is classified as likely pathogenic. Gene: SF3B1 Alteration: K666R c.1996A>G Type of Alteration: Substitution - Missense Significance: Likely Pathogenic Therapeutic Implications*: None Additional Information: COSMIC: [id number], [id number] Allele Frequency: 0.0% dbSNP: [id number] References: Herbert S, Roman A, Tino A, Inga T, Gavin Dillon, Jose Luis E, Luther F, Enrique A, Ozzie S, Temo S, Padilla M, Brittnee TARANGO. Cancer-associated SF3B1 mutations affect alternative splicing by promoting alternative branchpoint usage. F[employer] Commun. 2016 Fe b 4;7:00743. doi: 10.1038/otfawm88451. PubMed PMID: 00160957; PubMed Central PMCID: YOE9107265. Comment:SF3B1 c.1996A>G (p.Rna818Biv) is a missense variant that has been [...] --------- --------- CALR K385fs --------- Nucleotide Change: ??c.1154_1153insTTGTC Type of Alteration: ??Insertion - Frameshift About this gene: ??Calreticulin (CALR) is a calcium-binding protein that functions in calcium storage and long filler cigar roller machine regulation. Missense mutations, silent mutatio ns, nonsense [...] C-terminus of the CALR protein (PMID: 2 2763820), leading to an altered subcellular localization signal. References: ??https://www.[employer].org/content/gene/ca lr/ --------- SF3B1 K666R --------- Nucleotide Change: ??c.1996A>G Type of Alteration: ??Substitution - Missense About this gene: ??Splicing factor 3b, subunit 1, 155kDa (SF 3B1) is a gene that codes for part of the splicing factor 3b protein complex, splicing factor 3B subunit 1 (Gen e 2014). The complex is a member of the spliceosome and is involved in long filler cigar roller machine and mRNA proces sing (Gene 2014). Spliceosome mutations are observed in MDS, chronic lymphocytic leukemia (CLL), AML, an d chronic myelomonocytic leukemia (CMML), and these mutations can cause abnormal expression patterns of so me genes involved in cancer pathogenesis (PMID: 02832032). Pathways: ??RNA splicing References: ??https://www.[employer].org/content/gene/sf 3b1/ --------- SF3B1 K700E --------- Nucleotide Change: ??c.8A>G Type of Alteration: ??Substitution - Missense About this gene: ??Splicing factor 3b, subunit 1, 155kDa (SF 3B1) is a gene that codes for part of the splicing factor 3b protein complex, splicing factor 3B subunit 1 (Gen e 2014). The complex is a member of the spliceosome and is involved in long filler cigar roller machine and mRNA proces sing (Gene 2014). Spliceosome mutations are observed in MDS, chronic lymphocytic leukemia (CLL), AML, an d chronic myelomonocytic leukemia (CMML), and these mutations can cause abnormal expression patterns of so me genes involved in cancer pathogenesis (PMID: 67650973). Pathways: ??RNA splicing References: ??https://www.trip.megenome.org/content/gene/sf 3b1/ TEST DETAILS --------- Coverage --------- Unless [...] is performed by hybrid capt ure using relocality customized baits and Illumina Rapid capture reagents per drill bit sharpener's protocol. The enriched l ibraries are sequenced on an Illumina MiSeq (using version 3 chemistry). FASTQ files are processed through a cu stomized bioinformatic pipeline including CutAdapt, PandaSeq, BWA, and Freebayes. Variant call files ( VCF) are uploaded to [employer] software for variant filtering, annotation, and reporting. [...] and its performance characteristics determined by the [facility]. It has not been cl eared or approved by the FDA. The laboratory is regulated under CLIA as qualified to perform high-complexity testing. This test is used for clinical purposes. It should not be regarded as investigational or for research . This test was developed and its performance characteristics determined by the [facility] and the [facility] (Cancer & Cardiovascular Research Building Room 1210, [address] [place] [address]). Genomic DNA extraction, library preparation, sequencing, and interpretation of True&Co data is performed at [facility]. This test has not [...] report was produced using software licensed by [employer]. [employer] software is designed to be used in clinical applications solely as a tool to enhance nv dical utility and improve operational efficiency. The use of [employer] software is not a substitute for nv dical judgment and [facility] in no way holds itself out as having or providing independent medical judgme nt or diagnostic services. [employer] is not liable with respect to any treatment or diagnosis made in co nnection with this report. [employer] Rules Version: rules-0009O [employer] Application Version: nplemf_z31-0153-43-_ --------- Electronic Signature --------- Electronically signed/cosigned by: Alejandro Andrews MD, PhD 02/04/2019 Electronically Signed Out By: Alejandro Andrews M.D., [facility] CPT Codes: A: X8433-VLBMSD, LGG3WILPZH, ERBBSSNGSTC TESTING LAB LOCATION: [facility] [address] [facility] [address] [place] [address] COLLECTION SITE: Client: ??[facility], [place] Location: ??[place] (B) Specimen Anatomical Collection Method [...] Value Ref Test Analysis Performed At [facility] Range Method Time Signature Copath Report Patient Name: JENNIFER MENDEZ MR#: [id number] Specimen #: [id number] Collected: 01/22/2019 11:09 Received: 01/22/2019 15:16 Reported: [...] specimen was received in the [facility] on 01/22/2019 with orders for Bone marrow Chromosome Analysis, FISH and CGH with SNP for oncology. ??D ue to the hypocellular nature of ??this specimen, microarray testing could not be performed. Billing Comment: Credit Microarray in full 01/26/2019. Electronically Signed Out By: BRUNO Technical SupervisorCPT Codes: A: 11289-GLGBMK, 7955940-WRDRAZN, 31837-YWOAWP <CR>, [id number] -EXTPURE <CR> TESTING LAB LOCATION: [facility] [address], [facility] [address] [place] [address] COLLECTION SITE: Client: ??[facility] Location: ??CIRAEJFF (B) Specimen Anatomical Collection Method Collection Time Receive d Time (Source) Location / / Volume Laterality Bone marrow 01/22/2019 11:09 01/22/2019 3:16 specimen AM CDT PM CDT (specimen) Candida PEARSON - PK ZIMMERMAN Performing Organization Address City/State/ZIP Code Phon e Number [place] FISH With Professional Interpretation (01/22/2019 11:09 AM CDT) Component Value Ref Test Analysis Performed At [facility] Range Method Time Signature Copath Report Patient Name: JENNIFER MENDEZ MR#: [id number] Specimen #: [id number] Collected: 01/22/2019 11:09 Received: 01/22/2019 15:16 Reported: [...] (FISH) Interphase cells examined: 200 Probes: - G14P807 (13q14.3) / LAMP1 (13q34) - Roy Molecular RESULTS: ABNORMAL - Loss of G60J739 (13q14.3) (52%) INTERPRETATION: Of the interphase cells examined, 52% had loss of L55V428 in 13q14. 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 A G-banding analysis is pending; upon completion, results of that study will be issued as a separate report ([id number]). ISCN: nuc adrian(L27E664x2,VJDL0x3)[104/200] PREVIOUS STUDIES: Date ??(Study ID) ?[id number] 09-13-16 ??([id number]) ? 15% BM: bone marrow Control ranges: E79B179h9: 0-3.3% Analyte Specific Reagents (ASRs) are used in many laboratory tests necessary for standard medical care and generally do not require FDA approval. ??This test was devel oped and its performance characteristics determined by the [facility] [employer]. ??It has not been cleared or approved by the U.S. Food and Drug Administration. Electronically Signed Out By: Rajani Ferreira M.D., [facility] Codes: A: 20778-BXMX, 99871-FGJZN TESTING LAB LOCATION: [address] [phone] COLLECTION SITE: Client: ??[facility] Location: ??[place] (B) Specimen Anatomical [...] Value Ref Test Analysis Performed At [facility] Range Method Time Signature Copath Report Patient Name: JENNIFER MENDEZ MR#: [id number] Specimen #: [id number] Collected: 01/22/2019 11:09 Received: 01/22/2019 15:16 Reported: [...] of the previously re ported FISH analysis (UE88-2243) that showed 52% of the interphase cells examined to have only one D42M943 si gnal present. 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 Since the previous study ([id number] from 09-14-15), there has been expansion but no evolution of this c lone. Electronically Signed Out By: Rajani Ferreira M.D., [facility] Codes: A: 81713-ANAWI, 67196-QYVTR, 07580-GNIQKOC, 64429-FPJWFG TESTING LAB LOCATION: [facility] [address], [facility] [address] [place] [phone] COLLECTION SITE: Client: ??[facility] Location: ??CIRAJEFF (B) Specimen Anatomical [...] Value Ref Test Analysis Performed At [facility] Range Method Time Signature Copath Report Patient Name: JENNIFER MENDEZ MR#: [id number] Specimen #: [id number] Collected: 01/22/2019 11:09 Received: 01/22/2019 12:19 Reported: [...] sampling differences. This sample may not be quality assurance representative. For classification purposes, the morphologic blast [...] Electronically signed out by: Aleyda Early M.D., [facility] This test was developed and its performance characteristics determined by [facility]. It has not [...] complexity clinical laboratory testing. CPT Codes: A: 06809-QI, 93434-STAJMIU, 22567-41-PXNX13(15), 80216-SJRO> 15 TESTING LAB LOCATION: [address] [phone] COLLECTION SITE: Client: ??[facility] Location: ??[place] (B) Specimen Anatomical Collection Method Collection Time Receive d Time (Source) Location / / Volume Laterality Bone marrow BONE MARROW 01/22/2019 11:09 01/22/2019 specimen STRUCTURE / AM CDT 12:19 PM CDT (specimen) Unknown Candida Ramirez MD LAB - [facility] SPECIAL DIAG OR DERABLES Performing Organization Address City/State/ZIP Code Kunal SHULTZ Bone marrow biopsy (01/22/2019 11:01 AM CDT) Component Value Ref Test Analysis Performed Pathologis t Range Method Time At [facility] Patient Name: JENNIFER MENDEZ Report MR#: [id number] Specimen #: [id number] Collected: 01/22/2019 Received: 01/22/2019 Reported: 01/26/2019 10:51 [...] suggests a myelodysplastic/myeloprol iferative neoplasm. Flow cytometry (ZF54-5286) identified no increase in myeloid blasts and no abnormal myeloid blast population I have personally reviewed all specimens and/or slides, incl uding the listed special stains, and used them with my medical judgment to determine the final diagnosis. Electronically signed out by: Margy Serrano M.D., [facility] Technical testing/processing performed at [place], [place] CLINICAL HISTORY: 48-year-old female was diagnosed with myeloid neoplasm with myelofibrosis in 2016 (slides not reviewed here, RM16-24). She has massive splenomegaly and is transfusion de pendent. ??She was treated with Jakafi, 2 clinical trial drugs (at [place]), and hydroxyurea with no response. REPORT: Procedure/Gross [...] Ref. Range U nits Result Date Hemogram/Diff/PLT [id number] WBC Count 4.4 4.0-11.0 10e9/L 06/2019 10:19 [...] potential dise ase distribution. CPT Codes: A: 76726-CEEL.T, 05372-DMOEP, 99905-OBDN, HBM, 27158-QNQR, 8 5060-MORPH, 76049-OBJFL, 78354-NTUL.T, 96872-DYQMV, 94038-XWG, 05403-SNXY, 65380-IDRT, 12103-HAX TESTING LAB LOCATION: [facility], [facility] [address] [place] [address] ?? [phone] COLLECTION SITE: Client: ??[facility] Location: ??[place] (B) Specimen Anatomical Collection Method Collection Time Receive d Time (Source) Location / / Volume Laterality Bone marrow 01/22/2019 11:01 01/22/2019 specimen AM CDT 12:20 PM CDT (specimen) Pauline PEARSON - PK ZIMMERMAN Performing Organization Address City/State/ZIP Code Phon e Number [place] (ABNORMAL) CBC with platelets differential (01/22/2019 10:00 AM CDT) Component Value Ref Test Analysis Performed At [facility] gist Range Method Time Signature WBC 4.4 4.0 - 01/22/2019 [place] 11.0 10:19 AM OF [place] 10e9/L [facility] RBC Count 3.09 (L) 3.8 - 01/22/2019 [place] 5.2 10:19 AM OF [place] 10e12/L [facility] Hemoglobin 8.1 (L) 11.7 - 01/22/2019 [place] 15.7 10:[address] [facility] g/dL [facility] Hematocrit 27.7 (L) 35.0 - 01/22/2019 [place] 47.0 % 10:19 AM OF [facility] MCV 90 78 - 100 01/22/2019 [place] fl 10:19 AM OF [facility] MCH 26.2 (L) 26.5 - 01/22/2019 [place] 33.0 pg 10:19 AM OF [facility] MCHC 29.2 (L) 31.5 - 01/22/2019 [place] 36.5 10:[address] [facility] g/dL [facility] RDW 25.0 (H) 10.0 - 01/22/2019 [place] 15.0 % 10:19 AM OF [facility] Platelet Count 172 150 - 01/22/2019 [place] 450 10:19 AM OF [place] 10e9/[facility] Diff Method Manual 01/22/2019 [place] Differential 10:56 AM OF [facility] [email or web address] SURG[facility] [place] % Neutrophils 79.8 % 01/22/2019 [place] 10:56 AM OF [facility] % Lymphocytes 7.3 % 01/22/2019 [place] 10:56 AM OF [facility] % Monocytes 8.3 % 01/22/2019 [place] 10:56 AM OF [facility] % Eosinophils 0.0 % 01/22/2019 [place] 10:56 AM OF [facility] % Basophils 0.0 % 01/22/2019 [place] 10:56 AM OF [facility] % Metamyelocytes 1.8 % 01/22/2019 [place] 10:56 AM OF [facility] % Myelocytes 2.8 % 01/22/2019 [place] 10:56 AM OF [facility] Nucleated RBCs 5 (H) 0 /100 01/22/2019 [place] 10:56 AM OF [facility] Absolute 3.5 1.6 - 01/22/2019 [place] Neutrophil 8.3 10:56 AM OF [place] 10e9/[facility] [place] Absolute 0.3 (L) 0.8 - 01/22/2019 [place] Lymphocytes 5.3 10:56 AM OF [place] 10e9/L [facility] [place] Absolute 0.4 0.0 - 01/22/2019 [place] Monocytes 1.3 10:56 AM OF [place] 10e9/[facility] [place] Absolute 0.0 0.0 - 01/22/2019 [place] Eosinophils 0.7 10:56 AM OF [place] 10e9/[facility] [place] Absolute 0.0 0.0 - 01/22/2019 [place] Basophils 0.2 10:56 AM OF [place] 10e9/[facility] [place] Absolute 0.1 (H) 0 10e9/L 01/22/2019 [place] Metamyelocytes 10:56 AM OF [facility] Absolute 0.1 (H) 0 10e9/L 01/22/2019 [place] Myelocytes 10:56 AM OF [facility] [email or web address] Absolute 0.2 01/22/2019 [place] Nucleated RBC 10:56 AM OF [facility] Anisocytosis Marked 01/22/2019 [place] 10:56 AM OF [facility] Poikilocytosis Marked 01/22/2019 [place] 10:56 AM OF [facility] Polychromasia Slight 01/22/2019 [place] 10:56 AM OF [facility] RBC Fragments Slight 01/22/2019 [place] 10:56 AM OF [facility] Teardrop Cells Marked 01/22/2019 [place] 10:56 AM OF [facility] Ovalocytes Marked 01/22/2019 [place] 10:56 AM OF [facility] Platelet Estimate Confirming 01/22/2019 [place] automated cell 10:56 AM OF [place] count [facility] Specimen Anatomical Collection Method Collection Time Receive d Time (Source) Location / / Volume Laterality Blood specimen 01/22/2019 10:00 9 (specimen) AM CDT 10:02 AM CDT Pauline Campbell PA-C LAB - BLOOD ORDERABLES Performing Organization Address City/State/[place] [address] [facility] documented in this encounter Visit Diagnoses [...] dose. documented in this encounter Care Teams Top Case Assembler Relationship Specialty Start Date End Date No Ref-Primary, PCP - General 09/30/17 Physician Candida Ramirez MD MD Internal Medicine 01/15/19 [address] [facility] [address] [place] [address] HazShala delgadillo RN Specialty Care Hematology & Oncology 01/15/19 07/23/21 Coordinator documented as of this encounter
--- OUTSIDE RECORDS SUMMARY | 2022-05-02 12:45 | XMS_ITS | Encounter Summary ---
:1970 Author Organization [place] Address [address] [place] [address] Care Team Providers Name Role Phone No Ref-Primary, Physician Primary Care Provider [phone] Candida Epps MD Unavailable Shala Bell RN Unavailable Unavailable Reason for Visit Reason Comments Blood Transfusion 1 unit prbc Encounter Details Date Type Department Care Team Description 11/11/2018 Infusion Therapy [facility] Edin Hu, Myel oproliferative Visit Cancer Center MD disorder (H) (Primary Dx) [facility] ONCOLOGY [facility] Medical Ctr HEMATOLOGY [address] [place] [address] Social History Tobacco Use Types Packs/Day [...] Sign Reading Time Taken Comments Blood Pressure 123/60 11/11/2018 3:15 PM CDT Pulse 85 11/11/2018 1:54 PM CDT Temperature 36.8 ??C (98.2 ??F) 11/11/2018 3:15 PM CDT Respiratory Rate 16 11/11/2018 3:15 PM CDT Oxygen Saturation 98% 11/11/2018 3:15 PM CDT Inhaled Oxygen Concentration - - Weight - - Height - - Body Mass Index - - documented in this encounter Progress Notes Clemencia Yusuf RN - 11/11/2018 1:30 PM CDT Infusion Nursing Note: Jennifer Dobbs presents today for1 unit prbc Patient seen by provider today: No Collar Trimmer present during visit today: Not Applicable. Note: N/A. Intravenous Access: Peripheral IV placed. Treatment Conditions: Blood transfusion consent signed 08/02/18. hgb 6.5 Post Infusion Assessment: Patient tolerated infusion without incident. Blood return noted pre and post infusion. Site patent and intact, free from redness, edema or discomfort. No evidence of extravasations. Access discontinued per protocol. Discharge Plan: Discharge instructions reviewed with: Patient and Family. Patient discharged in stable condition accompanied by: self and sister. Departure Mode: Ambulatory. Clemencia Yusuf RN documented in this encounter Plan of Treatment Not on filedocumented as of this encounter Procedures Procedure Name Priority Date/Time Associated Diagnosis Comme nts TRANSFUSE RED BLOOD Routine 11/11/2018 1:54 PM Myeloproliferat otoniel disorder CELL UNIT CDT (H) documented in this encounter Results Transfuse red blood cell unit (11/11/2018 3:45 PM CDT) Edin Hu MD IP NURSING BLOOD ADMINISTRAT ON Transfuse red blood cell unit (11/11/2018 3:45 PM CDT) Edin Hu MD IP NURSING BLOOD ADMINISTRAT ON ABO/Rh type and screen (11/11/2018 7:43 AM CDT) [facility] Method Time Signature Units Ordered 1 11/11/2018 [place] 9:04 AM [facility] ABO A 11/11/2018 [place] 9:40 AM T [facility] RH(D) Pos [facility] Antibody Neg 11/11/2018 [place] Screen 8:59 AM [facility] Test Valid [place] 11/11/2018 [facility] Only At [facility] 9:04 AM [facility] HOSPITAL Specimen 11/14/2018 11/11/2018 [facility] Expires 9:04 AM [facility] Crossmatch Red Blood 11/11/2018 [place] Cells 9:04 AM CDT [facility] Specimen Anatomical Collection Method Collection Time Receive d Time (Source) Location / / Volume Laterality Blood specimen 11/11/2018 7:43 AM 019 7:44 (specimen) CDT AM CDT Edin Hu MD LAB - BLOOD BANK TEST ORDER Performing Organization Address City/State/ZIP Code Phon e Number M [place] [address] [place] [address] [facility] [address] [place], [place] [address] [place] [address] documented in this encounter Visit Diagnoses Diagnosis 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
--- OUTSIDE RECORDS SUMMARY | 2022-05-02 12:45 | XMS_ITS | Encounter Summary ---
:1970 Author Organization [place] Address [address] [place] [address] Care Team Providers Name Role Phone No Ref-Primary, Physician Primary Care Provider [phone] Encounter Details Date Type Department Care Team Description 12/19/2018 Hospital Encounter M [facility] Renetta Hu MD [facility] [place] [facility] [address] [employer] [employer] [place] [address] 202 [facility] [phone] [address] [place], [place] [address] (Wo rk) Social History [...] on filedocumented in this encounter Care Teams Soil Engineer Relationship Specialty Start Date End Date No Ref-Primary, Physician PCP - General 09/30/17 documented as of this encounter
--- OUTSIDE RECORDS SUMMARY | 2022-05-02 12:46 | XMS_ITS | Encounter Summary ---
:1970 Author Organization [place] Address [address] [place] [address]. [place] [address] Care Team Providers Name Role Phone No Ref-Primary, Physician Primary Care Provider [phone] Reason for Visit Reason Comments Infusion Encounter Details Date Type Department Care Team Description 08/02/2018 Infusion Therapy [facility] No Myelop roliferative Visit [facility] [place] Ref-Primary, disorder (H) (Primary Dx) [facility] Medical Ctr Physician [facility] [phone] [address] (Fax) [address] [place] [address] Social History Tobacco Use Types [...] Comments Blood Pressure 124/80 08/02/2018 12:39 PM TUBULAR STOCK GLASS BULB MACHINE FORMER Pulse 75 08/02/2018 12:39 PM [employer] M[employer]INE FORMER Temperature 36.7 ??C (98.1 ??F) 08/02/2018 12:39 PM TUB[employer]UL[employer] MACHINE FORMER Respiratory Rate 16 08/02/2018 12:39 PM TUBULAR [employer]OCK [employer]ASS [employer]UL[employer] MACHINE FORMER Oxygen Saturation 100% 08/02/2018 12:39 PM TUBULAR [employer]ASS BULB MACHINE FORMER Inhaled Oxygen Concentration - - Weight - - Height - - Body Mass Index - - documented in this encounter Progress Notes Rolan Bennett RN - 08/02/2018 8:30 AM CST Infusion Nursing Note: Jennifer Dobbs presents today for prbc. Patient seen by provider today: No Deputy Court Clerk present during visit today: Not Applicable. Note: [...] . Departure Mode: Ambulatory. Rolan Bennett RN LAR STOCK GLASS BULB MACHINE FORMER documented in this encounter Plan of Treatment Not on filedocumented as of this encounter Procedures Procedure Name Priority Date/Time Associated Diagnosis Comme nts TRANSFUSE RED Routine 08/02/2018 11:14 Myeloproliferative BLOOD CELL UNIT AM TUBULAR [employer]UL[employer] MACHINE FORMER disorder (H) BLOOD COMPONENT Routine 08/02/2018 8:50 Myeloproliferative Res ults for this AM [employer] MACHINE FORMER disorder (H) procedure are i n the results section. BLOOD COMPONENT Routine 08/02/2018 8:50 Myeloproliferative Res ults for this AM T[employer]ULAR [employer] MACHINE FORMER disorder (H) procedure are i n the results section. ABO/RH TYPE AND STAT 08/02/2018 8:50 Myeloproliferative Res ults for this SCREEN AM TUBULAR [employer]UL[employer] MACHINE FORMER disorder (H) procedure are i n the results section. documented in this encounter Results Transfuse red blood cell unit (08/02/2018 12:46 PM TUBULAR [employer]UL[employer] MACHINE FORMER) Edin Hu MD IP NURSING BLOOD ADMINISTRAT ON Transfuse red blood cell unit (08/02/2018 11:15 AM TUB[employer] MACHINE FORMER) Edin Hu MD IP NURSING BLOOD ADMINISTRAT ON Blood component (08/02/2018 8:50 AM TUBULAR [employer]OCK [employer]ASS BULB MACHINE FORMER) [facility] Method Time Signature Unit Number [id number] 08/02/2018 [facility] 9:33 AM TUBULAR [employer]ASS [employer]ULB MACHINE FORMER [facility] Blood Red Blood 08/02/2018 [facility] Component Cells 9:33 AM [facility] Reduced Division 00 08/02/2018 [facility] Number 9:33 AM [facility] Status of Released to 08/02/2018 [place] Unit care unit 11:55 PM [facility] Blood Product [id number] 08/02/2018 [facility] Code 9:33 AM [facility] Unit Status ISS [facility] Specimen Anatomical Collection Method Collection Time Receive d Time (Source) Location / / Volume Laterality 08/02/2018 8:50 AM 9 8:51 TUBULAR STOCK [employer]ASS [employer]ULB MACHINE FORMER AM TUBULAR [employer] FORMER Edin Hu MD LABORATORY Performing Organization Address City/State/ZIP Code Phon e Number M [facility] [address] [place] [address] [facility] [address] [place] [address], [place] [phone] Blood component (08/02/2018 8:50 AM TUBULAR STOCK GLASS BULB MACHINE FORMER) [facility] Method Time Signature Unit Number [id number] 08/02/2018 [facility] 9:33 AM [facility] Blood Red Blood 08/02/2018 [facility] Component Cells 9:33 AM [facility] Reduced Division 00 08/02/2018 [facility] Number 9:33 AM [facility] Status of Released to 08/02/2018 [place] Unit care unit 11:55 PM [facility] Blood Product [id number] 08/02/2018 [facility] Code 9:33 AM [facility] Unit Status [facility] Specimen Anatomical Collection Method Collection Time Receive d Time (Source) Location / / Volume Laterality 08/02/2018 8:50 AM 9 8:51 TUBULAR STOCK GLASS BULB MACHINE FORMER AM TUBULAR [employer]UL[employer] MACHINE FORMER Edin uH MD LABORATORY Performing Organization Address City/State/ZIP Code Phon e Number M [facility] [address] [place] [address] [facility] [address] [place] [address], [place] [phone] ABO/Rh type and screen (08/02/2018 8:50 AM TUBULAR STOCK [employer]ASS [employer]UL[employer] MACHINE FORMER) Patholo gist Method Time Signature Units Ordered 2 08/02/2018 [place] 9:00 AM [facility] ABO A 08/02/2018 [facility] 9:32 AM [facility] RH(D) Pos [facility] Antibody Neg 08/02/2018 [place] Screen 9:32 AM [facility] Test Valid [place] 08/02/2018 [facility] Only At [facility] 9:00 AM [facility] Specimen 08/05/2018 08/02/2018 [facility] Expires 9:00 AM [facility] Crossmatch Red Blood 08/02/2018 [place] Cells 9:00 AM [facility] Specimen Anatomical Collection Method Collection Time Receive d Time (Source) Location / / Volume Laterality Blood specimen 08/02/2018 8:50 AM 019 8:51 (specimen) TUBULAR STOCK GLASS BULB MACHINE FORMER AM TUBULAR [employer]OCK [employer]ASS [employer]ULB MACHINE FORMER Edin Hu MD LAB - BLOOD BANK TEST ORDER Performing Organization Address City/State/ZIP Code Phon e Number M 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
--- OUTSIDE RECORDS SUMMARY | 2022-05-02 12:46 | XMS_ITS | Encounter Summary ---
:1970 Author Organization [place] Address [address] [place] [address] Care Team Providers Name Role Phone No Ref-Primary, Physician Primary Care Provider [phone] Reason for Visit Reason Comments Social Work Services Encounter Details Date Type Department Care Team Description 06/29/2018 [facility] Social Shonda Wor Services [facility] ANTONIA Kang Visit [place] [phone] [facility] DEONDRE RASMUSSEN (Work) [address] [place] [address] Social History Tobacco Use Types [...] she worked with friend who is a nutrition counselor to establish coverage for July 2018. Provided safe place for Jennifer to express significant psychosocial distress regarding ways in which diagnosis has impacted life, Jennifer reports that she discontinued work at [employer] as she is so fatigued that she is unable to engage in basiccares. Jennifer acknowledges that family is overdue on multiple medical bills, and continues to await [employer] approval of which she is receiving legal assistance. Family acknowledged feeling very discouragedabout what might be available for assistance with ongoing concern. Oriented family to oncology SW support, and provided resource support for what may be available in community for assistance. Provided active listening and emotional support surrounding understandably distressing adjustment to diagnosis and treatment. Resources Provided: Leukemia Lymphoma Society [facility] [place] Billing Department [place] [facility] SW contact information, [facility] [facility] SW contact information Community Resource Guide [facility]: Financial Help, Medical Insurance, Transportation Plan: 1) This clinician to submit [employer] application to [employer] on family's behalf. Per pt, she has received [employer] in past, which is awarded once per lifetime. 2) Pt knows to reach out to SW in the case of psychosocial support or need. This clinician to notifyOnc SW at [facility] of pt's ongoing need Please call or page if needs or concerns arise. ENMA Malone, ANTONIA Direct Pager: [phone] ICE ATTENDANT [place]IA documented in this encounter Plan of Treatment Not on filedocumented as of this encounter Visit Diagnoses Diagnosis Counseling NOS(V65.40) - Primary Counseling NOS documented in this encounter Care Teams Water Jet Operator Relationship Specialty Start Date End Date No Ref-Primary, Physician PCP - General 09/30/17 documented as of this encounter
--- OUTSIDE RECORDS SUMMARY | 2022-05-02 12:46 | XMS_ITS | Encounter Summary ---
:1970 Author Organization [place] Address [address] [place] [address] Care Team Providers Name Role Phone No Ref-Primary, Physician Primary Care Provider [phone] Encounter Details Date Type Department Care [...] on filedocumented in this encounter Care Teams Coupler Relationship Specialty Start Date End Date No Ref-Primary, Physician PCP - General 09/30/17 documented as of this encounter
--- OUTSIDE RECORDS SUMMARY | 2022-05-02 12:46 | XMS_ITS | Encounter Summary ---
:1970 Author Organization [place] Address [address] [place] [address] Care Team Providers Name Role Phone No Ref-Primary, Physician Primary Care Provider Reason for Visit Reason Onset Date Comments Referral 08/07/2018 Via referral from [place] [facility] Encounter Details Date Type Department Care Team Description 08/07/2018 Telephone [facility] Blood and None Referral (Via referral from [facility] [place] [facility]) [place] [phone] Social History Tobacco Use Types Packs/Day [...] clinic/location)? Please confirm with PT upon Scheduling L POLISHER documented in 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 Care Teams Base Filler Operator Relationship Specialty Start Date End Date No Ref-Primary, Physician PCP - General 09/30/17 documented as of this encounter
--- OUTSIDE RECORDS SUMMARY | 2022-05-02 12:46 | XMS_ITS | Encounter Summary ---
:1970 Author Organization [place] Address [address] [place] [address] Care Team Providers Name Role Phone No Ref-Primary, Physician Primary Care Provider [phone] Encounter Details Date Type Department Care Team Description 08/24/2018 Infusion Therapy [facility] Edin Hu Myel oproliferative Visit Cancer Center MD disorder (H) (Primary Dx) [facility] ONCOLOGY [facility] Medical Ctr HEMATOLOGY [address] [place] [address] [phone] Social History Tobacco Use Types Packs/Day Years [...] CST Erroneous encounter - patient cancelled appointment. GATIONIST documented in this encounter Plan of Treatment Not on filedocumented as of this encounter Results ABO/Rh type and screen (08/24/2018 12:25 PM IRRIGATIONIST) [facility] Method Time Signature ABO A 08/24/2018 [place] 1:[address] [facility] RH(D) Pos [facility] Antibody Neg 08/24/2018 [place] Screen 1:[address] [facility] Test Valid [place] 08/24/2018 [place] Only At [facility] 12:52 PM IRRIGATIONIST [facility] Specimen 08/27/2018 08/24/2018 [place] Expires 12:[address] 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
--- OUTSIDE RECORDS SUMMARY | 2022-05-02 12:46 | XMS_ITS | Encounter Summary ---
:1970 Author Organization [place] Address [facility] [place] [address] Care Team Providers Name Role Phone No Ref-Primary, Physician Primary Care Provider Encounter Details Date Type Department Care Team Description 08/24/2018 [facility] Edin Hu, Myelopro liferative Encounter [facility] LISA disorder (H) Laboratory [place] ONCOLOGY [address] [facility] HEMATOLOGY [place], [place] [address] [place] [phone] [facility] [address] [place] [address] Social History Tobacco Use Types [...] 15 mg extra BID if not working) ALLOPURINOL PO Take 300 mg by mouth 0 10/26/2018 daily hydroxyurea (HYDREA) 500 Take 500 mg by mouth 0 12/19/2018 MG capsule CHEMO daily documented as of this encounter Plan of Treatment Not on filedocumented as of this encounter Procedures Procedure Name Priority Date/Time Associated Diagnosis Comme nts ABO/RH TYPE AND Routine 08/24/2018 12:25 Myeloproliferative Re sults for this SCREEN PM TELEVISION REPAIR TEACHER disorder (H) procedure are i n the results section. documented in this encounter Results ABO/Rh type and screen (08/24/2018 12:25 PM TELEVISION REPAIR TEACHER) [facility] gist Method Time Signature ABO A 08/24/2018 [place] 1:09 PM TELEVISION REPAIR TEACHER [facility] RH(D) Pos [facility] Antibody Neg 08/24/2018 [place] Screen 1:09 PM TELEVISION REPAIR TEACHER [facility] Test Valid [place] 08/24/2018 [place] Only At [facility] 12:52 PM TELEVISION REPAIR TEACHER [facility] Specimen 08/27/2018 08/24/2018 [place] Expires 12:52 PM [facility] Specimen Anatomical Collection Method Collection Time Receive d Time (Source) Location / / Volume Laterality Blood specimen 08/24/2018 12:25 9 (specimen) PM TELEVISION REPAIR TEACHER 12:30 PM TELEVISION REPAIR TEACHER Edin Hu MD LAB - BLOOD BANK TEST ORDER Performing Organization Address City/State/ZIP Code Phon e Number M [facility] [address] [phone] [facility] [address] [address], [facility] [phone] documented in this encounter 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
--- OUTSIDE RECORDS SUMMARY | 2022-05-02 12:46 | XMS_ITS | Encounter Summary ---
:1970 Author Organization [place] Address [address] [place] [address] Care Team Providers Name Role Phone No Ref-Primary, Physician Primary Care Provider [phone] Reason for Visit Reason Onset Date Comments Referral 08/28/2018 Via fax from [place] [facility] Encounter Details Date Type Department Care Team Description 08/28/2018 Documentation Only [facility] None Refe rral (Via fax from [facility] [place] [facility]) [address] [place] [address] Social History Tobacco Use Types Packs/Day [...] 08/28/2018 1:36 PM CST Received fax from [facility]; looks as if she is a return PT, [facility] TRIMMER Citlali Dixon - 08/28/2018 1:36 PM CST Received reply fax stating PT has only had treatment, but no provider yet, so it looks like they need the 2nd opinion from [place] [facility]. Message sent to Vinh to determine if PT should be scheduled by our BMT or sent directly to the BMT Clinic. TRIMMER documented in 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 Care Teams Central Sterile Technician Relationship Specialty Start Date End Date No Ref-Primary, Physician PCP - General 09/30/17 documented as of this encounter
--- OUTSIDE RECORDS SUMMARY | 2022-05-02 12:46 | XMS_ITS | Encounter Summary ---
:1970 Author Organization [place] Address [address] [place] [address] Care Team Providers Name Role Phone No Ref-Primary, Physician Primary Care Provider [phone] Reason for Visit Reason Comments Blood Transfusion 1 unit PRBC's Encounter Details Date Type Department Care Team Description 09/17/2018 Infusion Therapy [facility] India [facility] Visit Cancer Center FENG Leyva disorder (H) (Primary Dx) [facility] ONCOLOGY [facility] HEMATOLOGY [facility] [address] [address] [place] [address] [place] [address] [phone] Social History Tobacco Use Types Packs/Day Years [...] Comments Blood Pressure 107/72 09/17/2018 9:46 AM CAN BANDER OPERATOR Pulse 82 09/17/2018 9:46 AM CAN BANDER OPERATOR Temperature 37 ??C (98.6 ??F) 09/17/2018 9:46 AM CAN BANDER OPERATOR Respiratory Rate 16 09/17/2018 9:46 AM CAN BANDER OPERATOR Oxygen Saturation 99% 09/17/2018 9:46 AM CAN BANDER OPERATOR Inhaled Oxygen Concentration - - Weight - - Height - - Body Mass Index - - documented in this encounter Progress Notes Fatuma Amador RN - 09/17/2018 8:00 AM CST Infusion Nursing Note: Jennifer Dobbs presents today for 1 unit PRBC's. Patient seen by provider today: No Outbound Telemarketing Representative present during visit today: Not Applicable. Note: [...] . Departure Mode: Ambulatory. EMMA RITCHIE RN BANDER OPERATOR documented in this encounter Plan of Treatment Not on filedocumented as of this encounter Procedures Procedure Name Priority Date/Time Associated Diagnosis Comme nts TRANSFUSE RED BLOOD Routine 09/17/2018 8:30 AM Myeloproliferat otonile disorder CELL UNIT CAN BANDER OPERATOR (H) documented in this encounter Results Transfuse red blood cell unit (09/17/2018 9:47 AM CAN BANDER OPERATOR) India Sharp CULLET WASHER IP NURSING BLOOD ADMINISTRAT ON Transfuse red blood cell unit (09/17/2018 9:47 AM CAN BANDER OPERATOR) India Sharp CULLET WASHER IP NURSING BLOOD ADMINISTRAT ON ABO/Rh type and screen (09/16/2018 5:40 PM CAN BANDER OPERATOR) [facility] Method Time Signature Units Ordered 1 09/16/2018 [facility] 6:38 PM [facility] ABO A 09/16/2018 [facility] 6:33 PM [facility] RH(D) Pos [facility] Antibody Neg 09/16/2018 [facility] Screen 6:33 PM [facility] Test Valid [place] 09/16/2018 [facility] Only At [facility] 6:38 PM [facility] Specimen 09/19/2018 09/16/2018 [facility] Expires 6:38 PM [facility] Crossmatch Red Blood 09/16/2018 [facility] Cells 6:38 PM [facility] Specimen Anatomical Collection Method Collection Time Receive d Time (Source) Location / / Volume Laterality Blood specimen 09/16/2018 5:40 PM 019 5:43 (specimen) CAN BANDER OPERATOR PM CAN BANDER OPERATOR India Sharp NP LAB - BLOOD BANK TEST ORDER Performing Organization Address City/State/ZIP Code Phon e Number M [facility] [address] [place], [place] [address] M [facility] [address] [phone] documented in this encounter Visit Diagnoses Diagnosis 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
--- OUTSIDE RECORDS SUMMARY | 2022-05-02 12:46 | XMS_ITS | Encounter Summary ---
:1970 Author Organization [place] Address [address] [place] [address] Care Team Providers Name Role Phone No Ref-Primary, Physician Primary Care Provider [phone] Reason for Visit Reason Comments Blood Transfusion 1 unit packed red blood cell s Encounter Details Date Type Department Care Team Description 08/24/2018 Infusion Therapy [facility] Edin Hu, Melania oproliferative Visit Cancer Center MD disorder (H) (Primary Dx) [facility] ONCOLOGY [facility] Medical Ctr HEMATOLOGY [address] [place] [phone] Social History Tobacco Use Types Packs/Day Years [...] Comments Blood Pressure 124/59 08/24/2018 3:57 PM DIRECTOR OF FINANCIAL AID Pulse 82 08/24/2018 3:57 PM DIRECTOR OF FINANCIAL AID Temperature 37.3 ??C (99.2 ??F) 08/24/2018 3:57 PM DIRECTOR OF FINANCIAL AID Respiratory Rate 16 08/24/2018 3:57 PM DIRECTOR OF FINANCIAL AID Oxygen Saturation 99% 08/24/2018 3:57 PM DIRECTOR OF FINANCIAL AID Inhaled Oxygen Concentration - - Weight - - Height - - Body Mass Index - - documented in this encounter Progress Notes Cathi Perkins RN - 08/24/2018 1:00 PM CST Infusion Nursing Note: Jennifer Dobbs presents today for 1 unit packed red blood cells. Patient seen by provider today: No Security Flex Officer present during visit today: Not Applicable. Note: Patient fatigued, SOB, dizzy and weak. Intravenous Access: Labs drawn without difficulty. Peripheral IV placed. Patient had gone to [facility] instead of [facility] for T&C. Therefore, ABO redrawn. Treatment [...] . Departure Mode: Ambulatory. Cathi Perkins RN CTOR OF FINANCIAL AID documented in this encounter Plan of Treatment Not on filedocumented as of this encounter Procedures Procedure Name Priority Date/Time Associated Diagnosis Comme nts TRANSFUSE RED Routine 08/24/2018 2:38 Myeloproliferative BLOOD CELL UNIT PM DIRECTOR OF FINANCIAL AID disorder (H) BLOOD COMPONENT Routine 08/24/2018 1:17 Myeloproliferative Res ults for this PM DIRECTOR OF FINANCIAL AID disorder (H) procedure are i n the results section. ABO/RH TYPE AND Routine 08/24/2018 1:17 Myeloproliferative Res ults for this SCREEN PM DIRECTOR OF FINANCIAL AID disorder (H) procedure are i n the results section. documented in this encounter Results Transfuse red blood cell unit (08/24/2018 3:58 PM DIRECTOR OF FINANCIAL AID) Edin Hu MD IP NURSING BLOOD ADMINISTRAT ON Transfuse red blood cell unit (08/24/2018 3:58 PM DIRECTOR OF FINANCIAL AID) Edin Hu MD IP NURSING BLOOD ADMINISTRAT ON Blood component (08/24/2018 1:17 PM DIRECTOR OF FINANCIAL AID) [facility] Method Time Signature Unit Number [id number] 08/24/2018 [facility] 2:31 PM [facility] Blood Red Blood 08/24/2018 [facility] Component Cells 2:31 PM [facility] Reduced Division 00 08/24/2018 [facility] Number 2:31 PM [facility] Status of Released to 08/24/2018 [place] Unit care unit 11:52 PM [facility] Blood Product [id number] 08/24/2018 [facility] Code 2:31 PM [facility] Unit Status ISS [facility] Specimen Anatomical Collection Method Collection Time Receive d Time (Source) Location / / Volume Laterality 08/24/2018 1:17 PM 9 1:48 DIRECTOR OF FINANCIAL AID PM DIRECTOR OF FINANCIAL AID Edin Hu MD LABORATORY Performing Organization Address City/[facility]/ZIP Code Phon e Number M [facility] [address] [place], [place] [address] [facility] [address] [place], [place] [address], [facility] [phone] ABO/Rh type and screen (08/24/2018 1:17 PM DIRECTOR OF FINANCIAL AID) [facility] gist Method Time Signature Units Ordered 1 08/24/2018 [facility] 2:31 PM [facility] ABO A 08/24/2018 [facility] 2:33 PM [facility] RH(D) Pos [facility] Antibody Neg 08/24/2018 [facility] Screen 2:33 PM [facility] Test Valid [place] 08/24/2018 [facility] Only At [facility] 2:31 PM [facility] Specimen 08/27/2018 08/24/2018 [facility] Expires 2:31 PM [facility] Crossmatch Red Blood 08/24/2018 [facility] Cells 2:31 PM [facility] Specimen Anatomical Collection Method Collection Time Receive d Time (Source) Location / / Volume Laterality Blood specimen 08/24/2018 1:17 PM 019 1:48 (specimen) DIRECTOR OF FINANCIAL AID PM DIRECTOR OF FINANCIAL AID Edin Hu MD LAB - BLOOD BANK TEST ORDER Performing Organization Address City/[facility]/ZIP [facility] Phon e Number M [facility] [address] [place], [place] [address] [facility] [address] [place], [place] [address], [facility] [phone] documented in this encounter Visit Diagnoses Diagnosis 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
--- OUTSIDE RECORDS SUMMARY | 2022-05-02 12:46 | XMS_ITS | Encounter Summary ---
:1970 Author Organization [place] Address [address] [place] [address] Care Team Providers Name Role Phone No Ref-Primary, Physician Primary Care Provider [phone] Encounter Details Date Type Department Care [...] on filedocumented in this encounter Care Teams Excellence Consultant Relationship Specialty Start Date End Date No Ref-Primary, Physician PCP - General 09/30/17 documented as of this encounter
--- OUTSIDE RECORDS SUMMARY | 2022-05-02 12:46 | XMS_ITS | Encounter Summary ---
:1970 Author Organization [place] Address [address] [place] [address] Care Team Providers Name Role Phone No Ref-Primary, Physician Primary Care Provider [phone] Reason for Visit Reason Comments Blood Transfusion 2 units prbc Encounter Details Date Type Department Care Team Description 10/26/2018 Infusion [facility] Rajani Miles Myelo proliferative Therapy Visit Cancer Center L, CERTIFIED MEETING PROFESSIONAL IMPOSER disorder (H) (Primary Dx) [facility] ONCOLOGY [facility] Medical [facility] HEMATOLOGY [place] [address] [address] [place] [address] [place] [phone] Social History Tobacco Use Types Packs/Day Years [...] PRBC. Patient seen by provider today: No Logistics Planning Manager present during visit today: Not Applicable. [...] type and screen (10/25/2018 11:10 AM CDT) [facility] Method Time Signature Units Ordered 2 10/26/2018 [place] 8:21 AM CDT [facility] ABO A 10/25/2018 [place] 11:50 AM CDT [facility] RH(D) Pos [facility] Antibody Neg 10/25/2018 [place] Screen 11:50 AM T [facility] Test Valid [place] 10/25/2018 [facility] Only At [facility] 11:51 AM [facility] Specimen 10/28/2018 10/25/2018 [place] Expires 11:51 AM [facility] Crossmatch Red Blood 10/26/2018 [place] Cells 8:21 AM [facility] Specimen Anatomical Collection Method Collection Time Receive d Time (Source) Location / / Volume Laterality Blood specimen 10/25/2018 11:10 9 (specimen) AM CDT 11:12 AM CDT Rajani Miles APRN IMPOSER LAB - BLOOD BANK TEST ORDE R Performing Organization Address City/State/ZIP Code Phon e Number M [facility] [address] [place] [address] [facility] [address] [phone] documented in this encounter Visit Diagnoses Diagnosis 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
--- OUTSIDE RECORDS SUMMARY | 2022-05-02 12:46 | XMS_ITS | Encounter Summary ---
:1970 Author Organization [place] Address [address] [facility] [place] [address] Care Team Providers Name Role Phone No Ref-Primary, Physician Primary Care Provider [phone] Encounter Details Date Type Department Care Team Description 06/26/2018 Medical Correspondence [facility] Scan, CLINIC REFERRAL Health Info Mgmt Non-Provider [facility]OLOG Sr[facility] [address] [place] [phone] Social History Tobacco Use Types Packs/Day [...] filedocumented in this encounter Care Teams Mold Release Worker Relationship Specialty Start Date End Date No Ref-Primary, Physician PCP - General 09/30/17 documented as of this encounter
--- OUTSIDE RECORDS SUMMARY | 2022-05-02 12:46 | XMS_ITS | Encounter Summary ---
:1970 Author Organization [place] Address [address] [place] [address] Care Team Providers Name Role Phone No Ref-Primary, Physician Primary Care Provider Reason for Visit Reason Onset Date Comments Referral 10/28/2018 Via fax from [facility] Encounter Details Date Type Department Care Team Description 10/28/2018 Telephone [facility] None Re ferral (Via fax from [facility]) [address] [place], [place] [phone] Social History Tobacco Use Types Packs/Day [...] Referring provider: Edin Hu Referring provider???s clinic: [facility] Reason for visit/diagnosis: Myeloproliferative Disorder and Splenomegaly RECORDS INFORMATION: Were the records received with the referral (via Rightfax)? Yes ADDITIONAL INFORMATION: Please fax referral/records to Oncology records team upon scheduling documented in 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 Care Teams Scaler Packer Relationship Specialty Start Date End Date No Ref-Primary, Physician PCP - General 09/30/17 documented as of this encounter
--- OUTSIDE RECORDS SUMMARY | 2022-05-02 12:46 | XMS_ITS | Encounter Summary ---
:1970 Author Organization [place] Address [address] [place] [address] Care Team Providers Name Role Phone No Ref-Primary, Physician Primary Care Provider [phone] Encounter Details Date Type Department Care Team Description 08/21/2018 Medical Correspondence [facility] Scan, CONSULT ORDER Health Info Mgmt Non-Provider [facility] Srvcs [address] [place] [phone] Social History Tobacco Use Types Packs/Day [...] on filedocumented in this encounter Care Teams Healthcare Educator Relationship Specialty Start Date End Date No Ref-Primary, Physician PCP - General 09/30/17 documented as of this encounter
--- OUTSIDE RECORDS SUMMARY | 2022-05-02 12:46 | XMS_ITS | Encounter Summary ---
:1970 Author Organization [place] Address [address] [place] [address] Care Team Providers Name Role Phone No Ref-Primary, Physician Primary Care Provider [phone] Encounter Details Date Type Department Care Team Description 06/14/[address] [facility] Renetta Hu MD [place] [facility] ONCOLOGY [facility] [place] HEMATOLOGY [address] [facility] [address] [place] [address] 200 [place] [address] [place] [address] (Wo rk) Social History Tobacco [...] Comments Blood Pressure 131/59 06/14/2018 3:18 PM BRAKE REPAIR MECHANIC Pulse 79 06/14/2018 3:18 PM BRAKE REPAIR MECHANIC Temperature 35.7 ??C (96.2 ??F) 06/14/2018 3:18 PM BRAKE REPAIR MECHANIC Respiratory Rate 18 06/14/2018 3:18 PM BRAKE REPAIR MECHANIC Oxygen Saturation 97% 06/14/2018 3:18 PM BRAKE REPAIR MECHANIC Inhaled Oxygen Concentration - - Weight 103 kg (227 lb) 06/14/2018 10:32 AM BRAKE REPAIR MECHANIC Height 170.2 cm (5' 7) 06/14/2018 10:32 AM BRAKE REPAIR MECHANIC Body Mass Index 35.55 06/14/2018 10:32 AM BRAKE REPAIR MECHANIC documented in this encounter Medications at Time of Discharge Medication Sig Dispensed Refills Start Date End Date oxyCODONE (ROXICODONE) 5 Take 1-2 tablets 30 tablet 0 08/28 MG immediate release (5-10 mg) by mouth tablet every 6 hours as needed for moderate to severe pain senna-docusate Take 1 tablet by 60 tablet 1 08/28/2015 (SENOKOT-S;PERICOLACE) mouth 2 times daily 8.6-50 MG per tablet LORAZEPAM PO Take 0.5 mg by mouth [...] reaction. Pt discharged to home with spouse. E REPAIR MECHANIC documented in this encounter Plan of Treatment Not on filedocumented as of this encounter Procedures Procedure Name Priority Date/Time Associated Diagnosis Comme nts TRANSFUSE RED BLOOD Routine 06/14/2018 12:10 PM CELL UNIT BRAKE REPAIR MECHANIC BLOOD COMPONENT Routine 06/14/2018 10:52 AM Resul ts for this BRAKE REPAIR MECHANIC procedure are i n the results section. ABO/RH TYPE AND STAT 06/14/2018 10:52 AM Resul ts for this SCREEN BRAKE REPAIR MECHANIC procedure are i n the results section. documented in this encounter Results Transfuse red blood cell unit (06/14/2018 5:08 PM BRAKE REPAIR MECHANIC) Edin Hu MD IP NURSING BLOOD ADMINISTRAT ON Transfuse red blood cell unit (06/14/2018 5:08 PM BRAKE REPAIR MECHANIC) Edin Hu MD IP NURSING BLOOD ADMINISTRAT ON Blood component (06/14/2018 10:52 AM BRAKE REPAIR MECHANIC) [facility] Method Time Signature Unit Number [id number] 06/14/2018 [facility] 11:49 AM [facility] Blood Red Blood 06/14/2018 [place] Component Cells 11:49 AM [facility] Reduced Division 00 06/14/2018 [facility] Number 11:49 AM [facility] Status of Released to 06/14/2018 [place] Unit care unit 11:55 PM [facility] Blood Product [id number] 06/14/2018 [facility] Code 11:49 AM [facility] Unit Status ISS [facility] Specimen Anatomical Collection Method Collection Time Receive d Time (Source) Location / / Volume Laterality 06/14/2018 10:52 06/14/2018 AM BRAKE REPAIR MECHANIC 11:06 AM BRAKE REPAIR MECHANIC Edin Hu MD LABORATORY Performing Organization Address City/State/ZIP Code Phon e Number M [facility] [address] [facility] [place] [address] [facility] [address] [place] [address], [facility] [phone] ABO/Rh type and screen (06/14/2018 10:52 AM BRAKE REPAIR MECHANIC) [facility] Method Time Signature Units Ordered 1 06/14/2018 [place] 11:27 AM [facility] ABO A 06/14/2018 [facility] 11:45 AM [facility] RH(D) Pos [facility] Antibody Neg 06/14/2018 [facility] Screen 11:45 AM [facility] Test Valid [place] 06/14/2018 [facility] Only At [facility] [place] [facility] 11:27 AM [facility] Specimen 06/17/2018 06/14/2018 [place] Expires 11:27 AM [facility] Crossmatch Red Blood 06/14/2018 [place] Cells 11:27 AM [facility] Specimen Anatomical Collection Method Collection Time Receive d Time (Source) Location / / Volume Laterality Blood specimen 06/14/2018 10:52 8 (specimen) AM BRAKE REPAIR MECHANIC 11:06 AM BRAKE REPAIR MECHANIC Edin Hu MD LAB - BLOOD BANK TEST ORDER Performing Organization Address City/State/ZIP Code Phon e Number [facility] [address] [place] [address] [facility] [address] [place] [address], [place] [phone] documented in this encounter Visit Diagnoses Not on filedocumented in this encounter Care Teams Drug Enforcement Agent Relationship Specialty Start Date End Date No Ref-Primary, Physician PCP - General 09/30/17 documented as of this encounter
--- OUTSIDE RECORDS SUMMARY | 2022-05-02 12:46 | XMS_ITS | Encounter Summary ---
:1970 Author Organization [place] Address [address] [place] [address] Care Team Providers Name Role Phone No [...] filedocumented in this encounter Care Teams Fur Vault Attendant Relationship Specialty Start Date End Date No Ref-Primary, Physician PCP - General 09/30/17 documented as of this encounter
--- OUTSIDE RECORDS SUMMARY | 2022-05-02 12:46 | XMS_ITS | Encounter Summary ---
:1970 Author Organization [place] Address [address] [place] [address] Care Team Providers Name Role Phone No Ref-Primary, Physician Primary Care Provider [phone] Encounter Details Date Type Department Care Team Description 09/25/2018 [facility] Edin Hu MD IN ONCOLOGY HEMATOLOGY [address] [facility] [address] [place] [address] Myeloproliferative Encounter [facility] India Sharp NP IN ONCOLOGY HEMATOLOGY [address] [facility] [address] [place], [place] [id number] disorder (H) [address] [place] [address] Social History Tobacco Use Types [...] Results Blood component (09/25/2018 7:28 AM CDT) [facility] gist Method Time Signature Unit Number [id number] 09/25/2018 [facility] 8:09 AM [facility] Blood Red Blood 09/25/2018 [place] Component Cells 8:09 AM [facility] HOSPITAL Reduced Division 00 09/25/2018 [facility] Number 8:09 AM [facility] Status of Released to 09/25/2018 [place] Unit care unit 11:52 PM [facility] Blood Product [id number] 09/25/2018 [facility] Code 8:09 AM [facility] Unit Status ISS [facility] Specimen Anatomical Collection Method Collection Time Receive d Time (Source) Location / / Volume Laterality 09/25/2018 7:28 AM 9 7:29 CDT AM CDT India Sharp NP LABORATORY Performing Organization Address City/State/ZIP Code Phon e Number M [facility] [address] [place], [place] [address] [facility] [address] [place], [place] [address], [facility] [phone] Blood component (09/25/2018 7:28 AM CDT) [facility] Method Time Signature Unit Number [id number] 09/25/2018 [place] 8:09 AM [facility] Blood Red Blood 09/25/2018 [place] Component Cells 8:09 AM [facility] HOSPITAL Reduced Division 00 09/25/2018 [place] Number 8:09 AM [facility] Status of Released to 09/25/2018 [place] Unit care unit 11:52 PM [facility] Blood Product [id number] 09/25/2018 [place] Code 8:09 AM [facility] Unit Status ISS [facility] Specimen Anatomical Collection Method Collection Time Receive d Time (Source) Location / / Volume Laterality 09/25/2018 7:28 AM 9 7:29 CDT AM CDT India Sharp NP LABORATORY Performing Organization Address City/State/ZIP Code [facility] [address] [place], [place] [address] [facility] [address] [place], [place] [address], [facility] [phone] ABO/Rh type and screen (09/25/2018 7:28 AM CDT) [facility] Signature Units Ordered 2 09/25/2018 [place] 8:09 AM [facility] ABO A 09/25/2018 [place] 8:08 AM [facility] RH(D) Pos [facility] Antibody Neg 09/25/2018 [place] Screen 8:08 AM [facility] Test Valid [place] 09/25/2018 [place] Only At [facility] 8:09 AM [facility] Specimen 09/28/2018 09/25/2018 [place] Expires 8:09 AM [facility] Crossmatch Red Blood 09/25/2018 [place] Cells 8:09 AM [facility] Specimen Anatomical Collection Method Collection Time Receive d Time (Source) Location / / Volume Laterality Blood specimen 09/25/2018 7:28 AM 019 7:29 (specimen) CDT AM CDT India Sharp NP LAB - BLOOD BANK TEST ORDER Performing Organization Address City/State/ZIP Code Phon e Number M [facility] [address] [place], [place] [address] [facility] [address] [place], [place] [address] [place] [address] documented in this encounter 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
--- OUTSIDE RECORDS SUMMARY | 2022-05-02 12:46 | XMS_ITS | Encounter Summary ---
:1970 Author Organization [place] Address [address] [place] [address] Care Team Providers Name Role Phone No [...] on filedocumented in this encounter Care Teams Paperboard Machine Operator Relationship Specialty Start Date End Date No Ref-Primary, Physician PCP - General 09/30/17 documented as of this encounter
--- OUTSIDE RECORDS SUMMARY | 2022-05-02 12:46 | XMS_ITS | Encounter Summary ---
:1970 Author Organization [place] Address [address] [place] [address] Care Team Providers Name Role Phone No [...] filedocumented in this encounter Care Teams Head Of Ict Relationship Specialty Start Date End Date No Ref-Primary, Physician PCP - General 09/30/17 documented as of this encounter
--- OUTSIDE RECORDS SUMMARY | 2022-05-02 12:46 | XMS_ITS | Encounter Summary ---
:1970 Author Organization [place] Address [address] [place] [address] Care Team Providers Name Role Phone No Ref-Primary, Physician Primary Care Provider [phone] Reason for Visit Reason Onset Date Comments Referral 08/31/2018 Via fax from [place] [facility] Encounter Details Date Type Department Care Team Description 08/31/2018 Telephone [facility] Cordelia Waldron, Referr al (Via fax from [facility]) [address] [place] [address] [phone] Social History Tobacco Use Types Packs/Day Years [...] Notes Telephone Encounter - Citlali Dixon - 09/03/2018 3:02 PM CST Per Beckie, 2nd call attempt to schedule PT with either Dr. So or Dr. Waldron. [facility] for PT to CB and schedule WAY MAINTENANCE WORKER Telephone Encounter - Citlali Dixon - 09/03/2018 6:11 AM CST Follow up message to Beckie to let her know we never heard back from the PT and to let me know if there is further Follow-up needed or how to schedule should PT return the call. WAY MAINTENANCE WORKER Telephone Encounter - Citlali Dixon - 08/31/2018 2:48 PM CST ONCOLOGY INTAKE: Records Information APPT INFORMATION: Referring provider: Edin Hu Referring provider???s clinic: [facility] Reason for visit/diagnosis: 2nd Opinion - Myeloproliferative Disorder/Myelofibrosis possible clinical trial Were the records received with the referral (via Rightfax)? No - Majority in [facility] Has patient been seen for any external appt for this diagnosis (enter clinic/location)? Please confirm with PT upon scheduling ADDITIONAL INFO: Per message from Beckie, this PT needs to see Dr. Waldron. She is able to schedule her for this Friday09/02/18 @ 7am. It appears that the records are already in [facility], but I LVM for [facility] to confirm this. I also LVM for the PT re: this and to confirm the appt date and time. Please schedule if we have what we need and if she can make this work. Beckie is requesting a message with confirmation. WAY MAINTENANCE WORKER documented in 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 Care Teams Poultry Cutter Relationship Specialty Start Date End Date No Ref-Primary, Physician PCP - General 09/30/17 documented as of this encounter
--- OUTSIDE RECORDS SUMMARY | 2022-05-02 12:46 | XMS_ITS | Encounter Summary ---
:1970 Author Organization [place] Address [address] [place] [address] Care Team Providers Name Role Phone No Ref-Primary, Physician Primary Care Provider [phone] Encounter Details Date Type Department Care Team Description 09/16/2018 [facility] Edin Hu MD [place] ONCOLOGY HEMATOLOGY [address] [facility] 200 [place] [address] Myeloproliferative Encounter [facility] India Sharp NP [place] ONCOLOGY HEMATOLOGY [address] [facility] 200 [place], [place] [id number] disorder (H) [address] [place] [address] Social History Tobacco Use Types [...] 5:40 Myeloproliferative Res ults for this PM ORGANIC PREPARATION ANALYST disorder (H) procedure are i n the results section. ABO/RH TYPE AND Routine 09/16/2018 5:40 Myeloproliferative Res ults for this SCREEN PM ORGANIC PREPARATION ANALYST disorder (H) procedure are i n the results section. documented in this encounter Results Blood component (09/16/2018 5:40 PM ORGANIC PREPARATION ANALYST) [employer] Method Time Signature Unit Number [id number] 09/16/2018 [facility] 6:38 PM [facility] Blood Red Blood 09/16/2018 [facility] Component Cells 6:38 PM [facility] Leukocyte HOSPITAL Reduced Division 00 09/16/2018 [facility] Number 6:38 PM [facility] Status of Released to 09/17/2018 [place] Unit care unit 11:52 PM [facility] Blood Product [id number] 09/16/2018 [facility] Code 6:38 PM [facility] Unit Status ISS [facility] Specimen Anatomical Collection Method Collection Time Receive d Time (Source) Location / / Volume Laterality 09/16/2018 5:40 PM 9 5:43 ORGANIC PREPARATION ANALYST PM ORGANIC PREPARATION ANALYST India Sharp NP LABORATORY Performing Organization Address City/State/ZIP Code Phon e Number M [facility] [address] [place], [place] 55[address] [facility] [address] [place], [place] [address] [facility] [phone] ABO/Rh type and screen (09/16/2018 5:40 PM ORGANIC PREPARATION ANALYST) [employer] Method Time Signature Units Ordered 1 09/16/2018 [facility] 6:38 PM [facility] ABO A 09/16/2018 [facility] 6:33 PM [facility] RH(D) Pos [facility] Antibody Neg 09/16/2018 [facility] Screen 6:33 PM [facility] Test Valid [place] 09/16/2018 [facility] Only At [facility] 6:38 PM [facility] Specimen 09/19/2018 09/16/2018 [facility] Expires 6:38 PM [facility] Crossmatch Red Blood 09/16/2018 [facility] Cells 6:38 PM [facility] Specimen Anatomical Collection Method Collection Time Receive d Time (Source) Location / / Volume Laterality Blood specimen 09/16/2018 5:40 PM 019 5:43 (specimen) ORGANIC PREPARATION ANALYST PM ORGANIC PREPARATION ANALYST India Sharp NP LAB - BLOOD BANK TEST ORDER Performing Organization Address City/State/ZIP Code Phon e Number [place] [address] [address] [place] [address] [facility] [address] [phone] documented in this encounter 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
--- OUTSIDE RECORDS SUMMARY | 2022-05-02 12:46 | XMS_ITS | Encounter Summary ---
:1970 Author Organization [place] Address [address] [place] [address] Care Team Providers Name Role Phone No Ref-Primary, Physician Primary Care Provider [phone] Reason for Visit Reason Comments Blood Transfusion 2 units PRBC Encounter Details Date Type Department Care Team Description 09/25/2018 Infusion Therapy [facility] India Sharp [facility] FENG Leyva disorder (H) (Primary Dx) [facility] ONCOLOGY [facility] HEMATOLOGY [facility] [address] [address] [place] [address] [place] [address] [phone] Social History Tobacco Use Types Packs/Day Years [...] PRBC. Patient seen by provider today: No Program Strategist present during visit today: Not Applicable. Note: [...] unit (09/25/2018 11:57 AM CDT) India Sharp NIGHT CLERK IP NURSING BLOOD ADMINISTRAT ON Transfuse red blood cell unit (09/25/2018 10:16 AM CDT) India Sharp NP IP NURSING BLOOD ADMINISTRAT ON ABO/Rh type and screen (09/25/2018 7:28 AM CDT) [facility] Time Signature Units Ordered 2 09/25/2018 [place] 8:09 AM CDT [facility] ABO A 09/25/2018 [facility] 8:08 AM [facility] RH(D) Pos [facility] Antibody Neg 09/25/2018 [facility] Screen 8:08 AM [facility] Test Valid [place] 09/25/2018 [facility] Only At [facility] 8:09 AM [facility] Specimen 09/28/2018 09/25/2018 [facility] Expires 8:09 AM [facility] Crossmatch Red Blood 09/25/2018 [facility] Cells 8:09 AM [facility] Specimen Anatomical Collection Method Collection Time Receive d Time (Source) Location / / Volume Laterality Blood specimen 09/25/2018 7:28 AM 019 7:29 (specimen) CDT AM CDT India Sharp NP LAB - BLOOD BANK TEST ORDER Performing Organization Address City/State/ZIP Code Phon e Number M [facility] [address] [place] [address] [facility] [address] [phone] documented in this encounter Visit Diagnoses Diagnosis 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
--- OUTSIDE RECORDS SUMMARY | 2022-05-02 12:46 | XMS_ITS | Encounter Summary ---
:1970 Author Organization [place] Address [address] [place] [address] Care Team Providers Name Role Phone No Ref-Primary, Physician Primary Care Provider [phone] Encounter Details Date Type Department Care [...] on filedocumented in this encounter Care Teams Dining Car Conductor Relationship Specialty Start Date End Date No Ref-Primary, Physician PCP - General 09/30/17 documented as of this encounter
--- OUTSIDE RECORDS SUMMARY | 2022-05-02 12:46 | XMS_ITS | Encounter Summary ---
:1970 Author Organization [place] Address [facility] [place] [address] Care Team Providers Name Role Phone No Ref-Primary, Physician Primary Care Provider [phone] Encounter Details Date Type Department Care Team Description 07/31/2018 Orders Only [facility] Cancer Santana Hu MD [facility] ONCOLOGY HEMATOLOGY [facility] [place] [address] [place] [address] [facility] [address] [place] [address] [place] [address] [phone] Social History Tobacco Use Types Packs/Day Years [...] on filedocumented in this encounter Care Teams Exhaust Equipment Operator Relationship Specialty Start Date End Date No Ref-Primary, Physician PCP - General 09/30/17 documented as of this encounter
--- OUTSIDE RECORDS SUMMARY | 2022-05-02 12:46 | XMS_ITS | Encounter Summary ---
:1970 Author Organization [place] Address [address] [place] [address] Care Team Providers Name Role Phone No Ref-Primary, Physician Primary Care Provider [phone] Encounter Details Date Type Department Care Team Description 06/28/2018 [facility] Edin Hu, Myelopro liferative Encounter [facility] Laboratory MD disorder (H) (Primary Dx) [address] HEMATOLOGY [place], [place] [address] [place] [address] [facility] 200 [place], [place] [id number] Social History Tobacco Use Types Packs/Day Years [...] 10:45 Myeloproliferative Re sults for this AM VP PURCHASING disorder (H) procedure are i n the results section. BLOOD COMPONENT Routine 06/28/2018 10:45 Myeloproliferative Re sults for this AM VP PURCHASING disorder (H) procedure are i n the results section. ABO/RH TYPE AND Routine 06/28/2018 10:45 Myeloproliferative Re sults for this SCREEN AM VP PURCHASING disorder (H) procedure are i n the results section. documented in this encounter Results Blood component (06/28/2018 10:45 AM VP PURCHASING) frenting Method Time Signature Unit Number [id number] 06/29/2018 [facility] 7:58 AM [facility] Blood Red Blood 06/29/2018 [facility] Component Cells 7:58 AM [facility] Reduced Division 00 06/29/2018 [facility] Number 7:58 AM [facility] Status of Released to 06/29/2018 [place] Unit care unit 11:52 PM [facility] Blood Product [id number] 06/29/2018 [facility] Code 7:58 AM [facility] Unit Status ISS [facility] Specimen Anatomical Collection Method Collection Time Receive d Time (Source) Location / / Volume Laterality 06/28/2018 10:45 06/28/2018 AM [facility]CH[facility] 11:36 AM [facility] Edin Hu MD LABORATORY Performing Organization Address City/State/ZIP Code Phon e Number M [facility] [address] [place], [place] [address] [phone] [facility] [address] [phone] Blood component (06/28/2018 10:45 AM VP PURCHASING) frenting Method Time Signature Unit Number [id number] 06/29/2018 [facility] 7:58 AM [facility] Blood Red Blood 06/29/2018 [facility] Component Cells 7:58 AM [facility] HOSPITAL Reduced Division 00 06/29/2018 [facility] Number 7:58 AM [facility] Status of Released to 06/29/2018 [place] Unit care unit 11:52 PM [facility] Blood Product [id number] 06/29/2018 [facility] Code 7:58 AM [facility] Unit Status ISS [facility] Specimen Anatomical Collection Method Collection Time Receive d Time (Source) Location / / Volume Laterality 06/28/2018 10:45 06/28/2018 AM [facility] 11:36 AM [facility] Edin Hu MD LABORATORY Performing Organization Address City/State/ZIP Code Phon e Number M [facility] [address] [place], [place] [address] [facility] [address] [place], [place] [address], [facility] [phone] ABO/Rh type and screen (06/28/2018 10:45 AM VP PURCHASING) [facility] Method Time Signature Units Ordered 2 06/29/2018 [facility] 7:58 AM [facility] ABO A 06/28/2018 [facility] 12:17 PM [facility] RH(D) Pos [facility] Antibody Neg 06/28/2018 [facility] Screen 12:17 PM [facility] Test Valid [place] 06/28/2018 [facility] Only At [facility] 12:18 PM [facility] Specimen 07/01/2018 06/28/2018 [facility] Expires 12:18 PM [facility] Crossmatch Red Blood 06/29/2018 [facility] Cells 7:58 AM [facility] Specimen Anatomical Collection Method Collection Time Receive d Time (Source) Location / / Volume Laterality Blood specimen 06/28/2018 10:45 8 (specimen) AM [facility] 11:36 AM [facility] Edin Hu MD LAB - BLOOD BANK TEST ORDER Performing Organization Address City/[facility]/ZIP [facility] Phon e Number M [facility] [address] [place], [place] [address] [facility] [address] [place], [place] [address], [facility] [phone] documented in this encounter Visit Diagnoses Diagnosis 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
--- OUTSIDE RECORDS SUMMARY | 2022-05-02 12:46 | XMS_ITS | Encounter Summary ---
:1970 Author Organization [place] Address [address] [place] [address] Care Team Providers Name Role Phone No Ref-Primary, Physician Primary Care Provider [phone] Encounter Details Date Type Department Care Team Description 08/02/2018 Hospital Encounter M [facility] Renetta Hu MD [facility] [place] [facility] [address] [facility] [place] [address] [address] [facility] [phone] [address] [place], [place] [address] (Wo rk) Social History [...] on filedocumented in this encounter Care Teams Burlap Bag Sewer Relationship Specialty Start Date End Date No Ref-Primary, Physician PCP - General 09/30/17 documented as of this encounter
--- OUTSIDE RECORDS SUMMARY | 2022-05-02 12:46 | XMS_ITS | Encounter Summary ---
:1970 Author Organization [place] Address [address] [place] [address] Care Team Providers Name Role Phone No [...] on filedocumented in this encounter Care Teams Pocket Setter Lockstitch Relationship Specialty Start Date End Date No Ref-Primary, Physician PCP - General 09/30/17 documented as of this encounter
--- OUTSIDE RECORDS SUMMARY | 2022-05-02 12:46 | XMS_ITS | Encounter Summary ---
:1970 Author Organization [place] Address [address] [place] [address] Care Team Providers Name Role Phone No [...] on filedocumented in this encounter Care Teams Emd Teacher Relationship Specialty Start Date End Date No Ref-Primary, Physician PCP - General 09/30/17 documented as of this encounter
--- OUTSIDE RECORDS SUMMARY | 2022-05-02 12:46 | XMS_ITS | Encounter Summary ---
:1970 Author Organization [place] Address [address] [place] [address] Care Team Providers Name Role Phone No [...] on filedocumented in this encounter Care Teams Teaching Supervisor Relationship Specialty Start Date End Date No Ref-Primary, Physician PCP - General 09/30/17 documented as of this encounter
--- OUTSIDE RECORDS SUMMARY | 2022-05-02 12:46 | XMS_ITS | Encounter Summary ---
:1970 Author Organization [place] Address [address] [place] [address] Care Team Providers Name Role Phone No Ref-Primary, Physician Primary Care Provider [phone] Encounter Details Date Type Department Care Team Description 10/25/2018 [facility] Edin Hu, Myelopro liferative Encounter [facility] Laboratory disorder (H) [address] [place] [address] HEMATOLOGY [place], [place] [address] [place] [address] [address] [place], [place] [id number] Social History Tobacco Use Types Packs/Day Years [...] Results Blood component (10/25/2018 11:10 AM CDT) [facility] gist Method Time Signature Unit Number [id number] 10/26/2018 [facility] 8:11 AM [facility] Blood Red Blood 10/26/2018 [facility] Component Cells 8:11 AM [facility] Leukocyte HOSPITAL Reduced Division 00 10/26/2018 [facility] Number 8:11 AM [facility] Status of Released to 10/26/2018 [place] Unit care unit 11:52 PM [facility] Blood Product [id number] 10/26/2018 [facility] Code 8:11 AM [facility] Unit Status ISS [facility] Specimen Anatomical Collection Method Collection Time Receive d Time (Source) Location / / Volume Laterality 10/25/2018 11:10 10/25/2018 AM CDT 11:12 AM CDT Rajani Miles APRN TIRE BUILDER OPERATOR LABORATORY Performing Organization Address City/State/ZIP Code Phon e Number M [facility] [address] [place], [place] [address] [facility] [address] [place], [place] [address] [place] [address] Blood component (10/25/2018 11:10 AM CDT) [facility] Method Time Signature Unit Number [id number] 10/26/2018 [facility] 8:09 AM [facility] Blood Red Blood 10/26/2018 [facility] Component Cells 8:[address] [facility] Reduced Division 00 10/26/2018 [facility] Number 8:09 AM [facility] Status of Released to 10/26/2018 [place] Unit care unit 11:52 PM [facility] Blood Product [id number] 10/26/2018 [facility] Code 8:09 AM [facility] Unit Status ISS [facility] Specimen Anatomical Collection Method Collection Time Receive d Time (Source) Location / / Volume Laterality 10/25/2018 11:10 10/25/2018 AM CDT 11:12 AM CDT Rajani Miles APRN TIRE BUILDER OPERATOR LABORATORY Performing Organization Address City/State/ZIP Code [facility] e Number [place] [address] [place] [phone] [place] [address] [address] [place] [phone] ABO/Rh type and screen (10/25/2018 11:10 AM CDT) [facility] Signature Units Ordered 2 10/26/2018 [place] 8:21 AM [facility] ABO A 10/25/2018 [facility] 11:50 AM [facility] RH(D) Pos [facility] Antibody Neg 10/25/2018 [facility] Screen 11:50 AM [facility] Test Valid [place] 10/25/2018 [facility] Only At [facility] 11:51 AM [facility] HOSPITAL Specimen 10/28/2018 10/25/2018 [place] Expires 11:51 AM [facility] Crossmatch Red Blood 10/26/2018 [place] Cells 8:21 AM [facility] Specimen Anatomical Collection Method Collection Time Receive d Time (Source) Location / / Volume Laterality Blood specimen 10/25/2018 11:10 9 (specimen) AM CDT 11:12 AM CDT Rajani Miles APRN TIRE BUILDER OPERATOR LAB - BLOOD BANK TEST ORDE R Performing Organization Address City/State/ZIP Code Phon e Number M [facility] [address] [place], [place] [address] [facility] [address] [place], [place] [address] [place] [address] documented in this encounter 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
--- OUTSIDE RECORDS SUMMARY | 2022-05-02 12:47 | XMS_ITS | Encounter Summary ---
:1970 Author Organization [place] Address [address] [place] [address]. [place] [address] Care Team Providers Name Role Phone No Ref-Primary, Physician Primary Care Provider [phone] Reason for Visit Auth/Cert Specialty Diagnoses / Procedures Referred By Contact Refer red To Contact Surgery Diagnoses up Rh Periop Services Procedures BIOPSY BONE MARROW [address] [place], [place] [address] Phone: Fax: Referral ID Status Reason Start Date Expiration Date Visits Requ ested Visits Authorized [id number] 1 1 Encounter Details Date Type Department Care Team Description 09/14/2015 Anesthesia Event [facility] Edin Loera MD [facility] ANESTHESIA [address] [place] [address] PeriOp Services Augustin Robles MD [facility] ANESTHESIA [address] [place] [address] [address] [place] [address] Anesthesia Record Procedure Summary Procedure [...] 0628 by 09/14/15 1200 apurva y Latoya Whitheead, RN Incision/Surgical Site 09/14/15; 1019; Left; 09/14/15 [...] Loera MD September 14, 2015 12:59 PM N SERVICES MANAGER Anesthesia Preprocedure Evaluation - Edin Loera MD [...] benefits and alternatives discussed with: patient or senior patient account representative. Routine analgesia and antiemetics History & Physical Review History and physical reviewed and following examination; no interval change. . N SERVICES MANAGER documented in this encounter Miscellaneous Notes Anesthesia [...] APRN CRNA September 14, 2015 10:23 AM N SERVICES MANAGER documented in 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 Administered Medications Inactive Administered Medications - up to 3 most recent administrations Medication Order MAR Action Action Date Dose Rate Site fentaNYL (SUBLIMAZE) injection Given 09/14/2015 9:35 AM HUMAN SERVICES MANAGER 100 mcg PRN, moderate to severe pain, Starting on Aruna 09/14/15 at 0935, Anesthesia Intra-op lactated ringers infusion New Bag 09/14/2015 10:11 AM HUMAN SERVICES MANAGER Intravenous, CONTINUOUS PRN, Anesthesia Intra-op, Starting on Aruna 09/14/15 at 0854, Until Aruna 09/14/15 at 1024 New Bag 09/14/2015 8:54 AM HUMAN SERVICES MANAGER midazolam (VERSED) injection Given 09/14/2015 9:30 AM HUMAN SERVICES MANAGER 2 mg PRN, anxiety, Starting on Aruna 09/14/15 at 0930, Anesthesia Intra-op propofol (DIPRIVAN) injection 10 mg/mL v ial Given 09/14/2015 10:08 AM HUMAN SERVICES MANAGER 20 mg PRN, Starting on Aruna 09/14/15 at 0937, Anesthesia Intra-op Given 09/14/2015 10:05 AM HUMAN SERVICES MANAGER 20 mg Given 09/14/2015 10:03 AM HUMAN SERVICES MANAGER 20 mg documented in this encounter Care Teams Material Requirements Worker Relationship Specialty Start Date End Date No Ref-Primary, Physician PCP - General 09/11/15 12/12/15 documented as of this encounter
--- OUTSIDE RECORDS SUMMARY | 2022-05-02 12:47 | XMS_ITS | Encounter Summary ---
:1970 Author Organization [place] Address [address] [place] [address] Care Team Providers Name Role Phone Clinic, [facility] Primary Care Provider [phone] Reason for Visit Reason Comments Other Encounter Details Date Type Department Care Team Description 12/27/2015 Emergency [facility] Mary Ann Hobson Anemia due to other cause; [facility] Emergency Dep t MD Jennifer Myelofibrosis (H) [address] [facility] [place] [address] 9712 [facility] [phone] [place], [place] [address] (Wo rk) Social History [...] Your doctor can tell you more. ?? [phone] [employer]. [address] [place] [address]. All rights reserved. This information is not [...] 2 times daily 8.6-50 MG per tablet MORPHINE SULFATE PO Take 60 mg by mouth 0 2 times daily (Takes 15 mg extra BID if not working) ondansetron (ZOFRAN ODT) 4 Take 1-2 tablets [...] here tot ED by Dr. Hu from [facility] for a blood transfusion as her [...] and the provider's statements to me. 12/27/2015 [facility] EMERGENCY DEPARTMENT Mary Ann Hobson MD 12/28/15 0621 Lisa Flores RN - 12/27/2015 11:51 AM CDT Patient is referred to the ED for a blood transfusion by Dr. Hu, [facility]. Patient's hemaglobin on 12/13/2015 was 6.7 [...] ON Blood component (12/27/2015 12:23 PM CDT) [facility] [employer] Method Time Signature Unit Number [id number] [facility] Blood Red Blood [place] Component [facility] Reduced Division 00 [facility] Status of Released to [facility] care [facility] Blood Product [id number] [facility] Unit Status [facility] Specimen Anatomical Collection Method Collection Time Receive d Time (Source) Location / / Volume Laterality 12/27/2015 12:23 12/27/2015 PM CDT 12:29 PM CDT Mary Ann Hobson MD LABORATORY Performing Organization Address City/[facility]/ZIP Code Phon e Number M [facility] [address] [place], [place] [address] [facility] [address] [place], [place] [address] [address], [facility] [phone] Blood component (12/27/2015 12:23 PM CDT) [facility] Method Time Signature Unit Number [id number] [facility] Blood Red Blood [facility] Reduced Division 00 [facility] Status of Released to [facility] Blood Product [id number] [facility] Unit Status [facility] Specimen Anatomical Collection Method Collection Time Receive d Time (Source) Location / / Volume Laterality 12/27/2015 12:23 12/27/2015 PM CDT 12:29 PM CDT Mary Ann Hobson MD LABORATORY Performing Organization Address City/[facility]/ZIP Code Phon e Number M [facility] [address] [place], [place] [address] [facility] [address] [place], [place] [address] [address], [facility] [phone] ABO/Rh type and screen (12/27/2015 12:23 PM CDT) Patholo gist Method Time Signature Units Ordered 2 [facility] ABO A [facility] RH(D) Pos [facility] Antibody Neg [place] Screen [facility] Test Valid [facility] Only At [facility] Specimen 12/30/2015 [place] [facility] Crossmatch Red Blood [place] Cells [facility] Specimen Anatomical Collection Method Collection Time Receive d Time (Source) Location / / Volume Laterality Blood specimen 12/27/2015 12:23 6 (specimen) PM CDT 12:29 PM CDT Mary Ann Hobson MD LAB - BLOOD BANK TEST ORDER Performing Organization Address City/[facility] Phon e Number M [facility] [address] [place], [place] [address] [place] [address] [address] [place], [place] [address] [address], [facility] [phone] (ABNORMAL) Hemoglobin (12/27/2015 12:23 PM CDT) P athologist Signature Hemoglobin 7.5 (L) 11.7 - 15.7 [place] g/dL [facility] Specimen Anatomical Collection Method Collection Time Receive d Time (Source) Location / / Volume Laterality Blood specimen 12/27/2015 12:23 6 (specimen) PM CDT 12:29 PM CDT Mary Ann Hobson MD LAB - BLOOD ORDERABLES Performing Organization Address City/[facility] Phon e Number M [facility] [address] [place], [place] [address] [facility] [address] [place], [place] [address] 7, [facility] [phone] documented in this encounter Visit Diagnoses Diagnosis [...] required. documented in this encounter Care Teams Experimental Preflight Mechanic Relationship Specialty Start Date End Date [facility], [facility] PCP - General 12/13/15 09/29/17 [address] [place] [address] documented as of this encounter
--- OUTSIDE RECORDS SUMMARY | 2022-05-02 12:47 | XMS_ITS | Encounter Summary ---
:1970 Author Organization [place] Address [address] [place] [address] Care Team Providers Name Role Phone [facility], [facility] Primary Care Provider [phone] Carolann Macias MD Unavailable Reason for Visit Reason Onset Date Comments Erroneous encounter-disregard 02/12/2016 Outpatient (Routine) - Closed Specialty Diagnoses / Procedures Referred By Contact Refer red To Contact Blood and Marrow Diagnoses new eval consult(MPD/MFIB) Carolann Macias Leary, Eleanor, Transplant Procedures UMP BMT SOCIAL WORK WITH ROOM MD KNIGHT [address] [place] [address] Phone: [address] [place] [address] Referral ID Status Reason Start Date Expiration Date Visits Requ ested Visits Authorized [id number] Closed 01/30/2016 01/29/2017 1 1 Encounter Details Date Type Department Care Team Description 01/30/2016 [facility] Maty Macias MD [address] [facility] [address] [place], [place] [address] [facility] Health/Nurse Blood and Marrow Francesca Rojas LICSW encounter-disregard Visit Transplant Program [address] [address] Social History Tobacco Use Types [...] Primary documented in this encounter Care Teams Rink Rat Relationship Specialty Start Date End Date [facility], [facility] PCP - General 12/13/15 09/29/[id number] [place] [address] Carolann Macias MD [facility] Physician Internal Medicine 01/09/16 09/29/[address] [place] [address] [address] [place] [address] documented as of this encounter
--- OUTSIDE RECORDS SUMMARY | 2022-05-02 12:47 | XMS_ITS | Encounter Summary ---
:1970 Author Organization [place] Address [address] [place] [address]. [place] [address] Care Team Providers Name Role Phone No Ref-Primary, Physician Primary Care Provider [phone] Encounter Details Date Type Department Care Team Description 05/19/2018 Hospital Encounter [facility] Sharp, [facility] Laboratory RN TRANSFER [address] [facility] [place] [address] HEMATOLOGY [phone] [address] [facility] [address] [place] [address] (Wo rk) Social History Tobacco Use Types [...] on filedocumented in this encounter Care Teams Polytechnic Teacher Relationship Specialty Start Date End Date No Ref-Primary, Physician PCP - General 09/30/17 documented as of this encounter
--- OUTSIDE RECORDS SUMMARY | 2022-05-02 12:47 | XMS_ITS | Encounter Summary ---
:1970 Author Organization [place] Address [address] [place] [address] Care Team Providers Name Role Phone No Ref-Primary, Physician Primary Care Provider [phone] Encounter Details Date Type Department Care Team Description 05/18/2018 Orders Only [facility] Cancer AndersIndia burnett, PATIENT CARE SECRETARY [facility]COLOGY HEMATOLOGY [facility] Medical Ctr [place] [address] [place] [address] [facility] [address] [place] [address] [place] [address] [phone] Social History Tobacco Use Types Packs/Day Years [...] on filedocumented in this encounter Care Teams Handle Attacher Relationship Specialty Start Date End Date No Ref-Primary, Physician PCP - General 09/30/17 documented as of this encounter
--- OUTSIDE RECORDS SUMMARY | 2022-05-02 12:47 | XMS_ITS | Encounter Summary ---
:1970 Author Organization [place] Address [address] [place] [address] Care Team Providers Name Role Phone No Ref-Primary, Physician Primary Care Provider [phone] Encounter Details Date Type Department Care Team Description 02/03/2018 [facility] Edin Hu, Myelopro liferative Encounter [facility] Laboratory disorder (H) [address] [place] [address] HEMATOLOGY [place], [place] [address] [address] [address] [place] [address] Social History Tobacco Use Types [...] tablet LORAZEPAM PO Take 0.5 mg by 0 mouth every 6 hours as needed for anxiety MORPHINE SULFATE PO Take 60 mg by mouth 0 2 times daily (Takes 15 mg extra BID if not working) ondansetron (ZOFRAN ODT) 4 Take 1-2 tablets 30 tablet 0 02/04/2018 MG disintegrating tablet (4-8 mg) by mouth every 8 hours as needed for nausea ALLOPURINOL PO Take 300 mg by 0 2018 mouth daily hydroxyurea (HYDREA) 500 Take 500 mg by 0 12/19/2018 MG capsule CHEMO mouth daily documented as of this encounter Plan [...] Results Blood component (02/03/2018 5:41 PM CDT) [facility] gist Method Time Signature Unit Number [id number] 02/04/2018 [facility] 12:47 PM [facility] Blood Red Blood 02/04/2018 [place] Component Cells 12:47 PM [facility] Leukocyte HOSPITAL Reduced Division 00 02/04/2018 [facility] Number 12:47 PM [facility] Status of Released to 02/04/2018 [place] Unit care unit 11:52 PM [facility] Blood Product [id number] 02/04/2018 [facility] Code 12:47 PM [facility] Unit Status ISS [facility] Specimen Anatomical Collection Method Collection Time Receive d Time (Source) Location / / Volume Laterality 02/03/2018 5:41 PM 8 5:42 CDT PM CDT Edin Hu MD LABORATORY Performing Organization Address City/State/ZIP Code Phon e Number M [facility] [address] [place], [place] [address] [facility] [address] [place], [place] [address] [place] [address] Blood component (02/03/2018 5:41 PM CDT) [facility] Method Time Signature Unit Number [id number] 02/03/2018 [facility] 6:52 PM [facility] Blood Red Blood 02/03/2018 [place] Component Cells 6:52 PM [facility] Reduced Division 00 02/03/2018 [facility] Number 6:52 PM [facility] Status of Released to 02/04/2018 [place] Unit care unit 11:52 PM [facility] Blood Product [id number] 02/03/2018 [facility] Code 6:52 PM [facility] Unit Status ISS [facility] Specimen Anatomical Collection Method Collection Time Receive d Time (Source) Location / / Volume Laterality 02/03/2018 5:41 PM 8 5:42 CDT PM CDT Edin Hu MD LABORATORY Performing Organization Address City/[facility]/ZIP [facility] Phon e Number M [place] [address] [address] [phone] [place] [address] [address] [place] [phone] ABO/Rh type and screen (02/03/2018 5:41 PM CDT) [facility] Signature Units Ordered 2 02/06/2018 [facility] 2:26 PM [facility] ABO A 02/03/2018 [facility] 6:51 PM [facility] RH(D) Pos [facility] Antibody Neg 02/03/2018 [facility] Screen 6:51 PM [facility] Test Valid [place] 02/03/2018 [facility] Only At [facility] 6:52 PM [facility] HOSPITAL Specimen 02/06/2018 02/03/2018 [facility] Expires 6:52 PM [facility] Crossmatch Red Blood 02/03/2018 [facility] Cells 6:52 PM [facility] Specimen Anatomical Collection Method Collection Time Receive d Time (Source) Location / / Volume Laterality Blood specimen 02/03/2018 5:41 PM 018 5:42 (specimen) CDT PM CDT Edin Hu MD LAB - BLOOD BANK TEST ORDER Performing Organization Address City/[facility]/ZIP [facility] Phon e Number M [facility] [address] [place], [place] [address] 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
--- OUTSIDE RECORDS SUMMARY | 2022-05-02 12:47 | XMS_ITS | Encounter Summary ---
:1970 Author Organization [place] Address [address] [place] [address] Care Team Providers Name Role Phone [facility] Primary Care Provider [phone] Reason for Visit (Routine) - Closed Specialty Diagnoses / Procedures Referred By Contact Refer red To Contact Radiology / Diagnoses non epic order..sb Hira..NPO 8 hours..checking spleen size Rh Ultrasound cc Radiology. Procedures US ABDOMEN LIMITED [address] [place] [address] Phone: Fax: Referral ID Status Reason Start Date Expiration Date Visits Requ ested Visits Authorized [id number] Closed 12/25/2015 12/24/2016 1 1 Encounter Details Date Type Department Care Team Description 12/27/2015 [facility] Edin Hu, Myelopro liferative Encounter [facility] Specialty MD [facility] () [facility] [place] [facility] Imaging HEMATOLOGY [address] [place] [address] [place] [id number] Social History Tobacco Use Types Packs/Day Years [...] tissues documented in this encounter Care Teams Supervisor Cold Rolling Relationship Specialty Start Date End Date [facility] PCP - General 12/13/15 09/29/17 [address] [place] [address] documented as of this encounter
--- OUTSIDE RECORDS SUMMARY | 2022-05-02 12:47 | XMS_ITS | Encounter Summary ---
:1970 Author Organization [place] Address [address] [place] [address] Care Team Providers Name Role Phone No Ref-Primary, Physician Primary Care Provider [phone] Reason for Visit Auth/Cert Specialty Diagnoses / Procedures Referred By Contact Refer red To Contact Med Surg Diagnoses Low hemoglobin Sh Short Stay [address] [place] [address] Phone: Referral ID Status Reason Start Date Expiration Date Visits Requ ested Visits Authorized 04/16/2018 04/16/2019 Encounter Details Date Type Department Care Team Description 04/16/2018 Hospital Encounter [facility] Renetta Hu MD [facility] ONCOLOGY Recovery and Short S [place] HEMATOLOGY [address] [address] [place] [address] (Wo rk) Social History Tobacco [...] ON Blood component (04/16/2018 1:28 PM CDT) [facility] Method Time Signature Unit Number [id number] 04/16/2018 [place] 2:[address] [facility] Blood Red Blood 04/16/2018 [place] Component Cells 2:21 PM CDT [facility]PITAL Reduced Division 00 04/16/2018 [place] Number 2:[address] [facility] Status of Released to 04/16/2018 [place] Unit care unit 11:[address] [facility] Blood Product [id number] 04/16/2018 [place] Code 2:[address] [facility] Unit Status ISS [facility] Specimen Anatomical Collection Method Collection Time Receive d Time (Source) Location / / Volume Laterality 04/16/2018 1:28 PM 8 1:35 CDT PM CDT Edin Hu MD LABORATORY Performing Organization Address City/State/ZIP Code Phon e Number M [facility] [address] [place] [address] [facility] [address] [place] [address], [place] [phone] Blood component (04/16/2018 1:28 PM CDT) [facility] Method Time Signature Unit Number [id number] 04/16/2018 [place] 2:[address] [facility] Blood Red Blood 04/16/2018 [place] Component Cells 2:21 PM CDT [facility] Reduced Division 00 04/16/2018 [facility] Number 2:[address] [facility] Status of Released to 04/16/2018 [place] Unit care unit 11:[address] [facility] Blood Product [id number] 04/16/2018 [place] Code 2:[address] [facility] Unit Status ISS [facility] Specimen Anatomical Collection Method Collection Time Receive d Time (Source) Location / / Volume Laterality 04/16/2018 1:28 PM 8 1:35 CDT PM CDT Edin Hu MD LABORATORY Performing Organization Address City/State/ZIP Code Phon e Number M [facility] [address] [place] [address] [facility] [address] [place] [address], [place] [phone] ABO/Rh type and screen (04/16/2018 1:28 PM CDT) [facility] Method Time Signature Units Ordered 2 04/16/2018 [place] 1:[address] [facility] ABO A 04/16/2018 [place] 2:[address] [facility] RH(D) Pos [facility] Antibody Neg 04/16/2018 [place] Screen 2:[address] [facility] Test Valid [place] 04/16/2018 [place] Only At [facility] 1:37 PM CDT [facility] Specimen 04/19/2018 04/16/2018 [place] Expires 1:[address] [facility] Crossmatch Red Blood 04/16/2018 [place] Cells 1:[address] [facility] Specimen Anatomical Collection Method Collection Time Receive d Time (Source) Location / / Volume Laterality Blood specimen 04/16/2018 1:28 PM 018 1:35 (specimen) CDT PM CDT Edin Hu MD LAB - BLOOD BANK TEST ORDER Performing Organization Address City/State/ZIP Code Phon e Number M [facility] [address] [place] [address] [facility] [address] [place] [address], [place] [phone] documented in this encounter Visit Diagnoses Not [...] order. documented in this encounter Care Teams Hot Plate Press Operator Relationship Specialty Start Date End Date No Ref-Primary, Physician PCP - General 09/30/17 documented as of this encounter
--- OUTSIDE RECORDS SUMMARY | 2022-05-02 12:47 | XMS_ITS | Encounter Summary ---
:1970 Author Organization [place] Address [address] [place] [address] Care Team Providers Name Role Phone [facility] Primary Care Provider [phone] Carolann Macias MD Unavailable Encounter Details Date Type Department Care Team Description 07/03/2017 [facility] Edin Hu Myelopro liferative Encounter [facility] Laboratory disorder (H) [address] HEMATOLOGY [place], [place] [address] [facility] [address] [address] [place] [address] Social History Tobacco Use Types [...] 6:01 Myeloproliferative Res ults for this PM MEMBERSHIP SALES REPRESENTATIVE disorder (H) procedure are i n the results section. ABO/RH TYPE AND Routine 07/03/2017 6:01 Myeloproliferative Res ults for this SCREEN PM MEMBERSHIP SALES REPRESENTATIVE disorder (H) procedure are i n the results section. documented in this encounter Results Blood component (07/03/2017 6:01 PM MEMBERSHIP SALES REPRESENTATIVE) [facility] Time Signature Unit Number [id number] 07/04/2017 [facility] 8:27 AM [facility] Blood Red Blood 07/04/2017 [facility] Component Cells 8:27 AM [facility] Reduced Division 00 07/04/2017 [facility] Number 8:27 AM [facility] Status of Released to 07/04/2017 [place] Unit care unit 11:52 PM [facility] Blood Product [id number] 07/04/2017 [facility] Code 8:28 AM [facility] Unit Status ISS [facility] Specimen Anatomical Collection Method Collection Time Receive d Time (Source) Location / / Volume Laterality 07/03/2017 6:01 PM 7 6:05 MEMBERSHIP SALES REPRESENTATIVE PM MEMBERSHIP SALES REPRESENTATIVE Edin Hu MD LABORATORY Performing Organization Address City/State/ZIP Code Phon e Number M [facility] [address] [place], [place] [address] [facility] [address] [place], [place] [address] 7[facility] [phone] ABO/Rh type and screen (07/03/2017 6:01 PM MEMBERSHIP SALES REPRESENTATIVE) [facility] Method Time Signature Units Ordered 1 07/05/2017 [facility] 2:06 PM [facility] ABO A 07/03/2017 [place] 7:16 PM [facility] RH(D) Pos [facility] Antibody Neg 07/03/2017 [place] Screen 7:16 PM [facility] Test Valid [place] 07/03/2017 [facility] Only At [facility] 7:18 PM [facility] Specimen 07/06/2017 07/03/2017 [facility] Expires 7:18 PM [facility] Specimen Anatomical Collection Method Collection Time Receive d Time (Source) Location / / Volume Laterality Blood specimen 07/03/2017 6:01 PM 017 6:05 (specimen) MEMBERSHIP SALES REPRESENTATIVE PM MEMBERSHIP SALES REPRESENTATIVE Edin Hu MD LAB - BLOOD BANK TEST ORDER Performing Organization Address City/State/ZIP Code Phon e Number M [place] [address] [place], [place] [address] [facility] [address] [place], [place] [address] [facility] [phone] documented in this encounter 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
--- OUTSIDE RECORDS SUMMARY | 2022-05-02 12:47 | XMS_ITS | Encounter Summary ---
:1970 Author Organization [place] Address [address] [place] [address] Care Team Providers Name Role Phone No Ref-Primary, Physician Primary Care Provider [phone] Reason for Visit Reason Comments Blood Transfusion 2 u nPRBC Encounter Details Date Type Department Care Team Description 02/04/2018 Infusion Therapy [facility] Edin Hu, Melania oproliferative Visit Cancer Center MD disorder (H) (Primary Dx) [facility] ONCOLOGY [facility] HEMATOLOGY [address] [place] [phone] Social History Tobacco Use Types Packs/Day Years [...] PRBC. Patient seen by provider today: No Physician Primary Care Sports Medicine present during visit today: Not Applicable. Note: [...] type and screen (02/03/2018 5:41 PM CDT) [facility] Method Time Signature Units Ordered 2 02/06/2018 [place] 2:26 PM CDT [facility] ABO A 02/03/2018 [place] 6:51 PM CDT [facility] RH(D) Pos [facility] Antibody Neg 02/03/2018 [place] Screen 6:51 PM T [facility] Test Valid [place] 02/03/2018 [facility] Only At [facility] 6:52 PM CDT [facility] Specimen 02/06/2018 02/03/2018 [facility] Expires 6:52 PM [facility] Crossmatch Red Blood 02/03/2018 [place] Cells 6:52 PM [facility] Specimen Anatomical Collection Method Collection Time Receive d Time (Source) Location / / Volume Laterality Blood specimen 02/03/2018 5:41 PM 018 5:42 (specimen) CDT PM CDT Edin Hu MD LAB - BLOOD BANK TEST ORDER Performing Organization Address City/State/ZIP Code Phon e Number M [facility] [address] [place] [address] [facility] [address] [phone] documented in this encounter Visit Diagnoses Diagnosis 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
--- OUTSIDE RECORDS SUMMARY | 2022-05-02 12:47 | XMS_ITS | Encounter Summary ---
:1970 Author Organization [place] Address [address] [place] [address] Care Team Providers Name Role Phone No Ref-Primary, Physician Primary Care Provider [phone] Reason for Visit Reason Comments Blood Transfusion 1 unit PRBC's Encounter Details Date Type Department Care Team Description 10/02/2017 Infusion [facility] [place], Rj Myeloproli ferative Therapy Visit Cancer Center MD Vern disorder (H) (Primary Dx) [facility] OCOLOGY [facility] HEMATOLOGY [place] [facility] [address] [place] [address] [place] [address] Social History Tobacco Use Types Packs/Day [...] PRBC's. Patient seen by provider today: No Loom Tuner present during visit today: Not Applicable. Note: [...] type and screen (09/30/2017 5:51 PM CDT) [facility] Method Time Signature Units Ordered 1 09/30/2017 [place] 6:44 PM [facility] ABO A 09/30/2017 [place] 6:41 PM [facility] RH(D) Pos [facility] Antibody Neg 09/30/2017 [place] Screen 6:41 PM [facility] Test Valid [place] 09/30/2017 [facility] Only At [facility] 6:44 PM [facility] Specimen 10/03/2017 09/30/2017 [facility] Expires 6:44 PM [facility] Crossmatch Red Blood 09/30/2017 [place] Cells 6:44 PM [facility] Specimen Anatomical Collection Method Collection Time Receive d Time (Source) Location / / Volume Laterality Blood specimen 09/30/2017 5:51 PM 018 5:52 (specimen) CDT PM CDT Rj [place] MD LAB - BLOOD BANK TEST ORDER Performing Organization Address City/State/ZIP Code Phon e Number M [place] [address] [place], [place] [address] [facility] [address] [place], [place] [address] [place] [address] documented in this encounter Visit Diagnoses Diagnosis 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
--- OUTSIDE RECORDS SUMMARY | 2022-05-02 12:47 | XMS_ITS | Encounter Summary ---
:1970 Author Organization [place] Address [address] [place] [address] Care Team Providers Name Role Phone [facility], [facility] Primary Care Provider [phone] Reason for Visit Reason Comments Fatigue low hemaglobin Encounter Details Date Type Department Care Team Description 12/13/2015 Emergency [facility] Michelle [place] MD [facility] [address] [place] [address] Symptomatic anemia; RidgeAurelio Acosta MD [facility] [address] [place], [place] [id number] Myelofibrosis (H) Dept Rosie Blanco, MARIA DEL ROSARIO [facility] DERMATOLOGY [address] [place] [address] [address] [place] [address] [address] [place] [phone] Social History Tobacco Use Types Packs/Day Years [...] Blanco PA-C - 12/13/2015 8:20 PM CDT [facility] Outpatient/Observation Unit Discharge Summary Patient ID: Jennifer Dobbs [id number] 45 year old 1970 Admit date: 12/13/2015 [...] upon standing. Please follow up closely with [facility] to discuss your visit to the ED, as it is likely that you may require transfusions in the future with your diagnosis of myelofibrosis. The patient arrived at the ED following a conversation with nursing at [facility] as she was havinglightheadedness and feeling fatigued today. Her hemoglobin has been followed closely at [facility] as she has a diagnosis of [...] [facility]. Energy is up. No history of black tarry stools, blood in stool, bleeding of any kind. She was eager to go home and ticket writer and supervising physician this evening Dr. Dior [...] Antibody Screen Neg Test Valid Only At [facility] Specimen Expires 12/16/2015 Crossmatch Red Blood Cells [...] component Result Value Ref Range Unit Number [id number] Blood Component Type Red Blood Cells Leukocyte Reduced Division Number 00 Status of Unit Released to care unit 12/13/2015 1742 Blood Product Code [id number] Unit Status ISS Blood component Result Value Ref Range Unit Number [id number] Blood Component Type Red Blood Cells Leukocyte Reduced Division Number 00 Status of Unit Ready for patient 12/13/2015 1740 Blood Product Code [id number] Unit Status [facility] EKG 12-lead, tracing only [...] NEG Ketones Urine Negative NEG mg/dL Specific [place] Urine 1.018 1.003 - 1.035 Blood Urine [...] with Dr. Hu and/or nursing staff of [facility] tomorrow regarding whether they want a [...] Blanco PA-C - 12/13/2015 10:42 PM CDT [facility] Outpatient/Observation Unit H&P - Patient discharged same day Patient ID: Jennifer Dobbs [id number] 45 year old 1970 Admit date: 12/13/2015 [...] ED following a conversation with nursing at [facility] as she was havinglightheadedness and feeling fatigued today. Her hemoglobin has been followed closely at [facility] as she has a diagnosis of [...] She was eager to go home and ticket writer and supervising physician this evening Dr. Dior [...] Antibody Screen?? Neg? Test Valid Only At?? [facility]? Specimen Expires?? 12/16/2015? Crossmatch?? Red Blood Cells? [...] component?? Result?? Value?? Ref Range? Unit Number?? [id number]? Blood Component Type?? Red Blood Cells Leukocyte Reduced? Division Number?? 00? Status of Unit?? Released to care unit 12/13/2015 1742? Blood Product Code?? [id number]? Unit Status?? ISS? Blood component?? Result?? Value?? Ref Range? Unit Number?? [id number]? Blood Component Type?? Red Blood Cells Leukocyte Reduced? Division Number?? 00? Status of Unit?? Ready for patient 12/13/2015 1740? Blood Product Code?? [id number]? Unit Status?? LILLIE? EKG 12-lead, tracing only?? [...] NEG? Ketones Urine?? Negative?? NEG mg/dL? Specific [place] Urine?? 1.018?? 1.003 - 1.035? Blood Urine?? [...] with Dr. Hu and/or nursing staff of [facility] tomorrow regarding whether they want a [...] fatigue, low hemoglobin Vent. Rate 94 bpm. CA interval 132 ms. QRS duration 84 ms. [...] place thepatient in observation in the observation structural test engineer area. Impression & Plan Medical Decision Making: [...] Admitted to the hospitalist service 12/13/2015 [facility] EMERGENCY DEPARTMENT Luz Peters, maldonado serving as [...] status for this patient is complete. See [facility] admission navigator for allergy information, prior to admission medications and immunization status. Medication history interview source(s):Patient and Family Medication history resources (including written lists, pill bottles, clinic record):None Medication history source reliability:Good Primary pharmacy:- Changes made to DEPUTY COMMISSIONER medication list: Added: - Deleted: ibuprofen Changed: [...] at Unknown time Yes Michelle [place] MD Electronically signed by Baljeet Grossman [facility] at 12/13/2015 7:33 PM CDT documented in this encounter Plan of Treatment [...] UA with Microscopic (12/13/2015 7:38 PM CDT) [facility] Method Time Signature Color Urine Yellow [facility] Appearance Urine Slightly [place] Cloudy [facility] Glucose Urine Negative NEG mg/dL [facility] Bilirubin Urine Negative NEG [facility] Ketones Urine Negative NEG mg/dL [facility] Specific [place] 1.018 1.003 - [place] Urine 1.035 [facility] Blood Urine Negative NEG [facility] pH Urine 5.5 5.0 - 7.0 [place] pH [facility] Protein Albumin 10 (A) NEG mg/dL [facility] Urobilinogen Normal 0.0 - 2.0 [place] mg/dL mg/dL [facility] Nitrite Urine Negative NEG [facility] Leukocyte Negative NEG [place] Esterase Urine [facility] Source Midstream [facility] WBC Urine 5 (H) 0 - 2 [place] /HPF [facility] RBC Urine 1 0 - 2 [place] /HPF [facility] Squamous 4 (H) 0 - 1 [place] Epithelial /HPF /HPF [facility] Mucous Urine Present (A) NEG /LPF [facility] Specimen Anatomical Collection Method Collection Time Receive d Time (Source) Location / / Volume Laterality Urine specimen MID-STREAM URINE 12/13/2015 7:38 PM 07/2015 7:52 (specimen) SPECIMEN / Unknown CDT PM CDT Aurelio Stokes MD LAB - URINE ORDERABLES Performing Organization Address City/State/ZIP Code Phon e Number M [facility] [address] [place], [place] [address] [facility] [address] [place], [place] [address] [facility] [phone] Transfuse red blood cell unit (12/13/2015 7:34 [...] 12-lead, tracing only (12/13/2015 4:54 PM CDT) [facility] Method Time Signature Interpretation ECG Click View RADIOLOGY Image link RESULTS to view waveform and result Specimen (Source) Anatomical Collection Method Collection Time Re ceived Time Location / / Volume Laterality 12/13/2015 4:54 PM CDT Aurelio Stokes MD ECG ORDERABLES Performing Organization Address City/State/ZIP Code Phon e Number RADIOLOGY RESULTS Blood component (12/13/2015 4:30 PM CDT) [facility] Method Time Signature Unit Number [id number] [facility] Blood Red Blood [facility] Component Cells [facility] HOSPITAL Reduced Division 00 [facility] Status of No longer [facility] Unit available [facility] 12/17/2015 HOSPITAL [id number] [facility] Unit Status RET [facility] Specimen Anatomical Collection Method Collection Time Receive d Time (Source) Location / / Volume Laterality 12/13/2015 4:30 PM 6 4:42 CDT PM CDT Aurelio Stokes MD LABORATORY Performing Organization Address City/[facility]/ZIP Code Phon e Number M [facility] [address] [place], [place] [address] [facility] [address] [place], [place] [address] 7, [facility] [phone] Blood component (12/13/2015 4:30 PM CDT) Patholo gist Method Time Signature Unit Number [id number] [facility] Blood Red Blood [place] Component Cells [facility] HOSPITAL Reduced Division 00 [facility] Status of Released to [place] Unit care unit [facility] Blood Product [id number] [facility] Unit Status ISS [facility] Specimen Anatomical Collection Method Collection Time Receive d Time (Source) Location / / Volume Laterality 12/13/2015 4:30 PM 6 4:42 CDT PM CDT Aurelio Stokes MD LABORATORY Performing Organization Address City/[facility] Phon e Number M [facility] [address] [place], [place] [address] [facility] [address] [place], [place] [address] [facility] [phone] (ABNORMAL) Comprehensive metabolic panel (12/13/2015 4:30 PM CDT) P athologist Signature Sodium 141 133 - 144 [place] mmol/L [facility] Potassium 3.9 3.4 - 5.3 [place] mmol/L [facility] Chloride 108 94 - 109 [place] mmol/L [facility] Carbon Dioxide 27 20 - 32 [place] mmol/L [facility] Anion Gap 6 3 - 14 [place] mmol/L [facility] Glucose 151 (H) 70 - 99 [place] mg/dL [facility] Urea Nitrogen 9 7 - 30 [place] mg/dL [facility] Creatinine 0.71 0.52 - [place] 1.04 mg/dL [facility] GFR Estimate 88 >60 [place] mL/min/1.7 [facility] m2 [facility] Comment: Non GFR Calc GFR Estimate If Black >90 >60 mL/min/1.7m2 F [facility] GFR Calc HOSP ITAL Calcium 8.4 (L) 8.5 - 10.1 mg/dL [facility] Bilirubin Total 1.0 0.2 - 1.3 mg/dL [facility] Albumin 3.8 3.4 - 5.0 g/dL [facility] Protein Total 6.8 6.8 - 8.8 g/dL [facility] Alkaline Phosphatase 49 40 - 150 U/L [facility] ALT 27 0 - 50 U/L [facility] AST 26 0 - 45 U/L [facility] Specimen Anatomical Collection Method Collection Time Receive d Time (Source) Location / / Volume Laterality Blood specimen 12/13/2015 4:30 PM 016 4:43 (specimen) CDT PM CDT Aurelio Stokes MD LAB - BLOOD ORDERABLES Performing Organization Address City/[facility]/ZIP [facility] Phon e Number M [facility] [address] [place], [place] [address] [place] [address] [place], [place] [address], [facility] [phone] ABO/Rh type and screen (12/13/2015 4:30 PM CDT) [facility] Method Time Signature Units Ordered 2 [facility] ABO A [facility] RH(D) Pos [facility] Antibody Neg [facility] Test Valid [facility] Only At [facility] HOSPITAL Specimen 12/16/[address] [facility] Crossmatch Red Blood [facility] Specimen Anatomical Collection Method Collection Time Receive d Time (Source) Location / / Volume Laterality Blood specimen 12/13/2015 4:30 PM 016 4:42 (specimen) CDT PM CDT Aurelio Stokes MD LAB - BLOOD BANK TEST ORDER Performing Organization Address City/[facility] Phon e Number M [facility] [address] [place], [place] [address] [facility] [address] [place], [place] [address] [facility] [phone] (ABNORMAL) CBC with platelets differential (12/13/2015 4:30 PM CDT) P athologist Signature WBC 4.0 4.0 - 11.0 [place] 10e9/L [facility] RBC Count 2.38 (L) 3.8 - 5.2 [place] 10e12/L [facility] Hemoglobin 6.7 (LL) 11.7 - 15.7 [place] g/dL [facility] Comment: This result has been called to TOMASZ CA(ERB) by Jimenez Walker on 12 13 2015 at 1654, and has been read back. Hematocrit 21.1 (L) 35.0 - 47.0 % [facility] MCV 89 78 - [address] [facility] MCH 28.2 26.5 - 33.[address] [facility] MCHC 31.8 31.5 - 36.5 g/dL [facility] RDW 20.1 (H) 10.0 - 15.0 % [facility] Platelet Count 137 (L) 150 - 450 10e9/L [facility] Diff Method Manual Differential [facility] % Neutrophils 77.0 % [facility] % Lymphocytes 9.0 % [facility] % Monocytes 1.0 % [facility] % Eosinophils 1.0 % [facility] % Basophils 4.0 % [facility] % Metamyelocytes 8.0 % [facility] Nucleated RBCs 1 (H) 0 /100 [facility] Absolute Neutrophil 3.1 1.6 - 8.3 10e9/L [facility] Absolute Lymphocytes 0.4 (L) 0.8 - 5.3 10e9/L [facility] Absolute Monocytes 0.0 0.0 - 1.3 10e9/L [facility] Absolute Eosinophils 0.0 0.0 - 0.7 10e9/L [facility] Absolute Basophils 0.2 0.0 - 0.2 10e9/L [facility] Absolute Metamyelocytes 0.3 (H) 0 10e9/L [facility] Absolute Nucleated RBC 0.0 [facility] Anisocytosis Moderate [facility] Poikilocytosis Moderate [facility] Teardrop Cells Slight [facility] Microcytes Present [facility] Platelet Estimate Decreased [facility] Specimen Anatomical Collection Method Collection Time Receive d Time (Source) Location / / Volume Laterality Blood specimen 12/13/2015 4:30 PM 016 4:43 (specimen) CDT PM CDT Aurelio Stokes MD LAB - BLOOD ORDERABLES Performing Organization Address City/State/ZIP Code Phon e Number [place] [address] [place], [place] [address] [facility] [address] [place], [place] [address] [place] [address] documented in this encounter Visit Diagnoses Diagnosis [...] dose documented in this encounter Care Teams Shirt Finisher Relationship Specialty Start Date End Date Clinic, [facility] PCP - General 12/13/15 09/29/17 [address] [place] [address] documented as of this encounter
--- OUTSIDE RECORDS SUMMARY | 2022-05-02 12:47 | XMS_ITS | Encounter Summary ---
:1970 Author Organization [place] Address [address] [place] [address] Care Team Providers Name Role Phone [facility], [facility] Primary Care Provider [phone] Carolann Macias MD Unavailable Reason for Visit Reason Comments Blood Transfusion Encounter Details Date Type Department Care Team Description 07/04/2017 Infusion Therapy [facility] Edin Hu, Myel oproliferative Visit Cancer Center MD disorder (H) (Primary Dx) [facility] ONCOLOGY [facility] Medical Ctr HEMATOLOGY [id number] [place] [address] [address] [place] [phone] Social History Tobacco Use Types Packs/Day Years [...] Comments Blood Pressure 135/75 07/04/2017 9:55 AM [facility] Pulse 78 07/04/2017 9:55 AM [facility] Temperature 36.5 ??C (97.7 ??F) 07/04/2017 9:55 AM [facility] Respiratory Rate 18 07/04/2017 9:55 AM [facility] Oxygen Saturation 97% 07/04/2017 8:24 AM [facility] Inhaled Oxygen Concentration - - Weight - - Height - - Body Mass Index - - documented in this encounter Progress Notes Yissel Nguyen RN - 07/04/2017 8:00 AM CST Infusion Nursing Note: Jennifer Dobbs presents today for 1 unit RBCs. Patient seen by provider today: No Stoner Hand present during visit today: Not Applicable. [...] sister. Departure Mode: Ambulatory. Yissel Nguyen RN L FISHER[facility] documented in this encounter Plan of Treatment Not on filedocumented as of this encounter Procedures Procedure Name Priority Date/Time Associated Diagnosis Comme nts TRANSFUSE RED BLOOD Routine 07/04/2017 8:34 AM Myeloproliferat otoniel disorder CELL UNIT [facility] (H) documented in this encounter Results Transfuse red blood cell unit (07/04/2017 10:29 AM [facility]) Edin Hu MD IP NURSING BLOOD ADMINISTRAT ON Transfuse red blood cell unit (07/04/2017 10:29 AM [facility]) Edin Hu MD IP NURSING BLOOD ADMINISTRAT ON ABO/Rh type and screen (07/03/2017 6:01 PM [facility]) [facility] Method Time Signature Units Ordered 1 07/05/2017 [facility] 2:06 PM [facility] ABO A 07/03/2017 [facility] 7:16 PM [facility] RH(D) Pos [facility] Antibody Neg 07/03/2017 [facility] Screen 7:16 PM [facility] Test Valid [place] 07/03/2017 [facility] Only At [facility] 7:18 PM [facility] Specimen 07/06/2017 07/03/2017 [facility] Expires 7:18 PM [facility] Specimen Anatomical Collection Method Collection Time Receive d Time (Source) Location / / Volume Laterality Blood specimen 07/03/2017 6:01 PM 017 6:05 (specimen) [facility] PM [facility] Edin Hu MD LAB - BLOOD BANK TEST ORDER Performing Organization Address City/State/ZIP Code Phon e Number M [facility] [address] [place], [place] [address] [facility] [address] [place], [place] [address] [facility] [phone] documented in this encounter Visit Diagnoses Diagnosis 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
--- OUTSIDE RECORDS SUMMARY | 2022-05-02 12:47 | XMS_ITS | Encounter Summary ---
:1970 Author Organization [place] Address [address] [facility] [place] [address] Care Team Providers Name Role Phone [place], [facility] Primary Care Provider [phone] Carolann Macias MD Unavailable Encounter Details Date Type Department Care Team Description 02/10/2017 Orders Only [facility] Cancer Khushbu Antony MD [facility] ONCOLOGY HEMATOLOGY [facility] Medical Ctr [place] [address] [place] [address] [address] [facility] [address] [place] [address] [phone] Social History Tobacco Use Types Packs/Day Years [...] on filedocumented in this encounter Care Teams Locomotive Operator Helper Relationship Specialty Start Date End Date [facility] PCP - General 12/13/15 09/29/[address] [place] [id number] [place] [address] Carolann Macias MD [facility] Physician Internal Medicine 01/09/16 09/29/[address] [place] [address] [place] [id number] documented as of this encounter
--- OUTSIDE RECORDS SUMMARY | 2022-05-02 12:47 | XMS_ITS | Encounter Summary ---
:1970 Author Organization [place] Address [address] [place] [address] Care Team Providers Name Role Phone No Ref-Primary, Physician Primary Care Provider [phone] Encounter Details Date Type Department Care Team Description 09/30/2017 [facility] Edin Hu, Myelopro liferative Encounter [facility] Laboratory disorder (H) [address] HEMATOLOGY [place], [place] [address] [place] [address] [address] [place] [address] Social History Tobacco Use Types [...] Results Blood component (09/30/2017 5:51 PM CDT) [facility] Method Time Signature Unit Number [id number] 09/30/[facility] PM [facility] Blood Red Blood 09/30/2017 [facility] Component Cells 6:44 PM T [facility] [address] Leukocyte [facility] Reduced Division 00 09/30/2017 [facility] Number 6:44 PM [facility] Status of Released to 10/02/2017 [place] Unit care unit 11:52 PM [facility] Blood Product [id number] 09/30/2017 [facility] Code 6:44 PM [facility] Unit Status ISS [facility] Specimen Anatomical Collection Method Collection Time Receive d Time (Source) Location / / Volume Laterality 09/30/2017 5:51 PM 8 5:52 CDT PM CDT Rj Longoria MD LABORATORY Performing Organization Address City/State/ZIP Code Phon e Number M [facility] [address] [place], [place] [address] [phone] [facility] [address] [phone] ABO/Rh type and screen (09/30/2017 5:51 PM CDT) [facility] Method Time Signature Units Ordered 1 09/30/2017 [facility] 6:44 PM [facility] ABO A 09/30/2017 [facility] 6:41 PM CDT [facility] RH(D) Pos [facility] Antibody Neg 09/30/2017 [facility] Screen 6:41 PM [facility] Test Valid [place] 09/30/2017 [facility] Only At [facility] 6:44 PM [facility] Specimen 10/03/2017 09/30/2017 [facility] Expires 6:44 PM [facility] Crossmatch Red Blood 09/30/2017 [facility] Cells 6:44 PM [facility] Specimen Anatomical Collection Method Collection Time Receive d Time (Source) Location / / Volume Laterality Blood specimen 09/30/2017 5:51 PM 018 5:52 (specimen) CDT PM CDT Rj Longoria MD LAB - BLOOD BANK TEST ORDER Performing Organization Address City/State/ZIP Code Phon e Number M [facility] [address] [place] [address] [facility] [address] [phone] documented in this encounter 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
--- OUTSIDE RECORDS SUMMARY | 2022-05-02 12:47 | XMS_ITS | Encounter Summary ---
:1970 Author Organization [place] Address [address] [place] [address]. [place] [address] Care Team Providers Name Role Phone No Ref-Primary, Physician Primary Care Provider [phone] Encounter Details Date Type Department Care Team Description 09/14/2015 Telephone [facility] [employer] Tiffanie Mueller, RN [address] [place] [address] Social History Tobacco Use Types Packs/Day [...] prescribed. Is going to go to the [facility] ER. Triage Note: Guideline Title: Medication Questions [...] order. ? NO Physician Instructions: Care Advice: PINNER documented in this encounter Plan of Treatment Not on filedocumented as of this encounter Visit Diagnoses Not on filedocumented in this encounter Care Teams Catering Assistant Relationship Specialty Start Date End Date No Ref-Primary, Physician PCP - General 09/11/15 12/12/15 documented as of this encounter
--- OUTSIDE RECORDS SUMMARY | 2022-05-02 12:47 | XMS_ITS | Encounter Summary ---
:1970 Author Organization [place] Address [address] [place] [address] Care Team Providers Name Role Phone No Ref-Primary, Physician Primary Care Provider [phone] Encounter Details Date Type Department Care Team Description 03/13/2018 - Hospital Encounter [facility] Renetta Hu MD 03/14/2018 [facility] ONCOLOGY [facility] HEMATOLOGY Stay [address] [place] [address] [place] [address] [phone] Social History Tobacco Use Types Packs/Day Years [...] 03/13/2018 4:30 PM CDT Return call to [place] [facility] for blood transfusion orders and For meds. Orders faxed to station Provider Notification - Lanette Aquino RN - 03/13/2018 3:30 PM CDT Notification Notified Person: MD Dr. Hu Notified Person Name:Dr. Hu Notification Date/Time:03/13/18 9330 Notification Interaction:telephone Purpose of Notification: to get [...] ON Blood component (03/13/2018 5:44 PM CDT) [facility] Method Time Signature Unit Number [id number] 03/13/2018 [facility] 10:51 PM CDT [facility] Blood Red Blood 03/13/2018 [place] Component Cells 10:51 PM CDT [facility] Reduced Division 00 03/13/2018 [facility] Number 10:51 PM CDT [facility] Status of Released to 03/13/2018 [facility] Unit care unit 11:55 PM CDT [facility] Blood Product [id number] 03/13/2018 [facility] Code 10:51 PM CDT [facility] Unit Status ISS [facility] Specimen Anatomical Collection Method Collection Time Receive d Time (Source) Location / / Volume Laterality 03/13/2018 5:44 PM 8 5:52 CDT PM CDT Edin Hu MD LABORATORY Performing Organization Address City/State/ZIP Code Phon e Number M [facility] [address] [address] [facility] [address] [address], [place] [phone] Blood component (03/13/2018 5:44 PM CDT) [facility] Method Time Signature Unit Number [id number] 03/13/2018 [facility] 6:39 PM CDT [facility] Blood Red Blood 03/13/2018 [place] Component Cells 6:39 PM CDT [facility] Reduced Division 00 03/13/2018 [facility] Number 6:39 PM CDT [facility] Status of Released to 03/13/2018 [facility] Unit care [facility] 11:55 PM CDT [facility] Blood Product [id number] 03/13/2018 [place] Code 6:39 PM CDT [facility] Unit Status ISS [facility] Specimen Anatomical Collection Method Collection Time Receive d Time (Source) Location / / Volume Laterality 03/13/2018 5:44 PM 8 5:52 CDT PM CDT Edin Hu MD LABORATORY Performing Organization Address City/State/ZIP Code Phon e Number M [facility] [address] [phone] [facility] [address] [place] [address], [place] [phone] ABO/Rh type and screen (03/13/2018 5:44 PM CDT) [facility] [employer] [facility] Method Time Signature Units Ordered 2 03/13/2018 [place] 10:51 PM CDT [facility] ABO A 03/13/2018 [place] 6:38 PM CDT [facility] RH(D) Pos [facility] Antibody Neg 03/13/2018 [place] Screen 6:38 PM T [facility] Test Valid [place] 03/13/2018 [place] Only At [facility] 6:25 PM CDT [facility] HOSPITAL Specimen 03/16/2018 03/13/2018 [place] Expires 6:25 PM CDT [facility] Crossmatch Red Blood 03/13/2018 [place] Cells 6:25 PM CDT [facility] Specimen Anatomical Collection Method Collection Time Receive d Time (Source) Location / / Volume Laterality Blood specimen 03/13/2018 5:44 PM 018 5:52 (specimen) CDT PM CDT Edin Hu MD LAB - BLOOD BANK TEST ORDER Performing Organization Address City/State/ZIP Code Phon e Number M [facility] [address] [phone] [facility] [address] [address], [place] [phone] documented in this encounter Visit Diagnoses Not [...] response. documented in this encounter Care Teams Veterinary Medical Officer Relationship Specialty Start Date End Date No Ref-Primary, Physician PCP - General 09/30/17 documented as of this encounter
--- OUTSIDE RECORDS SUMMARY | 2022-05-02 12:47 | XMS_ITS | Encounter Summary ---
:1970 Author Organization [place] Address [address] [place] [address] Care Team Providers Name Role Phone No Ref-Primary, Physician Primary Care Provider [phone] Reason for Visit Reason Comments Blood Transfusion 1 unit prbc Encounter Details Date Type Department Care Team Description 12/24/2017 Infusion Therapy [facility] DieGuru olson, Myelo proliferative Visit Cancer Center MD disorder (H) (Primary Dx) [facility] ONCOLOGY [facility] Medical Ctr HEMATOLOGY [facility] [address] [address] [place] [address] [place] [address] [phone] Social History Tobacco Use Types Packs/Day Years [...] PRBC. Patient seen by provider today: No Mobile Application Architect present during visit today: Not Applicable. [...] type and screen (12/23/2017 5:51 PM CDT) [facility] Method Time Signature Units Ordered 1 12/24/2017 [place] 7:32 AM [facility] ABO A 12/23/2017 [facility] 6:36 PM [facility] RH(D) Pos [facility] Antibody Neg 12/23/2017 [place] Screen 6:36 PM [facility] Test Valid [place] 12/23/2017 [facility] Only At [facility] 6:37 PM [facility] Specimen 12/26/2017 12/23/2017 [facility] Expires 6:37 PM [facility] Crossmatch Red Blood 12/24/2017 [place] Cells 7:32 AM [facility] Specimen Anatomical Collection Method Collection Time Receive d Time (Source) Location / / Volume Laterality Blood specimen 12/23/2017 5:51 PM 018 5:52 (specimen) CDT PM CDT Guru Antony MD LAB - BLOOD BANK TEST ORDER Performing Organization Address City/State/ZIP Code Phon e Number M [facility] [address] [place], [place] [address] [facility] [address] [place], [place] [address] [facility] [phone] documented in this encounter Visit Diagnoses Diagnosis 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
--- OUTSIDE RECORDS SUMMARY | 2022-05-02 12:47 | XMS_ITS | Encounter Summary ---
:1970 Author Organization [place] Address [address] [place] [address] Care Team Providers Name Role Phone No Ref-Primary, Physician Primary Care Provider [phone] Encounter Details Date Type Department Care Team Description 12/23/2017 [facility] Edin Hu, Myelopro liferative Encounter [facility] Laboratory disorder (H) [address] HEMATOLOGY [place], [place] [address] [address] [address] [place] [address] Social History Tobacco Use Types [...] 0 12/19/2018 MG capsule CHEMO mouth daily Ruxolitinib Phosphate Take by mouth 2 0 [...] Results Blood component (12/23/2017 5:51 PM CDT) [facility] gist Method Time Signature Unit Number [id number] 12/24/2017 [facility] 7:32 AM [facility] Blood Red Blood 12/24/2017 [place] Component Cells 7:32 AM [facility] Leukocyte HOSPITAL Reduced Division 00 12/24/2017 [facility] Number 7:32 AM [facility] Status of Released to 12/24/2017 [place] Unit care unit 11:52 PM [facility] Blood Product [id number] 12/24/2017 [facility] Code 7:32 AM [facility] Unit Status ISS [facility] Specimen Anatomical Collection Method Collection Time Receive d Time (Source) Location / / Volume Laterality 12/23/2017 5:51 PM 8 5:52 CDT PM CDT Guru Antony MD LABORATORY Performing Organization Address City/State/ZIP Code Phon e Number M [facility] [address] [place], [place] [address] [facility] [address] [place], [place] [address] [facility] [phone] ABO/Rh type and screen (12/23/2017 5:51 PM CDT) Patholo gist Method Time Signature Units Ordered 1 12/24/2017 [place] 7:32 AM [facility] ABO A 12/23/2017 [place] 6:36 PM [facility] RH(D) Pos [facility] Antibody Neg 12/23/2017 [place] Screen 6:36 PM [facility] Test Valid [place] 12/23/2017 [place] Only At [facility] 6:37 PM [facility]OSPITAL Specimen 12/26/2017 12/23/2017 [place] Expires 6:37 PM [facility] Crossmatch Red Blood 12/24/2017 [place] Cells 7:32 AM [facility] Specimen Anatomical Collection Method Collection Time Receive d Time (Source) Location / / Volume Laterality Blood specimen 12/23/2017 5:51 PM 018 5:52 (specimen) CDT PM CDT Guru Antony MD LAB - BLOOD BANK TEST ORDER Performing Organization Address City/State/ZIP Code Phon e Number M [facility] [address] [place] [address] [facility] [address] [phone] documented in this encounter 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
[2022-05-02 12:48] LABS: Lactate* 0.9 mmol/L (0.5-1.9)
--- OUTSIDE RECORDS SUMMARY | 2022-05-02 12:48 | XMS_ITS | Encounter Summary ---
:1970 Author Organization [employer] Address [address] [place] [address] Care Team Providers Name Role Phone No Ref-Primary, Physician Primary Care Provider [phone] Reason for Visit Reason Comments Flank Pain Encounter Details Date Type Department Care Team Description 08/28/2015 Emergency [employer] Michelle Washington MD Flank pain; [facility] Emergency Dep t [facility]ERG[facility] Abdominal pain, left lateral ; [address] [place] Splenomegaly; [place], [place] [address] Anemia, unspecified anemia type; [id number] [place] [address] White blood cell abnormality [phone] (Wo rk) Social History Tobacco Use Types Packs/Day Years Used Date Smoking Tobacco: Former Alcohol Use Standard Drinks/Week Comments Yes 0 (1 standard drink = 0.6 oz pure alcoho l) social Sex Assigned at Date Recorded Not on file documented as of this encounter Last Filed Vital Signs Vital Sign Reading Time Taken Comments Blood Pressure 137/86 08/28/2015 2:40 PM AUGER SUPERVISOR Pulse 85 08/28/2015 10:06 AM AUGER SUPERVISOR Temperature 36.8 ??C (98.2 ??F) 08/28/2015 10:06 AM AUGER SUPERVISOR Respiratory Rate 18 08/28/2015 10:06 AM AUGER SUPERVISOR Oxygen Saturation 98% 08/28/2015 2:40 PM AUGER SUPERVISOR Inhaled Oxygen Concentration - - Weight 126.1 kg (278 lb) 08/28/2015 10:06 AM AUGER SUPERVISOR Height 170.2 cm (5' 7) 08/28/2015 10:06 AM AUGER SUPERVISOR Body Mass Index 43.54 08/28/2015 10:06 AM AUGER SUPERVISOR documented in this encounter Discharge Instructions Discharge [...] specialized labs are in process and the boring and filling machine operator can follow-up on these. *Return to the [...] directed by your doctor today. Before using [id number] medications, ask your doctor and make sure [...] contain Tylenol?? (acetaminophen), including Vicodin??, Tylenol #3??, [place]??, Lortab??, and Percocet??. You should not take [...] if there is anything that worries you. R SUPERVISOR documented in this encounter Medications at Time [...] to have a bonemarrow biopsy followup with boring and filling machine operator/oncologist in the clinic for further evaluation and [...] and the provider's statements to me. 08/28/2015 [facility] EMERGENCY DEPARTMENT Michelle Washington MD 08/29/15 1002 R SUPERVISOR Monica Chiu RN - 08/28/2015 10:05 AM CST Pt c/o severe left flank pain for a week. Pt c/o feeling bloated, took a laxative on and had some mild relief of pain after the BM but now the pain is back. Normal BM today. C/o slight nausea when the pain gets severe. Denies dysuria. R SUPERVISOR documented in this encounter Plan of Treatment Not on filedocumented as of this encounter Procedures Procedure Name Priority Date/Time Associated Comments Diagnosis BCR ABL1 MAJOR Routine 08/28/2015 1:37 PM Results for this BREAKPOINT QUANT P210 AUGER SUPERVISOR proced ure are in the results section. LACTATE DEHYDROGENASE STAT 08/28/2015 1:10 PM Flank pain Results for this AUGER SUPERVISOR procedure are i n the results section. ROUTINE UA WITH STAT 08/28/2015 12:23 Flank pain Results for this MICROSCOPIC PM AUGER SUPERVISOR procedure are i n the results section. BCR ABL1 MINOR Routine 08/28/2015 12:12 Results f or this BREAKPOINT QUANT P190 PM AUGER SUPERVISOR proced ure are in the results section. NEXT GENERATION Routine 08/28/2015 12:11 Results for this SEQUENCING ONCOLOGY PM AUGER SUPERVISOR procedur e are in the results section. CT ABDOMEN PELVIS W/O STAT 08/28/2015 11:33 Re sults for this CONTRAST AM AUGER SUPERVISOR procedure are i n the results section. CBC WITH PLATELETS & STAT 08/28/2015 10:33 Flank pain Res ults for this DIFFERENTIAL AM AUGER SUPERVISOR procedure are i n the results section. RETICULOCYTE COUNT Routine 08/28/2015 10:33 Flank pain Resul ts for this AM AUGER SUPERVISOR procedure are i n the results section. BLOOD MORPHOLOGY Routine 08/28/2015 10:33 Results for this PATHOLOGIST REVIEW AM AUGER SUPERVISOR procedure are in the results section. BASIC METABOLIC PANEL STAT 08/28/2015 10:33 Re sults for this AM AUGER SUPERVISOR procedure are i n the results section. documented in this encounter Results BCR ABL1 major breakpoint quant CML (08/28/2015 1:37 PM AUGER SUPERVISOR) Component Value Ref Test Analysis Performed At [facility] gist Range Method Time Signature Copath Report Patient Name: JENNIFER MENDEZ MR#: [id number] Specimen #: [id number] Collected: 08/28/2015 13:37 Received: 08/29/2015 12:38 Reported: 09/01/2015 15:06 Ordering Phy(s): MICHELLE C CHO TEST(S) REQUESTED: BCR-ABL,CMLQuantitative Major SPECIMEN DESCRIPTION: blood CLINICAL COMMENTS: Anemia, splenomegaly abnormal diff METHODOLOGY: Total cellular RNA was extracted from above spe cimen and reverse transcribed to cDNA via random hexamer priming. The cDNA was amplified by a real time quantitative PCR assay (using an [employer] 7900HT Real-time analyzer) with an ABL1 specific [...] 2003; 17:2318, Int J Oncol 2006;2 8:1099, [id number];108:28 Please note, comparisons of bone marrow and blood samples ma y not be clinically appropriate. This test was developed and its performance characteristics determined by the [facility], [facility]. It has not been cleared or approved by the FDA. The laboratory is regulated under CLIA as qualified to perform high-complexity testing. This test is used for clinical purp oses. It should not be regarded as investigational or for research. Electronically Signed Out By: Dajuan Jarvis MD, PhD ??[facility] CPT Codes: A: I7924-FYDFZM, 26043-NTOOHOFL TESTING LAB LOCATION: [address] [place] [id number] COLLECTION SITE: Client: ??[facility] Location: ??RHERB (R) Specimen Anatomical Collection Method Collection Time Receive d Time (Source) Location / / Volume Laterality Blood specimen 08/28/2015 1:37 PM 016 (specimen) AUGER SUPERVISOR 12:38 PM AUGER SUPERVISOR Michelle Washington MD LAB - GENOMICS Performing Organization Address [facility] Phon e Number COPATH (ABNORMAL) Lactate Dehydrogenase (08/28/2015 1:10 PM AUGER SUPERVISOR) [facility] Signature Lactate 579 (H) 81 - 234 [place] Dehydrogenase U/L [facility] Specimen Anatomical Collection Method Collection Time Receive d Time (Source) Location / / Volume Laterality Blood specimen 08/28/2015 1:10 PM 016 1:36 (specimen) AUGER SUPERVISOR PM AUGER SUPERVISOR Michelle Washington MD LAB - BLOOD ORDERABLES Performing Organization Address [facility] Phon e Number [place] [address] [place] [address] [facility] [address] [phone] (ABNORMAL) UA with Microscopic (08/28/2015 12:23 PM AUGER SUPERVISOR) [facility] Method Time Signature Color Urine Yellow [facility] Appearance Urine Slightly [place] Cloudy [facility] Glucose Urine Negative NEG mg/dL [facility] Bilirubin Urine Negative NEG [facility] Ketones Urine Negative NEG mg/dL [facility] Specific Wallace 1.017 1.003 - [place] Urine 1.035 [facility] Blood Urine Negative NEG [facility] pH Urine 5.0 5.0 - 7.0 [place] pH [facility] Protein Albumin 10 (A) NEG mg/dL [facility] Urobilinogen Normal 0.0 - 2.0 [place] mg/dL mg/dL [facility] Nitrite Urine Negative NEG [facility] Leukocyte Trace (A) NEG [place] Esterase Urine [facility] Source Midstream [place] Urine [facility] WBC Urine <1 0 - 2 [facility] RBC Urine <1 0 - 2 [facility] Squamous <1 0 - 1 [place] Epithelial /HPF /HPF [facility] Mucous Urine Present (A) NEG /LPF [facility] Uric Acid Few (A) NEG /HPF [place] Crystals [facility] Specimen Anatomical Collection Method Collection Time Receive d Time (Source) Location / / Volume Laterality Urine specimen URINE SPECIMEN 08/28/2015 12:23 016 (specimen) OBTAINED BY CLEAN PM AUGER SUPERVISOR 12:[address] CATCH PROCEDURE / Unknown Michelle Washington MD LAB - URINE ORDERABLES Performing Organization Address City/State/ZIP Code Phon e Number [place] [address] [place] [address] [place] [phone] BCR ABL1 Minor Breakpoint Quant ALL (08/28/2015 12:12 PM AUGER SUPERVISOR) Component Value Ref Test Analysis Performed At [facility] Range Method Time Signature Copath Report Patient Name: JENNIFER MENDEZ MR#: [id number] Specimen #: [id number] Collected: 08/28/2015 12:12 Received: 08/29/2015 12:42 Reported: 08/31/2015 14:55 Ordering Phy(s): MICHELLE WASHINGTON TEST(S) REQUESTED: BCR-ABL1 Minor Quantitative p190 SPECIMEN DESCRIPTION: blood METHODOLOGY: Total cellular RNA was extracted from above spe cimen and reverse transcribed to cDNA via random hexamer priming. The cDNA was amplified by a real time quantitative PCR assay (using an [employer] 7900HT Real-time analyzer) with an ABL1 specific [...] and its performance characteristics determined by the [facility], [facility]. It has not been cleared or approved by the FDA. The laboratory is regulated under CLIA as qualified to perform high-complexity testing. This test is used for clinical purp oses. It should not be regarded as investigational or for research. Electronically Signed Out By: Dajuan Jarvis MD, PhD ??[facility] CPT Codes: A: 35100-PZXHLBC, X7701-WBISRB TESTING LAB LOCATION: [address] [id number] COLLECTION SITE: Client: ??[facility] Location: ??RHERB (R) Specimen Anatomical Collection Method Collection Time Receive d Time (Source) Location / / Volume Laterality Blood specimen 08/28/2015 12:12 6 (specimen) PM AUGER SUPERVISOR 12:42 PM AUGER SUPERVISOR Michelle Washington MD LAB - GENOMICS Performing Organization Address City/State/ZIP Code Phon e Number COPATH Next Generation Sequencing Oncology: Individual Genes; JAK2 (08/28/2015 12:11 PM AUGER SUPERVISOR) Component Value Ref Test Analysis Performed Pathologis t Range Method Time At Signature Copath Patient Name: JENNIFER MENDEZ PATH Report MR#: [id number] Specimen #: [id number] Collected: 08/28/2015 12:11 Received: 08/29/2015 12:36 Reported: [...] and p210) are undetectable ( please see [id number], [id number]). Clinical management should not be based on this assay and in terpretation alone. Correlation with clinical information, histology and other diagnostic tests is indicated. References: 1. Tanner SH, Som E, Eduardo NL, et al. WHO Classificatio n of Tumours of Haematopoietic and Lymphoid Tissues. Clark, Marianne: IARC P ress; 2008. --------- SIGNIFICANT [...] using an amplicon-based target enrichment on the [employer] Access Array System. The enriched DNA libraries are sequenced on an Illumina MiSeq instrument (version 3 chemistry). FASTQ fi les are processed through a custom designed bioinformatics pipeline termed Scanindel, which utilizes Cutadapt for adaptor trimming, BWA -MEM and BLAT mapping algorithms for improved indel detection capcameron ity, and a modified Freebayes algorithm for variant calling. The [facility] t call files (vcf) are [...] and its performance characteristics determined by the [facility]. It has not been cleared or approved by the FDA. The laboratory is regulated under CLIA as qualified to perform high-complexity testing. This test is used for clinical purp oses. It should not be regarded as investigational or for research. --------- Biodelcology Disclaimer --------- This report was produced using software licensed by [employer]. [employer] software is designed to be used in clinical ap plications solely as a tool to enhance medical utility and improve oper ational efficiency. The use of [employer] software is not a subst itute for medical judgment and [employer] in no way holds itself ou t as having or providing independent medical judgment or diagnostic serv ices. [employer] is not liable with respect to any treatment or diagnosis made in connection with this report. --------- Electronic Signature --------- Electronically signed by: Karmen Garcia MD 09/06/2015 Electronically Signed Out By: Karmen Garcia MD CPT Codes: A: S1729-[id number], [id number] TESTING LAB LOCATION: [address] [id number] COLLECTION SITE: Client: ??[facility] Location: ??[facility] (R) Specimen Anatomical Collection Method Collection Time Receive d Time (Source) Location / / Volume Laterality Blood specimen 08/28/2015 12:11 6 (specimen) PM AUGER SUPERVISOR 12:36 PM AUGER SUPERVISOR Michelle Washington MD LAB - GENOMICS Performing Organization Address City/State/ZIP Code Phon e Number COPATH CT Abdomen Pelvis w/o Contrast (stone protocol) (08/28/2015 11:33 AM AUGER SUPERVISOR) Anatomical Region Laterality Modality Abdomen/Pelvis, SUBRAD CT BODY, UMP CT ABDOMEN PELVIS Computed Tomography Specimen (Source) Anatomical Location Collection Method / Collectio n Time Received Time / Laterality Volume Impressions 08/28/2015 11:44 AM AUGER SUPERVISOR IMPRESSION: 1. Marked splenomegaly. 2. Cholelithiasis. 3. Remainder of the scan is negative. BABAK ALEX MD Narrative 08/28/2015 11:[address] ABDOMEN/PELVIS WITHOUT CONTRAST 08/28/2015 11:33 AM [...] ORDERABLES (ABNORMAL) Reticulocyte count (08/28/2015 10:33 AM AUGER SUPERVISOR) Analysis Performed At Patho logist Time Signature % Retic 3.4 (H) 0.5 - 2.0 [place] % [facility] Absolute Retic 127.3 (H) 25 - 95 [place] 10e9/L [facility] Specimen Anatomical Collection Method Collection Time Receive d Time (Source) Location / / Volume Laterality 08/28/2015 10:33 08/28/2015 AM AUGER SUPERVISOR 10:49 AM AUGER SUPERVISOR Michelle Washington MD LAB - BLOOD ORDERABLES Performing Organization Address City/State/ZIP Code Phon e Number M [facility] [address] [place], [place] [address] [facility] [address] [phone] Blood Morphology Pathologist Review (08/28/2015 10:33 AM AUGER SUPERVISOR) Component Value Ref Test Analysis Performed Pathologis t Range Method Time At Signature Copath Patient Name: JENNIFER MENDEZ PATH Report MR#: [id number] Specimen #: [id number] Collected: 08/28/2015 Received: 08/28/2015 [...] 08-29-2015 @ 3:39 PM). CPT Codes: A: 31911-NPOX TESTING LAB LOCATION: [address] [place], [place] ??[address] COLLECTION SITE: Client: ??[facility] Location: ??RHERA (R) Specimen Anatomical Collection Method Collection Time Receive d Time (Source) Location / / Volume Laterality Blood specimen 08/28/2015 10:33 6 2:01 (specimen) AM AUGER SUPERVISOR PM AUGER SUPERVISOR Michelle Washington MD LAB - BEAKER AP Performing Organization Address City/[facility]/ZIP Code Phon e Number COPATH (ABNORMAL) Basic metabolic panel (08/28/2015 10:33 AM AUGER SUPERVISOR) P athologist Signature Sodium 141 133 - 144 [place] mmol/L [facility] Potassium 4.1 3.4 - 5.3 [place] mmol/L [facility] Chloride 106 94 - 109 [place] mmol/L [facility] Carbon Dioxide 29 20 - 32 [place] mmol/L [facility] Anion Gap 6 3 - 14 [place] mmol/L [facility] Glucose 101 (H) 70 - 99 [place] mg/dL [facility] Urea Nitrogen 18 7 - 30 [place] mg/dL [facility] Creatinine 0.71 0.52 - [place] 1.04 mg/dL [facility] GFR Estimate 88 >60 [place] mL/min/1.[address] Comment: Non GFR Calc GFR Estimate If Black >90 >60 mL/min/1.7m2 F [facility] GFR Calc HOSP ITAL Calcium 9.2 8.5 - 10.1 mg/dL [facility] Specimen Anatomical Collection Method Collection Time Receive d Time (Source) Location / / Volume Laterality Blood specimen 08/28/2015 10:33 6 (specimen) AM AUGER SUPERVISOR 10:49 AM AUGER SUPERVISOR Michelle Washington MD LAB - BLOOD ORDERABLES Performing Organization Address City/State/ZIP Code Phon e Number M [facility] [address] [place], [place] [address] [facility] [address] [place], [place] [address] [phone] (ABNORMAL) CBC with platelets differential (08/28/2015 10:33 AM AUGER SUPERVISOR) Component Value Ref Test Analysis Performed Pathologis t Range Method Time At Signature WBC 7.2 4.0 - [facility] 11.0 [facility] 10e9/L [facility] RBC Count 3.87 3.8 - [place] 5.2 [facility] 10e12/L [facility] Hemoglobin 10.6 (L) 11.7 - [place] 15.7 [facility] g/dL [facility] Hematocrit 33.9 (L) 35.0 - [place] 47.0 % [facility] MCV 88 78 - [place] 100 fl [facility] MCH 27.4 26.5 - [place] 33.0 pg [facility] MCHC 31.3 (L) 31.5 - [place] 36.5 [facility] g/dL [facility] RDW 20.2 (H) 10.0 - [place] 15.0 % [facility] Platelet Count 323 150 - [place] 450 [facility] 10e9/L [facility] Diff Method Manual Differential [place] Slide reviewed by Pathologist KAUSHAL Marked anisopoikilocytosis, macrocytes, elliptoc ytes, tear drops, circulating HOSPITAL NRBCs. Left shift, including rare immature blast like cell Platelets OK with large forms present. Leukoerythroblastic r eaction. Audi Melissa M.D., Pathologist ANGUS % Neutrophils 79.0 % [facility] Comment: Increased Bands % Lymphocytes 11.0 % [facility] % Monocytes 4.0 % [facility] % Eosinophils 0.0 % [facility] % Basophils 0.0 % [facility] % Metamyelocytes 1.0 % [facility] % Myelocytes 4.0 % [facility] % Promyelocytes 1.0 % [facility] Absolute Neutrophil 5.7 1.6 - 8.3 10e9/L [facility] Absolute Lymphocytes 0.8 0.8 - 5.3 10e9/L [facility] Absolute Monocytes 0.3 0.0 - 1.3 10e9/L [facility] Absolute Eosinophils 0.0 0.0 - 0.7 10e9/L [facility] Absolute Basophils 0.0 0.0 - 0.2 10e9/L [facility] Absolute Metamyelocytes 0.1 (H) 0 10e9/L [facility] Absolute Myelocytes 0.3 (H) 0 10e9/L [facility] Absolute Promyeloctyes 0.1 (H) 0 10e9/L [facility] Anisocytosis Moderate [facility] Poikilocytosis Marked [facility] RBC Fragments Slight [facility] Teardrop Cells Marked [facility] Ovalocytes Moderate [facility] Microcytes Present [facility] Platelet Estimate Normal [facility] Specimen Anatomical Collection Method Collection Time Receive d Time (Source) Location / / Volume Laterality Blood specimen 08/28/2015 10:33 6 (specimen) AM AUGER SUPERVISOR 10:49 AM AUGER SUPERVISOR Michelle Washington MD LAB - BLOOD ORDERABLES Performing Organization Address City/State/ZIP Code Phon e Number M [place] [address] [address] [place] [address] [phone] documented in this encounter Visit Diagnoses Diagnosis [...] 1,000 mLs 1000 mL/hr Intravenous, 1,000 mL, AUGER SUPERVISOR ONCE, at 1,000 mL/hr, Administer over 1 Hours, On Fri08/28/15 at 1015, For 1 dose morphine (PF) injection 4 mg Given 08/28/2015 12:29 PM AUGER SUPERVISOR 4 mg 4 mg, Intravenous, EVERY 15 MIN PRN, moderate to severe pain, Starting on Fri08/28/15 at 1014, For 3 doses Given 08/28/2015 11:08 AM AUGER SUPERVISOR 4 mg Given 08/28/2015 10:38 AM AUGER SUPERVISOR 4 mg ondansetron (ZOFRAN) injection 4 mg Given 08/28/2015 10:38 AM AUGER SUPERVISOR 4 mg 4 mg, Intravenous, EVERY 30 MIN PRN, nausea, vomiting, Administer over 2-5 Minutes, Starting on Fri08/28/15 at 1014, For 3 doses, May repeat in 30 minutes as needed, up to 3 doses. documented in this encounter Active and Recently Administered Medications Times are shown in AUGER SUPERVISOR. Scheduled Medication Order 08/26/2015 08/27/2015 08/28/2015 0.9% [...] doses. documented in this encounter Care Teams Hospital Account Manager Relationship Specialty Start Date End Date No Ref-Primary, Physician PCP - General 08/28/15 09/10/15 documented as of this encounter
--- OUTSIDE RECORDS SUMMARY | 2022-05-02 12:48 | XMS_ITS | Encounter Summary ---
:1970 Author Organization [facility] Address [address] [place] [address]. [place] [address] Care Team Providers Name Role Phone Unavailable Primary Care Provider Unavailable Encounter Details Date Type Department Care Team Description 10/11/2014 Telephone [facility] Dora Goss, RN [address] [place] [phone] Social History Tobacco Use Types Packs/Day Years Used Date Smoking Tobacco: Never Assessed Sex Assigned at Date Recorded Not on file documented as of this encounter Miscellaneous Notes Telephone Encounter - Dora Goss, RN - 10/11/2014 7:48 AM CDT Call Type: Triage Call Presenting Problem: Menstruation started two days ago and has not had since 6 months ago and is bleeding heavily vaginally. Soaking over 1 pad per hour. [facility] Triage/ Vaginal Bleeding: Premenopausal/Disposition is to See ED Immediately. Triage Note: Guideline Title: Vaginal Bleeding: Premenopausal, Abnormal Recommended Disposition: See ED Immediately Original Inclination: Wanted to speak with a nurse Override Disposition: Intended Action: Go to Hospital / ED Physician Contacted: No Heavy vaginal bleeding (soaking 1 pad/tampon every hour for 2 hours or more) ? YES Foul-smelling vaginal discharge ? NO Vaginal trauma, sexual assault or rape ? NO Has IUD inserted ? NO New or worsening signs and symptoms that may indicate shock ? NO , less than 20 weeks gestation ? NO , greater than 20 weeks gestation ? NO Unbearable abdominal/pelvic pain or cramping ? NO Abdominal/pelvic pain AND has ectopic risk factor(s) ? NO Profuse vaginal bleeding not contained by pads or tampons ? NO Possible trauma from vaginal foreign body ? NO Recent [employer] surgery ? NO Menopausal AND not on menopausal hormone therapy (MHT) ? NO Menopausal AND on menopausal hormone therapy (MHT) ? NO Recent childbirth or miscarriage ? NO Persistent dizziness OR lightheadedness that does not resolve within ten minutes ? NO Physician Instructions: Care Advice: Another adult should drive. Bring any tissue that has passed for examination by provider. Call EMS 911 if signs and symptoms of shock develop (such as unable to stand due to faintness, dizziness, or lightheadedness new onset of confusion slow to respond or difficult to awaken skin is pale, abdi, cool, or moist to touch severe weakness loss of consciousness). IMMEDIATE ACTION Write down provider's name. List or place the following in a bag for transport with the patient: current prescription and/or nonprescription medications alternative treatments, therapies and medications and street drugs. Take sips of clear liquids (such as water, clear fruit juices without pulp, soda, tea or coffee without dairy or non-dairy creamer, clear broth or bouillon, oral hydration solution, or plain gelatin, fruit ices/popsicles, hard candy) as tolerated. Sucking on ice chips is another option. documented in this encounter Plan of Treatment Not on filedocumented as of this encounter Visit Diagnoses Not on filedocumented in this encounter
--- OUTSIDE RECORDS SUMMARY | 2022-05-02 12:48 | XMS_ITS | Encounter Summary ---
:1970 Author Organization [facility] Address [address] [place] [address] Care Team Providers Name Role Phone No Ref-Primary, Physician Primary Care Provider [phone] Reason for Visit Auth/Cert Specialty Diagnoses / Procedures Referred By Contact Refer red To Contact Surgery Diagnoses up Rh Periop Services Procedures BIOPSY BONE MARROW [address] [place], [place] [address] Phone: Fax: Referral ID Status Reason Start Date Expiration Date Visits Requ ested Visits Authorized [id number] 1 1 Encounter Details Date Type Department Care Team Description 09/14/2015 Surgery [facility] Paolo Purcell Ma rrow Biopsy, [facility] henri Scott MD Left Posterior iliac [address] [place], [place] [phone] Surgery Details Date/Time Status Location OR Service [...] Comments Blood Pressure 116/76 09/14/2015 10:20 AM DRY CLEANING MANAGER Pulse 81 09/14/2015 8:01 AM DRY CLEANING MANAGER Temperature 36.2 ??C (97.1 ??F) 09/14/2015 10:20 AM DRY CLEANING MANAGER Respiratory Rate 12 09/14/2015 10:20 AM DRY CLEANING MANAGER Oxygen Saturation 97% 09/14/2015 10:20 AM DRY CLEANING MANAGER Inhaled Oxygen Concentration - - Weight 126.9 kg (279 lb 12.2 oz) 09/14/2015 8:01 AM DRY CLEANING MANAGER Height 170.2 cm (5' 7) 09/14/2015 8:01 AM DRY CLEANING MANAGER Body Mass Index 43.82 09/14/2015 8:01 AM DRY CLEANING MANAGER documented in this encounter Discharge Instructions Discharge [...] will have the results within 72 hours. CLEANING MANAGER documented in this encounter Medications at Time [...] days available in the hospital surgical encounter. CLEANING MANAGER Source Note - Michelle Washington MD - 08/28/2015 10:09 AM DRY CLEANING MANAGER History Chief Complaint: Flank Pain HPI Jennifer [...] to have a bonemarrow biopsy followup with oil prospecting observer/oncologist in the clinic for further evaluation and [...] and the provider's statements to me. 08/28/2015 [facility] EMERGENCY DEPARTMENT Michelle Washington MD 08/29/15 1002 CLEANING MANAGER documented in this encounter Procedure Notes Paolo [...] and analgesia, were given to the patient. CLEANING MANAGER documented in this encounter Nursing Notes Latoya Whitehead RN - 09/14/2015 12:11 PM CST Reviewed follow up with Dr Nolen planned for september 20, information on clinic location and numberreviewed. Pt encouraged to call his clinic for further pain medication refill and for questions regarding results. CLEANING MANAGER documented in this encounter Plan of Treatment Not on filedocumented as of this encounter Procedures Procedure Name Priority Date/Time Associated Comments Diagnosis LEUKEMIA LYMPHOMA Routine 09/14/2015 10:10 AM Res ults for this EVALUATION NON CSF DRY CLEANING MANAGER procedure are in the results section. NEXT GENERATION Routine 09/14/2015 10:10 AM Resul ts for this SEQUENCING ONCOLOGY DRY CLEANING MANAGER procedur e are in the results section. CHROMOSOME ANALYSIS, Routine 09/14/2015 10:10 AM Results for this BONE MARROW, DRY CLEANING MANAGER procedure are i n DIAGNOSIS/RELAPSE the result s section. BONE MARROW BIOPSY Routine 09/14/2015 10:10 AM Re sults for this DRY CLEANING MANAGER procedure are i n the results section. EKG 12-LEAD, TRACING Routine 09/14/2015 9:55 AM R esults for this ONLY DRY CLEANING MANAGER procedure are i n the results section. BIOPSY, BONE MARROW 09/14/2015 9:23 AM massive splenog maureen DRY CLEANING MANAGER Special Needs 5'7 278# in H & P CBC WITH PLATELETS & STAT 09/14/2015 8:25 AM DRY CLEANING MANAGER Results for this procedure DIFFERENTIAL are in the resu lts section. RETICULOCYTE COUNT STAT 09/14/2015 8:25 AM DRY CLEANING MANAGER Results for this procedure are in the resu lts section. documented in this encounter Results Next Generation Sequencing Oncology (09/14/2015 10:10 AM DRY CLEANING MANAGER) Component Value Ref Test Analysis Performed Pathologis t Range Method Time At Signature Copath Patient Name: JENNIFER MENDEZ PATH Report MR#: [id number] Specimen #: [id number] Collected: 09/14/2015 10:10 Received: 09/15/2015 09:13 Reported: [...] of the C-terminal amino acid KDEL sequence. Szp-ig-ayutj i nsertion and/or deletions in exon 9 of the CALR gene are detected in approximately 65-85% of cases of JAK2 and MPL mutation negat otoniel essential thrombocythemia (ET) and primary myelofibrosis (PM F) [2,3]. BCR-ABL1 major and minor transcripts are undetectable (see G 16-1241 and G38-7305). Clinical management should not be based on this assay and in terpretation alone. Correlation with clinical information, histology and other diagnostic tests is indicated. 1. Callie Joel, Lopez CE, Mina LO, et al. Somatic CALR mut ations in myeloproliferative neoplasms with nonmutated JAK2. N Engl J Med. 2013;369(25):2391-405. 2. Alton VILLARREAL, Yeny RL, Kathy T, et al. XKE331 mutations in myeloproliferative and other myeloid disorders: [...] Pathogenic Therapeutic Implications*: None Additional Information: COSMIC: [id number] [http://cancer.warner.ac.uk/cosmic/mutation/overview?en=7944 056] Allele Frequency: 0.0% dbSNP: N/A References: 1: Andnia H, Dean T, Kayla K, Mary G, Jermaine A, Opal M, Katia A, Wes J, Mana J, Yoni M, Zuri A, Juanito P, [place], M aida T. Distinct clinical characteristics of myeloproliferative neoplasms wit h calreticulin mutations. Haematologica. 2014 Jan;99(7):1184-90. doi: 10.3324/haematol.2014.908346. Epub 2013Dec 14. PubMed PMID: 20669163; PubMed Central PMCID: [id number]. --------- Detected Alterations of Uncertain Significance --------- [...] frequency of the alteration in the [facility] (http://www.1000genomes.org/ [http://www.1000genomes .org/]) dbSNP: RS number of alteration in dbSNP database (http://www.ncbi.nlm.nih.gov/SNP [http://www.ncbi.nlm.nih.go v/SNP]) --------- TEST DETAILS --------- Methodology --------- Genomic DNA is extracted from the sample, and sequencing lara raries are prepared using an amplicon-based target enrichment method on the CopyRightNow Array System. The enriched DNA damion latoya are sequenced on an Illumina MiSeq instrument (version 3 chemistry quality control analyst ry, 300 bp paired end reads). FASTQ files are processed through a [employer] App designed bioinformatics pipeline termed Scanindel (Kenney et al. Genome Medicine, 2015), which utilizes Cutadapt for adaptor trimming, BWA-MEM and BLAT mapping algorithms for improved indel detection capability, and a modified Freebayes algorithm for variant calling. The TopLog t call files (vcf) are filtered by a custom R-script to remove sub-thresh old calls with less than 500X coverage and/or minor allele frequency ( MAF) less than thresholds defined for single nucleotide variants (5-10 %) and insertion/deletion variants (1-5%). Clinically relevant muta tions from this filtered variant list are annotated by a pathologist wi Fillmy software and reported. The assay bed file [...] and its performance characteristics determined by the [facility]. It has not been cleared or approved by the FDA. The laboratory is regulated under CLIA as qualified to perform high-complexity testing. This test is used for clinical purp oses. It should not be regarded as investigational or for research. --------- GenomOncology Disclaimer --------- This report was produced using software licensed by [employer]. [employer] software is designed to be used in clinical ap plications solely as a tool to enhance medical utility and improve oper ational efficiency. The use of [employer]ict[employer] App software is not a subst itute for medical judgment and [employer] in no way holds itself ou t as having or providing independent medical judgment or diagnostic serv ices. [employer] is not liable with respect to any treatment or diagnosis made in connection with this report. --------- Electronic Signature --------- Electronically signed by: Alejandro Andrews MD, PhD 09/25/2015 Electronically Signed Out By: Alejandro Andrews M.D., Physicians CPT Codes: A: F7052-SJSPWA, MPLMPNPNGSOTC, CALRNGSTC2 TESTING LAB LOCATION: [address] [address] COLLECTION SITE: Client: ??[facility] Location: ??BILLIE (Katrina) Specimen Anatomical Collection Method Collection Time Receive d Time (Source) Location / / Volume Laterality 09/14/2015 10:10 09/15/2015 9:13 AM DRY CLEANING MANAGER AM DRY CLEANING MANAGER Paolo Purcell MD LAB - GENOMICS Performing Organization Address City/State/ZIP Code Phon e Number [place] Leukemia lymphoma evaluation (09/14/2015 10:10 AM DRY CLEANING MANAGER) Component Value Ref Test Analysis Performed At [facility] Range Method Time Signature Copath Patient Name: JENNIFER MENDEZ PATH Report MR#: [id number] Specimen #: [id number] Collected: 09/14/2015 10:10 Received: 09/14/2015 16:12 Reported: [...] developed and its performance characteristics determined by [facility]. ??It has not been cleared or approved by the U .S. Food and Drug Administration. CPT Codes: A: 68097-SE, 42619-SMUVLWI, 58505-78-PNQG93(11), 26495-06-N[place] OW59(7), 47091-GDCW>15 TESTING LAB LOCATION: [address] [address] COLLECTION SITE: Client: ??[facility] Location: ??RHOR (R) Specimen Anatomical Collection Method Collection Time Receive d Time (Source) Location / / Volume Laterality 09/14/2015 10:10 09/14/2015 4:12 AM DRY CLEANING MANAGER PM DRY CLEANING MANAGER Paolo Purcell [facility] OR DERABLES Performing Organization Address City/State/ZIP Code Phon e Number [place] Bone marrow biopsy (09/14/2015 10:10 AM DRY CLEANING MANAGER) Component Value Ref Test Analysis Performed Pathologis t Range Method Time At [facility] Patient Name: JENNIFER MENDEZ PATH Report MR#: [id number] Specimen #: [id number] Collected: 09/14/2015 Received: 09/14/2015 [...] ??No increased blasts or evidence of ac [place] leukemia. See comment and description. Peripheral blood Findings: ??Normochromic normocytic anemia. Leukoerythroblastic blood picture. ??Left shifted granulocyt es and 1% or less circulating blasts. Special Studies: - Immunophenotyping: ?? Reported to show polytypic B cells, no aberrant immunophenotype on T cells, no increase in myeloid blasts, a nd no abnormal myeloid blast population. ??See complete separate r eport IF 16-897. - Cytogenetic Studies: ?? Pending. ??See separate [...] sideroblasts is present (35%). CPT Codes: A: 09787-MJOI, 29168-QVTG, 83803-WGAN, 51699-MXFH, 72337-MVF , 16566-KHVX, 63921-LKWT, 21144-ISCBX, 23503-PBGEW, 39635-SUXD S, 50738-KSL, SOH TESTING LAB LOCATION: [facility] [address] [place], [place] ??[address] COLLECTION SITE: Client: ??[facility] Location: ??RHOR (R) Specimen Anatomical Collection Method Collection Time Receive d Time (Source) Location / / Volume Laterality 09/14/2015 10:10 09/14/2015 AM DRY CLEANING MANAGER 10:45 AM DRY CLEANING MANAGER Rafi Nolen [facility] Performing Organization Address City/State/ZIP Code Phon e Number [place] Chromosome bone marrow (09/14/2015 10:10 AM DRY CLEANING MANAGER) Component Value Ref Test Analysis Performed Pathologis t Range Method Time At Signature Copath Patient Name: JENNIFER MENDEZ PATH Report MR#: [id number] Specimen #: [id number] Collected: 09/14/2015 10:10 Received: 09/14/2015 17:05 Reported: [...] was performed on an uncultured specimen with [employer] [place] [employer] r probe to X41Y497 (13q14.3) / LAMP1 (13q34) (dual color). ISCN: ??46,XX,del(13)(q12q14)[6]/46,XX[14].nuc adrian([id number],THXE9k8)[30/200] INTERPRETATION: Six (30%) of the 20 metaphase [...] interphase cells examined to have only one X12O433 signal present. These findings are consistent with [...] its performance jabier acteristics determined by the [facility], [facility]. ??It has not been cleared or approved by the U.S. Food and Drug Administration. Electronically Signed Out By: Rajani Ferreira M.D., [facility] CPT Codes: A: 59794-WVIWE, 83610-KVACL, 97179-QAASEJO, 41443-PAGAVU B: 42499-WXGR, 30056-JYNRV, 85718-ANUZZTP TESTING LAB LOCATION: [facility] [address], [facility] [address] [place] [address] COLLECTION SITE: Client: ??[facility] Location: ??RHPRE (R) Specimen Anatomical Collection Method Collection Time Receive d Time (Source) Location / / Volume Laterality 09/14/2015 10:10 09/14/2015 5:05 AM DRY CLEANING MANAGER PM DRY CLEANING MANAGER Rafi Gall MD LAB - [facility] Performing Organization Address City/State/ZIP Code Phon e Number [place] EKG 12-lead, tracing only (09/14/2015 9:55 AM DRY CLEANING MANAGER) [facility] Method Time Signature Interpretation ECG Click View RADIOLOGY Image link RESULTS to view waveform and result Specimen (Source) Anatomical Collection Method Collection Time Re ceived Time Location / / Volume Laterality 09/14/2015 9:55 AM DRY CLEANING MANAGER Matthew Donnelly MD ECG ORDERABLES Performing Organization Address City/[facility]/ZIP Code Phon e Number RADIOLOGY RESULTS (ABNORMAL) Reticulocyte count (09/14/2015 8:25 AM DRY CLEANING MANAGER) Analysis Performed At [facility] logist Time Signature % Retic 4.4 (H) 0.5 - 2.0 [facility] Absolute Retic 150.2 (H) 25 - 95 [place] 10e9/L [facility] Specimen Anatomical Collection Method Collection Time Receive d Time (Source) Location / / Volume Laterality Blood specimen 09/14/2015 8:25 AM 016 8:31 (specimen) DRY CLEANING MANAGER AM DRY CLEANING MANAGER Paolo Purcell MD LAB - BLOOD ORDERABLES Performing Organization Address City/[facility]/ZIP [facility] Phon e Number [facility] [address] [phone] [facility] [address] [phone] (ABNORMAL) CBC with platelets differential (09/14/2015 8:25 AM DRY CLEANING MANAGER) Component Value Ref Test Analysis Performed At [facility] Range Method Time Signature WBC 4.9 4.0 - [place] 11.0 [facility] 10e9/L [facility] RBC Count 3.42 (L) 3.8 - [place] 5.2 [facility] 10e12/L [facility] Hemoglobin 9.2 (L) 11.7 - [place] 15.7 [facility] g/dL [facility] Hematocrit 29.9 (L) 35.0 - [place] 47.0 % [facility] MCV 87 78 - 100 [facility] MCH 26.9 26.5 - [place] 33.0 pg [facility] MCHC 30.8 (L) 31.5 - [place] 36.5 [facility] g/dL HOSPITAL RDW 21.0 (H) 10.0 - [place] 15.0 % [facility] Platelet Count 219 150 - [place] 450 [facility] 10e9/L [facility] Diff Method Manual [place] Differential [facility] % Neutrophils 86.0 % [facility] % Lymphocytes 3.0 % [facility] % Monocytes 2.0 % [facility] % Eosinophils 3.0 % [facility] % Basophils 0.0 % [facility] % Metamyelocytes 2.0 % [facility] % Myelocytes 3.0 % [facility] % Blasts 1.0 % [facility] Nucleated RBCs 1 (H) 0 /100 [facility] Absolute 4.2 1.6 - [place] Neutrophil 8.3 [facility] 10e9/L [facility] Absolute 0.1 (L) 0.8 - [place] Lymphocytes 5.3 [facility] 10e9/L [facility] Absolute 0.1 0.0 - [place] Monocytes 1.3 [facility] 10e9/L [facility] Absolute 0.1 0.0 - [place] Eosinophils 0.7 [facility] 10e9/L [facility] Absolute 0.0 0.0 - [place] Basophils 0.2 [facility] 10e9/L [facility] Absolute 0.1 (H) 0 10e9/L [place] Metamyelocytes [facility] Absolute 0.1 (H) 0 10e9/L [place] [facility] Absolute Blasts 0.0 0 10e9/L [facility] Absolute 0.0 [place] Nucleated RBC [facility] Anisocytosis Moderate [facility] Poikilocytosis Marked [facility] Polychromasia Slight [facility] RBC Fragments Slight [facility] Teardrop Cells Marked [facility] Ovalocytes Marked [facility] Microcytes Present [facility] Platelet Estimate Normal [facility] Specimen Anatomical Collection Method Collection Time Receive d Time (Source) Location / / Volume Laterality Blood specimen 09/14/2015 8:25 AM 016 8:31 (specimen) DRY CLEANING MANAGER AM DRY CLEANING MANAGER Paolo Purcell MD LAB - BLOOD ORDERABLES Performing Organization Address City/State/ZIP Code Phon e Number [facility] [address] [address] [facility] [address] [phone] documented in this encounter Visit Diagnoses Not on filedocumented in this encounter Administered Medications Inactive Administered Medications - up to 3 most recent administrations Medication Order MAR Action Action Date Dose Rate Site fentaNYL (SUBLIMAZE) injection Given 09/14/2015 11:25 AM DRY CLEANING MANAGER 50 mcg 25-50 mcg 25-50 mcg, Intravenous, [...] injection 50 mcg Given 09/14/2015 9:05 AM DRY CLEANING MANAGER 50 mcg 50 mcg, Intravenous, ONCE, On Aruna 09/14/15 at 0915, For 1 dose, Pre-procedure lidocaine BUFFERED 1 % Given 09/14/2015 10:16 AM 10 mLs Operative Site/Surgical solution DRY CLEANING MANAGER Site PRN, Starting on Aruna 09/14/15 at 1016, Intra-procedure oxyCODONE (ROXICODONE) immediate release Given 09/14/2015 11:27 AM DRY CLEANING MANAGER 5 mg tablet 5 mg 5 mg, Oral, EVERY 4 HOURS PRN, moderate to severe pain, Starting on Aruna 09/14/15 at 1120, Phase ll documented in this encounter Active and Recently Administered Medications Times are shown in DRY CLEANING MANAGER. Scheduled Medication Order 09/12/2015 09/13/2015 09/14/2015 fentaNYL (SUBLIMAZE) injection 50 mcg (COMPLETED) 09 (Given - Provider: Elli Cooper RN - Comment: 50 mcg given) 50 mcg, Intravenous, ONCE, On Aruna 16 at 0915, For 1 dose, Pr e-procedure [...] ll documented in this encounter Care Teams Gear Cutting Machine Set Up Operator Relationship Specialty Start Date End Date No Ref-Primary, Physician PCP - General 09/11/15 12/12/15 documented as of this encounter
--- OUTSIDE RECORDS SUMMARY | 2022-05-02 12:48 | XMS_ITS | Encounter Summary ---
:1970 Author Organization [place] Address [address] [place] [address] Care Team Providers Name Role Phone No Ref-Primary, Physician Primary Care Provider [phone] Reason for Visit Auth/Cert Specialty Diagnoses / Procedures Referred By Contact Refer red To Contact Surgery Diagnoses up Rh Periop Services Procedures BIOPSY BONE MARROW [address] [place], [place] [address] Phone: Fax: Referral ID Status Reason Start Date Expiration Date Visits Requ ested Visits Authorized [id number] 1 1 Encounter Details Date Type Department Care Team Description 09/14/2015 Hospital Encounter [facility] Paolo Smith PreOP/PostOP MD Alea [address] [place], [place] [phone] Social History Tobacco Use Types Packs/Day Years [...] Comments Blood Pressure 150/85 09/14/2015 12:00 PM INVENTORY AUDITOR Pulse 81 09/14/2015 8:01 AM INVENTORY AUDITOR Temperature 36.2 ??C (97.1 ??F) 09/14/2015 10:20 AM INVENTORY AUDITOR Respiratory Rate 16 09/14/2015 12:00 PM INVENTORY AUDITOR Oxygen Saturation 98% 09/14/2015 12:00 PM INVENTORY AUDITOR Inhaled Oxygen Concentration - - Weight 126.9 kg (279 lb 12.2 oz) 09/14/2015 8:01 AM INVENTORY AUDITOR Height 170.2 cm (5' 7) 09/14/2015 8:01 AM INVENTORY AUDITOR Body Mass Index 43.82 09/14/2015 8:01 AM INVENTORY AUDITOR documented in this encounter Discharge Instructions Discharge [...] will have the results within 72 hours. NTORY AUDITOR documented in this encounter Medications at Time [...] days available in the hospital surgical encounter. NTORY AUDITOR Source Note - Michelle Washington MD - 08/28/2015 10:09 AM INVENTORY AUDITOR History Chief Complaint: Flank Pain HPI Jennifer [...] to have a bonemarrow biopsy followup with supervisor of operations/oncologist in the clinic for further evaluation and [...] and the provider's statements to me. 08/28/2015 [facility] EM[facility] Michelle Washington MD 08/29/15 1002 NTORY AUDITOR documented in this encounter Procedure Notes Paolo [...] and analgesia, were given to the patient. NTORY AUDITOR documented in this encounter Nursing Notes Latoya Whitehead RN - 09/14/2015 12:11 PM CST Reviewed follow up with Dr Nolen planned for september 20, information on clinic location and numberreviewed. Pt encouraged to call his clinic for further pain medication refill and for questions regarding results. NTORY AUDITOR documented in this encounter Plan of Treatment Not on filedocumented as of this encounter Procedures Procedure Name Priority Date/Time Associated Comments Diagnosis LEUKEMIA LYMPHOMA Routine 09/14/2015 10:10 AM Res ults for this EVALUATION NON CSF INVENTORY AUDITOR procedure are in the results section. NEXT GENERATION Routine 09/14/2015 10:10 AM Resul ts for this SEQUENCING ONCOLOGY INVENTORY AUDITOR procedur e are in the results section. CHROMOSOME ANALYSIS, Routine 09/14/2015 10:10 AM Results for this BONE MARROW, INVENTORY AUDITOR procedure are i n DIAGNOSIS/RELAPSE the result s section. BONE MARROW BIOPSY Routine 09/14/2015 10:10 AM Re sults for this INVENTORY AUDITOR procedure are i n the results section. EKG 12-LEAD, TRACING Routine 09/14/2015 9:55 AM R esults for this ONLY INVENTORY AUDITOR procedure are i n the results section. BIOPSY, BONE MARROW 09/14/2015 9:23 AM massive splenog maureen INVENTORY AUDITOR Special Needs 5'7 278# in H & P CBC WITH PLATELETS & STAT 09/14/2015 8:25 AM INVENTORY AUDITOR Results for this procedure DIFFERENTIAL are in the resu lts section. RETICULOCYTE COUNT STAT 09/14/2015 8:25 AM INVENTORY AUDITOR Results for this procedure are in the resu lts section. documented in this encounter Results Next Generation Sequencing Oncology (09/14/2015 10:10 AM INVENTORY AUDITOR) Component Value Ref Test Analysis Performed Pathologis t Range Method Time At Signature Copath Patient Name: JENNIFER MENDEZ PATH Report MR#: [id number] Specimen #: [id number] Collected: 09/14/2015 10:10 Received: 09/15/2015 09:13 Reported: [...] of the C-terminal amino acid KDEL sequence. Dzv-hm-enddp i nsertion and/or deletions in exon 9 of the CALR gene are detected in approximately 65-85% of cases of JAK2 and MPL mutation negat otoniel essential thrombocythemia (ET) and primary myelofibrosis (PM F) [2,3]. BCR-ABL1 major and minor transcripts are undetectable (see G 16-9840 and E32-3164). Clinical management should not be based on this assay and in terpretation alone. Correlation with clinical information, histology and other diagnostic tests is indicated. 1. Lopez Jensen, Mina EJ, et al. Somatic CALR mut ations in myeloproliferative neoplasms with nonmutated JAK2. N Engl J Med. 2013;369(25):2391-405. 2. Alton AD, Yeny RL, Kathy T, et al. LXV788 mutations in myeloproliferative and other myeloid disorders: a study of 1 182 patients. Blood. 2006;108(10):3472-6. 3. Jocy T, Lukas H, Yonas , et al. Somatic m utations of calreticulin in myeloproliferative neoplasms. N Engl J Med. 2013;369(25):7159-34. --------- SIGNIFICANT ALTERATIONS --------- Detected Alterations of Known or Potential Pathogenicity: CA LR K385fs Detected Alterations of Uncertain Significance: None --------- GENETIC ALTERATIONS --------- Detected Alterations of Known or Potential Pathogenicity --------- Gene: CALR Alteration: K385fs [id number] Type of Alteration: Insertion - Frameshift Significance: Pathogenic Therapeutic Implications*: None Additional Information: COSMIC: [id number] [http://cancer.warner.ac.uk/cosmic/mutation/overview?xt=8971 056] Allele Frequency: 0.0% dbSNP: N/A References: 1: Andrimariposa H, Dean T, Kayla K, Mary G, Jermaine A, Opal Dillon, Katia A, Wes J, Mana J, Yoni M, Zuri A, Juanito P, Mercy A, M aida T. Distinct clinical characteristics of myeloproliferative neoplasms wit h calreticulin mutations. Haematologica. 2014 Jan;99(7):1184-90. doi: 10.3324/haematol.2014.043003. Epub 2013Dec 14. PubMed PMID: 00349577; PubMed Central PMCID: [id number]. --------- Detected Alterations of Uncertain Significance --------- [...] Allele frequency of the alteration in the FancyBoxes Project (http://www.Adap.tv.org/ [http://www.1000genomes .org/]) dbSNP: RS number of alteration in dbSNP database (http://www.ncbi.nlm.nih.gov/SNP [http://www.ncbi.nlm.nih.go v/SNP]) --------- TEST DETAILS --------- Methodology --------- Genomic DNA is extracted from the sample, and sequencing lara raries are prepared using an amplicon-based target enrichment method on the PrivateFly Array System. The enriched DNA damion latoya are sequenced on an Illumina MiSeq instrument (version 3 astrochemist ry, 300 bp paired end reads). FASTQ files are processed through a Viewpointso designed bioinformatics pipeline termed Scanindel (Kenney et al. Genome Medicine, 2015), which utilizes Cutadapt for adaptor trimming, BWA-MEM and BLAT mapping algorithms for improved indel detection capability, and a modified Freebayes algorithm for variant calling. The mojio t call files (vcf) are filtered by a custom R-script to remove sub-thresh old calls with less than 500X coverage and/or minor allele frequency ( MAF) less than thresholds defined for single nucleotide variants (5-10 %) and insertion/deletion variants (1-5%). Clinically relevant muta tions from this filtered variant list are annotated by a pathologist wi Fitclinelogy software and reported. The assay bed file [...] and its performance characteristics determined by the [facility], [facility]. It has not been cleared or approved by the FDA. The laboratory is regulated under CLIA as qualified to perform high-complexity testing. This test is used for clinical purp oses. It should not be regarded as investigational or for research. --------- [facility] Disclaimer --------- This report was produced using software licensed by [employer]. Helixbind software is designed to be used in clinical ap plications solely as a tool to enhance medical utility and improve oper ational efficiency. The use of Helixbind software is not a subst itute for medical judgment and ReplyBuylogy in no way holds itself ou t as having or providing independent medical judgment or diagnostic serv ices. [facility] is not liable with respect to any treatment or diagnosis made in connection with this report. --------- Electronic Signature --------- Electronically signed by: Alejandro Andrews MD, PhD 09/25/2015 Electronically Signed Out By: Alejandro Andrews M.D., [facility] CPT Codes: A: A7001-HUFZZH, MPLMPNPNGSOTC, CALRNGSTC2 TESTING LAB LOCATION: [address] [address] COLLECTION SITE: Client: ??[facility] Location: ??RHOR (R) Specimen Anatomical Collection Method Collection Time Receive d Time (Source) Location / / Volume Laterality 09/14/2015 10:10 09/15/2015 9:13 AM INVENTORY AUDITOR AM INVENTORY AUDITOR Paolo Smith MD LAB - GENOMICS Performing Organization Address City/State/ZIP Code Phon e Number COPATH Leukemia lymphoma evaluation (09/14/2015 10:10 AM INVENTORY AUDITOR) Component Value Ref Test Analysis Performed At [facility] gist Range Method Time Signature Copath Patient Name: JENNIFER MENDEZ PATH Report MR#: [id number] Specimen #: [id number] Collected: 09/14/2015 10:10 Received: 09/14/2015 16:12 Reported: [...] developed and its performance characteristics determined by [facility], [facility]. ??It has not been cleared or approved by the U .S. Food and Drug Administration. CPT Codes: A: 14667-JM, 90587-HZQHPQS, 15914-03-ZDHE68(11), 67025-38-EG OW59(7), 50763-QGPG>15 TESTING LAB LOCATION: [place] [id number] [facility] [address] [place] [address] COLLECTION SITE: Client: ??[facility] Location: ??RHOR (R) Specimen Anatomical Collection Method Collection Time Receive d Time (Source) Location / / Volume Laterality 09/14/2015 10:10 09/14/2015 4:12 AM INVENTORY AUDITOR PM INVENTORY AUDITOR Paolo Smith MD LAB - [facility] SPECIAL DIAG OR DERABLES Performing Organization Address City/State/ZIP Code Phon e Number [facility] biopsy (09/14/2015 10:10 AM INVENTORY AUDITOR) Component Value Ref Test Analysis Performed Pathologis t Range Method [facility] Name: JENNIFER MENDEZ PATH Report MR#: [id number] Specimen #: [id number] Collected: 09/14/2015 Received: 09/14/2015 [...] ??No increased blasts or evidence of ac [place] leukemia. See comment and description. Peripheral blood Findings: ??Normochromic normocytic anemia. Leukoerythroblastic blood picture. ??Left shifted granulocyt es and 1% or less circulating blasts. Special Studies: - Immunophenotyping: ?? Reported to show polytypic B cells, no aberrant immunophenotype on T cells, no increase in myeloid blasts, a nd no abnormal myeloid blast population. ??See complete separate r eport IF 16-777. - Cytogenetic Studies: ?? Pending. ??See separate [...] sideroblasts is present (35%). CPT Codes: A: 76619-LBDZ, 61024-YDNH, 16926-QTRN, 05835-CCRF, 19195-WAO , 81237-UCWG, 30157-LAGB, 11939-VJNAO, 68163-TKFVH, 38458-EOQZ S, 54231-JXQ, SOH TESTING LAB LOCATION: [address] ??[address] COLLECTION SITE: Client: ??[facility] Location: ??RHOR (R) Specimen Anatomical Collection Method Collection Time Receive d Time (Source) Location / / Volume Laterality 09/14/2015 10:10 09/14/2015 AM INVENTORY AUDITOR 10:45 AM INVENTORY AUDITOR Rafi Nolen MD [facility] Performing Organization Address City/State/ZIP Code Phon e Number COPATH Chromosome bone marrow (09/14/2015 10:10 AM INVENTORY AUDITOR) Component Value Ref Test Analysis Performed Pathologis t Range Method Time At Signature Copath Patient Name: JENNIFER MENDEZ PATH Report MR#: [id number] Specimen #: [id number] Collected: 09/14/2015 10:10 Received: 09/14/2015 17:05 Reported: [...] specimen with Roy Molecula r probe to T45Y489 (13q14.3) / LAMP1 (13q34) (dual color). ISCN: ??46,XX,del(13)(q12q14)[6]/46,XX[14].nuc adrian(G65V885w1,WOUD2z9)[30/200] INTERPRETATION: Six (30%) of the 20 metaphase [...] interphase cells examined to have only one Q25G781 signal present. These findings are consistent with [...] its performance jabier acteristics determined by the [facility], [facility]. ??It has not been cleared or approved by the U.S. Food and Drug Administration. Electronically Signed Out By: Rajani Ferreira M.D., [facility] CPT Codes: A: 55309-WOASO, 11640-AXVCZ, 89173-OTEQXQY, 12796-NPKMUB B: 87495-SDTZ, 55423-QSKJN, 37567-UKVKXKO TESTING LAB LOCATION: [address] [address] COLLECTION SITE: Client: ??[facility] Location: ??RHPRE (R) Specimen Anatomical Collection Method Collection Time Receive d Time (Source) Location / / Volume Laterality 09/14/2015 10:10 09/14/2015 5:05 AM INVENTORY AUDITOR PM INVENTORY AUDITOR Rafi Nolen MD [facility] Performing Organization Address City/State/ZIP Code Phon e Number COP[place] EKG 12-lead, tracing only (09/14/2015 9:55 AM INVENTORY AUDITOR) [facility] gist Method Time Signature Interpretation ECG Click View RADIOLOGY Image link RESULTS to view waveform and result Specimen (Source) Anatomical Collection Method Collection Time Re ceived Time Location / / Volume Laterality 09/14/2015 9:55 AM INVENTORY AUDITOR Matthew Donnelly MD ECG ORDERABLES Performing Organization Address City/State/ZIP Code Phon e Number RADIOLOGY RESULTS (ABNORMAL) Reticulocyte count (09/14/2015 8:25 AM INVENTORY AUDITOR) Analysis Performed At [facility] logist Time Signature % Retic 4.4 (H) 0.5 - 2.0 [facility] Absolute Retic 150.2 (H) 25 - 95 [place] 10e9/L [facility] Specimen Anatomical Collection Method Collection Time Receive d Time (Source) Location / / Volume Laterality Blood specimen 09/14/2015 8:25 AM 016 8:31 (specimen) INVENTORY AUDITOR AM INVENTORY AUDITOR Paolo Smith MD LAB - BLOOD ORDERABLES Performing Organization Address City/State/ZIP Code Phon e Number [place] [address] [address] [place] [address] [facility] [address] [phone] (ABNORMAL) CBC with platelets differential (09/14/2015 8:25 AM INVENTORY AUDITOR) Component Value Ref Test Analysis Performed At [facility] gist Range Method Time Signature WBC 4.9 4.0 - [place] 11.0 [facility] 10e9/L [facility] RBC Count 3.42 (L) 3.8 - [place] 5.2 [facility] 10e12/L [facility] Hemoglobin 9.2 (L) 11.7 - [place] 15.7 [facility] g/dL [facility] Hematocrit 29.9 (L) 35.0 - [place] 47.0 % [facility] MCV 87 78 - 100 [facility] MCH 26.9 26.5 - [place] 33.0 pg [facility] MCHC 30.8 (L) 31.5 - [place] 36.5 [facility] g/dL [facility] RDW 21.0 (H) 10.0 - [place] 15.0 % [facility] Platelet Count 219 150 - [place] 450 [facility] 10e9/L [facility] Diff Method Manual [place] Differential [facility] % Neutrophils 86.0 % [facility] % Lymphocytes 3.0 % [facility] % Monocytes 2.0 % [facility] % Eosinophils 3.0 % [facility] % Basophils 0.0 % [facility] % Metamyelocytes 2.0 % [facility] % Myelocytes 3.0 % [facility] % Blasts 1.0 % [facility] Nucleated RBCs 1 (H) 0 /100 [facility] Absolute 4.2 1.6 - [place] Neutrophil 8.3 [facility] 10e9/L [facility] Absolute 0.1 (L) 0.8 - [place] Lymphocytes 5.3 [facility] 10e9/L [facility] Absolute 0.1 0.0 - [place] Monocytes 1.3 [facility] 10e9/L [facility] Absolute 0.1 0.0 - [place] Eosinophils 0.7 [facility] 10e9/L [facility] Absolute 0.0 0.0 - [place] Basophils 0.2 [facility] 10e9/L [facility]OSPITAL Absolute 0.1 (H) 0 10e9/L [place] Metamyelocytes [facility] Absolute 0.1 (H) 0 10e9/L [place] Myelocytes [facility] Absolute Blasts 0.0 0 10e9/L [facility] Absolute 0.0 [place] Nucleated RBC [facility] Anisocytosis Moderate [facility] Poikilocytosis Marked [facility] Polychromasia Slight [facility] RBC Fragments Slight [facility] Teardrop Cells Marked [facility] Ovalocytes Marked [facility] Microcytes Present [facility] Platelet Estimate Normal [facility] Specimen Anatomical Collection Method Collection Time Receive d Time (Source) Location / / Volume Laterality Blood specimen 09/14/2015 8:25 AM 016 8:31 (specimen) INVENTORY AUDITOR AM INVENTORY AUDITOR Paolo Smith MD LAB - BLOOD ORDERABLES Performing Organization Address City/State/ZIP Code Phon e Number [place] [address] [address] [place], [place] [address] [phone] [facility] [address] [phone] documented in this encounter Visit Diagnoses Not on filedocumented in this encounter Administered Medications Inactive Administered Medications - up to 3 most recent administrations Medication Order MAR Action Action Date Dose Rate Site fentaNYL (SUBLIMAZE) injection Given 09/14/2015 11:25 AM INVENTORY AUDITOR 50 mcg 25-50 mcg 25-50 mcg, Intravenous, [...] injection 50 mcg Given 09/14/2015 9:05 AM INVENTORY AUDITOR 50 mcg 50 mcg, Intravenous, ONCE, On Aruna 09/14/15 at 0915, For 1 dose, Pre-procedure oxyCODONE (ROXICODONE) immediate release Given 09/14/2015 11:27 AM INVENTORY AUDITOR 5 mg tablet 5 mg 5 mg, Oral, EVERY 4 HOURS PRN, moderate to severe pain, Starting on Aruna 09/14/15 at 1120, Phase ll documented in this encounter Active and Recently Administered Medications Times are shown in INVENTORY AUDITOR. Scheduled Medication Order 09/12/2015 09/13/2015 09/14/2015 fentaNYL [...] ll documented in this encounter Care Teams Sweep Molder Relationship Specialty Start Date End Date No Ref-Primary, Physician PCP - General 09/11/15 12/12/15 documented as of this encounter
--- OUTSIDE RECORDS SUMMARY | 2022-05-02 12:48 | XMS_ITS | Encounter Summary ---
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
[2022-05-02 12:49] LABS: PCR FLU A Negative PCR FLU A (Negative); PCR FLU B Negative PCR FLU B (Negative); PCR RSV Negative PCR RSV (Negative)
[2022-05-02 12:50] LABS: Troponin, Point-of-Care* 0.03 ng/ml (0.01-0.04)
--- OUTSIDE RECORDS SUMMARY | 2022-05-02 12:50 | XMS_ITS | Encounter Summary ---
:1970 Author Organization [facility] Address [address] [place] [address] Care Team Providers Name Role Phone Ab Patterson MD Primary Care Provider Reason for Referral Procedure/Equipment (Routine) - Closed Specialty Diagnoses / Procedures Referred By Contact Refer red To Contact Viji Dixon MD [address] [place], [place] [phone] Referral ID Status Reason Start Date Expiration Date Visits Requ ested Visits Authorized [id number] Closed 04/11/2016 07/11/2017 1 1 Scheduling Instructions Your provider has recommended an appoint ment for a screening colonoscopy with [facility] . You may call the [facility] Center at [phone] to schedule your colonoscopy. Screening colonoscopies are performed at [facility] in [place], as well as at [facility]. We suggest you call your health insurance company a bout your coverage and benefits for this appointment. Reason for Visit Reason Comments ROUTINE HEALTH MAINTENANCE PAP,ROUTINE Hormone questions/concerns LMP 2012 Encounter Details Date Type Department Care Team Description 04/11/2016 Office Visit [place] Viji Dixon Well woman exam with routine gynecological exam (Primary Dx); Obstetrics and A, MD Breast cancer screening; Gynecology Physician s [address] Colon cancer screening; [address] Lipid screening; [place], [place] [address] [place], [place] Screening for diabetes imelda tus; [phone] Thyroid disorder screen; [phone] Menopausal symp toms; (Work) Pap smear for cervical cancer screening; Essential hypertension; Obesity, morbid , BMI 40.0-49.9 ([facility]) Social History Tobacco Use Types Packs/Day Years [...] can you learn more? 1. Go to [employer] or [email or web address]. 2. Enter F700 in the search box. Current as of: September 07, 2015 Content Version: 109 ?? [id number] [employer]. documented in this encounter Progress Notes Viji Dixon MD - 04/11/2016 3:05 PM CDT [facility] Is Support Analyst Clinic CC: Routine health maintenance, annual exam HPI: Jennifer Mendez is a 46 y.o. old here for annual female health maintenance exam. - Patient recently diagnosed with myelofibrosis, treated through [facility] but planning consultation at [facility] in Apr. Has constant pain in RUQ [...] ??? Tonsil and adenoidectomy ??? Ear tubes Is Support Analyst Hx: Last Pap smear: ? unknown History [...] Medical Center gist Range Method Time Signature HPV RESULT Negative NEG [facility] Comments (NOTE) [facility] The Ramirez HPV Test is a qualitative in vitro test for the detection LABORATORIES of Human Papillomavirus in [facility] patient specimens. The t est utilizes amplification of target DNA by Polymerase Chain [place] ction (PCR) and nucleic acid hybridization for the detection of 14 high-risk (HR) HPV types. The assay tests for high risk type s 16, 18, 31, 33, 35, 39, 45, 51, 52, 56, 58, 59, 66 and 68. Testing performed at: This test was developed and its performance characteristics determined by [facility]. ??It has not been cleared or [...] PM 6 2:11 CDT PM CDT Narrative [facility] - 04/17/2016 6:37 AM C DT Performed at [facility] , [address] [place] [address] Viji Dixon MD LAB_1 Performing Organization Address City/State/ZIP Code Phon e Number [facility] [phone] Pap Test, Routine (04/11/2016 2:10 PM CDT) Component Value Ref Test Analysis Performed At [facility] Range Method Time Signature Cytology, (NOTE) [facility] Pap Bolting Machine Operator Cytology Report LABORATORI ES Patient Name: JENNIFER [...] ?? Microscopic Description Microscopic examination is performed. [facility] Department of Pathology [address] [place] [address] ??[id number] Specimen Anatomical Collection Method Collection Time Receive d Time (Source) Location / / Volume Laterality 04/11/2016 2:10 PM 6 7:17 CDT AM CDT Viji Dixon MD LAB_1 Performing Organization Address City/State/ZIP Code Phon e Number [facility] [phone] documented in this encounter Visit Diagnoses Diagnosis [...] ([facility]C) documented in this encounter Care Teams Hot Braider Relationship Specialty Start Date End Date Ab Patterson MD PCP - General Family Practice 11/30/15 [address] [place] [address] documented as of this encounter
--- OUTSIDE RECORDS SUMMARY | 2022-05-02 12:50 | XMS_ITS | Encounter Summary ---
:1970 Author Organization [facility] Address [address] [place] [address] Care Team Providers Name Role Phone Unassigned, Provider Primary Care Provider Unavailable Reason for Visit Reason Comments Other Encounter Details Date Type Department Care Team Description 01/20/2007 Telephone [facility] 3900 Kurt Day DPM Other Podiatric MedSurg [address] [place] [address] [place], [place] [id number] [phone] Social History Tobacco Use Types Packs/Day Years Used Date Smoking Tobacco: Never Assessed Sex Assigned at Date Recorded Not on file documented as of this encounter [facility], Message - 01/20/2007 9:16 AM CDT Phone Note filed by Lien Enforcement at 10/31/102015 Author: Lien Enforcement Service: (none) Author Type: (none) Filed: 10/31/102015 Note Time: 01/20/07915 Status: Signed Optical Glass Silverer: [facility] Non -Symptom Message from Front Line Caller Name/Relationship:Jennifer Primary Doll Wig Maker:Shay Message:pt missed work on Friday01/18/07 due to problems with feet, pt is calling for a note for this. Please call pt will parts picker note when ready. Critical Care Specialist:Jennifer Best call back number:[phone] Best time to call back:anytime Is it OK to leave a confidential message on this voicemail? yes *ECODE~PNMSG2 Created on 20Jan2007 9:16am by SHARON GRAY Acknowledged by KURT DAY on 4:40pm S ASSISTANTS AND SALESPERSONS documented in this encounter Plan of Treatment Not on filedocumented as of this encounter Visit Diagnoses Not on filedocumented in this encounter Care Teams Barge Captain Relationship Specialty Start Date End Date Unassigned, Provider PCP - General 09/20/00 11/29/[address] [place] [address] documented as of this encounter
--- OUTSIDE RECORDS SUMMARY | 2022-05-02 12:50 | XMS_ITS | Encounter Summary ---
:1970 Author Organization [facility] Address [address] [place] [address] Care Team Providers Name Role Phone Unassigned, Provider Primary Care Provider Unavailable Encounter Details Date Type Department Care Team Description 01/22/2006 PN Conversion Only [facility] [address] [place] [address] Social History Tobacco Use Types Packs/Day Years Used Date Smoking Tobacco: Never Assessed Sex Assigned at Date Recorded Not on file documented as of this encounter Plan of Treatment Not on filedocumented as of this encounter Visit Diagnoses Not on filedocumented in this encounter Care Teams Stratigrapher Relationship Specialty Start Date End Date Unassigned, Provider PCP - General 09/20/00 11/29/15 [address] [place] [address] documented as of this encounter
--- OUTSIDE RECORDS SUMMARY | 2022-05-02 12:50 | XMS_ITS | Encounter Summary ---
:1970 [facility] Address [address] [place] [address] Care Team Providers Name Role Phone Ab Patterson MD Primary Care Provider Reason for Referral Consult/Transfer Care (Routine) - Closed Specialty Diagnoses / Procedures Referred By Contact Refer red To Contact Optometry Diagnoses Decreased visual acuity Ab Patterson MD Bl [facility] [address] [facility] [address] [place], [place] [address] [place] [address] Fax: Referral ID Status Reason Start Date Expiration Date Visits Requ ested Visits Authorized [id number] Closed 12/01/2015 03/01/2017 1 1 Scheduling Instructions Your provider has recommended an appoint ment with [facility] Ophthalmology. You may call [phone] to schedule your a ppointment. If you prefer, a odd job worker will contact you within the next 3 business d ays to assist you in setting up this appointment. Consult/Transfer Care (Routine) - Closed Specialty Diagnoses / Procedures Referred By Contact Refer red To Contact Diagnoses [place] [address] [place], [place] [address] Referral ID Status Reason Start Date Expiration Date Visits Requ ested Visits Authorized [id number] Closed 12/01/2015 03/01/2017 1 1 Scheduling Instructions If an appointment with [facility] access hospital Fo ot and Ankle Surgery was advised and you have not been contacted to schedule that appo intment within 3 business days, please call [phone] for assistance. Reason for Visit Reason Comments Establish Care Encounter Details Date Type Department Care Team Description 12/01/2015 Office Visit Toyin Medley Ab Patterson Myelofib rosis (HRC) (Primary Dx); Lorne Worley MD Medication side effects, initial encount er; [address] [facility] [address] Plantar fasciitis; [place], [place] Decreas ed visual acuity [id number] [phone] Social History Tobacco Use Types Packs/Day Years Used Date Smoking Tobacco: Never Assessed Sex Assigned at Date Recorded Not on file documented as of this encounter Last Filed Vital Signs Vital Sign Reading Time Taken Comments Blood Pressure 136/80 12/01/2015 8:47 AM CDT Pulse 64 12/01/2015 8:47 AM CDT Temperature 36.6 ??C (97.8 ??F) 12/01/2015 8:44 AM CDT Respiratory Rate - - Oxygen Saturation - - Inhaled Oxygen Concentration - - Weight 127 kg (280 lb) 12/01/2015 8:44 AM CDT Height 172.7 cm (5' 8) 12/01/2015 8:44 AM CDT Body Mass Index 42.57 12/01/2015 8:44 AM CDT documented in this encounter Patient Instructions Patient InstructionsAb Patterson MD - 12/01/2015 9:[address]T Talk to Dr Delgadillo about your symptoms since starting morphine to see whether he may want to be more gradual about increase dose or possibly change med. Follow up 2 weeks for recheck. documented in this encounter Progress Notes Ab Patterson MD - 12/01/2015 6:09 PM CDT Subjective: Jennifer Dobbs is a 45 y.o. old female is in today for [facility]. She was diagnosed 3 months ago with myelofibrosis when she presented to ER with left flank pain and found to have enlarged speen. Also has anemia and persistent pain in feet as well as generallized aching. Has been taking Jakafi 20mgbid for the last few weeks. She has been tolerating this. Has been using oxycodone for pain several times/day. 4 days ago started mscontin 15mg bid. She started having headache and neck pain after starting this med and found to have elevated BP 2 days ago. Yesterday and today she seems to be having less pressure in her head. 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 Dr Hu from [place] [facility] is managing the myelofibrosis and Dr Delgadillo of [facility] is managing her pain med. Typically her blood pressure tends to run low She complains of decreased visual acuity coming on over several months. Past history reviewed Problems reviewed Medications reviewed No Known Allergies Objective: Appears well in no distress, alert and oriented. Blood pressure 136/80, pulse 64, temperature 97.8 ??F (36.6 ??C), temperature source Tympanic, height 5' 8 (1.727 m), weight 280 lb (127.007 kg). CN 2-12 normal, visual patton by confrontation normal. Coordination normal No lateralizing deficits Neck soft Normal gate Chest clear HS normal with no murmurs. Feet: no calf tenderness. Feet appear normal but there is tenderness of ankles and sole of foot at insertion of plantar fascia, especially left foot ASSESSMENT/PLAN: ICD-10-CM 1. Myelofibrosis (HRC) D75.81 2. Medication side effects, initial encounter T88.7XXA 3. Plantar fasciitis M72.2 FOOT & ANKLE/PODIATRY CONSULT-ADULT/PEDS 4. Decreased visual acuity H54.7 OPHTHALMOLOGY CONSULT-ADULT/PEDS She is to follow up with Dr Delgadillo regarding her symptoms of head pressure and elevated BP since starting morphine. Possibly she needs more time to adjust to this before increasing dose or another medication needs to be used. Follow up in 2 weeks. Ab Patterson MD 12/01/2015, 6:09 PM documented in this encounter Plan of Treatment Scheduled Referrals Name Type Priority Associated Diagnoses Order S chedule FOOT & ANKLE/PODIATRY Referral Routine Plantar fasciitis O rdered: 12/01/2015 CONSULT-ADULT/PEDS OPHTHALMOLOGY Referral Routine Decreased visual Ordered: 0 12/01/2015 CONSULT-ADULT/PEDS acuity documented as of this encounter Visit Diagnoses Diagnosis Myelofibrosis (HRC) - Primary Myelofibrosis Medication side effects, initial encount er Plantar fasciitis Plantar fascial fibromatosis Decreased visual acuity Unspecified visual loss documented in this encounter Care Teams Egg And Spice Mixer Relationship Specialty Start Date End Date Ab Patterson MD PCP - General Family Practice 11/30/15 [address] [place] [address] documented as of this encounter
--- OUTSIDE RECORDS SUMMARY | 2022-05-02 12:50 | XMS_ITS | Encounter Summary ---
:1970 Author Organization [facility] Address [address] [place] [address] Care Team Providers Name Role Phone Ab Patterson MD Primary Care Provider Encounter Details Date Type Department Care Team Description 12/13/2015 [facility] External to [place], [facility] HEMOGLOBIN Provider CONCERNS Social History Tobacco Use Types Packs/Day Years Used Date Smoking Tobacco: Never Assessed Sex Assigned at Date Recorded Not on file documented as of this encounter Plan of Treatment Not on filedocumented as of this encounter Visit Diagnoses Not on filedocumented in this encounter Care Teams Proposal Lead Writer Relationship Specialty Start Date End Date Ab Patterson MD PCP - General Family Practice 11/30/15 [address] [place] [address] documented as of this encounter
--- OUTSIDE RECORDS SUMMARY | 2022-05-02 12:50 | XMS_ITS | Encounter Summary ---
:1970 Author Organization [facility] Address [address] [place] [address] Care Team Providers Name Role Phone Unassigned, Provider Primary Care Provider Unavailable Reason for Visit Reason Comments Other Encounter Details Date Type Department Care Team Description 01/19/2007 Telephone CONV Kurt Schrader, DPSantana Other [address] [facility] [address] [place] [address] [place], [place] [address] (Wo rk) Social History Tobacco Use Types Packs/Day Years Used Date Smoking Tobacco: Never Assessed Sex Assigned at Date Recorded Not on file documented as of this encounter Progress Notes [facility], Message - 01/19/2007 9:17 AM CDT Phone Note filed by TapFame at 10/30/10 3939 Author: [employer] Service: (none) Author Type: (none) Filed: 10/30/10 5675 Note Time: 01/19/0717 Status: Signed Intermediate Card Tender: Message Center Non -Symptom Message from Front Line Caller Name/Relationship:Jennifer Primary Speedboat Operator:Kurt Day Message:Doctor told me to come into [facility] today and his printing assistant would wrap my foot. I can not come in today but I can come in tomorrow .I don't have the persons name Perinatal Instructor:Jennifer Best call back number:[phone] cell Best time to call back:anytime Is it OK to leave a confidential message on this voicemail?yes *ECODE~PNMSG2 Created on 19Jan2007 9:17am by TRISTIAN MEHTA R On 19Jan2007 9:29am BEL CHADWICK wrote: Left message for pt that illuminator is not here in clinic tomorrow (Friday ). Pt could come back on if she would like or see Dr. Day in [place]. Pt will call back with questions. Acknowledged by KURT DAY on 6:46am SCHOOL COACH documented in this encounter Plan of Treatment Not on filedocumented as of this encounter Visit Diagnoses Not on filedocumented in this encounter Care Teams Java Tech Lead Relationship Specialty Start Date End Date Unassigned, Provider PCP - General 09/20/00 11/29/[address] [place] [address] documented as of this encounter
--- OUTSIDE RECORDS SUMMARY | 2022-05-02 12:50 | XMS_ITS | Encounter Summary ---
:1970 Author Organization [facility] Address [address] [place] [address] Care Team Providers Name Role Phone Unassigned, Provider Primary Care Provider Unavailable Encounter Details Date Type Department Care Team Description 11/13/2010 PN Conversion Only CONVERSION CONVERSION Pnc, , [place] [address] Social History Tobacco Use Types Packs/Day Years Used Date Smoking Tobacco: Never Assessed Sex Assigned at Date Recorded Not on file documented as of this encounter Plan of Treatment Not on filedocumented as of this encounter Visit Diagnoses Not on filedocumented in this encounter Care Teams Premium Representative Relationship Specialty Start Date End Date Unassigned, Provider PCP - General 09/20/00 11/29/15 [address] [place] [address] documented as of this encounter
--- OUTSIDE RECORDS SUMMARY | 2022-05-02 12:50 | XMS_ITS | Encounter Summary ---
:1970 Author Organization [facility] Address [address] [place] [address] Care Team Providers Name Role Phone Ab [...] on filedocumented in this encounter Care Teams Administrative Representative Relationship Specialty Start Date End Date Ab Patterson MD PCP - General Family Practice 11/30/15 [address] [place] [address] documented as of this encounter
--- OUTSIDE RECORDS SUMMARY | 2022-05-02 12:50 | XMS_ITS | Encounter Summary ---
:1970 Author Organization [facility] Address [address] [place] [address] Care Team Providers Name Role Phone Unassigned, Provider Primary Care Provider Unavailable Encounter Details Date Type Department Care Team Description 01/01/2007 [facility] Kathy Christensen I, PAPER PATTERN FOLDER, [address] [place] [address] [place], [place] [address] (Wo rk) Social History Tobacco Use Types Packs/Day Years Used Date Smoking Tobacco: Never Assessed Sex Assigned at Date Recorded Not on file documented as of this encounter Progress Notes Kathy Christensen I - 01/01/2007 12:01 AM CDT Progress Notes signed by at 01/01/07 1122 Author: DOMINIK Casas Service: (none) Author Type: (none) Filed: 11/02/102005 Note Time: 01/01/07 0001 Status: Signed Presser And Shaper Knitted Goods: Aurelia Conde Acute Clinic Visit IMPRESSION: Foot [...] discharged in stable condition. Follow up with Area Loss Prevention Manager. RTC as needed, worsening pain, progressive weakness, or other neurological deficits. TT: [address]: 15 mins *SH~PC~LBP ~Shorthand Note completed on: 01/01/2007 4:28 PM TICS NURSE documented in this encounter Plan of Treatment Not on filedocumented as of this encounter Visit Diagnoses Not on filedocumented in this encounter Care Teams Barbering Teacher Relationship Specialty Start Date End Date Unassigned, Provider PCP - General 09/20/00 11/29/[address] [place] [address] documented as of this encounter
--- OUTSIDE RECORDS SUMMARY | 2022-05-02 12:50 | XMS_ITS | Encounter Summary ---
:1970 Author Organization [facility] Address [address] [place] [address] Care Team Providers Name Role Phone Ab Patterson MD Primary Care Provider Encounter Details Date Type Department Care Team Description 12/13/2015 [facility], Provider DIS CHARGE SUMMARY Social History Tobacco Use Types Packs/Day Years Used Date Smoking Tobacco: Never Assessed Sex Assigned at Date Recorded Not on file documented as of this encounter Plan of Treatment Not on filedocumented as of this encounter Visit Diagnoses Not on filedocumented in this encounter Care Teams Senior Sharepoint Developer Relationship Specialty Start Date End Date Ab Patterson MD PCP - General Family Practice 11/30/15 [address] [place] [address] documented as of this encounter
--- OUTSIDE RECORDS SUMMARY | 2022-05-02 12:50 | XMS_ITS | Encounter Summary ---
:1970 Author Organization [facility] [employer] Address [address] [place] [address] Care Team Providers Name Role Phone Ab Patterson MD Primary Care Provider Reason for Visit Reason Comments External Hospital Follow-up blood transfusion Encounter Details Date Type Department Care Team Description 12/28/2015 Telephone [facility] Ab Patterson [facility] MD Meir Follow-up (blood [address] [address] [address] [facility] transfusion) [place], [place] [address] [place], [place] [phone] [address] (Wo rk) Social History Tobacco Use Types [...] on filedocumented in this encounter Care Teams Advanced Seal Delivery System Relationship Specialty Start Date End Date Ab Patterson MD PCP - General Family Practice 11/30/15 [address] [place], [place] [id number] documented as of this encounter
--- OUTSIDE RECORDS SUMMARY | 2022-05-02 12:50 | XMS_ITS | Clinical Summary ---
:1970 Author Organization [facility] Address [address] [place] [address] Care Team Providers Name Role Phone Ab Patterson MD Primary Care Provider Source Comments You are receiving this document as you are listed as the primary care provider,follow-up provider, or the patient has been referred to you for consultation.This is in compliance with the Medicare and Medicaid EHR Incentive Program,which states Providers who transition their patient to another setting of careor provider of care or refers their patient to another provider of care shouldprovide summarycare record for each transition of care or referral. [facility] Allergies Active Allergy Reactions Severity Noted Date Comments Latex 10/15/2010 PN: Converted f rom LW Latex Sensitivity Flag Medications Medication Sig Dispensed Refills Start Date End Date Status HYDROcodone-acetaminop Take 1-2 tablets 15 0 01/01/2007 Active hen (VICODIN) 5-500 MG by mouth every 4 tablet hours as needed. LW Addl Instr:Maximum of 8 tablets/24 hours. Additional Information Patient not taking. Reported on 04/11/2016 MORPHINE SULFATE OR 15 mg. 0 Active oxyCODONE (AKA ROXICODONE) 5 MG Take 5 mg by mouth every 4 hours 0 Active immediate release tablet as needed for Pain. sennosides-docusate sodium Take 1 Tab by mouth daily. 0 Active (SENNA-DOCUSATE) 8.6-50 MG tablet Multiple Vitamin (MULTIVITAMINS OR) 0 Active LORazepam (ATIVAN) 0.5 MG tablet Take 0.5 mg by mouth every 6 0 Active hours as needed for Anxiety. Active Problems Problem Noted Date Cervical cancer screening 04/16/2016 Overview: From visit on 04/11/16: History of abnorm al pap tests? yes, age 23?, colposcopy but no treatment required 2015 NILM, HPV negative 46 y.o. Plan: Cotest 03/2021 ; Pap test history Obesity, morbid, BMI 40.0-49.9 04/11/2016 Hypertension 04/11/2016 Myelofibrosis 12/01/2015 Overview: Diagnosed by Dr Hu in September 2015 and t reated with Jakafi 20mg bid Pain in bones and spleen managed by Dr Cain neff of [place] [facility] Plantar fasciitis 12/01/2015 Immunizations Name Administration Dates Next Due Td 08/23/1998 Family History Medical History Relation Name Comments Heart Disease Father Hypertension Father Cancer, Colon Mother Relation Name Status Comments Father Mother Social History Tobacco Use Types Packs/Day Years Used Date Smoking Tobacco: Never Assessed Sex Assigned at Date Recorded Not on file Last Filed Vital Signs Vital Sign Reading Time Taken Comments Blood Pressure 150/102 04/11/2016 1:26 PM CDT Pulse 78 04/11/2016 1:26 PM CDT Temperature 36.6 ??C (97.8 ??F) 12/01/2015 8:44 AM CDT Respiratory Rate - - Oxygen Saturation - - Inhaled Oxygen Concentration - - Weight 122.5 kg (270 lb) 04/11/2016 1:26 PM CDT Height 169.5 cm (5' 6.75) 04/11/2016 1:26 PM CDT Body Mass Index 42.61 04/11/2016 1:26 PM CDT Plan of Treatment Health Maintenance Due Date Last Done Comments Colon Cancer Screening Plan 1970 Due Hep C Screening (Preventive 1970 Services) HepB (1) 1970 Mammogram 1970 COVID-19 Vaccine (#1) 1970 DTaP/Tdap/Td (1 - Tdap) 08/24/1998 08/23/1998 Cholesterol 2013 02/22/1998 Adult Preventive Visit 04/11/2017 04/11/2016, 01/22/1999 Zoster/Shingles (1 of 2) 2018 Pap 04/11/2021 04/11/2016, 01/22/1999 Influenza (#1) 2022 HIV Screening (Preventive Completed 02/22/1998 Services) HepA Aged Out No longer eligib le based on patient's age to complete this to pic Hib Aged Out No longer eligib le based on patient's age to complete this to pic IPV (Polio) Aged Out No longer eligib le based on patient's age to complete this to pic MCV4 Aged Out No longer eligib le based on patient's age to complete this to pic Pneumococcal Aged Out No longer eligib le based on patient's age to complete this to pic Insurance Payer Benefit Plan / Subscriber ID Effective Dates Phone Addre ss Type [facility] [id number] 2015-Present Commercial INSURED eJnnifer Dobbs Personal/Family Self 1970 [address] (Home) [address] [facility] [phone] [place] (Work) [id number] Jennifer Dobbs Personal/Family Self 1970 [address] [facility] [phone] [place] [place] (Work) [id number] Care Teams Salesforce Specialist Relationship Specialty Start Date End Date Ab Patterson MD PCP - General Family Practice 11/30/15 [address] [place] [address]
--- OUTSIDE RECORDS SUMMARY | 2022-05-02 12:50 | XMS_ITS | Encounter Summary ---
:1970 Author Organization [facility] Address [address] [place] [address] Care Team Providers Name Role Phone Unassigned, Provider Primary Care Provider Unavailable Encounter Details Date Type Department Care Team Description 01/01/2007 Office Visit CONV Kurt Schrader DPM [address] [address] [place], [place] [address] (Wo rk) Social History Tobacco Use Types [...] 11/02/102006 Note Time: 01/01/07 0001 Status: Signed Form Worker: Kurt Day DPM (Physician) NAME: JENNIFER MENDEZ MR#: [id number] ACCT: [id number] VISIT: [id number] DICTATING CLINICIAN: Kurt Day DPM JOB: [id number] LOC: 1239 CLINIC PROGRESS NOTE DATE OF [...] or loss of function. MEDICATIONS: Reviewed in [employer] health profile. ADR/ALLERGIES: REVIEWED IN [employer] HEALTH PROFILE. PAST MEDICAL HISTORY: Reviewed in [employer] health profile. SOCIAL HISTORY: Non-smoker. OBJECTIVE: A [...] if any problems or concerns should arise. [facility]:[id number] C: 01/07/07 12:49 DOCUMENT: [id number] documented in this encounter Plan of Treatment Not on filedocumented as of this encounter Visit Diagnoses Not on filedocumented in this encounter Care Teams Burial Needs Salesperson Relationship Specialty Start Date End Date Unassigned, Provider PCP - General 09/20/00 11/29/[address] [place] [address] documented as of this encounter
--- OUTSIDE RECORDS SUMMARY | 2022-05-02 12:50 | XMS_ITS | Encounter Summary ---
:1970 Author Organization [facility] Address [address] [place] [address] Care Team Providers Name Role Phone Ab Pattesron MD Primary Care Provider Encounter Details Date Type Department Care Team Description 05/10/2016 Scanned History External to Transferred Record, Pro vider [facility] Social History Tobacco Use Types Packs/Day Years Used Date Smoking Tobacco: Never Assessed Sex Assigned at Date Recorded Not on file documented as of this encounter Plan of Treatment Not on filedocumented as of this encounter Visit Diagnoses Not on filedocumented in this encounter Care Teams Copper Roller Handler Printing Relationship Specialty Start Date End Date Ab Patterson MD PCP - General Family Practice 11/30/15 [address] [place] [address] documented as of this encounter
--- OUTSIDE RECORDS SUMMARY | 2022-05-02 12:50 | XMS_ITS | Encounter Summary ---
:1970 Author Organization [facility] Address [address] [place] [address] Care Team Providers Name Role Phone Unassigned, Provider Primary Care Provider Unavailable Reason for Visit Reason Comments Other Encounter Details Date Type Department Care Team Description 01/31/2006 Telephone [facility] 1515 Obstet rics[facility]Gynecology Center, Message Other 15[address] [facility] [address] Social History Tobacco Use Types Packs/Day Years Used Date Smoking Tobacco: Never Assessed Sex Assigned at Date Recorded Not on file documented as of this encounter [facility], Message - 01/31/2006 9:19 AM CDT Phone Note filed by [employer] at 10/30/10637 Author: [employer] Service: (none) Author Type: (none) Filed: 10/30/10637 Note Time: 01/31/06918 Status: Signed Baster Hand: [employer] MESSAGE TO CARE TEAM NAME OF CALLER:reynaldo NAME OF CLINICIAN:lata MESSAGE:Pt calling back returning nurse call regarding US results. Please call pt back to discuss. PHARMACY NAME: PHARMACY PHONE #: CALL BACK PHONE #:[phone] BEST TIME TO CALL BACK:after 230pm Is it OK to leave detailed message on voicemail?yes Created on 31Jan2006 9:19am by DENISE WEISS On 03Feb2006 11:23am BRANDON HOLLEY wrote: lm at contact number above with results, U/S normal per Dr. Sharp, simple cyst right ovary. OMER COMPLAINT SERVICE SUPERVISOR documented in this encounter Plan of Treatment Not on filedocumented as of this encounter Visit Diagnoses Not on filedocumented in this encounter Care Teams Elevating Grader Operator Relationship Specialty Start Date End Date Unassigned, Provider PCP - General 09/20/00 11/29/[address] [place] [phone] documented as of this encounter
--- OUTSIDE RECORDS SUMMARY | 2022-05-02 12:50 | XMS_ITS | Encounter Summary ---
:1970 Author Organization [facility] Address [address] [place] [address] Care Team Providers Name Role Phone Ab [...] on filedocumented in this encounter Care Teams Medical Records Auditor Relationship Specialty Start Date End Date Ab Patterson MD PCP - General Family Practice 11/30/15 [address] [place] [address] documented as of this encounter
[2022-05-02 12:51] LABS: SARS PCR* Negative SARS-CoV-2 (Negative)
--- OUTSIDE RECORDS SUMMARY | 2022-05-02 12:51 | XMS_ITS | Encounter Summary ---
:1970 Author Organization [facility] Address [address] [place] [address] Care Team Providers Name Role Phone Unassigned, Provider Primary Care Provider Unavailable Encounter Details Date Type Department Care Team Description 07/14/1989 PN Conversion Only PUBLICATIONS INSPECTOR [address] [place] [address] Social History Tobacco Use Types Packs/Day Years Used Date Smoking Tobacco: Never Assessed Sex Assigned at Date Recorded Not on file documented as of this encounter Plan of Treatment Not on filedocumented as of this encounter Visit Diagnoses Not on filedocumented in this encounter Care Teams Value Stream Coach Relationship Specialty Start Date End Date Unassigned, Provider PCP - General 09/20/00 11/29/15 [address] [place] [address] documented as of this encounter
--- OUTSIDE RECORDS SUMMARY | 2022-05-02 12:51 | XMS_ITS | Encounter Summary ---
:1970 Author Organization [facility] Address [address] [place] [address] Care Team Providers Name Role Phone Unavailable Primary Care Provider Unavailable Encounter Details Date Type Department Care Team Description 02/22/1998 Orders Only Radha Tovar APRN, CNP [facility] [address] [place] [id number] Social History Tobacco Use Types Packs/Day Years [...] HIV 1/2 ANTIBODY (02/22/1998 11:50 AM CDT) [facility] gist Method Time Signature HIV 1/2 Non-Reacti [facility] Antibody ve Specimen Anatomical Collection Method Collection Time Receive d Time (Source) Location / / Volume Laterality 02/22/1998 11:50 02/22/1998 AM CDT 11:51 AM CDT Radha Tovar APRN, CNP LAB_1 Performing Organization Address City/State/ZIP Code Phon e Number [facility] [phone] [facility] [address] [address] CHOLESTEROL, TOTAL AND HDL (02/22/1998 11:50 AM CDT) P athologist Signature Cholesterol 160 <200 mg/dl [facility] HDL 43 >35 mg/dl [facility] Specimen Anatomical Collection Method Collection Time Receive d Time (Source) Location / / Volume Laterality 02/22/1998 11:50 02/22/1998 AM CDT 11:51 AM CDT Radha Tovar VALDEMAR DELGADO LAB_1 Performing Organization Address [facility] Phon e Number [employer] [phone] [facility] [address] [address] (ABNORMAL) CBC HEME PANEL (02/22/1998 [...] Tovar APRN, CNP LAB_1 Performing Organization Address [facility] Phon e Number [employer] [phone] [facility] [address] [place] [address] documented in this encounter Visit Diagnoses Not on filedocumented in this encounter
--- OUTSIDE RECORDS SUMMARY | 2022-05-02 12:51 | XMS_ITS | Encounter Summary ---
:1970 Author Organization [facility] Address [address] [place] [address] Care Team Providers Name Role Phone Unavailable Primary Care Provider Unavailable Reason for Visit Reason Comments PAP,ABNORMAL VIA INTERFACE Encounter Details Date Type Department Care Team Description 01/22/1999 Office Visit [place] Radha Tovar, GYNECOL OGIC EXAMINATION; Obstetrics and BASIC SCIENCES DEAN, IRONING PLEATER SCREENING FOR INFEC DIS NOS; Gynecology [facility] ABNORMAL PAP SMEAR-CERVIX; [facility] TOBACCO USE DISORDER; [address] [place] [address] PRESCRIP-OR AL CONTRACEPT; NE COUNSELING, HEALTH; 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 Age 28, para [...] to quitting, and what is available through [employer]. Jennifer had her first Pap smear at [...] He is now . Maternal grandmother fatal [place]. O: Height 5 feet 6-1/2. Weight 214-1/2. [...] Adnexae are without masses or tenderness. 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 Past abnormal Pap [...]
--- OUTSIDE RECORDS SUMMARY | 2022-05-02 12:51 | XMS_ITS | Encounter Summary ---
:1970 Author Organization [facility] Address [address] [place] [address] Care Team Providers Name Role Phone Unavailable Primary Care Provider Unavailable Encounter Details Date Type Department Care Team Description 03/08/1998 Office Visit Radha Tovar APRN, SHIPPING AND RECEIVING SPECIALIST [facility] [address] [place] [address] [phone] Social History Tobacco Use Types Packs/Day Years Used Date Smoking Tobacco: Never Assessed Sex Assigned at Date Recorded Not on file documented as of this encounter Progress Notes Radha Tovar - 03/08/1998 12:00 AM CDTS: The patient presents today for test results. Age 27. Para 0-0-0-0. Allergies: None. Medications: None. 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
--- OUTSIDE RECORDS SUMMARY | 2022-05-02 12:51 | XMS_ITS | Encounter Summary ---
:1970 Author Organization [facility] Address [address] [place] [address] Care Team Providers Name Role Phone Unavailable Primary Care Provider Unavailable Encounter Details Date Type Department Care Team Description 01/22/1999 Orders Only Radha Tovar APRN, CNP [facility] [address] [place] [phone] Social History Tobacco Use Types Packs/Day Years [...] - 1 SWAB (01/22/1999 3:37 PM CDT) [facility] Method Time Signature GC (N. Negative [facility] gonorrhoeae) Source Cervix [facility] Specimen Anatomical Collection Method Collection Time Receive d Time (Source) Location / / Volume Laterality 01/22/1999 3:37 PM 9 3:38 CDT PM CDT Radha Tovar APRN, CNP LAB_1 Performing Organization Address City/State/ZIP Code Phon e Number [facility] [phone] [place] [id number] [address] CHLAMYDIA - 1 SWAB (01/22/1999 3:37 PM CDT) [facility] Method Time Signature Chlamydia Negative NEG [facility] Test Performed by PCR Assay Source Cervix [facility] Specimen Anatomical Collection Method Collection Time Receive d Time (Source) Location / / Volume Laterality 01/22/1999 3:37 PM 9 3:38 CDT PM CDT Radha Tovar APRN, CNP LAB_1 Performing Organization Address City/State/ZIP Code Phon e Number [facility] [phone] [address] documented in this encounter Visit Diagnoses Not on filedocumented in this encounter
--- OUTSIDE RECORDS SUMMARY | 2022-05-02 12:51 | XMS_ITS | Encounter Summary ---
:1970 Author Organization [facility] Address [address] [place] [address] Care Team Providers Name Role Phone Unavailable Primary Care Provider Unavailable Encounter Details Date Type Department Care Team Description 04/24/1998 Office Visit Floyd Johnston MD Social History Tobacco Use Types Packs/Day Years Used Date Smoking Tobacco: Never Assessed Sex Assigned at Date Recorded Not on file documented as of this encounter Progress Notes Floyd Johnston - 04/24/1998 12:00 AM CDTTAPE NO. [id number] REFERRING PROVIDER: Floyd Johnston M.D. - [facility] INDICATION FOR PELVIC ULTRASOUND: 1. Patient has [...] back to my care, Dr. Johnston, at [facility] for further management. cc: Floyd Johnston MD documented in this encounter Plan of Treatment Not on filedocumented as of this encounter Visit Diagnoses Not on filedocumented in this encounter
--- OUTSIDE RECORDS SUMMARY | 2022-05-02 12:51 | XMS_ITS | Encounter Summary ---
:1970 Author Organization [facility] Address [address] [place] [address] Care Team Providers Name Role Phone Unavailable Primary Care Provider Unavailable Encounter Details Date Type Department Care Team Description 02/22/1998 Office Visit Radha Tovar APRN, CLEAN RICE GRADER AND REEL TENDER [facility] [address] [place] [address] Social History Tobacco Use Types Packs/Day Years Used Date Smoking Tobacco: Never Assessed Sex Assigned at Date Recorded Not on file documented as of this encounter Progress Notes Radha Tovar - 02/22/1998 12:00 AM CDTS: 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 Age 27. Para 0-0-0-0. Contraception abstinence. LMP 01/30/98. Allergies: None. Medications: None. The patient shares with me that she has not seen a doctor in many years. She's had only one previous Pap smear. She felt it was normal. This was done when she was 16 years of age in a clinic in [place]. Since that time, she has not been [...] about this and what is available through [employer]. She did quit smoking several weeks ago and feels very happy about this and plans to stay away from it. She is not sexually active at this time. 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 Rectovaginal exam confirms. A: 1. 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 2. Begin control pills. [...]
--- OUTSIDE RECORDS SUMMARY | 2022-05-02 12:51 | XMS_ITS | Encounter Summary ---
:1970 Author Organization [facility] Address [address] [place] [address] Care Team Providers Name Role Phone Unavailable [...] not to have the LEEP done today. ODUCTIVE SURGEON documented in this encounter Plan of Treatment Not on filedocumented as of this encounter Visit Diagnoses Not on filedocumented in this encounter
--- OUTSIDE RECORDS SUMMARY | 2022-05-02 12:51 | XMS_ITS | Encounter Summary ---
:1970 Author Organization [facility] Address [address] [place] [address] Care Team Providers Name Role Phone Unavailable Primary Care Provider Unavailable Encounter Details Date Type Department Care Team Description 04/11/1998 Office Visit Floyd Johnston MD Social History Tobacco Use Types Packs/Day Years Used Date Smoking Tobacco: Never Assessed Sex Assigned at Date Recorded Not on file documented as of this encounter Progress Notes Floyd Johnston - 04/11/1998 12:00 AM CDTS: Rubsrm-dzst-cuu white female G0000, last menstrual period 03/14/98, [...]
--- OUTSIDE RECORDS SUMMARY | 2022-05-02 12:51 | XMS_ITS | Encounter Summary ---
:1970 Author Organization Replaced by [facility] Address [address] [place] [address] Care Team Providers Name Role Phone Unavailable Primary Care Provider Unavailable Encounter Details Date Type Department Care Team Description 02/22/1998 Orders Only Radha Tovar APRN, CNP [facility] [address] [place] [address] [phone] Social History Tobacco Use Types Packs/Day Years [...] - 1 SWAB (02/22/1998 11:51 AM CDT) [facility] gist Method Time Signature GC (N. Negative [facility] gonorrhoeae) Source Cervix [facility] Specimen Anatomical Collection Method Collection Time Receive d Time (Source) Location / / Volume Laterality 02/22/1998 11:51 02/22/1998 AM CDT 11:52 AM CDT Radha Tovar APRN, CNP LAB_1 Performing Organization Address City/State/ZIP Code Phon e Number [facility] [phone] [facility] [address] [address] CHLAMYDIA - 1 SWAB (02/22/1998 11:51 AM CDT) athologist Signature Chlamydia Negative [facility] Source Cervix [facility] Specimen Anatomical Collection Method Collection Time Receive d Time (Source) Location / / Volume Laterality 02/22/1998 11:51 02/22/1998 AM CDT 11:52 AM CDT Radha Tovar APRN, CNP LAB_1 Performing Organization Address City/State/ZIP Code Phon e Number [facility] [phone] [facility] [address] [place] [phone] documented in this encounter Visit Diagnoses Not on filedocumented in this encounter
[2022-05-02 13:02] LABS: Albumin* 4.7 g/dL (3.3-5.0)
[2022-05-02 13:03] LABS: Chloride* 100 mmol/L (96-114); D Dimer Quantitative* 1.07 ug/ml (0.00-0.50); Potassium* 4.3 mmol/L (3.6-5.1); Sodium* 136 mmol/L (135-149)
[2022-05-02 13:05] LABS: Aspartate Amino Transferase* 39 U/L (12-35); Bilirubin Total* 0.5 mg/dL (0.1-1.5); Carbon Dioxide* 27 mmol/L (20-32); Creatinine* 0.7 mg/dL (0.5-1.5); Est. Creatinine Clearance* 92.68; Estimated Glomerular Filt Rate 103 ml/min
[2022-05-02 13:06] LABS: Alanine Aminotransferase* 44 U/L (4-35); Alkaline Phosphatase* 137 U/L (40-150); Blood Urea Nitrogen* 20 mg/dL (7-30); Calcium* 9.7 mg/dL (8.4-10.6); Glucose* 104 mg/dL (60-115); Lipase* 49 U/L (23-300); Total Protein* 7.4 g/dL (6.0-8.3)
[2022-05-02 13:14] LABS: NT Pro B Type NatriureticPept* 1940 PG/mL (0-125)
[2022-05-02 13:24] LABS: C Reactive Protein* 1.7 mg/dL (0.5-1.0)
[2022-05-02 13:29] LABS: Slide Review Reflex Yes
[2022-05-02 13:30] LABS: Hemoglobin* 7.7 gm/dL (12.0-16.0)
[2022-05-02 13:31] LABS: Slide Review Acceptable Review (Acceptable)
--- NOTE | 2022-05-02 13:35 | ED.NURSE ---
Critical hgb: 7.7 taken from lab
--- NOTE | 2022-05-02 14:13 | CRLHL7_ITS ---
For Patients: As a result of the Century Cures Act, medical imaging exams and procedure reports are released immediately into your electronic medical record. You may view this report before your referring provider. If you have questions, please contact your health care provider. INDICATION: Myelofibrosis, shortness of breath, elevated D-dimer. TECHNIQUE: CT chest PE was acquired with 95 mL Isovue 370 IV contrast. Coronal and sagittal reformats were generated. COMPARISON: None. FINDINGS: Pulmonary arteries: The quality of enhancement of the pulmonary arteries is adequate. No filling defects to suggest pulmonary emboli. No findings of pulmonary artery hypertension. Thyroid: Unremarkable. Thoracic lymph nodes: No enlarged supraclavicular, mediastinal, hilar, or axillary lymph nodes. Mediastinum and esophagus: Unremarkable. Heart and vasculature: Unremarkable. Lungs: Unremarkable. Pleura: Unremarkable. Chest wall: Unremarkable. Upper abdomen: No acute or significant findings. Bones: Unremarkable for age. IMPRESSION: 1. No pulmonary embolism. 2. Clear lungs. Please note that all CT scans at this facility use dose modulation, iterative reconstruction, and/or weight-based dosing when appropriate to reduce radiation dose to as low as reasonably achievable. Dictated by Binh Cheek MD @ 05/02/2022 3:35:51 PM (Electronically Signed)
[2022-05-02] MEDS: LORazepam 2 MG/ML inj 1 MG IVP (14:26)
--- NOTE | 2022-05-02 14:40 | ED.NURSE ---
Per MD request, pt placed on 2L O2 NC while she went to CT scanner due to pt's anxiety about SOB while lying flat.
--- NOTE | 2022-05-02 15:11 | ED.NURSE ---
O2 DC'd upon return from CT.
--- NOTE | 2022-05-02 15:22 | ED.NURSE ---
While pt was in CT scanner, IV in L AC blew and was not patent. 2nd line had been started by Lisa NARAYAN. component lab tech notified telegraphic typewriter installer at this time that some contrast was put through the IV that had been in L AC. notified.
[2022-05-02 20:43] LABS: pH VBG 7.4 (7.32-7.43)
[2022-05-02 20:44] LABS: HCO3 VBG 28 mmol/L (21-28); PCO2 VBG 45 mmHG (40-50); PO2 VBG 39.2 mmHG (25-47)
== END 2022-05-02 16:41 | disposition home or self-care (01) ==
PROVIDERS: Emergency Provider Family Medicine; PCP Emergency Medicine
DX: F41.9 Anxiety disorder, unspecified (principal); R06.02 Shortness of breath
CPT/HCPCS: 36415; 71045; 71260; 80053; 82803; 83605; 83690; 83880; 85025; 85379; 86140; 87502; 87634; 87635; 93005; 94761; 96374; 99284; 99285; J2060; Q9967

== ENCOUNTER 2022-07-18 09:30 | Outpatient (RCR) | payer MEDICARE, MEDICAID, SELFPAY ==
[2022-02-11 09:16] LABS: Basophils Percent Auto 1.7 % (0.0-3.0); Eosinophils Percent Auto 0.7 % (0.0-7.0); Hematocrit 18.4 % (33.0-51.0); Immature Granulocytes Abs Auto 0.43 K/uL (0.00-0.30); Lymphocytes Percent Auto 15.8 % (20-44); Mean Corpuscular HGB Conc 30 gm/dL (32-36); Mean Corpuscular Hemoglobin 28 pg (26-34); Mean Corpuscular Volume 90 fL (80-100); Monocytes Percent Auto 6.3 % (0.0-11.0); Neutrophils Percent Auto 61.3 % (42.0-72.0); Platelet Count* 66 K/uL (140-440); RDW Coefficient of Variation % 26.1 % (11.5-15.5); Red Blood Count 2.04 m/uL (4.00-5.20); White Blood Count* 3.03 K/uL (4.50-11.00)
[2022-02-11 09:23] LABS: Hemoglobin* 5.6 gm/dL (12.0-16.0); Slide Review Reflex Yes
[2022-02-11 09:30] LABS: Chloride* 103 mmol/L (96-114); Sodium* 137 mmol/L (135-149)
[2022-02-11 09:33] LABS: Blood Urea Nitrogen* 46 mg/dL (7-30); Carbon Dioxide* 32 mmol/L (20-32); Creatinine* 1.2 mg/dL (0.5-1.5); Estimated Glomerular Filt Rate 54 ml/min
[2022-02-11 09:34] LABS: Calcium* 8.9 mg/dL (8.4-10.6); Glucose* 139 mg/dL (60-115)
[2022-02-11 09:38] LABS: Slide Review Acceptable Review (Acceptable)
--- NOTE | 2022-02-11 14:51 | ONC.NURNOTE ---
Hemoglobin 5.6 this am. Results called to pt, per Karol, she would like pt to be transfused today, however, pt did not want to come back today. Discussed with Karol Starks APRN, and pt will receive 2 units of PRBCs-irradiated on 02/12/22. Labs faxed to [facility].
[2022-02-12] VITALS (10 sets, daily range): BP systolic 96–122; BP diastolic 51–90; PULSE 85–113; RESP 16–20; TEMP 35.9–36.8; O2SAT 95–97
[2022-02-15 08:44] VITALS: BP 114/58; PULSE 106; RESP 16; TEMP 36.8; O2SAT 95
[2022-02-15 09:50] VITALS: BP 114/58; PULSE 106; RESP 20; TEMP 36.4; O2SAT 95
[2022-02-15 10:05] VITALS: BP 104/69; PULSE 91; RESP 20; O2SAT 96
[2022-02-15 10:50] VITALS: BP 107/70; PULSE 112; RESP 20; TEMP 36.4; O2SAT 96
[2022-02-15 11:39] VITALS: BP 115/75; PULSE 97; RESP 20; O2SAT 96
[2022-02-15 12:10] VITALS: BP 127/73; PULSE 107; RESP 18; TEMP 36.1; O2SAT 96
[2022-02-18 09:16] LABS: Basophils Percent Auto 1.9 % (0.0-3.0); Eosinophils Percent Auto 0.6 % (0.0-7.0); Hematocrit 20.6 % (33.0-51.0); Immature Granulocytes Abs Auto 0.48 K/uL (0.00-0.30); Lymphocytes Percent Auto 13.4 % (20-44); Mean Corpuscular HGB Conc 31 gm/dL (32-36); Mean Corpuscular Hemoglobin 27 pg (26-34); Mean Corpuscular Volume 90 fL (80-100); Monocytes Percent Auto 9.9 % (0.0-11.0); Neutrophils Percent Auto 58.9 % (42.0-72.0); Platelet Count* 79 K/uL (140-440); RDW Coefficient of Variation % 24.1 % (11.5-15.5); White Blood Count* 3.13 K/uL (4.50-11.00)
[2022-02-18 09:25] LABS: Hemoglobin* 6.3 gm/dL (12.0-16.0); Slide Review Reflex Yes
[2022-02-18 09:27] LABS: Slide Review Acceptable Review (Acceptable)
[2022-02-18 09:28] LABS: Chloride* 103 mmol/L (96-114); Potassium* 4.9 mmol/L (3.6-5.1); Sodium* 140 mmol/L (135-149)
[2022-02-18 09:31] LABS: Blood Urea Nitrogen* 33 mg/dL (7-30); Carbon Dioxide* 30 mmol/L (20-32); Estimated Glomerular Filt Rate 67 ml/min; Glucose* 129 mg/dL (60-115)
[2022-02-18 09:32] LABS: Calcium* 8.6 mg/dL (8.4-10.6)
[2022-02-19 08:32] VITALS: BP 123/73; PULSE 100; RESP 16; TEMP 36.3; O2SAT 94
[2022-02-19 08:42] VITALS: BP 123/73; PULSE 100; RESP 16; TEMP 36.3; O2SAT 94
[2022-02-19 09:59] VITALS: BP 114/76; PULSE 91; RESP 16; TEMP 36.6; O2SAT 98
[2022-02-19 10:40] VITALS: BP 109/67; PULSE 91; RESP 18; TEMP 36.7; O2SAT 97
[2022-02-19 11:44] VITALS: BP 121/74; PULSE 88; RESP 18; TEMP 36.6; O2SAT 98
[2022-02-19 11:51] VITALS: BP 124/74; PULSE 93; RESP 18; TEMP 36.9; O2SAT 96
[2022-02-21 09:58] LABS: Basophils Percent Auto 2.1 % (0.0-3.0); Eosinophils Percent Auto 0.8 % (0.0-7.0); Hematocrit 21.4 % (33.0-51.0); Immature Granulocytes Abs Auto 0.36 K/uL (0.00-0.30); Lymphocytes Percent Auto 13.5 % (20-44); Mean Corpuscular HGB Conc 31 gm/dL (32-36); Mean Corpuscular Hemoglobin 28 pg (26-34); Mean Corpuscular Volume 89 fL (80-100); Monocytes Percent Auto 7.6 % (0.0-11.0); Neutrophils Percent Auto 60.8 % (42.0-72.0); Platelet Count* 59 K/uL (140-440); RDW Coefficient of Variation % 23.1 % (11.5-15.5); White Blood Count* 2.37 K/uL (4.50-11.00)
[2022-02-21 10:29] LABS: Hemoglobin* 6.7 gm/dL (12.0-16.0)
--- NOTE | 2022-02-21 11:57 | ONC.NURNOTE ---
Left message with pt stating hgb 6.7 and 1 unit of irradiated PRBCs is ordered for 02/22/22.
[2022-02-22] VITALS (7 sets, daily range): BP systolic 108–121; BP diastolic 73–85; PULSE 95–114; RESP 16–18; TEMP 36.4–36.9; O2SAT 97–98
[2022-02-22 07:45] LABS: Slide Review Acceptable Review (Acceptable); Slide Review Reflex Yes
[2022-02-22] MEDS: SODIUM CHLORIDE 0.9 % (FLUSH) 10 ML SYRINGE IVF (15:06)
--- NOTE | 2022-02-22 15:22 | ONC.NURNOTE ---
TOLERATED TRANSFUSION WELL. LS CLEAR , HEART RATE REG B4 AND AFTER.
--- NOTE | 2022-02-22 16:21 | P.EN_ITS ---
Chart Event Note Chart Event Note: Care coordination: Myelofibrosis, splenomegally, transfusion dependent anemia This chart note is for purposes of care coordination. Ms. Dobbs is followed at [facility] and also at our clinic by [facility]. Plan for Ms. Dobbs has been to decrease her splenomegally prior to surgical removal, possible future bone marrow transplant. She has been treated with jakafi, alisertib, and clinical trial at [facility]. She has been on fedratinib since 06/2021. It is noted that Ms. Dobbs's transfusion requirement has increased from 1 unit per week, to 2 units per week, and most recently 3 units per week to maintain her hemoglobin to near 7gm/dL. She does not demonstrate signs of active bleeding. She was seen on 02/14/[address] Janusz Govea on 02/14/22 to reevaluate treatment plan. Per abstracted note, ultrasound imaging reveals spleen at 30 cm, with symptoms of constipation, bloating, early satiety, nausea and narcotic pain control. She has been referred to general surgery for recommended splenectomy. She is weaning off of her fedratinib, with hope that her transfusion requirements may decrease slightly. She continues to have Biweekly CBC's on Mondays and , with transfusion planned on Friday and here at [place]. It is noted per chart notes that she has surgical consult scheduled at [facility] for 02/26/22.
[2022-02-25 09:56] LABS: Basophils Percent Auto 1.2 % (0.0-3.0); Eosinophils Percent Auto 0.3 % (0.0-7.0); Hematocrit 23.1 % (33.0-51.0); Immature Granulocytes Abs Auto 0.49 K/uL (0.00-0.30); Lymphocytes Percent Auto 14.5 % (20-44); Mean Corpuscular HGB Conc 31 gm/dL (32-36); Mean Corpuscular Hemoglobin 28 pg (26-34); Mean Corpuscular Volume 89 fL (80-100); Monocytes Percent Auto 6.8 % (0.0-11.0); Neutrophils Percent Auto 62.7 % (42.0-72.0); Platelet Count* 64 K/uL (140-440); RDW Coefficient of Variation % 23.6 % (11.5-15.5); Red Blood Count 2.61 m/uL (4.00-5.20); White Blood Count* 3.38 K/uL (4.50-11.00)
[2022-02-25 10:09] LABS: Chloride* 103 mmol/L (96-114); Potassium* 4.6 mmol/L (3.6-5.1); Sodium* 139 mmol/L (135-149)
[2022-02-25 10:12] LABS: Carbon Dioxide* 29 mmol/L (20-32); Estimated Glomerular Filt Rate 67 ml/min; Hemoglobin* 7.2 gm/dL (12.0-16.0); Slide Review Reflex Yes
[2022-02-25 10:13] LABS: Blood Urea Nitrogen* 35 mg/dL (7-30); Calcium* 8.8 mg/dL (8.4-10.6); Glucose* 164 mg/dL (60-115)
[2022-02-25 10:53] LABS: Slide Review Acceptable Review (Acceptable)
[2022-02-26 08:33] VITALS: BP 102/54; PULSE 86; PULSE 93; RESP 16; TEMP 36.5; O2SAT 93
[2022-02-26 09:21] VITALS: BP 102/54; PULSE 86; RESP 18; TEMP 36.6; O2SAT 93
[2022-02-26 09:41] VITALS: BP 105/61; PULSE 83; RESP 18; TEMP 36.8; O2SAT 99
[2022-02-26 10:30] VITALS: BP 108/72; PULSE 82; RESP 18; TEMP 36.5; O2SAT 96
[2022-02-26 11:15] VITALS: BP 112/76; PULSE 81; RESP 20; TEMP 36.8; O2SAT 97
[2022-02-26 11:45] VITALS: TEMP 36.3
--- NOTE | 2022-02-26 12:41 | ONC.NURNOTE ---
1/2 hr post infusion VS. Pt allowed temp but did not stay for rest of vs.
--- NOTE | 2022-02-28 09:13 | ONC.NURNOTE ---
Addendum entered by Linda Andrews RN 02/28/22 16:07: Patient's spouse called office and stated that patient was unable to make it to her appointment. She was just feeling too ill. Wondering about coming to [facility] tomorrow, creative services writer told them that they would need to do the same procedure that was set up for today if she has any symptoms. They will contact us if they want to come in tomorrow and prior to appointment on Friday. They were told that if unable to set this up, they are always able to go through the ER and would be able to have all of this set up with an ER visit. Spouse is understanding. Addendum entered by Linda Andrews RN 02/28/22 15:49: No labs noted in chart for today. Called and LMOM for spouse to check on patient status. Original Note: Patient's spouse called office stating that patient had COVID booster yesterday, but also had multiple appointments at the [facility]. She is feeling ill today, weakness and diarrhea. They wonder about coming to the infusion center. SR. PRICING ANALYST would like patient checked for CBC, but will need COVID test first. [facility] able to see patient at 10:30, and will do COVID test followed by CBC and type and screen. Clinic was notified that they will need to have hospital lab personale witness the type and screen draw. Patient's spouse notified of appointment.
--- NOTE | 2022-02-28 16:07 | ONC.NURNOTE ---
Splenectomy is scheduled for 03/13/2022.
--- NOTE | 2022-03-01 17:24 | ONC.NURNOTE ---
Message left with Ms Dobbs's phone to call before she comes on Friday for blood draw as she will need to have covid pcr prior to coming to [facility]. Message included procedure to be swabbed in her car and wait for negative result Friday am. Also recommended that if she isn't feeling well this weekend, she should present to the ED, be tested for covid as well as lab work for possible transfusion. Important to be tested and receive appropriate antiviral therapy due to her immunocompromised state. Ms. Dobbs has been requiring 2-3 units of blood per week. She is no longer taking her medication for myelofibrosis, which may improve her need for blood, however, she has only had 1 unit this week, on Friday.
[2022-03-04 09:36] LABS: Basophils Percent Auto 1.7 % (0.0-3.0); Eosinophils Percent Auto 0.7 % (0.0-7.0); Hematocrit 21.9 % (33.0-51.0); Immature Granulocytes Abs Auto 0.43 K/uL (0.00-0.30); Lymphocytes Percent Auto 13.3 % (20-44); Mean Corpuscular HGB Conc 31 gm/dL (32-36); Mean Corpuscular Hemoglobin 28 pg (26-34); Mean Corpuscular Volume 89 fL (80-100); Platelet Count* 64 K/uL (140-440); RDW Coefficient of Variation % 24.6 % (11.5-15.5); Red Blood Count 2.47 m/uL (4.00-5.20)
[2022-03-04 09:55] LABS: Chloride* 101 mmol/L (96-114); Sodium* 139 mmol/L (135-149)
[2022-03-04 09:56] LABS: Potassium* 4.8 mmol/L (3.6-5.1)
[2022-03-04 09:58] LABS: Creatinine* 1.1 mg/dL (0.5-1.5); Estimated Glomerular Filt Rate 60 ml/min
[2022-03-04 09:59] LABS: Blood Urea Nitrogen* 39 mg/dL (7-30); Calcium* 8.8 mg/dL (8.4-10.6); Carbon Dioxide* 31 mmol/L (20-32); Glucose* 132 mg/dL (60-115)
[2022-03-04 10:03] LABS: Hemoglobin* 6.8 gm/dL (12.0-16.0); Slide Review Reflex Yes
[2022-03-04 12:07] LABS: Slide Review Acceptable Review (Acceptable)
[2022-03-05] VITALS (7 sets, daily range): BP systolic 101–111; BP diastolic 54–72; PULSE 85–114; RESP 16–20; TEMP 36.3–36.6; O2SAT 96–98
--- NOTE | 2022-03-07 15:34 | ONC.NURNOTE ---
Pt did not show up for blood draw today, typewriter ribbon winder left message on pt's phone to call and reschedule.
--- NOTE | 2022-03-11 15:23 | ONC.NURNOTE ---
Addendum entered by Cele Valentine RN 03/21/22 10:02: Pt doing well following splenectomy on 03/13/22. Appt made for blood draw on 03/25/22 and possible blood transfusion on 03/26/22. Original Note: Pt did not show up for blood draw today. Adult Basic Studies Teacher called and spoke to Gian who stated pt will be at [facility] tomorrow for a blood draw and [facility] will administer a blood transfusion if needed. Pt is scheduled for surgery at [facility] on 03/13/22.
[2022-03-25 09:11] LABS: Albumin* 3.9 g/dL (3.3-5.0); Chloride* 101 mmol/L (96-114)
[2022-03-25 09:12] LABS: Potassium* 4.4 mmol/L (3.6-5.1); Sodium* 138 mmol/L (135-149)
[2022-03-25 09:14] LABS: Basophils Percent Auto 5.9 % (0.0-3.0); Bilirubin Total* 0.2 mg/dL (0.1-1.5); Carbon Dioxide* 33 mmol/L (20-32); Creatinine* 0.9 mg/dL (0.5-1.5); Eosinophils Percent Auto 0.6 % (0.0-7.0); Estimated Glomerular Filt Rate 76 ml/min; Hematocrit 25.9 % (33.0-51.0); Immature Granulocytes Abs Auto 3.01 K/uL (0.00-0.30); Lymphocytes Percent Auto 20.2 % (20-44); Mean Corpuscular HGB Conc 29 gm/dL (32-36); Mean Corpuscular Hemoglobin 28 pg (26-34); Mean Corpuscular Volume 94 fL (80-100); Monocytes Percent Auto 6.9 % (0.0-11.0); Neutrophils Percent Auto 53.8 % (42.0-72.0); Platelet Count* 660 K/uL (140-440); RDW Coefficient of Variation % 21.8 % (11.5-15.5); Red Blood Count 2.76 m/uL (4.00-5.20); Total Protein* 6.7 g/dL (6.0-8.3); White Blood Count* 23.94 K/uL (4.50-11.00)
[2022-03-25 09:15] LABS: Alanine Aminotransferase* 53 U/L (4-35); Alkaline Phosphatase* 138 U/L (40-150); Aspartate Amino Transferase* 40 U/L (12-35); Blood Urea Nitrogen* 20 mg/dL (7-30); Glucose* 122 mg/dL (60-115)
[2022-03-25 10:27] LABS: Hemoglobin* 7.6 gm/dL (12.0-16.0); Slide Review Reflex No
--- NOTE | 2022-03-25 11:43 | ONC.NURNOTE ---
Patient came in for blood draw today. Hbg was 7.6 and platelets were 660,000. Reviewed results with Dr. Kunz. This is to be expected post splenectomy. Called patient and spoke with patients , Gian. He stated patient denies need for transfusion but is having a lot of incisional pain. Encouraged him to call patients surgeon to make sure that is not a concern. Gian asked if Karol would just prescribe them oxycodone. It appears she refilled this for patient on 03/06/22 and it would be too soon to prescribe more at this time. Gian continued to ask if we would run it past Karol. Handed this information off to Clinical Coordinator who will run past Kar[facility] and will follow up with patient. New order for transfusion protocols obtained from Dr. Kunz and placed in chart.
--- NOTE | 2022-03-25 12:31 | ONC.NURNOTE ---
Patient's spouse called office requesting refill on patient's oxycodone. These were refilled by [facility] on 03/06/2022 - see nursing note. Patient was taking no more than 4 pills in a 24 hour period and was prescribed #110. Patient had splenectomy and per spouse was told to take 3 pills every 3 hours for pain, so patient is now out of medication. This is significantly more than previously prescribed and our office has not seen patient since her surgery. Aoc Director Intelligence Officer asked if patient taking the #24/day, and spouse notes that not really sure, but somewhere around that much. Per spouse incision looks good. Patient using sennakot, so no constipation either. Most of pain is at incision site. Spouse was told that they will need to contact [facility] to discuss pain management. In order to prescribe more medications for this pain, patient will need to be seen here and REHABILITATION MEDICINE PHYSICIAN is out at this time. They will contact [facility], and will contact us if there are any issues with this later today or tomorrow morning.
[2022-04-01 10:17] LABS: Basophils Percent Auto 7.2 % (0.0-3.0); Eosinophils Percent Auto 0.5 % (0.0-7.0); Hematocrit 25.4 % (33.0-51.0); Immature Granulocytes Abs Auto 2.33 K/uL (0.00-0.30); Lymphocytes Percent Auto 30.8 % (20-44); Mean Corpuscular HGB Conc 29 gm/dL (32-36); Mean Corpuscular Hemoglobin 27 pg (26-34); Mean Corpuscular Volume 93 fL (80-100); Monocytes Percent Auto 5.9 % (0.0-11.0); Neutrophils Percent Auto 45.8 % (42.0-72.0); Platelet Count* 660 K/uL (140-440); RDW Coefficient of Variation % 22.9 % (11.5-15.5); Red Blood Count 2.74 m/uL (4.00-5.20)
[2022-04-01 10:42] LABS: Hemoglobin* 7.4 gm/dL (12.0-16.0)
[2022-04-01 10:59] LABS: Slide Review Reflex Yes
[2022-04-01 11:00] LABS: Slide Review Acceptable Review (Acceptable)
[2022-04-01 11:15] LABS: Chloride* 101 mmol/L (96-114); Sodium* 139 mmol/L (135-149)
[2022-04-01 11:16] LABS: Potassium* 5.2 mmol/L (3.6-5.1)
[2022-04-01 11:18] LABS: Blood Urea Nitrogen* 24 mg/dL (7-30); Carbon Dioxide* 32 mmol/L (20-32); Creatinine* 0.8 mg/dL (0.5-1.5); Estimated Glomerular Filt Rate 88 ml/min
[2022-04-01 11:19] LABS: Calcium* 9.4 mg/dL (8.4-10.6); Glucose* 105 mg/dL (60-115)
--- NOTE | 2022-04-01 12:27 | ONC.NURNOTE ---
Called pt with results. Pt verbalized understanding of results.
[2022-04-08 11:14] LABS: White Blood Count* 19.65 K/uL (4.50-11.00)
[2022-04-08 11:15] LABS: Mean Corpuscular HGB Conc 29 gm/dL (32-36); Mean Corpuscular Hemoglobin 27 pg (26-34); Mean Corpuscular Volume 93 fL (80-100); Platelet Count* 858 K/uL (140-440); RDW Coefficient of Variation % 26.5 % (11.5-15.5)
[2022-04-08 11:18] LABS: Hemoglobin* 7.6 gm/dL (12.0-16.0)
[2022-04-08 11:19] LABS: Slide Review Reflex Yes
[2022-04-08 11:20] LABS: Slide Review Acceptable Review (Acceptable)
--- NOTE | 2022-04-08 11:55 | ONC.NURNOTE ---
Labs results called to pt and faxed to her md.
[2022-04-15 09:27] LABS: Albumin* 4.5 g/dL (3.3-5.0); Chloride* 100 mmol/L (96-114); Sodium* 137 mmol/L (135-149)
[2022-04-15 09:28] LABS: Potassium* 4.1 mmol/L (3.6-5.1)
[2022-04-15 09:30] LABS: Alanine Aminotransferase* 50 U/L (4-35); Alkaline Phosphatase* 118 U/L (40-150); Aspartate Amino Transferase* 42 U/L (12-35); Bilirubin Total* 0.4 mg/dL (0.1-1.5); Blood Urea Nitrogen* 22 mg/dL (7-30); Carbon Dioxide* 31 mmol/L (20-32); Creatinine* 0.9 mg/dL (0.5-1.5); Estimated Glomerular Filt Rate 76 ml/min; Glucose* 132 mg/dL (60-115); Total Protein* 7.4 g/dL (6.0-8.3)
[2022-04-15 10:12] LABS: Hematocrit 27.1 % (33.0-51.0); Mean Corpuscular HGB Conc 29 gm/dL (32-36); Mean Corpuscular Hemoglobin 27 pg (26-34); Mean Corpuscular Volume 93 fL (80-100); RDW Coefficient of Variation % 28.8 % (11.5-15.5); Red Blood Count 2.93 m/uL (4.00-5.20)
[2022-04-15 11:09] LABS: White Blood Count* 43.22 K/uL (4.50-11.00)
[2022-04-15 11:11] LABS: Corrected White Blood Count 21.61 K/UL (4.50-11.00)
[2022-04-15 11:22] LABS: Immature Granulocytes Abs Auto 0.86 K/uL (0.00-0.30)
[2022-04-15 11:33] LABS: Slide Review Reflex Yes
[2022-04-15 11:36] LABS: Hemoglobin* 7.8 gm/dL (12.0-16.0); Platelet Count* 1061 K/uL (140-440)
[2022-04-15 11:39] LABS: Slide Review Acceptable Review (Acceptable)
[2022-04-23 09:42] LABS: Hematocrit 29.3 % (33.0-51.0); Hemoglobin* 8.5 gm/dL (12.0-16.0); Mean Corpuscular HGB Conc 29 gm/dL (32-36); Mean Corpuscular Hemoglobin 27 pg (26-34); Mean Corpuscular Volume 93 fL (80-100); RDW Coefficient of Variation % 29.4 % (11.5-15.5); Red Blood Count 3.15 m/uL (4.00-5.20)
[2022-04-23 10:02] LABS: Chloride* 101 mmol/L (96-114); Potassium* 4.5 mmol/L (3.6-5.1); Sodium* 137 mmol/L (135-149)
[2022-04-23 10:05] LABS: Blood Urea Nitrogen* 30 mg/dL (7-30); Carbon Dioxide* 28 mmol/L (20-32); Creatinine* 0.9 mg/dL (0.5-1.5); Estimated Glomerular Filt Rate 76 ml/min; Glucose* 127 mg/dL (60-115)
[2022-04-23 10:06] LABS: Calcium* 10.2 mg/dL (8.4-10.6)
[2022-04-23 10:22] LABS: Platelet Count* 1121 K/uL (140-440)
[2022-04-23 10:24] LABS: Immature Granulocytes Abs Auto 1.18 K/uL (0.00-0.30)
[2022-04-23 10:27] LABS: Slide Review Reflex Yes; White Blood Count* 23.57 K/uL (4.50-11.00)
[2022-04-23 10:30] LABS: Slide Review Acceptable Review (Acceptable)
--- NOTE | 2022-04-23 10:56 | ONC.NURNOTE ---
Labs faxed to [facility] Dr. Govea. Heavy Equipment Diesel Mechanic also left message for pt to call for lab results.
--- NOTE | 2022-04-25 14:29 | ONC.NURNOTE ---
Addendum entered by Yanira Jama RN 04/25/22 14:49: Clarification on labs and CBC every 2 weeks and CMP every [address] Nava Original Note: Dr. Jennifer Nava reviewed MD note from Reema[facility] Xuan and is OK with patient having labs every two weeks now instead of weekly. Message left for patient to call and schedule labs for labs around 05/06
[2022-05-13 10:12] LABS: Basophils Percent Auto 8.8 % (0.0-3.0); Eosinophils Percent Auto 1.3 % (0.0-7.0); Hematocrit 25.3 % (33.0-51.0); Lymphocytes Percent Auto 25.4 % (20-44); Mean Corpuscular HGB Conc 29 gm/dL (32-36); Mean Corpuscular Hemoglobin 28 pg (26-34); Mean Corpuscular Volume 94 fL (80-100); Monocytes Percent Auto 10.9 % (0.0-11.0); Neutrophils Percent Auto 41.9 % (42.0-72.0); Platelet Count* 1000 K/uL (140-440); RDW Coefficient of Variation % 33.6 % (11.5-15.5); Red Blood Count 2.69 m/uL (4.00-5.20); White Blood Count* 17.04 K/uL (4.50-11.00)
[2022-05-13 11:12] LABS: Hemoglobin* 7.4 gm/dL (12.0-16.0); Slide Review Reflex Yes
[2022-05-13 11:30] LABS: Corrected White Blood Count 9.06 K/UL (4.50-11.00)
[2022-05-13 11:32] LABS: Slide Review Acceptable Review (Acceptable)
--- NOTE | 2022-05-13 12:38 | ONC.NURNOTE ---
Labs along with request for clarification on frequency of BMP/CM sent to [facility]-Dr. Govea. CBC now every 2 weeks but unsure how often to do chemistries. Gian (Jennifer's significant other) updated on blood counts
[2022-05-27 09:59] LABS: Hematocrit 23.6 % (33.0-51.0); Mean Corpuscular HGB Conc 30 gm/dL (32-36); Mean Corpuscular Hemoglobin 29 pg (26-34); Mean Corpuscular Volume 96 fL (80-100); Platelet Count* 715 K/uL (140-440); Red Blood Count 2.46 m/uL (4.00-5.20)
[2022-05-27 10:26] LABS: Hemoglobin* 7.1 gm/dL (12.0-16.0)
[2022-05-27 10:28] LABS: Slide Review Reflex Yes
[2022-05-27 16:00] LABS: Slide Review Acceptable Review (Acceptable)
[2022-06-10 10:12] LABS: Hematocrit 23.3 % (33.0-51.0); Mean Corpuscular HGB Conc 30 gm/dL (32-36); Mean Corpuscular Hemoglobin 29 pg (26-34); Mean Corpuscular Volume 97 fL (80-100); Platelet Count* 994 K/uL (140-440); RDW Coefficient of Variation % 37.7 % (11.5-15.5); Red Blood Count 2.41 m/uL (4.00-5.20)
[2022-06-10 10:44] LABS: White Blood Count* 34.63 K/uL (4.50-11.00)
[2022-06-10 10:45] LABS: Corrected White Blood Count 21.37 K/UL (4.50-11.00)
[2022-06-10 10:46] LABS: Slide Review Reflex Yes
[2022-06-10 10:49] LABS: Slide Review Acceptable Review (Acceptable)
--- NOTE | 2022-06-10 11:12 | ONC.NURNOTE ---
Hgb called to patient. 7.0. pt states asymptomatic choosing to not receive blood . recheck this .
--- NOTE | 2022-06-10 11:28 | ONC.NURNOTE ---
called pt. her wbc is elevated. pt denies fever, cough or sinus drainage. states cold over weekend. denies now. faxed to her md. pt enc call if symptomatic.
[2022-06-13 10:27] LABS: Hematocrit 24.3 % (33.0-51.0); Mean Corpuscular HGB Conc 30 gm/dL (32-36); Mean Corpuscular Hemoglobin 29 pg (26-34); Mean Corpuscular Volume 98 fL (80-100); Platelet Count* 962 K/uL (140-440); RDW Coefficient of Variation % 36.8 % (11.5-15.5); Red Blood Count 2.47 m/uL (4.00-5.20)
[2022-06-13 10:35] LABS: Hemoglobin* 7.2 gm/dL (12.0-16.0); Slide Review Reflex Yes; White Blood Count* 39.86 K/uL (4.50-11.00)
[2022-06-13 11:42] LABS: Slide Review Acceptable Review (Acceptable)
[2022-06-13 11:47] LABS: Corrected White Blood Count 15.27 K/UL (4.50-11.00)
--- NOTE | 2022-06-13 12:00 | ONC.NURNOTE ---
Faxed patients lab results to Dr. Govea at [phone]. Called patients spouse and related all results. He was instructed to contact [place] to determine if anything needs to be done regarding elevation of WBC. Commercial Driver'S License Driver questioned about hemaglobin symptoms, and she denies more SOB than usual. Patient and spouse were notified of symptoms to call us for: SOB Elevated heart rate/palpitations Increased weakness Increased fatigue
[2022-07-01 10:12] LABS: Hematocrit 24.1 % (33.0-51.0); Mean Corpuscular HGB Conc 29 gm/dL (32-36); Mean Corpuscular Hemoglobin 29 pg (26-34); Mean Corpuscular Volume 101 fL (80-100); Platelet Count* 940 K/uL (140-440); RDW Coefficient of Variation % 40.6 % (11.5-15.5); Red Blood Count 2.39 m/uL (4.00-5.20)
[2022-07-01 11:54] LABS: Corrected White Blood Count 20.47 K/UL (4.50-11.00); Slide Review Reflex Yes
[2022-07-01 15:12] LABS: Slide Review Acceptable Review (Acceptable)
--- NOTE | 2022-07-02 13:09 | ONC.NURNOTE ---
Labs reviewed and discussed with Gian jacobs is asymptomatic at this time with Hg 7.0 plan discussed with Karol and Dr Tran office in [facility] to recheck CBC in 1 week today's labs faxed to Dr Tran and were received- they are following her platelets for hydrea management next appt with [facility] is 07/23/22
--- NOTE | 2022-07-04 09:36 | ONC.NURNOTE ---
Patient comes into clinic today stating that she has a headache, nausea, extreme fatigue and chest pressure/pain. Patient was instructed that would be best if she was seen in the ER for a COVID test and EKG. Patient refusing to be seen in the ER, she states that she came here as she just wants to have her labs checked. Patient encouraged again to go to ER, she refused. CBC order was obtained from Dr. Nava and will watch for results for patient.
[2022-07-04 09:57] LABS: Hematocrit 23.5 % (33.0-51.0); Mean Corpuscular HGB Conc 29 gm/dL (32-36); Mean Corpuscular Hemoglobin 30 pg (26-34); Mean Corpuscular Volume 101 fL (80-100); RDW Coefficient of Variation % 40.7 % (11.5-15.5); Red Blood Count 2.32 m/uL (4.00-5.20)
[2022-07-04 10:39] LABS: Hemoglobin* 6.9 gm/dL (12.0-16.0); Platelet Count* 1075 K/uL (140-440)
[2022-07-04 10:54] LABS: White Blood Count* 53.16 K/uL (4.50-11.00)
[2022-07-04 10:55] LABS: Slide Review Reflex Yes
[2022-07-04 13:48] VITALS: BP 126/76; PULSE 79; RESP 18; TEMP 36.9; O2SAT 96
[2022-07-04 14:05] VITALS: BP 130/76; PULSE 82; RESP 20; TEMP 37.1; O2SAT 97
[2022-07-04 14:50] VITALS: BP 129/79; PULSE 74; RESP 18; TEMP 36.9; O2SAT 96
[2022-07-04 15:34] LABS: Slide Review Acceptable Review (Acceptable)
[2022-07-04 15:50] VITALS: BP 125/60; PULSE 79; RESP 16; TEMP 36.9; O2SAT 97
[2022-07-04 16:30] VITALS: BP 137/80; PULSE 83; RESP 18; TEMP 37.2; O2SAT 97
[2022-07-18 10:01] LABS: Basophils Percent Auto 9.8 % (0.0-3.0); Hematocrit 25.2 % (33.0-51.0); Immature Granulocytes Pct Auto 0.2 %; Lymphocytes Percent Auto 32.7 % (20-44); Mean Corpuscular HGB Conc 30 gm/dL (32-36); Mean Corpuscular Hemoglobin 31 pg (26-34); Mean Corpuscular Volume 104 fL (80-100); Monocytes Percent Auto 3.5 % (0.0-11.0); Neutrophils Percent Auto 52.8 % (42.0-72.0); Platelet Count* 941 K/uL (140-440); RDW Coefficient of Variation % 34.8 % (11.5-15.5); Red Blood Count 2.42 m/uL (4.00-5.20)
[2022-07-18 11:20] LABS: Hemoglobin* 7.6 gm/dL (12.0-16.0); Slide Review Reflex Yes
--- NOTE | 2022-07-18 11:28 | ONC.NURNOTE ---
called to pts.
[2022-07-18 19:34] LABS: Slide Review Acceptable Review (Acceptable)
== END 2022-08-10 23:59 | disposition home or self-care (01) ==
LOC: CCIC 09:30
PROVIDERS: Clinical Nurse Specialist; Internal Medicine Hematology & Oncology; PCP Emergency Medicine; Referring Provider Emergency Medicine; Visit Provider Internal Medicine Medical Oncology
DX: D75.81 Myelofibrosis (principal); I50.810 Right heart failure, unspecified
CPT/HCPCS: 36415; 36430; 80048; 80053; 85025; 86850; 86900; 86901; 86922; 99212; 99214; 99215; P9016

== ENCOUNTER 2022-09-16 11:47 | Outpatient (CLI) | payer MEDICARE, MEDICAID, SELFPAY ==
--- NOTE | 2022-09-16 12:52 | W.ANESCHARGE ---
Anesthesia Charges Start Date/Time Anesthesia Start Date: 09/16/22 Anesthesia Start Time: 12:30 Stop Date/Time Anesthesia Stop Date: 09/16/22 Anesthesia Stop Time: 13:04
--- NOTE | 2022-09-16 13:02 | W.ANESCHARGE ---
Anesthesia Charges Start Date/Time Anesthesia Start Date: 09/16/22 Anesthesia Start Time: 12:30 Stop Date/Time Anesthesia Stop Date: 09/16/22 Anesthesia Stop Time: 13:04
== END 2022-09-16 11:48 | disposition home or self-care (01) ==
LOC: OP CLINIC 11:48
PROVIDERS: PCP Internal Medicine; Visit Provider Surgery
DX: Z12.11 Encounter for screening for malignant neoplasm of colon (principal); K63.5 Polyp of colon; K62.1 Rectal polyp; Z80.0 Family history of malignant neoplasm of digestive organs
CPT/HCPCS: 00811; 45385; 88305; J2704

== ENCOUNTER 2022-11-06 08:05 | Outpatient (CLI) | payer MEDICARE, MEDICAID, SELFPAY ==
--- NOTE | 2022-11-06 08:15 | CRLHL7_ITS ---
For Patients: As a result of the Cures Act, medical imaging exams and procedure reports are released immediately into your electronic medical record. You may view this report before your referring provider. If you have questions, please contact your health care provider. BILATERAL SCREENING MAMMOGRAM WITH COMPUTER-AIDED DETECTION AND TOMOSYNTHESIS TECHNIQUE: CC and MLO views were obtained. These mammographic images have been obtained using full-field digital technique. These mammographic images were interpreted with the benefit of computer-aided detection. Breast tomosynthesis was used in this interpretation. COMPARISON FILM: None. This is a baseline study. FINDINGS: There are scattered areas of fibroglandular density. IMPRESSION: There is no radiographic evidence for malignancy. ASSESSMENT: BI-RADS Category 1: Negative RECOMMENDATION: Routine screening mammogram in 1 year. A lay language report of this examination will be provided to the patient. ALEA MARTINEZ M.D. Diagnostic/Nuclear Medicine Radiologist [email or web address] KATY:radames Transcribed: 11/06/2022, 2:[address]/Dictated by: Alea Martinez MD @ 11/06/2022 9:20:00 AM (Electronically Signed)
== END 2022-11-06 08:06 | disposition home or self-care (01) ==
LOC: MAMMO 08:06
PROVIDERS: PCP Internal Medicine; Visit Provider Internal Medicine
DX: Z12.31 Encounter for screening mammogram for malignant neoplasm of breast (principal)
CPT/HCPCS: 77063; 77067

== ENCOUNTER 2023-02-10 09:30 | Outpatient (RCR) | payer MEDICARE, MEDICAID, SELFPAY ==
[2022-08-22 10:11] LABS: Basophils Percent Auto 8.1 % (0.0-3.0); Eosinophils Percent Auto 0.8 % (0.0-7.0); Hematocrit 24.5 % (33.0-51.0); Immature Granulocytes Pct Auto 13.2 %; Lymphocytes Percent Auto 28.2 % (20-44); Mean Corpuscular HGB Conc 30 gm/dL (32-36); Mean Corpuscular Hemoglobin 32 pg (26-34); Mean Corpuscular Volume 107 fL (80-100); Monocytes Percent Auto 15.5 % (0.0-11.0); Neutrophils Percent Auto 34.2 % (42.0-72.0); RDW Coefficient of Variation % 34.7 % (11.5-15.5)
[2022-08-22 10:16] LABS: White Blood Count* 37.27 K/uL (4.50-11.00)
[2022-08-22 10:17] LABS: Hemoglobin* 7.3 gm/dL (12.0-16.0); Platelet Count* 1472 K/uL (140-440); Slide Review Reflex Yes
[2022-08-22 11:01] LABS: Basophils Absolute Auto 1.32 K/uL (0.00-0.30); Eosinophils Absolute Auto 0.12 K/uL (0.00-0.50); Lymphocytes Absolute Auto 4.62 K/uL (0.90-2.90); Monocytes Absolute Auto 2.52 K/UL (0.00-0.90); Neutrophils Absolute Auto 5.52 K/uL (1.7-7.0)
[2022-08-22 11:02] LABS: Slide Review Acceptable Review (Acceptable)
[2022-09-10 09:05] LABS: Hematocrit 23.7 % (33.0-51.0); Mean Corpuscular HGB Conc 30 gm/dL (32-36); Mean Corpuscular Hemoglobin 31 pg (26-34); Mean Corpuscular Volume 105 fL (80-100); RDW Coefficient of Variation % 36.5 % (11.5-15.5); Red Blood Count 2.25 m/uL (4.00-5.20)
[2022-09-10 09:17] LABS: Albumin* 4.3 g/dL (3.3-5.0); Chloride* 105 mmol/L (96-114)
[2022-09-10 09:18] LABS: Sodium* 140 mmol/L (135-149)
[2022-09-10 09:20] LABS: Aspartate Amino Transferase* 55 U/L (12-35); Bilirubin Total* 0.6 mg/dL (0.1-1.5); Creatinine* 0.9 mg/dL (0.5-1.5); Estimated Glomerular Filt Rate 76 ml/min
[2022-09-10 09:21] LABS: Alanine Aminotransferase* 80 U/L (4-35); Alkaline Phosphatase* 163 U/L (40-150); Blood Urea Nitrogen* 24 mg/dL (7-30); Carbon Dioxide* 30 mmol/L (20-32); Glucose* 113 mg/dL (60-115); Total Protein* 6.9 g/dL (6.0-8.3)
[2022-09-10 09:47] LABS: Platelet Count* 1089 K/uL (140-440)
[2022-09-10 09:48] LABS: Slide Review Reflex Yes
[2022-09-10 09:50] LABS: Slide Review Acceptable Review (Acceptable)
--- NOTE | 2022-09-10 12:57 | ONC.NURNOTE ---
Pathology Secretary called and spoke with Gian (patient in background) and given results of blood test. All labs today faxed to Dr. Govea
[2022-09-13 08:38] VITALS: BP 125/66; PULSE 110; RESP 16; TEMP 36.6; O2SAT 97
[2022-09-13 09:59] VITALS: BP 124/59; PULSE 82; RESP 18; TEMP 36.6; O2SAT 96
[2022-09-13 10:03] VITALS: BP 121/75; PULSE 74; RESP 18; TEMP 36.5; O2SAT 92
[2022-09-13 11:39] VITALS: BP 117/66; PULSE 82; RESP 18; TEMP 36.7; O2SAT 94
[2022-09-13 12:15] VITALS: BP 124/61; PULSE 74; RESP 16; TEMP 36.5; O2SAT 95
[2022-09-23 10:39] LABS: Albumin* 4.5 g/dL (3.3-5.0); Potassium* 4.2 mmol/L (3.6-5.1); Sodium* 139 mmol/L (135-149)
[2022-09-23 10:41] LABS: Creatinine* 0.8 mg/dL (0.5-1.5); Estimated Glomerular Filt Rate 88 ml/min
[2022-09-23 10:42] LABS: Alanine Aminotransferase* 63 U/L (4-35); Alkaline Phosphatase* 161 U/L (40-150); Aspartate Amino Transferase* 55 U/L (12-35); Bilirubin Direct* 0.1 mg/dL (0.0-0.5); Bilirubin Total* 0.7 mg/dL (0.1-1.5); Total Protein* 7.2 g/dL (6.0-8.3)
[2022-09-23 10:58] LABS: Lactate Dehydrogenase* 1274 U/L (120-246)
[2022-09-23 11:03] LABS: Hematocrit 27.9 % (33.0-51.0); Hemoglobin* 8.2 gm/dL (12.0-16.0); Mean Corpuscular HGB Conc 29 gm/dL (32-36); Mean Corpuscular Hemoglobin 29 pg (26-34); Mean Corpuscular Volume 99 fL (80-100); Red Blood Count 2.82 m/uL (4.00-5.20)
[2022-09-23 11:04] LABS: Basophils Percent Auto 7.5 % (0.0-3.0); Eosinophils Percent Auto 0.7 % (0.0-7.0); Lymphocytes Percent Auto 33.5 % (20-44); Monocytes Percent Auto 15.3 % (0.0-11.0); RDW Coefficient of Variation % 36.7 % (11.5-15.5)
[2022-09-23 11:05] LABS: Corrected White Blood Count 31.45 K/UL (4.50-11.00)
[2022-09-23 11:06] LABS: Platelet Count* 1451 K/uL (140-440)
[2022-09-23 11:07] LABS: Slide Review Reflex Yes
[2022-09-23 11:08] LABS: Immature Reticulocyte Fraction 25 % (3.0-15.9); Reticulocyte Hemoglobin Equivi 19.5 pg (29.0-35.0); Reticulocytes Absolute 0.08 # (0.03-0.08); Slide Review Acceptable Review (Acceptable)
--- NOTE | 2022-09-30 16:24 | ONC.NURNOTE ---
Inquired with Lab about the result of the SPSMA sample. They stated that [facility] cancelled the test last week due to the age of the specimen when it was received. Feather Separator asked how old it needs to be less than in order to run the test to see if this is something we can repeat at [facility] or if patient will need to go elsewhere for this test. Lab will find this information out and call us back.
[2022-10-04 10:25] LABS: Basophils Percent Auto 10.1 % (0.0-3.0); Eosinophils Percent Auto 0.6 % (0.0-7.0); Hematocrit 25.2 % (33.0-51.0); Immature Reticulocyte Fraction 27.7 % (3.0-15.9); Lymphocytes Percent Auto 35.9 % (20-44); Mean Corpuscular HGB Conc 29 gm/dL (32-36); Mean Corpuscular Hemoglobin 29 pg (26-34); Mean Corpuscular Volume 99 fL (80-100); Monocytes Percent Auto 17.2 % (0.0-11.0); Neutrophils Percent Auto 36.2 % (42.0-72.0); RDW Coefficient of Variation % 38.7 % (11.5-15.5); Red Blood Count 2.54 m/uL (4.00-5.20); Reticulocyte Hemoglobin Equivi 19.9 pg (29.0-35.0); Reticulocyte Percent 3.7 % (0.5-2.0); Reticulocytes Absolute 0.09 # (0.03-0.08)
[2022-10-04 10:57] LABS: Corrected White Blood Count 15.79 K/UL (4.50-11.00); Hemoglobin* 7.3 gm/dL (12.0-16.0); Platelet Count* 1011 K/uL (140-440); White Blood Count* 49.74 K/uL (4.50-11.00)
[2022-10-04 10:59] LABS: Slide Review Reflex Yes
[2022-10-04 11:09] LABS: Slide Review Acceptable Review (Acceptable)
[2022-10-08 13:02] VITALS: BP 123/82; PULSE 93; RESP 16; TEMP 36.8; O2SAT 95
[2022-10-08 13:37] VITALS: BP 123/82; PULSE 93; RESP 16; TEMP 36.8; O2SAT 95
[2022-10-08] MEDS: 0.9 % SODIUM CHLORIDE 250 ml IV (13:43)
[2022-10-08 13:54] VITALS: BP 117/76; PULSE 80; RESP 16; TEMP 37; O2SAT 95
[2022-10-08 14:40] VITALS: BP 111/61; PULSE 75; RESP 16; TEMP 36.8; O2SAT 93
--- NOTE | 2022-10-08 14:41 | ONC.NURNOTE ---
[facility]
[2022-10-08 15:35] VITALS: BP 122/85; PULSE 75; RESP 16; TEMP 36.9; O2SAT 94
[2022-10-08 16:07] VITALS: BP 117/59; PULSE 78; RESP 16; TEMP 36.9; O2SAT 96
--- NOTE | 2022-10-15 09:14 | ONC.NURNOTE ---
Patients significant other called office to state that patient is needing a recertification from her provider for her medical marijuana. [facility] does not have a provider that it certified any longer. Patients significant other was notified that best options in order to continue with medications would be to make an appointment with primary care provider Dr. Kaur in clinic or call [facility] team to see if they have someone that is certified that can help with this. Gian was understanding of this and will contact these offices.
[2022-10-22 09:46] LABS: Basophils Percent Auto 9.3 % (0.0-3.0); Eosinophils Percent Auto 0.7 % (0.0-7.0); Hemoglobin* 8.3 gm/dL (12.0-16.0); Lymphocytes Percent Auto 35.4 % (20-44); Mean Corpuscular HGB Conc 30 gm/dL (32-36); Mean Corpuscular Hemoglobin 30 pg (26-34); Mean Corpuscular Volume 102 fL (80-100); Monocytes Percent Auto 12.2 % (0.0-11.0); Neutrophils Percent Auto 42.4 % (42.0-72.0); RDW Coefficient of Variation % 35.2 % (11.5-15.5); Red Blood Count 2.74 m/uL (4.00-5.20)
[2022-10-22 10:26] LABS: Platelet Count* 1107 K/uL (140-440)
[2022-10-22 10:27] LABS: White Blood Count* 16.99 K/uL (4.50-11.00)
[2022-10-22 10:28] LABS: Slide Review Reflex Yes
[2022-10-22 10:29] LABS: Slide Review Acceptable Review (Acceptable)
[2022-11-12 09:32] LABS: Basophils Percent Auto 7.4 % (0.0-3.0); Eosinophils Percent Auto 0.8 % (0.0-7.0); Hematocrit 25.8 % (33.0-51.0); Lymphocytes Percent Auto 29.7 % (20-44); Mean Corpuscular HGB Conc 30 gm/dL (32-36); Mean Corpuscular Hemoglobin 30 pg (26-34); Mean Corpuscular Volume 103 fL (80-100); Monocytes Percent Auto 15.2 % (0.0-11.0); Neutrophils Percent Auto 46.9 % (42.0-72.0); Platelet Count* 975 K/uL (140-440); RDW Coefficient of Variation % 37.6 % (11.5-15.5)
--- NOTE | 2022-11-12 09:53 | ONC.NURNOTE ---
Pt's hgb today 7.6; feeling well. Pt sched next blood draw in 1 wk Tu11/19.
[2022-11-12 10:28] LABS: Hemoglobin* 7.6 gm/dL (12.0-16.0); White Blood Count* 17.02 K/uL (4.50-11.00)
[2022-11-12 10:37] LABS: Slide Review Reflex Yes
[2022-11-12 11:23] LABS: Slide Review Acceptable Review (Acceptable)
[2022-11-19 09:28] LABS: Hematocrit 25.5 % (33.0-51.0); Mean Corpuscular HGB Conc 29 gm/dL (32-36); Mean Corpuscular Hemoglobin 31 pg (26-34); Mean Corpuscular Volume 104 fL (80-100); Platelet Count* 950 K/uL (140-440); RDW Coefficient of Variation % 38.7 % (11.5-15.5); Red Blood Count 2.46 m/uL (4.00-5.20)
[2022-11-19 10:12] LABS: Corrected White Blood Count 34.87 K/UL (4.50-11.00); Hemoglobin* 7.5 gm/dL (12.0-16.0); White Blood Count* 70.45 K/uL (4.50-11.00)
[2022-11-19 10:13] LABS: Slide Review Reflex Yes
[2022-11-19 10:18] LABS: Slide Review Acceptable Review (Acceptable)
--- NOTE | 2022-11-19 11:55 | ONC.NURNOTE ---
Patient here for lab draw today. Hbg 7.5. Parameters reviewed and patient does not meet criteria to transfuse this week. Patient has another lab check on 11/25/22. Patient will call if she becomes symptomatic and needs to be drawn sooner.
[2022-11-25 09:30] LABS: Basophils Percent Auto 9.7 % (0.0-3.0); Eosinophils Percent Auto 0.4 % (0.0-7.0); Hematocrit 23.8 % (33.0-51.0); Lymphocytes Percent Auto 30.7 % (20-44); Mean Corpuscular HGB Conc 29 gm/dL (32-36); Mean Corpuscular Hemoglobin 31 pg (26-34); Mean Corpuscular Volume 104 fL (80-100); Monocytes Percent Auto 15.4 % (0.0-11.0); Neutrophils Percent Auto 43.8 % (42.0-72.0); Platelet Count* 938 K/uL (140-440); RDW Coefficient of Variation % 39.2 % (11.5-15.5); Red Blood Count 2.28 m/uL (4.00-5.20)
[2022-11-25 10:18] LABS: White Blood Count* 60.39 K/uL (4.50-11.00)
[2022-11-25 10:19] LABS: Corrected White Blood Count 46.81 K/UL (4.50-11.00); Slide Review Reflex Yes
[2022-11-25 10:21] LABS: Slide Review Acceptable Review (Acceptable)
--- NOTE | 2022-11-25 11:23 | ONC.NURNOTE ---
Reviewed Hgb results of 7.0 with pt; 1 unit PRBC irradiated ordered per standing order. Transfusion scheduled for 11/26 @5680.
[2022-11-26 10:17] VITALS: BP 123/61; PULSE 103; RESP 16; TEMP 36.4; O2SAT 97
[2022-11-26 10:34] VITALS: BP 119/60; PULSE 65; RESP 18; TEMP 36.8; O2SAT 94
[2022-11-26 11:19] VITALS: BP 116/51; PULSE 76; RESP 16; TEMP 36.7; O2SAT 92
[2022-11-26 12:11] VITALS: BP 121/78; PULSE 65; RESP 16; TEMP 36.9; O2SAT 97
[2022-11-26 12:37] VITALS: BP 126/70; PULSE 65; RESP 16; TEMP 37; O2SAT 96
[2022-12-19 09:54] LABS: Basophils Percent Auto 9.4 % (0.0-3.0); Eosinophils Percent Auto 0.5 % (0.0-7.0); Hematocrit 26.7 % (33.0-51.0); Lymphocytes Percent Auto 31.8 % (20-44); Mean Corpuscular HGB Conc 30 gm/dL (32-36); Mean Corpuscular Hemoglobin 31 pg (26-34); Mean Corpuscular Volume 104 fL (80-100); Monocytes Percent Auto 12.8 % (0.0-11.0); Neutrophils Percent Auto 45.5 % (42.0-72.0); RDW Coefficient of Variation % 37.1 % (11.5-15.5); Red Blood Count 2.58 m/uL (4.00-5.20)
[2022-12-19 10:32] LABS: Platelet Count* 1086 K/uL (140-440); White Blood Count* 37.68 K/uL (4.50-11.00)
[2022-12-19 10:33] LABS: Slide Review Reflex Yes
[2022-12-19 10:35] LABS: Slide Review Acceptable Review (Acceptable)
[2023-01-01 09:42] LABS: Mean Corpuscular HGB Conc 30 gm/dL (32-36); Mean Corpuscular Hemoglobin 31 pg (26-34); Mean Corpuscular Volume 106 fL (80-100); Platelet Count* 950 K/uL (140-440); RDW Coefficient of Variation % 38.1 % (11.5-15.5); Red Blood Count 2.27 m/uL (4.00-5.20)
[2023-01-01 10:39] LABS: White Blood Count* 74.32 K/uL (4.50-11.00)
[2023-01-01 10:40] LABS: Corrected White Blood Count 46.17 K/UL (4.50-11.00); Hemoglobin* 7.1 gm/dL (12.0-16.0)
[2023-01-01 10:41] LABS: Slide Review Reflex Yes
[2023-01-01 10:43] LABS: Slide Review Acceptable Review (Acceptable)
[2023-01-03 09:03] VITALS: BP 115/76; PULSE 88; RESP 18; TEMP 36.7; O2SAT 94
[2023-01-03 09:46] VITALS: BP 115/76; PULSE 67; RESP 18; TEMP 36.6; O2SAT 94
[2023-01-03 10:03] VITALS: BP 137/69; PULSE 70; RESP 18; TEMP 36.4; O2SAT 95
[2023-01-03 11:00] VITALS: BP 114/64; PULSE 71; RESP 18; TEMP 36.3; O2SAT 94
[2023-01-03] MEDS: 0.9 % SODIUM CHLORIDE 250 ml IV (11:28)
--- NOTE | 2023-01-03 11:47 | ONC.NURNOTE ---
great IV access. santiago infusion well.
[2023-01-03 12:00] VITALS: BP 119/71; RESP 18; TEMP 36.3; O2SAT 94
[2023-01-03 12:30] VITALS: BP 125/83; PULSE 68; RESP 18; TEMP 36.4; O2SAT 94
--- NOTE | 2023-01-03 14:45 | ONC.NURNOTE ---
LS remain clear and Heartrate remains reg s1s2 before and after infusion.
[2023-01-10 09:29] LABS: Hematocrit 26.2 % (33.0-51.0); Mean Corpuscular HGB Conc 29 gm/dL (32-36); Mean Corpuscular Hemoglobin 31 pg (26-34); Mean Corpuscular Volume 107 fL (80-100); Red Blood Count 2.46 m/uL (4.00-5.20)
[2023-01-10 10:05] LABS: Hemoglobin* 7.7 gm/dL (12.0-16.0); Platelet Count* 1094 K/uL (140-440); White Blood Count* 59.63 K/uL (4.50-11.00)
[2023-01-10 10:06] LABS: Corrected White Blood Count 40.02 K/UL (4.50-11.00); Slide Review Reflex Yes
[2023-01-10 10:08] LABS: Slide Review Acceptable Review (Acceptable)
[2023-01-15 10:32] LABS: Hematocrit 25.6 % (33.0-51.0); Mean Corpuscular HGB Conc 29 gm/dL (32-36); Mean Corpuscular Hemoglobin 32 pg (26-34); Mean Corpuscular Volume 108 fL (80-100); RDW Coefficient of Variation % 34.9 % (11.5-15.5); Red Blood Count 2.38 m/uL (4.00-5.20)
[2023-01-15 11:19] LABS: Corrected White Blood Count 22.59 K/UL (4.50-11.00)
[2023-01-15 11:22] LABS: Slide Review Reflex Yes
[2023-01-15 11:24] LABS: Hemoglobin* 7.5 gm/dL (12.0-16.0); Platelet Count* 1184 K/uL (140-440); White Blood Count* 73.41 K/uL (4.50-11.00)
[2023-01-15 11:26] LABS: Slide Review Acceptable Review (Acceptable)
[2023-01-30 16:45] LABS: Hematocrit 24.1 % (33.0-51.0); Mean Corpuscular HGB Conc 29 gm/dL (32-36); Mean Corpuscular Hemoglobin 31 pg (26-34); Mean Corpuscular Volume 108 fL (80-100); RDW Coefficient of Variation % 36.3 % (11.5-15.5); Red Blood Count 2.24 m/uL (4.00-5.20)
[2023-01-30 16:47] LABS: Hemoglobin* 6.9 gm/dL (12.0-16.0); White Blood Count* 84.71 K/uL (4.50-11.00)
[2023-01-30 16:48] LABS: Platelet Count* 1097 K/uL (140-440)
[2023-01-30 16:54] LABS: Slide Review Reflex Yes
[2023-01-30 17:33] LABS: Slide Review Req Man Differential (Acceptable)
[2023-01-30 20:12] LABS: Total Cells Counted 200
[2023-01-30 20:38] LABS: Corrected White Blood Count 35.74 K/UL (4.50-11.00)
[2023-01-30 20:39] LABS: Giant Platelets Few; Large Platelets Moderate; Platelet Estimate Appears Increased (Adequate)
[2023-01-30 20:46] LABS: Anisocytosis Marked (Absent); Poikilocytosis Moderate (Absent)
[2023-01-30 20:47] LABS: Basophilic Stippling* Moderate (Absent); Hypochromasia Slight (Absent); Polychromasia Slight (Absent)
[2023-01-30 20:48] LABS: Macrocytosis Moderate (Absent); Microcytosis Moderate (Absent)
[2023-01-30 20:49] LABS: Ovalocytes Few; Schistocytes Few; Stomatocytes Few; Tear Drop Cells Few
[2023-01-31 11:10] VITALS: BP 112/73; PULSE 103; RESP 18; TEMP 36.6; O2SAT 96
[2023-01-31 13:03] VITALS: BP 117/63; PULSE 78; RESP 16; TEMP 36.6; O2SAT 91
[2023-01-31 13:24] VITALS: PULSE 79; RESP 16; TEMP 36.4; O2SAT 100
[2023-01-31 14:09] VITALS: BP 120/70; PULSE 72; RESP 16; TEMP 36.6; O2SAT 97
[2023-01-31 15:00] VITALS: BP 121/68; RESP 16; TEMP 36.7; O2SAT 98
[2023-01-31 15:34] VITALS: BP 132/82; PULSE 76; RESP 16; TEMP 36.6; O2SAT 97
[2023-02-10 09:49] LABS: Hematocrit 26.9 % (33.0-51.0); Mean Corpuscular HGB Conc 29 gm/dL (32-36); Mean Corpuscular Hemoglobin 30 pg (26-34); Mean Corpuscular Volume 105 fL (80-100); RDW Coefficient of Variation % 34.8 % (11.5-15.5); Red Blood Count 2.57 m/uL (4.00-5.20)
[2023-02-10 10:59] LABS: Hemoglobin* 7.7 gm/dL (12.0-16.0); Platelet Count* 1168 K/uL (140-440)
[2023-02-10 11:00] LABS: Slide Review Reflex Yes; White Blood Count* 41.66 K/uL (4.50-11.00)
[2023-02-10 11:08] LABS: Slide Review Req Man Differential (Acceptable)
[2023-02-10 11:09] LABS: Total Cells Counted 100
[2023-02-12 08:22] LABS: Platelet Estimate Appears Increased (Adequate)
[2023-02-12 08:23] LABS: Anisocytosis Marked (Absent); Hypochromasia Marked (Absent)
[2023-02-12 08:26] LABS: Ovalocytes Moderate; Stomatocytes Moderate; Target Cells Moderate
== END 2023-02-18 23:59 | disposition home or self-care (01) ==
LOC: CCIC 09:30
PROVIDERS: Internal Medicine Hematology & Oncology; PCP Internal Medicine; Referring Provider Emergency Medicine; Visit Provider Internal Medicine Medical Oncology
DX: D75.81 Myelofibrosis (principal)
CPT/HCPCS: 36415; 36430; 80053; 80076; 82565; 82728; 83615; 84132; 84295; 85025; 85045; 86850; 86900; 86901; 86922; J7050; P9016

== ENCOUNTER 2023-08-19 10:30 | Outpatient (RCR) | payer MEDICARE, MEDICAID, SELFPAY ==
[2023-02-20 09:58] LABS: Basophils Percent Auto 8.4 % (0.0-3.0); Eosinophils Percent Auto 0.6 % (0.0-7.0); Hematocrit 24.5 % (33.0-51.0); Immature Granulocytes Pct Auto 15.5 %; Lymphocytes Percent Auto 19.6 % (20-44); Mean Corpuscular HGB Conc 28 gm/dL (32-36); Mean Corpuscular Hemoglobin 29 pg (26-34); Mean Corpuscular Volume 103 fL (80-100); Monocytes Percent Auto 15.3 % (0.0-11.0); Neutrophils Percent Auto 40.6 % (42.0-72.0); RDW Coefficient of Variation % 35.5 % (11.5-15.5); Red Blood Count 2.38 m/uL (4.00-5.20)
--- NOTE | 2023-02-20 10:17 | ONC.NURNOTE ---
Critical hgb, platelets, and WBCs. faxed to [facility]. Ordered PRN 1 unit RBCs irradiated. Scheduled patient for 1030 tomorrow. Called patient to let her know of this plan. Patients , Gian, confirmed they will be here tomorrow at 1030.
[2023-02-20 10:25] LABS: Hemoglobin* 6.9 gm/dL (12.0-16.0); Platelet Count* 1304 K/uL (140-440); Slide Review Reflex Yes; White Blood Count* 22.38 K/uL (4.50-11.00)
[2023-02-20 10:27] LABS: Slide Review Acceptable Review (Acceptable)
[2023-02-21 10:34] VITALS: BP 134/83; PULSE 99; RESP 18; TEMP 36.8; O2SAT 92
[2023-02-21 11:11] VITALS: BP 134/83; RESP 16; TEMP 36.8; O2SAT 93
[2023-02-21 11:30] VITALS: BP 105/68; PULSE 83; RESP 16; TEMP 36.7; O2SAT 96
[2023-02-21 12:18] VITALS: BP 117/77; PULSE 80; RESP 16; TEMP 36.6; O2SAT 94
[2023-02-21 13:02] VITALS: BP 116/76; PULSE 85; RESP 18; TEMP 36.6; O2SAT 94
[2023-02-21 13:31] VITALS: BP 111/60; PULSE 83; RESP 18; TEMP 36.6; O2SAT 94
[2023-02-26 10:20] LABS: Basophils Percent Auto 9.5 % (0.0-3.0); Eosinophils Percent Auto 0.4 % (0.0-7.0); Lymphocytes Percent Auto 23.7 % (20-44); Mean Corpuscular HGB Conc 29 gm/dL (32-36); Mean Corpuscular Hemoglobin 29 pg (26-34); Mean Corpuscular Volume 100 fL (80-100); Neutrophils Percent Auto 51.4 % (42.0-72.0); RDW Coefficient of Variation % 32.7 % (11.5-15.5)
[2023-02-26 10:59] LABS: Hemoglobin* 7.8 gm/dL (12.0-16.0); White Blood Count* 81.82 K/uL (4.50-11.00)
[2023-02-26 11:00] LABS: Platelet Count* 1047 K/uL (140-440)
[2023-02-26 11:02] LABS: Corrected White Blood Count 45.46 K/UL (4.50-11.00)
[2023-02-26 11:13] LABS: Slide Review Reflex Yes
[2023-02-26 11:14] LABS: Slide Review Acceptable Review (Acceptable)
[2023-03-06 11:23] LABS: Hematocrit 27.3 % (33.0-51.0); Hemoglobin* 7.7 gm/dL (12.0-16.0); Mean Corpuscular HGB Conc 28 gm/dL (32-36); Mean Corpuscular Hemoglobin 28 pg (26-34); Mean Corpuscular Volume 100 fL (80-100); Red Blood Count 2.72 m/uL (4.00-5.20); White Blood Count* 32.66 K/uL (4.50-11.00)
[2023-03-06 11:24] LABS: Platelet Count* 1200 K/uL (140-440); RDW Coefficient of Variation % 33.8 % (11.5-15.5); Slide Review Reflex Yes
[2023-03-06 11:27] LABS: Slide Review Acceptable Review (Acceptable)
[2023-03-10 10:51] LABS: Hematocrit 25.4 % (33.0-51.0); Mean Corpuscular HGB Conc 28 gm/dL (32-36); Mean Corpuscular Hemoglobin 28 pg (26-34); Mean Corpuscular Volume 100 fL (80-100); RDW Coefficient of Variation % 34.4 % (11.5-15.5); Red Blood Count 2.55 m/uL (4.00-5.20)
[2023-03-10 13:35] LABS: Hemoglobin* 7.2 gm/dL (12.0-16.0); Platelet Count* 1154 K/uL (140-440); White Blood Count* 82.73 K/uL (4.50-11.00)
[2023-03-10 13:36] LABS: Slide Review Reflex Yes
[2023-03-10 13:40] LABS: Slide Review Acceptable Review (Acceptable)
--- NOTE | 2023-03-10 14:46 | PC.NURSE ---
Addendum entered and electronically signed by Karol Hansen, DANNY 03/10/23 17:36: Received call from Ms. Dobbs's Gian inquiring about blood results from today. Results given to him for Ms. Dobbs. He reports that she is feeling better and does not wish to go to the Emergency Department. He asks if she can have a unit of blood tomorrow. I shared with him that the strong recommendation from [place] and [place] is that Jennifer be seen in the Emergency Department to evaluate her visual/neuro symptoms due to risk for stroke or clotting. The hope had been that she would have been seen in the ED and then the determination about blood transfusion would be made. If she has any neuro changes tonight, she is instructed to be evaluated in the ED. If she does not and is stable, we will have to arrange for blood transfusion, but will need to determine this tomorrow am. Gian verbalizes understanding of these recommendations and was asked to share them caringly and with concern by me. Original Note: Pt present at [facility] today for labs. Pt's reports to RN's that Jennifer has been seeing spiders in her visual field today. He also shares that Jennifer has a headache 24/ which has been so bad it has caused her to cry. Gian reports that Jennifer is also a lot more fatigued that usual. RN's advised that Gian call pt's primary oncologist in [place] and/or go to an manager hair. After pt left, lab called with Hgb of 7.2. Computers down so unable to call pt or enter lab orders. Called pt's primary hematology office in [place] to report the above. Spoke with HELENE Fernandes. Dena reports that Jennifer should go to the ER. RN asked Dena to call pt Jennifer to provide direction. She will do so. [facility] RN will follow-up with Jennifer tomorrow re: whether or not blood transfusion is needed at [facility] or if it was done in [place].
[2023-03-11 11:51] VITALS: BP 132/82; PULSE 78; RESP 20; TEMP 37.1; O2SAT 94
[2023-03-11 12:07] VITALS: BP 100/65; PULSE 78; RESP 20; TEMP 36.5; O2SAT 94
[2023-03-11 12:52] VITALS: BP 120/75; PULSE 79; RESP 18; TEMP 36.7; O2SAT 95
[2023-03-11 13:24] VITALS: BP 118/74; PULSE 83; RESP 20; TEMP 36.7; O2SAT 94
[2023-03-24 10:52] LABS: Basophils Percent Auto 8.5 % (0.0-3.0); Eosinophils Percent Auto 0.3 % (0.0-7.0); Hematocrit 24.7 % (33.0-51.0); Lymphocytes Percent Auto 28.7 % (20-44); Mean Corpuscular HGB Conc 29 gm/dL (32-36); Mean Corpuscular Hemoglobin 29 pg (26-34); Mean Corpuscular Volume 100 fL (80-100); Monocytes Percent Auto 12.2 % (0.0-11.0); Neutrophils Percent Auto 50.3 % (42.0-72.0); RDW Coefficient of Variation % 34.4 % (11.5-15.5); Red Blood Count 2.47 m/uL (4.00-5.20)
[2023-03-24 11:38] LABS: Hemoglobin* 7.1 gm/dL (12.0-16.0); Platelet Count* 1130 K/uL (140-440); White Blood Count* 90.57 K/uL (4.50-11.00)
[2023-03-24 11:40] LABS: Corrected White Blood Count 27.03 K/UL (4.50-11.00); Slide Review Reflex No
--- NOTE | 2023-03-24 15:32 | ONC.NURNOTE ---
Labs faxed to Dr. Govea. Transfusion scheduled for tomorrow 03/25 per standing order.
[2023-03-25 09:37] VITALS: BP 125/72; PULSE 84; RESP 18; TEMP 36.7; O2SAT 94
[2023-03-25 10:33] VITALS: BP 125/72; PULSE 84; RESP 18; TEMP 36.7; O2SAT 94
[2023-03-25 10:50] VITALS: BP 114/61; PULSE 74; RESP 16; TEMP 36.4; O2SAT 93
[2023-03-25 11:35] VITALS: BP 118/80; PULSE 72; RESP 16; TEMP 36.2; O2SAT 94
[2023-03-25 12:38] VITALS: BP 115/71; PULSE 76; RESP 14; TEMP 37.2; O2SAT 94
[2023-03-25 12:59] VITALS: BP 110/53; PULSE 77; RESP 16; TEMP 36.5; O2SAT 93
[2023-03-31 09:57] LABS: Eosinophils Percent Auto 0.3 % (0.0-7.0); Hematocrit 28.5 % (33.0-51.0); Hemoglobin* 8.3 gm/dL (12.0-16.0); Mean Corpuscular HGB Conc 29 gm/dL (32-36); Mean Corpuscular Hemoglobin 29 pg (26-34); Mean Corpuscular Volume 99 fL (80-100); RDW Coefficient of Variation % 31.6 % (11.5-15.5); Red Blood Count 2.87 m/uL (4.00-5.20)
[2023-03-31 10:45] LABS: Corrected White Blood Count 22.13 K/UL (4.50-11.00); White Blood Count* 81.45 K/uL (4.50-11.00)
[2023-03-31 10:47] LABS: Platelet Count* 1131 K/uL (140-440); Slide Review Reflex Yes
[2023-03-31 10:48] LABS: Slide Review Acceptable Review (Acceptable)
[2023-04-08 09:33] LABS: Basophils Percent Auto 10.8 % (0.0-3.0); Eosinophils Percent Auto 0.5 % (0.0-7.0); Hematocrit 25.7 % (33.0-51.0); Lymphocytes Percent Auto 27.5 % (20-44); Mean Corpuscular HGB Conc 29 gm/dL (32-36); Mean Corpuscular Hemoglobin 28 pg (26-34); Mean Corpuscular Volume 97 fL (80-100); Monocytes Percent Auto 16.5 % (0.0-11.0); Neutrophils Percent Auto 44.7 % (42.0-72.0); Platelet Count* 997 K/uL (140-440); RDW Coefficient of Variation % 33.8 % (11.5-15.5); Red Blood Count 2.64 m/uL (4.00-5.20)
[2023-04-08 10:54] LABS: Slide Review Reflex Yes
[2023-04-08 10:55] LABS: Corrected White Blood Count 27.46 K/UL (4.50-11.00); White Blood Count* 74.42 K/uL (4.50-11.00)
[2023-04-08 10:56] LABS: Hemoglobin* 7.5 gm/dL (12.0-16.0)
[2023-04-08 10:58] LABS: Slide Review Acceptable Review (Acceptable)
[2023-04-10 09:18] LABS: Basophils Percent Auto 10.5 % (0.0-3.0); Eosinophils Percent Auto 0.4 % (0.0-7.0); Hematocrit 24.3 % (33.0-51.0); Immature Granulocytes Pct Auto 9.7 %; Lymphocytes Percent Auto 31.3 % (20-44); Mean Corpuscular HGB Conc 29 gm/dL (32-36); Mean Corpuscular Hemoglobin 29 pg (26-34); Mean Corpuscular Volume 99 fL (80-100); Monocytes Percent Auto 25.5 % (0.0-11.0); Neutrophils Percent Auto 22.6 % (42.0-72.0); Red Blood Count 2.46 m/uL (4.00-5.20)
[2023-04-10 10:32] LABS: Corrected White Blood Count 50.64 K/UL (4.50-11.00); Platelet Count* 1062 K/uL (140-440)
[2023-04-10 10:33] LABS: Hemoglobin* 7.1 gm/dL (12.0-16.0); Slide Review Reflex Yes; White Blood Count* 74.95 K/uL (4.50-11.00)
[2023-04-10 10:34] LABS: Slide Review Acceptable Review (Acceptable)
[2023-04-11 13:32] VITALS: BP 120/86; PULSE 99; RESP 16; TEMP 36.8; O2SAT 95
[2023-04-11 13:51] VITALS: BP 117/76; PULSE 76; RESP 18; TEMP 36.8; O2SAT 94
[2023-04-11 14:36] VITALS: BP 123/69; PULSE 79; RESP 16; TEMP 36.9; O2SAT 96
[2023-04-11 15:38] VITALS: BP 116/72; PULSE 75; RESP 18; TEMP 36.6; O2SAT 95
[2023-04-18 10:25] LABS: Basophils Percent Auto 8.7 % (0.0-3.0); Eosinophils Percent Auto 0.5 % (0.0-7.0); Hemoglobin* 8.2 gm/dL (12.0-16.0); Immature Granulocytes Pct Auto 8.9 %; Mean Corpuscular HGB Conc 29 gm/dL (32-36); Mean Corpuscular Hemoglobin 29 pg (26-34); Mean Corpuscular Volume 100 fL (80-100); Monocytes Percent Auto 17.9 % (0.0-11.0); RDW Coefficient of Variation % 30.2 % (11.5-15.5); Red Blood Count 2.79 m/uL (4.00-5.20)
[2023-04-18 11:15] LABS: White Blood Count* 58.92 K/uL (4.50-11.00)
[2023-04-18 11:16] LABS: Platelet Count* 1132 K/uL (140-440); Slide Review Reflex Yes
[2023-04-18 11:20] LABS: Corrected White Blood Count 37.77 K/UL (4.50-11.00)
[2023-04-18 11:22] LABS: Slide Review Acceptable Review (Acceptable)
--- NOTE | 2023-04-18 11:50 | ONC.NURNOTE ---
Lab results noted and called to Gian per parameters- no transfusion indicated results faxed to Dr Sevilla at [facility]
[2023-04-30 09:57] LABS: Basophils Percent Auto 7.2 % (0.0-3.0); Eosinophils Percent Auto 0.5 % (0.0-7.0); Hematocrit 26.2 % (33.0-51.0); Immature Granulocytes Pct Auto 5.3 %; Lymphocytes Percent Auto 23.6 % (20-44); Mean Corpuscular HGB Conc 28 gm/dL (32-36); Mean Corpuscular Hemoglobin 29 pg (26-34); Mean Corpuscular Volume 101 fL (80-100); Neutrophils Percent Auto 51.4 % (42.0-72.0); RDW Coefficient of Variation % 31.8 % (11.5-15.5); Red Blood Count 2.59 m/uL (4.00-5.20)
[2023-04-30 10:46] LABS: White Blood Count* 71.48 K/uL (4.50-11.00)
[2023-04-30 10:47] LABS: Hemoglobin* 7.4 gm/dL (12.0-16.0); Platelet Count* 1047 K/uL (140-440)
[2023-04-30 10:48] LABS: Corrected White Blood Count 35.04 K/UL (4.50-11.00); Slide Review Reflex Yes
[2023-04-30 10:49] LABS: Slide Review Acceptable Review (Acceptable)
[2023-05-01 10:48] VITALS: BP 124/77; PULSE 86; RESP 16; TEMP 36.3; O2SAT 86
[2023-05-01 11:33] VITALS: BP 124/77; PULSE 86; RESP 18; TEMP 36.3; O2SAT 95
[2023-05-01 11:55] VITALS: BP 125/68; PULSE 77; RESP 18; TEMP 36.6; O2SAT 95
[2023-05-01 12:40] VITALS: BP 135/83; PULSE 75; RESP 18; TEMP 36.6; O2SAT 95
[2023-05-01 13:40] VITALS: BP 124/77; PULSE 75; RESP 18; TEMP 36.1; O2SAT 94
[2023-05-01] MEDS: 0.9 % SODIUM CHLORIDE 250 ml IV (15:00)
[2023-05-14 10:11] LABS: Basophils Percent Auto 7.8 % (0.0-3.0); Eosinophils Percent Auto 0.5 % (0.0-7.0); Hematocrit 27.3 % (33.0-51.0); Immature Granulocytes Pct Auto 10.2 %; Lymphocytes Percent Auto 23.4 % (20-44); Mean Corpuscular HGB Conc 29 gm/dL (32-36); Mean Corpuscular Hemoglobin 29 pg (26-34); Mean Corpuscular Volume 100 fL (80-100); Monocytes Percent Auto 15.7 % (0.0-11.0); Neutrophils Percent Auto 42.4 % (42.0-72.0); RDW Coefficient of Variation % 30.8 % (11.5-15.5); Red Blood Count 2.72 m/uL (4.00-5.20)
[2023-05-14 11:08] LABS: Slide Review Reflex Yes
[2023-05-14 11:10] LABS: Corrected White Blood Count 29.66 K/UL (4.50-11.00); White Blood Count* 61.09 K/uL (4.50-11.00)
[2023-05-14 11:11] LABS: Platelet Count* 1078 K/uL (140-440); Slide Review Acceptable Review (Acceptable)
--- NOTE | 2023-05-14 11:58 | ONC.NURNOTE ---
Lab results called to spouse, no transfusion needed this week. Labs faxed to manager line in [place].
[2023-05-21 10:29] LABS: Basophils Percent Auto 12.2 % (0.0-3.0); Eosinophils Percent Auto 0.4 % (0.0-7.0); Hematocrit 24.9 % (33.0-51.0); Immature Granulocytes Pct Auto 8.9 %; Lymphocytes Percent Auto 23.9 % (20-44); Mean Corpuscular HGB Conc 30 gm/dL (32-36); Mean Corpuscular Hemoglobin 30 pg (26-34); Mean Corpuscular Volume 99 fL (80-100); Monocytes Percent Auto 20.4 % (0.0-11.0); Neutrophils Percent Auto 34.2 % (42.0-72.0); RDW Coefficient of Variation % 30.9 % (11.5-15.5); Red Blood Count 2.51 m/uL (4.00-5.20)
[2023-05-21 11:41] LABS: Hemoglobin* 7.5 gm/dL (12.0-16.0); White Blood Count* 80.78 K/uL (4.50-11.00)
[2023-05-21 11:42] LABS: Platelet Count* 1145 K/uL (140-440)
[2023-05-21 11:44] LABS: Corrected White Blood Count 30.02 K/UL (4.50-11.00)
[2023-05-21 11:45] LABS: Slide Review Reflex Yes
[2023-05-21 11:47] LABS: Slide Review Acceptable Review (Acceptable)
[2023-05-22 12:44] VITALS: BP 135/82; PULSE 93; RESP 17; TEMP 36.7; O2SAT 92
[2023-05-22 13:15] VITALS: BP 135/82; PULSE 93; RESP 17; TEMP 36.6; O2SAT 92
[2023-05-22 13:33] VITALS: BP 114/71; PULSE 80; RESP 16; TEMP 36.9; O2SAT 93
[2023-05-22 14:18] VITALS: BP 113/73; PULSE 80; RESP 18; TEMP 37.1; O2SAT 91
[2023-05-22 15:09] VITALS: BP 119/50; PULSE 82; RESP 16; TEMP 36.6; O2SAT 95
[2023-05-22 15:39] VITALS: BP 119/74; PULSE 78; RESP 16; TEMP 36.4; O2SAT 95
[2023-06-03 10:35] LABS: Basophils Percent Auto 10.5 % (0.0-3.0); Eosinophils Percent Auto 0.4 % (0.0-7.0); Hematocrit 23.2 % (33.0-51.0); Immature Granulocytes Pct Auto 8.7 %; Lymphocytes Percent Auto 20.4 % (20-44); Mean Corpuscular HGB Conc 29 gm/dL (32-36); Mean Corpuscular Hemoglobin 28 pg (26-34); Mean Corpuscular Volume 98 fL (80-100); Monocytes Percent Auto 11.7 % (0.0-11.0); Neutrophils Percent Auto 48.3 % (42.0-72.0); RDW Coefficient of Variation % 30.5 % (11.5-15.5); Red Blood Count 2.38 m/uL (4.00-5.20)
[2023-06-03 12:23] LABS: Hemoglobin* 6.7 gm/dL (12.0-16.0); Platelet Count* 1023 K/uL (140-440)
[2023-06-03 12:24] LABS: Slide Review Reflex Yes; White Blood Count* 28.45 K/uL (4.50-11.00)
[2023-06-03 12:25] LABS: Slide Review Acceptable Review (Acceptable)
[2023-06-04 09:06] VITALS: BP 128/81; PULSE 112; RESP 16; TEMP 36.6; O2SAT 91
[2023-06-04 10:03] VITALS: BP 128/81; PULSE 112; RESP 16; TEMP 36.6; O2SAT 100
[2023-06-04 10:21] VITALS: BP 105/70; PULSE 85; RESP 16; TEMP 37.1; O2SAT 92
[2023-06-04 11:06] VITALS: BP 109/69; PULSE 85; RESP 18; TEMP 37.1; O2SAT 92
[2023-06-04 12:00] VITALS: BP 133/75; PULSE 89; RESP 16; TEMP 37.3; O2SAT 93
[2023-06-04 12:30] VITALS: BP 130/81; PULSE 78; RESP 18; TEMP 36.6; O2SAT 94
[2023-06-09 09:58] LABS: Eosinophils Percent Auto 0.4 % (0.0-7.0); Hematocrit 26.8 % (33.0-51.0); Lymphocytes Percent Auto 18.8 % (20-44); Mean Corpuscular HGB Conc 29 gm/dL (32-36); Mean Corpuscular Hemoglobin 28 pg (26-34); Mean Corpuscular Volume 97 fL (80-100); Neutrophils Percent Auto 58.8 % (42.0-72.0); RDW Coefficient of Variation % 28.9 % (11.5-15.5); Red Blood Count 2.76 m/uL (4.00-5.20)
[2023-06-09 10:50] LABS: Hemoglobin* 7.8 gm/dL (12.0-16.0)
[2023-06-09 10:51] LABS: Platelet Count* 1104 K/uL (140-440); White Blood Count* 35.96 K/uL (4.50-11.00)
[2023-06-09 10:52] LABS: Slide Review Reflex Yes
[2023-06-09 10:53] LABS: Slide Review Acceptable Review (Acceptable)
--- NOTE | 2023-06-09 11:26 | ONC.NURNOTE ---
pt called with lab results. Cbc with diff results faxed to [facility].
[2023-06-12 09:19] LABS: Hematocrit 24.1 % (33.0-51.0); Mean Corpuscular HGB Conc 29 gm/dL (32-36); Mean Corpuscular Hemoglobin 28 pg (26-34); Mean Corpuscular Volume 98 fL (80-100); Platelet Count* 962 K/uL (140-440); RDW Coefficient of Variation % 30.1 % (11.5-15.5); Red Blood Count 2.46 m/uL (4.00-5.20)
[2023-06-12 10:05] LABS: White Blood Count* 24.19 K/uL (4.50-11.00)
[2023-06-12 10:08] LABS: Slide Review Reflex Yes
[2023-06-12 10:09] LABS: Hemoglobin* 6.9 gm/dL (12.0-16.0)
[2023-06-12 10:11] LABS: Slide Review Acceptable Review (Acceptable)
[2023-06-13 09:30] VITALS: BP 107/56; PULSE 89; RESP 18; TEMP 36.1; O2SAT 94
[2023-06-13 10:41] VITALS: BP 107/56; PULSE 89; RESP 18; TEMP 36.1
[2023-06-13 11:50] VITALS: BP 116/75; PULSE 80; RESP 18; TEMP 36.1; O2SAT 95
[2023-06-13 12:42] VITALS: BP 130/80; PULSE 80; RESP 18; TEMP 36.1; O2SAT 94
[2023-06-19 09:26] LABS: Basophils Percent Auto 8.8 % (0.0-3.0); Eosinophils Percent Auto 0.5 % (0.0-7.0); Hematocrit 27.4 % (33.0-51.0); Immature Granulocytes Pct Auto 7.5 %; Lymphocytes Percent Auto 17.5 % (20-44); Mean Corpuscular HGB Conc 29 gm/dL (32-36); Mean Corpuscular Hemoglobin 28 pg (26-34); Mean Corpuscular Volume 98 fL (80-100); Monocytes Percent Auto 12.8 % (0.0-11.0); Neutrophils Percent Auto 52.9 % (42.0-72.0); RDW Coefficient of Variation % 26.9 % (11.5-15.5); Red Blood Count 2.81 m/uL (4.00-5.20)
[2023-06-19 10:14] LABS: Corrected White Blood Count 28.89 K/UL (4.50-11.00); Hemoglobin* 7.9 gm/dL (12.0-16.0)
[2023-06-19 10:15] LABS: Platelet Count* 1100 K/uL (140-440); Slide Review Reflex Yes; White Blood Count* 67.02 K/uL (4.50-11.00)
[2023-06-19 10:17] LABS: Slide Review Acceptable Review (Acceptable)
[2023-06-24 09:28] LABS: Basophils Percent Auto 8.1 % (0.0-3.0); Eosinophils Percent Auto 0.3 % (0.0-7.0); Hematocrit 25.5 % (33.0-51.0); Lymphocytes Percent Auto 20.2 % (20-44); Mean Corpuscular HGB Conc 29 gm/dL (32-36); Mean Corpuscular Hemoglobin 28 pg (26-34); Mean Corpuscular Volume 97 fL (80-100); Monocytes Percent Auto 11.3 % (0.0-11.0); Neutrophils Percent Auto 60.1 % (42.0-72.0); Platelet Count* 982 K/uL (140-440); RDW Coefficient of Variation % 28.5 % (11.5-15.5); Red Blood Count 2.62 m/uL (4.00-5.20)
[2023-06-24 10:30] LABS: Corrected White Blood Count 25.05 K/UL (4.50-11.00); Hemoglobin* 7.4 gm/dL (12.0-16.0); Slide Review Reflex Yes; White Blood Count* 61.62 K/uL (4.50-11.00)
[2023-06-24 10:32] LABS: Slide Review Acceptable Review (Acceptable)
[2023-06-24 15:35] VITALS: BP 115/72; PULSE 84; RESP 16; TEMP 36.8; O2SAT 95
[2023-06-26 09:13] VITALS: BP 115/58; PULSE 95; RESP 16; TEMP 36.4; O2SAT 96
[2023-06-26 10:02] VITALS: BP 115/58; PULSE 95; RESP 16; TEMP 36.4; O2SAT 96
[2023-06-26 10:16] VITALS: BP 135/76; PULSE 95; RESP 16; TEMP 36.6; O2SAT 96
[2023-06-26 10:18] VITALS: BP 115/74; PULSE 74; RESP 16; TEMP 36.6; O2SAT 92
[2023-06-26 12:03] VITALS: BP 108/69; PULSE 81; RESP 16; TEMP 36.8; O2SAT 95
[2023-06-26 12:05] VITALS: BP 114/70; PULSE 82; RESP 16; TEMP 36.6; O2SAT 95
[2023-07-09 10:58] LABS: Hematocrit 24.6 % (33.0-51.0); Mean Corpuscular HGB Conc 29 gm/dL (32-36); Mean Corpuscular Hemoglobin 29 pg (26-34); Mean Corpuscular Volume 98 fL (80-100); Platelet Count* 964 K/uL (140-440); RDW Coefficient of Variation % 25.9 % (11.5-15.5); Red Blood Count 2.52 m/uL (4.00-5.20)
[2023-07-09 11:48] LABS: Corrected White Blood Count 21.11 K/UL (4.50-11.00); Hemoglobin* 7.2 gm/dL (12.0-16.0); White Blood Count* 51.51 K/uL (4.50-11.00)
[2023-07-09 11:49] LABS: Slide Review Reflex No
[2023-07-10] VITALS (7 sets, daily range): BP systolic 112–131; BP diastolic 61–91; PULSE 69–84; RESP 16–18; TEMP 36.1–36.8; O2SAT 94–98
[2023-07-16 10:03] LABS: Basophils Percent Auto 8.7 % (0.0-3.0); Eosinophils Percent Auto 0.4 % (0.0-7.0); Hemoglobin* 8.1 gm/dL (12.0-16.0); Immature Granulocytes Pct Auto 10.8 %; Lymphocytes Percent Auto 20.5 % (20-44); Mean Corpuscular HGB Conc 30 gm/dL (32-36); Mean Corpuscular Hemoglobin 28 pg (26-34); Mean Corpuscular Volume 94 fL (80-100); Monocytes Percent Auto 13.8 % (0.0-11.0); Neutrophils Percent Auto 45.8 % (42.0-72.0); Platelet Count* 761 K/uL (140-440); RDW Coefficient of Variation % 24.5 % (11.5-15.5); Red Blood Count 2.86 m/uL (4.00-5.20)
[2023-07-16 10:45] LABS: White Blood Count* 47.38 K/uL (4.50-11.00)
[2023-07-16 10:46] LABS: Corrected White Blood Count 23.11 K/UL (4.50-11.00); Slide Review Reflex Yes
[2023-07-16 10:48] LABS: Slide Review Acceptable Review (Acceptable)
--- NOTE | 2023-07-16 10:59 | ONC.NURNOTE ---
labs called to patient. no
[2023-07-23 10:22] LABS: Mean Corpuscular HGB Conc 30 gm/dL (32-36); Mean Corpuscular Hemoglobin 28 pg (26-34); Mean Corpuscular Volume 94 fL (80-100); Platelet Count* 880 K/uL (140-440); RDW Coefficient of Variation % 25.4 % (11.5-15.5); Red Blood Count 2.66 m/uL (4.00-5.20)
[2023-07-23 10:40] VITALS: BP 101/55; PULSE 74; RESP 18; TEMP 36.6; O2SAT 92
[2023-07-23 10:57] LABS: Hemoglobin* 7.4 gm/dL (12.0-16.0); White Blood Count* 22.14 K/uL (4.50-11.00)
[2023-07-23 10:58] LABS: Slide Review Reflex Yes
[2023-07-23 10:59] LABS: Slide Review Acceptable Review (Acceptable)
[2023-07-24 09:00] VITALS: BP 99/65; PULSE 109; RESP 18; TEMP 36.8; O2SAT 94
[2023-07-24 10:00] VITALS: BP 99/65; PULSE 109; RESP 18; TEMP 36.8; O2SAT 94
[2023-07-24 11:23] VITALS: BP 112/73; PULSE 78; RESP 18; O2SAT 96
[2023-07-24 12:21] VITALS: BP 98/51; PULSE 79; RESP 18; O2SAT 94
[2023-07-24 12:50] VITALS: BP 101/53; PULSE 73; RESP 18; TEMP 36.5; O2SAT 95
[2023-07-31 10:10] LABS: Basophils Percent Auto 6.3 % (0.0-3.0); Eosinophils Percent Auto 0.4 % (0.0-7.0); Hematocrit 25.5 % (33.0-51.0); Immature Granulocytes Pct Auto 2.2 %; Lymphocytes Percent Auto 29.5 % (20-44); Mean Corpuscular HGB Conc 30 gm/dL (32-36); Mean Corpuscular Hemoglobin 29 pg (26-34); Mean Corpuscular Volume 95 fL (80-100); Monocytes Percent Auto 6.4 % (0.0-11.0); Neutrophils Percent Auto 55.2 % (42.0-72.0); Platelet Count* 745 K/uL (140-440); RDW Coefficient of Variation % 24.6 % (11.5-15.5); Red Blood Count 2.68 m/uL (4.00-5.20)
[2023-07-31 10:18] LABS: Hemoglobin* 7.7 gm/dL (12.0-16.0)
[2023-07-31 10:45] LABS: Corrected White Blood Count 15.38 K/UL (4.50-11.00)
[2023-07-31 10:46] LABS: Slide Review Reflex Yes
[2023-07-31 10:49] LABS: White Blood Count* 39.69 K/uL (4.50-11.00)
[2023-07-31 10:51] LABS: Slide Review Acceptable Review (Acceptable)
[2023-08-04 09:27] LABS: Basophils Percent Auto 9.2 % (0.0-3.0); Eosinophils Percent Auto 0.4 % (0.0-7.0); Hematocrit 27.3 % (33.0-51.0); Hemoglobin* 8.1 gm/dL (12.0-16.0); Immature Granulocytes Pct Auto 7.8 %; Lymphocytes Percent Auto 25.5 % (20-44); Mean Corpuscular HGB Conc 30 gm/dL (32-36); Mean Corpuscular Hemoglobin 28 pg (26-34); Mean Corpuscular Volume 95 fL (80-100); Monocytes Percent Auto 12.3 % (0.0-11.0); Neutrophils Percent Auto 44.8 % (42.0-72.0); Platelet Count* 910 K/uL (140-440); RDW Coefficient of Variation % 25.4 % (11.5-15.5); Red Blood Count 2.89 m/uL (4.00-5.20)
[2023-08-04 09:44] LABS: Slide Review Reflex Yes; White Blood Count* 45.08 K/uL (4.50-11.00)
[2023-08-04 09:45] LABS: Slide Review Acceptable Review (Acceptable)
--- NOTE | 2023-08-04 09:51 | ONC.NURNOTE ---
Lab results given to patients , Gian, over the phone. All questions answered. Patient will call when they need another blood draw.
--- NOTE | 2023-08-04 10:53 | ONC.NURNOTE ---
Faxed results to Dr. Govea at [facility]. Requested new standing orders as well. Called to confirm they got the fax. They had no received it yet but they are watching for it and will call with questions.
[2023-08-11 10:29] LABS: Hematocrit 23.3 % (33.0-51.0); Mean Corpuscular HGB Conc 29 gm/dL (32-36); Mean Corpuscular Hemoglobin 28 pg (26-34); Mean Corpuscular Volume 97 fL (80-100); Platelet Count* 844 K/uL (140-440); Red Blood Count 2.41 m/uL (4.00-5.20)
[2023-08-11 10:58] LABS: Hemoglobin* 6.8 gm/dL (12.0-16.0)
[2023-08-11 10:59] LABS: Slide Review Reflex Yes; White Blood Count* 27.38 K/uL (4.50-11.00)
[2023-08-11 11:01] LABS: Slide Review Acceptable Review (Acceptable)
[2023-08-12 08:56] VITALS: BP 110/63; PULSE 84; RESP 20; TEMP 36.4; O2SAT 94
[2023-08-12 09:19] VITALS: BP 110/63; PULSE 84; RESP 20; TEMP 36.4; O2SAT 94
[2023-08-12 09:37] VITALS: BP 110/66; PULSE 67; RESP 18; TEMP 36.5; O2SAT 99
[2023-08-12 10:22] VITALS: BP 124/77; PULSE 71; RESP 16; TEMP 36.3; O2SAT 94
[2023-08-12 11:25] VITALS: BP 127/63; PULSE 72; RESP 16; TEMP 36.3; O2SAT 95
[2023-08-12 11:55] VITALS: BP 128/84; PULSE 64; RESP 16; TEMP 36.2; O2SAT 96
[2023-08-18 10:10] LABS: Basophils Percent Auto 10.1 % (0.0-3.0); Eosinophils Percent Auto 0.3 % (0.0-7.0); Immature Granulocytes Pct Auto 9.9 %; Lymphocytes Percent Auto 33.8 % (20-44); Mean Corpuscular HGB Conc 29 gm/dL (32-36); Mean Corpuscular Hemoglobin 28 pg (26-34); Mean Corpuscular Volume 95 fL (80-100); Monocytes Percent Auto 9.8 % (0.0-11.0); Neutrophils Percent Auto 36.1 % (42.0-72.0); RDW Coefficient of Variation % 26.4 % (11.5-15.5)
[2023-08-18 10:27] LABS: Chloride* 106 mmol/L (96-114); Potassium* 3.9 mmol/L (3.6-5.1); Sodium* 140 mmol/L (135-149)
[2023-08-18 10:30] LABS: Anion Gap 6 mEq/L (7-15); Carbon Dioxide* 28 mmol/L (20-32); Creatinine* 0.9 mg/dL (0.5-1.5); Estimated Glomerular Filt Rate 76 ml/min
[2023-08-18 10:31] LABS: Blood Urea Nitrogen* 19 mg/dL (7-30); Calcium* 9.2 mg/dL (8.4-10.6); Glucose* 122 mg/dL (60-115)
[2023-08-18 11:07] LABS: Hematocrit 25.2 % (33.0-51.0); Red Blood Count 2.66 m/uL (4.00-5.20)
[2023-08-18 11:09] LABS: Corrected White Blood Count 23.55 K/UL (4.50-11.00)
[2023-08-18 11:10] LABS: Slide Review Reflex Yes
[2023-08-18 11:11] LABS: Hemoglobin* 7.4 gm/dL (12.0-16.0); White Blood Count* 63.59 K/uL (4.50-11.00)
[2023-08-18 11:12] LABS: Platelet Count* 1038 K/uL (140-440)
[2023-08-18 11:13] LABS: Slide Review Acceptable Review (Acceptable)
[2023-08-19 11:16] VITALS: BP 114/55; PULSE 106; RESP 20; TEMP 36.6; O2SAT 94
[2023-08-19 11:33] VITALS: BP 130/69; PULSE 89; RESP 18; TEMP 36.9; O2SAT 94
[2023-08-19 12:50] VITALS: BP 136/83; PULSE 93; RESP 18; TEMP 36.4; O2SAT 90
[2023-08-19 13:18] VITALS: BP 131/67; PULSE 94; RESP 16; TEMP 37.1; O2SAT 92
== END 2023-08-19 23:59 | disposition home or self-care (01) ==
LOC: CCIC 10:30
PROVIDERS: Clinical Nurse Specialist; Internal Medicine Medical Oncology; PCP Internal Medicine; Referring Provider Internal Medicine; Visit Provider Internal Medicine Hematology & Oncology
DX: D75.81 Myelofibrosis (principal); D46.9 Myelodysplastic syndrome, unspecified; D64.9 Anemia, unspecified
CPT/HCPCS: 36415; 36430; 80048; 85025; 86850; 86900; 86901; 86922; J7050; P9016

== ENCOUNTER 2023-08-21 10:16 | Outpatient (CLI) | payer MEDICARE, MEDICAID, SELFPAY ==
--- OUTSIDE RECORDS SUMMARY | 2023-08-21 10:20 | XMS_ITS | Encounter Summary ---
Author Name Unknown Organization [facility] Address [address] [place] [address] Care Team Providers Care Case Investigator Name Role Phone Ab Patterson MD Primary Care Provider [phone]- [phone] Encounter Details Date Type Department Care Team Description 12/13/2015 Outside Hospital External to [facility], Provider HISTORY AND PHYSICAL Social History Tobacco Use Types Packs/Day Years Used Date Smoking Tobacco: Never Assessed Sex and Gender Information Value Date Recorded Sex Assigned at Not on file Gender Identity Not on file Sexual Orientation Not on file documented as of this encounter Plan of Treatment Not on file documented as of this encounter Visit Diagnoses Not on filedocumented in this encounter Care Teams Case Investigator Relationship Specialty [place] [address] [place] [address] PCP - General Family Practice 11/30/15 documented as of this encounter
--- OUTSIDE RECORDS SUMMARY | 2023-08-21 10:20 | XMS_ITS | Encounter Summary ---
Author Name Unknown Organization [facility] Address [address] [place] [address] Care Team Providers Care Mortgage Processing Clerk Name Role Phone Ab Patterson MD Primary Care Provider [phone] Encounter Details Date Type Department Care Team Description 05/10/2016 Scanned History External to Transferred Record, Provider [facility] Social History Tobacco Use Types Packs/Day Years Used Date Smoking Tobacco: Never Assessed Sex and Gender Information Value Date Recorded Sex Assigned at Not on file Gender Identity Not on file Sexual Orientation Not on file documented as of this encounter Plan of Treatment Not on file documented as of this encounter Visit Diagnoses Not on filedocumented in this encounter Care Teams Mortgage Processing Clerk Relationship Specialty [place] [address] [place] [address] PCP - General Family Practice 11/30/15 documented as of this encounter
--- OUTSIDE RECORDS SUMMARY | 2023-08-21 10:20 | XMS_ITS | Encounter Summary ---
Author Name Unknown Organization [facility] Address [address] [place] [address] Care Team Providers Care Menu Planner Name Role Phone No Ref-Primary, Physician Primary Care Provider Candida Epps MD Unavailable Shala Bell RN Unavailable Unavailable Ronaldo Cheatham MD Unavailable [phone] Candida Epps MD Unavailable Boaz Garcia MD Unavailable [phone] Rodrick Turner MD Unavailable Reason for Visit * Reason Onset Date Comments Appointment 07/02/2019 Encounter Details Date Type Department Care Team (Late st Contact Info) Description 07/02/[address] [address] Barbara Caballero MD [address] [place] [address] Appointment Social History Tobacco Use Types Packs/Day Years Used Date Smoking Tobacco: Former Cigarettes Q uit: 09/27/2012 Smokeless Tobacco: Never Comments:quit September 27, 2012 Alcohol Use Standard Drinks/Week Comments Yes 0 (1 standard drink = 0.6 oz pur e alcohol) 1 drink per week PHQ-2 Answer Date Recorded PHQ-2 Score 2 02/04/2019 Sex and Gender Information Value Date Recorded Sex Assigned at Not on file Gender Identity Not on file Sexual Orientation Not on file documented as of this encounter Miscellaneous Notes * Telephone Encounter - Reason, Winter Hubbard - 07/02/2019 10:57 AM CST Reason for call: Other Patient called regarding (reason for call): appointment Additional comments: per Zeinab from [place] [facility] , the patient needs to be seen sooner because the 'cardiac workup was expedited and the patient needs the test before being cleared for surgery. Roxane has faxed over notes in regards to the patient. Phone number to reach patient: Home number on file [phone] (home) Best Time: anytime Can we leave a detailed message on this number? 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 encounter Plan of Treatment Not on file documented as of this encounter Visit Diagnoses Not on filedocumented in this encounter Care Teams Menu Planner Relationship Specialty Start Date End Date No Ref-Primary, Physician PCP - General 09/30/17 Candida Epps MD Internal Medicine 01/15/19 Shala Bell, HELENE Specialty Trapper Animal Hematology & Oncology 01/15/19 07/23/21 Ronaldo Cheatham MD [address] [facility] [address] [place], [place] [address] Assigned Heart and Vascular Provider 05/05/20 09/09/20 Candida Epps MD [facility] [place] [address] [place] [address] Assigned Cancer Care Provider 05/05/20 07/22/20 Boaz Garcia MD [address] [facility] [address] [place], [place] [address] Assigned Surgical Provider 05/05/20 01/25/21 Rodrick Turner MD [address] [place] [address] Assigned Sleep Provider 05/05/20 documented as of this encounter
--- OUTSIDE RECORDS SUMMARY | 2023-08-21 10:20 | XMS_ITS | Referral Summary ---
Author Name Unknown Organization [facility] Address [address] [place] [address] Care Team Providers Care Cone Winder Name Role Phone No Ref-Primary, Physician Primary Care Provider Candida Epps MD Unavailable Allergies Active Allergy Reactions Criticality Noted Date Comments Latex 10/15/2010 PN: Converted from LW Latex Sensitivity Flag Medications Medication Sig Dispensed Refills Start Date End Date Status oxyCODONE (ROXICODONE) 5 MG immediate release tablet Take 1-2 tablets (5-10 mg) by mouth every 6 hours as needed for moderate to severe pain 30 tablet 0 08/28/2015 Active senna-docusate (SENOKOT-S;PERICOLAC E) 8.6-50 MG per tablet Take 1 tablet by mouth 2 times daily 60 tablet 1 08/28/2015 Active MORPHINE SULFATE PO Take 60 mg by mouth 2 times daily (Takes 15 mg extra BID if not working) 0 Active LORAZEPAM PO Take 0.5 mg by mouth every 6 hours as needed for anxiety 0 Active ibuprofen (ADVIL/MOTRIN) 200 MG tablet Take 200 mg by mouth every 6 hours as needed for mild pain (headaches) 0 Active Sodium Bicarbonate-Citric Acid (VASYL-SELTZER HEARTBURN PO) Take 1 tablet by mouth 0 Active sodium-potassium bicarbonate-citric acid (VASYL-SELTZER GOLD) [id number] MG TBEF solu-tab Take 1 tablet by mouth 0 Active folic acid (FOLVITE) 1 MG tablet 0 07/01/2019 Active Active Problems Problem Noted Date Diagnosed Date Myeloproliferative disorder 02/10/2017 Immunizations Name Administration Dates Next Due HIB (PRP-T) 02/04/2019(Deferred: Contraindication - not available in clinic.) Meningococcal (Menomune??) 02/04/2019(De ferred: Contraindication - not available in clinic) Pneumococcal 23 valent 02/04/2019(Deferr ed: Contraindication - not available in clinic) Social History Tobacco Use Types Packs/Day Years Used Date Smoking Tobacco: Former Cigarettes Q uit: 09/27/2012 Smokeless Tobacco: Never Comments:quit September 27, 2012 Alcohol Use Standard Drinks/Week Comments Yes 0 (1 standard drink = 0.6 oz pur e alcohol) 1 drink per week PHQ-2 Answer Date Recorded PHQ-2 Score 2 07/29/2019 Adolescent Education Answer Date Record ed Getting School Help Needed Not on file 04/20 Sex and Gender Information Value Date Recorded Sex Assigned at Not on file Gender Identity Not on file Sexual Orientation Not on file Last Filed Vital Signs Vital Sign Reading Time Taken Comments Blood Pressure 118/72 05/29/2020 2:20 PM PRE CODER Pulse 63 05/29/2020 2:20 PM PRE CODER Temperature 36.4 ??C (97.6 ??F) 05/29/2020 2:20 PM CS T Respiratory Rate 16 05/29/2020 2:20 PM PRE CODER Oxygen Saturation 98% 05/29/2020 1:09 PM PRE CODER Inhaled Oxygen Concentration - - Weight 92.5 kg (203 lb 14.4 oz) 07/29/2019 9:51 AM PRE CODER Height 169.5 cm (5' 6.75) 07/29/2019 9:51 AM CS T Body Mass Index 32.17 07/29/2019 9:51 AM PRE CODER Plan of Treatment Not on file Care Teams Cone Winder Relationship Specialty Start Date End Date No Ref-Primary, Physician PCP - General 09/30/17 Candida Epps MD Internal Medicine 01/15/19
--- OUTSIDE RECORDS SUMMARY | 2023-08-21 10:20 | XMS_ITS | Clinical Summary ---
Author Name Unknown Organization [facility] Address [address] [place] [address] Care Team Providers Care Cable Braider Name Role Phone No Ref-Primary, Physician Primary [...] 0 Active sodium-potassium bicarbonate-citric acid (VASYL-SELTZER GOLD) [phone] MG TBEF solu-tab Take 1 tablet by [...] Comments Blood Pressure 118/72 05/29/2020 2:20 PM LEAD APPLIER Pulse 63 05/29/2020 2:20 PM LEAD APPLIER Temperature 36.4 ??C (97.6 ??F) 05/29/2020 2:20 PM CS T Respiratory Rate 16 05/29/2020 2:20 PM LEAD APPLIER Oxygen Saturation 98% 05/29/2020 1:09 PM LEAD APPLIER Inhaled Oxygen Concentration - - Weight 92.5 kg (203 lb 14.4 oz) 07/29/2019 9:51 AM LEAD APPLIER Height 169.5 cm (5' 6.75) 07/29/2019 9:51 AM CS T Body Mass Index 32.17 07/29/2019 9:51 AM LEAD APPLIER Plan of Treatment Health Maintenance Due Date Last Done Comments ADVANCE CARE PLANNING 1968 ANNUAL REVIEW OF HM ORDERS 1968 CT COLONOGRAPHY 1968 FIT 1968 FLEX SIG 1968 HEPATITIS B IMMUNIZATION (1 of 3 - 3-dose series) 1968 MAMMO SCREENING 1968 sDNA (Cologuard) 1968 COVID-19 Vaccine (#1) 1968 COLONOSCOPY 1978 COLORECTAL CANCER SCREENING 1978 HIV SCREENING 1983 HEPATITIS C SCREENING 1986 PAP 1989 DTAP/TDAP/TD IMMUNIZATION (1 - Tdap) 1993 YEARLY PREVENTIVE VISIT 01/23/2000 01/22/1999 LIPID 2008 LUNG CANCER SCREENING 2018 ZOSTER IMMUNIZATION (1 of 2) 2018 GLUCOSE 11/09/2021 11/09/2018, 07/15, 12/16/2017, Additional history exists INFLUENZA VACCINE (#1) 2023 05/22/2018 PHQ-2 (once per calendar year) 2023 07/29/2019, 02/04/2019 HPV IMMUNIZATION Aged Out No longer e ligible based on patient's age to complete this topic IPV IMMUNIZATION Aged Out No longer e ligible based on patient's age to complete this topic MENINGITIS IMMUNIZATION Aged Out No l onger eligible based on patient's age to complete this topic Pneumococcal Vaccine: Pediatrics (0 to 5 Years) and At-Risk Patients (6 to 64 Years) Aged Out No longer eligible based on patient's age to complete this topic RSV MONOCLONAL ANTIBODY Aged Out No l onger eligible based on patient's age to complete this topic Care Teams Cable Braider Relationship Specialty Start Date End Date No Ref-Primary, Physician PCP - General 09/30/17 Candida Epps MD Internal Medicine 01/15/19
--- OUTSIDE RECORDS SUMMARY | 2023-08-21 10:20 | XMS_ITS | Clinical Summary ---
Author Name Unknown Organization [facility] Address [place], [place] [address] Care Team Providers Care Transition Rn Name Role Phone None Primary Care Provider Unavailabl e Allergies No known active allergies Medications Medication Sig Dispensed Refills Start Date End Date Status IBUPROFEN 800 MG TAB take 1 tablet (800 mg) by oral route 3 times per day with food 30 0 11/21/2008 Active HYDROcodone-acetam inophen, 5-325 mg, (NORCO) per tablet Take 1-2 tablets by mouth every 6 hours if needed for Pain. Max acetaminophen dose: 4000mg in 24 hrs. 15 tablet 0 10/11/2014 Active folic acid 1 mg tablet Take 1 mg by mouth once daily. 0 09/19/2020 Active allopurinoL (ZYLOPRIM) 300 mg tablet Take 300 mg by mouth once daily. 0 09/18/2020 Active LORazepam (ATIVAN) 0.5 mg tab Take 0.5 mg by mouth 4 times daily if needed. 0 Active morphine CONTROLLED-RELEASE (MS CONTIN) 15 mg tablet Take 15 mg by mouth one time if needed. 0 09/18/2020 Active morphine CONTROLLED RELEASE (MS CONTIN) 60 mg tablet Take 1 Tablet by mouth 2 times daily. 0 01/26/2019 Active Stimulant Laxative Plus 8.6-50 mg tablet Take 8.6-50 Tablets by mouth 2 times daily. 0 04/01/2020 Active sennosides-docusat e, 8.6-50 mg, (SENOKOT S) 8.6-50 mg tablet Take 1 Tablet by mouth 2 times daily if needed. 0 Active Senna 8.6 mg tablet Take 8.6 mg by mouth 2 times daily. 0 08/18/2020 Active sodium/potassium bicarbonate citric acid (VASYL-SELTZER GOLD) tablet Take 1 Tablet by mouth each time if needed. 0 Active pantoprazole (PROTONIX) 40 mg delayed-release tablet Take 40 mg by mouth once daily. 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 Low hemoglobin 10/04/2020 Social History Tobacco Use Types Packs/Day Years Used Date Smoking Tobacco: Former Cigarettes Q uit: 09/28/2011 Alcohol Use Standard Drinks/Week Comments No 0 (1 standard drink = 0.6 oz pur e alcohol) Sex and Gender Information Value Date Recorded Sex Assigned at Not on file Gender Identity Not on file Sexual Orientation Not on file Obstetrics History Last Filed Vital Signs Vital Sign Reading Time Taken Comments Blood Pressure 113/66 05/24/2021 1:18 PM BOARD LINER OPERATOR Pulse 111 05/24/2021 1:18 PM BOARD LINER OPERATOR Temperature 36.2 ??C (97.1 ??F) 05/24/2021 1:18 PM CS T Respiratory Rate 20 05/24/2021 1:18 PM BOARD LINER OPERATOR Oxygen Saturation 94% 05/24/2021 11:07 AM BOARD LINER OPERATOR Inhaled Oxygen Concentration - - Weight 92.1 kg (203 lb) 04/14/2021 1:22 PM CDT Height 170.2 cm (5' 7) 04/14/2021 1:22 PM CDT Body Mass Index 31.79 04/14/2021 1:22 PM CDT Plan of Treatment Health Maintenance Due Date Last Done Comments Tdap 1979 Depression screening for age 12+ 1980 HIV for age 15-65 1983 BMI (ht and wt on same day) for age 18+ 1986 Hepatitis C screening for ag e 18-79 1986 Tetanus booster 1988 Pap test for age 21-65 1989 Colonoscopy through age 75 2013 Lipids for age 45-75 2013 Mammogram for age 45-75 2013 Zoster (shingles) series for age 50+ (1 of 2) 2018 COVID-19 vaccine series (2022- season) 2023 12/05/2020, 11/07/2020 Influenza for age 50-64 03/14/2023 Pneumococcal series for age 6-64 Aged Out No longer eligible b ased on patient's age to complete this topic Care Teams Transition Rn Relationship Specialty Start Date End Date None . PCP - General 10/03/20
--- OUTSIDE RECORDS SUMMARY | 2023-08-21 10:20 | XMS_ITS | Encounter Summary ---
Author Name Unknown Organization [facility] Address [address] [place] [address] Care Team Providers Care Principal Consultant Name Role Phone No Ref-Primary, Physician Primary Care Provider Candida Epps MD Unavailable Shala Bell RN Unavailable Unavailable Ronaldo Cheatham MD Unavailable [phone] Candida Epps MD Unavailable Boaz Garcia MD Unavailable [phone] Rodrick Turner MD Unavailable Reason for Visit * Reason Onset Date Comments Appointment 12/16/2018 Encounter Details Date Type Department Care Team (Late st Contact Info) Description 12/16/2018 Telephone [facility] [address] [place] [address] Edin Hu MD [facility] [address] [place] [address] Appointment Social History Tobacco Use Types Packs/Day Years Used Date Smoking Tobacco: Former Cigarettes Q uit: 09/27/2012 Smokeless Tobacco: Never Comments:quit September 27, 2012 Alcohol Use Standard Drinks/Week Comments Yes 0 (1 standard drink = 0.6 oz pur e alcohol) 1 drink per week Sex and Gender Information Value Date Recorded Sex Assigned at Not on file Gender Identity Not on file Sexual Orientation Not on file documented as of this encounter Miscellaneous Notes * Telephone Encounter - Amee Davidson - 12/16/2018 8:28 AM CDT lvm documented in this encounter Plan of Treatment Not on file documented as of this encounter Visit Diagnoses Not on filedocumented in this encounter Care Teams Principal Consultant Relationship Specialty Start Date End Date No Ref-Primary, Physician PCP - General 09/30/17 Candida Epps MD Internal Medicine 01/15/19 Shala Bell, RN Specialty Truck Trailer Final Inspector Hematology & Oncology 01/15/19 07/23/21 Ronaldo Cheatham MD [address] [facility] [address] [place], [place] [address] Assigned Heart and Vascular Provider 05/05/20 09/09/20 Candiad Epps MD [facility] [address] [place] [address] Assigned Cancer Care Provider 05/05/20 07/22/20 Boaz Garcia MD [address] [facility] [address] [place] [address] Assigned Surgical Provider 05/05/20 01/25/21 Rodrick Turner MD [address] [place] [address] [address] [place] [address] Assigned Sleep Provider 05/05/20 documented as of this encounter
--- OUTSIDE RECORDS SUMMARY | 2023-08-21 10:20 | XMS_ITS | Clinical Summary ---
Author Name Unknown Organization [facility] Address [address] [place] [address] Care Team Providers Care Chain Splitter Name Role Phone Ab Patterson MD Primary Care Provider [phone] Source Comments You are receiving this document as you are listed as the primary care provider,follow-up provider, or the patient has been referred to you for consultation.This is in compliance with the Medicare andMedicaid EHR Incentive Program,which states Providers who transition their patient to another setting of careor provider of care or refers their patient to another provider of care shouldprovide summary care record for each transition of care or referral. [facility] Allergies Active Allergy Reactions Criticality Noted Date Comments Latex 10/15/2010 PN: Converted from LW Latex Sensitivity Flag Medications Medication Sig Dispensed Refills Start Date End Date Status HYDROcodone-acetamin ophen (VICODIN) 5-500 MG tablet Take 1-2 tablets by mouth every 4 hours as needed. LW Addl Instr:Maximum of 8 tablets/24 hours. 15 0 01/01/2007 Active Additional Information Patient not taking.Reported on 04/11/2016 MORPHINE SULFATE OR 15 mg. 0 Activ e oxyCODONE (AKA ROXICODONE) 5 MG immediate release tablet Take 5 mg by mouth every 4 hours as needed for Pain. 0 Active sennosides-docusate sodium (SENNA-DOCUSATE) 8.6-50 MG tablet Take 1 Tab by mouth daily. 0 Active Multiple Vitamin (MULTIVITAMINS OR) 0 Active LORazepam (ATIVAN) 0.5 MG tablet Take 0.5 mg by mouth every 6 hours as needed for Anxiety. 0 Active Active Problems Problem Noted Date Diagnosed Date Cervical cancer screening 04/16/2016 Overview: From visit on 04/11/16: History of abnormal pap tests? yes, age 23?, colposcopy but no treatment required 2015 NILM, HPV negative 46 y.o. Plan: [facility] 03/2021 ; Pap test history Obesity, morbid, BMI 40.0-49.9 04/11/2016 Hypertension 04/11/2016 Myelofibrosis 12/01/2015 Overview: Diagnosed by Dr Hu in September 2015 and treated with Jakafi 20mg bid Pain in bones and spleen managed by Dr Delgadillo of [place] pain Plantar fasciitis 12/01/2015 Immunizations Name Administration [...] 36.6 ??C (97.8 ??F) 12/01/2015 8:44 AM CD T Respiratory Rate - - Oxygen Saturation - - Inhaled Oxygen Concentration - - Weight 122.5 kg (270 lb) 04/11/2016 1:26 PM CDT Height 169.5 cm (5' 6.75) 04/11/2016 1:26 PM CD T Body Mass Index 42.61 04/11/2016 1:26 PM CDT Plan of Treatment Health Maintenance Due Date Last Done Comments Colon Cancer Screening Plan Due 1968 Hep C Screening (Preventive Services) 1968 HepB (1) 1968 Mammogram 1968 COVID-19 Vaccine (#1) 1968 DTaP/Tdap/Td (1 - Tdap) 08/24/1998 08/23/1998 Cholesterol 2013 02/22/1998 Adult Preventive Visit 04/11/2017 6, 01/22/1999 Zoster/Shingles (1 of 2) 2018 Cervical Cancer Screening 04/11/20212015, 01/22/1999 Influenza (#1) 2023 HIV Screening (Preventive Services) Completed 02/22/1998 HepA Aged Out No longer eligi ble based on patient's age to complete this topic Hib Aged Out No longer eligi ble based on patient's age to complete this topic IPV (Polio) Aged Out No longer eligi ble based on patient's age to complete this topic MCV4 Aged Out No longer eligi ble based on patient's age to complete this topic Pneumococcal Aged Out No longer eligi ble based on patient's age to complete this topic Care Teams Chain Splitter Relationship Specialty [place] [address] [place] [address] PCP - General Family Practice 11/30/15
--- OUTSIDE RECORDS SUMMARY | 2023-08-21 10:21 | XMS_ITS | Encounter Summary ---
Author Name Unknown Organization [facility] Address [address] [place] [id number] Care Team Providers Care Patrol [employer] Lieutenant Name Role Phone Elsewhere, Pcp Primary Care Provider Unavailabl e Reason for Visit * Reason Onset Date Comments External Lab Entry 08/11/2023 Encounter Details Date Type Department Care Team (Latest Contact Info) Description 08/11/2023 Clinical Communication Division of Hematology in [place], [place] [address] [place] [phone] Janusz Govea M.B.BZahraaS. [address] [place] [phone] External Lab Entry Social History Tobacco Use Types Packs/Day Years Used Date Smoking Tobacco: Former Cigarettes 1 26 Q uit: 2013 Smokeless Tobacco: Never Comments:still smokes mariju shady Alcohol Use Standard Drinks/Week Comments Yes 0 (1 standard drink = 0.6 oz pur e alcohol) occasional PHQ-2 Answer Date Recorded PHQ-2 Score 0 07/24/2021 Nutrition Answer Date Recorded Nutrition: EVOO Fat Source Unknown 09/06 Nutrition: Servings of Fruits/Vegetables per Day Not on file 09/06/2020 Dental Answer Date Recorded Dental: Regular Dentist Unknown 09/06/19 21 Sex and Gender Information Value Date Recorded Sex Assigned at Female 07/24/2021 11:03 AM TECHNICAL INSPECTOR Gender Identity Female 07/24/2021 11:03 AM TECHNICAL INSPECTOR Sexual Orientation Straight 07/24/2021 11 :03 AM TECHNICAL INSPECTOR documented as of this encounter Miscellaneous Notes * Telephone Encounter - Leann Marroquin - 08/11/2023 11:54 AM CST Outside labs collected on 08/11/2023 have been received. The fax has been scanned into the patient record via [employer] and the CBC results are as noted below. Hemoglobin: 6.8 Hematocrit: 23.3 WBC: 27.38 ANC: 13.70 Platelets: 844 Please note: Are there additional labs reported on the outside report? No NICAL INSPECTOR documented in this encounter Plan of Treatment Not on file documented as of this encounter Visit Diagnoses Not on filedocumented in this encounter Additional Health Concerns Infection Onset Date Last Indicated Resolved Time Protective Environment 01/22/2023 01/22/2023 documented as of this encounter Care Teams Patrol [employer] Lieutenant Relationship Specialty Start Date End Date Elsewhere, Pcp PCP - General 11/04/21 documented as of this encounter
--- OUTSIDE RECORDS SUMMARY | 2023-08-21 10:21 | XMS_ITS | Referral Summary ---
Author Name Unknown Organization [facility] Address [address] [place] [id number] Care Team Providers Care Bi Tester Name Role Phone Elsewhere, Pcp Primary Care Provider Unavailabl e Source Comments Patient records contain information from all sites at [facility]. For routine questions regarding patient records, call [phone] during business hours, M-F 8:00 AM - 5:00 PM Central Time. Record requests for emergency care only can be directed to [phone] at any time.[facility] Encounters Date Type Department Care Team Description 08/20/2023 Specialty Pharmacy [facility] [id number] [place] [phone] Ariana Streeter C.Ph.T. 08/18/2023 Clinical Communication Division of Hematology in [place], [place] [address] [place] [address] Janusz Govea M.B.B.S. External Lab Entry 08/11/2023 Clinical Communication Division of Hematology in [place], [place] [address] [place] [phone] Janusz Govea M.B.B.S. External Lab Entry 08/07/2023 Clinical Communication Department of Cardiovascular Medicine in [place], [place] [address] [place] [phone] Matthew Mayes M.D. Rx Denial (SILDENAFIL CITRATE TABLET) 08/04/2023 Clinical Communication Division of Hematology in [place], [place] [address] [place] [phone] Janusz Govea M.B.B.S. Order Request 07/31/2023 Clinical Communication Division of Hematology in [place], [place] [address] [place] [phone] Janusz Govea M.B.B.SZahraa External Lab Entry 07/31/2023 Episode Changes Department of Cardiovascular Medicine in [place], [place] [address] [place] [phone] Aide Mueller R.N. 07/31/2023 10:30 AM CRUSHED STONE GRADER Education Department of Cardiovascular Medicine in [place], [place] [address] [place] [phone] Matthew Mayes M.D. Sandstrom, Kathy A, R.N. Hypertension Pulmonary Primary (HCC); Hypertension Pulmonary (HCC); Myelofibrosis (HCC); Dyspnea On Exertion; Medication Therapy Fdc Not Anticoagulant 07/30/2023 12:27 PM CRUSHED STONE GRADER - 07/30/2023 11:59 PM CRUSHED STONE GRADER Hospital Encounter Department of Cardiac Rehabilitation in [place], [place] [address] [place] [phone] Matthew Mayes M.D. Hypertension Pulmonary (HCC); Myelofibrosis (HCC); Dyspnea On Exertion Discharge Disposition: Home or Self Care 07/30/2023 10:09 AM CRUSHED STONE GRADER - 07/30/2023 12:26 PM CRUSHED STONE GRADER Hospital Encounter Department of Cardiovascular Diseases in [place], [place] [address] [place] [phone] Matthew Mayes M.D. Hypertension Pulmonary (HCC); Myelofibrosis (HCC); Dyspnea On Exertion Discharge Disposition: Home or Self Care 07/30/2023 9:35 AM CRUSHED STONE GRADER - 07/30/2023 10:08 AM CRUSHED STONE GRADER Hospital Encounter Department of Laboratory Medicine and Pathology, [facility] in [place], [place] [address] [place] [phone] Matthew Mayes M.D. Hypertension Pulmonary (HCC); Myelofibrosis (HCC); Dyspnea On Exertion Discharge Disposition: Home or Self Care 07/30/2023 2:00 PM CRUSHED STONE GRADER Office Visit Department of Cardiovascular Medicine in [place], [place] [address] [place] [phone] Matthew Mayes M.D. Hypertension Pulmonary Primary (HCC) (Primary Dx); Hypertension Pulmonary (HCC); Myelofibrosis (HCC); Dyspnea On Exertion; Medication Therapy Fdc Not Anticoagulant 07/28/2023 12:00 PM CRUSHED STONE GRADER Clinical Communication Virtual Review in [place], [place] [address] [place] [address] Pre-visit Intake 07/25/2023 Specialty Pharmacy [facility] [id number] [place] [phone] Cathi Michael, Pharm.D., R.Ph. Myelofibrosis Primary (HCC) (Primary Dx) 07/23/2023 Clinical Communication Division of Hematology in [place], [place] [address] [place] [address] Janusz Govea M.B.B.S. External Lab Entry 07/18/2023 [address] [facility] [id number] [place] [phone] Matthew Travis Jr., R.Ph. 07/17/2023 Clinical Communication Division of Hematology in [place], [place] [address] [place] [address] Janusz Govea M.B.B.S. Rx Denial (OJDENNYARA) 07/16/2023 Clinical Communication Division of Hematology in [place], [place] [address] [place] [address] Janusz Govea M.B.B.S. External Lab Entry 07/15/2023 Orders Only Pharmacy Prior Auth RO [phone] Linda Motley 07/09/2023 Clinical Communication Division of Hematology in [place], [place] [address] [place] [address] Janusz Govea M.B.B.S. External Lab Entry 07/04/2023 Orders Only Virtual Review in [place], [place] [address] [place] [address] Janusz Govea M.B.B.SZahraa 07/02/2023 6:55 AM CRUSHED STONE GRADER - 07/02/2023 11:59 PM CRUSHED STONE GRADER Hospital Encounter Department of Laboratory Medicine and Pathology, [facility], in [place], [place] [address] [place] [phone] Janusz Govea M.B.B.S. Myelofibrosis Primary (HCC) Discharge Disposition: Home or Self Care 07/02/2023 11:00 AM CRUSHED STONE GRADER Office Visit Division of Hematology in [place], [place] [address] [place] [phone] Janusz Govea M.B.B.S. Myelofibrosis Primary (HCC) (Primary Dx) 07/01/2023 10:15 AM CRUSHED STONE GRADER Clinical Communication Virtual Review in [place], [place] [address] [place] [address] 06/24/2023 Clinical Communication Division of Hematology in [place], [place] [address] [place] [phone] Janusz Govea M.B.BZahraaSZahraa External Lab Entry 06/13/2023 Clinical Communication Division of Hematology in [place], [place] [address] [place] [phone] Janusz Govea M.B.B.SZahraa External Lab Entry 06/09/2023 Clinical Communication Division of Hematology in [place], [place] [address] [place] [phone] Janusz Govea M.B.B.SZahraa External Lab Entry 06/03/2023 Clinical Communication Division of Hematology in [place], [place] [address] [place] [phone] Janusz Govea M.B.B.SZahraa External Lab Entry 05/30/2023 Clinical Communication Division of Hematology in [place], [place] [address] [place] [phone] Janusz Govea M.B.B.SZahraa Forms (Exemption letter for Jury Duty) 05/23/2023 Refill Division of Hematology in [place], [place] [address] [place] [phone] Janusz Govea M.B.B.SZahraa Med Refill 05/23/2023 Refill Division of Hematology in [place], [place] [address] [place] [address] Janusz Govea M.B.BZahraaS. Med Refill 05/22/2023 Clinical Communication Division of Hematology in [place], [place] [address] [place] [address] Janusz Govea M.B.B.S. External Lab Entry from Last 3 Months Allergies No known active allergies Medications Medication Sig Dispensed Refills Start Date End Date Status sennosides (SENOKOT) 8.6 mg tablet Take 1 tablet by mouth 2 (two) times a day as needed. 0 03/07/2016 Active sodium-potassium bicarbonate (VASYL-SELTZER GOLD) 344-1,050-1,000 mg tablet, effervescent Take 1 tablet by mouth daily as needed (upset stomach). 0 Active LORazepam (ATIVAN) 0.5 mg tablet Take 1-2 mg by mouth at bedtime as needed for anxiety or sleep. 0 Active torsemide (DEMADEX) 20 mg tablet Take 1 tablet (20 mg total) by mouth daily. 30 tablet 1 06/12/2021 Active Additional Information Patient taking differently:20 mg oralEvery morning, May take an additional dose in the evening if needed for swelling, Reported on 03/18/2022 cyanocobalamin (VITAMIN B12) 100 mcg tablet Take 100 mcg by mouth once a week. Mondays 0 Active calcium acetate,phosphat bind, (PHOSLO) 667 mg (169 mg calcium) capsule TAKE 2 CAPSULES BY MOUTH THREE TIMES DAILY 540 capsule 0 08/14/2021 Active Additional Information Patient not taking.Reported on 01/30/2023 UNABLE TO FIND Med Name: Cannabis- patient's reports this is newly prescribed for her and as of 03/11/22, has not yet started. Reports patient will have gummies as well as a tablet, have not picked these up yet. Strength of these is not known because they are new for her. 0 Active acetaminophen (TYLENOL) 500 mg tablet Take 2 tablets (1,000 mg total) by mouth every 6 (six) hours as needed for pain (Do not exceed 4000mg/day.). 0 03/18/2022 Active oxyCODONE (ROXICODONE) 5 mg immediate release tabletIndications :Acute Pain Exception Take 1 tablet (5 mg total) by mouth 2 (two) times a day Indication: Acute Pain Exception. 8 tablet 0 03/25/2022 Active Additional Information Patient taking differently:5 mg oralAs needed, Indications: Acute Pain Exception, Reported on 09/16/2022 enoxaparin (LOVENOX) 100 mg/mL injection Inject 0.9 mL (90 mg total) under the skin 2 (two) times a day for 18 days. Continue medication until follow up appointments. Do not stop. 36 mL 0 04/01/2022 Active morphine (MS CONTIN) 30 mg ER tablet Take 30 mg by mouth 2 (two) times a day. 0 09/15/2022 Active Morphine 15 mg, Bupivacaine 10 mg/mL INTRATHECAL 15 mg 2 (two) times a day. 0 04/05/2022 Active morphine (MS CONTIN) 15 mg ER tablet TAKE 1 TABLET BY MOUTH EVERY 12 HOURS FOR PAIN 0 11/15/2022 Active buPROPion XL (WELLBUTRIN XL) 150 mg 24 hr tablet Take 150 mg by mouth daily. 0 11/22/2022 Active febuxostat (ULORIC) 40 mg tablet Take 1 tablet (40 mg total) by mouth daily. 30 tablet 3 01/22/2023 Active Additional Information Patient not taking.Reported on 01/30/2023 allopurinoL (ZYLOPRIM) 300 mg tablet take 1 tablet by mouth daily 90 tablet 3 05/23/2023 Active hydroxyurea (HYDREA) 500 mg capsule TAKE 1 CAPSULE BY MOUTH TWICE DAILY TAKE AT THE SAME TIME EACH DAY 180 capsule 1 05/23/2023 Active Additional Information Patient not taking.Reported on 07/25/2023 momelotinib (OJJAARA) 100 mg tablet Take 1 tablet (100 mg total) by mouth daily. Swallow tablets whole; do not cut, crush or chew. 30 tablet 3 07/02/2023 Active RX WELCOME PACKET-SPECIALTY- OP ONLY Welcome packet 1 each 0 07/18/2023 Active sildenafil (REVATIO) 20 mg tablet Take 1 tablet (20 mg total) by mouth 3 (three) times a day. 90 tablet 3 07/30/2023 Active spironolactone (ALDACTONE) 25 mg tablet Take 1 tablet (25 mg total) by mouth daily. 90 tablet 3 07/30/2023 Active sildenafil (REVATIO) 20 mg tablet Take 1 tablet (20 mg total) by mouth 3 (three) times a day. 90 tablet 11 07/30/2023 5 Active pacritinib (VONJO) 100 mg capsule Take 1 capsule (100 mg total) by mouth 2 (two) times a day. 60 capsule 3 01/22/2023 4 Discontinue d(Therapy completed) Active Problems Patient Care Coordination No te Formatting of this note migh t be different from the original. Interdisciplinary plan of care: Improve pulmonary hypertension self-management through education including use of a sick day plan when appropriate Goals related to diet: Follow a low sodium diet 2000 mg daily and Limit fluid intake of 64 ounces or less per day, Goals related to activity: Establish exercise plan within functional limitations, Goals related to medication: Increase awareness of symptoms and/or side effects related to medication titration , Optimize medications as ordered by prescriber, and Manage prescription refills to avoid running out of medications, Goals related to monitoring: Will obtain lab tests as ordered and Weigh daily , Goals related to coping: Make small realistic goals for each day, Build pleasurable activities into each day, Establish and utilize local support network and/or online support networks, and Communicate wishes to family and healthcare providers, and Reducing Risks: Regular follow up with your provider, Contact RN healthcare consultant for sudden weight gain or worsening symptoms/side effects, and Contact EMS for emergent conditions Current functional limitations: Class III: symptoms with less than ordinary physical activity and significant limitations with physical activity Assistive devices/DME used: Current Community Resources: outpatient lab, [facility] Problem Noted Date Diagnosed Date Hypertension Pulmonary Primary 12/16/2022 Anemia Of Chronic Disease 03/12/2022 Chronic Pain Syndrome 03/12/2022 Dyspnea On Exertion 06/29/2021 Overview: Added automatically from request for surgery [id number] Hypertension Pulmonary 06/11/2021 Hyperuricemia 06/08/2021 Edema 06/08/2021 Elevated Creatinine 06/08/2021 Gastroesophageal Reflux Disease 06/08/2021 Splenomegaly Acquired 06/06/2021 Overview: Added automatically from request for surgery [id number] Pancytopenia 06/06/2021 Fluid Overload Unspecified 06/06/2021 Anxiety 06/06/2021 Insomnia 06/06/2021 Tachycardia Sinus 06/06/2021 Hyperphosphatemia 06/06/2021 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 Regurgitation Tricuspid 06/06/2021 Abdominal Pain 02/16/2021 Myelofibrosis Primary Resolved Problems Problem Noted Date Diagnosed Date Resolved Date History Of Falling 06/06/2020 Immunizations Name Administration Dates Next Due Hib (PRP-OMP) (PedvaxHIB) 06/06/2021 Influenza, Seasonal, Injectable 05/22/2018 MCV4 (Menactra)(Discontinued) 06/06/2021 MenB (BEXSERO) 06/06/2021 PCV13 06/06/2021 SARS-COV-2 (COVID-19) - MODERNA BIVALENT(Discont inued) 05/17/2022 SARS-COV-2 (COVID-19) - MODERNA(Discontinued) Td, (Adult) Unspecified 08/23/1998 influenza vaccine quad (FLUZ ONE/FLUARIX) (6 months and older)(PF) 05/17/2022,06/06/2021 Social History Tobacco Use Types Packs/Day Years Used Date Smoking Tobacco: Former Cigarettes 1 26 Q uit: 2013 Smokeless Tobacco: Never Tobacco Cessation:Counseling Given: Not Answered Comments:still smokes marijuana Alcohol Use Standard Drinks/Week Comments [...] Sex Assigned at Female 07/24/2021 11:03 AM CRUSHED STONE GRADER Gender Identity Female 07/24/2021 11:03 AM CRUSHED STONE GRADER Sexual Orientation Straight 07/24/2021 11 :03 AM CRUSHED STONE GRADER Last Filed Vital Signs Vital Sign Reading Time Taken Comments Blood Pressure 114/72 07/02/2023 10:49 AM CRUSHED STONE GRADER Pulse 85 07/02/2023 10:49 AM CRUSHED STONE GRADER Temperature 36.1 ??C (97 ??F) 07/02/2023 10:49 AM CRUSHED STONE GRADER Respiratory Rate 18 03/18/2022 10:31 AM CDT Oxygen Saturation 94% 03/18/2022 10:31 AM CDT Inhaled Oxygen Concentration - - Weight 105 kg (230 lb 9.6 oz) 07/02/2023 10:49 A M CRUSHED STONE GRADER Height 172.3 cm (5' 7.84) 07/02/2023 10:[address] Body Mass Index 35.23 07/02/2023 10:49 AM CRUSHED STONE GRADER Plan of Treatment Not on file Medical Devices Implanted Type Area Photographic Plate Maker Device Identifier Shelf Expiration Date Model / Serial / Lot Clp Brigitteol Leora De La Torre - [id number] Implanted:Qty : 1 on 03/13/2022 by Hema Rothman M.D. at [facility] Hardware e.g. pins/screws/ rods N/A: Abdomen [employer] [id number] / / Procedures Procedure Name Priority Date/Time Associated Diagnosis Comments 6 MINUTE WALK Routine 07/30/2023 12:30 PM CRUSHED STONE GRADER Hypertension Pulmonary (HCC) Myelofibrosis (HCC) Dyspnea On Exertion (TTE) 2D ECHO DOPPLER COLOR Routine 07/30/2023 11:41 AM CRUSHED STONE GRADER Hypertension Pulmonary (HCC) Myelofibrosis (HCC) Dyspnea On Exertion SPSMA RESULT Routine 07/30/2023 10:00 AM CRUSHED STONE GRADER POTASSIUM, PLASMA Routine 07/30/2023 10: 00 AM CRUSHED STONE GRADER Hypertension Pulmonary (HCC) Myelofibrosis (HCC) Dyspnea On Exertion NT-PRO B-TYPE NATRIURETIC PEPTIDE (BNP), S Routine 07/30/2023 10:00 AM CRUSHED STONE GRADER Hypertension Pulmonary (HCC) Myelofibrosis (HCC) Dyspnea On Exertion THYROID FUNCTION CASCADE, S Routine 07/30/2023 10:00 AM CRUSHED STONE GRADER Hypertension Pulmonary (HCC) Myelofibrosis (HCC) Dyspnea On Exertion BUN (BLOOD UREA NITROGEN), S/P Routine 07/30/2023 10:00 AM CRUSHED STONE GRADER Hypertension Pulmonary (HCC) Myelofibrosis (HCC) Dyspnea On Exertion BILIRUBIN, TOT, S/P Routine 07/30/2023 1 0:00 AM CRUSHED STONE GRADER Hypertension Pulmonary (HCC) Myelofibrosis (HCC) Dyspnea On Exertion ALKALINE PHOSPHATASE, S/P Routine 07/30/2023 10:00 AM CRUSHED STONE GRADER Hypertension Pulmonary (HCC) Myelofibrosis (HCC) Dyspnea On Exertion ASPARTATE AMINOTRANSFERASE (AST), S/P Routine 07/30/2023 10:00 AM CRUSHED STONE GRADER Hypertension Pulmonary (HCC) Myelofibrosis (HCC) Dyspnea On Exertion CREATININE WITH EGFR, S/P Routine 07/30/2023 10:00 AM CRUSHED STONE GRADER Hypertension Pulmonary (HCC) Myelofibrosis (HCC) Dyspnea On Exertion SODIUM, S/P Routine 07/30/2023 10:00 AM CRUSHED STONE GRADER Hypertension Pulmonary (HCC) Myelofibrosis (HCC) Dyspnea On Exertion CBC WITH DIFFERENTIAL, B Routine 024 10:00 AM CRUSHED STONE GRADER Hypertension Pulmonary (HCC) Myelofibrosis (HCC) Dyspnea On Exertion HEMATOLOGY/ONCOLOGY - BLOOD, EXTERNAL LAB RESULTS Routine 07/09/2023 10:38 AM CRUSHED STONE GRADER SPSMA RESULT Routine 07/02/2023 7:08 AM CRUSHED STONE GRADER Myelofibrosis Primary (HCC) POTASSIUM, PLASMA Routine 07/02/2023 7:0 8 AM CRUSHED STONE GRADER Myelofibrosis Primary (HCC) COMPREHENSIVE METABOLIC PANEL, S/P Routine 07/02/2023 7:08 AM CRUSHED STONE GRADER Myelofibrosis Primary (HCC) CBC WITH DIFFERENTIAL, B Routine 023 7:08 AM CRUSHED STONE GRADER Myelofibrosis Primary (HCC) URIC ACID, S/P Routine 07/02/2023 7:08 AM CRUSHED STONE GRADER Myelofibrosis Primary (HCC) LIPASE, S/P Routine 07/02/2023 7:06 AM CRUSHED STONE GRADER AMYLASE, TOT, S Routine 07/02/2023 7:06 AM CRUSHED STONE GRADER Myelofibrosis Primary (HCC) HEMATOLOGY/ONCOLOGY - BLOOD, EXTERNAL LAB RESULTS Routine 06/24/2023 9:22 AM CRUSHED STONE GRADER from Last 3 Months Results * 6 MINUTE WALK (07/30/2023 12:30 PM CRUSHED STONE GRADER) Narrative Linn Rey P.A.-C., M.S. - 07/30/2023 12:30 PM CRUSHED STONE GRADER Linn Rey P.A.-C., M.S. ? 07/31/2023 11:51 AM Six Minute Walk Performed by: Flip Christensen CRAT Authorized by: Matthew Mayes M.D. ?? Were medications taken in the last 24 hours?: yes ?? PRE WALK Assistive Device: ??None 6 Min Walk Distance Type: ??Track Height (cm): ??172 Weight (kg): ??106 BMI: ??35.8 Resting Heart Rate: ??103 Heart Rate Source: ??Pulse Oximeter Resting BP: ??130/72 BP Cuff Arm: ??Left BP Cuff Size: ??LargeSupplemental Oxygen used: ??Supplemental Oxygen Not Used Resting SpO2: ??96 SpO2 Site: ??Finger Angina Scale: ??0 - No Angina Ambika Dyspnea: ??3 - Moderate Ambika Fatigue: ??3 - Moderate POST WALK Heart Rate: ??118 Heart Rate Source: ??Pulse Oximeter SpO2: ??95 BP: ??186/76 BP Cuff Side: ??Left Angina Scale: ??0 - No Angina Ambika Dyspnea: ??7 - Very Severe Ambika Fatigue: ??4 - Somewhat Severe Time of Test: ??12:30 CRUSHED STONE GRADER Total Distance Walked (Feet): ??1360 Total Distance Walked (Meters): ??414.53 Total # of Times Stopped: ??0 Time Stopped (Seconds): ??0 Time Walked (Seconds): ??360 CALCULATIONS Estimated MPH: ??2.6 Estimated METs: ??2.99 % of Predicted Distance: ??87.65 Matthew Mayes M.D. CV STRESS PROCEDURE S * (TTE) 2D ECHO DOPPLER COLOR (07/30/2023 11:41 AM CRUSHED STONE GRADER) Ejection Fraction 59 MC CV EIMS Mid-Ascending Aorta 32 MC CV EIMS LV Mass Index 97 MC CV EIMS LV End-Diastolic Diameter 57 MC CV EIMS LV End-Systolic Diameter 39 MC CV EIMS MV E Velocity 1 MC CV EIMS MV A Velocity 0.9 MC CV EIMS MV E/A 1.11 MC CV EIMS MV e' Velocity Lateral 0.1 MC CV EIMS MV E/e' Lateral 10 MC CV EIMS Left ventricular stroke volume index 47 MC CV EIMS Cardiac Output 7.1 MC CV EIMS Cardiac Index 3.26 MC CV EIMS LV Interventricular Septal Wall Thickness 10 MC CV EIMS LV Posterior Wall Thickness 9 MC CV EIMS LV Relative Wall Thickness 32 MC CV EIMS RV 4-Chamber Basal Diameter 57 MC CV EIMS RV 4-Chamber Mid Diameter 55 MC CV EIMS RV 4-Chamber Length 102 MC CV EIMS TAPSE 27 MC CV EIMS Tricuspid Annular S? 0.16 MC CV EIMS RV Free Wall Strain -22 MC CV EIMS TR Vmax 3.91 MC CV EIMS RA Pressure 10 MC CV EIMS RV Systolic Pressure 71 MC CV EIMS Estimated diastolic pulmonary artery pressure 17 MC CV EIMS AV mean gradient 10 MC CV EIMS Aortic valve area 2.36 MC CV EIMS Aortic Valve Dimensionless Index 0.62 MC CV EIMS MV mean gradient 3 MC CV EIMS TV Regurgitant Volume 49 MC CV EIMS LA Volume Index 46 MC CV EIMS Aortic Valve Systolic Peak Velocity 2.2 MC CV EIMS Anatomical Region Laterality Modality Echocardiography 07/30/2023 10:3 0 AM CRUSHED STONE GRADER Impressions 07/30/2023 12:23 PM CRUSHED STONE GRADER Anemia, thyrotoxicosis, or another high output state could contribute to the increased Doppler velocities (Hemoglobin 7.7 g/dL). LEFT VENTRICLE:Severely enlarged left ventricular chamber size based on 3-D volumetrics. D-shaped left ventricle. Abnormal left ventricular geometry with ??eccentric left ventricular hypertrophy. Calculated 3-D volumetric left ventricular ejection fraction 59%. Left ventricular cardiac index 3.26 l/min/m2. Left ventricular stroke volume index 47 ml/m2. No regional wall motion abnormalities. Indeterminate left ventricular filling pressure. RIGHT VENTRICLE:Severely enlarged right ventricular chamber size. Mild- moderately reduced right ventricular systolic function. Averaged right ventricular free wall longitudinal peak systolic strain is -22% (normal </= -25%). Mid systolic notching flow pattern of the right ventricular outflow tract consistent with an elevation in pulmonary vascular resistance. Estimated right ventricular systolic pressure 71 mmHg (right atrial pressure of 10 mmHg). Pulmonary artery pulsatility index (ratio of pulmonary artery pulse pressure to right atrial pressure) is 5.4. ATRIA:Moderately enlarged left atrial size. Left atrial volume index 46 ml/m2. Enlarged right atrial size by visual estimate. CARDIAC VALVES:Trileaflet aortic valve. Mildly thickened aortic valve. Trivial aortic valve regurgitation. Mildly thickened mitral valve. Mildly calcified mitral annulus. Trivial mitral valve regurgitation. Normal pulmonary valve. Normal pulmonary valve systolic velocities. Mild pulmonary valve regurgitation. Tricuspid annulus dilatation. Moderate-severe tricuspid valve regurgitation. Tricuspid regurgitant volume (PISA) 49 ml. Tricuspid regurgitation ERO (PISA) 0.38 cm2. OTHER ECHO FINDINGS:Enlarged inferior vena cava size with normal inspiratory collapse (>50%). Normal mid ascending aorta diameter of 32 mm. Abdominal aorta incompletely visualized. Normal abdominal aorta Doppler flow pattern. Intrapulmonary shunt has been identified on 08/13/2022 echocardiogram; shunt study was not repeated. No intracardiac mass or thrombus, but the left atrial appendage cannot be visualized adequately with transthoracic echo to exclude thrombus in this location. No ??pericardial effusion. For the complete report, see the Order-Level Documents. Narrative 07/30/2023 12:23 PM CRUSHED STONE GRADER For the complete report, see the Order-Level Documents. Hemodynamics Heart Rate: 70 BPM Blood Pressure: 116 / 75 mmHg ECG: Sinus rhythm with ectopics Final Impressions 1. Severely enlarged left ventricular chamber size (D-shaped), no regional wall motion abnormalities, calculated 3-D volumetric ejection fraction 59%. 2. Severely enlarged right ventricular chamber size, mild-moderately reduced systolic function, averaged right ventricular free wall longitudinal peak systolic strain is -22% (normal </= -25%), estimated right ventricular systolic pressure 71 mmHg (right atrial pressure of 10 mmHg). 3. Moderate-severe tricuspid valve regurgitation, ERO (PISA) 0.38 cm2, regurgitant volume (PISA) 49 ml. 4. Enlarged inferior vena cava size with normal inspiratory collapse (>50%). 5. No ??pericardial effusion. 6. Compared to the report of 12/06/2022 the following changes have occurred: The right ventricle measures larger. The tricuspid regurgitation has increased. ??Side by side comparison of images performed. Procedure Note Usha Reyez M.D., M.P.H. - 07/30/2023 For the complete report, see the Order-Level Documents. Hemodynamics Heart Rate: 70 BPM Blood Pressure: 116 / 75 mmHg ECG: Sinus rhythm with ectopics Final Impressions 1. Severely enlarged left ventricular chamber size (D-shaped), no regionalwall motion abnormalities, calculated 3-D volumetric ejection [id number]%. 2. Severely enlarged right ventricular chamber size, mild-moderatelyreduced systolic function, averaged right ventricular free walllongitudinal peak systolic strain is -22% (normal </= -25%), estimatedright ventricular systolic pressure 71 mmHg (right atrial pressure of 10mmHg). 3. Moderate-severe tricuspid valve regurgitation, ERO (PISA) 0.38 cm2,regurgitant volume (PISA) 49 ml. 4. Enlarged inferior vena cava size with normal inspiratory collapse(>50%). 5. No pericardial effusion. 6. Compared to the report of 12/06/2022 the following changes haveoccurred: The right ventricle measures larger. The tricuspid regurgitationhas increased. Side by side comparison of images performed. Findings Anemia, thyrotoxicosis, or another high output state could contribute tothe increased Doppler velocities (Hemoglobin 7.7 g/dL). LEFT VENTRICLE:Severely enlarged left ventricular chamber size based on3-D volumetrics. D-shaped left ventricle. Abnormal left ventriculargeometry with eccentric left ventricular hypertrophy. Calculated 3-Dvolumetric left ventricular ejection fraction 59%. Left ventricularcardiac index 3.26 l/min/m2. Left ventricular stroke volume index 47ml/m2. No regional wall motion abnormalities. Indeterminate leftventricular filling pressure. RIGHT VENTRICLE:Severely enlarged right ventricular chamber size.Mild-moderately reduced right ventricular systolic function. Averagedright ventricular free wall longitudinal peak systolic strain is -22%(normal </= -25%). Mid systolic notching flow pattern of the rightventricular outflow tract consistent with an elevation in pulmonaryvascular resistance. Estimated right ventricular systolic pressure 71 mmHg(right atrial pressure of 10 mmHg). Pulmonary artery pulsatility index(ratio of pulmonary artery pulse pressure to right atrial pressure) is5.4. ATRIA:Moderately enlarged left atrial size. Left atrial volume index 46ml/m2. Enlarged right atrial size by visual estimate. CARDIAC VALVES:Trileaflet aortic valve. Mildly thickened aortic valve.Trivial aortic valve regurgitation. Mildly thickened mitral valve. Mildlycalcified mitral annulus. Trivial mitral valve regurgitation. Normalpulmonary valve. Normal pulmonary valve systolic velocities. Mildpulmonary valve regurgitation. Tricuspid annulus dilatation.Moderate-severe tricuspid valve regurgitation. Tricuspid regurgitantvolume (PISA) 49 ml. Tricuspid regurgitation ERO (PISA) 0.38 cm2. OTHER ECHO FINDINGS:Enlarged inferior vena cava size with normalinspiratory collapse (>50%). Normal mid ascending aorta diameter of 32 mm.Abdominal aorta incompletely visualized. Normal abdominal aorta Dopplerflow pattern. Intrapulmonary shunt has been identified on 08/13/2022echocardiogram; shunt study was not repeated. No intracardiac mass orthrombus, but the left atrial appendage cannot be visualized adequatelywith transthoracic echo to exclude thrombus in this location. Nopericardial effusion. For the complete report, see the Order-Level Documents. Matthew Mayes M.D. CV ECHO PROCEDURES * (ABNORMAL) SPSMA Result (07/30/2023 10:00 AM CRUSHED STONE GRADER) Only the most recent of2 resultswithin the time period is included. Neutrophilic Segs and Bands 66 50 - 75 % 07/30/2023 11:47 AM CRUSHED STONE GRADER DHPM Lymphocytes 14(L) 18 - 42 % 07/30/2023 11:47 AM CRUSHED STONE GRADER DHPM Monocytes 7 2 - 11 % 07/30/2023 11:47 AM CRUSHED STONE GRADER DHPM Basophils 1 0 - 2 % 07/30/2023 11:47 AM CRUSHED STONE GRADER DHPM Metamyelocytes 2(H) <1 % 07/30/2023 11:47 AM CRUSHED STONE GRADER DHPM Myelocytes 10(H) <0.5 % 07/30/2023 11:47 AM CRUSHED STONE GRADER DHPM Nucleated RBC 125 /100 WBC 07/30/2023 11:47 AM CRUSHED STONE GRADER [facility] Manual Absolute Neutrophil Count 13.46(H) 1.56 - 6.45 x10(9)/L 07/30/2023 11:47 AM CRUSHED STONE GRADER [facility] Comment: ----ADDITIONAL INFORMATION---- The manual absolute neutrophil count is derived from a manual differential count and therefore is not exactly comparable to the automated absolute neutrophil count. Blood 07/30/2023 10:0 0 AM CRUSHED STONE GRADER 07/30/2023 10:22 AM CRUSHED STONE GRADER Matthew Mayes M.D. LAB BLOOD ADD-ON Performing Organization Address City/[facility]/[place] [address] * Thyroid Function [place] (07/30/2023 10:00 AM CRUSHED STONE GRADER) TSH, Sensitive 2.1 0.3 - 4.2 mIU/L 07/30/2023 11:09 AM CRUSHED STONE GRADER DT Blood (Blood, Venous) 07/30/2023 10:00 AM CRUSHED STONE GRADER 07/30/2023 10:34 AM CRUSHED STONE GRADER Matthew Mayes M.D. LAB BLOOD ADD-ON Performing Organization Address [facility] [place] [address], [place] [address] * Potassium, Plasma (07/30/2023 10:00 AM CRUSHED STONE GRADER) Only the most recent of2 resultswithin the time period is included. Potassium, P 4.3 3.6 - 5.2 mmol/L 07/30/2023 10:51 AM CRUSHED STONE GRADER DTL Blood (Blood, Venous) 07/30/2023 10:00 AM CRUSHED STONE GRADER 07/30/2023 10:34 AM CRUSHED STONE GRADER Matthew Mayes M.D. LAB BLOOD ADD-ON Performing Organization Address City/[facility]/ZIP Co de Phone Number [facility] 200 [place], [place] [phone] [place] [address] * (ABNORMAL) NT-Pro B-Type Natriuretic Peptide (BNP) (07/30/2023 10:00 AM CRUSHED STONE GRADER) NT-Pro BNP 3475(H) <=226 pg/mL 07/30/2023 11:09 AM CRUSHED STONE GRADER DTL Comment: NT-proBNP values less than 300 pg/mL have a 99% negative predictive value for excluding acute congestive heart failure. A cutoff of 1200 pg/mL for patients with an eGFR<60 yields a diagnostic sensitivity and specificity of 89% and 72% for acute congestive heart failure. A diagnostic NT-proBNP cutoff of 900 pg/mL has been suggested in adults 50-75 years of age in the absence of renal failure. Blood (Blood, Venous) 07/30/2023 10:00 AM CRUSHED STONE GRADER 07/30/2023 10:34 AM CRUSHED STONE GRADER Matthew Mayes M.D. LAB BLOOD ADD-ON Performing Organization Address [facility] Co de Phone Number [facility] 200 [place], [place] [address] [place] [address] * (ABNORMAL) CBC with Differential, Blood (07/30/2023 10:00 AM CRUSHED STONE GRADER) Only the most recent of2 resultswithin the time period is included. Hemoglobin 7.7(L) 11.6 - 15.0 g/dL 07/30/2023 10:32 AM CRUSHED STONE GRADER DTL Hematocrit 26.1(L) 35.5 - 44.9 % 07/30/2023 10:32 AM CRUSHED STONE GRADER DTL Erythrocytes 2.72(L) 3.92 - 5.13 x10(12)/L 07/30/2023 10:32 AM CRUSHED STONE GRADER DTL MCV 96.0 78.2 - 97.9 fL 07/30/2023 10:32 AM CRUSHED STONE GRADER DTL RBC Distrib Width 25.2(H) 12.2 - 16.1 % 07/30/2023 10:32 AM CRUSHED STONE GRADER DTL Platelet Count 682(H) 157 - 371 x10(9)/L 07/30/2023 10:32 AM CRUSHED STONE GRADER DTL Leukocytes 20.4(H) 3.4 - 9.6 x10(9)/L 07/30/2023 11:46 AM CRUSHED STONE GRADER DTL Comment:Corrected for normob lasts. Neutrophils See Comment 1.56 - 6.45 x10(9)/L 07/30/2023 11:46 AM CRUSHED STONE GRADER [facility] Comment:Auto-diff results no t valid. See manual differential. Blood (Blood, Venous) 07/30/2023 10:00 AM CRUSHED STONE GRADER 07/30/2023 10:22 AM CRUSHED STONE GRADER Matthew Mayes M.D. LAB BLOOD ADD-ON Performing Organization Address City/[facility]/ZIP Co de Phone Number [facility] [address] [facility] [address] [place] [address] * (ABNORMAL) BUN (Blood Urea Nitrogen) (07/30/2023 10:00 AM CRUSHED STONE GRADER) [facility] BUN (Blood Urea Nitrogen), S 24(H) 6 - 21 mg/dL 07/30/2023 11:09 AM CRUSHED STONE GRADER DTL Blood (Blood, Venous) 07/30/2023 10:00 AM CRUSHED STONE GRADER 07/30/2023 10:34 AM CRUSHED STONE GRADER Matthew Mayes M.D. LAB BLOOD ADD-ON [facility] [address] [facility] 200 [place] [address] * (ABNORMAL) AST (Aspartate Aminotransferase) (07/30/2023 10:00 AM CRUSHED STONE GRADER) Aspartate Aminotransferase (AST), S 45(H) 8 - 43 U/L 07/30/2023 11:09 AM CRUSHED STONE GRADER DT Blood (Blood, Venous) 07/30/2023 10:00 AM CRUSHED STONE GRADER 07/30/2023 10:34 AM CRUSHED STONE GRADER Matthew Mayes M.D. LAB BLOOD ADD-ON [facility] [address] [place] [address] * Sodium (07/30/2023 10:00 AM CRUSHED STONE GRADER) Sodium, S 142 135 - 145 mmol/L 07/30/2023 11:09 AM CRUSHED STONE GRADER DT Blood (Blood, Venous) 07/30/2023 10:00 AM CRUSHED STONE GRADER 07/30/2023 10:34 AM CRUSHED STONE GRADER Matthew Mayes M.D. LAB BLOOD ADD-ON [facility] [address] [place] [address] * (ABNORMAL) Alkaline Phosphatase (07/30/2023 10:00 AM CRUSHED STONE GRADER) Alkaline Phosphatase, S 209(H) 35 - 104 U/L 07/30/2023 11:09 AM CRUSHED STONE GRADER DT Blood (Blood, Venous) 07/30/2023 10:00 AM CRUSHED STONE GRADER 07/30/2023 10:34 AM CRUSHED STONE GRADER Matthew Mayes M.D. LAB BLOOD ADD-ON [facility] [address] [place] [address] * (ABNORMAL) Creatinine with Estimated GFR (07/30/2023 10:00 AM CRUSHED STONE GRADER) [facility] Creatinine 1.08(H) 0.59 - 1.04 mg/dL 07/30/2023 11:09 AM CRUSHED STONE GRADER DTL Estimated GFR (eGFR) 61 >=60 mL/min/BSA 07/30/2023 11:09 AM CRUSHED STONE GRADER DTL Comment: Estimated GFR calculated using the 2020 CKD_EPI creatinine equation. Blood (Blood, Venous) 07/30/2023 10:00 AM CRUSHED STONE GRADER 07/30/2023 10:34 AM CRUSHED STONE GRADER Matthew Mayes M.D. LAB BLOOD ADD-ON Performing Organization Address City/[facility]/[place] [address] * Bilirubin, Total (07/30/2023 10:00 AM CRUSHED STONE GRADER) [facility] Bilirubin, Total, S 0.4 0.0 - 1.2 mg/dL 07/30/2023 11:09 AM CRUSHED STONE GRADER DT Blood (Blood, Venous) 07/30/2023 10:00 AM CRUSHED STONE GRADER 07/30/2023 10:34 AM CRUSHED STONE GRADER Matthew Mayes M.D. LAB BLOOD ADD-ON Performing Organization Address City/[facility]/ZIP Co de Phone Number [id number] [place] [address] * (ABNORMAL) Hematology/Oncology - Blood, External Lab Results (07/09/2023 10:38 AM CRUSHED STONE GRADER) Only the most recent of2 resultswithin the time period is included. Pathologist [facility] EXT Hemoglobin 7.2(A) 12.0 - 16.0 g/dL [facility] EXT Hematocrit 24.6(A) 33.0 - 51.0 % [facility] EXT Erythrocytes 2.52(A) 4.00 - 5.20 M/uL [facility] EXT MCV 98 80 - 100 fL [facility] EXT Leukocytes 51.51(A) 4.50 - 11.0 K/uL [facility] EXT Absolute Neutrophil Count 15.2(A) 1.7 - 7.0 K/uL [facility] EXT Platelet Count 964(A) 140 - 440 K/uL [facility] Blood 07/09/2023 10:3 8 AM CRUSHED STONE GRADER Historical Provider LAB BLOOD NON ADD-ON [facility] [address] [phone] * Uric Acid (07/02/2023 7:08 AM CRUSHED STONE GRADER) Pathologist [facility] Uric Acid, S 5.3 2.7 - 6.1 mg/dL 07/02/2023 8:59 AM CRUSHED STONE GRADER DTL Blood (Blood, Venous) 07/02/2023 7:08 AM CRUSHED STONE GRADER 07/02/2023 7:45 AM CRUSHED STONE GRADER Janusz Ardon LAB BLOOD ADD-ON [facility] 200 [place] [address], [facility] 200 [place] [address] * (ABNORMAL) Comprehensive Metabolic Panel (07/02/2023 7:08 AM CRUSHED STONE GRADER) Pathologist [facility] Potassium, S CANCELED mmol/L 07/02/2023 9:12 AM CRUSHED STONE GRADER DTL Comment: Duplicate test request. Result canceled by the ancillary. Sodium, S 139 135 - 145 mmol/L 07/02/2023 8:59 AM CRUSHED STONE GRADER DTL Chloride, S 101 98 - 107 mmol/L 07/02/2023 8:59 AM CRUSHED STONE GRADER DTL Bicarbonate, S 28 22 - 29 mmol/L 07/02/2023 8:59 AM CRUSHED STONE GRADER DTL Anion Gap 10 7 - 15 07/02/2023 8:59 AM CRUSHED STONE GRADER DTL BUN (Blood Urea Nitrogen), S 31(H) 6 - 21 mg/dL 07/02/2023 8:59 AM CRUSHED STONE GRADER DTL Creatinine 1.06(H) 0.59 - 1.04 mg/dL 07/02/2023 8:59 AM CRUSHED STONE GRADER DTL Estimated GFR (eGFR) 62 >=60 mL/min/BS A 07/02/2023 8:59 AM CRUSHED STONE GRADER DTL Comment: Estimated GFR calculated using the 2020 CKD_EPI creatinine equation. Calcium, Total, S 9.1 8.6 - 10.0 mg/dL 07/02/2023 8:59 AM CRUSHED STONE GRADER DTL Glucose, S 100 70 - 140 mg/dL 07/02/2023 8:59 AM CRUSHED STONE GRADER DTL Protein, Total, S 6.2(L) 6.3 - 7.9 g/dL 07/02/2023 8:59 AM CRUSHED STONE GRADER DTL Albumin, S 4.3 3.5 - 5.0 g/dL 07/02/2023 8:59 AM CRUSHED STONE GRADER DTL Aspartate Aminotransferase (AST), S 50(H) 8 - 43 U/L 07/02/2023 8:59 AM CRUSHED STONE GRADER DTL Alkaline Phosphatase, S 234(H) 35 - 104 U/L 07/02/2023 8:59 AM CRUSHED STONE GRADER DTL Alanine Aminotransferase (ALT), S 65(H) 7 - 45 U/L 07/02/2023 8:59 AM CRUSHED STONE GRADER DTL Bilirubin, Total, S 0.5 0.0 - 1.2 mg/dL 07/02/2023 8:59 AM CRUSHED STONE GRADER DTL Blood (Blood, Venous) 07/02/2023 7:08 AM CRUSHED STONE GRADER 07/02/2023 7:45 AM CRUSHED STONE GRADER Janusz Ardon LAB BLOOD ADD-ON [facility] [address] [place] [address], [place] [facility] [address] [place] [address] * Lipase (07/02/2023 7:06 AM CRUSHED STONE GRADER) Lipase, S 29 13 - 60 U/L 07/02/2023 12:04 PM CRUSHED STONE GRADER DTL Blood 07/02/2023 7:06 AM CRUSHED STONE GRADER 07/02/2023 11:42 AM CRUSHED STONE GRADER Janusz Higgins.B.S. LAB BLOOD ADD-ON Performing Organization Address City/[facility]/ZIP Co de Phone Number [facility] [address] [place] [address], [facility] 200 [place] [address] * Amylase, Total (07/02/2023 7:06 AM CRUSHED STONE GRADER) Amylase, Total, S 41 28 - 100 U/L 07/02/2023 12:04 PM CRUSHED STONE GRADER DTL Blood (Blood, Venous) 07/02/2023 7:06 AM CRUSHED STONE GRADER 07/02/2023 11:42 AM CRUSHED STONE GRADER Janusz Dillon.Cain.B.S. LAB BLOOD ADD-ON Performing Organization Address [facility] Co de Phone Number [facility] [address] [place] [address], [facility] 200 [place] [address] from Last 3 Months Additional Health Concerns Infection Onset Date Last Indicated Protective Environment 01/22/2023 3 Advance Directives For more information, please contact: [phone] Latest Code Status on File Code Status Date Activated Date Inactivated Comments Full Code 03/13/2022 8:14 PM 03/18/2022 12:42 PM Question Answer Comments Full Code: Discussed Code Status History Code Status Date Activated Date Inactivated Comments Full Code 06/06/2021 1:51 PM 06/11/2021 6:52 PM Question Answer Comments Full Code: Discussed Care Teams Bi Tester Relationship Specialty Start Date End Date Elsewhere, Pcp PCP - General 11/04/21
--- OUTSIDE RECORDS SUMMARY | 2023-08-21 10:21 | XMS_ITS | Encounter Summary ---
Author Name Unknown Organization [facility] Address [address] [place] [address] Care Team Providers Care Wastewater Treatment Plant Instructor Name Role Phone Elsewhere, Pcp Primary Care Provider Unavailabl e Encounter Details Date Type Department Care Team (Late st Contact Info) Description 08/20/2023 Specialty Pharmacy [facility] [address] [place] [phone] Ariana Streeter C.Ph.T. 200 [place] [address] Social History Tobacco Use Types Packs/Day Years [...] Sex Assigned at Female 07/24/2021 11:03 AM BILLBOARD ERECTOR HELPER Gender Identity Female 07/24/2021 11:03 AM BILLBOARD ERECTOR HELPER Sexual Orientation Straight 07/24/2021 11 :03 AM BILLBOARD ERECTOR HELPER documented as of this encounter Plan of Treatment Not on file documented as of this encounter Visit Diagnoses Not on filedocumented in this encounter Additional Health Concerns Infection Onset Date Last Indicated Resolved Time Protective Environment 01/22/2023 01/22/2023 documented as of this encounter Care Teams Wastewater Treatment Plant Instructor Relationship Specialty Start Date End Date Elsewhere, Pcp PCP - General 11/04/21 documented as of this encounter
--- OUTSIDE RECORDS SUMMARY | 2023-08-21 10:21 | XMS_ITS | Encounter Summary ---
Author Name Unknown Organization [facility] Address [address] [place] [address] Care Team Providers Care Change Control Analyst Name Role Phone Elsewhere, Pcp Primary Care Provider Unavailabl e Encounter Details Date Type Department Care Team (Latest Contact Info) Description 07/31/2023 10:30 AM DONOR RELATIONS MANAGER Education Department of Cardiovascular Medicine in [place], [place] [address] [place] [phone] Matthew Mayes M.D. [address] [place] [phone] Aide Mueller REstefania [address] [place] [phone] Hypertension Pulmonary Primary (HCC); Hypertension Pulmonary (HCC); Myelofibrosis (HCC); Dyspnea On Exertion; Medication Therapy Group Home Not Anticoagulant Social History Tobacco Use Types Packs/Day Years [...] Sex Assigned at Female 07/24/2021 11:03 AM DONOR RELATIONS MANAGER Gender Identity Female 07/24/2021 11:03 AM DONOR RELATIONS MANAGER Sexual Orientation Straight 07/24/2021 11 :03 AM DONOR RELATIONS MANAGER documented as of this encounter Progress Notes * iAde Mueller RZahraaN. - 07/31/2023 10:30 AM CST Consent for Principal Care Management. was obtained from the patient. The patient was informed thata charge, based on the level of service, will be billed to their insurance each month. Only one health care provider can provide Chronic Care Management services at a time. Patients have the right tostop Chronic Care Management services at any time by letting their care team know. The patient can contact their insurance company if they have any questions on Chronic Care Management coverage or [facility] Patient Account Services if they have any questions about their bill. R RELATIONS MANAGER documented in this encounter Plan of Treatment Not on file documented as of this encounter Visit Diagnoses Diagnosis Hypertension Pulmonary Primary (HCC) Hypertension Pulmonary (HCC) Myelofibrosis (HCC) Dyspnea On Exertion Medication Therapy Pearl Stringer Not Anticoagulant documented in this encounter Additional Health Concerns Infection Onset Date Last Indicated Resolved Time Protective Environment 01/22/2023 01/22/2023 documented as of this encounter Care Teams Change Control Analyst Relationship Specialty Start Date End Date Elsewhere, Pcp PCP - General 11/04/21 documented as of this encounter
--- OUTSIDE RECORDS SUMMARY | 2023-08-21 10:21 | XMS_ITS ---
Author Name Unknown Organization [facility] Address [address] [place] [address] Care Team Providers Care Import/Export Agent Name Role Phone Unavailable Unavailable Unavailable Surgery Details Not on file Complications Check Surgery Details section. Procedure Estimated Blood Loss Check Surgery Details section. Procedure Findings Check Surgery Details section. Procedure Specimens Taken Check Surgery Details section.
--- OUTSIDE RECORDS SUMMARY | 2023-08-21 10:21 | XMS_ITS | Encounter Summary ---
Author Name Unknown Organization [facility] Address [address] [place] [address] Care Team Providers Care Voucher Examiner Name Role Phone Elsewhere, Pcp Primary Care Provider Unavailabl e Reason for Visit * Reason Onset Date Comments External Lab Entry 07/31/2023 Encounter Details Date Type Department Care Team (Latest Contact Info) Description 07/31/2023 Clinical Communication Division of Hematology in [place], [place] [address] [place] [phone] Janusz Govea M.B.BZahraaS. [address] [place] [phone] External Lab Entry Social History Tobacco Use [...] Sex Assigned at Female 07/24/2021 11:03 AM ZIPPER CUTTER Gender Identity Female 07/24/2021 11:03 AM ZIPPER CUTTER Sexual Orientation Straight 07/24/2021 11 :03 AM ZIPPER CUTTER documented as of this encounter Miscellaneous Notes * Telephone Encounter - Jocelyne Lang - 07/31/2023 12:59 PM CST Outside labs collected on 07/31/2023 have been received. The fax has been scanned into the patient record via [employer], and the CBC results are as noted below. Hemoglobin: 7.7 Hematocrit: 25.5 WBC: 39.69 ANC: 8.5 Platelets: 745 Please note: Are there additional labs reported on the outside report? No ER CUTTER documented in this encounter Plan of Treatment Not on file documented as of this encounter Visit Diagnoses Not on filedocumented in this encounter Additional Health Concerns Infection Onset Date Last Indicated Resolved Time Protective Environment 01/22/2023 01/22/2023 documented as of this encounter Care Teams Voucher Examiner Relationship Specialty Start Date End Date Elsewhere, Pcp PCP - General 11/04/21 documented as of this encounter
--- OUTSIDE RECORDS SUMMARY | 2023-08-21 10:21 | XMS_ITS | Encounter Summary ---
Author Name Unknown Organization [facility] Address [address] [place] [address] Care Team Providers Care Tag Machine Operator Name Role Phone Elsewhere, Pcp Primary Care Provider Unavailabl e Reason for Visit * Reason Onset Date Comments Rx Denial 08/15/2023 SILDENAFIL CITRA TE TABLET Encounter Details Date Type Department Care Team (Latest Contact Info) Description 08/07/2023 Clinical Communication Department of Cardiovascular Medicine in [place], [place] [address] [place] [phone] Matthew Mayes M.D. [address] [place] [phone] Rx Denial (SILDENAFIL CITRATE TABLET) Social History Tobacco Use Types Packs/Day Years [...] Sex Assigned at Female 07/24/2021 11:03 AM RACE STARTER Gender Identity Female 07/24/2021 11:03 AM RACE STARTER Sexual Orientation Straight 07/24/2021 11 :03 AM RACE STARTER documented as of this encounter Miscellaneous Notes * Telephone Encounter - Olya, Zurisadai, R.N. - 08/19/2023 9:19 AM RACE STARTER Appeal paperwork resent with answered questions an progress notes and clinicals! STARTER documented in this encounter Plan of Treatment Not on file documented as of this encounter Visit Diagnoses Not on filedocumented in this encounter Additional Health Concerns Infection Onset Date Last Indicated Resolved Time Protective Environment 01/22/2023 01/22/2023 documented as of this encounter Care Teams Tag Machine Operator Relationship Specialty Start Date End Date Elsewhere, Pcp PCP - General 11/04/21 documented as of this encounter
--- OUTSIDE RECORDS SUMMARY | 2023-08-21 10:21 | XMS_ITS | Encounter Summary ---
Author Name Unknown Organization [facility] Address [address] [place] [id number] Care Team Providers Care Solar Sales Associate Name Role Phone Elsewhere, Pcp Primary Care Provider Unavailabl e Reason for Visit * Reason Onset Date Comments Order Request 08/04/2023 Encounter Details Date Type Department Care Team ([facility] st Contact Info) Description 08/04/2023 Clinical Communication Division of Hematology in [place], [place] [address] [place] [phone] Janusz Govea M.B.BZahraaS. [address] [place] [phone] Order Request Social History Tobacco Use Types Packs/Day Years [...] Sex Assigned at Female 07/24/2021 11:03 AM H[employer]SE [employer] Gender Identity Female 07/24/2021 11:03 AM [employer]SE [employer] Sexual Orientation Straight 07/24/2021 11 :03 AM HORSE RACE [employer]ER documented as of this encounter Miscellaneous Notes * Telephone Encounter - Jocelyne Lang - 08/04/2023 11:19 AM CST Outside labs collected on 08/04/2023 have been received. The fax has been scanned into the patient record via [employer], and the CBC results are as noted below. Hemoglobin: 8.1 Hematocrit: 27.3 WBC: 45.08 ANC: 20.2 Platelets: 910 Please note: Are there additional labs reported on the outside report? No E RACE TIMER documented in this encounter Plan of Treatment Not on file documented as of this encounter Visit Diagnoses Not on filedocumented in this encounter Additional Health Concerns Infection Onset Date Last Indicated Resolved Time Protective Environment 01/22/2023 01/22/2023 documented as of this encounter Care Teams Solar Sales Associate Relationship Specialty Start Date End Date Elsewhere, Pcp PCP - General 11/04/21 documented as of this encounter
--- OUTSIDE RECORDS SUMMARY | 2023-08-21 10:21 | XMS_ITS | Clinical Summary ---
Author Name Unknown Organization [facility] Address [address] [place] [address] Care Team Providers Care Welding Pantograph Operator Name Role Phone Elsewhere, Pcp Primary Care Provider Unavailabl e Source Comments Patient records contain information from all sites at [facility]. For routine questions regarding patient records, call [phone] during business hours, M-F 8:00 AM - 5:00 PM Central Time. Record requests for emergency care only can be directed to [phone] at any time.[facility] Allergies No known active allergies Medications Medication Sig Dispensed Refills Start Date End Date Status sennosides (SENOKOT) 8.6 mg tablet Take 1 tablet by mouth 2 (two) times a day as needed. 0 03/07/2016 Active sodium-potassium bicarbonate (AVSYL-SELTZER GOLD) 344-1,050-1,000 mg tablet, effervescent Take 1 [...] follow up with your provider, Contact RN lpn care manager for sudden weight gain or worsening symptoms/side effects, and Contact EMS for emergent conditions Current functional limitations: Class III: symptoms with less than ordinary physical activity and significant limitations with physical activity Assistive devices/DME used: Current Community Resources: outpatient lab, [facility] Problem Noted Date Diagnosed Date Hypertension Pulmonary Primary 12/16/2022 Anemia Of Chronic Disease 03/12/2022 Chronic Pain Syndrome 03/12/2022 Dyspnea On Exertion 06/29/2021 Overview: Added automatically from request for surgery [id number] Hypertension Pulmonary 06/11/2021 Hyperuricemia 06/08/2021 Edema 06/08/2021 Elevated Creatinine 06/08/2021 Gastroesophageal Reflux Disease 06/08/2021 Splenomegaly Acquired 06/06/2021 Overview: Added automatically from request for surgery [id number] Pancytopenia 06/06/2021 Fluid Overload Unspecified 06/06/2021 Anxiety 06/06/2021 Insomnia 06/06/2021 Tachycardia Sinus 06/06/2021 Hyperphosphatemia 06/06/2021 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 08/18/2023 Clinical Communication Division of Hematology in [place], [place] [address] [place] [address] Janusz Govea M.B.B.S. External Lab Entry 08/11/2023 Clinical Communication Division of Hematology in [place], [place] [address] [place] [address] Janusz Govea M.B.B.S. External Lab Entry 08/07/2023 Clinical Communication Department of Cardiovascular Medicine in [place], [place] [address] [place] [address] Matthew Mayes M.D. Rx Denial (SILDENAFIL CITRATE TABLET) 08/04/2023 Clinical Communication Division of Hematology in [place], [place] [address] [place] [address] Janusz Govea M.B.B.S. Order Request 07/31/2023 10:30 AM INDUSTRIAL X RAY OPERATOR Education Department of Cardiovascular Medicine in [place], [place] [address] [place] [phone] Matthew Mayes M.D. Sandstrom, Kathy A, R.N. 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 External Lab Entry 07/31/2023 Episode Changes Department of Cardiovascular Medicine in [address] [phone] Aide Mueller R.N. 07/30/2023 2:00 PM INDUSTRIAL X RAY OPERATOR Office Visit Department of Cardiovascular Medicine in [place], [place] [address] [place] [phone] Matthew Mayes M.D. Hypertension Pulmonary Primary (HCC) (Primary Dx); Hypertension Pulmonary (HCC); Myelofibrosis (HCC); Dyspnea On Exertion; Medication Therapy [facility] Not Anticoagulant 07/30/2023 12:27 PM INDUSTRIAL X RAY OPERATOR - 07/30/2023 11:59 PM INDUSTRIAL X RAY OPERATOR Hospital Encounter Department of Cardiac Rehabilitation in [place], [place] [address] [place] [phone] Matthew Mayes M.D. Hypertension Pulmonary (HCC); Myelofibrosis (HCC); Dyspnea On Exertion Discharge Disposition: Home or Self Care 07/30/2023 10:09 AM INDUSTRIAL X RAY OPERATOR - 07/30/2023 12:26 PM INDUSTRIAL X RAY OPERATOR Hospital Encounter Department of Cardiovascular Diseases in [place], [place] [address] [place] [phone] Matthew aMyes M.D. Hypertension Pulmonary (HCC); Myelofibrosis (HCC); Dyspnea On Exertion Discharge Disposition: Home or Self Care 07/30/2023 9:35 AM INDUSTRIAL X RAY OPERATOR - 07/30/2023 10:08 AM INDUSTRIAL X RAY OPERATOR Hospital Encounter Department of Laboratory Medicine and Pathology, [facility] in [place], [place] [address] [place] [phone] Matthew Mayes M.D. Hypertension Pulmonary (HCC); Myelofibrosis (HCC); Dyspnea On Exertion Discharge Disposition: Home or Self Care 07/28/2023 12:00 PM INDUSTRIAL X RAY OPERATOR Clinical Communication Virtual Review in [place], [place] [address] [place] [address] Pre-visit Intake 07/25/2023 Specialty Pharmacy [facility] [address] [place] [address] Cathi Michael, Pharm.D., R.Ph. Myelofibrosis Primary (HCC) (Primary Dx) 07/23/2023 Clinical Communication Division of Hematology in [place], [place] [address] [place] [address] Janusz Govea M.B.B.S. External Lab Entry 07/18/2023 Specialty Pharmacy [facility] [address] [place] [address] Matthew Travis Jr., R.Ph. 07/17/2023 Clinical Communication Division of Hematology in [place], [place] [address] [place] [address] Janusz Govea M.B.B.S. Rx Denial (OMarycruzJAARA) 07/16/2023 Clinical Communication Division of Hematology in [place], [place] [address] [place] [address] Janusz Govea M.B.B.S. External Lab Entry 07/15/2023 Orders Only Pharmacy Prior Auth RO [phone] Linda Motley 07/09/2023 Clinical Communication Division of Hematology in [place], [place] [address] [place] [phone] Janusz Govea M.B.B.S. External Lab Entry 07/04/2023 Orders Only Virtual Review in [place], [place] [address] [place] [address] Janusz Govea M.B.B.S. 07/02/2023 11:00 AM INDUSTRIAL X RAY OPERATOR Office Visit Division of Hematology in [place], [place] [address] [place] [phone] Janusz Govea M.B.B.S. Myelofibrosis Primary (HCC) (Primary Dx) 07/02/2023 6:55 AM INDUSTRIAL X RAY OPERATOR - 07/02/2023 11:59 PM INDUSTRIAL X RAY OPERATOR Hospital Encounter Department of Laboratory Medicine and Pathology, [facility], in [place], [place] [address] [place] [phone] Janusz Gvoea M.B.B.S. Myelofibrosis Primary (HCC) Discharge Disposition: Home or Self Care 07/01/2023 10:15 AM INDUSTRIAL X RAY OPERATOR Clinical Communication Virtual Review in [place], [place] [address] [place] [address] 06/24/2023 Clinical Communication Division of Hematology in [place], [place] [address] [place] [phone] Janusz Govea M.B.B.SZahraa External Lab Entry 06/13/2023 Clinical Communication Division of Hematology in [place], [place] [address] [place] [phone] Janusz Govea M.B.B.SZahraa External Lab Entry 06/09/2023 Clinical Communication Division of Hematology in [place], [place] [address] [place] [phone] Janusz Govea M.B.B.S. External Lab Entry 06/03/2023 Clinical Communication Division of Hematology in [place], [place] [address] [place] [phone] Janusz Govea M.B.B.SZahraa External Lab Entry 05/30/2023 Clinical Communication Division of Hematology in [place], [place] [address] [place] [phone] Janusz Govea M.B.B.S. Forms (Exemption letter for Jury Duty) 05/23/2023 Refill Division of Hematology in [place], [place] [address] [place] [phone] Janusz Govea M.B.B.SZahraa Med Refill 05/23/2023 Refill Division of Hematology in [place], [place] [address] [place] [phone] Janusz Govea M.B.B.S. Med Refill 05/22/2023 Clinical Communication Division of Hematology in [place], [place] [address] [place] [address] Janusz Govea M.B.B.S. External Lab Entry from Last 3 Months Immunizations Name Administration Dates Next Due Hib (PRP-OMP) (PedvaxHIB) 06/06/2021 Influenza, Seasonal, Injectable 05/22/2018 MCV4 (Menactra)(Discontinued) 06/06/2021 MenB (BEXSERO) 06/06/2021 PCV13 06/06/2021 SARS-COV-2 (COVID-19) - MODERNA BIVALENT(Discont inued) 05/17/2022 SARS-COV-2 (COVID-19) - MODERNA(Discontinued) Td, (Adult) Unspecified 08/23/1998 influenza vaccine quad (FLUZ ONE/FLUARIX) (6 months and older)(PF) 05/17/2022,06/06/2021 Family History Medical History Relation Name Comments [...] Sex Assigned at Female 07/24/2021 11:03 AM INDUSTRIAL X RAY OPERATOR Gender Identity Female 07/24/2021 11:03 AM INDUSTRIAL X RAY OPERATOR Sexual Orientation Straight 07/24/2021 11 :03 AM INDUSTRIAL X RAY OPERATOR Last Filed Vital Signs Vital Sign Reading Time Taken Comments Blood Pressure 114/72 07/02/2023 10:49 AM INDUSTRIAL X RAY OPERATOR Pulse 85 07/02/2023 10:49 AM INDUSTRIAL X RAY OPERATOR Temperature 36.1 ??C (97 ??F) 07/02/2023 10:49 AM INDUSTRIAL X RAY OPERATOR Respiratory Rate 18 03/18/2022 10:31 AM CDT Oxygen Saturation 94% 03/18/2022 10:31 AM CDT Inhaled Oxygen Concentration - - Weight 105 kg (230 lb 9.6 oz) 07/02/2023 10:49 A M INDUSTRIAL X RAY OPERATOR Height 172.3 cm (5' 7.84) 07/02/2023 10:[address] Body Mass Index 35.23 07/02/2023 10:49 AM INDUSTRIAL X RAY OPERATOR Plan of Treatment Health Maintenance Due Date Last Done Comments CT Colonography 1968 Cologuard 1968 Colonoscopy 1968 Colorectal Cancer Screening 1968 FIT 1968 Generalized Anxiety (DUTCH-7) 1968 HIV Screening 1968 Hepatitis B Vaccines (1 of 3 - 3-dose series) 1968 Hepatitis C Screening 1968 Mammogram 1968 Zoster Vaccines (1 of 2) 1987 DTaP,Tdap,and Td Vaccines (1 - Tdap) 08/24/1998 08/23/1998 Controlled Substance Agreement 02/19/2019 Controlled Substance Monitor ing (PHQ-9) 02/19/2019 Controlled Substance Monitoring 02/19/2019 Opioid Risk Tool (ORT) 02/19/2019 PEG assessment for Opioid therapy 02/19/2019 Opioid Use Disorder (OUD) Screening 02/20/2019 Cervical Cancer Screening 04/11/2019 04/11/2016 Lipid (Cholesterol) Screening 05/01/2021 05/01/2016 MenB Vaccine (2 of 4 - Incre ased Risk Bexsero 2-dose series) 07/04/2021 06/06/2021, 06/06/2021 Meningococcal Vaccine (2 - R isk 2-dose series) 08/01/2021 06/06/2021 Pneumococcal vaccine (0-64 y ears) (2 of 2 - PPSV23 or PCV20) 08/01/2021 06/06/2021 Lung Cancer Screening 06/07/2022 06/07/2021 Depression Screening (Annual PHQ-2) 07/14/2023 Creatinine Level (Kidney Fun ction Test) 07/30/2024 07/30/2023, 07/02/2023, 01/22/2023, Additional history exists Potassium Level 07/30/2024 07/30/2023, 06/14, 01/22/2023, Additional history exists Sodium Level 07/30/2024 07/30/2023, 06/14, 01/22/2023, Additional history exists Fasting Glucose for Diabetes Screening 07/02/2026 07/02/2023, 01/22/2023, 12/06/2022, Additional history exists HIB Vaccines Completed 06/06/2021 COVID-19 Vaccine Completed 05/10/2023, 10/2021, 03/04/2022, Additional history exists Influenza Vaccine Completed 05/10/2023, , 06/06/2021, Additional history exists Medical Devices Implanted Type Area Psychiatric Rn Device Identifier Shelf Expiration Date Model / Serial / Lot Clp Laura Corey Md - [id number] Implanted:Qty : 1 on 03/13/2022 by Hema Rothman M.D. at [facility] Hardware e.g. pins/screws/ rods N/A: Abdomen [employer] [id number] / / Procedures Procedure Name Priority Date/Time Associated Diagnosis Comments 6 MINUTE WALK Routine 07/30/2023 12:30 PM INDUSTRIAL X RAY OPERATOR Hypertension Pulmonary (HCC) Myelofibrosis (HCC) Dyspnea On Exertion (TTE) 2D ECHO DOPPLER COLOR Routine 07/30/2023 11:41 AM INDUSTRIAL X RAY OPERATOR Hypertension Pulmonary (HCC) Myelofibrosis (HCC) Dyspnea On Exertion SPSMA RESULT Routine 07/30/2023 10:00 AM INDUSTRIAL X RAY OPERATOR POTASSIUM, PLASMA Routine 07/30/2023 10: 00 AM INDUSTRIAL X RAY OPERATOR Hypertension Pulmonary (HCC) Myelofibrosis (HCC) Dyspnea On Exertion NT-PRO B-TYPE NATRIURETIC PEPTIDE (BNP), S Routine 07/30/2023 10:00 AM INDUSTRIAL X RAY OPERATOR Hypertension Pulmonary (HCC) Myelofibrosis (HCC) Dyspnea On Exertion THYROID FUNCTION CASCADE, S Routine 07/30/2023 10:00 AM INDUSTRIAL X RAY OPERATOR Hypertension Pulmonary (HCC) Myelofibrosis (HCC) Dyspnea On Exertion BUN (BLOOD UREA NITROGEN), S/P Routine 07/30/2023 10:00 AM INDUSTRIAL X RAY OPERATOR Hypertension Pulmonary (HCC) Myelofibrosis (HCC) Dyspnea On Exertion BILIRUBIN, TOT, S/P Routine 07/30/2023 1 0:00 AM INDUSTRIAL X RAY OPERATOR Hypertension Pulmonary (HCC) Myelofibrosis (HCC) Dyspnea On Exertion ALKALINE PHOSPHATASE, S/P Routine 07/30/2023 10:00 AM INDUSTRIAL X RAY OPERATOR Hypertension Pulmonary (HCC) Myelofibrosis (HCC) Dyspnea On Exertion ASPARTATE AMINOTRANSFERASE (AST), S/P Routine 07/30/2023 10:00 AM INDUSTRIAL X RAY OPERATOR Hypertension Pulmonary (HCC) Myelofibrosis (HCC) Dyspnea On Exertion CREATININE WITH EGFR, S/P Routine 07/30/2023 10:00 AM INDUSTRIAL X RAY OPERATOR Hypertension Pulmonary (HCC) Myelofibrosis (HCC) Dyspnea On Exertion SODIUM, S/P Routine 07/30/2023 10:00 AM INDUSTRIAL X RAY OPERATOR Hypertension Pulmonary (HCC) Myelofibrosis (HCC) Dyspnea On Exertion CBC WITH DIFFERENTIAL, B Routine 024 10:00 AM INDUSTRIAL X RAY OPERATOR Hypertension Pulmonary (HCC) Myelofibrosis (HCC) Dyspnea On Exertion HEMATOLOGY/ONCOLOGY - BLOOD, EXTERNAL LAB RESULTS Routine 07/09/2023 10:38 AM INDUSTRIAL X RAY OPERATOR SPSMA RESULT Routine 07/02/2023 7:08 AM INDUSTRIAL X RAY OPERATOR Myelofibrosis Primary (HCC) POTASSIUM, PLASMA Routine 07/02/2023 7:0 8 AM INDUSTRIAL X RAY OPERATOR Myelofibrosis Primary (HCC) COMPREHENSIVE METABOLIC PANEL, S/P Routine 07/02/2023 7:08 AM INDUSTRIAL X RAY OPERATOR Myelofibrosis Primary (HCC) CBC WITH DIFFERENTIAL, B Routine 023 7:08 AM INDUSTRIAL X RAY OPERATOR Myelofibrosis Primary (HCC) URIC ACID, S/P Routine 07/02/2023 7:08 AM INDUSTRIAL X RAY OPERATOR Myelofibrosis Primary (HCC) LIPASE, S/P Routine 07/02/2023 7:06 AM INDUSTRIAL X RAY OPERATOR AMYLASE, TOT, S Routine 07/02/2023 7:06 AM INDUSTRIAL X RAY OPERATOR Myelofibrosis Primary (HCC) HEMATOLOGY/ONCOLOGY - BLOOD, EXTERNAL LAB RESULTS Routine 06/24/2023 9:22 AM INDUSTRIAL X RAY OPERATOR from Last 3 Months Results * 6 MINUTE WALK (07/30/2023 12:30 PM INDUSTRIAL X RAY OPERATOR) Narrative Linn Rey P.A.-C., M.S. - 07/30/2023 12:30 PM INDUSTRIAL X RAY OPERATOR Linn Rey P.A.-C., M.S. ? 07/31/2023 11:51 [...] - Somewhat Severe Time of Test: ??12:30 INDUSTRIAL X RAY OPERATOR Total Distance Walked (Feet): ??1360 Total Distance Walked (Meters): ??414.53 Total # of Times Stopped: ??0 Time Stopped (Seconds): ??0 Time Walked (Seconds): ??360 CALCULATIONS Estimated MPH: ??2.6 Estimated METs: ??2.99 % of Predicted Distance: ??87.65 Matthew Mayes M.D. CV STRESS PROCEDURE S * (TTE) 2D ECHO DOPPLER COLOR (07/30/2023 11:41 AM INDUSTRIAL X RAY OPERATOR) Ejection Fraction 59 MC CV EIMS Mid-Ascending [...] Laterality Modality Echocardiography 07/30/2023 10:3 0 AM INDUSTRIAL X RAY OPERATOR Impressions 07/30/2023 12:23 PM INDUSTRIAL X RAY OPERATOR Anemia, thyrotoxicosis, or another high output state [...] the Order-Level Documents. Narrative 07/30/2023 12:23 PM INDUSTRIAL X RAY OPERATOR For the complete report, see the Order-Level [...] regionalwall motion abnormalities, calculated 3-D volumetric ejection [id number]%. 2. Severely enlarged right ventricular chamber size, [...] * (ABNORMAL) SPSMA Result (07/30/2023 10:00 AM INDUSTRIAL X RAY OPERATOR) Only the most recent of2 resultswithin the time period is included. Neutrophilic Segs and Bands 66 50 - 75 % 07/30/2023 11:47 AM INDUSTRIAL X RAY OPERATOR [facility] Lymphocytes 14(L) 18 - 42 % 07/30/2023 11:47 AM INDUSTRIAL X RAY OPERATOR [facility] Monocytes 7 2 - 11 % 07/30/2023 11:47 AM INDUSTRIAL X RAY OPERATOR [facility] Basophils 1 0 - 2 % 07/30/2023 11:47 AM INDUSTRIAL X RAY OPERATOR [facility] Metamyelocytes 2(H) <1 % 07/30/2023 11:47 AM INDUSTRIAL X RAY OPERATOR [facility] Myelocytes 10(H) <0.5 % 07/30/2023 11:47 AM INDUSTRIAL X RAY OPERATOR [facility] Nucleated RBC 125 /100 WBC 07/30/2023 11:47 AM INDUSTRIAL X RAY OPERATOR [facility] Manual Absolute Neutrophil Count 13.46(H) 1.56 - 6.45 x10(9)/L 07/30/2023 11:47 AM INDUSTRIAL X RAY OPERATOR [facility] Comment: ----ADDITIONAL INFORMATION---- The manual absolute neutrophil count is derived from a manual differential count and therefore is not exactly comparable to the automated absolute neutrophil count. Blood 07/30/2023 10:0 0 AM INDUSTRIAL X RAY OPERATOR 07/30/2023 10:22 AM INDUSTRIAL X RAY OPERATOR Matthew Mayes M.D. LAB BLOOD ADD-ON Performing Organization Address City/[facility]/ZIP Co de Phone Number [facility] [address] [place] [address] * Thyroid Function [place] (07/30/2023 10:00 AM INDUSTRIAL X RAY OPERATOR) [facility] TSH, Sensitive 2.1 0.3 - 4.2 mIU/L 07/30/2023 11:09 AM INDUSTRIAL X RAY OPERATOR DTL Blood (Blood, Venous) 07/30/2023 10:00 AM INDUSTRIAL X RAY OPERATOR 07/30/2023 10:34 AM INDUSTRIAL X RAY OPERATOR Matthew Mayes M.D. LAB BLOOD ADD-ON [facility] [address] [place] [address] * Potassium, Plasma (07/30/2023 10:00 AM INDUSTRIAL X RAY OPERATOR) Only the most recent of2 resultswithin the time period is included. [facility] Potassium, P 4.3 3.6 - 5.2 mmol/L 07/30/2023 10:51 AM INDUSTRIAL X RAY OPERATOR DTL Blood (Blood, Venous) 07/30/2023 10:00 AM INDUSTRIAL X RAY OPERATOR 07/30/2023 10:34 AM INDUSTRIAL X RAY OPERATOR Matthew Mayes M.D. LAB BLOOD ADD-ON Performing Organization Address City/[facility] Co de Phone Number [facility] [address] [place] [address], [facility] [address] [place] [address] * (ABNORMAL) NT-Pro B-Type Natriuretic Peptide (BNP) (07/30/2023 10:00 AM INDUSTRIAL X RAY OPERATOR) [facility] NT-Pro BNP 3475(H) <=226 pg/mL 07/30/2023 11:09 AM INDUSTRIAL X RAY OPERATOR DTL Comment: NT-proBNP values less than 300 [...] failure. Blood (Blood, Venous) 07/30/2023 10:00 AM INDUSTRIAL X RAY OPERATOR 07/30/2023 10:34 AM INDUSTRIAL X RAY OPERATOR Matthew Mayes M.D. LAB BLOOD ADD-ON Performing Organization Address [facility] Co de Phone Number [facility] [address] [place] [address], [facility] [address] [place] [address] * (ABNORMAL) CBC with Differential, Blood (07/30/2023 10:00 AM INDUSTRIAL X RAY OPERATOR) Only the most recent of2 resultswithin the time period is included. [facility] Hemoglobin 7.7(L) 11.6 - 15.0 g/dL 07/30/2023 10:32 AM INDUSTRIAL X RAY OPERATOR DTL Hematocrit 26.1(L) 35.5 - 44.9 % 07/30/2023 10:32 AM INDUSTRIAL X RAY OPERATOR DTL Erythrocytes 2.72(L) 3.92 - 5.13 x10(12)/L 07/30/2023 10:32 AM INDUSTRIAL X RAY OPERATOR DTL MCV 96.0 78.2 - 97.9 fL 07/30/2023 10:32 AM INDUSTRIAL X RAY OPERATOR DTL RBC Distrib Width 25.2(H) 12.2 - 16.1 % 07/30/2023 10:32 AM INDUSTRIAL X RAY OPERATOR DTL Platelet Count 682(H) 157 - 371 x10(9)/L 07/30/2023 10:32 AM INDUSTRIAL X RAY OPERATOR DTL Leukocytes 20.4(H) 3.4 - 9.6 x10(9)/L 07/30/2023 11:46 AM INDUSTRIAL X RAY OPERATOR DTL Comment:Corrected for normob lasts. Neutrophils See Comment 1.56 - 6.45 x10(9)/L 07/30/2023 11:46 AM INDUSTRIAL X RAY OPERATOR [facility] Comment:Auto-diff results no t valid. See manual differential. Blood (Blood, Venous) 07/30/2023 10:00 AM INDUSTRIAL X RAY OPERATOR 07/30/2023 10:22 AM INDUSTRIAL X RAY OPERATOR Matthew Mayes M.D. LAB BLOOD ADD-ON [facility] [address] [place] [address], [facility] [address] [place], [place] [address] [place] [address] 200 [place] [address] * (ABNORMAL) BUN (Blood Urea Nitrogen) (07/30/2023 10:00 AM INDUSTRIAL X RAY OPERATOR) BUN (Blood Urea Nitrogen), S 24(H) 6 - 21 mg/dL 07/30/2023 11:09 AM INDUSTRIAL X RAY OPERATOR DTL Blood (Blood, Venous) 07/30/2023 10:00 AM INDUSTRIAL X RAY OPERATOR 07/30/2023 10:34 AM INDUSTRIAL X RAY OPERATOR Matthew Mayes M.D. LAB BLOOD ADD-ON [facility] [address] [place], [place] [phone] [place] [address] 200 [place] [address] * (ABNORMAL) AST (Aspartate Aminotransferase) (07/30/2023 10:00 AM INDUSTRIAL X RAY OPERATOR) Aspartate Aminotransferase (AST), S 45(H) 8 - 43 U/L 07/30/2023 11:09 AM INDUSTRIAL X RAY OPERATOR DTL Blood (Blood, Venous) 07/30/2023 10:00 AM INDUSTRIAL X RAY OPERATOR 07/30/2023 10:34 AM INDUSTRIAL X RAY OPERATOR Matthew Mayes M.D. LAB BLOOD ADD-ON Performing Organization Address City/[facility]/ZIP Co de Phone Number [facility] [address] [place], [place] [phone] [place] [address] 200 [place] [address] * Sodium (07/30/2023 10:00 AM INDUSTRIAL X RAY OPERATOR) Sodium, S 142 135 - 145 mmol/L 07/30/2023 11:09 AM INDUSTRIAL X RAY OPERATOR DTL Blood (Blood, Venous) 07/30/2023 10:00 AM INDUSTRIAL X RAY OPERATOR 07/30/2023 10:34 AM INDUSTRIAL X RAY OPERATOR Matthew Mayes M.D. LAB BLOOD ADD-ON Performing Organization Address City[facility]/ZIP Co de Phone Number [facility] [address] [place], [place] [address] [place] [address] 200 [place] [address] * (ABNORMAL) Alkaline Phosphatase (07/30/2023 10:00 AM INDUSTRIAL X RAY OPERATOR) Alkaline Phosphatase, S 209(H) 35 - 104 U/L 07/30/2023 11:09 AM INDUSTRIAL X RAY OPERATOR DTL Blood (Blood, Venous) 07/30/2023 10:00 AM INDUSTRIAL X RAY OPERATOR 07/30/2023 10:34 AM INDUSTRIAL X RAY OPERATOR Matthew Mayes M.D. LAB BLOOD ADD-ON Performing Organization Address City[facility]/ZIP Co de Phone Number [facility] [address] [place] [address], [facility] [address] [place] [address] * (ABNORMAL) Creatinine with Estimated GFR (07/30/2023 10:00 AM INDUSTRIAL X RAY OPERATOR) Creatinine 1.08(H) 0.59 - 1.04 mg/dL 07/30/2023 11:09 AM INDUSTRIAL X RAY OPERATOR DTL Estimated GFR (eGFR) 61 >=60 mL/min/BSA 07/30/2023 11:09 AM INDUSTRIAL X RAY OPERATOR DT Comment: Estimated GFR calculated using the 2020 CKD_EPI creatinine equation. Blood (Blood, Venous) 07/30/2023 10:00 AM INDUSTRIAL X RAY OPERATOR 07/30/2023 10:34 AM INDUSTRIAL X RAY OPERATOR Matthew Mayes M.D. LAB BLOOD ADD-ON Performing Organization Address City[facility]/ZIP Co de Phone Number [facility] [address] [place], [place] [address] [address] [place] [address] * Bilirubin, Total (07/30/2023 10:00 AM INDUSTRIAL X RAY OPERATOR) Bilirubin, Total, S 0.4 0.0 - 1.2 mg/dL 07/30/2023 11:09 AM INDUSTRIAL X RAY OPERATOR DT Blood (Blood, Venous) 07/30/2023 10:00 AM INDUSTRIAL X RAY OPERATOR 07/30/2023 10:34 AM INDUSTRIAL X RAY OPERATOR Matthew Mayes M.D. LAB BLOOD ADD-ON [facility] [address] [place], [place] [phone] [place] [address] 200 [place] [address] * (ABNORMAL) Hematology/Oncology - Blood, External Lab Results (07/09/2023 10:38 AM INDUSTRIAL X RAY OPERATOR) Only the most recent of2 resultswithin the time period is included. EXT Hemoglobin 7.2(A) 12.0 - 16.0 g/dL [facility] EXT Hematocrit 24.6(A) 33.0 - 51.0 % [facility] EXT Erythrocytes 2.52(A) 4.00 - 5.20 M/uL [facility] EXT MCV 98 80 - 100 fL [facility] EXT Leukocytes 51.51(A) 4.50 - 11.0 K/uL [facility] EXT Absolute Neutrophil Count 15.2(A) 1.7 - 7.0 K/uL [facility] EXT Platelet Count 964(A) 140 - 440 K/uL [facility] Blood 07/09/2023 10:3 8 AM INDUSTRIAL X RAY OPERATOR Historical Provider LAB BLOOD NON ADD-ON [facility] [address] [place] [address] * Uric Acid (07/02/2023 7:08 AM INDUSTRIAL X RAY OPERATOR) Pathologist [facility] Uric Acid, S 5.3 2.7 - 6.1 mg/dL 07/02/2023 8:59 AM INDUSTRIAL X RAY OPERATOR DTL Blood (Blood, Venous) 07/02/2023 7:08 AM INDUSTRIAL X RAY OPERATOR 07/02/2023 7:45 AM INDUSTRIAL X RAY OPERATOR Janusz Ardon LAB BLOOD ADD-ON [facility] [address] [place] [address], [place] DTL [facility] [address] [place] [address] * (ABNORMAL) Comprehensive Metabolic Panel (07/02/2023 7:08 AM INDUSTRIAL X RAY OPERATOR) Potassium, S CANCELED mmol/L 07/02/2023 9:12 AM INDUSTRIAL X RAY OPERATOR DTL Comment: Duplicate test request. Result canceled by the ancillary. Sodium, S 139 135 - 145 mmol/L 07/02/2023 8:59 AM INDUSTRIAL X RAY OPERATOR DTL Chloride, S 101 98 - 107 mmol/L 07/02/2023 8:59 AM INDUSTRIAL X RAY OPERATOR DTL Bicarbonate, S 28 22 - 29 mmol/L 07/02/2023 8:59 AM INDUSTRIAL X RAY OPERATOR DTL Anion Gap 10 7 - 15 07/02/2023 8:59 AM INDUSTRIAL X RAY OPERATOR DTL BUN (Blood Urea Nitrogen), S 31(H) 6 - 21 mg/dL 07/02/2023 8:59 AM INDUSTRIAL X RAY OPERATOR DTL Creatinine 1.06(H) 0.59 - 1.04 mg/dL 07/02/2023 8:59 AM INDUSTRIAL X RAY OPERATOR DTL Estimated GFR (eGFR) 62 >=60 mL/min/BS A 07/02/2023 8:59 AM INDUSTRIAL X RAY OPERATOR DTL Comment: Estimated GFR calculated using the 2020 CKD_EPI creatinine equation. Calcium, Total, S 9.1 8.6 - 10.0 mg/dL 07/02/2023 8:59 AM INDUSTRIAL X RAY OPERATOR DTL Glucose, S 100 70 - 140 mg/dL 07/02/2023 8:59 AM INDUSTRIAL X RAY OPERATOR DTL Protein, Total, S 6.2(L) 6.3 - 7.9 g/dL 07/02/2023 8:59 AM INDUSTRIAL X RAY OPERATOR DTL Albumin, S 4.3 3.5 - 5.0 g/dL 07/02/2023 8:59 AM INDUSTRIAL X RAY OPERATOR DTL Aspartate Aminotransferase (AST), S 50(H) 8 - 43 U/L 07/02/2023 8:59 AM INDUSTRIAL X RAY OPERATOR DTL Alkaline Phosphatase, S 234(H) 35 - 104 U/L 07/02/2023 8:59 AM INDUSTRIAL X RAY OPERATOR DTL Alanine Aminotransferase (ALT), S 65(H) 7 - 45 U/L 07/02/2023 8:59 AM INDUSTRIAL X RAY OPERATOR DTL Bilirubin, Total, S 0.5 0.0 - 1.2 mg/dL 07/02/2023 8:59 AM INDUSTRIAL X RAY OPERATOR DTL Blood (Blood, Venous) 07/02/2023 7:08 AM INDUSTRIAL X RAY OPERATOR 07/02/2023 7:45 AM INDUSTRIAL X RAY OPERATOR Janusz Ardon LAB BLOOD ADD-ON [facility] [address] [place] [address], [facility] [address] [place] [address] * Lipase (07/02/2023 7:06 AM INDUSTRIAL X RAY OPERATOR) Lipase, S 29 13 - 60 U/L 07/02/2023 12:04 PM INDUSTRIAL X RAY OPERATOR DTL Blood 07/02/2023 7:06 AM INDUSTRIAL X RAY OPERATOR 07/02/2023 11:42 AM INDUSTRIAL X RAY OPERATOR Janusz Dillon.B.B.S. LAB BLOOD ADD-ON [facility] [address] [place] [address], [facility] 200 [place] [address] * Amylase, Total (07/02/2023 7:06 AM INDUSTRIAL X RAY OPERATOR) Amylase, Total, S 41 28 - 100 U/L 07/02/2023 12:04 PM INDUSTRIAL X RAY OPERATOR DTL Blood (Blood, Venous) 07/02/2023 7:06 AM INDUSTRIAL X RAY OPERATOR 07/02/2023 11:42 AM INDUSTRIAL X RAY OPERATOR Janusz Govea M.B.B.S. LAB BLOOD ADD-ON [facility] [address] [place] [address], [facility] [address] [place] [address] from Last 3 Months Additional Health Concerns Infection Onset Date Last Indicated Protective Environment 01/22/2023 3 Advance Directives For more information, please contact: [phone] Latest Code Status on File Code Status Date Activated Date Inactivated Comments Full Code 03/13/2022 8:14 PM 03/18/2022 12:42 PM Question Answer Comments Full Code: Discussed Code Status History Code Status Date Activated Date Inactivated Comments Full Code 06/06/2021 1:51 PM 06/11/2021 6:52 PM Question Answer Comments Full Code: Discussed Care Teams Welding Pantograph Operator Relationship Specialty Start Date End Date Elsewhere, Pcp PCP - General 11/04/21
--- OUTSIDE RECORDS SUMMARY | 2023-08-21 10:21 | XMS_ITS | Encounter Summary ---
Author Name Unknown Organization [facility] Address [address] [place] [address] Care Team Providers Care Training Associate Name Role Phone Elsewhere, Pcp Primary Care Provider Unavailabl e Encounter Details Date Type Department Care Team ([facility] st Contact Info) Description 07/31/2023 Episode Changes Department of Cardiovascular Medicine in [place], [place] [address] [place] [phone] Aide Mueller RZahraaNZahraa [address] [place] [phone] Social History Tobacco Use Types Packs/Day Years [...] Sex Assigned at Female 07/24/2021 11:03 AM OUTSIDE PARTS SALES Gender Identity Female 07/24/2021 11:03 AM OUTSIDE PARTS SALES Sexual Orientation Straight 07/24/2021 11 :03 AM OUTSIDE PARTS SALES documented as of this encounter Plan of Treatment Not on file documented as of this encounter Visit Diagnoses Not on filedocumented in this encounter Additional Health Concerns Infection Onset Date Last Indicated Resolved Time Protective Environment 01/22/2023 01/22/2023 documented as of this encounter Care Teams Training Associate Relationship Specialty Start Date End Date Elsewhere, Pcp PCP - General 11/04/21 documented as of this encounter
--- OUTSIDE RECORDS SUMMARY | 2023-08-21 10:21 | XMS_ITS | Encounter Summary ---
Author Name Unknown Organization [facility] Address [address] [place] [address] Care Team Providers Care Kitchen Helper Name Role Phone Elsewhere, Pcp Primary Care Provider Unavailabl e Reason for Visit * Reason Onset Date Comments External Lab Entry 08/18/2023 Encounter Details Date Type Department Care Team (Latest Contact Info) Description 08/18/2023 Clinical Communication Division of Hematology in [place], [place] [address] [place] [phone] Janusz Govea M.B.B.S. [address] [place] [phone] External Lab Entry Social History Tobacco Use [...] Sex Assigned at Female 07/24/2021 11:03 AM CHIEF GROWTH OFFICER Gender Identity Female 07/24/2021 11:03 AM CHIEF GROWTH OFFICER Sexual Orientation Straight 07/24/2021 11 :03 AM CHIEF GROWTH OFFICER documented as of this encounter Miscellaneous Notes * Telephone Encounter - Jennifer Peralta - 08/18/2023 12:22 PM CHIEF GROWTH OFFICER CMP outside labs collected on have been received. The fax has been scanned into the patient record via [employer]. F GROWTH OFFICER * Telephone Encounter - Jennifer Peralta - 08/18/2023 11:43 AM CHIEF GROWTH OFFICER Outside labs collected on 08/18/2023 have been received. The fax has been scanned into the patient record via [employer], and the CBC results are as noted below. Hemoglobin: 7.4 Hematocrit: 25.2 WBC: 63.59 ANC: 8.50 Platelets: 1038.0 Please note: Are there additional labs reported on the outside report? No F GROWTH OFFICER documented in this encounter Plan of Treatment Not on file documented as of this encounter Visit Diagnoses Not on filedocumented in this encounter Additional Health Concerns Infection Onset Date Last Indicated Resolved Time Protective Environment 01/22/2023 01/22/2023 documented as of this encounter Care Teams Kitchen Helper Relationship Specialty Start Date End Date Elsewhere, Pcp PCP - General 11/04/21 documented as of this encounter
--- OUTSIDE RECORDS SUMMARY | 2023-08-21 10:22 | XMS_ITS | Encounter Summary ---
Author Name Unknown Organization [facility] Address [address] [place] [address] Care Team Providers Care Spring Coiling Machine Setter Name Role Phone Elsewhere, Pcp Primary Care Provider Unavailabl e Reason for Referral * Outpatient (Routine) - Closed Specialty Diagnoses / Procedures Referred By Contac t Referred To Contact Diagnoses Hypertension Pulmonary (HCC) Myelofibrosis (HCC) Dyspnea On Exertion Procedures Echo Transthoracic (TTE) Matthew Mayes M.D. 200 [place] [address] [facility] Referral ID Status Reason Start Date Expiration Date Visits Re quested Visits Authorized [id number] Closed 12/10/2022 12/10/2023 1 1 BUILDER Reason for Visit * Outpatient (Routine) - Closed Specialty Diagnoses / Procedures Referred By Contac t Referred To Contact Diagnoses Hypertension Pulmonary (HCC) Myelofibrosis (HCC) Dyspnea On Exertion Procedures Echo Transthoracic (TTE) Matthew Mayes M.D. 200 [place] [address] [facility] Referral ID Status Reason Start Date Expiration Date Visits Re quested Visits Authorized [id number] Closed 12/10/2022 12/10/2023 1 1 Encounter Details Date Type Department Care Team (Latest Contact Info) Description 07/30/2023 10:09 AM HULL BUILDER - 07/30/2023 12:26 PM HULL BUILDER Hospital Encounter Department of Cardiovascular Diseases in [place], [place] 200 [place] [address] Matthew Mayes M.D. 200 [place] [address] Hypertension Pulmonary (HCC); Myelofibrosis (HCC); Dyspnea On Exertion Discharge Disposition: Home or Self Care Social History Tobacco Use Types Packs/Day Years Used Date Smoking Tobacco: Former Cigarettes uit: 2012 Smokeless Tobacco: Never Comments:still smokes mariju shady [...] Sex Assigned at Female 07/24/2021 11:03 AM HULL BUILDER Gender Identity Female 07/24/2021 11:03 AM HULL BUILDER Sexual Orientation Straight 07/24/2021 11 :03 AM HULL BUILDER documented as of this encounter Medications at Time of Discharge Medication Sig Dispensed Refills Start Date End Date acetaminophen (TYLENOL) 500 mg tablet Take 2 tablets (1,000 mg total) by mouth every 6 (six) hours as needed for pain (Do not exceed 4000mg/day.). 0 03/18/2022 allopurinoL (ZYLOPRIM) 300 mg tablet take 1 tablet by mouth daily 90 tablet 3 05/23/2023 buPROPion XL (WELLBUTRIN XL) 150 mg 24 hr tablet Take 150 mg by mouth daily. 0 11/22/2022 calcium acetate,phosphat bind, (PHOSLO) 667 mg (169 mg calcium) capsule TAKE 2 CAPSULES BY MOUTH THREE TIMES DAILY 540 capsule 0 08/14/2021 cyanocobalamin (VITAMIN B12) 100 mcg tablet Take 100 mcg by mouth once a week. Mondays 0 febuxostat (ULORIC) 40 mg tablet Take 1 tablet (40 mg total) by mouth daily. 30 tablet 3 01/22/2023 hydroxyurea (HYDREA) 500 mg capsule TAKE 1 CAPSULE BY MOUTH TWICE DAILY TAKE AT THE SAME TIME EACH DAY 180 capsule 1 05/23/2023 LORazepam (ATIVAN) 0.5 mg tablet Take 1-2 mg by mouth at bedtime as needed for anxiety or sleep. 0 momelotinib (OJJAARA) 100 mg tablet Take 1 tablet (100 mg total) by mouth daily. Swallow tablets whole; do not cut, crush or chew. 30 tablet 3 07/02/2023 morphine (MS CONTIN) 15 mg ER tablet TAKE 1 TABLET BY MOUTH EVERY 12 HOURS FOR PAIN 0 11/15/2022 morphine (MS CONTIN) 30 mg ER tablet Take 30 mg by mouth 2 (two) times a day. 0 09/15/2022 Morphine 15 mg, Bupivacaine 10 mg/mL INTRATHECAL 15 mg 2 (two) times a day. 0 04/05/2022 oxyCODONE (ROXICODONE) 5 mg immediate release tabletIndications:Acute Pain Exception Take 1 tablet (5 mg total) by mouth 2 (two) times a day Indication: Acute Pain Exception. 8 tablet 0 03/25/2022 RX WELCOME [id number] ONLY Welcome packet 1 each 0 07/18/2023 sennosides (SENOKOT) 8.6 mg tablet Take 1 tablet by mouth 2 (two) times a day as needed. 0 03/07/2016 sodium-potassium bicarbonate (VASYL-SELTZER GOLD) 344-1,050-1,000 mg tablet, effervescent Take 1 tablet by mouth daily as needed (upset stomach). 0 torsemide (DEMADEX) 20 mg tablet Take 1 tablet (20 mg total) by mouth daily. 30 tablet 1 06/12/2021 UNABLE TO FIND Med Name: Cannabis- patient's reports this is newly prescribed for her and as of 03/11/22, has not yet started. Reports patient will have gummies as well as a tablet, have not picked these up yet. Strength of these is not known because they are new for her. 0 documented as of this encounter Plan of Treatment Not on file documented as of this encounter Procedures Procedure Name Priority Date/Time Associated Diagnosis Comments (TTE) 2D ECHO DOPPLER COLOR Routine 07/30/2023 11:41 AM HULL BUILDER Hypertension Pulmonary (HCC) Myelofibrosis (HCC) Dyspnea On Exertion documented in this encounter Results * (TTE) 2D ECHO DOPPLER COLOR (07/30/2023 11:41 AM HULL BUILDER) Ejection Fraction 59 MC CV EIMS Mid-Ascending [...] Laterality Modality Echocardiography 07/30/2023 10:3 0 AM HULL BUILDER Impressions 07/30/2023 12:23 PM HULL BUILDER Anemia, thyrotoxicosis, or another high output state [...] the Order-Level Documents. Narrative 07/30/2023 12:23 PM HULL BUILDER For the complete report, see the Order-Level [...] regionalwall motion abnormalities, calculated 3-D volumetric ejection [id number] 2. Severely enlarged right ventricular chamber size, [...] Documents. Matthew Mayes M.D. CV ECHO PROCEDURES documented in this encounter Visit Diagnoses Diagnosis Hypertension Pulmonary (HCC) Myelofibrosis (HCC) Dyspnea On Exertion documented in this encounter Additional Health Concerns Infection Onset Date Last Indicated Resolved Time Protective Environment 01/22/2023 01/22/2023 documented as of this encounter Care Teams Spring Coiling Machine Setter Relationship Specialty Start Date End Date Elsewhere, Pcp PCP - General 11/04/21 documented as of this encounter
--- OUTSIDE RECORDS SUMMARY | 2023-08-21 10:22 | XMS_ITS | Encounter Summary ---
Author Name Unknown Organization [facility] Address [address] [place] [address] Care Team Providers Care Ortho Rn Name Role Phone Elsewhere, Pcp Primary Care Provider Unavailabl e Reason for Visit * Reason Onset Date Comments Pre-visit Intake 07/28/2023 Encounter Details Date Type Department Care Team (Latest Contact Info) Description 07/28/2023 12:00 PM HUMAN RESOURCES TECHNICIAN Clinical Communication Virtual Review in [place], [place] [address] [place], [place] [phone] Pre-visit Intake Social History Tobacco Use Types Packs/Day Years [...] Sex Assigned at Female 07/24/2021 11:03 AM HUMAN RESOURCES TECHNICIAN Gender Identity Female 07/24/2021 11:03 AM HUMAN RESOURCES TECHNICIAN Sexual Orientation Straight 07/24/2021 11 :03 AM HUMAN RESOURCES TECHNICIAN documented as of this encounter Plan of Treatment Not on file documented as of this encounter Visit Diagnoses Not on filedocumented in this encounter Additional Health Concerns Infection Onset Date Last Indicated Resolved Time Protective Environment 01/22/2023 01/22/2023 documented as of this encounter Care Teams Ortho Rn Relationship Specialty Start Date End Date Elsewhere, Pcp PCP - General 11/04/21 documented as of this encounter
--- OUTSIDE RECORDS SUMMARY | 2023-08-21 10:22 | XMS_ITS | Encounter Summary ---
Author Name Unknown Organization [facility] Address [address] [place] [address] Care Team Providers Care Barge Loader Name Role Phone Elsewhere, Pcp Primary Care Provider Unavailabl e Reason for Referral * Outpatient (Routine) - Closed Specialty Diagnoses / Procedures Referred By Serena matson Referred To Contact Diagnoses Hypertension Pulmonary (HCC) Myelofibrosis (HCC) Dyspnea On Exertion Procedures Six Minute Walk Matthew Mayes M.D. [address] [place] [phone] [facility] Referral ID Status Reason Start Date Expiration Date Visits Re quested Visits Authorized [id number] Closed 12/10/2022 12/10/2023 1 1 AGING ASSEMBLER Reason for Visit * Outpatient (Routine) - Closed Specialty Diagnoses / Procedures Referred By Serena matson Referred To Contact Diagnoses Hypertension Pulmonary (HCC) Myelofibrosis (HCC) Dyspnea On Exertion Procedures Six Minute Walk Matthew Mayes M.D. [address] [place] [phone] [facility] Referral ID Status Reason Start Date Expiration Date Visits Re quested Visits Authorized [id number] Closed 12/10/2022 12/10/2023 1 1 Encounter Details Date Type Department Care Team (Latest Contact Info) Description 07/30/2023 12:27 PM PACKAGING ASSEMBLER - 07/30/2023 11:59 PM PACKAGING ASSEMBLER Hospital Encounter Department of Cardiac Rehabilitation in [place], [place] [address] [place] [phone] Matthew Mayes M.D. [address] [place] [address] Hypertension Pulmonary (HCC); Myelofibrosis (HCC); Dyspnea On Exertion Discharge Disposition: Home or Self Care Social History Tobacco Use Types Packs/Day Years Used Date Smoking Tobacco: Former Cigarettes 1 Q uit: 2012 Smokeless Tobacco: Never Comments:still smokes mariju sahdy Alcohol Use Standard Drinks/Week Comments Yes 0 [...] Sex Assigned at Female 07/24/2021 11:03 AM PACKAGING ASSEMBLER Gender Identity Female 07/24/2021 11:03 AM PACKAGING ASSEMBLER Sexual Orientation Straight 07/24/2021 11 :03 AM PACKAGING ASSEMBLER documented as of this encounter Medications [...] 04/05/2022 oxyCODONE (ROXICODONE) 5 mg immediate release tabletIndications:Acut e Pain Exception Take 1 tablet (5 mg total) by mouth 2 (two) times a day Indication: Acute Pain Exception. 8 tablet 0 03/25/2022 RX WELCOME [id number] ONLY Welcome packet 1 each 0 07/18/2023 sennosides (SENOKOT) 8.6 mg tablet Take 1 tablet by mouth 2 (two) times a day as needed. 0 03/07/2016 sildenafil (REVATIO) 20 mg tablet Take 1 tablet (20 mg total) by mouth 3 (three) times a day. 90 tablet 3 07/30/2023 sildenafil (REVATIO) 20 mg tablet Take 1 tablet (20 mg total) by mouth 3 (three) times a day. 90 tablet 11 07/30/2023 07/29/2024 sodium-potassium bicarbonate (VASYL-SELTZER GOLD) 344-1,050-1,000 mg tablet, effervescent Take 1 tablet by mouth daily as needed (upset stomach). 0 spironolactone (ALDACTONE) 25 mg tablet Take 1 tablet (25 mg total) by mouth daily. 90 tablet 3 07/30/2023 torsemide (DEMADEX) 20 mg tablet Take 1 [...] her. 0 documented as of this encounter Procedure Notes * Flip Christensen CRAT - 07/30/2023 12:30 PM CSTAssociated Order(s): Six Minute Walk Pre-Procedure Diagnose(s): Hypertension Pulmonary (HCC); Myelofibrosis (HCC); Dyspnea On Exertion Post-Procedure Diagnose(s): Hypertension Pulmonary (HCC); Myelofibrosis (HCC); Dyspnea On Exertion Six Minute Walk Performed by: Flip Christensen CRAT Authorized by: Matthew Mayes M.D. Were medications taken in the last 24 hours?: yes PRE WALK Assistive Device: None 6 Min Walk Distance Type: Track Height (cm): 172 Weight (kg): 106 BMI: 35.8 Resting Heart Rate: 103 Heart Rate Source: Pulse Oximeter Resting BP: 130/72 BP Cuff Arm: Left BP Cuff Size: LargeSupplemental Oxygen used: Supplemental Oxygen Not Used Resting SpO2: 96 SpO2 Site: Finger Angina Scale: 0 - No Angina Ambika Dyspnea: 3 - Moderate Ambika Fatigue: 3 - Moderate POST WALK Heart Rate: 118 Heart Rate Source: Pulse Oximeter SpO2: 95 BP: 186/76 BP Cuff Side: Left Angina Scale: 0 - No Angina Ambika Dyspnea: 7 - Very Severe Ambika Fatigue: 4 - Somewhat Severe Time of Test: 12:30 PACKAGING ASSEMBLER Total Distance Walked (Feet): 1360 Total Distance Walked (Meters): 414.53 Total # of Times Stopped: 0 Time Stopped (Seconds): 0 Time Walked (Seconds): 360 CALCULATIONS Estimated MPH: 2.6 Estimated METs: 2.99 % of Predicted Distance: 87.65 Interpretation: Six minute walk was reviewed. I agree with the reported results. AGING ASSEMBLER documented in this encounter Plan of Treatment Not on file documented as of this encounter Procedures Procedure Name Priority Date/Time Associated Diagnosis Comments 6 MINUTE WALK Routine 07/30/2023 12:30 PM PACKAGING ASSEMBLER Hypertension Pulmonary (HCC) Myelofibrosis (HCC) Dyspnea On Exertion documented in this encounter Results * 6 MINUTE WALK (07/30/2023 12:30 PM PACKAGING ASSEMBLER) Narrative Linn Rey P.A.-C., M.S. - 07/30/2023 12:30 PM PACKAGING ASSEMBLER Linn Rey P.A.-C., M.S. ? 07/31/2023 11:51 [...] - Somewhat Severe Time of Test: ??12:30 PACKAGING ASSEMBLER Total Distance Walked (Feet): ??1360 Total Distance Walked (Meters): ??414.53 Total # of Times Stopped: ??0 Time Stopped (Seconds): ??0 Time Walked (Seconds): ??360 CALCULATIONS Estimated MPH: ??2.6 Estimated METs: ??2.99 % of Predicted Distance: ??87.65 Matthew Mayes M.D. CV STRESS PROCEDURE S documented in this encounter Visit Diagnoses Diagnosis Hypertension Pulmonary (HCC) Myelofibrosis (HCC) Dyspnea On Exertion documented in this encounter Additional Health Concerns Infection Onset Date Last Indicated Resolved Time Protective Environment 01/22/2023 01/22/2023 documented as of this encounter Care Teams Barge Loader Relationship Specialty Start Date End Date Elsewhere, Pcp PCP - General 11/04/21 documented as of this encounter
--- OUTSIDE RECORDS SUMMARY | 2023-08-21 10:22 | XMS_ITS | Encounter Summary ---
Author Name Unknown Organization [facility] Address [address] [place] [address] Care Team Providers Care Perioperative Tech Name Role Phone Elsewhere, Pcp Primary Care Provider Unavailabl e Reason for Visit * Reason Onset Date Comments External Lab Entry 07/16/2023 Encounter Details Date Type Department Care Team (Latest Contact Info) Description 07/16/2023 Clinical Communication Division of Hematology in [place], [place] [address] [place] [phone] Janusz Govea M.B.BZahraaS. [address] [place] [phone] External Lab Entry Social History Tobacco Use [...] Sex Assigned at Female 07/24/2021 11:03 AM STARTING GATE DRIVER Gender Identity Female 07/24/2021 11:03 AM STARTING GATE DRIVER Sexual Orientation Straight 07/24/2021 11 :03 AM STARTING GATE DRIVER documented as of this encounter Miscellaneous Notes * Telephone Encounter - Jocelyne Lang - 07/16/2023 11:36 AM CST Outside labs collected on 07/16/2022 have been received. The fax has been scanned into the patient record via [employer], and the CBC results are as noted below. Hemoglobin: 8.1 Hematocrit: 27.0 WBC: 47.38 ANC: 10.6 Platelets: 761 Please note: Are there additional labs reported on the outside report? No TING GATE DRIVER documented in this encounter Plan of Treatment Not on file documented as of this encounter Visit Diagnoses Not on filedocumented in this encounter Additional Health Concerns Infection Onset Date Last Indicated Resolved Time Protective Environment 01/22/2023 01/22/2023 documented as of this encounter Care Teams Perioperative Tech Relationship Specialty Start Date End Date Elsewhere, Pcp PCP - General 11/04/21 documented as of this encounter
--- OUTSIDE RECORDS SUMMARY | 2023-08-21 10:22 | XMS_ITS | Encounter Summary ---
Author Name Unknown Organization [facility] Address [address] [place] [address] Care Team Providers Care Rn Medical Inpatient Services Name Role Phone Elsewhere, Pcp Primary Care Provider Unavailabl e Encounter Details Date Type Department Care Team (Late st Contact Info) Description 07/18/2023 Specialty Pharmacy [facility] [address] [place] [phone] Matthew Travis Jr., R.Ph. [address] [place] [phone] Social History Tobacco Use Types Packs/Day Years [...] Sex Assigned at Female 07/24/2021 11:03 AM LAMINATION MACHINE OPERATOR Gender Identity Female 07/24/2021 11:03 AM LAMINATION MACHINE OPERATOR Sexual Orientation Straight 07/24/2021 11 :03 AM LAMINATION MACHINE OPERATOR documented as of this encounter Miscellaneous Notes * Telephone Encounter - Matthew Travis Jr., R.Ph. - 07/18/2023 9:24 AM LAMINATION MACHINE OPERATOR Note created for purposes of potential enrollment with [facility] and medication interaction check via [employer] interaction amusement or recreation card checker. No telephone contact with patient at this point. NATION MACHINE OPERATOR documented in this encounter Plan of Treatment Not on file documented as of this encounter Visit Diagnoses Not on filedocumented in this encounter Additional Health Concerns Infection Onset Date Last Indicated Resolved Time Protective Environment 01/22/2023 01/22/2023 documented as of this encounter Care Teams Rn Medical Inpatient Services Relationship Specialty Start Date End Date Elsewhere, Pcp PCP - General 11/04/21 documented as of this encounter
--- OUTSIDE RECORDS SUMMARY | 2023-08-21 10:22 | XMS_ITS | Encounter Summary ---
Author Name Unknown Organization [facility] Address [address] [place] [address] Care Team Providers Care Kiln Door Repairer Name Role Phone Elsewhere, Pcp Primary Care Provider Unavailabl e Reason for Visit * Reason Onset Date Comments Rx Denial 07/17/2023 OJJAARA Encounter Details Date Type Department Care Team (Latest Contact Info) Description 07/17/2023 Clinical Communication Division of Hematology in [place], [place] [address] [place] [phone] Janusz Govea M.B.B.S. [address] [place] [phone] Rx Denial (LATA) Social History Tobacco Use Types Packs/Day Years [...] Sex Assigned at Female 07/24/2021 11:03 AM TOE LINING CLOSER Gender Identity Female 07/24/2021 11:03 AM TOE LINING CLOSER Sexual Orientation Straight 07/24/2021 11 :03 AM TOE LINING CLOSER documented as of this encounter Plan of Treatment Not on file documented as of this encounter Visit Diagnoses Not on filedocumented in this encounter Additional Health Concerns Infection Onset Date Last Indicated Resolved Time Protective Environment 01/22/2023 01/22/2023 documented as of this encounter Care Teams Kiln Door Repairer Relationship Specialty Start Date End Date Elsewhere, Pcp PCP - General 11/04/21 documented as of this encounter
--- OUTSIDE RECORDS SUMMARY | 2023-08-21 10:22 | XMS_ITS | Encounter Summary ---
Author Name Unknown Organization [facility] Address [address] [place] [address] Care Team Providers Care Clinical Social Worker Name Role Phone Elsewhere, Pcp Primary Care Provider Unavailabl e Reason for Visit * Reason Onset Date Comments External Lab Entry 07/09/2023 Encounter Details Date Type Department Care Team (Latest Contact Info) Description 07/09/2023 Clinical Communication Division of Hematology in [place], [place] [address] [place] [phone] Janusz Govea M.B.B.S. [address] [place] [phone] External Lab Entry Social History Tobacco Use [...] Sex Assigned at Female 07/24/2021 11:03 AM CRITICAL POWER TECHNICIAN Gender Identity Female 07/24/2021 11:03 AM CRITICAL POWER TECHNICIAN Sexual Orientation Straight 07/24/2021 11 :03 AM CRITICAL POWER TECHNICIAN documented as of this encounter Miscellaneous Notes * Telephone Encounter - Jocelyne Lang - 07/09/2023 1:12 PM CST Outside labs collected on 07/09/2023 have been received. The fax has been scanned into the patient record via [employer], and the CBC results are as noted below. Hemoglobin: 7.2 Hematocrit: 24.6 WBC: 51.51 ANC: 15.2 Platelets: 964 Please note: Are there additional labs reported on the outside report? No ICAL POWER TECHNICIAN documented in this encounter Plan of Treatment Not on file documented as of this encounter Procedures Procedure Name Priority Date/Time Associated Diagnosis Comments HEMATOLOGY/ONCOLOGY - BLOOD, EXTERNAL LAB RESULTS Routine 07/09/2023 10:38 AM CRITICAL POWER TECHNICIAN HEMATOLOGY/ONCOLOGY - BLOOD, EXTERNAL LAB RESULTS Routine 06/24/2023 9:22 AM CRITICAL POWER TECHNICIAN documented in this encounter Results * (ABNORMAL) Hematology/Oncology - Blood, External Lab Results (07/09/2023 10:38 AM CRITICAL POWER TECHNICIAN) EXT Hemoglobin 7.2(A) 12.0 - 16.0 g/dL [facility] EXT Hematocrit 24.6(A) 33.0 - 51.0 % [facility] EXT Erythrocytes 2.52(A) 4.00 - 5.20 M/uL [facility] EXT MCV 98 80 - 100 fL [facility] EXT Leukocytes 51.51(A) 4.50 - 11.0 K/uL [facility] EXT Absolute Neutrophil Count 15.2(A) 1.7 - 7.0 K/uL [facility] EXT Platelet Count 964(A) 140 - 440 K/uL [facility] Blood 07/09/2023 10:3 8 AM CRITICAL POWER TECHNICIAN Historical Provider LAB BLOOD NON ADD-ON [facility] [address] [place] [address], [facility] [phone] * (ABNORMAL) Hematology/Oncology - Blood, External Lab Results (06/24/2023 9:22 AM CRITICAL POWER TECHNICIAN) EXT Hemoglobin 7.4(A) 12.0 - 16.0 g/dL [facility] EXT Hematocrit 25.5(A) 33.0 - 51.0 % [facility] EXT Erythrocytes 2.62(A) 4.00 - 5.20 M/uL [facility] EXT MCV 97 80 - 100 fL [facility] EXT Leukocytes 61.62(A) 4.50 - 11.0 K/uL [facility] EXT Absolute Neutrophil Count 15.1(A) 1.7 - 7.0 K/uL [facility] EXT Platelet Count 982(A) 140 - 440 K/uL [facility] Blood 06/24/2023 9:22 AM CRITICAL POWER TECHNICIAN Historical Provider LAB BLOOD NON ADD-ON [facility] [address] [place] [address] documented in this encounter Visit Diagnoses Not on filedocumented in this encounter Additional Health Concerns Infection Onset Date Last Indicated Resolved Time Protective Environment 01/22/2023 01/22/2023 documented as of this encounter Care Teams Clinical Social Worker Relationship Specialty Start Date End Date Elsewhere, Pcp PCP - General 11/04/21 documented as of this encounter
--- OUTSIDE RECORDS SUMMARY | 2023-08-21 10:22 | XMS_ITS | Encounter Summary ---
Author Name Unknown Organization [facility] Address [address] [place] [address] Care Team Providers Care Alarm Signal Operator Name Role Phone Elsewhere, Pcp Primary Care Provider Unavailabl e Encounter Details Date Type Department Care Team (Latest Contact Info) Description 07/30/2023 9:35 AM VIDEO GAME REPAIR TECHNICIAN - 07/30/2023 10:08 AM VIDEO GAME REPAIR TECHNICIAN Hospital Encounter Department of Laboratory Medicine and Pathology, [facility] in [place], [place] [address] [place] [phone] Matthew Mayes M.D. [address] [place] [phone] Hypertension Pulmonary (HCC); Myelofibrosis (HCC); Dyspnea On [...] Sex Assigned at Female 07/24/2021 11:03 AM VIDEO GAME REPAIR TECHNICIAN Gender Identity Female 07/24/2021 11:03 AM VIDEO GAME REPAIR TECHNICIAN Sexual Orientation Straight 07/24/2021 11 :03 AM VIDEO GAME REPAIR TECHNICIAN documented as of this encounter Medications at [...] Exception. 8 tablet 0 03/25/2022 RX [facility] [id number] ONLY Welcome packet 1 each 0 07/18/2023 [...] Procedure Name Priority Date/Time Associated Diagnosis Comments SPSMA RESULT Routine 07/30/2023 10:00 AM VIDEO GAME REPAIR TECHNICIAN THYROID FUNCTION CASCADE, S Routine 07/30/2023 10:00 AM VIDEO GAME REPAIR TECHNICIAN Hypertension Pulmonary (HCC) Myelofibrosis (HCC) Dyspnea On Exertion POTASSIUM, PLASMA Routine 07/30/2023 10: 00 AM VIDEO GAME REPAIR TECHNICIAN Hypertension Pulmonary (HCC) Myelofibrosis (HCC) Dyspnea On Exertion NT-PRO B-TYPE NATRIURETIC PEPTIDE (BNP), S Routine 07/30/2023 10:00 AM VIDEO GAME REPAIR TECHNICIAN Hypertension Pulmonary (HCC) Myelofibrosis (HCC) Dyspnea On Exertion CBC WITH DIFFERENTIAL, B Routine 024 10:00 AM VIDEO GAME REPAIR TECHNICIAN Hypertension Pulmonary (HCC) Myelofibrosis (HCC) Dyspnea On Exertion BUN (BLOOD UREA NITROGEN), S/P Routine 07/30/2023 10:00 AM VIDEO GAME REPAIR TECHNICIAN Hypertension Pulmonary (HCC) Myelofibrosis (HCC) Dyspnea On Exertion ASPARTATE AMINOTRANSFERASE (AST), S/P Routine 07/30/2023 10:00 AM VIDEO GAME REPAIR TECHNICIAN Hypertension Pulmonary (HCC) Myelofibrosis (HCC) Dyspnea On Exertion SODIUM, S/P Routine 07/30/2023 10:00 AM VIDEO GAME REPAIR TECHNICIAN Hypertension Pulmonary (HCC) Myelofibrosis (HCC) Dyspnea On Exertion ALKALINE PHOSPHATASE, S/P Routine 07/30/2023 10:00 AM VIDEO GAME REPAIR TECHNICIAN Hypertension Pulmonary (HCC) Myelofibrosis (HCC) Dyspnea On Exertion CREATININE WITH EGFR, S/P Routine 07/30/2023 10:00 AM VIDEO GAME REPAIR TECHNICIAN Hypertension Pulmonary (HCC) Myelofibrosis (HCC) Dyspnea On Exertion BILIRUBIN, TOT, S/P Routine 07/30/2023 1 0:00 AM VIDEO GAME REPAIR TECHNICIAN Hypertension Pulmonary (HCC) Myelofibrosis (HCC) Dyspnea On Exertion documented in this encounter Results * (ABNORMAL) SPSMA Result (07/30/2023 10:00 AM VIDEO GAME REPAIR TECHNICIAN) Neutrophilic Segs and Bands 66 50 - 75 % 07/30/2023 11:47 AM VIDEO GAME REPAIR TECHNICIAN [facility] Lymphocytes 14(L) 18 - 42 % 07/30/2023 11:47 AM VIDEO GAME REPAIR TECHNICIAN [facility] Monocytes 7 2 - 11 % 07/30/2023 11:47 AM VIDEO GAME REPAIR TECHNICIAN [facility] Basophils 1 0 - 2 % 07/30/2023 11:47 AM VIDEO GAME REPAIR TECHNICIAN [facility] Metamyelocytes 2(H) <1 % 07/30/2023 11:47 AM VIDEO GAME REPAIR TECHNICIAN [facility] Myelocytes 10(H) <0.5 % 07/30/2023 11:47 AM VIDEO GAME REPAIR TECHNICIAN [facility] Nucleated RBC 125 /100 WBC 07/30/2023 11:47 AM VIDEO GAME REPAIR TECHNICIAN [facility] Manual Absolute Neutrophil Count 13.46(H) 1.56 - 6.45 x10(9)/L 07/30/2023 11:47 AM VIDEO GAME REPAIR TECHNICIAN [facility] Comment: ----ADDITIONAL INFORMATION---- The manual absolute neutrophil count is derived from a manual differential count and therefore is not exactly comparable to the automated absolute neutrophil count. Blood 07/30/2023 10:0 0 AM VIDEO GAME REPAIR TECHNICIAN 07/30/2023 10:22 AM VIDEO GAME REPAIR TECHNICIAN Mathtew Mayes M.D. LAB BLOOD ADD-ON [facility] 200 [place] [address], [facility] 200 [place] [address] * Potassium, Plasma (07/30/2023 10:00 AM VIDEO GAME REPAIR TECHNICIAN) Pathologist [facility] [place] Potassium, P 4.3 3.6 - 5.2 mmol/L 07/30/2023 10:51 AM VIDEO GAME REPAIR TECHNICIAN DTL Blood (Blood, Venous) 07/30/2023 10:00 AM VIDEO GAME REPAIR TECHNICIAN 07/30/2023 10:34 AM VIDEO GAME REPAIR TECHNICIAN Matthew Mayes M.D. LAB BLOOD ADD-ON Performing Organization Address City/Va Hospital/ZIP Co de Phone Number [facility] 200 [place], [place] [phone] [place] [phone] * (ABNORMAL) NT-Pro B-Type Natriuretic Peptide (BNP) (07/30/2023 10:00 AM VIDEO GAME REPAIR TECHNICIAN) [facility] NT-Pro BNP 3475(H) <=226 pg/mL 07/30/2023 11:09 AM VIDEO GAME REPAIR TECHNICIAN DTL Comment: NT-proBNP values less than 300 [...] failure. Blood (Blood, Venous) 07/30/2023 10:00 AM VIDEO GAME REPAIR TECHNICIAN 07/30/2023 10:34 AM VIDEO GAME REPAIR TECHNICIAN Matthew Mayes M.D. LAB BLOOD ADD-ON Performing Organization Address City/Va Hospital/ZIP Co de Phone Number [facility] 200 [place] [address], [facility] 200 [place] [address] * Thyroid Function Ridge (07/30/2023 10:00 AM VIDEO GAME REPAIR TECHNICIAN) TSH, Sensitive 2.1 0.3 - 4.2 mIU/L 07/30/2023 11:09 AM VIDEO GAME REPAIR TECHNICIAN DT Blood (Blood, Venous) 07/30/2023 10:00 AM VIDEO GAME REPAIR TECHNICIAN 07/30/2023 10:34 AM VIDEO GAME REPAIR TECHNICIAN Matthew Mayes M.D. LAB BLOOD ADD-ON [facility] [address] [place], [place] [phone] [place] [address] 200 [place] [address] * (ABNORMAL) BUN (Blood Urea Nitrogen) (07/30/2023 10:00 AM VIDEO GAME REPAIR TECHNICIAN) Pathologist [facility] [place] BUN (Blood Urea Nitrogen), S 24(H) 6 - 21 mg/dL 07/30/2023 11:09 AM VIDEO GAME REPAIR TECHNICIAN DT Blood (Blood, Venous) 07/30/2023 10:00 AM VIDEO GAME REPAIR TECHNICIAN 07/30/2023 10:34 AM VIDEO GAME REPAIR TECHNICIAN Matthew Mayes M.D. LAB BLOOD ADD-ON Performing Organization Address City/Va Hospital/ZIP Co de Phone Number [facility] [address] [place], [place] [phone] [place] [address] 200 [place] [address] * Bilirubin, Total (07/30/2023 10:00 AM VIDEO GAME REPAIR TECHNICIAN) Pathologist [facility] [place] Bilirubin, Total, S 0.4 0.0 - 1.2 mg/dL 07/30/2023 11:09 AM VIDEO GAME REPAIR TECHNICIAN DT Blood (Blood, Venous) 07/30/2023 10:00 AM VIDEO GAME REPAIR TECHNICIAN 07/30/2023 10:34 AM VIDEO GAME REPAIR TECHNICIAN Matthew Mayes M.D. LAB BLOOD ADD-ON [facility] [address] [place], [place] [phone] [place] [address] 200 [place] [address] * (ABNORMAL) Alkaline Phosphatase (07/30/2023 10:00 AM VIDEO GAME REPAIR TECHNICIAN) Alkaline Phosphatase, S 209(H) 35 - 104 U/L 07/30/2023 11:09 AM VIDEO GAME REPAIR TECHNICIAN DTL Blood (Blood, Venous) 07/30/2023 10:00 AM VIDEO GAME REPAIR TECHNICIAN 07/30/2023 10:34 AM VIDEO GAME REPAIR TECHNICIAN Matthew Mayes M.D. LAB BLOOD ADD-ON Performing Organization Address City/Va Hospital/ZIP Co de Phone Number [facility] 200 [place], [place] [phone] [place] [address] 200 [place] [address] * (ABNORMAL) AST (Aspartate Aminotransferase) (07/30/2023 10:00 AM VIDEO GAME REPAIR TECHNICIAN) Aspartate Aminotransferase (AST), S 45(H) 8 - 43 U/L 07/30/2023 11:09 AM VIDEO GAME REPAIR TECHNICIAN DTL Blood (Blood, Venous) 07/30/2023 10:00 AM VIDEO GAME REPAIR TECHNICIAN 07/30/2023 10:34 AM VIDEO GAME REPAIR TECHNICIAN Matthew Mayes M.D. LAB BLOOD ADD-ON [facility] [address] [place], [place] [phone] [place] [address] 200 [place] [address] * (ABNORMAL) Creatinine with Estimated GFR (07/30/2023 10:00 AM VIDEO GAME REPAIR TECHNICIAN) Creatinine 1.08(H) 0.59 - 1.04 mg/dL 07/30/2023 11:09 AM VIDEO GAME REPAIR TECHNICIAN DTL Estimated GFR (eGFR) 61 >=60 mL/min/BSA 07/30/2023 11:09 AM VIDEO GAME REPAIR TECHNICIAN DTL Comment: Estimated GFR calculated using the 2020 CKD_EPI creatinine equation. Blood (Blood, Venous) 07/30/2023 10:00 AM VIDEO GAME REPAIR TECHNICIAN 07/30/2023 10:34 AM VIDEO GAME REPAIR TECHNICIAN Matthew Mayes M.D. LAB BLOOD ADD-ON [facility] 200 [place] [address] * Sodium (07/30/2023 10:00 AM VIDEO GAME REPAIR TECHNICIAN) Pathologist [facility] [place] Sodium, S 142 135 - 145 mmol/L 07/30/2023 11:09 AM VIDEO GAME REPAIR TECHNICIAN DTL Blood (Blood, Venous) 07/30/2023 10:00 AM VIDEO GAME REPAIR TECHNICIAN 07/30/2023 10:34 AM VIDEO GAME REPAIR TECHNICIAN Matthew Mayes M.D. LAB BLOOD ADD-ON Performing Organization Address [facility]/Va Hospital/[facility] Co de Phone Number [facility] 200 [place] [address] * (ABNORMAL) CBC with Differential, Blood (07/30/2023 10:00 AM VIDEO GAME REPAIR TECHNICIAN) [facility] Hemoglobin 7.7(L) 11.6 - 15.0 g/dL 07/30/2023 10:32 AM VIDEO GAME REPAIR TECHNICIAN DTL Hematocrit 26.1(L) 35.5 - 44.9 % 07/30/2023 10:32 AM VIDEO GAME REPAIR TECHNICIAN DTL Erythrocytes 2.72(L) 3.92 - 5.13 x10(12)/L 07/30/2023 10:32 AM VIDEO GAME REPAIR TECHNICIAN DTL MCV 96.0 78.2 - 97.9 fL 07/30/2023 10:32 AM VIDEO GAME REPAIR TECHNICIAN DTL RBC Distrib Width 25.2(H) 12.2 - 16.1 % 07/30/2023 10:32 AM VIDEO GAME REPAIR TECHNICIAN DTL Platelet Count 682(H) 157 - 371 x10(9)/L 07/30/2023 10:32 AM VIDEO GAME REPAIR TECHNICIAN DTL Leukocytes 20.4(H) 3.4 - 9.6 x10(9)/L 07/30/2023 11:46 AM VIDEO GAME REPAIR TECHNICIAN DTL Comment:Corrected for normob lasts. Neutrophils See Comment 1.56 - 6.45 x10(9)/L 07/30/2023 11:46 AM VIDEO GAME REPAIR TECHNICIAN [facility] Comment:Auto-diff results no t valid. See manual differential. Blood (Blood, Venous) 07/30/2023 10:00 AM VIDEO GAME REPAIR TECHNICIAN 07/30/2023 10:22 AM VIDEO GAME REPAIR TECHNICIAN Matthew Mayes M.D. LAB BLOOD ADD-ON [facility] 200 [place] [address], [facility] DTL [facility] [address] [place], [place] [phone] [place] [address] 200 [place] [address] documented in this encounter Visit Diagnoses Diagnosis Hypertension Pulmonary (HCC) Myelofibrosis (HCC) Dyspnea On Exertion documented in this encounter Additional Health Concerns Infection Onset Date Last Indicated Resolved Time Protective Environment 01/22/2023 01/22/2023 documented as of this encounter Care Teams Alarm Signal Operator Relationship Specialty Start Date End Date Elsewhere, Pcp PCP - General 11/04/21 documented as of this encounter
--- OUTSIDE RECORDS SUMMARY | 2023-08-21 10:22 | XMS_ITS | Encounter Summary ---
Author Name Unknown Organization [facility] Address [address] [place] [address] Care Team Providers Care Manager Interventional Name Role Phone Elsewhere, Pcp Primary Care Provider Unavailabl e Reason for Visit * Reason Onset Date Comments External Lab Entry 07/23/2023 Encounter Details Date Type Department Care Team (Latest Contact Info) Description 07/23/2023 Clinical Communication Division of Hematology in [place], [place] [address] [place] [phone] Janusz Govea M.B.BZahraaS. [address] [place] [phone] External Lab Entry Social History Tobacco Use [...] Sex Assigned at Female 07/24/2021 11:03 AM ETCHER APPRENTICE PHOTOENGRAVING Gender Identity Female 07/24/2021 11:03 AM ETCHER APPRENTICE PHOTOENGRAVING Sexual Orientation Straight 07/24/2021 11 :03 AM ETCHER APPRENTICE PHOTOENGRAVING documented as of this encounter Miscellaneous Notes * Telephone Encounter - Jocelyne Lang - 07/23/2023 2:36 PM CST Outside labs collected on 07/23/2023 have been received. The fax has been scanned into the patient record via [employer], and the CBC results are as noted below. Hemoglobin: 7.4 Hematocrit: 25.0 WBC: 22.14 ANC: 9.7 Platelets: 880 Please note: Are there additional labs reported on the outside report? No ER APPRENTICE PHOTOENGRAVING documented in this encounter Plan of Treatment Not on file documented as of this encounter Visit Diagnoses Not on filedocumented in this encounter Additional Health Concerns Infection Onset Date Last Indicated Resolved Time Protective Environment 01/22/2023 01/22/2023 documented as of this encounter Care Teams Manager Interventional Relationship Specialty Start Date End Date Elsewhere, Pcp PCP - General 11/04/21 documented as of this encounter
--- OUTSIDE RECORDS SUMMARY | 2023-08-21 10:22 | XMS_ITS | Encounter Summary ---
Author Name Unknown Organization [facility] Address [address] [place] [address] Care Team Providers Care Granite Polisher Name Role Phone Elsewhere, Pcp Primary Care Provider Unavailabl e Encounter Details Date Type Department Care Team (Latest Contact Info) Description 07/25/2023 Specialty Pharmacy [facility] [address] [place] [phone] Cathi Michael, Pharm.D., R.Ph. [address] [place] [phone] Myelofibrosis Primary (HCC) (Primary Dx) Social History Tobacco Use Types Packs/Day Years Used Date Smoking Tobacco: Former Cigarettes 1 26 Q uit: 2012 Smokeless Tobacco: Never Comments:still [...] Sex Assigned at Female 07/24/2021 11:03 AM RN INTERNATIONAL Gender Identity Female 07/24/2021 11:03 AM RN INTERNATIONAL Sexual Orientation Straight 07/24/2021 11 :03 AM RN INTERNATIONAL documented as of this encounter Miscellaneous Notes * Telephone Encounter - Cathi Michael, Pharm.D., R.Ph. - 07/25/2023 8:56 AM CST SUBJECTIVE REASON FOR VISIT Patient counseling and education, via telephone, for new hematology/oncology medication therapy andestablishing medication reassessment timeline. HISTORY OF PRESENT ILLNESS Ms. Jennifer Dobbs is a 53 y.o. female, who is followed by the specialty pharmacy service for Ojjaara (momelotinib) for myelofibrosis. Medications the Patient Reported Taking acetaminophen (TYLENOL) 500 mg tablet (Taking) allopurinoL (ZYLOPRIM) 300 mg tablet (Taking) LORazepam (ATIVAN) 0.5 mg tablet (Taking) momelotinib (OJJAARA) 100 mg tablet (Taking) morphine (MS CONTIN) 15 mg ER tablet (Taking) morphine (MS CONTIN) 30 mg ER tablet (Taking) oxyCODONE (ROXICODONE) 5 mg immediate release tablet (Taking) RX WELCOME OSVFAT-JOYURSEBA-CJ ONLY (Taking) sennosides (SENOKOT) 8.6 mg tablet (Taking) sodium-potassium bicarbonate (VASYL-SELTZER GOLD) 344-1,050-1,000 mg tablet, effervescent (Taking) torsemide (DEMADEX) 20 mg tablet (Taking) UNABLE TO FIND (Taking) OBJECTIVE Lab Results Component Value Date CREATININE 1.06 (H) 07/02/2023 EGFR 62 07/02/2023 ASSESSMENT / PLAN 1. Medication counseling/education I counseled the patient's , Gian via phone. Education related to medication: momelotinib (Ojjaara): Dose/directions: Take 1 tablet (100 mg) by mouth daily. Duration: Duration per tolerance/provider. Proper use: Should be swallowed whole, with or without food. Do not cut, crush, or chew tablets. Ifa dose is missed, the next scheduled dose should be taken the following day. Do not take 2 doses atthe same time to make up for the missed dose. Timely administration/intake: The medication should be taken at approximately the same time each day. A smartphone application or calendar can be used. Storage/handling: Store at room temperature, below 30??C (86??F). Store in original bottle only to protect from moisture. Replace cap securely each time after opening. Do not discard desiccant. Side effects: thrombocytopenia, hemorrhage, bacterial infection, fatigue, dizziness, diarrhea, and nausea. Other potential warnings/safety precautions: Risk of infections, thrombocytopenia, neutropenia, liver toxicity, major adverse cardiac events, thrombosis, and secondary malignancies. Lifestyle and self-management skills/tips to prevent adverse drug reactions: Delay starting therapywith OJJAARA until active infections have resolved. Report signs/symptoms of infection promptly, along with other symptoms consistent with the above-mentioned warnings. Be aware of the potential for first-dose side effects when deciding on a date/time to start therapy. Interactions (drug/food interactions): Drug interactions referenced in #2 below. Food: no restrictions noted in product labeling. Contraindications/ considerations: Based on animal reproduction studies conducted in rats and rabbits, momelotinib may cause embryo- toxicity. Momelotinib should only be used during if the expected benefits to the mother outweigh the potential risks to the fetus. is not recommended during treatment, and for at least 1 week after the last dose. Females of reproductive potential who are not should use highly effective contraception during therapy and for at least 1 week after the last dose Educational resource/decision support tools: www.[employer] and the patient support programs on that site and [facility]. The caregiver was attentive and ready to learn. They verbalized understanding and are in agreement with the plan for taking this new regimen. They were advised to contact the prescriber concerning symptoms or side effects as mentioned above. The importance of adherence to the treatment plan was emph asized in regard to success of therapy. Allergy, past sensitivity, medication and health history considered at securities counselor (renal function if available). To optimize outcomes, patient assessed for the need of other possible supportive therapies and informed of importance of proper monitoring and future reassessment. The patient/caregiver's prior education on this new therapy and disease specific knowledge were assessed with counseling and education tailored to this level of understanding. Conley concerns and questions were addressed. Patient specific considerations/desires/requests noted at securities counselor:None noted at this time. Patient is able to self-administer the medication(s). No social, environmental, functional or cognitive barriers are apparent. Patient is eligible for service through [facility]. Links to access additional resources (financial, community), pharmacy contact information and disposal information included in dispensed 'Welcome Packet' and/or printed materials provided with the prescription. The patient/caregiver was encouraged to ask questions or to call the specialty pharmacy with questions they may have after reviewing printed material. 2. Potential drug-drug interactions No clinically significant drug interactions were identified with Brucejjaara (momelotinib). Specialty medication(s) reconciled and good kay attempt made in obtaining a complete medication list. Patient encouraged to report any new or change of medications (prescribed/over the counter/supplements) to assist in maintaining this list for accuracy. 3. Goals of therapy and other expectations/outcomes: Optimize medication adherence. Evaluate/prevent drug-drug and drug-disease interactions. Minimize, prevent and/or manage side effects. The patient has decided to use the [facility]. Follow-up: 1 month(s) Cathi Michael, PharmMilagros., R.Ph. INTERNATIONAL documented in this encounter Plan of Treatment Not on file documented as of this encounter Visit Diagnoses Diagnosis Myelofibrosis Primary (HCC)- Primary documented in this encounter Additional Health Concerns Infection Onset Date Last Indicated Resolved Time Protective Environment 01/22/2023 01/22/2023 documented as of this encounter Care Teams Granite Polisher Relationship Specialty Start Date End Date Elsewhere, Pcp PCP - General 11/04/21 documented as of this encounter
--- OUTSIDE RECORDS SUMMARY | 2023-08-21 10:22 | XMS_ITS | Encounter Summary ---
Author Name Unknown Organization [facility] Address [address] [place] [address] Care Team Providers Care Hat Body Inspector Name Role Phone Elsewhere, Pcp Primary Care Provider Unavailabl e Encounter Details Date Type Department Care Team (Late st Contact Info) Description 07/15/2023 Orders Only Pharmacy Prior Auth [facility] [phone] Linda Motley [address] [place] [address] Social History Tobacco Use Types Packs/Day Years [...] Sex Assigned at Female 07/24/2021 11:03 AM NOC TECHNICIAN Gender Identity Female 07/24/2021 11:03 AM NOC TECHNICIAN Sexual Orientation Straight 07/24/2021 11 :03 AM NOC TECHNICIAN documented as of this encounter Plan of Treatment Not on file documented as of this encounter Visit Diagnoses Not on filedocumented in this encounter Additional Health Concerns Infection Onset Date Last Indicated Resolved Time Protective Environment 01/22/2023 01/22/2023 documented as of this encounter Care Teams Hat Body Inspector Relationship Specialty Start Date End Date Elsewhere, Pcp PCP - General 11/04/21 documented as of this encounter
--- OUTSIDE RECORDS SUMMARY | 2023-08-21 10:22 | XMS_ITS | Encounter Summary ---
Author Name Unknown Organization [facility] Address [address] [place] [address] Care Team Providers Care Irrigationist Designer Name Role Phone Elsewhere, Pcp Primary Care Provider Unavailabl e Reason for Referral * Outpatient (Routine) - Authorized Specialty Diagnoses / Procedures Referred By Contac t Referred To Contact Cardiovascular Disease Diagnoses Hypertension Pulmonary Primary (HCC) Hypertension Pulmonary (HCC) Myelofibrosis (HCC) Dyspnea On Exertion Medication Therapy Clarifier Not Anticoagulant Matthew Mayes M.D. [address] [place] [phone] [facility] Referral ID Status Reason Start Date Expiration Date V isits Requested Visits Authorized [id number] Authorized 07/31/2023 01/29/2025 1 1 UTER TECH * Outpatient (Routine) - Authorized Specialty Diagnoses / Procedures Referred By Contac t Referred To Contact Diagnoses Hypertension Pulmonary Primary (HCC) Hypertension Pulmonary (HCC) Myelofibrosis (HCC) Dyspnea On Exertion Medication Therapy [facility] Not Anticoagulant Procedures Echo Transthoracic (TTE) Matthew Mayes M.D. [address] [place] [phone] [facility] Referral ID Status Reason Start Date Expiration Date V isits Requested Visits Authorized [id number] Authorized 07/31/2023 07/30/2024 1 1 UTER TECH * Outpatient (Routine) - Authorized Specialty Diagnoses / Procedures Referred By Serena matson Referred To Contact Diagnoses Hypertension Pulmonary Primary (HCC) Hypertension Pulmonary (HCC) Myelofibrosis (HCC) Dyspnea On Exertion Medication Therapy Clarifier Not Anticoagulant Procedures Six Minute Walk Matthew Mayes M.D. [address] [place] [phone] [facility] Referral ID Status Reason Start Date Expiration Date V isits Requested Visits Authorized [id number] Authorized 07/31/2023 07/30/2024 1 1 UTER TECH * Specialty Diagnoses / Procedures Referred By Serena matson Referred To Contact Matthew Mayes M.D. [address] [place] [phone] [facility] Referral ID Status Reason Start Date Expiration Date Visits Re quested Visits Authorized Scheduling Instructions Please add to RN calendar, please check in and check out - thank you! UTER TECH * Medication Prior Authorization - Denied Specialty Diagnoses / Procedures Referred By Serena matson Referred To Contact Matthew Mayes M.D. [address] [place] [phone] Referral ID Status Reason Start Date Expiration Date Visits Re quested Visits Authorized [id number] Denied 1 1 UTER TECH Reason for Visit * Outpatient (Routine) - Closed Specialty Diagnoses / Procedures Referred By Serena matson Referred To Contact Cardiovascular Disease Diagnoses Hypertension Pulmonary (HCC) Myelofibrosis (HCC) Dyspnea On Exertion Matthew Mayes M.D. [address] [place] [phone] [facility] Referral ID Status Reason Start Date Expiration Date Visits Re quested Visits Authorized [id number] Closed 12/10/2022 12/09/2025 1 1 Encounter Details Date Type Department Care Team (Latest Contact Info) Description 07/30/2023 2:00 PM COMPUTER TECH Office Visit Department of Cardiovascular Medicine in [place], [place] [address] [place] [phone] Matthew Mayes M.D. [address] [place] [phone] Hypertension Pulmonary Primary (HCC) (Primary Dx); Hypertension Pulmonary (HCC); Myelofibrosis (HCC); Dyspnea On Exertion; Medication Therapy Clarifier Not Anticoagulant Social History Tobacco Use Types [...] Sex Assigned at Female 07/24/2021 11:03 AM COMPUTER TECH Gender Identity Female 07/24/2021 11:03 AM COMPUTER TECH Sexual Orientation Straight 07/24/2021 11 :03 AM COMPUTER TECH documented as of this encounter Progress Notes * Juan Luis Powell M.D. - 07/30/2023 2:00 PM CST Pulmonary Hypertension Clinic CHIEF COMPLAINT / REASON FOR VISIT PAH HISTORY OF PRESENT ILLNESS Ms. Dobbs is a 53 y.o. year old female who presents to the cardiology clinic today for management of PAH. She is myelofibrosis, prior splenectomy, and transfusion-dependent anemia. 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 She underwent RHC 11/07/2021 which showed RA 4-8,PCWP 4-12, mPA 32, PVR 3.2, CI 3.3; with Breanne 80: mPA 23, PCWP 7, RA 4, CI 2.8, PVR 2.7. She was thus given a prescription for sildenafil 20mg TID, however did not take it and on subsequent follow-up was doing OK so it was elected not to start it. She last saw Dr. Mayes 12/10/2022. 6MWT 402m; RVSP 69 with sev RV size, moderate reduced function, RV strain -23. NT-pro BNP 7. In the interim, she describes a subtle progressive worsening of symptoms. These include being more sedentary due to SOB and fatigue, 10-15 pound weight gain, tighter fitting clothes, and more orthopnea. In particular, she reports awaking often at night with anxiety attacks. She continues to get blood transfusions every 2-3 weeks. No syncope. 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 2/6 holosystolic murmur that increased with inspiration. JVPshows large v wave Lungs: Clear to auscultation bilaterally. Abdomen: slightly distended. nontender Extremities: No clubbing or cyanosis. 1+ lower extremity edema Skin: No stasis dermatitis or ulceration of the lower extremities appreciated. Neuro: Alert and oriented x 3. I have reviewed the patient's current laboratory, imaging, and other diagnostic studies. LABORATORY ASSESSMENT NT- Pro BNP 3475 TTE 1. Severely enlarged left ventricular chamber size [...] ERO (PISA) 0.38 cm2, regurgitant volume (PISA) 49ml. 4. Enlarged inferior vena cava size with normal inspiratory collapse (>50%). 5. No pericardial effusion. 6. Compared to the report of 12/06/2022 the following changes have occurred: The right ventricle measures larger. The tricuspid regurgitation has increased. Side by side comparison of images performed. 6MWT 414m ASSESSMENT / PLAN # Pulmonary arterial hypertension # Myelofibrosis # Prior splenectomy # Anemia, transfusion dependent It was a pleasure discussing the Cardiovascular Health of Jennifer Dobbs today. She presents with PH related to myelofibrosis. She is FC 3 which has slightly progressed in the past 7 months with worsening NT-pro BNP, more RV failure on TTE, and progressive signs of R heart failure. We will initiate sildenafil and spironolactone with close monitoring of her renal function and electrolytes to see if this improves her symptoms. Some of her symptoms are certainly due to myelofibrosis and anemia. In addition, it is important to exclude concomitant nocturnal hypoxia/apnea. Her last sleep study was 2020. We will repeat this. Recommendations: - Recommend overnight oximetry (OK to do locally) - Initiate spironolactone 25mg daily - Initiate sildenafil 20mg TID Patient was seen and discussed with Dr. Mayes. Yair Powell M.D. Agricultural Economics Professor UTER TECH Associated attestation - Matthew Mayes M.D. - 07/31/2023 7:23 PM COMPUTER TECH Supervisory note for Dr. Juan Luis Powell MD. I visited with and examined Ms. Jennifer Dobbs and agree with the history, exam, impression and plan as outlined by in his note from today, withthe following additions. We feel she is retaining some volume and accordingly have added spironolactone and I also advised she could take the torsemide 20 mg twice a day alternating with once a day for a few days to try to pull some of this additional volume. We will add sildenafil as well for her pulmonary hypertension. We will check her electrolytes periodically. We recommended checking for nocturnal hypoxemia which she can do in her home area since that could be aggravating pulmonary hypertension. documented in this encounter Plan of Treatment Scheduled Orders Name Type Priority Associated Diagnoses Orde r Schedule CBC with Differential, Blood Lab Routine Hypertension Pulmonary Primary (HCC) Hypertension Pulmonary (HCC) Myelofibrosis (HCC) Dyspnea On Exertion Medication Therapy [facility]iary Not Anticoagulant Expected: 01/27/2024 (Approximate), Expires: 12/12/2024 Sodium Lab Routine Hypertension Pulmonary Primary (HCC) Hypertension Pulmonary (HCC) Myelofibrosis (HCC) Dyspnea On Exertion Medication Therapy Clarifier Not Anticoagulant Expected: 01/27/2024 (Approximate), Expires: 12/12/2024 Potassium, S Lab Routine Hypertension Pulmonary Primary (HCC) Hypertension Pulmonary (HCC) Myelofibrosis (HCC) Dyspnea On Exertion Medication Therapy Clarifier Not Anticoagulant Expected: 01/27/2024 (Approximate), Expires: 12/12/2024 Creatinine with Estimated GFR Lab Routine Hypertension Pulmonary Primary (HCC) Hypertension Pulmonary (HCC) Myelofibrosis (HCC) Dyspnea On Exertion Medication Therapy Clarifier Not Anticoagulant Expected: 01/27/2024 (Approximate), Expires: 12/12/2024 AST (Aspartate Aminotransferase) Lab Routine Hypertension Pulmonary Primary (HCC) Hypertension Pulmonary (HCC) Myelofibrosis (HCC) Dyspnea On Exertion Medication Therapy Clarifier Not Anticoagulant Expected: 01/27/2024 (Approximate), Expires: 12/12/2024 Alkaline Phosphatase Lab Routine Hypertension Pulmonary Primary (HCC) Hypertension Pulmonary (HCC) Myelofibrosis (HCC) Dyspnea On Exertion Medication Therapy Clarifier Not Anticoagulant Expected: 01/27/2024 (Approximate), Expires: 12/12/2024 Bilirubin, Total Lab Routine Hypertension Pulmonary Primary (HCC) Hypertension Pulmonary (HCC) Myelofibrosis (HCC) Dyspnea On Exertion Medication Therapy Clarifier Not Anticoagulant Expected: 01/27/2024 (Approximate), Expires: 12/12/2024 BUN (Blood Urea Nitrogen) Lab Routine Hypertension Pulmonary Primary (HCC) Hypertension Pulmonary (HCC) Myelofibrosis (HCC) Dyspnea On Exertion Medication Therapy Clarifier Not Anticoagulant Expected: 01/27/2024 (Approximate), Expires: 12/12/2024 Six Minute Walk Cardiac Services Routine Hypertension Pulmonary Primary (HCC) Hypertension Pulmonary (HCC) Myelofibrosis (HCC) Dyspnea On Exertion Medication Therapy [facility] Not Anticoagulant Expected: 01/27/2024 (Approximate), Expires: 12/12/2024 NT-Pro B-Type Natriuretic Peptide (BNP) Lab Routine Hypertension Pulmonary Primary (HCC) Hypertension Pulmonary (HCC) Myelofibrosis (HCC) Dyspnea On Exertion Medication Therapy [facility]iary Not Anticoagulant Expected: 01/27/2024 (Approximate), Expires: 12/12/2024 Echo Transthoracic (TTE) Echocardiography Routine Hypertension Pulmonary Primary (HCC) Hypertension Pulmonary (HCC) Myelofibrosis (HCC) Dyspnea On Exertion Medication Therapy Clarifier Not Anticoagulant Expected: 01/27/2024 (Approximate), Expires: 12/12/2024 Scheduled Referrals Name Type Priority Associated Diagnoses Orde r Schedule Cardiovascular Disease - Education visit (clinic) Outpatient Referral Routine Hypertension Pulmonary Primary (HCC) Hypertension Pulmonary (HCC) Myelofibrosis (HCC) Dyspnea On Exertion Medication Therapy Clarifier Not Anticoagulant Expected: 07/30/2023, Expires: 10/28/2024 Cardiovascular Disease office visit (clinic) Outpatient Referral Routine Hypertension Pulmonary Primary (HCC) Hypertension Pulmonary (HCC) Myelofibrosis (HCC) Dyspnea On Exertion Medication Therapy [facility]iary Not Anticoagulant Expected: 01/27/2024 (Approximate), Expires: 12/12/2024 documented as of this encounter Visit Diagnoses Diagnosis Hypertension Pulmonary Primary (HCC)- Primary Hypertension Pulmonary (HCC) Myelofibrosis (HCC) Dyspnea On Exertion Medication Therapy [facility]itentiary Not Anticoagulant documented in this encounter Additional Health Concerns Infection Onset Date Last Indicated Resolved Time Protective Environment 01/22/2023 01/22/2023 documented as of this encounter Care Teams Irrigationist Designer Relationship Specialty Start Date End Date Elsewhere, Pcp PCP - General 11/04/21 documented as of this encounter
--- OUTSIDE RECORDS SUMMARY | 2023-08-21 10:22 | XMS_ITS | Encounter Summary ---
Author Name Unknown Organization [facility] Address [address] [place] [address] Care Team Providers Care School Admissions Representative Name Role Phone Elsewhere, Pcp Primary Care Provider Unavailabl e Encounter Details Date Type Department Care Team ([facility] st Contact Info) Description 07/04/2023 Orders Only Virtual Review in [place], [place] [address] [place] [address] Janusz Govea M.B.B.S. [address] [place] [phone] Social History Tobacco Use Types Packs/Day Years [...] Sex Assigned at Female 07/24/2021 11:03 AM FACTORY LAY OUT ENGINEER Gender Identity Female 07/24/2021 11:03 AM FACTORY LAY OUT ENGINEER Sexual Orientation Straight 07/24/2021 11 :03 AM FACTORY LAY OUT ENGINEER documented as of this encounter Plan of Treatment Not on file documented as of this encounter Visit Diagnoses Not on filedocumented in this encounter Additional Health Concerns Infection Onset Date Last Indicated Resolved Time Protective Environment 01/22/2023 01/22/2023 documented as of this encounter Care Teams School Admissions Representative Relationship Specialty Start Date End Date Elsewhere, Pcp PCP - General 11/04/21 documented as of this encounter
--- OUTSIDE RECORDS SUMMARY | 2023-08-21 10:23 | XMS_ITS | Encounter Summary ---
Author Name Unknown Organization [facility] Address [address] [place] [address] Care Team Providers Care Sash Installer Name Role Phone Elsewhere, Pcp Primary Care Provider Unavailabl e Reason for Visit * Reason Comments Med Refill Encounter Details Date Type Department Care Team ([facility] st Contact Info) Description 05/23/2023 Refill Division of Hematology in [place], [place] [address] [place] [phone] Janusz Govea M.B.BZahraaS. [address] [place] [address] Med Refill Social History Tobacco Use Types Packs/Day Years [...] Sex Assigned at Female 07/24/2021 11:03 AM JUMBO OPERATOR Gender Identity Female 07/24/2021 11:03 AM JUMBO OPERATOR Sexual Orientation Straight 07/24/2021 11 :03 AM JUMBO OPERATOR documented as of this encounter Plan of Treatment Not on file documented as of this encounter Visit Diagnoses Not on filedocumented in this encounter Additional Health Concerns Infection Onset Date Last Indicated Resolved Time Protective Environment 01/22/2023 01/22/2023 documented as of this encounter Care Teams Sash Installer Relationship Specialty Start Date End Date Elsewhere, Pcp PCP - General 11/04/21 documented as of this encounter
--- OUTSIDE RECORDS SUMMARY | 2023-08-21 10:23 | XMS_ITS | Encounter Summary ---
Author Name Unknown Organization [facility] Address [address] [place] [address] Care Team Providers Care Regional Driver Name Role Phone Elsewhere, Pcp Primary Care Provider Unavailabl e Encounter Details Date Type Department Care Team (Latest Contact Info) Description 07/01/2023 10:15 AM CONCRETE FORM SETTER Clinical Communication Virtual Review in [place], [place] [address] [place] [address] Social History Tobacco Use Types Packs/Day Years [...] Sex Assigned at Female 07/24/2021 11:03 AM CONCRETE FORM SETTER Gender Identity Female 07/24/2021 11:03 AM CONCRETE FORM SETTER Sexual Orientation Straight 07/24/2021 11 :03 AM CONCRETE FORM SETTER documented as of this encounter Plan of Treatment Not on file documented as of this encounter Visit Diagnoses Not on filedocumented in this encounter Additional Health Concerns Infection Onset Date Last Indicated Resolved Time Protective Environment 01/22/2023 01/22/2023 documented as of this encounter Care Teams Regional Driver Relationship Specialty Start Date End Date Elsewhere, Pcp PCP - General 11/04/21 documented as of this encounter
--- OUTSIDE RECORDS SUMMARY | 2023-08-21 10:23 | XMS_ITS | Encounter Summary ---
Author Name Unknown Organization [facility] Address [address] [place] [address] Care Team Providers Care Data Warehouse Specialist Name Role Phone Elsewhere, Pcp Primary Care Provider Unavailabl e Reason for Visit * Reason Onset Date Comments External Lab Entry 05/21/2023 Encounter Details Date Type Department Care Team (Latest Contact Info) Description 05/22/2023 Clinical Communication Division of Hematology in [place], [place] [address] [place] [phone] Janusz Govea M.B.B.S. [address] [place] [phone] External Lab Entry Social History Tobacco Use [...] Sex Assigned at Female 07/24/2021 11:03 AM PICKER / PACKER Gender Identity Female 07/24/2021 11:03 AM PICKER / PACKER Sexual Orientation Straight 07/24/2021 11 :03 AM PICKER / PACKER documented as of this encounter Miscellaneous Notes * Telephone Encounter - Dena Junior R.N. - 05/22/2023 10:32 AM PICKER / PACKER DX: MF [place]: Hydrea. Labs: as directed Return with you in June Getting 1 unit RBCs locally Any recommendations/ changes to the plan of care? Thank you, Dena NARAYAN ER / PACKER * Telephone Encounter - Leann Marroquin - 05/22/2023 9:02 AM CST Outside labs collected on 05/21/2023 have been received. The fax has been scanned into the patient record via [employer], and the CBC results are as noted below. Hemoglobin: 7.5 Hematocrit: 24.9 WBC: 80.78 ANC: 10.30 Platelets: 1145 Please note: Are there additional labs reported on the outside report? Yes ER / PACKER documented in this encounter Plan of Treatment Not on file documented as of this encounter Visit Diagnoses Not on filedocumented in this encounter Additional Health Concerns Infection Onset Date Last Indicated Resolved Time Protective Environment 01/22/2023 01/22/2023 documented as of this encounter Care Teams Data Warehouse Specialist Relationship Specialty Start Date End Date Elsewhere, Pcp PCP - General 11/04/21 documented as of this encounter
--- OUTSIDE RECORDS SUMMARY | 2023-08-21 10:23 | XMS_ITS | Encounter Summary ---
Author Name Unknown Organization [facility] Address [address] [place] [address] Care Team Providers Care Medical Laboratory Technician Name Role Phone Elsewhere, Pcp Primary Care Provider Unavailabl e Reason for Visit * Reason Onset Date Comments External Lab Entry 05/14/2023 Encounter Details Date Type Department Care Team (Latest Contact Info) Description 05/14/2023 Clinical Communication Division of Hematology in [place], [place] [address] [place] [phone] Janusz Govea M.B.BZahraaS. [address] [place] [phone] External Lab Entry Social History Tobacco Use [...] Sex Assigned at Female 07/24/2021 11:03 AM TUBING OILER Gender Identity Female 07/24/2021 11:03 AM TUBING OILER Sexual Orientation Straight 07/24/2021 11 :03 AM TUBING OILER documented as of this encounter Miscellaneous Notes * Telephone Encounter - Jocelyne Lang - 05/14/2023 1:45 PM CDT Outside labs collected on 05/14/2023 have been received. The fax has been scanned into the patient record via [employer], and the CBC results are as noted below. Hemoglobin: 8.0 Hematocrit: 27.3 WBC: 61.09 ANC: 12.6 Platelets: 1078 Please note: Are there additional labs reported on the outside report? No documented in this encounter Plan of Treatment Not on file documented as of this encounter Visit Diagnoses Not on filedocumented in this encounter Additional Health Concerns Infection Onset Date Last Indicated Resolved Time Protective Environment 01/22/2023 01/22/2023 documented as of this encounter Care Teams Medical Laboratory Technician Relationship Specialty Start Date End Date Elsewhere, Pcp PCP - General 11/04/21 documented as of this encounter
--- OUTSIDE RECORDS SUMMARY | 2023-08-21 10:23 | XMS_ITS | Encounter Summary ---
Author Name Unknown Organization [facility] Address [address] [place] [address] Care Team Providers Care Felt Strip Finisher Name Role Phone Elsewhere, Pcp Primary Care Provider Unavailabl e Reason for Visit * Reason Onset Date Comments External Lab Entry 06/12/2023 Encounter Details Date Type Department Care Team (Latest Contact Info) Description 06/13/2023 Clinical Communication Division of Hematology in [place], [place] [address] [place] [phone] Janusz Govea M.B.BZahraaS. [address] [place] [phone] External Lab Entry Social History Tobacco Use [...] Sex Assigned at Female 07/24/2021 11:03 AM CASTING DIRECTOR Gender Identity Female 07/24/2021 11:03 AM CASTING DIRECTOR Sexual Orientation Straight 07/24/2021 11 :03 AM CASTING DIRECTOR documented as of this encounter Miscellaneous Notes * Telephone Encounter - Jocelyne Lang - 06/13/2023 9:03 AM CST Outside labs collected on 06/12/2023 have been received. The fax has been scanned into the patient record via [employer], and the CBC results are as noted below. Hemoglobin: 6.9 Hematocrit: 24.1 WBC: 24.19 ANC: 16.9 Platelets: 962 Please note: Are there additional labs reported on the outside report? No ING DIRECTOR documented in this encounter Plan of Treatment Not on file documented as of this encounter Visit Diagnoses Not on filedocumented in this encounter Additional Health Concerns Infection Onset Date Last Indicated Resolved Time Protective Environment 01/22/2023 01/22/2023 documented as of this encounter Care Teams Felt Strip Finisher Relationship Specialty Start Date End Date Elsewhere, Pcp PCP - General 11/04/21 documented as of this encounter
--- OUTSIDE RECORDS SUMMARY | 2023-08-21 10:23 | XMS_ITS | Encounter Summary ---
Author Name Unknown Organization [facility] Address [address] [place] [address] Care Team Providers Care Associate Agent Insurance Sales Name Role Phone Elsewhere, Pcp Primary Care Provider Unavailabl e Reason for Visit * Reason Onset Date Comments External Lab Entry 04/30/2023 Encounter Details Date Type Department Care Team (Latest Contact Info) Description 04/30/2023 Clinical Communication Division of Hematology in [place], [place] [address] [place] [phone] Janusz Govea M.B.BZahraaS. [address] [place] [phone] External Lab Entry Social History Tobacco Use [...] Sex Assigned at Female 07/24/2021 11:03 AM REGISTERED NURSE MATERNITY Gender Identity Female 07/24/2021 11:03 AM REGISTERED NURSE MATERNITY Sexual Orientation Straight 07/24/2021 11 :03 AM REGISTERED NURSE MATERNITY documented as of this encounter Miscellaneous Notes * Telephone Encounter - Leann Marroquin - 04/30/2023 1:23 PM CDT Outside labs collected on 04/30/2023 have been received. The fax has been scanned into the patient record via [employer], and the CBC results are as noted below. Hemoglobin: 7.4 Hematocrit: 26.2 WBC: 71.48 ANC: 18.0 Platelets: 1047 Please note: Are there additional labs reported on the outside report? No documented in this encounter Plan of Treatment Not on file documented as of this encounter Visit Diagnoses Not on filedocumented in this encounter Additional Health Concerns Infection Onset Date Last Indicated Resolved Time Protective Environment 01/22/2023 01/22/2023 documented as of this encounter Care Teams Associate Agent Insurance Sales Relationship Specialty Start Date End Date Elsewhere, Pcp PCP - General 11/04/21 documented as of this encounter
--- OUTSIDE RECORDS SUMMARY | 2023-08-21 10:23 | XMS_ITS | Encounter Summary ---
Author Name Unknown Organization [facility] Address [address] [place] [address] Care Team Providers Care Flea Market Seller Name Role Phone Elsewhere, Pcp Primary Care Provider Unavailabl e Reason for Visit * Reason Onset Date Comments External Lab Entry 06/24/2023 Encounter Details Date Type Department Care Team (Latest Contact Info) Description 06/24/2023 Clinical Communication Division of Hematology in [place], [place] [address] [place] [phone] Janusz Govea M.B.BZahraaS. [address] [place] [phone] External Lab Entry Social History Tobacco Use [...] Sex Assigned at Female 07/24/2021 11:03 AM DECATING MACHINE OPERATOR Gender Identity Female 07/24/2021 11:03 AM DECATING MACHINE OPERATOR Sexual Orientation Straight 07/24/2021 11 :03 AM DECATING MACHINE OPERATOR documented as of this encounter Miscellaneous Notes * Telephone Encounter - Jocelyne Lang - 06/24/2023 11:47 AM CST Outside labs collected on 06/24/2023 have been received. The fax has been scanned into the patient record via [employer], and the CBC results are as noted below. Hemoglobin: 7.4 Hematocrit: 25.5 WBC: 61.62 ANC: 15.1 Platelets: 982 Please note: Are there additional labs reported on the outside report? No TING MACHINE OPERATOR documented in this encounter Plan of Treatment Not on file documented as of this encounter Visit Diagnoses Not on filedocumented in this encounter Additional Health Concerns Infection Onset Date Last Indicated Resolved Time Protective Environment 01/22/2023 01/22/2023 documented as of this encounter Care Teams Flea Market Seller Relationship Specialty Start Date End Date Elsewhere, Pcp PCP - General 11/04/21 documented as of this encounter
--- OUTSIDE RECORDS SUMMARY | 2023-08-21 10:23 | XMS_ITS | Encounter Summary ---
Author Name Unknown Organization [facility] Address [address] [place] [address] Care Team Providers Care Guitar Maker Name Role Phone Elsewhere, Pcp Primary Care Provider Unavailabl e Reason for Referral * Outpatient (Routine) - Authorized Specialty Diagnoses / Procedures Referred By Serena matson Referred To Contact Hematology Oncology Janusz Govea M.B.BZahraaSZahraa [address] [place] [phone] [facility] Referral ID Status Reason Start Date Expiration Date V isits Requested Visits Authorized [id number] Authorized 07/02/2023 07/01/2026 1 1 Scheduling Instructions September 2023 [employer] * Medication Prior Authorization - Closed Specialty Diagnoses / Procedures Referred By Serena matson Referred To Contact Janusz Govea M.B.BZahraaS. [address] [place] [phone] Referral ID Status Reason Start Date Expiration Date Visits Re quested Visits Authorized [id number] Closed 1 1 [employer] Reason for Visit * Outpatient (Routine) - Closed Specialty Diagnoses / Procedures Referred By Serena matson Referred To Contact Hematology Oncology Janusz Govea M.B.B.SZahraa [address] [place] [phone] [facility] Referral ID Status Reason Start Date Expiration Date Visits Re quested Visits Authorized [id number] Closed 03/31/2023 03/30/2026 1 1 Encounter Details Date Type Department Care Team (Latest Contact Info) Description 07/02/2023 11:00 AM LABORER VEGETABLE FARM Office Visit Division of Hematology in [place], [place] [address] [place] [phone] Janusz Govea M.B.B.S. [address] [place] [phone] Myelofibrosis Primary (HCC) (Primary Dx) Social History [...] Sex Assigned at Female 07/24/2021 11:03 AM LABORER VEGETABLE FARM Gender Identity Female 07/24/2021 11:03 AM LABORER VEGETABLE FARM Sexual Orientation Straight 07/24/2021 11 :03 AM LABORER VEGETABLE FARM documented as of this encounter Last Filed Vital Signs Vital Sign Reading Time Taken Comments Blood Pressure 114/72 07/02/2023 10:49 AM LABORER VEGETABLE FARM Pulse 85 07/02/2023 10:49 AM LABORER [employer]GETABLE FARM Temperature 36.1 ??C (97 ??F) 07/02/2023 10:49 AM LABORER VEGETABLE FARM Respiratory Rate - - Oxygen Saturation - - Inhaled Oxygen Concentration - - Weight 105 kg (230 lb 9.6 oz) 07/02/2023 10:49 A M [employer] Height 172.3 cm (5' 7.84) 07/02/2023 10:[address] Body Mass Index 35.23 07/02/2023 10:49 AM LABORER VEGETABLE FARM documented in this encounter Progress Notes * Janusz Govea M.B.B.S. - 07/02/2023 11:00 AM CST SUBJECTIVE CHIEF COMPLAINT/REASON FOR VISIT Primary myelofibrosis. HISTORY OF PRESENT ILLNESS Ms. 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 Had a trial of pacritinib in January of 2023 but was intolerant and discontinued therapy. Currently he is on Hydrea 500 mg twice daily. She has transfusion-dependent anemia and has been requiring transfusions every 3-4 weeks. Leukocytosis and thrombocytosis is being managed with Hydrea 500 mg twice daily. In terms of her symptoms, she endorses fatigue. She has joint aches and pains. She has discomfort in her belly on and off and has nausea, vomiting about once per month. Shortness of breath has improved. CURRENT MEDICATIONS Reviewed. OBJECTIVE PHYSICAL EXAMINATION Vital Signs: Height 172.3 cm, weight 104.6 kg, temperature 97, blood pressure 114/72, pulse 85. General: No acute distress. Lungs: Clear to auscultation. Heart: Regular rate and rhythm. Abdomen: Soft, nontender. Tender in the left upper quadrant. Liver is palpable 3 cm below the rightcostal margin. DIAGNOSTICS Laboratory studies reviewed. 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 At this time with respect to treatment options, I think a trial of momelotinib is reasonable. I have sent in a prescription for momelotinib 100 mg daily. Will wait on the approval from the specialty pharmacy. Side effects reviewed, which include GI toxicity, risk forperipheral neuropathy, myelosuppression, and will require close monitoring of blood counts. She is h aving counts checked every 7-10 days and transfusion support, and the hope is that momelotinib ameliorates anemia. #4 Pulmonary hypertension She is followed by Dr. Mayes. She has an upcoming appointment in July of 2023. Is on torsemide. #5 Consideration of an allogeneic transplant Her last visit with Dr. Zamarripa was in September of 2022. At that time, she was not interested in pursuing transplant. However, today she brings up the possibility that she would be open to considering it in the near future; hence, I will set up a followup visit with Dr. Zamarripa in the spring. #6 Hyperuricemia On allopurinol. #7 Followup I will see her in [address] CT Job ID: [id number]/jab [employer] documented in this encounter Plan of Treatment Scheduled Orders Name Type Priority Associated Diagnoses Order Schedule CBC with Differential, Blood Lab Routine Myelofibrosis Primary (HCC) Expected: 10/01/2023 (Approximate), Expires: 09/30/2024 SPSMA Result Pathology and Cytology Routine Myelofibrosis Primary (HCC) Expected: 10/01/2023 (Approximate), Expires: 07/02/2024 Comprehensive Metabolic Panel Lab Routine Myelofibrosis Primary (HCC) Expected: 10/01/2023 (Approximate), Expires: 09/30/2024 LD (Lactate Dehydrogenase) Lab Routine Myelofibrosis Primary (HCC) Expected: 10/01/2023 (Approximate), Expires: 09/30/2024 Scheduled Referrals Name Type Priority Associated Diagnoses Order Schedule Hematology office visit (clinic) [facility]; CMD; General Outpatient Referral Routine Expected: 10/01/2023 (Approximate), Expires: 09/30/2024 documented as of this encounter Results * Amylase, Total (07/02/2023 7:06 AM LABORER [employer]ABLE [employer]) Amylase, Total, S 41 28 - 100 U/L 07/02/2023 12:04 PM LABORER [employer]GETABLE [employer] DTL Blood (Blood, Venous) 07/02/2023 7:06 AM LABORER VEGETABLE FARM 07/02/2023 11:42 AM LABORER VEGETABLE FARM Janusz Ardon LAB BLOOD ADD-ON [facility] [address] [place] [address], [place] DTL [facility] [address] [place] [address] documented in this encounter Visit Diagnoses Diagnosis Myelofibrosis Primary (HCC)- Primary documented in this encounter Additional Health Concerns Infection Onset Date Last Indicated Resolved Time Protective Environment 01/22/2023 01/22/2023 documented as of this encounter Care Teams Guitar Maker Relationship Specialty Start Date End Date Elsewhere, Pcp PCP - General 11/04/21 documented as of this encounter
--- OUTSIDE RECORDS SUMMARY | 2023-08-21 10:23 | XMS_ITS | Encounter Summary ---
Author Name Unknown Organization [facility] Address [address] [place] [address] Care Team Providers Care Brick Shader Name Role Phone Elsewhere, Pcp Primary Care Provider Unavailabl e Encounter Details Date Type Department Care Team (Latest Contact Info) Description 07/02/2023 6:55 AM FABRIC FINISHER - 07/02/2023 11:59 PM FABRIC FINISHER Hospital Encounter Department of Laboratory Medicine and Pathology, [facility] in [place], [place] [address] [place] [phone] Janusz Govea M.B.BZahraaS. [address] [place] [phone] Myelofibrosis Primary (HCC) Discharge Disposition: Home or Self Care Social [...] Sex Assigned at Female 07/24/2021 11:03 AM FABRIC FINISHER Gender Identity Female 07/24/2021 11:03 AM FABRIC FINISHER Sexual Orientation Straight 07/24/2021 11 :03 AM FABRIC FINISHER documented as of this encounter Medications at [...] Acute Pain Exception. 8 tablet 0 03/25/2022 sennosides (SENOKOT) 8.6 mg tablet Take 1 [...] because they are new for her. 0 pacritinib (VONJO) 100 mg capsule Take 1 capsule (100 mg total) by mouth 2 (two) times a day. 60 capsule 3 01/22/2023 07/24/2023 documented as of this encounter Plan of Treatment Not on file documented as of this encounter Procedures Procedure Name Priority Date/Time Associated Diagnosis Comments SPSMA RESULT Routine 07/02/2023 7:08 AM FABRIC FINISHER Myelofibrosis Primary (HCC) POTASSIUM, PLASMA Routine 07/02/2023 7:0 8 AM FABRIC FINISHER Myelofibrosis Primary (HCC) CBC WITH DIFFERENTIAL, B Routine 07/02/2023 7:08 AM FABRIC FINISHER Myelofibrosis Primary (HCC) URIC ACID, S/P Routine 07/02/2023 7:08 AM FABRIC FINISHER Myelofibrosis Primary (HCC) COMPREHENSIVE METABOLIC PANEL, S/P Routine 07/02/2023 7:08 AM FABRIC FINISHER Myelofibrosis Primary (HCC) documented in this encounter Results * Potassium, Plasma (07/02/2023 7:08 AM FABRIC FINISHER) Potassium, P 4.4 3.6 - 5.2 mmol/L 07/02/2023 8:28 AM FABRIC FINISHER DTL Blood (Blood, Venous) 07/02/2023 7:08 AM FABRIC FINISHER 07/02/2023 7:45 AM FABRIC FINISHER Janusz Ardon LAB BLOOD ADD-ON [facility] [address] [place] [address], [facility] DTL [facility] [address] [place] [address] * (ABNORMAL) Comprehensive Metabolic Panel (07/02/2023 7:08 AM FABRIC FINISHER) Potassium, S CANCELED mmol/L 07/02/2023 9:12 AM FABRIC FINISHER DTL Comment: Duplicate test request. Result canceled by the ancillary. Sodium, S 139 135 - 145 mmol/L 07/02/2023 8:59 AM FABRIC FINISHER DTL Chloride, S 101 98 - 107 mmol/L 07/02/2023 8:59 AM FABRIC FINISHER DTL Bicarbonate, S 28 22 - 29 mmol/L 07/02/2023 8:59 AM FABRIC FINISHER DTL Anion Gap 10 7 - 15 07/02/2023 8:59 AM FABRIC FINISHER DTL BUN (Blood Urea Nitrogen), S 31(H) 6 - 21 mg/dL 07/02/2023 8:59 AM FABRIC FINISHER DTL Creatinine 1.06(H) 0.59 - 1.04 mg/dL 07/02/2023 8:59 AM FABRIC FINISHER DTL Estimated GFR (eGFR) 62 >=60 mL/min/BS A 07/02/2023 8:59 AM FABRIC FINISHER DTL Comment: Estimated GFR calculated using the 2020 CKD_EPI creatinine equation. Calcium, Total, S 9.1 8.6 - 10.0 mg/dL 07/02/2023 8:59 AM FABRIC FINISHER DTL Glucose, S 100 70 - 140 mg/dL 07/02/2023 8:59 AM FABRIC FINISHER DTL Protein, Total, S 6.2(L) 6.3 - 7.9 g/dL 07/02/2023 8:59 AM FABRIC FINISHER DTL Albumin, S 4.3 3.5 - 5.0 g/dL 07/02/2023 8:59 AM FABRIC FINISHER DTL Aspartate Aminotransferase (AST), S 50(H) 8 - 43 U/L 07/02/2023 8:59 AM FABRIC FINISHER DTL Alkaline Phosphatase, S 234(H) 35 - 104 U/L 07/02/2023 8:59 AM FABRIC FINISHER DTL Alanine Aminotransferase (ALT), S 65(H) 7 - 45 U/L 07/02/2023 8:59 AM FABRIC FINISHER DTL Bilirubin, Total, S 0.5 0.0 - 1.2 mg/dL 07/02/2023 8:59 AM FABRIC FINISHER DTL Blood (Blood, Venous) 07/02/2023 7:08 AM FABRIC FINISHER 07/02/2023 7:45 AM FABRIC FINISHER Janusz Ardon LAB BLOOD ADD-ON [facility] [place] [address] [place] [address], [facility] [address] [place] [address] * (ABNORMAL) SPSMA Result (07/02/2023 7:08 AM FABRIC FINISHER) Neutrophilic Segs and Bands 59 50 - 75 % 07/02/2023 10:35 AM FABRIC FINISHER DHPM Lymphocytes 12(L) 18 - 42 % 07/02/2023 10:35 AM FABRIC FINISHER DHPM Monocytes 13(H) 2 - 11 % 07/02/2023 10:35 AM FABRIC FINISHER DHPM Eosinophils 1 1 - 3 % 07/02/2023 10:35 AM FABRIC FINISHER DHPM Metamyelocytes 5(H) <1 % 07/02/2023 10:35 AM FABRIC FINISHER DHPM Myelocytes 10(H) <0.5 % 07/02/2023 10:35 AM FABRIC FINISHER DHPM Megakaryocytes 3(H) <1 /100 WBC 07/02/2023 10:35 AM FABRIC FINISHER DHPM Nucleated RBC 183 /100 WBC 07/02/2023 10:35 AM FABRIC FINISHER DHPM Manual Absolute Neutrophil Count 12.21(H) 1.56 - 6.45 x10(9)/L 07/02/2023 10:36 AM FABRIC FINISHER DHPM Comment: REVISED RESULTS ----ADDITIONAL INFORMATION---- The manual absolute neutrophil count is derived from a manual differential count and therefore is not exactly comparable to the automated absolute neutrophil count. ----PREVIOUSLY REPORTED ---- 16.34, Flagged as: Abnormal_High (Reported 07/02/2023 10:35) Interpretation See Comment 10:35 AM FABRIC FINISHER PM Comment:No increase in dacro cytes is seen. Reviewed by: Liz 07/02/2023 10:35 AM FABRIC FINISHER [facility] Blood (Blood, Venous) 07/02/2023 7:08 AM FABRIC FINISHER 07/02/2023 7:32 AM FABRIC FINISHER Janusz Ardon LAB BLOOD ADD-ON [facility] [place] [address] [place] [address], [facility] [address] [place] [address] * (ABNORMAL) CBC with Differential, Blood (07/02/2023 7:08 AM FABRIC FINISHER) Hemoglobin 8.0(L) 11.6 - 15.0 g/dL 07/02/2023 8:08 AM FABRIC FINISHER DTL Hematocrit 26.5(L) 35.5 - 44.9 % 07/02/2023 8:08 AM FABRIC FINISHER DTL Erythrocytes 2.80(L) 3.92 - 5.13 x10(12)/L 07/02/2023 8:08 AM FABRIC FINISHER DTL MCV 94.6 78.2 - 97.9 fL 07/02/2023 8:08 AM FABRIC FINISHER DTL RBC Distrib Width 26.9(H) 12.2 - 16.1 % 07/02/2023 10:35 AM FABRIC FINISHER DTL Platelet Count 940(H) 157 - 371 x10(9)/L 07/02/2023 8:08 AM FABRIC FINISHER DTL Leukocytes 20.7(H) 3.4 - 9.6 x10(9)/L 07/02/2023 10:36 AM FABRIC FINISHER PM Comment: REVISED RESULTS Corrected for normoblasts. ----PREVIOUSLY REPORTED ---- 27.7, Flagged as: Abnormal_High (Reported 07/02/2023 10:35) Neutrophils See Comment 1.56 - 6.45 x10(9)/L 07/02/2023 10:35 AM FABRIC FINISHER PM Comment:Auto-diff results no t valid. See manual differential. Blood (Blood, Venous) 07/02/2023 7:08 AM FABRIC FINISHER 07/02/2023 7:32 AM FABRIC FINISHER Janusz ArringtonB.S. LAB BLOOD ADD-ON [facility] [place] [address] [place] [address], [facility] [address] [place] [address] [facility] 200 [place] [address] * Uric Acid (07/02/2023 7:08 AM FABRIC FINISHER) Uric Acid, S 5.3 2.7 - 6.1 mg/dL 07/02/2023 8:59 AM FABRIC FINISHER DTL Blood (Blood, Venous) 07/02/2023 7:08 AM FABRIC FINISHER 07/02/2023 7:45 AM FABRIC FINISHER Janusz ArringtonB.S. LAB BLOOD ADD-ON Performing Organization Address City/[facility]/ZIP Co de Phone Number [facility] [place] [address] [place] [address], [facility] 200 [place] [address] documented in this encounter Visit Diagnoses Diagnosis Myelofibrosis Primary (HCC) documented in this encounter Additional Health Concerns Infection Onset Date Last Indicated Resolved Time Protective Environment 01/22/2023 01/22/2023 documented as of this encounter Care Teams Brick Shader Relationship Specialty Start Date End Date Elsewhere, Pcp PCP - General 11/04/21 documented as of this encounter
--- OUTSIDE RECORDS SUMMARY | 2023-08-21 10:23 | XMS_ITS | Encounter Summary ---
Author Name Unknown Organization [facility] Address [address] [place] [address] Care Team Providers Care Boot And Shoe Laborer Name Role Phone Elsewhere, Pcp Primary Care Provider Unavailabl e Encounter Details Date Type Department Care Team ([facility] st Contact Info) Description 05/02/2023 Clinical Communication Division of Hematology in [place], [place] [address] [place] [phone] Janusz Govea M.B.B.S. [address] [place] [phone] Social History Tobacco Use Types Packs/Day Years [...] Sex Assigned at Female 07/24/2021 11:03 AM EARTH MOVER Gender Identity Female 07/24/2021 11:03 AM EARTH MOVER Sexual Orientation Straight 07/24/2021 11 :03 AM EARTH MOVER documented as of this encounter Plan of Treatment Not on file documented as of this encounter Visit Diagnoses Not on filedocumented in this encounter Additional Health Concerns Infection Onset Date Last Indicated Resolved Time Protective Environment 01/22/2023 01/22/2023 documented as of this encounter Care Teams Boot And Shoe Laborer Relationship Specialty Start Date End Date Elsewhere, Pcp PCP - General 11/04/21 documented as of this encounter
--- OUTSIDE RECORDS SUMMARY | 2023-08-21 10:23 | XMS_ITS | Encounter Summary ---
Author Name Unknown Organization [facility] Address [address] [place] [address] Care Team Providers Care Corner Brace Block Machine Operator Name Role Phone Elsewhere, Pcp Primary Care Provider Unavailabl e Reason for Visit * Reason Comments Med Refill Encounter Details Date Type Department Care Team ([facility] st Contact Info) Description 05/23/2023 Refill Division of Hematology in [place], [place] [address] [place] [place] [phone] Janusz Govea M.B.BZahraaS. [address] [place] [phone] Med Refill Social History Tobacco Use Types [...] Sex Assigned at Female 07/24/2021 11:03 AM ENDBAND CUTTER HAND Gender Identity Female 07/24/2021 11:03 AM ENDBAND CUTTER HAND Sexual Orientation Straight 07/24/2021 11 :03 AM ENDBAND CUTTER HAND documented as of this encounter Plan of Treatment Not on file documented as of this encounter Visit Diagnoses Not on filedocumented in this encounter Additional Health Concerns Infection Onset Date Last Indicated Resolved Time Protective Environment 01/22/2023 01/22/2023 documented as of this encounter Care Teams Corner Brace Block Machine Operator Relationship Specialty Start Date End Date Elsewhere, Pcp PCP - General 11/04/21 documented as of this encounter
--- OUTSIDE RECORDS SUMMARY | 2023-08-21 10:23 | XMS_ITS | Encounter Summary ---
Author Name Unknown Organization [facility] Address [address] [place] [address] Care Team Providers Care Hob Grinder Name Role Phone Elsewhere, Pcp Primary Care Provider Unavailabl e Reason for Visit * Reason Onset Date Comments Forms 05/30/2023 Exemption letter for Jury Duty Encounter Details Date Type Department Care Team (Latest Contact Info) Description 05/30/2023 Clinical Communication Division of Hematology in [place], [place] [address] [place] [phone] Janusz Govea M.B.BZahraaS. [address] [place] [phone] Forms (Exemption letter for Jury Duty) Social History Tobacco Use Types Packs/Day Years [...] Sex Assigned at Female 07/24/2021 11:03 AM FRONT DESK SPECIALIST Gender Identity Female 07/24/2021 11:03 AM FRONT DESK SPECIALIST Sexual Orientation Straight 07/24/2021 11 :03 AM FRONT DESK SPECIALIST documented as of this encounter Plan of Treatment Not on file documented as of this encounter Visit Diagnoses Not on filedocumented in this encounter Additional Health Concerns Infection Onset Date Last Indicated Resolved Time Protective Environment 01/22/2023 01/22/2023 documented as of this encounter Care Teams Hob Grinder Relationship Specialty Start Date End Date Elsewhere, Pcp PCP - General 11/04/21 documented as of this encounter
--- OUTSIDE RECORDS SUMMARY | 2023-08-21 10:23 | XMS_ITS | Encounter Summary ---
Author Name Unknown Organization [facility] Address [address] [place] [address] Care Team Providers Care Loss Mitigation Specialist Name Role Phone Elsewhere, Pcp Primary Care Provider Unavailabl e Reason for Visit * Reason Onset Date Comments External Lab Entry 06/03/2023 Encounter Details Date Type Department Care Team (Latest Contact Info) Description 06/03/2023 Clinical Communication Division of Hematology in [place], [place] [address] [place] [phone] Janusz Govea M.B.B.S. [address] [place] [phone] External Lab Entry Social History Tobacco Use [...] Sex Assigned at Female 07/24/2021 11:03 AM BELT CONVEYOR DRIER Gender Identity Female 07/24/2021 11:03 AM BELT CONVEYOR DRIER Sexual Orientation Straight 07/24/2021 11 :03 AM BELT CONVEYOR DRIER documented as of this encounter Miscellaneous Notes * Telephone Encounter - Dena Junior R.N. - 06/04/2023 8:35 AM BELT CONVEYOR DRIER DX: MF TX: Hydrea. Labs: as directed Return with you in June Getting 1 unit RBCs locally Any recommendations/ changes to the plan of care? Thank you, Dena NARAYAN CONVEYOR DRIER * Telephone Encounter - Jocelyne Lang - 06/03/2023 4:56 PM CST Outside labs collected on 06/03/2023 have been received. The fax has been scanned into the patient record via [employer], and the CBC results are as noted below. Hemoglobin: 6.7 Hematocrit: 23.2 WBC: 28.45 ANC: 13.7 Platelets: 1023 Please note: Are there additional labs reported on the outside report? No CONVEYOR DRIER documented in this encounter Plan of Treatment Not on file documented as of this encounter Visit Diagnoses Not on filedocumented in this encounter Additional Health Concerns Infection Onset Date Last Indicated Resolved Time Protective Environment 01/22/2023 01/22/2023 documented as of this encounter Care Teams Loss Mitigation Specialist Relationship Specialty Start Date End Date Elsewhere, Pcp PCP - General 11/04/21 documented as of this encounter
--- OUTSIDE RECORDS SUMMARY | 2023-08-21 10:23 | XMS_ITS | Encounter Summary ---
Author Name Unknown Organization [facility] Address [address] [place] [address] Care Team Providers Care Music Education Adjunct Professor Name Role Phone Elsewhere, Pcp Primary Care Provider Unavailabl e Reason for Visit * Reason Onset Date Comments External Lab Entry 06/09/2023 Encounter Details Date Type Department Care Team (Latest Contact Info) Description 06/09/2023 Clinical Communication Division of Hematology in [place], [place] [address] [place] [phone] Janusz Govea M.B.B.S. [address] [place] [phone] External Lab Entry Social History Tobacco Use [...] Sex Assigned at Female 07/24/2021 11:03 AM SURGICAL TECH Gender Identity Female 07/24/2021 11:03 AM SURGICAL TECH Sexual Orientation Straight 07/24/2021 11 :03 AM SURGICAL TECH documented as of this encounter Miscellaneous Notes * Telephone Encounter - Jocelyne Lang - 06/09/2023 12:13 PM CST Outside labs collected on 06/09/2023 have been received. The fax has been scanned into the patient record via [employer], and the CBC results are as noted below. Hemoglobin: 7.8 Hematocrit: 26.8 WBC: 35.96 ANC: 21.1 Platelets: 1104 Please note: Are there additional labs reported on the outside report? No ICAL TECH documented in this encounter Plan of Treatment Not on file documented as of this encounter Visit Diagnoses Not on filedocumented in this encounter Additional Health Concerns Infection Onset Date Last Indicated Resolved Time Protective Environment 01/22/2023 01/22/2023 documented as of this encounter Care Teams Music Education Adjunct Professor Relationship Specialty Start Date End Date Elsewhere, Pcp PCP - General 11/04/21 documented as of this encounter
--- OUTSIDE RECORDS SUMMARY | 2023-08-21 10:24 | XMS_ITS | Encounter Summary ---
Author Name Unknown Organization [facility] Address [address] [place] [address] Care Team Providers Care Disc Ruler Operator Name Role Phone Elsewhere, Pcp Primary Care Provider Unavailabl e Encounter Details Date Type Department Care Team (Latest Contact Info) Description 04/11/2023 Intake [facility] Social History Tobacco Use Types Packs/Day Years [...] Sex Assigned at Female 07/24/2021 11:03 AM AUTO CAMP ATTENDANT Gender Identity Female 07/24/2021 11:03 AM AUTO CAMP ATTENDANT Sexual Orientation Straight 07/24/2021 11 :03 AM AUTO CAMP ATTENDANT documented as of this encounter Plan of Treatment Not on file documented as of this encounter Visit Diagnoses Not on filedocumented in this encounter Additional Health Concerns Infection Onset Date Last Indicated Resolved Time Protective Environment 01/22/2023 01/22/2023 documented as of this encounter Care Teams Disc Ruler Operator Relationship Specialty Start Date End Date Elsewhere, Pcp PCP - General 11/04/21 documented as of this encounter
--- OUTSIDE RECORDS SUMMARY | 2023-08-21 10:24 | XMS_ITS | Encounter Summary ---
Author Name Unknown Organization [facility] Address [address] [place] [address] Care Team Providers Care Heating And Refrigeration Inspector Name Role Phone Elsewhere, Pcp Primary Care Provider Unavailabl e Reason for Visit * Reason Onset Date Comments External Lab Entry 01/30/2023 Encounter Details Date Type Department Care Team (Latest Contact Info) Description 01/31/2023 Clinical Communication Division of Hematology in [place], [place] [address] [place] [phone] Janusz Govea M.B.BZahraaS. [address] [place] [phone] External Lab Entry Social History Tobacco Use [...] Date Recorded Dental: Regular Dentist Unknown 09/06/19 Sex and Gender Information Value Date Recorded Sex Assigned at Female 07/24/2021 11:03 AM ACID CONCENTRATOR Gender Identity Female 07/24/2021 11:03 AM ACID CONCENTRATOR Sexual Orientation Straight 07/24/2021 11 :03 AM ACID CONCENTRATOR documented as of this encounter Miscellaneous Notes * Telephone Encounter - Jocelyne Lang - 01/31/2023 9:08 AM CDT Outside labs collected on 01/30/2023 have been received. The fax has been scanned into the patient record via [employer], and the CBC results are as noted below. Hemoglobin: 6.9 Hematocrit: 24.1 WBC: 84.71 ANC: 18.2 Platelets: 1097 Please note: Are there additional labs reported on the outside report? No documented in this encounter Plan of Treatment Not on file documented as of this encounter Visit Diagnoses Not on filedocumented in this encounter Additional Health Concerns Infection Onset Date Last Indicated Resolved Time Protective Environment 01/22/2023 01/22/2023 documented as of this encounter Care Teams Heating And Refrigeration Inspector Relationship Specialty Start Date End Date Elsewhere, Pcp PCP - General 11/04/21 documented as of this encounter
--- OUTSIDE RECORDS SUMMARY | 2023-08-21 10:24 | XMS_ITS | Encounter Summary ---
Author Name Unknown Organization [facility] Address [address] [place] [address] Care Team Providers Care Salvage Cutter Name Role Phone Elsewhere, Pcp Primary Care Provider Unavailabl e Encounter Details Date Type Department Care Team ([facility] st Contact Info) Description 03/10/2023 Clinical Communication Division of Hematology in [place], [place] [address] [place] [phone] Janusz Govea M.B.B.S. [address] [place] [phone] Social History Tobacco Use Types Packs/Day Years [...] Sex Assigned at Female 07/24/2021 11:03 AM OBSTETRICS GYNECOLOGY PHYSICIAN Gender Identity Female 07/24/2021 11:03 AM OBSTETRICS GYNECOLOGY PHYSICIAN Sexual Orientation Straight 07/24/2021 11 :03 AM OBSTETRICS GYNECOLOGY PHYSICIAN documented as of this encounter Miscellaneous Notes * Telephone Encounter - Dena Junior R.N. - 03/10/2023 11:25 AM CDT Received a call from Mariann at the [facility] that Jennifer was in today and reported visual changes, worsening headaches and fatigue. Mariann noted Jennifer was crying when she was in for her lab appointment. They didn't want to start a transfusion and have a reaction when it wouldn't be a reaction based on these symptoms. I called and spoke with Gian. I requested that he bring Jennifer to the ER in [place] given her vision changes and headaches and he stated that she couldn't come today as she had to get blood. I toldhim that the blood could be given in the ER- they would have to redraw labs but they could do it there. He states that the vision changes are new and that Jennifer sees a spider looking thing in one of hereyes. I told him that I wanted her to come immediately to the ER here in [place]. He states thataden doesn't think she can travel. I told him to take her to the nearest ER for evaluation. I am concerned about her losing vision. He said Do you think that could happen. I said I don't know what is going on, but that is a possibility and she needs to be seen. Gian states that the headaches are getting worse over the last week and they are very bad now. Once again I told him to bring Jennifer to the ER. He said he will see what he can do I returned call for further symptom assessment. They report ongoing balance issues with changing position, she does report taking aspirin for her headaches but it is not working. They report negatives as: uneven smile, uneven arms when holding them up, difficulty writing a word, or difficulty speaking. Given the remaining spider in the eye, the aspirin for the headache, and the headache I still recommend that she come to the emergency room for evaluation. documented in this encounter Plan of Treatment Not on file documented as of this encounter Visit Diagnoses Not on filedocumented in this encounter Additional Health Concerns Infection Onset Date Last Indicated Resolved Time Protective Environment 01/22/2023 01/22/2023 documented as of this encounter Care Teams Salvage Cutter Relationship Specialty Start Date End Date Elsewhere, Pcp PCP - General 11/04/21 documented as of this encounter
--- OUTSIDE RECORDS SUMMARY | 2023-08-21 10:24 | XMS_ITS | Encounter Summary ---
Author Name Unknown Organization [facility] Address [address] [place] [address] Care Team Providers Care Receiving Coordinator Name Role Phone Elsewhere, Pcp Primary Care Provider Unavailabl e Encounter Details Date Type Department Care Team (Late st Contact Info) Description 02/27/2023 Specialty Pharmacy [facility] [address] [place] [phone] Kurt Schafer, Pharm.D., R.Ph. [address] [place] [phone] Social History Tobacco Use Types Packs/Day Years [...] Sex Assigned at Female 07/24/2021 11:03 AM GARMENT LINER Gender Identity Female 07/24/2021 11:03 AM GARMENT LINER Sexual Orientation Straight 07/24/2021 11 :03 AM GARMENT LINER documented as of this encounter Miscellaneous Notes * Telephone Encounter - Kurt Schafer, Pharm.D., R.Ph. - 02/27/2023 1:50 PM CDT [facility] service discontinued at this time. documented in this encounter Plan of Treatment Not on file documented as of this encounter Visit Diagnoses Not on filedocumented in this encounter Additional Health Concerns Infection Onset Date Last Indicated Resolved Time Protective Environment 01/22/2023 01/22/2023 documented as of this encounter Care Teams Receiving Coordinator Relationship Specialty Start Date End Date Elsewhere, Pcp PCP - General 11/04/21 documented as of this encounter
--- OUTSIDE RECORDS SUMMARY | 2023-08-21 10:24 | XMS_ITS | Encounter Summary ---
Author Name Unknown Organization [facility] Address [address] [place] [address] Care Team Providers Care Coach Name Role Phone Elsewhere, Pcp Primary Care Provider Unavailabl e Reason for Visit * Reason Onset Date Comments External Lab Entry 04/08/2023 Encounter Details Date Type Department Care Team (Latest Contact Info) Description 04/08/2023 Clinical Communication Division of Hematology in [place], [place] [address] [place] [phone] Janusz Govea M.B.BZahraaS. [address] [place] [phone] External Lab Entry Social History Tobacco Use [...] Sex Assigned at Female 07/24/2021 11:03 AM DATA ENTRY OPERATOR Gender Identity Female 07/24/2021 11:03 AM DATA ENTRY OPERATOR Sexual Orientation Straight 07/24/2021 11 :03 AM DATA ENTRY OPERATOR documented as of this encounter Miscellaneous Notes * Telephone Encounter - Jocelyne Lang - 04/08/2023 12:20 PM CDT Outside labs collected on 04/08/2023 have been received. The fax has been scanned into the patient record via [employer], and the CBC results are as noted below. Hemoglobin: 7.5 Hematocrit: 25.7 WBC: 74.42 ANC: 12.3 Platelets: 997 Please note: Are there additional labs reported on the outside report? No documented in this encounter Plan of Treatment Not on file documented as of this encounter Visit Diagnoses Not on filedocumented in this encounter Additional Health Concerns Infection Onset Date Last Indicated Resolved Time Protective Environment 01/22/2023 01/22/2023 documented as of this encounter Care Teams Coach Relationship Specialty Start Date End Date Elsewhere, Pcp PCP - General 11/04/21 documented as of this encounter
--- OUTSIDE RECORDS SUMMARY | 2023-08-21 10:24 | XMS_ITS | Encounter Summary ---
Author Name Unknown Organization [facility] Address [address] [place] [address] Care Team Providers Care Printed Circuit Boards Inspector Name Role Phone Elsewhere, Pcp Primary Care Provider Unavailabl e Encounter Details Date Type Department Care Team (Late st Contact Info) Description 04/11/2023 Documentation Division of Hematology in [place], [place] [address] [place] [phone] Janusz Govea M.B.B.S. [address] [place] [phone] Social History Tobacco Use Types Packs/Day Years [...] Sex Assigned at Female 07/24/2021 11:03 AM LIFE GUARD Gender Identity Female 07/24/2021 11:03 AM LIFE GUARD Sexual Orientation Straight 07/24/2021 11 :03 AM LIFE GUARD documented as of this encounter Progress Notes * Janusz Govea M.B.B.S. - 04/11/2023 3:01 PM CDT I spoke to Mr Dobbs. Jennifer has been feeling worse with lower extremity swelling, abdominal pain, vomiting, diarrhea, headache, vision changes. 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 Leukocytosis and thrombocytosis post splenectomy. Currently on hydrea 500 mg twice daily. Given her symptoms, I have recommended E.D. evaluation for imaging of head, abdomen, followed by admission to hematology for management. documented in this encounter Plan of Treatment Not on file documented as of this encounter Visit Diagnoses Not on filedocumented in this encounter Additional Health Concerns Infection Onset Date Last Indicated Resolved Time Protective Environment 01/22/2023 01/22/2023 documented as of this encounter Care Teams Printed Circuit Boards Inspector Relationship Specialty Start Date End Date Elsewhere, Pcp PCP - General 11/04/21 documented as of this encounter
--- OUTSIDE RECORDS SUMMARY | 2023-08-21 10:24 | XMS_ITS | Encounter Summary ---
Author Name Unknown Organization [facility] Address [address] [place] [address] Care Team Providers Care Fish Straightener Name Role Phone Elsewhere, Pcp Primary Care Provider Unavailabl e Reason for Visit * Reason Onset Date Comments External Lab Entry 03/24/2023 Encounter Details Date Type Department Care Team (Latest Contact Info) Description 03/24/2023 Clinical Communication Division of Hematology in [place], [place] [address] [place] [phone] Janusz Govea M.B.B.S. [address] [place] [phone] External Lab Entry Social History Tobacco Use [...] Sex Assigned at Female 07/24/2021 11:03 AM MANAGER R D Gender Identity Female 07/24/2021 11:03 AM MANAGER R D Sexual Orientation Straight 07/24/2021 11 :03 AM MANAGER R D documented as of this encounter Miscellaneous Notes * Telephone Encounter - Amber Shultz R.N. - 03/24/2023 3:12 PM CDT Diagnosis: Myelofibrosis Current Therapy: Hydrea 500 mg twice daily Current Lab Monitoring: as directed Current Lab Values: 03/24/2023: Hemoglobin: 7.1 Hematocrit: 24.7 WBC: 90.57 (Also there is a corrected value on lab fax stating c-WBC 27.03) ANC: 13.6 Platelets: 1130 Please advise if any changes / recommendations? * Telephone Encounter - Jocelyne Lang - 03/24/2023 2:31 PM CDT Outside labs collected on 03/24/2023 have been received. The fax has been scanned into the patient record via [employer], and the CBC results are as noted below. Hemoglobin: 7.1 Hematocrit: 24.7 WBC: 90.57 ANC: 13.6 Platelets: 1130 Please note: Are there additional labs reported on the outside report? No documented in this encounter Plan of Treatment Not on file documented as of this encounter Visit Diagnoses Not on filedocumented in this encounter Additional Health Concerns Infection Onset Date Last Indicated Resolved Time Protective Environment 01/22/2023 01/22/2023 documented as of this encounter Care Teams Fish Straightener Relationship Specialty Start Date End Date Elsewhere, Pcp PCP - General 11/04/21 documented as of this encounter
--- OUTSIDE RECORDS SUMMARY | 2023-08-21 10:24 | XMS_ITS | Encounter Summary ---
Author Name Unknown Organization [facility] Address [address] [place] [address] Care Team Providers Care Mri Technician Name Role Phone Elsewhere, Pcp Primary Care Provider Unavailabl e Reason for Referral * Outpatient (Routine) - Closed Specialty Diagnoses / Procedures Referred By Contac t Referred To Contact Hematology Oncology Janusz Govea M.B.B.S. [address] [place] [phone] [facility] Referral ID Status Reason Start Date Expiration Date Visits Re quested Visits Authorized [id number] Closed 03/31/2023 03/30/2026 1 1 Encounter Details Date Type Department Care Team (Late st Contact Info) Description 03/31/2023 Orders Only Division of Hematology in [place], [place] [address] [place] [phone] Janusz Govea M.B.B.S. [address] [place] [phone] Myelofibrosis Primary (HCC) (Primary Dx) Social History [...] Sex Assigned at Female 07/24/2021 11:03 AM PAPER CUP HANDLE MACHINE OPERATOR Gender Identity Female 07/24/2021 11:03 AM PAPER CUP HANDLE MACHINE OPERATOR Sexual Orientation Straight 07/24/2021 11 :03 AM PAPER CUP HANDLE MACHINE OPERATOR documented as of this encounter Plan of Treatment Scheduled Referrals Name Type Priority Associated Diagnoses Order Schedule Hematology office visit (clinic) [facility]; CMD; General Outpatient Referral Routine Expected: 04/30/2023 (Approximate), Expires: 06/30/2024 documented as of this encounter Results * Potassium, Plasma (07/02/2023 7:08 AM PAPER CUP HANDLE MACHINE OPERATOR) Potassium, P 4.4 3.6 - 5.2 mmol/L 07/02/2023 8:28 AM PAPER CUP HANDLE MACHINE OPERATOR DTL Blood (Blood, Venous) 07/02/2023 7:08 AM PAPER CUP HANDLE MACHINE OPERATOR 07/02/2023 7:45 AM PAPER CUP HANDLE MACHINE OPERATOR Janusz Ardon LAB BLOOD ADD-ON [facility] 200 [place] [address], [facility] [place] 200 [place] [address] * (ABNORMAL) Comprehensive Metabolic Panel (07/02/2023 7:08 AM PAPER CUP HANDLE MACHINE OPERATOR) Potassium, S CANCELED mmol/L 07/02/2023 9:12 AM PAPER CUP HANDLE MACHINE OPERATOR DTL Comment: Duplicate test request. Result canceled by the ancillary. Sodium, S 139 135 - 145 mmol/L 07/02/2023 8:59 AM PAPER CUP HANDLE MACHINE OPERATOR DTL Chloride, S 101 98 - 107 mmol/L 07/02/2023 8:59 AM PAPER CUP HANDLE MACHINE OPERATOR DTL Bicarbonate, S 28 22 - 29 mmol/L 07/02/2023 8:59 AM PAPER CUP HANDLE MACHINE OPERATOR DTL Anion Gap 10 7 - 15 07/02/2023 8:59 AM PAPER CUP HANDLE MACHINE OPERATOR DTL BUN (Blood Urea Nitrogen), S 31(H) 6 - 21 mg/dL 07/02/2023 8:59 AM PAPER CUP HANDLE MACHINE OPERATOR DTL Creatinine 1.06(H) 0.59 - 1.04 mg/dL 07/02/2023 8:59 AM PAPER CUP HANDLE MACHINE OPERATOR DTL Estimated GFR (eGFR) 62 >=60 mL/min/BS A 07/02/2023 8:59 AM PAPER CUP HANDLE MACHINE OPERATOR DTL Comment: Estimated GFR calculated using the 2020 CKD_EPI creatinine equation. Calcium, Total, S 9.1 8.6 - 10.0 mg/dL 07/02/2023 8:59 AM PAPER CUP HANDLE MACHINE OPERATOR DTL Glucose, S 100 70 - 140 mg/dL 07/02/2023 8:59 AM PAPER CUP HANDLE MACHINE OPERATOR DTL Protein, Total, S 6.2(L) 6.3 - 7.9 g/dL 07/02/2023 8:59 AM PAPER CUP HANDLE MACHINE OPERATOR DTL Albumin, S 4.3 3.5 - 5.0 g/dL 07/02/2023 8:59 AM PAPER CUP HANDLE MACHINE OPERATOR DTL Aspartate Aminotransferase (AST), S 50(H) 8 - 43 U/L 07/02/2023 8:59 AM PAPER CUP HANDLE MACHINE OPERATOR DTL Alkaline Phosphatase, S 234(H) 35 - 104 U/L 07/02/2023 8:59 AM PAPER CUP HANDLE MACHINE OPERATOR DTL Alanine Aminotransferase (ALT), S 65(H) 7 - 45 U/L 07/02/2023 8:59 AM PAPER CUP HANDLE MACHINE OPERATOR DTL Bilirubin, Total, S 0.5 0.0 - 1.2 mg/dL 07/02/2023 8:59 AM PAPER CUP HANDLE MACHINE OPERATOR DTL Blood (Blood, Venous) 07/02/2023 7:08 AM PAPER CUP HANDLE MACHINE OPERATOR 07/02/2023 7:45 AM PAPER CUP HANDLE MACHINE OPERATOR Janusz Ardon LAB BLOOD ADD-ON [facility] [address] [place] [address], [facility] DTL [facility] [address] [place] [address] * (ABNORMAL) SPSMA Result (07/02/2023 7:08 AM PAPER CUP HANDLE MACHINE OPERATOR) Neutrophilic Segs and Bands 59 50 - 75 % 07/02/2023 10:35 AM PAPER CUP HANDLE MACHINE OPERATOR DHPM Lymphocytes 12(L) 18 - 42 % 07/02/2023 10:35 AM PAPER CUP HANDLE MACHINE OPERATOR DHPM Monocytes 13(H) 2 - 11 % 07/02/2023 10:35 AM PAPER CUP HANDLE MACHINE OPERATOR DHPM Eosinophils 1 1 - 3 % 07/02/2023 10:35 AM PAPER CUP HANDLE MACHINE OPERATOR DHPM Metamyelocytes 5(H) <1 % 07/02/2023 10:35 AM PAPER CUP HANDLE MACHINE OPERATOR DHPM Myelocytes 10(H) <0.5 % 07/02/2023 10:35 AM PAPER CUP HANDLE MACHINE OPERATOR DHPM Megakaryocytes 3(H) <1 /100 WBC 07/02/2023 10:35 AM PAPER CUP HANDLE MACHINE OPERATOR DHPM Nucleated RBC 183 /100 WBC 07/02/2023 10:35 AM PAPER CUP HANDLE MACHINE OPERATOR DHPM Manual Absolute Neutrophil Count 12.21(H) 1.56 - 6.45 x10(9)/L 07/02/2023 10:36 AM PAPER CUP HANDLE MACHINE OPERATOR DHPM Comment: REVISED RESULTS ----ADDITIONAL INFORMATION---- The manual absolute neutrophil count is derived from a manual differential count and therefore is not exactly comparable to the automated absolute neutrophil count. ----PREVIOUSLY REPORTED ---- 16.34, Flagged as: Abnormal_High (Reported 07/02/2023 10:35) Interpretation See Comment 10:35 AM PAPER CUP HANDLE MACHINE OPERATOR DHPM Comment:No increase in dacro cytes is seen. Reviewed by: Liz 07/02/2023 10:35 AM PAPER CUP HANDLE MACHINE OPERATOR DHPM Blood (Blood, Venous) 07/02/2023 7:08 AM PAPER CUP HANDLE MACHINE OPERATOR 07/02/2023 7:32 AM PAPER CUP HANDLE MACHINE OPERATOR Janusz Ardon LAB BLOOD ADD-ON [facility] [address] [place] [address], [facility] [address] [place] [address] * (ABNORMAL) CBC with Differential, Blood (07/02/2023 7:08 AM PAPER CUP HANDLE MACHINE OPERATOR) Hemoglobin 8.0(L) 11.6 - 15.0 g/dL 07/02/2023 8:08 AM PAPER CUP HANDLE MACHINE OPERATOR DTL Hematocrit 26.5(L) 35.5 - 44.9 % 07/02/2023 8:08 AM PAPER CUP HANDLE MACHINE OPERATOR DTL Erythrocytes 2.80(L) 3.92 - 5.13 x10(12)/L 07/02/2023 8:08 AM PAPER CUP HANDLE MACHINE OPERATOR DTL MCV 94.6 78.2 - 97.9 fL 07/02/2023 8:08 AM PAPER CUP HANDLE MACHINE OPERATOR DTL RBC Distrib Width 26.9(H) 12.2 - 16.1 % 07/02/2023 10:35 AM PAPER CUP HANDLE MACHINE OPERATOR DTL Platelet Count 940(H) 157 - 371 x10(9)/L 07/02/2023 8:08 AM PAPER CUP HANDLE MACHINE OPERATOR DTL Leukocytes 20.7(H) 3.4 - 9.6 x10(9)/L 07/02/2023 10:36 AM PAPER CUP HANDLE MACHINE OPERATOR DHPM Comment: REVISED RESULTS Corrected for normoblasts. ----PREVIOUSLY REPORTED ---- 27.7, Flagged as: Abnormal_High (Reported 07/02/2023 10:35) Neutrophils See Comment 1.56 - 6.45 x10(9)/L 07/02/2023 10:35 AM PAPER CUP HANDLE MACHINE OPERATOR DHPM Comment:Auto-diff results no t valid. See manual differential. Blood (Blood, Venous) 07/02/2023 7:08 AM PAPER CUP HANDLE MACHINE OPERATOR 07/02/2023 7:32 AM PAPER CUP HANDLE MACHINE OPERATOR Janusz Ardon LAB BLOOD ADD-ON [facility] [address] [place] [address], [facility] DTL [facility] [address] [place] [address] DHPM [facility] [address] [place] [address] documented in this encounter Visit Diagnoses Diagnosis Myelofibrosis Primary (HCC)- Primary documented in this encounter Additional Health Concerns Infection Onset Date Last Indicated Resolved Time Protective Environment 01/22/2023 01/22/2023 documented as of this encounter Care Teams Mri Technician Relationship Specialty Start Date End Date Elsewhere, Pcp PCP - General 11/04/21 documented as of this encounter
--- OUTSIDE RECORDS SUMMARY | 2023-08-21 10:24 | XMS_ITS | Encounter Summary ---
Author Name Unknown Organization [facility] Address [address] [place] [address] Care Team Providers Care Kohinoor Operator Name Role Phone Elsewhere, Pcp Primary Care Provider Unavailabl e Reason for Visit * Reason Onset Date Comments External Lab Entry 04/10/2023 Encounter Details Date Type Department Care Team (Latest Contact Info) Description 04/10/2023 Clinical Communication Division of Hematology in [place], [place] [address] [place] [phone] Janusz Govea M.B.B.S. [address] [place] [phone] External Lab Entry Social History Tobacco Use [...] Sex Assigned at Female 07/24/2021 11:03 AM ENERGY SALES CONSULTANT Gender Identity Female 07/24/2021 11:03 AM ENERGY SALES CONSULTANT Sexual Orientation Straight 07/24/2021 11 :03 AM ENERGY SALES CONSULTANT documented as of this encounter Miscellaneous Notes * Telephone Encounter - Jennifer Peralta - 04/10/2023 12:02 PM CDT Outside labs collected on 04/10/2023 have been received. The fax has been scanned into the patient record via [employer], and the CBC results are as noted below. Hemoglobin: 7.1 Hematocrit: 24.3 WBC: 74.95 ANC: 11.40 Platelets: 1062.0 Please note: Are there additional labs reported on the outside report? No documented in this encounter Plan of Treatment Not on file documented as of this encounter Visit Diagnoses Not on filedocumented in this encounter Additional Health Concerns Infection Onset Date Last Indicated Resolved Time Protective Environment 01/22/2023 01/22/2023 documented as of this encounter Care Teams Kohinoor Operator Relationship Specialty Start Date End Date Elsewhere, Pcp PCP - General 11/04/21 documented as of this encounter
--- OUTSIDE RECORDS SUMMARY | 2023-08-21 10:24 | XMS_ITS | Encounter Summary ---
Author Name Unknown Organization [facility] Address [address] [place] [address] Care Team Providers Care Shrimper Name Role Phone Elsewhere, Pcp Primary Care Provider Unavailabl e Reason for Visit * Reason Onset Date Comments External Lab Entry 04/18/2023 Encounter Details Date Type Department Care Team (Latest Contact Info) Description 04/18/2023 Clinical Communication Division of Hematology in [place], [place] [address] [place] [phone] Janusz Govea M.B.B.S. [address] [place] [phone] External Lab Entry Social History Tobacco Use [...] Sex Assigned at Female 07/24/2021 11:03 AM AUTOMOBILE REPAIR SERVICE ESTIMATOR Gender Identity Female 07/24/2021 11:03 AM AUTOMOBILE REPAIR SERVICE ESTIMATOR Sexual Orientation Straight 07/24/2021 11 :03 AM AUTOMOBILE REPAIR SERVICE ESTIMATOR documented as of this encounter Miscellaneous Notes * Telephone Encounter - Dena Junior R.N. - 04/18/2023 12:34 PM CDT Diagnosis: Myelofibrosis Current Therapy: Hydrea 500 mg twice daily Current Lab Monitoring: as directed Any recommendations/ changes to the plan of care? Thank you, Dena NARAYAN * Telephone Encounter - Leann Marroquin - 04/18/2023 12:28 PM CDT Outside labs collected on 04/18/2023 have been received. The fax has been scanned into the patient record via [employer], and the CBC results are as noted below. Hemoglobin: 8.2 Hematocrit: 28.0 WBC: 58.92 ANC: 14.70 Platelets: 1132 Please note: Are there additional labs reported on the outside report? No documented in this encounter Plan of Treatment Not on file documented as of this encounter Visit Diagnoses Not on filedocumented in this encounter Additional Health Concerns Infection Onset Date Last Indicated Resolved Time Protective Environment 01/22/2023 01/22/2023 documented as of this encounter Care Teams Shrimper Relationship Specialty Start Date End Date Elsewhere, Pcp PCP - General 11/04/21 documented as of this encounter
--- OUTSIDE RECORDS SUMMARY | 2023-08-21 10:24 | XMS_ITS | Encounter Summary ---
Author Name Unknown Organization [facility] Address [address] [place] [address] Care Team Providers Care Account Coordinator Name Role Phone Elsewhere, Pcp Primary Care Provider Unavailabl e Reason for Visit * Reason Onset Date Comments External Lab Entry 02/20/2023 Encounter Details Date Type Department Care Team (Latest Contact Info) Description 02/20/2023 Clinical Communication Division of Hematology in [place], [place] [address] [place] [phone] Janusz Govea M.B.BZahraaS. [address] [place] [phone] External Lab Entry Social History Tobacco Use [...] Assigned at Female 07/24/2021 11:03 AM CHIEF RISK OFFICER Gender Identity Female 07/24/2021 11:03 AM CHIEF RISK OFFICER Sexual Orientation Straight 07/24/2021 11 :03 AM CHIEF RISK OFFICER documented as of this encounter Miscellaneous Notes * Telephone Encounter - Jocelyne Lang - 02/20/2023 11:37 AM CDT Outside labs collected on 02/20/2023 have been received. The fax has been scanned into the patient record via [employer], and the CBC results are as noted below. Hemoglobin: 6.9 Hematocrit: 24.5 WBC: 22.38 ANC: 9.1 Platelets: 1304 Please note: Are there additional labs reported on the outside report? No documented in this encounter Plan of Treatment Not on file documented as of this encounter Visit Diagnoses Not on filedocumented in this encounter Additional Health Concerns Infection Onset Date Last Indicated Resolved Time Protective Environment 01/22/2023 01/22/2023 documented as of this encounter Care Teams Account Coordinator Relationship Specialty Start Date End Date Elsewhere, Pcp PCP - General 11/04/21 documented as of this encounter
--- OUTSIDE RECORDS SUMMARY | 2023-08-21 10:24 | XMS_ITS | Encounter Summary ---
Author Name Unknown Organization [facility] Address [address] [place] [address] Care Team Providers Care Coverstitch Elastic Attacher Name Role Phone Elsewhere, Pcp Primary Care Provider Unavailabl e Reason for Visit * Reason Onset Date Comments External Lab Entry 02/26/2023 Encounter Details Date Type Department Care Team (Latest Contact Info) Description 02/26/2023 Clinical Communication Division of Hematology in [place], [place] [address] [place] [phone] Janusz Govea M.B.BZahraaS. [address] [place] [phone] External Lab Entry Social History Tobacco Use [...] Sex Assigned at Female 07/24/2021 11:03 AM COMMERCIAL LINES INSURANCE AGENT Gender Identity Female 07/24/2021 11:03 AM COMMERCIAL LINES INSURANCE AGENT Sexual Orientation Straight 07/24/2021 11 :03 AM COMMERCIAL LINES INSURANCE AGENT documented as of this encounter Miscellaneous Notes * Telephone Encounter - Jocelyne Lang - 02/26/2023 12:10 PM CDT Outside labs collected on 02/26/2023 have been received. The fax has been scanned into the patient record via [email or web address], and the CBC results are as noted below. Hemoglobin: 7.8 Hematocrit: 27.0 WBC: 81.82 ANC: 23.4 Platelets: 1047 Please note: Are there additional labs reported on the outside report? No documented in this encounter Plan of Treatment Not on file documented as of this encounter Visit Diagnoses Not on filedocumented in this encounter Additional Health Concerns Infection Onset Date Last Indicated Resolved Time Protective Environment 01/22/2023 01/22/2023 documented as of this encounter Care Teams Coverstitch Elastic Attacher Relationship Specialty Start Date End Date Elsewhere, Pcp PCP - General 11/04/21 documented as of this encounter
--- OUTSIDE RECORDS SUMMARY | 2023-08-21 10:24 | XMS_ITS | Encounter Summary ---
Author Name Unknown Organization [facility] Address [address] [place] [address] Care Team Providers Care Equipment Service Technician Name Role Phone Elsewhere, Pcp Primary Care Provider Unavailabl e Reason for Visit * Reason Onset Date Comments Symptoms 04/11/2023 Encounter Details Date Type Department Care Team ([facility] st Contact Info) Description 04/11/2023 Clinical Communication Division of Hematology in [place], [place] [address] [place] [phone] Janusz Govea M.B.B.S. [address] [place] [phone] Symptoms Social History Tobacco Use Types Packs/Day Years [...] Sex Assigned at Female 07/24/2021 11:03 AM DINING ROOM MAID Gender Identity Female 07/24/2021 11:03 AM DINING ROOM MAID Sexual Orientation Straight 07/24/2021 11 :03 AM DINING ROOM MAID documented as of this encounter Miscellaneous Notes * Telephone Encounter - Kamla Patel R.N. - 04/11/2023 2:15 PM CDT Gian calls to let us know that there have been some changes with Jennifer's symptoms. He is ultimately calling ot see if they can get an appt with Dr. Govea. I did share that it looks like the requestis for 04/30. They would like to move this up if at all possible. Some of the changes that Jennifer has been having: a lot of ankle/feet swelling. She takes Torsemide and that is not even helping with the swelling. She's been trying to be seated more frequently so that she doesn't have trouble with the swelling. When she is up and walking around, she notes that her feet hurt worse. 2. Jennifer's toes are feeling tingly - like she is having circulation issues. I did ask if they were cool to the touch. He tells me he's been trying to message them for her, and they don't feel hot butthey may be a little cool 3. He proceeds to tell me that Jennifer had sharp pains when she had her spleen in. With the removal of her spleen, that went away. She is now having similar sharp pains on the right side of her abdomen/stomach area. He mentions that Dr. Govea had said her liver was a little bigger than it should be,however they are wondering if she is having the pain because the liver is increasing in size? 4. Gian also tells me that Jennifer is having trouble with tightening in the chest, when she eats. 5. She seems to be getting food stuck in her throat a lot more. Like it's sticky and hard to swallow. 6. Jennifer is coughing a lot and coughing up phlegm balls that are clear in color. This is happening a lot per Gian about 5-10x/day when sits down. 7. She is also feeling short of breath quite frequently. She can't catch her breath and feels winded. 8. Feeling really weak the last couple of weeks in her hands, but her whole body is weak. 9. Headaches- taking a lot of Tylenol and do not really resolve. Some are really bad she is almost crying. Has more headaches than she doesn't. Currently getting blood -no headache at this time. 10. Blood every 10-14 days- Jennifer is requiring more blood products. 11. Throwing up 3x/week for the last 2 weeks. Feels sick when she eats every time. 12. Diarrhea this has been ongoing for the last 3-4 days. 13. In her Right eye, she saw a little spider that she could not see past. During that time, her gait was quite unsteady. She often lost her balance. The little spider has almost resolved from her vision, however she still looses her balance. The nurses where she is at think it could have been a stroke or ominous of her having a stroke? Gian says the past two weeks have been the worse. Jennifer is feeling like it's nearing the end andshe's very stressed about it. She feel likes something is happening with all the pains and she doesn't feel well at all. I let Gian know that I would reach out to Dr. Govea and let him know what her recommendations were. Dr. Govea recommended ED in [facility] with Admission. I called [facility] and spoke with Leticia. They are expecting her. documented in this encounter Plan of Treatment Not on file documented as of this encounter Visit Diagnoses Not on filedocumented in this encounter Additional Health Concerns Infection Onset Date Last Indicated Resolved Time Protective Environment 01/22/2023 01/22/2023 documented as of this encounter Care Teams Equipment Service Technician Relationship Specialty Start Date End Date Elsewhere, Pcp PCP - General 11/04/21 documented as of this encounter
--- OUTSIDE RECORDS SUMMARY | 2023-08-21 10:24 | XMS_ITS | Encounter Summary ---
Author Name Unknown Organization [facility] Address [address] [place] [address] Care Team Providers Care Shaper Hand Name Role Phone Elsewhere, Pcp Primary Care Provider Unavailabl e Reason for Visit * Reason Onset Date Comments External Lab Entry 03/31/2023 Encounter Details Date Type Department Care Team (Latest Contact Info) Description 03/31/2023 Clinical Communication Division of Hematology in [place], [place] [address] [place] [phone] Janusz Govea M.B.BZahraaS. [address] [place] [phone] External Lab Entry Social History Tobacco Use [...] Sex Assigned at Female 07/24/2021 11:03 AM FRIT BURNER Gender Identity Female 07/24/2021 11:03 AM FRIT BURNER Sexual Orientation Straight 07/24/2021 11 :03 AM FRIT BURNER documented as of this encounter Miscellaneous Notes * Telephone Encounter - Jocelyne Lang - 03/31/2023 1:24 PM CDT Outside labs collected on 03/31/2023 have been received. The fax has been scanned into the patient record via [employer], and the CBC results are as noted below. Hemoglobin: 8.3 Hematocrit: 28.5 WBC: 22.13 double check. CWBC:22.13/WBC:81.45 ANC: 15.3 Platelets: 1131 Please note: Are there additional labs reported on the outside report? No documented in this encounter Plan of Treatment Not on file documented as of this encounter Visit Diagnoses Not on filedocumented in this encounter Additional Health Concerns Infection Onset Date Last Indicated Resolved Time Protective Environment 01/22/2023 01/22/2023 documented as of this encounter Care Teams Shaper Hand Relationship Specialty Start Date End Date Elsewhere, Pcp PCP - General 11/04/21 documented as of this encounter
--- OUTSIDE RECORDS SUMMARY | 2023-08-21 10:24 | XMS_ITS | Encounter Summary ---
Author Name Unknown Organization [facility] Address [address] [place] [address] Care Team Providers Care Waitangi Tribunal Member Name Role Phone Elsewhere, Pcp Primary Care Provider Unavailabl e Reason for Visit * Reason Onset Date Comments External Lab Entry 02/10/2023 Encounter Details Date Type Department Care Team (Latest Contact Info) Description 02/10/2023 Clinical Communication Division of Hematology in [place], [place] [address] [place] [phone] Janusz Govea M.B.BZahraaS. [address] [place] [phone] External Lab Entry Social History Tobacco Use [...] Sex Assigned at Female 07/24/2021 11:03 AM BI APPLICATION DEVELOPER Gender Identity Female 07/24/2021 11:03 AM BI APPLICATION DEVELOPER Sexual Orientation Straight 07/24/2021 11 :03 AM BI APPLICATION DEVELOPER documented as of this encounter Miscellaneous Notes * Telephone Encounter - Jocelyne Lang - 02/10/2023 11:57 AM CDT Outside labs collected on 02/10/2023 have been received. The fax has been scanned into the patient record via [employer], and the CBC results are as noted below. Hemoglobin: 7.7 Hematocrit: 26.9 WBC: 41.66 Platelets: 1168 Please note: Are there additional labs reported on the outside report? No documented in this encounter Plan of Treatment Not on file documented as of this encounter Visit Diagnoses Not on filedocumented in this encounter Additional Health Concerns Infection Onset Date Last Indicated Resolved Time Protective Environment 01/22/2023 01/22/2023 documented as of this encounter Care Teams Wait[place] Tribunal Member Relationship Specialty Start Date End Date Elsewhere, Pcp PCP - General 11/04/21 documented as of this encounter
--- OUTSIDE RECORDS SUMMARY | 2023-08-21 10:24 | XMS_ITS | Encounter Summary ---
Author Name Unknown Organization [facility] Address [address] [place] [address] Care Team Providers Care Team Automobile Assembler Name Role Phone Elsewhere, Pcp Primary Care Provider Unavailabl e Reason for Visit * Reason Onset Date Comments Lab Monitoring 03/06/2023 Encounter Details Date Type Department Care Team (Latest Contact Info) Description 03/06/2023 Clinical Communication Division of Hematology in [place], [place] [address] [place] [phone] Janusz Govea M.B.B.S. [address] [place] [phone] Lab Monitoring Social History Tobacco Use Types Packs/Day Years [...] Sex Assigned at Female 07/24/2021 11:03 AM WATER TECHNICIAN Gender Identity Female 07/24/2021 11:03 AM WATER TECHNICIAN Sexual Orientation Straight 07/24/2021 11 :03 AM WATER TECHNICIAN documented as of this encounter Miscellaneous Notes * Telephone Encounter - Prabha Lomas R.N. - 03/06/2023 2:52 PM CDT Diagnosis: Myelofibrosis Current Therapy: Hydrea 500 mg BID Current Lab Monitoring: As directed Current Lab Values: Latest Reference Range & Units 03/06/23 00:00 EXT Hemoglobin 12 - 16 7.7 ! (E) EXT Hematocrit 33 - 51 27.3 ! (E) EXT MCV 80 - 100 100 (E) EXT Platelet Count 140 - 440 1,200 ! (E) EXT WBC 4.5 - 11 32.66 ! (E) EXT Absolute Neutrophil Count 1.7 - 7 11.4 ! (E) Please advise if any changes / recommendations? * Telephone Encounter - Leann Marroquin - 03/06/2023 1:00 PM CDT Outside labs collected on 03/06/2023 have been received. The fax has been scanned into the patient record via [employer], and the CBC results are as noted below. Hemoglobin: 7.7 Hematocrit: 27.3 WBC: 32.66 ANC: 11.40 Platelets: 1200 Please note: Are there additional labs reported on the outside report? No documented in this encounter Plan of Treatment Not on file documented as of this encounter Procedures Procedure Name Priority Date/Time Associated Diagnosis Comments EXTP COMPLETE BLOOD COUNT, BLOOD Routine 03/06/2023 documented in this encounter Results * (ABNORMAL) EXT Complete Blood Count, Blood (03/06/2023) EXT Hemoglobin 7.7(A) 12 - 16 SCANN ED REPORT EXT Hematocrit 27.3(A) 33 - 51 SCANN ED REPORT EXT MCV 100 80 - 100 SCANNED REPORT EXT Leukocytes 32.66(A) 4.5 - 11 SCANN ED REPORT EXT Platelet Count 1,200(A) 140 - 440 SCANNED REPORT EXT Absolute Neutrophil Count 11.4(A) 1.7 - 7 SCANNED REPORT Blood (Blood, Venous) 03/06/2023 Historical Provider LAB BLOOD NON ADD-ON SCANNED REPORT documented in this encounter Visit Diagnoses Not on filedocumented in this encounter Additional Health Concerns Infection Onset Date Last Indicated Resolved Time Protective Environment 01/22/2023 01/22/2023 documented as of this encounter Care Teams Team Automobile Assembler Relationship Specialty Start Date End Date Elsewhere, Pcp PCP - General 11/04/21 documented as of this encounter
--- OUTSIDE RECORDS SUMMARY | 2023-08-21 10:24 | XMS_ITS | Encounter Summary ---
Author Name Unknown Organization [facility] Address [address] [place] [address] Care Team Providers Care Baked And Graphite Inspector Name Role Phone Elsewhere, Pcp Primary Care Provider Unavailabl e Reason for Visit * Reason Onset Date Comments New symptoms from medication 02/14/2023 Encounter Details Date Type Department Care Team (Latest Contact Info) Description 02/14/2023 Clinical Communication Division of Hematology in [place], [place] [address] [place] [phone] Janusz Govea M.B.B.S. [address] [place] [phone] New symptoms from medication Social History Tobacco Use Types Packs/Day Years [...] Sex Assigned at Female 07/24/2021 11:03 AM GRAIN ELEVATOR MOTOR STARTER Gender Identity Female 07/24/2021 11:03 AM GRAIN ELEVATOR MOTOR STARTER Sexual Orientation Straight 07/24/2021 11 :03 AM GRAIN ELEVATOR MOTOR STARTER documented as of this encounter Plan of Treatment Not on file documented as of this encounter Visit Diagnoses Not on filedocumented in this encounter Additional Health Concerns Infection Onset Date Last Indicated Resolved Time Protective Environment 01/22/2023 01/22/2023 documented as of this encounter Care Teams Baked And Graphite Inspector Relationship Specialty Start Date End Date Elsewhere, Pcp PCP - General 11/04/21 documented as of this encounter
--- OUTSIDE RECORDS SUMMARY | 2023-08-21 10:25 | XMS_ITS | Encounter Summary ---
Author Name Unknown Organization [facility] Address [address] [place] [address] Care Team Providers Care Park Maintainer Name Role Phone Elsewhere, Pcp Primary Care Provider Unavailabl e Reason for Visit * Reason Onset Date Comments External Lab Entry 01/15/2023 Encounter Details Date Type Department Care Team (Latest Contact Info) Description 01/15/2023 Clinical Communication Division of Hematology in [place], [place] [address] [place] [phone] Janusz Govea M.B.B.S. [address] [place] [phone] External Lab Entry Social History Tobacco Use [...] Sex Assigned at Female 07/24/2021 11:03 AM CHECK VIEWER Gender Identity Female 07/24/2021 11:03 AM CHECK VIEWER Sexual Orientation Straight 07/24/2021 11 :03 AM CHECK VIEWER documented as of this encounter Miscellaneous Notes * Addendum Note - Mayank Galindo R.N. - 01/22/2023 11:38 AM CDTAddended by: MAYANK GALINDO on: 01/22/2023 11:38 AM Modules accepted: Orders * Addendum Note - Nuvia Rodriguez R.N. - 01/20/2023 3:15 PM CDTAddended by: NUVIA RODRIGUEZ on: 01/20/2023 03:15 PM Modules accepted: Orders * Telephone Encounter - Jocelyne Lang - 01/15/2023 3:45 PM CDT Outside labs collected on 01/15/2023 have been received. The fax has been scanned into the patient record via [employer], and the CBC results are as noted below. Hemoglobin: 7.5 Hematocrit: 25.6 WBC: 73.41 ANC: 13.1 Platelets: 1184 Please note: Are there additional labs reported on the outside report? No documented in this encounter Plan of Treatment Not on file documented as of this encounter Results * Type and Screen (with Reflex Antibody ID) (01/22/2023 8:04 AM CDT) [facility] A Pos Not applicable 01/22/2023 9:14 AM CDT ETRM Antibody Screen Negative Negative 01/22/2023 9:30 AM CDT ETRM Type & Screen Expiration 01/25/2023 23:59 01/22/2023 9:14 AM CDT ETRM Testing Location [facility] DEFAULT 01/22/2023 8:48 AM CDT ETRM Blood (Blood, Venous) 01/22/2023 8:04 AM CDT 01/22/2023 8:48 AM CDT Naseema Gangat M.B.B.S. LAB BLOOD BANK T EST ORDERABLES [facility] [address] [place] [address], [place] ETRM [facility] [address] [place] [address] documented in this encounter Visit Diagnoses Diagnosis Myelofibrosis Primary (HCC)- Primary documented in this encounter Care Teams Park Maintainer Relationship Specialty Start Date End Date Elsewhere, Pcp PCP - General 11/04/21 documented as of this encounter
--- OUTSIDE RECORDS SUMMARY | 2023-08-21 10:25 | XMS_ITS | Encounter Summary ---
Author Name Unknown Organization [facility] Address [address] [place] [address] Care Team Providers Care Film Casting Operator Name Role Phone Elsewhere, Pcp Primary Care Provider Unavailabl e Encounter Details Date Type Department Care Team (Latest Contact Info) Description 01/22/2023 11:48 AM CDT - 01/22/2023 11:59 PM CDT Hospital Encounter Department of Laboratory Medicine and Pathology, [facility] in [place], [place] [address] [place] [phone] Janusz Govea M.B.B.S. [address] [place] [phone] Myelofibrosis Primary (HCC) Discharge Disposition: Home or [...] Sex Assigned at Female 07/24/2021 11:03 AM CATTLE EXAMINER Gender Identity Female 07/24/2021 11:03 AM CATTLE EXAMINER Sexual Orientation Straight 07/24/2021 11 :03 AM CATTLE EXAMINER documented as of this encounter Medications at Time of Discharge Medication Sig Dispensed Refills Start Date End Date acetaminophen (TYLENOL) 500 mg tablet Take 2 tablets (1,000 mg total) by mouth every 6 (six) hours as needed for pain (Do not exceed 4000mg/day.). 0 03/18/2022 buPROPion XL (WELLBUTRIN XL) 150 mg 24 [...] by mouth daily. 30 tablet 3 01/22/2023 LORazepam (ATIVAN) 0.5 mg tablet Take 1-2 mg by mouth at bedtime as needed for anxiety or sleep. 0 morphine (MS CONTIN) 15 mg ER tablet [...] because they are new for her. 0 allopurinoL (ZYLOPRIM) 300 mg tablet TAKE 1 TABLET BY MOUTH DAILY 90 tablet 3 05/06/2022 05/23/2023 hydroxyurea (HYDREA) 500 mg capsule Take 1 capsule (500 mg total) by mouth 2 (two) times a day. Take at the same time each day. 180 capsule 1 11/15/2022 05/23/2023 pacritinib (VONJO) 100 mg capsule Take 1 capsule (100 mg total) by mouth 2 (two) times a day. 60 capsule 3 01/22/2023 07/24/2023 documented as of this encounter Plan of Treatment Not on file documented as of this encounter Procedures Procedure Name Priority Date/Time Associated Diagnosis Comments VA T4 FREE Routine 01/22/2023 12:08 PM CDT THYROID FUNCTION CASCADE, S Routine 01/22/2023 12:08 PM CDT Myelofibrosis Primary (HCC) THYROPEROXIDASE (TPO) ABS, S Routine 01/22/2023 12:08 PM CDT RHEUMATOID FACTOR, S/P Routine 12:08 PM CDT Myelofibrosis Primary (HCC) C-REACTIVE PROTEIN (CRP), S/P Routine 01/22/2023 12:08 PM CDT Myelofibrosis Primary (HCC) ANTINUCLEAR ABS (SHADY), S Routine 01/22/2023 12:08 PM CDT Myelofibrosis Primary (HCC) LIPASE, S/P Routine 01/22/2023 12:08 PM CDT Myelofibrosis Primary (HCC) AMYLASE, TOT, S Routine 01/22/2023 12:08 PM CDT Myelofibrosis Primary (HCC) CYTOKINE PANEL Routine 01/22/2023 12:07 PM CDT Myelofibrosis Primary (HCC) documented in this encounter Results * T4 (Thyroxine), Free, Serum (01/22/2023 12:08 PM CDT) Pathologist [facility] T4 (Thyroxine), Free, S 1.4 0.9 - 1.7 ng/dL 01/22/2023 2:49 PM CDT DTL Blood 01/22/2023 12:0 8 PM CDT 01/22/2023 12:52 PM CDT Janusz ArringtonB.S. LAB BLOOD ADD-ON Performing Organization Address City/[facility]/ZIP Co de Phone Number [facility] 200 [place] [address], [place] [address] * Thyroperoxidase (TPO) Antibodies (01/22/2023 12:08 PM CDT) [facility] Thyroperoxidase Ab, S <15.0 <34.0 IU/mL 01/22/2023 2:49 PM CDT DTL Blood 01/22/2023 12:0 8 PM CDT 01/22/2023 12:52 PM CDT Janusz Higgins.B.S. LAB BLOOD ADD-ON Performing Organization Address City/[facility]/ZIP Co de Phone Number [facility] 200 [place] [address], [place] [address] * Lipase (01/22/2023 12:08 PM CDT) Pathologist [facility] Lipase, S 48 13 - 60 U/L 01/22/2023 1: 30 PM CDT DTL Blood (Blood, Venous) 01/22/2023 12:08 PM CDT 01/22/2023 12:52 PM CDT Naseewilman AlexandraSZahraa LAB BLOOD ADD-ON Performing Organization Address City/[facility]/ZIP Co de Phone Number [facility] [address] [place], [place] [phone] [place] [address] * Amylase, Total (01/22/2023 12:08 PM CDT) Amylase, Total, S 68 28 - 100 U/L 01/22/2023 1:30 PM CDT DTL Blood (Blood, Venous) 01/22/2023 12:08 PM CDT 01/22/2023 12:52 PM CDT Janusz AlexandraSZahraa LAB BLOOD ADD-ON Performing Organization Address City/[facility]/ZIP Co de Phone Number [facility] 200 [place], [place] [phone] [address] * (ABNORMAL) Thyroid Function [place] (01/22/2023 12:08 PM CDT) Pathologist [facility] TSH, Sensitive 5.8(H) 0.3 - 4.2 mIU/L 01/22/2023 2:29 PM CDT DTL Blood (Blood, Venous) 01/22/2023 12:08 PM CDT 01/22/2023 12:52 PM CDT Janusz AlexandraSZahraa LAB BLOOD ADD-ON Performing Organization Address City/[facility]/ZIP Co de Phone Number [facility] 200 [place] [address], [address] [address] * (ABNORMAL) CRP (C-Reactive Protein) (01/22/2023 12:08 PM CDT) C-Reactive Protein (CRP), S 21.1(H) <5.0 mg/L 01/22/2023 1:30 PM CDT DTL Blood (Blood, Venous) 01/22/2023 12:08 PM CDT 01/22/2023 12:52 PM CDT Janusz ArringtonB.S. LAB BLOOD ADD-ON Performing Organization Address City/[facility]/ZIP Co de Phone Number [facility] [address] [place] [address], [facility] [address] [place] [address] * Rheumatoid Factor (01/22/2023 12:08 PM CDT) Rheumatoid Factor, S <15 <15 IU/mL 01/22/2023 7:[address] [facility] Blood (Blood, Venous) 01/22/2023 12:08 PM CDT 01/22/2023 4:20 PM CDT Janusz ArringtonB.S. LAB BLOOD ADD-ON Performing Organization Address [facility] Co de Phone Number [facility] [address] [place] [address] [facility] [address] [place] [address] * SHADY (Antinuclear Antibodies) (01/22/2023 12:08 PM CDT) Antinuclear Ab, S 0.2 <=1.0 (Negative) U 01/23/2023 11:[address] [facility] Comment: ----ADDITIONAL INFORMATION---- Method: Enzyme-linked immunoassay using HEp-2 nuclear extract supplemented with purified antigens. Blood (Blood, Venous) 01/22/2023 12:08 PM CDT 01/22/2023 4:28 PM CDT Janusz ArringtonB.S. LAB BLOOD ADD-ON Performing Organization Address City/[facility]/ZIP Co de Phone Number [facility] [address] [place] [address] [facility] [address] [place] [address] * (ABNORMAL) Cytokine Panel (01/22/2023 12:07 PM CDT) [facility] TNF 21.4(H) <10.0 pg/mL 01/23/2023 2:37 PM CDT [facility] IL-6 5.9(H) <5.0 pg/mL 01/23/2023 2:37 PM CDT [facility] IFN-beta <20.0 <20.0 pg/mL 01/23/2023 2:37 PM CDT [facility] IL-10 <7.0 <7.0 pg/mL 01/23/2023 2:37 PM CDT [facility] MCP-1 231(H) <=198 pg/mL 01/23/2023 2:37 PM CDT [facility] IL-1 beta <20.0 <20.0 pg/mL 01/23/2023 2:37 PM CDT [facility] IFN-gamma <60.0 <60.0 pg/mL 01/23/2023 2:37 PM CDT [facility] MIP-1 alpha <220.0 <220 pg/mL 01/23/2023 2:37 PM CDT [facility] GM-CSF <15.0 <15.0 pg/mL 01/23/2023 2:37 PM CDT [facility] IL-2 receptor alpha soluble 1404(H) <=959 pg/mL 01/23/2023 2:37 PM CDT [facility] IFN-alpha <20.0 <20.0 pg/mL 01/23/2023 2:37 PM CDT [facility] IL-18 396 <=468 pg/mL 01/23/2023 2:37 PM CDT [facility] Comment: ----ADDITIONAL INFORMATION---- This test was developed and its performance characteristics determined by [facility] in a manner consistent with CLIA requirements. This test has not been cleared or approved by the U.S. Food and Drug Administration. Blood (Blood, Venous) 01/22/2023 12:07 PM CDT 01/23/2023 8:12 AM CDT Naseema Gangat M.B.B.S. LAB BLOOD NON AD D-ON [facility] [address] [place] [address] [facility] [address] [place] [address] [place] [phone] documented in this encounter Visit Diagnoses Diagnosis Myelofibrosis Primary (HCC) documented in this encounter Additional Health Concerns Infection Onset Date Last Indicated Resolved Time Protective Environment 01/22/2023 01/22/2023 documented as of this encounter Care Teams Film Casting Operator Relationship Specialty Start Date End Date Elsewhere, Pcp PCP - General 11/04/21 documented as of this encounter
--- OUTSIDE RECORDS SUMMARY | 2023-08-21 10:25 | XMS_ITS | Encounter Summary ---
Author Name Unknown Organization [facility] Address [address] [place] [address] Care Team Providers Care Sign Language Instructor Name Role Phone Elsewhere, Pcp Primary Care Provider Unavailabl e Reason for Visit * Reason Onset Date Comments External Lab Entry 12/19/2022 Encounter Details Date Type Department Care Team (Latest Contact Info) Description 12/19/2022 Clinical Communication Division of Hematology in [place], [place] [address] [place] [phone] Janusz Govea M.B.BZahraaS. [address] [place] [phone] External Lab Entry Social History Tobacco Use [...] Sex Assigned at Female 07/24/2021 11:03 AM RESEARCH EPIDEMIOLOGIST Gender Identity Female 07/24/2021 11:03 AM RESEARCH EPIDEMIOLOGIST Sexual Orientation Straight 07/24/2021 11 :03 AM RESEARCH EPIDEMIOLOGIST documented as of this encounter Miscellaneous Notes * Telephone Encounter - Jocelyne Lang - 12/19/2022 12:27 PM CDT Outside labs collected on 12/19/2022 have been received. The fax has been scanned into the patient record via dinCloud, and the CBC results are as noted below. Hemoglobin: 8.0 Hematocrit: 26.7 WBC: 37.68 ANC: 17.1 Platelets: 1086 Please note: Are there additional labs reported on the outside report? No documented in this encounter Plan of Treatment Not on file documented as of this encounter Visit Diagnoses Not on filedocumented in this encounter Care Teams Sign Language Instructor Relationship Specialty Start Date End Date Elsewhere, Pcp PCP - General 11/04/21 documented as of this encounter
--- OUTSIDE RECORDS SUMMARY | 2023-08-21 10:25 | XMS_ITS | Encounter Summary ---
Author Name Unknown Organization [facility] Address [address] [place] [address] Care Team Providers Care Histology Technician Name Role Phone Elsewhere, Pcp Primary Care Provider Unavailabl e Reason for Visit * Reason Onset Date Comments Pre-visit Intake 01/21/2023 Encounter Details Date Type Department Care Team (Latest Contact Info) Description 01/21/2023 11:00 AM CDT Clinical Communication Virtual Review in [place], [place] [address] [place], [place] [phone] Pre-visit Intake Social History Tobacco Use Types [...] Sex Assigned at Female 07/24/2021 11:03 AM AVIATION SURVIVAL TECHNICIAN Gender Identity Female 07/24/2021 11:03 AM AVIATION SURVIVAL TECHNICIAN Sexual Orientation Straight 07/24/2021 11 :03 AM AVIATION SURVIVAL TECHNICIAN documented as of this encounter Plan of Treatment Not on file documented as of this encounter Visit Diagnoses Not on filedocumented in this encounter Care Teams Histology Technician Relationship Specialty Start Date End Date Elsewhere, Pcp PCP - General 11/04/21 documented as of this encounter
--- OUTSIDE RECORDS SUMMARY | 2023-08-21 10:25 | XMS_ITS | Encounter Summary ---
Author Name Unknown Organization [facility] Address [address] [place] [address] Care Team Providers Care Caregivers Non Medical Name Role Phone Elsewhere, Pcp Primary Care Provider Unavailabl e Encounter Details Date Type Department Care Team (Latest Contact Info) Description 12/10/2022 8:52 AM CDT - 12/10/2022 11:59 PM CDT Hospital Encounter Department of Laboratory Medicine and Pathology, [facility] in [place], [place] [address] [place] [phone] Janusz Govea M.B.B.S. [address] [place] [phone] Myelofibrosis Primary (HCC) Discharge Disposition: Home or [...] Sex Assigned at Female 07/24/2021 11:03 AM CHILDHOOD TEACHER Gender Identity Female 07/24/2021 11:03 AM CHILDHOOD TEACHER Sexual Orientation Straight 07/24/2021 11 :03 AM CHILDHOOD TEACHER documented as of this encounter Medications at [...] by mouth once a week. Mondays 0 LORazepam (ATIVAN) 0.5 mg tablet Take 1-2 [...] each day. 180 capsule 1 11/15/2022 05/23/2023 documented as of this encounter Plan of Treatment Not on file documented as of this encounter Procedures Procedure Name Priority Date/Time Associated Diagnosis Comments POTASSIUM, PLASMA Routine 12/10/2022 9:0 8 AM CDT Myelofibrosis Primary (HCC) URIC ACID, S/P Routine 12/10/2022 9:08 AM CDT Myelofibrosis Primary (HCC) documented in this encounter Results * Uric Acid (12/10/2022 9:08 AM CDT) Uric Acid, S 4.9 2.7 - 6.1 mg/dL 12/10/2022 10:18 AM CDT DTL Blood (Blood, Venous) 12/10/2022 9:08 AM CDT 12/10/2022 9:47 AM CDT Janusz ArringtonB.S. LAB BLOOD ADD-ON Performing Organization Address [facility]/State/ZIP Co de Phone Number [facility] [address] [place] [address], [facility] DTFormerly named [facility] [address] [place] [address] * Potassium, Plasma (12/10/2022 9:08 AM CDT) Potassium, P 4.6 3.6 - 5.2 mmol/L 12/10/2022 10:11 AM CDT DTL Blood (Blood, Venous) 12/10/2022 9:08 AM CDT 12/10/2022 9:47 AM CDT Janusz ArringtonB.S. LAB BLOOD ADD-ON [facility] [address] [place] [address], [place] DTL [facility] [address] [place] [address] documented in this encounter Visit Diagnoses Diagnosis Myelofibrosis Primary (HCC) documented in this encounter Care Teams Caregivers Non Medical Relationship Specialty Start Date End Date Elsewhere, Pcp PCP - General 11/04/21 documented as of this encounter
--- OUTSIDE RECORDS SUMMARY | 2023-08-21 10:25 | XMS_ITS | Encounter Summary ---
Author Name Unknown Organization [facility] Address [address] [place] [address] Care Team Providers Care Internet Cafe Manager Name Role Phone Elsewhere, Pcp Primary Care Provider Unavailabl e Reason for Visit * Reason Onset Date Comments External Lab Entry 01/01/2023 Encounter Details Date Type Department Care Team (Latest Contact Info) Description 01/07/2023 Clinical Communication Division of Hematology in [place], [place] [address] [place] [phone] Janusz Govea M.B.BZahraaS. [address] [place] [phone] External Lab Entry Social History Tobacco Use [...] Sex Assigned at Female 07/24/2021 11:03 AM SUPERVISOR CORE SHOP Gender Identity Female 07/24/2021 11:03 AM SUPERVISOR CORE SHOP Sexual Orientation Straight 07/24/2021 11 :03 AM SUPERVISOR CORE SHOP documented as of this encounter Miscellaneous Notes * Telephone Encounter - Leann Marroquin - 01/07/2023 8:14 AM CDT Antibody screen outside labs collected on 01/01/2023 have been received. The fax has been scanned into the patient record via Coquel[employer]. documented in this encounter Plan of Treatment Not on file documented as of this encounter Visit Diagnoses Not on filedocumented in this encounter Care Teams Internet Cafe Manager Relationship Specialty Start Date End Date Elsewhere, Pcp PCP - General 11/04/21 documented as of this encounter
--- OUTSIDE RECORDS SUMMARY | 2023-08-21 10:25 | XMS_ITS | Encounter Summary ---
Author Name Unknown Organization [facility] Address [address] [place] [address] Care Team Providers Care Visitor Service Assistant Name Role Phone Elsewhere, Pcp Primary Care Provider Unavailabl e Reason for Visit * Reason Onset Date Comments External Lab Entry 01/10/2023 Encounter Details Date Type Department Care Team (Latest Contact Info) Description 01/10/2023 Clinical Communication Division of Hematology in [place], [place] [address] [place] [phone] Janusz Govea M.B.B.S. [address] [place] [phone] External Lab Entry Social History Tobacco Use [...] Sex Assigned at Female 07/24/2021 11:03 AM SUSTAINABILITY MANAGER Gender Identity Female 07/24/2021 11:03 AM SUSTAINABILITY MANAGER Sexual Orientation Straight 07/24/2021 11 :03 AM SUSTAINABILITY MANAGER documented as of this encounter Miscellaneous Notes * Telephone Encounter - Prabha Lomas R.N. - 01/10/2023 12:35 PM CDT Diagnosis: CALR and SF3B1 mutated primary myelofibrosis Current Therapy: Hydrea 500 mg BID Current Lab Monitoring: Every 2 weeks Current Lab Values: Latest Reference Range & Units 01/10/23 00:00 EXT Hemoglobin 12 - 16 7.7 ! (E) EXT Hematocrit 33 - 51 26.2 ! (E) EXT MCV 80 - 100 107 ! (E) EXT Platelet Count 140 - 440 1,094 ! (E) EXT WBC 4.5 - 11 59.63 ! (E) EXT Absolute Neutrophil Count 1.7 - 7 16 ! (E) !: Data is abnormal (E): External lab result Please advise if any changes / recommendations? SUBJECTIVE CHIEF COMPLAINT / REASON FOR CALL External Lab Entry Information Discussed Spoke with pt's (auth 03/04/16). Gian stated that pt is not seen by a local cancer doc andearl Govea is her primary. They have just been getting a CBC for some time to see if she needs an infusion for her hgb. Gian said that they would recheck labs on Friday as they suspect she will have dropped by then. 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 PLAN Disposition/Recommendation: recommended continue engagement in self-management activities Information/Education: patient/caller able to teach back Caller agreeable to plan of care: yes The following references were used: nursing clinical judgement * Telephone Encounter - Leann Marroquin - 01/10/2023 12:09 PM CDT Outside labs collected on 01/10/2023 have been received. The fax has been scanned into the patient record via Tansler, and the CBC results are as noted below. Hemoglobin: 7.7 Hematocrit: 26.2 WBC: 59.63 ANC: 16.00 Platelets: 1094 Please note: Are there additional labs reported on the outside report? No documented in this encounter Plan of Treatment Not on file documented as of this encounter Procedures Procedure Name Priority Date/Time Associated Diagnosis Comments EXTP COMPLETE BLOOD COUNT, BLOOD Routine 01/10/2023 documented in this encounter Results * (ABNORMAL) EXT Complete Blood Count, Blood (01/10/2023) EXT Hemoglobin 7.7(A) 12 - 16 SCANN ED REPORT EXT Hematocrit 26.2(A) 33 - 51 SCANN ED REPORT EXT MCV 107(A) 80 - 100 SCANNED REPORT EXT Leukocytes 59.63(A) 4.5 - 11 SCANN ED REPORT EXT Platelet Count 1,094(A) 140 - 440 SCANNED REPORT EXT Absolute Neutrophil Count 16(A) 1.7 - 7 SCANNED REPORT Blood (Blood, Venous) 01/10/2023 Historical Provider LAB BLOOD NON ADD-ON SCANNED REPORT documented in this encounter Visit Diagnoses Not on filedocumented in this encounter Care Teams Visitor Service Assistant Relationship Specialty Start Date End Date Elsewhere, Pcp PCP - General 11/04/21 documented as of this encounter
--- OUTSIDE RECORDS SUMMARY | 2023-08-21 10:25 | XMS_ITS | Encounter Summary ---
Author Name Unknown Organization [facility] Address [address] [place] [address] Care Team Providers Care Surgery Aide Name Role Phone Elsewhere, Pcp Primary Care Provider Unavailabl e Reason for Visit * Outpatient (Routine) - Closed Specialty Diagnoses / Procedures Referred By Contac t Referred To Contact Hematology Oncology Janusz Govea M.B.B.S. [address] [place] [phone] [facility] Referral ID Status Reason Start Date Expiration Date Visits Re quested Visits Authorized [id number] Closed 07/23/2022 07/22/2025 1 1 Encounter Details Date Type Department Care Team (Latest Contact Info) Description 01/22/2023 11:00 AM CDT Office Visit Division of Hematology in [place], [place] [address] [place] [phone] Janusz Govea M.B.B.S. [address] [place] [phone] Myelofibrosis Primary (HCC) (Primary Dx) Social History [...] Sex Assigned at Female 07/24/2021 11:03 AM ENGINEERING 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 Gender Identity Female 07/24/2021 11:03 AM ENGINEERING 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 Sexual Orientation Straight 07/24/2021 11 :03 AM ENGINEERING 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 documented as of this encounter Last Filed Vital Signs Vital Sign Reading Time Taken Comments Blood Pressure 109/59 01/22/2023 10:57 AM CDT Pulse 72 01/22/2023 10:57 AM CDT Temperature 36.4 ??C (97.5 ??F) 01/22/2023 10:57 AM C DT Respiratory Rate - - Oxygen Saturation - - Inhaled Oxygen Concentration - - Weight 102 kg (224 lb 3.3 oz) 01/22/2023 10:57 A M CDT Height 173.5 cm (5' 8.31) 01/22/2023 10:57 AM C DT Body Mass Index 33.78 01/22/2023 10:57 AM CDT documented in this encounter Progress Notes * Janusz Govea M.B.B.S. - 01/22/2023 11:00 AM CDT SUBJECTIVE CHIEF COMPLAINT/REASON FOR VISIT Primary myelofibrosis. HISTORY OF PRESENT ILLNESS Ms. Dobbs is a pleasant 52-year-old lady with primary myelofibrosis here accompanied by her . 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 Her post splenectomy course was uncomplicated. She has required blood transfusions on 3-4 occasionssince the splenectomy. Previously was receiving transfusions on a weekly to twice weekly basis. Shehas thrombocytosis and leukocytosis without increase in circulating blasts. She has been taking Hydrea 500 mg twice daily. She has been on narcotics for the spleen pain and was trying to wean herself off the narcotics but has been experiencing severe pain, particularly she shares that she had generalized pain in her bodyincluding her joints. She has nausea and headaches. She has not been feeling very well and continues to spend most of the time in bed. CURRENT MEDICATIONS Allopurinol 300 mg. Wellbutrin 150 mg. Vitamin B12. Hydrea 500 mg b.i.d. Greg Reynoso. Torsemide 20 mg. OBJECTIVE PHYSICAL EXAMINATION Vital Signs: Height is 173.5. Weight is 102 kg. Blood pressure 102/59 Temperature 36.4. Pulse 72. General: In no acute distress. Abdomen: Soft, nontender. Liver is palpable about 3 cm below the right costal margin. DIAGNOSTICS Laboratory studies reviewed. 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 She continues to have diffuse pain in her joints and bones.Hence, I will obtain an ESR, CRP, cytokine panel, rheumatoid factor, and GEMA to see if there is a rheumatological cause. I suspect it may be related to her underlying primary myelofibrosis. Hence, I have recommended switching treatment to a ELSI inhibitor such as pacritinib. I will start with a lower dose 100 mg b.i.d. and see if she tolerates it from the GI perspective, and we can up-titrate accordingly. I discussed with her that it may also help ameliorate anemia. Hemoglobin is 7.6 g/dL. At this time, she prefers to defer transfusion. #5 Pulmonary hypertension She has been followed by Dr. Mayes. Last visit on 12/10. She continues on diuretic. #[address] head in July was negative. #7 Consideration of allogeneic transplant She is not interested in pursuing a transplant at this time. #8 Hyperuricemia She requested switching the allopurinol. I prescribed Uloric, but it is not covered by insurance. #9 Followup I plan to see her in 3-4 months after she has been on the pacritinib. Addendum: reviewed test results. Reva Foreman CT CT Job ID: [id number] documented in this encounter Plan of Treatment Not on file documented as of this encounter Results * Uric Acid (07/02/2023 7:08 AM ENGINEERING 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) Uric Acid, S 5.3 2.7 - 6.1 mg/dL 07/02/2023 8:59 AM ENGINEERING 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 DTL Blood (Blood, Venous) 07/02/2023 7:08 AM ENGINEERING 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 07/02/2023 7:45 AM ENGINEERING 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 Janusz ArringtonB.S. LAB BLOOD ADD-ON [facility] [address] 200 [place] [address] * Lipase (01/22/2023 12:08 PM CDT) Lipase, S 48 13 - 60 U/L 01/22/2023 1: 30 PM CDT DTL Blood (Blood, Venous) 01/22/2023 12:08 PM CDT 01/22/2023 12:52 PM CDT Janusz ArringtonB.S. LAB BLOOD ADD-ON Performing Organization Address City/[facility] Co de Phone Number [facility] 200 [place] [address], [facility] 200 [place] [address] * Amylase, Total (01/22/2023 12:08 PM CDT) Amylase, Total, S 68 28 - 100 U/L 01/22/2023 1:30 PM CDT DTL Blood (Blood, Venous) 01/22/2023 12:08 PM CDT 01/22/2023 12:52 PM CDT Janusz ArringtonB.S. LAB BLOOD ADD-ON Performing Organization Address City/[facility]/ZIP Co de Phone Number [facility] [address] [place], [place] [address] 200 [place] [address] * (ABNORMAL) Thyroid Function [place] (01/22/2023 12:08 PM CDT) [facility] TSH, Sensitive 5.8(H) 0.3 - 4.2 mIU/L 01/22/2023 2:29 PM CDT DT Blood (Blood, Venous) 01/22/2023 12:08 PM CDT 01/22/2023 12:52 PM CDT Janusz ArringtonB.S. LAB BLOOD ADD-ON [facility] [address] [place], [place] [address] 200 [place] [address] * (ABNORMAL) CRP (C-Reactive Protein) (01/22/2023 12:08 PM CDT) [facility] C-Reactive Protein (CRP), S 21.1(H) <5.0 mg/L 01/22/2023 1:30 PM CDT [facility] Blood (Blood, Venous) 01/22/2023 12:08 PM CDT 01/22/2023 12:52 PM CDT Janusz ArringtonB.S. LAB BLOOD ADD-ON [facility] [address] [place] [address], [facility] 200 [place] [address] * Rheumatoid Factor (01/22/2023 12:08 PM CDT) [facility] Rheumatoid Factor, S <15 <15 IU/mL 01/22/2023 7:37 PM CDT [facility] Blood (Blood, Venous) 01/22/2023 12:08 PM CDT 01/22/2023 4:20 PM CDT Janusz Ardon LAB BLOOD ADD-ON [facility] [address] [place] [address] [facility] [address] [place] [address] * GEMA (Antinuclear Antibodies) (01/22/2023 12:08 PM CDT) Pathologist [facility] Antinuclear Ab, S 0.2 <=1.0 (Negative) U 01/23/2023 11:43 AM CDT [facility] Comment: ----ADDITIONAL INFORMATION---- Method: Enzyme-linked immunoassay using HEp-2 nuclear extract supplemented with purified antigens. Blood (Blood, Venous) 01/22/2023 12:08 PM CDT 01/22/2023 4:28 PM CDT Janusz Ardon LAB BLOOD ADD-ON Performing Organization Address [facility] Co de Phone Number [facility] [address] [place] [address] [facility] [address] [place] [address] * (ABNORMAL) Cytokine Panel (01/22/2023 12:07 PM CDT) TNF 21.4(H) <10.0 pg/mL 01/23/2023 2:37 PM [...] developed and its performance characteristics determined by [facility] in a manner consistent with CLIA requirements. This test has not been cleared or approved by the U.S. Food and Drug Administration. Blood (Blood, Venous) 01/22/2023 12:07 PM CDT 01/23/2023 8:12 AM CDT Janusz Ardon LAB BLOOD NON AD D-ON [facility] [address] [place] [address] [facility] [address] [place] [address] [place] [address] documented in this encounter Visit Diagnoses Diagnosis Myelofibrosis Primary (HCC)- Primary documented in this encounter Care Teams Surgery Aide Relationship Specialty Start Date End Date Elsewhere, Pcp PCP - General 11/04/21 documented as of this encounter
--- OUTSIDE RECORDS SUMMARY | 2023-08-21 10:25 | XMS_ITS | Encounter Summary ---
Author Name Unknown Organization [facility] Address [address] [place] [address] Care Team Providers Care Contract Mail Carrier Name Role Phone Elsewhere, Pcp Primary Care Provider Unavailabl e Encounter Details Date Type Department Care Team ([facility] st Contact Info) Description 01/28/2023 Specialty Pharmacy [facility] [address] [place] [phone] Edin Kaufman, Pharm.D., R.Ph. [address] [place] [phone] Social History Tobacco Use Types Packs/Day Years [...] Sex Assigned at Female 07/24/2021 11:03 AM WINDING INSPECTOR Gender Identity Female 07/24/2021 11:03 AM WINDING INSPECTOR Sexual Orientation Straight 07/24/2021 11 :03 AM WINDING INSPECTOR documented as of this encounter Miscellaneous Notes * Telephone Encounter - Edin Kaufman, Pharm.D., R.Ph. - 01/28/2023 10:33 AM CDT Note created for purposes of potential enrollment with [facility] and medication interaction check via [employer] interaction land checker. No telephone contact with patient at this point. documented in this encounter Plan of Treatment Not on file documented as of this encounter Visit Diagnoses Not on filedocumented in this encounter Additional Health Concerns Infection Onset Date Last Indicated Resolved Time Protective Environment 01/22/2023 01/22/2023 documented as of this encounter Care Teams Contract Mail Carrier Relationship Specialty Start Date End Date Elsewhere, Pcp PCP - General 11/04/21 documented as of this encounter
--- OUTSIDE RECORDS SUMMARY | 2023-08-21 10:25 | XMS_ITS | Encounter Summary ---
Author Name Unknown Organization [facility] Address [address] [place] [phone] Care Team Providers Care Com Writer Name Role Phone Elsewhere, Pcp Primary Care Provider Unavailabl e Encounter Details Date Type Department Care Team (Latest Contact Info) Description 01/30/2023 Specialty Pharmacy [facility] [id number] [place] [phone] Joselin Martins, Pharm.D., R.Ph. [address] [place] [phone] Myelofibrosis Primary (HCC) (Primary Dx) Social History [...] Sex Assigned at Female 07/24/2021 11:03 AM BLOCKERS SKIVER Gender Identity Female 07/24/2021 11:03 AM BLOCKERS SKIVER Sexual Orientation Straight 07/24/2021 11 :03 AM BLOCKERS SKIVER documented as of this encounter Miscellaneous Notes * Telephone Encounter - Joselin Martins, Pharm.D., R.Ph. - 01/30/2023 9:42 AM CDT SUBJECTIVE REASON FOR VISIT Patient counseling and education, via telephone, for new hematology/oncology medication therapy andestablishing medication reassessment timeline. HISTORY OF PRESENT ILLNESS Ms. Jennifer Dobbs is a 52 y.o. female, who is followed by the specialty pharmacy service for Vonjo (pacritinib) for myelofibrosis. Medications the Patient Reported Taking acetaminophen (TYLENOL) 500 mg tablet (Taking) allopurinoL (ZYLOPRIM) 300 mg tablet (Taking) hydroxyurea (HYDREA) 500 mg capsule (Taking) LORazepam (ATIVAN) 0.5 mg tablet (Taking) morphine (MS CONTIN) 15 mg ER tablet (Taking) morphine (MS CONTIN) 30 mg ER tablet (Taking) oxyCODONE (ROXICODONE) 5 mg immediate release tablet (Taking) pacritinib (VONJO) 100 mg capsule (Taking) sennosides (SENOKOT) 8.6 mg tablet (Taking) sodium-potassium bicarbonate (VASYL-SELTZER GOLD) 344-1,050-1,000 mg tablet, effervescent (Taking) torsemide (DEMADEX) 20 mg tablet (Taking) OBJECTIVE Lab Results Component Value Date CREATININE 1.17 (H) 01/22/2023 EGFR 55 (L) 01/22/2023 ASSESSMENT / PLAN 1. Medication counseling/education I counseled the patient's , Gian via phone. Education related to medication: Pacritinib (Vonjo): Dose/directions: Take 1 capsule (100 mg total) by mouth 2 (two) times a day. Duration: Duration per tolerance/provider. Proper use: Should be swallowed whole, with or without food. Do not open, break, or chew capsules. Patients who are on treatment with other kinase inhibitors before the initiation of VONJO must taperor discontinue according to the prescribing information for that drug. If a dose is missed, the patient should take the next prescribed dose at its scheduled time. Extra capsules should not be taken to make up for the missed dose. Timely administration/intake: The medication should be taken at approximately the same time each day. A smartphone application or calendar can be used. Storage/handling: Store at room temperature, below 30??C (86??F). Keep the bottle tightly closed and protect from light. Store in original package. Dispense in original package or in a light-resistant container. Side effects: diarrhea, thrombocytopenia, nausea, anemia, and peripheral edema. Other potential Warnings/ safety precautions: Hemorrhage, diarrhea, thrombocytopenia, prolonged QT interval, major adverse cardiac events, thrombosis, secondary malignancies, and risk of infection. Lifestyle and self-management skills/ Tips to prevent adverse drug reactions: Important to have labs done (CBC, ECG). Pacritinib should be held for 7 days prior to surgery or invasive procedures, andrestarted after consulting with provider. Patient should report symptoms consistent with the above-mentioned warnings. Interactions (drug/food interactions): Drug interactions referenced in #2 below. Food: no restrictions noted in initial product labeling. However, the impact of grapefruit on pacritinib is not known.Recommend avoiding grapefruit and grapefruit juice until additional data becomes available. Contraindications/ considerations: There are no available data on use in women to evaluate for a drug- associated risk of major defects, miscarriage, or adverse maternal or outcomes. is not recommended during treatment, and for 2 weeks after the last dose. May impair male fertility. Educational resource/decision support tools: www.[facility] and the patient support programs on [facility].org. The caregiver was attentive and ready to [...] sensitivity, medication and health history considered at insurance counselor (renal function if available). To optimize outcomes, patient assessed for the need of other possible supportive therapies and informed of importance of proper monitoring and future reassessment. The patient/caregiver's prior education on this new therapy and disease specific knowledge were assessed with counseling and education tailored to this level of understanding. Conley concerns and questions were addressed. Patient specific considerations/desires/requests noted at insurance counselor: Wondering if she is to continue the hydroxyurea. I could not find any specific plan so I advised to check with provider. Also, concerned with heart flutter and arrhythmia. Prior EKG studies seemed normal but advised to report any symptoms above and beyond what she is currently experiencing and maybe checking with provider for EKG study prior to or soon after starting Vonjo. Advised that we are starting at lower dose and may increase as tolerated to 200mg BID. Patient is able to self-administer the medication(s). No social, environmental, functional or cognitive barriers are apparent. Patient is eligible for service through [facility]. Links to access additional resources (financial, community), pharmacy contact information and disposal information included in dispensed 'Welcome Packet' and/or printed materials provided with the prescription. The patient/caregiver was encouraged to ask questions or to call the specialty pharmacy with questions they may have after reviewing printed material. 2. Potential drug-drug interactions No clinically significant drug interactions were identified with Vonjo (pacritinib). Specialty medication(s) reconciled and good kay attempt made in obtaining a complete medication list. Patient encouraged to report any new or change of medications (prescribed/over the counter/supplements) to assist in maintaining this list for accuracy. 3. Goals of therapy and other expectations/outcomes: Optimize medication adherence. Evaluate/prevent drug-drug and drug-disease interactions. Minimize, prevent and/or manage side effects. The patient has decided to use the [facility]. Follow-up: 1 month(s) Joselin Martins, Pharm.D., R.Ph. documented in this encounter Plan of Treatment Not on file documented as of this encounter Visit Diagnoses Diagnosis Myelofibrosis Primary (HCC)- Primary documented in this encounter Additional Health Concerns Infection Onset Date Last Indicated Resolved Time Protective Environment 01/22/2023 01/22/2023 documented as of this encounter Care Teams Com Writer Relationship Specialty Start Date End Date Elsewhere, Pcp PCP - General 11/04/21 documented as of this encounter
--- OUTSIDE RECORDS SUMMARY | 2023-08-21 10:25 | XMS_ITS | Encounter Summary ---
Author Name Unknown Organization [facility] Address [address] [place] [address] Care Team Providers Care Rotary Shear Cutter Name Role Phone Elsewhere, Pcp Primary Care Provider Unavailabl e Encounter Details Date Type Department Care Team ([facility] st Contact Info) Description 12/10/2022 Documentation Department of Cardiovascular Diseases in [place], [place] [address] [place] [phone] Aleyda Briseno [address] [place] [address] Social History Tobacco Use Types Packs/Day Years [...] Sex Assigned at Female 07/24/2021 11:03 AM JAVA ENTERPRISE ARCHITECT Gender Identity Female 07/24/2021 11:03 AM JAVA ENTERPRISE ARCHITECT Sexual Orientation Straight 07/24/2021 11 :03 AM JAVA ENTERPRISE ARCHITECT documented as of this encounter Plan of Treatment Not on file documented as of this encounter Visit Diagnoses Not on filedocumented in this encounter Care Teams Rotary Shear Cutter Relationship Specialty Start Date End Date Elsewhere, Pcp PCP - General 11/04/21 documented as of this encounter
--- OUTSIDE RECORDS SUMMARY | 2023-08-21 10:25 | XMS_ITS | Encounter Summary ---
Author Name Unknown Organization [facility] Address [address] [place] [address] Care Team Providers Care Cvir Tech Name Role Phone Elsewhere, Pcp Primary Care Provider Unavailabl e Reason for Visit * Reason Onset Date Comments Med Refill 01/22/2023 Febuxostat Encounter Details Date Type Department Care Team (Latest Contact Info) Description 01/22/2023 Clinical Communication Division of Hematology in [place], [place] [address] [place] [phone] Janusz Govea M.B.B.S. [address] [place] [phone] Med Refill (Febuxostat) Social History Tobacco Use Types Packs/Day Years [...] Sex Assigned at Female 07/24/2021 11:03 AM CRATE REPAIRER Gender Identity Female 07/24/2021 11:03 AM CRATE REPAIRER Sexual Orientation Straight 07/24/2021 11 :03 AM CRATE REPAIRER documented as of this encounter Miscellaneous Notes * Telephone Encounter - Dena Junior R.N. - 01/22/2023 11:47 AM CDT Images from the original note were not included. Febuxostat not covered by pt drug plan. They recommend documented in this encounter Plan of Treatment Not on file documented as of this encounter Visit Diagnoses Not on filedocumented in this encounter Additional Health Concerns Infection Onset Date Last Indicated Resolved Time Protective Environment 01/22/2023 01/22/2023 documented as of this encounter Care Teams Cvir Tech Relationship Specialty Start Date End Date Elsewhere, Pcp PCP - General 11/04/21 documented as of this encounter
--- OUTSIDE RECORDS SUMMARY | 2023-08-21 10:25 | XMS_ITS | Encounter Summary ---
Author Name Unknown Organization [facility] Address [address] [place] [address] Care Team Providers Care Air Cargo Agent Name Role Phone Elsewhere, Pcp Primary Care Provider Unavailabl e Encounter Details Date Type Department Care Team ([facility] st Contact Info) Description 01/20/2023 Orders Only Division of Hematology in [place], [place] [address] [place] [phone] Janusz Govea M.B.B.S. [address] [place] [phone] Anemia Of Chronic Disease (Primary Dx); Splenomegaly Acquired; Myelofibrosis Primary (HCC) Social History Tobacco Use Types Packs/Day Years [...] Sex Assigned at Female 07/24/2021 11:03 AM HORTICULTURE SUPERINTENDENT Gender Identity Female 07/24/2021 11:03 AM HORTICULTURE SUPERINTENDENT Sexual Orientation Straight 07/24/2021 11 :03 AM HORTICULTURE SUPERINTENDENT documented as of this encounter Plan of Treatment Not on file documented as of this encounter Visit Diagnoses Diagnosis Anemia Of Chronic Disease- Primary Splenomegaly Acquired Myelofibrosis Primary (HCC) documented in this encounter Care Teams Air Cargo Agent Relationship Specialty Start Date End Date Elsewhere, Pcp PCP - General 11/04/21 documented as of this encounter
--- OUTSIDE RECORDS SUMMARY | 2023-08-21 10:25 | XMS_ITS | Encounter Summary ---
Author Name Unknown Organization [facility] Address [address] [place] [address] Care Team Providers Care Reflow Operator Name Role Phone Elsewhere, Pcp Primary Care Provider Unavailabl e Encounter Details Date Type Department Care Team (Latest Contact Info) Description 01/22/2023 7:39 AM CDT - 01/22/2023 11:47 AM CDT Hospital Encounter Department of Laboratory Medicine and Pathology, [facility] in [place], [place] [address] [place] [phone] Janusz Govea M.B.B.S. [address] [place] [phone] Myelofibrosis Primary (HCC) Discharge Disposition: Home or [...] Sex Assigned at Female 07/24/2021 11:03 AM INVENTORY CLERK Gender Identity Female 07/24/2021 11:03 AM INVENTORY CLERK Sexual Orientation Straight 07/24/2021 11 :03 AM INVENTORY CLERK documented as of this encounter Medications at [...] Date/Time Associated Diagnosis Comments SPSMA RESULT Routine 01/22/2023 8:04 AM CDT Myelofibrosis Primary (HCC) POTASSIUM, PLASMA Routine 01/22/2023 8:0 4 AM CDT Myelofibrosis Primary (HCC) CBC WITH DIFFERENTIAL, B Routine 01/22/2023 8:04 AM CDT Myelofibrosis Primary (HCC) TYPE AND SCREEN Routine 01/22/2023 8:04 AM CDT Myelofibrosis Primary (HCC) COMPREHENSIVE METABOLIC PANEL, S/P Routine 01/22/2023 8:04 AM CDT Myelofibrosis Primary (HCC) documented in this encounter Results * Type and Screen (with Reflex Antibody ID) (01/22/2023 8:04 AM CDT) ABORh A Pos Not applicable 01/22/2023 9:14 AM CDT ETRM Antibody Screen Negative Negative 01/22/2023 9:30 AM CDT ETRM Type & Screen Expiration 01/25/2023 23:59 01/22/2023 9:14 AM CDT ETRM Testing Location [place] DEFAULT 01/22/2023 8:48 AM CDT ETRM Blood (Blood, Venous) 01/22/2023 8:04 AM CDT 01/22/2023 8:48 AM CDT Janusz Ardon LAB BLOOD BANK T EST ORDERABLES [facility] [address] [place] [address], [facility] ETRM [facility] [address] [place] [address] * (ABNORMAL) Comprehensive Metabolic Panel (01/22/2023 8:04 AM CDT) Potassium, S 6.0(CH) 3.6 - 5.2 mmol/L 01/22/2023 10:08 AM CDT DTL Sodium, S 139 135 - 145 mmol/L 01/22/2023 10:08 AM CDT DTL Chloride, S 102 98 - 107 mmol/L 01/22/2023 10:08 AM CDT DTL Bicarbonate, S 28 22 - 29 mmol/L 01/22/2023 10:08 AM CDT DTL Anion Gap 9 7 - 15 01/22/2023 10:08 AM CDT DTL BUN (Blood Urea Nitrogen), S 31(H) 6 - 21 mg/dL 01/22/2023 10:08 AM CDT DTL Creatinine 1.17(H) 0.59 - 1.04 mg/dL 01/22/2023 10:08 AM CDT DTL Estimated GFR (eGFR) 55(L) >=60 mL/min/BS A 01/22/2023 10:08 AM CDT DTL Comment: Estimated GFR calculated using the 2020 CKD_EPI creatinine equation. Calcium, Total, S 9.3 8.6 - 10.0 mg/dL 01/22/2023 10:08 AM CDT DTL Glucose, S 97 70 - 140 mg/dL 01/22/2023 10:08 AM CDT DTL Protein, Total, S 6.3 6.3 - 7.9 g/dL 01/22/2023 10:08 AM CDT DTL Albumin, S 4.6 3.5 - 5.0 g/dL 01/22/2023 10:08 AM CDT DTL Aspartate Aminotransferase (AST), S 64(H) 8 - 43 U/L 01/22/2023 10:08 AM CDT DTL Alkaline Phosphatase, S 284(H) 35 - 104 U/L 01/22/2023 10:08 AM CDT DTL Alanine Aminotransferase (ALT), S 65(H) 7 - 45 U/L 01/22/2023 10:08 AM CDT DTL Bilirubin, Total, S 0.7 <=1.2 mg/dL 01/22/2023 10:08 AM CDT DTL Blood (Blood, Venous) 01/22/2023 8:04 AM CDT 01/22/2023 8:37 AM CDT Janusz AlexandraS. LAB BLOOD ADD-ON Performing Organization Address City/[facility]/[place] [address] * Potassium, Plasma (01/22/2023 8:04 AM CDT) Potassium, P 4.5 3.6 - 5.2 mmol/L 01/22/2023 8:47 AM CDT DTL Blood (Blood, Venous) 01/22/2023 8:04 AM CDT 01/22/2023 8:37 AM CDT Janusz ArringtonB.[place] [address] * (ABNORMAL) SPSMA Result (01/22/2023 8:04 AM CDT) Neutrophilic Segs and Bands 67 50 - 75 % 01/22/2023 10:23 AM CDT [facility] Lymphocytes 18 18 - 42 % 01/22/2023 10:23 AM CDT [facility] Monocytes 11 2 - 11 % 01/22/2023 10:23 AM CDT [facility] Eosinophils 1 1 - 3 % 01/22/2023 10:23 AM CDT [facility] Myelocytes 3(H) <0.5 % 01/22/2023 10:23 AM CDT [facility] Nucleated RBC 179 /100 WBC 01/22/2023 10:23 AM CDT [facility] Manual Absolute Neutrophil Count 22.31(H) 1.56 - 6.45 x10(9)/L 01/22/2023 10:23 AM CDT [facility] Comment: ----ADDITIONAL INFORMATION---- The manual absolute neutrophil count is derived from a manual differential count and therefore is not exactly comparable to the automated absolute neutrophil count. Blood (Blood, Venous) 01/22/2023 8:04 AM CDT 01/22/2023 8:25 AM CDT Janusz Ardon LAB BLOOD ADD-ON [facility] [address] [place] [address], [facility] [address] [place] [address] * (ABNORMAL) CBC with Differential, Blood (01/22/2023 8:04 AM CDT) [facility] Signature Hemoglobin 7.6(L) 11.6 - 15.0 g/dL 01/22/2023 9:00 AM CDT DTL Hematocrit 26.1(L) 35.5 - 44.9 % 01/22/2023 9:03 AM CDT DTL Erythrocytes 2.41(L) 3.92 - 5.13 x10(12)/L 01/22/2023 9:03 AM CDT DTL MCV 108.3(H) 78.2 - 97.9 fL 01/22/2023 9:03 AM CDT DTL RBC Distrib Width 35.5(H) 12.2 - 16.1 % 01/22/2023 9:00 AM CDT DTL Platelet Count 1081(CH) 157 - 371 x10(9)/L 01/22/2023 10:23 AM CDT DTL Comment:Large platelets - co unt approximate. Leukocytes 33.3(H) 3.4 - 9.6 x10(9)/L 01/22/2023 10:23 AM CDT DTL Comment:Corrected for normob lasts. Neutrophils SeeComment 1.56 - 6.45 x10(9)/L 01/22/2023 10:23 AM CDT [facility] Comment:Auto-diff results no t valid. See manual differential. Blood (Blood, Venous) 01/22/2023 8:04 AM CDT 01/22/2023 8:25 AM CDT Janusz Ardon LAB BLOOD ADD-ON [facility] 200 [place] [address], [facility] DTL [facility] [address] [place], [place] [phone] [place] [address] 200 [place] [address] documented in this encounter Visit Diagnoses Diagnosis Myelofibrosis Primary (HCC) documented in this encounter Care Teams Reflow Operator Relationship Specialty Start Date End Date Elsewhere, Pcp PCP - General 11/04/21 documented as of this encounter
--- OUTSIDE RECORDS SUMMARY | 2023-08-21 10:26 | XMS_ITS | Encounter Summary ---
Author Name Unknown Organization [facility] Address [address] [place] [address] Care Team Providers Care Post Manager Name Role Phone Elsewhere, Pcp Primary Care Provider Unavailabl e Reason for Visit * Reason Onset Date Comments External Lab Entry 12/03/2022 Encounter Details Date Type Department Care Team (Latest Contact Info) Description 12/03/2022 Clinical Communication Division of Hematology in [place], [place] [address] [place] [phone] Janusz Govea M.B.BZahraaS. [address] [place] [phone] External Lab Entry Social History Tobacco Use [...] Sex Assigned at Female 07/24/2021 11:03 AM LOWER SCHOOL MUSIC TEACHER Gender Identity Female 07/24/2021 11:03 AM LOWER SCHOOL MUSIC TEACHER Sexual Orientation Straight 07/24/2021 11 :03 AM LOWER SCHOOL MUSIC TEACHER documented as of this encounter Miscellaneous Notes * Telephone Encounter - Leann Marroquin - 12/03/2022 10:35 AM CDT Outside labs collected on 12/03/2022 have been received. The fax has been scanned into the patient record via [employer], and the CBC results are as noted below. Hemoglobin: 7.8 Hematocrit: 26.1 WBC: 24.57 ANC: 9.60 Platelets: 1096 Please note: Are there additional labs reported on the outside report? No documented in this encounter Plan of Treatment Not on file documented as of this encounter Visit Diagnoses Not on filedocumented in this encounter Care Teams Post Manager Relationship Specialty Start Date End Date Elsewhere, Pcp PCP - General 11/04/21 documented as of this encounter
--- OUTSIDE RECORDS SUMMARY | 2023-08-21 10:26 | XMS_ITS | Encounter Summary ---
Author Name Unknown Organization [facility] Address [address] [place] [address] Care Team Providers Care Commercial Account Executive Name Role Phone Elsewhere, Pcp Primary Care Provider Unavailabl e Reason for Referral * Outpatient (Routine) - Closed Specialty Diagnoses / Procedures Referred By Serena matson Referred To Contact Diagnoses Hypertension Pulmonary Primary (HCC) Procedures Echo Transthoracic (TTE) Charity Tijerina M.B.B.S. [address] [place] [phone] [facility] Referral ID Status Reason Start Date Expiration Date Visits Re quested Visits Authorized [id number] Closed 11/13/2021 11/13/2022 1 1 Reason for Visit * Outpatient (Routine) - Closed Specialty Diagnoses / Procedures Referred By Serena matson Referred To Contact Diagnoses Hypertension Pulmonary Primary (HCC) Procedures Echo Transthoracic (TTE) Charity Tjierina M.B.B.S. [address] [place] [phone] [facility] Referral ID Status Reason Start Date Expiration Date Visits Re quested Visits Authorized [id number] Closed 11/13/2021 11/13/2022 1 1 Encounter Details Date Type Department Care Team (Latest Contact Info) Description 12/06/2022 1:35 PM CDT - 12/06/2022 11:59 PM CDT Hospital Encounter Department of Cardiovascular Diseases in [place], [place] [address] [place] [address] Charity Tijerina M.B.B.S. [address] [place] [phone] Hypertension Pulmonary Primary (HCC) Discharge Disposition: Home or Self [...] Sex Assigned at Female 07/24/2021 11:03 AM BOAT OFFICER Gender Identity Female 07/24/2021 11:03 AM BOAT OFFICER Sexual Orientation Straight 07/24/2021 11 :03 AM BOAT OFFICER documented as of this encounter Medications at [...] Comments (TTE) 2D ECHO DOPPLER COLOR Routine 12/06/2022 3:29 PM CDT Hypertension Pulmonary Primary (HCC) documented in this encounter Results * (TTE) 2D ECHO DOPPLER COLOR (12/06/2022 3:29 PM CDT) Ejection Fraction 59 MC CV EIMS LV Mass Index 102 MC CV EIMS LV End-Diastolic Diameter 57 MC CV EIMS LV End-Systolic Diameter 37 MC CV EIMS LV End-Diastolic Volume 203 MC CV EIMS LV End-Systolic Volume 78 MC CV EIMS MV E Velocity 1.2 MC CV EIMS MV A Velocity 1.1 MC CV EIMS MV E/A 1.09 MC CV EIMS MV e' Velocity Medial 0.07 MC CV EIMS MV e' Velocity Lateral 0.11 MC CV EIMS MV E/e' Medial 17.1 MC CV EIMS MV E/e' Lateral 10.9 MC CV EIMS Left ventricular stroke volume index 51 MC CV EIMS Cardiac Output 7.98 MC CV EIMS Cardiac Index 3.85 MC CV EIMS LV Interventricular Septal Wall Thickness 9 MC CV EIMS LV Posterior Wall Thickness 10 MC CV EIMS LV Relative Wall Thickness 35 MC CV EIMS RV 4-Chamber Basal Diameter 58 MC CV EIMS RV 4-Chamber Mid Diameter 41 MC CV EIMS RV 4-Chamber Length 101 MC CV EIMS Tricuspid Annular S? 0.18 MC CV EIMS RV Free Wall Strain -23 MC CV EIMS TR Vmax 3.85 MC CV EIMS RA Pressure 10 MC CV EIMS RV Systolic Pressure 69 MC CV EIMS Estimated diastolic pulmonary artery pressure 19 MC CV EIMS TR Vmax/RVOT TVI 0.16 MC CV EIMS Anatomical Region Laterality Modality Echocardiography 12/06/2022 2:05 PM CDT Impressions 12/06/2022 5:04 PM CDT Echocardiogram performed per follow-up pulmonary hypertension protocol. Last full echocardiogram performed 06/06/2021. Anemia, thyrotoxicosis, or another high output state could contribute to the increased Doppler velocities; HgB 8.0 g/dL collected 06-DEC-2022 (Today). LEFT VENTRICLE:Severely enlarged left ventricular chamber size using contemporary volumetric guidelines. Flattening of the ventricular septum. Abnormal left ventricular geometry with ??eccentric left ventricular hypertrophy. Calculated 3-D volumetric left ventricular ejection fraction 59%. Left ventricular stroke volume index 51 ml/m2. Left ventricular cardiac index 3.85 l/min/m2. No regional wall motion abnormalities. Elevated left ventricular filling pressure , at most. The velocities across the mitral valve are increased, likely secondary due to chronic anemia. The lateral E/e' is relatively normal. Note: Normal LV filling pressure by right heart cath dated 07-NOV-2021. RIGHT VENTRICLE:Severely enlarged right ventricular chamber size. Mild- moderately reduced right ventricular systolic function. Calculated 3-D volumetric right ventricular ejection fraction 34%. Estimated right ventricular systolic pressure 69 mmHg (right atrial pressure of 10 mmHg). Averaged right ventricular free wall longitudinal peak systolic strain is -23% (normal = more negative than -24%). ATRIA:Enlarged left atrial size by visual estimate. Enlarged right atrial size by visual estimate. CARDIAC VALVES:Trileaflet aortic valve. Mildly thickened aortic valve. No aortic valve regurgitation. Mildly thickened mitral valve. Mildly calcified mitral annulus. Trivial mitral valve regurgitation. Normal pulmonary valve. Increased pulmonary valve systolic velocities. Trivial pulmonary valve regurgitation. Normal tricuspid valve. Mild tricuspid valve regurgitation. OTHER ECHO FINDINGS:Borderline enlarged inferior vena cava size with reduced inspiratory collapse (<50%) (challenging visualization). Intrapulmonary shunt has been identified on 08/13/2022 echocardiogram; shunt study was not repeated. No intracardiac mass or thrombus, but the left atrial appendage cannot be visualized adequately with transthoracic echo to exclude thrombus in this location. No ??pericardial effusion. For the complete report, see the Order-Level Documents. Narrative 12/06/2022 5:04 PM CDT For the complete report, see the Order-Level Documents. Hemodynamics Heart Rate: 76 BPM Blood Pressure: 110 / 63 mmHg ECG: Sinus rhythm with ectopics Final Impressions 1. Severely enlarged right ventricular chamber size, mild-moderately reduced systolic function, estimated right ventricular systolic pressure 69 mmHg (right atrial pressure of 10 mmHg). 2. Averaged right ventricular free wall longitudinal peak systolic strain is - 23% (normal = more negative than -24%). 3. Severely enlarged left ventricular chamber size, no regional wall motion abnormalities, calculated 3-D volumetric ejection fraction 59%. 4. Left ventricular cardiac index 3.85 l/min/m2. 5. Flattening of the ventricular septum. 6. Elevated left ventricular filling pressure , at most. The velocities across the mitral valve are increased, likely secondary due to chronic anemia. The lateral E/e' is relatively normal. 7. Mild tricuspid valve regurgitation. 8. No ??pericardial effusion. Procedure Note Ladonna Armenta M.D. - 12/06/2022 For the complete report, see the Order-Level Documents. Hemodynamics Heart Rate: 76 BPM Blood Pressure: 110 / 63 mmHg ECG: Sinus rhythm with ectopics Final Impressions 1. Severely enlarged right ventricular chamber size, mild-moderatelyreduced systolic function, estimated right ventricular systolic [id number] mmHg (right atrial pressure of 10 mmHg). 2. Averaged right ventricular free wall longitudinal peak systolic strainis -23% (normal = more negative than -24%). 3. Severely enlarged left ventricular chamber size, no regional wallmotion abnormalities, calculated 3-D volumetric ejection fraction 59%. 4. Left ventricular cardiac index 3.85 l/min/m2. 5. Flattening of the ventricular septum. 6. Elevated left ventricular filling pressure , at most. The velocitiesacross the mitral valve are increased, likely secondary due to chronicanemia. The lateral E/e' is relatively normal. 7. Mild tricuspid valve regurgitation. 8. No pericardial effusion. Findings Echocardiogram performed per follow-up pulmonary hypertension protocol.Last full echocardiogram performed 06/06/2021. Anemia, thyrotoxicosis, oranother high output state could contribute to the increased Dopplervelocities; HgB 8.0 g/dL collected 06-DEC-2022 (Today). LEFT VENTRICLE:Severely enlarged left ventricular chamber size usingcontemporary volumetric guidelines. Flattening of the ventricular septum.Abnormal left ventricular geometry with eccentric left ventricularhypertrophy. Calculated 3-D volumetric left ventricular ejection [id number]%. Left ventricular stroke volume index 51 ml/m2. Left ventricularcardiac index 3.85 l/min/m2. No regional wall motion abnormalities.Elevated left ventricular filling pressure , at most. The velocitiesacross the mitral valve are increased, likely secondary due to chronicanemia. The lateral E/e' is relatively normal. Note: Normal LV fillingpressure by right heart cath dated 07-NOV-2021. RIGHT VENTRICLE:Severely enlarged right ventricular chamber size.Mild-moderately reduced right ventricular systolic function. Calculated3-D volumetric right ventricular ejection fraction 34%. Estimated rightventricular systolic pressure 69 mmHg (right atrial pressure of 10 mmHg).Averaged right ventricular free wall longitudinal peak systolic strain is-23% (normal = more negative than -24%). ATRIA:Enlarged left atrial size by visual estimate. Enlarged right atrialsize by visual estimate. CARDIAC VALVES:Trileaflet aortic valve. Mildly thickened aortic valve. Noaortic valve regurgitation. Mildly thickened mitral valve. Mildlycalcified mitral annulus. Trivial mitral valve regurgitation. Normalpulmonary valve. Increased pulmonary valve systolic velocities. Trivialpulmonary valve regurgitation. Normal tricuspid valve. Mild tricuspidvalve regurgitation. OTHER ECHO FINDINGS:Borderline enlarged inferior vena cava size withreduced inspiratory collapse (<50%) (challenging visualization).Intrapulmonary shunt has been identified on 08/13/2022 echocardiogram;shunt study was not repeated. No intracardiac mass or thrombus, but theleft atrial appendage cannot be visualized adequately with transthoracicecho to exclude thrombus in this location. No pericardial effusion. For the complete report, see the Order-Level Documents. Charity Ardon CV ECHO PROCEDURES documented in this encounter Visit Diagnoses Diagnosis Hypertension Pulmonary Primary (HCC) documented in this encounter Care Teams Commercial Account Executive Relationship Specialty Start Date End Date Elsewhere, Pcp PCP - General 11/04/21 documented as of this encounter
--- OUTSIDE RECORDS SUMMARY | 2023-08-21 10:26 | XMS_ITS | Encounter Summary ---
Author Name Unknown Organization [facility] Address [address] [place] [address] Care Team Providers Care Food Service Associate Name Role Phone Elsewhere, Pcp Primary Care Provider Unavailabl e Encounter Details Date Type Department Care Team ([facility] st Contact Info) Description 12/10/2022 Orders Only Division of Hematology in [place], [place] [address] [place] [phone] Janusz Govea M.B.B.S. [address] [place] [phone] Myelofibrosis Primary (HCC) (Primary Dx) Social History [...] Sex Assigned at Female 07/24/2021 11:03 AM TRACER BULLET CHARGING MACHINE OPERATOR Gender Identity Female 07/24/2021 11:03 AM TRACER BULLET CHARGING MACHINE OPERATOR Sexual Orientation Straight 07/24/2021 11 :03 AM TRACER BULLET CHARGING MACHINE OPERATOR documented as of this encounter Plan of Treatment Not on file documented as of this encounter Results * Uric Acid (12/10/2022 9:08 AM CDT) Uric Acid, S 4.9 2.7 - 6.1 mg/dL 12/10/2022 10:18 AM CDT DTL Blood (Blood, Venous) 12/10/2022 9:08 AM CDT 12/10/2022 9:47 AM CDT Janusz ArringtonB.S. LAB BLOOD ADD-ON [facility] [address] [place] [address], [address] [address] * Potassium, Plasma (12/10/2022 9:08 AM CDT) Potassium, P 4.6 3.6 - 5.2 mmol/L 12/10/2022 10:11 AM CDT DTL Blood (Blood, Venous) 12/10/2022 9:08 AM CDT 12/10/2022 9:47 AM CDT Janusz ArringtonB.S. LAB BLOOD ADD-ON [facility] [address] [place] [address], [facility] [address] [place] [address] documented in this encounter Visit Diagnoses Diagnosis Myelofibrosis Primary (HCC)- Primary documented in this encounter Care Teams Food Service Associate Relationship Specialty Start Date End Date Elsewhere, Pcp PCP - General 11/04/21 documented as of this encounter
--- OUTSIDE RECORDS SUMMARY | 2023-08-21 10:26 | XMS_ITS | Encounter Summary ---
Author Name Unknown Organization [facility] Address [address] [place] [address] Care Team Providers Care Hose Inspector And Patcher Name Role Phone Elsewhere, Pcp Primary Care Provider Unavailabl e Reason for Visit * Reason Onset Date Comments External Lab Entry 11/12/2022 Encounter Details Date Type Department Care Team (Latest Contact Info) Description 11/12/2022 Clinical Communication Division of Hematology in [place], [place] [address] [place] [phone] Janusz Govea M.B.BZahraaS. [address] [place] [phone] External Lab Entry Social History Tobacco Use [...] Sex Assigned at Female 07/24/2021 11:03 AM VETERINARY LABORATORY DIAGNOSTICIAN Gender Identity Female 07/24/2021 11:03 AM VETERINARY LABORATORY DIAGNOSTICIAN Sexual Orientation Straight 07/24/2021 11 :03 AM VETERINARY LABORATORY DIAGNOSTICIAN documented as of this encounter Miscellaneous Notes * Telephone Encounter - Leann Marroquin - 11/12/2022 12:43 PM CDT Outside labs collected on 11/12/2022 have been received. The fax has been scanned into the patient record via [employer], and the CBC results are as noted below. Hemoglobin: 7.6 Hematocrit: 25.8 WBC: 17.02 ANC: 8.0 Platelets: 975 Please note: Are there additional labs reported on the outside report? No documented in this encounter Plan of Treatment Not on file documented as of this encounter Visit Diagnoses Not on filedocumented in this encounter Care Teams Hose Inspector And Patcher Relationship Specialty Start Date End Date Elsewhere, Pcp PCP - General 11/04/21 documented as of this encounter
--- OUTSIDE RECORDS SUMMARY | 2023-08-21 10:26 | XMS_ITS | Encounter Summary ---
Author Name Unknown Organization [facility] Address [address] [place] [address] Care Team Providers Care Alliance Consultant Name Role Phone Elsewhere, Pcp Primary Care Provider Unavailabl e Reason for Visit * Reason Onset Date Comments Medication Clarification 10/30/2022 Encounter Details Date Type Department Care Team (Latest Contact Info) Description 10/30/2022 Clinical Communication Division of Hematology in [place], [place] [address] [place] [phone] Janusz Govea M.B.B.S. [address] [place] [phone] Medication Clarification Social History Tobacco Use Types Packs/Day Years [...] Assigned at Female 07/24/2021 11:03 AM COMMERCIAL LOAN OFFICER Gender Identity Female 07/24/2021 11:03 AM COMMERCIAL LOAN OFFICER Sexual Orientation Straight 07/24/2021 11 :03 AM COMMERCIAL LOAN OFFICER documented as of this encounter Plan of Treatment Not on file documented as of this encounter Visit Diagnoses Not on filedocumented in this encounter Care Teams Alliance Consultant Relationship Specialty Start Date End Date Elsewhere, Pcp PCP - General 11/04/21 documented as of this encounter
--- OUTSIDE RECORDS SUMMARY | 2023-08-21 10:26 | XMS_ITS | Encounter Summary ---
Author Name Unknown Organization [facility] Address [address] [place] [address] Care Team Providers Care Manager Of Broadcast Content Name Role Phone Elsewhere, Pcp Primary Care Provider Unavailabl e Reason for Referral * Outpatient (Routine) - Closed Specialty Diagnoses / Procedures Referred By Serena matson Referred To Contact Diagnoses Hypertension Pulmonary Primary (HCC) Procedures Six Minute Walk Charity Tijerina M.B.B.S. [address] [place] [phone] [facility] Referral ID Status Reason Start Date Expiration Date Visits Re quested Visits Authorized [id number] Closed 11/13/2021 11/13/2022 1 1 Reason for Visit * Outpatient (Routine) - Closed Specialty Diagnoses / Procedures Referred By Serena matson Referred To Contact Diagnoses Hypertension Pulmonary Primary (HCC) Procedures Six Minute Walk Charity Tijerina M.B.B.S. [address] [place] [address] [facility] Referral ID Status Reason Start Date Expiration Date Visits Re quested Visits Authorized [id number] Closed 11/13/2021 11/13/2022 1 1 Encounter Details Date Type Department Care Team (Latest Contact Info) Description 12/06/2022 11:00 AM CDT - 12/06/2022 1:34 PM CDT Hospital Encounter Department of Cardiac Rehabilitation in [place], [place] [address] [place] [phone] Charity Tijerina M.B.BZahraaS. 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 Were medications taken in the last 24 hours?: yes PRE WALK Assistive Device: None Height (cm): 169 Weight (kg): 101 BMI: 35.4 Resting Heart Rate: 99 Resting BP: 126/68Supplemental Oxygen used: Supplemental Oxygen Not Used Resting SpO2: 94 Ambika Dyspnea: 2 - Slight Ambika Fatigue: 4 - Somewhat Severe POST WALK Heart Rate: 128 SpO2: 93 BP: 132/60 Ambika Dyspnea: 3 - Moderate Ambika Fatigue: 4 - Somewhat Severe Time of Test: 11:05 CDT Total Distance Walked (Feet): 1320 Total Distance Walked (Meters): 402.34 Total # of Times Stopped: 0 Time Stopped (Seconds): 0 Time Walked (Seconds): 360 CALCULATIONS Estimated MPH: 2.5 Estimated METs: 2.92 % of Predicted Distance: 83.6 Interpretation: Six minute walk was reviewed. I agree with the reported results. documented in this encounter Plan of Treatment Not on file documented as of this encounter Procedures Procedure Name Priority Date/Time Associated Diagnosis Comments 6 MINUTE WALK Routine 12/06/2022 11:30 AM CDT Hypertension Pulmonary Primary (HCC) documented in this encounter Results * 6 MINUTE WALK (12/06/2022 11:30 AM CDT) Narrative Papo Jones M.D. - 12/06/2022 11:30 AM CDT Papo Jones M.D. ? 12/06/2022 11:18 AM Six Minute Walk Performed by: Yissel Loera, CEP Authorized by: Charity Tijerina M.B.BZahraaSZahraa ?? Were medications taken in the last 24 hours?: yes ?? PRE WALK Assistive Device: ??None Height (cm): ??169 Weight (kg): ??101 BMI: ??35.4 Resting Heart Rate: ??99 Resting BP: ??126/68Supplemental Oxygen used: ??Supplemental Oxygen Not Used Resting SpO2: ??94 Ambika Dyspnea: ??2 - Slight Ambika Fatigue: ??4 - Somewhat Severe POST WALK Heart Rate: ??128 SpO2: ??93 BP: ??132/60 Ambika Dyspnea: ??3 - Moderate Ambika Fatigue: ??4 - Somewhat Severe Time of Test: ??11:05 CDT Total Distance Walked (Feet): ??1320 Total Distance Walked (Meters): ??402.34 Total # of Times Stopped: ??0 Time Stopped (Seconds): ??0 Time Walked (Seconds): ??360 CALCULATIONS Estimated MPH: ??2.5 Estimated METs: ??2.92 % of Predicted Distance: ??83.6 Charity Ardon CV STRESS PROCEDURE S documented in this encounter Visit Diagnoses Diagnosis Hypertension Pulmonary Primary (HCC) documented in this encounter Care Teams Manager Of Broadcast Content Relationship Specialty Start Date End Date Elsewhere, Pcp PCP - General 11/04/21 documented as of this encounter
--- OUTSIDE RECORDS SUMMARY | 2023-08-21 10:26 | XMS_ITS | Encounter Summary ---
Author Name Unknown Organization [facility] Address [address] [place] [address] Care Team Providers Care Music Coordinator Name Role Phone Elsewhere, Pcp Primary Care Provider Unavailabl e Reason for Visit * Reason Onset Date Comments External Lab Entry 10/22/2022 Encounter Details Date Type Department Care Team (Latest Contact Info) Description 10/22/2022 Clinical Communication Division of Hematology in [place], [place] [address] [place] [phone] Janusz Govea M.B.B.S. [address] [place] [phone] External Lab Entry Social History Tobacco Use [...] Sex Assigned at Female 07/24/2021 11:03 AM PAID INTERN Gender Identity Female 07/24/2021 11:03 AM PAID INTERN Sexual Orientation Straight 07/24/2021 11 :03 AM PAID INTERN documented as of this encounter Miscellaneous Notes * Telephone Encounter - Jennifer Peralta - 10/22/2022 2:32 PM CDT Outside labs collected on 10/22/2022 have been received. The fax has been scanned into the patient record via [employer], and the CBC results are as noted below. Hemoglobin: 8.3 Hematocrit: 28.0 WBC: 16.99 ANC: 7.20 Platelets: 1107 Please note: Are there additional labs reported on the outside report? No documented in this encounter Plan of Treatment Not on file documented as of this encounter Visit Diagnoses Not on filedocumented in this encounter Care Teams Music Coordinator Relationship Specialty Start Date End Date Elsewhere, Pcp PCP - General 11/04/21 documented as of this encounter
--- OUTSIDE RECORDS SUMMARY | 2023-08-21 10:26 | XMS_ITS | Encounter Summary ---
Author Name Unknown Organization [facility] Address [address] [place] [address] Care Team Providers Care Grinder And Honer Operator Automatic Name Role Phone Elsewhere, Pcp Primary Care Provider Unavailabl e Encounter Details Date Type Department Care Team ([facility] st Contact Info) Description 11/15/2022 Clinical Communication Division of Hematology in [place], [place] [address] [place] [phone] Janusz Govea M.B.B.S. [address] [place] [address] Social History Tobacco Use Types Packs/Day Years [...] Sex Assigned at Female 07/24/2021 11:03 AM RESIDENT ATHLETIC TRAINER Gender Identity Female 07/24/2021 11:03 AM RESIDENT ATHLETIC TRAINER Sexual Orientation Straight 07/24/2021 11 :03 AM RESIDENT ATHLETIC TRAINER documented as of this encounter Plan of Treatment Not on file documented as of this encounter Visit Diagnoses Not on filedocumented in this encounter Care Teams Grinder And Honer Operator Automatic Relationship Specialty Start Date End Date Elsewhere, Pcp PCP - General 11/04/21 documented as of this encounter
--- OUTSIDE RECORDS SUMMARY | 2023-08-21 10:26 | XMS_ITS | Encounter Summary ---
Author Name Unknown Organization [facility] Address [address] [place] [phone] Care Team Providers Care Regulatory Affairs Consultant Name Role Phone Elsewhere, Pcp Primary Care Provider Unavailabl e Reason for Referral * Outpatient (Routine) - Closed Specialty Diagnoses / Procedures Referred By Contac t Referred To Contact Cardiovascular Disease Diagnoses Hypertension Pulmonary (HCC) Myelofibrosis (HCC) Dyspnea On Exertion Matthew Mayes M.D. [address] [place] [phone] [facility] Referral ID Status Reason Start Date Expiration Date Visits Re quested Visits Authorized [id number] Closed 12/10/2022 12/09/2025 1 1 * Outpatient (Routine) - Closed Specialty Diagnoses / Procedures Referred By Contac t Referred To Contact Diagnoses Hypertension Pulmonary (HCC) Myelofibrosis (HCC) Dyspnea On Exertion Procedures Echo Transthoracic (TTE) Matthew Mayes M.D. [address] [place] [phone] [facility] Referral ID Status Reason Start Date Expiration Date Visits Re quested Visits Authorized [id number] Closed 12/10/2022 12/10/2023 1 1 * Outpatient (Routine) - Closed Specialty Diagnoses / Procedures Referred By Contac t Referred To Contact Diagnoses Hypertension Pulmonary (HCC) Myelofibrosis (HCC) Dyspnea On Exertion Procedures Six Minute Walk Matthew Mayes M.D. [address] [place] [phone] [facility] Referral ID Status Reason Start Date Expiration Date Visits Re quested Visits Authorized [id number] Closed 12/10/2022 12/10/2023 1 1 Reason for Visit * Outpatient (Routine) - Closed Specialty Diagnoses / Procedures Referred By Contact Referred To Contact Cardiovascular Diseases / Cardiovascular Disease Diagnoses Hypertension Pulmonary (HCC) Janusz Govea M.B.BZahraaSZahraa [address] [place] [phone] [facility] Referral ID Status Reason Start Date Expiration Date Visits Re quested Visits Authorized [id number] Closed 09/18/2022 09/18/2023 1 1 Encounter Details Date Type Department Care Team (Latest Contact Info) Description 12/10/2022 8:00 AM CDT Comprehensive Visit Department of Cardiovascular Medicine in [place], [place] [address] [place] [phone] Matthew Mayes M.D. [address] [place] [phone] Myelofibrosis (HCC) (Primary Dx); Hypertension Pulmonary (HCC); Dyspnea On Exertion Social History Tobacco Use Types Packs/Day Years [...] Sex Assigned at Female 07/24/2021 11:03 AM COMMUNICATIONS MEDIA PROFESSOR Gender Identity Female 07/24/2021 11:03 AM COMMUNICATIONS MEDIA PROFESSOR Sexual Orientation Straight 07/24/2021 11 :03 AM COMMUNICATIONS MEDIA PROFESSOR documented as of this encounter Last Filed Vital Signs Vital Sign Reading Time Taken Comments Blood Pressure 114/71 12/10/2022 7:55 AM CDT Pulse 74 12/10/2022 7:55 AM CDT Temperature - - Respiratory Rate - - Oxygen Saturation - - Inhaled Oxygen Concentration - - Weight 103 kg (226 lb 6.6 oz) 12/10/2022 7:55 AM CDT Height 171.2 cm (5' 7.4) 12/10/2022 7:55 AM CDT Body Mass Index 35.04 12/10/2022 7:55 AM CDT documented in this encounter H&P Notes * Matthew Mayes M.D. - 12/10/2022 8:00 AM CDT REFERRAL SOURCE Janusz Govea M.B.B.S. [address] [place] [phone] CHIEF COMPLAINT / REASON FOR VISIT Pulmonary hypertension HISTORY OF PRESENT ILLNESS Ms. Dobbs is a pleasant 52-year-old woman with myelofibrosis diagnosed in August 2015 with hospitalization in May 2021 with right heart failure diagnosed with pulmonary hypertension with severe secondary tricuspid regurgitation at that time. She was treated with diuretics and then in October of 2021 underwent right heart catheterization demonstrating preserved cardiac index in setting of marked anemia, normal transhepatic gradient, [id number] tricuspid regurgitation based on concomitant echo imaging and normal right and left heart filling pressures. PVR was 3.2 and improved modestly with inhaled nitric oxide. She was seen in the Pulmonary hypertension Clinic and initiated on sildenafil in November of 2021. She comes accompanied by her Gian today and neither of them have any recollection about this medication. It appears she had a prescription for it between November and February of 2022 and perhaps just did not refill it but as stated really has no recollection about it. In any case she seems to be doing okay with regard to her breathing; she notes increased dyspnea and fatigue when she gets to a hemoglobin less than 8 and then improved with transfusion. She is not having any major issues of fluid retention on current diuretic dosing though sometimes feels her hands get a bit puffy. She has been having joint aching that may relate to her myelofibrosis. She notes some periodic numbness/tingling in her hands and wrists and lower arms and notes this more when her arms have been propped up suggesting potentially some ulnar nerve compression. The following portions of the patient's history were reviewed and updated as appropriate: allergies, current medications, family history, medical history, social history, surgical history, problem list, labs, diagnostics tests.. I also reviewed pertinent clinical notes in the electronic health record. REVIEW OF SYSTEMS A comprehensive review of systems was completed; pertinent abnormalities are included in the History of Present Illness. MEDICATIONS Current Medications: acetaminophen (TYLENOL) 500 mg tablet, Take 2 tablets (1,000 mg total) by mouth every 6 (six) hoursas needed for pain (Do not exceed 4000mg/day.). allopurinoL (ZYLOPRIM) 300 mg tablet, TAKE 1 TABLET BY MOUTH DAILY buPROPion XL (WELLBUTRIN XL) 150 mg 24 hr tablet, calcium acetate,phosphat bind, (PHOSLO) 667 mg (169 mg calcium) capsule, TAKE 2 CAPSULES BY MOUTH THREE TIMES DAILY cyanocobalamin (VITAMIN B12) 100 mcg tablet, Take 100 mcg by mouth once a week. Mondays enoxaparin (LOVENOX) 100 mg/mL injection, Inject 0.9 mL (90 mg total) under the skin 2 (two) times a day for 18 days. Continue medication until follow up appointments. Do not stop. hydroxyurea (HYDREA) 500 mg capsule, Take 1 capsule (500 mg total) by mouth 2 (two) times a day. Take at the same time each day. LORazepam (ATIVAN) 0.5 mg tablet, Take 1-2 mg by mouth at bedtime as needed for anxiety or sleep. morphine (MS CONTIN) 15 mg ER tablet, TAKE 1 TABLET BY MOUTH EVERY 12 HOURS FOR PAIN morphine (MS CONTIN) 30 mg ER tablet, 2 (two) times a day. Morphine 15 mg, Bupivacaine 10 mg/mL INTRATHECAL, 15 mg 2 (two) times a day. oxyCODONE (ROXICODONE) 5 mg immediate release tablet, Take 1 tablet (5 mg total) by mouth 2 (two) times a day Indication: Acute Pain Exception. (Patient taking differently: Take 5 mg by mouth as needed Indication: Acute Pain Exception.) sennosides (SENOKOT) 8.6 mg tablet, Take 1 tablet by mouth 2 (two) times a day. sodium-potassium bicarbonate (VASYL-SELTZER GOLD) 344-1,050-1,000 mg tablet, effervescent, Take 1 tablet by mouth daily as needed (upset stomach). torsemide (DEMADEX) 20 mg tablet, Take 1 tablet (20 mg total) by mouth daily. (Patient taking differently: Take 20 mg by mouth every morning. May take an additional dose in the evening if needed for swelling) UNABLE TO FIND, Med Name: Cannabis- patient's reports this is newly prescribed for her and as of 03/11/22, has not yet started. Reports patient will have gummies as well as a tablet, have not picked these up yet. Strength of these is not known because they are new for her. VITALS Height 171.2 cm weight 102.7 kilos O2 sat 95% pulse 74 regular BP 114/71 PHYSICAL EXAMINATION General: Bright and alert Psychiatric: Normal mood and affect Skin: No features of connective tissue disease. Eyes: Non-icteric Vessels: Central venous pressure is normal Heart: S1, S2 with II/ systolic murmur LLSB Lungs: Clear to auscultation bilaterally. Abdomen: Soft, non-tender, without palpable liver or spleen enlargement. Extremities: No edema DIAGNOSTIC REVIEW All labs and diagnostic studies were reviewed. [facility]HC November 07, 2021 Biventricular filling pressures varied but were still within the normal range (RA 4-8 mmHg; PAWP 4-12). Mean PA pressure was mildly elevated at 34 mmHg, yielding a mild-moderately increased PVR (3.2 GARIBAY). Cardiac index was normal at 3.3 l/min/m2. Transhepatic gradient was normal at 2 mmHg (HVWP 12, HV 10). There was mild systemic desaturation based on pulse oximetry (93%). Concomitant TTE showed mild-moderate tricuspid regurgitation at most. NO 80 PPM: Mean PA pressure decreased to 23 mmHg while PAWP was 7 mmHg and right atrial pressure 4 mmHg. Cardiac index decreased to 2.8 l/min/m2 a calculated PVR of 2.7 GARIBAY. SUMMARY: Findings are consistent with 1) mild pre capillary pulmonary hypertension with normal biventricularfilling pressures; 2) normal cardiac index in the setting of marked anemia; 3) no evidence of portal hypertension; 4) improvement in PA pressures and PVR with NO. 6 min walk 402 m normal sats; had been 421 m in July 2021 Echo 1. Severely enlarged right ventricular chamber size, [...] most. The velocities across the mitral valve areincreased, likely secondary due to chronic anemia. The lateral E/e' is relatively normal. 7. Mild tricuspid valve regurgitation. 8. No pericardial effusion. The estimate of RV systolic pressure could be an overestimate given her anemia. Lab work on December 06 that demonstrated hemoglobin 8.0 WBC 22.0 platelets 1.012 million she had whatappeared to be pseudo hyperkalemia and actually got sent to the emergency room by someone who saw those labs. She has no reason to have high potassium aside from blood dyscrasia causing pseudo hyperkalemia. 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 If she were to have progression of RV dysfunction we could consider it in future. From a cardiac perspective I think she could tolerate a stem cell transplant though thus far she has not been interested in pursuing that. We will plan to see her again in approximately 6 months. I did discuss her situation today with herhematologist Dr. Govea who is going to have her check a plasma free potassium today which we expect will be normal. It was a pleasure to see Jennifer and her Gian today. Matthew Mayes M.D. 12/10/2022 documented in this encounter Plan of Treatment Scheduled Referrals Name Type Priority Associated Diagnoses Order Schedule Cardiovascular Disease office visit (clinic) General Outpatient Referral Routine Hypertension Pulmonary (HCC) Myelofibrosis (HCC) Dyspnea On Exertion Expected: 06/30/2023 (Approximate), Expires: 12/05/2023 documented as of this encounter Results * 6 MINUTE WALK (07/30/2023 12:30 PM COMMUNICATIONS MEDIA PROFESSOR) Narrative Linn Rey P.A.-C., M.S. - 07/30/2023 12:30 PM COMMUNICATIONS MEDIA PROFESSOR Linn Rey P.A.-C., M.S. ? 07/31/2023 11:51 [...] - Somewhat Severe Time of Test: ??12:30 COMMUNICATIONS MEDIA PROFESSOR Total Distance Walked (Feet): ??1360 Total Distance Walked (Meters): ??414.53 Total # of Times Stopped: ??0 Time Stopped (Seconds): ??0 Time Walked (Seconds): ??360 CALCULATIONS Estimated MPH: ??2.6 Estimated METs: ??2.99 % of Predicted Distance: ??87.65 Matthew P Gerber M.D. CV STRESS PROCEDURE S * (TTE) 2D ECHO DOPPLER COLOR (07/30/2023 11:41 AM COMMUNICATIONS MEDIA PROFESSOR) Ejection Fraction 59 MC CV EIMS Mid-Ascending [...] Laterality Modality Echocardiography 07/30/2023 10:3 0 AM COMMUNICATIONS MEDIA PROFESSOR Impressions 07/30/2023 12:23 PM COMMUNICATIONS MEDIA PROFESSOR Anemia, thyrotoxicosis, or another high output state [...] the Order-Level Documents. Narrative 07/30/2023 12:23 PM COMMUNICATIONS MEDIA PROFESSOR For the complete report, see the Order-Level [...] regionalwall motion abnormalities, calculated 3-D volumetric ejection [id number]%. 2. Severely enlarged right ventricular chamber size, [...] Matthew Mayes M.D. CV ECHO PROCEDURES * Potassium, Plasma (07/30/2023 10:00 AM COMMUNICATIONS MEDIA PROFESSOR) [facility] Potassium, P 4.3 3.6 - 5.2 mmol/L 07/30/2023 10:51 AM COMMUNICATIONS MEDIA PROFESSOR DT Blood (Blood, Venous) 07/30/2023 10:00 AM COMMUNICATIONS MEDIA PROFESSOR 07/30/2023 10:34 AM COMMUNICATIONS MEDIA PROFESSOR Matthew Mayes M.D. LAB BLOOD ADD-ON [facility] [address] [place] [address], [facility] [address] [place] [address] * (ABNORMAL) NT-Pro B-Type Natriuretic Peptide (BNP) (07/30/2023 10:00 AM COMMUNICATIONS MEDIA PROFESSOR) [facility] NT-Pro BNP 3475(H) <=226 pg/mL 07/30/2023 11:09 AM COMMUNICATIONS MEDIA PROFESSOR DT Comment: NT-proBNP values less than 300 pg/mL [...] failure. Blood (Blood, Venous) 07/30/2023 10:00 AM COMMUNICATIONS MEDIA PROFESSOR 07/30/2023 10:34 AM COMMUNICATIONS MEDIA PROFESSOR Matthew Mayes M.D. LAB BLOOD ADD-ON Performing Organization Address City/[facility]/[place] [address] * Thyroid Function [employer] (07/30/2023 10:00 AM COMMUNICATIONS MEDIA PROFESSOR) [facility] TSH, Sensitive 2.1 0.3 - 4.2 mIU/L 07/30/2023 11:09 AM COMMUNICATIONS MEDIA PROFESSOR DT Blood (Blood, Venous) 07/30/2023 10:00 AM COMMUNICATIONS MEDIA PROFESSOR 07/30/2023 10:34 AM COMMUNICATIONS MEDIA PROFESSOR Matthew Mayes M.D. LAB BLOOD ADD-ON Performing Organization Address City/[facility]/ZIP Co de Phone Number [facility] 200 [place] [address] * (ABNORMAL) BUN (Blood Urea Nitrogen) (07/30/2023 10:00 AM COMMUNICATIONS MEDIA PROFESSOR) [facility] BUN (Blood Urea Nitrogen), S 24(H) 6 - 21 mg/dL 07/30/2023 11:09 AM COMMUNICATIONS MEDIA PROFESSOR DT Blood (Blood, Venous) 07/30/2023 10:00 AM COMMUNICATIONS MEDIA PROFESSOR 07/30/2023 10:34 AM COMMUNICATIONS MEDIA PROFESSOR Matthew Mayes M.D. LAB BLOOD ADD-ON Performing Organization Address City/[facility]/ZIP Co de Phone Number [facility] [address] [place] [phone] [place] [address] 200 [place] [address] * Bilirubin, Total (07/30/2023 10:00 AM COMMUNICATIONS MEDIA PROFESSOR) Bilirubin, Total, S 0.4 0.0 - 1.2 mg/dL 07/30/2023 11:09 AM COMMUNICATIONS MEDIA PROFESSOR DTL Blood (Blood, Venous) 07/30/2023 10:00 AM COMMUNICATIONS MEDIA PROFESSOR 07/30/2023 10:34 AM COMMUNICATIONS MEDIA PROFESSOR Matthew Mayes M.D. LAB BLOOD ADD-ON Performing Organization Address [facility] Co de Phone Number [facility] [address] [place], [place] [phone] [place] [address] 200 [place] [address] * (ABNORMAL) Alkaline Phosphatase (07/30/2023 10:00 AM COMMUNICATIONS MEDIA PROFESSOR) Alkaline Phosphatase, S 209(H) 35 - 104 U/L 07/30/2023 11:09 AM COMMUNICATIONS MEDIA PROFESSOR DTL Blood (Blood, Venous) 07/30/2023 10:00 AM COMMUNICATIONS MEDIA PROFESSOR 07/30/2023 10:34 AM COMMUNICATIONS MEDIA PROFESSOR Matthew Mayes M.D. LAB BLOOD ADD-ON Performing Organization Address City/[facility]/ZIP Co de Phone Number [facility] [address] [place] [place] [phone] [place] [address] 200 [place] [address] * (ABNORMAL) AST (Aspartate Aminotransferase) (07/30/2023 10:00 AM COMMUNICATIONS MEDIA PROFESSOR) Aspartate Aminotransferase (AST), S 45(H) 8 - 43 U/L 07/30/2023 11:09 AM COMMUNICATIONS MEDIA PROFESSOR DTL Blood (Blood, Venous) 07/30/2023 10:00 AM COMMUNICATIONS MEDIA PROFESSOR 07/30/2023 10:34 AM COMMUNICATIONS MEDIA PROFESSOR Matthew Mayes M.D. LAB BLOOD ADD-ON [facility] [address] [place] [address], [facility] [address] [place] [address] * (ABNORMAL) Creatinine with Estimated GFR (07/30/2023 10:00 AM COMMUNICATIONS MEDIA PROFESSOR) Creatinine 1.08(H) 0.59 - 1.04 mg/dL 07/30/2023 11:09 AM COMMUNICATIONS MEDIA PROFESSOR DTL Estimated GFR (eGFR) 61 >=60 mL/min/BSA 07/30/2023 11:09 AM COMMUNICATIONS MEDIA PROFESSOR DTL Comment: Estimated GFR calculated using the 2020 CKD_EPI creatinine equation. Blood (Blood, Venous) 07/30/2023 10:00 AM COMMUNICATIONS MEDIA PROFESSOR 07/30/2023 10:34 AM COMMUNICATIONS MEDIA PROFESSOR Matthew Mayes M.D. LAB BLOOD ADD-ON Performing Organization Address City/[facility]/ZIP Co de Phone Number [facility] [address] [place], [place] [address] [address] [place] [address] * Sodium (07/30/2023 10:00 AM COMMUNICATIONS MEDIA PROFESSOR) Sodium, S 142 135 - 145 mmol/L 07/30/2023 11:09 AM COMMUNICATIONS MEDIA PROFESSOR DTL Blood (Blood, Venous) 07/30/2023 10:00 AM COMMUNICATIONS MEDIA PROFESSOR 07/30/2023 10:34 AM COMMUNICATIONS MEDIA PROFESSOR Matthew Mayes M.D. LAB BLOOD ADD-ON [facility] [address] [place] [address], [facility] 200 [place] [address] * (ABNORMAL) CBC with Differential, Blood (07/30/2023 10:00 AM COMMUNICATIONS MEDIA PROFESSOR) Hemoglobin 7.7(L) 11.6 - 15.0 g/dL 07/30/2023 10:32 AM COMMUNICATIONS MEDIA PROFESSOR DTL Hematocrit 26.1(L) 35.5 - 44.9 % 07/30/2023 10:32 AM COMMUNICATIONS MEDIA PROFESSOR DTL Erythrocytes 2.72(L) 3.92 - 5.13 x10(12)/L 07/30/2023 10:32 AM COMMUNICATIONS MEDIA PROFESSOR DTL MCV 96.0 78.2 - 97.9 fL 07/30/2023 10:32 AM COMMUNICATIONS MEDIA PROFESSOR DTL RBC Distrib Width 25.2(H) 12.2 - 16.1 % 07/30/2023 10:32 AM COMMUNICATIONS MEDIA PROFESSOR DTL Platelet Count 682(H) 157 - 371 x10(9)/L 07/30/2023 10:32 AM COMMUNICATIONS MEDIA PROFESSOR DTL Leukocytes 20.4(H) 3.4 - 9.6 x10(9)/L 07/30/2023 11:46 AM COMMUNICATIONS MEDIA PROFESSOR DTL Comment:Corrected for normob lasts. Neutrophils See Comment 1.56 - 6.45 x10(9)/L 07/30/2023 11:46 AM COMMUNICATIONS MEDIA PROFESSOR [facility] Comment:Auto-diff results no t valid. See manual differential. Blood (Blood, Venous) 07/30/2023 10:00 AM COMMUNICATIONS MEDIA PROFESSOR 07/30/2023 10:22 AM COMMUNICATIONS MEDIA PROFESSOR Matthew Mayes M.D. LAB BLOOD ADD-ON [facility] [address] [place] [address], [facility] DTL [facility] [address] [place] [address] [facility] 200 [place] [address] documented in this encounter Visit Diagnoses Diagnosis Myelofibrosis (HCC)- Primary Hypertension Pulmonary (HCC) Dyspnea On Exertion Hypertension Pulmonary (HCC) Myelofibrosis (HCC) Dyspnea On Exertion Hypertension Pulmonary (HCC) Myelofibrosis (HCC) Dyspnea On Exertion documented in this encounter Care Teams Regulatory Affairs Consultant Relationship Specialty Start Date End Date Elsewhere, Pcp PCP - General 11/04/21 documented as of this encounter
--- OUTSIDE RECORDS SUMMARY | 2023-08-21 10:26 | XMS_ITS | Encounter Summary ---
Author Name Unknown Organization [facility] Address [address] [place] [address] Care Team Providers Care Hip Hop Dancer Name Role Phone Elsewhere, Pcp Primary Care Provider Unavailabl e Reason for Visit * Reason Onset Date Comments External Lab Entry 11/19/2022 Encounter Details Date Type Department Care Team (Latest Contact Info) Description 11/19/2022 Clinical Communication Division of Hematology in [place], [place] [address] [place] [phone] Janusz Govea M.B.BZahraaS. [address] [place] [phone] External Lab Entry Social History Tobacco Use [...] Sex Assigned at Female 07/24/2021 11:03 AM AUTOMOTIVE CUSTOMER EXPERIENCE ADVISOR Gender Identity Female 07/24/2021 11:03 AM AUTOMOTIVE CUSTOMER EXPERIENCE ADVISOR Sexual Orientation Straight 07/24/2021 11 :03 AM AUTOMOTIVE CUSTOMER EXPERIENCE ADVISOR documented as of this encounter Miscellaneous Notes * Telephone Encounter - Leann Marroquin - 11/19/2022 3:26 PM CDT Outside labs collected on 11/19/2022 have been received. The fax has been scanned into the patient record via exozet, and the CBC results are as noted below. Hemoglobin: 7.5 Hematocrit: 25.5 WBC: 70.45 ANC: 15.70 Platelets: 950 Please note: Are there additional labs reported on the outside report? No documented in this encounter Plan of Treatment Not on file documented as of this encounter Visit Diagnoses Not on filedocumented in this encounter Care Teams Hip Hop Dancer Relationship Specialty Start Date End Date Elsewhere, Pcp PCP - General 11/04/21 documented as of this encounter
--- OUTSIDE RECORDS SUMMARY | 2023-08-21 10:26 | XMS_ITS | Encounter Summary ---
Author Name Unknown Organization [facility] Address [address] [place] [address] Care Team Providers Care Route Service Manager Name Role Phone Elsewhere, Pcp Primary Care Provider Unavailabl e Reason for Visit * Reason Onset Date Comments External Lab Entry 11/25/2022 Encounter Details Date Type Department Care Team (Latest Contact Info) Description 11/25/2022 Clinical Communication Division of Hematology in [place], [place] [address] [place] [phone] Janusz Govea M.B.BZahraaS. [address] [place] [phone] External Lab Entry Social History Tobacco Use [...] Assigned at Female 07/24/2021 11:03 AM MANAGER MASSAGE DEPARTMENT Gender Identity Female 07/24/2021 11:03 AM MANAGER MASSAGE DEPARTMENT Sexual Orientation Straight 07/24/2021 11 :03 AM MANAGER MASSAGE DEPARTMENT documented as of this encounter Miscellaneous Notes * Telephone Encounter - Leann Marroquin - 11/26/2022 2:26 PM CDT Type and Screen, Transfusion (11/26/2022) outside labs collected on 11/25/2022 have been received. The fax has been scanned into the patient record via [employer]. * Telephone Encounter - Jennifer Peralta - 11/25/2022 2:34 PM CDT Outside labs collected on 11/25/5022 have been received. The fax has been scanned into the patient record via [employer], and the CBC results are as noted below. Hemoglobin: 7.0 Hematocrit: 23.8 WBC: 60.39 ANC: 20.50 Platelets: 938 Please note: Are there additional labs reported on the outside report? No documented in this encounter Plan of Treatment Not on file documented as of this encounter Visit Diagnoses Not on filedocumented in this encounter Care Teams Route Service Manager Relationship Specialty Start Date End Date Elsewhere, Pcp PCP - General 11/04/21 documented as of this encounter
--- OUTSIDE RECORDS SUMMARY | 2023-08-21 10:26 | XMS_ITS | Encounter Summary ---
Author Name Unknown Organization [facility] Address [address] [place] [address] Care Team Providers Care Armor Reconnaissance Vehicle Driver Name Role Phone Elsewhere, Pcp Primary Care Provider Unavailabl e Encounter Details Date Type Department Care Team (Latest Contact Info) Description 12/06/2022 Clinical Communication Department of Cardiovascular Medicine in [place], [place] [address] [place] [phone] Annamaria Gomes APRN, C.N.P. [address] [place] [phone] Social History Tobacco Use Types Packs/Day Years [...] Sex Assigned at Female 07/24/2021 11:03 AM BURLAP BAG SEWER Gender Identity Female 07/24/2021 11:03 AM BURLAP BAG SEWER Sexual Orientation Straight 07/24/2021 11 :03 AM BURLAP BAG SEWER documented as of this encounter Miscellaneous Notes * Telephone Encounter - Annamaria Gomes APRN, C.N.P. - 12/06/2022 7:42 PM CDT I received a call from the lab regarding patient's potassium level of 6.0. Mrs. Dobbs is followed in the Pulmonary hypertension Clinic, her next appointment isn't until 12/10/2022. I contacted the PH clinic and notified them of her completed labs, including the abnormal results. I also contacted the patient and directed her to go the nearest emergency department for recheck ofher potassium level and other testing and treatment as needed, to which she was agreeable. documented in this encounter Plan of Treatment Not on file documented as of this encounter Visit Diagnoses Not on filedocumented in this encounter Care Teams Armor Reconnaissance Vehicle Driver Relationship Specialty Start Date End Date Elsewhere, Pcp PCP - General 11/04/21 documented as of this encounter
--- OUTSIDE RECORDS SUMMARY | 2023-08-21 10:26 | XMS_ITS | Encounter Summary ---
Author Name Unknown Organization [facility] Address [address] [place] [address] Care Team Providers Care Magnetic Tape Typewriter Operator Name Role Phone Elsewhere, Pcp Primary Care Provider Unavailabl e Reason for Visit * Reason Onset Date Comments External Lab Entry 10/08/2022 Encounter Details Date Type Department Care Team (Latest Contact Info) Description 10/10/2022 Clinical Communication Division of Hematology in [place], [place] [address] [place] [phone] Janusz Govea M.B.BZahraaS. [address] [place] [phone] External Lab Entry Social History Tobacco Use [...] Sex Assigned at Female 07/24/2021 11:03 AM TOOLS PROGRAMMER Gender Identity Female 07/24/2021 11:03 AM TOOLS PROGRAMMER Sexual Orientation Straight 07/24/2021 11 :03 AM TOOLS PROGRAMMER documented as of this encounter Miscellaneous Notes * Telephone Encounter - Jocelyne Lang - 10/10/2022 9:10 AM CDT RBC transfusion report - outside labs collected on 10/08/2022 have been received. The fax has been scanned into the patient record via [employer]. documented in this encounter Plan of Treatment Not on file documented as of this encounter Visit Diagnoses Not on filedocumented in this encounter Care Teams Magnetic Tape Typewriter Operator Relationship Specialty Start Date End Date Elsewhere, Pcp PCP - General 11/04/21 documented as of this encounter
--- OUTSIDE RECORDS SUMMARY | 2023-08-21 10:26 | XMS_ITS | Encounter Summary ---
Author Name Unknown Organization [facility] Address [address] [place] [address] Care Team Providers Care Composer Teaching Artist Name Role Phone Elsewhere, Pcp Primary Care Provider Unavailabl e Encounter Details Date Type Department Care Team (Late st Contact Info) Description 12/06/2022 10:30 AM CDT - 12/06/2022 10:59 AM CDT Hospital Encounter Department of Laboratory Medicine and Pathology, [facility] in [place], [place] [address] [place] [phone] Charity Tijerina M.B.BZahraaS. [address] [place] [phone] Hypertension Pulmonary Primary (HCC) Discharge Disposition: Home [...] Sex Assigned at Female 07/24/2021 11:03 AM PARENT EDUCATOR Gender Identity Female 07/24/2021 11:03 AM PARENT EDUCATOR Sexual Orientation Straight 07/24/2021 11 :03 AM PARENT EDUCATOR documented as of this encounter Medications at [...] Date/Time Associated Diagnosis Comments SPSMA RESULT Routine 12/06/2022 10:52 AM CDT NT-PRO B-TYPE NATRIURETIC PEPTIDE (BNP), S Routine 12/06/2022 10:52 AM CDT Hypertension Pulmonary Primary (HCC) CBC WITH DIFFERENTIAL, B Routine 12/06/2022 10:52 AM CDT Hypertension Pulmonary Primary (HCC) BASIC METABOLIC PANEL, S/P Routine 12/06/2022 10:52 AM CDT Hypertension Pulmonary Primary (HCC) documented in this encounter Results * (ABNORMAL) SPSMA Result (12/06/2022 10:52 AM CDT) Neutrophilic Segs and Bands 69 50 - 75 % 12/06/2022 12:25 PM CDT [facility] Lymphocytes 10(L) 18 - 42 % 12/06/2022 12:25 PM CDT [facility] Monocytes 8 2 - 11 % 12/06/2022 12:25 PM CDT [facility] Eosinophils 5(H) 1 - 3 % 12/06/2022 12:25 PM CDT [facility] Metamyelocytes 1(H) <1 % 12/06/2022 12:25 PM CDT [facility] Myelocytes 7(H) <0.5 % 12/06/2022 12:25 PM CDT [facility] Megakaryocytes 3(H) <1 /100 WBC 12/06/2022 12:25 PM CDT [facility] Nucleated RBC 165 /100 WBC 12/06/2022 12:25 PM CDT [facility] Manual Absolute Neutrophil Count 15.18(H) 1.56 - 6.45 x10(9)/L 12/06/2022 12:25 PM CDT [facility] Comment: ----ADDITIONAL INFORMATION---- The manual absolute neutrophil count is derived from a manual differential count and therefore is not exactly comparable to the automated absolute neutrophil count. Blood 12/06/2022 10:5 2 AM CDT 12/06/2022 11:15 AM CDT Charity Ardon LAB BLOOD ADD-ON [facility] [address] [place] [address], [facility] [address] [place] [address] * (ABNORMAL) CBC with Differential, Blood (12/06/2022 10:52 AM CDT) Hemoglobin 8.0(L) 11.6 - 15.0 g/dL 12/06/2022 11:24 AM CDT [facility] Hematocrit 27.3(L) 35.5 - 44.9 % 12/06/2022 11:26 AM CDT [facility] Erythrocytes 2.63(L) 3.92 - 5.13 x10(12)/L 12/06/2022 11:26 AM CDT [facility] MCV 103.8(H) 78.2 - 97.9 fL 12/06/2022 11:26 AM CDT [facility] RBC Distrib Width 37.5(H) 12.2 - 16.1 % 12/06/2022 11:24 AM CDT [facility] Platelet Count 1012(CH) 157 - 371 x10(9)/L 12/06/2022 12:25 PM CDT [facility] Comment:Large platelets - co unt approximate. Leukocytes 22.0(H) 3.4 - 9.6 x10(9)/L 12/06/2022 12:25 PM CDT [facility] Comment:Corrected for normob lasts. Neutrophils SeeComment 1.56 - 6.45 x10(9)/L 12/06/2022 12:25 PM CDT [facility] Comment:Auto-diff results no t valid. See manual differential. Blood (Blood, Venous) 12/06/2022 10:52 AM CDT 12/06/2022 11:15 AM CDT Charity Ardon LAB BLOOD ADD-ON [facility] [address] [place] [address], [place] DTL [facility] [address] [place] [address] [facility] 200 [place] [address] * (ABNORMAL) Basic Metabolic Panel (12/06/2022 10:52 AM CDT) [facility] Potassium, S 6.0(CH) 3.6 - 5.2 mmol/L 12/06/2022 11:54 AM CDT [facility] Sodium, S 141 135 - 145 mmol/L 12/06/2022 11:54 AM CDT [facility] Chloride, S 102 98 - 107 mmol/L 12/06/2022 11:54 AM CDT [facility] Bicarbonate, S 26 22 - 29 mmol/L 12/06/2022 11:54 AM CDT [facility] Anion Gap 13 7 - 15 12/06/2022 11:54 AM CDT [facility] BUN (Blood Urea Nitrogen), S 28(H) 6 - 21 mg/dL 12/06/2022 11:54 AM CDT DTL Creatinine 1.07(H) 0.59 - 1.04 mg/dL 12/06/2022 11:54 AM CDT DTL Estimated GFR (eGFR) 62 >=60 mL/min/BSA 12/06/2022 11:54 AM CDT [facility] Comment: Estimated GFR calculated using the 2020 CKD_EPI creatinine equation. Calcium, Total, S 9.2 8.6 - 10.0 mg/dL 12/06/2022 11:54 AM CDT D[facility] Glucose, S 102 70 - 140 mg/dL 12/06/2022 11:54 AM CDT D[facility] Blood (Blood, Venous) 12/06/2022 10:52 AM CDT 12/06/2022 11:27 AM CDT Charity Ardon LAB BLOOD ADD-ON [facility] 200 [place] [address], [facility] 200 [place] [address] * (ABNORMAL) NT-Pro B-Type Natriuretic Peptide (BNP) (12/06/2022 10:52 AM CDT) NT-Pro BNP 1957(H) <=141 pg/mL 12/06/2022 11:54 AM CDT [facility] Comment: NT-proBNP values less than 300 [...] absence of renal failure. Blood (Blood, Venous) 12/06/2022 10:52 AM CDT 12/06/2022 11:27 AM CDT Charity Ardon LAB BLOOD ADD-ON [facility] [address] [place] [address], [facility] 200 [place] [address] documented in this encounter Visit Diagnoses Diagnosis Hypertension Pulmonary Primary (HCC) documented in this encounter Care Teams Composer Teaching Artist Relationship Specialty Start Date End Date Elsewhere, Pcp PCP - General 11/04/21 documented as of this encounter
--- OUTSIDE RECORDS SUMMARY | 2023-08-21 10:27 | XMS_ITS | Encounter Summary ---
Author Name Unknown Organization [facility] Address [address] [place] [address] Care Team Providers Care Green End Worker Name Role Phone Elsewhere, Pcp Primary Care Provider Unavailabl e Reason for Visit * Reason Onset Date Comments lab redraw 10/01/2022 Encounter Details Date Type Department Care Team (Late st Contact Info) Description 10/01/2022 Clinical Communication Division of Hematology in [place], [place] [address] [place] [phone] Isidro Zamarripa M.B., B.Ch. [address] [place] [phone] lab redraw Social History Tobacco Use Types Packs/Day Years [...] Sex Assigned at Female 07/24/2021 11:03 AM TRIM SETTER Gender Identity Female 07/24/2021 11:03 AM TRIM SETTER Sexual Orientation Straight 07/24/2021 11 :03 AM TRIM SETTER documented as of this encounter Miscellaneous Notes * Telephone Encounter - Johanny Franklin - 10/01/2022 8:13 AM CDT Thania RN called from [facility] to inform Lynette RN that SPSMA lab was sent out incorrectly. Patient will be redrawn on 10/03. Thank you Johanny [facility] documented in this encounter Plan of Treatment Not on file documented as of this encounter Visit Diagnoses Not on filedocumented in this encounter Care Teams Green End Worker Relationship Specialty Start Date End Date Elsewhere, Pcp PCP - General 11/04/21 documented as of this encounter
--- OUTSIDE RECORDS SUMMARY | 2023-08-21 10:27 | XMS_ITS | Encounter Summary ---
Author Name Unknown Organization [facility] Address [address] [place] [address] Care Team Providers Care Vendor Specialist Name Role Phone Elsewhere, Pcp Primary Care Provider Unavailabl e Reason for Visit * Reason Onset Date Comments Pre-visit Intake 09/16/2022 Encounter Details Date Type Department Care Team (Latest Contact Info) Description 09/16/2022 11:00 AM DINKEY BRAKEMAN Clinical Communication Virtual Review in [place], [place] [address] [place], [place] [phone] Pre-visit Intake Social History Tobacco Use Types [...] Sex Assigned at Female 07/24/2021 11:03 AM DINKEY BRAKEMAN Gender Identity Female 07/24/2021 11:03 AM DINKEY BRAKEMAN Sexual Orientation Straight 07/24/2021 11 :03 AM DINKEY BRAKEMAN documented as of this encounter Plan of Treatment Not on file documented as of this encounter Visit Diagnoses Not on filedocumented in this encounter Care Teams Vendor Specialist Relationship Specialty Start Date End Date Elsewhere, Pcp PCP - General 11/04/21 documented as of this encounter
--- OUTSIDE RECORDS SUMMARY | 2023-08-21 10:27 | XMS_ITS | Encounter Summary ---
Author Name Unknown Organization [facility] Address [address] [place] [address] Care Team Providers Care Library Attendant Name Role Phone Elsewhere, Pcp Primary Care Provider Unavailabl e Reason for Referral * Outpatient (Routine) - Closed Specialty Diagnoses / Procedures Referred By Contact Referred To Contact Cardiovascular Diseases / Cardiovascular Disease Diagnoses Hypertension Pulmonary (HCC) Janusz Govea M.B.B.S. [address] [place] [phone] [facility] Referral ID Status Reason Start Date Expiration Date Visits Re quested Visits Authorized [id number] Closed 09/18/2022 09/18/2023 1 1 SHEEP FARMER Encounter Details Date Type Department Care Team (Late st Contact Info) Description 09/18/2022 Orders Only Division of Hematology in [place], [place] [address] [place] [phone] Janusz Govea M.B.B.S. [address] [place] [phone] Hypertension Pulmonary (HCC) (Primary Dx) Social History Tobacco Use [...] Sex Assigned at Female 07/24/2021 11:03 AM STUD SHEEP FARMER Gender Identity Female 07/24/2021 11:03 AM STUD SHEEP FARMER Sexual Orientation Straight 07/24/2021 11 :03 AM STUD SHEEP FARMER documented as of this encounter Plan of Treatment Scheduled Referrals Name Type Priority Associated Diagnoses Order Schedule Cardiovascular Disease - General cardiology consult (clinic) Outpatient Referral Routine Hypertension Pulmonary (HCC) Expected: 09/18/2022 (Approximate), Expires: 12/20/2023 documented as of this encounter Visit Diagnoses Diagnosis Hypertension Pulmonary (HCC)- Primary documented in this encounter Care Teams Library Attendant Relationship Specialty Start Date End Date Elsewhere, Pcp PCP - General 11/04/21 documented as of this encounter
--- OUTSIDE RECORDS SUMMARY | 2023-08-21 10:27 | XMS_ITS | Encounter Summary ---
Author Name Unknown Organization [facility] Address [address] [place] [address] Care Team Providers Care Brown Stock Washer Name Role Phone Elsewhere, Pcp Primary Care Provider Unavailabl e Encounter Details Date Type Department Care Team ([facility] st Contact Info) Description 09/18/2022 Clinical Communication Division of Hematology in [place], [place] [address] [place] [phone] Isidro Zamarripa M.B., B.Ch. [address] [place] [phone] Social History Tobacco Use Types Packs/Day Years [...] Sex Assigned at Female 07/24/2021 11:03 AM DETHISTLER OPERATOR Gender Identity Female 07/24/2021 11:03 AM DETHISTLER OPERATOR Sexual Orientation Straight 07/24/2021 11 :03 AM DETHISTLER OPERATOR documented as of this encounter Miscellaneous Notes * Telephone Encounter - Kamla Patel R.N. - 09/18/2022 2:58 PM DETHISTLER OPERATOR Results inquiry called with a critically high PLT count of 1113. ISTLER OPERATOR documented in this encounter Plan of Treatment Not on file documented as of this encounter Visit Diagnoses Not on filedocumented in this encounter Care Teams Brown Stock Washer Relationship Specialty Start Date End Date Elsewhere, Pcp PCP - General 11/04/21 documented as of this encounter
--- OUTSIDE RECORDS SUMMARY | 2023-08-21 10:27 | XMS_ITS | Encounter Summary ---
Author Name Unknown Organization [facility] Address [address] [place] [address] Care Team Providers Care Ice Rink Attendant Name Role Phone Elsewhere, Pcp Primary Care Provider Unavailabl e Reason for Visit * Reason Onset Date Comments External Lab Entry 08/22/2022 Encounter Details Date Type Department Care Team (Latest Contact Info) Description 08/22/2022 Clinical Communication Division of Hematology in [place], [place] [address] [place] [phone] Janusz Govea M.B.BZahraaS. [address] [place] [phone] External Lab Entry Social History Tobacco Use [...] Sex Assigned at Female 07/24/2021 11:03 AM SKULL CHOPPER Gender Identity Female 07/24/2021 11:03 AM SKULL CHOPPER Sexual Orientation Straight 07/24/2021 11 :03 AM SKULL CHOPPER documented as of this encounter Plan of Treatment Not on file documented as of this encounter Visit Diagnoses Not on filedocumented in this encounter Care Teams Ice Rink Attendant Relationship Specialty Start Date End Date Elsewhere, Pcp PCP - General 11/04/21 documented as of this encounter
--- OUTSIDE RECORDS SUMMARY | 2023-08-21 10:27 | XMS_ITS | Encounter Summary ---
Author Name Unknown Organization [facility] Address [address] [place] [address] Care Team Providers Care Pattern Grader Name Role Phone Elsewhere, Pcp Primary Care Provider Unavailabl e Reason for Visit * Reason Onset Date Comments counts/colonoscopy 09/12/2022 Encounter Details Date Type Department Care Team (Latest Contact Info) Description 09/12/2022 Clinical Communication Division of Hematology in [place], [place] [address] [place] [phone] Janusz Govea M.B.B.S. [address] [place] [phone] counts/colonoscopy Social History Tobacco Use Types Packs/Day Years [...] Sex Assigned at Female 07/24/2021 11:03 AM COLD MEAT CHEF Gender Identity Female 07/24/2021 11:03 AM COLD MEAT CHEF Sexual Orientation Straight 07/24/2021 11 :03 AM COLD MEAT CHEF documented as of this encounter Miscellaneous Notes * Telephone Encounter - Mary Ann Shaver R.N. - 09/12/2022 11:00 AM COLD MEAT CHEF I spoke with Gian, and let him know I sent new transfusion parameters to [facility] for RBC to transfuse if hgb is < 7.5 (it was previously 7.0) per Dr. Govea. Patient was refused transfusion yesterday as her hgb was at 7.0, and patient reports she is symptomatic. He will call them and arrange her to receive one unit RBC's today or tomorrow. I also let him know Dr. Govea was ok with her proceeding with colonoscopy as planned. MEAT CHEF * Telephone Encounter - Johanny Franklin - 09/12/2022 9:28 AM CST Patient is due to have a colonoscopy at [facility] on September 16. Patient's hgb was 7 two days ago, and she was denied blood as she was not under the parameter. Patient is now feeling symptomatic: tired, not breathing very good She is wondering if it would be reasonable to get blood prior to the colonoscopy? Patient would like to inform Dr. Govea that she will be completely sedated for this procedure, is this reasonable for the patient? Please call to advise: [phone] Thank you Johanny [facility] MEAT CHEF documented in this encounter Plan of Treatment Not on file documented as of this encounter Visit Diagnoses Not on filedocumented in this encounter Care Teams Pattern Grader Relationship Specialty Start Date End Date Elsewhere, Pcp PCP - General 11/04/21 documented as of this encounter
--- OUTSIDE RECORDS SUMMARY | 2023-08-21 10:27 | XMS_ITS | Encounter Summary ---
Author Name Unknown Organization [facility] Address [address] [place] [address] Care Team Providers Care Snow Remover Name Role Phone Elsewhere, Pcp Primary Care Provider Unavailabl e Reason for Visit * Reason Onset Date Comments External Lab Entry 10/04/2022 Encounter Details Date Type Department Care Team (Latest Contact Info) Description 10/04/2022 Clinical Communication Division of Hematology in [place], [place] [address] [place] [phone] Janusz Govea M.B.BZahraaS. [address] [place] [phone] External Lab Entry Social History Tobacco Use [...] Sex Assigned at Female 07/24/2021 11:03 AM SENIOR SOFTWARE MANAGER Gender Identity Female 07/24/2021 11:03 AM SENIOR SOFTWARE MANAGER Sexual Orientation Straight 07/24/2021 11 :03 AM SENIOR SOFTWARE MANAGER documented as of this encounter Miscellaneous Notes * Telephone Encounter - Jocelyne Lang - 10/04/2022 2:23 PM CDT Outside labs collected on 10/04/2022 have been received. The fax has been scanned into the patient record via [employer], and the CBC results are as noted below. Hemoglobin: 7.3 Hematocrit: 25.2 WBC: 49.74 ANC: 5.7 Platelets: 1011 Please note: Are there additional labs reported on the outside report? No documented in this encounter Plan of Treatment Not on file documented as of this encounter Visit Diagnoses Not on filedocumented in this encounter Care Teams Snow Remover Relationship Specialty Start Date End Date Elsewhere, Pcp PCP - General 11/04/21 documented as of this encounter
--- OUTSIDE RECORDS SUMMARY | 2023-08-21 10:27 | XMS_ITS | Encounter Summary ---
Author Name Unknown Organization [facility] Address [address] [place] [address] Care Team Providers Care Basketball Coach Name Role Phone Elsewhere, Pcp Primary Care Provider Unavailabl e Encounter Details Date Type Department Care Team (Latest Contact Info) Description 09/18/2022 12:11 PM LINOTYPE WORKER - 09/18/2022 11:59 PM LINOTYPE WORKER Hospital Encounter Department of Laboratory Medicine and Pathology, [facility] in [place], [place] [address] [place] [phone] Isidro Zamarripa M.B., B.Ch. [address] [place] [phone] Myelofibrosis Primary (HCC) Discharge Disposition: Home or [...] Sex Assigned at Female 07/24/2021 11:03 AM LINOTYPE WORKER Gender Identity Female 07/24/2021 11:03 AM LINOTYPE WORKER Sexual Orientation Straight 07/24/2021 11 :03 AM LINOTYPE WORKER documented as of this encounter Medications at Time of Discharge Medication Sig Dispensed Refills Start Date End Date acetaminophen (TYLENOL) 500 mg tablet Take 2 tablets (1,000 mg total) by mouth every 6 (six) hours as needed for pain (Do not exceed 4000mg/day.). 0 03/18/2022 calcium acetate,phosphat bind, (PHOSLO) 667 mg (169 mg calcium) capsule TAKE 2 CAPSULES BY MOUTH THREE TIMES DAILY 540 capsule 0 08/14/2021 cyanocobalamin (VITAMIN B12) 100 mcg tablet Take 100 mcg by mouth once a week. Mondays 0 LORazepam (ATIVAN) 0.5 mg tablet Take 1-2 mg by mouth at bedtime as needed for anxiety or sleep. 0 morphine (MS CONTIN) 30 mg ER tablet [...] 05/06/2022 05/23/2023 hydroxyurea (HYDREA) 500 mg capsule TAKE 1 CAPSULE BY MOUTH TWICE DAILY. TAKE AT THE SAME TIME EACH DAY 180 capsule 1 04/16/2022 11/15/2022 documented as of this encounter Plan of Treatment Not on file documented as of this encounter Procedures Procedure Name Priority Date/Time Associated Diagnosis Comments SPSMA RESULT Routine 09/18/2022 12:20 PM LINOTYPE WORKER Myelofibrosis Primary (HCC) RETICULOCYTES, B Routine 09/18/2022 12:2 0 PM LINOTYPE WORKER Myelofibrosis Primary (HCC) CBC WITH DIFFERENTIAL, B Routine 023 12:20 PM LINOTYPE WORKER Myelofibrosis Primary (HCC) ALANINE AMINOTRANSFERASE (ALT), S/P Routine 09/18/2022 12:20 PM LINOTYPE WORKER Myelofibrosis Primary (HCC) ASPARTATE AMINOTRANSFERASE (AST), S/P Routine 09/18/2022 12:20 PM LINOTYPE WORKER Myelofibrosis Primary (HCC) SODIUM, S/P Routine 09/18/2022 12:20 PM LINOTYPE WORKER Myelofibrosis Primary (HCC) ALKALINE PHOSPHATASE, S/P Routine 09/18/2022 12:20 PM LINOTYPE WORKER Myelofibrosis Primary (HCC) LACTATE DEHYDROGENASE (LD), S Routine 09/18/2022 12:20 PM LINOTYPE WORKER Myelofibrosis Primary (HCC) FERRITIN, S Routine 09/18/2022 12:20 PM LINOTYPE WORKER Myelofibrosis Primary (HCC) CREATININE WITH EGFR, S/P Routine 09/18/2022 12:20 PM LINOTYPE WORKER Myelofibrosis Primary (HCC) BILIRUBIN, TOT, S/P Routine 09/18/2022 1 2:20 PM LINOTYPE WORKER Myelofibrosis Primary (HCC) documented in this encounter Results * Reticulocytes (09/18/2022 12:20 PM LINOTYPE WORKER) Reticulocytes, B CANCELED 0.60 - 2.71 % 09/18/2022 5:01 PM LINOTYPE WORKER DTL Comment: REVISED RESULTS ----PREVIOUSLY REPORTED ---- 3.38, Flagged as: Abnormal_High (Reported 09/18/2022 13:39) Absolute Reticulocyte CANCELED 30.4 - 110.9 x10(9)/L 09/18/2022 5:01 PM LINOTYPE WORKER DTL Comment: REVISED RESULTS ----PREVIOUSLY REPORTED ---- 87.5, Flagged as: Normal (Reported 09/18/2022 13:39) Blood (Blood, Venous) 09/18/2022 12:20 PM LINOTYPE WORKER 09/18/2022 1:12 PM LINOTYPE WORKER Narrative [facility] - 09/18/2022 5:01 PM LINOTYPE WORKER Reticulocytes, B was cancelled on 09/18/2022 at 17:01; Specimen may be contaminated. !CNCL! Isidro Arrington B.Ch. LAB BLOOD AD D-ON [facility] [address] [place] [address], [facility] 200 [place] [address] * SPSMA Result (09/18/2022 12:20 PM LINOTYPE WORKER) Neutrophilic Segs and Bands CANCELED 50 - 75 % 09/18/2022 5:01 PM LINOTYPE WORKER DH Comment: REVISED RESULTS ----PREVIOUSLY REPORTED ---- 65, Flagged as: Normal (Reported 09/18/2022 15:00) Lymphocytes CANCELED 18 - 42 % 09/18/2022 5:01 PM LINOTYPE WORKER DHPM Comment: REVISED RESULTS ----PREVIOUSLY REPORTED ---- 9, Flagged as: Abnormal_Low (Reported 09/18/2022 15:00) Monocytes CANCELED 2 - 11 % 09/18/2022 5:01 PM LINOTYPE WORKER DHPM Comment: REVISED RESULTS ----PREVIOUSLY REPORTED ---- 5, Flagged as: Normal (Reported 09/18/2022 15:00) Eosinophils CANCELED % 09/18/2022 5:01 PM LINOTYPE WORKER DHPM Comment:Result canceled by t he ancillary. Basophils CANCELED % 09/18/2022 5:01 PM LINOTYPE WORKER DHPM Comment:Result canceled by t he ancillary. Metamyelocytes CANCELED <1 % 09/18/2022 5:01 PM LINOTYPE WORKER DHPM Comment: REVISED RESULTS ----PREVIOUSLY REPORTED ---- 6, Flagged as: Abnormal_High (Reported 09/18/2022 15:00) Myelocytes CANCELED <0.5 % 09/18/2022 5:01 PM LINOTYPE WORKER DHPM Comment: REVISED RESULTS ----PREVIOUSLY REPORTED ---- 14, Flagged as: Abnormal_High (Reported 09/18/2022 15:00) Promyelocytes CANCELED N0623 % 09/18/2022 5:01 PM LINOTYPE WORKER DHPM Comment:Result canceled by t he ancillary. Blasts CANCELED <1 % 09/18/2022 5:01 PM LINOTYPE WORKER DHPM Comment: REVISED RESULTS ----PREVIOUSLY REPORTED ---- 1, Flagged as: Abnormal_High (Reported 09/18/2022 15:00) Plasma Cells CANCELED N0623 % 09/18/2022 5:01 PM LINOTYPE WORKER DHPM Comment:Result canceled by t he ancillary. Megakaryocytes CANCELED N0623 /100 WBC 09/18/2022 5:01 PM LINOTYPE WORKER DHPM Comment:Result canceled by t he ancillary. Nucleated RBC CANCELED /100 WBC 09/18/2022 5:01 PM LINOTYPE WORKER DHPM Comment: REVISED RESULTS ----PREVIOUSLY REPORTED ---- 171, Flagged as: Normal (Reported 09/18/2022 15:00) Fragile Cells CANCELED 09/18/2022 5:01 PM LINOTYPE WORKER DHPM Comment:Result canceled by t he ancillary. Blasts and Promonocytes CANCELED N0623 % 09/18/2022 5:01 PM LINOTYPE WORKER DHPM Comment:Result canceled by t he ancillary. Manual Absolute Neutrophil Count CANCELED 1.56 - 6.45 x10(9)/L 09/18/2022 5:01 PM LINOTYPE WORKER DHPM Comment: REVISED RESULTS ----ADDITIONAL INFORMATION---- The manual absolute neutrophil count is derived from a manual differential count and therefore is not exactly comparable to the automated absolute neutrophil count. ----PREVIOUSLY REPORTED ---- 11.38, Flagged as: Abnormal_High (Reported 09/18/2022 15:00) Interpretation CANCELED 09/18/2022 5:01 PM LINOTYPE WORKER [facility] Comment: REVISED RESULTS ----PREVIOUSLY REPORTED ---- No increase in dacrocytes is seen., Flagged as: Normal (Reported 09/18/2022 15:00) Reviewed by: CANCELED 09/18/2022 5:01 PM LINOTYPE WORKER [facility] Comment: REVISED RESULTS ----PREVIOUSLY REPORTED ---- Tech, Flagged as: Normal (Reported 09/18/2022 15:00) Blood (Blood, Venous) 09/18/2022 12:20 PM LINOTYPE WORKER 09/18/2022 1:12 PM LINOTYPE WORKER Narrative [facility] - 09/18/2022 5:01 PM LINOTYPE WORKER Morphology Eval (special smear) was cancelled on 09/18/2022 at 17:01; Specimen may be contaminated. !CNCL! Isidro Arrington BBernie. LAB BLOOD AD D-ON [facility] 200 [place] [address], [facility] [address] [place] [address] * Sodium (09/18/2022 12:20 PM LINOTYPE WORKER) Sodium, S CANCELED 135 - 145 mmol/L 09/18/2022 5:01 PM LINOTYPE WORKER DTL Comment: REVISED RESULTS ----PREVIOUSLY REPORTED ---- 141, Flagged as: Normal (Reported 09/18/2022 14:57) Blood (Blood, Venous) 09/18/2022 12:20 PM LINOTYPE WORKER 09/18/2022 1:34 PM LINOTYPE WORKER Narrative [facility] - 09/18/2022 5:01 PM LINOTYPE WORKER Sodium, S was cancelled on 09/18/2022 at 17:01; Specimen may be contaminated. !CNCL! Isidro Arrington B.Ch. LAB BLOOD AD D-ON Performing Organization Address City/[facility] Co de Phone Number [facility] [address] 200 [place] [address] * LD (Lactate Dehydrogenase) (09/18/2022 12:20 PM LINOTYPE WORKER) Lactate Dehydrogenase (LD), S CANCELED 122 - 222 U/L 09/18/2022 5:01 PM LINOTYPE WORKER DTL Comment: REVISED RESULTS ----PREVIOUSLY REPORTED ---- 1068, Flagged as: Abnormal_High (Reported 09/18/2022 14:57) Blood (Blood, Venous) 09/18/2022 12:20 PM LINOTYPE WORKER 09/18/2022 1:34 PM LINOTYPE WORKER Narrative [facility] - 09/18/2022 5:01 PM LINOTYPE WORKER Lactate Dehydrogenase (LD), S was cancelled on 09/18/2022 at 17:01; Specimen may be contaminated. !CNCL! Cain Denis.Clara. LAB BLOOD NO N ADD-ON Performing Organization Address [facility] Co de Phone Number [facility] 200 [place], [place] [address] [place] [address] 200 [place] [address] * Ferritin (09/18/2022 12:20 PM LINOTYPE WORKER) Ferritin, S CANCELED 11 - 307 mcg/L 09/18/2022 5:01 PM LINOTYPE WORKER DTL Comment: REVISED RESULTS ----PREVIOUSLY REPORTED ---- 4752, Flagged as: Abnormal_High (Reported 09/18/2022 14:57) Blood (Blood, Venous) 09/18/2022 12:20 PM LINOTYPE WORKER 09/18/2022 1:37 PM LINOTYPE WORKER Narrative [facility] - 09/18/2022 5:01 PM LINOTYPE WORKER Ferritin, S was cancelled on 09/18/2022 at 17:01; Specimen may be contaminated. !CNCL! Isidro Arrington B.Ch. LAB BLOOD AD D-ON Performing Organization Address City/[facility] Co de Phone Number [facility] [address] [place] [address], [facility] 200 [place] [address] * Creatinine with Estimated GFR (09/18/2022 12:20 PM LINOTYPE WORKER) Creatinine CANCELED 0.59 - 1.04 mg/dL 09/18/2022 5:01 PM LINOTYPE WORKER DTL Comment: REVISED RESULTS ----PREVIOUSLY REPORTED ---- 0.84, Flagged as: Normal (Reported 09/18/2022 14:20) Estimated GFR (eGFR) CANCELED >=60 mL/min/BSA 09/18/2022 5:01 PM LINOTYPE WORKER DTL Comment: REVISED RESULTS ----PREVIOUSLY REPORTED ---- 83Estimated GFR calculated using the 2020 CKD_EPI creatinine equation., Flagged as: Normal (Reported 09/18/2022 14:20) Blood (Blood, Venous) 09/18/2022 12:20 PM LINOTYPE WORKER 09/18/2022 1:37 PM LINOTYPE WORKER Narrative [facility] - 09/18/2022 5:01 PM LINOTYPE WORKER Creatinine with eGFR, S was cancelled on 09/18/2022 at 17:01; Specimen may be contaminated. !CNCL! Isidro Arrington B.Ch. LAB BLOOD AD D-ON Performing Organization Address City/[facility]/ZIP Co de Phone Number [facility] 200 [place] [address], [facility] 200 [place] [address] * CBC with Differential, Blood (09/18/2022 12:20 PM LINOTYPE WORKER) Hemoglobin CANCELED 11.6 - 15.0 g/dL 09/18/2022 5:01 PM LINOTYPE WORKER DTL Comment: REVISED RESULTS ----PREVIOUSLY REPORTED ---- 7.5, Flagged as: Abnormal_Low (Reported 09/18/2022 13:39) Hematocrit CANCELED 35.5 - 44.9 % 09/18/2022 5:01 PM LINOTYPE WORKER DTL Comment: REVISED RESULTS ----PREVIOUSLY REPORTED ---- 26.5, Flagged as: Abnormal_Low (Reported 09/18/2022 13:41) Erythrocytes CANCELED 3.92 - 5.13 x10(12)/L 09/18/2022 5:01 PM LINOTYPE WORKER DTL Comment: REVISED RESULTS ----PREVIOUSLY REPORTED ---- 2.59, Flagged as: Abnormal_Low (Reported 09/18/2022 13:41) MCV CANCELED 78.2 - 97.9 fL 09/18/2022 5:01 PM LINOTYPE WORKER DTL Comment: REVISED RESULTS ----PREVIOUSLY REPORTED ---- 102.3, Flagged as: Abnormal_High (Reported 09/18/2022 13:41) RBC Distrib Width CANCELED 12.2 - 16.1 % 09/18/2022 5:01 PM LINOTYPE WORKER DTL Comment: REVISED RESULTS ----PREVIOUSLY REPORTED ---- 37.3, Flagged as: Abnormal_High (Reported 09/18/2022 13:39) Platelet Count CANCELED 157 - 371 x10(9)/L 09/18/2022 5:01 PM LINOTYPE WORKER DHPM Comment: REVISED RESULTS Results confirmed by smear, no clumping or interference seen. ----PREVIOUSLY REPORTED ---- 1113, Flagged as: Panic_High (Reported 09/18/2022 14:47) Leukocytes CANCELED 3.4 - 9.6 x10(9)/L 09/18/2022 5:01 PM LINOTYPE WORKER DHPM Comment: REVISED RESULTS Corrected for normoblasts. ----PREVIOUSLY REPORTED ---- 17.5, Flagged as: Abnormal_High (Reported 09/18/2022 15:00) Neutrophils CANCELED 1.56 - 6.45 x10(9)/L 09/18/2022 5:01 PM LINOTYPE WORKER DHPM Comment: REVISED RESULTS Auto-diff results not valid. See manual differential. ----PREVIOUSLY REPORTED ---- SeeComment, Flagged as: Normal (Reported 09/18/2022 15:00) Lymphocytes CANCELED x10(9)/L 09/18/2022 5:01 PM LINOTYPE WORKER DHPM Comment:Result canceled by t he ancillary. Monocytes CANCELED x10(9)/L 09/18/2022 5:01 PM LINOTYPE WORKER DHPM Comment:Result canceled by t he ancillary. Eosinophils CANCELED x10(9)/L 09/18/2022 5:01 PM LINOTYPE WORKER DHPM Comment:Result canceled by t he ancillary. Basophils CANCELED x10(9)/L 09/18/2022 5:01 PM LINOTYPE WORKER DHPM Comment:Result canceled by t he ancillary. Blood (Blood, Venous) 09/18/2022 12:20 PM LINOTYPE WORKER 09/18/2022 1:12 PM LINOTYPE WORKER Narrative [facility] - 09/18/2022 5:01 PM LINOTYPE WORKER CBC with Differential, B was cancelled on 09/18/2022 at 17:01; Specimen may be contaminated. !CNCL! Isidro Arrington BZahraaCh. LAB BLOOD AD D-ON [facility] 200 [place] [address], [facility] 200 [place], [place] [phone] [place] [address] 200 [place] [address] * Bilirubin, Total (09/18/2022 12:20 PM LINOTYPE WORKER) Bilirubin, Total, S CANCELED <=1.2 mg/dL 09/18/2022 5:01 PM LINOTYPE WORKER DTL Comment: REVISED RESULTS ----PREVIOUSLY REPORTED ---- 0.6, Flagged as: Normal (Reported 09/18/2022 14:57) Blood (Blood, Venous) 09/18/2022 12:20 PM LINOTYPE WORKER 09/18/2022 1:34 PM LINOTYPE WORKER Narrative [facility] - 09/18/2022 5:01 PM LINOTYPE WORKER Bilirubin Total, S was cancelled on 09/18/2022 at 17:01; Specimen may be contaminated. !CNCL! Isidro Arrington B.Ch. LAB BLOOD AD D-ON Performing Organization Address [facility] Co de Phone Number [facility] [address] [place] [address], [facility] 200 [place] [address] * AST (Aspartate Aminotransferase) (09/18/2022 12:20 PM LINOTYPE WORKER) Aspartate Aminotransferase (AST), S CANCELED 8 - 43 U/L 09/18/2022 5:01 PM LINOTYPE WORKER DTL Comment: REVISED RESULTS ----PREVIOUSLY REPORTED ---- 45, Flagged as: Abnormal_High (Reported 09/18/2022 14:20) Blood (Blood, Venous) 09/18/2022 12:20 PM LINOTYPE WORKER 09/18/2022 1:37 PM LINOTYPE WORKER Narrative [facility] - 09/18/2022 5:01 PM LINOTYPE WORKER Aspartate Aminotransferase (AST), S was cancelled on 09/18/2022 at 17:01; Specimen may be contaminated. !CNCL! Isidro Arrington B.Ch. LAB BLOOD AD D-ON Performing Organization Address [facility] de Phone Number [facility] [address] [place] [address], [facility] [address] [place] [address] * ALT (Alanine Aminotransferase) (09/18/2022 12:20 PM LINOTYPE WORKER) Alanine Aminotransferase (ALT), S CANCELED 7 - 45 U/L 09/18/2022 5:01 PM LINOTYPE WORKER DTL Comment: REVISED RESULTS ----PREVIOUSLY REPORTED ---- 66, Flagged as: Abnormal_High (Reported 09/18/2022 14:20) Blood (Blood, Venous) 09/18/2022 12:20 PM LINOTYPE WORKER 09/18/2022 1:37 PM LINOTYPE WORKER Narrative [facility] - 09/18/2022 5:01 PM LINOTYPE WORKER Alanine Aminotransferase (ALT), S was cancelled on 09/18/2022 at 17:01; Specimen may be contaminated. !CNCL! Isidro Arrington B.Ch. LAB BLOOD AD D-ON Performing Organization Address [facility] Co de Phone Number [facility] [address] [place] [address], [facility] [address] [place] [address] * Alkaline Phosphatase (09/18/2022 12:20 PM LINOTYPE WORKER) Pathologist [facility] Alkaline Phosphatase, S CANCELED 35 - 104 U/L 09/18/2022 5:01 PM LINOTYPE WORKER DTL Comment: REVISED RESULTS ----PREVIOUSLY REPORTED ---- 232, Flagged as: Abnormal_High (Reported 09/18/2022 14:20) Blood (Blood, Venous) 09/18/2022 12:20 PM LINOTYPE WORKER 09/18/2022 1:37 PM LINOTYPE WORKER Narrative [facility] - 09/18/2022 5:01 PM LINOTYPE WORKER Alkaline Phosphatase, S was cancelled on 09/18/2022 at 17:01; Specimen may be contaminated. !CNCL! Isidro Arrington B.Ch. LAB BLOOD AD D-ON Performing Organization Address [facility] Co de Phone Number [facility] [address] [place] [address], [facility] 200 [place] [address] documented in this encounter Visit Diagnoses Diagnosis Myelofibrosis Primary (HCC) documented in this encounter Care Teams Basketball Coach Relationship Specialty Start Date End Date Elsewhere, Pcp PCP - General 11/04/21 documented as of this encounter
--- OUTSIDE RECORDS SUMMARY | 2023-08-21 10:27 | XMS_ITS | Encounter Summary ---
Author Name Unknown Organization [facility] Address [address] [place] [address] Care Team Providers Care Balancer Name Role Phone Elsewhere, Pcp Primary Care Provider Unavailabl e Reason for Visit * Reason Onset Date Comments Redraw needed 09/18/2022 Encounter Details Date Type Department Care Team (Late st Contact Info) Description 09/18/2022 Clinical Communication Division of Hematology in [place], [place] [address] [place] [phone] Isidro Zamarripa M.B., B.Ch. [address] [place] [phone] Redraw needed Social History Tobacco Use Types Packs/Day Years [...] Sex Assigned at Female 07/24/2021 11:03 AM PATTERNMAKER WOOD Gender Identity Female 07/24/2021 11:03 AM PATTERNMAKER WOOD Sexual Orientation Straight 07/24/2021 11 :03 AM PATTERNMAKER WOOD documented as of this encounter Plan of Treatment Not on file documented as of this encounter Visit Diagnoses Not on filedocumented in this encounter Care Teams Balancer Relationship Specialty Start Date End Date Elsewhere, Pcp PCP - General 11/04/21 documented as of this encounter
--- OUTSIDE RECORDS SUMMARY | 2023-08-21 10:27 | XMS_ITS | Encounter Summary ---
Author Name Unknown Organization [facility] Address [address] [place] [address] Care Team Providers Care Set Up / Operator Name Role Phone Elsewhere, Pcp Primary Care Provider Unavailabl e Encounter Details Date Type Department Care Team (Late st Contact Info) Description 09/23/2022 Orders Only [facility] [place], [place] [address] [place] [phone] External, Ordering ProviderDewayne Social History Tobacco Use Types Packs/Day Years [...] Sex Assigned at Female 07/24/2021 11:03 AM SCHOOL AGE PROGRAM ASSOCIATE Gender Identity Female 07/24/2021 11:03 AM SCHOOL AGE PROGRAM ASSOCIATE Sexual Orientation Straight 07/24/2021 11 :03 AM SCHOOL AGE PROGRAM ASSOCIATE documented as of this encounter Plan of Treatment Not on file documented as of this encounter Procedures Procedure Name Priority Date/Time Associated Diagnosis Comments EXTM FERRITIN, S Routine 09/23/2022 10:0 3 AM CDT documented in this encounter Results * (ABNORMAL) EXT Ferritin (09/23/2022 10:03 AM CDT) EXT Ferritin, S 5,240.0(H) 11.1 - 264.0 ng/mL SCANNED REPORT 09/23/2022 10:0 3 AM CDT Narrative SCANNED REPORT - 09/25/2022 12:37 PM CDT External results verified in Extract by Deisy Sigala on 09/25/2022 at 12:34 PM. Ordering Provider External M.D. LAB BLOO D ADD-ON SCANNED REPORT documented in this encounter Visit Diagnoses Not on filedocumented in this encounter Care Teams Set Up / Operator Relationship Specialty Start Date End Date Elsewhere, Pcp PCP - General 11/04/21 documented as of this encounter
--- OUTSIDE RECORDS SUMMARY | 2023-08-21 10:27 | XMS_ITS | Encounter Summary ---
Author Name Unknown Organization [facility] Address [address] [place] [address] Care Team Providers Care Rejoiner Name Role Phone Elsewhere, Pcp Primary Care Provider Unavailabl e Reason for Visit * Reason Onset Date Comments External Lab Entry 09/13/2022 Encounter Details Date Type Department Care Team (Latest Contact Info) Description 09/13/2022 Clinical Communication Division of Hematology in [place], [place] [address] [place] [phone] Janusz Govea M.B.B.S. [address] [place] [phone] External Lab Entry Social History Tobacco Use [...] Sex Assigned at Female 07/24/2021 11:03 AM TRANSPORTATION ECONOMICS TEACHER Gender Identity Female 07/24/2021 11:03 AM TRANSPORTATION ECONOMICS TEACHER Sexual Orientation Straight 07/24/2021 11 :03 AM TRANSPORTATION ECONOMICS TEACHER documented as of this encounter Miscellaneous Notes * Telephone Encounter - Jennifer Peralta - 09/13/2022 12:07 PM TRANSPORTATION ECONOMICS TEACHER Antibody Screen outside labs collected on 09/13/2022 have been received. The fax has been scanned into the patient record via [employer]. SPORTATION ECONOMICS TEACHER documented in this encounter Plan of Treatment Not on file documented as of this encounter Visit Diagnoses Not on filedocumented in this encounter Care Teams Rejoiner Relationship Specialty Start Date End Date Elsewhere, Pcp PCP - General 11/04/21 documented as of this encounter
--- OUTSIDE RECORDS SUMMARY | 2023-08-21 10:27 | XMS_ITS | Encounter Summary ---
Author Name Unknown Organization [facility] Address [address] [place] [address] Care Team Providers Care Loft Worker Head Name Role Phone Elsewhere, Pcp Primary Care Provider Unavailabl e Reason for Visit * Reason Onset Date Comments Triage 09/19/2022 Encounter Details Date Type Department Care Team (Latest Contact Info) Description 09/19/2022 Clinical Communication Department of Cardiovascular Medicine in [place], [place] [address] [place] [phone] Nurses EducatorKeven M.D. Triage Social History Tobacco Use Types Packs/Day Years [...] Assigned at Female 07/24/2021 11:03 AM MANAGER GROUP Gender Identity Female 07/24/2021 11:03 AM MANAGER GROUP Sexual Orientation Straight 07/24/2021 11 :03 AM MANAGER GROUP documented as of this encounter Plan of Treatment Not on file documented as of this encounter Visit Diagnoses Not on filedocumented in this encounter Care Teams Loft Worker Head Relationship Specialty Start Date End Date Elsewhere, Pcp PCP - General 11/04/21 documented as of this encounter
--- OUTSIDE RECORDS SUMMARY | 2023-08-21 10:27 | XMS_ITS | Encounter Summary ---
Author Name Unknown Organization [facility] Address [address] [place] [id number] Care Team Providers Care Panel Raiser Operator Name Role Phone Elsewhere, Pcp Primary Care Provider Unavailabl e Reason for Visit * Outpatient (Routine) - Closed Specialty Diagnoses / Procedures Referred By Contac t Referred To Contact Hematology Oncology Isidro Zamarripa M.B., B.Ch. [address] [place] [phone] [facility] Referral ID Status Reason Start Date Expiration Date Visits Re quested Visits Authorized [id number] Closed 04/18/2022 04/17/2025 1 1 Encounter Details Date Type Department Care Team (Latest Contact Info) Description 09/18/2022 3:30 PM GENERAL MAGISTRATE Office Visit Division of Hematology in [place], [place] [address] [place] [phone] Isidro Zamarripa M.B., B.Ch. [address] [place] [phone] Myelofibrosis Primary (HCC) (Primary Dx) Social History [...] Sex Assigned at Female 07/24/2021 11:03 AM GENERAL MAGISTRATE Gender Identity Female 07/24/2021 11:03 AM GENERAL MAGISTRATE Sexual Orientation Straight 07/24/2021 11 :03 AM GENERAL MAGISTRATE documented as of this encounter Last Filed Vital Signs Vital Sign Reading Time Taken Comments Blood Pressure 115/48 09/18/2022 3:26 PM GENERAL MAGISTRATE Pulse 63 09/18/2022 3:26 PM GENERAL MAGISTRATE Temperature 36.4 ??C (97.6 ??F) 09/18/2022 3:26 PM CS T Respiratory Rate - - Oxygen Saturation - - Inhaled Oxygen Concentration - - Weight 98.3 kg (216 lb 11.4 oz) 09/18/2022 3:26 PM GENERAL MAGISTRATE Height 170.5 cm (5' 7.13) 09/18/2022 3:26 PM CS T Body Mass Index 33.81 09/18/2022 3:26 PM GENERAL MAGISTRATE documented in this encounter Progress Notes * Isidro Zamarripa M.B., B.Ch. - 09/18/2022 3:30 PM CST SUBJECTIVE CHIEF COMPLAINT/REASON FOR VISIT Primary myelofibrosis. HISTORY OF PRESENT ILLNESS Ms. Dobbs is a pleasant 52-year-old lady with primary myelofibrosis here accompanied by her . Prior treatments have included Jakafi, alisertib and 9-ING clinical trials, fedratinib, and is status post a splenectomy in February of 2022. Her postsplenectomy course has been uncomplicated. She did not require any red blood cell transfusions until recently when she was transfused for a hemoglobin of 6.9 g/dL. As she has symptomatic anemia that threshold for transfusion has been reset to 7.5 gram/deciliter. She had thrombocytosis and leukocytosis after the splenectomy, but there was no increase in circulating blasts. She also has abdominal discomfort and is currently on morphine, even though at a lower dose than what she used to take prior to the splenectomy. She had a few episodes when she had nausea and emesis,usually after eating out at a restaurant. Overall she feels substantially better since the splenectomy and reports that are quality of life has improved. She had a recent echocardiogram which shows severely enlarged biventricular chambers with an ejection fraction of 50% on the left side and moderately reduced right ventricular systolic function. She has an estimated right ventricular systolic pressure of 62 mmHg. She also has bilateral atrial enlargement more severe on the left. Of note a previous sulfur technetium scan from May 2021 demonstrated minimally elevated diffuse activity in both lungs thought to be scattered from the liver and spleen although the possibility of mild diffusepulmonary extramedullary hematopoiesis could not be completely excluded. CURRENT MEDICATIONS Current Outpatient Medications: acetaminophen (TYLENOL) 500 mg tablet, Take 2 tablets (1,000 mg total) by mouth every 6 (six) hoursas needed for pain (Do not exceed 4000mg/day.)., Disp: , Rfl: allopurinoL (ZYLOPRIM) 300 mg tablet, TAKE 1 TABLET BY MOUTH DAILY, Disp: 90 tablet, Rfl: 3 calcium acetate,phosphat bind, (PHOSLO) 667 mg (169 mg calcium) capsule, TAKE 2 CAPSULES BY MOUTH THREE TIMES DAILY, Disp: 540 capsule, Rfl: 0 cyanocobalamin (VITAMIN B12) 100 mcg tablet, Take 100 mcg by mouth once a week. Mondays, Disp: , Rfl: enoxaparin (LOVENOX) 100 mg/mL injection, Inject 0.9 mL (90 mg total) under the skin 2 (two) times a day for 18 days. Continue medication until follow up appointments. Do not stop., Disp: 36 mL, Rfl:0 hydroxyurea (HYDREA) 500 mg capsule, TAKE 1 CAPSULE BY MOUTH TWICE DAILY. TAKE AT THE SAME TIME EACH DAY, Disp: 180 capsule, Rfl: 1 LORazepam (ATIVAN) 0.5 mg tablet, Take 1-2 mg by mouth at bedtime as needed for anxiety or sleep. ,Disp: , Rfl: morphine (MS CONTIN) 30 mg ER tablet, 2 (two) times a day., Disp: , Rfl: Morphine 15 mg, Bupivacaine 10 mg/mL INTRATHECAL, 15 mg 2 (two) times a day., Disp: , Rfl: oxyCODONE (ROXICODONE) 5 mg immediate release tablet, Take 1 tablet (5 mg total) by mouth 2 (two) times a day Indication: Acute Pain Exception. (Patient taking differently: Take 5 mg by mouth as needed Indication: Acute Pain Exception.), Disp: 8 tablet, Rfl: 0 sennosides (SENOKOT) 8.6 mg tablet, Take 1 tablet by mouth 2 (two) times a day., Disp: , Rfl: sodium-potassium bicarbonate (VASYL-SELTZER GOLD) 344-1,050-1,000 mg tablet, effervescent, Take 1 tablet by mouth daily as needed (upset stomach)., Disp: , Rfl: torsemide (DEMADEX) 20 mg tablet, Take 1 tablet (20 mg total) by mouth daily. (Patient taking differently: Take 20 mg by mouth every morning. May take an additional dose in the evening if needed for swelling), Disp: 30 tablet, Rfl: 1 UNABLE TO FIND, Med Name: Cannabis- patient's reports this is newly prescribed for her and as of 03/11/22, has not yet started. Reports patient will have gummies as well as a tablet, have not picked these up yet. Strength of these is not known because they are new for her., Disp: , Rfl: OBJECTIVE PHYSICAL EXAMINATION Weight: 98.3 kg Height: 170.5 cm BSA (Calculated - sq m): 2.16 sq meters BMI (Calculated): 33.8 kg/m?? Blood Pressure: 115/48 Pulse Rate: 63 Temperature: 36.4 ??C Temp Source: Tympanic General: In no acute distress. DIAGNOSTICS I reviewed the initial laboratory studies which were reported but subsequently canceled. She did appear to have pseudo hyperkalemia related to leukocytosis and thrombocythemia. A redraw of the laboratory studies as planned with serum and plasma potassium. 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 She understands that allogeneic hematopoietic stem cell transplantation represents the only possibility of curative therapy however at the present time she wouldbe at very high risk for serious complications related to allogeneic transplant. She has significant cardiac disease, elevated ferritin with likely substantial iron overload in the liver and heart (this could be further formally evaluated if allogeneic transplant is considered at some point in the future) in addition to the fact that she does not have well-matched unrelated donors and has haploidentical donor options which would require high dose posttransplant cyclophosphamide which I think would be very risky in the context of her current cardiac function. She is not interested in considering proceeding with allogeneic transplant at the present time for multiple reasons. I think that this is reasonable. She will focus on maximizing her quality of life for now. I think it would be worthwhile reviewing the situation with our cardiology colleagues and the patient would like to follow-up with this. I have discussed this with Dr. Govea who is in the process of ensuring that this is in place. One consideration might be to determine whether repeating the sulfur technetium lung scan might be worthwhile in the current context to see if there is any evidence for extramedullary hematopoiesis of the lungs that is contributing to the cardiac dysfunction and whether she might benefit from low-dose radiotherapy to the lung patton. Previously it was not clear whether there could be some pulmonary uptake due to the scattered from the liver and spleen however now in the context of splenectomy it may be more clear whether there is uptake on the left side of the chest suggestive of pulmonary extramedullary hematopoiesis that might benefit from radiation therapy. #4 Pulmonary hypertension Repeat echocardiogram performed in July, cardiac follow-up planned. She will continue on torsemide. #5 Consideration of allogeneic transplant After detailed discussion the patient is not interested in pursuing allogeneic transplant at the present time. I would be happy to review the situation in the future if her circumstances change. She and her are very comfortable with this decision. I have not arranged follow-up at the present time but we would be happy to see her at any point if additional discussion is helpful. RAL MAGISTRATE documented in this encounter Plan of Treatment Not on file documented as of this encounter Visit Diagnoses Diagnosis Myelofibrosis Primary (HCC)- Primary documented in this encounter Care Teams Panel Raiser Operator Relationship Specialty Start Date End Date Elsewhere, Pcp PCP - General 11/04/21 documented as of this encounter
--- OUTSIDE RECORDS SUMMARY | 2023-08-21 10:27 | XMS_ITS | Encounter Summary ---
Author Name Unknown Organization [facility] Address [address] [place] [id number] Care Team Providers Care Hot Tamale Worker Name Role Phone Elsewhere, Pcp Primary Care Provider Unavailabl e Reason for Visit * Reason Onset Date Comments Lab Question 09/23/2022 Encounter Details Date Type Department Care Team (Late st Contact Info) Description 09/23/2022 Clinical Communication Division of Hematology in [place], [place] [address] [place] [phone] Isidro Zamarripa M.B., B.Ch. [address] [place] [phone] Lab Question Social History Tobacco Use Types Packs/Day Years [...] Sex Assigned at Female 07/24/2021 11:03 AM HEAD STILL OPERATOR Gender Identity Female 07/24/2021 11:03 AM HEAD STILL OPERATOR Sexual Orientation Straight 07/24/2021 11 :03 AM HEAD STILL OPERATOR documented as of this encounter Miscellaneous Notes * Telephone Encounter - Jennifer Peralta 09/23/2022 1:05 PM CDT Outside labs collected on 09/23/2022 have been received. The fax has been scanned into the patient record via [employer], and the CBC results are as noted below. Hemoglobin: 8.2 Hematocrit: 27.9 WBC: 51.90 ANC: 13.50 Platelets: 1451 Please note: Are there additional labs reported on the outside report? Yes documented in this encounter Plan of Treatment Not on file documented as of this encounter Visit Diagnoses Not on filedocumented in this encounter Care Teams Hot Tamale Worker Relationship Specialty Start Date End Date Elsewhere, Pcp PCP - General 11/04/21 documented as of this encounter
--- OUTSIDE RECORDS SUMMARY | 2023-08-21 10:27 | XMS_ITS | Encounter Summary ---
Author Name Unknown Organization [facility] Address [address] [place] [address] Care Team Providers Care Skin Lap Bonder Name Role Phone Elsewhere, Pcp Primary Care Provider Unavailabl e Reason for Visit * Reason Onset Date Comments External Lab Entry 09/10/2022 Encounter Details Date Type Department Care Team (Latest Contact Info) Description 09/10/2022 Clinical Communication Division of Hematology in [place], [place] [address] [place] [phone] Janusz Govea M.B.BZahraaS. [address] [place] [phone] External Lab Entry Social History Tobacco Use [...] Sex Assigned at Female 07/24/2021 11:03 AM PROP CUTTER Gender Identity Female 07/24/2021 11:03 AM PROP CUTTER Sexual Orientation Straight 07/24/2021 11 :03 AM PROP CUTTER documented as of this encounter Miscellaneous Notes * Telephone Encounter - Jocelyne Lang - 09/10/2022 11:41 AM CST Outside labs collected on 09/10/2022 have been received. The fax has been scanned into the patient record via [employer], and the CBC results are as noted below. Hemoglobin: 7.0 Hematocrit: 23.7 WBC: 24.10 ANC: 13.7 Platelets: 1089 Please note: Are there additional labs reported on the outside report? Yes CUTTER documented in this encounter Plan of Treatment Not on file documented as of this encounter Visit Diagnoses Not on filedocumented in this encounter Care Teams Skin Lap Bonder Relationship Specialty Start Date End Date Elsewhere, Pcp PCP - General 11/04/21 documented as of this encounter
== END 2023-08-21 10:17 | disposition home or self-care (01) ==
LOC: NFLDREF 10:18
PROVIDERS: PCP Internal Medicine; Visit Provider Internal Medicine
DX: I50.810 Right heart failure, unspecified (principal); R73.03 Prediabetes
CPT/HCPCS: 80061

== ENCOUNTER 2024-02-19 11:00 | Outpatient (RCR) | payer MEDICARE, MEDICAID, SELFPAY ==
[2023-08-28 11:09] LABS: Hematocrit 24.2 % (33.0-51.0); Mean Corpuscular HGB Conc 29 gm/dL (32-36); Mean Corpuscular Hemoglobin 27 pg (26-34); Mean Corpuscular Volume 93 fL (80-100); Platelet Count* 969 K/uL (140-440); RDW Coefficient of Variation % 26.9 % (11.5-15.5)
[2023-08-28 12:13] LABS: Hemoglobin* 7.1 gm/dL (12.0-16.0); Slide Review Reflex Yes
[2023-08-28 12:17] LABS: White Blood Count* 37.81 K/uL (4.50-11.00)
[2023-08-28 23:58] LABS: Slide Review Acceptable Review (Acceptable)
[2023-08-29 11:04] VITALS: BP 106/56; PULSE 108; RESP 18; TEMP 36.8; O2SAT 92
[2023-08-29 11:22] VITALS: BP 122/75; PULSE 107; RESP 18; TEMP 37.1; O2SAT 93
[2023-08-29 12:07] VITALS: BP 118/69; PULSE 105; RESP 20; TEMP 36.9; O2SAT 92
[2023-08-29 13:11] VITALS: BP 117/73; PULSE 108; RESP 20; TEMP 37.1; O2SAT 92
[2023-08-29 13:40] VITALS: BP 109/55; PULSE 103; RESP 20; TEMP 37.2; O2SAT 94
--- NOTE | 2023-08-29 15:08 | ONC.NURNOTE ---
Pt here for 1 unit PRBC tx today; tolerated well. Pt familiar with s/s delayed reaction. DC'd to home ambulatory with . She has a dry cough and is following with PCP and Cardiology for a sleep study, med changes and general workup/management of these symptoms.
[2023-09-04 10:20] LABS: Hematocrit 25.3 % (33.0-51.0); Mean Corpuscular HGB Conc 30 gm/dL (32-36); Mean Corpuscular Hemoglobin 28 pg (26-34); Mean Corpuscular Volume 93 fL (80-100); Platelet Count* 887 K/uL (140-440); RDW Coefficient of Variation % 25.7 % (11.5-15.5); Red Blood Count 2.72 m/uL (4.00-5.20)
[2023-09-04 10:59] LABS: White Blood Count* 81.08 K/uL (4.50-11.00)
[2023-09-04 11:00] LABS: Hemoglobin* 7.5 gm/dL (12.0-16.0); Slide Review Reflex Yes
[2023-09-04 11:03] LABS: Slide Review Acceptable Review (Acceptable)
--- NOTE | 2023-09-04 12:55 | PC.NURSE ---
Pt present at [facility] today for hgb check. Hgb 7.5, no transfusion indicated. Called and spoke with pt's , Gian. No further action at this time. They will call to schedule lab check next week at their convenience.
[2023-09-08 11:40] LABS: Hemoglobin* 7.1 gm/dL (12.0-16.0)
[2023-09-09 11:11] VITALS: BP 107/72; PULSE 100; RESP 18; TEMP 36.4; O2SAT 94
[2023-09-09 11:29] VITALS: BP 99/59; PULSE 93; RESP 16; TEMP 37.2; O2SAT 92
[2023-09-09 12:22] VITALS: BP 105/55; PULSE 90; RESP 16; TEMP 36.8; O2SAT 93
[2023-09-09 13:10] VITALS: BP 104/70; PULSE 93; RESP 16; TEMP 36.4; O2SAT 94
[2023-09-09 13:43] VITALS: BP 102/61; PULSE 105; RESP 18; TEMP 36.8; O2SAT 93
[2023-09-16 10:24] LABS: Basophils Percent Auto 9.1 % (0.0-3.0); Eosinophils Percent Auto 0.3 % (0.0-7.0); Immature Granulocytes Pct Auto 8.9 %; Mean Corpuscular HGB Conc 30 gm/dL (32-36); Mean Corpuscular Hemoglobin 27 pg (26-34); Mean Corpuscular Volume 92 fL (80-100); Monocytes Percent Auto 13.4 % (0.0-11.0); Neutrophils Percent Auto 36.3 % (42.0-72.0); Platelet Count* 995 K/uL (140-440); RDW Coefficient of Variation % 27.1 % (11.5-15.5); Red Blood Count 2.83 m/uL (4.00-5.20)
[2023-09-16 10:46] LABS: Chloride* 102 mmol/L (96-114); Sodium* 140 mmol/L (135-149)
[2023-09-16 10:49] LABS: Anion Gap 7 mEq/L (7-15); Blood Urea Nitrogen* 36 mg/dL (7-30); Carbon Dioxide* 31 mmol/L (20-32); Estimated Glomerular Filt Rate 67 ml/min
[2023-09-16 10:50] LABS: Glucose* 133 mg/dL (60-115)
[2023-09-16 11:10] LABS: Corrected White Blood Count 28.59 K/UL (4.50-11.00); Hemoglobin* 7.7 gm/dL (12.0-16.0); Slide Review Reflex Yes; White Blood Count* 84.93 K/uL (4.50-11.00)
[2023-09-16 11:11] LABS: Slide Review Acceptable Review (Acceptable)
[2023-09-22 11:03] LABS: Hematocrit 25.3 % (33.0-51.0); Mean Corpuscular HGB Conc 29 gm/dL (32-36); Mean Corpuscular Hemoglobin 27 pg (26-34); Mean Corpuscular Volume 93 fL (80-100); Platelet Count* 891 K/uL (140-440); RDW Coefficient of Variation % 28.5 % (11.5-15.5); Red Blood Count 2.72 m/uL (4.00-5.20)
[2023-09-22 12:02] LABS: Corrected White Blood Count 34.86 K/UL (4.50-11.00); Hemoglobin* 7.3 gm/dL (12.0-16.0)
[2023-09-22 12:03] LABS: Slide Review Reflex Yes
[2023-09-22 12:05] LABS: Slide Review Acceptable Review (Acceptable)
[2023-09-23 09:29] VITALS: BP 108/66; PULSE 102; RESP 16; TEMP 36.6; O2SAT 91
[2023-09-23] MEDS: 0.9 % SODIUM CHLORIDE 250 ml IV (09:30)
[2023-09-23] MEDS: SODIUM CHLORIDE 0.9 % (FLUSH) 10 ML SYRINGE IVF (09:30)
[2023-09-23 09:51] VITALS: BP 96/57; PULSE 93; RESP 16; TEMP 37.1; O2SAT 87
[2023-09-23 09:52] VITALS: BP 104/57; PULSE 96; RESP 16; TEMP 36.9; O2SAT 92
[2023-09-23 10:37] VITALS: BP 105/58; PULSE 94; RESP 16; TEMP 36.8; O2SAT 87
[2023-09-23 12:00] VITALS: BP 108/71; PULSE 92; RESP 16; TEMP 36.8; O2SAT 94
--- NOTE | 2023-09-23 12:10 | PC.NURSE ---
Pt present at [facility] today for a blood transfusion. Jennifer is very overwhelmed and frustrated with her current health status. She feels something is going on but doesn't know what. Ultimately the hardest thing for her is that she's not sleeping. A sleep study was ordered by her PCP and she had talked to her apartment assistant manager about home oxygen but nothing has happened yet. RN reached out to PCP and let them know that the sleep study hasn't been scheduled yet. Also of note, pt has a script for Ambien but she hasn't taken it yet as she is apprehensive. She currently takes Tylenol PM with little help. RN read cardiology notes from [place] and it was suggested that she have a home overnight oximetry study. Jennifer will plan to call cardiology later today to ask about scheduling that study and about getting some home oxygen ordered if appropriate. Pt and her verbalized understanding. Of note, pt's oxygen saturation levels today were between 85-92%.
[2023-10-02 10:51] LABS: Basophils Percent Auto 9.4 % (0.0-3.0); Eosinophils Percent Auto 0.3 % (0.0-7.0); Hematocrit 23.8 % (33.0-51.0); Mean Corpuscular HGB Conc 30 gm/dL (32-36); Mean Corpuscular Hemoglobin 28 pg (26-34); Mean Corpuscular Volume 94 fL (80-100); Monocytes Percent Auto 12.2 % (0.0-11.0); Neutrophils Percent Auto 52.1 % (42.0-72.0); Platelet Count* 994 K/uL (140-440); RDW Coefficient of Variation % 28.1 % (11.5-15.5); Red Blood Count 2.52 m/uL (4.00-5.20)
[2023-10-02 11:36] LABS: Slide Review Reflex Yes
[2023-10-02 11:38] LABS: White Blood Count* 85.14 K/uL (4.50-11.00)
[2023-10-02 11:39] LABS: Corrected White Blood Count 26.44 K/UL (4.50-11.00); Hemoglobin* 7.1 gm/dL (12.0-16.0)
[2023-10-02 11:40] LABS: Slide Review Acceptable Review (Acceptable)
[2023-10-03] VITALS (7 sets, daily range): BP systolic 103–122; BP diastolic 57–72; PULSE 86–108; RESP 16–22; TEMP 36.3–37.1; O2SAT 90–93
[2023-10-14 10:56] LABS: Basophils Percent Auto 10.3 % (0.0-3.0); Eosinophils Percent Auto 0.2 % (0.0-7.0); Hematocrit 26.2 % (33.0-51.0); Lymphocytes Percent Auto 29.8 % (20-44); Mean Corpuscular HGB Conc 30 gm/dL (32-36); Mean Corpuscular Hemoglobin 28 pg (26-34); Mean Corpuscular Volume 94 fL (80-100); Monocytes Percent Auto 13.4 % (0.0-11.0); Neutrophils Percent Auto 46.3 % (42.0-72.0); Platelet Count* 961 K/uL (140-440); RDW Coefficient of Variation % 28.7 % (11.5-15.5)
[2023-10-14 11:51] LABS: Hemoglobin* 7.8 gm/dL (12.0-16.0); Slide Review Reflex No; White Blood Count* 98.77 K/uL (4.50-11.00)
--- NOTE | 2023-10-14 12:50 | ONC.NURNOTE ---
Called patient with lab results and faxed to [place]. Patient will return next week for another check, sooner if becomes symptomatic.
[2023-10-20 11:07] LABS: Basophils Percent Auto 8.6 % (0.0-3.0); Eosinophils Percent Auto 0.3 % (0.0-7.0); Hematocrit 24.8 % (33.0-51.0); Lymphocytes Percent Auto 22.1 % (20-44); Mean Corpuscular HGB Conc 29 gm/dL (32-36); Mean Corpuscular Hemoglobin 27 pg (26-34); Mean Corpuscular Volume 93 fL (80-100); Monocytes Percent Auto 13.9 % (0.0-11.0); Neutrophils Percent Auto 55.1 % (42.0-72.0); Platelet Count* 893 K/uL (140-440); RDW Coefficient of Variation % 29.3 % (11.5-15.5); Red Blood Count 2.66 m/uL (4.00-5.20)
[2023-10-20 11:22] LABS: Chloride* 102 mmol/L (96-114); Potassium* 4.1 mmol/L (3.6-5.1); Sodium* 138 mmol/L (135-149)
[2023-10-20 11:25] LABS: Anion Gap 3 mEq/L (7-15); Blood Urea Nitrogen* 32 mg/dL (7-30); Carbon Dioxide* 33 mmol/L (20-32); Estimated Glomerular Filt Rate 67 ml/min; Glucose* 117 mg/dL (60-115)
[2023-10-20 11:26] LABS: Calcium* 9.1 mg/dL (8.4-10.6)
[2023-10-20 11:53] LABS: Slide Review Reflex Yes
[2023-10-20 11:57] LABS: Corrected White Blood Count 34.98 K/UL (4.50-11.00); Hemoglobin* 7.3 gm/dL (12.0-16.0); White Blood Count* 82.55 K/uL (4.50-11.00)
[2023-10-20 11:58] LABS: Slide Review Acceptable Review (Acceptable)
[2023-10-22 08:05] VITALS: BP 142/75; PULSE 92; RESP 16; TEMP 36.5; O2SAT 90
[2023-10-22 08:28] VITALS: BP 142/75; PULSE 92; RESP 16; TEMP 36.5; O2SAT 90
[2023-10-22] MEDS: 0.9 % SODIUM CHLORIDE 250 ml IV (08:32)
[2023-10-22] MEDS: SODIUM CHLORIDE 0.9 % (FLUSH) 10 ML SYRINGE IVF (08:33)
[2023-10-22 08:42] VITALS: BP 119/63; PULSE 87; RESP 16; TEMP 36.9; O2SAT 93
[2023-10-22 09:27] VITALS: BP 115/70; PULSE 88; RESP 16; TEMP 36.9; O2SAT 96
[2023-10-22 10:27] VITALS: BP 109/97; PULSE 83; RESP 16; TEMP 36.7; O2SAT 94
[2023-10-22 10:57] VITALS: BP 120/77; PULSE 92; RESP 16; TEMP 36.6; O2SAT 93
[2023-10-30 10:59] LABS: Basophils Percent Auto 9.3 % (0.0-3.0); Eosinophils Percent Auto 0.3 % (0.0-7.0); Hematocrit 25.7 % (33.0-51.0); Lymphocytes Percent Auto 28.8 % (20-44); Mean Corpuscular HGB Conc 30 gm/dL (32-36); Mean Corpuscular Hemoglobin 28 pg (26-34); Mean Corpuscular Volume 95 fL (80-100); Monocytes Percent Auto 16.1 % (0.0-11.0); Neutrophils Percent Auto 45.5 % (42.0-72.0); RDW Coefficient of Variation % 27.6 % (11.5-15.5); Red Blood Count 2.71 m/uL (4.00-5.20)
[2023-10-30 12:05] LABS: Hemoglobin* 7.6 gm/dL (12.0-16.0)
[2023-10-30 12:06] LABS: Platelet Count* 1004 K/uL (140-440)
[2023-10-30 12:07] LABS: Corrected White Blood Count 41.49 K/UL (4.50-11.00); White Blood Count* 95.03 K/uL (4.50-11.00)
[2023-10-30 12:08] LABS: Slide Review Reflex Yes
[2023-10-31 00:24] LABS: Slide Review Acceptable Review (Acceptable)
[2023-11-06 09:58] LABS: Basophils Percent Auto 9.2 % (0.0-3.0); Eosinophils Percent Auto 0.3 % (0.0-7.0); Hematocrit 24.8 % (33.0-51.0); Lymphocytes Percent Auto 26.3 % (20-44); Mean Corpuscular HGB Conc 29 gm/dL (32-36); Mean Corpuscular Hemoglobin 28 pg (26-34); Mean Corpuscular Volume 97 fL (80-100); Monocytes Percent Auto 15.5 % (0.0-11.0); Neutrophils Percent Auto 48.7 % (42.0-72.0); Platelet Count* 986 K/uL (140-440); RDW Coefficient of Variation % 28.1 % (11.5-15.5); Red Blood Count 2.57 m/uL (4.00-5.20)
[2023-11-06 10:48] LABS: White Blood Count* 103.57 K/uL (4.50-11.00)
[2023-11-06 10:49] LABS: Slide Review Reflex Yes
[2023-11-06 10:51] LABS: Corrected White Blood Count 40.62 K/UL (4.50-11.00); Hemoglobin* 7.3 gm/dL (12.0-16.0)
[2023-11-07 07:37] LABS: Slide Review Acceptable Review (Acceptable)
[2023-11-07 09:10] VITALS: BP 104/58; PULSE 124; RESP 16; TEMP 36.8; O2SAT 95
[2023-11-07 09:32] VITALS: BP 104/58; PULSE 124; RESP 16; TEMP 36.8; O2SAT 95
[2023-11-07 09:47] VITALS: BP 115/68; PULSE 105; RESP 24; TEMP 37; O2SAT 92
[2023-11-07 10:32] VITALS: BP 109/69; PULSE 98; RESP 24; TEMP 37.1; O2SAT 92
[2023-11-07 11:44] VITALS: BP 105/60; PULSE 88; RESP 20; TEMP 36.8; O2SAT 95
[2023-11-07 12:12] VITALS: BP 107/71; PULSE 89; RESP 22; TEMP 36.9; O2SAT 92
[2023-11-19 10:01] LABS: Hematocrit 24.9 % (33.0-51.0); Mean Corpuscular HGB Conc 30 gm/dL (32-36); Mean Corpuscular Hemoglobin 29 pg (26-34); Mean Corpuscular Volume 97 fL (80-100); RDW Coefficient of Variation % 28.4 % (11.5-15.5); Red Blood Count 2.56 m/uL (4.00-5.20)
[2023-11-19 10:10] LABS: White Blood Count* 133.73 K/uL (4.50-11.00)
[2023-11-19 10:11] LABS: Hemoglobin* 7.5 gm/dL (12.0-16.0); Platelet Count* 1182 K/uL (140-440)
[2023-11-19 10:16] LABS: Chloride* 105 mmol/L (96-114); Potassium* 4.2 mmol/L (3.6-5.1); Sodium* 141 mmol/L (135-149)
[2023-11-19 10:19] LABS: Anion Gap 4 mEq/L (7-15); Blood Urea Nitrogen* 29 mg/dL (7-30); Carbon Dioxide* 32 mmol/L (20-32); Creatinine* 0.8 mg/dL (0.5-1.5); Estimated Glomerular Filt Rate 87 ml/min
[2023-11-19 10:20] LABS: Calcium* 8.5 mg/dL (8.4-10.6); Glucose* 98 mg/dL (60-115)
[2023-11-19 10:53] LABS: Slide Review Reflex Yes
[2023-11-19 10:54] LABS: Slide Review Acceptable Review (Acceptable)
--- NOTE | 2023-11-19 11:28 | ONC.NURNOTE ---
Pt called with hgb results. hgb 7.5, no blood needed per parameters. Pt scheduled for repeat blood draw on 11/24/23.
[2023-11-24 09:25] LABS: Basophils Percent Auto 8.7 % (0.0-3.0); Eosinophils Percent Auto 0.3 % (0.0-7.0); Hematocrit 26.3 % (33.0-51.0); Mean Corpuscular HGB Conc 30 gm/dL (32-36); Mean Corpuscular Hemoglobin 29 pg (26-34); Mean Corpuscular Volume 97 fL (80-100); Monocytes Percent Auto 12.2 % (0.0-11.0); Neutrophils Percent Auto 43.8 % (42.0-72.0); Platelet Count* 937 K/uL (140-440)
[2023-11-24 10:13] LABS: Corrected White Blood Count 45.08 K/UL (4.50-11.00); Hemoglobin* 7.8 gm/dL (12.0-16.0); White Blood Count* 126.95 K/uL (4.50-11.00)
[2023-11-24 10:14] LABS: Slide Review Reflex Yes
[2023-11-24 10:16] LABS: Slide Review Acceptable Review (Acceptable)
[2023-11-24 10:17] LABS: Corrected White Blood Count 40.15 K/UL (4.50-11.00)
--- NOTE | 2023-11-24 10:26 | ONC.NURNOTE ---
Notified pt of Hgb result 7.8 with no transfusion indicated. Pt is pleasantly surprise hgb increased from last week. Pt to call us when feels next check indicated, anticipates later this week.
--- NOTE | 2023-11-27 14:29 | PC.NURSE ---
Pt present at [facility] today for las. CBC ordered per Dr. Govea, [facility] and BMP per Dr. Mayes [facility] [facility] HTN. [facility] staff had lab orders placed in the name of the ordering providers as opposed to Dr. Nava as pt doesn't see or work with Dr. Nava. As a result, [facility] staff did NOT get calls with critical results. RN watched for labs as we have standing orders for blood transfusions. Noted Hgb, called pt, ordered blood, scheduled transfusion, and faxed CBC results to Dr. Govea. Faxed BMP results to Dr. Mayes. Later in the day RN received an order for a plasma potassium from Dr. Govea. RN again printed BMP results and faxed them to Dr. Govea. RN then noted potassium result of 6.2. Called pt and spoke with her , Gian. They will call Dr. Govea to inquire about any action needed with that result. Pt will come to [facility] tomorrow for blood transfusion.
[2023-11-28 09:37] VITALS: BP 128/63; PULSE 107; RESP 16; TEMP 36.5; O2SAT 92
[2023-11-28 10:09] LABS: Potassium* 4.5 mmol/L (3.6-5.1)
[2023-11-28 10:25] VITALS: BP 128/63; PULSE 107; RESP 16; TEMP 36.5; O2SAT 92
[2023-11-28 10:42] VITALS: BP 103/64; PULSE 95; RESP 18; TEMP 36.4; O2SAT 91
[2023-11-28 11:27] VITALS: BP 108/74; PULSE 105; RESP 16; TEMP 36.3; O2SAT 92
[2023-11-28 12:11] VITALS: BP 100/66; PULSE 98; RESP 16; TEMP 36.1; O2SAT 90
[2023-11-28 12:45] VITALS: BP 139/66; PULSE 101; RESP 16; TEMP 36.1
[2023-12-11 10:30] LABS: Basophils Percent Auto 11.8 % (0.0-3.0); Eosinophils Percent Auto 0.3 % (0.0-7.0); Hematocrit 24.8 % (33.0-51.0); Lymphocytes Percent Auto 26.5 % (20-44); Mean Corpuscular HGB Conc 29 gm/dL (32-36); Mean Corpuscular Hemoglobin 28 pg (26-34); Mean Corpuscular Volume 96 fL (80-100); Neutrophils Percent Auto 52.4 % (42.0-72.0); Platelet Count* 902 K/uL (140-440); RDW Coefficient of Variation % 32.7 % (11.5-15.5); Red Blood Count 2.58 m/uL (4.00-5.20)
[2023-12-11 11:17] LABS: Corrected White Blood Count 22.53 K/UL (4.50-11.00); Hemoglobin* 7.3 gm/dL (12.0-16.0); White Blood Count* 108.16 K/uL (4.50-11.00)
[2023-12-11 11:18] LABS: Slide Review Reflex Yes
[2023-12-11 11:24] LABS: Slide Review Acceptable Review (Acceptable)
[2023-12-12 09:19] VITALS: BP 108/56; PULSE 100; RESP 16; TEMP 36.9; O2SAT 92
[2023-12-12 09:40] VITALS: BP 116/68; PULSE 100; RESP 18; TEMP 36.8; O2SAT 91
[2023-12-12 10:25] VITALS: BP 101/64; PULSE 100; RESP 18; TEMP 36.6; O2SAT 94
[2023-12-12 11:25] VITALS: BP 113/73; PULSE 98; RESP 20; TEMP 36.7; O2SAT 94
[2023-12-12 12:08] VITALS: BP 100/65; PULSE 99; RESP 16; TEMP 36.8; O2SAT 94
[2023-12-25 10:39] LABS: Chloride* 105 mmol/L (96-114); Potassium* 4.1 mmol/L (3.6-5.1); Sodium* 139 mmol/L (135-149)
[2023-12-25 10:42] LABS: Anion Gap 4 mEq/L (7-15); Blood Urea Nitrogen* 28 mg/dL (7-30); Carbon Dioxide* 30 mmol/L (20-32); Creatinine* 0.9 mg/dL (0.5-1.5); Estimated Glomerular Filt Rate 76 ml/min
[2023-12-25 10:43] LABS: Calcium* 8.7 mg/dL (8.4-10.6); Glucose* 98 mg/dL (60-115)
[2023-12-25 10:56] LABS: Mean Corpuscular HGB Conc 30 gm/dL (32-36); Mean Corpuscular Hemoglobin 28 pg (26-34); Mean Corpuscular Volume 96 fL (80-100); Platelet Count* 942 K/uL (140-440); RDW Coefficient of Variation % 32.1 % (11.5-15.5)
[2023-12-25 11:40] LABS: Hemoglobin* 7.1 gm/dL (12.0-16.0)
[2023-12-25 11:42] LABS: Corrected White Blood Count 42.74 K/UL (4.50-11.00)
[2023-12-25 11:44] LABS: Slide Review Reflex Yes
[2023-12-25 11:45] LABS: Slide Review Acceptable Review (Acceptable)
--- NOTE | 2023-12-25 13:03 | ONC.NURNOTE ---
Faxed labs to hematology at [facility]. Patient called to give lab results. Appointment made for 1 unit of irradiated PRBCs tomorrow at 0930. Order placed and lab notified.
[2023-12-26 09:28] VITALS: PULSE 100; RESP 16; TEMP 37; O2SAT 93
[2023-12-26 10:16] VITALS: BP 101/55; PULSE 98; RESP 16; TEMP 36.9; O2SAT 93
[2023-12-26 10:34] VITALS: BP 113/63; PULSE 83; RESP 20; TEMP 36.5; O2SAT 93
[2023-12-26 11:19] VITALS: BP 105/69; PULSE 88; RESP 20; TEMP 36.7; O2SAT 92
[2023-12-26 12:42] VITALS: BP 108/74; PULSE 93; RESP 20; TEMP 36.8; O2SAT 94
[2024-01-08 10:08] LABS: Basophils Percent Auto 11.1 % (0.0-3.0); Eosinophils Percent Auto 0.3 % (0.0-7.0); Hematocrit 24.6 % (33.0-51.0); Lymphocytes Percent Auto 33.4 % (20-44); Mean Corpuscular HGB Conc 29 gm/dL (32-36); Mean Corpuscular Hemoglobin 29 pg (26-34); Mean Corpuscular Volume 100 fL (80-100); Monocytes Percent Auto 16.7 % (0.0-11.0); Neutrophils Percent Auto 38.5 % (42.0-72.0); Platelet Count* 846 K/uL (140-440); Red Blood Count 2.47 m/uL (4.00-5.20)
[2024-01-08 10:39] LABS: Hemoglobin* 7.1 gm/dL (12.0-16.0); Slide Review Reflex Yes; White Blood Count* 121.53 K/uL (4.50-11.00)
[2024-01-08 11:43] LABS: Slide Review Acceptable Review (Acceptable)
[2024-01-09 10:00] VITALS: BP 104/63; PULSE 95; RESP 20; TEMP 36.6; O2SAT 91
[2024-01-09 10:10] VITALS: BP 120/68; PULSE 92; RESP 16; TEMP 36.7; O2SAT 90
[2024-01-09 10:11] VITALS: BP 105/67; PULSE 100; RESP 20; TEMP 36.6; O2SAT 96
[2024-01-09 10:19] VITALS: BP 109/69; PULSE 96; RESP 18; TEMP 36.6; O2SAT 91
[2024-01-09 11:06] VITALS: PULSE 92; RESP 18; TEMP 36.6; O2SAT 91
[2024-01-09 12:24] VITALS: PULSE 94; RESP 18; TEMP 36.7; O2SAT 90
--- NOTE | 2024-01-09 15:25 | ONC.NURNOTE ---
Patient refusing to stay 1 hour post blood transfusion-waited 30 minutes
--- NOTE | 2024-01-21 09:46 | ONC.NURNOTE ---
Called patient to let her know that [facility] recieved new orders for CBC and transfusions. This is to be obtained every two weeks. Patient and spouse are in [place] waiting for results. They will contact us with results and plan to schedule going forward.
[2024-02-05 10:34] LABS: Eosinophils Percent Auto 0.3 % (0.0-7.0); Hematocrit 24.5 % (33.0-51.0); Lymphocytes Percent Auto 24.6 % (20-44); Mean Corpuscular HGB Conc 29 gm/dL (32-36); Mean Corpuscular Hemoglobin 31 pg (26-34); Mean Corpuscular Volume 104 fL (80-100); Monocytes Percent Auto 15.2 % (0.0-11.0); Neutrophils Percent Auto 51.9 % (42.0-72.0); Platelet Count* 747 K/uL (140-440); RDW Coefficient of Variation % 32.4 % (11.5-15.5); Red Blood Count 2.35 m/uL (4.00-5.20)
[2024-02-05 10:36] LABS: Chloride* 105 mmol/L (96-114); Potassium* 4.4 mmol/L (3.6-5.1); Sodium* 139 mmol/L (135-149)
[2024-02-05 10:38] LABS: Estimated Glomerular Filt Rate 67 ml/min
[2024-02-05 10:39] LABS: Anion Gap 5 mEq/L (7-15); Blood Urea Nitrogen* 35 mg/dL (7-30); Calcium* 9.1 mg/dL (8.4-10.6); Carbon Dioxide* 29 mmol/L (20-32); Glucose* 111 mg/dL (60-115)
[2024-02-05 10:58] LABS: Hemoglobin* 7.2 gm/dL (12.0-16.0)
[2024-02-05 10:59] LABS: Slide Review Reflex Yes; White Blood Count* 70.35 K/uL (4.50-11.00)
[2024-02-05 11:00] LABS: Slide Review Acceptable Review (Acceptable)
[2024-02-06 11:00] VITALS: BP 94/54; PULSE 90; RESP 16; TEMP 36.1; O2SAT 98
[2024-02-06 11:18] VITALS: BP 94/54; PULSE 90; RESP 16; TEMP 36.1; O2SAT 98
[2024-02-06] MEDS: 0.9 % SODIUM CHLORIDE 250 ml IV (11:25)
[2024-02-06] MEDS: SODIUM CHLORIDE 0.9 % (FLUSH) 10 ML SYRINGE IVF (11:25)
[2024-02-06 11:37] VITALS: BP 102/67; PULSE 107; RESP 16; TEMP 36.6; O2SAT 91
[2024-02-06 12:25] VITALS: BP 117/80; PULSE 104; RESP 16; TEMP 36.4; O2SAT 90
[2024-02-06 13:30] VITALS: BP 96/62; PULSE 100; RESP 15; TEMP 36.1; O2SAT 89
[2024-02-18 09:09] LABS: Basophils Percent Auto 8.5 % (0.0-3.0); Eosinophils Percent Auto 0.3 % (0.0-7.0); Hematocrit 24.5 % (33.0-51.0); Lymphocytes Percent Auto 26.3 % (20-44); Mean Corpuscular HGB Conc 29 gm/dL (32-36); Mean Corpuscular Hemoglobin 30 pg (26-34); Mean Corpuscular Volume 103 fL (80-100); Monocytes Percent Auto 12.5 % (0.0-11.0); Neutrophils Percent Auto 52.4 % (42.0-72.0); Platelet Count* 648 K/uL (140-440); RDW Coefficient of Variation % 32.1 % (11.5-15.5); Red Blood Count 2.38 m/uL (4.00-5.20)
[2024-02-18 09:21] LABS: Chloride* 102 mmol/L (96-114); Potassium* 4.4 mmol/L (3.6-5.1); Sodium* 140 mmol/L (135-149)
[2024-02-18 09:24] LABS: Anion Gap 3 mEq/L (7-15); Blood Urea Nitrogen* 44 mg/dL (7-30); Carbon Dioxide* 35 mmol/L (20-32); Creatinine* 1.1 mg/dL (0.5-1.5); Estimated Glomerular Filt Rate 59 ml/min; Glucose* 109 mg/dL (60-115)
[2024-02-18 09:25] LABS: Calcium* 9.2 mg/dL (8.4-10.6)
[2024-02-18 10:24] LABS: Corrected White Blood Count 45.03 K/UL (4.50-11.00); White Blood Count* 119.32 K/uL (4.50-11.00)
[2024-02-18 10:25] LABS: Hemoglobin* 7.2 gm/dL (12.0-16.0); Slide Review Reflex Yes
[2024-02-18 10:27] LABS: Slide Review Acceptable Review (Acceptable)
[2024-02-19 11:00] VITALS: BP 105/70; PULSE 106; RESP 20; TEMP 36.5; O2SAT 91
[2024-02-19 11:17] VITALS: BP 105/70; PULSE 106; RESP 20; TEMP 36.5; O2SAT 91
[2024-02-19] MEDS: SODIUM CHLORIDE 0.9 % (FLUSH) 10 ML SYRINGE IVF (11:28)
[2024-02-19] MEDS: 0.9 % SODIUM CHLORIDE 250 ml IV (11:28)
[2024-02-19 11:34] VITALS: BP 93/54; PULSE 101; RESP 20; TEMP 36.6; O2SAT 90
[2024-02-19 12:19] VITALS: BP 96/51; PULSE 97; RESP 18; TEMP 36.6; O2SAT 92
[2024-02-19 13:24] VITALS: BP 100/66; PULSE 96; RESP 20; TEMP 36.7; O2SAT 90
[2024-02-19 13:54] VITALS: BP 105/70; PULSE 96; RESP 20; TEMP 36.5; O2SAT 90
--- NOTE | 2024-02-19 13:54 | ONC.NURNOTE ---
Patient refused to stay for the full 60min monitoring post blood transfusion. Did stay for 30min to be monitored.
--- NOTE | 2024-02-19 14:35 | ONC.NURNOTE ---
LOW OXYGEN SATS: Patient ambulated into clinic and was quite short of breath. Saturations were checked and were 85%. Had patient take nice slow deep breaths and improved to 91%. Patient stated she has been working with Cardiology and Sleep Apnea clinic to help with her breathing. Stated she is on 40mg BID of Torsemide now and is trialing a CPAP machine. Infusion was started. Patient remained in the mid 80s SPO2 but would increase to low 90s SPO2 with slow deep breaths. Patient stated she feels more fluid overloaded and bloated and cannot take a deep breath. Hat Brim Curler placed a call into to Dr. Dalton office and spoke with HELENE Ram. Reported vital signs and assessment to RN and she stopped sheet writer mid sentence and told sheet writer to call 911 and send patient via ambulance to the ER. Notified Leanna that there is an ER in our facility but recommended an extra dose of diuretic while patient was here. Per Leanna, they are not able to give orders without physically assessing the patient and recommended that patient be seen in the ER. Hat Brim Curler reported to patient and her what was recommended but they declined to go to the ER as patient stated I feel much better now that I am getting the blood. Educated patient that if she develops worsening shortness of breath, chest pain, Dizziness, nausea that she should go to the nearest ER. Also encouraged patient to elevated legs when able and wear compression stockings per [place]'s recommendation. Also encouraged patient to have a strict bowel regimen given the amount of narcotics she is on so she has more lung space to breath. Lung sounds were clear throughout before and after transfusion. SPO2 did improve to 90-91% without the need to remind patient to breath at the end of the infusion. Recommended that patient follow up with Dr. Mayes who prescribes her diuretic as edema is very much so present. Patients weight has remained the same from 02/05/24 but has trended upward since October and her SPO2 has trended downward since October.
== END 2024-02-24 23:59 | disposition home or self-care (01) ==
LOC: CCIC 11:00
PROVIDERS: Internal Medicine Cardiovascular Disease; Internal Medicine Hematology & Oncology; PCP Internal Medicine; Referring Provider Internal Medicine; Visit Provider Clinical Nurse Specialist
DX: D61.818 Other pancytopenia (principal); D75.81 Myelofibrosis; D47.1 Chronic myeloproliferative disease
CPT/HCPCS: 36415; 36430; 80048; 84132; 85018; 85025; 86850; 86900; 86901; 86922; J7050; P9016

== ENCOUNTER 2024-06-07 12:24 | Outpatient (REF) | payer MEDICARE, MEDICAID, SELFPAY ==
--- OUTSIDE RECORDS SUMMARY | 2024-06-07 12:28 | XMS_ITS | Referral Summary ---
Author Organization [facility] Address [address] [place] [address] Care Team Providers Care Signal Circuit Designer Name Role Phone No Ref-Primary, Physician Primary Care Provider Candida Epps MD Unavailable Allergies Active Allergy Reactions Criticality Noted Date Comments Latex 10/15/2010 PN: Converted from LW Latex Sensitivity Flag Medications oxyCODONE (ROXICODONE) 5 MG immediate release tablet Take 1-2 tablets (5-10 mg) by mouth every 6 hours as needed for moderate to severe pain 30 tablet 0 08/28/2015 Active senna-docusate (SENOKOT-S;ARAM COLACE) 8.6-50 MG per tablet Take 1 tablet by mouth 2 times daily 60 tablet 1 08/28/2015 Active MORPHINE SULFATE PO Take 60 mg by mouth 2 times daily (Takes 15 mg extra BID if not working) Active LORAZEPAM PO Take 0.5 mg by mouth every 6 hours as needed for anxiety Active ibuprofen (ADVIL/MOTRIN) 200 MG tablet Take 200 mg by mouth every 6 hours as needed for mild pain (headaches) Active Sodium Bicarbonate-Cit devi Acid (VASYL-SELTZER HEARTBURN PO) Take 1 tablet by mouth Active sodium-potassiu m bicarbonate-cit devi acid (VASYL-SELTZER GOLD) 4251-364-4731 MG TBEF solu-tab Take 1 tablet by mouth Active folic acid (FOLVITE) 1 MG tablet 07/01/2019 Active Active Problems Problem Noted Date Diagnosed Date Myeloproliferative disorder 02/10/2017 Immunizations Name Administration Dates Next Due HIB (PRP-T) 02/04/2019(Deferred: Contraindication - not available in clinic.) Meningococcal (Menomune ) 02/04/2019(Deferred: Contraindication - not available in clinic) Pneumococcal [...] School Help Needed Not on file 04/20 Comments No Sex and Gender Information Value Date Recorded Sex Assigned at Not on file Legal Sex Female 4:16 AM CORRECTIONAL OFFICER SERGEANT Gender Identity Not on file Sexual Orientation Not on file Last Filed Vital Signs Vital Sign Reading Time Taken Comments Blood Pressure 118/72 05/29/2020 2:20 PM CORRECTIONAL OFFICER SERGEANT Pulse 63 05/29/2020 2:20 PM CORRECTIONAL OFFICER SERGEANT Temperature 36.4 C (97.6 F) 05/29/2020 2:20 PM CORRECTIONAL OFFICER SERGEANT Respiratory Rate 16 05/29/2020 2:20 PM CORRECTIONAL OFFICER SERGEANT Oxygen Saturation 98% 05/29/2020 1:09 PM CORRECTIONAL OFFICER SERGEANT Inhaled Oxygen Concentration - - Weight 92.5 kg (203 lb 14.4 oz) 07/29/2019 9:51 AM CORRECTIONAL OFFICER SERGEANT Height 169.5 cm (5' 6.75) 07/29/2019 9:51 AM CS T Body Mass Index 32.17 07/29/2019 9:51 AM CORRECTIONAL OFFICER SERGEANT Plan of Treatment Not on file Care Teams Signal Circuit Designer Relationship Specialty Start Date End Date No Ref-Primary, Physician PCP - General 09/30/17 Candida Epps MD Internal Medicine 01/15/19
--- OUTSIDE RECORDS SUMMARY | 2024-06-07 12:28 | XMS_ITS | Encounter Summary ---
Author Organization [facility] Address [address] [place] [id number] Care Team Providers Care Electronics Processing Supervisor Name Role Phone No Ref-Primary, Physician Primary Care Provider Candida Epps MD Unavailable Shala Bell RN Unavailable Unavailable Ronaldo jones MD Unavailable [phone] Candida Epps MD Unavailable Boaz Garcia MD Unavailable [phone] Rodrick Turner MD Unavailable Reason for Visit * Reason Onset Date Comments Appointment 07/02/2019 Encounter Details Date Type Department Care Team (Late st Contact Info) Description 07/02/[address] [address] Barbara Caballero MD [address] [place] [id number] Appointment Social History Tobacco Use Types Packs/Day Years Used Date Smoking Tobacco: Former Cigarettes Q uit: 09/27/2012 Smokeless Tobacco: Never Comments:quit September 27, 2012 Alcohol Use Standard Drinks/Week Comments Yes 0 (1 standard drink = 0.6 oz pur e alcohol) 1 drink per week PHQ-2 Answer Date Recorded PHQ-2 Score 2 02/04/2019 Comments No Sex and Gender Information Value Date Recorded Sex Assigned at Not on file Legal Sex Female 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 [facility] has faxed over notes in regards to the patient. Phone number to reach patient: Home number on file [phone] (home) Best Time: anytime Can we leave a detailed message on this number? YES CIATE PROFESSOR OF HISTORY documented in this encounter Plan of Treatment Not on file documented as of this encounter Visit Diagnoses Not on filedocumented in this encounter Care Teams Electronics Processing Supervisor Relationship Specialty Start Date End Date No Ref-Primary, Physician PCP - General 09/30/17 Candida Epps MD Internal Medicine 01/15/19 Shala Bell, HELENE Specialty Sanitation Inspector Hematology & Oncology 01/15/19 07/23/21 Ronaldo Cheatham MD [address] [facility] [address] [place], [place] [id number] Assigned Heart and Vascular Provider 05/05/20 09/09/20 Candida Epps MD [facility] [address] [place] [address] Assigned Cancer Care Provider 05/05/20 07/22/20 Boaz Garcia MD [address] [facility] [address] [place] [address] Assigned Surgical Provider 05/05/20 01/25/21 Rodrick Turner MD [address] [facility] [address] [place] [address] Assigned Sleep Provider 05/05/20 documented as of this encounter
--- OUTSIDE RECORDS SUMMARY | 2024-06-07 12:28 | XMS_ITS | Encounter Summary ---
Author Organization [facility] Address [address] [place] [address] Care Team Providers Care Hand Worker Name Role Phone Ab Patterson MD Primary Care Provider [phone] Encounter Details Date Type Department Care Team (Late st Contact Info) Description 12/13/2015 Outside Hospital External to [facility], Provider HISTORY AND PHYSICAL Social History [...] on filedocumented in this encounter Care Teams Hand Worker Relationship Specialty [place] [address] [place] [address] PCP - General Family Practice 11/30/15 documented as of this encounter
--- OUTSIDE RECORDS SUMMARY | 2024-06-07 12:28 | XMS_ITS | Clinical Summary ---
Author Organization [facility] Address [place], [place] [address] Care Team Providers Care Chemical Waste Management Technician Name Role Phone None Primary Care Provider [...] Take 1 mg by mouth once daily. 09/19/2020 Active allopurinoL (ZYLOPRIM) 300 mg tablet Take 300 mg by mouth once daily. 09/18/2020 Active LORazepam (ATIVAN) 0.5 mg tab Take 0.5 mg by mouth 4 times daily if needed. Active morphine CONTROLLED-RELEASE (MS CONTIN) 15 mg tablet Take 15 mg by mouth one time if needed. 09/18/2020 Active morphine CONTROLLED RELEASE (MS CONTIN) 60 mg tablet Take 1 Tablet by mouth 2 times daily. 01/26/2019 Active Stimulant Laxative Plus 8.6-50 mg tablet Take 8.6-50 Tablets by mouth 2 times daily. 04/01/2020 Active sennosides-docusat e, 8.6-50 mg, (SENOKOT S) 8.6-50 mg tablet Take 1 Tablet by mouth 2 times daily if needed. Active Senna 8.6 mg tablet Take 8.6 mg by mouth 2 times daily. 08/18/2020 Active sodium/potassium bicarbonate citric acid (VASYL-SELTZER GOLD) tablet Take 1 Tablet by mouth each time if needed. Active pantoprazole (PROTONIX) 40 mg delayed-release tablet Take 40 mg by mouth once daily. 12/30/2019 Active Active Problems Problem Noted Date [...] Comments Blood Pressure 113/66 05/24/2021 1:18 PM MASTER DYER Pulse 111 05/24/2021 1:18 PM MASTER DYER Temperature 36.2 C (97.1 F) 05/24/2021 1:18 PM MASTER DYER Respiratory Rate 20 05/24/2021 1:18 PM MASTER DYER Oxygen Saturation 94% 05/24/2021 11:07 AM MASTER DYER Inhaled Oxygen Concentration - - Weight 92.1 [...] (1 of 2) 2018 COVID-19 vaccine series (2023- season) 2024 12/05/2020, 11/07/2020 Influenza for age 50-64 03/14/2024 Pneumococcal series for age 6-64 Aged Out No longer eligible b ased on patient's age to complete this topic Care Teams Chemical Waste Management Technician Relationship Specialty Start Date End Date None . PCP - General 10/03/20
--- OUTSIDE RECORDS SUMMARY | 2024-06-07 12:28 | XMS_ITS | Clinical Summary ---
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 For routine questions regarding patient records, call [phone] during business hours, M-F 8:00 AM - 5:00 PM Central Time. Record requests for emergency care only can be directed to [phone] at any time.[facility] Allergies No known active allergies Medications * This document contains information received from the source organization and may not represent a complete record from that organization. sennosides (SENOKOT) 8.6 mg tablet Take 2 tablets by mouth at bedtime as needed. 6 Active sodium-potassium bicarbonate (VASYL-SELTZER GOLD) 344-1,050-1,000 mg tablet, effervescent Take 1 tablet by mouth daily as needed (upset stomach). Active UNABLE TO FIND Med Name: Cannabis- patient's reports this is newly prescribed for her and as of 03/11/22, has not yet started. Reports patient will have gummies as well as a tablet, have not picked these up yet. Strength of these is not known because they are new for her. Active acetaminophen (TYLENOL) 500 mg tablet Take 2 tablets (1,000 mg total) by mouth every 6 (six) hours as needed for pain (Do not exceed 4000mg/day.). 2 Active oxyCODONE (ROXICODONE) 5 mg immediate release tabletIndication s:Acute Pain Exception Take 1 tablet (5 mg total) by mouth 2 (two) times a day Indication: Acute Pain Exception. 8 tablet 2 Active Additional Information Patient taking differently:5 mg oral 2 times daily,(No indications reported), Reported on 03/31/2024 morphine (MS CONTIN) 30 mg ER tablet Take 30 mg by mouth 2 (two) times a day. 3 Active morphine (MS CONTIN) 15 mg ER tablet TAKE 1 TABLET BY MOUTH EVERY 12 HOURS FOR PAIN 3 Active buPROPion XL (WELLBUTRIN XL) 150 mg 24 hr tablet Take 150 mg by mouth daily. 3 Active allopurinoL (ZYLOPRIM) 300 mg tablet take 1 tablet by mouth daily 90 tablet 3 3 Active RX WELCOME PACKET-SPECIALTY -OP ONLY Welcome packet 1 each 07/28/2023 2:07 PM MANAGER PRESENTATION 4 Active sildenafil (REVATIO) 20 mg tablet Take 1 tablet (20 mg total) by mouth 3 (three) times a day. 90 tablet 11 4 07/29/19 25 Active diphenhydrAMINE- acetaminophen (TYLENOL PM) 25-500 mg per tablet Take 2 tablets by mouth at bedtime as needed for sleep. Active predniSONE (Deltasone) 20 mg tablet Take 1 tablet by mouth 2 (two) times a day. 4 Active omeprazole (PriLOSEC) [address] capsule Take 1 capsule (20 mg total) by mouth daily. 90 capsule 3 4 Active hydroxyurea (Hydrea) 500 mg capsule TAKE 1 CAPSULE BY MOUTH TWICE DAILY AT THE SAME TIME EVERY DAY 180 capsule 1 4 Active DME CPAPIndications: Obstructive Sleep Apnea Adult DME Order 1 each 4 Active torsemide (Demadex) 20 mg tablet Take 2 tablets (40 mg total) by mouth 2 (two) times a day. 120 tablet 4 03/05/20 25 Active Active Problems Patient Care Coordination No te [...] follow up with your provider, Contact RN school child care attendant for sudden weight gain or worsening symptoms/side effects, and Contact EMS for emergent conditions Current functional limitations: Class III: symptoms with less than ordinary physical activity and significant limitations with physical activity Assistive devices/DME used: Current Community Resources: outpatient lab, [facility] Problem Noted Date Diagnosed Date Myelofibrosis 04/06/2024 Secondary Pulmonary Arterial Hypertension 2022 Anemia Of Chronic Disease 03/12/2022 Chronic Pain Syndrome 03/12/2022 Dyspnea On Exertion 06/29/2021 Overview (06/29/2021): Added automatically from request for surgery [id number] Hypertension Pulmonary 06/11/2021 Hyperuricemia 06/08/2021 Edema 06/08/2021 Elevated Creatinine 06/08/2021 Gastroesophageal Reflux Disease 06/08/2021 Splenomegaly Acquired 06/06/2021 Overview (06/06/2021): Added automatically from request for surgery [id number] Pancytopenia 06/06/2021 Fluid Overload Unspecified 06/06/2021 Anxiety 06/06/2021 Insomnia 06/06/2021 Tachycardia Sinus 06/06/2021 Hyperphosphatemia 06/06/2021 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 Myelofibrosis Primary (HCC) (Primary Dx) 06/01/2024 Clinical Communication Division of Hematology in [place], [place] [address] [place] [phone] Janusz Govea M.B.B.S. hemoglobin decrease 05/31/2024 Orders Only Division of Hematology in [place], [place] [address] [phone] External, Ordering Provider, M.DZahraa 05/24/2024 Orders Only Division of Hematology in [place], [place] [address] [phone] External, Ordering Provider, M.Juan 05/20/2024 Orders Only Division of Hematology in [place], [place] [address] [place] [phone] External, Ordering Provider, M.Juan 05/19/2024 Clinical Communication Department of Cardiovascular Medicine in [place], [place] [address] [place] [phone] Matthew Mayes 05/13/2024 Orders Only Division of Hematology in [place], [place] [address] [place] [phone] External, Ordering Provider, M.DZahraa 05/05/2024 Orders Only Division of Hematology in [place], [place] [address] [place] [phone] External, Ordering Provider, M.Juan 05/05/2024 Clinical Communication Division of Hematology in [place], [place] [address] [phone] Janusz Govea M.B.B.S. Rash 04/29/2024 Orders Only Division of Hematology in [place], [place] [address] [phone] External, Ordering Provider, M.Juan 04/28/2024 Orders Only [facility] in [place], [place] [address] [place] [phone] Eliana Vargas M.D. 04/27/2024 4:00 PM CDT Office Visit Department of Cardiovascular Medicine in [address] [phone] Matthew Mayes M.D. Regurgitation Tricuspid (Primary Dx); Gastroesophageal Reflux Disease; Splenomegaly Acquired; Myelofibrosis Primary (HCC); Chronic Pain Syndrome; Failure Heart Right (HCC); Hypertension Pulmonary (HCC); Myelofibrosis (HCC); Dyspnea On Exertion; Obesity Body Mass Index 30-39.9 Adult 04/27/2024 9:00 AM CDT - 04/27/2024 10:15 AM CDT Surgery Division of Cardiovascular Diseases in [address] [phone] Matthew Mayes M.D. NITRIC OXIDE STUDY 04/27/2024 7:56 AM CDT - 04/27/2024 10:33 AM CDT Hospital Encounter Division of Cardiovascular Diseases in [address] [phone] Matthew Mayes M.D. Hypertension Pulmonary (HCC); Myelofibrosis (HCC); Dyspnea On Exertion Discharge Disposition: Home or Self Care 04/26/2024 2:10 PM CDT - 04/26/2024 11:59 PM CDT Hospital Encounter Department of Laboratory Medicine in [address] [phone] Matthew Mayes M.D. Dyspnea On Exertion; Hypertension Pulmonary Primary (HCC) Discharge Disposition: Home or Self Care 04/22/2024 2:30 PM CDT Virtual Visit Department of Cardiovascular Medicine in [place], [place] [address] [phone] Matthew Mayes M.D. McDonald, Cheryl L, REstefania Regurgitation Tricuspid (Primary Dx); Hypertension Pulmonary (HCC); Myelofibrosis (HCC); Dyspnea On Exertion; Failure Heart Right (HCC) 04/22/2024 Clinical Communication Division of Hematology in [place], [place] [address] [place] [phone] Janusz Govea M.B.B.S. 04/22/2024 Orders Only Division of Hematology in [place], [place] [address] [phone] External, Ordering Provider, MKathleen 04/22/2024 Orders Only Department of Cardiovascular Medicine in [place], [place] [address] [place] [address] Denita Chavez R.N. Dyspnea On Exertion (Primary Dx); Hypertension Pulmonary Primary (HCC) 04/20/2024 Clinical Communication Division of Hematology in [place], [place] [address] [place] [address] Janusz Govea M.B.B.S. Order Request 04/19/2024 Orders Only Division of Hematology in [place], [place] [address] [place] [address] External, Ordering Provider, Dewayne 04/16/2024 Clinical Communication Division of Hematology in [place], [place] [address] [place] [address] Janusz Govea M.B.B.S. Blood request 04/15/2024 Clinical Communication Division of Hematology in [place], [place] [address] [place] [address] Janusz Govea M.B.B.S. 04/14/2024 Orders Only Division of Hematology in [place], [place] [address] [place] [address] External, Ordering Provider, Dewayne 04/06/2024 Documentation Department of Cardiovascular Medicine in [place], [place] [address] [place] [address] Matthew Mayes M.D. Edema 04/06/2024 Orders Only Department of Cardiovascular Medicine in [place], [place] [address] [phone] Matthew Mayes M.D. Hypertension Pulmonary (HCC) (Primary Dx); Myelofibrosis (HCC); Dyspnea On Exertion; Regurgitation Tricuspid 04/01/2024 Clinical Communication Isidro Woodward [facility] [place] [facility] in [place], [place] [address] [place] [address] Matthew Mayes M.D. [facility] states cannot do regimen any more. 04/01/2024 Clinical Communication Division of Hematology in [place], [place] [address] [place] [phone] Janusz Govea M.B.B.SZahraa Michelle Wants A Call Today 03/31/2024 2:30 PM CDT Infusion Department of Infusion Therapy in [address] [phone] Janusz Govea M.B.B.SZahraa Myelofibrosis Primary (HCC) (Primary Dx) 03/31/2024 1:28 PM CDT - 03/31/2024 11:59 PM CDT Hospital Encounter Department of Laboratory Medicine in [address] [phone] Janusz Govea M.B.B.S. Myelofibrosis Primary (HCC) Discharge Disposition: Home or Self Care 03/30/2024 Clinical Communication Division of Hematology in [place], [place] [address] [place] [phone] Janusz Govea M.B.B.SZahraa 03/30/2024 Orders Only Division of Hematology in [place], [place] [address] [place] [phone] External, Ordering ProviderDewayne 03/30/2024 Clinical Communication Department of Infusion Therapy in [address] [phone] Cordelia Claros R.N. Appt Request 03/29/2024 Orders Only Division of Hematology in [place], [place] [address] [place] [phone] Janusz Govea M.B.B.SZahraa Myelofibrosis Primary (HCC) (Primary Dx) 03/29/2024 Clinical Communication Division of Hematology in [place], [place] [address] [place] [phone] Janusz Govea M.B.BZahraaS. Order Request 03/25/2024 Clinical Communication [facility] in [place], [place] [address] [place] [phone] Eliana Vargas M.D. 03/18/2024 Orders Only Division of Hematology in [place], [place] [address] [place] [address] External, Ordering ProviderDewayne 03/09/2024 12:30 PM CDT Infusion Department of Infusion Therapy in [address] [phone] Janusz Govea M.B.B.S. Myelofibrosis Primary (HCC) (Primary Dx) 03/09/2024 11:15 AM CDT - 03/09/2024 11:59 PM CDT Hospital Encounter Department of Laboratory Medicine in [address] [phone] Janusz Govea M.B.B.SZahraa Myelofibrosis Primary (HCC) Discharge Disposition: Home or Self Care from Last 3 Months Immunizations Name Administration [...] Date Smoking Tobacco: Former Cigarettes 1 26 1 2012 Passive Smoke Exposure: Never Smokeless Tobacco: Never Tobacco Cessation:Counseling Given: Not Answered Comments:still smokes marijuana Alcohol Use Standard Drinks/Week Comments Yes 0 (1 standard drink = 0.6 oz pur e alcohol) occasional PHQ-2 Answer Date Recorded PHQ-2 Score 0 07/24/2021 Nutrition Answer Date Recorded Nutrition: EVOO Fat Source 13 02/07 Nutrition: Servings of Fruits/Vegetables per Day Not on file 02/08/2020 Dental Answer Date Recorded Dental: Regular Dentist Unknown 09/06/19 21 Comments No Sex and Gender Information Value Date Recorded Sex Assigned at Female 07/24/2021 11:03 AM MANAGER PRESENTATION Legal Sex Female 9:12 PM MANAGER PRESENTATION Gender Identity Female 07/24/2021 11:03 AM MANAGER PRESENTATION Sexual Orientation Straight 07/24/2021 11 :03 AM MANAGER PRESENTATION Last Filed Vital Signs Vital Sign Reading Time Taken Comments Blood Pressure 119/51 04/27/2024 10:15 AM CDT Pulse 100 04/27/2024 10:30 AM CDT Temperature 36.6 C (97.9 F) 04/27/2024 8:47 AM CDT Respiratory Rate 20 04/27/2024 9:43 AM CDT Oxygen Saturation 94% 04/27/2024 10:30 AM CDT Inhaled Oxygen Concentration - - Weight 123 kg (270 lb 11.6 oz) 04/27/2024 8:47 A M CDT Height 171 cm (5' 7.32) 04/27/2024 8:47 AM CDT Body Mass Index 42 04/27/2024 8:47 AM CDT Plan of Treatment Upcoming Encounters Date Type Department Care Team (Latest Contact Info) Description 07/08/2024 8:15 AM MANAGER PRESENTATION Clinical Communication Virtual Review in [place], [place] [address] [place] [address] 07/09/2024 3:00 PM MANAGER PRESENTATION Office Visit Center for [facility] Medicine in [place], [place] [address] [place] [phone] Eliana Vargas M.D. [address] [place] [phone] 07/16/2024 8:30 AM MANAGER PRESENTATION Appointment Department of Laboratory Medicine and Pathology, [facility], in [place], [place] [address] [place] [phone] Matthew Mayes M.D. [address] [place] [phone] 07/16/2024 11:00 AM MANAGER PRESENTATION Clinical Support Department of Nutrition and Diabetes Education in [place], [place] [address] [place] [phone] Matthew Mayes M.D. [address] [place] [phone] Karmen Zambrano RDN, LD [address] [place] [phone] 07/16/2024 12:30 PM MANAGER PRESENTATION Appointment Department of Cardiac Rehabilitation in [place], [place] [address] [place] [phone] Matthew Mayes M.D. [address] [place] [phone] 07/16/2024 2:00 PM MANAGER PRESENTATION Office Visit Department of Cardiovascular Medicine in [place], [place] [address] [place] [phone] Matthew Mayes M.D. [address] [place] [phone] Health Maintenance Due Date Last Done Comments CT Colonography 1968 Cologuard 1968 Colonoscopy 1968 Colorectal Cancer Screening 1968 FIT 1968 Generalized Anxiety (DUTCH-7) 1968 HIV Screening 1968 Hepatitis C Screening 1968 Mammogram 1968 Hepatitis B Vaccines (1 of 3 - 19+ 3-dose series) 1987 Zoster Vaccines (1 of 2) 1987 DTaP,Tdap,and Td Vaccines (1 - Tdap) 08/24/1998 08/23/1998 Controlled Substance Agreement 02/19/2019 Controlled Substance Monitoring (PHQ-9) 02/19/2019 Controlled Substance Monitoring 02/19/2019 Opioid Risk Tool (ORT) 02/19/2019 PEG assessment for Opioid therapy 02/19/2019 Cervical/Vaginal Cancer Screening 04/11/2019 04/11/2016 Opioid Use Disorder (OUD) Screening 02/20/2020 Lipid (Cholesterol) Screening 05/01/2021 05/01/2016 MenB Vaccine (2 of 4 - Increased Risk Bexsero 2-dose series) 07/04/2021 06/06/2021 Meningococcal Vaccine (2 - Risk 2-dose series) 08/01/2021 06/06/2021 Pneumococcal vaccine (0-64 years) (2 of 2 - PPSV23 or PCV20) 08/01/2021 06/06/2021 Lung Cancer Screening 06/07/2022 06/07/2021 Depression Screening (Annual PHQ-2) 07/14/2023 COVID-19 Vaccine ( season) 2024 05/17/2022, 03/04/2022, 06/16/2021, Additional history exists Influenza Vaccine (#1) 2024 , 05/17/2022, 06/06/2021, Additional history exists Creatinine Level (Kidney Function Test) 04/26/2025 04/26/2024, 01/21/2024, 11/03/2023, Additional history exists Potassium Level 04/26/2025 04/26/2024, 01/11, 07/30/2023, Additional history exists Sodium Level 04/26/2025 04/26/2024, 01/11, 11/03/2023, Additional history exists Fasting Glucose for Diabetes Screening 04/26/2027 04/26/2024, 01/21/2024, 11/03/2023, Additional history exists HIB Vaccines Completed 06/06/2021 IPV Vaccines Aged Out No longer eligi ble based on patient's age to complete this topic Medical Devices Implanted Type Area Green Jobs Trainer Device Identifier Shelf Expiration Date Model / Serial / Lot Allyson Corey - [id number] Implanted:Qty : 1 on 03/13/2022 by Hema Rothman M.D. at [facility] Hardware e.g. pins/screws/ rods N/A: [employer] [id number] / / Allyson Corey Md - [id number] Implanted:Qty : 1 on 03/13/2022 by Hema Rothman M.D. at [facility] Hardware e.g. pins/screws/ rods N/A: Abdomen [employer] [id number] / / Procedures Procedure Name Priority Date/Time Associated Diagnosis Comments CBC WITH DIFFERENTIAL, B Routine 05/31/2024 9:56 AM MANAGER PRESENTATION CBC WITH DIFFERENTIAL, B Routine 05/24/2024 9:41 AM MANAGER PRESENTATION CBC WITH DIFFERENTIAL, B Routine 05/20/2024 10:11 AM MANAGER PRESENTATION CBC WITH DIFFERENTIAL, B Routine 05/13/2024 10:15 AM CDT CBC WITH DIFFERENTIAL, B Routine 05/06/2024 11:27 AM CDT CBC WITH DIFFERENTIAL, B Routine 05/05/2024 10:23 AM CDT CBC WITH DIFFERENTIAL, B Routine 04/29/2024 10:23 AM CDT CBC WITH DIFFERENTIAL, B Routine 04/29/2024 10:23 AM CDT CARDIAC CATHETERIZATION Routine 04/27/2024 9:35 AM CDT Hypertension Pulmonary (HCC) Myelofibrosis (HCC) Dyspnea On Exertion CARDIAC CATHETERIZATION Routine 04/27/2024 9:35 AM CDT Hypertension Pulmonary (HCC) Myelofibrosis (HCC) Dyspnea On Exertion ECG STAT 04/27/2024 8:51 AM CDT MORPHOLOGY EVALUATION Routine 04/26/2024 2:25 PM CDT MANUAL DIFFERENTIAL, B Routine 2:25 PM CDT BASIC METABOLIC PANEL, S/P Routine 04/26/2024 2:25 PM CDT Dyspnea On Exertion Hypertension Pulmonary Primary (HCC) CBC WITHOUT DIFFERENTIAL, B Routine 04/26/2024 2:25 PM CDT Dyspnea On Exertion Hypertension Pulmonary Primary (HCC) CBC WITH DIFFERENTIAL, B Routine 04/22/2024 11:09 AM CDT CBC WITH DIFFERENTIAL, B Routine 04/19/2024 11:34 AM CDT CBC WITH DIFFERENTIAL, B Routine 04/14/2024 10:16 AM CDT MORPHOLOGY EVALUATION Routine 03/31/2024 1:40 PM CDT MANUAL DIFFERENTIAL, B Routine 1:40 PM CDT CBC WITH DIFFERENTIAL, B Routine 03/31/2024 1:40 PM CDT Myelofibrosis Primary (HCC) CBC WITH DIFFERENTIAL, B Routine 03/30/2024 8:52 AM CDT CBC WITH DIFFERENTIAL, B Routine 03/18/2024 10:20 AM CDT CBC WITH DIFFERENTIAL, B Routine 03/18/2024 10:20 AM CDT MORPHOLOGY EVALUATION Routine 03/09/2024 11:32 AM CDT MANUAL DIFFERENTIAL, B Routine 11:32 AM CDT CBC WITH DIFFERENTIAL, B Routine 03/09/2024 11:32 AM CDT Myelofibrosis Primary (HCC) CT CHEST ANGIOGRAM WITH IV CONTRAST RAD - Semiurgent (Fast; most ED patients; some inpatients) 06/07/2021 10:15 AM MANAGER PRESENTATION LIPID PANEL, S Routine 05/01/2016 7:23 AM CDT from Last 3 Months or Most Recently Relevant to Health Maintenance Results * (ABNORMAL) CBC with Differential, Blood (05/31/2024 9:56 AM MANAGER PRESENTATION) Only the most recent of16 resultswithin the time period is included. EXT MCV 98 80 - 100 fL [facility] [place]) EXT Platelet Count 650(H) 140 - 440 K/uL [facility] [place]) EXT Neutrophils 14.50(H) 1.7 - 7.0 K/uL [facility] [place]) EXT Lymphocytes 5.80(H) 0.90 - 2.90 K/uL [facility] [place]) EXT Monocytes 5.40(H) 0.00 - 0.90 K/UL [facility] [place]) EXT Basophils 3.30(H) 0.00 - 0.30 K/uL [facility] [place]) EXT Leukocytes 72.38(H) 4.50 - 11.00 K/uL [facility] [place]) EXT RBC 2.41(L) 4.00 - 5.20 MIL/UL [facility] [place]) EXT Hemoglobin 6.9(L) 12 - 16 gm/dL [facility]) EXT Hematocrit 23.5(L) 33 - 51 % [facility]) EXT Eosinophils 0.10 0.00 - 0.50 K/uL [facility] [place]) 05/31/2024 9:56 AM MANAGER PRESENTATION Narrative [facility]) - 05/31/2024 10:47 AM MANAGER PRESENTATION External results verified in Extract by Jocelyne Lang on 06/01/2024 at 03:21 PM. Xuan us Ordering Provider External M.DZahraa LAB BLOOD ADD-ON Final Result [facility] [address] [place] [address], [facility] [phone] * NITRIC OXIDE STUDY, RIGHT HEART CATHETERIZATION (04/27/2024 9:35 AM CDT) Anatomical Region Laterality Modality X-Ray Angiograph y 04/27/2024 9:23 AM CDT Impressions 04/27/2024 11:48 AM CDT indicative of severely elevated right and left heart filling pressures with severely elevated pulmonary artery pressure, mildly elevated PVR, and high cardiac output state in context of severe anemia. Systemic hypoxemia. RADIATION DOSE DATA Procedure cumulative skin dose (mGy): 5.75 Procedure cumulative dose area product (Gy-cm2): 0.57 Fluoro Time (Min): 0.99 For the complete report, see the Order-Level Documents. Narrative 04/27/2024 11:48 AM CDT For the complete report, see the Order-Level Documents. PROCEDURE TYPES 1. NITRIC OXIDE STUDY 2. HEART CATHETERIZATION - RIGHT FINAL DIAGNOSIS 1. Severe pulmonary hypertension 2. Drug intervention 3. High cardiac output failure 4. Tricuspid valve regurgitation PRE-PROCEDURE DIAGNOSIS 1. Hypertension Pulmonary (HCC) 2. Myelofibrosis (HCC) 3. Dyspnea On Exertion HEMODYNAMICS SUMMARY Severely elevated RA mean pressure. Elevated RA v-wave pressure. V-wave compatible with TR. Baseline RA 18 PA 73/31/47 PAWP 18 CO/CI 9.9/4.3 PVR 2.9 GARIBAY art sat 86% PA sat 46% Nitric oxide RA 18 PA 63/27/44 PAWP 19 CO/CI 11.4/4.9 PVR 2.2 GARIBAY art sat 80% PA sat 45% Procedure Note Matthew Mayes M.D. - 04/27/2024 For the complete report, see the Order-Level Documents. PROCEDURE TYPES 1. NITRIC OXIDE STUDY 2. HEART CATHETERIZATION - RIGHT FINAL DIAGNOSIS 1. Severe pulmonary hypertension 2. Drug intervention 3. High cardiac output failure 4. Tricuspid valve regurgitation PRE-PROCEDURE DIAGNOSIS 1. Hypertension Pulmonary (HCC) 2. Myelofibrosis (HCC) 3. Dyspnea On Exertion HEMODYNAMICS SUMMARY Severely elevated RA mean pressure. Elevated RA v-wave pressure. V- wavecompatible with TR. Baseline RA 18 PA 73/31/47 PAWP 18 CO/CI 9.9/4.3 PVR 2.9 GARIBAY art sat 86% PAsat 46% Nitric oxide RA 18 PA 63/27/44 PAWP 19 CO/CI 11.4/4.9 PVR 2.2 GARIBAY art sat80% PA sat 45% Findings indicative of severely elevated right and left heart fillingpressures with severely elevated pulmonary artery pressure, mildlyelevated PVR, and high cardiac output state in context of severe anemia.Systemic hypoxemia. RADIATION DOSE DATA Procedure cumulative skin dose (mGy): 5.75 Procedure cumulative dose area product (Gy-cm2): 0.57 Fluoro Time (Min): 0.99 For the complete report, see the Order-Level Documents. Matthew Mayes M.D. CV CARDIAC CATH PROCEDURES Final Result * ECG 12 Lead (04/27/2024 8:51 AM CDT) Ventricular Rate ECG/Min 92 BPM MUSE AK Interval 156 ms MUSE QRSD Interval 80 ms MUSE QT Interval 366 ms MUSE QTC Interval 452 ms MUSE P Scre[place] -4 degrees MUSE R [place] 91 degrees MUSE T Wave [place] -16 degrees MUSE 04/27/2024 8:51 AM CDT 04/27/2024 8:57 AM CDT Impressions MUSE - 04/27/2024 8:57 AM CDT Normal sinus rhythm with sinus arrhythmia Rightward axis ST and T wave abnormality, consider inferolateral ischemia When compared with ECG of 15-Mar-2022 23:26, T wave inversion now evident in Inferior leads Reviewed by REG Stafford Narrative Procedure Note Frankie Moreau M.D. - 04/27/2024 IMPRESSION: Normal sinus rhythm with sinus arrhythmia Rightward axis ST and T wave abnormality, consider inferolateral ischemia When compared with ECG of 15-Mar-2022 23:26, T wave inversion now evident in Inferior leads Reviewed by REG Stafford Matthew Mayes M.D. ECG ORDERABLES Final Resul t MUSE NA * (ABNORMAL) Morphology Evaluation (04/26/2024 2:25 PM CDT) Only the most recent of3 resultswithin the time period is included. RBC Morphology See Specific Findings 04/26/2024 4:16 PM CDT CNFL PLT Morphology See Specific Findings 04/26/2024 4:16 PM CDT CNFL PLT Estimate Increased(A ) Adequate 04/26/2024 4:16 PM CDT CNFL Anisocytosis Marked(A) 04/26/2024 4:16 PM CDT CNFL Basophilic Stippling Slight(A) 04/26/2024 4:16 PM CDT CNFL Dimorphic RBC Present(A) Not Seen 04/26/2024 4:16 PM CDT CNFL Elliptocytes Slight(A) Not Seen 04/26/2024 4:16 PM CDT CNFL Large PLT Present(A) Not Seen 04/26/2024 4:16 PM CDT CNFL Macrocytosis Slight(A) Not Seen 04/26/2024 4:16 PM CDT CNFL Microcytosis Moderate(A) Not Seen 04/26/2024 4:16 PM CDT CNFL Polychromasia Slight(A) Not Seen 04/26/2024 4:16 PM CDT CNFL Poikilocytosis Moderate(A) Not Seen 4:16 PM CDT CNFL Schistocytes Slight(A) None Seen 04/26/2024 4:16 PM CDT CNFL Target Cells Slight(A) Not Seen 04/26/2024 4:16 PM CDT CNFL Blood 04/26/2024 2:25 PM CDT 04/26/2024 2:27 PM CDT us Matthew Mayes M.D. LAB BLOOD ADD-ON Final Resu lt [facility] [address] [place] [address], [facility] CNFL [facility] in [address] [address] * (ABNORMAL) Manual Differential, Blood (04/26/2024 2:25 PM CDT) Only the most recent of3 resultswithin the time period is included. Pathologist [facility] Segmented Neutrophils 70 50 - 75 % 04/26/2024 4:08 PM CDT CNFL Lymphocytes % 3(L) 18 - 42 % 04/26/2024 4:08 PM CDT CNFL Monocytes 1(L) 2 - 11 % 04/26/2024 4:08 PM CDT CNFL Eosinophils 1 1 - 3 % 04/26/2024 4:08 PM CDT CNFL Metamyelocytes 8(H) <1 % 04/26/2024 4:08 PM CDT CNFL Myelocytes 14(H) <0.5 % 04/26/2024 4:08 PM CDT CNFL Promyelocytes 1(H) <1 % 04/26/2024 4:08 PM CDT CNFL Blasts 2(H) <1 % 04/26/2024 4:08 PM CDT CNFL Nucleated RBC 94 /100 WBC 04/26/2024 4:08 PM CDT CNFL Manual Absolute Neutrophil Count 31.22(H) 1.56 - 6.45 x10(9)/L 04/26/2024 4:16 PM CDT CNFL Comment: ----ADDITIONAL INFORMATION---- The manual absolute neutrophil count is derived from a manual differential count and therefore is not exactly comparable to the automated absolute neutrophil count. Blood 04/26/2024 2:2 5 PM CDT 04/26/2024 2:27 PM CDT us Matthew Mayes M.D. LAB BLOOD ADD-ON Final Resu lt [facility] [address] [place] [address], [facility] in [address] [address] * (ABNORMAL) CBC without Differential (04/26/2024 2:25 PM CDT) Pathologist [facility] Hemoglobin 7.4(L) 11.6 - 15.0 g/dL 04/26/2024 4:16 PM CDT CNFL Hematocrit 25.0(L) 35.5 - 44.9 % 04/26/2024 4:16 PM CDT CNFL Erythrocytes 2.59(L) 3.92 - 5.13 x10(12)/L 04/26/2024 4:16 PM CDT CNFL MCV 96.5 78.2 - 97.9 fL 04/26/2024 4:16 PM CDT CNFL RBC Distrib Width 26.7(H) 12.2 - 16.1 % 04/26/2024 4:16 PM CDT CNFL Platelet Count 694(H) 157 - 371 x10(9)/L 04/26/2024 4:16 PM CDT CNFL Leukocytes 44.6(H) 3.4 - 9.6 x10(9)/L 04/26/2024 4:16 PM CDT CNFL Blood (Blood, Venous) 04/26/2024 2:25 PM CDT 04/26/2024 2:27 PM CDT us Matthew Mayes M.D. LAB BLOOD ADD-ON Final Resu lt [facility] [address] [place] [address], [facility] CNFL [facility] [place] [address] * (ABNORMAL) Basic Metabolic Panel (04/26/2024 2:25 PM CDT) Pathologist [facility] Potassium, P 4.5 3.6 - 5.2 mmol/L 04/26/2024 2:50 PM CDT CNFL Sodium, P 140 135 - 145 mmol/L 04/26/2024 2:50 PM CDT CNFL Chloride, P 102 98 - 107 mmol/L 04/26/2024 2:50 PM CDT CNFL Bicarbonate, P 29 22 - 29 mmol/L 04/26/2024 2:50 PM CDT CNFL Anion Gap, P 9 7 - 15 04/26/2024 2:50 PM CDT CNFL BUN (Blood Urea Nitrogen), P 33(H) 6 - 21 mg/dL 04/26/2024 2:50 PM CDT CNFL Creatinine 1.07(H) 0.59 - 1.04 mg/dL 04/26/2024 2:50 PM CDT CNFL Estimated GFR (eGFR) 61 >=60 mL/min/BSA 04/26/2024 2:50 PM CDT CNFL Comment: Estimated GFR calculated using the 2020 CKD_EPI creatinine equation. Calcium, Total, P 9.0 8.6 - 10.0 mg/dL 04/26/2024 2:50 PM CDT CNFL Glucose, P 124 70 - 140 mg/dL 04/26/2024 2:50 PM CDT CNFL Blood (Blood, Venous) 04/26/2024 2:25 PM CDT 04/26/2024 2:27 PM CDT us Matthew Mayes M.D. LAB BLOOD ADD-ON Final Resu lt [facility] [address] [place] [address], [facility] CNFL [facility] [place] [address] * CT Chest Angiogram with IV Contrast (06/07/2021 10:15 AM MANAGER PRESENTATION) Anatomical Region Laterality Modality Chest, Cardiovascular RST LO S, Thoracic ARZ LOS, Thoracic FLA LOS, Vascular Interventional ARZ LOS N/A Computed Tomography, Compute d Tomography 06/07/2021 10:3 8 AM MANAGER PRESENTATION Impressions 06/07/2021 11:28 AM MANAGER PRESENTATION 1. No acute pulmonary emboli. 2. Scattered groundglass opacities and mosaic attenuation throughout the lungs. Findings can be compatible with an infectious/inflammatory process versus pulmonary edema. 3. Small left pleural effusion and pericardial effusion. 4. Partially visualized abdominal ascites. Narrative 06/07/2021 11:28 AM MANAGER PRESENTATION EXAM: CT CHEST ANGIOGRAM WITH IV CONTRAST Including 3D image post-processing. COMPARISON: CT abdomen pelvis 02/16/2021 FINDINGS: VASCULAR FINDINGS: Suboptimal contrast timing. No evidence of acute pulmonary emboli. Regions of hypoattenuation within the right upper lobe pulmonary artery branches are favored to represent poor mixing artifact (series 5, image 90). Main pulmonary artery measures up to 3.8 cm, suggestive of pulmonary arterial hypertension. No evidence of right heart strain. ADDITIONAL FINDINGS: Small pericardial effusion. Right atrial enlargement. Splenomegaly. Similar appearance of the left adrenal adenoma. Abdominal ascites. Body wall anasarca. Scattered diffuse groundglass opacities and mosaic attenuation of the bilateral lungs. Fissural scarring along the superior left lower lobe/lingula. Small layering left pleural effusion. Procedure Note Ifeanyi Bullock M.D. - 06/07/2021 EXAM: CT CHEST ANGIOGRAM WITH IV CONTRAST Including 3D image post-processing. COMPARISON: CT abdomen pelvis 02/16/2021 FINDINGS: VASCULAR FINDINGS: Suboptimal contrast timing. No evidence of acute pulmonary emboli. Regions of hypoattenuation withinthe right upper lobe pulmonary artery branches are favored to represent poormixing artifact (series 5, image 90). Main pulmonary artery measures up to 3.8cm, suggestive of pulmonary arterial hypertension. No evidence of rightheart strain. ADDITIONAL FINDINGS: Small pericardial effusion. Right atrial enlargement. Splenomegaly. Similar appearance of the left adrenal adenoma. Abdominalascites. Body wall anasarca. Scattered diffuse groundglass opacities and mosaic attenuation of thebilateral lungs. Fissural scarring along the superior left lower lobe/lingula.Small layering left pleural effusion. IMPRESSION: 1. No acute pulmonary emboli. 2. Scattered groundglass opacities and mosaic attenuation throughout thelungs. Findings can be compatible with an infectious/inflammatory processversus pulmonary edema. 3. Small left pleural effusion and pericardial effusion. 4. Partially visualized abdominal ascites. us Laurita Lopez P.A.-C. [facility] PROCE DURES Final Result * (ABNORMAL) Lipid Panel (05/01/2016 7:23 AM CDT) Cholesterol, HDL, S 38(L) >=50 MG/DL [facility] Calculated LDL 53 SeeComment MG/DL [facility] Comment: REFERENCE VALUE Desirable: <100 Above Desirable: 100-129 Borderline high: 130-159 High: 160-189 Very high: > or =190 Cholesterol, Total 122 SeeComment MG/DL [facility] Comment: REFERENCE VALUE Desirable: < 200 Borderline high: 200 - 239 High: > or = 240 Triglycerides 155(H) SeeComment MG/DL [facility] Comment: REFERENCE VALUE Normal: <150 Borderline high: 150-199 High: 200-499 Very high: > or =500 Cholesterol, Non-HDL, Calculated 84 SeeComment MG/DL [facility] Comment: REFERENCE VALUE Desirable: <130 Above Desirable: 130-159 Borderline high: 160-189 High: 190-219 Very high: > or =220 05/01/2016 7:23 AM CDT 05/01/2016 7:23 AM CDT Cinda Orta M.D. LAB BLOOD ADD-ON Final Resul t [facility] [address] [place] [address], [facility] from Last 3 Months or Most Recently Relevant to Health Maintenance Insurance [address] [address] [facility] Advance Directives For more information, please contact: [phone] * Full Code (Latest Code Status on File) Date Activated Date Inactivated Comments 03/13/2022 8:14 PM 03/18/2022 12:42 PM Question Answer Comments Full Code: Discussed * Full Code Date Activated Date Inactivated Comments 06/06/2021 1:51 PM 06/11/2021 6:52 PM Question Answer Comments Full Code: Discussed Care Teams Boat Crew Deck Hand Relationship Specialty Start Date End Date Elsewhere, Pcp PCP - General Internal Medicine 01/30/24
--- OUTSIDE RECORDS SUMMARY | 2024-06-07 12:28 | XMS_ITS | Clinical Summary ---
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 Gender Identity Not on file Sexual Orientation Not on file Last Filed Vital Signs Vital Sign Reading Time Taken Comments Blood Pressure 118/72 05/29/2020 2:20 PM DIABETES CLINICAL MANAGER Pulse 63 05/29/2020 2:20 PM DIABETES CLINICAL MANAGER Temperature 36.4 C (97.6 F) 05/29/2020 2:20 PM DIABETES CLINICAL MANAGER Respiratory Rate 16 05/29/2020 2:20 PM DIABETES CLINICAL MANAGER Oxygen Saturation 98% 05/29/2020 1:09 PM DIABETES CLINICAL MANAGER Inhaled Oxygen Concentration - - Weight 92.5 kg (203 lb 14.4 oz) 07/29/2019 9:51 AM DIABETES CLINICAL MANAGER Height 169.5 cm (5' 6.75) 07/29/2019 9:51 AM CS T Body Mass Index 32.17 07/29/2019 9:51 AM DIABETES CLINICAL MANAGER Plan of Treatment Not on file Care Teams Powder Hand Relationship Specialty Start Date End Date No Ref-Primary, Physician PCP - General 09/30/17 Candida Epps MD Internal Medicine 01/15/19
--- OUTSIDE RECORDS SUMMARY | 2024-06-07 12:28 | XMS_ITS | Encounter Summary ---
Author Organization [place] Address [address] [place] [address] Care Team Providers Care Lamp Shade Joiner Name Role Phone No Ref-Primary, Physician Primary Care Provider Candida Epps MD Unavailable Shala Bell RN Unavailable Unavailable Ronaldo Cheatham MD Unavailable [phone] Candida Epps MD Unavailable Boaz Garcia MD Unavailable [phone] Rodrick Turner MD Unavailable Reason for Visit * Reason Onset Date Comments Appointment 12/16/2018 Encounter Details Date Type Department Care Team (Late st Contact Info) Description 12/16/2018 Telephone [facility] [address] [place] [address] Edin Hu MD [facility] [address] [place] [address] Appointment Social History Tobacco Use Types Packs/Day Years Used Date Smoking Tobacco: Former Cigarettes Q uit: 09/27/2012 Smokeless Tobacco: Never Comments:quit September 27, 2012 Alcohol Use Standard Drinks/Week Comments Yes 0 (1 standard drink = 0.6 oz pur e alcohol) 1 drink per week Comments No Sex and Gender Information Value Date Recorded Sex Assigned at Not on file 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 Gender Identity Not on file Sexual Orientation Not on file documented as of this encounter Miscellaneous Notes * Telephone Encounter - Amee Davidson - 12/16/2018 8:28 AM CDT lvm documented in this encounter Plan of Treatment Not on file documented as of this encounter Visit Diagnoses Not on filedocumented in this encounter Care Teams Lamp Shade Joiner Relationship Specialty Start Date End Date No Ref-Primary, Physician PCP - General 09/30/17 Candida Epps MD Internal Medicine 01/15/19 Shala Bell, HELENE Specialty Manager Beauty Hematology & Oncology 01/15/19 07/23/21 Ronaldo Cheatham MD [address] [facility] [address] [place], [place] [address] Assigned Heart and Vascular Provider 05/05/20 09/09/20 Candida Epps MD [facility] [address] [place] [address] Assigned Cancer Care Provider 05/05/20 07/22/20 Boaz Garcia MD [address] [facility] [address] [place], [place] [id number] Assigned Surgical Provider 05/05/20 01/25/21 Rodrick Turner MD [address] [facility] [address] [place], [place] [id number] Assigned Sleep Provider 05/05/20 documented as of this encounter
--- OUTSIDE RECORDS SUMMARY | 2024-06-07 12:28 | XMS_ITS | Encounter Summary ---
Author Organization [facility] Address [address] [place] [address] Care Team Providers Care Solar Sales Assessor Name Role Phone Ab Patterson MD Primary Care Provider [phone] Encounter Details Date Type Department Care Team (Late st Contact Info) Description 05/10/2016 Scanned History External to Transferred Record, Provider [facility] Social History Tobacco Use Types Packs/Day Years Used Date Smoking Tobacco: Never Assessed Sex and Gender Information Value Date Recorded Sex Assigned at Not on file Gender Identity Not on file Sexual Orientation Not on file documented as of this encounter Plan of Treatment Not on file documented as of this encounter Visit Diagnoses Not on filedocumented in this encounter Care Teams Solar Sales Assessor Relationship Specialty [place] [address] [place] [address] PCP - General Family Practice 11/30/15 documented as of this encounter
--- OUTSIDE RECORDS SUMMARY | 2024-06-07 12:28 | XMS_ITS | Clinical Summary ---
[facility] Address [address] [place] [address] Care Team Providers Care Civil Engineering Teacher Name Role Phone Ab Patterson MD Primary Care Provider [phone] Source Comments You are receiving this document [...] for each transition of care or referral. [facility] Allergies Active Allergy Reactions Criticality Noted Date Comments Latex 10/15/2010 PN: Converted from LW Latex Sensitivity Flag Medications Medication Sig Dispensed Refills Start Date End Date Status HYDROcodone-acetamin ophen (VICODIN) 5-500 MG tablet Take 1-2 tablets by mouth every 4 hours as needed. LW Addl Instr:Maximum of 8 tablets/24 hours. 15 01/01/2007 Active Additional Information Patient not taking.Reported on 04/11/2016 MORPHINE SULFATE OR 15 mg. Activ e oxyCODONE (AKA ROXICODONE) 5 MG immediate release tablet Take 5 mg by mouth every 4 hours as needed for Pain. Active sennosides-docusate sodium (SENNA-DOCUSATE) 8.6-50 MG tablet Take 1 Tab by mouth daily. Active Multiple Vitamin (MULTIVITAMINS OR) Active LORazepam (ATIVAN) 0.5 MG tablet Take 0.5 mg by mouth every 6 hours as needed for Anxiety. Active Active Problems Problem Noted Date Diagnosed Date Cervical cancer screening 04/16/2016 Overview (03/05/2017): From visit on 04/11/16: History of abnormal pap tests? yes, age 23?, colposcopy but no treatment required 2015 NILM, HPV negative 46 y.o. Plan: Cotest 03/2021 ; Pap test history Obesity, morbid, BMI 40.0-49.9 04/11/2016 Hypertension 04/11/2016 Myelofibrosis 12/01/2015 Overview (12/01/2015): Diagnosed by Dr Hu in September 2015 and treated with Jakafi 20mg bid Pain in bones and spleen managed by Dr Delgadillo of [place] [facility] Plantar fasciitis 12/01/2015 Immunizations Name Administration [...] 78 04/11/2016 1:26 PM CDT Temperature 36.6 C (97.8 F) 12/01/2015 8:44 AM CDT Respiratory Rate - [...] 1968 Hep C Screening (Preventive Services) 1968 Mammogram 1968 HepB (1) 1987 DTaP/Tdap/Td (1 - Tdap) 08/24/1998 08/23/1998 Cholesterol 2013 02/22/1998 Adult Preventive Visit 04/11/2017 6, 01/22/1999 Zoster/Shingles (1 of 2) 2018 Cervical Cancer Screening 04/11/20212015, 01/22/1999 COVID-19 Vaccine ( - 2023-2 5 season) 2024 Influenza (#1) 2024 HIV Screening (Preventive Services) Completed 02/22/1998 HepA Aged Out No longer eligi ble based on patient's age to complete this topic Hib Aged Out No longer eligi ble based on patient's age to complete this topic IPV (Polio) Aged Out No longer eligi ble based on patient's age to complete this topic Infant RSV Aged Out No longer eligi ble based on patient's age to complete this topic MCV4 Aged Out No longer eligi ble based on patient's age to complete this topic Pneumococcal Aged Out No longer eligi ble based on patient's age to complete this topic Procedures Procedure Name Priority Date/Time Associated Diagnosis Comments PAP TEST, ROUTINE Routine 04/11/2016 2:1 0 PM CDT Pap smear for cervical cancer screening HIV ANTIBODY Routine 02/22/1998 11:50 AM CDT CHOLESTEROL, TOTAL AND HDL Routine 02/22/1998 11:50 AM CDT from Last 3 Months or Most Recently Relevant to Health Maintenance Results * Pap Test, Routine (04/11/2016 2:10 PM CDT) Cytology, Pap (NOTE) Mailroom Associate Cytology Report Patient Name: JENNIFER MENDEZ Taken: 04/11/2016 Received: 04/12/2016 Reported: 04/16/2016 Physician(s): KARI DIXON Source of Specimen Pap Test, Routine Cervical/Endocervi hortencia: Specimen Adequacy Satisfactory for evaluation. Endocervical component absent. Final Cytologic Interpretation/Res ult NEGATIVE FOR INTRAEPITHELIAL LESION OR MALIGNANCY (NILM) *Electronically Signed Out By BECKIE Fields (ASCP)* BECKIE Fields (ASCP) Pap Smear History Date of Last Menstrual Period: Menopausal Microscopic Description Microscopic examination is performed. [facility] Department of Pathology [address] [place] [address] [facility] 04/11/2016 2:10 PM CDT 04/12/2016 7:17 AM CDT Kari Dixon MD LAB_1 [facility] [phone] * CHOLESTEROL, TOTAL AND HDL (02/22/1998 11:50 AM CDT) Cholesterol 160 <200 mg/dl [facility] HDL 43 >35 mg/dl [facility] 02/22/1998 11:5 0 AM CDT 02/22/1998 11:51 AM CDT Radha Tovar APRN, CNP LAB_1 Performing Organization Address City/[facility] Co de Phone Number [facility] [address] [address] * HIV 1/2 ANTIBODY (02/22/1998 11:50 AM CDT) HIV 1/2 Antibody Non-Reacti ve [facility] 02/22/1998 11:5 0 AM CDT 02/22/1998 11:51 AM CDT Radha Tovar APRN, CNP LAB_1 Performing Organization Address [facility] Co de Phone Number [facility] [address] [phone] from Last 3 Months or Most Recently Relevant to Health Maintenance Care Teams Civil Engineering Teacher Relationship Specialty [place] [address] [place] [address] PCP - General Family Practice 11/30/15
--- OUTSIDE RECORDS SUMMARY | 2024-06-07 12:28 | XMS_ITS | Referral Summary ---
Author Organization [facility] Address [address] [place] [address] Care Team Providers Care Automotive Service Technician Name Role Phone Elsewhere, Pcp Primary Care Provider Unavailabl e Source Comments Patient records contain information from all sites at [facility]. For routine questions regarding patient records, call [phone] during business hours, M-F 8:00 AM - 5:00 PM Central Time. Record requests for emergency care only can be directed to [phone] at any time.[facility] Encounters Date Type Department Care Team Description 06/03/2024 Orders Only Division of Hematology in [place], [place] [address] [place] [address] Janusz Govea M.B.B.S. Myelofibrosis Primary (HCC) (Primary Dx) 06/01/2024 Clinical Communication Division of Hematology in [place], [place] [address] [place] [address] Janusz oGvea M.B.B.S. hemoglobin decrease 05/31/2024 Orders Only Division of Hematology in [place], [place] [address] [place] [address] External, Ordering ProviderDewayne 05/24/2024 Orders Only Division of Hematology in [place], [place] [address] [place] [phone] External, Ordering ProviderDewayne 05/20/2024 Orders Only Division of Hematology in [place], [place] [address] [place] [phone] Karime, Ordering ProviderDewayne 05/19/2024 Clinical Communication Department of Cardiovascular Medicine in [place], [place] [address] [place] [phone] Matthew Mayes 05/13/2024 Orders Only Division of Hematology in [place], [place] [address] [place] [phone] External, Ordering Provider, Dewayne 05/05/2024 Orders Only Division of Hematology in [place], [place] [address] [place] [phone] External, Ordering Provider, Dewayne 05/05/2024 Clinical Communication Division of Hematology in [place], [place] [address] [place] [phone] Janusz Govea M.B.B.S. Rash 04/29/2024 Orders Only Division of Hematology in [place], [place] [address] [place] [phone] External, Ordering Provider, Dewayne 04/28/2024 Orders Only [facility] in [place], [place] [address] [place] [phone] Eliana Vargas M.D. 04/27/2024 4:00 PM CDT Office Visit Department of Cardiovascular Medicine in [address] [phone] Matthew Mayes M.D. Regurgitation Tricuspid (Primary Dx); Gastroesophageal Reflux Disease; Splenomegaly Acquired; Myelofibrosis Primary (HCC); Chronic Pain Syndrome; Failure Heart Right (HCC); Hypertension Pulmonary (HCC); Myelofibrosis (HCC); Dyspnea On Exertion; Obesity Body Mass Index 30-39.9 Adult 04/27/2024 9:00 AM CDT - 04/27/2024 10:15 AM CDT Surgery Division of Cardiovascular Diseases in [address] [address] Matthew Mayes M.D. NITRIC OXIDE STUDY 04/27/2024 7:56 AM CDT - 04/27/2024 10:33 AM CDT Hospital Encounter Division of Cardiovascular Diseases in [address] [phone] Matthew Mayes M.D. Hypertension Pulmonary (HCC); Myelofibrosis (HCC); Dyspnea On Exertion Discharge Disposition: Home or Self Care 04/26/2024 2:10 PM CDT - 04/26/2024 11:59 PM CDT Hospital Encounter Department of Laboratory Medicine in [address] [phone] Matthew Mayes M.D. Dyspnea On Exertion; Hypertension Pulmonary Primary (HCC) Discharge Disposition: Home or Self Care 04/22/2024 Clinical Communication Division of Hematology in [place], [place] [address] [place] [phone] Janusz Govea M.B.B.S. 04/22/2024 Orders Only Division of Hematology in [place], [place] [address] [place] [phone] External, Ordering Provider, Dewayne 04/22/2024 Orders Only Department of Cardiovascular Medicine in [place], [place] [address] [place] [phone] Denita Chavez R.NZahraa Dyspnea On Exertion (Primary Dx); Hypertension Pulmonary Primary (HCC) 04/22/2024 2:30 PM CDT Virtual Visit Department of Cardiovascular Medicine in [place], [place] [address] [place] [address] Matthew Mayes M.D. McDonald, Cheryl L R.NZahraa Regurgitation Tricuspid (Primary Dx); Hypertension Pulmonary (HCC); Myelofibrosis (HCC); Dyspnea On Exertion; Failure Heart Right (HCC) 04/20/2024 Clinical Communication Division of Hematology in [place], [place] [address] [place] [phone] Janusz Govea M.B.B.S. Order Request 04/19/2024 Orders Only Division of Hematology in [place], [place] [address] [place] [phone] External, Ordering Provider, Dewayne 04/16/2024 Clinical Communication Division of Hematology in [place], [place] [address] [place] [address] Janusz Govea M.B.B.S. Blood request 04/15/2024 Clinical Communication Division of Hematology in [place], [place] [address] [place] [address] Janusz Govea M.B.B.S. 04/14/2024 Orders Only Division of Hematology in [place], [place] [address] [place] [phone] External, Ordering Dewayne Olmos 04/06/2024 Documentation Department of Cardiovascular Medicine in [place], [place] [address] [place] [address] Matthew Mayes M.D. Edema 04/06/2024 Orders Only Department of Cardiovascular Medicine in [place], [place] [address] [place] [address] Matthew Mayes M.D. Hypertension Pulmonary (HCC) (Primary Dx); Myelofibrosis (HCC); Dyspnea On Exertion; Regurgitation Tricuspid 04/01/2024 Clinical Communication [facility] in [place], [place] [address] [place] [address] Matthew Mayes M.D. states cannot do regimen any more. 04/01/2024 Clinical Communication Division of Hematology in [place], [place] [address] [place] [address] Janusz Govea M.B.B.S. Michelle Wants A Call Today 03/31/2024 2:30 PM CDT Infusion Department of Infusion Therapy in [address] [phone] Janusz Govea M.B.B.S. Myelofibrosis Primary (HCC) (Primary Dx) 03/31/2024 1:28 PM CDT - 03/31/2024 11:59 PM CDT Hospital Encounter Department of Laboratory Medicine in [address] [phone] Janusz Govea M.B.B.S. Myelofibrosis Primary (HCC) Discharge Disposition: Home or Self Care 03/30/2024 Clinical Communication Division of Hematology in [place], [place] [address] [place] [address] Janusz Govea M.B.B.SZahraa 03/30/2024 Orders Only Division of Hematology in [place], [place] [address] [place] [phone] External, Ordering Provider, Dewayne 03/30/2024 Clinical Communication Department of Infusion Therapy in [address] [phone] Cordelia Claros R.N. Appt Request 03/29/2024 Orders Only Division of Hematology in [place], [place] [address] [place] [address] Janusz Govae M.B.B.S. Myelofibrosis Primary (HCC) (Primary Dx) 03/29/2024 Clinical Communication Division of Hematology in [place], [place] [address] [place] [address] Janusz Govea M.B.B.S. Order Request 03/25/2024 Clinical Communication [facility] in [place], [place] [address] [place] [address] Eliana Vargas M.D. 03/18/2024 Orders Only Division of Hematology in [place], [place] [address] [place] [address] External, Ordering Provider, Dewayne 03/09/2024 11:15 AM CDT - 03/09/2024 11:59 PM CDT Hospital Encounter Department of Laboratory Medicine in [address] [phone] Janusz Govea M.B.B.SZahara Myelofibrosis Primary (HCC) Discharge Disposition: Home or Self Care 03/09/2024 12:30 PM CDT Infusion Department of Infusion Therapy in [address] [phone] Janusz Govea M.B.B.S. Myelofibrosis Primary (HCC) (Primary Dx) from Last 3 Months Allergies No known active allergies Medications * [...] Welcome packet 1 each 07/28/2023 2:07 PM RESIDENTIAL INSURANCE INSPECTOR 4 Active sildenafil (REVATIO) 20 mg tablet [...] 2 (two) times a day. 120 tablet 11 4 03/05/20 25 Active Active Problems Patient [...] follow up with your provider, Contact RN home health care case manager for sudden weight gain or worsening symptoms/side effects, and Contact EMS for emergent conditions Current functional limitations: Class III: symptoms with less than ordinary physical activity and significant limitations with physical activity Assistive devices/DME used: Current Community Resources: outpatient lab, [facility] Problem Noted Date Diagnosed Date Myelofibrosis 04/06/2024 Secondary Pulmonary Arterial Hypertension 2022 Anemia Of Chronic Disease 03/12/2022 Chronic Pain Syndrome 03/12/2022 Dyspnea On Exertion 06/29/2021 Overview (06/29/2021): Added automatically from request for surgery [id number] Hypertension Pulmonary 06/11/2021 Hyperuricemia 06/08/2021 Edema 06/08/2021 Elevated Creatinine 06/08/2021 Gastroesophageal Reflux Disease 06/08/2021 Splenomegaly Acquired 06/06/2021 Overview (06/06/2021): Added automatically from request for surgery [id number] Pancytopenia 06/06/2021 Fluid Overload Unspecified 06/06/2021 Anxiety [...] Used Date Smoking Tobacco: Former Cigarettes 1 1 7 - 2012 Passive Smoke Exposure: Never Smokeless Tobacco: [...] Sex Assigned at Female 07/24/2021 11:03 AM RESIDENTIAL INSURANCE INSPECTOR Legal Sex Female 9:12 PM RESIDENTIAL INSURANCE INSPECTOR Gender Identity Female 07/24/2021 11:03 AM RESIDENTIAL INSURANCE INSPECTOR Sexual Orientation Straight 07/24/2021 11 :03 AM RESIDENTIAL INSURANCE INSPECTOR Last Filed Vital Signs Vital Sign Reading [...] (Latest Contact Info) Description 07/08/2024 8:15 AM RESIDENTIAL INSURANCE INSPECTOR Clinical Communication Virtual Review in [place], [place] [address] [place] [address] 07/09/2024 3:00 PM RESIDENTIAL INSURANCE INSPECTOR Office Visit Center for [facility] Medicine in [place], [place] [address] [place] [phone] Eliana Vargas M.D. [address] [place] [phone] 07/16/2024 8:30 AM RESIDENTIAL INSURANCE INSPECTOR Appointment Department of Laboratory Medicine and Pathology, [facility], in [place], [place] [address] [place] [phone] Matthew Mayes M.D. [address] [place] [phone] 07/16/2024 11:00 AM RESIDENTIAL INSURANCE INSPECTOR Clinical Support Department of Nutrition and Diabetes Education in [place], [place] [address] [place] [phone] Matthew Mayes M.D. [address] [place] [phone] Karmen Zambrano, RDN, LD [address] [place] [phone] 07/16/2024 12:30 PM RESIDENTIAL INSURANCE INSPECTOR Appointment Department of Cardiac Rehabilitation in [place], [place] [address] [place] [phone] Matthew Mayes M.D. [address] [place] [phone] 07/16/2024 2:00 PM RESIDENTIAL INSURANCE INSPECTOR Office Visit Department of Cardiovascular Medicine in [address] [phone] Matthew Mayes M.D. [address] [place] [phone] Medical Devices Implanted Type Area Rabbit Fancier Device Identifier Shelf Expiration Date Model / Serial / Lot Clp Laura Corey [facility] [id number] Implanted:Qty : 1 on 03/13/2022 by Hema Rothman M.D. at [facility] Hardware e.g. pins/screws/ rods N/A: [employer] [id number] / / Clp Laura Corey Md - [id number] Implanted:Qty : 1 on 03/13/2022 by Hema Rothman M.D. at [facility] Hardware e.g. pins/screws/ rods N/A: [employer] [id number] / / Procedures Procedure Name Priority Date/Time Associated Diagnosis Comments CBC WITH DIFFERENTIAL, B Routine 05/31/2024 9:56 AM RESIDENTIAL INSURANCE INSPECTOR CBC WITH DIFFERENTIAL, B Routine 05/24/2024 9:41 AM RESIDENTIAL INSURANCE INSPECTOR CBC WITH DIFFERENTIAL, B Routine 05/20/2024 10:11 AM RESIDENTIAL INSURANCE INSPECTOR CBC WITH DIFFERENTIAL, B Routine 05/13/2024 10:15 [...] 1:40 PM CDT MANUAL DIFFERENTIAL, B Routine 4 1:40 PM CDT CBC WITH DIFFERENTIAL, B [...] ED patients; some inpatients) 06/07/2021 10:15 AM RESIDENTIAL INSURANCE INSPECTOR LIPID PANEL, S Routine 05/01/2016 7:23 AM CDT from Last 3 Months or Most Recently Relevant to Health Maintenance Results * (ABNORMAL) CBC with Differential, Blood (05/31/2024 9:56 AM RESIDENTIAL INSURANCE INSPECTOR) Only the most recent of16 resultswithin the time period is included. EXT MCV 98 80 - [address] [facility] EXT Platelet Count 650(H) 140 - 440 K/uL [facility] EXT Neutrophils 14.50(H) 1.7 - 7.0 K/uL [facility]) EXT Lymphocytes 5.80(H) 0.90 - 2.90 K/[facility]) EXT Monocytes 5.40(H) 0.00 - 0.90 K/[facility], [facility]) EXT Basophils 3.30(H) 0.00 - 0.30 /[facility], [facility]) EXT Leukocytes 72.38(H) 4.50 - 11.00 K/[facility], [facility]) EXT RBC 2.41(L) 4.00 - 5.20 [facility]) EXT Hemoglobin 6.9(L) 12 - 16 gm/dL [facility]) EXT Hematocrit 23.5(L) 33 - 51 % [facility]) EXT Eosinophils 0.10 0.00 - 0.50 /[facility], [facility]) 05/31/2024 9:56 AM RESIDENTIAL INSURANCE INSPECTOR Narrative [facility]) - 05/31/2024 10:47 AM RESIDENTIAL INSURANCE INSPECTOR External results verified in Extract by Jocelyne Lang on 06/01/2024 at 03:21 PM. Xuan us Ordering Provider External M.D. LAB BLOOD ADD-ON Final Result [facility]) [address] [place] [address], [facility] [phone] * NITRIC OXIDE STUDY, RIGHT HEART CATHETERIZATION [...] the complete report, see the Order-Level Documents. us Matthew Mayes M.D. CV CARDIAC CATH PROCEDURES Final Result * ECG 12 Lead (04/27/2024 8:51 AM CDT) Ventricular Rate ECG/Min 92 BPM MUSE MO Interval 156 ms MUSE QRSD Interval 80 ms MUSE QT Interval 366 ms MUSE QTC Interval 452 ms MUSE P [place] -4 degrees MUSE R [place] 91 degrees MUSE T Wave [place] -16 degrees MUSE 04/27/2024 8:51 AM CDT [...] in Inferior leads Reviewed by REG Stafford us Matthew Mayes M.D. ECG ORDERABLES Final Resul [...] M.D. LAB BLOOD ADD-ON Final Resu lt [facility] [address] [place] [address], [facility] CNFL [facility] in [address] [address] * (ABNORMAL) Manual Differential, Blood (04/26/2024 2:25 PM CDT) Only the most recent of3 resultswithin the time period is included. Segmented Neutrophils 70 50 - 75 % [...] the automated absolute neutrophil count. Blood 04/26/2024 2:25 PM CDT 04/26/2024 2:27 PM CDT us Matthew Mayes M.D. LAB BLOOD ADD-ON Final Resu lt [facility] [address] [place] [address], [facility] [place] [address] * (ABNORMAL) CBC without Differential (04/26/2024 2:25 PM CDT) Hemoglobin 7.4(L) 11.6 - 15.0 g/dL 04/26/2024 [...] M.D. LAB BLOOD ADD-ON Final Resu lt [facility] [address] [place] [address], [facility] CNFL [facility] [place] [address] * (ABNORMAL) Basic Metabolic Panel (04/26/2024 2:25 PM CDT) Pathologist [facility] Potassium, P 4.5 3.6 - 5.2 mmol/L [...] M.D. LAB BLOOD ADD-ON Final Resu lt [facility] [address] [place] [address], [facility] CNFL [facility] in [address] [address] * CT Chest Angiogram with IV Contrast (06/07/2021 10:15 AM RESIDENTIAL INSURANCE INSPECTOR) Anatomical Region Laterality Modality Chest, Cardiovascular RST LO S, Thoracic ARZ LOS, Thoracic FLA LOS, Vascular Interventional ARZ LOS N/A Computed Tomography, Compute d Tomography 06/07/2021 10:3 8 AM RESIDENTIAL INSURANCE INSPECTOR Impressions 06/07/2021 11:28 AM RESIDENTIAL INSURANCE INSPECTOR 1. No acute pulmonary emboli. 2. Scattered groundglass opacities and mosaic attenuation throughout the lungs. Findings can be compatible with an infectious/inflammatory process versus pulmonary edema. 3. Small left pleural effusion and pericardial effusion. 4. Partially visualized abdominal ascites. Narrative 06/07/2021 11:28 AM RESIDENTIAL INSURANCE INSPECTOR EXAM: CT CHEST ANGIOGRAM WITH IV CONTRAST [...] Small layering left pleural effusion. Procedure Note Bullock, Ifeanyi E, M.D. - 06/07/2021 EXAM: CT CHEST ANGIOGRAM [...] Partially visualized abdominal ascites. us Laurita Lopez P.A.-C., M.S. [facility] CT PROCE DURES Final Result * (ABNORMAL) Lipid Panel (05/01/2016 7:23 AM CDT) Cholesterol, HDL, S 38(L) >=50 MG/DL [facility] Calculated LDL 53 SeeComment MG/DL [facility] Comment: REFERENCE VALUE Desirable: <100 Above Desirable: 100-129 Borderline high: 130-159 High: 160-189 Very high: > or =190 Cholesterol, Total 122 SeeComment MG/DL [facility] Comment: REFERENCE VALUE Desirable: < 200 Borderline high: 200 - 239 High: > or = 240 Triglycerides 155(H) SeeComment MG/DL [facility] Comment: REFERENCE VALUE Normal: <150 Borderline high: 150-199 High: 200-499 Very high: > or =500 Cholesterol, Non-HDL, Calculated 84 SeeComment MG/DL [facility] Comment: REFERENCE VALUE Desirable: <130 Above Desirable: 130-159 Borderline high: 160-189 High: 190-219 Very high: > or =220 05/01/2016 7:23 AM CDT 05/01/2016 7:23 AM CDT Cinda Orta M.D. LAB BLOOD ADD-ON Final Resul t [facility] [address] from Last 3 Months or Most Recently Relevant to Health Maintenance Insurance [id number] [address] MEDICARE [facility] Advance Directives For more information, please contact: [phone] * Full Code (Latest Code Status on File) Date Activated Date Inactivated Comments 03/13/2022 8:14 PM 03/18/2022 12:42 PM Question Answer Comments Full Code: Discussed * Full Code Date Activated Date Inactivated Comments 06/06/2021 1:51 PM 06/11/2021 6:52 PM Question Answer Comments Full Code: Discussed Care Teams Automotive Service Technician Relationship Specialty Start Date End Date Elsewhere, Pcp PCP - General Internal Medicine 01/30/24
--- OUTSIDE RECORDS SUMMARY | 2024-06-07 12:29 | XMS_ITS | Encounter Summary ---
Author Organization [facility] Address [address] [place] [address] Care Team Providers Care Salvage Worker Name Role Phone Elsewhere, Pcp Primary Care Provider Unavailabl e Reason for Referral * Outpatient (Routine) - Authorized Specialty Diagnoses / Procedures Referred By Contac t Referred To Contact Hematology Oncology Janusz Govea M.B.B.S. [address] [place] [phone] Phone: tel: fax: [facility] Referral ID Status Reason Start Date Expiration Date V isits Requested Visits Authorized [id number] Authorized 06/03/2024 12/03/2025 1 1 Scheduling Instructions Pls coordinate with BMT visit with Dr Zamarripa. Thank you NT ACQUISITION MANAGER * Outpatient (Routine) - Authorized Specialty Diagnoses / Procedures Referred By Contac t Referred To Contact Hematology Oncology Janusz Govea M.B.B.S. [address] [place] [phone] Phone: tel: fax: Isidro Zamarripa M.B., B.Ch. [address] [place] [phone] Phone: tel: fax: Referral ID Status Reason Start Date Expiration Date V isits Requested Visits Authorized [id number] Authorized 06/03/2024 12/03/2025 1 1 NT ACQUISITION MANAGER * Outpatient (Routine) - Authorized Specialty Diagnoses / Procedures Referred By Serena matson Referred To Contact Diagnoses Myelofibrosis Primary (HCC) Procedures Biopsy Bone Marrow, Sedated Janusz Govea M.B.B.S. [address] [place] [address] Phone: tel: fax: [facility] Referral ID Status Reason Start Date Expiration Date V isits Requested Visits Authorized [id number] Authorized 06/03/2024 06/03/2025 1 1 NT ACQUISITION MANAGER Encounter Details Date Type Department Care Team (Late st Contact Info) Description 06/03/2024 Orders Only Division of Hematology in [place], [place] [address] [place] [address] Janusz Govea M.B.B.S. [address] [place] [address] Myelofibrosis Primary (HCC) (Primary Dx) Social History Tobacco Use Types Packs/Day Years Used Date Smoking Tobacco: Former Cigarettes 1 26 1 7 - 2012 Passive Smoke Exposure: Never Smokeless Tobacco: Never Comments:still smokes mariju shady [...] Sex Assigned at Female 07/24/2021 11:03 AM TALENT ACQUISITION MANAGER Legal Sex Female 9:12 PM TALENT ACQUISITION MANAGER Gender Identity Female 07/24/2021 11:03 AM TALENT ACQUISITION MANAGER Sexual Orientation Straight 07/24/2021 11 :03 AM TALENT ACQUISITION MANAGER documented as of this encounter Plan of Treatment Upcoming Encounters Date Type Department Care Team (Latest Contact Info) Description 07/08/2024 8:15 AM TALENT ACQUISITION MANAGER Clinical Communication Virtual Review in [place], [place] 200 [place] [address] 07/09/2024 3:00 PM TALENT ACQUISITION MANAGER Office Visit [facility] in [place], [place] [address] [place] [phone] Eliana Vargas M.D. [address] [place] [phone] 07/16/2024 8:30 AM TALENT ACQUISITION MANAGER Appointment Department of Laboratory Medicine and Pathology, [facility] in [address] [phone] Matthew Mayes M.D. [address] [place] [phone] 07/16/2024 11:00 AM TALENT ACQUISITION MANAGER Clinical Support Department of Nutrition and Diabetes Education in [place], [place] [address] [place] [phone] Matthew Mayes M.D. [address] [place] [phone] Karmen Zambrano, RDN, LD [address] [place] [phone] 07/16/2024 12:30 PM TALENT ACQUISITION MANAGER Appointment Department of Cardiac Rehabilitation in [address] [phone] Matthew Mayes M.D. [address] [place] [phone] 07/16/2024 2:00 PM TALENT ACQUISITION MANAGER Office Visit Department of Cardiovascular Medicine in [address] [phone] Matthew Mayes M.D. [address] [place] [phone] Scheduled Orders Name Type Priority Associated Diagnoses Orde r Schedule CBC with Differential, Blood Lab Routine Myelofibrosis Primary (HCC) Expected: 06/03/2024, Expires: 09/03/2025 Comprehensive Metabolic Panel Lab Routine Myelofibrosis Primary (HCC) Expected: 06/03/2024, Expires: 09/03/2025 Biopsy Bone Marrow, Sedated Procedures Routine Myelofibrosis Primary (HCC) Expected: 06/03/2024, Expires: 09/03/2025 LD (Lactate Dehydrogenase) Lab Routine Myelofibrosis Primary (HCC) Expected: 06/03/2024, Expires: 09/03/2025 Scheduled Referrals Name Type Priority Associated Diagnoses Order Schedule Hematology office visit (clinic) [facility]; BMT; General Outpatient Referral Routine Expected: 06/03/2024, Expires: 09/03/2025 Hematology office visit (clinic) [facility]; CMD; General Outpatient Referral Routine Expected: 06/03/2024, Expires: 09/03/2025 documented as of this encounter Visit Diagnoses Diagnosis Myelofibrosis Primary (HCC)- Primary documented in this encounter Care Teams Salvage Worker Relationship Specialty Start Date End Date Elsewhere, Pcp PCP - General Internal Medicine 01/30/24 documented as of this encounter
--- OUTSIDE RECORDS SUMMARY | 2024-06-07 12:29 | XMS_ITS | Encounter Summary ---
Author Organization [facility] Address [address] [place] [address] Care Team Providers Care Supervisor Dyer Name Role Phone Elsewhere, Pcp Primary Care Provider Unavailabl e Reason for Visit * Reason Onset Date Comments Rash 05/05/2024 Encounter Details Date Type Department Care Team ([facility] st Contact Info) Description 05/05/2024 Clinical Communication Division of Hematology in [place], [place] [address] [place] [phone] Janusz Govea M.B.BZahraaS. [address] [place] [phone] Rash Social History Tobacco Use Types Packs/Day Years [...] Sex Assigned at Female 07/24/2021 11:03 AM PROSPECTING DRILLER Legal Sex Female 9:12 PM PROSPECTING DRILLER Gender Identity Female 07/24/2021 11:03 AM PROSPECTING DRILLER Sexual Orientation Straight 07/24/2021 11 :03 AM PROSPECTING DRILLER documented as of this encounter Plan of Treatment Upcoming Encounters Date Type Department Care Team (Latest Contact Info) Description 07/08/2024 8:15 AM PROSPECTING DRILLER Clinical Communication Virtual Review in [place], [place] 200 [place] [address] 07/09/2024 3:00 PM PROSPECTING DRILLER Office Visit [facility] in [place], [place] [address] [place] [phone] Eliana Vargas M.D. [address] [place] [phone] 07/16/2024 8:30 AM PROSPECTING DRILLER Appointment Department of Laboratory Medicine and Pathology, [facility] in [address] [phone] Matthew Mayes M.D. [address] [place] [phone] 07/16/2024 11:00 AM PROSPECTING DRILLER Clinical Support Department of Nutrition and Diabetes Education in [address] [phone] Matthew Mayes M.D. [address] [place] [phone] Karmen Zambrano, RDN, LD [address] [place] [phone] 07/16/2024 12:30 PM PROSPECTING DRILLER Appointment Department of Cardiac Rehabilitation in [place], [place] [address] [place] [phone] Matthew Mayes M.D. [address] [place] [phone] 07/16/2024 2:00 PM PROSPECTING DRILLER Office Visit Department of Cardiovascular Medicine in [address] [phone] Matthew Mayes M.D. [address] [place] [phone] documented as of this encounter Visit Diagnoses Not on filedocumented in this encounter Additional Health Concerns Infection Onset Date Last Indicated Resolved Time Protective Environment 01/22/2023 01/22/202305/23 5:22 AM PROSPECTING DRILLER documented as of this encounter Care Teams Supervisor Dyer Relationship Specialty Start Date End Date Elsewhere, Pcp PCP - General Internal Medicine 01/30/24 documented as of this encounter
--- OUTSIDE RECORDS SUMMARY | 2024-06-07 12:29 | XMS_ITS | Encounter Summary ---
Author Organization [facility] Address [address] [place] [address] Care Team Providers Care Art Specialist Name Role Phone Elsewhere, Pcp Primary Care Provider Unavailabl e Reason for Referral * Outpatient (Routine) - Authorized Specialty Diagnoses / Procedures Referred By Contac t Referred To Contact Nutrition Diagnoses Loss Weight Matthew Mayes M.D. [address] [place] [phone] Phone: tel: fax: [facility] Referral ID Status Reason Start Date Expiration Date V isits Requested Visits Authorized [id number] Authorized 05/19/2024 11/18/2025 1 1 E SHARPENER * Outpatient (Routine) - Authorized Specialty Diagnoses / Procedures Referred By Contac t Referred To Contact Endocrinology Diagnoses Loss Weight Matthew Mayes M.D. [address] [place] [phone] Phone: tel: fax: [facility] Referral ID Status Reason Start Date Expiration Date V isits Requested Visits Authorized [id number] Authorized 05/19/2024 11/18/2025 1 1 E SHARPENER Encounter Details Date Type Department Care Team (Latest Contact Info) Description 05/19/2024 Clinical Communication Department of Cardiovascular Medicine in [place], [place] [address] [place] [phone] Matthew Mayes [address] [place] [address] Social History Tobacco Use Types Packs/Day Years Used Date Smoking Tobacco: Former Cigarettes 2012 Passive Smoke Exposure: Never Smokeless Tobacco: [...] Sex Assigned at Female 07/24/2021 11:03 AM BLADE SHARPENER Legal Sex Female 9:12 PM BLADE SHARPENER Gender Identity Female 07/24/2021 11:03 AM BLADE SHARPENER Sexual Orientation Straight 07/24/2021 11 :03 AM BLADE SHARPENER documented as of this encounter Plan of Treatment Upcoming Encounters Date Type Department Care Team (Latest Contact Info) Description 07/08/2024 8:15 AM BLADE SHARPENER Clinical Communication Virtual Review in [place], [place] 200 [place] [address] 07/09/2024 3:00 PM BLADE SHARPENER Office Visit [facility] in [address] [phone] Eliana Vargas M.D. [address] [place] [phone] 07/16/2024 8:30 AM BLADE SHARPENER Appointment Department of Laboratory Medicine and Pathology, [facility], in [address] [phone] Matthew Mayes M.D. [address] [place] [phone] 07/16/2024 11:00 AM BLADE SHARPENER Clinical Support Department of Nutrition and Diabetes Education in [address] [phone] Matthew Mayes M.D. [address] [place] [phone] Karmen Zambrano, EVIEN, LD [address] [place] [phone] 07/16/2024 12:30 PM BLADE SHARPENER Appointment Department of Cardiac Rehabilitation in [place], [place] [address] [place] [address] Matthew Mayes M.D. [address] [place] [phone] 07/16/2024 2:00 PM BLADE SHARPENER Office Visit Department of Cardiovascular Medicine in [place], [place] [address] [place] [address] Matthew Mayes M.D. [address] [place] [phone] Scheduled Referrals Name Type Priority Associated Diagnoses Order Schedule Endocrinology - Weight management consult (clinic) Outpatient Referral Routine Loss Weight Expected: 07/16/2024, Expires: 08/19/2025 Nutrition - Weight management medical nutrition therapy overweight/obesity consult (clinic) Outpatient Referral Routine Loss Weight Expected: 07/16/2024, Expires: 08/19/2025 documented as of this encounter Visit Diagnoses Diagnosis Loss Weight- Primary documented in this encounter Additional Health Concerns Infection Onset Date Last Indicated Resolved Time Protective Environment 01/22/2023 01/22/202305/23 5:22 AM BLADE SHARPENER documented as of this encounter Care Teams Art Specialist Relationship Specialty Start Date End Date Elsewhere, Pcp PCP - General Internal Medicine 01/30/24 documented as of this encounter
--- OUTSIDE RECORDS SUMMARY | 2024-06-07 12:29 | XMS_ITS | Encounter Summary ---
Author Organization [facility] Address [address] [place] [address] Care Team Providers Care Commercial Stripper Name Role Phone Elsewhere, Pcp Primary Care Provider Unavailabl e Encounter Details Date Type Department Care Team (Latest Contact Info) Description 04/27/2024 7:56 AM CDT - 04/27/2024 10:33 AM CDT Hospital Encounter Division of Cardiovascular Diseases in [place], [place] [address] [place] [phone] Matthew Mayes M.D. [address] [place] [phone] Hypertension Pulmonary (HCC); Myelofibrosis (HCC); Dyspnea On Exertion Discharge Disposition: Home or Self Care Social History Tobacco Use Types Packs/Day Years Used Date Smoking Tobacco: Former Cigarettes 1 1 987 - 2012 Passive Smoke Exposure: Never Smokeless [...] Sex Assigned at Female 07/24/2021 11:03 AM FINANCIAL SERVICES OFFICER Legal Sex Female 9:12 PM FINANCIAL SERVICES OFFICER Gender Identity Female 07/24/2021 11:03 AM FINANCIAL SERVICES OFFICER Sexual Orientation Straight 07/24/2021 11 :03 AM FINANCIAL SERVICES OFFICER documented as of this encounter Last Filed [...] Mass Index 42 04/27/2024 8:47 AM CDT documented in this encounter Discharge Instructions * Attachments The following attachments cannot be sent through Care Everywhere. * Care Following Your Catheter Procedure (Divehi) documented in this encounter Medications at Time of Discharge acetaminophen (TYLENOL) 500 mg tablet Take 2 tablets (1,000 mg total) by mouth every 6 (six) hours as needed for pain (Do not exceed 4000mg/day.). 03/18/2022 allopurinoL (ZYLOPRIM) 300 mg tablet take 1 tablet by mouth daily 90 tablet 3 05/23/2023 buPROPion XL (WELLBUTRIN XL) 150 mg 24 hr tablet Take 150 mg by mouth daily. 11/22/2022 diphenhydrAMINE-ac etaminophen (TYLENOL PM) 25-500 mg per tablet Take 2 tablets by mouth at bedtime as needed for sleep. DME CPAPIndications:Ob structive Sleep Apnea Adult DME Order 1 each 02/04/2024 hydroxyurea (Hydrea) 500 mg capsule TAKE 1 CAPSULE BY MOUTH TWICE DAILY AT THE SAME TIME EVERY DAY 180 capsule 1 01/27/2024 morphine (MS CONTIN) 15 mg ER tablet TAKE 1 TABLET BY MOUTH EVERY 12 HOURS FOR PAIN 11/15/2022 morphine (MS CONTIN) 30 mg ER tablet Take 30 mg by mouth 2 (two) times a day. 09/15/2022 omeprazole (PriLOSEC) [address] capsule Take 1 capsule (20 mg total) by mouth daily. 90 capsule 3 01/22/2024 oxyCODONE (ROXICODONE) 5 mg immediate release tabletIndications: Acute Pain Exception Take 1 tablet (5 mg total) by mouth 2 (two) times a day Indication: Acute Pain Exception. 8 tablet 03/25/2022 predniSONE (Deltasone) 20 mg tablet Take 1 tablet by mouth 2 (two) times a day. 11/11/2023 RX WELCOME [id number] P ONLY Welcome packet 1 each 07/28/2023 2:07 PM FINANCIAL SERVICES OFFICER 07/18/2023 sennosides (SENOKOT) 8.6 mg tablet Take 2 tablets by mouth at bedtime as needed. 03/07/2016 sildenafil (REVATIO) 20 mg tablet Take 1 tablet (20 mg total) by mouth 3 (three) times a day. 90 tablet 11 07/30/2023 5 sodium-potassium bicarbonate (VASYL-SELTZER GOLD) 344-1,050-1,000 mg tablet, effervescent Take 1 tablet by mouth daily as needed (upset stomach). torsemide (Demadex) 20 mg tablet Take 2 tablets (40 mg total) by mouth 2 (two) times a day. 120 tablet 11 03/05/2024 UNABLE TO FIND Med Name: Cannabis- patient's [...] (Latest Contact Info) Description 07/08/2024 8:15 AM FINANCIAL SERVICES OFFICER Clinical Communication Virtual Review in [place], [place] [address] [place] [phone] 07/09/2024 3:00 PM FINANCIAL SERVICES OFFICER Office Visit [facility] in [place], [place] [address] [place] [phone] Eliana Vargas M.D. [address] [place] [phone] 07/16/2024 8:30 AM FINANCIAL SERVICES OFFICER Appointment Department of Laboratory Medicine and Pathology, [facility], in [place], [place] [address] [place] [phone] Matthew Mayes M.D. [address] [place] [phone] 07/16/2024 11:00 AM FINANCIAL SERVICES OFFICER Clinical Support Department of Nutrition and Diabetes Education in [place], [place] [address] [place] [phone] Matthew Mayes M.D. [address] [place] [phone] Karmen Zambrano RDN, LD [address] [place] [phone] 07/16/2024 12:30 PM FINANCIAL SERVICES OFFICER Appointment Department of Cardiac Rehabilitation in [place], [place] [address] [place] [phone] Matthew Mayes M.D. [address] [place] [phone] 07/16/2024 2:00 PM FINANCIAL SERVICES OFFICER Office Visit Department of Cardiovascular Medicine in [place], [place] [address] [place] [phone] Matthew Mayes M.D. [address] [place] [phone] documented as of this encounter Procedures Procedure Name Priority Date/Time Associated Diagnosis Comments CARDIAC CATHETERIZATION Routine 04/27/20 9:35 AM CDT Hypertension Pulmonary (HCC) Myelofibrosis (HCC) Dyspnea On Exertion CARDIAC CATHETERIZATION Routine 04/27/20 9:35 AM CDT Hypertension Pulmonary (HCC) Myelofibrosis (HCC) Dyspnea On Exertion ECG STAT 04/27/2024 8:51 AM CDT documented in this encounter Results * NITRIC OXIDE STUDY, RIGHT HEART CATHETERIZATION [...] CDT) Ventricular Rate ECG/Min 92 BPM MUSE DE Interval 156 ms MUSE QRSD Interval 80 ms MUSE QT Interval 366 ms MUSE QTC Interval 452 ms MUSE P [place] -4 degrees MUSE R [place] 91 degrees MUSE T Wave [place] -16 degrees MUSE 04/27/2024 8:51 AM CDT [...] ECG ORDERABLES Final Resul t MUSE NA documented in this encounter Visit Diagnoses Diagnosis Hypertension Pulmonary (HCC) Myelofibrosis (HCC) Dyspnea On Exertion Hypertension Pulmonary (HCC) Myelofibrosis (HCC) Dyspnea On Exertion documented in this encounter Admitting Diagnoses Diagnosis Hypertension Pulmonary (HCC) Dyspnea On Exertion Myelofibrosis (HCC) documented in this encounter Administered Medications Inactive Administered Medications - up to 3 most recent administrations Medication Order MAR Action Action Date Dose Rate Site fentaNYL injection 25 mcg (Sublimaze) 25 mcg, intravenous, Every 2 min PRN, sedation, Administer over 1 minute immediately prior to the procedure. May repeat every 2 minutes to a maximum of 200 mcg, until pain score of 3 or less, or until the patient meets the pain comfort goal. or RASS 0 to -2. Do not give if respiratory rate is less than 8 breaths/minute, Starting on Fri04/27/24 at 0910, Intraprocedure (CV), Subsequent doses Given 04/27/2024 9:22 AM CDT 25 mcg fentaNYL injection 25 mcg (Sublimaze) 25 mcg, intravenous, Once as needed, sedation, Starting on Fri04/27/24 at 0910, For 1 dose, Intraprocedure (CV), Initial dose flumazeniL injection 0.2 mg (Romazicon) 0.2 mg, intravenous, Once as needed, reversal, Starting on Fri04/27/24 at 0910, For 1 dose, Intraprocedure (CV), Administer once if patient has a RASS score of -4, -5 and has a respiratory rate less than 8 breaths/minute. midazolam (PF) injection 0.25 mg (Versed) 0.25 mg, intravenous, Every 2 min PRN, sedation, RASS -2, Starting on Fri04/27/24 at 0910, Intraprocedure (CV), May repeat every 2 minutes to a maximum of 5 mg. Do not give if respiratory rate is less than 8 breaths/minute. Given 04/27/2024 9:22 AM CDT 0.5 mg midazolam (PF) injection 0.5 mg (Versed) 0.5 mg, intravenous, Once as needed, sedation, Starting on Fri04/27/24 at 0910, For 1 dose, Intraprocedure (CV) midazolam (PF) injection 0.5 mg (Versed) 0.5 mg, intravenous, Every 2 min PRN, sedation, RASS -1, Starting on Fri04/27/24 at 0910, Intraprocedure (CV), May repeat every 2 minutes for a maximum of 5 mg. Do not give if respiratory rate is less than 8 breaths/minute. midazolam (PF) injection 1 mg (Versed) 1 mg, intravenous, Every 2 min PRN, sedation, RASS 0, Starting on Fri04/27/24 at 0910, Intraprocedure (CV), May repeat every 2 minutes for a maximum of 5 mg. Do not give if respiratory rate is less than 8 breaths/minute. NaCl 0.9% infusion 20 mL/hr, intravenous, Once as needed, to keep vein open, Starting on Fri04/27/24 at 0910, For 1 dose, Intraprocedure (CV) naloxone injection 0.2 mg (Narcan) 0.2 mg, intravenous, Once as needed, respiratory depression, Starting on Fri04/27/24 at 0910, For 1 dose, Intraprocedure (CV), Administer once if patient has a RASS score of -4, -5 and has a respiratory rate less than 8 breaths/minute. ondansetron (PF) injection 4 mg (Zofran) 4 mg, intravenous, Once as needed, nausea, Starting on Fri04/27/24 at 1000, For 1 dose, Postprocedure (CV), First line option sodium chloride 0.9 % injection 10 mL 10 mL, intravenous, As needed, line care, Starting on Fri04/27/24 at 0830, Preprocedure (CV), Peripheral Intravenous Catheter and Rapid Infusion Catheter, prior to blood sampling, post blood transfusion or post blood sampling sodium chloride 0.9 % injection 10 mL 10 mL, intravenous, As needed, line care, Starting on Fri04/27/24 at 0910, Intraprocedure (CV), Peripheral Intravenous Catheter and Rapid Infusion Catheter, prior to blood sampling, post blood transfusion or post blood sampling sodium chloride 0.9 % injection 3 mL 3 mL, intravenous, As needed, line care, Starting on Fri04/27/24 at 0830, Preprocedure (CV), Prior to and following infusion and between multiple consecutive infusions: sodium chloride 0.9 % injection sodium chloride 0.9 % injection 3 mL 3 mL, intravenous, Every 12 hours scheduled, First dose on Fri04/27/24 at 0900, Preprocedure (CV), Peripheral Intravenous Catheter and Rapid Infusion Catheter, when no infusion to maintain patency sodium chloride 0.9 % injection 3 mL 3 mL, intravenous, As needed, line care, Starting on Fri04/27/24 at 0910, Intraprocedure (CV), Prior to and following infusion and between multiple consecutive infusions: sodium chloride 0.9 % injection sodium chloride 0.9 % injection 3 mL 3 mL, intravenous, Every 12 hours scheduled, First dose on Fri04/27/24 at 2100, Intraprocedure (CV), Peripheral Intravenous Catheter and Rapid Infusion Catheter, when no infusion to maintain patency documented in this encounter Active and Recently Administered Medications Times are shown in CDT. Scheduled Medication Order 04/25/2024 04/26/2024 04/27/2024 sodium chloride 0.9 % injection 3 mL 3 mL, intravenous, Every 12 hours scheduled, First dose on Fri04/27/24 at 0900, Preprocedure (CV), Peripheral Intravenous Catheter and Rapid Infusion Catheter, when no infusion to maintain patency 0900 (Due) sodium chloride 0.9 % injection 3 mL 3 mL, intravenous, Every 12 hours scheduled, First dose on Fri04/27/24 at 2100, Intraprocedure (CV), Peripheral Intravenous Catheter and Rapid Infusion Catheter, when no infusion to maintain patency PRN Medication Order 04/25/2024 04/26/2024 04/27/2024 fentaNYL injection 25 mcg (Sublimaze) 25 mcg, intravenous, Every 2 min PRN, sedation, Administer over 1 minute immediately prior to the procedure. May repeat every 2 minutes to a maximum of 200 mcg, until pain score of 3 or less, or until the patient meets the pain comfort goal. or RASS 0 to -2. Do not give if respiratory rate is less than 8 breaths/minute, Starting on Fri04/27/24 at 0910, Intraprocedure (CV), Subsequent doses 0922 (Given - Provid er: Antonieta Bentley R.N.) fentaNYL injection 25 mcg (Sublimaze) 25 mcg, intravenous, Once as needed, sedation, Starting on Fri04/27/24 at 0910, For 1 dose, Intraprocedure (CV), Initial dose flumazeniL injection 0.2 mg (Romazicon) 0.2 mg, intravenous, Once as needed, reversal, Starting on Fri04/27/24 at 0910, For 1 dose, Intraprocedure (CV), Administer once if patient has a RASS score of -4, -5 and has a respiratory rate less than 8 breaths/minute. lidocaine 10 mg/mL (1 %) injection (Xylocaine) (CANCELED) Code/trauma/sedation medication, Starting on Fri04/27/24 at 0923, Intraprocedure (CV) 09 (Given - Provid er: Matthew Mayes M.D.) midazolam (PF) injection 0.25 mg (Versed) 0.25 mg, intravenous, Every 2 min PRN, sedation, RASS -2, Starting on Fri04/27/24 at 0910, Intraprocedure (CV), May repeat every 2 minutes to a maximum of 5 mg. Do not give if respiratory rate is less than 8 breaths/minute. 09 (Given - Provid er: Antonieta Bentley R.N.) midazolam (PF) injection 0.5 mg (Versed) 0.5 mg, intravenous, Once as needed, sedation, Starting on Fri04/27/24 at 0910, For 1 dose, Intraprocedure (CV) midazolam (PF) injection 0.5 mg (Versed) 0.5 mg, intravenous, Every 2 min PRN, sedation, RASS -1, Starting on Fri04/27/24 at 0910, Intraprocedure (CV), May repeat every 2 minutes for a maximum of 5 mg. Do not give if respiratory rate is less than 8 breaths/minute. midazolam (PF) injection 1 mg (Versed) 1 mg, intravenous, Every 2 min PRN, sedation, RASS 0, Starting on Fri04/27/24 at 0910, Intraprocedure (CV), May repeat every 2 minutes for a maximum of 5 mg. Do not give if respiratory rate is less than 8 breaths/minute. NaCl 0.9% infusion 20 mL/hr, intravenous, Once as needed, to keep vein open, Starting on Fri04/27/24 at 0910, For 1 dose, Intraprocedure (CV) naloxone injection 0.2 mg (Narcan) 0.2 mg, intravenous, Once as needed, respiratory depression, Starting on Fri04/27/24 at 0910, For 1 dose, Intraprocedure (CV), Administer once if patient has a RASS score of -4, -5 and has a respiratory rate less than 8 breaths/minute. ondansetron (PF) injection 4 mg (Zofran) 4 mg, intravenous, Once as needed, nausea, Starting on Fri04/27/24 at 1000, For 1 dose, Postprocedure (CV), First line option sodium chloride 0.9 % injection 10 mL 10 mL, intravenous, As needed, line care, Starting on Fri04/27/24 at 0830, Preprocedure (CV), Peripheral Intravenous Catheter and Rapid Infusion Catheter, prior to blood sampling, post blood transfusion or post blood sampling sodium chloride 0.9 % injection 10 mL 10 mL, intravenous, As needed, line care, Starting on Fri04/27/24 at 0910, Intraprocedure (CV), Peripheral Intravenous Catheter and Rapid Infusion Catheter, prior to blood sampling, post blood transfusion or post blood sampling sodium chloride 0.9 % injection 3 mL 3 mL, intravenous, As needed, line care, Starting on Fri04/27/24 at 0830, Preprocedure (CV), Prior to and following infusion and between multiple consecutive infusions: sodium chloride 0.9 % injection sodium chloride 0.9 % injection 3 mL 3 mL, intravenous, As needed, line care, Starting on Fri04/27/24 at 0910, Intraprocedure (CV), Prior to and following infusion and between multiple consecutive infusions: sodium chloride 0.9 % injection documented in this encounter Additional Health Concerns Infection Onset Date Last Indicated Resolved Time Protective Environment 01/22/2023 01/22/202305/23 5:22 AM FINANCIAL SERVICES OFFICER documented as of this encounter Care Teams Commercial Stripper Relationship Specialty Start Date End Date Elsewhere, Pcp PCP - General Internal Medicine 01/30/24 documented as of this encounter
--- OUTSIDE RECORDS SUMMARY | 2024-06-07 12:29 | XMS_ITS | Encounter Summary ---
Author Organization [facility] Address [address] [place] [address] Care Team Providers Care Assembler Musical Instruments Name Role Phone Elsewhere, Pcp Primary Care Provider Unavailabl e Encounter Details Date Type Department Care Team ([facility] st Contact Info) Description 04/27/2024 9:00 AM CDT - 04/27/2024 10:15 AM CDT Surgery Division of Cardiovascular Diseases in [place], [place] [address] [place] [phone] Matthew Mayes M.D. [address] [place] [phone] NITRIC OXIDE STUDY Social History Tobacco Use Types Packs/Day Years [...] Sex Assigned at Female 07/24/2021 11:03 AM TUFTING SUPERVISOR Legal Sex Female 9:12 PM TUFTING SUPERVISOR Gender Identity Female 07/24/2021 11:03 AM TUFTING SUPERVISOR Sexual Orientation Straight 07/24/2021 11 :03 AM TUFTING SUPERVISOR documented as of this encounter Last Filed Vital Signs Vital Sign Reading Time Taken Comments Blood Pressure 119/51 04/27/2024 10:15 AM CDT Pulse 99 04/27/2024 10:15 AM CDT Temperature 36.6 C (97.9 F) 04/27/2024 8:47 AM CDT Respiratory Rate 20 04/27/2024 9:43 AM CDT Oxygen Saturation 93% 04/27/2024 10:15 AM CDT Inhaled Oxygen Concentration - - Weight 123 kg (270 lb 11.6 oz) 04/27/2024 8:47 A M CDT Height 171 cm (5' 7.32) 04/27/2024 8:47 AM CDT Body Mass Index 42 04/27/2024 8:47 AM CDT documented in this encounter Discharge Instructions * Attachments The following attachments cannot be sent through Care Everywhere. * Care Following Your Catheter Procedure (Setswana) documented in this encounter Medications at Time [...] (two) times a day. 11/11/2023 RX WELCOME [id number] P ONLY Welcome packet 1 each 07/28/2023 2:07 PM TUFTING SUPERVISOR 07/18/2023 sennosides (SENOKOT) 8.6 mg tablet Take 2 tablets by mouth at bedtime as needed. 03/07/2016 sildenafil (REVATIO) 20 mg tablet Take 1 tablet (20 mg total) by mouth 3 (three) times a day. 90 tablet 07/30/2023 5 sodium-potassium bicarbonate (VASYL-SELTZER GOLD) 344-1,050-1,000 mg tablet, effervescent Take 1 tablet by mouth daily as needed (upset stomach). torsemide (Demadex) 20 mg tablet Take 2 tablets (40 mg total) by mouth 2 (two) times a day. 120 tablet 03/05/2024 5 UNABLE TO FIND Med Name: Cannabis- patient's [...] (Latest Contact Info) Description 07/08/2024 8:15 AM TUFTING SUPERVISOR Clinical Communication Virtual Review in [place], [place] 200 [place] [phone] 07/09/2024 3:00 PM TUFTING SUPERVISOR Office Visit [facility] in [place], [place] [address] [place] [phone] Eliana Vargas M.D. [address] [place] [phone] 07/16/2024 8:30 AM TUFTING SUPERVISOR Appointment Department of Laboratory Medicine and Pathology, [facility], in [place], [place] [address] [place] [phone] Matthew Mayes M.D. [address] [place] [phone] 07/16/2024 11:00 AM TUFTING SUPERVISOR Clinical Support Department of Nutrition and Diabetes Education in [place], [place] [address] [place] [phone] Matthew Mayes M.D. [address] [place] [phone] Karmen Zambrano RDN, LD [address] [place] [phone] 07/16/2024 12:30 PM TUFTING SUPERVISOR Appointment Department of Cardiac Rehabilitation in [place], [place] [address] [place] [phone] Matthew Mayes M.D. [address] [place] [phone] 07/16/2024 2:00 PM TUFTING SUPERVISOR Office Visit Department of Cardiovascular Medicine in [place], [place] [address] [place] [phone] Matthew Mayes M.D. [address] [place] [phone] documented as of this encounter Procedures Procedure [...] CDT) Ventricular Rate ECG/Min 92 BPM MUSE HI Interval 156 ms MUSE QRSD Interval 80 ms MUSE QT Interval 366 ms MUSE QTC Interval 452 ms MUSE P Truro -4 degrees MUSE R Truro 91 degrees MUSE T Wave Truro -16 degrees MUSE 04/27/2024 8:51 AM CDT [...] lidocaine 10 mg/mL (1 %) injection (Xylocaine) Code/trauma/sedation medication, Starting on Fri04/27/24 at 0923, Intraprocedure (CV) Given 04/27/2024 9:23 AM CDT 5 mL Right Neck midazolam (PF) injection 0.25 mg (Versed) 0.25 [...] Starting on Fri04/27/24 at 0923, Intraprocedure (CV) 0923 (Given - Provid er: Matthew Mayes M.D.) midazolam (PF) injection 0.25 mg (Versed) 0.25 mg, intravenous, Every 2 min PRN, sedation, RASS -2, Starting on Fri04/27/24 at 0910, Intraprocedure (CV), May repeat every 2 minutes to a maximum of 5 mg. Do not give if respiratory rate is less than 8 breaths/minute. 0922 (Given - Provid er: Antonieta Bentley [...] Time Protective Environment 01/22/2023 01/22/202305/23 5:22 AM TUFTING SUPERVISOR documented as of this encounter Care Teams Assembler Musical Instruments Relationship Specialty Start Date End Date Elsewhere, Pcp PCP - General Internal Medicine 01/30/24 documented as of this encounter
--- OUTSIDE RECORDS SUMMARY | 2024-06-07 12:29 | XMS_ITS | Encounter Summary ---
Author Organization [facility] Address [address] [place] [address] Care Team Providers Care Clinical Investigator Name Role Phone Elsewhere, Pcp Primary Care Provider Unavailabl e Encounter Details Date Type Department Care Team (Latest Contact Info) Description 04/26/2024 2:10 PM CDT - 04/26/2024 11:59 PM CDT Hospital Encounter Department of Laboratory Medicine in [address] [phone] Matthew Mayes M.D. [address] [place] [phone] Dyspnea On Exertion; Hypertension Pulmonary Primary (HCC) [...] Sex Assigned at Female 07/24/2021 11:03 AM IMAGE CONSULTANT Legal Sex Female 9:12 PM IMAGE CONSULTANT Gender Identity Female 07/24/2021 11:03 AM IMAGE CONSULTANT Sexual Orientation Straight 07/24/2021 11 :03 AM IMAGE CONSULTANT documented as of this encounter Medications [...] (two) times a day. 11/11/2023 RX WELCOME [id number] P ONLY Welcome packet 1 each 07/28/2023 2:07 PM IMAGE CONSULTANT 07/18/2023 sennosides (SENOKOT) 8.6 mg tablet Take 2 tablets by mouth at bedtime as needed. 03/07/2016 sildenafil (REVATIO) 20 mg tablet Take 1 tablet (20 mg total) by mouth 3 (three) times a day. 90 tablet 11 07/30/2023 01/16/202 5 sodium-potassium bicarbonate (VASYL-SELTZER GOLD) 344-1,050-1,000 mg [...] (Latest Contact Info) Description 07/08/2024 8:15 AM IMAGE CONSULTANT Clinical Communication Virtual Review in [address] [phone] 07/09/2024 3:00 PM IMAGE CONSULTANT Office Visit [facility] in [address] [phone] Eliana Vargas M.D. [address] [place] [phone] 07/16/2024 8:30 AM IMAGE CONSULTANT Appointment Department of Laboratory Medicine and Pathology, [facility], in [address] [phone] Matthew Mayes M.D. [address] [place] [phone] 07/16/2024 11:00 AM IMAGE CONSULTANT Clinical Support Department of Nutrition and Diabetes Education in [address] [phone] Matthew Mayes M.D. [address] [place] [phone] Karmen Zambrano, EVIEN, LD [address] [place] [phone] 07/16/2024 12:30 PM IMAGE CONSULTANT Appointment Department of Cardiac Rehabilitation in [place], [place] [address] [place] [phone] Matthew Mayes M.D. [address] [place] [phone] 07/16/2024 2:00 PM IMAGE CONSULTANT Office Visit Department of Cardiovascular Medicine in [place], [place] [address] [place] [phone] Matthew Mayes M.D. [address] [place] [phone] documented as of this encounter Procedures Procedure Name Priority Date/Time Associated Diagnosis Comments MORPHOLOGY EVALUATION Routine 04/26/2024 2:25 PM CDT MANUAL DIFFERENTIAL, B Routine 04/26/2024 2:25 PM CDT CBC WITHOUT DIFFERENTIAL, B Routine 04/26/2024 2:25 PM CDT Dyspnea On Exertion Hypertension Pulmonary Primary (HCC) BASIC METABOLIC PANEL, S/P Routine 04/26/2024 2:25 PM CDT Dyspnea On Exertion Hypertension Pulmonary Primary (HCC) documented in this encounter Results * (ABNORMAL) Morphology Evaluation (04/26/2024 2:25 PM CDT) RBC Morphology See Specific Findings 04/26/2024 4:16 [...] M.D. LAB BLOOD ADD-ON Final Resu lt [facility] [address] [place] [address], [facility] [place] [address] * (ABNORMAL) Manual Differential, Blood (04/26/2024 2:25 PM CDT) Segmented Neutrophils 70 50 - 75 % [...] M.D. LAB BLOOD ADD-ON Final Resu lt [facility] [address] [place] [address], [facility] [place] [address] * (ABNORMAL) Basic Metabolic Panel (04/26/2024 2:25 PM CDT) Potassium, P 4.5 3.6 - 5.2 [...] M.D. LAB BLOOD ADD-ON Final Resu lt [facility] [address] [place] [address], [facility] [place] [address] * (ABNORMAL) CBC without Differential (04/26/2024 2:25 [...] M.D. LAB BLOOD ADD-ON Final Resu lt [facility] [address] [place] [address], [facility] in [address] [phone] documented in this encounter Visit Diagnoses Diagnosis Dyspnea On Exertion Hypertension Pulmonary Primary (HCC) documented in this encounter Additional Health Concerns Infection Onset Date Last Indicated Resolved Time Protective Environment 01/22/2023 01/22/202305/23 5:22 AM IMAGE CONSULTANT documented as of this encounter Care Teams Clinical Investigator Relationship Specialty Start Date End Date Elsewhere, Pcp PCP - General Internal Medicine 01/30/24 documented as of this encounter
--- OUTSIDE RECORDS SUMMARY | 2024-06-07 12:29 | XMS_ITS | Encounter Summary ---
Author Organization [facility] Address [address] [place] [address] Care Team Providers Care Software Systems Analyst Name Role Phone Elsewhere, Pcp Primary Care Provider Unavailabl e Reason for Visit * Reason Onset Date Comments hemoglobin decrease 06/01/2024 Encounter Details Date Type Department Care Team (Latest Contact Info) Description 06/01/2024 Clinical Communication Division of Hematology in [place], [place] [address] [place] [phone] Janusz Govea M.B.BZahraaS. [address] [place] [phone] hemoglobin decrease Social History Tobacco Use Types Packs/Day Years [...] Sex Assigned at Female 07/24/2021 11:03 AM LAB ASSOCIATE Legal Sex Female 9:12 PM LAB ASSOCIATE Gender Identity Female 07/24/2021 11:03 AM LAB ASSOCIATE Sexual Orientation Straight 07/24/2021 11 :03 AM LAB ASSOCIATE documented as of this encounter Plan of Treatment Upcoming Encounters Date Type Department Care Team (Latest Contact Info) Description 07/08/2024 8:15 AM LAB ASSOCIATE Clinical Communication Virtual Review in [place], [place] 200 [place] [phone] 07/09/2024 3:00 PM LAB ASSOCIATE Office Visit [facility] in [place], [place] [address] [place] [phone] Eliana Vargas M.D. [address] [place] [phone] 07/16/2024 8:30 AM LAB ASSOCIATE Appointment Department of Laboratory Medicine and Pathology, [facility] in [place], [place] [address] [place] [phone] Matthew Mayes M.D. [address] [place] [phone] 07/16/2024 11:00 AM LAB ASSOCIATE Clinical Support Department of Nutrition and Diabetes Education in [place], [place] [address] [place] [phone] Matthew Mayes M.D. [address] [place] [phone] Karmen Zambrano, RDN, LD [address] [place] [phone] 07/16/2024 12:30 PM LAB ASSOCIATE Appointment Department of Cardiac Rehabilitation in [place], [place] [address] [place] [phone] Matthew Mayes M.D. [address] [place] [phone] 07/16/2024 2:00 PM LAB ASSOCIATE Office Visit Department of Cardiovascular Medicine in [address] [phone] Matthew Mayes M.D. [address] [place] [phone] documented as of this encounter Visit Diagnoses Not on filedocumented in this encounter Care Teams Software Systems Analyst Relationship Specialty Start Date End Date Elsewhere, Pcp PCP - General Internal Medicine 01/30/24 documented as of this encounter
--- OUTSIDE RECORDS SUMMARY | 2024-06-07 12:29 | XMS_ITS | Encounter Summary ---
Author Organization [facility] Address [address] [place] [address] Care Team Providers Care Hand Candle Molder Name Role Phone Elsewhere, Pcp Primary Care Provider Unavailabl e Encounter Details Date Type Department Care Team ( Contact Info) Description 05/20/2024 Orders Only Division of Hematology in [place], [place] [address] [place] [phone] External, Ordering ProviderDewayne Social History Tobacco Use Types Packs/Day Years Used Date Smoking Tobacco: Former Cigarettes 1 2012 Passive Smoke Exposure: Never Smokeless [...] Sex Assigned at Female 07/24/2021 11:03 AM HOSPITAL SUPERVISOR Legal Sex Female 9:12 PM HOSPITAL SUPERVISOR Gender Identity Female 07/24/2021 11:03 AM HOSPITAL SUPERVISOR Sexual Orientation Straight 07/24/2021 11 :03 AM HOSPITAL SUPERVISOR documented as of this encounter Plan of Treatment Upcoming Encounters Date Type Department Care Team (Latest Contact Info) Description 07/08/2024 8:15 AM HOSPITAL SUPERVISOR Clinical Communication Virtual Review in [place], [place] 200 [place] [phone] 07/09/2024 3:00 PM HOSPITAL SUPERVISOR Office Visit [facility] in [place], [place] [address] [place] [phone] Eliana Vargas M.D. [address] [place] [phone] 07/16/2024 8:30 AM HOSPITAL SUPERVISOR Appointment Department of Laboratory Medicine and Pathology, [facility] in [place], [place] [address] [place] [phone] Matthew Mayes M.D. [address] [place] [phone] 07/16/2024 11:00 AM HOSPITAL SUPERVISOR Clinical Support Department of Nutrition and Diabetes Education in [place], [place] [address] [place] [phone] Matthew Mayes M.D. [address] [place] [phone] Karmen Zambrano, EVIEN, LD [address] [place] [phone] 07/16/2024 12:30 PM HOSPITAL SUPERVISOR Appointment Department of Cardiac Rehabilitation in [address] [phone] Matthew Mayes M.D. [address] [place] [phone] 07/16/2024 2:00 PM HOSPITAL SUPERVISOR Office Visit Department of Cardiovascular Medicine in [address] [phone] Matthew Mayes M.D. [address] [place] [phone] documented as of this encounter Procedures Procedure Name Priority Date/Time Associated Diagnosis Comments CBC WITH DIFFERENTIAL, B Routine 05/20/2024 10:11 AM HOSPITAL SUPERVISOR documented in this encounter Results * (ABNORMAL) CBC with Differential, Blood (05/20/2024 10:11 AM HOSPITAL SUPERVISOR) EXT RBC 2.62(L) 4.00 - 5.20 m/ul SCANNED REPORT EXT Hematocrit 25.4(L) 33.0 - 51.0 % SCANNED REPORT EXT MCV 97 80 - 100 fL SCANNED REPORT EXT Platelet Count 673(H) 140 - 440 K/uL SCANNED REPORT EXT Neutrophils 21.50(H) 1.7 - 7.0 K/uL SCANNED REPORT EXT Lymphocytes 4.90(H) 0.90 - 2.90 K/uL SCANNED REPORT EXT Monocytes 3.10(H) 0.00 - 0.90 K/UL SCANNED REPORT EXT Eosinophils 0.10 0.00 - 0.50 K/uL SCANNED REPORT EXT Basophils 4.10(H) 0.00 - 0.30 K/uL SCANNED REPORT EXT Leukocytes 78.79(HH) 4.50 - 11.00 K/uL SCANNED REPORT EXT Hemoglobin 7 . 6(L) 12.0 - 16.0 gm/dL SCANNED REPORT 05/20/2024 10:1 1 AM HOSPITAL SUPERVISOR Narrative SCANNED REPORT - 05/20/2024 11:35 AM HOSPITAL SUPERVISOR External results verified in Extract by Leann Marroquin on 05/20/2024 at 04:[address] Govea us Ordering Provider External Dewayne LAB BLOOD ADD-ON Final Result SCANNED REPORT documented in this encounter Visit Diagnoses Not on filedocumented in this encounter Additional Health Concerns Infection Onset Date Last Indicated Resolved Time Protective Environment 01/22/2023 01/22/202305/23 5:22 AM HOSPITAL SUPERVISOR documented as of this encounter Care Teams Hand Candle Molder Relationship Specialty Start Date End Date Elsewhere, Pcp PCP - General Internal Medicine 01/30/24 documented as of this encounter
--- OUTSIDE RECORDS SUMMARY | 2024-06-07 12:29 | XMS_ITS | Encounter Summary ---
Author Organization [facility] Address [address] [place] [address] Care Team Providers Care Emergency Communications Operator Name Role Phone Elsewhere, Pcp Primary Care Provider Unavailabl e Reason for Referral * Outpatient (Routine) - Authorized Specialty Diagnoses / Procedures Referred By Serena t Referred To Contact Sleep Medicine Eliana Vargas M.D. [address] [place] [phone] Phone: tel: fax: [facility] Referral ID Status Reason Start Date Expiration Date V isits Requested Visits Authorized [id number] Authorized 04/28/2024 10/28/2025 1 1 Scheduling Instructions Patient needs visit with me soon if she is amenable Encounter Details Date Type Department Care Team (Late st Contact Info) Description 04/28/2024 Orders Only [facility] in [place], [place] [address] [place] [phone] Eliana Vargas M.D. [address] [place] [phone] Social History Tobacco Use Types Packs/Day Years Used Date Smoking Tobacco: Former Cigarettes 1 08 08 987 - 2012 Passive Smoke Exposure: Never [...] Sex Assigned at Female 07/24/2021 11:03 AM RECRUITER MANAGER Legal Sex Female 9:12 PM RECRUITER MANAGER Gender Identity Female 07/24/2021 11:03 AM RECRUITER MANAGER Sexual Orientation Straight 07/24/2021 11 :03 AM RECRUITER MANAGER documented as of this encounter Plan of Treatment Upcoming Encounters Date Type Department Care Team (Latest Contact Info) Description 07/08/2024 8:15 AM RECRUITER MANAGER Clinical Communication Virtual Review in [place], [place] 200 [place] [phone] 07/09/2024 3:00 PM RECRUITER MANAGER Office Visit [facility] in [address] [phone] Eliana Vargas M.D. [address] [place] [phone] 07/16/2024 8:30 AM RECRUITER MANAGER Appointment Department of Laboratory Medicine and Pathology, [facility], in [address] [phone] Matthew Mayes M.D. [address] [place] [phone] 07/16/2024 11:00 AM RECRUITER MANAGER Clinical Support Department of Nutrition and Diabetes Education in [address] [phone] Matthew Mayes M.D. [address] [place] [phone] Karmen Zambrano, VEIEN, LD [address] [place] [phone] 07/16/2024 12:30 PM RECRUITER MANAGER Appointment Department of Cardiac Rehabilitation in [place], [place] [address] [place] [phone] Matthew Mayes M.D. [address] [place] [phone] 07/16/2024 2:00 PM RECRUITER MANAGER Office Visit Department of Cardiovascular Medicine in [place], [place] [address] [place] [phone] Matthew Mayes M.D. [address] [place] [phone] Scheduled Referrals Name Type Priority Associated Diagnoses Orde r Schedule Sleep Medicine office visit (clinic) Outpatient Referral Routine Expected: 04/28/2024, Expires: 07/29/2025 documented as of this encounter Visit Diagnoses Not on filedocumented in this encounter Additional Health Concerns Infection Onset Date Last Indicated Resolved Time Protective Environment 01/22/2023 01/22/202305/23 5:22 AM RECRUITER MANAGER documented as of this encounter Care Teams Emergency Communications Operator Relationship Specialty Start Date End Date Elsewhere, Pcp PCP - General Internal Medicine 01/30/24 documented as of this encounter
--- OUTSIDE RECORDS SUMMARY | 2024-06-07 12:29 | XMS_ITS | Encounter Summary ---
Author Organization [facility] Address [address] [place] [address] Care Team Providers Care Green Building Materials Distributor Name Role Phone Elsewhere, Pcp Primary Care Provider Unavailabl e Encounter Details Date Type Department Care Team (Late st Contact Info) Description 05/05/2024 Orders Only Division of Hematology in [place], [place] [address] [place] [phone] External, Ordering ProviderDewayne Social History Tobacco Use [...] Assigned at Female 07/24/2021 11:03 AM SCHOOL COMMISSIONER Legal Sex Female 9:12 PM SCHOOL COMMISSIONER Gender Identity Female 07/24/2021 11:03 AM SCHOOL COMMISSIONER Sexual Orientation Straight 07/24/2021 11 :03 AM SCHOOL COMMISSIONER documented as of this encounter Miscellaneous Notes * Result Encounter Note - Dena Junior R.N. - 05/07/2024 12:03 PM CDT MF luspatercept at 1 mg/kg every 3 weeks. Hydrea 500 mg twice daily Thank you, Dena RN documented in this encounter Plan of Treatment Upcoming Encounters Date Type Department Care Team (Latest Contact Info) Description 07/08/2024 8:15 AM SCHOOL COMMISSIONER Clinical Communication Virtual Review in [place], [place] 200 [place] [phone] 07/09/2024 3:00 PM SCHOOL COMMISSIONER Office Visit [facility] in [address] [phone] Eliana Vargas M.D. [address] [place] [phone] 07/16/2024 8:30 AM SCHOOL COMMISSIONER Appointment Department of Laboratory Medicine and Pathology, [facility] in [address] [phone] Matthew Mayes M.D. [address] [place] [phone] 07/16/2024 11:00 AM SCHOOL COMMISSIONER Clinical Support Department of Nutrition and Diabetes Education in [address] [phone] Matthew Mayes M.D. [address] [place] [phone] Karmen Zambrano, EVIEN, LD [address] [place] [phone] 07/16/2024 12:30 PM SCHOOL COMMISSIONER Appointment Department of Cardiac Rehabilitation in [address] [phone] Matthew Mayes M.D. [address] [place] [phone] 07/16/2024 2:00 PM SCHOOL COMMISSIONER Office Visit Department of Cardiovascular Medicine in [place], [place] [address] [place] [address] Matthew Mayes M.D. 200 [place] [phone] documented as of this encounter Procedures Procedure Name Priority Date/Time Associated Diagnosis Comments CBC WITH DIFFERENTIAL, B Routine 05/06/2024 11:27 AM CDT CBC WITH DIFFERENTIAL, B Routine 05/05/2024 10:23 AM CDT documented in this encounter Results * (ABNORMAL) CBC with Differential, Blood (05/06/2024 11:27 AM CDT) EXT Leukocytes 90.66(H) 4.50 - 11.00 K/uL [facility] EXT RBC 2.55(L) 4.00 - 5.20 m/uL [facility] EXT Hematocrit 25.6(L) 33.0 - 51.0 % [facility] EXT MCV 100 80 - 100 fL [facility] EXT Platelet Count 632(H) 140 - 440 K/uL [facility] EXT Neutrophils 22.50(H) 1.7 - 7.0 K/uL [facility] EXT Lymphocytes 5.90(H) 0.90 - 2.90 K/uL [facility] EXT Monocytes 3.10(H) 0.00 - 0.90 K/UL [facility] EXT Eosinophils 0.10 0.00 - 0.50 K/uL [facility] EXT Basophils 3.4(H) 0 - 0.3 K/UL [facility] EXT Hemoglobin 7.4(L) 12 - 16 GM/DL [facility] 05/06/2024 11:2 7 AM CDT Narrative [facility] - 05/07/2024 11:56 AM CDT Source result document attached to Order Number [id number] ([id number]) dated 05/05/2024. External results verified in Extract by Jocelyne Lang on 05/07/2024 at 11:51 AM. Xuan us Ordering Provider External Dewayne LAB BLOOD ADD-ON Final Result [facility] NA [facility] [address] [place] [address], [facility] [phone] * (ABNORMAL) CBC with Differential, Blood (05/05/2024 10:23 AM CDT) EXT Leukocytes 89.09(H) 4.50 - 11.00 K/uL [facility] EXT Hematocrit 24.9(L) 33.0 - 51.0 ML [facility] EXT MCV 100 80 - 100 fL [facility] EXT Platelet Count 662(H) 140 - 440 K/uL [facility] EXT Neutrophils 23.80(H) 1.7 - 7.0 K/uL [facility] EXT Lymphocytes 6.40(H) 0.90 - 2.90 K/uL [facility] EXT Monocytes 3.20(H) 0.00 - 0.90 K/UL [facility] EXT Eosinophils 0.10 0.00 - 0.50 K/uL [facility] EXT Basophils 430(H) 0.00 - 0.30 K/uL [facility] EXT Hemoglobin 7.5(L) 12 - 16 gm/dL [facility] EXT RBC 2.48(L) 4 - 5.2 MIL/UL [facility] 05/05/2024 10:2 3 AM CDT Narrative [facility] - 05/07/2024 11:56 AM CDT External results verified in Extract by Jocelyne Lang on 05/07/2024 at 11:51 AM. Xuan us Ordering Provider External Dewayne LAB BLOOD ADD-ON Final Result [facility] [address] [place] [address], [facility] [phone] documented in this encounter Visit Diagnoses Not on filedocumented in this encounter Additional Health Concerns Infection Onset Date Last Indicated Resolved Time Protective Environment 01/22/2023 01/22/202305/23 5:22 AM SCHOOL COMMISSIONER documented as of this encounter Care Teams Green Building Materials Distributor Relationship Specialty Start Date End Date Elsewhere, Pcp PCP - General Internal Medicine 01/30/24 documented as of this encounter
--- OUTSIDE RECORDS SUMMARY | 2024-06-07 12:29 | XMS_ITS | Encounter Summary ---
Author Organization [facility] Address [address] [place] [address] Care Team Providers Care Shellfish Bed Worker Name Role Phone Elsewhere, Pcp Primary Care Provider Unavailabl e Encounter Details Date Type Department Care Team ( Contact Info) Description 05/31/2024 Orders Only Division of Hematology in [place], [place] [address] [place] [phone] External, Ordering ProviderDewayne Social History Tobacco Use [...] Sex Assigned at Female 07/24/2021 11:03 AM SYSTEM ENGINEER Legal Sex Female 9:12 PM SYSTEM ENGINEER Gender Identity Female 07/24/2021 11:03 AM SYSTEM ENGINEER Sexual Orientation Straight 07/24/2021 11 :03 AM SYSTEM ENGINEER documented as of this encounter Plan of Treatment Upcoming Encounters Date Type Department Care Team (Latest Contact Info) Description 07/08/2024 8:15 AM SYSTEM ENGINEER Clinical Communication Virtual Review in [place], [place] [address] [place] [address] 07/09/2024 3:00 PM SYSTEM ENGINEER Office Visit [facility] in [place], [place] [address] [place] [phone] Eliana Vargas M.D. [address] [place] [phone] 07/16/2024 8:30 AM SYSTEM ENGINEER Appointment Department of Laboratory Medicine and Pathology, [facility] in [place], [place] [address] [place] [phone] Matthew Mayes M.D. [address] [place] [phone] 07/16/2024 11:00 AM SYSTEM ENGINEER Clinical Support Department of Nutrition and Diabetes Education in [place], [place] [address] [place] [phone] Matthew Mayes M.D. [address] [place] [phone] Karmen Zambrano, EVIEN, LD [address] [place] [phone] 07/16/2024 12:30 PM SYSTEM ENGINEER Appointment Department of Cardiac Rehabilitation in [address] [phone] Matthew Mayes M.D. [address] [place] [phone] 07/16/2024 2:00 PM SYSTEM ENGINEER Office Visit Department of Cardiovascular Medicine in [address] [phone] Matthew Mayes M.D. [address] [place] [phone] documented as of this encounter Procedures Procedure Name Priority Date/Time Associated Diagnosis Comments CBC WITH DIFFERENTIAL, B Routine 05/31/2024 9:56 AM SYSTEM ENGINEER documented in this encounter Results * (ABNORMAL) CBC with Differential, Blood (05/31/2024 9:56 AM SYSTEM ENGINEER) EXT MCV 98 80 - 100 fL [facility] EXT Platelet Count 650(H) 140 - 440 K/uL [facility]) EXT Neutrophils 14.50(H) 1.7 - 7.0 K/uL [facility]) EXT Lymphocytes 5.80(H) 0.90 - 2.90 K/uL [facility]) EXT Monocytes 5.40(H) 0.00 - 0.90 K/UL [facility]) EXT Basophils 3.30(H) 0.00 - 0.30 K/uL [facility]) EXT Leukocytes 72.38(H) 4.50 - 11.00 K/uL [facility]) EXT RBC 2.41(L) 4.00 - 5.20 MIL/UL [facility]) EXT Hemoglobin 6.9(L) 12 - 16 gm/dL [facility]) EXT Hematocrit 23.5(L) 33 - 51 % [facility]) EXT Eosinophils 0.10 0.00 - 0.50 K/uL [facility]) 05/31/2024 9:56 AM SYSTEM ENGINEER Narrative [facility]) - 05/31/2024 10:47 AM SYSTEM ENGINEER External results verified in Extract by Jocelyne Lang on 06/01/2024 at 03:21 PM. Xuan us Ordering Provider External Dewayne LAB BLOOD ADD-ON Final Result [facility]) [address] [place] [address], [facility] [phone] documented in this encounter Visit Diagnoses Not on filedocumented in this encounter Care Teams Shellfish Bed Worker Relationship Specialty Start Date End Date Elsewhere, Pcp PCP - General Internal Medicine 01/30/24 documented as of this encounter
--- OUTSIDE RECORDS SUMMARY | 2024-06-07 12:29 | XMS_ITS | Encounter Summary ---
Author Organization [facility] Address [address] [place] [address] Care Team Providers Care Model Maker Scale Name Role Phone Elsewhere, Pcp Primary Care Provider Unavailabl e Encounter Details Date Type Department Care Team ( Contact Info) Description 05/13/2024 Orders Only Division of Hematology in [place], [place] [address] [place] [phone] External, Ordering ProviderDewayne Social History Tobacco Use [...] Sex Assigned at Female 07/24/2021 11:03 AM AUXILIARY OPERATOR Legal Sex Female 9:12 PM AUXILIARY OPERATOR Gender Identity Female 07/24/2021 11:03 AM AUXILIARY OPERATOR Sexual Orientation Straight 07/24/2021 11 :03 AM AUXILIARY OPERATOR documented as of this encounter Plan of Treatment Upcoming Encounters Date Type Department Care Team (Latest Contact Info) Description 07/08/2024 8:15 AM AUXILIARY OPERATOR Clinical Communication Virtual Review in [place], [place] [address] [place] [phone] 07/09/2024 3:00 PM AUXILIARY OPERATOR Office Visit [facility] in [place], [place] [address] [place] [phone] Eliana Vargas M.D. [address] [place] [phone] 07/16/2024 8:30 AM AUXILIARY OPERATOR Appointment Department of Laboratory Medicine and Pathology, [facility] in [place], [place] [address] [place] [phone] Matthew Mayes M.D. [address] [place] [phone] 07/16/2024 11:00 AM AUXILIARY OPERATOR Clinical Support Department of Nutrition and Diabetes Education in [place], [place] [address] [place] [phone] Matthew Mayes M.D. [address] [place] [phone] Karmen Zambrano, EVIEN, LD [address] [place] [phone] 07/16/2024 12:30 PM AUXILIARY OPERATOR Appointment Department of Cardiac Rehabilitation in [address] [phone] Matthew Mayes M.D. [address] [place] [phone] 07/16/2024 2:00 PM AUXILIARY OPERATOR Office Visit Department of Cardiovascular Medicine in [address] [phone] Matthew Mayes M.D. [address] [place] [phone] documented as of this encounter Procedures Procedure Name Priority Date/Time Associated Diagnosis Comments CBC WITH DIFFERENTIAL, B Routine 05/13/2024 10:15 AM CDT documented in this encounter Results * (ABNORMAL) CBC with Differential, Blood (05/13/2024 10:15 AM CDT) EXT Leukocytes 86.41(H) 4.50 - 11.00 K/uL [facility] EXT RBC 2.47(L) 4.00 - 5.20 m/uL [facility] EXT Hemoglobin 7.4(L) 12.00 - 16.0 gm/dL [facility] EXT Hematocrit 24.7(L) 33.0 - 51.0 ML [facility] EXT MCV 100 80 - 100 fL [facility] EXT Platelet Count 717(H) 140 - 440 K/uL [facility] EXT Neutrophils 21.40(H) 1.7 - 7.0 K/uL [facility] EXT Lymphocytes 4.90(H) 0.90 - 2.90 K/uL [facility] EXT Monocytes 4.60(H) 0.00 - 0.90 K/UL [facility] EXT Basophils 3.30(H) 0.00 - 0.30 K/uL [facility] 05/13/2024 10:1 5 AM CDT Narrative [facility] - 05/13/2024 10:20 AM CDT External results verified in Extract by Jennifer Peralta on 05/13/2024 at 12:[address] Govea us Ordering Provider External M.DZahraa LAB BLOOD ADD-ON Final Result [facility] documented in this encounter Visit Diagnoses Not on filedocumented in this encounter Additional Health Concerns Infection Onset Date Last Indicated Resolved Time Protective Environment 01/22/2023 01/22/202305/23 5:22 AM AUXILIARY OPERATOR documented as of this encounter Care Teams Model Maker Scale Relationship Specialty Start Date End Date Elsewhere, Pcp PCP - General Internal Medicine 01/30/24 documented as of this encounter
--- OUTSIDE RECORDS SUMMARY | 2024-06-07 12:29 | XMS_ITS | Encounter Summary ---
Author Organization [facility] Address [address] [place] [address] Care Team Providers Care Solar Tech Name Role Phone Elsewhere, Pcp Primary Care Provider Unavailabl e Encounter Details Date Type Department Care Team ( Contact Info) Description 04/29/2024 Orders Only Division of Hematology in [place], [place] [address] [place] [phone] External, Ordering ProviderDewayne Social History Tobacco Use [...] Sex Assigned at Female 07/24/2021 11:03 AM HANDLE MAKER Legal Sex Female 9:12 PM HANDLE MAKER Gender Identity Female 07/24/2021 11:03 AM HANDLE MAKER Sexual Orientation Straight 07/24/2021 11 :03 AM HANDLE MAKER documented as of this encounter Plan of Treatment Upcoming Encounters Date Type Department Care Team (Latest Contact Info) Description 07/08/2024 8:15 AM HANDLE MAKER Clinical Communication Virtual Review in [place], [place] [address] [place] [phone] 07/09/2024 3:00 PM HANDLE MAKER Office Visit [facility] in [place], [place] [address] [place] [phone] Eliana Vargas M.D. [address] [place] [phone] 07/16/2024 8:30 AM HANDLE MAKER Appointment Department of Laboratory Medicine and Pathology, [facility] in [place], [place] [address] [place] [phone] Matthew Mayes M.D. [address] [place] [phone] 07/16/2024 11:00 AM HANDLE MAKER Clinical Support Department of Nutrition and Diabetes Education in [place], [place] [address] [place] [phone] Matthew Mayes M.D. [address] [place] [phone] Karmen Zambrano, EVIEN, LD [address] [place] [phone] 07/16/2024 12:30 PM HANDLE MAKER Appointment Department of Cardiac Rehabilitation in [address] [phone] Matthew Mayes M.D. [address] [place] [phone] 07/16/2024 2:00 PM HANDLE MAKER Office Visit Department of Cardiovascular Medicine in [address] [phone] Matthew Mayes M.D. [address] [place] [phone] documented as of this encounter Procedures Procedure Name Priority Date/Time Associated Diagnosis Comments CBC WITH DIFFERENTIAL, B Routine 04/29/2024 10:23 AM CDT CBC WITH DIFFERENTIAL, B Routine 04/29/2024 10:23 AM CDT documented in this encounter Results * (ABNORMAL) CBC with Differential, Blood (04/29/2024 10:23 AM CDT) EXT Leukocytes 94.00(H) 4.50 - 11.00 K/uL [facility] EXT WBC 36.15(H) 4.50 - 11.00 K/UL [facility] EXT Hematocrit 25.0(L) 33.0 - 51.0 % [facility] EXT MCV 98 80 - 100 fL [facility] EXT Lymphocytes 6.00(H) 0.90 - 2.90 K/uL [facility] EXT Monocytes 5.10(H) 0.00 - 0.90 K/UL [facility] EXT Eosinophils 0.10 0.00 - 0.50 K/uL [facility] EXT Basophils 2.80(H) 0.00 - 0.30 K/uL [facility] 04/29/2024 10:2 3 AM CDT Narrative [facility] - 04/29/2024 11:07 AM CDT Source result document attached to Order Number [id number] ([id number]) dated 04/29/2024. External results verified in Extract by Leann Marroquin on 04/29/2024 at 12:[address] Govea us Ordering Provider External Dewayne LAB BLOOD ADD-ON Final Result [facility] [facility] [address] [place] [address], [facility] [phone] * (ABNORMAL) CBC with Differential, Blood (04/29/2024 10:23 AM CDT) EXT RBC 2.55(L) 4.00 - 5.20 m/uL [facility] EXT Hemoglobin 7.3(L) 12.0 - 16.0 gm/dL [facility] 04/29/2024 10:2 3 AM CDT Narrative [facility] - 04/29/2024 11:08 AM CDT External results verified in Extract by Leann Marroquin on 04/29/2024 at 12:22 PM. us Ordering Provider External Dewayne LAB BLOOD ADD-ON Final Result [facility] [address] [place] [address] documented in this encounter Visit Diagnoses Not on filedocumented in this encounter Additional Health Concerns Infection Onset Date Last Indicated Resolved Time Protective Environment 01/22/2023 01/22/202305/23 5:22 AM HANDLE MAKER documented as of this encounter Care Teams Solar Tech Relationship Specialty Start Date End Date Elsewhere, Pcp PCP - General Internal Medicine 01/30/24 documented as of this encounter
--- OUTSIDE RECORDS SUMMARY | 2024-06-07 12:29 | XMS_ITS | Encounter Summary ---
Author Organization [facility] Address [address] [place] [address] Care Team Providers Care Shearing Machine Operator Name Role Phone Elsewhere, Pcp Primary Care Provider Unavailabl e Encounter Details Date Type Department Care Team ( Contact Info) Description 05/24/2024 Orders Only Division of Hematology in [place], [place] [address] [place] [phone] External, Ordering ProviderDewayne Social History Tobacco Use [...] Sex Assigned at Female 07/24/2021 11:03 AM ORDNANCE TRUCK INSTALLATION MECHANIC Legal Sex Female 9:12 PM ORDNANCE TRUCK INSTALLATION MECHANIC Gender Identity Female 07/24/2021 11:03 AM ORDNANCE TRUCK INSTALLATION MECHANIC Sexual Orientation Straight 07/24/2021 11 :03 AM ORDNANCE TRUCK INSTALLATION MECHANIC documented as of this encounter Plan of Treatment Upcoming Encounters Date Type Department Care Team (Latest Contact Info) Description 07/08/2024 8:15 AM ORDNANCE TRUCK INSTALLATION MECHANIC Clinical Communication Virtual Review in [place], [place] [address] [place] [phone] 07/09/2024 3:00 PM ORDNANCE TRUCK INSTALLATION MECHANIC Office Visit [facility] in [place], [place] [address] [place] [phone] Eliana Vargas M.D. [address] [place] [phone] 07/16/2024 8:30 AM ORDNANCE TRUCK INSTALLATION MECHANIC Appointment Department of Laboratory Medicine and Pathology, [facility] in [place], [place] [address] [place] [phone] Matthew Mayes M.D. [address] [place] [phone] 07/16/2024 11:00 AM ORDNANCE TRUCK INSTALLATION MECHANIC Clinical Support Department of Nutrition and Diabetes Education in [place], [place] [address] [place] [phone] Matthew Mayes M.D. [address] [place] [phone] Karmen Zambrano, EVIEN, LD [address] [place] [phone] 07/16/2024 12:30 PM ORDNANCE TRUCK INSTALLATION MECHANIC Appointment Department of Cardiac Rehabilitation in [address] [phone] Matthew Mayes M.D. [address] [place] [phone] 07/16/2024 2:00 PM ORDNANCE TRUCK INSTALLATION MECHANIC Office Visit Department of Cardiovascular Medicine in [address] [phone] Matthew Mayes M.D. [address] [place] [phone] documented as of this encounter Procedures Procedure Name Priority Date/Time Associated Diagnosis Comments CBC WITH DIFFERENTIAL, B Routine 05/24/2024 9:41 AM ORDNANCE TRUCK INSTALLATION MECHANIC documented in this encounter Results * (ABNORMAL) CBC with Differential, Blood (05/24/2024 9:41 AM ORDNANCE TRUCK INSTALLATION MECHANIC) EXT Leukocytes 78.40(H) 4.5 - 11 K/uL [facility] EXT Hematocrit 24.5(L) 33 - 51 % [facility] EXT MCV 97 80 - 100 fL [facility] EXT Platelet Count 695(H) 140 - 440 K/uL [facility] EXT Lymphocytes 7.70(H) 0.90 - 2.90 K/uL [facility] EXT Monocytes 6.30(H) 0.0 - 0.9 K/UL [facility] EXT Eosinophils 0.10 0.0 - 0.5 K/uL [facility] EXT Basophils 4.40(H) 0.00 - 0.30 K/uL [facility] EXT RBC 2.53(L) 4 - 5.2 MIL/UL [facility] EXT Hemoglobin 7.3(L) 12 - 16 gm/dL [facility] EXT RDW 26.1(H) 11.5 - 15.5 % [facility] EXT Neutrophils 16.40(H) 1.7 - 7 K/uL [facility] 05/24/2024 9:41 AM ORDNANCE TRUCK INSTALLATION MECHANIC Narrative [facility] - 05/24/2024 12:45 PM ORDNANCE TRUCK INSTALLATION MECHANIC External results verified in Extract by Jocelyne Lang on 05/24/2024 at 12:37 PM. jose f us Ordering Provider External M.DZahraa LAB BLOOD ADD-ON Final Result [facility] [address] [place] [address], [facility] [phone] documented in this encounter Visit Diagnoses Not on filedocumented in this encounter Care Teams Shearing Machine Operator Relationship Specialty Start Date End Date Elsewhere, Pcp PCP - General Internal Medicine 01/30/24 documented as of this encounter
--- OUTSIDE RECORDS SUMMARY | 2024-06-07 12:29 | XMS_ITS | Encounter Summary ---
Author Organization [facility] Address [address] [place] [phone] Care Team Providers Care Digital Art Director Name Role Phone Elsewhere, Pcp Primary Care Provider Unavailabl e Encounter Details Date Type Department Care Team ( Contact Info) Description 04/22/2024 Clinical Communication Division of Hematology in [place], [place] [address] [place] [phone] Janusz Govea M.B.B.S. [address] [place] [phone] Social History Tobacco Use Types Packs/Day Years [...] Sex Assigned at Female 07/24/2021 11:03 AM PROJECT MANAGEMENT DIRECTOR Legal Sex Female 9:12 PM PROJECT MANAGEMENT DIRECTOR Gender Identity Female 07/24/2021 11:03 AM PROJECT MANAGEMENT DIRECTOR Sexual Orientation Straight 07/24/2021 11 :03 AM PROJECT MANAGEMENT DIRECTOR documented as of this encounter Plan of Treatment Upcoming Encounters Date Type Department Care Team (Latest Contact Info) Description 07/08/2024 8:15 AM PROJECT MANAGEMENT DIRECTOR Clinical Communication Virtual Review in [place], [place] 200 [place] [address] 07/09/2024 3:00 PM PROJECT MANAGEMENT DIRECTOR Office Visit [facility] in [place], [place] [address] [place] [phone] Eliana Vargas M.D. [address] [place] [phone] 07/16/2024 8:30 AM PROJECT MANAGEMENT DIRECTOR Appointment Department of Laboratory Medicine and Pathology, [facility], in [place], [place] [address] [place] [phone] Matthew Mayes M.D. [address] [place] [phone] 07/16/2024 11:00 AM PROJECT MANAGEMENT DIRECTOR Clinical Support Department of Nutrition and Diabetes Education in [place], [place] [address] [place] [phone] Matthew Mayes M.D. [address] [place] [phone] Karmen Zambrano, EVIEN, LD [address] [place] [phone] 07/16/2024 12:30 PM PROJECT MANAGEMENT DIRECTOR Appointment Department of Cardiac Rehabilitation in [place], [place] [address] [place] [phone] Matthew Mayes M.D. [address] [place] [phone] 07/16/2024 2:00 PM PROJECT MANAGEMENT DIRECTOR Office Visit Department of Cardiovascular Medicine in [address] [phone] Matthew Mayes M.D. [address] [place] [phone] documented as of this encounter Visit Diagnoses Not on filedocumented in this encounter Additional Health Concerns Infection Onset Date Last Indicated Resolved Time Protective Environment 01/22/2023 01/22/202305/23 5:22 AM PROJECT MANAGEMENT DIRECTOR documented as of this encounter Care Teams Digital Art Director Relationship Specialty Start Date End Date Elsewhere, Pcp PCP - General Internal Medicine 01/30/24 documented as of this encounter
--- OUTSIDE RECORDS SUMMARY | 2024-06-07 12:29 | XMS_ITS | Encounter Summary ---
Author Organization [facility] Address [address] [place] [address] Care Team Providers Care Salesperson Furniture Name Role Phone Elsewhere, Pcp Primary Care Provider Unavailabl e Reason for Visit * Outpatient (Routine) - Closed Specialty Diagnoses / Procedures Referred By Contjayjay t Referred To Contact Cardiovascular Disease Diagnoses Hypertension Pulmonary (HCC) Myelofibrosis (HCC) Dyspnea On Exertion Matthew Mayes M.D. [address] [place] [phone] Phone: tel: fax: [facility] Referral ID Status Reason Start Date Expiration Date Visits Re quested Visits Authorized [id number] Closed 04/06/2024 10/06/2025 1 1 Encounter Details Date Type Department Care Team (Latest Contact Info) Description 04/27/2024 4:00 PM CDT Office Visit Department of Cardiovascular Medicine in [place], [place] [address] [place] [phone] Matthew Mayes M.D. [address] [place] [phone] Regurgitation Tricuspid (Primary Dx); Gastroesophageal Reflux Disease; Splenomegaly Acquired; Myelofibrosis Primary (HCC); Chronic Pain Syndrome; Failure Heart Right (HCC); Hypertension Pulmonary (HCC); Myelofibrosis (HCC); Dyspnea On Exertion; Obesity Body Mass Index 30-39.9 Adult Social History Tobacco Use Types Packs/Day Years Used Date Smoking Tobacco: Former Cigarettes 7 - 2012 Passive Smoke Exposure: Never [...] Sex Assigned at Female 07/24/2021 11:03 AM LANDSCAPE MAINTENANCE INTERNSHIP Legal Sex Female 9:12 PM LANDSCAPE MAINTENANCE INTERNSHIP Gender Identity Female 07/24/2021 11:03 AM LANDSCAPE MAINTENANCE INTERNSHIP Sexual Orientation Straight 07/24/2021 11 :03 AM LANDSCAPE MAINTENANCE INTERNSHIP documented as of this encounter H&P Notes * Matthew Mayes M.D. - 04/27/2024 4:00 PM CDT CHIEF COMPLAINT / REASON FOR VISIT Pulmonary hypertension in context of anemia and myelofibrosis HISTORY OF PRESENT ILLNESS Ms. Jennifer Dobbs is a most pleasant 53-year-old woman well known to me from prior visits who has pulmonary hypertension in context of severe chronic anemia with myelofibrosis and also has severe tricuspid regurgitation. She also has chronic bone pain treated with narcotics and has substantial sleepdisordered breathing that so far is untreated since when she tried CPAP she had nosebleeds and thishas not been pursued further. Recently she has been very frustrated by needing to take a lot of diuretics to maintain euvolemia and oscillating between feeling dehydrated and feeling volume overloaded. Accordingly we elected today to proceed with repeat right heart catheterization to redefine her hemodynamics. She seems to be doing a reasonable job of fluid and salt restriction. She also has been carrying extra weight in context of noting that she tends to stress eat and gets so easily breathless that she can not really get much exercise. History notable for myelofibrosis diagnosed in August 2015 with hospitalization in May 2021 with right heart failure diagnosed with pulmonary hypertension with severe secondary tricuspid regurgitation at that time. She was treated with diuretics and then in October of 2021 underwent right heart catheterization demonstrating preserved cardiac index in setting of marked anemia, normal transhepatic gradient, [id number] tricuspid regurgitation based on concomitant echo imaging and normalright and left heart filling pressures. PVR was 3.2 and improved modestly with inhaled nitric oxide. Pulmonary hypertension as of catheterization in October, has been a combination of high-flow state in context of her chronic anemia and also some elevation in her pulmonary vascular resistance forwhich we have been treating her with sildenafil since July 2023. Right heart catheterization today HEMODYNAMICS SUMMARY April 27, 2024 Severely elevated RA mean pressure. Elevated RA v-wave pressure. V-wave compatible with TR. Baseline RA 18 PA 73/31/47 PAWP 18 CO/CI 9.9/4.3 PVR 2.9 GARIBAY art sat 86% PA sat 46% Nitric oxide RA 18 PA 63/27/44 PAWP 19 CO/CI 11.4/4.9 PVR 2.2 GARIBAY art sat 80% PA sat 45% Findings indicative of severely elevated right and left heart filling pressures with severely elevated pulmonary artery pressure, mildly elevated PVR, and high cardiac output state in context of severe anemia. Systemic hypoxemia. REVIEW OF SYSTEMS A comprehensive review of systems was completed; pertinent abnormalities are included in the History of Present Illness. MEDICATIONS Current Outpatient Medications: acetaminophen (TYLENOL) 500 mg tablet, Take 2 tablets (1,000 mg total) by mouth every 6 (six) hoursas needed for pain (Do not exceed 4000mg/day.)., Disp: , Rfl: allopurinoL (ZYLOPRIM) 300 mg tablet, take 1 tablet by mouth daily, Disp: 90 tablet, Rfl: 3 buPROPion XL (WELLBUTRIN XL) 150 mg 24 hr tablet, Take 150 mg by mouth daily., Disp: , Rfl: diphenhydrAMINE-acetaminophen (TYLENOL PM) 25-500 mg per tablet, Take 2 tablets by mouth at bedtimeas needed for sleep., Disp: , Rfl: DME CPAP, DME Order, Disp: 1 each, Rfl: 0 hydroxyurea (Hydrea) 500 mg capsule, TAKE 1 CAPSULE BY MOUTH TWICE DAILY AT THE SAME TIME EVERY DAY, Disp: 180 capsule, Rfl: 1 morphine (MS CONTIN) 15 mg ER tablet, TAKE 1 TABLET BY MOUTH EVERY 12 HOURS FOR PAIN, Disp: , Rfl: morphine (MS CONTIN) 30 mg ER tablet, Take 30 mg by mouth 2 (two) times a day., Disp: , Rfl: omeprazole (PriLOSEC) [address] capsule, Take 1 capsule (20 mg total) by mouth daily., Disp: 90 capsule, Rfl: 3 oxyCODONE (ROXICODONE) 5 mg immediate release tablet, Take 1 tablet (5 mg total) by mouth 2 (two) times a day Indication: Acute Pain Exception. (Patient taking differently: Take 5 mg by mouth 2 (two)times a day.), Disp: 8 tablet, Rfl: 0 predniSONE (Deltasone) 20 mg tablet, Take 1 tablet by mouth 2 (two) times a day., Disp: , Rfl: RX WELCOME [id number] ONLY, Welcome packet, Disp: 1 each, Rfl: 0 sennosides (SENOKOT) 8.6 mg tablet, Take 2 tablets by mouth at bedtime as needed., Disp: , Rfl: sildenafil (REVATIO) 20 mg tablet, Take 1 tablet (20 mg total) by mouth 3 (three) times a day., Disp: 90 tablet, Rfl: 11 sodium-potassium bicarbonate (VASYL-SELTZER GOLD) 344-1,050-1,000 mg tablet, effervescent, Take 1 tablet by mouth daily as needed (upset stomach)., Disp: , Rfl: torsemide (Demadex) 20 mg tablet, Take 2 tablets (40 mg total) by mouth 2 (two) times a day., Disp:120 tablet, Rfl: 11 UNABLE TO FIND, Med Name: Cannabis- patient's reports this is newly prescribed for her and as of 03/11/22, has not yet started. Reports patient will have gummies as well as a tablet, have not picked these up yet. Strength of these is not known because they are new for her., Disp: , Rfl: No current facility-administered medications for this visit. VITALS Temperature: 36.6 ??C Resp Rate: 18 Blood Pressure: 134/56 SpO2: 91 % Height: 171 cm Weight: 123 kg BMI (Calculated): 42 kg/m?? Pulse 92 regular PHYSICAL EXAMINATION General: Bright and alert Psychiatric: Normal mood and affect Skin: No features of connective tissue disease. Eyes: Non-icteric Vessels: Central venous pressure is normal. Heart: S1, S2 with prominent P2 II/ systolic murmur LLSB Lungs: Clear to auscultation bilaterally. Abdomen: Soft nontender Extremities: Possible mild edema DIAGNOSTIC REVIEW All labs and diagnostic studies were reviewed. ECG 12 Lead Result Date: 04/27/2024 Normal sinus rhythm with sinus arrhythmia Rightward axis ST and T wave abnormality, consider inferolateral ischemia When compared with ECG of 15-Mar-2022 23:26, T wave inversion now evident in Inferior leads Reviewed by REG Stafford Recent Results (from the past 24 hours) CBC without Differential Collection Time: 04/26/24 2:25 PM Result Value Hemoglobin 7.4 (L) Hematocrit 25.0 (L) Erythrocytes 2.59 (L) MCV 96.5 RBC Distrib Width 26.7 (H) Platelet Count 694 (H) Leukocytes 44.6 (H) Basic Metabolic Panel Collection Time: 04/26/24 2:25 PM Result Value Potassium, P 4.5 Sodium, P 140 Chloride, P 102 Bicarbonate, P 29 Anion Gap, P 9 BUN (Blood Urea Nitrogen), P 33 (H) Creatinine 1.07 (H) Estimated GFR (eGFR) 61 Calcium, Total, P 9.0 Glucose, P 124 Manual Differential, Blood Collection Time: 04/26/24 2:25 PM Result Value Segmented Neutrophils 70 Lymphocytes % 3 (L) Monocytes 1 (L) Eosinophils 1 Metamyelocytes 8 (H) Myelocytes 14 (H) Promyelocytes 1 (H) Blasts 2 (H) Nucleated RBC 94 Manual Absolute Neutrophil Count 31.22 (H) Morphology Evaluation Collection Time: 04/26/24 2:25 PM Result Value RBC Morphology See Specific Findings PLT Morphology See Specific Findings PLT Estimate Increased (A) Anisocytosis Marked (A) Basophilic Stippling Slight (A) Dimorphic RBC Present (A) Elliptocytes Slight (A) Large PLT Present (A) Macrocytosis Slight (A) Microcytosis Moderate (A) Polychromasia Slight (A) Poikilocytosis Moderate (A) Schistocytes Slight (A) Target Cells Slight (A) 6 minute walk January 21, 2024 315 m sats 93 at rest 88 after walking ECHO January 22, 2024 1. Severely enlarged right ventricular chamber size, severely reduced systolic function, estimated right ventricular systolic pressure 79 mmHg (right atrial pressure of 15 mmHg). 2. Averaged right ventricular free wall longitudinal peak systolic strain is - 12% (normal </= -25%). 3. Severe tricuspid valve regurgitation, ERO (PISA) 0.42 cm2, regurgitant volume (PISA) 49 ml. 4. Enlarged inferior vena cava size with reduced inspiratory collapse (<50%). 5. Mildly enlarged left ventricular chamber size (D shaped), no regional wall motion abnormalities,calculated 2-D linear ejection fraction 64%. 6. Left ventricular stroke volume index 36 ml/m2. 7. Left ventricular cardiac index 3.64 l/min/m2. 8. No pericardial effusion. 9. Compared to the report of 07/30/2023 the following changes have occurred: The LV is slightly smaller. Stroke volume is lower but cardiac index is higher due to faster heart rate. RV systolic pressure is higher, in part due to a higher estimate of RA pressure. RV strain is significantly lower. HEMODYNAMICS SUMMARY April 27, 2024 Severely elevated RA mean pressure. Elevated RA v-wave pressure. V-wave compatible with TR. Baseline RA 18 PA 73/31/47 PAWP 18 CO/CI 9.9/4.3 PVR 2.9 GARIBAY art sat 86% PA sat 46% Nitric oxide RA 18 PA 63/27/44 PAWP 19 CO/CI 11.4/4.9 PVR 2.2 GARIBAY art sat 80% PA sat 45% Findings indicative of severely elevated right and left heart filling pressures with severely elevated pulmonary artery pressure, mildly elevated PVR, and high cardiac output state in context of severe anemia. Systemic hypoxemia. Minimal effect of nitric oxide. 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 I have sent a message to Dr. Vargas inquiring whether it may be worthwhile at least have her use oxygen at night and maybe try again with CPAP to alleviate her nocturnal severe orthopnea and restlessness; Jennifer is willing to try to treat the sleep disordered breathing again. I also think it maybe conceivable to proceed with stem cell transplant. She has a high output failure syndrome but I think we can manage that perioperatively and if her hemoglobin improved it would be a lot easier to manage her overall condition. I will send a message to Dr. Govea in Hematology about that. Jennifer is also interested in potential for meds such as semaglutide for her weight so I will refer her to Endocrine clinic in that regard. Matthew Mayes M.D. 04/27/2024 documented in this encounter Plan of Treatment Upcoming Encounters Date Type Department Care Team (Latest Contact Info) Description 07/08/2024 8:15 AM LANDSCAPE MAINTENANCE INTERNSHIP Clinical Communication Virtual Review in [place], [place] 200 [place] [address] 07/09/2024 3:00 PM LANDSCAPE MAINTENANCE INTERNSHIP Office Visit [facility] in [address] [phone] Eliana Vargas M.D. [address] [place] [phone] 07/16/2024 8:30 AM LANDSCAPE MAINTENANCE INTERNSHIP Appointment Department of Laboratory Medicine and Pathology, [facility] in [address] [phone] Matthew Mayes M.D. [address] [place] [phone] 07/16/2024 11:00 AM LANDSCAPE MAINTENANCE INTERNSHIP Clinical Support Department of Nutrition and Diabetes Education in [place], [place] [address] [place] [phone] Matthew Mayes M.D. [address] [place] [phone] Karmen Zambrano, JOSE, LD [address] [place] [phone] 07/16/2024 12:30 PM LANDSCAPE MAINTENANCE INTERNSHIP Appointment Department of Cardiac Rehabilitation in [place], [place] [address] [place] [phone] Matthew Mayes M.D. [address] [place] [phone] 07/16/2024 2:00 PM LANDSCAPE MAINTENANCE INTERNSHIP Office Visit Department of Cardiovascular Medicine in [place], [place] [address] [place] [address] Matthew Mayes M.D. [address] [place] [phone] documented as of this encounter Visit Diagnoses Diagnosis Regurgitation Tricuspid- Primary Gastroesophageal Reflux Disease Splenomegaly Acquired Myelofibrosis Primary (HCC) Chronic Pain Syndrome Failure Heart Right (HCC) Hypertension Pulmonary (HCC) Myelofibrosis (HCC) Dyspnea On Exertion Obesity Body Mass Index 30-39.9 Adult documented in this encounter Additional Health Concerns Infection Onset Date Last Indicated Resolved Time Protective Environment 01/22/2023 01/22/202305/23 5:22 AM LANDSCAPE MAINTENANCE INTERNSHIP documented as of this encounter Care Teams Salesperson Furniture Relationship Specialty Start Date End Date Elsewhere, Pcp PCP - General Internal Medicine 01/30/24 documented as of this encounter
--- OUTSIDE RECORDS SUMMARY | 2024-06-07 12:29 | XMS_ITS ---
Author Organization [facility] Address [address] [place] [address] Care Team Providers Care Assistant Hairstylist Name Role Phone Unavailable Unavailable Unavailable Surgery Details Not on file Complications Check Surgery Details section. Procedure Estimated Blood Loss Check Surgery Details section. Procedure Findings Check Surgery Details section. Procedure Specimens Taken Check Surgery Details section.
--- OUTSIDE RECORDS SUMMARY | 2024-06-07 12:30 | XMS_ITS | Encounter Summary ---
Author Organization [facility] Address [address] [place] [phone] Care Team Providers Care Immersion Metal Cleaner Name Role Phone Elsewhere, Pcp Primary Care Provider Unavailabl e Encounter Details Date Type Department Care Team ( Contact Info) Description 03/30/2024 Orders Only Division of Hematology in [place], [place] [address] [place] [phone] External, Ordering ProviderDewayne Social History Tobacco Use [...] Sex Assigned at Female 07/24/2021 11:03 AM INTERNET SALES CONSULTANT Legal Sex Female 9:12 PM INTERNET SALES CONSULTANT Gender Identity Female 07/24/2021 11:03 AM INTERNET SALES CONSULTANT Sexual Orientation Straight 07/24/2021 11 :03 AM INTERNET SALES CONSULTANT documented as of this encounter Plan of Treatment Upcoming Encounters Date Type Department Care Team (Latest Contact Info) Description 07/08/2024 8:15 AM INTERNET SALES CONSULTANT Clinical Communication Virtual Review in [place], [place] 200 [place] [phone] 07/09/2024 3:00 PM INTERNET SALES CONSULTANT Office Visit [facility] in [place], [place] [address] [place] [phone] Eliana Vargas M.D. [address] [place] [phone] 07/16/2024 8:30 AM INTERNET SALES CONSULTANT Appointment Department of Laboratory Medicine and Pathology, [facility] in [place], [place] [address] [place] [phone] Matthew Mayes M.D. [address] [place] [phone] 07/16/2024 11:00 AM INTERNET SALES CONSULTANT Clinical Support Department of Nutrition and Diabetes Education in [place], [place] [address] [place] [phone] Matthew Mayes M.D. [address] [place] [phone] Karmen Zambrano, EVIEN, LD [address] [place] [phone] 07/16/2024 12:30 PM INTERNET SALES CONSULTANT Appointment Department of Cardiac Rehabilitation in [address] [phone] Matthew Mayes M.D. [address] [place] [phone] 07/16/2024 2:00 PM INTERNET SALES CONSULTANT Office Visit Department of Cardiovascular Medicine in [address] [phone] Matthew Mayes M.D. [address] [place] [phone] documented as of this encounter Procedures Procedure Name Priority Date/Time Associated Diagnosis Comments CBC WITH DIFFERENTIAL, B Routine 03/30/2024 8:52 AM CDT documented in this encounter Results * (ABNORMAL) CBC with Differential, Blood (03/30/2024 8:52 AM CDT) EXT MCV 102(H) 80 - 100 fL SCANNED REPORT EXT Platelet Count 858(H) 140 - 440 K/uL SCANNED REPORT EXT RDW 31.5(H) 11.5 - 15.5 % SCANNED REPORT EXT Neutrophils 60.10(H) 1.7 - 7.0 K/uL SCANNED REPORT EXT Lymphocytes 28.30(H) 0.90 - 2.90 K/uL SCANNED REPORT EXT Monocytes 22.90(H) 0.00 - 0.90 K/UL SCANNED REPORT EXT Basophils 12.00(H) 0.00 - 0.30 K/uL SCANNED REPORT EXT WBC 133.63(H) 4.50 - 11.00 K/uL SCANNED REPORT EXT RBC 7.52(L) 4.00 - 5.20 m/uL SCANNED REPORT EXT Hemoglobin 7.6(L) 12.0 - 16.0 gm/dL SCANNED REPORT EXT Hematocrit 25-7(L) 33.0 - 51.0 % SCANNED REPORT 03/30/2024 8:52 AM CDT Narrative SCANNED REPORT - 03/30/2024 10:03 AM CDT External results verified in Extract by Jocelyne Lang on 03/30/2024 at 10:27 AM. Xuan us Ordering Provider External M.D. LAB BLOOD ADD-ON Final Result SCANNED REPORT documented in this encounter Visit Diagnoses Not on filedocumented in this encounter Additional Health Concerns Infection Onset Date Last Indicated Resolved Time Protective Environment 01/22/2023 01/22/202305/23 5:22 AM INTERNET SALES CONSULTANT documented as of this encounter Care Teams Immersion Metal Cleaner Relationship Specialty Start Date End Date Elsewhere, Pcp PCP - General Internal Medicine 01/30/24 documented as of this encounter
--- OUTSIDE RECORDS SUMMARY | 2024-06-07 12:30 | XMS_ITS | Encounter Summary ---
Author Organization [facility] Address [address] [place] [address] Care Team Providers Care Traffic Police Officer Name Role Phone Elsewhere, Pcp Primary Care Provider Unavailabl e Reason for Visit * Reason Onset Date Comments Husb Wants A Call Today 04/01/2024 Encounter Details Date Type Department Care Team (Latest Contact Info) Description 04/01/2024 Clinical Communication Division of Hematology in [place], [place] [address] [place] [phone] Janusz Govea M.B.B.S. [address] [place] [phone] Dimasb Wants A Call Today Social History Tobacco Use Types Packs/Day Years [...] Sex Assigned at Female 07/24/2021 11:03 AM JUNIOR SYSTEMS ADMINISTRATOR Legal Sex Female 9:12 PM JUNIOR SYSTEMS ADMINISTRATOR Gender Identity Female 07/24/2021 11:03 AM JUNIOR SYSTEMS ADMINISTRATOR Sexual Orientation Straight 07/24/2021 11 :03 AM JUNIOR SYSTEMS ADMINISTRATOR documented as of this encounter Plan of Treatment Upcoming Encounters Date Type Department Care Team (Latest Contact Info) Description 07/08/2024 8:15 AM JUNIOR SYSTEMS ADMINISTRATOR Clinical Communication Virtual Review in [place], [place] 200 [place] [phone] 07/09/2024 3:00 PM JUNIOR SYSTEMS ADMINISTRATOR Office Visit [facility] in [place], [place] [address] [place] [phone] Eliana Vargas M.D. [address] [place] [phone] 07/16/2024 8:30 AM JUNIOR SYSTEMS ADMINISTRATOR Appointment Department of Laboratory Medicine and Pathology, [facility] in [address] [phone] Matthew Mayes M.D. [address] [place] [phone] 07/16/2024 11:00 AM JUNIOR SYSTEMS ADMINISTRATOR Clinical Support Department of Nutrition and Diabetes Education in [address] [phone] Matthew Mayes M.D. [address] [place] [phone] Karmen Zambrano, EVIEN, LD [address] [place] [phone] 07/16/2024 12:30 PM JUNIOR SYSTEMS ADMINISTRATOR Appointment Department of Cardiac Rehabilitation in [address] [phone] Matthew Mayes M.D. [address] [place] [phone] 07/16/2024 2:00 PM JUNIOR SYSTEMS ADMINISTRATOR Office Visit Department of Cardiovascular Medicine in [address] [phone] Matthew Mayes M.D. [address] [place] [phone] documented as of this encounter Visit Diagnoses Not on filedocumented in this encounter Additional Health Concerns Infection Onset Date Last Indicated Resolved Time Protective Environment 01/22/2023 01/22/202305/23 5:22 AM JUNIOR SYSTEMS ADMINISTRATOR documented as of this encounter Care Teams Traffic Police Officer Relationship Specialty Start Date End Date Elsewhere, Pcp PCP - General Internal Medicine 01/30/24 documented as of this encounter
--- OUTSIDE RECORDS SUMMARY | 2024-06-07 12:30 | XMS_ITS | Encounter Summary ---
Author Organization [facility] Address [address] [place] [address] Care Team Providers Care Aircraft Assembler Name Role Phone Elsewhere, Pcp Primary Care Provider Unavailabl e Reason for Visit * Reason Onset Date Comments Order Request 04/20/2024 Encounter Details Date Type Department Care Team ([facility] st Contact Info) Description 04/20/2024 Clinical Communication Division of Hematology in [place], [place] [address] [place] [phone] Janusz Govea M.B.BZahraaS. [address] [place] [phone] Order Request Social History Tobacco Use Types [...] Sex Assigned at Female 07/24/2021 11:03 AM BACKWINDER Legal Sex Female 9:12 PM BACKWINDER Gender Identity Female 07/24/2021 11:03 AM BACKWINDER Sexual Orientation Straight 07/24/2021 11 :03 AM BACKWINDER documented as of this encounter Plan of Treatment Upcoming Encounters Date Type Department Care Team (Latest Contact Info) Description 07/08/2024 8:15 AM BACKWINDER Clinical Communication Virtual Review in [place], [place] 200 [place] [address] 07/09/2024 3:00 PM BACKWINDER Office Visit [facility] in [place], [place] [address] [place] [phone] Eliana Vargas M.D. [address] [place] [phone] 07/16/2024 8:30 AM BACKWINDER Appointment Department of Laboratory Medicine and Pathology, [facility] in [address] [phone] Matthew Mayes M.D. [address] [place] [phone] 07/16/2024 11:00 AM BACKWINDER Clinical Support Department of Nutrition and Diabetes Education in [place], [place] [address] [place] [phone] Matthew Mayes M.D. [address] [place] [phone] Karmen Zambrano, RDN, LD [address] [place] [phone] 07/16/2024 12:30 PM BACKWINDER Appointment Department of Cardiac Rehabilitation in [place], [place] [address] [place] [phone] Matthew Mayes M.D. [address] [place] [phone] 07/16/2024 2:00 PM BACKWINDER Office Visit Department of Cardiovascular Medicine in [address] [phone] Matthew Mayes M.D. [address] [place] [phone] documented as of this encounter Visit Diagnoses Not on filedocumented in this encounter Additional Health Concerns Infection Onset Date Last Indicated Resolved Time Protective Environment 01/22/2023 01/22/202305/23 5:22 AM BACKWINDER documented as of this encounter Care Teams Aircraft Assembler Relationship Specialty Start Date End Date Elsewhere, Pcp PCP - General Internal Medicine 01/30/24 documented as of this encounter
--- OUTSIDE RECORDS SUMMARY | 2024-06-07 12:30 | XMS_ITS | Encounter Summary ---
Author Organization [facility] Address [address] [place] [address] Care Team Providers Care Building Maintenance Repairer Name Role Phone Elsewhere, Pcp Primary Care Provider Unavailabl e Reason for Visit * Episode Based Medications (Routine) - Authorized Specialty Diagnoses / Procedures Referred By Contac t Referred To Contact Diagnoses Myelofibrosis Primary (HCC) Janusz Govea M.B.B.S. [address] [place] [phone] Phone: tel: fax: Division of Hematology in [place], [place] [address] [place] [phone] Phone: tel: Referral ID Status Reason Start Date Expiration Date V isits Requested Visits Authorized [id number] Authorized 02/10/2024 02/09/2026 99 99 Encounter Details Date Type Department Care Team (Latest Contact Info) Description 03/31/2024 1:28 PM CDT - 03/31/2024 11:59 PM CDT Hospital Encounter Department of Laboratory Medicine in [place], [place] [address] [place] [phone] Janusz Govea M.B.B.S. [address] [place] [phone] Myelofibrosis Primary (HCC) Discharge Disposition: Home or Self Care Social History Tobacco Use Types Packs/Day Years Used Date Smoking Tobacco: Former Cigarettes 987 - 2012 Passive Smoke Exposure: Never [...] Sex Assigned at Female 07/24/2021 11:03 AM NETWORK AND THREAT SUPPORT SPECIALIST Legal Sex Female 9:12 PM NETWORK AND THREAT SUPPORT SPECIALIST Gender Identity Female 07/24/2021 11:03 AM NETWORK AND THREAT SUPPORT SPECIALIST Sexual Orientation Straight 07/24/2021 11 :03 AM NETWORK AND THREAT SUPPORT SPECIALIST documented as of this encounter Medications [...] (two) times a day. 11/11/2023 RX WELCOME [id number] P ONLY Welcome packet 1 each 07/28/2023 2:07 PM NETWORK AND THREAT SUPPORT SPECIALIST 07/18/2023 sennosides (SENOKOT) 8.6 mg tablet Take [...] times a day. 120 tablet 11 03/05/2024 5 UNABLE TO FIND Med Name: Cannabis- patient's reports this is newly prescribed for her and as of 03/11/22, has not yet started. Reports patient will have gummies as well as a tablet, have not picked these up yet. Strength of these is not known because they are new for her. momelotinib (OJJAARA) 100 mg tablet Take 1 tablet (100 mg total) by mouth daily. Swallow tablets whole; do not cut, crush or chew. 30 tablet 3 08/21/2023 12:21 PM NETWORK AND THREAT SUPPORT SPECIALIST 07/02/2023 4 Morphine 15 mg, Bupivacaine 10 mg/mL INTRATHECAL 15 mg 2 (two) times a day. 04/05/2022 4 sildenafil (REVATIO) 20 mg tablet Take 1 tablet (20 mg total) by mouth 3 (three) times a day. 90 tablet 3 07/30/2023 4 documented as of this encounter Plan of Treatment Upcoming Encounters Date Type Department Care Team (Latest Contact Info) Description 07/08/2024 8:15 AM NETWORK AND THREAT SUPPORT SPECIALIST Clinical Communication Virtual Review in [place] [address] [place] [phone] 07/09/2024 3:00 PM NETWORK AND THREAT SUPPORT SPECIALIST Office Visit [facility] in [place], [place] [address] [place] [phone] Eliana Vargas M.D. [address] [place] [phone] 07/16/2024 8:30 AM NETWORK AND THREAT SUPPORT SPECIALIST Appointment Department of Laboratory Medicine and Pathology, [facility] in [place], [place] [address] [place] [phone] Matthew Mayes M.D. [address] [place] [phone] 07/16/2024 11:00 AM NETWORK AND THREAT SUPPORT SPECIALIST Clinical Support Department of Nutrition and Diabetes Education in [place], [place] [address] [place] [phone] Matthew Mayes M.D. [address] [place] [phone] Karmen Zambrano, EVIEN, LD [address] [place] [phone] 07/16/2024 12:30 PM NETWORK AND THREAT SUPPORT SPECIALIST Appointment Department of Cardiac Rehabilitation in [place], [place] [address] [place] [phone] Matthew Mayes M.D. [address] [place] [phone] 07/16/2024 2:00 PM NETWORK AND THREAT SUPPORT SPECIALIST Office Visit Department of Cardiovascular Medicine in [place], [place] [address] [place] [phone] Matthew Mayes M.D. [address] [place] [phone] documented as of this encounter Procedures Procedure Name Priority Date/Time Associated Diagnosis Comments MORPHOLOGY EVALUATION Routine 03/31/2024 1:40 PM CDT MANUAL DIFFERENTIAL, B Routine 03/31/2024 1:40 PM CDT CBC WITH DIFFERENTIAL, B Routine 03/31/2024 1:40 PM CDT Myelofibrosis Primary (HCC) documented in this encounter Results * (ABNORMAL) Morphology Evaluation (03/31/2024 1:40 PM CDT) RBC Morphology See Specific Findings 04/01/2024 3:39 PM CDT [facility] PLT Morphology See Specific Findings 04/01/2024 3:39 PM CDT [facility] PLT Estimate Increased(A ) Adequate 04/01/2024 3:39 PM CDT [facility] Anisocytosis Marked(A) 04/01/2024 3:39 PM CDT [facility] Bite Cells Slight(A) Not Seen 04/01/2024 3:39 PM CDT [facility] Basophilic Stippling Slight(A) 04/01/2024 3:39 PM CDT [facility] Dacrocytes Slight(A) Not Seen 04/01/2024 3:39 PM CDT [facility] Dimorphic RBC Present(A) Not Seen 04/01/2024 3:39 PM CDT [facility] Elliptocytes Slight(A) Not Seen 04/01/2024 3:39 PM CDT [facility] [place] Bodies Present(A) Not Seen 04/01/2024 3:39 PM CDT [facility] Hypochromia Slight(A) Not Seen 04/01/2024 3:39 PM CDT [facility] Large PLT Present(A) Not Seen 04/01/2024 3:39 PM CDT [facility] Macrocytosis Moderate(A) Not Seen 04/01/2024 3:39 PM CDT [facility] Microcytosis Moderate(A) Not Seen 04/01/2024 3:39 PM CDT [facility] Poikilocytosis Moderate(A) Not Seen 3:39 PM CDT [facility] Blood 03/31/2024 1:40 PM CDT 03/31/2024 1:41 PM CDT us Janusz Ardon LAB BLOOD ADD-ON Final R esult [facility] [address] [place] [address], [place] [facility] [place] [address], [place] [phone] * (ABNORMAL) Manual Differential, Blood (03/31/2024 1:40 PM CDT) Pathologist [facility] Segmented Neutrophils 66 50 - 75 % 04/01/2024 3:39 PM CDT [facility] Lymphocytes % 7(L) 18 - 42 % 04/01/2024 3:39 PM CDT [facility] Monocytes 4 2 - 11 % 04/01/2024 3:39 PM CDT [facility] Eosinophils 1 1 - 3 % 04/01/2024 3:39 PM CDT [facility] Basophils 1 0 - 2 % 04/01/2024 3:39 PM CDT [facility] Metamyelocytes 11(H) <1 % 04/01/2024 3:39 PM CDT [facility] Myelocytes 6(H) <0.5 % 04/01/2024 3:39 PM CDT [facility] Promyelocytes 2(H) <1 % 04/01/2024 3:39 PM CDT [facility] Blasts 2(H) <1 % 04/01/2024 3:39 PM CDT [facility] Nucleated RBC 172 /100 WBC 04/01/2024 3:39 PM CDT [facility] Manual Absolute Neutrophil Count 29.70(H) 1.56 - 6.45 x10(9)/L 04/01/2024 6:51 PM CDT [facility] Comment: REVISED RESULTS ----ADDITIONAL INFORMATION---- The manual absolute neutrophil count is derived from a manual differential count and therefore is not exactly comparable to the automated absolute neutrophil count. ----PREVIOUSLY REPORTED ---- 35.71, Flagged as: Abnormal_High (Reported 04/01/2024 15:39) Blood 03/31/2024 1:40 PM CDT 03/31/2024 1:41 PM CDT Janusz Ardon LAB BLOOD ADD-ON Edited Result - Final [facility] [address] [place] [address], [facility] [place] [address] [place] [address] * (ABNORMAL) CBC with Differential, Blood (03/31/2024 1:40 PM CDT) Hemoglobin 7.1(L) 11.6 - 15.0 g/dL 03/31/2024 3:07 PM CDT [facility] Hematocrit 23.8(L) 35.5 - 44.9 % 03/31/2024 3:32 PM CDT [facility] Erythrocytes 2.31(L) 3.92 - 5.13 x10(12)/ L 03/31/2024 3:32 PM CDT [facility] MCV 103.0(H) 78.2 - 97.9 fL 03/31/2024 3:32 PM CDT [facility] RBC Distrib Width 31.8(H) 12.2 - 16.1 % 03/31/2024 3:32 PM CDT [facility] Platelet Count 806(H) 157 - 371 x10(9)/L 03/31/2024 3:32 PM CDT [facility] Leukocytes 45.0(H) 3.4 - 9.6 x10(9)/L 04/01/2024 6:51 PM CDT [facility] Comment: REVISED RESULTS ----PREVIOUSLY REPORTED ---- 54.1, Flagged as: Abnormal_High (Reported 03/31/2024 15:32) Neutrophils See manual differential 1.56 - 6.45 x10(9)/L 03/31/2024 3:32 PM CDT [facility] Blood (Blood, Venous) 03/31/2024 1:40 PM CDT 03/31/2024 1:41 PM CDT Janusz Ardon LAB BLOOD ADD-ON Edited Result - Final [facility] [address] [place] [address], [facility] [place] [address] [place] [phone] documented in this encounter Visit Diagnoses Diagnosis Myelofibrosis Primary (HCC) documented in this encounter Additional Health Concerns Infection Onset Date Last Indicated Resolved Time Protective Environment 01/22/2023 01/22/202305/23 5:22 AM NETWORK AND THREAT SUPPORT SPECIALIST documented as of this encounter Care Teams Building Maintenance Repairer Relationship Specialty Start Date End Date Elsewhere, Pcp PCP - General Internal Medicine 01/30/24 documented as of this encounter
--- OUTSIDE RECORDS SUMMARY | 2024-06-07 12:30 | XMS_ITS | Encounter Summary ---
Author Organization [facility] Address [address] [place] [address] Care Team Providers Care Dermatology Nurse Practitioner Name Role Phone Elsewhere, Pcp Primary Care Provider Unavailabl e Encounter Details Date Type Department Care Team ([facility] st Contact Info) Description 03/29/2024 Orders Only Division of Hematology in [place], [place] [address] [place] [phone] Janusz Govea M.B.B.S. [address] [place] [address] Myelofibrosis Primary (HCC) (Primary Dx) Social History [...] Sex Assigned at Female 07/24/2021 11:03 AM CHERRY SORTER Legal Sex Female 9:12 PM CHERRY SORTER Gender Identity Female 07/24/2021 11:03 AM CHERRY SORTER Sexual Orientation Straight 07/24/2021 11 :03 AM CHERRY SORTER documented as of this encounter Plan of Treatment Upcoming Encounters Date Type Department Care Team (Latest Contact Info) Description 07/08/2024 8:15 AM CHERRY SORTER Clinical Communication Virtual Review in [place], [place] 200 [place] [phone] 07/09/2024 3:00 PM CHERRY SORTER Office Visit [facility] in [place], [place] [address] [place] [phone] Eliana Vargas M.D. [address] [place] [phone] 07/16/2024 8:30 AM CHERRY SORTER Appointment Department of Laboratory Medicine and Pathology, [facility], in [address] [phone] Matthew Mayes M.D. [address] [place] [phone] 07/16/2024 11:00 AM CHERRY SORTER Clinical Support Department of Nutrition and Diabetes Education in [place], [place] [address] [place] [phone] Matthew Mayes M.D. [address] [place] [phone] Karmen Zambrano, RDN, LD [address] [place] [phone] 07/16/2024 12:30 PM CHERRY SORTER Appointment Department of Cardiac Rehabilitation in [address] [phone] Matthew Mayes M.D. [address] [place] [phone] 07/16/2024 2:00 PM CHERRY SORTER Office Visit Department of Cardiovascular Medicine in [address] [phone] Matthew Mayes M.D. [address] [place] [phone] documented as of this encounter Results * (ABNORMAL) CBC with Differential, Blood (03/31/2024 [...] CDT us Janusz Ardon LAB BLOOD ADD-ON Edited Result - Final [facility] [address] [address], [facility] RDWG [facility] [place] [address] [place] [phone] documented in this encounter Visit Diagnoses Diagnosis Myelofibrosis Primary (HCC)- Primary documented in this encounter Additional Health Concerns Infection Onset Date Last Indicated Resolved Time Protective Environment 01/22/2023 01/22/202305/23 5:22 AM CHERRY SORTER documented as of this encounter Care Teams Dermatology Nurse Practitioner Relationship Specialty Start Date End Date Elsewhere, Pcp PCP - General Internal Medicine 01/30/24 documented as of this encounter
--- OUTSIDE RECORDS SUMMARY | 2024-06-07 12:30 | XMS_ITS | Encounter Summary ---
Author Organization [facility] Address [address] [place] [address] Care Team Providers Care All Terrain Vehicle Technician Name Role Phone Elsewhere, Pcp Primary Care Provider Unavailabl e Encounter Details Date Type Department Care Team ( Contact Info) Description 04/19/2024 Orders Only Division of Hematology in [place], [place] [address] [place] [phone] External, Ordering ProviderDewayne Social History Tobacco Use [...] Assigned at Female 07/24/2021 11:03 AM SUPERVISOR ENDLESS TRACK VEHICLE Legal Sex Female 9:12 PM SUPERVISOR ENDLESS TRACK VEHICLE Gender Identity Female 07/24/2021 11:03 AM SUPERVISOR ENDLESS TRACK VEHICLE Sexual Orientation Straight 07/24/2021 11 :03 AM SUPERVISOR ENDLESS TRACK VEHICLE documented as of this encounter Plan of Treatment Upcoming Encounters Date Type Department Care Team (Latest Contact Info) Description 07/08/2024 8:15 AM SUPERVISOR ENDLESS TRACK VEHICLE Clinical Communication Virtual Review in [place], [place] [address] [place] [phone] 07/09/2024 3:00 PM SUPERVISOR ENDLESS TRACK VEHICLE Office Visit [facility] in [place], [place] [address] [place] [phone] Eliana Vargas M.D. [address] [place] [phone] 07/16/2024 8:30 AM SUPERVISOR ENDLESS TRACK VEHICLE Appointment Department of Laboratory Medicine and Pathology, [facility] in [place], [place] [address] [place] [phone] Matthew Mayes M.D. [address] [place] [phone] 07/16/2024 11:00 AM SUPERVISOR ENDLESS TRACK VEHICLE Clinical Support Department of Nutrition and Diabetes Education in [place], [place] [address] [place] [phone] Matthew Mayes M.D. [address] [place] [phone] Karmen Zambrano, EVIEN, LD [address] [place] [phone] 07/16/2024 12:30 PM SUPERVISOR ENDLESS TRACK VEHICLE Appointment Department of Cardiac Rehabilitation in [address] [phone] Matthew Mayes M.D. [address] [place] [phone] 07/16/2024 2:00 PM SUPERVISOR ENDLESS TRACK VEHICLE Office Visit Department of Cardiovascular Medicine in [address] [phone] Matthew Mayes M.D. [address] [place] [phone] documented as of this encounter Procedures Procedure Name Priority Date/Time Associated Diagnosis Comments CBC WITH DIFFERENTIAL, B Routine 04/19/2024 11:34 AM CDT documented in this encounter Results * (ABNORMAL) CBC with Differential, Blood (04/19/2024 11:34 AM CDT) EXT Hematocrit 22.2(L) 33.0 - 51.0 % [facility] EXT MCV 101(H) 80 - 100 fL [facility] EXT Platelet Count 691(H) 140 - 440 K/uL [facility] EXT Neutrophils 24.00(H) 1.7 - 7.0 K/uL [facility] EXT Lymphocytes 7.10(H) 0.90 - 2.90 K/uL [facility] EXT Monocytes 4.10(H) 0.00 - 0.90 K/UL [facility] EXT Eosinophils 0.20 0.00 - 0.50 K/uL [facility] EXT Leukocytes 86.48(H) 4.50 - 11.00 K/uL [facility] EXT Hemoglobin 6.6(L) 12.0 - 16.0 gm/dL [facility] EXT Basophils 3.30(H) 0.00 - 0.30 K/uL [facility] 04/19/2024 11:3 4 AM CDT Narrative [facility] - 04/19/2024 12:05 PM CDT External results verified in Extract by Jennifer Peralta on 04/20/2024 at 02:[address] Govea us Ordering Provider External MKathleen LAB BLOOD ADD-ON Final Result [facility] [address] [place] [address], [facility] [phone] documented in this encounter Visit Diagnoses Not on filedocumented in this encounter Additional Health Concerns Infection Onset Date Last Indicated Resolved Time Protective Environment 01/22/2023 01/22/202305/23 5:22 AM SUPERVISOR ENDLESS TRACK VEHICLE documented as of this encounter Care Teams All Terrain Vehicle Technician Relationship Specialty Start Date End Date Elsewhere, Pcp PCP - General Internal Medicine 01/30/24 documented as of this encounter
--- OUTSIDE RECORDS SUMMARY | 2024-06-07 12:30 | XMS_ITS | Encounter Summary ---
Author Organization [facility] Address [address] [place] [address] Care Team Providers Care Country Manager Name Role Phone Elsewhere, Pcp Primary Care Provider Unavailabl e Reason for Visit * Reason Onset Date Comments Order Request 03/29/2024 Encounter Details Date Type Department Care Team ([facility] st Contact Info) Description 03/29/2024 Clinical Communication Division of Hematology in [place], [place] [address] [place] [phone] Janusz Govea M.B.BZahraaS. [address] [place] [phone] Order Request Social History Tobacco Use Types [...] Sex Assigned at Female 07/24/2021 11:03 AM STRATEGIC BUSINESS DEVELOPMENT Legal Sex Female 9:12 PM STRATEGIC BUSINESS DEVELOPMENT Gender Identity Female 07/24/2021 11:03 AM STRATEGIC BUSINESS DEVELOPMENT Sexual Orientation Straight 07/24/2021 11 :03 AM STRATEGIC BUSINESS DEVELOPMENT documented as of this encounter Plan of Treatment Upcoming Encounters Date Type Department Care Team (Latest Contact Info) Description 07/08/2024 8:15 AM STRATEGIC BUSINESS DEVELOPMENT Clinical Communication Virtual Review in [place], [place] 200 [place] [phone] 07/09/2024 3:00 PM STRATEGIC BUSINESS DEVELOPMENT Office Visit [facility] in [place], [place] [address] [place] [phone] Eliana Vargas M.D. [address] [place] [phone] 07/16/2024 8:30 AM STRATEGIC BUSINESS DEVELOPMENT Appointment Department of Laboratory Medicine and Pathology, [facility] in [address] [phone] Matthew Mayes M.D. [address] [place] [phone] 07/16/2024 11:00 AM STRATEGIC BUSINESS DEVELOPMENT Clinical Support Department of Nutrition and Diabetes Education in [place], [place] [address] [place] [phone] Matthew Mayes M.D. [address] [place] [phone] Karmen Zambrano, RDN, LD [address] [place] [phone] 07/16/2024 12:30 PM STRATEGIC BUSINESS DEVELOPMENT Appointment Department of Cardiac Rehabilitation in [place], [place] [address] [place] [phone] Matthew Mayes M.D. [address] [place] [phone] 07/16/2024 2:00 PM STRATEGIC BUSINESS DEVELOPMENT Office Visit Department of Cardiovascular Medicine in [address] [phone] Matthew Mayes M.D. [address] [place] [phone] documented as of this encounter Visit Diagnoses Not on filedocumented in this encounter Additional Health Concerns Infection Onset Date Last Indicated Resolved Time Protective Environment 01/22/2023 01/22/202305/23 5:22 AM STRATEGIC BUSINESS DEVELOPMENT documented as of this encounter Care Teams Country Manager Relationship Specialty Start Date End Date Elsewhere, Pcp PCP - General Internal Medicine 01/30/24 documented as of this encounter
--- OUTSIDE RECORDS SUMMARY | 2024-06-07 12:30 | XMS_ITS | Encounter Summary ---
Author Organization [facility] Address [address] [place] [address] Care Team Providers Care River Rafting Guide Name Role Phone Elsewhere, Pcp Primary Care Provider Unavailabl e Encounter Details Date Type Department Care Team ( Contact Info) Description 04/22/2024 Orders Only Department of Cardiovascular Medicine in [place], [place] [address] [place] [phone] Denita Chavez, RZahraaN. [address] [place] [phone] Dyspnea On Exertion (Primary Dx); Hypertension Pulmonary Primary (HCC) Social History Tobacco Use Types Packs/Day Years Used Date Smoking Tobacco: Former Cigarettes 7 2012 Passive Smoke Exposure: Never Smokeless Tobacco: [...] Sex Assigned at Female 07/24/2021 11:03 AM WEDGER Legal Sex Female 9:12 PM WEDGER Gender Identity Female 07/24/2021 11:03 AM WEDGER Sexual Orientation Straight 07/24/2021 11 :03 AM WEDGER documented as of this encounter Plan of Treatment Upcoming Encounters Date Type Department Care Team (Latest Contact Info) Description 07/08/2024 8:15 AM WEDGER Clinical Communication Virtual Review in [place], [place] 200 [place] [address] 07/09/2024 3:00 PM WEDGER Office Visit [facility] in [place], [place] [address] [place] [phone] Eliana Vargas M.D. [address] [place] [phone] 07/16/2024 8:30 AM WEDGER Appointment Department of Laboratory Medicine and Pathology, [facility], in [place], [place] [address] [place] [phone] Matthew Mayes M.D. [address] [place] [phone] 07/16/2024 11:00 AM WEDGER Clinical Support Department of Nutrition and Diabetes Education in [place], [place] [address] [place] [phone] Matthew Mayes M.D. [address] [place] [phone] Karmen Zambrano, EVIEN, LD [address] [place] [phone] 07/16/2024 12:30 PM WEDGER Appointment Department of Cardiac Rehabilitation in [place], [place] [address] [place] [phone] Matthew Mayes M.D. [address] [place] [phone] 07/16/2024 2:00 PM WEDGER Office Visit Department of Cardiovascular Medicine in [address] [phone] Matthew Mayes M.D. [address] [place] [phone] documented as of this encounter Results * (ABNORMAL) Basic Metabolic Panel (04/26/2024 2:25 PM CDT) Pathologist [facility] Potassium, P 4.5 3.6 - 5.2 mmol/L [...] M.D. LAB BLOOD ADD-ON Final Resu lt [facility] [address] [place] [phone], [facility] CNFL [facility] in [address] [address] * (ABNORMAL) CBC without Differential (04/26/2024 2:25 [...] M.D. LAB BLOOD ADD-ON Final Resu lt [facility] [address] [place] [phone], [facility] CNFL [facility] in [address] [address] documented in this encounter Visit Diagnoses Diagnosis Dyspnea On Exertion- Primary Hypertension Pulmonary Primary (HCC) documented in this encounter Additional Health Concerns Infection Onset Date Last Indicated Resolved Time Protective Environment 01/22/2023 01/22/202305/23 5:22 AM WEDGER documented as of this encounter Care Teams River Rafting Guide Relationship Specialty Start Date End Date Elsewhere, Pcp PCP - General Internal Medicine 01/30/24 documented as of this encounter
--- OUTSIDE RECORDS SUMMARY | 2024-06-07 12:30 | XMS_ITS | Encounter Summary ---
Author Organization [facility] Address [address] [place] [address] Care Team Providers Care Refinery Operator Crude Unit Name Role Phone Elsewhere, Pcp Primary Care Provider Unavailabl e Reason for Visit * Reason Comments Injections Luspatercept(NOT GIV EN) * Episode Based Medications (Routine) - Authorized Specialty Diagnoses / Procedures Referred By Serena t Referred To Contact Diagnoses Myelofibrosis Primary (HCC) Janusz Govea M.B.B.S. [address] [place] [phone] Phone: tel: fax: Division of Hematology in [place], [place] [address] [place] [phone] Phone: tel: Referral ID Status Reason Start Date Expiration Date V isits Requested Visits Authorized [id number] Authorized 02/10/2024 02/09/2026 99 99 Encounter Details Date Type Department Care Team (Late st Contact Info) Description 03/31/2024 2:30 PM CDT Infusion Department of Infusion Therapy in [address] [phone] Janusz Govea M.B.B.S. [address] [place] [phone] Myelofibrosis Primary (HCC) (Primary Dx) Social History [...] Sex Assigned at Female 07/24/2021 11:03 AM FAA CERTIFIED POWERPLANT MECHANIC Legal Sex Female 9:12 PM FAA CERTIFIED POWERPLANT MECHANIC Gender Identity Female 07/24/2021 11:03 AM FAA CERTIFIED POWERPLANT MECHANIC Sexual Orientation Straight 07/24/2021 11 :03 AM FAA CERTIFIED POWERPLANT MECHANIC documented as of this encounter Last Filed Vital Signs Vital Sign Reading Time Taken Comments Blood Pressure 124/55 03/31/2024 3:04 PM CDT Pulse 70 03/31/2024 3:04 PM CDT Temperature - - Respiratory Rate - - Oxygen Saturation - - Inhaled Oxygen Concentration - - Weight - - Height - - Body Mass Index - - documented in this encounter Progress Notes * Cordelia Claros R.N. - 03/31/2024 2:30 PM CDT Late Entry for 03/31/24: Pt here for lab draw and Luspatercept injection. While waiting for medication from pharmacy, pt walked out of infusion room. Pts explained that pt had waited long enough and was not going to get the injection today. Pharmacy notified. Injection good for 24 hours. I called pt this AM, 04/01/24, and offered appt today and pt declined to come in today. She stated she will be receiving a bloodtransfusion tomorrow in [place] and just doesn't feel well enough to travel to [place] today. Pharmacy notified. documented in this encounter Plan of Treatment Upcoming Encounters Date Type Department Care Team (Latest Contact Info) Description 07/08/2024 8:15 AM FAA CERTIFIED POWERPLANT MECHANIC Clinical Communication Virtual Review in [address] [phone] 07/09/2024 3:00 PM FAA CERTIFIED POWERPLANT MECHANIC Office Visit [facility] in [place], [place] [address] [place] [phone] Eliana Vargas M.D. [address] [place] [phone] 07/16/2024 8:30 AM FAA CERTIFIED POWERPLANT MECHANIC Appointment Department of Laboratory Medicine and Pathology, [facility] in [place], [place] [address] [place] [phone] Matthew Mayes M.D. [address] [place] [phone] 07/16/2024 11:00 AM FAA CERTIFIED POWERPLANT MECHANIC Clinical Support Department of Nutrition and Diabetes Education in [place], [place] [address] [place] [phone] Matthew Mayes M.D. [address] [place] [phone] Karmen Zambrano, JOSE, LD [address] [place] [phone] 07/16/2024 12:30 PM FAA CERTIFIED POWERPLANT MECHANIC Appointment Department of Cardiac Rehabilitation in [place], [place] [address] [place] [phone] Matthew Mayes M.D. [address] [place] [phone] 07/16/2024 2:00 PM FAA CERTIFIED POWERPLANT MECHANIC Office Visit Department of Cardiovascular Medicine in [address] [phone] Matthew Mayes M.D. [address] [place] [phone] documented as of this encounter Visit Diagnoses Diagnosis Myelofibrosis Primary (HCC)- Primary documented in this encounter Additional Health Concerns Infection Onset Date Last Indicated Resolved Time Protective Environment 01/22/2023 01/22/202305/23 5:22 AM FAA CERTIFIED POWERPLANT MECHANIC documented as of this encounter Care Teams Refinery Operator Crude Unit Relationship Specialty Start Date End Date Elsewhere, Pcp PCP - General Internal Medicine 01/30/24 documented as of this encounter
--- OUTSIDE RECORDS SUMMARY | 2024-06-07 12:30 | XMS_ITS | Encounter Summary ---
Author Organization [facility] Address [address] [place] [address] Care Team Providers Care Clinical Immunologist Name Role Phone Elsewhere, Pcp Primary Care Provider Unavailabl e Reason for Visit * Reason Comments Patient Education * Outpatient (Routine) - Closed Specialty Diagnoses / Procedures Referred By Contac t Referred To Contact Cardiovascular Disease Diagnoses Hypertension Pulmonary (HCC) Myelofibrosis (HCC) Dyspnea On Exertion Matthew Mayes M.D. [address] [place] [phone] Phone: tel: fax: [facility] Referral ID Status Reason Start Date Expiration Date Visits Re quested Visits Authorized [id number] Closed 04/06/2024 10/06/2025 1 1 Encounter Details Date Type Department Care Team (Latest Contact Info) Description 04/22/2024 2:30 PM CDT Virtual Visit Department of Cardiovascular Medicine in [place], [place] [address] [place] [phone] Matthew Mayes M.D. [address] [place] [phone] Denita Chavez R.N. [address] [place] [phone] Regurgitation Tricuspid (Primary Dx); Hypertension Pulmonary (HCC); Myelofibrosis (HCC); Dyspnea On Exertion; Failure Heart Right (HCC) Social History Tobacco Use Types Packs/Day Years Used Date Smoking Tobacco: Former Cigarettes 7 - 2012 Passive Smoke Exposure: Never Smokeless Tobacco: Never Comments:still smokes mariamando shady Alcohol Use Standard Drinks/Week Comments Yes [...] Assigned at Female 07/24/2021 11:03 AM SUPERVISOR DEHYDROGENATION Legal Sex Female 9:12 PM SUPERVISOR DEHYDROGENATION Gender Identity Female 07/24/2021 11:03 AM SUPERVISOR DEHYDROGENATION Sexual Orientation Straight 07/24/2021 11 :03 AM SUPERVISOR DEHYDROGENATION documented as of this encounter Patient Instructions * Attachments The following attachments cannot be sent through Care Everywhere. * VIDEO: RIGHT HEART CATHETERIZATION ([place]) * Instructions To Get Ready for Your Cardiac Catheterization or Heart Rhythm Procedure: [facility] (Maldivian) * About Your Heart-Catheter Procedures (Maldivian) * Tricuspid Valve Regurgitation (Insufficiency) (Maldivian) documented in this encounter Progress Notes * Denita Chavez R.N. - 04/22/2024 2:30 PM CDT SUBJECTIVE REASON FOR VISIT Pre-procedure education OBJECTIVE Nurse education visit was completed within the Pre-Procedure Clinic (PPC) as ordered by the referring provider for a Cushion Stuffer readiness review and education prior to procedure. The visit was conducted via telephone. Procedure to be done: Right Heart Cath (RHC) and Nitric Oxide Study Date of procedure: 04/27/24 MAXI completed within 30 days of procedure? No; to be completed in Cushion Stuffer pre-procedure Labs completed within 45 days of procedure? No; scheduled on 04/26/24. Hgb was last 6.6 but she will be getting 1 u RBCs on 04/23/24 and has recheck on 04/26/24. ECG completed within designated timeframe of procedure? Yes Allergy to contrast dye/iodine? No Medications -- Vitamins/Supplements Instructions: Do not take vitamins or supplements the morning of the procedure. Anticoagulation Plan Not applicable ASSESSMENT / PLAN Information Discussed Reviewed pre-procedure instructions with patient/family including: Basic information about the scheduled procedure. Fasting for 8 hours, 6 hours, and 2 hours prior to report time. Please refer to the ???Instructions To Get Ready for Your Cardiac Catheterization or Heart Rhythm Procedure: [facility] pamphlet for further details. Taking all medications as instructed. Calling the [facility] Service Line ([phone]) the evening before the procedure between the hours of 7:00 pm and midnight to learn what time and where to report to the hospital the next day. Needing a responsible adult (18 years of age or older) to be present the day of procedure includingat discharge for transportation home. Planning to stay within [address] [facility] overnight. Visitor Policy Please check the [place] Visitor Policy website for the most up to date visitor policy information. Disposition/Recommendation: protocol orders Information/Education: patient/caller able to teach back Caller agreeable to plan of care: yes The following references were used: patient education resources: as documented in the Education Activity and [facility] protocol: Cardiovascular Clinic Pre- Cardiac Invasive Catheterization ProcedurePatient Management documented in this encounter Plan of Treatment Upcoming Encounters Date Type Department Care Team (Latest Contact Info) Description 07/08/2024 8:15 AM SUPERVISOR DEHYDROGENATION Clinical Communication Virtual Review in [address] [phone] 07/09/2024 3:00 PM SUPERVISOR DEHYDROGENATION Office Visit [facility] in [address] [phone] Eliana Vargas M.D. [address] [place] [phone] 07/16/2024 8:30 AM SUPERVISOR DEHYDROGENATION Appointment Department of Laboratory Medicine and Pathology, [facility], in [address] [phone] Matthew Mayes M.D. [address] [place] [phone] 07/16/2024 11:00 AM SUPERVISOR DEHYDROGENATION Clinical Support Department of Nutrition and Diabetes Education in [address] [place] [phone] Matthew Mayes M.D. [address] [place] [phone] Karmen Zambrano, EVIEN, LD [address] [place] [phone] 07/16/2024 12:30 PM SUPERVISOR DEHYDROGENATION Appointment Department of Cardiac Rehabilitation in [place], [place] [address] [place] [address] Matthew Mayes M.D. [address] [place] [phone] 07/16/2024 2:00 PM SUPERVISOR DEHYDROGENATION Office Visit Department of Cardiovascular Medicine in [place], [place] [address] [place] [phone] Matthew Mayes M.D. [address] [place] [phone] documented as of this encounter Visit Diagnoses Diagnosis Regurgitation Tricuspid- Primary Hypertension Pulmonary (HCC) Myelofibrosis (HCC) Dyspnea On Exertion Failure Heart Right (HCC) documented in this encounter Additional Health Concerns Infection Onset Date Last Indicated Resolved Time Protective Environment 01/22/2023 01/22/202305/23 5:22 AM SUPERVISOR DEHYDROGENATION documented as of this encounter Care Teams Clinical Immunologist Relationship Specialty Start Date End Date Elsewhere, Pcp PCP - General Internal Medicine 01/30/24 documented as of this encounter
--- OUTSIDE RECORDS SUMMARY | 2024-06-07 12:30 | XMS_ITS | Encounter Summary ---
Author Organization [facility] Address [address] [place] [address] Care Team Providers Care Changer Fixer Name Role Phone Elsewhere, Pcp Primary Care Provider Unavailabl e Encounter Details Date Type Department Care Team ( Contact Info) Description 04/22/2024 Orders Only Division of Hematology in [place], [place] [address] [place] [phone] External, Ordering ProviderDewayne Social History Tobacco Use [...] Sex Assigned at Female 07/24/2021 11:03 AM MENHADEN VESSEL PILOT Legal Sex Female 9:12 PM MENHADEN VESSEL PILOT Gender Identity Female 07/24/2021 11:03 AM MENHADEN VESSEL PILOT Sexual Orientation Straight 07/24/2021 11 :03 AM MENHADEN VESSEL PILOT documented as of this encounter Plan of Treatment Upcoming Encounters Date Type Department Care Team (Latest Contact Info) Description 07/08/2024 8:15 AM MENHADEN VESSEL PILOT Clinical Communication Virtual Review in [place], [place] 200 [place] [phone] 07/09/2024 3:00 PM MENHADEN VESSEL PILOT Office Visit [facility] in [place], [place] [address] [place] [phone] Eliana Vargas M.D. [address] [place] [phone] 07/16/2024 8:30 AM MENHADEN VESSEL PILOT Appointment Department of Laboratory Medicine and Pathology, [facility] in [place], [place] [address] [place] [phone] Matthew Mayes M.D. [address] [place] [phone] 07/16/2024 11:00 AM MENHADEN VESSEL PILOT Clinical Support Department of Nutrition and Diabetes Education in [place], [place] [address] [place] [phone] Matthew Mayes M.D. [address] [place] [phone] Karmen Zambrano, EVIEN, LD [address] [place] [phone] 07/16/2024 12:30 PM MENHADEN VESSEL PILOT Appointment Department of Cardiac Rehabilitation in [address] [phone] Matthew Mayes M.D. [address] [place] [phone] 07/16/2024 2:00 PM MENHADEN VESSEL PILOT Office Visit Department of Cardiovascular Medicine in [address] [phone] Matthew Mayes M.D. [address] [place] [phone] documented as of this encounter Procedures Procedure Name Priority Date/Time Associated Diagnosis Comments CBC WITH DIFFERENTIAL, B Routine 04/22/2024 11:09 AM CDT documented in this encounter Results * (ABNORMAL) CBC with Differential, Blood (04/22/2024 11:09 AM CDT) EXT Hematocrit 23.3(L) 33.0 - 51.0 % SCANNED REPORT EXT MCV 99 80 - 100 fL SCANNED REPORT EXT Platelet Count 658(H) 140 - 440 K/uL SCANNED REPORT EXT RDW 27.8(H) 11.5 - 15.5 ML SCANNED REPORT EXT Lymphocytes 8.60(H) 0.90 - 2.90 K/uL SCANNED REPORT EXT Monocytes 6.70(H) 0.00 - 0.90 K/UL SCANNED REPORT EXT Eosinophils 0.10 0.00 - 0.50 K/uL SCANNED REPORT EXT WBC 86.91(H) 4.50 - 11.00 K/uL SCANNED REPORT EXT Hemoglobin 7.0(L) 12 - 16 gm/dL SCANNED REPORT EXT RBC 2.35(L) 4.00 - 5.20 m/uL SCANNED REPORT EXT Neutrophils 15.00(H) 1.7 - 7.0 K/uL SCANNED REPORT EXT Basophils 3.70(H) 0.00 - 0.30 K/uL SCANNED REPORT 04/22/2024 11:0 9 AM CDT Narrative SCANNED REPORT - 04/22/2024 12:04 PM CDT External results verified in Extract by Jocelyne Lang on 04/22/2024 at 12:59 PM. Xuan us Ordering Provider External M.D. LAB BLOOD ADD-ON Final Result SCANNED REPORT documented in this encounter Visit Diagnoses Not on filedocumented in this encounter Additional Health Concerns Infection Onset Date Last Indicated Resolved Time Protective Environment 01/22/2023 01/22/202305/23 5:22 AM MENHADEN VESSEL PILOT documented as of this encounter Care Teams Changer Fixer Relationship Specialty Start Date End Date Elsewhere, Pcp PCP - General Internal Medicine 01/30/24 documented as of this encounter
--- OUTSIDE RECORDS SUMMARY | 2024-06-07 12:30 | XMS_ITS | Encounter Summary ---
Author Organization [facility] Address [address] [place] [address] Care Team Providers Care Equal Opportunity Assistant Name Role Phone Elsewhere, Pcp Primary Care Provider Unavailabl e Reason for Visit * Reason Onset Date Comments Appt Request 03/30/2024 Encounter Details Date Type Department Care Team (Late Contact Info) Description 03/30/2024 Clinical Communication Department of Infusion Therapy in [address] [phone] Cordelia Claros, R.N. Appt Request Social History Tobacco Use Types Packs/Day [...] Sex Assigned at Female 07/24/2021 11:03 AM INPATIENT SERVICES DIRECTOR Legal Sex Female 9:12 PM INPATIENT SERVICES DIRECTOR Gender Identity Female 07/24/2021 11:03 AM INPATIENT SERVICES DIRECTOR Sexual Orientation Straight 07/24/2021 11 :03 AM INPATIENT SERVICES DIRECTOR documented as of this encounter Plan of Treatment Upcoming Encounters Date Type Department Care Team (Latest Contact Info) Description 07/08/2024 8:15 AM INPATIENT SERVICES DIRECTOR Clinical Communication Virtual Review in [place], [place] 200 [place] [address] 07/09/2024 3:00 PM INPATIENT SERVICES DIRECTOR Office Visit [facility] in [place], [place] [address] [place] [phone] Eliana Vargas M.D. [address] [place] [phone] 07/16/2024 8:30 AM INPATIENT SERVICES DIRECTOR Appointment Department of Laboratory Medicine and Pathology, [facility] in [address] [phone] Matthew Mayes M.D. [address] [place] [phone] 07/16/2024 11:00 AM INPATIENT SERVICES DIRECTOR Clinical Support Department of Nutrition and Diabetes Education in [address] [phone] Matthew Mayes M.D. [address] [place] [phone] Karmen Zambrano, EVIEN, LD [address] [place] [phone] 07/16/2024 12:30 PM INPATIENT SERVICES DIRECTOR Appointment Department of Cardiac Rehabilitation in [address] [address] Matthew Mayes M.D. [address] [place] [phone] 07/16/2024 2:00 PM INPATIENT SERVICES DIRECTOR Office Visit Department of Cardiovascular Medicine in [address] [phone] Matthew Mayes M.D. [address] [place] [phone] documented as of this encounter Visit Diagnoses Not on filedocumented in this encounter Additional Health Concerns Infection Onset Date Last Indicated Resolved Time Protective Environment 01/22/2023 01/22/202305/23 5:22 AM INPATIENT SERVICES DIRECTOR documented as of this encounter Care Teams Equal Opportunity Assistant Relationship Specialty Start Date End Date Elsewhere, Pcp PCP - General Internal Medicine 01/30/24 documented as of this encounter
--- OUTSIDE RECORDS SUMMARY | 2024-06-07 12:30 | XMS_ITS | Encounter Summary ---
Author Organization [facility] Address [address] [place] [address] Care Team Providers Care Concept Artist Name Role Phone Elsewhere, Pcp Primary Care Provider Unavailabl e Reason for Visit * Reason Onset Date Comments states cannot do regimen any more. 2023 Encounter Details Date Type Department Care Team (Latest Contact Info) Description 04/01/2024 Clinical [facility] [place], [place] [address] [place] [phone] Matthew Mayes M.D. [address] [place] [phone] states cannot do regimen any more. Social History Tobacco Use Types Packs/Day Years Used Date Smoking Tobacco: Former Cigarettes 1 7 - 2012 Passive Smoke Exposure: [...] Sex Assigned at Female 07/24/2021 11:03 AM QUARRYMAN Legal Sex Female 9:12 PM QUARRYMAN Gender Identity Female 07/24/2021 11:03 AM QUARRYMAN Sexual Orientation Straight 07/24/2021 11 :03 AM QUARRYMAN documented as of this encounter Plan of Treatment Upcoming Encounters Date Type Department Care Team (Latest Contact Info) Description 07/08/2024 8:15 AM QUARRYMAN Clinical Communication Virtual Review in [place], [place] 200 [place] [address] 07/09/2024 3:00 PM QUARRYMAN Office Visit [facility] in [place], [place] [address] [place] [phone] Eliana Vargas M.D. [address] [place] [phone] 07/16/2024 8:30 AM QUARRYMAN Appointment Department of Laboratory Medicine and Pathology, [facility] in [address] [phone] Matthew Mayes M.D. [address] [place] [phone] 07/16/2024 11:00 AM QUARRYMAN Clinical Support Department of Nutrition and Diabetes Education in [address] [phone] Matthew Mayes M.D. [address] [place] [phone] Karmen Zambrano, EVIEN, LD [address] [place] [phone] 07/16/2024 12:30 PM QUARRYMAN Appointment Department of Cardiac Rehabilitation in [address] [phone] Matthew Mayes M.D. [address] [place] [phone] 07/16/2024 2:00 PM QUARRYMAN Office Visit Department of Cardiovascular Medicine in [address] [phone] Matthew Mayes M.D. [address] [place] [address] documented as of this encounter Visit Diagnoses Not on filedocumented in this encounter Additional Health Concerns Infection Onset Date Last Indicated Resolved Time Protective Environment 01/22/2023 01/22/202305/23 5:22 AM QUARRYMAN documented as of this encounter Care Teams Concept Artist Relationship Specialty Start Date End Date Elsewhere, Pcp PCP - General Internal Medicine 01/30/24 documented as of this encounter
--- OUTSIDE RECORDS SUMMARY | 2024-06-07 12:30 | XMS_ITS | Encounter Summary ---
Author Organization [facility] Address [address] [place] [address] Care Team Providers Care Metal Sprayer Machined Parts Name Role Phone Elsewhere, Pcp Primary Care Provider Unavailabl e Reason for Visit * Reason Comments Edema Encounter Details Date Type Department Care Team ([facility] st Contact Info) Description 04/06/2024 Documentation Department of Cardiovascular Medicine in [place], [place] [address] [place] [phone] Matthew Mayes M.D. [address] [place] [phone] Edema Social History Tobacco Use Types Packs/Day Years [...] Assigned at Female 07/24/2021 11:03 AM SENIOR MAINTENANCE MECHANIC Legal Sex Female 9:12 PM SENIOR MAINTENANCE MECHANIC Gender Identity Female 07/24/2021 11:03 AM SENIOR MAINTENANCE MECHANIC Sexual Orientation Straight 07/24/2021 11 :03 AM SENIOR MAINTENANCE MECHANIC documented as of this encounter Progress Notes * Matthew Mayes M.D. - 04/06/2024 6:48 PM CDT She is describing increasing frustration with fluid retention and diuretic requirements. I have ordered right heart cath for April 23, a day I am in lab and we will do that and then see what approaches may be best including additional consideration of percutaneous tricuspid repair for TR, or other therapy for PHTN depending on findings. In past mostly a high output situation in context of anemia but also some elevation of PVR, around 3 GARIBAY in 2021. documented in this encounter Plan of Treatment Upcoming Encounters Date Type Department Care Team (Latest Contact Info) Description 07/08/2024 8:15 AM SENIOR MAINTENANCE MECHANIC Clinical Communication Virtual Review in [address] [phone] 07/09/2024 3:00 PM SENIOR MAINTENANCE MECHANIC Office Visit [facility] in [address] [phone] Eliana Vargas M.D. [address] [place] [phone] 07/16/2024 8:30 AM SENIOR MAINTENANCE MECHANIC Appointment Department of Laboratory Medicine and Pathology, [facility], in [address] [phone] Matthew Mayes M.D. [address] [place] [phone] 07/16/2024 11:00 AM SENIOR MAINTENANCE MECHANIC Clinical Support Department of Nutrition and Diabetes Education in [address] [phone] Matthew Mayes M.D. [address] [place] [phone] Karmen Zambrano, EVIEN, LD [address] [place] [phone] 07/16/2024 12:30 PM SENIOR MAINTENANCE MECHANIC Appointment Department of Cardiac Rehabilitation in [place], [place] [address] [place] [phone] Matthew Mayes M.D. [address] [place] [phone] 07/16/2024 2:00 PM SENIOR MAINTENANCE MECHANIC Office Visit Department of Cardiovascular Medicine in [place], [place] [address] [place] [phone] Matthew Mayes M.D. [address] [place] [phone] documented as of this encounter Visit Diagnoses Not on filedocumented in this encounter Additional Health Concerns Infection Onset Date Last Indicated Resolved Time Protective Environment 01/22/2023 01/22/202305/23 5:22 AM SENIOR MAINTENANCE MECHANIC documented as of this encounter Care Teams Metal Sprayer Machined Parts Relationship Specialty Start Date End Date Elsewhere, Pcp PCP - General Internal Medicine 01/30/24 documented as of this encounter
--- OUTSIDE RECORDS SUMMARY | 2024-06-07 12:30 | XMS_ITS | Encounter Summary ---
Author Organization [facility] Address [address] [place] [address] Care Team Providers Care Ramp Agent Name Role Phone Elsewhere, Pcp Primary Care Provider Unavailabl e Encounter Details Date Type Department Care Team ( Contact Info) Description 03/25/2024 Clinical Communication [facility] in [place], [place] [address] [place] [phone] Eliana Vargas M.D. [address] [place] [phone] Social History Tobacco Use Types Packs/Day Years [...] Assigned at Female 07/24/2021 11:03 AM RN INTAKE Legal Sex Female 9:12 PM RN INTAKE Gender Identity Female 07/24/2021 11:03 AM RN INTAKE Sexual Orientation Straight 07/24/2021 11 :03 AM RN INTAKE documented as of this encounter Plan of Treatment Upcoming Encounters Date Type Department Care Team (Latest Contact Info) Description 07/08/2024 8:15 AM RN INTAKE Clinical Communication Virtual Review in [place], [place] 200 [place] [address] 07/09/2024 3:00 PM RN INTAKE Office Visit [facility] in [place], [place] [address] [place] [phone] Eliana Vargas M.D. [address] [place] [phone] 07/16/2024 8:30 AM RN INTAKE Appointment Department of Laboratory Medicine and Pathology, [facility] in [place], [place] [address] [place] [phone] Matthew Mayes M.D. [address] [place] [phone] 07/16/2024 11:00 AM RN INTAKE Clinical Support Department of Nutrition and Diabetes Education in [address] [phone] Matthew Mayes M.D. [address] [place] [phone] Karmen Zambrano, EVIEN, LD [address] [place] [phone] 07/16/2024 12:30 PM RN INTAKE Appointment Department of Cardiac Rehabilitation in [address] [phone] Matthew Mayes M.D. [address] [place] [phone] 07/16/2024 2:00 PM RN INTAKE Office Visit Department of Cardiovascular Medicine in [address] [phone] Matthew Mayes M.D. [address] [place] [phone] documented as of this encounter Visit Diagnoses Not on filedocumented in this encounter Additional Health Concerns Infection Onset Date Last Indicated Resolved Time Protective Environment 01/22/2023 01/22/202305/23 5:22 AM RN INTAKE documented as of this encounter Care Teams Ramp Agent Relationship Specialty Start Date End Date Elsewhere, Pcp PCP - General Internal Medicine 01/30/24 documented as of this encounter
--- OUTSIDE RECORDS SUMMARY | 2024-06-07 12:30 | XMS_ITS | Encounter Summary ---
Author Organization [facility] Address [address] [place] [address] Care Team Providers Care Electric Motor Tester Name Role Phone Elsewhere, Pcp Primary Care Provider Unavailabl e Encounter Details Date Type Department Care Team ( Contact Info) Description 04/14/2024 Orders Only Division of Hematology in [place], [place] [address] [place] [phone] External, Ordering ProviderDewayne Social History Tobacco Use [...] Sex Assigned at Female 07/24/2021 11:03 AM WELL DRILL OPERATOR HELPER CABLE TOOL Legal Sex Female 9:12 PM WELL DRILL OPERATOR HELPER CABLE TOOL Gender Identity Female 07/24/2021 11:03 AM WELL DRILL OPERATOR HELPER CABLE TOOL Sexual Orientation Straight 07/24/2021 11 :03 AM WELL DRILL OPERATOR HELPER CABLE TOOL documented as of this encounter Plan of Treatment Upcoming Encounters Date Type Department Care Team (Latest Contact Info) Description 07/08/2024 8:15 AM WELL DRILL OPERATOR HELPER CABLE TOOL Clinical Communication Virtual Review in [place], [place] 200 [place] [address] 07/09/2024 3:00 PM WELL DRILL OPERATOR HELPER CABLE TOOL Office Visit [facility] in [place], [place] [address] [place] [phone] Eliana Vargas M.D. [address] [place] [phone] 07/16/2024 8:30 AM WELL DRILL OPERATOR HELPER CABLE TOOL Appointment Department of Laboratory Medicine and Pathology, [facility] in [place], [place] [address] [place] [phone] Matthew Mayes M.D. [address] [place] [phone] 07/16/2024 11:00 AM WELL DRILL OPERATOR HELPER CABLE TOOL Clinical Support Department of Nutrition and Diabetes Education in [place], [place] [address] [place] [phone] Matthew Mayes M.D. [address] [place] [phone] Karmen Zambrano, EVIEN, LD [address] [place] [phone] 07/16/2024 12:30 PM WELL DRILL OPERATOR HELPER CABLE TOOL Appointment Department of Cardiac Rehabilitation in [address] [phone] Matthew Mayes M.D. [address] [place] [phone] 07/16/2024 2:00 PM WELL DRILL OPERATOR HELPER CABLE TOOL Office Visit Department of Cardiovascular Medicine in [address] [phone] Matthew Mayes M.D. [address] [place] [phone] documented as of this encounter Procedures Procedure Name Priority Date/Time Associated Diagnosis Comments CBC WITH DIFFERENTIAL, B Routine 04/14/2024 10:16 AM CDT documented in this encounter Results * (ABNORMAL) CBC with Differential, Blood (04/14/2024 10:16 AM CDT) EXT Leukocytes 97.15(H) 4.50 - 11.00 K/uL SCANNED REPORT EXT RBC 2.20(L) 4.00 - 5.20 m/uL SCANNED REPORT EXT Hemoglobin 6.4(L) 12.0 - 16.0 gm/dL SCANNED REPORT EXT Hematocrit 22.1(L) 33.0 - 51.0 % SCANNED REPORT EXT MCV 101(H) 80 - 100 fl SCANNED REPORT EXT Platelet Count 808(H) 140 - 440 K/uL SCANNED REPORT EXT Neutrophils 58.90(H) 1.7 - 7.0 K/uL SCANNED REPORT EXT Lymphocytes 17.20(H) 0.90 - 2.90 K/uL SCANNED REPORT EXT Monocytes 11.20(H) 0.00 - 0.90 K/UL SCANNED REPORT EXT Eosinophils 0.30 0.00 - 0.50 K/uL SCANNED REPORT EXT Basophils 9.60(H) 0.00 - 0.30 K/uL SCANNED REPORT 04/14/2024 10:1 6 AM CDT Narrative SCANNED REPORT - 04/14/2024 10:36 AM CDT External results verified in Extract by Jocelyne Lang on 04/15/2024 at 01:43 PM. Xuan us Ordering Provider External M.D. LAB BLOOD ADD-ON Final Result SCANNED REPORT documented in this encounter Visit Diagnoses Not on filedocumented in this encounter Additional Health Concerns Infection Onset Date Last Indicated Resolved Time Protective Environment 01/22/2023 01/22/202305/23 5:22 AM WELL DRILL OPERATOR HELPER CABLE TOOL documented as of this encounter Care Teams Electric Motor Tester Relationship Specialty Start Date End Date Elsewhere, Pcp PCP - General Internal Medicine 01/30/24 documented as of this encounter
--- OUTSIDE RECORDS SUMMARY | 2024-06-07 12:30 | XMS_ITS | Encounter Summary ---
Author Organization [facility] Address [address] [place] [address] Care Team Providers Care Box Stacker Name Role Phone Elsewhere, Pcp Primary Care Provider Unavailabl e Reason for Referral * Outpatient (Routine) - Closed Specialty Diagnoses / Procedures Referred By Contac t Referred To Contact Cardiovascular Disease Diagnoses Hypertension Pulmonary (HCC) Myelofibrosis (HCC) Dyspnea On Exertion Matthew Mayes M.D. 200 [place] [address] Phone: tel: fax: [facility] Referral ID Status Reason Start Date Expiration Date Visits Re quested Visits Authorized [id number] Closed 04/06/2024 10/06/2025 1 1 * Outpatient (Routine) - Closed Specialty Diagnoses / Procedures Referred By Contjayjay matson Referred To Contact Cardiovascular Disease Diagnoses Hypertension Pulmonary (HCC) Myelofibrosis (HCC) Dyspnea On Exertion [place] [address] Phone: tel: fax: [facility] Referral ID Status Reason Start Date Expiration Date Visits Re quested Visits Authorized [id number] Closed 04/06/2024 10/06/2025 1 1 Scheduling Instructions At [facility] Encounter Details Date Type Department Care Team (Late st Contact Info) Description 04/06/2024 Orders Only Department of Cardiovascular Medicine in [place], [place] [address] [place] [phone] Matthew Mayes M.D. [address] [place] [phone] Hypertension Pulmonary (HCC) (Primary Dx); Myelofibrosis (HCC); Dyspnea On Exertion; Regurgitation Tricuspid Social History Tobacco Use Types Packs/Day Years [...] Sex Assigned at Female 07/24/2021 11:03 AM PITCH FLAKER Legal Sex Female 9:12 PM PITCH FLAKER Gender Identity Female 07/24/2021 11:03 AM PITCH FLAKER Sexual Orientation Straight 07/24/2021 11 :03 AM PITCH FLAKER documented as of this encounter Plan of Treatment Upcoming Encounters Date Type Department Care Team (Latest Contact Info) Description 07/08/2024 8:15 AM PITCH FLAKER Clinical Communication Virtual Review in [place], [place] 200 [place] [address] 07/09/2024 3:00 PM PITCH FLAKER Office Visit [facility] in [place], [place] [address] [place] [phone] Eliana Vargas M.D. [address] [place] [phone] 07/16/2024 8:30 AM PITCH FLAKER Appointment Department of Laboratory Medicine and Pathology, [facility], in [place], [place] [address] [place] [phone] Matthew Mayes M.D. [address] [place] [phone] 07/16/2024 11:00 AM PITCH FLAKER Clinical Support Department of Nutrition and Diabetes Education in [place], [place] [address] [place] [phone] Matthew Mayes M.D. [address] [place] [phone] Karmen Zambrano, EVIEN, LD [address] [place] [phone] 07/16/2024 12:30 PM PITCH FLAKER Appointment Department of Cardiac Rehabilitation in [place], [place] [address] [place] [phone] Matthew Mayes M.D. [address] [place] [phone] 07/16/2024 2:00 PM PITCH FLAKER Office Visit Department of Cardiovascular Medicine in [place], [place] [address] [place] [phone] Matthew Mayes M.D. [address] [place] [phone] Scheduled Referrals Name Type Priority Associated Diagnoses Order Schedule Cardiovascular Disease office visit (clinic) Outpatient Referral Routine Hypertension Pulmonary (HCC) Myelofibrosis (HCC) Dyspnea On Exertion 1 Occurrences starting 04/06/2024 until 07/06/2025 Cardiovascular Disease nurse visit (clinic) Outpatient Referral Routine Hypertension Pulmonary (HCC) Myelofibrosis (HCC) Dyspnea On Exertion 1 Occurrences starting 04/06/2024 until 07/06/2025 documented as of this encounter Visit Diagnoses Diagnosis Hypertension Pulmonary (HCC)- Primary Myelofibrosis (HCC) Dyspnea On Exertion Regurgitation Tricuspid documented in this encounter Additional Health Concerns Infection Onset Date Last Indicated Resolved Time Protective Environment 01/22/2023 01/22/202305/23 5:22 AM PITCH FLAKER documented as of this encounter Care Teams Box Stacker Relationship Specialty Start Date End Date Elsewhere, Pcp PCP - General Internal Medicine 01/30/24 documented as of this encounter
--- OUTSIDE RECORDS SUMMARY | 2024-06-07 12:30 | XMS_ITS | Encounter Summary ---
Author Organization [facility] Address [address] [place] [address] Care Team Providers Care Engineering Mgr Name Role Phone Elsewhere, Pcp Primary Care Provider Unavailabl e Encounter Details Date Type Department Care Team ( Contact Info) Description 03/18/2024 Orders Only Division of Hematology in [place], [place] [address] [place] [phone] External, Ordering ProviderDewayne Social History Tobacco Use [...] Assigned at Female 07/24/2021 11:03 AM BILLBOARD INSTALLER Legal Sex Female 9:12 PM BILLBOARD INSTALLER Gender Identity Female 07/24/2021 11:03 AM BILLBOARD INSTALLER Sexual Orientation Straight 07/24/2021 11 :03 AM BILLBOARD INSTALLER documented as of this encounter Plan of Treatment Upcoming Encounters Date Type Department Care Team (Latest Contact Info) Description 07/08/2024 8:15 AM BILLBOARD INSTALLER Clinical Communication Virtual Review in [place], [place] [address] [place] [phone] 07/09/2024 3:00 PM BILLBOARD INSTALLER Office Visit [facility] in [place], [place] [address] [place] [phone] Eliana Vargas M.D. [address] [place] [phone] 07/16/2024 8:30 AM BILLBOARD INSTALLER Appointment Department of Laboratory Medicine and Pathology, [facility] in [place], [place] [address] [place] [phone] Matthew Mayes M.D. [address] [place] [phone] 07/16/2024 11:00 AM BILLBOARD INSTALLER Clinical Support Department of Nutrition and Diabetes Education in [place], [place] [address] [place] [phone] Matthew Mayes M.D. [address] [place] [phone] Karmen Zambrano, EVIEN, LD [address] [place] [phone] 07/16/2024 12:30 PM BILLBOARD INSTALLER Appointment Department of Cardiac Rehabilitation in [address] [phone] Matthew Mayes M.D. [address] [place] [phone] 07/16/2024 2:00 PM BILLBOARD INSTALLER Office Visit Department of Cardiovascular Medicine in [address] [phone] Matthew Mayes M.D. [address] [place] [phone] documented as of this encounter Procedures Procedure Name Priority Date/Time Associated Diagnosis Comments CBC WITH DIFFERENTIAL, B Routine 03/18/2024 10:20 AM CDT CBC WITH DIFFERENTIAL, B Routine 03/18/2024 10:20 AM CDT documented in this encounter Results * (ABNORMAL) CBC with Differential, Blood (03/18/2024 10:20 AM CDT) EXT Leukocytes 89.90(H) 4.50 - 11.00 K/uL [facility] EXT MCV 103(H) 80 - [address] [facility] EXT Platelet Count 789(H) 140 - 440 K/uL [facility] EXT Neutrophils 41.90(H) 1.7 - 7.0 K/uL [facility] EXT Lymphocytes 25.10(H) 0.90 - 2.90 K/uL [facility] EXT Monocytes 14.40 0.00 - 0.90 K/UL [facility] EXT Eosinophils 0.30 0.00 - 0.50 K/uL [facility] 03/18/2024 10:2 0 AM CDT Narrative [facility] - 03/18/2024 11:01 AM CDT Source result document attached to Order Number [id number] ([id number]) dated 03/18/2024. External results verified in Extract by Jennifer Peralta on 03/19/2024 at 07:58 AM. us Ordering Provider External Dewayne LAB BLOOD ADD-ON Final Result Infoharmoni RST [facility] [address] [place] [address] * (ABNORMAL) CBC with Differential, Blood (03/18/2024 10:20 AM CDT) EXT RBC 2.40(L) 4.00 - 5.20 m/uL [facility] EXT Hemoglobin 7.3(L) 12.0 - 16.0 gm/dL [facility] 03/18/2024 10:[address] [facility] - 03/18/2024 11:02 AM CDT External results verified in Extract by Jennifer Peralta on 03/19/2024 at 07:58 AM. us Ordering Provider External M.D. LAB BLOOD ADD-ON Final Result Performing Organization Address City/State/[facility] Co de Phone Number [facility] [address] [place] [address] documented in this encounter Visit Diagnoses Not on filedocumented in this encounter Additional Health Concerns Infection Onset Date Last Indicated Resolved Time Protective Environment 01/22/2023 01/22/202305/23 5:22 AM BILLBOARD INSTALLER documented as of this encounter Care Teams Engineering Mgr Relationship Specialty Start Date End Date Elsewhere, Pcp PCP - General Internal Medicine 01/30/24 documented as of this encounter
--- OUTSIDE RECORDS SUMMARY | 2024-06-07 12:30 | XMS_ITS | Encounter Summary ---
Author Organization [facility] Address [address] [place] [address] Care Team Providers Care Compressor Operator Adjuster Name Role Phone Elsewhere, Pcp Primary Care Provider Unavailabl e Reason for Visit * Reason Onset Date Comments Blood request 04/16/2024 Encounter Details Date Type Department Care Team (Late st Contact Info) Description 04/16/2024 Clinical Communication Division of Hematology in [place], [place] [address] [place] [phone] Janusz Govea M.B.BZahraaS. [address] [place] [phone] Blood request Social History Tobacco Use Types Packs/Day Years [...] Sex Assigned at Female 07/24/2021 11:03 AM RESERVATIONIST Legal Sex Female 9:12 PM RESERVATIONIST Gender Identity Female 07/24/2021 11:03 AM RESERVATIONIST Sexual Orientation Straight 07/24/2021 11 :03 AM RESERVATIONIST documented as of this encounter Plan of Treatment Upcoming Encounters Date Type Department Care Team (Latest Contact Info) Description 07/08/2024 8:15 AM RESERVATIONIST Clinical Communication Virtual Review in [place], [place] 200 [place] [phone] 07/09/2024 3:00 PM RESERVATIONIST Office Visit [facility] in [place], [place] [address] [place] [phone] Eliana Vargas M.D. [address] [place] [phone] 07/16/2024 8:30 AM RESERVATIONIST Appointment Department of Laboratory Medicine and Pathology, [facility] in [address] [phone] Matthew Mayes M.D. [address] [place] [phone] 07/16/2024 11:00 AM RESERVATIONIST Clinical Support Department of Nutrition and Diabetes Education in [place], [place] [address] [place] [phone] Matthew Mayes M.D. [address] [place] [phone] Karmen Zambrano, RDN, LD [address] [place] [phone] 07/16/2024 12:30 PM RESERVATIONIST Appointment Department of Cardiac Rehabilitation in [place], [place] [address] [place] [phone] Matthew Mayes M.D. [address] [place] [phone] 07/16/2024 2:00 PM RESERVATIONIST Office Visit Department of Cardiovascular Medicine in [address] [phone] Matthew Mayes M.D. [address] [place] [phone] documented as of this encounter Visit Diagnoses Not on filedocumented in this encounter Additional Health Concerns Infection Onset Date Last Indicated Resolved Time Protective Environment 01/22/2023 01/22/202305/23 5:22 AM RESERVATIONIST documented as of this encounter Care Teams Compressor Operator Adjuster Relationship Specialty Start Date End Date Elsewhere, Pcp PCP - General Internal Medicine 01/30/24 documented as of this encounter
--- OUTSIDE RECORDS SUMMARY | 2024-06-07 12:30 | XMS_ITS | Encounter Summary ---
Author Organization [facility] Address [address] [place] [address] Care Team Providers Care Sales Route Driver Name Role Phone Elsewhere, Pcp Primary Care Provider Unavailabl e Encounter Details Date Type Department Care Team ( Contact Info) Description 04/15/2024 Clinical Communication Division of Hematology in [place], [place] [address] [place] [phone] Janusz Govea M.B.B.S. [address] [place] [phone] Social History Tobacco Use Types Packs/Day Years [...] Sex Assigned at Female 07/24/2021 11:03 AM ASSOCIATE PROFESSOR OF GEOLOGY Legal Sex Female 9:12 PM ASSOCIATE PROFESSOR OF GEOLOGY Gender Identity Female 07/24/2021 11:03 AM ASSOCIATE PROFESSOR OF GEOLOGY Sexual Orientation Straight 07/24/2021 11 :03 AM ASSOCIATE PROFESSOR OF GEOLOGY documented as of this encounter Plan of Treatment Upcoming Encounters Date Type Department Care Team (Latest Contact Info) Description 07/08/2024 8:15 AM ASSOCIATE PROFESSOR OF GEOLOGY Clinical Communication Virtual Review in [place], [place] 200 [place] [phone] 07/09/2024 3:00 PM ASSOCIATE PROFESSOR OF GEOLOGY Office Visit [facility] in [place], [place] [address] [place] [phone] Eliana Vargas M.D. [address] [place] [phone] 07/16/2024 8:30 AM ASSOCIATE PROFESSOR OF GEOLOGY Appointment Department of Laboratory Medicine and Pathology, [facility], in [place], [place] [address] [place] [phone] Matthew Mayes M.D. [address] [place] [phone] 07/16/2024 11:00 AM ASSOCIATE PROFESSOR OF GEOLOGY Clinical Support Department of Nutrition and Diabetes Education in [place], [place] [address] [place] [phone] Matthew Mayes M.D. [address] [place] [phone] Karmen Zambrano, EVIEN, LD [address] [place] [phone] 07/16/2024 12:30 PM ASSOCIATE PROFESSOR OF GEOLOGY Appointment Department of Cardiac Rehabilitation in [place], [place] [address] [place] [phone] Matthew Mayes M.D. [address] [place] [phone] 07/16/2024 2:00 PM ASSOCIATE PROFESSOR OF GEOLOGY Office Visit Department of Cardiovascular Medicine in [address] [phone] Matthew Mayes M.D. [address] [place] [phone] documented as of this encounter Visit Diagnoses Not on filedocumented in this encounter Additional Health Concerns Infection Onset Date Last Indicated Resolved Time Protective Environment 01/22/2023 01/22/202305/23 5:22 AM ASSOCIATE PROFESSOR OF GEOLOGY documented as of this encounter Care Teams Sales Route Driver Relationship Specialty Start Date End Date Elsewhere, Pcp PCP - General Internal Medicine 01/30/24 documented as of this encounter
--- OUTSIDE RECORDS SUMMARY | 2024-06-07 12:30 | XMS_ITS | Encounter Summary ---
Author Organization [facility] Address [address] [place] [address] Care Team Providers Care Rn Psych Name Role Phone Elsewhere, Pcp Primary Care Provider Unavailabl e Encounter Details Date Type Department Care Team ( Contact Info) Description 03/30/2024 Clinical Communication Division of Hematology in [place], [place] [address] [place] [phone] Janusz Govea M.B.B.S. [address] [place] [phone] Social History Tobacco Use Types Packs/Day Years [...] Sex Assigned at Female 07/24/2021 11:03 AM MITTEN SEWER Legal Sex Female 9:12 PM MITTEN SEWER Gender Identity Female 07/24/2021 11:03 AM MITTEN SEWER Sexual Orientation Straight 07/24/2021 11 :03 AM MITTEN SEWER documented as of this encounter Plan of Treatment Upcoming Encounters Date Type Department Care Team (Latest Contact Info) Description 07/08/2024 8:15 AM MITTEN SEWER Clinical Communication Virtual Review in [place], [place] 200 [place] [phone] 07/09/2024 3:00 PM MITTEN SEWER Office Visit [facility] in [place], [place] [address] [place] [phone] Eliana Vargas M.D. [address] [place] [phone] 07/16/2024 8:30 AM MITTEN SEWER Appointment Department of Laboratory Medicine and Pathology, [facility], in [place], [place] [address] [place] [phone] Matthew Mayes M.D. [address] [place] [phone] 07/16/2024 11:00 AM MITTEN SEWER Clinical Support Department of Nutrition and Diabetes Education in [place], [place] [address] [place] [phone] Matthew Mayes M.D. [address] [place] [phone] Karmen Zambrano, EVIEN, LD [address] [place] [phone] 07/16/2024 12:30 PM MITTEN SEWER Appointment Department of Cardiac Rehabilitation in [place], [place] [address] [place] [phone] Matthew Mayes M.D. [address] [place] [phone] 07/16/2024 2:00 PM MITTEN SEWER Office Visit Department of Cardiovascular Medicine in [address] [phone] Matthew Mayes M.D. [address] [place] [phone] documented as of this encounter Visit Diagnoses Not on filedocumented in this encounter Additional Health Concerns Infection Onset Date Last Indicated Resolved Time Protective Environment 01/22/2023 01/22/202305/23 5:22 AM MITTEN SEWER documented as of this encounter Care Teams Rn Psych Relationship Specialty Start Date End Date Elsewhere, Pcp PCP - General Internal Medicine 01/30/24 documented as of this encounter
--- OUTSIDE RECORDS SUMMARY | 2024-06-07 12:30 | XMS_ITS | Encounter Summary ---
Author Organization [facility] Address [address] [place] [address] Care Team Providers Care Book Mender Name Role Phone Elsewhere, Pcp Primary Care Provider Unavailabl e Reason for Visit * Episode Based Medications (Routine) - Authorized Specialty Diagnoses / Procedures Referred By Contac t Referred To Contact Diagnoses Myelofibrosis Primary (HCC) Janusz Govea M.B.B.S. [address] [place] [phone] Phone: tel: fax: Division of Hematology in [place], [place] [address] [place] [phone] Phone: tel: Referral ID Status Reason Start Date Expiration Date V isits Requested Visits Authorized [id number] Authorized 02/10/2024 02/09/2026 99 99 Encounter Details Date Type Department Care Team (Latest Contact Info) Description 03/09/2024 11:15 AM CDT - 03/09/2024 11:59 PM CDT Hospital Encounter Department of Laboratory Medicine in [place], [place] [address] [place] [phone] Janusz Govea M.B.B.S. [address] [place] [phone] Myelofibrosis Primary (HCC) Discharge Disposition: Home or [...] Sex Assigned at Female 07/24/2021 11:03 AM BOILERMAKER PIPE FITTER Legal Sex Female 9:12 PM BOILERMAKER PIPE FITTER Gender Identity Female 07/24/2021 11:03 AM BOILERMAKER PIPE FITTER Sexual Orientation Straight 07/24/2021 11 :03 AM BOILERMAKER PIPE FITTER documented as of this encounter Medications at [...] (two) times a day. 11/11/2023 RX WELCOME [id number] P ONLY Welcome packet 1 each 07/28/2023 2:07 PM BOILERMAKER PIPE FITTER 07/18/2023 sennosides (SENOKOT) 8.6 mg tablet Take [...] chew. 30 tablet 3 08/21/2023 12:21 PM BOILERMAKER PIPE FITTER 07/02/2023 4 Morphine 15 mg, Bupivacaine 10 mg/mL INTRATHECAL 15 mg 2 (two) times a day. 04/05/2022 4 sildenafil (REVATIO) 20 mg tablet Take 1 tablet (20 mg total) by mouth 3 (three) times a day. 90 tablet 3 07/30/2023 4 documented as of this encounter Plan of Treatment Upcoming Encounters Date Type Department Care Team (Latest Contact Info) Description 07/08/2024 8:15 AM BOILERMAKER PIPE FITTER Clinical Communication Virtual Review in [place] [address] [place] [phone] 07/09/2024 3:00 PM BOILERMAKER PIPE FITTER Office Visit [facility] in [place], [place] [address] [place] [phone] Eliana Vargas M.D. [address] [place] [phone] 07/16/2024 8:30 AM BOILERMAKER PIPE FITTER Appointment Department of Laboratory Medicine and Pathology, [facility] in [place], [place] [address] [place] [phone] Matthew Mayes M.D. [address] [place] [phone] 07/16/2024 11:00 AM BOILERMAKER PIPE FITTER Clinical Support Department of Nutrition and Diabetes Education in [place], [place] [address] [place] [phone] Matthew Mayes M.D. [address] [place] [phone] Karmen Zambrano, EVIEN, LD [address] [place] [phone] 07/16/2024 12:30 PM BOILERMAKER PIPE FITTER Appointment Department of Cardiac Rehabilitation in [place], [place] [address] [place] [phone] Matthew Mayes M.D. [address] [place] [phone] 07/16/2024 2:00 PM BOILERMAKER PIPE FITTER Office Visit Department of Cardiovascular Medicine in [place], [place] [address] [place] [phone] Matthew Mayes M.D. [address] [place] [phone] documented as of this encounter Procedures Procedure Name Priority Date/Time Associated Diagnosis Comments MORPHOLOGY EVALUATION Routine 03/09/2024 11:32 AM CDT MANUAL DIFFERENTIAL, B Routine 03/09/2024 11:32 AM CDT CBC WITH DIFFERENTIAL, B Routine 03/09/2024 11:32 AM CDT Myelofibrosis Primary (HCC) documented in this encounter Results * (ABNORMAL) Morphology Evaluation (03/09/2024 11:32 AM CDT) RBC Morphology See Specific Findings 03/09/2024 12:46 PM CDT [facility] PLT Morphology Normal 03/09/2024 12:46 PM CDT [facility] PLT Estimate Increased(A ) Adequate 03/09/2024 12:46 PM CDT [facility] Anisocytosis Moderate(A) 03/09/2024 12:46 PM CDT [facility] Basophilic Stippling Slight(A) 03/09/2024 12:46 PM CDT [facility] Dimorphic RBC Present(A) Not Seen 03/09/2024 12:46 PM CDT [facility] Elliptocytes Slight(A) Not Seen 03/09/2024 12:46 PM CDT [facility] Wat[place] Glenvil Bodies Present(A) Not Seen 03/09/2024 12:46 PM CDT [facility] Hypochromia Moderate(A) Not Seen 03/09/2024 12:46 PM CDT [facility] Macrocytosis Moderate(A) Not Seen 03/09/2024 12:46 PM CDT [facility] Microcytosis Slight(A) Not Seen 03/09/2024 12:46 PM CDT [facility] Poikilocytosis Moderate(A) Not Seen 12:46 PM CDT [facility] Blood 03/09/2024 11:3 2 AM CDT 03/09/2024 11:34 AM CDT us Janusz Ardon LAB BLOOD ADD-ON Final R esult [facility] [address] [place] [address], [facility] in [place] [address] [place] [address] * (ABNORMAL) Manual Differential, Blood (03/09/2024 11:32 AM CDT) Segmented Neutrophils 72 50 - 75 % 03/11/2024 12:18 PM CDT [facility] Comment: REVISED RESULTS ----PREVIOUSLY REPORTED ---- 31, Flagged as: Abnormal_Low (Reported 03/09/2024 12:46) Lymphocytes % 6(L) 18 - 42 % 03/09/2024 12:46 PM CDT [facility] Monocytes 3 2 - 11 % 03/11/2024 12:18 PM CDT [facility] Comment: REVISED RESULTS ----PREVIOUSLY REPORTED ---- 57, Flagged as: Abnormal_High (Reported 03/09/2024 12:46) Eosinophils 3 1 - 3 % 03/09/2024 12:46 PM CDT [facility] Basophils 1 0 - 2 % 03/11/2024 12:18 PM CDT [facility] Comment: REVISED RESULTS ----PREVIOUSLY REPORTED ---- 3, Flagged as: Abnormal_High (Reported 03/09/2024 12:46) Metamyelocytes 4(H) <1 % 03/11/2024 12:18 PM CDT [facility] Myelocytes 9(H) <0.5 % 03/11/2024 12:18 PM CDT [facility] Promyelocytes 1(H) <1 % 03/11/2024 12:18 PM CDT [facility] Blasts 1(H) <1 % 03/11/2024 12:18 PM CDT [facility] Nucleated RBC 180 /100 WBC 03/11/2024 12:18 PM CDT [facility] Comment: REVISED RESULTS ----PREVIOUSLY REPORTED ---- 238, Flagged as: N/A (Reported 03/09/2024 12:46) Manual Absolute Neutrophil Count 12.10(H) 1.56 - 6.45 x10(9)/L 03/11/2024 12:18 PM CDT [facility] Comment: REVISED RESULTS ----ADDITIONAL INFORMATION---- The manual absolute neutrophil count is derived from a manual differential count and therefore is not exactly comparable to the automated absolute neutrophil count. ----PREVIOUSLY REPORTED ---- 14.54, Flagged as: Abnormal_High (Reported 03/09/2024 12:46) Blood 03/09/2024 11:3 2 AM CDT 03/09/2024 11:34 AM CDT Janusz Ardon LAB BLOOD ADD-ON Edited Result - Final [facility] [address] [place] [address], [facility] in [place] [address] [place] [address] * (ABNORMAL) CBC with Differential, Blood (03/09/2024 11:32 AM CDT) Hemoglobin 8.1(L) 11.6 - 15.0 g/dL 03/09/2024 12:34 PM CDT [facility] Hematocrit 27.0(L) 35.5 - 44.9 % 03/09/2024 12:45 PM CDT [facility] Erythrocytes 2.67(L) 3.92 - 5.13 x10(12)/ L 03/09/2024 12:45 PM CDT [facility] MCV 101.1(H) 78.2 - 97.9 fL 03/09/2024 12:45 PM CDT [facility] RBC Distrib Width 33.8(H) 12.2 - 16.1 % 03/09/2024 12:45 PM CDT [facility] Platelet Count 615(H) 157 - 371 x10(9)/L 03/09/2024 12:45 PM CDT [facility] Leukocytes 16.8(H) 3.4 - 9.6 x10(9)/L 03/11/2024 12:18 PM CDT [facility] Comment: REVISED RESULTS ----PREVIOUSLY REPORTED ---- 46.9, Flagged as: Abnormal_High (Reported 03/09/2024 12:45) Neutrophils See manual differential 1.56 - 6.45 x10(9)/L 03/09/2024 12:45 PM CDT [facility] Blood (Blood, Venous) 03/09/2024 11:32 AM CDT 03/09/2024 11:34 AM CDT Janusz Ardon LAB BLOOD ADD-ON Edited Result - Final [facility] [address] [place] [address], [facility] in [place] [address] [place] [phone] documented in this encounter Visit Diagnoses Diagnosis Myelofibrosis Primary (HCC) documented in this encounter Additional Health Concerns Infection Onset Date Last Indicated Resolved Time Protective Environment 01/22/2023 01/22/202305/23 5:22 AM BOILERMAKER PIPE FITTER documented as of this encounter Care Teams Book Mender Relationship Specialty Start Date End Date Elsewhere, Pcp PCP - General Internal Medicine 01/30/24 documented as of this encounter
--- OUTSIDE RECORDS SUMMARY | 2024-06-07 12:31 | XMS_ITS | Encounter Summary ---
Author Organization [facility] Address [address] [place] [address] Care Team Providers Care Switchboard Mechanic Name Role Phone Elsewhere, Pcp Primary Care Provider Unavailabl e Reason for Visit * Reason Onset Date Comments Lab Monitoring 02/05/2024 Sildenafil Encounter Details Date Type Department Care Team (Latest Contact Info) Description 02/05/2024 Clinical Communication Department of Cardiovascular Medicine in [place], [place] [address] [place] [phone] Aide Mueller, RZahraaNZahraa [address] [place] [phone] Lab Monitoring (Sildenafil ) Social History Tobacco Use Types Packs/Day Years [...] Sex Assigned at Female 07/24/2021 11:03 AM IMPLEMENTATION LEAD Legal Sex Female 9:12 PM IMPLEMENTATION LEAD Gender Identity Female 07/24/2021 11:03 AM IMPLEMENTATION LEAD Sexual Orientation Straight 07/24/2021 11 :03 AM IMPLEMENTATION LEAD documented as of this encounter Plan of Treatment Upcoming Encounters Date Type Department Care Team (Latest Contact Info) Description 07/08/2024 8:15 AM IMPLEMENTATION LEAD Clinical Communication Virtual Review in [place], [place] 200 [place] [address] 07/09/2024 3:00 PM IMPLEMENTATION LEAD Office Visit [facility] in [place], [place] [address] [place] [phone] Eliana Vargas M.D. [address] [place] [phone] 07/16/2024 8:30 AM IMPLEMENTATION LEAD Appointment Department of Laboratory Medicine and Pathology, [facility], in [address] [phone] Matthew Mayes M.D. [address] [place] [phone] 07/16/2024 11:00 AM IMPLEMENTATION LEAD Clinical Support Department of Nutrition and Diabetes Education in [place], [place] [address] [place] [phone] Matthew Mayes M.D. [address] [place] [phone] Karmen Zambrano, RDN, LD [address] [place] [phone] 07/16/2024 12:30 PM IMPLEMENTATION LEAD Appointment Department of Cardiac Rehabilitation in [place], [place] [address] [place] [phone] Matthew Mayes M.D. [address] [place] [phone] 07/16/2024 2:00 PM IMPLEMENTATION LEAD Office Visit Department of Cardiovascular Medicine in [address] [phone] Matthew Mayes M.D. [address] [place] [phone] documented as of this encounter Visit Diagnoses Not on filedocumented in this encounter Additional Health Concerns Infection Onset Date Last Indicated Resolved Time Protective Environment 01/22/2023 01/22/202305/23 5:22 AM IMPLEMENTATION LEAD documented as of this encounter Care Teams Switchboard Mechanic Relationship Specialty Start Date End Date Elsewhere, Pcp PCP - General Internal Medicine 01/30/24 documented as of this encounter
--- OUTSIDE RECORDS SUMMARY | 2024-06-07 12:31 | XMS_ITS | Encounter Summary ---
Author Organization [facility] Address [address] [place] [address] Care Team Providers Care Water Maintenance Supervisor Name Role Phone Elsewhere, Pcp Primary Care Provider Unavailabl e Encounter Details Date Type Department Care Team (Late st Contact Info) Description 02/19/2024 Clinical Communication Division of Hematology in [place], [place] [address] [place] [phone] Janusz Govea M.B.B.S. [address] [place] [phone] Social History Tobacco Use Types Packs/Day Years [...] Sex Assigned at Female 07/24/2021 11:03 AM AUDIO VISUAL COLLECTIONS COORDINATOR Legal Sex Female 9:12 PM AUDIO VISUAL COLLECTIONS COORDINATOR Gender Identity Female 07/24/2021 11:03 AM AUDIO VISUAL COLLECTIONS COORDINATOR Sexual Orientation Straight 07/24/2021 11 :03 AM AUDIO VISUAL COLLECTIONS COORDINATOR documented as of this encounter Miscellaneous Notes * Telephone Encounter - Dena Junior R.N. - 02/19/2024 1:29 PM CDT Received a call from Elvia NARAYAN at [facility]. She said that on arrival patient was85% on room air and she thought with transfusion that patient would improve. Patient is at the end of transfusion and is in the upper 80s and can reach the low 90s with deep breathing. Her lungs are clear to auscultation and Elvia RN would like Dr. Govea to write for a diuretic. She also notes th at over the course of time that Jennifer's legs have increased swelling and her weight has increased. I directed Elvia to have Jennifer sent to the nearest ER for evaluation as there may be may reasons for the low oxygen sat and she needed to be evaluated. She states that she doesn't know if Jennifer will do that and again pushed for a diuretic. I again noted that Jennifer needed to go to the ER for evaluation. As she was just started on Luspatercept there is a risk for pulmonary embolus. Elvia states Jennifer wants to know why Jennifer can't come there for Luspatercept injects and why she has to go to [place] or [place]. She states that if we send over a referral letter they will have their nurse practitioner write for it there. documented in this encounter Plan of Treatment Upcoming Encounters Date Type Department Care Team (Latest Contact Info) Description 07/08/2024 8:15 AM AUDIO VISUAL COLLECTIONS COORDINATOR Clinical Communication Virtual Review in [address] [phone] 07/09/2024 3:00 PM AUDIO VISUAL COLLECTIONS COORDINATOR Office Visit [facility] in [address] [phone] Eliana Vargas M.D. [address] [place] [phone] 07/16/2024 8:30 AM AUDIO VISUAL COLLECTIONS COORDINATOR Appointment Department of Laboratory Medicine and Pathology, [facility], in [address] [phone] Matthew Mayes M.D. [address] [place] [phone] 07/16/2024 11:00 AM AUDIO VISUAL COLLECTIONS COORDINATOR Clinical Support Department of Nutrition and Diabetes Education in [place], [place] [address] [place] [address] Matthew Mayes M.D. [address] [place] [phone] Karmen Zambrano, JOSE, LD [address] [place] [phone] 07/16/2024 12:30 PM AUDIO VISUAL COLLECTIONS COORDINATOR Appointment Department of Cardiac Rehabilitation in [place], [place] [address] [place] [phone] Matthew Mayes M.D. [address] [place] [phone] 07/16/2024 2:00 PM AUDIO VISUAL COLLECTIONS COORDINATOR Office Visit Department of Cardiovascular Medicine in [place], [place] [address] [place] [address] Matthew Mayes M.D. [address] [place] [phone] documented as of this encounter Visit Diagnoses Not on filedocumented in this encounter Additional Health Concerns Infection Onset Date Last Indicated Resolved Time Protective Environment 01/22/2023 01/22/202305/23 5:22 AM AUDIO VISUAL COLLECTIONS COORDINATOR documented as of this encounter Care Teams Water Maintenance Supervisor Relationship Specialty Start Date End Date Elsewhere, Pcp PCP - General Internal Medicine 01/30/24 documented as of this encounter
--- OUTSIDE RECORDS SUMMARY | 2024-06-07 12:31 | XMS_ITS | Encounter Summary ---
Author Organization [facility] Address [address] [place] [address] Care Team Providers Care Visual Effects Editor Name Role Phone Elsewhere, Pcp Primary Care Provider Unavailabl e Reason for Visit * Reason Onset Date Comments Nose bleeds 02/23/2024 Encounter Details Date Type Department Care Team (Late st Contact Info) Description 02/23/2024 Clinical Communication Division of Hematology in [place], [place] [address] [place] [phone] Janusz Govea M.B.B.S. [address] [place] [phone] Nose bleeds Social History Tobacco Use Types Packs/Day Years [...] Assigned at Female 07/24/2021 11:03 AM SENIOR ADVOCATE Legal Sex Female 9:12 PM SENIOR ADVOCATE Gender Identity Female 07/24/2021 11:03 AM SENIOR ADVOCATE Sexual Orientation Straight 07/24/2021 11 :03 AM SENIOR ADVOCATE documented as of this encounter Plan of Treatment Upcoming Encounters Date Type Department Care Team (Latest Contact Info) Description 07/08/2024 8:15 AM SENIOR ADVOCATE Clinical Communication Virtual Review in [place], [place] 200 [place] [address] 07/09/2024 3:00 PM SENIOR ADVOCATE Office Visit [facility] in [place], [place] [address] [place] [phone] Eliana Vargas M.D. [address] [place] [phone] 07/16/2024 8:30 AM SENIOR ADVOCATE Appointment Department of Laboratory Medicine and Pathology, [facility] in [place], [place] [address] [place] [phone] Matthew Mayes M.D. [address] [place] [phone] 07/16/2024 11:00 AM SENIOR ADVOCATE Clinical Support Department of Nutrition and Diabetes Education in [place], [place] [address] [place] [phone] Matthew Mayes M.D. [address] [place] [phone] Karmen Zambrano, EVIEN, LD [address] [place] [phone] 07/16/2024 12:30 PM SENIOR ADVOCATE Appointment Department of Cardiac Rehabilitation in [address] [phone] Matthew Mayes M.D. [address] [place] [phone] 07/16/2024 2:00 PM SENIOR ADVOCATE Office Visit Department of Cardiovascular Medicine in [address] [phone] Matthew Mayes M.D. [address] [place] [address] [place] [phone] documented as of this encounter Visit Diagnoses Not on filedocumented in this encounter Additional Health Concerns Infection Onset Date Last Indicated Resolved Time Protective Environment 01/22/2023 01/22/202305/23 5:22 AM SENIOR ADVOCATE documented as of this encounter Care Teams Visual Effects Editor Relationship Specialty Start Date End Date Elsewhere, Pcp PCP - General Internal Medicine 01/30/24 documented as of this encounter
--- OUTSIDE RECORDS SUMMARY | 2024-06-07 12:31 | XMS_ITS | Encounter Summary ---
Author Organization [facility] Address [address] [place] [address] Care Team Providers Care Practice Nurse Name Role Phone Elsewhere, Pcp Primary Care Provider Unavailabl e Reason for Visit * Reason Onset Date Comments External Lab Entry 02/18/2024 Encounter Details Date Type Department Care Team (Latest Contact Info) Description 02/18/2024 Clinical Communication Division of Hematology in [place], [place] [address] [place] [phone] Janusz Govea M.B.BZahraaS. [address] [place] [phone] External Lab Entry Social History Tobacco Use [...] Sex Assigned at Female 07/24/2021 11:03 AM BRAKE MECHANIC Legal Sex Female 9:12 PM BRAKE MECHANIC Gender Identity Female 07/24/2021 11:03 AM BRAKE MECHANIC Sexual Orientation Straight 07/24/2021 11 :03 AM BRAKE MECHANIC documented as of this encounter Miscellaneous Notes * Telephone Encounter - Jennifer Peralta - 02/18/2024 12:00 PM CDT Outside labs collected on 02/18/2024 have been received. The fax has been scanned into the patient record via [employer], and the CBC results are as noted below. Hemoglobin: 7.2 Hematocrit: 24.5 WBC: 119.32 ANC: 23.60 Platelets: 648.0 Please note: Are there additional labs reported on the outside report? No documented in this encounter Plan of Treatment Upcoming Encounters Date Type Department Care Team (Latest Contact Info) Description 07/08/2024 8:15 AM BRAKE MECHANIC Clinical Communication Virtual Review in [address] [phone] 07/09/2024 3:00 PM BRAKE MECHANIC Office Visit [facility] in [address] [phone] Eliana Vargas M.D. [address] [place] [phone] 07/16/2024 8:30 AM BRAKE MECHANIC Appointment Department of Laboratory Medicine and Pathology, [facility], in [address] [phone] Matthew Mayes M.D. [address] [place] [phone] 07/16/2024 11:00 AM BRAKE MECHANIC Clinical Support Department of Nutrition and Diabetes Education in [address] [phone] Matthew Mayes M.D. [address] [place] [phone] Karmen Zambrano, EVIEN, LD [address] [place] [phone] 07/16/2024 12:30 PM BRAKE MECHANIC Appointment Department of Cardiac Rehabilitation in [place], [place] [address] [place] [address] Matthew Mayes M.D. [address] [place] [phone] 07/16/2024 2:00 PM BRAKE MECHANIC Office Visit Department of Cardiovascular Medicine in [place], [place] [address] [place] [address] Matthew Mayes M.D. [address] [place] [phone] documented as of this encounter Visit Diagnoses Not on filedocumented in this encounter Additional Health Concerns Infection Onset Date Last Indicated Resolved Time Protective Environment 01/22/2023 01/22/202305/23 5:22 AM BRAKE MECHANIC documented as of this encounter Care Teams Practice Nurse Relationship Specialty Start Date End Date Elsewhere, Pcp PCP - General Internal Medicine 01/30/24 documented as of this encounter
--- OUTSIDE RECORDS SUMMARY | 2024-06-07 12:31 | XMS_ITS | Encounter Summary ---
Author Organization [facility] Address [address] [place] [address] Care Team Providers Care Practice Billing Associate Name Role Phone Elsewhere, Pcp Primary Care Provider Unavailabl e Reason for Visit * Reason Comments Injections * Episode Based Medications (Routine) - Authorized Specialty Diagnoses / Procedures Referred By Contac t Referred To Contact Diagnoses Myelofibrosis Primary (HCC) Janusz Govea M.B.B.S. [address] [place] [phone] Phone: tel: fax: Division of Hematology in [place], [place] [address] [place] [phone] Phone: tel: Referral ID Status Reason Start Date Expiration Date V isits Requested Visits Authorized [id number] Authorized 02/10/2024 02/09/2026 99 99 Encounter Details Date Type Department Care Team (Late st Contact Info) Description 03/09/2024 12:30 PM CDT Infusion Department of Infusion Therapy in [address] [phone] Janusz Govea M.B.B.S. [address] [place] [phone] Myelofibrosis Primary (HCC) (Primary Dx) Social History [...] Sex Assigned at Female 07/24/2021 11:03 AM DEVELOPER AUTOMATIC Legal Sex Female 9:12 PM DEVELOPER AUTOMATIC Gender Identity Female 07/24/2021 11:03 AM DEVELOPER AUTOMATIC Sexual Orientation Straight 07/24/2021 11 :03 AM DEVELOPER AUTOMATIC documented as of this encounter Last Filed Vital Signs Vital Sign Reading Time Taken Comments Blood Pressure 114/68 03/09/2024 12:44 PM CDT Pulse 105 03/09/2024 12:44 PM CDT Temperature 36.4 C (97.5 F) 03/09/2024 12:44 PM CDT Respiratory Rate 18 03/09/2024 12:44 PM CDT Oxygen Saturation 92% 03/09/2024 12:44 PM CDT Inhaled Oxygen Concentration - - Weight 114 kg (251 lb 6.4 oz) 03/09/2024 12:44 P M CDT Height - - Body Mass Index 38.91 02/03/2024 10:44 AM CDT documented in this encounter Plan of Treatment Upcoming Encounters Date Type Department Care Team (Latest Contact Info) Description 07/08/2024 8:15 AM DEVELOPER AUTOMATIC Clinical Communication Virtual Review in [place], [place] 200 [place] [phone] 07/09/2024 3:00 PM DEVELOPER AUTOMATIC Office Visit [facility] in [place], [place] [address] [place] [phone] Eliana Vargas M.D. [address] [place] [phone] 07/16/2024 8:30 AM DEVELOPER AUTOMATIC Appointment Department of Laboratory Medicine and Pathology, [facility], in [place], [place] [address] [place] [phone] Matthew Mayes M.D. [address] [place] [phone] 07/16/2024 11:00 AM DEVELOPER AUTOMATIC Clinical Support Department of Nutrition and Diabetes Education in [place], [place] [address] [place] [phone] Matthew Mayes M.D. [address] [place] [phone] Karmen Zambrano, RDN, LD [address] [place] [phone] 07/16/2024 12:30 PM DEVELOPER AUTOMATIC Appointment Department of Cardiac Rehabilitation in [place], [place] [address] [place] [phone] Matthew Mayes M.D. [address] [place] [phone] 07/16/2024 2:00 PM DEVELOPER AUTOMATIC Office Visit Department of Cardiovascular Medicine in [address] [phone] Matthew Mayes M.D. [address] [place] [phone] documented as of this encounter Visit Diagnoses Diagnosis Myelofibrosis Primary (HCC)- Primary documented in this encounter Administered Medications Inactive Administered Medications - up to 3 most recent administrations Medication Order MAR Action Action Date Dose Rate Site luspatercept-aamt injection 125 mg (ReblozyL) 125 mg (rounded from 118 mg = 1 mg/kg 118 kg Treatment plan Measured weight), subcutaneous, Once, On Fri03/09/24 at 1315, For 1 doseIndications:Myelofibrosis Primary (HCC) Given 03/09/2024 1:40 PM CDT 125 mg Othe r documented in this encounter Additional Health Concerns Infection Onset Date Last Indicated Resolved Time Protective Environment 01/22/2023 01/22/202305/23 5:22 AM DEVELOPER AUTOMATIC documented as of this encounter Care Teams Practice Billing Associate Relationship Specialty Start Date End Date Elsewhere, Pcp PCP - General Internal Medicine 01/30/24 documented as of this encounter
--- OUTSIDE RECORDS SUMMARY | 2024-06-07 12:31 | XMS_ITS | Encounter Summary ---
Author Organization [facility] Address [address] [place] [address] Care Team Providers Care Swatch Folder Name Role Phone Elsewhere, Pcp Primary Care Provider Unavailabl e Reason for Visit * Reason Onset Date Comments 02/12 cmd 02/13/2024 Encounter Details Date Type Department Care Team (Late st Contact Info) Description 02/13/2024 Clinical Communication Division of Hematology in [place], [place] [address] [place] [phone] Janusz Govea M.B.B.S. [address] [place] [phone] 02/12 cmd Social History Tobacco Use Types Packs/Day Years [...] Sex Assigned at Female 07/24/2021 11:03 AM CONTRACT SPECIALIST Legal Sex Female 9:12 PM CONTRACT SPECIALIST Gender Identity Female 07/24/2021 11:03 AM CONTRACT SPECIALIST Sexual Orientation Straight 07/24/2021 11 :03 AM CONTRACT SPECIALIST documented as of this encounter Plan of Treatment Upcoming Encounters Date Type Department Care Team (Latest Contact Info) Description 07/08/2024 8:15 AM CONTRACT SPECIALIST Clinical Communication Virtual Review in [place], [place] 200 [place] [phone] 07/09/2024 3:00 PM CONTRACT SPECIALIST Office Visit [facility] in [place], [place] [address] [place] [phone] Eliana Vargas M.D. [address] [place] [phone] 07/16/2024 8:30 AM CONTRACT SPECIALIST Appointment Department of Laboratory Medicine and Pathology, [facility] in [place], [place] [address] [place] [phone] Matthew Mayes M.D. [address] [place] [phone] 07/16/2024 11:00 AM CONTRACT SPECIALIST Clinical Support Department of Nutrition and Diabetes Education in [place], [place] [address] [place] [phone] Matthew Mayes M.D. [address] [place] [phone] Karmen Zambrano, RDN, LD [address] [place] [phone] 07/16/2024 12:30 PM CONTRACT SPECIALIST Appointment Department of Cardiac Rehabilitation in [place], [place] [address] [place] [phone] Matthew Mayes M.D. [address] [place] [phone] 07/16/2024 2:00 PM CONTRACT SPECIALIST Office Visit Department of Cardiovascular Medicine in [place], [place] [address] [place] [phone] Matthew Mayes M.D. [address] [place] [phone] documented as of this encounter Visit Diagnoses Not on filedocumented in this encounter Additional Health Concerns Infection Onset Date Last Indicated Resolved Time Protective Environment 01/22/2023 01/22/202305/23 5:22 AM CONTRACT SPECIALIST documented as of this encounter Care Teams Swatch Folder Relationship Specialty Start Date End Date Elsewhere, Pcp PCP - General Internal Medicine 01/30/24 documented as of this encounter
--- OUTSIDE RECORDS SUMMARY | 2024-06-07 12:31 | XMS_ITS | Encounter Summary ---
Author Organization [facility] Address [address] [place] [address] Care Team Providers Care Freelance Data Entry Name Role Phone Elsewhere, Pcp Primary Care Provider Unavailabl e Encounter Details Date Type Department Care Team ( Contact Info) Description 02/10/2024 Clinical Communication Division of Hematology in [place], [place] [address] [place] [phone] Janusz Govea M.B.B.S. [address] [place] [phone] Social History Tobacco Use Types Packs/Day Years [...] Sex Assigned at Female 07/24/2021 11:03 AM CLOCK REPAIR TECHNICIAN Legal Sex Female 9:12 PM CLOCK REPAIR TECHNICIAN Gender Identity Female 07/24/2021 11:03 AM CLOCK REPAIR TECHNICIAN Sexual Orientation Straight 07/24/2021 11 :03 AM CLOCK REPAIR TECHNICIAN documented as of this encounter Plan of Treatment Upcoming Encounters Date Type Department Care Team (Latest Contact Info) Description 07/08/2024 8:15 AM CLOCK REPAIR TECHNICIAN Clinical Communication Virtual Review in [place], [place] 200 [place] [phone] 07/09/2024 3:00 PM CLOCK REPAIR TECHNICIAN Office Visit [facility] in [place], [place] [address] [place] [phone] Eliana Vargas M.D. [address] [place] [phone] 07/16/2024 8:30 AM CLOCK REPAIR TECHNICIAN Appointment Department of Laboratory Medicine and Pathology, [facility], in [place], [place] [address] [place] [phone] Matthew Mayes M.D. [address] [place] [phone] 07/16/2024 11:00 AM CLOCK REPAIR TECHNICIAN Clinical Support Department of Nutrition and Diabetes Education in [place], [place] [address] [place] [phone] Matthew Mayes M.D. [address] [place] [phone] Karmen Zambrano, EVIEN, LD [address] [place] [phone] 07/16/2024 12:30 PM CLOCK REPAIR TECHNICIAN Appointment Department of Cardiac Rehabilitation in [place], [place] [address] [place] [phone] Matthew Mayes M.D. [address] [place] [phone] 07/16/2024 2:00 PM CLOCK REPAIR TECHNICIAN Office Visit Department of Cardiovascular Medicine in [address] [phone] Matthew Mayes M.D. [address] [place] [phone] documented as of this encounter Visit Diagnoses Not on filedocumented in this encounter Additional Health Concerns Infection Onset Date Last Indicated Resolved Time Protective Environment 01/22/2023 01/22/202305/23 5:22 AM CLOCK REPAIR TECHNICIAN documented as of this encounter Care Teams Freelance Data Entry Relationship Specialty Start Date End Date Elsewhere, Pcp PCP - General Internal Medicine 01/30/24 documented as of this encounter
--- OUTSIDE RECORDS SUMMARY | 2024-06-07 12:31 | XMS_ITS | Encounter Summary ---
Author Organization [facility] Address [address] [place] [address] Care Team Providers Care Tax Intern Name Role Phone Elsewhere, Pcp Primary Care Provider Unavailabl e Reason for Visit * Reason Onset Date Comments Med Refill 03/04/2024 Encounter Details Date Type Department Care Team (Late st Contact Info) Description 03/04/2024 Clinical Communication Division of Hematology in [place], [place] [address] [place] [phone] Janusz Govea M.B.B.S. [address] [place] [phone] Med Refill Social History Tobacco Use Types [...] Sex Assigned at Female 07/24/2021 11:03 AM DISTANCE EDUCATION DIRECTOR Legal Sex Female 9:12 PM DISTANCE EDUCATION DIRECTOR Gender Identity Female 07/24/2021 11:03 AM DISTANCE EDUCATION DIRECTOR Sexual Orientation Straight 07/24/2021 11 :03 AM DISTANCE EDUCATION DIRECTOR documented as of this encounter Miscellaneous Notes * Telephone Encounter - Jolene Manuel - 03/05/2024 10:04 AM CDT Nurse review: Unable to pend medication to provider: Discrepancy. Directions on refill request doesnot match the current med list. Name of Medication: Torsemide Strength: 20 mg Frequency: med list: 1 tab daily/ New RX: 2 tabs BID Last seen: 01-22-24 [id number] [id number] [facility] [id number] * Telephone Encounter - Jocelyne Lang - 03/04/2024 11:52 AM CDT Outside labs collected on 03/04/2024 have been received. The fax has been scanned into the patient record via RealPage, and the CBC results are as noted below. Hemoglobin: 8.4 Hematocrit: 27.8 WBC: 127.25 ANC: 14.9 Platelets: 670 Please note: Are there additional labs reported on the outside report? No documented in this encounter Plan of Treatment Upcoming Encounters Date Type Department Care Team (Latest Contact Info) Description 07/08/2024 8:15 AM DISTANCE EDUCATION DIRECTOR Clinical Communication Virtual Review in [place], [place] 200 [place] [phone] 07/09/2024 3:00 PM DISTANCE EDUCATION DIRECTOR Office Visit [facility] in [place], [place] [address] [place] [phone] Eliana Vargas M.D. [address] [place] [phone] 07/16/2024 8:30 AM DISTANCE EDUCATION DIRECTOR Appointment Department of Laboratory Medicine and Pathology, [facility], in [place], [place] [address] [place] [phone] Matthew Mayes M.D. [address] [place] [phone] 07/16/2024 11:00 AM DISTANCE EDUCATION DIRECTOR Clinical Support Department of Nutrition and Diabetes Education in [place], [place] [address] [place] [address] Matthew Mayes M.D. [address] [place] [phone] Karmen Zambrano, JOSE, LD [address] [place] [phone] 07/16/2024 12:30 PM DISTANCE EDUCATION DIRECTOR Appointment Department of Cardiac Rehabilitation in [place], [place] [address] [place] [phone] Matthew Mayes M.D. [address] [place] [phone] 07/16/2024 2:00 PM DISTANCE EDUCATION DIRECTOR Office Visit Department of Cardiovascular Medicine in [place], [place] [address] [place] [phone] Matthew Mayes M.D. [address] [place] [phone] documented as of this encounter Procedures Procedure Name Priority Date/Time Associated Diagnosis Comments HEMATOLOGY/ONCOLOGY - BLOOD, EXTERNAL LAB RESULTS Routine 03/04/2024 9:45 AM CDT documented in this encounter Results * Hematology/Oncology - Blood, External Lab Results (03/04/2024 9:45 AM CDT) EXT Hemoglobin 8.4 [facility]) EXT Hematocrit 27.8 [facility]) EXT RBC 2.77 [facility] EXT MCV 100 [facility] EXT WBC 127.25 [facility] EXT Absolute Neutrophil Count 14.9 [facility]) EXT Lymphs Absolute 15.4 [facility]) EXT Monocytes Absolute 10.7 [facility] EXT Platelet Count 670 [facility]) Blood 03/04/2024 9:45 AM CDT us Historical Provider LAB BLOOD NON ADD-ON Final R esult [facility]) [address] [phone] documented in this encounter Visit Diagnoses Not on filedocumented in this encounter Additional Health Concerns Infection Onset Date Last Indicated Resolved Time Protective Environment 01/22/2023 01/22/202305/23 5:22 AM DISTANCE EDUCATION DIRECTOR documented as of this encounter Care Teams Tax Intern Relationship Specialty Start Date End Date Elsewhere, Pcp PCP - General Internal Medicine 01/30/24 documented as of this encounter
--- OUTSIDE RECORDS SUMMARY | 2024-06-07 12:31 | XMS_ITS | Encounter Summary ---
Author Organization [facility] Address [address] [place] [address] Care Team Providers Care Wooden Furniture Polisher Name Role Phone Elsewhere, Pcp Primary Care Provider Unavailabl e Reason for Visit * Reason Onset Date Comments Chemo Education 02/1502/13/2024 Encounter Details Date Type Department Care Team (Latest Contact Info) Description 02/13/2024 Clinical Communication Division of Hematology in [place], [place] [address] [place] [phone] Janusz Govea M.B.B.S. [address] [place] [phone] Chemo Education 02/15 Social History Tobacco Use Types Packs/Day Years [...] Sex Assigned at Female 07/24/2021 11:03 AM CABIN MAN Legal Sex Female 9:12 PM CABIN MAN Gender Identity Female 07/24/2021 11:03 AM CABIN MAN Sexual Orientation Straight 07/24/2021 11 :03 AM CABIN MAN documented as of this encounter Plan of Treatment Upcoming Encounters Date Type Department Care Team (Latest Contact Info) Description 07/08/2024 8:15 AM CABIN MAN Clinical Communication Virtual Review in [place], [place] 200 [place] [phone] 07/09/2024 3:00 PM CABIN MAN Office Visit [facility] in [place], [place] [address] [place] [phone] Eliana Vargas M.D. [address] [place] [phone] 07/16/2024 8:30 AM CABIN MAN Appointment Department of Laboratory Medicine and Pathology, [facility] in [address] [phone] Matthew Mayes M.D. [address] [place] [phone] 07/16/2024 11:00 AM CABIN MAN Clinical Support Department of Nutrition and Diabetes Education in [address] [phone] Matthew Mayes M.D. [address] [place] [phone] Karmen Zambrano, RDN, LD [address] [place] [phone] 07/16/2024 12:30 PM CABIN MAN Appointment Department of Cardiac Rehabilitation in [place], [place] [address] [place] [phone] Matthew Mayes M.D. [address] [place] [phone] 07/16/2024 2:00 PM CABIN MAN Office Visit Department of Cardiovascular Medicine in [address] [phone] Matthew Mayes M.D. [address] [place] [phone] documented as of this encounter Visit Diagnoses Not on filedocumented in this encounter Additional Health Concerns Infection Onset Date Last Indicated Resolved Time Protective Environment 01/22/2023 01/22/202305/23 5:22 AM CABIN MAN documented as of this encounter Care Teams Wooden Furniture Polisher Relationship Specialty Start Date End Date Elsewhere, Pcp PCP - General Internal Medicine 01/30/24 documented as of this encounter
[2024-06-07 12:40] LABS: Chloride* 100 mmol/L (96-114); Potassium* 3.9 mmol/L (3.6-5.1); Sodium* 140 mmol/L (135-149)
[2024-06-07 12:43] LABS: Anion Gap 3 mEq/L (7-15); Carbon Dioxide* 37 mmol/L (20-32); Estimated Glomerular Filt Rate 66 ml/min
[2024-06-07 12:44] LABS: Blood Urea Nitrogen* 42 mg/dL (7-30); Calcium* 8.9 mg/dL (8.4-10.6); Glucose* 99 mg/dL (60-115)
== END 2024-06-07 12:25 | disposition home or self-care (01) ==
LOC: NPINS 12:24
PROVIDERS: PCP Internal Medicine; Visit Provider Internal Medicine Cardiovascular Disease
DX: I27.0 Primary pulmonary hypertension (principal); D75.81 Myelofibrosis; R06.09 Other forms of dyspnea; Z79.899 Other long term (current) drug therapy
CPT/HCPCS: 80048

== ENCOUNTER 2024-07-21 11:37 | Emergency (ER) | payer MEDICARE, MEDICAID, SELFPAY ==
[2024-07-21] VITALS (43 sets, daily range): BP systolic 100–114; BP diastolic 34–72; PULSE 76–104; RESP 14–24; TEMP 36.3–36.9; O2SAT 89–98; BMI 47.0
--- OUTSIDE RECORDS SUMMARY | 2024-07-21 11:40 | XMS_ITS | Referral Summary ---
Author Organization [facility] Address [address] [place] [address] Care Team Providers Care Cracking Machine Operator Name Role Phone No Ref-Primary, Physician Primary [...] sodium-potassiu m bicarbonate-cit devi acid (VASYL-SELTZER GOLD) [phone] MG TBEF solu-tab Take 1 tablet by [...] on file Legal Sex Female 4:16 AM SCREEN PRINTING EQUIPMENT SETTER Gender Identity Not on file Sexual Orientation Not on file Last Filed Vital Signs Vital Sign Reading Time Taken Comments Blood Pressure 118/72 05/29/2020 2:20 PM SCREEN PRINTING EQUIPMENT SETTER Pulse 63 05/29/2020 2:20 PM SCREEN PRINTING EQUIPMENT SETTER Temperature 36.4 C (97.6 F) 05/29/2020 2:20 PM SCREEN PRINTING EQUIPMENT SETTER Respiratory Rate 16 05/29/2020 2:20 PM SCREEN PRINTING EQUIPMENT SETTER Oxygen Saturation 98% 05/29/2020 1:09 PM SCREEN PRINTING EQUIPMENT SETTER Inhaled Oxygen Concentration - - Weight 92.5 kg (203 lb 14.4 oz) 07/29/2019 9:51 AM SCREEN PRINTING EQUIPMENT SETTER Height 169.5 cm (5' 6.75) 07/29/2019 9:51 AM CS T Body Mass Index 32.17 07/29/2019 9:51 AM SCREEN PRINTING EQUIPMENT SETTER Plan of Treatment Not on file Care Teams Cracking Machine Operator Relationship Specialty Start Date End Date No Ref-Primary, Physician PCP - General 09/30/17 Candida Epps MD Internal Medicine 01/15/19
--- OUTSIDE RECORDS SUMMARY | 2024-07-21 11:40 | XMS_ITS | Encounter Summary ---
Author Organization [facility] Address [address] [place] [address] Care Team Providers Care Truck Technician Name Role Phone No Ref-Primary, Physician Primary Care Provider Candida Epps MD Unavailable Shala Bell RN Unavailable Unavailable Ronaldo jones MD Unavailable [phone] Candida Epps MD Unavailable Boaz Garcia MD Unavailable [phone] Rodrick Turner MD Unavailable Reason for Visit * Reason Onset Date Comments Appointment 07/02/2019 Encounter Details Date Type Department Care Team (Late st Contact Info) Description 07/02/[address] [phone] Barbara Caballero MD [address] [place] [address] Appointment Social History Tobacco Use Types [...] on file Legal Sex Female 4:16 AM COMMUNITY ACTION WORKER Gender Identity Not on file Sexual Orientation Not on file documented as of this encounter Miscellaneous Notes * Telephone Encounter - Winter Perera - 07/02/2019 10:57 AM CST Reason for call: Other Patient called regarding (reason for call): appointment Additional comments: per Zeinab from [place] [facility] , the patient needs to be seen sooner because the 'cardiac workup was expedited and the patient needs the test before being cleared for surgery. Roxane has faxed over notes in regards to the patient. Phone number to reach patient: Home number on file [phone] (home) Best Time: anytime Can we leave a detailed message on this number? YES UNITY ACTION WORKER documented in this encounter Plan of Treatment Not on file documented as of this encounter Visit Diagnoses Not on filedocumented in this encounter Care Teams Truck Technician Relationship Specialty Start Date End Date No Ref-Primary, Physician PCP - General 09/30/17 Candida Epps MD Internal Medicine 01/15/19 Shala Bell, HELENE Specialty Deployment Engineer Hematology & Oncology 01/15/19 07/23/21 Ronaldo Cheatham MD [address] [facility] [address] [place], [place] [phone] Assigned Heart and Vascular Provider 05/05/20 09/09/[address] [facility] [address] [place] [address] Assigned Cancer Care Provider 05/05/20 07/22/20 Boaz Garcia MD [address] [facility] [address] [place] [address] Assigned Surgical Provider 05/05/20 01/25/21 Rodrick Turner MD [address] [facility] [address] [place] [address] Assigned Sleep Provider 05/05/20 documented as of this encounter
--- OUTSIDE RECORDS SUMMARY | 2024-07-21 11:40 | XMS_ITS | Encounter Summary ---
Author Organization [facility] Address [address] [place] [address] Care Team Providers Care Retail Buyer Name Role Phone Ab Patterson MD Primary Care Provider [phone] Encounter Details Date Type Department Care Team (Late st Contact Info) Description 12/13/2015 Outside Hospital External to [facility], Provider HISTORY AND PHYSICAL Social History [...] filedocumented in this encounter Care Teams Retail Buyer Relationship Specialty [place] [address] [place] [address] PCP - General Family Practice 11/30/15 documented as of this encounter
--- OUTSIDE RECORDS SUMMARY | 2024-07-21 11:40 | XMS_ITS | Encounter Summary ---
Author Organization [facility] Address [address] [place] [address] Care Team Providers Care Diesel Maintenance Technician Name Role Phone Ab Patterson MD Primary Care Provider [phone] Encounter Details Date Type Department Care Team (Late st Contact Info) Description 05/10/2016 Scanned History External to Transferred Record, Provider [facility] Social History Tobacco Use Types Packs/Day Years Used Date Smoking Tobacco: Never Assessed Sex and Gender Information Value Date Recorded Sex Assigned at Not on file Gender Identity Not on file Sexual Orientation Not on file documented as of this encounter Plan of Treatment Not on file documented as of this encounter Visit Diagnoses Not on filedocumented in this encounter Care Teams Diesel Maintenance Technician Relationship Specialty [place] [address] [place] [address] PCP - General Family Practice 11/30/15 documented as of this encounter
--- OUTSIDE RECORDS SUMMARY | 2024-07-21 11:40 | XMS_ITS | Clinical Summary ---
Author Organization [facility] Address [address] [place] [address] Care Team Providers Care Operations Boardman Name Role Phone Ab Patterson MD Primary Care Provider [phone] Source Comments You are receiving this document [...] for each transition of care or referral. [facility] Allergies Active Allergy Reactions Criticality Noted [...] and spleen managed by Dr Delgadillo of [place] pain Plantar fasciitis 12/01/2015 Immunizations Name Administration [...] (04/11/2016 2:10 PM CDT) Cytology, Pap (NOTE) Heater Operator Helper Cytology Report Patient Name: JENNIFER MENDEZ Taken: [...] Menopausal Microscopic Description Microscopic examination is performed. [facility] Department of Pathology [address] [place] [address] [facility] 04/11/2016 2:10 PM CDT 04/12/2016 7:17 AM CDT Kari Dixon MD LAB_1 [facility] [phone] * CHOLESTEROL, TOTAL AND HDL (02/22/1998 11:50 AM CDT) Cholesterol 160 <200 mg/dl [facility] HDL 43 >35 mg/dl [facility] 02/22/1998 11:5 0 AM CDT 02/22/1998 11:51 AM CDT Radha Tovar APRN, CNP LAB_1 Performing Organization Address City/[facility] Co de Phone Number [facility] [address] [address] * HIV 1/2 ANTIBODY (02/22/1998 11:50 AM CDT) HIV 1/2 Antibody Non-Reacti ve [facility] 02/22/1998 11:5 0 AM CDT 02/22/1998 11:51 AM CDT Radha Tovar APRN, CNP LAB_1 Performing Organization Address [facility] Co de Phone Number [facility] [address] [address] from Last 3 Months or Most Recently Relevant to Health Maintenance Care Teams Operations Boardman Relationship Specialty [place] [address] [place] [address] PCP - General Family Practice 11/30/15
--- OUTSIDE RECORDS SUMMARY | 2024-07-21 11:40 | XMS_ITS | Clinical Summary ---
Author Organization [facility] Address [address] [place] [address] Care Team Providers Care Driller Helper Name Role Phone No Ref-Primary, Physician Primary [...] sodium-potassiu m bicarbonate-cit devi acid (VASYL-SELTZER GOLD) [phone] MG TBEF solu-tab Take 1 tablet by [...] on file Legal Sex Female 4:16 AM BIOGEOGRAPHER Gender Identity Not on file Sexual Orientation Not on file Last Filed Vital Signs Vital Sign Reading Time Taken Comments Blood Pressure 118/72 05/29/2020 2:20 PM BIOGEOGRAPHER Pulse 63 05/29/2020 2:20 PM BIOGEOGRAPHER Temperature 36.4 C (97.6 F) 05/29/2020 2:20 PM BIOGEOGRAPHER Respiratory Rate 16 05/29/2020 2:20 PM BIOGEOGRAPHER Oxygen Saturation 98% 05/29/2020 1:09 PM BIOGEOGRAPHER Inhaled Oxygen Concentration - - Weight 92.5 kg (203 lb 14.4 oz) 07/29/2019 9:51 AM BIOGEOGRAPHER Height 169.5 cm (5' 6.75) 07/29/2019 9:51 AM CS T Body Mass Index 32.17 07/29/2019 9:51 AM BIOGEOGRAPHER Plan of Treatment Not on file Care Teams Driller Helper Relationship Specialty Start Date End Date No Ref-Primary, Physician PCP - General 09/30/17 Candida Epps MD Internal Medicine 01/15/19
--- OUTSIDE RECORDS SUMMARY | 2024-07-21 11:40 | XMS_ITS | Encounter Summary ---
Author Organization [facility] Address [address] [place] [address] Care Team Providers Care Field Service Engineer Name Role Phone No Ref-Primary, Physician Primary Care Provider Candida Epps MD Unavailable Shala Bell RN Unavailable Unavailable Ronaldo Cheatham MD Unavailable [phone] Candida Epps MD Unavailable Boaz Garcia MD Unavailable [phone] Rodrick Turner MD Unavailable Reason for Visit * Reason Onset Date Comments Appointment 12/16/2018 Encounter Details Date Type Department Care Team (Late st Contact Info) Description 12/16/2018 Telephone [facility] [address] [place] [address] Edin Hu MD [facility] [address] [place] [address] Appointment Social History Tobacco Use Types [...] on file Legal Sex Female 4:16 AM FEEDER TENDER Gender Identity Not on file Sexual Orientation Not on file documented as of this encounter Miscellaneous Notes * Telephone Encounter - Amee Davidson - 12/16/2018 8:28 AM CDT lvm documented in this encounter Plan of Treatment Not on file documented as of this encounter Visit Diagnoses Not on filedocumented in this encounter Care Teams Field Service Engineer Relationship Specialty Start Date End Date No Ref-Primary, Physician PCP - General 09/30/17 Candida Epps MD Internal Medicine 01/15/19 Shala Bell, HELENE Specialty Sulky Driver Hematology & Oncology 01/15/19 07/23/21 Ronaldo Cheatham MD [address] [facility] [address] [place], [place] [address] Assigned Heart and Vascular Provider 05/05/20 09/09/[address] [facility] [address] [place] [address] Assigned Cancer Care Provider 05/05/20 07/22/20 Boaz Garcia MD [address] [facility] [address] [place], [place] [address] Assigned Surgical Provider 05/05/20 01/25/21 Rodrick Turner MD [address] [facility] [address] [place], [place] [address] Assigned Sleep Provider 05/05/20 documented as of this encounter
--- OUTSIDE RECORDS SUMMARY | 2024-07-21 11:40 | XMS_ITS | Clinical Summary ---
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 Max acetaminophen dose: 4000mg in 24 hrs. 15 tablet 0 5 Active folic acid 1 mg tablet Take 1 mg by mouth once daily. 1 Active allopurinoL (ZYLOPRIM) 300 mg tablet Take 300 mg by mouth once daily. 1 Active LORazepam (ATIVAN) 0.5 mg tab Take 0.5 mg by mouth 4 times daily if needed. Active morphine CONTROLLED-RELE ASE (MS CONTIN) 15 mg tablet Take 15 mg by mouth one time if needed. 1 Active morphine CONTROLLED RELEASE (MS CONTIN) 60 mg tablet Take 1 Tablet by mouth 2 times daily. 9 Active Stimulant Laxative Plus 8.6-50 mg tablet Take 8.6-50 Tablets by mouth 2 times daily. 0 Active sennosides-docu sate, 8.6-50 mg, (SENOKOT S) 8.6-50 mg tablet Take 1 Tablet by mouth 2 times daily if needed. Active Senna 8.6 mg tablet Take 8.6 mg by mouth 2 times daily. 1 Active sodium/potassiu m bicarbonate citric acid (VASYL-SELTZER GOLD) tablet Take 1 Tablet by mouth each time if needed. Active pantoprazole (PROTONIX) 40 mg delayed-release tablet Take 40 mg by mouth once daily. 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 Gender Identity Not on file Sexual Orientation Not on file Obstetrics History Last Filed Vital Signs Vital Sign Reading Time Taken Comments Blood Pressure 113/66 05/24/2021 1:18 PM 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 Pulse 111 05/24/2021 1:18 PM 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 Temperature 36.2 C (97.1 F) 05/24/2021 1:18 PM 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 PCP - General 10/03/20
--- OUTSIDE RECORDS SUMMARY | 2024-07-21 11:41 | XMS_ITS | Referral Summary ---
Author Organization [facility] Address [address] [place] [id number] Care Team Providers Care Apparatus Engineering Technologist Name Role Phone Elsewhere, Pcp Primary Care Provider Unavailabl e Source Comments Patient records contain information from all sites at [facility]. For routine questions regarding patient records, call [phone] during business hours, M-F 8:00 AM - 5:00 PM Central Time. Record requests for emergency care only can be directed to [phone] at any time.[facility] Encounters Date Type Department Care Team Description 07/20/2024 Orders Only Department of Cardiovascular Medicine in [place], [place] [address] [place] [phone] Fernando Schmidt, P.A.-C. Fluid Overload Unspecified; Hypertension Pulmonary (HCC) 07/20/2024 Orders Only Department of Cardiovascular Medicine in [place], [place] [address] [place] [phone] Fernando Schmidt, P.A.-C. Fluid Overload Unspecified (Primary Dx); Hypertension Pulmonary (HCC) 07/20/2024 Clinical Communication Department of Cardiovascular Medicine in [place], [place] [address] [place] [phone] Matthew Mayes M.D. Symptom Assessment 07/19/2024 Documentation Division of Hematology in [place], [place] [address] [place] [phone] Janusz Govea M.B.B.S. 07/19/2024 Clinical Communication Pharmacy Prior Auth [phone] Jolene Vargas APRN, C.NZahraaP. Rx Prior Authorization (Torsemide 60 mg tablet) 07/19/2024 Clinical Communication Division of Hematology in [place], [place] [address] [place] [phone] Janusz Govea M.B.B.S. Anxiety 07/16/2024 Clinical Communication Pharmacy Prior Auth [id number] Alon Kenney 07/08/2024 4:28 PM PET SITTING - 07/16/2024 1:44 PM PET SITTING Hospital Encounter [facility], Sixth Floor [address] [place] [phone] Ludin Moreno M.D. Shital Frank M.D., Pharm.D. Frankie Moreau M.D. Decline Functional Status [R53.81] (Primary Dx); Hypertension Pulmonary (HCC); Dyspnea On Exertion; Failure Heart Right (HCC) Discharge Disposition: Home or Self Care 07/15/2024 10:13 AM PET SITTING - 07/15/2024 11:13 AM PET SITTING Surgery Division of Cardiovascular Diseases in [place], [place] [address] [place] [phone] Ritesh Ortiz M.D. HEART CATHETERIZATION - RIGHT 07/08/2024 Intake [facility] 07/08/2024 Clinical Communication Department of Cardiovascular Medicine in [place], [place] [address] [place] [phone] Matthew Mayes M.D. Symptom Assessment (Patient wants to be admitted & given Lasix to get rid of excess water weight.) 07/08/2024 Clinical Communication Isidro [facility] in [place], [place] [address] [place] [phone] Amna Dorman 07/06/2024 Orders Only Division of Hematology in [place], [place] [address] [place] [phone] External, Ordering ProviderDewayne 06/29/2024 Clinical Communication Division of Hematology in [place], [place] [address] [place] [address] Isidro Zamarripa M.B., B.Ch. Appt Request 06/29/2024 12:20 PM PET SITTING - 06/29/2024 11:59 PM PET SITTING Hospital Encounter Department of Laboratory Medicine and Pathology, [facility], in [place], [place] [address] [place] [address] Isidro Zamarripa M.B., B.Ch. Myelofibrosis (HCC); Anemia; Hemosiderosis Discharge Disposition: Home or Self Care 06/29/2024 Orders Only Division of Hematology in [place], [place] [address] [place] [phone] External, Ordering Provider, Dewayne 06/29/2024 11:30 AM PET SITTING Office Visit Division of Hematology in [place], [place] [address] [place] [phone] Isidro Zamarripa M.B., B.Ch. Myelofibrosis (HCC) (Primary Dx); Anemia; Hemosiderosis 06/16/2024 Orders Only Division of Hematology in [place], [place] [address] [place] [phone] External, Ordering Provider, Dewayne 06/16/2024 11:30 AM PET SITTING Virtual Visit Division of Hematology in [place], [place] [address] [place] [phone] Janusz Govea M.B.B.SZahraa Myelofibrosis Primary (HCC) (Primary Dx) 06/15/2024 Refill Division of Hematology in [place], [place] [address] [place] [address] Janusz Govea M.B.B.S. Med Refill 06/11/2024 2:00 PM PET SITTING Procedure visit Department of Infusion Therapy in [place], [place] [address] [place] [phone] Janusz Govea M.B.B.SBenja Roberts, REstefania Malignant Neoplasm Of Bone Primary (HCC) (Primary Dx) 06/11/2024 12:08 PM PET SITTING - 06/11/2024 12:53 PM PET SITTING Hospital Encounter Department of Laboratory Medicine and Pathology, [facility], in [place], [place] [address] [place] [phone] Janusz Govea M.B.B.S. Myelofibrosis Primary (HCC) Discharge Disposition: Home or Self Care 06/07/2024 5:00 PM PET SITTING - 06/08/2024 5:04 AM PET SITTING Emergency [facility] Emergency Department [address] [place] [phone] Discharge Disposition: ED Dismiss - Never Arrived 06/07/2024 Orders Only Division of Hematology in [place], [place] [address] [place] [phone] External, Ordering Provider, Dewayne 06/07/2024 Clinical Communication Department of Cardiovascular Medicine in [place], [place] [address] [place] [phone] Palak Gandhi R.N. Triage 06/07/2024 Intake [facility] 06/03/2024 Orders Only Division of Hematology in [place], [place] [address] [place] [phone] Janusz Govea M.B.B.S. Myelofibrosis Primary (HCC) (Primary Dx) 06/01/2024 Clinical Communication Division of Hematology in [place], [place] [address] [place] [phone] Janusz Govea M.B.B.SZahraa hemoglobin decrease 05/31/2024 Orders Only Division of Hematology in [place], [place] [address] [place] [phone] External, Ordering Provider, Dewayne 05/24/2024 Orders Only Division of Hematology in [place], [place] [address] [place] [phone] External, Ordering Provider, Dewayne 05/20/2024 Orders Only Division of Hematology in [place], [place] [address] [place] [phone] External, Ordering Provider, Dewayne 05/19/2024 Clinical Communication Department of Cardiovascular Medicine in [place], [place] [address] [place] [phone] Matthew Mayes 05/13/2024 Orders Only Division of Hematology in [place], [place] [address] [place] [phone] External, Ordering Provider, MKathleen 05/05/2024 Orders Only Division of Hematology in [place], [place] [address] [place] [phone] External, Ordering Provider, MKathleen 05/05/2024 Clinical Communication Division of Hematology in [place], [place] [address] [place] [phone] Janusz Govea M.B.B.S. Rash 04/29/2024 Orders Only Division of Hematology in [place], [place] [address] [place] [phone] External, Ordering Provider, Dewayne 04/28/2024 Orders Only [facility] in [place], [place] [address] [place] [phone] Eliana Vargas M.D. 04/27/2024 4:00 PM CDT Office Visit Department of Cardiovascular Medicine in [address] [phone] Matthew Mayes M.D. Regurgitation Tricuspid (Primary Dx); Gastroesophageal Reflux Disease; Splenomegaly Acquired; Myelofibrosis Primary (HCC); Chronic Pain Syndrome; Failure Heart Right (HCC); Hypertension Pulmonary (HCC); Myelofibrosis (HCC); Dyspnea On Exertion; Obesity Body Mass Index 30-39.9 Adult 04/27/2024 9:00 AM CDT - 04/27/2024 10:15 AM CDT Surgery Division of Cardiovascular Diseases in [address] [phone] Matthew Mayes M.D. NITRIC OXIDE STUDY 04/27/2024 7:56 AM CDT - 04/27/2024 10:33 AM CDT Hospital Encounter Division of Cardiovascular Diseases in [address] [phone] Matthew Mayes M.D. Hypertension Pulmonary (HCC); Myelofibrosis (HCC); Dyspnea On Exertion Discharge Disposition: Home or Self Care 04/26/2024 2:10 PM CDT - 04/26/2024 11:59 PM CDT Hospital Encounter Department of Laboratory Medicine in [address] [phone] Matthew Mayes M.D. Dyspnea On Exertion; Hypertension Pulmonary Primary (HCC) Discharge Disposition: Home or Self Care 04/22/2024 Clinical Communication Division of Hematology in [place], [place] [address] [place] [phone] Janusz Govea M.B.B.S. 04/22/2024 Orders Only Division of Hematology in [address] [phone] External, Balaji Olmos M.D. 04/22/2024 Orders Only Department of Cardiovascular Medicine in [place], [place] [address] [place] [phone] Denita Chavez RZahraaNZahraa Dyspnea On Exertion (Primary Dx); Hypertension Pulmonary Primary (HCC) 04/22/2024 2:30 PM CDT Virtual Visit Department of Cardiovascular Medicine in [place], [place] [address] [place] [phone] Matthew Mayes M.D. McDonald, Cheryl L RZahraaNZahraa Regurgitation Tricuspid (Primary Dx); Hypertension Pulmonary (HCC); Myelofibrosis (HCC); Dyspnea On Exertion; Failure Heart Right (HCC) 04/20/2024 Clinical Communication Division of Hematology in [place], [place] [address] [place] [phone] Janusz Govea M.B.B.S. Order Request from Last 3 Months Allergies No known active allergies Medications * This document contains information received from the source organization and may not represent a complete record from that organization. sennosides (SENOKOT) 8.6 mg tablet Take 2 tablets by mouth at bedtime as needed. 03/07/20 16 Active sodium-potassiu m bicarbonate (VASYL-SELTZER GOLD) 344-1,050-1,000 mg tablet, effervescent [...] needed for pain (Do not exceed 4000mg/day.). 03/18/20 22 Active morphine (MS CONTIN) 30 mg ER tablet Take 30 mg by mouth 2 (two) times a day. 09/16/19 23 Active morphine (MS CONTIN) 15 mg ER tablet TAKE 1 TABLET BY MOUTH EVERY 12 HOURS FOR PAIN 11/16/19 23 Active sildenafil (REVATIO) 20 mg tablet Take 1 tablet (20 mg total) by mouth 3 (three) times a day. 90 tablet 11 07/30/19 24 025 Active diphenhydrAMINE -acetaminophen (TYLENOL PM) 25-500 mg per tablet Take 2 tablets by mouth at bedtime as needed for sleep. Active omeprazole (PriLOSEC) [address] capsule Take 1 capsule (20 mg total) by mouth daily. 90 capsule 3 01/22/20 24 Active hydroxyurea (Hydrea) 500 mg capsule TAKE 1 CAPSULE BY MOUTH TWICE DAILY AT THE SAME TIME EVERY DAY 180 capsule 1 01/27/20 24 Active DME CPAPIndications :Obstructive Sleep Apnea Adult DME Order 1 each 02/04/20 24 Active allopurinoL (Zyloprim) 300 mg tablet TAKE 1 TABLET BY MOUTH DAILY 90 tablet 3 06/15/20 24 Active oxyCODONE (Oxy IR) 5 mg immediate release capsule Take 5 mg by mouth as needed. 06/28/20 24 Active medical cannabis tablet Take 1 tablet by mouth every 8 (eight) hours as needed (pain). CBD component: 10 mg Active DME OxygenIndicatio ns:Hypertension Pulmonary (HCC),Failure Heart Right (HCC) DME Order - for details see Order Report 1 each 07/16/19 25 Active DME OxygenIndicatio ns:Hypertension Pulmonary (HCC),Failure Heart Right (HCC) DME Order - for details see Order Report 1 each 07/16/19 25 Active torsemide (Demadex) 20 mg tabletIndicatio ns:Fluid Overload Unspecified,Hyp ertension Pulmonary (HCC) Take 3 tablets (60 mg total) by mouth 2 (two) times a day with meals. 180 tablet 07/20/19 25 Active oxyCODONE (ROXICODONE) 5 mg immediate release tabletIndicatio ns:Acute Pain Exception Take 1 tablet (5 mg total) by mouth 2 (two) times a day Indication: Acute Pain Exception. 8 tablet 03/25/20 024 Discontinued buPROPion XL (WELLBUTRIN XL) 150 mg 24 hr tablet Take 150 mg by mouth daily. 11/23/19 024 Discontinued(D iscontinued by another clinician) RX WELCOME PACKET-SPECIALT Y-OP ONLY Welcome packet 1 each 4 2:07 PM PET SITTING 07/18/19 24 024 Discontinued predniSONE (Deltasone) 20 mg tablet Take 1 tablet by mouth 2 (two) times a day. 11/11/19 24 024 Discontinued torsemide (Demadex) 20 mg tablet Take 2 tablets (40 mg total) by mouth 2 (two) times a day. 120 tablet 03/05/20 24 025 Discontinued(S top Taking at Discharge) danazoL (Danocrine) 200 mg capsule Take 1 capsule (200 mg total) by mouth 2 (two) times a day. 60 capsule 3 06/16/20 24 025 Discontinued(S top Taking at Discharge) medical cannabis tablet Take 1 tablet by mouth every 8 (eight) hours as needed (pain). 024 Discontinued torsemide 60 mg tablet Take 60 mg by mouth 2 (two) times a day before morning and evening meals. 180 tablet 07/16/19 25 025 Discontinued(F ormulary change) torsemide (Demadex) 20 mg tabletIndicatio ns:Fluid Overload Unspecified,Hyp ertension Pulmonary (HCC) Take 3 tablets (60 mg total) by mouth 2 (two) times a day with meals. 180 tablet 07/20/19 25 025 Discontinued(R eorder) Active Problems Patient Care Coordination No te [...] follow up with your provider, Contact RN ocular care aide for sudden weight gain or worsening symptoms/side effects, and Contact EMS for emergent conditions Current functional limitations: Class III: symptoms with less than ordinary physical activity and significant limitations with physical activity Assistive devices/DME used: Current Community Resources: outpatient lab, [facility] Problem Noted Date Diagnosed Date Myelofibrosis 04/06/2024 Secondary Pulmonary Arterial Hypertension 2022 Anemia Of Chronic Disease 03/12/2022 Chronic Pain Syndrome 03/12/2022 Dyspnea On Exertion 06/29/2021 Overview (06/29/2021): Added automatically from request for surgery [id number] Hypertension Pulmonary 06/11/2021 Hyperuricemia 06/08/2021 Edema 06/08/2021 Elevated Creatinine 06/08/2021 Gastroesophageal Reflux Disease 06/08/2021 Splenomegaly Acquired 06/06/2021 Overview (06/06/2021): Added automatically from request for surgery [id number] Pancytopenia 06/06/2021 Fluid Overload Unspecified 06/06/2021 Anxiety [...] = 0.6 oz pur e alcohol) occasional Aleth Utilities Answer Date Recorded In the past 12 months has Obsorb, gas, oil, or water Savor threatened to shut off services in your home? Yes 07/09/2024 Humiliation, Afraid, Rape, and Kick questionnair e Answer Date Recorded Within the last year, have y ou been afraid of your partner or ex-partner? No 07/09/2024 Within the last year, have y ou been humiliated or emotionally abused in other ways by your partner or ex-partner? No Within the last year, have y ou been kicked, hit, slapped, or otherwise physically hurt by your partner or ex-partner? No 07/09/2024 Within the last year, have y ou been raped or forced to have any kind of sexual activity by your partner or ex-partner? No 07/09/2024 PHQ-2 Answer Date Recorded PHQ-2 Score 0 07/24/2021 Hunger Vital Sign Answer Date Recorded Within the past 12 months, y ou worried that your food would run out before you got the money to buy more. Never true 07/09/20 24 Within the past 12 months, t he food you bought just didn't last and you didn't have money to get more. Never true 07/09/2024 PRAPARE - Transportation Answer Date Re corded In the past 12 months, has l ack of transportation kept you from medical appointments or from getting medications? No 06/14 In the past 12 months, has l ack of transportation kept you from meetings, work, or from getting things needed for daily living? No 07/09/2024 Nutrition Answer Date Recorded Nutrition: EVOO Fat Source 13 02/07 Nutrition: Servings of Fruits/Vegetables per Day Not on file 02/08/2020 Dental Answer Date Recorded Dental: Regular Dentist Unknown 09/06/19 Housing Stability Answer Date Recorded What is your living situation today? I have a [facility] place to live 07/09/2024 Comments No Sex and Gender Information Value Date Recorded Sex Assigned at Female 07/24/2021 11:03 AM PET SITTING Legal Sex Female 9:12 PM PET SITTING Gender Identity Female 07/24/2021 11:03 AM PET SITTING Sexual Orientation Straight 07/24/2021 11 :03 AM PET SITTING Last Filed Vital Signs Vital Sign Reading Time Taken Comments Blood Pressure 117/61 07/16/2024 10:45 AM PET SITTING Pulse 91 07/16/2024 8:15 AM PET SITTING Temperature 36.9 C (98.4 F) 07/16/2024 10:53 AM PET SITTING Respiratory Rate 16 07/16/2024 10:45 AM PET SITTING Oxygen Saturation 87% 07/16/2024 10:53 AM PET SITTING Inhaled Oxygen Concentration - - Weight 136 kg (299 lb 13.2 oz) 07/16/2024 9:28 A M PET SITTING Height 171 cm (5' 7.32) 07/09/2024 12:52 PM PET SITTING Body Mass Index 46.51 07/09/2024 12:52 PM PET SITTING Plan of Treatment Upcoming Encounters Date Type Department Care Team (Late st Contact Info) Description 08/10/2024 8:30 AM PET SITTING Telemedicine Division of Hematology in [place], [place] [address] [place] [address] Isidro Zamarripa M.B., B.Ch. [address] [place] [address] 08/26/2024 8:30 AM PET SITTING Appointment Department of Laboratory Medicine and Pathology, [facility], in [place], [place] [address] [place] [phone] Matthew Mayes M.D. [address] [place] [phone] 08/26/2024 9:00 AM PET SITTING Appointment Department of Cardiac Rehabilitation in [place], [place] [address] [place] [phone] Matthew Mayes M.D. [address] [place] [phone] 08/26/2024 11:00 AM PET SITTING Clinical Support Department of Nutrition and Diabetes Education in [place], [place] [address] [place] [phone] Matthew Mayes M.D. [address] [place] [phone] Karmen Zambrano RDN, LD [address] [place] [phone] 08/27/2024 10:30 AM PET SITTING Office Visit Department of Cardiovascular Medicine in [place], [place] [address] [place] [phone] Matthew Mayes M.D. [address] [place] [phone] 09/14/2024 12:00 PM PET SITTING Appointment Department of Laboratory Medicine and Pathology, [facility], in [place], [place] [address] [place] [phone] Janusz Govea M.B.B.S. [address] [place] [phone] 09/14/2024 2:00 PM PET SITTING Office Visit Division of Hematology in [place], [place] [address] [place] [phone] Janusz Govea M.B.B.SZahraa [address] [place] [phone] Medical Devices Implanted Type Area Director Of [employer]col[employer]iate Athletics Device Identifier Shelf Expiration Date Model / Serial / Lot Clp Laura Corey - [id number] Implanted:Qty : 1 on 03/13/2022 by Hema Rothman M.D. at [facility] Hardware e.g. pins/screws/ rods N/A: [employer] [id number] / / Clp Laura Corey Md - [id number] Implanted:Qty : 1 on 03/13/2022 by Hema Rothman M.D. at [facility] Hardware e.g. pins/screws/ rods N/A: [employer] [id number] / / Procedures Procedure Name Priority Date/Time Associated Diagnosis Comments CBC WITHOUT DIFFERENTIAL, B Routine 07/16/2024 10:11 AM PET SITTING MAGNESIUM, S Routine 07/16/2024 10:10 AM PET SITTING BASIC METABOLIC PANEL, S/P Routine 07/16/2024 10:10 AM PET SITTING RT TO ARRANGE FOR HOME DME Routine 07/15/2024 2:38 PM PET SITTING NOCTURNAL OXYGEN STUDY - RT Routine 07/15/2024 2:38 PM PET SITTING CARDIAC CATHETERIZATION Routine 07/15/2024 11:51 AM PET SITTING Hypertension Pulmonary (HCC) Dyspnea On Exertion CARDIAC CATHETERIZATION Routine 07/15/2024 11:51 AM PET SITTING Hypertension Pulmonary (HCC) Dyspnea On Exertion ECHO - INTRAPROCEDURAL IMAGES ONLY Routine 07/15/2024 11:44 AM PET SITTING Failure Heart Right (HCC) ADULT OXYGEN THERAPY Routine 07/15/2024 8:01 AM PET SITTING MAGNESIUM, S Routine 07/15/2024 7:13 AM PET SITTING BASIC METABOLIC PANEL, S/P Routine 07/15/2024 7:13 AM PET SITTING CBC WITHOUT DIFFERENTIAL, B Routine 07/15/2024 7:12 AM PET SITTING ADULT OXYGEN THERAPY Routine 07/14/2024 8:00 PM PET SITTING CBC WITHOUT DIFFERENTIAL, B Routine 07/14/2024 9:32 AM PET SITTING MAGNESIUM, S Routine 07/14/2024 9:32 AM PET SITTING CBC WITHOUT DIFFERENTIAL, B Routine 07/14/2024 9:32 AM PET SITTING BASIC METABOLIC PANEL, S/P Routine 07/14/2024 9:32 AM PET SITTING ADULT OXYGEN THERAPY Routine 07/14/2024 8:00 AM PET SITTING ADULT OXYGEN THERAPY Routine 07/13/2024 8:01 PM PET SITTING MAGNESIUM, S Routine 07/13/2024 9:45 AM PET SITTING CBC WITHOUT DIFFERENTIAL, B Routine 07/13/2024 9:45 AM PET SITTING BASIC METABOLIC PANEL, S/P Routine 07/13/2024 9:45 AM PET SITTING TYPE AND SCREEN Routine 07/13/2024 9:44 AM PET SITTING ADULT OXYGEN THERAPY Routine 07/13/2024 8:01 AM PET SITTING ADULT OXYGEN THERAPY Routine 07/12/2024 8:01 PM PET SITTING BASIC METABOLIC PANEL, S/P Timed 07/12/2024 5:11 PM PET SITTING CBC WITHOUT DIFFERENTIAL, B Timed 07/12/2024 5:10 PM PET SITTING TRANSFUSE RED BLOOD CELLS Routine 07/12/2024 1:01 PM PET SITTING INFLUENZA A, B, RSV, PCR, RAPID, V Routine 07/12/2024 12:28 PM PET SITTING SARS CORONAVIRUS 2, PCR RAPID, V Routine 07/12/2024 12:28 PM PET SITTING GLUCOSE POCT, B Routine 07/12/2024 12:07 PM PET SITTING BACTERIA / RONIT CULTURE, BLOOD Routine 07/12/2024 12:01 PM PET SITTING BACTERIA / RONIT CULTURE, BLOOD Routine 07/12/2024 11:57 AM PET SITTING ADULT OXYGEN THERAPY Routine 07/12/2024 8:01 AM PET SITTING ECG Routine 07/12/2024 6:37 AM PET SITTING GLUCOSE POCT, B Routine 07/12/2024 6:30 AM PET SITTING LACTATE, B/P STAT 07/12/2024 5:02 AM PET SITTING MAGNESIUM, S Routine 07/12/2024 4:52 AM PET SITTING CBC WITHOUT DIFFERENTIAL, B Routine 07/12/2024 4:52 AM PET SITTING BASIC METABOLIC PANEL, S/P Routine 07/12/2024 4:52 AM PET SITTING GLUCOSE POCT, B Routine 07/11/2024 9:17 PM PET SITTING ADULT OXYGEN THERAPY Routine 07/11/2024 8:00 PM PET SITTING GLUCOSE POCT, B Routine 07/11/2024 4:37 PM PET SITTING GLUCOSE POCT, B Routine 07/11/2024 11:37 AM PET SITTING MAGNESIUM, S Routine 07/11/2024 9:10 AM PET SITTING CBC WITHOUT DIFFERENTIAL, B Routine 07/11/2024 9:10 AM PET SITTING BASIC METABOLIC PANEL, S/P Routine 07/11/2024 9:10 AM PET SITTING ADULT OXYGEN THERAPY Routine 07/11/2024 8:00 AM PET SITTING GLUCOSE POCT, B Routine 07/11/2024 6:22 AM PET SITTING GLUCOSE POCT, B Routine 07/10/2024 10:21 PM PET SITTING GLUCOSE POCT, B Routine 07/10/2024 9:53 PM PET SITTING ECG Routine 07/10/2024 8:40 PM PET SITTING ADULT OXYGEN THERAPY Routine 07/10/2024 8:00 PM PET SITTING GLUCOSE POCT, B Routine 07/10/2024 4:32 PM PET SITTING BASIC METABOLIC PANEL, S/P Timed 07/10/2024 3:27 PM PET SITTING GLUCOSE POCT, B Routine 07/10/2024 11:54 AM PET SITTING ADULT OXYGEN THERAPY Routine 07/10/2024 8:00 AM PET SITTING MAGNESIUM, S Routine 07/10/2024 5:45 AM PET SITTING CBC WITHOUT DIFFERENTIAL, B Routine 07/10/2024 5:45 AM PET SITTING BASIC METABOLIC PANEL, S/P Routine 07/10/2024 5:45 AM PET SITTING GLUCOSE POCT, B Routine 07/10/2024 5:43 AM PET SITTING GLUCOSE POCT, B Routine 07/09/2024 9:07 PM PET SITTING ADULT OXYGEN THERAPY Routine 07/09/2024 8:00 PM PET SITTING GLUCOSE POCT, B Routine 07/09/2024 5:12 PM PET SITTING BASIC METABOLIC PANEL, S/P Timed 07/09/2024 3:58 PM PET SITTING CBC WITHOUT DIFFERENTIAL, B Timed 07/09/2024 3:58 PM PET SITTING TRANSFUSE RED BLOOD CELLS Routine 07/09/2024 1:36 PM PET SITTING GLUCOSE POCT, B Routine 07/09/2024 12:03 PM PET SITTING (TTE) 2D ECHO DOPPLER COLOR Routine 07/09/2024 11:37 AM PET SITTING ADULT OXYGEN THERAPY Routine 07/09/2024 8:01 AM PET SITTING SPSMA RESULT Routine 07/09/2024 6:00 AM PET SITTING CBC WITH DIFFERENTIAL, B Routine 07/09/2024 6:00 AM PET SITTING THYROID-STIMULATING HORMONE-SENSITIVE (S-TSH) Routine 07/09/2024 6:00 AM PET SITTING MAGNESIUM, S Routine 07/09/2024 6:00 AM PET SITTING LIPID PANEL, S Routine 07/09/2024 6:00 AM PET SITTING HEMOGLOBIN A1C, B Routine 07/09/2024 6:0 0 AM [facility] COMPREHENSIVE METABOLIC PANEL, S/P Routine 07/09/2024 6:00 AM PET SITTING PREPARE RED BLOOD CELLS Routine 07/09/2024 5:55 AM PET S[facility]ING PREPARE RED BLOOD CELLS Routine 07/09/2024 5:55 AM PET SITTING TYPE AND SCREEN Routine 07/09/2024 5:55 AM [facility]ING FRUCTOSAMINE, S/P Routine 07/09/2024 5:5 5 AM PET SITTING THYROPEROXIDASE (TPO) ABS, S Routine 07/09/2024 5:55 AM PET SITTING T3 (TRIIODOTHYRONINE), TOT, S Routine 07/09/2024 5:55 AM PET SITTING T4 (THYROXINE), FREE, S Routine 07/09/2024 5:55 AM [facility] SITTING ADULT OXYGEN THERAPY Routine 07/08/2024 8:00 PM PET SITTING DX CHEST AP OR PA AND LATERAL 2 VIEWS RAD - Routine (most inpatients and all outpatients) 07/08/2024 6:30 PM PET SITTING NT-PRO B-TYPE NATRIURETIC PEPTIDE (BNP), S Routine 07/08/2024 5:20 PM PET SITTING MAGNESIUM, S Routine 07/08/2024 5:20 PM [facility]ING COMPREHENSIVE METABOLIC PANEL, S/P Routine 07/08/2024 5:20 PM PET SITTING CBC WITHOUT DIFFERENTIAL, B Routine 07/08/2024 5:20 PM [facility]ING ADULT OXYGEN THERAPY Routine 07/08/2024 4:29 PM [facility]ING ADULT OXYGEN THERAPY Routine 07/08/2024 4:29 PM [facility]ING ADULT OXYGEN THERAPY Routine 07/08/2024 4:29 PM PET SITTING CBC WITH DIFFERENTIAL, B Routine 07/06/2024 11:05 AM PET SITTING HLA ANTIBODY SUMMARY REPORT 06/29/2024 12:51 PM PET SITTING HLA CLASS I/II COMBINED CPRA, SERUM Routine 06/29/2024 12:51 PM PET SITTING HLA CLASS II SAB ANTIBODY SCREEN Routine 06/29/2024 12:51 PM PET SITTING Myelofibrosis (HCC) HLA CLASS I SAB ANTIBODY SCREEN Routine 06/29/2024 12:51 PM PET SITTING Myelofibrosis (HCC) HLA CLASS II TYPING HIGHRES,RECIP,B Routine 06/29/2024 12:51 PM PET SITTING Myelofibrosis (HCC) HLA CLASS I TYPING HIGHRES,RECIP,B Routine 06/29/2024 12:51 PM PET SITTING Myelofibrosis (HCC) FERRITIN, S Routine 06/29/2024 12:51 PM PET [facility]ITTING Myelofibrosis (HCC) Hemosiderosis IRON AND TOT IRON-BINDING CAPACITY, S/P Routine 06/29/2024 12:51 PM PET [facility]ING Myelofibrosis (HCC) Anemia TRANSPLANT ABO CONFIRMATION Routine 06/29/2024 12:51 PM PET SITTING Myelofibrosis (HCC) CYTOMEGALOVIRUS AB, IGM AND IGG Routine 06/29/2024 12:51 PM PET SITTING Myelofibrosis (HCC) CBC WITH DIFFERENTIAL, B Routine 06/29/2024 9:19 AM PET SITTING CBC WITH DIFFERENTIAL, B Routine 06/16/2024 11:01 AM PET SITTING MYELOID NEOPLASMS, NGS Routine 2:00 PM [facility]ING CHROMOSOMES, HEMATOLOGIC, BM Routine 06/11/2024 2:00 PM PET SITTING KS DX BONE MARROW BX & ASPIR Routine 06/11/2024 2:00 PM PET SITTING Myelofibrosis Primary (HCC) SPSMA RESULT Routine 06/11/2024 12:45 PM PET SITTING LACTATE DEHYDROGENASE (LD), S Routine 06/11/2024 12:45 PM PET SITTING Myelofibrosis Primary (HCC) COMPREHENSIVE METABOLIC PANEL, S/P Routine 06/11/2024 12:45 PM PET SITTING Myelofibrosis Primary (HCC) CBC WITH DIFFERENTIAL, B Routine 06/11/2024 12:45 PM PET SITTING Myelofibrosis Primary (HCC) HEMATOPATHOLOGY Routine 06/11/2024 12:00 AM PET SITTING BASIC METABOLIC PANEL, S/P Routine 06/07/2024 12:00 PM PET SITTING CBC WITH DIFFERENTIAL, B Routine 06/07/2024 11:59 AM PET SITTING CBC WITH DIFFERENTIAL, B Routine 05/31/2024 9:56 AM PET [facility]ITTING CBC WITH DIFFERENTIAL, B Routine 05/24/2024 9:41 AM PET SITTING CBC WITH DIFFERENTIAL, B Routine 05/20/2024 10:11 AM PET [facility]ING CBC WITH DIFFERENTIAL, B Routine 05/13/2024 10:15 [...] DIFFERENTIAL, B Routine 04/22/2024 11:[address] CHEST ANGIOGRAM WITH IV CONTRAST RAD - Semiurgent (Fast; most ED patients; some inpatients) 06/07/2021 10:15 AM PET SITTING from Last 3 Months or Most Recently Relevant to Health Maintenance Results * (ABNORMAL) CBC without Differential (07/16/2024 10:11 AM PET SITTING) Only the most recent of12 resultswithin the time period is included. Hemoglobin 7.2(L) 11.6 - 15.0 g/dL 07/16/2024 10:48 AM PET SITTING DTL Hematocrit 23.5(L) 35.5 - 44.9 % 07/16/2024 10:48 AM PET SITTING DTL Erythrocytes 2.45(L) 3.92 - 5.13 x10(12)/L 07/16/2024 10:48 AM PET SITTING DTL MCV 95.9 78.2 - 97.9 fL 07/16/2024 10:48 AM PET SITTING DTL RBC Distrib Width 21.4(H) 12.2 - 16.1 % 07/16/2024 10:48 AM PET SITTING DTL Platelet Count 306 157 - 371 x10(9)/L 07/16/2024 10:48 AM PET SITTING DTL Leukocytes 24.5(H) 3.4 - 9.6 x10(9)/L 07/16/2024 11:26 AM PET SITTING DTL Comment:Corrected for normob lasts. Blood (Blood, Venous) 07/16/2024 10:11 AM PET SITTING 07/16/2024 10:41 AM PET SITTING Claudia Andrews APRN, C.N.P., D.N.P. LAB BLOOD A DD-ON Final Result [facility] [address] [place] [address], [facility] DTL [facility] [address] [place] [address] * (ABNORMAL) Magnesium (07/16/2024 10:10 AM PET SITTING) Only the most recent of9 resultswithin the time period is included. Magnesium, S 2.9(H) 1.7 - 2.3 mg/dL 07/16/2024 11:17 AM PET SITTING DTL Blood (Blood, Venous) 07/16/2024 10:10 AM PET SITTING 07/16/2024 10:57 AM PET SITTING Claudia Andrews APRN, C.N.P., D.N.P. LAB BLOOD A DD-ON Final Result [facility] [address] [place] [address], [facility] DTL [facility] [address] [place] [address] * (ABNORMAL) Basic Metabolic Panel (07/16/2024 10:10 AM PET SITTING) Only the most recent of12 resultswithin the time period is included. Potassium, S 4.6 3.6 - 5.2 mmol/L 07/16/2024 11:17 AM PET SITTING DTL Sodium, S 142 135 - 145 mmol/L 07/16/2024 11:17 AM PET SITTING DTL Chloride, S 97(L) 98 - 107 mmol/L 07/16/2024 11:17 AM PET [facility]ITTING DTL Bicarbonate, S 34(H) 22 - 29 mmol/L 07/16/2024 11:17 AM PET SITTING DTL Anion Gap 11 7 - 15 07/16/2024 11:17 AM PET SITTING DTL BUN (Blood Urea Nitrogen), S 70(H) 6 - 21 mg/dL 07/16/2024 11:17 AM PET SITTING DTL Creatinine 1.65(H) 0.59 - 1.04 mg/dL 07/16/2024 11:17 AM PET SITTING DTL Estimated GFR (eGFR) 36(L) >=60 mL/min/BSA 07/16/2024 11:17 AM PET SITTING DTL Comment: Estimated GFR calculated using the 2020 CKD_EPI creatinine equation. Calcium, Total, S 8.8 8.6 - 10.0 mg/dL 07/16/2024 11:17 AM PET SITTING DTL Glucose, S 152(H) 70 - 140 mg/dL 07/16/2024 11:17 AM PET SITTING DTL Blood (Blood, Venous) 07/16/2024 10:10 AM PET SITTING 07/16/2024 10:57 AM PET SITTING us Claudia Andrews APRN, C.N.P., D.N.P. LAB BLOOD A DD-ON Final Result [facility] [address] [place] [address], [place] [facility] [address] [place] [address] * RIGHT HEART CATHETERIZATION, NITRIC OXIDE STUDY (07/15/2024 11:51 AM PET SITTING) Anatomical Region Laterality Modality X-Ray Angiograph y 07/15/2024 10:5 7 AM PET SITTING Narrative 07/16/2024 5:48 AM PET SITTING For the complete report, see the Order-Level Documents. PROCEDURE TYPES 1. HEART CATHETERIZATION - RIGHT 2. NITRIC OXIDE STUDY FINAL DIAGNOSIS 1. Significantly elevated right heart filling pressures with upper normal left heart filling pressures in setting of tricuspid regurgitation and pericardial restraint 2. Pulmonary hypertension in setting of high flow and normal PVR and normal left heart filling pressures 3. High cardiac index at rest in setting of anemia 4. Arterial desaturation due to V/Q mismatch 5. Nitric oxide actually decreases systemic flow while increasing PAWP and thus decreasing PVR PRE-PROCEDURE DIAGNOSIS 1. Hypertension Pulmonary (HCC) [I27.20] 2. Dyspnea On Exertion [R06.09] 3. Pulmonary hypertension, unspecified (HCC) 4. Other forms of dyspnea HEMODYNAMICS SUMMARY BASELINE (4L NC): Patient was unable to lie flat so study performed with patient on a wedge. Also, patient desaturated to 78% on pulse-oximeter with laying flat, so study performed on 4L NC. Right heart filling pressures were severely elevated while left heart filling pressures were upper normal and essentially equalized with right heart filling pressures (RAP 17 with V wave 21 which increased dramatically with inspiration and +Kussmaul present; PAWP 14). Pulmonary arterial pressures were moderately elevated (61/29/38) with PVR 2.1 GARIBAY. Cardiac index was high both by assumed Rolf (4.0 L/min/m2) and thermodilution (4.7 L/min/m2) in setting of Hb 7.2 g/dL and arterial saturation 90%. Oxygen saturation run did not reveal a step-up to suggest a significant [id number] intracardiac shunt. Agitated saline study did not show any uuoga-az-[id number] shunt. NITRIC OXIDE 80 PPM (+4L NC OXYGEN): Left heart filling pressures increased slightly (RAP 17, PAWP 19). Pulmonary arterial pressures decreased slightly (PA 55/27/36) with PVR 1.6 GARIBAY. Cardiac index decreased (3.4 L/min/m2 by assumed Rolf and 4.4 L/min/m2 by thermodilution). Arterial saturation 96%. 100% OXYGEN: RAP 17, PAWP 18. PA 50/28/36 with PVR GARIBAY. Cardiac index 3.8 L/min/m2 by Rolf. Arterial saturation 100%. SUMMARY: Overall findings consistent with 1) Significantly elevated right heart filling pressures with upper normal left heart filling pressures in setting of tricuspid regurgitation and pericardial restraint, 2) Pulmonary hypertension in setting of high flow and normal PVR and normal left heart filling pressures, 3) High cardiac index at rest in setting of anemia, 4) Arterial desaturation due to V/Q mismatch, and 5) Nitric oxide actually decreases systemic flow while increasing PAWP and thus decreasing PVR. RADIATION DOSE DATA Procedure cumulative skin dose (mGy): 12.87 Procedure cumulative dose area product (Gy-cm2): 1.19 Fluoro Time (Min): 4.12 For the complete report, see the Order-Level Documents. Procedure Note Ritesh Ortiz M.D. - 07/16/2024 For the complete report, see the Order-Level Documents. PROCEDURE TYPES 1. HEART CATHETERIZATION - RIGHT 2. NITRIC OXIDE STUDY FINAL DIAGNOSIS 1. Significantly elevated right heart filling pressures with upper normalleft heart filling pressures in setting of tricuspid regurgitation andpericardial restraint 2. Pulmonary hypertension in setting of high flow and normal PVR andnormal left heart filling pressures 3. High cardiac index at rest in setting of anemia 4. Arterial desaturation due to V/Q mismatch 5. Nitric oxide actually decreases systemic flow while increasing PAWPand thus decreasing PVR PRE-PROCEDURE DIAGNOSIS 1. Hypertension Pulmonary (HCC) [I27.20] 2. Dyspnea On Exertion [R06.09] 3. Pulmonary hypertension, unspecified (HCC) 4. Other forms of dyspnea HEMODYNAMICS SUMMARY BASELINE (4L NC): Patient was unable to lie flat so study performed with patient on a wedge.Also, patient desaturated to 78% on pulse-oximeter with laying flat, sostudy performed on 4L NC. Right heart filling pressures were severely elevated while left heartfilling pressures were upper normal and essentially equalized with rightheart filling pressures (RAP 17 with V wave 21 which increaseddramatically with inspiration and +Kussmaul present; PAWP 14). Pulmonaryarterial pressures were moderately elevated (61/29/38) with PVR 2.1 GARIBAY.Cardiac index was high both by assumed Rolf (4.0 L/min/m2) andthermodilution (4.7 L/min/m2) in setting of Hb 7.2 g/dL and arterialsaturation 90%. Oxygen saturation run did not reveal a step-up to suggest a [id number] intracardiac shunt. Agitated saline study did not show vrrfkcvo-ix-prya shunt. NITRIC OXIDE 80 PPM (+4L NC OXYGEN): Left heart filling pressures increased slightly (RAP 17, PAWP 19).Pulmonary arterial pressures decreased slightly (PA 55/27/36) with PVR 1.6WU. Cardiac index decreased (3.4 L/min/m2 by assumed Rolf and 4.4 L/min/m2by thermodilution). Arterial saturation 96%. 100% OXYGEN: RAP 17, PAWP 18. PA 50/28/36 with PVR GARIBAY. Cardiac index 3.8 L/min/m2 byFick. Arterial saturation 100%. SUMMARY: Overall findings consistent with 1) Significantly elevated right heartfilling pressures with upper normal left heart filling pressures insetting of tricuspid regurgitation and pericardial restraint, 2) Pulmonaryhypertension in setting of high flow and normal PVR and normal left heartfilling pressures, 3) High cardiac index at rest in setting of anemia, 4)Arterial desaturation due to V/Q mismatch, and 5) Nitric oxide actuallydecreases systemic flow while increasing PAWP and thus decreasing PVR. RADIATION DOSE DATA Procedure cumulative skin dose (mGy): 12.87 Procedure cumulative dose area product (Gy-cm2): 1.19 Fluoro Time (Min): 4.12 For the complete report, see the Order-Level Documents. us Claudia Andrews APRN C.N.P., Haydee.N.P. CV CARDIAC CATH PROCEDURES Final Result * Echo - Intraprocedural Images Only (07/15/2024 11:44 AM PET SITTING) Vanda Dow APRN.N.P., Haydee.N.P. CV ECHO PRO CEDURES Final Result Performing Organization Address City/[facility] Co de Phone Number [facility] EIMS NA * Type and Screen (with Reflex Antibody ID) (07/13/2024 9:44 AM PET SITTING) Only the most recent of2 resultswithin the time period is included. [facility] ABORh A Pos Not applicable 07/13/2024 10:17 AM PET SITTING STRM Antibody Screen Negative Negative 07/13/2024 10:36 AM PET SITTING STRM Type & Screen Expiration 07/16/2024 23:59 07/13/2024 10:17 AM PET SITTING STRM Testing Location [place] DEFAULT 07/13/2024 10:00 AM PET SITTING STRM Blood (Blood, Venous) 07/13/2024 9:44 AM PET SITTING 07/13/2024 10:00 AM PET SITTING Janeth Rojas P.A.-C. LAB BLOOD BANK TEST ORDERAB LES Final Result Performing Organization Address [facility] de Phone Number [facility] [address] [place] [address], [facility] STRFormerly [facility] [address] [place] [address] * Transfuse Red Blood Cells : (07/12/2024 3:10 PM PET SITTING) Only the most recent of2 resultswithin the time period is included. us Janeth Rojas P.A.-C. BLOOD TRANSFUSION ORDERABLE S Final Result * Influenza A, B, RSV, PCR, Rapid (07/12/2024 12:28 PM PET SITTING) [facility] Influenza A, PCR, Rapid, V Negative Negative 07/12/2024 1:32 PM PET SITTING STMA Influenza B, PCR, Rapid, V Negative Negative 07/12/2024 1:32 PM PET SITTING STMA Resp Synctial Virus, PCR, Rapid Negative Negative 07/12/2024 1:32 PM PET SITTING STMA Specimen Source Swab, Nasopharynx 07/12/2024 1:03 PM PET SITTING STMA Swab (Nasopharynx) 07/12/2024 12:28 PM PET SITTING 07/12/2024 12:38 PM PET SITTING Janeth Rojas P.A.-C. LAB MICROBIOLOGY - GENERAL ORDERABLES Final Result Performing Organization Address City/[facility]/ZIP Co de Phone Number [facility] [address] [place] [address] * SARS Coronavirus 2, PCR Rapid Symptomatic (07/12/2024 12:28 PM PET SITTING) [facility] SARS CoV-2, PCR, Rapid, V Undetected Undetected 07/12/2024 1:03 PM PET SITTING STMA SARS Coronavirus 2, Rapid, Source Swab, Nasopharynx 07/12/2024 12:38 PM PET SITTING STMA Swab (Nasopharynx) 07/12/2024 12:28 PM PET SITTING 07/12/2024 12:38 PM PET SITTING Janeth Rojas P.A.-C. LAB MICROBIOLOGY - GENERAL ORDERABLES Final Result Performing Organization Address [facility] Co de Phone Number [facility] [address] [place] [address], [address] [address] * (ABNORMAL) Glucose, POCT (07/12/2024 12:07 PM PET SITTING) Only the most recent of14 resultswithin the time period is included. Pathologist [facility] Glucose, POCT, B 142(H) 70 - 140 mg/dL 07/12/2024 12:22 PM PET SITTING PCLX Site Capillary 07/12/2024 12:22 PM PET SITTING PCLX Last Intake 3-4 hours 07/12/2024 12:22 PM PET SITTING PCLX Blood 07/12/2024 12:0 7 PM PET SITTING 07/12/2024 12:22 PM PET SITTING Unknown Provider LAB POCT ORDERABLES-MANUAL Ese l Result Performing Organization Address [facility] Co de Phone Number POC [facility] [address] [place] [address], [facility] PCLX [facility] POC [address] [place] [address] * Bacteria / Ronit Culture, Blood #2 (07/12/2024 12:01 PM PET SITTING) Only the most recent of2 resultswithin the time period is included. Pathologist [facility] Bacteria/Maria R da Culture, Blood No growth after 5 days of incubation. 07/17/2024 1:02 PM PET SITTING DT Blood (Blood, Peripheral Draw) 07/12/2024 12:01 PM PET SITTING 07/12/2024 12:28 PM PET SITTING Comment:Specimen Source Site : Blood Janeth Rojas P.A.-C. LAB MICROBIOLOGY - GENERAL ORDERABLES Final Result Performing Organization Address [facility] de Phone Number [facility] [address] [place] [address], [facility] [address] [place] [address] * ECG 12 Lead (07/12/2024 6:37 AM PET SITTING) Only the most recent of3 resultswithin the time period is included. Ventricular Rate ECG/Min 105 BPM MUSE KS Interval 160 ms MUSE QRSD Interval 84 ms MUSE QT Interval 370 ms MUSE QTC Interval 489 ms MUSE P [place] -16 degrees MUSE R [place] 90 degrees MUSE T Wave [place] -13 degrees MUSE 07/12/2024 6:37 AM PET SITTING 07/12/2024 7:00 AM PET SITTING Impressions MUSE - 07/12/2024 7:00 AM PET SITTING Sinus tachycardia with sinus arrhythmia Nonspecific ST and T wave abnormality When compared with ECG of 10-Jul-2024 20:40, No significant change was found Reviewed by REG Sinclair Narrative Procedure Note Moreno Saldivar M.D. - 07/12/2024 IMPRESSION: Sinus tachycardia with sinus arrhythmia Nonspecific ST and T wave abnormality When compared with ECG of 10-Jul-2024 20:40, No significant change was found Reviewed by REG Sinclair us Stephen Vasquez P.A.-C. ECG ORDERABLES Final Resu lt MUSE NA * Lactate (07/12/2024 5:02 AM PET SITTING) Pathologist [facility] Lactate, P 1.5 0.5 - 2.2 mmol/L 07/12/2024 5:22 AM PET SITTING STMA Blood (Blood, Venous) 07/12/2024 5:02 AM PET SITTING 07/12/2024 5:09 AM PET SITTING us Stephen Vasquez P.A.-C. LAB BLOOD NON ADD-ON Final Result [facility] [address] [place] [address], [facility] [address] [place] [address] * (TTE) 2D ECHO DOPPLER COLOR (07/09/2024 11:37 AM PET SITTING) [facility] Ejection Fraction 64 MC CV EIMS LV End-Diastolic Diameter 55 MC CV EIMS LV End-Systolic Diameter 35 MC CV EIMS MV E Velocity 1.4 MC CV EIMS MV A Velocity 1.4 MC CV EIMS MV E/A 1 MC CV EIMS MV e' Velocity Medial 0.09 MC CV EIMS MV e' Velocity Lateral 0.12 MC CV EIMS MV E/e' Medial 15.6 MC CV EIMS MV E/e' Lateral 11.7 MC CV EIMS Left ventricular stroke volume index 30 MC CV EIMS Cardiac Output 7.23 MC CV EIMS Cardiac Index 2.99 MC CV EIMS RV 4-Chamber Basal Diameter 58 MC CV EIMS RV 4-Chamber Mid Diameter 49 MC CV EIMS RV 4-Chamber Length 119 MC CV EIMS TAPSE 26 MC CV EIMS Tricuspid Annular S 0.12 MC CV EIMS RV Free Wall Strain -12 MC CV EIMS TR Vmax 3.7 MC CV EIMS RA Pressure 15 MC CV EIMS RV Systolic Pressure 70 MC CV EIMS TR Vmax/RVOT TVI 0.19 MC CV EIMS TV Regurgitant Volume 65 MC CV EIMS Anatomical Region Laterality Modality Echocardiography 07/09/2024 10:2 7 AM PET SITTING Impressions 07/09/2024 1:55 PM PET SITTING Echocardiogram performed per follow-up pulmonary hypertension protocol. Last full echocardiogram performed 07/30/2023. LEFT VENTRICLE:Normal left ventricular chamber size. D-shaped left ventricle. Calculated 2-D linear left ventricular ejection fraction 64%. No regional wall motion abnormalities. Indeterminate left ventricular filling pressure. RIGHT VENTRICLE:Severely enlarged right ventricular chamber size. Severely reduced right ventricular systolic function. Averaged right ventricular free wall longitudinal peak systolic strain is -12% (normal </= -25%). Estimated right ventricular systolic pressure 70 mmHg (right atrial pressure of 15 mmHg). CARDIAC VALVES:Mildly thickened aortic valve. Trivial aortic valve regurgitation. Mildly thickened mitral valve. Mildly calcified mitral annulus. Trivial mitral valve regurgitation. Normal pulmonary valve. Normal pulmonary valve systolic velocities. Trivial pulmonary valve regurgitation. Incomplete tricuspid valve coaptation. Severe tricuspid valve regurgitation. Tricuspid regurgitation ERO (PISA) 0.57 cm2. Tricuspid regurgitant volume (PISA) 65 ml. OTHER ECHO FINDINGS:Enlarged inferior vena cava size with reduced inspiratory collapse (<50%). No intracardiac mass or thrombus, but the left atrial appendage cannot be visualized adequately with transthoracic echo to exclude thrombus in this location. No pericardial effusion. For the complete report, see the Order-Level Documents. Narrative 07/09/2024 1:55 PM PET SITTING For the complete report, see the Order-Level Documents. Hemodynamics Heart Rate: 100 BPM Blood Pressure: 114 / 54 mmHg ECG: Sinus rhythm Final Impressions 1. Normal left ventricular chamber size. 2. Calculated 2-D linear left ventricular ejection fraction 64%. 3. Left ventricular cardiac index 2.99 l/min/m2. 4. No regional wall motion abnormalities. Flattening of ventricular septum. 5. Indeterminate left ventricular filling pressure. 6. Severe tricuspid valve regurgitation. 7. Estimated right ventricular systolic pressure 70 mmHg (right atrial pressure of 15 mmHg). 8. Severely enlarged right ventricular chamber size. 9. Severely reduced right ventricular systolic function. 10. Averaged right ventricular free wall longitudinal peak systolic strain is - 12% (normal </= -25%). 11. Enlarged inferior vena cava size with reduced inspiratory collapse (<50%). 12. Compared to the report of 01/22/2024 the following changes have occurred: Cardiac index and the estimate of RV systolic pressure are slightly lower and LV filling pressure may be somewhat higher, but the study is largely unchanged from the previous examination. Procedure Note Delroy Persaud M.D. - 07/09/2024 For the complete report, see the Order-Level Documents. Hemodynamics Heart Rate: 100 BPM Blood Pressure: 114 / 54 mmHg ECG: Sinus rhythm Final Impressions 1. Normal left ventricular chamber size. 2. Calculated 2-D linear left ventricular ejection fraction 64%. 3. Left ventricular cardiac index 2.99 l/min/m2. 4. No regional wall motion abnormalities. Flattening of ventricularseptum. 5. Indeterminate left ventricular filling pressure. 6. Severe tricuspid valve regurgitation. 7. Estimated right ventricular systolic pressure 70 mmHg (right atrialpressure of 15 mmHg). 8. Severely enlarged right ventricular chamber size. 9. Severely reduced right ventricular systolic function. 10. Averaged right ventricular free wall longitudinal peak systolic strainis - 12% (normal </= -25%). 11. Enlarged inferior vena cava size with reduced inspiratory collapse(<50%). 12. Compared to the report of 01/22/2024 the following changes haveoccurred: Cardiac index and the estimate of RV systolic pressure areslightly lower and LV filling pressure may be somewhat higher, but thestudy is largely unchanged from the previous examination. Findings Echocardiogram performed per follow-up pulmonary hypertension protocol.Last full echocardiogram performed 07/30/2023. LEFT VENTRICLE:Normal left ventricular chamber size. D-shaped leftventricle. Calculated 2-D linear left ventricular ejection fraction 64%.No regional wall motion abnormalities. Indeterminate left ventricularfilling pressure. RIGHT VENTRICLE:Severely enlarged right ventricular chamber size. Severelyreduced right ventricular systolic function. Averaged right ventricularfree wall longitudinal peak systolic strain is -12% (normal </= -25%).Estimated right ventricular systolic pressure 70 mmHg (right atrialpressure of 15 mmHg). CARDIAC VALVES:Mildly thickened aortic valve. Trivial aortic valveregurgitation. Mildly thickened mitral valve. Mildly calcified mitralannulus. Trivial mitral valve regurgitation. Normal pulmonary valve.Normal pulmonary valve systolic velocities. Trivial pulmonary valveregurgitation. Incomplete tricuspid valve coaptation. Severe tricuspidvalve regurgitation. Tricuspid regurgitation ERO (PISA) 0.57 cm2.Tricuspid regurgitant volume (PISA) 65 ml. OTHER ECHO FINDINGS:Enlarged inferior vena cava size with reducedinspiratory collapse (<50%). No intracardiac mass or thrombus, but theleft atrial appendage cannot be visualized adequately with transthoracicecho to exclude thrombus in this location. No pericardial effusion. For the complete report, see the Order-Level Documents. us Janeth Rojas P.A.-C. CV ECHO PROCEDURES Final Re sult * (ABNORMAL) Lipid Panel (07/09/2024 6:00 AM PET SITTING) Triglycerides 118 mg/dL 07/09/2024 7:15 AM PET SITTING DTL Comment: ----REFERENCE VALUE---- Normal: <150 mg/dL Borderline High: 150-199 mg/dL High: 200-499 mg/dL Very High: > or =500 mg/dL Cholesterol, Total 93 mg/dL 2023 7:15 AM PET SITTING DTL Comment: ----REFERENCE VALUE---- Desirable: < 200 mg/dL Borderline High: 200 - 239 mg/dL High: > or = 240 mg/dL Cholesterol, LDL, Calculated 54 mg/dL 07/09/2024 7:15 AM PET SITTING DTL Comment: ----REFERENCE VALUE---- Desirable: <100 mg/dL Above Desirable: 100-129 mg/dL Borderline High: 130-159 mg/dL High: 160-189 mg/dL Very High: >=190 mg/dL ----ADDITIONAL INFORMATION---- LDL cholesterol calculated using the Cody/NIH equation. Cholesterol, HDL, S 17(L) >=50 mg/dL 07/09/2024 7:15 AM PET SITTING DTL Cholesterol, Non-HDL, Calculated 76 mg/dL 07/09/2024 7:15 AM PET SITTING DTL Comment: ----REFERENCE VALUE---- Desirable: <130 mg/dL Above Desirable: 130-159 mg/dL Borderline High: 160-189 mg/dL High: 190-219 mg/dL Very High: > or =220 mg/dL Fasting (8 HR or more) Yes 07/09/2024 6:00 AM PET SITTING DTL Blood (Blood, Venous) 07/09/2024 6:00 AM PET SITTING 07/09/2024 6:41 AM PET SITTING us Lanette Solis APRN, C.N.P., M.S.N. LAB BLOOD ADD-ON Final Result [facility] [address] [place] [address], [facility] [address] [place] [address] * (ABNORMAL) Morphology Eval (special smear) (07/09/2024 6:00 AM PET SITTING) Only the most recent of2 resultswithin the time period is included. Neutrophilic Segs and Bands 72 50 - 75 % 07/09/2024 8:33 AM PET SITTING DHPM Lymphocytes 4(L) 18 - 42 % 07/09/2024 8:33 AM PET SITTING DH[facility] Monocytes 4 2 - 11 % 07/09/2024 8:33 AM PET SITTING [facility] Basophils 1 0 - 2 % 07/09/2024 8:33 AM PET SITTING [facility] Metamyelocytes 10(H) <1 % 07/09/2024 8:33 AM PET SITTING [facility] Myelocytes 8(H) <0.5 % 07/09/2024 8:33 AM PET SITTING DHPM Blasts 1(H) <1 % 07/09/2024 8:33 AM PET SITTING DHPM Megakaryocytes 2(H) <1 /100 WBC 07/09/2024 8:33 AM PET SITTING DHPM Nucleated RBC 77 /100 WBC 07/09/2024 8:33 AM PET SITTING DHPM Manual Absolute Neutrophil Count 18.50(H) 1.56 - 6.45 x10(9)/L 07/09/2024 8:33 AM PET SITTING [facility] Comment: ----ADDITIONAL INFORMATION---- The manual absolute neutrophil count is derived from a manual differential count and therefore is not exactly comparable to the automated absolute neutrophil count. Blood 07/09/2024 6:00 AM PET SITTING 07/09/2024 6:30 AM PET SITTING Lanette Solis APRN C.N.P., M.S.N. LAB BLOOD ADD-ON Final Result [facility] [address] [place] [address], [facility] [address] [place] [address] * (ABNORMAL) CBC with Differential, Blood (07/09/2024 6:00 AM PET SITTING) Only the most recent of15 resultswithin the time period is included. Hemoglobin 6.7(L) 11.6 - 15.0 g/dL 07/09/2024 6:39 AM PET SITTING DTL Hematocrit 22.3(L) 35.5 - 44.9 % 07/09/2024 6:39 AM PET SITTING DTL Erythrocytes 2.40(L) 3.92 - 5.13 x10(12)/L 07/09/2024 6:39 AM PET SITTING DTL MCV 92.9 78.2 - 97.9 fL 07/09/2024 6:39 AM PET SITTING DTL RBC Distrib Width 22.8(H) 12.2 - 16.1 % 07/09/2024 8:15 AM PET SITTING PM Platelet Count 417(H) 157 - 371 x10(9)/L 07/09/2024 6:39 AM PET SITTING DTL Leukocytes 25.7(H) 3.4 - 9.6 x10(9)/L 07/09/2024 8:32 AM PET SITTING [facility] Comment:Corrected for normob lasts. Neutrophils See Comment 1.56 - 6.45 x10(9)/L 07/09/2024 8:32 AM PET SITTING [facility] Comment:Auto-diff results no t valid. See manual differential. Blood (Blood, Venous) 07/09/2024 6:00 AM PET SITTING 07/09/2024 6:30 AM PET SITTING Lanette Solis APRN, C.N.P., M.S.N. LAB BLOOD ADD-ON Final Result Performing Organization Address [facility] de Phone Number [facility] [address] [place] [address], [facility] [address] [place], [place] [address] [place] [address] [address] [place] [address] * (ABNORMAL) S-TSH (Thyroid-Stimulating Hormone - Sensitive) (07/09/2024 6:00 AM PET SITTING) TSH, Sensitive 7.3(H) 0.3 - 4.2 mIU/L 07/09/2024 7:15 AM PET SITTING DTL Blood (Blood, Venous) 07/09/2024 6:00 AM PET SITTING 07/09/2024 6:41 AM PET SITTING Lanette Solis APRN, C.N.P., M.S.N. LAB BLOOD ADD-ON Final Result Performing Organization Address [facility] de Phone Number [facility] [address] [place], [place] [address] [address] [place] [address] * (ABNORMAL) Hemoglobin A1c (07/09/2024 6:00 AM PET SITTING) Hemoglobin A1c, B 7.4(H) 4.0 - 5.6 % 07/09/2024 6:49 AM PET SITTING DTL Comment: Hemoglobin A1c values greater than or equal to 6.5 percent are diagnostic for diabetes mellitus. Diagnosis should be confirmed by repeat testing. In diabetic patients, HbA1c goals should be discussed with healthcare provider. Blood (Blood, Venous) 07/09/2024 6:00 AM PET SITTING 07/09/2024 6:30 AM PET SITTING us Lanette Solis APRN, C.N.P., M.S.N. LAB BLOOD ADD-ON Final Result [facility] [address] [place] [address], [place] DTL [facility] [address] [place] [address] * (ABNORMAL) Comprehensive Metabolic Panel (07/09/2024 6:00 AM PET SITTING) Only the most recent of3 resultswithin the time period is included. Pathologist [facility] Potassium, S 5.3(H) 3.6 - 5.2 mmol/L 07/09/2024 7:15 AM PET SITTING DTL Sodium, S 143 135 - 145 mmol/L 07/09/2024 7:15 AM PET SITTING DTL Chloride, S 102 98 - 107 mmol/L 07/09/2024 7:15 AM PET SITTING DTL Bicarbonate, S 32(H) 22 - 29 mmol/L 07/09/2024 7:15 AM PET SITTING DTL Anion Gap 9 7 - 15 07/09/2024 7:15 AM PET SITTING DTL BUN (Blood Urea Nitrogen), S 41(H) 6 - 21 mg/dL 07/09/2024 7:15 AM PET SITTING DTL Creatinine 1.30(H) 0.59 - 1.04 mg/dL 07/09/2024 7:15 AM PET SITTING DTL Estimated GFR (eGFR) 48(L) >=60 mL/min/BS A 07/09/2024 7:15 AM PET SITTING DTL Comment: Estimated GFR calculated using the 2020 CKD_EPI creatinine equation. Calcium, Total, S 8.4(L) 8.6 - 10.0 mg/dL 07/09/2024 7:15 AM PET SITTING DTL Glucose, S 111 70 - 140 mg/dL 07/09/2024 7:15 AM PET SITTING DTL Protein, Total, S 5.8(L) 6.3 - 7.9 g/dL 07/09/2024 7:15 AM PET SITTING DTL Albumin, S 3.8 3.5 - 5.0 g/dL 07/09/2024 7:15 AM PET SITTING DTL Aspartate Aminotransferase (AST), S 50(H) 8 - 43 U/L 07/09/2024 7:15 AM PET SITTING DTL Alkaline Phosphatase, S 271(H) 35 - 104 U/L 07/09/2024 7:15 AM PET SITTING DTL Alanine Aminotransferase (ALT), S 42 7 - 45 U/L 07/09/2024 7:15 AM PET SITTING DTL Bilirubin, Total, S 1.3(H) 0.0 - 1.2 mg/dL 07/09/2024 7:15 AM PET SITTING DTL Blood (Blood, Venous) 07/09/2024 6:00 AM PET SITTING 07/09/2024 6:41 AM PET SITTING Lanette Solis APRN, C.N.P., M.S.N. LAB BLOOD ADD-ON Final Result Performing Organization Address [facility]/ZIP Co de Phone Number [facility] [address] [place] [address] * Thyroperoxidase (TPO) Antibodies (07/09/2024 5:55 AM PET SITTING) Thyroperoxidase Ab, S <15.0 <34.0 IU/mL 07/09/2024 9:10 AM PET SITTING DTL Blood 07/09/2024 5:55 AM PET SITTING 07/09/2024 8:39 AM PET SITTING Janeth Rojas P.A.-C. LAB BLOOD ADD-ON Final Resu lt Performing Organization Address City/[facility]/ZIP Co de Phone Number [facility] [address] [place] [address] * Fructosamine (07/09/2024 5:55 AM PET SITTING) Fructosamine, S 236 200 - 285 mcmol/L 07/09/2024 9:51 AM PET SITTING DTL Blood (Blood, Venous) 07/09/2024 5:55 AM PET SITTING 07/09/2024 9:23 AM PET SITTING Vanda Escamilla APRN.N.P., JuanNZahraaP. LAB BL OOD ADD-ON Final Result Performing Organization Address City/[facility]/ZIP Co de Phone Number [facility] [address] [place] [address] * (ABNORMAL) T3 (Triiodothyronine), Total (07/09/2024 5:55 AM PET SITTING) T3 (Triiodothyroni ne), Total, S 79(L) 80 - 200 ng/dL 07/09/2024 9:10 AM PET SITTING DTL Blood 07/09/2024 5:55 AM PET SITTING 07/09/2024 8:39 AM PET SITTING us Janeth Rojas P.A.-C. LAB BLOOD ADD-ON Final Resu lt Performing Organization Address [facility] Co de Phone Number [facility] [address] [place] [address] * T4 (Thyroxine), Free (07/09/2024 5:55 AM PET SITTING) T4 (Thyroxine), Free, S 1.3 0.9 - 1.7 ng/dL 07/09/2024 9:10 AM PET SITTING DTL Blood (Blood, Venous) 07/09/2024 5:55 AM PET SITTING 07/09/2024 8:39 AM PET SITTING Janeth Rojas P.A.-C. LAB BLOOD ADD-ON Final Resu lt Performing Organization Address City/[facility]/ZIP Co de Phone Number [facility] [address] [place] [address], [facility] [address] [place] [address] * DX Chest AP or PA and Lateral 2 Views (07/08/2024 6:30 PM PET SITTING) Anatomical Region Laterality Modality Chest, Thoracic RST LOS, Tho racic ARZ LOS, Thoracic FLA LOS N/A Digital Radiography Impressions 07/08/2024 7:13 PM PET SITTING Since 03/16/2022, interval development of mild interlobular septal thickening, increased prominence of the pulmonary vasculature, increased enlargement of the cardiac silhouette size consistent with mild pulmonary edema. New right lower lobe airspace opacity and small right pleural effusion may represent a superimposed infectious/inflammatory process. Linear subsegmental left lower lobe atelectasis or scarring. Elevated right hemidiaphragm. Narrative 07/08/2024 7:13 PM PET SITTING EXAM: DX CHEST AP OR PA AND LATERAL 2 VIEWS Procedure Note Sánchez Loving M.D. - 07/08/2024 EXAM: DX CHEST AP OR PA AND LATERAL 2 VIEWS IMPRESSION: Since 03/16/2022, interval development of mild interlobular septalthickening, increased prominence of the pulmonary vasculature, increasedenlargement of the cardiac silhouette size consistent with mild pulmonaryedema. New right lower lobe airspace opacity and small right pleural effusion may represent asuperimposed infectious/inflammatory process. Linear subsegmental leftlower lobe atelectasis or scarring. Elevated right hemidiaphragm. Lanette Solis APRN, C.N.P., M.S.N. IMG DIAGNO STIC IMAGING PROCEDURES Final Result * (ABNORMAL) NT-Pro B-Type Natriuretic Peptide (BNP) (07/08/2024 5:20 PM PET SITTING) NT-Pro BNP 7416(H) <=226 pg/mL 07/08/2024 6:21 PM PET SITTING DTL Comment: NT-proBNP values less than 300 [...] absence of renal failure. Blood (Blood, Venous) 07/08/2024 5:20 PM PET SITTING 07/08/2024 5:58 PM PET SITTING Lanette Solis APRN C.N.P., M.S.N. LAB BLOOD ADD-ON Final Result [facility] [address] [place] [address], [place] DTL [facility] [address] [place] [address] * HLA Class II Typing by High Resolution, Recipient (06/29/2024 12:51 PM PET SITTING) DRB1 - [address] Not Applicable 07/08/2024 2:05 PM PET SITTING DBB8 DRB1 - [address] Not Applicable 07/08/2024 2:05 PM PET SITTING DBB8 DRB1 - 1 Allele DRB1*09:01 Not Applicable 07/08/2024 2:05 PM PET SITTING DBB8 DRB1 - 2 Allele DRB1*12:01 Not Applicable 07/08/2024 2:05 PM PET SITTING DBB8 [id number] - [address] Not Applicable 07/08/2024 2:05 PM PET SITTING DBB8 TER394 - [address] Not Applicable 07/08/2024 2:05 PM PET SITTING DBB8 [id number] - 1 [place]le[place] DRB3*02:02 Not Applicable 07/08/2024 2:05 PM PET SITTING DBB8 HBT060 - 2 [place]lele DRB4*01:03 Not Applicable 07/08/2024 2:05 PM PET SITTING DBB8 DQB1 - 1 Equivalent DQ7 Not Applicable 07/08/2024 2:05 PM PET SITTING DBB8 DQB1 - 2 Equivalent DQ9 Not Applicable 07/08/2024 2:05 PM PET SITTING DBB8 DQB1 - 1 Allele DQB1*03:01 Not Applicable 07/08/2024 2:05 PM PET SITTING DBB8 DQB1 - 2 Allele DQB1*03:03 Not Applicable 07/08/2024 2:05 PM PET SITTING DBB8 DQA1 - 1 Allele DQA1*03:02 Not Applicable 07/08/2024 2:05 PM PET SITTING DBB8 DQA1 - 2 Allele DQA1*05:05 Not Applicable 07/08/2024 2:05 PM PET SITTING DBB8 DPB1 - 1 Allele DPB1*04:01 Not Applicable 07/08/2024 2:05 PM PET SITTING DBB8 DPB1 - 2 Allele DPB1*04:01 Not Applicable 07/08/2024 2:05 PM PET SITTING DBB8 DPA1 - 1 Allele DPA1*01:03 Not Applicable 07/08/2024 2:05 PM PET SITTING DBB8 DPA1 - 2 Allele DPA1*01:03 Not Applicable 07/08/2024 2:05 PM PET SITTING DBB8 DRB1 Unresolved Alleles DRB1*09:57 07/08/2024 2:05 PM PET SITTING DBB8 Test Method PCR - Next Generation Sequencing 07/08/2024 2:05 PM PET SITTING DBB8 Comment: ----ADDITIONAL INFORMATION---- Common, intermediate and well-documented (CIWD) HLA alleles are resolved or listed if not resolved. Listing of ambiguous rare alleles not resolved can be found in the corresponding unresolved field. (Albert ROSENBERG, Cesar J, Nolan K, et al. 2020; 1-16 https://doi.org/10.1111/GUEVARA.90448). For convenience, when not defined in the WHO Nomenclature a laboratory defined serologic equivalent has been provided. This test was developed and its performance characteristics determined by [facility] in a manner consistent with CLIA requirements. This test has not been cleared or approved by the U.S. Food and Drug Administration. CLIA: [id number] CLIA Public Defender: NIXON FLORENTINO,Ph.D. Blood (Blood, Venous) 06/29/2024 12:51 PM PET SITTING 06/29/2024 1:45 PM PET SITTING us Isidro Arrington, B.Ch. LAB HLA ORDERABLES F inal Result [facility] [address] [place] [address], [place] DBB8 [facility] [address] [place] [address] * HLA Class I Typing by High Resolution, Recipient (06/29/2024 12:51 PM PET SITTING) A - 1 Equivalent A2 Not Applicable 07/08/2024 2:04 PM PET SITTING DBB8 A - 2 Equivalent A24 Not Applicable 07/08/2024 2:04 PM PET SITTING DBB8 A - 1 Allele A*02:01 Not Applicable 07/08/2024 2:04 PM PET SITTING DBB8 A - 2 Allele A*24:02 Not Applicable 07/08/2024 2:04 PM PET SITTING DBB8 B - 1 Equivalent B44 Not Applicable 07/08/2024 2:04 PM PET SITTING DBB8 B - 2 Equivalent B51 Not Applicable 07/08/2024 2:04 PM PET SITTING DBB8 B - 1 Allele B*44:02 Not Applicable 07/08/2024 2:04 PM PET SITTING DBB8 B - 2 Allele B*51:01 Not Applicable 07/08/2024 2:04 PM PET SITTING DBB8 Bw - 1 Equivalent Bw4 Not Applicable 07/08/2024 2:04 PM PET SITTING DBB8 Bw - 2 Equivalent Bw4 Not Applicable 07/08/2024 2:04 PM PET SITTING DBB8 C - 1 Equivalent Cw5 Not Applicable 07/08/2024 2:04 PM PET SITTING DBB8 C - 2 Equivalent Cw14 Not Applicable 07/08/2024 2:04 PM PET SITTING DBB8 C - 1 Allele C*05:01 Not Applicable 07/08/2024 2:04 PM PET SITTING DBB8 C - 2 Allele C*14:02 Not Applicable 07/08/2024 2:04 PM PET SITTING DBB8 Test Method PCR - Next Generation Sequencing 07/08/2024 2:04 PM PET SITTING DBB8 Comment: ----ADDITIONAL INFORMATION---- Common, intermediate and well-documented (CIWD) HLA alleles are resolved or listed if not resolved. Listing of ambiguous rare alleles not resolved can be found in the corresponding unresolved field. (Albert ROSENBERG, Cesar J, Nolan K, et al. 2020; 1-16 https://doi.org/10.1111/GUEVARA.28073). For convenience, when not defined in the WHO Nomenclature a laboratory defined serologic equivalent has been provided. This test was developed and its performance characteristics determined by [facility] in a manner consistent with CLIA requirements. This test has not been cleared or approved by the U.S. Food and Drug Administration. CLIA: [id number] CLIA Public Defender: NIXON FLORENTINO,Ph.D. Blood (Blood, Venous) 06/29/2024 12:51 PM PET SITTING 06/29/2024 1:46 PM PET SITTING Narrative [facility] - 07/08/2024 2:04 PM PET SITTING Specimen Information: Specimen ID: [id number] Specimen Type: Blood Specimen Collection Start Date: 06/29/2024 12:51 PM Specimen Received Date: 06/29/2024 1:46 PM Specimen ID: [id number] Specimen Type: Blood Specimen Collection Start Date: 06/29/2024 12:51 PM Specimen Received Date: 06/29/2024 1:46 PM Specimen ID: [id number] Specimen Type: Blood Specimen Collection Start Date: 06/29/2024 12:51 PM Specimen Received Date: 06/29/2024 1:45 PM Isidro Arrington B.Ch. LAB HLA ORDERABLES F inal Result [facility] [address] [place] [address], [facility] DBB8 [facility] [address] [place] [address] * HLA Class I/II Combined cPRA, Serum (06/29/2024 12:51 PM PET SITTING) [facility] Class I/II Combined cPRA 2.98 Not Applicable 07/01/2024 10:20 AM PET SITTING DBB8 Comment: ----ADDITIONAL INFORMATION---- Calculated PRA (cPRA) is the percentage of donors expected to have HLA antigens listed as unacceptable for a candidate on the waiting list. Unacceptable antigens include serologic equivalents that have a normalized Mean Fluorescence Intensity (MFI) >= 2000 and antigens that demonstrate Prozone Phenomenon. The cPRA is calculated based on the HLA frequencies published by UNOS/OPTN listed here: http://optn.transplant.hrsa.gov CLIA: [id number] CLIA Public Defender: NIXON FLORENTINO,Ph.D. Combined cPRA Specificities see below 07/01/2024 10:20 AM PET SITTING DBB8 Comment:DP:14:01 Blood 06/29/2024 12:5 1 PM PET SITTING 06/29/2024 2:33 PM PET SITTING Isidro Arrington, B.Ch. LAB HLA ORDERABLES F inal Result [facility] [address] [place] [address], [facility] DBB8 [facility] [address] [place] [address] * HLA Antibody Summary Report (06/29/2024 12:51 PM PET SITTING) 06/29/2024 12:5 1 PM PET SITTING Narrative 07/01/2024 10:47 AM PET SITTING Ordered by an unspecified provider. Default Authenticator Jean LAB HLA ORDERABLES Fin al Result * Transplant ABO Confirmation (06/29/2024 12:51 PM PET SITTING) Pathologist [facility] Transplant ABO Confirmation A Pos 06/29/2024 1:57 PM PET SITTING ETRM Blood (Blood, Venous) 06/29/2024 12:51 PM PET SITTING 06/29/2024 1:21 PM PET SITTING us Isidro Arrington, B.Ch. LAB BLOOD BANK TEST ORDERABLES Final Result Performing Organization Address [facility]/ZIP Co de Phone Number [facility] [address] [place] [address], [facility] ETRM [facility] [address] [place] [address] * Cytomegalovirus Ab, IgM and IgG (06/29/2024 12:51 PM PET SITTING) Cytomegalovirus Ab, IgM, S Negative Negative 06/30/2024 8:52 AM PET SITTING [facility] Cytomegalovirus Ab, IgG, S Negative Negative 06/30/2024 8:52 AM PET SITTING [facility] Blood (Blood, Venous) 06/29/2024 12:51 PM PET SITTING 06/29/2024 4:15 PM PET SITTING Isidro Arrington, B.Ch. LAB MICROBIOLOGY - B LOOD ORDERABLES Final Result [facility] [address] [place] [address] [facility] [address] [place] [address] * HLA Class II SAB Antibody Screen (06/29/2024 12:51 PM PET SITTING) Class II SAB Overall Result Positive Not Applicable 07/01/2024 9:07 AM PET SITTING DBB8 Class II SAB >=5000 MFI NONE 07/01/2024 9:07 AM PET SITTING DBB8 Class II SAB 7123-2767 MFI see below 07/01/2024 9:07 AM PET SITTING DBB8 Comment:DP:14:01 Class II SAB 500-1999 MFI see below 07/01/2024 9:07 AM PET SITTING DBB8 Comment: DR:7 4 DQ:8 6 DP:1 10 SAB DRB1 Specificity see below 07/01/2024 9:07 AM PET SITTING DBB8 Comment: 7(07:01)[1414], 4(04:04)[518] Format: Serologic Eq.(DRB1 Mol. Allele)[Normalized MFI] NOTE: Data is displayed in descending order by Mean Fluorescence Intensity (MFI). Serologic equivalents can be displayed multiple times for different molecular alleles. SAB [id number] Specificity NONE 07/01/2024 9:07 AM PET SITTING DBB8 SAB DQB1 Specificity see below 07/01/2024 9:07 AM PET SITTING DBB8 Comment: 8(A*03:01;B*03:02)[1092], 8(A*02:01;B*03:02)[817], 6(A*01:03;B*06:01)[588] Format: Serologic Eq.(DQA1;DQB1 Mol. Allele)[Normalized MFI] NOTE: Data is displayed in descending order by Mean Fluorescence Intensity (MFI). Serologic equivalents can be displayed multiple times for different molecular alleles. SAB DPB1 Specificity see below 07/01/2024 9:07 AM PET SITTING DBB8 Comment: 14(A*02:01;B*14:01)[9794], 1(A*02:01;B*01:01)[939], 10(A*02:02;B*10:01)[715] Format: Serologic Eq.(DPA1;DPB1 Mol. Allele)[Normalized MFI] NOTE: Data is displayed in descending order by Mean Fluorescence Intensity (MFI). Serologic equivalents can be displayed multiple times for different molecular alleles. ----ADDITIONAL INFORMATION---- Method: Luminex Flow Cytometry CLIA: [id number] CLIA Public Defender: NIXON FLORENTINO,Ph.D. Blood (Blood, Venous) 06/29/2024 12:51 PM PET SITTING 06/29/2024 2:33 PM PET SITTING Isidro Arrington B.Ch. LAB HLA ORDERABLES F inal Result [facility] [address] [place] [address], [facility] DBB8 [facility] [address] [place] [address] * HLA Class I SAB Antibody Screen (06/29/2024 12:51 PM PET SITTING) Class I SAB Overall Result Negative Not Applicable 07/01/2024 9:03 AM PET SITTING DBB8 Class I SAB >=5000 MFI NONE 07/01/2024 9:03 AM PET SITTING DBB8 Class I SAB 1497-9788 MFI NONE 07/01/2024 9:03 AM PET SITTING DBB8 Class I SAB 500-1999 MFI NONE 07/01/2024 9:03 AM PET SITTING DBB8 SAB A Specificity NONE 07/01/2024 9:03 AM PET SITTING DBB8 SAB B Specificity NONE 07/01/2024 9:03 AM PET SITTING DBB8 SAB C Specificity NONE 07/01/2024 9:03 AM PET SITTING DBB8 Comment: ----ADDITIONAL INFORMATION---- Method: Luminex Flow Cytometry CLIA: [id number] CLIA Public Defender: NIXON FLORENTINO,Ph.D. Blood (Blood, Venous) 06/29/2024 12:51 PM PET SITTING 06/29/2024 2:33 PM PET SITTING us Isidro Arrington, B.Ch. LAB HLA ORDERABLES F inal Result Performing Organization Address [facility] de Phone Number [facility] [address] [place], [place] [address] DBB8 [facility] [address] [place] [address] * (ABNORMAL) Iron and Total Iron-Binding Capacity (06/29/2024 12:51 PM PET SITTING) Iron 192(H) 35 - 145 mcg/dL 06/29/2024 2:01 PM PET SITTING DTL Total Iron Binding Capacity 178(L) 250 - 400 mcg/dL 06/29/2024 2:01 PM PET SITTING DTL Percent Saturation >90(H) 14 - 50 % 06/29/2024 2:01 PM PET SITTING DTL Blood (Blood, Venous) 06/29/2024 12:51 PM PET SITTING 06/29/2024 1:34 PM PET SITTING us Isidro Arrington, B.Ch. LAB BLOOD ADD-ON Fin al Result Performing Organization Address [facility] de Phone Number [facility] [address] [place] [address], [facility] DTL [facility] [address] [place] [address] * (ABNORMAL) Ferritin (06/29/2024 12:51 PM PET SITTING) Ferritin, S 7389(H) 11 - 328 mcg/L 06/29/2024 2:21 PM PET SITTING DTL Blood (Blood, Venous) 06/29/2024 12:51 PM PET SITTING 06/29/2024 1:34 PM PET SITTING us Isidro Arrington, B.Ch. LAB BLOOD ADD-ON Fin al Result [facility] [address] [place] [address], [facility] DTL [facility] [address] [place] [address] * Myeloid Neoplasms, Comprehensive OncoHeme Next-Generation Sequencing (06/11/2024 2:00 PM PET SITTING) Specimen Type Bone marrow 06/21/2024 3:32 PM PET SITTING DTL Indication for Test Chronic myeloid neoplasm 06/21/2024 3:32 PM PET SITTING DTL NGSHM Result See Interpretation 03/2024 3:32 PM PET SITTING DTL Pathogenic Mutations Detected 1) CALR: Chr19(GRCh37):g.1305 [id number]_13054628insTTGT C; NM_004343.3(CALR):c. 1154_1155insTTGTC; p.Hxv341Cqnwi*47 (49%) 2) SF3B1: Chr2(GRCh37):g.14854 6834T>C; NM_012433.2(SF3B1):c .2098A>G; p.Gib125Rol (51%) No other pathogenic mutations were detected in the other genes tested on the panel at the reportable limit of assay detection. See below for Variants of Unknown Significance and Additional Notes. Please see the section of Panel Gene List below for the complete list of genes tested. 06/21/2024 3:32 PM PET SITTING D[facility] Clinical Trials Information regarding possible clinical trials for this patient can be found at the following sites: 1). ClinicalTrials.gov: http://clinicaltrial s.gov/ct2/search/adv anced 2). [facility]: [email or web address].[facility]/ research/clinical-tr ials 3). [facility] [place]: http://www.cancer.go v/clinicaltrials/[facility] 4). [employer]'s Clinical Trial Support Center https://www.hematolo gy.org/education/cli nicians/clinical-tri vg-nbrxuyf-yjnlqe 06/21/2024 3:32 PM PET SITTING DTL Variants of Unknown Significance (VUS) None 06/21/2024 3:32 PM PET SITTING DTL Additional Information None 06/21/2024 3:32 PM PET SITTING DTL Method DNA is extracted from peripheral blood or bone marrow specimens. Library preparation for Next Generation Sequencing (NGS) is performed followed by probe hybridization and capture. Sequencing of the final sample library is performed on a NGS instrument. Following bioinformatic processing of the sequencing data, the sequencing results are interpreted to provide a final clinical report. Genomic alterations are called according to human genome reference build GRCh37 (hg19). Performance characteristics of NGS panel: Single base substitutions: accuracy >99%; reproducibility 100% (intra- and interassay); sensitivity 2-4% variant allele fraction with a minimum depth of coverage of 500X. Small insertion/deletion events (up to 500 bp): accuracy >99%; reproducibility 100% (intra- and interassay); sensitivity 2-4.99% variant allele fraction with a minimum depth of coverage of 500X. Larger single gene insertion/deletion events with sizes between > or = 501 bp and < or = 5 kb with a variant allele fraction > or = 5% and minimum depth of coverage of 500X* will be reported. Variants involving multiple genes or single gene events > or = 1 kb with variant allele fractions between 2-5% will not be reported. Events > or = 5 kb with a variant allele fraction > or = 5% within a single gene may be identified and if present, general information on gene, chromosome, and event type will be provided in the Additional Notes section, with suggestion for confirmatory testing. This test was developed and its performance characteristics determined by [facility] in a manner consistent with CLIA requirements. This test has not been cleared or approved by the U.S. Food and Drug Administration. *Some genetic or genomic alterations such as very large insertion/deletion events, copy number alterations (FRAME GATE MORTISER OPERATOR) and gene translocation events are not detected by this assay. 06/21/2024 3:32 PM PET SITTING DTL Disclaimer CLINICAL DISCLAIMER The finding of a genetic alteration does not necessarily indicate the presence of a myeloid neoplasm. Some apparent mutations classified as VUS may represent very low population frequency polymorphisms. Hematopoietic cells in some individuals may have age-related genetic alterations associated with myeloid neoplasms in the absence of a hematologic malignancy (clonal hematopoiesis of indeterminate potential, CHIP, also known as age-related clonal hematopoiesis, ARCH). In addition, patients with unexplained cytopenias may also harbor similar myeloid neoplasm-associated gene mutations (clonal cytopenias of uncertain significance, CCUS) [PMIDs: 85652289, [id number], [id number], and [id number]]. Distinction between CHIP or CCUS and a myeloid malignancy requires correlation with clinical, pathologic, and other laboratory findings. Prior treatment for hematologic malignancy could affect the results obtained in this assay. In particular, prior allogeneic hematopoietic stem cell transplant (HSCT) may cause difficulties in resolving somatic or polymorphic alterations, or in assigning variant calls correctly to donor and recipient fractions, if pertinent clinical or laboratory information (e.g. chimerism engraftment status) is not provided. This assay does not distinguish between somatic and germline alterations in analyzed gene regions, particularly with VAF near 50% or 100%. If nucleotide alterations in genes associated with germline mutation syndromes are present and there is also a strong clinical suspicion or family history of malignant disease predisposition, additional genetic testing and appropriate counseling may be indicated. This report interpretation is based on current medical and scientific literature, but clinical significance may not be completely established for all reported target gene abnormalities identified. Correlation with clinical, histopathologic and additional laboratory findings is required for final interpretation of these results. The final interpretation of results for clinical management of the patient is the responsibility of the managing physician. TECHNICAL DISCLAIMER The depth of sequencing coverage may be variable for some target regions, but assay performance below the minimum acceptable criteria, or for failed regions are noted. Analysis of rare (low allele frequency) polymorphisms may be problematic in some cases. A low tumor cell percentage in the sample may affect the true mutation VAF and/or sensitivity. Suboptimal-performin g regions (i.e. less than the expected minimum depth of coverage) may affect analytic sensitivity for detecting lower level mutations. This is a qualitative test. The variant read fractions are provided for information only and represent a relative proportion of mutated alleles, but do not indicate a measure of analytical sensitivity for the given genes; assay sensitivity is as stated in the method summary. Some genetic or genomic alterations, such as very large insertion/deletion events, copy number alterations (FRAME GATE MORTISER OPERATOR) and gene translocation events are not detected by this assay. 06/21/2024 3:32 PM PET SITTING DTL OncoHeme Panel Gene list [id number] (NM_014915.2) 5'UTR, start at c.-172, exons 1-4, ASXL1 (NM_015338.5) exons 10-13, BCOR (NM_001123385.1) exons 4-15, BCORL1 (NM_001184772.2) exons 1-13, BRAF (NM_004333.4), exons 11 and 15, CALR (NM_004343.3) exon 9, CBL (NM_005188.3) intron 7 last 100bp before start of exon 8, exon 8, intron 8, and exon 9, CEBPA (NM_004364.4) exon 1, CSF3R (NM_000760.3) exons 4, 13-14 and 17, DDX41 (NM_016222.2) exons 1-17, DNMT3A (NM_022552.4) exons 8-23, ELANE (NM_001972.2) exons 1-5, ETNK1 (NM_018638.4) exons 2-5, ETV6 (NM_001987.4) exons 3-8, EZH2 (NM_004456.4) exons 2-20, FLT3 (NM_004119.2) exons 14-20 and intron 14, GATA1 (NM_002049.3) exons 2 and 4, start at c.-19-30 before exon 2, GATA2 (NM_032638.4) exons 1-6, intron 4, c.1017+1 - 1017+870, IDH1 (NM_005896.3) exons 4, 6-8, IDH2 (NM_002168.3) exons 3-4, 6-8, JAK2 (NM_004972.3) exons 12-20, KDM6A (UTX) (NM_021140.3) exons 1-29, KIT (NM_000222.2) exons 8-11 and 17, KRAS (NM_033360.3) exons 2-4, MPL (NM_005373.2) exons 1-12, NF1 (NM_001042492.2), exons 1-58, NPM1 exons 9-11, intron 10 start 3 bp before exon 11, NRAS (NM_002524.4) exons 2-4, PHF6 (NM_001015877.1) exons 2-10, PPM1D (NM_003620.3) exons 1-6, PTPN11 (NM_002834.3) exons 3-4 and 12-13, RAD21 (NM_006265.2) exons 1-2, 4-7, 9-11, 13-14, intron 9 start 3 bp before exon 10, RUNX1 (NM_001754.4) exons 1-9, intron 7 start 13 bp before exon 8, SETBP1 (NM_015559.2) partial exon 4; amino acids 400 - 950, SH2B3 (LNK) (NM_005475.2) exon 2-8, SF3B1 (NM_012433.2) exons 13-16, SMC3 (NM_005445.3) exons 7-8, 13, 17, 19, 21, and 29, SRSF2 (NM_003016.4) exons 1-2, STAG2 (NM_001042750.1) exons 4-34, exons 12 and 17 start at -3 in preceding introns, STAT3 (NM_139276.2), exons 2-24, TERT (NM_198253.2) exons 2-16, TET2 (NM_001127208.2) exons 3-11, TP53 (NM_000546.4) exons 4-11, U2AF1 (NM_001025203.1) exons 2, 6, and 8, UBA1 (NM_003334.3) exons 2-26, WT1 (NM_024426.2) exons 1-10, and ZRSR2 (NM_005089.3) exons 1-11. Unless otherwise noted, intronic coverage surrounding exons is +/-10 bp. For some genes, the transcript IDs used in this analysis may differ from those present in cancer mutation databases or other similar sources. Variants will be reported out using HGVS nomenclature per the documentation version available at varnomen.hgvs.org at the time of the report. 06/21/2024 3:32 PM PET SITTING DTL Released by Signing Pathologist: Linda Ardon 06/21/2024 3:32 PM PET SITTING DTL Interpretation These results are considered ancillary findings and require complete integration with the current pathology case [id number] for final interpretation. The result should NOT be interpreted in isolation for the purposes of diagnosis or clinical management. 1) CALR: Chr19(GRCh37):g.1305 4627_13054628insTTGT C; NM_004343.3(CALR):c. 1154_1155insTTGTC; p.Xid245Zxcjo*47 Normal gene/protein function: The CALR gene, located on chromosome 19p13.2, encodes for calreticulin, a multifunctional protein playing roles in endoplasmic reticulum (ER) protein folding, calcium homeostasis, cellular proliferation, apoptosis and immunogenic cell (Callie et al., 2013, 34764285). Mutation effect: The p.Fwj064Dakuu*47 frameshift alteration results in a 5 base-pair (bp) insertion, and is the second most common type of somatic CALR mutation (type 2, approximately 32%) seen in myeloproliferative neoplasms (MPN). Pathogenic somatic CALR mutations in MPN reported to date are exon 9 frameshift insertions and/or deletions (indels). They generate the same alternative reading frame resulting in a mutant protein with a C-terminus neoepitope (Jocy et al., 2013, 87411714; Callie et al., 2013, 49155956; Asya et al., 2019, 20871701). CALR mutations have been identified in the neoplastic hematopoietic stem and progenitor cells. The mutant CALR protein has been shown to bind and constitutively activate MPL and the downstream ELSI-STAT pathway. The interaction between the mutant CALR and MPL occurs presumptively through a CALR conformational change induced by the C-terminus neoepitope (Araki et al., 2016, 39165705; 2017, 20456370; Makenna et al., 2016, 60929889). It has been reported that CALR type 1/like and type 2/like mutants were sufficient to induce a MPN phenotype in retroviral mouse models (Nestor et al., 2016, 81854046; Wang et al., 2019, 87838648). Disease associations: Frameshift indel mutations in CALR are the second most frequent somatic mutation after JAK2 in primary myelofibrosis (PMF) and essential thrombocythemia (ET) patients. CALR mutations are essentially mutually exclusive with JAK2 or MPL mutations and are observed at a frequency of approximately 49-88% in JAK2 and MPL mutation negative PMF and ET, but are not found in polycythemia vera (PV). CALR mutation is associated with decreased risk of thrombosis in both ET and PMF, and showed a favorable impact on survival in PMF patients. CALR mutations are also identified at significantly lower frequencies in other myeloid neoplasms such as refractory anemia with ring sideroblasts associated with marked thrombocytosis (13%), myelodysplastic syndrome (8%), chronic myelomonocytic leukemia (3%) or atypical chronic myeloid leukemia (3%)(Jocy et al., 2013, 86643362; Callie et al., 2013, 34327427; Kaye et al., 2014, 16748529; Rotlouisao et al., 2014, 02852799; Tefferi et al., 2014, 92828591). Therapeutic implications: Currently, there is no therapy directly targeting CALR mutations in myeloproliferative neoplasm patients. However, two kinase inhibitors, ruxolitinib and fedratinib, have been FDA-approved for the treatment of myelofibrosis (MF) regardless of molecular marker status (https://www.nccn.or g/professionals/phys ician_gls/pdf/mpn.pd f). Specifically, the JAK1/2 inhibitor ruxolitinib is FDA-approved for treatment in adult patients with intermediate or high-risk MF, including primary MF, post-polycythemia vera MF, and post-essential thrombocythemia MF, or in adult patients with polycythemia vera and inadequate response to or intolerance of hydroxyurea (https://www.accessd betzaida.fda.gov/drugsatf da_docs/label/ 08515g470atv.pdf). Ruxolitinib demonstrated efficacy in improving constitutional symptoms and reducing spleen size (Connie et al., 2012, 72465878; Henok et al., 2012, 59052074). In a phase 2 clinical trial, it demonstrated modest antileukemic activity as a single agent in patients with refractory post-MPN AML (Gloria et al., 2012, 13088160). The FDA has also approved fedratinib, a JAK2 inhibitor that reduces phosphorylation of STAT3/5, for the treatment of adults with intermediate-2 or high-risk primary or secondary MF (i.e. post-polycythemia vera or post-essential thrombocythemia MF) (https://www.accessd betzaida.fda.gov/drugsatf da_docs/label/ 76296s226gza.pdf) 2) SF3B1: Chr2(GRCh37):g.99079 6834T>C; NM_012433.2(SF3B1):c .2098A>G; p.Zrp542Ggx Normal gene/protein function: The SF3B1 gene, located on chromosome 2q33.1, encodes subunit 1 of the splicing factor 3b protein complex. This complex is a member of the RNA spliceosome and is involved in 3' splice site recognition and pre-mRNA processing during gene cashier host/hostess (Milo et al., 2014, 67375079; Natanael et al., 2013, 88895846; Kassie et al., 2011, 16129654). Mutation effect: The missense c.2098A>G (p.K700E) variant occurs commonly in hematologic neoplasms and accounts for more than half of somatic SF3B1 mutations. Mutations in SF3B1 contribute to tumorigenesis in hematologic malignancies through induction of abnormal cashier host/hostess and alternative gene splicing (Milo et al., 2014, 30429006; Natanael et al., 2013, 75304908; Kasise et al., 2011, 41082781). Disease associations: Somatic mutations in SF3B1 have been identified in both myeloid and lymphoid tumors with similar mutation distribution (Natanael et al., 2013, 42869308; Colin and Garibay, 2013, 25839193; Pamela et al., 2011, 17328524; Janine et al., 2011, 63954053). SF3B1 is mutated in 20-28% of myelodysplastic syndrome (MDS) and is particularly prevalent (>80%) in MDS with ring sideroblasts (MDS-RS) and the myeloproliferative/m yelodysplastic neoplasm refractory anemia with ring sideroblasts associated with marked thrombocytosis (MDS/MPN-RS-T)(Richard sands and You, 2015, 06205531; Janine et al., 2015, 40554775; Chase et al.,2013, 82458265). The majority of studies showed good prognosis in IQ9Q3-vvjnkew low-risk MDS(Malcohectorti et al., 2015, 61580539; Malcovati et al., 2014, 94125441; Hattie et al., 2015, 47107238; Natanael et al., 2013, 50859575; Mame and You, 2015, 81719664). LM4G6-zrjmwg MDS has been proposed as a distinct disease subtype by the International Working Group for the Prognosis of MDS with specified diagnostic and exclusion criteria (Janine et al., 2020, 33636701). In acute myeloid leukemia (AML), SF3B1 mutations are seen in approximately 11% of secondary AML and only 1% of de moe AML; they are highly associated with secondary AML and a worse clinical outcome (Zully et al., 2015, 93612527). In chronic lymphocytic leukemia (CLL), SF3B1 mutations are seen in approximately 10-15% of cases and are more commonly associated with advanced disease and poor prognosis (Colin and Garibay, 2013, 91293797; Natanael et al., 2013, 45726687). Therapeutic implications: There is no currently available therapy directly targeting spliceosome mutations. However, in adult patients with very low- to intermediate-risk MDS-RS or MDS/MPN-RS-T, Luspatercept-aamt, a recombinant fusion protein that binds TGF-beta superfamily ligands and reduces Smad2/3 signalling, was approved by the Food and Drug Administration (10/2019) for the treatment of anemia failing an erythropoiesis stimulating agent and requiring 2 or more red blood cell (RBC) units over 8 weeks (https://www.fda.gov /drugs/resources-inf wilchmlg-cqmcfarz-ab ugs/guo-yicqubgk-p drrydezpdny-zsbi-xkm mmn-htllzu-bbc). 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 06/25/2024 3:31 PM PET SITTING DTL Additional Information Previous Studies DATE SPECIMEN RESULT 06/01/2020 Marrow 13q- in metaphases 06/06/2021 Marrow 13q- in 1620 metaphases A portion of the testing process was performed at [facility] site [id number]. 06/25/2024 3:31 PM PET SITTING DTL Released by Allison Capellan, Ph.D. 06/25/2024 3:31 PM PET SITTING DTL Interpretation The result is abnormal. 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 This test was ordered in the context of a [facility] pathology consultation/ca se (#[id number]), and this result should be interpreted within the context of the pathology consultation/re port. 06/25/2024 3:31 PM PET SITTING DTL Bone Marrow 06/11/2024 2:00 PM PET SITTING 06/12/2024 8:11 AM PET SITTING Janusz Ardon LAB GENETIC TESTING Ese l Result [facility] [address] [place] [address], [facility] [address] [facility] [address] [place] [address] * [place] DX BONE MARROW BX & ASPIR (06/11/2024 2:00 PM PET SITTING) Bone Marrow Narrative [facility]ODAL - 06/11/2024 2:00 PM PET SITTING Benja Worrell R.N. 06/11/2024 2:15 PM Biopsy Bone Marrow, Sedated Performed by: Benja Worrell R.N. Authorized by: Janusz Govea M.B.B.SZahraa Care team members present 1. Benja Worrell R.N. 2. Remberto Ward MLS([facility]) PROCEDURE DETAILS Procedure: Bone Marrow biopsy and Bone Marrow aspiration Bone marrow biopsy Laterality: Right Location of biopsy: Posterior iliac crest Patient position: Side lying Type of Needle: Manual bone marrow biopsy needle Findings: Slides obtained and aspirate obtained with spicules noted Bone marrow aspiration Aspirate volume (mL): 18 CONSENT Consent obtained: written (Risks, benefits and alternatives were discussed and a written Informed Consent was obtained. Please see Informed Consent form for further details.) UNIVERSAL PROTOCOL All relevant documentation and testing were reviewed and available. All required blood products, implants, devices and or special equipment were made available as applicable. Pre-procedure verification was conducted and the correct site was marked if required. A fire risk and smoke assessment were done as applicable. The procedural time-out to [...] lidocaine POST-PROCEDURE DETAILS Procedure completed successfully: yes Complications: no apparent complications Post-procedure instructions: Post-procedure activity instructions provided COMMENTS Lidocaine 1% 200 mg. [employer] M.B.B.S. PROCEDURE/MINOR SURGICAL ORDERABLES Final Result MMODAL NA * (ABNORMAL) LD (Lactate Dehydrogenase) (06/11/2024 12:45 PM PET SITTING) Lactate Dehydrogenase (LD), S 763(H) 122 - 222 U/L 06/11/2024 2:03 PM PET SITTING DTL Blood (Blood, Venous) 06/11/2024 12:45 PM PET SITTING 06/11/2024 1:23 PM PET SITTING [employer] M.B.B.S. LAB BLOOD NON ADD-ON Fin al Result [facility] [address] [place] [address], [place] [facility] [address] [place] [address] * Hematopathology (06/11/2024 12:00 AM PET SITTING) 06/14/2024 2:01 PM [facility] Report electronically signed by Kristian Feliz M.D. I verify that I have examined all relevant slides/materials for the specimen(s) and rendered or confirmed the diagnosis. 06/14/2024 2:01 PM [facility] Gross Description B: Core biopsy specimens were received in B5 and were subsequently placed in formalin. Received in formalin labeled with the patient's name, medical record number, and bone marrow biopsy is one guevara-brown bone marrow core, measuring 2.3 cm in length and 0.3 cm in diameter. The core is bisected and submitted entirely in cassette B1. The specimen was decalcified prior to processing. Grossed by JUAN CARLOS. C: Received in formalin labeled with the patient's name, medical record number, and bone marrow clot is a 3.0 x 1.0 x 0.5 cm aggregateof dark red bone marrow clot material. The specimen is submitted en toto in cassette C1. Grossed by MBCain. 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 See cytogenetics report for complete details. Signed by Kristian Feliz M.D. 06/28/2024 12:59 PM ADDENDUM Molecular analysis for next generation sequencing (NGSHM), bone marrow ([id number]; 06/11/2024): Pathogenic Mutations Detected: 1) CALR: Chr19(GRCh37):g.90280 627_13054628insTTGTC; NM_004343.3(CALR):c.1 154_1155insTTGTC; p.You676Iycmo*47 (49%) 2) SF3B1: Chr2(GRCh37):g.332302 834T>C; NM_012433.2(SF3B1):c. 2098A>G; p.Pkn880Iwy (51%) No other pathogenic mutations were detected in the other genes tested on the panel at the reportable limit of assay detection. See full report for details. Please see the section of Panel Gene List in the full report for the complete list of genes tested. Variants of Uncertain Significance: None The VUS variants listed here (with approximate variant allele %) are not sufficiently characterized in the current literature and are therefore of uncertain clinical significance at this time. They are reported here for future reference in the event they become clinically significant in the light of new scientific data. Molecular Hematopathology studies interpreted by Murphy HagenB.S. Signed by Maureen Barbour M.D., Ph.D. 06/22/2024 9:23 AM 06/28/2024 12:59 PM [facility] Comment:REVISED RESULTS Interpretation FINAL DIAGNOSIS Peripheral blood, bone marrow aspirate and biopsy, iliac crest: Persistent chronic myeloid neoplasm, no increase in bone marrow blasts. Increased reticulin fibrosis (MF-3) and osteosclerosis. MICROSCOPIC DESCRIPTION Peripheral Blood: CBC - 06/11/2024 12:45:00 PM HGB 7.6 g/dL; RBC 2.65 x10(12)/L; MCV 94.7 fL; RDW 24.6 %; WBC 38.6 x10(9)/L; PLT 584 x10(9)/L Cell % of Total Cells NEUTROPHILS 71 LYMPHOCYTES 6 MONOCYTES 9 EOSINOPHILS 1 BASOPHILS 1 METAMYELOCYTES 7 MYELOCYTES 5 PROMYELOCYTES 0 BLASTS 0 OTHER CELLS 0 NRBC 80 Total Cells: 100 Peripheral Smear: Leukoerythroblastic blood picture. Hypogranular platelets. Bone Marrow Aspirate/Touch Imprint/Biopsy: Aspirate quality: Platelet psuedoparticles. Biopsy quality: Adequate. Cellularity: Hypercellular, 100%. Erythroid precursors: Increased quantity. Abnormal morphology (coarse basophilic shaping; terminal budding and blebbing). Myeloid precursors: Normal quantity. Normal morphology. Blasts not increased. Megakaryocytes: Increased quantity. Abnormal morphology (hyperchromatic; hyperlobated). Lymphocytes: No morphologic abnormalities. Plasma cells: Not increased. Other: Osteosclerosis. ANCILLARY STUDIES Iron stain, bone marrow aspirate: Unable to assess storage iron; sideroblasts present; ring sideroblasts present (>90% of nRNCs). Reticulin stain, bone marrow biopsy: Increased, MF-3. Cytogenetic analysis, bone marrow aspirate: Sample has been forwarded for testing. See separate report. Molecular analysis for Myeloid Neoplasms, NGS, bone marrow aspirate: Sample has been forwarded for testing. See separate report. 06/28/2024 12:59 PM PET SITTING DHPM 06/11/2024 06/11/2024 1:3 3 PM PET SITTING Janusz Ardon LAB SURG PATH ORDERABLES Edited Result - Final [facility] [address] [place] [address], [facility] [address] [place] [address] * NITRIC OXIDE STUDY, RIGHT HEART CATHETERIZATION [...] CV CARDIAC CATH PROCEDURES Final Result * (ABNORMAL) Morphology Evaluation (04/26/2024 2:25 PM [...] M.D. LAB BLOOD ADD-ON Final Resu lt [facility] [address] [place] [id number], [facility] CNFL [facility] in [address] [address] * (ABNORMAL) Manual Differential, Blood (04/26/2024 2:25 [...] M.D. LAB BLOOD ADD-ON Final Resu lt [facility] [address] [place] [address], [facility] [place] [address] * CT Chest Angiogram with IV Contrast (06/07/2021 10:15 AM PET SITTING) Anatomical Region Laterality Modality Chest, Cardiovascular RST LO S, Thoracic ARZ LOS, Thoracic FLA LOS, Vascular Interventional ARZ LOS N/A Computed Tomography, Compute d Tomography 06/07/2021 10:3 8 AM PET SITTING Impressions 06/07/2021 11:28 AM PET SITTING 1. No acute pulmonary emboli. 2. Scattered groundglass opacities and mosaic attenuation throughout the lungs. Findings can be compatible with an infectious/inflammatory process versus pulmonary edema. 3. Small left pleural effusion and pericardial effusion. 4. Partially visualized abdominal ascites. Narrative 06/07/2021 11:28 AM PET SITTING EXAM: CT CHEST ANGIOGRAM WITH IV CONTRAST [...] pericardial effusion. 4. Partially visualized abdominal ascites. Laurita Lopez P.A.-C. [facility] D[place] Final Result from Last 3 Months or Most Recently Relevant to Health Maintenance Insurance MEDICARE [facility] Advance Directives For more information, please contact: [phone] * Full Code (Latest Code Status on File) Date Activated Date Inactivated Comments 07/08/2024 4:45 PM 07/16/2024 3:44 PM Question Answer Comments Full Code: Discussed * Full Code Date Activated Date Inactivated Comments 03/13/2022 8:14 PM 03/18/2022 12:42 PM Question Answer Comments Full Code: Discussed * Full Code Date Activated Date Inactivated Comments 06/06/2021 1:51 PM 06/11/2021 6:52 PM Question Answer Comments Full Code: Discussed Care Teams Apparatus Engineering Technologist Relationship Specialty Start Date End Date Elsewhere, Pcp PCP - General Internal Medicine 01/30/24
--- OUTSIDE RECORDS SUMMARY | 2024-07-21 11:41 | XMS_ITS | Clinical Summary ---
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 For routine questions regarding patient records, call [phone] during business hours, M-F 8:00 AM - 5:00 PM Central Time. Record requests for emergency care only can be directed to [phone] at any time.[facility] Allergies No known active allergies Medications * [...] mouth 2 (two) times a day. 09/16/19 Active morphine (MS CONTIN) 15 mg ER tablet TAKE 1 TABLET BY MOUTH EVERY 12 HOURS FOR PAIN 11/16/19 Active sildenafil (REVATIO) 20 mg tablet Take [...] Indication: Acute Pain Exception. 8 tablet 03/25/20 22 024 Discontinued buPROPion XL (WELLBUTRIN XL) 150 mg 24 hr tablet Take 150 mg by mouth daily. 11/23/19 024 Discontinued(D iscontinued by another clinician) RX WELCOME PACKET-SPECIALT Y-OP ONLY Welcome packet 1 each 4 2:07 PM TECHNICAL SUPPORT 1 SOFTWARE ENGINEER 07/18/19 024 Discontinued predniSONE (Deltasone) 20 mg tablet Take 1 tablet by mouth 2 (two) times a day. 11/11/19 024 Discontinued torsemide (Demadex) 20 mg tablet Take 2 tablets (40 mg total) by mouth 2 (two) times a day. 120 tablet 03/05/20 025 Discontinued(S top Taking at Discharge) danazoL (Danocrine) 200 mg capsule Take 1 capsule (200 mg total) by mouth 2 (two) times a day. 60 capsule 3 06/16/20 025 Discontinued(S top Taking at Discharge) medical cannabis tablet Take 1 tablet by mouth every 8 (eight) hours as needed (pain). 024 Discontinued torsemide 60 mg tablet Take 60 mg by mouth 2 (two) times a day before morning and evening meals. 180 tablet 07/16/19 025 Discontinued(F ormulary change) torsemide (Demadex) 20 mg tabletIndicatio ns:Fluid Overload Unspecified,Hyp ertension Pulmonary (HCC) Take 3 tablets (60 mg total) by mouth 2 (two) times a day with meals. 180 tablet 07/20/19 025 Discontinued(R eorder) Active Problems Patient Care [...] follow up with your provider, Contact RN urgent care nurse practitioner for sudden weight gain or worsening symptoms/side effects, and Contact EMS for emergent conditions Current functional limitations: Class III: symptoms with less than ordinary physical activity and significant limitations with physical activity Assistive devices/DME used: Current Community Resources: outpatient lab, [facility] Problem Noted Date Diagnosed Date Myelofibrosis 04/06/2024 Secondary Pulmonary Arterial Hypertension 2022 Anemia Of Chronic Disease 03/12/2022 Chronic Pain Syndrome 03/12/2022 Dyspnea On Exertion 06/29/2021 Overview (06/29/2021): Added automatically from request for surgery [id number] Hypertension Pulmonary 06/11/2021 Hyperuricemia 06/08/2021 Edema 06/08/2021 Elevated Creatinine 06/08/2021 Gastroesophageal Reflux Disease 06/08/2021 Splenomegaly Acquired 06/06/2021 Overview (06/06/2021): Added automatically from request for surgery [id number] Pancytopenia 06/06/2021 Fluid Overload Unspecified 06/06/2021 Anxiety 06/06/2021 Insomnia 06/06/2021 Tachycardia Sinus 06/06/2021 Hyperphosphatemia 06/06/2021 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 Fluid Overload Unspecified; Hypertension Pulmonary (HCC) 07/20/2024 Orders Only Department of Cardiovascular Medicine in [address] [address] Fernando Schmidt, P.A.-C. Fluid Overload Unspecified (Primary Dx); Hypertension Pulmonary (HCC) 07/20/2024 Clinical Communication Department of Cardiovascular Medicine in [place], [place] [address] [place] [address] Matthew Mayes M.D. Symptom Assessment 07/19/2024 Documentation Division of Hematology in [place], [place] [address] [place] [phone] Janusz Govea M.B.B.S. 07/19/2024 Clinical Communication Pharmacy Prior Auth [id number] Jolene Vargas APRN, C.N.P. Rx Prior Authorization (Torsemide 60 mg tablet) 07/19/2024 Clinical Communication Division of Hematology in [place], [place] [address] [place] [address] Janusz Govea M.B.B.S. Anxiety 07/16/2024 Clinical Communication Pharmacy Prior Auth [id number] Alon Kenney 07/15/2024 10:13 AM TECHNICAL SUPPORT 1 SOFTWARE ENGINEER - 07/15/2024 11:13 AM TECHNICAL SUPPORT 1 SOFTWARE ENGINEER Surgery Division of Cardiovascular Diseases in [address] [address] Ritesh Ortiz M.D. HEART CATHETERIZATION - RIGHT 07/08/2024 4:28 PM TECHNICAL SUPPORT 1 SOFTWARE ENGINEER - 07/16/2024 1:44 PM TECHNICAL SUPPORT 1 SOFTWARE ENGINEER Hospital Encounter [facility], [facility], Sixth Floor [address] [place] [phone] Ludin Moreno M.D. Shital Frank M.D., Pharm.D. Frankie Moreau M.D. Decline Functional Status [R53.81] (Primary Dx); Hypertension Pulmonary (HCC); Dyspnea On Exertion; Failure Heart Right (HCC) Discharge Disposition: Home or Self Care 07/08/2024 Intake [facility] 07/08/2024 Clinical Communication Department of Cardiovascular Medicine in [address] [address] Matthew Mayes M.D. Symptom Assessment (Patient wants to be admitted & given Lasix to get rid of excess water weight.) 07/08/2024 Clinical Communication Isidro [facility] in [place], [place] [address] [place] [phone] Amna Dorman 07/06/2024 Orders Only Division of Hematology in [place], [place] [address] [place] [address] External, Ordering Provider, Dewayne 06/29/2024 12:20 PM TECHNICAL SUPPORT 1 SOFTWARE ENGINEER - 06/29/2024 11:59 PM TECHNICAL SUPPORT 1 SOFTWARE ENGINEER Hospital Encounter Department of Laboratory Medicine and Pathology, [facility], in [place], [place] [address] [place] [address] Isidro Zamarripa M.B., B.Ch. Myelofibrosis (HCC); Anemia; Hemosiderosis Discharge Disposition: Home or Self Care 06/29/2024 11:30 AM TECHNICAL SUPPORT 1 SOFTWARE ENGINEER Office Visit Division of Hematology in [place], [place] [address] [place] [phone] Isidro Zamarripa M.B., B.Ch. Myelofibrosis (HCC) (Primary Dx); Anemia; Hemosiderosis 06/29/2024 Clinical Communication Division of Hematology in [place], [place] [address] [place] [phone] Isidro Zamarripa M.B., B.Ch. Appt Request 06/29/2024 Orders Only Division of Hematology in [place], [place] [address] [place] [phone] External, Ordering ProviderDewayne 06/16/2024 11:30 AM TECHNICAL SUPPORT 1 SOFTWARE ENGINEER Virtual Visit Division of Hematology in [place], [place] [address] [place] [phone] Janusz Govea M.B.B.S. Myelofibrosis Primary (HCC) (Primary Dx) 06/16/2024 Orders Only Division of Hematology in [place], [place] [address] [place] [phone] External, Ordering ProviderDewanye 06/15/2024 Refill Division of Hematology in [place], [place] [address] [place] [address] Janusz Govea M.B.B.SZahraa Med Refill 06/11/2024 2:00 PM TECHNICAL SUPPORT 1 SOFTWARE ENGINEER Procedure visit Department of Infusion Therapy in [place], [place] [address] [place] [phone] Janusz Govea M.B.B.S. Haack, Joseph J, R.N. Malignant Neoplasm Of Bone Primary (HCC) (Primary Dx) 06/11/2024 12:08 PM TECHNICAL SUPPORT 1 SOFTWARE ENGINEER - 06/11/2024 12:53 PM TECHNICAL SUPPORT 1 SOFTWARE ENGINEER Hospital Encounter Department of Laboratory Medicine and Pathology, [facility] in [place], [place] [address] [place] [phone] Janusz Govea M.B.B.S. Myelofibrosis Primary (HCC) Discharge Disposition: Home or Self Care 06/07/2024 5:00 PM TECHNICAL SUPPORT 1 SOFTWARE ENGINEER - 06/08/2024 5:04 AM TECHNICAL SUPPORT [address] [facility] Emergency Department [address] [place] [phone] Discharge Disposition: ED Dismiss - Never Arrived 06/07/2024 Orders Only Division of Hematology in [place], [place] [address] [place] [phone] External, Ordering ProviderDeawyne 06/07/2024 Clinical Communication Department of Cardiovascular Medicine in [place], [place] [address] [place] [phone] Palak Gandhi R.N. Triage 06/07/2024 [facility] 06/03/2024 Orders Only Division of Hematology in [place], [place] [address] [place] [phone] Janusz Govea M.B.BRohit Myelofibrosis Primary (HCC) (Primary Dx) 06/01/2024 Clinical Communication Division of Hematology in [place], [place] [address] [place] [phone] Janusz Govea M.B.BZahraaSZahraa hemoglobin decrease 05/31/2024 Orders Only Division of Hematology in [place], [place] [address] [place] [phone] External, Ordering ProviderDewayne 05/24/2024 Orders Only Division of Hematology in [place], [place] [address] [place] [address] External, Ordering Provider, MKathleen 05/20/2024 Orders Only Division of Hematology in [place], [place] [address] [place] [phone] External, Ordering Provider, Dewayne 05/19/2024 Clinical Communication Department of Cardiovascular Medicine in [place], [place] [address] [place] [phone] Matthew Mayes 05/13/2024 Orders Only Division of Hematology in [place], [place] [address] [place] [phone] External, Ordering Provider, MKathleen 05/05/2024 Orders Only Division of Hematology in [place], [place] [address] [place] [phone] External, Ordering Provider, Dewayne 05/05/2024 Clinical Communication Division of Hematology in [place], [place] [address] [place] [phone] Janusz Govea M.B.B.S. Rash 04/29/2024 Orders Only Division of Hematology in [place], [place] [address] [place] [phone] External, Ordering Provider, Dewayne 04/28/2024 Orders Only [facility] in [place], [place] [address] [place] [phone] Eliana Vargas M.D. 04/27/2024 4:00 PM CDT Office Visit Department of Cardiovascular Medicine in [place], [place] [address] [place] [phone] Matthew Mayes M.D. Regurgitation Tricuspid (Primary Dx); Gastroesophageal Reflux Disease; Splenomegaly Acquired; Myelofibrosis Primary (HCC); Chronic Pain Syndrome; Failure Heart Right (HCC); Hypertension Pulmonary (HCC); Myelofibrosis (HCC); Dyspnea On Exertion; Obesity Body Mass Index 30-39.9 Adult 04/27/2024 9:00 AM CDT - 04/27/2024 10:15 AM CDT Surgery Division of Cardiovascular Diseases in [place], [place] [address] [place] [phone] Matthew Mayes M.D. NITRIC OXIDE STUDY 04/27/2024 7:56 AM CDT - 04/27/2024 10:33 AM CDT Hospital Encounter Division of Cardiovascular Diseases in [place], [place] [address] [place] [phone] Matthew Mayes M.D. Hypertension Pulmonary (HCC); Myelofibrosis (HCC); Dyspnea On Exertion Discharge Disposition: Home or Self Care 04/26/2024 2:10 PM CDT - 04/26/2024 11:59 PM CDT Hospital Encounter Department of Laboratory Medicine in [address] [phone] Matthew Mayes M.D. Dyspnea On Exertion; Hypertension Pulmonary Primary (HCC) Discharge Disposition: Home or Self Care 04/22/2024 2:30 PM CDT Virtual Visit Department of Cardiovascular Medicine in [place], [place] [address] [place] [phone] Matthew Mayes M.D. McDonald, Cheryl L, R.N. Regurgitation Tricuspid (Primary Dx); Hypertension Pulmonary (HCC); Myelofibrosis (HCC); Dyspnea On Exertion; Failure Heart Right (HCC) 04/22/2024 Clinical Communication Division of Hematology in [place], [place] [address] [place] [address] Janusz Govea M.B.B.SZahraa 04/22/2024 Orders Only Division of Hematology in [place], [place] [address] [place] [phone] External, Ordering Dewayne Olmos 04/22/2024 Orders Only Department of Cardiovascular Medicine in [place], [place] [address] [place] [phone] Denita Chavez R.N. Dyspnea On Exertion (Primary Dx); Hypertension Pulmonary Primary (HCC) 04/20/2024 Clinical Communication Division of Hematology in [place], [place] [address] [place] [address] Janusz Govea M.B.B.S. Order Request from Last 3 Months Immunizations Name Administration [...] = 0.6 oz pur e alcohol) occasional [employer] Answer Date Recorded In the past 12 months has [facility] [employer], gas, oil, or water [employer] threatened to shut off services in your [...] your living situation today? I have a [facility] place to live 07/09/2024 Comments No Sex and Gender Information Value Date Recorded Sex Assigned at Female 07/24/2021 11:03 AM TECHNICAL SUPPORT 1 SOFTWARE ENGINEER Legal Sex Female 9:12 PM TECHNICAL SUPPORT 1 SOFTWARE ENGINEER Gender Identity Female 07/24/2021 11:03 AM TECHNICAL SUPPORT 1 SOFTWARE ENGINEER Sexual Orientation Straight 07/24/2021 11 :03 AM TECHNICAL SUPPORT 1 SOFTWARE ENGINEER Last Filed Vital Signs Vital Sign Reading Time Taken Comments Blood Pressure 117/61 07/16/2024 10:45 AM TECHNICAL SUPPORT 1 SOFTWARE ENGINEER Pulse 91 07/16/2024 8:15 AM TECHNICAL SUPPORT 1 SOFTWARE ENGINEER Temperature 36.9 C (98.4 F) 07/16/2024 10:53 AM TECHNICAL SUPPORT 1 SOFTWARE ENGINEER Respiratory Rate 16 07/16/2024 10:45 AM TECHNICAL SUPPORT 1 SOFTWARE ENGINEER Oxygen Saturation 87% 07/16/2024 10:53 AM TECHNICAL SUPPORT 1 SOFTWARE ENGINEER Inhaled Oxygen Concentration - - Weight 136 kg (299 lb 13.2 oz) 07/16/2024 9:28 A M TECHNICAL SUPPORT 1 SOFTWARE ENGINEER Height 171 cm (5' 7.32) 07/09/2024 12:52 PM TECHNICAL SUPPORT 1 SOFTWARE ENGINEER Body Mass Index 46.51 07/09/2024 12:52 PM TECHNICAL SUPPORT 1 SOFTWARE ENGINEER Plan of Treatment Upcoming Encounters Date Type Department Care Team (Late st Contact Info) Description 08/10/2024 8:30 AM TECHNICAL SUPPORT 1 SOFTWARE ENGINEER Telemedicine Division of Hematology in [place], [place] [address] [place] [address] Isidro Zamarripa M.B., B.Ch. [address] [place] [phone] 08/26/2024 8:30 AM TECHNICAL SUPPORT 1 SOFTWARE ENGINEER Appointment Department of Laboratory Medicine and Pathology, [facility], in [place], [place] [address] [place] [address] Matthew Mayes M.D. [address] [place] [phone] 08/26/2024 9:00 AM TECHNICAL SUPPORT 1 SOFTWARE ENGINEER Appointment Department of Cardiac Rehabilitation in [place], [place] [address] [place] [address] Matthew Mayes M.D. [address] [place] [phone] 08/26/2024 11:00 AM TECHNICAL SUPPORT 1 SOFTWARE ENGINEER Clinical Support Department of Nutrition and Diabetes Education in [place], [place] [address] [place] [address] aMtthew Mayes M.D. [address] [place] [phone] Karmen Zambrano, EVIEN, [place] [address] [place] [phone] 08/27/2024 10:30 AM TECHNICAL SUPPORT 1 SOFTWARE ENGINEER Office Visit Department of Cardiovascular Medicine in [place], [place] [address] [place] [phone] Matthew Mayes M.D. [address] [place] [phone] 09/14/2024 12:00 PM TECHNICAL SUPPORT 1 SOFTWARE ENGINEER Appointment Department of Laboratory Medicine and Pathology, [facility], in [place], [place] [address] [place] [phone] Janusz Govea M.B.B.S. [address] [place] [phone] 09/14/2024 2:00 PM TECHNICAL SUPPORT 1 SOFTWARE ENGINEER Office Visit Division of Hematology in [place], [place] [address] [place] [address] Janusz Govea M.B.B.S. [address] [place] [address] Health Maintenance Due Date Last Done Comments [...] Substance Monitoring (PHQ-9) 02/19/2019 Controlled Substance Monitoring (UDS) 02/19/2019 Opioid Risk Tool (ORT) 02/19/2019 PEG assessment for Opioid therapy 02/19/2019 Cervical/Vaginal Cancer Screening 04/11/2019 04/11/2016 Opioid Use Disorder (OUD) Screening 02/20/2020 MenB Vaccine (2 of 4 - Increased Risk Bexsero 2-dose series) 07/04/2021 06/06/2021 Meningococcal Vaccine (2 - Risk 2-dose series) 08/01/2021 06/06/2021 Pneumococcal vaccine (50+ years) (2 of 2 - PPSV23) 08/01/2021 06/06/2021 Lung Cancer Screening 06/07/2022 06/07/2021 Depression Screening (Annual PHQ-2) 07/14/2024 Creatinine Level (Kidney Function Test) 07/16/2025 07/16/2024, 07/15/2024, 07/14/2024, Additional history exists Potassium Level 07/16/2025 07/16/2024, 08/2024, 07/14/2024, Additional history exists Sodium Level 07/16/2025 07/16/2024, 08/2024, 07/14/2024, Additional history exists Fasting Glucose for Diabetes Screening 07/16/2027 07/16/2024, 07/15/2024, 07/14/2024, Additional history exists Lipid (Cholesterol) Screening 07/09/2029 07/09/2024, 05/01/2016 HIB Vaccines Completed 06/06/2021 COVID-19 Vaccine Completed 05/18/2024, , 05/17/2022, Additional history exists Influenza Vaccine Completed 05/18/2024, , 05/17/2022, Additional history exists IPV Vaccines Aged Out No longer eligi ble based on patient's age to complete this topic Medical Devices Implanted Type Area Pediatric Physiatrist Device Identifier Shelf Expiration Date Model / Serial / Lot [employer] - [id number] Implanted:Qty : 1 on 03/13/2022 by Hema Rothman M.D. at [facility] Hardware e.g. pins/screws/ rods N/A: [employer] [id number] / / Clp scot [employer] - [id number] Implanted:Qty : 1 on 03/13/2022 by Hema Rothman M.D. at [facility] Hardware e.g. pins/screws/ rods N/A: [employer] [id number] / / Procedures Procedure Name Priority Date/Time Associated Diagnosis Comments CBC WITHOUT DIFFERENTIAL, B Routine 07/16/2024 10:11 AM TECHNICAL SUPPORT 1 SOFTWARE ENGINEER MAGNESIUM, S Routine 07/16/2024 10:10 AM TECHNICAL SUPPORT 1 SOFTWARE ENGINEER BASIC METABOLIC PANEL, S/P Routine 07/16/2024 10:10 AM TECHNICAL SUPPORT 1 SOFTWARE ENGINEER RT TO ARRANGE FOR HOME DME Routine 07/15/2024 2:38 PM TECHNICAL SUPPORT 1 SOFTWARE ENGINEER NOCTURNAL OXYGEN STUDY - RT Routine 07/15/2024 2:38 PM TECHNICAL SUPPORT 1 SOFTWARE ENGINEER CARDIAC CATHETERIZATION Routine 07/15/2024 11:51 AM TECHNICAL SUPPORT 1 SOFTWARE ENGINEER Hypertension Pulmonary (HCC) Dyspnea On Exertion CARDIAC CATHETERIZATION Routine 07/15/2024 11:51 AM TECHNICAL SUPPORT 1 SOFTWARE ENGINEER Hypertension Pulmonary (HCC) Dyspnea On Exertion ECHO - INTRAPROCEDURAL IMAGES ONLY Routine 07/15/2024 11:44 AM TECHNICAL SUPPORT 1 SOFTWARE ENGINEER Failure Heart Right (HCC) ADULT OXYGEN THERAPY Routine 07/15/2024 8:01 AM TECHNICAL SUPPORT 1 SOFTWARE ENGINEER MAGNESIUM, S Routine 07/15/2024 7:13 AM TECHNICAL SUPPORT 1 SOFTWARE ENGINEER BASIC METABOLIC PANEL, S/P Routine 07/15/2024 7:13 AM TECHNICAL SUPPORT 1 SOFTWARE ENGINEER CBC WITHOUT DIFFERENTIAL, B Routine 07/15/2024 7:12 AM TECHNICAL SUPPORT 1 SOFTWARE ENGINEER ADULT OXYGEN THERAPY Routine 07/14/2024 8:00 PM TECHNICAL SUPPORT 1 SOFTWARE ENGINEER CBC WITHOUT DIFFERENTIAL, B Routine 07/14/2024 9:32 AM TECHNICAL SUPPORT 1 SOFTWARE ENGINEER MAGNESIUM, S Routine 07/14/2024 9:32 AM TECHNICAL SUPPORT 1 SOFTWARE ENGINEER CBC WITHOUT DIFFERENTIAL, B Routine 07/14/2024 9:32 AM TECHNICAL SUPPORT 1 SOFTWARE ENGINEER BASIC METABOLIC PANEL, S/P Routine 07/14/2024 9:32 AM TECHNICAL SUPPORT 1 SOFTWARE ENGINEER ADULT OXYGEN THERAPY Routine 07/14/2024 8:00 AM TECHNICAL SUPPORT 1 SOFTWARE ENGINEER ADULT OXYGEN THERAPY Routine 07/13/2024 8:01 PM TECHNICAL SUPPORT 1 SOFTWARE ENGINEER MAGNESIUM, S Routine 07/13/2024 9:45 AM TECHNICAL SUPPORT 1 SOFTWARE ENGINEER CBC WITHOUT DIFFERENTIAL, B Routine 07/13/2024 9:45 AM TECHNICAL SUPPORT 1 SOFTWARE ENGINEER BASIC METABOLIC PANEL, S/P Routine 07/13/2024 9:45 AM TECHNICAL SUPPORT 1 SOFTWARE ENGINEER TYPE AND SCREEN Routine 07/13/2024 9:44 AM TECHNICAL SUPPORT 1 SOFTWARE ENGINEER ADULT OXYGEN THERAPY Routine 07/13/2024 8:01 AM TECHNICAL SUPPORT 1 SOFTWARE ENGINEER ADULT OXYGEN THERAPY Routine 07/12/2024 8:01 PM TECHNICAL SUPPORT 1 SOFTWARE ENGINEER BASIC METABOLIC PANEL, S/P Timed 07/12/2024 5:11 PM TECHNICAL SUPPORT 1 SOFTWARE ENGINEER CBC WITHOUT DIFFERENTIAL, B Timed 07/12/2024 5:10 PM TECHNICAL SUPPORT 1 SOFTWARE ENGINEER TRANSFUSE RED BLOOD CELLS Routine 07/12/2024 1:01 PM TECHNICAL SUPPORT 1 SOFTWARE ENGINEER INFLUENZA A, B, RSV, PCR, RAPID, V Routine 07/12/2024 12:28 PM TECHNICAL SUPPORT 1 SOFTWARE ENGINEER SARS CORONAVIRUS 2, PCR RAPID, V Routine 07/12/2024 12:28 PM TECHNICAL SUPPORT 1 SOFTWARE ENGINEER GLUCOSE POCT, B Routine 07/12/2024 12:07 PM TECHNICAL SUPPORT 1 SOFTWARE ENGINEER BACTERIA / RONIT CULTURE, BLOOD Routine 07/12/2024 12:01 PM TECHNICAL SUPPORT 1 SOFTWARE ENGINEER BACTERIA / RONIT CULTURE, BLOOD Routine 07/12/2024 11:57 AM TECHNICAL SUPPORT 1 SOFTWARE ENGINEER ADULT OXYGEN THERAPY Routine 07/12/2024 8:01 AM TECHNICAL SUPPORT 1 SOFTWARE ENGINEER ECG Routine 07/12/2024 6:37 AM TECHNICAL SUPPORT 1 SOFTWARE ENGINEER GLUCOSE POCT, B Routine 07/12/2024 6:30 AM TECHNICAL SUPPORT 1 SOFTWARE ENGINEER LACTATE, B/P STAT 07/12/2024 5:02 AM TECHNICAL SUPPORT 1 SOFTWARE ENGINEER MAGNESIUM, S Routine 07/12/2024 4:52 AM TECHNICAL SUPPORT 1 SOFTWARE ENGINEER CBC WITHOUT DIFFERENTIAL, B Routine 07/12/2024 4:52 AM TECHNICAL SUPPORT 1 SOFTWARE ENGINEER BASIC METABOLIC PANEL, S/P Routine 07/12/2024 4:52 AM TECHNICAL SUPPORT 1 SOFTWARE ENGINEER GLUCOSE POCT, B Routine 07/11/2024 9:17 PM TECHNICAL SUPPORT 1 SOFTWARE ENGINEER ADULT OXYGEN THERAPY Routine 07/11/2024 8:00 PM TECHNICAL SUPPORT 1 SOFTWARE ENGINEER GLUCOSE POCT, B Routine 07/11/2024 4:37 PM TECHNICAL SUPPORT 1 SOFTWARE ENGINEER GLUCOSE POCT, B Routine 07/11/2024 11:37 AM TECHNICAL SUPPORT 1 SOFTWARE ENGINEER MAGNESIUM, S Routine 07/11/2024 9:10 AM TECHNICAL SUPPORT 1 SOFTWARE ENGINEER CBC WITHOUT DIFFERENTIAL, B Routine 07/11/2024 9:10 AM TECHNICAL SUPPORT 1 SOFTWARE ENGINEER BASIC METABOLIC PANEL, S/P Routine 07/11/2024 9:10 AM TECHNICAL SUPPORT 1 SOFTWARE ENGINEER ADULT OXYGEN THERAPY Routine 07/11/2024 8:00 AM TECHNICAL SUPPORT 1 SOFTWARE ENGINEER GLUCOSE POCT, B Routine 07/11/2024 6:22 AM TECHNICAL SUPPORT 1 SOFTWARE ENGINEER GLUCOSE POCT, B Routine 07/10/2024 10:21 PM TECHNICAL SUPPORT 1 SOFTWARE ENGINEER GLUCOSE POCT, B Routine 07/10/2024 9:53 PM TECHNICAL SUPPORT 1 SOFTWARE ENGINEER ECG Routine 07/10/2024 8:40 PM TECHNICAL SUPPORT 1 SOFTWARE ENGINEER ADULT OXYGEN THERAPY Routine 07/10/2024 8:00 PM TECHNICAL SUPPORT 1 SOFTWARE ENGINEER GLUCOSE POCT, B Routine 07/10/2024 4:32 PM TECHNICAL SUPPORT 1 SOFTWARE ENGINEER BASIC METABOLIC PANEL, S/P Timed 07/10/2024 3:27 PM TECHNICAL SUPPORT 1 SOFTWARE ENGINEER GLUCOSE POCT, B Routine 07/10/2024 11:54 AM TECHNICAL SUPPORT 1 SOFTWARE ENGINEER ADULT OXYGEN THERAPY Routine 07/10/2024 8:00 AM TECHNICAL SUPPORT 1 SOFTWARE ENGINEER MAGNESIUM, S Routine 07/10/2024 5:45 AM TECHNICAL SUPPORT 1 SOFTWARE ENGINEER CBC WITHOUT DIFFERENTIAL, B Routine 07/10/2024 5:45 AM TECHNICAL SUPPORT 1 SOFTWARE ENGINEER BASIC METABOLIC PANEL, S/P Routine 07/10/2024 5:45 AM TECHNICAL SUPPORT 1 SOFTWARE ENGINEER GLUCOSE POCT, B Routine 07/10/2024 5:43 AM TECHNICAL SUPPORT 1 SOFTWARE ENGINEER GLUCOSE POCT, B Routine 07/09/2024 9:07 PM TECHNICAL SUPPORT 1 SOFTWARE ENGINEER ADULT OXYGEN THERAPY Routine 07/09/2024 8:00 PM TECHNICAL SUPPORT 1 SOFTWARE ENGINEER GLUCOSE POCT, B Routine 07/09/2024 5:12 PM TECHNICAL SUPPORT 1 SOFTWARE ENGINEER BASIC METABOLIC PANEL, S/P Timed 07/09/2024 3:58 PM TECHNICAL SUPPORT 1 SOFTWARE ENGINEER CBC WITHOUT DIFFERENTIAL, B Timed 07/09/2024 3:58 PM TECHNICAL SUPPORT 1 SOFTWARE ENGINEER TRANSFUSE RED BLOOD CELLS Routine 07/09/2024 1:36 PM TECHNICAL SUPPORT 1 SOFTWARE ENGINEER GLUCOSE POCT, B Routine 07/09/2024 12:03 PM TECHNICAL SUPPORT 1 SOFTWARE ENGINEER (TTE) 2D ECHO DOPPLER COLOR Routine 07/09/2024 11:37 AM TECHNICAL SUPPORT 1 SOFTWARE ENGINEER ADULT OXYGEN THERAPY Routine 07/09/2024 8:01 AM TECHNICAL SUPPORT 1 SOFTWARE ENGINEER SPSMA RESULT Routine 07/09/2024 6:00 AM TECHNICAL SUPPORT 1 SOFTWARE ENGINEER CBC WITH DIFFERENTIAL, B Routine 07/09/2024 6:00 AM TECHNICAL SUPPORT 1 SOFTWARE ENGINEER THYROID-STIMULATING HORMONE-SENSITIVE (S-TSH) Routine 07/09/2024 6:00 AM TECHNICAL SUPPORT 1 SOFTWARE ENGINEER MAGNESIUM, S Routine 07/09/2024 6:00 AM TECHNICAL SUPPORT 1 SOFTWARE ENGINEER LIPID PANEL, S Routine 07/09/2024 6:00 AM TECHNICAL SUPPORT 1 SOFTWARE ENGINEER HEMOGLOBIN A1C, B Routine 07/09/2024 6:0 0 AM TECHNICAL SUPPORT 1 SOFTWARE ENGINEER COMPREHENSIVE METABOLIC PANEL, S/P Routine 07/09/2024 6:00 AM TECHNICAL SUPPORT 1 SOFTWARE ENGINEER PREPARE RED BLOOD CELLS Routine 07/09/2024 5:55 AM TECHNICAL SUPPORT 1 SOFTWARE ENGINEER PREPARE RED BLOOD CELLS Routine 07/09/2024 5:55 AM TECHNICAL SUPPORT 1 SOFTWARE ENGINEER TYPE AND SCREEN Routine 07/09/2024 5:55 AM TECHNICAL SUPPORT 1 SOFTWARE ENGINEER FRUCTOSAMINE, S/P Routine 07/09/2024 5:5 5 AM TECHNICAL SUPPORT 1 SOFTWARE ENGINEER THYROPEROXIDASE (TPO) ABS, S Routine 07/09/2024 5:55 AM TECHNICAL SUPPORT 1 SOFTWARE ENGINEER T3 (TRIIODOTHYRONINE), TOT, S Routine 07/09/2024 5:55 AM TECHNICAL SUPPORT 1 SOFTWARE ENGINEER T4 (THYROXINE), FREE, S Routine 07/09/2024 5:55 AM TECHNICAL SUPPORT 1 SOFTWARE ENGINEER ADULT OXYGEN THERAPY Routine 07/08/2024 8:00 PM TECHNICAL SUPPORT 1 SOFTWARE ENGINEER DX CHEST AP OR PA AND LATERAL 2 VIEWS RAD - Routine (most inpatients and all outpatients) 07/08/2024 6:30 PM TECHNICAL SUPPORT 1 SOFTWARE ENGINEER NT-PRO B-TYPE NATRIURETIC PEPTIDE (BNP), S Routine 07/08/2024 5:20 PM TECHNICAL SUPPORT 1 SOFTWARE ENGINEER MAGNESIUM, S Routine 07/08/2024 5:20 PM TECHNICAL SUPPORT 1 SOFTWARE ENGINEER COMPREHENSIVE METABOLIC PANEL, S/P Routine 07/08/2024 5:20 PM TECHNICAL SUPPORT 1 SOFTWARE ENGINEER CBC WITHOUT DIFFERENTIAL, B Routine 07/08/2024 5:20 PM TECHNICAL SUPPORT 1 SOFTWARE ENGINEER ADULT OXYGEN THERAPY Routine 07/08/2024 4:29 PM TECHNICAL SUPPORT 1 SOFTWARE ENGINEER ADULT OXYGEN THERAPY Routine 07/08/2024 4:29 PM TECHNICAL SUPPORT 1 SOFTWARE ENGINEER ADULT OXYGEN THERAPY Routine 07/08/2024 4:29 PM TECHNICAL SUPPORT 1 SOFTWARE ENGINEER CBC WITH DIFFERENTIAL, B Routine 07/06/2024 11:05 AM TECHNICAL SUPPORT 1 SOFTWARE ENGINEER HLA ANTIBODY SUMMARY REPORT 06/29/2024 12:51 PM TECHNICAL SUPPORT 1 SOFTWARE ENGINEER HLA CLASS I/II COMBINED CPRA, SERUM Routine 06/29/2024 12:51 PM TECHNICAL SUPPORT 1 SOFTWARE ENGINEER HLA CLASS II SAB ANTIBODY SCREEN Routine 06/29/2024 12:51 PM TECHNICAL SUPPORT 1 SOFTWARE ENGINEER Myelofibrosis (HCC) HLA CLASS I SAB ANTIBODY SCREEN Routine 06/29/2024 12:51 PM TECHNICAL SUPPORT 1 SOFTWARE ENGINEER Myelofibrosis (HCC) HLA CLASS II TYPING HIGHRES,RECIP,B Routine 06/29/2024 12:51 PM TECHNICAL SUPPORT 1 SOFTWARE ENGINEER Myelofibrosis (HCC) HLA CLASS I TYPING HIGHRES,RECIP,B Routine 06/29/2024 12:51 PM TECHNICAL SUPPORT 1 SOFTWARE ENGINEER Myelofibrosis (HCC) FERRITIN, S Routine 06/29/2024 12:51 PM TECHNICAL SUPPORT 1 SOFTWARE ENGINEER Myelofibrosis (HCC) Hemosiderosis IRON AND TOT IRON-BINDING CAPACITY, S/P Routine 06/29/2024 12:51 PM TECHNICAL SUPPORT 1 SOFTWARE ENGINEER Myelofibrosis (HCC) Anemia TRANSPLANT ABO CONFIRMATION Routine 06/29/2024 12:51 PM TECHNICAL SUPPORT 1 SOFTWARE ENGINEER Myelofibrosis (HCC) CYTOMEGALOVIRUS AB, IGM AND IGG Routine 06/29/2024 12:51 PM TECHNICAL SUPPORT 1 SOFTWARE ENGINEER Myelofibrosis (HCC) CBC WITH DIFFERENTIAL, B Routine 06/29/2024 9:19 AM TECHNICAL SUPPORT 1 SOFTWARE ENGINEER CBC WITH DIFFERENTIAL, B Routine 06/16/2024 11:01 AM TECHNICAL SUPPORT 1 SOFTWARE ENGINEER MYELOID NEOPLASMS, NGS Routine 2:00 PM TECHNICAL SUPPORT 1 SOFTWARE ENGINEER CHROMOSOMES, HEMATOLOGIC, BM Routine 06/11/2024 2:00 PM TECHNICAL SUPPORT 1 SOFTWARE ENGINEER WA DX BONE MARROW BX & ASPIR Routine 06/11/2024 2:00 PM TECHNICAL SUPPORT 1 SOFTWARE ENGINEER Myelofibrosis Primary (HCC) SPSMA RESULT Routine 06/11/2024 12:45 PM TECHNICAL SUPPORT 1 SOFTWARE ENGINEER LACTATE DEHYDROGENASE (LD), S Routine 06/11/2024 12:45 PM TECHNICAL SUPPORT 1 SOFTWARE ENGINEER Myelofibrosis Primary (HCC) COMPREHENSIVE METABOLIC PANEL, S/P Routine 06/11/2024 12:45 PM TECHNICAL SUPPORT 1 SOFTWARE ENGINEER Myelofibrosis Primary (HCC) CBC WITH DIFFERENTIAL, B Routine 06/11/2024 12:45 PM TECHNICAL SUPPORT 1 SOFTWARE ENGINEER Myelofibrosis Primary (HCC) HEMATOPATHOLOGY Routine 06/11/2024 12:00 AM TECHNICAL SUPPORT 1 SOFTWARE ENGINEER BASIC METABOLIC PANEL, S/P Routine 06/07/2024 12:00 PM TECHNICAL SUPPORT 1 SOFTWARE ENGINEER CBC WITH DIFFERENTIAL, B Routine 06/07/2024 11:59 AM TECHNICAL SUPPORT 1 SOFTWARE ENGINEER CBC WITH DIFFERENTIAL, B Routine 05/31/2024 9:56 AM TECHNICAL SUPPORT 1 SOFTWARE ENGINEER CBC WITH DIFFERENTIAL, B Routine 05/24/2024 9:41 AM TECHNICAL SUPPORT 1 SOFTWARE ENGINEER CBC WITH DIFFERENTIAL, B Routine 05/20/2024 10:11 AM TECHNICAL SUPPORT 1 SOFTWARE ENGINEER CBC WITH DIFFERENTIAL, B Routine 05/13/2024 10:15 [...] ED patients; some inpatients) 06/07/2021 10:15 AM TECHNICAL SUPPORT 1 SOFTWARE ENGINEER from Last 3 Months or Most Recently Relevant to Health Maintenance Results * (ABNORMAL) CBC without Differential (07/16/2024 10:11 AM TECHNICAL SUPPORT 1 SOFTWARE ENGINEER) Only the most recent of12 resultswithin the time period is included. Hemoglobin 7.2(L) 11.6 - 15.0 g/dL 07/16/2024 10:48 AM TECHNICAL SUPPORT 1 SOFTWARE ENGINEER DTL Hematocrit 23.5(L) 35.5 - 44.9 % 07/16/2024 10:48 AM TECHNICAL SUPPORT 1 SOFTWARE ENGINEER DTL Erythrocytes 2.45(L) 3.92 - 5.13 x10(12)/L 07/16/2024 10:48 AM TECHNICAL SUPPORT 1 SOFTWARE ENGINEER DTL MCV 95.9 78.2 - 97.9 fL 07/16/2024 10:48 AM TECHNICAL SUPPORT 1 SOFTWARE ENGINEER DTL RBC Distrib Width 21.4(H) 12.2 - 16.1 % 07/16/2024 10:48 AM TECHNICAL SUPPORT 1 SOFTWARE ENGINEER DTL Platelet Count 306 157 - 371 x10(9)/L 07/16/2024 10:48 AM TECHNICAL SUPPORT 1 SOFTWARE ENGINEER DTL Leukocytes 24.5(H) 3.4 - 9.6 x10(9)/L 07/16/2024 11:26 AM TECHNICAL SUPPORT 1 SOFTWARE ENGINEER DTL Comment:Corrected for normob lasts. Blood (Blood, Venous) 07/16/2024 10:11 AM TECHNICAL SUPPORT 1 SOFTWARE ENGINEER 07/16/2024 10:41 AM TECHNICAL SUPPORT 1 SOFTWARE ENGINEER us Claudia Andrews APRN, C.N.P., D.N.P. LAB BLOOD A DD-ON Final Result [facility] [address] [place] [address], [facility] DTL [facility] [address] [place] [address] * (ABNORMAL) Magnesium (07/16/2024 10:10 AM TECHNICAL SUPPORT 1 SOFTWARE ENGINEER) Only the most recent of9 resultswithin the time period is included. Pathologist [facility] Magnesium, S 2.9(H) 1.7 - 2.3 mg/dL 07/16/2024 11:17 AM TECHNICAL SUPPORT 1 SOFTWARE ENGINEER DTL Blood (Blood, Venous) 07/16/2024 10:10 AM TECHNICAL SUPPORT 1 SOFTWARE ENGINEER 07/16/2024 10:57 AM TECHNICAL SUPPORT 1 SOFTWARE ENGINEER us Claudia Andrews APRN, C.N.P., D.N.P. LAB BLOOD A DD-ON Final Result [facility] [address] [place] [address], [facility] [address] [place] [address] * (ABNORMAL) Basic Metabolic Panel (07/16/2024 10:10 AM TECHNICAL SUPPORT 1 SOFTWARE ENGINEER) Only the most recent of12 resultswithin the time period is included. Pathologist [facility] Potassium, S 4.6 3.6 - 5.2 mmol/L 07/16/2024 11:17 AM TECHNICAL SUPPORT 1 SOFTWARE ENGINEER DTL Sodium, S 142 135 - 145 mmol/L 07/16/2024 11:17 AM TECHNICAL SUPPORT 1 SOFTWARE ENGINEER DTL Chloride, S 97(L) 98 - 107 mmol/L 07/16/2024 11:17 AM TECHNICAL SUPPORT 1 SOFTWARE ENGINEER DTL Bicarbonate, S 34(H) 22 - 29 mmol/L 07/16/2024 11:17 AM TECHNICAL SUPPORT 1 SOFTWARE ENGINEER DTL Anion Gap 11 7 - 15 07/16/2024 11:17 AM TECHNICAL SUPPORT 1 SOFTWARE ENGINEER DTL BUN (Blood Urea Nitrogen), S 70(H) 6 - 21 mg/dL 07/16/2024 11:17 AM TECHNICAL SUPPORT 1 SOFTWARE ENGINEER DTL Creatinine 1.65(H) 0.59 - 1.04 mg/dL 07/16/2024 11:17 AM TECHNICAL SUPPORT 1 SOFTWARE ENGINEER DTL Estimated GFR (eGFR) 36(L) >=60 mL/min/BSA 07/16/2024 11:17 AM TECHNICAL SUPPORT 1 SOFTWARE ENGINEER DTL Comment: Estimated GFR calculated using the 2020 CKD_EPI creatinine equation. Calcium, Total, S 8.8 8.6 - 10.0 mg/dL 07/16/2024 11:17 AM TECHNICAL SUPPORT 1 SOFTWARE ENGINEER DTL Glucose, S 152(H) 70 - 140 mg/dL 07/16/2024 11:17 AM TECHNICAL SUPPORT 1 SOFTWARE ENGINEER DTL Blood (Blood, Venous) 07/16/2024 10:10 AM TECHNICAL SUPPORT 1 SOFTWARE ENGINEER 07/16/2024 10:57 AM TECHNICAL SUPPORT 1 SOFTWARE ENGINEER us Claudia Andrews APRN, C.N.P., D.N.P. LAB BLOOD A DD-ON Final Result [facility] [address] [place] [address], [facility] [address] [place] [address] * RIGHT HEART CATHETERIZATION, NITRIC OXIDE STUDY (07/15/2024 11:51 AM TECHNICAL SUPPORT 1 SOFTWARE ENGINEER) Anatomical Region Laterality Modality X-Ray Angiograph y 07/15/2024 10:5 7 AM TECHNICAL SUPPORT 1 SOFTWARE ENGINEER Narrative 07/16/2024 5:48 AM TECHNICAL SUPPORT 1 SOFTWARE ENGINEER For the complete report, see the Order-Level [...] reveal a step-up to suggest a significant dhyc-cr-kfqus intracardiac shunt. Agitated saline study did not show any krary-cz-mbcd shunt. NITRIC OXIDE 80 PPM (+4L NC [...] not reveal a step-up to suggest a wgdbysnqgvfxnrn-kk-rhore intracardiac shunt. Agitated saline study did not show xtbffgcb-qt-vfza shunt. NITRIC OXIDE 80 PPM (+4L NC [...] the complete report, see the Order-Level Documents. Claudia Andrews APRN C.N.P., D.N.P. CV CARDIAC CATH PROCEDURES Final Result * Echo - Intraprocedural Images Only (07/15/2024 11:44 AM TECHNICAL SUPPORT 1 SOFTWARE ENGINEER) Claudia Andrews APRN C.N.P., D.N.P. CV ECHO PRO CEDURES Final Result [facility] EIMS NA * Type and Screen (with Reflex Antibody ID) (07/13/2024 9:44 AM TECHNICAL SUPPORT 1 SOFTWARE ENGINEER) Only the most recent of2 resultswithin the time period is included. ABORh A Pos Not applicable 07/13/2024 10:17 AM TECHNICAL SUPPORT 1 SOFTWARE ENGINEER STRM Antibody Screen Negative Negative 07/13/2024 10:36 AM TECHNICAL SUPPORT 1 SOFTWARE ENGINEER STRM Type & Screen Expiration 07/16/2024 23:59 07/13/2024 10:17 AM TECHNICAL SUPPORT 1 SOFTWARE ENGINEER STRM Testing Location [place] DEFAULT 07/13/2024 10:00 AM TECHNICAL SUPPORT 1 SOFTWARE ENGINEER STRM Blood (Blood, Venous) 07/13/2024 9:44 AM TECHNICAL SUPPORT 1 SOFTWARE ENGINEER 07/13/2024 10:00 AM TECHNICAL SUPPORT 1 SOFTWARE ENGINEER Janeth Rojas P.A.-C. LAB BLOOD BANK TEST ORDERAB LES Final Result [facility] [address] [place] [address], [place] STRM [facility] [address] [place] [address] * Transfuse Red Blood Cells : (07/12/2024 3:10 PM TECHNICAL SUPPORT 1 SOFTWARE ENGINEER) Only the most recent of2 resultswithin the time period is included. Janeth Rojas P.A.-C. BLOOD TRANSFUSION ORDERABLE S Final Result * Influenza A, B, RSV, PCR, Rapid (07/12/2024 12:28 PM TECHNICAL SUPPORT 1 SOFTWARE ENGINEER) Influenza A, PCR, Rapid, V Negative Negative 07/12/2024 1:32 PM TECHNICAL SUPPORT 1 SOFTWARE ENGINEER STMA Influenza B, PCR, Rapid, V Negative Negative 07/12/2024 1:32 PM TECHNICAL SUPPORT 1 SOFTWARE ENGINEER STMA Resp Synctial Virus, PCR, Rapid Negative Negative 07/12/2024 1:32 PM TECHNICAL SUPPORT 1 SOFTWARE ENGINEER STMA Specimen Source Swab, Nasopharynx 07/12/2024 1:03 PM TECHNICAL SUPPORT 1 SOFTWARE ENGINEER STMA Swab (Nasopharynx) 07/12/2024 12:28 PM TECHNICAL SUPPORT 1 SOFTWARE ENGINEER 07/12/2024 12:38 PM TECHNICAL SUPPORT 1 SOFTWARE ENGINEER Janeth Rojas P.A.-C. LAB MICROBIOLOGY - GENERAL ORDERABLES Final Result Performing Organization Address City/[facility]/ZIP Co de Phone Number [facility] [address] [place] [address], [facility] [address] [place] [address] * SARS Coronavirus 2, PCR Rapid Symptomatic (07/12/2024 12:28 PM TECHNICAL SUPPORT 1 SOFTWARE ENGINEER) Pathologist [facility] SARS CoV-2, PCR, Rapid, V Undetected Undetected 07/12/2024 1:03 PM TECHNICAL SUPPORT 1 SOFTWARE ENGINEER STMA SARS Coronavirus 2, Rapid, Source Swab, Nasopharynx 07/12/2024 12:38 PM TECHNICAL SUPPORT 1 SOFTWARE ENGINEER STMA Swab (Nasopharynx) 07/12/2024 12:28 PM TECHNICAL SUPPORT 1 SOFTWARE ENGINEER 07/12/2024 12:38 PM TECHNICAL SUPPORT 1 SOFTWARE ENGINEER us Janeth Rojas P.A.-C. LAB MICROBIOLOGY - GENERAL ORDERABLES Final Result Performing Organization Address City/[facility]/ZIP Co de Phone Number [facility] [address] [place] [address], [facility] [address] [place] [address] * (ABNORMAL) Glucose, POCT (07/12/2024 12:07 PM TECHNICAL SUPPORT 1 SOFTWARE ENGINEER) Only the most recent of14 resultswithin the time period is included. Pathologist [facility] Glucose, POCT, B 142(H) 70 - 140 mg/dL 07/12/2024 12:22 PM TECHNICAL SUPPORT 1 SOFTWARE ENGINEER PCLX Site Capillary 07/12/2024 12:22 PM TECHNICAL SUPPORT 1 SOFTWARE ENGINEER PCLX Last Intake 3-4 hours 07/12/2024 12:22 PM TECHNICAL SUPPORT 1 SOFTWARE ENGINEER PCLX Blood 07/12/2024 12:0 7 PM TECHNICAL SUPPORT 1 SOFTWARE ENGINEER 07/12/2024 12:22 PM TECHNICAL SUPPORT 1 SOFTWARE ENGINEER Unknown Provider LAB POCT ORDERABLES-MANUAL Ese l Result Performing Organization Address City/[facility]/ZIP Co de Phone Number [facility]OC [facility] [address] [place] [address], [facility] PCLX [facility] [address] [place] [address] * Bacteria / Ronit Culture, Blood #2 (07/12/2024 12:01 PM TECHNICAL SUPPORT 1 SOFTWARE ENGINEER) Only the most recent of2 resultswithin the time period is included. [facility] Bacteria/Maria R da Culture, Blood No growth after 5 days of incubation. 07/17/2024 1:02 PM TECHNICAL SUPPORT 1 SOFTWARE ENGINEER DTL Blood (Blood, Peripheral Draw) 07/12/2024 12:01 PM TECHNICAL SUPPORT 1 SOFTWARE ENGINEER 07/12/2024 12:28 PM TECHNICAL SUPPORT 1 SOFTWARE ENGINEER Comment:Specimen Source Site : Blood Janeth Rojas P.A.-C. LAB MICROBIOLOGY - GENERAL ORDERABLES Final Result Performing Organization Address City/[facility]/ZIP Co de Phone Number [facility] [address] [place] [address], [facility] [address] [place] [address] * ECG 12 Lead (07/12/2024 6:37 AM TECHNICAL SUPPORT 1 SOFTWARE ENGINEER) Only the most recent of3 resultswithin the time period is included. Pathologist [facility] Ventricular Rate ECG/Min 105 BPM MUSE WA Interval 160 ms MUSE QRSD Interval 84 ms MUSE QT Interval 370 ms MUSE QTC Interval 489 ms MUSE P [place] -16 degrees MUSE R [place] 90 degrees MUSE T Wave [place] -13 degrees MUSE 07/12/2024 6:37 AM TECHNICAL SUPPORT 1 SOFTWARE ENGINEER 07/12/2024 7:00 AM TECHNICAL SUPPORT 1 SOFTWARE ENGINEER Impressions MUSE - 07/12/2024 7:00 AM TECHNICAL SUPPORT 1 SOFTWARE ENGINEER Sinus tachycardia with sinus arrhythmia Nonspecific ST and T wave abnormality When compared with ECG of 10-Jul-2024 20:40, No significant change was found Reviewed by REG Sinclair Narrative Procedure Note Moreno Saldivar M.D. - 07/12/2024 IMPRESSION: Sinus tachycardia with sinus arrhythmia Nonspecific ST and T wave abnormality When compared with ECG of 10-Jul-2024 20:40, No significant change was found Reviewed by REG Sinclair Stephen Vasquez P.A.-C. ECG ORDERABLES Final Resu lt Performing Organization Address City/[facility]/ZIP Co de Phone Number MUSE NA * Lactate (07/12/2024 5:02 AM TECHNICAL SUPPORT 1 SOFTWARE ENGINEER) Pathologist [facility] Lactate, P 1.5 0.5 - 2.2 mmol/L 07/12/2024 5:22 AM TECHNICAL SUPPORT 1 SOFTWARE ENGINEER STMA Blood (Blood, Venous) 07/12/2024 5:02 AM TECHNICAL SUPPORT 1 SOFTWARE ENGINEER 07/12/2024 5:09 AM TECHNICAL SUPPORT 1 SOFTWARE ENGINEER Stephen Vasquez P.A.-C. LAB BLOOD NON ADD-ON Final Result [facility] [address] [place] [address], [facility] [address] [place] [address] * (TTE) 2D ECHO DOPPLER COLOR (07/09/2024 11:37 AM TECHNICAL SUPPORT 1 SOFTWARE ENGINEER) Pathologist [facility] Ejection Fraction 64 MC CV EIMS LV [...] Laterality Modality Echocardiography 07/09/2024 10:2 7 AM TECHNICAL SUPPORT 1 SOFTWARE ENGINEER Impressions 07/09/2024 1:55 PM TECHNICAL SUPPORT 1 SOFTWARE ENGINEER Echocardiogram performed per follow-up pulmonary hypertension protocol. [...] the Order-Level Documents. Narrative 07/09/2024 1:55 PM TECHNICAL SUPPORT 1 SOFTWARE ENGINEER For the complete report, see the Order-Level [...] * (ABNORMAL) Lipid Panel (07/09/2024 6:00 AM TECHNICAL SUPPORT 1 SOFTWARE ENGINEER) Triglycerides 118 mg/dL 07/09/2024 7:15 AM TECHNICAL SUPPORT 1 SOFTWARE ENGINEER DTL Comment: ----REFERENCE VALUE---- Normal: <150 mg/dL Borderline High: 150-199 mg/dL High: 200-499 mg/dL Very High: > or =500 mg/dL Cholesterol, Total 93 mg/dL 2023 7:15 AM TECHNICAL SUPPORT 1 SOFTWARE ENGINEER DTL Comment: ----REFERENCE VALUE---- Desirable: < 200 mg/dL Borderline High: 200 - 239 mg/dL High: > or = 240 mg/dL Cholesterol, LDL, Calculated 54 mg/dL 07/09/2024 7:15 AM TECHNICAL SUPPORT 1 SOFTWARE ENGINEER DTL Comment: ----REFERENCE VALUE---- Desirable: <100 mg/dL Above Desirable: 100-129 mg/dL Borderline High: 130-159 mg/dL High: 160-189 mg/dL Very High: >=190 mg/dL ----ADDITIONAL INFORMATION---- LDL cholesterol calculated using the Cody/NIH equation. Cholesterol, HDL, S 17(L) >=50 mg/dL 07/09/2024 7:15 AM TECHNICAL SUPPORT 1 SOFTWARE ENGINEER DTL Cholesterol, Non-HDL, Calculated 76 mg/dL 07/09/2024 7:15 AM TECHNICAL SUPPORT 1 SOFTWARE ENGINEER DTL Comment: ----REFERENCE VALUE---- Desirable: <130 mg/dL Above Desirable: 130-159 mg/dL Borderline High: 160-189 mg/dL High: 190-219 mg/dL Very High: > or =220 mg/dL Fasting (8 HR or more) Yes 07/09/2024 6:00 AM TECHNICAL SUPPORT 1 SOFTWARE ENGINEER DTL Blood (Blood, Venous) 07/09/2024 6:00 AM TECHNICAL SUPPORT 1 SOFTWARE ENGINEER 07/09/2024 6:41 AM TECHNICAL SUPPORT 1 SOFTWARE ENGINEER Lanette Solis APRN C.N.P., M.S.N. LAB BLOOD ADD-ON Final Result [address] [address], [address] [address] * (ABNORMAL) Morphology Eval (special smear) (07/09/2024 6:00 AM TECHNICAL SUPPORT 1 SOFTWARE ENGINEER) Only the most recent of2 resultswithin the time period is included. Neutrophilic Segs and Bands 72 50 - 75 % 07/09/2024 8:33 AM TECHNICAL SUPPORT 1 SOFTWARE ENGINEER DHPM Lymphocytes 4(L) 18 - 42 % 07/09/2024 8:33 AM TECHNICAL SUPPORT 1 SOFTWARE ENGINEER DHPM Monocytes 4 2 - 11 % 07/09/2024 8:33 AM TECHNICAL SUPPORT 1 SOFTWARE ENGINEER DHPM Basophils 1 0 - 2 % 07/09/2024 8:33 AM TECHNICAL SUPPORT 1 SOFTWARE ENGINEER DHPM Metamyelocytes 10(H) <1 % 07/09/2024 8:33 AM TECHNICAL SUPPORT 1 SOFTWARE ENGINEER DHPM Myelocytes 8(H) <0.5 % 07/09/2024 8:33 AM TECHNICAL SUPPORT 1 SOFTWARE ENGINEER DHPM Blasts 1(H) <1 % 07/09/2024 8:33 AM TECHNICAL SUPPORT 1 SOFTWARE ENGINEER DHPM Megakaryocytes 2(H) <1 /100 WBC 07/09/2024 8:33 AM TECHNICAL SUPPORT 1 SOFTWARE ENGINEER DHPM Nucleated RBC 77 /100 WBC 07/09/2024 8:33 AM TECHNICAL SUPPORT 1 SOFTWARE ENGINEER DHPM Manual Absolute Neutrophil Count 18.50(H) 1.56 - 6.45 x10(9)/L 07/09/2024 8:33 AM TECHNICAL SUPPORT 1 SOFTWARE ENGINEER DHPM Comment: ----ADDITIONAL INFORMATION---- The manual absolute neutrophil count is derived from a manual differential count and therefore is not exactly comparable to the automated absolute neutrophil count. Blood 07/09/2024 6:00 AM TECHNICAL SUPPORT 1 SOFTWARE ENGINEER 07/09/2024 6:30 AM TECHNICAL SUPPORT 1 SOFTWARE ENGINEER Lanette Solis APRN, C.N.P., M.S.N. LAB BLOOD ADD-ON Final Result [facility] [address] [place] [address], [facility] [address] [place] [address] * (ABNORMAL) CBC with Differential, Blood (07/09/2024 6:00 AM TECHNICAL SUPPORT 1 SOFTWARE ENGINEER) Only the most recent of15 resultswithin the time period is included. [facility] Hemoglobin 6.7(L) 11.6 - 15.0 g/dL 07/09/2024 6:39 AM TECHNICAL SUPPORT 1 SOFTWARE ENGINEER DTL Hematocrit 22.3(L) 35.5 - 44.9 % 07/09/2024 6:39 AM TECHNICAL SUPPORT 1 SOFTWARE ENGINEER DTL Erythrocytes 2.40(L) 3.92 - 5.13 x10(12)/L 07/09/2024 6:39 AM TECHNICAL SUPPORT 1 SOFTWARE ENGINEER DTL MCV 92.9 78.2 - 97.9 fL 07/09/2024 6:39 AM TECHNICAL SUPPORT 1 SOFTWARE ENGINEER DTL RBC Distrib Width 22.8(H) 12.2 - 16.1 % 07/09/2024 8:15 AM TECHNICAL SUPPORT 1 SOFTWARE ENGINEER DHPM Platelet Count 417(H) 157 - 371 x10(9)/L 07/09/2024 6:39 AM TECHNICAL SUPPORT 1 SOFTWARE ENGINEER DTL Leukocytes 25.7(H) 3.4 - 9.6 x10(9)/L 07/09/2024 8:32 AM TECHNICAL SUPPORT 1 SOFTWARE ENGINEER [facility] Comment:Corrected for normob lasts. Neutrophils See Comment 1.56 - 6.45 x10(9)/L 07/09/2024 8:32 AM TECHNICAL SUPPORT 1 SOFTWARE ENGINEER [facility] Comment:Auto-diff results no t valid. See manual differential. Blood (Blood, Venous) 07/09/2024 6:00 AM TECHNICAL SUPPORT 1 SOFTWARE ENGINEER 07/09/2024 6:30 AM TECHNICAL SUPPORT 1 SOFTWARE ENGINEER Vanda Cruz APRN.N.Khushbu., M.S.N. LAB BLOOD ADD-ON Final Result Performing Organization Address City/[facility]/[place] [address] * (ABNORMAL) S-TSH (Thyroid-Stimulating Hormone - Sensitive) (07/09/2024 6:00 AM TECHNICAL SUPPORT 1 SOFTWARE ENGINEER) Pathologist [facility] TSH, Sensitive 7.3(H) 0.3 - 4.2 mIU/L 07/09/2024 7:15 AM TECHNICAL SUPPORT 1 SOFTWARE ENGINEER DT Blood (Blood, Venous) 07/09/2024 6:00 AM TECHNICAL SUPPORT 1 SOFTWARE ENGINEER 07/09/2024 6:41 AM TECHNICAL SUPPORT 1 SOFTWARE ENGINEER Vanda Cruz APRN.N.P., M.S.N. LAB BLOOD ADD-ON Final Result Performing Organization Address City/[facility]/[place] [address] * (ABNORMAL) Hemoglobin A1c (07/09/2024 6:00 AM TECHNICAL SUPPORT 1 SOFTWARE ENGINEER) Hemoglobin A1c, B 7.4(H) 4.0 - 5.6 % 07/09/2024 6:49 AM TECHNICAL SUPPORT 1 SOFTWARE ENGINEER DTL Comment: Hemoglobin A1c values greater than or equal to 6.5 percent are diagnostic for diabetes mellitus. Diagnosis should be confirmed by repeat testing. In diabetic patients, HbA1c goals should be discussed with healthcare provider. Blood (Blood, Venous) 07/09/2024 6:00 AM TECHNICAL SUPPORT 1 SOFTWARE ENGINEER 07/09/2024 6:30 AM TECHNICAL SUPPORT 1 SOFTWARE ENGINEER Lanette Solis APRN, C.N.P., M.S.N. LAB BLOOD ADD-ON Final Result [facility] [address] [place] [address], [facility] [address] [place] [address] * (ABNORMAL) Comprehensive Metabolic Panel (07/09/2024 6:00 AM TECHNICAL SUPPORT 1 SOFTWARE ENGINEER) Only the most recent of3 resultswithin the time period is included. Pathologist [facility] Potassium, S 5.3(H) 3.6 - 5.2 mmol/L 07/09/2024 7:15 AM TECHNICAL SUPPORT 1 SOFTWARE ENGINEER DTL Sodium, S 143 135 - 145 mmol/L 07/09/2024 7:15 AM TECHNICAL SUPPORT 1 SOFTWARE ENGINEER DTL Chloride, S 102 98 - 107 mmol/L 07/09/2024 7:15 AM TECHNICAL SUPPORT 1 SOFTWARE ENGINEER DTL Bicarbonate, S 32(H) 22 - 29 mmol/L 07/09/2024 7:15 AM TECHNICAL SUPPORT 1 SOFTWARE ENGINEER DTL Anion Gap 9 7 - 15 07/09/2024 7:15 AM TECHNICAL SUPPORT 1 SOFTWARE ENGINEER DTL BUN (Blood Urea Nitrogen), S 41(H) 6 - 21 mg/dL 07/09/2024 7:15 AM TECHNICAL SUPPORT 1 SOFTWARE ENGINEER DTL Creatinine 1.30(H) 0.59 - 1.04 mg/dL 07/09/2024 7:15 AM TECHNICAL SUPPORT 1 SOFTWARE ENGINEER DTL Estimated GFR (eGFR) 48(L) >=60 mL/min/BS A 07/09/2024 7:15 AM TECHNICAL SUPPORT 1 SOFTWARE ENGINEER DTL Comment: Estimated GFR calculated using the 2020 CKD_EPI creatinine equation. Calcium, Total, S 8.4(L) 8.6 - 10.0 mg/dL 07/09/2024 7:15 AM TECHNICAL SUPPORT 1 SOFTWARE ENGINEER DTL Glucose, S 111 70 - 140 mg/dL 07/09/2024 7:15 AM TECHNICAL SUPPORT 1 SOFTWARE ENGINEER DTL Protein, Total, S 5.8(L) 6.3 - 7.9 g/dL 07/09/2024 7:15 AM TECHNICAL SUPPORT 1 SOFTWARE [employer]INE[employer] DTL Albumin, S 3.8 3.5 - 5.0 g/dL 07/09/2024 7:15 AM TECHNICAL SUPPORT 1 SOFTWARE ENGINEER DTL Aspartate Aminotransferase (AST), S 50(H) 8 - 43 U/L 07/09/2024 7:15 AM TECHNICAL SUPPORT 1 SOFTWARE ENGINEER DTL Alkaline Phosphatase, S 271(H) 35 - 104 U/L 07/09/2024 7:15 AM TECHNICAL SUPPORT 1 SOFTWARE ENGINEER DTL Alanine Aminotransferase (ALT), S 42 7 - 45 U/L 07/09/2024 7:15 AM TECHNICAL SUPPORT 1 SOFTWARE ENGINEER DTL Bilirubin, Total, S 1.3(H) 0.0 - 1.2 mg/dL 07/09/2024 7:15 AM TECHNICAL SUPPORT 1 SOFTWARE ENGINEER DTL Blood (Blood, Venous) 07/09/2024 6:00 AM TECHNICAL SUPPORT 1 SOFTWARE ENGINEER 07/09/2024 6:41 AM TECHNICAL SUPPORT 1 SOFTWARE ENGINEER us Pan Cruz APRNP., M.S.N. LAB BLOOD ADD-ON Final Result Performing Organization Address City/[facility]/ZIP Co de Phone Number [facility] [address] DTL [facility] 200 [place] [address] * Thyroperoxidase (TPO) Antibodies (07/09/2024 5:55 AM TECHNICAL SUPPORT 1 SOFTWARE ENGINEER) Thyroperoxidase Ab, S <15.0 <34.0 IU/mL 07/09/2024 9:10 AM TECHNICAL SUPPORT 1 SOFTWARE ENGINEER DTL Blood 07/09/2024 5:55 AM TECHNICAL SUPPORT 1 SOFTWARE ENGINEER 07/09/2024 8:39 AM TECHNICAL SUPPORT 1 SOFTWARE ENGINEER us Janeth Rojas P.A.-C. LAB BLOOD ADD-ON Final Resu lt Performing Organization Address City/[facility]/ZIP Co de Phone Number [facility] [address] [place], [place] [address] 200 [place] [address] * Fructosamine (07/09/2024 5:55 AM TECHNICAL SUPPORT 1 SOFTWARE ENGINEER) Fructosamine, S 236 200 - 285 mcmol/L 07/09/2024 9:51 AM TECHNICAL SUPPORT 1 SOFTWARE ENGINEER DT Blood (Blood, Venous) 07/09/2024 5:55 AM TECHNICAL SUPPORT 1 SOFTWARE ENGINEER 07/09/2024 9:23 AM TECHNICAL SUPPORT 1 SOFTWARE ENGINEER Christoph Arce APRN C.N.P., DZahraaNZahraaP. LAB BL OOD ADD-ON Final Result Performing Organization Address City/[facility]/ZIP Co de Phone Number [facility] [address] 200 [place] [address] * (ABNORMAL) T3 (Triiodothyronine), Total (07/09/2024 5:55 AM TECHNICAL SUPPORT 1 SOFTWARE ENGINEER) T3 (Triiodothyroni ne), Total, S 79(L) 80 - 200 ng/dL 07/09/2024 9:10 AM TECHNICAL SUPPORT 1 SOFTWARE ENGINEER DT Blood 07/09/2024 5:55 AM TECHNICAL SUPPORT 1 SOFTWARE ENGINEER 07/09/2024 8:39 AM TECHNICAL SUPPORT 1 SOFTWARE ENGINEER Janeth Rojas P.A.-C. LAB BLOOD ADD-ON Final Resu lt [facility] [address] 200 [place] [address] * T4 (Thyroxine), Free (07/09/2024 5:55 AM TECHNICAL SUPPORT 1 SOFTWARE ENGINEER) T4 (Thyroxine), Free, S 1.3 0.9 - 1.7 ng/dL 07/09/2024 9:10 AM TECHNICAL SUPPORT 1 SOFTWARE ENGINEER DT Blood (Blood, Venous) 07/09/2024 5:55 AM TECHNICAL SUPPORT 1 SOFTWARE ENGINEER 07/09/2024 8:39 AM TECHNICAL SUPPORT 1 SOFTWARE ENGINEER us Janeth Rojas P.A.-C. LAB BLOOD ADD-ON Final Resu lt [facility] [address] [place] [address], [place] [facility] [address] [place] [address] * DX Chest AP or PA and Lateral 2 Views (07/08/2024 6:30 PM TECHNICAL SUPPORT 1 SOFTWARE ENGINEER) Anatomical Region Laterality Modality Chest, Thoracic RST LOS, Tho racic ARZ LOS, Thoracic FLA LOS N/A Digital Radiography Impressions 07/08/2024 7:13 PM TECHNICAL SUPPORT 1 SOFTWARE ENGINEER Since 03/16/2022, interval development of mild interlobular septal thickening, increased prominence of the pulmonary vasculature, increased enlargement of the cardiac silhouette size consistent with mild pulmonary edema. New right lower lobe airspace opacity and small right pleural effusion may represent a superimposed infectious/inflammatory process. Linear subsegmental left lower lobe atelectasis or scarring. Elevated right hemidiaphragm. Narrative 07/08/2024 7:13 PM TECHNICAL SUPPORT 1 SOFTWARE ENGINEER EXAM: DX CHEST AP OR PA AND [...] lobe atelectasis or scarring. Elevated right hemidiaphragm. us Lanette Solis APRN, C.N.P., M.S.N. IMG DIAGNO STIC IMAGING PROCEDURES Final Result * (ABNORMAL) NT-Pro B-Type Natriuretic Peptide (BNP) (07/08/2024 5:20 PM TECHNICAL SUPPORT 1 SOFTWARE ENGINEER) NT-Pro BNP 7416(H) <=226 pg/mL 07/08/2024 6:21 PM TECHNICAL SUPPORT 1 SOFTWARE ENGINEER DTL Comment: NT-proBNP values less than 300 [...] failure. Blood (Blood, Venous) 07/08/2024 5:20 PM TECHNICAL SUPPORT 1 SOFTWARE ENGINEER 07/08/2024 5:58 PM TECHNICAL SUPPORT 1 SOFTWARE ENGINEER Vanda Cruz APRN.NMaria Elena., M.S.N. LAB BLOOD ADD-ON Final Result [facility] [address] [place] [address], [facility] [address] [place] [address] * HLA Class II Typing by High Resolution, Recipient (06/29/2024 12:51 PM TECHNICAL SUPPORT 1 SOFTWARE ENGINEER) [facility] DRB1 - [address] Not Applicable 07/08/2024 2:05 PM TECHNICAL SUPPORT 1 SOFTWARE ENGINEER DBB8 DRB1 - [address] Not Applicable 07/08/2024 2:05 PM TECHNICAL SUPPORT 1 SOFTWARE ENGINEER DBB8 DRB1 - 1 [place] DRB1*09:01 Not Applicable 07/08/2024 2:05 PM TECHNICAL SUPPORT 1 SOFTWARE ENGINEER DBB8 DRB1 - 2 [place] DRB1*12:01 Not Applicable 07/08/2024 2:05 PM TECHNICAL SUPPORT 1 SOFTWARE ENGINEER DBB8 [id number] - [address] Not Applicable 07/08/2024 2:05 PM TECHNICAL SUPPORT 1 SOFTWARE ENGINEER DBB8 [id number] - [address] Not Applicable 07/08/2024 2:05 PM TECHNICAL SUPPORT 1 SOFTWARE ENGINEER DBB8 [id number] - 1 [place] DRB3*02:02 Not Applicable 07/08/2024 2:05 PM TECHNICAL SUPPORT 1 SOFTWARE ENGINEER DBB8 [id number] - 2 [place] DRB4*01:03 Not Applicable 07/08/2024 2:05 PM TECHNICAL SUPPORT 1 SOFTWARE ENGINEER DBB8 DQB1 - 1 Equivalent DQ7 Not Applicable 07/08/2024 2:05 PM TECHNICAL SUPPORT 1 SOFTWARE ENGINEER DBB8 DQB1 - 2 Equivalent DQ9 Not Applicable 07/08/2024 2:05 PM TECHNICAL SUPPORT 1 SOFTWARE ENGINEER DBB8 DQB1 - 1 [place] DQB1*03:01 Not Applicable 07/08/2024 2:05 PM TECHNICAL SUPPORT 1 SOFTWARE ENGINEER DBB8 DQB1 - 2 [place] DQB1*03:03 Not Applicable 07/08/2024 2:05 PM TECHNICAL SUPPORT 1 SOFTWARE ENGINEER DBB8 DQA1 - 1 [place] DQA1*03:02 Not Applicable 07/08/2024 2:05 PM TECHNICAL SUPPORT 1 SOFTWARE ENGINEER DBB8 DQA1 - 2 [place] DQA1*05:05 Not Applicable 07/08/2024 2:05 PM TECHNICAL SUPPORT 1 SOFTWARE ENGINEER DBB8 DPB1 - 1 [place] DPB1*04:01 Not Applicable 07/08/2024 2:05 PM TECHNICAL SUPPORT 1 SOFTWARE ENGINEER DBB8 DPB1 - 2 [place] DPB1*04:01 Not Applicable 07/08/2024 2:05 PM TECHNICAL SUPPORT 1 SOFTWARE ENGINEER DBB8 DPA1 - 1 [place] DPA1*01:03 Not Applicable 07/08/2024 2:05 PM TECHNICAL SUPPORT 1 SOFTWARE ENGINEER DBB8 DPA1 - 2 [place] DPA1*01:03 Not Applicable 07/08/2024 2:05 PM TECHNICAL SUPPORT 1 SOFTWARE ENGINEER DBB8 DRB1 Unresolved Alleles DRB1*09:57 07/08/2024 2:05 PM TECHNICAL SUPPORT 1 SOFTWARE ENGINEER DBB8 Test Method PCR - Next Generation Sequencing 07/08/2024 2:05 PM TECHNICAL SUPPORT 1 SOFTWARE ENGINEER DBB8 Comment: ----ADDITIONAL INFORMATION---- Common, intermediate and well-documented (CIWD) HLA alleles are resolved or listed if not resolved. Listing of ambiguous rare alleles not resolved can be found in the corresponding unresolved field. (Albert ROSENBERG, Cesar J, Nolan K, et al. 2020; 1-16 [email or web address]://doi.org/[email or web address]/[email or web address].41260). For convenience, when not defined in the WHO Nomenclature a laboratory defined serologic equivalent has been provided. This test was developed and its performance characteristics determined by [facility] in a manner consistent with CLIA requirements. This test has not been cleared or approved by the U.S. Food and Drug Administration. CLIA: [id number] CLIA Standards Engineer: NIXON FOLRENTINO,Ph.D. Blood (Blood, Venous) 06/29/2024 12:51 PM TECHNICAL SUPPORT 1 SOFTWARE ENGINEER 06/29/2024 1:45 PM TECHNICAL SUPPORT 1 SOFTWARE ENGINEER Isidro Arrington B.Ch. LAB HLA ORDERABLES F inal Result [facility] [address] [place] [address], [place] DBB8 [facility] [address] [place] [address] * HLA Class I Typing by High Resolution, Recipient (06/29/2024 12:51 PM TECHNICAL SUPPORT 1 SOFTWARE ENGINEER) Pathologist [facility] A - 1 Equivalent A2 Not Applicable 07/08/2024 2:04 PM TECHNICAL SUPPORT 1 SOFTWARE ENGINEER DBB8 A - 2 Equivalent A24 Not Applicable 07/08/2024 2:04 PM TECHNICAL SUPPORT 1 SOFTWARE ENGINEER DBB8 A - 1 [place]lele A*02:01 Not Applicable 07/08/2024 2:04 PM TECHNICAL SUPPORT 1 SOFTWARE ENGINEER DBB8 A - 2 [place]le[place] A*24:02 Not Applicable 07/08/2024 2:04 PM TECHNICAL SUPPORT 1 SOFTWARE ENGINEER DBB8 B - 1 Equivalent B44 Not Applicable 07/08/2024 2:04 PM TECHNICAL SUPPORT 1 SOFTWARE ENGINEER DBB8 B - 2 Equivalent B51 Not Applicable 07/08/2024 2:04 PM TECHNICAL SUPPORT 1 SOFTWARE ENGINEER DBB8 B - 1 Allele B*44:02 Not Applicable 07/08/2024 2:04 PM TECHNICAL SUPPORT 1 SOFTWARE ENGINEER DBB8 B - 2 Allele B*51:01 Not Applicable 07/08/2024 2:04 PM TECHNICAL SUPPORT 1 SOFTWARE ENGINEER DBB8 Bw - 1 Equivalent Bw4 Not Applicable 07/08/2024 2:04 PM TECHNICAL SUPPORT 1 SOFTWARE ENGINEER DBB8 Bw - 2 Equivalent Bw4 Not Applicable 07/08/2024 2:04 PM TECHNICAL SUPPORT 1 SOFTWARE ENGINEER DBB8 C - 1 Equivalent Cw5 Not Applicable 07/08/2024 2:04 PM TECHNICAL SUPPORT 1 SOFTWARE ENGINEER DBB8 C - 2 Equivalent Cw14 Not Applicable 07/08/2024 2:04 PM TECHNICAL SUPPORT 1 SOFTWARE ENGINEER DBB8 C - 1 Allele C*05:01 Not Applicable 07/08/2024 2:04 PM TECHNICAL SUPPORT 1 SOFTWARE ENGINEER DBB8 C - 2 Allele C*14:02 Not Applicable 07/08/2024 2:04 PM TECHNICAL SUPPORT 1 SOFTWARE ENGINEER DBB8 Test Method PCR - Next Generation Sequencing 07/08/2024 2:04 PM TECHNICAL SUPPORT 1 SOFTWARE ENGINEER DBB8 Comment: ----ADDITIONAL INFORMATION---- Common, intermediate and well-documented (CIWD) HLA alleles are resolved or listed if not resolved. Listing of ambiguous rare alleles not resolved can be found in the corresponding unresolved field. (Albert CK, Cesar J, Nolan K, et al. 2020; 1-16 https://doi.org/[email or web address]/[email or web address].12204). For convenience, when not defined in the WHO Nomenclature a laboratory defined serologic equivalent has been provided. This test was developed and its performance characteristics determined by [facility] in a manner consistent with CLIA requirements. This test has not been cleared or approved by the U.S. Food and Drug Administration. CLIA: [id number] CLIA Standards Engineer: NIXON FLORENTINO,Ph.D. Blood (Blood, Venous) 06/29/2024 12:51 PM TECHNICAL SUPPORT 1 SOFTWARE ENGINEER 06/29/2024 1:46 PM TECHNICAL SUPPORT 1 SOFTWARE ENGINEER Narrative [facility] - 07/08/2024 2:04 PM TECHNICAL SUPPORT 1 SOFTWARE ENGINEER Specimen Information: Specimen ID: [id number] Specimen Type: Blood Specimen Collection Start Date: 06/29/2024 12:51 PM Specimen Received Date: 06/29/2024 1:46 PM Specimen ID: [id number] Specimen Type: Blood Specimen Collection Start Date: 06/29/2024 12:51 PM Specimen Received Date: 06/29/2024 1:46 PM Specimen ID: [id number] Specimen Type: Blood Specimen Collection Start Date: 06/29/2024 12:51 PM Specimen Received Date: 06/29/2024 1:45 PM Isidro Arrington B.Ch. LAB HLA ORDERABLES F inal Result [facility] [address] [place] [address], [facility] DBB8 [facility] [address] [place] [address] * HLA Class I/II Combined cPRA, Serum (06/29/2024 12:51 PM TECHNICAL SUPPORT 1 SOFTWARE ENGINEER) Class I/II Combined cPRA 2.98 Not Applicable 07/01/2024 10:20 AM TECHNICAL SUPPORT 1 SOFTWARE ENGINEER DBB8 Comment: ----ADDITIONAL INFORMATION---- Calculated PRA (cPRA) [...] published by UNOS/OPTN listed here: http://optn.transplant.hrsa.gov CLIA: [id number] CLIA Standards Engineer: NIXON FLORENTINO,Ph.D. Combined cPRA Specificities see below 07/01/2024 10:20 AM TECHNICAL SUPPORT 1 SOFTWARE ENGINEER DBB8 Comment:DP:14:01 Blood 06/29/2024 12:5 1 PM TECHNICAL SUPPORT 1 SOFTWARE ENGINEER 06/29/2024 2:33 PM TECHNICAL SUPPORT 1 SOFTWARE ENGINEER Isidro Arrington, B.Ch. LAB HLA ORDERABLES F inal Result Performing Organization Address [facility] de Phone Number [facility] [address] DBB8 [facility] 200 [place] [address] * HLA Antibody Summary Report (06/29/2024 12:51 PM TECHNICAL SUPPORT 1 SOFTWARE ENGINEER) 06/29/2024 12:5 1 PM TECHNICAL SUPPORT 1 SOFTWARE ENGINEER Narrative 07/01/2024 10:47 AM TECHNICAL SUPPORT 1 SOFTWARE ENGINEER Ordered by an unspecified provider. Default Authenticator Jean LAB HLA ORDERABLES Fin al Result * Transplant ABO Confirmation (06/29/2024 12:51 PM TECHNICAL SUPPORT 1 SOFTWARE ENGINEER) Transplant ABO Confirmation A Pos 06/29/2024 1:57 PM TECHNICAL SUPPORT 1 SOFTWARE ENGINEER ETRM Blood (Blood, Venous) 06/29/2024 12:51 PM TECHNICAL SUPPORT 1 SOFTWARE ENGINEER 06/29/2024 1:21 PM TECHNICAL SUPPORT 1 SOFTWARE ENGINEER Isidro Arrington, B.Ch. LAB BLOOD BANK TEST ORDERABLES Final Result Performing Organization Address [facility] Co de Phone Number [facility] [address] [place] [address], [place] ETRM [facility] [address] [place] [address] * Cytomegalovirus Ab, IgM and IgG (06/29/2024 12:51 PM TECHNICAL SUPPORT 1 SOFTWARE ENGINEER) Pathologist [facility] Cytomegalovirus Ab, IgM, S Negative Negative 06/30/2024 8:52 AM TECHNICAL SUPPORT 1 SOFTWARE ENGINEER [facility] Cytomegalovirus Ab, IgG, S Negative Negative 06/30/2024 8:52 AM TECHNICAL SUPPORT 1 SOFTWARE ENGINEER [facility] Blood (Blood, Venous) 06/29/2024 12:51 PM TECHNICAL SUPPORT 1 SOFTWARE ENGINEER 06/29/2024 4:15 PM TECHNICAL SUPPORT 1 SOFTWARE ENGINEER Isidro Arrington B.Ch. LAB MICROBIOLOGY - B LOOD ORDERABLES Final Result [facility] [address] [place] [address] [facility] [address] [place] [address] * HLA Class II SAB Antibody Screen (06/29/2024 12:51 PM TECHNICAL SUPPORT 1 SOFTWARE ENGINEER) [facility] Class II SAB Overall Result Positive Not Applicable 07/01/2024 9:07 AM TECHNICAL SUPPORT 1 SOFTWARE ENGINEER DBB8 Class II SAB >=5000 MFI NONE 07/01/2024 9:07 AM TECHNICAL SUPPORT 1 SOFTWARE ENGINEER DBB8 Class II SAB 1271-1016 MFI see below 07/01/2024 9:07 AM TECHNICAL SUPPORT 1 SOFTWARE ENGINEER DBB8 Comment:DP:14:01 Class II SAB 500-1999 MFI see below 07/01/2024 9:07 AM TECHNICAL SUPPORT 1 SOFTWARE ENGINEER DBB8 Comment: DR:7 4 DQ:8 6 DP:1 10 SAB DRB1 Specificity see below 07/01/2024 9:07 AM TECHNICAL SUPPORT 1 SOFTWARE ENGINEER DBB8 Comment: 7(07:01)[1414], 4(04:04)[518] Format: Serologic Eq.(DRB1 Mol. Allele)[Normalized MFI] NOTE: Data is displayed in descending order by Mean Fluorescence Intensity (MFI). Serologic equivalents can be displayed multiple times for different molecular alleles. SAB [id number] Specificity NONE 07/01/2024 9:07 AM TECHNICAL SUPPORT 1 SOFTWARE ENGINEER DBB8 SAB DQB1 Specificity see below 07/01/2024 9:07 AM TECHNICAL SUPPORT 1 SOFTWARE ENGINEER DBB8 Comment: 8(A*03:01;B*03:02)[1092], 8(A*02:01;B*03:02)[817], 6(A*01:03;B*06:01)[588] Format: Serologic Eq.(DQA1;DQB1 Mol. Allele)[Normalized MFI] NOTE: Data is displayed in descending order by Mean Fluorescence Intensity (MFI). Serologic equivalents can be displayed multiple times for different molecular alleles. SAB DPB1 Specificity see below 07/01/2024 9:07 AM TECHNICAL SUPPORT 1 SOFTWARE ENGINEER DBB8 Comment: 14(A*02:01;B*14:01)[8934], 1(A*02:01;B*01:01)[939], 10(A*02:02;B*10:01)[715] Format: Serologic Eq.(DPA1;DPB1 Mol. Allele)[Normalized MFI] NOTE: Data is displayed in descending order by Mean Fluorescence Intensity (MFI). Serologic equivalents can be displayed multiple times for different molecular alleles. ----ADDITIONAL INFORMATION---- Method: Luminex Flow Cytometry CLIA: [id number] CLIA Standards Engineer: NIXON FLORENTINO,Ph.D. Blood (Blood, Venous) 06/29/2024 12:51 PM TECHNICAL SUPPORT 1 SOFTWARE ENGINEER 06/29/2024 2:33 PM TECHNICAL SUPPORT 1 SOFTWARE ENGINEER Isidro Arrington, B.Ch. LAB HLA ORDERABLES F inal Result [facility] [address] [place] [address], [facility] DBB8 [facility] [address] [place] [address] * HLA Class I SAB Antibody Screen (06/29/2024 12:51 PM TECHNICAL SUPPORT 1 SOFTWARE ENGINEER) Class I SAB Overall Result Negative Not Applicable 07/01/2024 9:03 AM TECHNICAL SUPPORT 1 SOFTWARE ENGINEER DBB8 Class I SAB >=5000 MFI NONE 07/01/2024 9:03 AM TECHNICAL SUPPORT 1 SOFTWARE ENGINEER DBB8 Class I SAB 8510-6007 MFI NONE 07/01/2024 9:03 AM TECHNICAL SUPPORT 1 SOFTWARE ENGINEER DBB8 Class I SAB 500-1999 MFI NONE 07/01/2024 9:03 AM TECHNICAL SUPPORT 1 SOFTWARE ENGINEER DBB8 SAB A Specificity NONE 07/01/2024 9:03 AM TECHNICAL SUPPORT 1 SOFTWARE ENGINEER DBB8 SAB B Specificity NONE 07/01/2024 9:03 AM TECHNICAL SUPPORT 1 SOFTWARE ENGINEER DBB8 SAB C Specificity NONE 07/01/2024 9:03 AM TECHNICAL SUPPORT 1 SOFTWARE ENGINEER DBB8 Comment: ----ADDITIONAL INFORMATION---- Method: Luminex Flow Cytometry CLIA: [id number] CLIA Standards Engineer: NIXON FLORENTINO,Ph.D. Blood (Blood, Venous) 06/29/2024 12:51 PM TECHNICAL SUPPORT 1 SOFTWARE ENGINEER 06/29/2024 2:33 PM TECHNICAL SUPPORT 1 SOFTWARE ENGINEER us Isidro Arrington, B.Ch. LAB HLA ORDERABLES F inal Result Performing Organization Address [facility] de Phone Number [facility] [address] DBB8 [facility] 200 [place] [address] * (ABNORMAL) Iron and Total Iron-Binding Capacity (06/29/2024 12:51 PM TECHNICAL SUPPORT 1 SOFTWARE ENGINEER) [facility] Iron 192(H) 35 - 145 mcg/dL 06/29/2024 2:01 PM TECHNICAL SUPPORT 1 SOFTWARE ENGINEER DTL Total Iron Binding Capacity 178(L) 250 - 400 mcg/dL 06/29/2024 2:01 PM TECHNICAL SUPPORT 1 SOFTWARE ENGINEER DTL Percent Saturation >90(H) 14 - 50 % 06/29/2024 2:01 PM TECHNICAL SUPPORT 1 SOFTWARE ENGINEER DTL Blood (Blood, Venous) 06/29/2024 12:51 PM TECHNICAL SUPPORT 1 SOFTWARE ENGINEER 06/29/2024 1:34 PM TECHNICAL SUPPORT 1 SOFTWARE ENGINEER us Isidro Arrington, B.Ch. LAB BLOOD ADD-ON Fin al Result Performing Organization Address [facility] Co de Phone Number [facility] [address] [place] [address] * (ABNORMAL) Ferritin (06/29/2024 12:51 PM TECHNICAL SUPPORT 1 SOFTWARE ENGINEER) Ferritin, S 7389(H) 11 - 328 mcg/L 06/29/2024 2:21 PM TECHNICAL SUPPORT 1 SOFTWARE ENGINEER DTL Blood (Blood, Venous) 06/29/2024 12:51 PM TECHNICAL SUPPORT 1 SOFTWARE ENGINEER 06/29/2024 1:34 PM TECHNICAL SUPPORT 1 SOFTWARE ENGINEER Isidro Arrington B.Ch. LAB BLOOD ADD-ON Fin al Result [facility] [address] [place] [address], [facility] DTL [facility] [address] [place] [address] * Myeloid Neoplasms, Comprehensive OncoHeme Next-Generation Sequencing (06/11/2024 2:00 PM TECHNICAL SUPPORT 1 SOFTWARE ENGINEER) Pathologist [facility] Specimen Type Bone marrow 06/21/2024 3:32 PM TECHNICAL SUPPORT 1 SOFTWARE ENGINEER DTL Indication for Test Chronic myeloid neoplasm 06/21/2024 3:32 PM TECHNICAL SUPPORT 1 SOFTWARE ENGINEER DTL NGSHM Result See Interpretation 03/2024 3:32 PM TECHNICAL SUPPORT 1 SOFTWARE ENGINEER DTL Pathogenic Mutations Detected 1) CALR: Chr19(GRCh37):g.1305 4627_13054628insTTGT C; NM_004343.3(CALR):c. 1154_1155insTTGTC; p.Yvh907Vrgje*47 (49%) 2) SF3B1: Chr2(GRCh37):g.65956 6834T>C; NM_012433.2(SF3B1):c .2098A>G; p.Gzu875Qeq (51%) No other pathogenic mutations were detected in the other genes tested on the panel at the reportable limit of assay detection. See below for Variants of Unknown Significance and Additional Notes. Please see the section of Panel Gene List below for the complete list of genes tested. 06/21/2024 3:32 PM TECHNICAL SUPPORT 1 SOFTWARE ENGINEER DTL Clinical Trials Information regarding possible clinical trials for this patient can be found at the following sites: 1). ClinicalTrials.gov: http://clinicaltrial s.gov/ct2/search/adv anced 2). [facility]: http://www.marino.edu/ research/clinical-tr ials 3). National Cancer [place]: http://www.cancer.go v/clinicaltrials/sea [facility] 4). The Leukemia & Lymphoma Society's Clinical Trial Support Center https://www.hematolo gy.org/education/cli marlon/clinical-tri xd-igbmypo-krxicj 06/21/2024 3:32 PM TECHNICAL SUPPORT 1 SOFTWARE ENGINEER DTL Variants of Unknown Significance (VUS) None 06/21/2024 3:32 PM TECHNICAL SUPPORT 1 SOFTWARE ENGINEER DTL Additional Information None 06/21/2024 3:32 PM TECHNICAL SUPPORT 1 SOFTWARE ENGINEER DTL Method DNA is extracted from peripheral [...] developed and its performance characteristics determined by [facility] in a manner consistent with CLIA requirements. This test has not been cleared or approved by the U.S. Food and Drug Administration. *Some genetic or genomic alterations such as very large insertion/deletion events, copy number alterations (UNIVERSITY REGISTRAR) and gene translocation events are not detected by this assay. 06/21/2024 3:32 PM TECHNICAL SUPPORT 1 SOFTWARE ENGINEER DTL Disclaimer CLINICAL DISCLAIMER The finding of [...] (clonal cytopenias of uncertain significance, CCUS) [PMIDs: [id number], [id number], [id number], and [id number]]. Distinction between CHIP or CCUS and a [...] very large insertion/deletion events, copy number alterations (UNIVERSITY REGISTRAR) and gene translocation events are not detected by this assay. 06/21/2024 3:32 PM [facility] OncoHeme Panel Gene list [id number] (NM_[id number]) 5'UTR, [...] time of the report. 06/21/2024 3:32 PM TECHNICAL SUPPORT 1 SOFTWARE ENGINEER DTL Released by Signing Pathologist: Linda Ardon 06/21/2024 3:32 PM TECHNICAL SUPPORT 1 SOFTWARE ENGINEER DTL Interpretation These results are considered ancillary findings and require complete integration with the current pathology case [id number] for final interpretation. The result should NOT be interpreted in isolation for the purposes of diagnosis or clinical management. 1) CALR: Chr19(GRCh37):g.1305 4627_13054628insTTGT C; NM_004343.3(CALR):c. 1154_1155insTTGTC; p.Krs174Owrdn*47 Normal gene/protein function: The CALR gene, located on chromosome 19p13.2, encodes for calreticulin, a multifunctional protein playing roles in endoplasmic reticulum (ER) protein folding, calcium homeostasis, cellular proliferation, apoptosis and immunogenic cell (Callie et al., 2013, [id number]). Mutation effect: The p.Nmu695Pgwsw*47 frameshift alteration results in a 5 base-pair [...] a C-terminus neoepitope (Jocy et al., 2013, [id number]; Callie et al., 2013, 36377083; Asya et al., 2019, [id number]). CALR mutations have been identified in the neoplastic hematopoietic stem and progenitor cells. The mutant CALR protein has been shown to bind and constitutively activate MPL and the downstream ELSI-STAT pathway. The interaction between the mutant CALR and MPL occurs presumptively through a CALR conformational change induced by the C-terminus neoepitope (Liliamki et al., 2016, [id number]; 2017, [id number]; Makenna et al., 2016, 43298164). It has been reported that CALR type 1/like and type 2/like mutants were sufficient to induce a MPN phenotype in retroviral mouse models (Nestor et al., 2016, 94132905; Wang et al., 2019, 66435115). Disease associations: Frameshift indel mutations in CALR [...] chronic myeloid leukemia (3%)(Jocy et al., 2013, 65330183; Callie et al., 2013, 81770835; Kaye et al., 2014, 94081569; Rotlouisao et al., 2014, 61394040; Tefferi et al., 2014, 15443652). Therapeutic implications: Currently, there is no therapy [...] or intolerance of hydroxyurea (https://www.accessd betzaida.fda.gov/drugsatf da_docs/label/ 03938b228tyn.pdf). Ruxolitinib demonstrated efficacy in improving constitutional symptoms and reducing spleen size (Connie et al., 2012, 83858413; Henok et al., 2012, 19716179). In a phase 2 clinical trial, it demonstrated modest antileukemic activity as a single agent in patients with refractory post-MPN AML (Gloria et al., 2012, [id number]). The FDA has also approved fedratinib, a JAK2 inhibitor that reduces phosphorylation of STAT3/5, for the treatment of adults with intermediate-2 or high-risk primary or secondary MF (i.e. post-polycythemia vera or post-essential thrombocythemia MF) (https://www.accessd betzaida.fda.gov/drugsatf da_docs/label/ 16565p047lye.pdf) 2) SF3B1: Chr2(GRCh37):g.67411 6834T>C; NM_012433.2(SF3B1):c .2098A>G; p.Yyv120Ysm Normal gene/protein function: The SF3B1 gene, located on chromosome 2q33.1, encodes subunit 1 of the splicing factor 3b protein complex. This complex is a member of the RNA spliceosome and is involved in 3' splice site recognition and pre-mRNA processing during gene verifying machine operator (Milo et al., 2014, 86275151; Natanael et al., 2013, 77000695; Kassie et al., 2011, 99384326). Mutation effect: The missense c.2098A>G (p.K700E) variant occurs commonly in hematologic neoplasms and accounts for more than half of somatic SF3B1 mutations. Mutations in SF3B1 contribute to tumorigenesis in hematologic malignancies through induction of abnormal verifying machine operator and alternative gene splicing (Bobeba et al., 2014, 32437454; Calexusola et al., 2013, 46305661; Kassie et al., 2011, 07110770). Disease associations: Somatic mutations in SF3B1 have been identified in both myeloid and lymphoid tumors with similar mutation distribution (Natanael et al., 2013, 70517971; Colin and Garibay, 2013, 29788558; Pamela et al., 2011, 85449462; Janine et al., 2011, 39242145). SF3B1 is mutated in 20-28% of myelodysplastic syndrome (MDS) and is particularly prevalent (>80%) in MDS with ring sideroblasts (MDS-RS) and the myeloproliferative/m yelodysplastic neoplasm refractory anemia with ring sideroblasts associated with marked thrombocytosis (MDS/MPN-RS-T)(Richard sands and You, 2015, 23813406; Malcovati et al., 2015, 85645132; Chase et al.,2013, 50964657). The majority of studies showed good prognosis in WS9V2-rfdryoh low-risk MDS(Malcovati et al., 2015, 60954066; Evercovati et al., 2014, 51999300; Hattie et al., 2015, 81427119; Natanael et al., 2013, 54141606; Mame and You, 2015, 03344592). YK3E3-joyjsv MDS has been proposed as a distinct disease subtype by the International Working Group for the Prognosis of MDS with specified diagnostic and exclusion criteria (Janine et al., 2020, 67068694). In acute myeloid leukemia (AML), SF3B1 mutations are seen in approximately 11% of secondary AML and only 1% of de moe AML; they are highly associated with secondary AML and a worse clinical outcome (Zully et al., 2015, 91884557). In chronic lymphocytic leukemia (CLL), SF3B1 mutations are seen in approximately 10-15% of cases and are more commonly associated with advanced disease and poor prognosis (Colin and Garibay, 2013, 29542150; Natanael et al., 2013, 88681296). Therapeutic implications: There is no currently available [...] (RBC) units over 8 weeks (https://www.fda.gov /drugs/resources-inf lapbaujp-piogxock-tq ugs/yja-fjncmttl-d pqcsqbopqgn-mgyu-ncd uol-zdfltv-tof). 06/21/2024 3:32 PM TECHNICAL SUPPORT 1 SOFTWARE ENGINEER DTL 06/11/2024 2:00 PM TECHNICAL SUPPORT 1 SOFTWARE ENGINEER 06/12/2024 8:06 AM TECHNICAL SUPPORT 1 SOFTWARE ENGINEER Janusz Ardon LAB GENETIC TESTING Ese abraham Result [facility] [address] [place] [address], [facility] DTL 200 [facility] [address] [place] [address] * Chromosome Analysis, Hematologic Disorders, Bone Marrow (06/11/2024 2:00 PM TECHNICAL SUPPORT 1 SOFTWARE ENGINEER) Pathologist [facility] Result Summary Abnormal 06/25/2024 3:31 PM TECHNICAL SUPPORT 1 SOFTWARE ENGINEER DTL Karyotype 46,XX,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] 06/25/2024 3:31 PM TECHNICAL SUPPORT 1 SOFTWARE ENGINEER DTL Reason for referral history of chronic myeloid neoplasm 06/25/2024 3:31 PM TECHNICAL SUPPORT 1 SOFTWARE ENGINEER DTL Specimen Bone Marrow 06/25/2024 3:31 PM TECHNICAL SUPPORT 1 SOFTWARE ENGINEER DTL Method Culture without mitogens 06/25/2024 3:31 PM TECHNICAL SUPPORT 1 SOFTWARE ENGINEER DTL Banding Method Band Resolution: <400 Stain Name Cells Analyzed Cells Karyograms Counted Prepared GTL 16 0 2 Total 16 0 2 Conley to Stain Name: GTL=G-banding; QFQ=Q-banding; DAPI=DAPI-stain ing; CBL=C-banding; AGNOR=Silver-st aining; NON=Non-banded The sum of Cells Analyzed and Cells Counted equals the total cells examined. 06/25/2024 3:31 PM TECHNICAL SUPPORT 1 SOFTWARE ENGINEER DTL Additional Information Previous Studies DATE SPECIMEN RESULT 06/01/2020 Marrow 13q- in 14/20 metaphases 06/06/2021 Marrow 13q- in 16/20 metaphases A portion of the testing process was performed at [facility] site [id number]. 06/25/2024 3:31 PM TECHNICAL SUPPORT 1 SOFTWARE ENGINEER DTL Released by Allison Capellan, Ph.D. 06/25/2024 3:31 PM TECHNICAL SUPPORT 1 SOFTWARE ENGINEER DTL Interpretation The result is abnormal. 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 This test was ordered in the context of a [facility] pathology consultation/ca se (#[id number]), and this result should be interpreted within the context of the pathology consultation/re port. 06/25/2024 3:31 PM TECHNICAL SUPPORT 1 SOFTWARE ENGINEER DTL Bone Marrow 06/11/2024 2:00 PM TECHNICAL SUPPORT 1 SOFTWARE ENGINEER 06/12/2024 8:11 AM TECHNICAL SUPPORT 1 SOFTWARE ENGINEER Janusz Ardon LAB GENETIC TESTING Ese rosario Result [facility] [address] [place] [address], [facility] DTL 200 [facility] [address] [place] [address] * [place] DX BONE MARROW BX & ASPIR (06/11/2024 2:00 PM TECHNICAL SUPPORT 1 SOFTWARE ENGINEER) Bone Marrow Narrative MMODAL - 06/11/2024 2:00 PM TECHNICAL SUPPORT 1 SOFTWARE ENGINEER Benja Worrell R.N. 06/11/2024 2:15 PM Biopsy Bone Marrow, Sedated Performed by: Benja Worrell R.N. Authorized by: Janusz Govea M.B.B.S. Care team members present 1. Benja Worrell R.N. 2. Remberto Ward MLS(ASCP) PROCEDURE DETAILS [...] instructions provided COMMENTS Lidocaine 1% 200 mg. Janusz AlexandraS. PROCEDURE/MINOR SURGICAL ORDERABLES Final Result MMODAL NA * (ABNORMAL) LD (Lactate Dehydrogenase) (06/11/2024 12:45 PM TECHNICAL SUPPORT 1 SOFTWARE ENGINEER) Lactate Dehydrogenase (LD), S 763(H) 122 - 222 U/L 06/11/2024 2:03 PM TECHNICAL SUPPORT 1 SOFTWARE ENGINEER DTL Blood (Blood, Venous) 06/11/2024 12:45 PM TECHNICAL SUPPORT 1 SOFTWARE ENGINEER 06/11/2024 1:23 PM TECHNICAL SUPPORT 1 SOFTWARE ENGINEER Janusz Ardon LAB BLOOD NON ADD-ON Fin al Result [facility] [address] [place] [address], [place] [facility] [address] [place] [address] * Hematopathology (06/11/2024 12:00 AM TECHNICAL SUPPORT 1 SOFTWARE ENGINEER) 06/14/2024 2:[address] [facility] Report electronically signed by Kristian Feliz M.D. I verify that I have examined all relevant slides/materials for the specimen(s) and rendered or confirmed the diagnosis. 06/14/2024 2:[address] [facility] Gross Description B: Core biopsy specimens were [...] was decalcified prior to processing. Grossed by MBCain. C: Received in formalin labeled with the patient's name, medical record number, and bone marrow clot is a 3.0 x 1.0 x 0.5 cm aggregateof dark red bone marrow clot material. The specimen is submitted en toto in cassette C1. Grossed by MBB. 06/14/2024 2:[address] 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 See cytogenetics report for complete details. Signed by Kristian Feliz M.D. 06/28/2024 12:59 PM ADDENDUM Molecular analysis for next generation sequencing (NGSHM), bone marrow ([id number]; 06/11/2024): Pathogenic Mutations Detected: 1) CALR: Chr19(GRCh37):g.01947 627_13054628insTTGTC; NM_004343.3(CALR):c.1 154_1155insTTGTC; p.Ger277Hnbwc*47 (49%) 2) SF3B1: Chr2(GRCh37):g.783941 834T>C; NM_012433.2(SF3B1):c. 2098A>G; p.Ush072Nyu (51%) No other pathogenic mutations were detected [...] data. Molecular Hematopathology studies interpreted by Murphy HagenBZahraaS. Signed by Maureen Barbour M.D., Ph.D. 06/22/2024 9:23 AM 06/28/2024 12:[address] [facility] Comment:REVISED RESULTS Interpretation FINAL DIAGNOSIS Peripheral blood, [...] testing. See separate report. 06/28/2024 12:59 PM TECHNICAL SUPPORT 1 SOFTWARE ENGINEER DHPM 06/11/2024 06/11/2024 1:3 3 PM TECHNICAL SUPPORT 1 SOFTWARE ENGINEER Janusz Ardon LAB SURG PATH ORDERABLES Edited Result - Final [facility] [address] [place] [address], [facility] [address] [place] [address] * NITRIC OXIDE STUDY, RIGHT HEART CATHETERIZATION [...] M.D. LAB BLOOD ADD-ON Final Resu lt [facility] [address] [place] [address], [facility] CN[facility] in [address] [address] * (ABNORMAL) Manual Differential, Blood (04/26/2024 2:25 [...] M.D. LAB BLOOD ADD-ON Final Resu lt [facility] [address] [place] [address], [facility] in [address] [address] * CT Chest Angiogram with IV Contrast (06/07/2021 10:15 AM TECHNICAL SUPPORT 1 SOFTWARE ENGINEER) Anatomical Region Laterality Modality Chest, Cardiovascular RST LO S, Thoracic ARZ LOS, Thoracic FLA LOS, Vascular Interventional ARZ LOS N/A Computed Tomography, Compute d Tomography 06/07/2021 10:3 8 AM TECHNICAL SUPPORT 1 SOFTWARE ENGINEER Impressions 06/07/2021 11:28 AM TECHNICAL SUPPORT 1 SOFTWARE ENGINEER 1. No acute pulmonary emboli. 2. Scattered groundglass opacities and mosaic attenuation throughout the lungs. Findings can be compatible with an infectious/inflammatory process versus pulmonary edema. 3. Small left pleural effusion and pericardial effusion. 4. Partially visualized abdominal ascites. Narrative 06/07/2021 11:28 AM TECHNICAL SUPPORT 1 SOFTWARE ENGINEER EXAM: CT CHEST ANGIOGRAM WITH IV CONTRAST [...] visualized abdominal ascites. Laurita Lopez P.A.-C. M.S. IMG CT PROCE DURES Final Result from Last 3 Months or Most Recently Relevant to Health Maintenance Insurance MEDICARE [facility] Advance Directives For more information, please contact: [phone] * Full Code (Latest Code Status on [...] Answer Comments Full Code: Discussed Care Teams Poultry Hatchery Supervisor Relationship Specialty Start Date End Date Elsewhere, Pcp PCP - General Internal Medicine 7/19/24
--- OUTSIDE RECORDS SUMMARY | 2024-07-21 11:42 | XMS_ITS | Encounter Summary ---
Author Organization [facility] Address [address] [place] [address] Care Team Providers Care Drive Man Name Role Phone Elsewhere, Pcp Primary Care Provider Unavailabl e Reason for Visit * Reason Onset Date Comments Symptom Assessment 07/20/2024 Encounter Details Date Type Department Care Team (Latest Contact Info) Description 07/20/2024 Clinical Communication Department of Cardiovascular Medicine in [place], [place] [address] [place] [phone] Matthew Mayes M.D. [address] [place] [phone] Symptom Assessment Social History Tobacco Use Types Packs/Day Years Used Date Smoking Tobacco: Former Cigarettes 2012 Passive Smoke Exposure: Never Smokeless Tobacco: Never Comments:still smokes mariju shady Alcohol Use Standard Drinks/Week Comments Yes 0 (1 standard drink = 0.6 oz pur e alcohol) occasional [facility] Utilities Answer Date Recorded In the past 12 months has e [employer], gas, oil, or water [employer] threatened to shut off services in your [...] your living situation today? I have a [facility] place to live 07/09/2024 Comments No Sex and Gender Information Value Date Recorded Sex Assigned at Female 07/24/2021 11:03 AM BRAID MAKER Legal Sex Female 9:12 PM BRAID MAKER Gender Identity Female 07/24/2021 11:03 AM BRAID MAKER Sexual Orientation Straight 07/24/2021 11 :03 AM BRAID MAKER documented as of this encounter Miscellaneous Notes * Telephone Encounter - Azucena Fair R.N. - 07/20/2024 8:58 AM BRAID MAKER ASSESSMENT 07/20 PLAN Present to local ER. Disposition/Recommendation: recommended to report to the nearest emergency department. Information/Education: patient/caller able to teach back. Caller agreeable to plan of care: yes. The following references were used: nursing clinical judgement. Patient' called stating that patient was hospitalized at [facility] a [facility] for diuresis, discharged 2-3 days ago. Send home with Torsemide 60 mg BID, continued to get more SOB, swellingand pain in bilateral lower extremities. is wrapping legs, pt. Is still struggling to perform ADLs independently, unable to lay flat d/t SOB. Per clinical assessment that patient is not improv ing with PO diuretics at home, recommendation for her to go to local ER for IV diuretics, leg wrapping, and request further assistance such as palliative care since was asking about hospice care. Recommended for local providers to contact Dr. Mayes and hematology provider at [facility] with questions in regards to patient care. able to verbalize plan and patient in agreement with plan. D MAKER documented in this encounter Plan of Treatment Upcoming Encounters Date Type Department Care Team (Late st Contact Info) Description 08/10/2024 8:30 AM BRAID MAKER Telemedicine Division of Hematology in [place], [place] [address] [place] [phone] Isidro Zamarripa M.B., B.Ch. [address] [place] [phone] 08/26/2024 8:30 AM BRAID MAKER Appointment Department of Laboratory Medicine and Pathology, [facility], in [place], [place] [address] [place] [phone] Matthew Mayes M.D. [address] [place] [phone] 08/26/2024 9:00 AM BRAID MAKER Appointment Department of Cardiac Rehabilitation in [place], [place] [address] [place] [phone] Matthew Mayes M.D. [address] [place] [phone] 08/26/2024 11:00 AM BRAID MAKER Clinical Support Department of Nutrition and Diabetes Education in [place], [place] [address] [place] [phone] Matthew Mayes M.D. [address] [place] [phone] Karmen Zambrano, JOSE, LD [address] [place] [phone] 08/27/2024 10:30 AM BRAID MAKER Office Visit Department of Cardiovascular Medicine in [place], [place] [address] [place] [phone] Matthew Mayes M.D. [address] [place] [phone] 09/14/2024 12:00 PM BRAID MAKER Appointment Department of Laboratory Medicine [facility], [facility] [place], [place] [address] [place] [phone] Janusz Govea M.B.B.S. [address] [place] [phone] 09/14/2024 2:00 PM BRAID MAKER Office Visit Division of Hematology in [place], [place] [address] [place] [phone] Janusz Govea M.B.B.S. [address] [place] [phone] documented as of this encounter Visit Diagnoses Not on filedocumented in this encounter Care Teams Drive Man Relationship Specialty Start Date End Date Elsewhere, Pcp PCP - General Internal Medicine 01/30/24 documented as of this encounter
--- OUTSIDE RECORDS SUMMARY | 2024-07-21 11:42 | XMS_ITS | Encounter Summary ---
Author Organization [facility] Address [address] [place] [address] Care Team Providers Care Vice President Sales And Marketing Name Role Phone Elsewhere, Pcp Primary Care Provider Unavailabl e Encounter Details Date Type Department Care Team (Late st Contact Info) Description 07/20/2024 Orders Only Department of Cardiovascular Medicine in [place], [place] [address] [place] [phone] Fernando Schmidt, P.A.-C. [address] [place] [phone] Fluid Overload Unspecified; Hypertension Pulmonary (HCC) Social History Tobacco Use Types Packs/Day Years Used Date Smoking Tobacco: Former Cigarettes 2012 Passive Smoke Exposure: Never Smokeless Tobacco: Never Comments:still smokes mariju shady Alcohol Use Standard Drinks/Week Comments Yes 0 (1 standard drink = 0.6 oz pur e alcohol) occasional [facility] Utilities Answer Date Recorded In the past 12 months has e [employer], gas, oil, or water [employer] threatened to shut off services in your [...] your living situation today? I have a [facility] place to live 07/09/2024 Comments No Sex and Gender Information Value Date Recorded Sex Assigned at Female 07/24/2021 11:03 AM JOGGER OPERATOR Legal Sex Female 9:12 PM JOGGER OPERATOR Gender Identity Female 07/24/2021 11:03 AM JOGGER OPERATOR Sexual Orientation Straight 07/24/2021 11 :03 AM JOGGER OPERATOR documented as of this encounter Plan of Treatment Upcoming Encounters Date Type Department Care Team (Late st Contact Info) Description 08/10/2024 8:30 AM JOGGER OPERATOR Telemedicine Division of Hematology in [place], [place] 200 [place] [phone] Isidro Zamarripa M.B., B.Ch. 200 [place] [phone] 08/26/2024 8:30 AM JOGGER OPERATOR Appointment Department of Laboratory Medicine and Pathology, [facility], in [place], [place] [address] [place] [phone] Matthew Mayes M.D. [address] [place] [phone] 08/26/2024 9:00 AM JOGGER OPERATOR Appointment Department of Cardiac Rehabilitation in [place], [place] [address] [place] [phone] Matthew Mayes M.D. [address] [place] [phone] 08/26/2024 11:00 AM JOGGER OPERATOR Clinical Support Department of Nutrition and Diabetes Education in [place], [place] [address] [place] [phone] Matthew Mayes M.D. [address] [place] [phone] Karmen Zambrano, EVIEN, LD [address] [place] [phone] 08/27/2024 10:30 AM JOGGER OPERATOR Office Visit Department of Cardiovascular Medicine in [place], [place] [address] [place] [phone] Matthew Mayes M.D. [address] [place] [phone] 09/14/2024 12:00 PM JOGGER OPERATOR Appointment Department of Laboratory Medicine and Pathology, [facility], in [place], [place] [address] [place] [phone] Janusz Govea M.B.B.S. [address] [place] [phone] 09/14/2024 2:00 PM JOGGER OPERATOR Office Visit Division of Hematology in [place], [place] [address] [place] [phone] Janusz Govea M.B.B.S. [address] [place] [phone] documented as of this encounter Visit Diagnoses Diagnosis Fluid Overload Unspecified Hypertension Pulmonary (HCC) documented in this encounter Care Teams Vice President Sales And Marketing Relationship Specialty Start Date End Date Elsewhere, Pcp PCP - General Internal Medicine 01/30/24 documented as of this encounter
--- OUTSIDE RECORDS SUMMARY | 2024-07-21 11:42 | XMS_ITS ---
Author Organization [facility] Address [address] [place] [address] Care Team Providers Care Transformation Coach Name Role Phone Unavailable Unavailable Unavailable Surgery Details Not on file Complications Check Surgery Details section. Procedure Estimated Blood Loss Check Surgery Details section. Procedure Findings Check Surgery Details section. Procedure Specimens Taken Check Surgery Details section.
--- OUTSIDE RECORDS SUMMARY | 2024-07-21 11:42 | XMS_ITS | Encounter Summary ---
Author Organization [facility] Address [address] [place] [address] Care Team Providers Care Sheetrock Applicator Name Role Phone Elsewhere, Pcp Primary Care Provider Unavailabl e Reason for Visit * Reason Onset Date Comments Rx Prior Authorization 07/19/2024 Torsemide 60 mg tablet Encounter Details Date Type Department Care Team (Latest Contact Info) Description 07/19/2024 Clinical Communication Pharmacy Prior Auth [phone] Jolene Vargas, DANNY, C.N.P. [address] [place] [phone] Rx Prior Authorization (Torsemide 60 mg tablet) Social History Tobacco Use Types Packs/Day Years Used Date Smoking Tobacco: Former Cigarettes 1 7 - 2012 Passive Smoke Exposure: Never Smokeless Tobacco: Never Comments:still smokes mariju shady Alcohol Use Standard Drinks/Week Comments Yes 0 (1 standard drink = 0.6 oz pur e alcohol) occasional [facility] Utilities Answer Date Recorded In the past 12 months has [employer], gas, oil, or water [employer] threatened to shut off services in your [...] Recorded Dental: Regular Dentist Unknown 09/06/19 21 Housing Stability Answer Date Recorded What is your living situation today? [facility] 07/09/2024 Comments No Sex and Gender Information Value Date Recorded Sex Assigned at Female 07/24/2021 11:03 AM PORTABLE ROUTER OPERATOR Legal Sex Female 9:12 PM PORTABLE ROUTER OPERATOR Gender Identity Female 07/24/2021 11:03 AM PORTABLE ROUTER OPERATOR Sexual Orientation Straight 07/24/2021 11 :03 AM PORTABLE ROUTER OPERATOR documented as of this encounter Miscellaneous Notes * Telephone Encounter - Fernando Schmidt PZahraaAZahraa-C. - 07/20/2024 5:11 PM PORTABLE ROUTER OPERATOR The Cardiology 5 team received notification that torsemide 60 mg tablets were not approved by her insurance. Therefore, I prescribed torsemide 20 mg tablets with recommendations to take 3 tablets twice a day (60 mg BID). understood without additional concerns. Prescription was sent to [facility] ABLE ROUTER OPERATOR documented in this encounter Plan of Treatment Upcoming Encounters Date Type Department Care Team (Late st Contact Info) Description 08/10/2024 8:30 AM PORTABLE ROUTER OPERATOR Telemedicine Division of Hematology in [place], [place] [address] [place] [phone] Isidro Zamarripa M.B., B.Ch. [address] [place] [phone] 08/26/2024 8:30 AM PORTABLE ROUTER OPERATOR Appointment Department of Laboratory Medicine and Pathology, [facility], in [place], [place] [address] [place] [phone] Matthew Mayes M.D. [address] [place] [phone] 08/26/2024 9:00 AM PORTABLE ROUTER OPERATOR Appointment Department of Cardiac Rehabilitation in [place], [place] [address] [place] [phone] Matthew Mayes M.D. [address] [place] [phone] 08/26/2024 11:00 AM PORTABLE ROUTER OPERATOR Clinical Support Department of Nutrition and Diabetes Education in [place], [place] [address] [place] [phone] Matthew Mayes M.D. [address] [place] [phone] Karmen Zambrano, EVIEN, LD [address] [place] [phone] 08/27/2024 10:30 AM PORTABLE ROUTER OPERATOR Office Visit Department of Cardiovascular Medicine in [place], [place] [address] [place] [phone] Matthew Mayes M.D. [address] [place] [phone] 09/14/2024 12:00 PM PORTABLE ROUTER OPERATOR Appointment Department of Laboratory Medicine and Pathology, [facility], in [place], [place] [address] [place] [phone] Janusz Govea M.B.B.S. [address] [place] [phone] 09/14/2024 2:00 PM PORTABLE ROUTER OPERATOR Office Visit Division of Hematology in [place], [place] [address] [place] [phone] Janusz Govea M.B.B.S. [address] [place] [phone] documented as of this encounter Visit Diagnoses Not on filedocumented in this encounter Care Teams Sheetrock Applicator Relationship Specialty Start Date End Date Elsewhere, Pcp PCP - General Internal Medicine 01/30/24 documented as of this encounter
--- OUTSIDE RECORDS SUMMARY | 2024-07-21 11:42 | XMS_ITS | Encounter Summary ---
Author Organization [facility] Address [address] [place] [address] Care Team Providers Care Shopfitter Name Role Phone Elsewhere, Pcp Primary Care Provider Unavailabl e Encounter Details Date Type Department Care Team (Late st Contact Info) Description 07/19/2024 Documentation Division of Hematology in [place], [place] [address] [place] [phone] Janusz Govea M.B.B.S. [address] [place] [phone] Social History Tobacco Use Types Packs/Day Years Used Date Smoking Tobacco: Former Cigarettes 2012 Passive Smoke Exposure: Never Smokeless Tobacco: Never Comments:still smokes mariju shady Alcohol Use Standard Drinks/Week Comments Yes 0 (1 standard drink = 0.6 oz pur e alcohol) occasional [facility] Utilities Answer Date Recorded In the past 12 months has [employer] gas, oil, or water [employer] threatened to shut off services in your [...] your living situation today? I have a [facility] place to live 07/09/2024 Comments No Sex and Gender Information Value Date Recorded Sex Assigned at Female 07/24/2021 11:03 AM PROFESSOR OF MANAGEMENT Legal Sex Female 9:12 PM PROFESSOR OF MANAGEMENT Gender Identity Female 07/24/2021 11:03 AM PROFESSOR OF MANAGEMENT Sexual Orientation Straight 07/24/2021 11 :03 AM PROFESSOR OF MANAGEMENT documented as of this encounter Progress Notes * Janusz Govea M.B.BZahraaS. - 07/19/2024 6:39 PM CST I spoke to Christian. She is having trouble breathing; was recently discharged from Cardiology on home oxygen. Advised return to emergency room. They will also contact Dr. Smith. ESSOR OF MANAGEMENT documented in this encounter Plan of Treatment Upcoming Encounters Date Type Department Care Team (Late st Contact Info) Description 08/10/2024 8:30 AM PROFESSOR OF MANAGEMENT Telemedicine Division of Hematology in [place], [place] [address] [place] [phone] Isidro Zamarripa M.B., B.. [address] [place] [phone] 08/26/2024 8:30 AM PROFESSOR OF MANAGEMENT Appointment Department of Laboratory Medicine and Pathology, [facility] in [place], [place] [address] [place] [phone] Matthew Mayes M.D. [address] [place] [phone] 08/26/2024 9:00 AM PROFESSOR OF MANAGEMENT Appointment Department of Cardiac Rehabilitation in [place], [place] [address] [place] [phone] Matthew Mayes M.D. [address] [place] [phone] 08/26/2024 11:00 AM PROFESSOR OF MANAGEMENT Clinical Support Department of Nutrition and Diabetes Education in [address] [phone] Matthew Mayes M.D. [address] [place] [phone] Karmen Zambrano, EVIEN, LD [address] [place] [phone] 08/27/2024 10:30 AM PROFESSOR OF MANAGEMENT Office Visit Department of Cardiovascular Medicine in [place], [place] [address] [place] [phone] Matthew Mayes M.D. [address] [place] [phone] 09/14/2024 12:00 PM PROFESSOR OF MANAGEMENT Appointment Department of Laboratory Medicine and Pathology, [facility], in [place], [place] [address] [place] [phone] Janusz Govea M.B.B.S. [address] [place] [phone] 09/14/2024 2:00 PM PROFESSOR OF MANAGEMENT Office Visit Division of Hematology in [place], [place] [address] [place] [address] Janusz Govea M.B.B.S. [address] [place] [phone] documented as of this encounter Visit Diagnoses Not on filedocumented in this encounter Care Teams Shopfitter Relationship Specialty Start Date End Date Elsewhere, Pcp PCP - General Internal Medicine 01/30/24 documented as of this encounter
--- OUTSIDE RECORDS SUMMARY | 2024-07-21 11:42 | XMS_ITS | Encounter Summary ---
Author Organization [facility] Address [address] [place] [address] Care Team Providers Care Job Honer Name Role Phone Elsewhere, Pcp Primary Care Provider Unavailabl e Reason for Visit * Reason Onset Date Comments Anxiety 07/19/2024 Encounter Details Date Type Department Care Team ([facility] st Contact Info) Description 07/19/2024 Clinical Communication Division of Hematology in [place], [place] [address] [place] [phone] Janusz Govea M.B.BZahraaS. [address] [place] [phone] Anxiety Social History Tobacco Use Types Packs/Day Years Used Date Smoking Tobacco: Former Cigarettes 7 2012 Passive Smoke Exposure: Never Smokeless Tobacco: Never Comments:still smokes mariju shady Alcohol Use Standard Drinks/Week Comments Yes 0 (1 standard drink = 0.6 oz pur e alcohol) occasional [facility] Utilities Answer Date Recorded In the past 12 months has [facility] [employer], gas, oil, or water [employer] threatened to shut off services in your [...] your living situation today? I have a [facility] place to live 07/09/2024 Comments No Sex and Gender Information Value Date Recorded Sex Assigned at Female 07/24/2021 11:03 AM STITCHER FEEDER Legal Sex Female 9:12 PM STITCHER FEEDER Gender Identity Female 07/24/2021 11:03 AM STITCHER FEEDER Sexual Orientation Straight 07/24/2021 11 :03 AM STITCHER FEEDER documented as of this encounter Plan of Treatment Upcoming Encounters Date Type Department Care Team (Late st Contact Info) Description 08/10/2024 8:30 AM STITCHER FEEDER Telemedicine Division of Hematology in [place], [place] 200 [place] [address] Isidro Zamarripa M.B., B.Ch. 200 [place] [phone] 08/26/2024 8:30 AM STITCHER FEEDER Appointment Department of Laboratory Medicine and Pathology, [facility], in [place], [place] [address] [place] [address] Matthew Mayes M.D. [address] [place] [phone] 08/26/2024 9:00 AM STITCHER FEEDER Appointment Department of Cardiac Rehabilitation in [place], [place] [address] [place] [address] Matthew Mayes M.D. [address] [place] [phone] 08/26/2024 11:00 AM STITCHER FEEDER Clinical Support Department of Nutrition and Diabetes Education in [place], [place] [address] [place] [phone] Matthew Mayes M.D. [address] [place] [phone] Karmen Zambrano, RDN, LD [address] [place] [phone] 08/27/2024 10:30 AM STITCHER FEEDER Office Visit Department of Cardiovascular Medicine in [place], [place] [address] [place] [address] Matthew Mayes M.D. [address] [place] [phone] 09/14/2024 12:00 PM STITCHER FEEDER Appointment Department of Laboratory Medicine and Pathology, [facility], in [place], [place] [address] [place] [address] Janusz Govea M.B.B.S. [address] [place] [phone] 09/14/2024 2:00 PM STITCHER FEEDER Office Visit Division of Hematology in [place], [place] [address] [place] [phone] Janusz Govea M.B.BZahraaS. [address] [place] [phone] documented as of this encounter Visit Diagnoses Not on filedocumented in this encounter Care Teams Job Honer Relationship Specialty Start Date End Date Elsewhere, Pcp PCP - General Internal Medicine 01/30/24 documented as of this encounter
--- OUTSIDE RECORDS SUMMARY | 2024-07-21 11:42 | XMS_ITS | Encounter Summary ---
Author Organization [facility] Address [address] [place] [address] Care Team Providers Care Grocery Store Courtesy Clerk Name Role Phone Elsewhere, Pcp Primary Care Provider Unavailabl e Encounter Details Date Type Department Care Team (Late st Contact Info) Description 07/20/2024 Orders Only Department of Cardiovascular Medicine in [place], [place] [address] [place] [phone] Fernando Schmidt, P.A.-C. [address] [place] [phone] Fluid Overload Unspecified (Primary Dx); Hypertension Pulmonary (HCC) Social History Tobacco Use Types Packs/Day Years Used Date Smoking Tobacco: Former Cigarettes 7 - 2012 Passive Smoke Exposure: Never Smokeless Tobacco: Never Comments:still smokes mariju shady Alcohol Use Standard Drinks/Week Comments Yes 0 (1 standard drink = 0.6 oz pur e alcohol) occasional [facility] Utilities Answer Date Recorded In the past 12 months has [facility] [employer], gas, oil, or water [employer] threatened to shut off services in your [...] your living situation today? I have a [facility] place to live 07/09/2024 Comments No Sex and Gender Information Value Date Recorded Sex Assigned at Female 07/24/2021 11:03 AM CYBER ANALYST Legal Sex Female 9:12 PM CYBER ANALYST Gender Identity Female 07/24/2021 11:03 AM CYBER ANALYST Sexual Orientation Straight 07/24/2021 11 :03 AM CYBER ANALYST documented as of this encounter Plan of Treatment Upcoming Encounters Date Type Department Care Team (Late st Contact Info) Description 08/10/2024 8:30 AM CYBER ANALYST Telemedicine Division of Hematology in [place], [place] 200 [place] [address] Isidro Zamarripa M.B., B.Ch. 200 [place] [phone] 08/26/2024 8:30 AM CYBER ANALYST Appointment Department of Laboratory Medicine and Pathology, [facility], in [place], [place] [address] [place] [address] Matthew Mayes M.D. [address] [place] [phone] 08/26/2024 9:00 AM CYBER ANALYST Appointment Department of Cardiac Rehabilitation in [place], [place] [address] [place] [address] Matthew Mayes M.D. [address] [place] [phone] 08/26/2024 11:00 AM CYBER ANALYST Clinical Support Department of Nutrition and Diabetes Education in [place], [place] [address] [place] [address] Matthew Mayes M.D. [address] [place] [phone] Karmen Zambrano, EVIEN, LD [address] [place] [phone] 08/27/2024 10:30 AM CYBER ANALYST Office Visit Department of Cardiovascular Medicine in [place], [place] [address] [place] [address] Matthew Mayes M.D. [address] [place] [phone] 09/14/2024 12:00 PM CYBER ANALYST Appointment Department of Laboratory Medicine and Pathology, [facility], in [place], [place] [address] [place] [address] Janusz Govea M.B.B.S. [address] [place] [phone] 09/14/2024 2:00 PM CYBER ANALYST Office Visit Division of Hematology in [place], [place] [address] [place] [address] Janusz Govea M.B.BZahraaS. [address] [place] [phone] documented as of this encounter Visit Diagnoses Diagnosis Fluid Overload Unspecified- Primary Hypertension Pulmonary (HCC) documented in this encounter Care Teams Grocery Store Courtesy Clerk Relationship Specialty Start Date End Date Elsewhere, Pcp PCP - General Internal Medicine 01/30/24 documented as of this encounter
--- OUTSIDE RECORDS SUMMARY | 2024-07-21 11:42 | XMS_ITS | Encounter Summary ---
Author Organization [facility] Address [address] [place] [address] Care Team Providers Care Watershed Program Manager Name Role Phone Elsewhere, Pcp Primary Care Provider Unavailabl e Encounter Details Date Type Department Care Team (Late st Contact Info) Description 07/16/2024 Clinical Communication Pharmacy Prior Auth [facility] [phone] Alon Kenney Social History Tobacco Use Types Packs/Day Years Used Date Smoking Tobacco: Former Cigarettes 2012 Passive Smoke Exposure: Never Smokeless Tobacco: Never Comments:still smokes mariju shady Alcohol Use Standard Drinks/Week Comments Yes 0 (1 standard drink = 0.6 oz pur e alcohol) occasional [facility] Utilities Answer Date Recorded In the past 12 months has e electric, gas, oil, or water [employer] threatened to shut off services in your [...] your living situation today? I have a [facility] place to live 07/09/2024 Comments No Sex and Gender Information Value Date Recorded Sex Assigned at Female 07/24/2021 11:03 AM MOUNTED POLICE Legal Sex Female 9:12 PM MOUNTED POLICE Gender Identity Female 07/24/2021 11:03 AM MOUNTED POLICE Sexual Orientation Straight 07/24/2021 11 :03 AM MOUNTED POLICE documented as of this encounter Plan of Treatment Upcoming Encounters Date Type Department Care Team (Late st Contact Info) Description 08/10/2024 8:30 AM MOUNTED POLICE Telemedicine Division of Hematology in [place], [place] [address] [place] [phone] Isidro Zamarripa M.B., B.Ch. [address] [place] [phone] 08/26/2024 8:30 AM MOUNTED POLICE Appointment Department of Laboratory Medicine and Pathology, [facility], in [place], [place] 200 [place] [phone] Matthew Mayes M.D. [address] [place] [phone] 08/26/2024 9:00 AM MOUNTED POLICE Appointment Department of Cardiac Rehabilitation in [place], [place] [address] [place] [address] Matthew Mayes M.D. [address] [place] [phone] 08/26/2024 11:00 AM MOUNTED POLICE Clinical Support Department of Nutrition and Diabetes Education in [place], [place] [address] [place] [address] Matthew Mayes M.D. [address] [place] [phone] Karmen Zambrano RDN, LD [address] [place] [phone] 08/27/2024 10:30 AM MOUNTED POLICE Office Visit Department of Cardiovascular Medicine in [place], [place] [address] [place] [phone] Matthew Mayes M.D. [address] [place] [phone] 09/14/2024 12:00 PM MOUNTED POLICE Appointment Department of Laboratory Medicine and Pathology, [facility] in [place], [place] [address] [place] [address] Janusz Gvoea M.B.B.S. [address] [place] [phone] 09/14/2024 2:00 PM MOUNTED POLICE Office Visit Division of Hematology in [place], [place] [address] [place] [phone] Janusz Govea M.B.B.S. [address] [place] [phone] documented as of this encounter Visit Diagnoses Not on filedocumented in this encounter Care Teams Watershed Program Manager Relationship Specialty Start Date End Date Elsewhere, Pcp PCP - General Internal Medicine 01/30/24 documented as of this encounter
--- OUTSIDE RECORDS SUMMARY | 2024-07-21 11:43 | XMS_ITS | Encounter Summary ---
Author Organization [facility] Address [address] [place] [address] Care Team Providers Care Factory Superintendent Name Role Phone Elsewhere, Pcp Primary Care Provider Unavailabl e Encounter Details Date Type Department Care Team (Latest Contact Info) Description 07/08/2024 4:28 PM WRAPPER CASER - 07/16/2024 1:44 PM WRAPPER CASER Hospital Encounter [facility], [facility], Sixth Floor [address] [place] [address] Ludin Moreno M.D. [address] [place] [address] [phone] Shital Frank M.D., Pharm.D. [address] [place] [address] [phone] Frankie Moreau M.D. [address] [place] [address] [phone] Decline Functional Status [R53.81] (Primary Dx); Hypertension [...] oz pur e alcohol) occasional [facility] Utilities Answer Date Recorded In the past 12 months has e electric, gas, oil, or water company threatened to shut off services in your [...] your living situation today? I have a [facility] place to live 07/09/2024 Comments No Sex and Gender Information Value Date Recorded Sex Assigned at Female 07/24/2021 11:03 AM WRAPPER CASER Legal Sex Female 9:12 PM WRAPPER CASER Gender Identity Female 07/24/2021 11:03 AM WRAPPER CASER Sexual Orientation Straight 07/24/2021 11 :03 AM WRAPPER CASER documented as of this encounter Last Filed Vital Signs Vital Sign Reading Time Taken Comments Blood Pressure 117/61 07/16/2024 10:45 AM WRAPPER CASER Pulse 91 07/16/2024 8:15 AM WRAPPER CASER Temperature 36.9 C (98.4 F) 07/16/2024 10:53 AM WRAPPER CASER Respiratory Rate 16 07/16/2024 10:45 AM WRAPPER CASER Oxygen Saturation 87% 07/16/2024 10:53 AM WRAPPER CASER Inhaled Oxygen Concentration - - Weight 136 kg (299 lb 13.2 oz) 07/16/2024 9:28 A M WRAPPER CASER Height 171 cm (5' 7.32) 07/09/2024 12:52 PM WRAPPER CASER Body Mass Index 46.51 07/09/2024 12:52 PM WRAPPER CASER documented in this encounter Discharge Summaries * Jolene Vargas APRN, C.N.P. - 07/16/2024 10:29 AM CST CARDIOLOGY HOSPITAL DISCHARGE SUMMARY DATE OF ADMISSION: 07/08/2024 DATE OF DISCHARGE: 07/16/2024 Discharge Provider: Frankie Moreau M.D. 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 #7 Chronic bone pain treated with narcotics #8 Substantial sleep disordered breathing, untreated D/T nosebleed with CPAP #9 GERD #10 Anxiety #11 Insomnia #12 Diabetes Mellitus, type 2 with HgA1C 7.4%; diagnosed 07/09/2024 #13 Chronic leukocytosis, secondary to myelofibrosis #14 Subclinical hypothyroidism #15 Morbid Obesity, BMI >45 DISCHARGE DISPOSITION: Home or Self Care [1] RECOMMENDATIONS FOR FOLLOW-UP APPOINTMENTS For Primary Care: -- Follow up with PCP in 7-10 days with CBC, BMP, and magnesium prior to visit -- Monitor volume status and adjust oral diuretic, goal weight is 136 kg/299 lbs For Cardiology Provider: -- Continue to follow with Pulmonary Hypertension team for ongoing management Other follow up recommendations: -- Follow up Hematology for ongoing management of myelofibrosis MEDICATIONS CHANGED DURING HOSPITAL STAY: Medications Stopped: danazol Medications Changed: Torsemide increase to 60 mg bid Medications Started: none PROCEDURES DURING STAY: Right heart catheterization (07/15/2024) FOLLOW-UP APPOINTMENTS Scheduled Appointments 07/16/2024 11:00 AM Karmen Zambrano RDN, LD Nutrition 07/16/2024 12:30 PM CVD SIX MIN WALK DAISY Cardiovascular Disease 07/16/2024 2:00 PM Matthew Mayes M.D. Cardiovascular Disease 08/10/2024 8:30 AM Isidro Zamarripa M.B., B.Ch. Hematology 09/14/2024 12:00 PM LAB BLOOD [facility] C Laboratory Medicine 09/14/2024 2:00 PM Janusz Govea M.B.B.S. Hematology For appointment details refer to your Patient Appointment Guide. HOSPITAL COURSE Admission Weight: (!) 140 kg Dismissal Weight: 136 kg BMI: Body mass index is 46.51 kg/m??. Mrs. Dobbs is 54year old female who was directly admitted on 07/08/2024 for decompensated heart failure in the setting of pulmonary hypertension. She has medical comorbidities that include but are not limited to primary myelofibrosis, s/p multiple ELSI inhibitors, two clinical trials, and splenectomy in 02/2022, transfusion-dependent anemia, pulmonary arterial hypertension likely group 1 vs group5 with myelofibrosis, severe TR, chronic bone pain treated with narcotics, and sleep disordered breathing untreated due to epistaxis with CPAP. Briefly, patient has been seen by Dr. Mayes in the Pulmonary hypertension Clinic since 11/2022. In07/2023 patient was initiated on sildenafil for medical management. Patient was again seen on 01/2024 and 04/2024 and was noted to have increased volume retention. During 04/2024 Dr. Mayes offered admission to assist in expediting fluid removal but patent declined. On day of admission patient contacted Dr. Mayes reporting ongoing weight gain and increased dyspnea. Dr. Mayes recommended admission to Cardiology. On arrival to PCU, patient was grossly volume overloaded so diuresis was pursued with furosemide drip and intermittent boluses of furosemide and chlorothiazide. With more aggressive diuresis, she developed acute kidney injury requiring us to hold diuretics. Renal function improved and torsemide wasresumed at an increased dose. Weight on the day of dismissal was 136 kg. Pulmonary Hypertension team follow during hospitalization. Patient remained on home sildenafil for pulmonary hypertension. No further therapy was added. She proceeded for right heart catheterization on 07/15/2023 which demonstrated normalization of left-sided pressures after diuresis. She continuedto have significant pulmonary hypertension. Cardiac index was noted to be elevated in the setting of anemia. For management of primary myelofibrosis, Hematology was curbsided and recommended continuing current therapy, maintaining hemoglobin >7.5, and no bone marrow biopsy. Patient's anemia in the setting of myelofibrosis was managed with weekly packed RBC transfusions on 07/09/24 and 07/13/24. Hydroxyurea was continued for management leukocytosis and thrombocytosis. Patient refused home danazol and after discussion with Hematology, was ultimately discontinued. On 07/09/24 patient was found to have an elevated hemoglobin A1c of 7.4%. DCS was consulted and placed patient on mild correction scale insulin and checked glucoses 4 times daily which was later discontinued due to normal sugars. Ultimately they felt HgA1C was falsely elevated in the setting of splenectomy and anemia requiring blood transfusion so they ultimately recommended monitoring in the outpatient setting. Patient was noted to have intermittent delirium and slightly elevated temperatures, but remained afebrile. Infectious workup was pursued with respiratory swab which was negative, blood cultures were obtained which revealed no growth. Overnight oximetry testing was obtained prior to discharge and demonstrated oxygen in need of 3 L during sleep, 2 L while awake at rest and 4 L with activity. Oxygen prescriptions were updated. Patient was discharged in stable condition to home on 07/16/24. TEST RESULTS PENDING AT DISCHARGE: Pending Labs Order Current Status Basic Metabolic Panel Collected (07/16/24 1010) CBC without Differential Collected (07/16/24 1011) Magnesium Collected (07/16/24 1010) Bacteria / Ronit Culture, Blood #1 Preliminary result Bacteria / Ronit Culture, Blood #2 Preliminary result CONDITION ON DISCHARGE: Stable. DIET AT DISCHARGE: Congestive heart failure diet consisting of 2584-7284 mg sodium, low cholesterol, low fat. No more than 1.5 to 2 liters (6-8 cups of total fluid) fluid restriction each day. No alcohol, (or discuss with physician). PRIMARY PROVIDER No care count team member to display Primary Care Providers: Elsewhere, Pcp (General) No address on file Primary Care Provider Phone Number: None Primary Care Provider Fax Number: None MARGIN CODE I personally spent total time of 45 minutes with >50% spent with counseling/coordination of care, independent from other providers on our team. PER CASER documented in this encounter Discharge Instructions * Discharge Instructions* Elyssa Mendoza - 07/09/2024 7:04 AM WRAPPER CASER You were discharged from the RST CARD 5 Service. Please identify this service name if you call withquestions after hospitalization. PER CASER * Discharge Instr - Non [place] Follow-Ups* Elyssa Mendoza - 07/16/2024 7:37 AM WRAPPER CASER * Take a copy of your dismissal paperwork with you to your appointments. * [place], [place] July 22, 2024: 9:00 AM - Post hospital follow-up visit with Meli Hernandez MD, primary care provider, at [facility]. RECOMMENDATIONS: * CBC * BMP [facility] [place], [place] You may have outpatient appointments at [facility] that changed during your hospitalization. Referto your [facility] Patient Appointment Guide (PAG) for the most current schedule of appointments and detailed instructions of tests / procedures. Call [phone] if you did not receive a PAG or need to CANCEL any [facility] appointment(s). PER CASER documented in this encounter Medications at Time of Discharge acetaminophen (TYLENOL) 500 mg tablet Take 2 tablets (1,000 mg total) by mouth every 6 (six) hours as needed for pain (Do not exceed 4000mg/day.). 03/18/2022 allopurinoL (Zyloprim) 300 mg tablet TAKE 1 TABLET BY MOUTH DAILY 90 tablet 3 06/15/2024 diphenhydrAMINE-ac etaminophen (TYLENOL PM) 25-500 mg per tablet Take 2 tablets by mouth at bedtime as needed for sleep. DME CPAPIndications:Ob structive Sleep Apnea Adult DME Order 1 each 02/04/2024 DME OxygenIndications: Hypertension Pulmonary (HCC),Failure Heart Right (HCC) DME Order - for details see Order Report 1 each 07/16/2024 DME OxygenIndications: Hypertension Pulmonary (HCC),Failure Heart Right (HCC) DME Order - for details see Order Report 1 each 07/16/2024 hydroxyurea (Hydrea) 500 mg capsule TAKE 1 CAPSULE BY MOUTH TWICE DAILY AT THE SAME TIME EVERY DAY 180 capsule 1 01/27/2024 medical cannabis tablet Take 1 tablet by mouth every 8 (eight) hours as needed (pain). CBD component: 10 mg morphine (MS CONTIN) 15 mg ER tablet TAKE 1 TABLET BY MOUTH EVERY 12 HOURS FOR PAIN 11/15/2022 morphine (MS CONTIN) 30 mg ER tablet Take 30 mg by mouth 2 (two) times a day. 09/15/2022 omeprazole (PriLOSEC) [address] capsule Take 1 capsule (20 mg total) by mouth daily. 90 capsule 3 01/22/2024 oxyCODONE (Oxy IR) 5 mg immediate release capsule Take 5 mg by mouth as needed. 06/28/2024 sennosides (SENOKOT) 8.6 mg tablet Take 2 tablets by mouth at bedtime as needed. 03/07/2016 sildenafil (REVATIO) 20 mg tablet Take 1 tablet (20 mg total) by mouth 3 (three) times a day. 90 tablet 11 07/30/2023 sodium-potassium bicarbonate (VASYL-SELTZER GOLD) 344-1,050-1,000 mg tablet, effervescent Take 1 tablet by mouth daily as needed (upset stomach). UNABLE TO FIND Med Name: Cannabis- patient's reports this is newly prescribed for her and as of 03/11/22, has not yet started. Reports patient will have gummies as well as a tablet, have not picked these up yet. Strength of these is not known because they are new for her. torsemide 60 mg tablet Take 60 mg by mouth 2 (two) times a day before morning and evening meals. 180 tablet 11 07/16/2024 5 documented as of this encounter Progress Notes * Burak Bradford M.B.B.S. - 07/16/2024 1:08 PM CST [place], [place] Pulmonary Hypertension Consult SUBJECTIVE REFERRAL Matthew Mayes M.D. [address] [place] [phone] CHIEF COMPLAINT / REASON FOR CONSULT Pulmonary hypertension BRIEF HISTORY OF PRESENT ILLNESS Ms. Jennifer Dobbs is a 54 y.o. female who is admitted for fluid overload, our team was consulted for management of pulmonary hypertension. She has a past medical history of heart failure with a preserved ejection fraction / high- output cardiac failure (LVEF 64%, 01/2024), severely enlarged right ventricle with severely reduced right ventricular systolic function, severe tricuspid valve regurgitation, obstructive sleep apnea - intolerant to CPAP, pulmonary hypertension (Mixed group 2, 3, 5), diabetes mellitus (A1c 7.4%, 06/2024), medical marijuana use, past smoker (quit 2012), chronic anemiasecondary to myelofibrosis, chronic bone pain - on opioids, morbid obesity, gastroesophageal refluxdisease. 24 HOUR INTERVAL EVENTS Good urine output with oral torsemide, planned for discharge today OBJECTIVE PHYSICAL EXAM Vitals: 07/16/24 1053 BP: Pulse: Resp: Temp: 36.9 ??C SpO2: (!) 87% General: Well appearing. No conversational dyspnea. Eyes: Anicteric sclerae. Vessels: JVP elevated Heart: Regular rate and rhythm. Systolic murmur at apex. Lungs: Clear to auscultation bilaterally Abdomen: Soft, nontender, nondistended. No hepatosplenomegaly. Extremities: Bilateral trace to 1+ lower extremity pitting edema Skin: No appreciable rashes or lesions STUDIES Labs: Recent Results (from the past 24 hours) Basic Metabolic Panel Collection Time: 07/16/24 10:10 AM Result Value Potassium, S 4.6 Sodium, S 142 Chloride, S 97 (L) Bicarbonate, S 34 (H) Anion Gap 11 BUN (Blood Urea Nitrogen), S 70 (H) Creatinine 1.65 (H) Estimated GFR (eGFR) 36 (L) Calcium, Total, S 8.8 Glucose, S 152 (H) Magnesium Collection Time: 07/16/24 10:10 AM Result Value Magnesium, S 2.9 (H) CBC without Differential Collection Time: 07/16/24 10:11 AM Result Value Hemoglobin 7.2 (L) Hematocrit 23.5 (L) Erythrocytes 2.45 (L) MCV 95.9 RBC Distrib Width 21.4 (H) Platelet Count 306 Leukocytes 24.5 (H) Echo: 07/09/2024 1. Normal left ventricular chamber size. 2. [...] following changes have occurred: Cardiac index and theestimate of RV systolic pressure are slightly lower and LV filling pressure may be somewhat higher,but the study is largely unchanged from the previous examination. 6MWD: 01/21/2024 Total Distance Walked (Feet): 1035 Total Distance Walked (Meters): 315.47 CXR: 07/08/2024 Since 03/16/2022, interval development of mild interlobular septal thickening, increased prominence of the pulmonary vasculature, increased enlargement of the cardiac silhouette size consistent with mild pulmonary edema. New right lower lobe airspace opacity and small right pleural effusion may represent a superimposed infectious/inflammatory process. Linear subsegmental left lower lobe atelectasisor scarring. Elevated right hemidiaphragm. Home sleep apnea test 02/04/2024 Moderate to severe obstructive sleep apnea-hypopnea syndrome resulting in significant oxyhemoglobindesaturation, worse in REM Sleep-related hypoxemia versus hypoventilation VQ scan: 08/01/2021 No evidence of acute or chronic pulmonary embolism on planar perfusion imaging. Right heart catheterization: 04/27/2024 Severely elevated RA mean pressure. Elevated RA [...] in context of severe anemia. Systemic hypoxemia. 07/15/2024 (prelim) 1. Significantly elevated right heart filling pressures [...] while increasing PAWP and thus decreasing PVR ASSESSMENT / PLAN Ms. Jennifer Dobbs is a 54 y.o. female who is admitted for fluid overload, our team was consulted for management of pulmonary hypertension. She has a past medical history of heart failure with a preserved ejection fraction / high- output cardiac failure (LVEF 64%, 01/2024), severely enlarged right ventricle with severely reduced right ventricular systolic function, severe tricuspid valve regurgitation, obstructive sleep apnea - intolerant to CPAP, pulmonary hypertension (Mixed group 2, 3, 5), diabetes mellitus (A1c 7.4%, 06/2024), medical marijuana use, past smoker (quit 2012), chronic anemiasecondary to myelofibrosis, chronic bone pain - on opioids, morbid obesity, gastroesophageal refluxdisease. Fluid overload likely secondary to dietary indiscretion, and right heart failure in setting of pulmonary hypertension Pulmonary hypertension (Mixed group 2, 3, 5). NYHA class III Heart failure with a preserved ejection fraction / high-output cardiac failure (LVEF 64%, 01/2024) Severely enlarged right ventricle with severely reduced right ventricular systolic function Severe tricuspid valve regurgitation, likely functional Obstructive sleep apnea - intolerant to CPAP Diabetes mellitus (A1c 7.4%, 06/2024) Chronic non-cardiac: medical marijuana use, past smoker (quit 2012), chronic anemia secondary to myelofibrosis, chronic bone pain - on opioids, morbid obesity, gastroesophageal reflux disease Plan Diuretic: Agree with conversion to torsemide 60 mg oral twice daily. Closely monitor electrolytes and renal function, keep K>4, and Mg >2 while inpatient. Continue with sildenafil 20 mg oral three times daily for now. If she is hypotensive (BP < 90/60), then can consider decreasing dose of sildenafil to 10. Oxygen supplementation only if desaturation noted to SpO2 < 88%. Our service will continue to follow up while inpatient. She would need follow up with pulmonary hypertension clinic on discharge (already has follow up appointment with Dr. Mayes on 08/27/2024) Rest of care per primary team. LISA Jaime Fellow - Advanced Heart Failure & Transplant Cardiology Discussed with Dr. Mayes Cosigned by Matthew Mayes M.D. at 07/16/2024 5:01 PM WRAPPER CASER PER CASER PER CASER * Sonia Amaro R.N. - 07/16/2024 9:02 AM CST SUBJECTIVE Discharge Planning OBJECTIVE Patient in room NT6 850 ASSESSMENT / PLAN ASSESSMENT Security Agent consulted for home O2 set up. Discussed companies available in patients area. She had no preferences so case hardener sent referrals to several companies in patient's home location. Patient is comfortable with homegoing plan with support from her PLAN Home oxygen will be provided by: Durable Medical Equipment - Admitted Since 07/08/2024 Service Provider Services Address Phone Fax Patient Preferred [facility] Durable Medical Equipment [phone] -- Contact: Intake Portable tanks for transport to be delivered to the patient???s room prior to dismissal. Concentrator to be delivered and set up at patient???s home. NURSING: - Fax prescription to oxygen provider. - Fax any necessary clinical documentation supporting oxygen need including After Visit Summary andDME justification. - Arrange initial oxygen delivery to home and portable tank delivery to the hospital. PRIMARY SERVICE: - Review and sign oxygen prescription and supporting documentation including After Visit Summary and DME justification prior to patient???s dismissal. Security Agent : - Will continue to follow. Ivanna Amaro R.N. 07/16/24 PER CASER PER CASER * Monica Floyd R.RAshlie - 07/16/2024 7:58 AM CST 07/16/24 0740 Home Oxygen Assessment Rest/Awake Room Air SpO2 74 Percent Rest/Awake with Oxygen SpO2 90 (2 L oxygen via NC) Exercise/Activity with Oxygen SpO2 91 Percent (4 L oxygen) Pt demonstrates need for oxygen at rest and with activity. 2 L at rest and 4 l with activity via NC PER CASER * Mirella Mulligan R.R.T., L.R.T. - 07/16/2024 7:55 AM CST 07/16/24 0755 Nocturnal Oxygen Assessment Asleep Room Air SpO2 83 Percent Oxygen Flow Rate 3 L/min (via Nasal Cannula) Nocturnal oxygen assessment completed. Patient's SpO2 was at or below 88% for 5 minutes or greater.Any desaturations on trend lower than patient SpO2 is considered artifact. Electronically signed by: Mirella Mulligan R.R.T., L.R.TZahraa 07/16/24 7:55 AM WRAPPER CASER PER CASER * Isis Sy M.S., O.T., BCPR - 07/15/2024 4:14 PM CST 07/15/24 1613 Reason Therapy Missed Reason Therapy Missed Patient declined therapy Patient had recently returned from bathroom and reports fatigue declining activity with OT. Patientlater left room for heart cath. Will continue to follow and progress goals as able and appropriate. Isis Sy M.S., O.T., BCPR PER CASER * Sameer Reed, Pharm.D., R.Ph. - 07/15/2024 10:40 AM CST Pharmacist Progress Note Reason for admission: decompensated high output heart failure in the setting of pulmonary hypertension and severe tricuspid regurgitation PMH: myelofibrosis s/p multiple ELSI inhibitors, transfusion dependent anemia, PH, severe tricuspid regurgitation, chronic sleep-related breathing disorder and nocturnal hypoxia, intolerant of PAP, s/p splenectomy OBJECTIVE Neuro: Chronic bone pain - morphine ER 30 mg BID, oxycodone PRN, and medical cannabis (POM). Trazodone 25 qhs, melatonin 3 qhs, and hydroxyzine prn. CV: PH - sildenafil 20 mg TID. Neph: Estimated Creatinine Clearance: 53.7 mL/min (A) (by C-G formula based on SCr of 1.69 mg/dL (H)). BL 1-1.3 allopurinol Heme: Myelofibrosis - hydroxyurea 500 bid. GI: GERD - pantoprazole 40 qd. PPX: none Medication Reconciliation: Held: torsemide, danazol (pt refusing due to increased anxiety) Changed: TBD New: TBD ASSESSMENT / PLAN Right heart failure, severe TV regurgitation, and pulmonary HTN Diuresis on hold with KAY on CKD. Supplement to keep K>4 mmol/L and Mg>2 mg/dL. Pulm HTN following; continues on sildenafil RH cath today KAY on CKD, meds/labs reviewed Patients is using their own supply of medical cannabis. Ensure that the medical cannabis policy is being followed and patient has their [place] medical cannabis registration. Policy: Medical Cannabis in Patient Care Procedure - [place] The use of cannabis without [place] medical cannabis registration is not supported. Ensure the proper Medical Cannabis form is being used: Controlled Substance Disposition and Inventory Record form [id number]). Chronic bone pain Consider scheduled senna in setting of chronic opioid use Sameer Reed Pharm.D., R.Ph. PER CASER * Stephen Vasquez P.A.-C. - 07/15/2024 7:22 AM CST RST CARD 5 CARDIOLOGY INPATIENT PROGRESS NOTE SUBJECTIVE Ms. Dobbs was seen and examined following [facility]. She reports feeling tired but denies having any chest pain/discomfort or shortness of breath. OBJECTIVE TELEMETRY Sinus rhythm with rates in the 90s. 11-beat run of NSVT overnight INTAKE/OUTPUT Past 24 hours: Intake/Output Summary (Last 24 hours) at 07/15/2024 0722 Last data filed at 07/15/2024 0500 Gross per 24 hour Intake 830 ml Output 2400 ml Net -1570 ml Net Hospitalization: -7.3 L Admission Weight: (!) 140 kg Today's weight: 135 kg Weight change since admit: -5 kg Body mass index is 46.34 kg/m??. VITAL SIGNS Temperature: [37 ??C-37.5 ??C] 37.3 ??C Heart Rate: [86-107] 102 Resp Rate: [11-27] 19 Blood Pressure: (97-111)/(48-68) 97/48 SpO2: [82 %-97 %] 93 % Flow Rate (L/min): [3 L/min] 3 L/min Weight: [135 kg] 135 kg BMI (Calculated): [46.3 kg/m??] 46.3 kg/m?? Pulse Rate: [87-104] 93 PHYSICAL EXAMINATION General: Alert and oriented, resting comfortably in chair. Responding to questions appropriately. Heart: Regular rate and rhythm. Grade 2/6 systolic murmur. JVP does not appear to be elevated Lungs: Faint crackles at the bases bilaterally otherwise clear to auscultation. On 3 L oxygen nasalcannula Abdomen: Soft, obese, nontender to palpation throughout Extremities: Peripheral pulses intact, bilateral lower extremities wrapped in Abdullahi wraps, lower extremity edema present Skin: Warm and dry. Right IJ access site bandaged, no signs of active bleeding or hematoma DIAGNOSTICS I personally reviewed all radiology and labs from the past 24 hrs. Hemoglobin 7.3, hematocrit 23.8, platelets 316, WBC 26.5 Potassium 4.9, sodium 143, chloride 98, bicarb 36, BUN 73, creatinine 1.69, magnesium 3.0 ASSESSMENT / PLAN #1 Acute on chronic high output heart failure with preserved LVEF 64% and severely reduced RV dysfunction (TTE 07/09/2024) with predominantly right-sided symptoms #2 Pulmonary arterial hypertension, query group 1 vs 5 in the setting of 4, on sildenafil #3 Severe tricuspid regurgitation #4 Type 2 CALR, SF3B1 mutated primary myelofibrosis s/p multiple prior therapies including ruxolitinib, fedratinib, pacritinib, and momelotinib, and 2 clinical trials, Alisertib and 9-ING #5 Anemia, 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 Dobbs is 54 year old female who was directly admitted on 07/08/2024 for decompensated heart failure in the setting of pulmonary hypertension. Patient has been diuresed with continuous IV furosemide infusion and intermittent boluses, chlorothiazide has also been utilized. She is net -7 L since admission and her weight is down 5 kg since admission. She developed acute kidney injury yesterday, and IV furosemide infusion was discontinued yesterday. Creatinine improved to 1.69 today (1.96 yesterday). Patient is NPO for right heart catheterization today to establish volume status. On 07/12/2024, patient had delirium and slightly elevated temperatures, but remained afebrile. Infectious workup was pursued with respiratory swab which was negative, blood cultures were obtained andthus far have shown no growth. Patient has remained afebrile and has no other infectious signs/symptoms. PLAN: NPO for right heart catheterization + drug study today Diuresis on hold prior to procedure Pulmonary Hypertension team continues to follow, appreciate recommendations Continue sildenafil 20 mg t.i.d. Closely monitor hemoglobin and transfuse as needed for Hgb <7 Hgb stable at 7.3 today Monitor for infectious signs/symptoms Continue to follow blood cultures, no growth to date Continue other medications including allopurinol, hydroxyurea, melatonin, morphine, pantoprazole, and trazodone Nutrition consult VTE: anti-coagulation held due to planned procedure Gi: Pantoprazole Tubes/lines: PIV Telemetry Indication: Code Status: Full Code Disposition: Home - self care UPDATE: Patient had right heart catheterization today, results remain unavailable at this time. Based on RHC findings discussed with business management consultant, we will give torsemide 80 mg today and plan to transition to torsemide 60 mg b.i.d. starting tomorrow. We will also obtain overnight oximetry testing thisevening prior to potential discharge in the next 24-48 hours. Stephen Vasquez P.A.-C. 07/15/24 RST CARD 5 I personally spent a total 50 minutes providing and coordinating care today. PER CASER PER CASER * Shital Frank M.D., Pharm.D. - 07/14/2024 12:10 PM CST SUBJECTIVE I have seen and examined the patient after returning from the hemodynamic right heart cath. Over the last 24 hours patient is net negative 1.2 over the last 24 hours. Patient was placed on a diureticholiday with acute kidney injury. Clinically Ms. Dobbs remains volume overloaded with profound bilateral lower extremity edema and orthopnea. However, it is not entirely convincing that her 70 lb weight gain is entirely fluid related. Mrs. Dobbs remains afebrile (Tm 37.4??), heart rates are between 92-118 bpm, blood pressure 102-125/51-60 mmHg; SpO2 89 to 96% on 2 to 3 L to by nasal cannula Interval History: 54-year old female with medical history significant for pulmonary hypertension and right heart failure in the setting of severe tricuspid valve regurgitation, high output heart failure secondary to severe transfusion dependent anemia, status post splenomegaly, primary myelofibrosis, nocturnal hypoxemia, chronic pain syndrome, and 5 months history of progressively worsening shortness of breath and 70 lb weight gain in the setting of non adherence to dietary restriction, volume restrictions, and diuretic regimen. The following portions of the patient's history were reviewed and updated as appropriate: allergies, current medications, outpatient medications, family history, medical history, social history, surgical history, and problem list. OBJECTIVE Admission Weight: (!) 140 kg Current Weight: 136 kg Weight: 136 kg, BMI (Calculated): 46.5 kg/m??, Blood Pressure: 104/68, Heart Rate: 88, Pulse Rate: 90, Resp Rate: 15, Temperature: 37.5 ??C, SpO2: 92 % Intake/Output Last 48 Hours: Intake/Output 07/13/24 0700 - 07/14/24 0659 07/14/24 0700 - 07/15/24 0659 Intake (ml) 1755 770 Output (ml) 2120 1250 Net (ml) -365 -480 PHYSICAL EXAM General appearance: alert, appears stated age, no distress, and morbidly obese Neck: Difficult to examine due to body habitus, but patient unable to tolerate laying in bed consistent with elevated biventricular filling pressures. Lungs: diminished breath sounds bilateral lung bases and crackles heard best in posterior lung patton Heart: neither S1: normal nor S2: increased P2 nor systolic murmur: holosystolic 3/6, blowing cardiac base Extremities: edema 3+ bilateral lower extremity edema up to level of the mid thigh, extremities normal, warm and well-perfused Skin: Skin color, texture, turgor normal. No rashes or lesions. Neurologic: Grossly normal DIAGNOSTICS Echocardiogram (July 09, 2024) 1. Normal left ventricular chamber size. 2. [...] following changes have occurred: Cardiac index and theestimate of RV systolic pressure are slightly lower and LV filling pressure may be somewhat higher,but the study is largely unchanged from the previous examination. Hemodynamic right heart catheterization (July 15, 2023) Elevated right-sided filling pressure (mRAP 17) with elevated pulmonary artery pressure (mPAP 37) and high cardiac output state in context of transfusion dependent anemia. Systemic hypoxemia. ASSESSMENT / PLAN #1 WHO mixed etiology (group 2, 3 and 5) pulmonary hypertension #2 Severe tricuspid valve regurgitation (ERO 0.42 cm^2; regurgitant volume 49 cc) #3 Transfusion dependent anemia #4 Acute kidney injury on chronic kidney disease #5 Primary myelofibrosis on JAK2 inhibitor therapy #6 Nocturnal hypoxemia (untreated) #7 Severe RV enlargement and severely reduced systolic function (RV strain -12%) #8 Chronic pain syndrome #9 Gastroesophageal reflux disease #10 Anemia of chronic disease #11 Status post splenomegaly The following plan assessment has been discussed with the patient Will transition patient to an augmented oral dose of maintenance diuretics and observe over next 24hours Continue sildenafil therapy in this time with plans to reduced dose by 50% in the setting symptomatic systemic hypotension to allow for further aggressive diuresis. Patient will need ongoing education as non adherence to fluid and dietary restriction (even while in-patient) is contributory to current decompensation heart failure symptoms. I continue to emphasize the importance PT to help with conditioning and strengthening however the patient appears to continue to decline sessions Plan to complete oxygen assessment tonight in anticipation of dismissal tomorrow after nutrition consult. Follow-up will be arranged for pulmonary hypertension clinic. Shital Frank M.D., Pharm.D. Inpatient Heart failure Service PER CASER PER CASER * Juany Stover, P.T., D.P.T. - 07/13/2024 2:34 PM CST 07/13/24 1434 Reason Therapy Missed Reason Therapy Missed Patient declined therapy Patient declined participation on first attempt as she just woke up and was planning to get dressedwith her 's assistance. Upon later approach, patient declined and requested therapist to give her more time. She reports she had to use the bathroom and get dressed. Therapist offered to assist then to start therapy after that, but patient declined, stating her would assist. Providededucation on the role of PT and encouragement for participation. Therapist unable to return this date. Will follow up as appropriate and able. PER CASER * Burak Bradford M.B.B.S. - 07/13/2024 12:23 PM CST [place], [place] Pulmonary Hypertension Consult SUBJECTIVE REFERRAL Matthew Mayes M.D. [address] [place] [id number] CHIEF COMPLAINT / REASON FOR CONSULT Pulmonary hypertension BRIEF HISTORY OF PRESENT ILLNESS Ms. Jennifer Dobbs is a 54 y.o. female who is admitted for fluid overload, our team was consulted for management of pulmonary hypertension. She has a past medical history of heart failure with a preserved ejection fraction / high- output cardiac failure (LVEF 64%, 01/2024), severely enlarged right ventricle with severely reduced right ventricular systolic function, severe tricuspid valve regurgitation, obstructive sleep apnea - intolerant to CPAP, pulmonary hypertension (Mixed group 2, 3, 5), diabetes mellitus (A1c 7.4%, 06/2024), medical marijuana use, past smoker (quit 2012), chronic anemiasecondary to myelofibrosis, chronic bone pain - on opioids, morbid obesity, gastroesophageal refluxdisease. 24 HOUR INTERVAL EVENTS Continued good urine output to IV diuretics, some concern for dietary indiscretion as per primary team OBJECTIVE PHYSICAL EXAM Vitals: 07/13/24 1200 BP: (!) 101/44 Pulse: 90 Resp: 15 Temp: 37.3 ??C SpO2: 90% General: Well appearing. No conversational dyspnea. Eyes: Anicteric sclerae. Vessels: JVP elevated Heart: Regular rate and rhythm. Systolic murmur at apex. Lungs: Bibasilar crackles noted Abdomen: Soft, nontender, nondistended. No hepatosplenomegaly. Extremities: Bilateral 2+ lower extremity pitting edema Skin: No appreciable rashes or lesions STUDIES Labs: Recent Results (from the past 24 hours) SARS Coronavirus 2, PCR Rapid Symptomatic Collection Time: 07/12/24 12:28 PM Specimen: Nasopharynx; Swab Result Value SARS CoV-2, PCR, Rapid, V Undetected SARS Coronavirus 2, Rapid, Source Swab, Nasopharynx Influenza A, B, RSV, PCR, Rapid Collection Time: 07/12/24 12:28 PM Specimen: Nasopharynx; Swab Result Value Influenza A, PCR, Rapid, V Negative Influenza B, PCR, Rapid, V Negative Resp Synctial Virus, PCR, Rapid Negative Specimen Source Swab, Nasopharynx CBC without Differential Collection Time: 07/12/24 5:10 PM Result Value Hemoglobin 7.1 (L) Hematocrit 22.8 (L) Erythrocytes 2.46 (L) MCV 92.7 RBC Distrib Width 20.6 (H) Platelet Count 318 Leukocytes 28.0 (H) Basic Metabolic Panel Collection Time: 07/12/24 5:11 PM Result Value Potassium, S 4.6 Sodium, S 140 Chloride, S 95 (L) Bicarbonate, S 32 (H) Anion Gap 13 BUN (Blood Urea Nitrogen), S 63 (H) Creatinine 1.68 (H) Estimated GFR (eGFR) 35 (L) Calcium, Total, S 8.4 (L) Glucose, S 151 (H) Type and Screen (with Reflex Antibody ID) Collection Time: 07/13/24 9:44 AM Result Value ABORh A Pos Antibody Screen Negative Type & Screen Expiration 07/16/2024 23:59 Testing Location [place] Basic Metabolic Panel Collection Time: 07/13/24 9:45 AM Result Value Potassium, S 4.7 Sodium, S 138 Chloride, S 94 (L) Bicarbonate, S 34 (H) Anion Gap 10 BUN (Blood Urea Nitrogen), S 74 (H) Creatinine 1.98 (H) Estimated GFR (eGFR) 29 (L) Calcium, Total, S 8.5 (L) Glucose, S 148 (H) CBC without Differential Collection Time: 07/13/24 9:45 AM Result Value Hemoglobin 7.3 (L) Hematocrit 22.7 (L) Erythrocytes 2.48 (L) MCV 91.5 RBC Distrib Width 21.1 (H) Platelet Count 330 Leukocytes 29.2 (H) Magnesium Collection Time: 07/13/24 9:45 AM Result Value Magnesium, S 2.8 (H) Echo: 07/09/2024 1. Normal left ventricular chamber size. 2. [...] following changes have occurred: Cardiac index and theestimate of RV systolic pressure are slightly lower and LV filling pressure may be somewhat higher,but the study is largely unchanged from the previous examination. 6MWD: 01/21/2024 Total Distance Walked (Feet): 1035 Total Distance Walked (Meters): 315.47 CXR: 07/08/2024 Since 03/16/2022, interval development of mild interlobular septal thickening, increased prominence of the pulmonary vasculature, increased enlargement of the cardiac silhouette size consistent with mild pulmonary edema. New right lower lobe airspace opacity and small right pleural effusion may represent a superimposed infectious/inflammatory process. Linear subsegmental left lower lobe atelectasisor scarring. Elevated right hemidiaphragm. Home sleep apnea test 02/04/2024 Moderate to severe obstructive sleep apnea-hypopnea syndrome resulting in significant oxyhemoglobindesaturation, worse in REM Sleep-related hypoxemia versus hypoventilation VQ scan: 08/01/2021 No evidence of acute or chronic pulmonary embolism on planar perfusion imaging. Right heart catheterization: 04/27/2024 Severely elevated RA mean pressure. Elevated RA [...] in context of severe anemia. Systemic hypoxemia. ASSESSMENT / PLAN Ms. Jennifer Dobbs is a 54 y.o. female who is admitted for fluid overload, our team was consulted for management of pulmonary hypertension. She has a past medical history of heart failure with a preserved ejection fraction / high- output cardiac failure (LVEF 64%, 01/2024), severely enlarged right ventricle with severely reduced right ventricular systolic function, severe tricuspid valve regurgitation, obstructive sleep apnea - intolerant to CPAP, pulmonary hypertension (Mixed group 2, 3, 5), diabetes mellitus (A1c 7.4%, 06/2024), medical marijuana use, past smoker (quit 2012), chronic anemiasecondary to myelofibrosis, chronic bone pain - on opioids, morbid obesity, gastroesophageal refluxdisease. Fluid overload likely secondary to dietary indiscretion, and right heart failure in setting of pulmonary hypertension Pulmonary hypertension (Mixed group 2, 3, 5). NYHA class III Heart failure with a preserved ejection fraction / high-output cardiac failure (LVEF 64%, 01/2024) Severely enlarged right ventricle with severely reduced right ventricular systolic function Severe tricuspid valve regurgitation, likely functional Obstructive sleep apnea - intolerant to CPAP Diabetes mellitus (A1c 7.4%, 06/2024) Chronic non-cardiac: medical marijuana use, past smoker (quit 2012), chronic anemia secondary to myelofibrosis, chronic bone pain - on opioids, morbid obesity, gastroesophageal reflux disease Plan Diuretic: Agree with lasix IV 25 mg/hr, target net negative about 3 L per day. Closely monitor electrolytes and renal function, keep K>4, and Mg >2. Continue with sildenafil 20 mg oral three times daily for now. If she is hypotensive (BP < 90/60), then can consider decreasing dose of sildenafil to 10. Oxygen supplementation only if desaturation noted to SpO2 < 88%. Once she is clinically euvolemic, we would consider repeat right heart catheterization and potentially adding PH medications. Discussed the importance of dietary compliance (Low-sodium diet) with her and her at bedside. Our service will continue to follow up. She would need follow up with pulmonary hypertension clinicon discharge (already has follow up appointment with Dr. Mayes on 07/16/2024, depending on timing of this hospitalization, it would need to be rescheduled). Rest of care per primary team. LISA Jaime Fellow - Advanced Heart Failure & Transplant Cardiology Discussed with Dr. Armijo Cosigned by Ariel Armijo M.D. at 07/13/2024 12:45 PM WRAPPER CASER PER CASER PER CASER * Shital Frank M.D., Pharm.D. - 07/13/2024 8:38 AM CST SUBJECTIVE I have seen and examined the patient during morning rounds. Over the last 24 hours patient is net negative volume balance 1.85 L. She also received a unit of PRBC yesterday with a.m. hemoglobin at 7.3 mg/dL. Patient appears quite drowsy during my exam. is also present at bedside and notes that this is normal even at home. Patient does not require oxygen at baseline and SpO2 over the last 24 hours are between 89 and 96% on supplemental oxygen between 2-3 L. Mrs. Dobbs remains afebrile (Tm 37.4??), heart rates are between 92-118 bpm, blood pressure 102-125/51-60 mmHg; SpO2 89 to 96% on 2 to 3 L to by nasal cannula Telemetry: Patient remains in sinus rhythm with no significant alarm events (5 beat run of NSVT) Interval History: 54-year old female with medical history significant for pulmonary hypertension and right heart failure in the setting of severe tricuspid valve regurgitation, high output heart failure secondary to severe transfusion dependent anemia, status post splenomegaly, primary myelofibrosis, nocturnal hypoxemia, chronic pain syndrome, and 5 months history of progressively worsening shortness of breath and 70 lb weight gain in the setting of non adherence to dietary restriction, volume restrictions, and diuretic regimen. The following portions of the patient's history were reviewed and updated as appropriate: allergies, current medications, outpatient medications, family history, medical history, social history, surgical history, and problem list. OBJECTIVE Admission Weight: (!) 140 kg Current Weight: (!) 137 kg Weight: (!) 137 kg, BMI (Calculated): 46.7 kg/m??, Blood Pressure: (!) 101/46, Heart Rate: (!) 112,Pulse Rate: 91, Resp Rate: 17, Temperature: 37.4 ??C, SpO2: (!) 89 % Intake/Output Last 48 Hours: Intake/Output 07/12/24 0700 - 07/13/24 0659 07/13/24 0700 - 07/14/24 0659 Intake (ml) 1192.2 60 Output (ml) 2875 400 Net (ml) -1682.9 -340 PHYSICAL EXAM General appearance: alert, appears stated age, no distress, and morbidly obese Neck: Difficult to examine due to body habitus, but patient unable to tolerate laying in bed consistent with elevated biventricular filling pressures. Lungs: diminished breath sounds bilateral lung bases and crackles heard best in posterior lung patton Heart: neither S1: normal nor S2: increased P2 nor systolic murmur: holosystolic 3/6, blowing cardiac base Extremities: edema 3+ bilateral lower extremity edema up to level of the mid thigh, extremities normal, warm and well-perfused Skin: Skin color, texture, turgor normal. No rashes or lesions. Neurologic: Grossly normal DIAGNOSTICS ASSESSMENT / PLAN #1 WHO mixed etiology (group 2, 3 and 5) pulmonary hypertension #2 Severe tricuspid valve regurgitation (ERO 0.42 cm^2; regurgitant volume 49 cc) #3 Transfusion dependent anemia #4 Acute kidney injury on chronic kidney disease #5 Primary myelofibrosis on JAK2 inhibitor therapy #6 Nocturnal hypoxemia (untreated) #7 Severe RV enlargement and severely reduced systolic function (RV strain -12%) #8 Chronic pain syndrome #9 Gastroesophageal reflux disease #10 Anemia of chronic disease #11 Status post splenomegaly The following plan assessment has been discussed with the patient 1. Plan to hold intravenous diuresis for the rest of today and reassess renal function tomorrow morning. We continue to encourage patient to consider leg wraps and elevation 2. Hemodynamic right heart catheterization on as patient clinically remains volume overloaded with plateau in response to Continuous infusion furosemide plus thiazide diuretics. 3. Continue sildenafil therapy in this time with plans to reduced dose by 50% in the setting symptomatic systemic hypotension to allow for further aggressive diuresis. 4. Patient will need ongoing education as non adherence to fluid and dietary restriction (even while in-patient) is contributory to current decompensation heart failure symptoms. Shital Frank M.D., Pharm.D. Inpatient Heart failure Service PER CASER * Claudia Andrews APRN, C.N.P., D.N.P. - 07/13/2024 8:04 AM CST Cards 5 CARDIOLOGY INPATIENT PROGRESS NOTE SUBJECTIVE Ms. Dobbs was seen and examined on morning rounds. She is very sleepy this morning, but arousable and answering questions appropriately. She started to wake up more as the visit went on. TELEMETRY SR 80s INTAKE/OUTPUT Past 24 hours: Intake/Output Summary (Last 24 hours) at 07/13/2024 0804 Last data filed at 07/13/2024 0700 Gross per 24 hour Intake 1012.15 ml Output 2875 ml Net -1862.85 ml Net Hospitalization: -10.6 L Admission Weight: (!) 140 kg Today's weight: 134 kg Weight change since admit: - 6 kg Body mass index is 46.71 kg/m??. VITAL SIGNS Temperature: [36.9 ??C-37.6 ??C] 37.4 ??C Heart Rate: [84-118] 112 Resp Rate: [12-31] 17 Blood Pressure: (90-112)/(41-67) 101/46 SpO2: [70 %-96 %] 89 % Flow Rate (L/min): [2 L/min-3 L/min] 3 L/min Pulse Rate: [84-106] 91 PHYSICAL EXAMINATION General: No apparent distress sitting in bedside chair. Mental: Lethargic, but arousable. Alert and oriented. Psych: Pleasant and cooperative. Neck: JVP remains elevated to the mid neck while at 90 degrees. Heart: Regular. 2/6 systolic present. Lungs: Normal respiratory effort on room air. Clear to auscultation bilaterally. Abdomen: Obese, round, symmetrical. Positive bowel sounds. Soft, non-tender. Vessels: 4/4 bilateral radial and dorsalis pedis pulses. Extremities: 3+ edema bilateral lower extremities. DIAGNOSTICS I personally reviewed all radiology and labs from the past 24 hrs. Labs 07/13/2024: Hemoglobin 7.3, hematocrit 22.7, platelets 330, leukocytes 29.2 in the setting of chronic leukocytosis, sodium 138, potassium 4.7, chloride 94, bicarbonate 34, BUN 74, creatinine 1.98, glucose 148, calcium 8.5, and magnesium 2.8. 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 Dobbs is a 54 y.o. female with multiple comorbidities including known high- output HFpEF with LVEF 64%, pulmonary arterial hypertension on sildenafil, and primary myelofibrosis. She was directly admitted 07/08/[address] Mayes for decompensated heart failure and 70 lb weight gain. On arrival to PCU, she was vitally stable and grossly volume overloaded. Limited TTE demonstrated normal LV size with LVEF 64%, cardiac index of 2.99, severely enlarged RV size with severely reduced systolic function with average systolic strain of -12%, estimated RVSP of 70 mmHg, severe TR, and enlarged IVC with reduced inspiratory collapse. She was initiated on a furosemide infusion with intermittent boluses of furosemide and chlorothiazide. She is currently on a furosemide infusion at 25 mg/hr and she was given a chlorothiazide 500 mg IV bolus yesterday to augment diuresis. Today her weight is down 3 kg from yesterday and 6 kg from admission, but she is still grossly hypervolemic on exam. Unfortunately, this caused an increase in creatinine today to 1.98, up from 1.68 yesterday. Of note, on admission patient's goal dry weight was reportedly 109 kg which she has not been per chart since 06/2023. After 5 days of moderately aggressive diuresis patient currently weighs 134 kg. At this time lack of weight loss is felt to be multifactorial in the setting of patient being noncompliant to food/water restrictions and weight gain being food weight rather than fluid. Will continue to monitor but likely will establish a different dry weight for patient during hospitalization. Currently she is on sildenafil for pulmonary arterial hypertension. Etiology for pulmonary hypertension is felt to be group 1 vs group 5 in the setting of primary myelofibrosis. Pulmonary hypertension team has been following during hospitalization. She also has primary myelofibrosis s/p multiple ELSI inhibitors, splenectomy in 02/2022, and two clinical trials. Due to myelofibrosis, she has also required weekly transfusions for anemia and takes hydroxyurea for management of leukocytosis and thrombocytosis. Hematology was curbsided during early admission and recommended continuing on current therapy with goal to maintain hemoglobin >7.5. Her most recent transfusion was yesterday 07/12/2024 for a hemoglobin of 6.9. Today, her hemoglobin has increased to 7.3. On 07/12/2024, Mrs. Dobbs had an episode of delirium. At the time, she was able to be redirected with verbal conversation. Today she continues to report severe exhaustion. Due to reported lack of sleep, trazodone 50 mg was given last night plus melatonin. During delirium episode patient's temperature was noted to be near febrile at 37.5. Give possible fever and delirium, will also pursue infectious workup with viral swab and peripheral blood cultures. Of note, patient has leukocytosis at baseline so unable to utilize this as a point of reference. Plan: HFpEF with LVEF 64% and severely reduced functioning RV with predominantly right-sided symptoms Discontinue furosemide infusion with increase in creatinine Likely establish a new dry weight Previous dry weight of 109 kg may not be attainable due to food weight gain and lack of diet compliance; may need repeat RHC to establish volume status Continue sildenafil 20 mg TID Pulmonary hypertension team following Myelofibrosis with anemia Most recent transfusion 07/12/2024 with improvement in his hemoglobin to 7.3 today Goal per hematology is to maintain Hgb > 7.5 Continue hydroxyurea 500 mg BID Home danazol was discontinued due to reported anxiety attacks per patient, hematology ok'd this Delirium episode 07/12 Infectious workup: viral swab, peripheral blood cultures Leukocytosis not reliable in the setting of myelofibrosis For lack of sleep: reduce Trazodone to 25 mg nightly given lethargy this am; melatonin 3 mg nightly Chronic pain management: Morphine ER 30 mg BID, medical cannabis 2 tablets PRN Continue other medications: Allopurinol 300 mg daily, pantoprazole 40 mg daily Encourage ambulation and ongoing PT VTE: Heparin SQ 5,000 units TID Gi: Pantoprazole Tubes/lines: PIV Telemetry Indication: Heart failure Code Status: Full Code Disposition: Home - self care Claudia Andrews APRN, C.N.P., D.N.P. 07/13/24 RST CARD 5 PER CASER * Sulema Massey, O.T.A. - 07/12/2024 3:03 PM CST 07/12/24 1503 Reason Therapy Missed Reason Therapy Missed Medical hold Hemoglobin is below therapeutic threshold 6.9 OT will follow up as able and appropriate to progressplan of care. PER CASER * Gabriela Colón RDN, LD, M.P.H. - 07/12/2024 12:43 PM CST Images from the original note were not included. Clinical Nutrition: Follow-up Clinical Nutrition continues to follow patient for nutrition care Completed visit with patient today as part of face to face care. SUBJECTIVE Ms. Dobbs is a 54 y.o. 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 Nutrition Prior to Admission: Unable to acquire. MST score of 99 for unable to assess. Weight gain noted over the past 8 months per chart review, though noted patient is admitted for fluid removal. Per H&P, she reported that her dry weight is 248# / 112.5 kg. Current Nutrition: Brief visit with patient this afternoon as she wanted to take a nap. Meal intakes between 50-100% of meals, per review of meal ordering system, patient is not ordering meals with adequate calories. Desktop Publisher asked if she reviewed the sodium education piece that was previously provided, she said she hasn't looked yet. Percentage of Meals Eaten for the past 72 hrs: Percent Meals Eaten (%) 07/11/24 1717 50 07/11/24 1047 100 07/10/24 1800 100 07/10/24 1219 50 07/10/24 0800 100 Food Allergies/Intolerances: None per chart review OBJECTIVE Current nutrition orders: Dietary Orders (From admission, onward) Start Ordered 07/08/24 1629 Adult Diet Regular; 2,000 mg Na; 2000 mL Fluid (Adult Diet) Diet effective now Question Answer Comment Diet texture: Regular Sodium: 2,000 mg Na Fluid total / 24hr: 2000 mL Fluid 07/08/24 1629 Pertinent Labs: Last 3 results Lab Units 07/12/24 0452 07/11/24 0910 07/10/24 1527 07/10/24 0545 SODIUM mmol/L 138 140 142 143 POTASSIUM mmol/L 5.0 5.1 5.0 5.0 CHLORIDE mmol/L 94* 97* 98 99 BUN mg/dL 60* 51* 43* 43* CREATININE mg/dL 1.63* 1.55* 1.33* 1.34* CALCIUM mg/dL 8.6 8.5* 8.7 8.7 MAGNESIUM mg/dL 2.6* 2.6* -- 2.5* Recent Labs Lab Units 07/09/24 0600 HEMOGLOBIN A1C % 7.4* GI Function:Last BM Date: 07/12/24, [place] Stool Chart: Type 5: Soft blobs with clear-cut edges, Edema: +2 to lower extremities 07/12 Integumentary/Wounds: Cm score - 19 Lines/Drains/Airways Wound Duration Wound Incision Abdomen Right;Upper -- days Scope Sites Abdomen 852 days Medications: Scheduled Meds:allopurinoL, 300 mg, oral, Daily [Held by provider] danazoL, 200 mg, oral, BID heparin (porcine), 7,500 Units, subcutaneous, Q8H CODY hydroxyurea, 500 mg, oral, BID melatonin, 3 mg, oral, Daily at bedtime morphine, 30 mg, oral, BID pantoprazole, 40 mg, oral, Daily before morning meal sildenafil, 20 mg, oral, TID sodium chloride, 3 mL, intravenous, Q12H CODY traZODone, 50 mg, oral, Daily at bedtime Continuous Infusions:furosemide 5 mg/mL in NaCl 0.9% 100 mL infusion (Lasix), 25 mg/hr, Last Rate: 25 mg/hr (07/12/24 1207) PRN Meds:. acetaminophen bisacodyL bisacodyL calcium carbonate hydrOXYzine medical cannabis oxyCODONE polyethylene glycol sennosides sodium chloride sodium chloride Anthropometrics: Height: 171 cm Admission Weight: (!) 140 kg (07/08/2024) Current Weight: (!) 137 kg (07/12/24) BMI (Calculated): 46.7 kg/m?? Weight change since admission: -3 kg Net IO Since Admission: -7,893.23 mL [07/12/24 1243] Weight history: 11/04/23-111 kg 03/09/24-114 kg 07/09/24-138 kg ASSESSMENT / PLAN Nutrition Diagnosis: Undesirable food choices related to knowledge deficit as evidenced by patient report that she does not know how much sodium is appropriate in her diet . Ongoing Malnutrition Assessment: Unable to assess Estimated Needs: Total Calorie Needs: 9227-4360 calories/day Method to Estimate Energy Needs: [place]-St Jeor (Basal to Basal + 20%) Weight Used for Equation Calculations: 113 kg (Patient's reported dry weight per H&P) Total Protein Needs: 93 grams/day (Method to Estimate Protein Needs (g/kg): 1.5 gm/kg) Weight Used to Calculate Protein Needs (Kg): 62.3 kg (IBW) Nutrition Intervention: Interventions: Other (Left Guidelines for controlling sodium booklet at patient's room) Monitoring/Evaluation: Nutrition parameter to monitor: Meals/Supplement Intake, Weight Status, Pertinent Labs, and Ascites/Edema Desired Outcome: Consume adequate nutrition orally Verbalize understanding of current diet recommendations Recommendations: Consider adding multivitamin with minerals Clinical Nutrition will continue to follow. For questions about patient's nutritional care please contact pager [phone] on weekdays 07:30-16:00 or [phone] on weekends/holidays ([facility]). PER CASER * Burak Bradford M.B.B.S. - 07/12/2024 12:37 PM CST [place], [place] Pulmonary Hypertension Consult SUBJECTIVE REFERRAL Matthew Mayes M.D. [address] [place] [address] CHIEF COMPLAINT / REASON FOR CONSULT Pulmonary hypertension BRIEF HISTORY OF PRESENT ILLNESS Ms. Jennifer Dobbs is a 54 y.o. female who is admitted for fluid overload, our team was consulted for management of pulmonary hypertension. She has a past medical history of heart failure with a preserved ejection fraction / high- output cardiac failure (LVEF 64%, 01/2024), severely enlarged right ventricle with severely reduced right ventricular systolic function, severe tricuspid valve regurgitation, obstructive sleep apnea - intolerant to CPAP, pulmonary hypertension (Mixed group 2, 3, 5), diabetes mellitus (A1c 7.4%, 06/2024), medical marijuana use, past smoker (quit 2012), chronic anemiasecondary to myelofibrosis, chronic bone pain - on opioids, morbid obesity, gastroesophageal refluxdisease. 24 HOUR INTERVAL EVENTS Good urine output to IV diuretics Creatinine slightly increased to 1.6 (baseline 1.3) OBJECTIVE PHYSICAL EXAM Vitals: 07/12/24 0845 BP: Pulse: Resp: 21 Temp: SpO2: General: Well appearing. No conversational dyspnea. Eyes: Anicteric sclerae. Vessels: JVP elevated Heart: Regular rate and rhythm. Systolic murmur at apex. Lungs: Bibasilar crackles noted Abdomen: Soft, nontender, nondistended. No hepatosplenomegaly. Extremities: Bilateral 2+ lower extremity pitting edema Skin: No appreciable rashes or lesions STUDIES Labs: Recent Results (from the past 24 hours) Glucose, POCT Collection Time: 07/11/24 4:37 PM Result Value Glucose, POCT, B 147 (H) Site Capillary Last Intake 3-4 hours Glucose, POCT Collection Time: 07/11/24 9:17 PM Result Value Glucose, POCT, B 117 Site Capillary Last Intake 3-4 hours Basic Metabolic Panel Collection Time: 07/12/24 4:52 AM Result Value Potassium, S 5.0 Sodium, S 138 Chloride, S 94 (L) Bicarbonate, S 29 Anion Gap 15 BUN (Blood Urea Nitrogen), S 60 (H) Creatinine 1.63 (H) Estimated GFR (eGFR) 37 (L) Calcium, Total, S 8.6 Glucose, S 133 CBC without Differential Collection Time: 07/12/24 4:52 AM Result Value Hemoglobin 6.9 (L) Hematocrit 22.1 (L) Erythrocytes 2.38 (L) MCV 92.9 RBC Distrib Width 21.6 (H) Platelet Count 355 Leukocytes 31.6 (H) Magnesium Collection Time: 07/12/24 4:52 AM Result Value Magnesium, S 2.6 (H) Lactate Collection Time: 07/12/24 5:02 AM Result Value Lactate, P 1.5 Glucose, POCT Collection Time: 07/12/24 6:30 AM Result Value Glucose, POCT, B 133 Site Capillary Last Intake 3-4 hours Glucose, POCT Collection Time: 07/12/24 12:07 PM Result Value Glucose, POCT, B 142 (H) Site Capillary Last Intake 3-4 hours Echo: 07/09/2024 1. Normal left ventricular chamber size. 2. [...] following changes have occurred: Cardiac index and theestimate of RV systolic pressure are slightly lower and LV filling pressure may be somewhat higher,but the study is largely unchanged from the previous examination. 6MWD: 01/21/2024 Total Distance Walked (Feet): 1035 Total Distance Walked (Meters): 315.47 CXR: 07/08/2024 Since 03/16/2022, interval development of mild interlobular septal thickening, increased prominence of the pulmonary vasculature, increased enlargement of the cardiac silhouette size consistent with mild pulmonary edema. New right lower lobe airspace opacity and small right pleural effusion may represent a superimposed infectious/inflammatory process. Linear subsegmental left lower lobe atelectasisor scarring. Elevated right hemidiaphragm. Home sleep apnea test 02/04/2024 Moderate to severe obstructive sleep apnea-hypopnea syndrome resulting in significant oxyhemoglobindesaturation, worse in REM Sleep-related hypoxemia versus hypoventilation VQ scan: 08/01/2021 No evidence of acute or chronic pulmonary embolism on planar perfusion imaging. Right heart catheterization: 04/27/2024 Severely elevated RA mean pressure. Elevated RA [...] in context of severe anemia. Systemic hypoxemia. ASSESSMENT / PLAN Ms. Jennifer Dobbs is a 54 y.o. female who is admitted for fluid overload, our team was consulted for management of pulmonary hypertension. She has a past medical history of heart failure with a preserved ejection fraction / high- output cardiac failure (LVEF 64%, 01/2024), severely enlarged right ventricle with severely reduced right ventricular systolic function, severe tricuspid valve regurgitation, obstructive sleep apnea - intolerant to CPAP, pulmonary hypertension (Mixed group 2, 3, 5), diabetes mellitus (A1c 7.4%, 06/2024), medical marijuana use, past smoker (quit 2012), chronic anemiasecondary to myelofibrosis, chronic bone pain - on opioids, morbid obesity, gastroesophageal refluxdisease. Fluid overload likely secondary to dietary indiscretion, and right heart failure in setting of pulmonary hypertension Pulmonary hypertension (Mixed group 2, 3, 5). NYHA class III Heart failure with a preserved ejection fraction / high-output cardiac failure (LVEF 64%, 01/2024) Severely enlarged right ventricle with severely reduced right ventricular systolic function Severe tricuspid valve regurgitation, likely functional Obstructive sleep apnea - intolerant to CPAP Diabetes mellitus (A1c 7.4%, 06/2024) Chronic non-cardiac: medical marijuana use, past smoker (quit 2012), chronic anemia secondary to myelofibrosis, chronic bone pain - on opioids, morbid obesity, gastroesophageal reflux disease Plan Diuretic: Agree with lasix IV 25 mg/hr, with additional Chlorthiazide, target net negative about 3 L per day. Closely monitor electrolytes and renal function, keep K>4, and Mg >2. Continue with sildenafil 20 mg oral three times daily for now. If she is hypotensive (BP < 90/60), then can consider decreasing dose of sildenafil to 10. Oxygen supplementation if desaturation noted Once she is clinically euvolemic, we would consider repeat right heart catheterization and potentially adding PH medications. Discussed the importance of dietary compliance (Low-sodium diet). Our service will continue to follow up. She would need follow up with pulmonary hypertension clinicon discharge (already has follow up appointment with Dr. Mayes on 07/16/2024, depending on timing of this hospitalization, it would need to be moved). Rest of care per primary team. LISA Jaime Fellow - Advanced Heart Failure & Transplant Cardiology To be discussed with Dr. Armijo Cosigned by Ariel Armijo M.D. at 07/12/2024 1:03 PM WRAPPER CASER PER CASER PER CASER PER CASER * Shital Frank M.D., Pharm.D. - 07/12/2024 8:27 AM CST SUBJECTIVE I have seen and examined the patient during morning rounds. Over the last 24 hours patient is net negative volume balance 1.5 L. Patient was noted by nursing staff to be delirious overnight resultingin inadvertently removing IV from left arm. Patient cannot fully recollect events, but notes she has had tenderness in the arm for a couple of days from an infiltrated IV site. Mrs. Dobbs remains afebrile (Tm 37.9??), heart rates are between 92-118 bpm, blood pressure 102-125/51-60 mmHg; SpO2 86 to 97% on 2 to 4 L to by nasal cannula Telemetry: Patient remains in sinus rhythm with no significant alarm events Interval History: 54-year old female with medical history significant for pulmonary hypertension and right heart failure in the setting of severe tricuspid valve regurgitation, high output heart failure secondary to severe transfusion dependent anemia, status post splenomegaly, primary myelofibrosis, nocturnal hypoxemia, chronic pain syndrome, and 5 months history of progressively worsening shortness of breath and 70 lb weight gain in the setting of non adherence to dietary restriction, volume restrictions, and diuretic regimen. The following portions of the patient's history were reviewed and updated as appropriate: allergies, current medications, outpatient medications, family history, medical history, social history, surgical history, and problem list. OBJECTIVE Admission Weight: (!) 140 kg Current Weight: (!) 137 kg Weight: (!) 137 kg, BMI (Calculated): 46.7 kg/m??, Blood Pressure: 103/58, Heart Rate: 103, Pulse Rate: 96, Resp Rate: 17, Temperature: 37.9 ??C, SpO2: 96 % Intake/Output Last 48 Hours: Intake/Output 07/11/24 0700 - 07/12/24 0659 Intake (ml) 2338.4 Output (ml) 3750 Net (ml) -1411.6 PHYSICAL EXAM General appearance: alert, appears stated age, no distress, and morbidly obese Neck: Difficult to examine due to body habitus, but patient unable to tolerate laying in bed consistent with elevated biventricular filling pressures. Lungs: diminished breath sounds bilateral lung bases and crackles heard best in posterior lung patton Heart: neither S1: normal nor S2: increased P2 nor systolic murmur: holosystolic 3/6, blowing cardiac base Extremities: edema 3+ bilateral lower extremity edema up to level of the mid thigh, extremities normal, warm and well-perfused Skin: Skin color, texture, turgor normal. No rashes or lesions. Neurologic: Grossly normal DIAGNOSTICS ASSESSMENT / PLAN #1 WHO mixed etiology (group 2, 3 and 5) pulmonary hypertension #2 Severe tricuspid valve regurgitation (ERO 0.42 cm^2; regurgitant volume 49 cc) #3 Transfusion dependent anemia #4 Primary myelofibrosis on JAK2 inhibitor therapy #5 Status post splenomegaly #6 Nocturnal hypoxemia (untreated) #7 Severe RV enlargement and severely reduced systolic function (RV strain -12%) #8 Chronic pain syndrome #9 Gastroesophageal reflux disease #10 Anemia of chronic disease The following plan assessment has been discussed with the patient 1. Continue intravenous diuresis with furosemide continuous infusion with plans to redose chlorothiazide 500 mg once diuretic today with ongoing close surveillance and repletion of electrolytes.. Encouraged patient to consider leg wraps and elevation 2. Plan to transfuse 1 unit PRBC today 3. Continue sildenafil therapy in this time with plans to reduced dose by 50% in the setting symptomatic systemic hypotension to allow for further aggressive diuresis. 4. Patient will need ongoing education as non adherence to fluid and dietary restriction (even while in-patient) is contributory to current decompensation heart failure symptoms. Shital Frank M.D., Pharm.D. Inpatient Heart failure Service PER CASER PER CASER * Janeth Rojas P.A.-C. - 07/12/2024 7:16 AM CST RST CARD 5 CARDIOLOGY INPATIENT PROGRESS NOTE SUBJECTIVE Ms. Dobbs was seen and examined on morning rounds. Patient is very sleeping in the chair and not willing to communicate much. Denies any acute complaints. Does report remembering pulling out her IV last night. OBJECTIVE TELEMETRY Sinus tachycardia, rates = 96-123 bpm - atrial tachycardia x 13 beats @ 02:34 INTAKE/OUTPUT Past 24 hours: Intake/outputs inaccurate due to lack of compliance from patient Admission Weight: (!) 140 kg Today's weight: (!) 137 kg Weight change since admit: -3.0 kg Body mass index is 46.71 kg/m??. VITAL SIGNS Temperature: [37.2 ??C-37.9 ??C] 37.9 ??C Heart Rate: [85-114] 100 Resp Rate: [13-38] 17 Blood Pressure: (102-120)/(43-70) 103/58 SpO2: [78 %-97 %] 96 % Flow Rate (L/min): [2 L/min-4 L/min] 3 L/min Weight: [137 kg] 137 kg BMI (Calculated): [46.7 kg/m??] 46.7 kg/m?? Pulse Rate: [64-114] 96 PHYSICAL EXAMINATION General: Sleeping comfortably in the chair, response to questions with brief one-word responses Heart: Regular rhythm, rapid rates, 2/6 systolic murmur appreciated at LUSB, JVD: Appreciated to level of jaw Lungs: Nasal cannula not in nose, mildly increased respiratory effort which improves after placing NC back into nose, no cough appreciated, breath sounds appreciated bilaterally, mild crackles appreciated bilaterally Abdomen: Soft, mildly distended, nontender to light palpation, bowel sounds appreciated throughout Extremities: Warm, 2+ pitting edema appreciated bilaterally DIAGNOSTICS I personally reviewed all radiology and labs from the past 24 hrs. Labs on 07/12/24: Hemoglobin: 6.9, hematocrit: 22.1, platelet count: 355, leukocytes:31.6 Sodium: 138, potassium: 5.0, chloride: 94, bicarbonate: 29, anion gap: 15, BUN: 60, creatinine: 1.63, EGFR: 37, total calcium: 8.6, glucose: 133, magnesium: 2.6 lactate: 1.5 EKG on 07/12/24 @06:37 Sinus tachycardia, ventricular rate = 105 bpm QTc: 489 ASSESSMENT / PLAN #1 Acute on chronic high output heart failure with preserved LVEF 64% and severely reduced RV dysfunction (TTE 07/09/2024) #2 Pulmonary arterial hypertension, query group 1 vs 5 in the setting of #4, on sildenafil #3 Severe tricuspid regurgitation #4 Type 2 CALR, SF3B1 mutated primary myelofibrosis S/P multiple prior therapies including ruxolitinib, fedratinib, pacritinib, and momelotinib, and 2 clinical trials, Alisertib and 9-ING. #5 Anemia, transfusion dependent #6 s/p splenectomy February 2022 #7 Chronic bone pain treated with narcotics #8 Substantial sleep disordered breathing, untreated D/T nosebleed with CPAP #9 GERD #10 Anxiety #11 Insomnia #12 New type 2 diabetes mellitus HgA1C 7.4% on 07/09/2024 #12 Leukocytosis, secondary to myelofibrosis #12 Subclinical hypothyroidism #13 Obesity, BMI > 30.0 MsZahraa Dobbs is a 54 y.o. female with history of high-output HFpEF, pulmonary arterial hypertension on sildenafil, and primary myelofibrosis. She was directly admitted 07/08/24 by recommendation of for decompensated heart failure and 70 lb weight gain. On arrival to PCU, patient was vitally stable and grossly volume overloaded. Limited TTE demonstrated normal LV size with LVEF 64%, cardiac index of 2.99, severely enlarged RV size with severely reduced systolic function with average systolic strain of -12%, estimated RVSP of 70 mmHg, severe TR, and enlarged IVC with reduced inspiratory collapse. For volume overload, patient was initiated on furosemide drip and intermittent boluses of furosemide and chlorothiazide. Today patient is down 3 kg from admission weight but still appears hypervolemic on exam. Will increase furosemide drip to 25 mg/hr and give 500 mg bolus of chlorothiazide. Of note, on admission patient's goal dry weight was reportedly 109 kg which she has not been per chart since 06/2023. After 4 days of moderately aggressive diuresis patient currently weighs 137 kg. At this time lack of weight loss is felt to be multifactorial in the setting of patient being noncompliant to food/water restrictions and weight gain being food weight rather than fluid. Will continue to monitor but likely will establish a different dry weight for patient during hospitalization. Currently patient is on sildenafil for pulmonary arterial hypertension. Etiology for pulmonary hypertension is felt to be group 1 vs group 5 in the setting of primary myelofibrosis. Pulmonary hypertension team has been following during hospitalization. Patient has primary myelofibrosis s/p multiple ELSI inhibitors, splenectomy in 02/2022, and two clinical trials. Due to myelofibrosis patient has also required weekly transfusions for anemia and takeshydroxyurea for management of leukocytosis and thrombocytosis. Hematology was curbsided during early admission and recommended continuing on current therapy with goal to maintain hemoglobin >7.5. Given anemia with hemoglobin of 6.9 today will plan to give another unit of PRBC today. Due severe RV overload present on past TTE, will plan to transfuse at half speed and give diuretic bolus before and after transfusion to avoid further overload. Overnight, patient had an episode of delirium that she was able to be redirected with verbal conversation. Today patient reports severe exhaustion. Due to reported lack of sleep by patient, will add trazodone and melatonin tonight and continue sleep enhancement. During delirium episode patient's temperature was noted to be near febrile at 37.5. Give possible fever and delirium, will also pursue infectious workup with viral swab and peripheral blood cultures. Of note, patient has leukocytosis atbaseline so unable to utilize this as a point of reference. Plan: HFpEF with severely reduced functioning RV Increase furosemide drip to 25 mg/hr and give chlorothiazide 500 mg bolus Likely establish a new dry weight Previous dry weight of 109 kg may not be attainable due to food weight gain and lack of diet compliance by patient Continue sildenafil 20 mg TID Pulmonary hypertension team following Myelofibrosis with anemia Transfuse another unit of packed RBCs today Goal per hematology is to maintain Hgb > 7.5 Continue hydroxyurea 500 mg BID Home danazol was discontinued due to reported anxiety attacks per patient, hematology ok'd this Delirium episode overnight Infectious workup: viral swab, peripheral blood cultures Leukocytosis not reliable in the setting of myelofibrosis For lack of sleep: Trazodone 25 mg nightly, melatonin 3 mg nightly Chronic pain management: Morphine ER 30 mg BID, medical cannabis 2 tablets PRN Continue other medications: Allopurinol 300 mg daily, pantoprazole 40 mg daily VTE: Heparin SQ 5,000 units TID Gi: Pantoprazole Tubes/lines: PIV Telemetry Indication: Heart failure Code Status: Full Code Disposition: Home - self care Janeth Rojas P.A.-C., #[id number] 07/12/24 RST CARD 5 I personally spent a total 50 minutes providing and coordinating care today. PER CASER PER CASER * Shital Frank M.D., Pharm.D. - 07/11/2024 9:18 AM CST SUBJECTIVE I have seen and examined Mrs. Dobbs in her room with the inpatient Heart failure Service. Patient is sitting up in a chair. She appears quite somnolent and notes intermittent interruption by staff. Patient's orthopnea precludes sleeping in a bed and she has been sleeping in her chair for some time. Over the last 24 hours patient had a robust response to IV diuresis with a net negative volume balance of 2.1 L over the last 24 hours. She is also net -1 L since midnight. Mrs. Dobbs remains afebrile up to 37??, heart rates are between 95-110 bpm, blood pressure 100-125/55-104 mmHg; SpO2 91-97% on 3 to 4 L by nasal cannula Telemetry: Patient remains in sinus rhythm with a rare episode of nonsustained VT (5 beats) Interval History: 54-year old female with medical history significant for pulmonary hypertension and right heart failure in the setting of severe tricuspid valve regurgitation, high output heart failure secondary to severe transfusion dependent anemia, status post splenomegaly, primary myelofibrosis, nocturnal hypoxemia, chronic pain syndrome, and 5 months history of progressively worsening shortness of breath and 70 lb weight gain in the setting of non adherence to dietary restriction, volume restrictions, and diuretic regimen. The following portions of the patient's history were reviewed and updated as appropriate: allergies, current medications, outpatient medications, family history, medical history, social history, surgical history, and problem list. OBJECTIVE Admission Weight: (!) 140 kg Current Weight: (!) 137 kg Weight: (!) 137 kg, BMI (Calculated): 46.7 kg/m??, Blood Pressure: (!) 104/43, Heart Rate: 103, Pulse Rate: 102, Resp Rate: 21, Temperature: 37.2 ??C, SpO2: 92 % Intake/Output Last 48 Hours: Intake/Output 07/10/24 0700 - 07/11/24 0659 07/11/24 0700 - 07/12/24 0659 Intake (ml) 1707.8 240 Output (ml) 3400 350 Net (ml) -1692.3 -110 PHYSICAL EXAM General appearance: alert, appears stated age, no distress, and morbidly obese Neck: Difficult to examine due to body habitus, but patient unable to tolerate laying in bed consistent with elevated biventricular filling pressures. Lungs: diminished breath sounds bilateral lung bases and crackles heard best in posterior lung patton Heart: neither S1: normal nor S2: increased P2 nor systolic murmur: holosystolic 3/6, blowing cardiac base Extremities: edema 3+ bilateral lower extremity edema up to level of the mid thigh, extremities normal, warm and well-perfused Skin: Skin color, texture, turgor normal. No rashes or lesions. Neurologic: Grossly normal DIAGNOSTICS ASSESSMENT / PLAN #1 WHO mixed etiology (group 2, 3 and 5) pulmonary hypertension #2 Severe tricuspid valve regurgitation (ERO 0.42 cm^2; regurgitant volume 49 cc) #3 Transfusion dependent anemia #4 Primary myelofibrosis on JAK2 inhibitor therapy #5 Status post splenomegaly #6 Nocturnal hypoxemia (untreated) #7 Severe RV enlargement and severely reduced systolic function (RV strain -12%) #8 Chronic pain syndrome #9 Gastroesophageal reflux disease #10 Anemia of chronic disease The following plan assessment has been discussed with the patient 1. Continue intravenous diuresis with furosemide continuous infusion with plans to redose chlorothiazide 250 mg once diuretic today with ongoing close surveillance and repletion of electrolytes.. Encouraged patient to consider leg wraps and elevation 2. Patient has had an appropriate response to packed RBC transfusion. Will reassess and determine need for further transfusion tomorrow 3. Continue sildenafil therapy in this time with plans to reduced dose by 50% in the setting symptomatic systemic hypotension to allow for further aggressive diuresis. 4. Patient will need ongoing education as non adherence to fluid and dietary restriction a contributory to current decompensation heart failure symptoms. Shital Frank M.D., Pharm.D. Inpatient Heart failure Service PER CASER PER CASER * Shital Frank M.D., Pharm.D. - 07/10/2024 8:55 AM CST SUBJECTIVE I have seen and examined Mrs. Dobbs in her room with the inpatient Heart failure Service. Patient is sitting up in a chair. She notes having a rough night due to frequency of diuresis. Patient's orthopnea precludes sleeping in a bed and she has been sleeping in her chair for some time. Over the last 24 hours patient had a robust response to IV diuresis with a net negative volume balance of 3.3 Lover the last 24 hours. She is also net -1.2 L since midnight. Mrs. Dobbs remains afebrile up to 37??, heart rates are between 95-110 bpm, blood pressure 100-125/55-104 mmHg; SpO2 91-97% on 2 L by nasal cannula Telemetry: Patient remains in sinus rhythm with a rare episode of nonsustained VT (3 beats). Interval History: 54-year old female with medical history significant for pulmonary hypertension and right heart failure in the setting of severe tricuspid valve regurgitation, high output heart failure secondary to severe transfusion dependent anemia, status post splenomegaly, primary myelofibrosis, nocturnal hypoxemia, chronic pain syndrome, and 5 months history of progressively worsening shortness of breath and 70 lb weight gain in the setting of non adherence to dietary restriction, volume restrictions, and diuretic regimen. The following portions of the patient's history were reviewed and updated as appropriate: allergies, current medications, outpatient medications, family history, medical history, social history, surgical history, and problem list. OBJECTIVE Admission Weight: (!) 140 kg Current Weight: (!) 136 kg Height: 171 cm, Weight: (!) 136 kg, BMI (Calculated): 46.5 kg/m??, Blood Pressure: 125/57, Heart Rate: 99, Pulse Rate: 98, Resp Rate: 16, Temperature: 37 ??C, SpO2: 91 % Intake/Output Last 48 Hours: Intake/Output 07/09/24 0700 - 07/10/24 0659 07/10/24 0700 - 07/11/24 0659 Intake (ml) 2346.4 300 Output (ml) 5400 2000 Net (ml) -3053.6 -1700 PHYSICAL EXAM General appearance: alert, appears stated age, no distress, and morbidly obese Neck: Difficult to examine due to body habitus, but patient unable to tolerate laying in bed consistent with elevated biventricular filling pressures. Lungs: diminished breath sounds bilateral lung bases and crackles heard best in posterior lung [place] Heart: neither S1: normal nor S2: increased P2 nor systolic murmur: holosystolic 3/6, blowing cardiac base Extremities: edema 3+ bilateral lower extremity edema up to level of the mid thigh, extremities normal, warm and well-perfused Skin: Skin color, texture, turgor normal. No rashes or lesions. Neurologic: Grossly normal DIAGNOSTICS ASSESSMENT / PLAN #1 WHO mixed etiology (group 2, 3 and 5) pulmonary hypertension #2 Severe tricuspid valve regurgitation (ERO 0.42 cm^2; regurgitant volume 49 cc) #3 Transfusion dependent anemia #4 Primary myelofibrosis on JAK2 inhibitor therapy #5 Status post splenomegaly #6 Nocturnal hypoxemia (untreated) #7 Severe RV enlargement and severely reduced systolic function (RV strain -12%) #8 Chronic pain syndrome #9 Gastroesophageal reflux disease #10 Anemia of chronic disease The following plan assessment has been discussed with the patient 1. Continue intravenous diuresis with furosemide continuous infusion with plans to intermittent bolus thiazide diuretic with to close surveillance and repletion of electrolytes.. Encouraged patient to consider leg wraps and elevation while seated. 2. Patient has had an appropriate response to packed RBC transfusion. Will reassess and determine need for further transfusion. 3. Continue sildenafil therapy in this time with plans to reduced dose by 50% in the setting symptomatic systemic hypotension to allow for further aggressive diuresis. 4. Patient will need ongoing Education as non adherence to fluid and dietary restriction a contributory to current decompensation heart failure symptoms. Shital Frank M.D., Pharm.D. Inpatient Heart failure Service PER CASER PER CASER * Blanca Lela, PharmZahraaD., R.Ph., [facility] - 07/10/2024 8:32 AM CST Pharmacist Progress Note Reason for admission: decompensated high output heart failure in the setting of pulmonary hypertension and severe tricuspid regurgitation PMH: myelofibrosis s/p multiple ELSI inhibitors, transfusion dependent anemia, PH, severe tricuspid regurgitation, chronic sleep-related breathing disorder and nocturnal hypoxia, intolerant of PAP, s/p splenectomy OBJECTIVE Neuro: Chronic bone pain - morphine ER BID+oxycodone PRN, medical cannabis CV: HF-furosemide 15 mg/hr PH-sildenafil 20 mg TID Neph: Estimated Creatinine Clearance: 67.9 mL/min (A) (by C-G formula based on SCr of 1.34 mg/dL (H)). BL 1-1.3 allopurinol Heme-myelofibrosis - hydroxyurea PPX: sq heparin 7500u. GERD - pantoprazole Medication Reconciliation: Held: torsemide, danazol (pt refusing due to increased anxiety) Changed: TBD New: TBD ASSESSMENT / PLAN Heart failure. ECHO today. Diuresis with IV furosemide. Supplement to keep K>4 mmol/L and Mg>2 mg/dL. Pulmonary hypertension, consulted PH team Continues on sildenafil. Patients is using their own supply of medical cannabis. Ensure that the medical cannabis policy is being followed and patient has their [place] medical cannabis registration. Policy: Medical Cannabis in Patient Care Procedure - [place] The use of cannabis without [place] medical cannabis registration is not supported. Ensure the proper Medical Cannabis form is being used: Controlled Substance Disposition and Inventory Record form [id number]). Chronic bone pain Recommend starting scheduled senna since last bowel movement was 07/08 in setting of chronic opioiduse. Blanca Leal Pharm.D., R.Ph., BCPS PER CASER * Zeinab Fenton APRN, C.N.P., M.S.N. - 07/10/2024 8:13 AM CST THIS IS A SIGN OFF NOTE DCS will sign off on this 54 y.o. female admitted on 07/08/2024 for Hypertension Pulmonary (HCC). Preadmission therapy: NONE. Blood Glucose Results in Last 24 Hours: Recent Labs 07/10/24 0545 07/10/24 0543 07/09/24 2107 07/09/24 1712 07/09/24 1558 07/09/24 1203 GLUCOSEPOC -- 120 124 123 -- 116 GLUCOSE 108 -- -- -- 126 -- Creatinine: Lab Results Component Value Date CREATININE 1.34 (H) 07/10/2024 Nutrition: Current Diet Adult Diet Regular; 2,000 mg Na; 2000 mL Fluid starting at 07/08 1629 Yesterday patient received no insulin. RECOMMENDATIONS: - Monitor Blood Glucose: four times daily before meals and bedtime - Goal Blood Glucose: 140-180 mg/dL - NovoLog mild correction scale three times daily - DISMISSAL PLAN: Continue diet and lifestyle modifications. Monitor Blood Glucose: patient declined metering at consult Goal: 100-140 mg/dL per weekly lab draws DCS will sign off. Please reconsult DCS if blood glucoses are consistently out of goal range or if further assistance is needed. Thank you for the consult. Discussed plan with primary service. Pleasepage [phone] with any questions. PER CASER * Christoph Arce APRN, C.N.P., D.N.P. - 07/09/2024 10:42 AM WRAPPER CASER Associated Order(s): Diabetes consult (hospital) SUBJECTIVE Diabetes consult (hospital) Referring Provider: Janeth Rojas P.A.-C. CHIEF COMPLAINT/REASON FOR CONSULT Patient seen today for blood glucose management. The patient was admitted on 07/08/2024 for Hypertension Pulmonary (HCC) HISTORY OF PRESENT ILLNESS DIABETES HISTORY: No history of diabetes. PREADMISSION DIABETES THERAPY: none. GLUCOSE MONITORING: The patient does not monitor blood glucose at home HYPOGLYCEMIA: Patient denies episodes of hypoglycemia. DIABETES COMPLICATIONS/CO-MORBIDITIES: Pulmonary hypertension, primary myelofibrosis s/p multiple therapies, leukocytosis secondary to myelofibrosis, transfusion-dependent anemia with weekly transfusions, splenectomy 02/2022, anxiety, insomnia, nocturnal hypoxemia. DIET: Eats 2-3 meals a day. Drinks 1-2 cans of regular Mountain Dew each morning, eats at least 1 hard candy each day, eats a fair amount of ice cream and other dairy products. ACTIVITY: No regular exercise. FAMILY HISTORY Family history of diabetes mellitus includes grandmother, mother, aunt. HOSPITAL COURSE: Past 24 Hour Blood Glucose Readings: Recent Labs 07/09/24 0600 07/08/24 1720 GLUCOSE 111 146 H Yesterday received no insulin. STEROIDS: None Current Diet Adult Diet Regular; 2,000 mg Na; 2000 mL Fluid starting at 07/08 1629 REVIEW OF SYSTEMS Pertinent items are noted in History of Present Illness. PREADMISSION MEDICATION: Diabetes medication(s) were reconciled on 07/09/2024. OBJECTIVE VITAL SIGNS Temperature: 36.9 ??C Heart Rate: 92 Resp Rate: 14 Blood Pressure: 114/54 BP Location: Left arm;Upper SpO2: 93 % Flow Rate (L/min): 2 L/min BSA (Calculated - sq m): 2.58 sq meters BMI (Calculated): 47.1 kg/m?? Height: 171 cm Weight: (!) 138 kg Body mass index is 47.13 kg/m??. PHYSICAL EXAMINATION Constitutional Appearance: Normal appearance. She is obese. HENT Head: Normocephalic and atraumatic. Pulmonary Effort: Pulmonary effort is normal. Skin General: Skin is dry. Neurological Mental Status: She is alert and oriented to person, place, and time. Psychiatric Behavior: Behavior normal. Thought Content: Thought content normal. DIAGNOSTICS I have reviewed relevant diagnostics and labs. Lab Results Component Value Date HGBA1C 7.4 (H) 07/09/2024 FRUCTOSAMINE 236 07/09/2024 Estimated Creatinine Clearance: 70.6 mL/min (A) (by C-G formula based on SCr of 1.3 mg/dL (H)). Lab Results Component Value Date CREATININE 1.30 (H) 07/09/2024 ASSESSMENT / PLAN #1 Hyperglycemia, A1c 7.4%, likely inaccurate in the setting of splenectomy and anemia with weekly blood transfusions #2 Blood glucose within goal #3 Primary myelofibrosis #4 Anemia requiring weekly blood transfusions #5 Splenectomy 02/2022 #6 Steroid use 11/11/2023-07/08/2024 I had the opportunity to meet Mrs. Dobbs at bedside to review blood glucose trends. Patient has nohistory of blood glucose and has non-fasting lab work done weekly that, per patient, shows a normal glucose. I am unable to view weekly lab work in care everywhere. According to [facility] Lab records random blood glucose during various care encounters completed in past year range from 97-127 mg/dL. Upon admission patient had a postprandial blood glucose reading of 146 mg/dL, a Hgb A1c of 7.4%and fructosamine of 236. Due to splenectomy and anemia requiring weekly blood transfusions Hgb A1c is thought to be inaccurate. According to pharmacy patient was using prednisone 20mg BID as prescribed from 11/11/2023 until approximately March or April 2024, last refill obtained December 2023. Patient unable to verify current medication regimen stating her manages her medications. Due toanticipated inaccuracy of long-term glucose testing methods we will continue to trend hospital glucose values while inpatient but at this point I do not suspect patient qualifies for a diabetes diagnosis. INPATIENT PLAN: - Blood Glucose Monitoring: four times daily before meals and bedtime - Glucose Goal: 140-180 mg/dL. - Basal: No basal insulin. - Mealtime: None. No mealtime insulin. - Correction Scale: NovoLog mild correction scale three times a day - DCS will evaluate and adjust insulin doses as indicated to achieve glycemic goal. ANTICIPATED DISMISSAL PLAN: Recommend lifestyle management and routine monitoring of fasting glucose in outpatient setting. Patient not ready to make lifestyle changes in current health state and states she cannot afford a glucometer for point of care testing. Will continue to follow. Blood Glucose Frequency: daily Goal: 100-140 mg/dL Please page DCS within 24 hours prior to hospital dismissal for final dismissal recommendations. Discussed above plan with the patient, nurse, and cardiology . Patient is alert and oriented and inagreement with the plan. Thank you for the consult. DCS pager [phone] will follow. Call primary service for diabetes concerns between 6:30 p.m. and 6:30 a.m. Primary service to contact program manager transportation Endocrinology fellow via hospital offset lithographic press operator for questions. PER CASER * Cathi Bains, Julien.D., R.Ph. - 07/09/2024 10:05 AM CST Pharmacist Progress Note Reason for admission: heart failure PMH: myelofibrosis s/p multiple ELSI inhibitors, transfusion dependent anemia, PH OBJECTIVE Neuro: morphine ER BID+oxycodone PRN, medical cannabis CV: HF-furosemide 10 mg/hr PH-sildenafil 20 mg TID Neph: Estimated Creatinine Clearance: 70.6 mL/min (A) (by C-G formula based on SCr of 1.3 mg/dL (H)). allopurinol Heme-hydroxyurea PPX: SQH Medication Reconciliation: Held: torsemide Changed: TBD New: TBD ASSESSMENT / PLAN Heart failure. ECHO today. Diuresis with IV furosemide. Supplement to keep K>4 mmol/L and Mg>2 mg/dL. Pulmonary hypertension, consulted PH team Continues on sildenafil. Patients is using their own supply of medical cannabis. Ensure that the medical cannabis policy is being followed and patient has their [place] medical cannabis registration. Policy: Medical Cannabis in Patient Care Procedure - [place] The use of cannabis without [place] medical cannabis registration is not supported. Ensure the proper Medical Cannabis form is being used: Controlled Substance Disposition and Inventory Record form [id number]). Cathi Bains, Pharm.D., R.Ph. PER CASER * Blanca Ballesteros P.T., D.P.T., CCS - 07/09/2024 9:45 AM CST Discussed with patient. She feels that she is moving better today then yesterday. Will check with patient on Friday to assess need for physical therapy as patient is moving in room due to medications. Blanca Ballesteros P.T., D.P.T., CCS PER CASER * Shital Frank M.D., Pharm.D. - 07/09/2024 8:27 AM CST SUBJECTIVE I have seen and examined Mrs. Dobbs in her room with the inpatient Heart failure Service. Patient is sitting up in a chair and having lunch. Patient's is also at the bedside during my visit.Patient denies any acute cardiopulmonary symptoms she is status post furosemide 120 mg bolus x 1 and furosemide continuous infusion at 10 mg an hour. Over the last 24 hours she is net negative 1.1 L and weights are down by 2 kg. Interval History: 54-year old female with medical history significant for pulmonary hypertension and right heart failure in the setting of severe tricuspid valve regurgitation, high output heart failure secondary to severe transfusion dependent anemia, status post splenomegaly, primary myelofibrosis, nocturnal hypoxemia, chronic pain syndrome, and 5 months history of progressively worsening shortness of breath and 70 lb weight gain in the setting of non adherence to dietary restriction, volume restrictions, and diuretic regimen. The following portions of the patient's history were reviewed and updated as appropriate: allergies, current medications, outpatient medications, family history, medical history, social history, surgical history, and problem list. OBJECTIVE Admission Weight: (!) 140 kg Current Weight: (!) 138 kg Height: 171 cm, Weight: (!) 138 kg, BMI (Calculated): 47.1 kg/m??, Blood Pressure: (!) 114/54, Heart Rate: 92, Pulse Rate: 92, Resp Rate: 14, Temperature: 36.8 ??C, SpO2: 93 % Intake/Output Last 48 Hours: Intake/Output 07/08/24 0700 - 07/09/24 0659 07/09/24 0700 - 07/10/24 0659 Intake (ml) 1024.2 795 Output (ml) 2750 250 Net (ml) -1725.8 545 PHYSICAL EXAM General appearance: alert, appears stated age, no distress, and morbidly obese Neck: Difficult to examine due to body habitus, but patient unable to tolerate laying in bed consistent with elevated biventricular filling pressures. Lungs: diminished breath sounds bilateral lung bases and crackles heard best in posterior lung patton Heart: neither S1: normal nor S2: increased P2 nor systolic murmur: holosystolic 3/6, blowing cardiac base Extremities: edema 3+ bilateral lower extremity edema up to level of the mid thigh, extremities normal, warm and well-perfused Skin: Skin color, texture, turgor normal. No rashes or lesions. Neurologic: Grossly normal DIAGNOSTICS I have reviewed the following: Chest xray IMPRESSION: Since 03/16/2022, interval development of mild interlobular septal thickening, increased prominence of the pulmonary vasculature, increased enlargement of the cardiac silhouette size consistent with mild pulmonary edema. New right lower lobe airspace opacity and small right pleural effusion may represent a superimposed infectious/inflammatory process. Linear subsegmental left lower lobe atelectasis or scarring. Elevated right hemidiaphragm. Echocardiogram 1. Severely enlarged right ventricular chamber size, [...] RA pressure. RV strain is significantly lower. Labs Lab Results Component Value Date NA 143 07/09/2024 KSERUM 5.3 07/09/2024 CL 102 07/09/2024 BUN 41 07/09/2024 CREATININE 1.30 07/09/2024 GLUCOSE 111 07/09/2024 CALCIUM 8.4 07/09/2024 MG 2.5 07/09/2024 TSH 7.3 07/09/2024 Lab Results Component Value Date WBC 32.3 07/08/2024 HGB 6.7 07/09/2024 HCT 22.3 07/09/2024 MCV 92.9 07/09/2024 PLT 417 07/09/2024 Lab Results Component Value Date CHOL 93 07/09/2024 TRIG 118 07/09/2024 HDL 17 07/09/2024 . ASSESSMENT / PLAN #1 WHO mixed etiology (group 2, 3 and 5) pulmonary hypertension #2 Severe tricuspid valve regurgitation (ERO 0.42 cm^2; regurgitant volume 49 cc) #3 Transfusion dependent anemia #4 Primary myelofibrosis on JAK2 inhibitor therapy #5 Status post splenomegaly #6 Nocturnal hypoxemia (untreated) #7 Severe RV enlargement and severely reduced systolic function (RV strain -12%) #8 Chronic pain syndrome #9 Gastroesophageal reflux disease #10 Anemia of chronic disease Mrs. Jennifer Dobbs is a 54-year-old female with medical history summarized above admitted with a 5 month history of progressive worsening shortness of in the setting of non adherence to diuretic regimen, non adherence to dietary and fluid restriction resulting in a 70 lb weight gain. Patient's dry weight is recorded at 248 lb and on this admission she is currently weighs 308 lb. I have reviewedimaging and laboratory biomarkers testing obtained and discuss the relevant findings with the patient. Patient continues to endorse orthopnea, paroxysmal nocturnal dyspnea, worsening lower extremity edema, and profound weight gain. Transthoracic echocardiogram obtained on admission is consistent with severely elevated pulmonary pressures, dysfunctional right ventricular function, and an underfilled D shaped left ventricle. The following plan assessment has been discussed with the patient and her . 1. Continue intravenous diuresis with furosemide continuous infusion with plans to intermittent bolus thiazide diuretic with to close surveillance and repletion of electrolytes. 2. Will transfuse 1 unit of packed RBCs at slow infusion rate in the setting of RV failure 3. Continue sildenafil therapy in this time with plans to reduced dose by 50% in the setting symptomatic systemic hypotension to allow for further aggressive diuresis. 4. Appreciate further recommendations from the Pulmonary hypertension consult team 5. Remainder per Janeth Frank M.D., Pharm.D. Inpatient Heart failure Service [id number] PER CASER PER CASER * Janeth Rojas P.A.-C. - 07/09/2024 7:12 AM CST RST CARD 5 CARDIOLOGY INPATIENT PROGRESS NOTE SUBJECTIVE Ms. Dobbs was seen and examined on morning rounds. Patient reports she is doing well this morning and denies any acute complaints. OBJECTIVE TELEMETRY Sinus rhythm, rates = 75-115 bpm - no pertinent alarms overnight INTAKE/OUTPUT Past 24 hours: Intake/Output Summary (Last 24 hours) at 07/09/2024 0712 Last data filed at 07/09/2024 0700 Gross per 24 hour Intake 1144.17 ml Output 2750 ml Net -1605.83 ml Net Hospitalization: -1.6 L Admission Weight: (!) 140 kg Today's weight: (!) 138 kg Weight change since admit: -2.0 kg Body mass index is 47.13 kg/m??. VITAL SIGNS Temperature: [36.8 ??C-37.1 ??C] 36.8 ??C Heart Rate: [79-113] 92 Resp Rate: [13-32] 14 Blood Pressure: (107-128)/(51-66) 114/54 SpO2: [84 %-95 %] 93 % Flow Rate (L/min): [2 L/min-3 L/min] 3 L/min Height: [171 cm] 171 cm Weight: [138 kg-140 kg] 138 kg BSA (Calculated - sq m): [2.58 sq meters] 2.58 sq meters BMI (Calculated): [47.1 kg/m??-47.9 kg/m??] 47.1 kg/m?? Pulse Rate: [77-123] 92 PHYSICAL EXAMINATION General: Alert and oriented, appears of stated age, does not appear acutely ill, sitting upright inchair, conversational Heart: Regular rhythm, rapid rate, systolic murmur appreciated at LLSB, JVD: Appreciated to level of the jaw Lungs: On room air, normal respiratory effort with conversation, breath sounds clear and present bilaterally, mild crackles appreciated bilaterally Abdomen: Soft, nondistended, nontender to light palpation, bowel sounds appreciated throughout Extremities: Warm, 2+ pitting edema bilaterally DIAGNOSTICS I personally reviewed all radiology and labs from the past 24 hrs. Labs on 07/09/24: Hemoglobin: 6.7, hematocrit: 22.3, platelet count: 417, leukocytes: 25.7 Sodium: 143, potassium: 5.3, chloride: 102, bicarbonate: 32, anion gap: 9, BUN: 41, creatinine: 1.30, EGFR: 48, total calcium: 8.4, glucose: 111, magnesium: 2.5 Total bilirubin: 1.3, ALT: 42, AST: 50, alkaline phosphatase: 271, total protein: 5.8, albumin: 3.8 Total cholesterol: 93, HDL: 17, LDL: 54, triglycerides: 118, non HDL: 76 TSH: 7.3 Hemoglobin A1c: 7.4 ASSESSMENT / PLAN #1 Acute on chronic high output heart failure with preserved LVEF 64% (TTE 01/22/2024) #2 Pulmonary arterial hypertension, query group 1 vs 5 in the setting of #4, on sildenafil #3 Severe tricuspid regurgitation #4 Type 2 CALR, SF3B1 mutated primary myelofibrosis S/P multiple prior therapies including ruxolitinib, fedratinib, pacritinib, and momelotinib, and 2 clinical trials, Alisertib and 9-ING. 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 Dobbs is a 54 y.o. female with history of high-output HFpEF, pulmonary arterial hypertension on sildenafil, and primary myelofibrosis. She was directly admitted 07/08/24 by recommendation of for decompensated heart failure and 70 lb weight gain. On arrival to PCU, patient was vitally stable and grossly volume overloaded. Patient was initiated on furosemide 10 mg/hour drip and given bolus of 120 mg. This morning patient is net -1.6 L and down2 kg from admission weight. On exam patient still appears grossly volume overloaded so will increase drip to 15 mg/hr and give bolus of diuril today. Per patient, goal dry weight is 240 lbs/109 kg which makes patient currently 38 kg above dry weight. Will also get a limited TTE today. Of note patient is not currently following diet and consuming outside food for meals so expect there will be a discrepancy with intake documentation. Currently patient is on sildenafil 20 mg 3 times/daily for pulmonary arterial hypertension. Etiology for pulmonary hypertension is felt to be group 1 vs group 5 in the setting of primary myelofibrosis. Pulmonary hypertension team has been consulted while patient is in hospital. Patient has primary myelofibrosis s/p multiple ELSI inhibitors, splenectomy in 02/2022, and two clinical trials. Due to myelofibrosis patient has also required weekly transfusions and danazol for anemia and takes hydroxyurea twice daily for management of leukocytosis and thrombocytosis. Hematology was curbsided this AM and recommended continuing on current therapy with goal to maintain hemoglobin & gt;7.5 and no bone marrow biopsy needed. Given anemia with hemoglobin of 6.7 today will plan to give 1 unit of PRBC today. Due severe RV overload present on past TTE, will plan to give transfusion athalf speed and give diuretic bolus before and after transfusion to avoid further overload. Morning labs today demonstrate an elevated hemoglobin A1C of 7.4%. Will consult DCS for possible new type 2 diabetes mellitus. Plan: Diuresis Increase furosemide drip to 15 mg/hr and give diuril bolus of 250 mg Repeat BMP this afternoon Limited TTE today Continue sildenafil 20 mg TID Pulmonary Hypertension team consulted Myelofibrosis with anemia Hematology curbsided: continue therapy, maintain hemoglobin >7.5, no bone marrow biopsy Give 1 unit of PRBC at half speed due to risk of RV overload Continue danazol 200 mg BID and hydroxyurea 500 mg BID Consult DCS for new diabetes diagnosis Chronic pain management: Morphine ER 30 mg BID, medical cannabis 2 tablets PRN Continue medications: Allopurinol 300 mg daily, pantoprazole 40 mg daily, VTE: Heparin SQ 5,000 units TID Gi: Pantoprazole Tubes/lines: PIV Telemetry Indication: Heart Failure Code Status: Full Code Disposition: Uncertain Janeth Rojas P.A.-C., #[id number] 07/09/24 RST CARD 5 I personally spent a total 50 minutes providing and coordinating care today. PER CASER PER CASER documented in this encounter H&P Notes * Lanette Solis I., DANNY, C.N.P., M.S.N. - 07/08/2024 2:42 PM CST CARDIOLOGY INPATIENT ADMISSION NOTE CHIEF COMPLAINT/REASON FOR VISIT Acute on chronic high output heart failure Collaborating physician: Ludin Moreno M.D. Admitting service: RST CARD 5 HISTORY OF PRESENT ILLNESS Mrs. Dobbs is 54year old female that is being directly admitted for decompensated high output heart failure in the setting of pulmonary hypertension and severe tricuspid regurgitation. She has medical comorbidities that include but are not limited to primary myelofibrosis, status post multiple ELSI inhibitors; ruxolitinib, fedratinib, pacritinib and momelotinib, and 2 clinical trials, Alisertib and 9-ING, status post splenectomy in February 2022, transfusion-dependent anemia, pulmonary hypertension in context of severe chronic anemia with myelofibrosis and also has severe tricuspid regurgitation, chronic bone pain treated with narcotics and substantial sleep disordered breathing that so far is untreated D/T nose bleeds. Briefly, she has had worsening shortness of breath and weight gain since April [address] Mayes in the clinic. At that time, she was offered admission to assist in expediting the fluid removal and she declined. She called the clinic today as she continued to gain weight and increased shortness of breath and would like to be admitted for fluid removal. Upon arrival to the PCU she was hemodynamically stable resting comfortably she is quite tachypneic and extremely anxious on exam. She is scared that she came in to late and something bad will happen while she is here. She endorsers shortness of breath with any activity. Her reported dry weight is 248lbs and she is 308lbs on admission. She does endorse some dietary indiscretions as she does not know how much salt she actually should be eating a day. She also endorses not taking her diuretic all the time as she doesn't like to use the bathroom frequently. She denies any chest pain or abdominal pain. HOME MEDICATIONS Current Outpatient Medications on File Prior to Encounter: acetaminophen (TYLENOL) 500 mg tablet, Take 2 tablets (1,000 mg total) by mouth every 6 (six) hoursas needed for pain (Do not exceed 4000mg/day.)., Past Month allopurinoL (Zyloprim) 300 mg tablet, TAKE 1 TABLET BY MOUTH DAILY, 07/08/2024 danazoL (Danocrine) 200 mg capsule, Take 1 capsule (200 mg total) by mouth 2 (two) times a day., 07/08/2024 diphenhydrAMINE-acetaminophen (TYLENOL PM) 25-500 mg per tablet, Take 2 tablets by mouth at bedtimeas needed for sleep., 07/07/2024 hydroxyurea (Hydrea) 500 mg capsule, TAKE 1 CAPSULE BY MOUTH TWICE DAILY AT THE SAME TIME EVERY DAY, 07/08/2024 medical cannabis tablet, Take 1 tablet by mouth every 8 (eight) hours as needed (pain). CBD component: 10 mg, Past Month morphine (MS CONTIN) 30 mg ER tablet, Take 30 mg by mouth 2 (two) times a day., 07/08/2024 omeprazole (PriLOSEC) [address] capsule, Take 1 capsule (20 mg total) by mouth daily., 07/08/2024 oxyCODONE (Oxy IR) 5 mg immediate release capsule, Take 5 mg by mouth as needed., Past Week sennosides (SENOKOT) 8.6 mg tablet, Take 2 tablets by mouth at bedtime as needed., 07/07/2024 sildenafil (REVATIO) 20 mg tablet, Take 1 tablet (20 mg total) by mouth 3 (three) times a day., 07/08/2024 sodium-potassium bicarbonate (VASYL-SELTZER GOLD) 344-1,050-1,000 mg tablet, effervescent, Take 1 tablet by mouth daily as needed (upset stomach)., Past Week torsemide (Demadex) 20 mg tablet, Take 2 tablets (40 mg total) by mouth 2 (two) times a day., 07/08/2024 [DISCONTINUED] medical cannabis tablet, Take 1 tablet by mouth every 8 (eight) hours as needed (pain)., 07/07/2024 DME CPAP, DME Order, More than a month morphine (MS CONTIN) 15 mg ER tablet, TAKE 1 TABLET BY MOUTH EVERY 12 HOURS FOR PAIN, More than a month UNABLE TO FIND, Med Name: Cannabis- patient's reports this is newly prescribed for her and as of 03/11/22, has not yet started. Reports patient will have gummies as well as a tablet, have not picked these up yet. Strength of these is not known because they are new for her., Unknown [DISCONTINUED] buPROPion XL (WELLBUTRIN XL) 150 mg 24 hr tablet, Take 150 mg by mouth daily. [DISCONTINUED] oxyCODONE (ROXICODONE) 5 mg immediate release tablet, Take 1 tablet (5 mg total) by mouth 2 (two) times a day Indication: Acute Pain Exception. (Patient taking differently: Take 5 mg by mouth 2 (two) times a day.), More than a month [DISCONTINUED] predniSONE (Deltasone) 20 mg tablet, Take 1 tablet by mouth 2 (two) times a day. [DISCONTINUED] RX WELCOME [id number]-[id number]-OO ONLY, Welcome packet SOCIAL HISTORY reports that she quit smoking about 11 years ago. Her smoking use included cigarettes. She started smoking about 38 years ago. She has a 26 pack-year smoking history. She has never been exposed to tobacco smoke. She has never used smokeless tobacco. She reports current alcohol use. She reports current drug use. Drug: Marijuana. FAMILY HISTORY Family History Problem Relation Name Age of Onset Stroke Mother Heart Father OBJECTIVE VITAL SIGNS: Temperature: [36.8 ??C] 36.8 ??C Heart Rate: [111] 111 Resp Rate: [23] 23 Blood Pressure: (128)/(66) 128/66 SpO2: [84 %] 84 % Weight: [140 kg] 140 kg Pulse Rate: [112] 112 Body mass index is 47.74 kg/m??. PHYSICAL EXAMINATION General: Ms. Dobbs is a 54 y.o. female. Heart: Regular rate and rhythm, no murmur rub or gallop. Positive peripheral pulses. 3+ bilateral extremity pitting edema to the hip. JVP elevated to the temporal. Lungs: Clear to auscultation bilaterally and throughout. On room air. No cough. Abdomen: Abdomen is rounded and firm. No rebound tenderness, guarding. Positive bowel sounds. Musculoskeletal/Joints: Full ROM. No joint erythema, swelling, tenderness. Mental: Alert and oriented to person, place, time and situation. Good historian. Neuro: Examined and normal, no neurological deficits were appreciated. Skin: Warm, dry, color normal for race. Grossly intact. Eyes: PERRLA, EOM intact, no scleral icterus. ENT: Mucous membranes moist, no oral lesions. Not assessed dentition. DIAGNOSTICS No results found. Transthoracic echocardiogram: Date resulted 01/22/2024 Final Impressions 1. Severely enlarged right ventricular [...] RA pressure. RV strain is significantly lower. Right heart catheterization Date resulted 04/27/2024 HEMODYNAMICS SUMMARY Severely elevated RA mean pressure. Elevated RA v-wave pressure. V-wave compatible with TR. Baseline RA 18 PA 73/31/47 PAWP 18 CO/CI 9.9/4.3 PVR 2.9 GARIBAY art sat 86% PA sat 46% Nitric oxide RA 18 PA 63//44 PAWP 19 CO/CI 11.4/4.9 PVR 2.2 GARIBAY art sat 80% PA sat 45% Findings indicative of severely elevated right and left heart filling pressures with severely elevated pulmonary artery pressure, mildly elevated PVR, and high cardiac output state in context of severe anemia. Systemic hypoxemia. No results found for this or any previous visit (from the past 24 hours). Lab Results Component Value Date WBC 53.97 (H) 07/06/2024 HGB 6.8 (L) 07/08/2024 HCT 22.4 (L) 07/08/2024 MCV 91.8 07/08/2024 PLT 438 07/06/2024 Lab Results Component Value Date NA 142 06/11/2024 KSERUM 5.0 06/11/2024 KBLOOD 4.5 03/13/2022 KPLASMA 4.5 04/26/2024 EXTK 3.9 06/07/2024 CL 101 06/11/2024 BICARB 31 (H) 06/11/2024 CREATININE 1.36 (H) 06/11/2024 EGFRBLKAA 63 02/13/2022 EGFRNONBLKAA 55 (L) 02/13/2022 EGFR 46 (L) 06/11/2024 BUN 38 (H) 06/11/2024 ANIONGAP 10 06/11/2024 GLUCOSE 127 06/11/2024 GLUCOSEPOC 122 02/16/2021 CALCIUM 8.7 06/11/2024 ASSESSMENT / PLAN #1 acute on chronic high output heart failure #2 pulmonary hypertension, on sildenafil #3 severe tricuspid regurgitation #4 type 2 CALR, SF3B1 mutated primary myelofibrosis S/P multiple prior therapies including ruxolitinib, fedratinib, pacritinib, and momelotinib, and 2 clinical trials, Alisertib and 9-ING. #5 Anemia, transfusion dependent #6 S/P splenectomy February 2022 #7 Chronic bone pain treated with narcotics #8 Substantial sleep disordered breathing, untreated D/T nosebleed with CPAP #9 GERD #10 Anxiety #11 Insomnia #12 Leukocytosis, secondary to myelofibrosis Ms. Dobbs is a 54 y.o. female who presented from home as a direct admission for acute on chronic heart failure. Upon arrival to the PCU she was hemodynamically stable resting comfortably she is quite tachypneic and extremely anxious on exam. She is scared that she came in to late and something badwill happen while she is here. She endorsers shortness of breath with any activity. Her reported dry weight is 248lbs and she is 308lbs on admission. She does endorse some dietary indiscretions as she does not know how much salt she actually should be eating a day. She also endorses not taking her diuretic all the time as she doesn't like to use the bathroom frequently. She denies any chest pain or abdominal pain. PLAN: IV furosemide bolus of 120 and start a drip at 10/hr. Will obtain a chest xray Will continue sildenafil 20mg three times a day for history of pulmonary hypertension. Will consultPH team for further recommendations if there needs to be any medication changes Consult hematology for consideration of inpatient bone marrow biopsy and recommendations of transfusion threshold given her myelofibrosis Continue noncardiac home medications of allopurinol, bupropion, danazol, hydroxyurea, morphine sulfate, omeprazole interchanged to pantoprazole, oxycodone, prednisone, and sennosides, Hydroxyzine 50 mg every 6 hours ordered as needed for anxiety Physical and occupational therapy ordered for debility VTE: Heparin SQ 5,000 units TID Tubes/lines: PIV GI: Pantoprazole Code Status: Full Code Disposition: Ella Solis APRN, C.N.P., M.S.N. 07/08/24 I personally spent a total of 90 minutes providing and coordinating care today. PER CASER PER CASER documented in this encounter Consult Notes * Sushila Novak M.S., RDN, LD - 07/15/2024 1:47 PM CSTAssociated Order(s): IP CONSULT TO DIETITIAN Images from the original note were not included. Clinical Nutrition: Follow-up Clinical Nutrition was requested to evaluate patient for nutrition education/counseling Completed visit with patient today as part of face to face care. SUBJECTIVE Ms. Dobbs is a 54 y.o. 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 Nutrition Prior to Admission: Pt did not provide specifics during diet recall attempt. Reports she eats pizza but does not add salt to meals. Weight gain noted over the past 8 months per chart review, though noted patient is admitted for fluid removal. Per H&P, she reported that her dry weight is 248# / 112.5 kg. Current Nutrition: - Pt was NPO this morning for [facility] and she is hopeful for dismissal tomorrow. She was frustrated during visit today d/t being NPO, feeling dry in her room (had her shower running for humidity) and having the pulse oximeter on her finger. Education consult received for weight management. Pt has an appointment scheduled tomorrow in [place] [id number] with outpatient RDN. For now encouraged intakes of balancedmeals and adherence to low sodium diet - did not go into specifics though as pt was not up for it. Provided her with the following handouts to review to help her come up with questions/goals for outpatient appointment. Guidelines for controlling sodium (HA9737) and Eat well: use the plate method ([id number]). Briefly discussed reasoning for sodium restriction. - Of note, pt reports she dislikes the food here and is not eating it. She expressed frustration atautomatic meal system. Reported she is having food brought in from outside the hospital such as salads and yogurt parfaits without the parfait. Food Allergies/Intolerances: None per chart review OBJECTIVE Current nutrition orders: Dietary Orders (From admission, onward) Start Ordered 07/15/24 1237 Adult Diet Regular; 2,000 mg Na; 2000 mL Fluid (Adult Diet) Diet effective now Question Answer Comment Diet texture: Regular Sodium: 2,000 mg Na Fluid total / 24hr: 2000 mL Fluid 07/15/24 1236 Pertinent Labs: Last 3 results Lab Units 07/15/24 0713 07/14/24 0932 07/13/24 0945 SODIUM mmol/L 143 139 138 POTASSIUM mmol/L 4.9 5.0 4.7 CHLORIDE mmol/L 98 95* 94* BUN mg/dL 73* 80* 74* CREATININE mg/dL 1.69* 1.96* 1.98* CALCIUM mg/dL 8.8 8.5* 8.5* MAGNESIUM mg/dL 3.0* 2.9* 2.8* Recent Labs Lab Units 07/09/24 0600 HEMOGLOBIN A1C % 7.4* GI Function:Last BM Date: 07/14/24 (Per patient), [place] Stool Chart: Type 5: Soft blobs with clear-cut edges, Integumentary/Wounds: Cm score score 18 Lines/Drains/Airways Wound Duration Wound Incision Abdomen Right;Upper -- days Scope Sites Abdomen 855 days Medications: Scheduled Meds:allopurinoL, 300 mg, oral, Daily [Held by provider] danazoL, 200 mg, oral, BID hydroxyurea, 500 mg, oral, BID melatonin, 3 mg, oral, Daily at bedtime morphine, 30 mg, oral, BID pantoprazole, 40 mg, oral, Daily before morning meal sildenafil, 20 mg, oral, TID sodium chloride, 3 mL, intravenous, Q12H CODY [START ON 07/16/2024] torsemide, 60 mg, oral, BID before morning and evening meals traZODone, 25 mg, oral, Daily at bedtime Continuous Infusions: PRN Meds:. acetaminophen bisacodyL bisacodyL calcium carbonate hydrOXYzine medical cannabis oxyCODONE polyethylene glycol sennosides sodium chloride sodium chloride Anthropometrics: Height: 171 cm Admission Weight: (!) 140 kg (07/08/2024) Current Weight: 135 kg (07/12/24) BMI (Calculated): 46.3 kg/m?? Weight change since admission: -4.1 kg Net IO Since Admission: -11,501.08 mL [07/15/24 1348] Weight history: 11/04/23-111 kg 03/09/24-114 kg 07/09/24-138 kg ASSESSMENT / PLAN Nutrition Diagnosis: Undesirable food choices related to knowledge deficit as evidenced by patient report that she does not know how much sodium is appropriate in her diet . Ongoing Malnutrition Assessment: Malnutrition Assessment: Malnutrition criteria not met The patient does not meet the ASPEN Criteria of malnutrition based on: Energy Intake: No Change Interpretation of Weight Loss: No Change Body Fat: Normal Muscle Mass: Normal Fluid Accumulation: Moderate-Severe Estimated Needs: Total Calorie Needs: 3085-1093 calories/day Method to Estimate Energy Needs: [place]-St Jeor (Basal to Basal + 20%) Weight Used for Equation Calculations: 113 kg (Patient's reported dry weight per H&P) Total Protein Needs: 93 grams/day (Method to Estimate Protein Needs (g/kg): 1.5 gm/kg) Weight Used to Calculate Protein Needs (Kg): 62.3 kg (IBW) Nutrition Intervention: Interventions: Other (Left Guidelines for controlling sodium booklet at patient's room) Monitoring/Evaluation: Nutrition parameter to monitor: Meals/Supplement Intake, Weight Status, Pertinent Labs, and Ascites/Edema Desired Outcome: Consume adequate nutrition orally Verbalize understanding of current diet recommendations Recommendations: Encourage intakes of balanced meals and adequate protein Maintain outpatient registered dietitian appointment for healthy diet education and weight management (scheduled for 07/16). Clinical Nutrition will continue to follow. For questions about patient's nutritional care please contact pager [phone] on weekdays 07:30-16:00 or [phone] on weekends/holidays ([facility]). PER CASER * Blanca Ballesteros P.T., D.P.T., [facility] - 07/11/2024 10:09 AM CST Physical Therapy Inpatient Evaluation/Treatment SUBJECTIVE Patient's Name: Jennifer Dobbs Referring/Attending Provider: Shital Frank M.D. Reason for Referral: Physical Therapy Evaluate and Treat Pertinent Medical / Surgical History: has a past medical history of Anemia, Anxiety Generalized Disorder, Blood Transfusion No Diagnosis,Leukemia, and Sickness Motion Personal History. has a past surgical history that includes Tonsillectomy; Myringotomy and Tubes - Tonsils and Adenoids; ANGIOGRAM (N/A, 11/07/2021); Nitric Oxide Study (N/A, 11/07/2021); Laparoscopic Splenectomy (N/A, 03/13/2022); Nitric Oxide Study (N/A, 04/27/2024); and ANGIOGRAM (N/A, 04/27/2024). History of Present Illness: Jennifer Dobbs is a 54 y.o. female who was admitted to [facility] in [place] on 07/08/2024 for Hypertension Pulmonary (HCC) [I27.20]. Relevant Medical History: fluid overload Precautions Other Precautions: Respiratory; Cardiac. RST PT/OT Falls screen: Fall in the last 12 months: No Are you fearful of falling: No Pain Assessment: Pain not rated, but present Patient/Caregiver Goals: Decrease pain, Return to home, and Return to prior level of function Subjective Comments: Agreeable to therapy session. 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 Instrumental Activities of Daily Living: Required Assistance: Medication management, Meals/Cooking, Shopping, Groceries, Housekeeping, Laundry, Transportation Functional Mobility: Wheelchair for long distances when in community and their available. Driving: No Occupational Role: Disabled Leisure Interests: Watch TV. OBJECTIVE Vital Signs: Vitals monitored throughout session; within normal ranges. 3-4L NC; spO2: 88% Evaluation Assessments: Strength: Generalized weakness Range of Motion:Not formally assessed but appears within functional limits based on observation Balance: Static Standing: Good (Maintains balance without support) Dynamic Standing: Fair (Maintains balance with handheld assist) Activity Tolerance: Endurance: Tolerates less than 10 minutes of activity Outcome Measures: [facility] Inpatient Short Form: [facility] Basic Mobility (V.2) How much help from another person do you currently need???If the patient hasn't done an activity recently, how much help from another person do you think he/she would needif he/she tried? 1. Turning from your back to your side while in a flat bed without using bedrails?: None 2. Moving from lying on your back to sitting on the side of a flat bed without using bedrails?: None 3. Moving to and from a bed to a chair (including a wheelchair)?: None 4. Standing up from a chair using your arms (e.g., wheelchair, or bedside chair)?: None 5. To walk in hospital room?: A Little 6. Climbing 3-5 steps with a railing?: A Little -[facility] Basic Mobility (V.2) Raw Score: 22 -[facility] Basic Mobility (V.2) Standardized Score: 47.4 Interpretation: Based on scoring guidelines using the raw score value: Those going to home had an average score at or above 18 Those going to facility had an average score at or below 17 Clinicians answer the -[facility] Inpatient Short Form based on observed patient activity and/or clinical judgment (patient can be scored without physically performing each activity) [facility] Highest Level of Mobility: Walk 25 feet or more-7 -M scale is scored based on the highest level of mobility the patient achieves during a sessionof care Therapeutic Interventions: SIT TO STAND: - Assist Level: supervision of 1 - Device: gait belt - Surface: chair - Therapist Delivery: assessed - Assist/Cues Provided: none for STAND TO SIT: - Assist Level: supervision of 1 - Device: gait belt - Surface: chair - Therapist Delivery: assessed - Assist/Cues Provided: none for GAIT: - Distance: [id number] meters - Assist Level:contact guard assistance of 1 - Device: gait belt - Quality: decreased gait speed - Therapist Delivery: assessed and instructed - Assist/Cues Provided:verbal for breathing techniques and pacing - Comments: multiple standing rest breaks taken due to shortness of breath THERAPEUTIC EXERCISE: Standing Therapeutic Exercise: - Side: bilateral lower extremity(ies) - Mode: active range of motion - Exercises: marching - Repetitions: 5 - Assist/cues provided: full range of motion EDUCATION: -Role of PT in acute setting and collaborated with patient and/or family on goals and plan of care. The patient's status was discussed and the following coordination of care occurred with the RN Patient was left in bedside chair at end of session with call light in reach, all needs met and questions answered. Assessment Discharge Therapy Needs - PT: Ongoing skilled physical therapy If skilled therapy is recommended, skilled therapy can include physical therapy provided by home health, outpatient clinic, or a post-acute facility. The location of these services is determined by the patient's care team in partnership with patient/family. Level of Care Needed - PT: Assistance with transfers (Comment), Assistance with walking and moving around the home, Assistance with bed mobility, Assistance with stairs From a physical therapy perspective, the level of care above has been recommended for Ms. Dobbs after hospital discharge. This level of care is based on her functional abilities during today's session. This may change throughout the hospital course and will be updated as appropriate. Clinical Impression: Currently, patient presents with decreased strength, impaired dynamic balance, decreased activity tolerance, and cardiopulmonary impairments resulting in the following impaired gait and impaired ability to complete stairs. Limited by increased work of breathing. Educated on increasing activity as fluid is removed. Physical therapy treatment is medically necessary to restore and maximize function, maximize safetyand facilitate discharge to home, teach and educate the patient and/or caregivers. Recommendations for mobility/activity while hospitalized: gait 3x/day with stand by assist Plan PT Plan Comments: Progression of functional mobility as tolerated. Functional Goals: PT Inpatient Goals PT Goal #1: Patient will demonstrate independent bed mobility and transfers for safe homegoing. PT Goal #2: Patient will demonstrate 50m gait with least restrictive assistive device stand by assistance for safe homegoing. PT Goal #3: Patient will demonstrate 12 stairs with handrail if needed for safe home going. PT Goal #4: Patient will demonstrate home exercise program with minimal cuing for increased lower extremity strengthening. Progress: Improving as expected Jennifer Dobbs has Good rehab potential to meet the expected outcomes in a reasonable period of time. Treatment Plan: Plan: Plan of care initiated PT Inpatient Duration : Until goals are met or hospital discharge Requires Inpatient Follow-Up: Yes PT - Next Inpatient Appointment: 07/12/24 Patient agrees with the plan of care and goals. Treatment interventions may include: Treatment/Interventions: Therapeutic exercise, Therapeutic functional activity, Neuromuscular re-education, Gait training Billing: Tiered PT Evaluation Codes: Comorbid Conditions: Cardiopulmonary disease Personal Factors: Motivation level, Living situation, Sedentary lifestyle Examination elements: 4+ Clinical Presentation: Stable Clinical Decision Making: Low complexity clinical decision making Time Spent with Patient Evaluations PT Eval - Low Complexity: 15 min Therapeutic Interventions Gait Training (min): 10 min Time Tracking Total Timed Units (min): 10 min Total Treatment Time (min): 25 min Blanca Ballesteros P.T., Haydee.P.T., CCS PER CASER PER CASER * Suyapa Conner M.S., RDN, LD - 07/09/2024 12:57 PM CSTAssociated Order(s): IP CONSULT TO DIETITIAN Images from the original note were not included. Clinical Nutrition: Initial Assessment Clinical Nutrition was requested to evaluate patient for positive nursing baseline nutrition screenwith a MST score of 2 or greater Completed visit or chart review today without direct contact with the patient due to patient was unavailable on 2 attempts to visit (working with OT, then declined visit as she was eating lunch with family present). SUBJECTIVE Ms. Dobbs is a 54 y.o. 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 Nutrition Prior to Admission: Unable to acquire. MST score of 99 for unable to assess. Weight gain noted over the past 8 months per chart review, though noted patient is admitted for fluid removal. Per H&P, she reported that her dry weight is 248# / 112.5 kg. Current Nutrition: Variable meal intakes documented so far. Per H&P, patient does endorse somedietary indiscretions as she does not know how much salt she actually should be eating a day so technical report writer left Guidelines for controlling sodium booklet at her room. Percentage of Meals Eaten for the past 72 hrs: Percent Meals Eaten (%) 07/09/24 1236 75 07/09/24 0745 25 07/08/24 1804 100 Food Allergies/Intolerances: None per chart review OBJECTIVE Current nutrition orders: Dietary Orders (From admission, onward) Start Ordered 07/08/24 1629 Adult Diet Regular; 2,000 mg Na; 2000 mL Fluid (Adult Diet) Diet effective now Question Answer Comment Diet texture: Regular Sodium: 2,000 mg Na Fluid total / 24hr: 2000 mL Fluid 07/08/24 1629 Pertinent Labs: Reviewed Latest Reference Range & Units 07/09/24 06:00 Sodium, S 135 - 145 mmol/L 143 Potassium, S 3.6 - 5.2 mmol/L 5.3 (H) Chloride, S 98 - 107 mmol/L 102 Bicarbonate, S 22 - 29 mmol/L 32 (H) Anion Gap 7 - 15 9 BUN (Blood Urea Nitrogen), S 6 - 21 mg/dL 41 (H) Creatinine 0.59 - 1.04 mg/dL 1.30 (H) Estimated GFR (eGFR) >=60 mL/min/BSA 48 (L) Calcium, Total, S 8.6 - 10.0 mg/dL 8.4 (L) Glucose, S 70 - 140 mg/dL 111 Magnesium 1.7 - 2.3 mg/dL 2.5 (H) (H): Data is abnormally high (L): Data is abnormally low GI Function:Last BM Date: 07/08/24 (per patient), , Edema: +3 to lower extremities 07/09 Integumentary/Wounds: Lines/Drains/Airways Wound Duration Wound Incision Abdomen Right;Upper -- days Scope Sites Abdomen 849 days Medications: Reviewed; include chlorothiazide, insulin, Protonix, lasix drip, PRN medical cannabis for pain Anthropometrics: Height: 171 cm Admission Weight: (!) 140 kg (07/08/2024) Current Weight: (!) 138 kg BMI (Calculated): 47.1 kg/m?? Weight change since admission: -1.8 kg Net IO Since Admission: -2,090.83 mL [07/09/24 1257] Weight history: 11/04/23-111 kg 03/09/24-114 kg 07/09/24-138 kg ASSESSMENT / PLAN Nutrition Diagnosis: Undesirable food choices related to knowledge deficit as evidenced by patient report that she does not know how much sodium is appropriate in her diet . Initiated Malnutrition Assessment: Unable to assess Estimated Needs: Total Calorie Needs: 3522-6737 calories/day Method to Estimate Energy Needs: [place]-St Jeor (Basal to Basal + 20%) Weight Used for Equation Calculations: 113 kg (Patient's reported dry weight per H&P) Total Protein Needs: 93 grams/day (Method to Estimate Protein Needs (g/kg): 1.5 gm/kg) Weight Used to Calculate Protein Needs (Kg): 62.3 kg (IBW) Nutrition Intervention: Interventions: Other (Left Guidelines for controlling sodium booklet at patient's room) Monitoring/Evaluation: Nutrition parameter to monitor: Meals/Supplement Intake, Weight Status, Pertinent Labs, and Ascites/Edema Desired Outcome: Consume adequate nutrition orally Recommendations: No changes at this time; continue current nutrition orders Clinical Nutrition will continue to follow. For questions about patient's nutritional care please contact pager [phone] on weekdays 07:30-16:00 or [phone] on weekends/holidays ([facility]). PER CASER * Burak Bradford M.B.B.S. - 07/09/2024 11:03 AM CSTAssociated Order(s): IP CONSULT TO CARDIOLOGY [place], [place] Pulmonary Hypertension Consult SUBJECTIVE REFERRAL Matthew Mayes M.D. [address] [place] [id number] CHIEF COMPLAINT / REASON FOR CONSULT Pulmonary hypertension HISTORY OF PRESENT ILLNESS Ms. Jennifer Dobbs is a 54 y.o. female who is admitted for fluid overload, our team was consulted for management of pulmonary hypertension. She has a past medical history of heart failure with a preserved ejection fraction / high- output cardiac failure (LVEF 64%, 01/2024), severely enlarged right ventricle with severely reduced right ventricular systolic function, severe tricuspid valve regurgitation, obstructive sleep apnea - intolerant to CPAP, pulmonary hypertension (Mixed group 2, 3, 5), diabetes mellitus (A1c 7.4%, 06/2024), medical marijuana use, past smoker (quit 2012), chronic anemiasecondary to myelofibrosis, chronic bone pain - on opioids, morbid obesity, gastroesophageal refluxdisease. She was last seen in Pulmonary hypertension Clinic (Dr. Mayes), on 04/27/2024, when it was reported that she is intolerant to CPAP due to severe nosebleeds. She was continued on sildenafil and torsemide. She was admitted yesterday for shortness of breath and fluid overload over the last month. She called up the clinic yesterday complaining that she has continued to gain weight and lower extremity edema despite using torsemide, and hence was admitted for intravenous diuresis. She reports that she has at least 50 lb above her dry weight. She also reports that she had dyspnea on exertion, limiting her exercise tolerance, as she was now getting short of breath even while walking in the house. She also reports that she has orthopnea, and has been sleeping in a recliner for the last 2 months. She also reports that she is in process of getting home oxygen. She endorses some dietary indiscretions in terms of her salt intake. She denies any chest pain or syncope. Ms. Jennifer Dobbs denies any known history of liver disease, inhaled or intravenous drug use, anorexigen use, venous thromboembolism, intrinsic lung disease. The following portions of the patient's history were reviewed and updated as appropriate: allergies, current medications, family history, medical history, social history, surgical history and problemlist. REVIEW OF SYSTEMS A 10-point review of systems was negative except as noted in the history of present illness. FAMILY HISTORY Denies any known family history of pulmonary hypertension, venous thromboembolism or connective tissue disease. SOCIAL HISTORY Social History Socioeconomic History Marital status: Spouse name: Not on file Number of children: Not on file Years of education: Not on file Highest education level: Not on file Occupational History Not on file Tobacco Use Smoking status: Former Current packs/day: 0.00 Average packs/day: 1 pack/day for 26.0 years (26.0 ttl pk-yrs) Types: Cigarettes Start date: 1986 Quit date: 2012 Years since quittin.9 Passive exposure: Never Smokeless tobacco: Never Tobacco comments: still smokes marijuana Vaping Use Vaping status: never used Substance and Sexual Activity Alcohol use: Yes Comment: occasional Drug use: Yes Types: Marijuana Sexual activity: Defer Other Topics Concern Not on file Social History Narrative Not on file Social Drivers of Health Food Insecurity: No Food Insecurity (07/09/2024) Hunger Vital Sign Worried About Running Out of Food in the Last Year: Never true Ran Out of Food in the Last Year: Never true Transportation Needs: No Transportation Needs (07/09/2024) PRAPARE - Transportation Lack of Transportation (Medical): No Lack of Transportation (Non-Medical): No Intimate Partner Violence: Not At Risk (07/09/2024) Humiliation, Afraid, Rape, and Kick questionnaire Fear of Current or Ex-Partner: No Emotionally Abused: No Physically Abused: No Sexually Abused: No Housing Stability: Low Risk (07/09/2024) Housing Stability Housing: Living Situation: I have a steady place to live OBJECTIVE PHYSICAL EXAM Vitals: 07/09/24 1245 BP: (!) 109/37 Pulse: (!) 113 Resp: 24 Temp: 36.8 ??C SpO2: 93% General: Well appearing. No conversational dyspnea. Eyes: Anicteric sclerae. Vessels: JVP elevated Heart: Regular rate and rhythm. Systolic murmur at apex. Lungs: Bibasilar crackles noted Abdomen: Soft, nontender, nondistended. No hepatosplenomegaly. Extremities: Bilateral 2+ lower extremity pitting edema Skin: No appreciable rashes or lesions STUDIES Labs: Hemoglobin 6.7, platelet count 417 TSH 7.3 BUN/creatinine 41/1.3 NT proBNP 7416 Total cholesterol 93, LDL 54, HDL 17 Hemoglobin A1c 7.4% Iron saturation > 90, Ferritin 7389 Echo: 01/22/2024 1. Severely enlarged right ventricular chamber size, [...] RA pressure. RV strain is significantly lower. 6MWD: 01/21/2024 Total Distance Walked (Feet): 1035 Total Distance Walked (Meters): 315.47 CXR: 07/08/2024 Since 03/16/2022, interval development of mild interlobular septal thickening, increased prominence of the pulmonary vasculature, increased enlargement of the cardiac silhouette size consistent with mild pulmonary edema. New right lower lobe airspace opacity and small right pleural effusion may represent a superimposed infectious/inflammatory process. Linear subsegmental left lower lobe atelectasisor scarring. Elevated right hemidiaphragm. Home sleep apnea test 02/04/2024 Moderate to severe obstructive sleep apnea-hypopnea syndrome resulting in significant oxyhemoglobindesaturation, worse in REM Sleep-related hypoxemia versus hypoventilation VQ scan: 08/01/2021 No evidence of acute or chronic pulmonary embolism on planar perfusion imaging. Right heart catheterization: 04/27/2024 Severely elevated RA mean pressure. Elevated RA [...] in context of severe anemia. Systemic hypoxemia. ASSESSMENT / PLAN Ms. Jennifer Dobbs is a 54 y.o. female who is admitted for fluid overload, our team was consulted for management of pulmonary hypertension. She has a past medical history of heart failure with a preserved ejection fraction / high- output cardiac failure (LVEF 64%, 01/2024), severely enlarged right ventricle with severely reduced right ventricular systolic function, severe tricuspid valve regurgitation, obstructive sleep apnea - intolerant to CPAP, pulmonary hypertension (Mixed group 2, 3, 5), diabetes mellitus (A1c 7.4%, 06/2024), medical marijuana use, past smoker (quit 2012), chronic anemiasecondary to myelofibrosis, chronic bone pain - on opioids, morbid obesity, gastroesophageal refluxdisease. Fluid overload likely secondary to dietary indiscretion, and right heart failure in setting of pulmonary hypertension Pulmonary hypertension (Mixed group 2, 3, 5). NYHA class III Heart failure with a preserved ejection fraction / high-output cardiac failure (LVEF 64%, 01/2024) Severely enlarged right ventricle with severely reduced right ventricular systolic function Severe tricuspid valve regurgitation, likely functional Obstructive sleep apnea - intolerant to CPAP Diabetes mellitus (A1c 7.4%, 06/2024) Chronic non-cardiac: medical marijuana use, past smoker (quit 2012), chronic anemia secondary to myelofibrosis, chronic bone pain - on opioids, morbid obesity, gastroesophageal reflux disease Plan Diuretic: Agree with lasix IV 10 mg/hr, consider additional bolus dose today, target net negative 2to 3 L per day. Closely monitor electrolytes and renal function, keep K>4, and Mg >2. Continue with sildenafil 20 mg oral three times daily for now. If she is hypotensive (BP < 90/60), then can consider decreasing dose of sildenafil to 10. Oxygen supplementation if desaturation noted Agree with blood transfusion while inpatient, consider hematology consult Once she is clinically euvolemic, we would consider repeat right heart catheterization and potentially adding PH medications. Our service will continue to follow up. She would need follow up with pulmonary hypertension clinicon discharge (already has follow up appointment with Dr. Mayes on 07/16/2024, depending on timing of this hospitalization, it would need to be moved). LISA Jaime Fellow - Advanced Heart Failure & Transplant Cardiology Discussed with Dr. Mena Cosigned by Lanette Gomes M.D. at 07/09/2024 3:47 PM WRAPPER CASER PER CASER PER CASER Associated attestation - Lanette Gomes M.D. - 07/09/2024 3:47 PM WRAPPER CASER I saw and evaluated the patient, participating in the roa portions of the service. I reviewed the resident/fellow???s note. I agree with the resident/fellow???s findings and plan. Briefly, Mrs. Dobbs is a 54-year-old female admitted with hypoxic respiratory failure, volume overload and decompensated RV failure in the context of multifactorial pulmonary hypertension. Past medical history notable for myelofibrosis with chronic severe anemia, tricuspid regurgitation, SANDEE intole rant of CPAP, status post splenectomy, obesity (BMI 47). At home recently, she reports functional class 3-4 dyspnea and severe orthopnea. She reports takingher diuretic regimen regularly although sometimes doses are delayed/missed in the setting of appointments. There are also reports of possible recent dietary indiscretions. She was directly admitted from the outpatient setting yesterday. She has been on diuresis with IV furosemide and reports some symptomatic benefit. Currently breathing comfortably and saturating well on 2 L via nasal cannula. # Pulmonary hypertension, multifactorial # Decompensated right-sided heart failure # High output heart failure in setting of anemia # Acute hypoxic respiratory failure # Functional class III-IV # Myelofibrosis with chronic severe anemia # Severe tricuspid regurgitation # Chronic sleep-related breathing disorder and nocturnal hypoxia, intolerant of PAP # Status post splenectomy # Obesity, BMI 47 At this time, agree with current plan to continue IV diuresis. Suspect she has quite a bit of excess volume on board and will continue to experience further benefit with fluid removal. Recommend continuing current PAH therapy with sildenafil but would refrain from initiating additional vasodilators/PH-specific therapy for the time being, particularly given the multifactorial nature of her PH. Pending her clinical course, may consider right heart catheterization next week when she is closer to euvolemia, particularly if there has not been significant clinical improvement. Recommendations: --continue aggressive diuresis --continue sildenafil 20 t.i.d.. If evidence of worsening hypotension, may consider decreasing doseto 10 mg TID. --do not advise initiation of additional PH therapy currently --may consider right heart catheterization next week once approaching euvolemia, particularly if clinical improvement has been limited. --she was scheduled to undergo NM bone scan evaluating for pulmonary extramedullary hematopoiesis this week as an outpatient but suspected she would be unable to lie flat for that. This should be rescheduled on discharge. --of note, she is currently scheduled to follow-up in PH clinic with Dr. Mayes on 07/16. Pending clinical course, this may need to be rescheduled if she remains hospitalized by that time; however, would avoid making appointment changes right now. Further details as per Dr. Bradford. Thank you for involving us in this patient's care. Please contact our service with any questions orconcerns. * Starla Millard M.A., O.T. - 07/09/2024 9:53 AM CST Occupational Therapy [facility] Inpatient Evaluation/Treatment SUBJECTIVE Patient's Name: Jennifer Dobbs Referring/Attending Provider: Shital Frank M.D. Reason for Referral: Occupational Therapy Evaluation and Treatment PERTINENT MEDICAL / SURGICAL HISTORY: Jennifer Dobbs has a past medical history of Anemia, Anxiety Generalized Disorder, Blood Transfusion No Diagnosis, Leukemia, and Sickness Motion Personal History. Jennifer Dobbs has a past surgical history that includes Tonsillectomy; Myringotomy and Tubes - Tonsils and Adenoids; ANGIOGRAM (N/A, 11/07/2021); Nitric Oxide Study (N/A, 11/07/2021); Laparoscopic Splenectomy (N/A, 03/13/2022); Nitric Oxide Study (N/A, 04/27/2024); and ANGIOGRAM (N/A, 04/27/2024). History of Present Illness: Jennifer Dobbs is a 54 y.o. female who was admitted to [facility] in [place] on 07/08/2024 for Hypertension Pulmonary (HCC) [I27.20]. Relevant Medical History: 54 year old female that is being directly admitted for decompensated highoutput heart failure in the setting of pulmonary hypertension and severe tricuspid regurgitation. Precautions Other Precautions: Respiratory; Cardiac. Falls screen: Fall in the last 12 months: No Are you fearful of falling: No Pain Assessment: 6/10 chronic pain. Subjective Comments: Agreeable to therapy session. Patient/Caregiver Goals: Discharge home Home Living and Equipment: Lives with: Spouse/Significant other Receives help from: Spouse/Significant other Type of Home: Apartment Home Layout: One Level Home Access: Stairs to enter: Number of steps: 13, Railing: bilateral handrails Bathroom Accessibility: Bathroom not accessible Shower: Tub/Shower Level: Main Floor Enclosure Type: Curtain Bathroom Equipment: Hand-held shower head Toilet: Standard Toilet Level: Main Floor Toilet Equipment: Vanity next to toilet Assistive Device Owned: No Assistive Device Adaptive Equipment Owned: Senior Peoples[employer] Developer Other DME Owned: Regular recliner (sleeps there) Prior Level of Function and Mobility: Basic Activities of Daily Living: Required Assistance: Grooming, Showering, UB dressing, LB dressing, and Toileting ( has beenhelping for the past few weeks)- Progressively has required more assistance over the past few years. Instrumental Activities of Daily Living: Required Assistance: Medication management, Meals/Cooking, Shopping, Groceries, Housekeeping, Laundry, Transportation Functional Mobility: Wheelchair for long distances when in community and their available. Driving: No Occupational Role: Disabled Leisure Interests: Watch TV. OBJECTIVE Vital Signs: Vitals monitored throughout session; within normal ranges. 2 L NC Evaluation Assessment: STRENGTH: Generalized weakness RANGE OF MOTION: Generalized weakness BALANCE: Static Sitting: Good (Maintains balance without support) Dynamic Sitting: Good (Maintains balance without support) Static Standing: Good (Maintains balance without support) Dynamic Standing: Fair (Maintains balance with handheld assist) ACTIVITY TOLERANCE: Endurance: Tolerates 10-20 minutes of activity Outcome Measures: [facility] Inpatient Short Form: Putting on and taking off regular lower body clothing?: A lot Putting on and taking off regular upper body clothing?: A Little Taking care of personal grooming such as brushing teeth?: None Bathing (including washing, rinsing, drying)?: A Little Toileting, which includes using toilet, bedpan, or urinal?: A Little Eating meals?: None Daily Activities Raw Score (max 24): 19 Daily Activities Standardized Score: 40.22 Interpretation: Based on scoring guidelines using the raw score value: Those going to home had an average score at or above 18 Those going to facility had an average score at or below 17 Clinicians answer the [facility] Inpatient Short Form based on observed patient activity and/or clinical judgment (patient can be scored without physically performing each activity). Cognition: Will further assess and monitor as warranted Therapeutic Interventions: FUNCTIONAL TRANSFERS: SIT<>STAND - Assist Level: supervision/set-up - Device: IV pole and gait belt - Surface: chair, toilet - Therapist Delivery: assessed, assisted, facilitated, instructed - Assist/Cues Provided: verbal for technique - # of reps: 2 TOILET TRANSFER - Assist Level: supervision/set-up - Device: IV pole and gait belt - Approach: to and from, ambulating - Surface: toilet - Therapist Delivery: assessed, assisted, facilitated, instructed - Assist/Cues Provided: verbal for technique - Adaptive Equipment: grab bars FUNCTIONAL MOBILITY: In-room mobility performed with supervision/stand by assistance and IV pole and gait belt. Education/Training Provided: Provided education on role of occupational therapy in the acute setting. Collaborated with patient and/or family on goals and plan of care. Activity Recommendations During Hospitalization: Educated patient and/or caregiver on the importance of activity and mobility to improve pulmonary function/hygiene, activity tolerance, strength, and overall well-being while in hospital. - Eat ALL meals in chair - Ambulate/transfer into chair 3-5x/day - Active engagement in daily self-care routine (hygiene and grooming, etc.) - Complete frequent oral cares, brushing teeth up to 4x per day is recommended to prevent hospital acquired pneumonia - Active engagement in leisure tasks as appropriate/safe (reading, music, games/cards, etc.) Team Communication: The patient's status was discussed and coordination of care occurred with RN, PT Patient was left in bedside chair at end of session with call light in reach, all needs met and questions answered. Assessment Discharge Therapy Needs - OT: Ongoing skilled occupational therapy (Pending hospital course) If skilled therapy is recommended, skilled therapy can include occupational therapy provided in home health, outpatient or post-acute facility. The location of these services is determined by patient's care team in partnership with patient/family. Level of Care Needed - OT: Assistance with toileting, Assistance with showering/bathing, Assistancewith dressing, Assistance with meal preparation, Assistance with transportation, Assistance with housekeeping, Assistance with shopping Barriers to Discharge Home: Current functional status Clinical Impression: Currently, patient presents with impairments including pain, decreased strength, impaired balance, decreased activity tolerance, and cardiopulmonary impairments resulting in functional deficits including impaired functional mobility and decreased independence with self care tasks. At baseline, patient lives with her spouse who is her caregiver. She reports not using a gait aid, but does utilize wheelchairs when they are available in the community. Today, patient engaged in toileting transfer and in-room mobility with grossly supervision using IV pole for stability per patient's request on 2 LNC. Patient expresses a progressive decline in function and would benefit from further skilled therapy to optimize her independence and safety with activities of daily living. The patient will benefit from ongoing occupational therapy services while hospitalized in order to improve engagement and independence in meaningful occupations. In-Hospital Activity and Mobility Recommendations: - Transfer into chair 3x/day with assist x 1. - Recommend position changes every 2 hours - Ambulate to bathroom for toileting - Eat ALL meals in chair - Active engagement in daily self-care routine (oral cares, face washing, combing hair) Plan OT Plan Comments: Next session: Assess standing grooming, toileting aspects, bring ADL bag and educate on adaptive equipment to reduce caregiver burden, review goals with patient as her primarly assists with majority of ADL's. Functional Goals: OT Goal #1: Patient will complete toileting with modified independence in order to promote return to prior level of function. OT Goal #2: Patient will complete standing grooming with modified independence to promote return toprior level of function. OT Goal #3: Patient will complete full body dressing with minimal assistance to promote return to prior level of function. OT Goal #4: Patient will express understanding activity modifications and equipment recommendationsabout independence and safety at dismissal Rehab potential: Ms. Dobbs has good potential to achieve established occupational therapy goals within the time frame outlined below. OT Frequency: OT Amount: 1 visit per day OT Frequency: 5 times per week OT Inpatient Duration : Until goals are met or hospital discharge Requires Inpatient OT Follow-Up: Yes OT - Next Inpatient Appointment: 07/12/24 Plan: Plan of care initiated Treatment interventions may include: Treatment Interventions: Therapeutic exercise, Therapeutic functional activity, Self-care/home management Occupational Therapy Attestation Statement: Patient agrees with the plan of care and goals. Billing: Tiered OT Evaluation Codes: Comorbid Conditions: Mental health disorder, Cancer Occupational Profile and History review: Expanded Performance Deficits: 3 - 5 performance deficits Evaluation Complexity: Moderate Time Spent with Patient Evaluations OT Eval - Mod Complexity: 14 min Therapeutic Interventions Home Management Training (min): 9 min Time Tracking Total Timed Units (min): 9 min Total Treatment Time (min): 23 min Starla Millard M.A., O.T. PER CASER * Sonia Amaro R.N. - 07/09/2024 9:23 AM CSTAssociated Order(s): IP CONSULT TO CARE MANAGEMENT Discharge Planning Assessment SUBJECTIVE Assessment Information Referral Data Referral Source: Early Screen for Discharge Planning Referral Name: ESDP 10 Referral Reason: Discharge Planning Previous Assessment: No Primary Language: B[place] Person(s) Present During Interview: patient History of Present Illness #1 Pancytopenia (HCC) #2 Regurgitation Tricuspid #3 Fluid Overload Unspecified #4 Hyperphosphatemia #5 Myelofibrosis Primary (HCC) #6 Splenomegaly Acquired #7 Anxiety #8 Insomnia #9 Failure Heart Right (HCC) #10 Edema #11 Gastroesophageal Reflux Disease #12 Hypertension Pulmonary (HCC) #13 Anemia Of Chronic Disease #14 Chronic Pain Syndrome #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) #16 Myelofibrosis (HCC) Social History Support System: spouse and friends/neighbors Primary Caregiver: self and spouse Social Drivers of Health with Concerns Transportation Needs: Not on file Housing Stability: Not on file Food Insecurity: Not on file Utilities: Not on file Intimate Partner Violence: Not on file OBJECTIVE Finance/Insurance Primary insurance: MEDICARE A AND B Secondary insurance: [employer] benefits: No Advance Directives Legal Decision Maker: Self Advance Directives Status: None on file Baseline Functional Status Baseline Activities of Daily Living Mobility: Independent Dressing: Needs assistance Feeding: Independent Bathing: Needs assistance Grooming: Independent Toileting: Needs assistance Behavior: Appropriate, Pleasant, Cooperative, Oriented Communication: Can write, Talks, Understands speaking, Understands [place] Shopping: Needs assistance Medication Management: Needs assistance Who is managing your medication at home?: Spouse/Partner Housekeeping: Needs assistance Meal Prep: Needs assistance Assistive Devices: Eyeglasses Transportation: Support from family Baseline Services/Resources Primary care clinic and provider: No care count team member to display Additional Resources: Additional Services: NA Anticipated Needs Functional Status: Bathing, Dressing, Mobility Assistive Devices: Grab bars - wall, Oxygen, Tub/shower chair/bench Anticipated Modifications to the Patient's Home: None Transportation Needs: Support from family Does the patient need discharge transport arranged?: No Anticipated Discharge Destination: Home or Self Care Referrals Initiated: None press reader provided Care Management Brochure ([id number]) and information regarding the dismissal process. ASSESSMENT / PLAN ASSESSMENT: The press reader met with Jennifer Dobbs to discuss her current hospitalization and home going needs. The patient was unaccompanied. The patient was a reliable historian. The role of press reader was reviewed. The patient reviewed her prior level of care and support system. The patient receives support from her and friend . Jennifer resides with spouse/significant other in a apartment on 2nd level. She has one flight of stairs, no elevator. Housekeeping, grocery shopping, meal prep, and other household responsibilities have previously been completed by patient and patient's . Met with patient in room and discussed Security Agent role. Patient states she lives with her husbandin an apartment. She is on the second floor with no elevator and she is able to climb the stairs with difficulty. She has been retaining more fluid over the last few weeks and is not able to do ADL's independently as before. She has support from her Gian. She states she has been unable to lie down so she sleeps in a chair. She states she would benefit from a shower chair and grab bars inher bathroom. Security Agent discussed options for home health care and she is open to this. PT/OT are going to assess her and Security Agent will continue to follow and provide resources. Qualifications for home care were discussed. Potential skilled needs are general nursing assessmentand PT/OT. Patient is homebound so would qualify for home care services. The patient's potential needs at dismissal based on their home setting, previous needs and responsibilities, homebound status, and relevant assessments were discussed. The patient may be safe and supported to discharge home with spouse/S.O. when medically ready. Support will be provided by joy Springer. press reader recommendations include: home health services. Pending hospital course and medical readiness, no barriers to dismissal have been identified at this time. The following hospital-based consult orders and/or referrals placed or requested: None. PLAN: The patient agrees with the following plan. Patient's Anticipated Discharge Destination: Home or Self Care TBD-will have PT/OT consult. Poss. [facility] Transportation upon dismissal will be provided by family-- Gian . press reader encouraged the patient to reach out with any questions/concerns. Care Management will follow up with the patient and patient's to provide a list of available home healthcare options in the geographic area where the patient's resides and/or requests. [Disclaimers: If applicable, financial disclosures will be provided informing the patient of any ownership and financial relationships. Current insurance coverage will be reviewed with the patient in order to provide in-network options as appropriate.] A progress note with updates and/or transition plan to come. Signed by: Ivanna Amaro R.N. 07/09/2024 PER CASER documented in this encounter Nursing Notes * Margy Luna R.N. - 07/16/2024 7:30 AM CST Proactive Integration of Mental Health Care in Cardiovascular Disease Screening Note Jennifer Dobbs's chart was screened by a member of the Psychiatry Proactive Consultation based on their history and/or current presentation. Jennifer Dobbs is noted to have the following risk factors: Psychiatric Diagnoses (past 5 years): Generalized anxiety disorder Other diagnosis Behaviors: None Psychiatric History (past 10 years): None Psychotropic Medication Use (past 5 years): Antidepressants Anxiolytics Sedatives/Hypnotics Psychosocial Barriers: None Psychiatry Active Problems: None CURRENT MEDICATIONS I have reviewed the patient's current scheduled and PRN medications. Scheduled Meds: allopurinoL, 300 mg, oral, Daily [Held by provider] danazoL, 200 mg, oral, BID heparin (porcine), 7,500 Units, subcutaneous, Q8H CODY hydroxyurea, 500 mg, oral, BID melatonin, 3 mg, oral, Daily at bedtime morphine, 30 mg, oral, BID pantoprazole, 40 mg, oral, Daily before morning meal sildenafil, 20 mg, oral, TID sodium chloride, 3 mL, intravenous, Q12H CODY torsemide, 60 mg, oral, BID before morning and evening meals traZODone, 25 mg, oral, Daily at bedtime Continuous Infusions: PRN Meds: acetaminophen bisacodyL bisacodyL calcium carbonate hydrOXYzine medical cannabis oxyCODONE polyethylene glycol sennosides sodium chloride sodium chloride Based on screening, we have the following recommendations: [] salsa dance instructor visit [x] Discuss with primary team (nursing) to better understand needs. [] Nursing to nursing support - preventive measures and management (e.g., delirium, suicide) [] Full Psychiatry Consultation - primary team to place order [] Recommend social work consultation - primary team to place order [] Recommend pet/music therapy consultation - primary nursing to place order [] Recommend OT consultation for coping skill education/support-primary team to place order [] Recommend Mailroom Manager Services consultation- primary nursing to place order [] Recommend social work/substance use consultation -primary team to place order [] Recommend outpatient psychiatric follow-up - primary team to place psychiatric consult order to coordinate [x] No acute psychiatric intervention needed; please reach out if questions or concerns. [] Other [place] [phone] with questions. Carmen Luna R.N. 07/16/2024 Cosigned by Sushila Bateman M.D. at 07/16/2024 2:11 PM WRAPPER CASER PER CASER PER CASER Associated attestation - Sushila Bateman M.D. - 07/16/2024 2:11 PM WRAPPER CASER Ms. Dobbs is a 54 y.o. female who was admitted on 07/08/2024 for Hypertension Pulmonary (HCC) [I27.20]. A member of the proactive Consultation-Liaison Psychiatry team (Margy Luna RN) screened the contents of the electronic medical record of Ms. Dobbs using a standardized process to identify potential behavioral morbidity, and I had an opportunity to review the contents of the electronic medical record and discuss the case with Margy Luna RN, but did not personally examine Ms. Dobbs. Sushila Moore M.D. * Monserrat Wayne R.N., [facility] - 07/13/2024 5:42 AM CST Shift Goals: Clinical Goals for the Shift: Patient will diurese and have sleep tonight. Identify possible barriers to meeting goals/advancing plan of care: None End of Shift Summary: Patient's BP runs between 101/46-102/49 mmHg. O2 at 3 LPM tonight with saturation 90-92%. With ongoing lasix as ordered. Voiding adequately. No other events on this shift. BP (!) 101/46 (BP Location: Left arm;Upper, Patient Position: Sitting) Pulse 91 Temp 37.4 ??C (Oral) Resp 19 Ht 171 cm Wt (!) 137 kg SpO2 (!) 89% BMI 46.71 kg/m?? Intake/Output Summary (Last 24 hours) at 07/13/2024 0543 Last data filed at 07/12/2024 2136 Gross per 24 hour Intake 1192.15 ml Output 2875 ml Net -1682.85 ml Problem: PAIN - ADULT Goal: PT VERBALIZES/DEMONSTRATES ADEQUATE COMFORT LEVEL OR BASELINE Outcome: Progressing Problem: KNOWLEDGE DEFICIT Goal: Patient/family/caregiver demonstrates understanding of disease process, treatment plan, medications, and discharge instructions Outcome: Progressing Problem: INFECTION - ADULT Goal: Absence of infection during hospitalization Outcome: Progressing Problem: SKIN/TISSUE INTEGRITY Goal: Skin/Tissue integrity maintained or improved Outcome: Progressing Goal: Oral and Nasal mucous membranes remain intact Outcome: Progressing Problem: SAFETY ADULT Goal: Maintain a safe environment Outcome: Progressing Problem: DISCHARGE PLANNING Goal: Patient discharge needs identified Outcome: Progressing Problem: POTENTIAL OR ACTUAL PRESSURE INJURY-ADULT Goal: Manage sensory Perception deficits to maintain and/or improve skin integrity Outcome: Progressing Goal: Maintain optimal skin moisture to ensure or improve skin integrity Outcome: Progressing Goal: Achieve optimal activity and/or mobility to maintain or improve skin integrity Outcome: Progressing Goal: Nutrient intake appropriate for improving, restoring or maintaining skin integrity Outcome: Progressing Goal: Minimize friction and/or shear to maintain or improve skin integrity Outcome: Progressing Problem: Compromised Skin Integrity Goal: Skin/Tissue integrity maintained or improved Outcome: Progressing Goal: Oral and Nasal mucous membranes remain intact Outcome: Progressing Goal: Incisions, wounds, or drain sites healing without S/S of infection Outcome: Progressing Problem: Incontinence and/or Moisture Goal: Skin integrity is maintained or improved Outcome: Progressing Problem: SAFETY ADULT - RISK FOR FALL AND OR FALL INJURY Goal: Patient remains free from fall/fall injury Outcome: Progressing PER CASER documented in this encounter Miscellaneous Notes * Hospital Course - Jolene aVrgas APRN, C.N.P. - 07/08/2024 6:05 PM WRAPPER CASER Mrs. Dobbs is 54year old female who was directly admitted on 07/08/2024 for decompensated heart failure in the setting of pulmonary hypertension. She has medical comorbidities that include but are not limited to primary myelofibrosis, s/p multiple ELSI inhibitors, two clinical trials, and splenectomy in 02/2022, transfusion-dependent anemia, pulmonary arterial hypertension likely group 1 vs group5 with myelofibrosis, severe TR, chronic bone pain treated with narcotics, and sleep disordered breathing untreated due to epistaxis with CPAP. Briefly, patient has been seen by Dr. Mayes in the Pulmonary hypertension Clinic since 11/2022. In07/2023 patient was initiated on sildenafil for medical management. Patient was again seen on 01/2024 and 04/2024 and was noted to have increased volume retention. During 04/2024 Dr. Mayes offered admission to assist in expediting fluid removal but patent declined. On day of admission patient contacted Dr. Mayes reporting ongoing weight gain and increased dyspnea. Dr. Mayes recommended admission to Cardiology. On arrival to PCU, patient was grossly volume overloaded so diuresis was pursued with furosemide drip and intermittent boluses of furosemide and chlorothiazide. With more aggressive diuresis, she developed acute kidney injury requiring us to hold diuretics. Renal function improved and torsemide wasresumed at an increased dose. Weight on the day of dismissal was 136 kg. Pulmonary Hypertension team follow during hospitalization. Patient remained on home sildenafil for pulmonary hypertension. No further therapy was added. She proceeded for right heart catheterization on 07/15/2023 which demonstrated normalization of left-sided pressures after diuresis. She continuedto have significant pulmonary hypertension. Cardiac index was noted to be elevated in the setting of anemia. For management of primary myelofibrosis, Hematology was curbsided and recommended continuing current therapy, maintaining hemoglobin >7.5, and no bone marrow biopsy. Patient's anemia in the setting of myelofibrosis was managed with weekly packed RBC transfusions on 07/09/24 and 07/13/24. Hydroxyurea was continued for management leukocytosis and thrombocytosis. Patient refused home danazol and after discussion with Hematology, was ultimately discontinued. On 07/09/24 patient was found to have an elevated hemoglobin A1c of 7.4%. DCS was consulted and placed patient on mild correction scale insulin and checked glucoses 4 times daily which was later discontinued due to normal sugars. Ultimately they felt HgA1C was falsely elevated in the setting of splenectomy and anemia requiring blood transfusion so they ultimately recommended monitoring in the outpatient setting. Patient was noted to have intermittent delirium and slightly elevated temperatures, but remained afebrile. Infectious workup was pursued with respiratory swab which was negative, blood cultures were obtained which revealed no growth. Overnight oximetry testing was obtained prior to discharge and demonstrated oxygen in need of 3 L during sleep, 2 L while awake at rest and 4 L with activity. Oxygen prescriptions were updated. Patient was discharged in stable condition to home on 07/16/24. PER CASER PER CASER PER CASER PER CASER PER CASER PER CASER PER CASER PER CASER PER CASER PER CASER PER CASER PER CASER PER CASER PER CASER PER CASER PER CASER PER CASER documented in this encounter Plan of Treatment Upcoming Encounters Date Type Department Care Team (Late st Contact Info) Description 08/10/2024 8:30 AM WRAPPER CASER Telemedicine Division of Hematology in [address] [phone] Isidro Zamarripa M.B., B.Ch. [address] [place] [phone] 08/26/2024 8:30 AM WRAPPER CASER Appointment Department of Laboratory Medicine and Pathology, [facility] in [address] [phone] Matthew Mayes M.D. [address] [place] [phone] 08/26/2024 9:00 AM WRAPPER CASER Appointment Department of Cardiac Rehabilitation in [place], [place] [address] [place] [phone] Matthew Mayes M.D. [address] [place] [phone] 08/26/2024 11:00 AM WRAPPER CASER Clinical Support Department of Nutrition and Diabetes Education in [address] [phone] Matthew Mayes M.D. [address] [place] [phone] Karmen Zambrano, EVIEN, LD [address] [place] [phone] 08/27/2024 10:30 AM WRAPPER CASER Office Visit Department of Cardiovascular Medicine in [place], [place] [address] [place] [phone] Matthew Mayes M.D. [address] [place] [phone] 09/14/2024 12:00 PM WRAPPER CASER Appointment Department of Laboratory Medicine and Pathology, [facility] in [place], [place] [address] [place] [phone] Janusz Govea M.B.B.S. [address] [place] [phone] 09/14/2024 2:00 PM WRAPPER CASER Office Visit Division of Hematology in [place], [place] [address] [place] [phone] Janusz Govea M.B.B.S. [address] [place] [phone] Pending Results Name Type Priority Associated Diagnoses Date /Time Prepare Red Blood Cells, 1 Units Blood Bank Routine 07/09/2024 5:55 AM WRAPPER CASER Prepare Red Blood Cells, 1 Units Blood Bank Routine 07/09/2024 5:55 AM WRAPPER CASER documented as of this encounter Procedures Procedure Name Priority Date/Time Associated Diagnosis Comments CBC WITHOUT DIFFERENTIAL, B Routine 07/16/2024 10:11 AM WRAPPER CASER MAGNESIUM, S Routine 07/16/2024 10:10 AM WRAPPER CASER BASIC METABOLIC PANEL, S/P Routine 07/16/2024 10:10 AM WRAPPER CASER NOCTURNAL OXYGEN STUDY - RT Routine 07/15/2024 2:38 PM WRAPPER CASER RT TO ARRANGE FOR HOME DME Routine 07/15/2024 2:38 PM WRAPPER CASER CARDIAC CATHETERIZATION Routine 07/15/2024 11:51 AM WRAPPER CASER Hypertension Pulmonary (HCC) Dyspnea On Exertion CARDIAC CATHETERIZATION Routine 07/15/2024 11:51 AM WRAPPER CASER Hypertension Pulmonary (HCC) Dyspnea On Exertion ECHO - INTRAPROCEDURAL IMAGES ONLY Routine 07/15/2024 11:44 AM WRAPPER CASER Failure Heart Right (HCC) ADULT OXYGEN THERAPY Routine 07/15/2024 8:01 AM WRAPPER CASER MAGNESIUM, S Routine 07/15/2024 7:13 AM WRAPPER CASER BASIC METABOLIC PANEL, S/P Routine 07/15/2024 7:13 AM WRAPPER CASER CBC WITHOUT DIFFERENTIAL, B Routine 07/15/2024 7:12 AM WRAPPER CASER ADULT OXYGEN THERAPY Routine 07/14/2024 8:00 PM WRAPPER CASER CBC WITHOUT DIFFERENTIAL, B Routine 07/14/2024 9:32 AM WRAPPER CASER CBC WITHOUT DIFFERENTIAL, B Routine 07/14/2024 9:32 AM WRAPPER CASER MAGNESIUM, S Routine 07/14/2024 9:32 AM WRAPPER CASER BASIC METABOLIC PANEL, S/P Routine 07/14/2024 9:32 AM WRAPPER CASER ADULT OXYGEN THERAPY Routine 07/14/2024 8:00 AM WRAPPER CASER ADULT OXYGEN THERAPY Routine 07/13/2024 8:01 PM WRAPPER CASER CBC WITHOUT DIFFERENTIAL, B Routine 07/13/2024 9:45 AM WRAPPER CASER MAGNESIUM, S Routine 07/13/2024 9:45 AM WRAPPER CASER BASIC METABOLIC PANEL, S/P Routine 07/13/2024 9:45 AM WRAPPER CASER TYPE AND SCREEN Routine 07/13/2024 9:44 AM WRAPPER CASER ADULT OXYGEN THERAPY Routine 07/13/2024 8:01 AM WRAPPER CASER ADULT OXYGEN THERAPY Routine 07/12/2024 8:01 PM WRAPPER CASER BASIC METABOLIC PANEL, S/P Timed 07/12/2024 5:11 PM WRAPPER CASER CBC WITHOUT DIFFERENTIAL, B Timed 07/12/2024 5:10 PM WRAPPER CASER TRANSFUSE RED BLOOD CELLS Routine 07/12/2024 1:01 PM WRAPPER CASER INFLUENZA A, B, RSV, PCR, RAPID, V Routine 07/12/2024 12:28 PM WRAPPER CASER SARS CORONAVIRUS 2, PCR RAPID, V Routine 07/12/2024 12:28 PM WRAPPER CASER GLUCOSE POCT, B Routine 07/12/2024 12:07 PM WRAPPER CASER BACTERIA / RONIT CULTURE, BLOOD Routine 07/12/2024 12:01 PM WRAPPER CASER BACTERIA / RONIT CULTURE, BLOOD Routine 07/12/2024 11:57 AM WR[facility]PER CASER ADULT OXYGEN THERAPY Routine 07/12/2024 8:01 AM WRAPPER CASER ECG Routine 07/12/2024 6:37 AM WRAPPER CASER GLUCOSE POCT, B Routine 07/12/2024 6:30 AM WRAPPER CASER LACTATE, B/P STAT 07/12/2024 5:02 AM WRAPPER CASER CBC WITHOUT DIFFERENTIAL, B Routine 07/12/2024 4:52 AM WRAPPER CASER MAGNESIUM, S Routine 07/12/2024 4:52 AM WRAPPER CASER BASIC METABOLIC PANEL, S/P Routine 07/12/2024 4:52 AM WRAPPER CASER GLUCOSE POCT, B Routine 07/11/2024 9:17 PM WR[employer]PER [facility]ER ADULT OXYGEN THERAPY Routine 07/11/2024 8:00 PM WRAPPER CASER GLUCOSE POCT, B Routine 07/11/2024 4:37 PM WRAPPER CASER GLUCOSE POCT, B Routine 07/11/2024 11:37 AM WRAPPER CASER CBC WITHOUT DIFFERENTIAL, B Routine 07/11/2024 9:10 AM WRAPPER CASER MAGNESIUM, S Routine 07/11/2024 9:10 AM WRAPPER CASER BASIC METABOLIC PANEL, S/P Routine 07/11/2024 9:10 AM [facility]PER CASER ADULT OXYGEN THERAPY Routine 07/11/2024 8:00 AM WRAPPER CASER GLUCOSE POCT, B Routine 07/11/2024 6:22 AM WRAPPER CASER GLUCOSE POCT, B Routine 07/10/2024 10:21 PM WRAPPER CASER GLUCOSE POCT, B Routine 07/10/2024 9:53 PM WRAPPER CASER ECG Routine 07/10/2024 8:40 PM [facility]PER CASER ADULT OXYGEN THERAPY Routine 07/10/2024 8:00 PM WRAPPER CASER GLUCOSE POCT, B Routine 07/10/2024 4:32 PM WRAPPER CASER BASIC METABOLIC PANEL, S/P Timed 07/10/2024 3:27 PM WRAPPER CASER GLUCOSE POCT, B Routine 07/10/2024 11:54 AM WR[facility]PER [facility]ER ADULT OXYGEN THERAPY Routine 07/10/2024 8:00 AM WRAPPER CASER CBC WITHOUT DIFFERENTIAL, B Routine 07/10/2024 5:45 AM WRAPPER CASER MAGNESIUM, S Routine 07/10/2024 5:45 AM WRAPPER CASER BASIC METABOLIC PANEL, S/P Routine 07/10/2024 5:45 AM WRAPPER CASER GLUCOSE POCT, B Routine 07/10/2024 5:43 AM WRAPPER CASER GLUCOSE POCT, B Routine 07/09/2024 9:07 PM [facility]PER [facility]ER ADULT OXYGEN THERAPY Routine 07/09/2024 8:00 PM WRAPPER [facility]ER GLUCOSE POCT, B Routine 07/09/2024 5:12 PM WRAPPER CASER CBC WITHOUT DIFFERENTIAL, B Timed 07/09/2024 3:58 PM WRAPPER CASER BASIC METABOLIC PANEL, S/P Timed 07/09/2024 3:58 PM WRAPPER CASER TRANSFUSE RED BLOOD CELLS Routine 07/09/2024 1:36 PM WRAPPER CASER GLUCOSE POCT, B Routine 07/09/2024 12:03 PM WRAPPER CASER (TTE) 2D ECHO DOPPLER COLOR Routine 07/09/2024 11:37 AM WRAPPER CASER ADULT OXYGEN THERAPY Routine 07/09/2024 8:01 AM WRAPPER CASER LIPID PANEL, S Routine 07/09/2024 6:00 AM WRAPPER CASER SPSMA RESULT Routine 07/09/2024 6:00 AM WRAPPER CASER CBC WITH DIFFERENTIAL, B Routine 07/09/2024 6:00 AM WRAPPER CASER THYROID-STIMULATING HORMONE-SENSITIVE (S-TSH) Routine 07/09/2024 6:00 AM WRAPPER CASER MAGNESIUM, S Routine 07/09/2024 6:00 AM WRAPPER CASER HEMOGLOBIN A1C, B Routine 07/09/2024 6:0 0 AM WRAPPER CASER COMPREHENSIVE METABOLIC PANEL, S/P Routine 07/09/2024 6:00 AM WR[employer]PER CASER THYROPEROXIDASE (TPO) ABS, S Routine 07/09/2024 5:55 AM WRAPPER CASER FRUCTOSAMINE, S/P Routine 07/09/2024 5:5 5 AM WRAPPER CASER PREPARE RED BLOOD CELLS Routine 07/09/2024 5:55 AM WR[employer]PER CASER PREPARE RED BLOOD CELLS Routine 07/09/2024 5:55 AM WRAPPER CASER TYPE AND SCREEN Routine 07/09/2024 5:55 AM WRAPPER CASER T3 (TRIIODOTHYRONINE), TOT, S Routine 07/09/2024 5:55 AM WRAPPER CASER T4 (THYROXINE), FREE, S Routine 07/09/2024 5:55 AM WR[facility]PER CASER ADULT OXYGEN THERAPY Routine 07/08/2024 8:00 PM WRAPPER CASER DX CHEST AP OR PA AND LATERAL 2 VIEWS RAD - Routine (most inpatients and all outpatients) 07/08/2024 6:30 PM WRAPPER CASER NT-PRO B-TYPE NATRIURETIC PEPTIDE (BNP), S Routine 07/08/2024 5:20 PM WRAPPER CASER CBC WITHOUT DIFFERENTIAL, B Routine 07/08/2024 5:20 PM WRAPPER CASER MAGNESIUM, S Routine 07/08/2024 5:20 PM WRAPPER CASER COMPREHENSIVE METABOLIC PANEL, S/P Routine 07/08/2024 5:20 PM [facility]PER CASER ADULT OXYGEN THERAPY Routine 07/08/2024 4:29 PM [facility]PER [facility]ER ADULT OXYGEN THERAPY Routine 07/08/2024 4:29 PM [facility]PER [facility]ER ADULT OXYGEN THERAPY Routine 07/08/2024 4:29 PM WRAPPER CASER documented in this encounter Results * (ABNORMAL) CBC without Differential (07/16/2024 10:11 AM WRAPPER CASER) [facility] Hemoglobin 7.2(L) 11.6 - 15.0 g/dL 07/16/2024 10:48 AM WRAPPER CASER DTL Hematocrit 23.5(L) 35.5 - 44.9 % 07/16/2024 10:48 AM WRAPPER CASER DTL Erythrocytes 2.45(L) 3.92 - 5.13 x10(12)/L 07/16/2024 10:48 AM WRAPPER CASER DTL MCV 95.9 78.2 - 97.9 fL 07/16/2024 10:48 AM WRAPPER CASER DTL RBC Distrib Width 21.4(H) 12.2 - 16.1 % 07/16/2024 10:48 AM WRAPPER CASER DTL Platelet Count 306 157 - 371 x10(9)/L 07/16/2024 10:48 AM WRAPPER CASER DTL Leukocytes 24.5(H) 3.4 - 9.6 x10(9)/L 07/16/2024 11:26 AM WRAPPER CASER DTL Comment:Corrected for normob lasts. Blood (Blood, Venous) 07/16/2024 10:11 AM WRAPPER CASER 07/16/2024 10:41 AM WRAPPER CASER Claudia Andrews APRN, C.N.P., D.N.P. LAB BLOOD A DD-ON Final Result Performing Organization Address [facility] Co de Phone Number [facility] [address] [facility] 200 [place] [address] * (ABNORMAL) Magnesium (07/16/2024 10:10 AM WRAPPER CASER) Magnesium, S 2.9(H) 1.7 - 2.3 mg/dL 07/16/2024 11:17 AM WRAPPER CASER DTL Blood (Blood, Venous) 07/16/2024 10:10 AM WRAPPER CASER 07/16/2024 10:57 AM WRAPPER CASER Claudia Andrews APRN, C.N.P., D.N.P. LAB BLOOD A DD-ON Final Result Performing Organization Address [facility] Co de Phone Number [facility] [address] [place] [address] * (ABNORMAL) Basic Metabolic Panel (07/16/2024 10:10 AM WRAPPER CASER) Potassium, S 4.6 3.6 - 5.2 mmol/L 07/16/2024 11:17 AM WRAPPER CASER DTL Sodium, S 142 135 - 145 mmol/L 07/16/2024 11:17 AM WRAPPER CASER DTL Chloride, S 97(L) 98 - 107 mmol/L 07/16/2024 11:17 AM WRAPPER CASER DTL Bicarbonate, S 34(H) 22 - 29 mmol/L 07/16/2024 11:17 AM WRAPPER CASER DTL Anion Gap 11 7 - 15 07/16/2024 11:17 AM WRAPPER CASER DTL BUN (Blood Urea Nitrogen), S 70(H) 6 - 21 mg/dL 07/16/2024 11:17 AM WRAPPER CASER DTL Creatinine 1.65(H) 0.59 - 1.04 mg/dL 07/16/2024 11:17 AM WRAPPER CASER DTL Estimated GFR (eGFR) 36(L) >=60 mL/min/BSA 07/16/2024 11:17 AM WRAPPER CASER DTL Comment: Estimated GFR calculated using the 2020 CKD_EPI creatinine equation. Calcium, Total, S 8.8 8.6 - 10.0 mg/dL 07/16/2024 11:17 AM WRAPPER CASER DTL Glucose, S 152(H) 70 - 140 mg/dL 07/16/2024 11:17 AM WRAPPER CASER DTL Blood (Blood, Venous) 07/16/2024 10:10 AM WRAPPER CASER 07/16/2024 10:57 AM WRAPPER CASER Claudia Andrews APRN, C.N.P., D.N.P. LAB BLOOD A DD-ON Final Result [facility] 200 [place] [address], [facility] 200 [place] [address] * RIGHT HEART CATHETERIZATION, NITRIC OXIDE STUDY (07/15/2024 11:51 AM WRAPPER CASER) Anatomical Region Laterality Modality X-Ray Angiograph y 07/15/2024 10:5 7 AM WRAPPER CASER Narrative 07/16/2024 5:48 AM WRAPPER CASER For the complete report, see the Order-Level [...] reveal a step-up to suggest a significant hxtq-dr-lsgjx intracardiac shunt. Agitated saline study did not show any mojaw-uk-nvsl shunt. NITRIC OXIDE 80 PPM (+4L NC [...] not reveal a step-up to suggest a hkyzpcivjfdesbo-xo-raddn intracardiac shunt. Agitated saline study did not show mzywifmq-zi-ixcv shunt. NITRIC OXIDE 80 PPM (+4L NC [...] report, see the Order-Level Documents. Claudia Andrews APRN, C.N.P., D.N.P. CV CARDIAC CATH PROCEDURES Final Result * Echo - Intraprocedural Images Only (07/15/2024 11:44 AM WRAPPER CASER) Claudia Andrews APRN, C.N.P., D.N.P. CV ECHO PRO CEDURES Final Result [facility] NA * (ABNORMAL) Magnesium (07/15/2024 7:13 AM WRAPPER CASER) Magnesium, S 3.0(H) 1.7 - 2.3 mg/dL 07/15/2024 8:08 AM WRAPPER CASER DTL Blood (Blood, Venous) 07/15/2024 7:13 AM WRAPPER CASER 07/15/2024 7:49 AM WRAPPER CASER Claudia Andrews APRN, C.N.P., D.N.P. LAB BLOOD A DD-ON Final Result [facility] [address] [place] [address], [facility] DTL [facility] [address] [place] [address] * (ABNORMAL) Basic Metabolic Panel (07/15/2024 7:13 AM WRAPPER CASER) Pathologist [facility] [place] Potassium, S 4.9 3.6 - 5.2 mmol/L 07/15/2024 8:08 AM WRAPPER CASER DTL Sodium, S 143 135 - 145 mmol/L 07/15/2024 8:08 AM WRAPPER CASER DTL Chloride, S 98 98 - 107 mmol/L 07/15/2024 8:08 AM WRAPPER CASER DTL Bicarbonate, S 36(H) 22 - 29 mmol/L 07/15/2024 8:08 AM WRAPPER CASER DTL Anion Gap 9 7 - 15 07/15/2024 8:08 AM WRAPPER CASER DTL BUN (Blood Urea Nitrogen), S 73(H) 6 - 21 mg/dL 07/15/2024 8:08 AM WRAPPER CASER DTL Creatinine 1.69(H) 0.59 - 1.04 mg/dL 07/15/2024 8:08 AM WRAPPER CASER DTL Estimated GFR (eGFR) 35(L) >=60 mL/min/BSA 07/15/2024 8:08 AM WRAPPER CASER DTL Comment: Estimated GFR calculated using the 2020 CKD_EPI creatinine equation. Calcium, Total, S 8.8 8.6 - 10.0 mg/dL 07/15/2024 8:08 AM WRAPPER CASER DTL Glucose, S 130 70 - 140 mg/dL 07/15/2024 8:08 AM WRAPPER CASER DTL Blood (Blood, Venous) 07/15/2024 7:13 AM WRAPPER CASER 07/15/2024 7:49 AM WRAPPER CASER Claudia Andrews APRN, C.N.P., D.N.P. LAB BLOOD A DD-ON Final Result [facility] [address] [place] [address], [facility] DTL [facility] [address] [place] [address] * (ABNORMAL) CBC without Differential (07/15/2024 7:12 AM WRAPPER CASER) [facility] Hemoglobin 7.3(L) 11.6 - 15.0 g/dL 07/15/2024 7:53 AM WRAPPER CASER DTL Hematocrit 23.8(L) 35.5 - 44.9 % 07/15/2024 7:53 AM WRAPPER CASER DTL Erythrocytes 2.57(L) 3.92 - 5.13 x10(12)/L 07/15/2024 7:53 AM WRAPPER CASER DTL MCV 92.6 78.2 - 97.9 fL 07/15/2024 7:53 AM WRAPPER CASER DTL RBC Distrib Width 21.3(H) 12.2 - 16.1 % 07/15/2024 7:53 AM WRAPPER CASER DTL Platelet Count 316 157 - 371 x10(9)/L 07/15/2024 7:53 AM WRAPPER CASER DTL Leukocytes 26.5(H) 3.4 - 9.6 x10(9)/L 07/15/2024 9:25 AM WRAPPER CASER DTL Comment:Corrected for normob lasts. Blood (Blood, Venous) 07/15/2024 7:12 AM WRAPPER CASER 07/15/2024 7:38 AM WRAPPER CASER Claudia Andrews APRN, C.N.P., D.N.P. LAB BLOOD A DD-ON Final Result Performing Organization Address City/[facility]/ZIP Co de Phone Number [facility] [address] [place] [address], [facility] DTL [facility] 200 [place] [address] * (ABNORMAL) CBC without Differential (07/14/2024 9:32 AM WRAPPER CASER) [facility] Hemoglobin 7.3(L) 11.6 - 15.0 g/dL 07/14/2024 10:42 AM WRAPPER CASER DTL Comment:REVISED RESULTS Hematocrit 23.4(L) 35.5 - 44.9 % 07/14/2024 10:42 AM WRAPPER CASER DTL Comment:REVISED RESULTS Erythrocytes 2.52(L) 3.92 - 5.13 x10(12)/L 07/14/2024 10:42 AM WRAPPER CASER DTL Comment:REVISED RESULTS MCV 92.9 78.2 - 97.9 fL 07/14/2024 10:42 AM WRAPPER CASER DTL Comment:REVISED RESULTS RBC Distrib Width 21.3(H) 12.2 - 16.1 % 07/14/2024 10:42 AM WRAPPER CASER DTL Comment:REVISED RESULTS Platelet Count 337 157 - 371 x10(9)/L 07/14/2024 10:42 AM WRAPPER CASER DTL Comment:REVISED RESULTS Leukocytes 28.2(H) 3.4 - 9.6 x10(9)/L 07/14/2024 11:22 AM WRAPPER CASER [facility] Comment:Corrected for normob lasts Blood 07/14/2024 9:32 AM WRAPPER CASER 07/14/2024 10:42 AM WRAPPER CASER Stephen Vasquez P.A.-C. LAB BLOOD ADD-ON Final Res ult Performing Organization Address City/[facility]/ZIP Co de Phone Number [facility] 200 [place] [address], [facility] [address] [place] [address] * (ABNORMAL) Magnesium (07/14/2024 9:32 AM WRAPPER CASER) Magnesium, S 2.9(H) 1.7 - 2.3 mg/dL 07/14/2024 10:42 AM WRAPPER CASER DTL Blood (Blood, Venous) 07/14/2024 9:32 AM WRAPPER CASER 07/14/2024 10:42 AM WRAPPER CASER Stephen AlvesC. LAB BLOOD ADD-ON Final Res ult [facility] 200 [place] [address], [facility] DTL [facility] [address] * CBC without Differential (07/14/2024 9:32 AM WRAPPER CASER) Hemoglobin CANCELED 11.6 - 15.0 g/dL 07/14/2024 11:13 AM WRAPPER CASER DTL Comment: REVISED RESULTS ----PREVIOUSLY REPORTED ---- 7.3 g/dL Flagged as: Abnormal_Low (Reported 07/14/2024 09:42) Hematocrit CANCELED 35.5 - 44.9 % 07/14/2024 11:13 AM WRAPPER CASER DTL Comment: REVISED RESULTS ----PREVIOUSLY REPORTED ---- 23.4 % Flagged as: Abnormal_Low (Reported 07/14/2024 09:42) Erythrocytes CANCELED 3.92 - 5.13 x10(12)/L 07/14/2024 11:13 AM WRAPPER CASER DTL Comment: REVISED RESULTS ----PREVIOUSLY REPORTED ---- 2.52 x10(12)/L Flagged as: Abnormal_Low (Reported 07/14/2024 09:42) MCV CANCELED 78.2 - 97.9 fL 07/14/2024 11:13 AM WRAPPER CASER DTL Comment: REVISED RESULTS ----PREVIOUSLY REPORTED ---- 92.9 fL Flagged as: Normal (Reported 07/14/2024 09:42) RBC Distrib Width CANCELED 12.2 - 16.1 % 07/14/2024 11:13 AM WRAPPER CASER DTL Comment: REVISED RESULTS ----PREVIOUSLY REPORTED ---- 21.3 % Flagged as: Abnormal_High (Reported 07/14/2024 09:42) Platelet Count CANCELED 157 - 371 x10(9)/L 07/14/2024 11:13 AM WRAPPER CASER DTL Comment: REVISED RESULTS ----PREVIOUSLY REPORTED ---- 337 x10(9)/L Flagged as: Normal (Reported 07/14/2024 09:42) Leukocytes CANCELED 07/14/2024 11:13 AM WRAPPER CASER [facility] Comment:Result canceled by [facility]en [facility]. Blood (Blood, Venous) 07/14/2024 9:32 AM WRAPPER CASER 07/14/2024 10:42 AM WRAPPER CASER Narrative [facility] - 07/14/2024 11:13 AM WRAPPER CASER CBC without Differential was cancelled on 07/14/2024 at 10:13; Duplicate test request. !CNCL! Stephen Vasquez P.A.-C. LAB BLOOD ADD-ON Edited Re sult - Final [facility] [address] [place] [address], [facility] DTL [facility] [address] [place], [place] [id number] [place] [address] [address] [place] [address] * (ABNORMAL) Basic Metabolic Panel (07/14/2024 9:32 AM WRAPPER CASER) Pathologist [facility] [place] Potassium, S 5.0 3.6 - 5.2 mmol/L 07/14/2024 10:42 AM WRAPPER CASER DTL Sodium, S 139 135 - 145 mmol/L 07/14/2024 10:42 AM WRAPPER CASER DTL Chloride, S 95(L) 98 - 107 mmol/L 07/14/2024 10:42 AM WRAPPER CASER DTL Bicarbonate, S 32(H) 22 - 29 mmol/L 07/14/2024 10:42 AM WRAPPER CASER DTL Anion Gap 12 7 - 15 07/14/2024 10:42 AM WRAPPER CASER DTL BUN (Blood Urea Nitrogen), S 80(H) 6 - 21 mg/dL 07/14/2024 10:42 AM WRAPPER CASER DTL Creatinine 1.96(H) 0.59 - 1.04 mg/dL 07/14/2024 10:42 AM WRAPPER CASER DTL Estimated GFR (eGFR) 29(L) >=60 mL/min/BSA 07/14/2024 10:42 AM WRAPPER CASER DTL Comment: Estimated GFR calculated using the 2020 CKD_EPI creatinine equation. Calcium, Total, S 8.5(L) 8.6 - 10.0 mg/dL 07/14/2024 10:42 AM WRAPPER CASER DTL Glucose, S 124 70 - 140 mg/dL 07/14/2024 10:42 AM WRAPPER CASER DTL Blood (Blood, Venous) 07/14/2024 9:32 AM WRAPPER CASER 07/14/2024 10:42 AM WRAPPER CASER Stephen Vasquez P.A.-C. LAB BLOOD ADD-ON Final Res ult Performing Organization Address [facility] Co de Phone Number [facility] [address] 200 [place] [address] * (ABNORMAL) Magnesium (07/13/2024 9:45 AM WRAPPER CASER) Pathologist [facility] [place] Magnesium, S 2.8(H) 1.7 - 2.3 mg/dL 07/13/2024 10:45 AM WRAPPER CASER DTL Blood (Blood, Venous) 07/13/2024 9:45 AM WRAPPER CASER 07/13/2024 10:24 AM WRAPPER CASER Stephen Vasquez P.A.-C. LAB BLOOD ADD-ON Final Res ult Performing Organization Address [facility] Co de Phone Number [facility] 200 [place] [address] * (ABNORMAL) CBC without Differential (07/13/2024 9:45 AM WRAPPER CASER) Hemoglobin 7.3(L) 11.6 - 15.0 g/dL 07/13/2024 10:21 AM WRAPPER CASER DTL Hematocrit 22.7(L) 35.5 - 44.9 % 07/13/2024 10:21 AM WRAPPER CASER DTL Erythrocytes 2.48(L) 3.92 - 5.13 x10(12)/L 07/13/2024 10:21 AM WRAPPER CASER DTL MCV 91.5 78.2 - 97.9 fL 07/13/2024 10:21 AM WRAPPER CASER DTL RBC Distrib Width 21.1(H) 12.2 - 16.1 % 07/13/2024 10:21 AM WRAPPER CASER DTL Platelet Count 330 157 - 371 x10(9)/L 07/13/2024 10:21 AM WRAPPER CASER DTL Leukocytes 29.2(H) 3.4 - 9.6 x10(9)/L 07/13/2024 11:04 AM WRAPPER CASER DTL Comment:Corrected for normob lasts. Blood (Blood, Venous) 07/13/2024 9:45 AM WRAPPER CASER 07/13/2024 10:07 AM WRAPPER CASER Stephen Vasquez P.A.-C. LAB BLOOD ADD-ON Final Res ult [facility] [address] [place] [address], [facility] [address] [place] [address] * (ABNORMAL) Basic Metabolic Panel (07/13/2024 9:45 AM WRAPPER CASER) Potassium, S 4.7 3.6 - 5.2 mmol/L 07/13/2024 10:45 AM WRAPPER CASER DTL Sodium, S 138 135 - 145 mmol/L 07/13/2024 10:45 AM WRAPPER CASER DTL Chloride, S 94(L) 98 - 107 mmol/L 07/13/2024 10:45 AM WRAPPER CASER DTL Bicarbonate, S 34(H) 22 - 29 mmol/L 07/13/2024 10:45 AM WRAPPER CASER DTL Anion Gap 10 7 - 15 07/13/2024 10:45 AM WRAPPER CASER DTL BUN (Blood Urea Nitrogen), S 74(H) 6 - 21 mg/dL 07/13/2024 10:45 AM WRAPPER CASER DTL Creatinine 1.98(H) 0.59 - 1.04 mg/dL 07/13/2024 10:45 AM WRAPPER CASER DTL Estimated GFR (eGFR) 29(L) >=60 mL/min/BSA 07/13/2024 10:45 AM WRAPPER CASER DTL Comment: Estimated GFR calculated using the 2020 CKD_EPI creatinine equation. Calcium, Total, S 8.5(L) 8.6 - 10.0 mg/dL 07/13/2024 10:45 AM WRAPPER CASER DTL Glucose, S 148(H) 70 - 140 mg/dL 07/13/2024 10:45 AM WRAPPER CASER DTL Blood (Blood, Venous) 07/13/2024 9:45 AM WRAPPER CASER 07/13/2024 10:24 AM WRAPPER CASER Stephen Vasquez P.A.-C. LAB BLOOD ADD-ON Final Res ult Performing Organization Address [facility] Co de Phone Number [facility] [address] DTL [facility] 200 [place] [address] * Type and Screen (with Reflex Antibody ID) (07/13/2024 9:44 AM WRAPPER CASER) Pathologist [facility] [place] ABORh A Pos Not applicable 07/13/2024 10:17 AM WRAPPER CASER STRM Antibody Screen Negative Negative 07/13/2024 10:36 AM WRAPPER CASER STRM Type & Screen Expiration 07/16/2024 23:59 07/13/2024 10:17 AM WRAPPER CASER STRM Testing Location [place] DEFAULT 07/13/2024 10:00 AM WRAPPER CASER STRM Blood (Blood, Venous) 07/13/2024 9:44 AM WRAPPER CASER 07/13/2024 10:00 AM WRAPPER CASER Janeth Rojas P.A.-C. LAB BLOOD BANK TEST ORDERAB LES Final Result Performing Organization Address [facility] de Phone Number [facility] 200 [place], [place] [address] STRM [facility] 200 [place] [address] * (ABNORMAL) Basic Metabolic Panel (07/12/2024 5:11 PM WRAPPER CASER) Pathologist [facility] [place] Potassium, S 4.6 3.6 - 5.2 mmol/L 07/12/2024 6:18 PM WRAPPER CASER DTL Sodium, S 140 135 - 145 mmol/L 07/12/2024 6:18 PM WRAPPER CASER DTL Chloride, S 95(L) 98 - 107 mmol/L 07/12/2024 6:18 PM WRAPPER CASER DTL Bicarbonate, S 32(H) 22 - 29 mmol/L 07/12/2024 6:18 PM WRAPPER CASER DTL Anion Gap 13 7 - 15 07/12/2024 6:18 PM WRAPPER CASER DTL BUN (Blood Urea Nitrogen), S 63(H) 6 - 21 mg/dL 07/12/2024 6:18 PM WRAPPER CASER DTL Creatinine 1.68(H) 0.59 - 1.04 mg/dL 07/12/2024 6:18 PM WRAPPER CASER DTL Estimated GFR (eGFR) 35(L) >=60 mL/min/BSA 07/12/2024 6:18 PM WRAPPER CASER DTL Comment: Estimated GFR calculated using the 2020 CKD_EPI creatinine equation. Calcium, Total, S 8.4(L) 8.6 - 10.0 mg/dL 07/12/2024 6:18 PM WRAPPER CASER DTL Glucose, S 151(H) 70 - 140 mg/dL 07/12/2024 6:18 PM [facility] DTL Blood (Blood, Venous) 07/12/2024 5:11 PM [facility] 07/12/2024 6:02 PM [facility] us Janeth Rojas P.A.-C. LAB BLOOD ADD-ON Final Resu lt [facility] [place] [address] [place] [address], [facility] [address] [place] [address] * (ABNORMAL) CBC without Differential (07/12/2024 5:10 PM [facility]) Hemoglobin 7.1(L) 11.6 - 15.0 g/dL 07/12/2024 5:55 PM [facility] DTL Hematocrit 22.8(L) 35.5 - 44.9 % 07/12/2024 5:55 PM [facility] DTL Erythrocytes 2.46(L) 3.92 - 5.13 x10(12)/L 07/12/2024 5:55 PM [facility] DTL MCV 92.7 78.2 - 97.9 fL 07/12/2024 5:55 PM [facility] DTL RBC Distrib Width 20.6(H) 12.2 - 16.1 % 07/12/2024 5:55 PM [facility] DTL Platelet Count 318 157 - 371 x10(9)/L 07/12/2024 5:55 PM [facility] DTL Leukocytes 28.0(H) 3.4 - 9.6 x10(9)/L 07/12/2024 7:13 PM [facility] DTL Comment:Corrected for normob lasts. Blood (Blood, Venous) 07/12/2024 5:10 PM [facility] 07/12/2024 5:50 PM [facility] us Janeth Rojas P.A.-C. LAB BLOOD ADD-ON Final Resu lt Performing Organization Address City/[facility]/ZIP Co de Phone Number [facility] [address] [place] [address], [facility] DTL [facility] [address] [place] [address] * Transfuse Red Blood Cells : (07/12/2024 3:10 PM [facility]) Result Jessie Rojas P.A.-C. BLOOD TRANSFUSION ORDERABLE S Final Result * Transfuse Red Blood Cells : , 1 Units (07/12/2024 3:10 PM [facility]) us Janeth Rojas P.A.-C. BLOOD TRANSFUSION ORDERABLE S Final Result * Influenza A, B, RSV, PCR, Rapid (07/12/2024 12:28 PM [facility]) Pathologist [facility] [place] Influenza A, PCR, Rapid, V Negative Negative 07/12/2024 1:32 PM [facility] Influenza B, PCR, Rapid, V Negative Negative 07/12/2024 1:32 PM [facility] Resp Synctial Virus, PCR, Rapid Negative Negative 07/12/2024 1:32 PM [facility] Specimen Source Swab, Nasopharynx 07/12/2024 1:03 PM [facility] Swab (Nasopharynx) 07/12/2024 12:28 PM [facility] 07/12/2024 12:38 PM [facility] Result Jessie Rojas P.A.-C. LAB MICROBIOLOGY - GENERAL ORDERABLES Final Result Performing Organization Address City/[facility]/ZIP Co de Phone Number [facility] [address] [place] [address], [facility] [address] [place] [address] * SARS Coronavirus 2, PCR Rapid Symptomatic (07/12/2024 12:28 PM [facility]) Pathologist [facility] [place] SARS CoV-2, PCR, Rapid, V Undetected Undetected 07/12/2024 1:03 PM [facility] Coronavirus 2, Rapid, Source Swab, Nasopharynx 07/12/2024 12:38 PM [facility] Sw[facility] (Nasopharynx) 07/12/2024 12:28 PM [facility] 07/12/2024 12:38 PM [facility] us Janeth Rojas P.A.-C. LAB MICROBIOLOGY - GENERAL ORDERABLES Final Result [facility] [address] [place] [address] * (ABNORMAL) Glucose, POCT (07/12/2024 12:07 PM [facility]ER) [facility] Glucose, POCT, B 142(H) 70 - 140 mg/dL 07/12/2024 12:22 PM WRAPPER CASER PCLX Site Capillary 07/12/2024 12:22 PM WRAPPER CASER PCLX Last Intake 3-4 hours 07/12/2024 12:22 PM WRAPPER CASER PCLX Blood 07/12/2024 12:0 7 PM WRAPPER CASER 07/12/2024 12:22 PM WRAPPER CASER us Unknown Provider LAB POCT ORDERABLES-MANUAL Ese l Result [facility]OC [facility] [address] [place] [address], [facility] PCLX [facility] POC [address] [place] [address] * Bacteria / Ronit Culture, Blood #2 (07/12/2024 12:01 PM WRAPPER CASER) [facility] Bacteria/Maria R da Culture, Blood No growth after 5 days of incubation. 07/17/2024 1:02 PM WRAPPER CASER DTL Blood (Blood, Peripheral Draw) 07/12/2024 12:01 PM WRAPPER CASER 07/12/2024 12:28 PM WRAPPER CASER Comment:Specimen Source Site : Blood Janeth Rojas P.A.-C. LAB MICROBIOLOGY - GENERAL ORDERABLES Final Result Performing Organization Address [facility] Co de Phone Number [facility] [address] [place] [address], [facility] [address] [place] [address] * Bacteria / Ronit Culture, Blood #1 (07/12/2024 11:57 AM WRAPPER CASER) Pathologist [facility] [place] Bacteria/Maria R da Culture, Blood No growth after 5 days of incubation. 07/17/2024 1:02 PM WRAPPER CASER DT Blood (Blood, Peripheral Draw) 07/12/2024 11:57 AM WRAPPER CASER 07/12/2024 12:28 PM WRAPPER CASER Comment:Specimen Source Site : Blood Janeth Rojas P.A.-C. LAB MICROBIOLOGY - GENERAL ORDERABLES Final Result Performing Organization Address [facility] de Phone Number [facility] [address] [place] [address], [facility] [address] [place] [address] * ECG 12 Lead (07/12/2024 6:37 AM WRAPPER CASER) Ventricular Rate ECG/Min 105 BPM MUSE SC Interval 160 ms MUSE QRSD Interval 84 ms MUSE QT Interval 370 ms MUSE QTC Interval 489 ms MUSE P Ferguson -16 degrees MUSE R Ferguson 90 degrees MUSE T Wave Ferguson -13 degrees MUSE 07/12/2024 6:37 AM WRAPPER CASER 07/12/2024 7:00 AM WRAPPER CASER Impressions MUSE - 07/12/2024 7:00 AM WRAPPER CASER Sinus tachycardia with sinus arrhythmia Nonspecific ST [...] ORDERABLES Final Resu lt Performing Organization Address City/[facility] Co de Phone Number MUSE NA * Glucose, POCT (07/12/2024 6:30 AM WRAPPER CASER) Glucose, POCT, B 133 70 - 140 mg/dL 07/12/2024 6:35 AM WRAPPER CASER PCLX Site Capillary 07/12/2024 6:35 AM WRAPPER CASER PCLX Last Intake 3-4 hours 07/12/2024 6:35 AM WRAPPER CASER PCLX Blood 07/12/2024 6:30 AM WRAPPER CASER 07/12/2024 6:35 AM WRAPPER CASER us Unknown Provider LAB POCT ORDERABLES-MANUAL Ese l Result Performing Organization Address [facility] de Phone Number [facility] [address] [place] [address], [facility] PCLX [facility] POC [address] [place] [address] * Lactate (07/12/2024 5:02 AM WRAPPER CASER) Lactate, P 1.5 0.5 - 2.2 mmol/L 07/12/2024 5:22 AM WRAPPER CASER STMA Blood (Blood, Venous) 07/12/2024 5:02 AM WRAPPER CASER 07/12/2024 5:09 AM WRAPPER CASER us Stephen Vasquez P.A.-C. LAB BLOOD NON ADD-ON Final Result Performing Organization Address [facility] Co de Phone Number [facility] [address] [place] [address], [facility] STMA [facility] [address] [place] [address] * (ABNORMAL) Magnesium (07/12/2024 4:52 AM WRAPPER CASER) Magnesium, S 2.6(H) 1.7 - 2.3 mg/dL 07/12/2024 6:16 AM WRAPPER CASER DTL Blood (Blood, Venous) 07/12/2024 4:52 AM WRAPPER CASER 07/12/2024 5:53 AM WRAPPER CASER Stephen Vasquez P.A.-C. LAB BLOOD ADD-ON Final Res ult [facility] [address] [place] [address], [address] [address] * (ABNORMAL) CBC without Differential (07/12/2024 4:52 AM WRAPPER CASER) Pathologist [facility] [place] Hemoglobin 6.9(L) 11.6 - 15.0 g/dL 07/12/2024 5:52 AM WRAPPER CASER DTL Hematocrit 22.1(L) 35.5 - 44.9 % 07/12/2024 5:52 AM WRAPPER CASER DTL Erythrocytes 2.38(L) 3.92 - 5.13 x10(12)/L 07/12/2024 5:52 AM WRAPPER CASER DTL MCV 92.9 78.2 - 97.9 fL 07/12/2024 5:52 AM WRAPPER CASER DTL RBC Distrib Width 21.6(H) 12.2 - 16.1 % 07/12/2024 5:52 AM WRAPPER CASER DTL Platelet Count 355 157 - 371 x10(9)/L 07/12/2024 5:52 AM WRAPPER CASER DTL Leukocytes 31.6(H) 3.4 - 9.6 x10(9)/L 07/12/2024 6:23 AM WRAPPER CASER DTL Comment:Corrected for normob lasts. Blood (Blood, Venous) 07/12/2024 4:52 AM WRAPPER CASER 07/12/2024 5:43 AM WRAPPER CASER Stephen Vasquez P.A.-C. LAB BLOOD ADD-ON Final Res ult Performing Organization Address City/[facility]/ZIP Co de Phone Number [facility] [address] [place] [address], [facility] DTL [facility] [address] [place] [address] * (ABNORMAL) Basic Metabolic Panel (07/12/2024 4:52 AM WRAPPER CASER) Pathologist [facility] [place] Potassium, S 5.0 3.6 - 5.2 mmol/L 07/12/2024 6:16 AM WRAPPER CASER DTL Sodium, S 138 135 - 145 mmol/L 07/12/2024 6:16 AM WRAPPER CASER DTL Chloride, S 94(L) 98 - 107 mmol/L 07/12/2024 6:16 AM WRAPPER CASER DTL Bicarbonate, S 29 22 - 29 mmol/L 07/12/2024 6:16 AM WRAPPER CASER DTL Anion Gap 15 7 - 15 07/12/2024 6:16 AM WRAPPER CASER DTL BUN (Blood Urea Nitrogen), S 60(H) 6 - 21 mg/dL 07/12/2024 6:16 AM WRAPPER CASER DTL Creatinine 1.63(H) 0.59 - 1.04 mg/dL 07/12/2024 6:16 AM WRAPPER CASER DTL Estimated GFR (eGFR) 37(L) >=60 mL/min/BSA 07/12/2024 6:16 AM WRAPPER CASER DTL Comment: Estimated GFR calculated using the 2020 CKD_EPI creatinine equation. Calcium, Total, S 8.6 8.6 - 10.0 mg/dL 07/12/2024 6:16 AM WRAPPER CASER DTL Glucose, S 133 70 - 140 mg/dL 07/12/2024 6:16 AM WRAPPER CASER DTL Blood (Blood, Venous) 07/12/2024 4:52 AM WRAPPER CASER 07/12/2024 5:53 AM WRAPPER CASER us Stephen Vasquez P.A.-C. LAB BLOOD ADD-ON Final Res ult [facility] [address] [place] [address], [facility] DTL [facility] [address] [place] [address] * Glucose, POCT (07/11/2024 9:17 PM WRAPPER CASER) Glucose, POCT, B 117 70 - 140 mg/dL 07/11/2024 9:22 PM WRAPPER CASER PCLX Site Capillary 07/11/2024 9:22 PM WRAPPER CASER PCLX Last Intake 3-4 hours 07/11/2024 9:22 PM WRAPPER CASER PCLX Blood 07/11/2024 9:17 PM WRAPPER CASER 07/11/2024 9:22 PM WRAPPER CASER us Unknown Provider LAB POCT ORDERABLES-MANUAL Ese l Result Performing Organization Address City/[facility]/ZIP Co de Phone Number [facility] [address] [place] [address], [facility] PCLX [facility] P[facility] [address] [place] [address] * (ABNORMAL) Glucose, POCT (07/11/2024 4:37 PM WRAPPER CASER) Glucose, POCT, B 147(H) 70 - 140 mg/dL 07/11/2024 4:40 PM WRAPPER CASER PCLX Site Capillary 07/11/2024 4:40 PM WRAPPER CASER PCLX Last Intake 3-4 hours 07/11/2024 4:40 PM WRAPPER CASER PCLX Blood 07/11/2024 4:37 PM WRAPPER CASER 07/11/2024 4:41 PM WRAPPER CASER us Unknown Provider LAB POCT ORDERABLES-MANUAL Ese l Result [facility] [address] [place] [address], [facility] PCLX [facility] [address] [place] [address] * (ABNORMAL) Glucose, POCT (07/11/2024 11:37 AM WRAPPER CASER) Glucose, POCT, B 164(H) 70 - 140 mg/dL 07/11/2024 11:41 AM WRAPPER CASER PCLX Site Capillary 07/11/2024 11:41 AM WRAPPER CASER PCLX Last Intake 1-2 hours 07/11/2024 11:41 AM WRAPPER CASER PCLX Blood 07/11/2024 11:3 7 AM WRAPPER CASER 07/11/2024 11:41 AM WRAPPER CASER us Unknown Provider LAB POCT ORDERABLES-MANUAL Ese l Result Performing Organization Address City/[facility]/ZIP Co de Phone Number [facility] [address] [place] [address], [facility] PCLX [facility] POC [address] [place] [address] * (ABNORMAL) Magnesium (07/11/2024 9:10 AM WRAPPER CASER) Pathologist [facility] [place] Magnesium, S 2.6(H) 1.7 - 2.3 mg/dL 07/11/2024 10:08 AM WRAPPER CASER DTL Blood (Blood, Venous) 07/11/2024 9:10 AM WRAPPER CASER 07/11/2024 9:48 AM WRAPPER CASER us Janeth Rojas P.A.-C. LAB BLOOD ADD-ON Final Resu lt [facility] [address] [place] [address], [facility] DTL [facility] [address] [place] [address] * (ABNORMAL) CBC without Differential (07/11/2024 9:10 AM WRAPPER CASER) Pathologist [facility] [place] Hemoglobin 6.9(L) 11.6 - 15.0 g/dL 07/11/2024 9:36 AM WRAPPER CASER DTL Hematocrit 22.0(L) 35.5 - 44.9 % 07/11/2024 9:36 AM WRAPPER CASER DTL Erythrocytes 2.37(L) 3.92 - 5.13 x10(12)/L 07/11/2024 9:36 AM WRAPPER CASER DTL MCV 92.8 78.2 - 97.9 fL 07/11/2024 9:36 AM WRAPPER CASER DTL RBC Distrib Width 21.4(H) 12.2 - 16.1 % 07/11/2024 9:36 AM WRAPPER CASER DTL Platelet Count 359 157 - 371 x10(9)/L 07/11/2024 9:36 AM WRAPPER CASER DTL Leukocytes 30.4(H) 3.4 - 9.6 x10(9)/L 07/11/2024 10:05 AM WRAPPER CASER DTL Comment:Corrected for normob lasts. Blood (Blood, Venous) 07/11/2024 9:10 AM WRAPPER CASER 07/11/2024 9:30 AM WRAPPER CASER Janeth Rojas P.A.-C. LAB BLOOD ADD-ON Final Resu lt [facility] [address] [place] [address], [facility] [address] [place] [address] * (ABNORMAL) Basic Metabolic Panel (07/11/2024 9:10 AM WRAPPER CASER) Potassium, S 5.1 3.6 - 5.2 mmol/L 07/11/2024 10:08 AM WRAPPER CASER DTL Sodium, S 140 135 - 145 mmol/L 07/11/2024 10:08 AM WRAPPER CASER DTL Chloride, S 97(L) 98 - 107 mmol/L 07/11/2024 10:08 AM WRAPPER CASER DTL Bicarbonate, S 30(H) 22 - 29 mmol/L 07/11/2024 10:08 AM WRAPPER CASER DTL Anion Gap 13 7 - 15 07/11/2024 10:08 AM WRAPPER CASER DTL BUN (Blood Urea Nitrogen), S 51(H) 6 - 21 mg/dL 07/11/2024 10:08 AM WRAPPER CASER DTL Creatinine 1.55(H) 0.59 - 1.04 mg/dL 07/11/2024 10:08 AM WRAPPER CASER DTL Estimated GFR (eGFR) 39(L) >=60 mL/min/BSA 07/11/2024 10:08 AM WRAPPER CASER DTL Comment: Estimated GFR calculated using the 2020 CKD_EPI creatinine equation. Calcium, Total, S 8.5(L) 8.6 - 10.0 mg/dL 07/11/2024 10:08 AM WRAPPER CASER DTL Glucose, S 137 70 - 140 mg/dL 07/11/2024 10:08 AM WRAPPER CASER DTL Blood (Blood, Venous) 07/11/2024 9:10 AM WRAPPER CASER 07/11/2024 9:48 AM WRAPPER CASER us Janeth Rojas P.A.-C. LAB BLOOD ADD-ON Final Resu lt [facility] [address] [place] [address], [facility] DTL [facility] [address] [place] [address] * Glucose, POCT (07/11/2024 6:22 AM WRAPPER CASER) Glucose, POCT, B 132 70 - 140 mg/dL 07/11/2024 6:25 AM WRAPPER CASER PCLX Site Capillary 07/11/2024 6:25 AM WRAPPER CASER PCLX Last Intake 3-4 hours 07/11/2024 6:25 AM WRAPPER CASER PCLX Blood 07/11/2024 6:22 AM WRAPPER CASER 07/11/2024 6:26 AM WRAPPER CASER us Unknown Provider LAB POCT ORDERABLES-MANUAL Ese l Result Performing Organization Address [facility] Co de Phone Number [facility] [address] [place] [address], [facility] PCLX [facility] [address] [place] [address] * (ABNORMAL) Glucose, POCT (07/10/2024 10:21 PM WRAPPER CASER) Glucose, POCT, B 159(H) 70 - 140 mg/dL 07/10/2024 10:31 PM WRAPPER CASER PCLX Site Capillary 07/10/2024 10:31 PM WRAPPER CASER PCLX Last Intake 3-4 hours 07/10/2024 10:31 PM WRAPPER CASER PCLX Blood 07/10/2024 10:2 1 PM WRAPPER CASER 07/10/2024 10:31 PM WRAPPER CASER us Unknown Provider LAB POCT ORDERABLES-MANUAL Ese l Result Performing Organization Address City/[facility]/ZIP Co de Phone Number [facility] [address] [place] [address], [place] PCLX [facility] P[facility] [address] [place] [address] * Glucose, POCT (07/10/2024 9:53 PM WRAPPER CASER) Glucose, POCT, B 140 70 - 140 mg/dL 07/10/2024 9:58 PM WRAPPER CASER PCLX Last Intake 2-3 hours 07/10/2024 9:58 PM WRAPPER CASER PCLX Blood 07/10/2024 9:53 PM WRAPPER CASER 07/10/2024 9:59 PM WRAPPER CASER us Unknown Provider LAB POCT ORDERABLES-MANUAL Ese l Result Performing Organization Address [facility] Co de Phone Number [facility] [address] [place] [address], [facility] PCLX [facility] P[facility] [address] [place] [address] * ECG 12 Lead (07/10/2024 8:40 PM WRAPPER CASER) Ventricular Rate ECG/Min 112 BPM MUSE SC Interval 152 ms MUSE QRSD Interval 80 ms MUSE QT Interval 328 ms MUSE QTC Interval 448 ms MUSE P Ferguson 6 degrees MUSE R Ferguson 86 degrees MUSE T Wave Ferguson -14 degrees MUSE 07/10/2024 8:40 PM WRAPPER CASER 07/10/2024 8:50 PM WRAPPER CASER Impressions MUSE - 07/10/2024 8:50 PM WRAPPER CASER Sinus tachycardia Nonspecific ST and T wave abnormality When compared with ECG of 27-Apr-2024 08:51, ST and T waves have changed Reviewed by REG Camarena Narrative Procedure Note Jimenez Martinez M.D. - 07/10/2024 IMPRESSION: Sinus tachycardia Nonspecific ST and T wave abnormality When compared with ECG of 27-Apr-2024 08:51, ST and T waves have changed Reviewed by REG Camarena us Stephen Vasquez P.A.-C. ECG ORDERABLES Final Resu lt Performing Organization Address City/[facility]/ZIP Co de Phone Number MUSE NA * Glucose, POCT (07/10/2024 4:32 PM WRAPPER CASER) Glucose, POCT, B 127 70 - 140 mg/dL 07/10/2024 4:35 PM WRAPPER CASER PCLX Site Capillary 07/10/2024 4:35 PM WRAPPER CASER PCLX Last Intake 3-4 hours 07/10/2024 4:35 PM WRAPPER CASER PCLX Blood 07/10/2024 4:32 PM WRAPPER CASER 07/10/2024 4:35 PM WRAPPER CASER us Unknown Provider LAB POCT ORDERABLES-MANUAL Ese l Result [facility] [address] [place] [address], [facility] PCLX [facility] POC [address] [place] [address] * (ABNORMAL) Basic Metabolic Panel (07/10/2024 3:27 PM WRAPPER CASER) Potassium, S 5.0 3.6 - 5.2 mmol/L 07/10/2024 4:43 PM WRAPPER CASER DTL Sodium, S 142 135 - 145 mmol/L 07/10/2024 4:43 PM WRAPPER CASER DTL Chloride, S 98 98 - 107 mmol/L 07/10/2024 4:43 PM WRAPPER CASER DTL Bicarbonate, S 32(H) 22 - 29 mmol/L 07/10/2024 4:43 PM WRAPPER CASER DTL Anion Gap 12 7 - 15 07/10/2024 4:43 PM WRAPPER CASER DTL BUN (Blood Urea Nitrogen), S 43(H) 6 - 21 mg/dL 07/10/2024 4:43 PM WRAPPER CASER DTL Creatinine 1.33(H) 0.59 - 1.04 mg/dL 07/10/2024 4:43 PM WRAPPER CASER DTL Estimated GFR (eGFR) 47(L) >=60 mL/min/BSA 07/10/2024 4:43 PM WRAPPER CASER DTL Comment: Estimated GFR calculated using the 2020 CKD_EPI creatinine equation. Calcium, Total, S 8.7 8.6 - 10.0 mg/dL 07/10/2024 4:43 PM WRAPPER CASER DTL Glucose, S 118 70 - 140 mg/dL 07/10/2024 4:43 PM WRAPPER CASER DTL Blood (Blood, Venous) 07/10/2024 3:27 PM WRAPPER CASER 07/10/2024 4:28 PM WRAPPER CASER Janeth Rojas P.A.-C. LAB BLOOD ADD-ON Final Resu lt Performing Organization Address City/[facility]/ZIP Co de Phone Number [facility] [address] DTL [facility] [address] [place] [address] * Glucose, POCT (07/10/2024 11:54 AM WRAPPER CASER) Glucose, POCT, B 106 70 - 140 mg/dL 07/10/2024 11:58 AM WRAPPER CASER PCLX Site Capillary 07/10/2024 11:58 AM WRAPPER CASER PCLX Last Intake 3-4 hours 07/10/2024 11:58 AM WRAPPER CASER PCLX Blood 07/10/2024 11:5 4 AM WRAPPER CASER 07/10/2024 11:59 AM WRAPPER CASER Unknown Provider LAB POCT ORDERABLES-MANUAL Ese l Result Performing Organization Address [facility] Co de Phone Number [facility] [address] PCLX [facility] P[facility] [address] [place] [address] * (ABNORMAL) Magnesium (07/10/2024 5:45 AM WRAPPER CASER) Magnesium, S 2.5(H) 1.7 - 2.3 mg/dL 07/10/2024 7:08 AM WRAPPER CASER DTL Blood (Blood, Venous) 07/10/2024 5:45 AM WRAPPER CASER 07/10/2024 6:44 AM WRAPPER CASER Janeth Rojas P.A.-C. LAB BLOOD ADD-ON Final Resu lt Performing Organization Address City/[facility]/ZIP Co de Phone Number [facility] [address] DTL [facility] [address] [place] [address] * (ABNORMAL) CBC without Differential (07/10/2024 5:45 AM WRAPPER CASER) Pathologist [facility] [place] Hemoglobin 7.2(L) 11.6 - 15.0 g/dL 07/10/2024 6:42 AM WRAPPER CASER DTL Hematocrit 23.5(L) 35.5 - 44.9 % 07/10/2024 6:42 AM WRAPPER CASER DTL Erythrocytes 2.51(L) 3.92 - 5.13 x10(12)/L 07/10/2024 6:42 AM WRAPPER CASER DTL MCV 93.6 78.2 - 97.9 fL 07/10/2024 6:42 AM WRAPPER CASER DTL RBC Distrib Width 22.1(H) 12.2 - 16.1 % 07/10/2024 6:42 AM WRAPPER CASER DTL Platelet Count 371 157 - 371 x10(9)/L 07/10/2024 6:42 AM WRAPPER CASER DTL Leukocytes 27.8(H) 3.4 - 9.6 x10(9)/L 07/10/2024 8:01 AM WRAPPER CASER DTL Comment:Corrected for normob lasts. Blood (Blood, Venous) 07/10/2024 5:45 AM WRAPPER CASER 07/10/2024 6:33 AM WRAPPER CASER us Janeth Rojas P.A.-C. LAB BLOOD ADD-ON Final Resu lt [facility] [address] [place] [address], [facility] [address] [place] [address] * (ABNORMAL) Basic Metabolic Panel (07/10/2024 5:45 AM WRAPPER CASER) Pathologist [facility] [place] Potassium, S 5.0 3.6 - 5.2 mmol/L 07/10/2024 7:08 AM WRAPPER CASER DTL Sodium, S 143 135 - 145 mmol/L 07/10/2024 7:08 AM WRAPPER CASER DTL Chloride, S 99 98 - 107 mmol/L 07/10/2024 7:08 AM WRAPPER CASER DTL Bicarbonate, S 31(H) 22 - 29 mmol/L 07/10/2024 7:08 AM WRAPPER CASER DTL Anion Gap 13 7 - 15 07/10/2024 7:08 AM WRAPPER CASER DTL BUN (Blood Urea Nitrogen), S 43(H) 6 - 21 mg/dL 07/10/2024 7:12 AM WRAPPER CASER DTL Creatinine 1.34(H) 0.59 - 1.04 mg/dL 07/10/2024 7:08 AM WRAPPER CASER DTL Estimated GFR (eGFR) 47(L) >=60 mL/min/BSA 07/10/2024 7:08 AM WRAPPER CASER DTL Comment: Estimated GFR calculated using the 2020 CKD_EPI creatinine equation. Calcium, Total, S 8.7 8.6 - 10.0 mg/dL 07/10/2024 7:08 AM WRAPPER CASER DTL Glucose, S 108 70 - 140 mg/dL 07/10/2024 7:08 AM WRAPPER CASER DTL Blood (Blood, Venous) 07/10/2024 5:45 AM WRAPPER CASER 07/10/2024 6:44 AM WRAPPER CASER us Janeth Rojas P.A.-C. LAB BLOOD ADD-ON Final Resu lt Performing Organization Address City/[facility]/[place] [address], [place] [address] * Glucose, POCT (07/10/2024 5:43 AM WRAPPER CASER) Glucose, POCT, B 120 70 - 140 mg/dL 07/10/2024 5:49 AM WRAPPER CASER PCLX Site Venstick 07/10/2024 5:49 AM WRAPPER CASER PCLX Last Intake 3-4 hours 07/10/2024 5:49 AM WRAPPER CASER PCLX Blood 07/10/2024 5:43 AM WRAPPER CASER 07/10/2024 5:49 AM WRAPPER CASER us Unknown Provider LAB POCT ORDERABLES-MANUAL Ese l Result [facility] [address] [place] [address], [facility] PCLX [facility] P[facility] [address] [place] [address] * Glucose, POCT (07/09/2024 9:07 PM WRAPPER CASER) Glucose, POCT, B 124 70 - 140 mg/dL 07/09/2024 9:09 PM WRAPPER CASER PCLX Site Capillary 07/09/2024 9:09 PM WRAPPER CASER PCLX Last Intake 3-4 hours 07/09/2024 9:09 PM WRAPPER CASER PCLX Blood 07/09/2024 9:07 PM WRAPPER CASER 07/09/2024 9:09 PM WRAPPER CASER us Unknown Provider LAB POCT ORDERABLES-MANUAL Ese l Result [facility] [address] [place] [address], [place] PCLX [facility] P[facility] [address] [place] [address] * Transfuse Red Blood Cells : (07/09/2024 5:26 PM WRAPPER CASER) us Janeth Rojas P.A.-C. BLOOD TRANSFUSION ORDERABLE S Final Result * Transfuse Red Blood Cells : , 1 Units (07/09/2024 5:26 PM WRAPPER CASER) us Janeth Rojas P.A.-C. BLOOD TRANSFUSION ORDERABLE S Final Result * Glucose, POCT (07/09/2024 5:12 PM WRAPPER CASER) Glucose, POCT, B 123 70 - 140 mg/dL 07/09/2024 5:14 PM WRAPPER CASER PCLX Site Capillary 07/09/2024 5:14 PM WRAPPER CASER PCLX Last Intake 3-4 hours 07/09/2024 5:14 PM WRAPPER CASER PCLX Blood 07/09/2024 5:12 PM WRAPPER CASER 07/09/2024 5:15 PM WRAPPER CASER us Unknown Provider LAB POCT ORDERABLES-MANUAL Ese l Result [facility] [address] [place] [address], [place] PCLX [facility] [address] [place] [address] * (ABNORMAL) Basic Metabolic Panel (07/09/2024 3:58 PM WRAPPER CASER) Pathologist [facility] [place] Potassium, S 4.9 3.6 - 5.2 mmol/L 07/09/2024 4:50 PM WRAPPER CASER DTL Sodium, S 142 135 - 145 mmol/L 07/09/2024 4:50 PM WRAPPER CASER DTL Chloride, S 100 98 - 107 mmol/L 07/09/2024 4:50 PM WRAPPER CASER DTL Bicarbonate, S 31(H) 22 - 29 mmol/L 07/09/2024 4:50 PM WRAPPER CASER DTL Anion Gap 11 7 - 15 07/09/2024 4:50 PM WRAPPER CASER DTL BUN (Blood Urea Nitrogen), S 42(H) 6 - 21 mg/dL 07/09/2024 4:50 PM WRAPPER CASER DTL Creatinine 1.42(H) 0.59 - 1.04 mg/dL 07/09/2024 4:50 PM WRAPPER CASER DTL Estimated GFR (eGFR) 43(L) >=60 mL/min/BSA 07/09/2024 4:50 PM WRAPPER CASER DTL Comment: Estimated GFR calculated using the 2020 CKD_EPI creatinine equation. Calcium, Total, S 8.5(L) 8.6 - 10.0 mg/dL 07/09/2024 4:50 PM WRAPPER CASER DTL Glucose, S 126 70 - 140 mg/dL 07/09/2024 4:50 PM WRAPPER CASER DTL Blood (Blood, Venous) 07/09/2024 3:58 PM WRAPPER CASER 07/09/2024 4:35 PM WRAPPER CASER us Janeth Rojas P.A.-C. LAB BLOOD ADD-ON Final Resu lt [facility] [address] [place] [address], [place] [facility] [address] [place] [address] * (ABNORMAL) CBC without Differential (07/09/2024 3:58 PM WRAPPER CASER) Pathologist [facility] [place] Hemoglobin 7.5(L) 11.6 - 15.0 g/dL 07/09/2024 4:29 PM WRAPPER CASER DTL Hematocrit 24.3(L) 35.5 - 44.9 % 07/09/2024 4:29 PM [facility] DTL Erythrocytes 2.60(L) 3.92 - 5.13 x10(12)/L 07/09/2024 4:29 PM [facility] DTL MCV 93.5 78.2 - 97.9 fL 07/09/2024 4:29 PM [facility] DTL RBC Distrib Width 21.4(H) 12.2 - 16.1 % 07/09/2024 4:29 PM [facility] DTL Platelet Count 400(H) 157 - 371 x10(9)/L 07/09/2024 4:29 PM [facility] DTL Leukocytes 30.0(H) 3.4 - 9.6 x10(9)/L 07/09/2024 5:04 PM [facility] DTL Comment:Corrected for normob lasts. Blood (Blood, Venous) 07/09/2024 3:58 PM [employer] 07/09/2024 4:23 PM [employer] us Janeth Rojas P.A.-C. LAB BLOOD ADD-ON Final Resu lt Performing Organization Address City/[facility]/ZIP Co de Phone Number [facility] [address] [place] [address], [facility] [address] [place] [address] * Glucose, POCT (07/09/2024 12:03 PM [employer]) Glucose, POCT, B 116 70 - 140 mg/dL 07/09/2024 12:06 PM [facility] PCLX Site Capillary 07/09/2024 12:06 PM [facility] PCLX Last Intake 3-4 hours 07/09/2024 12:06 PM [facility] PCLX Blood 07/09/2024 12:0 3 PM [employer] [employer] 07/09/2024 12:06 PM [employer] us Unknown Provider LAB POCT ORDERABLES-MANUAL Ese l Result POC [facility] [address] [place] [address], [facility] PCLX [facility] POC [address] [place] [address] * (TTE) 2D ECHO DOPPLER COLOR (07/09/2024 11:37 AM [employer]PER [employer]ER) Ejection Fraction 64 MC CV EIMS LV [...] Laterality Modality Echocardiography 07/09/2024 10:2 7 AM [employer] Impressions 07/09/2024 1:55 PM [employer] Echocardiogram performed per follow-up pulmonary hypertension protocol. [...] the Order-Level Documents. Narrative 07/09/2024 1:55 PM [employer]ER For the complete report, see the Order-Level [...] ECHO PROCEDURES Final Re sult * (ABNORMAL) Morphology Eval (special smear) (07/09/2024 6:00 AM [employer]) Neutrophilic Segs and Bands 72 50 - 75 % 07/09/2024 8:33 AM WRAPPER CASER DHPM Lymphocytes 4(L) 18 - 42 % 07/09/2024 8:33 AM WRAPPER CASER DHPM Monocytes 4 2 - 11 % 07/09/2024 8:33 AM WRAPPER CASER DHPM Basophils 1 0 - 2 % 07/09/2024 8:33 AM [facility]APPER CASER DHPM Metamyelocytes 10(H) <1 % 07/09/2024 8:33 AM [facility]APPER CASER DHPM Myelocytes 8(H) <0.5 % 07/09/2024 8:33 AM [facility]APPER CASER DHPM Blasts 1(H) <1 % 07/09/2024 8:33 AM [facility]PER CASER DHPM Megakaryocytes 2(H) <1 /100 WBC 07/09/2024 8:33 AM [facility]APPER CASER DHPM Nucleated RBC 77 /100 WBC 07/09/2024 8:33 AM WRAPPER CASER DHPM Manual Absolute Neutrophil Count 18.50(H) 1.56 - 6.45 x10(9)/L 07/09/2024 8:33 AM WRAPPER CASER DHPM Comment: ----ADDITIONAL INFORMATION---- The manual absolute neutrophil count is derived from a manual differential count and therefore is not exactly comparable to the automated absolute neutrophil count. Blood 07/09/2024 6:00 AM WRAPPER CASER 07/09/2024 6:30 AM WRAPPER CASER us Lanette Solis APRN, C.N.P., M.S.N. LAB BLOOD ADD-ON Final Result [facility] [address] [place] [address], [facility] [address] [place] [address] * (ABNORMAL) CBC with Differential, Blood (07/09/2024 6:00 AM WRAPPER CASER) [facility] Hemoglobin 6.7(L) 11.6 - 15.0 g/dL 07/09/2024 6:39 AM WRAPPER CASER DTL Hematocrit 22.3(L) 35.5 - 44.9 % 07/09/2024 6:39 AM WRAPPER CASER DTL Erythrocytes 2.40(L) 3.92 - 5.13 x10(12)/L 07/09/2024 6:39 AM WRAPPER CASER DTL MCV 92.9 78.2 - 97.9 fL 07/09/2024 6:39 AM WRAPPER CASER DTL RBC Distrib Width 22.8(H) 12.2 - 16.1 % 07/09/2024 8:15 AM WRAPPER CASER DHPM Platelet Count 417(H) 157 - 371 x10(9)/L 07/09/2024 6:39 AM WRAPPER CASER DTL Leukocytes 25.7(H) 3.4 - 9.6 x10(9)/L 07/09/2024 8:32 AM WRAPPER CASER DHPM Comment:Corrected for normob lasts. Neutrophils See Comment 1.56 - 6.45 x10(9)/L 07/09/2024 8:32 AM WRAPPER CASER DHPM Comment:Auto-diff results no t valid. See manual differential. Blood (Blood, Venous) 07/09/2024 6:00 AM WRAPPER CASER 07/09/2024 6:30 AM WRAPPER CASER Lanette Solis APRN, C.N.P., M.S.N. LAB BLOOD ADD-ON Final Result Performing Organization Address City/[facility]/ZIP Co de Phone Number [facility] [address] [place] [address], [facility] [address] [place] [address] * (ABNORMAL) S-TSH (Thyroid-Stimulating Hormone - Sensitive) (07/09/2024 6:00 AM WRAPPER CASER) TSH, Sensitive 7.3(H) 0.3 - 4.2 mIU/L 07/09/2024 7:15 AM WRAPPER CASER DTL Blood (Blood, Venous) 07/09/2024 6:00 AM WRAPPER CASER 07/09/2024 6:41 AM WRAPPER CASER us Vanda Cruz APRN.N.P., M.S.N. LAB BLOOD ADD-ON Final Result Performing Organization Address City/[facility]/ZIP Co de Phone Number [facility] [address] [place] [address], [facility] [address] [place] [address] * (ABNORMAL) Magnesium (07/09/2024 6:00 AM WRAPPER CASER) Magnesium, S 2.5(H) 1.7 - 2.3 mg/dL 07/09/2024 7:15 AM WRAPPER CASER DTL Blood (Blood, Venous) 07/09/2024 6:00 AM WRAPPER CASER 07/09/2024 6:41 AM WRAPPER CASER us Lanette Solis APRN, C.N.P., M.S.N. LAB BLOOD ADD-ON Final Result [facility] [address] [place] [address], [facility] [address] [place] [address] * (ABNORMAL) Lipid Panel (07/09/2024 6:00 AM WRAPPER CASER) Pathologist [facility] [place] Triglycerides 118 mg/dL 07/09/2024 7:15 AM WRAPPER CASER DTL Comment: ----REFERENCE VALUE---- Normal: <150 mg/dL Borderline High: 150-199 mg/dL High: 200-499 mg/dL Very High: > or =500 mg/dL Cholesterol, Total 93 mg/dL 2023 7:15 AM WRAPPER CASER DTL Comment: ----REFERENCE VALUE---- Desirable: < 200 mg/dL Borderline High: 200 - 239 mg/dL High: > or = 240 mg/dL Cholesterol, LDL, Calculated 54 mg/dL 07/09/2024 7:15 AM WRAPPER CASER DTL Comment: ----REFERENCE VALUE---- Desirable: <100 mg/dL Above Desirable: 100-129 mg/dL Borderline High: 130-159 mg/dL High: 160-189 mg/dL Very High: >=190 mg/dL ----ADDITIONAL INFORMATION---- LDL cholesterol calculated using the Cody/NIH equation. Cholesterol, HDL, S 17(L) >=50 mg/dL 07/09/2024 7:15 AM WRAPPER CASER DTL Cholesterol, Non-HDL, Calculated 76 mg/dL 07/09/2024 7:15 AM WRAPPER CASER DTL Comment: ----REFERENCE VALUE---- Desirable: <130 mg/dL Above Desirable: 130-159 mg/dL Borderline High: 160-189 mg/dL High: 190-219 mg/dL Very High: > or =220 mg/dL Fasting (8 HR or more) Yes 07/09/2024 6:00 AM WRAPPER CASER DTL Blood (Blood, Venous) 07/09/2024 6:00 AM WRAPPER CASER 07/09/2024 6:41 AM WRAPPER CASER Lanette Solis APRN, C.N.P., M.S.N. LAB BLOOD ADD-ON Final Result Performing Organization Address [facility] [place] [address] * (ABNORMAL) Hemoglobin A1c (07/09/2024 6:00 AM WRAPPER CASER) Hemoglobin A1c, B 7.4(H) 4.0 - 5.6 % 07/09/2024 6:49 AM WRAPPER CASER DTL Comment: Hemoglobin A1c values greater than or equal to 6.5 percent are diagnostic for diabetes mellitus. Diagnosis should be confirmed by repeat testing. In diabetic patients, HbA1c goals should be discussed with healthcare provider. Blood (Blood, Venous) 07/09/2024 6:00 AM WRAPPER CASER 07/09/2024 6:30 AM WRAPPER CASER Ritesh Cruz APRNNMaria Elena., M.S.N. LAB BLOOD ADD-ON Final Result Performing Organization Address [facility] de Phone Number [address] [place] [address] * (ABNORMAL) Comprehensive Metabolic Panel (07/09/2024 6:00 AM WRAPPER CASER) Potassium, S 5.3(H) 3.6 - 5.2 mmol/L 07/09/2024 7:15 AM WRAPPER CASER DTL Sodium, S 143 135 - 145 mmol/L 07/09/2024 7:15 AM WRAPPER CASER DTL Chloride, S 102 98 - 107 mmol/L 07/09/2024 7:15 AM WRAPPER CASER DTL Bicarbonate, S 32(H) 22 - 29 mmol/L 07/09/2024 7:15 AM WRAPPER CASER DTL Anion Gap 9 7 - 15 07/09/2024 7:15 AM WRAPPER CASER DTL BUN (Blood Urea Nitrogen), S 41(H) 6 - 21 mg/dL 07/09/2024 7:15 AM WRAPPER CASER DTL Creatinine 1.30(H) 0.59 - 1.04 mg/dL 07/09/2024 7:15 AM WRAPPER CASER DTL Estimated GFR (eGFR) 48(L) >=60 mL/min/BS A 07/09/2024 7:15 AM WRAPPER CASER DTL Comment: Estimated GFR calculated using the 2020 CKD_EPI creatinine equation. Calcium, Total, S 8.4(L) 8.6 - 10.0 mg/dL 07/09/2024 7:15 AM WRAPPER CASER DTL Glucose, S 111 70 - 140 mg/dL 07/09/2024 7:15 AM WRAPPER CASER DTL Protein, Total, S 5.8(L) 6.3 - 7.9 g/dL 07/09/2024 7:15 AM WRAPPER CASER DTL Albumin, S 3.8 3.5 - 5.0 g/dL 07/09/2024 7:15 AM WRAPPER CASER DTL Aspartate Aminotransferase (AST), S 50(H) 8 - 43 U/L 07/09/2024 7:15 AM WRAPPER CASER DTL Alkaline Phosphatase, S 271(H) 35 - 104 U/L 07/09/2024 7:15 AM WRAPPER CASER DTL Alanine Aminotransferase (ALT), S 42 7 - 45 U/L 07/09/2024 7:15 AM WRAPPER CASER DTL Bilirubin, Total, S 1.3(H) 0.0 - 1.2 mg/dL 07/09/2024 7:15 AM WRAPPER CASER DTL Blood (Blood, Venous) 07/09/2024 6:00 AM WRAPPER CASER 07/09/2024 6:41 AM WRAPPER CASER Lanette Solis APRN, C.N.P., M.S.N. LAB BLOOD ADD-ON Final Result Performing Organization Address City/[facility]/ZIP Co de Phone Number [facility] [address] [place] [address], [facility] DTL [facility] [address] [place] [address] * Type and Screen (with Reflex Antibody ID) (07/09/2024 5:55 AM WRAPPER CASER) Pathologist [facility] [place] ABORh A Pos Not applicable 07/09/2024 11:05 AM WRAPPER CASER STRM Antibody Screen Negative Negative 07/09/2024 11:15 AM WRAPPER CASER STRM Type & Screen Expiration 07/12/2024 23:59 07/09/2024 11:05 AM WRAPPER CASER STRM Testing Location Deidra DEFAULT 07/09/2024 10:33 AM WRAPPER CASER STRM Blood (Blood, Venous) 07/09/2024 5:55 AM WRAPPER CASER 07/09/2024 10:33 AM WRAPPER CASER Janeth Rojas P.A.-C. LAB BLOOD BANK TEST ORDERAB LES Final Result Performing Organization Address [facility] Co de Phone Number [facility] [address] [place] [address], [facility] STRM [facility] [address] [place] [address] * Fructosamine (07/09/2024 5:55 AM WRAPPER CASER) [facility] Fructosamine, S 236 200 - 285 mcmol/L 07/09/2024 9:51 AM WRAPPER CASER DTL Blood (Blood, Venous) 07/09/2024 5:55 AM WRAPPER CASER 07/09/2024 9:23 AM WRAPPER CASER Christoph Arce APRN, C.N.P., D.N.P. LAB BL OOD ADD-ON Final Result Performing Organization Address City/[facility]/ZIP Co de Phone Number [facility] [address] [place] [address] * Thyroperoxidase (TPO) Antibodies (07/09/2024 5:55 AM WRAPPER CASER) Thyroperoxidase Ab, S <15.0 <34.0 IU/mL 07/09/2024 9:10 AM WRAPPER CASER DT Blood 07/09/2024 5:55 AM WRAPPER CASER 07/09/2024 8:39 AM WRAPPER CASER Janeth Rojas P.A.-C. LAB BLOOD ADD-ON Final Resu lt Performing Organization Address City/[facility]/ZIP Co de Phone Number [facility] [address] [place] [address] * (ABNORMAL) T3 (Triiodothyronine), Total (07/09/2024 5:55 AM WRAPPER CASER) T3 (Triiodothyroni ne), Total, S 79(L) 80 - 200 ng/dL 07/09/2024 9:10 AM WRAPPER CASER DT Blood 07/09/2024 5:55 AM WRAPPER CASER 07/09/2024 8:39 AM WRAPPER CASER us Janeth Rojas P.A.-C. LAB BLOOD ADD-ON Final Resu lt [facility] [address] [place] [address] * T4 (Thyroxine), Free (07/09/2024 5:55 AM WRAPPER CASER) T4 (Thyroxine), Free, S 1.3 0.9 - 1.7 ng/dL 07/09/2024 9:10 AM WRAPPER CASER DT Blood (Blood, Venous) 07/09/2024 5:55 AM WRAPPER CASER 07/09/2024 8:39 AM WRAPPER CASER us Janeth Rojas P.A.-C. LAB BLOOD ADD-ON Final Resu lt [facility] [address] [place] [address], [place] [facility] [facility] [address] [place] [address] * DX Chest AP or PA and Lateral 2 Views (07/08/2024 6:30 PM WRAPPER CASER) Anatomical Region Laterality Modality Chest, Thoracic RST LOS, Tho racic ARZ LOS, Thoracic FLA LOS N/A Digital Radiography Impressions 07/08/2024 7:13 PM WRAPPER CASER Since 03/16/2022, interval development of mild interlobular septal thickening, increased prominence of the pulmonary vasculature, increased enlargement of the cardiac silhouette size consistent with mild pulmonary edema. New right lower lobe airspace opacity and small right pleural effusion may represent a superimposed infectious/inflammatory process. Linear subsegmental left lower lobe atelectasis or scarring. Elevated right hemidiaphragm. Narrative 07/08/2024 7:13 PM WRAPPER CASER EXAM: DX CHEST AP OR PA AND [...] B-Type Natriuretic Peptide (BNP) (07/08/2024 5:20 PM WRAPPER CASER) [facility] NT-Pro BNP 7416(H) <=226 pg/mL 07/08/2024 6:21 PM WRAPPER CASER DT Comment: NT-proBNP values less than 300 [...] failure. Blood (Blood, Venous) 07/08/2024 5:20 PM WRAPPER CASER 07/08/2024 5:58 PM WRAPPER CASER Vanda Cruz APRN.N.Khushbu., M.S.N. LAB BLOOD ADD-ON Final Result Performing Organization Address City/[facility]/[place] [address] * Magnesium (07/08/2024 5:20 PM WRAPPER CASER) [facility] Magnesium, S 2.3 1.7 - 2.3 mg/dL 07/08/2024 6:21 PM WRAPPER CASER DT Blood (Blood, Venous) 07/08/2024 5:20 PM WRAPPER CASER 07/08/2024 5:58 PM WRAPPER CASER Lanette Solis APRN, Vanda.N.P., M.S.N. LAB BLOOD ADD-ON Final Result Performing Organization Address City/[facility]/[place] [address] * (ABNORMAL) Comprehensive Metabolic Panel (07/08/2024 5:20 PM WRAPPER CASER) [facility] Potassium, S 5.0 3.6 - 5.2 mmol/L 07/08/2024 6:21 PM WRAPPER CASER DTL Sodium, S 140 135 - 145 mmol/L 07/08/2024 6:21 PM WRAPPER CASER DTL Chloride, S 100 98 - 107 mmol/L 07/08/2024 6:21 PM WRAPPER CASER DTL Bicarbonate, S 28 22 - 29 mmol/L 07/08/2024 6:21 PM WRAPPER CASER DTL Anion Gap 12 7 - 15 07/08/2024 6:21 PM WRAPPER CASER DTL BUN (Blood Urea Nitrogen), S 40(H) 6 - 21 mg/dL 07/08/2024 6:21 PM WRAPPER CASER DTL Creatinine 1.30(H) 0.59 - 1.04 mg/dL 07/08/2024 6:21 PM WRAPPER CASER DTL Estimated GFR (eGFR) 48(L) >=60 mL/min/BS A 07/08/2024 6:21 PM WRAPPER CASER DTL Comment: Estimated GFR calculated using the 2020 CKD_EPI creatinine equation. Calcium, Total, S 8.5(L) 8.6 - 10.0 mg/dL 07/08/2024 6:21 PM WRAPPER CASER DTL Glucose, S 146(H) 70 - 140 mg/dL 07/08/2024 6:21 PM WRAPPER CASER DTL Protein, Total, S 5.6(L) 6.3 - 7.9 g/dL 07/08/2024 6:21 PM WRAPPER CASER DTL Albumin, S 3.9 3.5 - 5.0 g/dL 07/08/2024 6:21 PM WRAPPER CASER DTL Aspartate Aminotransferase (AST), S 49(H) 8 - 43 U/L 07/08/2024 6:21 PM WRAPPER CASER DTL Alkaline Phosphatase, S 267(H) 35 - 104 U/L 07/08/2024 6:21 PM WRAPPER CASER DTL Alanine Aminotransferase (ALT), S 42 7 - 45 U/L 07/08/2024 6:21 PM WRAPPER CASER DTL Bilirubin, Total, S 1.2 0.0 - 1.2 mg/dL 07/08/2024 6:21 PM WRAPPER CASER DTL Blood (Blood, Venous) 07/08/2024 5:20 PM WRAPPER CASER 07/08/2024 5:58 PM WRAPPER CASER us Lanette Solis APRN, C.N.P., M.S.N. LAB BLOOD ADD-ON Final Result Performing Organization Address City/[facility]/ZIP Co de Phone Number [facility] [address] [place] [address], [facility] [address] [place] [address] * (ABNORMAL) CBC without Differential (07/08/2024 5:20 PM WRAPPER CASER) Hemoglobin 6.8(L) 11.6 - 15.0 g/dL 07/08/2024 5:52 PM WRAPPER CASER DTL Hematocrit 22.4(L) 35.5 - 44.9 % 07/08/2024 5:52 PM WRAPPER CASER DTL Erythrocytes 2.44(L) 3.92 - 5.13 x10(12)/L 07/08/2024 5:52 PM WRAPPER CASER DTL MCV 91.8 78.2 - 97.9 fL 07/08/2024 5:52 PM WRAPPER CASER DTL RBC Distrib Width 23.1(H) 12.2 - 16.1 % 07/08/2024 5:52 PM WRAPPER CASER DTL Platelet Count 392(H) 157 - 371 x10(9)/L 07/08/2024 6:39 PM WRAPPER CASER DTL Comment:Results confirmed by smear, no clumping or interference seen. Leukocytes 32.3(H) 3.4 - 9.6 x10(9)/L 07/08/2024 6:39 PM WRAPPER CASER DTL Comment:Corrected for normob lasts. Blood (Blood, Venous) 07/08/2024 5:20 PM WRAPPER CASER 07/08/2024 5:43 PM WRAPPER CASER Lanette Solis APRN, C.N.P., M.S.N. LAB BLOOD ADD-ON Final Result Performing Organization Address City/[facility]/ZIP Co de Phone Number [facility] [address] [place] [address], [place] DTL [facility] [address] [place] [address] documented in this encounter Visit Diagnoses Diagnosis Hypertension Pulmonary (HCC)- Primary Decline Functional Status [R53.81] Hypertension Pulmonary (HCC) Dyspnea On Exertion Failure Heart Right (HCC) Pancytopenia (HCC) Regurgitation Tricuspid Fluid Overload Unspecified Hyperphosphatemia Myelofibrosis Primary (HCC) Splenomegaly Acquired Anxiety Insomnia Failure Heart Right (HCC) Edema Gastroesophageal Reflux Disease Anemia Of Chronic Disease Chronic Pain Syndrome Secondary Pulmonary Arterial Hypertension (HCC) Myelofibrosis (HCC) Dyspnea On Exertion Hypertension Pulmonary (HCC) Dyspnea On Exertion documented in this encounter Admitting Diagnoses Diagnosis Hypertension Pulmonary (HCC) Dyspnea On Exertion documented in this encounter Administered Medications Inactive Administered Medications - up to 3 most recent administrations Medication Order MAR Action Action Date Dose Rate Site acetaminophen tablet 1,000 mg (TylenoL) 1,000 mg, oral, Every 6 hours PRN, mild pain or score 1-3 of 10, fever, Notify sevjustin prior to first administration for fever, Starting on Fri07/08/24 at 1628 Given 07/15/2024 8:38 AM WRAPPER CASER 1,000 mg allopurinoL tablet 300 mg (Zyloprim) 300 mg, oral, Daily, First dose on Fri07/09/24 at 0900 Given 07/16/2024 8:08 AM WRAPPER CASER 300 mg Given 07/15/2024 8:38 AM WRAPPER CASER 300 mg Given 07/14/2024 8:42 AM WRAPPER CASER 300 mg chlorothiazide 250 mg in NaCl 0.9% IVPB (DiuriL) 250 mg, intravenous, at 240 mL/hr, Administer over 15 Minutes, Once, On Fri07/09/24 at 1300, For 1 dose New Bag 07/09/2024 1:23 PM WRAPPER CASER 250 mg 240 mL/hr chlorothiazide 250 mg in NaCl 0.9% IVPB (DiuriL) 250 mg, intravenous, at 240 mL/hr, Administer over 15 Minutes, Once, On Fri07/11/24 at 1215, For 1 dose New Bag 07/11/2024 12:50 PM WRAPPER CASER 250 mg 240 mL/hr chlorothiazide 500 mg in empty syringe IV syringe (DiuriL) 500 mg, intravenous, Once, On Fri07/12/24 at 1200, For 1 dose, IV push over 5 minutes Given 07/12/2024 12:08 PM WRAPPER CASER 500 mg furosemide 1 mg/mL in NaCl 0.9% 300 mL infusion (Lasix) 15 mg/hr (15 mL/hr), intravenous, Continuous, Starting on Arnua 07/08/24 at 1700, Do NOT refrigerate., Type: Do Not Titrate Rate/Dose Verify 07/11/2024 2:11 AM WRAPPER CASER 15 mg/hr 15 mL/hr Rate/Dose Verify 07/10/2024 7:00 PM WRAPPER CASER 15 mg/hr 15 mL/h r New Bag 07/10/2024 3:50 PM WRAPPER CASER 15 mg/hr 15 mL/hr furosemide 120 mg in NaCl 0.9% IVPB (Lasix) 120 mg, intravenous, at 124 mL/hr, Administer over 30 Minutes, Once, On Aruna 07/08/24 at 1700, For 1 dose, Adults: Doses less than 120 mg: IV push over 20 mg/minute. Doses 120 mg or greater: IVPB at 4 mg/minute. Peds/Neonates: Doses less than 120 mg over 0.5 mg/kg/minute. Doses 120 mg or greater: IVPB at 4 mg/minute. Do NOT refrigerate. New Bag 07/08/2024 5:35 PM WRAPPER CASER 120 mg 124 mL/hr furosemide 5 mg/mL in NaCl 0.9% 100 mL infusion (Lasix) 25 mg/hr (5 mL/hr), intravenous, Continuous, Starting on [place] 07/11/24 at 1215, Do NOT refrigerate., Type: Do Not Titrate Rate/Dose Verify 07/13/2024 7:00 AM WRAPPER CASER 25 mg/hr 5 mL/hr New Bag 07/13/2024 4:00 AM WRAPPER CASER 25 mg/hr 5 mL/hr Rate/Dose Verify 07/12/2024 7:00 PM WRAPPER CASER 25 mg/hr 5 mL/hr heparin (porcine) injection 5,000 Units 5,000 Units, subcutaneous, Every 8 hours scheduled, First dose on Aruna 07/08/24 at 1645 Given 07/08/2024 5:44 PM WRAPPER CASER 5,000 Units Left Upper Arm (Back ) heparin (porcine) injection 7,500 Units 7,500 Units, subcutaneous, Every 8 hours scheduled, First dose (after last modification) on [facility] 07/08/24 at 2300 Given 07/15/2024 7:03 AM WRAPPER CASER 7,500 Units Left Upper Arm (Back ) Given 07/14/2024 9:00 PM WRAPPER CASER 7,500 Units L eft Upper Arm (Back) Given 07/14/2024 2:56 PM WRAPPER CASER 7,500 Units L eft Lower Abdomen heparin (porcine) injection 7,500 Units 7,500 Units, subcutaneous, Every 8 hours scheduled, First dose (after last reorder) on Fri07/15/24 at 2200 Given 07/16/2024 4:23 AM WRAPPER CASER 7,500 Units Right Upper Arm (Back) Given 07/15/2024 11:00 PM WRAPPER CASER 7,500 Units Left Lower Abdomen hydroxyurea capsule 500 mg (Hydrea) 500 mg, oral, 2 times daily, First dose on Fri07/08/24 at 2100, HAZARDOUS - Handle with care. Swallow whole. Do NOT crush, chew or open capsule. Given 07/16/2024 8:08 AM WRAPPER CASER 500 mg Given 07/15/2024 8:23 PM WRAPPER CASER 500 mg Given 07/15/2024 8:38 AM WRAPPER CASER 500 mg hydrOXYzine tablet 50 mg (Atarax) 50 mg, oral, Every 6 hours PRN, itching, allergies, anxiety, Starting on Fri07/08/24 at 1643 Given 07/12/2024 12:12 PM WRAPPER CASER 50 mg Given 07/12/2024 2:44 AM WRAPPER CASER 50 mg Given 07/09/2024 2:27 PM WRAPPER CASER 50 mg medical cannabis tablet 2 tablet 2 tablet, oral, Every 8 hours PRN, pain, Starting on Fri07/08/24 at 1952, A patient specific Medical Cannabis (Patient's Own Supply) Controlled Substance Disposition and Inventory Record form [id number]) must be used to document placement of the product in storage, dose retrieval for administration and witnessed waste as applicable., THC component: (in mg): 10, CBD component: (in mg): 0, Indications: muscle spasm, painIndications:muscle spasm,pain Given 07/15/2024 11:08 PM WRAPPER CASER 2 tablets Given 07/15/2024 3:00 PM WRAPPER CASER 2 tablets Given 07/15/2024 4:56 AM WRAPPER CASER 2 tablets melatonin tablet 3 mg 3 mg, oral, Daily at bedtime, First dose on Fri07/12/24 at 2100 Given 07/15/2024 8:23 PM WRAPPER CASER 3 mg Given 07/14/2024 8:10 PM WRAPPER CASER 3 mg Given 07/13/2024 9:09 PM WRAPPER CASER 3 mg morphine ER tablet 30 mg (MS Contin) 30 mg, oral, 2 times daily, First dose on Aruna 07/08/24 at 1730, Swallow whole. Do NOT crush, chew, or split tablet. Given 07/10/2024 8:05 AM WRAPPER CASER 30 mg Given 07/09/2024 3:53 PM WRAPPER CASER 30 mg Given 07/09/2024 7:41 AM WRAPPER CASER 30 mg morphine ER tablet 30 mg (MS Contin) 30 mg, oral, 2 times daily, First dose (after last modification) on 07/10/24 at 1600, Swallow whole. Do NOT crush, chew, or split tablet. Given 07/16/2024 4:23 AM WRAPPER CASER 30 mg Given 07/15/2024 5:57 PM WRAPPER CASER 30 mg Given 07/15/2024 4:48 AM WRAPPER CASER 30 mg oxyCODONE IR tablet 5 mg (Roxicodone) 5 mg, oral, Every 6 hours PRN, moderate pain or score 4-6 of 10, Starting on Aruna 07/08/24 at 1708 Given 07/10/2024 5:57 AM WRAPPER CASER 5 mg Given 07/08/2024 5:30 PM WRAPPER CASER [address] tablet 40 mg (Protonix) 40 mg, oral, Daily before morning meal, First dose on Fri07/09/24 at 0700, pantoprazole 40 mg oral daily was interchanged for omeprazole 20 or 40 mg oral daily Swallow whole. Do NOT crush, chew, or split tablet. Given 07/16/2024 6:49 AM WRAPPER CASER 40 mg Given 07/15/2024 7:03 AM WRAPPER CASER 40 mg Given 07/14/2024 6:23 AM WRAPPER CASER 40 mg polyethylene glycol powder packet 17 g (Miralax) 17 g, oral, Daily PRN, constipation, Starting on 07/10/24 at 0842, Dissolve in 240 mLs (8 ounces) of water prior to giving. Avoid mixing with starch-based thickened liquids. sennosides tablet 17.2 mg (Senokot) 17.2 mg, oral, 2 times daily PRN, constipation, Starting on 07/10/24 at 0842 sildenafil tablet 20 mg (Revatio) 20 mg, oral, 3 times daily, First dose on Aruna 07/08/24 at 2100, For 22 days Given 07/16/2024 8:08 AM WRAPPER CASER 20 mg Given 07/15/2024 8:23 PM WRAPPER CASER 20 mg Given 07/15/2024 1:34 PM WRAPPER CASER 20 mg sodium chloride 0.9 % injection 3 mL 3 mL, intravenous, As needed, line care, Starting on Aruna 07/08/24 at 1628, Prior to and following infusion and between multiple consecutive infusions: sodium chloride 0.9 % injection Given 07/13/2024 9:18 PM WRAPPER CASER 3 mL sodium chloride 0.9 % injection 3 mL 3 mL, intravenous, Every 12 hours scheduled, First dose on Aruna 07/08/24 at 2100, Peripheral Intravenous Catheter and Rapid Infusion Catheter, when no infusion to maintain patency Given 07/16/2024 8: 09 AM WRAPPER CASER 3 mL Given 07/15/2024 8:23 PM WRAPPER CASER 3 mL Given 07/15/2024 8:43 AM WRAPPER CASER 3 mL torsemide tablet 60 mg (Demadex) 60 mg, oral, 2 times daily before morning and evening meals, First dose on Fri07/16/24 at 0700 Given 07/16/2024 6:49 AM WRAPPER CASER 60 mg torsemide tablet 80 mg (Demadex) 80 mg, oral, Once, On Aruna 07/15/24 at 1345, For 1 dose Given 07/15/2024 1:34 PM WRAPPER CASER 80 mg traZODone tablet 25 mg (DesyreL) 25 mg, oral, Daily at bedtime, First dose (after last modification) on Fri07/13/24 at 2100 Given 07/15/2024 8:23 PM WRAPPER CASER 25 mg Given 07/14/2024 8:10 PM WRAPPER CASER 25 mg Given 07/13/2024 9:09 PM WRAPPER CASER 25 mg traZODone tablet 50 mg (DesyreL) 50 mg, oral, Daily at bedtime, First dose on Fri07/12/24 at 2100 Given 07/12/2024 8:21 PM [facility] 50 mg documented in this encounter Active and Recently Administered Medications Times are shown in [facility]. Scheduled Medication Order 07/14/2024 07/15/2024 07/16/2024 allopurinoL tablet 300 mg (Zyloprim) 300 mg, oral, Daily, First dose on Fri07/09/24 at 0900 0842 (Given - Provider: CHARLEEN Graves, R.N.) 0838 (Given - Provider: Kamala Butler R.N.)1041 (MAR Hold - Provider: Transfer Provider, Automatic - Reason: Patient not available)1231 (MAR Unhold - Provider: Transfer Provider, Automatic) 0808 (Given - Provider: [place] Antonio R.N.) danazoL capsule 200 mg (Danocrine) 200 mg, oral, 2 times daily, First dose on Aruna 07/08/24 at 2100, On hold since 07/10/2024 at 0751 until manually unheld 0900 (Not Given - Provider: CHARLEEN Graves, R.N. - Reason: See Provider Order)2100 (Not Given - Provider: [place] Antonio R.N. - Reason: See Provider Order) 0900 (Not Given - Provider: Kamala Butler R.N. - Reason: See Provider Order)2100 (Not Given - Provider: Geneva Antonio R.N. - Reason: See Provider Order) 0900 (Not Given - Provider: Geneva Antonio R.N. - Reason: See Provider Order)1539 (Unheld by provider - Provider: Discharge Provider, Automatic) heparin (porcine) injection 7,500 Units (CANCELED) 7,500 Units, subcutaneous, Every 8 hours scheduled, First dose (after last modification) on Aruna 07/08/24 at 2300 0623 (Given - Provider: Sheridan Dorsey R.N.)1456 (Given - Provider: CHARLEEN Graves, R.N.)2100 (Given - Provider: Geneva Antonio RZahraaN.) 0703 (Given - Provider: Sheridan Dorsey RShirin.) heparin (porcine) injection 7,500 Units 7,500 Units, subcutaneous, Every 8 hours scheduled, First dose (after last reorder) on Aruna 07/15/24 at 2200 2300 (Given - Provider: Bean Mosquera R.N., [facility] 0423 (Given - Provider: Paulina Aguirre R.N.) hydroxyurea capsule 500 mg (Hydrea) 500 mg, oral, 2 times daily, First dose on Aruna 07/08/24 at 2100, HAZARDOUS - Handle with care. Swallow whole. Do NOT crush, chew or open capsule. 0842 (Given - Provider: CHARLEEN Graves, R.N.)2012 (Given - Provider: Geneva Antonio RZahraaN.) 0838 (Given - Provider: Kamala Butler R.N.)1041 ([facility] Hold - Provider: Transfer Provider, Automatic - Reason: Patient not available)1231 ([facility] Unhold - Provider: Transfer Provider, Automatic)2022 (Given - Provider: Bean Mosquera R.N., [facility], [facility] 0808 (Given - Provider: Geneva Antonio R.N.) melatonin tablet 3 mg 3 mg, oral, Daily at bedtime, First dose on 07/12/24 at 2100 2009 (Given - Provider: Geneva Antonio R.N.) 1041 ([facility] Hold - Provider: Transfer Provider, Automatic - Reason: Patient not available)1231 ([facility] Unhold - Provider: Transfer Provider, Automatic)2022 (Given - Provider: Bean Mosquera REstefania, [facility], [facility] morphine ER tablet 30 mg (MS Contin) 30 mg, oral, 2 times daily, First dose (after last modification) on 07/10/24 at 1600, Swallow whole. Do NOT crush, chew, or split tablet. 0447 (Given - Provider: Sheridan Dorsey R.N.)1619 (Given - Provider: CHARLEEN Graves, R.N.) 0448 (Given - Provider: Sheridan Dorsey RShriin.)1041 ([facility] Hold - Provider: Transfer Provider, Automatic - Reason: Patient not available)1231 ([facility] Unhold - Provider: Transfer Provider, Automatic)1757 (Given - Provider: eBan Mosquera R.N., [facility], [facility] 0423 (Given - Provider: Paulina Aguirre R.N.) pantoprazole DR tablet 40 mg (Protonix) 40 mg, oral, Daily before morning meal, First dose on Fri07/09/24 at 0700, pantoprazole 40 mg oral daily was interchanged for omeprazole 20 or 40 mg oral daily Swallow whole. Do NOT crush, chew, or split tablet. 0623 (Given - Provider: Sheridan L Tetrick, R.N.) 0703 (Given - Provider: Sheridan Dorsey R.N.)1041 ([facility] Hold - Provider: Transfer Provider, Automatic - Reason: Patient not available)1231 ([facility] Unhold - Provider: Transfer Provider, Automatic) 0649 (Given - Provider: Paulina Aguirre R.N.) sildenafil tablet 20 mg (Revatio) 20 mg, oral, 3 times daily, First dose on Aruna 07/08/24 at 2100, For 22 days 0842 (Given - Provider: CHARLEEN Graves, R.N.)1456 (Given - Provider: CHARLEEN Graves, R.N.)2009 (Given - Provider: Geneva Antonio R.N.) 0838 (Given - Provider: Kamala Butler R.N.)1041 ([facility] Hold - Provider: Transfer Provider, Automatic - Reason: Patient not available)1231 ([facility] Unhold - Provider: Transfer Provider, Automatic)1334 (Given - Provider: Joselin Baptiste R.N.)2022 (Given - Provider: Bean Mosquera REstefania, [facility], [facility] 0808 (Given - Provider: Geneva Antonio, R.N.) sodium chloride 0.9 % injection 3 mL 3 mL, intravenous, Every 12 hours scheduled, First dose on Aruna 07/08/24 at 2100, Peripheral Intravenous Catheter and Rapid Infusion Catheter, when no infusion to maintain patency 0847 (Given - Provider: CHARLEEN Graves, R.N.)2013 (Given - Provider: Geneva Antonio, R.N.) 0843 (Given - Provider: Kamala Butler R.N.)1041 ([facility] Hold - Provider: Transfer Provider, Automatic - Reason: Patient not available)1231 ([facility] Unhold - Provider: Transfer Provider, Automatic)2022 (Given - Provider: Bean Mosquera R.N., [facility], [facility] 0809 (Given - Provider: Geneva Antonio R.N.) torsemide tablet 60 mg (Demadex) 60 mg, oral, 2 times daily before morning and evening meals, First dose on Fri07/16/24 at 0700 0649 (Given - Provider: Paulina Aguirre R.N.) torsemide tablet 80 mg (Demadex) (COMPLETED) 80 mg, oral, Once, On Aruna 07/15/24 at 1345, For 1 dose 1334 (Given - Provider: Joselin Baptiste R.N.) traZODone tablet 25 mg (DesyreL) 25 mg, oral, Daily at bedtime, First dose (after last modification) on Fri07/13/24 at 2100 2010 (Given - Provider: Geneva Antonio R.N.) 1041 ([facility] Hold - Provider: Transfer Provider, Automatic - Reason: Patient not available)1231 ([facility] Unhold - Provider: Transfer Provider, Automatic)2022 (Given - Provider: Bean Mosquera R.N., [facility], [facility] PRN Medication Order 07/14/2024 07/15/2024 07/16/2024 acetaminophen tablet 1,000 mg (TylenoL) 1,000 mg, oral, Every 6 hours PRN, mild pain or score 1-3 of 10, fever, Notify sevice prior to first administration for fever, Starting on Aruna 07/08/24 at 1628 0838 (Given - Provider: Kamala Butler R.N.)1041 ([facility] Hold - Provider: Transfer Provider, Automatic - Reason: Patient not available)1231 ([facility] Unhold - Provider: Transfer Provider, Automatic) bisacodyL DR tablet 10 mg (Dulcolax) 10 mg, oral, Daily PRN, constipation, Starting on Aruna 07/08/24 at 1628, PO route preferred. Constipation unrelieved by docusate sodium (COLACE) if ordered. If results needed within 2 hours give rectal suppository if ordered. Swallow whole. Do NOT crush, chew, or split tablet. 1041 ([facility] Hold - Provider: Transfer Provider, Automatic - Reason: Patient not available)1231 ([facility] Unhold - Provider: Transfer Provider, Automatic) bisacodyL suppository 10 mg (Dulcolax) 10 mg, rectal, Daily PRN, constipation, Starting on Aruna 07/08/24 at 1628, PO route preferred. Constipation unrelieved by docusate sodium (COLACE) if ordered. If results needed within 2 hours - give rectal suppository. 1041 ([facility] Hold - Provider: Transfer Provider, Automatic - Reason: Patient not available)1231 ([facility] Unhold - Provider: Transfer Provider, Automatic) calcium carbonate chewable tablet 400 mg of calcium (Tums) 400 mg of calcium, oral, Every 2 hour PRN, indigestion, Not to exceed 12 tablets in 24 hours, Starting on Aruna 07/08/24 at 1628, Doses listed are in mg of elemental calcium. Take with food. 500 mg calcium carbonate contains 200 mg of elemental calcium. 1041 ([facility] Hold - Provider: Transfer Provider, Automatic - Reason: Patient not available)1231 ([facility] Unhold - Provider: Transfer Provider, Automatic) hydrOXYzine tablet 50 mg (Atarax) 50 mg, oral, Every 6 hours PRN, itching, allergies, anxiety, Starting on Aruna 07/08/24 at 1643 1041 ([facility] Hold - Provider: Transfer Provider, Automatic - Reason: Patient not available)1231 ([facility] Unhold - Provider: Transfer Provider, Automatic) lidocaine 10 mg/mL (1 %) injection (Xylocaine) (CANCELED) Code/trauma/sedation medication, Starting on Aruna 07/15/24 at 1104, Intraprocedure (CV) 1104 (Given - Provider: Murphy MccrayB.S.) medical cannabis tablet 2 tablet 2 tablet, oral, Every 8 hours PRN, pain, Starting on Aruna 07/08/24 at 1952, A patient specific Medical Cannabis (Patient's Own Supply) Controlled Substance Disposition and Inventory Record form [id number]) must be used to document placement of the product in storage, dose retrieval for administration and witnessed waste as applicable., THC component: (in mg): 10, CBD component: (in mg): 0, Indications: muscle spasm, pain 0242 (Given - Provider: Sheridan Dorsey R.N.)1140 (Given - Provider: CHARLEEN Graves, R.N.)2015 (Given - Provider: Geneva Antonio, R.N.) 0456 (Given - Provider: Sheridan Dorsey R.N.)1041 ([facility] Hold - Provider: Transfer Provider, Automatic - Reason: Patient not available)1231 ([facility] Unhold - Provider: Transfer Provider, Automatic)1500 (Given - Provider: Joselin Baptiste R.N.)2308 (Given - Provider: Bean Mosqeura R.N., [facility], [facility] oxyCODONE IR tablet 5 mg (Roxicodone) 5 mg, oral, Every 6 hours PRN, moderate pain or score 4-6 of 10, Starting on Aruna 24 at 1708 1041 ([facility] Hold - Provider: Transfer Provider, Automatic - Reason: Patient not available)1231 ([facility] Unhold - Provider: Transfer Provider, Automatic) polyethylene glycol powder packet 17 g (Miralax) 17 g, oral, Daily PRN, constipation, Starting on 07/10/24 at 0842, Dissolve in 240 mLs (8 ounces) of water prior to giving. Avoid mixing with starch-based thickened liquids. 1041 ([facility] Hold - Provider: Transfer Provider, Automatic - Reason: Patient not available)1231 ([facility] Unhold - Provider: Transfer Provider, Automatic) sennosides tablet 17.2 mg (Senokot) 17.2 mg, oral, 2 times daily PRN, constipation, Starting on 07/10/24 at 0842 1041 ([facility] Hold - Provider: Transfer Provider, Automatic - Reason: Patient not available)1231 ([facility] Unhold - Provider: Transfer Provider, Automatic) sodium chloride 0.9 % injection 10 mL 10 mL, intravenous, As needed, line care, Starting on Aruna 24 at 1628, Peripheral Intravenous Catheter and Rapid Infusion Catheter, prior to blood sampling, post blood transfusion or post blood sampling 1041 ([facility] Hold - Provider: Transfer Provider, Automatic - Reason: Patient not available)1231 ([facility] Unhold - Provider: Transfer Provider, Automatic) sodium chloride 0.9 % injection 3 mL 3 mL, intravenous, As needed, line care, Starting on Aruna 24 at 1628, Prior to and following infusion and between multiple consecutive infusions: sodium chloride 0.9 % injection 1041 ([facility] Hold - Provider: Transfer Provider, Automatic - Reason: Patient not available)1231 ([facility] Unhold - Provider: Transfer Provider, Automatic) documented in this encounter Additional Health Concerns Infection Onset Date Last Indicated Resolved Time COVID19 Pending 07/12/2024 07/12/2024 07/12/2024 1 :03 PM [employer] [facility] documented as of this encounter 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
--- OUTSIDE RECORDS SUMMARY | 2024-07-21 11:43 | XMS_ITS | Encounter Summary ---
Author Organization [facility] Address [address] [place] [id number] Care Team Providers Care Import/Export Specialist Name Role Phone Elsewhere, Pcp Primary Care Provider Unavailabl e Encounter Details Date Type Department Care Team (Latest Contact Info) Description 07/15/2024 10:13 AM ENERGY CONSERVATION REPRESENTATIVE - 07/15/2024 11:13 AM ENERGY CONSERVATION REPRESENTATIVE Surgery Division of Cardiovascular Diseases in [place], [place] [address] [place] [phone] Ritesh Ortiz M.D. [address] [place] [phone] HEART CATHETERIZATION - RIGHT Social History Tobacco Use Types Packs/Day Years Used Date Smoking Tobacco: Former Cigarettes 7 - 2012 Passive Smoke Exposure: Never Smokeless Tobacco: Never Comments:still smokes mariju shady Alcohol Use Standard Drinks/Week Comments Yes 0 (1 standard drink = 0.6 oz pur e alcohol) occasional [facility] Utilities Answer Date Recorded In the past [address] [employer], gas, oil, or water [employer] threatened to shut off services in your [...] your living situation today? I have a [facility] place to live 07/09/2024 Comments No Sex and Gender Information Value Date Recorded Sex Assigned at Female 07/24/2021 11:03 AM ENERGY CONSERVATION REPRESENTATIVE Legal Sex Female 9:12 PM ENERGY CONSERVATION REPRESENTATIVE Gender Identity Female 07/24/2021 11:03 AM ENERGY CONSERVATION REPRESENTATIVE Sexual Orientation Straight 07/24/2021 11 :03 AM ENERGY CONSERVATION REPRESENTATIVE documented as of this encounter Last Filed Vital Signs Vital Sign Reading Time Taken Comments Blood Pressure 97/53 07/15/2024 11:12 AM ENERGY CONSERVATION REPRESENTATIVE Pulse 82 07/15/2024 11:12 AM ENERGY CONSERVATION REPRESENTATIVE Temperature 37 C (98.6 F) 07/15/2024 8:30 AM ENERGY CONSERVATION REPRESENTATIVE Respiratory Rate 13 07/15/2024 9:30 AM ENERGY CONSERVATION REPRESENTATIVE Oxygen Saturation 91% 07/15/2024 11:12 AM ENERGY CONSERVATION REPRESENTATIVE Inhaled Oxygen Concentration - - Weight 135 kg (298 lb 11.6 oz) 07/15/2024 5:00 A M ENERGY CONSERVATION REPRESENTATIVE Height 171 cm (5' 7.32) 07/09/2024 12:52 PM ENERGY CONSERVATION REPRESENTATIVE Body Mass Index 46.51 07/09/2024 12:52 PM ENERGY CONSERVATION REPRESENTATIVE documented in this encounter Discharge Summaries * Jolene Vargas APRN, C.N.P. - 07/16/2024 10:29 AM CST CARDIOLOGY HOSPITAL DISCHARGE SUMMARY DATE OF ADMISSION: 07/08/2024 DATE OF DISCHARGE: 07/16/2024 Discharge Provider: Frankie Moreau M.D. Discharge Provider Team: RSHuyen CARD 5 PRINCIPAL DIAGNOSIS Hypertension Pulmonary (HCC) [...] Disease 08/10/2024 8:30 AM Isidro Zamarripa M.B., B.. Hematology 09/14/2024 12:00 PM LAB BLOOD [facility] Laboratory Medicine 09/14/2024 2:00 PM [...] DISCHARGE: Congestive heart failure diet consisting of 8983-5919 mg sodium, low cholesterol, low fat. No more than 1.5 to 2 liters (6-8 cups of total fluid) fluid restriction each day. No alcohol, (or discuss with physician). PRIMARY PROVIDER No care front desk team member to display Primary Care Providers: Elsewhere, Pcp (General) No address on file Primary Care Provider Phone Number: None Primary Care Provider Fax Number: None MARGIN CODE I personally spent total time of 45 minutes with >50% spent with counseling/coordination of care, independent from other providers on our team. GY CONSERVATION REPRESENTATIVE documented in this encounter Discharge Instructions * Discharge Instructions* Elyssa Mendoza - 07/09/2024 7:04 AM ENERGY CONSERVATION REPRESENTATIVE You were discharged from the RST CARD 5 Service. Please identify this service name if you call withquestions after hospitalization. GY CONSERVATION REPRESENTATIVE * Discharge Instr - Non [place] Follow-Ups* Elyssa Mendoza - 07/16/2024 7:37 AM ENERGY CONSERVATION REPRESENTATIVE * Take a copy of your dismissal paperwork with you to your appointments. * [place], [place] July 22, 2024: 9:00 AM - Post hospital follow-up visit with Meli Hernandez MD, primary care provider, at [facility]. RECOMMENDATIONS: * CBC * BMP [facility] [place], [place] You may have outpatient appointments at [facility] that changed during your hospitalization. Referto your [facility] Patient Appointment Guide (PAG) for the most current schedule of appointments and detailed instructions of tests / procedures. Call [phone] if you did not receive a PAG or need to CANCEL any [facility] appointment(s). GY CONSERVATION REPRESENTATIVE documented in this encounter Medications at Time [...] Bradford M.B.B.S. - 07/16/2024 1:08 PM CST [facility], [place], [place] Pulmonary Hypertension Consult SUBJECTIVE REFERRAL Matthew Mayes M.D. [address] [place] [address] CHIEF COMPLAINT / REASON FOR CONSULT Pulmonary [...] Matthew Mayes M.D. at 07/16/2024 5:01 PM ENERGY CONSERVATION REPRESENTATIVE GY CONSERVATION REPRESENTATIVE GY CONSERVATION REPRESENTATIVE * Sonia Amaro R.N. - 07/16/2024 9:02 AM CST SUBJECTIVE Discharge Planning OBJECTIVE Patient in room NT6 850 ASSESSMENT / PLAN ASSESSMENT Laceworker consulted for home O2 set up. Discussed companies available in patients area. She had no preferences so behavioral health case manager sent referrals to several companies in patient's home location. Patient is comfortable with homegoing plan with support from her PLAN Home oxygen will be provided by: Durable Medical Equipment - Admitted Since 07/08/2024 Service Provider Services Address Phone Fax Patient Preferred [facility] [place] [employer] [phone] -- Contact: Intake Portable tanks for [...] and DME justification prior to patient???s dismissal. Laceworker : - Will continue to follow. Ivanna Amaro R.N. 07/16/24 GY CONSERVATION REPRESENTATIVE GY CONSERVATION REPRESENTATIVE * Monica Floyd R.R.T. - 07/16/2024 7:58 AM CST 07/16/24 0740 Home Oxygen Assessment Rest/Awake Room Air SpO2 74 Percent Rest/Awake with Oxygen SpO2 90 (2 L oxygen via NC) Exercise/Activity with Oxygen SpO2 91 Percent (4 L oxygen) Pt demonstrates need for oxygen at rest and with activity. 2 L at rest and 4 l with activity via NC GY CONSERVATION REPRESENTATIVE * Mirella Mulligan R.R.T., L.R.T. - 07/16/2024 7:55 AM CST 07/16/24 0755 Nocturnal Oxygen Assessment Asleep Room Air SpO2 83 Percent Oxygen Flow Rate 3 L/min (via Nasal Cannula) Nocturnal oxygen assessment completed. Patient's SpO2 was at or below 88% for 5 minutes or greater.Any desaturations on trend lower than patient SpO2 is considered artifact. Electronically signed by: Mirella Mulligan R.R.T., L.R.T. 07/16/24 7:55 AM ENERGY CONSERVATION REPRESENTATIVE GY CONSERVATION REPRESENTATIVE * Isis Sy M.S., O.T., BCPR - 07/15/2024 4:14 PM CST 07/15/24 1613 Reason Therapy Missed Reason Therapy Missed Patient declined therapy Patient had recently returned from bathroom and reports fatigue declining activity with OT. Patientlater left room for heart cath. Will continue to follow and progress goals as able and appropriate. Isis Sy M.S., O.T., BCPR GY CONSERVATION REPRESENTATIVE * Sameer Reed PharmKathleen, R.Ph. - 07/15/2024 10:40 AM CST Pharmacist [...] is being followed and patient has their [place] medical cannabis registration. Policy: Medical Cannabis in Patient Care Procedure - [place] The use of cannabis without [place] medical cannabis registration is not supported. Ensure the proper Medical Cannabis form is being used: Controlled Substance Disposition and Inventory Record form [id number]). Chronic bone pain Consider scheduled senna in setting of chronic opioid use Sameer Reed Pharm.D., R.Ph. GY CONSERVATION REPRESENTATIVE * Stephen Vasquez P.A.-C. - 07/15/2024 7:22 [...] time. Based on RHC findings discussed with oim consultant, we will give torsemide 80 mg today and plan to transition to torsemide 60 mg b.i.d. starting tomorrow. We will also obtain overnight oximetry testing thisevening prior to potential discharge in the next 24-48 hours. Stephen Vasquez P.A.-C. 07/15/24 RST CARD 5 I personally spent a total 50 minutes providing and coordinating care today. GY CONSERVATION REPRESENTATIVE GY CONSERVATION REPRESENTATIVE * Shital Frank M.D., Pharm.D. - 07/14/2024 [...] Frank M.D., Pharm.D. Inpatient Heart failure Service GY CONSERVATION REPRESENTATIVE GY CONSERVATION REPRESENTATIVE * Juany Stover, P.T., D.P.T. - 07/13/2024 2:34 PM CST 07/13/24 7717 Reason Therapy Missed Reason Therapy Missed Patient [...] Will follow up as appropriate and able. GY CONSERVATION REPRESENTATIVE * Burak Bradford M.B.BZahraaS. - 07/13/2024 12:23 PM CST [place], [place] Pulmonary Hypertension Consult SUBJECTIVE REFERRAL Matthew Mayes M.D. [address] [place] [address] CHIEF COMPLAINT / REASON FOR CONSULT Pulmonary [...] & Screen Expiration 07/16/2024 23:59 Testing Location [place] Basic Metabolic Panel Collection Time: 07/13/24 9:45 [...] Ariel Armijo M.D. at 07/13/2024 12:45 PM ENERGY CONSERVATION REPRESENTATIVE GY CONSERVATION REPRESENTATIVE GY CONSERVATION REPRESENTATIVE * Shital Frank M.D., Pharm.D. - 07/13/2024 [...] Frank M.D., Pharm.D. Inpatient Heart failure Service GY CONSERVATION REPRESENTATIVE * Claudia Andrews APRN, C.N.P., D.N.P. - [...] ??C Heart Rate: [84-118] 112 Resp Rate: [-] 17 Blood Pressure: (90-112)/(41-67) 101/46 SpO2: [70 [...] Home - self care Claudia Andrews APRN, C.N.PZahraa, D.N.P. 07/13/24 RST CARD 5 GY CONSERVATION REPRESENTATIVE * Sulema Massey O.T.A. - 07/12/2024 3:03 PM CST 07/12/24 1503 Reason Therapy Missed Reason Therapy Missed Medical hold Hemoglobin is below therapeutic threshold 6.9 OT will follow up as able and appropriate to progressplan of care. GY CONSERVATION REPRESENTATIVE * Gabriela Colón RDN, LD, M.P.H. - [...] is not ordering meals with adequate calories. Coroner Forensic Technician asked if she reviewed the sodium education [...] % 7.4* GI Function:Last BM Date: 07/12/24, [place] Stool Chart: Type 5: Soft blobs with [...] to assess Estimated Needs: Total Calorie Needs: 4692-8962 calories/day Method to Estimate Energy Needs: Early-St Jeor (Basal to Basal + 20%) Weight [...] about patient's nutritional care please contact pager [phone] on weekdays 07:30-16:00 or [phone] on weekends/holidays ([facility]). GY CONSERVATION REPRESENTATIVE * Burak Bradford M.B.BZahraaS. - 07/12/2024 12:37 PM CST [place], [place] Pulmonary Hypertension Consult SUBJECTIVE REFERRAL Matthew Mayes M.D. [address] [place] [address] CHIEF COMPLAINT / REASON FOR CONSULT Pulmonary [...] Ariel Armijo M.D. at 07/12/2024 1:03 PM ENERGY CONSERVATION REPRESENTATIVE GY CONSERVATION REPRESENTATIVE GY CONSERVATION REPRESENTATIVE GY CONSERVATION REPRESENTATIVE * Shital Frank M.D., Pharm.D. - 07/12/2024 [...] Frank M.D., Pharm.D. Inpatient Heart failure Service GY CONSERVATION REPRESENTATIVE GY CONSERVATION REPRESENTATIVE * Janeth Rojas P.A.-C. - 07/12/2024 7:16 [...] Home - self care Janeth Rojas P.A.-C., #[id number] 07/12/24 RST CARD 5 I personally spent a total 50 minutes providing and coordinating care today. GY CONSERVATION REPRESENTATIVE GY CONSERVATION REPRESENTATIVE * Shital Frank M.D., Pharm.D. - 07/11/2024 [...] Frank M.D., Pharm.D. Inpatient Heart failure Service GY CONSERVATION REPRESENTATIVE GY CONSERVATION REPRESENTATIVE * Shital Frank M.D., Pharm.D. - 07/10/2024 [...] Frank M.D., Pharm.D. Inpatient Heart failure Service GY CONSERVATION REPRESENTATIVE GY CONSERVATION REPRESENTATIVE * Blanca Leal, PharmKathleen, R.Ph., [facility] - 07/10/2024 8:32 AM CST Pharmacist Progress [...] is being followed and patient has their [place] medical cannabis registration. Policy: Medical Cannabis in Patient Care Procedure - [place] The use of cannabis without [place] medical cannabis registration is not supported. Ensure the proper Medical Cannabis form is being used: Controlled Substance Disposition and Inventory Record form [id number]). Chronic bone pain Recommend starting scheduled senna since last bowel movement was 07/08 in setting of chronic opioiduse. Blanca Leal Pharm.D., R.Ph., BCPS GY CONSERVATION REPRESENTATIVE * Zeinab Fenton APRN, C.N.P., M.S.N. - [...] consult. Discussed plan with primary service. Pleasepage [phone] with any questions. GY CONSERVATION REPRESENTATIVE * Chrisotph Arce APRN C.N.PZahraa, D.N.P. - 07/09/2024 10:42 AM ENERGY CONSERVATION REPRESENTATIVE Associated Order(s): Diabetes consult (hospital) SUBJECTIVE Diabetes [...] lab work in care everywhere. According to [facility] Lab records random blood glucose during [...] Thank you for the consult. DCS pager [phone] will follow. Call primary service for diabetes concerns between 6:30 p.m. and 6:30 a.m. Primary service to contact television maintenance worker Endocrinology fellow via hospital fishing tool operator for questions. GY CONSERVATION REPRESENTATIVE * Cathi Bains, Shaun., R.Ph. - 07/09/2024 10:05 AM CST Pharmacist [...] is being followed and patient has their [place] medical cannabis registration. Policy: Medical Cannabis in Patient Care Procedure - [place] The use of cannabis without [place] medical cannabis registration is not supported. Ensure the proper Medical Cannabis form is being used: Controlled Substance Disposition and Inventory Record form [id number]). Cathi Bains, Shaun., R.Ph. GY CONSERVATION REPRESENTATIVE * Blanca Ballesteros P.T., D.P.T., CCS - 07/09/2024 9:45 AM CST Discussed with patient. She feels that she is moving better today then yesterday. Will check with patient on Friday to assess need for physical therapy as patient is moving in room due to medications. Blanca Ballesteros P.T., Haydee.P.T., CCS GY CONSERVATION REPRESENTATIVE * Shital Frank M.D., Pharm.D. - 07/09/2024 [...] Frank M.D., Pharm.D. Inpatient Heart failure Service [id number] GY CONSERVATION REPRESENTATIVE GY CONSERVATION REPRESENTATIVE * Janeth Rojas P.A.-C. - 07/09/2024 7:12 [...] Full Code Disposition: Uncertain Janeth Rojas P.A.-C., #[id number] 07/09/24 RST CARD 5 I personally spent a total 50 minutes providing and coordinating care today. GY CONSERVATION REPRESENTATIVE GY CONSERVATION REPRESENTATIVE documented in this encounter H&P Notes * Lanette Solis I., DANNY, C.N.P., M.S.N. - 07/08/2024 2:42 PM CST CARDIOLOGY INPATIENT ADMISSION NOTE CHIEF COMPLAINT/REASON FOR VISIT Acute on chronic high output heart failure Collaborating physician: Ludin Morneo M.D. Admitting service: RST CARD 5 HISTORY [...] (two) times a day. [DISCONTINUED] RX WELCOME [id number] ONLY, Welcome packet SOCIAL HISTORY reports that [...] Pantoprazole Code Status: Full Code Disposition: Ella oSlis APRN, C.N.P., M.S.N. 07/08/24 I personally spent a total of 90 minutes providing and coordinating care today. GY CONSERVATION REPRESENTATIVE GY CONSERVATION REPRESENTATIVE documented in this encounter Consult Notes * [...] - Pt was NPO this morning for RHC and she is hopeful for dismissal tomorrow. She was frustrated during visit today d/t being NPO, feeling dry in her room (had her shower running for humidity) and having the pulse oximeter on her finger. Education consult received for weight management. Pt has an appointment scheduled tomorrow in [place] [id number] with outpatient RDN. For now encouraged intakes of balancedmeals and adherence to low sodium diet - did not go into specifics though as pt was not up for it. Provided her with the following handouts to review to help her come up with questions/goals for outpatient appointment. Guidelines for controlling sodium (SV2638) and Eat well: use the plate method ([id number]). Briefly discussed reasoning for sodium restriction. - [...] GI Function:Last BM Date: 07/14/24 (Per patient), [place] Stool Chart: Type 5: Soft blobs with [...] Accumulation: Moderate-Severe Estimated Needs: Total Calorie Needs: 6621-2661 calories/day Method to Estimate Energy Needs: Early-St Jeor (Basal to Basal + 20%) Weight [...] about patient's nutritional care please contact pager [phone] on weekdays 07:30-16:00 or [phone] on weekends/holidays ([facility]). GY CONSERVATION REPRESENTATIVE * Blanca Ballesteros, P.T., Margaret, [facility] - 07/11/2024 10:09 AM CST Physical [...] 54 y.o. female who was admitted to [facility] in [place] on 07/08/2024 for Hypertension Pulmonary (HCC) [I27.20]. [...] Owned: No Assistive Device Adaptive Equipment Owned: [facility] Other DME Owned: Regular recliner (sleeps there) [...] than 10 minutes of activity Outcome Measures: [facility] Inpatient Short Form: -[facility] Basic Mobility (V.2) How much help from [...] 3-5 steps with a railing?: A Little -[facility] Basic Mobility (V.2) Raw Score: 22 -[facility] Basic Mobility (V.2) Standardized Score: 47.4 Interpretation: Based on scoring guidelines using the raw score value: Those going to home had an average score at or above 18 Those going to facility had an average score at or below 17 Clinicians answer the [facility] Inpatient Short Form based on observed patient activity and/or clinical judgment (patient can be scored without physically performing each activity) [facility] Highest Level of Mobility: Walk 25 feet or more-7 -[facility] scale is scored based on the highest [...] Assist/Cues Provided: none for GAIT: - Distance: [phone] meters - Assist Level:contact guard assistance of [...] Time (min): 25 min Blanca Ballesteros P.T., Haydee.P.TZahraa, CCS GY CONSERVATION REPRESENTATIVE GY CONSERVATION REPRESENTATIVE * Suyapa Conner M.SZahraa, RDN, LD - 07/09/2024 12:57 PM CSTAssociated [...] actually should be eating a day so life underwriter left Guidelines for controlling sodium booklet at [...] to assess Estimated Needs: Total Calorie Needs: 0625-6138 calories/day Method to Estimate Energy Needs: Early-St Jeor (Basal to Basal + 20%) Weight [...] about patient's nutritional care please contact pager [phone] on weekdays 07:30-16:00 or [phone] on weekends/holidays ([facility]). GY CONSERVATION REPRESENTATIVE * Burak Bradford M.B.B.S. - 07/09/2024 11:03 AM CSTAssociated Order(s): IP CONSULT TO CARDIOLOGY [facility], [place], [place] Pulmonary Hypertension Consult SUBJECTIVE REFERRAL Matthew Mayes M.D. [address] [place] [address] CHIEF COMPLAINT / REASON FOR CONSULT Pulmonary [...] Lanette Gomes M.D. at 07/09/2024 3:47 PM ENERGY CONSERVATION REPRESENTATIVE GY CONSERVATION REPRESENTATIVE GY CONSERVATION REPRESENTATIVE Associated attestation - Lanette Gomes M.D. - 07/09/2024 3:47 PM ENERGY CONSERVATION REPRESENTATIVE I saw and evaluated the patient, participating [...] - 07/09/2024 9:53 AM CST Occupational Therapy Acute Hospital Inpatient Evaluation/Treatment SUBJECTIVE Patient's Name: Jennifer HerndonZahraa Rinku Referring/Attending Provider: Shital Frank M.D. Reason for [...] 54 y.o. female who was admitted to [facility] in [place] on 07/08/2024 for Hypertension Pulmonary (HCC) [I27.20]. Relevant Medical History: 54 year old female that is being directly admitted for decompensated highoutput heart failure in the setting of pulmonary hypertension and severe tricuspid regurgitation. Precautions Other Precautions: Respiratory; Cardiac. Falls screen: Fall in the last 12 months: No Are you fearful of falling: No Pain Assessment: 12/21 chronic pain. Subjective Comments: Agreeable to therapy [...] Owned: No Assistive Device Adaptive Equipment Owned: [facility] Other DME Owned: Regular recliner (sleeps there) [...] Tolerates 10-20 minutes of activity Outcome Measures: [facility] Inpatient Short Form: Putting on and taking [...] at or below 17 Clinicians answer the [facility] Inpatient Short Form based on observed patient [...] (min): 23 min Starla Millard M.A., O.T. GY CONSERVATION REPRESENTATIVE * Sonia Amaro R.N. - 07/09/2024 9:23 AM CSTAssociated Order(s): IP CONSULT TO CARE MANAGEMENT Discharge Planning Assessment SUBJECTIVE Assessment Information Referral Data Referral Source: Early Screen for Discharge Planning Referral Name: [facility] 10 Referral Reason: Discharge Planning Previous Assessment: No Primary Language: Iranian Person(s) Present During Interview: patient History of [...] insurance: MEDICARE A AND B Secondary insurance: UCARE benefits: No Advance Directives Legal Decision Maker: Self Advance Directives Status: None on file Baseline Functional Status Baseline Activities of Daily Living Mobility: Independent Dressing: Needs assistance Feeding: Independent Bathing: Needs assistance Grooming: Independent Toileting: Needs assistance Behavior: Appropriate, Pleasant, Cooperative, Oriented Communication: Can write, Talks, Understands speaking, Understands Iranian Shopping: Needs assistance Medication Management: Needs assistance Who is managing your medication at home?: Spouse/Partner Housekeeping: Needs assistance Meal Prep: Needs assistance Assistive Devices: Eyeglasses Transportation: Support from family Baseline Services/Resources Primary care clinic and provider: No care front desk team member to display Additional Resources: Additional Services: NA Anticipated Needs Functional Status: Bathing, Dressing, Mobility Assistive Devices: Grab bars - wall, Oxygen, Tub/shower chair/bench Anticipated Modifications to the Patient's Home: None Transportation Needs: Support from family Does the patient need discharge transport arranged?: No Anticipated Discharge Destination: Home or Self Care Referrals Initiated: None fire hydrant operator provided Care Management Brochure ([id number]) and information regarding the dismissal process. ASSESSMENT / PLAN ASSESSMENT: The fire hydrant operator met with Jennifer Dobbs to discuss her current hospitalization and home going needs. The patient was unaccompanied. The patient was a reliable historian. The role of fire hydrant operator was reviewed. The patient reviewed her prior [...] Met with patient in room and discussed Laceworker role. Patient states she lives with her [...] shower chair and grab bars inher bathroom. Laceworker discussed options for home health care and she is open to this. PT/OT are going to assess her and Laceworker will continue to follow and provide resources. [...] medically ready. Support will be provided by Gian. fire hydrant operator recommendations include: home health services. Pending hospital course and medical readiness, no barriers to dismissal have been identified at this time. The following hospital-based consult orders and/or referrals placed or requested: None. PLAN: The patient agrees with the following plan. Patient's Anticipated Discharge Destination: Home or Self Care TBD-will have PT/OT consult. Poss. [facility] Transportation upon dismissal will be provided by family-- Gian . fire hydrant operator encouraged the patient to reach out with [...] come. Signed by: Ivanna Amaro R.N. 07/09/2024 GY CONSERVATION REPRESENTATIVE documented in this encounter Nursing Notes * [...] screening, we have the following recommendations: [] loss prevention auditor visit [x] Discuss with primary team (nursing) [...] education/support-primary team to place order [] Recommend [employer] consultation- primary nursing to place order [] Recommend social work/substance use consultation -primary team to place order [] Recommend outpatient psychiatric follow-up - primary team to place psychiatric consult order to coordinate [x] No acute psychiatric intervention needed; please reach out if questions or concerns. [] Other [place] [phone] with questions. Carmen Luna R.N. 07/16/2024 Cosigned by Sushila Bateman M.D. at 07/16/2024 2:11 PM ENERGY CONSERVATION REPRESENTATIVE GY CONSERVATION REPRESENTATIVE GY CONSERVATION REPRESENTATIVE Associated attestation - Sushila Bateman M.D. - 07/16/2024 2:11 PM ENERGY CONSERVATION REPRESENTATIVE Ms. Dobbs is a 54 y.o. female who was admitted on 07/08/2024 for Hypertension Pulmonary (HCC) [I27.20]. A member of the proactive Consultation-Liaison Psychiatry team (Margy Luna, HELENE) screened the contents of the electronic medical record of Ms. Dobbs using a standardized process to identify potential behavioral morbidity, and I had an opportunity to review the contents of the electronic medical record and discuss the case with Margy Luna RN, but did not personally examine Ms. Dobbs. Sushila Moore M.D. * Monserrat Wayne R.N., [facility] - 07/13/2024 5:42 AM CST Shift Goals: [...] remains free from fall/fall injury Outcome: Progressing GY CONSERVATION REPRESENTATIVE documented in this encounter Miscellaneous Notes * Hospital Course - Jolene Vargas APRN, C.N.P. - 07/08/2024 6:05 PM ENERGY CONSERVATION REPRESENTATIVE Mrs. Dobbs is 54year old female who [...] in stable condition to home on 07/16/24. GY CONSERVATION REPRESENTATIVE GY CONSERVATION REPRESENTATIVE GY CONSERVATION REPRESENTATIVE GY CONSERVATION REPRESENTATIVE GY CONSERVATION REPRESENTATIVE GY CONSERVATION REPRESENTATIVE GY CONSERVATION REPRESENTATIVE GY CONSERVATION REPRESENTATIVE GY CONSERVATION REPRESENTATIVE GY CONSERVATION REPRESENTATIVE GY CONSERVATION REPRESENTATIVE GY CONSERVATION REPRESENTATIVE GY CONSERVATION REPRESENTATIVE GY CONSERVATION REPRESENTATIVE GY CONSERVATION REPRESENTATIVE GY CONSERVATION REPRESENTATIVE GY CONSERVATION REPRESENTATIVE documented in this encounter Plan of Treatment Upcoming Encounters Date Type Department Care Team (Late st Contact Info) Description 08/10/2024 8:30 AM ENERGY CONSERVATION REPRESENTATIVE Telemedicine Division of Hematology in [place], [place] [address] [place] [phone] Isidro Zamarripa M.B., B.Ch. [address] [place] [phone] 08/26/2024 8:30 AM ENERGY CONSERVATION REPRESENTATIVE Appointment Department of Laboratory Medicine and Pathology, [facility] in [place], [place] [address] [place] [phone] Matthew Mayes M.D. [address] [place] [phone] 08/26/2024 9:00 AM ENERGY CONSERVATION REPRESENTATIVE Appointment Department of Cardiac Rehabilitation in [place], [place] [address] [place] [phone] Matthew Mayes M.D. [address] [place] [phone] 08/26/2024 11:00 AM ENERGY CONSERVATION REPRESENTATIVE Clinical Support Department of Nutrition and Diabetes Education in [place], [place] [address] [place] [phone] Matthew Mayes M.D. [address] [place] [phone] Karmen Zambrano, EVIEN, LD [address] [place] [phone] 08/27/2024 10:30 AM ENERGY CONSERVATION REPRESENTATIVE Office Visit Department of Cardiovascular Medicine in [place], [place] [address] [place] [phone] Matthew Mayes M.D. [address] [place] [phone] 09/14/2024 12:00 PM ENERGY CONSERVATION REPRESENTATIVE Appointment Department of Laboratory Medicine and Pathology, [facility], in [place], [place] [address] [place] [phone] Janusz Govea M.B.B.S. [address] [place] [phone] 09/14/2024 2:00 PM ENERGY CONSERVATION REPRESENTATIVE Office Visit Division of Hematology in [place], [place] [address] [place] [phone] Janusz Govea M.B.B.S. [address] [place] [phone] Pending Results Name Type Priority Associated Diagnoses Date /Time Prepare Red Blood Cells, 1 Units Blood Bank Routine 07/09/2024 5:55 AM ENERGY CONSERVATION REPRESENTATIVE Prepare Red Blood Cells, 1 Units Blood Bank Routine 07/09/2024 5:55 AM ENERGY CONSERVATION REPRESENTATIVE documented as of this encounter Procedures Procedure Name Priority Date/Time Associated Diagnosis Comments CBC WITHOUT DIFFERENTIAL, B Routine 07/16/2024 10:11 AM ENERGY CONSERVATION REPRESENTATIVE MAGNESIUM, S Routine 07/16/2024 10:10 AM ENERGY CONSERVATION REPRESENTATIVE BASIC METABOLIC PANEL, S/P Routine 07/16/2024 10:10 AM ENERGY CONSERVATION REPRESENTATIVE NOCTURNAL OXYGEN STUDY - RT Routine 07/15/2024 2:38 PM ENERGY CONSERVATION REPRESENTATIVE RT TO ARRANGE FOR HOME DME Routine 07/15/2024 2:38 PM ENERGY CONSERVATION REPRESENTATIVE CARDIAC CATHETERIZATION Routine 07/15/2024 11:51 AM ENERGY CONSERVATION REPRESENTATIVE Hypertension Pulmonary (HCC) Dyspnea On Exertion CARDIAC CATHETERIZATION Routine 07/15/2024 11:51 AM ENERGY CONSERVATION REPRESENTATIVE Hypertension Pulmonary (HCC) Dyspnea On Exertion ECHO - INTRAPROCEDURAL IMAGES ONLY Routine 07/15/2024 11:44 AM ENERGY CONSERVATION REPRESENTATIVE Failure Heart Right (HCC) ADULT OXYGEN THERAPY Routine 07/15/2024 8:01 AM ENERGY CONSERVATION REPRESENTATIVE MAGNESIUM, S Routine 07/15/2024 7:13 AM ENERGY CONSERVATION REPRESENTATIVE BASIC METABOLIC PANEL, S/P Routine 07/15/2024 7:13 AM ENERGY CONSERVATION REPRESENTATIVE CBC WITHOUT DIFFERENTIAL, B Routine 07/15/2024 7:12 AM ENERGY CONSERVATION REPRESENTATIVE ADULT OXYGEN THERAPY Routine 07/14/2024 8:00 PM ENERGY CONSERVATION REPRESENTATIVE CBC WITHOUT DIFFERENTIAL, B Routine 07/14/2024 9:32 AM ENERGY CONSERVATION REPRESENTATIVE CBC WITHOUT DIFFERENTIAL, B Routine 07/14/2024 9:32 AM ENERGY CONSERVATION REPRESENTATIVE MAGNESIUM, S Routine 07/14/2024 9:32 AM ENERGY CONSERVATION REPRESENTATIVE BASIC METABOLIC PANEL, S/P Routine 07/14/2024 9:32 AM ENERGY CONSERVATION REPRESENTATIVE ADULT OXYGEN THERAPY Routine 07/14/2024 8:00 AM ENERGY CONSERVATION REPRESENTATIVE ADULT OXYGEN THERAPY Routine 07/13/2024 8:01 PM ENERGY CONSERVATION REPRESENTATIVE CBC WITHOUT DIFFERENTIAL, B Routine 07/13/2024 9:45 AM ENERGY CONSERVATION REPRESENTATIVE MAGNESIUM, S Routine 07/13/2024 9:45 AM ENERGY CONSERVATION REPRESENTATIVE BASIC METABOLIC PANEL, S/P Routine 07/13/2024 9:45 AM ENERGY CONSERVATION REPRESENTATIVE TYPE AND SCREEN Routine 07/13/2024 9:44 AM ENERGY CONSERVATION REPRESENTATIVE ADULT OXYGEN THERAPY Routine 07/13/2024 8:01 AM ENERGY CONSERVATION REPRESENTATIVE ADULT OXYGEN THERAPY Routine 07/12/2024 8:01 PM ENERGY CONSERVATION REPRESENTATIVE BASIC METABOLIC PANEL, S/P Timed 07/12/2024 5:11 PM ENERGY CONSERVATION REPRESENTATIVE CBC WITHOUT DIFFERENTIAL, B Timed 07/12/2024 5:10 PM ENERGY CONSERVATION REPRESENTATIVE TRANSFUSE RED BLOOD CELLS Routine 07/12/2024 1:01 PM ENERGY CONSERVATION REPRESENTATIVE INFLUENZA A, B, RSV, PCR, RAPID, V Routine 07/12/2024 12:28 PM ENERGY CONSERVATION REPRESENTATIVE SARS CORONAVIRUS 2, PCR RAPID, V Routine 07/12/2024 12:28 PM ENERGY CONSERVATION REPRESENTATIVE GLUCOSE POCT, B Routine 07/12/2024 12:07 PM ENERGY CONSERVATION REPRESENTATIVE BACTERIA / RONIT CULTURE, BLOOD Routine 07/12/2024 12:01 PM ENERGY CONSERVATION REPRESENTATIVE BACTERIA / RONIT CULTURE, BLOOD Routine 07/12/2024 11:57 AM ENERGY CONSERVATION REPRESENTATIVE ADULT OXYGEN THERAPY Routine 07/12/2024 8:01 AM ENERGY CONSERVATION REPRESENTATIVE ECG Routine 07/12/2024 6:37 AM ENERGY CONSERVATION REPRESENTATIVE GLUCOSE POCT, B Routine 07/12/2024 6:30 AM ENERGY CONSERVATION REPRESENTATIVE LACTATE, B/P STAT 07/12/2024 5:02 AM ENERGY CONSERVATION REPRESENTATIVE CBC WITHOUT DIFFERENTIAL, B Routine 07/12/2024 4:52 AM ENERGY CONSERVATION REPRESENTATIVE MAGNESIUM, S Routine 07/12/2024 4:52 AM ENERGY CONSERVATION REPRESENTATIVE BASIC METABOLIC PANEL, S/P Routine 07/12/2024 4:52 AM ENERGY CONSERVATION REPRESENTATIVE GLUCOSE POCT, B Routine 07/11/2024 9:17 PM ENERGY CONSERVATION REPRESENTATIVE ADULT OXYGEN THERAPY Routine 07/11/2024 8:00 PM ENERGY CONSERVATION REPRESENTATIVE GLUCOSE POCT, B Routine 07/11/2024 4:37 PM ENERGY CONSERVATION REPRESENTATIVE GLUCOSE POCT, B Routine 07/11/2024 11:37 AM ENERGY CONSERVATION REPRESENTATIVE CBC WITHOUT DIFFERENTIAL, B Routine 07/11/2024 9:10 AM ENERGY CONSERVATION REPRESENTATIVE MAGNESIUM, S Routine 07/11/2024 9:10 AM ENERGY CONSERVATION REPRESENTATIVE BASIC METABOLIC PANEL, S/P Routine 07/11/2024 9:10 AM ENERGY CONSERVATION REPRESENTATIVE ADULT OXYGEN THERAPY Routine 07/11/2024 8:00 AM ENERGY CONSERVATION REPRESENTATIVE GLUCOSE POCT, B Routine 07/11/2024 6:22 AM ENERGY CONSERVATION REPRESENTATIVE GLUCOSE POCT, B Routine 07/10/2024 10:21 PM ENERGY CONSERVATION REPRESENTATIVE GLUCOSE POCT, B Routine 07/10/2024 9:53 PM ENERGY CONSERVATION REPRESENTATIVE ECG Routine 07/10/2024 8:40 PM ENERGY CONSERVATION REPRESENTATIVE ADULT OXYGEN THERAPY Routine 07/10/2024 8:00 PM ENERGY CONSERVATION REPRESENTATIVE GLUCOSE POCT, B Routine 07/10/2024 4:32 PM ENERGY CONSERVATION REPRESENTATIVE BASIC METABOLIC PANEL, S/P Timed 07/10/2024 3:27 PM ENERGY CONSERVATION REPRESENTATIVE GLUCOSE POCT, B Routine 07/10/2024 11:54 AM ENERGY CONSERVATION REPRESENTATIVE ADULT OXYGEN THERAPY Routine 07/10/2024 8:00 AM ENERGY CONSERVATION REPRESENTATIVE CBC WITHOUT DIFFERENTIAL, B Routine 07/10/2024 5:45 AM ENERGY CONSERVATION REPRESENTATIVE MAGNESIUM, S Routine 07/10/2024 5:45 AM ENERGY CONSERVATION REPRESENTATIVE BASIC METABOLIC PANEL, S/P Routine 07/10/2024 5:45 AM ENERGY CONSERVATION REPRESENTATIVE GLUCOSE POCT, B Routine 07/10/2024 5:43 AM ENERGY CONSERVATION REPRESENTATIVE GLUCOSE POCT, B Routine 07/09/2024 9:07 PM ENERGY CONSERVATION REPRESENTATIVE ADULT OXYGEN THERAPY Routine 07/09/2024 8:00 PM ENERGY CONSERVATION REPRESENTATIVE GLUCOSE POCT, B Routine 07/09/2024 5:12 PM ENERGY CONSERVATION REPRESENTATIVE CBC WITHOUT DIFFERENTIAL, B Timed 07/09/2024 3:58 PM ENERGY CONSERVATION REPRESENTATIVE BASIC METABOLIC PANEL, S/P Timed 07/09/2024 3:58 PM ENERGY CONSERVATION REPRESENTATIVE TRANSFUSE RED BLOOD CELLS Routine 07/09/2024 1:36 PM ENERGY CONSERVATION REPRESENTATIVE GLUCOSE POCT, B Routine 07/09/2024 12:03 PM ENERGY CONSERVATION REPRESENTATIVE (TTE) 2D ECHO DOPPLER COLOR Routine 07/09/2024 11:37 AM ENERGY CONSERVATION REPRESENTATIVE ADULT OXYGEN THERAPY Routine 07/09/2024 8:01 AM ENERGY CONSERVATION REPRESENTATIVE LIPID PANEL, S Routine 07/09/2024 6:00 AM ENERGY CONSERVATION REPRESENTATIVE SPSMA RESULT Routine 07/09/2024 6:00 AM ENERGY CONSERVATION REPRESENTATIVE CBC WITH DIFFERENTIAL, B Routine 07/09/2024 6:00 AM ENERGY CONSERVATION REPRESENTATIVE THYROID-STIMULATING HORMONE-SENSITIVE (S-TSH) Routine 07/09/2024 6:00 AM ENERGY CONSERVATION REPRESENTATIVE MAGNESIUM, S Routine 07/09/2024 6:00 AM ENERGY CONSERVATION REPRESENTATIVE HEMOGLOBIN A1C, B Routine 07/09/2024 6:0 0 AM ENERGY CONSERVATION REPRESENTATIVE COMPREHENSIVE METABOLIC PANEL, S/P Routine 07/09/2024 6:00 AM ENERGY CONSERVATION REPRESENTATIVE THYROPEROXIDASE (TPO) ABS, S Routine 07/09/2024 5:55 AM ENERGY CONSERVATION REPRESENTATIVE FRUCTOSAMINE, S/P Routine 07/09/2024 5:5 5 AM ENERGY CONSERVATION REPRESENTATIVE PREPARE RED BLOOD CELLS Routine 07/09/2024 5:55 AM ENERGY CONSERVATION REPRESENTATIVE PREPARE RED BLOOD CELLS Routine 07/09/2024 5:55 AM ENERGY CONSERVATION REPRESENTATIVE TYPE AND SCREEN Routine 07/09/2024 5:55 AM ENERGY CONSERVATION REPRESENTATIVE T3 (TRIIODOTHYRONINE), TOT, S Routine 07/09/2024 5:55 AM ENERGY CONSERVATION REPRESENTATIVE T4 (THYROXINE), FREE, S Routine 07/09/2024 5:55 AM ENERGY CONSERVATION REPRESENTATIVE ADULT OXYGEN THERAPY Routine 07/08/2024 8:00 PM ENERGY CONSERVATION REPRESENTATIVE DX CHEST AP OR PA AND LATERAL 2 VIEWS RAD - Routine (most inpatients and all outpatients) 07/08/2024 6:30 PM ENERGY CONSERVATION REPRESENTATIVE NT-PRO B-TYPE NATRIURETIC PEPTIDE (BNP), S Routine 07/08/2024 5:20 PM ENERGY CONSERVATION REPRESENTATIVE CBC WITHOUT DIFFERENTIAL, B Routine 07/08/2024 5:20 PM ENERGY CONSERVATION REPRESENTATIVE MAGNESIUM, S Routine 07/08/2024 5:20 PM ENERGY CONSERVATION REPRESENTATIVE COMPREHENSIVE METABOLIC PANEL, S/P Routine 07/08/2024 5:20 PM ENERGY CONSERVATION REPRESENTATIVE ADULT OXYGEN THERAPY Routine 07/08/2024 4:29 PM ENERGY CONSERVATION REPRESENTATIVE ADULT OXYGEN THERAPY Routine 07/08/2024 4:29 PM ENERGY CONSERVATION REPRESENTATIVE ADULT OXYGEN THERAPY Routine 07/08/2024 4:29 PM ENERGY CONSERVATION REPRESENTATIVE documented in this encounter Results * (ABNORMAL) CBC without Differential (07/16/2024 10:11 AM ENERGY CONSERVATION REPRESENTATIVE) [facility] Hemoglobin 7.2(L) 11.6 - 15.0 g/dL 07/16/2024 10:48 AM ENERGY CONSERVATION REPRESENTATIVE DTL Hematocrit 23.5(L) 35.5 - 44.9 % 07/16/2024 10:48 AM ENERGY CONSERVATION REPRESENTATIVE DTL Erythrocytes 2.45(L) 3.92 - 5.13 x10(12)/L 07/16/2024 10:48 AM ENERGY CONSERVATION REPRESENTATIVE DTL MCV 95.9 78.2 - 97.9 fL 07/16/2024 10:48 AM ENERGY CONSERVATION REPRESENTATIVE DTL RBC Distrib Width 21.4(H) 12.2 - 16.1 % 07/16/2024 10:48 AM ENERGY CONSERVATION REPRESENTATIVE DTL Platelet Count 306 157 - 371 x10(9)/L 07/16/2024 10:48 AM ENERGY CONSERVATION REPRESENTATIVE DTL Leukocytes 24.5(H) 3.4 - 9.6 x10(9)/L 07/16/2024 11:26 AM ENERGY CONSERVATION REPRESENTATIVE DTL Comment:Corrected for normob lasts. Blood (Blood, Venous) 07/16/2024 10:11 AM ENERGY CONSERVATION REPRESENTATIVE 07/16/2024 10:41 AM ENERGY CONSERVATION REPRESENTATIVE Claudia Andrews APRN, C.N.P., D.N.P. LAB BLOOD A DD-ON Final Result Performing Organization Address [facility] Co de Phone Number [facility] [address] 200 [place] [address] * (ABNORMAL) Magnesium (07/16/2024 10:10 AM ENERGY CONSERVATION REPRESENTATIVE) Magnesium, S 2.9(H) 1.7 - 2.3 mg/dL 07/16/2024 11:17 AM ENERGY CONSERVATION REPRESENTATIVE DTL Blood (Blood, Venous) 07/16/2024 10:10 AM ENERGY CONSERVATION REPRESENTATIVE 07/16/2024 10:57 AM ENERGY CONSERVATION REPRESENTATIVE Claudia Andrews APRN, C.N.P., D.N.P. LAB BLOOD A DD-ON Final Result Performing Organization Address [facility] Co de Phone Number [facility] [address] [place] [address] * (ABNORMAL) Basic Metabolic Panel (07/16/2024 10:10 AM ENERGY CONSERVATION REPRESENTATIVE) Potassium, S 4.6 3.6 - 5.2 mmol/L 07/16/2024 11:17 AM ENERGY CONSERVATION REPRESENTATIVE DTL Sodium, S 142 135 - 145 mmol/L 07/16/2024 11:17 AM ENERGY CONSERVATION REPRESENTATIVE DTL Chloride, S 97(L) 98 - 107 mmol/L 07/16/2024 11:17 AM ENERGY CONSERVATION REPRESENTATIVE DTL Bicarbonate, S 34(H) 22 - 29 mmol/L 07/16/2024 11:17 AM ENERGY CONSERVATION REPRESENTATIVE DTL Anion Gap 11 7 - 15 07/16/2024 11:17 AM ENERGY CONSERVATION REPRESENTATIVE DTL BUN (Blood Urea Nitrogen), S 70(H) 6 - 21 mg/dL 07/16/2024 11:17 AM ENERGY CONSERVATION REPRESENTATIVE DTL Creatinine 1.65(H) 0.59 - 1.04 mg/dL 07/16/2024 11:17 AM ENERGY CONSERVATION REPRESENTATIVE DTL Estimated GFR (eGFR) 36(L) >=60 mL/min/BSA 07/16/2024 11:17 AM ENERGY CONSERVATION REPRESENTATIVE DTL Comment: Estimated GFR calculated using the 2020 CKD_EPI creatinine equation. Calcium, Total, S 8.8 8.6 - 10.0 mg/dL 07/16/2024 11:17 AM ENERGY CONSERVATION REPRESENTATIVE DTL Glucose, S 152(H) 70 - 140 mg/dL 07/16/2024 11:17 AM ENERGY CONSERVATION REPRESENTATIVE DTL Blood (Blood, Venous) 07/16/2024 10:10 AM ENERGY CONSERVATION REPRESENTATIVE 07/16/2024 10:57 AM ENERGY CONSERVATION REPRESENTATIVE us Claudia Andrews APRN, C.N.P., D.N.P. LAB BLOOD A DD-ON Final Result [facility] 200 [place] [address], [facility] 200 [place] [address] * RIGHT HEART CATHETERIZATION, NITRIC OXIDE STUDY (07/15/2024 11:51 AM ENERGY CONSERVATION REPRESENTATIVE) Anatomical Region Laterality Modality X-Ray Angiograph y 07/15/2024 10:5 7 AM ENERGY CONSERVATION REPRESENTATIVE Narrative 07/16/2024 5:48 AM ENERGY CONSERVATION REPRESENTATIVE For the complete report, see the Order-Level [...] reveal a step-up to suggest a significant kpou-pj-eavgt intracardiac shunt. Agitated saline study did not show any hrapb-lf-bequ shunt. NITRIC OXIDE 80 PPM (+4L NC [...] not reveal a step-up to suggest a ivvrkyizsrwqvmn-rt-ouubx intracardiac shunt. Agitated saline study did not show ufyslmot-ge-ozne shunt. NITRIC OXIDE 80 PPM (+4L NC [...] - Intraprocedural Images Only (07/15/2024 11:44 AM ENERGY CONSERVATION REPRESENTATIVE) Claudia Andrews APRN, C.N.P., D.N.P. CV ECHO PRO CEDURES Final Result [facility] EIMS NA * (ABNORMAL) Magnesium (07/15/2024 7:13 AM ENERGY CONSERVATION REPRESENTATIVE) Pathologist [facility] Magnesium, S 3.0(H) 1.7 - 2.3 mg/dL 07/15/2024 8:08 AM ENERGY CONSERVATION REPRESENTATIVE DTL Blood (Blood, Venous) 07/15/2024 7:13 AM ENERGY CONSERVATION REPRESENTATIVE 07/15/2024 7:49 AM ENERGY CONSERVATION REPRESENTATIVE Claudia Andrews APRN, C.N.P., D.N.P. LAB BLOOD A DD-ON Final Result [facility] [address] [place] [address], [place] [facility] [address] [place] [address] * (ABNORMAL) Basic Metabolic Panel (07/15/2024 7:13 AM ENERGY CONSERVATION REPRESENTATIVE) Pathologist [facility] Potassium, S 4.9 3.6 - 5.2 mmol/L 07/15/2024 8:08 AM ENERGY CONSERVATION REPRESENTATIVE DTL Sodium, S 143 135 - 145 mmol/L 07/15/2024 8:08 AM ENERGY CONSERVATION REPRESENTATIVE DTL Chloride, S 98 98 - 107 mmol/L 07/15/2024 8:08 AM ENERGY CONSERVATION REPRESENTATIVE DTL Bicarbonate, S 36(H) 22 - 29 mmol/L 07/15/2024 8:08 AM ENERGY CONSERVATION REPRESENTATIVE DTL Anion Gap 9 7 - 15 07/15/2024 8:08 AM ENERGY CONSERVATION REPRESENTATIVE DTL BUN (Blood Urea Nitrogen), S 73(H) 6 - 21 mg/dL 07/15/2024 8:08 AM ENERGY CONSERVATION REPRESENTATIVE DTL Creatinine 1.69(H) 0.59 - 1.04 mg/dL 07/15/2024 8:08 AM ENERGY CONSERVATION REPRESENTATIVE DTL Estimated GFR (eGFR) 35(L) >=60 mL/min/BSA 07/15/2024 8:08 AM ENERGY CONSERVATION REPRESENTATIVE DTL Comment: Estimated GFR calculated using the 2020 CKD_EPI creatinine equation. Calcium, Total, S 8.8 8.6 - 10.0 mg/dL 07/15/2024 8:08 AM ENERGY CONSERVATION REPRESENTATIVE DTL Glucose, S 130 70 - 140 mg/dL 07/15/2024 8:08 AM ENERGY CONSERVATION REPRESENTATIVE DTL Blood (Blood, Venous) 07/15/2024 7:13 AM ENERGY CONSERVATION REPRESENTATIVE 07/15/2024 7:49 AM ENERGY CONSERVATION REPRESENTATIVE Claudia Andrews APRN, C.N.P., D.N.P. LAB BLOOD A DD-ON Final Result [facility] [address] [place] [address], [facility] [address] [place] [address] * (ABNORMAL) CBC without Differential (07/15/2024 7:12 AM ENERGY CONSERVATION REPRESENTATIVE) Hemoglobin 7.3(L) 11.6 - 15.0 g/dL 07/15/2024 7:53 AM ENERGY CONSERVATION REPRESENTATIVE DTL Hematocrit 23.8(L) 35.5 - 44.9 % 07/15/2024 7:53 AM ENERGY CONSERVATION REPRESENTATIVE DTL Erythrocytes 2.57(L) 3.92 - 5.13 x10(12)/L 07/15/2024 7:53 AM ENERGY CONSERVATION REPRESENTATIVE DTL MCV 92.6 78.2 - 97.9 fL 07/15/2024 7:53 AM ENERGY CONSERVATION REPRESENTATIVE DTL RBC Distrib Width 21.3(H) 12.2 - 16.1 % 07/15/2024 7:53 AM ENERGY CONSERVATION REPRESENTATIVE DTL Platelet Count 316 157 - 371 x10(9)/L 07/15/2024 7:53 AM ENERGY CONSERVATION REPRESENTATIVE DTL Leukocytes 26.5(H) 3.4 - 9.6 x10(9)/L 07/15/2024 9:25 AM ENERGY CONSERVATION REPRESENTATIVE DTL Comment:Corrected for normob lasts. Blood (Blood, Venous) 07/15/2024 7:12 AM ENERGY CONSERVATION REPRESENTATIVE 07/15/2024 7:38 AM ENERGY CONSERVATION REPRESENTATIVE Claudia Andrews APRN, C.N.P., D.N.P. LAB BLOOD A DD-ON Final Result [facility] [address] [place] [address], [facility] [address] [place] [address] * (ABNORMAL) CBC without Differential (07/14/2024 9:32 AM ENERGY CONSERVATION REPRESENTATIVE) Hemoglobin 7.3(L) 11.6 - 15.0 g/dL 07/14/2024 10:42 AM ENERGY CONSERVATION REPRESENTATIVE DTL Comment:REVISED RESULTS Hematocrit 23.4(L) 35.5 - 44.9 % 07/14/2024 10:42 AM ENERGY CONSERVATION REPRESENTATIVE DTL Comment:REVISED RESULTS Erythrocytes 2.52(L) 3.92 - 5.13 x10(12)/L 07/14/2024 10:42 AM ENERGY CONSERVATION REPRESENTATIVE DTL Comment:REVISED RESULTS MCV 92.9 78.2 - 97.9 fL 07/14/2024 10:42 AM ENERGY CONSERVATION REPRESENTATIVE DTL Comment:REVISED RESULTS RBC Distrib Width 21.3(H) 12.2 - 16.1 % 07/14/2024 10:42 AM ENERGY CONSERVATION REPRESENTATIVE DTL Comment:REVISED RESULTS Platelet Count 337 157 - 371 x10(9)/L 07/14/2024 10:42 AM ENERGY CONSERVATION REPRESENTATIVE DT Comment:REVISED RESULTS Leukocytes 28.2(H) 3.4 - 9.6 x10(9)/L 07/14/2024 11:22 AM ENERGY CONSERVATION REPRESENTATIVE [facility] Comment:Corrected for normob lasts Blood 07/14/2024 9:32 AM ENERGY CONSERVATION REPRESENTATIVE 07/14/2024 10:42 AM ENERGY CONSERVATION REPRESENTATIVE Stephen Vasquez P.A.-C. LAB BLOOD ADD-ON Final Res ult Performing Organization Address City/[facility]/ZIP Co de Phone Number [facility] 200 [place] [address], [facility] [address] [place] [address] * (ABNORMAL) Magnesium (07/14/2024 9:32 AM ENERGY CONSERVATION REPRESENTATIVE) Pathologist [facility] Magnesium, S 2.9(H) 1.7 - 2.3 mg/dL 07/14/2024 10:42 AM ENERGY CONSERVATION REPRESENTATIVE DTL Blood (Blood, Venous) 07/14/2024 9:32 AM ENERGY CONSERVATION REPRESENTATIVE 07/14/2024 10:42 AM ENERGY CONSERVATION REPRESENTATIVE Stephen Vasquez P.A.-C. LAB BLOOD ADD-ON Final Res ult Performing Organization Address City/[facility]/ZIP Co de Phone Number [facility] [address] [place] [address], [facility] 200 [place] [address] * CBC without Differential (07/14/2024 9:32 AM ENERGY CONSERVATION REPRESENTATIVE) Hemoglobin CANCELED 11.6 - 15.0 g/dL 07/14/2024 11:13 AM ENERGY CONSERVATION REPRESENTATIVE [facility] Comment: REVISED RESULTS ----PREVIOUSLY REPORTED ---- 7.3 g/dL Flagged as: Abnormal_Low (Reported 07/14/2024 09:42) Hematocrit CANCELED 35.5 - 44.9 % 07/14/2024 11:13 AM ENERGY CONSERVATION REPRESENTATIVE DTL Comment: REVISED RESULTS ----PREVIOUSLY REPORTED ---- 23.4 % Flagged as: Abnormal_Low (Reported 07/14/2024 09:42) Erythrocytes CANCELED 3.92 - 5.13 x10(12)/L 07/14/2024 11:13 AM ENERGY CONSERVATION REPRESENTATIVE DTL Comment: REVISED RESULTS ----PREVIOUSLY REPORTED ---- 2.52 x10(12)/L Flagged as: Abnormal_Low (Reported 07/14/2024 09:42) MCV CANCELED 78.2 - 97.9 fL 07/14/2024 11:13 AM ENERGY CONSERVATION REPRESENTATIVE DTL Comment: REVISED RESULTS ----PREVIOUSLY REPORTED ---- 92.9 fL Flagged as: Normal (Reported 07/14/2024 09:42) RBC Distrib Width CANCELED 12.2 - 16.1 % 07/14/2024 11:13 AM ENERGY CONSERVATION REPRESENTATIVE DTL Comment: REVISED RESULTS ----PREVIOUSLY REPORTED ---- 21.3 % Flagged as: Abnormal_High (Reported 07/14/2024 09:42) Platelet Count CANCELED 157 - 371 x10(9)/L 07/14/2024 11:13 AM ENERGY CONSERVATION REPRESENTATIVE DTL Comment: REVISED RESULTS ----PREVIOUSLY REPORTED ---- 337 x10(9)/L Flagged as: Normal (Reported 07/14/2024 09:42) Leukocytes CANCELED 07/14/2024 11:13 AM ENERGY CONSERVATION REPRESENTATIVE [facility] Comment:Result canceled by [facility]. Blood (Blood, Venous) 07/14/2024 9:32 AM ENERGY CONSERVATION REPRESENTATIVE 07/14/2024 10:42 AM ENERGY CONSERVATION REPRESENTATIVE Narrative [facility] - 07/14/2024 11:13 AM ENERGY CONSERVATION REPRESENTATIVE CBC without Differential was cancelled on 07/14/2024 at 10:13; Duplicate test request. !CNCL! us Stephen Vasquez P.A.-C. LAB BLOOD ADD-ON Edited Re delfin - Final [facility] [address] [place] [address], [facility] [address] [place] [address] [facility] [address] [place] [address] * (ABNORMAL) Basic Metabolic Panel (07/14/2024 9:32 AM ENERGY CONSERVATION REPRESENTATIVE) Potassium, S 5.0 3.6 - 5.2 mmol/L 07/14/2024 10:42 AM ENERGY CONSERVATION REPRESENTATIVE DTL Sodium, S 139 135 - 145 mmol/L 07/14/2024 10:42 AM ENERGY CONSERVATION REPRESENTATIVE DTL Chloride, S 95(L) 98 - 107 mmol/L 07/14/2024 10:42 AM ENERGY CONSERVATION REPRESENTATIVE DTL Bicarbonate, S 32(H) 22 - 29 mmol/L 07/14/2024 10:42 AM ENERGY CONSERVATION REPRESENTATIVE DTL Anion Gap 12 7 - 15 07/14/2024 10:42 AM ENERGY CONSERVATION REPRESENTATIVE DTL BUN (Blood Urea Nitrogen), S 80(H) 6 - 21 mg/dL 07/14/2024 10:42 AM ENERGY CONSERVATION REPRESENTATIVE DTL Creatinine 1.96(H) 0.59 - 1.04 mg/dL 07/14/2024 10:42 AM ENERGY CONSERVATION REPRESENTATIVE DTL Estimated GFR (eGFR) 29(L) >=60 mL/min/BSA 07/14/2024 10:42 AM ENERGY CONSERVATION REPRESENTATIVE DTL Comment: Estimated GFR calculated using the 2020 CKD_EPI creatinine equation. Calcium, Total, S 8.5(L) 8.6 - 10.0 mg/dL 07/14/2024 10:42 AM ENERGY CONSERVATION REPRESENTATIVE DTL Glucose, S 124 70 - 140 mg/dL 07/14/2024 10:42 AM ENERGY CONSERVATION REPRESENTATIVE DTL Blood (Blood, Venous) 07/14/2024 9:32 AM ENERGY CONSERVATION REPRESENTATIVE 07/14/2024 10:42 AM ENERGY CONSERVATION REPRESENTATIVE us Stephen Vasquez P.A.-C. LAB BLOOD ADD-ON Final Res ult [facility] [address] [place] [address], [facility] DTL [facility] [address] [place] [address] * (ABNORMAL) Magnesium (07/13/2024 9:45 AM ENERGY CONSERVATION REPRESENTATIVE) Pathologist [facility] Magnesium, S 2.8(H) 1.7 - 2.3 mg/dL 07/13/2024 10:45 AM ENERGY CONSERVATION REPRESENTATIVE DTL Blood (Blood, Venous) 07/13/2024 9:45 AM ENERGY CONSERVATION REPRESENTATIVE 07/13/2024 10:24 AM ENERGY CONSERVATION REPRESENTATIVE Stephen Vasquez P.A.-C. LAB BLOOD ADD-ON Final Res ult Performing Organization Address [facility] de Phone Number [facility] [address] [place] [address], [facility] DTL [facility] [address] [place] [address] * (ABNORMAL) CBC without Differential (07/13/2024 9:45 AM ENERGY CONSERVATION REPRESENTATIVE) [facility] Hemoglobin 7.3(L) 11.6 - 15.0 g/dL 07/13/2024 10:21 AM ENERGY CONSERVATION REPRESENTATIVE DTL Hematocrit 22.7(L) 35.5 - 44.9 % 07/13/2024 10:21 AM ENERGY CONSERVATION REPRESENTATIVE DTL Erythrocytes 2.48(L) 3.92 - 5.13 x10(12)/L 07/13/2024 10:21 AM ENERGY CONSERVATION REPRESENTATIVE DTL MCV 91.5 78.2 - 97.9 fL 07/13/2024 10:21 AM ENERGY CONSERVATION REPRESENTATIVE DTL RBC Distrib Width 21.1(H) 12.2 - 16.1 % 07/13/2024 10:21 AM ENERGY CONSERVATION REPRESENTATIVE DTL Platelet Count 330 157 - 371 x10(9)/L 07/13/2024 10:21 AM ENERGY CONSERVATION REPRESENTATIVE DTL Leukocytes 29.2(H) 3.4 - 9.6 x10(9)/L 07/13/2024 11:04 AM ENERGY CONSERVATION REPRESENTATIVE DTL Comment:Corrected for normob lasts. Blood (Blood, Venous) 07/13/2024 9:45 AM ENERGY CONSERVATION REPRESENTATIVE 07/13/2024 10:07 AM ENERGY CONSERVATION REPRESENTATIVE Stephen Vasquez P.A.-C. LAB BLOOD ADD-ON Final Res ult Performing Organization Address [facility]/State/ZIP Co de Phone Number [facility] [address] [place] [address], [facility] DTL [facility] [address] [place] [address] * (ABNORMAL) Basic Metabolic Panel (07/13/2024 9:45 AM ENERGY CONSERVATION REPRESENTATIVE) Pathologist [facility] Potassium, S 4.7 3.6 - 5.2 mmol/L 07/13/2024 10:45 AM ENERGY CONSERVATION REPRESENTATIVE DTL Sodium, S 138 135 - 145 mmol/L 07/13/2024 10:45 AM ENERGY CONSERVATION REPRESENTATIVE DTL Chloride, S 94(L) 98 - 107 mmol/L 07/13/2024 10:45 AM ENERGY CONSERVATION REPRESENTATIVE DTL Bicarbonate, S 34(H) 22 - 29 mmol/L 07/13/2024 10:45 AM ENERGY CONSERVATION REPRESENTATIVE DTL Anion Gap 10 7 - 15 07/13/2024 10:45 AM ENERGY CONSERVATION REPRESENTATIVE DTL BUN (Blood Urea Nitrogen), S 74(H) 6 - 21 mg/dL 07/13/2024 10:45 AM ENERGY CONSERVATION REPRESENTATIVE DTL Creatinine 1.98(H) 0.59 - 1.04 mg/dL 07/13/2024 10:45 AM ENERGY CONSERVATION REPRESENTATIVE DTL Estimated GFR (eGFR) 29(L) >=60 mL/min/BSA 07/13/2024 10:45 AM ENERGY CONSERVATION REPRESENTATIVE DTL Comment: Estimated GFR calculated using the 2020 CKD_EPI creatinine equation. Calcium, Total, S 8.5(L) 8.6 - 10.0 mg/dL 07/13/2024 10:45 AM ENERGY CONSERVATION REPRESENTATIVE DTL Glucose, S 148(H) 70 - 140 mg/dL 07/13/2024 10:45 AM ENERGY CONSERVATION REPRESENTATIVE DTL Blood (Blood, Venous) 07/13/2024 9:45 AM ENERGY CONSERVATION REPRESENTATIVE 07/13/2024 10:24 AM ENERGY CONSERVATION REPRESENTATIVE Stephen Vasquez P.A.-C. LAB BLOOD ADD-ON Final Res ult [facility] [address] [place] [address], [facility] DTL [facility] [address] [place] [address] * Type and Screen (with Reflex Antibody ID) (07/13/2024 9:44 AM ENERGY CONSERVATION REPRESENTATIVE) Pathologist [facility] ABORh A Pos Not applicable 07/13/2024 10:17 AM ENERGY CONSERVATION REPRESENTATIVE STRM Antibody Screen Negative Negative 07/13/2024 10:36 AM ENERGY CONSERVATION REPRESENTATIVE STRM Type & Screen Expiration 07/16/2024 23:59 07/13/2024 10:17 AM ENERGY CONSERVATION REPRESENTATIVE STRM Testing Location [facility] DEFAULT 07/13/2024 10:00 AM ENERGY CONSERVATION REPRESENTATIVE STRM Blood (Blood, Venous) 07/13/2024 9:44 AM ENERGY CONSERVATION REPRESENTATIVE 07/13/2024 10:00 AM ENERGY CONSERVATION REPRESENTATIVE us Janeth Rojas P.A.-C. LAB BLOOD BANK TEST ORDERAB LES Final Result [facility] [address] [place] [address], [facility] [address] [place] [address] * (ABNORMAL) Basic Metabolic Panel (07/12/2024 5:11 PM ENERGY CONSERVATION REPRESENTATIVE) Pathologist [facility] Potassium, S 4.6 3.6 - 5.2 mmol/L 07/12/2024 6:18 PM ENERGY CONSERVATION REPRESENTATIVE DTL Sodium, S 140 135 - 145 mmol/L 07/12/2024 6:18 PM ENERGY CONSERVATION REPRESENTATIVE DTL Chloride, S 95(L) 98 - 107 mmol/L 07/12/2024 6:18 PM ENERGY CONSERVATION REPRESENTATIVE DTL Bicarbonate, S 32(H) 22 - 29 mmol/L 07/12/2024 6:18 PM ENERGY CONSERVATION REPRESENTATIVE DTL Anion Gap 13 7 - 15 07/12/2024 6:18 PM ENERGY CONSERVATION REPRESENTATIVE DTL BUN (Blood Urea Nitrogen), S 63(H) 6 - 21 mg/dL 07/12/2024 6:18 PM ENERGY CONSERVATION REPRESENTATIVE DTL Creatinine 1.68(H) 0.59 - 1.04 mg/dL 07/12/2024 6:18 PM ENERGY CONSERVATION REPRESENTATIVE DTL Estimated GFR (eGFR) 35(L) >=60 mL/min/BSA 07/12/2024 6:18 PM ENERGY CONSERVATION REPRESENTATIVE DTL Comment: Estimated GFR calculated using the 2020 CKD_EPI creatinine equation. Calcium, Total, S 8.4(L) 8.6 - 10.0 mg/dL 07/12/2024 6:18 PM ENERGY CONSERVATION REPRESENTATIVE DTL Glucose, S 151(H) 70 - 140 mg/dL 07/12/2024 6:18 PM ENERGY CONSERVATION REPRESENTATIVE DTL Blood (Blood, Venous) 07/12/2024 5:11 PM ENERGY CONSERVATION REPRESENTATIVE 07/12/2024 6:02 PM ENERGY CONSERVATION REPRESENTATIVE Janeth Rojas P.A.-C. LAB BLOOD ADD-ON Final Resu lt Performing Organization Address [facility] de Phone Number [facility] [address] [place] [address], [facility] DTL [facility] [address] [place] [address] * (ABNORMAL) CBC without Differential (07/12/2024 5:10 PM ENERGY CONSERVATION REPRESENTATIVE) Hemoglobin 7.1(L) 11.6 - 15.0 g/dL 07/12/2024 5:55 PM ENERGY CONSERVATION REPRESENTATIVE DTL Hematocrit 22.8(L) 35.5 - 44.9 % 07/12/2024 5:55 PM ENERGY CONSERVATION REPRESENTATIVE DTL Erythrocytes 2.46(L) 3.92 - 5.13 x10(12)/L 07/12/2024 5:55 PM ENERGY CONSERVATION REPRESENTATIVE DTL MCV 92.7 78.2 - 97.9 fL 07/12/2024 5:55 PM ENERGY CONSERVATION REPRESENTATIVE DTL RBC Distrib Width 20.6(H) 12.2 - 16.1 % 07/12/2024 5:55 PM ENERGY CONSERVATION REPRESENTATIVE DTL Platelet Count 318 157 - 371 x10(9)/L 07/12/2024 5:55 PM ENERGY CONSERVATION REPRESENTATIVE DTL Leukocytes 28.0(H) 3.4 - 9.6 x10(9)/L 07/12/2024 7:13 PM ENERGY CONSERVATION REPRESENTATIVE DTL Comment:Corrected for normob lasts. Blood (Blood, Venous) 07/12/2024 5:10 PM ENERGY CONSERVATION REPRESENTATIVE 07/12/2024 5:50 PM ENERGY CONSERVATION REPRESENTATIVE Janeth Rojas P.A.-C. LAB BLOOD ADD-ON Final Resu lt Performing Organization Address City/[facility]/ZIP Co de Phone Number [facility] [address] [place] [address], [facility] DTL [facility] [address] [place] [address] * Transfuse Red Blood Cells : (07/12/2024 3:10 PM ENERGY CONSERVATION REPRESENTATIVE) us Janeth Rojas P.A.-C. BLOOD TRANSFUSION ORDERABLE S Final Result * Transfuse Red Blood Cells : , 1 Units (07/12/2024 3:10 PM ENERGY CONSERVATION REPRESENTATIVE) us Janeth Rojas P.A.-C. BLOOD TRANSFUSION ORDERABLE S Final Result * Influenza A, B, RSV, PCR, Rapid (07/12/2024 12:28 PM ENERGY CONSERVATION REPRESENTATIVE) Pathologist [facility] Influenza A, PCR, Rapid, V Negative Negative 07/12/2024 1:32 PM ENERGY CONSERVATION REPRESENTATIVE STMA Influenza B, PCR, Rapid, V Negative Negative 07/12/2024 1:32 PM ENERGY CONSERVATION REPRESENTATIVE STMA Resp Synctial Virus, PCR, Rapid Negative Negative 07/12/2024 1:32 PM ENERGY CONSERVATION REPRESENTATIVE STMA Specimen Source Swab, Nasopharynx 07/12/2024 1:03 PM ENERGY CONSERVATION REPRESENTATIVE STMA Swab (Nasopharynx) 07/12/2024 12:28 PM ENERGY CONSERVATION REPRESENTATIVE 07/12/2024 12:38 PM ENERGY CONSERVATION REPRESENTATIVE us Janeth Rojas P.A.-C. LAB MICROBIOLOGY - GENERAL ORDERABLES Final Result [facility] [address] [place] [address], [facility] STMA [facility] [address] [place] [address] * SARS Coronavirus 2, PCR Rapid Symptomatic (07/12/2024 12:28 PM ENERGY CONSERVATION REPRESENTATIVE) Pathologist [facility] SARS CoV-2, PCR, Rapid, V Undetected Undetected 07/12/2024 1:03 PM ENERGY CONSERVATION REPRESENTATIVE STMA SARS Coronavirus 2, Rapid, Source Swab, Nasopharynx 07/12/2024 12:38 PM ENERGY CONSERVATION REPRESENTATIVE STMA Swab (Nasopharynx) 07/12/2024 12:28 PM ENERGY CONSERVATION REPRESENTATIVE 07/12/2024 12:38 PM ENERGY CONSERVATION REPRESENTATIVE Janeth Rojas P.A.-C. LAB MICROBIOLOGY - GENERAL ORDERABLES Final Result Performing Organization Address City/[facility]/ZIP Co de Phone Number [facility] [address] [place] [address], [facility] STMA [facility] [address] [place] [address] * (ABNORMAL) Glucose, POCT (07/12/2024 12:07 PM ENERGY CONSERVATION REPRESENTATIVE) Glucose, POCT, B 142(H) 70 - 140 mg/dL 07/12/2024 12:22 PM ENERGY CONSERVATION REPRESENTATIVE PCLX Site Capillary 07/12/2024 12:22 PM ENERGY CONSERVATION REPRESENTATIVE PCLX Last Intake 3-4 hours 07/12/2024 12:22 PM ENERGY CONSERVATION REPRESENTATIVE PCLX Blood 07/12/2024 12:0 7 PM ENERGY CONSERVATION REPRESENTATIVE 07/12/2024 12:22 PM ENERGY CONSERVATION REPRESENTATIVE us Unknown Provider LAB POCT ORDERABLES-MANUAL Ese l Result Performing Organization Address [facility] Co de Phone Number [facility] [address] [place] [address], [facility] PCLX [facility] [address] [place] [address] * Bacteria / Ronit Culture, Blood #2 (07/12/2024 12:01 PM ENERGY CONSERVATION REPRESENTATIVE) Bacteria/Maria R da Culture, Blood No growth after 5 days of incubation. 07/17/2024 1:02 PM ENERGY CONSERVATION REPRESENTATIVE DTL Blood (Blood, Peripheral Draw) 07/12/2024 12:01 PM ENERGY CONSERVATION REPRESENTATIVE 07/12/2024 12:28 PM ENERGY CONSERVATION REPRESENTATIVE Comment:Specimen Source Site : Blood Janeth Rojas P.A.-C. LAB MICROBIOLOGY - GENERAL ORDERABLES Final Result Performing Organization Address City/[facility]/ZIP Co de Phone Number [facility] [address] [place] [address], [facility] DTL [facility] [address] [place] [address] * Bacteria / Ronit Culture, Blood #1 (07/12/2024 11:57 AM ENERGY CONSERVATION REPRESENTATIVE) Bacteria/Maria R da Culture, Blood No growth after 5 days of incubation. 07/17/2024 1:02 PM ENERGY CONSERVATION REPRESENTATIVE DTL Blood (Blood, Peripheral Draw) 07/12/2024 11:57 AM ENERGY CONSERVATION REPRESENTATIVE 07/12/2024 12:28 PM ENERGY CONSERVATION REPRESENTATIVE Comment:Specimen Source Site : Blood us Janeth Rojas P.A.-C. LAB MICROBIOLOGY - GENERAL ORDERABLES Final Result Performing Organization Address [facility] Co de Phone Number [facility] [address] [place] [address], [facility] [address] [place] [address] * ECG 12 Lead (07/12/2024 6:37 AM ENERGY CONSERVATION REPRESENTATIVE) Ventricular Rate ECG/Min 105 BPM MUSE GA Interval 160 ms MUSE QRSD Interval 84 ms MUSE QT Interval 370 ms MUSE QTC Interval 489 ms MUSE P [place] -16 degrees MUSE R [place] 90 degrees MUSE T Wave [place] -13 degrees MUSE 07/12/2024 6:37 AM ENERGY CONSERVATION REPRESENTATIVE 07/12/2024 7:00 AM ENERGY CONSERVATION REPRESENTATIVE Impressions MUSE - 07/12/2024 7:00 AM ENERGY CONSERVATION REPRESENTATIVE Sinus tachycardia with sinus arrhythmia Nonspecific ST [...] ORDERABLES Final Resu lt Performing Organization Address City/[facility]/ZIP Co de Phone Number MUSE NA * Glucose, POCT (07/12/2024 6:30 AM ENERGY CONSERVATION REPRESENTATIVE) Glucose, POCT, B 133 70 - 140 mg/dL 07/12/2024 6:35 AM ENERGY CONSERVATION REPRESENTATIVE PCLX Site Capillary 07/12/2024 6:35 AM ENERGY CONSERVATION REPRESENTATIVE PCLX Last Intake 3-4 hours 07/12/2024 6:35 AM ENERGY CONSERVATION REPRESENTATIVE PCLX Blood 07/12/2024 6:30 AM ENERGY CONSERVATION REPRESENTATIVE 07/12/2024 6:35 AM ENERGY CONSERVATION REPRESENTATIVE us Unknown Provider LAB POCT ORDERABLES-MANUAL Ese l Result Performing Organization Address [facility]/ZIP Co de Phone Number [facility] [address] [place] [address], [facility] PCLX [facility] [address] [place] [address] * Lactate (07/12/2024 5:02 AM ENERGY CONSERVATION REPRESENTATIVE) Pathologist [facility] Lactate, P 1.5 0.5 - 2.2 mmol/L 07/12/2024 5:22 AM ENERGY CONSERVATION REPRESENTATIVE STMA Blood (Blood, Venous) 07/12/2024 5:02 AM ENERGY CONSERVATION REPRESENTATIVE 07/12/2024 5:09 AM ENERGY CONSERVATION REPRESENTATIVE us Stephen LernerAZahraa-CZahraa LAB BLOOD NON ADD-ON Final Result Performing Organization Address [facility]/ZIP Co de Phone Number [facility] [address] [place] [address], [facility] STMA [facility] [address] [place] [address] * (ABNORMAL) Magnesium (07/12/2024 4:52 AM ENERGY CONSERVATION REPRESENTATIVE) Pathologist [facility] Magnesium, S 2.6(H) 1.7 - 2.3 mg/dL 07/12/2024 6:16 AM ENERGY CONSERVATION REPRESENTATIVE DTL Blood (Blood, Venous) 07/12/2024 4:52 AM ENERGY CONSERVATION REPRESENTATIVE 07/12/2024 5:53 AM ENERGY CONSERVATION REPRESENTATIVE us Stephen Chand-C. LAB BLOOD ADD-ON Final Res ult Performing Organization Address City/[facility]/ZIP Co de Phone Number [facility] [address] [place] [address], [facility] DTL [facility] [address] [place] [address] * (ABNORMAL) CBC without Differential (07/12/2024 4:52 AM ENERGY CONSERVATION REPRESENTATIVE) Pathologist [facility] Hemoglobin 6.9(L) 11.6 - 15.0 g/dL 07/12/2024 5:52 AM ENERGY CONSERVATION REPRESENTATIVE DTL Hematocrit 22.1(L) 35.5 - 44.9 % 07/12/2024 5:52 AM ENERGY CONSERVATION REPRESENTATIVE DTL Erythrocytes 2.38(L) 3.92 - 5.13 x10(12)/L 07/12/2024 5:52 AM ENERGY CONSERVATION REPRESENTATIVE DTL MCV 92.9 78.2 - 97.9 fL 07/12/2024 5:52 AM ENERGY CONSERVATION REPRESENTATIVE DTL RBC Distrib Width 21.6(H) 12.2 - 16.1 % 07/12/2024 5:52 AM ENERGY CONSERVATION REPRESENTATIVE DTL Platelet Count 355 157 - 371 x10(9)/L 07/12/2024 5:52 AM ENERGY CONSERVATION REPRESENTATIVE DTL Leukocytes 31.6(H) 3.4 - 9.6 x10(9)/L 07/12/2024 6:23 AM ENERGY CONSERVATION REPRESENTATIVE DTL Comment:Corrected for normob lasts. Blood (Blood, Venous) 07/12/2024 4:52 AM ENERGY CONSERVATION REPRESENTATIVE 07/12/2024 5:43 AM ENERGY CONSERVATION REPRESENTATIVE Stephen Vasquez P.A.-C. LAB BLOOD ADD-ON Final Res ult [facility] [address] [place] [address], [place] DTL [facility] [address] [place] [address] * (ABNORMAL) Basic Metabolic Panel (07/12/2024 4:52 AM ENERGY CONSERVATION REPRESENTATIVE) Pathologist [facility] Potassium, S 5.0 3.6 - 5.2 mmol/L 07/12/2024 6:16 AM ENERGY CONSERVATION REPRESENTATIVE DTL Sodium, S 138 135 - 145 mmol/L 07/12/2024 6:16 AM ENERGY CONSERVATION REPRESENTATIVE DTL Chloride, S 94(L) 98 - 107 mmol/L 07/12/2024 6:16 AM ENERGY CONSERVATION REPRESENTATIVE DTL Bicarbonate, S 29 22 - 29 mmol/L 07/12/2024 6:16 AM ENERGY CONSERVATION REPRESENTATIVE DTL Anion Gap 15 7 - 15 07/12/2024 6:16 AM ENERGY CONSERVATION REPRESENTATIVE DTL BUN (Blood Urea Nitrogen), S 60(H) 6 - 21 mg/dL 07/12/2024 6:16 AM ENERGY CONSERVATION REPRESENTATIVE DTL Creatinine 1.63(H) 0.59 - 1.04 mg/dL 07/12/2024 6:16 AM ENERGY CONSERVATION REPRESENTATIVE DTL Estimated GFR (eGFR) 37(L) >=60 mL/min/BSA 07/12/2024 6:16 AM ENERGY CONSERVATION REPRESENTATIVE DTL Comment: Estimated GFR calculated using the 2020 CKD_EPI creatinine equation. Calcium, Total, S 8.6 8.6 - 10.0 mg/dL 07/12/2024 6:16 AM ENERGY CONSERVATION REPRESENTATIVE DTL Glucose, S 133 70 - 140 mg/dL 07/12/2024 6:16 AM ENERGY CONSERVATION REPRESENTATIVE DTL Blood (Blood, Venous) 07/12/2024 4:52 AM ENERGY CONSERVATION REPRESENTATIVE 07/12/2024 5:53 AM ENERGY CONSERVATION REPRESENTATIVE us Stephen Vasquez P.A.-C. LAB BLOOD [place] [address], [facility] [address] [place] [address] * Glucose, POCT (07/11/2024 9:17 PM ENERGY CONSERVATION REPRESENTATIVE) Glucose, POCT, B 117 70 - 140 mg/dL 07/11/2024 9:22 PM ENERGY CONSERVATION REPRESENTATIVE PCLX Site Capillary 07/11/2024 9:22 PM ENERGY CONSERVATION REPRESENTATIVE PCLX Last Intake 3-4 hours 07/11/2024 9:22 PM ENERGY CONSERVATION REPRESENTATIVE PCLX Blood 07/11/2024 9:17 PM ENERGY CONSERVATION REPRESENTATIVE 07/11/2024 9:22 PM ENERGY CONSERVATION REPRESENTATIVE us Unknown Provider LAB POCT ORDERABLES-MANUAL Ese l Result Performing Organization Address [facility]/ZIP Co de Phone Number [facility] [address] [place] [address], [facility] PCLX [facility] [address] [place] [address] * (ABNORMAL) Glucose, POCT (07/11/2024 4:37 PM ENERGY CONSERVATION REPRESENTATIVE) Glucose, POCT, B 147(H) 70 - 140 mg/dL 07/11/2024 4:40 PM ENERGY CONSERVATION REPRESENTATIVE PCLX Site Capillary 07/11/2024 4:40 PM ENERGY CONSERVATION REPRESENTATIVE PCLX Last Intake 3-4 hours 07/11/2024 4:40 PM ENERGY CONSERVATION REPRESENTATIVE PCLX Blood 07/11/2024 4:37 PM ENERGY CONSERVATION REPRESENTATIVE 07/11/2024 4:41 PM ENERGY CONSERVATION REPRESENTATIVE us Unknown Provider LAB POCT ORDERABLES-MANUAL Ese l Result Performing Organization Address [facility] Co de Phone Number [facility] [address] [place] [address], [facility] PCLX [facility] [address] [place] [address] * (ABNORMAL) Glucose, POCT (07/11/2024 11:37 AM ENERGY CONSERVATION REPRESENTATIVE) Glucose, POCT, B 164(H) 70 - 140 mg/dL 07/11/2024 11:41 AM ENERGY CONSERVATION REPRESENTATIVE PCLX Site Capillary 07/11/2024 11:41 AM ENERGY CONSERVATION REPRESENTATIVE PCLX Last Intake 1-2 hours 07/11/2024 11:41 AM ENERGY CONSERVATION REPRESENTATIVE PCLX Blood 07/11/2024 11:3 7 AM ENERGY CONSERVATION REPRESENTATIVE 07/11/2024 11:41 AM ENERGY CONSERVATION REPRESENTATIVE us Unknown Provider LAB POCT ORDERABLES-MANUAL Ese l Result Performing Organization Address City/[facility] Co de Phone Number [facility] [address] [place] [address], [facility] PCLX [facility] [address] [place] [address] * (ABNORMAL) Magnesium (07/11/2024 9:10 AM ENERGY CONSERVATION REPRESENTATIVE) Pathologist [facility] Magnesium, S 2.6(H) 1.7 - 2.3 mg/dL 07/11/2024 10:08 AM ENERGY CONSERVATION REPRESENTATIVE DTL Blood (Blood, Venous) 07/11/2024 9:10 AM ENERGY CONSERVATION REPRESENTATIVE 07/11/2024 9:48 AM ENERGY CONSERVATION REPRESENTATIVE Janeth Rojas P.A.-C. LAB BLOOD ADD-ON Final Resu lt Performing Organization Address [facility] Co de Phone Number [facility] [address] [place] [address], [facility] DTL [facility] [address] [place] [address] * (ABNORMAL) CBC without Differential (07/11/2024 9:10 AM ENERGY CONSERVATION REPRESENTATIVE) Pathologist [facility] Hemoglobin 6.9(L) 11.6 - 15.0 g/dL 07/11/2024 9:36 AM ENERGY CONSERVATION REPRESENTATIVE DTL Hematocrit 22.0(L) 35.5 - 44.9 % 07/11/2024 9:36 AM ENERGY CONSERVATION REPRESENTATIVE DTL Erythrocytes 2.37(L) 3.92 - 5.13 x10(12)/L 07/11/2024 9:36 AM ENERGY CONSERVATION REPRESENTATIVE DTL MCV 92.8 78.2 - 97.9 fL 07/11/2024 9:36 AM ENERGY CONSERVATION REPRESENTATIVE DTL RBC Distrib Width 21.4(H) 12.2 - 16.1 % 07/11/2024 9:36 AM ENERGY CONSERVATION REPRESENTATIVE DTL Platelet Count 359 157 - 371 x10(9)/L 07/11/2024 9:36 AM ENERGY CONSERVATION REPRESENTATIVE DTL Leukocytes 30.4(H) 3.4 - 9.6 x10(9)/L 07/11/2024 10:05 AM ENERGY CONSERVATION REPRESENTATIVE DTL Comment:Corrected for normob lasts. Blood (Blood, Venous) 07/11/2024 9:10 AM ENERGY CONSERVATION REPRESENTATIVE 07/11/2024 9:30 AM ENERGY CONSERVATION REPRESENTATIVE Janeth Rojas P.A.-C. LAB BLOOD ADD-ON Final Resu lt Performing Organization Address City/[facility]/ZIP Co de Phone Number [facility] [address] [place] [address], [facility] DTL [facility] [address] [place] [address] * (ABNORMAL) Basic Metabolic Panel (07/11/2024 9:10 AM ENERGY CONSERVATION REPRESENTATIVE) [facility] Potassium, S 5.1 3.6 - 5.2 mmol/L 07/11/2024 10:08 AM ENERGY CONSERVATION REPRESENTATIVE DTL Sodium, S 140 135 - 145 mmol/L 07/11/2024 10:08 AM ENERGY CONSERVATION REPRESENTATIVE DTL Chloride, S 97(L) 98 - 107 mmol/L 07/11/2024 10:08 AM ENERGY CONSERVATION REPRESENTATIVE DTL Bicarbonate, S 30(H) 22 - 29 mmol/L 07/11/2024 10:08 AM ENERGY CONSERVATION REPRESENTATIVE DTL Anion Gap 13 7 - 15 07/11/2024 10:08 AM ENERGY CONSERVATION REPRESENTATIVE DTL BUN (Blood Urea Nitrogen), S 51(H) 6 - 21 mg/dL 07/11/2024 10:08 AM ENERGY CONSERVATION REPRESENTATIVE DTL Creatinine 1.55(H) 0.59 - 1.04 mg/dL 07/11/2024 10:08 AM ENERGY CONSERVATION REPRESENTATIVE DTL Estimated GFR (eGFR) 39(L) >=60 mL/min/BSA 07/11/2024 10:08 AM ENERGY CONSERVATION REPRESENTATIVE DTL Comment: Estimated GFR calculated using the 2020 CKD_EPI creatinine equation. Calcium, Total, S 8.5(L) 8.6 - 10.0 mg/dL 07/11/2024 10:08 AM ENERGY CONSERVATION REPRESENTATIVE DTL Glucose, S 137 70 - 140 mg/dL 07/11/2024 10:08 AM ENERGY CONSERVATION REPRESENTATIVE DTL Blood (Blood, Venous) 07/11/2024 9:10 AM ENERGY CONSERVATION REPRESENTATIVE 07/11/2024 9:48 AM ENERGY CONSERVATION REPRESENTATIVE us Janeth Rojas P.A.-C. LAB BLOOD ADD-ON Final Resu lt [address] [address], [facility] DTL [address] [address] * Glucose, POCT (07/11/2024 6:22 AM ENERGY CONSERVATION REPRESENTATIVE) Glucose, POCT, B 132 70 - 140 mg/dL 07/11/2024 6:25 AM ENERGY CONSERVATION REPRESENTATIVE PCLX Site Capillary 07/11/2024 6:25 AM ENERGY CONSERVATION REPRESENTATIVE PCLX Last Intake 3-4 hours 07/11/2024 6:25 AM ENERGY CONSERVATION REPRESENTATIVE PCLX Blood 07/11/2024 6:22 AM ENERGY CONSERVATION REPRESENTATIVE 07/11/2024 6:26 AM ENERGY CONSERVATION REPRESENTATIVE us Unknown Provider LAB POCT ORDERABLES-MANUAL Ese l Result Performing Organization Address City/[facility]/ZIP Co de Phone Number [facility] [address] [place] [address], [place] PCLX [facility] [address] [place] [address] * (ABNORMAL) Glucose, POCT (07/10/2024 10:21 PM ENERGY CONSERVATION REPRESENTATIVE) Glucose, POCT, B 159(H) 70 - 140 mg/dL 07/10/2024 10:31 PM ENERGY CONSERVATION REPRESENTATIVE PCLX Site Capillary 07/10/2024 10:31 PM ENERGY CONSERVATION REPRESENTATIVE PCLX Last Intake 3-4 hours 07/10/2024 10:31 PM ENERGY CONSERVATION REPRESENTATIVE PCLX Blood 07/10/2024 10:2 1 PM ENERGY CONSERVATION REPRESENTATIVE 07/10/2024 10:31 PM ENERGY CONSERVATION REPRESENTATIVE us Unknown Provider LAB POCT ORDERABLES-MANUAL Ese l Result Performing Organization Address [facility] Co de Phone Number [facility] [address] [place] [address], [place] [facility] [address] [place] [address] * Glucose, POCT (07/10/2024 9:53 PM ENERGY CONSERVATION REPRESENTATIVE) Glucose, POCT, B 140 70 - 140 mg/dL 07/10/2024 9:58 PM ENERGY CONSERVATION REPRESENTATIVE PCLX Last Intake 2-3 hours 07/10/2024 9:58 PM ENERGY CONSERVATION REPRESENTATIVE PCLX Blood 07/10/2024 9:53 PM ENERGY CONSERVATION REPRESENTATIVE 07/10/2024 9:59 PM ENERGY CONSERVATION REPRESENTATIVE us Unknown Provider LAB POCT ORDERABLES-MANUAL Ese l Result Performing Organization Address [facility] Co de Phone Number [facility] [address] [place] [address], [facility] PCLX [facility] POC [address] [place] [address] * ECG 12 Lead (07/10/2024 8:40 PM ENERGY CONSERVATION REPRESENTATIVE) Ventricular Rate ECG/Min 112 BPM MUSE GA Interval 152 ms MUSE QRSD Interval 80 ms MUSE QT Interval 328 ms MUSE QTC Interval 448 ms MUSE P [place] 6 degrees MUSE R [place] 86 degrees MUSE T Wave [place] -14 degrees MUSE 07/10/2024 8:40 PM ENERGY CONSERVATION REPRESENTATIVE 07/10/2024 8:50 PM ENERGY CONSERVATION REPRESENTATIVE Impressions MUSE - 07/10/2024 8:50 PM ENERGY CONSERVATION REPRESENTATIVE Sinus tachycardia Nonspecific ST and T wave [...] ORDERABLES Final Resu lt Performing Organization Address [facility] Co de Phone Number MUSE NA * Glucose, POCT (07/10/2024 4:32 PM ENERGY CONSERVATION REPRESENTATIVE) Glucose, POCT, B 127 70 - 140 mg/dL 07/10/2024 4:35 PM ENERGY CONSERVATION REPRESENTATIVE PCLX Site Capillary 07/10/2024 4:35 PM ENERGY CONSERVATION REPRESENTATIVE PCLX Last Intake 3-4 hours 07/10/2024 4:35 PM ENERGY CONSERVATION REPRESENTATIVE PCLX Blood 07/10/2024 4:32 PM ENERGY CONSERVATION REPRESENTATIVE 07/10/2024 4:35 PM ENERGY CONSERVATION REPRESENTATIVE us Unknown Provider LAB POCT ORDERABLES-MANUAL Ese l Result Performing Organization Address [facility]/ZIP Co de Phone Number [facility] [address] [place] [address], [facility] PCLX [facility] POC [address] [place] [address] * (ABNORMAL) Basic Metabolic Panel (07/10/2024 3:27 PM ENERGY CONSERVATION REPRESENTATIVE) Pathologist [facility] Potassium, S 5.0 3.6 - 5.2 mmol/L 07/10/2024 4:43 PM ENERGY CONSERVATION REPRESENTATIVE DTL Sodium, S 142 135 - 145 mmol/L 07/10/2024 4:43 PM ENERGY CONSERVATION REPRESENTATIVE DTL Chloride, S 98 98 - 107 mmol/L 07/10/2024 4:43 PM ENERGY CONSERVATION REPRESENTATIVE DTL Bicarbonate, S 32(H) 22 - 29 mmol/L 07/10/2024 4:43 PM ENERGY CONSERVATION REPRESENTATIVE DTL Anion Gap 12 7 - 15 07/10/2024 4:43 PM ENERGY CONSERVATION REPRESENTATIVE DTL BUN (Blood Urea Nitrogen), S 43(H) 6 - 21 mg/dL 07/10/2024 4:43 PM ENERGY CONSERVATION REPRESENTATIVE DTL Creatinine 1.33(H) 0.59 - 1.04 mg/dL 07/10/2024 4:43 PM ENERGY CONSERVATION REPRESENTATIVE DTL Estimated GFR (eGFR) 47(L) >=60 mL/min/BSA 07/10/2024 4:43 PM ENERGY CONSERVATION REPRESENTATIVE DTL Comment: Estimated GFR calculated using the 2020 CKD_EPI creatinine equation. Calcium, Total, S 8.7 8.6 - 10.0 mg/dL 07/10/2024 4:43 PM ENERGY CONSERVATION REPRESENTATIVE DTL Glucose, S 118 70 - 140 mg/dL 07/10/2024 4:43 PM ENERGY CONSERVATION REPRESENTATIVE DTL Blood (Blood, Venous) 07/10/2024 3:27 PM ENERGY CONSERVATION REPRESENTATIVE 07/10/2024 4:28 PM ENERGY CONSERVATION REPRESENTATIVE us Janeth Rojas P.A.-C. LAB BLOOD ADD-ON Final Resu lt [facility] [address] [place] [address], [facility] DTL [facility] [address] [place] [address] * Glucose, POCT (07/10/2024 11:54 AM ENERGY CONSERVATION REPRESENTATIVE) Pathologist [facility] Glucose, POCT, B 106 70 - 140 mg/dL 07/10/2024 11:58 AM ENERGY CONSERVATION REPRESENTATIVE PCLX Site Capillary 07/10/2024 11:58 AM ENERGY CONSERVATION REPRESENTATIVE PCLX Last Intake 3-4 hours 07/10/2024 11:58 AM ENERGY CONSERVATION REPRESENTATIVE PCLX Blood 07/10/2024 11:5 4 AM ENERGY CONSERVATION REPRESENTATIVE 07/10/2024 11:59 AM ENERGY CONSERVATION REPRESENTATIVE Unknown Provider LAB POCT ORDERABLES-MANUAL Ese l Result Performing Organization Address [facility]/ZIP Co de Phone Number [facility] [address] [place] [address], [facility] PCLX [facility] [address] [place] [address] * (ABNORMAL) Magnesium (07/10/2024 5:45 AM ENERGY CONSERVATION REPRESENTATIVE) Pathologist [facility] Magnesium, S 2.5(H) 1.7 - 2.3 mg/dL 07/10/2024 7:08 AM ENERGY CONSERVATION REPRESENTATIVE DTL Blood (Blood, Venous) 07/10/2024 5:45 AM ENERGY CONSERVATION REPRESENTATIVE 07/10/2024 6:44 AM ENERGY CONSERVATION REPRESENTATIVE Janeth Rojas P.A.-C. LAB BLOOD ADD-ON Final Resu lt Performing Organization Address City/[facility]/ZIP Co de Phone Number [facility] [address] [place] [address], [facility] DTL [facility] [address] [place] [address] * (ABNORMAL) CBC without Differential (07/10/2024 5:45 AM ENERGY CONSERVATION REPRESENTATIVE) [facility] Hemoglobin 7.2(L) 11.6 - 15.0 g/dL 07/10/2024 6:42 AM ENERGY CONSERVATION REPRESENTATIVE DTL Hematocrit 23.5(L) 35.5 - 44.9 % 07/10/2024 6:42 AM ENERGY CONSERVATION REPRESENTATIVE DTL Erythrocytes 2.51(L) 3.92 - 5.13 x10(12)/L 07/10/2024 6:42 AM ENERGY CONSERVATION REPRESENTATIVE DTL MCV 93.6 78.2 - 97.9 fL 07/10/2024 6:42 AM ENERGY CONSERVATION REPRESENTATIVE DTL RBC Distrib Width 22.1(H) 12.2 - 16.1 % 07/10/2024 6:42 AM ENERGY CONSERVATION REPRESENTATIVE DTL Platelet Count 371 157 - 371 x10(9)/L 07/10/2024 6:42 AM ENERGY CONSERVATION REPRESENTATIVE DTL Leukocytes 27.8(H) 3.4 - 9.6 x10(9)/L 07/10/2024 8:01 AM ENERGY CONSERVATION REPRESENTATIVE DTL Comment:Corrected for normob lasts. Blood (Blood, Venous) 07/10/2024 5:45 AM ENERGY CONSERVATION REPRESENTATIVE 07/10/2024 6:33 AM ENERGY CONSERVATION REPRESENTATIVE us Janeth Rojas P.A.-C. LAB BLOOD ADD-ON Final Resu lt [facility] [address] [place] [address], [facility] [address] [place] [address] * (ABNORMAL) Basic Metabolic Panel (07/10/2024 5:45 AM ENERGY CONSERVATION REPRESENTATIVE) Potassium, S 5.0 3.6 - 5.2 mmol/L 07/10/2024 7:08 AM ENERGY CONSERVATION REPRESENTATIVE DTL Sodium, S 143 135 - 145 mmol/L 07/10/2024 7:08 AM ENERGY CONSERVATION REPRESENTATIVE DTL Chloride, S 99 98 - 107 mmol/L 07/10/2024 7:08 AM ENERGY CONSERVATION REPRESENTATIVE DTL Bicarbonate, S 31(H) 22 - 29 mmol/L 07/10/2024 7:08 AM ENERGY CONSERVATION REPRESENTATIVE DTL Anion Gap 13 7 - 15 07/10/2024 7:08 AM ENERGY CONSERVATION REPRESENTATIVE DTL BUN (Blood Urea Nitrogen), S 43(H) 6 - 21 mg/dL 07/10/2024 7:12 AM ENERGY CONSERVATION REPRESENTATIVE DTL Creatinine 1.34(H) 0.59 - 1.04 mg/dL 07/10/2024 7:08 AM ENERGY CONSERVATION REPRESENTATIVE DTL Estimated GFR (eGFR) 47(L) >=60 mL/min/BSA 07/10/2024 7:08 AM ENERGY CONSERVATION REPRESENTATIVE DTL Comment: Estimated GFR calculated using the 2020 CKD_EPI creatinine equation. Calcium, Total, S 8.7 8.6 - 10.0 mg/dL 07/10/2024 7:08 AM ENERGY CONSERVATION REPRESENTATIVE DTL Glucose, S 108 70 - 140 mg/dL 07/10/2024 7:08 AM ENERGY CONSERVATION REPRESENTATIVE DTL Blood (Blood, Venous) 07/10/2024 5:45 AM ENERGY CONSERVATION REPRESENTATIVE 07/10/2024 6:44 AM ENERGY CONSERVATION REPRESENTATIVE us Janeth Rojas P.A.-C. LAB BLOOD ADD-ON Final Resu lt [facility] [address] [place] [address], [facility] DTL [facility] [address] [place] [address] * Glucose, POCT (07/10/2024 5:43 AM ENERGY CONSERVATION REPRESENTATIVE) Glucose, POCT, B 120 70 - 140 mg/dL 07/10/2024 5:49 AM ENERGY CONSERVATION REPRESENTATIVE PCLX Site Venstick 07/10/2024 5:49 AM ENERGY CONSERVATION REPRESENTATIVE PCLX Last Intake 3-4 hours 07/10/2024 5:49 AM ENERGY CONSERVATION REPRESENTATIVE PCLX Blood 07/10/2024 5:43 AM ENERGY CONSERVATION REPRESENTATIVE 07/10/2024 5:49 AM ENERGY CONSERVATION REPRESENTATIVE us Unknown Provider LAB POCT ORDERABLES-MANUAL Ese l Result Performing Organization Address City/[facility]/ZIP Co de Phone Number [facility] [address] [place] [address], [facility] PCLX [facility] POC [address] [place] [address] * Glucose, POCT (07/09/2024 9:07 PM ENERGY CONSERVATION REPRESENTATIVE) Glucose, POCT, B 124 70 - 140 mg/dL 07/09/2024 9:09 PM ENERGY CONSERVATION REPRESENTATIVE PCLX Site Capillary 07/09/2024 9:09 PM ENERGY CONSERVATION REPRESENTATIVE PCLX Last Intake 3-4 hours 07/09/2024 9:09 PM ENERGY CONSERVATION REPRESENTATIVE PCLX Blood 07/09/2024 9:07 PM ENERGY CONSERVATION REPRESENTATIVE 07/09/2024 9:09 PM ENERGY CONSERVATION REPRESENTATIVE us Unknown Provider LAB POCT ORDERABLES-MANUAL Ese l Result Performing Organization Address [facility]/ZIP Co de Phone Number [facility] [address] [place] [address], [facility] PCLX [facility] POC [address] [place] [address] * Transfuse Red Blood Cells : (07/09/2024 5:26 PM ENERGY CONSERVATION REPRESENTATIVE) Janeth Rojas P.A.-C. BLOOD TRANSFUSION ORDERABLE S Final Result * Transfuse Red Blood Cells : , 1 Units (07/09/2024 5:26 PM ENERGY CONSERVATION REPRESENTATIVE) Janeth Rojas P.A.-C. BLOOD TRANSFUSION ORDERABLE S Final Result * Glucose, POCT (07/09/2024 5:12 PM ENERGY CONSERVATION REPRESENTATIVE) Glucose, POCT, B 123 70 - 140 mg/dL 07/09/2024 5:14 PM ENERGY CONSERVATION REPRESENTATIVE PCLX Site Capillary 07/09/2024 5:14 PM ENERGY CONSERVATION REPRESENTATIVE PCLX Last Intake 3-4 hours 07/09/2024 5:14 PM ENERGY CONSERVATION REPRESENTATIVE PCLX Blood 07/09/2024 5:12 PM ENERGY CONSERVATION REPRESENTATIVE 07/09/2024 5:15 PM ENERGY CONSERVATION REPRESENTATIVE us Unknown Provider LAB POCT ORDERABLES-MANUAL Ese l Result Performing Organization Address [facility] Co de Phone Number [facility] [address] [place] [address], [facility] PCLX [facility] P[facility] [address] [place] [address] * (ABNORMAL) Basic Metabolic Panel (07/09/2024 3:58 PM ENERGY CONSERVATION REPRESENTATIVE) Potassium, S 4.9 3.6 - 5.2 mmol/L 07/09/2024 4:50 PM ENERGY CONSERVATION REPRESENTATIVE DTL Sodium, S 142 135 - 145 mmol/L 07/09/2024 4:50 PM ENERGY CONSERVATION REPRESENTATIVE DTL Chloride, S 100 98 - 107 mmol/L 07/09/2024 4:50 PM ENERGY CONSERVATION REPRESENTATIVE DTL Bicarbonate, S 31(H) 22 - 29 mmol/L 07/09/2024 4:50 PM ENERGY CONSERVATION REPRESENTATIVE DTL Anion Gap 11 7 - 15 07/09/2024 4:50 PM ENERGY CONSERVATION REPRESENTATIVE DTL BUN (Blood Urea Nitrogen), S 42(H) 6 - 21 mg/dL 07/09/2024 4:50 PM ENERGY CONSERVATION REPRESENTATIVE DTL Creatinine 1.42(H) 0.59 - 1.04 mg/dL 07/09/2024 4:50 PM ENERGY CONSERVATION REPRESENTATIVE DTL Estimated GFR (eGFR) 43(L) >=60 mL/min/BSA 07/09/2024 4:50 PM ENERGY CONSERVATION REPRESENTATIVE DTL Comment: Estimated GFR calculated using the 2020 CKD_EPI creatinine equation. Calcium, Total, S 8.5(L) 8.6 - 10.0 mg/dL 07/09/2024 4:50 PM ENERGY CONSERVATION REPRESENTATIVE DTL Glucose, S 126 70 - 140 mg/dL 07/09/2024 4:50 PM ENERGY CONSERVATION REPRESENTATIVE DTL Blood (Blood, Venous) 07/09/2024 3:58 PM ENERGY CONSERVATION REPRESENTATIVE 07/09/2024 4:35 PM ENERGY CONSERVATION REPRESENTATIVE Janeth Rojas P.A.-C. LAB BLOOD ADD-ON Final Resu lt [facility] [address] [place] [address], [facility] [address] [place] [address] * (ABNORMAL) CBC without Differential (07/09/2024 3:58 PM ENERGY CONSERVATION REPRESENTATIVE) Hemoglobin 7.5(L) 11.6 - 15.0 g/dL 07/09/2024 4:29 PM ENERGY CONSERVATION REPRESENTATIVE DTL Hematocrit 24.3(L) 35.5 - 44.9 % 07/09/2024 4:29 PM ENERGY CONSERVATION REPRESENTATIVE DTL Erythrocytes 2.60(L) 3.92 - 5.13 x10(12)/L 07/09/2024 4:29 PM ENERGY CONSERVATION REPRESENTATIVE DTL MCV 93.5 78.2 - 97.9 fL 07/09/2024 4:29 PM ENERGY CONSERVATION REPRESENTATIVE DTL RBC Distrib Width 21.4(H) 12.2 - 16.1 % 07/09/2024 4:29 PM ENERGY CONSERVATION REPRESENTATIVE DTL Platelet Count 400(H) 157 - 371 x10(9)/L 07/09/2024 4:29 PM ENERGY CONSERVATION REPRESENTATIVE DTL Leukocytes 30.0(H) 3.4 - 9.6 x10(9)/L 07/09/2024 5:04 PM ENERGY CONSERVATION REPRESENTATIVE DTL Comment:Corrected for normob lasts. Blood (Blood, Venous) 07/09/2024 3:58 PM ENERGY CONSERVATION REPRESENTATIVE 07/09/2024 4:23 PM ENERGY CONSERVATION REPRESENTATIVE us Janeth Rojas P.A.-C. LAB BLOOD ADD-ON Final Resu lt Performing Organization Address City/[facility]/ZIP Co de Phone Number [facility] [address] [place] [address], [facility] DTL [facility] [address] [place] [address] * Glucose, POCT (07/09/2024 12:03 PM ENERGY CONSERVATION REPRESENTATIVE) Glucose, POCT, B 116 70 - 140 mg/dL 07/09/2024 12:06 PM ENERGY CONSERVATION REPRESENTATIVE PCLX Site Capillary 07/09/2024 12:06 PM ENERGY CONSERVATION REPRESENTATIVE PCLX Last Intake 3-4 hours 07/09/2024 12:06 PM ENERGY CONSERVATION REPRESENTATIVE PCLX Blood 07/09/2024 12:0 3 PM ENERGY CONSERVATION REPRESENTATIVE 07/09/2024 12:06 PM ENERGY CONSERVATION REPRESENTATIVE us Unknown Provider LAB POCT ORDERABLES-MANUAL Ese l Result Performing Organization Address [facility] Co de Phone Number [facility] [address] [place] [address], [place] PCLX [facility] POC [address] [place] [address] * (TTE) 2D ECHO DOPPLER COLOR (07/09/2024 11:37 AM ENERGY CONSERVATION REPRESENTATIVE) Ejection Fraction 64 MC CV EIMS LV [...] Laterality Modality Echocardiography 07/09/2024 10:2 7 AM ENERGY CONSERVATION REPRESENTATIVE Impressions 07/09/2024 1:55 PM ENERGY CONSERVATION REPRESENTATIVE Echocardiogram performed per follow-up pulmonary hypertension protocol. [...] the Order-Level Documents. Narrative 07/09/2024 1:55 PM ENERGY CONSERVATION REPRESENTATIVE For the complete report, see the Order-Level [...] Morphology Eval (special smear) (07/09/2024 6:00 AM ENERGY CONSERVATION REPRESENTATIVE) Neutrophilic Segs and Bands 72 50 - 75 % 07/09/2024 8:33 AM ENERGY CONSERVATION REPRESENTATIVE DH[facility] Lymphocytes 4(L) 18 - 42 % 07/09/2024 8:33 AM ENERGY CONSERVATION REPRESENTATIVE DHPM Monocytes 4 2 - 11 % 07/09/2024 8:33 AM ENERGY CONSERVATION REPRESENTATIVE DH[facility] Basophils 1 0 - 2 % 07/09/2024 8:33 AM ENERGY CONSERVATION REPRESENTATIVE DHPM Metamyelocytes 10(H) <1 % 07/09/2024 8:33 AM ENERGY CONSERVATION REPRESENTATIVE DH[facility] Myelocytes 8(H) <0.5 % 07/09/2024 8:33 AM ENERGY CONSERVATION REPRESENTATIVE DHPM Blasts 1(H) <1 % 07/09/2024 8:33 AM ENERGY CONSERVATION REPRESENTATIVE DHPM Megakaryocytes 2(H) <1 /100 WBC 07/09/2024 8:33 AM ENERGY CONSERVATION REPRESENTATIVE DHPM Nucleated RBC 77 /100 WBC 07/09/2024 8:33 AM ENERGY CONSERVATION REPRESENTATIVE [facility] Manual Absolute Neutrophil Count 18.50(H) 1.56 - 6.45 x10(9)/L 07/09/2024 8:33 AM ENERGY CONSERVATION REPRESENTATIVE [facility] Comment: ----ADDITIONAL INFORMATION---- The manual absolute neutrophil count is derived from a manual differential count and therefore is not exactly comparable to the automated absolute neutrophil count. Blood 07/09/2024 6:00 AM ENERGY CONSERVATION REPRESENTATIVE 07/09/2024 6:30 AM ENERGY CONSERVATION REPRESENTATIVE us Lanette Solis APRN, C.N.P., M.S.N. LAB BLOOD ADD-ON Final Result [facility] [address] [place] [address], [place] [address] [place] [address] * (ABNORMAL) CBC with Differential, Blood (07/09/2024 6:00 AM ENERGY CONSERVATION REPRESENTATIVE) [facility] Hemoglobin 6.7(L) 11.6 - 15.0 g/dL 07/09/2024 6:39 AM ENERGY CONSERVATION REPRESENTATIVE DTL Hematocrit 22.3(L) 35.5 - 44.9 % 07/09/2024 6:39 AM ENERGY CONSERVATION REPRESENTATIVE DTL Erythrocytes 2.40(L) 3.92 - 5.13 x10(12)/L 07/09/2024 6:39 AM ENERGY CONSERVATION REPRESENTATIVE DTL MCV 92.9 78.2 - 97.9 fL 07/09/2024 6:39 AM ENERGY CONSERVATION REPRESENTATIVE DTL RBC Distrib Width 22.8(H) 12.2 - 16.1 % 07/09/2024 8:15 AM ENERGY CONSERVATION REPRESENTATIVE PM Platelet Count 417(H) 157 - 371 x10(9)/L 07/09/2024 6:39 AM ENERGY CONSERVATION REPRESENTATIVE DTL Leukocytes 25.7(H) 3.4 - 9.6 x10(9)/L 07/09/2024 8:32 AM ENERGY CONSERVATION REPRESENTATIVE PM Comment:Corrected for normob lasts. Neutrophils See Comment 1.56 - 6.45 x10(9)/L 07/09/2024 8:32 AM ENERGY CONSERVATION REPRESENTATIVE [facility] Comment:Auto-diff results no t valid. See manual differential. Blood (Blood, Venous) 07/09/2024 6:00 AM ENERGY CONSERVATION REPRESENTATIVE 07/09/2024 6:30 AM ENERGY CONSERVATION REPRESENTATIVE Lanette Solis APRN, C.N.P., M.S.N. LAB BLOOD ADD-ON Final Result Performing Organization Address [facility] de Phone Number [facility] [address] [place] [address] * (ABNORMAL) S-TSH (Thyroid-Stimulating Hormone - Sensitive) (07/09/2024 6:00 AM ENERGY CONSERVATION REPRESENTATIVE) TSH, Sensitive 7.3(H) 0.3 - 4.2 mIU/L 07/09/2024 7:15 AM ENERGY CONSERVATION REPRESENTATIVE DT Blood (Blood, Venous) 07/09/2024 6:00 AM ENERGY CONSERVATION REPRESENTATIVE 07/09/2024 6:41 AM ENERGY CONSERVATION REPRESENTATIVE Result [facility] Ritesh Cruz APRNNMaria Elena., M.S.N. LAB BLOOD ADD-ON Final Result Performing Organization Address [facility] de Phone Number [facility] [address] [place] [id number] [place] [address] [address] [place] [address] * (ABNORMAL) Magnesium (07/09/2024 6:00 AM ENERGY CONSERVATION REPRESENTATIVE) Magnesium, S 2.5(H) 1.7 - 2.3 mg/dL 07/09/2024 7:15 AM ENERGY CONSERVATION REPRESENTATIVE DTL Blood (Blood, Venous) 07/09/2024 6:00 AM ENERGY CONSERVATION REPRESENTATIVE 07/09/2024 6:41 AM ENERGY CONSERVATION REPRESENTATIVE Sofie Cruz APRN.Khushbu., M.S.N. LAB BLOOD ADD-ON Final Result [facility] [address] [place] [address], [facility] [address] [place] [address] * (ABNORMAL) Lipid Panel (07/09/2024 6:00 AM ENERGY CONSERVATION REPRESENTATIVE) Triglycerides 118 mg/dL 07/09/2024 7:15 AM ENERGY CONSERVATION REPRESENTATIVE DTL Comment: ----REFERENCE VALUE---- Normal: <150 mg/dL Borderline High: 150-199 mg/dL High: 200-499 mg/dL Very High: > or =500 mg/dL Cholesterol, Total 93 mg/dL 2023 7:15 AM ENERGY CONSERVATION REPRESENTATIVE DTL Comment: ----REFERENCE VALUE---- Desirable: < 200 mg/dL Borderline High: 200 - 239 mg/dL High: > or = 240 mg/dL Cholesterol, LDL, Calculated 54 mg/dL 07/09/2024 7:15 AM ENERGY CONSERVATION REPRESENTATIVE DTL Comment: ----REFERENCE VALUE---- Desirable: <100 mg/dL Above Desirable: 100-129 mg/dL Borderline High: 130-159 mg/dL High: 160-189 mg/dL Very High: >=190 mg/dL ----ADDITIONAL INFORMATION---- LDL cholesterol calculated using the Cody/NIH equation. Cholesterol, HDL, S 17(L) >=50 mg/dL 07/09/2024 7:15 AM ENERGY CONSERVATION REPRESENTATIVE DTL Cholesterol, Non-HDL, Calculated 76 mg/dL 07/09/2024 7:15 AM ENERGY CONSERVATION REPRESENTATIVE DTL Comment: ----REFERENCE VALUE---- Desirable: <130 mg/dL Above Desirable: 130-159 mg/dL Borderline High: 160-189 mg/dL High: 190-219 mg/dL Very High: > or =220 mg/dL Fasting (8 HR or more) Yes 07/09/2024 6:00 AM ENERGY CONSERVATION REPRESENTATIVE DTL Blood (Blood, Venous) 07/09/2024 6:00 AM ENERGY CONSERVATION REPRESENTATIVE 07/09/2024 6:41 AM ENERGY CONSERVATION REPRESENTATIVE Lanette Solis APRN, C.N.P., M.S.N. LAB BLOOD ADD-ON Final Result Performing Organization Address [facility] Co de Phone Number [facility] [address] [place] [address], [facility] [address] [place] [address] * (ABNORMAL) Hemoglobin A1c (07/09/2024 6:00 AM ENERGY CONSERVATION REPRESENTATIVE) Pathologist [facility] Hemoglobin A1c, B 7.4(H) 4.0 - 5.6 % 07/09/2024 6:49 AM ENERGY CONSERVATION REPRESENTATIVE DTL Comment: Hemoglobin A1c values greater than or equal to 6.5 percent are diagnostic for diabetes mellitus. Diagnosis should be confirmed by repeat testing. In diabetic patients, HbA1c goals should be discussed with healthcare provider. Blood (Blood, Venous) 07/09/2024 6:00 AM ENERGY CONSERVATION REPRESENTATIVE 07/09/2024 6:30 AM ENERGY CONSERVATION REPRESENTATIVE Lanette Solis APRN, C.N.P., M.S.N. LAB BLOOD ADD-ON Final Result Performing Organization Address [facility] Co de Phone Number [facility] [address] [place] [address], [facility] [address] [place] [address] * (ABNORMAL) Comprehensive Metabolic Panel (07/09/2024 6:00 AM ENERGY CONSERVATION REPRESENTATIVE) Pathologist [facility] Potassium, S 5.3(H) 3.6 - 5.2 mmol/L 07/09/2024 7:15 AM ENERGY CONSERVATION REPRESENTATIVE DTL Sodium, S 143 135 - 145 mmol/L 07/09/2024 7:15 AM ENERGY CONSERVATION REPRESENTATIVE DTL Chloride, S 102 98 - 107 mmol/L 07/09/2024 7:15 AM ENERGY CONSERVATION REPRESENTATIVE DTL Bicarbonate, S 32(H) 22 - 29 mmol/L 07/09/2024 7:15 AM ENERGY CONSERVATION REPRESENTATIVE DTL Anion Gap 9 7 - 15 07/09/2024 7:15 AM ENERGY CONSERVATION REPRESENTATIVE DTL BUN (Blood Urea Nitrogen), S 41(H) 6 - 21 mg/dL 07/09/2024 7:15 AM ENERGY CONSERVATION REPRESENTATIVE DTL Creatinine 1.30(H) 0.59 - 1.04 mg/dL 07/09/2024 7:15 AM ENERGY CONSERVATION REPRESENTATIVE DTL Estimated GFR (eGFR) 48(L) >=60 mL/min/BS A 07/09/2024 7:15 AM ENERGY CONSERVATION REPRESENTATIVE DTL Comment: Estimated GFR calculated using the 2020 CKD_EPI creatinine equation. Calcium, Total, S 8.4(L) 8.6 - 10.0 mg/dL 07/09/2024 7:15 AM ENERGY CONSERVATION REPRESENTATIVE DTL Glucose, S 111 70 - 140 mg/dL 07/09/2024 7:15 AM ENERGY CONSERVATION REPRESENTATIVE DTL Protein, Total, S 5.8(L) 6.3 - 7.9 g/dL 07/09/2024 7:15 AM ENERGY CONSERVATION REPRESENTATIVE DTL Albumin, S 3.8 3.5 - 5.0 g/dL 07/09/2024 7:15 AM ENERGY CONSERVATION REPRESENTATIVE DTL Aspartate Aminotransferase (AST), S 50(H) 8 - 43 U/L 07/09/2024 7:15 AM ENERGY CONSERVATION REPRESENTATIVE DTL Alkaline Phosphatase, S 271(H) 35 - 104 U/L 07/09/2024 7:15 AM ENERGY CONSERVATION REPRESENTATIVE DTL Alanine Aminotransferase (ALT), S 42 7 - 45 U/L 07/09/2024 7:15 AM ENERGY CONSERVATION REPRESENTATIVE DTL Bilirubin, Total, S 1.3(H) 0.0 - 1.2 mg/dL 07/09/2024 7:15 AM ENERGY CONSERVATION REPRESENTATIVE DTL Blood (Blood, Venous) 07/09/2024 6:00 AM ENERGY CONSERVATION REPRESENTATIVE 07/09/2024 6:41 AM ENERGY CONSERVATION REPRESENTATIVE Vanda Cruz APRN.N.P., M.S.N. LAB BLOOD ADD-ON Final Result [facility] [address] [place] [address], [facility] [address] [place] [address] * Type and Screen (with Reflex Antibody ID) (07/09/2024 5:55 AM ENERGY CONSERVATION REPRESENTATIVE) ABORh A Pos Not applicable 07/09/2024 11:05 AM ENERGY CONSERVATION REPRESENTATIVE STRM Antibody Screen Negative Negative 07/09/2024 11:15 AM ENERGY CONSERVATION REPRESENTATIVE STRM Type & Screen Expiration 07/12/2024 23:59 07/09/2024 11:05 AM ENERGY CONSERVATION REPRESENTATIVE STRM Testing Location [place] DEFAULT 07/09/2024 10:33 AM ENERGY CONSERVATION REPRESENTATIVE STRM Blood (Blood, Venous) 07/09/2024 5:55 AM ENERGY CONSERVATION REPRESENTATIVE 07/09/2024 10:33 AM ENERGY CONSERVATION REPRESENTATIVE Janeth Rojas P.A.-C. LAB BLOOD BANK TEST ORDERAB LES Final Result Performing Organization Address [facility] Co de Phone Number [facility] [address] STRM [facility] 200 [place] [address] * Fructosamine (07/09/2024 5:55 AM ENERGY CONSERVATION REPRESENTATIVE) Fructosamine, S 236 200 - 285 mcmol/L 07/09/2024 9:51 AM ENERGY CONSERVATION REPRESENTATIVE DTL Blood (Blood, Venous) 07/09/2024 5:55 AM ENERGY CONSERVATION REPRESENTATIVE 07/09/2024 9:23 AM ENERGY CONSERVATION REPRESENTATIVE Christoph Arce APRN C.N.P., D.N.P. LAB BL OOD ADD-ON Final Result Performing Organization Address City/[facility]/ZIP Co de Phone Number [facility] [address] DTL [facility] 200 [place] [address] * Thyroperoxidase (TPO) Antibodies (07/09/2024 5:55 AM ENERGY CONSERVATION REPRESENTATIVE) Thyroperoxidase Ab, S <15.0 <34.0 IU/mL 07/09/2024 9:10 AM ENERGY CONSERVATION REPRESENTATIVE DTL Blood 07/09/2024 5:55 AM ENERGY CONSERVATION REPRESENTATIVE 07/09/2024 8:39 AM ENERGY CONSERVATION REPRESENTATIVE Janeth Rojas P.A.-C. LAB BLOOD ADD-ON Final Resu lt Performing Organization Address City/[facility]/ZIP Co de Phone Number [facility] [address] [place] [address] * (ABNORMAL) T3 (Triiodothyronine), Total (07/09/2024 5:55 AM ENERGY CONSERVATION REPRESENTATIVE) T3 (Triiodothyroni ne), Total, S 79(L) 80 - 200 ng/dL 07/09/2024 9:10 AM ENERGY CONSERVATION REPRESENTATIVE DTL Blood 07/09/2024 5:55 AM ENERGY CONSERVATION REPRESENTATIVE 07/09/2024 8:39 AM ENERGY CONSERVATION REPRESENTATIVE us Janeth Rojas P.A.-C. LAB BLOOD ADD-ON Final Resu lt Performing Organization Address City/[facility] Co de Phone Number [facility] [address] [place] [address] * T4 (Thyroxine), Free (07/09/2024 5:55 AM ENERGY CONSERVATION REPRESENTATIVE) T4 (Thyroxine), Free, S 1.3 0.9 - 1.7 ng/dL 07/09/2024 9:10 AM ENERGY CONSERVATION REPRESENTATIVE DTL Blood (Blood, Venous) 07/09/2024 5:55 AM ENERGY CONSERVATION REPRESENTATIVE 07/09/2024 8:39 AM ENERGY CONSERVATION REPRESENTATIVE us Janeth Rojas P.A.-C. LAB BLOOD ADD-ON Final Resu lt Performing Organization Address City/[facility]/[place] [address] * DX Chest AP or PA and Lateral 2 Views (07/08/2024 6:30 PM ENERGY CONSERVATION REPRESENTATIVE) Anatomical Region Laterality Modality Chest, Thoracic RST LOS, Tho racic ARZ LOS, Thoracic FLA LOS N/A Digital Radiography Impressions 07/08/2024 7:13 PM ENERGY CONSERVATION REPRESENTATIVE Since 03/16/2022, interval development of mild interlobular septal thickening, increased prominence of the pulmonary vasculature, increased enlargement of the cardiac silhouette size consistent with mild pulmonary edema. New right lower lobe airspace opacity and small right pleural effusion may represent a superimposed infectious/inflammatory process. Linear subsegmental left lower lobe atelectasis or scarring. Elevated right hemidiaphragm. Narrative 07/08/2024 7:13 PM ENERGY CONSERVATION REPRESENTATIVE EXAM: DX CHEST AP OR PA AND [...] or scarring. Elevated right hemidiaphragm. Lanette Solis APRN C.N.P., M.S.N. IMG DIAGNO STIC IMAGING PROCEDURES Final Result * (ABNORMAL) NT-Pro B-Type Natriuretic Peptide (BNP) (07/08/2024 5:20 PM ENERGY CONSERVATION REPRESENTATIVE) NT-Pro BNP 7416(H) <=226 pg/mL 07/08/2024 6:21 PM ENERGY CONSERVATION REPRESENTATIVE DTL Comment: NT-proBNP values less than 300 [...] failure. Blood (Blood, Venous) 07/08/2024 5:20 PM ENERGY CONSERVATION REPRESENTATIVE 07/08/2024 5:58 PM ENERGY CONSERVATION REPRESENTATIVE Lanette Solis APRN, C.N.P., M.S.N. LAB BLOOD ADD-ON Final Result Performing Organization Address [facility] Co de Phone Number [facility] [address] [place] [address], [facility] [address] [place] [address] * Magnesium (07/08/2024 5:20 PM ENERGY CONSERVATION REPRESENTATIVE) Magnesium, S 2.3 1.7 - 2.3 mg/dL 07/08/2024 6:21 PM ENERGY CONSERVATION REPRESENTATIVE DTL Blood (Blood, Venous) 07/08/2024 5:20 PM ENERGY CONSERVATION REPRESENTATIVE 07/08/2024 5:58 PM ENERGY CONSERVATION REPRESENTATIVE Lanette Solis APRN, C.N.P., M.S.N. LAB BLOOD ADD-ON Final Result Performing Organization Address [facility] de Phone Number [facility] [address] [place] [address], [facility] [address] [place] [address] * (ABNORMAL) Comprehensive Metabolic Panel (07/08/2024 5:20 PM ENERGY CONSERVATION REPRESENTATIVE) Potassium, S 5.0 3.6 - 5.2 mmol/L 07/08/2024 6:21 PM ENERGY CONSERVATION REPRESENTATIVE DTL Sodium, S 140 135 - 145 mmol/L 07/08/2024 6:21 PM ENERGY CONSERVATION REPRESENTATIVE DTL Chloride, S 100 98 - 107 mmol/L 07/08/2024 6:21 PM ENERGY CONSERVATION REPRESENTATIVE DTL Bicarbonate, S 28 22 - 29 mmol/L 07/08/2024 6:21 PM ENERGY CONSERVATION REPRESENTATIVE DTL Anion Gap 12 7 - 15 07/08/2024 6:21 PM ENERGY CONSERVATION REPRESENTATIVE DTL BUN (Blood Urea Nitrogen), S 40(H) 6 - 21 mg/dL 07/08/2024 6:21 PM ENERGY CONSERVATION REPRESENTATIVE DTL Creatinine 1.30(H) 0.59 - 1.04 mg/dL 07/08/2024 6:21 PM ENERGY CONSERVATION REPRESENTATIVE DTL Estimated GFR (eGFR) 48(L) >=60 mL/min/BS A 07/08/2024 6:21 PM ENERGY CONSERVATION REPRESENTATIVE DTL Comment: Estimated GFR calculated using the 2020 CKD_EPI creatinine equation. Calcium, Total, S 8.5(L) 8.6 - 10.0 mg/dL 07/08/2024 6:21 PM ENERGY CONSERVATION REPRESENTATIVE DTL Glucose, S 146(H) 70 - 140 mg/dL 07/08/2024 6:21 PM ENERGY CONSERVATION REPRESENTATIVE DTL Protein, Total, S 5.6(L) 6.3 - 7.9 g/dL 07/08/2024 6:21 PM ENERGY CONSERVATION REPRESENTATIVE DTL Albumin, S 3.9 3.5 - 5.0 g/dL 07/08/2024 6:21 PM ENERGY CONSERVATION REPRESENTATIVE DTL Aspartate Aminotransferase (AST), S 49(H) 8 - 43 U/L 07/08/2024 6:21 PM ENERGY CONSERVATION REPRESENTATIVE DTL Alkaline Phosphatase, S 267(H) 35 - 104 U/L 07/08/2024 6:21 PM ENERGY CONSERVATION REPRESENTATIVE DTL Alanine Aminotransferase (ALT), S 42 7 - 45 U/L 07/08/2024 6:21 PM ENERGY CONSERVATION REPRESENTATIVE DTL Bilirubin, Total, S 1.2 0.0 - 1.2 mg/dL 07/08/2024 6:21 PM ENERGY CONSERVATION REPRESENTATIVE DTL Blood (Blood, Venous) 07/08/2024 5:20 PM ENERGY CONSERVATION REPRESENTATIVE 07/08/2024 5:58 PM ENERGY CONSERVATION REPRESENTATIVE Lanette Solis APRN, C.N.P., M.S.N. LAB BLOOD ADD-ON Final Result [facility] [address] [place] [address], [facility] DTL [facility] [address] [place] [address] * (ABNORMAL) CBC without Differential (07/08/2024 5:20 PM ENERGY CONSERVATION REPRESENTATIVE) Hemoglobin 6.8(L) 11.6 - 15.0 g/dL 07/08/2024 5:52 PM ENERGY CONSERVATION REPRESENTATIVE DTL Hematocrit 22.4(L) 35.5 - 44.9 % 07/08/2024 5:52 PM ENERGY CONSERVATION REPRESENTATIVE DTL Erythrocytes 2.44(L) 3.92 - 5.13 x10(12)/L 07/08/2024 5:52 PM ENERGY CONSERVATION REPRESENTATIVE DTL MCV 91.8 78.2 - 97.9 fL 07/08/2024 5:52 PM ENERGY CONSERVATION REPRESENTATIVE DTL RBC Distrib Width 23.1(H) 12.2 - 16.1 % 07/08/2024 5:52 PM ENERGY CONSERVATION REPRESENTATIVE DTL Platelet Count 392(H) 157 - 371 x10(9)/L 07/08/2024 6:39 PM ENERGY CONSERVATION REPRESENTATIVE DTL Comment:Results confirmed by smear, no clumping or interference seen. Leukocytes 32.3(H) 3.4 - 9.6 x10(9)/L 07/08/2024 6:39 PM ENERGY CONSERVATION REPRESENTATIVE DTL Comment:Corrected for normob lasts. Blood (Blood, Venous) 07/08/2024 5:20 PM ENERGY CONSERVATION REPRESENTATIVE 07/08/2024 5:43 PM ENERGY CONSERVATION REPRESENTATIVE Vanda Cruz APRN.N.P., M.S.N. LAB BLOOD ADD-ON Final Result [address] [address], [facility] [address] [address] documented in this encounter Visit Diagnoses Diagnosis [...] fever, Starting on Aruna 07/08/24 at 1628 Given 07/15/2024 8:38 AM ENERGY CONSERVATION REPRESENTATIVE 1,000 mg allopurinoL tablet 300 mg (Zyloprim) 300 mg, oral, Daily, First dose on Fri07/09/24 at 0900 Given 07/16/2024 8:08 AM ENERGY CONSERVATION REPRESENTATIVE 300 mg Given 07/15/2024 8:38 AM ENERGY CONSERVATION REPRESENTATIVE 300 mg Given 07/14/2024 8:42 AM ENERGY CONSERVATION REPRESENTATIVE 300 mg heparin (porcine) injection 7,500 Units 7,500 Units, subcutaneous, Every 8 hours scheduled, First dose (after last reorder) on Fri07/15/24 at 2200 Given 07/16/2024 4:23 AM ENERGY CONSERVATION REPRESENTATIVE 7,500 Units Right Upper Arm (Back) Given 07/15/2024 11:00 PM ENERGY CONSERVATION REPRESENTATIVE 7,500 Units Left Lower Abdomen hydroxyurea capsule 500 mg (Hydrea) 500 mg, oral, 2 times daily, First dose on Fri07/08/24 at 2100, HAZARDOUS - Handle with care. Swallow whole. Do NOT crush, chew or open capsule. Given 07/16/2024 8:08 AM ENERGY CONSERVATION REPRESENTATIVE 500 mg Given 07/15/2024 8:23 PM ENERGY CONSERVATION REPRESENTATIVE 500 mg Given 07/15/2024 8:38 AM ENERGY CONSERVATION REPRESENTATIVE 500 mg hydrOXYzine tablet 50 mg (Atarax) 50 mg, oral, Every 6 hours PRN, itching, allergies, anxiety, Starting on Aruna 07/08/24 at 1643 Given 07/12/2024 12:12 PM ENERGY CONSERVATION REPRESENTATIVE 50 mg Given 07/12/2024 2:44 AM ENERGY CONSERVATION REPRESENTATIVE 50 mg Given 07/09/2024 2:27 PM ENERGY CONSERVATION REPRESENTATIVE 50 mg lidocaine 10 mg/mL (1 %) injection (Xylocaine) Code/trauma/sedation medication, Starting on Fri07/15/24 at 1104, Intraprocedure (CV) Given 07/15/2024 11:04 AM ENERGY CONSERVATION REPRESENTATIVE 5 mL Right Neck medical cannabis tablet 2 tablet 2 tablet, oral, Every 8 hours PRN, pain, Starting on Aruna 07/08/24 at 1952, A patient specific Medical Cannabis (Patient's Own Supply) Controlled Substance Disposition and Inventory Record form [id number]) must be used to document placement of the product in storage, dose retrieval for administration and witnessed waste as applicable., THC component: (in mg): 10, CBD component: (in mg): 0, Indications: muscle spasm, painIndications:muscle spasm,pain Given 07/15/2024 11:08 PM ENERGY CONSERVATION REPRESENTATIVE 2 tablets Given 07/15/2024 3:00 PM ENERGY CONSERVATION REPRESENTATIVE 2 tablets Given 07/15/2024 4:56 AM ENERGY CONSERVATION REPRESENTATIVE 2 tablets melatonin tablet 3 mg 3 mg, oral, Daily at bedtime, First dose on 07/12/24 at 2100 Given 07/15/2024 8:23 PM ENERGY CONSERVATION REPRESENTATIVE 3 mg Given 07/14/2024 8:10 PM ENERGY CONSERVATION REPRESENTATIVE 3 mg Given 07/13/2024 9:09 PM ENERGY CONSERVATION REPRESENTATIVE 3 mg morphine ER tablet 30 mg (MS Contin) 30 mg, oral, 2 times daily, First dose (after last modification) on 07/10/24 at 1600, Swallow whole. Do NOT crush, chew, or split tablet. Given 07/16/2024 4:23 AM ENERGY CONSERVATION REPRESENTATIVE 30 mg Given 07/15/2024 5:57 PM ENERGY CONSERVATION REPRESENTATIVE 30 mg Given 07/15/2024 4:48 AM ENERGY CONSERVATION REPRESENTATIVE 30 mg oxyCODONE IR tablet 5 mg (Roxicodone) 5 mg, oral, Every 6 hours PRN, moderate pain or score 4-6 of 10, Starting on Aruna 07/08/24 at 1708 Given 07/10/2024 5:57 AM ENERGY CONSERVATION REPRESENTATIVE 5 mg Given 07/08/2024 5:30 PM ENERGY CONSERVATION REPRESENTATIVE [address] tablet 40 mg (Protonix) 40 mg, oral, Daily before morning meal, First dose on 07/09/24 at 0700, pantoprazole 40 mg oral daily was interchanged for omeprazole 20 or 40 mg oral daily Swallow whole. Do NOT crush, chew, or split tablet. Given 07/16/2024 6:49 AM ENERGY CONSERVATION REPRESENTATIVE 40 mg Given 07/15/2024 7:03 AM ENERGY CONSERVATION REPRESENTATIVE 40 mg Given 07/14/2024 6:23 AM ENERGY CONSERVATION REPRESENTATIVE 40 mg polyethylene glycol powder packet 17 g (Miralax) 17 g, oral, Daily PRN, constipation, Starting on 07/10/24 at 0842, Dissolve in 240 mLs (8 ounces) of water prior to giving. Avoid mixing with starch-based thickened liquids. sennosides tablet 17.2 mg (Senokot) 17.2 mg, oral, 2 times daily PRN, constipation, Starting on Fri07/10/24 at 0842 sildenafil tablet 20 mg (Revatio) 20 mg, oral, 3 times daily, First dose on Fri07/08/24 at 2100, For 22 days Given 07/16/2024 8:08 AM ENERGY CONSERVATION REPRESENTATIVE 20 mg Given 07/15/2024 8:23 PM ENERGY CONSERVATION REPRESENTATIVE 20 mg Given 07/15/2024 1:34 PM ENERGY CONSERVATION REPRESENTATIVE 20 mg sodium chloride 0.9 % injection 3 mL 3 mL, intravenous, As needed, line care, Starting on Fri07/08/24 at 1628, Prior to and following infusion and between multiple consecutive infusions: sodium chloride 0.9 % injection Given 07/13/2024 9:18 PM ENERGY CONSERVATION REPRESENTATIVE 3 mL sodium chloride 0.9 % injection 3 mL 3 mL, intravenous, Every 12 hours scheduled, First dose on Fri07/08/24 at 2100, Peripheral Intravenous Catheter and Rapid Infusion Catheter, when no infusion to maintain patency Given 07/16/2024 8: 09 AM ENERGY CONSERVATION REPRESENTATIVE 3 mL Given 07/15/2024 8:23 PM ENERGY CONSERVATION REPRESENTATIVE 3 mL Given 07/15/2024 8:43 AM ENERGY CONSERVATION REPRESENTATIVE 3 mL torsemide tablet 60 mg (Demadex) 60 mg, oral, 2 times daily before morning and evening meals, First dose on Fri07/16/24 at 0700 Given 07/16/2024 6:49 AM ENERGY CONSERVATION REPRESENTATIVE 60 mg traZODone tablet 25 mg (DesyreL) 25 mg, oral, Daily at bedtime, First dose (after last modification) on Fri07/13/24 at 2100 Given 07/15/2024 8:23 PM ENERGY CONSERVATION REPRESENTATIVE 25 mg Given 07/14/2024 8:10 PM ENERGY CONSERVATION REPRESENTATIVE 25 mg Given 07/13/2024 9:09 PM ENERGY CONSERVATION REPRESENTATIVE 25 mg documented in this encounter Active and Recently Administered Medications Times are shown in ENERGY CONSERVATION REPRESENTATIVE. Scheduled Medication Order 07/14/2024 07/15/2024 07/16/2024 allopurinoL [...] Graves, R.N.)2100 (Given - Provider: Geneva Antonio R.N.) 0703 (Given - Provider: Sheridan Dorsey R.N.) heparin (porcine) injection 7,500 Units 7,500 Units, subcutaneous, Every 8 hours scheduled, First dose (after last reorder) on Aruna 07/15/24 at 2200 2300 (Given - Provider: [facility] R.N., [facility], [facility]) 0423 (Given - Provider: Paulina Aguirre R.N.) hydroxyurea capsule 500 mg (Hydrea) 500 mg, oral, 2 times daily, First dose on Aruna 07/08/24 at 2100, HAZARDOUS - Handle with care. Swallow whole. Do NOT crush, chew or open capsule. 0842 (Given - Provider: CHARLEEN Graves, R.N.)2012 (Given - Provider: Geneva Antonio RZahraaN.) 0838 (Given - Provider: Kamala Butler R.N.)1041 ([facility] Hold - Provider: Transfer Provider, Automatic - Reason: Patient not available)1231 ([facility] Unhold - Provider: Transfer Provider, Automatic)2022 (Given - Provider: Bean Mosquera R.N., [facility], [facility]) 0808 (Given - Provider: Geneva Antonio R.N.) melatonin tablet 3 mg 3 mg, oral, Daily at bedtime, First dose on 07/12/24 at 2100 2009 (Given - Provider: Geneva Antonio RZahraaN.) 1041 ([facility] Hold - Provider: Transfer Provider, Automatic - Reason: Patient not available)123 ([facility] Unhold - Provider: Transfer Provider, Automatic)2022 (Given - Provider: Bean Mosquera REstefania, [facility], [facility]) morphine ER tablet 30 mg (MS Contin) 30 mg, oral, 2 times daily, First dose (after last modification) on 07/10/24 at 1600, Swallow whole. Do NOT crush, chew, or split tablet. 0447 (Given - Provider: Sheridan Dorsey R.N.)1619 (Given - Provider: CHARLEEN Graves, R.N.) 0448 (Given - Provider: Sheridan Dorsey R.N.)1041 ([facility] Hold - Provider: Transfer Provider, Automatic - Reason: Patient not available)1231 ([facility] Unhold - Provider: Transfer Provider, Automatic)1757 (Given - Provider: Bean Mosquera RShirin., [facility], [facility]) 0423 (Given - Provider: Paulina Aguirre R.N.) pantoprazole DR tablet 40 mg (Protonix) 40 mg, oral, Daily before morning meal, First dose on Fri07/09/24 at 0700, pantoprazole 40 mg oral daily was interchanged for omeprazole 20 or 40 mg oral daily Swallow whole. Do NOT crush, chew, or split tablet. 0623 (Given - Provider: Sheridan Dorsey R.N.) 0703 (Given - Provider: Sheridan Dorsey RZahraaN.)1041 ([facility] Hold - Provider: Transfer Provider, Automatic - Reason: Patient not available)1231 ([facility] Unhold - Provider: Transfer Provider, Automatic) 0649 (Given - Provider: Paulina Aguirre R.N.) sildenafil tablet 20 mg (Revatio) 20 mg, oral, 3 times daily, First dose on Aruna 07/08/24 at 2100, For 22 days 0842 (Given - Provider: CHARLEEN Graves, R.N.)1456 (Given - Provider: CHARLEEN Graves, R.N.)2009 (Given - Provider: Geneva Antonio R.N.) 0838 (Given - Provider: Kamala Butler R.N.)1041 ([facility] Hold - Provider: Transfer Provider, Automatic - Reason: Patient not available)1231 ([facility] Unhold - Provider: Transfer Provider, Automatic)1334 (Given - Provider: Joselin Baptiste RZahraaN.)2022 (Given - Provider: Bean Mosquera R.N., [facility], [facility]) 0808 (Given - Provider: Geneva Antonio, R.N.) sodium chloride 0.9 % injection 3 mL 3 mL, intravenous, Every 12 hours scheduled, First dose on Aruna 07/08/24 at 2100, Peripheral Intravenous Catheter and Rapid Infusion Catheter, when no infusion to maintain patency 0847 (Given - Provider: CHARLEEN Graves, R.N.)2013 (Given - Provider: [place] Antonio R.N.) 0843 (Given - Provider: Kamala Butler R.N.)1041 ([facility] Hold - Provider: Transfer Provider, Automatic - Reason: Patient not available)1231 ([facility] Unhold - Provider: Transfer Provider, Automatic)2022 (Given - Provider: Bean Mosquera R.N., [facility], [facility]) 0809 (Given - Provider: Geneva Antonio R.N.) [...] 2100 2010 (Given - Provider: Geneva Antonio REstefania) 1041 ([facility] Hold - Provider: Transfer Provider, Automatic - Reason: Patient not available)1231 ([facility] Unhold - Provider: Transfer Provider, Automatic)2022 (Given - Provider: Bean Mosquera R.N., [facility], [facility]) PRN Medication Order 07/14/2024 07/15/2024 07/16/2024 acetaminophen tablet 1,000 mg (TylenoL) 1,000 mg, oral, Every 6 hours PRN, mild pain or score 1-3 of 10, fever, Notify sevice prior to first administration for fever, Starting on Aruna 07/08/24 at 1628 0838 (Given - Provider: Kamala Butler R.N.)1041 ([facility] Hold - Provider: Transfer Provider, Automatic - Reason: Patient not available)1231 ([facility] Unhold - Provider: Transfer Provider, Automatic) bisacodyL DR tablet 10 mg (Dulcolax) 10 mg, oral, Daily PRN, constipation, Starting on Aruna 07/08/24 at 1628, PO route preferred. Constipation unrelieved by docusate sodium (COLACE) if ordered. If results needed within 2 hours give rectal suppository if ordered. Swallow whole. Do NOT crush, chew, or split tablet. 1041 ([facility] Hold - Provider: Transfer Provider, Automatic - Reason: Patient not available)1231 ([facility] Unhold - Provider: Transfer Provider, Automatic) bisacodyL suppository 10 mg (Dulcolax) 10 mg, rectal, Daily PRN, constipation, Starting on Aruna 07/08/24 at 1628, PO route preferred. Constipation unrelieved by docusate sodium (COLACE) if ordered. If results needed within 2 hours - give rectal suppository. 1041 ([facility] Hold - Provider: Transfer Provider, Automatic - Reason: Patient not available)1231 ([facility] Unhold - Provider: Transfer Provider, Automatic) calcium carbonate chewable tablet 400 mg of calcium (Tums) 400 mg of calcium, oral, Every 2 hour PRN, indigestion, Not to exceed 12 tablets in 24 hours, Starting on Aruna 07/08/24 at 1628, Doses listed are in mg of elemental calcium. Take with food. 500 mg calcium carbonate contains 200 mg of elemental calcium. 1041 ([facility] Hold - Provider: Transfer Provider, Automatic - Reason: Patient not available)1231 ([facility] Unhold - Provider: Transfer Provider, Automatic) hydrOXYzine tablet 50 mg (Atarax) 50 mg, oral, Every 6 hours PRN, itching, allergies, anxiety, Starting on Aruna 07/08/24 at 1643 1041 ([facility] Hold - Provider: Transfer Provider, Automatic - Reason: Patient not available)1231 ([facility] Unhold - Provider: Transfer Provider, Automatic) lidocaine [...] Controlled Substance Disposition and Inventory Record form [id number]) must be used to document placement of the product in storage, dose retrieval for administration and witnessed waste as applicable., THC component: (in mg): 10, CBD component: (in mg): 0, Indications: muscle spasm, pain 0242 (Given - Provider: Sheridan Dorsey RZahraaN.)1140 (Given - Provider: CHARLEEN Graves, R.N.)2015 (Given - Provider: [place] Antonio R.N.) 0456 (Given - Provider: Sheridan Dorsey R.N.)1041 ([facility] Hold - Provider: Transfer Provider, Automatic - Reason: Patient not available)1231 ([facility] Unhold - Provider: Transfer Provider, Automatic)1500 (Given - Provider: Joselin Baptiste R.N.)2308 (Given - Provider: Bean Mosquera R.N., [facility], [facility]) oxyCODONE IR tablet 5 mg (Roxicodone) 5 mg, oral, Every 6 hours PRN, moderate pain or score 4-6 of 10, Starting on Aruna 07/08/24 at 1708 1041 ([facility] Hold - Provider: Transfer Provider, Automatic - Reason: Patient not available)1231 ([facility] Unhold - Provider: Transfer Provider, Automatic) polyethylene glycol powder packet 17 g (Miralax) 17 g, oral, Daily PRN, constipation, Starting on 07/10/24 at 0842, Dissolve in 240 mLs (8 ounces) of water prior to giving. Avoid mixing with starch-based thickened liquids. 1041 ([facility] Hold - Provider: Transfer Provider, Automatic - Reason: Patient not available)1231 ([facility] Unhold - Provider: Transfer Provider, Automatic) sennosides tablet 17.2 mg (Senokot) 17.2 mg, oral, 2 times daily PRN, constipation, Starting on 07/10/24 at 0842 1041 ([facility] Hold - Provider: Transfer Provider, Automatic - Reason: Patient not available)1231 ([facility] Unhold - Provider: Transfer Provider, Automatic) sodium chloride 0.9 % injection 10 mL 10 mL, intravenous, As needed, line care, Starting on Aruna 07/08/24 at 1628, Peripheral Intravenous Catheter and Rapid Infusion Catheter, prior to blood sampling, post blood transfusion or post blood sampling 1041 ([facility] Hold - Provider: Transfer Provider, Automatic - Reason: Patient not available)1231 ([facility] Unhold - Provider: Transfer Provider, Automatic) sodium chloride 0.9 % injection 3 mL 3 mL, intravenous, As needed, line care, Starting on Aruna 07/08/24 at 1628, Prior to and following infusion and between multiple consecutive infusions: sodium chloride 0.9 % injection 1041 ([facility] Hold - Provider: Transfer Provider, Automatic - Reason: Patient not available)1231 ([facility] Unhold - Provider: Transfer Provider, Automatic) documented in this encounter Additional Health Concerns Infection Onset Date Last Indicated Resolved Time COVID19 Pending 07/12/2024 07/12/2024 07/12/2024 1 :03 PM ENERGY CONSERVATION REPRESENTATIVE documented as of this encounter Care Teams Import/Export Specialist Relationship Specialty Start Date End Date Elsewhere, Pcp PCP - General Internal Medicine 01/30/24 documented as of this encounter
--- OUTSIDE RECORDS SUMMARY | 2024-07-21 11:44 | XMS_ITS | Encounter Summary ---
Author Organization [facility] Address [address] [place] [id number] Care Team Providers Care Plant Protection Officer Name Role Phone Elsewhere, Pcp Primary Care Provider Unavailabl e Encounter Details Date Type Department Care Team ([facility] st Contact Info) Description 06/07/2024 5:00 PM NUTRITIONIST - 06/08/2024 5:04 AM NUTRITIONIST Emergency [facility] Department [address] [place] [address] [phone] Discharge Disposition: ED Dismiss - Never Arrived Social History Tobacco Use Types Packs/Day Years [...] Sex Assigned at Female 07/24/2021 11:03 AM NUTRITIONIST Legal Sex Female 9:12 PM NUTRITIONIST Gender Identity Female 07/24/2021 11:03 AM NUTRITIONIST Sexual Orientation Straight 07/24/2021 11 :03 AM NUTRITIONIST documented as of this encounter Medications at Time of Discharge acetaminophen (TYLENOL) 500 mg tablet Take 2 tablets (1,000 mg total) by mouth every 6 (six) hours as needed for pain (Do not exceed 4000mg/day.). 03/18/2022 diphenhydrAMINE-ac etaminophen (TYLENOL PM) 25-500 mg per [...] by mouth daily. 90 capsule 3 01/22/2024 sennosides (SENOKOT) 8.6 mg tablet Take 2 [...] known because they are new for her. allopurinoL (ZYLOPRIM) 300 mg tablet take 1 tablet by mouth daily 90 tablet 3 05/23/2023 4 buPROPion XL (WELLBUTRIN XL) 150 mg 24 hr tablet Take 150 mg by mouth daily. 11/22/2022 4 oxyCODONE (ROXICODONE) 5 mg immediate release tabletIndications: Acute Pain Exception Take 1 tablet (5 mg total) by mouth 2 (two) times a day Indication: Acute Pain Exception. 8 tablet 03/25/2022 4 predniSONE (Deltasone) 20 mg tablet Take 1 tablet by mouth 2 (two) times a day. 11/11/2023 4 RX WELCOME [id number]-W P ONLY Welcome packet 1 each 07/28/2023 2:07 PM NUTRITIONIST 07/18/2023 4 torsemide (Demadex) 20 mg tablet Take 2 tablets (40 mg total) by mouth 2 (two) times a day. 120 tablet 11 03/05/2024 5 documented as of this encounter Plan of Treatment Upcoming Encounters Date Type Department Care Team (Late st Contact Info) Description 08/10/2024 8:30 AM NUTRITIONIST Telemedicine Division of Hematology in [place], [place] [address] [place] [phone] Isidro Zamarripa M.B., B.Ch. [address] [place] [phone] 08/26/2024 8:30 AM NUTRITIONIST Appointment Department of Laboratory Medicine and Pathology, [facility] in [place], [place] [address] [place] [address] [phone] Matthew Mayes M.D. [address] [place] [address] [phone] 08/26/2024 9:00 AM NUTRITIONIST Appointment Department of Cardiac Rehabilitation in [place], [place] [address] [place] [address] [phone] Matthew Mayes M.D. [address] [place] [phone] 08/26/2024 11:00 AM NUTRITIONIST Clinical Support Department of Nutrition and Diabetes Education in [place], [place] [address] [place] [phone] Matthew Mayes M.D. [address] [place] [phone] Karmen Zambrano, JOSE, LD [address] [place] [phone] 08/27/2024 10:30 AM NUTRITIONIST Office Visit Department of Cardiovascular Medicine in [place], [place] [address] [place] [phone] Matthew Mayes M.D. [address] [place] [phone] 09/14/2024 12:00 PM NUTRITIONIST Appointment Department of Laboratory Medicine and Pathology, [facility] in [place], [place] [address] [place] [phone] Janusz Govea M.B.B.S. [address] [place] [phone] 09/14/2024 2:00 PM NUTRITIONIST Office Visit Division of Hematology in [place], [place] [address] [place] [phone] Janusz Govea M.B.B.S. [address] [place] [phone] documented as of this encounter Visit Diagnoses Not on filedocumented in this encounter Care Teams Plant Protection Officer Relationship Specialty Start Date End Date Elsewhere, Pcp PCP - General Internal Medicine 01/30/24 documented as of this encounter
--- OUTSIDE RECORDS SUMMARY | 2024-07-21 11:44 | XMS_ITS | Encounter Summary ---
Author Organization [facility] Address [address] [place] [id number] Care Team Providers Care Automobile Inspector Name Role Phone Elsewhere, Pcp Primary Care Provider Unavailabl e Reason for Visit * Reason Onset Date Comments hemoglobin decrease 06/01/2024 Encounter Details Date Type Department Care Team (Latest Contact Info) Description 06/01/2024 Clinical Communication Division of Hematology in [place], [place] [address] [place] [phone] Janusz Govea M.B.BZahraaS. [address] [place] [phone] hemoglobin decrease Social History Tobacco Use Types [...] Sex Assigned at Female 07/24/2021 11:03 AM BAND SAW OPERATOR CAKE CUTTING Legal Sex Female 9:12 PM BAND SAW OPERATOR CAKE CUTTING Gender Identity Female 07/24/2021 11:03 AM BAND SAW OPERATOR CAKE CUTTING Sexual Orientation Straight 07/24/2021 11 :03 AM BAND SAW OPERATOR CAKE CUTTING documented as of this encounter Plan of Treatment Upcoming Encounters Date Type Department Care Team (Late st Contact Info) Description 08/10/2024 8:30 AM BAND SAW OPERATOR CAKE CUTTING Telemedicine Division of Hematology in [place], [place] [address] [place] [phone] Isidro Zamarripa M.B., B.Ch. [address] [place] [phone] 08/26/2024 8:30 AM BAND SAW OPERATOR CAKE CUTTING Appointment Department of Laboratory Medicine and Pathology, [facility] in [place], [place] [address] [place] [phone] Matthew Mayes M.D. [address] [place] [phone] 08/26/2024 9:00 AM BAND SAW OPERATOR CAKE CUTTING Appointment Department of Cardiac Rehabilitation in [place], [place] [address] [place] [phone] Matthew Mayes M.D. [address] [place] [phone] 08/26/2024 11:00 AM BAND SAW OPERATOR CAKE CUTTING Clinical Support Department of Nutrition and Diabetes Education in [place], [place] [address] [place] [phone] Matthew Mayes M.D. [address] [place] [phone] Karmen Zambrano, JOSE, LD [address] [place] [phone] 08/27/2024 10:30 AM BAND SAW OPERATOR CAKE CUTTING Office Visit Department of Cardiovascular Medicine in [place], [place] [address] [place] [phone] Matthew Mayes M.D. [address] [place] [phone] 09/14/2024 12:00 PM BAND SAW OPERATOR CAKE CUTTING Appointment Department of Laboratory Medicine and Pathology, [facility], in [place], [place] [address] [place] [phone] Janusz Govea M.B.B.S. [address] [place] [phone] 09/14/2024 2:00 PM BAND SAW OPERATOR CAKE CUTTING Office Visit Division of Hematology in [place], [place] [address] [place] [phone] Janusz Govea M.B.BZahraaS. [address] [place] [phone] documented as of this encounter Visit Diagnoses Not on filedocumented in this encounter Care Teams Automobile Inspector Relationship Specialty Start Date End Date Elsewhere, Pcp PCP - General Internal Medicine 01/30/24 documented as of this encounter
--- OUTSIDE RECORDS SUMMARY | 2024-07-21 11:44 | XMS_ITS | Encounter Summary ---
Author Organization [facility] Address [address] [place] [address] Care Team Providers Care Custom Miller Name Role Phone Elsewhere, Pcp Primary Care Provider Unavailabl e Encounter Details Date Type Department Care Team (Late st Contact Info) Description 06/07/2024 Orders Only Division of Hematology in [place], [place] [address] [place] [phone] External, Ordering ProviderDewayne Social History Tobacco Use [...] Sex Assigned at Female 07/24/2021 11:03 AM TOP CLOSER Legal Sex Female 9:12 PM TOP CLOSER Gender Identity Female 07/24/2021 11:03 AM TOP CLOSER Sexual Orientation Straight 07/24/2021 11 :03 AM TOP CLOSER documented as of this encounter Miscellaneous Notes * Result Encounter Note - Dena Junior R.N. - 06/08/2024 9:51 AM TOP CLOSER MF luspatercept at 1 mg/kg every 3 weeks. Hydrea 500 mg twice daily Thank you, Dena RN CLOSER documented in this encounter Plan of Treatment Upcoming Encounters Date Type Department Care Team (Late st Contact Info) Description 08/10/2024 8:30 AM TOP CLOSER Telemedicine Division of Hematology in [place], [place] [address] [place] [address] [phone] Isidro Zamarripa M.B., B.Ch. [address] [place] [phone] 08/26/2024 8:30 AM TOP CLOSER Appointment Department of Laboratory Medicine and Pathology, [facility] in [place], [place] [address] [place] [phone] Matthew Mayes M.D. [address] [place] [phone] 08/26/2024 9:00 AM TOP CLOSER Appointment Department of Cardiac Rehabilitation in [place], [place] [address] [place] [phone] Matthew Mayes M.D. [address] [place] [phone] 08/26/2024 11:00 AM TOP CLOSER Clinical Support Department of Nutrition and Diabetes Education in [place], [place] [address] [place] [phone] Matthew Mayes M.D. [address] [place] [phone] Karmen Zambrano, JOSE, LD [address] [place] [phone] 08/27/2024 10:30 AM TOP CLOSER Office Visit Department of Cardiovascular Medicine in [place], [place] [address] [place] [phone] Matthew Mayes M.D. [address] [place] [phone] 09/14/2024 12:00 PM TOP CLOSER Appointment Department of Laboratory Medicine and Pathology, [facility], in [place], [place] [address] [place] [phone] Janusz Govea M.B.B.S. [address] [place] [address] [phone] 09/14/2024 2:00 PM TOP CLOSER Office Visit Division of Hematology in [place], [place] [address] [place] [phone] Janusz Govea M.B.B.S. [address] [place] [phone] documented as of this encounter Procedures Procedure Name Priority Date/Time Associated Diagnosis Comments BASIC METABOLIC PANEL, S/P Routine 06/07/2024 12:00 PM TOP CLOSER CBC WITH DIFFERENTIAL, B Routine 06/07/2024 11:59 AM TOP CLOSER documented in this encounter Results * (ABNORMAL) Basic Metabolic Panel (06/07/2024 12:00 PM TOP CLOSER) EXT Sodium 140 135 - 149 mmol/L SCANNED REPORT EXT Potassium 3.9 3.6 - 5.1 mmol/L SCANNED REPORT EXT Chloride 100 96 - 114 mmol/L SCANNED REPORT EXT CO2 37(H) 20 - 32 mmol/L SCANNED REPORT EXT BUN (Blood Urea Nitrogen) 42(H) 7 - 30 mg/dL SCANNED REPORT EXT Creatinine 1.0 0.5 - 1.5 mg/dL SCANNED REPORT EXT Estimated GFR (eGFR) 66 ml/min SCANNED REPORT EXT Calcium, Total 8.9 8.4 - 10.6 mg/dL SCANNED REPORT EXT Glucose 99 60 - 115 mg/dL SCANNED REPORT 06/07/2024 12:0 0 PM TOP CLOSER Narrative SCANNED REPORT - 06/07/2024 12:00 PM TOP CLOSER External results verified in Extract by Zeinab Alan on 06/08/2024 at 09:[address] Govea us Ordering Provider External Dewayne LAB BLOOD ADD-ON Final Result SCANNED REPORT * (ABNORMAL) CBC with Differential, Blood (06/07/2024 11:59 AM TOP CLOSER) EXT RBC 2.51(L) 4.00 - 5.20 m/uL SCANNED REPORT EXT Hemoglobin 7.2(L) 12.0 - 16.0 gm/dL SCANNED REPORT EXT Hematocrit 23.9(L) 33.0 - 51.0 % SCANNED REPORT EXT MCV 95 80 - 100 ML SCANNED REPORT EXT Platelet Count 598(H) 140 - 440 K/uL SCANNED REPORT EXT Neutrophils 18.00(H) 1.7 - 7.0 K/uL SCANNED REPORT EXT Lymphocytes 4.60(H) 0.90 - 2.90 K/uL SCANNED REPORT EXT Monocytes 2.30(H) 0.00 - 0.90 K/UL SCANNED REPORT EXT Basophils 2.80(H) 0.00 - 0.30 K/uL SCANNED REPORT 06/07/2024 11:5 9 AM TOP CLOSER Narrative [facility] - 06/07/2024 11:59 AM TOP CLOSER Source result document attached to Order Number [id number] ([id number]) dated 06/07/2024. External results verified in Extract by Zeinab Alan on 06/08/2024 at 09:[address] Govea us Ordering Provider External Dewayne LAB BLOOD ADD-ON Final Result [facility] NA SCANNED REPORT documented in this encounter Visit Diagnoses Not on filedocumented in this encounter Care Teams Custom Miller Relationship Specialty Start Date End Date Elsewhere, Pcp PCP - General Internal Medicine 01/30/24 documented as of this encounter
--- OUTSIDE RECORDS SUMMARY | 2024-07-21 11:44 | XMS_ITS | Encounter Summary ---
Author Organization [facility] Address [address] [place] [phone] Care Team Providers Care Petroleum Engineer Name Role Phone Elsewhere, Pcp Primary Care Provider Unavailabl e Reason for Visit * Reason Onset Date Comments Appt Request 06/29/2024 Encounter Details Date Type Department Care Team ([facility] st Contact Info) Description 06/29/2024 Clinical Communication Division of Hematology in [place], [place] [address] [place] [phone] Isidro Zamarripa M.B., B.Ch. [address] [place] [phone] Appt Request Social History Tobacco Use Types [...] Sex Assigned at Female 07/24/2021 11:03 AM BUSINESS DEAN Legal Sex Female 9:12 PM BUSINESS DEAN Gender Identity Female 07/24/2021 11:03 AM BUSINESS DEAN Sexual Orientation Straight 07/24/2021 11 :03 AM BUSINESS DEAN documented as of this encounter Plan of Treatment Upcoming Encounters Date Type Department Care Team (Late st Contact Info) Description 08/10/2024 8:30 AM BUSINESS DEAN Telemedicine Division of Hematology in [place], [place] [address] [place] [address] [phone] Isidro Zamarripa M.B., B.Ch. [address] [place] [phone] 08/26/2024 8:30 AM BUSINESS DEAN Appointment Department of Laboratory Medicine and Pathology, [facility] in [place], [place] [address] [place] [phone] Matthew Mayes M.D. [address] [place] [phone] 08/26/2024 9:00 AM BUSINESS DEAN Appointment Department of Cardiac Rehabilitation in [place], [place] [address] [place] [phone] Matthew Mayes M.D. [address] [place] [phone] 08/26/2024 11:00 AM BUSINESS DEAN Clinical Support Department of Nutrition and Diabetes Education in [place], [place] [address] [place] [phone] Matthew Mayes M.D. [address] [place] [phone] Karmen Zambrano, JOSE, LD [address] [place] [phone] 08/27/2024 10:30 AM BUSINESS DEAN Office Visit Department of Cardiovascular Medicine in [place], [place] [address] [place] [phone] Matthew Mayes M.D. [address] [place] [phone] 09/14/2024 12:00 PM BUSINESS DEAN Appointment Department of Laboratory Medicine and Pathology, [facility], in [place], [place] [address] [place] [phone] Janusz Govea M.B.B.S. [address] [place] [phone] 09/14/2024 2:00 PM BUSINESS DEAN Office Visit Division of Hematology in [place], [place] [address] [place] [phone] Janusz Govea M.B.B.S. [address] [place] [phone] documented as of this encounter Visit Diagnoses Not on filedocumented in this encounter Additional Health Concerns Infection Onset Date Last Indicated Resolved Time COVID19 Pending 07/12/2024 07/12/2024 07/12/2024 1 :03 PM BUSINESS DEAN documented as of this encounter Care Teams Petroleum Engineer Relationship Specialty Start Date End Date Elsewhere, Pcp PCP - General Internal Medicine 01/30/24 documented as of this encounter
--- OUTSIDE RECORDS SUMMARY | 2024-07-21 11:44 | XMS_ITS | Encounter Summary ---
Author Organization [facility] Address [address] [place] [address] Care Team Providers Care Spine Nurse Name Role Phone Elsewhere, Pcp Primary Care Provider Unavailabl e Encounter Details Date Type Department Care Team (Latest Contact Info) Description 06/11/2024 12:08 PM TINNING EQUIPMENT TENDER - 06/11/2024 12:53 PM TINNING EQUIPMENT TENDER Hospital Encounter Department of Laboratory Medicine and Pathology, [place], [place] [address] [place] [phone] Janusz Govea M.B.B.S. [address] [place] [phone] Myelofibrosis Primary (HCC) Discharge Disposition: Home or [...] Sex Assigned at Female 07/24/2021 11:03 AM TINNING EQUIPMENT TENDER Legal Sex Female 9:12 PM TINNING EQUIPMENT TENDER Gender Identity Female 07/24/2021 11:03 AM TINNING EQUIPMENT TENDER Sexual Orientation Straight 07/24/2021 11 :03 AM TINNING EQUIPMENT TENDER documented as of this encounter Medications [...] times a day. 11/11/2023 4 RX WELCOME [id number]-L P ONLY Welcome packet 1 each 07/28/2023 2:07 PM TINNING EQUIPMENT TENDER 07/18/2023 4 torsemide (Demadex) 20 mg tablet Take 2 tablets (40 mg total) by mouth 2 (two) times a day. 120 tablet 11 03/05/2024 5 documented as of this encounter Plan of Treatment Upcoming Encounters Date Type Department Care Team (Late st Contact Info) Description 08/10/2024 8:30 AM TINNING EQUIPMENT TENDER Telemedicine Division of Hematology in [place], [place] [address] [place] [phone] Isidro Zamarripa M.B., B.Ch. [address] [place] [phone] 08/26/2024 8:30 AM TINNING EQUIPMENT TENDER Appointment Department of Laboratory Medicine and Pathology, [facility], in [place], [place] [address] [place] [phone] Matthew Mayes M.D. [address] [place] [phone] 08/26/2024 9:00 AM TINNING EQUIPMENT TENDER Appointment Department of Cardiac Rehabilitation in [place], [place] [address] [place] [phone] Matthew Mayes M.D. [address] [place] [phone] 08/26/2024 11:00 AM TINNING EQUIPMENT TENDER Clinical Support Department of Nutrition and Diabetes Education in [place], [place] [address] [place] [phone] Matthew Mayes M.D. [address] [place] [phone] Karmen Zambrano RDN, LD [address] [place] [phone] 08/27/2024 10:30 AM TINNING EQUIPMENT TENDER Office Visit Department of Cardiovascular Medicine in [place], [place] [address] [place] [phone] Matthew Mayes M.D. [address] [place] [phone] 09/14/2024 12:00 PM TINNING EQUIPMENT TENDER Appointment Department of Laboratory Medicine and Pathology, [facility] in [place], [place] [address] [place] [phone] Janusz Govea M.B.B.S. [address] [place] [phone] 09/14/2024 2:00 PM TINNING EQUIPMENT TENDER Office Visit Division of Hematology in [place], [place] [address] [place] [phone] Janusz Govea M.B.B.S. [address] [place] [phone] documented as of this encounter Procedures Procedure Name Priority Date/Time Associated Diagnosis Comments SPSMA RESULT Routine 06/11/2024 12:45 PM TINNING EQUIPMENT TENDER CBC WITH DIFFERENTIAL, B Routine 06/11/2024 12:45 PM TINNING EQUIPMENT TENDER Myelofibrosis Primary (HCC) LACTATE DEHYDROGENASE (LD), S Routine 06/11/2024 12:45 PM TINNING EQUIPMENT TENDER Myelofibrosis Primary (HCC) COMPREHENSIVE METABOLIC PANEL, S/P Routine 06/11/2024 12:45 PM TINNING EQUIPMENT TENDER Myelofibrosis Primary (HCC) documented in this encounter Results * (ABNORMAL) Morphology Eval (special smear) (06/11/2024 12:45 PM TINNING EQUIPMENT TENDER) Neutrophilic Segs and Bands 79(H) 50 - 75 % 06/11/2024 2:23 PM TINNING EQUIPMENT TENDER DHPM Lymphocytes 3(L) 18 - 42 % 06/11/2024 2:23 PM TINNING EQUIPMENT TENDER [facility] Monocytes 3 2 - 11 % 06/11/2024 2:23 PM TINNING EQUIPMENT TENDER DHPM Eosinophils 1 1 - 3 % 06/11/2024 2:23 PM TINNING EQUIPMENT TENDER DHPM Basophils 1 0 - 2 % 06/11/2024 2:23 PM TINNING EQUIPMENT TENDER [facility]PM Metamyelocytes 5(H) <1 % 06/11/2024 2:23 PM TINNING EQUIPMENT TENDER [facility] Myelocytes 7(H) <0.5 % 06/11/2024 2:23 PM TINNING EQUIPMENT TENDER [facility] Blasts 1(H) <1 % 06/11/2024 2:23 PM TINNING EQUIPMENT TENDER [facility]PM Megakaryocytes 3(H) <1 /100 WBC 06/11/2024 2:23 PM TINNING EQUIPMENT TENDER DHPM Nucleated RBC 68 /100 WBC 06/11/2024 2:23 PM TINNING EQUIPMENT TENDER [facility]PM Manual Absolute Neutrophil Count 30.49(H) 1.56 - 6.45 x10(9)/L 06/11/2024 2:23 PM TINNING EQUIPMENT TENDER [facility] Comment: ----ADDITIONAL INFORMATION---- The manual absolute neutrophil count is derived from a manual differential count and therefore is not exactly comparable to the automated absolute neutrophil count. Interpretation See Comment 2:23 PM TINNING EQUIPMENT TENDER [facility]PM Comment:See Hematopathology report Reviewed by: Tech 06/11/2024 2:23 PM TINNING EQUIPMENT TENDER [facility] Blood 06/11/2024 12:4 5 PM TINNING EQUIPMENT TENDER 06/11/2024 1:07 PM TINNING EQUIPMENT TENDER us Janusz Ardon LAB BLOOD ADD-ON Final R esult [facility] [address] [place] [address], [facility] [address] [place] [address] * (ABNORMAL) LD (Lactate Dehydrogenase) (06/11/2024 12:45 PM TINNING EQUIPMENT TENDER) Lactate Dehydrogenase (LD), S 763(H) 122 - 222 U/L 06/11/2024 2:03 PM TINNING EQUIPMENT TENDER DTL Blood (Blood, Venous) 06/11/2024 12:45 PM TINNING EQUIPMENT TENDER 06/11/2024 1:23 PM TINNING EQUIPMENT TENDER Janusz Ardon LAB BLOOD NON ADD-ON Fin al Result [facility] [address] [place] [address], [facility] [address] [place] [address] * (ABNORMAL) Comprehensive Metabolic Panel (06/11/2024 12:45 PM TINNING EQUIPMENT TENDER) Pathologist [facility] Potassium, S 5.0 3.6 - 5.2 mmol/L 06/11/2024 2:03 PM TINNING EQUIPMENT TENDER DTL Sodium, S 142 135 - 145 mmol/L 06/11/2024 2:03 PM TINNING EQUIPMENT TENDER DTL Chloride, S 101 98 - 107 mmol/L 06/11/2024 2:03 PM TINNING EQUIPMENT TENDER DTL Bicarbonate, S 31(H) 22 - 29 mmol/L 06/11/2024 2:03 PM TINNING EQUIPMENT TENDER DTL Anion Gap 10 7 - 15 06/11/2024 2:03 PM TINNING EQUIPMENT TENDER DTL BUN (Blood Urea Nitrogen), S 38(H) 6 - 21 mg/dL 06/11/2024 2:03 PM TINNING EQUIPMENT TENDER DTL Creatinine 1.36(H) 0.59 - 1.04 mg/dL 06/11/2024 2:03 PM TINNING EQUIPMENT TENDER DTL Estimated GFR (eGFR) 46(L) >=60 mL/min/BS A 06/11/2024 2:03 PM TINNING EQUIPMENT TENDER DTL Comment: Estimated GFR calculated using the 2020 CKD_EPI creatinine equation. Calcium, Total, S 8.7 8.6 - 10.0 mg/dL 06/11/2024 2:03 PM TINNING EQUIPMENT TENDER DTL Glucose, S 127 70 - 140 mg/dL 06/11/2024 2:03 PM TINNING EQUIPMENT TENDER DTL Protein, Total, S 6.0(L) 6.3 - 7.9 g/dL 06/11/2024 2:03 PM TINNING EQUIPMENT TENDER DTL Albumin, S 4.1 3.5 - 5.0 g/dL 06/11/2024 2:03 PM TINNING EQUIPMENT TENDER DTL Aspartate Aminotransferase (AST), S 45(H) 8 - 43 U/L 06/11/2024 2:03 PM TINNING EQUIPMENT TENDER DTL Alkaline Phosphatase, S 343(H) 35 - 104 U/L 06/11/2024 2:03 PM TINNING EQUIPMENT TENDER DTL Alanine Aminotransferase (ALT), S 50(H) 7 - 45 U/L 06/11/2024 2:03 PM TINNING EQUIPMENT TENDER DTL Bilirubin, Total, S 0.9 0.0 - 1.2 mg/dL 06/11/2024 2:03 PM TINNING EQUIPMENT TENDER DTL Blood (Blood, Venous) 06/11/2024 12:45 PM TINNING EQUIPMENT TENDER 06/11/2024 1:23 PM TINNING EQUIPMENT TENDER Janusz Ardon LAB BLOOD ADD-ON Final R esult [facility] [place] [address] [place] [address], [facility] [address] [place] [address] * (ABNORMAL) CBC with Differential, Blood (06/11/2024 12:45 PM TINNING EQUIPMENT TENDER) Hemoglobin 7.6(L) 11.6 - 15.0 g/dL 06/11/2024 1:12 PM TINNING EQUIPMENT TENDER DTL Hematocrit 25.1(L) 35.5 - 44.9 % 06/11/2024 1:12 PM TINNING EQUIPMENT TENDER DTL Erythrocytes 2.65(L) 3.92 - 5.13 x10(12)/L 06/11/2024 1:12 PM TINNING EQUIPMENT TENDER DTL MCV 94.7 78.2 - 97.9 fL 06/11/2024 1:12 PM TINNING EQUIPMENT TENDER DTL RBC Distrib Width 24.6(H) 12.2 - 16.1 % 06/11/2024 2:23 PM TINNING EQUIPMENT TENDER DTL Platelet Count 584(H) 157 - 371 x10(9)/L 06/11/2024 1:12 PM TINNING EQUIPMENT TENDER DTL Leukocytes 38.6(H) 3.4 - 9.6 x10(9)/L 06/11/2024 2:23 PM TINNING EQUIPMENT TENDER DTL Comment:Corrected for normob lasts. Neutrophils See Comment 1.56 - 6.45 x10(9)/L 06/11/2024 2:23 PM TINNING EQUIPMENT TENDER PM Comment:Auto-diff results no t valid. See manual differential. Blood (Blood, Venous) 06/11/2024 12:45 PM TINNING EQUIPMENT TENDER 06/11/2024 1:07 PM TINNING EQUIPMENT TENDER Janusz Ardon LAB BLOOD ADD-ON Final R esult [facility] [address] [place] [address], [facility] DTL [facility] [address] [place] [address] [facility] [address] [place] [address] documented in this encounter Visit Diagnoses Diagnosis Myelofibrosis Primary (HCC) documented in this encounter Care Teams Spine Nurse Relationship Specialty Start Date End Date Elsewhere, Pcp PCP - General Internal Medicine 01/30/24 documented as of this encounter
--- OUTSIDE RECORDS SUMMARY | 2024-07-21 11:44 | XMS_ITS | Encounter Summary ---
Author Organization [facility] Address [address] [place] [address] Care Team Providers Care Client Director Name Role Phone Elsewhere, Pcp Primary Care Provider Unavailabl e Reason for Referral * Transplant (Routine) - Closed Specialty Diagnoses / Procedures Referred By Contac t Referred To Contact Transplant Diagnoses Anemia Isidro Zamarripa M.B., B.Ch. [address] [place] [phone] Phone: tel: fax: [facility] Referral ID Status Reason Start Date Expiration Date Visits Re quested Visits Authorized [id number] Closed 06/29/2024 07/06/2024 1 1 ECT ADMINISTRATOR * Outpatient (Routine) - Authorized Specialty Diagnoses / Procedures Referred By Contac t Referred To Contact Diagnoses Myelofibrosis (HCC) Procedures G[facility] Fibroscan Isidro Zamarripa M.B., B.Ch. [address] [place] [phone] Phone: tel: fax: [facility] Referral ID Status Reason Start Date Expiration Date V isits Requested Visits Authorized [id number] Authorized 06/29/2024 06/29/2025 1 1 ECT ADMINISTRATOR * Outpatient (Routine) - Authorized Specialty Diagnoses / Procedures Referred By Contac t Referred To Contact Diagnoses Myelofibrosis (HCC) Procedures NM Bone Marrow Scan Whole Body Isidro Zamarripa M.B., B.Ch. [address] [place] [phone] Phone: tel: fax: [facility] Referral ID Status Reason Start Date Expiration Date V isits Requested Visits Authorized [id number] Authorized 06/29/2024 06/29/2025 8 8 ECT ADMINISTRATOR * Outpatient (Routine) - Authorized Specialty Diagnoses / Procedures Referred By Serena matson Referred To Contact Hematology Oncology Isidro Zamarripa M.B., B.Ch. [address] [place] [phone] Phone: tel: fax: [facility] Referral ID Status Reason Start Date Expiration Date V isits Requested Visits Authorized [id number] Authorized 06/29/2024 12/29/2025 1 1 ECT ADMINISTRATOR Reason for Visit * Outpatient (Routine) - Closed Specialty Diagnoses / Procedures Referred By Serena matson Referred To Contact Hematology Oncology Janusz Govea M.B.B.S. [address] [place] [phone] Phone: tel: fax: Isidro Zamarripa M.B., B.Ch. [address] [place] [phone] Phone: tel: fax: Referral ID Status Reason Start Date Expiration Date Visits Re quested Visits Authorized [id number] Closed 06/03/2024 12/03/2025 1 1 Encounter Details Date Type Department Care Team (Latest Contact Info) Description 06/29/2024 11:30 AM PROJECT ADMINISTRATOR Office Visit Division of Hematology in [place], [place] [address] [place] [phone] Isidro Zamarripa M.B., B.Ch. [address] [place] [phone] Myelofibrosis (HCC) (Primary Dx); Anemia; Hemosiderosis Social History Tobacco Use Types Packs/Day Years [...] Assigned at Female 07/24/2021 11:03 AM PROJECT ADMINISTRATOR Legal Sex Female 9:12 PM PROJECT ADMINISTRATOR Gender Identity Female 07/24/2021 11:03 AM PROJECT ADMINISTRATOR Sexual Orientation Straight 07/24/2021 11 :03 AM PROJECT ADMINISTRATOR documented as of this encounter Last Filed Vital Signs Vital Sign Reading Time Taken Comments Blood Pressure 101/62 06/29/2024 11:22 AM PROJECT ADMINISTRATOR Pulse 103 06/29/2024 11:22 AM PROJECT ADMINISTRATOR Temperature 36.1 C (96.9 F) 06/29/2024 11:22 AM PROJECT ADMINISTRATOR Respiratory Rate - - Oxygen Saturation - - Inhaled Oxygen Concentration - - Weight - - Height - - Body Mass Index - - documented in this encounter Progress Notes * Isidro Zamarripa M.B., B.Ch. - 06/29/2024 11:30 AM CST SUBJECTIVE CHIEF COMPLAINT/REASON FOR VISIT Primary myelofibrosis. HISTORY OF PRESENT ILLNESS Mrs. Dobbs is a very pleasant 54-year-old female with primary myelofibrosis, status post multiple prior therapies including ruxolitinib, fedratinib, pacritinib, and momelotinib, and 2 clinical trials, Alisertib and 9-ING. 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 She continues on current treatment with Hydrea 500 twice daily to control leukocytosis and thrombocytosis post splenectomy. She has transfusion-dependent anemia and has been requiring transfusions every 2 weeks or so with an extensive transfusion history. Most recently she has had weight gain related to fluid retention. She is following closely with Dr. Mayes for pulmonary hypertension and tricuspid regurgitation and high health put heart failure thought to be related to severe anemia. [facility]. She continues to have GI symptoms of bloating and belching and fatigue. She is referred for further discussion of potential options with regard to allogeneic hematopoietic stem cell transplant. We reviewed her current situation. Her right heart catheterization demonstrated severely elevated RA mean pressure. Elevated RA v-wavepressure. V-wave compatible with TR. Baseline RA 18 PA 73/31/47 PAWP 18 CO/CI 9.9/4.3 PVR 2.9 GARIBAY art sat 86% PA sat 46%. Nitric oxide RA 18 PA 63/27/44 PAWP 19 CO/CI 11.4/4.9 PVR 2.2 GARIBAY art sat 80% PA sat 45%. Findings indicative of severely elevated right and left heart filling pressures with severely elevated pulmonary artery pressure, mildly elevated PVR, and high cardiac output state in context of severe anemia. Systemic hypoxemia. MEDICATIONS Current Outpatient Medications: acetaminophen (TYLENOL) 500 mg tablet, Take 2 tablets (1,000 mg total) by mouth every 6 (six) hoursas needed for pain (Do not exceed 4000mg/day.)., Disp: , Rfl: allopurinoL (Zyloprim) 300 mg tablet, TAKE 1 TABLET BY MOUTH DAILY, Disp: 90 tablet, Rfl: 3 buPROPion XL (WELLBUTRIN XL) 150 mg 24 hr tablet, Take 150 mg by mouth daily., Disp: , Rfl: danazoL (Danocrine) 200 mg capsule, Take 1 capsule (200 mg total) by mouth 2 (two) times a day., Disp: 60 capsule, Rfl: 3 diphenhydrAMINE-acetaminophen (TYLENOL PM) 25-500 mg per tablet, [...] daily., Disp: 90 capsule, Rfl: 3 oxyCODONE (Oxy IR) 5 mg immediate release capsule, Take 5 mg by mouth as needed., Disp: , Rfl: oxyCODONE (ROXICODONE) 5 mg [...] a day., Disp: , Rfl: RX WELCOME [id number] ONLY, Welcome packet, Disp: 1 each, Rfl: [...] new for her., Disp: , Rfl: OBJECTIVE Blood Pressure: 101/62 BP Location: Left arm Patient Position: Sitting Pulse Rate: 103 Temperature: 36.1 ??C Temp Source: Tympanic PHYSICAL EXAMINATION General: She is generally alert and oriented, discouraged by the her symptom burden. Skin: No features of connective tissue disease. Eyes: Non-icteric Heart: S1, S2 with prominent P2 II/ systolic murmur LLSB Lungs: Clear to auscultation bilaterally. Abdomen: Distended. 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 #5 Obstructive sleep apnea #6 Hyperuricemia #7 High-output cardiac failure #8 Consideration of allogeneic transplant I reviewed the situation with the patient and her . She has significant comorbidities that would increase her risk for allogeneic hematopoietic stem cell transplant. She has evidence for advanced pulmonary hypertension with severe tricuspid regurgitation and probable high output cardiac failure as a result of anemia. She also has obstructive sleep apnea with significant lower extremity edema. Unfortunately she is not responding to multiple interventions including ruxolitinib, fedratinib,pacritinib, and momelotinib, and 2 clinical trials, Alisertib and 9-ING. 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 Her symptom burden is recently very limiting for her from a quality of life lillian dpoint. I think her risk for allogeneic transplant as significantly elevated in view of the degree of her comorbidities particularly from a cardiopulmonary standpoint. However she is very keen to try and explore if this is at all possible recognizing a high risk of morbidity and mortality. With this in mind we decided to proceed as follows. 1. Will obtain a repeat sulfur technetium scan to make sure that there is no pulmonary uptake that might be amenable to pulmonary radiation therapy to alleviate her symptoms somewhat in optimize her situation. 2. We will check a FibroScan to get a sensitive degree of liver infiltration 3. We will check iron studies 4. Repeat anti HLA antibodies and we will update the unrelated donor search 5. Pulmonary function tests 6. I discussed that the risk is likely to be very significantly increased and that a decision wouldhave to be made by the bone marrow transplant selection committee prior to being able to proceed. We will capture the information outlined above to try and better characterize her risk and proceed todiscussion at the selection conference to see if this may be a possibility to be considered. In themeantime a note Dr. Govea is considering starting danazol which seems very reasonable in the context. She understands that the likelihood to proceed to allogeneic transplant is quite limited but that we will explore this option further for now. She is very comfortable with the current approach. ECT ADMINISTRATOR documented in this encounter Plan of Treatment Upcoming Encounters Date Type Department Care Team (Late st Contact Info) Description 08/10/2024 8:30 AM PROJECT ADMINISTRATOR Telemedicine Division of Hematology in [place], [place] [address] [place] [phone] Isidro Zamarripa M.B., B.Ch. [address] [place] [phone] 08/26/2024 8:30 AM PROJECT ADMINISTRATOR Appointment Department of Laboratory Medicine and Pathology, [facility] in [place], [place] [address] [place] [phone] Matthew Mayes M.D. [address] [place] [phone] 08/26/2024 9:00 AM PROJECT ADMINISTRATOR Appointment Department of Cardiac Rehabilitation in [place], [place] [address] [place] [phone] Matthew Mayes M.D. [address] [place] [phone] 08/26/2024 11:00 AM PROJECT ADMINISTRATOR Clinical Support Department of Nutrition and Diabetes Education in [place], [place] [address] [place] [phone] Matthew Mayes M.D. [address] [place] [phone] Karmen Zambrano, RDN, LD [address] [place] [phone] 08/27/2024 10:30 AM PROJECT ADMINISTRATOR Office Visit Department of Cardiovascular Medicine in [place], [place] [address] [place] [phone] Matthew Mayes M.D. [address] [place] [phone] 09/14/2024 12:00 PM PROJECT ADMINISTRATOR Appointment Department of Laboratory Medicine and Pathology, [facility], in [place], [place] [address] [place] [phone] Janusz Govea M.B.B.S. [address] [place] [phone] 09/14/2024 2:00 PM PROJECT ADMINISTRATOR Office Visit Division of Hematology in [place], [place] [address] [place] [phone] Janusz Govea M.B.B.S. [address] [place] [phone] Scheduled Orders Name Type Priority Associated Diagnoses Order Schedule NM Bone Marrow Scan Whole Body Imaging RAD - Routine (most inpatients and all outpatients) Myelofibrosis (HCC) Expected: 06/29/2024, Expires: 09/27/2025 [facility] Fibroscan Procedures Routine Myelofibrosis (HCC) Expected: 06/29/2024, Expires: 09/27/2025 Pulmonary Function Tests PFT Routine Myelofibrosis (HCC) Expected: 06/29/2024, Expires: 09/27/2025 Scheduled Referrals Name Type Priority Associated Diagnoses Order Schedule Hematology office visit (clinic) [facility]; BMT; General Outpatient Referral Routine Expected: 07/30/2024 (Approximate), Expires: 09/27/2025 BMT / CAR-T request for prior authorization [facility]; BMT Outpatient Referral STAT Anemia Ordered: 06/29/2024 documented as of this encounter Results * (ABNORMAL) Ferritin (06/29/2024 12:51 PM PROJECT ADMINISTRATOR) Ferritin, S 7389(H) 11 - 328 mcg/L 06/29/2024 2:21 PM PROJECT ADMINISTRATOR DTL Blood (Blood, Venous) 06/29/2024 12:51 PM PROJECT ADMINISTRATOR 06/29/2024 1:34 PM PROJECT ADMINISTRATOR us Isidro Arrington, B.Ch. LAB BLOOD ADD-ON Fin al Result Performing Organization Address [facility] Co de Phone Number [facility] [address] [place] [address] * (ABNORMAL) Iron and Total Iron-Binding Capacity (06/29/2024 12:51 PM PROJECT ADMINISTRATOR) [facility] Iron 192(H) 35 - 145 mcg/dL 06/29/2024 2:01 PM PROJECT ADMINISTRATOR DTL Total Iron Binding Capacity 178(L) 250 - 400 mcg/dL 06/29/2024 2:01 PM PROJECT ADMINISTRATOR DTL Percent Saturation >90(H) 14 - 50 % 06/29/2024 2:01 PM PROJECT ADMINISTRATOR DTL Blood (Blood, Venous) 06/29/2024 12:51 PM PROJECT ADMINISTRATOR 06/29/2024 1:34 PM PROJECT ADMINISTRATOR us Isidro Arrington, B.Ch. LAB BLOOD ADD-ON Fin al Result Performing Organization Address [facility]/ZIP Co de Phone Number [facility] 200 [place], [place] [phone] [place] [address] [address] * HLA Class II SAB Antibody Screen (06/29/2024 12:51 PM PROJECT ADMINISTRATOR) Class II SAB Overall Result Positive Not Applicable 07/01/2024 9:07 AM PROJECT ADMINISTRATOR DBB8 Class II SAB >=5000 MFI NONE 07/01/2024 9:07 AM PROJECT ADMINISTRATOR DBB8 Class II SAB 1544-4938 MFI see below 07/01/2024 9:07 AM PROJECT ADMINISTRATOR DBB8 Comment:DP:14:01 Class II SAB 500-1999 MFI see below 07/01/2024 9:07 AM PROJECT ADMINISTRATOR DBB8 Comment: DR:7 4 DQ:8 6 DP:1 10 SAB DRB1 Specificity see below 07/01/2024 9:07 AM PROJECT ADMINISTRATOR DBB8 Comment: 7(07:01)[1414], 4(04:04)[518] Format: Serologic Eq.(DRB1 Mol. Allele)[Normalized MFI] NOTE: Data is displayed in descending order by Mean Fluorescence Intensity (MFI). Serologic equivalents can be displayed multiple times for different molecular alleles. SAB NWV924 Specificity NONE 07/01/2024 9:07 AM PROJECT ADMINISTRATOR DBB8 SAB DQB1 Specificity see below 07/01/2024 9:07 AM PROJECT ADMINISTRATOR DBB8 Comment: 8(A*03:01;B*03:02)[1092], 8(A*02:01;B*03:02)[817], 6(A*01:03;B*06:01)[588] Format: Serologic Eq.(DQA1;DQB1 Mol. Allele)[Normalized MFI] NOTE: Data is displayed in descending order by Mean Fluorescence Intensity (MFI). Serologic equivalents can be displayed multiple times for different molecular alleles. SAB DPB1 Specificity see below 07/01/2024 9:07 AM PROJECT ADMINISTRATOR DBB8 Comment: 14(A*02:01;B*14:01)[3114], 1(A*02:01;B*01:01)[939], 10(A*02:02;B*10:01)[715] Format: Serologic Eq.(DPA1;DPB1 Mol. Allele)[Normalized MFI] NOTE: Data is displayed in descending order by Mean Fluorescence Intensity (MFI). Serologic equivalents can be displayed multiple times for different molecular alleles. ----ADDITIONAL INFORMATION---- Method: Luminex Flow Cytometry CLIA: [id number] CLIA Owner Oral Surgeon: NIXON FLORENTINO,Ph.D. Blood (Blood, Venous) 06/29/2024 12:51 PM PROJECT ADMINISTRATOR 06/29/2024 2:33 PM PROJECT ADMINISTRATOR Isidro Arrington B.Ch. LAB HLA ORDERABLES F inal Result Performing Organization Address [facility] Co de Phone Number [facility] [address] [place] [address], [facility] DBB8 [facility] 200 [place] [address] * HLA Class I SAB Antibody Screen (06/29/2024 12:51 PM PROJECT ADMINISTRATOR) [facility] Class I SAB Overall Result Negative Not Applicable 07/01/2024 9:03 AM PROJECT ADMINISTRATOR DBB8 Class I SAB >=5000 MFI NONE 07/01/2024 9:03 AM PROJECT ADMINISTRATOR DBB8 Class I SAB 9302-5271 MFI NONE 07/01/2024 9:03 AM PROJECT ADMINISTRATOR DBB8 Class I SAB 500-1999 MFI NONE 07/01/2024 9:03 AM PROJECT ADMINISTRATOR DBB8 SAB A Specificity NONE 07/01/2024 9:03 AM PROJECT ADMINISTRATOR DBB8 SAB B Specificity NONE 07/01/2024 9:03 AM PROJECT ADMINISTRATOR DBB8 SAB C Specificity NONE 07/01/2024 9:03 AM PROJECT ADMINISTRATOR DBB8 Comment: ----ADDITIONAL INFORMATION---- Method: Luminex Flow Cytometry CLIA: [id number] CLIA Owner Oral Surgeon: NIXON FLORENTINO,Ph.D. Blood (Blood, Venous) 06/29/2024 12:51 PM PROJECT ADMINISTRATOR 06/29/2024 2:33 PM PROJECT ADMINISTRATOR us Isidro Arrington, B.Ch. LAB HLA ORDERABLES F inal Result Performing Organization Address [facility] Co de Phone Number [facility] [address] [place] [address], [facility] DBB8 [facility] [address] [place] [address] * HLA Class II Typing by High Resolution, Recipient (06/29/2024 12:51 PM PROJECT ADMINISTRATOR) DRB1 - [address] Not Applicable 07/08/2024 2:05 PM PROJECT ADMINISTRATOR DBB8 DRB1 - [address] Not Applicable 07/08/2024 2:05 PM PROJECT ADMINISTRATOR DBB8 DRB1 - 1 Allele DRB1*09:01 Not Applicable 07/08/2024 2:05 PM PROJECT ADMINISTRATOR DBB8 DRB1 - 2 Allele DRB1*12:01 Not Applicable 07/08/2024 2:05 PM PROJECT ADMINISTRATOR DBB8 [id number] - [address] Not Applicable 07/08/2024 2:05 PM PROJECT ADMINISTRATOR DBB8 [id number] - [address] Not Applicable 07/08/2024 2:05 PM PROJECT ADMINISTRATOR DBB8 OFP317 - 1 Allele DRB3*02:02 Not Applicable 07/08/2024 2:05 PM PROJECT ADMINISTRATOR DBB8 CMC378 - 2 Allele DRB4*01:03 Not Applicable 07/08/2024 2:05 PM PROJECT ADMINISTRATOR DBB8 DQB1 - 1 Equivalent DQ7 Not Applicable 07/08/2024 2:05 PM PROJECT ADMINISTRATOR DBB8 DQB1 - 2 Equivalent DQ9 Not Applicable 07/08/2024 2:05 PM PROJECT ADMINISTRATOR DBB8 DQB1 - 1 Allele DQB1*03:01 Not Applicable 07/08/2024 2:05 PM PROJECT ADMINISTRATOR DBB8 DQB1 - 2 Allele DQB1*03:03 Not Applicable 07/08/2024 2:05 PM PROJECT ADMINISTRATOR DBB8 DQA1 - 1 Allele DQA1*03:02 Not Applicable 07/08/2024 2:05 PM PROJECT ADMINISTRATOR DBB8 DQA1 - 2 Allele DQA1*05:05 Not Applicable 07/08/2024 2:05 PM PROJECT ADMINISTRATOR DBB8 DPB1 - 1 Allele DPB1*04:01 Not Applicable 07/08/2024 2:05 PM PROJECT ADMINISTRATOR DBB8 DPB1 - 2 Allele DPB1*04:01 Not Applicable 07/08/2024 2:05 PM PROJECT ADMINISTRATOR DBB8 DPA1 - 1 Allele DPA1*01:03 Not Applicable 07/08/2024 2:05 PM PROJECT ADMINISTRATOR DBB8 DPA1 - 2 Allele DPA1*01:03 Not Applicable 07/08/2024 2:05 PM PROJECT ADMINISTRATOR DBB8 DRB1 Unresolved Alleles DRB1*09:57 07/08/2024 2:05 PM PROJECT ADMINISTRATOR DBB8 Test Method PCR - Next Generation Sequencing 07/08/2024 2:05 PM PROJECT ADMINISTRATOR DBB8 Comment: ----ADDITIONAL INFORMATION---- Common, intermediate and well-documented (CIWD) HLA alleles are resolved or listed if not resolved. Listing of ambiguous rare alleles not resolved can be found in the corresponding unresolved field. (Albert ROSENBERG, Cesar J, Nolan K, et al. 2020; 1-16 https://doi.org/10.1111/GUEVARA.37103). For convenience, when not defined in the WHO Nomenclature a laboratory defined serologic equivalent has been provided. This test was developed and its performance characteristics determined by [facility] in a manner consistent with CLIA requirements. This test has not been cleared or approved by the U.S. Food and Drug Administration. CLIA: [id number] CLIA Owner Oral Surgeon: NIXON FLORENTINO,Ph.D. Blood (Blood, Venous) 06/29/2024 12:51 PM PROJECT ADMINISTRATOR 06/29/2024 1:45 PM PROJECT ADMINISTRATOR Isidro Arrington, B.Ch. LAB HLA ORDERABLES F inal Result [facility] [address] [place] [address], [facility] DBB8 [facility] [address] [place] [address] * HLA Class I Typing by High Resolution, Recipient (06/29/2024 12:51 PM PROJECT ADMINISTRATOR) A - 1 Equivalent A2 Not Applicable 07/08/2024 2:04 PM PROJECT ADMINISTRATOR DBB8 A - 2 Equivalent A24 Not Applicable 07/08/2024 2:04 PM PROJECT ADMINISTRATOR DBB8 A - 1 Allele A*02:01 Not Applicable 07/08/2024 2:04 PM PROJECT ADMINISTRATOR DBB8 A - 2 Allele A*24:02 Not Applicable 07/08/2024 2:04 PM PROJECT ADMINISTRATOR DBB8 B - 1 Equivalent B44 Not Applicable 07/08/2024 2:04 PM PROJECT ADMINISTRATOR DBB8 B - 2 Equivalent B51 Not Applicable 07/08/2024 2:04 PM PROJECT ADMINISTRATOR DBB8 B - 1 Allele B*44:02 Not Applicable 07/08/2024 2:04 PM PROJECT ADMINISTRATOR DBB8 B - 2 Allele B*51:01 Not Applicable 07/08/2024 2:04 PM PROJECT ADMINISTRATOR DBB8 Bw - 1 Equivalent Bw4 Not Applicable 07/08/2024 2:04 PM PROJECT ADMINISTRATOR DBB8 Bw - 2 Equivalent Bw4 Not Applicable 07/08/2024 2:04 PM PROJECT ADMINISTRATOR DBB8 C - 1 Equivalent Cw5 Not Applicable 07/08/2024 2:04 PM PROJECT ADMINISTRATOR DBB8 C - 2 Equivalent Cw14 Not Applicable 07/08/2024 2:04 PM PROJECT ADMINISTRATOR DBB8 C - 1 Allele C*05:01 Not Applicable 07/08/2024 2:04 PM PROJECT ADMINISTRATOR DBB8 C - 2 Allele C*14:02 Not Applicable 07/08/2024 2:04 PM PROJECT ADMINISTRATOR DBB8 Test Method PCR - Next Generation Sequencing 07/08/2024 2:04 PM PROJECT ADMINISTRATOR DBB8 Comment: ----ADDITIONAL INFORMATION---- Common, intermediate and well-documented (CIWD) HLA alleles are resolved or listed if not resolved. Listing of ambiguous rare alleles not resolved can be found in the corresponding unresolved field. (Albert ROSENBERG, Cesar J, Nolan K, et al. 2020; 1-16 https://doi.org/10.1111/GUEVARA.38970). For convenience, when not defined in the WHO Nomenclature a laboratory defined serologic equivalent has been provided. This test was developed and its performance characteristics determined by [facility] in a manner consistent with CLIA requirements. This test has not been cleared or approved by the U.S. Food and Drug Administration. CLIA: [id number] CLIA Owner Oral Surgeon: NIXON FLORENTINO,Ph.D. Blood (Blood, Venous) 06/29/2024 12:51 PM PROJECT ADMINISTRATOR 06/29/2024 1:46 PM PROJECT ADMINISTRATOR Narrative [facility] - 07/08/2024 2:04 PM PROJECT ADMINISTRATOR Specimen Information: Specimen ID: [id number] Specimen Type: Blood Specimen Collection Start Date: 06/29/2024 12:51 PM Specimen Received Date: 06/29/2024 1:46 PM Specimen ID: [id number] Specimen Type: Blood Specimen Collection Start Date: 06/29/2024 12:51 PM Specimen Received Date: 06/29/2024 1:46 PM Specimen ID: [id number] Specimen Type: Blood Specimen Collection Start Date: 06/29/2024 12:51 PM Specimen Received Date: 06/29/2024 1:45 PM Isidro Arrington, B.Ch. LAB HLA ORDERABLES F inal Result Performing Organization Address City/[facility]/ZIP Co de Phone Number [facility] [address] DBB8 [facility] 200 [place] [address] * Transplant ABO Confirmation (06/29/2024 12:51 PM PROJECT ADMINISTRATOR) [facility] Transplant ABO Confirmation A Pos 06/29/2024 1:57 PM PROJECT ADMINISTRATOR ET Blood (Blood, Venous) 06/29/2024 12:51 PM PROJECT ADMINISTRATOR 06/29/2024 1:21 PM PROJECT ADMINISTRATOR Isidro Arrington, B.Ch. LAB BLOOD BANK TEST ORDERABLES Final Result Performing Organization Address [facility] Co de Phone Number [facility] 200 [place] [address], [facility] ETRM [facility] 200 [place] [address] * Cytomegalovirus Ab, IgM and IgG (06/29/2024 12:51 PM PROJECT ADMINISTRATOR) [facility] Cytomegalovirus Ab, IgM, S Negative Negative 06/30/2024 8:52 AM PROJECT ADMINISTRATOR [facility] Cytomegalovirus Ab, IgG, S Negative Negative 06/30/2024 8:52 AM PROJECT ADMINISTRATOR [facility] Blood (Blood, Venous) 06/29/2024 12:51 PM PROJECT ADMINISTRATOR 06/29/2024 4:15 PM PROJECT ADMINISTRATOR Isidro Arrington, B.Ch. LAB MICROBIOLOGY - B LOOD ORDERABLES Final Result Performing Organization Address [facility]/ZIP Co de Phone Number [facility] [address] [place] [address] [facility] [address] [place] [address] documented in this encounter Visit Diagnoses Diagnosis Myelofibrosis (HCC)- Primary Anemia Hemosiderosis Myelofibrosis (HCC) Anemia Hemosiderosis documented in this encounter Care Teams Client Director Relationship Specialty Start Date End Date Elsewhere, Pcp PCP - General Internal Medicine 01/30/24 documented as of this encounter
--- OUTSIDE RECORDS SUMMARY | 2024-07-21 11:44 | XMS_ITS | Encounter Summary ---
Author Organization [facility] Address [address] [place] [address] Care Team Providers Care Integrated Logistics Operations Manager Name Role Phone Elsewhere, Pcp Primary Care Provider Unavailabl e Encounter Details Date Type Department Care Team (Late Contact Info) Description 06/16/2024 Orders Only Division of Hematology in [place], [place] [address] [place] [phone] External, Ordering ProviderDewayne Social History Tobacco Use Types Packs/Day Years Used Date Smoking Tobacco: Former Cigarettes 1 1 2012 Passive Smoke Exposure: Never Smokeless [...] Sex Assigned at Female 07/24/2021 11:03 AM SOFTWARE ENGINEERING ANALYST Legal Sex Female 9:12 PM SOFTWARE ENGINEERING ANALYST Gender Identity Female 07/24/2021 11:03 AM SOFTWARE ENGINEERING ANALYST Sexual Orientation Straight 07/24/2021 11 :03 AM SOFTWARE ENGINEERING ANALYST documented as of this encounter Plan of Treatment Upcoming Encounters Date Type Department Care Team (Late Contact Info) Description 08/10/2024 8:30 AM SOFTWARE ENGINEERING ANALYST Telemedicine Division of Hematology in [place], [place] [address] [place] [phone] Isidro Zamarripa M.B., B.Ch. [address] [place] [phone] 08/26/2024 8:30 AM SOFTWARE ENGINEERING ANALYST Appointment Department of Laboratory Medicine and Pathology, [facility], in [place], [place] [address] [place] [phone] Matthew Mayes M.D. [address] [place] [phone] 08/26/2024 9:00 AM SOFTWARE ENGINEERING ANALYST Appointment Department of Cardiac Rehabilitation in [place], [place] [address] [place] [phone] Matthew Mayes M.D. [address] [place] [phone] 08/26/2024 11:00 AM SOFTWARE ENGINEERING ANALYST Clinical Support Department of Nutrition and Diabetes Education in [place], [place] [address] [place] [address] Matthew Mayes M.D. [address] [place] [phone] Karmen Zambrano, JOSE, LD [address] [place] [phone] 08/27/2024 10:30 AM SOFTWARE ENGINEERING ANALYST Office Visit Department of Cardiovascular Medicine in [place], [place] [address] [place] [phone] Matthew Mayes M.D. [address] [place] [phone] 09/14/2024 12:00 PM SOFTWARE ENGINEERING ANALYST Appointment Department of Laboratory Medicine and Pathology, [facility], in [place], [place] [address] [place] [phone] Janusz Govea M.B.B.S. [address] [place] [phone] 09/14/2024 2:00 PM SOFTWARE ENGINEERING ANALYST Office Visit Division of Hematology in [place], [place] [address] [place] [phone] Janusz Govea M.B.B.S. [address] [place] [phone] documented as of this encounter Procedures Procedure Name Priority Date/Time Associated Diagnosis Comments CBC WITH DIFFERENTIAL, B Routine 06/16/2024 11:01 AM SOFTWARE ENGINEERING ANALYST documented in this encounter Results * (ABNORMAL) CBC with Differential, Blood (06/16/2024 11:01 AM SOFTWARE ENGINEERING ANALYST) EXT Leukocytes 69.52(H) 4.50 - 11.00 K/uL SCANNED REPORT EXT Hemoglobin 6.9(L) 12.0 - 16.0 gm/dL SCANNED REPORT EXT Hematocrit 22.9(L) 33.0 - 51.0 ML SCANNED REPORT EXT MCV 94 80 - 100 fL SCANNED REPORT EXT Platelet Count 567(H) 140 - 440 K/uL SCANNED REPORT EXT RDW 24.8(H) 11.5 - 15.5 % SCANNED REPORT EXT Neutrophils 17.10(H) 1.7 - 7.0 K/uL SCANNED REPORT EXT Lymphocytes 4.20(H) 0.90 - 2.90 K/uL SCANNED REPORT EXT Monocytes 4.00(H) 0.00 - 0.90 ML SCANNED REPORT EXT Eosinophils 0.10 0.00 - 0.50 K/uL SCANNED REPORT EXT RBC 2.44(L) 4.00 - 5.20 MIL/UL SCANNED REPORT EXT Basophils 2.00(H) 0.00 - 0.30 K/uL SCANNED REPORT 06/16/2024 11:0 1 AM SOFTWARE ENGINEERING ANALYST Narrative SCANNED REPORT - 06/16/2024 11:45 AM SOFTWARE ENGINEERING ANALYST External results verified in Extract by Jocelyne Lang on 06/16/2024 at 02:33 PM. Xuan us Ordering Provider External M.D. LAB BLOOD ADD-ON Final Result SCANNED REPORT documented in this encounter Visit Diagnoses Not on filedocumented in this encounter Care Teams Integrated Logistics Operations Manager Relationship Specialty Start Date End Date Elsewhere, Pcp PCP - General Internal Medicine 01/30/24 documented as of this encounter
--- OUTSIDE RECORDS SUMMARY | 2024-07-21 11:44 | XMS_ITS | Encounter Summary ---
Author Organization [facility] Address [address] [place] [address] Care Team Providers Care Stumper Feller Name Role Phone Elsewhere, Pcp Primary Care Provider Unavailabl e Reason for Visit * Reason Onset Date Comments Triage 06/07/2024 Encounter Details Date Type Department Care Team (Latest Contact Info) Description 06/07/2024 Clinical Communication Department of Cardiovascular Medicine in [place], [place] [address] [place] [phone] Palak Gandhi R.N. Triage Social History Tobacco Use Types Packs/Day [...] Sex Assigned at Female 07/24/2021 11:03 AM REGIONAL EXTENSION SERVICE SPECIALIST Legal Sex Female 9:12 PM REGIONAL EXTENSION SERVICE SPECIALIST Gender Identity Female 07/24/2021 11:03 AM REGIONAL EXTENSION SERVICE SPECIALIST Sexual Orientation Straight 07/24/2021 11 :03 AM REGIONAL EXTENSION SERVICE SPECIALIST documented as of this encounter Miscellaneous Notes * Telephone Encounter - Palak Gandhi R.N. - 06/07/2024 4:04 PM CST Received critical lab fax from [facility], indicating that patient's weigh increased 6 kg from baseline. ASSESSMENT Communicated with pt's Gian who was not with the pt at the moment. Gian reported pt's weight today was 282 lbs (270 lbs in the clinic on 04/27), severe swelling in legs, progressive weakness, O2 saturation in low 80s at rest, increasing to 90s with deep breathing, increased shortness of breath. Pt is taking torsemide 40 mg twice a day, has large urine output per . PLAN Communicated with Dr. Underwood, [facility], provided assessment. Per Dr. Underwood, pt needs hospitalization for diuresis. Contacted [facility] for direct admission, was advised the pt should come to [place] [facility] for evaluation. Contacted Gian and provided these recommendations. Gian is not at home with the pt at this time and will communicate the recommendations to the pt. Disposition/Recommendation: recommended to go to [place] [facility] . Information/Education: patient/caller able to teach back. Caller agreeable to plan of care: yes. The following references were used: nursing clinical judgement and provider Dr. Underwood . ONAL EXTENSION SERVICE SPECIALIST documented in this encounter Plan of Treatment Upcoming Encounters Date Type Department Care Team (Late st Contact Info) Description 08/10/2024 8:30 AM REGIONAL EXTENSION SERVICE SPECIALIST Telemedicine Division of Hematology in [place], [place] [address] [place] [phone] Isidro Zamarripa M.B., B.Ch. [address] [place] [phone] 08/26/2024 8:30 AM REGIONAL EXTENSION SERVICE SPECIALIST Appointment Department of Laboratory Medicine and Pathology, [facility], in [place], [place] [address] [place] [phone] Matthew Mayes M.D. [address] [place] [phone] 08/26/2024 9:00 AM REGIONAL EXTENSION SERVICE SPECIALIST Appointment Department of Cardiac Rehabilitation in [place], [place] [address] [place] [phone] Matthew Mayes M.D. [address] [place] [phone] 08/26/2024 11:00 AM REGIONAL EXTENSION SERVICE SPECIALIST Clinical Support Department of Nutrition and Diabetes Education in [place], [place] [address] [place] [phone] Matthew Mayes M.D. [address] [place] [phone] Karmen Zambrano RDN, LD [address] [place] [phone] 08/27/2024 10:30 AM REGIONAL EXTENSION SERVICE SPECIALIST Office Visit Department of Cardiovascular Medicine in [place], [place] [address] [place] [phone] Matthew Mayes M.D. [address] [place] [phone] 09/14/2024 12:00 PM REGIONAL EXTENSION SERVICE SPECIALIST Appointment Department of Laboratory Medicine and Pathology, [facility] in [place], [place] [address] [place] [phone] Janusz Govea M.B.B.S. [address] [place] [phone] 09/14/2024 2:00 PM REGIONAL EXTENSION SERVICE SPECIALIST Office Visit Division of Hematology in [place], [place] [address] [place] [phone] Janusz Govea M.B.B.S. [address] [place] [phone] documented as of this encounter Visit Diagnoses Not on filedocumented in this encounter Care Teams Stumper Feller Relationship Specialty Start Date End Date Elsewhere, Pcp PCP - General Internal Medicine 01/30/24 documented as of this encounter
--- OUTSIDE RECORDS SUMMARY | 2024-07-21 11:44 | XMS_ITS | Encounter Summary ---
Author Organization [facility] Address [address] [place] [address] Care Team Providers Care Kettle Firer Name Role Phone Elsewhere, Pcp Primary Care Provider Unavailabl e Reason for Referral * Outpatient (Routine) - Authorized Specialty Diagnoses / Procedures Referred By Contac t Referred To Contact Nutrition Diagnoses Loss Weight Matthew Mayes M.D. [address] [place] [phone] Phone: tel: fax: [facility] Referral ID Status Reason Start Date Expiration Date V isits Requested Visits Authorized [id number] Authorized 05/19/2024 11/18/2025 1 1 LANCE WRITER * Outpatient (Routine) - Authorized Specialty Diagnoses / Procedures Referred By Contac t Referred To Contact Endocrinology Diagnoses Loss Weight Matthew Mayes M.D. [address] [place] [phone] Phone: tel: fax: [facility] Referral ID Status Reason Start Date Expiration Date V isits Requested Visits Authorized [id number] Authorized 05/19/2024 11/18/2025 1 1 LANCE WRITER Encounter Details Date Type Department Care Team (Latest Contact Info) Description 05/19/2024 Clinical Communication Department of Cardiovascular Medicine in [place], [place] [address] [place] [phone] Matthew Mayes [address] [place] [address] Social History Tobacco Use Types Packs/Day Years [...] Sex Assigned at Female 07/24/2021 11:03 AM FREELANCE WRITER Legal Sex Female 9:12 PM FREELANCE WRITER Gender Identity Female 07/24/2021 11:03 AM FREELANCE WRITER Sexual Orientation Straight 07/24/2021 11 :03 AM FREELANCE WRITER documented as of this encounter Plan of Treatment Upcoming Encounters Date Type Department Care Team (Late st Contact Info) Description 08/10/2024 8:30 AM FREELANCE WRITER Telemedicine Division of Hematology in [place], [place] [address] [place] [phone] Isidro Zamarripa M.B., B.Ch. [address] [place] [phone] 08/26/2024 8:30 AM FREELANCE WRITER Appointment Department of Laboratory Medicine and Pathology, [facility], in [place], [place] [address] [place] [phone] Matthew Mayes M.D. [address] [place] [phone] 08/26/2024 9:00 AM FREELANCE WRITER Appointment Department of Cardiac Rehabilitation in [place], [place] [address] [place] [phone] Matthew Mayes M.D. [address] [place] [phone] 08/26/2024 11:00 AM FREELANCE WRITER Clinical Support Department of Nutrition and Diabetes Education in [place], [place] [address] [place] [phone] Matthew Mayes M.D. [address] [place] [phone] Karmen Zambrano, JOSE, LD [address] [place] [phone] 08/27/2024 10:30 AM FREELANCE WRITER Office Visit Department of Cardiovascular Medicine in [place], [place] [address] [place] [phone] Matthew Mayes M.D. [address] [place] [phone] 09/14/2024 12:00 PM FREELANCE WRITER Appointment Department of Laboratory Medicine and Pathology, [facility] in [place], [place] [address] [place] [phone] Janusz Govea M.B.B.S. [address] [place] [phone] 09/14/2024 2:00 PM FREELANCE WRITER Office Visit Division of Hematology in [place], [place] [address] [place] [phone] Janusz Govea M.B.B.S. [address] [place] [phone] Scheduled Referrals Name Type Priority Associated Diagnoses [...] Time Protective Environment 01/22/2023 01/22/202305/23 5:22 AM FREELANCE WRITER documented as of this encounter Care Teams Kettle Firer Relationship Specialty Start Date End Date Elsewhere, Pcp PCP - General Internal Medicine 01/30/24 documented as of this encounter
--- OUTSIDE RECORDS SUMMARY | 2024-07-21 11:44 | XMS_ITS | Encounter Summary ---
Author Organization [facility] Address [address] [place] [address] Care Team Providers Care Lookback Coordinator Name Role Phone Elsewhere, Pcp Primary Care Provider Unavailabl e Reason for Referral * Outpatient (Routine) - Authorized Specialty Diagnoses / Procedures Referred By Serena matson Referred To Contact Hematology Oncology Janusz Govea M.B.BZahraaS. [address] [place] [phone] Phone: tel: fax: [facility] Referral ID Status Reason Start Date Expiration Date V isits Requested Visits Authorized [id number] Authorized 06/16/2024 12/16/2025 1 1 OPERATOR Reason for Visit * Outpatient (Routine) - Closed Specialty Diagnoses / Procedures Referred By Serena matson Referred To Contact Hematology Oncology Janusz Govea M.B.B.S. [address] [place] [phone] Phone: tel: fax: [facility] Referral ID Status Reason Start Date Expiration Date Visits Re quested Visits Authorized [id number] Closed 06/03/2024 12/03/2025 1 1 Encounter Details Date Type Department Care Team (Latest Contact Info) Description 06/16/2024 11:30 AM SAW OPERATOR Virtual Visit Division of Hematology in [place], [place] [address] [place] [phone] Janusz Govea M.B.B.S. [address] [place] [phone] Myelofibrosis Primary (HCC) (Primary Dx) Social History [...] Sex Assigned at Female 07/24/2021 11:03 AM SAW OPERATOR Legal Sex Female 9:12 PM SAW OPERATOR Gender Identity Female 07/24/2021 11:03 AM SAW OPERATOR Sexual Orientation Straight 07/24/2021 11 :03 AM SAW OPERATOR documented as of this encounter Progress Notes * Janusz Govea M.B.B.S. - 06/16/2024 11:30 AM CST SUBJECTIVE This is a phone visit to review test results. CHIEF COMPLAINT/REASON FOR VISIT Primary myelofibrosis. HISTORY OF PRESENT ILLNESS Ms. Dobbs is a pleasant 54-year-old female with primary myelofibrosis, status post multiple ELSI inhibitors; ruxolitinib, fedratinib, pacritinib and momelotinib, and 2 clinical trials, Alisertib and 9-ING. 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 Also, is on hydroxyurea 500 mg twice daily to control leukocytosis and thrombocytosis. She follows with Dr. Mayes for severe pulmonary hypertension and tricuspid regurgitation. Most recently, she has noticed worsening in her transfusion requirements. We had trialed luspatercept, but she was unable to tolerate it because of severe headaches. Hence, it was discontinued after 3 shots. I reviewed with her her most recent testing, including a bone marrow aspirate and biopsy, which confirms a myelofibrosis 3+. Cytogenetic and molecular genetic studies are pending. ASSESSMENT / PLAN #1 Type 2 CALR, [id number] mutated primary myelofibrosis. 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 I discussed with her at this time, we are fairly limited in terms of medical management. With respect to the anemia, we decided to trial danazol 200 mg twice daily and I have sent in a prescription to her local [facility]. I reviewed with her the side effects of danazol therapy, including fluid retention, masculinization, and monitoring of the LFTs. Meanwhile, she does have a visit with Dr. Zamarripa on June 29 for consideration of transplant and I discussed with her that that might be what is needed at this point. #4 Pulmonary hypertension with severe tricuspid regurg Dr. Mayes is following. I suspect this is related to her primary myelofibrosis. #5 Obstructive sleep apnea #6 Consideration of allogeneic transplant Visit with Dr. Zamarripa on June 29. I will touch base with her when she is here in person. Total time spent [address] Job ID: [id number] OPERATOR documented in this encounter Plan of Treatment Upcoming Encounters Date Type Department Care Team (Late st Contact Info) Description 08/10/2024 8:30 AM SAW OPERATOR Telemedicine Division of Hematology in [place], [place] [address] [place] [phone] Isidro Zamarripa M.B., B.Ch. [address] [place] [phone] 08/26/2024 8:30 AM SAW OPERATOR Appointment Department of Laboratory Medicine and Pathology, [facility], in [place], [place] [address] [place] [phone] Matthew Mayes M.D. [address] [place] [phone] 08/26/2024 9:00 AM SAW OPERATOR Appointment Department of Cardiac Rehabilitation in [place], [place] [address] [place] [phone] Matthew Mayes M.D. [address] [place] [phone] 08/26/2024 11:00 AM SAW OPERATOR Clinical Support Department of Nutrition and Diabetes Education in [place], [place] [address] [place] [phone] Matthew Mayes M.D. [address] [place] [phone] Karmen Zambrano, RDN, LD [address] [place] [phone] 08/27/2024 10:30 AM SAW OPERATOR Office Visit Department of Cardiovascular Medicine in [place], [place] [address] [place] [phone] Matthew Mayes M.D. [address] [place] [phone] 09/14/2024 12:00 PM SAW OPERATOR Appointment Department of Laboratory Medicine and Pathology, [facility], in [place], [place] [address] [place] [phone] Janusz Govea M.B.B.S. [address] [place] [phone] 09/14/2024 2:00 PM SAW OPERATOR Office Visit Division of Hematology in [place], [place] [address] [place] [phone] Janusz Govea M.B.B.S. [address] [place] [phone] Scheduled Orders Name Type Priority Associated Diagnoses Orde r Schedule CBC with Differential, Blood Lab Routine Myelofibrosis Primary (HCC) Expected: 09/14/2024, Expires: 09/14/2025 Comprehensive Metabolic Panel Lab Routine Myelofibrosis Primary (HCC) Expected: 09/14/2024, Expires: 09/14/2025 Scheduled Referrals Name Type Priority Associated Diagnoses Order Schedule Hematology office visit (clinic) [facility]; CMD; General Outpatient Referral Routine Expected: 09/14/2024, Expires: 09/14/2025 documented as of this encounter Visit Diagnoses Diagnosis Myelofibrosis Primary (HCC)- Primary documented in this encounter Care Teams Lookback Coordinator Relationship Specialty Start Date End Date Elsewhere, Pcp PCP - General Internal Medicine 01/30/24 documented as of this encounter
--- OUTSIDE RECORDS SUMMARY | 2024-07-21 11:44 | XMS_ITS | Encounter Summary ---
Author Organization [facility] Address [address] [place] [phone] Care Team Providers Care Rn Cvor Name Role Phone Elsewhere, Pcp Primary Care Provider Unavailabl e Reason for Visit * Reason Onset Date Comments Symptom Assessment 07/08/2024 Patient wants to be admitted & given Lasix to get rid of excess water weight. Encounter Details Date Type Department Care Team (Latest Contact Info) Description 07/08/2024 Clinical Communication Department of Cardiovascular Medicine in [place], [place] [address] [place] [phone] Matthew Mayes M.D. [address] [place] [phone] Symptom Assessment (Patient wants to be admitted & given Lasix to get rid of excess water weight.) Social History Tobacco Use Types Packs/Day Years Used Date Smoking Tobacco: Former Cigarettes 2012 Passive Smoke Exposure: Never Smokeless Tobacco: Never Comments:still smokes mariju shady Alcohol Use Standard Drinks/Week Comments Yes 0 (1 standard drink = 0.6 oz pur e alcohol) occasional [facility] Utilities Answer Date Recorded In the [...] your living situation today? I have a [facility] place to live 07/09/2024 Comments No Sex and Gender Information Value Date Recorded Sex Assigned at Female 07/24/2021 11:03 AM MANAGER BACKGROUND Legal Sex Female 9:12 PM MANAGER BACKGROUND Gender Identity Female 07/24/2021 11:03 AM MANAGER BACKGROUND Sexual Orientation Straight 07/24/2021 11 :03 AM MANAGER BACKGROUND documented as of this encounter Miscellaneous Notes * Telephone Encounter - Dali Stiles R.N. - 07/08/2024 1:38 PM MANAGER BACKGROUND RN spoke with patient's , Gian, and he stated that patient is unable to lay flat due to her shortness of breath right now, unless she is completely sedated, so believes the bone scan tomorrow will not be able to be completed. Patient is hoping for a direct admission today if possible. RN will let provider no and see we can get this scheduled or if she will need to go to the emergency department for admission. GER BACKGROUND documented in this encounter Plan of Treatment Upcoming Encounters Date Type Department Care Team (Late st Contact Info) Description 08/10/2024 8:30 AM MANAGER BACKGROUND Telemedicine Division of Hematology in [place], [place] [address] [place] [phone] Isidro Zamarripa M.B., B.Ch. [address] [place] [phone] 08/26/2024 8:30 AM MANAGER BACKGROUND Appointment Department of Laboratory Medicine and Pathology, [facility], in [place], [place] [address] [place] [phone] Matthew Mayes M.D. [address] [place] [phone] 08/26/2024 9:00 AM MANAGER BACKGROUND Appointment Department of Cardiac Rehabilitation in [address] [phone] Matthew Mayes M.D. [address] [place] [phone] 08/26/2024 11:00 AM MANAGER BACKGROUND Clinical Support Department of Nutrition and Diabetes Education in [place], [place] [address] [place] [phone] Matthew Mayes M.D. [address] [place] [phone] Karmen Zambrano, JOSE, LD [address] [place] [phone] 08/27/2024 10:30 AM MANAGER BACKGROUND Office Visit Department of Cardiovascular Medicine in [place], [place] [address] [place] [address] [place] [phone] Matthew Mayes M.D. [address] [place] [address] 09/14/2024 12:00 PM MANAGER BACKGROUND Appointment Department of Laboratory Medicine and Pathology, [facility], in [place], [place] [address] [place] [phone] Janusz Govea M.B.B.S. [address] [place] [phone] 09/14/2024 2:00 PM MANAGER BACKGROUND Office Visit Division of Hematology in [place], [place] [address] [place] [address] Janusz Govea M.B.B.S. [address] [place] [phone] documented as of this encounter Visit Diagnoses Not on filedocumented in this encounter Additional Health Concerns Infection Onset Date Last Indicated Resolved Time COVID19 Pending 07/12/2024 07/12/2024 07/12/2024 1 :03 PM MANAGER BACKGROUND documented as of this encounter Care Teams Rn Cvor Relationship Specialty Start Date End Date Elsewhere, Pcp PCP - General Internal Medicine 01/30/24 documented as of this encounter
--- OUTSIDE RECORDS SUMMARY | 2024-07-21 11:44 | XMS_ITS | Encounter Summary ---
Author Organization [facility] Address [address] [place] [address] Care Team Providers Care Overnight Cashier Name Role Phone Elsewhere, Pcp Primary Care Provider Unavailabl e Reason for Visit * Reason Onset Date Comments Prelim Search 07/08/2024 Encounter Details Date Type Department Care Team (Latest Contact Info) Description 07/08/[address] [facility] in [place], [place] [address] [place] [address] Amna Dorman Prelim Search Social History Tobacco Use Types Packs/Day Years Used Date Smoking Tobacco: Former Cigarettes 2012 Passive Smoke Exposure: Never Smokeless Tobacco: Never Comments:still smokes mariju shady Alcohol Use Standard Drinks/Week Comments Yes 0 (1 standard drink = 0.6 oz pur e alcohol) occasional [facility] Utilities Answer Date Recorded In the past 12 months has [facility] [employer], gas, oil, or water [employer] threatened to shut off services in your [...] your living situation today? I have a [employer] place to live 07/09/2024 Comments No Sex and Gender Information Value Date Recorded Sex Assigned at Female 07/24/2021 11:03 AM PHOTOLITHOGRAPHER Legal Sex Female 9:12 PM PHOTOLITHOGRAPHER Gender Identity Female 07/24/2021 11:03 AM PHOTOLITHOGRAPHER Sexual Orientation Straight 07/24/2021 11 :03 AM PHOTOLITHOGRAPHER documented as of this encounter Plan of Treatment Upcoming Encounters Date Type Department Care Team (Late st Contact Info) Description 08/10/2024 8:30 AM PHOTOLITHOGRAPHER Telemedicine Division of Hematology in [place], [place] [address] [place] [phone] Isidro Zamarripa M.B., B.Ch. 200 [place] [phone] 08/26/2024 8:30 AM PHOTOLITHOGRAPHER Appointment Department of Laboratory Medicine and Pathology, [facility], in [place], [place] [address] [place] [phone] Matthew Mayes M.D. [address] [place] [phone] 08/26/2024 9:00 AM PHOTOLITHOGRAPHER Appointment Department of Cardiac Rehabilitation in [place], [place] [address] [place] [address] Matthew Mayes M.D. [address] [place] [phone] 08/26/2024 11:00 AM PHOTOLITHOGRAPHER Clinical Support Department of Nutrition and Diabetes Education in [place], [place] [address] [place] [address] Matthew Mayes M.D. [address] [place] [phone] Karmen Zambrano, JOSE, LD [address] [place] [phone] 08/27/2024 10:30 AM PHOTOLITHOGRAPHER Office Visit Department of Cardiovascular Medicine in [place], [place] [address] [place] [phone] Matthew Mayes M.D. [address] [place] [phone] 09/14/2024 12:00 PM PHOTOLITHOGRAPHER Appointment Department of Laboratory Medicine and Pathology, [facility], in [place], [place] [address] [place] [phone] Janusz Govea M.B.B.S. [address] [place] [phone] 09/14/2024 2:00 PM PHOTOLITHOGRAPHER Office Visit Division of Hematology in [place], [place] [address] [place] [address] Janusz Govea M.B.B.S. [address] [place] [phone] documented as of this encounter Visit Diagnoses Not on filedocumented in this encounter Care Teams Overnight Cashier Relationship Specialty Start Date End Date Elsewhere, Pcp PCP - General Internal Medicine 01/30/24 documented as of this encounter
--- OUTSIDE RECORDS SUMMARY | 2024-07-21 11:44 | XMS_ITS | Encounter Summary ---
Author Organization [facility] Address [address] [place] [address] Care Team Providers Care Head Gauge Unit Operator Name Role Phone Elsewhere, Pcp Primary Care Provider Unavailabl e Encounter Details Date Type Department Care Team (Latest Contact Info) Description 06/07/2024 Intake [facility] Social History Tobacco [...] Assigned at Female 07/24/2021 11:03 AM LABORER AMMUNITION ASSEMBLY Legal Sex Female 9:12 PM LABORER AMMUNITION ASSEMBLY Gender Identity Female 07/24/2021 11:03 AM LABORER AMMUNITION ASSEMBLY Sexual Orientation Straight 07/24/2021 11 :03 AM LABORER AMMUNITION ASSEMBLY documented as of this encounter Plan of Treatment Upcoming Encounters Date Type Department Care Team (Late st Contact Info) Description 08/10/2024 8:30 AM LABORER AMMUNITION ASSEMBLY Telemedicine Division of Hematology in [place], [place] [address] [place] [phone] Isidro Zamarripa M.B., B.Ch. 200 [place] [phone] 08/26/2024 8:30 AM LABORER AMMUNITION ASSEMBLY Appointment Department of Laboratory Medicine and Pathology, [facility], in [place], [place] [address] [place] [phone] Matthew Mayes M.D. [address] [place] [phone] 08/26/2024 9:00 AM LABORER AMMUNITION ASSEMBLY Appointment Department of Cardiac Rehabilitation in [place], [place] [address] [place] [phone] Matthew Mayes M.D. [address] [place] [phone] 08/26/2024 11:00 AM LABORER AMMUNITION ASSEMBLY Clinical Support Department of Nutrition and Diabetes Education in [place], [place] [address] [place] [phone] Matthew Mayes M.D. [address] [place] [phone] Karmen Zambrano, JOSE, LD [address] [place] [phone] 08/27/2024 10:30 AM LABORER AMMUNITION ASSEMBLY Office Visit Department of Cardiovascular Medicine in [place], [place] [address] [place] [phone] Matthew Mayes M.D. [address] [place] [phone] 09/14/2024 12:00 PM LABORER AMMUNITION ASSEMBLY Appointment Department of Laboratory Medicine and Pathology, [facility], in [place], [place] [address] [place] [phone] Janusz Govea M.B.B.SZahraa [address] [place] [phone] 09/14/2024 2:00 PM LABORER AMMUNITION ASSEMBLY Office Visit Division of Hematology in [place], [place] [address] [place] [address] Janusz Govea M.B.BZahraaS. [address] [place] [address] documented as of this encounter Visit Diagnoses Not on filedocumented in this encounter Additional Health Concerns Infection Onset Date Last Indicated Resolved Time COVID19 Pending 07/12/2024 07/12/2024 07/12/2024 1 :03 PM LABORER AMMUNITION ASSEMBLY documented as of this encounter Care Teams Head Gauge Unit Operator Relationship Specialty Start Date End Date Elsewhere, Pcp PCP - General Internal Medicine 01/30/24 documented as of this encounter
--- OUTSIDE RECORDS SUMMARY | 2024-07-21 11:44 | XMS_ITS | Encounter Summary ---
Author Organization [facility] Address [address] [place] [address] Care Team Providers Care School Counsellor Name Role Phone Elsewhere, Pcp Primary Care Provider Unavailabl e Reason for Visit * Reason Comments Med Refill Encounter Details Date Type Department Care Team (Late st Contact Info) Description 06/15/2024 Refill Division of Hematology in [place], [place] [address] [place] [phone] Janusz Govea M.B.BaZhraaS. [address] [place] [phone] Med Refill Social History Tobacco Use Types [...] Sex Assigned at Female 07/24/2021 11:03 AM SANITATION MANAGER Legal Sex Female 9:12 PM SANITATION MANAGER Gender Identity Female 07/24/2021 11:03 AM SANITATION MANAGER Sexual Orientation Straight 07/24/2021 11 :03 AM SANITATION MANAGER documented as of this encounter Plan of Treatment Upcoming Encounters Date Type Department Care Team (Late st Contact Info) Description 08/10/2024 8:30 AM SANITATION MANAGER Telemedicine Division of Hematology in [place], [place] [address] [place] [phone] Isidro Zamarripa M.B., B.Ch. [address] [place] [phone] 08/26/2024 8:30 AM SANITATION MANAGER Appointment Department of Laboratory Medicine and Pathology, [facility] in [place], [place] [address] [place] [phone] Matthew Mayes M.D. [address] [place] [phone] 08/26/2024 9:00 AM SANITATION MANAGER Appointment Department of Cardiac Rehabilitation in [place], [place] [address] [place] [phone] Matthew Mayes M.D. [address] [place] [phone] 08/26/2024 11:00 AM SANITATION MANAGER Clinical Support Department of Nutrition and Diabetes Education in [place], [place] [address] [place] [phone] Matthew Mayes M.D. [address] [place] [phone] Karmen Zambrano, EVIEN, LD [address] [place] [phone] 08/27/2024 10:30 AM SANITATION MANAGER Office Visit Department of Cardiovascular Medicine in [place], [place] [address] [place] [phone] Matthew Mayes M.D. [address] [place] [phone] 09/14/2024 12:00 PM SANITATION MANAGER Appointment Department of Laboratory Medicine and Pathology, [facility], in [place], [place] [address] [place] [address] Janusz Govea M.B.B.S. [address] [place] [address] 09/14/2024 2:00 PM SANITATION MANAGER Office Visit Division of Hematology in [place], [place] [address] [place] [address] Janusz Govea M.B.B.S. [address] [place] [address] documented as of this encounter Visit Diagnoses Not on filedocumented in this encounter Care Teams School Counsellor Relationship Specialty Start Date End Date Elsewhere, Pcp PCP - General Internal Medicine 01/30/24 documented as of this encounter
--- OUTSIDE RECORDS SUMMARY | 2024-07-21 11:44 | XMS_ITS | Encounter Summary ---
Author Organization [facility] Address [address] [place] [address] Care Team Providers Care Nail Cutter Name Role Phone Elsewhere, Pcp Primary Care Provider Unavailabl e Encounter Details Date Type Department Care Team (Latest Contact Info) Description 07/08/2024 Intake [facility] Social History Tobacco Use Types Packs/Day Years Used Date Smoking Tobacco: Former Cigarettes 2012 Passive Smoke Exposure: Never Smokeless Tobacco: Never Comments:still smokes mariju shady Alcohol Use Standard Drinks/Week Comments Yes 0 (1 standard drink = 0.6 oz pur e alcohol) occasional [facility] Utilities Answer Date Recorded In the past [address] [facility] [employer], gas, oil, or water [employer] threatened to shut off services in your [...] your living situation today? I have a [facility] place to live 07/09/2024 Comments No Sex and Gender Information Value Date Recorded Sex Assigned at Female 07/24/2021 11:03 AM DITCHER Legal Sex Female 9:12 PM DITCHER Gender Identity Female 07/24/2021 11:03 AM DITCHER Sexual Orientation Straight 07/24/2021 11 :03 AM DITCHER documented as of this encounter Plan of Treatment Upcoming Encounters Date Type Department Care Team (Late st Contact Info) Description 08/10/2024 8:30 AM DITCHER Telemedicine Division of Hematology in [place], [place] [address] [place] [phone] Isidro Zamarripa M.B., B.Ch. [address] [place] [phone] 08/26/2024 8:30 AM DITCHER Appointment Department of Laboratory Medicine and Pathology, [facility], in [place], [place] [address] [place] [phone] Matthew Mayes M.D. [address] [place] [phone] 08/26/2024 9:00 AM DITCHER Appointment Department of Cardiac Rehabilitation in [place], [place] [address] [place] [address] Matthew Mayes M.D. [address] [place] [phone] 08/26/2024 11:00 AM DITCHER Clinical Support Department of Nutrition and Diabetes Education in [place], [place] [address] [place] [phone] Matthew Mayes M.D. [address] [place] [phone] Karmen Zambrano, JOSE, LD [address] [place] [phone] 08/27/2024 10:30 AM DITCHER Office Visit Department of Cardiovascular Medicine in [place], [place] [address] [place] [phone] Matthew Mayes M.D. [address] [place] [phone] 09/14/2024 12:00 PM DITCHER Appointment Department of Laboratory Medicine and Pathology, [facility] in [place], [place] [address] [place] [phone] Janusz Govea M.B.B.S. [address] [place] [phone] 09/14/2024 2:00 PM DITCHER Office Visit Division of Hematology in [place], [place] [address] [place] [phone] Janusz Govea M.B.B.S. [address] [place] [phone] documented as of this encounter Visit Diagnoses Not on filedocumented in this encounter Additional Health Concerns Infection Onset Date Last Indicated Resolved Time COVID19 Pending 07/12/2024 07/12/2024 07/12/2024 1 :03 PM DITCHER documented as of this encounter Care Teams Nail Cutter Relationship Specialty Start Date End Date Elsewhere, Pcp PCP - General Internal Medicine 01/30/24 documented as of this encounter
--- OUTSIDE RECORDS SUMMARY | 2024-07-21 11:44 | XMS_ITS | Encounter Summary ---
Author Organization [facility] Address [address] [place] [address] Care Team Providers Care Cheese Cooker Name Role Phone Elsewhere, Pcp Primary Care Provider Unavailabl e Encounter Details Date Type Department Care Team (Latest Contact Info) Description 06/29/2024 12:20 PM RING SPINNER - 06/29/2024 11:59 PM RING SPINNER Hospital Encounter Department of Laboratory Medicine and Pathology, [place], [place] [address] [place] [phone] Isidro Zamarripa M.B., B.Ch. [address] [place] [phone] Myelofibrosis (HCC); Anemia; Hemosiderosis Discharge Disposition: Home or Self Care Social [...] Sex Assigned at Female 07/24/2021 11:03 AM RING SPINNER Legal Sex Female 9:12 PM RING SPINNER Gender Identity Female 07/24/2021 11:03 AM RING SPINNER Sexual Orientation Straight 07/24/2021 11 :03 AM RING SPINNER documented as of this encounter Medications at [...] known because they are new for her. buPROPion XL (WELLBUTRIN XL) 150 mg 24 hr tablet Take 150 mg by mouth daily. 11/22/2022 4 danazoL (Danocrine) 200 mg capsule Take 1 capsule (200 mg total) by mouth 2 (two) times a day. 60 capsule 3 06/16/2024 5 oxyCODONE (ROXICODONE) 5 mg immediate release tabletIndications: Acute Pain Exception Take 1 tablet (5 mg total) by mouth 2 (two) times a day Indication: Acute Pain Exception. 8 tablet 03/25/2022 4 predniSONE (Deltasone) 20 mg tablet Take 1 tablet by mouth 2 (two) times a day. 11/11/2023 4 RX WELCOME [id number] P ONLY Welcome packet 1 each 07/28/2023 2:07 PM RING SPINNER 07/18/2023 4 torsemide (Demadex) 20 mg tablet Take 2 tablets (40 mg total) by mouth 2 (two) times a day. 120 tablet 11 03/05/2024 5 documented as of this encounter Plan of Treatment Upcoming Encounters Date Type Department Care Team (Late st Contact Info) Description 08/10/2024 8:30 AM RING SPINNER Telemedicine Division of Hematology in [place], [place] [address] [place] [phone] Isidro Zamarripa M.B., B.Ch. [address] [place] [phone] 08/26/2024 8:30 AM RING SPINNER Appointment Department of Laboratory Medicine and Pathology, [facility], in [place], [place] [address] [place] [phone] Matthew aMyes M.D. [address] [place] [phone] 08/26/2024 9:00 AM RING SPINNER Appointment Department of Cardiac Rehabilitation in [place], [place] [address] [place] [phone] Matthew Mayes M.D. [address] [place] [phone] 08/26/2024 11:00 AM RING SPINNER Clinical Support Department of Nutrition and Diabetes Education in [place], [place] [address] [place] [phone] Matthew Mayes M.D. [address] [place] [phone] Karmen Zambrano, RDN, LD [address] [place] [phone] 08/27/2024 10:30 AM RING SPINNER Office Visit Department of Cardiovascular Medicine in [place], [place] [address] [place] [phone] Matthew Mayes M.D. [address] [place] [phone] 09/14/2024 12:00 PM RING SPINNER Appointment Department of Laboratory Medicine and Pathology, [facility], in [place], [place] [address] [place] [phone] Janusz Govea M.B.B.S. [address] [place] [phone] 09/14/2024 2:00 PM RING SPINNER Office Visit Division of Hematology in [place], [place] [address] [place] [phone] Janusz Govea M.B.B.S. [address] [place] [phone] documented as of this encounter Procedures Procedure Name Priority Date/Time Associated Diagnosis Comments HLA CLASS II TYPING HIGHRES,RECIP,B Routine 06/29/2024 12:51 PM RING SPINNER Myelofibrosis (HCC) HLA CLASS I TYPING HIGHRES,RECIP,B Routine 06/29/2024 12:51 PM RING SPINNER Myelofibrosis (HCC) HLA CLASS I/II COMBINED CPRA, SERUM Routine 06/29/2024 12:51 PM RING SPINNER HLA ANTIBODY SUMMARY REPORT 06/29/2024 12:51 PM RING SPINNER TRANSPLANT ABO CONFIRMATION Routine 06/29/2024 12:51 PM RING SPINNER Myelofibrosis (HCC) CYTOMEGALOVIRUS AB, IGM AND IGG Routine 06/29/2024 12:51 PM RING SPINNER Myelofibrosis (HCC) HLA CLASS II SAB ANTIBODY SCREEN Routine 06/29/2024 12:51 PM RING SPINNER Myelofibrosis (HCC) HLA CLASS I SAB ANTIBODY SCREEN Routine 06/29/2024 12:51 PM RING SPINNER Myelofibrosis (HCC) IRON AND TOT IRON-BINDING CAPACITY, S/P Routine 06/29/2024 12:51 PM RING SPINNER Myelofibrosis (HCC) Anemia FERRITIN, S Routine 06/29/2024 12:51 PM RING SPINNER Myelofibrosis (HCC) Hemosiderosis documented in this encounter Results * HLA Antibody Summary Report (06/29/2024 12:51 PM RING SPINNER) 06/29/2024 12:5 1 PM RING SPINNER Narrative 07/01/2024 10:47 AM RING SPINNER Ordered by an unspecified provider. us Default Authenticator Jean LAB HLA ORDERABLES Fin al Result * HLA Class I/II Combined cPRA, Serum (06/29/2024 12:51 PM RING SPINNER) Class I/II Combined cPRA 2.98 Not Applicable 07/01/2024 10:20 AM RING SPINNER DBB8 Comment: ----ADDITIONAL INFORMATION---- Calculated PRA (cPRA) [...] published by UNOS/OPTN listed here: http://optn.transplant.hrsa.gov CLIA: [id number] CLIA Process Checker: NIXON FLORENTINO,Ph.D. Combined cPRA Specificities see below 07/01/2024 10:20 AM RING SPINNER DBB8 Comment:DP:14:01 Blood 06/29/2024 12:5 1 PM RING SPINNER 06/29/2024 2:33 PM RING SPINNER us Isidro Arrington, B.Ch. LAB HLA ORDERABLES F inal Result Performing Organization Address City/[facility] Co de Phone Number [facility] [address] DBB8 [facility] 200 [place] [address] * (ABNORMAL) Ferritin (06/29/2024 12:51 PM RING SPINNER) Ferritin, S 7389(H) 11 - 328 mcg/L 06/29/2024 2:21 PM RING SPINNER DTL Blood (Blood, Venous) 06/29/2024 12:51 PM RING SPINNER 06/29/2024 1:34 PM RING SPINNER Isidro Arrington, B.Ch. LAB BLOOD ADD-ON Fin al Result Performing Organization Address City/[facility]/ZIP Co de Phone Number [facility] 200 [place], [place] [phone] [place] [address] DTL [facility] 200 [place] [address] * (ABNORMAL) Iron and Total Iron-Binding Capacity (06/29/2024 12:51 PM RING SPINNER) Iron 192(H) 35 - 145 mcg/dL 06/29/2024 2:01 PM RING SPINNER DTL Total Iron Binding Capacity 178(L) 250 - 400 mcg/dL 06/29/2024 2:01 PM RING SPINNER DTL Percent Saturation >90(H) 14 - 50 % 06/29/2024 2:01 PM RING SPINNER DTL Blood (Blood, Venous) 06/29/2024 12:51 PM RING SPINNER 06/29/2024 1:34 PM RING SPINNER Isidro Arrington, B.Ch. LAB BLOOD ADD-ON Fin al Result [facility] [address] [place] [address], [facility] D[facility] [address] [place] [address] * HLA Class II SAB Antibody Screen (06/29/2024 12:51 PM RING SPINNER) Class II SAB Overall Result Positive Not Applicable 07/01/2024 9:07 AM RING SPINNER DBB8 Class II SAB >=5000 MFI NONE 07/01/2024 9:07 AM RING SPINNER DBB8 Class II SAB 1743-9236 MFI see below 07/01/2024 9:07 AM RING SPINNER DBB8 Comment:DP:14:01 Class II SAB 500-1999 MFI see below 07/01/2024 9:07 AM RING SPINNER DBB8 Comment: DR:7 4 DQ:8 6 DP:1 10 SAB DRB1 Specificity see below 07/01/2024 9:07 AM RING SPINNER DBB8 Comment: 7(07:01)[1414], 4(04:04)[518] Format: Serologic Eq.(DRB1 Mol. Allele)[Normalized MFI] NOTE: Data is displayed in descending order by Mean Fluorescence Intensity (MFI). Serologic equivalents can be displayed multiple times for different molecular alleles. SAB UNW266 Specificity NONE 07/01/2024 9:07 AM RING SPINNER DBB8 SAB DQB1 Specificity see below 07/01/2024 9:07 AM RING SPINNER DBB8 Comment: 8(A*03:01;B*03:02)[1092], 8(A*02:01;B*03:02)[817], 6(A*01:03;B*06:01)[588] Format: Serologic Eq.(DQA1;DQB1 Mol. Allele)[Normalized MFI] NOTE: Data is displayed in descending order by Mean Fluorescence Intensity (MFI). Serologic equivalents can be displayed multiple times for different molecular alleles. SAB DPB1 Specificity see below 07/01/2024 9:07 AM RING SPINNER DBB8 Comment: 14(A*02:01;B*14:01)[8354], 1(A*02:01;B*01:01)[939], 10(A*02:02;B*10:01)[715] Format: Serologic Eq.(DPA1;DPB1 Mol. Allele)[Normalized MFI] NOTE: Data is displayed in descending order by Mean Fluorescence Intensity (MFI). Serologic equivalents can be displayed multiple times for different molecular alleles. ----ADDITIONAL INFORMATION---- Method: Luminex Flow Cytometry CLIA: [id number] CLIA Process Checker: NIXON FLORENTINO,Ph.D. Blood (Blood, Venous) 06/29/2024 12:51 PM RING SPINNER 06/29/2024 2:33 PM RING SPINNER Isidro Arrington, B.Ch. LAB HLA ORDERABLES F inal Result [facility] [address] [place] [address], [facility] DBB[facility] [address] [place] [address] * HLA Class I SAB Antibody Screen (06/29/2024 12:51 PM RING SPINNER) Class I SAB Overall Result Negative Not Applicable 07/01/2024 9:03 AM RING SPINNER DBB8 Class I SAB >=5000 MFI NONE 07/01/2024 9:03 AM RING SPINNER DBB8 Class I SAB 9650-1311 MFI NONE 07/01/2024 9:03 AM RING SPINNER DBB8 Class I SAB 500-1999 MFI NONE 07/01/2024 9:03 AM RING SPINNER DBB8 SAB A Specificity NONE 07/01/2024 9:03 AM RING SPINNER DBB8 SAB B Specificity NONE 07/01/2024 9:03 AM RING SPINNER DBB8 SAB C Specificity NONE 07/01/2024 9:03 AM RING SPINNER DBB8 Comment: ----ADDITIONAL INFORMATION---- Method: Luminex Flow Cytometry CLIA: [id number] CLIA Process Checker: NIXON FLORENTINO,Ph.D. Blood (Blood, Venous) 06/29/2024 12:51 PM RING SPINNER 06/29/2024 2:33 PM RING SPINNER Isidro Arrington B.Ch. LAB HLA ORDERABLES F inal Result [facility] [address] [place] [address], [facility] DBB8 [facility] [address] [place] [address] * HLA Class II Typing by High Resolution, Recipient (06/29/2024 12:51 PM RING SPINNER) DRB1 - [address] Not Applicable 07/08/2024 2:05 PM RING SPINNER DBB8 DRB1 - [address] Not Applicable 07/08/2024 2:05 PM RING SPINNER DBB8 DRB1 - 1 [place] DRB1*09:01 Not Applicable 07/08/2024 2:05 PM RING SPINNER DBB8 DRB1 - 2 [place] DRB1*12:01 Not Applicable 07/08/2024 2:05 PM RING SPINNER DBB8 VEQ930 - [address] Not Applicable 07/08/2024 2:05 PM RING SPINNER DBB8 EFA076 - [address] Not Applicable 07/08/2024 2:05 PM RING SPINNER DBB8 LAO742 - 1 [place] DRB3*02:02 Not Applicable 07/08/2024 2:05 PM RING SPINNER DBB8 NSD270 - 2 [place] DRB4*01:03 Not Applicable 07/08/2024 2:05 PM RING SPINNER DBB8 DQB1 - 1 Equivalent DQ7 Not Applicable 07/08/2024 2:05 PM RING SPINNER DBB8 DQB1 - 2 Equivalent DQ9 Not Applicable 07/08/2024 2:05 PM RING SPINNER DBB8 DQB1 - 1 [place] DQB1*03:01 Not Applicable 07/08/2024 2:05 PM RING SPINNER DBB8 DQB1 - 2 [place] DQB1*03:03 Not Applicable 07/08/2024 2:05 PM RING SPINNER DBB8 DQA1 - 1 [place] DQA1*03:02 Not Applicable 07/08/2024 2:05 PM RING SPINNER DBB8 DQA1 - 2 [place] DQA1*05:05 Not Applicable 07/08/2024 2:05 PM RING SPINNER DBB8 DPB1 - 1 [place] DPB1*04:01 Not Applicable 07/08/2024 2:05 PM RING SPINNER DBB8 DPB1 - 2 [place] DPB1*04:01 Not Applicable 07/08/2024 2:05 PM RING SPINNER DBB8 DPA1 - 1 [place] DPA1*01:03 Not Applicable 07/08/2024 2:05 PM RING SPINNER DBB8 DPA1 - 2 [place] DPA1*01:03 Not Applicable 07/08/2024 2:05 PM RING SPINNER DBB8 DRB1 Unresolved Alleles DRB1*09:57 07/08/2024 2:05 PM RING SPINNER DBB8 Test Method PCR - Next Generation Sequencing 07/08/2024 2:05 PM RING SPINNER DBB8 Comment: ----ADDITIONAL INFORMATION---- Common, intermediate and well-documented (CIWD) HLA alleles are resolved or listed if not resolved. Listing of ambiguous rare alleles not resolved can be found in the corresponding unresolved field. (Albert ROSENBERG, Cesar J, Nolan K, et al. 2020; 1-16 https://doi.org/10.1111/GUEVARA.76385). For convenience, when not defined in the WHO Nomenclature a laboratory defined serologic equivalent has been provided. This test was developed and its performance characteristics determined by [facility] in a manner consistent with CLIA requirements. This test has not been cleared or approved by the U.S. Food and Drug Administration. CLIA: [id number] CLIA Process Checker: NIXON FLORENTINO,Ph.D. Blood (Blood, Venous) 06/29/2024 12:51 PM RING SPINNER 06/29/2024 1:45 PM RING SPINNER Isidro Arrington, B.Ch. LAB HLA ORDERABLES F inal Result [facility] [address] [place] [address], [facility] DBB8 [facility] [address] [place] [address] * HLA Class I Typing by High Resolution, Recipient (06/29/2024 12:51 PM RING SPINNER) A - 1 Equivalent A2 Not Applicable 07/08/2024 2:04 PM RING SPINNER DBB8 A - 2 Equivalent A24 Not Applicable 07/08/2024 2:04 PM RING SPINNER DBB8 A - 1 Allele A*02:01 Not Applicable 07/08/2024 2:04 PM RING SPINNER DBB8 A - 2 Allele A*24:02 Not Applicable 07/08/2024 2:04 PM RING SPINNER DBB8 B - 1 Equivalent B44 Not Applicable 07/08/2024 2:04 PM RING SPINNER DBB8 B - 2 Equivalent B51 Not Applicable 07/08/2024 2:04 PM RING SPINNER DBB8 B - 1 Allele B*44:02 Not Applicable 07/08/2024 2:04 PM RING SPINNER DBB8 B - 2 Allele B*51:01 Not Applicable 07/08/2024 2:04 PM RING SPINNER DBB8 Bw - 1 Equivalent Bw4 Not Applicable 07/08/2024 2:04 PM RING SPINNER DBB8 Bw - 2 Equivalent Bw4 Not Applicable 07/08/2024 2:04 PM RING SPINNER DBB8 C - 1 Equivalent Cw5 Not Applicable 07/08/2024 2:04 PM RING SPINNER DBB8 C - 2 Equivalent Cw14 Not Applicable 07/08/2024 2:04 PM RING SPINNER DBB8 C - 1 Allele C*05:01 Not Applicable 07/08/2024 2:04 PM RING SPINNER DBB8 C - 2 Allele C*14:02 Not Applicable 07/08/2024 2:04 PM RING SPINNER DBB8 Test Method PCR - Next Generation Sequencing 07/08/2024 2:04 PM RING SPINNER DBB8 Comment: ----ADDITIONAL INFORMATION---- Common, intermediate and well-documented (CIWD) HLA alleles are resolved or listed if not resolved. Listing of ambiguous rare alleles not resolved can be found in the corresponding unresolved field. (Albert ROSENBERG, Cesar J, Nolan K, et al. 2020; 1-16 https://doi.org/10.1111/GUEVARA.46127). For convenience, when not defined in the WHO Nomenclature a laboratory defined serologic equivalent has been provided. This test was developed and its performance characteristics determined by [facility] in a manner consistent with CLIA requirements. This test has not been cleared or approved by the U.S. Food and Drug Administration. CLIA: [id number] CLIA Process Checker: NIXON FLORENTINO,Ph.D. Blood (Blood, Venous) 06/29/2024 12:51 PM RING SPINNER 06/29/2024 1:46 PM RING SPINNER Narrative [facility] - 07/08/2024 2:04 PM RING SPINNER Specimen Information: Specimen ID: [id number] Specimen Type: Blood Specimen Collection Start Date: 06/29/2024 12:51 PM Specimen Received Date: 06/29/2024 1:46 PM Specimen ID: [id number] Specimen Type: Blood Specimen Collection Start Date: 06/29/2024 12:51 PM Specimen Received Date: 06/29/2024 1:46 PM Specimen ID: [id number] Specimen Type: Blood Specimen Collection Start Date: 06/29/2024 12:51 PM Specimen Received Date: 06/29/2024 1:45 PM us Isidro Arrington B.Ch. LAB HLA ORDERABLES F inal Result Performing Organization Address City/[facility]/ZIP Co de Phone Number [facility] [address] DBB8 [facility] 200 [place] [address] * Transplant ABO Confirmation (06/29/2024 12:51 PM RING SPINNER) Transplant ABO Confirmation A Pos 06/29/2024 1:57 PM RING SPINNER ETRM Blood (Blood, Venous) 06/29/2024 12:51 PM RING SPINNER 06/29/2024 1:21 PM RING SPINNER us Isidro Arrington B.Ch. LAB BLOOD BANK TEST ORDERABLES Final Result Performing Organization Address City/[facility]/ZIP Co de Phone Number [facility] [address] [place] [address] * Cytomegalovirus Ab, IgM and IgG (06/29/2024 12:51 PM RING SPINNER) Cytomegalovirus Ab, IgM, S Negative Negative 06/30/2024 8:52 AM RING SPINNER SDS Cytomegalovirus Ab, IgG, S Negative Negative 06/30/2024 8:52 AM RING SPINNER [facility] Blood (Blood, Venous) 06/29/2024 12:51 PM RING SPINNER 06/29/2024 4:15 PM RING SPINNER us Isidro Arrington B.Ch. LAB MICROBIOLOGY - B LOOD ORDERABLES Final Result [facility] [address] [place] [address] [facility] [address] [place] [address] documented in this encounter Visit Diagnoses Diagnosis Myelofibrosis (HCC) Anemia Hemosiderosis documented in this encounter Care Teams Cheese Cooker Relationship Specialty Start Date End Date Elsewhere, Pcp PCP - General Internal Medicine 01/30/24 documented as of this encounter
--- OUTSIDE RECORDS SUMMARY | 2024-07-21 11:44 | XMS_ITS | Encounter Summary ---
Author Organization [facility] Address [address] [place] [address] Care Team Providers Care Tobacco Weigher Name Role Phone Elsewhere, Pcp Primary Care Provider Unavailabl e Encounter Details Date Type Department Care Team (Late Contact Info) Description 06/29/2024 Orders Only Division of Hematology in [place], [place] [address] [place] [phone] External, Ordering ProviderDewayne Social History Tobacco Use [...] Sex Assigned at Female 07/24/2021 11:03 AM HEAVY REPAIRER Legal Sex Female 9:12 PM HEAVY REPAIRER Gender Identity Female 07/24/2021 11:03 AM HEAVY REPAIRER Sexual Orientation Straight 07/24/2021 11 :03 AM HEAVY REPAIRER documented as of this encounter Plan of Treatment Upcoming Encounters Date Type Department Care Team (Late Contact Info) Description 08/10/2024 8:30 AM HEAVY REPAIRER Telemedicine Division of Hematology in [place], [place] [address] [place] [phone] Isidro Zamarripa M.B., B.Ch. [address] [place] [phone] 08/26/2024 8:30 AM HEAVY REPAIRER Appointment Department of Laboratory Medicine and Pathology, [facility], in [place], [place] [address] [place] [phone] Matthew Mayes M.D. [address] [place] [phone] 08/26/2024 9:00 AM HEAVY REPAIRER Appointment Department of Cardiac Rehabilitation in [place], [place] [address] [place] [phone] Matthew Mayes M.D. [address] [place] [phone] 08/26/2024 11:00 AM HEAVY REPAIRER Clinical Support Department of Nutrition and Diabetes Education in [place], [place] [address] [place] [phone] Matthew Mayes M.D. [address] [place] [phone] Karmen Zambrano, JOSE, LD [address] [place] [phone] 08/27/2024 10:30 AM HEAVY REPAIRER Office Visit Department of Cardiovascular Medicine in [place], [place] [address] [place] [phone] Matthew Mayes M.D. [address] [place] [phone] 09/14/2024 12:00 PM HEAVY REPAIRER Appointment Department of Laboratory Medicine and Pathology, [facility], in [place], [place] [address] [place] [phone] Janusz Govea M.B.B.S. [address] [place] [phone] 09/14/2024 2:00 PM HEAVY REPAIRER Office Visit Division of Hematology in [place], [place] [address] [place] [phone] Janusz Govea M.B.BZahraaS. [address] [place] [phone] documented as of this encounter Procedures Procedure Name Priority Date/Time Associated Diagnosis Comments CBC WITH DIFFERENTIAL, B Routine 06/29/2024 9:19 AM HEAVY REPAIRER documented in this encounter Results * (ABNORMAL) CBC with Differential, Blood (06/29/2024 9:19 AM HEAVY REPAIRER) EXT Leukocytes 59.58(H) 4.50 - 11.00 K/uL [facility] EXT Hematocrit 24.1(L) 33.0 - 51.0 ML [facility] EXT MCV 94 80 - 100 fL [facility] EXT Neutrophils 16.80(H) 1.7 - 7.0 K/uL [facility] EXT Lymphocytes 6.00(H) 0.90 - 2.90 K/uL [facility] EXT Monocytes 1.00(H) 0.00 - 0.90 K/UL [facility] EXT RBC 2.56(L) 4.00 - 5.20 m/uL [facility] EXT Hemoglobin 7.2(L) 12.0 - 16.0 gm/dL [facility] EXT Platelet Count 475(H) 140 - 440 K/uL [facility] EXT RDW 22.6(H) 11.5 - 15.5 % [facility] EXT Eosinophils 0.10 0.00 - 0.50 K/uL [facility] EXT Basophils 2.7(H) 0.00 - 0.30 K/uL [facility] 06/29/2024 9:19 AM HEAVY REPAIRER Narrative [facility] - 06/29/2024 10:27 AM HEAVY REPAIRER External results verified in Extract by Jocelyne Lang on 06/29/2024 at 11:19 AM. Xuan us Ordering Provider External MKathleen LAB BLOOD ADD-ON Final Result [facility] [address] [place] [address] documented in this encounter Visit Diagnoses Not on filedocumented in this encounter Care Teams Tobacco Weigher Relationship Specialty Start Date End Date Elsewhere, Pcp PCP - General Internal Medicine 01/30/24 documented as of this encounter
--- OUTSIDE RECORDS SUMMARY | 2024-07-21 11:44 | XMS_ITS | Encounter Summary ---
Author Organization [facility] Address [address] [place] [address] Care Team Providers Care Call Center Professional Name Role Phone Elsewhere, Pcp Primary Care Provider Unavailabl e Reason for Visit * Outpatient (Routine) - Closed Specialty Diagnoses / Procedures Referred By Serena matson Referred To Contact Diagnoses Myelofibrosis Primary (HCC) Procedures Biopsy Bone Marrow, Sedated Janusz Govea M.B.B.S. [address] [place] [phone] Phone: tel: fax: [facility] Referral ID Status Reason Start Date Expiration Date Visits Re quested Visits Authorized [id number] Closed 06/03/2024 06/03/2025 1 1 Encounter Details Date Type Department Care Team (Latest Contact Info) Description 06/11/2024 2:00 PM STAFF COMBAT INFORMATION CENTER OFFICER Procedure visit Department of Infusion Therapy in [place], [place] [address] [place] [phone] Janusz Govea M.B.B.S. [address] [place] [phone] Benja Worrell R.N. [address] [place] [phone] Malignant Neoplasm Of Bone Primary (HCC) (Primary Dx) Social History Tobacco [...] Sex Assigned at Female 07/24/2021 11:03 AM STAFF COMBAT INFORMATION CENTER OFFICER Legal Sex Female 9:12 PM STAFF COMBAT INFORMATION CENTER OFFICER Gender Identity Female 07/24/2021 11:03 AM STAFF COMBAT INFORMATION CENTER OFFICER Sexual Orientation Straight 07/24/2021 11 :03 AM STAFF COMBAT INFORMATION CENTER OFFICER documented as of this encounter Procedure Notes * Benja Worrell R.N. - 06/11/2024 2:00 PM CSTAssociated Order(s): Biopsy Bone Marrow, Sedated Pre-Procedure Diagnose(s): Myelofibrosis Primary (HCC) Biopsy Bone Marrow, Sedated Performed by: Benja Worrell R.N. Authorized by: Janusz Govea M.B.BZahraaSZahraa Care team members present 1. Benja Worrell [...] instructions provided COMMENTS Lidocaine 1% 200 mg. F COMBAT INFORMATION CENTER OFFICER documented in this encounter Plan of Treatment Upcoming Encounters Date Type Department Care Team (Late st Contact Info) Description 08/10/2024 8:30 AM STAFF COMBAT INFORMATION CENTER OFFICER Telemedicine Division of Hematology in [place], [place] [address] [place] [phone] Isidro Zamarripa M.B., B.Ch. [address] [place] [phone] 08/26/2024 8:30 AM STAFF COMBAT INFORMATION CENTER OFFICER Appointment Department of Laboratory Medicine and Pathology, [facility] in [place], [place] [address] [place] [phone] Matthew Mayes M.D. [address] [place] [phone] 08/26/2024 9:00 AM STAFF COMBAT INFORMATION CENTER OFFICER Appointment Department of Cardiac Rehabilitation in [place], [place] [address] [place] [phone] Matthew Mayes M.D. [address] [place] [phone] 08/26/2024 11:00 AM STAFF COMBAT INFORMATION CENTER OFFICER Clinical Support Department of Nutrition and Diabetes Education in [place], [place] [address] [place] [phone] Matthew Mayes M.D. [address] [place] [phone] Karmen Zambrano, EVIEN, LD [address] [place] [phone] 08/27/2024 10:30 AM STAFF COMBAT INFORMATION CENTER OFFICER Office Visit Department of Cardiovascular Medicine in [place], [place] [address] [place] [phone] Matthew Mayes M.D. [address] [place] [phone] 09/14/2024 12:00 PM STAFF COMBAT INFORMATION CENTER OFFICER Appointment Department of Laboratory Medicine and Pathology, [facility] in [place], [place] [address] [place] [address] Janusz Govea M.B.B.S. [address] [place] [phone] 09/14/2024 2:00 PM STAFF COMBAT INFORMATION CENTER OFFICER Office Visit Division of Hematology in [place], [place] [address] [place] [phone] Janusz Govea M.B.B.S. [address] [place] [phone] documented as of this encounter Procedures Procedure Name Priority Date/Time Associated Diagnosis Comments FL DX BONE MARROW BX & ASPIR Routine 06/11/2024 2:00 PM STAFF COMBAT INFORMATION CENTER OFFICER Myelofibrosis Primary (HCC) documented in this encounter Visit Diagnoses Diagnosis Malignant Neoplasm Of Bone Primary (HCC)- Primary documented in this encounter Care Teams Call Center Professional Relationship Specialty Start Date End Date Elsewhere, Pcp PCP - General Internal Medicine 01/30/24 documented as of this encounter
--- OUTSIDE RECORDS SUMMARY | 2024-07-21 11:44 | XMS_ITS | Encounter Summary ---
Author Organization [facility] Address [address] [place] [phone] Care Team Providers Care Motorcycle Service Technician Name Role Phone Elsewhere, Pcp Primary Care Provider Unavailabl e Encounter Details Date Type Department Care Team (Late Contact Info) Description 07/06/2024 Orders Only Division of Hematology in [place], [place] [address] [place] [phone] External, Ordering ProviderDewayne Social History Tobacco Use Types Packs/Day Years Used Date Smoking Tobacco: Former Cigarettes 1 1 - 2012 Passive Smoke Exposure: Never Smokeless [...] Assigned at Female 07/24/2021 11:03 AM PROJECT INTERN Legal Sex Female 9:12 PM PROJECT INTERN Gender Identity Female 07/24/2021 11:03 AM PROJECT INTERN Sexual Orientation Straight 07/24/2021 11 :03 AM PROJECT INTERN documented as of this encounter Plan of Treatment Upcoming Encounters Date Type Department Care Team (Late Contact Info) Description 08/10/2024 8:30 AM PROJECT INTERN Telemedicine Division of Hematology in [place], [place] [address] [place] [phone] Iisdro Zamarripa M.B., B.Ch. [address] [place] [phone] 08/26/2024 8:30 AM PROJECT INTERN Appointment Department of Laboratory Medicine and Pathology, [facility], in [place], [place] [address] [place] [phone] Matthew Mayes M.D. [address] [place] [phone] 08/26/2024 9:00 AM PROJECT INTERN Appointment Department of Cardiac Rehabilitation in [place], [place] [address] [place] [phone] Matthew Mayes M.D. [address] [place] [phone] 08/26/2024 11:00 AM PROJECT INTERN Clinical Support Department of Nutrition and Diabetes Education in [place], [place] [address] [place] [phone] Matthew Mayes M.D. [address] [place] [phone] Karmen Zambrano, JOSE, LD [address] [place] [phone] 08/27/2024 10:30 AM PROJECT INTERN Office Visit Department of Cardiovascular Medicine in [place], [place] [address] [place] [address] Matthew Mayes M.D. [address] [place] [phone] 09/14/2024 12:00 PM PROJECT INTERN Appointment Department of Laboratory Medicine and Pathology, [facility], in [place], [place] [address] [place] [phone] Janusz Govea M.B.B.S. [address] [place] [phone] 09/14/2024 2:00 PM PROJECT INTERN Office Visit Division of Hematology in [place], [place] [address] [place] [phone] Janusz Govea M.B.B.S. [address] [place] [phone] documented as of this encounter Procedures Procedure Name Priority Date/Time Associated Diagnosis Comments CBC WITH DIFFERENTIAL, B Routine 07/06/2024 11:05 AM PROJECT INTERN documented in this encounter Results * (ABNORMAL) CBC with Differential, Blood (07/06/2024 11:05 AM PROJECT INTERN) EXT Leukocytes 53.97(H) 4.50 - 11.00 K/uL SCANNED REPORT EXT Hematocrit 24.1(L) 33.0 - 51.0 % SCANNED REPORT EXT MCV 96 80 - 100 fL SCANNED REPORT EXT Platelet Count 438 140 - 440 K/uL SCANNED REPORT EXT Neutrophils 16.30(H) 1.7 - 7.0 K/uL SCANNED REPORT EXT Lymphocytes 2.90 0.90 - 2.90 K/uL SCANNED REPORT EXT Monocytes 1.10(H) 0.00 - 0.90 K/UL SCANNED REPORT EXT RBC 2.52(L) 4.0 - 5.20 M/uL SCANNED REPORT EXT Hemoglobin 7.4(L) 12.0 - 16.0 gm/dL SCANNED REPORT 07/06/2024 11:0 5 AM PROJECT INTERN Narrative SCANNED REPORT - 07/06/2024 11:05 AM PROJECT INTERN External results verified in Extract by Zeinab Alan on 07/06/2024 at 01:[address] Govea us Ordering Provider External M.DZahraa LAB BLOOD ADD-ON Final Result SCANNED REPORT documented in this encounter Visit Diagnoses Not on filedocumented in this encounter Care Teams Motorcycle Service Technician Relationship Specialty Start Date End Date Elsewhere, Pcp PCP - General Internal Medicine 01/30/24 documented as of this encounter
[2024-07-21 12:43] LABS: Appearance Urine Clear (Clear); Bilirubin Urine Negative (Negative); Blood Urine Negative (Negative); Color Urine Yellow (Yellow); Glucose Urine Negative (Negative); Ketones Urine Negative (Negative); Leukocyte Esterase Urine Negative (Negative); Nitrite Urine Negative (Negative); Protein Urine Negative (Negative); Specific Gravity Urine 1.015 (1.000-1.030); Urobilinogen Urine 0.2 (0.2-1.0)
--- NOTE | 2024-07-21 12:55 | CRLHL7_ITS ---
For Patients: As a result of the Century Cures Act, medical imaging exams and procedure reports are released immediately into your electronic medical record. You may view this report before your referring provider. If you have questions, please contact your health care provider. INDICATION: Dyspnea. TECHNIQUE: Chest radiographs, 2 views. COMPARISON: None. FINDINGS: Cardiovascular/Mediastinum: Mildly enlarged heart size. Unremarkable. Lungs: Lower lobe consolidation. Linear band like opacification of the lungs bilaterally, likely subsegmental atelectasis and/or scarring. Airways: Trachea remains midline. Pleura: Small right pleural effusion. Bones: No acute osseous abnormalities. Upper abdomen: Unremarkable. IMPRESSION: Findings suspicious for right lower lobe pneumonia in the appropriate clinical setting. Dictated by Danielito Lopez MD @ 07/21/2024 1:29:09 PM (Electronically Signed)
[2024-07-21 13:02] LABS: RBC Urine 0-2 (0-2); WBC Urine 0-2 (0-5)
--- NOTE | 2024-07-21 13:15 | ED.GENADULT ---
HPI - General Adult General Date Seen: 07/21/24 <Horacio Santana - Last Filed: 07/21/24 20:06> Chief complaint: Shortness of Breath/Dyspnea <Horacio Santana - Last Filed: 07/21/24 20:06> Stated complaint: fluid retention/pain <Horacio Santana - Last Filed: 07/21/24 20:06> Time Seen by Provider: 07/21/24 12:07 <Horacio Khushbu StuartMax - Last Filed: 07/21/24 20:06> Source: patient <Horacio Santana - Last Filed: 07/21/24 20:06> Mode of arrival: wheelchair <Horacio Santana - Last Filed: 07/21/24 20:06> Limitations: no limitations <Horacio Santana - Last Filed: 07/21/24 20:06> History of Present Illness HPI narrative: Patient is a 54-year-old female presenting for shortness of breath, weakness, fluid retention. She has a history of heart rate earlier with pulmonary hypertension, leukemia, transfusion-dependent anemia, severe tricuspid regurgitation, chronic bone pain, anxiety presenting to the emergency department for increased fluid retention, weakness, anxiety. She states she was hospitalized and [facility] is for 7 days under continuous torsemide. They were able to get about 10 lb of fluid off she states. She still was not feeling well enough to be discharged but was sent home. Since she was discharged she has been on 60 mg Toradol twice a day and states the fluid retention has been getting worse again. She states she can only stand up for a minute before she becomes very short of breath necessary down again. She states is making it unsafe for her at home. Her is helping her as much as he can. She also states she has some mild chest pain that she states is intermittent in nature but has had this pain before. States she has not been eating or drinking much issues afraid it will cause worsening fluid retention and when she does try to eat she gets very anxious and feels like she is being suffocated. She is on home oxygen on 1-2 L which she states she was just placed on but has likely needed for a while. She is having some chronic pain also in previously smoked marijuana but is now using gummies. Is concerned she also be anemic as she typically needs an infusion every week due to her leukemia. Has been told if she cannot get a bone marrow biopsy showed likely in 3-6 months. This is causing her even more anxiety. Is not having any associated abdominal pain or nausea. Denies lightheadedness, numbness, weakness. Does state it is hard to move around cut her legs feel extremely heavy due to the fluid. <Horacio Santana, - Last Filed: 07/21/24 20:06> Related Data Home medications: Home Medications ?Medication ?Instructions ?Recorded ?Confirmed acetaminophen 500 mg capsule 500 - 1,000 mg PO Q6H PRN 01/02/22 03/19/24 allopurinol 300 mg tablet 300 mg PO QDAY 01/02/22 07/21/24 sodium bicarbonate 1,650 mg-citric 1 tab PO PRN 01/17/22 03/19/24 acid 1,000 mg effervescent tablet ([place] Heartburn) hydroxyurea 500 mg capsule (Hydrea) 500 mg PO BID 05/07/22 07/21/24 polyethylene glycol 3350 17 17 g PO BID PRN constipation 05/07/22 03/19/24 gram/dose oral powder (Miralax) cannabis PO 05/21/22 02/05/24 sildenafil (pulm.hypertension) 20 20 mg PO TID 09/23/23 07/21/24 mg tablet diphenhydramine 25 1 tab PO QHS PRN 11/18/23 07/21/24 mg-acetaminophen 500 mg tablet (Tylenol PM Extra Strength) sennosides 8.6 mg tablet (senna) See Rx Instructions .Route 12/12/23 07/21/24 .COMPLEX PRN constipation torsemide 20 mg tablet 60 mg PO BID 03/19/24 07/21/24 Previous Rx's ?Medication ?Instructions ?Recorded omeprazole 20 mg capsule,delayed 20 mg PO QDAY #30 caps 11/11/23 release morphine 15 mg tablet,extended 15 mg PO Q12H pain #60 tabs 07/05/24 release morphine 30 mg tablet,extended 30 mg PO Q12H #60 tabs 07/05/24 release oxycodone 5 mg capsule 5 mg PO Q8H PRN pain #60 caplets 07/05/24 <Horacioadelina Santana DO - Last Filed: 07/21/24 20:06> Allergies/adverse reactions: Allergies Allergy/AdvReac Type Severity Reaction Status Date / Time No Known Drug Allergies Allergy Verified 06/17/24 08:59 <Horacio Santana DO - Last Filed: 07/21/24 20:06> Review of Systems Status of ROS: Reports: 10 or more systems reviewed and unremarkable except as noted in History and below <Horacio Santana DO - Last Filed: 07/21/24 20:06> PFSH PFS Surgical History: Surgical History History of tonsillectomy and adenoidectomy ?Z90.89 - Acquired absence of other organs (ICD-10) 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 Denies alcohol use, or other substances. Previously smoked cannabis, now using medical marijuana per dispensary. What is your current living situation?: I presently have a place to live Problems where you live: no known problems In the past 12 months, utilities in danger of being shut off: no In past 12 months, lack of transportation kept you from medical appts, meetings, work, or getting things needed for daily living: no In the past 12 mos, have been you worried that your food would run out before you had money to buy more?: never true In the past 12 mos, the food you bought just didn't last and you didn't have money to buy more?: never true Smoking Status: Former smoker Do you use any of these nicotine containing products: None Second hand tobacco smoke exposure: No How often do you have a drink containing alcohol: never How often do you have six or more drinks on one occasion: Never AUDIT-C Alcohol total score: 0 Non-prescribed substance use: denies use How often does anyone, including family, friends and others, physically hurt you: never How often does anyone, including family, friends and others, insult or talk down to you: never How often does anyone, including family, friends and others, threaten you with harm: never How often does anyone, including family, friends and others, scream or curse at you: never service: No <Horacio Santana DO - Last Filed: 07/21/24 20:06> Exam Narrative: Exam Narrative: Const: Obese, in moderate distress, tearful Eyes: PERRL, no conjunctival injection, and symmetrical lids HENT: Atraumatic external nose and ears. Moist mucous membranes. Neck: Symmetric, trachea midline, No thyromegaly. CVS: RRR, No murmurs or gallops. Peripheral pulses 2+ and equal in all extremities Extremities: Extremities w/o deformity, Normal Active ROM, +3 pitting edema bilaterally legs up to the hip RESP: Unlabored respiratory effort. Clear to auscultation bilaterally. GI: Nontender/Nondistended, No rebound or guarding. Skin: Warm, Dry. No rashes or lesions. Neuro: Normal Muscle tone, No focal neurological deficits. Psych: Awake, Alert, & Oriented x3. Appropriate mood and affect. <Horacio Santana DO - Last Filed: 07/21/24 20:06> Const: Vital Signs, click to edit/add: Vital Signs - 24 hr 07/21/24 11:41 07/21/24 12:36 07/21/24 13:00 Temperature 97.3 F L Pulse Rate 80 78 Pulse Rate [Pulse Oximeter] 104 H Respiratory Rate 24 18 Blood Pressure 113/54 L Blood Pressure [Ri ght Upper Arm] 114/61 Pulse Oximetry 91 94 96 Oxygen Delivery Me thod Nasal Cannula Oxygen Flow Rate 2 07/21/24 13:30 07/21/24 13:35 07/21/24 14:02 Temperature Pulse Rate 79 81 76 Pulse Rate [Pulse Oximeter] Respiratory Rate 14 16 16 Blood Pressure 105/49 L 101/50 L 105/56 L Blood Pressure [Ri ght Upper Arm] Pulse Oximetry 94 96 96 Oxygen Delivery Me thod Nasal Cannula Oxygen Flow Rate 2 07/21/24 14:32 07/21/24 14:33 07/21/24 14:45 Temperature Pulse Rate 76 82 84 Pulse Rate [Pulse Oximeter] Respiratory Rate 14 Blood Pressure 102/45 L Blood Pressure [Ri ght Upper Arm] Pulse Oximetry 94 95 97 Oxygen Delivery Me thod Nasal Cannula Oxygen Flow Rate 2 07/21/24 15:00 07/21/24 15:15 07/21/24 15:17 Temperature Pulse Rate 82 79 79 Pulse Rate [Pulse Oximeter] Respiratory Rate Blood Pressure 100/52 L Blood Pressure [Ri ght Upper Arm] Pulse Oximetry 96 97 97 Oxygen Delivery Me thod Oxygen Flow Rate 07/21/24 16:02 07/21/24 16:21 07/21/24 16:30 Temperature Pulse Rate 78 87 87 Pulse Rate [Pulse Oximeter] Respiratory Rate 18 Blood Pressure 105/46 L Blood Pressure [Ri ght Upper Arm] Pulse Oximetry 92 91 91 Oxygen Delivery Me thod Oxygen Flow Rate 07/21/24 16:32 07/21/24 16:32 07/21/24 17:02 Temperature Pulse Rate 86 86 90 Pulse Rate [Pulse Oximeter] Respiratory Rate 18 Blood Pressure 104/51 L 104/51 L 111/51 L Blood Pressure [Ri ght Upper Arm] Pulse Oximetry 94 94 95 Oxygen Delivery Me thod Oxygen Flow Rate 07/21/24 17:32 07/21/24 18:02 07/21/24 18:30 Temperature Pulse Rate 94 87 88 Pulse Rate [Pulse Oximeter] Respiratory Rate 20 22 20 Blood Pressure 111/50 L 107/47 L 109/54 L Blood Pressure [Ri ght Upper Arm] Pulse Oximetry 93 94 95 Oxygen Delivery Me thod Nasal Cannula Oxygen Flow Rate 2 07/21/24 18:39 07/21/24 18:53 07/21/24 18:55 Temperature 97.5 F L 97.9 F 97.9 F Pulse Rate 94 99 99 Pulse Rate [Pulse Oximeter] Respiratory Rate 14 16 16 Blood Pressure 109/54 L 110/65 110/65 Blood Pressure [Ri ght Upper Arm] Pulse Oximetry 92 93 93 Oxygen Delivery Me thod Nasal Cannula Oxygen Flow Rate 3 07/21/24 19:02 07/21/24 19:03 07/21/24 19:25 Temperature 97.7 F Pulse Rate 93 91 87 Pulse Rate [Pulse Oximeter] Respiratory Rate 16 18 Blood Pressure 103/34 L 112/51 L Blood Pressure [Ri ght Upper Arm] Pulse Oximetry 89 94 97 Oxygen Delivery Me thod Oxygen Flow Rate 3 07/21/24 19:33 07/21/24 19:55 07/21/24 20:02 Temperature 97.5 F L Pulse Rate 89 84 87 Pulse Rate [Pulse Oximeter] Respiratory Rate 18 16 14 Blood Pressure 112/51 L 104/68 104/44 L Blood Pressure [Ri ght Upper Arm] Pulse Oximetry 96 97 98 Oxygen Delivery Me thod Nasal Cannula Oxygen Flow Rate 07/21/24 20:25 07/21/24 20:30 07/21/24 20:55 Temperature 97.6 F 97.8 F Pulse Rate 87 89 90 Pulse Rate [Pulse Oximeter] Respiratory Rate 16 16 Blood Pressure 112/72 105/49 L Blood Pressure [Ri ght Upper Arm] Pulse Oximetry 98 96 95 Oxygen Delivery Me thod Oxygen Flow Rate 2 07/21/24 21:25 07/21/24 21:45 07/21/24 21:54 Temperature 98.0 F 97.8 F Pulse Rate 85 88 85 Pulse Rate [Pulse Oximeter] Respiratory Rate 16 16 Blood Pressure 100/55 L 106/48 L Blood Pressure [Ri ght Upper Arm] Pulse Oximetry 94 94 95 Oxygen Delivery Me thod Oxygen Flow Rate 07/21/24 22:25 07/21/24 22:53 Temperature 98.4 F Pulse Rate 102 H 101 H Pulse Rate [Pulse Oximeter] Respiratory Rate 20 20 Blood Pressure 108/41 L 105/53 L Blood Pressure [Ri ght Upper Arm] Pulse Oximetry 94 93 Oxygen Delivery Me thod Nasal Cannula Oxygen Flow Rate 2 <Horacio Santana, DO - Last Filed: 07/21/24 20:06> Vital Signs, click to edit/add: Vital Signs - 24 hr 07/21/24 11:41 07/21/24 12:36 07/21/24 13:00 Temperature 97.3 F L Pulse Rate 80 78 Pulse Rate [Pulse Oximeter] 104 H Respiratory Rate 24 18 Blood Pressure 113/54 L Blood Pressure [Ri ght Upper Arm] 114/61 Pulse Oximetry 91 94 96 Oxygen Delivery Me thod Nasal Cannula Oxygen Flow Rate 2 07/21/24 13:30 07/21/24 13:35 07/21/24 14:02 Temperature Pulse Rate 79 81 76 Pulse Rate [Pulse Oximeter] Respiratory Rate 14 16 16 Blood Pressure 105/49 L 101/50 L 105/56 L Blood Pressure [Ri ght Upper Arm] Pulse Oximetry 94 96 96 Oxygen Delivery Me thod Nasal Cannula Oxygen Flow Rate 2 07/21/24 14:32 07/21/24 14:33 07/21/24 14:45 Temperature Pulse Rate 76 82 84 Pulse Rate [Pulse Oximeter] Respiratory Rate 14 Blood Pressure 102/45 L Blood Pressure [Ri ght Upper Arm] Pulse Oximetry 94 95 97 Oxygen Delivery Me thod Nasal Cannula Oxygen Flow Rate 2 07/21/24 15:00 07/21/24 15:15 07/21/24 15:17 Temperature Pulse Rate 82 79 79 Pulse Rate [Pulse Oximeter] Respiratory Rate Blood Pressure 100/52 L Blood Pressure [Ri ght Upper Arm] Pulse Oximetry 96 97 97 Oxygen Delivery Me thod Oxygen Flow Rate 07/21/24 16:02 07/21/24 16:21 07/21/24 16:30 Temperature Pulse Rate 78 87 87 Pulse Rate [Pulse Oximeter] Respiratory Rate 18 Blood Pressure 105/46 L Blood Pressure [Ri ght Upper Arm] Pulse Oximetry 92 91 91 Oxygen Delivery Me thod Oxygen Flow Rate 07/21/24 16:32 07/21/24 16:32 07/21/24 17:02 Temperature Pulse Rate 86 86 90 Pulse Rate [Pulse Oximeter] Respiratory Rate 18 Blood Pressure 104/51 L 104/51 L 111/51 L Blood Pressure [Ri ght Upper Arm] Pulse Oximetry 94 94 95 Oxygen Delivery Me thod Oxygen Flow Rate 07/21/24 17:32 07/21/24 18:02 07/21/24 18:30 Temperature Pulse Rate 94 87 88 Pulse Rate [Pulse Oximeter] Respiratory Rate 20 22 20 Blood Pressure 111/50 L 107/47 L 109/54 L Blood Pressure [Ri ght Upper Arm] Pulse Oximetry 93 94 95 Oxygen Delivery Me thod Nasal Cannula Oxygen Flow Rate 2 07/21/24 18:39 07/21/24 18:53 07/21/24 18:55 Temperature 97.5 F L 97.9 F 97.9 F Pulse Rate 94 99 99 Pulse Rate [Pulse Oximeter] Respiratory Rate 14 16 16 Blood Pressure 109/54 L 110/65 110/65 Blood Pressure [Ri ght Upper Arm] Pulse Oximetry 92 93 93 Oxygen Delivery Me thod Nasal Cannula Oxygen Flow Rate 3 07/21/24 19:02 07/21/24 19:03 07/21/24 19:25 Temperature 97.7 F Pulse Rate 93 91 87 Pulse Rate [Pulse Oximeter] Respiratory Rate 16 18 Blood Pressure 103/34 L 112/51 L Blood Pressure [Ri ght Upper Arm] Pulse Oximetry 89 94 97 Oxygen Delivery Me thod Oxygen Flow Rate 3 07/21/24 19:33 07/21/24 19:55 07/21/24 20:02 Temperature 97.5 F L Pulse Rate 89 84 87 Pulse Rate [Pulse Oximeter] Respiratory Rate 18 16 14 Blood Pressure 112/51 L 104/68 104/44 L Blood Pressure [Ri ght Upper Arm] Pulse Oximetry 96 97 98 Oxygen Delivery Me thod Nasal Cannula Oxygen Flow Rate 07/21/24 20:25 07/21/24 20:30 07/21/24 20:55 Temperature 97.6 F 97.8 F Pulse Rate 87 89 90 Pulse Rate [Pulse Oximeter] Respiratory Rate 16 16 Blood Pressure 112/72 105/49 L Blood Pressure [Ri ght Upper Arm] Pulse Oximetry 98 96 95 Oxygen Delivery Me thod Oxygen Flow Rate 2 07/21/24 21:25 07/21/24 21:45 07/21/24 21:54 Temperature 98.0 F 97.8 F Pulse Rate 85 88 85 Pulse Rate [Pulse Oximeter] Respiratory Rate 16 16 Blood Pressure 100/55 L 106/48 L Blood Pressure [Ri ght Upper Arm] Pulse Oximetry 94 94 95 Oxygen Delivery Me thod Oxygen Flow Rate 07/21/24 22:25 07/21/24 22:53 Temperature 98.4 F Pulse Rate 102 H 101 H Pulse Rate [Pulse Oximeter] Respiratory Rate 20 20 Blood Pressure 108/41 L 105/53 L Blood Pressure [Ri ght Upper Arm] Pulse Oximetry 94 93 Oxygen Delivery Me thod Nasal Cannula Oxygen Flow Rate 2 <Vianney Joyner MD - Last Filed: 07/22/24 00:36> Course Reevaluation(s) Time of Reevaluation #1: 00:32 <Vianney Joyner MD - Last Filed: 07/22/24 00:36> Reevaluation #1: Patient is requesting to go home. She will not be getting a bed until tomorrow morning at [facility]. Did her in her states that they know it will take time for discharges, she is not likely to transfer until the afternoon. She has oxygen at home, she has Lasix prescription which she actually feels she can do at home. She states her Lasix really did actually start kicking in after the 3rd dose at home, the other 2 IV doses here of helped. She understands that she is at high risk of we accumulating fluids. She states she is just miserable here, feels her congestive heart failure changes are improved but she is uncomfortable, really just wants to go home. She understands inherent risk in that there is nobody there to watch sure, she may need re-evaluation and further treatment with further diuretics. She is going to contact her physician at [facility] tomorrow and see if they can work on her situation. She understands she will be losing the bed at [facility]. We did discuss against medical advice but she understands the situation, her does and I will allow them to discharge. They assure me that they will follow up if she is worsening. <Vianney Joyner MD - Last Filed: 07/22/24 00:36> Vital Signs Vital signs: Initial Vital Signs Temperature 97.3 F L 07/21/24 11:41 Temperature Source Temporal Artery Scan 07/21/24 11:41 Pulse Rate 104 H 07/21/24 11:41 Respiratory Rate 24 07/21/24 11:41 Blood Pressure 114/61 07/21/24 11:41 Blood Pressure Mean 78 07/21/24 11:41 Blood Pressure Position Sitting 07/21/24 11:41 Pulse Oximetry 91 07/21/24 11:41 Oxygen Delivery Method Nasal Cannula 07/21/24 11:41 Oxygen Flow Rate 2 07/21/24 11:41 Vital Signs Temperature 97.3 F L 07/21/24 11:41 Pulse Rate 104 H 07/21/24 11:41 Respiratory Rate 24 07/21/24 11:41 Blood Pressure 114/61 07/21/24 11:41 Pulse Oximetry 91 07/21/24 11:41 Oxygen Delivery Method Nasal Cannula 07/21/24 11:41 Oxygen Flow Rate 2 07/21/24 11:41 Temperature 98.4 F 07/21/24 22:53 Pulse Rate 101 H 07/21/24 22:53 Respiratory Rate 20 07/21/24 22:53 Blood Pressure 105/53 L 07/21/24 22:53 Pulse Oximetry 93 07/21/24 22:53 Oxygen Delivery Method Nasal Cannula 07/21/24 22:25 Oxygen Flow Rate 2 07/21/24 22:25 <Horacio Santana DO - Last Filed: 07/21/24 20:06> Initial Vital Signs Temperature 97.3 F L 07/21/24 11:41 Temperature Source Temporal Artery Scan 07/21/24 11:41 Pulse Rate 104 H 07/21/24 11:41 Respiratory Rate 24 07/21/24 11:41 Blood Pressure 114/61 07/21/24 11:41 Blood Pressure Mean 78 07/21/24 11:41 Blood Pressure Position Sitting 07/21/24 11:41 Pulse Oximetry 91 07/21/24 11:41 Oxygen Delivery Method Nasal Cannula 07/21/24 11:41 Oxygen Flow Rate 2 07/21/24 11:41 Vital Signs Temperature 97.3 F L 07/21/24 11:41 Pulse Rate 104 H 07/21/24 11:41 Respiratory Rate 24 07/21/24 11:41 Blood Pressure 114/61 07/21/24 11:41 Pulse Oximetry 91 07/21/24 11:41 Oxygen Delivery Method Nasal Cannula 07/21/24 11:41 Oxygen Flow Rate 2 07/21/24 11:41 Temperature 98.4 F 07/21/24 22:53 Pulse Rate 101 H 07/21/24 22:53 Respiratory Rate 20 07/21/24 22:53 Blood Pressure 105/53 L 07/21/24 22:53 Pulse Oximetry 93 07/21/24 22:53 Oxygen Delivery Method Nasal Cannula 07/21/24 22:25 Oxygen Flow Rate 2 07/21/24 22:25 <Vianney Joyner MD - Last Filed: 07/22/24 00:36> Medications Administered Medications: Discontinued Medications Generic Name Dose Route Start Last Admin Trade Name Freq PRN Reason Stop Dose Admin Furosemide 80 mg 07/21/24 14:39 07/21/24 15:11 Furosemide 10 Mg/Ml Inj IVP 07/21/24 14:40 80 mg ONCE ONE Administration Furosemide 80 mg 07/21/24 19:40 07/21/24 22:05 Furosemide 10 Mg/Ml Inj IVP 07/21/24 19:41 80 mg ONCE ONE Administration Hydroxyurea 500 mg 07/21/24 19:41 07/21/24 20:09 Hydroxyurea 500 Mg Capsule PO 07/21/24 19:42 500 mg ONCE ONE Administration Lorazepam 1 mg 07/21/24 12:56 07/21/24 13:20 Lorazepam 2 Mg/Ml Inj IVP 07/21/24 12:57 1 mg ONCE ONE Administration Lorazepam 0.5 mg 07/21/24 19:40 07/21/24 20:15 Lorazepam 0.5 Mg Tablet PO 07/21/24 19:41 Not Given ONCE ONE Lorazepam 1 mg 07/21/24 20:22 07/21/24 20:26 Lorazepam 2 Mg/Ml Inj IVP 07/21/24 20:23 1 mg ONCE ONE Administration Sildenafil Citrate 20 mg 07/21/24 19:41 07/21/24 20:09 Sildenafil Citrate 20 Mg Tablet PO 07/21/24 19:42 20 mg ONCE ONE Administration <Horacio Santana, DO - Last Filed: 07/21/24 20:06> Discontinued Medications Generic Name Dose Route Start Last Admin Trade Name Freq PRN Reason Stop Dose Admin Furosemide 80 mg 07/21/24 14:39 07/21/24 15:11 Furosemide 10 Mg/Ml Inj IVP 07/21/24 14:40 80 mg ONCE ONE Administration Furosemide 80 mg 07/21/24 19:40 07/21/24 22:05 Furosemide 10 Mg/Ml Inj IVP 07/21/24 19:41 80 mg ONCE ONE Administration Hydroxyurea 500 mg 07/21/24 19:41 07/21/24 20:09 Hydroxyurea 500 Mg Capsule PO 07/21/24 19:42 500 mg ONCE ONE Administration Lorazepam 1 mg 07/21/24 12:56 07/21/24 13:20 Lorazepam 2 Mg/Ml Inj IVP 07/21/24 12:57 1 mg ONCE ONE Administration Lorazepam 0.5 mg 07/21/24 19:40 07/21/24 20:15 Lorazepam 0.5 Mg Tablet PO 07/21/24 19:41 Not Given ONCE ONE Lorazepam 1 mg 07/21/24 20:22 07/21/24 20:26 Lorazepam 2 Mg/Ml Inj IVP 07/21/24 20:23 1 mg ONCE ONE Administration Sildenafil Citrate 20 mg 07/21/24 19:41 07/21/24 20:09 Sildenafil Citrate 20 Mg Tablet PO 07/21/24 19:42 20 mg ONCE ONE Administration <Vianney Joyner MD - Last Filed: 07/22/24 00:36> Medical Decision Making [facility] Narrative Medical decision making narrative: Patient is a 54-year-old female with a complicated medical history presenting to the emergency department for worsening lower extremity edema. She has a history of heart failure and despite taking her torsemide as directed has increased edema to her lower extremities. She states it is getting so bad sometimes feels like she is getting suffocated by it. She is very anxious. Will give Ativan for anxiety. This is likely all related to her CHF. I will order CBC, CMP, urinalysis, TSH, magnesium, troponin, viral swabs along with a chest x-ray. Differential includes CHF exacerbation, hyperthyroidism, ACS, viral infection. She is not having any worsening shortness of breath compared to normal she states and PE seems unlikely. Patient's lab work returned with a white count of 37.26. This is consistent with her previous white blood cell counts in her leukemia. She also so hemoglobin 7.1. This is also consistent with her previous hemoglobins. Previous hemoglobins usually drawn prior to infusions. I did see in her paperwork from [facility] the recommend keeping her hemoglobin above 7.5. Will order a unit of irradiated packed red blood cell. CMP shows no concerning abnormalities. Liver enzymes appear to be consistent with previous findings. Does have a slightly elevated TSH with free T4 within normal limits. Urinalysis shows no signs of eat UTI. Viral swabs are negative. Chest x-ray reviewed by myself the radiologist shows some abnormality in the right lower lobe that could be pneumonia. Considering her symptoms do not seem consistent with pneumonia I will do a CT scan for better evaluation. This does show a pulmonary edema with effusion in the right lobe. This is more consistent with her presentation. BNP is 7140. Troponin within normal limits an EKG shows no concerning findings. Gave 80 of IV Lasix. As she has a rather complicated patient I believe she is too complicated for our hospital and should be seen by her bisque grader. I did speak to the [facility] on-call bisque grader. They are agreeable with the patient needing transfer due to her medical complexity. And agreement with doing 80 of IV Lasix. States if transfer is delayed to walk I can repeat the Lasix tonight. At this time patient is agreeable to this plan. While awaiting for transfer patient was getting anxious again she states she always gets very anxious at night. I gave her another dose of Ativan along with more Lasix and her home hydroxyurea and sildenafil. <Horacio Santana, - Last Filed: 07/21/24 20:06> Lab Data Labs: Lab Results 07/21/24 07/21/24 07/21/24 Range/Units 12:27 13:20 13:23 WBC 37.26 H* (4.50-11.00) K/uL Corrected WBC 20.25 H (4.50-11.00) K/UL RBC 2.43 L (4.00-5.20) m/uL Hgb 7.1 L* (12.0-16.0) gm/dL Hct 23.2 L (33.0-51.0) % MCV 96 (80-100) fL MCH 29 (26-34) pg MCHC 31 L (32-36) gm/dL RDW Coeff of Hai 20.9 H (11.5-15.5) % Plt Count 417 (140-440) K/uL Neut % (Auto) 72.0 (42.0-72.0) % Lymph % (Auto) 4.0 L (20-44) % [place] % (Auto) 13.0 H (0.0-11.0) % Eos % (Auto) 1.0 (0.0-7.0) % Baso % (Auto) 0.0 (0.0-3.0) % Neut # (Auto) 14.60 H (1.7-7.0) K/uL Lymph # (Auto) 0.80 L (0.90-2.90) K/uL [place] # (Auto) 2.60 H (0.00-0.90) K/UL Eos # (Auto) 0.20 (0.00-0.50) K/uL Baso # (Auto) 0.00 (0.00-0.30) K/uL Abs Immat Gran (auto) 2.00 H (0.00-0.30) K/uL Imm/Tot Granulo (auto) 10.0 % Diff Slide Review Acceptable Review (Acceptable) Sodium 140 (135-149) mmol/L Potassium 3.8 (3.6-5.1) mmol/L Chloride 96 (96-114) mmol/L Carbon Dioxide 38 H (20-32) mmol/L Anion Gap 6 L (7-15) mEq/L BUN 42 H (7-30) mg/dL Creatinine 1.2 (0.5-1.5) mg/dL Estimated Creat Clear 50.91 Estimated GFR 53 ml/min Glucose 104 (60-115) mg/dL Calcium 8.5 (8.4-10.6) mg/dL Magnesium 2.8 H (1.5-2.6) mg/dL Total Bilirubin 1.3 (0.1-1.5) mg/dL AST 61 H (12-35) U/L ALT 61 H (4-35) U/L Alkaline Phosphatase 255 H (40-150) U/L Troponin I 0.03 (0.01-0.04) ng/mL NT-Pro-B Natriuret Pep 7140 pg/mL Total Protein 6.2 (6.0-8.3) g/dL Albumin 3.8 (3.3-5.0) g/dL TSH 4.930 H (0.270-4.200) uIU/mL Free T4 1.32 (0.70-1.85) ng/dL Urine Color Yellow (Yellow) Urine Appearance Clear (Clear) Urine pH 7.0 (5.0-8.5) Ur Specific [place] 1.015 (1.000-1.030) Urine Protein Negative (Negative) Urine Glucose (UA) Negative (Negative) Urine Ketones Negative (Negative) Urine Blood Negative (Negative) Urine Nitrite Negative (Negative) Urine Bilirubin Negative (Negative) Urine Urobilinogen 0.2 (0.2-1.0) Ur Leukocyte Esterase Negative (Negative) Urine RBC 0-2 (0-2) Urine WBC 0-2 (0-5) Ur Squamous Epith Cells None (None-Few) Urine Bacteria None (None) SARS-CoV-2 (PCR) Negative SARS-CoV-2 (Negative) Influenza Type A (PCR) Negative PCR FLU A (Negative) Influenza Type B (PCR) Negative PCR FLU B (Negative) RSV (PCR) Negative PCR RSV (Negative) Lab Acknowledgement Blood Type A Positive Antibody Screen NEGATIVE Crossmatch (AHG) See Detail 07/21/24 Range/Units 16:02 WBC (4.50-11.00) K/uL Corrected WBC (4.50-11.00) K/UL RBC (4.00-5.20) m/uL Hgb (12.0-16.0) gm/dL Hct (33.0-51.0) % MCV (80-100) fL MCH (26-34) pg MCHC (32-36) gm/dL RDW Coeff of Hai (11.5-15.5) % Plt Count (140-440) K/uL Neut % (Auto) (42.0-72.0) % Lymph % (Auto) (20-44) % [place] % (Auto) (0.0-11.0) % Eos % (Auto) (0.0-7.0) % Baso % (Auto) (0.0-3.0) % Neut # (Auto) (1.7-7.0) K/uL Lymph # (Auto) (0.90-2.90) K/uL [place] # (Auto) (0.00-0.90) K/UL Eos # (Auto) (0.00-0.50) K/uL Baso # (Auto) (0.00-0.30) K/uL Abs Immat Gran (auto) (0.00-0.30) K/uL Imm/Tot Granulo (auto) % Diff Slide Review (Acceptable) Sodium (135-149) mmol/L Potassium (3.6-5.1) mmol/L Chloride (96-114) mmol/L Carbon Dioxide (20-32) mmol/L Anion Gap (7-15) mEq/L BUN (7-30) mg/dL Creatinine (0.5-1.5) mg/dL Estimated Creat Clear Estimated GFR ml/min Glucose (60-115) mg/dL Calcium (8.4-10.6) mg/dL Magnesium (1.5-2.6) mg/dL Total Bilirubin (0.1-1.5) mg/dL AST (12-35) U/L ALT (4-35) U/L Alkaline Phosphatase (40-150) U/L Troponin I (0.01-0.04) ng/mL NT-Pro-B Natriuret Pep pg/mL Total Protein (6.0-8.3) g/dL Albumin (3.3-5.0) g/dL TSH (0.270-4.200) uIU/mL Free T4 (0.70-1.85) ng/dL Urine Color (Yellow) Urine Appearance (Clear) Urine pH (5.0-8.5) Ur Specific [place] (1.000-1.030) Urine Protein (Negative) Urine Glucose (UA) (Negative) Urine Ketones (Negative) Urine Blood (Negative) Urine Nitrite (Negative) Urine Bilirubin (Negative) Urine Urobilinogen (0.2-1.0) Ur Leukocyte Esterase (Negative) Urine RBC (0-2) Urine WBC (0-5) Ur Squamous Epith Cells (None-Few) Urine Bacteria (None) SARS-CoV-2 (PCR) (Negative) Influenza Type A (PCR) (Negative) Influenza Type B (PCR) (Negative) RSV (PCR) (Negative) Lab Acknowledgement Test Added Blood Type Antibody Screen Crossmatch (AHG) <Horacio Santana, DO - Last Filed: 07/21/24 20:06> Lab Results 07/21/24 07/21/24 07/21/24 Range/Units 12:27 13:20 13:23 WBC 37.26 H* (4.50-11.00) K/uL Corrected WBC 20.25 H (4.50-11.00) K/UL RBC 2.43 L (4.00-5.20) m/uL Hgb 7.1 L* (12.0-16.0) gm/dL Hct 23.2 L (33.0-51.0) % MCV 96 (80-100) fL MCH 29 (26-34) pg MCHC 31 L (32-36) gm/dL RDW Coeff of Hai 20.9 H (11.5-15.5) % Plt Count 417 (140-440) K/uL Neut % (Auto) 72.0 (42.0-72.0) % Lymph % (Auto) 4.0 L (20-44) % [place] % (Auto) 13.0 H (0.0-11.0) % Eos % (Auto) 1.0 (0.0-7.0) % Baso % (Auto) 0.0 (0.0-3.0) % Neut # (Auto) 14.60 H (1.7-7.0) K/uL Lymph # (Auto) 0.80 L (0.90-2.90) K/uL [place] # (Auto) 2.60 H (0.00-0.90) K/UL Eos # (Auto) 0.20 (0.00-0.50) K/uL Baso # (Auto) 0.00 (0.00-0.30) K/uL Abs Immat Gran (auto) 2.00 H (0.00-0.30) K/uL Imm/Tot Granulo (auto) 10.0 % Diff Slide Review Acceptable Review (Acceptable) Sodium 140 (135-149) mmol/L Potassium 3.8 (3.6-5.1) mmol/L Chloride 96 (96-114) mmol/L Carbon Dioxide 38 H (20-32) mmol/L Anion Gap 6 L (7-15) mEq/L BUN 42 H (7-30) mg/dL Creatinine 1.2 (0.5-1.5) mg/dL Estimated Creat Clear 50.91 Estimated GFR 53 ml/min Glucose 104 (60-115) mg/dL Calcium 8.5 (8.4-10.6) mg/dL Magnesium 2.8 H (1.5-2.6) mg/dL Total Bilirubin 1.3 (0.1-1.5) mg/dL AST 61 H (12-35) U/L ALT 61 H (4-35) U/L Alkaline Phosphatase 255 H (40-150) U/L Troponin I 0.03 (0.01-0.04) ng/mL NT-Pro-B Natriuret Pep 7140 pg/mL Total Protein 6.2 (6.0-8.3) g/dL Albumin 3.8 (3.3-5.0) g/dL TSH 4.930 H (0.270-4.200) uIU/mL Free T4 1.32 (0.70-1.85) ng/dL Urine Color Yellow (Yellow) Urine Appearance Clear (Clear) Urine pH 7.0 (5.0-8.5) Ur Specific [place] 1.015 (1.000-1.030) Urine Protein Negative (Negative) Urine Glucose (UA) Negative (Negative) Urine Ketones Negative (Negative) Urine Blood Negative (Negative) Urine Nitrite Negative (Negative) Urine Bilirubin Negative (Negative) Urine Urobilinogen 0.2 (0.2-1.0) Ur Leukocyte Esterase Negative (Negative) Urine RBC 0-2 (0-2) Urine WBC 0-2 (0-5) Ur Squamous Epith Cells None (None-Few) Urine Bacteria None (None) SARS-CoV-2 (PCR) Negative SARS-CoV-2 (Negative) Influenza Type A (PCR) Negative PCR FLU A (Negative) Influenza Type B (PCR) Negative PCR FLU B (Negative) RSV (PCR) Negative PCR RSV (Negative) Lab Acknowledgement Blood Type A Positive Antibody Screen NEGATIVE Crossmatch (AHG) See Detail 07/21/24 Range/Units 16:02 WBC (4.50-11.00) K/uL Corrected WBC (4.50-11.00) K/UL RBC (4.00-5.20) m/uL Hgb (12.0-16.0) gm/dL Hct (33.0-51.0) % MCV (80-100) fL MCH (26-34) pg MCHC (32-36) gm/dL RDW Coeff of Hai (11.5-15.5) % Plt Count (140-440) K/uL Neut % (Auto) (42.0-72.0) % Lymph % (Auto) (20-44) % [place] % (Auto) (0.0-11.0) % Eos % (Auto) (0.0-7.0) % Baso % (Auto) (0.0-3.0) % Neut # (Auto) (1.7-7.0) K/uL Lymph # (Auto) (0.90-2.90) K/uL [place] # (Auto) (0.00-0.90) K/UL Eos # (Auto) (0.00-0.50) K/uL Baso # (Auto) (0.00-0.30) K/uL Abs Immat Gran (auto) (0.00-0.30) K/uL Imm/Tot Granulo (auto) % Diff Slide Review (Acceptable) Sodium (135-149) mmol/L Potassium (3.6-5.1) mmol/L Chloride (96-114) mmol/L Carbon Dioxide (20-32) mmol/L Anion Gap (7-15) mEq/L BUN (7-30) mg/dL Creatinine (0.5-1.5) mg/dL Estimated Creat Clear Estimated GFR ml/min Glucose (60-115) mg/dL Calcium (8.4-10.6) mg/dL Magnesium (1.5-2.6) mg/dL Total Bilirubin (0.1-1.5) mg/dL AST (12-35) U/L ALT (4-35) U/L Alkaline Phosphatase (40-150) U/L Troponin I (0.01-0.04) ng/mL NT-Pro-B Natriuret Pep pg/mL Total Protein (6.0-8.3) g/dL Albumin (3.3-5.0) g/dL TSH (0.270-4.200) uIU/mL Free T4 (0.70-1.85) ng/dL Urine Color (Yellow) Urine Appearance (Clear) Urine pH (5.0-8.5) Ur Specific [place] (1.000-1.030) Urine Protein (Negative) Urine Glucose (UA) (Negative) Urine Ketones (Negative) Urine Blood (Negative) Urine Nitrite (Negative) Urine Bilirubin (Negative) Urine Urobilinogen (0.2-1.0) Ur Leukocyte Esterase (Negative) Urine RBC (0-2) Urine WBC (0-5) Ur Squamous Epith Cells (None-Few) Urine Bacteria (None) SARS-CoV-2 (PCR) (Negative) Influenza Type A (PCR) (Negative) Influenza Type B (PCR) (Negative) RSV (PCR) (Negative) Lab Acknowledgement Test Added Blood Type Antibody Screen Crossmatch (AHG) <Vianney Joyner MD - Last Filed: 07/22/24 00:36> Imaging Data Chest x-ray: Attestation: I have reviewed the pertinent imaging results. <Horacio Santana DO - Last Filed: 07/21/24 20:06> Radiologist's impression: Findings suspicious for right lower lobe pneumonia in the appropriate clinical setting. Dictated by Danielito Lopez MD @ 07/21/2024 1:29:09 PM <Horacio Santana DO - Last Filed: 07/21/24 20:06> CT scan - chest: Attestation: I have reviewed the pertinent imaging results. <Horacio Santana DO - Last Filed: 07/21/24 20:06> Radiologist's impression: 1. Pulmonary edema pattern from congestive heart failure with a right pleural effusion and right basilar atelectasis. 2. Mildly enlarged central pulmonary arteries, stable could suggest underlying pulmonary hypertension. 3. Incidental exophytic soft tissue mass from the posterior gastric fundus. A GI stromal tumor could be considered. Suggest GI consultation. Consider follow-up CT scan of the abdomen multiphasic IV contrast. Please note that all CT scans at this facility use dose modulation, iterative reconstruction, and/or weight-based dosing when appropriate to reduce radiation dose to as low as reasonably achievable. Dictated by Gus Cleaning MD @ 07/21/2024 2:31:19 PM <Horacio Santana DO - Last Filed: 07/21/24 20:06> ECG Data Attestation: I personally reviewed and interpreted this ECG as follows: <Horacio Santana DO - Last Filed: 07/21/24 20:06> Prior ECG tracings: available for review <Horacio Santana DO - Last Filed: 07/21/24 20:06> Interpretation: Sinus rhythm with a rate of 78 beats per minute, normal intervals, normal axis, no ST or T-wave abnormalities. Of note this quite a bit of artifact on the EKG as the patient was very anxious and difficult to get her to sit still <Horacio Santana DO - Last Filed: 07/21/24 20:06> Discharge Plan Discharge Clinical Impression: Pulmonary hypertension Right-sided heart failure Qualifiers: Heart failure chronicity: acute on chronic Qualified Code(s): I50.813 - Acute on chronic right heart failure <Horacio Santana DO - Last Filed: 07/21/24 20:06> Patient Disposition: Home, Self-Care <Horacio Santana DO - Last Filed: 07/21/24 20:06> Condition: Stable <Horacio Santana DO - Last Filed: 07/21/24 20:06> Instructions: Heart Failure (ED) <Horacio Santana DO - Last Filed: 07/21/24 20:06> Additional Instructions: Continue with oxygen in medications at home. It is important that you contact your physician at [facility] tomorrow. If you have fluid starting to redevelop, feel you are worsening, you will need to seek re-evaluation. <Horacio Santana DO - Last Filed: 07/21/24 20:06> Activity Level: Activity as Tolerated <Horacio Santana DO - Last Filed: 07/21/24 20:06> Activity as Tolerated <Vianney Joyner MD - Last Filed: 07/22/24 00:36> Prescriptions: No Action hydroxyurea [Hydrea] 500 mg capsule 500 mg PO BID polyethylene glycol 3350 [Miralax] 17 gram/dose powder 17 g PO BID PRN (Reason: constipation) Patient Comments: once in a great while omeprazole 20 mg capsule,delayed release(DR/EC) 20 mg PO QDAY Qty: 30 0RF cannabis PO Tylenol PM Extra Strength 25-500 mg tablet 1 tab PO QHS PRN sildenafil (pulm.hypertension) 20 mg tablet 20 mg PO TID sennosides [senna] 8.6 mg tablet See Rx Instructions .ROUTE .COMPLEX PRN (Reason: constipation) Rx Instructions: TAKE 1 TABLET BY MOUTH TWICE DAILY PRN; torsemide 20 mg tablet 60 mg PO BID Rx Instructions: Appt needed prior to next refill. allopurinol 300 mg tablet 300 mg PO QDAY Patient Comments: TAKE 1 TABLET BY MOUTH DAILY acetaminophen 500 mg capsule 500 - 1,000 mg PO Q6H PRN Rx Instructions: Max of 4000mg in 24 hours [place] Heartburn 1,650-1,000 mg tablet, effervescent 1 tab PO PRN Rx Instructions: dissolved in 4 ounces of water oxycodone 5 mg capsule 5 mg PO Q8H PRN (Reason: pain) Qty: 60 0RF morphine 30 mg tablet extended release 30 mg PO Q12H Qty: 60 0RF Rx Instructions: total 45 mg twice daily morphine 15 mg tablet extended release 15 mg PO Q12H Qty: 60 0RF <Horacio Santana DO - Last Filed: 07/21/24 20:06> Follow Up/Referrals: Meli Hernandez MD [Primary Care Provider] - <Horacio Santana DO - Last Filed: 07/21/24 20:06> Stand Alone Forms: [facility] Info Instructions <Horacio Santana DO - Last Filed: 07/21/24 20:06>
[2024-07-21] MEDS: LORazepam 2 MG/ML inj 1 MG IVP ×2 (13:20→20:26)
[2024-07-21 13:51] LABS: Hematocrit 23.2 % (33.0-51.0); Hemoglobin* 7.1 gm/dL (12.0-16.0); Mean Corpuscular HGB Conc 31 gm/dL (32-36); Mean Corpuscular Hemoglobin 29 pg (26-34); Mean Corpuscular Volume 96 fL (80-100); Platelet Count* 417 K/uL (140-440); RDW Coefficient of Variation % 20.9 % (11.5-15.5)
[2024-07-21 13:54] LABS: Albumin* 3.8 g/dL (3.3-5.0); Chloride* 96 mmol/L (96-114); Sodium* 140 mmol/L (135-149)
[2024-07-21 13:55] LABS: Potassium* 3.8 mmol/L (3.6-5.1)
[2024-07-21 13:57] LABS: Alanine Aminotransferase* 61 U/L (4-35); Alkaline Phosphatase* 255 U/L (40-150); Aspartate Amino Transferase* 61 U/L (12-35); Bilirubin Total* 1.3 mg/dL (0.1-1.5); Blood Urea Nitrogen* 42 mg/dL (7-30); Calcium* 8.5 mg/dL (8.4-10.6); Creatinine* 1.2 mg/dL (0.5-1.5); Est. Creatinine Clearance* 50.91; Estimated Glomerular Filt Rate 53 ml/min; Glucose* 104 mg/dL (60-115); Magnesium* 2.8 mg/dL (1.5-2.6); Total Protein* 6.2 g/dL (6.0-8.3)
--- NOTE | 2024-07-21 14:01 | CRLHL7_ITS ---
For Patients: As a result of the Century Cures Act, medical imaging exams and procedure reports are released immediately into your electronic medical record. You may view this report before your referring provider. If you have questions, please contact your health care provider. INDICATION : Short of breath congestive heart failure TECHNIQUE : CT scan of the chest performed without contrast COMPARISON : CT scan of the chest May 02, 2022 FINDINGS : Heart/mediastinum: Mildly enlarged central pulmonary arteries with no adenopathy or pericardial effusion. Aorta is normal caliber. Normal heart size. Lungs and pleura: Mild ground-glass opacity in the upper lobes with mosaic attenuation. Mid and lower lung zone mild septal edema pattern. Moderate right pleural effusion and compressive atelectasis right lower lobe. Linear subsegmental atelectasis lingula and left lower lobe. No suspicious nodules. Upper abdomen: Exophytic soft tissue mass from the posterior gastric fundus 3.3 x 5.0 centimeters well-circumscribed margins. Markedly increased in size or new since prior exam. Small amount of ascites around the liver. Skeletal: No suspicious abnormality. Disc degeneration. IMPRESSION: 1. Pulmonary edema pattern from congestive heart failure with a right pleural effusion and right basilar atelectasis. 2. Mildly enlarged central pulmonary arteries, stable could suggest underlying pulmonary hypertension. 3. Incidental exophytic soft tissue mass from the posterior gastric fundus. A GI stromal tumor could be considered. Suggest GI consultation. Consider follow-up CT scan of the abdomen multiphasic IV contrast. Please note that all CT scans at this facility use dose modulation, iterative reconstruction, and/or weight-based dosing when appropriate to reduce radiation dose to as low as reasonably achievable. Dictated by Gus Cleaning MD @ 07/21/2024 2:31:19 PM (Electronically Signed)
[2024-07-21 14:04] LABS: Anion Gap 6 mEq/L (7-15); Carbon Dioxide* 38 mmol/L (20-32)
[2024-07-21 14:10] LABS: Troponin I* 0.03 ng/mL (0.01-0.04)
[2024-07-21 14:15] LABS: Corrected White Blood Count 20.25 K/UL (4.50-11.00); Red Blood Count 2.43 m/uL (4.00-5.20); Slide Review Reflex Yes
[2024-07-21 14:18] LABS: PCR FLU A Negative PCR FLU A (Negative); PCR FLU B Negative PCR FLU B (Negative); PCR RSV Negative PCR RSV (Negative); SARS PCR* Negative SARS-CoV-2 (Negative)
[2024-07-21 14:18] LABS: White Blood Count* 37.26 K/uL (4.50-11.00)
[2024-07-21 14:19] LABS: Slide Review Acceptable Review (Acceptable)
[2024-07-21 15:03] LABS: Free T4 Free Thyroxine* 1.32 ng/dL (0.70-1.85)
--- NOTE | 2024-07-21 15:03 | ED.NURSE ---
Patient took 30mg MSCtessie. Arun'd per Dr. Santana to take home dose.
[2024-07-21] MEDS: FUROSEMIDE 10 MG/ML inj 80 MG IVP ×2 (15:11→22:05)
[2024-07-21 16:28] LABS: NT Pro B Type NatriureticPept* 7140 pg/mL
[2024-07-21] MEDS: HYDROXYUREA 500 MG CAPSULE PO (20:09)
[2024-07-21] MEDS: SILDENAFIL CITRATE 20 MG TABLET PO (20:09)
[2024-07-22] VITALS: PULSE 92; O2SAT 93
[2024-07-22 00:15] VITALS: PULSE 94; O2SAT 94
[2024-07-22 00:30] VITALS: PULSE 95; O2SAT 92
== END 2024-07-22 00:47 | disposition home or self-care (01) ==
PROVIDERS: Student in an Organized Health Care Education/Training Program; Emergency Provider Family Medicine; PCP Internal Medicine
DX: I27.0 Primary pulmonary hypertension (principal); I50.813 Acute on chronic right heart failure
CPT/HCPCS: 36415; 36430; 71046; 71250; 80053; 81001; 83735; 83880; 84439; 84443; 84484; 85025; 86850; 86900; 86901; 86922; 87631; 93005; 96374; 96375; 96376; 99285; J1940; J2060; P9016; S0176

== ENCOUNTER 2024-08-19 12:35 | Emergency (ER) | payer MEDICARE, MEDICAID, SELFPAY ==
[2024-08-19 12:42] VITALS: BP 112/66; PULSE 83; RESP 18; TEMP 36.4; O2SAT 98; BMI 39.4
--- NOTE | 2024-08-19 13:18 | ED.ANXIETY ---
HPI - Anxiety General Date Seen: 08/19/24 Chief Complaint: Anxiety Stated Complaint: Panic Attack Time Seen by Provider: 08/19/24 12:40 Source: patient and family Mode of arrival: ambulatory Limitations: no limitations History of Present Illness HPI narrative: Patient is a very nice 54-year-old female who suffers from anxiety, and panic attacks, as she has had then increase in these after she was hospitalized at [place], they put her on Zoloft there and not surprisingly this helped her panic attacks, but then she came home and her prescription provider would not continue the Zoloft. She describes some dose of Zoloft were she was taking 3-4 tablets a day and then titrating down, I am not familiar with this protocol at all, for prescription provider was okay with continuing Zoloft but only at once per day. Since the panic attacks are coming on more frequently, at least twice a day with crying, and labile emotional state, she called her primary care physician who directed her to the ER. She tells me she has not suicidal or homicidal, she does not drink alcohol, she does have chronic conditions include right heart failure, of which she had to be diuresed for approximately 50 lb here recently. She also has a history of myelodysplasia and requires she is in a blood transfusions and just received 1 yesterday overall from a medical status she feels great at the present time. She was on Ativan in the past but this did not help she is not currently doing any counseling MD complaint: anxiety Quality: intermittent and worsening Place: work History of similar episodes: Yes Provoking factors: none known Relieving factors: medication Related Data Home Medications ?Medication ?Instructions ?Recorded ?Confirmed acetaminophen 500 mg capsule 500 - 1,000 mg PO Q6H PRN 01/02/22 08/19/24 allopurinol 300 mg tablet 300 mg PO QDAY 01/02/22 08/19/24 sodium bicarbonate 1,650 mg-citric 1 tab PO PRN 01/17/22 03/19/24 acid 1,000 mg effervescent tablet ([place] Heartburn) hydroxyurea 500 mg capsule (Hydrea) 500 mg PO BID 05/07/22 08/19/24 polyethylene glycol 3350 17 17 g PO BID PRN constipation 05/07/22 03/19/24 gram/dose oral powder (Miralax) cannabis PO 05/21/22 02/05/24 sildenafil (pulm.hypertension) 20 20 mg PO TID 09/23/23 08/19/24 mg tablet diphenhydramine 25 1 tab PO QHS PRN 11/18/23 07/21/24 mg-acetaminophen 500 mg tablet (Tylenol PM Extra Strength) sennosides 8.6 mg tablet (senna) See Rx Instructions .Route 12/12/23 08/19/24 .COMPLEX PRN constipation torsemide 20 mg tablet 60 mg PO BID 03/19/24 08/19/24 sertraline 25 mg tablet mg 08/19/24 Previous Rx's ?Medication ?Instructions ?Recorded omeprazole 20 mg capsule,delayed 20 mg PO QDAY #30 caps 11/11/23 release morphine 15 mg tablet,extended 15 mg PO Q12H pain #60 tabs 07/22/24 release oxycodone 5 mg capsule 5 mg PO Q8H PRN pain #60 caplets 07/26/24 morphine 30 mg tablet,extended 30 mg PO Q12H #60 tabs 08/03/24 release clonazepam 0.5 mg tablet 0.5 mg PO BID #10 tabs 08/19/24 Allergies Allergy/AdvReac Type Severity Reaction Status Date / Time No Known Drug Allergies Allergy Verified 08/19/24 12:49 Review of Systems Status of ROS: Reports: 10 or more systems reviewed and unremarkable except as noted in History and below [facility] Surgical History History of tonsillectomy and adenoidectomy ?Z90.89 - Acquired absence of other organs (ICD-10) 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) ?Z90.81 - Acquired absence of spleen (ICD-10) Family History Sister Colitis Mother Colon cancer Diabetes Stroke Father Coronary artery disease Social History Narrative: Lives with spouse and supportive caregiver Gian. Denies alcohol use, or other substances. Previously smoked cannabis, now using medical marijuana per dispensary. What is your current living situation?: I presently have a place to live Problems where you live: no known problems In the past 12 months, utilities in danger of being shut off: no In past 12 months, lack of transportation kept you from medical appts, meetings, work, or getting things needed for daily living: no In the past 12 mos, have been you worried that your food would run out before you had money to buy more?: never true In the past 12 mos, the food you bought just didn't last and you didn't have money to buy more?: never true Smoking Status: Former smoker Do you use any of these nicotine containing products: None Second hand tobacco smoke exposure: No How often do you have a drink containing alcohol: never How often do you have six or more drinks on one occasion: Never AUDIT-C Alcohol total score: 0 Non-prescribed substance use: denies use How often does anyone, including family, friends and others, physically hurt you: never How often does anyone, including family, friends and others, insult or talk down to you: never How often does anyone, including family, friends and others, threaten you with harm: never How often does anyone, including family, friends and others, scream or curse at you: never service: No Exam Narrative: Exam Narrative: On examination in room 1 she is in no apparent distress she is entirely normal vital signs are pupils equal round reactive to light there is no scleral icterus redness TMs are normal oropharynx normal there is no adenopathy anterior posterior chains her chest is clear bilaterally with no wheezing crackles noted her heart sounds are normal her abdomen is soft there is no guarding no organomegaly noted. She moves all extremities independently and well. There is no pressured speech, she was a little labile with crying for me in the room but did see hope in the future. She reiterated that she is not suicidal or homicidal. I do not detect any history of drug or alcohol abuse. Const: Vital Signs, click to edit/add: Vital Signs - 24 hr 08/19/24 12:42 Temperature 97.5 F L Pulse Rate [Left P ulse Oximeter] 83 Respiratory Rate 18 Blood Pressure [Le ft Upper Arm] 112/66 Pulse Oximetry 98 Oxygen Delivery Me thod Room Air Documenting provider has reviewed patient's vital signs: yes Course Vital Signs Vital signs: Initial Vital Signs Temperature 97.5 F L 08/19/24 12:42 Temperature Source Temporal Artery Scan 08/19/24 12:42 Pulse Rate 83 08/19/24 12:42 Pulse Rhythm Regular 08/19/24 12:42 Respiratory Rate 18 08/19/24 12:42 Blood Pressure 112/66 08/19/24 12:42 Blood Pressure Mean 81 08/19/24 12:42 Blood Pressure Position Sitting 08/19/24 12:42 Pulse Oximetry 98 08/19/24 12:42 Oxygen Delivery Method Room Air 08/19/24 12:42 Vital Signs Temperature 97.5 F L 08/19/24 12:42 Pulse Rate 83 08/19/24 12:42 Respiratory Rate 18 08/19/24 12:42 Blood Pressure 112/66 08/19/24 12:42 Pulse Oximetry 98 08/19/24 12:42 Oxygen Delivery Method Room Air 08/19/24 12:42 Temperature 97.5 F L 08/19/24 12:42 Pulse Rate 83 08/19/24 12:42 Respiratory Rate 18 08/19/24 12:42 Blood Pressure 112/66 08/19/24 12:42 Pulse Oximetry 98 08/19/24 12:42 Oxygen Delivery Method Room Air 08/19/24 12:42 MDM - Anxiety MDM Narrative Medical decision making narrative: Differential diagnosis of the patient's acute psychosis is mental illness in the form of schizophrenia, bipolar disorder, metabolic derangement such as hyper/hypoglycemia or hypo/hyper natremia, 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 Several items in the differential diagnosis have the potential to be life-threatening such as liver failure, hypo and hypernatremia. 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 After discussion with the patient, we will try some clonazepam, and then follow up if she has an appointment with her primary care physician on the 23 of August, for more medication management consideration of some sort of therapy also. Would be helpful, return as needed Differential Diagnosis Differential diagnosis: Likely hyperventilation, panic disorder and acute anxiety Medical Records Attestation: I reviewed the patient's medical records. Discharge Plan Discharge Clinical Impression: Acute anxiety, Panic disorder Patient Disposition: Home w/ Parent or Adult Condition: Stable Instructions: Panic Disorder (ED), Cognitive Behavioral Therapy (ED), Anxiety (ED), Panic Attack (ED) Additional Instructions: Hearing home rest, we talked about use of medication we will try the clonazepam twice daily I will give her 10 tablets was will take her to her appointment with her primary care physician, we went over the risks of this including sedation, and interaction with the morphine, she has tolerated Ativan in the past which I think would be reasonable portion of with the clonazepam. She return as needed if she becomes suicidal or homicidal. Activity Level: Light activity Prescriptions: New clonazepam 0.5 mg tablet 0.5 mg PO BID Qty: 10 0RF No Action hydroxyurea [Hydrea] 500 mg capsule 500 mg PO BID polyethylene glycol 3350 [Miralax] 17 gram/dose powder 17 g PO BID PRN (Reason: constipation) Patient Comments: once in a great while omeprazole 20 mg capsule,delayed release(DR/EC) 20 mg PO QDAY Qty: 30 0RF morphine 15 mg tablet extended release 15 mg PO Q12H Qty: 60 0RF oxycodone 5 mg capsule 5 mg PO Q8H PRN (Reason: pain) Qty: 60 0RF cannabis PO Tylenol PM Extra Strength 25-500 mg tablet 1 tab PO QHS PRN sildenafil (pulm.hypertension) 20 mg tablet 20 mg PO TID sennosides [senna] 8.6 mg tablet See Rx Instructions .ROUTE .COMPLEX PRN (Reason: constipation) Rx Instructions: TAKE 1 TABLET BY MOUTH TWICE DAILY PRN; torsemide 20 mg tablet 60 mg PO BID Rx Instructions: Appt needed prior to next refill. allopurinol 300 mg tablet 300 mg PO QDAY Patient Comments: TAKE 1 TABLET BY MOUTH DAILY acetaminophen 500 mg capsule 500 - 1,000 mg PO Q6H PRN Rx Instructions: Max of 4000mg in 24 hours [place] Heartburn 1,650-1,000 mg tablet, effervescent 1 tab PO PRN Rx Instructions: dissolved in 4 ounces of water sertraline 25 mg tablet Patient Comments: [NO ORIGINAL SIG] morphine 30 mg tablet extended release 30 mg PO Q12H Qty: 60 0RF Rx Instructions: total 45 mg twice daily Follow Up/Referrals: Meli Hernandez MD [Primary Care Provider] - Stand Alone [facility]
--- OUTSIDE RECORDS SUMMARY | 2024-08-19 13:29 | XMS_ITS | Clinical Summary ---
Author Organization [facility] Address [address] [place] [address] Care Team Providers Care Rectification Printer Name Role Phone No Ref-Primary, Physician Primary [...] for mild pain (headaches) Active Sodium Bicarbonate-Cit deiv Acid (VASYL-SELTZER HEARTBURN PO) Take 1 tablet by mouth Active sodium-potassiu m bicarbonate-cit devi acid (VASYL-SELTZER GOLD) [id number] MG TBEF solu-tab Take 1 tablet by [...] on file Legal Sex Female 4:16 AM ENTRY LEVEL MARKETING ASSISTANT Gender Identity Not on file Sexual Orientation Not on file Last Filed Vital Signs Vital Sign Reading Time Taken Comments Blood Pressure 118/72 05/29/2020 2:20 PM ENTRY LEVEL MARKETING ASSISTANT Pulse 63 05/29/2020 2:20 PM ENTRY LEVEL MARKETING ASSISTANT Temperature 36.4 C (97.6 F) 05/29/2020 2:20 PM ENTRY LEVEL MARKETING ASSISTANT Respiratory Rate 16 05/29/2020 2:20 PM ENTRY LEVEL MARKETING ASSISTANT Oxygen Saturation 98% 05/29/2020 1:09 PM ENTRY LEVEL MARKETING ASSISTANT Inhaled Oxygen Concentration - - Weight 92.5 kg (203 lb 14.4 oz) 07/29/2019 9:51 AM ENTRY LEVEL MARKETING ASSISTANT Height 169.5 cm (5' 6.75) 07/29/2019 9:51 AM CS T Body Mass Index 32.17 07/29/2019 9:51 AM ENTRY LEVEL MARKETING ASSISTANT Plan of Treatment Not on file Care Teams Rectification Printer Relationship Specialty Start Date End Date No Ref-Primary, Physician PCP - General 09/30/17 Candida Epps MD Internal Medicine 01/15/19
--- OUTSIDE RECORDS SUMMARY | 2024-08-19 13:29 | XMS_ITS | Clinical Summary ---
Author Organization [facility] Address [place], [place] [address] Care Team Providers Care Prize Coordinator Name Role Phone None Primary Care Provider [...] on file Legal Sex Female 6:49 AM ENTERPRISE RESOURCE PLANNER Gender Identity Not on file Sexual Orientation Not on file Obstetrics History Last Filed Vital Signs Vital Sign Reading Time Taken Comments Blood Pressure 113/66 05/24/2021 1:18 PM ENTERPRISE RESOURCE PLANNER Pulse 111 05/24/2021 1:18 PM ENTERPRISE RESOURCE PLANNER Temperature 36.2 C (97.1 F) 05/24/2021 1:18 PM ENTERPRISE RESOURCE PLANNER Respiratory Rate 20 05/24/2021 1:18 PM ENTERPRISE RESOURCE PLANNER Oxygen Saturation 94% 05/24/2021 11:07 AM ENTERPRISE RESOURCE PLANNER Inhaled Oxygen Concentration - - Weight 92.1 [...] 03/14/2024 Insurance MEDICARE PART B HB ONLY [facility] MEDICARE PB ONLY Care Teams Prize Coordinator Relationship Specialty Start Date End Date None . PCP - General 10/03/20
--- OUTSIDE RECORDS SUMMARY | 2024-08-19 13:29 | XMS_ITS | Encounter Summary ---
Author Organization [facility] Address [address] [place] [address] Care Team Providers Care Machinist Wood Name Role Phone Ab Patterson MD Primary Care Provider +1- [phone] Encounter Details Date Type Department Care Team [...] on filedocumented in this encounter Care Teams Machinist Wood Relationship Specialty [place] [address] [place] [address] PCP - General Family Practice 11/30/15 documented as of this encounter
--- OUTSIDE RECORDS SUMMARY | 2024-08-19 13:29 | XMS_ITS | Encounter Summary ---
Author Organization [facility] Address [address] [place] [address] Care Team Providers Care Bar Pointer Name Role Phone No Ref-Primary, Physician Primary Care Provider Candida Epps MD Unavailable Shala Bell RN Unavailable Unavailable Ronaldo jones MD Unavailable [phone] Candida Epps MD Unavailable Boaz Garcia MD Unavailable [phone] Rodrick Turner MD Unavailable Reason for Visit * Reason Onset Date Comments Appointment 07/02/2019 Encounter Details Date Type Department Care Team (Late st Contact Info) Description 07/02/[address] [address] Barbara Caballero MD [address] [place] [address] Appointment Social History Tobacco Use Types [...] on file Legal Sex Female 4:16 AM VP SOFTWARE SUPPORT Gender Identity Not on file Sexual Orientation Not on file documented as of this encounter Miscellaneous Notes * Telephone Encounter - Winter Perera - 07/02/2019 10:57 AM CST Reason for call: Other Patient called regarding (reason for call): appointment Additional comments: per Zeinab from [facility] , the patient needs to be seen sooner because the 'cardiac workup was expedited and the patient needs the test before being cleared for surgery. Roxane has faxed over notes in regards to the patient. Phone number to reach patient: Home number on file [phone] (home) Best Time: anytime Can we leave a detailed message on this number? YES SOFTWARE SUPPORT documented in this encounter Plan of Treatment Not on file documented as of this encounter Visit Diagnoses Not on filedocumented in this encounter Care Teams Bar Pointer Relationship Specialty Start Date End Date No Ref-Primary, Physician PCP - General 09/30/17 Candida Epps MD Internal Medicine 01/15/19 Shala Bell, HELENE Specialty Facilities Flight Check Pilot Hematology & Oncology 01/15/19 07/23/21 Ronaldo Cheatham MD [address] [facility] [address] [place], [place] [address] Assigned Heart and Vascular Provider 05/05/20 09/09/[address] [facility] [address] [place] [address] Assigned Cancer Care Provider 05/05/20 07/22/20 Boaz Garcia MD [address] [facility] [address] [place] [address] Assigned Surgical Provider 05/05/20 01/25/21 Rodrick Turner MD [address] [facility] [address] [place] [address] Assigned Sleep Provider 05/05/20 documented as of this encounter
--- OUTSIDE RECORDS SUMMARY | 2024-08-19 13:29 | XMS_ITS | Encounter Summary ---
Author Organization [facility] Address [address] [place] [address] Care Team Providers Care Wax Coating Machine Tender Name Role Phone No Ref-Primary, Physician Primary Care Provider Candida Epps MD Unavailable Shala Bell RN Unavailable Unavailable Ronaldo Cheatham MD Unavailable [phone] Candida Epps MD Unavailable Boaz Garcia MD Unavailable [phone] Rodrick Turner MD Unavailable Reason for Visit * Reason Onset Date Comments Appointment 12/16/2018 Encounter Details Date Type Department Care Team (Late st Contact Info) Description 12/16/2018 Telephone [facility] [address] [place] [address] Edin Hu MD [facility] [address] [place] [address] Appointment Social History Tobacco Use Types [...] on file 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 Gender Identity Not on file Sexual Orientation Not on file documented as of this encounter Miscellaneous Notes * Telephone Encounter - Amee Davidson - 12/16/2018 8:28 AM CDT lvm documented in this encounter Plan of Treatment Not on file documented as of this encounter Visit Diagnoses Not on filedocumented in this encounter Care Teams Wax Coating Machine Tender Relationship Specialty Start Date End Date No Ref-Primary, Physician PCP - General 09/30/17 Candida Epps MD Internal Medicine 01/15/19 Shala Bell, HELENE Specialty Ent Consultant Hematology & Oncology 01/15/19 07/23/21 Ronaldo Cheatham MD [address] [facility] [address] [place], [place] [address] Assigned Heart and Vascular Provider 05/05/20 09/09/20 Candida Epps MD [facility] [address] [place] [address] Assigned Cancer Care Provider 05/05/20 07/22/20 Boaz Garcia MD [address] [facility] [address] [place], [place] [address] Assigned Surgical Provider 05/05/20 01/25/21 Rodrick Turner MD [address] [facility] [address] [place], [place] [address] Assigned Sleep Provider 05/05/20 documented as of this encounter
--- OUTSIDE RECORDS SUMMARY | 2024-08-19 13:29 | XMS_ITS | Encounter Summary ---
Author Organization [facility] Address [address] [place] [address] Care Team Providers Care Felt Pad Cutter Name Role Phone Ab Patterson MD Primary Care Provider [phone]- [phone] Encounter Details Date Type Department Care Team (Late st Contact Info) Description 05/10/2016 Scanned History External to Transferred Record, Provider [facility] Social History Tobacco Use Types Packs/Day Years Used Date Smoking Tobacco: Never Assessed Sex and Gender Information Value Date Recorded Sex Assigned at Not on file Gender Identity Not on file Sexual Orientation Not on file documented as of this encounter Plan of Treatment Not on file documented as of this encounter Visit Diagnoses Not on filedocumented in this encounter Care Teams Felt Pad Cutter Relationship Specialty [place] [address] [place] [address] PCP - General Family Practice 11/30/15 documented as of this encounter
--- OUTSIDE RECORDS SUMMARY | 2024-08-19 13:30 | XMS_ITS | Clinical Summary ---
Author Organization [facility] Address [address] [place] [address] Care Team Providers Care School Bus Attendant Name Role Phone Ab Patterson MD Primary Care Provider +1- [phone] Source Comments You are receiving this document [...] for each transition of care or referral. [facility] Allergies Active Allergy Reactions Criticality Noted [...] and spleen managed by Dr Delgadillo of [place] pain Plantar fasciitis 12/01/2015 Immunizations Name Administration [...] (04/11/2016 2:10 PM CDT) Cytology, Pap (NOTE) Inspector Air Carrier Cytology Report Patient Name: JENNIFER MENDEZ Taken: [...] Menopausal Microscopic Description Microscopic examination is performed. [facility] Department of Pathology [address] [place] [address] [facility] 04/11/2016 2:10 PM CDT 04/12/2016 7:17 AM CDT Kari Dixon MD LAB_1 [facility] [phone] * CHOLESTEROL, TOTAL AND HDL (02/22/1998 11:50 AM CDT) Cholesterol 160 <200 mg/dl [facility] HDL 43 >35 mg/dl [facility] 02/22/1998 11:5 0 AM CDT 02/22/1998 11:51 AM CDT Radha Tovar APRN, CNP LAB_1 Performing Organization Address [facility] Co de Phone Number [facility] [address] [address] * HIV 1/2 ANTIBODY (02/22/1998 11:50 AM CDT) HIV 1/2 Antibody Non-Reacti ve [facility] 02/22/1998 11:5 0 AM CDT 02/22/1998 11:51 AM CDT Radha Tovar APRN, CNP LAB_1 Performing Organization Address [facility] Co de Phone Number [facility] [address] [address] from Last 3 Months or Most Recently Relevant to Health Maintenance Care Teams School Bus Attendant Relationship Specialty [place] [address] [place] [address] PCP - General Family Practice 11/30/15
== END 2024-08-19 13:31 | disposition home or self-care (01) ==
LOC: ED 13:27
PROVIDERS: Emergency Provider Family Medicine; PCP Internal Medicine
DX: F41.0 Panic disorder [episodic paroxysmal anxiety] (principal)
CPT/HCPCS: 99284

== ENCOUNTER 2024-09-01 12:30 | Outpatient (RCR) | payer MEDICARE, MEDICAID, SELFPAY ==
[2024-03-04 09:55] LABS: Basophils Percent Auto 6.9 % (0.0-3.0); Eosinophils Percent Auto 0.2 % (0.0-7.0); Hematocrit 27.8 % (33.0-51.0); Hemoglobin* 8.4 gm/dL (12.0-16.0); Immature Granulocytes Pct Auto 6.6 %; Lymphocytes Percent Auto 32.4 % (20-44); Mean Corpuscular HGB Conc 30 gm/dL (32-36); Mean Corpuscular Hemoglobin 30 pg (26-34); Mean Corpuscular Volume 100 fL (80-100); Monocytes Percent Auto 22.6 % (0.0-11.0); Neutrophils Percent Auto 31.3 % (42.0-72.0); Platelet Count* 670 K/uL (140-440); RDW Coefficient of Variation % 32.2 % (11.5-15.5); Red Blood Count 2.77 m/uL (4.00-5.20)
[2024-03-04 10:30] LABS: Corrected White Blood Count 47.48 K/UL (4.50-11.00); Slide Review Reflex Yes; White Blood Count* 127.25 K/uL (4.50-11.00)
[2024-03-04 10:31] LABS: Slide Review Acceptable Review (Acceptable)
[2024-03-18 10:27] LABS: Basophils Percent Auto 9.2 % (0.0-3.0); Eosinophils Percent Auto 0.3 % (0.0-7.0); Hematocrit 24.8 % (33.0-51.0); Lymphocytes Percent Auto 27.9 % (20-44); Mean Corpuscular HGB Conc 29 gm/dL (32-36); Mean Corpuscular Hemoglobin 30 pg (26-34); Mean Corpuscular Volume 103 fL (80-100); Neutrophils Percent Auto 46.6 % (42.0-72.0); Platelet Count* 789 K/uL (140-440); RDW Coefficient of Variation % 34.6 % (11.5-15.5)
[2024-03-18 11:02] LABS: Hemoglobin* 7.3 gm/dL (12.0-16.0); Slide Review Reflex Yes
[2024-03-18 11:03] LABS: Slide Review Acceptable Review (Acceptable)
[2024-03-19 10:57] VITALS: BP 113/68; PULSE 93; RESP 18; TEMP 36.9; O2SAT 92
[2024-03-19 11:12] VITALS: BP 113/68; PULSE 93; RESP 18; TEMP 36.9; O2SAT 92
[2024-03-19 11:29] VITALS: BP 105/70; PULSE 92; RESP 18; TEMP 36.6; O2SAT 90
[2024-03-19 12:07] VITALS: BP 111/77; PULSE 90; RESP 18; TEMP 36.6; O2SAT 92
[2024-03-19 13:15] VITALS: BP 102/76; PULSE 92; RESP 16; TEMP 36.8; O2SAT 94
[2024-03-30 09:19] LABS: Eosinophils Percent Auto 0.2 % (0.0-7.0); Hematocrit 25.7 % (33.0-51.0); Immature Granulocytes Pct Auto 7.5 %; Lymphocytes Percent Auto 21.2 % (20-44); Mean Corpuscular HGB Conc 30 gm/dL (32-36); Mean Corpuscular Hemoglobin 30 pg (26-34); Mean Corpuscular Volume 102 fL (80-100); Monocytes Percent Auto 17.1 % (0.0-11.0); Platelet Count* 858 K/uL (140-440); RDW Coefficient of Variation % 31.5 % (11.5-15.5); Red Blood Count 2.52 m/uL (4.00-5.20)
[2024-03-30 09:31] LABS: Chloride* 100 mmol/L (96-114)
[2024-03-30 09:32] LABS: Potassium* 4.2 mmol/L (3.6-5.1); Sodium* 138 mmol/L (135-149)
[2024-03-30 09:34] LABS: Estimated Glomerular Filt Rate 66 ml/min
[2024-03-30 09:35] LABS: Anion Gap 7 mEq/L (7-15); Blood Urea Nitrogen* 42 mg/dL (7-30); Calcium* 9.4 mg/dL (8.4-10.6); Carbon Dioxide* 31 mmol/L (20-32); Glucose* 106 mg/dL (60-115)
[2024-03-30 10:03] LABS: Hemoglobin* 7.6 gm/dL (12.0-16.0); Slide Review Reflex Yes; White Blood Count* 133.63 K/uL (4.50-11.00)
[2024-03-30 23:23] LABS: Slide Review Acceptable Review (Acceptable)
[2024-04-01 10:41] LABS: Eosinophils Percent Auto 0.3 % (0.0-7.0); Hematocrit 24.4 % (33.0-51.0); Immature Granulocytes Pct Auto 12.7 %; Lymphocytes Percent Auto 22.8 % (20-44); Mean Corpuscular HGB Conc 29 gm/dL (32-36); Mean Corpuscular Hemoglobin 30 pg (26-34); Mean Corpuscular Volume 102 fL (80-100); Monocytes Percent Auto 18.5 % (0.0-11.0); Neutrophils Percent Auto 35.7 % (42.0-72.0); Platelet Count* 821 K/uL (140-440); RDW Coefficient of Variation % 32.1 % (11.5-15.5); Red Blood Count 2.39 m/uL (4.00-5.20)
[2024-04-01 11:27] LABS: Corrected White Blood Count 47.05 K/UL (4.50-11.00)
[2024-04-01 11:38] LABS: Corrected White Blood Count 45.57 K/UL (4.50-11.00); Hemoglobin* 7.1 gm/dL (12.0-16.0); White Blood Count* 115.77 K/uL (4.50-11.00)
[2024-04-01 11:39] LABS: Slide Review Reflex Yes
[2024-04-01 23:55] LABS: Slide Review Acceptable Review (Acceptable)
[2024-04-02 09:41] VITALS: BP 110/73; PULSE 100; RESP 16; TEMP 36.6; O2SAT 91
[2024-04-02 10:14] VITALS: BP 110/73; PULSE 85; RESP 16; TEMP 36.6; O2SAT 91
[2024-04-02 10:33] VITALS: BP 98/64; PULSE 88; RESP 18; TEMP 36.5; O2SAT 96
[2024-04-02 11:03] VITALS: BP 105/70; PULSE 88; RESP 18; TEMP 36.6; O2SAT 96
[2024-04-02 11:33] VITALS: BP 99/56; PULSE 84; RESP 14; TEMP 36.5; O2SAT 92
[2024-04-02 12:29] VITALS: BP 106/69; PULSE 94; RESP 18; TEMP 36.7; O2SAT 92
[2024-04-14 10:30] LABS: Basophils Percent Auto 9.9 % (0.0-3.0); Eosinophils Percent Auto 0.3 % (0.0-7.0); Hematocrit 22.1 % (33.0-51.0); Lymphocytes Percent Auto 17.7 % (20-44); Mean Corpuscular HGB Conc 29 gm/dL (32-36); Mean Corpuscular Hemoglobin 29 pg (26-34); Mean Corpuscular Volume 101 fL (80-100); Monocytes Percent Auto 11.5 % (0.0-11.0); Neutrophils Percent Auto 60.6 % (42.0-72.0); Platelet Count* 808 K/uL (140-440); RDW Coefficient of Variation % 31.3 % (11.5-15.5)
[2024-04-14 10:36] LABS: Hemoglobin* 6.4 gm/dL (12.0-16.0); White Blood Count* 97.15 K/uL (4.50-11.00)
[2024-04-14 10:37] LABS: Slide Review Reflex No
[2024-04-15 11:45] VITALS: BP 119/58; PULSE 95; RESP 20; TEMP 36.5; O2SAT 90
[2024-04-15 12:03] VITALS: BP 97/52; PULSE 89; RESP 18; TEMP 36.7; O2SAT 91
[2024-04-15 12:33] VITALS: BP 94/57; PULSE 89; RESP 18; TEMP 36.4; O2SAT 90
[2024-04-15 12:45] VITALS: BP 107/69; PULSE 102; RESP 18; TEMP 36.6; O2SAT 91
[2024-04-15 13:33] VITALS: BP 109/69; PULSE 91; RESP 16; TEMP 36.5; O2SAT 89
[2024-04-15 14:03] VITALS: BP 111/71; PULSE 93; RESP 20; TEMP 36.6; O2SAT 90
--- NOTE | 2024-04-15 14:22 | ONC.NURNOTE ---
Patient declined staying full hour. Stayed 30 minutes post transfusion.
[2024-04-19 11:39] LABS: Basophils Percent Auto 7.5 % (0.0-3.0); Eosinophils Percent Auto 0.4 % (0.0-7.0); Hematocrit 22.2 % (33.0-51.0); Lymphocytes Percent Auto 16.4 % (20-44); Mean Corpuscular HGB Conc 30 gm/dL (32-36); Mean Corpuscular Hemoglobin 30 pg (26-34); Mean Corpuscular Volume 101 fL (80-100); Monocytes Percent Auto 9.5 % (0.0-11.0); Neutrophils Percent Auto 55.2 % (42.0-72.0); Platelet Count* 691 K/uL (140-440); RDW Coefficient of Variation % 27.7 % (11.5-15.5); Red Blood Count 2.19 m/uL (4.00-5.20)
[2024-04-19 12:05] LABS: Corrected White Blood Count 43.46 K/UL (4.50-11.00); Hemoglobin* 6.6 gm/dL (12.0-16.0); Slide Review Reflex Yes; White Blood Count* 86.48 K/uL (4.50-11.00)
[2024-04-19 12:08] LABS: Slide Review Acceptable Review (Acceptable)
[2024-04-20] VITALS (7 sets, daily range): BP systolic 94–106; BP diastolic 60–67; PULSE 93–102; RESP 16–20; TEMP 36.3–37.1; O2SAT 90–93
[2024-04-22 11:19] LABS: Basophils Percent Auto 9.1 % (0.0-3.0); Eosinophils Percent Auto 0.3 % (0.0-7.0); Hematocrit 23.3 % (33.0-51.0); Immature Granulocytes Pct Auto 15.3 %; Lymphocytes Percent Auto 21.4 % (20-44); Mean Corpuscular HGB Conc 30 gm/dL (32-36); Mean Corpuscular Hemoglobin 30 pg (26-34); Mean Corpuscular Volume 99 fL (80-100); Monocytes Percent Auto 16.6 % (0.0-11.0); Neutrophils Percent Auto 37.3 % (42.0-72.0); Platelet Count* 658 K/uL (140-440); RDW Coefficient of Variation % 27.8 % (11.5-15.5); Red Blood Count 2.35 m/uL (4.00-5.20)
[2024-04-22 12:04] LABS: White Blood Count* 86.91 K/uL (4.50-11.00)
[2024-04-22 12:05] LABS: Slide Review Reflex Yes
[2024-04-22 12:08] LABS: Corrected White Blood Count 40.23 K/UL (4.50-11.00); Slide Review Acceptable Review (Acceptable)
[2024-04-23 09:12] VITALS: BP 107/52; PULSE 98; RESP 18; TEMP 36.3; O2SAT 94
[2024-04-23 09:45] VITALS: BP 107/52; PULSE 98; RESP 18; TEMP 36.3; O2SAT 94
[2024-04-23 10:06] VITALS: BP 102/57; PULSE 89; RESP 20; TEMP 36.9; O2SAT 92
[2024-04-23 11:29] VITALS: BP 102/64; PULSE 95; RESP 20; TEMP 36.7; O2SAT 95
[2024-04-23 12:03] VITALS: BP 103/67; PULSE 90; RESP 20; TEMP 36.8; O2SAT 92
[2024-04-23 12:42] VITALS: BP 101/64; PULSE 90; RESP 20; TEMP 36.7; O2SAT 93
[2024-04-29 10:36] LABS: Basophils Percent Auto 7.7 % (0.0-3.0); Eosinophils Percent Auto 0.3 % (0.0-7.0); Lymphocytes Percent Auto 16.5 % (20-44); Mean Corpuscular HGB Conc 29 gm/dL (32-36); Mean Corpuscular Hemoglobin 29 pg (26-34); Mean Corpuscular Volume 98 fL (80-100); Monocytes Percent Auto 14.1 % (0.0-11.0); Neutrophils Percent Auto 61.4 % (42.0-72.0); Platelet Count* 695 K/uL (140-440); RDW Coefficient of Variation % 27.4 % (11.5-15.5); Red Blood Count 2.55 m/uL (4.00-5.20)
[2024-04-29 11:07] LABS: Hemoglobin* 7.3 gm/dL (12.0-16.0)
[2024-04-29 11:09] LABS: Corrected White Blood Count 36.15 K/UL (4.50-11.00)
[2024-04-30] VITALS (7 sets, daily range): BP systolic 99–113; BP diastolic 53–69; PULSE 94–104; RESP 16–22; TEMP 36.2–37; O2SAT 87–94
[2024-04-30 06:24] LABS: Slide Review Acceptable Review (Acceptable); Slide Review Reflex Yes
[2024-05-05 10:34] LABS: Basophils Percent Auto 10.4 % (0.0-3.0); Eosinophils Percent Auto 0.3 % (0.0-7.0); Hematocrit 24.9 % (33.0-51.0); Immature Granulocytes Pct Auto 8.3 %; Lymphocytes Percent Auto 15.5 % (20-44); Mean Corpuscular HGB Conc 30 gm/dL (32-36); Mean Corpuscular Hemoglobin 30 pg (26-34); Mean Corpuscular Volume 100 fL (80-100); Monocytes Percent Auto 7.8 % (0.0-11.0); Neutrophils Percent Auto 57.7 % (42.0-72.0); Platelet Count* 662 K/uL (140-440); RDW Coefficient of Variation % 25.1 % (11.5-15.5); Red Blood Count 2.48 m/uL (4.00-5.20)
[2024-05-05 11:09] LABS: Slide Review Reflex Yes
[2024-05-05 11:10] LABS: Corrected White Blood Count 41.25 K/UL (4.50-11.00); Hemoglobin* 7.5 gm/dL (12.0-16.0); White Blood Count* 89.09 K/uL (4.50-11.00)
[2024-05-05 11:11] LABS: Slide Review Acceptable Review (Acceptable)
--- NOTE | 2024-05-06 12:30 | ONC.NURNOTE ---
Hgb recheck today is 7.4; placed orders for 1 unit PRBC.
[2024-05-06 13:11] LABS: Basophils Percent Auto 8.7 % (0.0-3.0); Eosinophils Percent Auto 0.3 % (0.0-7.0); Hematocrit 25.6 % (33.0-51.0); Immature Granulocytes Pct Auto 10.6 %; Mean Corpuscular HGB Conc 29 gm/dL (32-36); Mean Corpuscular Hemoglobin 29 pg (26-34); Mean Corpuscular Volume 100 fL (80-100); Monocytes Percent Auto 7.9 % (0.0-11.0); Neutrophils Percent Auto 57.5 % (42.0-72.0); Platelet Count* 632 K/uL (140-440); RDW Coefficient of Variation % 26.2 % (11.5-15.5); Red Blood Count 2.55 m/uL (4.00-5.20)
[2024-05-06 13:13] LABS: Corrected White Blood Count 39.14 K/UL (4.50-11.00); Hemoglobin* 7.4 gm/dL (12.0-16.0); White Blood Count* 90.66 K/uL (4.50-11.00)
[2024-05-06 13:14] LABS: Slide Review Acceptable Review (Acceptable); Slide Review Reflex Yes
[2024-05-07] VITALS (7 sets, daily range): BP systolic 93–129; BP diastolic 56–97; PULSE 93–100; RESP 16–18; TEMP 35.9–37; O2SAT 88–96
[2024-05-13 10:24] LABS: Basophils Percent Auto 8.6 % (0.0-3.0); Eosinophils Percent Auto 0.2 % (0.0-7.0); Hematocrit 24.7 % (33.0-51.0); Immature Granulocytes Pct Auto 11.3 %; Lymphocytes Percent Auto 12.7 % (20-44); Mean Corpuscular HGB Conc 30 gm/dL (32-36); Mean Corpuscular Hemoglobin 30 pg (26-34); Mean Corpuscular Volume 100 fL (80-100); Monocytes Percent Auto 11.8 % (0.0-11.0); Neutrophils Percent Auto 55.4 % (42.0-72.0); Platelet Count* 717 K/uL (140-440); RDW Coefficient of Variation % 25.5 % (11.5-15.5); Red Blood Count 2.47 m/uL (4.00-5.20)
[2024-05-13 11:08] LABS: Corrected White Blood Count 38.58 K/UL (4.50-11.00)
[2024-05-13 11:09] LABS: Hemoglobin* 7.4 gm/dL (12.0-16.0); Slide Review Reflex Yes; White Blood Count* 86.41 K/uL (4.50-11.00)
[2024-05-13 11:10] LABS: Slide Review Acceptable Review (Acceptable)
[2024-05-14 10:12] VITALS: BP 99/61; PULSE 110; RESP 18; TEMP 37; O2SAT 93
[2024-05-14 11:04] VITALS: BP 99/61; PULSE 110; RESP 18; TEMP 37; O2SAT 94
[2024-05-14 11:21] VITALS: BP 97/61; PULSE 100; RESP 16; TEMP 37; O2SAT 93
[2024-05-14 11:51] VITALS: BP 108/64; PULSE 101; RESP 20; TEMP 36.9; O2SAT 93
[2024-05-14 12:21] VITALS: BP 98/52; PULSE 100; RESP 22; TEMP 36.9; O2SAT 95
[2024-05-14 12:51] VITALS: BP 94/56; PULSE 99; RESP 20; TEMP 36.9; O2SAT 91
[2024-05-20 10:18] LABS: Basophils Percent Auto 10.7 % (0.0-3.0); Eosinophils Percent Auto 0.3 % (0.0-7.0); Hematocrit 25.4 % (33.0-51.0); Immature Granulocytes Pct Auto 11.1 %; Lymphocytes Percent Auto 12.9 % (20-44); Mean Corpuscular HGB Conc 30 gm/dL (32-36); Mean Corpuscular Hemoglobin 29 pg (26-34); Mean Corpuscular Volume 97 fL (80-100); Monocytes Percent Auto 8.2 % (0.0-11.0); Neutrophils Percent Auto 56.8 % (42.0-72.0); Platelet Count* 673 K/uL (140-440); RDW Coefficient of Variation % 25.7 % (11.5-15.5); Red Blood Count 2.62 m/uL (4.00-5.20)
[2024-05-20 11:35] LABS: Corrected White Blood Count 37.87 K/UL (4.50-11.00); Hemoglobin* 7.6 gm/dL (12.0-16.0); Slide Review Reflex Yes; White Blood Count* 78.79 K/uL (4.50-11.00)
[2024-05-20 22:44] LABS: Slide Review Acceptable Review (Acceptable)
[2024-05-24 09:47] LABS: Hematocrit 24.5 % (33.0-51.0); Mean Corpuscular HGB Conc 30 gm/dL (32-36); Mean Corpuscular Hemoglobin 29 pg (26-34); Mean Corpuscular Volume 97 fL (80-100); Neutrophils Percent Auto 39.4 % (42.0-72.0); Platelet Count* 695 K/uL (140-440); RDW Coefficient of Variation % 26.1 % (11.5-15.5); Red Blood Count 2.53 m/uL (4.00-5.20)
[2024-05-24 09:48] LABS: Basophils Percent Auto 10.5 % (0.0-3.0); Eosinophils Percent Auto 0.3 % (0.0-7.0); Immature Granulocytes Pct Auto 16.2 %; Lymphocytes Percent Auto 18.4 % (20-44); Monocytes Percent Auto 15.2 % (0.0-11.0)
[2024-05-24 10:53] LABS: Hemoglobin* 7.3 gm/dL (12.0-16.0)
[2024-05-24 10:55] LABS: Slide Review Reflex Yes
[2024-05-24 10:56] LABS: Slide Review Acceptable Review (Acceptable)
[2024-05-25] VITALS (8 sets, daily range): BP systolic 94–110; BP diastolic 52–71; PULSE 94–106; RESP 16–18; TEMP 36.6–36.8; O2SAT 92–94
--- NOTE | 2024-05-25 13:25 | ONC.NURNOTE ---
Pt tolerated 1 unit of PRBC well today. Pt observed for 30 min, pt declined to stay an additional 30 min.
[2024-05-31 10:05] LABS: Basophils Percent Auto 9.5 % (0.0-3.0); Eosinophils Percent Auto 0.3 % (0.0-7.0); Hematocrit 23.5 % (33.0-51.0); Immature Granulocytes Pct Auto 16.3 %; Lymphocytes Percent Auto 16.6 % (20-44); Mean Corpuscular HGB Conc 29 gm/dL (32-36); Mean Corpuscular Hemoglobin 29 pg (26-34); Mean Corpuscular Volume 98 fL (80-100); Monocytes Percent Auto 15.6 % (0.0-11.0); Neutrophils Percent Auto 41.7 % (42.0-72.0); Platelet Count* 650 K/uL (140-440); RDW Coefficient of Variation % 25.1 % (11.5-15.5); Red Blood Count 2.41 m/uL (4.00-5.20)
[2024-05-31 10:47] LABS: Corrected White Blood Count 34.78 K/UL (4.50-11.00); Hemoglobin* 6.9 gm/dL (12.0-16.0); White Blood Count* 72.38 K/uL (4.50-11.00)
[2024-05-31 10:48] LABS: Slide Review Reflex Yes
[2024-05-31 15:43] LABS: Slide Review Acceptable Review (Acceptable)
[2024-06-01] VITALS (7 sets, daily range): BP systolic 91–106; BP diastolic 41–70; PULSE 99–113; RESP 16–20; TEMP 36.5–37.1; O2SAT 88–94
--- NOTE | 2024-06-01 15:46 | ONC.NURNOTE ---
Pt here for 1 unit of irradiated blood. Pt encouraged to reach out to [facility] since hemoglobin has been very low despite receiving blood transfusions at least weekly. Per [place], pt encouraged to go to the ER or primary since she also c/o dark stools. Pt frustrated due to not feeling well, gaining weight. Oxygen sats at times at 80%, with encouraging deep breaths, pt O2 up to 93% on room air. BP at end of transfusion 91/48 sitting, standing it was 108/64. Due to fluctuating BP, lower O2 sats, and low hemoglobin, pt encouraged by nursing to be evaluated in the ED today. Pt declined and stated she will go to the emergency room tomorrow to be evaluated. All labs faxed to [facility] and updated pt wants to be evaluated tomorrow.
[2024-06-07 12:15] VITALS: BP 98/49; PULSE 107; RESP 20; O2SAT 90
[2024-06-07 12:17] LABS: Basophils Percent Auto 8.5 % (0.0-3.0); Eosinophils Percent Auto 0.3 % (0.0-7.0); Hematocrit 23.9 % (33.0-51.0); Immature Granulocytes Pct Auto 14.5 %; Lymphocytes Percent Auto 14.2 % (20-44); Mean Corpuscular HGB Conc 30 gm/dL (32-36); Mean Corpuscular Hemoglobin 29 pg (26-34); Mean Corpuscular Volume 95 fL (80-100); Monocytes Percent Auto 7.1 % (0.0-11.0); Neutrophils Percent Auto 55.4 % (42.0-72.0); Platelet Count* 598 K/uL (140-440); RDW Coefficient of Variation % 24.7 % (11.5-15.5); Red Blood Count 2.51 m/uL (4.00-5.20)
--- NOTE | 2024-06-07 12:18 | ONC.NURNOTE ---
Patient here for CBC, stating she is feeling tired again. Patient's vitals showed hypotension, tachycardia. She is declining ER care, they are working with their teleprinter in [place]. Looking into her record, there is a message asking them to call and schedule some appointments with hematology. , Gian will be doing this. Her weight is also up 6kg from 05/14/2024. Patient and spouse have left messages with cardiology and have not received response, they have an appointment in July at this time. There was an order for a PRN BMP, this was drawn in addition to her CBC. All vital signs, assessment and lab results to be sent to both cardiology and hematology following results completed.
[2024-06-07 12:59] LABS: White Blood Count* 62.35 K/uL (4.50-11.00)
[2024-06-07 13:00] LABS: Corrected White Blood Count 32.47 K/UL (4.50-11.00); Hemoglobin* 7.2 gm/dL (12.0-16.0); Slide Review Reflex Yes
[2024-06-07 13:06] LABS: Slide Review Acceptable Review (Acceptable)
[2024-06-08 10:17] VITALS: BP 100/68; PULSE 106; RESP 20; TEMP 36.9; O2SAT 92
[2024-06-08 10:35] VITALS: BP 102/65; PULSE 107; RESP 20; TEMP 36.9; O2SAT 89
[2024-06-08 11:05] VITALS: BP 98/63; PULSE 95; RESP 20; TEMP 36.9; O2SAT 90
[2024-06-08 11:35] VITALS: BP 105/49; PULSE 117; RESP 16; TEMP 36.7; O2SAT 90
[2024-06-08 12:25] VITALS: BP 105/64; PULSE 107; RESP 20; TEMP 36.9; O2SAT 91
[2024-06-08 12:57] VITALS: BP 99/61; PULSE 103; RESP 18; TEMP 36.8; O2SAT 91
[2024-06-16 11:17] LABS: Basophils Percent Auto 6.2 % (0.0-3.0); Eosinophils Percent Auto 0.2 % (0.0-7.0); Hematocrit 22.9 % (33.0-51.0); Immature Granulocytes Pct Auto 15.5 %; Mean Corpuscular HGB Conc 30 gm/dL (32-36); Mean Corpuscular Hemoglobin 28 pg (26-34); Mean Corpuscular Volume 94 fL (80-100); Monocytes Percent Auto 12.4 % (0.0-11.0); Neutrophils Percent Auto 52.7 % (42.0-72.0); Platelet Count* 567 K/uL (140-440); RDW Coefficient of Variation % 24.8 % (11.5-15.5); Red Blood Count 2.44 m/uL (4.00-5.20)
[2024-06-16 11:47] LABS: Corrected White Blood Count 32.49 K/UL (4.50-11.00); Hemoglobin* 6.9 gm/dL (12.0-16.0); White Blood Count* 69.52 K/uL (4.50-11.00)
[2024-06-16 11:48] LABS: Slide Review Reflex Yes
[2024-06-16 11:58] LABS: Slide Review Acceptable Review (Acceptable)
[2024-06-17] VITALS (7 sets, daily range): BP systolic 95–110; BP diastolic 51–69; PULSE 85–110; RESP 18–20; TEMP 36.4–37.1; O2SAT 86–90
[2024-06-22 12:14] LABS: Basophils Percent Auto 8.9 % (0.0-3.0); Eosinophils Percent Auto 0.3 % (0.0-7.0); Hematocrit 23.9 % (33.0-51.0); Immature Granulocytes Pct Auto 16.1 %; Lymphocytes Percent Auto 16.3 % (20-44); Mean Corpuscular HGB Conc 30 gm/dL (32-36); Mean Corpuscular Hemoglobin 28 pg (26-34); Mean Corpuscular Volume 94 fL (80-100); Monocytes Percent Auto 11.8 % (0.0-11.0); Neutrophils Percent Auto 46.6 % (42.0-72.0); Platelet Count* 545 K/uL (140-440); RDW Coefficient of Variation % 23.7 % (11.5-15.5); Red Blood Count 2.54 m/uL (4.00-5.20)
[2024-06-22 13:20] LABS: Slide Review Reflex Yes
[2024-06-22 13:21] LABS: Hemoglobin* 7.2 gm/dL (12.0-16.0)
[2024-06-22 13:27] LABS: Corrected White Blood Count 29.41 K/UL (4.50-11.00); White Blood Count* 66.47 K/uL (4.50-11.00)
[2024-06-23] VITALS (8 sets, daily range): BP systolic 99–118; BP diastolic 50–71; PULSE 98–105; RESP 18–22; TEMP 36.6–36.9; O2SAT 90–94
[2024-06-23 05:14] LABS: Slide Review Acceptable Review (Acceptable)
[2024-06-29 09:40] LABS: Basophils Percent Auto 8.7 % (0.0-3.0); Eosinophils Percent Auto 0.3 % (0.0-7.0); Hematocrit 24.1 % (33.0-51.0); Immature Granulocytes Pct Auto 13.7 %; Lymphocytes Percent Auto 19.4 % (20-44); Mean Corpuscular HGB Conc 30 gm/dL (32-36); Mean Corpuscular Hemoglobin 28 pg (26-34); Mean Corpuscular Volume 94 fL (80-100); Monocytes Percent Auto 3.1 % (0.0-11.0); Neutrophils Percent Auto 54.8 % (42.0-72.0); Platelet Count* 475 K/uL (140-440); RDW Coefficient of Variation % 22.6 % (11.5-15.5); Red Blood Count 2.56 m/uL (4.00-5.20)
[2024-06-29 10:37] LABS: Corrected White Blood Count 30.71 K/UL (4.50-11.00); White Blood Count* 59.58 K/uL (4.50-11.00)
[2024-06-29 10:38] LABS: Hemoglobin* 7.2 gm/dL (12.0-16.0); Slide Review Reflex Yes
[2024-06-29 10:40] LABS: Slide Review Acceptable Review (Acceptable)
[2024-06-30] VITALS (7 sets, daily range): BP systolic 98–123; BP diastolic 46–80; PULSE 93–98; RESP 22–24; TEMP 36.2–36.8; O2SAT 90–92
[2024-07-06 11:16] LABS: Eosinophils Percent Auto 0.2 % (0.0-7.0); Hematocrit 24.1 % (33.0-51.0); Mean Corpuscular HGB Conc 31 gm/dL (32-36); Mean Corpuscular Hemoglobin 29 pg (26-34); Mean Corpuscular Volume 96 fL (80-100); Platelet Count* 438 K/uL (140-440); RDW Coefficient of Variation % 22.1 % (11.5-15.5); Red Blood Count 2.52 m/uL (4.00-5.20)
[2024-07-06 12:02] LABS: Slide Review Reflex Yes
[2024-07-06 12:03] LABS: Corrected White Blood Count 26.72 K/UL (4.50-11.00); White Blood Count* 53.97 K/uL (4.50-11.00)
[2024-07-06 12:05] LABS: Hemoglobin* 7.4 gm/dL (12.0-16.0)
[2024-07-06 12:09] LABS: Slide Review Acceptable Review (Acceptable)
[2024-07-08 13:15] VITALS: BP 112/79; PULSE 111; RESP 26; TEMP 36.8; O2SAT 82
--- NOTE | 2024-07-08 14:25 | PC.NURSE ---
Patient arrived to [facility] at 1300. Pt verbalized it took all morning for me to get ready because I am so tired. Pt 02 saturations sitting at 82% on RA, can increase to 91% on RA for a few seconds with deep breaths and once deep breaths stop, 02 back at 82%. Weight up significantly today, and gradually increased over the past two months. 4+ Pitting edema, pt verbalized Lasix is not working well for her anymore. see vitals in worklist. Pt reported we are probably going to [facility] after this to go to the hospital but I wanted my blood first. Pt also verbalized, none of my clothes fit anymore because i'm so swollen. Second dose of lasix is due but patient verbalized, I don't want to have to pee throughout my blood tranfusion so I didn't bring my meds. Karol Zhang notified and in to see patient. Discussed plan to go to [place] for blood and hospitalization. Pt's spouse in contact with [facility] and set up a plan. Pt was not tranfused today and agreed to go to [place] for blood and admit to hospital. Pt left at 1420 and will head via private car with spouse to [place].
--- NOTE | 2024-08-09 11:01 | ONC.NURNOTE ---
Patient called to have her blood checked. She was noted to have been admitted to [place] from 07/24-08/03. Hematology team was called to be sure that orders do not need to be adjusted for transfusion, they are denying the need to change any parameters. She is meeting with hematology to discuss possible bone marrow transplant tomorrow. Nursing to remind patient that she needs to be seen by PCP to look at electrolytes and renal function. She also has recommendations for EGD and pulmonary hypertension.
[2024-08-09 11:27] LABS: Basophils Percent Auto 7.8 % (0.0-3.0); Eosinophils Percent Auto 0.2 % (0.0-7.0); Hematocrit 23.1 % (33.0-51.0); Immature Granulocytes Pct Auto 18.9 %; Lymphocytes Percent Auto 22.1 % (20-44); Mean Corpuscular HGB Conc 32 gm/dL (32-36); Mean Corpuscular Hemoglobin 29 pg (26-34); Mean Corpuscular Volume 92 fL (80-100); Platelet Count* 277 K/uL (140-440); RDW Coefficient of Variation % 18.3 % (11.5-15.5)
[2024-08-09 12:07] LABS: Corrected White Blood Count 22.99 K/UL (4.50-11.00); Hemoglobin* 7.3 gm/dL (12.0-16.0); Slide Review Reflex Yes; White Blood Count* 28.28 K/uL (4.50-11.00)
--- NOTE | 2024-08-09 12:28 | ONC.NURNOTE ---
Hgb today 7.3. Per parameters, transfuse 1 unit irradiated PRBC for Hgb <7.5. Order placed; confirmed with patient and blood bank for pt to have transfusion tomorrow 08/10 at 11am.
[2024-08-09 12:59] LABS: Slide Review Acceptable Review (Acceptable)
[2024-08-10] VITALS (7 sets, daily range): BP systolic 94–108; BP diastolic 51–61; PULSE 74–87; RESP 16–20; TEMP 36.1–36.8; O2SAT 90–98
[2024-08-17 11:25] LABS: Basophils Percent Auto 6.5 % (0.0-3.0); Eosinophils Percent Auto 0.3 % (0.0-7.0); Hematocrit 23.8 % (33.0-51.0); Immature Granulocytes Pct Auto 20.7 %; Mean Corpuscular HGB Conc 31 gm/dL (32-36); Mean Corpuscular Hemoglobin 28 pg (26-34); Mean Corpuscular Volume 91 fL (80-100); Monocytes Percent Auto 8.4 % (0.0-11.0); Neutrophils Percent Auto 50.1 % (42.0-72.0); Platelet Count* 341 K/uL (140-440); RDW Coefficient of Variation % 19.1 % (11.5-15.5); Red Blood Count 2.61 m/uL (4.00-5.20)
[2024-08-17 12:04] LABS: Hemoglobin* 7.4 gm/dL (12.0-16.0); White Blood Count* 34.72 K/uL (4.50-11.00)
[2024-08-17 12:05] LABS: Corrected White Blood Count 25.76 K/UL (4.50-11.00); Slide Review Reflex Yes
[2024-08-17 12:17] LABS: Slide Review Acceptable Review (Acceptable)
[2024-08-18] VITALS (7 sets, daily range): BP systolic 91–98; BP diastolic 46–63; PULSE 69–93; RESP 16–18; TEMP 35.9–36.4; O2SAT 89–93
[2024-08-31 12:10] LABS: Hematocrit 22.3 % (33.0-51.0); Mean Corpuscular HGB Conc 31 gm/dL (32-36); Mean Corpuscular Hemoglobin 28 pg (26-34); Mean Corpuscular Volume 91 fL (80-100); Platelet Count* 391 K/uL (140-440); RDW Coefficient of Variation % 18.5 % (11.5-15.5); Red Blood Count 2.46 m/uL (4.00-5.20)
[2024-08-31 12:12] LABS: Hemoglobin* 6.8 gm/dL (12.0-16.0); Slide Review Reflex Yes; White Blood Count* 38.67 K/uL (4.50-11.00)
[2024-08-31 13:27] LABS: Slide Review Req Man Differential (Acceptable)
[2024-08-31 13:28] LABS: Basophils Percent Auto 6.6 % (0.0-3.0); Corrected White Blood Count 20.35 K/UL (4.50-11.00); Eosinophils Percent Auto 0.2 % (0.0-7.0); Lymphocytes Percent Auto 15.8 % (20-44); Monocytes Percent Auto 3.9 % (0.0-11.0)
[2024-08-31 13:29] LABS: Immature Granulocytes Pct Auto 21.2 %
[2024-08-31 13:30] LABS: Neutrophils Percent Auto 52.3 % (42.0-72.0); Total Cells Counted 100
[2024-08-31 13:32] LABS: Smudge Cells Moderate
[2024-08-31 13:33] LABS: Large Platelets Moderate; Polychromasia Slight (Absent)
[2024-09-01] VITALS (7 sets, daily range): BP systolic 91–119; BP diastolic 54–67; PULSE 80–93; RESP 16–20; TEMP 36.3–37.1; O2SAT 91–95
[2024-09-01] MEDS: 0.9 % SODIUM CHLORIDE 500 ML 250 ML IV (12:59)
== END 2024-09-01 23:59 | disposition home or self-care (01) ==
LOC: CCIC 12:30
PROVIDERS: Internal Medicine Cardiovascular Disease; PCP Internal Medicine; Referring Provider Internal Medicine; Visit Provider Clinical Nurse Specialist
DX: D61.818 Other pancytopenia (principal); D75.81 Myelofibrosis; D46.9 Myelodysplastic syndrome, unspecified; D47.1 Chronic myeloproliferative disease
CPT/HCPCS: 36415; 36430; 80048; 85025; 86850; 86900; 86901; 86922; 99211; J7030; P9016

== ENCOUNTER 2024-12-17 13:03 | Outpatient (CLI) | payer MEDICARE, MEDICAID, SELFPAY ==
--- NOTE | 2024-12-17 13:20 | CRLHL7_ITS ---
For Patients: As a result of the Century Cures Act, medical imaging exams and procedure reports are released immediately into your electronic medical record. You may view this report before your referring provider. If you have questions, please contact your health care provider. INDICATION: BILATERAL SCREENING MAMMOGRAM, ASYMPTOMATIC 54 Y/O FEMALE COMPARISON: 11/06/2022 TECHNIQUE: Digital mammogram in CC and MLO projections including computer-aided detection (CAD) and tomosynthesis. BREAST COMPOSITION: The breasts are almost entirely fatty. FINDINGS: No suspicious findings. ASSESSMENT: BI-RADS 1 Negative RECOMMENDATION: Annual screening mammogram. A lay language report of this examination will be provided to the patient. Dictated by: Keon Graff MD @ 12/23/2024 09:27:55 (Electronically Signed)
== END 2024-12-17 13:04 | disposition home or self-care (01) ==
LOC: MAMMO 13:04
PROVIDERS: PCP Internal Medicine; Visit Provider Internal Medicine
DX: Z12.31 Encounter for screening mammogram for malignant neoplasm of breast (principal); D72.829 Elevated white blood cell count, unspecified; D75.81 Myelofibrosis
CPT/HCPCS: 36415; 36430; 77063; 77067; 85025; 86850; 86900; 86901; 86922; G0463; P9016

== ENCOUNTER 2025-02-14 08:58 | Emergency (ER) | payer MEDICARE, MEDICAID, SELFPAY ==
--- OUTSIDE RECORDS SUMMARY | 2025-02-14 09:02 | XMS_ITS | Clinical Summary ---
Author Organization [facility] Address [address] [place] [address] Care Team Providers Care Videographer Name Role Phone No Ref-Primary, Physician Primary [...] sodium-potassiu m bicarbonate-cit devi acid (VASYL-SELTZER GOLD) [phone] MG TBEF solu-tab Take 1 tablet by mouth Active folic acid (FOLVITE) 1 MG tablet 07/01/2019 Active Active Problems Problem Noted Date Diagnosed Date Myeloproliferative disorder 02/10/2017 Immunizations Immunization Administration Dates Next Due HIB (PRP-T) 02/04/2019(Deferred: [...] on file Legal Sex Female 4:16 AM FINANCIAL RISK MANAGER Gender Identity Not on file Sexual Orientation Not on file Last Filed Vital Signs Vital Sign Reading Time Taken Comments Blood Pressure 118/72 05/29/2020 2:20 PM FINANCIAL RISK MANAGER Pulse 63 05/29/2020 2:20 PM FINANCIAL RISK MANAGER Temperature 36.4 C (97.6 F) 05/29/2020 2:20 PM FINANCIAL RISK MANAGER Respiratory Rate 16 05/29/2020 2:20 PM FINANCIAL RISK MANAGER Oxygen Saturation 98% 05/29/2020 1:09 PM FINANCIAL RISK MANAGER Inhaled Oxygen Concentration - - Weight 92.5 kg (203 lb 14.4 oz) 07/29/2019 9:51 AM FINANCIAL RISK MANAGER Height 169.5 cm (5' 6.75) 07/29/2019 9:51 AM CS T Body Mass Index 32.17 07/29/2019 9:51 AM FINANCIAL RISK MANAGER Plan of Treatment Not on file Care Teams Videographer Relationship Specialty Start Date End Date No Ref-Primary, Physician PCP - General 09/30/17 Candida Epps MD Internal Medicine 01/15/19
--- OUTSIDE RECORDS SUMMARY | 2025-02-14 09:02 | XMS_ITS | Clinical Summary ---
Author Organization [facility] Address [address] [place] [address] Care Team Providers Care District Fire Chief Name Role Phone Ab Patterson MD Primary Care Provider +1- [phone] Source Comments You are receiving this document [...] for each transition of care or referral. [facility] Allergies Active Allergy Reactions Criticality Noted Date Comments Latex 10/15/2010 PN: Converted from LW Latex Sensitivity Flag Medications HYDROcodone-irma taminophen (VICODIN) 5-500 MG tablet Take 1-2 tablets by mouth every 4 hours as needed. LW Addl Instr:Maximum of 8 tablets/24 hours. 15 01/01/ 7 Active Additional Information Patient not taking.Reported on 04/11/2016 MORPHINE SULFATE OR 15 mg. Active oxyCODONE (AKA ROXICODONE) 5 MG immediate release tablet Take 5 mg by mouth every 4 hours as needed for Pain. Active sennosides-docu sate sodium (SENNA-DOCUSATE ) 8.6-50 MG tablet Take 1 Tab by [...] and spleen managed by Dr Delgadillo of [place] pain Plantar fasciitis 12/01/2015 Immunizations Immunization Administration Dates Next Due Td 08/23/1998 Family History Medical History Relation Name Comments Heart Disease Father Hypertension Father Cancer, Colon Mother Relation Name Status Comments Father Mother Social History Tobacco Use Types Packs/Day Years Used Date Smoking Tobacco: Never Assessed Comments No Sex and Gender Information Value Date Recorded Sex Assigned at Not on file Legal Sex Female 5:04 AM CDT Gender Identity Not on file Sexual Orientation [...] Screening (Preventive Services) 1968 Mammogram 1968 HepB Vaccine (1) 1987 DTaP/Tdap/Td Vaccine (1 - Tdap) 08/24/1998 08/23/1998 Cholesterol 2013 02/22/1998 Adult Preventive Visit 04/11/2017 6, 01/22/1999 Pneumococcal Vaccine 50+ Yrs (1 of 1 - PCV) 2018 Zoster/Shingles Vaccine (1 o f 2) 2018 Cervical Cancer Screening 04/11/20212015, 01/22/1999 COVID-19 Vaccine (2023-2 5 season) 2024 Influenza Vaccine (#1) 2025 HIV Screening (Preventive Services) Completed 02/22/1998 HepA Vaccine Aged Out No longer eligi ble based on patient's age to complete this topic Hib Vaccine Aged Out No longer eligi ble based on patient's age to complete this topic IPV (Polio) Vaccine Aged Out No longe r eligible based on patient's age to complete this topic MCV4 Vaccine Aged Out No longer eligi ble based on patient's age to complete this topic Meningococcal B Vaccine Aged Out No l onger eligible based [...] (04/11/2016 2:10 PM CDT) Cytology, Pap (NOTE) Chief Scientist Cytology Report Patient Name: JENNIFER MENDEZ Taken: [...] Menopausal Microscopic Description Microscopic examination is performed. [facility] Department of Pathology [address] [place] [address] [facility] 04/11/2016 2:10 PM CDT 04/12/2016 7:17 AM CDT us Kari Dixon MD LAB_1 Final Resu lt [facility] [phone] * CHOLESTEROL, TOTAL AND HDL (02/22/1998 11:50 AM CDT) Cholesterol 160 <200 mg/dl [facility] HDL 43 >35 mg/dl [facility] 02/22/1998 11:5 0 AM CDT 02/22/1998 11:51 AM CDT us Radha Tovar APRN, VALDEMAR LAB_1 Final R esult Performing Organization Address [facility] Co de Phone Number [facility] [address] [address] * HIV 1/2 ANTIBODY (02/22/1998 11:50 AM CDT) HIV 1/2 Antibody Non-Reacti ve [facility] 02/22/1998 11:5 0 AM CDT 02/22/1998 11:51 AM CDT us Radha Tovar APRN, BREAD JOCKEY LAB_1 Final R esult Performing Organization Address [facility] de Phone Number [facility] [address] [address] from Last 3 Months or Most Recently Relevant to Health Maintenance Insurance [employer] Care Teams District Fire Chief Relationship Specialty [place] [address] [place] [address] PCP - General Family Practice 11/30/15
--- OUTSIDE RECORDS SUMMARY | 2025-02-14 09:02 | XMS_ITS | Encounter Summary ---
Author Organization [facility] Address [address] [place] [address] Care Team Providers Care Partridge Farmer Name Role Phone Ab Patterson MD Primary Care Provider +1- [phone] Encounter Details Date Type Department Care Team (Late st Contact Info) Description 05/10/2016 Scanned History External to Transferred Record, Provider [facility] Social History Tobacco Use Types Packs/Day Years [...] on filedocumented in this encounter Care Teams Partridge Farmer Relationship Specialty [place] [address] [place] [address] PCP - General Family Practice 11/30/15 documented as of this encounter
--- OUTSIDE RECORDS SUMMARY | 2025-02-14 09:02 | XMS_ITS | Encounter Summary ---
Author Organization [facility] Address [address] [place] [address] Care Team Providers Care Tong Carrier Name Role Phone Ab Patterson MD Primary Care Provider +1- [phone] Encounter Details Date Type Department Care Team (Late st Contact Info) Description 12/13/2015 Outside Hospital External to [facility], Provider HISTORY AND PHYSICAL Social History Tobacco [...] on filedocumented in this encounter Care Teams Tong Carrier Relationship Specialty [place] [address] [place] [address] PCP - General Family Practice 11/30/15 documented as of this encounter
--- OUTSIDE RECORDS SUMMARY | 2025-02-14 09:02 | XMS_ITS | Clinical Summary ---
Author Organization [facility] Address [address] [place] [address] Care Team Providers Care Photonics Engineering Technologist Name Role Phone None Primary Care Provider [...] on file Legal Sex Female 6:49 AM ELECTRONIC INDUCTION HARDENER Gender Identity Not on file Sexual Orientation Not on file Obstetrics History Last Filed Vital Signs Vital Sign Reading Time Taken Comments Blood Pressure 113/66 05/24/2021 1:18 PM ELECTRONIC INDUCTION HARDENER Pulse 111 05/24/2021 1:18 PM ELECTRONIC INDUCTION HARDENER Temperature 36.2 C (97.1 F) 05/24/2021 1:18 PM ELECTRONIC INDUCTION HARDENER Respiratory Rate 20 05/24/2021 1:18 PM ELECTRONIC INDUCTION HARDENER Oxygen Saturation 94% 05/24/2021 11:07 AM ELECTRONIC INDUCTION HARDENER Inhaled Oxygen Concentration - - Weight 92.1 kg (203 lb) 04/14/2021 1:22 PM CDT Height 170.2 cm (5' 7) 04/14/2021 1:22 PM CDT Body Mass Index 31.79 04/14/2021 1:22 PM CDT Plan of Treatment Health Maintenance Due Date Last Done Comments Tetanus booster 1979 Depression screening for age 12+ 1980 HIV for age 15-65 1983 BMI (ht and wt on same day) for age 18+ 1986 Hepatitis C screening for age 18-79 1986 Hepatitis B series for 19+ ( 1 of 3 - 19+ 3-dose series) 1987 Pap test for age 21-65 1989 Colonoscopy through age 75 2013 Lipids for age 45-75 2013 Mammogram for age 45-75 2013 Pneumococcal series for age 50+ (1 of 1 - PCV) 2018 Zoster (shingles) series for age 50+ (1 of 2) 2018 COVID-19 vaccine series (2023- season) 2024 12/05/2020, 11/07/2020 Influenza Vaccine (#1) 2025 Insurance MEDICARE PART B HB ONLY [facility] MEDICARE [place] ONLY [id number] [place] [address] Care Teams Photonics Engineering Technologist Relationship Specialty Start Date End Date None . PCP - General 10/03/20
[2025-02-14 09:05] VITALS: BP 102/33; PULSE 80; RESP 18; TEMP 36.3; O2SAT 98; BMI 36.4
[2025-02-14 09:18] VITALS: O2SAT 94
--- NOTE | 2025-02-14 09:18 | CRLHL7_ITS ---
For Patients: As a result of the Century Cures Act, medical imaging exams and procedure reports are released immediately into your electronic medical record. You may view this report before your referring provider. If you have questions, please contact your health care provider. INDICATION: Dizziness and vertigo. COMPARISON: None. TECHNIQUE: CT of the brain / head without intravenous contrast. Multiplanar axial, coronal, and sagittal reformats were reconstructed. FINDINGS: No intracranial hemorrhage. Normal appearance of the white matter. No acute or subacute cortically based infarct. No cerebral edema. No mass or mass effect. Normal ventricles. No skull fractures. No worrisome focal bone lesion. Developmentally underpneumatized mastoids. No mastoid effusion. The middle ears are clear. Paranasal sinuses included in the field of view have some mucoceles in the right maxillary sinus but no mucosal thickening. IMPRESSION: Normal head CT. Please note that all CT scans at this facility use dose modulation, iterative reconstruction, and/or weight-based dosing when appropriate to reduce radiation dose to as low as reasonably achievable. Dictated by Otilia Barcenas MD @ 02/14/2025 9:51:10 AM (Electronically Signed)
[2025-02-14 10:12] LABS: Hematocrit 19.6 % (33.0-51.0); Immature Granulocytes Pct Auto 15.1 %; Mean Corpuscular HGB Conc 32 gm/dL (32-36); Mean Corpuscular Hemoglobin 29 pg (26-34); Mean Corpuscular Volume 91 fL (80-100); RDW Coefficient of Variation % 17.7 % (11.5-15.5); Red Blood Count 2.16 m/uL (4.00-5.20); Troponin, Point-of-Care* 0.01 ng/ml (0.01-0.04); White Blood Count* 15.86 K/uL (4.50-11.00)
[2025-02-14 10:12] LABS: Glucose, Point-of-Care* 170 mg/dl (60-115)
[2025-02-14 10:27] LABS: Chloride* 101 mmol/L (96-114); Potassium* 3.4 mmol/L (3.6-5.1); Sodium* 137 mmol/L (135-149)
[2025-02-14 10:30] VITALS: BP 104/58; PULSE 71; RESP 22; O2SAT 95
[2025-02-14 10:30] LABS: Anion Gap 8 mEq/L (7-15); Blood Urea Nitrogen* 22 mg/dL (7-30); Calcium* 9.6 mg/dL (8.4-10.6); Carbon Dioxide* 28 mmol/L (20-32); Creatinine* 0.8 mg/dL (0.5-1.5); Est. Creatinine Clearance* 76.36; Estimated Glomerular Filt Rate 86 ml/min; Glucose* 153 mg/dL (60-115)
[2025-02-14 10:34] LABS: INR 1.02 (0.91-1.10); Prothrombin Time 14.2 Seconds
[2025-02-14 10:44] LABS: Hemoglobin* 6.3 gm/dL (12.0-16.0); Immature Granulocytes Abs Auto 2.30 K/uL (0.00-0.30); Lymphocytes Absolute Auto 2.40 K/uL (0.90-2.90); Slide Review Reflex Yes
[2025-02-14 10:47] LABS: NT Pro B Type NatriureticPept* 900 pg/mL (See Note)
[2025-02-14 11:00] VITALS: BP 101/60; PULSE 73; RESP 16; O2SAT 93
[2025-02-14 11:30] VITALS: BP 111/49; PULSE 61; RESP 12; O2SAT 96
--- NOTE | 2025-02-14 11:58 | ED.WEAKNESS ---
HPI - Weakness General Date Seen: 02/14/25 Chief complaint: Weakness Stated complaint: low on blood, weakness, foggy vison Time Seen by Provider: 02/14/25 09:17 Source: patient and family Mode of arrival: ambulatory Limitations: no limitations History of Present Illness HPI Narrative: Patient is a very nice 54-year-old female who presents here for evaluation of a will described weakness. She has multiple complaints, but from the best I can figure, the headaches which have been going on for months, along with feeling of unsteadiness when she sits up or moves her head, she also overall feels weak, admits to me she missed her appointment for her regular transfusion last week. She does not have any numbness or tingling or weakness in the hands or the feet, no thunderclap presentation to her headaches, she takes approximately 3 g daily divided doses of Tylenol. She also feels that her vision is off, in that she has some blurriness of her vision, that comes and goes. She has not had her eyes checked. She is here today with her . She does have a history of heart related issues, but is doing quite well with that, lost a lot a water weight, and has says a history of right-sided heart failure, with what sounds like valvular issues. She is transfusion dependent for her myelofibrosis. No fevers chills or sweats denies any nausea vomiting fact she tells me she is hungry. History of chronic constipation. History of elevated body weight then also diabetes of which she takes terzepatide which is only recently been started. No history of chest pain shortness of breath, Related Data Home Medications ?Medication ?Instructions ?Recorded ?Confirmed acetaminophen 500 mg capsule 500 - 1,000 mg PO Q6H PRN 01/02/22 09/01/24 allopurinol 300 mg tablet 300 mg PO QDAY 01/02/22 09/01/24 sodium bicarbonate 1,650 mg-citric 1 tab PO PRN 01/17/22 09/01/24 acid 1,000 mg effervescent tablet ([place] Heartburn) hydroxyurea 500 mg capsule (Hydrea) 500 mg PO BID 05/07/22 09/01/24 polyethylene glycol 3350 17 17 g PO BID PRN constipation 05/07/22 09/01/24 gram/dose oral powder (Miralax) cannabis 1 cap PO 05/21/22 08/23/24 sildenafil (pulm.hypertension) 20 20 mg PO TID 09/23/23 10/05/24 mg tablet Held on 10/05/24. Instructions: won't fill diphenhydramine 25 1 tab PO QHS PRN 11/18/23 09/01/24 mg-acetaminophen 500 mg tablet (Tylenol PM Extra Strength) sennosides 8.6 mg tablet (senna) See Rx Instructions .Route 12/12/23 09/01/24 .COMPLEX PRN constipation torsemide 20 mg tablet 80 mg PO BID 08/23/24 09/01/24 sotatercept-csrk 45 mg mg subcut 01/07/25 01/07/25 subcutaneous kit (Winrevair) tirzepatide (weight loss) 2.5 mg subcut 01/07/25 01/07/25 mg/0.5 mL subcutaneous pen injector (Zepbound) Previous Rx's ?Medication ?Instructions ?Recorded omeprazole 20 mg capsule,delayed 20 mg PO QDAY #30 caps 11/11/23 release sertraline 100 mg tablet 100 mg PO Q24H #90 tabs 08/23/24 clonazepam 0.5 mg tablet 0.5 mg PO BID PRN anxiety #30 tabs 01/07/25 morphine 15 mg tablet,extended 15 mg PO Q12H pain #60 tabs 02/03/25 release morphine 30 mg tablet,extended 30 mg PO Q12H #60 tabs 02/03/25 release oxycodone 5 mg capsule 5 mg PO Q8H PRN pain #60 caplets 02/03/25 Allergies Allergy/AdvReac Type Severity Reaction Status Date / Time No Known Drug Allergies Allergy Verified 11/12/24 08:10 Review of Systems Status of ROS: Reports: 10 or more systems reviewed and unremarkable except as noted in History and below PFSH PFS Surgical History History of tonsillectomy and adenoidectomy ?Z90.89 - Acquired absence of other organs (ICD-10) 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) ?Z90.81 - Acquired absence of spleen (ICD-10) Social History What is your current living situation?: I presently have a place to live Problems where you live: pests, such as bugs, ants, or mice In the past 12 months, utilities in danger of being shut off: no In past 12 months, lack of transportation kept you from medical appts, meetings, work, or getting things needed for daily living: no In the past 12 mos, have been you worried that your food would run out before you had money to buy more?: never true How often does anyone, including family, friends and others, physically hurt you: never How often does anyone, including family, friends and others, insult or talk down to you: never How often does anyone, including family, friends and others, threaten you with harm: never How often does anyone, including family, friends and others, scream or curse at you: never Health Related Social Needs: Inadequate housing (Z59.1) Exam Narrative: Exam Narrative: On examination in room 2 she is in no apparent distress she is pleasant and alert her vital signs all look relatively normal. Speaking to me normally pupils equal round reactive to light there is no scleral icterus redness TMs are normal oropharynx normal there is no adenopathy anterior posterior chains, her neck is supple, she moves all extremities independently and well. Cranial nerves 3-12 are normal, and I did he checks she has some bilateral 2 beats of horizontal nystagmus. Chest is good air entry bilateral with no wheezing crackles noted heart sounds are normal, her abdomen is soft and obese there is no guarding no organomegaly moves all extremities independently well, proximal and distal muscle strength is checked and normal she is right-hand dominant, fingers nose testing and heel-langley testing is normal. Very small amount of 1+ edema to pretibial region, skin reveals no petechiae rashes Const: Vital Signs, click to edit/add: Vital Signs - 24 hr 02/14/25 09:05 02/14/25 09:18 02/14/25 10:30 Temperature 97.3 F L Pulse Rate 71 Pulse Rate [Pulse Oximeter] 80 Respiratory Rate 18 22 Blood Pressure 104/58 L Blood Pressure [Ri ght Upper Arm] 102/33 L Pulse Oximetry 98 94 95 Oxygen Delivery Me thod Room Air 02/14/25 11:00 02/14/25 11:30 08/04/25 12:30 Temperature Pulse Rate 73 61 71 Pulse Rate [Pulse Oximeter] Respiratory Rate 16 12 23 Blood Pressure 101/60 111/49 L 104/57 L Blood Pressure [Ri ght Upper Arm] Pulse Oximetry 93 96 90 Oxygen Delivery Me thod 02/14/25 12:30 Temperature Pulse Rate 74 Pulse Rate [Pulse Oximeter] Respiratory Rate 13 Blood Pressure 104/67 Blood Pressure [Ri ght Upper Arm] Pulse Oximetry 97 Oxygen Delivery Me thod Course Course ED Course: She improved throughout her course here she was able to eat, and felt well. Vertigo resolve, she did never had any chest pain shortness of breath, she has a known problem with right-sided ventricular heart failure, her troponin was negative here. Even though she has the abnormality an EKG, there was no evidence of any acute problems. Her headaches, are chronic and longstanding this may be rebound in nature, her head CT was done today was reassuring. She does sound like she has benign peripheral vertigo, given what I am seeing on examination as this is very much dependent on her moving around given the fact that she also has very low hemoglobin, she would benefit from a transfusion. I did speak to Hematology at [place] where she gets her care, the on-call field return repairer said that he thinks that she should get 2 units of leukocyte poor, her radiated cells, were able to set this up for tomorrow. She was very comfortable with this plan. She will return if further signs symptoms of worsening and we did make her follow-up appointment with her primary care physician. Vital Signs Vital signs: Initial Vital Signs Temperature 97.3 F L 02/14/25 09:05 Temperature Source Temporal Artery Scan 02/14/25 09:05 Pulse Rate 80 02/14/25 09:05 Respiratory Rate 18 02/14/25 09:05 Blood Pressure 102/33 L 02/14/25 09:05 Blood Pressure Mean 56 L 02/14/25 09:05 Blood Pressure Position Supine 02/14/25 09:05 Pulse Oximetry 98 02/14/25 09:05 Oxygen Delivery Method Room Air 02/14/25 09:05 Vital Signs Temperature 97.3 F L 02/14/25 09:05 Pulse Rate 80 02/14/25 09:05 Respiratory Rate 18 02/14/25 09:05 Blood Pressure 102/33 L 02/14/25 09:05 Pulse Oximetry 98 02/14/25 09:05 Oxygen Delivery Method Room Air 02/14/25 09:05 Temperature 97.3 F L 02/14/25 09:05 Pulse Rate 74 02/14/25 12:30 Respiratory Rate 13 02/14/25 12:30 Blood Pressure 104/67 02/14/25 12:30 Pulse Oximetry 97 02/14/25 12:30 Oxygen Delivery Method Room Air 02/14/25 09:05 Medications Administered Medications: Discontinued Medications Generic Name Dose Route Start Last Admin Trade Name Jacky PRN Reason Stop Dose Admin Lorazepam 0.5 mg 02/14/25 09:19 02/14/25 10:03 Lorazepam 0.5 Mg Tablet PO 02/14/25 09:20 0.5 mg ONCE ONE Administration MDM - Weakness MDM Narrative Medical decision making narrative: Life-threatening differential diagnosis considered include stroke, coronary artery disease, pneumonia, and heart failure. Other differential diagnosis include but are not limited to electrolyte imbalances, anemia, medication reactions, and urinary tract infection Life-threatening differential diagnosis include subarachnoid hemorrhage, meningitis, encephalitis, carbon monoxide poisoning, and intracerebral hemorrhage. Other differential diagnosis include but not limited to migraine, cluster headache, tension headache, [employer] vasculitis, mass lesion, temporal arteritis, click acute closed angle glaucoma, septal and trigeminal neuralgia, sinusitis, closed head injury, and stroke Life-threatening differential diagnosis considered include, CVA, other differential diagnosis include BPPV, labyrinthitis, Meniere's disease, vestibular neuronitis, migraine, multiple sclerosis, otitis media, viral syndrome as well as other etiologies Lab Data Attestation: I reviewed the patient's lab results. Labs: Lab Results 02/14/25 02/14/25 Range/Units 09:20 09:54 WBC 15.86 H (4.50-11.00) K/uL Corrected WBC 14.96 H (4.50-11.00) K/UL RBC 2.16 L (4.00-5.20) m/uL Hgb 6.3 L* (12.0-16.0) gm/dL Hct 19.6 L (33.0-51.0) % MCV 91 (80-100) fL MCH 29 (26-34) pg MCHC 32 (32-36) gm/dL RDW Coeff of Hai 17.7 H (11.5-15.5) % Plt Count 286 (140-440) K/uL Neut % (Auto) 58.6 (42.0-72.0) % Lymph % (Auto) 15.8 L (20-44) % [place] % (Auto) 6.9 (0.0-11.0) % Eos % (Auto) 0.1 (0.0-7.0) % Baso % (Auto) 3.5 H (0.0-3.0) % Neut # (Auto) 8.80 H (1.7-7.0) K/uL Lymph # (Auto) 2.40 (0.90-2.90) K/uL [place] # (Auto) 1.00 H (0.00-0.90) K/UL Eos # (Auto) 0.00 (0.00-0.50) K/uL Baso # (Auto) 0.50 H (0.00-0.30) K/uL Abs Immat Gran (auto) 2.30 H (0.00-0.30) K/uL Imm/Tot Granulo (auto) 15.1 % INR 1.02 (0.91-1.10) APTT 33 (23-33) Seconds Sodium 137 (135-149) mmol/L Potassium 3.4 L (3.6-5.1) mmol/L Chloride 101 (96-114) mmol/L Carbon Dioxide 28 (20-32) mmol/L Anion Gap 8 (7-15) mEq/L BUN 22 (7-30) mg/dL Creatinine 0.8 (0.5-1.5) mg/dL Estimated Creat Clear 76.36 Estimated GFR 86 ml/min Glucose 153 H (60-115) mg/dL Calcium 9.6 (8.4-10.6) mg/dL Magnesium 2.6 (1.5-2.6) mg/dL NT-Pro-B Natriuret Pep 900 H (See Note) pg/mL POC Glucose 170 H (60-115) mg/dl POC Troponin I 0.01 (0.01-0.04) ng/ml Imaging Data CT scan - head: Attestation: I have reviewed the pertinent imaging results. My impression: No evidence of anything acute. Radiologist's impression: [facility] [address] [place] [address] Diagnostic Imaging Report Patient: Jennifer Dobbs MR#: [id number] : 1970 Acct:[id number] Loc: ED Service Date: 02/14/[address]: Ordering Physician: Jorge L Estrella M.D. Date of Service: 02/14/25 Procedure(s): CT head/brain wo con Accession Number(s): [id number] cc: Meli Hernandez M.D.; Jorge L Estrella M.D.~ For Patients: As a result of the Cures Act, medical imaging exams and procedure reports are released immediately into your electronic medical record. You may view this report before your referring provider. If you have questions, please contact your health care provider. INDICATION: Dizziness and vertigo. COMPARISON: None. TECHNIQUE: CT of the brain / head without intravenous contrast. Multiplanar axial, coronal, and sagittal reformats were reconstructed. FINDINGS: No intracranial hemorrhage. Normal appearance of the white matter. No acute or subacute cortically based infarct. No cerebral edema. No mass or mass effect. Normal ventricles. No skull fractures. No worrisome focal bone lesion. Developmentally underpneumatized mastoids. No mastoid effusion. The middle ears are clear. Paranasal sinuses included in the field of view have some mucoceles in the right maxillary sinus but no mucosal thickening. IMPRESSION: Normal head CT. Please note that all CT scans at this facility use dose modulation, iterative reconstruction, and/or weight-based dosing when appropriate to reduce radiation dose to as low as reasonably achievable. Dictated by Otilia Barcenas MD @ 02/14/2025 9:51:10 AM (Electronically Signed) ECG Data Attestation: I personally reviewed and interpreted this ECG as follows: ECG interpretation date: 02/14/25 Interpretation: EKG shows normal sinus rhythm ventricular rate 76, T-wave inversion is noted across the entire precordial leads. In also inferiorly. She was flat in the previous EKG of 05/04. But in comparison the new EKG from 07/21/2024 is normal. Discharge Plan Discharge Clinical Impression: Anemia, Myelofibrosis, Vertigo, Chronic headaches Patient Disposition: Home w/ Parent or Adult Condition: Improved Instructions: Vertigo (DC), Acute Headache (ED), Dizziness (ED), Anemia (ED) Additional Instructions: Recommend home, follow-up tomorrow for blood we have scheduled this with [facility], follow-up appointment with your primary care to discuss both vertigo, and headaches, along with the diabetes. Return here if increasing symptoms. Please go to the [facility] on 02/15 with a 9am arrival time to receive blood. Follow up appointment is scheduled at the [facility] on 02/17 with a 2:30pm arrival time. If you have any questions, please call [phone]. Activity Level: Light activity Prescriptions: No Action hydroxyurea [Hydrea] 500 mg capsule 500 mg PO BID polyethylene glycol 3350 [Miralax] 17 gram/dose powder 17 g PO BID PRN (Reason: constipation) Patient Comments: once in a great while omeprazole 20 mg capsule,delayed release(DR/EC) 20 mg PO QDAY Qty: 30 0RF sertraline 100 mg tablet 100 mg PO Q24H Qty: 90 3RF cannabis 1 cap PO Tylenol PM Extra Strength 25-500 mg tablet 1 tab PO QHS PRN Zepbound 2.5 mg/0.5 mL pen injector subcut Patient Comments: [NO ORIGINAL SIG] Winrevair 45 mg kit subcut Patient Comments: [NO ORIGINAL SIG] clonazepam 0.5 mg tablet 0.5 mg PO BID PRN (Reason: anxiety) Qty: 30 0RF sildenafil (pulm.hypertension) 20 mg tablet 20 mg PO TID sennosides [senna] 8.6 mg tablet See Rx Instructions .ROUTE .COMPLEX PRN (Reason: constipation) Rx Instructions: TAKE 1 TABLET BY MOUTH TWICE DAILY PRN; torsemide 20 mg tablet 80 mg PO BID Rx Instructions: Appt needed prior to next refill. allopurinol 300 mg tablet 300 mg PO QDAY Patient Comments: TAKE 1 TABLET BY MOUTH DAILY acetaminophen 500 mg capsule 500 - 1,000 mg PO Q6H PRN Rx Instructions: Max of 4000mg in 24 hours [place] Heartburn 1,650-1,000 mg tablet, effervescent 1 tab PO PRN Rx Instructions: dissolved in 4 ounces of water morphine 30 mg tablet extended release 30 mg PO Q12H Qty: 60 0RF Rx Instructions: total 45 mg twice daily morphine 15 mg tablet extended release 15 mg PO Q12H Qty: 60 0RF oxycodone 5 mg capsule 5 mg PO Q8H PRN (Reason: pain) Qty: 60 0RF Follow Up/Referrals: Meli Hernandez MD [Primary Care Provider, Internal Medicine] Stand Alone Forms: My[facility] Info Instructions
[2025-02-14 12:30] VITALS: BP 104/57; BP 104/67; PULSE 71; PULSE 74; RESP 13; RESP 23; O2SAT 90; O2SAT 97
[2025-02-14 18:57] LABS: Slide Review Acceptable Review (Acceptable)
== END 2025-02-14 12:58 | disposition home or self-care (01) ==
PROVIDERS: Emergency Provider Family Medicine; PCP Internal Medicine
DX: D64.9 Anemia, unspecified (principal); D75.81 Myelofibrosis; R55 Syncope and collapse; R51.9 Headache, unspecified
CPT/HCPCS: 36415; 70450; 80048; 81001; 82947; 83735; 83880; 84484; 85025; 85610; 85730; 93005; 94761; 99284; 99285; A9270

== ENCOUNTER 2025-02-24 10:00 | Outpatient (RCR) | payer MEDICARE, MEDICAID, SELFPAY ==
[2024-09-07 12:03] LABS: Hematocrit 24.0 % (33.0-51.0); Immature Granulocytes Pct Auto 14.8 %; Mean Corpuscular HGB Conc 30 gm/dL (32-36); Mean Corpuscular Hemoglobin 28 pg (26-34); Mean Corpuscular Volume 91 fL (80-100); RDW Coefficient of Variation % 19.2 % (11.5-15.5); Red Blood Count 2.63 m/uL (4.00-5.20)
[2024-09-07 12:42] LABS: Hemoglobin* 7.3 gm/dL (12.0-16.0); Immature Granulocytes Abs Auto 4.30 K/uL (0.00-0.30); Lymphocytes Absolute Auto 4.20 K/uL (0.90-2.90); Slide Review Reflex Yes; White Blood Count* 42.18 K/uL (4.50-11.00)
[2024-09-07 13:08] LABS: Slide Review Acceptable Review (Acceptable)
[2024-09-08] VITALS (7 sets, daily range): BP systolic 86–108; BP diastolic 37–65; PULSE 71–83; RESP 18; TEMP 35.8–36.8; O2SAT 89–95
[2024-09-16 11:45] LABS: Hematocrit 23.6 % (33.0-51.0); Immature Granulocytes Pct Auto 19.4 %; Mean Corpuscular HGB Conc 31 gm/dL (32-36); Mean Corpuscular Hemoglobin 28 pg (26-34); Mean Corpuscular Volume 92 fL (80-100); RDW Coefficient of Variation % 19.4 % (11.5-15.5); Red Blood Count 2.58 m/uL (4.00-5.20)
[2024-09-16 12:07] LABS: Immature Granulocytes Abs Auto 4.70 K/uL (0.00-0.30); Lymphocytes Absolute Auto 4.90 K/uL (0.90-2.90)
[2024-09-16 12:09] LABS: Hemoglobin* 7.3 gm/dL (12.0-16.0); Slide Review Reflex Yes; White Blood Count* 37.10 K/uL (4.50-11.00)
[2024-09-16 12:10] LABS: Slide Review Acceptable Review (Acceptable)
[2024-09-17 11:58] VITALS: BP 101/53; PULSE 99; RESP 18; TEMP 36.7; O2SAT 93
[2024-09-17 12:16] VITALS: BP 109/52; PULSE 71; RESP 18; TEMP 36; O2SAT 91
[2024-09-17 12:50] VITALS: BP 113/58; PULSE 85; RESP 18; TEMP 36.3; O2SAT 93
[2024-09-17 13:16] VITALS: BP 114/44; PULSE 79; RESP 18; TEMP 36.4; O2SAT 94
[2024-09-17 13:46] VITALS: BP 121/59; PULSE 85; RESP 18; TEMP 36; O2SAT 90
[2024-09-17 14:23] VITALS: BP 111/61; PULSE 80; RESP 18; TEMP 36.9; O2SAT 94
[2024-09-23 11:37] LABS: Hematocrit 23.4 % (33.0-51.0); Mean Corpuscular HGB Conc 31 gm/dL (32-36); Mean Corpuscular Hemoglobin 28 pg (26-34); Mean Corpuscular Volume 91 fL (80-100); RDW Coefficient of Variation % 19.5 % (11.5-15.5); Red Blood Count 2.58 m/uL (4.00-5.20)
[2024-09-23 12:56] LABS: Hemoglobin* 7.3 gm/dL (12.0-16.0); Lymphocytes Absolute Auto 5.70 K/uL (0.90-2.90); White Blood Count* 35.47 K/uL (4.50-11.00)
[2024-09-23 12:57] LABS: Immature Granulocytes Abs Auto 3.50 K/uL (0.00-0.30); Immature Granulocytes Pct Auto 16.0 %; Slide Review Reflex Yes
[2024-09-23 12:58] LABS: Slide Review Acceptable Review (Acceptable)
[2024-09-24 09:22] VITALS: BP 116/67; PULSE 88; RESP 18; TEMP 36.4; O2SAT 97
[2024-09-24 09:42] VITALS: BP 108/67; PULSE 82; RESP 16; TEMP 36.6; O2SAT 97
[2024-09-24 10:20] VITALS: BP 113/67; PULSE 94; RESP 18; TEMP 36.6; O2SAT 94
[2024-09-24 10:42] VITALS: BP 100/58; PULSE 72; RESP 18; TEMP 36.6; O2SAT 93
[2024-09-24 11:26] VITALS: BP 108/56; PULSE 76; RESP 16; TEMP 36.8; O2SAT 93
[2024-09-24 12:00] VITALS: BP 103/61; PULSE 74; RESP 16; TEMP 36.7; O2SAT 93
[2024-09-30 12:03] LABS: Hematocrit 24.9 % (33.0-51.0); Immature Granulocytes Pct Auto 18.7 %; Mean Corpuscular HGB Conc 31 gm/dL (32-36); Mean Corpuscular Hemoglobin 28 pg (26-34); Mean Corpuscular Volume 90 fL (80-100); RDW Coefficient of Variation % 19.1 % (11.5-15.5); Red Blood Count 2.76 m/uL (4.00-5.20)
[2024-09-30 12:26] LABS: Hemoglobin* 7.7 gm/dL (12.0-16.0); Immature Granulocytes Abs Auto 4.50 K/uL (0.00-0.30); Lymphocytes Absolute Auto 5.10 K/uL (0.90-2.90); Slide Review Reflex Yes; White Blood Count* 40.33 K/uL (4.50-11.00)
[2024-09-30 12:27] LABS: Slide Review Acceptable Review (Acceptable)
[2024-10-04 12:27] LABS: Hematocrit 22.6 % (33.0-51.0); Immature Granulocytes Pct Auto 20.4 %; Mean Corpuscular HGB Conc 31 gm/dL (32-36); Mean Corpuscular Hemoglobin 28 pg (26-34); Mean Corpuscular Volume 89 fL (80-100); RDW Coefficient of Variation % 19.0 % (11.5-15.5); Red Blood Count 2.53 m/uL (4.00-5.20)
[2024-10-04 13:01] LABS: Hemoglobin* 7.0 gm/dL (12.0-16.0); Immature Granulocytes Abs Auto 5.20 K/uL (0.00-0.30); Lymphocytes Absolute Auto 4.70 K/uL (0.90-2.90); Slide Review Reflex Yes; White Blood Count* 42.48 K/uL (4.50-11.00)
[2024-10-05] VITALS (8 sets, daily range): BP systolic 104–123; BP diastolic 50–80; PULSE 74–86; RESP 18–20; TEMP 36.2–36.7; O2SAT 91–100
[2024-10-05 02:26] LABS: Slide Review Acceptable Review (Acceptable)
[2024-10-14 11:53] LABS: Hematocrit 22.5 % (33.0-51.0); Mean Corpuscular HGB Conc 31 gm/dL (32-36); Mean Corpuscular Hemoglobin 27 pg (26-34); Mean Corpuscular Volume 89 fL (80-100); RDW Coefficient of Variation % 18.7 % (11.5-15.5); Red Blood Count 2.53 m/uL (4.00-5.20)
[2024-10-14 12:43] LABS: Hemoglobin* 6.9 gm/dL (12.0-16.0); Lymphocytes Absolute Auto 2.20 K/uL (0.90-2.90); White Blood Count* 43.42 K/uL (4.50-11.00)
[2024-10-14 12:44] LABS: Immature Granulocytes Abs Auto 4.00 K/uL (0.00-0.30); Immature Granulocytes Pct Auto 18.0 %; Slide Review Reflex Yes
[2024-10-14 14:53] LABS: Slide Review Acceptable Review (Acceptable)
[2024-10-15] VITALS (8 sets, daily range): BP systolic 97–113; BP diastolic 53–72; PULSE 73–85; RESP 16–18; TEMP 35.8–36.7; O2SAT 94–98
[2024-10-21 10:03] LABS: Hematocrit 25.3 % (33.0-51.0); Immature Granulocytes Pct Auto 21.1 %; Mean Corpuscular HGB Conc 31 gm/dL (32-36); Mean Corpuscular Hemoglobin 27 pg (26-34); Mean Corpuscular Volume 89 fL (80-100); RDW Coefficient of Variation % 18.9 % (11.5-15.5); Red Blood Count 2.86 m/uL (4.00-5.20)
[2024-10-21 10:33] LABS: Hemoglobin* 7.8 gm/dL (12.0-16.0); Immature Granulocytes Abs Auto 5.40 K/uL (0.00-0.30); Lymphocytes Absolute Auto 4.80 K/uL (0.90-2.90); Slide Review Reflex Yes; White Blood Count* 39.66 K/uL (4.50-11.00)
[2024-10-21 10:34] LABS: Slide Review Acceptable Review (Acceptable)
[2024-10-26 11:46] LABS: Hematocrit 23.2 % (33.0-51.0); Mean Corpuscular HGB Conc 31 gm/dL (32-36); Mean Corpuscular Hemoglobin 27 pg (26-34); Mean Corpuscular Volume 88 fL (80-100); RDW Coefficient of Variation % 19.1 % (11.5-15.5); Red Blood Count 2.63 m/uL (4.00-5.20)
[2024-10-26 12:18] LABS: White Blood Count* 44.24 K/uL (4.50-11.00)
[2024-10-26 12:19] LABS: Slide Review Reflex Yes
[2024-10-26 12:20] LABS: Slide Review Req Man Differential (Acceptable)
[2024-10-26 12:21] LABS: Immature Granulocytes Abs Auto 2.90 K/uL (0.00-0.30); Immature Granulocytes Pct Auto 15.0 %; Lymphocytes Absolute Auto 0.20 K/uL (0.90-2.90)
[2024-10-26 12:26] LABS: Total Cells Counted 100
[2024-10-26 12:27] LABS: Basophils Abs Manual 0.20 K/uL (0.00-0.30); Basophils Percent Manual 1.0 % (0.0-3.0); Eosinophils Absolute Manual 0.40 K/uL (0.00-0.50); Eosinophils Percent Manual 2.0 % (0.0-7.0); Lymphocytes Absolute Manual 0.20 K/uL (0.90-2.90); Lymphocytes Percent Manual 1.0 % (20.0-44.0); Metamyelocytes Absolute Manual 1.30 K/uL; Metamyelocytes Percent Manual 7.0 %; Monocytes Absolute Manual 0.80 K/uL (0.00-0.90); Monocytes Percent Manual 4.0 % (0-11); Myelocytes Absolute Manual 1.50 K/uL; Myelocytes Percent Manual 8.0 %; Neutrophils Absolute Manual 14.80 K/uL (1.70-7.00); Neutrophils Percent Manual 77.0 % (42.0-72.0)
[2024-10-26 12:28] LABS: Ovalocytes Few
[2024-10-26 12:30] LABS: Hemoglobin* 7.2 gm/dL (12.0-16.0)
[2024-10-27 08:38] VITALS: BP 102/45; PULSE 96; RESP 20; TEMP 36.1; O2SAT 92
[2024-10-27 09:11] VITALS: BP 104/64; PULSE 82; RESP 18; TEMP 36.1; O2SAT 94
[2024-10-27 09:33] VITALS: BP 100/63; PULSE 83; RESP 18; TEMP 36.3; O2SAT 94
[2024-10-27 10:01] VITALS: BP 103/65; PULSE 82; RESP 20; TEMP 36.3; O2SAT 93
[2024-10-27 10:38] VITALS: BP 104/53; PULSE 79; RESP 18; TEMP 36.3; O2SAT 92
[2024-10-27 11:07] VITALS: BP 102/65; PULSE 79; RESP 18; TEMP 36.3; O2SAT 96
[2024-11-04 11:46] LABS: Hematocrit 21.2 % (33.0-51.0); Immature Granulocytes Pct Auto 17.8 %; Mean Corpuscular HGB Conc 31 gm/dL (32-36); Mean Corpuscular Hemoglobin 27 pg (26-34); Mean Corpuscular Volume 88 fL (80-100); RDW Coefficient of Variation % 18.7 % (11.5-15.5); Red Blood Count 2.41 m/uL (4.00-5.20)
[2024-11-04 12:30] LABS: Hemoglobin* 6.6 gm/dL (12.0-16.0); Immature Granulocytes Abs Auto 4.30 K/uL (0.00-0.30); Lymphocytes Absolute Auto 4.40 K/uL (0.90-2.90); Slide Review Reflex Yes; White Blood Count* 36.37 K/uL (4.50-11.00)
[2024-11-04 12:32] LABS: Slide Review Acceptable Review (Acceptable)
[2024-11-05] VITALS (7 sets, daily range): BP systolic 94–113; BP diastolic 52–69; PULSE 77–103; RESP 18–22; TEMP 35.9–36.3; O2SAT 91–96
[2024-11-08 11:57] LABS: Hematocrit 23.4 % (33.0-51.0); Immature Granulocytes Pct Auto 22.1 %; Mean Corpuscular HGB Conc 32 gm/dL (32-36); Mean Corpuscular Hemoglobin 28 pg (26-34); Mean Corpuscular Volume 88 fL (80-100); RDW Coefficient of Variation % 18.7 % (11.5-15.5); Red Blood Count 2.67 m/uL (4.00-5.20)
[2024-11-08 12:29] LABS: Hemoglobin* 7.5 gm/dL (12.0-16.0); Immature Granulocytes Abs Auto 4.70 K/uL (0.00-0.30); Lymphocytes Absolute Auto 4.40 K/uL (0.90-2.90); Slide Review Reflex Yes; White Blood Count* 27.12 K/uL (4.50-11.00)
[2024-11-08 12:30] LABS: Slide Review Acceptable Review (Acceptable)
[2024-11-11 12:08] LABS: Hematocrit 22.7 % (33.0-51.0); Immature Granulocytes Pct Auto 24.7 %; Mean Corpuscular HGB Conc 31 gm/dL (32-36); Mean Corpuscular Hemoglobin 28 pg (26-34); Mean Corpuscular Volume 89 fL (80-100); RDW Coefficient of Variation % 19.9 % (11.5-15.5); Red Blood Count 2.55 m/uL (4.00-5.20)
[2024-11-11 12:38] LABS: Hemoglobin* 7.1 gm/dL (12.0-16.0); White Blood Count* 27.57 K/uL (4.50-11.00)
[2024-11-11 12:39] LABS: Immature Granulocytes Abs Auto 5.50 K/uL (0.00-0.30); Lymphocytes Absolute Auto 4.60 K/uL (0.90-2.90); Slide Review Reflex Yes
[2024-11-11 12:44] LABS: Slide Review Acceptable Review (Acceptable)
[2024-11-12] MEDS: ACETAMINOPHEN 325 MG TABLET 650 MG PO (08:25)
[2024-11-12 08:48] VITALS: BP 118/72; PULSE 82; RESP 18; TEMP 36.3; O2SAT 97
[2024-11-12 09:04] VITALS: BP 96/62; PULSE 79; RESP 18; TEMP 36.2; O2SAT 96
[2024-11-12 09:41] VITALS: BP 102/64; PULSE 74; RESP 18; TEMP 36.6; O2SAT 96
[2024-11-12 10:10] VITALS: BP 97/43; PULSE 83; RESP 18; TEMP 36.1; O2SAT 94
[2024-11-12 10:34] VITALS: BP 100/61; PULSE 73; RESP 18; TEMP 35.9; O2SAT 97
[2024-11-12 11:10] VITALS: BP 100/53; PULSE 80; RESP 18; TEMP 36.1; O2SAT 97
[2024-11-18 12:07] LABS: White Blood Count* 38.80 K/uL (4.50-11.00)
[2024-11-18 12:08] LABS: Hematocrit 24.4 % (33.0-51.0); Hemoglobin* 7.6 gm/dL (12.0-16.0); Lymphocytes Absolute Auto 5.80 K/uL (0.90-2.90); Mean Corpuscular HGB Conc 31 gm/dL (32-36); Mean Corpuscular Hemoglobin 28 pg (26-34); Mean Corpuscular Volume 91 fL (80-100); RDW Coefficient of Variation % 19.3 % (11.5-15.5); Red Blood Count 2.69 m/uL (4.00-5.20)
[2024-11-18 12:09] LABS: Immature Granulocytes Abs Auto 3.20 K/uL (0.00-0.30); Immature Granulocytes Pct Auto 11.0 %; Slide Review Acceptable Review (Acceptable); Slide Review Reflex Yes
[2024-11-25 09:38] LABS: Hematocrit 20.7 % (33.0-51.0); Immature Granulocytes Pct Auto 19.0 %; Mean Corpuscular HGB Conc 31 gm/dL (32-36); Mean Corpuscular Hemoglobin 29 pg (26-34); Mean Corpuscular Volume 93 fL (80-100); RDW Coefficient of Variation % 20.2 % (11.5-15.5); Red Blood Count 2.22 m/uL (4.00-5.20)
[2024-11-25 10:28] LABS: Immature Granulocytes Abs Auto 2.40 K/uL (0.00-0.30); Lymphocytes Absolute Auto 2.90 K/uL (0.90-2.90)
[2024-11-25 10:31] LABS: Hemoglobin* 6.4 gm/dL (12.0-16.0); Slide Review Reflex Yes; White Blood Count* 26.01 K/uL (4.50-11.00)
[2024-11-25 10:32] LABS: Slide Review Acceptable Review (Acceptable)
[2024-11-26] VITALS (7 sets, daily range): BP systolic 98–114; BP diastolic 54–64; PULSE 72–98; RESP 16–18; TEMP 35.9–36.4; O2SAT 93–97
[2024-11-30 10:59] LABS: Hematocrit 22.1 % (33.0-51.0); Mean Corpuscular HGB Conc 31 gm/dL (32-36); Mean Corpuscular Hemoglobin 28 pg (26-34); Mean Corpuscular Volume 90 fL (80-100); RDW Coefficient of Variation % 18.6 % (11.5-15.5); Red Blood Count 2.45 m/uL (4.00-5.20)
[2024-11-30 11:37] LABS: Lymphocytes Absolute Auto 3.70 K/uL (0.90-2.90)
[2024-11-30 11:38] LABS: Immature Granulocytes Abs Auto 3.10 K/uL (0.00-0.30); Immature Granulocytes Pct Auto 18.0 %
[2024-11-30 11:40] LABS: Hemoglobin* 6.9 gm/dL (12.0-16.0); Slide Review Reflex Yes; White Blood Count* 30.61 K/uL (4.50-11.00)
[2024-11-30 11:50] LABS: Slide Review Acceptable Review (Acceptable)
[2024-12-01] VITALS (7 sets, daily range): BP systolic 98–106; BP diastolic 52–67; PULSE 70–93; RESP 16–20; TEMP 35.9–36.5; O2SAT 94–99
[2024-12-08 09:49] LABS: Hematocrit 26.2 % (33.0-51.0); Hemoglobin* 8.1 gm/dL (12.0-16.0); Immature Granulocytes Abs Auto 5.30 K/uL (0.00-0.30); Immature Granulocytes Pct Auto 18.3 %; Mean Corpuscular HGB Conc 31 gm/dL (32-36); Mean Corpuscular Hemoglobin 29 pg (26-34); Mean Corpuscular Volume 93 fL (80-100); RDW Coefficient of Variation % 18.4 % (11.5-15.5); Red Blood Count 2.83 m/uL (4.00-5.20)
[2024-12-08 10:16] LABS: Lymphocytes Absolute Auto 7.20 K/uL (0.90-2.90); Slide Review Reflex Yes; White Blood Count* 28.98 K/uL (4.50-11.00)
[2024-12-08 12:00] LABS: Slide Review Acceptable Review (Acceptable)
[2024-12-15 10:48] LABS: Hematocrit 21.1 % (33.0-51.0); Immature Granulocytes Pct Auto 17.9 %; Mean Corpuscular HGB Conc 31 gm/dL (32-36); Mean Corpuscular Hemoglobin 29 pg (26-34); Mean Corpuscular Volume 93 fL (80-100); RDW Coefficient of Variation % 19.5 % (11.5-15.5); Red Blood Count 2.28 m/uL (4.00-5.20)
[2024-12-15 11:27] LABS: Hemoglobin* 6.6 gm/dL (12.0-16.0); Immature Granulocytes Abs Auto 4.00 K/uL (0.00-0.30); Lymphocytes Absolute Auto 6.20 K/uL (0.90-2.90); White Blood Count* 29.42 K/uL (4.50-11.00)
[2024-12-15 11:28] LABS: Slide Review Reflex Yes
[2024-12-15 11:32] LABS: Slide Review Acceptable Review (Acceptable)
--- NOTE | 2024-12-15 13:39 | ONC.NURNOTE ---
Patient here for labs today, when leaving they noted that they would contact us as their phones are not functioning. Attempted to contact patient as her hmg dropped significantly and wanted to determine if symptomatic or can wait until Friday as discussed. Unable to get through when attempted phone number in EMR. Scheduled patient around her other appointment on Friday, and will wait for call from patient and spouse to do assessment.
[2024-12-17] VITALS (7 sets, daily range): BP systolic 95–109; BP diastolic 55–70; PULSE 71–96; RESP 16–18; TEMP 36.2–36.7; O2SAT 91–99
[2024-12-21 10:06] LABS: Hematocrit 23.9 % (33.0-51.0); Immature Granulocytes Pct Auto 22.2 %; Mean Corpuscular HGB Conc 31 gm/dL (32-36); Mean Corpuscular Hemoglobin 29 pg (26-34); Mean Corpuscular Volume 91 fL (80-100); RDW Coefficient of Variation % 18.5 % (11.5-15.5); Red Blood Count 2.62 m/uL (4.00-5.20)
[2024-12-21 11:31] LABS: White Blood Count* 25.49 K/uL (4.50-11.00)
[2024-12-21 11:32] LABS: Hemoglobin* 7.5 gm/dL (12.0-16.0); Immature Granulocytes Abs Auto 3.80 K/uL (0.00-0.30); Lymphocytes Absolute Auto 3.60 K/uL (0.90-2.90); Slide Review Reflex Yes
[2024-12-21 11:39] LABS: Slide Review Acceptable Review (Acceptable)
[2024-12-23 09:28] LABS: Hematocrit 22.6 % (33.0-51.0); Immature Granulocytes Pct Auto 19.9 %; Mean Corpuscular HGB Conc 31 gm/dL (32-36); Mean Corpuscular Hemoglobin 29 pg (26-34); Mean Corpuscular Volume 92 fL (80-100); RDW Coefficient of Variation % 18.8 % (11.5-15.5); Red Blood Count 2.47 m/uL (4.00-5.20); White Blood Count* 24.81 K/uL (4.50-11.00)
[2024-12-23 09:59] LABS: Hemoglobin* 7.1 gm/dL (12.0-16.0); Immature Granulocytes Abs Auto 4.00 K/uL (0.00-0.30); Lymphocytes Absolute Auto 2.30 K/uL (0.90-2.90)
[2024-12-23 10:56] LABS: Slide Review Acceptable Review (Acceptable); Slide Review Reflex Yes
[2024-12-24 11:16] VITALS: BP 112/61; PULSE 95; RESP 12; TEMP 37.2; O2SAT 92
[2024-12-24 11:39] VITALS: BP 106/69; PULSE 78; RESP 16; TEMP 36.8; O2SAT 100
[2024-12-24 11:42] VITALS: BP 115/59; PULSE 77; RESP 16; TEMP 36.8; O2SAT 94
[2024-12-24 12:12] VITALS: BP 109/64; PULSE 78; RESP 16; TEMP 36.9; O2SAT 95
--- NOTE | 2024-12-24 14:21 | PC.NURSE ---
Pt. consent verified, crossmatched, and reported no past adverse blood product transfusion reactions .Pre- transfusion VS @ 1037 when pt. arrived were 99 degrees F, 92% O2, P 95, RR 18, BP 112/61. Pt. needed IV placement which delayed the start of the transfusion. Per pt. request, automatic cuff was left off between VS readings and RN set an alarm timer to track 15 minute and 30 minute intervals for VS. @ 1145, q15 minute interval into transfusion, VS were 98.3 degrees F, 100% O2, P 78, RR 16, BP 106/69. First q30 minute interval @ 1227, VS 98.5 degrees F, 94% O2, P 77, RR 16, BP 115/59. At the next q30 minute interval, @ 1315 the transfusion was complete. VS were 98.5 degrees F, 95% O2, P 78, RR 16, BP 109/64. Breath sounds clear pre and post transfusion. VS remained stable throughout transfusion and pt. had no reported side effects. 30 minutes Post- transfusion VS 98.6 degrees F, 97%, P 79, RR 14, BP 109/64. Pt. refused to stay for full hour post-transfusion. Due to pt. not having blood pressure cuff automated, at times interval times extended beyond 15 minute and 30 minute intervals per protocol. At end of transfusion, junior copywriter noted [employer] and [employer] TAR documentation times did not match. There is not an edit function within TAR. Nurse lawn service manager notified and an IT report sent. The VS times listed in this note are accurate.
[2024-12-30 11:43] LABS: Hematocrit 23.4 % (33.0-51.0); Immature Granulocytes Pct Auto 17.5 %; Mean Corpuscular HGB Conc 31 gm/dL (32-36); Mean Corpuscular Hemoglobin 29 pg (26-34); Mean Corpuscular Volume 93 fL (80-100); RDW Coefficient of Variation % 18.3 % (11.5-15.5); Red Blood Count 2.53 m/uL (4.00-5.20); White Blood Count* 21.33 K/uL (4.50-11.00)
[2024-12-30 11:49] LABS: Slide Review Reflex Yes
[2024-12-30 11:56] LABS: Hemoglobin* 7.3 gm/dL (12.0-16.0)
[2024-12-30 13:08] LABS: Immature Granulocytes Abs Auto 2.50 K/uL (0.00-0.30); Lymphocytes Absolute Auto 3.10 K/uL (0.90-2.90); Slide Review Acceptable Review (Acceptable)
[2024-12-31 12:14] VITALS: BP 99/57; PULSE 76; RESP 18; TEMP 35.6; O2SAT 95
[2024-12-31 12:32] VITALS: BP 105/56; PULSE 75; RESP 18; TEMP 36.3; O2SAT 93
[2024-12-31 13:02] VITALS: BP 99/59; PULSE 76; RESP 18; TEMP 35.8; O2SAT 99
[2024-12-31 13:35] VITALS: BP 99/52; PULSE 74; RESP 18; TEMP 35.9; O2SAT 91
[2024-12-31 14:05] VITALS: BP 95/59; PULSE 71; RESP 18; TEMP 35.9; O2SAT 93
[2024-12-31 14:35] VITALS: BP 99/63; PULSE 72; RESP 18; TEMP 35.9; O2SAT 97
[2025-01-05 11:45] LABS: Hematocrit 26.1 % (33.0-51.0); Hemoglobin* 8.2 gm/dL (12.0-16.0); Mean Corpuscular Hemoglobin 29 pg (26-34); Mean Corpuscular Volume 93 fL (80-100); Red Blood Count 2.81 m/uL (4.00-5.20); White Blood Count* 17.41 K/uL (4.50-11.00)
[2025-01-05 11:46] LABS: Mean Corpuscular HGB Conc 31 gm/dL (32-36); RDW Coefficient of Variation % 17.4 % (11.5-15.5)
[2025-01-05 12:57] LABS: Immature Granulocytes Pct Auto 15.0 %
[2025-01-05 12:58] LABS: Immature Granulocytes Abs Auto 1.80 K/uL (0.00-0.30); Lymphocytes Absolute Auto 2.80 K/uL (0.90-2.90); Slide Review Reflex Yes
[2025-01-05 12:59] LABS: Slide Review Acceptable Review (Acceptable)
[2025-01-13 10:03] LABS: Hematocrit 22.6 % (33.0-51.0); Immature Granulocytes Pct Auto 14.0 %; Mean Corpuscular HGB Conc 31 gm/dL (32-36); Mean Corpuscular Hemoglobin 29 pg (26-34); Mean Corpuscular Volume 93 fL (80-100); RDW Coefficient of Variation % 17.4 % (11.5-15.5); Red Blood Count 2.44 m/uL (4.00-5.20); White Blood Count* 14.93 K/uL (4.50-11.00)
[2025-01-13 10:41] LABS: Hemoglobin* 7.1 gm/dL (12.0-16.0); Immature Granulocytes Abs Auto 1.50 K/uL (0.00-0.30); Lymphocytes Absolute Auto 2.50 K/uL (0.90-2.90); Slide Review Reflex Yes
[2025-01-13 10:42] LABS: Slide Review Acceptable Review (Acceptable)
[2025-01-13 13:48] VITALS: BP 98/62; PULSE 92; RESP 20; TEMP 36.6; O2SAT 94
[2025-01-13 14:09] VITALS: BP 99/65; PULSE 80; RESP 20; TEMP 36.6; O2SAT 97
[2025-01-13 14:39] VITALS: BP 97/63; PULSE 86; RESP 20; TEMP 36.6; O2SAT 95
[2025-01-13 15:09] VITALS: BP 96/61; PULSE 74; RESP 20; TEMP 36.3; O2SAT 92
[2025-01-13 15:39] VITALS: BP 101/65; PULSE 79; RESP 16; TEMP 36.3; O2SAT 92
[2025-01-13 16:29] VITALS: BP 101/65; PULSE 90; RESP 20; TEMP 36.5; O2SAT 93
[2025-01-24 11:05] LABS: Hematocrit 20.3 % (33.0-51.0); Immature Granulocytes Pct Auto 19.1 %; Mean Corpuscular HGB Conc 32 gm/dL (32-36); Mean Corpuscular Hemoglobin 28 pg (26-34); Mean Corpuscular Volume 89 fL (80-100); RDW Coefficient of Variation % 17.4 % (11.5-15.5); Red Blood Count 2.27 m/uL (4.00-5.20); White Blood Count* 16.17 K/uL (4.50-11.00)
[2025-01-24 11:31] LABS: Immature Granulocytes Abs Auto 2.60 K/uL (0.00-0.30); Lymphocytes Absolute Auto 2.60 K/uL (0.90-2.90); Slide Review Reflex No
[2025-01-24 11:33] LABS: Hemoglobin* 6.4 gm/dL (12.0-16.0)
[2025-01-25 13:40] VITALS: BP 121/74; PULSE 91; RESP 18; TEMP 35.9; O2SAT 92
[2025-01-25 14:05] VITALS: BP 100/63; PULSE 79; RESP 18; TEMP 36; O2SAT 97
[2025-01-25 14:34] VITALS: BP 100/63; PULSE 79; RESP 18; TEMP 36; O2SAT 92
[2025-01-25 15:07] VITALS: BP 100/62; PULSE 69; RESP 18; TEMP 35.8; O2SAT 97
[2025-01-25 15:35] VITALS: BP 104/60; PULSE 69; RESP 18; TEMP 35.9; O2SAT 97
[2025-01-25 16:11] VITALS: BP 99/61; PULSE 77; RESP 18; TEMP 35.8; O2SAT 93
[2025-01-31 10:32] LABS: Hematocrit 21.8 % (33.0-51.0); Immature Granulocytes Pct Auto 19.5 %; Mean Corpuscular HGB Conc 32 gm/dL (32-36); Mean Corpuscular Hemoglobin 29 pg (26-34); Mean Corpuscular Volume 89 fL (80-100); RDW Coefficient of Variation % 17.5 % (11.5-15.5); Red Blood Count 2.44 m/uL (4.00-5.20); White Blood Count* 16.31 K/uL (4.50-11.00)
[2025-01-31 11:05] LABS: Hemoglobin* 7.0 gm/dL (12.0-16.0); Immature Granulocytes Abs Auto 2.60 K/uL (0.00-0.30); Lymphocytes Absolute Auto 2.40 K/uL (0.90-2.90)
[2025-01-31 11:10] LABS: Slide Review Reflex Yes
[2025-01-31 11:11] LABS: Slide Review Acceptable Review (Acceptable)
[2025-02-01] VITALS (7 sets, daily range): BP systolic 85–104; BP diastolic 44–69; PULSE 70–99; RESP 18; TEMP 35.9–36.3; O2SAT 92–98
[2025-02-07 09:22] LABS: Hematocrit 23.7 % (33.0-51.0); Immature Granulocytes Pct Auto 17.1 %; Mean Corpuscular HGB Conc 33 gm/dL (32-36); Mean Corpuscular Hemoglobin 29 pg (26-34); Mean Corpuscular Volume 90 fL (80-100); RDW Coefficient of Variation % 17.4 % (11.5-15.5); Red Blood Count 2.63 m/uL (4.00-5.20); White Blood Count* 13.88 K/uL (4.50-11.00)
[2025-02-07 10:03] LABS: Hemoglobin* 7.7 gm/dL (12.0-16.0)
--- NOTE | 2025-02-07 10:03 | ONC.NURNOTE ---
Called pt with hgb results. No transfusion required at this time. Pt will return to [facility] on for repeat labs.
[2025-02-07 10:04] LABS: Immature Granulocytes Abs Auto 2.20 K/uL (0.00-0.30); Lymphocytes Absolute Auto 2.80 K/uL (0.90-2.90); Slide Review Reflex Yes
[2025-02-07 10:07] LABS: Slide Review Acceptable Review (Acceptable)
[2025-02-15] VITALS (12 sets, daily range): BP systolic 94–115; BP diastolic 52–72; PULSE 72–105; RESP 16–18; TEMP 36.2–36.8; O2SAT 93–100
--- NOTE | 2025-02-15 14:07 | ONC.NURNOTE ---
Patient stated she had not taken her furosemide PO for a couple of days because she has not felt well. Talked with inside finisher about giving IV lasix. Patient refused and brought her PO lasix and took in between units today. Talked about signs and symptoms of fluid overload.
--- NOTE | 2025-02-15 14:30 | ONC.NURNOTE ---
Patient refused to stay for the 60min post infusion monitoring. Did agree to 30min of monitoring.
[2025-02-24 09:49] LABS: Hematocrit 26.3 % (33.0-51.0); Hemoglobin* 8.5 gm/dL (12.0-16.0); Immature Granulocytes Pct Auto 10.6 %; Mean Corpuscular HGB Conc 32 gm/dL (32-36); Mean Corpuscular Hemoglobin 30 pg (26-34); Mean Corpuscular Volume 92 fL (80-100); RDW Coefficient of Variation % 17.1 % (11.5-15.5); Red Blood Count 2.86 m/uL (4.00-5.20); White Blood Count* 13.91 K/uL (4.50-11.00)
[2025-02-24 10:57] LABS: Immature Granulocytes Abs Auto 1.30 K/uL (0.00-0.30); Lymphocytes Absolute Auto 2.30 K/uL (0.90-2.90); Slide Review Reflex Yes
[2025-02-24 10:59] LABS: Slide Review Acceptable Review (Acceptable)
--- NOTE | 2025-02-24 11:18 | ONC.NURNOTE ---
Called pt's with hgb of 8.5. No blood transfusion tomorrow.
== END 2025-02-28 23:59 | disposition home or self-care (01) ==
LOC: CCIC 10:00
PROVIDERS: Internal Medicine Cardiovascular Disease; PCP Internal Medicine; Referring Provider Internal Medicine; Visit Provider Clinical Nurse Specialist
DX: D64.9 Anemia, unspecified (principal); D75.81 Myelofibrosis
CPT/HCPCS: 36415; 36430; 77063; 77067; 85025; 86850; 86900; 86901; 86922; G0463; A9270; P9016

== ENCOUNTER 2025-03-07 10:26 | Outpatient (CLI) | payer MEDICARE, MEDICAID, SELFPAY ==
--- NOTE | 2025-03-07 10:15 | CRLHL7_ITS ---
For Patients: As a result of the Century Cures Act, medical imaging exams and procedure reports are released immediately into your electronic medical record. You may view this report before your referring provider. If you have questions, please contact your health care provider. Indication: Neck pain. Technique: Multisequence multiplanar MRI of the cervical spine without the use of intravenous contrast. Comparison: None available. Findings: Normal vertebral alignment, stature, and intrinsic marrow signal intensity. Multilevel disc desiccation and height loss most pronounced from C5-C7. The cervical spinal cord is normal in signal intensity. The prevertebral soft tissues are unremarkable. C2-C3 and C3-C4: No significant spinal canal or neural foraminal stenosis. C4-C5: Broad central disc protrusion effacing the ventral thecal sac and resulting in mild-moderate spinal canal stenosis. Mild facet joint arthrosis. No significant neural foraminal narrowing. C5-C6: Posterior disc osteophyte complex with mild-moderate resultant spinal canal stenosis. Mild right and moderate left neural foraminal narrowing associated with uncovertebral and facet joint arthrosis. C6-C7: Posterior disc osteophyte complex with superimposed left paracentral disc protrusion (series 5, image 28). Mild-moderate resultant spinal canal stenosis. Mild right and moderate left neural foraminal narrowing associated with uncovertebral arthrosis. C7-T1: Mild facet joint arthrosis. No significant spinal canal or neural foraminal stenosis. Impression: 1. Multilevel disc desiccation and height loss most pronounced from C5-C7. 2. At C4-C5, central disc protrusion exerting questionable mass effect on the ventral spinal cord and resulting in mild-moderate spinal canal stenosis. 3. At C5-C6, mild-moderate spinal canal stenosis and moderate left neural foraminal narrowing. 4. At C6-C7, left paracentral disc protrusion, mild-moderate resultant spinal canal stenosis, and moderate left neural foraminal narrowing. Dictated by Alejandro Chi MD @ 03/07/2025 1:14:53 PM (Electronically Signed)
== END 2025-03-07 10:27 | disposition home or self-care (01) ==
LOC: MRI 10:27
PROVIDERS: PCP Internal Medicine; Visit Provider Internal Medicine
DX: M50.221 Other cervical disc displacement at C4-C5 level (principal); M50.222 Other cervical disc displacement at C5-C6 level; M50.223 Other cervical disc displacement at C6-C7 level; G89.29 Other chronic pain; D64.9 Anemia, unspecified; D75.81 Myelofibrosis
CPT/HCPCS: 72141

== ENCOUNTER 2025-04-18 10:15 | Outpatient (RCR) | payer MEDICARE, MEDICAID, SELFPAY ==
--- NOTE | 2025-04-07 13:23 | PT.OPE ---
PT [place] [facility] Eval PT [facility] Eval Start: 04/07/25 10:38 Freq: Status: Active Protocol: Document 04/07/25 13:19 CJT (Rec: 04/07/25 13:22 CJT [id number]) E-signed By [facility] Physical Therapy Outpatient Evaluation Insurance Information Recert Due Date 07/06/25 Insurance Name Medicare B Medical Diagnosis Physical deconditioning Cervical radiculopathy Treating Diagnosis M54.12 - cervical radiculopathy R53.1 - generalized weakness Imaging Report 1. Multilevel disc desiccation and height loss most Information pronounced from C5-C7. 2. At C4-C5, central disc protrusion exerting questionable mass effect on the ventral spinal cord and resulting in mild-moderate spinal canal stenosis. 3. At C5-C6, mild-moderate spinal canal stenosis and moderate left neural foraminal narrowing. 4. At C6-C7, left paracentral disc protrusion, mild- moderate resultant spinal canal stenosis, and moderate left neural foraminal narrowing. Referring Jorge L Maher MD Subjective Preferred Name Jennifer Subjective Pt presents with complaints of neck pain. 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 Has taken 4-5 Tylenol this AM already. Is on morphine but not sure if it works. Is taking an anti -anxiety med but does not feel that it helps. Pt reports she also smokes cannabis all day but does not feel that it is effective in reducing her pain or anxiety anymore. Pt is very overwhelmed with her health issues the last 3-4 months. 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 Pt complains of dizzy spells and inability to move her neck. 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 I don't know when it started. Pts reports Jennifer is scheduling an injection with Dr. Hernandez in her neck. Pt reports headaches as well as trouble sleeping at night as she can only sleep on her R side and for short periods. Pain Comments 04/22 Current Work Status Unemployed Precautions Treatment Cervical spinal stenosis (Acute) Precautions/ M48.02 - Spinal stenosis, cervical region (ICD-10) Contraindications Right heart failure with reduced right ventricular function (Acute) followed at [facility], hospitalized and diuresed at [facility] I50.810 - Right heart failure, unspecified (ICD-10) Obstructive sleep apnea (Acute) Diagnosed at [facility] Summer 2023, severe sleep-related hypoxia and moderate to severe SANDEE worse during REM sleep, recommended to have BiPAP (didn't tolerate it) G47.33 - Obstructive sleep apnea (adult) (pediatric) ( ICD-10) Adenomatous colon polyp (Acute) 2 tubular adenomas removed by colonoscopy here 10/03, due again 5Y D12.6 - Benign neoplasm of colon, unspecified (ICD-10) Family history of colon cancer (Acute) Mother Z80.0 - Family history of malignant neoplasm of digestive organs (ICD-10) Pre-diabetes (Acute) Dxed 06/04, A1c 5.9% R73.03 - Prediabetes (ICD-10) Chronic prescription benzodiazepine use (Acute) started at the time of her diagnosis of myelofibrosis 2015 Z79.899 - Other residential (current) drug therapy (ICD- 10) Chronic prescription opiate use (Acute) started at the time of her diagnosis of myelofibrosis 2015 Z79.891 - halfway (current) use of opiate analgesic ( ICD-10) Obesity with body mass index 30 or greater (Acute) E66.9 - Obesity, unspecified (ICD-10) Gastroesophageal reflux disease (Acute) K21.9 - Gastro-esophageal reflux disease without esophagitis (ICD-10) Depression (Acute) F32.A - Depression, unspecified (ICD-10) Constipation (Acute) On chronic opioids, recent splenectomy, previous marijuana use now using medical cannibas K59.00 - Constipation, unspecified (ICD-10) Pulmonary hypertension (Acute) followed by [facility], per [facility] 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 Govea 07/03/23 who prescribedmomelotinib at that time D75.81 - Myelofibrosis (ICD-10) Chronic pain due to neoplasm (Acute) G89.3 - Neoplasm related pain (acute) (chronic) (ICD-10 ) Anxiety (Acute) sertraline started 2/25 with as needed clonazepam F41.9 - Anxiety disorder, unspecified (ICD-10) Tricuspid valve regurgitation (Acute) followed by [facility] I07.1 - Rheumatic tricuspid insufficiency (ICD-10) Therapy Limitations/ Not Limited Systems Review Objective Other/Pertinent Cervical ROM Objective Extension - 36 Flexion - 50 R/L Side Bend - 32/32 R/L Rotation - 56/74 Bilateral Shoulder AROM: can elevate approx 75 degrees, IR to T12 behind back *pt did elevate her arms much higher that 75 degrees when asked to complete other motions including touching the top of her head; complaints of pain were not consistent with shoulder AROM Bilateral Shoulder Strength - grossly 4/5 MMT for all; pts strength is inconsistent with testing - she is not able to indicate if weakness is due to pain, lack of understanding directions, etc. Palpation: pt reports tenderness/pain with palpation to B suboccipitals, cervical paraspinals, SCM, and UT Posture: pts head rests forward in sitting with significant forward rounding of shoulders and increased thoracic kyphosis Assessment Assessment/ Jennifer is a very pleasant 55 year old female who Impression presents to our clinic for evaluation and treatment of neck pain. Pts MRI is concerning for cervical radiculopathy with central and foraminal stenosis noted (see MRI). Today's evaluation was not very clear as pt tested inconsistently with AROM and strength measurements in her neck and upper extremities. We also did not have enough to to evaluate Jennifer's functional strength. We will plan to assess this some time in the future when her neck pain improves somewhat. The pain that she is feeling distally also appears to be related to a combination of anxiety with chest pain and RTC impingement with lateral shoulder pain. Some of this pain may also be due to increased muscle tension as well as a radicular source. I explained to Jennifer and her Gian that our most likely plan of action will be to reduce pain about the neck with STM and stretching following by gradual and progressive muscle activation and strengthening with a goal of improving Jennifer's posture. The nature of the pts condition was explained and all questions were answered to the pts satisfaction. Skilled PT services are medically necessary to address deficits and return patient to highest level of function. Recommend physical therapy sessions 1-2/week for 4-6 weeks. Pt agrees with this plan. Printout of HEP was given for I completion and pt gives verbal understanding of each exercise. Plan of Care Rehabilitation [facility] STG - To be completed in 2-3 weeks: Goals 1. Pt will report reduction in neck pain by factor of 2 so that they may roll over in bed without waking due to pain. 2. Pt will report reduction in headache intensity by factor of 2 so that they may remain functional at home when headaches do occur. LTG - To be completed in 6 weeks: 1. Pt to be I with HEP so that they may I manage progression of symptoms. 2. Pt will demo full and pain free cervical rotation ROM and lateral flexion ROM so that they may look over shoulder while driving to watch for traffic. 3. Pt will report max 4/10 neck pain with all activities so that they may return to participating in recreational activities with their friends and family. 4. Pt will report reduction of frequency of headaches to 1/week so that headaches minimally interfere with them during crafting hours. 5. Pt will report ability to sleep at least 6 hours without waking due to pain so that they may wake well rested with reduced mental fatigue during working hours . Treatment Plan/ Electrical Stimulation,Gait Training,Heat,Ice/Cold/ Direct Interventions Vasopneumatic,Joint Mobilization,Manual Therapy, Neuromuscular Re-ed,Self-Care/Home Management, Therapeutic Activities,Therapeutic Exercises Frequency/Duration 1-2/week for 4-6 weeks Patient Will Be Completion of LTG(s),Skills Plateau,Independent w/HEP, Discharged From Independently Progressing Therapy Evaluation Billing Untimed Code 60 Treatment Minutes PT Eval No Charge No Complexity High Certification Information Initial 04/07/25 Certification Date Ending Certification 07/06/25 Date Provider Signature Yes Required Provider Signature POC & Medical Necessity Shows Agreement With Physician NPI Number Write NPI# Here Physician Comment/ : Change Physician Signature Please Sign/Date Here & Date Requested
== END 2025-06-21 09:03 | disposition home or self-care (01) ==
PROVIDERS: PCP Internal Medicine; Visit Provider Family Medicine
DX: M53.81 Other specified dorsopathies, occipito-atlanto-axial region (principal); M48.02 Spinal stenosis, cervical region; M54.12 Radiculopathy, cervical region; Z51.89 Encounter for other specified aftercare
CPT/HCPCS: 97110; 97140; 97163

== ENCOUNTER 2025-05-20 10:10 | Outpatient (CLI) | payer MEDICARE, MEDICAID, SELFPAY ==
--- NOTE | 2025-05-20 10:15 | CRLHL7_ITS ---
For Patients: As a result of the Century Cures Act, medical imaging exams and procedure reports are released immediately into your electronic medical record. You may view this report before your referring provider. If you have questions, please contact your health care provider. Technique: Double-contrast esophagram performed after the uneventful administration of effervescent crystals and thick barium followed by thin barium. Fluoroscopy time 1 minute 3 seconds. Indication: dysmotility esophageal Comparison: None. Findings: No obstruction. No hernia. Numerous tertiary contractions are present during the examination within the mid and distal esophagus. No esophageal mucosal irregularity. No diverticulum or ulcer. Decreased esophageal motility. Impression: Decreased esophageal motility with some reflux noted. Associated tertiary contractions in the mid and distal esophagus. Dictated by Keon Graff MD @ 05/20/2025 1:46:38 PM (Electronically Signed)
== END 2025-05-20 10:11 | disposition home or self-care (01) ==
LOC: RAD 10:12
PROVIDERS: PCP Internal Medicine; Visit Provider Internal Medicine
DX: R13.10 Dysphagia, unspecified (principal)
CPT/HCPCS: 74221